=== PATIENT | female | born 1955 | race Caucasian/White ===

== ENCOUNTER → 2019-11-22 | Outpatient (CLI) | payer MEDICARE, SELFPAY ==
[2019-11-22 13:54] LABS: Absolute Lymphocyte Count 1.78 X10^3/uL (0.83-4.51); Absolute Neutrophil Count 6.9 X10^3/uL (2.0-7.7); Basophil# 0.09 X10^3/uL; Basophil% 0.9 % (0-1); Eosinophil# 0.27 X10^3/uL; Eosinophils% 2.8 % (0-5); Hematocrit 36.8 % (37-47); Hemoglobin 12.1 g/dL (12.0-15.0); Lymphocyte # 1.78 X10^3/ul (4.0); Lymphocyte % 18.6 % (19-41); Mean Corp Hgb Conc 32.9 g/dL (32-36); Mean Corpuscular Hgb 31.7 pg (27.0-32.0); Mean Corpuscular Volume 96.3 fL (81-99); Mean Platelet Vol. 9.2 fl (6.2-12.0); Monocyte# 0.54 X10^3/uL; Monocyte% 5.6 % (0-10); NRBC Flagged by Analyzer 0 % (0-5); Neutrophil # 6.85 X10^3/uL (2.7-7.7); Neutrophil % 71.7 % (47-70); Platelet Count 370 K/mm3 (150-450); RBC Distribution Width CV 14.3 % (11.6-14.6); RBC Distribution Width SD 49.9 fl (35.1-43.9); Red Blood Count 3.82 M/mm3 (4.2-5.4); White Blood Count 9.6 K/mm3 (4.4-11.0)
[2019-11-22 14:01] LABS: Color, Urine Yellow (Yellow); Glucose, Dipstick Normal (Normal); Ketone-Dipstick Negative (Negative); Leukocyte Esterase-Dipstick Negative /ul (Negative); Nitrite-Dipstick Negative (Negative); Occult Blood-Urine Negative /ul (Negative); Protein-Dipstick Negative (Negative); Urine Bilirubin Dipstick Negative (Negative); Urine Clarity Clear (Clear); Urine Urobilinogen Normal (Normal)
[2019-11-22 14:20] LABS: Microalbumin,Random Urine 23.5 mg/L (NO RANGE EST.)
[2019-11-22 14:24] LABS: Hemoglobin A1c 6.5 % (3.8-5.6)
[2019-11-22 14:44] LABS: ALB/GLOB Ratio 1.1 RATIO (0.9-2.4); AST(SGOT) 8 U/L (15-37); Alanine Aminotransfer ALT/SGPT 21 U/L (13-56); Albumin, Serum 4.1 g/dL (3.2-5.0); Alkaline Phosphatase 73 U/L (45-117); Anion Gap 9 (5-15); BUN 37 mg/dL (7-18); BUN/Creat Ratio 25.3 RATIO (10-20); Calcium,Total 8.3 mg/dL (8.5-10.1); Chloride 102 mmol/L (98-107); Cholesterol 157 mg/dL (200); Creatinine, Serum 1.46 mg/dL (0.55-1.02); EST Glomerular Filtration Rate 38 mL/min (>60); Est Glom Filt Rate - Afr Amer 47 mL/min (>60); Globulin 3.9 g/dL (2.2-4.2); Glucose 115 mg/dL (74-106); High Density Lipoprotein 38 mg/dL; Potassium 4.8 mmol/L (3.5-5.1); Sodium Level 134 mmol/L (136-145); Triglycerides 328 mg/dL; Very Low Density Lipoprotein 66 mg/dL (5-40)
[2019-11-25 08:53] LABS: Vitamin B12 451 pg/mL (211-911); Vitamin D,25 Hydroxy 69.2 ng/mL
== END | disposition home or self-care (01) ==
LOC: LAB 13:20
PROVIDERS: PCP Family Medicine; Visit Provider Family Medicine
DX: E11.9 Type 2 diabetes mellitus without complications (principal)
CPT/HCPCS: 36415; 80053; 80061; 81002; 82043; 82306; 82607; 83036; 84443; 85025

== ENCOUNTER 2020-03-04 15:05 | Inpatient (IN) | payer MEDICARE, SELFPAY ==
[2020-03-04] VITALS (9 sets, daily range): BP systolic 159–169; BP diastolic 63–76; PULSE 43–67; RESP 15–16; TEMP 36.6–36.8; O2SAT 96–99; BMI 26.6; BMI 26.7
--- NOTE | 2020-03-04 15:08 | EKG12_ITS ---
Test Reason : SOB Blood Pressure : / mmHG Vent. Rate : 049 BPM Atrial Rate : 049 BPM P-R Int : 168 ms QRS Dur : 096 ms QT Int : 462 ms P-R-T Axes : 044 -59 -43 degrees QTc Int : 417 ms Sinus bradycardia with sinus arrhythmia Left axis deviation ST & T wave abnormality, consider anterolateral ischemia Abnormal ECG Confirmed by LAURA LOPEZ, ADELINA ([id number]), research editor AZAEL THORNE ([id number]) on 03/10/2020 8:10:44 AM Referred By: MARK Confirmed By:ADELINA SANCHEZ MD
--- NOTE | 2020-03-04 15:08 | CT_ITS ---
STUDY: CT BRAIN WITHOUT CONTRAST REASON FOR EXAM: Female, 64 years old. CONFUSION RADIATION DOSAGE (If Supplied By Facility): CTDIvol = ( 44.99 ) mGy, DLP = ( 762.36 ) mGycm TECHNIQUE: Transaxial CT imaging of the brain was performed without administration of intravenous contrast material. Individualized dose optimization techniques were used for this CT. COMPARISON: No relevant priors. FINDINGS: Normal soft tissue structures. Normal calvarium. There is mild cerebral atrophy with widening of the extra-axial spaces and ventricular dilatation. Normal white matter tracts of the cerebral hemispheres. Normal basal ganglia and thalami. Normal brainstem. Normal cerebellum. There is no intracranial hemorrhage. There are no findings of an acute ischemic infarction. Mucosal thickening of the maxillary sinuses bilaterally. CT/Brain/Head without Contrast IMPRESSION: Chronic involutional changes of the brain. Electronically Signed: Lloyd Evans, at 16:04 EDT , Service support ,
--- NOTE | 2020-03-04 15:13 | ED.VIS.GEN ---
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 The patient states that she has been feeling sick for about a week. She was around her granddaughter who had an upper respiratory illness. She states that she is had cough and has been feeling short of breath. She describes just generalized weakness. Today, she had a change in her responsiveness. On squad arrival, the patient was more alert and began to answer some questions. There was no reported seizure activity. The patient normally gets her care in the [facility]. She is unsure of all of her medications. She denies any head trauma. She denies any other systemic complaints. Prior similar symptoms: No Recent Illness/Hospitalization: No Past Medical History - Allergies and Home Meds Allergies/Adverse Reactions: Allergies duloxetine [From Cymbalta] Allergy (Verified 03/04/20 15:08) Itching tomato Allergy (Verified 03/04/20 15:08) Itching Primary Care Physician: Yamila Tompkins MD [Primary Care Provider] - Prior records reviewed: Yes Past Medical History: - - Bipolar disorder, chronic diarrhea, chronic kidney disease, diabetes, fibromyalgia, smoking history Surgical History: noncontributory Review of Systems General: Reports: Chills. Denies: Fever, Sweats Eyes: Denies: Visual changes - bilaterally, Diplopia ENT: Denies: Rhinorrhea, Sore throat Cardiovascular: Denies: Chest pain, Palpitations Respiratory: Reports: Cough. Denies: Dyspnea, Dyspnea on exertion Gastrointestinal: Reports: Nausea. Denies: Abdominal pain, Vomiting, Diarrhea, Melena, Hematochezia Genitourinary: Denies: Dysuria, Hematuria, Frequency Musculoskeletal: Denies: Back pain, Extremity Pain Skin: Denies: Rash, Wounds Neurological: Denies: Headache, Weakness, Numbness Psych: Reports: Anxiety Physical Exam Vital Signs/Narrative: Vital Signs Temp Pulse Resp BP Pulse Ox 03/04/20 15:12 98 F 52 L 18 163/71 H 97 03/04/20 15:07 98 F 52 L 18 163/71 H 97 Inital Vital Signs reviewed: Yes General: Well nourished, Well developed, No Acute Distress Head: Normocephalic, Atraumatic Eyes: Perrl, EOMI ENT: Moist mucous membranes, No rhinorrhea Neck: Supple, Nontender Cardiovascular: Regular rate, Regular rhythm, No murmurs Respiratory: No distress, CTA bilaterally, Chest nontender Abdomen: Soft, Nontender, Nondistended, Normal bowel sounds Back: Nontender, Normal Inspection Extremities: Nontender, No edema Skin: Normal color, No rash Neurological: Alert, Cranial nerves II-XII grossly intact, Normal Strength, Normal Sensation, Disoriented Diagnostic/Tx/Re-eval Clinical Impression(s) from Imaging Studies Brain CT 03/04/20 15:08 IMPRESSION: Chronic involutional changes of the brain. Electronically Signed: Lloyd Evans, at 16:04 EDT , Service support , Chest X-Ray 03/04/20 16:05 IMPRESSION: No acute thoracic pathology. Electronically Signed: Davie Rapp, at 16:19 EDT Tel , Service support , Abnormal Lab Results 03/04/20 03/04/20 03/04/20 15:25 15:25 15:25 WBC 12.7 H RBC 4.01 L Hgb 12.1 Hct 38.0 MCV 94.8 MCH 30.2 MCHC 31.8 L RDW Std Deviation 47.8 H RDW Coeff of Yaw 13.7 Plt Count 457 H MPV 8.8 Immature Gran % (Auto) 0.800 Neut % (Auto) 67.8 Lymph % (Auto) 20.1 [place] % (Auto) 7.7 Eos % (Auto) 3.0 Baso % (Auto) 0.6 Absolute Neuts (auto) 8.6 H Absolute Lymphs (auto) 2.55 Nucleated RBC % 0 Specimen Type Sample Site pH Bicarbonate Actual Total CO2 Base Excess O2 Saturation ABG pCO2 ABG pO2 Daniel Test O2 Delivery Device Sodium 135 L Potassium 3.7 Chloride 101 Carbon Dioxide 23.0 Anion Gap 11 BUN 29 H Creatinine 2.82 H Estim Creat Clear Calc 19.34 Est GFR (MDRD) Af Amer 22 L Est GFR (MDRD) Non-Af 18 L BUN/Creatinine Ratio 10.3 Glucose 127 H Lactic Acid 3.2 H* Calcium 8.2 L Total Bilirubin 0.40 AST 20 ALT 20 Alkaline Phosphatase 97 Ammonia Troponin I < 0.015 B-Natriuretic Peptide Total Protein 7.2 Albumin 3.3 Globulin 3.9 Albumin/Globulin Ratio 0.8 L Urine Color Urine Clarity Urine pH Ur Specific [place] Urine Protein Urine Glucose (UA) Urine Ketones Urine Occult Blood Urine Nitrite Urine Bilirubin Urine Urobilinogen Ur Leukocyte Esterase Urine RBC Urine WBC Ur Squamous Epith Cells Urine Bacteria Urine Mucus Urine Opiates Screen Urine Methadone Screen Ur Barbiturates Screen Valproic Acid Ur Phencyclidine Scrn Ur Amphetamines Screen U Methamphetamin-MDMA U Benzodiazepines Scrn Urine Cocaine Screen U Cannabinoids Screen Ur Drug Screen Comment 03/04/20 03/04/20 03/04/20 15:25 15:25 15:25 WBC RBC Hgb Hct MCV MCH MCHC RDW Std Deviation RDW Coeff of Yaw Plt Count MPV Immature Gran % (Auto) Neut % (Auto) Lymph % (Auto) [place] % (Auto) Eos % (Auto) Baso % (Auto) Absolute Neuts (auto) Absolute Lymphs (auto) Nucleated RBC % Specimen Type Sample Site pH Bicarbonate Actual Total CO2 Base Excess O2 Saturation ABG pCO2 ABG pO2 Daniel Test O2 Delivery Device Sodium Potassium Chloride Carbon Dioxide Anion Gap BUN Creatinine Estim Creat Clear Calc Est GFR (MDRD) Af Amer Est GFR (MDRD) Non-Af BUN/Creatinine Ratio Glucose Lactic Acid Calcium Total Bilirubin AST ALT Alkaline Phosphatase Ammonia Troponin I B-Natriuretic Peptide 26.9 Total Protein Albumin Globulin Albumin/Globulin Ratio Urine Color Yellow Urine Clarity Sl. Cloudy Urine pH 6.0 Ur Specific [place] 1.015 Urine Protein 30 H Urine Glucose (UA) Normal Urine Ketones Negative Urine Occult Blood 10 H Urine Nitrite Negative Urine Bilirubin Negative Urine Urobilinogen Normal Ur Leukocyte Esterase Negative Urine RBC 0 SEEN Urine WBC 0 SEEN Ur Squamous Epith Cells 10-25 SEEN Urine Bacteria 2+ Urine Mucus 0 SEEN Urine Opiates Screen NEGATIVE Urine Methadone Screen NEGATIVE Ur Barbiturates Screen NEGATIVE Valproic Acid Ur Phencyclidine Scrn NEGATIVE Ur Amphetamines Screen NEGATIVE U Methamphetamin-MDMA NEGATIVE U Benzodiazepines Scrn NEGATIVE Urine Cocaine Screen NEGATIVE U Cannabinoids Screen NEGATIVE Ur Drug Screen Comment 03/04/20 03/04/20 03/04/20 15:25 15:25 15:43 WBC RBC Hgb Hct MCV MCH MCHC RDW Std Deviation RDW Coeff of Yaw Plt Count MPV Immature Gran % (Auto) Neut % (Auto) Lymph % (Auto) [place] % (Auto) Eos % (Auto) Baso % (Auto) Absolute Neuts (auto) Absolute Lymphs (auto) Nucleated RBC % Specimen Type ART Sample Site R Radial pH 7.38 Bicarbonate Actual 19.5 L Total CO2 21 Base Excess -6 L O2 Saturation 97 ABG pCO2 33.0 L ABG pO2 86 Daniel Test Positive O2 Delivery Device Room Air Sodium Potassium Chloride Carbon Dioxide Anion Gap BUN Creatinine Estim Creat Clear Calc Est GFR (MDRD) Af Amer Est GFR (MDRD) Non-Af BUN/Creatinine Ratio Glucose Lactic Acid Calcium Total Bilirubin AST ALT Alkaline Phosphatase Ammonia < 10.0 L Troponin I B-Natriuretic Peptide Total Protein Albumin Globulin Albumin/Globulin Ratio Urine Color Urine Clarity Urine pH Ur Specific [place] Urine Protein Urine Glucose (UA) Urine Ketones Urine Occult Blood Urine Nitrite Urine Bilirubin Urine Urobilinogen Ur Leukocyte Esterase Urine RBC Urine WBC Ur Squamous Epith Cells Urine Bacteria Urine Mucus Urine Opiates Screen Urine Methadone Screen Ur Barbiturates Screen Valproic Acid 26 L Ur Phencyclidine Scrn Ur Amphetamines Screen U Methamphetamin-MDMA U Benzodiazepines Scrn Urine Cocaine Screen U Cannabinoids Screen Ur Drug Screen Comment - Rhythm Strip Rhythm Strip: Sinus Rhythm Rate: 55 Ectopy: None - EKG Initial EKG Interpretation: Sinus Bradycardia, Non-Specific ST Changes Prior: No Prior - Medical Decision Making The patient presents with malaise, fatigue, and change in mental status. On of arrival, she is awake and alert. She has a nonfocal neurologic examination. He was able to review some of her outpatient testing. The patient is recently diagnosed with exocrine pancreatic insufficiency. She has chronic diarrhea. She states that she has been having diarrhea with more frequency, increasingly weak, and has not been eating or drinking as much. Metabolic work-up was pursued. Noncontrast head CT was obtained given the reported change in mental status. This was negative. She is not meningitic or encephalopathic. EKG was obtained. It does demonstrate sinus bradycardia with some nonspecific ST changes. I was able to review a report from an outpatient EKG that describes it as the same, but was not able to see any of the images. Patient does have my leukocytosis. She also has evidence of acute kidney injury and a mildly elevated lactic acid. She is afebrile. She has no evidence of infectious process. My suspicion is that this is likely prerenal and she is dehydrated from her chronic diarrhea. Patient was given 2 L of fluids. COVID testing was obtained. This was negative. The patient started on magnesium replacement. I do feel that this is an exacerbation of dehydration that is likely causing her symptoms. However, given her bradycardia and acute kidney injury, the patient will be admitted. Impression 1. Bradycardia 2. Acute kidney injury 3. Hypomagnesemia 4. Lactic acidosis ED Disposition - Plan for ED Patient: Referrals: Yamila Tompkins MD [Primary Care Provider] -
[2020-03-04 15:38] LABS: Mucous, Urine 0 SEEN /hpf (<or=2+); Red Blood Cells-Urine 0 SEEN /hpf (0-5); White Blood Cells 0 SEEN /hpf (0-5)
[2020-03-04 15:42] LABS: Absolute Lymphocyte Count 2.55 X10^3/uL (0.83-4.51); Absolute Neutrophil Count 8.6 X10^3/uL (2.0-7.7); Basophil# 0.07 X10^3/uL; Basophil% 0.6 % (0-1); Eosinophil# 0.38 X10^3/uL; Hemoglobin 12.1 g/dL (12.0-15.0); Lymphocyte # 2.55 X10^3/ul (4.0); Lymphocyte % 20.1 % (19-41); Mean Corp Hgb Conc 31.8 g/dL (32-36); Mean Corpuscular Hgb 30.2 pg (27.0-32.0); Mean Corpuscular Volume 94.8 fL (81-99); Mean Platelet Vol. 8.8 fl (6.2-12.0); Monocyte# 0.98 X10^3/uL; Monocyte% 7.7 % (0-10); NRBC Flagged by Analyzer 0 % (0-5); Neutrophil # 8.59 X10^3/uL (2.7-7.7); Neutrophil % 67.8 % (47-70); Platelet Count 457 K/mm3 (150-450); RBC Distribution Width CV 13.7 % (11.6-14.6); RBC Distribution Width SD 47.8 fl (35.1-43.9); Red Blood Count 4.01 M/mm3 (4.2-5.4); White Blood Count 12.7 K/mm3 (4.4-11.0)
[2020-03-04 15:44] LABS: Vista UDS pH Range 6
[2020-03-04 15:50] LABS: Allen Test Positive; Base Excess -6 mmol/L (-2 to +2); Bicarbonate 19.5 mmol/L (22-26); Blood Gas Specimen Type ART; O2 Delivery Device Room Air; PO2 86 mmHG (75-100); SITE R Radial; SO2 97 % (95-99); Total Carbon Dioxide 21 mmol/L; pH 7.38 (7.35-7.45)
[2020-03-04 15:55] LABS: Amphetamine Urine VISTA NEGATIVE (<1000 ng/mL); Barbiturate Urine VISTA NEGATIVE (< 200 ng/mL); Benzodiazepine Urine VISTA NEGATIVE (< 200 ng/mL); Cocaine Urine VISTA NEGATIVE (< 300 ng/mL); Ecstacy Urine VISTA NEGATIVE (< 500 ng/mL); Methadone Urine VISTA NEGATIVE (< 300 ng/mL); PCP Urine VISTA NEGATIVE (< 25 ng/mL); THC Urine VISTA NEGATIVE (< 50 ng/mL)
[2020-03-04 16:03] LABS: BNP,B-Type NATRIURETIC PEPTIDE 26.9 pg/mL (0-100)
--- NOTE | 2020-03-04 16:05 | RAD_ITS ---
STUDY: X-RAY CHEST REASON FOR EXAM: Female, 64 years old. Confusion TECHNIQUE: Frontal view of the chest COMPARISON: None. FINDINGS: The lungs are clear. There are no pleural effusions. There is no pneumothorax. The heart is normal in size. The visualized osseous structures are within normal limits. RAD/Chest 1 View (Portable) IMPRESSION: No acute thoracic pathology. Electronically Signed: Davie Rapp, at 16:19 EDT Tel , Service support ,
[2020-03-04 16:07] LABS: ALB/GLOB Ratio 0.8 RATIO (0.9-2.4); AST(SGOT) 20 U/L (15-37); Alanine Aminotransfer ALT/SGPT 20 U/L (13-56); Albumin, Serum 3.3 g/dL (3.2-5.0); Alkaline Phosphatase 97 U/L (45-117); Ammonia < 10.0 umol/L (11-32); Anion Gap 11 (5-15); BUN 29 mg/dL (7-18); BUN/Creat Ratio 10.3 RATIO (10-20); Calcium,Total 8.2 mg/dL (8.5-10.1); Chloride 101 mmol/L (98-107); Creatinine, Serum 2.82 mg/dL (0.55-1.02); EST Glomerular Filtration Rate 18 mL/min (>60); Est Glom Filt Rate - Afr Amer 22 mL/min (>60); Estimated Creatinine Clearance 19.34 ml/min; Globulin 3.9 g/dL (2.2-4.2); Glucose 127 mg/dL (74-106); Potassium 3.7 mmol/L (3.5-5.1); Protein, Total 7.2 g/dL (6.4-8.2); Sodium Level 135 mmol/L (136-145)
[2020-03-04 16:11] LABS: Color, Urine Yellow (Yellow); Glucose, Dipstick Normal (Normal); Ketone-Dipstick Negative (Negative); Leukocyte Esterase-Dipstick Negative /ul (Negative); Nitrite-Dipstick Negative (Negative); Occult Blood-Urine 10 /ul (Negative); Protein-Dipstick 30 mg/dl (Negative); Specific Gravity, Urine 1.015 (1.002-1.030); Urine Bilirubin Dipstick Negative (Negative); Urine Clarity Sl. Cloudy (Clear); Urine Urobilinogen Normal (Normal)
[2020-03-04] MEDS: 0.9% Normal Saline 1,000 ML 999 ML IV ×2 (16:12→17:14)
--- NOTE | 2020-03-04 16:15 | ED.RN ---
MADE AWARE OF SEPSIS ALERT
[2020-03-04 16:18] LABS: Valproic Acid (Depakene) Level 26 ug/mL (50-100)
[2020-03-04 16:21] LABS: Lactic Acid 3.2 mmol/L (0.4-1.9)
[2020-03-04 16:26] LABS: Bacteria 2+ /hpf (None Seen); Squamous Epithelial Cells - UA 10-25 SEEN /hpf (5-10)
[2020-03-04 18:04] LABS: Magnesium 0.9 mg/dL (1.6-2.6)
--- NOTE | 2020-03-04 18:56 | HP.PCM_ITS ---
Problem List (1) Lactic acidosis Status: Acute (2) Hypomagnesemia Status: Acute (3) Acute kidney injury superimposed on chronic kidney disease Status: Acute (4) Symptomatic bradycardia Status: Acute (5) Hyperlipidemia Status: Chronic (6) Type 2 diabetes mellitus Status: Chronic (7) Hypothyroidism Status: Chronic (8) Hypertension Status: Chronic (9) Bipolar disorder Status: Chronic (10) Chronic pancreatic insufficiency Status: Chronic (11) Depression Status: Chronic History of Present Illness Date of Admission: 03/04/20 Chief Complaint: Dizziness, near syncope. The patient is a 64 year old F with past medical history as mentioned above presented to the emergency room because of dizziness and near syncopal episode. Patient stated that she was standing in the kitchen started to prepare her dinner, felt dizzy and lightheaded, she laid herself slowly to the floor but she denied loss of consciousness. She reported mild shortness of breath associated with it. She denied chest pain, palpitation. She reported cough which has been going on for several days, no sputum production. She denies fever or chills. She reported poor appetite and poor oral intake. She does have chronic diarrhea secondary to chronic pancreatic insufficiency. She history of type 2 diabetes mellitus, has been on Lantus and her blood sugar has been under control, her hemoglobin A1c was 6.5% on November,. She had history of hypothyroidism, she has been on levothyroxine and TSH was normal on November,. She had history of chronic pancreatic insufficiency with chronic diarrhea at baseline and she has been on Creon replacement. In the emergency department, patient was afebrile, bradycardic with heart rate of mid 40s, blood pressure was slightly dilated, pulse ox was maintained on room air. Routine blood work was remarkable for mild leukocytosis, BUN of 29, creatinine is 2.82. Lactic acid was 3.2. Serum magnesium was 0.9. LFT was unremarkable. EKG revealed sinus bradycardia, no acute segment changes. Troponin was negative. Ammonia level was less than 10. Urinalysis revealed cloudy urine, negative for nitrite and leukocyte esterase, there was no WBCs, 2+ bacteria seen. Urine drug screen was negative. COVID-19 PCR was negative. Chest x-ray showed no acute findings. CT scan brain showed no acute findings. She is being admitted for acute kidney injury on top of stage III 3 kidney disease, symptomatic bradycardia and hypomagnesemia. Past Medical History Past Medical History (Chronic Problems): Chronic Problems Hyperlipidemia (Chronic) Type 2 diabetes mellitus (Chronic) Hypothyroidism (Chronic) Hypertension (Chronic) Bipolar disorder (Chronic) Chronic pancreatic insufficiency (Chronic) Depression (Chronic) Allergies duloxetine [From Cymbalta] Allergy (Verified 03/04/20 15:08) Itching tomato Allergy (Verified 03/04/20 15:08) Itching Home Medications: Ambulatory Orders Medication Instructions Recorded Allopurinol 100 mg PO QHS 03/04/20 Atorvastatin Calcium [Lipitor] 20 mg PO DAILY 03/04/20 Divalproex Sodium 125 mg PO BID 03/04/20 Gabapentin [Neurontin] 600 mg PO TID 03/04/20 Hydrocodone/Acetaminophen 1 - 2 tab PO Q4H PRN PRN 03/04/20 [Hydrocodone-Acetamin 5-325 mg] Hydroxyzine HCl 25 mg PO DAILY 03/04/20 Insulin Glargine [Lantus SoloStar 40 units SQ QHS 03/04/20 Pen] Levothyroxine [Synthroid] 112 mcg PO DAILY 03/04/20 Lipase/Protease/Amylase [Creon Dr 2 cap PO BIDCM 03/04/20 24,000 Units Capsule] Metoprolol Tartrate 50 mg PO BID 03/04/20 Pantoprazole Sodium [Protonix] 40 mg PO DAILY 03/04/20 Trazodone HCl 150 mg PO QHS 03/04/20 Triamterene 37.5MG/Hctz 25MG 1 tab PO DAILY 03/04/20 [Maxzide 37.5 mg-25 mg Tablet] Surgical History: appendectomy, cholecystectomy, hysterectomy, - - Carpal tunnel surgery. 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 Denies: Chills, Fever Eyes: Denies: Blurred vision, Double vision, Drainage, Redness HEENT: Denies: Difficulty Hearing, Ear Pain, Eye Pain, Nasal Congestion, Sore Throat Cardiovascular: Denies: Chest Pain, Chest Pressure, Edema, Heaviness, Light Headedness, Palpitations, Syncope Respiratory: Denies: Cough, Pleuritic Pain, Shortness of Breath, Sputum production, Wheezing Gastrointestinal: Reports: Diarrhea. Denies: Abdominal Pain, Constipation, Nausea, Vomiting Genitourinary: Denies: Dysuria, Frequency, Hematuria Musculoskeletal: Denies: Arm Pain, Back Pain, Foot Pain Skin: Denies: Dryness, Rash Neurological: Denies: Balance problems, Double vision, Change in Speech, Slurred speech, Confusion, Headaches, Incoordination, Numbness Psychiatric: Reports: Depression. Denies: Anxiety Endocrine: Denies: Change in Body Habitus, Polydipsia, Polyuria VTE Information - Inpt Only VTE Present on Admission: No VTE Mechan Device Prophylaxis: None VTE Pharm Prophylaxis ordered?: Yes Patient Problems: Active and Suspected Problems Lactic acidosis (Acute) Hypomagnesemia (Acute) Acute kidney injury superimposed on chronic kidney disease (Acute) Symptomatic bradycardia (Acute) - Physical Exam Vitals/I&O's: Vital Signs Temp Pulse Resp BP Pulse Ox 97.8 F 43 L 16 168/63 H 99 03/04/20 18:53 03/04/20 18:53 03/04/20 18:53 03/04/20 18:53 03/04/20 18:53 Weight: 132 lb 4.438 oz Body Mass Index (BMI) 26.6 Intake and Output for Last 24 Hours 03/02/20 03/03/20 03/04/20 23:59 23:59 23:59 Intake Total 1999 Balance 1999 General: Alert, Oriented x3, Cooperative, No apparent distress HEENT: Atraumatic, PERRLA, EOMI, Normocephalic Oral: No Gingival or Mucosal Lesions/ Ulcerations, Dry Mucosa Neck: Supple, No JVD, Negative Carotid Bruits, Trachea Midline, Thyroid Normal Size and Texture Lungs: Clear to auscultation, Normal air movement, No rhonchi, No wheeze, No rales Cardiovascular: Regular rate, Regular Rhythm, Normal S1, Normal S2, PMI Normal, Bradycardic Abdomen: Bowel Sounds Present, Soft, Non Tender, Non-Distended, No Hepato-splenomegaly Extremities: No clubbing, No cyanosis, No edema Skin: No rashes, No breakdown Lymphatic: No Cervical, Supraclavicular, or Inguinal Adenopathy Neurological: Cranial nerves II-XII grossly intact, Motor Exam 5/5 strength throughout Psych/Mental Status: Normal Affect, Appropriate, Alert and oriented to time, place, person, mood and affect Laboratory Results 03/04/20 15:25: WBC 12.7 H, RBC 4.01 L, Hgb 12.1, Hct 38.0, MCV 94.8, MCH 30.2, MCHC 31.8 L, RDW Std Deviation 47.8 H, RDW Coeff of Yaw 13.7, Plt Count 457 H, MPV 8.8, Immature Gran % (Auto) 0.800, Neut % (Auto) 67.8, Lymph % (Auto) 20.1, [place] % (Auto) 7.7, Eos % (Auto) 3.0, Baso % (Auto) 0.6, Absolute Neuts (auto) 8.6 H, Absolute Lymphs (auto) 2.55, Nucleated RBC % 0 03/04/20 15:25: Sodium 135 L, Potassium 3.7, Chloride 101, Carbon Dioxide 23.0, Anion Gap 11, BUN 29 H, Creatinine 2.82 H, Estim Creat Clear Calc 19.34, Est GFR (MDRD) Af Amer 22 L, Est GFR (MDRD) Non-Af 18 L, BUN/Creatinine Ratio 10.3, Glucose 127 H, Calcium 8.2 L, Total Bilirubin 0.40, AST 20, ALT 20, Alkaline Phosphatase 97, Troponin I < 0.015, Total Protein 7.2, Albumin 3.3, Globulin 3.9, Albumin/Globulin Ratio 0.8 L 03/04/20 15:25: Lactic Acid 3.2 H* 03/04/20 15:25: B-Natriuretic Peptide 26.9 03/04/20 15:25: Urine Color Yellow, Urine Clarity Sl. Cloudy, Urine pH 6.0, Ur Specific [place] 1.015, Urine Protein 30 H, Urine Glucose (UA) Normal, Urine Ketones Negative, Urine Occult Blood 10 H, Urine Nitrite Negative, Urine Bilirubin Negative, Urine Urobilinogen Normal, Ur Leukocyte Esterase Negative, Urine RBC 0 SEEN, Urine WBC 0 SEEN, Ur Squamous Epith Cells 10-25 SEEN, Urine Bacteria 2+, Urine Mucus 0 SEEN 03/04/20 15:25: Urine Opiates Screen NEGATIVE, Urine Methadone Screen NEGATIVE, Ur Barbiturates Screen NEGATIVE, Ur Phencyclidine Scrn NEGATIVE, Ur Amphetamines Screen NEGATIVE, U Methamphetamin-MDMA NEGATIVE, U Benzodiazepines Scrn NEGATIVE, Urine Cocaine Screen NEGATIVE, U Cannabinoids Screen NEGATIVE, Ur Drug Screen Comment 03/04/20 15:25: Valproic Acid 26 L 03/04/20 15:25: Ammonia < 10.0 L 03/04/20 15:25: Magnesium 0.9 L* 03/04/20 15:30: COVID-19 (JUAN) Not Detected 03/04/20 15:43: Specimen Type ART, Sample Site R Radial, pH 7.38, Bicarbonate Actual 19.5 L, Total CO2 21, Base Excess -6 L, O2 Saturation 97, ABG pCO2 33.0 L , ABG pO2 86, Daniel Test Positive, O2 Delivery Device Room Air Clinical Impression(s) from Imaging Studies Brain CT 03/04/20 15:08 IMPRESSION: Chronic involutional changes of the brain. Electronically Signed: Lloyd Evans, at 16:04 EDT , Service support , Chest X-Ray 03/04/20 16:05 IMPRESSION: No acute thoracic pathology. Electronically Signed: Davie Rapp, at 16:19 EDT Tel , Service support , Current Medications Magnesium Sulfate 2 gm/ Sodium (Chloride) 104 mls @ 52 mls/hr IV X1 ONE Stop: 03/04/20 20:03 Assessment/Plan All Active Problems Lactic acidosis (Acute) Hypomagnesemia (Acute) Acute kidney injury superimposed on chronic kidney disease (Acute) Symptomatic bradycardia (Acute) This is a 64 years old female patient presented to the emergency room because of dizziness, near syncopal episode as well as weakness and mild shortness of breath, found to have acute kidney injury on top of stage III chronic kidney dis ease, symptomatic bradycardia as well as severe hypomagnesemia and she is being admitted for evaluation and treatment. #1 dizziness/presyncopal episode: Is probably due to bradycardia in addition to acute kidney injury. Heart rate has been in the mid 40s in the ED, blood pressure was elevated. EKG revealed sinus bradycardia, otherwise no acute ischemic changes or other cardiac arrhythmias. Troponin is negative. CT scan brain showed no acute findings. Chest x-ray without acute infiltrate or consolidation. Urinalysis was negative for UTI. Plan: Admit to PCU, cardiac monitoring, IV fluids, decrease dose of metoprolol, input output chart, repeat CBC and BMP tomorrow morning, PT OT evaluation and treatment. #2 acute kidney injury on top of stage III chronic kidney disease: Creatinine w as 1.46 on November,, it is 2.82 today. It is prerenal secondary to poor oral intake, dehydration and chronic diarrhea. Plan: IV fluids, input output chart, hold nephrotoxic drugs, repeat BMP tomorrow morning. #3 asymptomatic bradycardia: Likely due to beta-blockers, no evidence of other cardiac arrhythmias on EKG. Troponin is negative. Plan to decrease metoprolol to 12.5 mg p.o. twice daily, monitor, repeat EKG tomorrow morning. #4 severe hypomagnesemia: Replace magnesium with IV magnesium sulfate, repeat serum medicine tomorrow morning. Serum potassium is normal. #5 leukocytosis/lactic acidosis: Likely secondary to dehydration and bradycardia. No evidence of infection. Chest x-ray and UA was unremarkable. Patient has been afebrile. Plan as above, IV fluids, repeat lactic acid in 3 hours. No indication to start IV antibiotics. #6 type 2 diabetes mellitus: ADA diet, Accu-Cheks, insulin sliding scale, continue Lantus insulin. #7 hypertension: Currently, blood pressures like elevated. Plan to adjust metoprolol as above, hold lisinopril, start IV Thorazine as needed. May need to start different antihypertensive medications if blood pressure remained on the higher side. #8 hypothyroidism: Continue levothyroxine. #9 depression/bipolar disorder: Continue trazodone and Depakote. #10 chronic pancreatic insufficiency: With chronic diarrhea, continue Creon. #11 DVT prophylaxis: Subcu heparin. This note was generated with [employer] dictation software. It may contain incorrect words, spelling, and punctuation that were not noted in checking the note before signing. Inpatient E&M: 93574 Init Hosp L3
[2020-03-04 19:36] LABS: Reflex Lactate? Y
[2020-03-04] MEDS: 0.9% Normal Saline 1,000 ML 100 ML IV (20:18)
[2020-03-04 21:18] LABS: Lactic Acid 1.1 mmol/L (0.4-1.9)
[2020-03-04] MEDS: traZODone 100 MG Tablet 150 MG PO (21:46)
[2020-03-04] MEDS: Heparin Injection (Vial) 5,000 UNIT/ML VIAL 5000 UNIT SC (21:46)
[2020-03-04] MEDS: Gabapentin 600 MG Tablet PO (21:48)
[2020-03-04] MEDS: Divalproex Sodium 125 MG SPRINKLE PO (21:52)
[2020-03-04 22:35] LABS: Bedside Glucose 125 mg/dL (70-110)
[2020-03-05] VITALS (14 sets, daily range): BP systolic 89–179; BP diastolic 47–79; PULSE 45–67; RESP 16–18; TEMP 36.2–36.8; O2SAT 93–98
[2020-03-05 05:41] LABS: Absolute Lymphocyte Count 2.96 X10^3/uL (0.83-4.51); Absolute Neutrophil Count 5.5 X10^3/uL (2.0-7.7); Basophil# 0.07 X10^3/uL; Basophil% 0.7 % (0-1); Eosinophils% 4.1 % (0-5); Hematocrit 32.9 % (37-47); Hemoglobin 10.4 g/dL (12.0-15.0); Lymphocyte # 2.96 X10^3/ul (4.0); Lymphocyte % 30.6 % (19-41); Mean Corp Hgb Conc 31.6 g/dL (32-36); Mean Corpuscular Hgb 30.6 pg (27.0-32.0); Mean Corpuscular Volume 96.8 fL (81-99); Mean Platelet Vol. 8.8 fl (6.2-12.0); Monocyte# 0.69 X10^3/uL; Monocyte% 7.1 % (0-10); NRBC Flagged by Analyzer 0 % (0-5); Neutrophil # 5.52 X10^3/uL (2.7-7.7); Neutrophil % 57.2 % (47-70); Platelet Count 384 K/mm3 (150-450); RBC Distribution Width CV 13.8 % (11.6-14.6); RBC Distribution Width SD 48.4 fl (35.1-43.9); White Blood Count 9.7 K/mm3 (4.4-11.0)
--- NOTE | 2020-03-05 05:55 | EKG12_ITS ---
Test Reason : CP Blood Pressure : / mmHG Vent. Rate : 071 BPM Atrial Rate : 071 BPM P-R Int : 142 ms QRS Dur : 090 ms QT Int : 350 ms P-R-T Axes : 073 -57 100 degrees QTc Int : 380 ms Sinus rhythm with Premature supraventricular complexes Left axis deviation Nonspecific ST and T wave abnormality Abnormal ECG Confirmed by LAURA LOPEZ, ADELINA ([id number]), editor in chief newspaper AZAEL THORNE ([id number]) on 03/09/2020 8:04:16 AM Referred By: PCU NURSE Confirmed By:ADELINA SANCHEZ MD
[2020-03-05 05:58] LABS: Anion Gap 5 (5-15); BUN 25 mg/dL (7-18); BUN/Creat Ratio 15.3 RATIO (10-20); Calcium,Total 7.4 mg/dL (8.5-10.1); Chloride 107 mmol/L (98-107); Creatinine, Serum 1.63 mg/dL (0.55-1.02); EST Glomerular Filtration Rate 34 mL/min (>60); Est Glom Filt Rate - Afr Amer 41 mL/min (>60); Estimated Creatinine Clearance 33.39 ml/min; Glucose 128 mg/dL (74-106); Potassium 3.7 mmol/L (3.5-5.1); Sodium Level 138 mmol/L (136-145)
[2020-03-05] MEDS: Heparin Injection (Vial) 5,000 UNIT/ML VIAL 5000 UNIT SC ×3 (06:05→23:05)
[2020-03-05] MEDS: Gabapentin 600 MG Tablet PO ×3 (06:05→23:04)
[2020-03-05] MEDS: Levothyroxine 112 MCG Tablet PO (06:06)
[2020-03-05] MEDS: 0.9% Normal Saline 1,000 ML 100 ML IV (06:06)
[2020-03-05] MEDS: Creon 24,000 unit DR Capsule 2 CAP PO ×4 (06:11→23:03)
[2020-03-05 07:00] LABS: Bedside Glucose 122 mg/dL (70-110)
[2020-03-05] MEDS: Pantoprazole Sodium 40 MG Tablet PO (08:01)
[2020-03-05] MEDS: Divalproex Sodium 125 MG SPRINKLE PO ×2 (08:02→23:04)
[2020-03-05 10:51] LABS: Bedside Glucose 142 mg/dL (70-110)
[2020-03-05 11:17] LABS: Magnesium 2.4 mg/dL (1.6-2.6); Thyroid Stim Hormone (TSH) 1.38 uIU/mL (0.358-3.74)
[2020-03-05] MEDS: Insulin Lispro 100 UNIT/ML INSULN.PEN SC ×3 (11:43→23:04)
[2020-03-05 13:16] LABS: Bedside Glucose 228 mg/dL (70-110)
--- NOTE | 2020-03-05 13:26 | CHAPLAIN ---
Type of Pastoral Visit _x__ Initial Visit ___ Follow-up Visit ___ On-call Visit ___ General Patient Visit ___ Spiritual Assessment ___ Family Conference ___ Bereavement ___ Rapid Response ___ Code Blue ___ Other (describe below) Pastoral Care Referral From _x__ Patient ___ Family ___ Nurse ___ Physician ___ Ordnance Officer ___ Paper Winder ___ Other (describe below) Sacrament/Intervention _x__ Active listening ___ Anointing ___ Mormonism ___ Bereavement ___ Communion _x__ Tabatha exploration ___ _x__ Life review _x__ Prayer ___ Reconciliation ___ Sacrament of Sick _x__ Supportive presence ___ Wedding ___ Other (describe below) Pastoral Comments
--- NOTE | 2020-03-05 13:42 | CASEMGMT ---
Assessment- SW met with patient, introduced self and role at [facility]. She was agreeable to complete assessment with SW. Living situation- Patient lives with her mother in a mobile home with a ramp entrance. 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 PCP: Dr Yamila Tompkins Specialists: Supervisor Dog License Officer-Dr Cali with [facility] in [place], and Dr [facility]: [facility] DME: Shower chair, walker, cane, bedside commode, raised toilet seat, grab bars, and a wheelchair ADL's/IADL's: Patient is independent with all activities of daily living. She helps care for her mother who has Alzheimers. Past SNF/rehab: None Past HH: None LW: No. She would like more information POA: No. She would like more information. Plan: Patient advocate spoke with patient earlier today and said patient is very stressed and could use some resources. SW asked patient about her situation. She said she is , but their home is falling apart. She cannot live there in that condition and her won't do anything to fix the home. She was staying with different family members until COVID hit. Then she moved in with her mom to help care for her as she has Alzheimer's. Her siblings never help. When she leaves the home to try and do something for herself her mom calls her every 5 minutes. SW listened and provided emotional support. SW told her about Alzheimer's Association and [facility] [employer] [facility]. SW told her SW will give her information on these agencies as they may be able to help. She also expressed interest in advance directives. TONY told her SW will bring documents when SW brings Alzheimer's information and [facility] [employer] [facility] information. Jory LOGAN MSW
--- NOTE | 2020-03-05 13:59 | PCM.PN.HOSP ---
<Justice Mason PA - Last Filed: 03/05/20 14:12> Patient Problems: Active and Suspected Problems Lactic acidosis (Acute) Hypomagnesemia (Acute) Acute kidney injury superimposed on chronic kidney disease (Acute) Symptomatic bradycardia (Acute) Reason for Visit: No complaints at this time. No dizziness, No lightheadedness. No fever / chills. Pt recently had URI with rhinitis, sinus congestion, postnasal drip, no SOB, some occasional dry cough. Pt reports her URI symptoms have all been improving. She has chronic diarrhea 2/2 pancreatic insufficiency. Vitals/I&O's: Vital Signs Temp Pulse Resp BP Pulse Ox 98.0 F 50 L 18 150/68 H 97 03/05/20 09:45 03/05/20 09:45 03/05/20 09:45 03/05/20 09:45 03/05/20 09:45 Oxygen Delivery Method Room Air Weight: 132 lb Body Mass Index (BMI) 26.6 Intake and Output for Last 24 Hours 03/03/20 03/04/20 03/05/20 23:59 23:59 23:59 Intake Total 2208 / 2568 2280 / 2280 Balance 2208 / 2568 2280 / 2280 General: Alert, Oriented x3, Cooperative HEENT: Atraumatic, PERRLA, EOMI, Normocephalic Neck: Supple, No JVD, Negative Carotid Bruits Lungs: Clear to auscultation, Normal air movement Cardiovascular: Regular rate, No murmurs Abdomen: Bowel Sounds Present, Soft, Non Tender Extremities: No edema, Capillary Refill Less than 3 Seconds Skin: No rashes, No breakdown Musculoskeletal: No Tenderness to Palpation of Joints or Extremities Neurological: Cranial nerves II-XII grossly intact Psych/Mental Status: Normal Affect, Appropriate, Alert and oriented to time, place, person, mood and affect Laboratory Results 03/04/20 15:25: WBC 12.7 H, RBC 4.01 L, Hgb 12.1, Hct 38.0, MCV 94.8, MCH 30.2, MCHC 31.8 L, RDW Std Deviation 47.8 H, RDW Coeff of Yaw 13.7, Plt Count 457 H, MPV 8.8, Immature Gran % (Auto) 0.800, Neut % (Auto) 67.8, Lymph % (Auto) 20.1, Maverick % (Auto) 7.7, Eos % (Auto) 3.0, Baso % (Auto) 0.6, Absolute Neuts (auto) 8.6 H, Absolute Lymphs (auto) 2.55, Nucleated RBC % 0 03/04/20 15:25: Sodium 135 L, Potassium 3.7, Chloride 101, Carbon Dioxide 23.0, Anion Gap 11, BUN 29 H, Creatinine 2.82 H, Estim Creat Clear Calc 19.34, Est GFR (MDRD) Af Amer 22 L, Est GFR (MDRD) Non-Af 18 L, BUN/Creatinine Ratio 10.3, Glucose 127 H, Calcium 8.2 L, Total Bilirubin 0.40, AST 20, ALT 20, Alkaline Phosphatase 97, Troponin I < 0.015, Total Protein 7.2, Albumin 3.3, Globulin 3.9, Albumin/Globulin Ratio 0.8 L 03/04/20 15:25: Lactic Acid 3.2 H* 03/04/20 15:25: B-Natriuretic Peptide 26.9 03/04/20 15:25: Urine Color Yellow, Urine Clarity Sl. Cloudy, Urine pH 6.0, Ur Specific Burdette 1.015, Urine Protein 30 H, Urine Glucose (UA) Normal, Urine Ketones Negative, Urine Occult Blood 10 H, Urine Nitrite Negative, Urine Bilirubin Negative, Urine Urobilinogen Normal, Ur Leukocyte Esterase Negative, Urine RBC 0 SEEN, Urine WBC 0 SEEN, Ur Squamous Epith Cells 10-25 SEEN, Urine Bacteria 2+, Urine Mucus 0 SEEN 03/04/20 15:25: Urine Opiates Screen NEGATIVE, Urine Methadone Screen NEGATIVE, Ur Barbiturates Screen NEGATIVE, Ur Phencyclidine Scrn NEGATIVE, Ur Amphetamines Screen NEGATIVE, U Methamphetamin-MDMA NEGATIVE, U Benzodiazepines Scrn NEGATIVE, Urine Cocaine Screen NEGATIVE, U Cannabinoids Screen NEGATIVE, Ur Drug Screen Comment 03/04/20 15:25: Valproic Acid 26 L 03/04/20 15:25: Ammonia < 10.0 L 03/04/20 15:25: Magnesium 0.9 L* 03/04/20 15:30: COVID-19 (JUAN) Not Detected 03/04/20 15:43: Specimen Type ART, Sample Site R Radial, pH 7.38, Bicarbonate Actual 19.5 L, Total CO2 21, Base Excess -6 L, O2 Saturation 97, ABG pCO2 33.0 L, ABG pO2 86, Daniel Test Positive, O2 Delivery Device Room Air 03/04/20 20:30: Lactic Acid 1.1 03/04/20 21:44: POC Glucose 125 H 03/05/20 05:08: WBC 9.7, RBC 3.40 L, Hgb 10.4 L, Hct 32.9 L, MCV 96.8, MCH 30.6, MCHC 31.6 L, RDW Std Deviation 48.4 H, RDW Coeff of Yaw 13.8, Plt Count 384, MPV 8.8, Immature Gran % (Auto) 0.300, Neut % (Auto) 57.2, Lymph % (Auto) 30.6, Maverick % (Auto) 7.1, Eos % (Auto) 4.1, Baso % (Auto) 0.7, Absolute Neuts (auto) 5.5, Absolute Lymphs (auto) 2.96, Nucleated RBC % 0 03/05/20 05:08: Sodium 138, Potassium 3.7, Chloride 107, Carbon Dioxide 26.0, Anion Gap 5, BUN 25 H, Creatinine 1.63 H, Estim Creat Clear Calc 33.39, Est GFR (MDRD) Af Amer 41 L, Est GFR (MDRD) Non-Af 34 L, BUN/Creatinine Ratio 15.3, Glucose 128 H, Calcium 7.4 L 03/05/20 05:08: Magnesium 2.4, TSH 1.38 03/05/20 06:50: POC Glucose 122 H 03/05/20 08:05: POC Glucose 142 H 03/05/20 11:36: POC Glucose 228 H Current Medications Acetaminophen (Acetaminophen 325 Mg Tablet) 650 mg PO Q6H PRN PRN PRN Reason: Pain Score 1-10/Temp > 100.7 F Amlodipine Besylate (Amlodipine 10 Mg Tablet) 10 mg PO DAILY [facility] Atorvastatin Calcium (Atorvastatin Calcium 20 Mg Tablet) 20 mg PO QHS [facility] Divalproex Sodium (Divalproex Sodium 125 Mg Sprinkle) 125 mg PO BID [facility] Last Admin: 03/05/20 08:02 Dose: 125 mg Documented by: Gabapentin (Gabapentin 600 Mg Tablet) 600 mg PO TID [facility] Last Admin: 03/05/20 06:05 Dose: 600 mg Documented by: Heparin Sodium (Porcine) (Heparin Injection (Vial) 5,000 Unit/Ml Vial) 5,000 unit SC Q8 [facility] Last Admin: 03/05/20 06:05 Dose: 5,000 unit Documented by: Hydralazine HCl (Hydralazine 50 Mg Tablet) 50 mg PO TID [facility] Hydroxyzine Pamoate (Hydroxyzine Buffy 25 Mg Capsule) 25 mg PO DAILY [facility] Last Admin: 03/05/20 08:07 Dose: Not Given Documented by: Sodium Chloride () 1,000 mls @ 100 mls/hr IV .Q10H [facility] Last Admin: 03/05/20 06:06 Dose: 100 mls/hr Documented by: Insulin Glargine (Insulin Glargine 100 Units/Ml Pen) 38 units SC DAILY [facility] Last Admin: 03/05/20 08:03 Dose: 38 u Documented by: Insulin Human Lispro (Insulin Lispro 100 Unit/Ml Insuln.Pen) 0 unit SC [facility]; Protocol Last Admin: 03/05/20 11:43 Dose: 2 u Documented by: Levothyroxine Sodium (Levothyroxine 112 Mcg Tablet) 112 mcg PO DAILY@0600 [facility] Last Admin: 03/05/20 06:06 Dose: 112 mcg Documented by: Ondansetron HCl (Ondansetron 4 Mg/2 Ml Vial) 4 mg IV Q8H PRN PRN PRN Reason: NAUSEA/VOMITING Pancrelipase (Creon 24,[address] Capsule) 2 capsule PO [facility] Last Admin: 03/05/20 11:33 Dose: 2 capsule Documented by: Pantoprazole Sodium (Pantoprazole Sodium 40 Mg Tablet) 40 mg PO DAILY [facility] Last Admin: 03/05/20 08:01 Dose: 40 mg Documented by: Senna/Docusate Sodium (Senna/Docusate Sodium 1 Tablet) 2 tablet PO BID PRN PRN PRN Reason: Constipation Sodium Chloride (0.9% Saline Lock 10 Ml Syringe) 10 - 40 ml IV UD PRN PRN Reason: SALINE FLUSH Trazodone HCl (Trazodone 100 Mg Tablet) 150 mg PO QHS [facility] Last Admin: 03/04/20 21:46 Dose: 150 mg Documented by: Medical Necessity - Tobacco Use Smoking Status: Current every day smoker Tobacco Use: Cigarettes Assessment/Plan All Active Problems Lactic acidosis (Acute) Hypomagnesemia (Acute) Acute kidney injury superimposed on chronic kidney disease (Acute) Symptomatic bradycardia (Acute) 1. Dizziness/Presyncope 2/2 bradycardia - pt denied dizziness today. rate improved, still somewhat ru with rate in the 50s. Metoprolol discontinued completely. Electrolytes have improved. TSH normal. Check orthos. 2. SALVATORE 2/2 dehydration likely due to chronic diarrhea - improving. Continue IV fluids. 3. Recent URI - symptoms have been improving. Covid test negative. WBCs improved. no fever. 4. Dmt2 - A1C 6.5%, continue lantus, SSI 5. Hypothyroidism - tsh normal, continue synthroid 6. Bipolar disorder - depakote, trazodone, vistaril 7. Chronic pancreatic insufficiency - creon, chronic diarrhea 8. HTN - off triemterene HCTZ, started norvasc, hydralazine DVT ppx: heparin DC planning: Recheck renal function in AM. Likely home no needs. This patient was seen by Justice Mason PA-C under the supervision of Dr. Marie <Daisha Marie - Last Filed: 03/05/20 17:01> Subjective: Pt states that she is feeling better. Recently started on the Creon for her pancreas and has had other GI issues over the last few days. Diarrhea better over the last 2 days but pt admits she was eating and drinking poorly lately. Vitals/I&O's: Vital Signs Temp Pulse Resp BP Pulse Ox 98.0 F 50 L 18 160/60 H 98 03/05/20 14:41 03/05/20 15:00 03/05/20 14:41 03/05/20 14:41 03/05/20 14:41 Oxygen Delivery Method Room Air Weight: 59.874 kg Body Mass Index (BMI) 26.6 Intake and Output for Last 24 Hours 03/03/20 03/04/20 03/05/20 23:59 23:59 23:59 Intake Total 2208 / 2568 2280 / 2280 Balance 2208 / 2568 2280 / 2280 General: Alert, Oriented x3, Cooperative, No apparent distress, Well developed, Well nourished, - - Middle Aged WF sitting up in a chair, appears comfortable HEENT: Atraumatic, PERRLA, EOMI, Normocephalic, EAC Clear Oral: Moist Mucosa Neck: Supple, Trachea Midline Lungs: Clear to auscultation, Normal air movement, No rhonchi, No wheeze, No rales Cardiovascular: Regular rate, Regular Rhythm, Normal S1, Normal S2, No murmurs, No Ectopic Activity, No rub noted, No Gallop Abdomen: Bowel Sounds Present, Soft, Non Tender, Non-Distended, No hernias noted Extremities: No clubbing, No cyanosis, No edema, Capillary Refill Less than 3 Seconds, Peripheral Pulses Normal Skin: No rashes, No breakdown Musculoskeletal: No Tenderness to Palpation of Joints or Extremities, No Muscle Wasting, Arthritic Changes Neurological: Cranial nerves II-XII grossly intact, Neuro grossly intact Psych/Mental Status: Normal Affect, Appropriate, Alert and oriented to time, place, person, mood and affect Laboratory Results 03/04/20 15:25: Magnesium 0.9 L* 03/04/20 15:30: COVID-19 (JUAN) Not Detected 03/04/20 20:30: Lactic Acid 1.1 03/04/20 21:44: POC Glucose 125 H 03/05/20 05:08: WBC 9.7, RBC 3.40 L, Hgb 10.4 L, Hct 32.9 L, MCV 96.8, MCH 30.6, MCHC 31.6 L, RDW Std Deviation 48.4 H, RDW Coeff of Yaw 13.8, Plt Count 384, MPV 8.8, Immature Gran % (Auto) 0.300, Neut % (Auto) 57.2, Lymph % (Auto) 30.6, Maverick % (Auto) 7.1, Eos % (Auto) 4.1, Baso % (Auto) 0.7, Absolute Neuts (auto) 5.5, Absolute Lymphs (auto) 2.96, Nucleated RBC % 0 03/05/20 05:08: Sodium 138, Potassium 3.7, Chloride 107, Carbon Dioxide 26.0, Anion Gap 5, BUN 25 H, Creatinine 1.63 H, Estim Creat Clear Calc 33.39, Est GFR (MDRD) Af Amer 41 L, Est GFR (MDRD) Non-Af 34 L, BUN/Creatinine Ratio 15.3, Glucose 128 H, Calcium 7.4 L 03/05/20 05:08: Magnesium 2.4, TSH 1.38 03/05/20 06:50: POC Glucose 122 H 03/05/20 08:05: POC Glucose 142 H 03/05/20 11:36: POC Glucose 228 H 03/05/20 16:28: POC Glucose 178 H Current Medications Acetaminophen (Acetaminophen 325 Mg Tablet) 650 mg PO Q6H PRN PRN PRN Reason: Pain Score 1-10/Temp > 100.7 F Amlodipine Besylate (Amlodipine 10 Mg Tablet) 10 mg PO DAILY [facility] Atorvastatin Calcium (Atorvastatin Calcium 20 Mg Tablet) 20 mg PO QHS [facility] Divalproex Sodium (Divalproex Sodium 125 Mg Sprinkle) 125 mg PO BID [facility] Last Admin: 03/05/20 08:02 Dose: 125 mg Documented by: Gabapentin (Gabapentin 600 Mg Tablet) 600 mg PO TID [facility] Last Admin: 03/05/20 14:34 Dose: 600 mg Documented by: Heparin Sodium (Porcine) (Heparin Injection (Vial) 5,000 Unit/Ml Vial) 5,000 unit SC Q8 [facility] Last Admin: 03/05/20 14:35 Dose: 5,000 unit Documented by: Hydralazine HCl (Hydralazine 50 Mg Tablet) 50 mg PO TID [facility] Last Admin: 03/05/20 14:34 Dose: 50 mg Documented by: Hydroxyzine Pamoate (Hydroxyzine Buffy 25 Mg Capsule) 25 mg PO DAILY [facility] Last Admin: 03/05/20 08:07 Dose: Not Given Documented by: Sodium Chloride () 1,000 mls @ 100 mls/hr IV .Q10H [facility] Last Admin: 03/05/20 06:06 Dose: 100 mls/hr Documented by: Insulin Glargine (Insulin Glargine 100 Units/Ml Pen) 38 units SC DAILY [facility] Last Admin: 03/05/20 08:03 Dose: 38 u Documented by: Insulin Human Lispro (Insulin Lispro 100 Unit/Ml Insuln.Pen) 0 unit SC ACHS [facility]; Protocol Last Admin: 03/05/20 16:30 Dose: 1 u Documented by: Levothyroxine Sodium (Levothyroxine 112 Mcg Tablet) 112 mcg PO DAILY@0600 [facility] Last Admin: 03/05/20 06:06 Dose: 112 mcg Documented by: Ondansetron HCl (Ondansetron 4 Mg/2 Ml Vial) 4 mg IV Q8H PRN PRN PRN Reason: NAUSEA/VOMITING Pancrelipase (Creon 24,[address] Capsule) 2 capsule PO ACHS [facility] Last Admin: 03/05/20 16:30 Dose: 2 capsule Documented by: Pantoprazole Sodium (Pantoprazole Sodium 40 Mg Tablet) 40 mg PO DAILY [facility] Last Admin: 03/05/20 08:01 Dose: 40 mg Documented by: Senna/Docusate Sodium (Senna/Docusate Sodium 1 Tablet) 2 tablet PO BID PRN PRN PRN Reason: Constipation Sodium Chloride (0.9% Saline Lock 10 Ml Syringe) 10 - 40 ml IV UD PRN PRN Reason: SALINE FLUSH Trazodone HCl (Trazodone 100 Mg Tablet) 150 mg PO QHS [facility] Last Admin: 03/04/20 21:46 Dose: 150 mg Documented by: STROKE Vital Signs/Narrative: Vital Signs Temp Pulse Resp BP Pulse Ox 03/05/20 15:00 50 L 03/05/20 14:41 98.0 F 57 L 18 160/60 H 98 03/05/20 14:34 55 L 173/76 H Assessment/Plan I agree with with above and the following is a reflection of my independent history and physical exam ASSESSMENT Presyncope Hypomagnesemia Recent URI SALVATORE on ? CKD--> baseline unknown Chronic Pancreatitis Chronic Diarrhea Hypothyroidism DM-2 HTN Bradycardia-symptomatic Bipolar D/O PLAN -d/c BB and Diuretic for BP with chronic diarrhea and bradycardia -start amlodipine and hydralazine for BP (avoid ACEI/ARB with SALVATORE ? CKD) -TSH WNL -Mag better -repeat BMP in am -continue Hydration -if stable may be able to go home tomorrow but will need closer local f/u for her medical issues Inpatient E&M: [id number] Subs Hosp L2
[2020-03-05] MEDS: hydrALAZINE 50 MG Tablet PO ×2 (14:34→23:05)
--- NOTE | 2020-03-05 16:19 | CASEMGMT ---
Pt provided with lists of local in-network PCP, air hammer stripper, and blue print control clerk at this time. Demarco WASHBURN CM
[2020-03-05 16:51] LABS: Bedside Glucose 178 mg/dL (70-110)
[2020-03-05] MEDS: traZODone 100 MG Tablet 150 MG PO (23:03)
[2020-03-05] MEDS: Acetaminophen 325 MG Tablet 650 MG PO (23:04)
[2020-03-05] MEDS: Atorvastatin Calcium 20 MG Tablet PO (23:04)
[2020-03-05] MEDS: Senna/Docusate Sodium 1 Tablet 2 TABLET PO (23:04)
[2020-03-05 23:16] LABS: Bedside Glucose 247 mg/dL (70-110)
[2020-03-06] VITALS (27 sets, daily range): BP systolic 97–174; BP diastolic 47–93; PULSE 60–129; RESP 16–21; TEMP 36.6–37.1; O2SAT 92–98
[2020-03-06] MEDS: hydrALAZINE 50 MG Tablet PO (06:09)
[2020-03-06] MEDS: Heparin Injection (Vial) 5,000 UNIT/ML VIAL 5000 UNIT SC ×2 (06:09→21:17)
[2020-03-06] MEDS: Levothyroxine 112 MCG Tablet PO ×2 (06:10)
[2020-03-06] MEDS: Creon 24,000 unit DR Capsule 2 CAP PO ×2 (06:10→21:18)
[2020-03-06] MEDS: Gabapentin 600 MG Tablet PO ×3 (06:10→21:18)
[2020-03-06] MEDS: Nystatin Powder 15gm Bottle 1 APPLIC TOPICAL ×2 (06:13→21:17)
[2020-03-06 06:48] LABS: Anion Gap 6 (5-15); BUN 14 mg/dL (7-18); BUN/Creat Ratio 13.2 RATIO (10-20); Calcium,Total 8.3 mg/dL (8.5-10.1); Chloride 106 mmol/L (98-107); Creatinine, Serum 1.06 mg/dL (0.55-1.02); EST Glomerular Filtration Rate 56 mL/min (>60); Est Glom Filt Rate - Afr Amer 67 mL/min (>60); Estimated Creatinine Clearance 51.35 ml/min; Glucose 140 mg/dL (74-106); Potassium 3.2 mmol/L (3.5-5.1); Sodium Level 139 mmol/L (136-145)
[2020-03-06 07:00] LABS: Bedside Glucose 137 mg/dL (70-110)
[2020-03-06] MEDS: Acetaminophen 325 MG Tablet 650 MG PO ×3 (07:26→21:21)
--- NOTE | 2020-03-06 07:29 | EKG12_ITS ---
Test Reason : AM EKG Blood Pressure : / mmHG Vent. Rate : 048 BPM Atrial Rate : 048 BPM P-R Int : 184 ms QRS Dur : 100 ms QT Int : 502 ms P-R-T Axes : 053 -56 -67 degrees QTc Int : 448 ms Sinus bradycardia with Premature atrial complexes Left axis deviation ST & T wave abnormality, consider anterolateral ischemia Abnormal ECG When compared with ECG of 04-MAR-2020 15:28, MANUAL COMPARISON REQUIRED, DATA IS UNCONFIRMED Confirmed by SHAILA LOPEZ, YENI ([id number]), online editor AZAEL THORNE ([id number]) on 03/09/2020 9:03:31 A M Referred By: UBALDO Confirmed By:ALEXANDRA LINTON MD
[2020-03-06] MEDS: Senna/Docusate Sodium 1 Tablet 2 TABLET PO (08:15)
[2020-03-06] MEDS: Morphine 2 MG/ML Syringe IV ×2 (08:16→15:00)
[2020-03-06] MEDS: Ondansetron 4 MG/2 ML Vial IV (08:16)
[2020-03-06 08:48] LABS: Magnesium 1.1 mg/dL (1.6-2.6)
[2020-03-06] MEDS: Divalproex Sodium 125 MG SPRINKLE PO ×2 (10:23→21:18)
[2020-03-06 11:56] LABS: Bedside Glucose 121 mg/dL (70-110)
--- NOTE | 2020-03-06 13:26 | PN_ITS ---
<Justice Mason PA - Last Filed: 03/06/20 13:26> Patient Problems: Active and Suspected Problems Lactic acidosis (Acute) Hypomagnesemia (Acute) Acute kidney injury superimposed on chronic kidney disease (Acute) Symptomatic bradycardia (Acute) Reason for Visit: chest pain Subjective: This AM the patient complained of chest pain described to me as someone pinching her across the chest bilaterally. She said she was SOB while she felt this. It came on while at rest and resolved about 2 hours later. She has no fever/chills. No dizziness or LH today. She continues to have a nonproductive cough with rhinitis and post nasal drip. Vitals/I&O's: Vital Signs Temp Pulse Resp BP Pulse Ox 97.8 F 126 H 18 164/93 H 98 03/06/20 08:11 03/06/20 10:27 03/06/20 08:11 03/06/20 08:11 03/06/20 08:12 Oxygen Delivery Method Room Air Weight: 132 lb Body Mass Index (BMI) 26.6 Orthostatic Vital Signs Start: 03/05/20 18:08 Freq: q24h Status: Active Protocol: Activity Type Activity Date Activity User E-Sign Co-Sign Detail Recorded Client Recorded Date Recorded By Document 03/05/20 18:08 [id number] 03/05/20 18:12 03/05/20 18:08 Orthostatic Vitals Standing -Blood Pressure (90/60-120/80) 159/68 H -Extremity Use Left Arm -Pulse Rate (60-100) 64 Sitting -Blood Pressure (90/60-120/80) 151/79 H -Extremity Use Left Arm -Pulse Rate (60-100) 62 Lying -Blood Pressure (90/60-120/80) 157/73 H -Extremity Use Left Arm -Pulse Rate (60-100) 58 L Intake and Output for Last 24 Hours 03/04/20 03/05/20 03/06/20 23:59 23:59 23:59 Intake Total 2208 / 2568 3520 / 3640 320 / 320 Balance 2208 / 2568 3520 / 3640 320 / 320 General: Alert, Oriented x3, Cooperative HEENT: Atraumatic, PERRLA, EOMI, Normocephalic Neck: Supple, No JVD, Negative Carotid Bruits Lungs: Clear to auscultation, Normal air movement Cardiovascular: Regular rate, No murmurs Abdomen: Bowel Sounds Present, Soft, Non Tender Extremities: No edema, Capillary Refill Less than 3 Seconds Skin: No rashes, No breakdown Musculoskeletal: No Tenderness to Palpation of Joints or Extremities Neurological: Cranial nerves II-XII grossly intact Psych/Mental Status: Flat Affect, Alert and oriented to time, place, person, mood and affect Laboratory Results 03/05/20 16:28: POC Glucose 178 H 03/05/20 22:53: POC Glucose 247 H 03/06/20 05:30: Sodium 139, Potassium 3.2 L, Chloride 106, Carbon Dioxide 27.0, Anion Gap 6, BUN 14, Creatinine 1.06 H, Estim Creat Clear Calc 51.35, Est GFR (MDRD) Af Amer 67, Est GFR (MDRD) Non-Af 56 L, BUN/Creatinine Ratio 13.2, Glucose 140 H, Calcium 8.3 L 03/06/20 06:10: Magnesium 1.1 L 03/06/20 06:55: POC Glucose 137 H 03/06/20 08:10: Troponin I 0.047 H 03/06/20 10:55: Troponin I < 0.015 03/06/20 11:26: POC Glucose 121 H Current Medications Acetaminophen (Acetaminophen 325 Mg Tablet) 650 mg PO Q6H PRN PRN PRN Reason: Pain Score 1-10/Temp > 100.7 F Last Admin: 03/06/20 07:26 Dose: 650 mg Documented by: Amlodipine Besylate (Amlodipine 10 Mg Tablet) 10 mg PO DAILY [facility] Atorvastatin Calcium (Atorvastatin Calcium 20 Mg Tablet) 20 mg PO QHS [facility] Last Admin: 03/05/20 23:04 Dose: 20 mg Documented by: Divalproex Sodium (Divalproex Sodium 125 Mg Sprinkle) 125 mg PO BID [facility] Last Admin: 03/06/20 10:23 Dose: 125 mg Documented by: Gabapentin (Gabapentin 600 Mg Tablet) 600 mg PO TID [facility] Last Admin: 03/06/20 06:10 Dose: 600 mg Documented by: Heparin Sodium (Porcine) (Heparin Injection (Vial) 5,000 Unit/Ml Vial) 5,000 unit SC Q8 [facility] Last Admin: 03/06/20 06:09 Dose: 5,000 unit Documented by: Hydralazine HCl (Hydralazine 50 Mg Tablet) 100 mg PO TID [facility] Hydroxyzine Pamoate (Hydroxyzine Buffy 25 Mg Capsule) 25 mg PO DAILY [facility] Last Admin: 03/05/20 08:07 Dose: Not Given Documented by: Magnesium Sulfate 2 gm/ Sodium (Chloride) 104 mls @ 52 mls/hr IV X1 ONE Stop: 03/06/20 14:50 Insulin Glargine (Insulin Glargine 100 Units/Ml Pen) 38 units SC DAILY [facility] Last Admin: 03/06/20 09:11 Dose: Not Given Documented by: Insulin Human Lispro (Insulin Lispro 100 Unit/Ml Insuln.Pen) 0 unit SC ACHS [facility]; Protocol Last Admin: 03/06/20 11:47 Dose: Not Given Documented by: Levothyroxine Sodium (Levothyroxine 112 Mcg Tablet) 112 mcg PO DAILY@0600 [facility] Last Admin: 03/06/20 06:10 Dose: 112 mcg Documented by: Morphine Sulfate (Morphine 2 Mg/Ml Syringe) 2 mg IV Q3H PRN PRN PRN Reason: Pain Score 6-10 Last Admin: 03/06/20 08:16 Dose: 2 mg Documented by: Nitroglycerin (Nitroglycerin (Inpatient Use) 0.4 Mg Tab.Subl) 0.4 mg SUBLINGUAL Q5M PRN PRN Reason: CARDIAC/CHEST PAIN Nystatin (Nystatin Powder 15gm Bottle) 1 applic TOPICAL BID [facility]; Protocol Last Admin: 03/06/20 06:13 Dose: 1 applicatio Documented by: Ondansetron HCl (Ondansetron 4 Mg/2 Ml Vial) 4 mg IV Q8H PRN PRN PRN Reason: NAUSEA/VOMITING Last Admin: 03/06/20 08:16 Dose: 4 mg Documented by: Pancrelipase (Creon 24,[address] Capsule) 2 capsule PO [facility] Last Admin: 03/06/20 10:06 Dose: Not Given Documented by: Pantoprazole Sodium (Pantoprazole Sodium 40 Mg Tablet) 40 mg PO DAILY [facility] Last Admin: 03/05/20 08:01 Dose: 40 mg Documented by: Senna/Docusate Sodium (Senna/Docusate Sodium 1 Tablet) 2 tablet PO BID PRN PRN PRN Reason: Constipation Last Admin: 03/06/20 08:15 Dose: 2 tablet Documented by: Sodium Chloride (0.9% Saline Lock 10 Ml Syringe) 10 - 40 ml IV UD PRN PRN Reason: SALINE FLUSH Trazodone HCl (Trazodone 100 Mg Tablet) 150 mg PO QHS [facility] Last Admin: 03/05/20 23:03 Dose: 150 mg Documented by: STROKE Vital Signs/Narrative: Vital Signs Pulse 03/06/20 10:27 126 H Medical Necessity - Tobacco Use Smoking Status: Current every day smoker Tobacco Use: Cigarettes Assessment/Plan All Active Problems Lactic acidosis (Acute) Hypomagnesemia (Acute) Acute kidney injury superimposed on chronic kidney disease (Acute) Symptomatic bradycardia (Acute) 1. Dizziness/Presyncope 2/2 bradycardia - resolved off beta leo. Also had an orthostatic drop from sitting to standing as evidenced by diastolic decrease from 79 to 68. TSH normal. 2. Chest pain - no new EKG changes today, 2nd trop indeterminate, 3rd trop neg. Stress test pending. 3. Hypokalemia/hypomagnesemia - replete again, check phos. 3. SALVATORE 2/2 dehydration likely due to chronic diarrhea - resolved. 4. Recent URI - symptoms have been improving. Covid test negative. WBCs improved. no fever. Supportive care. 5. 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 Hypothyroidism - tsh normal, continue synthroid 7. Bipolar disorder - depakote, trazodone, vistaril 8. Chronic pancreatic insufficiency - creon, chronic diarrhea 9. HTN - off triemterene HCTZ, started norvasc, hydralazine DVT ppx: heparin DC planning: Recheck renal function in AM. Likely home no needs. This patient was seen by Justice Mason PA-C under the supervision of Dr. Marie <Daisha Marie - Last Filed: 03/06/20 13:48> Subjective: CP this am that was substernal and radiated to back, R shoulder, and up R neck. States that she is SOB and nauseated with it. Also feels hot and states taht she doesn't feel right. Vitals/I&O's: Vital Signs Temp Pulse Resp BP Pulse Ox 97.8 F 126 H 18 164/93 H 98 03/06/20 08:11 03/06/20 10:27 03/06/20 08:11 03/06/20 08:11 03/06/20 08:12 Oxygen Delivery Method Room Air Weight: 59.874 kg Body Mass Index (BMI) 26.6 Orthostatic Vital Signs Start: 03/05/20 18:08 Freq: q24h Status: Active Protocol: Activity Type Activity Date Activity User E-Sign Co-Sign Detail Recorded Client Recorded Date Recorded By Document 03/05/20 18:08 [id number] 03/05/20 18:12 03/05/20 18:08 Orthostatic Vitals Standing -Blood Pressure (90/60-120/80) 159/68 H -Extremity Use Left Arm -Pulse Rate (60-100) 64 Sitting -Blood Pressure (90/60-120/80) 151/79 H -Extremity Use Left Arm -Pulse Rate (60-100) 62 Lying -Blood Pressure (90/60-120/80) 157/73 H -Extremity Use Left Arm -Pulse Rate (60-100) 58 L Intake and Output for Last 24 Hours 03/04/20 03/05/20 03/06/20 23:59 23:59 23:59 Intake Total 2208 / 2568 3520 / 3640 320 / 320 Balance 2208 / 2568 3520 / 3640 320 / 320 General: Alert, Oriented x3, Cooperative, Well developed, Well nourished, - - appears as if she is uncomfortable but not toxic or ill appearing HEENT: Atraumatic, PERRLA, EOMI, Normocephalic Oral: Moist Mucosa, No Gingival or Mucosal Lesions/ Ulcerations Neck: Supple, No JVD, Trachea Midline, Thyroid Normal Size and Texture Lungs: Clear to auscultation, Normal air movement, No rhonchi, No wheeze, No rales Cardiovascular: Regular rate, Regular Rhythm, Normal S1, Normal S2, No murmurs, No Ectopic Activity, No rub noted, No Gallop Abdomen: Bowel Sounds Present, Soft, Non Tender, Non-Distended Extremities: No clubbing, No cyanosis, No edema, Capillary Refill Less than 3 Seconds, Peripheral Pulses Normal Skin: No rashes, No breakdown, - - R toe at MCP is warm to touch and tender-h/o gout Musculoskeletal: Tenderness - R toe Lymphatic: No Cervical, Supraclavicular, or Inguinal Adenopathy Neurological: Cranial nerves II-XII grossly intact, Neuro grossly intact Psych/Mental Status: Anxious, Flat Affect Laboratory Results 03/05/20 16:28: POC Glucose 178 H 03/05/20 22:53: POC Glucose 247 H 03/06/20 05:30: Sodium 139, Potassium 3.2 L, Chloride 106, Carbon Dioxide 27.0, Anion Gap 6, BUN 14, Creatinine 1.06 H, Estim Creat Clear Calc 51.35, Est GFR (MDRD) Af Amer 67, Est GFR (MDRD) Non-Af 56 L, BUN/Creatinine Ratio 13.2, Glucose 140 H, Calcium 8.3 L 03/06/20 06:10: Magnesium 1.1 L 03/06/20 06:55: POC Glucose 137 H 03/06/20 08:10: Troponin I 0.047 H 03/06/20 10:55: Troponin I < 0.015 03/06/20 11:26: POC Glucose 121 H Current Medications Acetaminophen (Acetaminophen 325 Mg Tablet) 650 mg PO Q6H PRN PRN PRN Reason: Pain Score 1-10/Temp > 100.7 F Last Admin: 03/06/20 07:26 Dose: 650 mg Documented by: Amlodipine Besylate (Amlodipine 10 Mg Tablet) 10 mg PO DAILY [facility] Atorvastatin Calcium (Atorvastatin Calcium 20 Mg Tablet) 20 mg PO QHS [facility] Last Admin: 03/05/20 23:04 Dose: 20 mg Documented by: Divalproex Sodium (Divalproex Sodium 125 Mg Sprinkle) 125 mg PO BID [facility] Last Admin: 03/06/20 10:23 Dose: 125 mg Documented by: Fluticasone Propionate (Fluticasone 0.05% 1 Aromas Nasal.Sry) 2 spray NASAL DAILY [facility] Gabapentin (Gabapentin 600 Mg Tablet) 600 mg PO TID [facility] Last Admin: 03/06/20 06:10 Dose: 600 mg Documented by: Guaifenesin (Guaifenesin Dm 10 Ml Udc) 5 ml PO Q6H PRN PRN PRN Reason: COUGH Heparin Sodium (Porcine) (Heparin Injection (Vial) 5,000 Unit/Ml Vial) 5,000 unit SC Q8 [facility] Last Admin: 03/06/20 06:09 Dose: 5,000 unit Documented by: Hydralazine HCl (Hydralazine 50 Mg Tablet) 100 mg PO TID [facility] Hydroxyzine Pamoate (Hydroxyzine Buffy 25 Mg Capsule) 25 mg PO DAILY [facility] Last Admin: 03/05/20 08:07 Dose: Not Given Documented by: Magnesium Sulfate 2 gm/ Sodium (Chloride) 104 mls @ 52 mls/hr IV X1 ONE Stop: 03/06/20 14:50 Insulin Glargine (Insulin Glargine 100 Units/Ml Pen) 38 units SC DAILY [facility] Last Admin: 03/06/20 09:11 Dose: Not Given Documented by: Insulin Human Lispro (Insulin Lispro 100 Unit/Ml Insuln.Pen) 0 unit SC ACHS [facility]; Protocol Last Admin: 03/06/20 11:47 Dose: Not Given Documented by: Levothyroxine Sodium (Levothyroxine 112 Mcg Tablet) 112 mcg PO DAILY@0600 [facility] Last Admin: 03/06/20 06:10 Dose: 112 mcg Documented by: Morphine Sulfate (Morphine 2 Mg/Ml Syringe) 2 mg IV Q3H PRN PRN PRN Reason: Pain Score 6-10 Last Admin: 03/06/20 08:16 Dose: 2 mg Documented by: Nitroglycerin (Nitroglycerin (Inpatient Use) 0.4 Mg Tab.Subl) 0.4 mg SUBLINGUAL Q5M PRN PRN Reason: CARDIAC/CHEST PAIN Nystatin (Nystatin Powder 15gm Bottle) 1 applic TOPICAL BID [facility]; Protocol Last Admin: 03/06/20 06:13 Dose: 1 applicatio Documented by: Ondansetron HCl (Ondansetron 4 Mg/2 Ml Vial) 4 mg IV Q8H PRN PRN PRN Reason: NAUSEA/VOMITING Last Admin: 03/06/20 08:16 Dose: 4 mg Documented by: Pancrelipase (Creon 24,[address] Capsule) 2 capsule PO ACHS [facility] Last Admin: 03/06/20 10:06 Dose: Not Given Documented by: Pantoprazole Sodium (Pantoprazole Sodium 40 Mg Tablet) 40 mg PO DAILY [facility] Last Admin: 03/05/20 08:01 Dose: 40 mg Documented by: Senna/Docusate Sodium (Senna/Docusate Sodium 1 Tablet) 2 tablet PO BID PRN PRN PRN Reason: Constipation Last Admin: 03/06/20 08:15 Dose: 2 tablet Documented by: Sodium Chloride (0.9% Saline Lock 10 Ml Syringe) 10 - 40 ml IV UD PRN PRN Reason: SALINE FLUSH Trazodone HCl (Trazodone 100 Mg Tablet) 150 mg PO QHS [facility] Last Admin: 03/05/20 23:03 Dose: 150 mg Documented by: STROKE Vital Signs/Narrative: Vital Signs Pulse 03/06/20 10:27 126 H Assessment/Plan I agree with with above and the following is a reflection of my independent history and physical exam ASSESSMENT Presyncope Chest Pain Hypokalemia Hypomagnesemia Recent URI SALVATORE on ? CKD--> baseline unknown Chronic Pancreatitis Chronic Diarrhea Hypothyroidism DM-2 HTN Bradycardia-symptomatic Bipolar D/O gout PLAN -Bradycardia has resolved -CP this am -trops cycled and the initial was WNL--> repeat pending -EKG with no s/o acute ischemia -Stress test today -NPO for now -K replaced -Mag Replaced -BMP and Mag level in am -sCr much improved -no diarrhea and po intake was good -increase Hydralazine to 100 TID as BP is still elevated -bradycardia is resolved -gout has flared up -will give prednisone burst for this -D/C tomorrow if stress test neg and lab remains stable Inpatient E&M: 59295 Subs Hosp L3
[2020-03-06] MEDS: Pantoprazole Sodium 40 MG Tablet PO (13:52)
[2020-03-06] MEDS: hydrALAZINE 50 MG Tablet 100 MG PO (13:52)
[2020-03-06] MEDS: amLODIPine 10 MG Tablet PO (13:52)
[2020-03-06] MEDS: hydrOXYzine PAM 25 MG Capsule PO (13:52)
--- NOTE | 2020-03-06 13:53 | STRESSREP ---
Stress Test Report Date: 03-06-2020 Procedure: Pharmacologic stress nuclear imaging study Indications: Chest pain Consent: Per the patient Procedure: The patient underwent pharmacologic (Regadenoson) evaluation with a peak heart rate of 151 beats per minute (96%predicted maximal heart rate) and a peak blood pressure of 180/60 mmHg. The baseline ECG demonstrated normal sinus rhythm; nonspecific T wave abnormality. The peak pharmacologic ECG demonstrated diffuse nonspecific T wave abnormality with the recovery ECG demonstrating the appearance of sinus tachycardia with the appearance of approximately 1 mm of horizontal to downsloping ST segment depression in leads I, aVL, and V2 and the appearance of approximately [address] segment elevation in lead aVR with gradual improvement towards baseline later in recovery. There was an occasional PAC/PVC preinfusion and an occasional PAC/PVC in recovery. Patient noted chest discomfort/squeezing during recovery was spontaneous resolution. The examination was discontinued secondary to completion of protocol. Impression: 1. Pharmacologic (Regadenoson) evaluation 2. Peak pharmacologic ECG with diffuse nonspecific T wave abnormality with the recovery ECG demonstrating the appearance of sinus tachycardia with the appearance of approximately 1 mm of horizontal to downsloping ST segment depression in leads I, aVL, and V2 and the appearance of approximately [address] segment elevation in lead aVR with gradual improvement towards baseline later in recovery. 3. There was an occasional PAC/PVC preinfusion and an occasional PAC/PVC in recovery. 4. Nuclear images pending Myocardial perfusion imaging study: Technique: The patient was injected with 12.0 millicuries of technetium 99m Cardiolite and subsequently rest SPECT Cardiolite nuclear imaging was obtained in the horizontal long, vertical long, and short axis views. The patient underwent pharmacologic (Regadenoson) evaluation with a peak heart rate of 151 beats per minute (96% percent predicted maximal heart rate) and a peak blood pressure of 180/60 mmHg. The patient was injected with 35.0 millicuries of technetium 99m Cardiolite and subsequently stress SPECT Cardiolite nuclear imaging was obtained in the horizontal long, vertical long, and short axis views. A gated Cardiolite study at peak stress was obtained. Interpretation: Rest and stress SPECT Cardiolite nuclear imaging status post realignment, normalization, and attenuation correction demonstrate relative uniform tracer uptake and myocardial perfusion appearing within normal limits. There is end systolic thickening and brightening. The gated Cardiolite study demonstrates myocardial thickening and inward wall motion. The reported LVEF is 73%. Impression: 1. Rest and stress SPECT Cardiolite nuclear imaging demonstrate relative uniform tracer uptake and myocardial perfusion appearing within normal limits. 2. The gated Cardiolite study reports an LVEF of 73%. This note was generated with [employer] software. It may contain incorrect words, spelling, and punctuation that were not noted in checking the note before signing.
[2020-03-06 14:01] LABS: Phosphorus 1.9 mg/dL (2.5-4.9)
[2020-03-06] MEDS: 0.9% Normal Saline 1,000 ML 999 ML IV (15:00)
[2020-03-06] MEDS: 0.9% Normal Saline 1,000 ML 75 ML IV (15:06)
[2020-03-06] MEDS: Aspirin 325 MG Tablet PO (15:23)
--- NOTE | 2020-03-06 15:29 | NURSING ---
This RN called report to [facility]ley at clinical lab specialist.
--- NOTE | 2020-03-06 15:32 | PCM.CONS.C ---
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 She has been undergoing noninvasive evaluation. This included a COVID-19 test which was reported as negative. She was being prepared for release home today when she complained of chest discomfort which she described as a squeezing sensation or a pressure sensation. She had cardiac enzymes performed of which #2 was in the indeterminate range. She was requested to undergo a pharmacologic stress nuclear imaging study. This demonstrated an abnormal recovery ECG with a myocardial perfusion study which appeared to be unremarkable (please see below). She was noted the conclusion of the study to have sinus tachycardia and appears somewhat hypertensive which was thought to be related to holding of her beta-leo therapy because of concerns of bradycardia . After returning to PCU she was treated for her hypertension with amlodipine and hydralazine. She then became hypotensive and has required IV fluids to support her blood pressure. She continued to complain of her chest discomfort and left upper extremity discomfort. She states at home she was not having classic orthopnea or PND and was not noticing peripheral pitting edema. She states that she did not lose consciousness. Cardiology was requested to evaluate the patient based upon her ongoing symptoms and stress test findings for consideration for diagnostic cardiac catheterization. Past Medical History Allergies/Adverse Reactions: Allergies duloxetine [From Cymbalta] Allergy (Verified 03/04/20 15:08) Itching tomato Allergy (Verified 03/04/20 15:08) Itching Home Medications: Ambulatory Orders Medication Instructions Recorded Allopurinol 100 mg PO QHS 03/04/20 Atorvastatin Calcium [Lipitor] 20 mg PO DAILY 03/04/20 Divalproex Sodium 125 mg PO BID 03/04/20 Gabapentin [Neurontin] 600 mg PO TID 03/04/20 Hydrocodone/Acetaminophen 1 - 2 tab PO Q4H PRN PRN 03/04/20 [Hydrocodone-Acetamin 5-325 mg] Hydroxyzine HCl 25 mg PO DAILY 03/04/20 Insulin Glargine [Lantus SoloStar 40 units SQ QHS 03/04/20 Pen] Levothyroxine [Synthroid] 112 mcg PO DAILY 03/04/20 Lipase/Protease/Amylase [Creon Dr 2 cap PO BIDCM 03/04/20 24,000 Units Capsule] Metoprolol Tartrate 50 mg PO BID 03/04/20 Pantoprazole Sodium [Protonix] 40 mg PO DAILY 03/04/20 Trazodone HCl 150 mg PO QHS 03/04/20 Triamterene 37.5MG/Hctz 25MG 1 tab PO DAILY 03/04/20 [Maxzide 37.5 mg-25 mg Tablet] Past Medical History (Chronic Problems): Chronic Problems Hyperlipidemia (Chronic) Type 2 diabetes mellitus (Chronic) Hypothyroidism (Chronic) Hypertension (Chronic) Bipolar disorder (Chronic) Chronic pancreatic insufficiency (Chronic) Depression (Chronic) Surgical History: appendectomy, cholecystectomy, hysterectomy, - - Carpal tunnel surgery. 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 Denies: Orthopnea, PND, Peripheral Edema, Palpitations, Syncope Respiratory: Reports: Cough, Shortness of Breath. Denies: Sputum Production, Hemoptysis Gastrointestinal: Reports: Diarrhea. Denies: Hematemesis, Hematochezia, Melena Genitourinary: Denies: Dysuria, Hematuria Skin: Denies: Rash Subjectve: This is a 64-year-old white female who appears to be supine in bed at this time receiving IV fluids. Objective: Vital Signs Temp Pulse Resp BP Pulse Ox 97.8 F 126 H 18 103/70 96 03/06/20 15:30 03/06/20 15:30 03/06/20 15:30 03/06/20 15:30 03/06/20 15:30 Oxygen Flow Rate (L/min) 2 Oxygen Delivery Method Nasal Cannula Weight: 132 lb Body Mass Index (BMI) 26.6 Orthostatic Vital Signs Start: 03/05/20 18:08 Freq: q24h Status: Active Protocol: Activity Type Activity Date Activity User E-Sign Co-Sign Detail Recorded Client Recorded Date Recorded By Document 03/05/20 18:08 [id number] 03/05/20 18:12 03/05/20 18:08 Orthostatic Vitals Standing -Blood Pressure (90/60-120/80) 159/68 H -Extremity Use Left Arm -Pulse Rate (60-100) 64 Sitting -Blood Pressure (90/60-120/80) 151/79 H -Extremity Use Left Arm -Pulse Rate (60-100) 62 Lying -Blood Pressure (90/60-120/80) 157/73 H -Extremity Use Left Arm -Pulse Rate (60-100) 58 L Intake and Output for Last 24 Hours 03/04/20 03/05/20 03/06/20 23:59 23:59 23:59 Intake Total 2208 / 2568 3520 / 3640 320 / 320 Balance 2208 / 2568 3520 / 3640 320 / 320 General: Awake, Alert, Oriented x 3, Cooperative, Ill Appearing HEENT: Atraumatic, Normocephalic, PERRL, EOMI, Sclera Non Icteric Neck: Supple, Good ROM, No JVD Lungs: Clear to auscultation Cardiovascular: Regular Rhythm, Normal S1, Normal S2 Abdomen: Bowel Sounds Present, Soft, Non Tender Extremities: No edema Neurological: No Focal Motor or Sensory Deficit Psych/Mental Status: Appropriate 03/06/20 05:30: Sodium 139, Potassium 3.2 L, Chloride 106, Carbon Dioxide 27.0, Anion Gap 6, BUN 14, Creatinine 1.06 H, Est GFR (MDRD) Af Amer 67, Est GFR (MDRD) Non-Af 56 L, BUN/Creatinine Ratio 13.2, Glucose 140 H, Calcium 8.3 L 03/06/20 06:10: Magnesium 1.1 L 03/06/20 08:10: Troponin I 0.047 H 03/06/20 08:10: Phosphorus 1.9 L 03/06/20 10:55: Troponin I < 0.015 Rhythm: Sinus tachycardia EKG: Limb lead misplacement: Probable sinus tachycardia Stress Test: Stress Test Report Date: 03-06-2020 Procedure: Pharmacologic stress nuclear imaging study Indications: Chest pain Consent: Per the patient Procedure: The patient underwent pharmacologic (Regadenoson) evaluation with a peak heart rate of 151 beats per minute (96%predicted maximal heart rate) and a peak blood pressure of 180/60 mmHg. The baseline ECG demonstrated normal sinus rhythm; nonspecific T wave abnormality. The peak pharmacologic ECG demonstrated diffuse nonspecific T wave abnormality with the recovery ECG demonstrating the appearance of sinus tachycardia with the appearance of approximately 1 mm of horizontal to downsloping ST segment depression in leads I, aVL, and V2 and the appearance of approximately [address] segment elevation in lead aVR with gradual improvement towards baseline later in recovery. There was an occasional PAC/PVC preinfusion and an occasional PAC/PVC in recovery. Patient noted chest discomfort/squeezing during recovery was spontaneous resolution. The examination was discontinued secondary to completion of protocol. Impression: 1. Pharmacologic (Regadenoson) evaluation 2. Peak pharmacologic ECG with diffuse nonspecific T wave abnormality with the recovery ECG demonstrating the appearance of sinus tachycardia with the appearance of approximately 1 mm of horizontal to downsloping ST segment depression in leads I, aVL, and V2 and the appearance of approximately [address] segment elevation in lead aVR with gradual improvement towards baseline later in recovery. 3. There was an occasional PAC/PVC preinfusion and an occasional PAC/PVC in recovery. 4. Nuclear images pending Myocardial perfusion imaging study: Technique: The patient was injected with 12.0 millicuries of technetium 99m Cardiolite and subsequently rest SPECT Cardiolite nuclear imaging was obtained in the horizontal long, vertical long, and short axis views. The patient underwent pharmacologic (Regadenoson) evaluation with a peak heart rate of 151 beats per minute (96% percent predicted maximal heart rate) and a peak blood pressure of 180/60 mmHg. The patient was injected with 35.0 millicuries of technetium 99m Cardiolite and subsequently stress SPECT Cardiolite nuclear imaging was obtained in the horizontal long, vertical long, and short axis views. A gated Cardiolite study at peak stress was obtained. Interpretation: Rest and stress SPECT Cardiolite nuclear imaging status post realignment, normalization, and attenuation correction demonstrate relative uniform tracer uptake and myocardial perfusion appearing within normal limits. There is end systolic thickening and brightening. The gated Cardiolite study demonstrates myocardial thickening and inward wall motion. The reported LVEF is 73%. Impression: 1. Rest and stress SPECT Cardiolite nuclear imaging demonstrate relative uniform tracer uptake and myocardial perfusion appearing within normal limits. 2. The gated Cardiolite study reports an LVEF of 73%. CXR: Preliminary evaluation: No acute cardiopulmonary disease process appreciated: Please see official report Assessment/Plan 1. Hypotension The patient is hypotensive. This may be secondary to administration of her antihypertensive therapy. She has been receiving IV fluids. She appears to be responding as her systolic blood pressure is increasing. 2. Abnormal stress test The patient does have an abnormal stress test and such that her recovery ECG appears to be abnormal and concerning for CAD and myocardial ischemia, etc., despite her myocardial perfusion study appearing unremarkable. Thus this appears to be a mixed stress test. Based upon her symptoms and concerns and other objective findings it was felt reasonable that she be evaluated in the cardiac catheterization laboratory for the possibility of underlying CAD. The procedure and risks have been discussed with her and she has been agreeable to this. 3. Hyperlipidemia She will continue risk factor evaluation medical therapy is deemed appropriate. 4. Hypertension She apparently has been hypertensive and on hypertensive medical therapy at home. Status post additional antihypertensive therapy following her stress test she became hypotensive. She has been receiving IV fluids. Her blood pressures have improved. 5. Diabetes mellitus She will continue valuation care per internal medicine. 6. Chronic pancreatic insufficiency with chronic diarrhea This apparently has been a longstanding problem for her. This can lead to her electrolyte abnormalities. Her electrolytes are being replaced. 7. Hypothyroidism She will continue medical management as deemed appropriate. 8. Dehydration She apparently was dehydrated when she came to the hospital. She has been receiving fluids and electrolyte replacement. Comment: The patient's case has been discussed and reviewed with the patient as well as with Dr. Marie. This note was generated using a voice recognition system and there may be incorrect words, spelling or punctuation that were not noted when reviewing the office note prior to saving.
--- NOTE | 2020-03-06 15:35 | CASEMGMT ---
According to the [facility] website, the following are in-network tertiary facilities: [facility], [place], [facility], [facility], [facility], [place], [facility], and . Demarco WASHBURN CM
[2020-03-06 15:36] LABS: Bedside Glucose 179 mg/dL (70-110)
[2020-03-06] MEDS: 0.9% Normal Saline 1,000 ML 100 ML IV (17:26)
[2020-03-06] MEDS: Na Biphos/Potassium Phosphate PACKET 1 PACKET PO (17:26)
[2020-03-06] MEDS: Insulin Lispro 100 UNIT/ML INSULN.PEN SC ×2 (17:28→21:17)
--- NOTE | 2020-03-06 17:34 | CL.D_ITS ---
Patient Name: ASIF CASTRO Study Date: 03/06/2020 Performing: Dani Farley MD Ht: 59 inches 150 cm : 1955 Wt: 132.5 lbs 60 kg Age: 64 Gender: female BSA: 1.55 PROCEDURE(S) PERFORMED [id number] CLINICAL PROFILE AND INDICATIONS Indications: Suspected CAD Heart Failure: None Stress/Imaging Date: 03/06/2020 Angina Classification Anginal Classification w/in 2 Weeks: CCS III CAD Presentations: Unstable angina. CONCLUSIONS Elevated Left Ventricular End Diastolic Pressure Normal LV size, wall motion,and systolic function LVEF: by LV gram 75 % [place] Multivessel CAD RECOMMENDATIONS Risk factor modification Medical therapy Staged percutaneous intervention Case discussed / reviewed with Dr. Beaver and Dr. Fox of Interventional Cardiology DESCRIPTION OF PROCEDURE The patient arrived to the procedure lab. The risks and benefits of the procedure as well as a full d escription of our services here and current unavailability of surgical backup were fully explained to the patient and/or their significant other prior to the catheterization. The Timeout was completed, verifying the correct patient and procedure. The patient's procedural site was prepped and draped in the usual fashion. Local anesthetic was given subcutaneously to right radial region with Lidocaine 2% . Using a modified Seldinger technique, arterial access was obtained via the right radial artery, a 6 Fr sheath was inserted. Left Coronary Artery selective angiography was performed in multiple views u sing a 5 Fr. 4.0 [place] catheter. Right Coronary Artery selective angiography was then performed in mu ltiple views using a 5 Fr. 4.0 [place] catheter. Left Coronary Artery selective angiography was perform ed in multiple views using a 5 Fr. JL 5 catheter. Right Coronary Artery selective angiography was then performed in multiple views using a 5 Fr. JR 4 catheter. Left Ventriculography w as performed in LONGO projection using a 5 Fr. Pigtail catheter. LV to AO pullback pressures were then recorded.The arterial sheath was pulled and a TR Band was applied for hemostasis CORONARY ANGIOGRAPHY DOMINANCE: Right Dominant LEFT HEART ASSESSMENT Left Ventricular Ejection Fraction: by LV Gram 75 % Normal LV wall motion Elevated Left Ventricular End Diastolic Pressure LVEDP: 16 mmHg LEFT MAIN: proximal: smooth: 25 % Stenosis LEFT ANTERIOR DESCENDING ARTERY: MID LAD: long: diffuse: 75 % Stenosis CIRCUMFLEX ARTERY: Mild luminal irregularities MID CIRC: 50 % Stenosis RIGHT CORONARY ARTERY: PROX RCA: Mild calcification, 50 - 75 % Stenosis DISTAL RCA: Mild luminal irregularities RT PDA: Ostial - 75 % Stenosis COMPLICATIONS No Complications PROCEDURE MEDICATIONS Oxygen: 2 L/min via nasal cannula Heparin diluted in 23cc Heparinized saline. Patient given 10cc IA of this solution. 03/06/2020 16:05 :41 Verapamil 2.5mg, Ntg 100mcgs, 2000 units of Heparin diluted in 23cc Heparinized saline. Patient give n 10cc IA of this solution. 03/06/2020 16:05:41 SUMMARY OF HEMODYNAMIC DATA Time AIR REST ECG 15:52:32 ECG 15:59:57 AO 111/58 (80) SA 16:12:10 LV 170/-14, 19 16:30:56 LV 148/-13, 7 16:31:03 LV 163/-17, 16 16:31:52 LV 167/-17, 14 16:31:59 LVp 165/-19, 12 16:32:03 AOp 143/54 (83) 16:32:08 Signed By Dani Farley MD On 03/06/2020 17:33:37 Dani Farley MD
--- NOTE | 2020-03-06 17:34 | ECHOCS_ITS ---
Reason For Study: Chest Pain Procedure This was a 2D Doppler, Color Flow transthoracic echocardiogram. The study was technically difficult. Contrast injection was performed. Exam performed portable in patient room. Left Ventricle Normal LV size. Concentric left ventricular hypertrophy. Left ventricular systolic function is normal. The estimated ejection fraction is 65 %. Normal diastology for age. No regional wall motion abnormalities noted. Right Ventricle Normal right ventricle. Normal systolic function. Atria Normal left atrium. Normal right atrium. Mitral Valve Mild mitral annular calcification. No mitral valve insufficiency. Tricuspid Valve Unable to estimate RV systolic pressure due to insufficient tricuspid regurgitant envelope. Mild tricuspid valve insufficiency. Aortic Valve Presence of subvalvular membrane, mild gradient across the LVOT. Mean aortic valve gradient 16.2 mmHg. Pulmonic Valve No eccentric pulmonic valve insufficiency. Great Vessels Normal inferior vena cava. Pericardium/Pleural No pericardial effusion. Medication Diluted definity 3ml given slow IV push to enhance endocardial definition. MMode/2D Measurements & Calculations LVIDd: 4.7 cm IVSd: 1.3 cm LVOT diam: 2.0 cm LVIDs: 2.6 cm LVPWd: 1.5 cm RVDd: 3.0 cm FS: 44.6 % LVOT area: 3.0 cm2 Ao root diam: 3.0 cm LAV(MOD-bp): 38.0 ml LVAd ap4: 30.9 cm2 ACS: 1.9 cm LAV(MOD-bp) Indexed: 24.6 ml/m2 EDV(MOD-sp4): 104.2 ml LAV(MOD-sp2): 43.1 ml EDV(sp4-el): 104.5 ml LAV(MOD-sp4): 32.0 ml LVAs ap4: 10.8 cm2 ESV(MOD-sp4): 19.2 ml ESV(sp4-el): 19.3 ml EF(MOD-sp4): 81.5 % EF(sp4-el): 81.5 % SV(MOD-sp4): 85.0 ml SV(sp4-el): 85.2 ml LA A4 area: 13.6 cm2 RA A4 area: 12.4 cm2 Time Measurements MV dec time: 0.18 sec Doppler Measurements & Calculations MV E max ralf: 100.4 cm/sec Lat Peak E' Ralf: 8.6 cm/sec Med Peak E' Ralf: 7.2 cm/sec MV A max ralf: 115.9 cm/sec E/E' lat: 11.7 E/E' med: 13.9 MV E/A: 0.87 MV V2 max: 126.7 cm/sec MV P1/2t max ralf: 127.3 cm/sec Ao V2 max: 299.9 cm/sec MV max P.4 mmHg MV P1/2t: 72.5 msec Ao max P.0 mmHg MV V2 mean: 66.0 cm/sec MV dec slope: 514.0 cm/sec2 Ao V2 mean: 178.9 cm/sec MV mean P.1 mmHg MVA(P1/2t): 3.0 cm2 Ao mean P.2 mmHg MV V2 VTI: 39.9 cm Ao V2 VTI: 48.9 cm MVA(VTI): 2.6 cm2 LUCIAN(I,D): 2.1 cm2 LUCIAN(V,D): 1.5 cm2 LV V1 max: 148.9 cm/sec SV(LVOT): 103.7 ml PA V2 max: 116.5 cm/sec LV V1 max P.9 mmHg LV V1 mean P.4 mmHg LV V1 mean: 107.4 cm/sec LV V1 VTI: 34.3 cm Interpretation Summary Normal LV size. Concentric left ventricular hypertrophy. Left ventricular systolic function is normal. The estimated ejection fraction is 65 %. Normal diastology for age. No regional wall motion abnormalities noted. Presence of subvalvular membrane, mild gradient across the LVOT Mean aortic valve gradient 16.2 mmHg. Unable to estimate RV systolic pressure due to insufficient tricuspid regurgitant envelope. Mild tricuspid valve insufficiency. Ordering Physician: Dani Farley Referring Physician: Yamila Tompkins Performed By: Tru Garrett RCS
[2020-03-06 17:41] LABS: Bedside Glucose 173 mg/dL (70-110)
[2020-03-06] MEDS: Clopidogrel Bisulfate 300 MG Tablet PO (17:43)
[2020-03-06] MEDS: Digoxin 250 MCG/ML Ampul 500 MCG IV (17:43)
[2020-03-06] MEDS: Atorvastatin Calcium 20 MG Tablet PO (21:18)
[2020-03-06] MEDS: traZODone 100 MG Tablet 150 MG PO (21:18)
[2020-03-06] MEDS: Metoprolol Tartrate 25 MG Tablet 12.5 MG PO (21:19)
[2020-03-06 21:52] LABS: Bedside Glucose 224 mg/dL (70-110)
[2020-03-07] VITALS (9 sets, daily range): BP systolic 121–152; BP diastolic 48–80; PULSE 58–74; RESP 18; TEMP 36.7–37.8; O2SAT 92–96
--- NOTE | 2020-03-07 05:55 | EKG12_ITS ---
Test Reason : AM EKG Blood Pressure : / mmHG Vent. Rate : 069 BPM Atrial Rate : 069 BPM P-R Int : 138 ms QRS Dur : 080 ms QT Int : 392 ms P-R-T Axes : 057 -65 -64 degrees QTc Int : 420 ms Normal sinus rhythm Left axis deviation ST & T wave abnormality, consider anterior ischemia Abnormal ECG When compared with ECG of 06-MAR-2020 15:02, MANUAL COMPARISON REQUIRED, DATA IS UNCONFIRMED Confirmed by SHAILA LOPEZ, YENI ([id number]), business editor AZAEL THORNE ([id number]) on 03/19/2020 9:44:29 A M Referred By: DR SARAH Confirmed By:ALEXANDRA LINTON MD
[2020-03-07 06:14] LABS: Absolute Lymphocyte Count 2.39 X10^3/uL (0.83-4.51); Absolute Neutrophil Count 5.8 X10^3/uL (2.0-7.7); Basophil# 0.05 X10^3/uL; Basophil% 0.5 % (0-1); Eosinophil# 0.22 X10^3/uL; Eosinophils% 2.4 % (0-5); Hematocrit 30.8 % (37-47); Hemoglobin 9.6 g/dL (12.0-15.0); Lymphocyte # 2.39 X10^3/ul (4.0); Mean Corp Hgb Conc 31.2 g/dL (32-36); Mean Corpuscular Hgb 30.3 pg (27.0-32.0); Mean Corpuscular Volume 97.2 fL (81-99); Mean Platelet Vol. 9.3 fl (6.2-12.0); Monocyte% 7.6 % (0-10); NRBC Flagged by Analyzer 0 % (0-5); Neutrophil # 5.79 X10^3/uL (2.7-7.7); Neutrophil % 63.2 % (47-70); Platelet Count 359 K/mm3 (150-450); RBC Distribution Width CV 13.9 % (11.6-14.6); RBC Distribution Width SD 49.6 fl (35.1-43.9); Red Blood Count 3.17 M/mm3 (4.2-5.4); White Blood Count 9.2 K/mm3 (4.4-11.0)
[2020-03-07 06:41] LABS: Anion Gap 6 (5-15); BUN 10 mg/dL (7-18); BUN/Creat Ratio 8.7 RATIO (10-20); Calcium,Total 7.8 mg/dL (8.5-10.1); Chloride 105 mmol/L (98-107); Creatinine, Serum 1.15 mg/dL (0.55-1.02); EST Glomerular Filtration Rate 51 mL/min (>60); Est Glom Filt Rate - Afr Amer 61 mL/min (>60); Estimated Creatinine Clearance 47.33 ml/min; Glucose 115 mg/dL (74-106); Magnesium 1.4 mg/dL (1.6-2.6); Potassium 4.7 mmol/L (3.5-5.1); Sodium Level 138 mmol/L (136-145)
[2020-03-07] MEDS: Creon 24,000 unit DR Capsule 2 CAP PO ×4 (06:46→21:41)
[2020-03-07] MEDS: Heparin Injection (Vial) 5,000 UNIT/ML VIAL 5000 UNIT SC ×3 (06:46→21:42)
[2020-03-07] MEDS: Gabapentin 600 MG Tablet PO ×3 (06:46→21:41)
[2020-03-07] MEDS: Na Biphos/Potassium Phosphate PACKET 1 PACKET PO ×2 (07:35→11:15)
[2020-03-07] MEDS: predniSONE 20 MG Tablet 40 MG PO (07:35)
[2020-03-07] MEDS: Acetaminophen 325 MG Tablet 650 MG PO (07:38)
[2020-03-07] MEDS: 0.9% Normal Saline 1,000 ML 75 ML IV ×2 (09:39→21:52)
[2020-03-07] MEDS: Nystatin Powder 15gm Bottle 1 APPLIC TOPICAL ×2 (09:39→21:44)
[2020-03-07] MEDS: Divalproex Sodium 125 MG SPRINKLE PO ×2 (09:44→21:42)
[2020-03-07] MEDS: Metoprolol Tartrate 25 MG Tablet 12.5 MG PO ×2 (09:44→21:41)
[2020-03-07] MEDS: Pantoprazole Sodium 40 MG Tablet PO (09:44)
[2020-03-07] MEDS: hydrOXYzine PAM 25 MG Capsule PO (09:44)
[2020-03-07] MEDS: Fluticasone 0.05% 1 SPRAY NASAL.SRY 2 SPRAY NASAL (09:49)
[2020-03-07 10:11] LABS: Bedside Glucose 111 mg/dL (70-110)
[2020-03-07] MEDS: Insulin Lispro 100 UNIT/ML INSULN.PEN SC ×3 (11:15→21:42)
--- NOTE | 2020-03-07 11:48 | PN.CARD_ITS ---
Subjectve: 64-year-old Y female was admitted for gastroenteritis and dehydration with acute on chronic renal insufficiency. With IV hydration, patient gets better with the renal function. Patient has had intermittent palpitation for the last 2 years. 2 days ago patient had an other episodes of palpitation with chest pain. EKG after admission showed inferolateral wall ischemia. Nuclear stress test was nonimpressive. Cardiac catheterization was performed yesterday and showed significant stenosis of the left anterior descending and ostial posterior de scending of the distal right coronary artery. Ejection fraction was normal. There was no wall motion abnormality. There was hypotension with the use of beta-leo during dehydration. This morning she has tolerated the beta- leo well. Vital signs are normal. She is very comfortable. Echocardiogram showed preserved left ventricular systolic wall motion and normal diastolic function. However, there was a subvalvular aortic membrane. There was a small gradient seen across the left ventricular outflow tract. Objective: Vital Signs Temp Pulse Resp BP Pulse Ox 98.5 F 68 18 119/66 92 03/07/20 09:36 03/07/20 09:44 03/07/20 09:36 03/07/20 09:36 03/07/20 09:36 Oxygen Flow Rate (L/min) 2 Oxygen Delivery Method Room Air Weight: 132 lb Body Mass Index (BMI) 26.6 Orthostatic Vital Signs Start: 03/05/20 18:08 Freq: q24h Status: Active Protocol: Activity Type Activity Date Activity User E-Sign Co-Sign Detail Recorded Client Recorded Date Recorded By Document 03/05/20 18:08 [id number] 03/05/20 18:12 03/05/20 18:08 Orthostatic Vitals Standing -Blood Pressure (90/60-120/80) 159/68 H -Extremity Use Left Arm -Pulse Rate (60-100) 64 Sitting -Blood Pressure (90/60-120/80) 151/79 H -Extremity Use Left Arm -Pulse Rate (60-100) 62 Lying -Blood Pressure (90/60-120/80) 157/73 H -Extremity Use Left Arm -Pulse Rate (60-100) 58 L Intake and Output for Last 24 Hours 03/05/20 03/06/20 03/07/20 23:59 23:59 23:59 Intake Total 3520 / 3640 2824 / 3074 1804.00 / 1804.00 Balance 3520 / 3640 2824 / 3074 180. / General: Healthy Appearing, Awake, Alert, Oriented x 3, No Acute Distress HEENT: Atraumatic Neck: Supple, Good ROM, No Lymph Node Enlargement Lungs: Clear to auscultation Cardiovascular: Regular Rhythm, Normal S1, Normal S2, No Murmurs, No Rubs, No Gallops Abdomen: Bowel Sounds Present, Soft, Non Tender, No HSM, No Organomegaly Neurological: No Focal Motor or Sensory Deficit 03/06/20 08:10: Phosphorus 1.9 L 03/07/20 05:20: Sodium 138, Potassium 4.7, Chloride 105, Carbon Dioxide 27.0, Anion Gap 6, BUN 10, Creatinine 1.15 H, Est GFR (MDRD) Af Amer 61, Est GFR (MDRD) Non-Af 51 L, BUN/Creatinine Ratio 8.7 L, Glucose 115 H, Calcium 7.8 L, Magnesium 1.4 L 03/07/20 05:20: WBC 9.2, RBC 3.17 L, Hgb 9.6 L, Hct 30.8 L, MCV 97.2, MCH 30.3, MCHC 31.2 L, Plt Count 359, MPV 9.3, Immature Gran % (Auto) 0.300, Neut % (Auto) 63.2, Lymph % (Auto) 26.0, [place] % (Auto) 7.6, Eos % (Auto) 2.4, Baso % (Auto) 0.5, Absolute Neuts (auto) 5.8, Nucleated RBC % 0 Rhythm: EKG: ECHO: Stress Test: Cardiac Cath: PCI: CT Surgery: Holter monitor: EPS: PPM: CXR: Chest CT Scan: Medical Necessity - Tobacco Use Smoking Status: Current every day smoker Tobacco Use: Cigarettes Assessment/Plan #1 severe two-vessel coronary artery disease, she is scheduled for two-vessel angioplasty and stenting Monday #2 paroxysmal atrial tachycardia most likely multifocal atrial tachycardia at times with angina, will continue beta-leo, aspirin, Plavix #3 echocardiogram showed subaortic valve membrane with mild gradient in the left ventricular outflow tract #4 renal insufficiency mostly corrected with IV hydration patient was admitted for dehydration from gastroenteritis symptoms
[2020-03-07] MEDS: Senna/Docusate Sodium 1 Tablet 2 TABLET PO (11:50)
[2020-03-07 12:07] LABS: Bedside Glucose 260 mg/dL (70-110)
[2020-03-07] MEDS: Polyethylene Glycol 3350 17 GM PACKET PO (13:17)
[2020-03-07] MEDS: Clopidogrel Bisulfate 75 MG Tablet PO (13:17)
[2020-03-07] MEDS: Aspirin E.C. 81 MG Tablet PO (13:17)
--- NOTE | 2020-03-07 14:09 | PCM.PN.HOSP ---
Patient Problems: Active and Suspected Problems Hypotension (Acute) Abnormal stress test (Acute) Dehydration (Acute) Lactic acidosis (Acute) Hypomagnesemia (Acute) Acute kidney injury superimposed on chronic kidney disease (Acute) Symptomatic bradycardia (Acute) Subjective: Pt had some blurred vision after her cath yesterday. No other sx and now resolved and pt states that she feels well. No diarrhea. No CP. Vitals/I&O's: Vital Signs Temp Pulse Resp BP Pulse Ox 98.5 F 68 18 119/66 92 03/07/20 09:36 03/07/20 09:44 03/07/20 09:36 03/07/20 09:36 03/07/20 09:36 Oxygen Flow Rate (L/min) 2 Oxygen Delivery Method Room Air Weight: 59.874 kg Body Mass Index (BMI) 26.6 Orthostatic Vital Signs Start: 03/05/20 18:08 Freq: q24h Status: Active Protocol: Activity Type Activity Date Activity User E-Sign Co-Sign Detail Recorded Client Recorded Date Recorded By Document 03/05/20 18:08 [id number] 03/05/20 18:12 03/05/20 18:08 Orthostatic Vitals Standing -Blood Pressure (90/60-120/80) 159/68 H -Extremity Use Left Arm -Pulse Rate (60-100) 64 Sitting -Blood Pressure (90/60-120/80) 151/79 H -Extremity Use Left Arm -Pulse Rate (60-100) 62 Lying -Blood Pressure (90/60-120/80) 157/73 H -Extremity Use Left Arm -Pulse Rate (60-100) 58 L Intake and Output for Last 24 Hours 03/05/20 03/06/20 03/07/20 23:59 23:59 23:59 Intake Total 3520 / 3640 2824 / 3074 Balance 3520 / 3640 2824 / 3074 General: Alert, Oriented x3, Cooperative, No apparent distress, Well developed, Well nourished, - - older WF sitting up in a chair watching TV, appears well HEENT: Atraumatic Oral: Moist Mucosa Neck: Supple, Trachea Midline Lungs: Clear to auscultation, Normal air movement, No rhonchi, No wheeze, No rales Cardiovascular: Regular rate, Regular Rhythm, Normal S1, Normal S2, No murmurs, No Ectopic Activity, No rub noted, No Gallop Abdomen: Bowel Sounds Present, Soft, Non Tender, Non-Distended Extremities: No clubbing, No cyanosis, No edema, Capillary Refill Less than 3 Seconds, Peripheral Pulses Normal Skin: No rashes, No breakdown Musculoskeletal: Tenderness - R toe better Neurological: Cranial nerves II-XII grossly intact, Neuro grossly intact Psych/Mental Status: Normal Affect, Appropriate, Alert and oriented to time, place, person, mood and affect Laboratory Results 03/06/20 15:21: POC Glucose 179 H 03/06/20 17:24: POC Glucose 173 H 03/06/20 21:11: POC Glucose 224 H 03/07/20 05:20: Sodium 138, Potassium 4.7, Chloride 105, Carbon Dioxide 27.0, Anion Gap 6, BUN 10, Creatinine 1.15 H, Estim Creat Clear Calc 47.33, Est GFR (MDRD) Af Amer 61, Est GFR (MDRD) Non-Af 51 L, BUN/Creatinine Ratio 8.7 L, Glucose 115 H, Calcium 7.8 L, Magnesium 1.4 L 03/07/20 05:20: WBC 9.2, RBC 3.17 L, Hgb 9.6 L, Hct 30.8 L, MCV 97.2, MCH 30.3, MCHC 31.2 L, RDW Std Deviation 49.6 H, RDW Coeff of Yaw 13.9, Plt Count 359, MPV 9.3, Immature Gran % (Auto) 0.300, Neut % (Auto) 63.2, Lymph % (Auto) 26.0, [place] % (Auto) 7.6, Eos % (Auto) 2.4, Baso % (Auto) 0.5, Absolute Neuts (auto) 5.8, Absolute Lymphs (auto) 2.39, Nucleated RBC % 0 03/07/20 06:44: POC Glucose 111 H 03/07/20 11:11: POC Glucose 260 H Current Medications Acetaminophen (Acetaminophen 325 Mg Tablet) 650 mg PO Q6H PRN PRN PRN Reason: Pain Score 1-10/Temp > 100.7 F Last Admin: 03/07/20 07:38 Dose: 650 mg Documented by: Aspirin (Aspirin E.C. 81 Mg Tablet) 81 mg PO DAILY@0800 [facility] [place] Last Admin: 03/07/20 13:17 Dose: 81 mg Documented by: Atorvastatin Calcium (Atorvastatin Calcium 20 Mg Tablet) 20 mg PO QHS [facility] [place] Last Admin: 03/06/20 21:18 Dose: 20 mg Documented by: Clopidogrel Bisulfate (Clopidogrel Bisulfate 75 Mg Tablet) 75 mg PO DAILY [facility] [place] Last Admin: 03/07/20 13:17 Dose: 75 mg Documented by: Divalproex Sodium (Divalproex Sodium 125 Mg Sprinkle) 125 mg PO BID [facility] [place] Last Admin: 03/07/20 09:44 Dose: 125 mg Documented by: Fluticasone Propionate (Fluticasone 0.05% 1 [place] Nasal.Sry) 2 spray NASAL DAILY [facility] Last Admin: 03/07/20 09:49 Dose: 2 spray Documented by: Gabapentin (Gabapentin 600 Mg Tablet) 600 mg PO TID [facility] Last Admin: 03/07/20 13:31 Dose: 600 mg Documented by: Guaifenesin (Guaifenesin Dm 10 Ml Udc) 5 ml PO Q6H PRN PRN PRN Reason: COUGH Heparin Sodium (Porcine) (Heparin Injection (Vial) 5,000 Unit/Ml Vial) 5,000 unit SC Q8 [facility] Last Admin: 03/07/20 13:31 Dose: 5,000 unit Documented by: Hydroxyzine Pamoate (Hydroxyzine Buffy 25 Mg Capsule) 25 mg PO DAILY [facility] Last Admin: 03/07/20 09:44 Dose: 25 mg Documented by: Sodium Chloride () 1,000 mls @ 75 mls/hr IV .[id number] [facility] Last Admin: 03/07/20 09:39 Dose: 75 mls/hr Documented by: Insulin Glargine (Insulin Glargine 100 Units/Ml Pen) 38 units SC DAILY [facility] Last Admin: 03/07/20 09:40 Dose: 38 u Documented by: Insulin Human Lispro (Insulin Lispro 100 Unit/Ml Insuln.Pen) 0 unit SC ACHS [facility] [place]; Protocol Last Admin: 03/07/20 11:15 Dose: 2 u Documented by: Levothyroxine Sodium (Levothyroxine 112 Mcg Tablet) 112 mcg PO DAILY@0600 [facility] Last Admin: 03/06/20 06:10 Dose: 112 mcg Documented by: Metoprolol Tartrate (Metoprolol Tartrate 25 Mg Tablet) 12.5 mg PO BID [facility] [place] Last Admin: 03/07/20 09:44 Dose: 12.5 mg Documented by: Morphine Sulfate (Morphine 2 Mg/Ml Syringe) 2 mg IV Q3H PRN PRN PRN Reason: Pain Score 6-10 Last Admin: 03/06/20 15:00 Dose: 2 mg Documented by: Nitroglycerin (Nitroglycerin (Inpatient Use) 0.4 Mg Tab.Subl) 0.4 mg SUBLINGUAL Q5M PRN PRN Reason: CARDIAC/CHEST PAIN Nystatin (Nystatin Powder 15gm Bottle) 1 applic TOPICAL BID [facility] [place]; Protocol Last Admin: 03/07/20 09:39 Dose: 1 applicatio Documented by: Ondansetron HCl (Ondansetron 4 Mg/2 Ml Vial) 4 mg IV Q8H PRN PRN PRN Reason: NAUSEA/VOMITING Last Admin: 03/06/20 08:16 Dose: 4 mg Documented by: Pancrelipase (Creon 24,[address] Capsule) 2 capsule PO ACHS [facility] [place] Last Admin: 03/07/20 11:14 Dose: 2 capsule Documented by: Pantoprazole Sodium (Pantoprazole Sodium 40 Mg Tablet) 40 mg PO DAILY [facility] [place] Last Admin: 03/07/20 09:44 Dose: 40 mg Documented by: Prednisone (Prednisone 20 Mg Tablet) 40 mg PO DAILY@0800 [facility] Stop: 03/10/20 08:01 Last Admin: 03/07/20 07:35 Dose: 40 mg Documented by: Senna/Docusate Sodium (Senna/Docusate Sodium 1 Tablet) 2 tablet PO BID PRN PRN PRN Reason: Constipation Last Admin: 03/07/20 11:50 Dose: 2 tablet Documented by: Sodium Chloride (0.9% Saline Lock 10 Ml Syringe) 10 - 40 ml IV UD PRN PRN Reason: SALINE FLUSH Trazodone HCl (Trazodone 100 Mg Tablet) 150 mg PO QHS [facility] [place] Last Admin: 03/06/20 21:18 Dose: 150 mg Documented by: Medical Necessity - Tobacco Use Smoking Status: Current every day smoker Tobacco Use: Cigarettes Assessment/Plan All Active Problems Hypotension (Acute) Abnormal stress test (Acute) Dehydration (Acute) Lactic acidosis (Acute) Hypomagnesemia (Acute) Acute kidney injury superimposed on chronic kidney disease (Acute) Symptomatic bradycardia (Acute) ASSESSMENT Presyncope Chest Pain PAT Hypokalemia Hypomagnesemia Recent URI SALVATORE on ? CKD--> baseline unknown Chronic Pancreatitis Chronic Diarrhea Hypothyroidism DM-2 HTN Bradycardia-symptomatic Bipolar D/O gout PLAN -cath was abn and showed multivessel CAD with LM 25% stenosis/LAD 75% stenosis/Circ 50% stenosis/RCA 50-75% stenosis and PDA 75% stenosis, EF was 75% -PCI on Monday -check lipids and increase to high dose statin for now (is on 20 mg at baseline) -Plavix/ASA/low dose metoprolol (bradycardia prior with 25 mg BID) -check A1c as BGT are fluctuating -appreciate cardiology input -tachycardia resolved -sCr up a bit today with contrast--> continue hydration -Mag bolus and recheck in am -K is WNL today -BP is good -referrals for local physicians given Inpatient E&M: 40490 Subs Hosp L2
[2020-03-07 16:41] LABS: Bedside Glucose 321 mg/dL (70-110)
[2020-03-07] MEDS: traZODone 100 MG Tablet 150 MG PO (21:41)
[2020-03-07] MEDS: Atorvastatin Calcium 80 MG Tablet PO (21:45)
[2020-03-07 22:21] LABS: Bedside Glucose 370 mg/dL (70-110)
[2020-03-08] VITALS (14 sets, daily range): BP systolic 135–188; BP diastolic 56–86; PULSE 41–65; RESP 16–18; TEMP 36.6–37.1; O2SAT 93–100
[2020-03-08 05:58] LABS: ALB/GLOB Ratio 0.6 RATIO (0.9-2.4); AST(SGOT) 30 U/L (15-37); Alanine Aminotransfer ALT/SGPT 23 U/L (13-56); Albumin, Serum 2.4 g/dL (3.2-5.0); Alkaline Phosphatase 68 U/L (45-117); Anion Gap 5 (5-15); BUN 12 mg/dL (7-18); BUN/Creat Ratio 13.7 RATIO (10-20); Calcium,Total 7.8 mg/dL (8.5-10.1); Chloride 105 mmol/L (98-107); Cholesterol 146 mg/dL (200); Creatinine, Serum 0.88 mg/dL (0.55-1.02); EST Glomerular Filtration Rate 69 mL/min (>60); Est Glom Filt Rate - Afr Amer 84 mL/min (>60); Estimated Creatinine Clearance 61.85 ml/min; Globulin 3.7 g/dL (2.2-4.2); Glucose 122 mg/dL (74-106); High Density Lipoprotein 49 mg/dL; Magnesium 1.7 mg/dL (1.6-2.6); Protein, Total 6.1 g/dL (6.4-8.2); Sodium Level 134 mmol/L (136-145); Triglycerides 165 mg/dL; Very Low Density Lipoprotein 33 mg/dL (5-40)
[2020-03-08] MEDS: Levothyroxine 112 MCG Tablet PO (06:44)
[2020-03-08] MEDS: Creon 24,000 unit DR Capsule 2 CAP PO ×4 (06:44→21:42)
[2020-03-08] MEDS: Heparin Injection (Vial) 5,000 UNIT/ML VIAL 5000 UNIT SC ×3 (06:44→21:43)
[2020-03-08] MEDS: Gabapentin 600 MG Tablet PO ×3 (06:44→21:43)
[2020-03-08 07:00] LABS: Bedside Glucose 116 mg/dL (70-110)
[2020-03-08] MEDS: Aspirin E.C. 81 MG Tablet PO (08:01)
[2020-03-08] MEDS: predniSONE 20 MG Tablet 40 MG PO (08:02)
[2020-03-08 09:17] LABS: Hemoglobin A1c 6.1 % (3.8-5.6)
[2020-03-08] MEDS: Fluticasone 0.05% 1 SPRAY NASAL.SRY 2 SPRAY NASAL (09:39)
[2020-03-08] MEDS: Nystatin Powder 15gm Bottle 1 APPLIC TOPICAL (09:40)
[2020-03-08] MEDS: Divalproex Sodium 125 MG SPRINKLE PO ×2 (09:41→21:43)
[2020-03-08] MEDS: Pantoprazole Sodium 40 MG Tablet PO (09:42)
[2020-03-08] MEDS: hydrOXYzine PAM 25 MG Capsule PO (09:42)
[2020-03-08] MEDS: Clopidogrel Bisulfate 75 MG Tablet PO (09:43)
[2020-03-08] MEDS: 0.9% Saline Lock 10 ML Syringe IV (09:49)
[2020-03-08] MEDS: Metoprolol Tartrate 25 MG Tablet 12.5 MG PO ×2 (10:39→21:43)
[2020-03-08] MEDS: Insulin Lispro 100 UNIT/ML INSULN.PEN SC ×3 (11:16→21:44)
--- NOTE | 2020-03-08 11:22 | PCM.PN.HOSP ---
<Justice Mason PA - Last Filed: 03/08/20 11:22> Patient Problems: Active and Suspected Problems Hypotension (Acute) Abnormal stress test (Acute) Dehydration (Acute) Lactic acidosis (Acute) Hypomagnesemia (Acute) Acute kidney injury superimposed on chronic kidney disease (Acute) Symptomatic bradycardia (Acute) Reason for Visit: chest pain Subjective: No chest pain today. No SOB/dizziness/LH/pressure/tightness/LE edema. Doing well. Waiting for cath/stent placement in AM. Vitals/I&O's: Vital Signs Temp Pulse Resp BP Pulse Ox 97.8 F 54 L 16 142/60 H 98 03/08/20 10:02 03/08/20 10:39 03/08/20 10:02 03/08/20 10:02 03/08/20 10:02 Oxygen Flow Rate (L/min) 2 Oxygen Delivery Method Room Air Weight: 132 lb Body Mass Index (BMI) 26.6 Orthostatic Vital Signs Start: 03/05/20 18:08 Freq: q24h Status: Active Protocol: Activity Type Activity Date Activity User E-Sign Co-Sign Detail Recorded Client Recorded Date Recorded By Document 03/08/20 06:35 KK [id number] 03/08/20 06:39 KK 03/08/20 06:35 Orthostatic Vitals Standing -Blood Pressure (90/60-120/80) 136/60 H -Extremity Use Left Arm -Pulse Rate (60-100) 52 L Sitting -Blood Pressure (90/60-120/80) 152/62 H -Extremity Use Left Arm -Pulse Rate (60-100) 54 L Lying -Blood Pressure (90/60-120/80) 152/56 H -Extremity Use Left Arm -Pulse Rate (60-100) 65 Intake and Output for Last 24 Hours 03/06/20 03/07/20 03/08/20 23:59 23:59 23:59 Intake Total 2824 / 3074 3617.25 / 3617.25 716.25 / 716.25 Balance 2824 / 3074 3617.25 / 3617.25 716.25 / 716.25 General: Alert, Oriented x3, Cooperative HEENT: Atraumatic, PERRLA, EOMI, Normocephalic Neck: Supple, No JVD, Negative Carotid Bruits Lungs: Clear to auscultation, Normal air movement Cardiovascular: Regular rate, No murmurs Abdomen: Bowel Sounds Present, Soft, Non Tender Extremities: No edema, Capillary Refill Less than 3 Seconds Skin: No rashes, No breakdown Musculoskeletal: No Tenderness to Palpation of Joints or Extremities Neurological: Cranial nerves II-XII grossly intact Psych/Mental Status: Appropriate, Flat Affect, Alert and oriented to time, place, person, mood and affect Laboratory Results 03/07/20 05:02: Hemoglobin A1c 6.1 H 03/07/20 11:11: POC Glucose 260 H 03/07/20 16:23: POC Glucose 321 H 03/07/20 21:37: POC Glucose 370 H 03/08/20 05:08: Sodium 134 L, Potassium 5.0, Chloride 105, Carbon Dioxide 24.0, Anion Gap 5, BUN 12, Creatinine 0.88, Estim Creat Clear Calc 61.85, Est GFR (MDRD) Af Amer 84, Est GFR (MDRD) Non-Af 69, BUN/Creatinine Ratio 13.7, Glucose 122 H, Calcium 7.8 L, Magnesium 1.7, Total Bilirubin 0.40, AST 30, ALT 23, Alkaline Phosphatase 68, Total Protein 6.1 L, Albumin 2.4 L, Globulin 3.7, Albumin/Globulin Ratio 0.6 L, Triglycerides 165, Cholesterol 146, LDL Cholesterol 64, VLDL Cholesterol 33, HDL Cholesterol 49 03/08/20 06:43: POC Glucose 116 H Current Medications Acetaminophen (Acetaminophen 325 Mg Tablet) 650 mg PO Q6H PRN PRN PRN Reason: Pain Score 1-10/Temp > 100.7 F Last Admin: 03/07/20 07:38 Dose: 650 mg Documented by: Aspirin (Aspirin E.C. 81 Mg Tablet) 81 mg PO DAILY@0800 [facility] Last Admin: 03/08/20 08:01 Dose: 81 mg Documented by: Atorvastatin Calcium (Atorvastatin Calcium 80 Mg Tablet) 80 mg PO QHS [facility] Last Admin: 03/07/20 21:45 Dose: 80 mg Documented by: Clopidogrel Bisulfate (Clopidogrel Bisulfate 75 Mg Tablet) 75 mg PO DAILY [facility] Last Admin: 03/08/20 09:43 Dose: 75 mg Documented by: Divalproex Sodium (Divalproex Sodium 125 Mg Sprinkle) 125 mg PO BID [facility] Last Admin: 03/08/20 09:41 Dose: 125 mg Documented by: Fluticasone Propionate (Fluticasone 0.05% 1 [place] Nasal.Sry) 2 spray NASAL DAILY [facility] Last Admin: 03/08/20 09:39 Dose: 2 spray Documented by: Gabapentin (Gabapentin 600 Mg Tablet) 600 mg PO TID [facility] Last Admin: 03/08/20 06:44 Dose: 600 mg Documented by: Guaifenesin (Guaifenesin Dm 10 Ml Udc) 5 ml PO Q6H PRN PRN PRN Reason: COUGH Heparin Sodium (Porcine) (Heparin Injection (Vial) 5,000 Unit/Ml Vial) 5,000 unit SC Q8 [facility] Last Admin: 03/08/20 06:44 Dose: 5,000 unit Documented by: Hydroxyzine Pamoate (Hydroxyzine Buffy 25 Mg Capsule) 25 mg PO DAILY [facility] Last Admin: 03/08/20 09:42 Dose: 25 mg Documented by: Insulin Glargine (Insulin Glargine 100 Units/Ml Pen) 38 units SC DAILY [facility] Last Admin: 03/08/20 09:40 Dose: 38 u Documented by: Insulin Human Lispro (Insulin Lispro 100 Unit/Ml Insuln.Pen) 0 unit SC [facility]; Protocol Last Admin: 03/08/20 11:16 Dose: 3 u Documented by: Levothyroxine Sodium (Levothyroxine 112 Mcg Tablet) 112 mcg PO DAILY@0600 [facility] Last Admin: 03/08/20 06:44 Dose: 112 mcg Documented by: Magnesium Chloride (Magnesium Chloride 64 Mg Delay Rel.Tablet) 128 mg PO DAILY [facility] Metoprolol Tartrate (Metoprolol Tartrate 25 Mg Tablet) 12.5 mg PO BID [facility] Last Admin: 03/08/20 10:39 Dose: 12.5 mg Documented by: Morphine Sulfate (Morphine 2 Mg/Ml Syringe) 2 mg IV Q3H PRN PRN PRN Reason: Pain Score 6-10 Last Admin: 03/06/20 15:00 Dose: 2 mg Documented by: Nitroglycerin (Nitroglycerin (Inpatient Use) 0.4 Mg Tab.Subl) 0.4 mg SUBLINGUAL Q5M PRN PRN Reason: CARDIAC/CHEST PAIN Nystatin (Nystatin Powder 15gm Bottle) 1 applic TOPICAL BID [facility]; Protocol Last Admin: 03/08/20 09:40 Dose: 1 applicatio Documented by: Ondansetron HCl (Ondansetron 4 Mg/2 Ml Vial) 4 mg IV Q8H PRN PRN PRN Reason: NAUSEA/VOMITING Last Admin: 03/06/20 08:16 Dose: 4 mg Documented by: Pancrelipase (Creon 24,[address] Capsule) 2 capsule PO ACHS [facility] Last Admin: 03/08/20 11:18 Dose: 2 capsule Documented by: Pantoprazole Sodium (Pantoprazole Sodium 40 Mg Tablet) 40 mg PO DAILY [facility] Last Admin: 03/08/20 09:42 Dose: 40 mg Documented by: Prednisone (Prednisone 20 Mg Tablet) 40 mg PO DAILY@0800 [facility] Stop: 03/10/20 08:01 Last Admin: 03/08/20 08:02 Dose: 40 mg Documented by: Senna/Docusate Sodium (Senna/Docusate Sodium 1 Tablet) 2 tablet PO BID PRN PRN PRN Reason: Constipation Last Admin: 03/07/20 11:50 Dose: 2 tablet Documented by: Sodium Chloride (0.9% Saline Lock 10 Ml Syringe) 10 - 40 ml IV UD PRN PRN Reason: SALINE FLUSH Last Admin: 03/08/20 09:49 Dose: 10 ml Documented by: Trazodone HCl (Trazodone 100 Mg Tablet) 150 mg PO QHS [facility] Last Admin: 03/07/20 21:41 Dose: 150 mg Documented by: STROKE Vital Signs/Narrative: Vital Signs Temp Pulse Resp BP Pulse Ox 03/08/20 10:39 54 L 03/08/20 10:02 97.8 F 54 L 16 142/60 H 98 03/08/20 07:37 93 Medical Necessity - Tobacco Use Smoking Status: Current every day smoker Tobacco Use: Cigarettes Assessment/Plan All Active Problems Hypotension (Acute) Abnormal stress test (Acute) Dehydration (Acute) Lactic acidosis (Acute) Hypomagnesemia (Acute) Acute kidney injury superimposed on chronic kidney disease (Acute) Symptomatic bradycardia (Acute) 1. Dizziness/Presyncope 2/2 bradycardia - back on low dose beta leo with mild bradycardia. asymptomatic. received dose this AM, will monitor for worsening ru. Had bursts of atrial tachy off beta leo. 2. Chest pain with underlying 2 vessel CAD - per cath. going for probable intervention tomorrow. continuie asa/statin/metoprolol. renal function stable, if stable post cath can likely ok to start doug inhibitor. 3. Hypokalemia/hypomagnesemia/hypophosphatemia - improved, check AM electrolytes. 4. SALVATORE 2/2 dehydration likely due to chronic diarrhea - resolved. 5. Recent URI - symptoms have been improving. Covid test negative. WBCs improved. no fever. Supportive care. 6. Dmt2 - A1C 6.5%, continue lantus, SSI 7. Hypothyroidism - tsh normal, continue synthroid 8. Bipolar disorder - depakote, trazodone, vistaril 9. Chronic pancreatic insufficiency - creon, chronic diarrhea 10. HTN - off triamterene HCTZ, continue norvasc, hydralazine DVT ppx: heparin DC planning: cath / stents in AM. This patient was seen by Justice Mason PA-C under the supervision of Dr. Marie <Daisha Marie - Last Filed: 03/08/20 13:14> Subjective: Feels well. Vision remains WNL. Feeling much better overall. Denies CP. Vitals/I&O's: Vital Signs Temp Pulse Resp BP Pulse Ox 97.8 F 54 L 16 142/60 H 98 03/08/20 10:02 03/08/20 10:39 03/08/20 10:02 03/08/20 10:02 03/08/20 10:02 Oxygen Flow Rate (L/min) 2 Oxygen Delivery Method Room Air Weight: 59.874 kg Body Mass Index (BMI) 26.6 Orthostatic Vital Signs Start: 03/05/20 18:08 Freq: q24h Status: Active Protocol: Activity Type Activity Date Activity User E-Sign Co-Sign Detail Recorded Client Recorded Date Recorded By Document 03/08/20 06:35 DANILO [id number] 03/08/20 06:39 DANILO 03/08/20 06:35 Orthostatic Vitals Standing -Blood Pressure (90/60-120/80) 136/60 H -Extremity Use Left Arm -Pulse Rate (60-100) 52 L Sitting -Blood Pressure (90/60-120/80) 152/62 H -Extremity Use Left Arm -Pulse Rate (60-100) 54 L Lying -Blood Pressure (90/60-120/80) 152/56 H -Extremity Use Left Arm -Pulse Rate (60-100) 65 Intake and Output for Last 24 Hours 03/06/20 03/07/20 03/08/20 23:59 23:59 23:59 Intake Total 2824 / 3074 3617.25 / 3617.25 716.25 / 716.25 Balance 2824 / 3074 3617.25 / 3617.25 716.25 / 716.25 General: Alert, Oriented x3, Cooperative, No apparent distress, Well developed, Well nourished Oral: Moist Mucosa Lungs: Clear to auscultation, Normal air movement, No rhonchi, No wheeze, No rales Cardiovascular: Regular Rhythm, Normal S1, Normal S2, No murmurs, No Ectopic Activity, Bradycardic, No rub noted, No Gallop Abdomen: Bowel Sounds Present, Soft, Non Tender, Non-Distended Extremities: No clubbing, No cyanosis, Capillary Refill Less than 3 Seconds, Peripheral Pulses Normal Neurological: Cranial nerves II-XII grossly intact, Neuro grossly intact Psych/Mental Status: Normal Affect, Appropriate, Alert and oriented to time, place, person, mood and affect Laboratory Results 03/07/20 05:02: Hemoglobin A1c 6.1 H 03/07/20 16:23: POC Glucose 321 H 03/07/20 21:37: POC Glucose 370 H 03/08/20 05:08: Sodium 134 L, Potassium 5.0, Chloride 105, Carbon Dioxide 24.0, Anion Gap 5, BUN 12, Creatinine 0.88, Estim Creat Clear Calc 61.85, Est GFR (MDRD) Af Amer 84, Est GFR (MDRD) Non-Af 69, BUN/Creatinine Ratio 13.7, Glucose 122 H, Calcium 7.8 L, Magnesium 1.7, Total Bilirubin 0.40, AST 30, ALT 23, Alkaline Phosphatase 68, Total Protein 6.1 L, Albumin 2.4 L, Globulin 3.7, Albumin/Globulin Ratio 0.6 L, Triglycerides 165, Cholesterol 146, LDL Cholesterol 64, VLDL Cholesterol 33, HDL Cholesterol 49 03/08/20 06:43: POC Glucose 116 H 03/08/20 11:16: POC Glucose 312 H Current Medications Acetaminophen (Acetaminophen 325 Mg Tablet) 650 mg PO Q6H PRN PRN PRN Reason: Pain Score 1-10/Temp > 100.7 F Last Admin: 03/07/20 07:38 Dose: 650 mg Documented by: Aspirin (Aspirin E.C. 81 Mg Tablet) 81 mg PO DAILY@0800 [facility] Last Admin: 03/08/20 08:01 Dose: 81 mg Documented by: Atorvastatin Calcium (Atorvastatin Calcium 80 Mg Tablet) 80 mg PO QHS [facility] Last Admin: 03/07/20 21:45 Dose: 80 mg Documented by: Benzonatate (Benzonatate 100 Mg Capsule) 100 mg PO 4X/DAY PRN PRN PRN Reason: COUGH Clopidogrel Bisulfate (Clopidogrel Bisulfate 75 Mg Tablet) 75 mg PO DAILY [facility] Last Admin: 03/08/20 09:43 Dose: 75 mg Documented by: Divalproex Sodium (Divalproex Sodium 125 Mg Sprinkle) 125 mg PO BID [facility] Last Admin: 03/08/20 09:41 Dose: 125 mg Documented by: Fluticasone Propionate (Fluticasone 0.05% 1 [place] Nasal.Sry) 2 spray NASAL DAILY [facility] Last Admin: 03/08/20 09:39 Dose: 2 spray Documented by: Gabapentin (Gabapentin 600 Mg Tablet) 600 mg PO TID [facility] Last Admin: 03/08/20 06:44 Dose: 600 mg Documented by: Guaifenesin (Guaifenesin Dm 10 Ml Udc) 5 ml PO Q6H PRN PRN PRN Reason: COUGH Heparin Sodium (Porcine) (Heparin Injection (Vial) 5,000 Unit/Ml Vial) 5,000 unit SC Q8 [facility] Last Admin: 03/08/20 06:44 Dose: 5,000 unit Documented by: Hydroxyzine Pamoate (Hydroxyzine Buffy 25 Mg Capsule) 25 mg PO DAILY [facility] Last Admin: 03/08/20 09:42 Dose: 25 mg Documented by: Sodium Chloride () 1,000 mls @ 0 mls/hr IV .Q0M [facility] Sodium Chloride () 1,000 mls @ 75 mls/hr IV .[id number] [facility] Insulin Glargine (Insulin Glargine 100 Units/Ml Pen) 38 units SC DAILY [facility] Last Admin: 03/08/20 09:40 Dose: 38 u Documented by: Insulin Human Lispro (Insulin Lispro 100 Unit/Ml Insuln.Pen) 0 unit SC ACHS [facility]; Protocol Last Admin: 03/08/20 11:16 Dose: 3 u Documented by: Levothyroxine Sodium (Levothyroxine 112 Mcg Tablet) 112 mcg PO DAILY@0600 [facility] Last Admin: 03/08/20 06:44 Dose: 112 mcg Documented by: Magnesium Chloride (Magnesium Chloride 64 Mg Delay Rel.Tablet) 128 mg PO DAILY [facility] Metoprolol Tartrate (Metoprolol Tartrate 25 Mg Tablet) 12.5 mg PO BID [facility] Last Admin: 03/08/20 10:39 Dose: 12.5 mg Documented by: Morphine Sulfate (Morphine 2 Mg/Ml Syringe) 2 mg IV Q3H PRN PRN PRN Reason: Pain Score 6-10 Last Admin: 03/06/20 15:00 Dose: 2 mg Documented by: Nitroglycerin (Nitroglycerin (Inpatient Use) 0.4 Mg Tab.Subl) 0.4 mg SUBLINGUAL Q5M PRN PRN Reason: CARDIAC/CHEST PAIN Nystatin (Nystatin Powder 15gm Bottle) 1 applic TOPICAL BID [facility]; Protocol Last Admin: 03/08/20 09:40 Dose: 1 applicatio Documented by: Ondansetron HCl (Ondansetron 4 Mg/2 Ml Vial) 4 mg IV Q8H PRN PRN PRN Reason: NAUSEA/VOMITING Last Admin: 03/06/20 08:16 Dose: 4 mg Documented by: Pancrelipase (Creon 24,[address] Capsule) 2 capsule PO [facility] Last Admin: 03/08/20 11:18 Dose: 2 capsule Documented by: Pantoprazole Sodium (Pantoprazole Sodium 40 Mg Tablet) 40 mg PO DAILY [facility] Last Admin: 03/08/20 09:42 Dose: 40 mg Documented by: Prednisone (Prednisone 20 Mg Tablet) 40 mg PO DAILY@0800 [facility] Stop: 03/10/20 08:01 Last Admin: 03/08/20 08:02 Dose: 40 mg Documented by: Senna/Docusate Sodium (Senna/Docusate Sodium 1 Tablet) 2 tablet PO BID PRN PRN PRN Reason: Constipation Last Admin: 03/07/20 11:50 Dose: 2 tablet Documented by: Sodium Chloride (0.9% Saline Lock 10 Ml Syringe) 10 - 40 ml IV UD PRN PRN Reason: SALINE FLUSH Last Admin: 03/08/20 09:49 Dose: 10 ml Documented by: Trazodone HCl (Trazodone 100 Mg Tablet) 150 mg PO QHS [facility] Last Admin: 03/07/20 21:41 Dose: 150 mg Documented by: STROKE Vital Signs/Narrative: Vital Signs Temp Pulse Resp BP Pulse Ox 03/08/20 10:39 54 L 03/08/20 10:02 97.8 F 54 L 16 142/60 H 98 Assessment/Plan I agree with the above and the following is a representation of my independent history and exam ASSESSMENT Presyncope ACS PAT Hypokalemia Hypomagnesemia Recent URI SALVATORE on ? CKD--> baseline unknown Chronic Pancreatitis Chronic Diarrhea Hypothyroidism DM-2 HTN Bradycardia-symptomatic Bipolar D/O gout PLAN -cath was abn and showed multivessel CAD with LM 25% stenosis/LAD 75% stenosis/Circ 50% stenosis/RCA 50-75% stenosis and PDA 75% stenosis, EF was 75% -PCI on Monday -pt is on 20 mg of statin at baseline and lipids are controlled with TC of 146/LDL 64/Trig 165/HDL 49 -Plavix/ASA/low dose metoprolol (bradycardia prior with 25 mg BID) -check A1c as BGT are fluctuating -no CP since event on Monday -appreciate cardiology input -tachycardia resolved--> but now with bradycardia again--> no current sx -sCr now WNL--> continue hydration for cath tomorrow -Mag WNL -K is WNL today -BP is good -d/c pred for gout as sx are resolved and it is driving up BGT Inpatient E&M: [id number] Subs Hosp L2
[2020-03-08 11:35] LABS: Bedside Glucose 312 mg/dL (70-110)
--- NOTE | 2020-03-08 12:09 | PCM.PN.CARD ---
Subjectve: There has been no recurrence of atrial tachycardia. There has been no chest pain. Creatinine today is 0.88. Hemodynamically very stable Objective: Vital Signs Temp Pulse Resp BP Pulse Ox 97.8 F 54 L 16 142/60 H 98 03/08/20 10:02 03/08/20 10:39 03/08/20 10:02 03/08/20 10:02 03/08/20 10:02 Oxygen Flow Rate (L/min) 2 Oxygen Delivery Method Room Air Weight: 132 lb Body Mass Index (BMI) 26.6 Orthostatic Vital Signs Start: 03/05/20 18:08 Freq: q24h Status: Active Protocol: Activity Type Activity Date Activity User E-Sign Co-Sign Detail Recorded Client Recorded Date Recorded By Document 03/08/20 06:35 DANILO [id number] 03/08/20 06:39 KK 03/08/20 06:35 Orthostatic Vitals Standing -Blood Pressure (90/60-120/80) 136/60 H -Extremity Use Left Arm -Pulse Rate (60-100) 52 L Sitting -Blood Pressure (90/60-120/80) 152/62 H -Extremity Use Left Arm -Pulse Rate (60-100) 54 L Lying -Blood Pressure (90/60-120/80) 152/56 H -Extremity Use Left Arm -Pulse Rate (60-100) 65 Intake and Output for Last 24 Hours 03/06/20 03/07/20 03/08/20 23:59 23:59 23:59 Intake Total 2824 / 3074 3617.25 / 3617.25 716.25 / 716.25 Balance 2824 / 3074 3617.25 / 3617.25 716.25 / 716.25 General: Healthy Appearing, No Acute Distress HEENT: Atraumatic Neck: Supple Lungs: Clear to auscultation Cardiovascular: Regular Rhythm, Normal S1, Normal S2, No Murmurs, No Rubs, No Gallops Abdomen: Bowel Sounds Present, Soft, Non Tender, No HSM, No Organomegaly Neurological: No Focal Motor or Sensory Deficit 03/07/20 05:02: Hemoglobin A1c 6.1 H 03/08/20 05:08: Sodium 134 L, Potassium 5.0, Chloride 105, Carbon Dioxide 24.0, Anion Gap 5, BUN 12, Creatinine 0.88, Est GFR (MDRD) Af Amer 84, Est GFR (MDRD) Non-Af 69, BUN/Creatinine Ratio 13.7, Glucose 122 H, Calcium 7.8 L, Magnesium 1.7, Total Bilirubin 0.40, Triglycerides 165, Cholesterol 146, LDL Cholesterol 64, VLDL Cholesterol 33, HDL Cholesterol 49 Rhythm: EKG: ECHO: Stress Test: Cardiac Cath: PCI: CT Surgery: Holter monitor: EPS: PPM: CXR: Chest CT Scan: Medical Necessity - Tobacco Use Smoking Status: Current every day smoker Tobacco Use: Cigarettes Assessment/Plan #1 severe two-vessel coronary artery disease, she is scheduled for two-vessel angioplasty and stenting Monday, n.p.o. after midnight #2 paroxysmal atrial tachycardia most likely multifocal atrial tachycardia at times with angina, no recurrence of the tachycardia on the beta-leo #3 echocardiogram showed subaortic valve membrane with mild gradient in the left ventricular outflow tract #4 renal insufficiency mostly corrected with IV hydration, creatinine today 0.88
[2020-03-08] MEDS: Senna/Docusate Sodium 1 Tablet 2 TABLET PO (15:04)
[2020-03-08] MEDS: Benzonatate 100 MG Capsule PO (15:05)
[2020-03-08 16:45] LABS: Bedside Glucose 243 mg/dL (70-110)
[2020-03-08] MEDS: Atorvastatin Calcium 80 MG Tablet PO (21:43)
[2020-03-08] MEDS: traZODone 100 MG Tablet 150 MG PO (21:44)
[2020-03-08 23:21] LABS: Bedside Glucose 353 mg/dL (70-110)
[2020-03-09] VITALS (19 sets, daily range): BP systolic 110–181; BP diastolic 60–73; PULSE 41–58; RESP 16–17; TEMP 36.6–37.1; O2SAT 92–97
[2020-03-09 05:53] LABS: ALB/GLOB Ratio 0.8 RATIO (0.9-2.4); AST(SGOT) 11 U/L (15-37); Alanine Aminotransfer ALT/SGPT 31 U/L (13-56); Albumin, Serum 2.9 g/dL (3.2-5.0); Alkaline Phosphatase 71 U/L (45-117); Anion Gap 7 (5-15); BUN 17 mg/dL (7-18); BUN/Creat Ratio 17.6 RATIO (10-20); Calcium,Total 8.7 mg/dL (8.5-10.1); Chloride 102 mmol/L (98-107); Creatinine, Serum 0.97 mg/dL (0.55-1.02); EST Glomerular Filtration Rate 62 mL/min (>60); Est Glom Filt Rate - Afr Amer 75 mL/min (>60); Estimated Creatinine Clearance 56.11 ml/min; Globulin 3.5 g/dL (2.2-4.2); Glucose 134 mg/dL (74-106); Phosphorus 2.8 mg/dL (2.5-4.9); Potassium 3.9 mmol/L (3.5-5.1); Protein, Total 6.4 g/dL (6.4-8.2); Sodium Level 138 mmol/L (136-145)
--- NOTE | 2020-03-09 05:55 | EKG12_ITS ---
Test Reason : AM EKG Blood Pressure : / mmHG Vent. Rate : 054 BPM Atrial Rate : 054 BPM P-R Int : 158 ms QRS Dur : 090 ms QT Int : 458 ms P-R-T Axes : 051 -52 -63 degrees QTc Int : 434 ms Sinus bradycardia with Premature atrial complexes in a pattern of bigeminy Left axis deviation ST & T wave abnormality, consider anterolateral ischemia Abnormal ECG When compared with ECG of 07-MAR-2020 05:33, MANUAL COMPARISON REQUIRED, DATA IS UNCONFIRMED Confirmed by SHAILA LOPEZ, YENI ([id number]), scientific editor AZAEL THORNE ([id number]) on 03/19/2020 9:44:06 A M Referred By: DR SARAH Confirmed By:ALEXANDRA LINTON MD
[2020-03-09] MEDS: Gabapentin 600 MG Tablet PO ×3 (06:30→22:22)
[2020-03-09] MEDS: Levothyroxine 112 MCG Tablet PO (06:30)
[2020-03-09] MEDS: Clopidogrel Bisulfate 75 MG Tablet PO (06:30)
[2020-03-09] MEDS: Aspirin E.C. 81 MG Tablet PO (06:31)
[2020-03-09] MEDS: guaiFENesin Dm 10 ML UDC 5 ML PO (06:32)
[2020-03-09 07:01] LABS: Bedside Glucose 129 mg/dL (70-110)
[2020-03-09 07:28] LABS: Hemoglobin A1c 6.2 % (3.8-5.6)
--- NOTE | 2020-03-09 07:55 | PCM.PN.CARD ---
Subjectve: The patient is awake and alert and states she is feeling much better overall. Objective: Vital Signs Temp Pulse Resp BP Pulse Ox 98.7 F 48 L 16 110/71 93 03/09/20 06:21 03/09/20 06:21 03/09/20 06:21 03/09/20 06:21 03/09/20 06:21 Oxygen Flow Rate (L/min) 2 Oxygen Delivery Method Room Air Weight: 131 lb 15.993 oz Body Mass Index (BMI) 26.6 Orthostatic Vital Signs Start: 03/05/20 18:08 Freq: q24h Status: Active Protocol: Activity Type Activity Date Activity User E-Sign Co-Sign Detail Recorded Client Recorded Date Recorded By Document 03/08/20 06:35 KK [id number] 03/08/20 06:39 DANILO 03/08/20 06:35 Orthostatic Vitals Standing -Blood Pressure (90/60-120/80) 136/60 H -Extremity Use Left Arm -Pulse Rate (60-100) 52 L Sitting -Blood Pressure (90/60-120/80) 152/62 H -Extremity Use Left Arm -Pulse Rate (60-100) 54 L Lying -Blood Pressure (90/60-120/80) 152/56 H -Extremity Use Left Arm -Pulse Rate (60-100) 65 Intake and Output for Last 24 Hours 03/07/20 03/08/20 03/09/20 23:59 23:59 23:59 Intake Total 3617.25 / 3617.25 1336.25 / 1336.25 0 / 0 Balance 3617.25 / 3617.25 1336.25 / 1336.25 0 / 0 General: Awake, Alert, Oriented x 3, Cooperative, No Acute Distress HEENT: Atraumatic, Normocephalic, PERRL, EOMI, Sclera Non Icteric Neck: Supple, Good ROM, No JVD Lungs: Clear to auscultation Cardiovascular: Regular Rhythm, Normal S1, Normal S2 Vascular: Normal Radial Pulses Abdomen: Bowel Sounds Present, Soft Extremities: No edema Neurological: No Focal Motor or Sensory Deficit Psych/Mental Status: Appropriate 03/07/20 05:02: Hemoglobin A1c 6.1 H 03/09/20 05:04: Sodium 138, Potassium 3.9, Chloride 102, Carbon Dioxide 29.0, Anion Gap 7, BUN 17, Creatinine 0.97, Est GFR (MDRD) Af Amer 75, Est GFR (MDRD) Non-Af 62, BUN/Creatinine Ratio 17.6, Glucose 134 H, Calcium 8.7, Phosphorus 2.8, Magnesium 1.0 L, Total Bilirubin 0.20 03/09/20 05:04: Hemoglobin A1c 6.2 H Rhythm: sinus rhythm; PVC Medical Necessity - Tobacco Use Smoking Status: Current every day smoker Tobacco Use: Cigarettes Assessment/Plan 1. Hypotension The patients blood pressure has improved stats post IV fluids and medication adjustment. . 2. Abnormal stress test The patient does have an abnormal stress test and such that her recovery ECG appears to be abnormal and concerning for CAD and myocardial ischemia, etc., despite her myocardial perfusion study appearing unremarkable. Thus this appears to be a mixed stress test. She underwent evaluation with a diagnostic cardiac cath on 03/06/2020. She does have CAD. She is tentatively planned for PCI today. 3. Hyperlipidemia She will continue risk factor evaluation medical therapy is deemed appropriate. 4. Hypertension Her blood pressure will be monitored and her medications adjusted as needed taking into consideration her multiple medical issues. 5. Diabetes mellitus She will continue valuation care per internal medicine. 6. Chronic pancreatic insufficiency with chronic diarrhea This apparently has been a longstanding problem for her. This can lead to her electrolyte abnormalities. Her electrolytes are being replaced. Of note, since her hospitalization, she states her diarrhea has calmed down. 7. Hypothyroidism She will continue medical management as deemed appropriate. 8. Dehydration She apparently was dehydrated when she came to the hospital. She appears improved s/p IV fluids. This note was generated using a voice recognition system and there may be incorrect words, spelling or punctuation that were not noted when reviewing the office note prior to saving.
[2020-03-09 08:22] LABS: Absolute Lymphocyte Count 2.55 X10^3/uL (0.83-4.51); Basophil# 0.03 X10^3/uL; Basophil% 0.3 % (0-1); Eosinophil# 0.07 X10^3/uL; Eosinophils% 0.7 % (0-5); Hemoglobin 9.2 g/dL (12.0-15.0); Lymphocyte # 2.55 X10^3/ul (4.0); Lymphocyte % 24.2 % (19-41); Mean Corp Hgb Conc 32.9 g/dL (32-36); Mean Corpuscular Volume 94.3 fL (81-99); Mean Platelet Vol. 9.7 fl (6.2-12.0); Monocyte% 7.6 % (0-10); NRBC Flagged by Analyzer 0 % (0-5); Neutrophil # 6.97 X10^3/uL (2.7-7.7); Neutrophil % 66.2 % (47-70); Platelet Count 324 K/mm3 (150-450); RBC Distribution Width CV 13.5 % (11.6-14.6); RBC Distribution Width SD 45.8 fl (35.1-43.9); Red Blood Count 2.97 M/mm3 (4.2-5.4); White Blood Count 10.5 K/mm3 (4.4-11.0)
[2020-03-09] MEDS: 0.9% Saline Lock 10 ML Syringe IV ×3 (08:56→22:29)
[2020-03-09] MEDS: Magnesium Sulfate 4gm/100mL 4 GM/100 ML IV.SOLN. IV (08:56)
--- NOTE | 2020-03-09 10:21 | NURSING ---
Report called to [facility] in [facility]. Informed of Mag level 1.0 with Magnesium currently infusing. Discussed vitals and difficult IV stick with current IV site noted.
[2020-03-09 12:15] LABS: ACT Activated Clotting Time 213 sec (74-137)
[2020-03-09] MEDS: 0.9% Normal Saline 1,000 ML 100 ML IV (12:30)
--- NOTE | 2020-03-09 12:30 | EKG12_ITS ---
Test Reason : RHYTHM Blood Pressure : / mmHG Vent. Rate : 129 BPM Atrial Rate : 250 BPM P-R Int : 000 ms QRS Dur : 088 ms QT Int : 328 ms P-R-T Axes : -07 256 134 degrees QTc Int : 480 ms Sinus tachycardia Lateral infarct , age undetermined Inferior infarct , age undetermined Abnormal ECG Confirmed by LAURA LOPEZ, ADELINA ([id number]), scientific publications editor AZAEL THORNE ([id number]) on 03/10/2020 8:26:59 AM Referred By: UBALDO Confirmed By:ADELINA SANCHEZ MD
--- NOTE | 2020-03-09 12:40 | CL.I_ITS ---
Patient Name: ASIF CASTRO Study Date: 03/09/2020 Performing: Linette Beaver MD Ht: 59 inches 150 cm : 1955 Wt: 132.5 lbs 60 kg Age: 64 Gender: female BSA: 1.55 PROCEDURE(S) PERFORMED [id number] W OR WO PTCA, SINGLE CORONARY ARTERY [id number] W OR WO PTCA, EACH ADD'L ARTERY, SAME MAJOR [id number] W OR WO PTCA, SINGLE CORONARY ARTERY CLINICAL PROFILE AND CO-MORBIDITIES Indications: staged PCI of CAD detected on 03/06/20 Heart Failure: None Stress/Imaging Date: 03/06/20 Stress Test with SPECT MPI: Positive Intermediate Risk CAD Presentations: Unstable angina. CONCLUSIONS Successful PCI of ostial RPDA, pRCA and mLAD with GEORGINA RECOMMENDATIONS Follow up with Dr. Miguelito Fountain for at least 12 months DESCRIPTION OF PROCEDURE The patient arrived to the procedure lab. The risks and benefits of the procedure as well as a full d escription of our services here and current unavailability of surgical backup were fully explained to the patient and/or their significant other prior to the catheterization. The Timeout was completed, verifying the correct patient and procedure. The patient's procedural site was prepped and draped in the usual fashion. Local anesthetic was given subcutaneously to right radial region with Lidocaine 2% . Using a modified Seldinger technique, arterial access was obtained via the right radial artery, a 6 Fr sheath was inserted.. JR 4 Guide catheter was inserted and engaged into the RCA. BMW Lamona Guide wire was advanced to the RCA. Emerge 2.0 x 12 Balloon catheter was inserted. Balloon catheter was advanced across lesio n in the posterior descending, ostial. PTCA balloon inflated at 8 atms for 37 secs. PTCA balloon infl ated at 6 atms for 12 secs. Synergy 2.25 x 12 Drug Eluting stent was inserted. Drug Eluting stent was advanced across the lesion in the posterior descending, ostial. Angiogram performed pre stent deploy ment. Emerge 4.0 x 15 Balloon catheter was inserted. PTCA balloon inflated at 12 atms for 25 secs. An giogram performed post balloon dilatation. Synergy 4.0 x 20 Drug Eluting stent was inserted. Angiogra m performed pre stent deployment. Angiogram performed post stent deployment. NC Euphora 4.0 x 12 Ball oon catheter was inserted. Balloon catheter was advanced across lesion in the right coronary, proxima l. XB 3.0 Guide catheter was inserted and engaged into the LCA. BMW Lamona Guide wire was advanced to the LAD. Emerge 2.0 x 12 Balloon catheter was inserted. Balloon catheter was advanced across lesion in the LAD, mid. PTCA balloon inflated at 10 atms for 13 secs. Synergy 2.5 x 16 Drug E luting stent was inserted. Drug Eluting stent was advanced across the lesion in the LAD, mid. Angiogr am performed post stent deployment. The arterial sheath was pulled and a TR Band was applied for hem ostasis INTERVENTION INFORMATION LESION SITE: RT PDA (Ostial) Lesion Complexity: High/C, chronic total occlusion: No, lesion at bifurcation: Yes, thrombus present: No, lesion length: 10 mm, culprit lesion: Yes, Previously treated lesion: No Pre Stenosis: 90 % Pre intervention SANDRA flow: 3 PROCEDURE: Drug Eluting Stent with pre dilatation. Post Stenosis: 0 % Post intervention SANDRA flow: 3 Lesion Devices: Cardinal 6 Fr JR4 100cm Guide Catheter Kim .014 BMW Lamona Straight 190cm Vascular Solutions 6 Dominican GuideLiner Johnathon Sci EMERGE MR 2.00x12 BALLOON Johnathon Sci Synergy MR GEORGINA 2.25x12 LESION SITE: RCA (Proximal) Lesion Complexity: High/C, chronic total occlusion: No, lesion at bifurcation: No, thrombus present: No, lesion length: 16 mm, culprit lesion: Yes, Previously treated lesion: No Pre Stenosis: 70 % Pre intervention SANDRA flow: 3 PROCEDURE: Drug Eluting Stent with pre and post dilatation Post Stenosis: 0 % Post intervention SANDRA flow: 3 Lesion Devices: Kim .014 BMW Lamona Straight 190cm Vascular Solutions 6 Dominican GuideLiner Johnathon Sci EMERGE MR 4.00x15 BALLOON Johnathon Sci Synergy MR GEORGINA 4.00x20 Medtronic NC EUPHORA RX 4.0x12 BALLOON LESION SITE: LAD (Proximal) Lesion Complexity: High/C, chronic total occlusion: No, lesion at bifurcation: No, thrombus present: No, lesion length: 12 mm, culprit lesion: Yes, Previously treated lesion: No Pre Stenosis: 80 % Pre intervention SANDRA flow: 3 PROCEDURE: Drug Eluting Stent with pre dilatation. 0 % Post intervention SANDRA flow: 3 Lesion Devices: Johnathon Sci EMERGE MR 2.00x12 BALLOON Cardinal 6 Fr XB3.0 100cm Guide Catheter Johnathon Sci Synergy MR GEORGINA 2.50x16 COMPLICATIONS No Complications PROCEDURE MEDICATIONS Fentanyl 50 mcg IV Versed 1 mg IV Oxygen: 2 L/min via nasal cannula Brilinta 180 mg PO @ 03/09/2020 12:05:52 Heparin given IA 03/09/2020 11:03:39 Heparin 2000 unit(s) IV 03/09/2020 11:05:57 Heparin 1500 unit(s) IV 03/09/2020 11:52:28 Nitro 200 mcg IC 03/09/2020 11:59:45 SUMMARY OF HEMODYNAMIC DATA Time AIR REST ECG 10:45:25 AO 113/67 (87) SA 11:06:48 Signed By Linette Beaver MD On 03/09/2020 12:38:48 Linette Beaver MD
--- NOTE | 2020-03-09 13:00 | PN_ITS ---
<Justice Mason PA - Last Filed: 03/09/20 13:00> Patient Problems: Active and Suspected Problems Hypotension (Acute) Abnormal stress test (Acute) Dehydration (Acute) Lactic acidosis (Acute) Hypomagnesemia (Acute) Acute kidney injury superimposed on chronic kidney disease (Acute) Symptomatic bradycardia (Acute) Reason for Visit: chest pain Subjective: no chest pain this AM. Also no SOB/LH/dizziness/Palp/Nausea/diarrhea/LE edema. Pt had some bradycardia this AM and beta leo was held. Pt seen and examined prior to heart cath. Vitals/I&O's: Vital Signs Temp Pulse Resp BP Pulse Ox 98.3 F 42 L 17 148/64 H 93 03/09/20 08:34 03/09/20 12:45 03/09/20 12:45 03/09/20 12:45 03/09/20 12:45 Oxygen Flow Rate (L/min) 2 Oxygen Delivery Method Room Air Weight: 131 lb 15.993 oz Body Mass Index (BMI) 26.6 Orthostatic Vital Signs Start: 03/05/20 18:08 Freq: q24h Status: Active Protocol: Activity Type Activity Date Activity User E-Sign Co-Sign Detail Recorded Client Recorded Date Recorded By Document 03/08/20 06:35 KK [id number] 03/08/20 06:39 KK 03/08/20 06:35 Orthostatic Vitals Standing -Blood Pressure (90/60-120/80) 136/60 H -Extremity Use Left Arm -Pulse Rate (60-100) 52 L Sitting -Blood Pressure (90/60-120/80) 152/62 H -Extremity Use Left Arm -Pulse Rate (60-100) 54 L Lying -Blood Pressure (90/60-120/80) 152/56 H -Extremity Use Left Arm -Pulse Rate (60-100) 65 Intake and Output for Last 24 Hours 03/07/20 03/08/20 03/09/20 23:59 23:59 23:59 Intake Total 3617.25 / 3617.25 1336.25 / 1336.25 0 / 0 Balance 3617.25 / 3617.25 1336.25 / 1336.25 0 / 0 General: Alert, Oriented x3, Cooperative HEENT: Atraumatic, PERRLA, EOMI, Normocephalic Neck: Supple, No JVD, Negative Carotid Bruits Lungs: Clear to auscultation, Normal air movement Cardiovascular: Regular rate, No murmurs Abdomen: Bowel Sounds Present, Soft, Non Tender Extremities: No edema, Capillary Refill Less than 3 Seconds Skin: No rashes, No breakdown Musculoskeletal: No Tenderness to Palpation of Joints or Extremities Neurological: Cranial nerves II-XII grossly intact Psych/Mental Status: Normal Affect, Appropriate, Alert and oriented to time, place, person, mood and affect Laboratory Results 03/08/20 16:34: POC Glucose 243 H 03/08/20 21:35: POC Glucose 353 H 03/09/20 05:04: Sodium 138, Potassium 3.9, Chloride 102, Carbon Dioxide 29.0, Anion Gap 7, BUN 17, Creatinine 0.97, Estim Creat Clear Calc 56.11, Est GFR (MDRD) Af Amer 75, Est GFR (MDRD) Non-Af 62, BUN/Creatinine Ratio 17.6, Glucose 134 H, Calcium 8.7, Phosphorus 2.8, Magnesium 1.0 L, Total Bilirubin 0.20, AST 11 L, ALT 31, Alkaline Phosphatase 71, Total Protein 6.4, Albumin 2.9 L, Globulin 3.5, Albumin/Globulin Ratio 0.8 L 03/09/20 05:04: Hemoglobin A1c 6.2 H 03/09/20 05:30: WBC 10.5, RBC 2.97 L, Hgb 9.2 L, Hct 28.0 L, MCV 94.3, MCH 31.0, MCHC 32.9 D, RDW Std Deviation 45.8 H, RDW Coeff of Yaw 13.5, Plt Count 324, MPV 9.7, Immature Gran % (Auto) 1.000 H, Neut % (Auto) 66.2, Lymph % (Auto) 24.2, [place] % (Auto) 7.6, Eos % (Auto) 0.7, Baso % (Auto) 0.3, Absolute Neuts (auto) 7.0, Absolute Lymphs (auto) 2.55, Nucleated RBC % 0 03/09/20 06:28: POC Glucose 129 H 03/09/20 11:48: Activated Clotting Time 213 H Current Medications Acetaminophen (Acetaminophen 325 Mg Tablet) 650 mg PO Q6H PRN PRN PRN Reason: Pain Score 1-10/Temp > 100.7 F Last Admin: 03/07/20 07:38 Dose: 650 mg Documented by: Aspirin (Aspirin E.C. 81 Mg Tablet) 81 mg PO DAILY@0800 [facility] Last Admin: 03/09/20 06:31 Dose: 81 mg Documented by: Atorvastatin Calcium (Atorvastatin Calcium 80 Mg Tablet) 80 mg PO QHS [facility] Last Admin: 03/08/20 21:43 Dose: 80 mg Documented by: Atropine Sulfate (Atropine Sulfate 1 Mg/10 Ml Syringe) 0.5 mg IV UD PRN PRN Reason: HR <50 bpm Benzonatate (Benzonatate 100 Mg Capsule) 100 mg PO 4X/DAY PRN PRN PRN Reason: COUGH Last Admin: 03/08/20 15:05 Dose: 100 mg Documented by: Divalproex Sodium (Divalproex Sodium 125 Mg Sprinkle) 125 mg PO BID [facility] Last Admin: 03/08/20 21:43 Dose: 125 mg Documented by: Fluticasone Propionate (Fluticasone 0.05% 1 [place] Nasal.Sry) 2 spray NASAL DAILY [facility] Last Admin: 03/08/20 09:39 Dose: 2 spray Documented by: Gabapentin (Gabapentin 600 Mg Tablet) 600 mg PO TID [facility] Last Admin: 03/09/20 06:30 Dose: 600 mg Documented by: Guaifenesin (Guaifenesin Dm 10 Ml Udc) 5 ml PO Q6H PRN PRN PRN Reason: COUGH Last Admin: 03/09/20 06:32 Dose: 5 ml Documented by: Heparin Sodium (Porcine) (Heparin Injection (Vial) 5,000 Unit/Ml Vial) 5,000 unit SC Q8 [facility] Last Admin: 03/09/20 06:33 Dose: Not Given Documented by: Hydroxyzine Pamoate (Hydroxyzine Buffy 25 Mg Capsule) 25 mg PO DAILY [facility] Last Admin: 03/08/20 09:42 Dose: 25 mg Documented by: Sodium Chloride () 1,000 mls @ 0 mls/hr IV .Q0M [facility] Sodium Chloride () 1,000 mls @ 75 mls/hr IV .[id number] [facility] Last Admin: 03/08/20 21:44 Dose: Not Given Documented by: Sodium Chloride () 1,000 mls @ 100 mls/hr IV .Q10H [facility] Stop: 03/09/20 22:24 Insulin Glargine (Insulin Glargine 100 Units/Ml Pen) 38 units SC DAILY [facility] Last Admin: 03/08/20 09:40 Dose: 38 u Documented by: Insulin Human Lispro (Insulin Lispro 100 Unit/Ml Insuln.Pen) 0 unit SC [facility]; Protocol Last Admin: 03/09/20 07:03 Dose: Not Given Documented by: Labetalol HCl (Labetalol (Prefilled) 20 Mg/4 Ml) 5 mg IV X1 PRN PRN Reason: SBP >160 when pulling sheath Stop: 03/11/20 12:21 Levothyroxine Sodium (Levothyroxine 112 Mcg Tablet) 112 mcg PO DAILY@0600 [facility] Last Admin: 03/09/20 06:30 Dose: 112 mcg Documented by: Magnesium Chloride (Magnesium Chloride 64 Mg Delay Rel.Tablet) 128 mg PO DAILY [facility] Metoprolol Tartrate (Metoprolol Tartrate 25 Mg Tablet) 12.5 mg PO BID [facility] Last Admin: 03/09/20 08:40 Dose: Not Given Documented by: Morphine Sulfate (Morphine 2 Mg/Ml Syringe) 2 mg IV Q3H PRN PRN PRN Reason: Pain Score 6-10 Last Admin: 03/06/20 15:00 Dose: 2 mg Documented by: Nitroglycerin (Nitroglycerin (Inpatient Use) 0.4 Mg Tab.Subl) 0.4 mg SUBLINGUAL Q5M PRN PRN Reason: CARDIAC/CHEST PAIN Nystatin (Nystatin Powder 15gm Bottle) 1 applic TOPICAL BID [facility]; Protocol Last Admin: 03/08/20 21:45 Dose: Not Given Documented by: Ondansetron HCl (Ondansetron 4 Mg/2 Ml Vial) 4 mg IV Q8H PRN PRN PRN Reason: NAUSEA/VOMITING Last Admin: 03/06/20 08:16 Dose: 4 mg Documented by: Pancrelipase (Creon 24,[address] Capsule) 2 capsule PO [facility] Last Admin: 03/08/20 21:42 Dose: 2 capsule Documented by: Pantoprazole Sodium (Pantoprazole Sodium 40 Mg Tablet) 40 mg PO DAILY [facility] Last Admin: 03/08/20 09:42 Dose: 40 mg Documented by: Senna/Docusate Sodium (Senna/Docusate Sodium 1 Tablet) 2 tablet PO BID PRN PRN PRN Reason: Constipation Last Admin: 03/08/20 15:04 Dose: 2 tablet Documented by: Sodium Chloride (0.9% Saline Lock 10 Ml Syringe) 10 - 40 ml IV UD PRN PRN Reason: SALINE FLUSH Last Admin: 03/09/20 08:56 Dose: 10 ml Documented by: Sodium Chloride (0.9% Normal Saline 500 Ml Iv.Soln.) 500 ml IV BOLUS PRN PRN Reason: VASO-VAGAL PROTOCOL Ticagrelor (Ticagrelor 90 Mg Tablet) 90 mg PO BID [facility] Trazodone HCl (Trazodone 100 Mg Tablet) 150 mg PO QHS [facility] Last Admin: 03/08/20 21:44 Dose: 150 mg Documented by: STROKE Vital Signs/Narrative: Vital Signs Pulse Resp BP Pulse Ox 03/09/20 12:45 42 L 17 148/64 H 93 03/09/20 12:30 45 L 17 162/62 H 95 Medical Necessity - Tobacco Use Smoking Status: Current every day smoker Tobacco Use: Cigarettes Assessment/Plan All Active Problems Hypotension (Acute) Abnormal stress test (Acute) Dehydration (Acute) Lactic acidosis (Acute) Hypomagnesemia (Acute) Acute kidney injury superimposed on chronic kidney disease (Acute) Symptomatic bradycardia (Acute) 1. Dizziness/Presyncope 2/2 bradycardia - beta leo held again for bradycardia 2. CAD - this AM pt had PCI of ostial RPDA, pRCA, mid LAD. Continue aspirin, statin, brilinta 3. Hypokalemia/hypomagnesemia/hypophosphatemia - improved, check AM electrolytes. Pt requires daily mag to maintain adequate mag levels. Will need Rx upon discharge. 4. SALVATORE 2/2 dehydration likely due to chronic diarrhea - resolved. 5. Recent URI - symptoms have been improving. Covid test negative. WBCs improved. no fever. Supportive care. 6. Dmt2 - A1C 6.5%, continue lantus, SSI 7. Hypothyroidism - tsh normal, continue synthroid 8. Bipolar disorder - depakote, trazodone, vistaril 9. Chronic pancreatic insufficiency - creon, chronic diarrhea - resolved at th ist time. 10. HTN - off triamterene HCTZ, continue norvasc, hydralazine DVT ppx: heparin DC planning: cath / stents in AM. This patient was seen by Justice Mason PA-C under the supervision of Dr. Pineda <MiriamChantel - Last Filed: 03/09/20 14:42> Vitals/I&O's: Vital Signs Temp Pulse Resp BP Pulse Ox 98.3 F 41 L 16 163/64 H 94 03/09/20 08:34 03/09/20 14:00 03/09/20 14:00 03/09/20 14:00 03/09/20 14:00 Oxygen Flow Rate (L/min) 2 Oxygen Delivery Method Room Air Weight: 131 lb 15.993 oz Body Mass Index (BMI) 26.6 Orthostatic Vital Signs Start: 03/05/20 18:08 Freq: q24h Status: Active Protocol: Activity Type Activity Date Activity User E-Sign Co-Sign Detail Recorded Client Recorded Date Recorded By Document 03/08/20 06:35 KK [id number] 03/08/20 06:39 KK 03/08/20 06:35 Orthostatic Vitals Standing -Blood Pressure (90/60-120/80) 136/60 H -Extremity Use Left Arm -Pulse Rate (60-100) 52 L Sitting -Blood Pressure (90/60-120/80) 152/62 H -Extremity Use Left Arm -Pulse Rate (60-100) 54 L Lying -Blood Pressure (90/60-120/80) 152/56 H -Extremity Use Left Arm -Pulse Rate (60-100) 65 Intake and Output for Last 24 Hours 03/07/20 03/08/20 03/09/20 23:59 23:59 23:59 Intake Total 3617.25 / 3617.25 1336.25 / 1336.25 100 / 100 Balance 3617.25 / 3617.25 1336.25 / 1336.25 100 / 100 Laboratory Results 03/08/20 16:34: POC Glucose 243 H 03/08/20 21:35: POC Glucose 353 H 03/09/20 05:04: Sodium 138, Potassium 3.9, Chloride 102, Carbon Dioxide 29.0, Anion Gap 7, BUN 17, Creatinine 0.97, Estim Creat Clear Calc 56.11, Est GFR (MDRD) Af Amer 75, Est GFR (MDRD) Non-Af 62, BUN/Creatinine Ratio 17.6, Glucose 134 H, Calcium 8.7, Phosphorus 2.8, Magnesium 1.0 L, Total Bilirubin 0.20, AST 11 L, ALT 31, Alkaline Phosphatase 71, Total Protein 6.4, Albumin 2.9 L, Globulin 3.5, Albumin/Globulin Ratio 0.8 L 03/09/20 05:04: Hemoglobin A1c 6.2 H 03/09/20 05:30: WBC 10.5, RBC 2.97 L, Hgb 9.2 L, Hct 28.0 L, MCV 94.3, MCH 31.0, MCHC 32.9 D, RDW Std Deviation 45.8 H, RDW Coeff of Yaw 13.5, Plt Count 324, MPV 9.7, Immature Gran % (Auto) 1.000 H, Neut % (Auto) 66.2, Lymph % (Auto) 24.2, [place] % (Auto) 7.6, Eos % (Auto) 0.7, Baso % (Auto) 0.3, Absolute Neuts (auto) 7.0, Absolute Lymphs (auto) 2.55, Nucleated RBC % 0 03/09/20 06:28: POC Glucose 129 H 03/09/20 11:48: Activated Clotting Time 213 H Current Medications Acetaminophen (Acetaminophen 325 Mg Tablet) 650 mg PO Q6H PRN PRN PRN Reason: Pain Score 1-10/Temp > 100.7 F Last Admin: 03/07/20 07:38 Dose: 650 mg Documented by: Aspirin (Aspirin E.C. 81 Mg Tablet) 81 mg PO DAILY@0800 [facility] Last Admin: 03/09/20 06:31 Dose: 81 mg Documented by: Atorvastatin Calcium (Atorvastatin Calcium 80 Mg Tablet) 80 mg PO QHS [facility] Last Admin: 03/08/20 21:43 Dose: 80 mg Documented by: Atropine Sulfate (Atropine Sulfate 1 Mg/10 Ml Syringe) 0.5 mg IV UD PRN PRN Reason: HR <50 bpm Benzonatate (Benzonatate 100 Mg Capsule) 100 mg PO 4X/DAY PRN PRN PRN Reason: COUGH Last Admin: 03/08/20 15:05 Dose: 100 mg Documented by: Divalproex Sodium (Divalproex Sodium 125 Mg Sprinkle) 125 mg PO BID [facility] Last Admin: 03/08/20 21:43 Dose: 125 mg Documented by: Fluticasone Propionate (Fluticasone 0.05% 1 [place] Nasal.Sry) 2 spray NASAL DAILY [facility] Last Admin: 03/08/20 09:39 Dose: 2 spray Documented by: Gabapentin (Gabapentin 600 Mg Tablet) 600 mg PO TID [facility] Last Admin: 03/09/20 06:30 Dose: 600 mg Documented by: Guaifenesin (Guaifenesin Dm 10 Ml Udc) 5 ml PO Q6H PRN PRN PRN Reason: COUGH Last Admin: 03/09/20 06:32 Dose: 5 ml Documented by: Heparin Sodium (Porcine) (Heparin Injection (Vial) 5,000 Unit/Ml Vial) 5,000 unit SC Q8 [facility] Last Admin: 03/09/20 13:55 Dose: Not Given Documented by: Hydroxyzine Pamoate (Hydroxyzine Buffy 25 Mg Capsule) 25 mg PO DAILY [facility] Last Admin: 03/08/20 09:42 Dose: 25 mg Documented by: Sodium Chloride () 1,000 mls @ 0 mls/hr IV .Q0M [facility] Sodium Chloride () 1,000 mls @ 75 mls/hr IV .[id number] [facility] Last Admin: 03/09/20 13:54 Dose: Not Given Documented by: Sodium Chloride () 1,000 mls @ 100 mls/hr IV .Q10H [facility] Stop: 03/09/20 22:24 Magnesium Sulfate 2 gm/ Sodium (Chloride) 104 mls @ 52 mls/hr IV X1 [facility] Stop: 03/09/20 15:59 Last Admin: 03/09/20 13:49 Dose: 52 mls/hr Documented by: Insulin Glargine (Insulin Glargine 100 Units/Ml Pen) 38 units SC DAILY [facility] Last Admin: 03/08/20 09:40 Dose: 38 u Documented by: Insulin Human Lispro (Insulin Lispro 100 Unit/Ml Insuln.Pen) 0 unit SC ACHS [facility]; Protocol Last Admin: 03/09/20 13:55 Dose: Not Given Documented by: Labetalol HCl (Labetalol (Prefilled) 20 Mg/4 Ml) 5 mg IV X1 PRN PRN Reason: SBP >160 when pulling sheath Stop: 03/11/20 12:21 Levothyroxine Sodium (Levothyroxine 112 Mcg Tablet) 112 mcg PO DAILY@0600 [facility] Last Admin: 03/09/20 06:30 Dose: 112 mcg Documented by: Magnesium Chloride (Magnesium Chloride 64 Mg Delay Rel.Tablet) 128 mg PO DAILY [facility] Metoprolol Tartrate (Metoprolol Tartrate 25 Mg Tablet) 12.5 mg PO BID [facility] Last Admin: 03/09/20 08:40 Dose: Not Given Documented by: Morphine Sulfate (Morphine 2 Mg/Ml Syringe) 2 mg IV Q3H PRN PRN PRN Reason: Pain Score 6-10 Last Admin: 03/06/20 15:00 Dose: 2 mg Documented by: Nitroglycerin (Nitroglycerin (Inpatient Use) 0.4 Mg Tab.Subl) 0.4 mg SUBLINGUAL Q5M PRN PRN Reason: CARDIAC/CHEST PAIN Nystatin (Nystatin Powder 15gm Bottle) 1 applic TOPICAL BID [facility]; Protocol Last Admin: 03/08/20 21:45 Dose: Not Given Documented by: Ondansetron HCl (Ondansetron 4 Mg/2 Ml Vial) 4 mg IV Q8H PRN PRN PRN Reason: NAUSEA/VOMITING Last Admin: 03/06/20 08:16 Dose: 4 mg Documented by: Pancrelipase (Creon 24,[address] Capsule) 2 capsule PO [facility] Last Admin: 03/09/20 13:54 Dose: Not Given Documented by: Pantoprazole Sodium (Pantoprazole Sodium 40 Mg Tablet) 40 mg PO DAILY [facility] Last Admin: 03/08/20 09:42 Dose: 40 mg Documented by: Senna/Docusate Sodium (Senna/Docusate Sodium 1 Tablet) 2 tablet PO BID PRN PRN PRN Reason: Constipation Last Admin: 03/08/20 15:04 Dose: 2 tablet Documented by: Sodium Chloride (0.9% Saline Lock 10 Ml Syringe) 10 - 40 ml IV UD PRN PRN Reason: SALINE FLUSH Last Admin: 03/09/20 08:56 Dose: 10 ml Documented by: Sodium Chloride (0.9% Normal Saline 500 Ml Iv.Soln.) 500 ml IV BOLUS PRN PRN Reason: VASO-VAGAL PROTOCOL Ticagrelor (Ticagrelor 90 Mg Tablet) 90 mg PO BID [facility] Trazodone HCl (Trazodone 100 Mg Tablet) 150 mg PO QHS [facility] Last Admin: 03/08/20 21:44 Dose: 150 mg Documented by: STROKE Vital Signs/Narrative: Vital Signs Pulse Resp BP Pulse Ox 03/09/20 14:00 41 L 16 163/64 H 94 03/09/20 13:30 45 L 17 156/60 H 93 03/09/20 13:15 45 L 16 164/68 H 94 03/09/20 13:00 49 L 16 143/66 H 97 03/09/20 12:45 42 L 17 148/64 H 93 03/09/20 12:30 45 L 17 162/62 H 95 Assessment/Plan Patient seen by TAMMY Sands under my supervision. Patient seen and examined this morning. She had no complaints and felt well. She is due for cardiac cath today. Of note, she was found to be bradycardic yesterday so metoprolol was on hold. Review of systems otherwise negative. HR is in the 40s this morning. BP is in the 160s systolic. O/E: Vital Signs Temp Pulse Resp BP Pulse Ox 98.3 F 41 L 16 163/64 H 94 03/09/20 08:34 03/09/20 14:00 03/09/20 14:00 03/09/20 14:00 03/09/20 14:00 General: Alert, Oriented x3, Cooperative HEENT: Atraumatic, PERRLA, EOMI, Normocephalic Neck: Supple, No JVD, Negative Carotid Bruits Lungs: Clear to auscultation, Normal air movement Cardiovascular: bradycardic, normal S1 and S2, no murmurs Abdomen: Bowel Sounds Present, Soft, Non Tender Extremities: No edema, Capillary Refill Less than 3 Seconds Skin: No rashes, No breakdown Musculoskeletal: No Tenderness to Palpation of Joints or Extremities Neurological: Cranial nerves II-XII grossly intact Psych/Mental Status: Normal Affect, Appropriate, Alert and oriented to time, place, person, mood and affect We will continue holding metoprolol on account of bradycardia. She had cardiac cath today with successful PCI of ostial RPDA, proximal RCA and mid LAD with drug-eluting stents. Continue on aspirin and Brilinta. She is also on high intensity statin. Magnesium today is 1.0. Will replace and monitor. Rest as per Justice Mason PA-C's notes are reviewed and endorsed. Inpatient E&M: [id number] Subs Hosp L2
[2020-03-09] MEDS: Divalproex Sodium 125 MG SPRINKLE PO ×2 (15:27→22:20)
[2020-03-09] MEDS: Fluticasone 0.05% 1 SPRAY NASAL.SRY 2 SPRAY NASAL (15:27)
[2020-03-09] MEDS: Creon 24,000 unit DR Capsule 2 CAP PO ×3 (15:28→22:20)
[2020-03-09] MEDS: Nystatin Powder 15gm Bottle 1 APPLIC TOPICAL ×2 (15:29→22:26)
[2020-03-09] MEDS: Magnesium Chloride 64 MG Delay Rel.Tablet 128 MG PO (15:29)
[2020-03-09] MEDS: Pantoprazole Sodium 40 MG Tablet PO (15:30)
[2020-03-09] MEDS: hydrOXYzine PAM 25 MG Capsule PO (15:33)
[2020-03-09 15:56] LABS: Bedside Glucose 92 mg/dL (70-110)
[2020-03-09] MEDS: Insulin Lispro 100 UNIT/ML INSULN.PEN SC ×2 (17:12→22:22)
[2020-03-09 17:26] LABS: Bedside Glucose 224 mg/dL (70-110)
[2020-03-09] MEDS: hydrALAZINE 20 MG/ML Vial 5 MG IV (20:53)
[2020-03-09] MEDS: TICAGRELOR 90 MG TABLET PO (22:19)
[2020-03-09] MEDS: traZODone 100 MG Tablet 150 MG PO (22:21)
[2020-03-09] MEDS: Atorvastatin Calcium 80 MG Tablet PO (22:21)
[2020-03-09] MEDS: 0.9% Normal Saline 1,000 ML 75 ML IV (22:29)
[2020-03-10] VITALS (16 sets, daily range): BP systolic 153–182; BP diastolic 62–79; PULSE 53–142; RESP 18–21; TEMP 36.6–36.9; O2SAT 93–94
[2020-03-10 00:46] LABS: Bedside Glucose 200 mg/dL (70-110)
[2020-03-10] MEDS: guaiFENesin Dm 10 ML UDC 5 ML PO (01:33)
[2020-03-10] MEDS: Heparin Injection (Vial) 5,000 UNIT/ML VIAL 5000 UNIT SC ×3 (05:24→21:57)
[2020-03-10] MEDS: Levothyroxine 112 MCG Tablet PO (05:24)
[2020-03-10] MEDS: Gabapentin 600 MG Tablet PO ×3 (05:24→21:58)
[2020-03-10] MEDS: Acetaminophen 325 MG Tablet 650 MG PO (06:40)
[2020-03-10] MEDS: Insulin Lispro 100 UNIT/ML INSULN.PEN SC ×3 (06:40→22:08)
[2020-03-10] MEDS: Creon 24,000 unit DR Capsule 2 CAP PO ×4 (06:40→21:57)
[2020-03-10 06:48] LABS: Hematocrit 32.9 % (37-47); Hemoglobin 10.6 g/dL (12.0-15.0); Mean Corp Hgb Conc 32.2 g/dL (32-36); Mean Corpuscular Hgb 30.8 pg (27.0-32.0); Mean Corpuscular Volume 95.6 fL (81-99); Mean Platelet Vol. 9.1 fl (6.2-12.0); Platelet Count 407 K/mm3 (150-450); RBC Distribution Width SD 48.5 fl (35.1-43.9); Red Blood Count 3.44 M/mm3 (4.2-5.4); White Blood Count 7.9 K/mm3 (4.4-11.0)
[2020-03-10 07:25] LABS: ALB/GLOB Ratio 0.9 RATIO (0.9-2.4); AST(SGOT) 20 U/L (15-37); Alanine Aminotransfer ALT/SGPT 36 U/L (13-56); Albumin, Serum 3.1 g/dL (3.2-5.0); Alkaline Phosphatase 81 U/L (45-117); Anion Gap 7 (5-15); BUN 13 mg/dL (7-18); BUN/Creat Ratio 12.3 RATIO (10-20); Chloride 102 mmol/L (98-107); Creatinine, Serum 1.06 mg/dL (0.55-1.02); EST Glomerular Filtration Rate 56 mL/min (>60); Est Glom Filt Rate - Afr Amer 67 mL/min (>60); Estimated Creatinine Clearance 51.35 ml/min; Globulin 3.6 g/dL (2.2-4.2); Glucose 149 mg/dL (74-106); Magnesium 1.8 mg/dL (1.6-2.6); Potassium 4.1 mmol/L (3.5-5.1); Protein, Total 6.7 g/dL (6.4-8.2); Sodium Level 138 mmol/L (136-145)
--- NOTE | 2020-03-10 08:01 | CRPHASE1 ---
Patient Communication Former Patient:: Phase I PHII Cardiac Rehab Discussed with Patient:: Yes Guide to Cardiac Rehab Given to Patient:: Yes Cardiac Rehab Facility Choice List Given to Patient:: Yes Choice Program [facility] CR PHII:: Communication Given to CR Choice Program Other:: Communication Given to CR Sessions:: 36 sessions - 3 days/wk, 12 weeks Choice Letter Given to Patient:: Yes Guide to Cardiac Rehab Given by ICU Staff Prior to Discharge: Yes Risk Factors/Lifestyle Laboratory Values: Cardiac Rehab Phase I Labs Hemoglobin A1c 6.2 % (3.8-5.6) H 03/09/20 05:04 Triglycerides 165 mg/dL (-199) 03/08/20 05:08 Cholesterol 146 mg/dL (200) 03/08/20 05:08 LDL Cholesterol 64 mg/dL (0-130) 03/08/20 05:08 HDL Cholesterol 49 mg/dL (40-) 03/08/20 05:08 Cardiac Rehabilitation Info Cardiac Rehabilitation Program Information: Cardiac Rehabilitation is important for patients like you who are recovering from a heart problem. Cardiac rehabilitation programs are recognized as integral to the continued care of the patient with coronary heart disease. The cardiac rehabilitation program is designed to optimize a patient's physical, psychological, and social functioning. Health adult day care worker work in cardiac rehabilitation programs and assist you with getting the treatments you need to get stronger and healthier - like exercise, healthy eating habits, and medications. Cardiac rehabilitation has been show to help people with heart problems live longer and have better life enjoyment than people who do not go to cardiac rehabilitation. Please contact the Cardiac Rehabilitation Program at [facility] at in two weeks if you have not heard from them.
--- NOTE | 2020-03-10 08:02 | CRPH1.INST_ITS ---
General Education CAD and cardiac anatomy and function:: Patient communicates acknowledgment Explanation of diagnoses and procedures:: Patient communicates acknowledgment Sign/Symptoms of HI:: Patient communicates acknowledgment Antiplatelet therapy: Patient communicates acknowledgment Smoking Patient Nicotine/Smoking Risk Factors Are:: Cigarettes Recommendations Include:: Smoking cessation strategies/Smoking packet, Second- hand smoke recommendation, Participation in a smoking cessation program, Previous smoker; encourage continued cessation Nicotine/Smoking Response Code:: Patient communicates acknowledgment Dyslipidemia Patient Dyslipidemia Risk Factors Are:: Total Cholesterol, Triglycerides, HDL, LDL Recommendations Include:: Lipid profile provided Dyslipidemia Response Code:: Patient communicates acknowledgment Overweight/Obesity Patient Overweight/Obesity Risk Factors Are:: Overweight = 26-29 Recommendations Include:: Weight loss of 5-10%, Reduced calorie diet, Exercise 5-7 times/week Overweight/Obesity:: Patient communicates acknowledgment Hypertension Recommendations Include:: Maintain BP <130/85, BP <130/80 if diabetic, DASH dietary guidelines, Decrease/maintain normal body weight Hypertension:: Patient communicates acknowledgment Diabetes Patient Diabetes Risk Factors Are:: Elevated blood sugars Recommendations Include:: Maintain fasting blood sugars 70-110 md/dL, Maintain HgbA1c of 6% or less, Monitor blood sugar as prescribed, Diabetic dietary guidelines, Decrease/maintain body weight Diabetes:: Patient communicates acknowledgment Metabolic Syndrome Patient Metabolic Syndrome Risk Factors Are [3 of 5]:: Fasting blood sugar > 100 mg/dL, Waist circumference > 35 [female] or 40 [male], High triglyceride >150, Hypertension, Low HDL <40 [male] or < 50 [female] Recommendations Include:: Reinforce compliance to risk factor modifications, Patient is diabetic Metabolic Syndrome Response Code:: Patient communicates acknowledgment Sedentary Patient Sedentary Risk Factors Are:: Lack of regular exercise Recommendations Include:: Aerobic exercise 5-7 times/week for 20-30 minutes continuously, Benefits of regular exercise, Discussed home walking program, Monitored Outpatient Cardiac Rehab Sedentary Response Code:: Patient communicates acknowledgment Stress Patient Stress Risk Factors Are:: Patient denies stress as a risk factor
[2020-03-10] MEDS: Aspirin E.C. 81 MG Tablet PO (08:29)
--- NOTE | 2020-03-10 10:00 | EKG12_ITS ---
Test Reason : AM EKG Blood Pressure : / mmHG Vent. Rate : 066 BPM Atrial Rate : 066 BPM P-R Int : 154 ms QRS Dur : 084 ms QT Int : 420 ms P-R-T Axes : 039 -59 -07 degrees QTc Int : 440 ms Sinus rhythm with Premature atrial complexes Left axis deviation Nonspecific T wave abnormality Abnormal ECG Confirmed by LAURA LOPEZ, ADELINA ([id number]), script editor AZAEL THORNE ([id number]) on 03/11/2020 7:27:57 AM Referred By: EMMANUEL Confirmed By:ADELINA SANCHEZ MD
[2020-03-10] MEDS: Fluticasone 0.05% 1 SPRAY NASAL.SRY 2 SPRAY NASAL (10:01)
[2020-03-10] MEDS: Nystatin Powder 15gm Bottle 1 APPLIC TOPICAL ×2 (10:01→22:09)
[2020-03-10] MEDS: hydrOXYzine PAM 25 MG Capsule PO (10:01)
[2020-03-10] MEDS: Divalproex Sodium 125 MG SPRINKLE PO ×2 (10:01→21:57)
[2020-03-10] MEDS: Magnesium Chloride 64 MG Delay Rel.Tablet 128 MG PO (10:01)
[2020-03-10] MEDS: Pantoprazole Sodium 40 MG Tablet PO (10:01)
[2020-03-10] MEDS: TICAGRELOR 90 MG TABLET PO ×2 (10:01→21:57)
[2020-03-10 11:31] LABS: Bedside Glucose 342 mg/dL (70-110)
[2020-03-10 11:36] LABS: Bedside Glucose 166 mg/dL (70-110)
[2020-03-10] MEDS: 0.9% Normal Saline 1,000 ML 75 ML IV (11:53)
--- NOTE | 2020-03-10 12:10 | PN_ITS ---
<Justice Mason - Last Filed: 03/10/20 12:10> Patient Problems: Active and Suspected Problems (Last Updated 03/10/20 @ 12:08 by Humaira Raymond) Hypotension (Acute) Abnormal stress test (Acute) Dehydration (Acute) Lactic acidosis (Acute) Hypomagnesemia (Acute) Acute kidney injury superimposed on chronic kidney disease (Acute) Symptomatic bradycardia (Acute) Reason for Visit: chest pain Subjective: Pt resting comfortably in bed NAD. Ongoing intermittent cough. No CP. No SOB. No palpitations. Pt continues to have tachy/ru issues and pt may need a pacemaker. Vitals/I&O's: Vital Signs Temp Pulse Resp BP Pulse Ox 97.8 F 71 18 182/66 H 94 03/10/20 08:34 03/10/20 09:59 03/10/20 08:34 03/10/20 08:34 03/10/20 08:34 Oxygen Flow Rate (L/min) 2 Oxygen Delivery Method Room Air Weight: 131 lb 15.993 oz Body Mass Index (BMI) 26.6 Orthostatic Vital Signs Start: 03/05/20 18:08 Freq: q24h Status: Active Protocol: Activity Type Activity Date Activity User E-Sign Co-Sign Detail Recorded Client Recorded Date Recorded By Document 03/08/20 06:35 DANILO [id number] 03/08/20 06:39 KK 03/08/20 06:35 Orthostatic Vitals Standing -Blood Pressure (90/60-120/80) 136/60 H -Extremity Use Left Arm -Pulse Rate (60-100) 52 L Sitting -Blood Pressure (90/60-120/80) 152/62 H -Extremity Use Left Arm -Pulse Rate (60-100) 54 L Lying -Blood Pressure (90/60-120/80) 152/56 H -Extremity Use Left Arm -Pulse Rate (60-100) 65 Intake and Output for Last 24 Hours 03/08/20 03/09/20 03/10/20 23:59 23:59 23:59 Intake Total 1336.25 / 1336.25 1114 / 1114 1000 / 1000 Balance 1336.25 / 1336.25 1114 / 1114 1000 / 1000 General: Alert, Oriented x3, Cooperative HEENT: Atraumatic, PERRLA, EOMI, Normocephalic Neck: Supple, No JVD, Negative Carotid Bruits Lungs: Clear to auscultation, Normal air movement Cardiovascular: Regular rate, No murmurs Abdomen: Bowel Sounds Present, Soft, Non Tender Extremities: No edema, Capillary Refill Less than 3 Seconds Skin: No rashes, No breakdown Musculoskeletal: No Tenderness to Palpation of Joints or Extremities Neurological: Cranial nerves II-XII grossly intact Psych/Mental Status: Normal Affect, Appropriate, Alert and oriented to time, place, person, mood and affect Laboratory Results 03/09/20 11:48: Activated Clotting Time 213 H 03/09/20 13:06: POC Glucose 92 03/09/20 17:10: POC Glucose 224 H 03/09/20 22:18: POC Glucose 200 H 03/10/20 05:45: Sodium 138, Potassium 4.1, Chloride 102, Carbon Dioxide 29.0, Anion Gap 7, BUN 13, Creatinine 1.06 H, Estim Creat Clear Calc 51.35, Est GFR (MDRD) Af Amer 67, Est GFR (MDRD) Non-Af 56 L, BUN/Creatinine Ratio 12.3, Glucose 149 H, Calcium 9.0, Magnesium 1.8, Total Bilirubin 0.40, AST 20, ALT 36, Alkaline Phosphatase 81, Total Protein 6.7, Albumin 3.1 L, Globulin 3.6, Albumin /Globulin Ratio 0.9 03/10/20 05:45: WBC 7.9, RBC 3.44 L, Hgb 10.6 L, Hct 32.9 L, MCV 95.6, MCH 30.8, MCHC 32.2, RDW Std Deviation 48.5 H, RDW Coeff of Yaw 14.0, Plt Count 407, MPV 9.1 03/10/20 06:34: POC Glucose 166 H 03/10/20 11:14: POC Glucose 342 H Current Medications Acetaminophen (Acetaminophen 325 Mg Tablet) 650 mg PO Q6H PRN PRN PRN Reason: Pain Score 1-10/Temp > 100.7 F Last Admin: 03/10/20 06:40 Dose: 650 mg Documented by: Aspirin (Aspirin E.C. 81 Mg Tablet) 81 mg PO DAILY@0800 [facility] Last Admin: 03/10/20 08:29 Dose: 81 mg Documented by: Atorvastatin Calcium (Atorvastatin Calcium 80 Mg Tablet) 80 mg PO QHS [facility] [place] Last Admin: 03/09/20 22:21 Dose: 80 mg Documented by: Atropine Sulfate (Atropine Sulfate 1 Mg/10 Ml Syringe) 0.5 mg IV UD PRN PRN Reason: HR <50 bpm Benzonatate (Benzonatate 100 Mg Capsule) 100 mg PO 4X/DAY PRN PRN PRN Reason: COUGH Last Admin: 03/08/20 15:05 Dose: 100 mg Documented by: Divalproex Sodium (Divalproex Sodium 125 Mg Sprinkle) 125 mg PO BID [facility] [place] Last Admin: 03/10/20 10:01 Dose: 125 mg Documented by: Fluticasone Propionate (Fluticasone 0.05% 1 [place] Nasal.Sry) 2 spray NASAL DAILY [facility] [place] Last Admin: 03/10/20 10:01 Dose: 2 spray Documented by: Gabapentin (Gabapentin 600 Mg Tablet) 600 mg PO TID [facility] Last Admin: 03/10/20 05:24 Dose: 600 mg Documented by: Guaifenesin (Guaifenesin Dm 10 Ml Udc) 5 ml PO Q6H PRN PRN PRN Reason: COUGH Last Admin: 03/10/20 01:33 Dose: 5 ml Documented by: Heparin Sodium (Porcine) (Heparin Injection (Vial) 5,000 Unit/Ml Vial) 5,000 unit SC Q8 [facility] Last Admin: 03/10/20 05:24 Dose: 5,000 unit Documented by: Hydroxyzine Pamoate (Hydroxyzine Buffy 25 Mg Capsule) 25 mg PO DAILY [facility] [place] Last Admin: 03/10/20 10:01 Dose: 25 mg Documented by: Sodium Chloride () 1,000 mls @ 0 mls/hr IV .Q0M [facility] Sodium Chloride () 1,000 mls @ 75 mls/hr IV .[id number] [facility] Last Admin: 03/10/20 11:53 Dose: 75 mls/hr Documented by: Insulin Glargine (Insulin Glargine 100 Units/Ml Pen) 38 units SC DAILY [facility] [place] Last Admin: 03/10/20 10:03 Dose: 38 u Documented by: Insulin Human Lispro (Insulin Lispro 100 Unit/Ml Insuln.Pen) 0 unit SC ACHS [facility]; Protocol Last Admin: 03/10/20 11:15 Dose: 4 u Documented by: Labetalol HCl (Labetalol (Prefilled) 20 Mg/4 Ml) 5 mg IV X1 PRN PRN Reason: SBP >160 when pulling sheath Stop: 03/11/20 12:21 Levothyroxine Sodium (Levothyroxine 112 Mcg Tablet) 112 mcg PO DAILY@0600 [facility] Last Admin: 03/10/20 05:24 Dose: 112 mcg Documented by: Magnesium Chloride (Magnesium Chloride 64 Mg Delay Rel.Tablet) 128 mg PO DAILY [facility] [place] Last Admin: 03/10/20 10:01 Dose: 128 mg Documented by: Morphine Sulfate (Morphine 2 Mg/Ml Syringe) 2 mg IV Q3H PRN PRN PRN Reason: Pain Score 6-10 Last Admin: 03/06/20 15:00 Dose: 2 mg Documented by: Nitroglycerin (Nitroglycerin (Inpatient Use) 0.4 Mg Tab.Subl) 0.4 mg SUBLINGUAL Q5M PRN PRN Reason: CARDIAC/CHEST PAIN Nystatin (Nystatin Powder 15gm Bottle) 1 applic TOPICAL BID [facility]; Protocol Last Admin: 03/10/20 10:01 Dose: 1 applicatio Documented by: Ondansetron HCl (Ondansetron 4 Mg/2 Ml Vial) 4 mg IV Q8H PRN PRN PRN Reason: NAUSEA/VOMITING Last Admin: 03/06/20 08:16 Dose: 4 mg Documented by: Pancrelipase (Creon 24,[address] Capsule) 2 capsule PO [facility] [place] Last Admin: 03/10/20 11:15 Dose: 2 capsule Documented by: Pantoprazole Sodium (Pantoprazole Sodium 40 Mg Tablet) 40 mg PO DAILY [facility] Last Admin: 03/10/20 10:01 Dose: 40 mg Documented by: Senna/Docusate Sodium (Senna/Docusate Sodium 1 Tablet) 2 tablet PO BID PRN PRN PRN Reason: Constipation Last Admin: 03/08/20 15:04 Dose: 2 tablet Documented by: Sodium Chloride (0.9% Saline Lock 10 Ml Syringe) 10 - 40 ml IV UD PRN PRN Reason: SALINE FLUSH Last Admin: 03/09/20 22:29 Dose: 10 ml Documented by: Sodium Chloride (0.9% Normal Saline 500 Ml Iv.Soln.) 500 ml IV BOLUS PRN PRN Reason: VASO-VAGAL PROTOCOL Ticagrelor (Ticagrelor 90 Mg Tablet) 90 mg PO BID [facility] Last Admin: 03/10/20 10:01 Dose: 90 mg Documented by: Trazodone HCl (Trazodone 100 Mg Tablet) 150 mg PO QHS [facility] Last Admin: 03/09/20 22:21 Dose: 150 mg Documented by: STROKE Vital Signs/Narrative: Vital Signs Temp Pulse Resp BP Pulse Ox 03/10/20 09:59 71 03/10/20 09:43 137 H 03/10/20 08:40 64 03/10/20 08:34 97.8 F 69 18 182/66 H 94 Medical Necessity - Tobacco Use Smoking Status: Current every day smoker Tobacco Use: Cigarettes Assessment/Plan All Active Problems (Last Updated 03/10/20 @ 12:08 by Humaira Raymond) Hypotension (Acute) Abnormal stress test (Acute) Dehydration (Acute) Lactic acidosis (Acute) Hypomagnesemia (Acute) Acute kidney injury superimposed on chronic kidney disease (Acute) Symptomatic bradycardia (Acute) 1. Tachy/ru - not tolerating beta blockers. cardiology considering pacemaker placement. 2. CAD - this AM pt had PCI of ostial RPDA, pRCA, mid LAD. Continue aspirin, statin, brilinta 3. Hypokalemia/hypomagnesemia/hypophosphatemia - improved, check AM electrolytes. Pt requires daily mag to maintain adequate mag levels. Will need Rx upon discharge. 4. SALVATORE 2/2 dehydration likely due to chronic diarrhea - resolved. 5. Recent URI - symptoms have been improving. Covid test negative. WBCs improved. no fever. Supportive care. 6. Dmt2 - A1C 6.5%, continue lantus, SSI 7. Hypothyroidism - tsh normal, continue synthroid 8. Bipolar disorder - depakote, trazodone, vistaril 9. Chronic pancreatic insufficiency - creon, chronic diarrhea - resolved at thist time. 10. HTN - off triamterene HCTZ, continue norvasc, hydralazine DVT ppx: heparin DC planning: possible need for pacer. This patient was seen by Justice Mason PA-C under the supervision of Dr. Pineda <Chantel Pineda - Last Filed: 03/10/20 14:14> Vitals/I&O's: Vital Signs Temp Pulse Resp BP Pulse Ox 97.8 F 71 18 182/66 H 94 03/10/20 08:34 03/10/20 09:59 03/10/20 08:34 03/10/20 08:34 03/10/20 08:34 Oxygen Flow Rate (L/min) 2 Oxygen Delivery Method Room Air Weight: 131 lb 15.993 oz Body Mass Index (BMI) 26.6 Orthostatic Vital Signs Start: 03/05/20 18:08 Freq: q24h Status: Active Protocol: Activity Type Activity Date Activity User E-Sign Co-Sign Detail Recorded Client Recorded Date Recorded By Document 03/08/20 06:35 KK [id number] 03/08/20 06:39 KK 03/08/20 06:35 Orthostatic Vitals Standing -Blood Pressure (90/60-120/80) 136/60 H -Extremity Use Left Arm -Pulse Rate (60-100) 52 L Sitting -Blood Pressure (90/60-120/80) 152/62 H -Extremity Use Left Arm -Pulse Rate (60-100) 54 L Lying -Blood Pressure (90/60-120/80) 152/56 H -Extremity Use Left Arm -Pulse Rate (60-100) 65 Intake and Output for Last 24 Hours 03/08/20 03/09/20 03/10/20 23:59 23:59 23:59 Intake Total 1336.25 / 1336.25 1114 / 1114 1440 / 1440 Balance 1336.25 / 1336.25 1114 / 1114 1440 / 1440 Laboratory Results 03/09/20 13:06: POC Glucose 92 03/09/20 17:10: POC Glucose 224 H 03/09/20 22:18: POC Glucose 200 H 03/10/20 05:45: Sodium 138, Potassium 4.1, Chloride 102, Carbon Dioxide 29.0, Anion Gap 7, BUN 13, Creatinine 1.06 H, Estim Creat Clear Calc 51.35, Est GFR (MDRD) Af Amer 67, Est GFR (MDRD) Non-Af 56 L, BUN/Creatinine Ratio 12.3, Glucose 149 H, Calcium 9.0, Magnesium 1.8, Total Bilirubin 0.40, AST 20, ALT 36, Alkaline Phosphatase 81, Total Protein 6.7, Albumin 3.1 L, Globulin 3.6, Albumin/Globulin Ratio 0.9 03/10/20 05:45: WBC 7.9, RBC 3.44 L, Hgb 10.6 L, Hct 32.9 L, MCV 95.6, MCH 30.8, MCHC 32.2, RDW Std Deviation 48.5 H, RDW Coeff of Yaw 14.0, Plt Count 407, MPV 9.1 03/10/20 06:34: POC Glucose 166 H 03/10/20 11:14: POC Glucose 342 H Current Medications Acetaminophen (Acetaminophen 325 Mg Tablet) 650 mg PO Q6H PRN PRN PRN Reason: Pain Score 1-10/Temp > 100.7 F Last Admin: 03/10/20 06:40 Dose: 650 mg Documented by: Aspirin (Aspirin E.C. 81 Mg Tablet) 81 mg PO DAILY@0800 [facility] Last Admin: 03/10/20 08:29 Dose: 81 mg Documented by: Atorvastatin Calcium (Atorvastatin Calcium 80 Mg Tablet) 80 mg PO QHS [facility] Last Admin: 03/09/20 22:21 Dose: 80 mg Documented by: Atropine Sulfate (Atropine Sulfate 1 Mg/10 Ml Syringe) 0.5 mg IV UD PRN PRN Reason: HR <50 bpm Benzonatate (Benzonatate 100 Mg Capsule) 100 mg PO 4X/DAY PRN PRN PRN Reason: COUGH Last Admin: 03/08/20 15:05 Dose: 100 mg Documented by: Divalproex Sodium (Divalproex Sodium 125 Mg Sprinkle) 125 mg PO BID [facility] Last Admin: 03/10/20 10:01 Dose: 125 mg Documented by: Fluticasone Propionate (Fluticasone 0.05% 1 [place] Nasal.Sry) 2 spray NASAL DAILY [facility] Last Admin: 03/10/20 10:01 Dose: 2 spray Documented by: Gabapentin (Gabapentin 600 Mg Tablet) 600 mg PO TID [facility] Last Admin: 03/10/20 05:24 Dose: 600 mg Documented by: Guaifenesin (Guaifenesin Dm 10 Ml Udc) 5 ml PO Q6H PRN PRN PRN Reason: COUGH Last Admin: 03/10/20 01:33 Dose: 5 ml Documented by: Guaifenesin (Guaifenesin 600 Mg Tablet) 600 mg PO BID [facility] Heparin Sodium (Porcine) (Heparin Injection (Vial) 5,000 Unit/Ml Vial) 5,000 unit SC Q8 [facility] Last Admin: 03/10/20 05:24 Dose: 5,000 unit Documented by: Hydroxyzine Pamoate (Hydroxyzine Buffy 25 Mg Capsule) 25 mg PO DAILY [facility] [place] Last Admin: 03/10/20 10:01 Dose: 25 mg Documented by: Sodium Chloride () 1,000 mls @ 0 mls/hr IV .Q0M [facility] Sodium Chloride () 1,000 mls @ 75 mls/hr IV .[id number] [facility] [place] Last Admin: 03/10/20 11:53 Dose: 75 mls/hr Documented by: Insulin Glargine (Insulin Glargine 100 Units/Ml Pen) 38 units SC DAILY [facility] [place] Last Admin: 03/10/20 10:03 Dose: 38 u Documented by: Insulin Human Lispro (Insulin Lispro 100 Unit/Ml Insuln.Pen) 0 unit SC ACHS [facility]; Protocol Last Admin: 03/10/20 11:15 Dose: 4 u Documented by: Labetalol HCl (Labetalol (Prefilled) 20 Mg/4 Ml) 5 mg IV X1 PRN PRN Reason: SBP >160 when pulling sheath Stop: 03/11/20 12:21 Levothyroxine Sodium (Levothyroxine 112 Mcg Tablet) 112 mcg PO DAILY@0600 [facility] Last Admin: 03/10/20 05:24 Dose: 112 mcg Documented by: Magnesium Chloride (Magnesium Chloride 64 Mg Delay Rel.Tablet) 128 mg PO DAILY [facility] Last Admin: 03/10/20 10:01 Dose: 128 mg Documented by: Morphine Sulfate (Morphine 2 Mg/Ml Syringe) 2 mg IV Q3H PRN PRN PRN Reason: Pain Score 6-10 Last Admin: 03/06/20 15:00 Dose: 2 mg Documented by: Nitroglycerin (Nitroglycerin (Inpatient Use) 0.4 Mg Tab.Subl) 0.4 mg SUBLINGUAL Q5M PRN PRN Reason: CARDIAC/CHEST PAIN Nystatin (Nystatin Powder 15gm Bottle) 1 applic TOPICAL BID [facility]; Protocol Last Admin: 03/10/20 10:01 Dose: 1 applicatio Documented by: Ondansetron HCl (Ondansetron 4 Mg/2 Ml Vial) 4 mg IV Q8H PRN PRN PRN Reason: NAUSEA/VOMITING Last Admin: 03/06/20 08:16 Dose: 4 mg Documented by: Pancrelipase (Creon 24,[address] Capsule) 2 capsule PO ACHS [facility] [place] Last Admin: 03/10/20 11:15 Dose: 2 capsule Documented by: Pantoprazole Sodium (Pantoprazole Sodium 40 Mg Tablet) 40 mg PO DAILY [facility] Last Admin: 03/10/20 10:01 Dose: 40 mg Documented by: Senna/Docusate Sodium (Senna/Docusate Sodium 1 Tablet) 2 tablet PO BID PRN PRN PRN Reason: Constipation Last Admin: 03/08/20 15:04 Dose: 2 tablet Documented by: Sodium Chloride (0.9% Saline Lock 10 Ml Syringe) 10 - 40 ml IV UD PRN PRN Reason: SALINE FLUSH Last Admin: 03/09/20 22:29 Dose: 10 ml Documented by: Sodium Chloride (0.9% Normal Saline 500 Ml Iv.Soln.) 500 ml IV BOLUS PRN PRN Reason: VASO-VAGAL PROTOCOL Ticagrelor (Ticagrelor 90 Mg Tablet) 90 mg PO BID [facility] [place] Last Admin: 03/10/20 10:01 Dose: 90 mg Documented by: Trazodone HCl (Trazodone 100 Mg Tablet) 150 mg PO QHS [facility] [place] Last Admin: 03/09/20 22:21 Dose: 150 mg Documented by: STROKE Vital Signs/Narrative: Vital Signs Pulse 03/10/20 09:59 71 03/10/20 09:43 137 H Assessment/Plan Patient seen by Justice Mason PA-C under my supervision Patient seen and examined. She complained of some palpitations overnight. She was noted to be in tachy-bradyrhythmia. She is not tolerating beta blockers. Review of systems otherwise negative. O/E: Vital Signs Temp Pulse Resp BP Pulse Ox 97.8 F 71 18 182/66 H 94 03/10/20 08:34 03/10/20 09:59 03/10/20 08:34 03/10/20 08:34 03/10/20 08:34 General: Alert, Oriented x3, Cooperative HEENT: Atraumatic, PERRLA, EOMI, Normocephalic Neck: Supple, No JVD, Negative Carotid Bruits Lungs: Clear to auscultation, Normal air movement Cardiovascular: bradycardic, normal S1 and S2, no murmurs Abdomen: Bowel Sounds Present, Soft, Non Tender Extremities: No edema, Capillary Refill Less than 3 Seconds Skin: No rashes, No breakdown Musculoskeletal: No Tenderness to Palpation of Joints or Extremities Neurological: Cranial nerves II-XII grossly intact Psych/Mental Status: Normal Affect, Appropriate, Alert and oriented to time, place, person, mood and affect Plan is to continue holding metoprolol o./a of tachy-ru syndrome. Cardiology to decide about whether to insert a pacemaker or otherwise. Continue aspirin, statin and brilinta. BP is elevated, in the 170s and 180s systolic. Start on PO amlodipine 10mg daily. IV labetalol prn. Rest as per Justice MUNOZ-C;s note, which I have reviewed and endorsed. Inpatient E&M: 44565 Subs Hosp L2
--- NOTE | 2020-03-10 12:30 | EKG12_ITS ---
Test Reason : POST PROCEDURE Blood Pressure : / mmHG Vent. Rate : 038 BPM Atrial Rate : 038 BPM P-R Int : 170 ms QRS Dur : 100 ms QT Int : 484 ms P-R-T Axes : 057 -54 -49 degrees QTc Int : 384 ms Marked sinus bradycardia Left axis deviation ST & T wave abnormality, consider anterolateral ischemia Abnormal ECG Confirmed by LAURA LOPEZ, ADELINA ([id number]), offline editor AZAEL THORNE ([id number]) on 03/11/2020 7:31:35 AM Referred By: Confirmed By:ADELINA SANCHEZ MD
--- NOTE | 2020-03-10 14:36 | PCM.PN.CARD ---
Subjectve: The patient is awake and alert. She denies ongoing chest discomfort or difficulty breathing. She states she feels tired. Objective: Vital Signs Temp Pulse Resp BP Pulse Ox 98.2 F 60 18 153/66 H 94 03/10/20 14:30 03/10/20 14:30 03/10/20 14:30 03/10/20 14:30 03/10/20 14:30 Oxygen Flow Rate (L/min) 2 Oxygen Delivery Method Room Air Weight: 131 lb 15.993 oz Body Mass Index (BMI) 26.6 Orthostatic Vital Signs Start: 03/05/20 18:08 Freq: q24h Status: Active Protocol: Activity Type Activity Date Activity User E-Sign Co-Sign Detail Recorded Client Recorded Date Recorded By Document 03/08/20 06:35 DANILO [id number] 03/08/20 06:39 DANILO 03/08/20 06:35 Orthostatic Vitals Standing -Blood Pressure (90/60-120/80) 136/60 H -Extremity Use Left Arm -Pulse Rate (60-100) 52 L Sitting -Blood Pressure (90/60-120/80) 152/62 H -Extremity Use Left Arm -Pulse Rate (60-100) 54 L Lying -Blood Pressure (90/60-120/80) 152/56 H -Extremity Use Left Arm -Pulse Rate (60-100) 65 Intake and Output for Last 24 Hours 03/08/20 03/09/20 03/10/20 23:59 23:59 23:59 Intake Total 1336.25 / 1336.25 1114 / 1114 1440 / 1440 Balance 1336.25 / 1336.25 1114 / 1114 1440 / 1440 General: Awake, Alert, Oriented x 3, Cooperative, No Acute Distress HEENT: Atraumatic, Normocephalic Neck: Supple, Good ROM, No JVD Lungs: Clear to auscultation Cardiovascular: Regular Rhythm, Normal S1, Normal S2 Vascular: No Carotid Bruits Abdomen: Bowel Sounds Present, Soft Extremities: No edema Neurological: No Focal Motor or Sensory Deficit Psych/Mental Status: Appropriate 03/10/20 05:45: Sodium 138, Potassium 4.1, Chloride 102, Carbon Dioxide 29.0, Anion Gap 7, BUN 13, Creatinine 1.06 H, Est GFR (MDRD) Af Amer 67, Est GFR (MDRD) Non-Af 56 L, BUN/Creatinine Ratio 12.3, Glucose 149 H, Calcium 9.0, Magnesium 1.8, Total Bilirubin 0.40 03/10/20 05:45: WBC 7.9, RBC 3.44 L, Hgb 10.6 L, Hct 32.9 L, MCV 95.6, MCH 30.8, MCHC 32.2, Plt Count 407, MPV 9.1 Rhythm:Sinus rhythm/sinus bradycardia/sinus tachycardia Medical Necessity - Tobacco Use Smoking Status: Current every day smoker Tobacco Use: Cigarettes Assessment/Plan 1. Hypertension The patient's blood pressure has fluctuated. She will need continued adjustment of her antihypertensive therapy taken into consideration changes with her heart rate as well. 2. CAD status post PCI The patient is status post PCI. She appears without any acute chest discomfort or difficulty breathing at this time. 3. Hyperlipidemia She will continue risk factor evaluation medical therapy is deemed appropriate. 4. Hypertension Her blood pressure will be monitored and her medications adjusted as needed taking into consideration her multiple medical issues. 5. Diabetes mellitus She will continue valuation care per internal medicine. 6. Chronic pancreatic insufficiency with chronic diarrhea This apparently has been a longstanding problem for her. This can lead to her electrolyte abnormalities. Her electrolytes are being replaced. Of note, since her hospitalization, she states her diarrhea has calmed down. 7. Hypothyroidism She will continue medical management as deemed appropriate. 8. Dehydration She apparently was dehydrated when she came to the hospital. She appears improved s/p IV fluids. 9. Cardiac dysrhythmia The patient does demonstrate episodes of normal sinus rhythm, sinus bradycardia, and sinus tachycardia. There is a question as to whether or not the patient may have an underlying bradycardia tacky syndrome/sick sinus syndrome. At the present time she is being monitored. Her beta-leo had been placed on hold based upon concerns of recurrent bradycardia. At the same time her blood pressure has elevated. She may need to attempt an alternative beta-leo and monitor her heart rate and blood pressure response. Over time she may need to be considered, in order to balance her cardiac dysrhythmia with respect of bradycardia and tachycardia, both medical therapy and possibly permanent pacemaker support. This note was generated using a voice recognition system and there may be incorrect words, spelling or punctuation that were not noted when reviewing the office note prior to saving.
[2020-03-10] MEDS: amLODIPine 10 MG Tablet PO (14:38)
[2020-03-10 17:00] LABS: Bedside Glucose 135 mg/dL (70-110)
[2020-03-10] MEDS: traZODone 100 MG Tablet 150 MG PO (21:56)
[2020-03-10] MEDS: Atorvastatin Calcium 80 MG Tablet PO (21:57)
[2020-03-10] MEDS: guaiFENesin 600 MG Tablet PO (21:58)
[2020-03-10] MEDS: Carvedilol 3.125 MG TABLET PO (21:58)
[2020-03-11 00:51] LABS: Bedside Glucose 181 mg/dL (70-110)
[2020-03-11] MEDS: 0.9% Normal Saline 1,000 ML 75 ML IV (01:25)
[2020-03-11 02:15] VITALS: PULSE 60
[2020-03-11 02:32] VITALS: BP 138/62; PULSE 62; RESP 18; TEMP 37.1; O2SAT 94
--- NOTE | 2020-03-11 04:40 | EKG12_ITS ---
Test Reason : AM EKG Blood Pressure : / mmHG Vent. Rate : 076 BPM Atrial Rate : 076 BPM P-R Int : 142 ms QRS Dur : 082 ms QT Int : 384 ms P-R-T Axes : 056 -64 115 degrees QTc Int : 432 ms Normal sinus rhythm with sinus arrhythmia Left axis deviation T wave abnormality, consider anterior ischemia Abnormal ECG When compared with ECG of 10-MAR-2020 13:05, MANUAL COMPARISON REQUIRED, DATA IS UNCONFIRMED Reconfirmed by SHAILA LOPEZ, YENI ([id number]), editorial manager LEONIDAS OJEDA ([id number]) on 03/17/2020 8:40:42 AM Referred By: EMMANUEL Confirmed By:ALEXANDRA LINTON MD
[2020-03-11] MEDS: Insulin Lispro 100 UNIT/ML INSULN.PEN SC ×2 (06:39→11:45)
[2020-03-11] MEDS: Heparin Injection (Vial) 5,000 UNIT/ML VIAL 5000 UNIT SC (06:40)
[2020-03-11] MEDS: Levothyroxine 112 MCG Tablet PO (06:41)
[2020-03-11] MEDS: Gabapentin 600 MG Tablet PO ×2 (06:41→15:05)
[2020-03-11] MEDS: Creon 24,000 unit DR Capsule 2 CAP PO ×2 (06:41→11:45)
[2020-03-11 06:59] LABS: Anion Gap 9 (5-15); BUN 10 mg/dL (7-18); BUN/Creat Ratio 10.1 RATIO (10-20); Calcium,Total 8.6 mg/dL (8.5-10.1); Chloride 104 mmol/L (98-107); EST Glomerular Filtration Rate 60 mL/min (>60); Est Glom Filt Rate - Afr Amer 72 mL/min (>60); Estimated Creatinine Clearance 54.43 ml/min; Glucose 130 mg/dL (74-106); Magnesium 1.2 mg/dL (1.6-2.6); Sodium Level 138 mmol/L (136-145)
[2020-03-11 07:00] LABS: Bedside Glucose 150 mg/dL (70-110)
[2020-03-11 07:30] VITALS: O2SAT 93
[2020-03-11 07:48] VITALS: PULSE 62
[2020-03-11 08:08] VITALS: BP 153/65; PULSE 62; RESP 18; TEMP 36.9; O2SAT 98
[2020-03-11] MEDS: amLODIPine 10 MG Tablet PO (08:11)
[2020-03-11] MEDS: TICAGRELOR 90 MG TABLET PO (08:11)
[2020-03-11] MEDS: Nystatin Powder 15gm Bottle 1 APPLIC TOPICAL (08:11)
[2020-03-11] MEDS: hydrOXYzine PAM 25 MG Capsule PO (08:11)
[2020-03-11] MEDS: Magnesium Chloride 64 MG Delay Rel.Tablet 128 MG PO ×2 (08:12→15:05)
[2020-03-11] MEDS: Aspirin E.C. 81 MG Tablet PO (08:12)
[2020-03-11] MEDS: guaiFENesin 600 MG Tablet PO (08:12)
[2020-03-11] MEDS: Divalproex Sodium 125 MG SPRINKLE PO (08:12)
[2020-03-11] MEDS: Pantoprazole Sodium 40 MG Tablet PO (08:12)
[2020-03-11] MEDS: Carvedilol 3.125 MG TABLET PO (08:12)
[2020-03-11] MEDS: Fluticasone 0.05% 1 SPRAY NASAL.SRY 2 SPRAY NASAL (08:13)
--- NOTE | 2020-03-11 09:12 | PCM.PN.CARD ---
Subjectve: The patient is awake and alert. She states overall she feels better today. Objective: Vital Signs Temp Pulse Resp BP Pulse Ox 98.5 F 62 18 153/65 H 98 03/11/20 08:08 03/11/20 08:08 03/11/20 08:08 03/11/20 08:08 03/11/20 08:08 Oxygen Flow Rate (L/min) 2 Oxygen Delivery Method Room Air Weight: 131 lb 15.993 oz Body Mass Index (BMI) 26.6 Orthostatic Vital Signs Start: 03/05/20 18:08 Freq: q24h Status: Active Protocol: Activity Type Activity Date Activity User E-Sign Co-Sign Detail Recorded Client Recorded Date Recorded By Document 03/08/20 06:35 DANILO [id number] 03/08/20 06:39 DANILO 03/08/20 06:35 Orthostatic Vitals Standing -Blood Pressure (90/60-120/80 mm Hg) 136/60 H -Extremity Use Left Arm -Pulse Rate (60-100 beats/min) 52 L Sitting -Blood Pressure (90/60-120/80 mm Hg) 152/62 H -Extremity Use Left Arm -Pulse Rate (60-100 beats/min) 54 L Lying -Blood Pressure (90/60-120/80 mm Hg) 152/56 H -Extremity Use Left Arm -Pulse Rate (60-100 beats/min) 65 Intake and Output for Last 24 Hours 03/09/20 03/10/20 03/11/20 23:59 23:59 23:59 Intake Total 1114 / 1114 2079 / 2079 1752.5 / 1752.5 Balance 1114 / 1114 2079 1752.5 / 1752.5 General: Awake, Alert, Oriented x 3, Cooperative, No Acute Distress HEENT: Atraumatic, Normocephalic, PERRL, EOMI, Sclera Non Icteric Neck: Supple, Good ROM, No JVD Lungs: Clear to auscultation Cardiovascular: Regular Rhythm, Normal S1, Normal S2 Abdomen: Bowel Sounds Present, Soft Extremities: No edema Neurological: No Focal Motor or Sensory Deficit Psych/Mental Status: Appropriate 03/11/20 05:10: Sodium 138, Potassium 4.0, Chloride 104, Carbon Dioxide 25.0, Anion Gap 9, BUN 10, Creatinine 1.00, Est GFR (MDRD) Af Amer 72, Est GFR (MDRD) Non-Af 60, BUN/Creatinine Ratio 10.1, Glucose 130 H, Calcium 8.6, Magnesium 1.2 L Rhythm: Sinus rhythm/sinus tachycardia-less frequent/less rapid compared to previous recordings EKG: Sinus rhythm; left axis deviation; poor R wave progression; nonspecific ST/T wave abnormality Medical Necessity - Tobacco Use Smoking Status: Current every day smoker Tobacco Use: Cigarettes Assessment/Plan 1. Hypertension The patient's blood pressure has fluctuated. She will need continued adjustment of her antihypertensive therapy taken into consideration changes with her heart rate as well. 2. CAD status post PCI The patient is status post PCI. She appears without any acute chest discomfort or difficulty breathing at this time. 3. Hyperlipidemia She will continue risk factor evaluation medical therapy is deemed appropriate. 4. Hypertension Her blood pressure will be monitored and her medications adjusted as needed taking into consideration her multiple medical issues. 5. Diabetes mellitus She will continue valuation care per internal medicine. 6. Chronic pancreatic insufficiency with chronic diarrhea This apparently has been a longstanding problem for her. This can lead to her electrolyte abnormalities. Her electrolytes are being replaced. Of note, since her hospitalization, she states her diarrhea has calmed down. 7. Hypothyroidism She will continue medical management as deemed appropriate. 8. Dehydration She apparently was dehydrated when she came to the hospital. She appears improved s/p IV fluids. 9. Cardiac dysrhythmia The patient's beta-blockers were changed. Overall she does appear to be doing better at this time with her underlying rate and rhythm. She will continue her current medical therapy. She will be followed as an outpatient. Over time depending upon her clinical course she may or may not need to be considered for concerns of sick sinus syndrome and medical therapy and permanent pacemaker therapy. At the present time the plan is for continued medical therapy and outpatient cardiovascular follow-up and outpatient cardiac rehabilitation. Comment: The patient's case was discussed and reviewed with Dr. Pineda. This note was generated using a voice recognition system and there may be incorrect words, spelling or punctuation that were not noted when reviewing the office note prior to saving.
--- NOTE | 2020-03-11 10:00 | EKG12_ITS ---
Test Reason : Blood Pressure : / mmHG Vent. Rate : 066 BPM Atrial Rate : 066 BPM P-R Int : 150 ms QRS Dur : 090 ms QT Int : 388 ms P-R-T Axes : 051 -60 -07 degrees QTc Int : 406 ms Normal sinus rhythm with sinus arrhythmia Left axis deviation T wave abnormality, consider anterior ischemia Abnormal ECG When compared with ECG of 10-MAR-2020 04:48, MANUAL COMPARISON REQUIRED, DATA IS UNCONFIRMED Confirmed by SHAILA LOPEZ, YENI ([id number]), editor managing director AZAEL THORNE ([id number]) on 03/11/2020 1:11:01 P M Referred By: EMMANUEL Confirmed By:ALEXANDRA LINTON MD
[2020-03-11 12:00] LABS: Bedside Glucose 234 mg/dL (70-110)
[2020-03-11 14:21] VITALS: BP 150/49; PULSE 64; RESP 18; TEMP 36.7; O2SAT 97
--- NOTE | 2020-03-11 14:33 | DCINST_ITS ---
- Discharge Diagnoses Current Active Problems: Current Active and Chronic Problems (Last Updated 03/10/20 @ 12:08 by Humaira Raymond) Hypotension (Acute) Abnormal stress test (Acute) Dehydration (Acute) Lactic acidosis (Acute) Hypomagnesemia (Acute) Acute kidney injury superimposed on chronic kidney disease (Acute) Symptomatic bradycardia (Acute) Hyperlipidemia (Chronic) Type 2 diabetes mellitus (Chronic) Hypothyroidism (Chronic) Hypertension (Chronic) Bipolar disorder (Chronic) Chronic pancreatic insufficiency (Chronic) Depression (Chronic) You will use the following diet at home:: Cardiac Your food should be the consistency of: Regular Your liquids should be the consistency of: Regular/Thin Discharge Activity: Return to Normal Activity Weight Bearing Status: Weight bearing as tolerated Call your doctor if you observe: Shortness of breath, Dizziness, Fainting spells, Swelling in the ankles, Chest pain, Increased palpitations (irregular heartbeat) Instructions: What Is Angina?, Ventricular Arrhythmia Additional Instructions: follow up with PCP for repeat BMP in 2-3 days to follow up potassium and magnesium levels. Allergies/Adverse Reactions: Allergies duloxetine [From Cymbalta] Allergy (Verified 03/04/20 15:08) Itching tomato Allergy (Verified 03/04/20 15:08) Itching Medications to take at Discharge Allopurinol 100 mg PO QHS 03/04/20 Divalproex Sodium 125 mg PO BID 03/04/20 Gabapentin [Neurontin] 600 mg PO TID 03/04/20 Hydrocodone/Acetaminophen [Hydrocodone-Acetamin 5-325 mg] 1 - 2 tab PO Q4H PRN PRN 03/04/20 Hydroxyzine HCl 25 mg PO DAILY 03/04/20 Insulin Glargine [Lantus SoloStar Pen] 40 units SQ QHS 03/04/20 Levothyroxine [Synthroid] 112 mcg PO DAILY 03/04/20 Lipase/Protease/Amylase [Creon Dr 24,000 Units Capsule] 2 cap PO BIDCM 03/04/20 Pantoprazole Sodium [Protonix] 40 mg PO DAILY 03/04/20 Trazodone HCl 150 mg PO QHS 03/04/20 Triamterene 37.5MG/Hctz 25MG [Maxzide 37.5 mg-25 mg Tablet] 1 tab PO DAILY 03/04/20 Aspirin E.C. [Ecotrin] 81 mg PO DAILY@0800 #30 tab 03/11/20 Atorvastatin Calcium [Lipitor] 80 mg PO QHS #30 tab 03/11/20 Carvedilol [Coreg (Beta Scot)] 3.125 mg PO BID #60 tab 03/11/20 Magnesium Chloride [Slow-Mag] 71.5 mg PO BID #20 tablet. 03/11/20 Ticagrelor [Brilinta] 90 mg PO BID #60 tab 03/11/20 The following prescriptions were given: Ticagrelor [Brilinta] 90 mg PO BID #60 tab Transmission Status: Pending to [id number] Carvedilol [Coreg (Beta Scot)] 3.125 mg PO BID #60 tab Transmission Status: Pending to [facility] Aspirin E.C. [Ecotrin] 81 mg PO DAILY@0800 #30 tab Transmission Status: Pending to [facility] Atorvastatin Calcium [Lipitor] 80 mg PO QHS #30 tab Transmission Status: Pending to [facility] Magnesium Chloride [Slow-Mag] 71.5 mg PO BID #20 tablet.dr Transmission Status: Pending to [facility] Primary Care Physician: Yamila Tompkins MD [Primary Care Provider] - Please follow up with your Primary Care Physician in: 1-2 weeks Test Results: Test results from this visit will be discussed in further detail at your follow- up appointment, if applicable. Please Follow Up With: Dani Farley MD When: 2-3 weeks Proposed Discharge Date: 03/11/20
--- NOTE | 2020-03-11 14:37 | DS.PCM_ITS ---
Discharge Date and Diagnosis - Problem List Patient Problems: Active and Suspected Problems (Last Updated 03/10/20 @ 12:08 by Humaira Raymond) Hypotension (Acute) Abnormal stress test (Acute) Dehydration (Acute) Lactic acidosis (Acute) Hypomagnesemia (Acute) Acute kidney injury superimposed on chronic kidney disease (Acute) Symptomatic bradycardia (Acute) Date of Admission: 03/04/20 Date of Discharge: 03/11/20 - Primary Discharge Diagnosis Acute Problems: Active Problems (Last Updated 03/10/20 @ 12:08 by Humaira Raymond) Hypotension (Acute) Abnormal stress test (Acute) Dehydration (Acute) Lactic acidosis (Acute) Hypomagnesemia (Acute) Acute kidney injury superimposed on chronic kidney disease (Acute) Symptomatic bradycardia (Acute) unstable angina - Secondary Discharge Diagnosis Chronic Problems: Chronic Problems (Last Updated 03/10/20 @ 12:08 by Humaira Raymond) Presence of stent in coronary artery (Chronic ~03/09/20) Successful PCI of ostial RPDA, pRCA and mLAD with GEORGINA 03/09/20 Atherosclerotic heart disease of [place] coronary artery without angina pectoris (Chronic) Hyperlipidemia (Chronic) Type 2 diabetes mellitus (Chronic) Hypothyroidism (Chronic) Hypertension (Chronic) Bipolar disorder (Chronic) Chronic pancreatic insufficiency (Chronic) Depression (Chronic) Hospital Course and Treatment Imaging Results: Diagnostic Data Brain CT 03/04/20 15:08 IMPRESSION: Chronic involutional changes of the brain. Electronically Signed: Lloyd Evans, at 16:04 EDT , Service support , Chest X-Ray 03/04/20 16:05 IMPRESSION: No acute thoracic pathology. Electronically Signed: Davie Rapp, at 16:19 EDT Tel , Service support , Interpretation Summary Normal LV size. Concentric left ventricular hypertrophy. Left ventricular systolic function is normal. The estimated ejection fraction is 65 %. Normal diastology for age. No regional wall motion abnormalities noted. Presence of subvalvular membrane, mild gradient across the LVOT Mean aortic valve gradient 16.2 mmHg. Unable to estimate RV systolic pressure due to insufficient tricuspid regurgitant envelope. Mild tricuspid valve insufficiency. cardiology- Dr Farley Operations: None Procedures: 2-D Echocardiogram, Cardiac catheterization Summary of Care Provided: The patient is a 64 year old F with a past medical history as outlined. She was admitted through the ED on 03/04/2020 with a complaint of dizziness and near syncope. Patient had been standing in the kitchen preparing had dinner and suddenly felt dizzy and lightheaded. She was able to lower herself to the floor but denied any loss of consciousness. She also complained of mild shortness of breath. She denied any chest pain no palpitations and admitted to a cough and poor oral intake. She was found to be bradycardic with heart rate in the 40s and blood pressure was slightly elevated. COVID was negative. UA showed 2+ bacteria, and serum magnesium was 0.9. EKG showed sinus bradycardia. Chest x- ray showed no acute ST changes and CT of the brain was also negative. She was admitted to be managed for SALVATORE on CKD 3, symptomatic bradycardia and hypomagnesemia as well as near syncope. Her metoprolol was decreased and magnesium was replaced. She subsequently started complaining of chest pain. Bradycardia subsequently resolved. Cardiology was consulted and she had a stress test on 03/06/2020 which showed EF of 73% and uniform tracer uptake. Due to suspicion for CAD and unstable angina, patient had a cardiac cath which showed multivessel coronary artery disease. She therefore has stage percutaneous intervention with successful PCI of ostial RPDA, proximal RCA and mid LAD with drug-eluting stents. She was put on aspirin and Brilinta and was to take aspirin indefinitely with Brilinta for at least 12 months. Subsequently had bradycardia again and then subsequently had tachycardia and so it was thought that she possibly had a tachybradycardia arrhythmia. Cardiology considered pacemaker, decided against this for now. Patient's beta-scot was switched from metoprolol to carvedilol. She remained stable and was discharged on 03/11/2020 on p.o. carvedilol as well as p.o. Maxide. She was also discharged on aspirin and Brilinta as well as high intensity statin. She is to follow-up with her primary care doctor and with cardiology. Patient seen and examined prior to discharge. She felt well and had no complaints. Review systems otherwise negative. Labs and vitals reviewed. Home medication reviewed and reconciled. O/E: Vital Signs Temp Pulse Resp BP Pulse Ox 98.1 F 64 18 150/49 H 97 03/11/20 14:21 03/11/20 14:21 03/11/20 14:21 03/11/20 14:21 03/11/20 14:21 General: Alert, Oriented x3, Cooperative HEENT: Atraumatic, PERRLA, EOMI, Normocephalic Neck: Supple, No JVD, Negative Carotid Bruits Lungs: Clear to auscultation, Normal air movement Cardiovascular: bradycardic, normal S1 and S2, no murmurs Abdomen: Bowel Sounds Present, Soft, Non Tender Extremities: No edema, Capillary Refill Less than 3 Seconds Skin: No rashes, No breakdown Musculoskeletal: No Tenderness to Palpation of Joints or Extremities Neurological: Cranial nerves II-XII grossly intact Psych/Mental Status: Normal Affect, Appropriate, Alert and oriented to time, place, person, mood and affect Plan is for discharge home today. He was also complicated by low magnesium and patient was discharged on p.o. magnesium supplementation. She is follow-up with her primary care doctor in 2 to 3 days for repeat BMP and magnesium level to follow-up on magnesium. Patient Problems: Active and Suspected Problems (Last Updated 03/10/20 @ 12:08 by Humaira Raymond) Hypotension (Acute) Abnormal stress test (Acute) Dehydration (Acute) Lactic acidosis (Acute) Hypomagnesemia (Acute) Acute kidney injury superimposed on chronic kidney disease (Acute) Symptomatic bradycardia (Acute) - Physical Exam Vitals/I&O's: Vital Signs Temp Pulse Resp BP Pulse Ox 98.1 F 64 18 150/49 H 97 03/11/20 14:21 03/11/20 14:21 03/11/20 14:21 03/11/20 14:21 03/11/20 14:21 Oxygen Flow Rate (L/min) 2 Oxygen Delivery Method Room Air Weight: 131 lb 15.993 oz Body Mass Index (BMI) 26.6 Orthostatic Vital Signs Start: 03/05/20 18:08 Freq: q24h Status: Active Protocol: Activity Type Activity Date Activity User E-Sign Co-Sign Detail Recorded Client Recorded Date Recorded By Document 03/08/20 06:35 DANILO [id number] 03/08/20 06:39 KK 03/08/20 06:35 Orthostatic Vitals Standing -Blood Pressure (90/60-120/80) 136/60 H -Extremity Use Left Arm -Pulse Rate (60-100) 52 L Sitting -Blood Pressure (90/60-120/80) 152/62 H -Extremity Use Left Arm -Pulse Rate (60-100) 54 L Lying -Blood Pressure (90/60-120/80) 152/56 H -Extremity Use Left Arm -Pulse Rate (60-100) 65 Intake and Output for Last 24 Hours 03/09/20 03/10/20 03/11/20 23:59 23:59 23:59 Intake Total 1114 / 1114 2079 / 2079 2152.5 / 2151.5 Balance 1114 / 1114 2079.5 / 2151.5 Laboratory Results 03/10/20 16:32: POC Glucose 135 H 03/10/20 22:07: POC Glucose 181 H 03/11/20 05:10: Sodium 138, Potassium 4.0, Chloride 104, Carbon Dioxide 25.0, Anion Gap 9, BUN 10, Creatinine 1.00, Estim Creat Clear Calc 54.43, Est GFR (MDRD) Af Amer 72, Est GFR (MDRD) Non-Af 60, BUN/Creatinine Ratio 10.1, Glucose 130 H, Calcium 8.6, Magnesium 1.2 L 03/11/20 06:38: POC Glucose 150 H 03/11/20 11:39: POC Glucose 234 H Current Medications Acetaminophen (Acetaminophen 325 Mg Tablet) 650 mg PO Q6H PRN PRN PRN Reason: Pain Score 1-10/Temp > 100.7 F Last Admin: 03/10/20 06:40 Dose: 650 mg Documented by: Amlodipine Besylate (Amlodipine 10 Mg Tablet) 10 mg PO DAILY [facility] Last Admin: 03/11/20 08:11 Dose: 10 mg Documented by: Aspirin (Aspirin E.C. 81 Mg Tablet) 81 mg PO DAILY@0800 [facility] Last Admin: 03/11/20 08:12 Dose: 81 mg Documented by: Atorvastatin Calcium (Atorvastatin Calcium 80 Mg Tablet) 80 mg PO QHS [facility] Last Admin: 03/10/20 21:57 Dose: 80 mg Documented by: Atropine Sulfate (Atropine Sulfate 1 Mg/10 Ml Syringe) 0.5 mg IV UD PRN PRN Reason: HR <50 bpm Benzonatate (Benzonatate 100 Mg Capsule) 100 mg PO 4X/DAY PRN PRN PRN Reason: COUGH Last Admin: 03/08/20 15:05 Dose: 100 mg Documented by: Carvedilol (Carvedilol 3.125 Mg Tablet) 3.125 mg PO BID [facility] Last Admin: 03/11/20 08:12 Dose: 3.125 mg Documented by: Divalproex Sodium (Divalproex Sodium 125 Mg Sprinkle) 125 mg PO BID [facility] Last Admin: 03/11/20 08:12 Dose: 125 mg Documented by: Fluticasone Propionate (Fluticasone 0.05% 1 [place] Nasal.Sry) 2 spray NASAL DAILY [facility] Last Admin: 03/11/20 08:13 Dose: 2 spray Documented by: Gabapentin (Gabapentin 600 Mg Tablet) 600 mg PO TID [facility] Last Admin: 03/11/20 06:41 Dose: 600 mg Documented by: Guaifenesin (Guaifenesin Dm 10 Ml Udc) 5 ml PO Q6H PRN PRN PRN Reason: COUGH Last Admin: 03/10/20 01:33 Dose: 5 ml Documented by: Guaifenesin (Guaifenesin 600 Mg Tablet) 600 mg PO BID [facility] Last Admin: 03/11/20 08:12 Dose: 600 mg Documented by: Heparin Sodium (Porcine) (Heparin Injection (Vial) 5,000 Unit/Ml Vial) 5,000 unit SC Q8 [facility] Last Admin: 03/11/20 14:33 Dose: Not Given Documented by: Hydroxyzine Pamoate (Hydroxyzine Buffy 25 Mg Capsule) 25 mg PO DAILY [facility] Last Admin: 03/11/20 08:11 Dose: 25 mg Documented by: Sodium Chloride () 1,000 mls @ 0 mls/hr IV .Q0M [facility] Insulin Glargine (Insulin Glargine 100 Units/Ml Pen) 38 units SC DAILY [facility] Last Admin: 03/11/20 09:52 Dose: 38 u Documented by: Insulin Human Lispro (Insulin Lispro 100 Unit/Ml Insuln.Pen) 0 unit SC ACHS [facility]; Protocol Last Admin: 03/11/20 11:45 Dose: 2 u Documented by: Levothyroxine Sodium (Levothyroxine 112 Mcg Tablet) 112 mcg PO DAILY@0600 [facility] Last Admin: 03/11/20 06:41 Dose: 112 mcg Documented by: Magnesium Chloride (Magnesium Chloride 64 Mg Delay Rel.Tablet) 128 mg PO DAILY [facility] Last Admin: 03/11/20 08:12 Dose: 128 mg Documented by: Morphine Sulfate (Morphine 2 Mg/Ml Syringe) 2 mg IV Q3H PRN PRN PRN Reason: Pain Score 6-10 Last Admin: 03/06/20 15:00 Dose: 2 mg Documented by: Nitroglycerin (Nitroglycerin (Inpatient Use) 0.4 Mg Tab.Subl) 0.4 mg SUBLINGUAL Q5M PRN PRN Reason: CARDIAC/CHEST PAIN Nystatin (Nystatin Powder 15gm Bottle) 1 applic TOPICAL BID [facility]; Protocol Last Admin: 03/11/20 08:11 Dose: 1 applicatio Documented by: Ondansetron HCl (Ondansetron 4 Mg/2 Ml Vial) 4 mg IV Q8H PRN PRN PRN Reason: NAUSEA/VOMITING Last Admin: 03/06/20 08:16 Dose: 4 mg Documented by: Pancrelipase (Creon 24,[address] Capsule) 2 capsule PO [facility] Last Admin: 03/11/20 11:45 Dose: 2 capsule Documented by: Pantoprazole Sodium (Pantoprazole Sodium 40 Mg Tablet) 40 mg PO DAILY [facility] Last Admin: 03/11/20 08:12 Dose: 40 mg Documented by: Senna/Docusate Sodium (Senna/Docusate Sodium 1 Tablet) 2 tablet PO BID PRN PRN PRN Reason: Constipation Last Admin: 03/08/20 15:04 Dose: 2 tablet Documented by: Sodium Chloride (0.9% Saline Lock 10 Ml Syringe) 10 - 40 ml IV UD PRN PRN Reason: SALINE FLUSH Last Admin: 03/09/20 22:29 Dose: 10 ml Documented by: Sodium Chloride (0.9% Normal Saline 500 Ml Iv.Soln.) 500 ml IV BOLUS PRN PRN Reason: VASO-VAGAL PROTOCOL Ticagrelor (Ticagrelor 90 Mg Tablet) 90 mg PO BID [facility] Last Admin: 03/11/20 08:11 Dose: 90 mg Documented by: Trazodone HCl (Trazodone 100 Mg Tablet) 150 mg PO QHS [facility] Last Admin: 03/10/20 21:56 Dose: 150 mg Documented by: Discharge Diet: Low fat/ Low Cholesterol Discharge Activity: Return to Normal Activity Weight Bearing Status: Weight bearing as tolerated Call your doctor if you observe: Shortness of breath, Dizziness, Fainting spells, Swelling in the ankles, Chest pain, Increased palpitations (irregular heartbeat) Home Medications: Medications to take at Discharge Allopurinol 100 mg PO QHS 03/04/20 Divalproex Sodium 125 mg PO BID 03/04/20 Gabapentin [Neurontin] 600 mg PO TID 03/04/20 Hydrocodone/Acetaminophen [Hydrocodone-Acetamin 5-325 mg] 1 - 2 tab PO Q4H PRN PRN 03/04/20 Hydroxyzine HCl 25 mg PO DAILY 03/04/20 Insulin Glargine [Lantus SoloStar Pen] 40 units SQ QHS 03/04/20 Levothyroxine [Synthroid] 112 mcg PO DAILY 03/04/20 Lipase/Protease/Amylase [Jose Garcia 24,000 Units Capsule] 2 cap PO BIDCM 03/04/20 Pantoprazole Sodium [Protonix] 40 mg PO DAILY 03/04/20 Trazodone HCl 150 mg PO QHS 03/04/20 Triamterene 37.5MG/Hctz 25MG [Maxzide 37.5 mg-25 mg Tablet] 1 tab PO DAILY 03/04/20 Aspirin E.C. [Ecotrin] 81 mg PO DAILY@0800 #30 tab 03/11/20 Atorvastatin Calcium [Lipitor] 80 mg PO QHS #30 tab 03/11/20 Carvedilol [Coreg (Beta Scot)] 3.125 mg PO BID #60 tab 03/11/20 Magnesium Chloride [Slow-Mag] 71.5 mg PO BID #20 tablet. 03/11/20 Ticagrelor [Brilinta] 90 mg PO BID #60 tab 03/11/20 Following Prescriptions Were Given to Patient: Ticagrelor [Brilinta] 90 mg PO BID #60 tab Transmission Status: Received by [facility] Carvedilol [Coreg (Beta Scot)] 3.125 mg PO BID #60 tab Transmission Status: Received by [facility] Aspirin E.C. [Ecotrin] 81 mg PO DAILY@0800 #30 tab Transmission Status: Received by [facility] Atorvastatin Calcium [Lipitor] 80 mg PO QHS #30 tab Transmission Status: Received by [facility] Magnesium Chloride [Slow-Mag] 71.5 mg PO BID #20 tablet.dr Transmission Status: Received by [facility] Primary Care Physician: Yamila Tompkins MD [Primary Care Provider] - Please follow up with your Primary Care Physician in: 1-2 weeks Please Follow Up With: Dani Farley MD When: 2-3 weeks Patient Instructions: What Is Angina?, Ventricular Arrhythmia Medical Necessity - Tobacco Use Smoking Status: Current every day smoker Tobacco Use: Cigarettes Meaningful Use Info Meaningful Use Diagnoses (Choose all that apply): None applicable Inpatient E&M: 52575 [facility]
--- NOTE | 2020-03-11 15:04 | CASEMGMT ---
Addendum entered by Kathy Patel 03/11/20 15:19: Call back to [facility] pharmacy and per Dyllan, pt's co-pay for Brilinta is $8.95 at this time. Demarco WASHBURN CM Addendum entered by Kathy Patel 03/11/20 15:14: Per therapy, pt has not need for any further therapy at this time, but pt will have cardiac rehab set up. Demarco WASHBURN CM Original Note: Pt provided with Brilinta savings card at this time. This [facility] attempted to check Brilinta tavarez at [facility] without success at this time. Demarco WASHBURN CM
--- NOTE | 2020-03-11 15:16 | PHA.DC.MR ---
Pharmacy Service has performed discharge medication reconciliation for this patient. The patient's discharge medication list was reviewed for discrepancies and discrepancies were resolved. Home Medications Allopurinol 100 mg PO QHS 03/04/20 Divalproex Sodium 125 mg PO BID 03/04/20 Gabapentin [Neurontin] 600 mg PO TID 03/04/20 Hydrocodone/Acetaminophen [Hydrocodone-Acetamin 5-325 mg] 1 - 2 tab PO Q4H PRN PRN 03/04/20 Hydroxyzine HCl 25 mg PO DAILY 03/04/20 Insulin Glargine [Lantus SoloStar Pen] 40 units SQ QHS 03/04/20 Levothyroxine [Synthroid] 112 mcg PO DAILY 03/04/20 Lipase/Protease/Amylase [Jose Garcia 24,000 Units Capsule] 2 cap PO BIDCM 03/04/20 Pantoprazole Sodium [Protonix] 40 mg PO DAILY 03/04/20 Trazodone HCl 150 mg PO QHS 03/04/20 Triamterene 37.5MG/Hctz 25MG [Maxzide 37.5 mg-25 mg Tablet] 1 tab PO DAILY 03/04/20 Aspirin E.C. [Ecotrin] 81 mg PO DAILY@0800 #30 tab 03/11/20 Atorvastatin Calcium [Lipitor] 80 mg PO QHS #30 tab 03/11/20 Carvedilol [Coreg (Beta Scot)] 3.125 mg PO BID #60 tab 03/11/20 Magnesium Chloride [Slow-Mag] 71.5 mg PO BID #20 tablet. 03/11/20 Ticagrelor [Brilinta] 90 mg PO BID #60 tab 03/11/20
== END 2020-03-11 15:15 | disposition home or self-care (01) | DRG 247 ==
LOC: ED 15:46 → PCU 18:43
PROVIDERS: Internal Medicine; Internal Medicine Cardiovascular Disease; Physician Assistant; Specialist; Admitting Provider Hospitalist; Emergency Provider Emergency Medicine; PCP Family Medicine; Visit Provider Student in an Organized Health Care Education/Training Program
DX: I25.110 Atherosclerotic heart disease of native coronary artery with unstable angina pectoris (principal); N17.9 Acute kidney failure, unspecified; E87.2 Acidosis; I47.1 Supraventricular tachycardia; E83.42 Hypomagnesemia; E86.0 Dehydration; I95.9 Hypotension, unspecified; E11.22 Type 2 diabetes mellitus with diabetic chronic kidney disease; Z79.4 Long term (current) use of insulin; I12.9 Hypertensive chronic kidney disease with stage 1 through stage 4 chronic kidney disease, or unspecified chronic kidney disease; N18.30 Chronic kidney disease, stage 3 unspecified; Z79.899 Other long term (current) drug therapy; F17.210 Nicotine dependence, cigarettes, uncomplicated; K52.9 Noninfective gastroenteritis and colitis, unspecified; K86.89 Other specified diseases of pancreas; E03.9 Hypothyroidism, unspecified; F31.9 Bipolar disorder, unspecified; E87.6 Hypokalemia; J06.9 Acute upper respiratory infection, unspecified; M10.9 Gout, unspecified; E78.5 Hyperlipidemia, unspecified; E83.39 Other disorders of phosphorus metabolism; I49.5 Sick sinus syndrome
CPT/HCPCS: 36415; 36600; 70450; 71045; 78452; 80048; 80053; 80061; 80164; 80307; 81001; 82140; 82803; 82962; 83036; 83605; 83735; 83880; 84100; 84443; 84484; 85025; 85027; 85347; 87635; 92928; 92929; 93005; 93017; 93306; 93458; 94667; 94668; 94760; 97110; 97116; 97162; 97165; 97530; 99152; 99153; 99251; 99283; 99285; 99406; A9500; J7030; J7040; J7050; Q9957; Q9967; A4216; C1725; C1769; C1874; C1887; C1894; C8929; C9600; C9601; G0463; J2405; J2785; U0003

== ENCOUNTER → 2020-03-26 10:01 | Outpatient (CLI) | payer MEDICARE, SELFPAY ==
[2020-03-04 19:01] VITALS: BMI 26.6
--- NOTE | 2020-03-26 10:05 | CR.HP_ITS ---
CR - History & Physical - General Arrival date:: 03/26/20 Arrival time:: 10:00 Date of Referral:: 03/09/20 Date of CR Evaluation:: 03/26/20 Referring Physician: DR. ADELINA SANCHEZ Primary Diagnosis: PCI W/CORONARY STENTING - History of Present Cardiac Event Onset Date: Enter Onset Date of cardiac illnesses in Comment field below Acute Myocardial Infarction within 12 months:: Yes - NSTEMI PTCA or coronary stenting:: Yes - 03/09/2020 X 3 STENTS Type of Symptoms:: CHEST PAIN UNSPECIFIED, SHORTNESS OF BREATH THEN PAIN RADIATED TO HER ARMS AND NECK. Interventions with present event:: SYMPTOMATIC BRADYCARDIA/ ABNORMAL STRESS TEST Were there any complications?: NONE - Medications Home Medications: Ambulatory Orders Medication Instructions Recorded Allopurinol 100 mg PO QHS 03/04/20 Divalproex Sodium 125 mg PO BID 03/04/20 Gabapentin [Neurontin] 600 mg PO TID 03/04/20 Hydrocodone/Acetaminophen 1 - 2 tab PO Q4H PRN PRN 03/04/20 [Hydrocodone-Acetamin 5-325 mg] Hydroxyzine HCl 25 mg PO DAILY 03/04/20 Insulin Glargine [Lantus SoloStar 40 units SQ QHS 03/04/20 Pen] Levothyroxine [Synthroid] 112 mcg PO DAILY 03/04/20 Lipase/Protease/Amylase [Jose Garcia 2 cap PO BIDCM 03/04/20 24,000 Units Capsule] Pantoprazole Sodium [Protonix] 40 mg PO DAILY 03/04/20 Trazodone HCl 150 mg PO QHS 03/04/20 Triamterene 37.5MG/Hctz 25MG 1 tab PO DAILY 03/04/20 [Maxzide 37.5 mg-25 mg Tablet] Aspirin E.C. [Ecotrin] 81 mg PO DAILY@0800 #30 tab 03/11/20 Atorvastatin Calcium [Lipitor] 80 mg PO QHS #30 tab 03/11/20 Carvedilol [Coreg (Beta Scot)] 3.125 mg PO BID #60 tab 03/11/20 Magnesium Chloride [Slow-Mag] 71.5 mg PO BID #20 tablet. 03/11/20 Ticagrelor [Brilinta] 90 mg PO BID #60 tab 03/11/20 Nicotine [Nicoderm Cq (PBKC)] 21 mg TRANSDERM. 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 Living Will: Yes Advance Directives Information Provided: No Advance Directives on File: Yes - YES COMPLETED HERE AT [facility] DNR Order?:: No - MOLST See MOLST form: No Past Medical History - Covid-19 Screening Fever: No Unexplained muscle aches: No Current respiratory symptoms: Yes - SEASONAL ALLERGIES, CHROIC ALLERGIC RHINITIS Upper respiratory infections symptoms: No Gastro-intestinal symptoms: Yes - H/O GERD Ieb-Qvop-Avymkl symptoms: No Has tested positive for COVID-19 in last 30 days: No Had contact w/person w/symptoms or Covid-19 (+) last 14 days: No Has High Risk Exposures ID'd by Health dept/Inf Control team: No 65 years or older:: No Lives in Assisted Living facility:: No Has a chronic lung disease or moderate to severe asthma:: No Has a serious heart condition:: No Severely obese (Body Mass Index of 40 or higher):: Yes Diabetic:: Yes Has chronic kidney disease undergoing dialysis:: Yes Has liver disease:: No - Past Medical Illness Medical History: Past Medical History (Last Updated 03/10/20 @ 12:08 by Humaira Raymond) Presence of stent in coronary artery (Chronic) Onset Date: ~03/09/20 Z95.5 Successful PCI of ostial RPDA, pRCA and mLAD with GEORGINA 03/09/20 Atherosclerotic heart disease of [place] coronary artery without angina pectoris (Chronic) I25.10 - Past Surgical History Surgical History: appendectomy, cholecystectomy, hysterectomy, - - Carpal tunnel surgery. Social History - Smoking History Smoking Status: Former smoker Years Smokin Packs Smoked per Day: 2 - DOWN TO PACK RECENTLY Hx Smoking Cessation Date: 03/09/20 - USING NTR [employer] NICODERM PATCHES 21MG. Hx Tobacco Use: Yes Hx Smoking Exposure: Yes - Alcohol Use Alcohol Usage: No - Substance Abuse Hx Substance Use: No - Occupation Occupation (List type of work in comments):: Retired - Hobbies, Recreation, Social Activities Hobbies: None - TAKES CARE OF 82 YR OLD MOTHER WHO HAS ALZHEIMER'S DISEASE. Recreational Activities: I can hardly do any recreational activities Social Environment - Status Marital Status: - Current Living Arrangements Living Environment:: Family - Children How many children do you have?: 2 Do any of your children live nearby?: Yes - Safety Do you feel safe in your surroundings?: Yes - Assistance Do you need any assistance at home?: NONE Review of Systems - Review of Systems Hints: Right click = Denies (Slash). Left click = Reports ([place]) Review of Present Symptoms: Reports: Shortness of Breath at Rest, Shortness of Breath with Exertion, Appetite - Normal, Sleep - Normal. Denies: Angina, Dizziness/Lightheadedness, Heart Arrhythmia/Irregularities, Appetite - Special Diet - Pain Is Patient Pain Free?: Yes Pain Location: none Pain Level: 0/10 Risk Factor Assessment - Chief Complaint Chief Complaint: [address] ADELINA SANCHEZ'S WHO PRESENTS TO [facility] TODAY FOLLOWING [facility] WHERE SHE EXPERIENCED SYMPTOMATIC BRADYCARDIA. HSE HAD MULTIPLE CARDIOLOGY DISOGNOSTIC TEST AND SUBSEQUENTLY PCI W/CORONARY STENT. - Vital Signs Temperature: 97.3 F Respiratory Rate: 16 Pulse Ox: 97 Blood Pressure: 148/50 - Pulse Pulse Rate: 64 Pulse Rhythm: Regular - Hypertension Blood Pressure Sitting - Left Arm: 148/50 - Stress Stress: Recent - Blood Cholesterol/Lipids Total Cholesterol (mg/dL) Goal = less than 200 mg/dL: 146 - 03/08/2020 HDL Cholesterol (mg/dL) Goal = less than 40 mg/dL: 49 LDL Cholesterol (mg/dL) Goal = less than 70 mg/dL: 64 Triglycerides (mg/dL) Goal = less than 150 mg/dL: 165 - Diabetes Diabetic History: Type II Nutrition Referral for Diabetes: Yes - Obesity Height: 4 ft 11 in Weight:: 131 lb Weight in Pounds: 131.0 lbs Weight Source: Standing Scale Body Mass Index (BMI): 26.4 Nutritional Referral for Obesity: No - Physical Inactivity Physical Inactivity: Recreational activity - Risk Stratification Risk Guidelines: Lowest Risk: Risk Factor for Obesity, Risk Factor for Sedentary Lifestyle, Risk Factor for Depression, Moderate Risk: Risk Factor for Dyslipidemia, Risk Factor for Diabetes - GLUCOSE 130, A1C 6.2, Risk Factor for Hypertension - 148/50, Highest Risk: Risk Factor for Smoking - EVERDAY SMOKER RECENTLY QUIT < 2 WEEKS, USING NICODERM CQ - For Smoking Smoking Risk Guidelines: Smoking Low Risk: None or quit greater than 6 months ago. Smoking Moderate Risk: Smoker or quit 6 months or less ago. Smoking High Risk: Smoker - For Dyslipidemia Dyslipidemia Risk Guidelines: Low Risk: Moderate Risk: High Risk: 15-25% fat 25.1-29% fat >/= 30% fat. <7% sat fat 7-9% sat fat >9% sat fat. <150 mg chol 150-299 mg chol >/= 300 mg chol. LDL <100 LDL 100-129 LDL >/= 130. Chol/HDL ratio <5.0 Chol/HDL ratio 5.0-6.0 Chol/HDL ratio >6.0. Triglycerides <100 Triglycerides 100-149 Triglycerides >/= 150 - For Diabetes Mellitus Diabetes Risk Guidelines: Diabetes Low Risk: HgA1c <6.5% and/or FBG <120. Diabetes Moderate Risk: HgA1c 6.6-7.9% and/or FBG 120-180. Diabetes High Risk: HgA1c >/= 8% and/or FBG >180 - For Obesity/Overweight Obesity/Overweight Risk Guidelines: Obesity Low Risk: BMI <25.0. Obesity Moderate Risk: BMI 25-29.9. Obesity High Risk: BMI >/= 30.0 - For Hypertension Hypertension Risk Guidelines: Hypertension Low Risk: Systolic <120 and Diastolic <80. Hypertension Moderate Risk: Systolic 120-139 and Diastolic 80-89. Hypertension High Risk: Systolic >/= 140 and Diastolic >/= 90 - For Sedentary Lifestyle Sedentary Lifestyle Risk Guidelines: Sedentary Lifestyle Low Risk: >/= 1,500 kcal/week. Sedentary Lifestyle Moderate Risk: 700-1,499 kcal/week. Sedentary Lifestyle High Risk: < 700 kcal/week - For Depression Depression Risk Guidelines: Depression Low Risk: Not clinically depressed. Depression Moderate Risk: Mildly depressed. Depression High Risk: Clinically depressed Motivation - Motivation to Participate On a scale of 1 to 10, how prepared are you to commit to attending program?: 8 What do you see as barriers to successfully being able to complete the program?: MOTHER HAVING KNEE SURGERY/ MAY HAVE ISSUES WTIH HELP AT HOME. What do you see as the benefits of succesfully completing the program? In other words, what do you hope to get out of participating in the program?: HEALTHIER, LIVING LONGER, MORE ENERGY Are there issues you are dealing with that will interfere with completing the program?: CARING FOR 82 YR MOTHER WITH ALZHEIMER'S DISEASE Do you have a spouse or signficant other, family or friends who will help support you to complete the program?: YES; NEIGHBORS FAMILY BROTHERS.
--- NOTE | 2020-03-26 10:05 | CR.ITP_ITS ---
Diagnosis - General Information Admitting Diagnosis: PCI W/STENT PLACEMENT Personal Learning Style:: Audio/Visual, Written Barriers to Learning: Vision Impairment Stage of change r/t lifestyle modifications:: Action Gave educational material for:: Treating Heart Disease, Emotions & Heart Disease, Stress Management & Relaxation, Sleep Disorders & Heart Disease, How The Heart Works, What it means to have Heart Disease, How Coronary Artery Disease is Diagnosed, Heart Procedures, What Heart Medications Do, Risk Factors & Modifications, Living an Active Life, Nutrition - Education/Goals Individual Counseling: Initial Assessment: Nicotine/Smoking, Abnormal Cholesterol Levels, High Blood Pressure, Diabetes, A. Fasting Blood Sugar >100 - 130, A1C 6.2%, B. Waist Circumference >35/Females >40/Males, C. High Triglycerides >150 - TRI 164, Hypertension - 148/50, Low HDL <40/Males or <50/Females - HDL 49 Cardiac Rehabilitation Goals: 1. Maintain the individual as the primary focus of care. 2. To improve the patient's quality of life. 3. Identification of cardiac risk factors and provide cardiac risk factor management. 4. Enhance the psychosocial status of the patient. 5. Reconditioning enough to allow the patient to resume customary activities. 6. Control symptoms of cardiac disease Personal Goals: Initial Assessment: Quit smoking (participate in smoking cessation, Improve management of stress and emotions, Improve energy level, Participate in home exercise program, Improve knowledge of cardiac disease, Improve muscle strength and endurance, Improve diet and eating habits (eat healthier), Control risk factors (learn risk factor modification) Scale for measuring improvement of personal goals: Enter appropriate number in Comments. 2 = Unchanged. 3 = Slightly Better. 4 = Moderate Improvement. 5 = Met my Goal Exercise - Initial Assessment - Visit Date of Eval: 03/26/20 Session #:: 0 - PRE-CARDIAC REHAB Mets: Pre-: >5 METS for 30 minutes by discharge - Physician Prescribed Exercise Modalities: Treadmill, Airdyne, NuStep, SciFit Frequency: 3x/week for 12 weeks [36 sessions] Intensity: 60-80% of age predicted maximum heart rate reserve Current METSs:: 3.00 EKG Type: SINUS TACHYCARDIA - Outcomes & Goals Goals:: Verbalizes understanding of THR, RPE & goal METS by session 6, Documents in home exercise log/reports 30 min aerobic 5 day/wk by DC, Demonstrates accurate pulse taking by DC - Intervention & Plan Exercise Program Goals: Instruct on personal THR & RPE, Instruct on MET level & personal MET goal, Show patient to take own pulse /validate performance until accurate, Instruct on home exercise - Physical Activity Home Exercise Physical Activity - Home Exercise: Safe Exercise, Warm-up, Self-monitoring, Cool-Down, Home Exercise > 30 min Daily, Sitting Time <3 hours/daily - Outcomes & Goals Outcomes/Goals: Demonstrates correct Warm-up/exercise Cool-Down (S3) if = 2.5 METs, Verbalizes symptoms of exercise intolerance by Session 3 (S3), Demonstrate safe equipment use (S3) & follows exercise prescrition (6) - Intervention & Plan Plan/Intervention: Instruct warm-up & cool-down if exercising at > 2 METs, Instruct on symptoms of exercise intolerance & actions to take, Instruct & monitor on saf, Assess intial functional capacity & safety risk Nutrition - Initial Assessment - Program Goals Nutrition Program Goals: LDL <100 optimal. 100 - 129 Near optimal. 130 - 159 Borderline High. 160 - 189 High. Total Cholesterol <200 desirable. 200 - 239 Borderline High. >/= 240 High. HDL < 40 Low >/=60 High. Triglycerides <150 desirable. <199 optimal. VlDL 5 - 40. HgbA1C <7%. BMI <25 Patient has diagnosis of Hyperlipidemia (ICD E78)?: Yes - Visit Date of Assessment:: 03/26/20 Session #:: 0 - PRE-CARDIAC REHAB - Cholesterol/Lipids Triglycerides (mg/dL): 165 - 03/08/2020 Total Cholesterol (mg/dL): 146 LDL Cholesterol (mg/dL): 64 HDL Cholesterol (mg/dL): 49 Determine presence & major risk factors that modify LDL goal: Cigarette smoking, Hypertension or hypertensive medication, Low HDL cholesterol <40 mg/dL*, Age men > 45 years; women >/= 55 years Outcomes/Goals: Pt IDs own risk factors & lifestyle modifications by Session 10, Verbalizes symptoms of angina & response by session 3., Pt independently manages Intervention/Plan: Instruct on personal lipid levels & lipid goals/NCEP guidelines, Instruct on cholesterol Referral to dietitian:: Yes - MEDICAL NUTRITION THEREAPY and DMST & MNT for DM TYPE II - Diabetes (Other Core Measures) Diabetes Type: Diagnosis Type II ICD-10 E11 Fasting blood glucose:: 130 Hgb A1C (4.2 - 6.3): 6.2 Insulin dependent injection/pump?: Yes - GLARGINE Non-Insulin Dependent?: Yes - METFORMIN Do you monitor your blood sugar at home?: Yes Referral to Diabetic Clinic:: Yes Outcomes/Goals:: Able to state symptoms of, Able to state, Able to state Intervention/Plan:: Instruct on, Refer to, Instruct on - Weight Mgt (Other Care) Not Applicable: Yes Height: 4 ft 11 in Weight:: 131 lb BMI: 26.4 Diagnosis Overweight/Obesity BMI> 30% ICD-10 E66: No Diagnosis High BMI/Morbid Obesity BMI> 35% ICD-10 Z68: No Outcomes/Goals: Pt sets, maintains & shows weight loss goal & trend during rehab Intervention/Plan: Instruct on ideal BMI & set weight loss goal w/patient - Healthy Eating Habits Will attend diet classes:: Yes Outcomes/Goals:: Consume diet rich in vegs,fruits,whole grain/high fiber,fis h,lean meat, Limit sat/trans fats,cholesterol & added salts & sugars Intervention/Plan:: Assess current eating habits - Education Gave educational materials for:: Signs & symptoms of hypoglycemia, Signs & symptoms of hyperglycemia, Relate diabetes to coronary artery disease, Healthy eating Medical - Initial Assessment - Visit Date of Eval: 03/26/20 Session #:: 0 - PRE-CARDIAC REHAB - Medication Compliance Preventative Medication(s):: Aspirin, Ticagrelor/P2Y12 inhibitor, Statin/lipid, Beta leo H/O mental health issues: depression, anxiety, or addiction?: Yes Doesn?t believe in the benefits of treatment?: No Believes medications are unnecessary or harmful?: No Has a concern about medication side effects?: No Expresses concern over the cost of medications?: No Outcomes/Goals: Verbalizes medications,desired effect & common side effects @ DC, Pt self-reports following medication regimen, Keeps card in wallet w/medications listed by DC Interventions/plans: Instruct on medication effects & side effects, Review medication list w/patient every two weeks, Instruct importance of taking meds as ordered & assist problem solving - Tobacco Use Tobacco Use: Cigarettes How long ago did you quit using tobacco products?: Less than 6 months ago - 03/09/[address] [facility]; USING NICODERM CQ 21MG Do you use smokeless tobacco?: No Outcomes/Goals: Smoking cessation achieved or maintained by discharge, Identify aids/strategies for achieving smoking cessation by session 6 Interventions/plan: Instruct on effects of smoking & provide smoking cessation resource, Assist pt to set quit date & provide encouragement, Assist pt to develop strategies to achieve/maintain quit date, Assist pt w/nicotine replacement & medication for cessation success - Hypertension Hypertension Diagnosis:: Hypertension ICD-10 I10 Resting Blood Pressure:: 148/50 [place] [employer] Hypertension Guidelines: [place] [employer] Hypertension Guidelines. Normal BP Less than 120/80. Elevated BP 120/80. Hypertension Stage 1: BP 130-139/80-89. Hypertesnion Stage 2: BP 140 or higher/90 or higher. Hypertension Crisis: BP higher than 180/120 Outcomes/Goals: Able to verbalize/achieve optimal blood pressure <130/80, Incorporates diet changes & exercise for blood pressure control by DC Interventions/plan: Instruct on optimal blood pressure, hypertension & medications, Instruct on effects of sodium, alcohol, stress, exercise &hypertension - Tobacco Cessation Referral Smoking Cessation Referral:: Yes Individual Education/Counseling:: No Education Schedule Given:: Yes Psychosocial - Initial Assess - VIsit Date of Eval: 03/26/20 Session #:: 0 - PRE-CARDIAC REHAB Not Applicable: No History of previous Mental disease:: Yes History of Emotional Disorders: Depression, H/O Mental disease - BIPOLAR DISORDER - Target Goals Target Goals: Assess presence or absence of depression. Using a valid screening tool, maximizes coping skills. Positive support system - Psychosocial Test Tool Used:: BeverlyLivQuik QOL Cardiac, PHQ-9 Questionnaire phq-9 Severity: Severity. 1-4 Minimal Depression. 5-9 Mild Depression. 10-14 Moderate Depression. 15-19 Moderately Sever Depression. 20-27 Severe Depression. Rule: See PHQ-9 Score: 13 - MODERATE DEPRESSION INDICATED - Referral to Behavioral Health PS - Interventions: Yes Referral to Behavioral Health if PHQ-9 score >9: - RECOMMENDED CONSULT WITH BEHAVIORAL HEALTH, Yes Referral to Physician if PHQ-9 if score is 5-9: - PCP TO [facility]DER CONSULT FOR BEHAVIORAL HEALTH/ MODERATE DEPRESSION, Yes Attend Stress Management Classes, No Referral to [facility] - Outcomes/Goals: See list Psychosocial Outcomes/Goals:: ID's personal stressors & 2 strategies to manage stress by discharge - Intervention/Plan: See List Interventions/Plan:: Assess stressors,coping strategies & signs of derpression on admission, Instruct/assist pt to develop coping & personal stress Mgt strategies, Instruct patient to recognize signs & symptoms of depression, Instruct patient to recog Patient Health Questionnaire Initial Assessment 1. Little interest or pleasure in doing things: More than half the days 2. Feeling down, depressed, or hopeless: More than half the days 3. Trouble falling or staying asleep, or sleeping too much: Several days 4. Feeling tired or having little energy: Nearly every day 5. Poor appetite or overeating: Nearly every day 6. Feeling bad about yourself -- or that you are a failure or have let yourself or your family down: Several days 7. Trouble concentrating on things, such as reading the newspaper or watching television: Not at all 8. Moving or speaking so slowly that other people could have noticed. Or the opposite - being so fidgety or restless that you have been moving around a lot more than usual: Several days 9. Thoughts that you would be better off , or of hurting yourself in some way: Not at all How difficult have these problems made it for you to do your work, take care of things at home, or get along with other people?: Somewhat difficult Total Score: 13 TEOFILO-Q SV Test - Statements CAD is a disease of the arteries in the heart: False Examples of risk factors for heart disease: True Angina is chest pain or discomfort: I Don't Know The benefits of resistance training include: True Eating more meat and dairy products: False Anti-platelet medications such as aspirin are important: True The only effective way to manage stress: False An exercise warm-up slowly increases heart rate: I Don't Know Prepared, processed foods usually have high sodium: True Depression is common after a heart attack: True The statin medications lower cholesterol: True To control blood pressure, lower the amount of sodium: True If someone gets chest discomfort during walking: False Transfats are partially hydrogenated vegetable oils: True Sleep apnea that is not treated increases the risk: I Don't Know To control cholesterol, one should become a vegetarian: I Don't Know Someone knows if he/she is exercising at the right level: I Don't Know Diabetes cannot be prevented with exercise & health eating: False Stress is a large risk for heart attack: True A diet that can help lower blood pressure is rich in: True - Total Score Total Correct Responses: 15 Self-Efficacy Initial Assessment We would like to know how confident you are in doing certain activities. Please select your confidence level for:: Select your confidence level for the following using the scale 1-10 where 1 is not at all confident and 10 is totally confident. Your score is the average of all 6 responses. Fatigue: How confident are you that you can keep the fatigue caused by your disease from interfering with the things you want to do? Select Number: 3 Physical Discomfort or Pain: How confident are you that you can keep the physical discomfort or pain of your disease from interfering with the things you want to do? Select Number: 1 Emotional Distress: How confident are you that you can keep the emotional distress caused by your disease from interfering with the things you want to do? Select Number: 1 Other Symptoms or Health Problems: How confident are you that you can keep other symptoms or health problems from interfering with the things you want to do? Select Number: 1 Different Tasks and Activities: How confident are you that you can do the different tasks and activities needed to manage your health condition so as to reduce your need to see a doctor? Select Number: 2 Medication: How confident are you that you can do things other than just taking medication to reduce how much your illness affects your everyday life? Select Number: 5 Total Score:: 2 Nutrition Survey - Nutrition Survey Instructions Scoring Instructions: Scoring is as follows: Yes = 1 points. No = 0 point. Patient score that is >/=12 is considered to be at potential nutritional risk and could benefit from a referral to a registered dietitian. - Nutrition Survey Initial Have you lost >10 lbs over the past 2 months without trying?: Yes Are you following a special diet at home for diabetes, low fat, or low salt?: No Are you interested in meeting with a dietitian for help understanding your diet?: Yes Do you eat less than 3 meals a day?: Yes Do you eat fatty meats (martínez, sausage, ribs, etc), fried foods, desserts, large amounts of salad dressings, margarine, butter, or cheese most days?: Yes Do you have food allergies? [Enter types in comment field]: Yes Do you eat in restaurants more than 3 times a week?: No Do you season food with salt, seasoning salt, or garlic salt?: No Do you used canned, boxed, frozen meals, or soups, seasoning packets?: Yes - REFER TO NUTRITIONAL SERVICES NUTITIONAL THEREAPY AND DSMNT & MNT. Total Score:: 6
[2020-03-26 10:36] VITALS: BP 148/50; PULSE 64; RESP 16; TEMP 36.3; O2SAT 97; BMI 26.4
[2020-03-26 11:02] VITALS: BP 148/50; BMI 26.4
== END ==
PROVIDERS: PCP Family Medicine; Visit Provider Internal Medicine Cardiovascular Disease
DX: Z95.5 Presence of coronary angioplasty implant and graft (principal)

== ENCOUNTER → 2020-04-06 13:47 | Outpatient (CLI) | payer MEDICARE, SELFPAY ==
[2020-03-26 10:36] VITALS: BMI 26.4
[2020-03-26 11:02] VITALS: BMI 26.4
[2020-04-06 14:13] LABS: Absolute Lymphocyte Count 2.04 X10^3/uL (0.83-4.51); Absolute Neutrophil Count 6.6 X10^3/uL (2.0-7.7); Basophil# 0.08 X10^3/uL; Basophil% 0.8 % (0-1); Hematocrit 31.7 % (37-47); Hemoglobin 10.2 g/dL (12.0-15.0); Lymphocyte # 2.04 X10^3/ul (4.0); Lymphocyte % 20.3 % (19-41); Mean Corp Hgb Conc 32.2 g/dL (32-36); Mean Corpuscular Hgb 30.7 pg (27.0-32.0); Mean Corpuscular Volume 95.5 fL (81-99); Mean Platelet Vol. 8.9 fl (6.2-12.0); Monocyte# 0.82 X10^3/uL; Monocyte% 8.2 % (0-10); NRBC Flagged by Analyzer 0 % (0-5); Neutrophil # 6.63 X10^3/uL (2.7-7.7); Neutrophil % 66.1 % (47-70); Platelet Count 403 K/mm3 (150-450); RBC Distribution Width CV 14.6 % (11.6-14.6); RBC Distribution Width SD 50.5 fl (35.1-43.9); Red Blood Count 3.32 M/mm3 (4.2-5.4)
[2020-04-06 14:36] LABS: Hemoglobin A1c 6.8 % (3.8-5.6)
[2020-04-06 14:58] LABS: Color, Urine Yellow (Yellow); Glucose, Dipstick Normal (Normal); Ketone-Dipstick Negative (Negative); Leukocyte Esterase-Dipstick Negative /ul (Negative); Nitrite-Dipstick Negative (Negative); Occult Blood-Urine Negative /ul (Negative); Protein-Dipstick Negative (Negative); Urine Bilirubin Dipstick Negative (Negative); Urine Clarity Clear (Clear); Urine Urobilinogen Normal (Normal)
[2020-04-06 15:02] LABS: Vitamin B12 630 pg/mL (211-911); Vitamin D,25 Hydroxy 33.2 ng/mL
[2020-04-06 15:15] LABS: ALB/GLOB Ratio 0.8 RATIO (0.9-2.4); AST(SGOT) 8 U/L (15-37); Alanine Aminotransfer ALT/SGPT 20 U/L (13-56); Albumin, Serum 3.5 g/dL (3.2-5.0); Alkaline Phosphatase 95 U/L (45-117); Anion Gap 7 (5-15); BUN 37 mg/dL (7-18); BUN/Creat Ratio 24.3 RATIO (10-20); Calcium,Total 9.1 mg/dL (8.5-10.1); Chloride 103 mmol/L (98-107); Cholesterol 197 mg/dL (200); Creatinine, Serum 1.52 mg/dL (0.55-1.02); EST Glomerular Filtration Rate 37 mL/min (>60); Est Glom Filt Rate - Afr Amer 44 mL/min (>60); Globulin 4.3 g/dL (2.2-4.2); Glucose 116 mg/dL (74-106); High Density Lipoprotein 52 mg/dL; Magnesium 1.5 mg/dL (1.6-2.6); Potassium 4.9 mmol/L (3.5-5.1); Protein, Total 7.8 g/dL (6.4-8.2); Sodium Level 136 mmol/L (136-145); Thyroid Stim Hormone (TSH) 0.59 uIU/mL (0.358-3.74); Triglycerides 376 mg/dL; Very Low Density Lipoprotein 75 mg/dL (5-40)
== END ==
PROVIDERS: PCP Family Medicine; Visit Provider Family Medicine
DX: E11.40 Type 2 diabetes mellitus with diabetic neuropathy, unspecified (principal); E83.42 Hypomagnesemia; R30.0 Dysuria; I25.10 Atherosclerotic heart disease of native coronary artery without angina pectoris; Z95.5 Presence of coronary angioplasty implant and graft
CPT/HCPCS: 36415; 80053; 80061; 81002; 82306; 82607; 83036; 83735; 84443; 85025; 87086; 87088; 93798

== ENCOUNTER 2020-04-15 13:00 | Outpatient (RCR) | payer MEDICARE, MEDICAID, SELFPAY ==
[2020-03-26 10:36] VITALS: BMI 26.4
[2020-03-26 11:02] VITALS: BMI 26.4
== END 2020-04-20 23:59 ==
LOC: CR 13:00
PROVIDERS: PCP Family Medicine; Referring Provider Internal Medicine Cardiovascular Disease; Visit Provider Internal Medicine Cardiovascular Disease
DX: I25.10 Atherosclerotic heart disease of native coronary artery without angina pectoris (principal); Z95.5 Presence of coronary angioplasty implant and graft
CPT/HCPCS: 93798

== ENCOUNTER 2020-04-22 10:14 | Outpatient (RCR) | payer MEDICARE, SELFPAY ==
[2020-03-26 11:02] VITALS: BMI 26.4
[2020-04-15 14:39] VITALS: BMI 27.2
--- NOTE | 2020-04-24 08:52 | CR.ITP_ITS ---
Exercise - 30-day Assessment - Visit Date of Eval: 04/24/20 Session #:: 4 - Physician Prescribed Exercise Modalities: Treadmill, NuStep, SciFit Frequency: 3x/week for 12 weeks [36 sessions] Intensity: 60-80% of age predicted maximum heart rate reserve Current METSs:: 2.4 Target Heart Rate:: 102-133 Current RPE:: 12-14 Maximum Excercise HR:: 90 Resting Blood Pressure: 152/62 Maximum Exercise Blood Pressure: 170/64 - Outcomes & Goals Goals:: Verbalizes understanding of THR, RPE & goal METS by session 6, Documents in home exercise log/reports 30 min aerobic 5 day/wk by DC, Demonstrates accurate pulse taking by DC, Other additional outcome/goals: see below - Intervention & Plan Exercise Program Goals: Instruct on personal THR & RPE, Instruct on MET level & personal MET goal, Show patient to take own pulse /validate performance until accurate, Instruct on home exercise, Other additional plan/int - 30-day Reassessments 30 day Reassessments:: Progressing - Physical Activity Home Exercise Physical Activity - Home Exercise: Safe Exercise, Warm-up, Self-monitoring, Cool-Down, Home Exercise > 30 min Daily, Sitting Time <3 hours/daily - Outcomes & Goals Outcomes/Goals: Demonstrates correct Warm-up/exercise Cool-Down (S3) if = 2.5 METs, Verbalizes symptoms of exercise intolerance by Session 3 (S3), Demonstrate safe equipment use (S3) & follows exercise prescrition (6), Other: See below - Intervention & Plan Plan/Intervention: Instruct warm-up & cool-down if exercising at > 2 METs, Instruct on symptoms of exercise intolerance & actions to take, Instruct & monitor on saf, Assess intial functional capacity & safety risk, Other See below - 30-day Reassessments 30 day Reassessments:: Progressing Nutrition - 30-Day Assessment - Program Goals Nutrition Program Goals: LDL <100 optimal. 100 - 129 Near optimal. 130 - 159 Borderline High. 160 - 189 High. Total Cholesterol <200 desirable. 200 - 239 Borderline High. >/= 240 High. HDL < 40 Low >/=60 High. Triglycerides <150 desirable. <199 optimal. VlDL 5 - 40. HgbA1C <7%. BMI <25 Patient has diagnosis of Hyperlipidemia (ICD E78)?: Yes - Visit Date of Assessment:: 04/24/20 Session #:: 4 - Cholesterol/Lipids Determine presence & major risk factors that modify LDL goal: Cigarette smoking, Hypertension or hypertensive medication, Low HDL cholesterol <40 mg/dL*, Family history of premature CHD in Male < 55 years: female <65 yearsFa, Age men > 45 years; women >/= 55 years Outcomes/Goals: Pt IDs own risk factors & lifestyle modifications by Session 10, Verbalizes symptoms of angina & response by session 3., Pt independently manages, Other Additional Outcomes/Goals: Intervention/Plan: Advocate for lipid panel cholesterol medication if applicable, Instruct on personal lipid levels & lipid goals/NCEP guidelines, Instruct on cholesterol, Other additional plan/int 30-day Reassessments:: Progressing - Diabetes (Other Core Measures) Diabetes Type: Diagnosis Type II ICD-10 E11 Insulin dependent injection/pump?: Yes - GLARGINE Non-Insulin Dependent?: Yes - METFORMIN Do you monitor your blood sugar at home?: Yes Referral to Diabetic Clinic:: Yes Outcomes/Goals:: Able to state symptoms of, Able to state, Able to state, Other additional Intervention/Plan:: Instruct on, Refer to, Instruct on, Other 30-day Reassessments:: Progressing - Weight Mgt (Other Care) Not Applicable: No Height: 4 ft 11 in Weight:: 59.421 kg BMI: 26.4 Diagnosis Overweight/Obesity BMI> 30% ICD-10 E66: No Diagnosis High BMI/Morbid Obesity BMI> 35% ICD-10 Z68: No Outcomes/Goals: Pt sets, maintains & shows weight loss goal & trend during rehab, Other additional outcomes/goals Intervention/Plan: Instruct on ideal BMI & set weight loss goal w/patient, Assist pt to ID & incorporate diet changes for weight loss by S9, Refer to Structured Weight Loss program as appropriate, Encourage goal of using 250- 300dcal per session for weight loss, Other additional plan/interventions 30 day Reassessments:: Progressing - Healthy Eating Habits Will attend diet classes:: Yes Outcomes/Goals:: Consume diet rich in vegs,fruits,whole grain/high fiber,fish,lean meat, Limit sat/trans fats,cholesterol & added salts & sugars, Other additional outcome/goals: 30-day Reassessments:: Progressing Medical- 30-Day Assessment - Visit Date of Eval: 04/24/20 Session #:: 4 - Medication Compliance Preventative Medication(s):: Aspirin, Ticagrelor/P2Y12 inhibitor, Statin/lipid, Beta leo H/O mental health issues: depression, anxiety, or addiction?: Yes Doesn?t believe in the benefits of treatment?: No Believes medications are unnecessary or harmful?: No Has a concern about medication side effects?: No Outcomes/Goals: Verbalizes medications,desired effect & common side effects @ D C, Pt self-reports following medication regimen, Keeps card in wallet w/medications listed by DC, Other additional outcome/goals: Interventions/plans: Instruct on medication effects & side effects, Review medication list w/patient every two weeks, Instruct importance of taking meds as ordered & assist problem solving, Other additional 30-day Reassessments:: Progressing - Tobacco Use Tobacco Use: Cigarettes How long ago did you quit using tobacco products?: Less than 6 months ago - 03/09/2020 Do you use smokeless tobacco?: No Outcomes/Goals: Smoking cessation achieved or maintained by discharge, Identify aids/strategies for achieving smoking cessation by session 6, Other additional outcome/goals Interventions/plan: Instruct on effects of smoking & provide smoking cessation resource, Assist pt to set quit date & provide encouragement, Assist pt to develop strategies to achieve/maintain quit date, Assist pt w/nicotine replacement & medication for cessation success, Other additional plan/interventions 30-day Reassessments:: Progressing - Hypertension Hypertension Diagnosis:: Hypertension ICD-10 I10 Resting Blood Pressure:: 152/62 [employer] Hypertension Guidelines: [employer] Hypertension Guidelines. Normal BP Less than 120/80. Elevated BP 120/80. Hypertension Stage 1: BP 130-139/80-89. Hypertesnion Stage 2: BP 140 or higher/90 or higher. Hypertension Crisis: BP higher than 180/120 Peak Exercise Blood Pressure:: 170/64 Outcomes/Goals: Able to verbalize/achieve optimal blood pressure <130/80, Incorporates diet changes & exercise for blood pressure control by DC, Other additional outcomes/goals Interventions/plan: Instruct on optimal blood pressure, hypertension & medications, Instruct on effects of sodium, alcohol, stress, exercise &hypertension, Other additional plan/interventions 30 day Reassessments:: Progressing - Tobacco Cessation Referral Smoking Cessation Referral:: Yes Individual Education/Counseling:: No Education Schedule Given:: Yes Psychosocial - 30-Day Assess - VIsit Date of Eval: 04/24/20 Session #:: 4 History of previous Mental disease:: Yes History of Emotional Disorders: Depression, H/O Mental disease - BIPOLAR - Target Goals Target Goals: Assess presence or absence of depression. Using a valid screening tool, maximizes coping skills. Positive support system - Psychosocial Test phq-9 Severity: Severity. 1-4 Minimal Depression. 5-9 Mild Depression. 10-14 Moderate Depression. 15-19 Moderately Sever Depression. 20-27 Severe Depression. Rule: - Referral to Behavioral Health PS - Interventions: Yes Referral to Behavioral Health if PHQ-9 score >9:, Yes Referral to Physician if PHQ-9 if score is 5-9:, Yes Attend Stress Management Classes - Outcomes/Goals: See list Psychosocial Outcomes/Goals:: ID's personal stressors & 2 strategies to manage stress by discharge, Other Additional outcome/goals: - Intervention/Plan: See List Interventions/Plan:: Assess stressors,coping strategies & signs of derpression on admission, Instruct/assist pt to develop coping & personal stress Mgt strategies, Refer to Behavioral Health if appropriate, Refer to Physician if appropriate, Instruct patient to recognize signs & symptoms of depression, Instruct patient to recog, Other additional plan/intervention - 30-day Reassessments: 30 day Reassessments:: Progressing Patient Health Questionnaire 30-Day Re-eval Assessment 1. Little interest or pleasure in doing things: More than half the days 2. Feeling down, depressed, or hopeless: More than half the days 3. Trouble falling or staying asleep, or sleeping too much: Several days 4. Feeling tired or having little energy: Nearly every day 5. Poor appetite or overeating: Several days 6. Feeling bad about yourself -- or that you are a failure or have let yourself or your family down: Not at all 7. Trouble concentrating on things, such as reading the newspaper or watching television: Not at all 8. Moving or speaking so slowly that other people could have noticed. Or the opposite - being so fidgety or restless that you have been moving around a lot more than usual: Several days 9. Thoughts that you would be better off , or of hurting yourself in some way: Not at all How difficult have these problems made it for you to do your work, take care of things at home, or get along with other people?: Somewhat difficult Total Score: 10 Self-Efficacy 30-Day Re-eval Assessment We would like to know how confident you are in doing certain activities. Please select your confidence level for:: Select your confidence level for the bruno gaines using the scale 1-10 where 1 is not at all confident and 10 is totally confident. Your score is the average of all 6 responses. Fatigue: How confident are you that you can keep the fatigue caused by your disease from interfering with the things you want to do? Select Number: 3 Physical Discomfort or Pain: How confident are you that you can keep the physical discomfort or pain of your disease from interfering with the things you want to do? Select Number: 1 Emotional Distress: How confident are you that you can keep the emotional distress caused by your disease from interfering with the things you want to do? Select Number: 1 Other Symptoms or Health Problems: How confident are you that you can keep other symptoms or health problems from interfering with the things you want to do? Select Number: 1 Different Tasks and Activities: How confident are you that you can do the different tasks and activities needed to manage your health condition so as to reduce your need to see a doctor? Select Number: 2 Medication: How confident are you that you can do things other than just taking medication to reduce how much your illness affects your everyday life? Select Number: 5 Total Score:: 2
[2020-04-24 09:04] VITALS: BP 152/62; BP 170/64; BMI 26.4
== END 2020-05-21 23:59 ==
LOC: CR 10:14
PROVIDERS: PCP Family Medicine; Referring Provider Internal Medicine Cardiovascular Disease; Visit Provider Internal Medicine Cardiovascular Disease
DX: I25.10 Atherosclerotic heart disease of native coronary artery without angina pectoris (principal); Z95.5 Presence of coronary angioplasty implant and graft
CPT/HCPCS: 93798

== ENCOUNTER 2020-05-23 15:29 | Inpatient (IN) | payer MEDICARE, MEDICAID, SELFPAY ==
[2020-05-13 14:05] VITALS: BMI 27.2
[2020-05-23] VITALS (9 sets, daily range): BP systolic 111–157; BP diastolic 50–76; PULSE 62–68; RESP 15–20; TEMP 35.8–36.3; O2SAT 96–100; BMI 27.2; BMI 27.0
--- NOTE | 2020-05-23 16:20 | ED.VISSUMM ---
- ER Visit Summary Date of Service: 05/23/20 Chief Complaint: Chills with nausea, vomiting and diarrhea History of Present Illness: The patient is a 64 F history of insulin-dependent diabetes, anemia, CAD with OR with cardiac stents hypertension, renal insufficiency and COPD. She had a prior appendectomy, cholecystectomy and total hysterectomy. Patient had a cardiac cath with 3 stents. States that on New Year's Radha she just felt tired and generally weak with body aches and chills. No fever. Says she has had nausea and vomiting she has chronic diarrhea. Denies any dysuria. No hematuria nor melena. No hematemesis. Denies any cough or shortness of breath. Really denies any new or changed abdominal pain. Physical Examination: Well-appearing female vital signs stable afebrile. Pulse ox 90% room air no signs hypoxia. No distress. H EENT exam unremarkable. Moist with members. Neck nontender no lymphadenopathy. Lungs clear to auscultation bilaterally. Heart regular rhythm no murmur. Rate about 70. Chest were nontender. Abdomen soft nondistended normal bowel sounds no peritoneal signs. Multiple well-healed surgical scars. No signs of obstruction. No distention no tympany. Normal bowel sounds. Extremities moves all 4. Calves nontender without edema or cords. Neurologically she is awake alert with no focal motor deficits. Test Results: CBC shows a white count 11.2. Hemoglobin 11.7 which is baseline. No bands. Chemistries sodium 135. Gap of 12. BUN of 49 creatinine 2.28 consistent with dehydration and acute kidney injury. Last creatinine 1.5. Liver enzymes lipase were both normal. UA unremarkable 5-10 epithelial cells no nitrates no white cells. Lactic acid elevated 2.4. Chest x-ray portable 1 view read by myself shows no acute abnormality. Also read by the radiologist and agrees. Emergency Department Course and Treatment: Patient treated with IV fluids and IV Zofran for the nausea. Screening labs are being obtained. She will be given a second liter normal saline IV. And Tylenol for pain. ED exam patient doing well at 7:57 PM. Abdomen is benign. She and I discussed her test results. Treatment Plan: Admission for IV fluids. Disposition: Admission Impression: Acute nausea, vomiting and diarrhea Acute dehydration with acute kidney injury History of CAD with cardiac stents History of diabetes. This note was generated with Dragon dictation software. It may contain incorrect words, spelling, and punctuation that were not noted in review of the chart prior to signing ED Disposition - Plan for ED Patient: Referrals: Yamila Tompkins MD [Primary Care Provider] -
[2020-05-23 16:36] LABS: Absolute Lymphocyte Count 1.93 X10^3/uL (0.83-4.51); Absolute Neutrophil Count 8.5 X10^3/uL (2.0-7.7); Basophil# 0.05 X10^3/uL; Basophil% 0.4 % (0-1); Eosinophils% 1.8 % (0-5); Hematocrit 36.3 % (37-47); Hemoglobin 11.7 g/dL (12.0-15.0); Lymphocyte # 1.93 X10^3/ul (4.0); Lymphocyte % 17.2 % (19-41); Mean Corp Hgb Conc 32.2 g/dL (32-36); Mean Corpuscular Hgb 30.1 pg (27.0-32.0); Mean Corpuscular Volume 93.3 fL (81-99); Mean Platelet Vol. 9.4 fl (6.2-12.0); Monocyte# 0.47 X10^3/uL; Monocyte% 4.2 % (0-10); NRBC Flagged by Analyzer 0 % (0-5); Neutrophil # 8.53 X10^3/uL (2.7-7.7); Neutrophil % 75.9 % (47-70); Platelet Count 530 K/mm3 (150-450); RBC Distribution Width CV 14.8 % (11.6-14.6); RBC Distribution Width SD 50.8 fl (35.1-43.9); Red Blood Count 3.89 M/mm3 (4.2-5.4); White Blood Count 11.2 K/mm3 (4.4-11.0)
--- NOTE | 2020-05-23 16:42 | RAD_ITS ---
STUDY: X-RAY CHEST REASON FOR EXAM: Female, 64 years old. weakness, increased pain, achy x2 days. n/v/d started monday. TECHNIQUE: AP COMPARISON: 03/04/2020 FINDINGS: The lungs are clear and expanded. There is no demonstrated pleural abnormality. Normal size heart. Normal mediastinum and rita. Normal visualized pulmonary arteries. Normal visualized aortic arch and descending thoracic aorta. Normal visualized thoracic spine. Normal visualized ribs, clavicles, and shoulders. There is no demonstrated abnormality of the visualized soft tissue structures of the upper abdomen. RAD/Chest 1 View (Portable) IMPRESSION: Stable, nonacute portable x-ray examination of the chest. Electronically Signed: Yohan Carpenter MD ([place]) at 17:01 EST , Service support ,
[2020-05-23 16:45] LABS: AST(SGOT) 6 U/L (15-37); Alanine Aminotransfer ALT/SGPT 19 U/L (13-56); Albumin, Serum 3.9 g/dL (3.2-5.0); Alkaline Phosphatase 85 U/L (45-117); Anion Gap 12 (5-15); BUN 49 mg/dL (7-18); BUN/Creat Ratio 21.5 RATIO (10-20); Calcium,Total 9.5 mg/dL (8.5-10.1); Chloride 103 mmol/L (98-107); Creatinine, Serum 2.28 mg/dL (0.55-1.02); EST Glomerular Filtration Rate 23 mL/min (>60); Est Glom Filt Rate - Afr Amer 28 mL/min (>60); Estimated Creatinine Clearance 24.41 ml/min; Globulin 4.1 g/dL (2.2-4.2); Glucose 154 mg/dL (74-106); Lipase 34 U/L (73-393); Potassium 5.1 mmol/L (3.5-5.1); Sodium Level 135 mmol/L (136-145)
[2020-05-23] MEDS: Ondansetron 4 MG/2 ML Vial IV (16:51)
[2020-05-23] MEDS: 0.9% Normal Saline 1,000 ML 1000 ML IV (16:51)
[2020-05-23 17:01] LABS: Red Blood Cells-Urine 0 SEEN /hpf (0-5); White Blood Cells 0 SEEN /hpf (0-5)
[2020-05-23 17:11] LABS: Color, Urine Yellow (Yellow); Glucose, Dipstick Normal (Normal); Ketone-Dipstick Negative (Negative); Leukocyte Esterase-Dipstick Negative /ul (Negative); Nitrite-Dipstick Negative (Negative); Occult Blood-Urine Negative /ul (Negative); Protein-Dipstick Negative (Negative); Urine Bilirubin Dipstick Negative (Negative); Urine Clarity Sl. Cloudy (Clear); Urine Urobilinogen Normal (Normal)
[2020-05-23 17:14] LABS: Lactic Acid 2.4 mmol/L (0.4-1.9)
--- NOTE | 2020-05-23 17:15 | ED.RN ---
DR ECHAVARRIA NOTIFIED LACTIC=2.4. NNO VOICED
[2020-05-23 17:19] LABS: Bacteria RARE /hpf (None Seen); Mucous, Urine RARE /hpf (<or=2+); Squamous Epithelial Cells - UA 5-10 SEEN /hpf (5-10)
--- NOTE | 2020-05-23 20:10 | HP.PCM_ITS ---
Problem List (1) Acute kidney injury superimposed on chronic kidney disease Status: Acute (2) Lactic acidosis Status: Acute (3) Chronic pancreatic insufficiency Status: Acute (4) Presence of stent in coronary artery Status: Chronic Comment: Successful PCI of ostial RPDA, pRCA and mLAD with GEORGINA 03/09/20 (5) Atherosclerotic heart disease of [place] coronary artery without angina pectoris Status: Chronic Qualifiers: [place] vs. transplanted heart: [place] heart Qualified Code(s): I25.10 - Atherosclerotic heart disease of [place] coronary artery without angina pectoris (6) Hyperlipidemia Status: Chronic Qualifiers: Hyperlipidemia type: unspecified Qualified Code(s): E78.5 - Hyperlipidemia, unspecified (7) Type 2 diabetes mellitus Status: Chronic Qualifiers: Diabetes mellitus manager terminal insulin use: with manager terminal use Diabetes mellitus complication status: with other specified complication Qualified Code(s): E11.69 - Type 2 diabetes mellitus with other specified complication; 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 (8) Hypothyroidism Status: Chronic Qualifiers: Hypothyroidism type: unspecified Qualified Code(s): E03.9 - Hypothyroidism, unspecified (9) Hypertension Status: Chronic Qualifiers: Hypertension type: essential hypertension Qualified Code(s): I10 - Essential (primary) hypertension (10) Bipolar disorder Status: Chronic Qualifiers: Active/Remission status: remission status unspecified Qualified Code(s): F31.9 - Bipolar disorder, unspecified (11) Depression Status: Chronic Qualifiers: Depression Type: unspecified Qualified Code(s): F32.9 - Major depressive disorder, single episode, unspecified History of Present Illness Date of Admission: 05/23/20 Chief Complaint: Debility, pain, myalgia, N/V/D The patient is a 64 y/o F w/ PMHx: Chronic diarrhea secondary to Chronic Pancreatic Insufficiency, Chronic normocytic anemia, CAD s/p PCI ostial RPDA, proximal RCA, mid LAD, Hypothyroidism, HTN, HLD, GERD, Hypothyroidism, Suspected TAMMI, Fibromyalgia with chronic pain, CKD stage III, Diabetes mellitus type II, Gout, Chronic COPD who presents to the [facility] ED on 05/23/19 with history of onset severe fatigue, malaise, body aches, nausea, emesis, diarrhea with associated concurrent chills starting the Monday prior and not improving, worsening. Patient notes that she literally spends nearly the whole day in the bathroom secondary to ongoing diarrhea. She notes inability to maintain appropriate oral intake. Patient does admit that she has not been taking her Creon as she had a significantly elevated dose and following initiation had no further bowel m ovements and was constipated but she did not contact the physician who initiated this prior and update them on this result. She does not follow with GI at all for her pancreatic insufficiency but notes that she has seen no medicine. Work- up in the ED included a 6.4, heart rate 68, BP 157/74, respiratory rate 16, initially her percent on 4 L however appeared to improve to 90% on room air, CBC with WC 11.2, hemoglobin 1.7, platelet 530 with left shift, lactic acid 2.4, CMP with sodium 135, carbon oxide 20, BUN/creatinine 49/2.28, glucose 154, lipase 34, urinalysis unremarkable aside specific [place] elevated 1.020, SARS Covid rapid antigen negative, chest x-ray with no acute cardiopulmonary findings. In the ED patient answered Zofran and normal saline. Past Medical History Past Medical History (Chronic Problems): Chronic Problems (Last Reviewed 05/13/20 @ 14:16 by Humaira MUNOZ, PA) Presence of stent in coronary artery (Chronic ~03/09/20) Successful PCI of ostial RPDA, pRCA and mLAD with GEORGINA 03/09/20 Atherosclerotic heart disease of [place] coronary artery without angina pectoris (Chronic) Hyperlipidemia (Chronic) Type 2 diabetes mellitus (Chronic) Hypothyroidism (Chronic) Hypertension (Chronic) Bipolar disorder (Chronic) Depression (Chronic) Medical History: Medical History (Last Reviewed 05/13/20 @ 14:16 by Humaira MUNOZ, PA) Presence of stent in coronary artery (Chronic) Onset Date: ~03/09/20 Z95.5 Successful PCI of ostial RPDA, pRCA and mLAD with GEORGINA 03/09/20 Atherosclerotic heart disease of [place] coronary artery without angina pectoris (Chronic) I25.10 Allergies duloxetine [From Cymbalta] Allergy (Verified 05/23/20 15:30) Itching tomato Allergy (Verified 05/23/20 15:30) Itching Home Medications: Ambulatory Orders Medication Instructions Recorded Allopurinol 100 mg PO QHS 03/04/20 Divalproex Sodium 125 mg PO BID 03/04/20 Gabapentin [Neurontin] 600 mg PO TID 03/04/20 Hydroxyzine HCl 25 mg PO DAILY PRN PRN 03/04/20 Insulin Glargine [Lantus SoloStar 40 units SQ QHS 03/04/20 Pen] Levothyroxine [Synthroid] 112 mcg PO DAILY 03/04/20 Pantoprazole Sodium [Protonix] 40 mg PO DAILY 03/04/20 Trazodone HCl 150 mg PO QHS 03/04/20 Aspirin E.C. [Ecotrin] 81 mg PO DAILY@0800 #30 tab 03/11/20 atorvastatin 80 mg tablet 80 mg PO QHS #90 tab 04/06/20 carvedilol 3.125 mg tablet 3.125 mg PO BID #180 tab 04/06/20 ticagrelor 90 mg tablet 90 mg PO BID #180 tab 04/06/20 amlodipine 2.5 mg tablet 2.5 mg PO DAILY #90 tab 05/13/20 losartan 100 mg tablet 100 mg PO DAILY #90 tab 05/13/20 metformin 500 mg tablet 1,000 mg PO BID 05/13/20 triamterene 37.5 1 tab PO DAILY #90 tab 05/13/20 mg-hydrochlorothiazide 25 mg tablet Surgical History: Surgical History (Last Updated 05/13/20 @ 14:18 by Humaira MUNOZ, PA) History of laparoscopic appendectomy Z90.49 History of total abdominal hysterectomy Z90.710 Hx of cholecystectomy Z90.49 Hx of shoulder surgery Z98.890 Surgical History: appendectomy, cholecystectomy, hysterectomy, - - Carpal tunnel surgery. 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 Smoking Status: Current every day smoker - Patient with ongoing 1/2 pack/day cigarette tobacco usage starting when she was a teenager although she did quit in 1981 and pick back up again Tobacco Use: Cigarettes Alcohol: None Drugs: None - *Family History Maternal History Items: COPD - Secondary to secondhand tobacco use., Dementia - Mother with history of Alzheimer's dementia. Paternal History Items: Diabetes, High Cholesterol, Heart Disease, Hypertension Review of Systems Constitutional: Reports: Anorexia, Chills, Malaise, Weakness, Fatigue. Denies: Fever, Weight Change HEENT: Denies: Head Aches, Sinus Congestion, Sinus Drainage Cardiovascular: Denies: Chest Pain, Palpitations Respiratory: Denies: Cough, Shortness of breath at rest, Sputum production Gastrointestinal: Reports: Diarrhea, Nausea, Vomiting. Denies: Abdominal Pain Genitourinary: Denies: Dysuria Musculoskeletal: Reports: Back Pain, Joint Pain. Denies: Joint Tenderness Skin: Denies: Rash, Wounds Neurological: Denies: Numbness, Tingling, Focal weakness Psychiatric: Reports: Anxiety, Depression. Denies: Homicidal Ideations, Suicidal Ideations Hematologic/ Lymphatic: Reports: Easy Bruising, Easy Bleeding VTE Information - Inpt Only VTE Present on Admission: No VTE Mechan Device Prophylaxis: SCD's VTE Pharm Prophylaxis ordered?: Yes Patient Problems: Active and Suspected Problems (Last Reviewed 05/13/20 @ 14:16 by Humaira MUNOZ, PA) Lactic acidosis (Acute) Acute kidney injury superimposed on chronic kidney disease (Acute) Chronic pancreatic insufficiency (Acute) Subjective: Patient seated upright in the ED bed, fatigued, ill-appearing, no acute distress currently. Objective: Physical Examination: General: awake, alert, oriented x 3 and cooperative, seated upright in the ED bed, fatigued appearing, no acute distress. Skin: normal color, turgor, no icterus, cyanosis. HEENT: AT/NC, EOMI, PERRLA, dry MM, no carotid bruits or JVD noted. Lungs: Diminished breath sounds, greater bases, moderate effort, no rales, kitty chi or wheezing. Heart: Regular rate and rhythm; no gallop, rub audible. Abdomen: soft, mild generalized discomfort with palpation but no rebound or guarding, ND, moderately hyperactive BS, no HSM. Extremities: no cyanosis, clubbing, or edema. Neurological: patient awake, alert, oriented as noted; cognitive function intact; pupils equally reactive to light and accomodation; cranial nerves II-XII grossly normal, moving all 4 extremities, no focal deficits, strength moderately global decrease secondary to acute presentation. Psychiatric: affect appears fatigued otherwise normal, no acute evidence of depressive or anxiety feelings. - Physical Exam Vitals/I&O's: Vital Signs Temp Pulse Resp BP Pulse Ox 96.4 F L 63 17 119/58 L 97 05/23/20 15:30 05/23/20 19:09 05/23/20 19:09 05/23/20 19:09 05/23/20 19:09 Oxygen Flow Rate (L/min) 4 Oxygen Delivery Method Room Air Weight: 135 lb Body Mass Index (BMI) 27.2 Intake and Output for Last 24 Hours 05/21/20 05/22/20 05/23/20 23:59 23:59 23:59 Intake Total 1000 / 1000 Balance 1000 / 1000 Microbiology Past 72 Hours 05/23/20 16:55 Mucosa - Nose SARS-CoV-2 Antigen (Rapid) - Final Laboratory Results 05/23/20 15:35: WBC 11.2 H, RBC 3.89 L, Hgb 11.7 L, Hct 36.3 L, MCV 93.3, MCH 30.1, MCHC 32.2, RDW Std Deviation 50.8 H, RDW Coeff of Yaw 14.8 H, Plt Count 53 0 H, MPV 9.4, Immature Gran % (Auto) 0.500, Neut % (Auto) 75.9 H, Lymph % (Auto) 17.2 L, [place] % (Auto) 4.2, Eos % (Auto) 1.8, Baso % (Auto) 0.4, Absolute Neuts (auto) 8.5 H, Absolute Lymphs (auto) 1.93, Nucleated RBC % 0 05/23/20 15:35: Sodium 135 L, Potassium 5.1, Chloride 103, Carbon Dioxide 20.0 L , Anion Gap 12, BUN 49 H, Creatinine 2.28 H, Estim Creat Clear Calc 24.41, Est GFR (MDRD) Af Amer 28 L, Est GFR (MDRD) Non-Af 23 L, BUN/Creatinine Ratio 21.5 H , Glucose 154 H, Calcium 9.5, Total Bilirubin 0.40, AST 6 L, ALT 19, Alkaline Phosphatase 85, Total Protein 8.0, Albumin 3.9, Globulin 4.1, Albumin/Globulin Ratio 1.0, Lipase 34 L 05/23/20 16:27: Lactic Acid 2.4 H* 05/23/20 16:50: Urine Color Yellow, Urine Clarity Sl. Cloudy, Urine pH 5.0, Ur Specific [place] 1.020, Urine Protein Negative, Urine Glucose (UA) Normal, Urine Ketones Negative, Urine Occult Blood Negative, Urine Nitrite Negative, Urine Bilirubin Negative, Urine Urobilinogen Normal, Ur Leukocyte Esterase Negative, Urine RBC 0 SEEN, Urine WBC 0 SEEN, Ur Squamous Epith Cells 5-10 SEEN, Urine Bacteria RARE, Urine Mucus RARE Assessment/Plan All Active Problems (Last Reviewed 05/13/20 @ 14:16 by Humaira Bae PA, PA) Hypotension (Acute) Abnormal stress test (Acute) Dehydration (Acute) Lactic acidosis (Acute) Hypomagnesemia (Acute) Acute kidney injury superimposed on chronic kidney disease (Acute) Symptomatic bradycardia (Acute) Chronic pancreatic insufficiency (Acute) The patient is a 64 y/o F w/ PMHx: Chronic diarrhea secondary to Chronic Pancreatic Insufficiency, Chronic normocytic anemia, CAD s/p PCI ostial RPDA, proximal RCA, mid LAD, Hypothyroidism, HTN, HLD, GERD, Hypothyroidism, Suspected TAMMI, Fibromyalgia with chronic pain, CKD stage III, Diabetes mellitus type II, Gout, Chronic COPD who presents to the [facility] ED on 05/23/19 with history of onset severe fatigue, malaise, body aches, nausea, emesis, diarrhea with associated concurrent chills starting the Monday prior and not improving, worsening. 1. N/V/D, ? Gastroenteritis versus Untreated Chronic Pancreatic Insufficiency: COVID negative, labs with [place], [place] elevated 2.4 despite ED IVFs, will admit MS, will continue aggressive hydration, will obtain c diff, stool cx to be cautious although do suspect likely patient's chronic pancreatic insufficiency, she had previously been on Creon but discontinued this as she notes the amount she had been on resulted in no bowel movement, will decrease but strongly encouraged her to continue this, will allow clear liquids and advance diet as tolerated, as needed pain, nausea regimen.. 2. Acute kidney injury on CKD stage III: Secondary to acute presentation as noted with GI losses. Admission BUN/Cr [], prior baseline creatinine noted to be 0.9-1 primarily although 04/06/2020 did increase to 1.5 to, will continue judicious hydration, hold nephrotoxic medications, if not improving would obtain FeNa assessment renal ultrasound expect with hydration renal normalization. 3. Diabetes mellitus type II: Hold oral home regimen, continue home insulin regimen with potential for decreasing dose by one half if no oral intake, allow clears with advancement once improved to ADA diet, Actos with insulin sliding scale. 4. CAD: Status post PCI x3, continue aspirin, Bentyl, statin, Coreg, holding losartan temporarily given [place], resume once improved. 5. Hypertension: Continue home regimen including amlodipine, Coreg, holding patient losartan and triamterene/hydrochlorothiazide temporarily given [place] as noted, resume once appropriate, PRN hydralazine. 6. Hyperlipidemia: Continue home statin regimen. 7. Hypothyroidism: Continue home synthroid regimen. 8. Chronic normocytic anemia: Admission hemoglobin 11.7, baseline appears 9-10, stable, trend. 9. Suspected TAMMI: CPAP w HS if nausea/emesis resolved. 10. Anxiety depression/bipolar disorder: We will continue patient home Depakote and nightly trazodone, encourage continued follow-up. 11. Tobacco Abuse: Encouraged cessation, inpatient consultation per RT, NR if desired. 12. Gout: We will continue patient home allopurinol regimen. 13. COPD: Not on scheduled inhalers, encourage head of bed, I-S, as needed albuterol. 14. GERD: We will continue PPI. 15. DVT prophylaxis: SCDs, heparin. Inpatient E&M: 58431 Init Hosp L3
[2020-05-23] MEDS: Acetaminophen 500 MG Tablet 1000 MG PO (20:28)
[2020-05-23] MEDS: 0.9% Normal Saline 1,000 ML 999 ML IV (20:31)
[2020-05-23 20:34] LABS: Reflex Lactate? Y
--- NOTE | 2020-05-23 20:50 | ED.RN ---
repeat lactic acid sent.
[2020-05-23 21:29] LABS: Magnesium 1.3 mg/dL (1.6-2.6)
[2020-05-23] MEDS: 0.9% Normal Saline 1,000 ML 150 ML IV (21:36)
[2020-05-23 21:48] LABS: Lactic Acid 2.2 mmol/L (0.4-1.9)
[2020-05-23 22:11] LABS: Bedside Glucose 68 mg/dL (70-110)
[2020-05-23] MEDS: TICAGRELOR 90 MG TABLET PO (22:33)
[2020-05-23] MEDS: Carvedilol 3.125 MG TABLET PO (22:33)
[2020-05-23] MEDS: Divalproex Sodium 125 MG SPRINKLE PO (22:34)
[2020-05-23] MEDS: traZODone 100 MG Tablet 150 MG PO (22:34)
[2020-05-23] MEDS: Heparin Injection (Vial) 5,000 UNIT/ML VIAL 5000 UNIT SC (22:35)
[2020-05-23] MEDS: Atorvastatin Calcium 80 MG Tablet PO (22:35)
[2020-05-23] MEDS: Allopurinol 100 MG Tablet PO (22:35)
[2020-05-23] MEDS: Gabapentin 600 MG Tablet PO (22:36)
[2020-05-23] MEDS: Dextrose 5%/0.9% NaCl 1,000 ML 150 ML IV (22:37)
[2020-05-23] MEDS: oxyCODONE 5 MG Tablet PO (22:37)
[2020-05-24] VITALS (7 sets, daily range): BP systolic 96–119; BP diastolic 43–68; PULSE 49–64; RESP 16–20; TEMP 36.4–36.6; O2SAT 96–100
[2020-05-24] MEDS: Acetaminophen 325 MG Tablet 650 MG PO ×2 (04:18→20:25)
[2020-05-24] MEDS: Dextrose 5%/0.9% NaCl 1,000 ML 150 ML IV ×2 (05:11→11:16)
[2020-05-24] MEDS: Levothyroxine 112 MCG Tablet PO (05:59)
[2020-05-24] MEDS: Gabapentin 600 MG Tablet PO ×3 (05:59→22:49)
[2020-05-24 06:32] LABS: Absolute Lymphocyte Count 2.65 X10^3/uL (0.83-4.51); Absolute Neutrophil Count 4.2 X10^3/uL (2.0-7.7); Basophil# 0.05 X10^3/uL; Basophil% 0.7 % (0-1); Eosinophils% 3.9 % (0-5); Hematocrit 27.3 % (37-47); Hemoglobin 8.7 g/dL (12.0-15.0); Lymphocyte # 2.65 X10^3/ul (4.0); Lymphocyte % 34.6 % (19-41); Mean Corp Hgb Conc 31.9 g/dL (32-36); Mean Corpuscular Hgb 30.1 pg (27.0-32.0); Mean Corpuscular Volume 94.5 fL (81-99); Mean Platelet Vol. 9.6 fl (6.2-12.0); Monocyte# 0.48 X10^3/uL; Monocyte% 6.3 % (0-10); NRBC Flagged by Analyzer 0 % (0-5); Neutrophil # 4.15 X10^3/uL (2.7-7.7); Neutrophil % 54.1 % (47-70); Platelet Count 369 K/mm3 (150-450); RBC Distribution Width CV 14.6 % (11.6-14.6); RBC Distribution Width SD 50.4 fl (35.1-43.9); Red Blood Count 2.89 M/mm3 (4.2-5.4); White Blood Count 7.7 K/mm3 (4.4-11.0)
[2020-05-24 07:30] LABS: ALB/GLOB Ratio 0.9 RATIO (0.9-2.4); AST(SGOT) 4 U/L (15-37); Alanine Aminotransfer ALT/SGPT 12 U/L (13-56); Albumin, Serum 2.8 g/dL (3.2-5.0); Alkaline Phosphatase 58 U/L (45-117); Anion Gap 6 (5-15); BUN 37 mg/dL (7-18); BUN/Creat Ratio 26.6 RATIO (10-20); Calcium,Total 7.8 mg/dL (8.5-10.1); Chloride 112 mmol/L (98-107); Creatinine, Serum 1.39 mg/dL (0.55-1.02); EST Glomerular Filtration Rate 41 mL/min (>60); Est Glom Filt Rate - Afr Amer 49 mL/min (>60); Glucose 153 mg/dL (74-106); Potassium 4.7 mmol/L (3.5-5.1); Protein, Total 5.8 g/dL (6.4-8.2); Sodium Level 138 mmol/L (136-145)
--- NOTE | 2020-05-24 08:06 | PCM.PN.HOSP ---
Patient Problems: Active and Suspected Problems (Last Reviewed 05/13/20 @ 14:16 by Humaira Bae PA, PA) Lactic acidosis (Acute) Acute kidney injury superimposed on chronic kidney disease (Acute) Chronic pancreatic insufficiency (Acute) Reason for Visit: Gastroenteritis Subjective: Patient is a 64-year-old female to the emergency department with chills with associated nausea vomiting and diarrhea patient was found to be in acute kidney injury admitted to regular nursing floor for further management Objective: GENERAL: cooperative HEENT: Atraumatic; EYES; Anicteric, Normal Conjunctiva NECK; supple, normal thyroid, RESPIRATORY: Diminished to auscultation CARDIOVASCULAR: Regular S1 S2, GI: soft, normoactive bowel sounds, : No Renal angle tenderness; EXTREMITIES: No edema, no clubbing, MUSCULOSKELETAL: no muscle waisting NEURO: Awake; no lateralizing signs. SKIN: No Rash PSYCH; Flat affect Vitals/I&O's: Vital Signs Temp Pulse Resp BP Pulse Ox 97.7 F L 57 L 20 H 98/50 L 99 05/24/20 04:02 05/24/20 06:00 05/24/20 04:02 05/24/20 06:00 05/24/20 04:02 Oxygen Flow Rate (L/min) 2 Oxygen Delivery Method Nasal Cannula Weight: 63 kg Body Mass Index (BMI) 27.0 Intake and Output for Last 24 Hours 05/22/20 05/23/20 05/24/20 23:59 23:59 23:59 Intake Total 2152.5 / 2152.5 1485 / 1485 Output Total 300 / 300 Balance 2152.5 / 2152.5 1185 / 1185 Microbiology Past 72 Hours 05/23/20 22:30 Mucosa - Nasopharyngeal Respiratory Panel (PCR) - Final 05/23/20 16:55 Mucosa - Nose SARS-CoV-2 Antigen (Rapid) - Final Laboratory Results 05/23/20 15:35: WBC 11.2 H, RBC 3.89 L, Hgb 11.7 L, Hct 36.3 L, MCV 93.3, MCH 30.1, MCHC 32.2, RDW Std Deviation 50.8 H, RDW Coeff of Yaw 14.8 H, Plt Count 530 H, MPV 9.4, Immature Gran % (Auto) 0.500, Neut % (Auto) 75.9 H, Lymph % (Auto) 17.2 L, [place] % (Auto) 4.2, Eos % (Auto) 1.8, Baso % (Auto) 0.4, Absolute Neuts (auto) 8.5 H, Absolute Lymphs (auto) 1.93, Nucleated RBC % 0 05/23/20 15:35: Sodium 135 L, Potassium 5.1, Chloride 103, Carbon Dioxide 20.0 L, Anion Gap 12, BUN 49 H, Creatinine 2.28 H, Estim Creat Clear Calc 24.41, Est GFR (MDRD) Af Amer 28 L, Est GFR (MDRD) Non-Af 23 L, BUN/Creatinine Ratio 21.5 H, Glucose 154 H, Calcium 9.5, Total Bilirubin 0.40, AST 6 L, ALT 19, Alkaline Phosphatase 85, Total Protein 8.0, Albumin 3.9, Globulin 4.1, Albumin/Globulin Ratio 1.0, Lipase 34 L 05/23/20 15:35: Magnesium 1.3 L 05/23/20 15:35: Procalcitonin 0.10 H 05/23/20 16:27: Lactic Acid 2.4 H* 05/23/20 16:50: Urine Color Yellow, Urine Clarity Sl. Cloudy, Urine pH 5.0, Ur Specific [place] 1.020, Urine Protein Negative, Urine Glucose (UA) Normal, Urine Ketones Negative, Urine Occult Blood Negative, Urine Nitrite Negative, Urine Bilirubin Negative, Urine Urobilinogen Normal, Ur Leukocyte Esterase Negative, Urine RBC 0 SEEN, Urine WBC 0 SEEN, Ur Squamous Epith Cells 5-10 SEEN, Urine Bacteria RARE, Urine Mucus RARE 05/23/20 20:50: Lactic Acid 2.2 H* 05/23/20 22:04: POC Glucose 68 L 05/24/20 05:32: WBC 7.7, RBC 2.89 L, Hgb 8.7 L, Hct 27.3 L, MCV 94.5, MCH 30.1, MCHC 31.9 L, RDW Std Deviation 50.4 H, RDW Coeff of Yaw 14.6, Plt Count 369, MPV 9.6, Immature Gran % (Auto) 0.400, Neut % (Auto) 54.1, Lymph % (Auto) 34.6, [place] % (Auto) 6.3, Eos % (Auto) 3.9, Baso % (Auto) 0.7, Absolute Neuts (auto) 4.2, Absolute Lymphs (auto) 2.65, Nucleated RBC % 0 05/24/20 05:32: Sodium 138, Potassium 4.7, Chloride 112 H, Carbon Dioxide 20.0 L, Anion Gap 6, BUN 37 H, Creatinine 1.39 H, Estim Creat Clear Calc 41.20, Est GFR (MDRD) Af Amer 49 L, Est GFR (MDRD) Non-Af 41 L, BUN/Creatinine Ratio 26.6 H, Glucose 153 H, Calcium 7.8 L, Total Bilirubin 0.20, AST 4 L, ALT 12 L, Alkaline Phosphatase 58, Total Protein 5.8 L, Albumin 2.8 L, Globulin 3.0, Albumin/Globulin Ratio 0.9 Current Medications Acetaminophen (Acetaminophen 325 Mg Tablet) 650 mg PO Q6H PRN PRN PRN Reason: Pain Score 1-10/Temp > 100.7 F Last Admin: 05/24/20 04:18 Dose: 650 mg Documented by: Al Hydroxide/Mg Hydroxide (Mag Hydrox/Al Hydrox/Simeth 30 Ml Udc) 30 ml PO Q6H PRN PRN PRN Reason: Gastric Burning Albuterol Sulfate (Albuterol 2.5 Mg/3 Ml Vial.Neb.) 2.5 mg INHALATION Q2H PRN PRN PRN Reason: Dyspnea, wheezing Allopurinol (Allopurinol 100 Mg Tablet) 100 mg PO QHS [facility] Last Admin: 05/23/20 22:35 Dose: 100 mg Documented by: Amlodipine Besylate (Amlodipine 2.5 Mg Tablet) 2.5 mg PO DAILY [facility] Aspirin (Aspirin E.C. 81 Mg Tablet) 81 mg PO DAILY@0800 [facility] Atorvastatin Calcium (Atorvastatin Calcium 80 Mg Tablet) 80 mg PO QHS [facility] Last Admin: 05/23/20 22:35 Dose: 80 mg Documented by: Carvedilol (Carvedilol 3.125 Mg Tablet) 3.125 mg PO BID [facility] Last Admin: 05/23/20 22:33 Dose: 3.125 mg Documented by: Divalproex Sodium (Divalproex Sodium 125 Mg Sprinkle) 125 mg PO BID [facility] Last Admin: 05/23/20 22:34 Dose: 125 mg Documented by: Gabapentin (Gabapentin 600 Mg Tablet) 600 mg PO TID [facility] Last Admin: 05/24/20 05:59 Dose: 600 mg Documented by: Guaifenesin (Guaifenesin 10 Ml Udc (200mg/10ml)) 20 ml PO Q4H PRN PRN PRN Reason: COUGH Heparin Sodium (Porcine) (Heparin Injection (Vial) 5,000 Unit/Ml Vial) 5,000 unit SC Q12 [facility] Last Admin: 05/23/20 22:35 Dose: 5,000 unit Documented by: Hydralazine HCl (Hydralazine 20 Mg/Ml Vial) 10 mg IV Q4H PRN PRN PRN Reason: SBP > 160 Hydroxyzine Pamoate (Hydroxyzine Buffy 25 Mg Capsule) 25 mg PO DAILY PRN PRN PRN Reason: ITCHING Dextrose/Sodium Chloride (Dextrose 5%/0.9% Nacl) 1,000 mls @ 150 mls/hr IV .Q6H40M [facility] Last Admin: 05/24/20 05:11 Dose: 150 mls/hr Documented by: Insulin Glargine (Insulin Glargine 100 Units/Ml Pen) 40 units SC QHS [facility] Last Admin: 05/23/20 22:15 Dose: Not Given Documented by: Insulin Human Lispro (Insulin Lispro 100 Unit/Ml Insuln.Pen) 0 unit SC [facility]; Protocol Last Admin: 05/23/20 22:14 Dose: Not Given Documented by: Levothyroxine Sodium (Levothyroxine 112 Mcg Tablet) 112 mcg PO DAILY@0600 [facility] Last Admin: 05/24/20 05:59 Dose: 112 mcg Documented by: Melatonin (Melatonin 3 Mg Tablet) 3 mg PO QHS PRN PRN PRN Reason: INSOMNIA Morphine Sulfate (Morphine 2 Mg/Ml Syringe) 2 mg IV Q3H PRN PRN PRN Reason: Pain Score 6-10 Nicotine (Nicotine 14 Mg Patch) 14 mg TD DAILY [facility] Last Admin: 05/23/20 22:36 Dose: 14 mg Documented by: Nitroglycerin (Nitroglycerin (Inpatient Use) 0.4 Mg Tab.Subl) 0.4 mg SUBLINGUAL Q5M PRN PRN Reason: CARDIAC/CHEST PAIN Nutritional Formula (Lactose Free) (Ensure Enlive 120 Ml Liquid) 120 ml PO 4X/DAY [facility] Ondansetron HCl (Ondansetron 4 Mg/2 Ml Vial) 4 mg IV Q8H PRN PRN PRN Reason: NAUSEA/VOMITING Oxycodone HCl (Oxycodone 5 Mg Tablet) 5 mg PO Q4H PRN PRN PRN Reason: Pain Score 4-5 Last Admin: 05/23/20 22:37 Dose: 5 mg Documented by: Pancrelipase (Creon 12,[address] Capsule) 1 capsule PO TIDCM [facility] Last Admin: 05/23/20 22:36 Dose: 1 capsule Documented by: Pantoprazole Sodium (Pantoprazole Sodium 40 Mg Tablet) 40 mg PO DAILY [facility] Prochlorperazine Edisylate (Prochlorperazine 10 Mg/2 Ml Vial) 5 mg IV Q4H PRN PRN PRN Reason: Breakthrough nausea/vomiting Sodium Chloride (0.9% Saline Lock 10 Ml Syringe) 10 - 40 ml IV UD PRN PRN Reason: SALINE FLUSH Throat Lozenges (Benzocaine/Menthol 1 Lozenge) 1 lozenge MUCOUS MEM Q2H PRN PRN PRN Reason: SORE THROAT Ticagrelor (Ticagrelor 90 Mg Tablet) 90 mg PO BID [facility] Last Admin: 05/23/20 22:33 Dose: 90 mg Documented by: Trazodone HCl (Trazodone 100 Mg Tablet) 150 mg PO QHS [facility] Last Admin: 05/23/20 22:34 Dose: 150 mg Documented by: STROKE Vital Signs/Narrative: Vital Signs Pulse BP 05/24/20 06:00 57 L 98/50 L Medical Necessity - Tobacco Use Smoking Status: Current every day smoker Tobacco Use: Cigarettes Assessment/Plan All Active Problems (Last Reviewed 05/13/20 @ 14:16 by Humaira MUNOZ, PA) Hypotension (Acute) Abnormal stress test (Acute) Dehydration (Acute) Lactic acidosis (Acute) Hypomagnesemia (Acute) Acute kidney injury superimposed on chronic kidney disease (Acute) Symptomatic bradycardia (Acute) Chronic pancreatic insufficiency (Acute) Patient is a 64-year-old female to the emergency department with chills with associated nausea vomiting and diarrhea patient was found to be in acute kidney injury admitted to regular nursing floor for further management 1. Acute gastroenteritis ?Suspected to be secondary to viral gastroenteritis admitted to regular nursing floor for symptomatic management 2. Acute kidney injury ?Secondary to dehydration from above resuscitated with IV fluids with significant improvement in kidney function 3. Anemia -Suspected to be secondary to chronic disorder monitoring H&H and transfuse if patient becomes symptomatic or hemoglobin falls below 7. Also did order for iron studies as well as B12 levels 4. Chronic kidney disease ?Patient presented with acute kidney injury kidney function improved with rehydration 5. Diabetes mellitus type II - -patient's oral hypoglycemics held. -Placed on long acting insulin, Accu-Cheks a.c. and at bedtime and covered with sliding scale insulin 6. Lactic acidosis ?Secondary to patient being on Metformin currently being held 7. Coronary artery disease ?With previous PCI patient on recommended medications 8. Hypertension - Blood pressure controlled, home medications continued with dose adjustment as needed 9. Dyslipidemia -Patient is on statin therapy, continued at home dose 10. Hypothyroidism - Patient is on levothyroxine home dose continued 11. Depression with anxiety ?Did continue patient psychotropic medications 12. Tobacco dependence - Counseled on cessation, offered nicotine patch for tobacco cravings 13. 11. Gout ?Symptoms controlled on allopurinol discontinued 13. DVT prophylaxis ?SC heparin Inpatient E&M: 82196 [facility] Hosp L3
[2020-05-24] MEDS: Pantoprazole Sodium 40 MG Tablet PO (08:26)
[2020-05-24] MEDS: Aspirin E.C. 81 MG Tablet PO (08:26)
[2020-05-24] MEDS: amLODIPine 2.5 MG Tablet PO (08:26)
[2020-05-24] MEDS: TICAGRELOR 90 MG TABLET PO ×2 (08:27→22:46)
[2020-05-24] MEDS: Heparin Injection (Vial) 5,000 UNIT/ML VIAL 5000 UNIT SC (08:27)
[2020-05-24] MEDS: Carvedilol 3.125 MG TABLET PO (08:29)
[2020-05-24] MEDS: Divalproex Sodium 125 MG SPRINKLE PO ×2 (08:32→22:46)
[2020-05-24] MEDS: Insulin Lispro 100 UNIT/ML INSULN.PEN SC ×4 (08:49→22:47)
[2020-05-24 09:00] LABS: Bedside Glucose 163 mg/dL (70-110)
[2020-05-24 11:26] LABS: Bedside Glucose 167 mg/dL (70-110)
[2020-05-24 16:51] LABS: Bedside Glucose 252 mg/dL (70-110)
[2020-05-24 22:06] LABS: Bedside Glucose 195 mg/dL (70-110)
[2020-05-24] MEDS: traZODone 100 MG Tablet 150 MG PO (22:46)
[2020-05-24] MEDS: Atorvastatin Calcium 80 MG Tablet PO (22:49)
[2020-05-24] MEDS: Allopurinol 100 MG Tablet PO (22:49)
--- NOTE | 2020-05-25 02:05 | PCS.PANDOC ---
PANDEMIC DOCUMENTATION INITIATED: Date: 05/23/20 Time: 2054
[2020-05-25 02:14] VITALS: BP 95/42; PULSE 60; RESP 18; TEMP 36.8; O2SAT 97
[2020-05-25 02:18] VITALS: RESP 18
[2020-05-25] MEDS: Gabapentin 600 MG Tablet PO (06:18)
[2020-05-25] MEDS: Levothyroxine 112 MCG Tablet PO (06:18)
[2020-05-25 06:46] LABS: Hematocrit 27.8 % (37-47); Hemoglobin 8.9 g/dL (12.0-15.0); Mean Corpuscular Hgb 30.6 pg (27.0-32.0); Mean Corpuscular Volume 95.5 fL (81-99); Mean Platelet Vol. 9.2 fl (6.2-12.0); Platelet Count 367 K/mm3 (150-450); RBC Distribution Width CV 14.6 % (11.6-14.6); Red Blood Count 2.91 M/mm3 (4.2-5.4)
[2020-05-25 07:11] LABS: Anion Gap 5 (5-15); BUN 21 mg/dL (7-18); BUN/Creat Ratio 21.1 RATIO (10-20); Calcium,Total 8.4 mg/dL (8.5-10.1); Chloride 111 mmol/L (98-107); Creatinine, Serum 0.99 mg/dL (0.55-1.02); EST Glomerular Filtration Rate 60 mL/min (>60); Est Glom Filt Rate - Afr Amer 72 mL/min (>60); Estimated Creatinine Clearance 58.58 ml/min; Glucose 92 mg/dL (74-106); Magnesium 1.1 mg/dL (1.6-2.6); Potassium 4.3 mmol/L (3.5-5.1); Sodium Level 141 mmol/L (136-145)
[2020-05-25 07:19] VITALS: O2SAT 97
[2020-05-25 07:46] VITALS: BP 94/72; PULSE 52; RESP 16; TEMP 36.7; O2SAT 96
[2020-05-25 07:56] LABS: Bedside Glucose 80 mg/dL (70-110)
[2020-05-25] MEDS: Divalproex Sodium 125 MG SPRINKLE PO (09:10)
[2020-05-25] MEDS: TICAGRELOR 90 MG TABLET PO (09:10)
[2020-05-25] MEDS: Pantoprazole Sodium 40 MG Tablet PO (09:10)
[2020-05-25] MEDS: Aspirin E.C. 81 MG Tablet PO (09:10)
[2020-05-25] MEDS: Magnesium Sulfate 4gm/100mL 4 GM/100 ML IV.SOLN. IV (09:28)
[2020-05-25] MEDS: 0.9% Saline Lock 10 ML Syringe IV ×2 (09:28→13:22)
--- NOTE | 2020-05-25 09:51 | DCINST_ITS ---
- Discharge Diagnoses Current Active Problems: Current Active and Chronic Problems (Last Reviewed 05/13/20 @ 14:16 by Humaira Bae PA, PA) Presence of stent in coronary artery (Chronic ~03/09/20) Successful PCI of ostial RPDA, pRCA and mLAD with GEORGINA 03/09/20 Atherosclerotic heart disease of [place] coronary artery without angina pectoris (Chronic) Lactic acidosis (Acute) Acute kidney injury superimposed on chronic kidney disease (Acute) Hyperlipidemia (Chronic) Type 2 diabetes mellitus (Chronic) Hypothyroidism (Chronic) Hypertension (Chronic) Bipolar disorder (Chronic) Chronic pancreatic insufficiency (Acute) Depression (Chronic) You will use the following diet at home:: Calorie/Carbohydrate Controlled (specify 1200, 1400, etc) - 1800 ely., Cardiac Your food should be the consistency of: Regular Discharge Activity: Return to Normal Activity Weight Bearing Status: Weight bearing as tolerated Call your doctor if you observe: Fever of 101 or Higher, Shortness of breath, Dizziness, Fainting spells, Chest pain, Increased palpitations (irregular heartbeat) Instructions: Taking Your Blood Pressure Allergies/Adverse Reactions: Allergies duloxetine [From Cymbalta] Allergy (Verified 05/23/20 15:30) Itching tomato Allergy (Verified 05/23/20 15:30) Itching Medications to take at Discharge Allopurinol 100 mg PO QHS 03/04/20 Divalproex Sodium 125 mg PO BID 03/04/20 Gabapentin [Neurontin] 600 mg PO TID 03/04/20 Hydroxyzine HCl 25 mg PO DAILY PRN PRN 03/04/20 Insulin Glargine [Lantus SoloStar Pen] 40 units SQ QHS 03/04/20 Levothyroxine [Synthroid] 112 mcg PO DAILY 03/04/20 Pantoprazole Sodium [Protonix] 40 mg PO DAILY 03/04/20 Trazodone HCl 150 mg PO QHS 03/04/20 Aspirin E.C. [Ecotrin] 81 mg PO DAILY@0800 #30 tab 03/11/20 atorvastatin 80 mg tablet 80 mg PO QHS #90 tab 04/06/20 carvedilol 3.125 mg tablet 3.125 mg PO BID #180 tab 04/06/20 ticagrelor 90 mg tablet 90 mg PO BID #180 tab 04/06/20 amlodipine 2.5 mg tablet 2.5 mg PO DAILY #90 tab 05/13/20 metformin 500 mg tablet 1,000 mg PO BID 05/13/20 Hydrochlorothiazide [Hctz] 12.5 mg PO DAILY #30 tab 05/25/20 Losartan Potassium 50 mg PO DAILY #30 tab 05/25/20 The following prescriptions were given: Hydrochlorothiazide [Hctz] 12.5 mg PO DAILY #30 tab Prescription Printed Losartan Potassium 50 mg PO DAILY #30 tab Prescription Printed Primary Care Physician: Yamila Tompkins MD [Primary Care Provider] - Please follow up with your Primary Care Physician in: 1 week. Test Results: Test results from this visit will be discussed in further detail at your follow- up appointment, if applicable.
--- NOTE | 2020-05-25 10:10 | CASEMGMT ---
RN CM Face to Face with patient for initial transition planning/care coordination assessment. RN CM introduced self and role at [facility]. Patient sitting in chair, alert and oriented. Patient willing to participate in assessment and is able to answer all questions appropriately. Care providers, pharmacy, and demographics verified. Patient wishes to discharge home, denies need for home health at this time. Patient states she has no further needs or concerns at this time. CM to follow for discharge planning needs that may arise. PCP: [facility] Specialists: Miguelito well tender Preferred Pharmacy: [facility] Insurance: [facility] dual Prescription Benefit: yes Living Will/HPOA: yes, daughter Lisa Lawson LNOK: daughter Living Arrangements: patient lives with her mother that she cares for, in mobile home with no steps to enter. Patient states she is independent at home. Transportation: self, daughter DME/HHC: paitent states she has shower chair, raised toilet, cane, walker, grab bars, nebulizer at home. Patient denies previous HHC. Disposition Plan: Patient to discharge home with family support and follow-up plans in place. Kathy MEDINA, RN, CM
[2020-05-25] MEDS: Insulin Lispro 100 UNIT/ML INSULN.PEN SC (11:22)
[2020-05-25 11:25] LABS: Bedside Glucose 271 mg/dL (70-110)
--- NOTE | 2020-05-25 11:49 | DS.PCM_ITS ---
Discharge Date and Diagnosis - Problem List Patient Problems: Active and Suspected Problems (Last Reviewed 05/13/20 @ 14:16 by Humaira MUNOZ PA) Lactic acidosis (Acute) Acute kidney injury superimposed on chronic kidney disease (Acute) Chronic pancreatic insufficiency (Acute) Date of Admission: 05/23/20 Date of Discharge: 05/25/20 - Primary Discharge Diagnosis Acute Problems: Active Problems (Last Reviewed 05/13/20 @ 14:16 by Humaira MUNOZ PA) #1 acute viral gastroenteritis. #2 acute kidney injury on top of stage III chronic kidney disease. #3 lactic acidosis, attributed to [place]. #4 chronic anemia. - Secondary Discharge Diagnosis Chronic Problems: Chronic Problems (Last Reviewed 05/13/20 @ 14:16 by Humaira MUNOZ PA) Presence of stent in coronary artery (Chronic ~03/09/20) Successful PCI of ostial RPDA, pRCA and mLAD with GEORGINA 03/09/20 Atherosclerotic heart disease of [place] coronary artery without angina pectoris (Chronic) Hyperlipidemia (Chronic) Type 2 diabetes mellitus (Chronic) Hypothyroidism (Chronic) Hypertension (Chronic) Bipolar disorder (Chronic) Depression (Chronic) Hospital Course and Treatment Imaging Results: Clinical Impression(s) from Imaging Studies Chest X-Ray 05/23/20 16:42 IMPRESSION: Stable, nonacute portable x-ray examination of the chest. Electronically Signed: Yohan Carpenter MD ([place]) at 17:01 EST , Service support , Operations: None Procedures: None Summary of Care Provided: Patient seen and examined on the day of discharge and therapy to be stable to be discharged home. She had no more symptoms of nausea, vomiting or diarrhea. She has been ambulating without any symptoms. She has been afebrile, other vital signs are stable. The patient is a 64 year old F presented to the emergency room because of nausea, vomiting and diarrhea. She was found to have acute gastroenteritis which is probably viral. Also, she was found to have acute kidney injury on top of stage III chronic kidney disease. This is attributed to acute viral gastroenteritis in addition to medication side effects including losartan, Metformin, HCTZ and triamterene. Patient was treated with IV fluids. Her C OVID-19 antigen was negative. Respiratory panel for viruses were negative. With treatment, her symptoms improved, she had no more nausea or vomiting, no more diarrhea. Her nephrotoxic medications were held during this hospital stay. Her blood pressure was kind on the lower side, systolic has been around 90-100. Patient stated that her blood pressure recently has been on the lower side, it is around 150 systolic at home. She denies significant symptoms of dizziness or lightheadedness, no syncope or presyncope. With IV fluid therapy, her kidney function improved, creatinine came down to 0.99 on discharge. Her electrolytes were within normal limits. Patient discharged home in a stable medical condition, because of borderline blood pressure, losartan was decreased down to 50 mg p.o. daily instead of 100 mg p.o. daily, triamterene/HCTZ discontinued and patient was started only on HCTZ 12.5 mg p.o. daily, continued on her other previous home medications including Norvasc 2.5 mg p.o. daily, started back on Metformin, I recommended to keep a close eye on her blood pressure, recommended follow-up with PCP in 1 week. Patient Problems: Active and Suspected Problems (Last Reviewed 05/13/20 @ 14:16 by Humaira MUNOZ, PA) Lactic acidosis (Acute) Acute kidney injury superimposed on chronic kidney disease (Acute) Chronic pancreatic insufficiency (Acute) - Physical Exam Vitals/I&O's: Vital Signs Temp Pulse Resp BP Pulse Ox 98.0 F 52 L 16 94/72 96 05/25/20 07:46 05/25/20 07:46 05/25/20 07:46 05/25/20 07:46 05/25/20 07:46 Oxygen Flow Rate (L/min) 2 Oxygen Delivery Method Room Air Weight: 140 lb 10.479 oz Body Mass Index (BMI) 27.0 Intake and Output for Last 24 Hours 05/23/20 05/24/20 05/25/20 23:59 23:59 23:59 Intake Total 2152.5 / 2152.5 3865.0 / 4265.0 700 / 700 Output Total 850 / 1650 1700 / 1700 Balance 2152.5 / 2152.5 3015.0 / 2615.0 -1000 / -1000 General: Alert, Oriented x3, Cooperative, No apparent distress HEENT: Atraumatic, PERRLA, EOMI, Normocephalic Oral: Moist Mucosa, No Gingival or Mucosal Lesions/ Ulcerations Neck: Supple, No JVD, Negative Carotid Bruits, Trachea Midline, Thyroid Normal Size and Texture Lungs: Clear to auscultation, Normal air movement, No rhonchi, No wheeze, No rales Cardiovascular: Regular rate, Regular Rhythm, Normal S1, Normal S2, PMI Normal Abdomen: Bowel Sounds Present, Soft, Non Tender, Non-Distended, No Hepato- splenomegaly Extremities: No clubbing, No cyanosis, No edema Skin: No rashes, No breakdown Lymphatic: No Cervical, Supraclavicular, or Inguinal Adenopathy Neurological: Cranial nerves II-XII grossly intact, Neuro grossly intact Psych/Mental Status: Normal Affect, Appropriate Microbiology Past 72 Hours 05/23/20 22:30 Mucosa - Nasopharyngeal Respiratory Panel (PCR) - Final 05/23/20 16:55 Mucosa - Nose SARS-CoV-2 Antigen (Rapid) - Final Laboratory Results 05/24/20 16:28: POC Glucose 252 H 05/24/20 22:02: POC Glucose 195 H 05/25/20 06:25: WBC 6.0, RBC 2.91 L, Hgb 8.9 L, Hct 27.8 L, MCV 95.5, MCH 30.6, MCHC 32.0, RDW Std Deviation 51.0 H, RDW Coeff of Yaw 14.6, Plt Count 367, MPV 9.2 05/25/20 06:25: Sodium 141, Potassium 4.3, Chloride 111 H, Carbon Dioxide 25.0, Anion Gap 5, BUN 21 H, Creatinine 0.99, Estim Creat Clear Calc 58.58, Est GFR (MDRD) Af Amer 72, Est GFR (MDRD) Non-Af 60, BUN/Creatinine Ratio 21.1 H, Glucose 92, Calcium 8.4 L, Magnesium 1.1 L 05/25/20 07:44: POC Glucose 80 05/25/20 11:20: POC Glucose 271 H Current Medications Acetaminophen (Acetaminophen 325 Mg Tablet) 650 mg PO Q6H PRN PRN PRN Reason: Pain Score 1-10/Temp > 100.7 F Last Admin: 05/24/20 20:25 Dose: 650 mg Documented by: Al Hydroxide/Mg Hydroxide (Mag Hydrox/Al Hydrox/Simeth 30 Ml Udc) 30 ml PO Q6H PRN PRN PRN Reason: Gastric Burning Albuterol Sulfate (Albuterol 2.5 Mg/3 Ml Vial.Neb.) 2.5 mg INHALATION Q2H PRN P RN PRN Reason: Dyspnea, wheezing Allopurinol (Allopurinol 100 Mg Tablet) 100 mg PO QHS [facility] Last Admin: 05/24/20 22:49 Dose: 100 mg Documented by: Amlodipine Besylate (Amlodipine 2.5 Mg Tablet) 2.5 mg PO DAILY [facility] Last Admin: 05/25/20 07:58 Dose: Not Given Documented by: Aspirin (Aspirin E.C. 81 Mg Tablet) 81 mg PO DAILY@0800 [facility] Last Admin: 05/25/20 09:10 Dose: 81 mg Documented by: Atorvastatin Calcium (Atorvastatin Calcium 80 Mg Tablet) 80 mg PO QHS [facility] Last Admin: 05/24/20 22:49 Dose: 80 mg Documented by: Carvedilol (Carvedilol 3.125 Mg Tablet) 3.125 mg PO BID [facility] Last Admin: 05/25/20 07:58 Dose: Not Given Documented by: Divalproex Sodium (Divalproex Sodium 125 Mg Sprinkle) 125 mg PO BID [facility] Last Admin: 05/25/20 09:10 Dose: 125 mg Documented by: Gabapentin (Gabapentin 600 Mg Tablet) 600 mg PO TID [facility] Last Admin: 05/25/20 06:18 Dose: 600 mg Documented by: Guaifenesin (Guaifenesin 10 Ml Udc (200mg/10ml)) 20 ml PO Q4H PRN PRN PRN Reason: COUGH Heparin Sodium (Porcine) (Heparin Injection (Vial) 5,000 Unit/Ml Vial) 5,000 unit SC Q12 [facility] Last Admin: 05/25/20 09:10 Dose: Not Given Documented by: Hydralazine HCl (Hydralazine 20 Mg/Ml Vial) 10 mg IV Q4H PRN PRN PRN Reason: SBP > 160 Hydroxyzine Pamoate (Hydroxyzine Buffy 25 Mg Capsule) 25 mg PO DAILY PRN PRN PRN Reason: ITCHING Magnesium Sulfate () 4 gm in 100 mls @ 25 mls/hr IV X1 ONE Stop: 05/25/20 12:14 Last Admin: 05/25/20 09:28 Dose: 25 mls/hr Documented by: Insulin Glargine (Insulin Glargine 100 Units/Ml Pen) 40 units SC QHS [facility] Last Admin: 05/24/20 22:48 Dose: 40 units Documented by: Insulin Human Lispro (Insulin Lispro 100 Unit/Ml Insuln.Pen) 0 unit SC ACHS [facility]; Protocol Last Admin: 05/25/20 11:22 Dose: 4 u Documented by: Levothyroxine Sodium (Levothyroxine 112 Mcg Tablet) 112 mcg PO DAILY@0600 [facility] Last Admin: 05/25/20 06:18 Dose: 112 mcg Documented by: Melatonin (Melatonin 3 Mg Tablet) 3 mg PO QHS PRN PRN PRN Reason: INSOMNIA Morphine Sulfate (Morphine 2 Mg/Ml Syringe) 2 mg IV Q3H PRN PRN PRN Reason: Pain Score 6-10 Nicotine (Nicotine 14 Mg Patch) 14 mg TD DAILY [facility] Last Admin: 05/25/20 09:10 Dose: 14 mg Documented by: Nitroglycerin (Nitroglycerin (Inpatient Use) 0.4 Mg Tab.Subl) 0.4 mg SUBLINGUAL Q5M PRN PRN Reason: CARDIAC/CHEST PAIN Nutritional Formula (Lactose Free) (Ensure Enlive 120 Ml Liquid) 120 ml PO 4X/DAY [facility] Last Admin: 05/25/20 09:10 Dose: Not Given Documented by: Ondansetron HCl (Ondansetron 4 Mg/2 Ml Vial) 4 mg IV Q8H PRN PRN PRN Reason: NAUSEA/VOMITING Oxycodone HCl (Oxycodone 5 Mg Tablet) 5 mg PO Q4H PRN PRN PRN Reason: Pain Score 4-5 Last Admin: 05/23/20 22:37 Dose: 5 mg Documented by: Pancrelipase (Creon 12,[address] Capsule) 1 capsule PO TIDCM [facility] Last Admin: 05/25/20 11:22 Dose: Not Given Documented by: Pantoprazole Sodium (Pantoprazole Sodium 40 Mg Tablet) 40 mg PO DAILY [facility] Last Admin: 05/25/20 09:10 Dose: 40 mg Documented by: Prochlorperazine Edisylate (Prochlorperazine 10 Mg/2 Ml Vial) 5 mg IV Q4H PRN PRN PRN Reason: Breakthrough nausea/vomiting Sodium Chloride (0.9% Saline Lock 10 Ml Syringe) 10 - 40 ml IV UD PRN PRN Reason: SALINE FLUSH Last Admin: 05/25/20 09:28 Dose: 10 ml Documented by: Throat Lozenges (Benzocaine/Menthol 1 Lozenge) 1 lozenge MUCOUS MEM Q2H PRN PRN PRN Reason: SORE THROAT Ticagrelor (Ticagrelor 90 Mg Tablet) 90 mg PO BID [facility] Last Admin: 05/25/20 09:10 Dose: 90 mg Documented by: Trazodone HCl (Trazodone 100 Mg Tablet) 150 mg PO QHS [facility] Last Admin: 05/24/20 22:46 Dose: 150 mg Documented by: Discharge Activity: Return to Normal Activity Weight Bearing Status: Weight bearing as tolerated Call your doctor if you observe: Fever of 101 or Higher, Shortness of breath, Dizziness, Fainting spells, Chest pain, Increased palpitations (irregular heartbeat) Home Medications: Medications to take at Discharge Allopurinol 100 mg PO QHS 03/04/20 Divalproex Sodium 125 mg PO BID 03/04/20 Gabapentin [Neurontin] 600 mg PO TID 03/04/20 Hydroxyzine HCl 25 mg PO DAILY PRN PRN 03/04/20 Insulin Glargine [Lantus SoloStar Pen] 40 units SQ QHS 03/04/20 Levothyroxine [Synthroid] 112 mcg PO DAILY 03/04/20 Pantoprazole Sodium [Protonix] 40 mg PO DAILY 03/04/20 Trazodone HCl 150 mg PO QHS 03/04/20 Aspirin E.C. [Ecotrin] 81 mg PO DAILY@0800 #30 tab 03/11/20 atorvastatin 80 mg tablet 80 mg PO QHS #90 tab 04/06/20 carvedilol 3.125 mg tablet 3.125 mg PO BID #180 tab 04/06/20 ticagrelor 90 mg tablet 90 mg PO BID #180 tab 04/06/20 amlodipine 2.5 mg tablet 2.5 mg PO DAILY #90 tab 05/13/20 metformin 500 mg tablet 1,000 mg PO BID 05/13/20 Hydrochlorothiazide [Hctz] 12.5 mg PO DAILY #30 tab 05/25/20 Losartan Potassium 50 mg PO DAILY #30 tab 05/25/20 Following Prescriptions Were Given to Patient: Hydrochlorothiazide [Hctz] 12.5 mg PO DAILY #30 tab Prescription Printed Losartan Potassium 50 mg PO DAILY #30 tab Prescription Printed Primary Care Physician: Yamila Tompkins MD [Primary Care Provider] - Please follow up with your Primary Care Physician in: 1 week. Patient Instructions: Taking Your Blood Pressure Disposition: Home Minutes spent on discharge:: 32 Medical Necessity - Tobacco Use Smoking Status: Current every day smoker Tobacco Use: Cigarettes Meaningful Use Info Meaningful Use Diagnoses (Choose all that apply): None applicable Inpatient E&M: 28599 Disch Hosp
[2020-05-25 13:38] VITALS: BP 132/54; PULSE 53; RESP 16; TEMP 36.4; O2SAT 98
== END 2020-05-25 14:06 | disposition home or self-care (01) | DRG 392 ==
LOC: ED 17:21 → MS3 20:38
PROVIDERS: Internal Medicine; Admitting Provider Family Medicine; Emergency Provider Emergency Medicine; PCP Family Medicine; Visit Provider Hospitalist
DX: A08.4 Viral intestinal infection, unspecified (principal); N17.9 Acute kidney failure, unspecified; E87.2 Acidosis; N18.30 Chronic kidney disease, stage 3 unspecified; E11.22 Type 2 diabetes mellitus with diabetic chronic kidney disease; I12.9 Hypertensive chronic kidney disease with stage 1 through stage 4 chronic kidney disease, or unspecified chronic kidney disease; D63.1 Anemia in chronic kidney disease; Z79.4 Long term (current) use of insulin; E86.0 Dehydration; I25.10 Atherosclerotic heart disease of native coronary artery without angina pectoris; Z95.5 Presence of coronary angioplasty implant and graft; Z79.899 Other long term (current) drug therapy; F17.210 Nicotine dependence, cigarettes, uncomplicated; E78.5 Hyperlipidemia, unspecified; E03.9 Hypothyroidism, unspecified; F31.9 Bipolar disorder, unspecified; F41.8 Other specified anxiety disorders; M10.9 Gout, unspecified; J44.9 Chronic obstructive pulmonary disease, unspecified; K21.9 Gastro-esophageal reflux disease without esophagitis
CPT/HCPCS: 36415; 71045; 80048; 80053; 81001; 82962; 83605; 83690; 83735; 84145; 85025; 85027; 87426; 87633; 97802; 99251; 99285; 99406; J7030; A4216; G0463; J2405

== ENCOUNTER → 2020-06-05 12:26 | Outpatient (CLI) | payer MEDICARE, SELFPAY ==
[2020-05-23 21:12] VITALS: BMI 27.0
[2020-06-04 12:24] VITALS: BMI 26.4; BMI 27.0
[2020-06-05 12:43] LABS: Absolute Lymphocyte Count 1.43 X10^3/uL (0.83-4.51); Absolute Neutrophil Count 8.2 X10^3/uL (2.0-7.7); Basophil# 0.08 X10^3/uL; Basophil% 0.8 % (0-1); Eosinophil# 0.29 X10^3/uL; Eosinophils% 2.7 % (0-5); Hematocrit 35.1 % (37-47); Hemoglobin 11.5 g/dL (12.0-15.0); Lymphocyte # 1.43 X10^3/ul (4.0); Lymphocyte % 13.4 % (19-41); Mean Corp Hgb Conc 32.8 g/dL (32-36); Mean Corpuscular Hgb 30.9 pg (27.0-32.0); Mean Corpuscular Volume 94.4 fL (81-99); Mean Platelet Vol. 8.7 fl (6.2-12.0); Monocyte# 0.55 X10^3/uL; Monocyte% 5.2 % (0-10); NRBC Flagged by Analyzer 0 % (0-5); Neutrophil # 8.22 X10^3/uL (2.7-7.7); Neutrophil % 77.1 % (47-70); Platelet Count 543 K/mm3 (150-450); RBC Distribution Width CV 14.7 % (11.6-14.6); RBC Distribution Width SD 50.7 fl (35.1-43.9); Red Blood Count 3.72 M/mm3 (4.2-5.4); White Blood Count 10.7 K/mm3 (4.4-11.0)
[2020-06-05 13:19] LABS: Vitamin B12 439 pg/mL (211-911); Vitamin D,25 Hydroxy 30.4 ng/mL
[2020-06-05 13:22] LABS: Hemoglobin A1c 6.8 % (3.8-5.6)
[2020-06-05 13:30] LABS: ALB/GLOB Ratio 0.9 RATIO (0.9-2.4); AST(SGOT) 8 U/L (15-37); Alanine Aminotransfer ALT/SGPT 19 U/L (13-56); Alkaline Phosphatase 90 U/L (45-117); Anion Gap 7 (5-15); BUN 30 mg/dL (7-18); BUN/Creat Ratio 20.8 RATIO (10-20); Chloride 105 mmol/L (98-107); Cholesterol 194 mg/dL (200); Creatinine, Serum 1.44 mg/dL (0.55-1.02); EST Glomerular Filtration Rate 39 mL/min (>60); Est Glom Filt Rate - Afr Amer 47 mL/min (>60); Globulin 4.3 g/dL (2.2-4.2); Glucose 95 mg/dL (74-106); High Density Lipoprotein 46 mg/dL; Magnesium 1.4 mg/dL (1.6-2.6); Potassium 4.9 mmol/L (3.5-5.1); Protein, Total 8.3 g/dL (6.4-8.2); Sodium Level 135 mmol/L (136-145); Thyroid Stim Hormone (TSH) 0.65 uIU/mL (0.358-3.74); Triglycerides 420 mg/dL
== END ==
PROVIDERS: PCP Family Medicine; Referring Provider Family Medicine; Visit Provider Family Medicine
DX: E11.40 Type 2 diabetes mellitus with diabetic neuropathy, unspecified (principal); E83.42 Hypomagnesemia
CPT/HCPCS: 36415; 80053; 80061; 82306; 82607; 83036; 83735; 84443; 85025

== ENCOUNTER → 2020-06-05 14:37 | Outpatient (CLI) | payer MEDICARE, MEDICAID, SELFPAY ==
[2020-05-23 21:12] VITALS: BMI 27.0
[2020-06-04 12:24] VITALS: BMI 26.4; BMI 27.0
--- NOTE | 2020-06-05 15:00 | BI_ITS ---
MAMMOGRAPHY - BILATERAL SCREENING REASON FOR EXAM: Female, 64 years old. Routine annual screening examination. PERTINENT HISTORY: Non-contributory. Right lateral breast pain. TECHNIQUE: Digital bilateral breast kali (3D mammographic acquisition) in the CC and MLO projections. 2-D mediolateral oblique (MLO) and craniocaudad (CC) views of both breasts were obtained. CAD: Full Field Digital Mammography with Computer Added Detection was performed. COMPARISON: Comparison is made with prior outside examination dated 10/24/2018. FINDINGS: Breast Composition: There are scattered areas of fibroglandular density. There are no dominant masses or suspicious calcifications. No other significant abnormalities are identified. There has been no significant change since the prior study. BI/SCRN MAMM (CAD)W/KALI BILAT IMPRESSION: Stable bilateral screening mammogram. Yearly follow-up mammogram recommended. (A) ASSESSMENT CATEGORY: BIRADS Category 1: Negative. A letter regarding these results will be sent to the patient by the facility within 30 days. Approximately 10% of breast cancers are not detected by mammography. A normal mammogram should not delay biopsy of a clinically suspicious abnormality. [id number] Electronically Signed: Lloyd Evans MD at 8:33 EST , Service support ,
== END ==
PROVIDERS: PCP Family Medicine; Referring Provider Family Medicine; Visit Provider Family Medicine
DX: E11.40 Type 2 diabetes mellitus with diabetic neuropathy, unspecified (principal); E83.42 Hypomagnesemia; Z12.31 Encounter for screening mammogram for malignant neoplasm of breast
CPT/HCPCS: 36415; 77063; 77067; 80053; 80061; 82306; 82607; 83036; 83735; 84443; 85025

== ENCOUNTER → 2020-07-28 14:20 | Outpatient (CLI) | payer MEDICARE, SELFPAY ==
[2020-06-04 12:24] VITALS: BMI 26.4
[2020-07-16 13:14] VITALS: BMI 26.6
--- NOTE | 2020-07-28 14:25 | BD_ITS ---
STUDY: DUAL ENERGY X-RAY ABSORPTIOMETRY / DXA REASON FOR EXAM: Female, 65 years old. Osteoporosis. Early menopause. TECHNIQUE: Bone Mineral Density (BMD) measurements of lumbar spine and bilateral hips were obtained. COMPARISON: None. FINDINGS: Lumbar Spine (L1-L4): g/cm2 (1.385) / T-score (1.7) / Z-score (3.2) Findings are suggestive of normal bone density with a low fracture risk. Left Femur Total: g/cm2 (1.011) / T-score (0.0) / Z-score (1.2) Left Femoral Neck: g/cm2 (0.885) / T-score (-1.1) / Z-score (0.3) Right Femur Total: g/cm2 (1.081) / T-score (0.6) / Z-score (1.7) Right Femoral Neck: g/cm2 (0.943) / T-score (-0.7) / Z-score (0.7) BD/Dexa Bone Density Study IMPRESSION: The patient is considered osteopenic as outlined below according to World [employer] Organization (WHO) criteria with a low fracture risk. Reference Information: The T-score is the number of standard deviations above or below the standard which is normal for young adults at their peak bone mineral density. The World Health Organization (WHO) interprets the T-scores as follows: Above -1 Normal bone density Between -1 and -2.5 Osteopenia Equal to / or below -2.5 Osteoporosis As a practical clinical guideline, osteopenia may be graded as follows: Mild -1 through -1.5 Moderate -1.6 through -2.0 Severe -2.1 through -2.4 The Z-score is the number of standard deviations above or below age-matched controls. A Z-score of less than -1.5 would be considered abnormal. References: 1. NIH Osteoporosis and Related Bone Diseases www osteo.org 2. International Society for Clinical Densitometry www iscd.org 3. National Osteoporosis Foundation www nof.org Electronically Signed: Lloyd Evans MD at 14:58 EDT , Service support ,
== END ==
PROVIDERS: PCP Internal Medicine; Referring Provider Internal Medicine; Visit Provider Internal Medicine
DX: M81.0 Age-related osteoporosis without current pathological fracture (principal)
CPT/HCPCS: 77080

== ENCOUNTER 2020-07-30 20:01 | Observation (INO) | payer MEDICARE, MEDICAID, SELFPAY ==
[2020-06-04 12:24] VITALS: BMI 26.4
[2020-07-16 13:14] VITALS: BMI 26.6
[2020-07-30 20:02] VITALS: BP 129/57; PULSE 60; RESP 18; TEMP 36.6; O2SAT 97; BMI 26.9
--- NOTE | 2020-07-30 20:12 | EKG12_ITS ---
Test Reason : DYSRHYTHMIA Blood Pressure : / mmHG Vent. Rate : 066 BPM Atrial Rate : 066 BPM P-R Int : 178 ms QRS Dur : 098 ms QT Int : 434 ms P-R-T Axes : 045 -58 -10 degrees QTc Int : 454 ms Sinus rhythm with Premature atrial complexes Left axis deviation Abnormal ECG Confirmed by SHAILA LOPEZ, YENI ([id number]), editor & co founder AZAEL THORNE ([id number]) on 08/03/2020 11:40:15 A M Referred By: SHYAM Confirmed By:ALEXANDRA LINTON MD
[2020-07-30 20:18] VITALS: BP 127/88; BP 128/73; BP 144/95; PULSE 62; PULSE 77; PULSE 88
--- NOTE | 2020-07-30 20:20 | RAD_ITS ---
STUDY: X-RAY CHEST REASON FOR EXAM: Female, 65 years old. chest pain TECHNIQUE: AP COMPARISON: 05/23/2020 FINDINGS: EKG leads project over the chest. The lungs are clear and expanded. There is no demonstrated pleural abnormality. Normal size heart. Normal mediastinum and rita. Normal visualized pulmonary arteries. Normal visualized aortic arch and descending thoracic aorta. Normal visualized thoracic spine. Normal visualized ribs, clavicles, and shoulders. There is no demonstrated abnormality of the visualized soft tissue structures of the upper abdomen. RAD/Chest 1 View (Portable) IMPRESSION: Stable, nonacute portable x-ray examination of the chest. Electronically Signed: Yohan Carpenter MD ([place]) at 20:32 EST , Service support ,
[2020-07-30] MEDS: 0.9% Normal Saline 1,000 ML 1000 ML IV (20:21)
[2020-07-30 20:25] LABS: Absolute Lymphocyte Count 2.12 X10^3/uL (0.83-4.51); Absolute Neutrophil Count 7.9 X10^3/uL (2.0-7.7); Basophil# 0.05 X10^3/uL; Basophil% 0.4 % (0-1); Eosinophil# 0.25 X10^3/uL; Eosinophils% 2.2 % (0-5); Hematocrit 29.2 % (37-47); Hemoglobin 9.6 g/dL (12.0-15.0); Lymphocyte # 2.12 X10^3/ul (4.0); Lymphocyte % 18.7 % (19-41); Mean Corp Hgb Conc 32.9 g/dL (32-36); Mean Corpuscular Hgb 31.6 pg (27.0-32.0); Mean Corpuscular Volume 96.1 fL (81-99); Mean Platelet Vol. 8.6 fl (6.2-12.0); Monocyte# 0.94 X10^3/uL; Monocyte% 8.3 % (0-10); NRBC Flagged by Analyzer 0 % (0-5); Neutrophil # 7.92 X10^3/uL (2.7-7.7); Platelet Count 424 K/mm3 (150-450); RBC Distribution Width CV 14.9 % (11.6-14.6); RBC Distribution Width SD 52.1 fl (35.1-43.9); Red Blood Count 3.04 M/mm3 (4.2-5.4); White Blood Count 11.3 K/mm3 (4.4-11.0)
[2020-07-30 20:43] LABS: Anion Gap 9 (5-15); BUN 22 mg/dL (7-18); BUN/Creat Ratio 15.8 RATIO (10-20); Calcium,Total 8.2 mg/dL (8.5-10.1); Chloride 105 mmol/L (98-107); Creatinine, Serum 1.39 mg/dL (0.55-1.02); EST Glomerular Filtration Rate 41 mL/min (>60); Est Glom Filt Rate - Afr Amer 49 mL/min (>60); Estimated Creatinine Clearance 29.37 ml/min; Glucose 77 mg/dL (74-106); Magnesium 1.3 mg/dL (1.6-2.6); Potassium 3.6 mmol/L (3.5-5.1); Sodium Level 138 mmol/L (136-145)
--- NOTE | 2020-07-30 21:11 | PCM.HP.STD ---
Problem List (1) Near syncope Status: Acute (2) Tachybradycardia syndrome Status: Acute (3) Presence of stent in coronary artery Status: Chronic Comment: Successful PCI of ostial RPDA, pRCA and mLAD with GEORGINA 03/09/20 (4) Atherosclerotic heart disease of [place] coronary artery without angina pectoris Status: Chronic Qualifiers: [place] vs. transplanted heart: [place] heart Qualified Code(s): I25.10 - Atherosclerotic heart disease of [place] coronary artery without angina pectoris (5) Hypotension Status: Acute (6) Abnormal stress test Status: Chronic (7) Dehydration Status: Acute (8) Lactic acidosis Status: Inactive (9) Hypomagnesemia Status: Acute (10) Acute kidney injury superimposed on chronic kidney disease Status: Acute (11) Symptomatic bradycardia Status: Acute (12) Hyperlipidemia Status: Chronic Qualifiers: Hyperlipidemia type: unspecified Qualified Code(s): E78.5 - Hyperlipidemia, unspecified (13) Type 2 diabetes mellitus Status: Chronic Qualifiers: Diabetes mellitus mcc insulin use: with mcc use Diabetes mellitus complication status: with other specified complication Qualified Code(s): E11.69 - Type 2 diabetes mellitus with other specified complication; Z79.4 - jail (current) use of insulin (14) Hypothyroidism Status: Chronic Qualifiers: Hypothyroidism type: unspecified Qualified Code(s): E03.9 - Hypothyroidism, unspecified (15) Hypertension Status: Chronic Qualifiers: Hypertension type: essential hypertension Qualified Code(s): I10 - Essential (primary) hypertension (16) Bipolar disorder Status: Chronic Qualifiers: Active/Remission status: remission status unspecified Qualified Code(s): F31.9 - Bipolar disorder, unspecified (17) Chronic pancreatic insufficiency Status: Acute (18) Depression Status: Chronic Qualifiers: Depression Type: unspecified Qualified Code(s): F32.9 - Major depressive disorder, single episode, unspecified History of Present Illness Date of Admission: 07/30/20 Chief Complaint: Near syncope today The patient is a 65 year old F with multiple comorbidities as listed above came to ER with dizziness. She has on and off dizziness associated with variability of heart rate for 1.5 years. She states he feels her heart sometimes pounding and sometimes slowed and even sometimes stopped. It happens more on exertion. She denies passing out. She is having diarrhea for last 3 days about 5 to 10/day, watery in consistency without blood. Also complained of mild abdominal cramps in right lower quadrant. No fever or chills. Mild nausea but no vomiting. She states her urine has been dark yellow for last 2 days. Denies chest pain, shortness of breath at rest. Mild dyspnea on exertion. In ER blood pressure was normal 129/57 but heart rate has been unstable varying between 47-110/min. She is only on small dose of Coreg 3.125 mg twice daily. Orthostatic vitals shows drop in blood pressure from 140/95, heart rate 111 in supine position to BP 127/88, heart rate 101 in sitting posture. Patient has hypomagnesemia, 1.3. Patient had 1 L of normal saline bolus and magnesium sulfate infusion in ED. ER physician talked to senior art director Dr. Beaver and needs further evaluation for pacemaker. [] Past Medical History Past Medical History (Chronic Problems): Chronic Problems (Last Updated 07/16/20 @ 13:15 by Vandana Swanson) Presence of stent in coronary artery (Chronic ~03/09/20) Successful PCI of ostial RPDA, pRCA and mLAD with GEORGINA 03/09/20 Atherosclerotic heart disease of [place] coronary artery without angina pectoris (Chronic) Abnormal stress test (Chronic) Hyperlipidemia (Chronic) Type 2 diabetes mellitus (Chronic) Hypothyroidism (Chronic) Hypertension (Chronic) Bipolar disorder (Chronic) Depression (Chronic) Medical History: Medical History (Last Updated 07/16/20 @ 13:15 by Vandana Swanson) Presence of stent in coronary artery (Chronic) Onset Date: ~03/09/20 Z95.5 Successful PCI of ostial RPDA, pRCA and mLAD with GEORGINA 03/09/20 Atherosclerotic heart disease of [place] coronary artery without angina pectoris (Chronic) I25.10 Generalized OA M15.9 Allergies duloxetine [From Cymbalta] Allergy (Verified 07/30/20 20:02) Itching tomato Allergy (Verified 07/30/20 20:02) Itching Home Medications: Ambulatory Orders Medication Instructions Recorded Allopurinol 100 mg PO QHS 03/04/20 Divalproex Sodium 125 mg PO BID 03/04/20 Gabapentin [Neurontin] 600 mg PO TID 03/04/20 Hydroxyzine HCl 25 mg PO DAILY PRN PRN 03/04/20 Insulin Glargine [Lantus SoloStar 40 units SQ QHS 03/04/20 Pen] Levothyroxine [Synthroid] 112 mcg PO DAILY 03/04/20 Pantoprazole Sodium [Protonix] 40 mg PO DAILY 03/04/20 Trazodone HCl 150 mg PO QHS 03/04/20 Aspirin E.C. [Ecotrin] 81 mg PO DAILY@0800 #30 tab 03/11/20 atorvastatin 80 mg tablet 80 mg PO QHS #90 tab 04/06/20 carvedilol 3.125 mg tablet 3.125 mg PO BID #180 tab 04/06/20 ticagrelor 90 mg tablet 90 mg PO BID #180 tab 04/06/20 amlodipine 2.5 mg tablet 2.5 mg PO DAILY #90 tab 05/13/20 metformin 500 mg tablet 1,000 mg PO BID 05/13/20 Losartan Potassium 50 mg PO DAILY #30 tab 05/25/20 [id number] 2 cap PO .qid cap 07/16/20 24,000-76,000-120,000 unit capsule,delayed rel triamterene 37.5 1 tab PO DAILY 07/16/20 mg-hydrochlorothiazide 25 mg tablet Surgical History: Surgical History (Last Updated 05/13/20 @ 14:18 by Humaira MUNOZ, PA) History of laparoscopic appendectomy Z90.49 History of total abdominal hysterectomy Z90.710 Hx of cholecystectomy Z90.49 Hx of shoulder surgery Z98.890 Surgical History: appendectomy, cholecystectomy, hysterectomy, - Psychiatric History: Anxiety, Bipolar, Depression 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 Paternal Family History: Family History (Last Updated 07/16/20 @ 13:22 by Vandana Swanson) Sister COPD (chronic obstructive pulmonary disease) Mother COPD (chronic obstructive pulmonary disease) Hypertension Alzheimer's dementia without behavioral disturbance Alzheimer's dementia Father Diabetes Hypertension Myocardial infarction History Items: Diabetes, High Cholesterol, Heart Disease, Hypertension Review of Systems Constitutional: Denies: Chills, Fever, Weight Change HEENT: Denies: Head Aches, Sinus Congestion, Sinus Drainage Cardiovascular: Denies: Chest Pain, Palpitations Respiratory: Reports: Shortness of breath upon exertion. Denies: Cough, Shortness of Breath, Shortness of breath at rest, Sputum production Gastrointestinal: Reports: Diarrhea, Nausea. Denies: Abdominal Pain, Constipation, Hematemesis, Hematochezia, Melena, Vomiting Genitourinary: Reports: - - Dark yellow urine, decreased amount. Denies: Dysuria, Frequency, Hematuria, Hesitancy Musculoskeletal: Reports: Joint Pain. Denies: Joint Tenderness Skin: Denies: Rash, Wounds Neurological: Reports: Balance problems. Denies: Focal weakness, Numbness, Tingling Psychiatric: Denies: Anxiety, Depression, Homicidal Ideations, Suicidal Ideations Hematologic/ Lymphatic: Denies: Easy Bruising, Easy Bleeding VTE Information - Inpt Only VTE Present on Admission: No VTE Mechan Device Prophylaxis: None VTE Pharm Prophylaxis ordered?: Yes Objective: General: Alert, Oriented x3, Cooperative HEENT: Atraumatic, PERRLA, EOMI, Normocephalic Oral: No Gingival or Mucosal Lesions/ Ulcerations Neck: Supple, No JVD, Negative Carotid Bruits Lungs: Air entry diminished in bilateral lung bases. No crepitation/rhonchi Cardiovascular: Sinus rhythm with sinus arrhythmia, heart rate variable, tacky/bradycardia. Normal S1, Normal S2, No murmurs Abdomen: Bowel Sounds Present, Soft, Non Tender, Non-Distended. No palpable mass. No rebound tenderness : No renal angle tenderness. No suprapubic tenderness. Extremities: No edema, Capillary Refill Less than 3 Seconds Skin: No rashes, No breakdown Musculoskeletal: No Tenderness to Palpation of Joints or Extremities Neurological: Cranial nerves II-XII grossly intact, Deep Tendon Reflexes 2+/4 and Symmetrical, Neuro grossly intact Psych/Mental Status: Normal Affect, Appropriate. - Physical Exam Vitals/I&O's: Vital Signs Temp Pulse Resp BP Pulse Ox 97.8 F 62 18 144/95 H 97 07/30/20 20:02 07/30/20 20:18 07/30/20 20:02 07/30/20 20:18 07/30/20 20:02 Oxygen Delivery Method Room Air Weight: 138 lb 3.677 oz Body Mass Index (BMI) 26.9 Laboratory Results 07/30/20 20:13: WBC 11.3 H, RBC 3.04 L, Hgb 9.6 L, Hct 29.2 L, MCV 96.1, MCH 31.6, MCHC 32.9, RDW Std Deviation 52.1 H, RDW Coeff of Yaw 14.9 H, Plt Count 424, MPV 8.6, Immature Gran % (Auto) 0.400, Neut % (Auto) 70.0, Lymph % (Auto) 18.7 L, [place] % (Auto) 8.3, Eos % (Auto) 2.2, Baso % (Auto) 0.4, Absolute Neuts (auto) 7.9 H, Absolute Lymphs (auto) 2.12, Nucleated RBC % 0 07/30/20 20:13: Sodium 138, Potassium 3.6, Chloride 105, Carbon Dioxide 24.0, Anion Gap 9, BUN 22 H, Creatinine 1.39 H, Estim Creat Clear Calc 29.37, Est GFR (MDRD) Af Amer 49 L, Est GFR (MDRD) Non-Af 41 L, BUN/Creatinine Ratio 15.8, Glucose 77, Calcium 8.2 L, Magnesium 1.3 L, Troponin I < 0.015 Current Medications Magnesium Sulfate 2 gm/ Sodium (Chloride) 104 mls @ 52 mls/hr IV X1 ONE Stop: 07/30/20 23:07 Assessment/Plan All Active Problems (Last Updated 07/16/20 @ 13:15 by Vandana Swanson) Near syncope (Acute) Tachybradycardia syndrome (Acute) Hypotension (Acute) Dehydration (Acute) Hypomagnesemia (Acute) Acute kidney injury superimposed on chronic kidney disease (Acute) Symptomatic bradycardia (Acute) Chronic pancreatic insufficiency (Acute) 65-year-old female came to ER with near syncope and diarrhea for last 3 days. 1. Dizziness/near syncope mostly secondary to tachybradycardia syndrome: Patient is being admitted in PCU. Correct the dehydration with Ringer lactate 1 L bolus and then 1 mL/h for another liter. Monitor electrolytes and kidney function, intake and output. Orthostatic vitals tomorrow a.m. 2. Possible sinus node dysfunction/tachybradycardia syndrome: Cardiology consult. Serial troponin enzymes. Twelve-lead EKG reviewed shows sinus rhythm with PACs, LAD at 66 bpm. QTc interval 450 ms. Variable heart rate between 47 210/min on laboratory monitor. Previous EKG was similar in February 2020, sinus rhythm with sinus arrhythmia. 2D echo done in February 2020 Interpretation Summary Normal LV size. Normal left and right atria. Concentric left ventricular hypertrophy. Left ventricular systolic function is normal. The estimated ejection fraction is 65 %. Normal diastology for age. No regional wall motion abnormalities noted. Presence of subvalvular membrane, mild gradient across the LVOT Mean aortic valve gradient 16.2 mmHg. Unable to estimate RV systolic pressure due to insufficient tricuspid regurgitant envelope. Mild tricuspid valve insufficiency. 3. Acute kidney injury, prerenal from diarrhea on CKD stage III: BUN/creatinine elevated /1.39. IV fluid as mentioned above. She was admitted between 05/23? for acute viral gastritis and acute kidney and CKD. 4. Anemia of chronic disease: Monitor H&H and transfuse if patient becomes symptomatic or hemoglobin falls below 7 g. Iron studies tomorrow a.m. Her baseline hemoglobin runs between 8 to 10 g%. 5. Diabetes mellitus type II: Hold oral hypoglycemic agents. Placed on long acting insulin, Accu-Cheks a.c. and at bedtime and covered with sliding scale insulin 7. Coronary artery disease: Home medications continued. Patient history of PCI 8. Hypertension: Blood pressure is labile. Hold antihypertensive medications 9. Dyslipidemia -Patient is on statin therapy, continued at home dose 10. Hypothyroidism - Patient is on levothyroxine home dose continued 11. Depression with anxiety continue patient psychotropic medications 12. Tobacco dependence - Counseled on cessation, offered nicotine patch for tobacco cravings 13. 11. Gout ?Symptoms controlled on allopurinol discontinued 14. DVT prophylaxis Lovenox 30 subcu daily Living will/advanced directive/end of life care: Patient does not have living will or advanced directive. After discussion of benefits/risks procedures involved with full code, DNR CC arrest and DNR CC, the patient opted for full resuscitation initially. She does not want to continue on life support measures if she gets brain or irreversible brain damage. Initially, patient does want artificial life support including intubation, tube feed, ventilator and/chest compression, central venous catheter, vasopressor and DC shock if needed Total time spent in [id number] encounter in discussion of advanced directive 16 minutes. Inpatient E&M: 10239 Init Hosp L3 OBSV E&M: 20812 Initial observation care L3 Procedures: 32142 Advncd Care Plan 30 Min
--- NOTE | 2020-07-30 21:25 | ED.DCSUM_ITS ---
- ER Visit Summary Date of Service: 07/30/20 Chief Complaint: Near syncope History of Present Illness: The patient is a 65 F with near syncope starting this afternoon. She has been under a lot of stress, taking care of 3 small children. She felt generalized weakness. She reports decreased oral intake. S he had some nausea and a headache. She had similar symptoms in the past which were attributed to dehydration. EMS noted a blood sugar in the 60s. She received oral glucose and D10 and is currently in the 70s. Patient has a history of myocarditis, coronary disease. She had stents placed several months ago. She also has a history of an irregular heartbeat. This may be a sick sinus syndrome. She had her medications adjusted and was told that she may eventually need a pacemaker. She also reports a history of low magnesium. She takes aspirin but no other blood thinners. Physical Examination: Afebrile and vital signs unremarkable. Patient alert and oriented. Pale skin. Heart irregular. Lungs clear. Abdomen soft. Extremities nontender with no edema. Test Results: EKG shows sinus rhythm at a rate of 66 with PACs. Chest x-ray showed nothing acute, reviewed by the radiologist and myself. Hemoglobin 9.6, stable. Magnesium 1.3, glucose 77, BUN 22, creatinine 1.39. Troponin normal. Emergency Department Course and Treatment: Patient was placed on a monitor. EKG was done as above. She had runs of bradycardia and tachycardia. Her blood pressure remained stable. Orthostatics were negative. Work-up indicated low magnesium, but other labs were fairly stable. Magnesium was replaced. Patient was discussed with the hospitalist for admission. He requested that we discussed with cardiology. I did speak with Dr. 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 Farley. He agreed that the patient may need a pacemaker at some point. No further orders at this time. Hospitalist will evaluate the patient in the ED for admission. Treatment Plan: As above Disposition: Admission Impression: Near syncope, hypomagnesium, cardiac dysrhythmia This note was generated with [employer] software. It may contain incorrect words, spelling, and punctuation that were not noted in review of the chart prior to signing ED Disposition - Plan for ED Patient: Referrals: Pat Bennett MD [Primary Care Provider] -
[2020-07-30 21:51] VITALS: BP 114/96; PULSE 86; RESP 14; TEMP 36.4; O2SAT 96
[2020-07-30 22:22] VITALS: BMI 25.7
[2020-07-30 22:31] VITALS: BMI 25.8
[2020-07-30 22:35] VITALS: BP 125/62; PULSE 75; RESP 16; TEMP 36.5; O2SAT 98
[2020-07-30] MEDS: Gabapentin 300 MG Capsule PO (22:52)
[2020-07-30] MEDS: Lactated Ringers 1,000 ML 100 ML IV (22:52)
[2020-07-30] MEDS: Atorvastatin Calcium 80 MG Tablet PO (22:52)
[2020-07-30 23:01] VITALS: PULSE 77
[2020-07-30 23:27] VITALS: O2SAT 98
[2020-07-30] MEDS: Allopurinol 100 MG Tablet PO (23:36)
[2020-07-30] MEDS: Divalproex Sodium 125 MG SPRINKLE PO (23:36)
[2020-07-30 23:46] LABS: Bedside Glucose 91 mg/dL (70-110)
[2020-07-31] VITALS (7 sets, daily range): BP systolic 102–130; BP diastolic 47–58; PULSE 55–67; RESP 16–18; TEMP 36.7–36.9; O2SAT 94–97
[2020-07-31 02:35] LABS: Absolute Neutrophil Count 6.1 X10^3/uL (2.0-7.7); Basophil# 0.04 X10^3/uL; Basophil% 0.4 % (0-1); Eosinophil# 0.23 X10^3/uL; Eosinophils% 2.4 % (0-5); Hematocrit 28.8 % (37-47); Hemoglobin 9.3 g/dL (12.0-15.0); Lymphocyte % 24.3 % (19-41); Mean Corp Hgb Conc 32.3 g/dL (32-36); Mean Corpuscular Hgb 31.5 pg (27.0-32.0); Mean Corpuscular Volume 97.6 fL (81-99); Mean Platelet Vol. 8.6 fl (6.2-12.0); Monocyte# 0.73 X10^3/uL; Monocyte% 7.7 % (0-10); NRBC Flagged by Analyzer 0 % (0-5); Neutrophil # 6.14 X10^3/uL (2.7-7.7); Neutrophil % 64.9 % (47-70); Platelet Count 438 K/mm3 (150-450); RBC Distribution Width CV 14.8 % (11.6-14.6); RBC Distribution Width SD 52.7 fl (35.1-43.9); Red Blood Count 2.95 M/mm3 (4.2-5.4); White Blood Count 9.5 K/mm3 (4.4-11.0)
[2020-07-31 03:09] LABS: Anion Gap 6 (5-15); BUN 18 mg/dL (7-18); BUN/Creat Ratio 14.6 RATIO (10-20); Chloride 106 mmol/L (98-107); Creatinine, Serum 1.23 mg/dL (0.55-1.02); EST Glomerular Filtration Rate 47 mL/min (>60); Est Glom Filt Rate - Afr Amer 57 mL/min (>60); Estimated Creatinine Clearance 33.19 ml/min; Ferritin 22 ng/mL (8-252); Glucose 148 mg/dL (74-106); Iron 35 ug/dL (50-170); Iron Binding Capacity,Total 298 ug/dL (250-450); PERCENT IRON SATURATION 11.7 % (15.0-55.0); Phosphorus 4.3 mg/dL (2.5-4.9); Potassium 4.1 mmol/L (3.5-5.1); Sodium Level 138 mmol/L (136-145); T4 Free Direct 1.37 ng/dL (0.76-1.46); Thyroid Stim Hormone (TSH) 0.22 uIU/mL (0.358-3.74)
[2020-07-31] MEDS: Gabapentin 300 MG Capsule PO (05:27)
[2020-07-31] MEDS: Levothyroxine 112 MCG Tablet PO (05:27)
[2020-07-31] MEDS: Creon 24,000 unit DR Capsule 1 CAP PO ×2 (06:33→11:06)
[2020-07-31 06:41] LABS: Bedside Glucose 116 mg/dL (70-110)
[2020-07-31] MEDS: TICAGRELOR 90 MG TABLET PO (09:20)
[2020-07-31] MEDS: Aspirin E.C. 81 MG Tablet PO (09:20)
[2020-07-31] MEDS: Pantoprazole Sodium 40 MG Tablet PO (09:21)
[2020-07-31] MEDS: Divalproex Sodium 125 MG SPRINKLE PO (09:53)
[2020-07-31] MEDS: Insulin Lispro 100 UNIT/ML INSULN.PEN SC (11:06)
[2020-07-31 11:20] LABS: Bedside Glucose 276 mg/dL (70-110)
--- NOTE | 2020-07-31 12:21 | DCINST_ITS ---
- Discharge Diagnoses Current Active Problems: Current Active and Chronic Problems (Last Updated 07/16/20 @ 13:15 by Vandana Swanson) Near syncope (Acute) Tachybradycardia syndrome (Acute) Presence of stent in coronary artery (Chronic ~03/09/20) Successful PCI of ostial RPDA, pRCA and mLAD with GEORGINA 03/09/20 Atherosclerotic heart disease of [place] coronary artery without angina pectoris (Chronic) Hypotension (Acute) Abnormal stress test (Chronic) Dehydration (Acute) Hypomagnesemia (Acute) Acute kidney injury superimposed on chronic kidney disease (Acute) Symptomatic bradycardia (Acute) Hyperlipidemia (Chronic) Type 2 diabetes mellitus (Chronic) Hypothyroidism (Chronic) Hypertension (Chronic) Bipolar disorder (Chronic) Chronic pancreatic insufficiency (Acute) Depression (Chronic) You will use the following diet at home:: Calorie/Carbohydrate Controlled (specify 1200, 1400, etc) - 1800 ely Your food should be the consistency of: Regular Your liquids should be the consistency of: Regular/Thin Discharge Activity: Return to Normal Activity Weight Bearing Status: Full weight bearing Allergies/Adverse Reactions: Allergies duloxetine [From Cymbalta] Allergy (Verified 07/30/20 20:02) Itching tomato Allergy (Verified 07/30/20 20:02) Itching Medications to take at Discharge Allopurinol 100 mg PO QHS 03/04/20 Divalproex Sodium 125 mg PO BID 03/04/20 Gabapentin [Neurontin] 600 mg PO TID 03/04/20 Hydroxyzine HCl 25 mg PO DAILY PRN PRN 03/04/20 Insulin Glargine [Lantus SoloStar Pen] 40 units SQ QHS 03/04/20 Levothyroxine [Synthroid] 112 mcg PO DAILY 03/04/20 Pantoprazole Sodium [Protonix] 40 mg PO DAILY 03/04/20 Trazodone HCl 150 mg PO QHS 03/04/20 Aspirin E.C. [Ecotrin] 81 mg PO DAILY@0800 #30 tab 03/11/20 atorvastatin 80 mg tablet 80 mg PO QHS #90 tab 04/06/20 carvedilol 3.125 mg tablet 3.125 mg PO BID #180 tab 04/06/20 ticagrelor 90 mg tablet 90 mg PO BID #180 tab 04/06/20 amlodipine 2.5 mg tablet 2.5 mg PO DAILY #90 tab 05/13/20 Losartan Potassium 50 mg PO DAILY #30 tab 05/25/20 Dicyclomine HCl [Bentyl] 20 mg PO TIDAC #120 cap 07/31/20 Triamterene 37.5MG/Hctz 25MG [Maxzide 37.5 mg-25 mg Tablet] 1 ea PO DAILY #1 tab 07/31/20 The following prescriptions were given: Dicyclomine HCl [Bentyl] 20 mg PO TIDAC #120 cap Transmission Status: Pending to [id number] Triamterene 37.5MG/Hctz 25MG [Maxzide 37.5 mg-25 mg Tablet] 1 ea PO DAILY #1 tab Primary Care Physician: Pat Bennett MD [Primary Care Provider] - Please follow up with your Primary Care Physician in: in 1-2 weeks Test Results: Test results from this visit will be discussed in further detail at your follow- up appointment, if applicable.
--- NOTE | 2020-07-31 13:59 | CON.PCM_ITS ---
Reason for Consult Date of Consultation: 07/31/20 Reason for Consultation: Dizziness History of Present Illness: The patient is a 65 year old F [admitted after an episode of dizziness. Patient had palpitations on and off during the time as well. On telemetry monitoring patient has had short runs of atrial tachycardia. Patient did not pass out. She has also been having diarrhea for the past few days.] Past Medical History Allergies/Adverse Reactions: Allergies duloxetine [From Cymbalta] Allergy (Verified 07/30/20 20:02) Itching tomato Allergy (Verified 07/30/20 20:02) Itching Home Medications: Ambulatory Orders Medication Instructions Recorded Allopurinol 100 mg PO QHS 03/04/20 Divalproex Sodium 125 mg PO BID 03/04/20 Gabapentin [Neurontin] 600 mg PO TID 03/04/20 Hydroxyzine HCl 25 mg PO DAILY PRN PRN 03/04/20 Insulin Glargine [Lantus SoloStar 40 units SQ QHS 03/04/20 Pen] Levothyroxine [Synthroid] 112 mcg PO DAILY 03/04/20 Pantoprazole Sodium [Protonix] 40 mg PO DAILY 03/04/20 Trazodone HCl 150 mg PO QHS 03/04/20 Aspirin E.C. [Ecotrin] 81 mg PO DAILY@0800 #30 tab 03/11/20 atorvastatin 80 mg tablet 80 mg PO QHS #90 tab 04/06/20 carvedilol 3.125 mg tablet 3.125 mg PO BID #180 tab 04/06/20 ticagrelor 90 mg tablet 90 mg PO BID #180 tab 04/06/20 amlodipine 2.5 mg tablet 2.5 mg PO DAILY #90 tab 05/13/20 Losartan Potassium 50 mg PO DAILY #30 tab 05/25/20 Dicyclomine HCl [Bentyl] 20 mg PO TIDAC #120 cap 07/31/20 Triamterene 37.5MG/Hctz 25MG 1 ea PO DAILY #1 tab 07/31/20 [Maxzide 37.5 mg-25 mg Tablet] Past Medical History (Chronic Problems): Chronic Problems (Last Updated 07/16/20 @ 13:15 by Vandana Swanson) Presence of stent in coronary artery (Chronic ~03/09/20) Successful PCI of ostial RPDA, pRCA and mLAD with GEORGINA 03/09/20 Atherosclerotic heart disease of [place] coronary artery without angina pectoris (Chronic) Abnormal stress test (Chronic) Hyperlipidemia (Chronic) Type 2 diabetes mellitus (Chronic) Hypothyroidism (Chronic) Hypertension (Chronic) Bipolar disorder (Chronic) Depression (Chronic) Surgical History: appendectomy, cholecystectomy, hysterectomy, - Psychiatric History: Anxiety, Bipolar, Depression 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 Paternal Family History: Family History (Last Updated 07/16/20 @ 13:22 by Vandana Swanson) Sister COPD (chronic obstructive pulmonary disease) Mother COPD (chronic obstructive pulmonary disease) Hypertension Alzheimer's dementia without behavioral disturbance Alzheimer's dementia Father Diabetes Hypertension Myocardial infarction History Items: Diabetes, High Cholesterol, Heart Disease, Hypertension Smoking Status: Current every day smoker Tobacco Use: Cigarettes Objective: Vital Signs Temp Pulse Resp BP Pulse Ox 98.0 F 59 L 18 116/47 L 95 07/31/20 09:29 07/31/20 10:59 07/31/20 09:29 07/31/20 10:08 07/31/20 09:29 Oxygen Delivery Method Room Air Weight: 132 lb Body Mass Index (BMI) 25.7 Intake and Output for Last 24 Hours 07/29/20 07/30/20 07/31/20 23:59 23:59 23:59 Intake Total 1104 / 1104 2300 / 2300 Output Total 500 / 500 900 / 900 Balance 604 / 604 1400 / 1400 General: Awake, Alert, Oriented x 3 HEENT: Atraumatic Oral: Moist Mucosa Neck: Supple Lungs: Clear to auscultation Cardiovascular: Regular Rhythm Abdomen: Soft Extremities: No edema Psych/Mental Status: Appropriate 07/30/20 20:13: WBC 11.3 H, RBC 3.04 L, Hgb 9.6 L, Hct 29.2 L, MCV 96.1, MCH 31.6, MCHC 32.9, Plt Count 424, MPV 8.6, Immature Gran % (Auto) 0.400, Neut % (Auto) 70.0, Lymph % (Auto) 18.7 L, [place] % (Auto) 8.3, Eos % (Auto) 2.2, Baso % (Auto) 0.4, Absolute Neuts (auto) 7.9 H, Nucleated RBC % 0 07/30/20 20:13: Sodium 138, Potassium 3.6, Chloride 105, Carbon Dioxide 24.0, Anion Gap 9, BUN 22 H, Creatinine 1.39 H, Est GFR (MDRD) Af Amer 49 L, Est GFR (MDRD) Non-Af 41 L, BUN/Creatinine Ratio 15.8, Glucose 77, Calcium 8.2 L, Magnesium 1.3 L, Troponin I < 0.015 07/30/20 23:18: Troponin I < 0.015 07/31/20 02:25: WBC 9.5, RBC 2.95 L, Hgb 9.3 L, Hct 28.8 L, MCV 97.6, MCH 31.5, MCHC 32.3, Plt Count 438, MPV 8.6, Immature Gran % (Auto) 0.300, Neut % (Auto) 64.9, Lymph % (Auto) 24.3, [place] % (Auto) 7.7, Eos % (Auto) 2.4, Baso % (Auto) 0.4, Absolute Neuts (auto) 6.1, Nucleated RBC % 0 07/31/20 02:25: Sodium 138, Potassium 4.1, Chloride 106, Carbon Dioxide 26.0, Anion Gap 6, BUN 18, Creatinine 1.23 H, Est GFR (MDRD) Af Amer 57 L, Est GFR (MDRD) Non-Af 47 L, BUN/Creatinine Ratio 14.6, Glucose 148 H, Calcium 8.0 L, Phosphorus 4.3, Magnesium 2.0, Iron 35 L, TIBC 298, Iron Saturation 11.7 L, Ferr itin 22 07/31/20 02:25: Troponin I < 0.015 Rhythm: EKG: ECHO: Stress Test: Cardiac Cath: PCI: CT Surgery: Holter monitor: EPS: PPM: CXR: Chest CT Scan: Assessment/Plan 1. Dizziness: Could be related to dehydration from diarrhea. Her atrial tachycardia could be contributing as well. Continue Coreg at this time. She has not had any significant prolonged runs of supraventricular or ventricular arrhythmias. She could be discharged home from a cardiac standpoint. It will be reasonable to get a 30-day event monitor as well. There is a questionable history of bradycardia. However from the patient's description it appears that it is a compensatory pause when her tachycardia switches to normal sinus rhythm. 2. Coronary artery disease: Stable from the standpoint. Continue present management.
--- NOTE | 2020-08-01 14:44 | PCM.DC.SUM ---
Discharge Date and Diagnosis - Problem List Patient Problems: Active and Suspected Problems (Last Updated 07/16/20 @ 13:15 by Vandana Swanson) Near syncope (Acute) Tachybradycardia syndrome (Acute) Hypotension (Acute) Dehydration (Acute) Hypomagnesemia (Acute) Acute kidney injury superimposed on chronic kidney disease (Acute) Symptomatic bradycardia (Acute) Chronic pancreatic insufficiency (Acute) Date of Admission: 07/30/20 Date of Discharge: 07/31/20 - Primary Discharge Diagnosis Acute Problems: Active Problems (Last Updated 07/16/20 @ 13:15 by Vandana Swanson) Near syncope-etiology unknown Atrial tachycardia Hypomagnesemia (Acute) Acute kidney injury superimposed on chronic kidney disease stage III Chronic diarrhea-etiology unclear Coronary artery disease Bipolar disorder Chronic anemia-etiology unclear - Secondary Discharge Diagnosis Chronic Problems: Chronic Problems (Last Updated 07/16/20 @ 13:15 by Vandana Swanson) Presence of stent in coronary artery (Chronic ~03/09/20) Successful PCI of ostial RPDA, pRCA and mLAD with GEORGINA 03/09/20 Atherosclerotic heart disease of [place] coronary artery without angina pectoris (Chronic) Abnormal stress test (Chronic) Hyperlipidemia (Chronic) Type 2 diabetes mellitus (Chronic) Hypothyroidism (Chronic) Hypertension (Chronic) Bipolar disorder (Chronic) Depression (Chronic) Hospital Course and Treatment Operations: None Procedures: None Summary of Care Provided: The patient is a 65 year old F seen in the emergency room at [facility] with a chief complaint of a near syncopal episode, patient stated that she had been under a lot of stress at home and she also complained of generalized weakness. Work-up in the emergency room included an EKG which showed a sinus rhythm at a rate of 66 with PACs, chest x-ray showed nothing acute, hemoglobin was 9.6, magnesium was 1.3, BUN was 22 and creatinine was 1.39. Troponin was normal. Patient was placed in observation status on PCU and monitored on telemetry. Patient had episodes of atrial tachycardia but no severe episodes of bradycardia. She was seen in consultation by cardiology who felt that the patient's medications should not be changed but that she should be set up for a 30-day Holter monitor. She also discussed with me her concerns about her chronic diarrhea, she had been put on pancreatic enzymes at the direction of her family physician but I noted that she was taking a large amount of Metformin and asked her to stop the Metformin to see if the diarrhea improved. I also told her that I did not feel the pancreatic enzymes were doing any good-patient did not think they were doing any good either. On examination she appeared in good health and spirits, she does not appear to be in any distress. Vital signs as documented. Skin warm and dry and without overt rashes. Neck without JVD, thyroid appears normal, trachea is midline, neck is supple. Lungs clear, normal air movement was noted. Heart exam notable for regular rhythm, normal sounds and absence of murmurs, rubs or gallops. Abdomen unremarkable and without evidence of organomegaly, masses, or abdominal aortic enlargement, bowel sounds are present in all 4 quadrants, no abdominal tenderness was noted. Extremities nonedematous, no cyanosis was noted, no clubbing was noted. Neuro: Cranial nerves II through XII are grossly intact, no focal motor deficits were noted, sensation to light touch and pinprick is intact, motor exam 5/5 throughout. Psych: Patient is alert and oriented x3, she does not appear anxious or depressed, she does not appear agitated. Patient was discharged in stable condition on 07/31/2020, she was given a prescription for a 30-day Holter and it was sent down to the cardiac department to set this up for her as an outpatient. The monitor will be mailed to her home and she will follow up with cardiology as an outpatient. Patient Problems: Active and Suspected Problems (Last Updated 07/16/20 @ 13:15 by Vandana Swanson) Near syncope (Acute) Tachybradycardia syndrome (Acute) Hypotension (Acute) Dehydration (Acute) Hypomagnesemia (Acute) Acute kidney injury superimposed on chronic kidney disease (Acute) Symptomatic bradycardia (Acute) Chronic pancreatic insufficiency (Acute) - Physical Exam Vitals/I&O's: Vital Signs Temp Pulse Resp BP Pulse Ox 98.0 F 59 L 18 116/47 L 95 07/31/20 09:29 07/31/20 10:59 07/31/20 09:29 07/31/20 10:08 07/31/20 09:29 Oxygen Delivery Method Room Air Weight: 59.874 kg Body Mass Index (BMI) 25.7 Intake and Output for Last 24 Hours 07/30/20 07/31/20 08/01/20 23:59 23:59 23:59 Intake Total 1104 / 1104 2300 / 2300 Output Total 500 / 500 900 / 900 Balance 604 / 604 1400 / 1400 Discharge Activity: Return to Normal Activity Weight Bearing Status: Full weight bearing Home Medications: Medications to take at Discharge Allopurinol 100 mg PO QHS 03/04/20 Divalproex Sodium 125 mg PO BID 03/04/20 Gabapentin [Neurontin] 600 mg PO TID 03/04/20 Hydroxyzine HCl 25 mg PO DAILY PRN PRN 03/04/20 Insulin Glargine [Lantus SoloStar Pen] 40 units SQ QHS 03/04/20 Levothyroxine [Synthroid] 112 mcg PO DAILY 03/04/20 Pantoprazole Sodium [Protonix] 40 mg PO DAILY 03/04/20 Trazodone HCl 150 mg PO QHS 03/04/20 Aspirin E.C. [Ecotrin] 81 mg PO DAILY@0800 #30 tab 03/11/20 atorvastatin 80 mg tablet 80 mg PO QHS #90 tab 04/06/20 carvedilol 3.125 mg tablet 3.125 mg PO BID #180 tab 04/06/20 ticagrelor 90 mg tablet 90 mg PO BID #180 tab 04/06/20 amlodipine 2.5 mg tablet 2.5 mg PO DAILY #90 tab 05/13/20 Losartan Potassium 50 mg PO DAILY #30 tab 05/25/20 Dicyclomine HCl [Bentyl] 20 mg PO TIDAC #120 cap 07/31/20 Triamterene 37.5MG/Hctz 25MG [Maxzide 37.5 mg-25 mg Tablet] 1 ea PO DAILY #1 tab 07/31/20 Following Prescriptions Were Given to Patient: Dicyclomine HCl [Bentyl] 20 mg PO TIDAC #120 cap Transmission Status: Received by [id number] Triamterene 37.5MG/Hctz 25MG [Maxzide 37.5 mg-25 mg Tablet] 1 ea PO DAILY #1 tab Primary Care Physician: Pat Bennett MD [Primary Care Provider] - Please follow up with your Primary Care Physician in: in 1-2 weeks Disposition: Home Minutes spent on discharge:: 30 Patient Condition:: Stable Medical Necessity - Tobacco Use Smoking Status: Current every day smoker Tobacco Use: Cigarettes Meaningful Use Info Meaningful Use Diagnoses (Choose all that apply): None applicable OBSV E&M: 98142 Observation care discharge
== END 2020-07-31 12:22 | disposition home or self-care (01) ==
LOC: ED 20:34 → PCU 21:47
PROVIDERS: Admitting Provider Internal Medicine; Emergency Provider Emergency Medicine; PCP Internal Medicine; Visit Provider Internal Medicine
DX: I49.5 Sick sinus syndrome (principal); R55 Syncope and collapse; E86.0 Dehydration; N17.9 Acute kidney failure, unspecified; D63.8 Anemia in other chronic diseases classified elsewhere; F41.9 Anxiety disorder, unspecified; M10.9 Gout, unspecified; I25.10 Atherosclerotic heart disease of native coronary artery without angina pectoris; I12.9 Hypertensive chronic kidney disease with stage 1 through stage 4 chronic kidney disease, or unspecified chronic kidney disease; E11.22 Type 2 diabetes mellitus with diabetic chronic kidney disease; E78.5 Hyperlipidemia, unspecified; I49.1 Atrial premature depolarization; R94.31 Abnormal electrocardiogram [ECG] [EKG]; M15.9 Polyosteoarthritis, unspecified; E03.9 Hypothyroidism, unspecified; F31.9 Bipolar disorder, unspecified; Z95.5 Presence of coronary angioplasty implant and graft; Z79.899 Other long term (current) drug therapy; Z79.4 Long term (current) use of insulin; Z79.82 Long term (current) use of aspirin; F17.210 Nicotine dependence, cigarettes, uncomplicated
CPT/HCPCS: 36415; 71045; 80048; 82728; 82962; 83540; 83550; 83735; 84100; 84439; 84443; 84484; 85025; 93005; 96360; 96361; 99218; 99285; 99406; J7120; A4216; G0378

== ENCOUNTER → 2020-09-30 14:58 | Outpatient (CLI) | payer MEDICARE, SELFPAY ==
[2020-06-04 12:24] VITALS: BMI 26.4
[2020-09-30 14:00] VITALS: BMI 25.7
[2020-09-30 15:48] LABS: Absolute Lymphocyte Count 2.02 X10^3/uL (0.83-4.51); Absolute Neutrophil Count 5.4 X10^3/uL (2.0-7.7); Basophil# 0.05 X10^3/uL; Basophil% 0.6 % (0-1); Eosinophils% 3.6 % (0-5); Hematocrit 34.1 % (37-47); Hemoglobin 10.9 g/dL (12.0-15.0); Lymphocyte # 2.02 X10^3/ul (0.83-4.51); Lymphocyte % 24.4 % (19-41); Mean Corpuscular Hgb 30.1 pg (27.0-32.0); Mean Corpuscular Volume 94.2 fL (81-99); Mean Platelet Vol. 9.4 fl (6.2-12.0); Monocyte# 0.52 X10^3/uL; Monocyte% 6.3 % (0-10); NRBC Flagged by Analyzer 0 % (0-5); Neutrophil # 5.35 X10^3/uL (2.7-7.7); Neutrophil % 64.6 % (47-70); Platelet Count 442 K/mm3 (150-450); RBC Distribution Width CV 13.7 % (11.6-14.6); RBC Distribution Width SD 47.3 fl (35.1-43.9); Red Blood Count 3.62 M/mm3 (4.2-5.4); White Blood Count 8.3 K/mm3 (4.4-11.0)
[2020-09-30 16:04] LABS: Anion Gap 5 (5-15); BUN 22 mg/dL (7-18); BUN/Creat Ratio 17.7 RATIO (10-20); Chloride 102 mmol/L (98-107); Creatinine, Serum 1.24 mg/dL (0.55-1.02); EST Glomerular Filtration Rate 46 mL/min (>60); Est Glom Filt Rate - Afr Amer 56 mL/min (>60); Glucose 124 mg/dL (74-106); Potassium 4.3 mmol/L (3.5-5.1); Sodium Level 135 mmol/L (136-145)
[2020-09-30 16:08] LABS: BNP,B-Type NATRIURETIC PEPTIDE 13.4 pg/mL (0-100)
== END ==
PROVIDERS: PCP Internal Medicine; Visit Provider Nurse Practitioner Family
DX: E86.0 Dehydration (principal); R06.00 Dyspnea, unspecified; E83.42 Hypomagnesemia; I10 Essential (primary) hypertension; I25.10 Atherosclerotic heart disease of native coronary artery without angina pectoris; Z95.5 Presence of coronary angioplasty implant and graft
CPT/HCPCS: 36415; 80048; 83880; 85025

== ENCOUNTER → 2020-10-13 07:01 | Outpatient (CLI) | payer MEDICARE, MEDICAID, SELFPAY ==
[2020-06-04 12:24] VITALS: BMI 26.4
[2020-09-30 14:00] VITALS: BMI 25.7
--- NOTE | 2020-10-13 07:06 | ECHOD_ITS ---
Reason For Study: DYSPNEA/SOB Procedure This was a 2D Doppler, Color Flow transthoracic echocardiogram. The study was technically difficult. Exam performed in department. Left Ventricle Normal LV size. Left ventricular systolic function is normal. The estimated ejection fraction is 65 %. Diastolic function is indeterminate. No regional wall motion abnormalities noted. Right Ventricle Normal RV size. Normal systolic function. Atria Normal left atrium. Normal right atrium. No doppler evidence for ASD. Mitral Valve There is no mitral annular calcification. Normal mitral valve. Mild (1+) mitral valve insufficiency. Tricuspid Valve Normal tricuspid valve. Trivial tricuspid valve insufficiency. Unable to estimate RV systolic pressure/pulmonary artery pressure due to technically difficult study. Aortic Valve Trisinus/trileaflet aortic valve. Mild focal aortic valve calcification. Aortic valve sclerosis/mild aortic valve stenosis (based upon mean gradient). Pulmonic Valve The pulmonic valve is not well visualized. Trivial pulmonic valve insufficiency. Great Vessels Normal sized aortic root. Calcified aortic root. Pericardium/Pleural No pericardial effusion. MMode/2D Measurements & Calculations LVIDd: 4.6 cm IVSd: 1.1 cm Ao root diam: 2.7 cm LVIDs: 2.8 cm LVPWd: 1.0 cm RVDd: 2.8 cm FS: 38.0 % LAV(MOD-bp): 43.0 ml LA A4 area: 16.4 cm2 LA dimension(2D): 3.2 cm LAV(MOD-bp) Indexed: 27.5 ml/m2 LAV(MOD-sp2): 41.9 ml LAV(MOD-sp4): 45.1 ml RA A4 area: 14.3 cm2 Time Measurements MV dec time: 0.22 sec Doppler Measurements & Calculations MV E max ralf: 89.9 cm/sec Lat Peak E' Ralf: 9.0 cm/sec Med Peak E' Ralf: 6.8 cm/sec MV A max ralf: 83.7 cm/sec E/E' lat: 10.0 E/E' med: 13.3 MV E/A: 1.1 Ao V2 max: 171.4 cm/sec LV V1 max: 103.7 cm/sec PA V2 max: 89.7 cm/sec Ao max P.8 mmHg LV V1 max P.3 mmHg Ao V2 mean: 117.0 cm/sec LV V1 mean P.5 mmHg Ao mean P.1 mmHg LV V1 mean: 75.3 cm/sec Ao V2 VTI: 40.7 cm LV V1 VTI: 28.0 cm ECHO/Echo Complete Interpretation Summary The study was technically difficult. Left ventricular systolic function is normal. The estimated ejection fraction is 65 %. Mild (1+) mitral valve insufficiency. Trivial tricuspid valve insufficiency. Aortic valve sclerosis/mild aortic valve stenosis (based upon mean gradient) Trivial pulmonic valve insufficiency. Calcified aortic root. Unable to estimate RV systolic pressure/pulmonary artery pressure due to techni shana difficult study. Diastolic function is indeterminate. Ordering Physician: Marcin Garrido Referring Physician: Pat Bennett Performed By: Maria De Jesus Grubbs RDCS, RVT
--- NOTE | 2020-10-13 12:20 | STRESSREP_ITS ---
Stress Test Report Date: 10-13-2020 Procedure: Pharmacologic stress nuclear imaging study Indications: Chest pain; CAD; PCI Consent: Per the patient Procedure: The patient underwent pharmacologic (Regadenoson 0.4mg ) evaluation with a peak heart rate of 77 beats per minute (49%predicted maximal heart rate) and a peak blood pressure of 128/68 mmHg. The baseline ECG demonstrated sinus bradycardia; nonspecific ST/T wave abnormality. The peak pharmacologic ECG demonstrated no obvious ECG changes. There was an isolated PVC during recovery. The patient noted headache, mild left-sided chest discomfort, and shortness of breath during recovery with spontaneous resolution to baseline. The examination was discontinued secondary to completion of protocol. Impression: 1. Pharmacologic (Regadenoson) evaluation 2. Peak pharmacologic ECG with continued nonspecific ST/T wave abnormality with no obvious ECG changes. 3. There was an isolated PVC during recovery. 4. Nuclear images pending Myocardial perfusion imaging study: Technique: The patient was injected with 11.2 millicuries of technetium 99m Cardiolite and subsequently rest SPECT Cardiolite nuclear imaging was obtained in the horizontal long, vertical long, and short axis views. The patient underwent pharmacologic (Regadenoson) evaluation with a peak heart rate of 77 beats per minute (49% percent predicted maximal heart rate) and a peak blood pressure of 128/68 mmHg. The patient was injected with 32.5 millicuries of technetium 99m Cardiolite and subsequently stress SPECT Cardiolite nuclear imaging was obtained in the horizontal long, vertical long, and short axis views. A gated Cardiolite study at peak stress was obtained. Interpretation: Rest and stress SPECT Cardiolite nuclear imaging status post realignment, normalization, and attenuation correction demonstrate relative uniform tracer uptake and myocardial perfusion appearing within normal limits. There is end systolic thickening and brightening. The gated Cardiolite study demonstrates myocardial thickening and inward wall motion. The reported LVEF is 68%. Impression: 1. Rest and stress SPECT Cardiolite nuclear imaging demonstrate relative uniform tracer uptake and myocardial perfusion appearing within normal limits. 2. The gated Cardiolite study reports an LVEF of 68%. This note was generated with [email or web address] software. It may contain incorrect words, spelling, and punctuation that were not noted in checking the note before signing.
== END ==
PROVIDERS: PCP Internal Medicine; Referring Provider Nurse Practitioner Family; Visit Provider Nurse Practitioner Family
DX: R07.9 Chest pain, unspecified (principal); R06.00 Dyspnea, unspecified; R06.02 Shortness of breath; I25.10 Atherosclerotic heart disease of native coronary artery without angina pectoris; I10 Essential (primary) hypertension; Z95.5 Presence of coronary angioplasty implant and graft
CPT/HCPCS: 78452; 93017; 93306; A9500; A4216; J2785

== ENCOUNTER → 2021-01-07 14:14 | Outpatient (CLI) | payer MEDICARE, MEDICAID, SELFPAY ==
[2020-06-04 12:24] VITALS: BMI 26.4
[2021-01-07 15:27] LABS: Absolute Lymphocyte Count 1.98 X10^3/uL (0.83-4.51); Absolute Neutrophil Count 6.5 X10^3/uL (2.0-7.7); Basophil# 0.08 X10^3/uL; Basophil% 0.9 % (0-1); Eosinophil# 0.21 X10^3/uL; Eosinophils% 2.3 % (0-5); Hematocrit 35.5 % (37-47); Hemoglobin 11.3 g/dL (12.0-15.0); Lymphocyte # 1.98 X10^3/ul (0.83-4.51); Lymphocyte % 21.3 % (19-41); Mean Corp Hgb Conc 31.8 g/dL (32-36); Mean Corpuscular Hgb 30.5 pg (27.0-32.0); Mean Corpuscular Volume 95.7 fL (81-99); Mean Platelet Vol. 9.9 fl (6.2-12.0); Monocyte# 0.49 X10^3/uL; Monocyte% 5.3 % (0-10); NRBC Flagged by Analyzer 0 % (0-5); Neutrophil # 6.47 X10^3/uL (2.7-7.7); Neutrophil % 69.7 % (47-70); Platelet Count 402 K/mm3 (150-450); RBC Distribution Width CV 14.8 % (11.6-14.6); Red Blood Count 3.71 M/mm3 (4.2-5.4); White Blood Count 9.3 K/mm3 (4.4-11.0)
[2021-01-07 15:57] LABS: Hemoglobin A1c 8.1 % (3.8-5.6)
[2021-01-07 15:58] LABS: Vitamin D,25 Hydroxy 37.5 ng/mL
[2021-01-07 16:00] LABS: AST(SGOT) 6 U/L (15-37); Alanine Aminotransfer ALT/SGPT 21 U/L (13-56); Albumin, Serum 3.8 g/dL (3.2-5.0); Alkaline Phosphatase 85 U/L (45-117); Anion Gap 7 (5-15); BUN 21 mg/dL (7-18); BUN/Creat Ratio 18.1 RATIO (10-20); Calcium,Total 8.8 mg/dL (8.5-10.1); Chloride 100 mmol/L (98-107); Cholesterol 227 mg/dL (200); Creatinine, Serum 1.16 mg/dL (0.55-1.02); EST Glomerular Filtration Rate 50 mL/min (>60); Est Glom Filt Rate - Afr Amer 60 mL/min (>60); Free T3 2.1 pg/mL (2.18-3.98); Globulin 3.7 g/dL (2.2-4.2); Glucose 231 mg/dL (74-106); High Density Lipoprotein 50 mg/dL; Potassium 4.7 mmol/L (3.5-5.1); Protein, Total 7.5 g/dL (6.4-8.2); Sodium Level 133 mmol/L (136-145); T4 Free Direct 1.13 ng/dL (0.76-1.46); Triglycerides 452 mg/dL
== END ==
PROVIDERS: PCP Internal Medicine; Referring Provider Internal Medicine; Visit Provider Internal Medicine
DX: E11.9 Type 2 diabetes mellitus without complications (principal); E78.5 Hyperlipidemia, unspecified; F32.9 Major depressive disorder, single episode, unspecified; I10 Essential (primary) hypertension; I25.10 Atherosclerotic heart disease of native coronary artery without angina pectoris; E55.9 Vitamin D deficiency, unspecified; R00.1 Bradycardia, unspecified
CPT/HCPCS: 36415; 80053; 80061; 82306; 83036; 84439; 84443; 84481; 85025

== ENCOUNTER → 2021-02-08 12:33 | Outpatient (CLI) | payer MEDICARE, MEDICAID, SELFPAY ==
[2020-06-04 12:24] VITALS: BMI 26.4
[2021-02-08 13:03] LABS: Absolute Lymphocyte Count 1.61 X10^3/uL (0.83-4.51); Basophil# 0.08 X10^3/uL; Basophil% 0.7 % (0-1); Eosinophil# 0.23 X10^3/uL; Hematocrit 34.2 % (37-47); Hemoglobin 11.5 g/dL (12.0-15.0); Lymphocyte # 1.61 X10^3/ul (0.83-4.51); Lymphocyte % 13.9 % (19-41); Mean Corp Hgb Conc 33.6 g/dL (32-36); Mean Corpuscular Hgb 31.3 pg (27.0-32.0); Mean Corpuscular Volume 92.9 fL (81-99); Mean Platelet Vol. 9.4 fl (6.2-12.0); Monocyte# 0.62 X10^3/uL; Monocyte% 5.4 % (0-10); NRBC Flagged by Analyzer 0 % (0-5); Neutrophil # 8.96 X10^3/uL (2.7-7.7); Neutrophil % 77.4 % (47-70); Platelet Count 431 K/mm3 (150-450); RBC Distribution Width CV 14.6 % (11.6-14.6); RBC Distribution Width SD 49.8 fl (35.1-43.9); Red Blood Count 3.68 M/mm3 (4.2-5.4); White Blood Count 11.6 K/mm3 (4.4-11.0)
[2021-02-08 13:14] LABS: International Normalized Ratio 1.5; Prothrombin Time (Protime)PT. 16.9 SECONDS (11.7-14.9)
[2021-02-08 13:28] LABS: Anion Gap 9 (5-15); BUN 24 mg/dL (7-18); Calcium,Total 9.4 mg/dL (8.5-10.1); Chloride 97 mmol/L (98-107); Creatinine, Serum 1.33 mg/dL (0.55-1.02); EST Glomerular Filtration Rate 43 mL/min (>60); Est Glom Filt Rate - Afr Amer 52 mL/min (>60); Glucose 230 mg/dL (74-106); Potassium 4.5 mmol/L (3.5-5.1); Sodium Level 133 mmol/L (136-145)
== END ==
PROVIDERS: PCP Internal Medicine; Referring Provider Nurse Practitioner Family; Visit Provider Nurse Practitioner Family
DX: Z01.818 Encounter for other preprocedural examination (principal); I25.10 Atherosclerotic heart disease of native coronary artery without angina pectoris; Z95.5 Presence of coronary angioplasty implant and graft; R07.9 Chest pain, unspecified; I10 Essential (primary) hypertension
CPT/HCPCS: 36415; 80048; 85025; 85610

== ENCOUNTER 2021-02-16 09:09 | Day surgery (SDC) | payer MEDICARE, MEDICAID, SELFPAY ==
[2020-06-04 12:24] VITALS: BMI 26.4
--- NOTE | 2021-02-08 12:13 | RAD_ITS ---
INDICATION: pre-operative evaluation EXAMINATION/TECHNIQUE: X-RAY - XR Chest 2 Views COMPARISON: None. FINDINGS: The lungs are clear. The cardiomediastinal silhouette is unremarkable. No pleural effusion or pneumothorax. No acute osseous abnormalities. RAD/Chest PA and Lateral IMPRESSION: No acute radiographic abnormalities. Electronically Signed: Fox Frank MD at 23:34 EDT Tel , Service support ,
[2021-02-15 08:30] VITALS: BMI 25.4
--- NOTE | 2021-02-15 17:47 | HP.PCM_ITS ---
History and Physical Date of Admission: 02/16/21 [facility] [address] [place] [address] [phone] OFFICE VISITDate of Service: 02/08/21 MR#:[id number]:[id number]: ASIF CASTRO #:[id number] Provider: SILVIA Alex RoofAge/Sex: 65/F Lo cation:BMS.WHGStatus:Signed HPI HPI History of Present Illness Surgical H&P: Yes Details: This is a 65-year-old female who presents to the office today for a cardiovascular outpatient follow-up. She has a history of myocarditis in the , coronary artery disease status post PCI to ostial RPDA, pRCA and mLAD with GEORGINA on 03/09/2020, hypertension, hyperlipidemia, diabetes mellitus, hypothyroidism, paroxysmal atrial fibrillation, and chronic pancreatic insufficiency with chronic diarrhea. Patient presented [facility] in February 2020 with dizziness, lightheadedness, near syncope, and a cold. Prior to discharge she expressed chest pain. She underwent a stress test that was considered to be abnormal. She underwent a heart catheterization on 03/06/2020 that showed [place] multivessel coronary artery disease. She underwent staged procedure on 03/09/2020 that resulted in drug-eluting stenting x3 to ostial RPDA, proximal RCA, and mid LAD. At last office appointment on 09/30/2020 patient expressed chest discomfort. She underwent a stress test on 10/09/2020 that was negative for ischemia. She saw primary care provider on 01/07/2021 and continued to express chest discomfort. She states noting chest pain mostly with exertion such as walking her dog and times of stress. This is a sharp discomfort on her left chest that radiates to her left arm. This resolves with time and rest. This resolves within approximately in 30 minute and is worsening in that it occurs more often and lasts longer. This is associated with nausea and diaphoresis. She states feeling I could drop to the floor. She rates this a 8-10. She questions if her nausea and diaphoresis is blood sugar related. She continues with shortness of breath with exertion that improves with rest. This occurs with speaking for long periods as well. She states orthopnea. She states dizziness with exertion and feeling off balanced. She states reduced energy and lower activity. She states reduced appetite. Intake Vital Signs 02/08/21 11:21 Height 5 ft Weight: 130 lb BMI 25.4 BP 107/65 Blood Pressure Location Lt brachial Position Sitting Respiration 18 Pulse 55 L Pulse Source Monitor Pulse Oximetry (%) 98 Intake Visit Reasons: UPDATED H&P Personal Injury Litigation Paralegal Required: No Is patient in pain?: No Allergies duloxetine [From Cymbalta] Allergy (Verified 02/03/21 13:02) Itching tomato Allergy (Verified 02/03/21 13:02) Itching Medications ticagrelor 90 mg tablet 90 mg PO BID #180 tab 04/06/20 [Rx Confirmed 02/08/21] amlodipine 2.5 mg tablet 2.5 mg PO DAILY #90 tab 05/13/20 [Rx Confirmed 0 02/08/21] allopurinol 100 mg tablet 100 mg PO QHS #90 tablet 08/20/20 [Rx Confirmed 02/08/21] atorvastatin 80 mg tablet 80 mg PO QHS #90 tab 08/20/20 [Rx Confirmed 02/08/21] divalproex 125 mg capsule,delayed release sprinkle 125 mg PO BID #180 cap 08/20/20 [Rx Confirmed 02/08/21] gabapentin 300 mg capsule 600 mg PO TID #540 cap 08/20/20 [Rx Confirmed 02/08/21] levothyroxine 112 mcg tablet 112 mcg PO DAILY #90 tablet 08/20/20 [Rx Confirmed 02/08/21] pantoprazole 40 mg tablet,delayed release 40 mg PO DAILY #90 tablet 08/20/20 [Rx Confirmed 02/08/21] triamterene 37.5 mg-hydrochlorothiazide 25 mg tablet 1 tab PO DAILY #90 tablet 08/20/20 [Rx Confirmed 02/08/21] albuterol sulfate 90 mcg/actuation aerosol inhaler 2 puff INHALATION Q6H PRN 08/31/20 [History Confirmed 02/03/21] losartan 50 mg tablet 50 mg PO DAILY #14 tablet 08/31/20 [Rx Confirmed 02/08/21] pen needle, diabetic 31 gauge x 5/16 #100 each 08/31/20 [Rx Confirmed 02/03/21] trazodone 150 mg tablet 150 mg PO QHS #14 tablet 08/31/20 [Rx Confirmed 02/08/21] carvedilol 6.25 mg tablet 6.25 mg PO BID #180 tab 09/18/20 [Rx Confirmed 02/08/21] apixaban 5 mg tablet 5 mg PO BID #180 tab 09/30/20 [Rx Confirmed 02/08/21] blood-glucose meter #1 ea 11/11/20 [Rx Confirmed 02/03/21] blood sugar diagnostic #300 ea 11/12/20 [Rx Confirmed 02/03/21] lancets #300 ea 11/12/20 [Rx Confirmed 02/03/21] hydroxyzine HCl 25 mg tablet 25 mg PO DAILY PRN PRN #14 tablet 12/03/20 [Rx Confirmed 02/08/21] insulin glargine 100 unit/mL (3 mL) subcutaneous pen 30 unit SC QHS #15 ml 01/07/21 [Rx Confirmed 02/08/21] sitagliptin 50 mg tablet 50 mg PO DAILY #30 tab 01/07/21 [Rx Confirmed 02/08/21] nitroglycerin 0.4 mg sublingual tablet 0.4 mg SUBLINGUAL Q5-15M PRN #25 tab 01/11/21 [Rx Confirmed 02/08/21] aspirin 81 mg tablet,delayed release 81 mg PO QDAY #30 tab 02/08/21 [Rx Confirmed 02/08/21] [facility], [facility] Medical History (Updated 02/08/21 @ 12:57 by Marcin Garrido NP, [employer]) Atherosclerotic heart disease of [place] coronary artery without angina pectoris Generalized OA Presence of stent in coronary artery (~03/09/20) Surgical History (Reviewed 02/08/21 @ 12:55 by Marcin Garrido [employer], [employer]-C) History of laparoscopic appendectomy History of total abdominal hysterectomy Hx of cholecystectomy Hx of shoulder surgery Family History (Reviewed 02/08/21 @ 12:55 by Marcin Garrido [employer], [employer]-C) Sister COPD (chronic obstructive pulmonary disease) Mother COPD (chronic obstructive pulmonary disease) Hypertension Alzheimer's dementia without behavioral disturbance Alzheimer's dementia Father Diabetes Hypertension Myocardial infarction Social History (Reviewed 02/08/21 @ 12:55 by Marcin Garrido [employer], [employer]-C) Smoking Status: Current every day smoker tobacco type: cigarettes alcohol intake: never substance use type: does not use what type of physical activity do you participate in: none ROS Const Const: Positive for fatigue, weakness and excessive sweating; Negative for body ache, fever(s) or chills ENT ENT: Positive for balance problems; Negative for dizziness or Nosebleed/epistaxis Cardio Chest Pain: Yes Palpitations: No Edema: None Muscle aches with walking: None Resp Respiratory: Positive for SOB with activity and SOB orthopnea\SOB lying down; Negative for SOB at rest, Cough or paroxysmal nocturnal dyspnea GI GI: Positive for nausea; Negative vomiting blood/hematemesis, bright, red blood in stools or black,tarry stools : Negative for hematuria or frequent nighttime urination/ nocturia Musc Musc: Positive for balance problems; Negative for muscle aches/ myalgia Skin Skin: Negative non-healing lesions or rash Neuro Neuro: Positive for weakness; Negative for dizziness, lightheadedness, near syncope, syncope or orthostatic symptoms Endo Endo: Positive for fatigue and excessive sweating Allergy Allergy/Immunology: Negative for rash Cardiology Exam Const Appearance: cooperative, healthy appearing, comfortable and no acute distress Nutritional Appearance: well nourished and overweight Orientation: alert, awake and oriented x3 Head Head: normal to inspection Ears: hearing grossly normal bilaterally Nose: external nose normal Face and Sinus: face symmetric Mouth: oral mucosae normal Eyes General: appearance normal, both eyes and all related structures Eyelids: eyelids normal EOM: EOM intact bilaterally Neck Neck: normal visual inspection and no JVD Carotids: normal carotid upstroke Chest Chest inspection: normal inspection of the chest, symmetric chest movement and normal respiratory effort; Negative cough Auscultation: Bilateral: Clear to Auscultation Cardio Rate: regular rate Rhythm: regular rhythm Heart sounds: S1 normal and S2 normal; Negative rub, gallop or murmur GI GI: normal to inspection Neuro General: patient alert, patient awake, patient oriented x3 and CN's II-XI intact bilaterally Skin Skin: no rashes or lesions noted Extremities Pulses: Normal: Right Posterior Tibial Pulse, Left Posterior Tibial Pulse, Right Radial Pulse and Left Radial Pulse Lower Extremity Edema: None: Bilateral Psych Psychological: normal affect Assessment and Plan Assessment and Plan (1) Atherosclerotic heart disease of [place] coronary artery without angina pectoris: Status: Chronic Qualifiers: [place] vs. transplanted heart: [place] heart Qualified Code(s): I25.10 - Atherosclerotic heart disease of [place] coronary artery without angina pectoris Plan - Marcin Garrido [employer], [employer]-C: Patient continues to express chest pain with concerning features. Her last stress test in September 2020 was negative for ischemia and showed nonspecific ST/T wave changes. Her heart catheterization showed residual 50% circumflex disease. It is unclear if this is contributing to her symptoms and/or new coronary artery disease concerns. It was discussed with her in regards to beginning isosorbide or increasing amlodipine therapy. However, her blood pressure is on the lower side and thus it was decided not to add such medications due to multiple medications that may need to be adjusted for blood pressure concerns. However, if her chest pain worsens, this may remain an option, including Ranexa. Her EKG today in office shows sinus bradycardia rate of 57 bpm, SC interval 150, and QTc 403. There are no acute ST or T wave changes, but nonspecific T wave changes. (2) Presence of stent in coronary artery: Status: Chronic Comment: Successful PCI of ostial RPDA, pRCA and mLAD with GEORGINA 03/09/20 Plan - Marcin Garrido [employer], [employer]-C: She will continue current medical therapy which includes amlodipine, Eliquis, atorvastatin, carvedilol, losartan, and Brilinta. She is currently not on aspirin therapy due to Eliquis and Brilinta therapy. She will temporarily start Eliquis day prior to heart catheterization. If no intervention is required, she will be able to discontinue such. She will hold her Eliquis approximately 4 days prior to heart catheterization. (3) Paroxysmal atrial fibrillation: Status: Chronic Orders: Orders: 12 Lead EKG performed by BMS Today Plan - Marcin Garrido [employer], [employer]-C: Patient's EKG today in office shows sinus bradycardia at a rate of 57 bpm, SC interval 158, QTc 403, and QRS 100. There are T wave changes in leads II, III, V3, V4, V5, and V6. These are not new findings compared to previous ECG. She will continue with Eliquis therapy for CVA protection. She will continue with carvedilol for rate control. We will continue to monitor. (4) Hypertension: Status: Chronic Qualifiers: Hypertension type: essential hypertension Qualified Code(s): I10 - Essential (primary) hypertension Plan - Marcin Garrido [employer], [employer]ER-C: Patient's blood pressure is well-controlled. We will continue to monitor. We will not make any medication regimen changes. (5) Hyperlipidemia: Status: Chronic Qualifiers: Hyperlipidemia type: unspecified Qualified Code(s): E78.5 - Hyperlipidemia, unspecified Plan - Marcin Garrido NP, [employer]: She will continue atorvastatin 80 mg p.o. nightly. Plan Details Other Medications: New: aspirin (Adult Aspirin Regimen) For [facility]: start 02/15/2021; 81 mg PO QDAY 30 tabs 0RF On Hold: apixaban (Eliquis) Hold Comment: [facility]; hold 02/12 5 mg PO BID 180 tabs 3RF Additional Comments: Thank you for allowing us to participate in the patients plan of care, if you have any questions please do not hesitate to call. This note was generated using a voice recognition system and there may be incorrect words, spelling or punctuation that were not noted when reviewing the office note prior to saving. Follow Up: 10-12 Months (PFM) 3 Months ([employer]ER/PA) Coding Level of Care Code Off vis,est,level 3 Diagnoses Atherosclerotic heart disease of [place] coronary artery without angina pectoris I25.10 [place] vs. transplanted heart: [place] heart Presence of stent in coronary artery Z95.5 Paroxysmal atrial fibrillation I48.0 Hypertension I10 Hypertension type: essential hypertension Hyperlipidemia E78.5 Hyperlipidemia type: unspecified Coding Level of Care Code Off vis,est,level 3 Diagnoses Atherosclerotic heart disease of [place] coronary artery without angina pectoris I25.10 [place] vs. transplanted heart: [place] heart Presence of stent in coronary artery Z95.5 Paroxysmal atrial fibrillation I48.0 Hypertension I10 Hypertension type: essential hypertension Hyperlipidemia E78.5 Hyperlipidemia type: unspecified Supplemental Info Supplemental Information Echocardiogram from 10/13/2020: Interpretation Summary The study was technically difficult. Left ventricular systolic function is normal. The estimated ejection fraction is 65 %. Mild (1+) mitral valve insufficiency. Trivial tricuspid valve insufficiency. Aortic valve sclerosis/mild aortic valve stenosis (based upon mean gradient) Trivial pulmonic valve insufficiency. Calcified aortic root. Unable to estimate RV systolic pressure/pulmonary artery pressure due to technically difficult study. Diastolic function is indeterminate. Echocardiogram from 03/06/2020: Interpretation Summary Normal LV size. Concentric left ventricular hypertrophy. Left ventricular systolic function is normal. The estimated ejection fraction is 65 %. Normal diastology for age. No regional wall motion abnormalities noted. Presence of subvalvular membrane, mild gradient across the LVOT Mean aortic valve gradient 16.2 mmHg. Unable to estimate RV systolic pressure due to insufficient tricuspid regurgitant envelope. Mild tricuspid valve insufficiency. Stress Test Report Date: 10-13-2020 Procedure: Pharmacologic stress nuclear imaging study Indications: Chest pain; CAD; PCI Consent: Per the patient Procedure: The patient underwent pharmacologic (Regadenoson 0.4mg ) evaluation with a peak heart rate of 77 beats per minute (49%predicted maximal heart rate) and a peak blood pressure of 128/68 mmHg. The baseline ECG demonstrated sinus bradycardia; nonspecific ST/T wave abnormality. The peak pharmacologic ECG demonstrated no obvious ECG changes. There was an isolated PVC during recovery. The patient noted headache, mild left-sided chest discomfort, and shortness of breath during recovery with spontaneous resolution to baseline. The examination was discontinued secondary to completion of protocol. Impression: 1. Pharmacologic (Regadenoson) evaluation 2. Peak pharmacologic ECG with continued nonspecific ST/T wave abnormality with no obvious ECG changes. 3. There was an isolated PVC during recovery. 4. Nuclear images pending Myocardial perfusion imaging study: Technique: The patient was injected with 11.2 millicuries of technetium 99m Cardiolite and subsequently rest SPECT Cardiolite nuclear imaging was obtained in the horizontal long, vertical long, and short axis views. The patient underwent pharmacologic (Regadenoson) evaluation with a peak heart rate of 77 beats per minute (49% percent predicted maximal heart rate) and a peak blood pressure of 128/68 mmHg. The patient was injected with 32.5 millicuries of technetium 99m Cardiolite and subsequently stress SPECT Cardiolite nuclear imaging was obtained in the horizontal long, vertical long, and short axis views. A gated Cardiolite study at peak stress was obtained. Interpretation: Rest and stress SPECT Cardiolite nuclear imaging status post realignment, normalization, and attenuation correction demonstrate relative uniform tracer uptake and myocardial perfusion appearing within normal limits. There is end systolic thickening and brightening. The gated Cardiolite study demonstrates myocardial thickening and inward wall motion. The reported LVEF is 68%. Impression: 1. Rest and stress SPECT Cardiolite nuclear imaging demonstrate relative uniform tracer uptake and myocardial perfusion appearing within normal limits. 2. The gated Cardiolite study reports an LVEF of 68%. Heart Catheterization from 03/06/2020: CONCLUSIONS Elevated Left Ventricular End Diastolic Pressure Normal LV size, wall motion,and systolic function LVEF: by LV gram 75 % [place] Multivessel CAD RECOMMENDATIONS Risk factor modification Medical therapy Staged percutaneous intervention Case discussed / reviewed with Dr. Beaver and Dr. Fox of Interventional Cardiology CORONARY ANGIOGRAPHY DOMINANCE: Right Dominant LEFT HEART ASSESSMENT Left Ventricular Ejection Fraction: by LV Gram 75 % Normal LV wall motion Elevated Left Ventricular End Diastolic Pressure LVEDP: 16 mmHg LEFT MAIN: proximal: smooth: 25 % Stenosis LEFT ANTERIOR DESCENDING ARTERY: MID LAD: long: diffuse: 75 % Stenosis CIRCUMFLEX ARTERY: Mild luminal irregularities MID CIRC: 50 % Stenosis RIGHT CORONARY ARTERY: PROX RCA: Mild calcification, 50 - 75 % Stenosis DISTAL RCA: Mild luminal irregularities RT PDA: Ostial - 75 % Stenosis COMPLICATIONS No Complications Cardiac intervention from 03/09/2020: CONCLUSIONS Successful PCI of ostial RPDA, pRCA and mLAD with GEORGINA Labs: LDL Cholesterol TNP HDL Cholesterol 50 mg/dL (40-) Triglycerides 452 mg/dL (-199) H VLDL Cholesterol TNP Diagnostics: Electrocardiogram Echocardiogram Stress Test NM Stress Test Pulmonary: No Data to Display 02/08/21 1258<Electronically signed by Marcin DE LOS SANTOSC>Date Marcin VEGA Cosigner Signature:Date (if applicable) CC: Dr. Pat Bennett MD ~ Assessment & Plan Addt'l Comments I have re-examined the patient. There are no clinical changes since date of exam.
--- NOTE | 2021-02-16 11:43 | CASEMGMT ---
According to the [facility] website, the following are in-network tertiary facilities: [facility], [place], [place], [place], [facility], [facility], [facility], [facility], and . Demarco [facility] CM
--- NOTE | 2021-02-16 11:57 | CL.D_ITS ---
Patient Name: ASIF CASTRO Study Date: 02/16/2021 Performing: Dani Farley MD Ht: 59.84 inches 152 cm : 1955 Wt: 130.07 lbs 59 kg Age: 65 Gender: female BSA: 1.55 PROCEDURE(S) PERFORMED MY26-MKN/COR/LV CLINICAL PROFILE AND INDICATIONS Indications: Worsening Angina Heart Failure: None Stress/Imaging Date: 10/13/2020tress Test with SPECT MPI: Negative Angina Classification Anginal Classification w/in 2 Weeks: CCS III CAD Presentations: Other: worsening angina CONCLUSIONS Elevated Left Ventricular End Diastolic Pressure Normal LV size, wall motion,and systolic function LVEF: by LV gram 60 % [place] Multivessel CAD RECOMMENDATIONS Risk factor modification Medical therapy Surgery consult for coronary revascularization DESCRIPTION OF PROCEDURE The patient arrived to the procedure lab. The risks and benefits of the procedure as well as a full d escription of our services here and current unavailability of surgical backup were fully explained to the patient and/or their significant other prior to the catheterization. The Timeout was completed, verifying the correct patient and procedure. The patient's procedural site was prepped and draped in the usual fashion. Local anesthetic was given subcutaneously to right radial region with Lidocaine 2% . Using a modified Seldinger technique, arterial access was obtained via the right radial artery, a 6 Fr sheath was inserted. Left Coronary Artery selective angiography was performed in multiple views u sing a 5 Fr. 4.0 Cassandra catheter. Right Coronary Artery selective angiography was then performed in mu ltiple views using a 5 Fr. 4.0 Cassandra catheter. Left Ventriculography was performed in LONGO projection using a 5 Fr. Pigtail catheter. LV to AO pullback pressures were then recorded.The arterial sheath was pulled and a TR Band was applied for hemostasis. Sheath flushed prior to removal. 10cc air inserted. CORONARY ANGIOGRAPHY DOMINANCE: Right Dominant LEFT HEART ASSESSMENT Left Ventricular Ejection Fraction: by LV Gram 60 % Normal LV wall motion Elevated Left Ventricular End Diastolic Pressure LVEDP: 29 mmHg LEFT MAIN: proximal: smooth: 25 % Stenosis LEFT ANTERIOR DESCENDING ARTERY: PROX LAD: pre stent: eccentric: 85 % Stenosis, Previously placed stent is patent DIAGONAL 1: Proximal - Mild luminal irregularities CIRCUMFLEX ARTERY: Mild luminal irregularities DISTAL CIRC: 50 % Stenosis RIGHT CORONARY ARTERY: Mild luminal irregularities PROX RCA: Previously placed stent is patent MID RCA: eccentric: 25 % Stenosis DISTAL RCA: eccentric: hazy: 50 % Stenosis RT PDA: Ostial - 85 % Stenosis, Proximal - Previously placed stent is patent AORTIC ROOT: Angiographically normal COMPLICATIONS No Complications PROCEDURE MEDICATIONS Fentanyl 50 mcg IV Versed 1 mg IV Oxygen: 2 L/min via nasal cannula Heparin given IA 02/16/2021 10:47:57 Verapamil 2.5mg, Ntg 100mcgs, 3000 units of Heparin given IA 02/16/2021 10:47:57 SUMMARY OF HEMODYNAMIC DATA Time AIR REST ECG 09:29:08 AO 119/66 (93) SA 10:49:42 LV 132/4, 26 11:00:06 LV 142/0, 29 11:00:11 LV 131/-3, 27 11:00:55 LV 130/-4, 27 11:01:01 LVp 136/-5, 28 11:01:08 AOp 129/56 (82) 11:01:13 Signed By Dani Farley MD On 02/16/2021 11:56:37 AM Dani Farley MD
== END 2021-02-16 13:05 | disposition home or self-care (01) ==
LOC: CLSP 09:10
PROVIDERS: PCP Internal Medicine; Referring Provider Nurse Practitioner Family; Visit Provider Internal Medicine Cardiovascular Disease
DX: I25.119 Atherosclerotic heart disease of native coronary artery with unspecified angina pectoris (principal); I10 Essential (primary) hypertension; E78.5 Hyperlipidemia, unspecified; E11.9 Type 2 diabetes mellitus without complications; E03.9 Hypothyroidism, unspecified; I48.0 Paroxysmal atrial fibrillation; F17.210 Nicotine dependence, cigarettes, uncomplicated; Z79.4 Long term (current) use of insulin; Z95.5 Presence of coronary angioplasty implant and graft; Z79.02 Long term (current) use of antithrombotics/antiplatelets; Z79.899 Other long term (current) drug therapy
CPT/HCPCS: 71046; 93458; 99152; 99153; J7040; Q9967; C1769; C1894

== ENCOUNTER 2021-03-15 11:52 | Emergency (ER) | payer MEDICARE, MEDICAID, SELFPAY ==
[2020-06-04 12:24] VITALS: BMI 26.4
[2021-03-15 12:03] VITALS: BP 155/83; PULSE 54; RESP 28; TEMP 36.9; O2SAT 99; BMI 25.5
--- NOTE | 2021-03-15 12:24 | EKG12_ITS ---
Test Reason : DIZZINESS Blood Pressure : / mmHG Vent. Rate : 051 BPM Atrial Rate : 051 BPM P-R Int : 154 ms QRS Dur : 084 ms QT Int : 460 ms P-R-T Axes : 075 -61 -55 degrees QTc Int : 423 ms Sinus bradycardia Left axis deviation ST & T wave abnormality, consider inferior ischemia ST & T wave abnormality, consider anterolateral ischemia Abnormal ECG Confirmed by LAURA LOPEZ, ADELINA ([id number]), editor in chief AZAEL THORNE ([id number]) on 03/17/2021 9:04:32 AM Referred By: ALIA/YOANA Confirmed By:ADELINA SANCHEZ MD
[2021-03-15 12:43] VITALS: BP 173/82; PULSE 53
[2021-03-15 12:44] LABS: Absolute Lymphocyte Count 1.57 X10^3/uL (0.83-4.51); Absolute Neutrophil Count 9.1 X10^3/uL (2.0-7.7); Basophil# 0.05 X10^3/uL; Basophil% 0.4 % (0-1); Eosinophil# 0.11 X10^3/uL; Hematocrit 35.9 % (37-47); Hemoglobin 12.2 g/dL (12.0-15.0); Lymphocyte # 1.57 X10^3/ul (0.83-4.51); Lymphocyte % 13.8 % (19-41); Mean Corpuscular Volume 91.1 fL (81-99); Mean Platelet Vol. 9.3 fl (6.2-12.0); Monocyte# 0.46 X10^3/uL; Monocyte% 4.1 % (0-10); NRBC Flagged by Analyzer 0 % (0-5); Neutrophil % 80.3 % (47-70); Platelet Count 432 K/mm3 (150-450); RBC Distribution Width CV 14.4 % (11.6-14.6); Red Blood Count 3.94 M/mm3 (4.2-5.4); White Blood Count 11.3 K/mm3 (4.4-11.0)
--- NOTE | 2021-03-15 12:44 | RAD_ITS ---
STUDY: X-RAY CHEST REASON FOR EXAM: Female, 65 years old. Stroke TECHNIQUE: Single AP portable view of the chest. COMPARISON: Comparison is made with prior study 02/08/2021. FINDINGS: EKG electrodes are seen. The lungs are clear and expanded. There is no demonstrated pleural abnormality. Normal size heart. Normal mediastinum and rita. Normal visualized pulmonary arteries. There is atherosclerotic calcification of the aortic arch with tortuosity. There are diffuse degenerative changes of the visualized thoracic spine. Normal visualized ribs, clavicles, and shoulders. Surgical clips are seen in the right upper quadrant. RAD/Chest 1 View (Portable) IMPRESSION: The lungs are clear. Electronically Signed: Lloyd Evans MD at 13:09 EDT , Service support ,
[2021-03-15 12:53] LABS: International Normalized Ratio 1.3; Prothrombin Time (Protime)PT. 15.7 SECONDS (11.7-14.9)
[2021-03-15 12:54] LABS: Partial Thromboplast Time 32.4 Seconds (24.1-36.2)
[2021-03-15 12:59] LABS: Anion Gap 11 (5-15); BUN 15 mg/dL (7-18); BUN/Creat Ratio 12.8 RATIO (10-20); Chloride 100 mmol/L (98-107); Creatinine, Serum 1.17 mg/dL (0.55-1.02); EST Glomerular Filtration Rate 49 mL/min (>60); Est Glom Filt Rate - Afr Amer 60 mL/min (>60); Estimated Creatinine Clearance 34.89 ml/min; Glucose 193 mg/dL (74-106); Potassium 3.7 mmol/L (3.5-5.1); Sodium Level 135 mmol/L (136-145)
[2021-03-15] MEDS: 0.9% Normal Saline 1,000 ML 999 ML IV (13:41)
[2021-03-15 13:45] LABS: Bacteria 0 SEEN /hpf (None Seen); Mucous, Urine 0 SEEN /hpf (<or=2+); Red Blood Cells-Urine 0 SEEN /hpf (0-5); White Blood Cells 0 SEEN /hpf (0-5)
[2021-03-15 13:47] LABS: Color, Urine Yellow (Yellow); Glucose, Dipstick Normal (Normal); Ketone-Dipstick 5 mg/dl (Negative); Leukocyte Esterase-Dipstick Negative /ul (Negative); Nitrite-Dipstick Negative (Negative); Occult Blood-Urine Negative /ul (Negative); Protein-Dipstick 30 mg/dl (Negative); Specific Gravity, Urine 1.005 (1.002-1.030); Urine Bilirubin Dipstick Negative (Negative); Urine Clarity Sl. Cloudy (Clear); Urine Urobilinogen Normal (Normal)
[2021-03-15 13:54] LABS: Squamous Epithelial Cells - UA 0-5 SEEN /hpf (5-10)
[2021-03-15 13:59] LABS: Troponin-I HS 9 pg/mL (3.0-54.0)
[2021-03-15 14:05] VITALS: BP 143/66; PULSE 64; RESP 20; O2SAT 100
--- NOTE | 2021-03-15 14:36 | EDS_ITS ---
HPI History of Present Illness Chief Complaint: Weakness Narrative Narrative: Patient is a 65-year-old female who states over the past 24 hours she has had generalized weakness. She states that there has been no nausea or vomiting diarrhea or dysuria. She denies any chest pain or shortness of breath. She does report she was recently diagnosed with thrush and placed on nystatin. However she says she is only had 1 or 2 doses of this. She denies any loss of blood in her stool or urine but with the generalized weakness sensation comes in for evaluation [facility] Medical History Atherosclerotic heart disease of [place] coronary artery without angina pectoris Diabetes Generalized OA Overweight (BMI 25.0-29.9) Polyneuropathy due to type 2 diabetes mellitus Presence of stent in coronary artery (~03/09/20) 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 GFR 30-59 Home Medications allopurinol 100 mg tablet 100 mg PO QHS #90 tablet 08/20/20 [Rx Last Taken Unknown] atorvastatin 80 mg tablet 80 mg PO QHS #90 tab 08/20/20 [Rx Last Taken Unknown] divalproex 125 mg capsule,delayed release sprinkle 125 mg PO BID #180 cap 08/20/20 [Rx Last Taken Unknown] gabapentin 300 mg capsule 600 mg PO TID #540 cap 08/20/20 [Rx Last Taken Unknown] levothyroxine 112 mcg tablet 112 mcg PO DAILY #90 tablet 08/20/20 [Rx Last Taken Unknown] pantoprazole 40 mg tablet,delayed release 40 mg PO DAILY #90 tablet 08/20/20 [Rx Last Taken Unknown] triamterene 37.5 mg-hydrochlorothiazide 25 mg tablet 1 tab PO DAILY #90 tablet 08/20/20 [Rx Last Taken Unknown] albuterol sulfate 90 mcg/actuation aerosol inhaler 2 puff INHALATION Q6H PRN 08/31/20 [History Last Taken Unknown] losartan 50 mg tablet 50 mg PO DAILY #14 tablet 08/31/20 [Rx Last Taken 02/16/21] pen needle, diabetic 31 gauge x 5/16 #100 each 08/31/20 [Rx Last Taken Unknown] carvedilol 6.25 mg tablet 6.25 mg PO BID #180 tab 09/18/20 [Rx Last Taken 01/21 01/09] apixaban 5 mg tablet 5 mg PO BID #180 tab 09/30/20 [Rx Last Taken 02/12/21] blood-glucose meter #1 ea 11/11/20 [Rx Last Taken Unknown] blood sugar diagnostic #300 ea 11/12/20 [Rx Last Taken Unknown] lancets #300 ea 11/12/20 [Rx Last Taken Unknown] hydroxyzine HCl 25 mg tablet 25 mg PO DAILY PRN PRN #14 tablet 12/03/20 [Rx Last Taken Unknown] insulin glargine 100 unit/mL (3 mL) subcutaneous pen 30 unit SC QHS #15 ml 01/07/21 [Rx Last Taken Unknown] nitroglycerin 0.4 mg sublingual tablet 0.4 mg SUBLINGUAL Q5-15M PRN #25 tab 01/11/21 [Rx Last Taken Unknown] aspirin 81 mg tablet,delayed release 81 mg PO QDAY #30 tab 02/08/21 [Rx Last Taken 02/16/21] semaglutide 0.5 mg SUBCUT QWEEK #4.5 ml 02/15/21 [Rx Last Taken Unknown] ticagrelor 90 mg tablet 90 mg PO BID #180 tab 02/15/21 [Rx Last Taken 02/16/21] amlodipine 2.5 mg tablet 2.5 mg PO DAILY #90 tab 03/08/21 [Rx Last Taken Unknown] trazodone 150 mg tablet 150 mg PO QHS PRN #30 tab 03/12/21 [Rx Last Taken Unknown] Allergy/AdvReac Type Severity Reaction Status Date / Time duloxetine [From Cymbalta] Allergy Itching Verified 03/15/21 12:42 tomato Allergy Itching Verified 03/15/21 12:42 Family History Sister COPD (chronic obstructive pulmonary disease) Mother COPD (chronic obstructive pulmonary disease) Hypertension Alzheimer's dementia without behavioral disturbance Alzheimer's dementia Father Diabetes Hypertension Myocardial infarction Surgical History History of laparoscopic appendectomy History of total abdominal hysterectomy Hx of cholecystectomy Hx of shoulder surgery Social History Smoking Status: Current every day smoker tobacco type: cigarettes alcohol intake: never substance use type: does not use what type of physical activity do you participate in: none ROS ROS ED Constitutional Constitutional ED: Denies chills or fever(s) ENT ENT ED: Denies sore throat Cardiovascular Cardiovascular: Denies chest pain Respiratory/Chest Respiratory/Chest: Denies cough or dyspnea Gastrointestinal Gastrointestinal: Denies abdominal pain, diarrhea, nausea or vomiting Genitourinary Genitourinary ED: Denies dysuria Musculoskeletal Musculoskeletal: Denies myalgias Integumentary Denies rash Neurologic Neurologic: Reports weakness; Denies headache(s) Hematologic/Lymphatic Hematologic/Lymphatic: Denies easy bleeding or easy bruising EXAM Physical Exam Const Vital Signs: 03/15/21 12:03 03/15/21 12:42 03/15/21 12:43 Temperature 98.5 F Temperature Source Temporal Pulse Rate 54 L 53 L Respiratory Rate 28 H Respiratory Effort Normal Non-Labored Blood Pressure 155/83 H 173/82 H Blood Pressure Mean 107 112 Pulse Ox 99 Oxygen Delivery Method Room Air Room Air 03/15/21 14:05 03/15/21 14:44 Temperature Temperature Source Pulse Rate 64 58 L Respiratory Rate 20 H 17 Respiratory Effort Blood Pressure 143/66 H 143/66 H Blood Pressure Mean 91 Pulse Ox 100 Oxygen Delivery Method Room Air Positive well nourished and well developed General Appearance ED: well developed HEENT Reports dry mucous membranes Mouth ED: Yes dry mucous membranes Mouth: dry mucous membranes Eyes PERRL and EOMs intact bilaterally General Eye ED: Yes pale conjunctiva Neck supple Neck Narrative: No meningeal signs Resp normal respiratory effort and clear to auscultation bilaterally Cardio regular rate and regular rhythm Rate: other Other Details: 2-4 bilaterally are equal and symmetric GI non-tender and non-distended GI Narrative: Abdomen is soft and nondistended with normoactive bowel sounds there is mild diffuse pain on palpation but no voluntary guarding or rigidity no pulsatile mass or increased tympany Auscultation: normoactive bowel sounds Palpation: soft Back/Spine no CVA tenderness Extremity normal to inspection Neuro oriented x3 and CN's II-XII intact bilaterally Neuro Narrative: Cranial nerves II through XII are grossly intact there are no focal neurologic deficits. No pronator drift no dysmetria no truncal ataxia. NIH stroke scale score of 0 Sensorium / Orientation: alert Motor Exam: strength 5/5 throughout Psych Psych Narrative: Patient has a depressed/flat affect Skin no rashes or lesions noted Skin Narrative: Skin turgor is increased MDM MDM MDM Narrative Medical decision making narrative: Patient presented to the ER with a normal neurologic exam and overall stable vitals. Her weakness is generalized in natur e and her exam does show mild dehydration. With concern for acute kidney injury or even blood loss as a cause of her symptoms a basic work-up was obtained. Labs and images revealed no clinically significant findings and after hydration patient did report feeling better and neuro exam remained normal. Therefore at this time with negative work-up and patient feeling better with symptomatic treatment she is safe for discharge Lab Data Attestation: I reviewed the patient's lab results. Labs: Laboratory Results - last 24 hr 03/15/21 03/15/21 03/15/21 12:35 12:35 12:35 WBC 11.3 H RBC 3.94 L Hgb 12.2 Hct 35.9 L MCV 91.1 MCH 31.0 MCHC 34.0 RDW Std Deviation 48.0 H RDW Coeff of Yaw 14.4 Plt Count 432 MPV 9.3 Immature Gran % (Auto) 0.400 Neut % (Auto) 80.3 H Lymph % (Auto) 13.8 L [place] % (Auto) 4.1 Eos % (Auto) 1.0 Baso % (Auto) 0.4 Absolute Neuts (auto) 9.1 H Absolute Lymphs (auto) 1.57 Nucleated RBC % 0 PT 15.7 H INR 1.3 APTT 32.4 Sodium 135 L Potassium 3.7 Chloride 100 Carbon Dioxide 24.0 Anion Gap 11 BUN 15 Creatinine 1.17 H Estim Creat Clear Calc 34.89 Est GFR (MDRD) Af Amer 60 Est GFR (MDRD) Non-Af 49 L BUN/Creatinine Ratio 12.8 Glucose 193 H Calcium 10.0 Troponin I High Sens Urine Color Urine Clarity Urine pH Ur Specific [place] Urine Protein Urine Glucose (UA) Urine Ketones Urine Occult Blood Urine Nitrite Urine Bilirubin Urine Urobilinogen Ur Leukocyte Esterase Urine RBC Urine WBC Ur Squamous Epith Cells Urine Bacteria Urine Mucus 03/15/21 03/15/21 12:35 13:37 WBC RBC Hgb Hct MCV MCH MCHC RDW Std Deviation RDW Coeff of Yaw Plt Count MPV Immature Gran % (Auto) Neut % (Auto) Lymph % (Auto) [place] % (Auto) Eos % (Auto) Baso % (Auto) Absolute Neuts (auto) Absolute Lymphs (auto) Nucleated RBC % PT INR APTT Sodium Potassium Chloride Carbon Dioxide Anion Gap BUN Creatinine Estim Creat Clear Calc Est GFR (MDRD) Af Amer Est GFR (MDRD) Non-Af BUN/Creatinine Ratio Glucose Calcium Troponin I High Sens 9 Urine Color Yellow Urine Clarity Sl. Cloudy Urine pH 7.0 Ur Specific [place] 1.005 Urine Protein 30 H Urine Glucose (UA) Normal Urine Ketones 5 H Urine Occult Blood Negative Urine Nitrite Negative Urine Bilirubin Negative Urine Urobilinogen Normal Ur Leukocyte Esterase Negative Urine RBC 0 SEEN Urine WBC 0 SEEN Ur Squamous Epith Cells 0-5 SEEN Urine Bacteria 0 SEEN Urine Mucus 0 SEEN Radiography Diagnostic Testing: Clinical Impression(s) from Imaging Studies Chest X-Ray 03/15/21 12:44 IMPRESSION: The lungs are clear. Electronically Signed: Lloyd Evans MD at 13:09 EDT , Service support , Discharge Plan Triage Chief Complaint: Weakness ED Provider: Jasen Michael Dx/Rx/DC Orders Clinical Impression: Generalized weakness, Mild dehydration Instructions: ED Dehydration (Adult), ED Weakness (Uncertain Cause) Prescriptions: No Action insulin glargine 100 unit/mL (3 mL) insulin pen 30 unit SC QHS Qty: 15 RF: 2 albuterol sulfate 90 mcg/actuation HFA aerosol inhaler 2 puff INHALATION Q6H PRN (Reason: Wheezing) RF: 0 losartan 50 mg tablet 50 mg PO DAILY Qty: 14 RF: 0 (DME) pen needle, diabetic [Lite Touch Insulin Pen [place]] 31 gauge x 5/16 needle See Rx Instructions .ROUTE .MEDSUPPLY Qty: 100 RF: 4 Eliquis 5 mg tablet 5 mg PO BID Qty: 180 RF: 3 Hold Instructions: [facility]; hold 02/12 Ozempic 0.25 mg or 0.5 mg(2 mg/1.5 mL) pen injector 0.5 mg subcut QWEEK Qty: 4.5 RF: 0 nitroglycerin [Nitrostat] 0.4 mg tablet, sublingual 0.4 mg sublingual Q5-15M PRN (Reason: chest pain) Qty: 25 RF: 3 aspirin [Adult Aspirin Regimen] 81 mg tablet,delayed release (DR/EC) 81 mg PO QDAY Qty: 30 RF: 0 allopurinol 100 mg tablet 100 mg PO QHS Qty: 90 RF: 1 divalproex 125 mg capsule, delayed rel sprinkle 125 mg PO BID Qty: 180 RF: 1 gabapentin 300 mg capsule 600 mg PO TID Qty: 540 RF: 1 atorvastatin 80 mg tablet 80 mg PO QHS Qty: 90 RF: 1 pantoprazole 40 mg tablet,delayed release (DR/EC) 40 mg PO DAILY Qty: 90 RF: 1 triamterene-hydrochlorothiazid 37.5-25 mg tablet 1 tab PO DAILY Qty: 90 RF: 1 levothyroxine 112 mcg tablet 112 mcg PO DAILY Qty: 90 RF: 1 carvedilol 6.25 mg tablet 6.25 mg PO BID Qty: 180 RF: 4 (DME) blood-glucose meter [OneTouch Verio Flex Start] Kit See Rx Instructions .ROUTE .MEDSUPPLY Qty: 1 RF: 0 (DME) OneTouch Verio test strips Strip See Rx Instructions .ROUTE .MEDSUPPLY Qty: 300 RF: 3 (DME) lancets [OneTouch UltraSoft Lancets] Misc See Rx Instructions .ROUTE .MEDSUPPLY Qty: 300 RF: 3 hydroxyzine HCl 25 mg tablet 25 mg PO DAILY PRN PRN (Reason: Itching) Qty: 14 RF: 0 ticagrelor 90 mg tablet 90 mg PO BID Qty: 180 RF: 3 Hold Instructions: 04/15/2020: SOB amlodipine 2.5 mg tablet 2.5 mg PO DAILY Qty: 90 RF: 3 trazodone 150 mg tablet 150 mg PO QHS PRN (Reason: sleep) Qty: 30 RF: 2 Primary Care Provider: Pat Bennett Referrals: Pat Bennett MD [Primary Care Provider] - Disposition Disposition: Home, Self Care Discharge Date/Time: 03/15/21 15:10
[2021-03-15 14:44] VITALS: BP 143/66; PULSE 58; RESP 17
== END 2021-03-15 15:10 | disposition home or self-care (01) ==
PROVIDERS: Emergency Provider Emergency Medicine; PCP Internal Medicine
DX: E86.0 Dehydration (principal); R53.1 Weakness; I25.10 Atherosclerotic heart disease of native coronary artery without angina pectoris; M15.9 Polyosteoarthritis, unspecified; E11.22 Type 2 diabetes mellitus with diabetic chronic kidney disease; N18.30 Chronic kidney disease, stage 3 unspecified; E11.21 Type 2 diabetes mellitus with diabetic nephropathy; F17.210 Nicotine dependence, cigarettes, uncomplicated; Z79.4 Long term (current) use of insulin; Z79.899 Other long term (current) drug therapy
CPT/HCPCS: 71045; 80048; 81001; 84484; 85025; 85610; 85730; 87426; 93005; 96360; 99285; J7030; A4216

== ENCOUNTER 2021-07-03 15:07 | Emergency (ER) | payer MEDICARE, MEDICAID, SELFPAY ==
[2020-06-04 12:24] VITALS: BMI 26.4
[2021-07-03 15:09] VITALS: BP 125/55; PULSE 66; RESP 14; TEMP 36.4; O2SAT 98; BMI 27.6
--- NOTE | 2021-07-03 15:25 | CT_ITS ---
INDICATION: abd pain EXAMINATION: CT Abdomen And Pelvis W/ Contrast Injection TECHNIQUE: Helically acquired images were obtained of the abdomen and pelvis after IV contrast. A radiation dose optimization technique was used for this scan. IV Contrast dosage and agent: IV 100mL [id number] Oral contrast: None. COMPARISON: None. FINDINGS: Visualized lung bases: Unremarkable Liver: 1 cm calcified granuloma in the left lung base. Gallbladder: Surgically absent. Spleen: Unremarkable Pancreas: Unremarkable Adrenal Glands: Unremarkable Kidneys: Unremarkable Vasculature: Moderate aortoiliac atherosclerotic disease. GI Tract: Scattered diverticula throughout the colon without evidence of inflammation. There are several short segment areas of small and large bowel demonstrating mild increase in wall thickening as well as increase in enhancement. No focal fluid collection or fistulous connection. Lymphadenopathy: None Peritoneum: No ascites. Bladder: Unremarkable Reproductive organs: Unremarkable Bones/Soft tissues: There are diffuse degenerative changes of the spine. CT/Abdomen/Pelvis W IV Cont ONLY IMPRESSION: Findings concerning for acute flare of inflammatory bowel disease, in particular Crohn''s disease. No focal fluid collection, fistula or stricture. Electronically Signed: Fox Frank MD at 17:14 EST ,
--- NOTE | 2021-07-03 15:27 | EX.ED.DYSGE1 ---
HPI History of Present Illness Chief Complaint: Diarrhea Narrative Narrative: Patient is a six 5-year-old female who states for the past 3 weeks she has had 3-4 episodes of watery diarrhea each day. She states that there has been no recent antibiotic use and she denies any travel outside the country known sick contacts or exposure to livestock. She states she typically reports that she is constipated and then developed diarrhea after being placed on Metformin. She states once the Metformin was stopped her bowel movements returned to more of a constipation status. She states there is been no new medications prescribed but in the past 3 weeks she is returned to the diarrhea and secondary to this presents for evaluation. [facility] Medical History Atherosclerotic heart disease of [place] coronary artery without angina pectoris Diabetes Generalized OA Overweight (BMI 25.0-29.9) Polyneuropathy due to type 2 diabetes mellitus Presence of stent in coronary artery (~03/09/20) 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 GFR 30-59 Home Medications albuterol sulfate 90 mcg/actuation aerosol inhaler 2 puff INHALATION Q6H PRN 08/31/20 [History Last Taken Unknown] pen needle, diabetic 31 gauge x 5/16 #100 each 08/31/20 [Rx Last Taken Unknown] carvedilol 6.25 mg tablet 6.25 mg PO BID #180 tab 09/18/20 [Rx Last Taken 02/16/21] blood-glucose meter #1 ea 11/11/20 [Rx Last Taken Unknown] blood sugar diagnostic #300 ea 11/12/20 [Rx Last Taken Unknown] lancets #300 ea 11/12/20 [Rx Last Taken Unknown] hydroxyzine HCl 25 mg tablet 25 mg PO DAILY PRN PRN #14 tablet 12/03/20 [Rx Last Taken Unknown] nitroglycerin 0.4 mg sublingual tablet 0.4 mg SUBLINGUAL Q5-15M PRN #25 tab 01/11/21 [Rx Last Taken Unknown] aspirin 81 mg tablet,delayed release 81 mg PO QDAY #30 tab 02/08/21 [Rx Last Taken 02/16/21] ticagrelor 90 mg tablet 90 mg PO BID #180 tab 02/15/21 [Rx Last Taken 02/16/21] divalproex 125 mg capsule,delayed release sprinkle 125 mg PO BID #180 cap 03/24/21 [Rx Last Taken Unknown] losartan 50 mg tablet 50 mg PO DAILY #90 tab 03/24/21 [Rx Last Taken Unknown] gabapentin 300 mg capsule 600 mg PO TID #540 cap 04/07/21 [Rx Last Taken Unknown] levothyroxine 112 mcg tablet 112 mcg PO DAILY #90 tablet 04/07/21 [Rx Last Taken Unknown] allopurinol 100 mg tablet 100 mg PO QHS #90 tablet 04/27/21 [Rx Last Taken Unknown] pantoprazole 40 mg tablet,delayed release 40 mg PO DAILY #90 tablet 05/10/21 [Rx Last Taken Unknown] insulin glargine 100 unit/mL (3 mL) subcutaneous pen 30 unit SC QHS #15 ml 06/04/21 [Rx Last Taken Unknown] trazodone 150 mg tablet 150 mg PO QHS PRN #30 tab 06/09/21 [Rx Last Taken Unknown] apixaban 5 mg tablet 5 mg PO BID #180 tab 06/14/21 [Rx Last Taken Unknown] amlodipine 2.5 mg tablet 2.5 mg PO DAILY #90 tab 06/21/21 [Rx Last Taken Unknown] atorvastatin 80 mg tablet 80 mg PO QHS #90 tab 06/21/21 [Rx Last Taken Unknown] semaglutide 0.5 mg SUBCUT QWEEK #4.5 ml 06/21/21 [Rx Last Taken Unknown] triamterene 37.5 mg-hydrochlorothiazide 25 mg tablet 1 tab PO DAILY #90 tablet 06/21/21 [Rx Last Taken Unknown] diphenoxylate-atropine [Lomotil] 1 tab PO TID PRN 7 Days #21 tab 07/03/21 [Rx Last Taken Unknown] Allergy/AdvReac Type Severity Reaction Status Date / Time duloxetine [From Cymbalta] Allergy Itching Verified 07/03/21 15:11 tomato Allergy Itching Verified 07/03/21 15:11 Family History Sister COPD (chronic obstructive pulmonary disease) Mother COPD (chronic obstructive pulmonary disease) Hypertension Alzheimer's dementia without behavioral disturbance Alzheimer's dementia Father Diabetes Hypertension Myocardial infarction Surgical History History of laparoscopic appendectomy History of total abdominal hysterectomy Hx of cholecystectomy Hx of shoulder surgery Social History Smoking Status: Current every day smoker tobacco type: cigarettes alcohol intake: never substance use type: does not use what type of physical activity do you participate in: none ROS ROS ED Constitutional Constitutional ED: Denies chills or fever(s) ENT ENT ED: Denies sore throat Cardiovascular Cardiovascular: Denies chest pain Respiratory/Chest Respiratory/Chest: Denies cough or dyspnea Gastrointestinal Gastrointestinal: Reports abdominal pain and diarrhea; Denies nausea or vomiting Genitourinary Genitourinary ED: Denies dysuria Musculoskeletal Musculoskeletal: Denies myalgias Integumentary Denies rash Neurologic Neurologic: Denies headache(s) Hematologic/Lymphatic Hematologic/Lymphatic: Denies easy bleeding or easy bruising EXAM Physical Exam Const Vital Signs: 07/03/21 15:09 07/03/21 17:09 Temperature 97.6 F L Temperature Source Temporal Pulse Rate 66 63 Respiratory Rate 14 18 Blood Pressure 125/55 H 107/50 L Blood Pressure Mean 78 69 Pulse Ox 98 98 Oxygen Delivery Method Room Air Room Air Positive well nourished and well developed General Appearance ED: well developed HEENT Reports dry mucous membranes Mouth ED: Yes dry mucous membranes Mouth: dry mucous membranes Eyes PERRL and EOMs intact bilaterally Neck supple Resp normal respiratory effort and clear to auscultation bilaterally Cardio regular rate and regular rhythm Rate: other Other Details: Radial pulses are +2-4 bilaterally are equal and symmetric GI non-distended GI Narrative: Abdomen is soft and nondistended with hyperactive bowel sounds. There is pain diffusely across the upper abdomen greatest in the midepigastric region without voluntary guarding or rigidity. No pulsatile mass or increased tympany noted. Palpation: soft Extremity normal to inspection Neuro oriented x3 and CN's II-XII intact bilaterally Sensorium / Orientation: alert Motor Exam: strength 5/5 throughout Psych mental status grossly normal Skin no rashes or lesions noted Skin Narrative: Skin turgor is elevated/increased MDM MDM MDM Narrative Medical decision making narrative: Patient presented to the ER in no acute distress and does not have risk factors for infectious diarrhea but as she has reported 3 weeks of persistent watery diarrhea there is concern that she could have an inflammatory bowel disorder or possibly even infectious process which is now led to acute kidney injury from dehydration from 3 weeks of diarrhea so a work-up was ordered. Blood work showed just mild elevation to her white count as well as slight elevation to her kidney function but overall no clinically significant findings. I elected to add a CT scan because of her abdominal pain on palpation which did show inflammatory changes consistent for a autoimmune disease such as Crohn's disorder. I discussed with patient possible round of steroids but she is a diabetic and states last time she was on prednisone her sugars spiked above 500 and therefore does not want to be placed on steroids any further. Therefore at this time with possibility of an inflammatory bowel disorder causing her persistent symptoms I will send her to GI for further evaluation with possible colonoscopy with biopsy. Patient we placed on a few days of Lomotil to help with the diarrhea and she was hydrated in the ER to reverse the mild dehydration found on today's exam. However as she does not have acute kidney injury bowel obstruction or signs of abdominal perforation she can be discharged home with outpatient follow-up Lab Data Attestation: I reviewed the patient's lab results. Labs: Laboratory Results - last 24 hr 07/03/21 07/03/21 07/03/21 15:30 15:30 16:02 WBC 12.0 H RBC 4.42 Hgb 14.3 Hct 41.6 MCV 94.1 MCH 32.4 H MCHC 34.4 RDW Std Deviation 50.7 H RDW Coeff of Yaw 14.6 Plt Count 496 H MPV 9.0 Immature Gran % (Auto) 0.500 Neut % (Auto) 81.7 H Lymph % (Auto) 11.6 L Bacon % (Auto) 4.2 Eos % (Auto) 1.7 Baso % (Auto) 0.3 Absolute Neuts (auto) 9.8 H Absolute Lymphs (auto) 1.39 Nucleated RBC % 0 Sodium 135 L Potassium 4.0 Chloride 104 Carbon Dioxide 23.0 Anion Gap 8 BUN 27 H Creatinine 1.23 H Estim Creat Clear Calc 45.23 Est GFR (MDRD) Af Amer 56 L Est GFR (MDRD) Non-Af 47 L BUN/Creatinine Ratio 22.0 H Glucose 103 Calcium 8.7 Total Bilirubin 0.60 Direct Bilirubin 0.11 AST 14 L ALT 25 Alkaline Phosphatase 90 Total Protein 8.9 H Albumin 4.6 Globulin 4.3 H Lipase 49 L Urine Color Yellow Urine Clarity Sl. Cloudy Urine pH 5.0 Ur Specific [place] 1.020 Urine Protein 15 H Urine Glucose (UA) Normal Urine Ketones 5 H Urine Occult Blood Negative Urine Nitrite Negative Urine Bilirubin Negative Urine Urobilinogen Normal Ur Leukocyte Esterase 25 H Urine RBC 0 SEEN Urine WBC 0-5 SEEN Ur Squamous Epith Cells 10-25 SEEN Amorphous Sediment 1+ URATE Urine Bacteria 0 SEEN Urine Mucus 0 SEEN Radiography Diagnostic Testing: Clinical Impression(s) from Imaging Studies Abdomen/Pelvis CT 07/03/21 15:25 IMPRESSION: Findings concerning for acute flare of inflammatory bowel disease, in particular Crohn''s disease. No focal fluid collection, fistula or stricture. Electronically Signed: Fox Frank MD at 17:14 EST , Discharge Plan Triage Chief Complaint: Diarrhea ED Provider: Jasen Michael Dx/Rx/DC Orders Clinical Impression: Diarrhea, Dehydration, Bowel disease, inflammatory Instructions: Dehydration, ED Diarrhea, Unknown Cause Prescriptions: New diphenoxylate-atropine [Lomotil] 2.5-0.025 mg tablet 1 tab PO TID PRN (Reason: diarrhea) 7 Days Qty: 21 RF: 0 No Action albuterol sulfate 90 mcg/actuation HFA aerosol inhaler 2 puff INHALATION Q6H PRN (Reason: Wheezing) RF: 0 (DME) pen needle, diabetic [Lite Touch Insulin Pen [place]] 31 gauge x 5/16 needle See Rx Instructions .ROUTE .MEDSUPPLY Qty: 100 RF: 4 nitroglycerin [Nitrostat] 0.4 mg tablet, sublingual 0.4 mg sublingual Q5-15M PRN (Reason: chest pain) Qty: 25 RF: 3 aspirin [Adult Aspirin Regimen] 81 mg tablet,delayed release (DR/EC) 81 mg PO QDAY Qty: 30 RF: 0 carvedilol 6.25 mg tablet 6.25 mg PO BID Qty: 180 RF: 4 (DME) blood-glucose meter [OneTouch Verio Flex Start] Kit See Rx Instructions .ROUTE .MEDSUPPLY Qty: 1 RF: 0 (DME) OneTouch Verio test strips Strip See Rx Instructions .ROUTE .MEDSUPPLY Qty: 300 RF: 3 (DME) lancets [OneTouch UltraSoft Lancets] Misc See Rx Instructions .ROUTE .MEDSUPPLY Qty: 300 RF: 3 hydroxyzine HCl 25 mg tablet 25 mg PO DAILY PRN PRN (Reason: Itching) Qty: 14 RF: 0 ticagrelor 90 mg tablet 90 mg PO BID Qty: 180 RF: 3 Hold Instructions: 04/15/2020: SOB losartan 50 mg tablet 50 mg PO DAILY Qty: 90 RF: 1 divalproex 125 mg capsule, delayed rel sprinkle 125 mg PO BID Qty: 180 RF: 1 levothyroxine 112 mcg tablet 112 mcg PO DAILY Qty: 90 RF: 1 gabapentin 300 mg capsule 600 mg PO TID Qty: 540 RF: 3 allopurinol 100 mg tablet 100 mg PO QHS Qty: 90 RF: 3 pantoprazole 40 mg tablet,delayed release (DR/EC) 40 mg PO DAILY Qty: 90 RF: 1 insulin glargine 100 unit/mL (3 mL) insulin pen 30 unit SC QHS Qty: 15 RF: 2 trazodone 150 mg tablet 150 mg PO QHS PRN (Reason: sleep) Qty: 30 RF: 2 Eliquis 5 mg tablet 5 mg PO BID Qty: 180 RF: 3 Hold Instructions: [facility]; hold 02/12 Ozempic 0.25 mg or 0.5 mg(2 mg/1.5 mL) pen injector 0.5 mg subcut QWEEK Qty: 4.5 RF: 1 atorvastatin 80 mg tablet 80 mg PO QHS Qty: 90 RF: 1 amlodipine 2.5 mg tablet 2.5 mg PO DAILY Qty: 90 RF: 3 triamterene-hydrochlorothiazid 37.5-25 mg tablet 1 tab PO DAILY Qty: 90 RF: 1 Primary Care Provider: Pat Bennett Referrals: Pat Bennett MD [Primary Care Provider] - Luis F Quintanilla DO [STAFF PHYSICIAN] - 5-7 Days Activity Restrictions/Additional Instructions: Please take your prescription as directed to help control your diarrhea and follow-up with GI to discuss need for colonoscopy and further testing to further address your diarrhea and inflammatory bowel disease Disposition Disposition: Home, Self Care
[2021-07-03] MEDS: 0.9% Normal Saline 1,000 ML 999 ML IV (15:43)
[2021-07-03] MEDS: Ondansetron 4 MG/2 ML Vial IV (15:43)
[2021-07-03] MEDS: Morphine 4 MG/ML Syringe IV (15:43)
[2021-07-03 15:55] LABS: Absolute Lymphocyte Count 1.39 X10^3/uL (0.83-4.51); Absolute Neutrophil Count 9.8 X10^3/uL (2.0-7.7); Basophil# 0.04 X10^3/uL; Basophil% 0.3 % (0-1); Eosinophils% 1.7 % (0-5); Hematocrit 41.6 % (37-47); Hemoglobin 14.3 g/dL (12.0-15.0); Lymphocyte # 1.39 X10^3/ul (0.83-4.51); Lymphocyte % 11.6 % (19-41); Mean Corp Hgb Conc 34.4 g/dL (32-36); Mean Corpuscular Hgb 32.4 pg (27.0-32.0); Mean Corpuscular Volume 94.1 fL (81-99); Monocyte% 4.2 % (0-10); NRBC Flagged by Analyzer 0 % (0-5); Neutrophil # 9.84 X10^3/uL (2.7-7.7); Neutrophil % 81.7 % (47-70); Platelet Count 496 K/mm3 (150-450); RBC Distribution Width CV 14.6 % (11.6-14.6); RBC Distribution Width SD 50.7 fl (35.1-43.9); Red Blood Count 4.42 M/mm3 (4.2-5.4)
[2021-07-03 16:07] LABS: Bacteria 0 SEEN /hpf (None Seen); Mucous, Urine 0 SEEN /hpf (<or=2+); Red Blood Cells-Urine 0 SEEN /hpf (0-5)
[2021-07-03 16:13] LABS: AST(SGOT) 14 U/L (15-37); Alanine Aminotransfer ALT/SGPT 25 U/L (13-56); Albumin, Serum 4.6 g/dL (3.2-5.0); Alkaline Phosphatase 90 U/L (45-117); Anion Gap 8 (5-15); BUN 27 mg/dL (7-18); Bilirubin, Direct 0.11 mg/dL (0.00-0.30); Calcium,Total 8.7 mg/dL (8.5-10.1); Chloride 104 mmol/L (98-107); Creatinine, Serum 1.23 mg/dL (0.55-1.02); EST Glomerular Filtration Rate 47 mL/min (>60); Est Glom Filt Rate - Afr Amer 56 mL/min (>60); Estimated Creatinine Clearance 45.23 ml/min; Globulin 4.3 g/dL (2.2-4.2); Glucose 103 mg/dL (74-106); Lipase 49 U/L (73-393); Protein, Total 8.9 g/dL (6.4-8.2); Sodium Level 135 mmol/L (136-145)
[2021-07-03 16:13] LABS: Color, Urine Yellow (Yellow); Glucose, Dipstick Normal (Normal); Ketone-Dipstick 5 mg/dl (Negative); Leukocyte Esterase-Dipstick 25 /ul (Negative); Nitrite-Dipstick Negative (Negative); Occult Blood-Urine Negative /ul (Negative); Protein-Dipstick 15 mg/dl (Negative); Urine Bilirubin Dipstick Negative (Negative); Urine Clarity Sl. Cloudy (Clear); Urine Urobilinogen Normal (Normal)
[2021-07-03 16:18] LABS: Amorphous Sediment 1+ URATE; Squamous Epithelial Cells - UA 10-25 SEEN /hpf (5-10); White Blood Cells 0-5 SEEN /hpf (0-5)
[2021-07-03 17:09] VITALS: BP 107/50; PULSE 63; RESP 18; O2SAT 98
[2021-07-03 18:35] VITALS: BP 122/78; PULSE 62; RESP 14; TEMP 36.3; O2SAT 98
== END 2021-07-03 18:36 | disposition home or self-care (01) ==
PROVIDERS: Emergency Provider Emergency Medicine; PCP Internal Medicine; Visit Provider Emergency Medicine
DX: R19.7 Diarrhea, unspecified (principal); E86.0 Dehydration; K52.9 Noninfective gastroenteritis and colitis, unspecified; I25.10 Atherosclerotic heart disease of native coronary artery without angina pectoris; F17.210 Nicotine dependence, cigarettes, uncomplicated
CPT/HCPCS: 74177; 80048; 80076; 81001; 83630; 83690; 85025; 87177; 87209; 87493; 87506; 96374; 96375; 99283; J7030; Q9967; A4216; J2405

== ENCOUNTER 2021-07-26 15:07 | Outpatient (CLI) | payer MEDICARE, MEDICAID, SELFPAY ==
[2020-06-04 12:24] VITALS: BMI 26.4
[2021-07-26 17:02] LABS: ALB/GLOB Ratio 1.1 RATIO (0.9-2.4); AST(SGOT) 7 U/L (15-37); Alanine Aminotransfer ALT/SGPT 21 U/L (13-56); Albumin, Serum 4.1 g/dL (3.2-5.0); Alkaline Phosphatase 82 U/L (45-117); Anion Gap 7 (5-15); BUN 16 mg/dL (7-18); BUN/Creat Ratio 15.2 RATIO (10-20); Calcium,Total 9.1 mg/dL (8.5-10.1); Chloride 102 mmol/L (98-107); Cholesterol 149 mg/dL (200); Creatinine, Serum 1.05 mg/dL (0.55-1.02); EST Glomerular Filtration Rate 56 mL/min (>60); Est Glom Filt Rate - Afr Amer 68 mL/min (>60); Globulin 3.8 g/dL (2.2-4.2); Glucose 101 mg/dL (74-106); High Density Lipoprotein 50 mg/dL; Potassium 4.3 mmol/L (3.5-5.1); Protein, Total 7.9 g/dL (6.4-8.2); Sodium Level 136 mmol/L (136-145); T4 Free Direct 1.79 ng/dL (0.76-1.46); Thyroid Stim Hormone (TSH) 0.06 uIU/mL (0.358-3.74); Triglycerides 209 mg/dL; Very Low Density Lipoprotein 42 mg/dL (5-40)
== END 2021-07-26 23:59 | disposition home or self-care (01) ==
LOC: BIMLAB 15:07
PROVIDERS: PCP Internal Medicine; Referring Provider Nurse Practitioner Family; Visit Provider Nurse Practitioner Family
DX: E11.65 Type 2 diabetes mellitus with hyperglycemia (principal); Z79.4 Long term (current) use of insulin; E78.5 Hyperlipidemia, unspecified; E03.9 Hypothyroidism, unspecified
CPT/HCPCS: 36415; 80053; 80061; 84439; 84443

== ENCOUNTER → 2021-10-12 | Outpatient (CLI) | payer MEDICARE, MEDICAID, SELFPAY ==
[2020-06-04 12:24] VITALS: BMI 26.4
[2021-10-12 12:25] LABS: Absolute Lymphocyte Count 1.67 X10^3/uL (0.83-4.51); Absolute Neutrophil Count 7.4 X10^3/uL (2.0-7.7); Basophil# 0.06 X10^3/uL; Basophil% 0.6 % (0-1); Eosinophil# 0.31 X10^3/uL; Hematocrit 36.3 % (37-47); Hemoglobin 11.9 g/dL (12.0-15.0); Lymphocyte # 1.67 X10^3/ul (0.83-4.51); Lymphocyte % 16.3 % (19-41); Mean Corp Hgb Conc 32.8 g/dL (32-36); Mean Corpuscular Hgb 31.4 pg (27.0-32.0); Mean Corpuscular Volume 95.8 fL (81-99); Mean Platelet Vol. 9.5 fl (6.2-12.0); Monocyte# 0.77 X10^3/uL; Monocyte% 7.5 % (0-10); NRBC Flagged by Analyzer 0 % (0-5); Neutrophil # 7.37 X10^3/uL (2.7-7.7); Neutrophil % 72.2 % (47-70); Platelet Count 503 K/mm3 (150-450); RBC Distribution Width CV 14.8 % (11.6-14.6); RBC Distribution Width SD 51.6 fl (35.1-43.9); Red Blood Count 3.79 M/mm3 (4.2-5.4); White Blood Count 10.2 K/mm3 (4.4-11.0)
[2021-10-12 13:07] LABS: BNP,B-Type NATRIURETIC PEPTIDE 124.7 pg/mL (0-100)
[2021-10-12 13:17] LABS: Anion Gap 10 (5-15); BUN 24 mg/dL (7-18); BUN/Creat Ratio 18.3 RATIO (10-20); Calcium,Total 9.1 mg/dL (8.5-10.1); Chloride 105 mmol/L (98-107); Creatinine, Serum 1.31 mg/dL (0.55-1.02); EST Glomerular Filtration Rate 43 mL/min (>60); Est Glom Filt Rate - Afr Amer 52 mL/min (>60); Glucose 132 mg/dL (74-106); Potassium 4.5 mmol/L (3.5-5.1); Sodium Level 137 mmol/L (136-145)
== END | disposition home or self-care (01) ==
LOC: LAB 11:26
PROVIDERS: PCP Internal Medicine; Referring Provider Nurse Practitioner Gerontology; Visit Provider Nurse Practitioner Gerontology
DX: R06.00 Dyspnea, unspecified (principal); R53.83 Other fatigue
CPT/HCPCS: 80048; 83880; 85025

== ENCOUNTER → 2021-10-19 | Outpatient (CLI) | payer MEDICARE, MEDICAID, SELFPAY ==
[2020-06-04 12:24] VITALS: BMI 26.4
[2021-10-19 17:04] LABS: Anion Gap 8 (5-15); BUN 21 mg/dL (7-18); BUN/Creat Ratio 16.3 RATIO (10-20); Calcium,Total 8.7 mg/dL (8.5-10.1); Chloride 102 mmol/L (98-107); Creatinine, Serum 1.29 mg/dL (0.55-1.02); EST Glomerular Filtration Rate 44 mL/min (>60); Est Glom Filt Rate - Afr Amer 53 mL/min (>60); Glucose 120 mg/dL (74-106); Potassium 3.2 mmol/L (3.5-5.1); Sodium Level 137 mmol/L (136-145)
== END | disposition home or self-care (01) ==
LOC: LAB 14:54
PROVIDERS: PCP Internal Medicine; Referring Provider Nurse Practitioner Gerontology; Visit Provider Nurse Practitioner Gerontology
DX: R06.00 Dyspnea, unspecified (principal); N18.31 Chronic kidney disease, stage 3a
CPT/HCPCS: 36415; 80048

== ENCOUNTER → 2021-11-05 | Outpatient (CLI) | payer MEDICARE, MEDICAID, SELFPAY ==
[2020-06-04 12:24] VITALS: BMI 26.4
--- NOTE | 2021-11-05 12:42 | CDU_ITS ---
Reason For Study: DIZZINESS Rt. Velocities/BP Lt. Velocities/BP Prox CCA 89.1/23.9 cm/sec. Prox CCA 105.1/19.7 cm/sec. Mid CCA 70.8/16.0 cm/sec. Mid CCA 94.7/22.2 cm/sec. Dist CCA 74.7/20.0 cm/sec. Dist CCA 74.0/17.1 cm/sec. Prox ICA 73.8/23.0 cm/sec. Prox ICA 87.0/19.7 cm/sec. Mid ICA 96.0/11.2 cm/sec. Mid ICA 107.8/24.9 cm/sec. Dist ICA 88.1/25.6 cm/sec. Dist ICA 92.4/30.3 cm/sec. Rt. ICA/CCA = 1.18. Lt. ICA/CCA = 1.14. Prox ECA 85.2/9.5 cm/sec. Prox ECA 175.8/21.1 cm/sec. Rt. Vert. 34.3/11.6 cm/sec. Lt. Vert. 44.9/10.2 cm/sec. Right Extracranial There is intimal thickening but no significant atherosclerotic plaque noted in the right common carotid artery. There is heterogeneous, irregular atherosclerotic plaque noted in the right internal carotid artery. There is heterogeneous, irregular atherosclerotic plaque noted in the right external carotid artery. Antegrade flow is noted in the right vertebral artery. Left Extracranial There is homogeneous, irregular atherosclerotic plaque noted in the left common carotid artery. There is heterogeneous, irregular atherosclerotic plaque noted in the left internal carotid artery. The atherosclerotic plaque causes acoustic shadowing. There is heterogeneous, irregular atherosclerotic plaque noted in the left external carotid artery. Antegrade flow is noted in the left vertebral artery. Procedure Carotid Duplex [id number]. Exam performed in department. VL/Carotid Duplex Ultrasound Interpretation Summary Irregular calcific plaque at the proximal right internal carotid artery with le ss than 50% stenosis Less than 50% stenosis right external carotid artery Irregular calcific plaque at the proximal left internal carotid artery with ely cific shadowing Less than 50% stenosis left internal carotid artery Less than 50% stenosis left external carotid artery Patent and antegrade vertebral arteries bilaterally Ordering Physician: Daina Cunningham Referring Physician: Pat Bennett M.D. Performed By: Jb Baez
[2021-11-05 14:14] LABS: T4 Free Direct 1.73 ng/dL (0.76-1.46); Thyroid Stim Hormone (TSH) 0.05 uIU/mL (0.358-3.74)
== END | disposition home or self-care (01) ==
PROVIDERS: Nurse Practitioner Family; PCP Internal Medicine; Referring Provider Nurse Practitioner Gerontology; Visit Provider Nurse Practitioner Gerontology
DX: R42 Dizziness and giddiness (principal); E03.9 Hypothyroidism, unspecified
CPT/HCPCS: 36415; 84439; 84443; 93880

== ENCOUNTER 2021-11-07 16:35 | Inpatient (IN) | payer MEDICARE, MEDICAID, SELFPAY ==
[2020-06-04 12:24] VITALS: BMI 26.4
[2021-11-07] VITALS (7 sets, daily range): BP systolic 104–162; BP diastolic 53–99; PULSE 62–80; RESP 14–18; TEMP 36.3–36.8; O2SAT 93–99; BMI 25.2; BMI 24.9
--- NOTE | 2021-11-07 16:40 | EKG12_ITS ---
Test Reason : CP Blood Pressure : / mmHG Vent. Rate : 076 BPM Atrial Rate : 076 BPM P-R Int : 132 ms QRS Dur : 088 ms QT Int : 392 ms P-R-T Axes : 072 -58 067 degrees QTc Int : 441 ms Normal sinus rhythm Left axis deviation Abnormal ECG Confirmed by LANNY LOPEZ, PANKAJ ([id number]), assignment editor AZAEL THORNE ([id number]) on 11/08/2021 12:56:47 PM Referred By: DC Confirmed By:PANKAJ CA MD
[2021-11-07] MEDS: Ondansetron 4 MG/2 ML Vial IV ×2 (16:46→22:35)
--- NOTE | 2021-11-07 16:46 | CT_ITS ---
EXAM: CT ABDOMEN AND PELVIS WITHOUT INTRAVENOUS CONTRAST CLINICAL INDICATION: abd pain TECHNIQUE: Helically acquired images were obtained of the abdomen and pelvis without intravenous contrast. This CT exam was performed using one or more of the following dose reduction techniques: automated exposure control, adjustment of the mA and/or kV according to patient size, and/or use of iterative reconstruction technique. This report was created using [employer] report generation technology. COMPARISON: 07/03/2021. FINDINGS: LOWER THORAX: Calcified granuloma in the left lung base. No cardiomegaly. No significant pericardial effusion. ABDOMEN: LIVER: Unremarkable. Homogeneous. GALLBLADDER AND BILE DUCTS: Gallbladder is surgically absent. No intra- or extrahepatic biliary ductal dilation. PANCREAS: Unremarkable. No focal cystic mass. SPLEEN: Unremarkable. Normal size without focal cystic or solid mass. ADRENALS: Unremarkable. No nodules. KIDNEYS AND URETERS: Unremarkable. Normal renal size and position. No hydronephrosis. STOMACH AND BOWEL: Dilated small bowel with transition in the mid to distal ileum. No discrete lesion. Distal ileum and colon are normal in caliber to decompressed. No focal inflammatory change. PELVIS: APPENDIX: No evidence of acute appendicitis. BLADDER: Unremarkable. REPRODUCTIVE: Unremarkable as visualized. No mass. ABDOMEN and PELVIS: INTRAPERITONEAL SPACE: Unremarkable. No ascites or other fluid collection. No free air. BONES/JOINTS: Unremarkable. No suspicious lytic or blastic abnormality. SOFT TISSUES: Unremarkable. No discrete abdominal or pelvic wall hernia. VASCULATURE: Unremarkable. Abdominal aorta is normal in caliber. LYMPH NODES: Unremarkable. No enlarged lymph nodes. CT/Abdomen/Pelvis without Cont IMPRESSION: Moderate/partial SBO with transition in the mid to distal ileum. Electronically Signed: Marzena Palencia MD at 19:28 EDT Reading Location ID and State: [id number] / Tel , Service support ,
[2021-11-07] MEDS: Morphine 4 MG/ML Syringe IV (16:53)
[2021-11-07 17:02] LABS: Absolute Lymphocyte Count 2.43 X10^3/uL (0.83-4.51); Absolute Neutrophil Count 13.9 X10^3/uL (2.0-7.7); Basophil# 0.06 X10^3/uL; Basophil% 0.3 % (0-1); Eosinophil# 0.13 X10^3/uL; Eosinophils% 0.7 % (0-5); Hematocrit 44.8 % (37-47); Hemoglobin 14.7 g/dL (12.0-15.0); Lymphocyte # 2.43 X10^3/ul (0.83-4.51); Lymphocyte % 13.9 % (19-41); Mean Corp Hgb Conc 32.8 g/dL (32-36); Mean Corpuscular Hgb 30.5 pg (27.0-32.0); Mean Corpuscular Volume 92.9 fL (81-99); Mean Platelet Vol. 9.2 fl (6.2-12.0); Monocyte# 0.92 X10^3/uL; Monocyte% 5.3 % (0-10); NRBC Flagged by Analyzer 0 % (0-5); Neutrophil # 13.86 X10^3/uL (2.7-7.7); Neutrophil % 79.4 % (47-70); Platelet Count 685 K/mm3 (150-450); RBC Distribution Width CV 14.4 % (11.6-14.6); RBC Distribution Width SD 49.3 fl (35.1-43.9); Red Blood Count 4.82 M/mm3 (4.2-5.4); White Blood Count 17.5 K/mm3 (4.4-11.0)
[2021-11-07 17:22] LABS: ALB/GLOB Ratio 0.9 RATIO (0.9-2.4); AST(SGOT) 16 U/L (15-37); Alanine Aminotransfer ALT/SGPT 23 U/L (13-56); Albumin, Serum 4.7 g/dL (3.2-5.0); Alkaline Phosphatase 131 U/L (45-117); Anion Gap 12 (5-15); BUN 30 mg/dL (7-18); BUN/Creat Ratio 13.8 RATIO (10-20); Calcium,Total 10.6 mg/dL (8.5-10.1); Chloride 98 mmol/L (98-107); Creatinine, Serum 2.18 mg/dL (0.55-1.02); EST Glomerular Filtration Rate 24 mL/min (>60); Est Glom Filt Rate - Afr Amer 29 mL/min (>60); Estimated Creatinine Clearance 23.03 ml/min; Glucose 169 mg/dL (74-106); Lipase 95 U/L (73-393); Potassium 4.5 mmol/L (3.5-5.1); Protein, Total 9.7 g/dL (6.4-8.2); Sodium Level 133 mmol/L (136-145); Troponin-I HS 6 pg/mL (3.0-54.0)
--- NOTE | 2021-11-07 17:55 | RAD_ITS ---
STUDY: X-RAY CHEST REASON FOR EXAM: Female, 66 years old. chest pain TECHNIQUE: Single AP portable view of the chest. COMPARISON: 03/15/2021 FINDINGS: The lungs are clear and expanded. There is no demonstrated pleural abnormality. Normal size heart. Normal mediastinum and rita. Normal visualized pulmonary arteries. Normal visualized aortic arch and descending thoracic aorta. Normal visualized thoracic spine. Normal visualized ribs, clavicles, and shoulders. There is no demonstrated abnormality of the visualized soft tissue structures of the upper abdomen. RAD/Chest 1 View (Portable) IMPRESSION: Normal x-ray examination of the chest. Electronically Signed: David Adan MD at 18:30 EDT ,
--- NOTE | 2021-11-07 18:24 | ED.RN ---
PT ASSISTED UP TO BSC TO OBTAIN URINE SAMPLE. PT UNABLE TO URINATE AT THIS TIME. PLACED BACK INTO THE BED. CALL LIGHT IN PLACE. DR. BRADFORD INFORMED. FLUIDS ORDERED. FLUIDS GIVEN SEE JUL.
[2021-11-07 18:47] LABS: Red Blood Cells-Urine 0 SEEN /hpf (0-5)
[2021-11-07 19:03] LABS: Color, Urine Yellow (Yellow); Glucose, Dipstick Normal (Normal); Ketone-Dipstick Negative (Negative); Leukocyte Esterase-Dipstick 25 /ul (Negative); Nitrite-Dipstick Negative (Negative); Occult Blood-Urine Negative /ul (Negative); Protein-Dipstick 30 mg/dl (Negative); Specific Gravity, Urine 1.025 (1.002-1.030); Urine Bilirubin Dipstick Negative (Negative); Urine Clarity Clear (Clear); Urine Urobilinogen Normal (Normal)
[2021-11-07 19:20] LABS: Bacteria 1+ /hpf (None Seen); Hyaline Cast 0-5 SEEN /lpf (0-5); Mucous, Urine 1+ /hpf (<or=2+); Squamous Epithelial Cells - UA 5-10 SEEN /hpf (5-10); White Blood Cells 0-5 SEEN /hpf (0-5)
--- NOTE | 2021-11-07 19:47 | EX.ED.DYSGE1 ---
HPI History of Present Illness Chief Complaint: Chest Pain Informant: patient Onset/Context/Timing Onset: Today Location: Diffuse abdominal pain and left-sided chest pain Current Severity: Severe Associated Symptoms Associated Symptoms: Vomiting Narrative Narrative: Patient started with diffuse abdominal pain earlier today. This progressed to left chest pain. Patient has a history of a cholecystectomy remotely. She also had a total hysterectomy with an appendectomy remotely. History of diabetes, coronary disease, and others. She says she is on Eliquis for heart disease. Denies fevers. Denies urinary symptoms. 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 GFR 30-59 Home Medications blood-glucose meter (Ventrixuch Verio Flex Start) #1 ea 11/11/20 [Rx Last Taken Unknown] blood sugar diagnostic (Historic FuturesTouch Verio test strips) #300 ea 11/12/20 [Rx Last Taken Unknown] lancets (Ventrixuch UltraSoft Lancets) #300 ea 11/12/20 [Rx Last Taken Unknown] nitroglycerin 0.4 mg sublingual tablet (Nitrostat) 0.4 mg sublingual Q5-15M PRN chest pain #25 tabs 01/11/21 [Rx Last Taken Unknown] flash glucose sensor (FreeStyle Marilyn 14 Day Sensor) #2 ea 07/26/21 [Rx Last Taken Unknown] insulin glargine 100 unit/mL (3 mL) subcutaneous pen 30 unit (0.3 mL) subcut QHS diabetes #15 mL 08/02/21 [Rx Last Taken Unknown] semaglutide (Ozempic) 0.5 mg (0.4 mL) subcut QWEEK #4.5 mL 09/27/21 [Rx Last Taken Unknown] furosemide 40 mg tablet 40 mg PO .COMPLEX #3 tabs 10/12/21 [Rx Last Taken Unknown] albuterol sulfate 90 mcg/actuation aerosol inhaler 2 puff inhalation Q6H PRN Wheezing #8.5 grams 10/27/21 [Rx Last Taken Unknown] allopurinol 100 mg tablet 100 mg PO QHS gout #90 tabs 10/27/21 [Rx Last Taken Unknown] amlodipine 2.5 mg tablet 2.5 mg PO DAILY #90 tabs 10/27/21 [Rx Last Taken Unknown] apixaban 5 mg tablet (Eliquis) 5 mg PO BID #180 tabs 10/27/21 [Rx Last Taken Unknown] atorvastatin 80 mg tablet 80 mg PO QHS #90 tabs 10/27/21 [Rx Last Taken Unknown] carvedilol 6.25 mg tablet 6.25 mg PO BID #180 tabs 10/27/21 [Rx Last Taken Unknown] divalproex 125 mg capsule,delayed release sprinkle 125 mg PO BID bipolar #180 caps 10/27/21 [Rx Last Taken Unknown] escitalopram oxalate 10 mg tablet (Lexapro) 10 mg PO DAILY #90 tabs 10/27/21 [Rx Last Taken Unknown] gabapentin 300 mg capsule 600 mg PO TID nerve pain #540 caps 10/27/21 [Rx Last Taken Unknown] losartan 50 mg tablet 50 mg PO DAILY #90 tabs 10/27/21 [Rx Last Taken Unknown] nystatin 100,000 unit/gram topical powder (Nyamyc) 1 applic topical BID PRN skin infection #30 grams 10/27/21 [Rx Last Taken Unknown] pantoprazole 40 mg tablet,delayed release 40 mg PO DAILY gerd #90 tabs 10/27/21 [Rx Last Taken Unknown] ticagrelor 90 mg tablet 90 mg PO BID #180 tabs 10/27/21 [Rx Last Taken Unknown] triamterene 37.5 mg-hydrochlorothiazide 25 mg tablet 1 tab PO DAILY #90 tabs 10/27/21 [Rx Last Taken Unknown] pen needle, diabetic 31 gauge x 5/16 (Lite Touch Insulin Pen [employer]) #100 ea 11/05/21 [Rx Last Taken Unknown] colestipol 1 gram tablet 1 g PO DAILY 11/07/21 [History Last Taken Unknown] levothyroxine 112 mcg tablet 112 mcg PO MOTUWETHFR thyroid 11/07/21 [History Last Taken Unknown] trazodone 50 mg tablet 150 mg PO QHS 11/07/21 [History Last Taken Unknown] Allergy/AdvReac Type Severity Reaction Status Date / Time duloxetine [From Cymbalta] Allergy Itching Verified 11/07/21 16:35 tomato Allergy Itching Verified 11/07/21 16:35 Family History Sister COPD (chronic obstructive pulmonary disease) Mother COPD (chronic obstructive pulmonary disease) Hypertension Alzheimer's dementia without behavioral disturbance Alzheimer's dementia Father Diabetes Hypertension Myocardial infarction Surgical History History of laparoscopic appendectomy History of total abdominal hysterectomy Hx of cholecystectomy Hx of shoulder surgery Presence of stent in coronary artery (~09/06/21) Social History Smoking Status: Current every day smoker tobacco type: cigarettes alcohol intake: never substance use type: does not use caffeine: No what type of physical activity do you participate in: none ROS ROS ED Constitutional Constitutional ED: Denies chills or fever(s) Eyes Eyes: Denies blurry vision ENT ENT ED: Denies ear pain Cardiovascular Cardiovascular: Reports chest pain; Denies palpitations or racing heartbeat Respiratory/Chest Respiratory/Chest: Denies cough, dyspnea or dyspnea on exertion Gastrointestinal Gastrointestinal: Reports abdominal pain, nausea and vomiting; Denies constipation Genitourinary Genitourinary ED: Denies dysuria Musculoskeletal Musculoskeletal: Denies arthralgias Integumentary Denies abscess Neurologic Neurologic: Denies headache(s) Psychiatric Psychiatric: Denies anxiety Endocrine Endocrinology: Denies cold intolerance Allergic/Immunologic Allergic/Immunologic ED: Denies mouth swelling EXAM Physical Exam Const Vital Signs: 11/07/21 16:36 11/07/21 16:38 11/07/21 17:42 Temperature 97.4 F L Temperature Source Temporal Pulse Rate 80 69 Respiratory Rate 18 14 Respiratory Effort Short of Breath Blood Pressure 162/93 H 112/72 Blood Pressure Mean 116 85 Pulse Ox 97 93 Oxygen Delivery Method Room Air Room Air 11/07/21 19:04 Temperature Temperature Source Pulse Rate 71 Respiratory Rate 15 Respiratory Effort Blood Pressure 129/53 H Blood Pressure Mean 78 Pulse Ox 97 Oxygen Delivery Method Room Air Positive well nourished and well developed General Appearance ED: well developed HEENT Reports moist mucous membranes Negative for trauma Eyes EOMs intact bilaterally Resp normal respiratory effort and clear to auscultation bilaterally Cardio regular rate and regular rhythm GI Negative for non-tender Palpation: soft and tender Neuro oriented x3 Psych mental status grossly normal Skin no rashes or lesions noted MDM MDM MDM Narrative Medical decision making narrative: Patient was seen immediately on arrival. She had an EKG that showed sinus rhythm at a rate of 76 with no signs of acute ischemia or infarction pattern. She was placed on the monitor. This did not sound like typical ACS. Troponin was unremarkable. Patient was treated with pain medicine and nausea medicine and fluids while awaiting results. Chest x-ray was reviewed by the radiologist and myself and showed no acute process. Lab work revealed a leukocytosis but she had no other signs of sepsis and no signs of infection. Her creatinine showed an SALVATORE. Hepatic panel and lipase were unremarkable. Urinalysis was unremarkable. CT showed a partial bowel obstruction with transition in the mid to distal ileum. Patient will need inpatient care, IV fluids. I ordered additional fluids and contacted the hospitalist. Impression #1 small bowel obstruction Impression #2 SALVATORE Impression #3 leukocytosis Lab Data Attestation: I reviewed the patient's lab results. Labs: Laboratory Results - last 24 hr 11/07/21 11/07/21 11/07/21 16:41 16:41 18:42 WBC 17.5 H RBC 4.82 Hgb 14.7 Hct 44.8 MCV 92.9 MCH 30.5 MCHC 32.8 RDW Std Deviation 49.3 H RDW Coeff of Yaw 14.4 Plt Count 685 H MPV 9.2 Immature Gran % (Auto) 0.400 Neut % (Auto) 79.4 H Lymph % (Auto) 13.9 L [place] % (Auto) 5.3 Eos % (Auto) 0.7 Baso % (Auto) 0.3 Absolute Neuts (auto) 13.9 H Absolute Lymphs (auto) 2.43 Nucleated RBC % 0 Sodium 133 L Potassium 4.5 Chloride 98 Carbon Dioxide 23.0 Anion Gap 12 BUN 30 H Creatinine 2.18 H Estim Creat Clear Calc 23.03 Est GFR (MDRD) Af Amer 29 L Est GFR (MDRD) Non-Af 24 L BUN/Creatinine Ratio 13.8 Glucose 169 H Calcium 10.6 H Total Bilirubin 0.60 AST 16 ALT 23 Alkaline Phosphatase 131 H Troponin I High Sens 6 Total Protein 9.7 H Albumin 4.7 Globulin 5.0 H Albumin/Globulin Ratio 0.9 Lipase 95 Urine Color Yellow Urine Clarity Clear Urine pH 5.0 Ur Specific [place] 1.025 Urine Protein 30 H Urine Glucose (UA) Normal Urine Ketones Negative Urine Occult Blood Negative Urine Nitrite Negative Urine Bilirubin Negative Urine Urobilinogen Normal Ur Leukocyte Esterase 25 H Urine RBC 0 SEEN Urine WBC 0-5 SEEN Ur Squamous Epith Cells 5-10 SEEN Urine Bacteria 1+ Hyaline Casts 0-5 SEEN Urine Mucus 1+ Radiography Diagnostic Testing: Clinical Impression(s) from Imaging Studies Abdomen/Pelvis CT 11/07/21 16:46 IMPRESSION: Moderate/partial SBO with transition in the mid to distal ileum. Electronically Signed: Marzena Palencia MD at 19:28 EDT , Chest X-Ray 11/07/21 17:55 IMPRESSION: Normal x-ray examination of the chest. Electronically Signed: David Adan MD at 18:30 EDT , Discharge Plan Triage Chief Complaint: Chest Pain ED Provider: Jonathan Polk Dx/Rx/DC Orders Prescriptions: No Action nitroglycerin [Nitrostat] 0.4 mg tablet, sublingual 0.4 mg sublingual Q5-15M PRN (Reason: chest pain) Qty: 25 3RF Rx Instructions: do not exceed 3 doses per episode (DME) FreeStyle Marilyn 14 Day Sensor Kit See Rx Instructions .ROUTE .MEDSUPPLY Qty: 2 6RF Rx Instructions: As directed colestipol 1 gram Tablet 1 g PO DAILY trazodone 50 mg tablet 150 mg PO QHS levothyroxine 112 mcg tablet 112 mcg PO MOTUWETHFR (DME) blood-glucose meter [OneTouch Verio Flex Start] Kit See Rx Instructions .ROUTE .MEDSUPPLY Qty: 1 0RF Rx Instructions: Twice daily and as needed (DME) OneTouch Verio test strips Strip See Rx Instructions .ROUTE .MEDSUPPLY Qty: 300 3RF Rx Instructions: Check 3 times a day and as needed (DME) lancets [OneTouch UltraSoft Lancets] [facility] See Rx Instructions .ROUTE .MEDSUPPLY Qty: 300 3RF Rx Instructions: Check 3 times a day and as needed insulin glargine 100 unit/mL (3 mL) insulin pen 30 unit SC QHS Qty: 15 2RF Ozempic 0.25 mg or 0.5 mg(2 mg/1.5 mL) pen injector 0.5 mg subcut QWEEK Qty: 4.5 1RF furosemide 40 mg tablet 40 mg PO .COMPLEX Qty: 3 0RF Rx Instructions: 40 mg PO daily for 3 days; albuterol sulfate 90 mcg/actuation HFA aerosol inhaler 2 puff INHALATION Q6H PRN (Reason: Wheezing) Qty: 8.5 6RF allopurinol 100 mg tablet 100 mg PO QHS Qty: 90 3RF amlodipine 2.5 mg tablet 2.5 mg PO DAILY Qty: 90 3RF Rx Instructions: BP Eliquis 5 mg tablet 5 mg PO BID Qty: 180 3RF Hold Instructions: [facility]; hold 02/12 atorvastatin 80 mg tablet 80 mg PO QHS Qty: 90 1RF Rx Instructions: cholesterol carvedilol 6.25 mg tablet 6.25 mg PO BID Qty: 180 4RF Rx Instructions: must administer with a meal/food divalproex 125 mg capsule, delayed rel sprinkle 125 mg PO BID Qty: 180 3RF escitalopram oxalate [Lexapro] 10 mg tablet 10 mg PO DAILY Qty: 90 3RF gabapentin 300 mg capsule 600 mg PO TID Qty: 540 3RF losartan 50 mg tablet 50 mg PO DAILY Qty: 90 3RF pantoprazole 40 mg tablet,delayed release (DR/EC) 40 mg PO DAILY Qty: 90 3RF ticagrelor 90 mg tablet 90 mg PO BID Qty: 180 3RF Hold Instructions: 04/15/2020: SOB triamterene-hydrochlorothiazid 37.5-25 mg tablet 1 tab PO DAILY Qty: 90 3RF nystatin [Nyamyc] 100,000 unit/gram powder 1 applic topical BID PRN (Reason: skin infection) Qty: 30 0RF (DME) pen needle, diabetic [Lite Touch Insulin Pen [employer]] 31 gauge x 5/16 needle See Rx Instructions .ROUTE .MEDSUPPLY Qty: 100 4RF Rx Instructions: As directed Primary Care Provider: Pat Bennett Referrals: Pat Bennett MD [Primary Care Provider] -
--- NOTE | 2021-11-07 20:51 | HP.PCM.HOS_ITS ---
HPI - General General Date of Admission: 11/07/21 Date of Service: 11/07/21 Chief Complaint: Abdominal pain HPI Narrative ASIF CASTRO, is a 66 F who presents with abdominal pain and distention today. Patient has had similar episodes but far less severe in the past that resolved spontaneously but this episode was far more intense and patient's abdomen was distended to the point where her was drawn. Patient sought evaluation In the emergency room and was diagnosed with a moderate/partial small bowel obstruction with transition in the mid to distal ileum. Since arriving here, patient's abdomen is feeling slightly better though still distended but not as tense as it was before and she is still having abdominal pain. She did note that she has had some diarrhea most recently but no flatus. Patient has had excess abdominal surgeries in the 1980s but has never been formally diagnosed with small bowel obstruction before. PENDING SALE TO [facility] Medical History Atherosclerotic heart disease of [place] coronary artery without angina pectoris Diabetes Generalized OA Overweight (BMI 25.0-29.9) Polyneuropathy due to type 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 GFR 30-59 Home Medications blood-glucose meter (OneTouch Verio Flex Start) #1 ea 11/11/20 [Rx Last Taken Unknown] blood sugar diagnostic (OneTouch Verio test strips) #300 ea 11/12/20 [Rx Last Taken Unknown] lancets (OneTouch UltraSoft Lancets) #300 ea 11/12/20 [Rx Last Taken Unknown] nitroglycerin 0.4 mg sublingual tablet (Nitrostat) 0.4 mg sublingual Q5-15M PRN chest pain #25 tabs 01/11/21 [Rx Last Taken Unknown] flash glucose sensor (FreeStyle Marilyn 14 Day Sensor) #2 ea 07/26/21 [Rx Last Taken Unknown] insulin glargine 100 unit/mL (3 mL) subcutaneous pen 30 unit (0.3 mL) subcut QHS diabetes #15 mL 08/02/21 [Rx Last Taken Unknown] semaglutide (Ozempic) 0.5 mg (0.4 mL) subcut QWEEK #4.5 mL 09/27/21 [Rx Last Taken Unknown] furosemide 40 mg tablet 40 mg PO .COMPLEX #3 tabs 10/12/21 [Rx Last Taken Unknown] albuterol sulfate 90 mcg/actuation aerosol inhaler 2 puff inhalation Q6H PRN Wheezing #8.5 grams 10/27/21 [Rx Last Taken Unknown] allopurinol 100 mg tablet 100 mg PO QHS gout #90 tabs 10/27/21 [Rx Last Taken Unknown] amlodipine 2.5 mg tablet 2.5 mg PO DAILY #90 tabs 10/27/21 [Rx Last Taken Unknown] apixaban 5 mg tablet (Eliquis) 5 mg PO BID #180 tabs 10/27/21 [Rx Last Taken Unknown] atorvastatin 80 mg tablet 80 mg PO QHS #90 tabs 10/27/21 [Rx Last Taken Unknown] carvedilol 6.25 mg tablet 6.25 mg PO BID #180 tabs 10/27/21 [Rx Last Taken Unknown] divalproex 125 mg capsule,delayed release sprinkle 125 mg PO BID bipolar #180 caps 10/27/21 [Rx Last Taken Unknown] escitalopram oxalate 10 mg tablet (Lexapro) 10 mg PO DAILY #90 tabs 10/27/21 [Rx Last Taken Unknown] gabapentin 300 mg capsule 600 mg PO TID nerve pain #540 caps 10/27/21 [Rx Last Taken Unknown] losartan 50 mg tablet 50 mg PO DAILY #90 tabs 10/27/21 [Rx Last Taken Unknown] nystatin 100,000 unit/gram topical powder (Nyamyc) 1 applic topical BID PRN skin infection #30 grams 10/27/21 [Rx Last Taken Unknown] pantoprazole 40 mg tablet,delayed release 40 mg PO DAILY gerd #90 tabs 10/27/21 [Rx Last Taken Unknown] ticagrelor 90 mg tablet 90 mg PO BID #180 tabs 10/27/21 [Rx Last Taken Unknown] triamterene 37.5 mg-hydrochlorothiazide 25 mg tablet 1 tab PO DAILY #90 tabs 10/27/21 [Rx Last Taken Unknown] pen needle, diabetic 31 gauge x /16 (Lite Touch Insulin Pen [place]) #100 ea 11/05/21 [Rx Last Taken Unknown] colestipol 1 gram tablet 1 g PO DAILY 11/07/21 [History Last Taken Unknown] levothyroxine 112 mcg tablet 112 mcg PO MOTUWETHFR thyroid 11/07/21 [History Last Taken Unknown] trazodone 50 mg tablet 150 mg PO QHS 11/07/21 [History Last Taken Unknown] Allergy/AdvReac Type Severity Reaction Status Date / Time duloxetine [From Cymbalta] Allergy Itching Verified 11/07/21 16:35 tomato Allergy Itching Verified 11/07/21 16:35 Family History Sister COPD (chronic obstructive pulmonary disease) Mother COPD (chronic obstructive pulmonary disease) Hypertension Alzheimer's dementia without behavioral disturbance Alzheimer's dementia Father Diabetes Hypertension Myocardial infarction Surgical History History of laparoscopic appendectomy History of total abdominal hysterectomy Hx of cholecystectomy Hx of shoulder surgery Presence of stent in coronary artery (~09/06/21) Social History Smoking Status: Current every day smoker tobacco type: cigarettes alcohol intake: never substance use type: does not use caffeine: No what type of physical activity do you participate in: none ROS ROS Narrative Nausea and vomiting. With evidence of chest pain along with this. All review of systems were negative except as mentioned above in the history of present illness and the other review of systems. Vital Signs Vital Signs Vital Signs: 11/07/21 16:36 11/07/21 16:38 11/07/21 17:42 Temperature 36.3 C L Temperature Source Temporal Pulse Rate 80 69 Respiratory Rate 18 14 Respiratory Effort Short of Breath Blood Pressure 162/93 H 112/72 Blood Pressure Mean 116 85 Pulse Ox 97 93 Oxygen Delivery Method Room Air Room Air 11/07/21 19:04 11/07/21 20:04 11/07/21 20:00 Temperature 36.7 C Temperature Source Temporal Pulse Rate 71 64 65 Respiratory Rate 15 18 16 Respiratory Effort Blood Pressure 129/53 H 124/99 H 124/99 H Blood Pressure Mean 78 107 107 Pulse Ox 97 99 99 Oxygen Delivery Method Room Air Room Air Room Air Weight Weight: 56.7 kg Body Mass Index (BMI) 25.2 Physical Exam Const alert and no apparent distress HEENT normocephalic and head/scalp atraumatic Resp normal respiratory effort, no retractions, no use of accessory muscles and clear to auscultation bilaterally Cardio regular rate, regular rhythm, S1 normal heart sound and S2 normal heart sound GI GI Narrative: Slightly distended. Diffusely tender. No rebound. Auscultation: hypoactive bowel sounds Palpation: tender; Negative for guarding Extremity normal to inspection Neuro oriented x3 Psych affect normal Results Lab / Micro Data Attestation: I reviewed the patient's lab results. Result Diagrams: 11/07/21 16:41 11/07/21 16:41 Labs: Laboratory Results - last 24 hr 11/07/21 16:41: WBC 17.5 H, RBC 4.82, Hgb 14.7, Hct 44.8, MCV 92.9, MCH 30.5, MCHC 32.8, RDW Std Deviation 49.3 H, RDW Coeff of Yaw 14.4, Plt Count 685 H, MPV 9.2, Immature Gran % (Auto) 0.400, Neut % (Auto) 79.4 H, Lymph % (Auto) 13.9 L, [place] % (Auto) 5.3, Eos % (Auto) 0.7, Baso % (Auto) 0.3, Absolute Neuts (auto) 13.9 H, Absolute Lymphs (auto) 2.43, Nucleated RBC % 0 11/07/21 16:41: Sodium 133 L, Potassium 4.5, Chloride 98, Carbon Dioxide 23.0, Anion Gap 12, BUN 30 H, Creatinine 2.18 H, Estim Creat Clear Calc 23.03, Est GFR (MDRD) Af Amer 29 L, Est GFR (MDRD) Non-Af 24 L, BUN/Creatinine Ratio 13.8, Glucose 169 H, Calcium 10.6 H, Total Bilirubin 0.60, AST 16, ALT 23, Alkaline Phosphatase 131 H, Troponin I High Sens 6, Total Protein 9.7 H, Albumin 4.7, Globulin 5.0 H, Albumin/Globulin Ratio 0.9, Lipase 95 11/07/21 18:42: Urine Color Yellow, Urine Clarity Clear, Urine pH 5.0, Ur S pecific [place] 1.025, Urine Protein 30 H, Urine Glucose (UA) Normal, Urine K etones Negative, Urine Occult Blood Negative, Urine Nitrite Negative, Urine Bilirubin Negative, Urine Urobilinogen Normal, Ur Leukocyte Esterase 25 H, Urine RBC 0 SEEN, Urine WBC 0-5 SEEN, Ur Squamous Epith Cells 5-10 SEEN, Urine Bacteria 1+, Hyaline Casts 0-5 SEEN, Urine Mucus 1+ Micro: Microbiology 11/07/21 16:55 Nasal Secretion SARS-CoV-2 & FLU Antigen (Rapid) - Final EKG Initial EKG: Attestation: I personally reviewed and interpreted this EKG as follows: Radiology Impression Abdomen/Pelvis CT 11/07/21 16:46 IMPRESSION: Moderate/partial SBO with transition in the mid to distal ileum. Electronically Signed: Marzena Palencia MD at 19:28 EDT , Chest X-Ray 11/07/21 17:55 IMPRESSION: Normal x-ray examination of the chest. Electronically Signed: David Adan MD at 18:30 EDT , Assessment & Plan Assessment/Plan (1) Small bowel obstruction: PLAN: Likely due to adhesions from her prior abdominal surgeries Supportive management with antiemetics, pain control and IV fluids N.p.o. but okay for medications and sips and ice chips Dr. Butler contacted in the emergency room and will be seeing the patient in consultation Discussed with the patient that most the time these are self remitting and is suspected that she may have had some transient small bowel obstruction for the past. Explained the patient that if she does get worse we may have to consider an NG tube and surgery would be a last resort. (2) Leukocytosis: PLAN: Likely reactive Monitor PLAN: Plan Chest pain: Atypical though the patient does have known CAD her chest pain seems more likely related with her small bowel obstruction and cardiac in nature. No additional work-up at this time. Diabetes mellitus type 2: Insulin-dependent. We will continue with insulin glargine but I reduced dose and she will be NPO. Hypertension: Continue with her home meds with exception of her diuretics. Paroxysmal atrial fibrillation: Currently in normal sinus rhythm. Continue with anticoagulation with apixaban. COVID-19 vaccination status: Patient has been vaccinated and boosted for COVID- 19. CODE STATUS: Addressed with the patient. Patient wishes to be full CODE STATUS. VTE prophylaxis: Not indicated as patient is already anticoagulated. Charges/Coding Visit Charges Inpatient E&M: 11717 Init Hosp L3
[2021-11-07 22:16] LABS: Bedside Glucose 128 mg/dL (74-106)
[2021-11-07] MEDS: Morphine 2 MG/ML Syringe IV (22:27)
[2021-11-07] MEDS: 0.9% Normal Saline 1,000 ML 150 ML IV (22:29)
[2021-11-07] MEDS: APIXABAN 5 MG TABLET PO (23:16)
[2021-11-08 04:00] VITALS: BP 114/49; PULSE 62; RESP 18; TEMP 36.6; O2SAT 99
[2021-11-08 04:35] LABS: Absolute Lymphocyte Count 2.31 X10^3/uL (0.83-4.51); Absolute Neutrophil Count 9.3 X10^3/uL (2.0-7.7); Basophil# 0.04 X10^3/uL; Basophil% 0.3 % (0-1); Eosinophil# 0.12 X10^3/uL; Eosinophils% 0.9 % (0-5); Hematocrit 37.8 % (37-47); Lymphocyte # 2.31 X10^3/ul (0.83-4.51); Lymphocyte % 18.2 % (19-41); Mean Corp Hgb Conc 31.7 g/dL (32-36); Mean Corpuscular Hgb 30.5 pg (27.0-32.0); Mean Corpuscular Volume 96.2 fL (81-99); Mean Platelet Vol. 9.1 fl (6.2-12.0); Monocyte# 0.89 X10^3/uL; NRBC Flagged by Analyzer 0 % (0-5); Neutrophil # 9.29 X10^3/uL (2.7-7.7); Neutrophil % 73.1 % (47-70); Platelet Count 499 K/mm3 (150-450); RBC Distribution Width CV 14.5 % (11.6-14.6); RBC Distribution Width SD 50.5 fl (35.1-43.9); Red Blood Count 3.93 M/mm3 (4.2-5.4); White Blood Count 12.7 K/mm3 (4.4-11.0)
[2021-11-08] MEDS: 0.9% Normal Saline 1,000 ML 150 ML IV ×2 (04:59→11:07)
[2021-11-08] MEDS: Levothyroxine 112 MCG Tablet PO (04:59)
[2021-11-08 05:07] LABS: ALB/GLOB Ratio 0.9 RATIO (0.9-2.4); AST(SGOT) 13 U/L (15-37); Alanine Aminotransfer ALT/SGPT 21 U/L (13-56); Albumin, Serum 3.4 g/dL (3.2-5.0); Alkaline Phosphatase 96 U/L (45-117); Anion Gap 8 (5-15); BUN 35 mg/dL (7-18); BUN/Creat Ratio 22.9 RATIO (10-20); Calcium,Total 8.3 mg/dL (8.5-10.1); Chloride 105 mmol/L (98-107); Creatinine, Serum 1.53 mg/dL (0.55-1.02); EST Glomerular Filtration Rate 36 mL/min (>60); Est Glom Filt Rate - Afr Amer 44 mL/min (>60); Estimated Creatinine Clearance 32.35 ml/min; Globulin 3.9 g/dL (2.2-4.2); Glucose 128 mg/dL (74-106); Potassium 4.4 mmol/L (3.5-5.1); Protein, Total 7.3 g/dL (6.4-8.2); Sodium Level 135 mmol/L (136-145)
[2021-11-08 06:51] LABS: Bedside Glucose 104 mg/dL (74-106)
[2021-11-08] MEDS: Morphine 2 MG/ML Syringe IV (06:51)
--- NOTE | 2021-11-08 07:24 | EX.PCM.CON.S ---
Assessment & Plan Assessment/Plan (1) Gastroenteritis: PLAN: The patient is here with nausea vomiting and diarrhea. Patient reports she did have diarrhea yesterday and passed gas yesterday. She did not have any vomiting overnight. Her abdomen is soft and mildly tender. With the amount of gastroenteritis going around town I think this is likely the diagnosis. She has liquid stool throughout her colon I do not believe she has an obstruction. Currently I would recommend conservative treatment with IV fluids and n.p.o. status. If she starts passing gas and feeling better later today I would start clear liquids. If she is not progressing in the next 24 to 48 hours I will order a small bowel follow-through. Franck Butler MD Pager: [facility] [address] [place] [address], [address] [place] [address] Office: HPI Consult Data Date of Consult: 11/08/21 HPI Narrative HPI Narrative: ASIF CASTRO, is a 66 F who presents with nausea and diarrhea. Patient reports this all started around yesterday. She says she passed gas and had diarrhea yesterday. She did have vomiting yesterday but none overnight. She reports less bloating today than she did yesterday. [facility] Medical History (Updated 11/08/21 @ 07:[address] Franck Butler MD) Atherosclerotic heart disease of [place] coronary artery without angina pectoris Atrial fibrillation Diabetes Generalized OA Overweight (BMI 25.0-29.9) Polyneuropathy due to type 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 GFR 30-59 Home Medications blood-glucose meter (OneTouch Verio Flex Start) #1 ea 11/11/20 [Rx Last Taken Unknown] blood sugar diagnostic (OneTouch Verio test strips) #300 ea 11/12/20 [Rx Last Taken Unknown] lancets (OneTouch UltraSoft Lancets) #300 ea 11/12/20 [Rx Last Taken Unknown] nitroglycerin 0.4 mg sublingual tablet (Nitrostat) 0.4 mg sublingual Q5-15M PRN chest pain #25 tabs 01/11/21 [Rx Last Taken Unknown] flash glucose sensor (FreeStyle Marilyn 14 Day Sensor) #2 ea 07/26/21 [Rx Last Taken Unknown] insulin glargine 100 unit/mL (3 mL) subcutaneous pen 30 unit (0.3 mL) subcut QHS diabetes #15 mL 08/02/21 [Rx Last Taken 11/06/21] albuterol sulfate 90 mcg/actuation aerosol inhaler 2 puff inhalation Q6H PRN Wheezing #8.5 grams 10/27/21 [Rx Last Taken Unknown] allopurinol 100 mg tablet 100 mg PO QHS gout #90 tabs 10/27/21 [Rx Last Taken 11/06/21] amlodipine 2.5 mg tablet 2.5 mg PO DAILY #90 tabs 10/27/21 [Rx Last Taken 11/06/21] apixaban 5 mg tablet (Eliquis) 5 mg PO BID #180 tabs 10/27/21 [Rx Last Taken 11/06/21] atorvastatin 80 mg tablet 80 mg PO QHS #90 tabs 10/27/21 [Rx Last Taken 11/06/21] carvedilol 6.25 mg tablet 6.25 mg PO BID #180 tabs 10/27/21 [Rx Last Taken 11/06/21] divalproex 125 mg capsule,delayed release sprinkle 125 mg PO BID bipolar #180 caps 10/27/21 [Rx Last Taken 11/06/21] escitalopram oxalate 10 mg tablet (Lexapro) 10 mg PO DAILY #90 tabs 10/27/21 [Rx Last Taken 11/06/21] losartan 50 mg tablet 50 mg PO DAILY #90 tabs 10/27/21 [Rx Last Taken 11/06/21] nystatin 100,000 unit/gram topical powder (Nyamyc) 1 applic topical BID PRN skin infection #30 grams 10/27/21 [Rx Last Taken Unknown] pantoprazole 40 mg tablet,delayed release 40 mg PO DAILY gerd #90 tabs 10/27/21 [Rx Last Taken 11/06/21] ticagrelor 90 mg tablet 90 mg PO BID #180 tabs 10/27/21 [Rx Last Taken 11/06/21] triamterene 37.5 mg-hydrochlorothiazide 25 mg tablet 1 tab PO DAILY #90 tabs 10/27/21 [Rx Last Taken 11/06/21] pen needle, diabetic 31 gauge x 5/16 (Lite Touch Insulin Pen [place]) #100 ea 11/05/21 [Rx Last Taken Unknown] colestipol 1 gram tablet 1 g PO DAILY cholesterol 11/07/21 [History Last Taken 11/06/21] gabapentin 600 mg tablet 900 mg PO BID neuropathy 11/07/21 [History Last Taken 11/06/21] levothyroxine 112 mcg tablet 112 mcg PO MOTUWETHFR thyroid 11/07/21 [History Last Taken 11/05/21] semaglutide (Ozempic) 0.5 mg subcut WE diabetes 11/07/21 [History Last Taken 11/03/21] trazodone 50 mg tablet 150 mg PO QHS sleep 11/07/21 [History Last Taken 11/06/21] Allergy/AdvReac Type Severity Reaction Status Date / Time duloxetine [From Cymbalta] Allergy Itching Verified 11/07/21 16:35 tomato Allergy Itching Verified 11/07/21 16:35 Family History Sister COPD (chronic obstructive pulmonary disease) Mother COPD (chronic obstructive pulmonary disease) Hypertension Alzheimer's dementia without behavioral disturbance Alzheimer's dementia Father Diabetes Hypertension Myocardial infarction Surgical History History of laparoscopic appendectomy History of total abdominal hysterectomy Hx of cholecystectomy Hx of shoulder surgery Presence of stent in coronary artery (~09/06/21) Social History Smoking Status: Current every day smoker tobacco type: cigarettes alcohol intake: never substance use type: does not use caffeine: No what type of physical activity do you participate in: none ROS Constitutional Constitutional: Reports anorexia; Denies fatigue or fever(s) ENT HEENT: Denies facial pain Cardiovascular Cardiovascular: Denies chest pain or chest pain with activity Respiratory/Chest Respiratory/Chest: Denies cough or dyspnea Gastrointestinal Gastrointestinal: Reports abdominal pain, diarrhea, nausea and vomiting Genitourinary Genitourinary: Denies change in urinary stream Musculoskeletal Musculoskeletal: Denies abnormal gait Integumentary Integumentary: Denies jaundice Psychiatric Psychiatric: Denies anxiety Endocrine Endocrinology: Denies flushing Hematologic/Lymphatic Hematologic/Lymphatic: Denies easy bruising Physical Exam Const alert and oriented x3 HEENT normocephalic Eyes PERRL Resp normal respiratory effort and normal air movement Cardio regular rate and regular rhythm GI soft to palpation Inspection: abdominal distention Palpation: tender Extremity normal to inspection Neuro CN's II-XII intact bilaterally Lab / Micro Data Result Diagrams: 11/08/21 03:46 11/08/21 03:46 Labs: Laboratory Results - last 24 hr 11/07/21 16:41: WBC 17.5 H, RBC 4.82, Hgb 14.7, Hct 44.8, MCV 92.9, MCH 30.5, MCHC 32.8, RDW Std Deviation 49.3 H, RDW Coeff of Yaw 14.4, Plt Count 685 H, MPV 9.2, Immature Gran % (Auto) 0.400, Neut % (Auto) 79.4 H, Lymph % (Auto) 13.9 L, [place] % (Auto) 5.3, Eos % (Auto) 0.7, Baso % (Auto) 0.3, Absolute Neuts (auto) 13.9 H, Absolute Lymphs (auto) 2.43, Nucleated RBC % 0 11/07/21 16:41: Sodium 133 L, Potassium 4.5, Chloride 98, Carbon Dioxide 23.0, Anion Gap 12, BUN 30 H, Creatinine 2.18 H, Estim Creat Clear Calc 23.03, Est GFR (MDRD) Af Amer 29 L, Est GFR (MDRD) Non-Af 24 L, BUN/Creatinine Ratio 13.8, Glucose 169 H, Calcium 10.6 H, Total Bilirubin 0.60, AST 16, ALT 23, Alkaline Phosphatase 131 H, Troponin I High Sens 6, Total Protein 9.7 H, Albumin 4.7, Globulin 5.0 H, Albumin/Globulin Ratio 0.9, Lipase 95 11/07/21 18:42: Urine Color Yellow, Urine Clarity Clear, Urine pH 5.0, Ur Specific [place] 1.025, Urine Protein 30 H, Urine Glucose (UA) Normal, Urine Ketones Negative, Urine Occult Blood Negative, Urine Nitrite Negative, Urine Bilirubin Negative, Urine Urobilinogen Normal, Ur Leukocyte Esterase 25 H, Urine RBC 0 SEEN, Urine WBC 0-5 SEEN, Ur Squamous Epith Cells 5-10 SEEN, Urine Bacteria 1+, Hyaline Casts 0-5 SEEN, Urine Mucus 1+ 11/07/21 22:11: POC Glucose 128 H 11/08/21 03:46: WBC 12.7 H, RBC 3.93 L, Hgb 12.0, Hct 37.8, MCV 96.2, MCH 30.5, MCHC 31.7 L, RDW Std Deviation 50.5 H, RDW Coeff of Yaw 14.5, Plt Count 499 H, MPV 9.1, Immature Gran % (Auto) 0.500, Neut % (Auto) 73.1 H, Lymph % (Auto) 18.2 L, [place] % (Auto) 7.0, Eos % (Auto) 0.9, Baso % (Auto) 0.3, Absolute Neuts (auto) 9.3 H, Absolute Lymphs (auto) 2.31, Nucleated RBC % 0 11/08/21 03:46: Sodium 135 L, Potassium 4.4, Chloride 105, Carbon Dioxide 22.0, Anion Gap 8, BUN 35 H, Creatinine 1.53 H, Estim Creat Clear Calc 32.35, Est GFR (MDRD) Af Amer 44 L, Est GFR (MDRD) Non-Af 36 L, BUN/Creatinine Ratio 22.9 H, Glucose 128 H, Calcium 8.3 L, Total Bilirubin 0.40, AST 13 L, ALT 21, Alkaline Phosphatase 96, Total Protein 7.3, Albumin 3.4, Globulin 3.9, Albumin/Globulin Ratio 0.9 11/08/21 06:46: POC Glucose 104 Micro: Microbiology 11/07/21 16:55 Nasal Secretion SARS-CoV-2 & FLU Antigen (Rapid) - Final Radiology Impression Abdomen/Pelvis CT 11/07/21 16:46 IMPRESSION: Moderate/partial SBO with transition in the mid to distal ileum. Electronically Signed: Marzena Palencia MD at 19:28 EDT Reading Location ID and State: [id number] / Tel , Service support , Chest X-Ray 11/07/21 17:55 IMPRESSION: Normal x-ray examination of the chest. Electronically Signed: David Adan MD at 18:30 EDT ,
[2021-11-08 09:00] VITALS: BP 115/74; PULSE 98; RESP 18; TEMP 36.6; O2SAT 98
[2021-11-08] MEDS: Pantoprazole Sodium 40 MG Tablet PO (09:19)
[2021-11-08] MEDS: TICAGRELOR 90 MG TABLET PO ×2 (09:20→20:56)
[2021-11-08] MEDS: Losartan Potassium 50 MG Tablet PO (09:20)
[2021-11-08] MEDS: Carvedilol 6.25 MG Tablet PO (09:20)
[2021-11-08] MEDS: Divalproex Sodium 125 MG SPRINKLE PO ×2 (09:20→20:57)
[2021-11-08] MEDS: APIXABAN 5 MG TABLET PO ×2 (09:20→20:57)
[2021-11-08] MEDS: Escitalopram Oxalate 10 MG Tablet PO (09:20)
[2021-11-08] MEDS: amLODIPine 2.5 MG Tablet PO (09:21)
[2021-11-08] MEDS: Gabapentin 300 MG Capsule 900 MG PO ×2 (09:22→20:56)
--- NOTE | 2021-11-08 09:27 | PN.HOSP_ITS ---
Subjective Subjective Follow-up on diarrhea/partial small bowel obstruction: Patient was seen and examined. She has had about 3 bowel movements today?liquid stools, denied any abdominal pain or fever or chills or nausea or vomiting Objective Data Objective Data Vital Signs: Vital Signs Temp Pulse Resp BP Pulse Ox 97.9 F 62 18 114/49 L 99 11/08/21 04:00 11/08/21 04:00 11/08/21 04:00 11/08/21 04:00 11/08/21 04:00 Oxygen Delivery Method Room Air Weight: 55.9 kg Body Mass Index (BMI) 24.9 Intake & Output: Intake and Output for Last 24 Hours 11/06/21 11/07/21 11/08/21 23:59 23:59 23:59 Intake Total 500 / 500 975 / 975 Balance 500 / 500 975 / 975 Lab / Micro Data Result Diagrams: 11/08/21 03:46 11/08/21 03:46 Labs: Laboratory Results - last 24 hr 11/07/21 16:41: WBC 17.5 H, RBC 4.82, Hgb 14.7, Hct 44.8, MCV 92.9, MCH 30.5, MCHC 32.8, RDW Std Deviation 49.3 H, RDW Coeff of Yaw 14.4, Plt Count 685 H, MPV 9.2, Immature Gran % (Auto) 0.400, Neut % (Auto) 79.4 H, Lymph % (Auto) 13.9 L, [place] % (Auto) 5.3, Eos % (Auto) 0.7, Baso % (Auto) 0.3, Absolute Neuts (auto) 13.9 H, Absolute Lymphs (auto) 2.43, Nucleated RBC % 0 11/07/21 16:41: Sodium 133 L, Potassium 4.5, Chloride 98, Carbon Dioxide 23.0, Anion Gap 12, BUN 30 H, Creatinine 2.18 H, Estim Creat Clear Calc 23.03, Est GFR (MDRD) Af Amer 29 L, Est GFR (MDRD) Non-Af 24 L, BUN/Creatinine Ratio 13.8, Glucose 169 H, Calcium 10.6 H, Total Bilirubin 0.60, AST 16, ALT 23, Alkaline Phosphatase 131 H, Troponin I High Sens 6, Total Protein 9.7 H, Albumin 4.7, Globulin 5.0 H, Albumin/Globulin Ratio 0.9, Lipase 95 11/07/21 18:42: Urine Color Yellow, Urine Clarity Clear, Urine pH 5.0, Ur Specific [place] 1.025, Urine Protein 30 H, Urine Glucose (UA) Normal, Urine Ketones Negative, Urine Occult Blood Negative, Urine Nitrite Negative, Urine B ilirubin Negative, Urine Urobilinogen Normal, Ur Leukocyte Esterase 25 H, Urine RBC 0 SEEN, Urine WBC 0-5 SEEN, Ur Squamous Epith Cells 5-10 SEEN, Urine Bacteria 1+, Hyaline Casts 0-5 SEEN, Urine Mucus 1+ 11/07/21 22:11: POC Glucose 128 H 11/08/21 03:46: WBC 12.7 H, RBC 3.93 L, Hgb 12.0, Hct 37.8, MCV 96.2, MCH 30.5, MCHC 31.7 L, RDW Std Deviation 50.5 H, RDW Coeff of Yaw 14.5, Plt Count 499 H, MPV 9.1, Immature Gran % (Auto) 0.500, Neut % (Auto) 73.1 H, Lymph % (Auto) 18.2 L, [place] % (Auto) 7.0, Eos % (Auto) 0.9, Baso % (Auto) 0.3, Absolute Neuts (auto) 9.3 H, Absolute Lymphs (auto) 2.31, Nucleated RBC % 0 11/08/21 03:46: Sodium 135 L, Potassium 4.4, Chloride 105, Carbon Dioxide 22.0, Anion Gap 8, BUN 35 H, Creatinine 1.53 H, Estim Creat Clear Calc 32.35, Est GFR (MDRD) Af Amer 44 L, Est GFR (MDRD) Non-Af 36 L, BUN/Creatinine Ratio 22.9 H, Glucose 128 H, Calcium 8.3 L, Total Bilirubin 0.40, AST 13 L, ALT 21, Alkaline Phosphatase 96, Total Protein 7.3, Albumin 3.4, Globulin 3.9, Albumin/Globulin Ratio 0.9 11/08/21 06:46: POC Glucose 104 Micro: Microbiology 11/07/21 16:55 Nasal Secretion SARS-CoV-2 & FLU Antigen (Rapid) - Final Radiography Diagnostic Testing: Radiology Impression Abdomen/Pelvis CT 11/07/21 16:46 IMPRESSION: Moderate/partial SBO with transition in the mid to distal ileum. Electronically Signed: Marzena Palencia MD at 19:28 EDT , Chest X-Ray 11/07/21 17:55 IMPRESSION: Normal x-ray examination of the chest. Electronically Signed: David Adan MD at 18:30 EDT , Physical Exam Narrative Physical exam: General: Alert, Oriented x3, Cooperative, appears frail HEENT: Atraumatic Oral: Moist Mucosa Neck: Supple Lungs: Clear to auscultation Cardiovascular: HS I+II, regular, no murmurs Abdomen: Bowel Sounds Present, Soft, Non Tender Extremities: No edema Skin: No rashes, No breakdown Neurological: Grossly intact Psych/Mental Status: Appropriate Assessment & Plan Assessment/Plan (1) Gastroenteritis: PLAN: 1. Acute gastroenteritis/partial small bowel obstruction, patient with multiple bowel movements Appears to be slowly improving, will transition from n.p.o. to clear liquid diet Continue IV fluids Follow-up on stool studies 2. Acute kidney injury, prerenal likely secondary to dehydration, secondary to #1, slowly improving Admitting creatinine was 2.18, creatinine now is 1.53 Continue on IV fluids 3. Type II DM, blood sugars are controlled Hold home Lantus for now in the light of poor p.o. intake Continue with insulin scale 4. Hypertension, controlled, would hold losartan in light of SALVATORE 5. Paroxysmal atrial fibrillation, in NSR, on carvedilol, apixaban 6. DVT PPx- Apixaban Charges/Coding Visit Charges Inpatient E&M: 36798 Subs Hosp L2
--- NOTE | 2021-11-08 10:35 | CASEMGMT ---
WU MACKAY Assessment: Face to Face with pt for initial transition planning/care coordination assessment. WU MACKAY introduced self and role at [facility], pt voices understanding and consents to assessment. Pt is A/O x4 and answers all questions appropriately at this time. Pt lying in bed with eyes closed through assessment.Care providers, pharmacy, and demographics verified/updated. Admitting Dx: SBO PCP:Donald Specialists:tato Garcia; Miguelito, peter [facility]erred [facility]acy[facility] Insurance: [facility] Dual Comp, TUAN Prescription Benefit: yes LW/HPOA: Pt has a LW/DPOA on file at [facility]. Her DPOA is her dtr, Lisa Lawson. LNOK: Lisa Lawson, dtr Living Arrangements: Pt lives in a mobile home with her mother with a ramp to enter. Pt reports she is I in ADL's and takes care of her mother. Transportation: Pt drives self and denies concerns with transportation. DME/HHC/SNF: Pt has a cane and walker at her home but it is her mothers. She does not use any AD. Pt has a BGM, states she doesn't check her blood sugars very often. She tried to get the Marilyn Freestyle and was denied. Pt states she has insulin and pen needles but will soon run out of the needles. [facility] does not have any as they are on backorder. Pt states her doctor is aware and is working on obtaining for her. Pt denies hx of HHC or SNF stays. Pt states no concerns with going home at time of dc. Pt states no further concerns/needs. CM to follow. Advised pt to ask CM if any further question/concerns/needs arise, voices understanding. Pt Goal: Home Plan: Home
[2021-11-08 11:55] LABS: Bedside Glucose 102 mg/dL (74-106)
[2021-11-08 14:43] VITALS: BP 98/56; PULSE 86; RESP 18; TEMP 36.6; O2SAT 94
[2021-11-08] MEDS: Lactated Ringers 1,000 ML 125 ML IV ×2 (14:46→20:56)
[2021-11-08 16:36] LABS: Bedside Glucose 77 mg/dL (74-106)
[2021-11-08 17:37] VITALS: BP 110/42; PULSE 50; RESP 18; O2SAT 100
[2021-11-08 17:40] LABS: Bedside Glucose 96 mg/dL (74-106)
[2021-11-08] MEDS: Ondansetron 4 MG/2 ML Vial IV (17:41)
[2021-11-08 20:44] VITALS: BP 115/50; PULSE 64; RESP 18; TEMP 36.6; O2SAT 99
[2021-11-08] MEDS: Allopurinol 100 MG Tablet PO (20:56)
[2021-11-08] MEDS: traZODone 50 MG Tablet 150 MG PO (20:56)
[2021-11-08 22:11] LABS: Bedside Glucose 106 mg/dL (74-106)
[2021-11-09 02:59] VITALS: BP 108/34; PULSE 61; RESP 18; TEMP 36.6; O2SAT 95
[2021-11-09] MEDS: Lactated Ringers 1,000 ML 125 ML IV ×3 (03:03→20:19)
[2021-11-09 06:14] LABS: Absolute Lymphocyte Count 1.86 X10^3/uL (0.83-4.51); Absolute Neutrophil Count 5.1 X10^3/uL (2.0-7.7); Basophil# 0.02 X10^3/uL; Basophil% 0.3 % (0-1); Eosinophil# 0.15 X10^3/uL; Eosinophils% 1.9 % (0-5); Hematocrit 28.2 % (37-47); Hemoglobin 9.1 g/dL (12.0-15.0); Lymphocyte # 1.86 X10^3/ul (0.83-4.51); Lymphocyte % 23.9 % (19-41); Mean Corp Hgb Conc 32.3 g/dL (32-36); Mean Corpuscular Hgb 30.8 pg (27.0-32.0); Mean Corpuscular Volume 95.6 fL (81-99); Mean Platelet Vol. 8.9 fl (6.2-12.0); Monocyte# 0.59 X10^3/uL; Monocyte% 7.6 % (0-10); NRBC Flagged by Analyzer 0 % (0-5); Neutrophil # 5.13 X10^3/uL (2.7-7.7); Neutrophil % 65.9 % (47-70); Platelet Count 334 K/mm3 (150-450); RBC Distribution Width CV 14.5 % (11.6-14.6); RBC Distribution Width SD 50.5 fl (35.1-43.9); Red Blood Count 2.95 M/mm3 (4.2-5.4); White Blood Count 7.8 K/mm3 (4.4-11.0)
[2021-11-09] MEDS: Levothyroxine 112 MCG Tablet PO (06:37)
--- NOTE | 2021-11-09 06:44 | PN.SURG_ITS ---
Subjective Subjective Patient clears no nausea or vomiting. She had several bowel movements yesterday. Her abdominal pain is greatly improved from yesterday and still mildly present. Objective Data Objective Data Vital Signs: Vital Signs Temp Pulse Resp BP Pulse Ox 97.9 F 61 18 108/34 L 95 11/09/21 02:59 11/09/21 02:59 11/09/21 02:59 11/09/21 02:59 11/09/21 02:59 Oxygen Delivery Method Room Air Weight: 123 lb 3.814 oz Body Mass Index (BMI) 24.9 Intake & Output: Intake and Output for Last 24 Hours 11/07/21 11/08/21 11/09/21 23:59 23:59 23:59 Intake Total 500 / 500 3453.33 / 3453.33 764.58 / 764.58 Balance 500 / 500 3453.33 / 3453.33 764.58 / 764.58 Lab / Micro Data Result Diagrams: 11/09/21 05:31 11/08/21 03:46 Labs: Laboratory Results - last 24 hr 11/08/21 06:46: POC Glucose 104 11/08/21 11:06: POC Glucose 102 11/08/21 16:23: POC Glucose 77 11/08/21 17:34: POC Glucose 96 11/08/21 20:56: POC Glucose 106 11/09/21 05:31: WBC 7.8, RBC 2.95 L, Hgb 9.1 L, Hct 28.2 L, MCV 95.6, MCH 30.8, MCHC 32.3, RDW Std Deviation 50.5 H, RDW Coeff of Yaw 14.5, Plt Count 334, MPV 8.9, Immature Gran % (Auto) 0.400, Neut % (Auto) 65.9, Lymph % (Auto) 23.9, [place] % (Auto) 7.6, Eos % (Auto) 1.9, Baso % (Auto) 0.3, Absolute Neuts (auto) 5.1, Absolute Lymphs (auto) 1.86, Nucleated RBC % 0 Micro: Microbiology 11/08/21 10:48 Stool Enteric Bacteriology - Final 11/08/21 10:48 Stool C. difficile DNA Amplification - Final 11/07/21 16:55 Nasal Secretion SARS-CoV-2 & FLU Antigen (Rapid) - Final Physical Exam Const oriented x3 Cardio regular rate and regular rhythm GI soft to palpation Inspection: Negative for abdominal distention Palpation: tender Assessment & Plan Assessment/Plan (1) Gastroenteritis: PLAN: Patient seems improved today. She tolerated clear liquids with no nausea or vomiting or abdominal pain is improved and she had 4 bowel movements. I will advance her to a regular diet as tolerated. When she tolerates diet she can be discharged. This is likely gastroenteritis with no obstruction. Franck Butler MD Pager: [facility] [address] [place] [address], [address] [place] [address] Office:
[2021-11-09 06:45] LABS: Bedside Glucose 92 mg/dL (74-106)
[2021-11-09 06:51] LABS: ALB/GLOB Ratio 0.9 RATIO (0.9-2.4); AST(SGOT) 5 U/L (15-37); Alanine Aminotransfer ALT/SGPT 13 U/L (13-56); Albumin, Serum 2.7 g/dL (3.2-5.0); Alkaline Phosphatase 68 U/L (45-117); Anion Gap 7 (5-15); BUN 20 mg/dL (7-18); BUN/Creat Ratio 21.6 RATIO (10-20); Chloride 114 mmol/L (98-107); Creatinine, Serum 0.92 mg/dL (0.55-1.02); EST Glomerular Filtration Rate 65 mL/min (>60); Est Glom Filt Rate - Afr Amer 78 mL/min (>60); Globulin 2.9 g/dL (2.2-4.2); Glucose 91 mg/dL (74-106); Magnesium 1.4 mg/dL (1.6-2.6); Potassium 3.4 mmol/L (3.5-5.1); Protein, Total 5.6 g/dL (6.4-8.2); Sodium Level 141 mmol/L (136-145)
--- NOTE | 2021-11-09 08:48 | PCM.PN.HOSP ---
Subjective Subjective Follow-up on diarrhea/partial small bowel obstruction: Patient was seen and examined.? She complains of abdominal cramps. She admits to having multiple bowel movement. No vomiting or fever. Stool studies have been negative. Stool for C. difficile is negative. Objective Data Objective Data Vital Signs: Vital Signs Temp Pulse Resp BP Pulse Ox 97.9 F 61 18 108/34 L 95 11/09/21 02:59 11/09/21 02:59 11/09/21 02:59 11/09/21 02:59 11/09/21 02:59 Oxygen Delivery Method Room Air Weight: 55.9 kg Body Mass Index (BMI) 24.9 Intake & Output: Intake and Output for Last 24 Hours 11/07/21 11/08/21 11/09/21 23:59 23:59 23:59 Intake Total 500 / 500 3453.33 / 3453.33 764.58 / 764.58 Balance 500 / 500 3453.33 / 3453.33 764.58 / 764.58 Lab / Micro Data Result Diagrams: 11/09/21 05:31 11/09/21 05:31 Labs: Laboratory Results - last 24 hr 11/08/21 11:06: POC Glucose 102 11/08/21 16:23: POC Glucose 77 11/08/21 17:34: POC Glucose 96 11/08/21 20:56: POC Glucose 106 11/09/21 05:31: WBC 7.8, RBC 2.95 L, Hgb 9.1 L, Hct 28.2 L, MCV 95.6, MCH 30.8, MCHC 32.3, RDW Std Deviation 50.5 H, RDW Coeff of Yaw 14.5, Plt Count 334, MPV 8.9, Immature Gran % (Auto) 0.400, Neut % (Auto) 65.9, Lymph % (Auto) 23.9, [place] % (Auto) 7.6, Eos % (Auto) 1.9, Baso % (Auto) 0.3, Absolute Neuts (auto) 5.1, Absolute Lymphs (auto) 1.86, Nucleated RBC % 0 11/09/21 05:31: Sodium 141, Potassium 3.4 L, Chloride 114 H, Carbon Dioxide 20.0 L, Anion Gap 7, BUN 20 H, Creatinine 0.92, Estim Creat Clear Calc 53.80, Est GFR (MDRD) Af Amer 78, Est GFR (MDRD) Non-Af 65, BUN/Creatinine Ratio 21.6 H, Glucose 91, Calcium 8.0 L, Magnesium 1.4 L, Total Bilirubin 0.50, AST 5 L, ALT 13, Alkaline Phosphatase 68, Total Protein 5.6 L, Albumin 2.7 L, Globulin 2.9, Albumin/Globulin Ratio 0.9 11/09/21 06:36: POC Glucose 92 Micro: Microbiology 11/08/21 10:48 Stool Enteric Bacteriology - Final 11/08/21 10:48 Stool C. difficile DNA Amplification - Final 11/07/21 16:55 Nasal Secretion SARS-CoV-2 & FLU Antigen (Rapid) - Final Physical Exam Narrative Physical exam: General: Alert, Oriented x3, Cooperative, appears frail HEENT: Atraumatic Oral: Moist Mucosa Neck: Supple Lungs: Clear to auscultation Cardiovascular: HS I+II, regular, no murmurs Abdomen: Bowel Sounds Present, Soft, Non Tender Extremities: No edema Skin: No rashes, No breakdown Neurological: Grossly intact Psych/Mental Status: Appropriate Assessment & Plan Assessment/Plan (1) Gastroenteritis: PLAN: 1. Acute gastroenteritis/partial small bowel obstruction, mildly improved Patient still with multiple bowel movements. Stool studies have been negative Currently on regular diet Continue IV fluids Follow-up on stool studies 2. Acute kidney injury, prerenal likely secondary to dehydration, secondary to #1, resolved Admitting creatinine was 2.18, creatinine now is 0.92 Continue on IV fluids for now 3. Hypokalemia/hypomagnesemia, replace, recheck in a.m. 4. Type II DM, blood sugars are controlled Continue to hold home Lantus for now in the light of poor p.o. intake Continue with insulin scale 5. Hypertension, controlled, Continue to hold losartan in light of SALVATORE Continue on amlodipine. 6. Paroxysmal atrial fibrillation, in NSR, patient is electively bradycardic Would hold carvedilol today Continue on apixaban 7. DVT PPx- Apixaban Charges/Coding Visit Charges Inpatient E&M: 49829 Subs Hosp L2
[2021-11-09 09:07] VITALS: BP 126/57; PULSE 55; RESP 18; TEMP 36.7; O2SAT 93
[2021-11-09] MEDS: Magnesium Sulfate 4gm/100mL 4 GM/100 ML IV.SOLN. IV (09:10)
[2021-11-09] MEDS: Potassium Chloride Oral Tablet 20 MEQ 60 MEQ PO (09:11)
[2021-11-09] MEDS: APIXABAN 5 MG TABLET PO ×2 (09:12→21:57)
[2021-11-09] MEDS: TICAGRELOR 90 MG TABLET PO ×2 (09:12→21:57)
[2021-11-09] MEDS: Pantoprazole Sodium 40 MG Tablet PO (09:12)
[2021-11-09] MEDS: Escitalopram Oxalate 10 MG Tablet PO (09:12)
[2021-11-09] MEDS: Divalproex Sodium 125 MG SPRINKLE PO ×2 (09:12→21:57)
[2021-11-09] MEDS: Gabapentin 300 MG Capsule 900 MG PO ×2 (09:17→21:57)
[2021-11-09] MEDS: Ondansetron 4 MG/2 ML Vial IV (09:24)
[2021-11-09] MEDS: Dicyclomine 10 MG Capsule 20 MG PO ×2 (10:31→20:19)
[2021-11-09] MEDS: amLODIPine 2.5 MG Tablet PO (10:31)
[2021-11-09 11:35] LABS: Bedside Glucose 149 mg/dL (74-106)
[2021-11-09 14:45] VITALS: BP 106/38; PULSE 54; RESP 18; TEMP 36.6; O2SAT 98
[2021-11-09 16:10] LABS: Bedside Glucose 137 mg/dL (74-106)
[2021-11-09 20:14] VITALS: BP 149/69; PULSE 52; RESP 18; TEMP 36.6; O2SAT 100
[2021-11-09 21:55] LABS: Bedside Glucose 167 mg/dL (74-106)
[2021-11-09] MEDS: traZODone 50 MG Tablet 150 MG PO (21:57)
[2021-11-09] MEDS: Allopurinol 100 MG Tablet PO (21:57)
[2021-11-09] MEDS: Insulin Lispro 100 UNIT/ML INSULN.PEN SC (21:59)
[2021-11-10 02:59] VITALS: BP 114/43; PULSE 66; RESP 18; TEMP 36.8; O2SAT 93
[2021-11-10] MEDS: Levothyroxine 112 MCG Tablet PO (03:04)
[2021-11-10] MEDS: Dicyclomine 10 MG Capsule 20 MG PO (03:04)
[2021-11-10] MEDS: Lactated Ringers 1,000 ML 125 ML IV (03:04)
[2021-11-10 05:19] LABS: Absolute Lymphocyte Count 2.13 X10^3/uL (0.83-4.51); Absolute Neutrophil Count 3.6 X10^3/uL (2.0-7.7); Basophil# 0.03 X10^3/uL; Basophil% 0.5 % (0-1); Eosinophils% 1.5 % (0-5); Hematocrit 26.2 % (37-47); Hemoglobin 8.6 g/dL (12.0-15.0); Lymphocyte # 2.13 X10^3/ul (0.83-4.51); Lymphocyte % 32.9 % (19-41); Mean Corp Hgb Conc 32.8 g/dL (32-36); Mean Corpuscular Volume 94.6 fL (81-99); Mean Platelet Vol. 9.2 fl (6.2-12.0); Monocyte% 9.3 % (0-10); NRBC Flagged by Analyzer 0 % (0-5); Neutrophil % 55.5 % (47-70); Platelet Count 307 K/mm3 (150-450); RBC Distribution Width CV 14.4 % (11.6-14.6); RBC Distribution Width SD 49.7 fl (35.1-43.9); Red Blood Count 2.77 M/mm3 (4.2-5.4); White Blood Count 6.5 K/mm3 (4.4-11.0)
[2021-11-10] MEDS: Insulin Lispro 100 UNIT/ML INSULN.PEN SC (05:33)
[2021-11-10 05:41] LABS: Bedside Glucose 151 mg/dL (74-106)
[2021-11-10 05:52] LABS: AST(SGOT) 9 U/L (15-37); Alanine Aminotransfer ALT/SGPT 16 U/L (13-56); Albumin, Serum 2.8 g/dL (3.2-5.0); Alkaline Phosphatase 69 U/L (45-117); Anion Gap 7 (5-15); BUN 13 mg/dL (7-18); BUN/Creat Ratio 16.5 RATIO (10-20); Calcium,Total 8.4 mg/dL (8.5-10.1); Chloride 110 mmol/L (98-107); Creatinine, Serum 0.79 mg/dL (0.55-1.02); EST Glomerular Filtration Rate 78 mL/min (>60); Est Glom Filt Rate - Afr Amer 94 mL/min (>60); Estimated Creatinine Clearance 62.65 ml/min; Globulin 2.9 g/dL (2.2-4.2); Glucose 149 mg/dL (74-106); Magnesium 1.7 mg/dL (1.6-2.6); Potassium 3.7 mmol/L (3.5-5.1); Protein, Total 5.7 g/dL (6.4-8.2); Sodium Level 140 mmol/L (136-145)
--- NOTE | 2021-11-10 07:19 | PCM.PN.SRG ---
Subjective Subjective Patient reports she is doing better. She did have some cramping abdominal pain yesterday after eating but she rates her pain at 2 out of 10 today. She is passing flatus and having bowel movements. No nausea or vomiting. Objective Data Objective Data Vital Signs: Vital Signs Temp Pulse Resp BP Pulse Ox 98.2 F 66 18 114/43 L 93 11/10/21 02:59 11/10/21 02:59 11/10/21 02:59 11/10/21 02:59 11/10/21 02:59 Oxygen Delivery Method Room Air Weight: 123 lb 3.814 oz Body Mass Index (BMI) 24.9 Intake & Output: Intake and Output for Last 24 Hours 11/08/21 11/09/21 11/10/21 23:59 23:59 23:59 Intake Total 3453.33 / 3453.33 2985.08 / 2985.08 843.75 / 843.75 Balance 3453.33 / 3453.33 2985.08 / 2985.08 843.75 / 843.75 Lab / Micro Data Result Diagrams: 11/10/21 04:31 11/10/21 04:31 Labs: Laboratory Results - last 24 hr 11/09/21 11:29: POC Glucose 149 H 11/09/21 16:07: POC Glucose 137 H 11/09/21 20:22: POC Glucose 167 H 11/10/21 04:31: WBC 6.5, RBC 2.77 L, Hgb 8.6 L, Hct 26.2 L, MCV 94.6, MCH 31.0, MCHC 32.8, RDW Std Deviation 49.7 H, RDW Coeff of Yaw 14.4, Plt Count 307, MPV 9.2, Immature Gran % (Auto) 0.300, Neut % (Auto) 55.5, Lymph % (Auto) 32.9, [place] % (Auto) 9.3, Eos % (Auto) 1.5, Baso % (Auto) 0.5, Absolute Neuts (auto) 3.6, Absolute Lymphs (auto) 2.13, Nucleated RBC % 0 11/10/21 04:31: Sodium 140, Potassium 3.7, Chloride 110 H, Carbon Dioxide 23.0, Anion Gap 7, BUN 13, Creatinine 0.79, Estim Creat Clear Calc 62.65, Est GFR (MDRD) Af Amer 94, Est GFR (MDRD) Non-Af 78, BUN/Creatinine Ratio 16.5, Glucose 149 H, Calcium 8.4 L, Magnesium 1.7, Total Bilirubin 0.20, AST 9 L, ALT 16, Alkaline Phosphatase 69, Total Protein 5.7 L, Albumin 2.8 L, Globulin 2.9, Albumin/Globulin Ratio 1.0 11/10/21 05:32: POC Glucose 151 H Micro: Microbiology 11/08/21 10:48 Stool Enteric Bacteriology - Final 11/08/21 10:48 Stool C. difficile DNA Amplification - Final 11/07/21 16:55 Nasal Secretion SARS-CoV-2 & FLU Antigen (Rapid) - Final Assessment & Plan Assessment/Plan (1) Gastroenteritis: PLAN: Patient reports that she is feeling better this morning with no nausea or vomiting overnight. She rates her pain a 2 out of 10. If she tolerates breakfast and does not have increase in pain she may be discharged home. If eating makes her experience more pain and cramping ligated yesterday I would advise a CT scan with oral contrast. Franck Butler MD Pager: [facility] [address] [place] [address], [address] [place] [address] Office:
--- NOTE | 2021-11-10 07:41 | PCM.DC ---
Discharge Instructions Diet Discharge Diet: 2000 mg Sodium Diet and Carb Control Diet Activity Discharge Activity: Return to Normal Activity Weight Bearing Status: Weight bearing as tolerated Follow Up Care Test Results: Test results from this visit will be discussed in further detail at your follow-up appointment, if applicable. Discharge Plan Admission Admit Date/Time: 11/07/21 20:45 Primary Reason for Your Visit: Acute gastroenteritis/SBO Attending Provider: Gwendolyn Busby Primary Care Provider: Pat Bennett Consulting Providers: Franck Butler ; Carrillo Buckley Instructions Additional Instructions / Restrictions: Continue to keep yourself hydrated. Take note of changes to your medications - Your Lantus dose has been decreased to 15 units QHS. This may be increased back to your usual in the next Your Triamterene was stopped because of your kidneys and recent dehydration from the gastroenteritis Resume your Coreg on 11/11/21. Continue to measure and keep a log of your BP and pulse. Monitor for systolic blood pressure >160, HR <55. Let your physician see. Follow-up with your primary care doctor within a week and have blood work to follow-up on your electrolytes and kidney function. Discharge Orders/Prescriptions Prescriptions: New insulin glargine-yfgn 100 unit/mL (3 mL) Insulin Pen 15 unit subcut QHS Qty: 0 0RF Continued nitroglycerin [Nitrostat] 0.4 mg tablet, sublingual 0.4 mg sublingual Q5-15M PRN (Reason: chest pain) Qty: 25 3RF Rx Instructions: do not exceed 3 doses per episode (DME) FreeStyle Marilyn 14 Day Sensor Kit See Rx Instructions .ROUTE .MEDSUPPLY Qty: 2 6RF Rx Instructions: As directed colestipol 1 gram Tablet 1 g PO DAILY trazodone 50 mg tablet 150 mg PO QHS levothyroxine 112 mcg tablet 112 mcg PO MOTUWETHFR gabapentin 600 mg Tablet 900 mg PO BID Ozempic 0.25 mg or 0.5 mg(2 mg/1.5 mL) pen injector 0.5 mg SUBCUT WE (DME) blood-glucose meter [OneTouch Verio Flex Start] Kit See Rx Instructions .ROUTE .MEDSUPPLY Qty: 1 0RF Rx Instructions: Twice daily and as needed (DME) OneTouch Verio test strips Strip See Rx Instructions .ROUTE .MEDSUPPLY Qty: 300 3RF Rx Instructions: Check 3 times a day and as needed (DME) lancets [OneTouch UltraSoft Lancets] Misc See Rx Instructions .ROUTE .MEDSUPPLY Qty: 300 3RF Rx Instructions: Check 3 times a day and as needed albuterol sulfate 90 mcg/actuation HFA aerosol inhaler 2 puff INHALATION Q6H PRN (Reason: Wheezing) Qty: 8.5 6RF allopurinol 100 mg tablet 100 mg PO QHS Qty: 90 3RF amlodipine 2.5 mg tablet 2.5 mg PO DAILY Qty: 90 3RF Rx Instructions: BP Eliquis 5 mg tablet 5 mg PO BID Qty: 180 3RF Hold Instructions: [facility]; hold 02/12 atorvastatin 80 mg tablet 80 mg PO QHS Qty: 90 1RF Rx Instructions: cholesterol carvedilol 6.25 mg tablet 6.25 mg PO BID Qty: 180 4RF Rx Instructions: must administer with a meal/food divalproex 125 mg capsule, delayed rel sprinkle 125 mg PO BID Qty: 180 3RF escitalopram oxalate [Lexapro] 10 mg tablet 10 mg PO DAILY Qty: 90 3RF losartan 50 mg tablet 50 mg PO DAILY Qty: 90 3RF pantoprazole 40 mg tablet,delayed release (DR/EC) 40 mg PO DAILY Qty: 90 3RF ticagrelor 90 mg tablet 90 mg PO BID Qty: 180 3RF Hold Instructions: 04/15/2020: SOB nystatin [Nyamyc] 100,000 unit/gram powder 1 applic topical BID PRN (Reason: skin infection) Qty: 30 0RF (DME) pen needle, diabetic [Lite Touch Insulin Pen [place]] 31 gauge x 5/16 needle See Rx Instructions .ROUTE .MEDSUPPLY Qty: 100 4RF Rx Instructions: As directed Discontinued insulin glargine 100 unit/mL (3 mL) insulin pen 30 unit SC QHS Qty: 15 2RF triamterene-hydrochlorothiazid 37.5-25 mg tablet 1 tab PO DAILY Qty: 90 3RF Referrals / Follow Up: Pat Bennett MD [Primary Care Provider] - In 1 Week Disposition Disposition (needs filled in before D/C Order can be placed): Home, Self Care
[2021-11-10] MEDS: amLODIPine 2.5 MG Tablet PO (08:08)
[2021-11-10] MEDS: Escitalopram Oxalate 10 MG Tablet PO (08:08)
[2021-11-10] MEDS: TICAGRELOR 90 MG TABLET PO (08:08)
[2021-11-10] MEDS: Divalproex Sodium 125 MG SPRINKLE PO (08:08)
[2021-11-10] MEDS: APIXABAN 5 MG TABLET PO (08:08)
[2021-11-10 08:15] VITALS: BP 133/48; PULSE 55; RESP 18; TEMP 36.4; O2SAT 97
[2021-11-10] MEDS: Gabapentin 300 MG Capsule 900 MG PO (08:17)
--- NOTE | 2021-11-10 09:40 | DS.PCM_ITS ---
Providers Date of Admission: 11/07/21 Date of Discharge: 11/10/21 Primary Care Physician: Dr. Pat Bennett MD Consultations 11/07/21 21:30 Consult: General Surgery Routine Consulting Provider: Franck Butler Reason for Consult: SBO EMERGENT Consult: No MD Notified: Yes Date Notified: 11/07/21 Time Notified: 20:49 Method of Notification: ED Physician Initiated Reason For Visit: SBO Diagnosis Discharge Diagnosis (1) Gastroenteritis: Status: Acute Code(s): K52.9 - Noninfective gastroenteritis and colitis, unspecified Medications at Discharge Home Medications blood-glucose meter ([employer] Verio Flex Start) #1 ea 11/11/20 blood sugar diagnostic ([employer] Fem[employer] TechnologiesTouch Verio test strips) #300 ea 11/12/20 lancets ([employer]Touch UltraSoft Lancets) #300 ea 11/12/20 nitroglycerin 0.4 mg sublingual tablet (Nitrostat) 0.4 mg sublingual Q5-15M PRN chest pain #25 tabs 01/11/21 flash glucose sensor (FreeStyle Marilyn 14 Day Sensor) #2 ea 07/26/21 albuterol sulfate 90 mcg/actuation aerosol inhaler 2 puff inhalation Q6H PRN Wheezing #8.5 grams 10/27/21 allopurinol 100 mg tablet 100 mg PO QHS gout #90 tabs 10/27/21 amlodipine 2.5 mg tablet 2.5 mg PO DAILY #90 tabs 10/27/21 apixaban 5 mg tablet (Eliquis) 5 mg PO BID #180 tabs 10/27/21 atorvastatin 80 mg tablet 80 mg PO QHS #90 tabs 10/27/21 carvedilol 6.25 mg tablet 6.25 mg PO BID #180 tabs 10/27/21 divalproex 125 mg capsule,delayed release sprinkle 125 mg PO BID bipolar #180 caps 10/27/21 escitalopram oxalate 10 mg tablet (Lexapro) 10 mg PO DAILY #90 tabs 10/27/21 losartan 50 mg tablet 50 mg PO DAILY #90 tabs 10/27/21 nystatin 100,000 unit/gram topical powder (Nyamyc) 1 applic topical BID PRN skin infection #30 grams 10/27/21 pantoprazole 40 mg tablet,delayed release 40 mg PO DAILY gerd #90 tabs 10/27/21 ticagrelor 90 mg tablet 90 mg PO BID #180 tabs 10/27/21 pen needle, diabetic 31 gauge x 5/16 (Lite Touch Insulin Pen [place]) #100 ea 11/05/21 colestipol 1 gram tablet 1 g PO DAILY cholesterol 11/07/21 gabapentin 600 mg tablet 900 mg PO BID neuropathy 11/07/21 levothyroxine 112 mcg tablet 112 mcg PO MOTUWETHFR thyroid 11/07/21 semaglutide (Ozempic) 0.5 mg subcut WE diabetes 11/07/21 trazodone 50 mg tablet 150 mg PO QHS sleep 11/07/21 insulin glargine-yfgn 100 unit/mL (3 mL) subcutaneous pen 15 unit (0.15 mL) subcut QHS #0 mL 11/10/21 Hospital Course Operations None Procedures None Summary of Care Provided Minutes Spent on Discharge: 45 Hospital Course: 66y/o with multiple comorbidities including hypertension, type II DM, insulin- dependent who comes in with abdominal pain and distention as well as diarrhea. Patient's work-up in the ED was negative for acute fascia small bowel obstructi on. General surgery was consulted from the emergency room. Patient was admitted to the MedSur floor and managed conservatively, n.p.o. with IV fluids. She continue to have frequent stools. Stool for enteric panel and C. difficile were negative. She was started on a clear liquid diet. Had diet with advance. She was managed symptomatically. She had electrolyte imbalances?hypokalemia and hypomagnesemia that were replaced. She had evidence of acute kidney injury secondary to dehydration that resolved with IV fluids. Her triamterene-hydrochlorothiazide, losartan were held. She was also relatively bradycardic and her Coreg was also held. Patient had relatively low blood sugars and her Lantus was decreased to 10 units. She was much improved and able to tolerate a diet on the day of discharge. She knows about the changes to her medications. She would follow up on her blood pressure and heart rate daily. She knows to follow-up with her primary care doctor within a week to have her kidney function rechecked. She knows also to keep yourself hydrated. She was asked to resume her Coreg on 11/11/21. She was however asked to hold onto her triamterene hydrochlorothiazide. She would continue on losartan. Physical Exam Narrative Physical exam: General: Alert, Oriented x3, Cooperative, looks improved HEENT: Atraumatic Oral: Moist Mucosa Neck: Supple Lungs: Clear to auscultation Cardiovascular: HS I+II, regular, no murmurs Abdomen: Bowel Sounds Present, Soft, Non Tender Extremities: No edema Skin: No rashes, No breakdown Neurological: Grossly intact Psych/Mental Status: Appropriate Weight / BMI Weight Weight: 55.9 kg Body Mass Index (BMI) 24.9 ABG / Lab / Microbiology Data Result Diagrams: 11/10/21 04:31 11/10/21 04:31 Laboratory: Laboratory Results - last 24 hr 11/09/21 11:29: POC Glucose 149 H 11/09/21 16:07: POC Glucose 137 H 11/09/21 20:22: POC Glucose 167 H 11/10/21 04:31: WBC 6.5, RBC 2.77 L, Hgb 8.6 L, Hct 26.2 L, MCV 94.6, MCH 31.0, MCHC 32.8, RDW Std Deviation 49.7 H, RDW Coeff of Yaw 14.4, Plt Count 307, MPV 9.2, Immature Gran % (Auto) 0.300, Neut % (Auto) 55.5, Lymph % (Auto) 32.9, George % (Auto) 9.3, Eos % (Auto) 1.5, Baso % (Auto) 0.5, Absolute Neuts (auto) 3.6, Absolute Lymphs (auto) 2.13, Nucleated RBC % 0 11/10/21 04:31: Sodium 140, Potassium 3.7, Chloride 110 H, Carbon Dioxide 23.0, Anion Gap 7, BUN 13, Creatinine 0.79, Estim Creat Clear Calc 62.65, Est GFR (MDRD) Af Amer 94, Est GFR (MDRD) Non-Af 78, BUN/Creatinine Ratio 16.5, Glucose 149 H, Calcium 8.4 L, Magnesium 1.7, Total Bilirubin 0.20, AST 9 L, ALT 16, Al kaline Phosphatase 69, Total Protein 5.7 L, Albumin 2.8 L, Globulin 2.9, Albumin/Globulin Ratio 1.0 11/10/21 05:32: POC Glucose 151 H Microbiology: Microbiology 11/08/21 10:48 Stool Enteric Bacteriology - Final 11/08/21 10:48 Stool C. difficile DNA Amplification - Final 11/07/21 16:55 Nasal Secretion SARS-CoV-2 & FLU Antigen (Rapid) - Final D/C Instructions Discharge Diet: 2000 mg Sodium Diet and Carb Control Diet Weight Bearing Status: Weight bearing as tolerated Meaningful Use Info Meaningful Use Diagnoses (Choose all that apply): None applicable Discharge Plan Admission Admit Date/Time: 11/07/21 20:45 Primary Reason for Your Visit: Acute gastroenteritis/SBO Attending Provider: Gwendolyn Busby Primary Care Provider: Pat Bennett Consulting Providers: Franck Butler ; Carrillo Buckley Instructions Additional Instructions / Restrictions: Continue to keep yourself hydrated. Take note of changes to your medications - Your Lantus dose has been decreased to 15 units QHS. This may be increased back to your usual in the next Your Triamterene was stopped because of your kidneys and recent dehydration from the gastroenteritis Resume your Coreg on 11/11/21. Continue to measure and keep a log of your BP and pulse. Monitor for systolic blood pressure >160, HR <55. Let your physician see. Follow-up with your primary care doctor within a week and have blood work to follow-up on your electrolytes and kidney function. Discharge Orders/Prescriptions Prescriptions: New insulin glargine-yfgn 100 unit/mL (3 mL) Insulin Pen 15 unit subcut QHS Qty: 0 0RF Continued nitroglycerin [Nitrostat] 0.4 mg tablet, sublingual 0.4 mg sublingual Q5-15M PRN (Reason: chest pain) Qty: 25 3RF Rx Instructions: do not exceed 3 doses per episode (DME) FreeStyle Marilyn 14 Day Sensor Kit See Rx Instructions .ROUTE .MEDSUPPLY Qty: 2 6RF Rx Instructions: As directed colestipol 1 gram Tablet 1 g PO DAILY trazodone 50 mg tablet 150 mg PO QHS levothyroxine 112 mcg tablet 112 mcg PO MOTUWETHFR gabapentin 600 mg Tablet 900 mg PO BID Ozempic 0.25 mg or 0.5 mg(2 mg/1.5 mL) pen injector 0.5 mg SUBCUT WE (DME) blood-glucose meter [[employer] Flex Start] Kit See Rx Instructions .ROUTE .MEDSUPPLY Qty: 1 0RF Rx Instructions: Twice daily and as needed (DME) OneTouch Verio test strips Strip See Rx Instructions .ROUTE .MEDSUPPLY Qty: 300 3RF Rx Instructions: Check 3 times a day and as needed (DME) lancets [OneTouch UltraSoft Lancets] Misc See Rx Instructions .ROUTE .MEDSUPPLY Qty: 300 3RF Rx Instructions: Check 3 times a day and as needed albuterol sulfate 90 mcg/actuation HFA aerosol inhaler 2 puff INHALATION Q6H PRN (Reason: Wheezing) Qty: 8.5 6RF allopurinol 100 mg tablet 100 mg PO QHS Qty: 90 3RF amlodipine 2.5 mg tablet 2.5 mg PO DAILY Qty: 90 3RF Rx Instructions: BP Eliquis 5 mg tablet 5 mg PO BID Qty: 180 3RF Hold Instructions: [facility]; hold 02/12 atorvastatin 80 mg tablet 80 mg PO QHS Qty: 90 1RF Rx Instructions: cholesterol carvedilol 6.25 mg tablet 6.25 mg PO BID Qty: 180 4RF Rx Instructions: must administer with a meal/food divalproex 125 mg capsule, delayed rel sprinkle 125 mg PO BID Qty: 180 3RF escitalopram oxalate [Lexapro] 10 mg tablet 10 mg PO DAILY Qty: 90 3RF losartan 50 mg tablet 50 mg PO DAILY Qty: 90 3RF pantoprazole 40 mg tablet,delayed release (DR/EC) 40 mg PO DAILY Qty: 90 3RF ticagrelor 90 mg tablet 90 mg PO BID Qty: 180 3RF Hold Instructions: 04/15/2020: SOB nystatin [Nyamyc] 100,000 unit/gram powder 1 applic topical BID PRN (Reason: skin infection) Qty: 30 0RF (DME) pen needle, diabetic [Lite Touch Insulin Pen [place]] 31 gauge x 5/16 needle See Rx Instructions .ROUTE .MEDSUPPLY Qty: 100 4RF Rx Instructions: As directed Discontinued insulin glargine 100 unit/mL (3 mL) insulin pen 30 unit SC QHS Qty: 15 2RF triamterene-hydrochlorothiazid 37.5-25 mg tablet 1 tab PO DAILY Qty: 90 3RF Referrals / Follow Up: Pat Bennett MD [Primary Care Provider] - In 1 Week Disposition Disposition (needs filled in before D/C Order can be placed): Home, Self Care Charges/Coding Visit Charges Inpatient E&M: 53215 Disch Hosp
[2021-11-10 09:47] VITALS: BP 133/48; PULSE 55; RESP 18; TEMP 36.4; O2SAT 97
[2021-11-10 10:16] LABS: Ferritin 19 ng/mL (8-252); Iron 28 ug/dL (50-170); Iron Binding Capacity,Total 308 ug/dL (250-450); PERCENT IRON SATURATION 9.1 % (15.0-55.0)
[2021-11-10 10:22] LABS: Platelet Count 317 K/mm3 (150-450); Reticulocyte Count 1.92 % (0.5-1.5)
--- NOTE | 2021-11-10 10:29 | PHA.DC.MR ---
Pharmacy Service has performed discharge medication reconciliation for this patient. The patient's discharge medication list was reviewed for discrepancies and discrepancies were resolved. Home Medications blood-glucose meter (OneTouch Verio Flex Start) #1 ea 11/11/20 blood sugar diagnostic (OneTouch Verio test strips) #300 ea 11/12/20 lancets (OneTouch UltraSoft Lancets) #300 ea 11/12/20 nitroglycerin 0.4 mg sublingual tablet (Nitrostat) 0.4 mg sublingual Q5-15M PRN chest pain #25 tabs 01/11/21 flash glucose sensor (FreeStyle Marilyn 14 Day Sensor) #2 ea 07/26/21 albuterol sulfate 90 mcg/actuation aerosol inhaler 2 puff inhalation Q6H PRN Wheezing #8.5 grams 10/27/21 allopurinol 100 mg tablet 100 mg PO QHS gout #90 tabs 10/27/21 amlodipine 2.5 mg tablet 2.5 mg PO DAILY #90 tabs 10/27/21 apixaban 5 mg tablet (Eliquis) 5 mg PO BID #180 tabs 10/27/21 atorvastatin 80 mg tablet 80 mg PO QHS #90 tabs 10/27/21 carvedilol 6.25 mg tablet 6.25 mg PO BID #180 tabs 10/27/21 divalproex 125 mg capsule,delayed release sprinkle 125 mg PO BID bipolar #180 caps 10/27/21 escitalopram oxalate 10 mg tablet (Lexapro) 10 mg PO DAILY #90 tabs 10/27/21 losartan 50 mg tablet 50 mg PO DAILY #90 tabs 10/27/21 nystatin 100,000 unit/gram topical powder (Nyamyc) 1 applic topical BID PRN skin infection #30 grams 10/27/21 pantoprazole 40 mg tablet,delayed release 40 mg PO DAILY gerd #90 tabs 10/27/21 ticagrelor 90 mg tablet 90 mg PO BID #180 tabs 10/27/21 pen needle, diabetic 31 gauge x 5/16 (Lite Touch Insulin Pen [place]) #100 ea 11/05/21 colestipol 1 gram tablet 1 g PO DAILY cholesterol 11/07/21 gabapentin 600 mg tablet 900 mg PO BID neuropathy 11/07/21 levothyroxine 112 mcg tablet 112 mcg PO MOTUWETHFR thyroid 11/07/21 semaglutide (Ozempic) 0.5 mg subcut WE diabetes 11/07/21 trazodone 50 mg tablet 150 mg PO QHS sleep 11/07/21 insulin glargine-yfgn 100 unit/mL (3 mL) subcutaneous pen 15 unit (0.15 mL) subcut QHS #0 mL 11/10/21
== END 2021-11-10 11:28 | disposition home or self-care (01) | DRG 392 ==
LOC: ED 19:51 → MS3 21:21
PROVIDERS: Emergency Provider Emergency Medicine; PCP Internal Medicine; Visit Provider Internal Medicine
DX: K52.9 Noninfective gastroenteritis and colitis, unspecified (principal); N17.9 Acute kidney failure, unspecified; E11.42 Type 2 diabetes mellitus with diabetic polyneuropathy; I48.0 Paroxysmal atrial fibrillation; E86.0 Dehydration; E03.9 Hypothyroidism, unspecified; Z79.4 Long term (current) use of insulin; E83.42 Hypomagnesemia; E87.6 Hypokalemia; I12.9 Hypertensive chronic kidney disease with stage 1 through stage 4 chronic kidney disease, or unspecified chronic kidney disease; I25.10 Atherosclerotic heart disease of native coronary artery without angina pectoris; F17.210 Nicotine dependence, cigarettes, uncomplicated; R00.1 Bradycardia, unspecified; T44.7X5A Adverse effect of beta-adrenoreceptor antagonists, initial encounter; R42 Dizziness and giddiness; Z95.5 Presence of coronary angioplasty implant and graft; Z90.49 Acquired absence of other specified parts of digestive tract; Z90.710 Acquired absence of both cervix and uterus; Z79.01 Long term (current) use of anticoagulants; Z79.02 Long term (current) use of antithrombotics/antiplatelets; Z79.899 Other long term (current) drug therapy
CPT/HCPCS: 36415; 71045; 74176; 80053; 81001; 82728; 82962; 83540; 83550; 83690; 83735; 84439; 84443; 84484; 85025; 85045; 87428; 87493; 87506; 93005; 93880; 99285; J7030; J7040; J7050; J7120; A4216; J2405

== ENCOUNTER → 2021-11-11 | Outpatient (CLI) | payer MEDICARE, MEDICAID, SELFPAY ==
[2020-06-04 12:24] VITALS: BMI 26.4
--- NOTE | 2021-11-11 13:58 | PFTCOMP ---
COMPLETE PULMONARY FUNCTION TEST INTERPRETATION Brief HPI: Patient is a 66-year-old female, currently under the care of Daina Cunningham, who presents to [facility] for complete pulmonary function tests secondary to diagnosis of dyspnea. Respiratory therapist reports good effort and reproducible results. Interpretation: Forced expiration spirometry shows no large airways obstructive ventilatory defect with an FEV1 of 80% predicted. There is no significant bronchodilator response by strict ATS criteria. Spirograms are of good quality and plateau normally. The respiratory flow volume loop shows decreased expiratory flow rates at high lung volumes consistent with small airways obstruction. Lung volumes by body plethysmography show a total lung capacity at the lower limit of normal (3.33 L), 87% predicted. All other lung volumes are reduced symmetrically. Diffusion capacity by carbon monoxide is decreased, even when corrected for hemoglobin, at 69% predicted. The airway resistance is elevated. No previous pulmonary function tests were available for review. Impression: Isolated reduction in diffusion capacity with some stigmata of possible small airways disease.
== END | disposition home or self-care (01) ==
LOC: PSN 09:40
PROVIDERS: PCP Internal Medicine; Referring Provider Nurse Practitioner Gerontology; Visit Provider Nurse Practitioner Gerontology
DX: R06.00 Dyspnea, unspecified (principal)
CPT/HCPCS: 94060; 94726; 94729

== ENCOUNTER 2021-11-16 10:47 | Emergency (ER) | payer MEDICARE, MEDICAID, SELFPAY ==
[2020-06-04 12:24] VITALS: BMI 26.4
[2021-11-16 10:48] VITALS: BP 104/64; PULSE 52; RESP 18; TEMP 36.8; O2SAT 100; BMI 25.0
[2021-11-16 11:05] VITALS: BP 104/62; PULSE 52; RESP 17; TEMP 36.8
--- NOTE | 2021-11-16 11:05 | CT_ITS ---
STUDY: CT ABDOMEN AND PELVIS WITH CONTRAST REASON FOR EXAM: Female, 66 years old. Abdominal pain RADIATION DOSAGE (If Supplied By Facility): CTDIvol = ( 9.99 ) mGy, DLP = ( 313.76 ) mGycm TECHNIQUE: Transaxial images were obtained from the dome of the diaphragm to the symphysis pubis without oral contrast. IV 100mL Isovue-300 was administered. Sagittal and coronal images were reconstructed. Individualized dose optimization techniques were used for this CT. COMPARISON: Comparison is made with prior study dated 11/08/2019. FINDINGS: Calcified granuloma in the left lower lobe. Coronary calcification. Normal liver. There are surgical clips in the gallbladder fossa consistent with a prior cholecystectomy. Normal spleen. Normal pancreas. Normal bilateral adrenal glands. Stable small right renal cyst. Normal left kidney. Normal visualized stomach. Residual fluid-filled small bowel loops. The bowel loops are not distended at this time. There are multiple colonic diverticula consistent with diverticulosis. The appendix is visualized and appears normal. There is diffuse atherosclerotic calcification of the abdominal aorta, without a demonstrated aneurysm. Normal inferior vena cava. Normal retroperitoneum. Normal urinary bladder. There is absence of the uterus consistent with a prior hysterectomy. Normal abdominal wall. There are diffuse degenerative changes of the visualized lumbar spine. CT/Abdomen/Pelvis W IV Cont ONLY IMPRESSION: Fluid-filled nondistended small bowel loops. Electronically Signed: Lloyd Evans MD at 11:48 EDT ,
--- NOTE | 2021-11-16 11:07 | EDS_ITS ---
HPI History of Present Illness Chief Complaint: Abd Pain Informant: patient Narrative Narrative: 66-year-old female presenting to the emergency room with abdominal pain and diarrhea. Patient states that she was admitted to the hospital with a partial small bowel obstruction. While in the hospital she was given bowel rest and then that was advanced. Her enteric stool pathogens and C. difficile were negative. She states that on Monday she began to have abdominal distention and diarrhea and pain again. She saw primary care this morning was advised to come to emergency room. She states that she is not as bloated as she was when she woke up. She notes nausea but no vomiting. [facility] Medical History Atherosclerotic heart disease of [place] coronary artery without angina pectoris Atrial fibrillation Diabetes Generalized OA Overweight (BMI 25.0-29.9) Polyneuropathy due to type 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 GFR 30-59 Home Medications blood-glucose meter ([employer] Verio Flex Start) #1 ea 11/11/20 [Rx Last Taken Unknown] blood sugar diagnostic ([employer] (IM[employer])Touch Verio test strips) #300 ea 11/12/20 [Rx Last Taken Unknown] lancets ([employer] UltraSoft Lancets) #300 ea 11/12/20 [Rx Last Taken Unknown] nitroglycerin 0.4 mg sublingual tablet (Nitrostat) 0.4 mg sublingual Q5-15M PRN chest pain #25 tabs 01/11/21 [Rx Last Taken Unknown] flash glucose sensor (FreeStyle Marilyn 14 Day Sensor) #2 ea 07/26/21 [Rx Last Taken Unknown] albuterol sulfate 90 mcg/actuation aerosol inhaler 2 puff inhalation Q6H PRN Wheezing #8.5 grams 10/27/21 [Rx Last Taken Unknown] allopurinol 100 mg tablet 100 mg PO QHS gout #90 tabs 10/27/21 [Rx Last Taken 11/06/21] amlodipine 2.5 mg tablet 2.5 mg PO DAILY #90 tabs 10/27/21 [Rx Last Taken 11/06/21] apixaban 5 mg tablet (Eliquis) 5 mg PO BID #180 tabs 10/27/21 [Rx Last Taken 11/06/21] atorvastatin 80 mg tablet 80 mg PO QHS #90 tabs 10/27/21 [Rx Last Taken 11/06/21] carvedilol 6.25 mg tablet 6.25 mg PO BID #180 tabs 10/27/21 [Rx Last Taken 11/06/21] divalproex 125 mg capsule,delayed release sprinkle 125 mg PO BID bipolar #180 caps 10/27/21 [Rx Last Taken 11/06/21] escitalopram oxalate 10 mg tablet (Lexapro) 10 mg PO DAILY #90 tabs 10/27/21 [Rx Last Taken 11/06/21] losartan 50 mg tablet 50 mg PO DAILY #90 tabs 10/27/21 [Rx Last Taken 11/06/21] nystatin 100,000 unit/gram topical powder (Nyamyc) 1 applic topical BID PRN skin infection #30 grams 10/27/21 [Rx Last Taken Unknown] pantoprazole 40 mg tablet,delayed release 40 mg PO DAILY gerd #90 tabs 10/27/21 [Rx Last Taken 11/06/21] ticagrelor 90 mg tablet 90 mg PO BID #180 tabs 10/27/21 [Rx Last Taken 11/06/21] colestipol 1 gram tablet 1 g PO DAILY cholesterol 11/07/21 [History Last Taken 11/06/21] gabapentin 600 mg tablet 900 mg PO BID neuropathy 11/07/21 [History Last Taken 11/06/21] levothyroxine 112 mcg tablet 112 mcg PO MOTUWETHFR thyroid 11/07/21 [History Last Taken 11/05/21] semaglutide (Ozempic) 0.5 mg subcut WE diabetes 11/07/21 [History Last Taken 11/03/21] insulin glargine-yfgn 100 unit/mL (3 mL) subcutaneous pen 15 unit (0.15 mL) subcut QHS #0 mL 11/10/21 [Rx Last Taken Unknown] pen needle, diabetic 31 gauge x 5/16 (Lite Touch Insulin Pen [place]) #100 ea 11/10/21 [Rx Last Taken Unknown] isosorbide mononitrate 30 mg tablet,extended release 24 hr 30 mg PO DAILY #30 tabs 11/12/21 [Rx Last Taken Unknown] hydrocodone-acetaminophen 5-325mg 5mg-325mg 1 tab PO Q6H PRN PRN Pain 3 days #12 TABLETS 11/16/21 [Rx Last Taken Unknown] ondansetron 4 mg disintegrating tablet 4 mg PO Q6H PRN PRN Nausea #15 tabs 11/16/21 [Rx Last Taken Unknown] sucralfate 1 gram tablet (Carafate) 1 g PO Q6H #56 tabs 11/16/21 [Rx Last Taken Unknown] trazodone 50 mg tablet 75 mg PO QHS sleep 11/16/21 [History Last Taken Unknown] Allergy/AdvReac Type Severity Reaction Status Date / Time duloxetine [From Cymbalta] Allergy Itching Verified 11/16/21 10:50 tomato Allergy Itching Verified 11/16/21 10:50 Family History Sister COPD (chronic obstructive pulmonary disease) Mother COPD (chronic obstructive pulmonary disease) Hypertension Alzheimer's dementia without behavioral disturbance Alzheimer's dementia Father Diabetes Hypertension Myocardial infarction Surgical History History of laparoscopic appendectomy History of total abdominal hysterectomy Hx of cholecystectomy Hx of shoulder surgery Presence of stent in coronary artery (~09/06/21) Social History Smoking Status: Current every day smoker tobacco type: cigarettes alcohol intake: never substance use type: does not use caffeine: No what type of physical activity do you participate in: none ROS ROS ED Constitutional Constitutional ED: Denies chills or weight loss Eyes Eyes: Denies change in vision or diplopia ENT ENT ED: Denies ear pain, rhinorrhea or sore throat Cardiovascular Cardiovascular: Denies chest pain, orthopnea, palpitations or racing heartbeat Respiratory/Chest Respiratory/Chest: Denies cough, dyspnea or orthopnea Gastrointestinal Gastrointestinal: Reports abdominal pain, diarrhea, nausea and other Details: Bloating ; Denies vomiting Genitourinary Genitourinary ED: Denies dysuria, hematuria or urinary frequency Musculoskeletal Musculoskeletal: Denies arthralgias or myalgias Integumentary Denies abscess or rash Neurologic Neurologic: Denies headache(s) or weakness Psychiatric Psychiatric: Denies anxiety, depression, suicidal ideation or suicidal thoughts Endocrine Endocrinology: Denies polydipsia, polyphagia or polyuria Allergic/Immunologic Allergic/Immunologic ED: Denies mouth swelling, tongue swelling or urticaria EXAM Physical Exam Const Vital Signs: 11/16/21 10:48 11/16/21 11:05 Temperature 98.2 F 98.2 F Temperature Source Temporal Temporal Pulse Rate 52 L 52 L Respiratory Rate 18 17 Blood Pressure 104/64 104/62 Blood Pressure Mean 77 76 Pulse Ox 100 Oxygen Delivery Method Room Air Positive well nourished and well developed General Appearance ED: well developed HEENT Reports normocephalic, head/scalp atraumatic and moist mucous membranes Eyes PERRL and EOMs intact bilaterally Neck no lymphadenopathy, supple and no JVD Resp normal respiratory effort and clear to auscultation bilaterally Cardio regular rate, regular rhythm and no murmurs GI Inspection: Negative for abdominal distention Auscultation: normoactive bowel sounds Palpation: soft and tender other (Generalized abdominal tenderness); Negative for guarding or rebound tenderness present Back/Spine no CVA tenderness and normal ROM Extremity normal to inspection General Extremety ED: Negative for edema General Extremity: Negative for edema Neuro oriented x3 and CN's II-XII intact bilaterally Sensorium / Orientation: alert Motor Exam: strength 5/5 throughout Psych mental status grossly normal Mood & Affect: Negative for depressed or tearful Skin no rashes or lesions noted and no wounds MDM MDM MDM Narrative Medical decision making narrative: Patient's blood counts show a white count 11.5 hemoglobin 12.7. BUN of [address] of the abdomen pelvis does not show any obstruction. There are fluid-filled nondistended loops of small bowel. Patient received 2 L of IV fluids and pain medication. 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 She is going to see if she can move up her appointment from December to sooner. I will write for her to have some Zofran and some pain medication at home. Imodium as needed return if worsening or concerns Lab Data Attestation: I reviewed the patient's lab results. Labs: Laboratory Results - last 24 hr 11/16/21 11/16/21 11:10 11:10 WBC 11.5 H RBC 4.19 L Hgb 12.7 Hct 39.1 MCV 93.3 MCH 30.3 MCHC 32.5 RDW Std Deviation 48.6 H RDW Coeff of Yaw 14.3 Plt Count 512 H MPV 9.4 Immature Gran % (Auto) 0.800 Neut % (Auto) 77.2 H Lymph % (Auto) 14.5 L Casey % (Auto) 5.7 Eos % (Auto) 1.4 Baso % (Auto) 0.4 Absolute Neuts (auto) 8.9 H Absolute Lymphs (auto) 1.67 Nucleated RBC % 0 Sodium 130 L Potassium 3.7 Chloride 95 L Carbon Dioxide 24.0 Anion Gap 11 BUN 56 H Creatinine 1.79 H Estim Creat Clear Calc 27.82 Est GFR (MDRD) Af Amer 37 L Est GFR (MDRD) Non-Af 30 L BUN/Creatinine Ratio 31.3 H Glucose 150 H Calcium 8.9 Magnesium 2.0 Total Bilirubin 0.40 AST 11 L ALT 19 Alkaline Phosphatase 94 Total Protein 8.4 H Albumin 4.0 Globulin 4.4 H Albumin/Globulin Ratio 0.9 Lipase 77 Radiography Diagnostic Testing: Clinical Impression(s) from Imaging Studies Abdomen/Pelvis CT 11/16/21 11:05 IMPRESSION: Fluid-filled nondistended small bowel loops. Electronically Signed: Lloyd Evans MD at 11:48 EDT , Discharge Plan Triage Chief Complaint: Abd Pain ED Provider: Jonathan Frank Dx/Rx/DC Orders Clinical Impression: Diarrhea, Acute dehydration, Abdominal pain Instructions: ED Diarrhea, Unknown Cause Prescriptions: New hydrocodone-acetaminophen [hydrocodone-acetaminophen] 5-325 mg tablet 1 tab PO Q6H PRN PRN (Reason: Pain) 3 Days Qty: 12 0RF sucralfate [Carafate] 1 gram tablet 1 g PO Q6H Qty: 56 0RF ondansetron [ondansetron] 4 mg tablet,disintegrating 4 mg PO Q6H PRN PRN (Reason: Nausea) Qty: 15 0RF No Action nitroglycerin [Nitrostat] 0.4 mg tablet, sublingual 0.4 mg sublingual Q5-15M PRN (Reason: chest pain) Qty: 25 3RF Rx Instructions: do not exceed 3 doses per episode (DME) FreeStyle Marilyn 14 Day Sensor Kit See Rx Instructions .ROUTE .MEDSUPPLY Qty: 2 6RF Rx Instructions: As directed colestipol 1 gram Tablet 1 g PO DAILY levothyroxine 112 mcg tablet 112 mcg PO MOTUWETHFR gabapentin 600 mg Tablet 900 mg PO BID Ozempic 0.25 mg or 0.5 mg(2 mg/1.5 mL) pen injector 0.5 mg SUBCUT WE insulin glargine-yfgn 100 unit/mL (3 mL) Insulin Pen 15 unit subcut QHS Qty: 0 0RF trazodone 50 mg tablet 75 mg PO QHS (DME) blood-glucose meter [[employer] Verio Flex Start] Kit See Rx Instructions .ROUTE .MEDSUPPLY Qty: 1 0RF Rx Instructions: Twice daily and as needed (DME) OneTouch Verio test strips Strip See Rx Instructions .ROUTE .MEDSUPPLY Qty: 300 3RF Rx Instructions: Check 3 times a day and as needed (DME) lancets [[employer] UltraSoft Lancets] Misc See Rx Instructions .ROUTE .MEDSUPPLY Qty: 300 3RF Rx Instructions: Check 3 times a day and as needed albuterol sulfate 90 mcg/actuation HFA aerosol inhaler 2 puff INHALATION Q6H PRN (Reason: Wheezing) Qty: 8.5 6RF allopurinol 100 mg tablet 100 mg PO QHS Qty: 90 3RF amlodipine 2.5 mg tablet 2.5 mg PO DAILY Qty: 90 3RF Rx Instructions: BP Eliquis 5 mg tablet 5 mg PO BID Qty: 180 3RF Hold Instructions: [facility]; hold 02/12 atorvastatin 80 mg tablet 80 mg PO QHS Qty: 90 1RF Rx Instructions: cholesterol carvedilol 6.25 mg tablet 6.25 mg PO BID Qty: 180 4RF Rx Instructions: must administer with a meal/food divalproex 125 mg capsule, delayed rel sprinkle 125 mg PO BID Qty: 180 3RF escitalopram oxalate [Lexapro] 10 mg tablet 10 mg PO DAILY Qty: 90 3RF losartan 50 mg tablet 50 mg PO DAILY Qty: 90 3RF pantoprazole 40 mg tablet,delayed release (DR/EC) 40 mg PO DAILY Qty: 90 3RF ticagrelor 90 mg tablet 90 mg PO BID Qty: 180 3RF Hold Instructions: 04/15/2020: SOB nystatin [[facility]] 100,000 unit/gram powder 1 applic topical BID PRN (Reason: skin infection) Qty: 30 0RF (DME) pen needle, diabetic [Lite Touch Insulin Pen [place]] 31 gauge x 5/16 needle See Rx Instructions .ROUTE .MEDSUPPLY Qty: 100 4RF Rx Instructions: As directed isosorbide mononitrate 30 mg tablet extended release 24 hr 30 mg PO DAILY Qty: 30 12RF Primary Care Provider: Pat Bennett Referrals: Pat Bennett MD [Primary Care Provider] - Activity Restrictions/Additional Instructions: Please make sure you are taking your pantoprazole daily. Please call your seconds inspector for early follow-up Disposition Disposition: Home, Self Care
[2021-11-16] MEDS: Ondansetron 4 MG/2 ML Vial IV (11:13)
[2021-11-16] MEDS: Morphine 4 MG/ML Syringe IV (11:13)
[2021-11-16] MEDS: 0.9% Normal Saline 1,000 ML 1000 ML IV (11:13)
[2021-11-16 11:16] LABS: Absolute Lymphocyte Count 1.67 X10^3/uL (0.83-4.51); Absolute Neutrophil Count 8.9 X10^3/uL (2.0-7.7); Basophil# 0.05 X10^3/uL; Basophil% 0.4 % (0-1); Eosinophil# 0.16 X10^3/uL; Eosinophils% 1.4 % (0-5); Hematocrit 39.1 % (37-47); Hemoglobin 12.7 g/dL (12.0-15.0); Lymphocyte # 1.67 X10^3/ul (0.83-4.51); Lymphocyte % 14.5 % (19-41); Mean Corp Hgb Conc 32.5 g/dL (32-36); Mean Corpuscular Hgb 30.3 pg (27.0-32.0); Mean Corpuscular Volume 93.3 fL (81-99); Mean Platelet Vol. 9.4 fl (6.2-12.0); Monocyte# 0.65 X10^3/uL; Monocyte% 5.7 % (0-10); NRBC Flagged by Analyzer 0 % (0-5); Neutrophil # 8.86 X10^3/uL (2.7-7.7); Neutrophil % 77.2 % (47-70); Platelet Count 512 K/mm3 (150-450); RBC Distribution Width CV 14.3 % (11.6-14.6); RBC Distribution Width SD 48.6 fl (35.1-43.9); Red Blood Count 4.19 M/mm3 (4.2-5.4); White Blood Count 11.5 K/mm3 (4.4-11.0)
[2021-11-16 11:30] LABS: ALB/GLOB Ratio 0.9 RATIO (0.9-2.4); AST(SGOT) 11 U/L (15-37); Alanine Aminotransfer ALT/SGPT 19 U/L (13-56); Alkaline Phosphatase 94 U/L (45-117); Anion Gap 11 (5-15); BUN 56 mg/dL (7-18); BUN/Creat Ratio 31.3 RATIO (10-20); Calcium,Total 8.9 mg/dL (8.5-10.1); Chloride 95 mmol/L (98-107); Creatinine, Serum 1.79 mg/dL (0.55-1.02); EST Glomerular Filtration Rate 30 mL/min (>60); Est Glom Filt Rate - Afr Amer 37 mL/min (>60); Estimated Creatinine Clearance 27.82 ml/min; Globulin 4.4 g/dL (2.2-4.2); Glucose 150 mg/dL (74-106); Lipase 77 U/L (73-393); Potassium 3.7 mmol/L (3.5-5.1); Protein, Total 8.4 g/dL (6.4-8.2); Sodium Level 130 mmol/L (136-145)
[2021-11-16] MEDS: 0.9% Normal Saline 1,000 ML 999 ML IV (12:31)
== END 2021-11-16 13:22 | disposition home or self-care (01) ==
PROVIDERS: Emergency Provider Emergency Medicine; PCP Internal Medicine; Visit Provider Emergency Medicine
DX: R19.7 Diarrhea, unspecified (principal); E11.22 Type 2 diabetes mellitus with diabetic chronic kidney disease; E11.42 Type 2 diabetes mellitus with diabetic polyneuropathy; I48.91 Unspecified atrial fibrillation; Z79.4 Long term (current) use of insulin; N18.30 Chronic kidney disease, stage 3 unspecified; E86.0 Dehydration; I25.10 Atherosclerotic heart disease of native coronary artery without angina pectoris; Z87.19 Personal history of other diseases of the digestive system; E66.3 Overweight; Z79.899 Other long term (current) drug therapy; Z79.01 Long term (current) use of anticoagulants; F17.210 Nicotine dependence, cigarettes, uncomplicated; Z90.49 Acquired absence of other specified parts of digestive tract; R10.9 Unspecified abdominal pain; Z68.25 Body mass index [BMI] 25.0-25.9, adult
CPT/HCPCS: 74177; 80053; 83690; 83735; 85025; 96361; 96374; 96375; 99283; J7030; Q9967; A4216; J2405

== ENCOUNTER → 2021-12-10 | Outpatient (CLI) | payer MEDICARE, SELFPAY ==
[2020-06-04 12:24] VITALS: BMI 26.4
== END | disposition home or self-care (01) ==
LOC: LABSPEC 13:43
PROVIDERS: PCP Internal Medicine; Referring Provider Physician Assistant; Visit Provider Physician Assistant
DX: R09.89 Other specified symptoms and signs involving the circulatory and respiratory systems (principal); Z20.822 Contact with and (suspected) exposure to COVID-19
CPT/HCPCS: 87635; U0003; U0005

== ENCOUNTER → 2022-01-14 | Outpatient (CLI) | payer MEDICARE, SELFPAY ==
[2020-06-04 12:24] VITALS: BMI 26.4
[2022-01-14 14:55] LABS: AST(SGOT) 8 U/L (15-37); Alanine Aminotransfer ALT/SGPT 18 U/L (13-56); Albumin, Serum 3.7 g/dL (3.2-5.0); Alkaline Phosphatase 86 U/L (45-117); Bilirubin, Direct 0.09 mg/dL (0.00-0.30); Cholesterol 205 mg/dL (200); Globulin 3.6 g/dL (2.2-4.2); High Density Lipoprotein 54 mg/dL; Protein, Total 7.3 g/dL (6.4-8.2); Triglycerides 208 mg/dL; Very Low Density Lipoprotein 42 mg/dL (5-40)
== END | disposition home or self-care (01) ==
LOC: LAB 13:52
PROVIDERS: PCP Internal Medicine; Referring Provider Internal Medicine Cardiovascular Disease; Visit Provider Internal Medicine Cardiovascular Disease
DX: E78.00 Pure hypercholesterolemia, unspecified (principal); I48.0 Paroxysmal atrial fibrillation; I25.10 Atherosclerotic heart disease of native coronary artery without angina pectoris; I35.0 Nonrheumatic aortic (valve) stenosis; Z95.5 Presence of coronary angioplasty implant and graft
CPT/HCPCS: 36415; 80061; 80076

== ENCOUNTER → 2022-02-01 | Outpatient (CLI) | payer MEDICARE, MEDICAID, SELFPAY ==
[2020-06-04 12:24] VITALS: BMI 26.4
--- NOTE | 2022-02-01 13:35 | ECHOD_ITS ---
Reason For Study: murmur Procedure This was a 2D Doppler, Color Flow transthoracic echocardiogram. The study was technically difficult. Exam performed in department. Left Ventricle Upon the 2D echocardiographic images obtained there appears to be grossly normal left ventricular size, wall motion, and systolic function. The estimated ejection fraction is 65 %. Right Ventricle Normal RV size. Normal systolic function. Atria Normal left atrium. Normal right atrium. No doppler evidence for ASD. Mitral Valve There is no mitral annular calcification. Normal mitral valve. Trivial mitral valve insufficiency. Tricuspid Valve Normal tricuspid valve. Trivial tricuspid valve insufficiency. Unable to estimate RV systolic pressure/pulmonary artery pressure due to technically difficult study. Aortic Valve Trisinus/trileaflet aortic valve. Mild focal aortic valve calcification. Aortic valve sclerosis/mild aortic valve stenosis (based upon the aortic valve mean gradient). Pulmonic Valve The pulmonic valve is not well visualized. Great Vessels Normal sized aortic root. Calcified aortic root. Pericardium/Pleural No pericardial effusion. MMode/2D Measurements & Calculations LVIDd: 5.0 cm IVSd: 0.94 cm Ao root diam: 3.3 cm LVIDs: 2.8 cm LVPWd: 0.92 cm RVDd: 3.5 cm FS: 43.2 % LAV(MOD-bp): 54.8 ml LVAd ap4: 24.9 cm2 LVAd ap2: 30.2 cm2 LAV(MOD-bp) Indexed: 35.7 ml/m2 LVLd ap4: 6.4 cm LVLd ap2: 7.6 cm LAV(MOD-sp2): 53.2 ml EDV(MOD-sp4): 80.3 ml EDV(MOD-sp2): 103.2 ml LAV(MOD-sp4): 39.3 ml EDV(sp4-el): 82.1 ml EDV(sp2-el): 101.7 ml LVAs ap4: 12.0 cm2 LVAs ap2: 14.4 cm2 LVLs ap4: 5.2 cm LVLs ap2: 5.4 cm ESV(MOD-sp4): 24.1 ml ESV(MOD-sp2): 35.3 ml ESV(sp4-el): 23.8 ml ESV(sp2-el): 33.0 ml EF(MOD-sp4): 69.9 % EF(MOD-sp2): 65.8 % EF(sp4-el): 71.0 % SV(MOD-sp4): 56.2 ml SV(MOD-sp2): 67.9 ml SV(sp4-el): 58.3 ml LA dimension(2D): 3.0 cm LA A4 area: 16.8 cm2 RA A4 area: 12.5 cm2 Time Measurements MV dec time: 0.21 sec Doppler Measurements & Calculations MV E max leonor: 82.1 cm/sec Ao V2 max: 157.1 cm/sec MV A max leonor: 76.0 cm/sec MV dec slope: 387.9 cm/sec2 Ao max P.9 mmHg MV E/A: 1.1 Ao V2 mean: 102.4 cm/sec Ao mean P.0 mmHg Ao V2 VTI: 37.4 cm LV V1 max: 92.0 cm/sec PA V2 max: 103.6 cm/sec LV V1 max P.4 mmHg LV V1 mean P.7 mmHg LV V1 mean: 61.5 cm/sec LV V1 VTI: 24.3 cm ECHO/Echo Complete Interpretation Summary The study was technically difficult. Upon the 2D echocardiographic images obtained there appears to be grossly keith l left ventricular size, wall motion, and systolic function. The estimated ejection fraction is 65 %. Trivial mitral valve insufficiency. Trivial tricuspid valve insufficiency. Mild focal aortic valve calcification. Aortic valve sclerosis/mild aortic valve stenosis (based upon the aortic valve mean gradient). Calcified aortic root. Unable to estimate RV systolic pressure/pulmonary artery pressure due to techni shana difficult study. Transmitral diastolic flow velocities suggest diastolic dysfunction (pseudonorm al pattern). Ordering Physician: Dani Farley Referring Physician: Pat Bennett Performed By: Maria De Jesus Grubbs, SHREE, RVT
== END | disposition home or self-care (01) ==
LOC: CVS 13:35
PROVIDERS: PCP Internal Medicine; Referring Provider Internal Medicine Cardiovascular Disease; Visit Provider Internal Medicine Cardiovascular Disease
DX: R01.1 Cardiac murmur, unspecified (principal); I48.0 Paroxysmal atrial fibrillation; I25.10 Atherosclerotic heart disease of native coronary artery without angina pectoris; I35.0 Nonrheumatic aortic (valve) stenosis; Z95.5 Presence of coronary angioplasty implant and graft
CPT/HCPCS: 93306

== ENCOUNTER → 2022-02-07 | Outpatient (CLI) | payer MEDICARE, SELFPAY ==
[2020-06-04 12:24] VITALS: BMI 26.4
[2022-02-07 15:30] LABS: AST(SGOT) 11 U/L (15-37); Alanine Aminotransfer ALT/SGPT 18 U/L (13-56); Albumin, Serum 3.8 g/dL (3.2-5.0); Alkaline Phosphatase 86 U/L (45-117); Anion Gap 9 (5-15); BUN 22 mg/dL (7-18); Chloride 102 mmol/L (98-107); EST Glomerular Filtration Rate 53 mL/min (>60); Est Glom Filt Rate - Afr Amer 64 mL/min (>60); Globulin 3.9 g/dL (2.2-4.2); Glucose 135 mg/dL (74-106); Potassium 4.2 mmol/L (3.5-5.1); Protein, Total 7.7 g/dL (6.4-8.2); Sodium Level 139 mmol/L (136-145); T4 Free Direct 1.22 ng/dL (0.76-1.46); Thyroid Stim Hormone (TSH) 1.74 uIU/mL (0.358-3.74)
== END | disposition home or self-care (01) ==
LOC: LAB 14:15
PROVIDERS: PCP Internal Medicine; Visit Provider Nurse Practitioner Family
DX: E11.22 Type 2 diabetes mellitus with diabetic chronic kidney disease (principal); N18.30 Chronic kidney disease, stage 3 unspecified; E03.9 Hypothyroidism, unspecified
CPT/HCPCS: 36415; 80053; 84439; 84443

== ENCOUNTER 2022-03-28 15:16 | Emergency (ER) | payer MEDICARE, MEDICAID, SELFPAY ==
[2020-06-04 12:24] VITALS: BMI 26.4
[2022-03-28 15:17] VITALS: BP 176/70; PULSE 62; RESP 18; TEMP 37.2; O2SAT 98; BMI 27.2
--- NOTE | 2022-03-28 15:34 | EX.ED.DYSGE1 ---
HPI History of Present Illness Chief Complaint: General Illness Narrative Narrative: 66-year-old female presenting with 6 days of congestion, headache, rhinorrhea. She states she will go home test for COVID on Monday and this was negative. She does not have a significant cough or shortness of breath. No fever at home. Patient states that she can eat and drink normally. She does not have a big appetite. She does not have any nausea or vomiting. She had a little bit of diarrhea the last 3 days. No black or bloody stools. Her biggest complaint today is that her ears hurt. She states her right hurts greater than the left. [facility] Medical History Acute kidney injury superimposed on chronic kidney disease Atherosclerotic heart disease of [place] coronary artery without angina pectoris Atrial fibrillation Bipolar disorder Chest congestion Chronic pancreatic insufficiency Dehydration Depression Diabetes Essential hypertension Fibromyalgia affecting multiple sites Generalized OA Hip pain, bilateral Hypertension Hypomagnesemia Hypotension Near syncope Overweight (BMI 25.0-29.9) Polyneuropathy due to type 2 diabetes mellitus Pre-op evaluation Shoulder pain, bilateral Tachybradycardia syndrome 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 GFR 30-59 Home Medications blood-glucose meter (Piccsy Verio Flex Start kit) #1 ea 11/11/20 [Rx Last Taken Unknown] blood sugar diagnostic (AlereonTouch Verio test strips) #300 ea 11/12/20 [Rx Last Taken Unknown] lancets (AlereonTouch UltraSoft Lancets) #300 ea 11/12/20 [Rx Last Taken Unknown] nitroglycerin 0.4 mg sublingual tablet (Nitrostat) 0.4 mg sublingual Q5-15M PRN chest pain #25 tabs 01/11/21 [Rx Last Taken Unknown] flash glucose sensor (FreeStyle Marilyn 14 Day Sensor kit) #2 ea 07/26/21 [Rx Last Taken Unknown] allopurinol 100 mg tablet 100 mg PO QHS gout #90 tabs 10/27/21 [Rx Last Taken 11/06/21] apixaban 5 mg tablet (Eliquis) 5 mg PO BID #180 tabs 10/27/21 [Rx Last Taken 11/06/21] atorvastatin 80 mg tablet 80 mg PO QHS #90 tabs 10/27/21 [Rx Last Taken 11/06/21] carvedilol 6.25 mg tablet 6.25 mg PO BID #180 tabs 10/27/21 [Rx Last Taken 11/06/21] divalproex 125 mg capsule,delayed release sprinkle 125 mg PO BID bipolar #180 caps 10/27/21 [Rx Last Taken 11/06/21] pantoprazole 40 mg tablet,delayed release 40 mg PO DAILY gerd #90 tabs 10/27/21 [Rx Last Taken 11/06/21] ticagrelor 90 mg tablet 90 mg PO BID #180 tabs 10/27/21 [Rx Last Taken 11/06/21] colestipol 1 gram tablet 1 g PO DAILY cholesterol 11/07/21 [History Last Taken 11/06/21] gabapentin 600 mg tablet 900 mg PO BID neuropathy 11/07/21 [History Last Taken 11/06/21] levothyroxine 112 mcg tablet 112 mcg PO MOTUWETHFR thyroid 11/07/21 [History Last Taken 11/05/21] pen needle, diabetic 31 gauge x 5/16 (Lite Touch Insulin Pen [place]) #100 ea 11/10/21 [Rx Last Taken Unknown] trazodone 50 mg tablet 75 mg PO QHS sleep 11/16/21 [History Last Taken Unknown] albuterol sulfate 90 mcg/actuation aerosol inhaler 2 puff inhalation Q6H PRN Wheezing #8.5 grams 12/20/21 [Rx Last Taken Unknown] hydrochlorothiazide 25 mg tablet 25 mg PO DAILY 01/14/22 [History Last Taken Unknown] losartan 50 mg tablet 50 mg PO DAILY #1 TAB 01/14/22 [Rx Last Taken Unknown] sucralfate 1 gram tablet (Carafate) 1 g PO BID 01/14/22 [History Last Taken Unknown] pen needle, diabetic 32 gauge x 5/32 (BD Ultra-Fine Sophia Pen Needle) #100 ea 02/07/22 [Rx Last Taken Unknown] semaglutide 1 mg/dose (4 mg/3 mL) subcutaneous pen injector (Ozempic) 1 mg (0.75 mL) subcut QWEEK #3 mL 02/07/22 [Rx Last Taken Unknown] insulin glargine 100 unit/mL (3 mL) subcutaneous pen (Lantus Solostar U-100 Insulin) 30 unit (0.3 mL) subcut DAILY #27 mL 02/09/22 [Rx Last Taken Unknown] Humalog KwikPen Insulin 100 unit/mL subcutaneous (insulin lispro) 5 unit (0.05 mL) subcut TID #15 mL 02/21/22 [Rx Last Taken Unknown] escitalopram oxalate 10 mg tablet (Lexapro) 10 mg PO DAILY #90 tabs 03/09/22 [Rx Last Taken Unknown] nystatin 100,000 unit/gram topical powder (Nyamyc) 1 applic topical BID PRN skin infection #30 grams 03/09/22 [Rx Last Taken Unknown] amoxicillin 875 mg-potassium clavulanate 125 mg tablet 1 tab PO BID #20 tabs 03/28/22 [Rx Last Taken Unknown] fluconazole 150 mg tablet (Diflucan) 150 mg PO DAILY 2 days #2 tabs 03/28/22 [Rx Last Taken Unknown] Allergy/AdvReac Type Severity Reaction Status Date / Time duloxetine [From Cymbalta] Allergy Itching Verified 02/07/22 13:15 tomato Allergy Itching Verified 02/07/22 13:15 adhesive tape [plastic tape] AdvReac Rash Verified 03/28/22 15:20 isosorbide AdvReac Intermediate Headache Uncoded 02/07/22 13:15 and chest pain Family History Sister COPD (chronic obstructive pulmonary disease) Mother COPD (chronic obstructive pulmonary disease) Hypertension Alzheimer's dementia without behavioral disturbance Alzheimer's dementia Father Diabetes Hypertension Myocardial infarction Surgical History History of laparoscopic appendectomy History of total abdominal hysterectomy Hx of cholecystectomy Hx of shoulder surgery Presence of stent in coronary artery (~09/06/21) Social History Smoking Status: Current every day smoker tobacco type: cigarettes alcohol intake: never substance use type: does not use caffeine: No what type of physical activity do you participate in: none ROS ROS ED Constitutional Constitutional ED: Denies chills or fever(s) Eyes Eyes: Denies change in vision or diplopia ENT ENT ED: Reports ear pain bilateral, rhinorrhea and sore throat Cardiovascular Cardiovascular: Denies chest pain or palpitations Respiratory/Chest Respiratory/Chest: Reports cough; Denies dyspnea or dyspnea on exertion Gastrointestinal Gastrointestinal: Reports diarrhea; Denies abdominal pain or nausea Genitourinary Genitourinary ED: Denies dysuria or hematuria Musculoskeletal Musculoskeletal: Denies arthralgias or neck pain Integumentary Denies abscess Neurologic Neurologic: Denies headache(s) Psychiatric Psychiatric: Denies anxiety or depression EXAM Physical Exam Const Vital Signs: 03/28/22 15:17 Temperature 98.9 F Temperature Source Temporal Pulse Rate 62 Respiratory Rate 18 Blood Pressure 176/70 H Blood Pressure Mean 105 Pulse Ox 98 Oxygen Delivery Method Room Air Positive well nourished General Appearance ED: NAD; Negative for pallor HEENT Reports moist mucous membranes normocephalic and atraumatic Face and Sinus: normal facial exam Nose: external nose normal, nares normal and mucous membranes and turbinates abnormal Positive for boggy External Ear: external ears normal and mastoids normal Tympanic Membrane ED: Yes TM abnormal bulging, erythematous and loss of landmarks Mouth ED: Yes oral and palatal mucosa normal, Yes lips normal, Yes tongue normal and Yes salivary gland normal Mouth: oral and palatal mucosa normal, lips normal, tongue normal and salivary gland normal Throat: posterior oropharynx normal Eyes PERRL and EOMs intact bilaterally General Eye ED: Negative for pale conjunctiva or scleral icterus Chest Wall inspection of chest normal Resp normal respiratory effort and clear to auscultation bilaterally Cardio regular rate and regular rhythm GI normal to inspection, nondistended, normoactive bowel sounds Psych mental status grossly normal Skin no rashes or lesions noted General Skin Exam: Negative for jaundice or pallor MDM MDM MDM Narrative Medical decision making narrative: Patient presenting with nasal drainage, sore throat, bilateral ear pain. She states the right hurts more than the left however on examination her left ear is more convincing for an otitis media. Patient will be started on Augmentin which will cover for both ears. She is already taken [id number] cough cold medicine. No believe she needs any testing for viral sources as it has been almost a week and I would wait a treatment. Her lungs are clear to auscultation. Her vital signs are normal. Patient does request Diflucan because she gets yeast infections if she takes antibiotics. She was given 2 doses of this for home. Follow-up with PCP and return for any worsening symptoms. Impression: 1. Otitis media 2. Pharyngitis Lab Data Attestation: I reviewed the patient's lab results. Discharge Plan Triage Chief Complaint: General Illness Other Complaint: Cold Sx ED Provider: Jozef Brar Dx/Rx/DC Orders Instructions: ED Otitis Media Antibiotic ... Prescriptions: New amoxicillin-pot clavulanate 875-125 mg tablet 1 tab PO BID Qty: 20 0RF fluconazole [Diflucan] 150 mg tablet 150 mg PO DAILY 2 Days Qty: 2 0RF Rx Instructions: administer on day 1 of therapy No Action nitroglycerin [Nitrostat] 0.4 mg tablet, sublingual 0.4 mg sublingual Q5-15M PRN (Reason: chest pain) Qty: 25 3RF Rx Instructions: do not exceed 3 doses per episode sucralfate [Carafate] 1 gram tablet 1 g PO BID hydrochlorothiazide 25 mg tablet 25 mg PO DAILY losartan 50 mg tablet 50 mg PO DAILY Qty: 1 0RF (DME) FreeStyle Marilyn 14 Day Sensor Kit See Rx Instructions .ROUTE .MEDSUPPLY Qty: 2 6RF Rx Instructions: As directed Ozempic 1 mg/dose (4 mg/3 mL) pen injector 1 mg subcut QWEEK Qty: 3 5RF (DME) pen needle, diabetic [BD Ultra-Fine Sophia Pen Needle] 32 gauge x 5/32 needle See Rx Instructions .Route Qty: 100 5RF Rx Instructions: TID insulin glargine [Lantus Solostar U-100 Insulin] 100 unit/mL (3 mL) insulin pen 30 unit subcut DAILY Qty: 27 3RF colestipol 1 gram Tablet 1 g PO DAILY levothyroxine 112 mcg tablet 112 mcg PO MOTUWETHFR gabapentin 600 mg Tablet 900 mg PO BID trazodone 50 mg tablet 75 mg PO QHS (DME) blood-glucose meter [OneTouch Verio Flex Start] Kit See Rx Instructions .ROUTE .MEDSUPPLY Qty: 1 0RF Rx Instructions: Twice daily and as needed (DME) OneTouch Verio test strips Strip See Rx Instructions .ROUTE .MEDSUPPLY Qty: 300 3RF Rx Instructions: Check 3 times a day and as needed (DME) lancets [OneTouch UltraSoft Lancets] Misc See Rx Instructions .ROUTE .MEDSUPPLY Qty: 300 3RF Rx Instructions: Check 3 times a day and as needed allopurinol 100 mg tablet 100 mg PO QHS Qty: 90 3RF Eliquis 5 mg tablet 5 mg PO BID Qty: 180 3RF Hold Instructions: [facility]; hold 02/12 atorvastatin 80 mg tablet 80 mg PO QHS Qty: 90 1RF Rx Instructions: cholesterol carvedilol 6.25 mg tablet 6.25 mg PO BID Qty: 180 4RF Rx Instructions: must administer with a meal/food divalproex 125 mg capsule, delayed rel sprinkle 125 mg PO BID Qty: 180 3RF pantoprazole 40 mg tablet,delayed release (DR/EC) 40 mg PO DAILY Qty: 90 3RF ticagrelor 90 mg tablet 90 mg PO BID Qty: 180 3RF Hold Instructions: 04/15/2020: SOB (DME) pen needle, diabetic [Lite Touch Insulin Pen [place]] 31 gauge x 5/16 needle See Rx Instructions .ROUTE .MEDSUPPLY Qty: 100 4RF Rx Instructions: As directed albuterol sulfate 90 mcg/actuation HFA aerosol inhaler 2 puff INHALATION Q6H PRN (Reason: Wheezing) Qty: 8.5 6RF insulin lispro [Humalog KwikPen Insulin] 100 unit/mL insulin pen 5 unit subcut TID Qty: 15 5RF escitalopram oxalate [Lexapro] 10 mg tablet 10 mg PO DAILY Qty: 90 3RF nystatin [Nyamyc] 100,000 unit/gram powder 1 applic topical BID PRN (Reason: skin infection) Qty: 30 1RF Primary Care Provider: Pat Bennett Referrals: Pat Bennett MD [Primary Care Provider] -
[2022-03-28] MEDS: Amox/Clavulanate 875 MG Tablet PO (15:40)
== END 2022-03-28 15:46 | disposition home or self-care (01) ==
PROVIDERS: Emergency Provider Student in an Organized Health Care Education/Training Program; PCP Internal Medicine; Visit Provider Student in an Organized Health Care Education/Training Program
DX: J02.9 Acute pharyngitis, unspecified (principal); E11.42 Type 2 diabetes mellitus with diabetic polyneuropathy; E11.22 Type 2 diabetes mellitus with diabetic chronic kidney disease; I25.10 Atherosclerotic heart disease of native coronary artery without angina pectoris; H66.93 Otitis media, unspecified, bilateral; I12.9 Hypertensive chronic kidney disease with stage 1 through stage 4 chronic kidney disease, or unspecified chronic kidney disease; N18.9 Chronic kidney disease, unspecified
CPT/HCPCS: 99283

== ENCOUNTER → 2022-04-20 | Outpatient (CLI) | payer MEDICARE, SELFPAY ==
[2020-06-04 12:24] VITALS: BMI 26.4
[2022-04-20 13:43] LABS: Protein, Urine (Random) 11.9 mg/dL (<11.9); Protein:Creat Ratio 188 mg/g CRE (0-200)
[2022-04-20 13:58] LABS: Albumin, Serum 3.7 g/dL (3.2-5.0); BUN 21 mg/dL (7-18); BUN/Creat Ratio 18.1 RATIO (10-20); Chloride 100 mmol/L (98-107); Creatinine, Serum 1.16 mg/dL (0.55-1.02); EST Glomerular Filtration Rate 50 mL/min (>60); Est Glom Filt Rate - Afr Amer 60 mL/min (>60); Glucose 153 mg/dL (74-106); Phosphorus 3.5 mg/dL (2.5-4.9); Potassium 3.9 mmol/L (3.5-5.1); Sodium Level 136 mmol/L (136-145)
== END | disposition home or self-care (01) ==
LOC: POLAB3 10:09
PROVIDERS: PCP Internal Medicine; Visit Provider Internal Medicine Nephrology
DX: N18.2 Chronic kidney disease, stage 2 (mild) (principal); N17.9 Acute kidney failure, unspecified
CPT/HCPCS: 36415; 80069; 82570; 84156

== ENCOUNTER 2022-07-20 12:49 | Emergency (ER) | payer MEDICARE, MEDICAID, SELFPAY ==
[2020-06-04 12:24] VITALS: BMI 26.4
[2022-07-20 12:50] VITALS: BP 191/78; PULSE 57; RESP 18; TEMP 36.6; O2SAT 97; BMI 26.4
--- NOTE | 2022-07-20 14:08 | CT_ITS ---
STUDY: CT BRAIN WITHOUT CONTRAST REASON FOR EXAM: Female, 67 years old. Headache, anticoagulated, HTN RADIATION DOSAGE (If Supplied By Facility): CTDIvol = ( 44.99 ) mGy, DLP = ( 779.24 ) mGycm TECHNIQUE: Transaxial CT imaging of the brain was performed without administration of intravenous contrast material. Individualized dose optimization techniques were used for this CT. COMPARISON: Comparison is made with prior study dated 03/04/2020. FINDINGS: Normal soft tissue structures. Normal calvarium. Normal size ventricles and extra-axial spaces for the patient''s age. Normal white matter tracts of the cerebral hemispheres. Normal basal ganglia and thalami. Normal brainstem. Normal cerebellum. There is no intracranial hemorrhage. There are no findings of an acute ischemic infarction. Atherosclerotic calcification of the cavernous portions of the internal carotid arteries bilaterally. Mild mucosal thickening of the maxillary sinuses bilaterally more prominent on the left side. CT/Brain/Head without Contrast IMPRESSION: Normal unenhanced CT scan of the brain. Electronically Signed: Lloyd Evans MD at 15:05 EST ,
--- NOTE | 2022-07-20 14:09 | EKG12_ITS ---
Test Reason : A FIB Blood Pressure : / mmHG Vent. Rate : 059 BPM Atrial Rate : 059 BPM P-R Int : 154 ms QRS Dur : 092 ms QT Int : 436 ms P-R-T Axes : 071 -68 -31 degrees QTc Int : 431 ms Sinus bradycardia with Premature atrial complexes with Aberrant conduction Left axis deviation Incomplete right bundle branch block ST & T wave abnormality, consider anterolateral ischemia Abnormal ECG Confirmed by SHAILA LOPEZ, YENI ([id number]), editorial intern AZAEL THORNE ([id number]) on 07/25/2022 9:34:58 AM Referred By: HEIKE Confirmed By:ALEXANDRA LINTON MD
--- NOTE | 2022-07-20 14:09 | EX.ED.VIS.EY ---
HPI History of Present Illness Chief Complaint: Eye Problem Informant: patient Onset/Context/Timing Location: Left Eye Onset: Yesterday (Noticed yesterday) Associated Symptoms Associated Symptoms - Eyes: Photophobia and - (No vision changes) History of injury: No Visual correction: None Narrative Narrative: Woke up abruptly with a headache about 2 weeks ago. It has been fairly significant, waxing and waning and at times going away for the past 2 weeks. She states someone was doing an insurance exam on her at her home yesterday and noticed that she had some bloody redness and part of her left eye. She has had no bleeding coming out of her eye. She has had no vision changes. She presents for these issues. She has had some photophobia and some nausea but no vomiting or focal neurologic deficits peripherally. She is anticoagulated on Eliquis, she is on Brilinta as well, For A-fib and coronary stents, respectively. [facility] Medical History Acute kidney injury superimposed on chronic kidney disease Atherosclerotic heart disease of [place] coronary artery without angina pectoris Atrial fibrillation Bipolar disorder Chest congestion Chronic pancreatic insufficiency Dehydration Depression Diabetes Essential hypertension Fibromyalgia affecting multiple sites Generalized OA Hip pain, bilateral Hypertension Hypomagnesemia Hypotension Near syncope Overweight (BMI 25.0-29.9) Polyneuropathy due to type 2 diabetes mellitus Pre-op evaluation Shoulder pain, bilateral Tachybradycardia syndrome 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 GFR 30-59 Home Medications blood-glucose meter (OneTouch Verio Flex Start kit) #1 ea 11/11/20 [Rx Last Taken Unknown] blood sugar diagnostic (OneTouch Verio test strips) #300 ea 11/12/20 [Rx Last Taken Unknown] lancets (OneTouch UltraSoft Lancets) #300 ea 11/12/20 [Rx Last Taken Unknown] nitroglycerin 0.4 mg sublingual tablet (Nitrostat) 0.4 mg sublingual Q5-15M PRN chest pain #25 tabs 01/11/21 [Rx Last Taken Unknown] flash glucose sensor (FreeStyle Marilyn 14 Day Sensor kit) #2 ea 07/26/21 [Rx Last Taken Unknown] allopurinol 100 mg tablet 100 mg PO QHS gout #90 tabs 10/27/21 [Rx Last Taken 11/06/21] apixaban 5 mg tablet (Eliquis) 5 mg PO BID #180 tabs 10/27/21 [Rx Last Taken 11/06/21] carvedilol 6.25 mg tablet 6.25 mg PO BID #180 tabs 10/27/21 [Rx Last Taken 11/06/21] pantoprazole 40 mg tablet,delayed release 40 mg PO DAILY gerd #90 tabs 10/27/21 [Rx Last Taken 11/06/21] colestipol 1 gram tablet 1 g PO DAILY cholesterol 11/07/21 [History Last Taken 11/06/21] pen needle, diabetic 31 gauge x 5/16 (Lite Touch Insulin Pen [place]) #100 ea 11/10/21 [Rx Last Taken Unknown] albuterol sulfate 90 mcg/actuation aerosol inhaler 2 puff inhalation Q6H PRN Wheezing #8.5 grams 12/20/21 [Rx Last Taken Unknown] losartan 50 mg tablet 50 mg PO DAILY #1 TAB 01/14/22 [Rx Last Taken Unknown] sucralfate 1 gram tablet (Carafate) 1 g PO BID 01/14/22 [History Last Taken Unknown] pen needle, diabetic 32 gauge x 5/32 (BD Ultra-Fine Sophia Pen Needle) #100 ea 02/07/22 [Rx Last Taken Unknown] insulin glargine 100 unit/mL (3 mL) subcutaneous pen (Lantus Solostar U-100 Insulin) 30 unit (0.3 mL) subcut DAILY #27 mL 02/09/22 [Rx Last Taken Unknown] Humalog KwikPen Insulin 100 unit/mL subcutaneous (insulin lispro) 5 unit (0.05 mL) subcut TID #15 mL 02/21/22 [Rx Last Taken Unknown] escitalopram oxalate 10 mg tablet (Lexapro) 10 mg PO DAILY #90 tabs 03/09/22 [Rx Last Taken Unknown] nystatin 100,000 unit/gram topical powder (Nyamyc) 1 applic topical BID PRN skin infection #30 grams 03/09/22 [Rx Last Taken Unknown] fluconazole 150 mg tablet (Diflucan) 150 mg PO DAILY 2 days #2 tabs 03/28/22 [Rx Last Taken Unknown] atorvastatin 80 mg tablet 80 mg PO QHS #90 tabs 05/18/22 [Rx Last Taken Unknown] divalproex 125 mg capsule,delayed release sprinkle 125 mg PO BID bipolar #180 caps 05/18/22 [Rx Last Taken Unknown] gabapentin 600 mg tablet 900 mg PO BID neuropathy #180 tabs 05/18/22 [Rx Last Taken Unknown] levothyroxine 112 mcg tablet 112 mcg PO MOTUWETHFR thyroid #90 tabs 05/18/22 [Rx Last Taken Unknown] semaglutide 1 mg/dose (4 mg/3 mL) subcutaneous pen injector (Ozempic) 1 mg (0.75 mL) subcut QWEEK #3 mL 05/18/22 [Rx Last Taken Unknown] ticagrelor 90 mg tablet 90 mg PO BID #180 tabs 05/18/22 [Rx Last Taken Unknown] trazodone 50 mg tablet 50 mg PO QHS PRN sleep #90 tabs 05/18/22 [Rx Last Taken Unknown] metoclopramide HCl 10 mg tablet 10 mg PO Q12H PRN PRN nausea or headache #12 tabs 07/20/22 [Rx Last Taken Unknown] Allergy/AdvReac Type Severity Reaction Status Date / Time duloxetine [From Cymbalta] Allergy Itching Verified 07/20/22 12:53 tomato Allergy Itching Verified 07/20/22 12:53 adhesive tape [plastic tape] AdvReac Rash Verified 07/20/22 12:53 isosorbide AdvReac Intermediate Headache Uncoded 07/20/22 12:53 and chest pain Family History Sister COPD (chronic obstructive pulmonary disease) Mother COPD (chronic obstructive pulmonary disease) Hypertension Alzheimer's dementia without behavioral disturbance Alzheimer's dementia Father Diabetes Hypertension Myocardial infarction Surgical History History of laparoscopic appendectomy History of total abdominal hysterectomy Hx of cholecystectomy Hx of shoulder surgery Presence of stent in coronary artery (~09/06/21) Social History Smoking Status: Current every day smoker tobacco type: cigarettes alcohol intake: never substance use type: does not use caffeine: No what type of physical activity do you participate in: none EXAM Physical Exam Const Vital Signs: 07/20/22 12:50 Temperature 97.9 F Temperature Source Temporal Pulse Rate 57 L Respiratory Rate 18 Blood Pressure 191/78 H Blood Pressure Mean 115 Pulse Ox 97 Oxygen Delivery Method Room Air MDM MDM MDM Narrative Medical decision making narrative: CT of the head was obtained, images are unremarkable, no hemorrhage reviewed and immediately. Radiology in agreement. I agree with this interpretation. At this time labs unremarkable, without treating her blood pressure, it went down to 148/62. We will certainly concerned that the patient could have had an intracerebral hemorrhage with her blood pressure in the 190s and anticoagulated. Likely this is not the case. She was given Reglan, she did not want to wait until after and be observed, she wanted to go home. Close outpatient follow-up advised mainly because of her blood pressure and a persistent headache. We discussed the possibility of giving her Decadron to see if that would keep her from getting recurrent headache since this sounds like a migraine in context of her head scan being negative, however she is a diabetic and she has had hyperglycemia with prednisone in the past and I do not think that was a good idea she was in agreement. I gave her a prescription for Reglan in the meantime, but she needs to get her blood pressure rechecked since this may be contributing to her headaches. Rhythm Strip Rhythm Strip: Sinus Rhythm Rate: 60 Ectopy: PVC(s) EKG Initial EKG: Attestation: I personally reviewed and interpreted this EKG as follows: Interpretation: Sinus Rhythm and Non-Specific ST Changes Discharge Plan Triage Chief Complaint: Eye Problem ED Provider: Robby Kirkpatrick Dx/Rx/DC Orders Clinical Impression: Headache, migraine, Episode of hypertension, Anticoagulated, Subconjunctival hemorrhage of left eye Instructions: ED, Migraine (Classical), ED Subconjunctival Hemorrhage Prescriptions: New metoclopramide HCl [metoclopramide HCl] 10 mg tablet 10 mg PO Q12H PRN PRN (Reason: nausea or headache) Qty: 12 0RF No Action nitroglycerin [Nitrostat] 0.4 mg tablet, sublingual 0.4 mg sublingual Q5-15M PRN (Reason: chest pain) Qty: 25 3RF Rx Instructions: do not exceed 3 doses per episode sucralfate [Carafate] 1 gram tablet 1 g PO BID losartan 50 mg tablet 50 mg PO DAILY Qty: 1 0RF (DME) [facility] Marilyn 14 Day Sensor Kit See Rx Instructions .ROUTE .MEDSUPPLY Qty: 2 6RF Rx Instructions: As directed (DME) pen needle, diabetic [BD Ultra-Fine Sophia Pen Needle] 32 gauge x 5/32 needle See Rx Instructions .Route Qty: 100 5RF Rx Instructions: TID insulin glargine [Lantus Solostar U-100 Insulin] 100 unit/mL (3 mL) insulin pen 30 unit subcut DAILY Qty: 27 3RF colestipol 1 gram Tablet 1 g PO DAILY fluconazole [Diflucan] 150 mg tablet 150 mg PO DAILY 2 Days Qty: 2 0RF Rx Instructions: administer on day 1 of therapy (DME) blood-glucose meter [OneTouch Verio Flex Start] Kit See Rx Instructions .ROUTE .MEDSUPPLY Qty: 1 0RF Rx Instructions: Twice daily and as needed (DME) OneTouch Verio test strips Strip See Rx Instructions .ROUTE .MEDSUPPLY Qty: 300 3RF Rx Instructions: Check 3 times a day and as needed (DME) lancets [OneTouch UltraSoft Lancets] Misc See Rx Instructions .ROUTE .MEDSUPPLY Qty: 300 3RF Rx Instructions: Check 3 times a day and as needed allopurinol 100 mg tablet 100 mg PO QHS Qty: 90 3RF Eliquis 5 mg tablet 5 mg PO BID Qty: 180 3RF Hold Instructions: [facility]; hold 02/12 carvedilol 6.25 mg tablet 6.25 mg PO BID Qty: 180 4RF Rx Instructions: must administer with a meal/food pantoprazole 40 mg tablet,delayed release (DR/EC) 40 mg PO DAILY Qty: 90 3RF (DME) pen needle, diabetic [Lite Touch Insulin Pen [place]] 31 gauge x 5/16 needle See Rx Instructions .ROUTE .MEDSUPPLY Qty: 100 4RF Rx Instructions: As directed albuterol sulfate 90 mcg/actuation HFA aerosol inhaler 2 puff INHALATION Q6H PRN (Reason: Wheezing) Qty: 8.5 6RF insulin lispro [Humalog KwikPen Insulin] 100 unit/mL insulin pen 5 unit subcut TID Qty: 15 5RF escitalopram oxalate [Lexapro] 10 mg tablet 10 mg PO DAILY Qty: 90 3RF nystatin [Nyamyc] 100,000 unit/gram powder 1 applic topical BID PRN (Reason: skin infection) Qty: 30 1RF Ozempic 1 mg/dose (4 mg/3 mL) pen injector 1 mg subcut QWEEK Qty: 3 5RF atorvastatin 80 mg tablet 80 mg PO QHS Qty: 90 3RF Rx Instructions: cholesterol divalproex 125 mg capsule, delayed rel sprinkle 125 mg PO BID Qty: 180 3RF gabapentin 600 mg tablet 900 mg PO BID Qty: 180 3RF levothyroxine 112 mcg tablet 112 mcg PO MOTUWETHFR Qty: 90 3RF ticagrelor 90 mg tablet 90 mg PO BID Qty: 180 3RF Hold Instructions: 04/15/2020: SOB trazodone 50 mg tablet 50 mg PO QHS PRN (Reason: sleep) Qty: 90 1RF Primary Care Provider: Pat Bennett Referrals: Pat Bennett MD [Primary Care Provider] - 3-5 Days if not improving Disposition Disposition: Home, Self Care
[2022-07-20 14:24] VITALS: BP 182/83; PULSE 59; RESP 16; O2SAT 98
[2022-07-20 14:47] LABS: Anion Gap 10 (5-15); BUN 22 mg/dL (7-18); BUN/Creat Ratio 17.6 RATIO (10-20); Calcium,Total 9.3 mg/dL (8.5-10.1); Chloride 98 mmol/L (98-107); Creatinine, Serum 1.25 mg/dL (0.55-1.02); EST Glomerular Filtration Rate 46 mL/min (>60); Est Glom Filt Rate - Afr Amer 55 mL/min (>60); Estimated Creatinine Clearance 41.53 ml/min; Glucose 136 mg/dL (74-106); Potassium 4.3 mmol/L (3.5-5.1); Sodium Level 135 mmol/L (136-145)
[2022-07-20 15:10] VITALS: BP 149/59; PULSE 59; RESP 16; O2SAT 98
[2022-07-20 16:12] LABS: Absolute Lymphocyte Count 2.19 X10^3/uL (0.83-4.51); Absolute Neutrophil Count 6.4 X10^3/uL (2.0-7.7); Basophil# 0.07 X10^3/uL; Basophil% 0.7 % (0-1); Eosinophil# 0.17 X10^3/uL; Eosinophils% 1.8 % (0-5); Hematocrit 36.3 % (37-47); Hemoglobin 12.2 g/dL (12.0-15.0); Lymphocyte # 2.19 X10^3/ul (0.83-4.51); Lymphocyte % 22.9 % (19-41); Mean Corp Hgb Conc 33.6 g/dL (32-36); Mean Corpuscular Hgb 30.4 pg (27.0-32.0); Mean Corpuscular Volume 90.5 fL (81-99); Mean Platelet Vol. 9.5 fl (6.2-12.0); Monocyte# 0.73 X10^3/uL; Monocyte% 7.6 % (0-10); NRBC Flagged by Analyzer 0 % (0-5); Neutrophil # 6.35 X10^3/uL (2.7-7.7); Neutrophil % 66.3 % (47-70); Platelet Count 390 K/mm3 (150-450); RBC Distribution Width SD 49.1 fl (35.1-43.9); Red Blood Count 4.01 M/mm3 (4.2-5.4); White Blood Count 9.6 K/mm3 (4.4-11.0)
[2022-07-20] MEDS: Metoclopramide 10 MG/2 ML Vial 5 MG IV (16:17)
[2022-07-20 16:29] VITALS: BP 148/62; PULSE 60; RESP 16; O2SAT 96
== END 2022-07-20 16:45 | disposition home or self-care (01) ==
PROVIDERS: Emergency Provider Emergency Medicine; PCP Internal Medicine; Visit Provider Emergency Medicine
DX: H11.32 Conjunctival hemorrhage, left eye (principal); E11.42 Type 2 diabetes mellitus with diabetic polyneuropathy; E11.22 Type 2 diabetes mellitus with diabetic chronic kidney disease; I48.91 Unspecified atrial fibrillation; N18.30 Chronic kidney disease, stage 3 unspecified; G43.909 Migraine, unspecified, not intractable, without status migrainosus; I25.10 Atherosclerotic heart disease of native coronary artery without angina pectoris; Z95.5 Presence of coronary angioplasty implant and graft; I12.9 Hypertensive chronic kidney disease with stage 1 through stage 4 chronic kidney disease, or unspecified chronic kidney disease; F17.210 Nicotine dependence, cigarettes, uncomplicated; Z79.01 Long term (current) use of anticoagulants
CPT/HCPCS: 70450; 80048; 85025; 93005; 96374; 99284; A4216

== ENCOUNTER 2022-08-04 16:51 | Inpatient (IN) | payer MEDICARE, MEDICAID, SELFPAY ==
[2020-06-04 12:24] VITALS: BMI 26.4
[2022-08-04 16:52] VITALS: BP 166/76; PULSE 65; RESP 18; TEMP 36.7; O2SAT 96; BMI 28.1
--- NOTE | 2022-08-04 17:20 | CT_ITS ---
STUDY: CT Abdomen And Pelvis W/ Contrast Injection 08/04/2022 7:13 PM REASON FOR EXAM: Female, 67 years old. Abdominal pain lower abd pain Individualized dose optimization techniques were used for this CT. COMPARISON: 11.16.21. TECHNIQUE: CT Abdomen And Pelvis W/ Contrast Injection IV 100mL Isovue-300 FINDINGS: There are atherosclerotic calcifications of visualized coronary arteries. The visualized portions of the heart are within normal limits. Left lower lobe calcified granuloma. Normal liver. There are surgical clips in the gallbladder fossa consistent with a prior cholecystectomy. Normal spleen. Normal pancreas. Normal bilateral adrenal glands. There are hypodensities in the right kidney. These are consistent for cysts. No follow up required. No acute findings of the left kidney. Normal visualized stomach. There is a fluid filled small bowel with air fluid levels. This suggests an ileus of the small intestine with mild gaseous distention. There are multiple colonic diverticula consistent with diverticulosis. There is non-visualization of the appendix. There are calcifications of the abdominal aorta. This is consistent for atherosclerotic disease. There is NO abdominal aortic aneurysm. Vascular workup can be obtained based on clinical correlation. Normal inferior vena cava. Subcentimeter mesenteric lymph nodes. Normal urinary bladder. There is absence of the uterus consistent with a prior hysterectomy. Normal abdominal wall. There are diffuse degenerative changes of the visualized lumbar spine. CT/Abdomen/Pelvis W IV Cont ONLY IMPRESSION: (NOT LISTED IN ORDER OF SIGNIFICANCE) There is a possible ileus of the small bowel. There is no transition point noted. There is gradual normal tapering of the small bowel to a normal diameter at the level of the terminal ileum. Surveillance may be warranted. Other findings as above. Electronically Signed: Nabeel Andersen MD at 19:18 EDT ,
--- NOTE | 2022-08-04 17:23 | EX.ED.DYSGE1 ---
HPI History of Present Illness Chief Complaint: General Illness Informant: patient Onset/Context/Timing Onset: Today Context: Gradual Onset Timing: Continuous Current Severity: Mild Maximum Severity: Mild Narrative Narrative: 67-year-old female extensive past medical history hypertension, diabetes, A-fib on Eliquis. History of CAD with 5 cardiac stents. Chronic kidney disease. States last night and today has had nausea vomiting diarrhea and a nonproductive cough. No chills highest temperature was 99. No dysuria. Lower abdominal discomfort. Clear sputum. No recent hospitalization. Prior similar symptoms: Yes Recent Illness/Hospitalization: No PFSH PFSH Medical History Acute kidney injury superimposed on chronic kidney disease Atherosclerotic heart disease of [place] coronary artery without angina pectoris Atrial fibrillation Bipolar disorder Chest congestion Chronic pancreatic insufficiency Dehydration Depression Diabetes Essential hypertension Fibromyalgia affecting multiple sites Generalized OA Hip pain, bilateral Hypertension Hypomagnesemia Hypotension Near syncope Overweight (BMI 25.0-29.9) Polyneuropathy due to type 2 diabetes mellitus Pre-op evaluation Shoulder pain, bilateral Tachybradycardia syndrome 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 GFR 30-59 Home Medications blood-glucose meter (Digital Reef Verio Flex Start kit) #1 ea 11/11/20 [Rx Last Taken Unknown] blood sugar diagnostic (American GiantTouch Verio test strips) #300 ea 11/12/20 [Rx Last Taken Unknown] lancets (American GiantTouch UltraSoft Lancets) #300 ea 11/12/20 [Rx Last Taken Unknown] nitroglycerin 0.4 mg sublingual tablet (Nitrostat) 0.4 mg sublingual Q5-15M PRN chest pain #25 tabs 01/11/21 [Rx Last Taken Unknown] flash glucose sensor (FreeStyle Marilyn 14 Day Sensor kit) #2 ea 07/26/21 [Rx Last Taken Unknown] allopurinol 100 mg tablet 100 mg PO QHS gout #90 tabs 10/27/21 [Rx Last Taken 11/06/21] apixaban 5 mg tablet (Eliquis) 5 mg PO BID #180 tabs 10/27/21 [Rx Last Taken 11/06/21] carvedilol 6.25 mg tablet 6.25 mg PO BID #180 tabs 10/27/21 [Rx Last Taken 11/06/21] pantoprazole 40 mg tablet,delayed release 40 mg PO DAILY gerd #90 tabs 10/27/21 [Rx Last Taken 11/06/21] colestipol 1 gram tablet 1 g PO DAILY cholesterol 11/07/21 [History Last Taken 11/06/21] pen needle, diabetic 31 gauge x 5/16 (Lite Touch Insulin Pen Westley) #100 ea 11/10/21 [Rx Last Taken Unknown] albuterol sulfate 90 mcg/actuation aerosol inhaler 2 puff inhalation Q6H PRN Wheezing #8.5 grams 12/20/21 [Rx Last Taken Unknown] losartan 50 mg tablet 50 mg PO DAILY #1 TAB 01/14/22 [Rx Last Taken Unknown] sucralfate 1 gram tablet (Carafate) 1 g PO BID 01/14/22 [History Last Taken Unknown] pen needle, diabetic 32 gauge x 5/32 (BD Ultra-Fine Sophia Pen Needle) #100 ea 02/07/22 [Rx Last Taken Unknown] insulin glargine 100 unit/mL (3 mL) subcutaneous pen (Lantus Solostar U-100 Insulin) 30 unit (0.3 mL) subcut DAILY #27 mL 02/09/22 [Rx Last Taken Unknown] Humalog KwikPen Insulin 100 unit/mL subcutaneous (insulin lispro) 5 unit (0.05 mL) subcut TID #15 mL 02/21/22 [Rx Last Taken Unknown] escitalopram oxalate 10 mg tablet (Lexapro) 10 mg PO DAILY #90 tabs 03/09/22 [Rx Last Taken Unknown] nystatin 100,000 unit/gram topical powder (Nyamyc) 1 applic topical BID PRN skin infection #30 grams 03/09/22 [Rx Last Taken Unknown] fluconazole 150 mg tablet (Diflucan) 150 mg PO DAILY 2 days #2 tabs 03/28/22 [Rx Last Taken Unknown] atorvastatin 80 mg tablet 80 mg PO QHS #90 tabs 05/18/22 [Rx Last Taken Unknown] divalproex 125 mg capsule,delayed release sprinkle 125 mg PO BID bipolar #180 caps 05/18/22 [Rx Last Taken Unknown] gabapentin 600 mg tablet 900 mg PO BID neuropathy #180 tabs 05/18/22 [Rx Last Taken Unknown] levothyroxine 112 mcg tablet 112 mcg PO MOTUWETHFR thyroid #90 tabs 05/18/22 [Rx Last Taken Unknown] semaglutide 1 mg/dose (4 mg/3 mL) subcutaneous pen injector (Ozempic) 1 mg (0.75 mL) subcut QWEEK #3 mL 05/18/22 [Rx Last Taken Unknown] ticagrelor 90 mg tablet 90 mg PO BID #180 tabs 05/18/22 [Rx Last Taken Unknown] trazodone 50 mg tablet 50 mg PO QHS PRN sleep #90 tabs 05/18/22 [Rx Last Taken Unknown] metoclopramide HCl 10 mg tablet 10 mg PO Q12H PRN PRN nausea or headache #12 tabs 07/20/22 [Rx Last Taken Unknown] Allergy/AdvReac Type Severity Reaction Status Date / Time duloxetine [From Cymbalta] Allergy Itching Verified 07/20/22 12:53 tomato Allergy Itching Verified 07/20/22 12:53 adhesive tape [plastic tape] AdvReac Rash Verified 07/20/22 12:53 isosorbide AdvReac Intermediate Headache Uncoded 07/20/22 12:53 and chest pain Family History Sister COPD (chronic obstructive pulmonary disease) Mother COPD (chronic obstructive pulmonary disease) Hypertension Alzheimer's dementia without behavioral disturbance Alzheimer's dementia Father Diabetes Hypertension Myocardial infarction Surgical History History of laparoscopic appendectomy History of total abdominal hysterectomy Hx of cholecystectomy Hx of shoulder surgery Presence of stent in coronary artery (~09/06/21) Social History Smoking Status: Current every day smoker tobacco type: cigarettes alcohol intake: never substance use type: does not use caffeine: No what type of physical activity do you participate in: none ROS ROS ED ROS Narrative Nausea, vomiting, diarrhea with lower abdominal pain. Cough. Review of Systems ROS Unobtainable: Denies due to encephalopathy Constitutional Constitutional ED: Reports fever(s) and subjective Eyes Eyes: Denies blurry vision ENT ENT ED: Denies ear pain, rhinorrhea or sore throat Cardiovascular Cardiovascular: Denies chest pain Respiratory/Chest Respiratory/Chest: Reports cough Gastrointestinal Gastrointestinal: Reports abdominal pain, diarrhea, nausea and vomiting; Denies constipation or melena Genitourinary Genitourinary ED: Denies dysuria or hematuria Musculoskeletal Musculoskeletal: Denies arthralgias Integumentary Denies abscess Neurologic Neurologic: Denies headache(s) Psychiatric Psychiatric: Denies anxiety Endocrine Endocrinology: Denies cold intolerance Hematologic/Lymphatic Hematologic/Lymphatic: Reports none Allergic/Immunologic Allergic/Immunologic ED: Denies mouth swelling, tongue swelling or urticaria EXAM Physical Exam Narrative Exam Narrative: 61-year-old female no acute distress. Vital signs stable afebrile. Pulse ox 96% on room air no hypoxia. H EENT exam unremarkable. Neck nontender no lymphadenopathy. No JVD. Lungs clear to auscultation bilaterally. Heart regular rhythm rate about 65 no murmur. Chest wall nontender. Abdomen soft, nondistended normal bowel sounds no peritoneal signs. Suprapubic tenderness. No signs of obstruction. Right upper right lower quadrant unremarkable. Back nontender. Moving all 4 extremities. Nontender no edema. Neurologically awake and alert with no focal motor deficits. Const Vital Signs: 08/04/22 16:52 08/04/22 16:59 08/04/22 19:08 Temperature 98.0 F 98.1 F Temperature Source Oral Temporal Pulse Rate 65 76 Respiratory Rate 18 18 Respiratory Effort Normal Non-Labored Respiratory Pattern Normal Blood Pressure 166/76 H 164/62 H Blood Pressure Mean 106 96 Pulse Ox 96 97 Oxygen Delivery Method Room Air Room Air Positive well nourished and well developed; Negative for obese, cachectic, contractures or unkempt General Appearance ED: well developed and NAD; Negative for unkempt, cachectic, contractures, cyanotic, diaphoretic or pallor Nutritional Appearance: Negative for cachectic or obese HEENT Reports moist mucous membranes; Denies dry mucous membranes Negative for trauma or tenderness Mouth ED: No dry mucous membranes Mouth: No dry mucous membranes Eyes EOMs intact bilaterally General Eye ED: Negative for pale conjunctiva or scleral icterus Neck no lymphadenopathy, supple and no JVD General: Negative for tenderness Lymph Lymphatic: Negative for other Chest Wall inspection of chest normal and palpation of chest normal Chest: Negative for other Resp normal respiratory effort and clear to auscultation bilaterally Effort and Inspection: Negative for retractions Auscultation: Negative for rales, rhonchi or wheezes Cardio regular rate, regular rhythm, S1 normal heart sound, S2 normal heart sound and no murmurs Rhythm: Negative for abnormal rhythm GI normal to inspection, nondistended, normoactive bowel sounds, non-distended and no masses; Negative for non-tender GI Narrative: Suprapubic tenderness. No peritoneal signs. No right upper or right lower quadrant tenderness no pulsatile mass. Inspection: Negative for abdominal distention Auscultation: normoactive bowel sounds Palpation: soft and tender Bladder / Kidney Exam: No other Back/Spine General Back: Negative for CVA tenderness Cervical Spine: Negative for cervical spine tenderness Thoracic Spine / Upper Back: Negative for thoracic spinal tenderness Lumbar Spine / Lower Back: Negative for lumbar spinal tenderness Extremity General Extremety ED: Negative for edema or tenderness General Extremity: Negative for edema Neuro oriented x3 Sensorium / Orientation: alert; Negative for orientation impaired, lethargic or stuporous Motor Exam: strength 5/5 throughout Psych mental status grossly normal Appearance: Negative for unkempt Attitude: No agitated Mood & Affect: Negative for depressed, anxious or tearful Skin no rashes or lesions noted and no wounds General Skin Exam: Negative for jaundice or pallor Lesions: No lesion noted Rashes: No rashes noted Trauma: Negative for abrasion Wounds: Negative for wounds noted MDM MDM MDM Narrative Medical decision making narrative: 67-year-old female with nausea, vomiting and diarrhea may all be secondary to viral gastroenteritis. She is having abdominal pain which could also be secondary to nausea, vomiting and diarrhea with her cough we will obtain a CAT scan to rule out intra-abdominal etiology such as diverticulitis. She is having no urinary symptoms. She will be treated with Zofran for nausea. She does not need any pain medication. Chest x-ray to be obtained due to the cough. Repeat exam at 6:50 PM patient is doing well. She does have some abdominal pain and distention which I did not appreciate as much initially but distention. She will be given morphine. I am awaiting her CAT scan results. I have already reviewed it myself. I suspect the patient will need to be admitted for dehydration, acute kidney injury and possible small bowel obstruction or ileus. Patient will be admitted to the hospitalist. I will discuss the patient's case with them. Lab Data Lab results narrative: CBC shows elevated white count 14.3. Normal H&H 12.1 and 37. Platelets are 555. Electrolytes show sodium 131. Potassium of 5.3. Gap at 9 with elevated BUN of 36 and elevated creatinine 1.75. Glucose 255. Lipase is elevated at 944. Negative flu swab. Negative COVID swab. Chest x-ray is negative. Labs: Laboratory Results - last 24 hr 08/04/22 08/04/22 17:35 17:35 WBC 14.3 H RBC 4.04 L Hgb 12.1 Hct 37.4 MCV 92.6 MCH 30.0 MCHC 32.4 RDW Std Deviation 52.5 H RDW Coeff of Yaw 15.5 H Plt Count 555 H MPV 9.3 Immature Gran % (Auto) 1.300 H Neut % (Auto) 82.0 H Lymph % (Auto) 10.5 L Kings % (Auto) 5.1 Eos % (Auto) 0.5 Baso % (Auto) 0.6 Absolute Neuts (auto) 11.8 H Absolute Lymphs (auto) 1.51 Nucleated RBC % 0 Sodium 131 L Potassium 5.3 H Chloride 99 Carbon Dioxide 23.0 Anion Gap 9 BUN 36 H Creatinine 1.75 H Estim Creat Clear Calc 31.55 Est GFR (MDRD) Af Amer 37 L Est GFR (MDRD) Non-Af 31 L BUN/Creatinine Ratio 20.6 H Glucose 255 H Calcium 8.9 Total Bilirubin 0.60 AST 10 L ALT 18 Alkaline Phosphatase 103 Total Protein 8.1 Albumin 3.7 Globulin 4.4 H Albumin/Globulin Ratio 0.8 L Lipase 944 H Radiography Chest X-Ray - ED: 1 View, Read by ED Physician, Read by Radiologist, Heart, Lungs, Mediastinum, Bony Structures, No Acute Disease and Chronic Changes Diagnostic Testing: Clinical Impression(s) from Imaging Studies Abdomen/Pelvis CT 08/04/22 17:20 IMPRESSION: (NOT LISTED IN ORDER OF SIGNIFICANCE) There is a possible ileus of the small bowel. There is no transition point noted. There is gradual normal tapering of the small bowel to a normal diameter at the level of the terminal ileum. Surveillance may be warranted. Other findings as above. Electronically Signed: Nabeel Andersen MD at 19:18 EDT , Chest X-Ray 08/04/22 18:25 IMPRESSION: No radiographic evidence of acute cardiopulmonary disease. Electronically Signed: Nabeel Andersen MD at 18:46 EDT , Chest x-ray, portable, single view, interpreted both by myself and radiology shows no acute abnormality. Normal cardiac silhouette. No infiltrate. CAT scan of the abdomen is read by the radiologist reviewed by me and has been read as an ileus. No transition point. Discharge Plan Triage Chief Complaint: General Illness ED Provider: Sanju Hernandez Dx/Rx/DC Orders Clinical Impression: Nausea vomiting and diarrhea, Ileus, Acute dehydration, Acute kidney injury, History of diabetes mellitus, History of chronic atrial fibrillation, Chronic anticoagulation Prescriptions: No Action nitroglycerin [Nitrostat] 0.4 mg tablet, sublingual 0.4 mg sublingual Q5-15M PRN (Reason: chest pain) Qty: 25 3RF Rx Instructions: do not exceed 3 doses per episode sucralfate [Carafate] 1 gram tablet 1 g PO BID losartan 50 mg tablet 50 mg PO DAILY Qty: 1 0RF (DME) FreeStyle Marilyn 14 Day Sensor Kit See Rx Instructions .ROUTE .MEDSUPPLY Qty: 2 6RF Rx Instructions: As directed (DME) pen needle, diabetic [BD Ultra-Fine Sophia Pen Needle] 32 gauge x 5/32 needle See Rx Instructions .Route Qty: 100 5RF Rx Instructions: TID insulin glargine [Lantus Solostar U-100 Insulin] 100 unit/mL (3 mL) insulin pen 30 unit subcut DAILY Qty: 27 3RF colestipol 1 gram Tablet 1 g PO DAILY fluconazole [Diflucan] 150 mg tablet 150 mg PO DAILY 2 Days Qty: 2 0RF Rx Instructions: administer on day 1 of therapy metoclopramide HCl [metoclopramide HCl] 10 mg tablet 10 mg PO Q12H PRN PRN (Reason: nausea or headache) Qty: 12 0RF (DME) blood-glucose meter [American GiantTouch Verio Flex Start] Kit See Rx Instructions .ROUTE .MEDSUPPLY Qty: 1 0RF Rx Instructions: Twice daily and as needed (DME) OneTouch Verio test strips Strip See Rx Instructions .ROUTE .MEDSUPPLY Qty: 300 3RF Rx Instructions: Check 3 times a day and as needed (DME) lancets [OneTouch UltraSoft Lancets] Misc See Rx Instructions .ROUTE .MEDSUPPLY Qty: 300 3RF Rx Instructions: Check 3 times a day and as needed allopurinol 100 mg tablet 100 mg PO QHS Qty: 90 3RF Eliquis 5 mg tablet 5 mg PO BID Qty: 180 3RF Hold Instructions: [facility]; hold 02/12 carvedilol 6.25 mg tablet 6.25 mg PO BID Qty: 180 4RF Rx Instructions: must administer with a meal/food pantoprazole 40 mg tablet,delayed release (DR/EC) 40 mg PO DAILY Qty: 90 3RF (DME) pen needle, diabetic [Lite Touch Insulin Pen [place]ley] 31 gauge x 5/16 needle See Rx Instructions .ROUTE .MEDSUPPLY Qty: 100 4RF Rx Instructions: As directed albuterol sulfate 90 mcg/actuation HFA aerosol inhaler 2 puff INHALATION Q6H PRN (Reason: Wheezing) Qty: 8.5 6RF insulin lispro [Humalog KwikPen Insulin] 100 unit/mL insulin pen 5 unit subcut TID Qty: 15 5RF escitalopram oxalate [Lexapro] 10 mg tablet 10 mg PO DAILY Qty: 90 3RF nystatin [Nyamyc] 100,000 unit/gram powder 1 applic topical BID PRN (Reason: skin infection) Qty: 30 1RF Ozempic 1 mg/dose (4 mg/3 mL) pen injector 1 mg subcut QWEEK Qty: 3 5RF atorvastatin 80 mg tablet 80 mg PO QHS Qty: 90 3RF Rx Instructions: cholesterol divalproex 125 mg capsule, delayed rel sprinkle 125 mg PO BID Qty: 180 3RF gabapentin 600 mg tablet 900 mg PO BID Qty: 180 3RF levothyroxine 112 mcg tablet 112 mcg PO MOTUWETHFR Qty: 90 3RF ticagrelor 90 mg tablet 90 mg PO BID Qty: 180 3RF Hold Instructions: 04/15/2020: SOB trazodone 50 mg tablet 50 mg PO QHS PRN (Reason: sleep) Qty: 90 1RF Primary Care Provider: Pat Bennett Referrals: Pat Bennett MD [Primary Care Provider] - Disposition Disposition: Acute Care Hospital
[2022-08-04] MEDS: 0.9% Normal Saline 1,000 ML 1000 ML IV (17:32)
[2022-08-04] MEDS: Ondansetron 4 MG/2 ML Vial IV (17:32)
[2022-08-04 17:49] LABS: Absolute Lymphocyte Count 1.51 X10^3/uL (0.83-4.51); Absolute Neutrophil Count 11.8 X10^3/uL (2.0-7.7); Basophil# 0.08 X10^3/uL; Basophil% 0.6 % (0-1); Eosinophil# 0.07 X10^3/uL; Eosinophils% 0.5 % (0-5); Hematocrit 37.4 % (37-47); Hemoglobin 12.1 g/dL (12.0-15.0); Lymphocyte # 1.51 X10^3/ul (0.83-4.51); Lymphocyte % 10.5 % (19-41); Mean Corp Hgb Conc 32.4 g/dL (32-36); Mean Corpuscular Volume 92.6 fL (81-99); Mean Platelet Vol. 9.3 fl (6.2-12.0); Monocyte# 0.73 X10^3/uL; Monocyte% 5.1 % (0-10); NRBC Flagged by Analyzer 0 % (0-5); Neutrophil # 11.76 X10^3/uL (2.7-7.7); Platelet Count 555 K/mm3 (150-450); RBC Distribution Width CV 15.5 % (11.6-14.6); RBC Distribution Width SD 52.5 fl (35.1-43.9); Red Blood Count 4.04 M/mm3 (4.2-5.4); White Blood Count 14.3 K/mm3 (4.4-11.0)
[2022-08-04 18:01] LABS: ALB/GLOB Ratio 0.8 RATIO (0.9-2.4); AST(SGOT) 10 U/L (15-37); Alanine Aminotransfer ALT/SGPT 18 U/L (13-56); Albumin, Serum 3.7 g/dL (3.2-5.0); Alkaline Phosphatase 103 U/L (45-117); Anion Gap 9 (5-15); BUN 36 mg/dL (7-18); BUN/Creat Ratio 20.6 RATIO (10-20); Calcium,Total 8.9 mg/dL (8.5-10.1); Chloride 99 mmol/L (98-107); Creatinine, Serum 1.75 mg/dL (0.55-1.02); EST Glomerular Filtration Rate 31 mL/min (>60); Est Glom Filt Rate - Afr Amer 37 mL/min (>60); Estimated Creatinine Clearance 31.55 ml/min; Globulin 4.4 g/dL (2.2-4.2); Glucose 255 mg/dL (74-106); Lipase 944 U/L (73-393); Potassium 5.3 mmol/L (3.5-5.1); Protein, Total 8.1 g/dL (6.4-8.2); Sodium Level 131 mmol/L (136-145)
--- NOTE | 2022-08-04 18:25 | RAD_ITS ---
EXAM: XR CHEST, 1 VIEW CLINICAL INDICATION: cough TECHNIQUE: Frontal view of the chest. This report was created using [employer] report generation technology. COMPARISON: 11.07.21 FINDINGS: LUNGS AND PLEURAL SPACES: Unremarkable. No consolidation or edema. No pneumothorax. No effusion. HEART: Unremarkable. Cardiac silhouette not enlarged. MEDIASTINUM: Central airways and mediastinal contour are unremarkable. BONES/JOINTS: Unremarkable. SOFT TISSUES: Unremarkable. RAD/Chest 1 View (Portable) IMPRESSION: No radiographic evidence of acute cardiopulmonary disease. Electronically Signed: Nabeel Andersen MD at 18:46 EDT ,
[2022-08-04] MEDS: morphine 8 MG/ML Syringe 6 MG IV (19:07)
[2022-08-04 19:08] VITALS: BP 164/62; PULSE 76; RESP 18; TEMP 36.7; O2SAT 97
--- NOTE | 2022-08-04 19:28 | PCM.HP.STD ---
HPI - General General Date of Admission: 08/04/22 Date of Service: 08/04/22 Chief Complaint: Abdominal pain HPI Narrative ASIF CASTRO, is a 67 F with a significant history of CAD status post 5 stents with last stent placed on 09/06/21; hypertension; diabetes mellitus; A-fib on Eliquis; CKD; chronic pancreatic insufficiency and cholecystectomy who presents to the emergency department with supra umbilical pain that started a night before presentation. She described the pain as sharp. The pain radiates across her entire abdomen. The pain increased with coughing. The pain improved with morphine that was given at the emergency department. Associated with symptom is nausea; vomiting and diarrhea. He reports that while she was vomiting she was also having loose stools at the same time. She reports bloating of her abdomen. She reports chills, and subjective fever. Home temperature was 99 Fahrenheit. She reports recent rhinorrhea. She reports that her grand children that she helps take care of has been having a viral illness. [facility] Medical History Acute kidney injury superimposed on chronic kidney disease Atherosclerotic heart disease of [place] coronary artery without angina pectoris Atrial fibrillation Bipolar disorder Chest congestion Chronic pancreatic insufficiency Dehydration Depression Diabetes Essential hypertension Fibromyalgia affecting multiple sites Generalized OA Hip pain, bilateral Hypertension Hypomagnesemia Hypotension Near syncope Overweight (BMI 25.0-29.9) Polyneuropathy due to type 2 diabetes mellitus Pre-op evaluation Shoulder pain, bilateral Tachybradycardia syndrome 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 GFR 30-59 Home Medications blood-glucose meter ([employer] Verio Flex Start kit) #1 ea 11/11/20 [Rx Last Taken Unknown] blood sugar diagnostic (LAN-Poweruch Verio test strips) #300 ea 11/12/20 [Rx Last Taken Unknown] lancets (VersiumTouch UltraSoft Lancets) #300 ea 11/12/20 [Rx Last Taken Unknown] nitroglycerin 0.4 mg sublingual tablet (Nitrostat) 0.4 mg sublingual Q5-15M PRN chest pain #25 tabs 01/11/21 [Rx Last Taken Unknown] flash glucose sensor (FreeStyle Marilyn 14 Day Sensor kit) #2 ea 07/26/21 [Rx Last Taken Unknown] allopurinol 100 mg tablet 100 mg PO QHS gout #90 tabs 10/27/21 [Rx Last Taken 11/06/21] apixaban 5 mg tablet (Eliquis) 5 mg PO BID #180 tabs 10/27/21 [Rx Last Taken 11/06/21] carvedilol 6.25 mg tablet 6.25 mg PO BID #180 tabs 10/27/21 [Rx Last Taken 11/06/21] pantoprazole 40 mg tablet,delayed release 40 mg PO DAILY gerd #90 tabs 10/27/21 [Rx Last Taken 11/06/21] colestipol 1 gram tablet 1 g PO DAILY cholesterol 11/07/21 [History Last Taken 11/06/21] pen needle, diabetic 31 gauge x 5/16 (Lite Touch Insulin Pen [place]) #100 ea 11/10/21 [Rx Last Taken Unknown] albuterol sulfate 90 mcg/actuation aerosol inhaler 2 puff inhalation Q6H PRN Wheezing #8.5 grams 12/20/21 [Rx Last Taken Unknown] losartan 50 mg tablet 50 mg PO DAILY #1 TAB 01/14/22 [Rx Last Taken Unknown] sucralfate 1 gram tablet (Carafate) 1 g PO BID 01/14/22 [History Last Taken Unknown] pen needle, diabetic 32 gauge x 5/32 (BD Ultra-Fine Sophia Pen Needle) #100 ea 02/07/22 [Rx Last Taken Unknown] insulin glargine 100 unit/mL (3 mL) subcutaneous pen (Lantus Solostar U-100 Insulin) 30 unit (0.3 mL) subcut DAILY #27 mL 02/09/22 [Rx Last Taken Unknown] Humalog KwikPen Insulin 100 unit/mL subcutaneous (insulin lispro) 5 unit (0.05 mL) subcut TID #15 mL 02/21/22 [Rx Last Taken Unknown] escitalopram oxalate 10 mg tablet (Lexapro) 10 mg PO DAILY #90 tabs 03/09/22 [Rx Last Taken Unknown] nystatin 100,000 unit/gram topical powder (Nyamyc) 1 applic topical BID PRN skin infection #30 grams 03/09/22 [Rx Last Taken Unknown] fluconazole 150 mg tablet (Diflucan) 150 mg PO DAILY 2 days #2 tabs 03/28/22 [Rx Last Taken Unknown] atorvastatin 80 mg tablet 80 mg PO QHS #90 tabs 05/18/22 [Rx Last Taken Unknown] divalproex 125 mg capsule,delayed release sprinkle 125 mg PO BID bipolar #180 caps 05/18/22 [Rx Last Taken Unknown] gabapentin 600 mg tablet 900 mg PO BID neuropathy #180 tabs 05/18/22 [Rx Last Taken Unknown] levothyroxine 112 mcg tablet 112 mcg PO MOTUWETHFR thyroid #90 tabs 05/18/22 [Rx Last Taken Unknown] semaglutide 1 mg/dose (4 mg/3 mL) subcutaneous pen injector (Ozempic) 1 mg (0.75 mL) subcut QWEEK #3 mL 05/18/22 [Rx Last Taken Unknown] ticagrelor 90 mg tablet 90 mg PO BID #180 tabs 05/18/22 [Rx Last Taken Unknown] trazodone 50 mg tablet 50 mg PO QHS PRN sleep #90 tabs 05/18/22 [Rx Last Taken Unknown] metoclopramide HCl 10 mg tablet 10 mg PO Q12H PRN PRN nausea or headache #12 tabs 07/20/22 [Rx Last Taken Unknown] Allergy/AdvReac Type Severity Reaction Status Date / Time duloxetine [From Cymbalta] Allergy Itching Verified 07/20/22 12:53 tomato Allergy Itching Verified 07/20/22 12:53 adhesive tape [plastic tape] AdvReac Rash Verified 07/20/22 12:53 isosorbide AdvReac Intermediate Headache Uncoded 07/20/22 12:53 and chest pain Family History Sister COPD (chronic obstructive pulmonary disease) Mother COPD (chronic obstructive pulmonary disease) Hypertension Alzheimer's dementia without behavioral disturbance Alzheimer's dementia Father Diabetes Hypertension Myocardial infarction Surgical History History of laparoscopic appendectomy History of total abdominal hysterectomy Hx of cholecystectomy Hx of shoulder surgery Presence of stent in coronary artery (~09/06/21) Social History Smoking Status: Current every day smoker tobacco type: cigarettes alcohol intake: never substance use type: does not use caffeine: No what type of physical activity do you participate in: none ROS ROS Narrative Pertinent positives and pertinent negatives as noted in HPI. All other systems were reviewed and are negative Vital Signs Vital Signs Vital Signs: 08/04/22 16:52 08/04/22 16:59 08/04/22 19:08 Temperature 98.0 F 98.1 F Temperature Source Oral Temporal Pulse Rate 65 76 Respiratory Rate 18 18 Respiratory Effort Normal Non-Labored Respiratory Pattern Normal Blood Pressure 166/76 H 164/62 H Blood Pressure Mean 106 96 Pulse Ox 96 97 Oxygen Delivery Method Room Air Room Air Weight Weight: 63.2 kg Body Mass Index (BMI) 28.1 Physical Exam Narrative Physical exam: General: Well-nourished, well-developed. Head: Normocephalic, atraumatic, no tenderness Eyes: Vision is grossly intact. EOMI ENT, no trauma, dry mucous membranes, no rhinorrhea Neck: Nontender, No thyromegaly. CVS: Regular rate and rhythm. S1-S2 present. No murmur, gallop or rub. Respiratory : clear to auscultation bilaterally, chest wall nontender, no wheezing Abdomen: Soft, nontender, distended, normal bowel sounds. : Deferred Back: Nontender, no CVA tenderness, no midline spinal tenderness, deformities, step-offs Extremities: Nontender full range of motion, no trauma Skin: Normal color, no trauma, abrasions Neuro: Alert, oriented, cranial nerves II through XII grossly intact. Psychiatry: Normal mood. Normal affect. Not depressed. Not anxious. Results Lab / Micro Data Result Diagrams: 08/04/22 17:35 08/04/22 17:35 Labs: Laboratory Results - last 24 hr 08/04/22 17:35: WBC 14.3 H, RBC 4.04 L, Hgb 12.1, Hct 37.4, MCV 92.6, MCH 30.0, MCHC 32.4, RDW Std Deviation 52.5 H, RDW Coeff of Yaw 15.5 H, Plt Count 555 H, MPV 9.3, Immature Gran % (Auto) 1.300 H, Neut % (Auto) 82.0 H, Lymph % (Auto) 10.5 L, [place] % (Auto) 5.1, Eos % (Auto) 0.5, Baso % (Auto) 0.6, Absolute Neuts (auto) 11.8 H, Absolute Lymphs (auto) 1.51, Nucleated RBC % 0 08/04/22 17:35: Sodium 131 L, Potassium 5.3 H, Chloride 99, Carbon Dioxide 23.0, Anion Gap 9, BUN 36 H, Creatinine 1.75 H, Estim Creat Clear Calc 31.55, Est GFR (MDRD) Af Amer 37 L, Est GFR (MDRD) Non-Af 31 L, BUN/Creatinine Ratio 20.6 H, Glucose 255 H, Calcium 8.9, Total Bilirubin 0.60, AST 10 L, ALT 18, Alkaline Phosphatase 103, Total Protein 8.1, Albumin 3.7, Globulin 4.4 H, Albumin/Globulin Ratio 0.8 L, Lipase 944 H Micro: Microbiology 08/04/22 17:35 Nasal Secretion SARS-CoV-2 & FLU Antigen (Rapid) - Final Radiology Impression Abdomen/Pelvis CT 08/04/22 17:20 IMPRESSION: (NOT LISTED IN ORDER OF SIGNIFICANCE) There is a possible ileus of the small bowel. There is no transition point noted. There is gradual normal tapering of the small bowel to a normal diameter at the level of the terminal ileum. Surveillance may be warranted. Other findings as above. Electronically Signed: Nabeel Andersen MD at 19:18 EDT , Chest X-Ray 08/04/22 18:25 IMPRESSION: No radiographic evidence of acute cardiopulmonary disease. Electronically Signed: Nabeel Andersen MD at 18:46 EDT , Assessment & Plan Assessment/Plan (1) Ileus: (2) Acute pancreatitis: QUALIFIERS: Acute pancreatitis complication: no infection or necrosis Pancreatitis type: unspecified pancreatitis type Qualified Code(s): K85.90 - Acute pancreatitis without necrosis or infection, unspecified (3) Acute dehydration: (4) Acute kidney injury: (5) History of chronic atrial fibrillation: PLAN: Plan Ileus Impression of abdomen/pelvis CT by radiology: There is a possible ileus of the small bowel. There is no transition point noted. There is gradual normal tapering of the small bowel to a normal diameter at the level of the terminal ileum. Surveillance may be warranted. Abdomen and pelvis CT was independently interpreted and I agree radiology interpretation. Morphine IV as needed and Zofran IV as needed ordered. We will keep NPO. IV fluids ordered. General surgery consult. Acute Pancreatitis Lipase level: 944. Highest lipase previously was 77 Calcium level is normal. Patient has a history of cholecystectomy. Lipid panel ordered to check triglycerides Hematocrit:37.4 BUN: 36 Patient received IV fluid bolus per squad and at the ED Lactated Ringer's at 100 ml/hr Antiemetics and pain control as above. SALVATORE on CKD stage IIIa SALVATORE on chronic kidney disease stage IIIa CKD Likely from Diabetic nephropathy Baseline creatinine of 1.2 Creatinine on admission was 1.75 IV hydration as above. Avoid nephrotoxins. Trend BMP Diabetes mellitus Patient with hyperglycemia on presentation On home Ozempic, basal insulin and correction scale insulin. With patient being n.p.o. decrease dose of home basal insulin. Accu-Chek with correction scale insulin ordered. URI Flonase ordered. History of Afib Stable. With ileus we will hold off anticoagulation at this time. Admit to [facility] with telemetry. CAD status post stents Stable N.p.o.. Hold home antiplatelets. Hypertension Blood pressure is not within goal Home blood pressure medication held secondary to n.p.o. status. As needed hydralazine IV ordered. Trend blood pressure and adjust blood pressure medications. DVT Prophylaxis SCDs ordered Charges/Coding Visit Charges Inpatient E&M: 96520 Init Hosp L3
[2022-08-04 19:37] VITALS: BP 164/62; PULSE 76; RESP 18; TEMP 36.7; O2SAT 97
[2022-08-04 21:02] VITALS: BMI 27.3
[2022-08-04 21:19] VITALS: O2SAT 97
[2022-08-04] MEDS: Lactated Ringers 1,000 ML 100 ML IV (21:34)
[2022-08-04 21:36] VITALS: BP 132/62; PULSE 60; RESP 17; TEMP 36.8; O2SAT 95
[2022-08-04] MEDS: Morphine 2 MG/ML Syringe IV (22:31)
[2022-08-04] MEDS: Fluticasone 0.05% 1 SPRAY NASAL.SRY 2 SPRAY NASAL (22:33)
[2022-08-04 22:40] VITALS: BMI 27.3
--- NOTE | 2022-08-04 22:52 | NURSING ---
GLUCOSED 138 per her own monitor in left arm, pt did not want fingers poked due to takes blood thinners
[2022-08-05] MEDS: Morphine 2 MG/ML Syringe IV ×4 (02:35→22:19)
[2022-08-05] MEDS: 0.9% Saline Lock 10 ML Syringe IV ×3 (02:35→22:19)
[2022-08-05 02:44] VITALS: BP 123/51; PULSE 59; RESP 16; TEMP 36.6; O2SAT 95
[2022-08-05 06:10] LABS: Absolute Lymphocyte Count 2.28 X10^3/uL (0.83-4.51); Absolute Neutrophil Count 7.1 X10^3/uL (2.0-7.7); Basophil# 0.03 X10^3/uL; Basophil% 0.3 % (0-1); Eosinophils% 1.9 % (0-5); Hematocrit 31.2 % (37-47); Hemoglobin 9.8 g/dL (12.0-15.0); Lymphocyte # 2.28 X10^3/ul (0.83-4.51); Lymphocyte % 21.4 % (19-41); Mean Corp Hgb Conc 31.4 g/dL (32-36); Mean Corpuscular Hgb 29.9 pg (27.0-32.0); Mean Corpuscular Volume 95.1 fL (81-99); Mean Platelet Vol. 9.2 fl (6.2-12.0); Monocyte# 0.93 X10^3/uL; Monocyte% 8.7 % (0-10); NRBC Flagged by Analyzer 0 % (0-5); Neutrophil # 7.14 X10^3/uL (2.7-7.7); Neutrophil % 66.9 % (47-70); Platelet Count 420 K/mm3 (150-450); RBC Distribution Width CV 15.8 % (11.6-14.6); Red Blood Count 3.28 M/mm3 (4.2-5.4); White Blood Count 10.7 K/mm3 (4.4-11.0)
[2022-08-05] MEDS: Lactated Ringers 1,000 ML 100 ML IV ×2 (06:20→16:27)
[2022-08-05 06:49] LABS: Anion Gap 7 (5-15); BUN 35 mg/dL (7-18); BUN/Creat Ratio 27.1 RATIO (10-20); Calcium,Total 7.7 mg/dL (8.5-10.1); Chloride 107 mmol/L (98-107); Cholesterol 173 mg/dL (200); Creatinine, Serum 1.29 mg/dL (0.55-1.02); EST Glomerular Filtration Rate 44 mL/min (>60); Est Glom Filt Rate - Afr Amer 53 mL/min (>60); Estimated Creatinine Clearance 41.65 ml/min; Glucose 116 mg/dL (74-106); High Density Lipoprotein 46 mg/dL; Potassium 4.4 mmol/L (3.5-5.1); Sodium Level 137 mmol/L (136-145); Triglycerides 320 mg/dL; Very Low Density Lipoprotein 64 mg/dL (5-40)
[2022-08-05 07:05] VITALS: O2SAT 94
--- NOTE | 2022-08-05 07:21 | PN.HOSP_ITS ---
Reason for Visit Reason for Visit: Diagnoses Dehydration (08/04/22) Ileus, unspecified (08/04/22) Acute pancreatitis without necrosis or infection, unspecified (08/04/22) Acute kidney failure, unspecified (08/04/22) Personal history of other diseases of the circulatory system (08/04/22) Subjective Subjective Drinking contrast and just feels nauseated with that. Abdomen not feeling any better. Objective Data Objective Data Vital Signs: Vital Signs Temp Pulse Resp BP Pulse Ox O2 Del Method 36.6 C 59 L 16 123/51 H 95 Room Air 08/05/22 02:44 08/05/22 02:44 08/05/22 02:44 08/05/22 02:44 08/05/22 02:44 08/05/22 02:44 Oxygen Delivery Method Room Air Weight: 61.5 kg Body Mass Index (BMI) 27.3 Intake & Output: Intake and Output for Last 24 Hours 08/03/22 08/04/22 08/05/22 23:59 23:59 23:59 Intake Total 1000 / 1000 876.67 / 876.67 Balance 1000 / 1000 876.67 / 876.67 Lab / Micro Data Result Diagrams: 08/05/22 05:14 08/05/22 05:14 Labs: Laboratory Results - last 24 hr 08/04/22 17:35: WBC 14.3 H, RBC 4.04 L, Hgb 12.1, Hct 37.4, MCV 92.6, MCH 30.0, MCHC 32.4, RDW Std Deviation 52.5 H, RDW Coeff of Yaw 15.5 H, Plt Count 555 H, MPV 9.3, Immature Gran % (Auto) 1.300 H, Neut % (Auto) 82.0 H, Lymph % (Auto) 10.5 L, [place] % (Auto) 5.1, Eos % (Auto) 0.5, Baso % (Auto) 0.6, Absolute Neuts (auto) 11.8 H, Absolute Lymphs (auto) 1.51, Nucleated RBC % 0 08/04/22 17:35: Sodium 131 L, Potassium 5.3 H, Chloride 99, Carbon Dioxide 23.0, Anion Gap 9, BUN 36 H, Creatinine 1.75 H, Estim Creat Clear Calc 31.55, Est GFR (MDRD) Af Amer 37 L, Est GFR (MDRD) Non-Af 31 L, BUN/Creatinine Ratio 20.6 H, Glucose 255 H, Calcium 8.9, Total Bilirubin 0.60, AST 10 L, ALT 18, Alkaline Phosphatase 103, Total Protein 8.1, Albumin 3.7, Globulin 4.4 H, Albumin/Globulin Ratio 0.8 L, Lipase 944 H 08/05/22 05:14: WBC 10.7, RBC 3.28 L, Hgb 9.8 L, Hct 31.2 L, MCV 95.1, MCH 29.9, MCHC 31.4 L, RDW Std Deviation 55.0 H, RDW Coeff of Yaw 15.8 H, Plt Count 420, MPV 9.2, Immature Gran % (Auto) 0.800, Neut % (Auto) 66.9, Lymph % (Auto) 21.4, [place] % (Auto) 8.7, Eos % (Auto) 1.9, Baso % (Auto) 0.3, Absolute Neuts (auto) 7.1, Absolute Lymphs (auto) 2.28, Nucleated RBC % 0 08/05/22 05:14: Sodium 137, Potassium 4.4, Chloride 107, Carbon Dioxide 23.0, Anion Gap 7, BUN 35 H, Creatinine 1.29 H, Estim Creat Clear Calc 41.65, Est GFR (MDRD) Af Amer 53 L, Est GFR (MDRD) Non-Af 44 L, BUN/Creatinine Ratio 27.1 H, Glucose 116 H, Calcium 7.7 L, Triglycerides 320 H, Cholesterol 173, LDL Cholesterol 63, VLDL Cholesterol 64 H, HDL Cholesterol 46 Micro: Microbiology 08/04/22 17:35 Nasal Secretion SARS-CoV-2 & FLU Antigen (Rapid) - Final Radiography Diagnostic Testing: Radiology Impression Abdomen/Pelvis CT 08/04/22 17:20 IMPRESSION: (NOT LISTED IN ORDER OF SIGNIFICANCE) There is a possible ileus of the small bowel. There is no transition point noted. There is gradual normal tapering of the small bowel to a normal diameter at the level of the terminal ileum. Surveillance may be warranted. Other findings as above. Electronically Signed: Nabeel Andersen MD at 19:18 EDT , Chest X-Ray 08/04/22 18:25 IMPRESSION: No radiographic evidence of acute cardiopulmonary disease. Electronically Signed: Nabeel Andersen MD at 18:46 EDT Reading Location ID and State: [facility] / [place] , Service support , Physical Exam Const Constitutional Narrative: Up at the side of the bed. Drinking contrast. Uncomfortable. Resp normal respiratory effort, no retractions, no use of accessory muscles and clear to auscultation bilaterally Cardio regular rate, regular rhythm, S1 normal heart sound and S2 normal heart sound GI normal to inspection, nondistended, normoactive bowel sounds, soft to palpation, non-tender and non-distended Assessment & Plan Assessment/Plan (1) Ileus: PLAN: Impression of abdomen/pelvis CT by radiology: There is a possible ileus of the small bowel. There is no transition point noted. There is gradual normal tapering of the small bowel to a normal diameter at the level of the terminal ileum. Surveillance may be warranted. Morphine IV as needed and Zofran IV as needed ordered. We will keep NPO. IV fluids ordered. General surgery consult. (2) Acute pancreatitis: QUALIFIERS: Acute pancreatitis complication: no infection or necrosis Pancreatitis type: unspecified pancreatitis type Qualified Code(s): K85.90 - Acute pancreatitis without necrosis or infection, unspecified PLAN: Acute Pancreatitis Lipase level: 944. Highest lipase previously was 77 Calcium level is normal. Patient has a history of cholecystectomy. Triglycerides elevated, but only 320, therefore, not due to hypertriglyceridemia. Lactated Ringer's at 100 ml/hr Antiemetics and pain control as above. (3) Acute kidney injury: PLAN: Improved SALVATORE on chronic kidney disease stage IIIa CKD Likely from Diabetic nephropathy Baseline creatinine of 1.2 Creatinine on admission was 1.75 IV hydration as above. Avoid nephrotoxins. (4) Anemia: PLAN: Hg dropped from 12.1 to 9.8. Unclear if dilutional. Monitor PLAN: Plan Chronic conditions: * Diabetes mellitus Patient with hyperglycemia on presentation On home Ozempic, basal insulin and correction scale insulin. With patient being n.p.o. decrease dose of home basal insulin (10, down from 30) Accu-Chek with correction scale insulin ordered. * History of AfibStable. With ileus we will hold off anticoagulation at this time. Admit to [facility] with telemetry. * CAD status post stents Stable N.p.o.. Hold home antiplatelets. * Hypertension Blood pressure is not within goal Home blood pressure medication held secondary to n.p.o. status. As needed hydralazine IV ordered. Trend blood pressure and adjust blood pressure medications. DVT Prophylaxis SCDs ordered Charges/Coding Visit Charges Inpatient E&M: 55734 Subs Hosp L2
--- NOTE | 2022-08-05 07:24 | CON.PCM.SX_ITS ---
Assessment & Plan Assessment/Plan (1) Abdominal pain: (2) Diarrhea: PLAN: Plan Okay for clears patient states she is having diarrhea all night abdominal pain is better. We will check KUB if KUB looks okay likely advance diet. Patient seems to have a cycle of constipation and diarrhea we will discuss importance of fiber in her diet later today. Addendum: KUB is still questions possible ileus versus obstruction. We will get a small bowel follow-through. Dior Alva M.D. Pager: [phone] [facility] [address] [place] [address], Outpatient Pavilion, [address] [place] [id number] Office: [phone] HPI Consult Data Date of Consult: 08/05/22 HPI Narrative HPI Narrative: ASIF CASTRO, is a 67 F who presents to the ER due to abdominal pain starting the night before last, patient had nausea/vomiting and diarrhea after that. Patient currently states her abdominal pain is improved she had diarrhea all night. Patient denies any nausea or vomiting currently. CT abdomen pelvis done showed possible ileus with dilated small bowel some fluid in the right side of the colon. Patient states that prior to the pain she was having bowel movements daily. But patient does have cycles of hard stools then diarrhea. Patient states she tried to take Metamucil previously does not feel like it w orked. Patient is unsure of much fiber she gets in her diet. Patient states she is on sucralfate and believes that this for her bowels. [facility] Medical History (Updated 08/05/22 @ 07:[address] Carrillo Buckley, DO) Acute kidney injury superimposed on chronic kidney disease Atherosclerotic heart disease of [place] coronary artery without angina pectoris Atrial fibrillation Bipolar disorder Chest congestion Chronic pancreatic insufficiency Dehydration Depression Diabetes Essential hypertension Fibromyalgia affecting multiple sites Generalized OA Gout Hiatal hernia Hip pain, bilateral Hypertension Hypomagnesemia Hypotension Hypothyroidism Near syncope Overweight (BMI 25.0-29.9) Polyneuropathy due to type 2 diabetes mellitus Pre-op evaluation Shoulder pain, bilateral Tachybradycardia syndrome 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 GFR 30-59 Umbilical hernia Home Medications blood-glucose meter ([employer] Verio Flex Start kit) #1 ea 11/11/20 [Rx Last Taken Unknown] blood sugar diagnostic (StrolbyTouch Verio test strips) #300 ea 11/12/20 [Rx Last Taken Unknown] lancets (OneTouch UltraSoft Lancets) #300 ea 11/12/20 [Rx Last Taken Unknown] nitroglycerin 0.4 mg sublingual tablet (Nitrostat) 0.4 mg sublingual Q5-15M PRN chest pain #25 tabs 01/11/21 [Rx Last Taken Unknown] flash glucose sensor (FreeStyle Marilyn 14 Day Sensor kit) #2 ea 07/26/21 [Rx Last Taken Unknown] allopurinol 100 mg tablet 100 mg PO QHS gout #90 tabs 10/27/21 [Rx Last Taken 08/03/22] pantoprazole 40 mg tablet,delayed release 40 mg PO DAILY gerd #90 tabs 10/27/21 [Rx Last Taken 08/03/22] colestipol 1 gram tablet 1 g PO DAILY cholesterol 11/07/21 [History Last Taken 08/03/22] pen needle, diabetic 31 gauge x 5/16 (Lite Touch Insulin Pen [place]) #100 ea 11/10/21 [Rx Last Taken Unknown] albuterol sulfate 90 mcg/actuation aerosol inhaler 2 puff inhalation Q6H PRN Wheezing #8.5 grams 12/20/21 [Rx Last Taken 07/30/22] sucralfate 1 gram tablet (Carafate) 1 g PO BID Check with primary doctor 01/14/22 [History Last Taken 08/03/22] pen needle, diabetic 32 gauge x 5/32 (BD Ultra-Fine Sophia Pen Needle) #100 ea 02/07/22 [Rx Last Taken Unknown] nystatin 100,000 unit/gram topical powder (Nyamyc) 1 applic topical BID PRN skin infection #30 grams 03/09/22 [Rx Last Taken Unknown] divalproex 125 mg capsule,delayed release sprinkle 125 mg PO BID bipolar #180 caps 05/18/22 [Rx Last Taken 08/03/22] gabapentin 600 mg tablet 900 mg PO BID neuropathy #180 tabs 05/18/22 [Rx Last Taken 08/03/22] levothyroxine 112 mcg tablet 112 mcg PO MOTUWETHFR thyroid #90 tabs 05/18/22 [Rx Last Taken 08/04/22] metoclopramide HCl 10 mg tablet 10 mg PO Q12H PRN PRN nausea or headache #12 tabs 07/20/22 [Rx Last Taken Unknown] apixaban 5 mg tablet (Eliquis) 5 mg PO BID Check with primary doctor 08/04/22 [History Last Taken 08/03/22] atorvastatin 80 mg tablet 80 mg PO QHS Check with primary doctor 08/04/22 [History Last Taken 08/03/22] carvedilol 6.25 mg tablet 6.25 mg PO BID Check with primary doctor 08/04/22 [History Last Taken 08/03/22] escitalopram oxalate 10 mg tablet (Lexapro) 10 mg PO DAILY Check with primary doctor 08/04/22 [History Last Taken 08/03/22] fluconazole 150 mg tablet (Diflucan) 150 mg PO DAILY PRN infection 08/04/22 [History Last Taken Unknown] insulin glargine 100 unit/mL (3 mL) subcutaneous pen (Lantus Solostar U-100 Insulin) 30 unit subcut QHS Check with primary doctor 08/04/22 [History Last Ta miriam 08/03/22] insulin lispro 100 unit/mL subcutaneous pen (Humalog KwikPen (U-100) Insulin) 5 unit subcut TID Check with primary doctor 08/04/22 [History Last Taken 08/03/22] losartan 50 mg tablet 50 mg PO DAILY Check with primary doctor 08/04/22 [History Last Taken 08/03/22] semaglutide 1 mg/dose (4 mg/3 mL) subcutaneous pen injector (Ozempic) 1 mg subcut QWEEK Check with primary doctor 08/04/22 [History Last Taken 08/02/22] ticagrelor 90 mg tablet 90 mg PO BID Check with primary doctor 08/04/22 [History Last Taken 08/03/22] Allergy/AdvReac Type Severity Reaction Status Date / Time duloxetine [From Cymbalta] Allergy Itching Verified 08/04/22 21:08 tomato Allergy Itching Verified 08/04/22 21:08 isosorbide AdvReac Intermediate Other Verified 08/04/22 21:11 adhesive tape [plastic tape] AdvReac Rash Verified 08/04/22 21:08 Family History Sister COPD (chronic obstructive pulmonary disease) Mother COPD (chronic obstructive pulmonary disease) Hypertension Alzheimer's dementia without behavioral disturbance Alzheimer's dementia Father Diabetes Hypertension Myocardial infarction Surgical History History of laparoscopic appendectomy History of total abdominal hysterectomy Hx of cholecystectomy Hx of shoulder surgery Presence of stent in coronary artery (~09/06/21) Social History Smoking Status: Current every day smoker tobacco type: cigarettes alcohol intake: never substance use type: does not use caffeine: No what type of physical activity do you participate in: none ROS Constitutional Constitutional: Reports anorexia Eyes Eyes: Denies change in vision ENT HEENT: Reports neck pain; Denies dysphagia Cardiovascular Cardiovascular: Denies chest pain Respiratory/Chest Respiratory/Chest: Denies cough Gastrointestinal Gastrointestinal: Reports abdominal pain, constipation, diarrhea, nausea and vomiting; Denies melena Genitourinary Genitourinary: Denies dysuria Musculoskeletal Musculoskeletal: Reports joint swelling Integumentary Integumentary: Denies jaundice Neurologic Neurologic: Denies focal weakness Psychiatric Psychiatric: Denies depression Hematologic/Lymphatic Hematologic/Lymphatic: Denies easy bleeding Physical Exam Const alert, oriented x3, no apparent distress and healthy appearing HEENT normocephalic and head/scalp atraumatic Resp normal respiratory effort Cardio regular rate GI soft to palpation; Negative for non-distended Palpation: tender epigastric (Minimally tender patient states could be from previous vomiting); Negative for guarding Extremity no clubbing, cyanosis or edema Neuro CN's II-XII intact bilaterally Psych mental status grossly normal Lab / Micro Data Result Diagrams: 08/05/22 05:14 08/05/22 05:14 Labs: Laboratory Results - last 24 hr 08/04/22 17:35: WBC 14.3 H, RBC 4.04 L, Hgb 12.1, Hct 37.4, MCV 92.6, MCH 30.0, MCHC 32.4, RDW Std Deviation 52.5 H, RDW Coeff of Yaw 15.5 H, Plt Count 555 H, MPV 9.3, Immature Gran % (Auto) 1.300 H, Neut % (Auto) 82.0 H, Lymph % (Auto) 10.5 L, [place] % (Auto) 5.1, Eos % (Auto) 0.5, Baso % (Auto) 0.6, Absolute Neuts (auto) 11.8 H, Absolute Lymphs (auto) 1.51, Nucleated RBC % 0 08/04/22 17:35: Sodium 131 L, Potassium 5.3 H, Chloride 99, Carbon Dioxide 23.0, Anion Gap 9, BUN 36 H, Creatinine 1.75 H, Estim Creat Clear Calc 31.55, Est GFR (MDRD) Af Amer 37 L, Est GFR (MDRD) Non-Af 31 L, BUN/Creatinine Ratio 20.6 H, Glucose 255 H, Calcium 8.9, Total Bilirubin 0.60, AST 10 L, ALT 18, Alkaline Phosphatase 103, Total Protein 8.1, Albumin 3.7, Globulin 4.4 H, Albumin/Globulin Ratio 0.8 L, Lipase 944 H 08/05/22 05:14: WBC 10.7, RBC 3.28 L, Hgb 9.8 L, Hct 31.2 L, MCV 95.1, MCH 29.9, MCHC 31.4 L, RDW Std Deviation 55.0 H, RDW Coeff of Yaw 15.8 H, Plt Count 420, MPV 9.2, Immature Gran % (Auto) 0.800, Neut % (Auto) 66.9, Lymph % (Auto) 21.4, [place] % (Auto) 8.7, Eos % (Auto) 1.9, Baso % (Auto) 0.3, Absolute Neuts (auto) 7.1, Absolute Lymphs (auto) 2.28, Nucleated RBC % 0 08/05/22 05:14: Sodium 137, Potassium 4.4, Chloride 107, Carbon Dioxide 23.0, Anion Gap 7, BUN 35 H, Creatinine 1.29 H, Estim Creat Clear Calc 41.65, Est GFR (MDRD) Af Amer 53 L, Est GFR (MDRD) Non-Af 44 L, BUN/Creatinine Ratio 27.1 H, Glucose 116 H, Calcium 7.7 L, Triglycerides 320 H, Cholesterol 173, LDL Cholesterol 63, VLDL Cholesterol 64 H, HDL Cholesterol 46 Micro: Microbiology 08/04/22 17:35 Nasal Secretion SARS-CoV-2 & FLU Antigen (Rapid) - Final Radiology Impression Abdomen/Pelvis CT 08/04/22 17:20 IMPRESSION: (NOT LISTED IN ORDER OF SIGNIFICANCE) There is a possible ileus of the small bowel. There is no transition point noted. There is gradual normal tapering of the small bowel to a normal diameter at the level of the terminal ileum. Surveillance may be warranted. Other findings as above. Electronically Signed: Nabeel Andersen MD at 19:18 EDT , Chest X-Ray 08/04/22 18:25 IMPRESSION: No radiographic evidence of acute cardiopulmonary disease. Electronically Signed: Nabeel Andersen MD at 18:46 EDT , Charges/Coding Visit Charges Inpatient E&M: 72440 Init Hosp L3
--- NOTE | 2022-08-05 07:27 | RAD_ITS ---
HISTORY: Abdominal pain, ileus. TECHNIQUE: XR Abdomen 1 View. COMPARISON: XR prior day. FINDINGS: BOWEL GAS PATTERN: Mildly dilated air-filled small bowel in the midabdomen again seen FREE AIR: Not assessed on supine view. BONES: Unremarkable. SOFT TISSUES: Lung bases clear. Right upper quadrant surgical clips. Residual contrast in the bladder. RAD/Abdomen Single View (Portable) IMPRESSION: Persistent small bowel obstruction or ileus. Electronically Signed: Kamille Lezama MD at 8:04 EDT ,
[2022-08-05 08:17] VITALS: BP 111/66; PULSE 56; RESP 18; TEMP 36.5; O2SAT 92
[2022-08-05 08:46] LABS: Lipase 428 U/L (73-393)
--- NOTE | 2022-08-05 09:30 | RAD_ITS ---
CLINICAL HISTORY: Female, 67 years old. Abdominal pain and distention PROCEDURE: Small bowel follow-through study No fluoroscopy time, 5 overhead images obtained. TECHNIQUE: (All elements of maximal sterile barrier technique followed, including US elements as applicable) A mixture of 100 mL Gastrografin and 100 mL water ingested by mouth. Serial films tracked the contrast through the small intestine Manager [employer] film demonstrates an unremarkable bowel gas pattern. EKG leads overlie the lower chest and upper abdomen. There is a normal mucosal pattern in the stomach, duodenum and jejunum. No submucosal thickening noted no abnormal separation of bowel loops to suspect an acute inflammatory process. No obstruction or ileus. Transit time to the terminal ileum was between 1 and 3 hours which is within normal range. RAD/Small Bowel Series Only IMPRESSION: Normal small bowel follow-through study Electronically Signed: Neri Truong MD at 13:16 EDT ,
[2022-08-05] MEDS: Fluticasone 0.05% 1 SPRAY NASAL.SRY 2 SPRAY NASAL (10:01)
--- NOTE | 2022-08-05 13:15 | CASEMGMT ---
WU MACKAY Assessment: Face to Face with pt for initial transition planning/care coordination assessment. RN THOMPSON introduced self and role at [facility], pt voices understanding and consents to assessment. Pt is A/O x4 and answers all questions appropriately at this time. Pt lying in bed with eyes closed in no distress. Care providers, pharmacy, and demographics verified/updated. Admitting Dx: ileus, pancreatitis, SALVATORE PCP:Donald Specialists:JERI, cardio; tato Garcia; Frank nephro [facility]erred [facility]acy: [facility] Insurance: [facility] Dual Comp, TUAN Prescription Benefit: yes LNOK: Lisa Lawson, dtgalen Living Arrangements: Pt lives with her mother in which she takes care of in a single story home with a ramp to enter. Pt reports she is I in ADL's and denies concerns at home. Transportation: Pt drives self and denies concerns with transportation. DME/HHC/SNF: Pt has a CGM with sufficient supplies as well as insulin. Pt also has acces to canes, w/c and BP cuff. Pt does not use AD. Pt denies hx of HHC or SNF stays. Pt states no concerns with going home at time of dc. Pt states no further concerns/needs. CM to follow. Advised pt to ask CM if any further question/concerns/needs arise, voices understanding. Pt Goal: Home Plan: Home
[2022-08-05 14:38] VITALS: BP 146/69; PULSE 69; RESP 18; TEMP 37.2; O2SAT 98
--- NOTE | 2022-08-05 14:52 | CT_ITS ---
STUDY: CT SOFT TISSUE NECK WITH CONTRAST REASON FOR EXAM: Female, 67 years old. right face and neck swelling -- attention right submandiular, parotid glands. RADIATION DOSAGE (If Supplied By Facility): CTDIvol = ( 18.16 ) mGy, DLP = ( 559.96 ) mGycm TECHNIQUE: The patient was scanned in a multi-detector CT scanner. High resolution transaxial imaging was performed following intravenous administration of IV 75mL Isovue-370. Sagittal and coronal images were reconstructed. Individualized dose optimization techniques were used for this CT. COMPARISON: None. FINDINGS: Diffusely fatty infiltrated bilateral parotid glands. Normal bilateral disability liaison officer spaces. Normal bilateral parapharyngeal spaces. Normal bilateral carotid spaces. The right submandibular gland is normal in size but demonstrates subtle hazy appearance possibly due to nonspecific inflammation.. There is no focal mass, stone or ductal dilatation. However, there does appear to be very mild effacement of the fat lateral to the submandibular gland with mild thickening of the fascia which may be also be consistent with mild focal inflammatory changes. Normal visualized nasopharynx. Normal retropharyngeal space. Normal perivertebral space. Normal visualized bilateral faucial tonsils. The visualized tongue, tongue base and oropharynx are normal. There is a mildly enlarged periparotid lymph node measuring approximately 1.3 x 0.8 cm. There is also a mildly enlarged node measuring approximately 1.04 x 0.67 cm within the sublingual space Normal epiglottis, bilateral vallecula and hypopharynx. The pre-epiglottic and paraglottic adipose spaces are normal. Normal visualized bilateral piriform sinuses, aryepiglottic folds, vocal cords, and arytenoid-cricoid articulations. Normal subglottic trachea. Normal bilateral lobes of the thyroid gland. Normal visualized pulmonary apices. Normal visualized paranasal sinuses. Normal visualized cervical spine. CT/Soft Tissue Neck WITH Contrast IMPRESSION: Findings suggestive of mild nonspecific sialoadenitis involving the right submandibular and possibly parotid glands with reactive adenopathy.. No evidence for focal salivary gland mass, calculus or ductal dilatation Electronically Signed: Nadeem Oscar MD at 16:32 EDT ,
--- NOTE | 2022-08-05 16:32 | NURSING ---
pt back from CT, medicated for pain. pt checked OT with patient on [employer], reading 142. pt states hasn't really ate anything. states just doesn't feel good. no c/o abd pain at present. ivf resumed. denies all further needs. call light within reach.
[2022-08-05] MEDS: Ondansetron 4 MG/2 ML Vial IV (22:19)
[2022-08-05 22:37] VITALS: BP 138/69; PULSE 72; RESP 18; TEMP 37.5; O2SAT 96
[2022-08-05 22:46] VITALS: BP 138/69; PULSE 72; RESP 18; TEMP 37.5; O2SAT 100
[2022-08-06] MEDS: Carvedilol 6.25 MG Tablet PO ×3 (00:39→15:45)
[2022-08-06] MEDS: Divalproex Sodium 125 MG SPRINKLE PO ×3 (00:39→22:00)
[2022-08-06] MEDS: Pantoprazole Sodium 40 MG Tablet PO ×2 (00:39→10:45)
[2022-08-06] MEDS: Acetaminophen 325 MG Tablet 650 MG PO (00:39)
[2022-08-06] MEDS: Lactated Ringers 1,000 ML 100 ML IV ×2 (00:42→10:46)
[2022-08-06] MEDS: Sucralfate 1 GM Tablet PO ×2 (05:54→15:53)
[2022-08-06 05:57] VITALS: BP 124/53; PULSE 65; RESP 18; TEMP 37.2; O2SAT 99
[2022-08-06 06:55] LABS: Absolute Lymphocyte Count 0.97 X10^3/uL (0.83-4.51); Absolute Neutrophil Count 6.7 X10^3/uL (2.0-7.7); Basophil# 0.03 X10^3/uL; Basophil% 0.4 % (0-1); Eosinophil# 0.01 X10^3/uL; Eosinophils% 0.1 % (0-5); Hematocrit 29.1 % (37-47); Hemoglobin 9.2 g/dL (12.0-15.0); Lymphocyte # 0.97 X10^3/ul (0.83-4.51); Lymphocyte % 11.7 % (19-41); Mean Corp Hgb Conc 31.6 g/dL (32-36); Mean Corpuscular Hgb 29.9 pg (27.0-32.0); Mean Corpuscular Volume 94.5 fL (81-99); Mean Platelet Vol. 9.2 fl (6.2-12.0); Monocyte# 0.56 X10^3/uL; Monocyte% 6.7 % (0-10); NRBC Flagged by Analyzer 0 % (0-5); Neutrophil # 6.69 X10^3/uL (2.7-7.7); Neutrophil % 80.6 % (47-70); Platelet Count 365 K/mm3 (150-450); RBC Distribution Width CV 15.9 % (11.6-14.6); RBC Distribution Width SD 54.5 fl (35.1-43.9); Red Blood Count 3.08 M/mm3 (4.2-5.4); White Blood Count 8.3 K/mm3 (4.4-11.0)
--- NOTE | 2022-08-06 07:16 | PCM.PN.HOSP ---
Reason for Visit Reason for Visit: Diagnoses Anemia, unspecified (08/04/22) Dehydration (08/04/22) Ileus, unspecified (08/04/22) Acute pancreatitis without necrosis or infection, unspecified (08/04/22) Acute kidney failure, unspecified (08/04/22) Unspecified abdominal pain (08/04/22) Diarrhea, unspecified (08/04/22) Personal history of other diseases of the circulatory system (08/04/22) Subjective Subjective Still with facial pain and abdominal pain. Does not feel well. Objective Data Objective Data Vital Signs: Vital Signs Temp Pulse Resp BP Pulse Ox O2 Del Method 37.2 C 65 18 124/53 H 99 Room Air 08/06/22 05:57 08/06/22 05:57 08/06/22 05:57 08/06/22 05:57 08/06/22 05:57 08/06/22 05:57 Oxygen Delivery Method Room Air Weight: 61.5 kg Body Mass Index (BMI) 27.3 Intake & Output: Intake and Output for Last 24 Hours 08/04/22 08/05/22 08/06/22 23:59 23:59 23:59 Intake Total 1000 / 1000 2276.67 / 2276.67 825 / 825 Output Total 200 / 200 200 / 200 Balance 1000 / 1000 2076.67 / 2076.67 625 / 625 Lab / Micro Data Result Diagrams: 08/06/22 06:30 08/06/22 06:30 Labs: Laboratory Results - last 24 hr 08/05/22 05:14: Lipase 428 H 08/06/22 06:30: WBC 8.3, RBC 3.08 L, Hgb 9.2 L, Hct 29.1 L, MCV 94.5, MCH 29.9, MCHC 31.6 L, RDW Std Deviation 54.5 H, RDW Coeff of Yaw 15.9 H, Plt Count 365, MPV 9.2, Immature Gran % (Auto) 0.500, Neut % (Auto) 80.6 H, Lymph % (Auto) 11.7 L, [place] % (Auto) 6.7, Eos % (Auto) 0.1, Baso % (Auto) 0.4, Absolute Neuts (auto) 6.7, Absolute Lymphs (auto) 0.97, Nucleated RBC % 0 Micro: Microbiology 08/04/22 17:35 Nasal Secretion SARS-CoV-2 & FLU Antigen (Rapid) - Final Radiography Diagnostic Testing: Radiology Impression KUB X-Ray 08/05/22 07:27 IMPRESSION: Persistent small bowel obstruction or ileus. Electronically Signed: Kamille Lezama MD at 8:04 EDT , Small Bowel X-Ray 08/05/22 09:30 IMPRESSION: Normal small bowel follow-through study Electronically Signed: Neri Truong MD at 13:16 EDT , Soft Tissue Neck CT 08/05/22 14:52 IMPRESSION: Findings suggestive of mild nonspecific sialoadenitis involving the right submandibular and possibly parotid glands with reactive adenopathy.. No evidence for focal salivary gland mass, calculus or ductal dilatation Electronically Signed: Nadeem Oscar MD at 16:32 EDT , Physical Exam Const alert and no apparent distress HEENT head/scalp atraumatic, moist oral mucous membranes, oropharynx normal and dentition normal HEENT Narrative: submandinular swelling. parotid swelling. Resp normal respiratory effort, no retractions, no use of accessory muscles and clear to auscultation bilaterally Cardio regular rate, regular rhythm, S1 normal heart sound and S2 normal heart sound GI normal to inspection, nondistended, normoactive bowel sounds, soft to palpation and non-tender Assessment & Plan Assessment/Plan (1) Ileus: PLAN: Impression of abdomen/pelvis CT by radiology: There is a possible ileus of the small bowel. There is no transition point noted. There is gradual normal tapering of the small bowel to a normal diameter at the level of the terminal ileum. Surveillance may be warranted. Small bowel follow-through is negative Diet has since been advanced (2) Acute pancreatitis: QUALIFIERS: Acute pancreatitis complication: no infection or necrosis Pancreatitis type: unspecified pancreatitis type Qualified Code(s): K85.90 - Acute pancreatitis without necrosis or infection, unspecified PLAN: Acute Pancreatitis Lipase level: 944. Highest lipase previously was 77 Calcium level is normal. Patient has a history of cholecystectomy. Triglycerides elevated, but only 320, therefore, not due to hypertriglyceridemia. Lactated Ringer's at 100 ml/hr Antiemetics and pain control as above. (3) Acute kidney injury: PLAN: Improved SALVATORE on chronic kidney disease stage IIIa CKD Likely from Diabetic nephropathy Baseline creatinine of 1.2 Creatinine on admission was 1.75 IV hydration as above. Avoid nephrotoxins. (4) Anemia: PLAN: Hg dropped from 12.1 to 9.2 Suspect dilutional. Monitor (5) Sialoadenitis of submandibular gland: PLAN: CAT scan showed findings suggestive of mild nonspecific Sailoadenitis involving the right submandibular and possibly parotid glands with reactive adenopathy. Patient to have either hard candy or mints to help with this resolution Suspect due to vomiting the patient was having. No stones were identified. Cannot rule out contrast-induced. Check viral panel. Warm compresses, Ketorolac PLAN: Plan Chronic conditions: Diabetes mellitus Patient with hyperglycemia on presentation On home Ozempic, basal insulin and correction scale insulin. With patient being n.p.o. decrease dose of home basal insulin (10, down from 30) Accu-Chek with correction scale insulin ordered. History of AfibStable. With ileus we will hold off anticoagulation at this time. Admit to [facility] with telemetry. CAD status post stents Stable N.p.o.. Hold home antiplatelets. Hypertension Blood pressure is not within goal Home blood pressure medication held secondary to n.p.o. status. As needed hydralazine IV ordered. Trend blood pressure and adjust blood pressure medications. DVT Prophylaxis SCDs ordered Charges/Coding Visit Charges Inpatient E&M: 87540 Subs Hosp L2
[2022-08-06 07:31] LABS: Anion Gap 10 (5-15); BUN 19 mg/dL (7-18); BUN/Creat Ratio 15.7 RATIO (10-20); Calcium,Total 7.7 mg/dL (8.5-10.1); Chloride 100 mmol/L (98-107); Creatinine, Serum 1.21 mg/dL (0.55-1.02); EST Glomerular Filtration Rate 47 mL/min (>60); Est Glom Filt Rate - Afr Amer 57 mL/min (>60); Glucose 114 mg/dL (74-106); Potassium 3.6 mmol/L (3.5-5.1); Sodium Level 136 mmol/L (136-145)
[2022-08-06] MEDS: Ondansetron 4 MG/2 ML Vial IV (08:04)
[2022-08-06] MEDS: 0.9% Saline Lock 10 ML Syringe IV ×2 (08:08→12:28)
[2022-08-06 08:14] VITALS: BP 135/65; PULSE 64; RESP 18; TEMP 37.1; O2SAT 98
--- NOTE | 2022-08-06 08:24 | PCM.PN.SRG ---
Subjective Subjective Patient was very nauseous this morning when I rounded on her and she says she has been having loose bowel movements. She is complaining of headache and facial swelling and nausea. She does not have any distinct or punctate abdominal pain. Objective Data Objective Data Vital Signs: Vital Signs Temp Pulse Resp BP Pulse Ox O2 Del Method 98.8 F 64 18 135/65 H 98 Room Air 08/06/22 08:14 08/06/22 08:14 08/06/22 08:14 08/06/22 08:14 08/06/22 08:14 08/06/22 08:17 Oxygen Delivery Method Room Air Weight: 135 lb 9.349 oz Body Mass Index (BMI) 27.3 Intake & Output: Intake and Output for Last 24 Hours 08/04/22 08/05/22 08/06/22 23:59 23:59 23:59 Intake Total 1000 / 1000 2276.67 / 2276.67 825 / 825 Output Total 200 / 200 200 / 200 Balance 1000 / 1000 2076.67 / 2076.67 625 / 625 Lab / Micro Data Result Diagrams: 08/06/22 06:30 08/06/22 06:30 Labs: Laboratory Results - last 24 hr 08/05/22 05:14: Lipase 428 H 08/06/22 06:30: WBC 8.3, RBC 3.08 L, Hgb 9.2 L, Hct 29.1 L, MCV 94.5, MCH 29.9, MCHC 31.6 L, RDW Std Deviation 54.5 H, RDW Coeff of Yaw 15.9 H, Plt Count 365, MPV 9.2, Immature Gran % (Auto) 0.500, Neut % (Auto) 80.6 H, Lymph % (Auto) 11.7 L, [place] % (Auto) 6.7, Eos % (Auto) 0.1, Baso % (Auto) 0.4, Absolute Neuts (auto) 6.7, Absolute Lymphs (auto) 0.97, Nucleated RBC % 0 08/06/22 06:30: Sodium 136, Potassium 3.6, Chloride 100, Carbon Dioxide 26.0, Anion Gap 10, BUN 19 H, Creatinine 1.21 H, Estim Creat Clear Calc 44.40, Est GFR (MDRD) Af Amer 57 L, Est GFR (MDRD) Non-Af 47 L, BUN/Creatinine Ratio 15.7, Glucose 114 H, Calcium 7.7 L Micro: Microbiology 08/04/22 17:35 Nasal Secretion SARS-CoV-2 & FLU Antigen (Rapid) - Final Radiography Diagnostic Testing: Radiology Impression Small Bowel X-Ray 08/05/22 09:30 IMPRESSION: Normal small bowel follow-through study Electronically Signed: Neri Truong MD at 13:16 EDT , Soft Tissue Neck CT 08/05/22 14:52 IMPRESSION: Findings suggestive of mild nonspecific sialoadenitis involving the right submandibular and possibly parotid glands with reactive adenopathy.. No evidence for focal salivary gland mass, calculus or ductal dilatation Electronically Signed: Nadeem Oscar MD at 16:32 EDT , Physical Exam Const oriented x3 General Appearance: ill appearing Resp normal respiratory effort GI soft to palpation and non-tender Assessment & Plan Assessment/Plan (1) Ileus: PLAN: There is question of possible bowel obstruction. The patient had small bowel follow-through yesterday which showed transit into the colon. Patient did have soft loose bowel movements through the night likely due to the contrast. She was very nauseated this morning and she has very nonspecific complaints like a headache and sore throat and facial swelling. Unsure as to why all of the symptoms are occurring but I believe she may have some systemic viral illness going on. Influenza and COVID were negative yesterday. Lipase was returned normal and unsure if it was pancreatitis all as it was only mildly elevated. Her creatinine and white count are improving. I do not believe there is any surgical indication at this time. Franck Butler MD Pager: [facility] [address] [place] [address], [address] [place] [address] Office:
--- NOTE | 2022-08-06 08:46 | RAD_ITS ---
EXAM: XR ABDOMEN, 1 VIEW CLINICAL INDICATION: ileus TECHNIQUE: Frontal supine view of the abdomen/pelvis. This report was created using [employer]onto[employer] report generation technology. COMPARISON: XR Abdomen dated 08/05/2022 FINDINGS: GASTROINTESTINAL TRACT: Contrast noted within the large bowel and rectum. Persistent distention of the small bowel. ORGANS: No organomegaly. BONES/JOINTS: No acute abnormality. SOFT TISSUES: No pathological calcification. RAD/Abdomen Single View (Portable) IMPRESSION: Persistent distention of small bowel suggestive of incomplete small bowel obstruction. Electronically Signed: Calvin Leonard MD at 11:33 EDT ,
[2022-08-06] MEDS: Gabapentin 300 MG Capsule 900 MG PO ×2 (10:45→21:59)
[2022-08-06] MEDS: Fluticasone 0.05% 1 SPRAY NASAL.SRY 2 SPRAY NASAL (10:45)
[2022-08-06] MEDS: Escitalopram Oxalate 20 MG Tablet PO (10:45)
[2022-08-06] MEDS: Insulin Lispro 100 UNIT/ML INSULN.PEN SC ×3 (10:47→19:45)
[2022-08-06] MEDS: Ketorolac 15 MG/ML Vial IV ×2 (12:27→22:07)
[2022-08-06] MEDS: 0.9% Normal Saline 1,000 ML 150 ML IV ×2 (13:06→19:42)
[2022-08-06 14:14] VITALS: O2SAT 94
[2022-08-06 15:48] VITALS: BP 126/71; PULSE 74; RESP 18; TEMP 36.9; O2SAT 98
[2022-08-06 20:10] VITALS: BP 108/54; PULSE 66; RESP 16; TEMP 37.6; O2SAT 99
[2022-08-06] MEDS: Allopurinol 100 MG Tablet PO (22:00)
[2022-08-06] MEDS: Atorvastatin Calcium 80 MG Tablet PO (22:00)
[2022-08-06] MEDS: Insulin Glargine-YFGN 100 UNIT/ML Pen 10 UNIT SC (22:02)
[2022-08-07] MEDS: 0.9% Normal Saline 1,000 ML 150 ML IV (02:19)
[2022-08-07 02:52] VITALS: BP 119/54; PULSE 70; RESP 16; TEMP 37.1; O2SAT 93
[2022-08-07 06:13] LABS: Absolute Lymphocyte Count 0.85 X10^3/uL (0.83-4.51); Absolute Neutrophil Count 6.4 X10^3/uL (2.0-7.7); Basophil# 0.02 X10^3/uL; Basophil% 0.3 % (0-1); Eosinophil# 0.02 X10^3/uL; Eosinophils% 0.3 % (0-5); Hematocrit 26.2 % (37-47); Hemoglobin 8.3 g/dL (12.0-15.0); Lymphocyte # 0.85 X10^3/ul (0.83-4.51); Lymphocyte % 10.7 % (19-41); Mean Corp Hgb Conc 31.7 g/dL (32-36); Mean Corpuscular Hgb 29.5 pg (27.0-32.0); Mean Corpuscular Volume 93.2 fL (81-99); Mean Platelet Vol. 9.3 fl (6.2-12.0); Monocyte# 0.54 X10^3/uL; Monocyte% 6.8 % (0-10); NRBC Flagged by Analyzer 0 % (0-5); Neutrophil # 6.42 X10^3/uL (2.7-7.7); Platelet Count 310 K/mm3 (150-450); RBC Distribution Width CV 15.7 % (11.6-14.6); RBC Distribution Width SD 53.9 fl (35.1-43.9); Red Blood Count 2.81 M/mm3 (4.2-5.4); White Blood Count 7.9 K/mm3 (4.4-11.0)
[2022-08-07] MEDS: Sucralfate 1 GM Tablet PO ×2 (06:25→16:28)
[2022-08-07] MEDS: Ketorolac 15 MG/ML Vial IV ×2 (06:30→16:28)
[2022-08-07 07:10] LABS: ALB/GLOB Ratio 0.8 RATIO (0.9-2.4); AST(SGOT) 14 U/L (15-37); Alanine Aminotransfer ALT/SGPT 14 U/L (13-56); Albumin, Serum 2.5 g/dL (3.2-5.0); Alkaline Phosphatase 68 U/L (45-117); Anion Gap 8 (5-15); BUN 16 mg/dL (7-18); BUN/Creat Ratio 15.7 RATIO (10-20); Chloride 104 mmol/L (98-107); Creatinine, Serum 1.02 mg/dL (0.55-1.02); EST Glomerular Filtration Rate 58 mL/min (>60); Est Glom Filt Rate - Afr Amer 70 mL/min (>60); Estimated Creatinine Clearance 52.67 ml/min; Globulin 3.3 g/dL (2.2-4.2); Glucose 151 mg/dL (74-106); Potassium 3.1 mmol/L (3.5-5.1); Protein, Total 5.8 g/dL (6.4-8.2); Sodium Level 137 mmol/L (136-145)
--- NOTE | 2022-08-07 07:28 | PN.SURG_ITS ---
Subjective Subjective Patient reports she tolerated a regular diet and she is having no abdominal pain. She says the diarrhea is improving. She had no nausea overnight. She is still complaining of a lot of facial and extremity swelling Objective Data Objective Data Vital Signs: Vital Signs Temp Pulse Resp BP Pulse Ox O2 Del Method 98.7 F 70 16 119/54 L 93 Room Air 08/07/22 02:52 08/07/22 02:52 08/07/22 02:52 08/07/22 02:52 08/07/22 02:52 08/07/22 02:52 Oxygen Delivery Method Room Air Weight: 135 lb 9.349 oz Body Mass Index (BMI) 27.3 Intake & Output: Intake and Output for Last 24 Hours 08/05/22 08/06/22 08/07/22 23:59 23:59 23:59 Intake Total 2276.67 / 2276.67 3003.33 / 3303.33 1792.5 / 1792.5 Output Total 200 / 200 200 / 200 Balance 2076.67 / 2076.67 2803.33 / 3103.33 1792.5 / 1792.5 Lab / Micro Data Result Diagrams: 08/07/22 05:45 08/07/22 05:45 Labs: Laboratory Results - last 24 hr 08/06/22 06:30: Sodium 136, Potassium 3.6, Chloride 100, Carbon Dioxide 26.0, Anion Gap 10, BUN 19 H, Creatinine 1.21 H, Estim Creat Clear Calc 44.40, Est GFR (MDRD) Af Amer 57 L, Est GFR (MDRD) Non-Af 47 L, BUN/Creatinine Ratio 15.7, Glucose 114 H, Calcium 7.7 L 08/07/22 05:45: WBC 7.9, RBC 2.81 L, Hgb 8.3 L, Hct 26.2 L, MCV 93.2, MCH 29.5, MCHC 31.7 L, RDW Std Deviation 53.9 H, RDW Coeff of Yaw 15.7 H, Plt Count 310, MPV 9.3, Immature Gran % (Auto) 0.900, Neut % (Auto) 81.0 H, Lymph % (Auto) 10.7 L, [place] % (Auto) 6.8, Eos % (Auto) 0.3, Baso % (Auto) 0.3, Absolute Neuts (auto) 6.4, Absolute Lymphs (auto) 0.85, Nucleated RBC % 0 08/07/22 05:45: Sodium 137, Potassium 3.1 L, Chloride 104, Carbon Dioxide 25.0, Anion Gap 8, BUN 16, Creatinine 1.02, Estim Creat Clear Calc 52.67, Est GFR (MDRD) Af Amer 70, Est GFR (MDRD) Non-Af 58 L, BUN/Creatinine Ratio 15.7, Glucose 151 H, Calcium 7.0 L, Total Bilirubin 0.30, AST 14 L, ALT 14, Alkaline Phosphatase 68, Total Protein 5.8 L, Albumin 2.5 L, Globulin 3.3, Albumin/Globulin Ratio 0.8 L Micro: Microbiology 08/06/22 06:00 Stool Enteric Bacteriology - Final 08/06/22 06:00 Stool C. difficile DNA Amplification - Final 08/04/22 17:35 Nasal Secretion SARS-CoV-2 & FLU Antigen (Rapid) - Final Radiography Diagnostic Testing: Radiology Impression KUB X-Ray 08/06/22 08:46 IMPRESSION: Persistent distention of small bowel suggestive of incomplete small bowel obstruction. Electronically Signed: Calvin Leonard MD at 11:33 EDT , Physical Exam Const oriented x3 Resp normal respiratory effort GI soft to palpation and non-tender Assessment & Plan Assessment/Plan (1) Ileus: PLAN: Patient is tolerating regular diet with no abdominal pain and she is having bowel function and the diarrhea is improved. Now that she is tolerating regular diet I recommend stopping IV fluids as the patient is still complaining of a lot of facial swelling as well as upper extremity swelling. I discussed this with the hospitalist. I do not believe there is anything surgically to do for this patient as she is tolerating regular diet with no abdominal pain. Franck Butler MD Pager: [facility] [address] [place] [address], [address] [place] [address] Office:
--- NOTE | 2022-08-07 08:02 | PCM.PN.HOSP ---
Reason for Visit Reason for Visit: Diagnoses Anemia, unspecified (08/04/22) Dehydration (08/04/22) Sialoadenitis, unspecified (08/04/22) Ileus, unspecified (08/04/22) Acute pancreatitis without necrosis or infection, unspecified (08/04/22) Acute kidney failure, unspecified (08/04/22) Unspecified abdominal pain (08/04/22) Diarrhea, unspecified (08/04/22) Personal history of other diseases of the circulatory system (08/04/22) Subjective Subjective Abdomen feeling well. Tolerating PO. Still with facial swelling. No difficulty swallowing. Objective Data Objective Data Vital Signs: Vital Signs Temp Pulse Resp BP Pulse Ox O2 Del Method 37.1 C 70 16 119/54 L 93 Room Air 08/07/22 02:52 08/07/22 02:52 08/07/22 02:52 08/07/22 02:52 08/07/22 02:52 08/07/22 02:52 Oxygen Delivery Method Room Air Weight: 61.5 kg Body Mass Index (BMI) 27.3 Intake & Output: Intake and Output for Last 24 Hours 08/05/22 08/06/22 08/07/22 23:59 23:59 23:59 Intake Total 2276.67 / 2276.67 3003.33 / 3303.33 1792.5 / 1792.5 Output Total 200 / 200 200 / 200 Balance 2076.67 / 2076.67 2803.33 / 3103.33 1792.5 / 1792.5 Lab / Micro Data Result Diagrams: 08/07/22 05:45 08/07/22 05:45 Labs: Laboratory Results - last 24 hr 08/07/22 05:45: WBC 7.9, RBC 2.81 L, Hgb 8.3 L, Hct 26.2 L, MCV 93.2, MCH 29.5, MCHC 31.7 L, RDW Std Deviation 53.9 H, RDW Coeff of Yaw 15.7 H, Plt Count 310, MPV 9.3, Immature Gran % (Auto) 0.900, Neut % (Auto) 81.0 H, Lymph % (Auto) 10.7 L, [place] % (Auto) 6.8, Eos % (Auto) 0.3, Baso % (Auto) 0.3, Absolute Neuts (auto) 6.4, Absolute Lymphs (auto) 0.85, Nucleated RBC % 0 08/07/22 05:45: Sodium 137, Potassium 3.1 L, Chloride 104, Carbon Dioxide 25.0, Anion Gap 8, BUN 16, Creatinine 1.02, Estim Creat Clear Calc 52.67, Est GFR (MDRD) Af Amer 70, Est GFR (MDRD) Non-Af 58 L, BUN/Creatinine Ratio 15.7, Glucose 151 H, Calcium 7.0 L, Total Bilirubin 0.30, AST 14 L, ALT 14, Alkaline Phosphatase 68, Total Protein 5.8 L, Albumin 2.5 L, Globulin 3.3, Albumin/Globulin Ratio 0.8 L Micro: Microbiology 08/06/22 06:00 Stool Enteric Bacteriology - Final 08/06/22 06:00 Stool C. difficile DNA Amplification - Final 08/04/22 17:35 Nasal Secretion SARS-CoV-2 & FLU Antigen (Rapid) - Final Radiography Diagnostic Testing: Radiology Impression KUB X-Ray 08/06/22 08:46 IMPRESSION: Persistent distention of small bowel suggestive of incomplete small bowel obstruction. Electronically Signed: Calvin Leonard MD at 11:33 EDT , Physical Exam Const alert and no apparent distress HEENT HEENT Narrative: cheek swelling bilaterally. submandibular swelling bilaterally. Eyes Eyes Narrative: no icterus Neck Neck Narrative: no thyromegaly. submandibular lymphadenopathy Resp normal respiratory effort, no retractions, no use of accessory muscles and clear to auscultation bilaterally Cardio regular rate, regular rhythm, S1 normal heart sound and S2 normal heart sound GI normal to inspection, nondistended, normoactive bowel sounds and soft to palpation Neuro oriented x3 Assessment & Plan Assessment/Plan (1) Ileus: PLAN: Resolved Impression of abdomen/pelvis CT by radiology: There is a possible ileus of the small bowel. There is no transition point noted. There is gradual normal tapering of the small bowel to a normal diameter at the level of the terminal ileum. Surveillance may be warranted. Small bowel follow-through is negative Tolerating diet (2) Acute pancreatitis: QUALIFIERS: Acute pancreatitis complication: no infection or necrosis Pancreatitis type: unspecified pancreatitis type Qualified Code(s): K85.90 - Acute pancreatitis without necrosis or infection, unspecified PLAN: Acute Pancreatitis Lipase level: 944. Highest lipase previously was 77 Calcium level is normal. Patient has a history of cholecystectomy. Triglycerides elevated, but only 320, therefore, not due to hypertriglyceridemia. Antiemetics and pain control as above. (3) Acute kidney injury: PLAN: Resolved SALVATORE on chronic kidney disease stage IIIa CKD Likely from Diabetic nephropathy Baseline creatinine of 1.2 Creatinine on admission was 1.75 IV hydration as above. Avoid nephrotoxins. (4) Anemia: PLAN: Hg dropped from 12.1 to 8.3 Suspect dilutional. Monitor Iron low at 14, Ferritin normal 63, but does not reule out iron-deficiency. Start ferrous sulfate. (5) Sialoadenitis of submandibular gland: PLAN: CAT scan showed findings suggestive of mild nonspecific Sailoadenitis involving the right submandibular and possibly parotid glands with reactive adenopathy. Patient to have either hard candy or mints to help with this resolution Suspect due to vomiting the patient was having. No stones were identified. Cannot rule out contrast-induced. Check viral panel. Warm compresses, Ketorolac (6) Hypokalemia: PLAN: Replace Check Mag (7) Hypocalcemia: PLAN: Replace Check Mag (8) Hypomagnesemia: PLAN: Complicated K and Ca. Replace PLAN: Plan Chronic conditions: Diabetes mellitus Patient with hyperglycemia on presentation On home Ozempic, basal insulin and correction scale insulin. With patient being n.p.o. decrease dose of home basal insulin (10, down from 30) Accu-Chek with correction scale insulin ordered. History of AfibStable. With ileus we will hold off anticoagulation at this time. Admit to [facility] with telemetry. CAD status post stents Stable N.p.o.. Hold home antiplatelets. Hypertension Blood pressure is not within goal DVT Prophylaxis SCDs ordered Charges/Coding Visit Charges Inpatient E&M: 45988 Subs Hosp L3
[2022-08-07 08:50] LABS: Ferritin 63 ng/mL (8-252); Iron 14 ug/dL (50-170); Iron Binding Capacity,Total 276 ug/dL (250-450); PERCENT IRON SATURATION 5.1 % (15.0-55.0); Thyroid Stim Hormone (TSH) 1.54 uIU/mL (0.358-3.74)
[2022-08-07] MEDS: Carvedilol 6.25 MG Tablet PO ×2 (09:18→16:29)
[2022-08-07] MEDS: Pantoprazole Sodium 40 MG Tablet PO (09:19)
[2022-08-07] MEDS: Divalproex Sodium 125 MG SPRINKLE PO ×2 (09:19→22:06)
[2022-08-07] MEDS: Escitalopram Oxalate 20 MG Tablet PO (09:19)
[2022-08-07] MEDS: Fluticasone 0.05% 1 SPRAY NASAL.SRY 2 SPRAY NASAL ×2 (09:20→22:08)
[2022-08-07 09:28] VITALS: BP 107/57; PULSE 72; RESP 18; TEMP 37.1; O2SAT 95
[2022-08-07] MEDS: Gabapentin 300 MG Capsule 900 MG PO ×2 (09:34→22:12)
[2022-08-07] MEDS: Potassium Chloride Oral Tablet 20 MEQ 60 MEQ PO (09:34)
[2022-08-07] MEDS: Triamterene 37.5MG/Hctz 25MG Capsule 1 CAP PO (09:34)
[2022-08-07] MEDS: TICAGRELOR 90 MG TABLET PO ×2 (09:34→22:06)
[2022-08-07] MEDS: Magnesium Sulfate 4gm/100mL 4 GM/100 ML IV.SOLN. IV (13:10)
[2022-08-07] MEDS: Insulin Lispro 100 UNIT/ML INSULN.PEN SC ×2 (13:11→17:25)
[2022-08-07] MEDS: Ferrous Sulfate 325 MG Tablet PO (13:11)
[2022-08-07 15:00] VITALS: BP 124/52; PULSE 66; RESP 16; TEMP 37.1; O2SAT 97
[2022-08-07 20:33] VITALS: BP 129/57; PULSE 68; RESP 20; TEMP 37.2; O2SAT 98
[2022-08-07 21:00] VITALS: BP 129/57; PULSE 68; RESP 20; TEMP 37.2; O2SAT 98
[2022-08-07] MEDS: Allopurinol 100 MG Tablet PO (22:06)
[2022-08-07] MEDS: Atorvastatin Calcium 80 MG Tablet PO (22:07)
[2022-08-07] MEDS: APIXABAN 5 MG TABLET PO (22:07)
[2022-08-07] MEDS: Insulin Glargine-YFGN 100 UNIT/ML Pen 30 UNIT SC (22:09)
[2022-08-08] MEDS: Acetaminophen 325 MG Tablet 650 MG PO (02:55)
[2022-08-08 03:30] VITALS: BP 127/70; PULSE 70; RESP 20; TEMP 38.4; O2SAT 94
[2022-08-08] MEDS: Levothyroxine 112 MCG Tablet PO (05:37)
[2022-08-08] MEDS: Sucralfate 1 GM Tablet PO (05:38)
[2022-08-08 05:41] VITALS: TEMP 37.1
[2022-08-08 05:53] LABS: Absolute Neutrophil Count 8.7 X10^3/uL (2.0-7.7); Basophil# 0.03 X10^3/uL; Basophil% 0.3 % (0-1); Eosinophil# 0.03 X10^3/uL; Eosinophils% 0.3 % (0-5); Hematocrit 25.3 % (37-47); Hemoglobin 8.2 g/dL (12.0-15.0); Lymphocyte % 7.7 % (19-41); Mean Corp Hgb Conc 32.4 g/dL (32-36); Mean Corpuscular Hgb 29.8 pg (27.0-32.0); Mean Platelet Vol. 9.4 fl (6.2-12.0); Monocyte# 0.75 X10^3/uL; Monocyte% 7.2 % (0-10); NRBC Flagged by Analyzer 0 % (0-5); Neutrophil # 8.67 X10^3/uL (2.7-7.7); Neutrophil % 83.5 % (47-70); Platelet Count 296 K/mm3 (150-450); RBC Distribution Width CV 15.9 % (11.6-14.6); RBC Distribution Width SD 53.2 fl (35.1-43.9); Red Blood Count 2.75 M/mm3 (4.2-5.4); White Blood Count 10.4 K/mm3 (4.4-11.0)
[2022-08-08 06:09] LABS: Anion Gap 7 (5-15); BUN 13 mg/dL (7-18); BUN/Creat Ratio 11.9 RATIO (10-20); Calcium,Total 7.9 mg/dL (8.5-10.1); Chloride 102 mmol/L (98-107); Creatinine, Serum 1.09 mg/dL (0.55-1.02); EST Glomerular Filtration Rate 53 mL/min (>60); Est Glom Filt Rate - Afr Amer 65 mL/min (>60); Estimated Creatinine Clearance 49.29 ml/min; Glucose 112 mg/dL (74-106); Potassium 3.3 mmol/L (3.5-5.1); Sodium Level 135 mmol/L (136-145)
[2022-08-08 08:26] LABS: Vitamin B12 330 pg/mL (211-911); Vitamin D,25 Hydroxy 16.8 ng/mL
[2022-08-08] MEDS: APIXABAN 5 MG TABLET PO (08:40)
[2022-08-08] MEDS: Triamterene 37.5MG/Hctz 25MG Capsule 1 CAP PO (08:40)
[2022-08-08] MEDS: Pantoprazole Sodium 40 MG Tablet PO (08:40)
[2022-08-08] MEDS: Carvedilol 6.25 MG Tablet PO (08:40)
[2022-08-08] MEDS: Divalproex Sodium 125 MG SPRINKLE PO (08:40)
[2022-08-08] MEDS: Losartan Potassium 50 MG Tablet PO (08:41)
[2022-08-08] MEDS: TICAGRELOR 90 MG TABLET PO (08:41)
[2022-08-08] MEDS: Fluticasone 0.05% 1 SPRAY NASAL.SRY 2 SPRAY NASAL (08:41)
[2022-08-08] MEDS: Escitalopram Oxalate 20 MG Tablet PO (08:42)
[2022-08-08] MEDS: Insulin Lispro 100 UNIT/ML INSULN.PEN SC (08:44)
[2022-08-08 09:00] VITALS: BP 120/48; PULSE 53; RESP 18; TEMP 36.9; O2SAT 99
--- NOTE | 2022-08-08 09:04 | PCM.DC.SUM ---
Providers Date of Admission: 08/04/22 Date of Discharge: 08/08/22 Primary Care Physician: Dr. Pat Bennett MD Consultations 08/04/22 21:17 Consult: General Surgery Routine Consulting Provider: Dior Alva Reason for Consult: Ileus EMERGENT Consult: No MD Notified: Yes Date Notified: 08/04/22 Time Notified: 19:58 Method of Notification: Text Reason For Visit: ILEUS,PANCREATITS,SALVATORE Diagnosis Discharge Diagnosis (1) Ileus: Status: Acute Code(s): K56.7 - Ileus, unspecified (2) Acute pancreatitis: Status: Acute Code(s): K85.90 - Acute pancreatitis without necrosis or infection, unspecified Qualifiers: Pancreatitis type: unspecified pancreatitis type Acute pancreatitis complication: no infection or necrosis Qualified Code(s): K85.90 - Acute pancreatitis without necrosis or infection, unspecified (3) Acute kidney injury: Status: Acute Code(s): N17.9 - Acute kidney failure, unspecified (4) Anemia: Status: Acute Code(s): D64.9 - Anemia, unspecified (5) Sialoadenitis of submandibular gland: Status: Acute Code(s): K11.20 - Sialoadenitis, unspecified (6) Hypokalemia: Status: Acute Code(s): E87.6 - Hypokalemia (7) Hypocalcemia: Status: Acute Code(s): E83.51 - Hypocalcemia (8) Hypomagnesemia: Status: Acute Code(s): E83.42 - Hypomagnesemia Medications at Discharge Home Medications blood-glucose meter ([email or web address] Verio Flex Start kit) #1 ea 11/11/20 blood sugar diagnostic ([email or web address] Verio test strips) #300 ea 11/12/20 lancets ([email or web address] UltraSoft Lancets) #300 ea 11/12/20 nitroglycerin 0.4 mg sublingual tablet (Nitrostat) 0.4 mg sublingual Q5-15M PRN chest pain #25 tabs 01/11/21 flash glucose sensor (FreeStyle Marilyn 14 Day Sensor kit) #2 ea 07/26/21 allopurinol 100 mg tablet 100 mg PO QHS gout #90 tabs 10/27/21 pantoprazole 40 mg tablet,delayed release 40 mg PO DAILY gerd #90 tabs 10/27/21 colestipol 1 gram tablet 1 g PO DAILY cholesterol 11/07/21 pen needle, diabetic 31 gauge x 10/04 (Lite Touch Insulin Pen [place]) #100 ea 11/10/21 albuterol sulfate 90 mcg/actuation aerosol inhaler 2 puff inhalation Q6H PRN Wheezing #8.5 grams 12/20/21 sucralfate 1 gram tablet (Carafate) 1 g PO BID Check with primary doctor 01/14/22 pen needle, diabetic 32 gauge x (BD Ultra-Fine Sophia Pen Needle) #100 ea 02/07/22 nystatin 100,000 unit/gram topical powder (Nyamyc) 1 applic topical BID PRN skin infection #30 grams 03/09/22 divalproex 125 mg capsule,delayed release sprinkle 125 mg PO BID bipolar #180 caps 05/18/22 gabapentin 600 mg tablet 900 mg PO BID neuropathy #180 tabs 05/18/22 levothyroxine 112 mcg tablet 112 mcg PO MOTUWETHFR thyroid #90 tabs 05/18/22 apixaban 5 mg tablet (Eliquis) 5 mg PO BID Check with primary doctor 08/04/22 atorvastatin 80 mg tablet 80 mg PO QHS Check with primary doctor 08/04/22 carvedilol 6.25 mg tablet 6.25 mg PO BID Check with primary doctor 08/04/22 escitalopram oxalate 10 mg tablet (Lexapro) 20 mg PO DAILY Check with primary doctor 08/04/22 fluconazole 150 mg tablet (Diflucan) 150 mg PO DAILY PRN infection 08/04/22 insulin glargine 100 unit/mL (3 mL) subcutaneous pen (Lantus Solostar U-100 Insulin) 30 unit subcut QHS Check with primary doctor 08/04/22 insulin lispro 100 unit/mL subcutaneous pen (Humalog KwikPen (U-100) Insulin) 5 unit subcut TID Check with primary doctor 08/04/22 losartan 50 mg tablet 50 mg PO DAILY Check with primary doctor 08/04/22 semaglutide 1 mg/dose (4 mg/3 mL) subcutaneous pen injector (Ozempic) 1 mg subcut QWEEK Check with primary doctor 08/04/22 ticagrelor 90 mg tablet 90 mg PO BID Check with primary doctor 08/04/22 triamterene 37.5 mg-hydrochlorothiazide 25 mg tablet 1 tab PO DAILY bp 08/06/22 Hospital Course Summary of Care Provided Minutes Spent on Discharge: 32 Hospital Course: Patient is a 67-year-old lady who presented with nausea vomiting diagnosed ileus admitted to regular nursing floor for further management 1. Ileus ? Managed conservatively 3. Sialadenitis ? Patient was managed symptomatically 3. Hypokalemia -Corrected per protocol 4. Coronary artery disease ? With previous stent placement 5. Gout ? Patient is on allopurinol did continue 6. Paroxysmal A-fib ? Rate controlled on systemic anticoagulation with Eliquis resumed on discharge 7. Dyslipidemia -Patient is on statin therapy, continued at home dose 8. Diabetes mellitus type II -patient's oral hypoglycemics held. Placed on long acting insulin, Accu-Cheks a.c. and at bedtime and covered with sliding scale insulin 9. Anemia - Secondary to chronic disorder monitoring H&H and transfuse if patient becomes symptomatic or hemoglobin falls below 7 10. Acute kidney injury ? Superimposed on chronic kidney disease stage IIIa managed IV fluid with subsequent monitoring of electrolyte 11. Hypertension - Blood pressure controlled, home medications continued with dose adjustment as needed Physical Exam Narrative GENERAL: cooperative HEENT: Atraumatic; normocephalic EYES; Anicteric, Normal Conjunctiva NECK; supple, normal thyroid, RESPIRATORY: Diminished to auscultation CARDIOVASCULAR: Regular S1 S2, GI: soft, normoactive bowel sounds, : No Renal angle tenderness; EXTREMITIES: No edema, no clubbing, MUSCULOSKELETAL: no muscle wasting NEURO: Awake; no lateralizing signs. SKIN: No Rash PSYCH; Flat affect Weight / BMI Weight Weight: 61.5 kg Body Mass Index (BMI) 27.3 ABG / Lab / Microbiology Data Result Diagrams: 08/08/22 05:20 08/08/22 05:20 Laboratory: Laboratory Results - last 24 hr 08/07/22 08:40: Vitamin B12 330, Vitamin D 25-Hydroxy 16.8 08/08/22 05:20: WBC 10.4, RBC 2.75 L, Hgb 8.2 L, Hct 25.3 L, MCV 92.0, MCH 29.8, MCHC 32.4, RDW Std Deviation 53.2 H, RDW Coeff of Yaw 15.9 H, Plt Count 296, MPV 9.4, Immature Gran % (Auto) 1.000 H, Neut % (Auto) 83.5 H, Lymph % (Auto) 7.7 L, [place] % (Auto) 7.2, Eos % (Auto) 0.3, Baso % (Auto) 0.3, Absolute Neuts (auto) 8.7 H, Absolute Lymphs (auto) 0.80 L, Nucleated RBC % 0 08/08/22 05:20: Sodium 135 L, Potassium 3.3 L, Chloride 102, Carbon Dioxide 26.0, Anion Gap 7, BUN 13, Creatinine 1.09 H, Estim Creat Clear Calc 49.29, Est GFR (MDRD) Af Amer 65, Est GFR (MDRD) Non-Af 53 L, BUN/Creatinine Ratio 11.9, Glucose 112 H, Calcium 7.9 L, Magnesium 2.0 Microbiology: Microbiology 08/06/22 06:00 Stool Enteric Bacteriology - Final 08/06/22 06:00 Stool C. difficile DNA Amplification - Final 08/04/22 17:35 Nasal Secretion SARS-CoV-2 & FLU Antigen (Rapid) - Final D/C Instructions Discharge Diet: 1800 Calorie Control Diet Discharge Activity: Return to Normal Activity Call your doctor if you observe: Fever of 101 or Higher, Shortness of breath, Fainting spells and Chest pain Meaningful Use Info Meaningful Use Diagnoses (Choose all that apply): None applicable Discharge Plan Admission Admit Date/Time: 08/04/22 19:30 Attending Provider: Bassem Schwartz Primary Care Provider: Pat Bennett Consulting Providers: Dior Alva ; Daljit Mg ; Carrillo Buckley Discharge Orders/Prescriptions Prescriptions: Continued nitroglycerin [Nitrostat] 0.4 mg tablet, sublingual 0.4 mg sublingual Q5-15M PRN (Reason: chest pain) Qty: 25 3RF Rx Instructions: do not exceed 3 doses per episode sucralfate [Carafate] 1 gram tablet 1 g PO BID (DME) FreeStyle Marilyn 14 Day Sensor Kit See Rx Instructions .ROUTE .MEDSUPPLY Qty: 2 6RF Rx Instructions: As directed (DME) pen needle, diabetic [BD Ultra-Fine Sophia Pen Needle] 32 gauge x 5/32 needle See Rx Instructions .Route Qty: 100 5RF Rx Instructions: TID colestipol 1 gram Tablet 1 g PO DAILY losartan 50 mg tablet 50 mg PO DAILY atorvastatin 80 mg tablet 80 mg PO QHS Rx Instructions: cholesterol carvedilol 6.25 mg tablet 6.25 mg PO BID Rx Instructions: must administer with a meal/food fluconazole [Diflucan] 150 mg tablet 150 mg PO DAILY PRN (Reason: infection) Rx Instructions: administer on day 1 of therapy insulin lispro [Humalog KwikPen Insulin] 100 unit/mL insulin pen 5 unit subcut TID escitalopram oxalate [Lexapro] 10 mg tablet 20 mg PO DAILY insulin glargine [Lantus Solostar U-100 Insulin] 100 unit/mL (3 mL) insulin pen 30 unit subcut QHS ticagrelor 90 mg tablet 90 mg PO BID Eliquis 5 mg tablet 5 mg PO BID Ozempic 1 mg/dose (4 mg/3 mL) pen injector 1 mg subcut QWEEK Rx Instructions: q wed triamterene-hydrochlorothiazid 37.5-25 mg tablet 1 tab PO DAILY (DME) blood-glucose meter [OneTouch Verio Flex Start] Kit See Rx Instructions .ROUTE .MEDSUPPLY Qty: 1 0RF Rx Instructions: Twice daily and as needed (DME) OneTouch Verio test strips Strip See Rx Instructions .ROUTE .MEDSUPPLY Qty: 300 3RF Rx Instructions: Check 3 times a day and as needed (DME) lancets [OneTouch UltraSoft Lancets] Misc See Rx Instructions .ROUTE .MEDSUPPLY Qty: 300 3RF Rx Instructions: Check 3 times a day and as needed allopurinol 100 mg tablet 100 mg PO QHS Qty: 90 3RF pantoprazole 40 mg tablet,delayed release (DR/EC) 40 mg PO DAILY Qty: 90 3RF (DME) pen needle, diabetic [Lite Touch Insulin Pen [place]] 31 gauge x 5/16 needle See Rx Instructions .ROUTE .MEDSUPPLY Qty: 100 4RF Rx Instructions: As directed albuterol sulfate 90 mcg/actuation HFA aerosol inhaler 2 puff INHALATION Q6H PRN (Reason: Wheezing) Qty: 8.5 6RF nystatin [Nyamyc] 100,000 unit/gram powder 1 applic topical BID PRN (Reason: skin infection) Qty: 30 1RF divalproex 125 mg capsule, delayed rel sprinkle 125 mg PO BID Qty: 180 3RF gabapentin 600 mg tablet 900 mg PO BID Qty: 180 3RF levothyroxine 112 mcg tablet 112 mcg PO MOTUWETHFR Qty: 90 3RF Referrals / Follow Up: Pat Bennett MD [Primary Care Provider] - Within 1 Week Disposition Disposition (needs filled in before D/C Order can be placed): Home, Self Care Charges/Coding Visit Charges Inpatient E&M: 42077 Disch Hosp >30min
[2022-08-08] MEDS: Gabapentin 300 MG Capsule 900 MG PO (09:37)
[2022-08-08] MEDS: Potassium Chloride Oral Tablet 20 MEQ PO (09:37)
[2022-08-08 09:48] VITALS: BP 120/48; PULSE 53; RESP 18; TEMP 36.9; O2SAT 99
--- NOTE | 2022-08-08 10:50 | CASEMGMT ---
WU CM: Face to face with pt at bedside. Pt declines any discharge needs or concerns at this time. Plan: return home with the support of daughter and friends. Lyndsay Ulloa RN CM
== END 2022-08-08 13:31 | disposition home or self-care (01) | DRG 388 ==
LOC: ED 19:23 → MS3 20:03
PROVIDERS: Surgery; Admitting Provider Hospitalist; Emergency Provider Emergency Medicine; PCP Internal Medicine; Visit Provider Internal Medicine
DX: K56.7 Ileus, unspecified (principal); K85.90 Acute pancreatitis without necrosis or infection, unspecified; N17.9 Acute kidney failure, unspecified; E83.51 Hypocalcemia; E11.22 Type 2 diabetes mellitus with diabetic chronic kidney disease; A08.4 Viral intestinal infection, unspecified; E11.42 Type 2 diabetes mellitus with diabetic polyneuropathy; D64.9 Anemia, unspecified; I48.0 Paroxysmal atrial fibrillation; E86.0 Dehydration; F31.9 Bipolar disorder, unspecified; Z79.4 Long term (current) use of insulin; E11.65 Type 2 diabetes mellitus with hyperglycemia; N18.31 Chronic kidney disease, stage 3a; I25.10 Atherosclerotic heart disease of native coronary artery without angina pectoris; I12.9 Hypertensive chronic kidney disease with stage 1 through stage 4 chronic kidney disease, or unspecified chronic kidney disease; K11.20 Sialoadenitis, unspecified; E87.6 Hypokalemia; E83.42 Hypomagnesemia; M10.9 Gout, unspecified; E78.5 Hyperlipidemia, unspecified; F17.210 Nicotine dependence, cigarettes, uncomplicated; Z79.01 Long term (current) use of anticoagulants; Z95.5 Presence of coronary angioplasty implant and graft; Z79.02 Long term (current) use of antithrombotics/antiplatelets; Z20.822 Contact with and (suspected) exposure to COVID-19; Z79.899 Other long term (current) drug therapy; Z90.49 Acquired absence of other specified parts of digestive tract
CPT/HCPCS: 36415; 70491; 71045; 74018; 74177; 74250; 80048; 80053; 80061; 82306; 82607; 82728; 83540; 83550; 83690; 83735; 84443; 85025; 87428; 87493; 87506; 99285; J7030; J7050; J7120; Q9967; A4216; J0610; J2405; J2916

== ENCOUNTER → 2022-08-17 | Outpatient (CLI) | payer MEDICARE, MEDICAID, SELFPAY ==
[2020-06-04 12:24] VITALS: BMI 26.4
[2022-08-17 12:31] LABS: Absolute Lymphocyte Count 2.04 X10^3/uL (0.83-4.51); Basophil# 0.08 X10^3/uL; Basophil% 0.8 % (0-1); Eosinophil# 0.17 X10^3/uL; Eosinophils% 1.7 % (0-5); Hematocrit 34.2 % (37-47); Hemoglobin 10.5 g/dL (12.0-15.0); Lymphocyte # 2.04 X10^3/ul (0.83-4.51); Lymphocyte % 19.8 % (19-41); Mean Corp Hgb Conc 30.7 g/dL (32-36); Mean Corpuscular Hgb 29.7 pg (27.0-32.0); Mean Corpuscular Volume 96.6 fL (81-99); Mean Platelet Vol. 9.2 fl (6.2-12.0); Monocyte# 0.85 X10^3/uL; Monocyte% 8.3 % (0-10); NRBC Flagged by Analyzer 0 % (0-5); Neutrophil # 6.99 X10^3/uL (2.7-7.7); Neutrophil % 67.7 % (47-70); Platelet Count 606 K/mm3 (150-450); RBC Distribution Width CV 16.6 % (11.6-14.6); RBC Distribution Width SD 58.4 fl (35.1-43.9); Red Blood Count 3.54 M/mm3 (4.2-5.4); White Blood Count 10.3 K/mm3 (4.4-11.0)
[2022-08-17 12:49] LABS: ALB/GLOB Ratio 0.7 RATIO (0.9-2.4); AST(SGOT) 13 U/L (15-37); Alanine Aminotransfer ALT/SGPT 30 U/L (13-56); Albumin, Serum 3.2 g/dL (3.2-5.0); Alkaline Phosphatase 107 U/L (45-117); Anion Gap 12 (5-15); BUN 29 mg/dL (7-18); BUN/Creat Ratio 20.9 RATIO (10-20); Calcium,Total 8.8 mg/dL (8.5-10.1); Chloride 102 mmol/L (98-107); Cholesterol 167 mg/dL (200); Creatinine, Serum 1.39 mg/dL (0.55-1.02); EST Glomerular Filtration Rate 40 mL/min (>60); Est Glom Filt Rate - Afr Amer 49 mL/min (>60); Globulin 4.4 g/dL (2.2-4.2); Glucose 222 mg/dL (74-106); High Density Lipoprotein 41 mg/dL; Phosphorus 3.5 mg/dL (2.5-4.9); Potassium 4.5 mmol/L (3.5-5.1); Protein, Total 7.6 g/dL (6.4-8.2); Sodium Level 135 mmol/L (136-145); Triglycerides 306 mg/dL; Very Low Density Lipoprotein 61 mg/dL (5-40)
== END | disposition home or self-care (01) ==
LOC: BIMLAB 08:37
PROVIDERS: Nurse Practitioner Family; PCP Internal Medicine; Referring Provider Internal Medicine Nephrology; Visit Provider Internal Medicine Nephrology
DX: N18.2 Chronic kidney disease, stage 2 (mild) (principal); E11.22 Type 2 diabetes mellitus with diabetic chronic kidney disease; R94.39 Abnormal result of other cardiovascular function study; D64.9 Anemia, unspecified; R10.9 Unspecified abdominal pain; E78.5 Hyperlipidemia, unspecified
CPT/HCPCS: 36415; 80053; 80061; 82248; 84100; 85025

== ENCOUNTER 2022-09-15 15:43 | Emergency (ER) | payer MEDICARE, MEDICAID, SELFPAY ==
[2020-06-04 12:24] VITALS: BMI 26.4
[2022-09-15 15:44] VITALS: PULSE 75; RESP 27; TEMP 36.6; O2SAT 98; BMI 27.7
[2022-09-15 15:48] VITALS: BP 184/60
--- NOTE | 2022-09-15 16:10 | EX.ED.DYSGE1 ---
HPI History of Present Illness Chief Complaint: Allergic Reaction Narrative Narrative: Patient presenting today out of concern for allergic reaction. Patient notes that she used a new soap on her face and body and noticed that she had a rash on her face only. She denies any other soaps, dyes, linens, detergents, make-up or anything else she could have used on her face to make her face red. She does not have a rash elsewhere. She states that today she felt a little bit short of breath and since Monday she had a couple episodes of nausea and vomiting. She does not think she had a fever. She did feel short of breath earlier but states EMS gave her treatment for allergic reaction and she feels improved currently. [facility] Medical History Acute kidney injury superimposed on chronic kidney disease Atherosclerotic heart disease of [place] coronary artery without angina pectoris Atrial fibrillation Bipolar disorder Chest congestion Chronic pancreatic insufficiency Dehydration Depression Diabetes Essential hypertension Fibromyalgia affecting multiple sites Generalized OA Gout Hiatal hernia Hip pain, bilateral Hypertension Hypomagnesemia Hypotension Hypothyroidism Near syncope Overweight (BMI 25.0-29.9) Polyneuropathy due to type 2 diabetes mellitus Pre-op evaluation Shoulder pain, bilateral Tachybradycardia syndrome 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 GFR 30-59 Umbilical hernia Home Medications blood-glucose meter (DIIME Verio Flex Start kit) #1 ea 11/11/20 [Rx Last Taken Unknown] blood sugar diagnostic (HelixbindTouch Verio test strips) #300 ea 11/12/20 [Rx Last Taken Unknown] lancets (HelixbindTouch UltraSoft Lancets) #300 ea 11/12/20 [Rx Last Taken Unknown] nitroglycerin 0.4 mg sublingual tablet (Nitrostat) 0.4 mg sublingual Q5-15M PRN chest pain #25 tabs 01/11/21 [Rx Last Taken Unknown] flash glucose sensor (FreeStyle Marilyn 14 Day Sensor kit) #2 ea 07/26/21 [Rx Last Taken Unknown] allopurinol 100 mg tablet 100 mg PO QHS gout #90 tabs 10/27/21 [Rx Last Taken 08/03/22] colestipol 1 gram tablet 1 g PO DAILY cholesterol 11/07/21 [History Last Taken 08/03/22] albuterol sulfate 90 mcg/actuation aerosol inhaler 2 puff inhalation Q6H PRN Wheezing #8.5 grams 12/20/21 [Rx Last Taken 07/30/22] pen needle, diabetic 32 gauge x 5/32 (BD Ultra-Fine Sophia Pen Needle) #100 ea 02/07/22 [Rx Last Taken Unknown] nystatin 100,000 unit/gram topical powder (Nyamyc) 1 applic topical BID PRN skin infection #30 grams 03/09/22 [Rx Last Taken Unknown] divalproex 125 mg capsule,delayed release sprinkle 125 mg PO BID bipolar #180 caps 05/18/22 [Rx Last Taken 08/03/22] gabapentin 600 mg tablet 900 mg PO BID neuropathy #180 tabs 05/18/22 [Rx Last Taken 08/03/22] levothyroxine 112 mcg tablet 112 mcg PO MOTUWETHFR thyroid #90 tabs 05/18/22 [Rx Last Taken 08/04/22] apixaban 5 mg tablet (Eliquis) 5 mg PO BID Check with primary doctor 08/04/22 [History Last Taken 08/03/22] carvedilol 6.25 mg tablet 6.25 mg PO BID Check with primary doctor 08/04/22 [History Last Taken 08/03/22] escitalopram oxalate 10 mg tablet (Lexapro) 20 mg PO DAILY Check with primary doctor 08/04/22 [History Last Taken 08/03/22] fluconazole 150 mg tablet (Diflucan) 150 mg PO DAILY PRN infection 08/04/22 [History Last Taken Unknown] insulin glargine 100 unit/mL (3 mL) subcutaneous pen (Lantus Solostar U-100 Insulin) 30 unit subcut QHS Check with primary doctor 08/04/22 [History Last Taken 08/03/22] insulin lispro 100 unit/mL subcutaneous pen (Humalog KwikPen (U-100) Insulin) 5 unit subcut TID Check with primary doctor 08/04/22 [History Last Taken 08/03/22] ticagrelor 90 mg tablet 90 mg PO BID Check with primary doctor 08/04/22 [History Last Taken 08/03/22] losartan 50 mg tablet 50 mg PO DAILY Check with primary doctor #90 tabs 08/10/22 [Rx Last Taken Unknown] dapagliflozin 10 mg tablet (Farxiga) 10 mg PO QAM #90 tabs 08/17/22 [Rx Last Taken Unknown] ergocalciferol (vitamin D2) 1,250 mcg (50,000 unit) capsule 50,000 unit PO QWEEK #12 caps 08/17/22 [Rx Last Taken Unknown] ferrous sulfate 324 mg (65 mg iron) tablet,delayed release 324 mg PO DAILY #90 tabs 08/17/22 [Rx Last Taken Unknown] pen needle, diabetic 31 gauge x 5/16 (Lite Touch Insulin Pen [place]) #400 ea 08/26/22 [Rx Last Taken Unknown] atorvastatin 80 mg tablet 80 mg PO QHS Hyperlipidemia #90 tabs 08/29/22 [Rx Last Taken Unknown] pantoprazole 40 mg tablet,delayed release 40 mg PO DAILY gerd #90 tabs 08/29/22 [Rx Last Taken Unknown] triamterene 37.5 mg-hydrochlorothiazide 25 mg tablet 1 tab PO DAILY bp #90 tabs 09/07/22 [Rx Last Taken Unknown] diphenhydramine HCl 25 mg capsule (Benadryl) 25 mg PO TID PRN allergic reaction #10 caps 09/15/22 [Rx Last Taken Unknown] epinephrine 0.3 mg/0.3 mL injection, auto-injector 0.3 mg (0.3 mL) IM Q4H PRN anaphylaxis #2 ea 09/15/22 [Rx Last Taken Unknown] prednisone 10 mg tablet 40 mg PO DAILY 3 days #12 tabs 09/15/22 [Rx Last Taken Unknown] Allergy/AdvReac Type Severity Reaction Status Date / Time duloxetine [From Cymbalta] Allergy Itching Verified 08/17/22 07:59 tomato Allergy Itching Verified 08/17/22 07:59 isosorbide AdvReac Intermediate Other Verified 08/17/22 07:59 adhesive tape [plastic tape] AdvReac Rash Verified 08/17/22 07:59 Family History Sister COPD (chronic obstructive pulmonary disease) Mother COPD (chronic obstructive pulmonary disease) Hypertension Alzheimer's dementia without behavioral disturbance Alzheimer's dementia Father Diabetes Hypertension Myocardial infarction Surgical History History of laparoscopic appendectomy History of total abdominal hysterectomy Hx of cholecystectomy Hx of shoulder surgery Presence of stent in coronary artery (~04/18/22) Social History Smoking Status: Current every day smoker tobacco type: cigarettes alcohol intake: never substance use type: does not use caffeine: No what type of physical activity do you participate in: none ROS ROS ED Constitutional Constitutional ED: Denies chills or fever(s) Eyes Eyes: Denies change in vision or diplopia ENT ENT ED: Denies rhinorrhea or sore throat Cardiovascular Cardiovascular: Denies chest pain or palpitations Respiratory/Chest Respiratory/Chest: Reports dyspnea, sputum and other; Denies cough Gastrointestinal Gastrointestinal: Reports nausea and vomiting; Denies abdominal pain Genitourinary Genitourinary ED: Denies dysuria or hematuria Musculoskeletal Musculoskeletal: Denies arthralgias Integumentary Denies abscess Neurologic Neurologic: Denies headache(s) Psychiatric Psychiatric: Denies anxiety or depression EXAM Physical Exam Const Vital Signs: 09/15/22 15:44 09/15/22 15:48 09/15/22 16:57 Temperature 97.9 F Temperature Source Temporal Pulse Rate 75 79 Respiratory Rate 27 H Blood Pressure 184/60 H 147/78 H Blood Pressure Mean 101 101 Pulse Ox 98 96 Oxygen Delivery Method Room Air Room Air 09/15/22 17:56 Temperature Temperature Source Pulse Rate 70 Respiratory Rate 24 H Blood Pressure Blood Pressure Mean Pulse Ox 94 Oxygen Delivery Method Room Air Positive well nourished General Appearance ED: NAD [place] Narrative: Cheeks and forehead appear erythematous. There is mildly increased warmth in these regions. The rash is symmetrical. Eyes PERRL and EOMs intact bilaterally Neck no lymphadenopathy Chest Wall inspection of chest normal Resp normal respiratory effort and clear to auscultation bilaterally Cardio regular rate and regular rhythm GI normal to inspection, nondistended, normoactive bowel sounds Neuro oriented x3 and CN's II-XII intact bilaterally Sensorium / Orientation: alert Motor Exam: strength 5/5 throughout Psych mental status grossly normal Skin Skin Narrative: As described above MDM MDM MDM Narrative Medical decision making narrative: Patient initially presented for allergic reaction. She states that she was given treatment for allergic reaction prior to arrival. She did have some dyspnea today which improved after treatment. She had a rash on her face for 2 days. She states that EMS noted that she had rash all over her body although I only appreciate this on the face. Patient then told me she has had some nausea and vomiting since Monday intermittently. Differential includes anaphylaxis, hypoglycemia, hyperglycemia, electrolyte abnormality, dehydration, Depakote toxicity, pancreatitis. It does appear that the patient was given Solu-Medrol 125, Benadryl 25 mg, 0.3 of epinephrine pen. Did obtain basic lab work. Patient has leukocytosis of 15.1. Hemoglobin macular stable. Platelets slightly high. Creatinine near baseline. Electrolytes unremarkable. LFTs unremarkable. Lipase negative. Urinalysis inconsistent with infection. Depakote level is subtherapeutic. I did obtain a chest x-ray which was negative for acute cardiopulmonary process on my interpretation. Radiologist interprets this and agrees. Reevaluation at 7:20 PM the patient is doing well. Her erythema on her face is improved. Her vital signs are stable she is afebrile. I counseled the patient I was going to send her home on a couple days of prednisone, Benadryl, and an epinephrine pen just in case. Patient states she is diabetic but knows how to adjust her insulin for her hyperglycemia. Return precautions were discussed. Impression: 1. Anaphylaxis 2. Leukocytosis Lab Data Labs: Laboratory Results - last 24 hr 09/15/22 09/15/22 09/15/22 16:13 16:13 16:40 WBC 15.1 H RBC 3.81 L Hgb 11.6 L Hct 36.5 L MCV 95.8 MCH 30.4 MCHC 31.8 L RDW Std Deviation 59.0 H RDW Coeff of Yaw 16.6 H Plt Count 490 H MPV 9.6 Immature Gran % (Auto) 0.500 Neut % (Auto) 80.4 H Lymph % (Auto) 12.8 L Ross % (Auto) 5.7 Eos % (Auto) 0.3 Baso % (Auto) 0.3 Absolute Neuts (auto) 12.1 H Absolute Lymphs (auto) 1.93 Nucleated RBC % 0 Sodium 134 L Potassium 3.6 Chloride 105 Carbon Dioxide 18.0 L Anion Gap 11 BUN 27 H Creatinine 1.07 H Estim Creat Clear Calc 50.87 Est GFR (MDRD) Af Amer 66 Est GFR (MDRD) Non-Af 55 L BUN/Creatinine Ratio 25.2 H Glucose 199 H Calcium 9.0 Total Bilirubin 0.40 AST 14 L ALT 20 Alkaline Phosphatase 93 Total Protein 8.1 Albumin 3.2 Globulin 4.9 H Albumin/Globulin Ratio 0.7 L Lipase 56 Urine Color Yellow Urine Clarity Clear Urine pH 5.0 Ur Specific [place] 1.020 Urine Protein 100 H Urine Glucose (UA) 1000 H Urine Ketones 50 H Urine Occult Blood 25 H Urine Nitrite Negative Urine Bilirubin Negative Urine Urobilinogen Normal Ur Leukocyte Esterase Negative Urine RBC 0 SEEN Urine WBC 0 SEEN Ur Squamous Epith Cells 0-5 SEEN Urine Bacteria 0 SEEN Urine Mucus 0 SEEN Urine Yeast 2+ Valproic Acid 09/15/22 16:40 WBC RBC Hgb Hct MCV MCH MCHC RDW Std Deviation RDW Coeff of Yaw Plt Count MPV Immature Gran % (Auto) Neut % (Auto) Lymph % (Auto) Ross % (Auto) Eos % (Auto) Baso % (Auto) Absolute Neuts (auto) Absolute Lymphs (auto) Nucleated RBC % Sodium Potassium Chloride Carbon Dioxide Anion Gap BUN Creatinine Estim Creat Clear Calc Est GFR (MDRD) Af Amer Est GFR (MDRD) Non-Af BUN/Creatinine Ratio Glucose Calcium Total Bilirubin AST ALT Alkaline Phosphatase Total Protein Albumin Globulin Albumin/Globulin Ratio Lipase Urine Color Urine Clarity Urine pH Ur Specific [place] Urine Protein Urine Glucose (UA) Urine Ketones Urine Occult Blood Urine Nitrite Urine Bilirubin Urine Urobilinogen Ur Leukocyte Esterase Urine RBC Urine WBC Ur Squamous Epith Cells Urine Bacteria Urine Mucus Urine Yeast Valproic Acid 12 L Radiography Diagnostic Testing: Clinical Impression(s) from Imaging Studies Chest X-Ray 09/15/22 16:50 IMPRESSION: No evidence of acute cardiopulmonary process. Electronically Signed: Chalino Holcomb DO at 17:03 EDT , Discharge Plan Triage Chief Complaint: Allergic Reaction ED Provider: Jozef Brar Dx/Rx/DC Orders Prescriptions: New prednisone 10 mg tablet 40 mg PO DAILY 3 Days Qty: 12 0RF diphenhydramine HCl [Benadryl] 25 mg capsule 25 mg PO TID PRN (Reason: allergic reaction) Qty: 10 0RF epinephrine 0.3 mg/0.3 mL auto-injector 0.3 mg IM Q4H PRN (Reason: anaphylaxis) Qty: 2 0RF No Action nitroglycerin [Nitrostat] 0.4 mg tablet, sublingual 0.4 mg sublingual Q5-15M PRN (Reason: chest pain) Qty: 25 3RF Rx Instructions: do not exceed 3 doses per episode (DME) FreeStyle Marilyn 14 Day Sensor Kit See Rx Instructions .ROUTE .MEDSUPPLY Qty: 2 6RF Rx Instructions: As directed (DME) pen needle, diabetic [BD Ultra-Fine Sophia Pen Needle] 32 gauge x 5/32 needle See Rx Instructions .Route Qty: 100 5RF Rx Instructions: TID ergocalciferol (vitamin D2) 1,250 mcg (50,000 unit) capsule 50,000 unit PO QWEEK Qty: 12 0RF ferrous sulfate 324 mg (65 mg iron) tablet,delayed release (DR/EC) 324 mg PO DAILY Qty: 90 1RF Farxiga 10 mg tablet 10 mg PO QAM Qty: 90 3RF colestipol 1 gram Tablet 1 g PO DAILY carvedilol 6.25 mg tablet 6.25 mg PO BID Rx Instructions: must administer with a meal/food fluconazole [Diflucan] 150 mg tablet 150 mg PO DAILY PRN (Reason: infection) Rx Instructions: administer on day 1 of therapy insulin lispro [Humalog KwikPen Insulin] 100 unit/mL insulin pen 5 unit subcut TID escitalopram oxalate [Lexapro] 10 mg tablet 20 mg PO DAILY insulin glargine [Lantus Solostar U-100 Insulin] 100 unit/mL (3 mL) insulin pen 30 unit subcut QHS ticagrelor 90 mg tablet 90 mg PO BID Eliquis 5 mg tablet 5 mg PO BID (DME) blood-glucose meter [OneTouch Verio Flex Start] Kit See Rx Instructions .ROUTE .MEDSUPPLY Qty: 1 0RF Rx Instructions: Twice daily and as needed (DME) OneTouch Verio test strips Strip See Rx Instructions .ROUTE .MEDSUPPLY Qty: 300 3RF Rx Instructions: Check 3 times a day and as needed (DME) lancets [OneTouch UltraSoft Lancets] Misc See Rx Instructions .ROUTE .MEDSUPPLY Qty: 300 3RF Rx Instructions: Check 3 times a day and as needed allopurinol 100 mg tablet 100 mg PO QHS Qty: 90 3RF albuterol sulfate 90 mcg/actuation HFA aerosol inhaler 2 puff INHALATION Q6H PRN (Reason: Wheezing) Qty: 8.5 6RF nystatin [Nyamyc] 100,000 unit/gram powder 1 applic topical BID PRN (Reason: skin infection) Qty: 30 1RF divalproex 125 mg capsule, delayed rel sprinkle 125 mg PO BID Qty: 180 3RF gabapentin 600 mg tablet 900 mg PO BID Qty: 180 3RF levothyroxine 112 mcg tablet 112 mcg PO MOTUWETHFR Qty: 90 3RF losartan 50 mg tablet 50 mg PO DAILY Qty: 90 3RF (DME) pen needle, diabetic [Lite Touch Insulin Pen [place]] 31 gauge x 5/16 needle See Rx Instructions .ROUTE .MEDSUPPLY Qty: 400 3RF Rx Instructions: 4 times dailly atorvastatin 80 mg tablet 80 mg PO QHS Qty: 90 3RF Rx Instructions: cholesterol pantoprazole 40 mg tablet,delayed release (DR/EC) 40 mg PO DAILY Qty: 90 3RF triamterene-hydrochlorothiazid 37.5-25 mg tablet 1 tab PO DAILY Qty: 90 3RF Primary Care Provider: Josesito Delgado NP Referrals: Josesito Delgado NP, SERVICES ENGINEER-C [Primary Care Provider] - Disposition Disposition: Home, Self Care
[2022-09-15 16:18] LABS: Absolute Lymphocyte Count 1.93 X10^3/uL (0.83-4.51); Absolute Neutrophil Count 12.1 X10^3/uL (2.0-7.7); Basophil# 0.05 X10^3/uL; Basophil% 0.3 % (0-1); Eosinophil# 0.04 X10^3/uL; Eosinophils% 0.3 % (0-5); Hematocrit 36.5 % (37-47); Hemoglobin 11.6 g/dL (12.0-15.0); Lymphocyte # 1.93 X10^3/ul (0.83-4.51); Lymphocyte % 12.8 % (19-41); Mean Corp Hgb Conc 31.8 g/dL (32-36); Mean Corpuscular Hgb 30.4 pg (27.0-32.0); Mean Corpuscular Volume 95.8 fL (81-99); Mean Platelet Vol. 9.6 fl (6.2-12.0); Monocyte# 0.86 X10^3/uL; Monocyte% 5.7 % (0-10); NRBC Flagged by Analyzer 0 % (0-5); Neutrophil # 12.12 X10^3/uL (2.7-7.7); Neutrophil % 80.4 % (47-70); Platelet Count 490 K/mm3 (150-450); RBC Distribution Width CV 16.6 % (11.6-14.6); Red Blood Count 3.81 M/mm3 (4.2-5.4); White Blood Count 15.1 K/mm3 (4.4-11.0)
[2022-09-15 16:40] LABS: ALB/GLOB Ratio 0.7 RATIO (0.9-2.4); AST(SGOT) 14 U/L (15-37); Alanine Aminotransfer ALT/SGPT 20 U/L (13-56); Albumin, Serum 3.2 g/dL (3.2-5.0); Alkaline Phosphatase 93 U/L (45-117); Anion Gap 11 (5-15); BUN 27 mg/dL (7-18); BUN/Creat Ratio 25.2 RATIO (10-20); Chloride 105 mmol/L (98-107); Creatinine, Serum 1.07 mg/dL (0.55-1.02); EST Glomerular Filtration Rate 55 mL/min (>60); Est Glom Filt Rate - Afr Amer 66 mL/min (>60); Estimated Creatinine Clearance 50.87 ml/min; Globulin 4.9 g/dL (2.2-4.2); Glucose 199 mg/dL (74-106); Lipase 56 U/L (13-75); Potassium 3.6 mmol/L (3.5-5.1); Protein, Total 8.1 g/dL (6.4-8.2); Sodium Level 134 mmol/L (136-145)
[2022-09-15] MEDS: Ondansetron 4 MG/2 ML Vial IV (16:43)
[2022-09-15 16:50] LABS: Bacteria 0 SEEN /hpf (None Seen); Mucous, Urine 0 SEEN /hpf (<or=2+); Red Blood Cells-Urine 0 SEEN /hpf (0-5); White Blood Cells 0 SEEN /hpf (0-5)
--- NOTE | 2022-09-15 16:50 | RAD_ITS ---
STUDY: X-RAY CHEST REASON FOR EXAM: Female, 67 years old. dyspnea TECHNIQUE: Single PA view of the chest. COMPARISON: 08/04/2022 FINDINGS: The lungs are clear and expanded. There is no demonstrated pleural abnormality. Normal size heart. Normal mediastinum and rita. Normal visualized pulmonary arteries. Normal visualized aortic arch and descending thoracic aorta. Normal visualized thoracic spine. Normal visualized ribs, clavicles, and shoulders. There is no demonstrated abnormality of the visualized soft tissue structures of the upper abdomen. RAD/Chest 1 View (Portable) IMPRESSION: No evidence of acute cardiopulmonary process. Electronically Signed: Chalino Holcomb DO at 17:03 EDT ,
[2022-09-15 16:56] LABS: Color, Urine Yellow (Yellow); Glucose, Dipstick 1000 mg/dl (Normal); Ketone-Dipstick 50 mg/dl (Negative); Leukocyte Esterase-Dipstick Negative /ul (Negative); Nitrite-Dipstick Negative (Negative); Occult Blood-Urine 25 /ul (Negative); Protein-Dipstick 100 mg/dl (Negative); Urine Bilirubin Dipstick Negative (Negative); Urine Clarity Clear (Clear); Urine Urobilinogen Normal (Normal)
[2022-09-15 16:57] VITALS: BP 147/78; PULSE 79; O2SAT 96
[2022-09-15] MEDS: Famotidine 200 MG/20 ML MDV 20 MG in 0.9% Normal Saline (Pres. free 8 ML 300 MG IV (17:02)
[2022-09-15 17:03] LABS: Squamous Epithelial Cells - UA 0-5 SEEN /hpf (5-10); Yeast-Urine 2+ /hpf (None Seen)
[2022-09-15 17:56] VITALS: PULSE 70; RESP 24; O2SAT 94
[2022-09-15 18:15] LABS: Valproic Acid (Depakene) Level 12 ug/mL (50-100)
== END 2022-09-15 19:45 | disposition home or self-care (01) ==
PROVIDERS: Emergency Provider Student in an Organized Health Care Education/Training Program; PCP Nurse Practitioner Family; Visit Provider Student in an Organized Health Care Education/Training Program
DX: T78.2XXA Anaphylactic shock, unspecified, initial encounter (principal); E11.42 Type 2 diabetes mellitus with diabetic polyneuropathy; E11.22 Type 2 diabetes mellitus with diabetic chronic kidney disease; N18.30 Chronic kidney disease, stage 3 unspecified; I25.10 Atherosclerotic heart disease of native coronary artery without angina pectoris; I12.9 Hypertensive chronic kidney disease with stage 1 through stage 4 chronic kidney disease, or unspecified chronic kidney disease; D72.829 Elevated white blood cell count, unspecified; Z79.52 Long term (current) use of systemic steroids; X58.XXXA Exposure to other specified factors, initial encounter
CPT/HCPCS: 71045; 80053; 80164; 81001; 83690; 85025; 96365; 96374; 96375; 99285; A4216; J2405; J3490

== ENCOUNTER → 2022-11-17 | Outpatient (CLI) | payer MEDICARE, MEDICAID, SELFPAY ==
[2020-06-04 12:24] VITALS: BMI 26.4
--- NOTE | 2022-11-17 16:15 | RAD_ITS ---
STUDY: X-RAY CHEST REASON FOR EXAM: Female, 67 years old. COUGH TECHNIQUE: PA and lateral COMPARISON: September 15, 2022. FINDINGS: The lungs are clear and expanded. There is no demonstrated pleural abnormality. Normal size heart. Normal mediastinum and rita. Normal visualized pulmonary arteries. Mildly calcified aortic arch and descending thoracic aorta. Dorsal spine demonstrates minor scoliosis and degenerative change. Normal visualized ribs, clavicles, and shoulders. Postop changes in the right upper quadrant of the abdomen. RAD/Chest PA and Lateral IMPRESSION: No acute cardiopulmonary pathology Electronically Signed: Nadeem Oscar MD at 22:27 EDT ,
== END | disposition home or self-care (01) ==
LOC: RAD 16:09
PROVIDERS: PCP Nurse Practitioner Family; Referring Provider Nurse Practitioner Family; Visit Provider Nurse Practitioner Family
DX: R05.9 Cough, unspecified (principal)
CPT/HCPCS: 71046

== ENCOUNTER → 2022-11-28 | Outpatient (CLI) | payer MEDICARE, MEDICAID, SELFPAY ==
[2020-06-04 12:24] VITALS: BMI 26.4
--- NOTE | 2022-11-28 15:28 | US_ITS ---
INDICATION: mass right upper chest EXAMINATION: Ultrasound US Chest TECHNIQUE: [place] scale and color flow images were obtained of the right upper chest. COMPARISON: Chest radiograph 11/17/2022 FINDINGS: Targeted ultrasound in the lateral subclavicular right upper chest 2.1 x 1.2 x 0.5 cm heterogeneous echogenic subcutaneous mass without defined capsule or tethering to skin or underlying musculature, without posterior shadowing, and with small round anechoic internal cystic foci up to 2 mm in size US/Chest IMPRESSION: Subclavicular subcutaneous mass with features suggestive of lipoma. [place] of heterotopic right upper outer breast parenchyma is also possible. Small internal cystic foci may represent sequela of internal fat necrosis without necrosis. Consider noncontrast CT characterization. Also recommend mammography clinical follow-up for diagnostic breast mammogram or correlation with recent breast cancer screening if performed. Electronically Signed: Mingo Justin MD at 5:40 EDT ,
== END | disposition home or self-care (01) ==
LOC: US 15:28
PROVIDERS: PCP Nurse Practitioner Family; Referring Provider Nurse Practitioner Family; Visit Provider Nurse Practitioner Family
DX: M79.89 Other specified soft tissue disorders (principal)
CPT/HCPCS: 76604

== ENCOUNTER → 2022-12-08 | Outpatient (CLI) | payer MEDICARE, MEDICAID, SELFPAY ==
[2020-06-04 12:24] VITALS: BMI 26.4
--- NOTE | 2022-12-08 14:13 | BI_ITS ---
MAMMOGRAPHY - BILATERAL DIAGNOSTIC REASON FOR EXAM: Female, 67 years old. Soft tissue mass of chest wall PERTINENT HISTORY: Non-contributory. TECHNIQUE: Digital examination. Mediolateral oblique (MLO) and craniocaudad (CC) views of both breasts were obtained. CAD: CAD was performed on this study. COMPARISON: 06/05/2020 FINDINGS: Breast Composition: There are scattered areas of fibroglandular density. There are no dominant masses or suspicious calcifications. No other significant abnormalities are identified. BI/DIAG MAMM W/CAD, BILAT IMPRESSION: Negative diagnostic mammogram. Yearly followup recommended. ASSESSMENT CATEGORY: BIRADS Category 1: Negative. A letter regarding these results will be sent to the patient by the facility within 30 days. FOLLOW UP RECOMMENDATION: Yearly follow up mammogram recommended. (A) Approximately 10% of breast cancers are not detected by mammography. A normal mammogram should not delay biopsy of a clinically suspicious abnormality. Electronically Signed: Neri Truong MD at 15:09 EDT ,
== END | disposition home or self-care (01) ==
LOC: CT 14:12
PROVIDERS: PCP Nurse Practitioner Family; Referring Provider Internal Medicine; Visit Provider Internal Medicine
DX: Z12.31 Encounter for screening mammogram for malignant neoplasm of breast (principal); M79.89 Other specified soft tissue disorders
CPT/HCPCS: 77062; 77066; G0279

== ENCOUNTER → 2022-12-20 | Outpatient (CLI) | payer MEDICARE, MEDICAID, SELFPAY ==
[2020-06-04 12:24] VITALS: BMI 26.4
--- NOTE | 2022-12-20 13:22 | CT_ITS ---
INDICATION: cystic foci on US recommended CT EXAMINATION: CT Chest W/ Contrast Injection TECHNIQUE: Helically acquired images were obtained of the chest following administration of IV contrast. A radiation dose optimization technique was used for this scan. 3D postprocessing images including MIPS were reviewed. IV Contrast dosage and agent: IV 100mL [id number] COMPARISON: Ultrasound 11/28/2022. FINDINGS: Lungs: 1.1 cm calcified granuloma in the left lung base. Mediastinum: The cardiomediastinal silhouette is not enlarged. No mediastinal, hilar or axillary adenopathy. The thoracic aorta is unremarkable. No obvious filling defect seen within the visualized pulmonary arteries. Pleura: Unremarkable Bones/Soft tissues: There are diffuse degenerative changes of the spine. No abnormality of the right breast. There is a 1.2 cm structure in the subcutaneous tissues of the left medial upper anterior chest, most likely representing a lymph node. Upper abdomen: No visualized abnormalities in the upper abdomen. CT/Chest WITH Contrast IMPRESSION: No acute abnormalities. Specifically, no abnormality of the right breast is seen. Electronically Signed: Fox Frank MD at 18:14 EDT ,
[2022-12-20 14:12] LABS: CREATININE FINGERSTICK 1.3 mg/dL (0.55-1.02)
== END | disposition home or self-care (01) ==
LOC: CT 12:49
PROVIDERS: PCP Nurse Practitioner Family; Referring Provider Internal Medicine; Visit Provider Internal Medicine
DX: R93.89 Abnormal findings on diagnostic imaging of other specified body structures (principal)
CPT/HCPCS: 71260; Q9967

== ENCOUNTER → 2023-02-16 | Outpatient (CLI) | payer MEDICARE, MEDICAID, SELFPAY ==
[2020-06-04 12:24] VITALS: BMI 26.4
[2023-02-16 15:01] LABS: Hematocrit 39.7 % (37-47); Mean Corp Hgb Conc 32.7 g/dL (32-36); Mean Corpuscular Hgb 30.8 pg (27.0-32.0); Mean Corpuscular Volume 94.1 fL (81-99); Mean Platelet Vol. 9.5 fl (6.2-12.0); Platelet Count 453 K/mm3 (150-450); RBC Distribution Width SD 51.8 fl (35.1-43.9); Red Blood Count 4.22 M/mm3 (4.2-5.4); White Blood Count 9.3 K/mm3 (4.4-11.0)
[2023-02-16 15:37] LABS: Ferritin 42 ng/mL (8-252); Iron 61 ug/dL (50-170); Iron Binding Capacity,Total 372 ug/dL (250-450); PERCENT IRON SATURATION 16.4 % (15.0-55.0)
[2023-02-16 15:49] LABS: Microalbumin,Random Urine 60.5 mg/L (NO RANGE EST.); Microalbumin:Creatinine Ratio 137.5 mg/g CRE (<30 mg/g CRE)
[2023-02-16 16:12] LABS: Anion Gap 6 (5-15); BUN 29 mg/dL (7-18); Calcium,Total 8.8 mg/dL (8.5-10.1); Chloride 98 mmol/L (98-107); Creatinine, Serum 1.32 mg/dL (0.55-1.02); EST Glomerular Filtration Rate 43 mL/min (>60); Est Glom Filt Rate - Afr Amer 52 mL/min (>60); Glucose 319 mg/dL (74-106); Potassium 4.4 mmol/L (3.5-5.1); Sodium Level 130 mmol/L (136-145)
== END | disposition home or self-care (01) ==
LOC: BIMLAB 13:37
PROVIDERS: PCP Internal Medicine; Visit Provider Internal Medicine
DX: D64.9 Anemia, unspecified (principal); E11.22 Type 2 diabetes mellitus with diabetic chronic kidney disease; E11.69 Type 2 diabetes mellitus with other specified complication; Z79.4 Long term (current) use of insulin; N18.30 Chronic kidney disease, stage 3 unspecified; I12.9 Hypertensive chronic kidney disease with stage 1 through stage 4 chronic kidney disease, or unspecified chronic kidney disease
CPT/HCPCS: 80048; 82043; 82306; 82570; 82728; 83540; 83550; 85027

== ENCOUNTER → 2023-03-31 | Outpatient (CLI) | payer MEDICARE, MEDICAID, SELFPAY ==
[2020-06-04 12:24] VITALS: BMI 26.4
--- NOTE | 2023-03-31 12:23 | US_ITS ---
STUDY: ULTRASOUND BREAST - RIGHT REASON FOR EXAM: Female, 67 years old. Palpable lump in the right breast. TECHNIQUE: Axial and longitudinal images of the RIGHT breast were performed with a high resolution ultrasound transducer. # OF IMAGES: 18 COMPARISON: Comparison is made with prior mammogram dated December 08, 2022. FINDINGS: RIGHT Breast: The periacetabular region of the right breast was examined with ultrasound. At the 9:00 position of the breast, there are 2 tiny cysts. The largest cyst measures 6 mm x 4 mm x 4 mm. US/Breast Limited Unilateral IMPRESSION: 2 small cysts at the 9:00 position of the breast at 2 cm from the nipple. ASSESSMENT CATEGORY: BIRADS Category 2: Benign. A letter regarding these results will be sent to the patient by the facility within 30 days. Electronically Signed: Lloyd Evans MD at 9:07 EST ,
== END | disposition home or self-care (01) ==
PROVIDERS: PCP Internal Medicine; Referring Provider Internal Medicine; Visit Provider Internal Medicine
DX: R92.8 Other abnormal and inconclusive findings on diagnostic imaging of breast (principal); N63.23 Unspecified lump in the left breast, lower outer quadrant
CPT/HCPCS: 76642

== ENCOUNTER → 2023-07-11 | Outpatient (CLI) | payer MEDICARE, MEDICAID, SELFPAY ==
[2020-06-04 12:24] VITALS: BMI 26.4
--- NOTE | 2023-07-11 15:55 | RAD_ITS ---
STUDY: X-RAY - RIGHT SHOULDER REASON FOR EXAM: Female, 67 years old. Shoulder pain TECHNIQUE : 4 view(s) of the shoulder. COMPARISON: November 17, 2022 chest x-ray FINDINGS: There is mild degenerative arthrosis of the glenohumeral articulation. There is degenerative arthrosis of the acromioclavicular joint without inferior osseous spur formation. Normal acromion. Normal humeral head and visualized proximal humerus. The soft tissue structures are unremarkable. The visualized atherosclerotic disease of the aorta. There is degenerative change of the cervical spine. RAD/Shoulder min 2 Views IMPRESSION: Degenerative change. No visualized acute fracture. Electronically Signed: Ana Krishnan MD at 3:30 EST ,
== END | disposition home or self-care (01) ==
LOC: RAD 15:54
PROVIDERS: PCP Internal Medicine; Referring Provider Internal Medicine; Visit Provider Internal Medicine
DX: M25.511 Pain in right shoulder (principal)
CPT/HCPCS: 73030

== ENCOUNTER → 2023-08-08 | Outpatient (CLI) | payer MEDICARE, MEDICAID, SELFPAY ==
[2020-06-04 12:24] VITALS: BMI 26.4
--- NOTE | 2023-08-08 13:56 | ECHOCS_ITS ---
Reason For Study: NONRHEUMATIC AORTIC STENOSIS Procedure This was a 2D Doppler, Color Flow transthoracic echocardiogram. The study was technically difficult. Due to poor accoustic windows. Contrast injection was performed. Upon arrival for test, PT was dizzy, lightheaded and near syncope. Blood sugar was 209, BP 114/76. After approx 15 minutes took PT to exam room in a wheelchair. After exam PT felt fine. Left Ventricle Normal LV size. Left ventricular systolic function is normal. Stage 1 diastolic dysfunction. The left ventricular ejection fraction is 55 %. No regional wall motion abnormalities noted. Right Ventricle Normal RV size. Normal systolic function. Atria Normal left atrium. Normal right atrium. Mitral Valve Normal mitral valve. Aortic Valve Trisinus/trileaflet aortic valve. Mild focal aortic valve calcification. Aortic sclerosis, no stenosis. Pulmonic Valve The pulmonic valve is not well visualized. Great Vessels Normal aortic root. The pulmonary artery is normal size. Inferior vena cava collapse with sniff. Pericardium/Pleural No pericardial effusion. Medication 22 gauge I.V. with prn adaptor inserted into left arm. Diluted definity 3.5ml given slow IV push to enhance endocardial definition. MMode/2D Measurements & Calculations LVIDd: 4.1 cm IVSd: 1.1 cm LVOT diam: 2.0 cm LVIDs: 2.9 cm LVPWd: 1.1 cm LVOT area: 3.2 cm2 FS: 30.3 % Ao root diam: 3.3 cm LVAd ap4: 20.2 cm2 SV(MOD-sp4): 27.4 ml LVLd ap4: 7.0 cm EDV(MOD-sp4): 47.6 ml EDV(sp4-el): 49.4 ml LVAs ap4: 12.2 cm2 LVLs ap4: 5.9 cm ESV(MOD-sp4): 20.2 ml ESV(sp4-el): 21.3 ml EF(MOD-sp4): 57.5 % EF(sp4-el): 56.8 % SV(sp4-el): 28.1 ml LA dimension(2D): 3.2 cm Time Measurements MV dec time: 0.22 sec Doppler Measurements & Calculations MV E max leonor: 57.3 cm/sec MV V2 max: 78.8 cm/sec MV P1/2t max leonor: 69.6 cm/sec MV A max leonor: 75.2 cm/sec MV max P.5 mmHg MV P1/2t: 46.4 msec MV E/A: 0.76 MV V2 mean: 39.3 cm/sec MV dec slope: 439.4 cm/sec2 MV mean P.77 mmHg MV V2 VTI: 22.9 cm MVA(P1/2t): 4.7 cm2 MVA(VTI): 2.9 cm2 Ao V2 max: 176.9 cm/sec LV V1 max: 87.8 cm/sec SV(LVOT): 66.5 ml Ao max P.5 mmHg LV V1 max P.1 mmHg Ao V2 mean: 120.6 cm/sec LV V1 mean P.5 mmHg Ao mean P.6 mmHg LV V1 mean: 56.1 cm/sec Ao V2 VTI: 35.0 cm LV V1 VTI: 21.0 cm AV (velocity ratio): 0.60 LUCIAN(I,D): 1.9 cm2 LUCIAN(V,D): 1.6 cm2 PA V2 max: 89.5 cm/sec PA V2 mean: 56.1 cm/sec ECHO/Echo Complete W/ Contrast Interpretation Summary Normal LV size. Left ventricular systolic function is normal. Stage 1 diastolic dysfunction. The left ventricular ejection fraction is 55 %. Contrast injection was performed. Ordering Physician: Jb Marcelino Referring Physician: Tessa Uribe Performed By: Maria De Jesus Grubbs RDCS, RVT
== END | disposition home or self-care (01) ==
LOC: CVS 13:55
PROVIDERS: PCP Internal Medicine; Referring Provider Internal Medicine Cardiovascular Disease; Visit Provider Internal Medicine Cardiovascular Disease
DX: I35.0 Nonrheumatic aortic (valve) stenosis (principal)
CPT/HCPCS: 93306; Q9957; A4216; C8929

== ENCOUNTER → 2023-08-17 | Outpatient (CLI) | payer MEDICARE, MEDICAID, SELFPAY ==
[2020-06-04 12:24] VITALS: BMI 26.4
[2023-08-17 15:01] LABS: Bacteria 0 SEEN /hpf (None Seen); Mucous, Urine 0 SEEN /hpf (<or=2+); Red Blood Cells-Urine 0 SEEN /hpf (0-5)
[2023-08-17 16:42] LABS: Absolute Lymphocyte Count 1.62 X10^3/uL (0.83-4.51); Absolute Neutrophil Count 6.3 X10^3/uL (2.0-7.7); Basophil# 0.07 X10^3/uL; Basophil% 0.8 % (0-1); Eosinophil# 0.22 X10^3/uL; Eosinophils% 2.5 % (0-5); Hemoglobin 10.8 g/dL (12.0-15.0); Lymphocyte # 1.62 X10^3/ul (0.83-4.51); Lymphocyte % 18.1 % (19-41); Mean Corp Hgb Conc 32.7 g/dL (32-36); Mean Corpuscular Hgb 29.8 pg (27.0-32.0); Mean Corpuscular Volume 91.2 fL (81-99); Mean Platelet Vol. 9.2 fl (6.2-12.0); Monocyte# 0.62 X10^3/uL; Monocyte% 6.9 % (0-10); NRBC Flagged by Analyzer 0 % (0-5); Neutrophil # 6.34 X10^3/uL (2.7-7.7); Neutrophil % 70.8 % (47-70); Platelet Count 457 K/mm3 (150-450); RBC Distribution Width SD 52.1 fl (35.1-43.9); Red Blood Count 3.62 M/mm3 (4.2-5.4)
[2023-08-17 16:46] LABS: Color, Urine Yellow (Yellow); Glucose, Dipstick 1000 mg/dl (Normal); Ketone-Dipstick Negative (Negative); Leukocyte Esterase-Dipstick 100 /ul (Negative); Nitrite-Dipstick Negative (Negative); Occult Blood-Urine Negative /ul (Negative); Protein-Dipstick Negative (Negative); Urine Bilirubin Dipstick Negative (Negative); Urine Clarity Clear (Clear); Urine Urobilinogen Normal (Normal); Urine pH 6.5 (5.0 - 8.0)
[2023-08-17 16:54] LABS: Anion Gap 9 (5-15); BUN 34 mg/dL (7-18); BUN/Creat Ratio 23.4 RATIO (10-20); Calcium,Total 9.3 mg/dL (8.5-10.1); Chloride 98 mmol/L (98-107); Creatinine, Serum 1.45 mg/dL (0.55-1.02); EST Glomerular Filtration Rate 38 mL/min (>60); Est Glom Filt Rate - Afr Amer 46 mL/min (>60); Glucose 162 mg/dL (74-106); Potassium 4.2 mmol/L (3.5-5.1); Sodium Level 134 mmol/L (136-145)
[2023-08-17 16:57] LABS: Squamous Epithelial Cells - UA 0-5 SEEN /hpf (5-10); White Blood Cells 0-5 SEEN /hpf (0-5); Yeast-Urine RARE /hpf (None Seen)
== END | disposition home or self-care (01) ==
LOC: BIMLAB 15:00
PROVIDERS: PCP Internal Medicine; Visit Provider Internal Medicine
DX: E11.22 Type 2 diabetes mellitus with diabetic chronic kidney disease (principal); N18.30 Chronic kidney disease, stage 3 unspecified; I25.10 Atherosclerotic heart disease of native coronary artery without angina pectoris; R30.0 Dysuria
CPT/HCPCS: 36415; 80048; 81001; 85025; 87086; 87088

== ENCOUNTER 2023-09-11 10:36 | Emergency (ER) | payer MEDICARE, MEDICAID, SELFPAY ==
[2020-06-04 12:24] VITALS: BMI 26.4
[2023-09-11 10:37] VITALS: BP 152/57; PULSE 63; RESP 16; TEMP 36.3; O2SAT 94; BMI 33.2
--- NOTE | 2023-09-11 10:51 | EX.ED.GENINJ ---
HPI History of Present Illness Chief Complaint: Fall Detail of Chief Complaint: Left foot and ankle pain secondary near fall yesterday Onset/Context/Timing Onset: Yesterday Mechanism/Context: Fall (Standing position.) Location of pain/injuries: Left ankle and Left foot Quality of Pain: Dull and Aching Location: Medial aspect of the ankle and second, third fourth metatarsal and proximal Current Severity: Mild Maximum Severity: Severe Worsened by: Unable to bear weight Relieved by: Nothing Associated Symptoms Associated Symptoms: Positive for Weakness, Loss of function and Inability to ambulate; Negative for Parasthesias, Loss of consciousness or Amnesia Narrative Narrative: Patient is a 68-year-old woman. She has past medical history coronary disease with stent placement September 06, 2021, type 2 diabetes which is age 4 chronic kidney disease, essential hypertension, hypothyroidism, anemia, paroxysmal atrial fibrillation who presents because of near falls. She injured her left ankle and foot. She states she cannot put weight on her left lower extremity. She denies prior fracture. Patient does endorse thirst, dry mouth and frequency/polyuria. Patient states she is drinking 6 bottles of water. She has not checked her blood sugar recently since her continuous glucose monitor device was not renewed. She does not know what her blood sugar has been for the last several weeks. She denies headache. She denies head trauma. Denies double vision, blurred vision or loss of vision. Eyes hernandez ears decreased hearing. She denies chest discomfort, dyspnea, orthopnea or PND. She denies abdominal pain, nausea, vomiting or diarrhea. She has black or maroon-colored stool. She denies dysuria or hematuria. She does endorse frequency and polyuria as well as polydipsia. Tetanus Immunization: Unknown Prior similar symptoms: No Recent Illness/Hospitalization: No PFSH [facility] Medical History Abnormal stress test Acute kidney injury superimposed on chronic kidney disease Acute pancreatitis Atherosclerotic heart disease of [place] coronary artery without angina pectoris Atrial fibrillation Bipolar disorder Chest pain Chronic pancreatic insufficiency Cough Dehydration Depression Essential hypertension Fibromyalgia affecting multiple sites Generalized OA Gout Hiatal hernia Hip pain, bilateral Hypertension Hypomagnesemia Hypotension Hypothyroidism Near syncope Overweight (BMI 25.0-29.9) Polyneuropathy due to type 2 diabetes mellitus Shoulder pain, bilateral Tachybradycardia syndrome 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 GFR 30-59 Umbilical hernia Home Medications blood-glucose meter (OneTouch Verio Flex Start kit) #1 ea 11/11/20 [Rx Last Taken Unknown] blood sugar diagnostic (OneTouch Verio test strips) #300 ea 11/12/20 [Rx Last Taken Unknown] flash glucose sensor (FreeStyle Marilyn 14 Day Sensor kit) #2 ea 07/26/21 [Rx Last Taken Unknown] albuterol sulfate 90 mcg/actuation aerosol inhaler 2 puff inhalation Q6H PRN Wheezing #8.5 grams 12/20/21 [Rx Last Taken 07/30/22] ferrous sulfate 324 mg (65 mg iron) tablet,delayed release 324 mg PO DAILY #90 tabs 08/17/22 [Rx Last Taken Unknown] lancets #300 ea 01/24/23 [Rx Last Taken Unknown] pen needle, diabetic 32 gauge x 1/4 (Comfort EZ Pen [place]) #100 ea 01/30/23 [Rx Last Taken Unknown] pen needle, diabetic 32 gauge x 5/32 (BD Ultra-Fine Sophia Pen Needle) #400 ea 01/30/23 [Rx Last Taken Unknown] pantoprazole 40 mg tablet,delayed release 40 mg PO DAILY gerd #90 tabs 02/13/23 [Rx Last Taken Unknown] apixaban 5 mg tablet (Eliquis) 5 mg PO BID #180 tabs 03/09/23 [Rx Last Taken Unknown] carvedilol 6.25 mg tablet 6.25 mg PO BID #180 tabs 03/09/23 [Rx Last Taken Unknown] Farxiga 10 mg tablet (dapagliflozin propanediol) 10 mg PO QAM #90 tabs 03/31/23 [Rx Last Taken Unknown] levothyroxine 112 mcg tablet 112 mcg PO MOTUWETHFR thyroid #90 tabs 06/26/23 [Rx Last Taken Unknown] nitroglycerin 0.4 mg sublingual tablet (Nitrostat) 0.4 mg sublingual Q5-15M PRN chest pain #25 tabs 06/26/23 [Rx Last Taken Unknown] allopurinol 100 mg tablet 100 mg PO QHS gout #100 tabs 06/28/23 [Rx Last Taken Unknown] atorvastatin 80 mg tablet 80 mg PO QHS Hyperlipidemia #100 tabs 06/28/23 [Rx Last Taken Unknown] colestipol 1 gram tablet 1 g PO DAILY cholesterol #100 tabs 06/28/23 [Rx Last Taken Unknown] divalproex 125 mg capsule,delayed release sprinkle 125 mg PO BID bipolar #200 caps 06/28/23 [Rx Last Taken Unknown] insulin lispro 100 unit/mL subcutaneous pen (Humalog KwikPen (U-100) Insulin) 10 unit (0.1 mL) subcut TID #9 mL 06/28/23 [Rx Last Taken Unknown] isosorbide mononitrate 30 mg tablet,extended release 24 hr 30 mg PO DAILY #30 tabs 07/07/23 [Rx Last Taken Unknown] varenicline 1 mg tablet (Chantix Continuing Month Box) 1 mg PO BID #60 tabs 07/10/23 [Rx Last Taken Unknown] amitriptyline 50 mg tablet 50 mg PO QHS #90 tabs 08/11/23 [Rx Last Taken Unknown] gabapentin 600 mg tablet 900 mg (1.5 x 600 mg) PO BID neuropathy #135 tabs 08/11/23 [Rx Last Taken Unknown] losartan 50 mg tablet 50 mg PO DAILY Check with primary doctor #90 tabs 08/11/23 [Rx Last Taken Unknown] nystatin 100,000 unit/gram topical powder (Nyamyc) 1 applic topical BID PRN for infectious disease #30 GMS 08/14/23 [Rx Last Taken Unknown] insulin glargine 100 unit/mL (3 mL) subcutaneous pen (Lantus Solostar U-100 Insulin) 24 unit (0.24 mL) subcut QHS #7.2 mL 08/17/23 [Rx Last Taken Unknown] ticagrelor 90 mg tablet 90 mg PO BID 08/17/23 [History Last Taken Unknown] hydrocodone-acetaminophen 5-325mg 5mg-325mg 1 tab PO Q6H PRN PRN Pain 3 days #10 TABLETS 09/11/23 [Rx Last Taken Unknown] triamterene 37.5 mg-hydrochlorothiazide 25 mg tablet 1 tab PO DAILY 09/11/23 [History Last Taken Unknown] Allergy/AdvReac Type Severity Reaction Status Date / Time duloxetine [From Cymbalta] Allergy Itching Verified 09/11/23 10:37 tomato Allergy Itching Verified 09/11/23 10:37 diphenhydramine AdvReac Severe other Verified 09/11/23 10:37 [From Benadryl] isosorbide AdvReac Intermediate Other Verified 09/11/23 10:37 adhesive tape [plastic tape] AdvReac Rash Verified 09/11/23 10:37 semaglutide [From Ozempic] AdvReac Diarrhea Verified 09/11/23 10:37 Family History Sister COPD (chronic obstructive pulmonary disease) Mother COPD (chronic obstructive pulmonary disease) Hypertension Alzheimer's dementia without behavioral disturbance Father Diabetes Hypertension Myocardial infarction Parkinsons disease Surgical History History of laparoscopic appendectomy History of surgical procedure History of total abdominal hysterectomy Hx of cholecystectomy Hx of shoulder surgery Presence of stent in coronary artery (~09/06/21) Social History household members: family current occupational status: retired 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 Smoking Status: Current every day smoker tobacco type: cigarettes Electronic Cigarette Use: not used alcohol intake: never substance use type: does not use caffeine: No what type of physical activity do you participate in: none do you feel safe at home: Yes ROS ROS ED Constitutional Constitutional ED: Denies chills, fever(s), subjective, sweats or weight loss Eyes Eyes: Denies blurry vision or change in vision ENT ENT ED: Reports other Details: Dry mouth and thirst ; Denies ear pain, rhinorrhea or sore throat Cardiovascular Cardiovascular: Denies chest pain, palpitations or paroxysmal nocturnal dyspnea Respiratory/Chest Respiratory/Chest: Denies cough, dyspnea, dyspnea on exertion or paroxysmal nocturnal dyspnea Gastrointestinal Gastrointestinal: Denies abdominal pain, melena, nausea or vomiting Genitourinary Genitourinary ED: Reports urinary frequency; Denies dysuria or hematuria Musculoskeletal Musculoskeletal: Reports other Details: Left ankle and foot pain. ; Denies arthralgias, back pain or myalgias Integumentary Reports other Details: Swelling and bruising of the left foot and left ankle ; Denies rash Neurologic Neurologic: Reports weakness; Denies paresthesias Endocrine Endocrinology: Reports polydipsia and polyuria; Denies cold intolerance or heat intolerance Hematologic/Lymphatic Hematologic/Lymphatic: Denies easy bleeding or easy bruising Allergic/Immunologic Allergic/Immunologic ED: Denies mouth swelling or tongue swelling EXAM Physical Exam Const Vital Signs: 09/11/23 10:37 09/11/23 10:41 09/11/23 12:37 Temperature 97.3 F L Temperature Source Temporal Pulse Rate 63 68 Respiratory Rate 16 18 Respiratory Effort Normal Non-Labored Respiratory Depth Normal Respiratory Pattern Normal Blood Pressure 152/57 H 185/104 H Blood Pressure Mean 88 131 Pulse Ox 94 94 Oxygen Delivery Method Room Air Room Air Room Air Positive well nourished, well developed and obese General Appearance ED: well developed and NAD Nutritional Appearance: obese HEENT HEENT Narrative: Ears are normal. Nares are patent. There is no septal deviation hematoma. Mucosa is dry. Posterior pharynx is normal. atraumatic; Negative for tenderness Nose: Negative for septum abnormal Eyes PERRL and EOMs intact bilaterally General Eye ED: Yes other Other Details: There is no subconjunctival hemorrhage. There is no pallor to the conjunctivo-. Neck full ROM Chest Wall inspection of chest normal and palpation of chest normal Resp normal respiratory effort and clear to auscultation bilaterally Cardio regular rhythm, S1 normal heart sound, S2 normal heart sound and no murmurs Rate: regular rate GI normal to inspection, nondistended, normoactive bowel sounds, non-tender, non-distended and no masses Auscultation: normoactive bowel sounds Back/Spine normal to inspection Extremity Negative for normal to inspection or full ROM Extremity Narrative: There is soft tissue swelling with ecchymosis medially with pain outpatient over the lateral and medial malleolus. There is no laxity with drawer testing.there is also pain ovation over the second, third fourth metatarsal bone and proximal phalanx of respected toes. General Extremety ED: Yes edema and tenderness; Negative for deformity General Extremity: edema; Negative for deformity Neuro oriented x3, CN's II-XII intact bilaterally, moves all extremities, no focal motor deficits and no sensory deficits noted Sharon Coma Scale: document GCS findings Spontaneous Obeys Commands Oriented 15 Sensorium / Orientation: alert Plantar Reflex: Downgoing: bilateral Psych mental status grossly normal and thought process normal Skin no rashes or lesions noted, skin turgor normal and no jaundice MDM MDM MDM Narrative Medical decision making narrative: With patient having dry mouth, polyuria, polydipsia and not able to check her blood sugars suspect she is hyperglycemic. BGT was obtained. Clinically she is dehydrated. 1 L normal saline was ordered. Per review of prior records there is no history of heart failure. X-ray of the ankle and foot were obtained to assess for sprain versus strain versus fracture of the ankle and foot respectively. BMP was obtained to assess electrolytes and renal function. CBC to assess white count and H&H. Patient is on anticoagulant, apixaban, for paroxysmal atrial fibrillation. History & Record Review Additional record(s) reviewed:: Prior inpatient record (Outside records and hospitalization for ileus July 2022), Prior outpatient record (Dr. Garcia's records for endocrinology, Denise Uribe for CAD and April 2023 for anemia), Prior ED visit and Prior labs Lab Data Attestation: I reviewed the patient's lab results. Lab results narrative: Patient has mild hyponatremia. She has had hyponatremia in the past. BUN and creatinine are elevated at 35 1.66, which is patient's baseline. Glucose is 164 with a normal CO2 and anion gap. UA is negative. Labs: Laboratory Results - last 24 hr 09/11/23 09/11/23 11:00 12:09 Sodium 129 L Potassium 4.6 Chloride 98 Carbon Dioxide 21.0 Anion Gap 10 BUN 35 H Creatinine 1.66 H Estim Creat Clear Calc 29.71 Est GFR (MDRD) Af Amer 40 L Est GFR (MDRD) Non-Af 33 L BUN/Creatinine Ratio 21.1 H Glucose 164 H Calcium 8.7 Total Bilirubin 0.50 AST 29 ALT 25 Alkaline Phosphatase 122 H Total Protein 8.0 Albumin 3.4 Globulin 4.6 H Albumin/Globulin Ratio 0.7 L Urine Color Straw Urine Clarity Sl. Cloudy Urine pH 6.0 Ur Specific [place] 1.010 Urine Protein 15 H Urine Glucose (UA) 1000 H Urine Ketones Negative Urine Occult Blood Negative Urine Nitrite Negative Urine Bilirubin Negative Urine Urobilinogen Normal Ur Leukocyte Esterase Negative Urine RBC 0 SEEN Urine WBC 0 SEEN Ur Squamous Epith Cells 0 SEEN Urine Bacteria 0 SEEN Urine Mucus 0 SEEN Radiography Chest X-Ray - ED: Read by ED Physician (Three-view x-ray of the left ankle and three-view x-ray of the left foot were obtained. There is no evidence of fracture, subluxation dislocation noted. There is soft tissue swelling noted on the AP ankle film. These were independently reviewed interpreted by me at 1118.) Diagnostic Testing: Clinical Impression(s) from Imaging Studies Ankle X-Ray 09/11/23 11:05 IMPRESSION: Diffuse soft tissue swelling. Findings suggestive of a tiny avulsion fracture of the medial malleolus. Electronically Signed: Lloyd Evans MD at 11:40 EDT , Foot X-Ray 09/11/23 11:05 IMPRESSION: Soft tissue swelling. Electronically Signed: Lloyd Evans MD at 11:20 EDT , Radiologist raise concern for possible small avulsion fracture of the medial malleolus. This may represent a chronic abnormality since the edges are well-rounded. Discharge Plan Triage Chief Complaint: Fall ED Provider: Tobi Riojas Dx/Rx/DC Orders Clinical Impression: Avulsion fracture of medial malleolus of left tibia, Atherosclerotic heart disease of [place] coronary artery without angina pectoris, CKD (chronic kidney disease) stage 3, GFR 30-59 ml/min, Essential hypertension, Chronic anticoagulation, Contusion of foot, left, Acute dehydration, Hyponatremia, Type 2 diabetes mellitus with hyperglycemia, without long-term current use of insulin Instructions: ED Ankle Fracture, ED Foot Contusion Prescriptions: New hydrocodone-acetaminophen [hydrocodone-acetaminophen] 5-325 mg tablet 1 tab PO Q6H PRN PRN (Reason: Pain) 3 Days Qty: 10 0RF No Action (DME) FreeStyle Marilyn 14 Day Sensor Kit See Rx Instructions .ROUTE .MEDSUPPLY Qty: 2 6RF Rx Instructions: As directed ferrous sulfate 324 mg (65 mg iron) tablet,delayed release (DR/EC) 324 mg PO DAILY Qty: 90 1RF Farxiga 10 mg tablet 10 mg PO QAM Qty: 90 3RF (DME) lancets Misc See Rx Instructions .ROUTE .MEDSUPPLY Qty: 300 0RF Rx Instructions: Check 3 times a day and as needed ticagrelor 90 mg tablet 90 mg PO BID isosorbide mononitrate 30 mg tablet extended release 24 hr 30 mg PO DAILY Qty: 30 11RF triamterene-hydrochlorothiazid 37.5-25 mg tablet 1 tab PO DAILY (DME) blood-glucose meter [OneTouch Verio Flex Start] Kit See Rx Instructions .ROUTE .MEDSUPPLY Qty: 1 0RF Rx Instructions: Twice daily and as needed (DME) OneTouch Verio test strips Strip See Rx Instructions .ROUTE .MEDSUPPLY Qty: 300 3RF Rx Instructions: Check 3 times a day and as needed albuterol sulfate 90 mcg/actuation HFA aerosol inhaler 2 puff INHALATION Q6H PRN (Reason: Wheezing) Qty: 8.5 6RF (DME) pen needle, diabetic [Comfort EZ Pen [place]] 32 gauge x 1/4 needle See Rx Instructions .Route Qty: 100 0RF Rx Instructions: As directed (DME) pen needle, diabetic [BD Ultra-Fine Sophia Pen Needle] 32 gauge x 5/32 needle See Rx Instructions .Route Qty: 400 3RF Rx Instructions: qid pantoprazole 40 mg tablet,delayed release (DR/EC) 40 mg PO DAILY Qty: 90 3RF carvedilol 6.25 mg tablet 6.25 mg PO BID Qty: 180 3RF Rx Instructions: must administer with a meal/food Eliquis 5 mg tablet 5 mg PO BID Qty: 180 3RF nitroglycerin [Nitrostat] 0.4 mg tablet, sublingual 0.4 mg sublingual Q5-15M PRN (Reason: chest pain) Qty: 25 3RF Rx Instructions: do not exceed 3 doses per episode levothyroxine 112 mcg tablet 112 mcg PO MOTUWETHFR Qty: 90 0RF atorvastatin 80 mg tablet 80 mg PO QHS Qty: 100 1RF Rx Instructions: cholesterol allopurinol 100 mg tablet 100 mg PO QHS Qty: 100 1RF colestipol 1 gram tablet 1 g PO DAILY Qty: 100 1RF divalproex 125 mg capsule, delayed rel sprinkle 125 mg PO BID Qty: 200 1RF insulin lispro [Humalog KwikPen Insulin] 100 unit/mL insulin pen 10 unit subcut TID Qty: 9 5RF varenicline [Chantix Continuing Month Box] 1 mg tablet 1 mg PO BID Qty: 60 1RF amitriptyline 50 mg tablet 50 mg PO QHS Qty: 90 0RF gabapentin 600 mg tablet 900 mg PO BID Qty: 135 0RF losartan 50 mg tablet 50 mg PO DAILY Qty: 90 0RF nystatin [Nyamyc] 100,000 unit/gram powder 1 applic topical BID PRN (Reason: for infectious disease) Qty: 30 0RF insulin glargine [Lantus Solostar U-100 Insulin] 100 unit/mL (3 mL) insulin pen 24 unit subcut QHS Qty: 7.2 3RF Primary Care Provider: Denise Uribe Referrals: Denise Uribe MD [Primary Care Provider] - 1 Week Nadeem Whittington DPM [Med Staff - Active Staff] - 1 Week Disposition Disposition: Home, Self Care
--- NOTE | 2023-09-11 11:05 | RAD_ITS ---
STUDY: X-RAY - LEFT ANKLE REASON FOR EXAM: Female, 68 years old. Injury/Pain . Left ankle swelling. TECHNIQUE: 3 view(s) of the ankle. COMPARISON: None. FINDINGS: Normal visualized distal tibia and fibula. Findings suggestive of a tiny avulsion fracture of the medial malleolus. Normal tibiotalar articulation and ankle mortise. Calcaneal spurs. The visualized subtalar, talonavicular, calcaneocuboid and tarsal articulations are normal. Diffuse soft tissue swelling. RAD/Ankle min 3 Views IMPRESSION: Diffuse soft tissue swelling. Findings suggestive of a tiny avulsion fracture of the medial malleolus. Electronically Signed: Lloyd Evans MD at 11:40 EDT ,
--- NOTE | 2023-09-11 11:05 | RAD_ITS ---
STUDY: X-RAY - LEFT FOOT CLINICAL: Female, 68 years old. Injury/Pain TECHNIQUE: 3 view(s) of the foot. COMPARISON: None. FINDINGS: There is an enthesophyte involving the posterior superior calcaneus at the site of insertion of the Achilles tendon. Plantar spur. Normal visualized subtalar, talonavicular, calcaneocuboid, tarsal and tarsometatarsal articulations. Normal metatarsi. Normal metatarsophalangeal joint of the great toe. There is a bipartite tibial sesamoid. Normal interphalangeal joint of the great toe. Normal phalanges of the great toe. Normal second through fifth metatarsophalangeal joints. Normal interphalangeal joints and phalanges of the lesser toes. Soft tissue swelling. RAD/Foot min 3 Views IMPRESSION: Soft tissue swelling. Electronically Signed: Lloyd Evans MD at 11:20 EDT ,
[2023-09-11 11:27] LABS: ALB/GLOB Ratio 0.7 RATIO (0.9-2.4); AST(SGOT) 29 U/L (15-37); Alanine Aminotransfer ALT/SGPT 25 U/L (13-56); Albumin, Serum 3.4 g/dL (3.2-5.0); Alkaline Phosphatase 122 U/L (45-117); Anion Gap 10 (5-15); BUN 35 mg/dL (7-18); BUN/Creat Ratio 21.1 RATIO (10-20); Calcium,Total 8.7 mg/dL (8.5-10.1); Chloride 98 mmol/L (98-107); Creatinine, Serum 1.66 mg/dL (0.55-1.02); EST Glomerular Filtration Rate 33 mL/min (>60); Est Glom Filt Rate - Afr Amer 40 mL/min (>60); Estimated Creatinine Clearance 29.71 ml/min; Globulin 4.6 g/dL (2.2-4.2); Glucose 164 mg/dL (74-106); Potassium 4.6 mmol/L (3.5-5.1); Sodium Level 129 mmol/L (136-145)
[2023-09-11] MEDS: 0.9% Normal Saline (1000mL) 1,000 ML 1000 ML IV (11:27)
[2023-09-11 12:12] LABS: Bacteria 0 SEEN /hpf (None Seen); Mucous, Urine 0 SEEN /hpf (<or=2+); Red Blood Cells-Urine 0 SEEN /hpf (0-5); Squamous Epithelial Cells - UA 0 SEEN /hpf (5-10); White Blood Cells 0 SEEN /hpf (0-5)
[2023-09-11 12:17] LABS: Color, Urine Straw (Yellow); Glucose, Dipstick 1000 mg/dl (Normal); Ketone-Dipstick Negative (Negative); Leukocyte Esterase-Dipstick Negative /ul (Negative); Nitrite-Dipstick Negative (Negative); Occult Blood-Urine Negative /ul (Negative); Protein-Dipstick 15 mg/dl (Negative); Urine Bilirubin Dipstick Negative (Negative); Urine Clarity Sl. Cloudy (Clear); Urine Urobilinogen Normal (Normal)
[2023-09-11 12:37] VITALS: BP 185/104; PULSE 68; RESP 18; O2SAT 94
[2023-09-11 13:44] VITALS: BP 129/69; PULSE 78; RESP 16; TEMP 36.9; O2SAT 97
== END 2023-09-11 13:40 | disposition home or self-care (01) ==
PROVIDERS: Emergency Provider Emergency Medicine; PCP Internal Medicine; Visit Provider Emergency Medicine
DX: E11.65 Type 2 diabetes mellitus with hyperglycemia (principal); I48.0 Paroxysmal atrial fibrillation; E11.22 Type 2 diabetes mellitus with diabetic chronic kidney disease; E11.42 Type 2 diabetes mellitus with diabetic polyneuropathy; N18.30 Chronic kidney disease, stage 3 unspecified; F17.210 Nicotine dependence, cigarettes, uncomplicated; E87.1 Hypo-osmolality and hyponatremia; D64.9 Anemia, unspecified; R26.2 Difficulty in walking, not elsewhere classified; I25.10 Atherosclerotic heart disease of native coronary artery without angina pectoris; I12.9 Hypertensive chronic kidney disease with stage 1 through stage 4 chronic kidney disease, or unspecified chronic kidney disease; S82.52XA Displaced fracture of medial malleolus of left tibia, initial encounter for closed fracture; Z79.01 Long term (current) use of anticoagulants; W19.XXXA Unspecified fall, initial encounter; E86.0 Dehydration; Z95.5 Presence of coronary angioplasty implant and graft; E03.9 Hypothyroidism, unspecified; R35.0 Frequency of micturition; E66.9 Obesity, unspecified; R63.1 Polydipsia; R35.89 Other polyuria; S90.32XA Contusion of left foot, initial encounter
CPT/HCPCS: 73610; 73630; 80048; 80053; 81001; 96361; 99284; J7030; A4216

== ENCOUNTER → 2023-09-14 | Outpatient (CLI) | payer MEDICARE, MEDICAID, SELFPAY ==
[2020-06-04 12:24] VITALS: BMI 26.4
[2023-09-14 17:02] LABS: Absolute Lymphocyte Count 1.66 X10^3/uL (0.83-4.51); Absolute Neutrophil Count 5.6 X10^3/uL (2.0-7.7); Basophil# 0.07 X10^3/uL; Basophil% 0.8 % (0-1); Eosinophil# 0.22 X10^3/uL; Eosinophils% 2.7 % (0-5); Hematocrit 30.6 % (37-47); Hemoglobin 9.6 g/dL (12.0-15.0); Lymphocyte # 1.66 X10^3/ul (0.83-4.51); Lymphocyte % 20.1 % (19-41); Mean Corp Hgb Conc 31.4 g/dL (32-36); Mean Corpuscular Hgb 29.2 pg (27.0-32.0); Mean Platelet Vol. 9.1 fl (6.2-12.0); Monocyte# 0.64 X10^3/uL; Monocyte% 7.7 % (0-10); NRBC Flagged by Analyzer 0 % (0-5); Neutrophil # 5.63 X10^3/uL (2.7-7.7); Neutrophil % 68.1 % (47-70); Platelet Count 507 K/mm3 (150-450); RBC Distribution Width CV 17.2 % (11.6-14.6); RBC Distribution Width SD 58.4 fl (35.1-43.9); Red Blood Count 3.29 M/mm3 (4.2-5.4); White Blood Count 8.3 K/mm3 (4.4-11.0)
[2023-09-14 17:54] LABS: ALB/GLOB Ratio 0.7 RATIO (0.9-2.4); AST(SGOT) 16 U/L (15-37); Alanine Aminotransfer ALT/SGPT 29 U/L (13-56); Albumin, Serum 3.3 g/dL (3.2-5.0); Alkaline Phosphatase 115 U/L (45-117); Anion Gap 12 (5-15); BUN 34 mg/dL (7-18); BUN/Creat Ratio 21.2 RATIO (10-20); Calcium,Total 9.1 mg/dL (8.5-10.1); Chloride 97 mmol/L (98-107); EST Glomerular Filtration Rate 34 mL/min (>60); Est Glom Filt Rate - Afr Amer 41 mL/min (>60); Globulin 4.6 g/dL (2.2-4.2); Glucose 153 mg/dL (74-106); Potassium 4.5 mmol/L (3.5-5.1); Protein, Total 7.9 g/dL (6.4-8.2); Sodium Level 132 mmol/L (136-145)
[2023-09-15 09:27] LABS: Ferritin 33 ng/mL (8-252); Iron 43 ug/dL (50-170); Iron Binding Capacity,Total 440 ug/dL (250-450); PERCENT IRON SATURATION 9.8 % (15.0-55.0)
== END | disposition home or self-care (01) ==
LOC: BIMLAB 15:03
PROVIDERS: PCP Internal Medicine; Referring Provider Internal Medicine; Visit Provider Internal Medicine
DX: R29.6 Repeated falls (principal); E11.22 Type 2 diabetes mellitus with diabetic chronic kidney disease; Z79.4 Long term (current) use of insulin; N18.32 Chronic kidney disease, stage 3b; D64.9 Anemia, unspecified
CPT/HCPCS: 36415; 80053; 82728; 83540; 83550; 85025

== ENCOUNTER → 2023-12-05 | Outpatient (CLI) | payer MEDICARE, MEDICAID, SELFPAY ==
[2020-06-04 12:24] VITALS: BMI 26.4
[2023-12-05 16:48] LABS: Vitamin D,25 Hydroxy 30.8 ng/mL
[2023-12-05 16:56] LABS: BNP,B-Type NATRIURETIC PEPTIDE 6.9 pg/mL (0-100)
[2023-12-05 16:57] LABS: ALB/GLOB Ratio 0.8 RATIO (0.9-2.4); AST(SGOT) 6 U/L (15-37); Alanine Aminotransfer ALT/SGPT 26 U/L (13-56); Albumin, Serum 3.4 g/dL (3.2-5.0); Alkaline Phosphatase 111 U/L (45-117); Anion Gap 11 (5-15); BUN 25 mg/dL (7-18); BUN/Creat Ratio 16.2 RATIO (10-20); Calcium,Total 8.8 mg/dL (8.5-10.1); Chloride 98 mmol/L (98-107); Cholesterol 181 mg/dL (200); Creatinine, Serum 1.54 mg/dL (0.55-1.02); EST Glomerular Filtration Rate 36 mL/min (>60); Est Glom Filt Rate - Afr Amer 43 mL/min (>60); Globulin 4.3 g/dL (2.2-4.2); Glucose 275 mg/dL (74-106); High Density Lipoprotein 47 mg/dL; Potassium 4.5 mmol/L (3.5-5.1); Protein, Total 7.7 g/dL (6.4-8.2); Sodium Level 131 mmol/L (136-145); T4 Free Direct 0.95 ng/dL (0.76-1.46); Thyroid Stim Hormone (TSH) 7.09 uIU/mL (0.358-3.74); Triglycerides 556 mg/dL
== END | disposition home or self-care (01) ==
LOC: BIMLAB 15:33
PROVIDERS: Nurse Practitioner Family; PCP Internal Medicine; Referring Provider Nurse Practitioner; Visit Provider Nurse Practitioner
DX: I48.0 Paroxysmal atrial fibrillation (principal); E11.22 Type 2 diabetes mellitus with diabetic chronic kidney disease; N18.31 Chronic kidney disease, stage 3a; R06.09 Other forms of dyspnea; E55.9 Vitamin D deficiency, unspecified
CPT/HCPCS: 36415; 80053; 80061; 82306; 83880; 84439; 84443

== ENCOUNTER → 2023-12-21 | Outpatient (CLI) | payer MEDICARE, MEDICAID, SELFPAY ==
[2020-06-04 12:24] VITALS: BMI 26.4
--- NOTE | 2023-12-21 14:52 | BD_ITS ---
STUDY: DUAL ENERGY X-RAY ABSORPTIOMETRY / DXA REASON FOR EXAM: Female, 68 years old. Osteopenia TECHNIQUE: Bone Mineral Density (BMD) measurements of lumbar spine and left forearm were obtained. COMPARISON: Comparison is made with prior study dated July 28, 2020. FINDINGS: Lumbar Spine (L1-L4): g/cm2 (1.107) / T-score (0.7) / Z-score (2.6) Findings are suggestive of normal bone density with a low fracture risk. Left Forearm: g/cm2 (0.683) / T-score (1.9) / Z-score (3.7) The T-Scores on the most recent prior examination were: Lumbar Spine (L1-L4): There has been worsening of bone density since the previous examination. BD/Dexa Bone Density Study IMPRESSION: The patient is considered normal as outlined below according to World [place] Organization (WHO) criteria with a low fracture risk. There has been worsening of bone density since the previous examination. Reference Information: The T-score is the number of standard deviations above or below the standard which is normal for young adults at their peak bone mineral density. The World Health Organization (WHO) interprets the T-scores as follows: Above -1 Normal bone density Between -1 and -2.5 Osteopenia Equal to / or below -2.5 Osteoporosis As a practical clinical guideline, osteopenia may be graded as follows: Mild -1 through -1.5 Moderate -1.6 through -2.0 Severe -2.1 through -2.4 The Z-score is the number of standard deviations above or below age-matched controls. A Z-score of less than -1.5 would be considered abnormal. References: 1. NIH Osteoporosis and Related Bone Diseases www osteo.org 2. International Society for Clinical Densitometry www iscd.org 3. National Osteoporosis Foundation www nof.org Electronically Signed: Lloyd Evans MD at 13:28 EDT ,
== END | disposition home or self-care (01) ==
LOC: OPBD 14:46
PROVIDERS: PCP Internal Medicine; Referring Provider Nurse Practitioner Family; Visit Provider Nurse Practitioner Family
DX: Z78.0 Asymptomatic menopausal state (principal); M85.80 Other specified disorders of bone density and structure, unspecified site
CPT/HCPCS: 77080

== ENCOUNTER 2024-01-29 13:09 | Emergency (ER) | payer MEDICARE, MEDICAID, SELFPAY ==
[2020-06-04 12:24] VITALS: BMI 26.4
[2024-01-29 13:14] VITALS: BP 110/59; PULSE 72; RESP 16; TEMP 36.3; O2SAT 98
--- NOTE | 2024-01-29 13:50 | EKG12_ITS ---
Test Reason : DIZZY Blood Pressure : / mmHG Vent. Rate : 068 BPM Atrial Rate : 068 BPM P-R Int : 166 ms QRS Dur : 106 ms QT Int : 392 ms P-R-T Axes : 058 -53 000 degrees QTc Int : 416 ms Sinus rhythm with occasional Premature ventricular complexes Left axis deviation Incomplete right bundle branch block Minimal voltage criteria for LVH, may be normal variant ( [place] product ) Abnormal ECG Confirmed by LANNY LOPEZ, PANKAJ ([id number]), art editor AZAEL THORNE ([id number]) on 01/30/2024 7:36:28 AM Referred By: Confirmed By:PANKAJ CA MD
[2024-01-29 14:08] VITALS: BMI 32.5
--- NOTE | 2024-01-29 14:17 | EDS_ITS ---
HPI History of Present Illness Chief Complaint: Dizziness Informant: patient and family Narrative Narrative: 68-year-old female presenting with several months worth of intermittent disequilibrium and dizziness/spinning sensation. She is unclear about triggers but states it often is worse when she moves her head or changes positions. It has been causing her to fall. She has had 3 episodes where she had some jerking of her extremities while she was awake but then blacked out and collapsed and woke up on the floor. The last episode of that was about 3 weeks ago. She states at times her knees seem to give out cause her to fall or have near-falls. She had a couple of close calls this morning related all of this, called PCPs office, they did not have a spot to see her so she was referred here to the ER. She denies any new symptoms right now. She did also have some hearing loss that preexisted all of the symptoms that she was seen at ENT for. She is also states that she has meclizine but it did not seem to help a lot with this, however she has not had a dose in over 3 weeks. The only other new medication she is on is Imdur. She has been having headaches, tinnitus off and on. She denies any focal peripheral neurologic symptoms or vision loss or chest discomfort/dyspnea. She had 1 of these falls within the last month or 2 that resulted in a fractured left foot, she saw podiatry, she did not require surgery and has been getting around on it okay now. She uses a cane to help her get around. [facility] Medical History Cough Umbilical hernia Hypothyroidism Hiatal hernia Gout Acute pancreatitis Essential hypertension Atrial fibrillation Overweight (BMI 25.0-29.9) Polyneuropathy due to type 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 GFR 30-59 Fibromyalgia affecting multiple sites Chest pain Shoulder pain, bilateral Hip pain, bilateral Tachybradycardia syndrome Near syncope Generalized OA Atherosclerotic heart disease of [place] coronary artery without angina pectoris Dehydration Abnormal stress test Hypotension Hypomagnesemia Acute kidney injury superimposed on chronic kidney disease Hypertension Bipolar disorder Chronic pancreatic insufficiency Depression Home Medications ?Medication ?Instructions ?Recorded ?Last Taken ?Type albuterol sulfate 90 mcg/actuation 2 puff inhalation Q6H PRN Wheezing 12/20/21 07/30/22 Rx aerosol inhaler #8.5 grams lancets #300 ea 01/24/23 Unknown Rx pen needle, diabetic 32 gauge x #400 ea 01/30/23 Unknown Rx 5/32 (BD Ultra-Fine Sophia Pen Needle) pantoprazole 40 mg tablet,delayed 40 mg PO DAILY gerd #90 tabs 02/13/23 Unknown Rx release Farxiga 10 mg tablet 10 mg PO QAM #90 tabs 03/31/23 Unknown Rx (dapagliflozin propanediol) levothyroxine 112 mcg tablet 112 mcg PO MOTUWETHFR thyroid #90 06/26/23 Unknown Rx tabs atorvastatin 80 mg tablet 80 mg PO QHS Hyperlipidemia #100 06/28/23 Unknown Rx tabs divalproex 125 mg capsule,delayed 125 mg PO BID bipolar #200 caps 06/28/23 Unknown Rx release sprinkle isosorbide mononitrate 30 mg 30 mg PO DAILY #30 tabs 07/07/23 Unknown Rx tablet,extended release 24 hr losartan 50 mg tablet 50 mg PO DAILY Check with primary 08/11/23 Unknown Rx doctor #90 tabs nystatin 100,000 unit/gram topical 1 applic topical BID PRN for 08/14/23 Unknown Rx powder ([facility]) infectious disease #30 GMS triamterene 37.5 1 tab PO DAILY 09/11/23 Unknown History mg-hydrochlorothiazide 25 mg tablet allopurinol 100 mg tablet 100 mg PO QHS gout #90 tabs 10/04/23 Unknown Rx nitroglycerin 0.4 mg sublingual 0.4 mg sublingual Q5-15M PRN chest 10/04/23 Unknown Rx tablet (Nitrostat) pain #25 tabs carvedilol 6.25 mg tablet 6.25 mg PO BID #180 tabs 10/05/23 Unknown Rx insulin lispro 100 unit/mL 15 unit (0.15 mL) subcut TID #13.5 10/05/23 Unknown Rx subcutaneous pen (Humalog KwikPen mL (U-100) Insulin) ticagrelor 90 mg tablet 90 mg PO BID #180 tabs 10/06/23 Unknown Rx Lantus Solostar U-100 Insulin 100 40 unit (0.4 mL) subcut QHS #45 mL 11/13/23 Unknown Rx unit/mL (3 mL) subcutaneous pen (insulin glargine) blood sugar diagnostic (OneTouch #300 ea 11/29/23 Unknown Rx Verio test strips) blood-glucose meter (OneTouch #1 ea 11/29/23 Unknown Rx Verio Flex Meter) flash glucose sensor (FreeStyle #2 ea 11/29/23 Unknown Rx Marilyn 14 Day Sensor kit) TENS unit electrodes 2 X 2 pads #80 ea 12/05/23 Unknown Rx TENS units (TENS 502 device) #1 ea 12/05/23 Unknown Rx colestipol 1 gram tablet 1 g PO DAILY cholesterol #100 tabs 12/05/23 Unknown Rx icosapent ethyl 1 gram capsule 2 g (2 x 1 gram) PO BID #120 caps 12/06/23 Unknown Rx (Vascepa) amitriptyline 50 mg tablet 50 mg PO QHS #90 tabs 12/14/23 Unknown Rx gabapentin 600 mg tablet 900 mg (1.5 x 600 mg) PO BID for 12/27/23 Unknown Rx neuropathy #90 TABLETS apixaban 5 mg tablet (Eliquis) 5 mg PO BID #180 tabs 01/02/24 Unknown Rx meclizine 12.5 mg tablet 12.5 - 25 mg (1 - 2 x 12.5 mg) PO 01/29/24 Unknown Rx Q8H PRN PRN dizziness #30 tabs Allergy/AdvReac Type Severity Reaction Status Date / Time duloxetine (From Cymbalta) Allergy Itching Verified 01/29/24 13:10 Environmental Allergies: Allergy Cough Verified 01/29/24 13:10 Uncoded tomato Allergy Itching Verified 01/29/24 13:10 diphenhydramine (From AdvReac Severe other Verified 01/29/24 13:10 Benadryl) isosorbide AdvReac Intermediate Other Verified 01/29/24 13:10 adhesive tape (plastic tape) AdvReac Rash Verified 01/29/24 13:10 semaglutide (From Ozempic) AdvReac Diarrhea Verified 01/29/24 13:10 Family History Sister COPD (chronic obstructive pulmonary disease) Mother COPD (chronic obstructive pulmonary disease) Hypertension Alzheimer's dementia without behavioral disturbance Father Diabetes Hypertension Myocardial infarction Parkinsons disease Surgical History History of surgical procedure History of laparoscopic appendectomy History of total abdominal hysterectomy Hx of cholecystectomy Hx of shoulder surgery Presence of stent in coronary artery (~09/06/21) Social History household members: family current occupational status: retired 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 Smoking Status: Current every day smoker tobacco type: cigarettes Electronic Cigarette Use: not used alcohol intake: never substance use type: does not use caffeine: No what type of physical activity do you participate in: none do you feel safe at home: Yes ROS ROS ED Constitutional Constitutional ED: Denies chills or fever(s) Eyes Eyes: Denies change in vision or diplopia ENT ENT ED: Reports as per HPI, abnormal hearing and tinnitus; Denies rhinorrhea or sore throat Cardiovascular Cardiovascular: Denies chest pain or palpitations Respiratory/Chest Respiratory/Chest: Denies cough or dyspnea Gastrointestinal Gastrointestinal: Denies abdominal pain, diarrhea, nausea or vomiting Genitourinary Genitourinary ED: Denies dysuria or hematuria Musculoskeletal Musculoskeletal: Reports other Details: Left foot pain due to fracture from one of her falls ; Denies back pain or neck pain Integumentary Denies abscess or rash Neurologic Neurologic: Reports as per HPI, abnormal hearing, disequilibrium, dizziness, headache(s) and syncope; Denies paresthesias or weakness Psychiatric Psychiatric: Denies suicidal thoughts EXAM Physical Exam Const Vital Signs: 01/29/24 13:14 01/29/24 14:06 01/29/24 15:15 Temperature 97.4 F L Temperature Source Temporal Pulse Rate 72 98 Respiratory Rate 16 17 Blood Pressure 110/59 L 120/59 L Blood Pressure Mean 76 79 Pulse Ox 98 98 Oxygen Delivery Method Room Air Room Air 01/29/24 16:55 Temperature Temperature Source Pulse Rate 88 Respiratory Rate 19 H Blood Pressure 135/70 H Blood Pressure Mean 91 Pulse Ox 98 Oxygen Delivery Method Room Air Positive well nourished and well developed General Appearance ED: well developed and NAD HEENT Reports TM's clear and moist mucous membranes normocephalic and atraumatic Tympanic Membrane ED: Yes TM's clear Eyes PERRL and EOMs intact bilaterally Neck full ROM, no lymphadenopathy and supple Chest Wall inspection of chest normal and palpation of chest normal Resp normal respiratory effort and clear to auscultation bilaterally Cardio regular rate, regular rhythm and no murmurs GI non-tender and non-distended Auscultation: normoactive bowel sounds Palpation: soft Back/Spine no CVA tenderness General Back: other FROM Extremity normal to inspection Extremity Narrative: Mild tenderness left forefoot along the MTPJs where she states she had a f racture General Extremety ED: Yes tenderness; Negative for edema or pulses abnormal General Extremity: Negative for edema or pulses abnormal Neuro oriented x3, CN's II-XII intact bilaterally and no sensory deficits noted Neuro Narrative: Normal speech no aphasia or dysarthria. No facial droop. No asymmetric strength or sensory. Normal [id number] and [id number] bilaterally. She has an abnormal jolt sign, with difficulty focusing with sudden head movements. There is also mostly horizontal nonfatigable nystagmus. No vertical or rotatory nystagmus. Sensorium / Orientation: awake and alert Motor Exam: strength 5/5 throughout Psych mental status grossly normal Skin no rashes or lesions noted and no wounds MDM MDM MDM Narrative Medical decision making narrative: This is all consistent with peripheral etiology of vertigo. Patient is having active symptoms with an abnormal jolt sign, consistent with peripheral etiology. She does not have any focal neurologic deficits or symptoms of that. She states she is having occasional jerking and then these episodes where she loses consciousness, unknown if this is seizure activity or not but that is what she is concerned about. She states the last episode she had of this was 3 weeks ago. We did an EKG here and shows a PVC but is otherwise unremarkable, I do not think she needs more of an emergent cardiac workup than that right now. I did perform a CT of the head because of the potential for these episodes being seizures. I reviewed the images and report which I agree with, it is negative for any acute. Patient's labs are noted. Chronic renal insufficiency is actually better today, her chronic anemia does not need to be further emergently addressed. She is able to get up and walk around without difficulty. She has a cane as well as access to a walker at home. She understands and would be difficult to fix unexpected chronic bilateral knee buckling here in the ER, and it sounds like she is having peripheral vertigo which her exam is consistent with. I will prescribe her meclizine, I do not think she needs to be admitted to the hospital right now for any of this, she is concerned she may be having seizures, we discussed the possibility that myoclonic jerking/tremors could be medication related, could also be primary neurological, unclear if she is having seizures or not, sometimes people have severe vertigo that can be confuses this, but I am happy to refer to neurology for an evaluation. Lab Data Attestation: I reviewed the patient's lab results. Labs: Laboratory Results - last 24 hr 01/29/24 14:29 WBC 9.8 RBC 3.31 L Hgb 9.2 L Hct 29.3 L MCV 88.5 MCH 27.8 MCHC 31.4 L RDW Std Deviation 55.1 H RDW Coeff of Yaw 17.0 H Plt Count 454 H MPV 8.8 Immature Gran % (Auto) 1.300 H Neut % (Auto) 67.8 Lymph % (Auto) 19.9 Henderson % (Auto) 8.4 Eos % (Auto) 2.0 Baso % (Auto) 0.6 Absolute Neuts (auto) 6.7 Absolute Lymphs (auto) 1.95 Nucleated RBC % 0 Sodium 129 L Potassium 4.4 Chloride 100 Carbon Dioxide 21.0 Anion Gap 8 BUN 29 H Creatinine 1.36 H Estim Creat Clear Calc 35.80 Est GFR (MDRD) Af Amer 50 L Est GFR (MDRD) Non-Af 41 L BUN/Creatinine Ratio 21.3 H Glucose 76 Calcium 9.1 Radiography Diagnostic Testing: Clinical Impression(s) from Imaging Studies Brain CT 01/29/24 14:40 IMPRESSION: No acute intracranial process. Electronically Signed: Lino Melissa MD at 15:27 EDT Reading Location ID and State: [facility] / [place] Tel , Service support , Chest X-Ray 01/29/24 14:40 IMPRESSION: No radiographic evidence of acute cardiopulmonary disease. Electronically Signed: Lino Melissa MD at 15:21 EDT , Rhythm Strip Rhythm Strip: Sinus Rhythm Rate: 70 Ectopy: PVC(s) EKG Initial EKG: Attestation: I personally reviewed and interpreted this EKG as follows: Interpretation: Sinus Rhythm, No Acute Injury Pattern, RBBB (incomplete) and LAFB Prior EKG tracings: available for review Prior: Unchanged Discharge Plan Triage Chief Complaint: Dizziness ED Provider: Robby Kirkpatrick Dx/Rx/DC Orders Clinical Impression: Episodic peripheral vertigo, Transient alteration of awareness Instructions: ED Vertigo, Unspecified Prescriptions: Continued Farxiga 10 mg tablet 10 mg PO QAM Qty: 90 3RF (DME) lancets Misc See Rx Instructions .ROUTE .MEDSUPPLY Qty: 300 0RF Rx Instructions: Check 3 times a day and as needed isosorbide mononitrate 30 mg tablet extended release 24 hr 30 mg PO DAILY Qty: 30 11RF (DME) TENS 502 Device See Rx Instructions .Route Qty: 1 0RF Rx Instructions: As directed (DME) TENS unit electrodes 2X2 pad See Rx Instructions .Route Qty: 80 0RF Rx Instructions: As directed triamterene-hydrochlorothiazid 37.5-25 mg tablet 1 tab PO DAILY albuterol sulfate 90 mcg/actuation HFA aerosol inhaler 2 puff INHALATION Q6H PRN (Reason: Wheezing) Qty: 8.5 6RF (DME) pen needle, diabetic [BD Ultra-Fine Sophia Pen Needle] 32 gauge x 5/32 needle See Rx Instructions .Route Qty: 400 3RF Rx Instructions: qid pantoprazole 40 mg tablet,delayed release (DR/EC) 40 mg PO DAILY Qty: 90 3RF levothyroxine 112 mcg tablet 112 mcg PO MOTUWETHFR Qty: 90 0RF atorvastatin 80 mg tablet 80 mg PO QHS Qty: 100 1RF Rx Instructions: cholesterol divalproex 125 mg capsule, delayed rel sprinkle 125 mg PO BID Qty: 200 1RF losartan 50 mg tablet 50 mg PO DAILY Qty: 90 0RF nystatin [Nyamyc] 100,000 unit/gram powder 1 applic topical BID PRN (Reason: for infectious disease) Qty: 30 0RF nitroglycerin [Nitrostat] 0.4 mg tablet, sublingual 0.4 mg sublingual Q5-15M PRN (Reason: chest pain) Qty: 25 3RF Rx Instructions: do not exceed 3 doses per episode allopurinol 100 mg tablet 100 mg PO QHS Qty: 90 1RF carvedilol 6.25 mg tablet 6.25 mg PO BID Qty: 180 3RF Rx Instructions: must administer with a meal/food insulin lispro [Humalog KwikPen Insulin] 100 unit/mL insulin pen 15 unit subcut TID Qty: 13.5 5RF ticagrelor 90 mg tablet 90 mg PO BID Qty: 180 3RF insulin glargine [Lantus Solostar U-100 Insulin] 100 unit/mL (3 mL) insulin pen 40 unit subcut QHS Qty: 45 2RF (DME) OneTouch Verio test strips Strip See Rx Instructions .ROUTE .MEDSUPPLY Qty: 300 3RF Rx Instructions: Check 3 times a day and as needed (DME) blood-glucose meter [OneTouch Verio Flex meter] Misc See Rx Instructions .Route Qty: 1 0RF Rx Instructions: As directed (DME) FreeStyle Marilyn 14 Day Sensor Kit See Rx Instructions .ROUTE .MEDSUPPLY Qty: 2 6RF Rx Instructions: As directed colestipol 1 gram tablet 1 g PO DAILY Qty: 100 2RF icosapent ethyl [Vascepa] 1 gram capsule 2 g PO BID Qty: 120 5RF amitriptyline 50 mg tablet 50 mg PO QHS Qty: 90 3RF gabapentin 600 mg tablet 900 mg PO BID Qty: 90 1RF Eliquis 5 mg tablet 5 mg PO BID Qty: 180 3RF Changed meclizine 12.5 mg tablet 12.5 - 25 mg PO Q8H PRN PRN (Reason: dizziness) Qty: 30 0RF Primary Care Provider: Denise Uribe Referrals: Denise Uribe MD [Primary Care Provider] - Abhijeet Conner MD [Med Staff - Active Staff] - (ENT for your vertigo) Magdaleno Carrero MD [Non-Staff -Ordering Privileges] - (For neurology-call make an appointment) Print Language: Filipino Disposition Disposition: Home, Self Care
[2024-01-29 14:37] LABS: Absolute Lymphocyte Count 1.95 X10^3/uL (0.83-4.51); Absolute Neutrophil Count 6.7 X10^3/uL (2.0-7.7); Basophil# 0.06 X10^3/uL; Basophil% 0.6 % (0-1); Hematocrit 29.3 % (37-47); Hemoglobin 9.2 g/dL (12.0-15.0); Lymphocyte # 1.95 X10^3/ul (0.83-4.51); Lymphocyte % 19.9 % (19-41); Mean Corp Hgb Conc 31.4 g/dL (32-36); Mean Corpuscular Hgb 27.8 pg (27.0-32.0); Mean Corpuscular Volume 88.5 fL (81-99); Mean Platelet Vol. 8.8 fl (6.2-12.0); Monocyte# 0.82 X10^3/uL; Monocyte% 8.4 % (0-10); NRBC Flagged by Analyzer 0 % (0-5); Neutrophil # 6.66 X10^3/uL (2.7-7.7); Neutrophil % 67.8 % (47-70); Platelet Count 454 K/mm3 (150-450); RBC Distribution Width SD 55.1 fl (35.1-43.9); Red Blood Count 3.31 M/mm3 (4.2-5.4); White Blood Count 9.8 K/mm3 (4.4-11.0)
--- NOTE | 2024-01-29 14:40 | RAD_ITS ---
INDICATION: dizziness EXAMINATION/TECHNIQUE: X-RAY - XR Chest 1 View COMPARISON: Prior study dated: 11/17/2022 FINDINGS: LINES/DEVICES: None. LUNGS: No consolidation, edema or effusion. No pneumothorax. MEDIASTINUM AND CARDIOVASCULAR STRUCTURES: Cardiac silhouette not enlarged. Central airways and mediastinal contour are unremarkable. BONES AND SOFT TISSUES: Unremarkable. RAD/Chest 1 View (Portable) IMPRESSION: No radiographic evidence of acute cardiopulmonary disease. Electronically Signed: Lino Melissa MD at 15:21 EDT ,
--- NOTE | 2024-01-29 14:40 | CT_ITS ---
INDICATION: dysequilibrium, headaches EXAMINATION: CT BRAIN - CT Head or Brain W/O Contrast Injection TECHNIQUE: Multiple axial images were obtained of the head without intravenous contrast. The protocol utilizes one or more of the following dose reduction techniques: automated exposure control, adjustment of mA and/or kV according to patient size,and/or use of iterative reconstruction technique. IV Contrast dosage and agent: None. RADIATION DOSAGE (If Supplied By Facility): CTDIvol = ( 44.99 ) mGy, DLP = ( 829.85 ) mGycm COMPARISON: Prior study dated: 07/20/2022 FINDINGS: BRAIN PARENCHYMA: No intra- or extra-axial hemorrhage. No evidence of acute infarct. No intracranial mass or mass effect. There is preservation of the fernández/white matter interface. Mild chronic periventricular deep white matter changes likely due to microvascular disease. Posterior fossa structures are unremarkable. Atherosclerotic calcifications of the cavernous internal carotid arteries and vertebral arteries. CSF SPACES: Appropriate for age. No hydrocephalus. Basal cisterns are patent. CALVARIUM, SKULL BASE, PARANASAL SINUSES AND MASTOID AIR CELLS: Clear. No discrete lytic or blastic abnormalities. ORBITS: Both globes, extraocular muscles, optic nerves and retrobulbar fat appear unremarkable. ASPECTS Score for Acute Strokes: 10 CT/Brain/Head without Contrast IMPRESSION: No acute intracranial process. Electronically Signed: Lino Melissa MD at 15:27 EDT ,
[2024-01-29 14:56] LABS: Anion Gap 8 (5-15); BUN 29 mg/dL (7-18); BUN/Creat Ratio 21.3 RATIO (10-20); Calcium,Total 9.1 mg/dL (8.5-10.1); Chloride 100 mmol/L (98-107); Creatinine, Serum 1.36 mg/dL (0.55-1.02); EST Glomerular Filtration Rate 41 mL/min (>60); Est Glom Filt Rate - Afr Amer 50 mL/min (>60); Glucose 76 mg/dL (74-106); Potassium 4.4 mmol/L (3.5-5.1); Sodium Level 129 mmol/L (136-145)
[2024-01-29 15:15] VITALS: BP 120/59; PULSE 98; RESP 17; O2SAT 98
[2024-01-29 16:55] VITALS: BP 135/70; PULSE 88; RESP 19; O2SAT 98
== END 2024-01-29 17:32 | disposition home or self-care (01) ==
PROVIDERS: Emergency Provider Emergency Medicine; PCP Internal Medicine; Visit Provider Emergency Medicine
DX: E11.22 Type 2 diabetes mellitus with diabetic chronic kidney disease (principal); E11.42 Type 2 diabetes mellitus with diabetic polyneuropathy; N18.30 Chronic kidney disease, stage 3 unspecified; R55 Syncope and collapse; H91.90 Unspecified hearing loss, unspecified ear; F17.210 Nicotine dependence, cigarettes, uncomplicated; I49.3 Ventricular premature depolarization; H93.19 Tinnitus, unspecified ear; I12.9 Hypertensive chronic kidney disease with stage 1 through stage 4 chronic kidney disease, or unspecified chronic kidney disease; D64.9 Anemia, unspecified; I25.10 Atherosclerotic heart disease of native coronary artery without angina pectoris
CPT/HCPCS: 70450; 71045; 80048; 85025; 93005; 99283

== ENCOUNTER → 2024-02-23 | Outpatient (CLI) | payer MEDICARE, MEDICAID, SELFPAY ==
[2020-06-04 12:24] VITALS: BMI 26.4
--- NOTE | 2024-02-23 14:53 | BI_ITS ---
MAMMOGRAPHY - BILATERAL SCREENING REASON FOR EXAM: Female, 68 years old. Routine annual screening examination. PERTINENT HISTORY: Non-contributory. TECHNIQUE: Digital bilateral breast kali (3D mammographic acquisition) in the CC and MLO projections. 2-D mediolateral oblique (MLO) and craniocaudad (CC) views of both breasts were obtained. CAD: Full Field Digital Mammography with Computer Added Detection was performed. COMPARISON: Comparison is made with prior study dated December 08, 2022 and June 05, 2020. FINDINGS: Breast Composition: There are scattered areas of fibroglandular density. There are no dominant masses or suspicious calcifications. No other significant abnormalities are identified. There has been no significant change since the prior study. BI/SCRN MAMM (CAD)W/KALI BILAT IMPRESSION: Stable bilateral screening mammogram. Yearly follow-up mammogram recommended. (A) ASSESSMENT CATEGORY: BIRADS Category 1: Negative. A letter regarding these results will be sent to the patient by the facility within 30 days. Approximately 10% of breast cancers are not detected by mammography. A normal mammogram should not delay biopsy of a clinically suspicious abnormality. [id number] Electronically Signed: Lloyd Evans MD at 8:56 EDT ,
== END | disposition home or self-care (01) ==
LOC: OPBI 14:52
PROVIDERS: PCP Internal Medicine; Referring Provider Nurse Practitioner; Visit Provider Nurse Practitioner
DX: Z12.31 Encounter for screening mammogram for malignant neoplasm of breast (principal)
CPT/HCPCS: 77063; 77067

== ENCOUNTER → 2024-03-18 | Outpatient (CLI) | payer MEDICARE, MEDICAID, SELFPAY ==
[2020-06-04 12:24] VITALS: BMI 26.4
--- NOTE | 2024-03-18 14:46 | ART_ITS ---
Reason For Study: Intermittent claudication Procedure A bilateral lower extremity continuous wave Doppler with analog waveform analysis and ankle brachial indexes. Left Segmental Pressures Left posterior tibial artery = 118mmHg. Left dorsalis pedis artery = 121mmHg. Left digit = 65 mmHg. The left dorsalis pedis waveforms are biphasic. The left posterior tibial artery waveforms are biphasic. Right Segmental Pressures Right brachial= 147mmHg. Right posterior tibial artery = 148mmHg. Right dorsalis pedis artery = 143mmHg. Right digit = 89 mmHg. The right dorsalis pedis waveforms are biphasic. The right posterior tibial artery waveforms are biphasic. Indices The right ankle brachial index by the dorsalis pedis is 0.97. The right ankle brachial index by the posterior tibial artery is 1.01. The right digital-brachial index is 0.61. The left ankle brachial index by the dorsalis pedis is 0.82. The left ankle brachial index by the posterior tibial artery is 0.80. The left digital-brachial index is 0.44. VL/Ankle Brachial Index Interpretation Summary Right MATILDE 1.01, normal. Doppler/PVR waveforms of the right ankle mildly diminis hed at rest. TBI diminished, pedal/digit disease vs spasm. Left MATILDE 0.82, moderate arterial insufficiency. Doppler/PVR waveforms of the le ft ankle moderately diminished at rest. Ordering Physician: Desiree Penny Referring Physician: Denise Uribe Performed By: Kathy Alonso RVMira
== END | disposition home or self-care (01) ==
LOC: CVS 14:45
PROVIDERS: PCP Internal Medicine; Referring Provider Nurse Practitioner; Visit Provider Nurse Practitioner
DX: I73.9 Peripheral vascular disease, unspecified (principal)
CPT/HCPCS: 93922

== ENCOUNTER → 2024-03-20 | Outpatient (CLI) | payer MEDICARE, MEDICAID, SELFPAY ==
[2020-06-04 12:24] VITALS: BMI 26.4
[2024-03-20 15:54] LABS: ALB/GLOB Ratio 0.8 RATIO (0.9-2.4); AST(SGOT) 19 U/L (15-37); Alanine Aminotransfer ALT/SGPT 22 U/L (13-56); Albumin, Serum 3.4 g/dL (3.2-5.0); Alkaline Phosphatase 108 U/L (45-117); Anion Gap 8 (5-15); BUN 16 mg/dL (7-18); BUN/Creat Ratio 14.3 RATIO (10-20); Calcium,Total 8.7 mg/dL (8.5-10.1); Chloride 99 mmol/L (98-107); Cholesterol 198 mg/dL (200); Creatinine, Serum 1.12 mg/dL (0.55-1.02); EST Glomerular Filtration Rate 52 mL/min (>60); Est Glom Filt Rate - Afr Amer 62 mL/min (>60); Globulin 4.1 g/dL (2.2-4.2); Glucose 154 mg/dL (74-106); High Density Lipoprotein 54 mg/dL; Potassium 4.2 mmol/L (3.5-5.1); Protein, Total 7.5 g/dL (6.4-8.2); Sodium Level 131 mmol/L (136-145); T4 Free Direct 1.32 ng/dL (0.76-1.46); Triglycerides 396 mg/dL; Very Low Density Lipoprotein 79 mg/dL (5-40)
== END | disposition home or self-care (01) ==
LOC: LAB 14:11
PROVIDERS: PCP Internal Medicine; Referring Provider Nurse Practitioner Family; Visit Provider Nurse Practitioner Family
DX: E87.1 Hypo-osmolality and hyponatremia (principal); E78.5 Hyperlipidemia, unspecified; E03.9 Hypothyroidism, unspecified
CPT/HCPCS: 36415; 80053; 80061; 84439; 84443

== ENCOUNTER → 2024-04-22 | Outpatient (CLI) | payer MEDICARE, MEDICAID, SELFPAY ==
[2020-06-04 12:24] VITALS: BMI 26.4
--- NOTE | 2024-04-22 07:01 | CDU_ITS ---
Reason For Study: Syncope Rt. Velocities/BP Lt. Velocities/BP Prox CCA 133.9/13.3 cm/sec. Prox CCA 126.4/14.5 cm/sec. Mid CCA 97.1/15.7 cm/sec. Mid CCA 80.3/16.7 cm/sec. Dist CCA 74.0/19.0 cm/sec. Dist CCA 78.1/18.9 cm/sec. Prox ICA 78.4/20.1 cm/sec. Prox ICA 169.7/27.0 cm/sec. Mid ICA 65.2/18.6 cm/sec. Mid ICA 174.1/31.4 cm/sec. Dist ICA 101.2/30.6 cm/sec. Dist ICA 104.7/26.2 cm/sec. Rt. ICA/CCA = 1.04. Lt. ICA/CCA = 2.2. Prox ECA 114.5/18.9 cm/sec. Prox ECA 221.1/16.3 cm/sec. Rt. Vert. 53.5/14.2 cm/sec. Lt. Vert. 67.2/10.1 cm/sec. Right Extracranial There is intimal thickening but no significant atherosclerotic plaque noted in the right common carotid artery. There is heterogeneous, irregular atherosclerotic plaque noted in the right internal carotid artery. There is heterogeneous, irregular atherosclerotic plaque noted in the right external carotid artery. Antegrade flow is noted in the right vertebral artery. Left Extracranial There is homogeneous, smooth atherosclerotic plaque noted in the left common carotid artery. There is heterogeneous, irregular atherosclerotic plaque noted in the left internal carotid artery. The left internal carotid artery is very tortuous. There is heterogeneous, irregular atherosclerotic plaque noted in the left external carotid artery. Antegrade flow is noted in the left vertebral artery. Procedure Carotid Duplex [id number]. This is a Carotid Duplex examination using B-mode, color flow and specral Doppler. The study was technically difficult. Exam performed in department. VL/Carotid Duplex Ultrasound Interpretation Summary Mild (<50%) stenosis right extracranial internal carotid. Moderate (50-69%) stenosis left extracranial internal carotid. Patent and antegrade vertebrals bilaterally. Ordering Physician: Humaira Bae Referring Physician: Denise Uribe Performed By: Liang Baez RVT
--- NOTE | 2024-04-22 14:55 | STRESSREP ---
Stress Test Report Date: 04/22/2024 Procedure: Pharmacologic stress nuclear imaging study Indications: Chest pain Consent: Per the patient Procedure: The patient underwent pharmacologic (Regadenoson) evaluation with a peak heart rate of [71] beats per minute (46%predicted maximal heart rate) and a peak blood pressure of 184/76 mmHg. The baseline ECG demonstrated normal sinus rhythm. EKG during lexiscan infusion revealed no significant ischemic changes. EKG post infusion revealed no significant ischemic changes [There were no cardiac dysrhythmias pretest, during pharmacologic infusion, or recovery]. [There was no complaint of chest discomfort during pharmacologic infusion or recovery]. The examination was discontinued secondary to completion of protocol. Impression: 1. Lexiscan stress test test is negative for Lexiscan infusion induced EKG changes of ischemia. 2. Lexiscan stress test test is negative for Lexiscan infusion induced chest pain. 3. Results of the nuclear portion of the test is as below Myocardial perfusion imaging study: Technique: The patient was injected with 11.8 millicuries of technetium 99m Cardiolite and subsequently rest SPECT Cardiolite nuclear imaging was obtained in the horizontal long, vertical long, and short axis views. The patient underwent pharmacologic [Regadenoson 0.4mg] evaluation. Please see above for details. The patient was injected with 34.5 millicuries of technetium 99m Cardiolite and subsequently stress SPECT Cardiolite nuclear imaging was obtained in the horizontal long, vertical long, and short axis views. A gated Cardiolite study at peak stress was obtained. Interpretation: Rest and stress SPECT Cardiolite nuclear imaging status post realignment, normalization, and attenuation correction demonstrate no evidence of significant ischemia or infarction. Gated images reveal no significant regional wall motion abnormalities. The reported LVEF is 67%. Impression: 1. There is no evidence of significant ischemia or infarction. 2. Estimated ejection fraction is 67%. This note was generated with [employer] software. It may contain incorrect words, spelling, and punctuation that were not noted in checking the note before signing.
== END | disposition home or self-care (01) ==
LOC: CVS 07:01
PROVIDERS: PCP Internal Medicine; Referring Provider Physician Assistant Medical; Visit Provider Physician Assistant Medical
DX: R55 Syncope and collapse (principal); R06.09 Other forms of dyspnea; R07.2 Precordial pain
CPT/HCPCS: 78452; 93017; 93880; A9500; A4216; J2785

== ENCOUNTER 2024-05-13 16:21 | Inpatient (IN) | payer MEDICARE, MEDICAID, SELFPAY ==
[2020-06-04 12:24] VITALS: BMI 26.4
[2024-05-13] VITALS (9 sets, daily range): BP systolic 86–127; BP diastolic 53–76; PULSE 70–102; RESP 16–21; TEMP 35.8–36.6; O2SAT 94–100; BMI 30.7; BMI 30.8
[2024-05-13] MEDS: Ondansetron 4 MG/2 ML Vial IV ×2 (16:52→19:00)
[2024-05-13] MEDS: 0.9% Normal Saline (1000mL) 1,000 ML 999 ML IV (16:52)
[2024-05-13] MEDS: Morphine 4 MG/ML Syringe IV (16:53)
--- NOTE | 2024-05-13 17:02 | EX.ED.DYSGE1 ---
HPI History of Present Illness Chief Complaint: Abd Pain Narrative Narrative: Chief complaint and HPI: Abdominal pain. 68-year-old female presents for evaluation of abdominal pain. Patient states for the past several days she has had nausea, vomiting, diarrhea. Family member has similar symptoms. She states today she developed abdominal pain and her abdomen became more distended. She endorses increased burping. Past medical history of cholecystectomy. Patient denies any fever, chills, shortness of breath, chest pain, dysuria. She states her diarrhea is watery and nonbloody. She has not had a bowel movement today. Review of systems: See HPI Medications: As listed on the chart Allergies: As listed on the chart PFSH: Per chart Vital signs: As listed on the chart. Reviewed. Physical exam: Gen: A&O x3, NAD Head: Normocephalic, atraumatic Eyes: No sclera icterus, conjunctiva clear ENT: Mildly dry mucous membranes Neck: Trachea midline, No JVD CV: RRR, no murmurs, no peripheral edema Resp: Lungs CTA BL, no w/r/c GI: Abd soft but taut, distended, tender to palpation diffuse, no rebound or rigidity Musc: Full ROM, no deformity Skin: Warm, dry Neuro: Alert, oriented, grossly intact, sensation intact Psych: Cooperative, appropriate mood and affect [facility] Medical History Bipolar disorder Cough Umbilical hernia Hypothyroidism Hiatal hernia Gout Acute pancreatitis Essential hypertension Atrial fibrillation Overweight (BMI 25.0-29.9) Polyneuropathy due to type 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 GFR 30-59 Fibromyalgia affecting multiple sites Chest pain Shoulder pain, bilateral Hip pain, bilateral Tachybradycardia syndrome Near syncope Generalized OA Atherosclerotic heart disease of [place] coronary artery without angina pectoris Dehydration Abnormal stress test Hypotension Hypomagnesemia Acute kidney injury superimposed on chronic kidney disease Hypertension Chronic pancreatic insufficiency Depression Home Medications ?Medication ?Instructions ?Recorded ?Last Taken ?Type lancets #300 ea 01/24/23 Unknown Rx nitroglycerin 0.4 mg sublingual 0.4 mg sublingual Q5-15M PRN chest 10/04/23 Unknown Rx tablet (Nitrostat) pain #25 tabs carvedilol 6.25 mg tablet 6.25 mg PO BID #180 tabs 10/05/23 05/12/24 Rx blood sugar diagnostic (OneTouch #300 ea 11/29/23 Unknown Rx Verio test strips) blood-glucose meter (OneTouch #1 ea 11/29/23 Unknown Rx Verio Flex Meter) TENS units (TENS 502 device) #1 ea 12/05/23 Unknown Rx colestipol 1 gram tablet 1 g PO DAILY cholesterol #100 tabs 12/05/23 05/12/24 Rx amitriptyline 50 mg tablet 50 mg PO QHS #90 tabs 12/14/23 05/12/24 Rx apixaban 5 mg tablet (Eliquis) 5 mg PO BID #180 tabs 01/02/24 05/12/24 Rx divalproex 125 mg capsule,delayed 125 mg PO BID bipolar #200 caps 02/01/24 05/12/24 Rx release sprinkle atorvastatin 80 mg tablet 80 mg PO QHS Hyperlipidemia #100 02/05/24 05/12/24 Rx tabs albuterol sulfate 90 mcg/actuation 2 puff inhalation Q6H PRN Wheezing 02/27/24 05/12/24 Rx aerosol inhaler #8.5 grams icosapent ethyl 1 gram capsule 2 g (2 x 1 gram) PO BID #120 caps 02/27/24 05/12/24 Rx (Vascepa) levothyroxine 112 mcg tablet 112 mcg PO MOTUWETHFR thyroid #90 02/27/24 05/13/24 Rx tabs pantoprazole 40 mg tablet,delayed 40 mg PO DAILY gerd #90 tabs 02/27/24 05/12/24 Rx release pen needle, diabetic 32 gauge x #400 ea 02/27/24 Unknown Rx /32 (BD Ultra-Fine Sophia Pen Needle) triamterene 37.5 1 tab PO DAILY #90 tabs 02/27/24 05/12/24 Rx mg-hydrochlorothiazide 25 mg tablet allopurinol 100 mg tablet 100 mg PO QHS gout #90 tabs 03/18/24 05/12/24 Rx insulin glargine 100 unit/mL (3 50 unit (0.5 mL) subcut QHS #45 mL 03/18/24 05/12/24 Rx mL) subcutaneous pen (Lantus Solostar U-100 Insulin) nystatin 100,000 unit/gram topical 1 applic topical BID PRN for 03/19/24 05/12/24 Rx powder ([facility]) infectious disease #30 GMS ticagrelor 90 mg tablet 90 mg PO BID 03/20/24 05/12/24 History flash glucose sensor (FreeStyle #6 ea 03/21/24 Unknown Rx Marilyn 14 Day Sensor kit) handicap placard #1 ea 04/16/24 Unknown Rx meclizine 12.5 mg tablet 12.5 - 25 mg (1 - 2 x 12.5 mg) PO 04/22/24 05/12/24 Rx Q8H PRN PRN dizziness #30 tabs losartan 50 mg tablet 50 mg PO DAILY #100 TABLETS 05/07/24 05/12/24 Rx isosorbide mononitrate 30 mg 30 mg PO DAILY #90 tabs 05/08/24 05/12/24 Rx tablet,extended release 24 hr gabapentin 600 mg tablet 600 mg PO BID for neuropathy 05/13/24 05/12/24 History insulin lispro 100 unit/mL 20 unit subcut TID 05/13/24 05/12/24 History subcutaneous pen (Humalog KwikPen (U-100) Insulin) Allergy/AdvReac Type Severity Reaction Status Date / Time duloxetine (From Cymbalta) Allergy Itching Verified 03/26/24 14:07 Environmental Allergies: Allergy Cough Verified 03/26/24 14:07 Uncoded tomato Allergy Itching Verified 03/26/24 14:07 diphenhydramine (From AdvReac Severe other Verified 03/26/24 14:07 Benadryl) isosorbide AdvReac Intermediate Other Verified 03/26/24 14:07 adhesive tape (plastic tape) AdvReac Rash Verified 03/26/24 14:07 semaglutide (From Ozempic) AdvReac Diarrhea Verified 03/26/24 14:07 Family History Sister COPD (chronic obstructive pulmonary disease) Mother COPD (chronic obstructive pulmonary disease) Hypertension Alzheimer's dementia without behavioral disturbance Father Diabetes Hypertension Myocardial infarction Parkinsons disease Surgical History History of surgical procedure History of laparoscopic appendectomy History of total abdominal hysterectomy Hx of cholecystectomy Hx of shoulder surgery Presence of stent in coronary artery (~09/06/21) Social History household members: family current occupational status: retired 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 Smoking Status: Current every day smoker tobacco type: cigarettes Electronic Cigarette Use: not used alcohol intake: never substance use type: does not use caffeine: No what type of physical activity do you participate in: none do you feel safe at home: Yes EXAM Physical Exam Const Vital Signs: 05/13/24 16:21 05/13/24 16:37 05/13/24 17:17 Temperature 96.5 F L Temperature Source Temporal Pulse Rate 86 86 Pulse Rate [Lying] 102 H Pulse Rate [Sitting (for 1 minute prior to obtaining)] 88 Pulse Rate [Standing (for 1 minute prior to obtaining)] 82 Respiratory Rate 20 H 16 Blood Pressure 96/63 124/75 H Blood Pressure [Lying] 120/58 L Blood Pressure [Sitting (for 1 minute prior to obtaining)] 107/63 Blood Pressure [Standing (for 1 minute prior to obtaining)] 86/53 L Blood Pressure Mean 74 91 Blood Pressure Mean [Lying] 78 Blood Pressure Mean [Sitting (for 1 minute prior to obtaining)] 77 Blood Pressure Mean [Standing (for 1 minute prior to obtaining)] 64 Pulse Ox 100 96 Oxygen Delivery Method Room Air Room Air 05/13/24 18:21 05/13/24 19:01 Temperature Temperature Source Pulse Rate 70 80 Pulse Rate [Lying] Pulse Rate [Sitting (for 1 minute prior to obtaining)] Pulse Rate [Standing (for 1 minute prior to obtaining)] Respiratory Rate 16 16 Blood Pressure 127/72 H 116/76 Blood Pressure [Lying] Blood Pressure [Sitting (for 1 minute prior to obtaining)] Blood Pressure [Standing (for 1 minute prior to obtaining)] Blood Pressure Mean 90 89 Blood Pressure Mean [Lying] Blood Pressure Mean [Sitting (for 1 minute prior to obtaining)] Blood Pressure Mean [Standing (for 1 minute prior to obtaining)] Pulse Ox 98 98 Oxygen Delivery Method Room Air Room Air MDM MDM MDM Narrative Medical decision making narrative: 68-year-old female presents for evaluation of abdominal pain. Associated symptoms nausea, vomiting, diarrhea. Differential diagnosis includes was not limited to viral illness, diverticulitis, pancreatitis, gastroenteritis, electrolyte abnormality, UTI, bowel obstruction. NS bolus, morphine, Zofran ordered for symptoms. Abdominal pain workup ordered including CT abdomen and pelvis. CBC with mild leukocytosis of 12.1. No anemia. BMP shows worsening hyponatremia of 124 and hyperkalemia 5.4. Patient has SALVATORE with creatinine of 2.37 as well as lactic acidosis of 2.4. All consistent with dehydration. No transaminitis. Lipase unremarkable. UA negative for UTI. CT abdomen pelvis shows fluid-filled distended small bowel segments, no transition point. Adynamic ileus versus developing or partial SBO. Patient will warrant admission to the hospital for continued hydration as well as observation of her ileus versus SBO. Patient and family updated on the results and confirmed understanding of plan. Patient was discussed with hospice service who accepted admission. Impression: 1. Adynamic ileus versus early SBO 2. Nausea, vomiting, diarrhea 3. SALVATORE 4. Lactic acidosis 5. Hyponatremia 6. Hyperkalemia Lab Data Labs: Laboratory Results - last 24 hr 05/13/24 05/13/24 05/13/24 16:39 16:49 18:41 WBC 12.1 H RBC 4.24 Hgb 12.3 Hct 38.7 MCV 91.3 MCH 29.0 MCHC 31.8 L RDW Std Deviation 55.6 H RDW Coeff of Yaw 16.8 H Plt Count 650 H MPV 9.5 Immature Gran % (Auto) 0.700 Neut % (Auto) 86.5 H Lymph % (Auto) 6.6 L [place] % (Auto) 5.4 Eos % (Auto) 0.4 Baso % (Auto) 0.4 Absolute Neuts (auto) 10.5 H Absolute Lymphs (auto) 0.80 L Nucleated RBC % 0 Sodium 124 L Potassium 5.4 H Chloride 94 L Carbon Dioxide 18.0 L Anion Gap 12 BUN 45 H Creatinine 2.37 H Estim Creat Clear Calc 19.96 Est GFR (MDRD) Af Amer 26 L Est GFR (MDRD) Non-Af 22 L BUN/Creatinine Ratio 19.0 Glucose 339 H Lactic Acid 2.4 H* Calcium 8.6 Total Bilirubin 0.70 AST 34 ALT 29 Alkaline Phosphatase 146 H Total Protein 8.6 H Albumin 3.6 Globulin 5.0 H Albumin/Globulin Ratio 0.7 L Lipase 16 Urine Color Yellow Urine Clarity Cloudy Urine pH 5.0 Ur Specific [place] 1.020 Urine Protein 30 H Urine Glucose (UA) 250 H Urine Ketones Negative Urine Occult Blood 10 H Urine Nitrite Negative Urine Bilirubin Negative Urine Urobilinogen Normal Ur Leukocyte Esterase 25 H Urine RBC 0-5 SEEN Urine WBC 0-5 SEEN Ur Squamous Epith Cells 5-10 SEEN Urine Bacteria 1+ Hyaline Casts 0-5 SEEN Urine Mucus 0 SEEN Radiography Diagnostic Testing: Clinical Impression(s) from Imaging Studies Abdomen/Pelvis CT 05/13/24 18:08 IMPRESSION: 1. Fluid-filled distended small bowel segments, no transition point. Adynamic ileus versus developing or partial SBO are considerations. 2. Normal appearance of the large bowel. 3. Appendicolith in the tip of the appendix however no evidence of acute appendicitis. 4. No evidence of obstructive uropathy or renal calcification. 5. Status post cholecystectomy without ductal dilatation. Electronically Signed: David Lainez MD at 18:44 EST , Discharge Plan Disposition Disposition: Acute Care Hospital [facility] Discharge Date/Time: 05/13/24 20:24
[2024-05-13 17:22] LABS: Absolute Neutrophil Count 10.5 X10^3/uL (2.0-7.7); Basophil# 0.05 X10^3/uL; Basophil% 0.4 % (0-1); Eosinophil# 0.05 X10^3/uL; Eosinophils% 0.4 % (0-5); Hematocrit 38.7 % (37-47); Hemoglobin 12.3 g/dL (12.0-15.0); Lymphocyte % 6.6 % (19-41); Mean Corp Hgb Conc 31.8 g/dL (32-36); Mean Corpuscular Volume 91.3 fL (81-99); Mean Platelet Vol. 9.5 fl (6.2-12.0); Monocyte# 0.65 X10^3/uL; Monocyte% 5.4 % (0-10); NRBC Flagged by Analyzer 0 % (0-5); Neutrophil % 86.5 % (47-70); Platelet Count 650 K/mm3 (150-450); RBC Distribution Width CV 16.8 % (11.6-14.6); RBC Distribution Width SD 55.6 fl (35.1-43.9); Red Blood Count 4.24 M/mm3 (4.2-5.4); White Blood Count 12.1 K/mm3 (4.4-11.0)
[2024-05-13 17:45] LABS: ALB/GLOB Ratio 0.7 RATIO (0.9-2.4); AST(SGOT) 34 U/L (15-37); Alanine Aminotransfer ALT/SGPT 29 U/L (13-56); Albumin, Serum 3.6 g/dL (3.2-5.0); Alkaline Phosphatase 146 U/L (45-117); Anion Gap 12 (5-15); BUN 45 mg/dL (7-18); Calcium,Total 8.6 mg/dL (8.5-10.1); Chloride 94 mmol/L (98-107); Creatinine, Serum 2.37 mg/dL (0.55-1.02); EST Glomerular Filtration Rate 22 mL/min (>60); Est Glom Filt Rate - Afr Amer 26 mL/min (>60); Estimated Creatinine Clearance 19.96 ml/min; Glucose 339 mg/dL (74-106); Lipase 16 U/L (13-75); Potassium 5.4 mmol/L (3.5-5.1); Protein, Total 8.6 g/dL (6.4-8.2); Sodium Level 124 mmol/L (136-145)
--- NOTE | 2024-05-13 18:08 | CT_ITS ---
INDICATION: ABdominal pain EXAMINATION: CT ABDOMEN AND PELVIS WITHOUT CONTRAST - CT Abdomen And Pelvis W/O Contrast Injection TECHNIQUE: Helically acquired images were obtained of the abdomen and pelvis without oral or IV contrast. A radiation dose optimization technique was used for this scan. IV Contrast dosage and agent: None. Oral contrast: None. RADIATION DOSAGE (If Supplied By Facility): CTDIvol = ( 10.83 ) mGy, DLP = ( 546.43 ) mGycm COMPARISON: No pertinent previous examinations for comparison.. FINDINGS: LOWER CHEST: 1. No focal infiltrate or consolidation. Mild pleural parenchymal scar and thickening in the lingula at the LEFT lung base. Additional coarsely calcified granuloma at the LEFT base. 2. No cardiomegaly or pericardial effusion. 3. Cysts coronary vascular calcifications are present. LIVER: The liver has normal configuration and density given the limitation of noncontrast exam.. No focal mass. GALLBLADDER AND BILIARY TREE: Postoperative changes of prior cholecystectomy. No ductal dilatation. PANCREAS: No focal cystic or solid mass. SPLEEN: Normal size without focal cystic or solid mass. ADRENAL GLANDS: No nodules. KIDNEYS AND URETERS: Normal renal size and position. No hydronephrosis. PERITONEUM: No ascites or free air. No other fluid collection. BOWEL: There is fluid distention of the stomach and all segments of small bowel. No distinct transition point noted however findings consistent with adynamic ileus versus developing SBO. No free fluid or free air. Appendicolith is noted however no periappendiceal soft tissue stranding of acute appendicitis. LYMPH NODES: No enlarged mesenteric or retroperitoneal lymph nodes. VESSELS: Aorta is non-dilated. URINARY BLADDER: Unremarkable. REPRODUCTIVE ORGANS: No pelvic masses. ABDOMINAL WALL: No discrete abdominal or pelvic wall hernia. BONES: Mild lumbar spondylosis. There is disc space narrowing endplate sclerosis and marginal osteophyte at L5-S1. No acutely acquired canal stenosis. CT/Abdomen/Pelvis without Cont IMPRESSION: 1. Fluid-filled distended small bowel segments, no transition point. Adynamic ileus versus developing or partial SBO are considerations. 2. Normal appearance of the large bowel. 3. Appendicolith in the tip of the appendix however no evidence of acute appendicitis. 4. No evidence of obstructive uropathy or renal calcification. 5. Status post cholecystectomy without ductal dilatation. Electronically Signed: David Lainez MD at 18:44 EST ,
[2024-05-13 18:10] LABS: Lactic Acid 2.4 mmol/L (0.4-1.9)
[2024-05-13 19:03] LABS: Mucous, Urine 0 SEEN /hpf (<or=2+)
[2024-05-13 19:10] LABS: Color, Urine Yellow (Yellow); Glucose, Dipstick 250 mg/dl (Normal); Ketone-Dipstick Negative (Negative); Leukocyte Esterase-Dipstick 25 /ul (Negative); Nitrite-Dipstick Negative (Negative); Occult Blood-Urine 10 /ul (Negative); Protein-Dipstick 30 mg/dl (Negative); Urine Bilirubin Dipstick Negative (Negative); Urine Clarity Cloudy (Clear); Urine Urobilinogen Normal (Normal)
[2024-05-13 19:26] LABS: Bacteria 1+ /hpf (None Seen); Hyaline Cast 0-5 SEEN /lpf (0-5); Red Blood Cells-Urine 0-5 SEEN /hpf (0-5); Squamous Epithelial Cells - UA 5-10 SEEN /hpf (5-10); White Blood Cells 0-5 SEEN /hpf (0-5)
--- NOTE | 2024-05-13 19:36 | PCM.HP.STD ---
[facility] - General General Date of Admission: 05/13/24 Date of Service: 05/13/24 Chief Complaint: Abdominal Pain. HPI Narrative ASFI DELA CRUZ, is a 68 F with a past medical history of essential hypertension; on losartan, triamterene-HCTZ nand carvedilol, hyperlipidemia; on atorvastatin and vascepa, hypothyroidism; on levothyroxine, history of tobacco abuse, obesity; with BMI of 30.7 present on admission, DM-2; of unknown control on lispro 20U sq TID and glargine 50U sq HS, diabetic neuropathy; on gabapentin, PAF; on apixaban, history of CAD; s/p stents (2021) on ticagrelor and prn ISMO and CKD; stage III, history on gout; on allopurinol, history of bipolar disorder; on amitriptyline and divalproex, history of fibromyalgia, history of gout; on allopurinol, history of vertigo; on prn meclizine, history of chronic pancreatic insufficiency, GERD with history of hiatal hernia; on pantoprazole, history of shoulder surgery, history of MICHAEL, history of laparoscopic appendectomy, history of cholecystectomy and OA who presents to [facility] ER complaining of abdominal pain. Ms. Dela Cruz reports her symptoms began approximately three to four days prior to admission with nausea, vomiting and diarrhea with patient admitting that a family member was recently sick with a similar illness. Then earlier today she developed abdominal pain with significant distention and increased eructation - but with no BM today. She states the diarrhea is watery with no gross blood noted in stool or emesis. She denies associated fever, chills, chest pain, SOB, dysuria, headache or recent antibiotic use. In the ER she was noted to have intractable nausea, vomiting and watery diarrhea due to suspected Viral Gastroenteritis with CT evidence of fluid-filled small bowel segments with no transition point consistent with suspected Adynmaic Ileus vs PSBO with normal appearance of the large bowel and appendicolith in the tip of the appendix without evidence of acute appendicitis complicated by laboratory evidence of Leukocytosis of 12.1K, Thrombocytosis of 650K and Lactic Acidosis of 2.4 mmol/L present on admission along with Hyponatremia of 124 mmol/L, Hyperkalemia of 5.4 mmol/L and Hyponatremia of 124 mmol/L all present on admission compounded by suspected SALVATORE; with elevated serum creatinine of 2.37 mg/dL and BUN of 45 mg/dL present on admission likely due to Dehydration from recent Diarrhea and she was then admitted to the PCU for ongoing care for a stay that is expected to extend beyond 2 midnights. [facility] Medical History Bipolar disorder Cough Umbilical hernia Hypothyroidism Hiatal hernia Gout Acute pancreatitis Essential hypertension Atrial fibrillation Overweight (BMI 25.0-29.9) Polyneuropathy due to type 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 GFR 30-59 Fibromyalgia affecting multiple sites Chest pain Shoulder pain, bilateral Hip pain, bilateral Tachybradycardia syndrome Near syncope Generalized OA Atherosclerotic heart disease of [place] coronary artery without angina pectoris Dehydration Abnormal stress test Hypotension Hypomagnesemia Acute kidney injury superimposed on chronic kidney disease Hypertension Chronic pancreatic insufficiency Depression Home Medications ?Medication ?Instructions ?Recorded ?Last Taken ?Type lancets #300 ea 01/24/23 Unknown Rx nitroglycerin 0.4 mg sublingual 0.4 mg sublingual Q5-15M PRN chest 10/04/23 Unknown Rx tablet (Nitrostat) pain #25 tabs carvedilol 6.25 mg tablet 6.25 mg PO BID #180 tabs 10/05/23 05/12/24 Rx blood sugar diagnostic (OneTouch #300 ea 11/29/23 Unknown Rx Verio test strips) blood-glucose meter (OneTouch #1 ea 11/29/23 Unknown Rx Verio Flex Meter) TENS units (TENS 502 device) #1 ea 12/05/23 Unknown Rx colestipol 1 gram tablet 1 g PO DAILY cholesterol #100 tabs 12/05/23 05/12/24 Rx amitriptyline 50 mg tablet 50 mg PO QHS #90 tabs 12/14/23 05/12/24 Rx apixaban 5 mg tablet (Eliquis) 5 mg PO BID #180 tabs 01/02/24 05/12/24 Rx divalproex 125 mg capsule,delayed 125 mg PO BID bipolar #200 caps 02/01/24 05/12/24 Rx release sprinkle atorvastatin 80 mg tablet 80 mg PO QHS Hyperlipidemia #100 02/05/24 05/12/24 Rx tabs albuterol sulfate 90 mcg/actuation 2 puff inhalation Q6H PRN Wheezing 02/27/24 05/12/24 Rx aerosol inhaler #8.5 grams icosapent ethyl 1 gram capsule 2 g (2 x 1 gram) PO BID #120 caps 02/27/24 05/12/24 Rx (Vascepa) levothyroxine 112 mcg tablet 112 mcg PO MOTUWETHFR thyroid #90 02/27/24 05/13/24 Rx tabs pantoprazole 40 mg tablet,delayed 40 mg PO DAILY gerd #90 tabs 02/27/24 05/12/24 Rx release pen needle, diabetic 32 gauge x #400 ea 02/27/24 Unknown Rx (BD Ultra-Fine Sophia Pen Needle) triamterene 37.5 1 tab PO DAILY #90 tabs 02/27/24 05/12/24 Rx mg-hydrochlorothiazide 25 mg tablet allopurinol 100 mg tablet 100 mg PO QHS gout #90 tabs 03/18/24 05/12/24 Rx insulin glargine 100 unit/mL (3 50 unit (0.5 mL) subcut QHS #45 mL 03/18/24 05/12/24 Rx mL) subcutaneous pen (Lantus Solostar U-100 Insulin) nystatin 100,000 unit/gram topical 1 applic topical BID PRN for 03/19/24 05/12/24 Rx powder ([facility]) infectious disease #30 GMS ticagrelor 90 mg tablet 90 mg PO BID 03/20/24 05/12/24 History flash glucose sensor (FreeStyle #6 ea 03/21/24 Unknown Rx Marilyn 14 Day Sensor kit) handicap placard #1 ea 04/16/24 Unknown Rx meclizine 12.5 mg tablet 12.5 - 25 mg (1 - 2 x 12.5 mg) PO 04/22/24 05/12/24 Rx Q8H PRN PRN dizziness #30 tabs losartan 50 mg tablet 50 mg PO DAILY #100 TABLETS 05/07/24 05/12/24 Rx isosorbide mononitrate 30 mg 30 mg PO DAILY #90 tabs 05/08/24 05/12/24 Rx tablet,extended release 24 hr gabapentin 600 mg tablet 600 mg PO BID for neuropathy 05/13/24 05/12/24 History insulin lispro 100 unit/mL 20 unit subcut TID 05/13/24 05/12/24 History subcutaneous pen (Humalog KwikPen (U-100) Insulin) Allergy/AdvReac Type Severity Reaction Status Date / Time duloxetine (From Cymbalta) Allergy Itching Verified 03/26/24 14:07 Environmental Allergies: Allergy Cough Verified 03/26/24 14:07 Uncoded tomato Allergy Itching Verified 03/26/24 14:07 diphenhydramine (From AdvReac Severe other Verified 03/26/24 14:07 Benadryl) isosorbide AdvReac Intermediate Other Verified 03/26/24 14:07 adhesive tape (plastic tape) AdvReac Rash Verified 03/26/24 14:07 semaglutide (From Ozempic) AdvReac Diarrhea Verified 03/26/24 14:07 Family History Sister COPD (chronic obstructive pulmonary disease) Mother COPD (chronic obstructive pulmonary disease) Hypertension Alzheimer's dementia without behavioral disturbance Father Diabetes Hypertension Myocardial infarction Parkinsons disease Surgical History History of surgical procedure History of laparoscopic appendectomy History of total abdominal hysterectomy Hx of cholecystectomy Hx of shoulder surgery Presence of stent in coronary artery (~09/06/21) Social History household members: family current occupational status: retired 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 Smoking Status: Current every day smoker tobacco type: cigarettes Electronic Cigarette Use: not used alcohol intake: never substance use type: does not use caffeine: No what type of physical activity do you participate in: none do you feel safe at home: Yes Vital Signs Vital Signs Vital Signs: 05/13/24 16:21 05/13/24 16:37 05/13/24 17:17 Temperature 96.5 F L Temperature Source Temporal Pulse Rate 86 86 Pulse Rate [Lying] 102 H Pulse Rate [Sitting (for 1 minute prior to obtaining)] 88 Pulse Rate [Standing (for 1 minute prior to obtaining)] 82 Respiratory Rate 20 H 16 Blood Pressure 96/63 124/75 H Blood Pressure [Lying] 120/58 L Blood Pressure [Sitting (for 1 minute prior to obtaining)] 107/63 Blood Pressure [Standing (for 1 minute prior to obtaining)] 86/53 L Blood Pressure Mean 74 91 Blood Pressure Mean [Lying] 78 Blood Pressure Mean [Sitting (for 1 minute prior to obtaining)] 77 Blood Pressure Mean [Standing (for 1 minute prior to obtaining)] 64 Pulse Ox 100 96 Oxygen Delivery Method Room Air Room Air 05/13/24 18:21 05/13/24 19:01 Temperature Temperature Source Pulse Rate 70 80 Pulse Rate [Lying] Pulse Rate [Sitting (for 1 minute prior to obtaining)] Pulse Rate [Standing (for 1 minute prior to obtaining)] Respiratory Rate 16 16 Blood Pressure 127/72 H 116/76 Blood Pressure [Lying] Blood Pressure [Sitting (for 1 minute prior to obtaining)] Blood Pressure [Standing (for 1 minute prior to obtaining)] Blood Pressure Mean 90 89 Blood Pressure Mean [Lying] Blood Pressure Mean [Sitting (for 1 minute prior to obtaining)] Blood Pressure Mean [Standing (for 1 minute prior to obtaining)] Pulse Ox 98 98 Oxygen Delivery Method Room Air Room Air Weight Weight: 152 lb 1.903 oz Body Mass Index (BMI) 30.7 Results Lab / Micro Data 05/14/24 05:31 05/14/24 05:31 Labs: Laboratory Results - last 24 hr 05/13/24 16:39: WBC 12.1 H, RBC 4.24, Hgb 12.3, Hct 38.7, MCV 91.3, MCH 29.0, MCHC 31.8 L, RDW Std Deviation 55.6 H, RDW Coeff of Yaw 16.8 H, Plt Count 650 H, MPV 9.5, Immature Gran % (Auto) 0.700, Neut % (Auto) 86.5 H, Lymph % (Auto) 6.6 L, Carver % (Auto) 5.4, Eos % (Auto) 0.4, Baso % (Auto) 0.4, Absolute Neuts (auto) 10.5 H, Absolute Lymphs (auto) 0.80 L, Nucleated RBC % 0, Sodium 124 L, Potassium 5.4 H, Chloride 94 L, Carbon Dioxide 18.0 L, Anion Gap 12, BUN 45 H, Creatinine 2.37 H, Estim Creat Clear Calc 19.96, Est GFR (MDRD) Af Amer 26 L, Est GFR (MDRD) Non-Af 22 L, BUN/Creatinine Ratio 19.0, Glucose 339 H, Calcium 8.6, Total Bilirubin 0.70, AST 34, ALT 29, Alkaline Phosphatase 146 H, Total Protein 8.6 H, Albumin 3.6, Globulin 5.0 H, Albumin/Globulin Ratio 0.7 L, Lipase 16 05/13/24 16:49: Lactic Acid 2.4 H* 05/13/24 18:41: Urine Color Yellow, Urine Clarity Cloudy, Urine pH 5.0, Ur Specific [place] 1.020, Urine Protein 30 H, Urine Glucose (UA) 250 H, Urine Ketones Negative, Urine Occult Blood 10 H, Urine Nitrite Negative, Urine Bilirubin Negative, Urine Urobilinogen Normal, Ur Leukocyte Esterase 25 H, Urine RBC 0-5 SEEN, Urine WBC 0-5 SEEN, Ur Squamous Epith Cells 5-10 SEEN, Urine Bacteria 1+, Hyaline Casts 0-5 SEEN, Urine Mucus 0 SEEN Imaging Radiology Impression Abdomen/Pelvis CT 05/13/24 18:08 IMPRESSION: 1. Fluid-filled distended small bowel segments, no transition point. Adynamic ileus versus developing or partial SBO are considerations. 2. Normal appearance of the large bowel. 3. Appendicolith in the tip of the appendix however no evidence of acute appendicitis. 4. No evidence of obstructive uropathy or renal calcification. 5. Status post cholecystectomy without ductal dilatation. Electronically Signed: David Lainez MD at 18:44 EST Reading Location ID and State: [address] [place] [address] Tel , Service support , Assessment & Plan Assessment/Plan (1) Gastroenteritis: (2) Intractable nausea and vomiting: (3) Watery diarrhea: (4) Leukocytosis: QUALIFIERS: Leukocytosis type: unspecified Qualified Code(s): D72.829 - Elevated white blood cell count, unspecified (5) Lactic acidosis: (6) Dehydration: (7) SALVATORE (acute kidney injury): (8) Adverse drug reaction: QUALIFIERS: Encounter type: initial encounter Qualified Code(s): T50.905A - Adverse effect of unspecified drugs, medicaments and biological substances, initial encounter (9) Hyponatremia: (10) Hyperkalemia: (11) Thrombocytosis: PLAN: Plan 1. Intractable Nausea, Vomiting and Watery Diarrhea due to suspected Viral Gastroenteritis with several close family members sick with similar illness and CT evidence of fluid-filled small bowel segments with no transition point consistent with suspected Adynmaic Ileus vs PSBO with normal appearance of the large bowel and appendicolith in the tip of the appendix without evidence of acute appendicitis complicated by laboratory evidence of Leukocytosis of 12.1K and Lactic Acidosis of 2.4 mmol/L present on admission - Admit to PCU under enteric precautions. Check stool studies to confirm infectious etiology of diarrhea. Check daily CBC and serialize lactate to follow trend. 2. SALVATORE; in the setting of known CKD; stage III with elevated serum creatinine of 2.37 mg/dL and BUN of 45 mg/dL present on admission likely due to Dehydration from recent Diarrhea arising from #1 - Aggressively volume resuscitate and recheck renal indices daily to ensure improvement. 3. Hyponatremia of 124 mmol/L likely due to Adverse Drug Reaction to HCTZ complicating #1 & #2 - Give NS IVF and recheck BMP q 6 hours to ensure slow improvement of 8-10 mmol/L per 24 hours. Check serum osmolality and urine osmolality. 4. Hyperkalemia of 5.4 mmol/L present on admission compounding #1 - #3 - Patient's potassium level improved after IVF as she was not able to take Kayexalate. 5. Thrombocytosis of 650K present on admission likely due to acute phase reactant to #1 - #4 - Serialize CBC daily to follow trend. 6. Essential hypertension; on losartan, triamterene-HCTZ and carvedilol - Hold scheduled antihypertensives until volume status and SALVATORE has been corrected. 7. Hyperlipidemia; on atorvastatin and vascepa - Maintain home regimen. 8. Hypothyroidism; on levothyroxine - Continue levothyroxine and check TSH. 9. History of tobacco abuse - Tobacco Cessation will be strongly encouraged with Nicotine patch offered to control cravings. 10. Obesity; with BMI of 30.7 present on admission - Weight loss will be recommended. Check TSH. 11. DM-2; of unknown control on lispro 20U sq TID and glargine 50U sq HS plus diabetic neuropathy; on gabapentin - Keep NPO until GI upset resolves. Check FSBS q. 6 hours plus SSI. Check HgbA1c to objectively assess quality of diabetic control. 12. PAF; on apixaban - Continue apixaban as previous. 13. History of CAD; s/p stents (2021) on ticagrelor and prn ISMO - Stable. Maintain current regimen. 14. History on gout; on allopurinol - Stable with no evidence of acute flare. 15. History of bipolar disorder; on amitriptyline and divalproex - Check divalproex level and continue amitriptyline as before. 16. 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 - Noted. 17. History of vertigo; on prn meclizine - Continue current treatment. 18. History of chronic pancreatic insufficiency - Noted. 19. GERD with history of hiatal hernia; on pantoprazole - Continue PPI IV. 20. History of shoulder surgery - Noted. 21. History of MICHAEL - Noted. 22. History of laparoscopic appendectomy - Noted. 23. History of cholecystectomy - Noted. 24. OA - Stable. 25. DVT prophylaxis - Patient already on apixaban for #12 which will be continued. Total time: Approximately (but not less than) 75 minutes. Charges/Coding Visit Charges Inpatient E&M: 19245 Init Hosp L3
[2024-05-13 21:16] LABS: Reflex Lactate? Y
[2024-05-13 22:25] LABS: Valproic Acid (Depakene) Level 11 ug/mL (50-100)
[2024-05-13 22:35] LABS: Lactic Acid 1.7 mmol/L (0.4-1.9)
[2024-05-13] MEDS: Pantoprazole Sodium 40 MG in 0.9% Normal Saline (100mL MB+) 100 ML 330 MG IV (22:39)
[2024-05-13] MEDS: proMETHazine 25 MG/ML Syringe 6.25 MG IM (22:45)
[2024-05-13] MEDS: 0.9% Saline Lock 10 ML Syringe IV (22:50)
[2024-05-13 23:46] LABS: Blood Gas Specimen Type VEN; O2 Delivery Device Not entered; SITE Not entered; VBG BASE EXCESS -4 mmol/L (-1.0-3.5); VBG Bicarbonate 22 mmol/L (22-26); VBG PO2 48 mmHg (25-40); VBG SO2 80 % (50-70); VBG TCO2 23 mmol/L (23-33); VBG pCO2 41.4 mmHg (41-51); VBG pH 7.33 (7.32-7.42)
[2024-05-13] MEDS: APIXABAN 5 MG TABLET PO (23:57)
[2024-05-13] MEDS: Gabapentin 600 MG Tablet PO (23:58)
[2024-05-13] MEDS: Divalproex Sodium 125 MG SPRINKLE PO (23:58)
[2024-05-13] MEDS: TICAGRELOR 90 MG TABLET PO (23:58)
[2024-05-14] MEDS: Insulin Lispro 100 UNIT/ML INSULN.PEN SC ×4 (00:04→23:45)
[2024-05-14 00:11] LABS: Anion Gap 11 (5-15); BUN 48 mg/dL (7-18); Chloride 95 mmol/L (98-107); Creatinine, Serum 2.09 mg/dL (0.55-1.02); EST Glomerular Filtration Rate 25 mL/min (>60); Est Glom Filt Rate - Afr Amer 30 mL/min (>60); Estimated Creatinine Clearance 22.67 ml/min; Glucose 287 mg/dL (74-106); Potassium 4.8 mmol/L (3.5-5.1); Sodium Level 130 mmol/L (136-145)
[2024-05-14 01:08] LABS: Bedside Glucose 277 mg/dL (74-106)
[2024-05-14 04:35] VITALS: BP 125/76; PULSE 103; RESP 18; TEMP 36.7; O2SAT 97
[2024-05-14] MEDS: Levothyroxine 112 MCG Tablet PO (04:49)
[2024-05-14] MEDS: Acetaminophen 325 MG Tablet 650 MG PO ×2 (04:49→20:36)
[2024-05-14] MEDS: Ondansetron 4 MG/2 ML Vial IV ×2 (04:50→11:11)
[2024-05-14 06:00] VITALS: BMI 30.7
--- NOTE | 2024-05-14 06:05 | RAD_ITS ---
EXAM: XR ABDOMEN, 1 VIEW CLINICAL INDICATION: Ileus vs SBO on CT. TECHNIQUE: Frontal supine view of the abdomen/pelvis. COMPARISON: CT abdomen pelvis 05/13/2024 FINDINGS: LOWER THORAX: No acute pathology. GASTROINTESTINAL TRACT: Mildly dilated small bowel loops. ORGANS: Unremarkable as visualized. No organomegaly. No abnormal calcifications. BONES/JOINTS: No acute pathology. SOFT TISSUES: No acute pathology. RAD/Abdomen Single View (Portable) IMPRESSION: Mildly dilated small bowel loops. Findings may indicate ileus or partial obstruction. Electronically Signed: Nabeel Pearce MD at 7:49 EST ,
[2024-05-14 06:15] LABS: Absolute Lymphocyte Count 0.95 X10^3/uL (0.83-4.51); Absolute Neutrophil Count 4.2 X10^3/uL (2.0-7.7); Basophil# 0.03 X10^3/uL; Basophil% 0.5 % (0-1); Eosinophil# 0.07 X10^3/uL; Eosinophils% 1.2 % (0-5); Hemoglobin 10.8 g/dL (12.0-15.0); Lymphocyte # 0.95 X10^3/ul (0.83-4.51); Mean Corp Hgb Conc 32.7 g/dL (32-36); Mean Corpuscular Volume 88.5 fL (81-99); Mean Platelet Vol. 9.5 fl (6.2-12.0); Monocyte# 0.67 X10^3/uL; Monocyte% 11.3 % (0-10); NRBC Flagged by Analyzer 0.3 % (0-5); Neutrophil % 70.8 % (47-70); POSITIVE MORPHOLOGY YES; Platelet Count 582 K/mm3 (150-450); RBC Distribution Width CV 16.7 % (11.6-14.6); RBC Distribution Width SD 54.1 fl (35.1-43.9); Red Blood Count 3.73 M/mm3 (4.2-5.4); White Blood Count 5.9 K/mm3 (4.4-11.0)
[2024-05-14 06:19] LABS: Differential Indicated SCAN CRITERIA MET
[2024-05-14 06:45] LABS: ALB/GLOB Ratio 0.7 RATIO (0.9-2.4); AST(SGOT) 15 U/L (15-37); Alanine Aminotransfer ALT/SGPT 26 U/L (13-56); Albumin, Serum 3.2 g/dL (3.2-5.0); Alkaline Phosphatase 122 U/L (45-117); Anion Gap 9 (5-15); BUN 49 mg/dL (7-18); BUN/Creat Ratio 23.9 RATIO (10-20); Calcium,Total 7.5 mg/dL (8.5-10.1); Chloride 98 mmol/L (98-107); Creatinine, Serum 2.05 mg/dL (0.55-1.02); EST Glomerular Filtration Rate 26 mL/min (>60); Est Glom Filt Rate - Afr Amer 31 mL/min (>60); Estimated Creatinine Clearance 23.08 ml/min; Globulin 4.3 g/dL (2.2-4.2); Glucose 210 mg/dL (74-106); Magnesium 1.3 mg/dL (1.6-2.6); Phosphorus 3.2 mg/dL (2.5-4.9); Potassium 4.2 mmol/L (3.5-5.1); Protein, Total 7.5 g/dL (6.4-8.2); Sodium Level 129 mmol/L (136-145); Thyroid Stim Hormone (TSH) 0.346 uIU/mL (0.358-3.740)
[2024-05-14 06:49] LABS: Differential Comment SCANNED
[2024-05-14 06:53] VITALS: O2SAT 95
--- NOTE | 2024-05-14 07:43 | PN.HOSP_ITS ---
Reason for Visit Reason for Visit: Diagnoses Hypo-osmolality and hyponatremia (05/13/24) Acidosis (05/13/24) Hyperkalemia (05/13/24) Acute kidney failure, unspecified (05/13/24) Subjective Subjective Patient with ongoing abdominal discomfort, still mild distention with no marked output and decreased flatus still although she does report that the distention is mildly improved since initial ED arrival. Discussed plan of care which included involvement of surgery for concern for possible developing SBO versus ileitis to be cautious to which she is understanding and amenable. She does admit also to nausea without emesis. She describes her abdominal discomfort as primarily cramping in nature. Patient denies fevers, chills, chest pain or dyspnea. Objective Data Objective Data Vital Signs: Vital Signs Temp Pulse Resp BP Pulse Ox O2 Del Method 98.1 F 103 H 18 125/76 H 97 Room Air 05/14/24 04:35 05/14/24 04:35 05/14/24 04:35 05/14/24 04:35 05/14/24 04:35 05/14/24 04:38 Oxygen Delivery Method Room Air Weight: 152 lb 1.903 oz Body Mass Index (BMI) 30.7 Intake & Output: Intake and Output for Last 24 Hours 05/12/24 05/13/24 05/14/24 23:59 23:59 23:59 Intake Total 1170 / 1170 Balance 1170 / 1170 Lab / Micro Data 05/14/24 05:31 05/14/24 11:00 Labs: Laboratory Results - last 24 hr 05/13/24 16:39: WBC 12.1 H, RBC 4.24, Hgb 12.3, Hct 38.7, MCV 91.3, MCH 29.0, M CHC 31.8 L, RDW Std Deviation 55.6 H, RDW Coeff of Yaw 16.8 H, Plt Count 650 H, MPV 9.5, Immature Gran % (Auto) 0.700, Neut % (Auto) 86.5 H, Lymph % (Auto) 6.6 L, [place] % (Auto) 5.4, Eos % (Auto) 0.4, Baso % (Auto) 0.4, Absolute Neuts (auto) 10.5 H, Absolute Lymphs (auto) 0.80 L, Nucleated RBC % 0, Sodium 124 L, P otassium 5.4 H, Chloride 94 L, Carbon Dioxide 18.0 L, Anion Gap 12, BUN 45 H, C reatinine 2.37 H, Estim Creat Clear Calc 19.96, Est GFR (MDRD) Af Amer 26 L, Est GFR (MDRD) Non-Af 22 L, BUN/Creatinine Ratio 19.0, Glucose 339 H, Calcium 8.6, Total Bilirubin 0.70, AST 34, ALT 29, Alkaline Phosphatase 146 H, Total Protein 8.6 H, Albumin 3.6, Globulin 5.0 H, Albumin/Globulin Ratio 0.7 L, Lipase 16 05/13/24 16:49: Lactic Acid 2.4 H* 05/13/24 18:41: Urine Color Yellow, Urine Clarity Cloudy, Urine pH 5.0, Ur Specific [place] 1.020, Urine Protein 30 H, Urine Glucose (UA) 250 H, Urine Ketones Negative, Urine Occult Blood 10 H, Urine Nitrite Negative, Urine Bilirubin Negative, Urine Urobilinogen Normal, Ur Leukocyte Esterase 25 H, Urine RBC 0-5 SEEN, Urine WBC 0-5 SEEN, Ur Squamous Epith Cells 5-10 SEEN, Urine Bacteria 1+, Hyaline Casts 0-5 SEEN, Urine Mucus 0 SEEN 05/13/24 21:50: Lactic Acid 1.7, Valproic Acid 11 L 05/13/24 22:12: POC Glucose 277 H 05/13/24 23:30: Sodium 130 L, Potassium 4.8, Chloride 95 L, Carbon Dioxide 24.0, Anion Gap 11, BUN 48 H, Creatinine 2.09 H, Estim Creat Clear Calc 22.67, Est GFR (MDRD) Af Amer 30 L, Est GFR (MDRD) Non-Af 25 L, BUN/Creatinine Ratio 23.0 H, G lucose 287 H, Calcium 8.0 L 05/14/24 05:31: WBC 5.9, RBC 3.73 L, Hgb 10.8 L, Hct 33.0 L, MCV 88.5, MCH 29.0, MCHC 32.7, RDW Std Deviation 54.1 H, RDW Coeff of Yaw 16.7 H, Plt Count 582 H, MPV 9.5, Immature Gran % (Auto) 0.200, Neut % (Auto) 70.8 H, Lymph % (Auto) 16.0 L, [place] % (Auto) 11.3 H, Eos % (Auto) 1.2, Baso % (Auto) 0.5, Absolute Neuts (auto) 4.2, Absolute Lymphs (auto) 0.95, Nucleated RBC % 0.3, Differential Comment SCANNED, Sodium 129 L, Potassium 4.2, Chloride 98, Carbon Dioxide 22.0, Anion Gap 9, BUN 49 H, Creatinine 2.05 H, Estim Creat Clear Calc 23.08, Est GFR (MDRD) Af Amer 31 L, Est GFR (MDRD) Non-Af 26 L, BUN/Creatinine Ratio 23.9 H, G lucose 210 H, Calcium 7.5 L, Phosphorus 3.2, Magnesium 1.3 L, Total Bilirubin 0.80, AST 15, ALT 26, Alkaline Phosphatase 122 H, Total Protein 7.5, Albumin 3.2, Globulin 4.3 H, Albumin/Globulin Ratio 0.7 L, TSH 0.346 L ABG Data ABG results: ABG 05/13/24 23:43 Specimen Type FRIEDA Sample Site Not entered VBG pH 7.33 VBG pO2 48 H VBG HCO3 22 VBG Total CO2 23 VBG O2 Sat (Calc) 80 H VBG Base Excess -4 L POC Mix VBG pCO2 Pt Tmp 41.4 O2 Delivery Device Not entered Radiography Diagnostic Testing: Radiology Impression Abdomen/Pelvis CT 05/13/24 18:08 IMPRESSION: 1. Fluid-filled distended small bowel segments, no transition point. Adynamic ileus versus developing or partial SBO are considerations. 2. Normal appearance of the large bowel. 3. Appendicolith in the tip of the appendix however no evidence of acute appendicitis. 4. No evidence of obstructive uropathy or renal calcification. 5. Status post cholecystectomy without ductal dilatation. Electronically Signed: David Lainez MD at 18:44 EST , Physical Exam Narrative Physical Examination: General: Awake, alert, oriented x 3 and cooperative, seated upright in PCU bed, uncomfortable appearing although she notes recent pain medications of significantly improved her pain and it is only notable with palpation of the abdomen. Skin: Normal color, normal turgor, no icterus, no cyanosis except occasional stage ecchymoses, abrasion likely from lab draws. HEENT: AT/NC, EOMI, PERRLA, dry MM. Lungs: Mild diminished, greater bases, proper effort, no rales, ronchi or wheezing. Heart: Regular rate and rhythm; no gallop, rub audible. Abdomen: Soft, generalized discomfort with no rebound, voluntary guarding, worse in the lower quadrants, more firm but not severely distended, bowel sounds absent on the right side, high-pitched left lower quadrant. Extremities: No cyanosis, no clubbing, no marked peripheral edema. Neurological: Patient awake, alert, oriented as noted, cognitive function intact; pupils equally reactive to light and accommodation, cranial nerves gross normal, moving all 4 extremities, no focal deficits, strength moderately to severely globally decreased Psychiatric: Affect appears flat, fatigued, no acute evidence of depressive or anxiety feelings. Assessment & Plan Assessment/Plan (1) Intractable nausea and vomiting: PLAN: Plan The patient is a 68 y/o F w/ PMHx: HTN, HLD, Hypothyroidism, Tobacco use, Obesity, Diabetes mellitus type II with chronic neuropathy, PAF, CAD s/p PCI, CKD stage III unclear subtype, Gout, Anxiety and Depression/Bipolar disorder, GERD who presents to the [facility] ED on 05/13/24 with abdominal pain, nausea, emesis, diarrhea with family members with similar symptoms. #1. Acute Abdominal pain with associated nausea, emesis, diarrhea with family members with similar symptoms with questionable adynamic ileus versus developing a partial small bowel obstruction with associated lactic acidosis: ED evaluation with CT abdomen and pelvis with fluid-filled distended small bowel segments with no transition point with questionable adynamic ileus versus developing or partial small bowel obstruction, normal appearance large bowel, appendicolith in the tip the appendix however no evidence of appendicitis, evidence status post cholecystectomy without ductal dilatation, admission CBC with WBC 12.1, hemoglobin 12.3, platelets 650 with left shift, admission CMP with sodium 124, potassium 5.4 however moderately hemolyzed thus falsely elevated, chloride 94, At 18, BUN/creatinine 45/2.37, GFR 22, glucose 339, lactic acid 2.4, hepatic profile with alk phos 146, lipase 16, urinalysis with no obvious evidence of UTI. Admitted to telemetry, continued hydration, lactic acid trended down to 1.7, CBC improved with 05/10/2024 WBC 5.9 with lessening left shift, requested enteric, C. difficile, ova and parasite stool studies, will maintain n.p.o. status, surgery consultation requested to be cautious given notable intra- abdominal surgical history in addition to repeat 05/14/2020 4 AM KUB with mildly dilated small bowel loops again possible indicative of ileus or partial obstruction #2. Acute hyponatremia, hypochloremia, suspected hypovolemic etiology given acute presentation number 1: Admission sodium 124, chloride 94, continued aggressive hydration with repeat 05/14/2024 sodium 129, chloride 98, continue to closely monitor, continue IV fluids. #3. Acute kidney injury on CKD stage III unclear subtype per GFR trend: Secondary to acute presentation as noted, poor intake. Admission BUN/Cr 45/2.37, GFR 22, prior baseline creatinine noted to be 1.1-1.5 although has vacillated. Will continue hydration, hold nephrotoxic medication, will obtain FeNa assessment, urinalysis not marked appearing, no evidence of obstructive process on CT abdomen and pelvis. 05/14/2024 BUN/creatinine 29/2.05, GFR 26. If clinically not improving low threshold to involve nephrology. #4. PAF: Currently Coreg held, maintained on Eliquis but given current presentation may require NG tube with complete n.p.o. status thus would transition at that time to chemoprophylactic regimen or could consider heparin drip however patient is primarily on this for paroxysmal A-fib only and no VTE history. #5. CAD: S/p PCI, currently continued on Eliquis and Brilinta, statin, Coreg, losartan held, given current presentation may need to consider NG tube placement with complete n.p.o. status however awaiting surgery evaluation. #6. Chronic normocytic anemia: Admission hemoglobin 12.3, MCV 91.3 however falsely decreased given dehydrated status, 05/14/2024 hemoglobin 10.8, MCV 88.5, baseline hemoglobin previous to this 9-10, stable, continue to trend. #7. Anxiety and Depression/Bipolar disorder: Currently continued on Depakote regimen however given status may need to consider complete n.p.o. transition with NG tube however awaiting surgery evaluation. #8. Diabetes mellitus type II with chronic neuropathy: Hold oral home regimen, continue home insulin regimen with one half dosing while n.p.o. or if hypoglycemic low threshold to hold, n.p.o. status, accu checks w/ ISS, continue gabapentin however given current status pending surgery evaluation may need to consider NG tube with n.p.o. status completely. #9. Hypothyroidism: Currently continued on levothyroxine regimen however may need to consider NG tube with n.p.o. status completely pending surgery evaluation. #10. Hypertension: Currently continued on isosorbide, upon initial presentation both Coreg, hydrochlorothiazide and losartan held, may need to consider complete n.p.o. status with NG tube placement pending surgery evaluation #11. Hyperlipidemia: Statin temporarily held. Add back once clinically appropriate. #12. Obesity: Weight loss and lifestyle changes encouraged. #13. Tobacco Abuse: Encouraged cessation, inpatient consultation per RT, NR if desired. #14. GERD: Maintained on IV PPI. #15. DVT prophylaxis: As noted currently still continued outpatient Eliquis regimen however if complete n.p.o. status with NG tube placement required will need to transition to chemoprophylaxis. Charges/Coding Visit Charges Inpatient E&M: 61417 Subs Hosp L3
[2024-05-14 08:44] LABS: Hemoglobin A1c 8.8 % (3.8-5.6)
[2024-05-14 09:04] VITALS: BP 121/51; PULSE 91; RESP 16; TEMP 36.6; O2SAT 94
--- NOTE | 2024-05-14 09:09 | EKG12_ITS ---
Test Reason : CP Blood Pressure : */* mmHG Vent. Rate : 92 BPM Atrial Rate : 92 BPM P-R Int : 152 ms QRS Dur : 104 ms QT Int : 366 ms P-R-T Axes : 52 -56 53 degrees QTcB Int : 452 ms Sinus rhythm with Premature atrial complexes Left axis deviation Incomplete right bundle branch block Abnormal ECG Confirmed by LANNY LOPEZ, PANKAJ ([id number]), magazine editor SANDY DORADO ([id number]) on 05/17/2024 6:12:26 AM Referred By: KEITH Confirmed By: PANKAJ CA MD
[2024-05-14] MEDS: proMETHazine 25 MG/ML Syringe 6.25 MG IM (09:23)
[2024-05-14] MEDS: Pantoprazole Sodium 40 MG in 0.9% Normal Saline (100mL MB+) 100 ML 330 MG IV (09:25)
[2024-05-14] MEDS: Morphine 2 MG/ML Syringe IV (09:26)
[2024-05-14] MEDS: 0.9% Saline Lock 10 ML Syringe IV ×2 (09:26→11:11)
[2024-05-14 10:36] LABS: Osmolality, Serum 301 mOsm/KG (280-301)
[2024-05-14 11:08] VITALS: BP 127/82
[2024-05-14] MEDS: Gabapentin 600 MG Tablet PO ×2 (11:10→22:41)
[2024-05-14] MEDS: APIXABAN 5 MG TABLET PO ×2 (11:11→22:41)
[2024-05-14] MEDS: TICAGRELOR 90 MG TABLET PO ×2 (11:12→22:41)
[2024-05-14] MEDS: Divalproex Sodium 125 MG SPRINKLE PO ×2 (11:12→22:41)
[2024-05-14] MEDS: Isosorbide Mononitrate 30 MG Tablet PO (11:12)
[2024-05-14 11:17] LABS: Anion Gap 9 (5-15); BUN 51 mg/dL (7-18); BUN/Creat Ratio 26.6 RATIO (10-20); Calcium,Total 7.1 mg/dL (8.5-10.1); Chloride 100 mmol/L (98-107); Creatinine, Serum 1.92 mg/dL (0.55-1.02); EST Glomerular Filtration Rate 28 mL/min (>60); Est Glom Filt Rate - Afr Amer 33 mL/min (>60); Estimated Creatinine Clearance 24.64 ml/min; Glucose 190 mg/dL (74-106); Potassium 4.1 mmol/L (3.5-5.1); Sodium Level 132 mmol/L (136-145)
[2024-05-14] MEDS: Magnesium Sulfate 2 GM in Dextrose 5%-Water (100mL Bag) 100 ML IV (11:20)
[2024-05-14 12:01] LABS: Ionized Calcium Order ORDER TUBE
--- NOTE | 2024-05-14 13:19 | CON.PCM.SX_ITS ---
Assessment & Plan Assessment/Plan (1) Nausea vomiting and diarrhea: PLAN: Plan The patient is a 68-year-old female who presented with abdominal pain, nausea, and vomiting, and diarrhea. This has been occurring for several days. She does admit that multiple family members that she has been around recently have also had similar symptoms. She presented to the emergency room due to worsening abdominal pain and bloating. Imaging seems to indicate ileus versus partial small bowel obstruction. She does have a history of multiple abdominal surgeries indicating the possibility of adhesions. Looking at the overall picture, I would tend to favor ileus over a partial small bowel obstruction. At this point I would recommend a conservative/nonoperative approach. I would recommend keeping her n.p.o. I did offer her the option of nasogastric tube as I felt that this may improve her symptoms however she refuses. I would encourage ambulation. At this point due to her nausea, I would not recommend small bowel follow-through. Would continue n.p.o. and close observation for now. We will continue to follow along and advise accordingly. HPI Consult Data Date of Consult: 05/14/24 HPI Narrative Reason for Consultation: Ileus versus partial small bowel obstruction HPI Narrative: ASIF CASTRO, is a 68 F who presented to the emergency department with symptoms of nausea, vomiting, abdominal pain, and diarrhea. She states that her symptoms began about 3 to 4 days prior to admission. She also admits that multiple family members were also recently sick with a similar GI illness.. On the day of admission, she stated that her pain and abdominal distention increased. She was not passing any flatus or bowel movement. Initially her stools were quite watery and very foul-smelling and unusual in her opinion. With the symptoms she presented to the emergency room for further evaluation and treatment. She was seen and evaluated by the ER staff. Her white blood cell count was slightly elevated but has since returned to normal. CT scan as well as abdominal x-ray has been performed since her admission and both seem to indicate probable ileus versus early partial small bowel obstruction.. An appendicolith was noted in the appendix but no associated stranding was noted. Since admission patient continues to have abdominal distention and pain and has not been passing any flatus. She has had some nausea couple episodes of emesis yesterday. She has refused NG tube placement. General surgery consult was obtained for further evaluation and treatment. She has had multiple previous abdominal surgeries. She denies having any previous small bowel obstructions to her knowledge [facility] Medical History Bipolar disorder Cough Umbilical hernia Hypothyroidism Hiatal hernia Gout Acute pancreatitis Essential hypertension Atrial fibrillation Overweight (BMI 25.0-29.9) Polyneuropathy due to type 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 GFR 30-59 Fibromyalgia affecting multiple sites Chest pain Shoulder pain, bilateral Hip pain, bilateral Tachybradycardia syndrome Near syncope Generalized OA Atherosclerotic heart disease of [place] coronary artery without angina pectoris Dehydration Abnormal stress test Hypotension Hypomagnesemia Acute kidney injury superimposed on chronic kidney disease Hypertension Chronic pancreatic insufficiency Depression Home Medications ?Medication ?Instructions ?Recorded ?Last Taken ?Type lancets #300 ea 01/24/23 Unknown Rx nitroglycerin 0.4 mg sublingual 0.4 mg sublingual Q5-15M PRN chest 10/04/23 Unknown Rx tablet (Nitrostat) pain #25 tabs carvedilol 6.25 mg tablet 6.25 mg PO BID #180 tabs 10/05/23 05/12/24 Rx blood sugar diagnostic (OneTouch #300 ea 11/29/23 Unknown Rx Verio test strips) blood-glucose meter (OneTouch #1 ea 11/29/23 Unknown Rx Verio Flex Meter) TENS units (TENS 502 device) #1 ea 12/05/23 Unknown Rx colestipol 1 gram tablet 1 g PO DAILY cholesterol #100 tabs 12/05/23 05/12/24 Rx amitriptyline 50 mg tablet 50 mg PO QHS #90 tabs 12/14/23 05/12/24 Rx apixaban 5 mg tablet (Eliquis) 5 mg PO BID #180 tabs 01/02/24 05/12/24 Rx divalproex 125 mg capsule,delayed 125 mg PO BID bipolar #200 caps 02/01/24 05/12/24 Rx release sprinkle atorvastatin 80 mg tablet 80 mg PO QHS Hyperlipidemia #100 02/05/24 05/12/24 Rx tabs albuterol sulfate 90 mcg/actuation 2 puff inhalation Q6H PRN Wheezing 02/27/24 05/12/24 Rx aerosol inhaler #8.5 grams icosapent ethyl 1 gram capsule 2 g (2 x 1 gram) PO BID #120 caps 02/27/24 05/12/24 Rx (Vascepa) levothyroxine 112 mcg tablet 112 mcg PO MOTUWETHFR thyroid #90 02/27/24 05/13/24 Rx tabs pantoprazole 40 mg tablet,delayed 40 mg PO DAILY gerd #90 tabs 02/27/24 05/12/24 Rx release pen needle, diabetic 32 gauge x #400 ea 02/27/24 Unknown Rx (BD Ultra-Fine Sophia Pen Needle) triamterene 37.5 1 tab PO DAILY #90 tabs 02/27/24 05/12/24 Rx mg-hydrochlorothiazide 25 mg tablet allopurinol 100 mg tablet 100 mg PO QHS gout #90 tabs 03/18/24 05/12/24 Rx insulin glargine 100 unit/mL (3 50 unit (0.5 mL) subcut QHS #45 mL 03/18/24 05/12/24 Rx mL) subcutaneous pen (Lantus Solostar U-100 Insulin) nystatin 100,000 unit/gram topical 1 applic topical BID PRN for 03/19/24 05/12/24 Rx powder ([facility]) infectious disease #30 GMS ticagrelor 90 mg tablet 90 mg PO BID 03/20/24 05/12/24 History flash glucose sensor (FreeStyle #6 ea 03/21/24 Unknown Rx Marilyn 14 Day Sensor kit) handicap placard #1 ea 04/16/24 Unknown Rx meclizine 12.5 mg tablet 12.5 - 25 mg (1 - 2 x 12.5 mg) PO 04/22/24 05/12/24 Rx Q8H PRN PRN dizziness #30 tabs losartan 50 mg tablet 50 mg PO DAILY #100 TABLETS 05/07/24 05/12/24 Rx isosorbide mononitrate 30 mg 30 mg PO DAILY #90 tabs 05/08/24 05/12/24 Rx tablet,extended release 24 hr gabapentin 600 mg tablet 600 mg PO BID for neuropathy 05/13/24 05/12/24 History insulin lispro 100 unit/mL 20 unit subcut TID 05/13/24 05/12/24 History subcutaneous pen (Humalog KwikPen (U-100) Insulin) Allergy/AdvReac Type Severity Reaction Status Date / Time duloxetine (From Cymbalta) Allergy Itching Verified 03/26/24 14:07 Environmental Allergies: Allergy Cough Verified 03/26/24 14:07 Uncoded tomato Allergy Itching Verified 03/26/24 14:07 diphenhydramine (From AdvReac Severe other Verified 03/26/24 14:07 Benadryl) isosorbide AdvReac Intermediate Other Verified 03/26/24 14:07 adhesive tape (plastic tape) AdvReac Rash Verified 03/26/24 14:07 semaglutide (From Ozempic) AdvReac Diarrhea Verified 03/26/24 14:07 Family History Sister COPD (chronic obstructive pulmonary disease) Mother COPD (chronic obstructive pulmonary disease) Hypertension Alzheimer's dementia without behavioral disturbance Father Diabetes Hypertension Myocardial infarction Parkinsons disease Surgical History History of surgical procedure History of laparoscopic appendectomy History of total abdominal hysterectomy Hx of cholecystectomy Hx of shoulder surgery Presence of stent in coronary artery (~09/06/21) Social History household members: family current occupational status: retired 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 Smoking Status: Current every day smoker tobacco type: cigarettes Electronic Cigarette Use: not used alcohol intake: never substance use type: does not use caffeine: No what type of physical activity do you participate in: none do you feel safe at home: Yes ROS Eyes Eyes: Reports systems reviewed and no addt'l complaints, except as documented ENT HEENT: Reports systems reviewed and no addt'l complaints, except as documented Cardiovascular Cardiovascular: Reports systems reviewed and no addt'l complaints, except as documented Respiratory/Chest Respiratory/Chest: Reports systems reviewed and no addt'l complaints, except as documented Gastrointestinal Gastrointestinal: Reports systems reviewed and no addt'l complaints, except as documented Genitourinary Genitourinary: Reports systems reviewed and no addt'l complaints, except as documented Musculoskeletal Musculoskeletal: Reports systems reviewed and no addt'l complaints, except as documented Integumentary Integumentary: Reports systems reviewed and no addt'l complaints, except as documented Physical Exam Narrative The patient is alert and oriented x 3. She is in no acute distress. Abdomen is soft but distended. There is mild diffuse tenderness to palpation. There is no rebound or guarding or other peritoneal signs. Lab / Micro Data 05/14/24 05:31 05/14/24 11:00 Labs: Laboratory Results - last 24 hr 05/13/24 16:39: WBC 12.1 H, RBC 4.24, Hgb 12.3, Hct 38.7, MCV 91.3, MCH 29.0, M CHC 31.8 L, RDW Std Deviation 55.6 H, RDW Coeff of Yaw 16.8 H, Plt Count 650 H, MPV 9.5, Immature Gran % (Auto) 0.700, Neut % (Auto) 86.5 H, Lymph % (Auto) 6.6 L, [place] % (Auto) 5.4, Eos % (Auto) 0.4, Baso % (Auto) 0.4, Absolute Neuts (auto) 10.5 H, Absolute Lymphs (auto) 0.80 L, Nucleated RBC % 0, Sodium 124 L, P otassium 5.4 H, Chloride 94 L, Carbon Dioxide 18.0 L, Anion Gap 12, BUN 45 H, C reatinine 2.37 H, Estim Creat Clear Calc 19.96, Est GFR (MDRD) Af Amer 26 L, Est GFR (MDRD) Non-Af 22 L, BUN/Creatinine Ratio 19.0, Glucose 339 H, Calcium 8.6, Total Bilirubin 0.70, AST 34, ALT 29, Alkaline Phosphatase 146 H, Total Protein 8.6 H, Albumin 3.6, Globulin 5.0 H, Albumin/Globulin Ratio 0.7 L, Lipase 16 05/13/24 16:49: Lactic Acid 2.4 H* 05/13/24 18:41: Urine Color Yellow, Urine Clarity Cloudy, Urine pH 5.0, Ur Specific [place] 1.020, Urine Protein 30 H, Urine Glucose (UA) 250 H, Urine Ketones Negative, Urine Occult Blood 10 H, Urine Nitrite Negative, Urine Bilirubin Negative, Urine Urobilinogen Normal, Ur Leukocyte Esterase 25 H, Urine RBC 0-5 SEEN, Urine WBC 0-5 SEEN, Ur Squamous Epith Cells 5-10 SEEN, Urine Bacteria 1+, Hyaline Casts 0-5 SEEN, Urine Mucus 0 SEEN 05/13/24 21:50: Lactic Acid 1.7, Valproic Acid 11 L 05/13/24 22:12: POC Glucose 277 H 05/13/24 23:30: Sodium 130 L, Potassium 4.8, Chloride 95 L, Carbon Dioxide 24.0, Anion Gap 11, BUN 48 H, Creatinine 2.09 H, Estim Creat Clear Calc 22.67, Est GFR (MDRD) Af Amer 30 L, Est GFR (MDRD) Non-Af 25 L, BUN/Creatinine Ratio 23.0 H, G lucose 287 H, Calcium 8.0 L 05/14/24 05:31: WBC 5.9, RBC 3.73 L, Hgb 10.8 L, Hct 33.0 L, MCV 88.5, MCH 29.0, MCHC 32.7, RDW Std Deviation 54.1 H, RDW Coeff of Yaw 16.7 H, Plt Count 582 H, MPV 9.5, Immature Gran % (Auto) 0.200, Neut % (Auto) 70.8 H, Lymph % (Auto) 16.0 L, [place] % (Auto) 11.3 H, Eos % (Auto) 1.2, Baso % (Auto) 0.5, Absolute Neuts (auto) 4.2, Absolute Lymphs (auto) 0.95, Nucleated RBC % 0.3, Differential Comment SCANNED, Sodium 129 L, Potassium 4.2, Chloride 98, Carbon Dioxide 22.0, Anion Gap 9, BUN 49 H, Creatinine 2.05 H, Estim Creat Clear Calc 23.08, Est GFR (MDRD) Af Amer 31 L, Est GFR (MDRD) Non-Af 26 L, BUN/Creatinine Ratio 23.9 H, G lucose 210 H, Hemoglobin A1c 8.8 H, Serum Osmolality 301, Calcium 7.5 L, Phosphorus 3.2, Magnesium 1.3 L, Total Bilirubin 0.80, AST 15, ALT 26, Alkaline Phosphatase 122 H, Total Protein 7.5, Albumin 3.2, Globulin 4.3 H, A lbumin/Globulin Ratio 0.7 L, TSH 0.346 L 05/14/24 11:00: Sodium 132 L, Potassium 4.1, Chloride 100, Carbon Dioxide 24.0, Anion Gap 9, BUN 51 H, Creatinine 1.92 H, Estim Creat Clear Calc 24.64, Est GFR (MDRD) Af Amer 33 L, Est GFR (MDRD) Non-Af 28 L, BUN/Creatinine Ratio 26.6 H, G lucose 190 H, Calcium 7.1 L 05/14/24 11:10: Ionized Calcium 1.00 L ABG Data ABG results: ABG 05/13/24 23:43 Specimen Type FRIEDA Sample Site Not entered VBG pH 7.33 VBG pO2 48 H VBG HCO3 22 VBG Total CO2 23 VBG O2 Sat (Calc) 80 H VBG Base Excess -4 L POC Mix VBG pCO2 Pt Tmp 41.4 O2 Delivery Device Not entered Imaging Radiology Impression Abdomen/Pelvis CT 05/13/24 18:08 IMPRESSION: 1. Fluid-filled distended small bowel segments, no transition point. Adynamic ileus versus developing or partial SBO are considerations. 2. Normal appearance of the large bowel. 3. Appendicolith in the tip of the appendix however no evidence of acute appendicitis. 4. No evidence of obstructive uropathy or renal calcification. 5. Status post cholecystectomy without ductal dilatation. Electronically Signed: David Lainez MD at 18:44 EST , KUB X-Ray 05/14/24 06:05 IMPRESSION: Mildly dilated small bowel loops. Findings may indicate ileus or partial obstruction. Electronically Signed: Nabeel Pearce MD at 7:49 EST , Charges/Coding Visit Charges Inpatient E&M: 42510 Init Hosp L3
--- NOTE | 2024-05-14 13:29 | CASEMGMT ---
RN THOMPSON Assessment Face to Face with patient for initial transition planning/care coordination assessment. RN THOMPSON introduced self and role at [facility], pt voices understanding. Pt is A&Ox4 and is resting comfortably in bed and is calm. Care providers, pharmacy, and demographics verified. Admitting dx: SALVATORE FLORES Strata: 3 PCP:Mika Uribe Specialists: [facility], Dr. Garcia ([place]), ENT ([place]), Neuro in [place] (Unsure of name) Preferred Pharmacy: [facility] Insurance: [facility] Dual, [facility] Prescription Benefit: Yes LNOK: Lisa Lawson ([place]) Living Arrangements: Pt lives with her mother and daughter in a small trailer with a ramp to enter. Pt states that she is the primary caregiver for her mother ADLs/IADLs: States Mostly independent. However, pt states that she gets dizzy and weak when she gets up currently. Transportation: Self, neighbors/ friends DME: CBGM and insulin shots. BGM with sufficient supplies as a backup. Canes, W/C, BP machine, FWW x2, scooter. HHC/SNF: Reports home care through her insurance that was discontinued. Denies SNF history Pt?s goal: Return home to care for her mother Plan: Anticipate return home once medically ready. Pt refuses SNF and HHC at this time. Pt states that she would like to go to additional therapy through [facility] as an OP. Pt will need a new Rx for this. [employer] CM aware. Current 6-click score is 14. PT and OT are ordered and evaluations are pending. CM to follow. Emilie Steven RN, CM
--- NOTE | 2024-05-14 16:08 | CASEMGMT ---
Green sheet on chart for outpt therapy.
[2024-05-14 17:33] VITALS: BP 113/64; PULSE 91; RESP 16; TEMP 36.8; O2SAT 96
[2024-05-14 19:24] LABS: Urine Sodium < 5 mmol/L (Not Establ.)
[2024-05-14 19:28] LABS: Osmolality, Urine 505 mOsm/KG
[2024-05-14 22:36] VITALS: BP 127/97; PULSE 85; RESP 18; TEMP 36.7; O2SAT 94
[2024-05-14] MEDS: Insulin Glargine-YFGN 100 UNIT/ML Pen 50 UNIT SC (22:44)
[2024-05-15 04:04] VITALS: BP 109/68; PULSE 85; RESP 18; TEMP 36.5; O2SAT 95
--- NOTE | 2024-05-15 05:20 | RAD_ITS ---
INDICATION: ? SBO EXAMINATION/TECHNIQUE: X-RAY - XR Abdomen 1 View portable. 5:20 AM COMPARISON: Prior study dated: 05/14/2024 FINDINGS: Moderately dilated small bowel appears increased compared to prior. Colon is not dilated. Sensitivity for free air limited on supine view. Surgical clips in the right upper abdomen. Lung bases are not well assessed. RAD/Abdomen Single View (Portable) IMPRESSION: Increased small bowel dilatation likely small bowel obstruction. Electronically Signed: Catalina Weems MD at 8:02 EST ,
[2024-05-15 05:21] VITALS: BP 109/68; PULSE 85; RESP 18; TEMP 36.5; O2SAT 95
[2024-05-15 06:00] VITALS: BMI 30.3
[2024-05-15] MEDS: Levothyroxine 112 MCG Tablet PO (06:21)
--- NOTE | 2024-05-15 06:36 | PCM.PN.HOSP ---
Reason for Visit Reason for Visit: Diagnoses Elevated white blood cell count, unspecified (05/13/24) Thrombocytosis, unspecified (05/13/24) Dehydration (05/13/24) Hypo-osmolality and hyponatremia (05/13/24) Acidosis (05/13/24) Acidosis, unspecified (05/13/24) Hyperkalemia (05/13/24) Noninfective gastroenteritis and colitis, unspecified (05/13/24) Acute kidney failure, unspecified (05/13/24) Nausea with vomiting, unspecified (05/13/24) Diarrhea, unspecified (05/13/24) Adverse effect of unspecified drugs, medicaments and biological substances, initial encounter (05/13/24) Subjective Subjective Patient overnight with worsening pain to the abdomen, generalized although does have some more focal spots to the right lower quadrant as well as increased distention, lack of flatus, decreased bowel sounds and no bowel movements. They prior surgery had evaluated her and had discussed potential for NG tube given persistent nausea but she declined at that time. Given her current status and worsened appearance on AM KUB talked about NG tube placement at length and eventually patient amenable to at least trying. Currently she is rating her discomfort as 5-7 out of 10 in severity. She does still have some mild intermittent nausea but no emesis. Discussed case and update with surgery who is amenable. Patient denies fevers, chills, chest pain or dyspnea. Objective Data Objective Data Vital Signs: Vital Signs Temp Pulse Resp BP Pulse Ox O2 Del Method 97.7 F L 85 18 109/68 95 Room Air 05/15/24 05:21 05/15/24 05:21 05/15/24 05:21 05/15/24 05:21 05/15/24 05:21 05/15/24 05:21 Oxygen Delivery Method Room Air Weight: 150 lb 2.157 oz Body Mass Index (BMI) 30.3 Intake & Output: Intake and Output for Last 24 Hours 05/13/24 05/14/24 05/15/24 23:59 23:59 23:59 Intake Total 1170 / 1170 274 / 274 Output Total 250 / 250 Balance 1170 / 1170 274 / 274 -250 / -250 Lab / Micro Data 05/15/24 05:17 05/15/24 05:17 Labs: Laboratory Results - last 24 hr 05/14/24 05:31: Differential Comment SCANNED, Sodium 129 L, Potassium 4.2, Chloride 98, Carbon Dioxide 22.0, Anion Gap 9, BUN 49 H, Creatinine 2.05 H, Estim Creat Clear Calc 23.08, Est GFR (MDRD) Af Amer 31 L, Est GFR (MDRD) Non-Af 26 L, BUN/Creatinine Ratio 23.9 H, Glucose 210 H, Hemoglobin A1c 8.8 H, Serum Osmolality 301, Calcium 7.5 L, Phosphorus 3.2, Magnesium 1.3 L, Total Bilirubin 0.80, AST 15, ALT 26, Alkaline Phosphatase 122 H, Total Protein 7.5, Albumin 3.2, Globulin 4.3 H, Albumin/Globulin Ratio 0.7 L, TSH 0.346 L 05/14/24 11:00: Sodium 132 L, Potassium 4.1, Chloride 100, Carbon Dioxide 24.0, Anion Gap 9, BUN 51 H, Creatinine 1.92 H, Estim Creat Clear Calc 24.64, Est GFR (MDRD) Af Amer 33 L, Est GFR (MDRD) Non-Af 28 L, BUN/Creatinine Ratio 26.6 H, Glucose 190 H, Calcium 7.1 L 05/14/24 11:10: Ionized Calcium 1.00 L 05/14/24 19:03: Urine Osmolality 505, Ur Random Sodium < 5 Radiography Diagnostic Testing: Radiology Impression KUB X-Ray 05/14/24 06:05 IMPRESSION: Mildly dilated small bowel loops. Findings may indicate ileus or partial obstruction. Electronically Signed: Nabeel Paerce MD at 7:49 EST , Physical Exam Narrative Physical Examination: General: Awake, alert, oriented x 3 and cooperative, laying in the PCU bed, more fatigued and uncomfortable appearing, agreed that she was having more abdominal distention and general discomfort. Skin: Normal color, normal turgor, no icterus, no cyanosis except occasional stage ecchymoses, abrasion likely from lab draws. HEENT: AT/NC, EOMI, PERRLA, mildly dry MM. Lungs: Mild diminished, greater bases, proper effort, no rales, ronchi or wheezing. Heart: Regular rate and rhythm; no gallop, rub audible. Abdomen: Soft, generalized discomfort with palpation although worse in the right lower quadrant, more distended than day prior, absent bowel sounds. Extremities: No cyanosis, no clubbing, no marked peripheral edema. Neurological: Patient awake, alert, oriented as noted, cognitive function intact; pupils equally reactive to light and accommodation, cranial nerves gross normal, moving all 4 extremities, no focal deficits, strength moderately to severely globally decreased Psychiatric: Affect appears fatigued, mildly uncomfortable, no acute evidence of depressive or anxiety feelings. Assessment & Plan Assessment/Plan (1) Intractable nausea and vomiting: PLAN: Plan The patient is a 68 y/o F w/ PMHx: HTN, HLD, Hypothyroidism, Tobacco use, Obesity, Diabetes mellitus type II with chronic neuropathy, PAF, CAD s/p PCI, CKD stage III unclear subtype, Gout, Anxiety and Depression/Bipolar disorder, GERD who presents to the [facility] ED on 05/13/24 with abdominal pain, nausea, emesis, diarrhea with family members with similar symptoms. #1. Acute Abdominal pain with associated nausea, emesis, diarrhea with family members with similar symptoms with questionable adynamic ileus versus developing a partial small bowel obstruction with associated lactic acidosis, 05/15/2024 high suspicion for small bowel obstruction: ED evaluation with CT abdomen and pelvis with fluid-filled distended small bowel segments with no transition point with questionable adynamic ileus versus developing or partial small bowel obstruction, normal appearance large bowel, appendicolith in the tip the appendix however no evidence of appendicitis, evidence status post cholecystectomy without ductal dilatation, admission CBC with WBC 12.1, hemoglobin 12.3, platelets 650 with left shift, admission CMP with sodium 124, potassium 5.4 however moderately hemolyzed thus falsely elevated, chloride 94, At 18, BUN/creatinine 45/2.37, GFR 22, glucose 339, lactic acid 2.4, hepatic profile with alk phos 146, lipase 16, urinalysis with no obvious evidence of UTI. Admitted to telemetry, continued hydration, lactic acid trended down to 1.7, CBC improved with 05/10/2024 WBC 5.9 with lessening left shift, requested enteric, C. difficile, ova and parasite stool studies, NPO, 05/14/24 surgery consultation requested w/ favored ileus over SBO with recommendation for continued n.p.o. status with offered NG tube given it may improve her symptoms but she declined following discussion with surgery, defer any concept of small bowel follow-through until nausea improves, 05/14/24 AM KUB with mildly dilated small bowel loops again possible indicative of ileus or partial obstruction-->05/15/24 KUB worsened appearance with increased small bowel dilatation with concern for small bowel obstruction. Given increased abdominal distention, lack of bowel sounds, lack of flatus discussed with patient and will place NG tube to low intermittent suction with continued KB assessments in the AM and flushing. 05/15/2024 General Surgery updated on plan of care and amenable #2. Acute hyponatremia, hypochloremia, suspected hypovolemic etiology given acute presentation #1: Admission sodium 124, chloride 94, continued aggressive hydration with repeat 05/15/24 CMP w/ 132, continue to closely monitor, continue IV fluids. #3. Acute kidney injury on CKD stage III unclear subtype per GFR trend: Secondary to acute presentation as noted, poor intake. Admission BUN/Cr 45/2.37, GFR 22, prior baseline creatinine noted to be 1.1-1.5 although has vacillated. Will continue hydration, hold nephrotoxic medication, will obtain FeNa assessment, urinalysis not marked appearing, no evidence of obstructive process on CT abdomen and pelvis. 05/14/2024 BUN/creatinine 29/2.05, GFR 26->05/15/24 BUN/Cr 53/1.93, GFR 28, slowly improving, continue to trend. #4. PAF: Currently Coreg held, maintained on Eliquis. #5. CAD: S/p PCI, continued on Eliquis and Brilinta. Statin, Coreg, losartan held. #6. Chronic normocytic anemia: Admission hemoglobin 12.3, MCV 91.3 however falsely decreased given dehydrated status, baseline hemoglobin previous to this 9-10, 05/15/24 Hgb 10, continue to trend. #7. Anxiety and Depression/Bipolar disorder: Continued on Depakote regimen. #8. Diabetes mellitus type II with chronic neuropathy: Hold oral home regimen, continue home insulin regimen with one half dosing while n.p.o. or if hypoglycemic low threshold to hold, n.p.o. status, accu checks w/ ISS, continue gabapentin however given current status pending surgery evaluation may need to consider NG tube with n.p.o. status completely. #9. Hypothyroidism: Continued on levothyroxine regimen. #10. Hypertension: Continued on isosorbide. Upon initial presentation Coreg, hydrochlorothiazide and losartan held. #11. Hyperlipidemia: Holding statin. #12. Obesity: Weight loss and lifestyle changes encouraged. #13. Tobacco Abuse: Encouraged cessation, inpatient consultation per RT, NR if desired. #14. GERD: Maintained on IV PPI. #15. DVT prophylaxis: Continued on home Eliquis regimen. Charges/Coding Visit Charges Inpatient E&M: 75562 Subs Hosp L3
[2024-05-15 06:39] LABS: Absolute Lymphocyte Count 1.14 X10^3/uL (0.83-4.51); Absolute Neutrophil Count 3.4 X10^3/uL (2.0-7.7); Basophil# 0.04 X10^3/uL; Basophil% 0.7 % (0-1); Eosinophil# 0.18 X10^3/uL; Eosinophils% 3.3 % (0-5); Hematocrit 30.4 % (37-47); Lymphocyte # 1.14 X10^3/ul (0.83-4.51); Mean Corp Hgb Conc 32.9 g/dL (32-36); Mean Corpuscular Hgb 29.4 pg (27.0-32.0); Mean Corpuscular Volume 89.4 fL (81-99); Mean Platelet Vol. 9.6 fl (6.2-12.0); Monocyte# 0.64 X10^3/uL; Monocyte% 11.8 % (0-10); NRBC Flagged by Analyzer 0.4 % (0-5); Neutrophil # 3.42 X10^3/uL (2.7-7.7); Neutrophil % 62.8 % (47-70); POSITIVE MORPHOLOGY YES; Platelet Count 507 K/mm3 (150-450); RBC Distribution Width CV 16.8 % (11.6-14.6); RBC Distribution Width SD 54.7 fl (35.1-43.9); White Blood Count 5.4 K/mm3 (4.4-11.0)
[2024-05-15 07:00] LABS: Differential Indicated SCAN CRITERIA MET
[2024-05-15 07:13] LABS: Differential Comment SCANNED
[2024-05-15 07:25] LABS: ALB/GLOB Ratio 0.7 RATIO (0.9-2.4); AST(SGOT) 16 U/L (15-37); Alanine Aminotransfer ALT/SGPT 22 U/L (13-56); Albumin, Serum 2.9 g/dL (3.2-5.0); Alkaline Phosphatase 117 U/L (45-117); Anion Gap 9 (5-15); BUN 53 mg/dL (7-18); BUN/Creat Ratio 27.5 RATIO (10-20); Chloride 99 mmol/L (98-107); Creatinine, Serum 1.93 mg/dL (0.55-1.02); EST Glomerular Filtration Rate 28 mL/min (>60); Est Glom Filt Rate - Afr Amer 33 mL/min (>60); Estimated Creatinine Clearance 24.35 ml/min; Globulin 4.3 g/dL (2.2-4.2); Glucose 168 mg/dL (74-106); Magnesium 2.2 mg/dL (1.6-2.6); Phosphorus 3.1 mg/dL (2.5-4.9); Potassium 3.6 mmol/L (3.5-5.1); Protein, Total 7.2 g/dL (6.4-8.2); Sodium Level 132 mmol/L (136-145)
[2024-05-15 07:27] VITALS: O2SAT 96
--- NOTE | 2024-05-15 09:24 | RAD_ITS ---
EXAM: XR ABDOMEN, 1 VIEW CLINICAL INDICATION: s/p NGT placement -- KUB with both diaphragms for NG tube placement Verification TECHNIQUE: Frontal supine view of the abdomen/pelvis. COMPARISON: 05/15/2024 5:18 AM. FINDINGS: LOWER THORAX: No acute pathology. GASTROINTESTINAL TRACT: Unremarkable. Non-obstructive. No bowel or stomach distention. ORGANS: Surgical clips in the right upper quadrant of the abdomen from cholecystectomy. Gas in some of the bowel loops in the upper abdomen. Lower half of the abdomen is not included. No organomegaly. No abnormal calcifications. BONES/JOINTS: No acute pathology. SOFT TISSUES: No acute pathology. TUBES, LINES AND DEVICES: NG tube tip and sidehole is inside the left gastric cavity. RAD/Abdomen Single View (Portable) IMPRESSION: 1. Satisfactory placement of NG tube, tip and sidehole are inside the left gastric cavity. 2. No acute cardiopulmonary pathology. 3. Limited abdominal radiograph since the lower half of the abdomen is not included. This is more of a chest x-ray including the upper abdomen. Electronically Signed: Gianni Ty MD at 11:45 EST ,
[2024-05-15] MEDS: Oxymetazoline 0.05% 1 SPRAY SPRAY.BTL 2 SPRAY NASAL (10:47)
[2024-05-15] MEDS: Ondansetron 4 MG/2 ML Vial IV (10:49)
[2024-05-15] MEDS: Morphine 2 MG/ML Syringe IV ×2 (10:49→15:14)
[2024-05-15] MEDS: Pantoprazole Sodium 40 MG in 0.9% Normal Saline (100mL MB+) 100 ML 330 MG IV (10:50)
[2024-05-15 11:01] VITALS: BP 144/67; PULSE 88; RESP 16; TEMP 36.7; O2SAT 92
--- NOTE | 2024-05-15 14:42 | PN.SURG_ITS ---
Subjective Subjective The patient apparently had increase in pain overnight, but states that her pain is currently about its normal level. She did finally agreed to nasogastric tube. She complains of nose and throat irritation as a result. I really did not see much output in canister. She denies a recent flatus. Post NG x-ray read as nonspecific bowel gas pattern. We discussed possibly doing a small bowel follow-through. When she found out that she had to drink contrast, she states that she does not want to do that today but would consider possibly tomorrow Objective Data Objective Data Vital Signs: Vital Signs Temp Pulse Resp BP Pulse Ox O2 Del Method 98.1 F 88 16 144/67 H 92 Room Air 05/15/24 11:01 05/15/24 11:01 05/15/24 11:01 05/15/24 11:01 05/15/24 11:01 05/15/24 11:01 Oxygen Delivery Method Room Air Weight: 150 lb 2.157 oz Body Mass Index (BMI) 30.3 Intake & Output: Intake and Output for Last 24 Hours 05/13/24 05/14/24 05/15/24 23:59 23:59 23:59 Intake Total 1170 / 1170 274 / 274 110 / 110 Output Total 250 / 250 Balance 1170 / 1170 274 / 274 -140 / -140 Lab / Micro Data 05/15/24 05:17 05/15/24 05:17 Labs: Laboratory Results - last 24 hr 05/14/24 19:03: Urine Osmolality 505, Ur Random Sodium < 5, Urine Creatinine 170.00 05/15/24 05:17: WBC 5.4, RBC 3.40 L, Hgb 10.0 L, Hct 30.4 L, MCV 89.4, MCH 29.4, MCHC 32.9, RDW Std Deviation 54.7 H, RDW Coeff of Yaw 16.8 H, Plt Count 507 H, MPV 9.6, Immature Gran % (Auto) 0.400, Neut % (Auto) 62.8, Lymph % (Auto) 21.0, [place] % (Auto) 11.8 H, Eos % (Auto) 3.3, Baso % (Auto) 0.7, Absolute Neuts (auto) 3.4, Absolute Lymphs (auto) 1.14, Nucleated RBC % 0.4, Differential Comment SCANNED, Sodium 132 L, Potassium 3.6, Chloride 99, Carbon Dioxide 24.0, Anion Gap 9, BUN 53 H, Creatinine 1.93 H, Estim Creat Clear Calc 24.35, Est GFR (MDRD) Af Amer 33 L, Est GFR (MDRD) Non-Af 28 L, BUN/Creatinine Ratio 27.5 H, Glucose 168 H, Calcium 7.0 L, Phosphorus 3.1, Magnesium 2.2, Total Bilirubin 0.70, AST 16, ALT 22, Alkaline Phosphatase 117, Total Protein 7.2, Albumin 2.9 L, Globulin 4.3 H, Albumin/Globulin Ratio 0.7 L Radiography Diagnostic Testing: Radiology Impression KUB X-Ray 05/15/24 05:20 IMPRESSION: Increased small bowel dilatation likely small bowel obstruction. Electronically Signed: Catalina Weems MD at 8:02 EST , KUB X-Ray 05/15/24 09:24 IMPRESSION: 1. Satisfactory placement of NG tube, tip and sidehole are inside the left gastric cavity. 2. No acute cardiopulmonary pathology. 3. Limited abdominal radiograph since the lower half of the abdomen is not included. This is more of a chest x-ray including the upper abdomen. Electronically Signed: Gianni Ty MD at 11:45 EST , Physical Exam Narrative She is awake and alert. No acute distress. Abdomen is soft and obese. Some distention. Mild diffuse tenderness to palpation. No rebound or guarding Assessment & Plan Assessment/Plan (1) Intractable nausea and vomiting: PLAN: Plan The patient is a 68-year-old female who was admitted for nausea, abdominal distention, vomiting, diarrhea. Initial imaging seem to indicate ileus versus possible bowel obstruction. She did have multiple family members with a recent GI illness that had similar symptoms. Her x-rays this morning initially seemed somewhat worse. She finally agreed to NG tube. I was hoping to try to get it small bowel follow-through performed today however she refused to do this today once she found out that she would be drinking contrast. She states that she might consider tomorrow the small bowel follow-through. In the meantime I would recommend continued n.p.o. and NG tube decompression. No immediate surgical plans. Would like to obtain small bowel follow-through if possible. Charges/Coding Visit Charges Inpatient E&M: 95389 Subs Hosp L3
[2024-05-15] MEDS: 0.9% Saline Lock 10 ML Syringe IV (15:15)
[2024-05-15 15:24] VITALS: BP 112/69; PULSE 83; RESP 18; TEMP 36.6; O2SAT 92
[2024-05-15] MEDS: Phenol/Sodium Phenolate 180ML 5 SPRAY MUCOUS MEM ×2 (17:31→23:13)
[2024-05-15 21:20] VITALS: BP 140/70; PULSE 82; RESP 16; TEMP 36.6; O2SAT 94
[2024-05-15] MEDS: Insulin Glargine-YFGN 100 UNIT/ML Pen 50 UNIT SC (23:11)
[2024-05-16 02:50] VITALS: BP 148/84; PULSE 85; RESP 18; TEMP 36.7; O2SAT 95
[2024-05-16] MEDS: Morphine 2 MG/ML Syringe IV ×3 (02:50→23:39)
[2024-05-16 04:49] VITALS: BMI 30.1
--- NOTE | 2024-05-16 05:55 | RAD_ITS ---
INDICATION: SBO EXAMINATION/TECHNIQUE: X-RAY - XR Abdomen 1 View portable. 5:13 AM COMPARISON: Prior study dated: 05/15/2024 FINDINGS: AP supine view. Tip of the nasogastric tube in the mid stomach. Mildly dilated small bowel is decreased compared to prior. Air noted in the colon. There is no bowel obstruction. Sensitivity for free air limited on supine view. No abnormal mass or calcification is seen. Surgical clips right upper abdomen. The lung bases are clear. RAD/Abdomen Single View (Portable) IMPRESSION: Decreased small bowel dilatation compared to prior. Electronically Signed: Catalina Weems MD at 7:35 EST ,
[2024-05-16 06:28] LABS: Absolute Lymphocyte Count 0.87 X10^3/uL (0.83-4.51); Basophil# 0.05 X10^3/uL; Basophil% 0.9 % (0-1); Eosinophil# 0.12 X10^3/uL; Eosinophils% 2.1 % (0-5); Hematocrit 30.3 % (37-47); Hemoglobin 9.4 g/dL (12.0-15.0); Lymphocyte # 0.87 X10^3/ul (0.83-4.51); Mean Corpuscular Hgb 28.3 pg (27.0-32.0); Mean Corpuscular Volume 91.3 fL (81-99); Mean Platelet Vol. 9.3 fl (6.2-12.0); Monocyte% 12.1 % (0-10); NRBC Flagged by Analyzer 0 % (0-5); Neutrophil # 4.02 X10^3/uL (2.7-7.7); Neutrophil % 69.4 % (47-70); Platelet Count 475 K/mm3 (150-450); RBC Distribution Width CV 16.9 % (11.6-14.6); RBC Distribution Width SD 56.6 fl (35.1-43.9); Red Blood Count 3.32 M/mm3 (4.2-5.4); White Blood Count 5.8 K/mm3 (4.4-11.0)
[2024-05-16 06:56] LABS: ALB/GLOB Ratio 0.7 RATIO (0.9-2.4); AST(SGOT) 18 U/L (15-37); Alanine Aminotransfer ALT/SGPT 25 U/L (13-56); Albumin, Serum 2.9 g/dL (3.2-5.0); Alkaline Phosphatase 119 U/L (45-117); Anion Gap 6 (5-15); BUN 35 mg/dL (7-18); Calcium,Total 7.6 mg/dL (8.5-10.1); Chloride 104 mmol/L (98-107); Creatinine, Serum 1.13 mg/dL (0.55-1.02); EST Glomerular Filtration Rate 51 mL/min (>60); Est Glom Filt Rate - Afr Amer 62 mL/min (>60); Estimated Creatinine Clearance 41.47 ml/min; Globulin 4.3 g/dL (2.2-4.2); Glucose 134 mg/dL (74-106); Potassium 3.8 mmol/L (3.5-5.1); Protein, Total 7.2 g/dL (6.4-8.2); Sodium Level 134 mmol/L (136-145)
--- NOTE | 2024-05-16 07:37 | PCM.PN.HOSP ---
Reason for Visit Reason for Visit: Diagnoses Elevated white blood cell count, unspecified (05/13/24) Thrombocytosis, unspecified (05/13/24) Dehydration (05/13/24) Hypo-osmolality and hyponatremia (05/13/24) Acidosis (05/13/24) Acidosis, unspecified (05/13/24) Hyperkalemia (05/13/24) Noninfective gastroenteritis and colitis, unspecified (05/13/24) Acute kidney failure, unspecified (05/13/24) Nausea with vomiting, unspecified (05/13/24) Diarrhea, unspecified (05/13/24) Adverse effect of unspecified drugs, medicaments and biological substances, initial encounter (05/13/24) Subjective Subjective Patient with no acute events overnight per self and per nursing report. Patient does report onset of flatus. She has had moderate output from the NG tube but not significant although she does feel improved and denies any further abdominal pain. On examination patient still does have mild distention and tympany but no pain elicited with palpation. She notes primarily discomfort with NG tube placement and is eager for it to be removed. Discussed plan of care with patient and surgery with small bowel follow-through and potential any discontinuation if this is unremarkable. Patient denies fevers, chills, nausea, emesis, chest pain or dyspnea. Objective Data Objective Data Vital Signs: Vital Signs Temp Pulse Resp BP Pulse Ox O2 Del Method 98.1 F 85 18 148/84 H 95 Room Air 05/16/24 02:50 05/16/24 02:50 05/16/24 02:50 05/16/24 02:50 05/16/24 02:50 05/16/24 03:00 Oxygen Delivery Method Room Air Weight: 149 lb 4.047 oz Body Mass Index (BMI) 30.1 Intake & Output: Intake and Output for Last 24 Hours 05/14/24 05/15/24 05/16/24 23:59 23:59 23:59 Intake Total 274 / 274 360 / 360 0 / 0 Output Total 800 / 950 200 / 200 Balance 274 / 274 -440 / -590 -200 / -200 Lab / Micro Data 05/16/24 05:17 05/16/24 05:17 Labs: Laboratory Results - last 24 hr 05/14/24 19:03: Urine Creatinine 170.00 05/16/24 05:17: WBC 5.8, RBC 3.32 L, Hgb 9.4 L, Hct 30.3 L, MCV 91.3, MCH 28.3, MCHC 31.0 L D, RDW Std Deviation 56.6 H, RDW Coeff of Yaw 16.9 H, Plt Count 475 H, MPV 9.3, Immature Gran % (Auto) 0.500, Neut % (Auto) 69.4, Lymph % (Auto) 15.0 L, [place] % (Auto) 12.1 H, Eos % (Auto) 2.1, Baso % (Auto) 0.9, Absolute Neuts (auto) 4.0, Absolute Lymphs (auto) 0.87, Nucleated RBC % 0, Sodium 134 L, Potassium 3.8, Chloride 104, Carbon Dioxide 24.0, Anion Gap 6, BUN 35 H, Creatinine 1.13 H, Estim Creat Clear Calc 41.47, Est GFR (MDRD) Af Amer 62, Est GFR (MDRD) Non-Af 51 L, BUN/Creatinine Ratio 31.0 H, Glucose 134 H, Calcium 7.6 L, Total Bilirubin 0.50, AST 18, ALT 25, Alkaline Phosphatase 119 H, Total Protein 7.2, Albumin 2.9 L, Globulin 4.3 H, Albumin/Globulin Ratio 0.7 L Radiography Diagnostic Testing: Radiology Impression KUB X-Ray 05/15/24 05:20 IMPRESSION: Increased small bowel dilatation likely small bowel obstruction. Electronically Signed: Catalina Weems MD at 8:02 EST , KUB X-Ray 05/15/24 09:24 IMPRESSION: 1. Satisfactory placement of NG tube, tip and sidehole are inside the left gastric cavity. 2. No acute cardiopulmonary pathology. 3. Limited abdominal radiograph since the lower half of the abdomen is not included. This is more of a chest x-ray including the upper abdomen. Electronically Signed: Gianni Ty MD at 11:45 EST , KUB X-Ray 05/16/24 05:55 IMPRESSION: Decreased small bowel dilatation compared to prior. Electronically Signed: Catalina Weems MD at 7:35 EST , Physical Exam Narrative Physical Examination: General: Awake, alert, oriented x 3 and cooperative, seated upright in a PCU bed, notes feeling improved aside from discomfort with NG tube, abdominal pain is abated. Skin: Normal color, normal turgor, no icterus, no cyanosis except occasional stage ecchymoses, abrasion likely from lab draws. HEENT: AT/NC, EOMI, PERRLA, mildly dry MM, NG tube in place. Lungs: Mild diminished, greater bases, proper effort, no rales, ronchi or wheezing. Heart: Regular rate and rhythm; no gallop, rub audible. Abdomen: Soft, significantly improved abdomen with no tenderness to palpation, soft, still mildly distended, diminished bowel sounds, tympanitic. Extremities: No cyanosis, no clubbing, no marked peripheral edema. Neurological: Patient awake, alert, oriented as noted, cognitive function intact; pupils equally reactive to light and accommodation, cranial nerves gross normal, moving all 4 extremities, no focal deficits, strength moderately to severely globally decreased Psychiatric: Affect appears fatigued, notes discomfort with NG tube only, no acute evidence of depressive or anxiety feelings. Assessment & Plan Assessment/Plan (1) Intractable nausea and vomiting: PLAN: Plan The patient is a 68 y/o F w/ PMHx: HTN, HLD, Hypothyroidism, Tobacco use, Obesity, Diabetes mellitus type II with chronic neuropathy, PAF, CAD s/p PCI, CKD stage III unclear subtype, Gout, Anxiety and Depression/Bipolar disorder, GERD who presents to the [facility] ED on 05/13/24 with abdominal pain, nausea, emesis, diarrhea with family members with similar symptoms. #1. Acute Abdominal pain with associated nausea, emesis, diarrhea with family members with similar symptoms with questionable adynamic ileus versus developing a partial small bowel obstruction with associated lactic acidosis, 05/15/2024 high suspicion for small bowel obstruction: ED evaluation with CT abdomen and pelvis with fluid-filled distended small bowel segments with no transition point with questionable adynamic ileus versus developing or partial small bowel obstruction, normal appearance large bowel, appendicolith in the tip the appendix however no evidence of appendicitis, evidence status post cholecystectomy without ductal dilatation, admission CBC with WBC 12.1, hemoglobin 12.3, platelets 650 with left shift, admission CMP with sodium 124, potassium 5.4 however moderately hemolyzed thus falsely elevated, chloride 94, At 18, BUN/creatinine 45/2.37, GFR 22, glucose 339, lactic acid 2.4, hepatic profile with alk phos 146, lipase 16, urinalysis with no obvious evidence of UTI. Admitted to telemetry, continued hydration, lactic acid trended down to 1.7, CBC improved with 05/10/2024 WBC 5.9 with lessening left shift, requested enteric, C. difficile, ova and parasite stool studies, NPO, 05/14/24 surgery consultation requested w/ favored ileus over SBO with recommendation for continued n.p.o. status with offered NG tube given it may improve her symptoms but she declined following discussion with surgery, defer any concept of small bowel follow-through until nausea improves, 05/14/24 AM KUB with mildly dilated small bowel loops again possible indicative of ileus or partial obstruction-->05/15/24 KUB worsened appearance with increased small bowel dilatation with concern for small bowel obstruction. 05/15/24 NG tube placed to low intermittent suction. 05/16/24 KUB with decreased small bowel dilatation compared to previous. 05/16/2024 given KUB appearance at onset of flatus per discussion with general surgery we will plan small bowel follow-through and if this is unremarkable may be able to de-escalate and discontinue NG tube with initiation of clears. #2. Acute hyponatremia, hypochloremia, suspected hypovolemic etiology given acute presentation #1: Admission sodium 124, chloride 94, continued aggressive hydration with repeat 05/16/2024 CMP with sodium 134, continue to closely monitor, continue IV fluids. #3. Acute kidney injury on CKD stage III unclear subtype per GFR trend: Secondary to acute presentation as noted, poor intake. Admission BUN/Cr 45/2.37, GFR 22, prior baseline creatinine noted to be 1.1-1.5 although has vacillated. Will continue hydration, hold nephrotoxic medication, will obtain FeNa assessment, urinalysis not marked appearing, no evidence of obstructive process on CT abdomen and pelvis. 05/14/2024 BUN/creatinine 29/2.05, GFR 26-> 05/16/2024 BUN/creatinine 35/1.13, GFR 51, continues to improve, continue trending. #4. PAF: Currently Coreg held, maintained on Eliquis. #5. CAD: S/p PCI, continued on Eliquis and Brilinta. Statin, Coreg, losartan held. #6. Chronic normocytic anemia: Admission hemoglobin 12.3, MCV 91.3 however falsely decreased given dehydrated status, baseline hemoglobin previous to this 9-, 05/16/2024 hemoglobin 9.4, continue to trend. #7. Anxiety and Depression/Bipolar disorder: Continued on Depakote regimen. #8. Diabetes mellitus type II with chronic neuropathy: Hold oral home regimen, continue home insulin regimen with one half dosing while n.p.o. or if hypoglycemic low threshold to hold, n.p.o. status, accu checks w/ ISS, continue gabapentin however given current status pending surgery evaluation may need to consider NG tube with NPO status completely. #9. Hypothyroidism: Continued on levothyroxine regimen. #10. Hypertension: Continued on isosorbide. Upon initial presentation Coreg, hydrochlorothiazide and losartan held. #11. Hyperlipidemia: Holding statin. #12. Obesity: Weight loss and lifestyle changes encouraged. #13. Tobacco Abuse: Encouraged cessation, inpatient consultation per RT, NR if desired. #14. GERD: Maintained on IV PPI. #15. DVT prophylaxis: Continued on home Eliquis regimen. Charges/Coding Visit Charges Inpatient E&M: 27959 Subs Hosp L2
--- NOTE | 2024-05-16 08:20 | RAD_ITS ---
CLINICAL HISTORY: Female, 68 years old. Abdominal pain PROCEDURE: Small bowel follow-through TECHNIQUE: Barium was administered through the patient''s nasogastric tube and multiple images of the abdomen were obtained over time. FINDINGS: The immediate image demonstrates a nasogastric tube with the tip in the body of the stomach. The patient is status post cholecystectomy. Barium is seen throughout the stomach with passage through the duodenum into the proximal jejunum. Examination cervical spine images demonstrates progression of barium throughout the small bowel without evidence of bowel dilatation just distal obstruction. Examination of 5 hour image demonstrates barium within the ascending colon. Examination of the 12 hour image demonstrates barium throughout the colon including the rectum. RAD/Small Bowel Series Only IMPRESSION: No bowel obstruction. Electronically Signed: David Adan MD at 10:55 EST ,
[2024-05-16 08:57] VITALS: BP 133/66; PULSE 85; RESP 16; TEMP 36.3; O2SAT 94
[2024-05-16] MEDS: Ondansetron 4 MG/2 ML Vial IV ×3 (09:01→23:39)
[2024-05-16] MEDS: Pantoprazole Sodium 40 MG in 0.9% Normal Saline (100mL MB+) 100 ML 330 MG IV (09:10)
[2024-05-16] MEDS: 0.9% Saline Lock 10 ML Syringe IV (09:10)
--- NOTE | 2024-05-16 10:54 | PCM.PN.SRG ---
Subjective Subjective Patient states she is passing some flatus today. She still complains of discomfort secondary to NG tube. No worsening of her abdominal pain Objective Data Objective Data Vital Signs: Vital Signs Temp Pulse Resp BP Pulse Ox O2 Del Method 97.4 F L 85 16 133/66 H 94 Room Air 05/16/24 08:57 05/16/24 08:57 05/16/24 08:57 05/16/24 08:57 05/16/24 08:57 05/16/24 08:57 Oxygen Delivery Method Room Air Weight: 149 lb 4.047 oz Body Mass Index (BMI) 30.1 Intake & Output: Intake and Output for Last 24 Hours 05/14/24 05/15/24 05/16/24 23:59 23:59 23:59 Intake Total 274 / 274 360 / 360 0 / 0 Output Total 800 / 950 700 / 700 Balance 274 / 274 -440 / -590 -700 / -700 Lab / Micro Data 05/16/24 05:17 05/16/24 05:17 Labs: Laboratory Results - last 24 hr 05/14/24 19:03: Urine Creatinine 170.00 05/16/24 05:17: WBC 5.8, RBC 3.32 L, Hgb 9.4 L, Hct 30.3 L, MCV 91.3, MCH 28.3, MCHC 31.0 L D, RDW Std Deviation 56.6 H, RDW Coeff of Yaw 16.9 H, Plt Count 475 H, MPV 9.3, Immature Gran % (Auto) 0.500, Neut % (Auto) 69.4, Lymph % (Auto) 15.0 L, [place] % (Auto) 12.1 H, Eos % (Auto) 2.1, Baso % (Auto) 0.9, Absolute Neuts (auto) 4.0, Absolute Lymphs (auto) 0.87, Nucleated RBC % 0, Sodium 134 L, Potassium 3.8, Chloride 104, Carbon Dioxide 24.0, Anion Gap 6, BUN 35 H, Creatinine 1.13 H, Estim Creat Clear Calc 41.47, Est GFR (MDRD) Af Amer 62, Est GFR (MDRD) Non-Af 51 L, BUN/Creatinine Ratio 31.0 H, Glucose 134 H, Calcium 7.6 L, Total Bilirubin 0.50, AST 18, ALT 25, Alkaline Phosphatase 119 H, Total Protein 7.2, Albumin 2.9 L, Globulin 4.3 H, Albumin/Globulin Ratio 0.7 L Radiography Diagnostic Testing: Radiology Impression KUB X-Ray 05/15/24 09:24 IMPRESSION: 1. Satisfactory placement of NG tube, tip and sidehole are inside the left gastric cavity. 2. No acute cardiopulmonary pathology. 3. Limited abdominal radiograph since the lower half of the abdomen is not included. This is more of a chest x-ray including the upper abdomen. Electronically Signed: Gianni Ty MD at 11:45 EST , KUB X-Ray 05/16/24 05:55 IMPRESSION: Decreased small bowel dilatation compared to prior. Electronically Signed: Catalina Weems MD at 7:35 EST , Physical Exam Narrative She is alert and oriented x 3. She is in no acute distress. Abdomen soft and mildly distended. Mild tenderness palpation. No rebound or guarding. Assessment & Plan Assessment/Plan (1) Gastroenteritis: PLAN: The patient is a 68-year-old female with resolving ileus versus PSBO. NG tube was placed yesterday with a fairly significant amount of output removed. It sounds as though she is passing flatus and having some returning bowel function. I have ordered small bowel follow-through study today which is in progress. If small bowel follow-through study shows no obstruction, I would probably recommend removing her NG and giving her a trial of clear liquid diet. I will be off service until May 27. Dr. Jackson will cover in my absence. Charges/Coding Visit Charges Inpatient E&M: 68299 Subs Hosp L3
[2024-05-16 15:21] VITALS: BP 142/71; PULSE 82; RESP 16; TEMP 36.2; O2SAT 95
[2024-05-16] MEDS: Phenol/Sodium Phenolate 180ML 5 SPRAY MUCOUS MEM (17:22)
[2024-05-16 21:21] VITALS: BP 150/73; PULSE 93; RESP 18; TEMP 36.4; O2SAT 94
[2024-05-16] MEDS: Gabapentin 600 MG Tablet PO (23:19)
[2024-05-16] MEDS: Insulin Glargine-YFGN 100 UNIT/ML Pen 50 UNIT SC (23:19)
[2024-05-17] VITALS (8 sets, daily range): BP systolic 139–151; BP diastolic 69–94; PULSE 63–91; RESP 16–18; TEMP 36.3–36.9; O2SAT 93–97; BMI 29.6
--- NOTE | 2024-05-17 06:48 | PN.HOSP_ITS ---
Reason for Visit Reason for Visit: Diagnoses Elevated white blood cell count, unspecified (05/13/24) Thrombocytosis, unspecified (05/13/24) Dehydration (05/13/24) Hypo-osmolality and hyponatremia (05/13/24) Acidosis (05/13/24) Acidosis, unspecified (05/13/24) Hyperkalemia (05/13/24) Noninfective gastroenteritis and colitis, unspecified (05/13/24) Acute kidney failure, unspecified (05/13/24) Nausea with vomiting, unspecified (05/13/24) Diarrhea, unspecified (05/13/24) Adverse effect of unspecified drugs, medicaments and biological substances, initial encounter (05/13/24) Subjective Subjective Patient overnight with no acute events with no nausea and some continued output from NG tube. Still distended but no abdominal pain. Patient is passing flatus and did have some liquid bowel movements. Ongoing small bowel 24-hour follow- through w with study still not completed. Patient eager to have the NG tube out but understands awaiting these final results but currently some suspected ongoing obstructive process thus likely NG tube will remain to low intermittent suction but still again awaiting final results. Patient denies fevers, chills, nausea, emesis, abdominal pain, chest pain or dyspnea. Objective Data Objective Data Vital Signs: Vital Signs Temp Pulse Resp BP Pulse Ox O2 Del Method 98.5 F 85 16 148/70 H 94 Room Air 05/17/24 04:42 05/17/24 04:42 05/17/24 04:42 05/17/24 04:42 05/17/24 04:42 05/17/24 04:42 Oxygen Delivery Method Room Air Weight: 146 lb 13.246 oz Body Mass Index (BMI) 29.6 Intake & Output: Intake and Output for Last 24 Hours 05/15/24 05/16/24 05/17/24 23:59 23:59 23:59 Intake Total 360 / 360 110 / 110 Output Total 800 / 950 1000 / 1000 200 / 200 Balance -440 / -590 -890 / -890 -200 / -200 Lab / Micro Data 05/17/24 09:55 05/17/24 08:50 Labs: Laboratory Results - last 24 hr 05/16/24 05:17: Sodium 134 L, Potassium 3.8, Chloride 104, Carbon Dioxide 24.0, Anion Gap 6, BUN 35 H, Creatinine 1.13 H, Estim Creat Clear Calc 41.47, Est GFR (MDRD) Af Amer 62, Est GFR (MDRD) Non-Af 51 L, BUN/Creatinine Ratio 31.0 H, G lucose 134 H, Calcium 7.6 L, Total Bilirubin 0.50, AST 18, ALT 25, Alkaline Phosphatase 119 H, Total Protein 7.2, Albumin 2.9 L, Globulin 4.3 H, A lbumin/Globulin Ratio 0.7 L Radiography Diagnostic Testing: Radiology Impression KUB X-Ray 05/16/24 05:55 IMPRESSION: Decreased small bowel dilatation compared to prior. Electronically Signed: Catalina Weems MD at 7:35 EST , Physical Exam Narrative Physical Examination: General: Awake, alert, oriented x 3 and cooperative, seated upright in the PCU bed, fatigued, only complaint is having charley horses, denies any nausea or emesis, abdomen still distended but she notes has been having flatus and some liquid stools. Skin: Normal color, normal turgor, no icterus, no cyanosis except occasional stage ecchymoses, abrasion likely from lab draws. HEENT: AT/NC, EOMI, PERRLA, mildly dry MM, NG tube in place. Lungs: Mild diminished, greater bases, proper effort, no rales, ronchi or wheezing. Heart: Regular rate and rhythm; no gallop, rub audible. Abdomen: Soft, nontender to palpation, still soft, still at least mildly to moderately distended, improved bowel sounds, still tympanitic. Extremities: No cyanosis, no clubbing, no marked peripheral edema. Neurological: Patient awake, alert, oriented as noted, cognitive function intact; pupils equally reactive to light and accommodation, cranial nerves gross normal, moving all 4 extremities, no focal deficits, strength moderately to severely globally decreased Psychiatric: Affect appears fatigued, uncomfortable temporarily as witnessed charley horse during evaluation with assisted de-escalation successfully, no acute evidence of depressive or anxiety feelings. Assessment & Plan Assessment/Plan (1) Intractable nausea and vomiting: PLAN: Plan The patient is a 68 y/o F w/ PMHx: HTN, HLD, Hypothyroidism, Tobacco use, Obesity, Diabetes mellitus type II with chronic neuropathy, PAF, CAD s/p PCI, CKD stage III unclear subtype, Gout, Anxiety and Depression/Bipolar disorder, GERD who presents to the [facility] ED on 05/13/24 with abdominal pain, nausea, emesis, diarrhea with family members with similar symptoms. #1. Acute Abdominal pain with associated nausea, emesis, diarrhea with family members with similar symptoms with questionable adynamic ileus versus developing a partial small bowel obstruction with associated lactic acidosis, 05/15/2024 high suspicion for small bowel obstruction: ED evaluation with CT abdomen and pelvis with fluid-filled distended small bowel segments with no transition point with questionable adynamic ileus versus developing or partial small bowel obstruction, normal appearance large bowel, appendicolith in the tip the appendix however no evidence of appendicitis, evidence status post cholecystectomy without ductal dilatation, admission CBC with WBC 12.1, hemoglobin 12.3, platelets 650 with left shift, admission CMP with sodium 124, potassium 5.4 however moderately hemolyzed thus falsely elevated, chloride 94, At 18, BUN/creatinine 45/2.37, GFR 22, glucose 339, lactic acid 2.4, hepatic profile with alk phos 146, lipase 16, urinalysis with no obvious evidence of UTI. Admitted to telemetry, continued hydration, lactic acid trended down to 1.7. 05/14/24 surgery consultation requested w/ favored ileus over SBO with recommendation for continued n.p.o. status with offered NG tube given it may improve her symptoms but she declined following discussion with surgery, defer any concept of small bowel follow-through until nausea improves, 05/14/24 AM KUB with mildly dilated small bowel loops again possible indicative of ileus or partial obstruction-->05/15/24 KUB worsened appearance with increased small bowel dilatation with concern for small bowel obstruction. 05/15/24 NG tube placed to low intermittent suction. 05/16/24 KUB with decreased small bowel dilatation compared to previous. 05/16/2024 given KUB appearance at onset of flatus surgery initiated SBFT 24 hours protocol. 05/17/24 will await SBFT results, if negative will d/c NGT and allow clears per prior discussion with surgery otherwise we will continue to low intermittent suction. PT/OT/case management following with encouragement of up and active to assist also with charley horses but prevent worsening we can status. Stool studies requested. #2. Acute hyponatremia, hypochloremia, suspected hypovolemic etiology given acute presentation #1: Admission sodium 124, chloride 94, continued aggressive hydration with repeat 05/17/2024 CMP with sodium 136, continue to closely monitor, continue IV fluids. #3. Acute kidney injury on CKD stage III unclear subtype per GFR trend: Secondary to acute presentation as noted, poor intake. Admission BUN/Cr 45/2.37, GFR 22, prior baseline creatinine noted to be 1.1-1.5 although has vacillated. Will continue hydration, hold nephrotoxic medication, will obtain FeNa assessment, urinalysis not marked appearing, no evidence of obstructive process on CT abdomen and pelvis. 05/14/2024 BUN/creatinine 29/2.05, GFR 26->05/17/2024 BUN/creatinine 24/0.97, GFR 60, continue trending. #4. PAF: Holding oral coreg and eliquis, transitioned temporarily to lovenox. #5. CAD: S/p PCI, holding oral Eliquis, Brilint, statin, coreg, losartan. [place] ASA, lovenox until oral intake allowed. #6. Chronic normocytic anemia: Admission hemoglobin 12.3, MCV 91.3 however falsely decreased given dehydrated status, baseline hemoglobin previous to this 9-10, 05/17/2024 hemoglobin 9.6, continue to trend. #7. Anxiety and Depression/Bipolar disorder: Continued on Depakote regimen. #8. Diabetes mellitus type II with chronic neuropathy: Hold oral home regimen, continue home insulin regimen with one half dosing while NPO or if hypoglycemic low threshold to hold, NPO status, accu checks w/ ISS, holding oral gabapentin regimen. #9. Hypothyroidism: Holding oral levothyroxine regimen. #10. Hypertension: Holding oral HTN regimen, PRN hydralazine. #11. Hyperlipidemia: Holding oral statin. #12. Obesity: Weight loss and lifestyle changes encouraged. #13. Tobacco Abuse: Encouraged cessation, inpatient consultation per RT, NR if desired. #14. GERD: Maintained on IV PPI. #15. DVT prophylaxis: Holding oral eliquis, transitioned to Lovenox until oral intake allowed. Charges/Coding Visit Charges Inpatient E&M: 60883 Subs Hosp L2
--- NOTE | 2024-05-17 07:59 | PN.SURG_ITS ---
Subjective Subjective Patient seen and examined during AM rounds. She is found resting in bed but complaining of pain in her foot. She declares this is her biggest need and that she has next no abdominal pain. She confirms that she has not been on suction with her NG tube for about 24 hours and previously did have some nausea but is currently without nausea. She confirms that she is having regular loose stools and flatus. Lastly, she complains of thirst. Objective Data Objective Data Vital Signs: Vital Signs Temp Pulse Resp BP Pulse Ox O2 Del Method 98.5 F 85 16 148/70 H 94 Room Air 05/17/24 04:42 05/17/24 04:42 05/17/24 04:42 05/17/24 04:42 05/17/24 04:42 05/17/24 04:42 Oxygen Delivery Method Room Air Weight: 146 lb 13.246 oz Body Mass Index (BMI) 29.6 Intake & Output: Intake and Output for Last 24 Hours 05/15/24 05/16/24 05/17/24 23:59 23:59 23:59 Intake Total 360 / 360 110 / 110 Output Total 800 / 950 1000 / 1000 200 / 200 Balance -440 / -590 -890 / -890 -200 / -200 Lab / Micro Data 05/17/24 09:55 05/17/24 08:50 Physical Exam Resp normal respiratory effort GI GI Narrative: Patient appears mildly distended (although she assures me this is her normal habitus), soft, nontender to palpation x 4 quadrants. Well-healed scar is present midline Assessment & Plan Assessment/Plan (1) Intractable nausea and vomiting: PLAN: Patient is a 68-year-old female that was admitted with intractable nausea and vomiting and underwent NG tube placement and a small bowel follow-through was begun yesterday with radiology. The study was completed today and did show transit of the contrast medium through the bowel without evidence for mechanical obstruction. However, I noted the presence of centrally dilated loops of small bowel on the completion film and requested that nursing return the patient's NG tube to suction as I was concerned for an ongoing adynamic ileus. While Ms. Dela Cruz reports ongoing bowel activity with loose bowel movements she has had 500- 600 mL of bilious aspirate out of her NG tube over the day. Then inexactness of the system it comes from her concurrent ingestion of ice chips. We discussed minimizing this intake so that we can get a true arrest and then of her volume out. If this volume significantly tapers and her abdominal exam is improved tomorrow (along with an a.m. KUB) and I would plan to discontinue her NG tube and resume a diet. Additionally, a micro specimen for enteric pathogen processing remains pending. We will follow-up this result. For now continue current supportive care with n.p.o. status, NG tube to low intermittent wall suction, limiting ice chip intake to 1 cup per shift, and will obtain a new KUB in the morning. Jb Jackson MD General Surgery Endocrine Surgery Pager: [facility] [address] [place] [address], [facility], [address] [place] [address] Office: [phone] (2) Paralytic ileus of small intestine: Charges/Coding Visit Charges Inpatient E&M: 46621 Subs Hosp L2
[2024-05-17] MEDS: Pantoprazole Sodium 40 MG in 0.9% Normal Saline (100mL MB+) 100 ML 330 MG IV (09:18)
[2024-05-17] MEDS: Morphine 2 MG/ML Syringe IV ×2 (09:19→19:50)
[2024-05-17] MEDS: 0.9% Saline Lock 10 ML Syringe IV ×2 (09:25→19:51)
[2024-05-17 10:11] LABS: Absolute Neutrophil Count 7.3 X10^3/uL (2.0-7.7); Basophil# 0.04 X10^3/uL; Basophil% 0.4 % (0-1); Eosinophil# 0.09 X10^3/uL; Eosinophils% 0.9 % (0-5); Hematocrit 29.9 % (37-47); Hemoglobin 9.6 g/dL (12.0-15.0); Lymphocyte % 10.5 % (19-41); Mean Corp Hgb Conc 32.1 g/dL (32-36); Mean Corpuscular Hgb 29.3 pg (27.0-32.0); Mean Corpuscular Volume 91.2 fL (81-99); Mean Platelet Vol. 9.1 fl (6.2-12.0); Monocyte# 1.02 X10^3/uL; Monocyte% 10.7 % (0-10); NRBC Flagged by Analyzer 0.2 % (0-5); Neutrophil # 7.27 X10^3/uL (2.7-7.7); Neutrophil % 76.2 % (47-70); Platelet Count 526 K/mm3 (150-450); RBC Distribution Width CV 16.9 % (11.6-14.6); RBC Distribution Width SD 56.6 fl (35.1-43.9); Red Blood Count 3.28 M/mm3 (4.2-5.4); White Blood Count 9.5 K/mm3 (4.4-11.0)
[2024-05-17 10:17] LABS: ALB/GLOB Ratio 0.6 RATIO (0.9-2.4); AST(SGOT) 20 U/L (15-37); Alanine Aminotransfer ALT/SGPT 27 U/L (13-56); Alkaline Phosphatase 144 U/L (45-117); Anion Gap 8 (5-15); BUN 24 mg/dL (7-18); BUN/Creat Ratio 24.6 RATIO (10-20); Calcium,Total 8.9 mg/dL (8.5-10.1); Chloride 102 mmol/L (98-107); Creatinine, Serum 0.97 mg/dL (0.55-1.02); EST Glomerular Filtration Rate 60 mL/min (>60); Est Glom Filt Rate - Afr Amer 73 mL/min (>60); Estimated Creatinine Clearance 47.92 ml/min; Globulin 5.2 g/dL (2.2-4.2); Glucose 135 mg/dL (74-106); Potassium 4.1 mmol/L (3.5-5.1); Protein, Total 8.2 g/dL (6.4-8.2); Sodium Level 136 mmol/L (136-145)
--- NOTE | 2024-05-17 10:50 | CASEMGMT ---
WU MACKAY NOTE: Noted 6 cl: 14. Per therapy eval 05/14, pt ambulated 150 ft w/walker and no additional therapy recommended. WU MACKAY to room. Pt resting in bed. Introduced self and role. Pt states she has been having severe muscle spasms and pain to her right foot, causing difficulty w/walking. She states she has not been up ambulating or OOB other than to use BSC. Dr Wiggins then entered room to see pt and she was updated on all of this. PT/OT orders entered and therapy made aware. Discussed discharge planning. Pt states she wishes to discharge home and is hopeful to still go to [facility] for OP therapy, but this would depend on pain/difficulty ambulating improving. She states may want HHC, if still having difficulty ambulating by the time of discharge. She does not want to go to a SNF. Leidy MEDINA RN, CM
--- NOTE | 2024-05-17 11:38 | CASEMGMT ---
Discharge Planning A list of?HH providers including quality and resource use data and consistent with the patient's preferred geographic region, medical needs, and insurance network was created in [employer] Guide.? This list was provided to the RN THOMPSON. Yamel Kerns, Discharge Planning Asst.
--- NOTE | 2024-05-17 21:38 | NURSING ---
Patient Marilyn showed her blood sugar is 114. She refused any insulin.
[2024-05-18] VITALS (10 sets, daily range): BP systolic 86–144; BP diastolic 58–85; PULSE 71–129; RESP 14–18; TEMP 36.6–37.2; O2SAT 92–98; BMI 28.5
[2024-05-18] MEDS: 0.9% Saline Lock 10 ML Syringe IV ×4 (03:58→17:09)
[2024-05-18] MEDS: Morphine 2 MG/ML Syringe IV ×2 (03:58→17:09)
--- NOTE | 2024-05-18 06:28 | PCM.PN.HOSP ---
Reason for Visit Reason for Visit: Diagnoses Elevated white blood cell count, unspecified (05/13/24) Thrombocytosis, unspecified (05/13/24) Dehydration (05/13/24) Hypo-osmolality and hyponatremia (05/13/24) Acidosis (05/13/24) Acidosis, unspecified (05/13/24) Hyperkalemia (05/13/24) Noninfective gastroenteritis and colitis, unspecified (05/13/24) Paralytic ileus (05/13/24) Acute kidney failure, unspecified (05/13/24) Nausea with vomiting, unspecified (05/13/24) Diarrhea, unspecified (05/13/24) Adverse effect of unspecified drugs, medicaments and biological substances, initial encounter (05/13/24) Subjective Subjective Patient with no acute events overnight per self and per nursing report. Discussed that her small bowel follow-through the day prior was read is negative and given that she has had ongoing flatus and bowel movements likely plan for discontinuation of NG tube today. Her KUB was discussed and noted to be improved in appearance also. Patient did have increased output from her NG but discussed frankly and she was taking a significant amount of ice chips and which is likely the source. Patient denies fevers, chills, nausea, emesis, abdominal pain, chest pain or dyspnea. Objective Data Objective Data Vital Signs: Vital Signs Temp Pulse Resp BP Pulse Ox O2 Del Method 97.9 F 71 14 144/58 H 93 Room Air 05/18/24 03:52 05/18/24 03:52 05/18/24 03:52 05/18/24 03:52 05/18/24 03:52 05/18/24 03:52 Oxygen Delivery Method Room Air Weight: 141 lb 5.061 oz Body Mass Index (BMI) 28.5 Intake & Output: Intake and Output for Last 24 Hours 05/16/24 05/17/24 05/18/24 23:59 23:59 23:59 Intake Total 110 / 110 110 / 110 Output Total 1000 / 1000 1100 / 1350 400 / 400 Balance -890 / -890 -990 / -1240 -400 / -400 Medical Nutrition Assessment Dietitian: Malnutrition Criteria Met Start: 05/17/24 15:05 Freq: Status: Active Protocol: Document 05/17/24 15:06 SB (Rec: 05/17/24 15:06 SB [id number]) Nutrition Malnutrition Evidence of Malnutrition Exists Yes Malnutrition (severe): Acute Illness/Injury Evidenced By Suboptimal Energy Intake ( Severe),Weight Loss (Severe) Clinical Problem Acute Disease or Injury Related Malnutrition Etiology severe related to inadequate oral intake and altered GI function Signs/Symptoms as evidenced by PO meeting <75 % of estimated nutrition needs x 4-5 months [employer], 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 5 months; extended NPO x 4 days. Status Active Problem Altered Nutrient-Related Laboratory Values Etiology related to endocrine dysfunction/diabetes Signs/Symptoms as evidneced by A1C 8.8% Status Active Problem Recommendation Dietitian Recommendations/Changes If able to take PO recommend advanced diet as tolerated to 1600 calorie controlled/ consistent carbohydrate diet. If PO reminded NPO, recommend nutrition support. Consult RD for initiated and management of TPN as needed. Will add 1 scoop of beneprotein TID with meals. Will monitor weight, as available. Reviewed and approved by Karen Tate MS, RDN, LD. Lab / Micro Data 05/18/24 05:40 05/18/24 05:40 Labs: Laboratory Results - last 24 hr 05/17/24 08:50: WBC Cancelled, Corrected WBC Cancelled, RBC Cancelled, Hgb Cancelled, Hct Cancelled, MCV Cancelled, MCH Cancelled, MCHC Cancelled, RDW Std Deviation Cancelled, RDW Coeff of Yaw Cancelled, Plt Count Cancelled, MPV Cancelled, Immature Gran % (Auto) Cancelled, Neut % (Auto) Cancelled, Lymph % (Auto) Cancelled, Billings % (Auto) Cancelled, Eos % (Auto) Cancelled, Baso % (Auto) Cancelled, Absolute Neuts (auto) Cancelled, Absolute Lymphs (auto) Cancelled, Total Counted Cancelled, Neutrophils % (Manual) Cancelled, Band Neutrophils % Cancelled, Lymphocytes % (Manual) Cancelled, Monocytes % (Manual) Cancelled, Eosinophils % (Manual) Cancelled, Basophils % (Manual) Cancelled, Metamyelocytes % Cancelled, Myelocytes % Cancelled, Promyelocytes % Cancelled, Blast Cells % Cancelled, Plasma Cell % (Manual) Cancelled, Other Cells % Cancelled, Nucleated RBC % Cancelled, Nucleated RBCs/100 WBC Cancelled, Differential Comment Cancelled, Diff Path Review Cancelled, Hypersegmented Neuts Cancelled, Atypical Lymphocytes Cancelled, Reactive Lymphocytes Cancelled, Smudge Cells Cancelled, Toxic Granulation Cancelled, Toxic Vacuolation Cancelled, Dohle Bodies Cancelled, Michelle Rods Cancelled, Platelet Estimate Cancelled, Plt Morphology Comment Cancelled, RBC Morphology Cancelled 05/17/24 08:50: RBC Morphology Cancelled, Polychromasia Cancelled, Hypochromasia Cancelled, Basophilic Stippling Cancelled, Anisocytosis Cancelled, Microcytosis Cancelled, Macrocytosis Cancelled, Spherocytes Cancelled, Sickle Cells Cancelled, Target Cells Cancelled, Tear Drop Cells Cancelled, Ovalocytes Cancelled, Stomatocytes Cancelled, Jasso-Delmont Bodies Cancelled, Boxford Cells Cancelled, Bite Cells Cancelled, Crenated Cell Cancelled, Acanthocytes (Spur) Cancelled, Rouleaux Cancelled, Schistocytes Cancelled, Sodium 136, Potassium 4.1, Chloride 102, Carbon Dioxide 26.0, Anion Gap 8, BUN 24 H, Creatinine 0.97, Estim Creat Clear Calc 47.92, Est GFR (MDRD) Af Amer 73, Est GFR (MDRD) Non-Af 60, BUN/Creatinine Ratio 24.6 H, Glucose 135 H, Calcium 8.9, Total Bilirubin 0.50, AST 20, ALT 27, Alkaline Phosphatase 144 H, Total Protein 8.2, Albumin 3.0 L, Globulin 5.2 H, Albumin/Globulin Ratio 0.6 L 05/17/24 09:55: WBC 9.5, RBC 3.28 L, Hgb 9.6 L, Hct 29.9 L, MCV 91.2, MCH 29.3, MCHC 32.1, RDW Std Deviation 56.6 H, RDW Coeff of Yaw 16.9 H, Plt Count 526 H, MPV 9.1, Immature Gran % (Auto) 1.300 H, Neut % (Auto) 76.2 H, Lymph % (Auto) 10.5 L, Billings % (Auto) 10.7 H, Eos % (Auto) 0.9, Baso % (Auto) 0.4, Absolute Neuts (auto) 7.3, Absolute Lymphs (auto) 1.00, Nucleated RBC % 0.2 Micro: Microbiology 05/16/24 19:35 Stool Enteric Bacteriology - Final 05/16/24 19:35 Stool Stool Lactoferrin - Final Radiography Diagnostic Testing: Radiology Impression Small Bowel X-Ray 05/16/24 08:20 IMPRESSION: No bowel obstruction. Electronically Signed: David Adan MD at 10:55 EST , Physical Exam Narrative Physical Examination: General: Awake, alert, oriented x 3 and cooperative, seated upright in the PCU bed, notes abdomen still nontender, passing flatus, having bowel movements. Skin: Normal color, normal turgor, no icterus, no cyanosis except occasional stage ecchymoses, abrasion likely from lab draws. HEENT: AT/NC, EOMI, PERRLA, mildly dry MM, NG tube in place. Lungs: Mild diminished, greater bases, proper effort, no rales, ronchi or wheezing. Heart: Regular rate and rhythm; no gallop, rub audible. Abdomen: Soft, nontender to palpation, soft, still mildly distended and tympanitic but normalized bowel sounds. Extremities: No cyanosis, no clubbing, no marked peripheral edema. Neurological: Patient awake, alert, oriented as noted, cognitive function intact; pupils equally reactive to light and accommodation, cranial nerves gross normal, moving all 4 extremities, no focal deficits, strength improving, moderately to severely globally decreased Psychiatric: Affect appears fatigued but discussed likely G-tube discontinuation to which she was very excited, no acute evidence of depressive or anxiety feelings. Assessment & Plan Assessment/Plan (1) Intractable nausea and vomiting: PLAN: Plan The patient is a 68 y/o F w/ PMHx: HTN, HLD, Hypothyroidism, Tobacco use, Obesity, Diabetes mellitus type II with chronic neuropathy, PAF, CAD s/p PCI, CKD stage III unclear subtype, Gout, Anxiety and Depression/Bipolar disorder, GERD who presents to the [facility] ED on 05/13/24 with abdominal pain, nausea, emesis, diarrhea with family members with similar symptoms. #1. Acute Abdominal pain with associated nausea, emesis, diarrhea with family members with similar symptoms with questionable adynamic ileus versus developing a partial small bowel obstruction with associated lactic acidosis, 05/15/2024 high suspicion for small bowel obstruction: ED evaluation with CT abdomen and pelvis with fluid-filled distended small bowel segments with no transition point with questionable adynamic ileus versus developing or partial small bowel obstruction, normal appearance large bowel, appendicolith in the tip the appendix however no evidence of appendicitis, evidence status post cholecystectomy without ductal dilatation, admission CBC with WBC 12.1, hemoglobin 12.3, platelets 650 with left shift, admission CMP with sodium 124, potassium 5.4 however moderately hemolyzed thus falsely elevated, chloride 94, At 18, BUN/creatinine 45/2.37, GFR 22, glucose 339, lactic acid 2.4, hepatic profile with alk phos 146, lipase 16, urinalysis with no obvious evidence of UTI. Admitted to telemetry, continued hydration, lactic acid trended down to 1.7. 05/14/24 surgery consultation requested w/ favored ileus over SBO with recommendation for continued n.p.o. status with offered NG tube given it may improve her symptoms but she declined following discussion with surgery, defer any concept of small bowel follow-through until nausea improves, 05/14/24 AM KUB with mildly dilated small bowel loops again possible indicative of ileus or partial obstruction-->05/15/24 KUB worsened appearance with increased small bowel dilatation with concern for small bowel obstruction. 05/15/24 NG tube placed to low intermittent suction. 05/16/24 KUB with decreased small bowel dilatation compared to previous. 05/16/2024 given KUB appearance at onset of flatus surgery initiated SBFT 24 hours protocol. 05/17/24 small bowel follow-through resulted negative however surgery concerned given increased output via NG but following further investigation patient had significant ice chip intake likely increasing falsely the amount. PT/OT/case management following with encouragement of up and active to assist also with charley horses but prevent worsening we can status. Stool studies requested with positive stool lactoferrin WBCs, negative enteric pathogens. 05/18/2024 KUB with interval decrease in small bowel dilatation with oral contrast seen in the ascending colon. 05/18/2024 discussion with general surgery given patient clinical improvement and negative small bowel follow-through with planned discontinuation of NG tube and allowance of clears. Once assure patient is tolerating clears will add back oral medications as noted below. #2. Acute hyponatremia, hypochloremia, suspected hypovolemic etiology given acute presentation #1: Admission sodium 124, chloride 94, continued aggressive hydration with repeat 05/17/2024 CMP with sodium 135, continue to closely monitor, continue IV fluids. #3. Acute kidney injury on CKD stage III unclear subtype per GFR trend: Secondary to acute presentation as noted, poor intake. Admission BUN/Cr 45/2.37, GFR 22, prior baseline creatinine noted to be 1.1-1.5 although has vacillated. Will continue hydration, hold nephrotoxic medication, will obtain FeNa assessment, urinalysis not marked appearing, no evidence of obstructive process on CT abdomen and pelvis. 05/14/2024 BUN/creatinine 29/2.05, GFR 26-> 05/18/2024 BUN/creatinine 19/0.87, GFR 69, continue trending. #4. PAF: Restart oral Coreg and Eliquis, DC Lovenox. #5. CAD: S/p PCI, restart oral Eliquis, Brilinta, statin, Coreg, losartan. DC GA aspirin and Lovenox. #6. Chronic normocytic anemia: Admission hemoglobin 12.3, MCV 91.3 however falsely decreased given dehydrated status, baseline hemoglobin previous to this 9-10, 05/18/2024 hemoglobin 9.8, continue to trend. #7. Anxiety and Depression/Bipolar disorder: Will restart oral Depakote regimen. #8. Diabetes mellitus type II with chronic neuropathy: Hold oral home regimen, continue home insulin regimen with one half dosing while NPO or if hypoglycemic low threshold to hold, plan to initiate clears as noted above, accu checks w/ ISS, restart oral gabapentin regimen. #9. Hypothyroidism: Restart oral levothyroxine regimen. #10. Hypertension: Restart oral HTN regimen, PRN hydralazine. #11. Hyperlipidemia: Restart oral statin. #12. Obesity: Weight loss and lifestyle changes encouraged. #13. Tobacco Abuse: Encouraged cessation, inpatient consultation per RT, NR if desired. #14. GERD: Maintained on IV PPI however with diet start will transition to oral PPI. #15. DVT prophylaxis: DC Lovenox, restart oral Eliquis. Charges/Coding Visit Charges Inpatient E&M: 80453 Subs Hosp L2
--- NOTE | 2024-05-18 06:45 | RAD_ITS ---
INDICATION: Follow-up dilated small bowel s/p SBFT EXAMINATION/TECHNIQUE: X-RAY - XR Abdomen 1 View COMPARISON: 05/16/2024 FINDINGS: BOWEL GAS PATTERN: Interval decrease in small bowel dilatation with oral contrast seen in the ascending colon now. FREE AIR: Not assessed on a single supine view. ORGANOMEGALY: Not seen. CALCIFICATIONS: No abnormal calcifications observed. LOWER CHEST: No acute pathology. BONES AND SOFT TISSUES: No acute pathology. RAD/Abdomen Single View (Portable) IMPRESSION: Interval decrease in small bowel dilatation with oral contrast seen in the ascending colon now. Electronically Signed: Fox Frank MD at 8:35 EST ,
[2024-05-18 06:53] LABS: Absolute Lymphocyte Count 1.25 X10^3/uL (0.83-4.51); Absolute Neutrophil Count 8.5 X10^3/uL (2.0-7.7); Basophil# 0.05 X10^3/uL; Basophil% 0.5 % (0-1); Eosinophil# 0.08 X10^3/uL; Eosinophils% 0.7 % (0-5); Hematocrit 31.3 % (37-47); Hemoglobin 9.8 g/dL (12.0-15.0); Lymphocyte # 1.25 X10^3/ul (0.83-4.51); Lymphocyte % 11.3 % (19-41); Mean Corp Hgb Conc 31.3 g/dL (32-36); Mean Corpuscular Hgb 28.9 pg (27.0-32.0); Mean Corpuscular Volume 92.3 fL (81-99); Mean Platelet Vol. 9.1 fl (6.2-12.0); Monocyte# 1.07 X10^3/uL; Monocyte% 9.7 % (0-10); NRBC Flagged by Analyzer 0 % (0-5); Neutrophil # 8.47 X10^3/uL (2.7-7.7); Neutrophil % 76.6 % (47-70); Platelet Count 534 K/mm3 (150-450); RBC Distribution Width CV 16.8 % (11.6-14.6); RBC Distribution Width SD 56.8 fl (35.1-43.9); Red Blood Count 3.39 M/mm3 (4.2-5.4); White Blood Count 11.1 K/mm3 (4.4-11.0)
[2024-05-18 07:15] LABS: ALB/GLOB Ratio 0.6 RATIO (0.9-2.4); AST(SGOT) 15 U/L (15-37); Alanine Aminotransfer ALT/SGPT 23 U/L (13-56); Albumin, Serum 2.7 g/dL (3.2-5.0); Alkaline Phosphatase 140 U/L (45-117); Anion Gap 7 (5-15); BUN 19 mg/dL (7-18); BUN/Creat Ratio 21.8 RATIO (10-20); Calcium,Total 9.1 mg/dL (8.5-10.1); Chloride 100 mmol/L (98-107); Creatinine, Serum 0.87 mg/dL (0.55-1.02); EST Glomerular Filtration Rate 69 mL/min (>60); Est Glom Filt Rate - Afr Amer 83 mL/min (>60); Estimated Creatinine Clearance 52.44 ml/min; Globulin 4.7 g/dL (2.2-4.2); Glucose 133 mg/dL (74-106); Potassium 3.5 mmol/L (3.5-5.1); Protein, Total 7.4 g/dL (6.4-8.2); Sodium Level 135 mmol/L (136-145)
[2024-05-18] MEDS: Pantoprazole Sodium 40 MG in 0.9% Normal Saline (100mL MB+) 100 ML 330 MG IV (09:22)
--- NOTE | 2024-05-18 10:43 | CASEMGMT ---
WU MACKAY NOTE: Pt only ambulated 5 ft yesterday w/therapy w/use of walker d/t pain to rt foot. Pt declines wanting to go to SNF. WU MACKAY to room this AM. Pt resting in bed. Pt wishes to discharge home and states does not want HHC either, stating, I don't need it. Discussed OP therapy. She states she would still take a script for that, but states does not know, once she returns home, if she is even going to go do that either. 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 She was given script for OP therapy at this time and made aware she can take to any location of choices. She voices understanding and denies having further dc needs/concerns. Leidy MEDINA RN CM
[2024-05-18] MEDS: Gabapentin 600 MG Tablet PO ×2 (12:05→21:21)
--- NOTE | 2024-05-18 12:20 | PN.SURG_ITS ---
Subjective Subjective Patient seen and examined during AM rounds. She is found resting in bed but still complaining of primarily foot discomfort. She shares that she is both starving and has exceptional thirst. She confirms that she continues to pass gas and have bowel movements. Objective Data Objective Data Vital Signs: Vital Signs Temp Pulse Resp BP Pulse Ox O2 Del Method 98.0 F 99 18 134/73 H 92 Room Air 05/18/24 09:12 05/18/24 09:12 05/18/24 09:12 05/18/24 09:12 05/18/24 09:12 05/18/24 09:17 Oxygen Delivery Method Room Air Weight: 141 lb 5.061 oz Body Mass Index (BMI) 28.5 Intake & Output: Intake and Output for Last 24 Hours 05/16/24 05/17/24 05/18/24 23:59 23:59 23:59 Intake Total 110 / 110 110 / 110 235 / 235 Output Total 1000 / 1000 1100 / 1350 400 / 400 Balance -890 / -890 -990 / -1240 -165 / -165 Medical Nutrition Assessment Dietitian: Malnutrition Criteria Met Start: 05/17/24 15:05 Freq: Status: Active Protocol: Document 05/17/24 15:06 SB (Rec: 05/17/24 15:06 SB [id number]) Nutrition Malnutrition Evidence of Malnutrition Exists Yes Malnutrition (severe): Acute Illness/Injury Evidenced By Suboptimal Energy Intake ( Severe),Weight Loss (Severe) Clinical Problem Acute Disease or Injury Related Malnutrition Etiology severe related to inadequate oral intake and altered GI function Signs/Symptoms as evidenced by PO meeting <75 % of estimated nutrition needs 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 5 months; extended NPO x 4 days. Status Active Problem Altered Nutrient-Related Laboratory Values Etiology related to endocrine dysfunction/diabetes Signs/Symptoms as evidneced by A1C 8.8% Status Active Problem Recommendation Dietitian Recommendations/Changes If able to take PO recommend advanced diet as tolerated to 1600 calorie controlled/ consistent carbohydrate diet. If PO reminded NPO, recommend nutrition support. Consult RD for initiated and management of TPN as needed. Will add 1 scoop of beneprotein TID with meals. Will monitor weight, as available. Reviewed and approved by Karen Tate, MS, RDN, LD. Lab / Micro Data 05/18/24 05:40 05/18/24 05:40 Labs: Laboratory Results - last 24 hr 05/18/24 05:40: WBC 11.1 H, RBC 3.39 L, Hgb 9.8 L, Hct 31.3 L, MCV 92.3, MCH 28.9, MCHC 31.3 L, RDW Std Deviation 56.8 H, RDW Coeff of Yaw 16.8 H, Plt Count 534 H, MPV 9.1, Immature Gran % (Auto) 1.200 H, Neut % (Auto) 76.6 H, Lymph % (Auto) 11.3 L, Crook % (Auto) 9.7, Eos % (Auto) 0.7, Baso % (Auto) 0.5, Absolute Neuts (auto) 8.5 H, Absolute Lymphs (auto) 1.25, Nucleated RBC % 0, Sodium 135 L , Potassium 3.5, Chloride 100, Carbon Dioxide 27.0, Anion Gap 7, BUN 19 H, Creatinine 0.87, Estim Creat Clear Calc 52.44, Est GFR (MDRD) Af Amer 83, Est GFR (MDRD) Non-Af 69, BUN/Creatinine Ratio 21.8 H, Glucose 133 H, Calcium 9.1, Total Bilirubin 0.40, AST 15, ALT 23, Alkaline Phosphatase 140 H, Total Protein 7.4, Albumin 2.7 L, Globulin 4.7 H, Albumin/Globulin Ratio 0.6 L Micro: Microbiology 05/16/24 19:35 Stool Enteric Bacteriology - Final 05/16/24 19:35 Stool Stool Lactoferrin - Final Radiography Diagnostic Testing: Radiology Impression KUB X-Ray 05/18/24 06:45 IMPRESSION: Interval decrease in small bowel dilatation with oral contrast seen in the ascending colon now. Electronically Signed: Fox Frank MD at 8:35 EST , Physical Exam Const oriented x3 and no apparent distress Resp normal respiratory effort GI GI Narrative: Nasogastric tube in place with approximately 750 mL of green bilious fluid in the collection canister. Patient's abdomen is less distended and less tympanitic (but this character does persist to some degree in the left upper quadrant). Patient denies any tenderness with palpation. Assessment & Plan Assessment/Plan (1) Intractable nausea and vomiting: PLAN: Patient is a 68-year-old female that was admitted with intractable nausea and vomiting and underwent NG tube placement and a small bowel follow-through 2 days ago. At the completion of the study yesterday no clear area of obstruction was noted, however, I noted the persistence of centrally?located dilated loops of small bowel and requested that nursing return the patient's NG tube to suction as I was concerned for an ongoing adynamic ileus. This morning Ms. Dela Cruz confirms ongoing bowel activity and her KUB is more reassuring with significant interval decrease in the caliber of the small bowel noted yesterday. Her NG tube output remains moderately high with 400 reported overnight and approximately additional 150 to 200 mL today (nursing reports a flush of 125 mL was given prior to my evaluation and the patient has had 1 cup of ice chips). I discussed with Ms. Dela Cruz my hesitation with removing her NG tube and stressed that if done so we would need to limit her p.o. intake thereafter. Upon receiving her confirmation of understanding and commitment to limit this intake I did proceed with tube removal. I have asked her to be restricted to sips and chips until reevaluation. I have encouraged her to ambulate as much as possible and otherwise be upright in the chair. Lastly, I did review her enteric pathogen panel which finalized but was negative for any of the pathogens assayed. Jb Jackson MD General Surgery Endocrine Surgery Pager: [facility] [address] [place] [address], [facility], [address] [place] [id number] Office: [phone] (2) Paralytic ileus of small intestine: Charges/Coding Visit Charges Inpatient E&M: 34926 Subs Hosp L2
[2024-05-18] MEDS: Nitroglycerin (INPATIENT USE) 0.4 MG TAB.SUBL SL (19:17)
--- NOTE | 2024-05-18 19:19 | EKG12_ITS ---
Test Reason : CP Blood Pressure : */* mmHG Vent. Rate : 109 BPM Atrial Rate : 109 BPM P-R Int : 136 ms QRS Dur : 94 ms QT Int : 356 ms P-R-T Axes : 65 -63 65 degrees QTcB Int : 479 ms Sinus tachycardia with occasional Premature ventricular complexes Left axis deviation Incomplete right bundle branch block Nonspecific ST abnormality Abnormal ECG When compared with ECG of 14-May-2024 09:21, Premature ventricular complexes are now Present Premature atrial complexes are no longer Present Confirmed by LANNY LOPEZ, PANKAJ ([id number]), research editor AZAEL THORNE ([id number]) on 05/20/2024 11:09:54 AM Referred By: DR Lake Confirmed By: PANKAJ CA MD
--- NOTE | 2024-05-18 19:24 | NURSING ---
PT HAVING CHEST PAIN AND NITRO GIVEN AT THIS TIME BY THIS RN COMPUTER WOULD NOT LET ME CHART THE SECOND DOSE OF NITRO- AFTER THIS DOSE PT SAID IT HELPED HER CHEST PAIN
--- NOTE | 2024-05-18 19:35 | NURSING ---
PT C/O CHEST PAIN AT SHIFT CHANGE- NITRO GIVEN X 2 - EKG DONE AND SHOWS SINUS TACH WITH PAC- TEXTING DR - PT REPORTS PAIN IS GETTING BETTER
[2024-05-18 20:43] LABS: Troponin-I HS 23 pg/mL (3.0-54.0)
[2024-05-18] MEDS: Divalproex Sodium 125 MG SPRINKLE PO (21:21)
[2024-05-18] MEDS: Amitriptyline 25 MG Tablet 50 MG PO (21:22)
[2024-05-18] MEDS: Atorvastatin Calcium 80 MG Tablet PO (21:23)
[2024-05-18] MEDS: TICAGRELOR 90 MG TABLET PO (21:23)
[2024-05-18] MEDS: Allopurinol 100 MG Tablet PO (21:23)
[2024-05-18] MEDS: Pantoprazole Sodium 40 MG Tablet PO (21:24)
[2024-05-18] MEDS: APIXABAN 5 MG TABLET PO (22:21)
[2024-05-18 22:48] LABS: Troponin-I HS 20 pg/mL (3.0-54.0)
[2024-05-18] MEDS: Insulin Lispro 100 UNIT/ML INSULN.PEN SC (23:44)
[2024-05-19 03:04] LABS: Troponin-I HS 29 pg/mL (3.0-54.0)
[2024-05-19 03:35] VITALS: BP 99/61; PULSE 95; RESP 18; TEMP 36.2; O2SAT 94
--- NOTE | 2024-05-19 05:20 | RAD_ITS ---
EXAM: XR ABDOMEN, 1 VIEW CLINICAL INDICATION: SBO TECHNIQUE: Frontal supine view of the abdomen/pelvis. COMPARISON: 05/18/2024 FINDINGS: GASTROINTESTINAL TRACT: Mild gaseous distention of loops of bowel are identified similar in appearance to the prior examination. Minimal oral contrast partially visualized within the colon which is relatively decompressed as best visualized. ORGANS: Normal as visualized. No organomegaly. No abnormal calcifications. BONES/JOINTS: Degenerative changes. SOFT TISSUES: Surgical clips in the right upper quadrant. RAD/Abdomen Single View (Portable) IMPRESSION: Mild gaseous distention of loops of bowel are identified similar in appearance to the prior examination. Minimal oral contrast partially visualized within the colon which is relatively decompressed as best visualized. No overt evidence of small bowel obstruction. Electronically Signed: Sarath Cage DO at 7:54 EST ,
[2024-05-19 05:23] VITALS: BMI 30.1
[2024-05-19] MEDS: Insulin Lispro 100 UNIT/ML INSULN.PEN SC ×5 (05:52→23:45)
--- NOTE | 2024-05-19 06:32 | PN.HOSP_ITS ---
Reason for Visit Reason for Visit: Diagnoses Elevated white blood cell count, unspecified (05/13/24) Thrombocytosis, unspecified (05/13/24) Dehydration (05/13/24) Hypo-osmolality and hyponatremia (05/13/24) Acidosis (05/13/24) Acidosis, unspecified (05/13/24) Hyperkalemia (05/13/24) Noninfective gastroenteritis and colitis, unspecified (05/13/24) Paralytic ileus (05/13/24) Acute kidney failure, unspecified (05/13/24) Nausea with vomiting, unspecified (05/13/24) Diarrhea, unspecified (05/13/24) Adverse effect of unspecified drugs, medicaments and biological substances, initial encounter (05/13/24) Subjective Subjective Patient overnight with chest discomfort described more so as dyspepsia, but work-up overnight obtained w/ EKG unremarkable, NG x 2 with resolution, GI cocktail given, troponin x 3 negative. Following GI cocktail she did have resolution of discomfort as well. She has been tolerating sips and chips with then transition to clears the day prior. KUB this a.m. with mild gas distention of loops of bowel similar appearance to previous with minimal oral contrast partially visualized within the colon which is relatively decompressed at best visualized with no overt evidence of any SBO. Additionally, patient declined her insulin therapy the evening prior with resulting elevated blood sugars through the morning. Patient denies fevers, chills, nausea, emesis, abdominal pain or dyspnea. Objective Data Objective Data Vital Signs: Vital Signs Temp Pulse Resp BP Pulse Ox O2 Del Method O2 Flow Rate 97.2 F L 95 18 99/61 94 Room Air 2 05/19/24 03:35 05/19/24 03:35 05/19/24 03:35 05/19/24 03:35 05/19/24 03:35 05/19/24 03:35 05/18/24 21:09 Oxygen Flow Rate (L/min) 2 Oxygen Delivery Method Room Air Weight: 149 lb 4.047 oz Body Mass Index (BMI) 30.1 Intake & Output: Intake and Output for Last 24 Hours 05/17/24 05/18/24 05/19/24 23:59 23:59 23:59 Intake Total 110 / 110 660 / 660 Output Total 1100 / 1350 1150 / 1150 0 / 0 Balance -990 / -1240 -490 / -490 0 / 0 Medical Nutrition Assessment Dietitian: Malnutrition Criteria Met Start: 05/17/24 15:05 Freq: Status: Active Protocol: Document 05/17/24 15:06 SB (Rec: 05/17/24 15:06 SB [id number]) Nutrition Malnutrition Evidence of Malnutrition Exists Yes Malnutrition (severe): Acute Illness/Injury Evidenced By Suboptimal Energy Intake ( Severe),Weight Loss (Severe) Clinical Problem Acute Disease or Injury Related Malnutrition Etiology severe related to inadequate oral intake and altered GI function Signs/Symptoms as evidenced by PO meeting <75 % of 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 5 months; extended NPO x 4 days. Status Active Problem Altered Nutrient-Related Laboratory Values Etiology related to endocrine dysfunction/diabetes Signs/Symptoms as evidneced by A1C 8.8% Status Active Problem Recommendation Dietitian Recommendations/Changes If able to take PO recommend advanced diet as tolerated to 1600 calorie controlled/ consistent carbohydrate diet. If PO reminded NPO, recommend nutrition support. Consult RD for initiated and management of TPN as needed. Will add 1 scoop of beneprotein TID with meals. Will monitor weight, as available. Reviewed and approved by Karen Tate MS, RDN, LD. Lab / Micro Data 05/19/24 06:30 05/19/24 06:30 Labs: Laboratory Results - last 24 hr 05/18/24 05:40: WBC 11.1 H, RBC 3.39 L, Hgb 9.8 L, Hct 31.3 L, MCV 92.3, MCH 28.9, MCHC 31.3 L, RDW Std Deviation 56.8 H, RDW Coeff of Yaw 16.8 H, Plt Count 534 H, MPV 9.1, Immature Gran % (Auto) 1.200 H, Neut % (Auto) 76.6 H, Lymph % (Auto) 11.3 L, [place] % (Auto) 9.7, Eos % (Auto) 0.7, Baso % (Auto) 0.5, Absolute Neuts (auto) 8.5 H, Absolute Lymphs (auto) 1.25, Nucleated RBC % 0, Sodium 135 L , Potassium 3.5, Chloride 100, Carbon Dioxide 27.0, Anion Gap 7, BUN 19 H, Creatinine 0.87, Estim Creat Clear Calc 52.44, Est GFR (MDRD) Af Amer 83, Est GFR (MDRD) Non-Af 69, BUN/Creatinine Ratio 21.8 H, Glucose 133 H, Calcium 9.1, Total Bilirubin 0.40, AST 15, ALT 23, Alkaline Phosphatase 140 H, Total Protein 7.4, Albumin 2.7 L, Globulin 4.7 H, Albumin/Globulin Ratio 0.6 L 05/18/24 20:17: Troponin I High Sens 23 05/18/24 22:11: Troponin I High Sens 20 05/19/24 02:21: Troponin I High Sens 29 Micro: Microbiology 05/16/24 19:35 Stool Enteric Bacteriology - Final 05/16/24 19:35 Stool Stool Lactoferrin - Final Radiography Diagnostic Testing: Radiology Impression KUB X-Ray 05/18/24 06:45 IMPRESSION: Interval decrease in small bowel dilatation with oral contrast seen in the ascending colon now. Electronically Signed: Fox Frank MD at 8:35 EST , Physical Exam Narrative Physical Examination: General: Awake, alert, oriented x 3 and cooperative, seated upright in PCU bed, fatigued, denies any abdominal pain, notes ongoing flatus but has not had a bowel movement today yet. Skin: Normal color, normal turgor, no icterus, no cyanosis except occasional stage ecchymoses, abrasion likely from lab draws. HEENT: AT/NC, EOMI, PERRLA, improved MMM. Lungs: Mild diminished, greater bases, proper effort, no rales, ronchi or wheezing. Heart: Regular rate and rhythm; no gallop, rub audible. Abdomen: Soft, nontender to palpation, soft, still mildly tympanitic but noted bowel sounds in all quadrants. Extremities: No cyanosis, no clubbing, no marked peripheral edema. Neurological: Patient awake, alert, oriented as noted, cognitive function intact; pupils equally reactive to light and accommodation, cranial nerves gross normal, moving all 4 extremities, no focal deficits, strength improving, moderately to severely globally decreased Psychiatric: Affect appears fatigued no acute evidence of depressive or anxiety feelings. Assessment & Plan Assessment/Plan (1) Intractable nausea and vomiting: PLAN: Plan The patient is a 68 y/o F w/ PMHx: HTN, HLD, Hypothyroidism, Tobacco use, Obesity, Diabetes mellitus type II with chronic neuropathy, PAF, CAD s/p PCI, CKD stage III unclear subtype, Gout, Anxiety and Depression/Bipolar disorder, GERD who presents to the [facility] ED on 05/13/24 with abdominal pain, nausea, emesis, diarrhea with family members with similar symptoms. #1. Acute Abdominal pain with associated nausea, emesis, diarrhea with family members with similar symptoms with questionable adynamic ileus versus developing a partial small bowel obstruction with associated lactic acidosis, 05/15/2024 high suspicion for small bowel obstruction: ED evaluation with CT abdomen and pelvis with fluid-filled distended small bowel segments with no transition point with questionable adynamic ileus versus developing or partial small bowel obstruction, normal appearance large bowel, appendicolith in the tip the appendix however no evidence of appendicitis, evidence status post cholecystectomy without ductal dilatation, admission CBC with WBC 12.1, hemoglobin 12.3, platelets 650 with left shift, admission CMP with sodium 124, potassium 5.4 however moderately hemolyzed thus falsely elevated, chloride 94, At 18, BUN/creatinine 45/2.37, GFR 22, glucose 339, lactic acid 2.4, hepatic profile with alk phos 146, lipase 16, urinalysis with no obvious evidence of UTI. Admitted to telemetry, continued hydration, lactic acid trended down to 1.7. 05/14/24 surgery consultation requested w/ favored ileus over SBO with recommendation for continued n.p.o. status with offered NG tube given it may improve her symptoms but she declined following discussion with surgery, defer any concept of small bowel follow-through until nausea improves, 05/14/24 AM KUB with mildly dilated small bowel loops again possible indicative of ileus or partial obstruction-->05/15/24 KUB worsened appearance with increased small bowel dilatation with concern for small bowel obstruction. 05/15/24 NG tube placed to low intermittent suction. 05/16/24 KUB with decreased small bowel dilatation compared to previous. 05/16/2024 given KUB appearance at onset of flatus surgery initiated SBFT 24 hours protocol. 05/17/24 small bowel follow- through resulted negative however surgery concerned given increased output via NG but following further investigation patient had significant ice chip intake likely increasing falsely the amount. PT/OT/case management following with encouragement of up and active to assist also with charley horses but prevent worsening we can status. Stool studies requested with positive stool lactoferrin WBCs, negative enteric pathogens. 05/18/2024 KUB with interval decrease in small bowel dilatation with oral contrast seen in the ascending colon. 05/18/2024 NG tube discontinued. 05/18/2024 evening patient eventually transition from sips and chips to clears. 05/19/24 KUB with mild gaseous distention of loops of bowel similar to prior exam, minimal oral contrast partially visualized within the colon relatively decompressed at best visualized with no overt bowel obstruction. Per discussion with surgery they are very slowly going to advance her and will defer this to their discretion. #2. 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 Encouraged dosing this morning and will transition to at least a moderate dose insulin sliding scale. Continued on oral gabapentin regimen. #3. Acute hyponatremia, hypochloremia, suspected hypovolemic etiology given acute presentation #1: Admission sodium 124, chloride 94, hydrated with IVFs, repeat 05/17/2024 CMP with sodium 135. 05/19/24 Na 130, Chl 95 with concern for lessened intake, administered IVF bolus and will monitor intake. If not notable then low threshold to restart MIVFs. Repeat CMP in AM. #4. Acute kidney injury on CKD stage III unclear subtype per GFR trend: Secondary to acute presentation as noted, poor intake. Admission BUN/Cr 45/2.37, GFR 22, prior baseline creatinine noted to be 1.1-1.5 although has vacillated. Hydrated, hold nephrotoxic medications. Urinalysis not marked appearing, no evidence of obstructive process on CT abdomen and pelvis. 05/14/2024 BUN/creatinine 29/2.05, GFR 26-> 05/19/2024 BUN/creatinine 21/1.09, GFR 53. Will continue to trend. As noted above 05/19/2020 for planned IV fluid bolus and continued close monitoring of intake. Given patient resolution of acute kidney injury patient's losartan was resumed as noted. #5. Hypokalemia, hypomagnesemia: Admission K+ 3.2, magnesium 1.3, supplementation given, repeat levels in AM. #6. PAF: We will continue patient home Coreg with hold parameters and home Eliquis regimen. #7. CAD: s/p PCI, will continue patient home Eliquis, Brilinta, statin in addition to Coreg and lisinopril with hold parameters as needed. #8. Chronic normocytic anemia: Admission hemoglobin 12.3, MCV 91.3 however falsely decreased given dehydrated status, baseline hemoglobin previous to this 9-, 05/19/2024 hemoglobin 10.3, continue to trend. #9. Anxiety and Depression/Bipolar disorder: Continue home Depakote regimen. #10. Hypothyroidism: Continue home levothyroxine regimen. #11. Hypertension: Continue patient home Coreg, isosorbide, losartan home regimen with specific hold parameters in place, PRN hydralazine. #12. Hyperlipidemia: Continue home statin. #13. Obesity: Weight loss and lifestyle changes encouraged. #14. Tobacco Abuse: Encouraged cessation, inpatient consultation per RT, NR if desired. #15. GERD: 05/19/24 increased BID PPI given dyspepsia overnight. #16. DVT prophylaxis: Continued on home Eliquis. Charges/Coding Visit Charges Inpatient E&M: 17902 [facility] Hosp L3
[2024-05-19 07:22] LABS: Absolute Lymphocyte Count 1.59 X10^3/uL (0.83-4.51); Basophil# 0.07 X10^3/uL; Basophil% 0.6 % (0-1); Eosinophil# 0.15 X10^3/uL; Eosinophils% 1.4 % (0-5); Hemoglobin 10.3 g/dL (12.0-15.0); Lymphocyte # 1.59 X10^3/ul (0.83-4.51); Lymphocyte % 14.5 % (19-41); Mean Corp Hgb Conc 32.2 g/dL (32-36); Mean Corpuscular Hgb 28.9 pg (27.0-32.0); Mean Corpuscular Volume 89.9 fL (81-99); Monocyte# 0.98 X10^3/uL; Monocyte% 8.9 % (0-10); NRBC Flagged by Analyzer 0.2 % (0-5); Neutrophil # 7.99 X10^3/uL (2.7-7.7); Neutrophil % 72.6 % (47-70); Platelet Count 543 K/mm3 (150-450); RBC Distribution Width CV 16.4 % (11.6-14.6); RBC Distribution Width SD 54.1 fl (35.1-43.9); Red Blood Count 3.56 M/mm3 (4.2-5.4)
[2024-05-19 07:50] LABS: ALB/GLOB Ratio 0.5 RATIO (0.9-2.4); AST(SGOT) 21 U/L (15-37); Alanine Aminotransfer ALT/SGPT 23 U/L (13-56); Albumin, Serum 2.4 g/dL (3.2-5.0); Alkaline Phosphatase 125 U/L (45-117); Anion Gap 11 (5-15); BUN 21 mg/dL (7-18); BUN/Creat Ratio 19.3 RATIO (10-20); Calcium,Total 9.3 mg/dL (8.5-10.1); Chloride 95 mmol/L (98-107); Creatinine, Serum 1.09 mg/dL (0.55-1.02); EST Glomerular Filtration Rate 53 mL/min (>60); Est Glom Filt Rate - Afr Amer 64 mL/min (>60); Globulin 4.6 g/dL (2.2-4.2); Glucose 236 mg/dL (74-106); Potassium 3.2 mmol/L (3.5-5.1); Sodium Level 130 mmol/L (136-145)
[2024-05-19 08:15] VITALS: O2SAT 95
[2024-05-19 09:15] VITALS: BP 120/80; PULSE 106; RESP 18; TEMP 36.4; O2SAT 96
[2024-05-19] MEDS: Pantoprazole Sodium 40 MG Tablet PO ×2 (09:19→23:37)
[2024-05-19] MEDS: Isosorbide Mononitrate 30 MG Tablet PO (09:19)
[2024-05-19] MEDS: Divalproex Sodium 125 MG SPRINKLE PO ×2 (09:19→23:35)
[2024-05-19] MEDS: Losartan Potassium 50 MG Tablet PO (09:19)
[2024-05-19] MEDS: Gabapentin 600 MG Tablet PO ×2 (09:19→23:41)
[2024-05-19] MEDS: APIXABAN 5 MG TABLET PO ×2 (09:20→23:36)
[2024-05-19] MEDS: Colestipol 1 GM TABLET PO (09:20)
[2024-05-19] MEDS: TICAGRELOR 90 MG TABLET PO ×2 (09:20→23:28)
[2024-05-19] MEDS: Carvedilol 6.25 MG Tablet PO (09:20)
[2024-05-19 10:26] LABS: Magnesium 1.3 mg/dL (1.6-2.6)
[2024-05-19] MEDS: Potassium Chloride Oral Tablet 20 MEQ 40 MEQ PO (10:29)
[2024-05-19] MEDS: Magnesium Sulfate 2 GM in Dextrose 5%-Water (100mL Bag) 100 ML IV (11:30)
--- NOTE | 2024-05-19 11:46 | PN.SURG_ITS ---
Subjective Subjective Patient seen and examined during AM rounds. She states that she is very tired as she had frequent interruptions with visitors overnight. She denies any nausea or intolerance of her liquid diet. She shares that she has continued to pass flatus but also confirms EMR record that she has not had any bowel movements for 2 days. She denies any abdominal discomfort presently. Objective Data Objective Data Vital Signs: Vital Signs Temp Pulse Resp BP Pulse Ox O2 Del Method O2 Flow Rate 97.5 F L 106 H 18 120/80 96 Room Air 2 05/19/24 09:15 05/19/24 09:15 05/19/24 09:15 05/19/24 09:15 05/19/24 09:15 05/19/24 09:15 05/18/24 21:09 Oxygen Flow Rate (L/min) 2 Oxygen Delivery Method Room Air Weight: 149 lb 4.047 oz Body Mass Index (BMI) 30.1 Intake & Output: Intake and Output for Last 24 Hours 05/17/24 05/18/24 05/19/24 23:59 23:59 23:59 Intake Total 110 / 110 660 / 660 Output Total 1100 / 1350 1150 / 1150 0 / 0 Balance -990 / -1240 -490 / -490 0 / 0 Medical Nutrition Assessment Dietitian: Malnutrition Criteria Met Start: 05/17/24 15:05 Freq: Status: Active Protocol: Document 05/17/24 15:06 SB (Rec: 05/17/24 15:06 SB [id number]) Nutrition Malnutrition Evidence of Malnutrition Exists Yes Malnutrition (severe): Acute Illness/Injury Evidenced By Suboptimal Energy Intake ( Severe),Weight Loss (Severe) Clinical Problem Acute Disease or Injury Related Malnutrition Etiology severe related to inadequate oral intake and altered GI function Signs/Symptoms as evidenced by PO meeting <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 5 months; extended NPO x 4 days. Status Active Problem Altered Nutrient-Related Laboratory Values Etiology related to endocrine dysfunction/diabetes Signs/Symptoms as evidneced by A1C 8.8% Status Active Problem Recommendation Dietitian Recommendations/Changes If able to take PO recommend advanced diet as tolerated to 1600 calorie controlled/ consistent carbohydrate diet. If PO reminded NPO, recommend nutrition support. Consult RD for initiated and management of TPN as needed. Will add 1 scoop of beneprotein TID with meals. Will monitor weight, as available. Reviewed and approved by Karen Tate, MS, RDN, LD. Lab / Micro Data 05/19/24 06:30 05/19/24 06:30 Labs: Laboratory Results - last 24 hr 05/18/24 20:17: Troponin I High Sens 23 05/18/24 22:11: Troponin I High Sens 20 05/19/24 02:21: Troponin I High Sens 29 05/19/24 06:30: WBC 11.0, RBC 3.56 L, Hgb 10.3 L, Hct 32.0 L, MCV 89.9, MCH 28.9, MCHC 32.2, RDW Std Deviation 54.1 H, RDW Coeff of Yaw 16.4 H, Plt Count 543 H, MPV 9.0, Immature Gran % (Auto) 2.000 H, Neut % (Auto) 72.6 H, Lymph % (Auto) 14.5 L, [place] % (Auto) 8.9, Eos % (Auto) 1.4, Baso % (Auto) 0.6, Absolute Neuts (auto) 8.0 H, Absolute Lymphs (auto) 1.59, Nucleated RBC % 0.2, Sodium 130 L, Potassium 3.2 L, Chloride 95 L, Carbon Dioxide 24.0, Anion Gap 11, BUN 21 H, Creatinine 1.09 H, Estim Creat Clear Calc 43.00, Est GFR (MDRD) Af Amer 64, Est GFR (MDRD) Non-Af 53 L, BUN/Creatinine Ratio 19.3, Glucose 236 H, Calcium 9.3, M agnesium 1.3 L, Total Bilirubin 0.70, AST 21, ALT 23, Alkaline Phosphatase 125 H , Total Protein 7.0, Albumin 2.4 L, Globulin 4.6 H, Albumin/Globulin Ratio 0.5 L Micro: Microbiology 05/16/24 19:35 Stool Enteric Bacteriology - Final 05/16/24 19:35 Stool Stool Lactoferrin - Final Radiography Diagnostic Testing: Radiology Impression KUB X-Ray 05/19/24 05:20 IMPRESSION: Mild gaseous distention of loops of bowel are identified similar in appearance to the prior examination. Minimal oral contrast partially visualized within the colon which is relatively decompressed as best visualized. No overt evidence of small bowel obstruction. Electronically Signed: Sarath Cage, DO at 7:54 EST , Physical Exam Const oriented x3 and no apparent distress GI GI Narrative: Increased abdominal distention, soft, nontender to palpation x 4 quadrants, tympanitic primarily over the left upper quadrant Assessment & Plan Assessment/Plan (1) Intractable nausea and vomiting: PLAN: Patient is a 68-year-old female that was admitted with intractable nausea and vomiting and underwent NG tube placement and a small bowel follow-through 3 days ago. At the completion of the study no clear area of obstruction was noted, however, I noted the persistence of centrally?located dilated loops of small bowel and requested that nursing return the patient's NG tube to suction as I was concerned for an ongoing adynamic ileus. This tube was discontinued at bedside yesterday after discussing need to carefully advance a diet and patient was ultimately given a clear liquid diet without carbonation. She reports that she is tolerating this diet, but denies bowel movement over the last 2 days and KUB demonstrates persistent dilation of the small bowel while exam shows some increase in her abdominal distention. With these radiographic and exam findings I am reluctant to advance her diet further. I would like to try stimulation with a suppository to see if this yields the desired effect. Therefore, for the interim continue clear liquid diet and continue to optimize electrolyte status. Patient is also asked to try to ambulate as tolerated and be out of bed in the chair. Lastly, we need to minimize patient's risk for decreased motility and eliminate sources such as narcotic pain medications or possible. Jb Jackson MD General Surgery Endocrine Surgery Pager: [facility] [address] [place] [address], [facility], [address] [place] [address] Office: [phone] (2) Paralytic ileus of small intestine: Charges/Coding Visit Charges Inpatient E&M: 75944 Subs Hosp L2
[2024-05-19] MEDS: Bisacodyl 10 MG Suppository RC (13:56)
[2024-05-19] MEDS: Insulin Glargine-YFGN 100 UNIT/ML Pen 50 UNIT SC (14:37)
[2024-05-19 14:40] VITALS: BP 79/52; PULSE 63; RESP 16; TEMP 36.4; O2SAT 97
[2024-05-19] MEDS: 0.9% Normal Saline (500mL Bag) 500 ML 999 ML IV ×2 (15:50→17:00)
--- NOTE | 2024-05-19 16:26 | PCM.HOSP.N ---
Hospitalist Note Patient with episode of hypotension, not significantly symptomatic. She denies any nausea, emesis or abdominal pain. She does report that this occasionally happens at home after she takes her blood pressure medications. Discussed with patient's nurse need to stagger her blood pressure medications and hold parameters are in place already but will need to see what her blood pressure does after single agent and then may require de-escalation or decrease or stop depending on trending.
[2024-05-19] MEDS: Meclizine HCl 25 MG Tablet PO (18:29)
[2024-05-19 23:00] VITALS: BP 97/58; PULSE 78; RESP 18; TEMP 36.1; O2SAT 98
[2024-05-19] MEDS: Amitriptyline 25 MG Tablet 50 MG PO (23:35)
[2024-05-19] MEDS: Atorvastatin Calcium 80 MG Tablet PO (23:37)
[2024-05-19] MEDS: Allopurinol 100 MG Tablet PO (23:37)
[2024-05-19] MEDS: 0.9% Saline Lock 10 ML Syringe IV (23:38)
[2024-05-20] VITALS (7 sets, daily range): BP systolic 86–119; BP diastolic 46–72; PULSE 61–86; RESP 14–18; TEMP 35.8–36.6; O2SAT 93–100; BMI 30.7
--- NOTE | 2024-05-20 05:55 | RAD_ITS ---
We are attempting to reach an attending provider to discuss findings. An addendum with communication details will be sent when the communication is complete. EXAM: XR ABDOMEN, 1 VIEW CLINICAL INDICATION: SBO TECHNIQUE: Frontal supine view of the abdomen/pelvis. COMPARISON: 05/19/2024. FINDINGS: LOWER THORAX: No acute pathology. GASTROINTESTINAL TRACT: Multiple dilated loops of small bowel consistent with small bowel obstruction that has increased compared with the previous examination. ORGANS: Surgical clips in the right upper quadrant likely from prior cholecystectomy. No organomegaly. No abnormal calcifications. BONES/JOINTS: No acute pathology. SOFT TISSUES: No acute pathology. RAD/Abdomen Single View (Portable) IMPRESSION: Multiple dilated loops of small bowel consistent with small bowel obstruction that has increased compared with the previous examination. Electronically Signed: Jb Denton MD at 6:18 EST ,
[2024-05-20 06:51] LABS: Absolute Lymphocyte Count 1.81 X10^3/uL (0.83-4.51); Absolute Neutrophil Count 6.5 X10^3/uL (2.0-7.7); Basophil# 0.07 X10^3/uL; Basophil% 0.7 % (0-1); Eosinophil# 0.21 X10^3/uL; Eosinophils% 2.1 % (0-5); Hemoglobin 8.7 g/dL (12.0-15.0); Lymphocyte # 1.81 X10^3/ul (0.83-4.51); Lymphocyte % 18.5 % (19-41); Mean Corp Hgb Conc 32.2 g/dL (32-36); Mean Corpuscular Hgb 28.7 pg (27.0-32.0); Mean Corpuscular Volume 89.1 fL (81-99); Mean Platelet Vol. 9.2 fl (6.2-12.0); Monocyte# 0.76 X10^3/uL; Monocyte% 7.8 % (0-10); NRBC Flagged by Analyzer 0 % (0-5); Neutrophil # 6.51 X10^3/uL (2.7-7.7); Neutrophil % 66.7 % (47-70); Platelet Count 503 K/mm3 (150-450); RBC Distribution Width CV 16.3 % (11.6-14.6); RBC Distribution Width SD 53.8 fl (35.1-43.9); Red Blood Count 3.03 M/mm3 (4.2-5.4); White Blood Count 9.8 K/mm3 (4.4-11.0)
[2024-05-20] MEDS: 0.9% Normal Saline (1000mL) 1,000 ML 100 ML IV ×2 (07:06→16:59)
[2024-05-20] MEDS: 0.9% Saline Lock 10 ML Syringe IV ×2 (07:06→10:18)
[2024-05-20 07:27] LABS: ALB/GLOB Ratio 0.6 RATIO (0.9-2.4); AST(SGOT) 14 U/L (15-37); Alanine Aminotransfer ALT/SGPT 21 U/L (13-56); Albumin, Serum 2.2 g/dL (3.2-5.0); Alkaline Phosphatase 106 U/L (45-117); Anion Gap 9 (5-15); BUN 26 mg/dL (7-18); BUN/Creat Ratio 14.1 RATIO (10-20); Calcium,Total 8.7 mg/dL (8.5-10.1); Chloride 97 mmol/L (98-107); Creatinine, Serum 1.84 mg/dL (0.55-1.02); EST Glomerular Filtration Rate 29 mL/min (>60); Est Glom Filt Rate - Afr Amer 35 mL/min (>60); Estimated Creatinine Clearance 25.71 ml/min; Glucose 122 mg/dL (74-106); Magnesium 1.9 mg/dL (1.6-2.6); Potassium 3.1 mmol/L (3.5-5.1); Protein, Total 6.2 g/dL (6.4-8.2); Sodium Level 131 mmol/L (136-145)
--- NOTE | 2024-05-20 09:14 | PN.SURG_ITS ---
Subjective Subjective Patient seen and examined during AM rounds. She was found resting in bed. She denies any nausea and states that she has been passing gas. She states that she was disappointed in the note that she has experienced more bloating and questions why this develops. She denies any abdominal pain. Lastly she confirms that she has had some small liquid bowel movements. Objective Data Objective Data Vital Signs: Vital Signs Temp Pulse Resp BP Pulse Ox O2 Del Method O2 Flow Rate 96.5 F L 70 14 86/54 L 93 Room Air 2 05/20/24 05:00 05/20/24 05:00 05/20/24 05:00 05/20/24 05:00 05/20/24 05:00 05/20/24 06:00 05/18/24 21:09 Oxygen Flow Rate (L/min) 2 Oxygen Delivery Method Room Air Weight: 152 lb 1.903 oz Body Mass Index (BMI) 30.7 Intake & Output: Intake and Output for Last 24 Hours 05/18/24 05/19/24 05/20/24 23:59 23:59 23:59 Intake Total 660 / 660 1904 / 1904 Output Total 1150 / 1150 0 / 0 Balance -490 / -490 1904 / 1904 Medical Nutrition Assessment Dietitian: Malnutrition Criteria Met Start: 05/17/24 15:05 Freq: Status: Active Protocol: Document 05/17/24 15:06 SB (Rec: 05/17/24 15:06 SB [id number]) Nutrition Malnutrition Evidence of Malnutrition Exists Yes Malnutrition (severe): Acute Illness/Injury Evidenced By Suboptimal Energy Intake ( Severe),Weight Loss (Severe) Clinical Problem Acute Disease or Injury Related Malnutrition Etiology severe related to inadequate oral intake and altered GI function Signs/Symptoms as evidenced by PO meeting <75 % of 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 5 months; extended NPO x 4 days. Status Active Problem Altered Nutrient-Related Laboratory Values Etiology related to endocrine dysfunction/diabetes Signs/Symptoms as evidneced by A1C 8.8% Status Active Problem Recommendation Dietitian Recommendations/Changes If able to take PO recommend advanced diet as tolerated to 1600 calorie controlled/ consistent carbohydrate diet. If PO reminded NPO, recommend nutrition support. Consult RD for initiated and management of TPN as needed. Will add 1 scoop of beneprotein TID with meals. Will monitor weight, as available. Reviewed and approved by Karen Tate, MS, RDN, LD. Lab / Micro Data 05/20/24 06:20 05/20/24 06:20 Labs: Laboratory Results - last 24 hr 05/19/24 06:30: Magnesium 1.3 L 05/20/24 06:20: WBC 9.8, RBC 3.03 L, Hgb 8.7 L, Hct 27.0 L, MCV 89.1, MCH 28.7, MCHC 32.2, RDW Std Deviation 53.8 H, RDW Coeff of Yaw 16.3 H, Plt Count 503 H, MPV 9.2, Immature Gran % (Auto) 4.200 H, Neut % (Auto) 66.7, Lymph % (Auto) 18.5 L, [place] % (Auto) 7.8, Eos % (Auto) 2.1, Baso % (Auto) 0.7, Absolute Neuts (auto) 6.5, Absolute Lymphs (auto) 1.81, Nucleated RBC % 0, Sodium 131 L, Potassium 3.1 L, Chloride 97 L, Carbon Dioxide 25.0, Anion Gap 9, BUN 26 H, Creatinine 1.84 H, Estim Creat Clear Calc 25.71, Est GFR (MDRD) Af Amer 35 L, Est GFR (MDRD) Non-Af 29 L, BUN/Creatinine Ratio 14.1, Glucose 122 H, Calcium 8.7, Magnesium 1.9, Total Bilirubin 0.50, AST 14 L, ALT 21, Alkaline Phosphatase 106, Total Protein 6.2 L, Albumin 2.2 L, Globulin 4.0, Albumin/Globulin Ratio 0.6 L Micro: Microbiology 05/16/24 19:35 Stool Enteric Bacteriology - Final 05/16/24 19:35 Stool Stool Lactoferrin - Final Radiography Diagnostic Testing: Radiology Impression KUB X-Ray 05/20/24 05:55 IMPRESSION: Multiple dilated loops of small bowel consistent with small bowel obstruction that has increased compared with the previous examination. Electronically Signed: Jb Denton MD at 6:18 EST , ADDENDUM: 05/20/24 0638 IMPRESSION: Multiple dilated loops of small bowel consistent with small bowel obstruction that has increased compared with the previous examination. N.B. : The above Results were Read Back by Jb Denton MD to Jb Jackson MD, and understanding confirmed on 05/20/2024 06:31:51 (ET). Electronically Signed: Jb Denton MD at 6:18 EST , Physical Exam Const oriented x3 and no apparent distress Resp normal respiratory effort GI GI Narrative: Moderately distended and tympanitic, soft, nontender to palpation x 4 quadrants Assessment & Plan Assessment/Plan (1) Intractable nausea and vomiting: PLAN: Patient is a 68-year-old female that was admitted with intractable nausea and vomiting and underwent NG tube placement and a small bowel follow-through 4 days ago. At the completion of the study no clear area of obstruction was noted, however, I noted the persistence of centrally?located dilated loops of small bowel and requested that nursing return the patient's NG tube to suction as I was concerned for an ongoing adynamic ileus. The NG tube was discontinued the following day and patient was advanced on a clear liquid diet. She has remained at that diet threshold on the account of persistent abdominal distention, however, otherwise she reports that she is passing flatus and experiencing bowel movements. Unfortunately this morning radiology called with a critical read to state they felt like patient exhibited evidence of a small bowel obstruction. When asked to review this in light of her recent small bowel follow-through they did concede that this could simply represent capacious small bowel consistent with an ileus. With patient still denying any nausea or abdominal discomfort and KUB still showing air within the colon I believe this represents ongoing ileus versus partial small bowel obstruction. I would have considered proceeding for diagnostic laparoscopy but patient has been continued on Brilinta and Eliquis. This was noted previously but given her progress and the results of her radiologic evaluation it was not held. Hospitalist service has been contacted today about this issue and we will plan to hold these medications going forward. For now patient was made n.p.o. and return to maintenance IV fluids. I also replaced her potassium this morning. Will follow closely but if she develops nausea would recommend replacement of her NG tube. I did discuss with patient and hospitalist that if she needs operative intervention sooner than 5 days she may require transfer to a facility with complete blood bank resources as her Brilinta, in particular, places her at a significant risk for perioperative bleeding. For the interim I have ordered scheduled suppositories and asked patient to be out of bed in a chair. We need to work to limit any medicinal sources for intestinal slowing. Jb Jackson MD General Surgery Endocrine Surgery Pager: [facility] [address] [place] [address], [facility], [address] [place] [address] Office: [phone] (2) Paralytic ileus of small intestine: Charges/Coding Visit Charges Inpatient E&M: 95286 Subs Hosp L2
[2024-05-20] MEDS: Potassium Chloride 10mEq/100mL 10 MEQ/100 ML IV.SOLN. 100 MEQ IV BOLUS ×4 (10:17→14:20)
[2024-05-20] MEDS: Bisacodyl 10 MG Suppository RC (10:18)
--- NOTE | 2024-05-20 14:27 | PCM.PN.HOSP ---
Subjective Subjective Has some abdominal distention but also flatus and BMs unclear if she has an SBO versus significant ileus Objective Data Objective Data Vital Signs: Vital Signs Temp Pulse Resp BP Pulse Ox O2 Del Method O2 Flow Rate 97.2 F L 86 16 101/72 95 Room Air 2 05/20/24 13:11 05/20/24 13:11 05/20/24 13:11 05/20/24 13:11 05/20/24 13:11 05/20/24 13:11 05/18/24 21:09 Oxygen Flow Rate (L/min) 2 Oxygen Delivery Method Room Air Weight: 152 lb 1.903 oz Body Mass Index (BMI) 30.7 Intake & Output: Intake and Output for Last 24 Hours 05/19/24 05/20/24 05/21/24 03:59 03:59 03:59 Intake Total 660 / 660 1904 / 1904 300 / 300 Output Total 900 / 900 0 / 0 Balance -240 / -240 1904 / 1904 300 / 300 Medical Nutrition Assessment Dietitian: Malnutrition Criteria Met Start: 05/17/24 15:05 Freq: Status: Active Protocol: Document 05/17/24 15:06 SB (Rec: 05/17/24 15:06 SB [id number]) Nutrition Malnutrition Evidence of Malnutrition Exists Yes Malnutrition (severe): Acute Illness/Injury Evidenced By Suboptimal Energy Intake ( Severe),Weight Loss (Severe) Clinical Problem Acute Disease or Injury Related Malnutrition Etiology severe related to inadequate oral intake and altered GI function Signs/Symptoms as evidenced by PO meeting <75 % of 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 5 months; extended NPO x 4 days. Status Active Problem Altered Nutrient-Related Laboratory Values Etiology related to endocrine dysfunction/diabetes Signs/Symptoms as evidneced by A1C 8.8% Status Active Problem Recommendation Dietitian Recommendations/Changes If able to take PO recommend advanced diet as tolerated to 1600 calorie controlled/ consistent carbohydrate diet. If PO reminded NPO, recommend nutrition support. Consult RD for initiated and management of TPN as needed. Will add 1 scoop of beneprotein TID with meals. Will monitor weight, as available. Reviewed and approved by Karen Tate, MS, RDN, LD. Lab / Micro Data 05/20/24 06:20 05/20/24 06:20 Labs: Laboratory Results - last 24 hr 12/30/24 06:20: WBC 9.8, RBC 3.03 L, Hgb 8.7 L, Hct 27.0 L, MCV 89.1, MCH 28.7, MCHC 32.2, RDW Std Deviation 53.8 H, RDW Coeff of Yaw 16.3 H, Plt Count 503 H, MPV 9.2, Immature Gran % (Auto) 4.200 H, Neut % (Auto) 66.7, Lymph % (Auto) 18.5 L, [place] % (Auto) 7.8, Eos % (Auto) 2.1, Baso % (Auto) 0.7, Absolute Neuts (auto) 6.5, Absolute Lymphs (auto) 1.81, Nucleated RBC % 0, Sodium 131 L, Potassium 3.1 L, Chloride 97 L, Carbon Dioxide 25.0, Anion Gap 9, BUN 26 H, Creatinine 1.84 H, Estim Creat Clear Calc 25.71, Est GFR (MDRD) Af Amer 35 L, Est GFR (MDRD) Non-Af 29 L, BUN/Creatinine Ratio 14.1, Glucose 122 H, Calcium 8.7, Magnesium 1.9, Total Bilirubin 0.50, AST 14 L, ALT 21, Alkaline Phosphatase 106, Total Protein 6.2 L, Albumin 2.2 L, Globulin 4.0, Albumin/Globulin Ratio 0.6 L Micro: Microbiology 05/16/24 19:35 Stool Enteric Bacteriology - Final 05/16/24 19:35 Stool Stool Lactoferrin - Final Radiography Diagnostic Testing: Radiology Impression KUB X-Ray 05/20/24 05:55 IMPRESSION: Multiple dilated loops of small bowel consistent with small bowel obstruction that has increased compared with the previous examination. Electronically Signed: Jb Denton MD at 6:18 EST , ADDENDUM: 05/20/24 0633 IMPRESSION: Multiple dilated loops of small bowel consistent with small bowel obstruction that has increased compared with the previous examination. N.B. : The above Results were Read Back by Jb Denton MD to Jb Jackson MD, and understanding confirmed on 05/20/2024 06:31:51 (ET). Electronically Signed: Jb Denton MD at 6:18 EST , Physical Exam Narrative General: Alert, Oriented x3, Cooperative, No apparent distress HEENT: Atraumatic, PERRLA, EOMI, Normocephalic Oral: Moist Mucosa Neck: Supple, No JVD Lungs: Diminished, Normal air movement, No rhonchi, No wheeze, No rales Cardiovascular: Regular rate, Regular Rhythm, Normal S1, Normal S2, No murmurs Abdomen: Soft, Non Tender, slightly distended, No Hepato-splenomegaly Extremities: No edema, Capillary Refill Less than 3 Seconds Skin: No rashes, No breakdown Musculoskeletal: No Tenderness to Palpation of Joints or Extremities Neurological: No focal neurological deficits, Motor Exam 5/5 strength throughout, Sensory exam intact to light touch and pain Psych/Mental Status: Normal Affect, Appropriate Assessment & Plan Assessment/Plan (1) Intractable nausea and vomiting: PLAN: Plan #1. Acute Abdominal pain with associated nausea, emesis, diarrhea with family members with similar symptoms with questionable adynamic ileus versus developing a partial small bowel obstruction with associated lactic acidosis, 05/15/2024 high suspicion for small bowel obstruction: ED evaluation with CT abdomen and pelvis with fluid-filled distended small bowel segments with no transition point with questionable adynamic ileus versus developing or partial small bowel obstruction, normal appearance large bowel, appendicolith in the tip the appendix however no evidence of appendicitis, evidence status post cholecystectomy without ductal dilatation, admission CBC with WBC 12.1, hemoglobin 12.3, platelets 650 with left shift, admission CMP with sodium 124, potassium 5.4 however moderately hemolyzed thus falsely elevated, chloride 94, At 18, BUN/creatinine 45/2.37, GFR 22, glucose 339, lactic acid 2.4, hepatic profile with alk phos 146, lipase 16, urinalysis with no obvious evidence of UTI. Admitted to telemetry, continued hydration, lactic acid trended down to 1.7. 05/14/24 surgery consultation requested w/ favored ileus over SBO with recommendation for continued n.p.o. status with offered NG tube given it may improve her symptoms but she declined following discussion with surgery, defer any concept of small bowel follow-through until nausea improves, 05/14/24 AM KUB with mildly dilated small bowel loops again possible indicative of ileus or partial obstruction-->05/15/24 KUB worsened appearance with increased small bowel dilatation with concern for small bowel obstruction. 05/15/24 NG tube placed to low intermittent suction. 05/16/24 KUB with decreased small bowel dilatation compared to previous. 05/16/2024 given KUB appearance at onset of flatus surgery initiated SBFT 24 hours protocol. 05/17/24 small bowel follow-through resulted negative however surgery concerned given increased output via NG but following further investigation patient had significant ice chip intake likely increasing falsely the amount. PT/OT/case management following with encouragement of up and active to assist also with charley horses but prevent worsening we can status. Stool studies requested with positive stool lactoferrin WBCs, negative enteric pathogens. 05/18/2024 KUB with interval decrease in small bowel dilatation with oral contrast seen in the ascending colon. 05/18/2024 NG tube discontinued. 05/18/2024 evening patient eventually transition from sips and chips to clears. 05/19/24 KUB with mild gaseous distention of loops of bowel similar to prior exam, minimal oral contrast partially visualized within the colon relatively decompressed at best visualized with no overt bowel obstruction. Per discussion with surgery they are very slowly going to advance her and will defer this to their discretion. 05/20/2024: Initially small bowel follow-through was negative for an SBO but then KUB this morning shows increased dilation of bowel loops. Will hold Eliquis and Brilinta continue with clear liquid diet for possible surgery in a day or 2 versus transfer. Brilinta is half-life is 7 hours and shows significant decrease in function after about 72 hours, last dose was 05/19/2020 4 in the evening #2. 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 Encouraged dosing this morning and will transition to at least a moderate dose insulin sliding scale. Continued on oral gabapentin regimen. #3. Acute hyponatremia, hypochloremia, suspected hypovolemic etiology given acute presentation #1: Admission sodium 124, chloride 94, hydrated with IVFs, repeat 05/17/2024 CMP with sodium 135. 05/19/24 Na 130, Chl 95 with concern for lessened intake, administered IVF bolus and will monitor intake. If not notable then low threshold to restart MIVFs. Repeat CMP in AM. #4. Acute kidney injury on CKD stage III unclear subtype per GFR trend: Secondary to acute presentation as noted, poor intake. Admission BUN/Cr 45/2.37, GFR 22, prior baseline creatinine noted to be 1.1-1.5 although has vacillated. Hydrated, hold nephrotoxic medications. Urinalysis not marked appearing, no evidence of obstructive process on CT abdomen and pelvis. 05/14/2024 BUN/creatinine 29/2.05, GFR 26-> 05/19/2024 BUN/creatinine 21/1.09, GFR 53. Will continue to trend. As noted above 05/19/2020 for planned IV fluid bolus and continued close monitoring of intake. Given patient resolution of acute kidney injury patient's losartan was resumed as noted. #5. Hypokalemia, hypomagnesemia: Admission K+ 3.2, magnesium 1.3, supplementation given, repeat levels in AM. #6. PAF: We will continue patient home Coreg with hold parameters and home Eliquis regimen. #7. CAD: s/p PCI, will continue patient home Eliquis, Brilinta, statin in addition to Coreg and lisinopril with hold parameters as needed. #8. Chronic normocytic anemia: Admission hemoglobin 12.3, MCV 91.3 however falsely decreased given dehydrated status, baseline hemoglobin previous to this 9-10, 05/19/2024 hemoglobin 10.3, continue to trend. #9. Anxiety and Depression/Bipolar disorder: Continue home Depakote regimen. #10. Hypothyroidism: Continue home levothyroxine regimen. #11. Hypertension: Continue patient home Coreg, isosorbide, losartan home regimen with specific hold parameters in place, PRN hydralazine. #12. Hyperlipidemia: Continue home statin. #13. Obesity: Weight loss and lifestyle changes encouraged. #14. Tobacco Abuse: Encouraged cessation, inpatient consultation per RT, NR if desired. #15. GERD: 05/19/24 increased BID PPI given dyspepsia overnight. DVT: SCDs Charges/Coding Visit Charges Inpatient E&M: 57882 Subs Hosp L2
--- NOTE | 2024-05-20 16:26 | EKG12_ITS ---
Test Reason : Blood Pressure : */* mmHG Vent. Rate : 115 BPM Atrial Rate : 115 BPM P-R Int : 160 ms QRS Dur : 100 ms QT Int : 378 ms P-R-T Axes : * -55 35 degrees QTcB Int : 522 ms Sinus tachycardia Left axis deviation Incomplete right bundle branch block Prolonged QT Abnormal ECG When compared with ECG of 18-May-2024 19:29, Premature ventricular complexes are no longer Present Confirmed by LANNY LOPEZ, PANKAJ ([id number]), editorial clerk SANDY DORADO ([id number]) on 05/21/2024 9:15:42 AM Referred By: Confirmed By: PANKAJ CA MD
[2024-05-20] MEDS: Pantoprazole Sodium 40 MG Tablet PO (21:01)
[2024-05-20] MEDS: Atorvastatin Calcium 80 MG Tablet PO (21:01)
[2024-05-20] MEDS: Divalproex Sodium 125 MG SPRINKLE PO (21:02)
[2024-05-20] MEDS: Gabapentin 600 MG Tablet PO (21:02)
[2024-05-20] MEDS: Allopurinol 100 MG Tablet PO (21:02)
[2024-05-20] MEDS: Amitriptyline 25 MG Tablet 50 MG PO (21:02)
--- NOTE | 2024-05-20 22:39 | PCM.HOSP.N ---
Hospitalist Note I was called due to blood sugar being 101 at nighttime check with questioning whether or not we should give 50 units. She is currently ordered 50 units twice daily. It looks like this was reinitiated on 05/19/2024 and she had not gotten any insulin the night before due to patient refusal. Given her low fasting blood sugar right now I will decrease the dose from 50 to 15 units as her renal function is also up and she may not clear insulin the way she had previously due to her renal dysfunction. Continue to monitor blood sugars.
[2024-05-21 02:16] VITALS: BP 106/65; PULSE 87; RESP 16; TEMP 36.6; O2SAT 98
[2024-05-21] MEDS: 0.9% Normal Saline (1000mL) 1,000 ML 100 ML IV ×2 (02:41→13:00)
[2024-05-21 04:01] VITALS: BMI 30.4
--- NOTE | 2024-05-21 05:40 | RAD_ITS ---
EXAM: XR ABDOMEN, 1 VIEW CLINICAL INDICATION: f/u dilated small bowel ileus vs pSBO TECHNIQUE: Frontal supine view of the abdomen/pelvis. COMPARISON: XR Abdomen dated 05/20/2024 FINDINGS: GASTROINTESTINAL TRACT: Improving small bowel distention suggestive of resolving small bowel obstruction. ORGANS: Cholecystectomy clips are in place. BONES/JOINTS: No acute abnormality. RAD/Abdomen Single View (Portable) IMPRESSION: Improving small bowel distention suggestive of resolving small bowel obstruction. Electronically Signed: Calvin Leonard MD at 7:12 EST ,
[2024-05-21 07:39] VITALS: O2SAT 96
[2024-05-21 08:17] VITALS: BP 121/49; PULSE 75; RESP 16; TEMP 36.1; O2SAT 96
[2024-05-21 09:08] LABS: Absolute Neutrophil Count 4.4 X10^3/uL (2.0-7.7); Basophil# 0.06 X10^3/uL; Basophil% 0.9 % (0-1); Eosinophil# 0.14 X10^3/uL; Eosinophils% 2.1 % (0-5); Hematocrit 23.8 % (37-47); Hemoglobin 7.5 g/dL (12.0-15.0); Lymphocyte % 20.8 % (19-41); Mean Corp Hgb Conc 31.5 g/dL (32-36); Mean Corpuscular Volume 91.9 fL (81-99); Mean Platelet Vol. 9.1 fl (6.2-12.0); Monocyte# 0.41 X10^3/uL; Monocyte% 6.1 % (0-10); NRBC Flagged by Analyzer 0 % (0-5); Neutrophil # 4.39 X10^3/uL (2.7-7.7); Neutrophil % 65.3 % (47-70); Platelet Count 376 K/mm3 (150-450); RBC Distribution Width CV 16.4 % (11.6-14.6); RBC Distribution Width SD 55.5 fl (35.1-43.9); Red Blood Count 2.59 M/mm3 (4.2-5.4); White Blood Count 6.7 K/mm3 (4.4-11.0)
[2024-05-21 09:30] LABS: ALB/GLOB Ratio 0.6 RATIO (0.9-2.4); AST(SGOT) 21 U/L (15-37); Alanine Aminotransfer ALT/SGPT 19 U/L (13-56); Albumin, Serum 2.1 g/dL (3.2-5.0); Alkaline Phosphatase 98 U/L (45-117); Anion Gap 6 (5-15); BUN 17 mg/dL (7-18); Calcium,Total 8.1 mg/dL (8.5-10.1); Chloride 110 mmol/L (98-107); EST Glomerular Filtration Rate 59 mL/min (>60); Est Glom Filt Rate - Afr Amer 71 mL/min (>60); Estimated Creatinine Clearance 47.11 ml/min; Globulin 3.7 g/dL (2.2-4.2); Glucose 86 mg/dL (74-106); Potassium 3.9 mmol/L (3.5-5.1); Protein, Total 5.8 g/dL (6.4-8.2); Sodium Level 139 mmol/L (136-145)
--- NOTE | 2024-05-21 09:44 | PCM.PN.SRG ---
Subjective Subjective Patient seen and examined during AM rounds. I initially missed vacation because she was in the bathroom and then up ambulating with physical therapy. She reports that she is feeling better today. She had several bowel movements yesterday and reports that she is starving when asked if she has an appetite. Objective Data Objective Data Vital Signs: Vital Signs Temp Pulse Resp BP Pulse Ox O2 Del Method O2 Flow Rate 97.8 F 87 16 106/65 98 Room Air 2 05/21/24 02:16 05/21/24 02:16 05/21/24 02:16 05/21/24 02:16 05/21/24 02:16 05/21/24 08:55 05/18/24 21:09 Oxygen Flow Rate (L/min) 2 Oxygen Delivery Method Room Air Weight: 150 lb 12.739 oz Body Mass Index (BMI) 30.4 Intake & Output: Intake and Output for Last 24 Hours 05/19/24 05/20/24 05/21/24 23:59 23:59 23:59 Intake Total 1904 / 1904 1388.33 / 1388.33 970 / 970 Output Total 0 / 0 Balance 1904 / 1904 1388.33 / 1388.33 970 / 970 Medical Nutrition Assessment Dietitian: Malnutrition Criteria Met Start: 05/17/24 15:05 Freq: Status: Active Protocol: Document 05/17/24 15:06 SB (Rec: 05/17/24 15:06 SB [id number]) Nutrition Malnutrition Evidence of Malnutrition Exists Yes Malnutrition (severe): Acute Illness/Injury Evidenced By Suboptimal Energy Intake ( Severe),Weight Loss (Severe) Clinical Problem Acute Disease or Injury Related Malnutrition Etiology severe related to inadequate oral intake and altered GI function Signs/Symptoms as evidenced by PO meeting <75 % of estimated nutrition needs x 4-5 months [employer]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 5 months; extended NPO x 4 days. Status Active Problem Altered Nutrient-Related Laboratory Values Etiology related to endocrine dysfunction/diabetes Signs/Symptoms as evidneced by A1C 8.8% Status Active Problem Recommendation Dietitian Recommendations/Changes If able to take PO recommend advanced diet as tolerated to 1600 calorie controlled/ consistent carbohydrate diet. If PO reminded NPO, recommend nutrition support. Consult RD for initiated and management of TPN as needed. Will add 1 scoop of beneprotein TID with meals. Will monitor weight, as available. Reviewed and approved by Karen Tate, MS, RDN, LD. Lab / Micro Data 05/21/24 09:00 05/21/24 09:00 Labs: Laboratory Results - last 24 hr 05/21/24 09:00: WBC 6.7, RBC 2.59 L, Hgb 7.5 L, Hct 23.8 L, MCV 91.9, MCH 29.0, MCHC 31.5 L, RDW Std Deviation 55.5 H, RDW Coeff of Yaw 16.4 H, Plt Count 376, MPV 9.1, Immature Gran % (Auto) 4.800 H, Neut % (Auto) 65.3, Lymph % (Auto) 20.8, [place] % (Auto) 6.1, Eos % (Auto) 2.1, Baso % (Auto) 0.9, Absolute Neuts (auto) 4.4, Absolute Lymphs (auto) 1.40, Nucleated RBC % 0, Sodium 139, Potassium 3.9, Chloride 110 H, Carbon Dioxide 23.0, Anion Gap 6, BUN 17, Creatinine 1.00, Estim Creat Clear Calc 47.11, Est GFR (MDRD) Af Amer 71, Est GFR (MDRD) Non-Af 59 L, BUN/Creatinine Ratio 17.0, Glucose 86, Calcium 8.1 L, Total Bilirubin 0.20, AST 21, ALT 19, Alkaline Phosphatase 98, Total Protein 5.8 L, Albumin 2.1 L, Globulin 3.7, Albumin/Globulin Ratio 0.6 L Micro: Microbiology 05/16/24 19:35 Stool Ova and Parasites - Final 05/16/24 19:35 Stool Enteric Bacteriology - Final 05/16/24 19:35 Stool Stool Lactoferrin - Final Radiography Diagnostic Testing: Radiology Impression KUB X-Ray 05/21/24 05:40 IMPRESSION: Improving small bowel distention suggestive of resolving small bowel obstruction. Electronically Signed: Calvin Leonard MD at 7:12 EST , Physical Exam Const oriented x3 and no apparent distress Resp normal respiratory effort GI GI Narrative: Decreased abdominal distention (but a mild degree persist), soft, nontender to palpation x 4 quadrants Assessment & Plan Assessment/Plan (1) Intractable nausea and vomiting: PLAN: Patient is a 68-year-old female that was admitted with intractable nausea and vomiting and underwent NG tube placement and a small bowel follow-through 4 days ago. At the completion of the study no clear area of obstruction was noted, however, I noted the persistence of centrally?located dilated loops of small bowel and requested that nursing return the patient's NG tube to suction as I was concerned for an ongoing adynamic ileus. The NG tube was discontinued the following day and patient was advanced on a clear liquid diet. She has remained at that diet threshold on the account of persistent abdominal distention, however, otherwise she reports that she is passing flatus and experiencing bowel movements. Patient looks significantly improved this morning was reports of multiple bowel movements yesterday and, objectively, on her KUB significant decrease in the small bowel distention. Further, she is reporting strong appetite this morning. With these changes I believe this represents further evidence of an ileus rather than a small bowel obstruction. Will plan to advance her diet back to a clear liquid diet with protein supplementation today. Have emphasized the need to continue frequent ambulation and minimize narcotics. Fortunately, patient's electrolytes look repleted today after replacements were given yesterday. Still recommend hold on Brilinta and Eliquis until we are more reassured that patient's bowel function is fully intact. Jb Jackson MD General Surgery Endocrine Surgery Pager: [facility] [address] [place] [address], [facility], [address] [place] [id number] Office: [phone] (2) Paralytic ileus of small intestine: Charges/Coding Visit Charges Inpatient E&M: 09679 Subs Hosp L2
--- NOTE | 2024-05-21 10:05 | PN.HOSP_ITS ---
Subjective Subjective Doing well, feels a bit better. Has been passing gas and having small bowel movements Objective Data Objective Data Vital Signs: Vital Signs Temp Pulse Resp BP Pulse Ox O2 Del Method O2 Flow Rate 97.8 F 87 16 106/65 98 Room Air 2 05/21/24 02:16 05/21/24 02:16 05/21/24 02:16 05/21/24 02:16 05/21/24 02:16 05/21/24 08:55 05/18/24 21:09 Oxygen Flow Rate (L/min) 2 Oxygen Delivery Method Room Air Weight: 150 lb 12.739 oz Body Mass Index (BMI) 30.4 Intake & Output: Intake and Output for Last 24 Hours 05/20/24 05/21/24 05/22/24 03:59 03:59 03:59 Intake Total 1904 / 1904 2358.33 / 2358.33 Output Total 0 / 0 Balance 1904 / 1904 2358.33 / 2358.33 Medical Nutrition Assessment Dietitian: Malnutrition Criteria Met Start: 05/17/24 15:05 Freq: Status: Active Protocol: Document 05/17/24 15:06 SB (Rec: 05/17/24 15:06 SB [id number]) Nutrition Malnutrition Evidence of Malnutrition Exists Yes Malnutrition (severe): Acute Illness/Injury Evidenced By Suboptimal Energy Intake ( Severe),Weight Loss (Severe) Clinical Problem Acute Disease or Injury Related Malnutrition Etiology severe related to inadequate oral intake and altered GI function Signs/Symptoms as evidenced by PO meeting <75 % of estimated nutrition needs x 4-5 months [employer]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 5 months; extended NPO x 4 days. Status Active Problem Altered Nutrient-Related Laboratory Values Etiology related to endocrine dysfunction/diabetes Signs/Symptoms as evidneced by A1C 8.8% Status Active Problem Recommendation Dietitian Recommendations/Changes If able to take PO recommend advanced diet as tolerated to 1600 calorie controlled/ consistent carbohydrate diet. If PO reminded NPO, recommend nutrition support. Consult RD for initiated and management of TPN as needed. Will add 1 scoop of beneprotein TID with meals. Will monitor weight, as available. Reviewed and approved by Karen Tate, MS, RDN, LD. Lab / Micro Data 05/21/24 09:00 05/21/24 09:00 Labs: Laboratory Results - last 24 hr 05/21/24 09:00: WBC 6.7, RBC 2.59 L, Hgb 7.5 L, Hct 23.8 L, MCV 91.9, MCH 29.0, MCHC 31.5 L, RDW Std Deviation 55.5 H, RDW Coeff of Yaw 16.4 H, Plt Count 376, MPV 9.1, Immature Gran % (Auto) 4.800 H, Neut % (Auto) 65.3, Lymph % (Auto) 20.8, [place] % (Auto) 6.1, Eos % (Auto) 2.1, Baso % (Auto) 0.9, Absolute Neuts (auto) 4.4, Absolute Lymphs (auto) 1.40, Nucleated RBC % 0, Sodium 139, Potassium 3.9, Chloride 110 H, Carbon Dioxide 23.0, Anion Gap 6, BUN 17, Creatinine 1.00, Estim Creat Clear Calc 47.11, Est GFR (MDRD) Af Amer 71, Est GFR (MDRD) Non-Af 59 L, BUN/Creatinine Ratio 17.0, Glucose 86, Calcium 8.1 L, Total Bilirubin 0.20, AST 21, ALT 19, Alkaline Phosphatase 98, Total Protein 5.8 L, Albumin 2.1 L, Globulin 3.7, Albumin/Globulin Ratio 0.6 L Micro: Microbiology 05/16/24 19:35 Stool Ova and Parasites - Final 05/16/24 19:35 Stool Enteric Bacteriology - Final 05/16/24 19:35 Stool Stool Lactoferrin - Final Radiography Diagnostic Testing: Radiology Impression KUB X-Ray 05/21/24 05:40 IMPRESSION: Improving small bowel distention suggestive of resolving small bowel obstruction. Electronically Signed: Calvin Leonard MD at 7:12 EST , Physical Exam Narrative General: Alert, Oriented x3, Cooperative, No apparent distress HEENT: Atraumatic, PERRLA, EOMI, Normocephalic Oral: Moist Mucosa Neck: Supple, No JVD Lungs: Diminished, Normal air movement, No rhonchi, No wheeze, No rales Cardiovascular: Regular rate, Regular Rhythm, Normal S1, Normal S2, No murmurs Abdomen: Soft, Non Tender, slightly distended, No Hepato-splenomegaly Extremities: No edema, Capillary Refill Less than 3 Seconds Skin: No rashes, No breakdown Musculoskeletal: No Tenderness to Palpation of Joints or Extremities Neurological: No focal neurological deficits, Motor Exam 5/5 strength throughout, Sensory exam intact to light touch and pain Psych/Mental Status: Normal Affect, Appropriate Assessment & Plan Assessment/Plan (1) Intractable nausea and vomiting: PLAN: Plan #1. Acute Abdominal pain with associated nausea, emesis, diarrhea with family members with similar symptoms with questionable adynamic ileus versus developing a partial small bowel obstruction with associated lactic acidosis, 05/15/2024 high suspicion for small bowel obstruction: ED evaluation with CT abdomen and pelvis with fluid-filled distended small bowel segments with no transition point with questionable adynamic ileus versus developing or partial small bowel obstruction, normal appearance large bowel, appendicolith in the tip the appendix however no evidence of appendicitis, evidence status post cholecystectomy without ductal dilatation, admission CBC with WBC 12.1, hemoglobin 12.3, platelets 650 with left shift, admission CMP with sodium 124, potassium 5.4 however moderately hemolyzed thus falsely elevated, chloride 94, At 18, BUN/creatinine 45/2.37, GFR 22, glucose 339, lactic acid 2.4, hepatic profile with alk phos 146, lipase 16, urinalysis with no obvious evidence of UTI. Admitted to telemetry, continued hydration, lactic acid trended down to 1.7. 05/14/24 surgery consultation requested w/ favored ileus over SBO with recommendation for continued n.p.o. status with offered NG tube given it may improve her symptoms but she declined following discussion with surgery, defer any concept of small bowel follow-through until nausea improves, 05/14/24 AM KUB with mildly dilated small bowel loops again possible indicative of ileus or partial obstruction-->05/15/24 KUB worsened appearance with increased small bowel dilatation with concern for small bowel obstruction. 05/15/24 NG tube placed to low intermittent suction. 05/16/24 KUB with decreased small bowel dilatation compared to previous. 05/16/2024 given KUB appearance at onset of flatus surgery initiated SBFT 24 hours protocol. 05/17/24 small bowel follow- through resulted negative however surgery concerned given increased output via NG but following further investigation patient had significant ice chip intake likely increasing falsely the amount. PT/OT/case management following with encouragement of up and active to assist also with charley horses but prevent worsening we can status. Stool studies requested with positive stool lactoferrin WBCs, negative enteric pathogens. 05/18/2024 KUB with interval decrease in small bowel dilatation with oral contrast seen in the ascending colon. 05/18/2024 NG tube discontinued. 05/18/2024 evening patient eventually transition from sips and chips to clears. 05/19/24 KUB with mild gaseous distention of loops of bowel similar to prior exam, minimal oral contrast partially visualized within the colon relatively decompressed at best visualized with no overt bowel obstruction. Per discussion with surgery they are very slowly going to advance her and will defer this to their discretion. 05/20/2024: Initially small bowel follow-through was negative for an SBO but then KUB this morning shows increased dilation of bowel loops. Will hold Eliquis and Brilinta continue with clear liquid diet for possible surgery in a day or 2 versus transfer. Brilinta is half-life is 7 hours and shows significant decrease in function after about 72 hours, last dose was 05/19/2020 4 in the evening 05/21/2024: Repeat KUB today demonstrates improvement in her small bowel dilatation continue with clears. #2. 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 Encouraged dosing this morning and will transition to at least a moderate dose insulin sliding scale. Continued on oral gabapentin regimen. #3. Acute hyponatremia, hypochloremia, suspected hypovolemic etiology given acute presentation #1: Admission sodium 124, chloride 94, hydrated with IVFs, repeat 05/17/2024 CMP with sodium 135. 05/19/24 Na 130, Chl 95 with concern for lessened intake, administered IVF bolus and will monitor intake. If not notable then low threshold to restart MIVFs. Repeat CMP in AM. #4. Acute kidney injury on CKD stage III unclear subtype per GFR trend: Secondary to acute presentation as noted, poor intake. Admission BUN/Cr 45/2.37, GFR 22, prior baseline creatinine noted to be 1.1-1.5 although has vacillated. Hydrated, hold nephrotoxic medications. Urinalysis not marked appearing, no evidence of obstructive process on CT abdomen and pelvis. 05/14/2024 BUN/creatinine 29/2.05, GFR 26-> 05/19/2024 BUN/creatinine 21/1.09, GFR 53. Will continue to trend. As noted above 05/19/2020 for planned IV fluid bolus and continued close monitoring of intake. Given patient resolution of acute kidney injury patient's losartan was resumed as noted. #5. Hypokalemia, hypomagnesemia: Admission K+ 3.2, magnesium 1.3, supplementation given, repeat levels in AM. #6. PAF: We will continue patient home Coreg with hold parameters and home Eliquis regimen. #7. CAD: s/p PCI, will continue patient home Eliquis, Brilinta, statin in addition to Coreg and lisinopril with hold parameters as needed. #8. Chronic normocytic anemia: Admission hemoglobin 12.3, MCV 91.3 however falsely decreased given dehydrated status, baseline hemoglobin previous to this 9-10, 05/19/2024 hemoglobin 10.3, continue to trend. 05/21/2024, continued downtrend in her hemoglobin we will recheck this afternoon, will check a fecal occult as well as iron studies #9. Anxiety and Depression/Bipolar disorder: Continue home Depakote regimen. #10. Hypothyroidism: Continue home levothyroxine regimen. #11. Hypertension: Continue patient home Coreg, isosorbide, losartan home regimen with specific hold parameters in place, PRN hydralazine. #12. Hyperlipidemia: Continue home statin. #13. Obesity: Weight loss and lifestyle changes encouraged. #14. Tobacco Abuse: Encouraged cessation, inpatient consultation per RT, NR if desired. #15. GERD: 05/19/24 increased BID PPI given dyspepsia overnight. DVT: SCDs Charges/Coding Visit Charges Inpatient E&M: 20361 Subs Hosp L2
[2024-05-21] MEDS: Colestipol 1 GM TABLET PO (10:14)
[2024-05-21] MEDS: Losartan Potassium 50 MG Tablet PO (10:14)
[2024-05-21] MEDS: Divalproex Sodium 125 MG SPRINKLE PO ×2 (10:15→21:45)
[2024-05-21] MEDS: Bisacodyl 10 MG Suppository RC (10:15)
[2024-05-21] MEDS: Carvedilol 6.25 MG Tablet PO ×2 (10:15→17:22)
[2024-05-21] MEDS: Pantoprazole Sodium 40 MG Tablet PO ×2 (10:16→21:46)
[2024-05-21] MEDS: Gabapentin 600 MG Tablet PO ×2 (10:19→21:49)
[2024-05-21 10:51] LABS: Ferritin 46 ng/mL (8-252); Iron 25 ug/dL (50-170); Iron Binding Capacity,Total 260 ug/dL (250-450); PERCENT IRON SATURATION 9.6 % (15.0-55.0)
[2024-05-21 11:00] VITALS: BP 116/60; PULSE 80; RESP 14; TEMP 36.1; O2SAT 96
--- NOTE | 2024-05-21 11:46 | NURSING ---
AC check for lunch 1146 was 112 per patient leia
[2024-05-21] MEDS: Isosorbide Mononitrate 30 MG Tablet PO (11:50)
[2024-05-21] MEDS: Levothyroxine 112 MCG Tablet PO (11:50)
[2024-05-21 12:47] LABS: Hematocrit 29.2 % (37-47); Hemoglobin 9.2 g/dL (12.0-15.0)
[2024-05-21 14:15] VITALS: BP 118/52; PULSE 70; RESP 18; TEMP 36.6; O2SAT 97
[2024-05-21] MEDS: Insulin Lispro 100 UNIT/ML INSULN.PEN SC (17:22)
--- NOTE | 2024-05-21 17:28 | NURSING ---
Per patient personal leia AC Check, patient was at 213 around 1715. 4 units of humalog given.
[2024-05-21 21:41] VITALS: BP 114/59; PULSE 88; RESP 18; TEMP 36.9; O2SAT 96
[2024-05-21] MEDS: Insulin Glargine-YFGN 100 UNIT/ML Pen 15 UNIT SC (21:44)
[2024-05-21] MEDS: Allopurinol 100 MG Tablet PO (21:46)
[2024-05-21] MEDS: Amitriptyline 25 MG Tablet 50 MG PO (21:46)
[2024-05-21] MEDS: Atorvastatin Calcium 80 MG Tablet PO (21:46)
--- NOTE | 2024-05-21 22:05 | NURSING ---
At 2140, patient's blood glucose was 138 according to her leia device.
--- NOTE | 2024-05-21 22:05 | NURSING ---
Blood glucose at 2140, pt's blood glucose was 138 according to her leia. Insulin glargine given as ordered. Snack provided.
[2024-05-21] MEDS: Acetaminophen 325 MG Tablet 650 MG PO (22:40)
--- NOTE | 2024-05-22 00:30 | NURSING ---
At 2330, patient's blood sugar was 149 according to her leia device.
--- NOTE | 2024-05-22 00:36 | NURSING ---
Blood glucose at 2330, pt's blood glucose was 149 according to her leia.
[2024-05-22] MEDS: 0.9% Normal Saline (1000mL) 1,000 ML 50 ML IV (03:17)
[2024-05-22 03:18] VITALS: BP 106/48; PULSE 83; RESP 16; TEMP 36.7; O2SAT 96
[2024-05-22] MEDS: Levothyroxine 112 MCG Tablet PO (04:07)
[2024-05-22 04:28] LABS: Absolute Lymphocyte Count 2.08 X10^3/uL (0.83-4.51); Absolute Neutrophil Count 5.2 X10^3/uL (2.0-7.7); Basophil# 0.04 X10^3/uL; Basophil% 0.5 % (0-1); Eosinophil# 0.13 X10^3/uL; Eosinophils% 1.5 % (0-5); Hematocrit 23.6 % (37-47); Hemoglobin 7.6 g/dL (12.0-15.0); Lymphocyte # 2.08 X10^3/ul (0.83-4.51); Lymphocyte % 24.3 % (19-41); Mean Corp Hgb Conc 32.2 g/dL (32-36); Mean Corpuscular Hgb 29.2 pg (27.0-32.0); Mean Corpuscular Volume 90.8 fL (81-99); Mean Platelet Vol. 9.3 fl (6.2-12.0); Monocyte# 0.58 X10^3/uL; Monocyte% 6.8 % (0-10); NRBC Flagged by Analyzer 0.4 % (0-5); Neutrophil # 5.18 X10^3/uL (2.7-7.7); Neutrophil % 60.4 % (47-70); POSITIVE COUNT YES; POSITIVE MORPHOLOGY YES; Platelet Count 441 K/mm3 (150-450); RBC Distribution Width CV 16.5 % (11.6-14.6); RBC Distribution Width SD 54.5 fl (35.1-43.9); White Blood Count 8.6 K/mm3 (4.4-11.0)
[2024-05-22 04:30] LABS: Differential Indicated SCAN CRITERIA MET
[2024-05-22 04:59] LABS: Anion Gap 7 (5-15); BUN 11 mg/dL (7-18); BUN/Creat Ratio 10.8 RATIO (10-20); Calcium,Total 7.9 mg/dL (8.5-10.1); Chloride 110 mmol/L (98-107); Creatinine, Serum 1.02 mg/dL (0.55-1.02); EST Glomerular Filtration Rate 57 mL/min (>60); Est Glom Filt Rate - Afr Amer 69 mL/min (>60); Estimated Creatinine Clearance 46.18 ml/min; Glucose 138 mg/dL (74-106); Potassium 3.6 mmol/L (3.5-5.1); Sodium Level 138 mmol/L (136-145)
[2024-05-22 05:06] LABS: Differential Comment SCANNED
[2024-05-22 05:37] VITALS: BMI 31.0
--- NOTE | 2024-05-22 06:51 | NURSING ---
At 0600, pt's blood glucose was 124 according to her leia.
[2024-05-22 08:35] VITALS: BP 128/63; PULSE 62; RESP 16; TEMP 36.6; O2SAT 96
[2024-05-22] MEDS: Divalproex Sodium 125 MG SPRINKLE PO (08:45)
[2024-05-22] MEDS: Pantoprazole Sodium 40 MG Tablet PO (08:45)
[2024-05-22] MEDS: Colestipol 1 GM TABLET PO (08:46)
[2024-05-22] MEDS: Losartan Potassium 50 MG Tablet PO (08:46)
[2024-05-22] MEDS: Carvedilol 6.25 MG Tablet PO (08:46)
[2024-05-22] MEDS: Meclizine HCl 25 MG Tablet PO (08:51)
[2024-05-22] MEDS: Gabapentin 600 MG Tablet PO (08:51)
--- NOTE | 2024-05-22 09:54 | DCINST_ITS ---
Discharge Instructions Diet Discharge Diet: Low fat / Low cholesterol and Carb Control Diet DC O2, CPAP, BIPAP needs Home O2 Discharge instructions: No Dressing / Incision Discharge Activity: Return to Normal Activity Dressing / Incision Call your doctor if you observe: Fever of 101 or Higher, Shortness of breath, Dizziness, Fainting spells, Swelling in the ankles, Chest pain and Increased palpitations (irregular heartbeat) Follow Up Care Test Results: Test results from this visit will be discussed in further detail at your follow- up appointment, if applicable. Discharge Plan Admission Admit Date/Time: 05/13/24 20:01 Attending Provider: Harry Iniguez Primary Care Provider: Denise Uribe Consulting Providers: Bassem Diamond; Davie Clayton; Jailyn Wiggins Discharge Orders/Prescriptions Prescriptions: Continued (DME) lancets Misc See Rx Instructions .ROUTE .MEDSUPPLY Qty: 300 0RF Rx Instructions: Check 3 times a day and as needed (DME) TENS 502 Device See Rx Instructions .Route Qty: 1 0RF Rx Instructions: As directed gabapentin 600 mg tablet 600 mg PO BID insulin lispro [Humalog KwikPen Insulin] 100 unit/mL insulin pen 20 unit subcut TID nitroglycerin [Nitrostat] 0.4 mg tablet, sublingual 0.4 mg sublingual Q5-15M PRN (Reason: chest pain) Qty: 25 3RF Rx Instructions: do not exceed 3 doses per episode carvedilol 6.25 mg tablet 6.25 mg PO BID Qty: 180 3RF Rx Instructions: must administer with a meal/food (DME) OneTouch Verio test strips Strip See Rx Instructions .ROUTE .MEDSUPPLY Qty: 300 3RF Rx Instructions: Check 3 times a day and as needed (DME) blood-glucose meter [OneTouch Verio Flex meter] Misc See Rx Instructions .Route Qty: 1 0RF Rx Instructions: As directed colestipol 1 gram tablet 1 g PO DAILY Qty: 100 2RF amitriptyline 50 mg tablet 50 mg PO QHS Qty: 90 3RF divalproex 125 mg capsule, delayed rel sprinkle 125 mg PO BID Qty: 200 1RF atorvastatin 80 mg tablet 80 mg PO QHS Qty: 100 2RF Rx Instructions: cholesterol (DME) pen needle, diabetic [BD Ultra-Fine Sophia Pen Needle] 32 gauge x 5/32 needle See Rx Instructions .Route Qty: 400 3RF Rx Instructions: qid triamterene-hydrochlorothiazid 37.5-25 mg tablet 1 tab PO DAILY Qty: 90 0RF pantoprazole 40 mg tablet,delayed release (DR/EC) 40 mg PO DAILY Qty: 90 0RF levothyroxine 112 mcg tablet 112 mcg PO MOTUWETHFR Qty: 90 0RF icosapent ethyl [Vascepa] 1 gram capsule 2 g PO BID Qty: 120 5RF albuterol sulfate 90 mcg/actuation HFA aerosol inhaler 2 puff INHALATION Q6H PRN (Reason: Wheezing) Qty: 8.5 6RF allopurinol 100 mg tablet 100 mg PO QHS Qty: 90 11RF insulin glargine [Lantus Solostar U-100 Insulin] 100 unit/mL (3 mL) insulin pen 50 unit subcut QHS Qty: 45 1RF nystatin [Nyamyc] 100,000 unit/gram powder 1 applic topical BID PRN (Reason: for infectious disease) Qty: 30 11RF (DME) FreeStyle Marilyn 14 Day Sensor Kit See Rx Instructions .ROUTE .MEDSUPPLY Qty: 6 3RF Rx Instructions: As directed (DME) handicap placard See Rx Instructions .ROUTE .MEDSUPPLY Qty: 1 0RF Rx Instructions: Length of time: 1 years Diagnosis: Impaired physical mobility Z74.09 meclizine 12.5 mg tablet 12.5 - 25 mg PO Q8H PRN PRN (Reason: dizziness) Qty: 30 1RF losartan 50 mg tablet 50 mg PO DAILY Qty: 100 0RF isosorbide mononitrate 30 mg tablet extended release 24 hr 30 mg PO DAILY Qty: 90 3RF Held ticagrelor 90 mg tablet 90 mg PO BID Hold Instructions: Resume on 05/24/24. Eliquis 5 mg tablet 5 mg PO BID Qty: 180 3RF Hold Instructions: Resume on 05/24/24. Referrals / Follow Up: Denise Uribe MD [Primary Care Provider] - Within 1 Week Disposition Disposition (needs filled in before D/C Order can be placed): Home, Self Care
--- NOTE | 2024-05-22 10:08 | PN.SURG_ITS ---
Subjective Subjective Patient seen and examined during AM rounds. She is currently eating breakfast with milk and cereal and states that she is doing well with this new diet. She denies any nausea. She reports that she had 3-4 loose bowel movements yesterday and continues to pass flatus. As such, she is declining use of a suppository this morning. Objective Data Objective Data Vital Signs: Vital Signs Temp Pulse Resp BP Pulse Ox O2 Del Method O2 Flow Rate 97.8 F 62 16 128/63 H 96 Room Air 2 05/22/24 08:35 05/22/24 08:35 05/22/24 08:35 05/22/24 08:35 05/22/24 08:35 05/22/24 08:59 05/18/24 21:09 Oxygen Flow Rate (L/min) 2 Oxygen Delivery Method Room Air Weight: 153 lb 10.595 oz Body Mass Index (BMI) 31.0 Intake & Output: Intake and Output for Last 24 Hours 05/20/24 05/21/24 05/22/24 23:59 23:59 23:59 Intake Total 1388.33 / 1388.33 3705 / 4105 1029.17 / 1029.17 Output Total 800 / 800 Balance 1388.33 / 1388.33 2905 / 3305 1029.17 / 1029.17 Medical Nutrition Assessment Dietitian: Malnutrition Criteria Met Start: 05/17/24 15:05 Freq: Status: Active Protocol: Document 05/17/24 15:06 SB (Rec: 05/17/24 15:06 SB [id number]) Nutrition Malnutrition Evidence of Malnutrition Exists Yes Malnutrition (severe): Acute Illness/Injury Evidenced By Suboptimal Energy Intake ( Severe),Weight Loss (Severe) Clinical Problem Acute Disease or Injury Related Malnutrition Etiology severe related to inadequate oral intake and altered GI function Signs/Symptoms as evidenced by PO meeting <75 % of estimated nutrition needs x 4-5 months 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 5 months; extended NPO x 4 days. Status Active Problem Altered Nutrient-Related Laboratory Values Etiology related to endocrine dysfunction/diabetes Signs/Symptoms as evidneced by A1C 8.8% Status Active Problem Recommendation Dietitian Recommendations/Changes If able to take PO recommend advanced diet as tolerated to 1600 calorie controlled/ consistent carbohydrate diet. If PO reminded NPO, recommend nutrition support. Consult RD for initiated and management of TPN as needed. Will add 1 scoop of beneprotein TID with meals. Will monitor weight, as available. Reviewed and approved by Karen Tate MS, RDN, LD. Lab / Micro Data 05/22/24 04:02 05/22/24 04:02 Labs: Laboratory Results - last 24 hr 05/21/24 09:00: Iron 25 L, TIBC 260, Iron Saturation 9.6 L, Ferritin 46 05/21/24 12:40: Hgb 9.2 L, Hct 29.2 L 05/22/24 04:02: WBC 8.6, RBC 2.60 L, Hgb 7.6 L, Hct 23.6 L, MCV 90.8, MCH 29.2, MCHC 32.2, RDW Std Deviation 54.5 H, RDW Coeff of Yaw 16.5 H, Plt Count 441, MPV 9.3, Immature Gran % (Auto) 6.500 H, Neut % (Auto) 60.4, Lymph % (Auto) 24.3, Davison % (Auto) 6.8, Eos % (Auto) 1.5, Baso % (Auto) 0.5, Absolute Neuts (auto) 5.2, Absolute Lymphs (auto) 2.08, Nucleated RBC % 0.4, Differential Comment SCANNED, Sodium 138, Potassium 3.6, Chloride 110 H, Carbon Dioxide 21.0, Anion Gap 7, BUN 11, Creatinine 1.02, Estim Creat Clear Calc 46.18, Est GFR (MDRD) Af Amer 69, Est GFR (MDRD) Non-Af 57 L, BUN/Creatinine Ratio 10.8, Glucose 138 H, C alcium 7.9 L Micro: Microbiology 05/21/24 13:10 Stool Stool Occult Blood (DEBBI) - Final 05/16/24 19:35 Stool Ova and Parasites - Final 05/16/24 19:35 Stool Enteric Bacteriology - Final 05/16/24 19:35 Stool Stool Lactoferrin - Final Physical Exam Const oriented x3 and no apparent distress Resp normal respiratory effort GI GI Narrative: Decreased abdominal distention, soft, nontender to palpation x 4 quadrant Assessment & Plan Assessment/Plan (1) Intractable nausea and vomiting: PLAN: Patient is a 68-year-old female that was admitted with intractable nausea and vomiting and underwent NG tube placement and a small bowel follow-through. At the completion of the study no clear area of obstruction was noted, however, I noted the persistence of centrally?located dilated loops of small bowel and requested that nursing return the patient's NG tube to suction as I was concerned for an ongoing adynamic ileus. The NG tube was discontinued the following day and patient was advanced on a clear liquid diet. She initially appeared to tolerate the clear liquid diet but denied any significant appetite and subsequent KUB showed return of small bowel distention so she was once again made NPO. Given that patient denied any abdominal pain or nausea I elected to try to stimulate bowel function from below with scheduled suppositories and this appeared to be effective. Over the past 24 hours patient had multiple bowel movements so I advanced her to a transitional diet which she appears to be tolerating with an improved abdominal exam as well. With patient's response to suppositories and reports now of looser bowel movements I maintain that this appears more consistent with ileus resolution and partial small bowel obstruction. Have urged patient to continue gradual return to regular diet. Given her positive clinical progress I believe she is now suitable to return to her antiplatelet/anticoagulation medications. And lastly, patient is able to tolerate another meal while inpatient and believe she is suitable for discharge home from a surgical perspective. Anemia is noted in patient's laboratories, however, and conferencing with bedside nursing there is a strong possibility this is secondary to immediate hemodilution from patient's concurrently running saline just upstream from where her laboratories were collected. Further, patient denies noting any signs of blood in her recent bowel activity and denies any symptoms of anemia. At this juncture recommend further outpatient evaluation of this issue and scheduled follow-up with PCP. The above impressions were discussed with patient's primary hospitalist, Dr. Iniguez. Jb Jackson MD General Surgery Endocrine Surgery Pager: [facility] [address] [place] [address], [address] [place] [address] Office: [phone] (2) Paralytic ileus of small intestine: Charges/Coding Visit Charges Inpatient E&M: 41131 Subs Hosp L2
[2024-05-22 11:35] VITALS: BP 150/68; PULSE 60; RESP 16; TEMP 36.4; O2SAT 96
[2024-05-22] MEDS: Isosorbide Mononitrate 30 MG Tablet PO (11:38)
[2024-05-22] MEDS: Insulin Lispro 100 UNIT/ML INSULN.PEN SC (11:39)
--- NOTE | 2024-05-22 16:21 | PCM.DC.SUM ---
Providers Date of Admission: 05/13/24 Primary Care Physician: Dr. Denise Uribe MD Consultations 05/14/24 07:50 Consult: General Surgery Routine Consulting Provider: Davie Clayton Reason for Consult: ? ileus versus developing SBO EMERGENT Consult: No MD Notified: Yes Date Notified: 05/14/24 Time Notified: 07:50 Method of Notification: Text Reason For Visit: SALVATORE LACTIC ACIDOSIS LEUKOCYTOSIS AND ILEUS WITH Diagnosis Discharge Diagnosis (1) Intractable nausea and vomiting: Status: Acute Code(s): R11.2 - Nausea with vomiting, unspecified (2) Paralytic ileus of small intestine: Status: Acute Code(s): K56.0 - Paralytic ileus Medications at Discharge Home Medications lancets #300 ea 01/24/23 nitroglycerin 0.4 mg sublingual tablet (Nitrostat) 0.4 mg sublingual Q5-15M PRN chest pain #25 tabs 10/04/23 carvedilol 6.25 mg tablet 6.25 mg PO BID #180 tabs 10/05/23 blood sugar diagnostic (OneTouch Verio test strips) #300 ea 11/29/23 blood-glucose meter (OneTouch Verio Flex Meter) #1 ea 11/29/23 TENS units (TENS 502 device) #1 ea 12/05/23 colestipol 1 gram tablet 1 g PO DAILY cholesterol #100 tabs 12/05/23 amitriptyline 50 mg tablet 50 mg PO QHS #90 tabs 12/14/23 apixaban 5 mg tablet (Eliquis) 5 mg PO BID #180 tabs 01/02/24 divalproex 125 mg capsule,delayed release sprinkle 125 mg PO BID bipolar #200 caps 02/01/24 atorvastatin 80 mg tablet 80 mg PO QHS Hyperlipidemia #100 tabs 02/05/24 albuterol sulfate 90 mcg/actuation aerosol inhaler 2 puff inhalation Q6H PRN Wheezing #8.5 grams 02/27/24 icosapent ethyl 1 gram capsule (Vascepa) 2 g (2 x 1 gram) PO BID #120 caps 02/27/24 levothyroxine 112 mcg tablet 112 mcg PO MOTUWETHFR thyroid #90 tabs 02/27/24 pantoprazole 40 mg tablet,delayed release 40 mg PO DAILY gerd #90 tabs 02/27/24 pen needle, diabetic 32 gauge x 5/32 (BD Ultra-Fine Sophia Pen Needle) #400 ea 02/27/24 triamterene 37.5 mg-hydrochlorothiazide 25 mg tablet 1 tab PO DAILY #90 tabs 02/27/24 allopurinol 100 mg tablet 100 mg PO QHS gout #90 tabs 03/18/24 insulin glargine 100 unit/mL (3 mL) subcutaneous pen (Lantus Solostar U-100 Insulin) 50 unit (0.5 mL) subcut QHS #45 mL 03/18/24 nystatin 100,000 unit/gram topical powder (Nyamyc) 1 applic topical BID PRN for infectious disease #30 GMS 03/19/24 ticagrelor 90 mg tablet 90 mg PO BID 03/20/24 flash glucose sensor (FreeStyle Marilyn 14 Day Sensor kit) #6 ea 03/21/24 handicap placard #1 ea 04/16/24 meclizine 12.5 mg tablet 12.5 - 25 mg (1 - 2 x 12.5 mg) PO Q8H PRN PRN dizziness #30 tabs 04/22/24 losartan 50 mg tablet 50 mg PO DAILY #100 TABLETS 05/07/24 isosorbide mononitrate 30 mg tablet,extended release 24 hr 30 mg PO DAILY #90 tabs 05/08/24 gabapentin 600 mg tablet 600 mg PO BID for neuropathy 05/13/24 insulin lispro 100 unit/mL subcutaneous pen (Humalog KwikPen (U-100) Insulin) 20 unit subcut TID 05/13/24 Hospital Course Operations None Procedures None Summary of Care Provided Minutes Spent on Discharge: 35 Hospital Course: Per HPI: ASIF DELA CRUZ, is a 68 F with a past medical history of essential hypertension; on losartan, triamterene-HCTZ nand carvedilol, hyperlipidemia; on atorvastatin and vascepa, hypothyroidism; on levothyroxine, history of tobacco abuse, obesity; with BMI of 30.7 present on admission, DM-2; of unknown control on lispro 20U sq TID and glargine 50U sq HS, diabetic neuropathy; on gabapentin, PAF; on apixaban, history of CAD; s/p stents (2021) on ticagrelor and prn ISMO and CKD; stage III, history on gout; on allopurinol, history of bipolar disorder; on amitriptyline and divalproex, history of fibromyalgia, history of gout; on allopurinol, history of vertigo; on prn meclizine, history of chronic pancreatic insufficiency, GERD with history of hiatal hernia; on pantoprazole, history of shoulder surgery, history of MICHAEL, history of laparoscopic appendectomy, history of cholecystectomy and OA who presents to [facility] ER complaining of abdominal pain. Ms. Dela Cruz reports her symptoms began approximately three to four days prior to admission with nausea, vomiting and diarrhea with patient admitting that a family member was recently sick with a similar illness. Then earlier today she developed abdominal pain with significant distention and increased eructation - but with no BM today. She states the diarrhea is watery with no gross blood noted in stool or emesis. She denies associated fever, chills, chest pain, SOB, dysuria, headache or recent antibiotic use. In the ER she was noted to have intractable nausea, vomiting and watery diarrhea due to suspected Viral Gastroenteritis with CT evidence of fluid-filled small bowel segments with no transition point consistent with suspected Adynmaic Ileus vs PSBO with normal appearance of the large bowel and appendicolith in the tip of the appendix without evidence of acute appendicitis complicated by laboratory evidence of Leukocytosis of 12.1K, Thrombocytosis of 650K and Lactic Acidosis of 2.4 mmol/L present on admission along with Hyponatremia of 124 mmol/L, Hyperkalemia of 5.4 mmol/L and Hyponatremia of 124 mmol/L all present on admission compounded by suspected SALVATORE; with elevated serum creatinine of 2.37 mg/dL and BUN of 45 mg/dL present on admission likely due to Dehydration from recent Diarrhea and she was then admitted to the PCU for ongoing care for a stay that is expected to extend beyond 2 midnights. Hospital Course: #1. Acute Abdominal pain with associated nausea, emesis, diarrhea with family members with similar symptoms with questionable adynamic ileus versus developing a partial small bowel obstruction with associated lactic acidosis, 05/15/2024 high suspicion for small bowel obstruction: ED evaluation with CT abdomen and pelvis with fluid-filled distended small bowel segments with no transition point with questionable adynamic ileus versus developing or partial small bowel obstruction, normal appearance large bowel, appendicolith in the tip the appendix however no evidence of appendicitis, evidence status post cholecystectomy without ductal dilatation, admission CBC with WBC 12.1, hemoglobin 12.3, platelets 650 with left shift, admission CMP with sodium 124, potassium 5.4 however moderately hemolyzed thus falsely elevated, chloride 94, At 18, BUN/creatinine 45/2.37, GFR 22, glucose 339, lactic acid 2.4, hepatic profile with alk phos 146, lipase 16, urinalysis with no obvious evidence of UTI. Admitted to telemetry, continued hydration, lactic acid trended down to 1.7. 05/14/24 surgery consultation requested w/ favored ileus over SBO with recommendation for continued n.p.o. status with offered NG tube given it may improve her symptoms but she declined following discussion with surgery, defer any concept of small bowel follow-through until nausea improves, 05/14/24 AM KUB with mildly dilated small bowel loops again possible indicative of ileus or partial obstruction-->05/15/24 KUB worsened appearance with increased small bowel dilatation with concern for small bowel obstruction. 05/15/24 NG tube placed to low intermittent suction. 05/16/24 KUB with decreased small bowel dilatation compared to previous. 05/16/2024 given KUB appearance at onset of flatus surgery initiated SBFT 24 hours protocol. 05/17/24 small bowel follow-through resulted negative however surgery concerned given increased output via NG but following further investigation patient had significant ice chip intake likely increasing falsely the amount. PT/OT/case management following with encouragement of up and active to assist also with charley horses but prevent worsening we can status. Stool studies requested with positive stool lactoferrin WBCs, negative enteric pathogens. 05/18/2024 KUB with interval decrease in small bowel dilatation with oral contrast seen in the ascending colon. 05/18/2024 NG tube discontinued. 05/18/2024 evening patient eventually transition from sips and chips to clears. 05/19/24 KUB with mild gaseous distention of loops of bowel similar to prior exam, minimal oral contrast partially visualized within the colon relatively decompressed at best visualized with no overt bowel obstruction. Per discussion with surgery they are very slowly going to advance her and will defer this to their discretion. 05/20/2024: Initially small bowel follow-through was negative for an SBO but then KUB this morning shows increased dilation of bowel loops. Will hold Eliquis and Brilinta continue with clear liquid diet for possible surgery in a day or 2 versus transfer. Brilinta is half-life is 7 hours and shows significant decrease in function after about 72 hours, last dose was 05/19/2020 4 in the evening 05/21/2024: Repeat KUB today demonstrates improvement in her small bowel dilatation continue with clears. 05/22/2024: Tolerating a diet today without any nausea or vomiting, fecal occult was negative for blood and it appears that she has been a difficult stick and so some of the blood has been drawn from the IV line so dilution is of a concern for her anemia. Iron studies demonstrated anemia of chronic disease given her chronic kidney disease. Discussed the case with general surgery who felt this and she was able to tolerate a diet that this was likely a very severe ileus and that she could be discharged if she tolerated diet. I discussed with her the possibility for discharge today she expressed understanding Anthony of his going home and would like to go home today. I do recommend that she follow-up with her PCP next week for monitoring. #2. 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 Encouraged dosing this morning and will transition to at least a moderate dose insulin sliding scale. Continued on oral gabapentin regimen. #3. Acute hyponatremia, hypochloremia, suspected hypovolemic etiology given acute presentation #1: Admission sodium 124, chloride 94, hydrated with IVFs, repeat 05/17/2024 CMP with sodium 135. 05/19/24 Na 130, Chl 95 with concern for lessened intake, administered IVF bolus and will monitor intake. If not notable then low threshold to restart MIVFs. Repeat CMP in AM. #4. Acute kidney injury on CKD stage III unclear subtype per GFR trend: Secondary to acute presentation as noted, poor intake. Admission BUN/Cr 45/2.37, GFR 22, prior baseline creatinine noted to be 1.1-1.5 although has vacillated. Hydrated, hold nephrotoxic medications. Urinalysis not marked appearing, no evidence of obstructive process on CT abdomen and pelvis. 05/14/2024 BUN/creatinine 29/2.05, GFR 26-> 05/19/2024 BUN/creatinine 21/1.09, GFR 53. Will continue to trend. As noted above 05/19/2020 for planned IV fluid bolus and continued close monitoring of intake. Given patient resolution of acute kidney injury patient's losartan was resumed as noted. #5. Hypokalemia, hypomagnesemia: Admission K+ 3.2, magnesium 1.3, supplementation given, repeat levels in AM. #6. PAF: We will continue patient home Coreg with hold parameters and home Eliquis regimen. #7. CAD: s/p PCI, will continue patient home Eliquis, Brilinta, statin in addition to Coreg and lisinopril with hold parameters as needed. #8. Chronic normocytic anemia: Admission hemoglobin 12.3, MCV 91.3 however falsely decreased given dehydrated status, baseline hemoglobin previous to this 9-10, 05/19/2024 hemoglobin 10.3, continue to trend. 05/21/2024, continued downtrend in her hemoglobin we will recheck this afternoon, will check a fecal occult as well as iron studies #9. Anxiety and Depression/Bipolar disorder: Continue home Depakote regimen. #10. Hypothyroidism: Continue home levothyroxine regimen. #11. Hypertension: Continue patient home Coreg, isosorbide, losartan home regimen with specific hold parameters in place, PRN hydralazine. #12. Hyperlipidemia: Continue home statin. #13. Obesity: Weight loss and lifestyle changes encouraged. #14. Tobacco Abuse: Encouraged cessation, inpatient consultation per RT, NR if desired. #15. GERD: 05/19/24 increased BID PPI given dyspepsia overnight. Physical Exam Narrative General: Alert, Oriented x3, Cooperative, No apparent distress HEENT: Atraumatic, PERRLA, EOMI, Normocephalic Oral: Moist Mucosa Neck: Supple, No JVD Lungs: Diminished, Normal air movement, No rhonchi, No wheeze, No rales Cardiovascular: Regular rate, Regular Rhythm, Normal S1, Normal S2, No murmurs Abdomen: Soft, Non Tender, slightly distended, No Hepato-splenomegaly Extremities: No edema, Capillary Refill Less than 3 Seconds Skin: No rashes, No breakdown Musculoskeletal: No Tenderness to Palpation of Joints or Extremities Neurological: No focal neurological deficits, Motor Exam 5/5 strength throughout, Sensory exam intact to light touch and pain Psych/Mental Status: Normal Affect, Appropriate Weight / BMI Weight Weight: 153 lb 10.595 oz Body Mass Index (BMI) 31.0 ABG / Lab / Microbiology Data 05/22/24 04:02 05/22/24 04:02 Laboratory: Laboratory Results - last 24 hr 05/22/24 04:02: WBC 8.6, RBC 2.60 L, Hgb 7.6 L, Hct 23.6 L, MCV 90.8, MCH 29.2, MCHC 32.2, RDW Std Deviation 54.5 H, RDW Coeff of Yaw 16.5 H, Plt Count 441, MPV 9.3, Immature Gran % (Auto) 6.500 H, Neut % (Auto) 60.4, Lymph % (Auto) 24.3, [place] % (Auto) 6.8, Eos % (Auto) 1.5, Baso % (Auto) 0.5, Absolute Neuts (auto) 5.2, Absolute Lymphs (auto) 2.08, Nucleated RBC % 0.4, Differential Comment SCANNED, Sodium 138, Potassium 3.6, Chloride 110 H, Carbon Dioxide 21.0, Anion Gap 7, BUN 11, Creatinine 1.02, Estim Creat Clear Calc 46.18, Est GFR (MDRD) Af Amer 69, Est GFR (MDRD) Non-Af 57 L, BUN/Creatinine Ratio 10.8, Glucose 138 H, Calcium 7.9 L Microbiology: Microbiology 05/21/24 13:10 Stool Stool Occult Blood (DEBBI) - Final 05/16/24 19:35 Stool Ova and Parasites - Final 05/16/24 19:35 Stool Enteric Bacteriology - Final 05/16/24 19:35 Stool Stool Lactoferrin - Final D/C Instructions Discharge Diet: Low fat / Low cholesterol and Carb Control Diet Call your doctor if you observe: Fever of 101 or Higher, Shortness of breath, Dizziness, Fainting spells, Swelling in the ankles, Chest pain and Increased palpitations (irregular heartbeat) DC O2, CPAP, BIPAP Needs Home O2 Discharge instructions: No Meaningful Use Info Meaningful Use Meaningful Use Diagnoses (Choose all that apply): None applicable Ischemic Stroke Statin Dosing Therapy Reference: STATIN DOSE THERAPY REFERENCE: * Patients > 75 years receive moderate or high dose statin therapy. * Patients 75 years or YOUNGER should receive HIGH intensity statin dose unless contraindicated. You will be required to document reason for non-treatment if statin daily dose does not meet guidelines. HIGH DOSE STATIN THERAPY DAILY Atorvastatin > than or = to 40 mg Rosuvastatin > than or = to 20 mg Amlodipine + Atorvastatin > than or = to 2.5/40 mg Ezetimibe + Simvastatin 10/80 mg Simvastatin 80mg Discharge Plan Admission Admit Date/Time: 05/13/24 20:01 Attending Provider: Harry Iniguez Primary Care Provider: Denise Uribe Consulting Providers: Bassem Diamond; Davie Clayton; Jailyn Wiggins Instructions Additional Instructions / Restrictions: F/u with your PCP to monitor your anemia with an outpatient CBC Discharge Orders/Prescriptions Prescriptions: Continued (DME) lancets Misc See Rx Instructions .ROUTE .MEDSUPPLY Qty: 300 0RF Rx Instructions: Check 3 times a day and as needed (DME) TENS 502 Device See Rx Instructions .Route Qty: 1 0RF Rx Instructions: As directed gabapentin 600 mg tablet 600 mg PO BID insulin lispro [Humalog KwikPen Insulin] 100 unit/mL insulin pen 20 unit subcut TID nitroglycerin [Nitrostat] 0.4 mg tablet, sublingual 0.4 mg sublingual Q5-15M PRN (Reason: chest pain) Qty: 25 3RF Rx Instructions: do not exceed 3 doses per episode carvedilol 6.25 mg tablet 6.25 mg PO BID Qty: 180 3RF Rx Instructions: must administer with a meal/food (DME) OneTouch Verio test strips Strip See Rx Instructions .ROUTE .MEDSUPPLY Qty: 300 3RF Rx Instructions: Check 3 times a day and as needed (DME) blood-glucose meter [OneTouch Verio Flex meter] Misc See Rx Instructions .Route Qty: 1 0RF Rx Instructions: As directed colestipol 1 gram tablet 1 g PO DAILY Qty: 100 2RF amitriptyline 50 mg tablet 50 mg PO QHS Qty: 90 3RF divalproex 125 mg capsule, delayed rel sprinkle 125 mg PO BID Qty: 200 1RF atorvastatin 80 mg tablet 80 mg PO QHS Qty: 100 2RF Rx Instructions: cholesterol (DME) pen needle, diabetic [BD Ultra-Fine Sophia Pen Needle] 32 gauge x 5/32 needle See Rx Instructions .Route Qty: 400 3RF Rx Instructions: qid triamterene-hydrochlorothiazid 37.5-25 mg tablet 1 tab PO DAILY Qty: 90 0RF pantoprazole 40 mg tablet,delayed release (DR/EC) 40 mg PO DAILY Qty: 90 0RF levothyroxine 112 mcg tablet 112 mcg PO MOTUWETHFR Qty: 90 0RF icosapent ethyl [Vascepa] 1 gram capsule 2 g PO BID Qty: 120 5RF albuterol sulfate 90 mcg/actuation HFA aerosol inhaler 2 puff INHALATION Q6H PRN (Reason: Wheezing) Qty: 8.5 6RF allopurinol 100 mg tablet 100 mg PO QHS Qty: 90 11RF insulin glargine [Lantus Solostar U-100 Insulin] 100 unit/mL (3 mL) insulin pen 50 unit subcut QHS Qty: 45 1RF nystatin [Nyamyc] 100,000 unit/gram powder 1 applic topical BID PRN (Reason: for infectious disease) Qty: 30 11RF (DME) FreeStyle Marilyn 14 Day Sensor Kit See Rx Instructions .ROUTE .MEDSUPPLY Qty: 6 3RF Rx Instructions: As directed (DME) handicap placard See Rx Instructions .ROUTE .MEDSUPPLY Qty: 1 0RF Rx Instructions: Length of time: 1 years Diagnosis: Impaired physical mobility Z74.09 meclizine 12.5 mg tablet 12.5 - 25 mg PO Q8H PRN PRN (Reason: dizziness) Qty: 30 1RF losartan 50 mg tablet 50 mg PO DAILY Qty: 100 0RF isosorbide mononitrate 30 mg tablet extended release 24 hr 30 mg PO DAILY Qty: 90 3RF Held ticagrelor 90 mg tablet 90 mg PO BID Hold Instructions: Resume on 05/24/24. Eliquis 5 mg tablet 5 mg PO BID Qty: 180 3RF Hold Instructions: Resume on 05/24/24. Referrals / Follow Up: Denise Uribe MD [Primary Care Provider] - Within 1 Week Disposition Disposition (needs filled in before D/C Order can be placed): Home, Self Care Charges/Coding Visit Charges Inpatient E&M: 97134 Disch Hosp >30min
== END 2024-05-22 14:28 | disposition home or self-care (01) | DRG 388 ==
LOC: ED 16:57 → PCU 19:58
PROVIDERS: Family Medicine; Admitting Provider Internal Medicine; Emergency Provider Surgery; PCP Internal Medicine; Visit Provider Family Medicine
DX: K56.0 Paralytic ileus (principal); E43 Unspecified severe protein-calorie malnutrition; E87.20 Acidosis, unspecified; E87.1 Hypo-osmolality and hyponatremia; N17.9 Acute kidney failure, unspecified; I48.0 Paroxysmal atrial fibrillation; E86.0 Dehydration; E11.22 Type 2 diabetes mellitus with diabetic chronic kidney disease; F31.9 Bipolar disorder, unspecified; I12.9 Hypertensive chronic kidney disease with stage 1 through stage 4 chronic kidney disease, or unspecified chronic kidney disease; N18.9 Chronic kidney disease, unspecified; E03.9 Hypothyroidism, unspecified; Z68.30 Body mass index [BMI] 30.0-30.9, adult; I25.10 Atherosclerotic heart disease of native coronary artery without angina pectoris; M10.9 Gout, unspecified; F17.210 Nicotine dependence, cigarettes, uncomplicated; E11.42 Type 2 diabetes mellitus with diabetic polyneuropathy; Z79.4 Long term (current) use of insulin; K21.9 Gastro-esophageal reflux disease without esophagitis; E87.8 Other disorders of electrolyte and fluid balance, not elsewhere classified; M19.90 Unspecified osteoarthritis, unspecified site; E78.5 Hyperlipidemia, unspecified; E11.69 Type 2 diabetes mellitus with other specified complication; E87.5 Hyperkalemia; E87.6 Hypokalemia; E11.65 Type 2 diabetes mellitus with hyperglycemia; R14.0 Abdominal distension (gaseous); R11.2 Nausea with vomiting, unspecified; A08.4 Viral intestinal infection, unspecified; Z90.710 Acquired absence of both cervix and uterus; Z95.5 Presence of coronary angioplasty implant and graft; Z82.5 Family history of asthma and other chronic lower respiratory diseases; Z79.85 Long-term (current) use of injectable non-insulin antidiabetic drugs; Z79.01 Long term (current) use of anticoagulants; Z79.02 Long term (current) use of antithrombotics/antiplatelets; E66.9 Obesity, unspecified; Z79.890 Hormone replacement therapy
CPT/HCPCS: 36415; 74018; 74176; 74250; 80048; 80053; 80164; 81001; 82274; 82330; 82570; 82728; 82803; 82962; 83036; 83540; 83550; 83605; 83630; 83690; 83735; 83930; 83935; 84100; 84300; 84443; 84484; 85014; 85018; 85025; 87177; 87209; 87506; 93005; 94668; 97110; 97116; 97161; 97162; 97166; 97168; 97530; 97535; 97802; 99285; A4216; J2405

== ENCOUNTER 2024-06-16 15:58 | Inpatient (IN) | payer MEDICARE, MEDICAID, SELFPAY ==
[2020-06-04 12:24] VITALS: BMI 26.4
[2024-06-16] VITALS (7 sets, daily range): BP systolic 94–159; BP diastolic 49–94; PULSE 63–95; RESP 15–21; TEMP 36.7–37.2; O2SAT 94–98; BMI 30.2; BMI 29.9
--- NOTE | 2024-06-16 16:38 | EDS_ITS ---
HPI <TAMMY Beckham - Last Filed: 06/16/24 19:52> History of Present Illness Chief Complaint: General Illness Narrative Narrative: 68-year-old female with PMH of HTN, HLD, CAD with stents, DM2, bipolar presents after a fall. She states both knees feel weak which causes her to suddenly fall. This has occurred since October 2023 and happens weekly. She states she has been seen in the ED before with no source found. She states she passed out once in the summer but has had NO recent presyncope or syncope. She states she has been living with her mom to help care for her so she has not seen her much. Today she was visiting her and her son and she had one of the knee weakness and falling episodes and her was worried and called the paramedics. She states she really did not want to come in as the symptoms are chronic. She denies hitting her head or any injuries. She has been able to walk since then. She has no chest pain, shortness of breath, or nausea or vomiting. 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 GFR 30-59 Fibromyalgia affecting multiple sites Shoulder pain, bilateral Hip pain, bilateral Tachybradycardia syndrome Near syncope Generalized OA Atherosclerotic heart disease of [place] coronary artery without angina pectoris Abnormal stress test Hypertension Chronic pancreatic insufficiency Depression Home Medications ?Medication ?Instructions ?Recorded ?Last Taken ?Type lancets #300 ea 01/24/23 Unknown Rx nitroglycerin 0.4 mg sublingual 0.4 mg sublingual Q5-15M PRN chest 10/04/23 Unknown Rx tablet (Nitrostat) pain #25 tabs blood sugar diagnostic (OneTouch #300 ea 11/29/23 Unknown Rx Verio test strips) blood-glucose meter (OneTouch #1 ea 11/29/23 Unknown Rx Verio Flex Meter) TENS units (TENS 502 device) #1 ea 12/05/23 Unknown Rx colestipol 1 gram tablet 1 g PO DAILY cholesterol #100 tabs 12/05/23 05/12/24 Rx amitriptyline 50 mg tablet 50 mg PO QHS sleep #90 tabs 12/14/23 05/12/24 Rx apixaban 5 mg tablet (Eliquis) 5 mg PO BID blood thinner #180 tabs 01/02/24 05/12/24 Rx atorvastatin 80 mg tablet 80 mg PO QHS Hyperlipidemia #100 02/05/24 05/12/24 Rx tabs albuterol sulfate 90 mcg/actuation 2 puff inhalation Q6H PRN Wheezing 02/27/24 05/12/24 Rx aerosol inhaler #8.5 grams icosapent ethyl 1 gram capsule 2 g (2 x 1 gram) PO BID hld #120 02/27/24 05/12/24 Rx (Vascepa) caps pen needle, diabetic 32 gauge x #400 ea 02/27/24 Unknown Rx (BD Ultra-Fine Sophia Pen Needle) allopurinol 100 mg tablet 100 mg PO QHS gout #90 tabs 03/18/24 05/12/24 Rx nystatin 100,000 unit/gram topical 1 applic topical BID PRN for 03/19/24 05/12/24 Rx powder ([facility]) infectious disease #30 GMS ticagrelor 90 mg tablet 90 mg PO BID see 03/20/24 05/12/24 History flash glucose sensor (FreeStyle #6 ea 03/21/24 Unknown Rx Marilyn 14 Day Sensor kit) handicap placard #1 ea 04/16/24 Unknown Rx meclizine 12.5 mg tablet 12.5 - 25 mg (1 - 2 x 12.5 mg) PO 04/22/24 05/12/24 Rx Q8H PRN PRN dizziness #30 tabs losartan 50 mg tablet 50 mg PO DAILY bp #100 TABLETS 05/07/24 05/12/24 Rx isosorbide mononitrate 30 mg 30 mg PO DAILY heart #90 tabs 05/08/24 05/12/24 Rx tablet,extended release 24 hr insulin lispro 100 unit/mL 20 unit subcut TID dm 05/13/24 05/12/24 History subcutaneous pen (Humalog KwikPen (U-100) Insulin) insulin glargine 100 unit/mL (3 50 unit (0.5 mL) subcut QHS #45 mL 05/27/24 Unknown Rx mL) subcutaneous pen (Lantus Solostar U-100 Insulin) levothyroxine 112 mcg tablet 112 mcg PO MOTUWETHFR thyroid #90 05/27/24 Unknown Rx tabs pantoprazole 40 mg tablet,delayed 40 mg PO DAILY gerd #90 tabs 05/27/24 Unknown Rx release triamterene 37.5 1 tab PO DAILY bp #90 tabs 05/27/24 Unknown Rx mg-hydrochlorothiazide 25 mg tablet gabapentin 600 mg tablet 600 mg PO BID for neuropathy #60 05/31/24 Unknown Rx TABLETS divalproex 125 mg capsule,delayed 125 mg PO BID bipolar #60 caps 06/02/24 Unknown Rx release sprinkle carvedilol 6.25 mg tablet 6.25 mg PO BID #180 tabs 06/06/24 Unknown Rx Allergy/AdvReac Type Severity Reaction Status Date / Time duloxetine (From Cymbalta) Allergy Itching Verified 06/16/24 15:59 Environmental Allergies: Allergy Cough Verified 06/16/24 15:59 Uncoded tomato Allergy Itching Verified 06/16/24 15:59 diphenhydramine (From AdvReac Severe other Verified 06/16/24 15:59 Benadryl) isosorbide AdvReac Intermediate Other Verified 06/16/24 15:59 adhesive tape (plastic tape) AdvReac Rash Verified 06/16/24 15:59 semaglutide (From Ozempic) AdvReac Diarrhea Verified 06/16/24 15:59 Family History Sister COPD (chronic obstructive pulmonary disease) Mother COPD (chronic obstructive pulmonary disease) Hypertension Alzheimer's dementia without behavioral disturbance Father Diabetes Hypertension Myocardial infarction Parkinsons disease Surgical History History of surgical procedure History of laparoscopic appendectomy History of total abdominal hysterectomy Hx of cholecystectomy Hx of shoulder surgery Presence of stent in coronary artery (~09/06/21) Social History (Updated 06/16/24 @ 20:[address] 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 CVS: Negative for palpitations, chest pain, syncope. Respiratory: Negative for shortness of breath, cough. GI: Negative for abdominal pain, nausea, vomiting. Positive for chronic diarrhea. : Negative for dysuria. Neuro: Negative for headache. EXAM <TAMMY Beckham - Last Filed: 06/16/24 19:52> Physical Exam Narrative Exam Narrative: CONST: Patient sitting in no acute distress. EYES: Normal inspection. PERRL, EOMI. ENT: Normal inspection, dry mucous membranes. NECK: Normal inspection. RESP: No respiratory distress, CTAB. Chest wall nontender. CVS: Regular rate and rhythm, no murmur, no gallop. ABD: Soft and nontender, no guarding or rebound, nondistended. SKIN: Color normal, no rash, warm, dry, intact. EXTREMITIES: Normal appearance, full range of motion upper and lower extremities, no tenderness, 5/5 strength, normal sensation, 2+ radial and DP pulses. NEURO: Alert and answering questions appropriately. PSYCH: Normal affect. Const Vital Signs: 06/16/24 16:00 06/16/24 17:25 06/16/24 18:00 Temperature 98.9 F Temperature Source Oral Pulse Rate 64 63 Respiratory Rate 18 15 Respiratory Effort Normal Non-Labored Respiratory Pattern Normal Blood Pressure 159/69 H 94/57 L Blood Pressure Mean 99 69 Pulse Ox 97 94 Oxygen Delivery Method Room Air Room Air 06/16/24 18:14 06/16/24 18:26 06/16/24 19:20 Temperature 98.9 F Temperature Source Pulse Rate 63 Respiratory Rate 15 Respiratory Effort Respiratory Pattern Blood Pressure 101/50 L 114/49 L 114/49 L Blood Pressure Mean 67 70 70 Pulse Ox 94 Oxygen Delivery Method <Dr. Canelo Gil DO - Last Filed: 06/17/24 00:14> Physical Exam Const Vital Signs: 06/16/24 16:00 06/16/24 17:25 06/16/24 18:00 Temperature 98.9 F Temperature Source Oral Pulse Rate 64 63 Respiratory Rate 18 15 Respiratory Effort Normal Non-Labored Respiratory Pattern Normal Blood Pressure 159/69 H 94/57 L Blood Pressure Mean 99 69 Pulse Ox 97 94 Oxygen Delivery Method Room Air Room Air 06/16/24 18:14 06/16/24 18:26 06/16/24 19:20 Temperature 98.9 F Temperature Source Pulse Rate 63 Respiratory Rate 15 Respiratory Effort Respiratory Pattern Blood Pressure 101/50 L 114/49 L 114/49 L Blood Pressure Mean 67 70 70 Pulse Ox 94 Oxygen Delivery Method MDM <TAMMY Beckham - Last Filed: 06/16/24 19:52> [facility] Narrative Medical decision making narrative: 68-year-old female presents with a history of recurrent falls when both knees gave out. She states this has been ongoing for 6+ months and occurred again today prompting her to call EMS. She denies hitting her head or any injuries and has been ambulatory since the event. She has no other associated symptoms like chest pain or shortness of breath. She is awake alert in no distress with stable vital signs. She has no signs of injury and has a nonfocal neurological exam. CBC shows white count of 11.2 and chronic microcytic anemia of 9.1. Sodium is 132, BUN 31, creatinine 2.15. This is consistent with SALVATORE because about 1 month ago her creatinine was 1.02. She denies any acute volume losses but states she has chronic diarrhea which is unchanged. She states she has normal p.o. intake but has dry mucous membranes on exam and I ordered IV fluids. EKG is nonischemic and troponin is 12. CXR negative. Valproic acid level is in the normal range. Urinalysis shows possible UTI with leukocyte esterase, 10-25 WBCs, and 1+ bacteria but is contaminated with 5-10 epithelial cells. She is not symptomatic so sent for culture. I discussed the case with the hospitalist for admission. Lab Data Attestation: I reviewed the patient's lab results. Labs: Laboratory Results - last 24 hr 06/16/24 06/16/24 17:13 17:30 WBC 11.2 H RBC 3.14 L Hgb 9.1 L Hct 28.1 L MCV 89.5 MCH 29.0 MCHC 32.4 RDW Std Deviation 58.3 H RDW Coeff of Yaw 17.9 H Plt Count 558 H MPV 8.6 Immature Gran % (Auto) 0.600 Neut % (Auto) 73.5 H Lymph % (Auto) 16.5 L [place] % (Auto) 7.2 Eos % (Auto) 1.9 Baso % (Auto) 0.3 Absolute Neuts (auto) 8.2 H Absolute Lymphs (auto) 1.85 Nucleated RBC % 0 Sodium 132 L Potassium 4.4 Chloride 96 L Carbon Dioxide 27.0 Anion Gap 9 BUN 31 H Creatinine 2.15 H Estim Creat Clear Calc 21.85 Est GFR (MDRD) Af Amer 29 L Est GFR (MDRD) Non-Af 24 L BUN/Creatinine Ratio 14.4 Glucose 103 Calcium 8.8 Troponin I High Sens 12 Urine Color Yellow Urine Clarity Cloudy Urine pH 7.0 Ur Specific Bitely 1.005 Urine Protein 30 H Urine Glucose (UA) Normal Urine Ketones Negative Urine Occult Blood 10 H Urine Nitrite Negative Urine Bilirubin 1 H Urine Urobilinogen Normal Ur Leukocyte Esterase 500 H Urine RBC 0-5 SEEN Urine WBC 10-25 SEEN Ur Squamous Epith Cells 5-10 SEEN Urine Bacteria 1+ Fine Granular Casts 5-10 SEEN Urine Mucus 0 SEEN Valproic Acid 21 L Radiography Diagnostic Testing: Clinical Impression(s) from Imaging Studies Chest X-Ray 06/16/24 16:40 IMPRESSION: No radiographic evidence of acute cardiopulmonary disease. Electronically Signed: China Mack MD at 17:08 EST Reading Location ID and State: [facility] / [place] Tel , Service support , ED attending interpretation of 2 view chest x-ray shows normal heart size, no acute infiltrate edema or effusion. <Dr. Canelo Gil, DO - Last Filed: 06/17/24 00:14> [facility] Narrative Medical decision making narrative: 68-year-old female presents with a history of recurrent falls when both knees gave out. She states this has been ongoing for 6+ months and occurred again today prompting her to call EMS. She denies hitting her head or any injuries and has been ambulatory since the event. She has no other associated symptoms like chest pain or shortness of breath. She is awake alert in no distress with stable vital signs. She has no signs of injury and has a nonfocal neurological exam. CBC shows white count of 11.2 and chronic microcytic anemia of 9.1. Sodium is 132, BUN 31, creatinine 2.15. This is consistent with SALVATORE because about 1 month ago her creatinine was 1.02. She denies any acute volume losses but states she has chronic diarrhea which is unchanged. She states she has normal p.o. intake but has dry mucous membranes on exam and I ordered IV fluids. EKG is nonischemic and troponin is 12. CXR negative. Valproic acid level is in the normal range. Urinalysis shows possible UTI with leukocyte es terase, 10-25 WBCs, and 1+ bacteria but is contaminated with 5-10 epithelial cells. She is not symptomatic so sent for culture. I discussed the case with the hospitalist for admission. ED attending note: I evaluated the patient in conjunction with the CAMELIA. I agree with his/her statements and above findings. I have personally performed a face to face assessment of the patient and have reviewed the CAMELIA Note. I performed a substantive portion of the visit including all aspects of the following. I personally saw the patient performed chart review, physical exam, reviewed labs, imaging (if obtained), and formulated a treatment and management plan. I have personally reviewed the patient's chest x-ray. Chest x-ray is unremarkable for pulmonary edema, pneumothorax, pneumonia or focal cardi opulmonary abnormality. This note was generated with [employer] dictation software. It may contain incorrect words, spelling, and punctuation that were not noted in review of the chart prior to signing. Lab Data Labs: Laboratory Results - last 24 hr 06/16/24 06/16/24 17:13 17:30 WBC 11.2 H RBC 3.14 L Hgb 9.1 L Hct 28.1 L MCV 89.5 MCH 29.0 MCHC 32.4 RDW Std Deviation 58.3 H RDW Coeff of Yaw 17.9 H Plt Count 558 H MPV 8.6 Immature Gran % (Auto) 0.600 Neut % (Auto) 73.5 H Lymph % (Auto) 16.5 L [place] % (Auto) 7.2 Eos % (Auto) 1.9 Baso % (Auto) 0.3 Absolute Neuts (auto) 8.2 H Absolute Lymphs (auto) 1.85 Nucleated RBC % 0 Sodium 132 L Potassium 4.4 Chloride 96 L Carbon Dioxide 27.0 Anion Gap 9 BUN 31 H Creatinine 2.15 H Estim Creat Clear Calc 21.85 Est GFR (MDRD) Af Amer 29 L Est GFR (MDRD) Non-Af 24 L BUN/Creatinine Ratio 14.4 Glucose 103 Calcium 8.8 Troponin I High Sens 12 Urine Color Yellow Urine Clarity Cloudy Urine pH 7.0 Ur Specific [place] 1.005 Urine Protein 30 H Urine Glucose (UA) Normal Urine Ketones Negative Urine Occult Blood 10 H Urine Nitrite Negative Urine Bilirubin 1 H Urine Urobilinogen Normal Ur Leukocyte Esterase 500 H Urine RBC 0-5 SEEN Urine WBC 10-25 SEEN Ur Squamous Epith Cells 5-10 SEEN Urine Bacteria 1+ Fine Granular Casts 5-10 SEEN Urine Mucus 0 SEEN Valproic Acid 21 L Radiography Chest X-Ray - ED: Read by ED Physician Diagnostic Testing: Clinical Impression(s) from Imaging Studies Chest X-Ray 06/16/24 16:40 IMPRESSION: No radiographic evidence of acute cardiopulmonary disease. Electronically Signed: China Mack MD at 17:08 EST , Discharge Plan Dx/Rx/DC Orders Clinical Impression: Acute kidney injury, Chronic anemia, Recurrent falls Disposition Disposition: Acute Care Hospital [facility] Discharge Date/Time: 06/16/24 20:24
--- NOTE | 2024-06-16 16:40 | RAD_ITS ---
INDICATION: cough EXAMINATION/TECHNIQUE: X-RAY - XR Chest 2 Views COMPARISON: No relevant prior comparison study available FINDINGS: LINES/DEVICES: None. LUNGS: No consolidation, edema or effusion. No pneumothorax. MEDIASTINUM AND CARDIOVASCULAR STRUCTURES: Cardiac silhouette not enlarged. Central airways and mediastinal contour are unremarkable. BONES AND SOFT TISSUES: Unremarkable. RAD/Chest PA and Lateral IMPRESSION: No radiographic evidence of acute cardiopulmonary disease. Electronically Signed: China Mack MD at 17:08 EST ,
[2024-06-16 17:22] LABS: Absolute Lymphocyte Count 1.85 X10^3/uL (0.83-4.51); Absolute Neutrophil Count 8.2 X10^3/uL (2.0-7.7); Basophil# 0.03 X10^3/uL; Basophil% 0.3 % (0-1); Eosinophil# 0.21 X10^3/uL; Eosinophils% 1.9 % (0-5); Hematocrit 28.1 % (37-47); Hemoglobin 9.1 g/dL (12.0-15.0); Lymphocyte # 1.85 X10^3/ul (0.83-4.51); Lymphocyte % 16.5 % (19-41); Mean Corp Hgb Conc 32.4 g/dL (32-36); Mean Corpuscular Volume 89.5 fL (81-99); Mean Platelet Vol. 8.6 fl (6.2-12.0); Monocyte# 0.81 X10^3/uL; Monocyte% 7.2 % (0-10); NRBC Flagged by Analyzer 0 % (0-5); Neutrophil # 8.21 X10^3/uL (2.7-7.7); Neutrophil % 73.5 % (47-70); Platelet Count 558 K/mm3 (150-450); RBC Distribution Width CV 17.9 % (11.6-14.6); RBC Distribution Width SD 58.3 fl (35.1-43.9); Red Blood Count 3.14 M/mm3 (4.2-5.4); White Blood Count 11.2 K/mm3 (4.4-11.0)
--- NOTE | 2024-06-16 17:27 | EKG12_ITS ---
Test Reason : ARRYTH Blood Pressure : */* mmHG Vent. Rate : 78 BPM Atrial Rate : 78 BPM P-R Int : 174 ms QRS Dur : 92 ms QT Int : 420 ms P-R-T Axes : 70 -59 -13 degrees QTcB Int : 478 ms Sinus rhythm with Premature supraventricular complexes Left axis deviation Nonspecific T wave abnormality Abnormal ECG Confirmed by SHAILA LOPEZ, YENI ([id number]), clinical editor SANDY DORADO ([id number]) on 06/18/2024 6:22:26 AM Referred By: Jailyn Wiggins Confirmed By: YENI LINTON MD
[2024-06-16 17:33] LABS: Mucous, Urine 0 SEEN /hpf (<or=2+)
[2024-06-16 17:35] LABS: Color, Urine Yellow (Yellow); Glucose, Dipstick Normal (Normal); Ketone-Dipstick Negative (Negative); Leukocyte Esterase-Dipstick 500 /ul (Negative); Nitrite-Dipstick Negative (Negative); Occult Blood-Urine 10 /ul (Negative); Protein-Dipstick 30 mg/dl (Negative); Specific Gravity, Urine 1.005 (1.002-1.030); Urine Bilirubin Dipstick 1 mg/dL (Negative); Urine Clarity Cloudy (Clear); Urine Urobilinogen Normal (Normal)
[2024-06-16 17:36] LABS: Anion Gap 9 (5-15); BUN 31 mg/dL (7-18); BUN/Creat Ratio 14.4 RATIO (10-20); Calcium,Total 8.8 mg/dL (8.5-10.1); Chloride 96 mmol/L (98-107); Creatinine, Serum 2.15 mg/dL (0.55-1.02); EST Glomerular Filtration Rate 24 mL/min (>60); Est Glom Filt Rate - Afr Amer 29 mL/min (>60); Estimated Creatinine Clearance 21.85 ml/min; Glucose 103 mg/dL (74-106); Potassium 4.4 mmol/L (3.5-5.1); Sodium Level 132 mmol/L (136-145); Troponin-I HS 12 pg/mL (3.0-54.0)
[2024-06-16 17:43] LABS: White Blood Cells 10-25 SEEN /hpf (0-5)
[2024-06-16 17:44] LABS: Bacteria 1+ /hpf (None Seen); Fine Granular Cast- Urine 5-10 SEEN /lpf (0-5); Red Blood Cells-Urine 0-5 SEEN /hpf (0-5); Squamous Epithelial Cells - UA 5-10 SEEN /hpf (5-10)
[2024-06-16] MEDS: 0.9% Normal Saline (1000mL) 1,000 ML 999 ML IV (18:10)
[2024-06-16 18:16] LABS: Valproic Acid (Depakene) Level 21 ug/mL (50-100)
--- NOTE | 2024-06-16 19:29 | ED.RN ---
Patient's son Dino was contacted per patient's request and given an update. Patient provided with son's number and daughter Lisa's number on paper.
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
[2024-06-16 20:49] LABS: Magnesium 1.4 mg/dL (1.6-2.6); Phosphorus 4.9 mg/dL (2.5-4.9)
[2024-06-16 20:51] LABS: Procalcitonin 0.24 ng/mL (0.00-0.09)
[2024-06-16] MEDS: 0.9% Normal Saline (1000mL) 1,000 ML 100 ML IV (20:58)
[2024-06-16] MEDS: Ceftriaxone 1 GM/50 ML BAG IV (20:59)
[2024-06-16] MEDS: 0.9% Saline Lock 10 ML Syringe IV (21:02)
[2024-06-16 21:03] LABS: Urine Sodium 48 mmol/L (Not Establ.)
[2024-06-16] MEDS: Pantoprazole Sodium 40 MG in 0.9% Normal Saline (100mL MB+) 100 ML 330 MG IV (21:54)
[2024-06-16] MEDS: APIXABAN 5 MG TABLET PO (21:55)
[2024-06-16] MEDS: Divalproex Sodium 125 MG SPRINKLE PO (21:55)
[2024-06-16] MEDS: TICAGRELOR 90 MG TABLET PO (21:55)
[2024-06-16] MEDS: Allopurinol 100 MG Tablet PO (21:55)
[2024-06-16] MEDS: Atorvastatin Calcium 80 MG Tablet PO (21:55)
[2024-06-16] MEDS: Amitriptyline 25 MG Tablet 50 MG PO (21:55)
[2024-06-16] MEDS: Insulin Glargine-YFGN 100 UNIT/ML Pen 50 UNIT SC (22:01)
[2024-06-16] MEDS: Gabapentin 600 MG Tablet PO (22:13)
[2024-06-16 22:32] LABS: Bedside Glucose 118 mg/dL (74-106)
[2024-06-17 00:12] LABS: Bedside Glucose 117 mg/dL (74-106)
[2024-06-17 02:46] VITALS: BP 126/44; PULSE 72; RESP 16; TEMP 36.6; O2SAT 97
[2024-06-17 05:14] VITALS: BMI 29.9
[2024-06-17] MEDS: Levothyroxine 112 MCG Tablet PO (05:15)
[2024-06-17] MEDS: guaiFENesin 10 ML UDC (200MG/10ML) 20 ML PO ×3 (05:16→21:43)
[2024-06-17 06:32] LABS: Bedside Glucose 79 mg/dL (74-106)
[2024-06-17 06:32] LABS: Bedside Glucose 125 mg/dL (74-106)
[2024-06-17 07:17] LABS: Absolute Lymphocyte Count 1.57 X10^3/uL (0.83-4.51); Absolute Neutrophil Count 5.6 X10^3/uL (2.0-7.7); Basophil# 0.03 X10^3/uL; Basophil% 0.4 % (0-1); Eosinophil# 0.24 X10^3/uL; Hematocrit 28.7 % (37-47); Hemoglobin 8.6 g/dL (12.0-15.0); Lymphocyte # 1.57 X10^3/ul (0.83-4.51); Lymphocyte % 19.6 % (19-41); Mean Corpuscular Hgb 27.7 pg (27.0-32.0); Mean Corpuscular Volume 92.3 fL (81-99); Mean Platelet Vol. 8.8 fl (6.2-12.0); Monocyte# 0.53 X10^3/uL; Monocyte% 6.6 % (0-10); NRBC Flagged by Analyzer 0 % (0-5); Neutrophil # 5.58 X10^3/uL (2.7-7.7); Neutrophil % 69.9 % (47-70); Platelet Count 521 K/mm3 (150-450); RBC Distribution Width CV 17.5 % (11.6-14.6); RBC Distribution Width SD 58.4 fl (35.1-43.9); Red Blood Count 3.11 M/mm3 (4.2-5.4)
[2024-06-17 07:30] VITALS: O2SAT 96
[2024-06-17 07:35] VITALS: BP 136/65; PULSE 67; RESP 16; TEMP 36.4; O2SAT 98
[2024-06-17] MEDS: 0.9% Normal Saline (1000mL) 1,000 ML 100 ML IV (07:35)
[2024-06-17 08:03] LABS: ALB/GLOB Ratio 0.8 RATIO (0.9-2.4); AST(SGOT) 13 U/L (15-37); Alanine Aminotransfer ALT/SGPT 16 U/L (13-56); Albumin, Serum 3.1 g/dL (3.2-5.0); Alkaline Phosphatase 99 U/L (45-117); Anion Gap 9 (5-15); BUN 22 mg/dL (7-18); BUN/Creat Ratio 15.5 RATIO (10-20); Calcium,Total 8.1 mg/dL (8.5-10.1); Chloride 102 mmol/L (98-107); Creatinine, Serum 1.42 mg/dL (0.55-1.02); EST Glomerular Filtration Rate 39 mL/min (>60); Est Glom Filt Rate - Afr Amer 47 mL/min (>60); Estimated Creatinine Clearance 32.87 ml/min; Globulin 3.8 g/dL (2.2-4.2); Glucose 132 mg/dL (74-106); Potassium 4.3 mmol/L (3.5-5.1); Protein, Total 6.9 g/dL (6.4-8.2); Sodium Level 134 mmol/L (136-145)
[2024-06-17] MEDS: Isosorbide Mononitrate 30 MG Tablet PO (10:09)
[2024-06-17] MEDS: Pantoprazole Sodium 40 MG in 0.9% Normal Saline (100mL MB+) 100 ML 330 MG IV ×2 (10:09→21:32)
[2024-06-17] MEDS: TICAGRELOR 90 MG TABLET PO ×2 (10:09→21:32)
[2024-06-17] MEDS: APIXABAN 5 MG TABLET PO ×2 (10:09→21:31)
[2024-06-17] MEDS: Carvedilol 6.25 MG Tablet PO ×2 (10:10→17:52)
[2024-06-17] MEDS: Gabapentin 600 MG Tablet PO ×2 (10:10→21:31)
[2024-06-17] MEDS: Colestipol 1 GM TABLET PO (10:10)
[2024-06-17] MEDS: Divalproex Sodium 125 MG SPRINKLE PO ×2 (10:10→21:31)
[2024-06-17 12:44] LABS: Bedside Glucose 93 mg/dL (74-106)
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
[2024-06-17 14:35] VITALS: BP 127/68; PULSE 77; RESP 18; TEMP 37; O2SAT 97
[2024-06-17 16:22] LABS: Bedside Glucose 210 mg/dL (74-106)
--- NOTE | 2024-06-17 17:41 | PN.HOSP_ITS ---
Reason for Visit Reason for Visit: Diagnoses Acute kidney failure, unspecified (06/16/24) Repeated falls (06/16/24) Subjective Subjective Patient was seen and examined today, she states that she has had trouble with ambulating since October of this year, she is scheduled to see a neurologist but canceled the appointment for tomorrow due to the fact she did not have transportation. Patient was seen by physical therapy today, it was recommended that she have further physical therapy but she declined it. Objective Data Objective Data Vital Signs: Vital Signs Temp Pulse Resp BP Pulse Ox O2 Del Method 98.6 F 77 18 127/68 H 97 Room Air 06/17/24 14:35 06/17/24 14:35 06/17/24 14:35 06/17/24 14:35 06/17/24 14:35 06/17/24 14:45 Oxygen Delivery Method Room Air Weight: 67.132 kg Body Mass Index (BMI) 29.9 Intake & Output: Intake and Output for Last 24 Hours 06/15/24 06/16/24 06/17/24 23:59 23:59 23:59 Intake Total 1166.67 / 1166.67 1395 / 1395 Output Total 550 / 550 Balance 1166.67 / 1166.67 845 / 845 Lab / Micro Data 06/17/24 06:52 06/17/24 06:52 Labs: Laboratory Results - last 24 hr 06/16/24 17:30: Urine RBC 0-5 SEEN, Urine WBC 10-25 SEEN, Ur Squamous Epith Cells 5-10 SEEN, Urine Bacteria 1+, Fine Granular Casts 5-10 SEEN, Urine Mucus 0 SEEN, Valproic Acid 21 L 06/16/24 20:17: Phosphorus 4.9, Magnesium 1.4 L, Procalcitonin 0.24 H 06/16/24 20:42: Ur Random Sodium 48, Urine Creatinine 68.50 06/16/24 22:00: POC Glucose 118 H 06/16/24 23:53: POC Glucose 117 H 06/17/24 05:18: POC Glucose 79 06/17/24 06:02: POC Glucose 125 H 06/17/24 06:52: WBC 8.0, RBC 3.11 L, Hgb 8.6 L, Hct 28.7 L, MCV 92.3, MCH 27.7, MCHC 30.0 L D, RDW Std Deviation 58.4 H, RDW Coeff of Yaw 17.5 H, Plt Count 521 H, MPV 8.8, Immature Gran % (Auto) 0.500, Neut % (Auto) 69.9, Lymph % (Auto) 19.6, Dougherty % (Auto) 6.6, Eos % (Auto) 3.0, Baso % (Auto) 0.4, Absolute Neuts (auto) 5.6, Absolute Lymphs (auto) 1.57, Nucleated RBC % 0, Sodium 134 L, Potassium 4.3, Chloride 102, Carbon Dioxide 23.0, Anion Gap 9, BUN 22 H, C reatinine 1.42 H, Estim Creat Clear Calc 32.87, Est GFR (MDRD) Af Amer 47 L, Est GFR (MDRD) Non-Af 39 L, BUN/Creatinine Ratio 15.5, Glucose 132 H, Calcium 8.1 L, Total Bilirubin 0.30, AST 13 L, ALT 16, Alkaline Phosphatase 99, Total Protein 6.9, Albumin 3.1 L, Globulin 3.8, Albumin/Globulin Ratio 0.8 L 06/17/24 12:20: POC Glucose 93 06/17/24 16:00: POC Glucose 210 H Micro: Microbiology 06/16/24 17:30 Urine, Random Urine Culture - Preliminary Gram Positive Cocci 06/16/24 21:05 Mucosa - Nasopharyngeal Coronavirus COVID-19 PCR - Final 06/16/24 21:05 Mucosa - Nasopharyngeal Respiratory Panel (PCR) - Final Physical Exam Const alert, oriented x3 and no apparent distress Constitutional Narrative: Patient appears older than her stated age General Appearance: cooperative, well kempt and well developed Orientation / Consciousness: awake, oriented to person, oriented to place and oriented to time HEENT normocephalic, head/scalp atraumatic and moist oral mucous membranes Eyes PERRL, EOMs intact bilaterally and conjunctivae normal Neck supple, no JVD, thyroid normal and no carotid bruits General: trachea midline Resp normal respiratory effort, no retractions, no use of accessory muscles and clear to auscultation bilaterally Auscultation: Negative for rales, rhonchi or wheezes Cardio regular rate, regular rhythm, S1 normal heart sound, S2 normal heart sound, no murmurs, no rub and no gallops GI normal to inspection, nondistended, normoactive bowel sounds, soft to palpation, non-tender and non-distended Extremity no clubbing, cyanosis or edema Skin no rashes or lesions noted General Skin Exam: no breakdown Neuro oriented x3, CN's II-XII intact bilaterally, moves all extremities, no focal motor deficits and no sensory deficits noted Sensorium / Orientation: awake and alert Speech: speech normal Psych affect normal Assessment & Plan Assessment/Plan (1) Recurrent falls: PLAN: Plan 1. Acute on chronic debility-patient will be seen again tomorrow by physical therapy and Occupational Therapy, again she has refused outpatient physical therapy. #2 acute kidney injury on a backdrop of stage IIIa chronic kidney disease due to diabetes-patient's creatinine today was 1.42, her creatinine will be repeated tomorrow #3 acute cystitis-patient has gram-positive cocci in her urine, identification is pending at this time, I have decided to change the patient over to oral Keflex and stop her Rocephin #4 hypomagnesemia-magnesium will be rechecked, patient will be given supplemental magnesium #5 type 2 diabetes-blood sugars are being monitored, sliding scale insulin will be administered as needed #6 iron deficiency anemia-patient's H&H will be rechecked tomorrow Total clinical time spent by myself addressing the patient's medical issues, reviewing all of her data, and collaborating with patient's care team: 35- minutes Charges/Coding Visit Charges Inpatient E&M: 36767 Subs Hosp L2
[2024-06-17] MEDS: Insulin Lispro 100 UNIT/ML INSULN.PEN SC (17:48)
[2024-06-17] MEDS: Magnesium Sulfate 2 GM in Dextrose 5%-Water (100mL Bag) 100 ML IV (18:46)
[2024-06-17] MEDS: 0.9% Saline Lock 10 ML Syringe IV (18:46)
[2024-06-17 21:21] VITALS: BP 132/70; PULSE 74; RESP 18; TEMP 36.9; O2SAT 96
[2024-06-17] MEDS: Atorvastatin Calcium 80 MG Tablet PO (21:31)
[2024-06-17] MEDS: Allopurinol 100 MG Tablet PO (21:31)
[2024-06-17] MEDS: Amitriptyline 25 MG Tablet 50 MG PO (21:31)
[2024-06-17] MEDS: Insulin Glargine-YFGN 100 UNIT/ML Pen 50 UNIT SC (21:36)
[2024-06-17 23:12] LABS: Bedside Glucose 279 mg/dL (74-106)
[2024-06-18] MEDS: Insulin Lispro 100 UNIT/ML INSULN.PEN SC ×3 (00:41→11:16)
[2024-06-18 01:02] LABS: Bedside Glucose 210 mg/dL (74-106)
[2024-06-18 02:00] VITALS: BP 111/63; PULSE 66; RESP 16; TEMP 36.6; O2SAT 95
[2024-06-18] MEDS: guaiFENesin 10 ML UDC (200MG/10ML) 20 ML PO ×2 (02:03→07:49)
[2024-06-18 05:56] VITALS: BMI 30.2
[2024-06-18] MEDS: Levothyroxine 112 MCG Tablet PO (06:48)
[2024-06-18 07:13] LABS: Bedside Glucose 168 mg/dL (74-106)
[2024-06-18 07:39] VITALS: O2SAT 95
[2024-06-18 07:41] VITALS: BP 151/54; PULSE 65; RESP 16; TEMP 36.8; O2SAT 97
[2024-06-18] MEDS: Isosorbide Mononitrate 30 MG Tablet PO (07:49)
[2024-06-18] MEDS: Colestipol 1 GM TABLET PO (07:49)
[2024-06-18] MEDS: Divalproex Sodium 125 MG SPRINKLE PO (07:50)
[2024-06-18] MEDS: Carvedilol 6.25 MG Tablet PO (07:50)
[2024-06-18] MEDS: TICAGRELOR 90 MG TABLET PO (07:50)
[2024-06-18] MEDS: Cephalexin 500 MG Capsule PO (07:50)
[2024-06-18] MEDS: APIXABAN 5 MG TABLET PO (07:50)
[2024-06-18 09:01] LABS: Anion Gap 10 (5-15); BUN 16 mg/dL (7-18); BUN/Creat Ratio 13.4 RATIO (10-20); Calcium,Total 9.4 mg/dL (8.5-10.1); Chloride 104 mmol/L (98-107); Creatinine, Serum 1.19 mg/dL (0.55-1.02); EST Glomerular Filtration Rate 48 mL/min (>60); Est Glom Filt Rate - Afr Amer 58 mL/min (>60); Estimated Creatinine Clearance 39.44 ml/min; Glucose 145 mg/dL (74-106); Magnesium 1.8 mg/dL (1.6-2.6); Potassium 4.6 mmol/L (3.5-5.1); Sodium Level 136 mmol/L (136-145)
[2024-06-18 09:19] LABS: Hematocrit 27.3 % (37-47); Hemoglobin 8.6 g/dL (12.0-15.0)
[2024-06-18] MEDS: Gabapentin 600 MG Tablet PO (10:25)
[2024-06-18] MEDS: Pantoprazole Sodium 40 MG Tablet PO (10:25)
[2024-06-18 11:32] LABS: Bedside Glucose 200 mg/dL (74-106)
--- NOTE | 2024-06-18 11:48 | PCM.DC ---
Discharge Instructions Diet Discharge Diet: 1800 Calorie Control Diet DC O2, CPAP, BIPAP needs Home O2 Discharge instructions: No Dressing / Incision Discharge Activity: Return to Normal Activity Weight Bearing Status: Full weight bearing Follow Up Care Test Results: Test results from this visit will be discussed in further detail at your follow-up appointment, if applicable. Discharge Plan Admission Admit Date/Time: 06/16/24 19:59 Primary Reason for Your Visit: debility, acute kidney injury Attending Provider: Josesito Paredes Primary Care Provider: Denise Uribe Consulting Providers: Jailyn Wiggins Discharge Orders/Prescriptions Prescriptions: Continued (DME) lancets Misc See Rx Instructions .ROUTE .MEDSUPPLY Qty: 300 0RF Rx Instructions: Check 3 times a day and as needed (DME) TENS 502 Device See Rx Instructions .Route Qty: 1 0RF Rx Instructions: As directed ticagrelor 90 mg tablet 90 mg PO BID insulin lispro [Humalog KwikPen Insulin] 100 unit/mL insulin pen 20 unit subcut TID nitroglycerin [Nitrostat] 0.4 mg tablet, sublingual 0.4 mg sublingual Q5-15M PRN (Reason: chest pain) Qty: 25 3RF Rx Instructions: do not exceed 3 doses per episode (DME) OneTouch Verio test strips Strip See Rx Instructions .ROUTE .MEDSUPPLY Qty: 300 3RF Rx Instructions: Check 3 times a day and as needed (DME) blood-glucose meter [OneTouch Verio Flex meter] [facility] [place] .Route Qty: 1 0RF Rx Instructions: As directed colestipol 1 gram tablet 1 g PO DAILY Qty: 100 2RF amitriptyline 50 mg tablet 50 mg PO QHS Qty: 90 3RF Eliquis 5 mg tablet 5 mg PO BID Qty: 180 3RF atorvastatin 80 mg tablet 80 mg PO QHS Qty: 100 2RF Rx Instructions: cholesterol (DME) pen needle, diabetic [BD Ultra-Fine Sophia Pen Needle] 32 gauge x 5/32 needle See Rx Instructions .Route Qty: 400 3RF Rx Instructions: qid icosapent ethyl [Vascepa] 1 gram capsule 2 g PO BID Qty: 120 5RF albuterol sulfate 90 mcg/actuation HFA aerosol inhaler 2 puff INHALATION Q6H PRN (Reason: Wheezing) Qty: 8.5 6RF allopurinol 100 mg tablet 100 mg PO QHS Qty: 90 11RF nystatin [Nyamyc] 100,000 unit/gram powder 1 applic topical BID PRN (Reason: for infectious disease) Qty: 30 11RF (DME) FreeStyle Marilyn 14 Day Sensor Kit See Rx Instructions .ROUTE .MEDSUPPLY Qty: 6 3RF Rx Instructions: As directed (DME) handicap placard See Rx Instructions .ROUTE .MEDSUPPLY Qty: 1 0RF Rx Instructions: Length of time: 1 years Diagnosis: Impaired physical mobility Z74.09 meclizine 12.5 mg tablet 12.5 - 25 mg PO Q8H PRN PRN (Reason: dizziness) Qty: 30 1RF losartan 50 mg tablet 50 mg PO DAILY Qty: 100 0RF isosorbide mononitrate 30 mg tablet extended release 24 hr 30 mg PO DAILY Qty: 90 3RF insulin glargine [Lantus Solostar U-100 Insulin] 100 unit/mL (3 mL) insulin pen 50 unit subcut QHS Qty: 45 1RF levothyroxine 112 mcg tablet 112 mcg PO MOTUWETHFR Qty: 90 0RF pantoprazole 40 mg tablet,delayed release (DR/EC) 40 mg PO DAILY Qty: 90 0RF gabapentin 600 mg tablet 600 mg PO BID Qty: 60 0RF divalproex 125 mg capsule, delayed rel sprinkle 125 mg PO BID Qty: 60 1RF carvedilol 6.25 mg tablet 6.25 mg PO BID Qty: 180 3RF Rx Instructions: must administer with a meal/food Discontinued triamterene-hydrochlorothiazid 37.5-25 mg tablet 1 tab PO DAILY Qty: 90 0RF Referrals / Follow Up: Denise Uribe MD [Primary Care Provider] - See Referral Note (In 2 weeks) Disposition Disposition (needs filled in before D/C Order can be placed): Home, Self Care
--- NOTE | 2024-06-18 11:52 | CASEMGMT ---
Social Work SW met w/pt, spoke w/her about LW/POA. She does not want to complete the documents at present, but did want information. SW reviewed the documents w/pt, gave her the SW number to call to make an appt to complete the documents as an outpt. Pt states her mother also needs to complete the documents. SW gave daughter two copies, she plans to call to make appointments for she and her mother to complete the documents. No further social service needs anticipated at this time. RJ Argueta
--- NOTE | 2024-06-18 11:58 | DS.PCM_ITS ---
Providers Date of Admission: 06/16/24 Date of Discharge: 06/18/24 Primary Care Physician: Dr. Denise Uribe MD Reason For Visit: FALLS, SALVATORE Diagnosis Discharge Diagnosis (1) Recurrent falls: Status: Acute Code(s): R29.6 - Repeated falls Plan 1. Acute on chronic debility-patient will be seen again tomorrow by physical therapy and Occupational Therapy, again she has refused outpatient physical therapy. #2 acute kidney injury on a backdrop of stage IIIa chronic kidney disease due to diabetes-patient's creatinine today was 1.42, her creatinine will be repeated tomorrow #3 Bacteriuria without the presence of acute cystitis #4 hypomagnesemia-magnesium will be rechecked, patient will be given supplemental magnesium #5 type 2 diabetes-blood sugars are being monitored, sliding scale insulin will be administered as needed #6 iron deficiency anemia-patient's H&H will be rechecked tomorrow Acute cystitis was ruled out Total clinical time spent by myself addressing the patient's medical issues, reviewing all of her data, and collaborating with patient's care team: 35- minutes Medications at Discharge Home Medications lancets #300 ea 01/24/23 nitroglycerin 0.4 mg sublingual tablet (Nitrostat) 0.4 mg sublingual Q5-15M PRN chest pain #25 tabs 10/04/23 blood sugar diagnostic (OneTouch Verio test strips) #300 ea 11/29/23 blood-glucose meter (OneTouch Verio Flex Meter) #1 ea 11/29/23 TENS units (TENS 502 device) #1 ea 12/05/23 colestipol 1 gram tablet 1 g PO DAILY cholesterol #100 tabs 12/05/23 amitriptyline 50 mg tablet 50 mg PO QHS sleep #90 tabs 12/14/23 apixaban 5 mg tablet (Eliquis) 5 mg PO BID blood thinner #180 tabs 01/02/24 atorvastatin 80 mg tablet 80 mg PO QHS Hyperlipidemia #100 tabs 02/05/24 albuterol sulfate 90 mcg/actuation aerosol inhaler 2 puff inhalation Q6H PRN Wheezing #8.5 grams 02/27/24 icosapent ethyl 1 gram capsule (Vascepa) 2 g (2 x 1 gram) PO BID hld #120 caps 02/27/24 pen needle, diabetic 32 gauge x 5/32 (BD Ultra-Fine Sophia Pen Needle) #400 ea 02/27/24 allopurinol 100 mg tablet 100 mg PO QHS gout #90 tabs 03/18/24 nystatin 100,000 unit/gram topical powder (Nyamyc) 1 applic topical BID PRN for infectious disease #30 GMS 03/19/24 ticagrelor 90 mg tablet 90 mg PO BID see 03/20/24 flash glucose sensor (FreeStyle Marilyn 14 Day Sensor kit) #6 ea 03/21/24 handicap placard #1 ea 04/16/24 meclizine 12.5 mg tablet 12.5 - 25 mg (1 - 2 x 12.5 mg) PO Q8H PRN PRN dizziness #30 tabs 04/22/24 losartan 50 mg tablet 50 mg PO DAILY bp #100 TABLETS 05/07/24 isosorbide mononitrate 30 mg tablet,extended release 24 hr 30 mg PO DAILY heart #90 tabs 05/08/24 insulin lispro 100 unit/mL subcutaneous pen (Humalog KwikPen (U-100) Insulin) 20 unit subcut TID dm 05/13/24 insulin glargine 100 unit/mL (3 mL) subcutaneous pen (Lantus Solostar U-100 Insulin) 50 unit (0.5 mL) subcut QHS #45 mL 05/27/24 levothyroxine 112 mcg tablet 112 mcg PO MOTUWETHFR thyroid #90 tabs 05/27/24 pantoprazole 40 mg tablet,delayed release 40 mg PO DAILY gerd #90 tabs 05/27/24 gabapentin 600 mg tablet 600 mg PO BID for neuropathy #60 TABLETS 05/31/24 divalproex 125 mg capsule,delayed release sprinkle 125 mg PO BID bipolar #60 caps 06/02/24 carvedilol 6.25 mg tablet 6.25 mg PO BID #180 tabs 06/06/24 Hospital Course Operations None Procedures None Summary of Care Provided Minutes Spent on Discharge: 31 Hospital Course: This 68-year-old white female was seen in the emergency room at [facility] after complaining of generalized weakness and suffering a mechanical fall at home with no acute injuries. Patient states that she had been falling recently at home, she also stated that she had been having problems walking for several months and was due to see a neurologist as an outpatient for an evaluation. She had a fall with weakness in front of her and he was worried and called the paramedics to bring the patient in for evaluation. Workup in the emergency room included a CBC which showed a white blood cell count of 11.2, hemoglobin was 9.1, chemistry profile was remarkable for creatinine of 2.15 and a BUN of 31, UA revealed 10-25 WBCs, 5-10 squamous epithelial cells and +1 bacteria in the urine. Patient's valproic acid level was low at 21, chest x-ray was unremarkable. Patient was admitted to [place] [address] and seen in consultation by PT and OT, it was recommended the patient continue outpatient physical therapy but the patient refused. Patient was given IV Rocephin for a suspected urinary tract infection, however, the culture of the urine grew out staph epi and I did not feel the patient had a cystitis and so antibiotics were stopped. On 06/18/2024, patient was seen and examined: On examination she appeared in good health and spirits, she does not appear to be in any distress. Vital signs as documented. Skin warm and dry and without overt rashes. Neck without JVD, thyroid appears normal, trachea is midline, neck is supple. Lungs clear, normal air movement was noted. Heart exam notable for regular rhythm, normal sounds and absence of murmurs, rubs or gallops. Abdomen unremarkable and without evidence of organomegaly, masses, or abdominal aortic enlargement, bowel sounds are present in all 4 quadrants, no abdominal tenderness was noted. Extremities nonedematous, no cyanosis was noted, no clubbing was noted. Neuro: Cranial nerves II through XII are grossly intact, no focal motor deficits were noted, sensation to light touch and pinprick is intact, motor exam 5/5 throughout. Psych: Patient is alert and oriented x3, she does not appear anxious or depressed, she does not appear agitated. On 06/18/2024, patient was seen and examined and felt to be in stable condition for discharge home Weight / BMI Weight Weight: 67.9 kg Body Mass Index (BMI) 30.2 ABG / Lab / Microbiology Data 06/18/24 07:46 06/18/24 07:46 Laboratory: Laboratory Results - last 24 hr 06/17/24 21:35: POC Glucose 279 H 06/18/24 00:41: POC Glucose 210 H 06/18/24 06:45: POC Glucose 168 H 06/18/24 07:46: Hgb 8.6 L, Hct 27.3 L, Sodium 136, Potassium 4.6, Chloride 104, Carbon Dioxide 23.0, Anion Gap 10, BUN 16, Creatinine 1.19 H, Estim Creat Clear Calc 39.44, Est GFR (MDRD) Af Amer 58 L, Est GFR (MDRD) Non-Af 48 L, BUN/Creatinine Ratio 13.4, Glucose 145 H, Calcium 9.4, Magnesium 1.8 06/18/24 11:12: POC Glucose 200 H Microbiology: Microbiology 06/16/24 17:30 Urine, Random Urine Culture - Final Staphylococcus epidermidis 06/16/24 21:05 Mucosa - Nasopharyngeal Coronavirus COVID-19 PCR - Final 06/16/24 21:05 Mucosa - Nasopharyngeal Respiratory Panel (PCR) - Final D/C Instructions Discharge Diet: 1800 Calorie Control Diet Weight Bearing Status: Full weight bearing DC O2, CPAP, BIPAP Needs Home O2 Discharge instructions: No Meaningful Use Info Meaningful Use Meaningful Use Diagnoses (Choose all that apply): None applicable Ischemic Stroke Statin Dosing Therapy Reference: STATIN DOSE THERAPY REFERENCE: * Patients > 75 years receive moderate or high dose statin therapy. * Patients 75 years or YOUNGER should receive HIGH intensity statin dose unless contraindicated. You will be required to document reason for non-treatment if statin daily dose does not meet guidelines. HIGH DOSE STATIN THERAPY DAILY Atorvastatin > than or = to 40 mg Rosuvastatin > than or = to 20 mg Amlodipine + Atorvastatin > than or = to 2.5/40 mg Ezetimibe + Simvastatin 10/80 mg Simvastatin 80mg Discharge Plan Admission Admit Date/Time: 06/16/24 19:59 Primary Reason for Your Visit: debility, acute kidney injury Attending Provider: Josesito Paredes Primary Care Provider: Denise Uribe Consulting Providers: Jailyn Wiggins Discharge Orders/Prescriptions Prescriptions: Continued (DME) lancets Misc See Rx Instructions .ROUTE .MEDSUPPLY Qty: 300 0RF Rx Instructions: Check 3 times a day and as needed (DME) TENS 502 Device See Rx Instructions .Route Qty: 1 0RF Rx Instructions: As directed ticagrelor 90 mg tablet 90 mg PO BID insulin lispro [Humalog KwikPen Insulin] 100 unit/mL insulin pen 20 unit subcut TID nitroglycerin [Nitrostat] 0.4 mg tablet, sublingual 0.4 mg sublingual Q5-15M PRN (Reason: chest pain) Qty: 25 3RF Rx Instructions: do not exceed 3 doses per episode (DME) OneTouch Verio test strips Strip See Rx Instructions .ROUTE .MEDSUPPLY Qty: 300 3RF Rx Instructions: Check 3 times a day and as needed (DME) blood-glucose meter [OneTouch Verio Flex meter] Misc See Rx Instructions .Route Qty: 1 0RF Rx Instructions: As directed colestipol 1 gram tablet 1 g PO DAILY Qty: 100 2RF amitriptyline 50 mg tablet 50 mg PO QHS Qty: 90 3RF Eliquis 5 mg tablet 5 mg PO BID Qty: 180 3RF atorvastatin 80 mg tablet 80 mg PO QHS Qty: 100 2RF Rx Instructions: cholesterol (DME) pen needle, diabetic [BD Ultra-Fine Sophia Pen Needle] 32 gauge x 5/32 needle See Rx Instructions .Route Qty: 400 3RF Rx Instructions: qid icosapent ethyl [Vascepa] 1 gram capsule 2 g PO BID Qty: 120 5RF albuterol sulfate 90 mcg/actuation HFA aerosol inhaler 2 puff INHALATION Q6H PRN (Reason: Wheezing) Qty: 8.5 6RF allopurinol 100 mg tablet 100 mg PO QHS Qty: 90 11RF nystatin [Nyamyc] 100,000 unit/gram powder 1 applic topical BID PRN (Reason: for infectious disease) Qty: 30 11RF (DME) FreeStyle Marilyn 14 Day Sensor Kit See Rx Instructions .ROUTE .MEDSUPPLY Qty: 6 3RF Rx Instructions: As directed (DME) handicap placard See Rx Instructions .ROUTE .MEDSUPPLY Qty: 1 0RF Rx Instructions: Length of time: 1 years Diagnosis: Impaired physical mobility Z74.09 meclizine 12.5 mg tablet 12.5 - 25 mg PO Q8H PRN PRN (Reason: dizziness) Qty: 30 1RF losartan 50 mg tablet 50 mg PO DAILY Qty: 100 0RF isosorbide mononitrate 30 mg tablet extended release 24 hr 30 mg PO DAILY Qty: 90 3RF insulin glargine [Lantus Solostar U-100 Insulin] 100 unit/mL (3 mL) insulin pen 50 unit subcut QHS Qty: 45 1RF levothyroxine 112 mcg tablet 112 mcg PO MOTUWETHFR Qty: 90 0RF pantoprazole 40 mg tablet,delayed release (DR/EC) 40 mg PO DAILY Qty: 90 0RF gabapentin 600 mg tablet 600 mg PO BID Qty: 60 0RF divalproex 125 mg capsule, delayed rel sprinkle 125 mg PO BID Qty: 60 1RF carvedilol 6.25 mg tablet 6.25 mg PO BID Qty: 180 3RF Rx Instructions: must administer with a meal/food Discontinued triamterene-hydrochlorothiazid 37.5-25 mg tablet 1 tab PO DAILY Qty: 90 0RF Referrals / Follow Up: Denise Uribe MD [Primary Care Provider] - 07/10/24 8:00 am (In 2 weeks) Disposition Disposition (needs filled in before D/C Order can be placed): Home, Self Care Charges/Coding Visit Charges Inpatient E&M: 40765 Disch Hosp >30min
[2024-06-18 12:42] VITALS: BP 147/80; PULSE 69; TEMP 37; O2SAT 96
== END 2024-06-18 13:08 | disposition home or self-care (01) | DRG 683 ==
LOC: ED 17:02 → MS3 20:09
PROVIDERS: Physician Assistant; Admitting Provider Family Medicine; Emergency Provider Emergency Medicine; PCP Internal Medicine; Referring Provider Family Medicine; Visit Provider Internal Medicine
DX: N17.9 Acute kidney failure, unspecified (principal); K56.0 Paralytic ileus; E87.1 Hypo-osmolality and hyponatremia; E11.22 Type 2 diabetes mellitus with diabetic chronic kidney disease; D50.9 Iron deficiency anemia, unspecified; B96.89 Other specified bacterial agents as the cause of diseases classified elsewhere; F31.9 Bipolar disorder, unspecified; N18.31 Chronic kidney disease, stage 3a; E03.9 Hypothyroidism, unspecified; I12.9 Hypertensive chronic kidney disease with stage 1 through stage 4 chronic kidney disease, or unspecified chronic kidney disease; E66.9 Obesity, unspecified; I48.0 Paroxysmal atrial fibrillation; E11.42 Type 2 diabetes mellitus with diabetic polyneuropathy; F17.210 Nicotine dependence, cigarettes, uncomplicated; M10.9 Gout, unspecified; K21.9 Gastro-esophageal reflux disease without esophagitis; I25.10 Atherosclerotic heart disease of native coronary artery without angina pectoris; Z79.4 Long term (current) use of insulin; E78.5 Hyperlipidemia, unspecified; I25.84 Coronary atherosclerosis due to calcified coronary lesion; W19.XXXA Unspecified fall, initial encounter; E87.8 Other disorders of electrolyte and fluid balance, not elsewhere classified; E83.42 Hypomagnesemia; Z79.890 Hormone replacement therapy; Z90.710 Acquired absence of both cervix and uterus; Z82.5 Family history of asthma and other chronic lower respiratory diseases; Z95.5 Presence of coronary angioplasty implant and graft; Z79.85 Long-term (current) use of injectable non-insulin antidiabetic drugs; Z79.01 Long term (current) use of anticoagulants; Z91.048 Other nonmedicinal substance allergy status; R09.82 Postnasal drip; R39.14 Feeling of incomplete bladder emptying; Z68.30 Body mass index [BMI] 30.0-30.9, adult; R29.6 Repeated falls; Z53.20 Procedure and treatment not carried out because of patient's decision for unspecified reasons
CPT/HCPCS: 36415; 71046; 80048; 80053; 80164; 81001; 82570; 82962; 83735; 84100; 84145; 84300; 84484; 85014; 85018; 85025; 87086; 87088; 87186; 87633; 87635; 93005; 94668; 97162; 97166; 97530; 99285; 99406; A4216

== ENCOUNTER → 2024-07-24 | Outpatient (CLI) | payer MEDICARE, MEDICAID, SELFPAY ==
[2020-06-04 12:24] VITALS: BMI 26.4
[2024-07-24 15:16] LABS: Absolute Lymphocyte Count 2.18 X10^3/uL (0.83-4.51); Basophil# 0.05 X10^3/uL; Basophil% 0.4 % (0-1); Eosinophil# 0.25 X10^3/uL; Eosinophils% 2.2 % (0-5); Hematocrit 25.9 % (37-47); Hemoglobin 8.1 g/dL (12.0-15.0); Lymphocyte # 2.18 X10^3/ul (0.83-4.51); Lymphocyte % 19.2 % (19-41); Mean Corp Hgb Conc 31.3 g/dL (32-36); Mean Corpuscular Hgb 27.7 pg (27.0-32.0); Mean Corpuscular Volume 88.7 fL (81-99); Mean Platelet Vol. 9.3 fl (6.2-12.0); NRBC Flagged by Analyzer 0.2 % (0-5); Neutrophil # 7.95 X10^3/uL (2.7-7.7); Platelet Count 541 K/mm3 (150-450); RBC Distribution Width CV 17.5 % (11.6-14.6); RBC Distribution Width SD 56.3 fl (35.1-43.9); Red Blood Count 2.92 M/mm3 (4.2-5.4); White Blood Count 11.4 K/mm3 (4.4-11.0)
[2024-07-24 15:51] LABS: ALB/GLOB Ratio 1.2 RATIO (0.9-2.4); AST(SGOT) 19 U/L (<=31); Alanine Aminotransfer ALT/SGPT 7 U/L (<=34); Alkaline Phosphatase 123 U/L (35-104); Anion Gap 15 (5-15); BUN 19 mg/dL (4-19); BUN/Creat Ratio 16.4 RATIO (10-20); Carbon Dioxide 23.7 mmol/L (21.0-32.0); Chloride 93 mmol/L (98-108); Creatinine, Serum 1.16 mg/dL (0.70-1.20); EST Glomerular Filtration Rate 51 (>60); Ferritin 19 ng/mL (22-378); Globulin 3.3 g/dL (2.2-4.2); Glucose 196 mg/dL (70-99); Iron 34 ug/dL (50-170); Iron Binding Capacity,Total 449 ug/dL (250-450); Iron Binding Capacity,Unsat 415 ug/dL (228-428); Potassium 4.5 mmol/L (3.3-5.1); Protein, Total 7.3 g/dL (5.9-8.4); Sodium Level 132 mmol/L (133-145); Total Bilirubin 0.28 mg/dL (0.00-1.30); Vitamin B12 639 pg/mL (180-914); Vitamin D,25 Hydroxy 24.4 ng/mL (30-100)
== END | disposition home or self-care (01) ==
LOC: BIMLAB 12:36
PROVIDERS: PCP Internal Medicine; Referring Provider Internal Medicine; Visit Provider Internal Medicine
DX: E55.9 Vitamin D deficiency, unspecified (principal); R42 Dizziness and giddiness; D64.9 Anemia, unspecified; E87.1 Hypo-osmolality and hyponatremia; N17.9 Acute kidney failure, unspecified; N18.9 Chronic kidney disease, unspecified
CPT/HCPCS: 36415; 80053; 82306; 82607; 82728; 83540; 83550; 85025

== ENCOUNTER 2024-08-07 12:43 | Outpatient (CLI) | payer MEDICARE, MEDICAID, SELFPAY ==
[2020-06-04 12:24] VITALS: BMI 26.4
[2024-08-07 13:06] VITALS: BP 100/54; PULSE 89; RESP 16; TEMP 36.5; O2SAT 99; BMI 32.3
[2024-08-07] MEDS: Sodium Ferric Gluconat/Sucrose 125 MG in 0.9% Normal Saline (100mL Bag) 100 ML 110 MG IV (13:17)
[2024-08-07] MEDS: 0.9% Normal Saline (100mL Bag) 100 ML 15 ML IV (13:19)
[2024-08-07] MEDS: 0.9% NaCl Peripheral Flush Adult IV (13:19)
[2024-08-07 14:55] VITALS: BP 109/52; PULSE 62; RESP 16; TEMP 36.8; O2SAT 96
== END 2024-08-07 23:59 | disposition home or self-care (01) ==
LOC: MEDOUTP 12:48
PROVIDERS: PCP Internal Medicine; Referring Provider Internal Medicine; Visit Provider Internal Medicine
DX: D50.9 Iron deficiency anemia, unspecified (principal)
CPT/HCPCS: 96365; A4216; J2916

== ENCOUNTER 2024-09-17 17:04 | Inpatient (IN) | payer MEDICARE, MEDICAID, SELFPAY ==
[2020-06-04 12:24] VITALS: BMI 26.4
[2024-09-17 17:05] VITALS: BP 118/79; PULSE 84; RESP 16; TEMP 36.7; O2SAT 99
--- NOTE | 2024-09-17 18:53 | EDS_ITS ---
HPI HPI - GI History of Present Illness Chief Complaint: Abd Pain Informant: patient Abdominal Pain/Flank Pain Onset: Today Context: Sudden Onset Timing: Continuous Quality: Aching Location: Diffuse Worsened by: Nothing Relieved by: Nothing Nausea/Vomiting/Emesis GI Symptom: Positive for Nausea; Negative for Vomiting Diarrhea/Melena/Hematochezia GI Symptom: Positive for Diarrhea; Negative for Melena or Hematochezia Associated Symptoms Associated Symptoms: Negative for Dysuria, Frequency or Hematuria Narrative Narrative: Patient presents with abdominal pain that began today. Patient states it began rather suddenly. Patient states it is constant. Patient describes it as aching. Patient states her pain is diffuse across her abdomen. Patient states nothing makes it better nothing makes it worse. Patient admits to some nausea but denies any vomiting. Patient admits to some diarrhea but denies any melena or hematochezia. Patient denies any dysuria, frequency, or hematuria. Patient denies any fevers or chills. Patient does admit to a mild cough. 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 GFR 30-59 Fibromyalgia affecting multiple sites Shoulder pain, bilateral Hip pain, bilateral Tachybradycardia syndrome Near syncope Generalized OA Atherosclerotic heart disease of [place] coronary artery without angina pectoris Abnormal stress test Hypertension Chronic pancreatic insufficiency Depression Home Medications ?Medication ?Instructions ?Recorded ?Last Taken ?Type lancets #300 ea 01/24/23 Unknown Rx nitroglycerin 0.4 mg sublingual 0.4 mg sublingual Q5-1 5M PRN chest 10/04/23 Unknown Rx tablet (Nitrostat) pain #25 tabs blood sugar diagnostic (OneTouch #300 ea 11/29/23 Unkn own Rx Verio test strips) blood-glucose meter (OneTouch #1 ea 11/29/23 Unknown R x Verio Flex Meter) TENS units (TENS 502 device) #1 ea 12/05/23 Unknown Rx amitriptyline 50 mg tablet 50 mg PO QHS sleep #90 tabs 12/14/23 05/12/24 Rx icosapent ethyl 1 gram capsule 2 g (2 x 1 gram) PO BID hld #120 02/27/24 05/12/24 Rx (Vascepa) caps pen needle, diabetic 32 gauge x #400 ea 02/27/24 Unkno wn Rx (BD Ultra-Fine Sophia Pen Needle) allopurinol 100 mg tablet 100 mg PO QHS gout #90 tabs 03/18/24 05/12/24 Rx nystatin 100,000 unit/gram topical 1 applic topical BI D PRN for 03/19/24 05/12/24 Rx powder ([facility]) infectious disease #30 GMS flash glucose sensor (FreeStyle #6 ea 03/21/24 Unknown Rx Marilyn 14 Day Sensor kit) handicap placard #1 ea 04/16/24 Unknown Rx insulin lispro 100 unit/mL 20 unit subcut TID dm 05/1305/12/24 History subcutaneous pen (Humalog KwikPen (U-100) Insulin) insulin glargine 100 unit/mL (3 50 unit (0.5 mL) subcu t QHS #45 mL 05/27/24 Unknown Rx mL) subcutaneous pen (Lantus Solostar U-100 Insulin) carvedilol 6.25 mg tablet 6.25 mg PO BID #180 tabs Unknown Rx meclizine 12.5 mg tablet 12.5 - 25 mg (1 - 2 x 12.5 m g) PO 06/21/24 Unknown Rx Q8H PRN PRN dizziness #30 tabs losartan 50 mg tablet 50 mg PO DAILY bp #84 TABLET S 07/14/24 Unknown Rx divalproex 125 mg capsule,delayed 125 mg PO BID bipola r #56 caps 07/15/24 Unknown Rx release sprinkle rabeprazole 20 mg tablet,delayed 20 mg PO QDAY #30 tab s 07/24/24 Unknown Rx release (AcipHex) gabapentin 600 mg tablet 600 mg PO BID for neuropathy #60 08/20/24 Unknown Rx TABLETS ticagrelor 90 mg tablet 90 mg PO BID #180 tabs 08/21 Unknown Rx atorvastatin 80 mg tablet 80 mg PO QHS Hyperlipidemia #100 09/03/24 Unknown Rx tabs colestipol 1 gram tablet 1 g PO DAILY cholesterol #10 0 tabs 09/03/24 Unknown Rx levothyroxine 112 mcg tablet 112 mcg PO MOTUWETHFR thy roid #90 09/03/24 Unknown Rx tabs albuterol sulfate 90 mcg/actuation 2 puff inhalation Q 6H PRN Wheezing 09/05/24 Unknown Rx aerosol inhaler #8.5 grams apixaban 5 mg tablet (Eliquis) 5 mg PO BID blood thinn er #180 tabs 09/11/24 Unknown Rx Allergy/AdvReac Type Severity Reaction Status Date / Time duloxetine (From Cymbalta) Allergy Itching Verified 09/17/24 17:10 Environmental Allergies: Allergy Cough Verified 09/17/24 17:10 Uncoded tomato Allergy Itching Verified 09/17/24 17:10 diphenhydramine (From AdvReac Severe other Verified 09/17/24 17:10 Benadryl) isosorbide AdvReac Intermediate Other Verified 09/17/24 17:10 adhesive tape (plastic tape) AdvReac Rash Verified 09/17/24 17:10 semaglutide (From Ozempic) AdvReac Diarrhea Verified 09/17/24 17:10 Family History Sister COPD (chronic obstructive pulmonary disease) Mother COPD (chronic obstructive pulmonary disease) Hypertension Alzheimer's dementia without behavioral disturbance Father Diabetes Hypertension Myocardial infarction Parkinsons disease Surgical History History of surgical procedure History of laparoscopic appendectomy History of total abdominal hysterectomy Hx of cholecystectomy Hx of shoulder surgery Presence of stent in coronary artery (~09/06/21) Social History household members: family current occupational status: retired 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 Smoking Status: Current every day smoker tobacco type: cigarettes Electronic Cigarette Use: not used alcohol intake: never substance use type: does not use caffeine: No what type of physical activity do you participate in: none do you feel safe at home: Yes ROS ROS ED Constitutional Constitutional ED: Denies chills or fever(s) Eyes Eyes: Denies blurry vision or change in vision ENT ENT ED: Denies rhinorrhea or sore throat Cardiovascular Cardiovascular: Denies chest pain or palpitations Respiratory/Chest Respiratory/Chest: Denies cough or dyspnea Gastrointestinal Gastrointestinal: Reports abdominal pain, diarrhea and nausea; Denies melena or vomiting Genitourinary Genitourinary ED: Denies dysuria or hematuria Musculoskeletal Musculoskeletal: Denies back pain or neck pain Integumentary Denies abscess or rash Neurologic Neurologic: Denies headache(s) or weakness Allergic/Immunologic Allergic/Immunologic ED: Denies mouth swelling or urticaria EXAM Physical Exam Const Vital Signs: 09/17/24 17:05 09/17/24 19:04 09/17/24 21:00 Temperature 98.1 F Temperature Source Oral Pulse Rate 84 69 68 Respiratory Rate 16 18 16 Blood Pressure 118/79 123/74 H 129/78 H Blood Pressure Mean 92 90 95 Pulse Ox 99 99 97 Oxygen Delivery Method Room Air Room Air Room Air 09/17/24 22:26 Temperature 98 F Temperature Source Pulse Rate 76 Respiratory Rate 16 Blood Pressure 126/75 H Blood Pressure Mean 92 Pulse Ox 95 Oxygen Delivery Method Positive well nourished and well developed Constitutional Narrative: BMI is 30.9 General Appearance ED: well developed and NAD HEENT Reports dry mucous membranes Mouth ED: Yes dry mucous membranes Mouth: dry mucous membranes Neck supple and no JVD Resp normal respiratory effort and clear to auscultation bilaterally Cardio regular rate and regular rhythm GI Inspection: abdominal distention Palpation: soft and tender epigastric, LLQ, RLQ, LUQ, RUQ, periumbilical and suprapubic; Negative for guarding or rebound tenderness present Extremity full ROM Neuro CN's II-XII intact bilaterally, moves all extremities and no sensory deficits noted Sensorium / Orientation: alert, oriented to person, oriented to place and oriented to time Motor Exam: strength 5/5 throughout Psych mental status grossly normal MDM MDM MDM Narrative Medical decision making narrative: Differential diagnose includes diabetic ketoacidosis, hyperosmolar hyperglycemic nonketotic state, bowel obstruction, perforation, dehydration, electrolyte abnormality, urinary tract infection, and viral illness. CT scan of the abdomen and pelvis will be obtained to assess for bowel obstruction and perforation. CBC will be obtained to assess for leukocytosis and anemia. Comprehensive metabolic profile will be obtained to assess for hepatic function, renal function, and electrolyte abnormality. Serum lactate will be obtained to assess for sepsis. Lipase will be obtained to assess for pancreatitis. Beta hydroxybutyrate will be obtained to assess for diabetic ketoacidosis. Arterial blood gas will be obtained to assess for acidosis. Urinalysis will be obtained to assess for urinary tract infection and hematuria. History & Record Review Additional record(s) reviewed:: Prior labs Lab Data Attestation: I reviewed the patient's lab results. Lab results narrative: CBC was reviewed. There is a leukocytosis of 16.7. Platelets were elevated at 716. The remainder is within normal limits. PT with INR and PTT were reviewed and were within normal limits. Comprehensive metabolic profile was reviewed. Sodium was low at 122, potassium was elevated at 5.7, chloride was low at 86, and CO2 was slightly low at 19.6. Anion gap was slightly elevated at 17. BUN was elevated at 36 and creatinine was slightly elevated at 1.74. Urinalysis was reviewed. There is no evidence of urinary tract infection or hematuria. Serum lactate was reviewed and was elevated at 2.7. Labs: Laboratory Results - last 24 hr 09/17/24 09/17/24 09/17/24 19:00 19:40 21:30 WBC 16.7 H RBC 4.75 Hgb 13.0 Hct 40.4 MCV 85.1 MCH 27.4 MCHC 32.2 RDW Std Deviation 58.6 H RDW Coeff of Yaw 18.7 H Plt Count 716 H MPV 8.9 Immature Gran % (Auto) 0.500 Neut % (Auto) 87.3 H Lymph % (Auto) 7.7 L [place] % (Auto) 3.6 Eos % (Auto) 0.5 Baso % (Auto) 0.4 Absolute Neuts (auto) 14.5 H Absolute Lymphs (auto) 1.29 Nucleated RBC % 0 PT 13.4 INR 1.0 APTT 25.4 Sodium 122 L Potassium 5.7 H Chloride 86 L Carbon Dioxide 19.6 L Anion Gap 17 H BUN 36 H Creatinine 1.74 H Estim Creat Clear Calc 26.90 L Est GFR (MDRD) Non-Af 32 L BUN/Creatinine Ratio 20.5 H Glucose 321 H Lactic Acid 2.7 H* Calcium 10.5 Total Bilirubin 0.40 AST 19 ALT 19 Alkaline Phosphatase 160 H Total Protein 9.4 H Albumin 5.0 H Globulin 4.4 H Albumin/Globulin Ratio 1.1 Lipase 37 b-Hydroxybutyric mmol/L 0.1 Urine Color Yellow Urine Clarity Clear Urine pH 6.0 Ur Specific [place] 1.015 Urine Protein 30 H Urine Glucose (UA) 100 H Urine Ketones Negative Urine Occult Blood Negative Urine Nitrite Negative Urine Bilirubin Negative Urine Urobilinogen Normal Ur Leukocyte Esterase Negative Urine RBC 0-5 SEEN Urine WBC 0-5 SEEN Ur Squamous Epith Cells 5-10 SEEN Urine Bacteria 0 SEEN Urine Mucus 0 SEEN ABG Data Attestation: I personally reviewed and interpreted this ABG as follows: Interpretation: Arterial blood gas was obtained and showed a pH of 7.266. pCO2 was 39. pO2 was 79.7. Bicarb was 17.7, and oxygen saturation was 93.9% on room air. ABG results: ABG 09/17/24 19:43 Specimen Type ART Sample Site L Radial pH 7.27 L Bicarbonate Actual 17.7 L Total CO2 19 Base Excess -9 L O2 Saturation 94 L ABG pCO2 39.0 ABG pO2 80 Daniel Test Positive O2 Delivery Device Room Air Vent Mode Not entered Radiography Diagnostic Testing: Clinical Impression(s) from Imaging Studies Abdomen/Pelvis CT 09/17/24 19:04 IMPRESSION: Recurrent mild partial small bowel obstruction. Transition point is not identified. No CT evidence of ischemia or perforation. Reading Location: [facility] CT scan of the abdomen pelvis was obtained. There is a recurrent mild partial small bowel obstruction. The transition point was not identified. There is no evidence of ischemia or perforation. This was interpreted by the radiologist and was also independently reviewed by myself. Management Discussion w/another healthcare provider: Hospitalist and Cosmetic Sales Consultant Treatment and Re-Evaluation :: Patient was given IV fluids. Patient was given injection of insulin here. Patient was advised of her findings. Patient was advised of the need for hospitalization. Patient is agreeable with this. Patient case was discussed w ith the hospitalist. She recommended placing an NG tube and consulting general surgery. Case was discussed with Dr. Butler from general surgery. He is agreeable with this. Patient is refusing the NG tube placement. Patient will be admitted to PCU. Patient understood and was agreeable with the plan. All questions were answered. Discharge Plan Dx/Rx/DC Orders Clinical Impression: Partial small bowel obstruction, Hyponatremia, Hyperglycemia, Hyperkalemia, Lactic acidosis Disposition Disposition: [facility]
[2024-09-17 19:02] VITALS: BMI 30.9
[2024-09-17 19:04] VITALS: BP 123/74; PULSE 69; RESP 18; O2SAT 99
--- NOTE | 2024-09-17 19:04 | CT_ITS ---
PROCEDURE: ABDOMEN/PELVIS W IV CONT ONLY 09/17/2024 REASON FOR EXAM: PAIN TECHNIQUE: Abdomen and pelvis CT with intravenous contrast. Coronal and Sagittal reconstruction series were provided. PATIENT PREPARATION: Per protocol ORAL CONTRAST TYPE: None. AMOUNT: mL One or more dose reduction techniques were used (e.g., Automated exposure control, adjustment of the mA and/or kV according to patient size, use of iterative reconstruction technique. COMPARISON: 05/13/2024 FINDINGS: Lung bases: Lung bases are clear. Liver: Normal size. No mass. Gallbladder: Surgically absent. Spleen: Normal size. Pancreas: Normal size without evidence of mass surrounding inflammation or ductal dilation. Adrenals: Unremarkable. Kidneys: Normal renal sizes. No hydronephrosis. Bladder: Unremarkable. Reproductive Organs: Unremarkable. Bowel: Mildly dilated air-filled and fluid-filled small bowel similar to the prior study consistent with a recurrent mild small-bowel obstruction. However, of the transition point is not clearly identified. This involves virtually the entire small bowel. No bowel wall thickening or pneumatosis to suggest ischemia. No pneumoperitoneum to suggest perforation. Appendix: The appendix is not identified. There is no inflammatory process identified in the right lower quadrant to suggest appendicitis. Lymph nodes: Unremarkable. Vasculature: Mild diffuse atherosclerotic calcifications are noted. Peritoneum / Retroperitoneum: Unremarkable. Bones: Unremarkable. CT/Abdomen/Pelvis W IV Cont ONLY IMPRESSION: Recurrent mild partial small bowel obstruction. Transition point is not identi fied. No CT evidence of ischemia or perforation. Reading Location: [id number]
[2024-09-17 19:29] LABS: Absolute Lymphocyte Count 1.29 X10^3/uL (0.83-4.51); Absolute Neutrophil Count 14.5 X10^3/uL (2.0-7.7); Basophil# 0.07 X10^3/uL; Basophil% 0.4 % (0-1); Eosinophil# 0.09 X10^3/uL; Eosinophils% 0.5 % (0-5); Hematocrit 40.4 % (37-47); Lymphocyte # 1.29 X10^3/ul (0.83-4.51); Lymphocyte % 7.7 % (19-41); Mean Corp Hgb Conc 32.2 g/dL (32-36); Mean Corpuscular Hgb 27.4 pg (27.0-32.0); Mean Corpuscular Volume 85.1 fL (81-99); Mean Platelet Vol. 8.9 fl (6.2-12.0); Monocyte% 3.6 % (0-10); NRBC Flagged by Analyzer 0 % (0-5); Neutrophil # 14.52 X10^3/uL (2.7-7.7); Neutrophil % 87.3 % (47-70); Platelet Count 716 K/mm3 (150-450); RBC Distribution Width CV 18.7 % (11.6-14.6); RBC Distribution Width SD 58.6 fl (35.1-43.9); Red Blood Count 4.75 M/mm3 (4.2-5.4); White Blood Count 16.7 K/mm3 (4.4-11.0)
[2024-09-17 19:37] LABS: Prothrombin Time (Protime)PT. 13.4 SECONDS (11.7-14.9)
[2024-09-17 19:38] LABS: Partial Thromboplast Time 25.4 Seconds (24.1-36.2)
[2024-09-17 19:47] LABS: Allen Test Positive; Base Excess -9 mmol/L (-2 to +2); Bicarbonate 17.7 mmol/L (22-26); Blood Gas Specimen Type ART; Mode Not entered; O2 Delivery Device Room Air; PO2 80 mmHG (75-100); SITE L Radial; SO2 94 % (95-99); Total Carbon Dioxide 19 mmol/L; pH 7.27 (7.35-7.45)
[2024-09-17 19:56] LABS: ALB/GLOB Ratio 1.1 RATIO (0.9-2.4); AST(SGOT) 19 U/L (<=31); Alanine Aminotransfer ALT/SGPT 19 U/L (<=34); Alkaline Phosphatase 160 U/L (35-104); Anion Gap 17 (5-15); BETA-HYDROXYBUTYRATE 0.1 mmol/L (0.0-0.3); BUN 36 mg/dL (4-19); BUN/Creat Ratio 20.5 RATIO (10-20); Calcium,Total 10.5 mg/dL (7.6-11.0); Carbon Dioxide 19.6 mmol/L (21.0-32.0); Chloride 86 mmol/L (98-108); Creatinine, Serum 1.74 mg/dL (0.70-1.20); EST Glomerular Filtration Rate 32 (>60); Globulin 4.4 g/dL (2.2-4.2); Glucose 321 mg/dL (70-99); Lipase 37 U/L (13-75); Potassium 5.7 mmol/L (3.3-5.1); Protein, Total 9.4 g/dL (5.9-8.4); Sodium Level 122 mmol/L (133-145)
[2024-09-17 20:36] LABS: Lactic Acid 2.7 mmol/L (0.0-2.0)
[2024-09-17 21:00] VITALS: BP 129/78; PULSE 68; RESP 16; O2SAT 97
[2024-09-17 21:38] LABS: Bacteria 0 SEEN /hpf (None Seen); Mucous, Urine 0 SEEN /hpf (<or=2+)
[2024-09-17 21:40] LABS: Color, Urine Yellow (Yellow); Glucose, Dipstick 100 mg/dl (Normal); Ketone-Dipstick Negative (Negative); Leukocyte Esterase-Dipstick Negative /ul (Negative); Nitrite-Dipstick Negative (Negative); Occult Blood-Urine Negative /ul (Negative); Protein-Dipstick 30 mg/dl (Negative); Specific Gravity, Urine 1.015 (1.002-1.030); Urine Bilirubin Dipstick Negative (Negative); Urine Clarity Clear (Clear); Urine Urobilinogen Normal (Normal)
[2024-09-17 21:48] LABS: Red Blood Cells-Urine 0-5 SEEN /hpf (0-5); Squamous Epithelial Cells - UA 5-10 SEEN /hpf (5-10); White Blood Cells 0-5 SEEN /hpf (0-5)
[2024-09-17] MEDS: 0.9% Normal Saline (1000mL) 1,000 ML 999 ML IV (22:19)
--- NOTE | 2024-09-17 22:19 | PCM.HP.STD ---
HPI - General General Date of Admission: 09/17/24 Date of Service: 09/17/24 Chief Complaint: Abdominal pain HPI Narrative The patient is a 69 y/o F w/ PMHx: HTN, HLD, Hypothyroidism, Tobacco use, Obesity, Diabetes mellitus type II with chronic neuropathy, PAF, CAD s/p PCI, CKD stage III unclear subtype, Gout, Anxiety and Depression/Bipolar disorder, GERD who presents to the [facility] ED on 09/17/2024 with history of onset abdominal discomfort, generalized, cramping and aching as well as intermittent sharp stabbing rated 8-9 out of 10 in severity starting on day of presentation with poor oral intake reportedly not eating or drinking anything with associated nausea but no emesis in addition to persistent watery diarrhea which has not abated with no fevers or chills. She denies any recent antibiotic therapy. Workup in the ED included T98.1, heart rate 84, BP 118/79, respiratory rate 16, 99% on room air, most recent repeat vitals heart rate 68, BP 129/78, respiratory rate 16, 97% on room air, CBC with WBC 16.7, hemothirteen, platelets 716 with left shift, unremarkable coags, ABG with pH 7.27, bicarb 17.7, [id number], PO280 on room air, CMP with sodium 122, potassium 5.7, chloride 86, carbon oxide 19.6, anion gap 17, BUN/creatinine 36/1.74, GFR 32, lactic acid 2.7, glucose 321, hepatic profile with alk phos 160, hydroxybutyrate 0.1, urinalysis unremarkable, CT abdomen and pelvis with recurrent mild partial small bowel obstruction with no transition point identified. ED discussed with general surgery. In the ED patient administered 2 L normal saline as well as insulin lispro 10 units subcu x 1. Patient declined NG tube placement in the ED. [facility] Medical History Recurrent falls Chronic anemia Acute kidney injury Bipolar disorder Umbilical hernia Hypothyroidism Hiatal hernia Gout Essential hypertension Atrial fibrillation Overweight (BMI 25.0-29.9) Polyneuropathy due to type 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 GFR 30-59 Fibromyalgia affecting multiple sites Shoulder pain, bilateral Hip pain, bilateral Tachybradycardia syndrome Near syncope Generalized OA Atherosclerotic heart disease of [place] coronary artery without angina pectoris Abnormal stress test Hypertension Chronic pancreatic insufficiency Depression Home Medications ?Medication ?Instructions ?Recorded ?Last Taken ?Type lancets #300 ea 01/24/23 Unknown Rx nitroglycerin 0.4 mg sublingual 0.4 mg sublingual Q5-15M PRN chest 10/04/23 Unknown Rx tablet (Nitrostat) pain #25 tabs blood sugar diagnostic (OneTouch #300 ea 11/29/23 Unknown Rx Verio test strips) blood-glucose meter (OneTouch #1 ea 11/29/23 Unknown Rx Verio Flex Meter) TENS units (TENS 502 device) #1 ea 12/05/23 Unknown Rx amitriptyline 50 mg tablet 50 mg PO QHS sleep #90 tabs 12/14/23 05/12/24 Rx icosapent ethyl 1 gram capsule 2 g (2 x 1 gram) PO BID hld #120 02/27/24 05/12/24 Rx (Vascepa) caps pen needle, diabetic 32 gauge x #400 ea 02/27/24 Unknown Rx (BD Ultra-Fine Sophia Pen Needle) allopurinol 100 mg tablet 100 mg PO QHS gout #90 tabs 03/18/24 05/12/24 Rx nystatin 100,000 unit/gram topical 1 applic topical BID PRN for 03/19/24 05/12/24 Rx powder ([facility]) infectious disease #30 GMS flash glucose sensor (FreeStyle #6 ea 03/21/24 Unknown Rx Marilyn 14 Day Sensor kit) handicap placard #1 ea 04/16/24 Unknown Rx insulin lispro 100 unit/mL 20 unit subcut TID dm 05/13/24 05/12/24 History subcutaneous pen (Humalog KwikPen (U-100) Insulin) insulin glargine 100 unit/mL (3 50 unit (0.5 mL) subcut QHS #45 mL 05/27/24 Unknown Rx mL) subcutaneous pen (Lantus Solostar U-100 Insulin) carvedilol 6.25 mg tablet 6.25 mg PO BID #180 tabs 06/06/24 Unknown Rx meclizine 12.5 mg tablet 12.5 - 25 mg (1 - 2 x 12.5 mg) PO 06/21/24 Unknown Rx Q8H PRN PRN dizziness #30 tabs losartan 50 mg tablet 50 mg PO DAILY bp #84 TABLETS 07/14/24 Unknown Rx divalproex 125 mg capsule,delayed 125 mg PO BID bipolar #56 caps 07/15/24 Unknown Rx release sprinkle rabeprazole 20 mg tablet,delayed 20 mg PO QDAY #30 tabs 07/24/24 Unknown Rx release (AcipHex) gabapentin 600 mg tablet 600 mg PO BID for neuropathy #60 08/20/24 Unknown Rx TABLETS ticagrelor 90 mg tablet 90 mg PO BID #180 tabs 08/21/24 Unknown Rx atorvastatin 80 mg tablet 80 mg PO QHS Hyperlipidemia #100 09/03/24 Unknown Rx tabs colestipol 1 gram tablet 1 g PO DAILY cholesterol #100 tabs 09/03/24 Unknown Rx levothyroxine 112 mcg tablet 112 mcg PO MOTUWETHFR thyroid #90 09/03/24 Unknown Rx tabs albuterol sulfate 90 mcg/actuation 2 puff inhalation Q6H PRN Wheezing 09/05/24 Unknown Rx aerosol inhaler #8.5 grams apixaban 5 mg tablet (Eliquis) 5 mg PO BID blood thinner #180 tabs 09/11/24 Unknown Rx Allergy/AdvReac Type Severity Reaction Status Date / Time duloxetine (From Cymbalta) Allergy Itching Verified 09/17/24 17:10 Environmental Allergies: Allergy Cough Verified 09/17/24 17:10 Uncoded tomato Allergy Itching Verified 09/17/24 17:10 diphenhydramine (From AdvReac Severe other Verified 09/17/24 17:10 Benadryl) isosorbide AdvReac Intermediate Other Verified 09/17/24 17:10 adhesive tape (plastic tape) AdvReac Rash Verified 09/17/24 17:10 semaglutide (From Ozempic) AdvReac Diarrhea Verified 09/17/24 17:10 Family History Sister COPD (chronic obstructive pulmonary disease) Mother COPD (chronic obstructive pulmonary disease) Hypertension Alzheimer's dementia without behavioral disturbance Father Diabetes Hypertension Myocardial infarction Parkinsons disease Surgical History History of surgical procedure History of laparoscopic appendectomy History of total abdominal hysterectomy Hx of cholecystectomy Hx of shoulder surgery Presence of stent in coronary artery (~09/06/21) Social History household members: family current occupational status: retired 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 HEENT: Eyes: No visual loss, blurred vision, double vision or yellow sclerae. Ears, Nose, Throat: No hearing loss, congestion, rhinorrhea, sore throat SKIN: No rash or itching, lesions, wounds. CARDIOVASCULAR: No chest pain, chest pressure or chest discomfort, palpitations, edema, orthopnea, syncopal events. RESPIRATORY: No dyspnea, cough, productive sputum, wheezing, hemoptysis. GASTROINTESTINAL: + anorexia, nausea, vomiting, diarrhea. No abdominal pain, melena, BRBPR. GENITOURINARY: No dysuria, frequency, hesitancy. NEUROLOGICAL: + History of frequent falls. No headache, dizziness, syncope, paralysis, ataxia, numbness or tingling in the extremities, focal weakness, change in bowel or bladder control, seizure. MUSCULOSKELETAL: + muscle, back pain, joint pain or stiffness. HEMATOLOGIC: + chronic anemia, easy bleeding/bruising. LYMPHATICS: No enlarged nodes. No history of splenectomy. PSYCHIATRIC: + Hx anxiety and depression/bipolar disorder. ENDOCRINOLOGIC: No reports of sweating, cold or heat intolerance. No polyuria or polydipsia. ALLERGIES: No history of asthma, hives, eczema or rhinitis. Vital Signs Vital Signs Vital Signs: 09/17/24 17:05 09/17/24 19:04 09/17/24 21:00 Temperature 98.1 F Temperature Source Oral Pulse Rate 84 69 68 Respiratory Rate 16 18 16 Blood Pressure 118/79 123/74 H 129/78 H Blood Pressure Mean 92 90 95 Pulse Ox 99 99 97 Oxygen Delivery Method Room Air Room Air Room Air Weight Weight: 153 lb 0.013 oz Body Mass Index (BMI) 30.9 Physical Exam Narrative Physical Examination: General: Awake, alert, oriented x 3 and cooperative, seated upright in bed in no apparent distress, fatigued, smells of urine. Skin: Normal color, normal turgor, no icterus, no cyanosis except occasional stage ecchymoses, abrasion. HEENT: AT/NC, EOMI, PERRLA, dry MM, no carotid bruits or JVD noted. Lungs: Diminished, greater bases, mildly increased respiratory rate but no distress, very scant occasional expiratory wheeze but not severe, no rales or rhonchi, no evidence of any distress. Heart: Irregular, rate controlled; no gallop, rub audible. Abdomen: Soft, obese, TTP L sided upper and lower quadrant, absent BS L sided, hyperactive BS R side abdomen, moderately distended, tympanitic, no obvious discerned HSM however difficult given pain and distention. Extremities: No cyanosis, clubbing, or edema. Neurological: Patient awake, alert, oriented as noted, cognitive function intact; pupils equally reactive to light and accommodation, cranial nerves grossly normal, moving all 4 extremities, no focal deficits, strength moderately to severely globally decreased secondary to acute presentation. Psychiatric: Affect appears flat, fatigued, no acute evidence of depressive or anxious feelings but does have underlying history. Results Lab / Micro Data 09/17/24 19:00 09/17/24 19:00 Labs: Laboratory Results - last 24 hr 09/17/24 19:00: WBC 16.7 H, RBC 4.75, Hgb 13.0, Hct 40.4, MCV 85.1, MCH 27.4, MCHC 32.2, RDW Std Deviation 58.6 H, RDW Coeff of Yaw 18.7 H, Plt Count 716 H, MPV 8.9, Immature Gran % (Auto) 0.500, Neut % (Auto) 87.3 H, Lymph % (Auto) 7.7 L, [place] % (Auto) 3.6, Eos % (Auto) 0.5, Baso % (Auto) 0.4, Absolute Neuts (auto) 14.5 H, Absolute Lymphs (auto) 1.29, Nucleated RBC % 0, PT 13.4, INR 1.0, APTT 25.4, Sodium 122 L, Potassium 5.7 H, Chloride 86 L, Carbon Dioxide 19.6 L, Anion Gap 17 H, BUN 36 H, Creatinine 1.74 H, Estim Creat Clear Calc 26.90 L, Est GFR (MDRD) Non-Af 32 L, BUN/Creatinine Ratio 20.5 H, Glucose 321 H, Calcium 10.5, Total Bilirubin 0.40, AST 19, ALT 19, Alkaline Phosphatase 160 H, Total Protein 9.4 H, Albumin 5.0 H, Globulin 4.4 H, Albumin/Globulin Ratio 1.1, Lipase 37, b-Hydroxybutyric mmol/L 0.1 09/17/24 19:40: Lactic Acid 2.7 H* 09/17/24 21:30: Urine Color Yellow, Urine Clarity Clear, Urine pH 6.0, Ur Specific [place] 1.015, Urine Protein 30 H, Urine Glucose (UA) 100 H, Urine Ketones Negative, Urine Occult Blood Negative, Urine Nitrite Negative, Urine Bilirubin Negative, Urine Urobilinogen Normal, Ur Leukocyte Esterase Negative, Urine RBC 0-5 SEEN, Urine WBC 0-5 SEEN, Ur Squamous Epith Cells 5-10 SEEN, Urine Bacteria 0 SEEN, Urine Mucus 0 SEEN ABG Data ABG results: ABG 09/17/24 19:43 Specimen Type ART Sample Site L Radial pH 7.27 L Bicarbonate Actual 17.7 L Total CO2 19 Base Excess -9 L O2 Saturation 94 L ABG pCO2 39.0 ABG pO2 80 Daniel Test Positive O2 Delivery Device Room Air Vent Mode Not entered Imaging Radiology Impression Abdomen/Pelvis CT 09/17/24 19:04 IMPRESSION: Recurrent mild partial small bowel obstruction. Transition point is not identified. No CT evidence of ischemia or perforation. Reading Location: [id number] Assessment & Plan Assessment/Plan (1) Partial small bowel obstruction: PLAN: Plan The patient is a 69 y/o F w/ PMHx: HTN, HLD, Hypothyroidism, Tobacco use, Obesity, Diabetes mellitus type II with chronic neuropathy, PAF, CAD s/p PCI, CKD stage III unclear subtype, Gout, Anxiety and Depression/Bipolar disorder, GERD who presents to the [facility] ED on 09/17/2024 with history of onset abdominal discomfort, generalized, cramping and aching as well as intermittent sharp stabbing rated 8-9 out of 10 in severity starting on day of presentation with poor oral intake reportedly not eating or drinking anything with associated nausea but no emesis in addition to persistent watery diarrhea which has not abated with no fevers or chills. #1. Abdominal pain, nausea, emesis w/ concern for partial mild SBO versus adynamic ileus: Will admit to MS, maintain on IVFs, patient declined NG tube placement at this time and given no vomiting will hold on placement, will obtain C. difficile and enteric pathogens, strict I&Os, IV pain/anti-emetics PRN, serial KUB as needed to montior bowel function, maintain on IV PPI, maintain NPO on bowel rest. General surgery consulted with evaluation pending. Will temporarily hold oral medications given CT imaging and regardless of mild partial SBO versus adynamic ileus SPECT would absorb educations poorly, transition back to oral regimen once appropriate. #2. Acute kidney injury on CKD stage III unclear subtype per previous GFR trending: Secondary to poor oral intake, dehydration, hypovolemia. Admission BUN/Cr 36/1.74, GFR 32, prior baseline creatinine noted to be primarily 1.1-1.5 although has vacillated, most recently 07/24/2024 creatinine 1.16, will continue to aggressively hydrate as noted, hold nephrotoxic agents, continue to trend BMP as noted, if not improving will further investigate. #3. Hyponatremia, hypochloremia, suspected hypovolemic etiology given poor oral intake: Admission sodium 122, chloride 86, will continue to aggressively hydrate and will continue to serially trend BMP given concurrent hyperkalemia as noted, repeat CMP in AM. #4. Hyperkalemia: Admission potassium 5.7, given current presentation will continue hydration, trend serial BMP and if following aggressive hydration no improvement will initiate hyperkalemic protocol. #5. Metabolic acidosis with electrolyte disturbances, lactic acidosis suspected primarily secondary to dehydrated status as noted above with #2, #3: Admission lactic acid 2.7, will continue aggressively hydrate and trend lactic acid per facility protocol, continue to monitor electrolytes with correction as needed as noted. #6. Diabetes mellitus type II with chronic neuropathy with hyperglycemia unfortunately not recently taking her insulin therapy with normal hydroxybutyrate level: Hold oral home regimen, will hold short acting given n.p.o. status, continue long-acting with transition to one half dose pending blood sugar assessments, temporally hold gabapentin, maintain on Accu-Cheks with insulin sliding scale every 6 hours. #7. PAF: Will temporally hold Coreg and Eliquis, add back once oral intake appropriate. #8. CAD: s/p PCI, will temporally hold home Eliquis, Brilinta, statin, Coreg, add back once oral intake appropriate. #9. Chronic normocytic anemia: Admission hemoglobin 13, suspect this is falsely elevated with likely hemoconcentration given dehydration, baseline previously primarily 7-9 range, will continue to trend CBC especially following hydration. #10. Anxiety and Depression/Bipolar disorder: Temporally hold home Depakote regimen, add back once oral intake appropriate. #11. Hypothyroidism: Temporarily hold home levothyroxine regimen, add back once oral intake appropriate. #12. Hypertension: Temporally hold home Coreg, isosorbide regimen, add back once oral intake appropriate. PRN IV hydralazine. #13. Hyperlipidemia: Temporarily hold home statin, add back once oral intake appropriate. #14. Obesity: Weight loss and lifestyle changes encouraged. #15. Tobacco Abuse: Encouraged cessation, smokes ~ 10 cig/day, inpatient consultation per RT, NR if desired. #16. GERD: Maintained on IV PPI given #1. #17. DVT prophylaxis: Temporarily hold home oral Eliquis, temporarily placed on chemoprophylaxis with Lovenox. #18. CODE status: Full Code status. Charges/Coding Visit Charges Inpatient E&M: 11738 Init Hosp L3
[2024-09-17] MEDS: Insulin Lispro 100 UNIT/ML INSULN.PEN 10 UNIT SC (22:20)
[2024-09-17 22:26] VITALS: BP 126/75; PULSE 76; RESP 16; TEMP 36.6; O2SAT 95
--- NOTE | 2024-09-17 22:38 | ED.RN ---
Pt adamantly declines NG/OG tube insertion, hospitalist and ED MD aware.
[2024-09-17 23:00] VITALS: BP 135/89; PULSE 67; RESP 18; TEMP 36.9; O2SAT 100
[2024-09-17 23:13] VITALS: BMI 29.8
[2024-09-17 23:47] LABS: Reflex Lactate? Y
[2024-09-17 23:48] LABS: Magnesium 1.3 mg/dL (1.5-2.2); Phosphorus 3.5 mg/dL (2.7-4.5)
[2024-09-18] MEDS: Pantoprazole Sodium 40 MG in 0.9% Normal Saline (100mL MB+) 100 ML 330 MG IV ×3 (00:05→21:29)
[2024-09-18] MEDS: 0.9% Normal Saline (1000mL) 1,000 ML 999 ML IV (00:07)
[2024-09-18] MEDS: Insulin Lispro 100 UNIT/ML INSULN.PEN SC ×5 (00:16→23:04)
[2024-09-18 01:37] LABS: Bedside Glucose 219 mg/dL (74-106)
[2024-09-18] MEDS: 0.9% Normal Saline (1000mL) 1,000 ML 100 ML IV (01:41)
[2024-09-18 03:32] VITALS: BMI 30.4
--- NOTE | 2024-09-18 05:55 | RAD_ITS ---
PROCEDURE: ABDOMEN SINGLE VIEW (PORTABLE) 09/18/2024 REASON FOR EXAM: PSBO TECHNIQUE: Single view abdomen. 2 total images to include the entire abdomen and pelvis FINDINGS: Gaseous distention of bowel consistent with history of obstructive process. Status post cholecystectomy. The lung bases appear clear. Excreted contrast material is seen within the bladder. Vascular calcifications noted. RAD/Abdomen Single View (Portable) IMPRESSION: Gaseous distention of bowel consistent with history of obstructive process. Reading Location: [id number]
[2024-09-18 06:00] VITALS: BP 113/69; PULSE 69; RESP 18; TEMP 36.3; O2SAT 96
[2024-09-18 06:30] LABS: Absolute Lymphocyte Count 2.16 X10^3/uL (0.83-4.51); Absolute Neutrophil Count 9.1 X10^3/uL (2.0-7.7); Basophil# 0.06 X10^3/uL; Basophil% 0.5 % (0-1); Eosinophils% 2.4 % (0-5); Hematocrit 32.5 % (37-47); Hemoglobin 10.1 g/dL (12.0-15.0); Lymphocyte # 2.16 X10^3/ul (0.83-4.51); Lymphocyte % 17.1 % (19-41); Mean Corp Hgb Conc 31.1 g/dL (32-36); Mean Corpuscular Hgb 27.1 pg (27.0-32.0); Mean Corpuscular Volume 87.1 fL (81-99); Monocyte# 0.93 X10^3/uL; Monocyte% 7.4 % (0-10); NRBC Flagged by Analyzer 0 % (0-5); Neutrophil # 9.12 X10^3/uL (2.7-7.7); Platelet Count 561 K/mm3 (150-450); RBC Distribution Width CV 18.6 % (11.6-14.6); Red Blood Count 3.73 M/mm3 (4.2-5.4); White Blood Count 12.7 K/mm3 (4.4-11.0)
[2024-09-18 07:10] LABS: Bedside Glucose 172 mg/dL (74-106)
--- NOTE | 2024-09-18 07:32 | PCM.PN.HOSP ---
Reason for Visit Reason for Visit: Diagnoses Partial intestinal obstruction, unspecified as to cause (09/17/24) Subjective Subjective Patient is a 69-year-old lady who presented with abdominal pain CT of the abdomen and pelvis obtained demonstrated recurrent bouts of partial small bowel obstruction with no transition point identified. Admitted to regular nursing floor for further management Objective Data Objective Data Vital Signs: Vital Signs Temp Pulse Resp BP Pulse Ox O2 Del Method 98 F 76 16 126/75 H 95 Room Air 09/17/24 22:26 09/17/24 22:26 09/17/24 22:26 09/17/24 22:26 09/17/24 22:26 09/17/24 23:13 Oxygen Delivery Method Room Air Weight: 68.311 kg Body Mass Index (BMI) 30.4 Intake & Output: Intake and Output for Last 24 Hours 09/16/24 09/17/24 09/18/24 23:59 23:59 23:59 Intake Total 1000 / 1000 1110 / 1110 Balance 1000 / 1000 1110 / 1110 Lab / Micro Data 09/18/24 05:51 09/18/24 05:51 Labs: Laboratory Results - last 24 hr 09/17/24 19:00: WBC 16.7 H, RBC 4.75, Hgb 13.0, Hct 40.4, MCV 85.1, MCH 27.4, MCHC 32.2, RDW Std Deviation 58.6 H, RDW Coeff of Yaw 18.7 H, Plt Count 716 H, MPV 8.9, Immature Gran % (Auto) 0.500, Neut % (Auto) 87.3 H, Lymph % (Auto) 7.7 L, Cannon % (Auto) 3.6, Eos % (Auto) 0.5, Baso % (Auto) 0.4, Absolute Neuts (auto) 14.5 H, Absolute Lymphs (auto) 1.29, Nucleated RBC % 0, PT 13.4, INR 1.0, APTT 25.4, Sodium 122 L, Potassium 5.7 H, Chloride 86 L, Carbon Dioxide 19.6 L, Anion Gap 17 H, BUN 36 H, Creatinine 1.74 H, Estim Creat Clear Calc 26.90 L, Est GFR (MDRD) Non-Af 32 L, BUN/Creatinine Ratio 20.5 H, Glucose 321 H, Calcium 10.5, Phosphorus 3.5, Magnesium 1.3 L, Total Bilirubin 0.40, AST 19, ALT 19, Alkaline Phosphatase 160 H, Total Protein 9.4 H, Albumin 5.0 H, Globulin 4.4 H, Albumin/Globulin Ratio 1.1, Lipase 37, b-Hydroxybutyric mmol/L 0.1 09/17/24 19:40: Lactic Acid 2.7 H* 09/17/24 21:30: Urine Color Yellow, Urine Clarity Clear, Urine pH 6.0, Ur Specific [place] 1.015, Urine Protein 30 H, Urine Glucose (UA) 100 H, Urine Ketones Negative, Urine Occult Blood Negative, Urine Nitrite Negative, Urine Bilirubin Negative, Urine Urobilinogen Normal, Ur Leukocyte Esterase Negative, Urine RBC 0-5 SEEN, Urine WBC 0-5 SEEN, Ur Squamous Epith Cells 5-10 SEEN, Urine Bacteria 0 SEEN, Urine Mucus 0 SEEN 09/18/24 00:03: POC Glucose 219 H 09/18/24 00:27: Lactic Acid 2.0 09/18/24 05:51: WBC 12.7 H, RBC 3.73 L, Hgb 10.1 L, Hct 32.5 L, MCV 87.1, MCH 27.1, MCHC 31.1 L, RDW Std Deviation 59.0 H, RDW Coeff of Yaw 18.6 H, Plt Count 561 H, MPV 9.0, Immature Gran % (Auto) 0.600, Neut % (Auto) 72.0 H, Lymph % (Auto) 17.1 L, Cannon % (Auto) 7.4, Eos % (Auto) 2.4, Baso % (Auto) 0.5, Absolute Neuts (auto) 9.1 H, Absolute Lymphs (auto) 2.16, Nucleated RBC % 0 09/18/24 06:24: POC Glucose 172 H Micro: Microbiology 09/18/24 03:30 Stool Clostridioides difficile (PCR) - Final ABG Data ABG results: ABG 09/17/24 19:43 Specimen Type ART Sample Site L Radial pH 7.27 L Bicarbonate Actual 17.7 L Total CO2 19 Base Excess -9 L O2 Saturation 94 L ABG pCO2 39.0 ABG pO2 80 Daniel Test Positive O2 Delivery Device Room Air Vent Mode Not entered Radiography Diagnostic Testing: Radiology Impression Abdomen/Pelvis CT 09/17/24 19:04 IMPRESSION: Recurrent mild partial small bowel obstruction. Transition point is not identified. No CT evidence of ischemia or perforation. Reading Location: [facility] Physical Exam Narrative GENERAL: cooperative HEENT: Atraumatic; normocephalic EYES; Anicteric, Normal Conjunctiva NECK; supple, normal thyroid, RESPIRATORY: Diminished to auscultation CARDIOVASCULAR: Regular S1 S2, GI: soft, normoactive bowel sounds, : No Renal angle tenderness; EXTREMITIES: No edema, no clubbing, MUSCULOSKELETAL: no muscle wasting NEURO: Awake; no lateralizing signs. SKIN: No Rash PSYCH; Flat affect Assessment & Plan Assessment/Plan (1) Partial small bowel obstruction: PLAN: Plan Patient is a 69-year-old lady who presented with abdominal pain CT of the abdomen and pelvis obtained demonstrated recurrent bouts of partial small bowel obstruction with no transition point identified. Admitted to regular nursing floor for further management 1. Partial small bowel obstruction ? Patient admitted to regular nursing floor symptom management initiated with bowel rest, Pain meds as well as antinausea medication. Patient was seen in consultation by Dr. Butler with general surgery who told patient had gastroenteritis 2. Acute gastroenteritis ? Patient is having diarrhea. Please enteric precautions decided for ova and parasite stool culture as well as C. difficile 3. Acute kidney injury ? Creatinine from 07/24/2024 was 1.16 creatinine on admission was 1.74 started on IV hydration, response to therapy being monitored with daily BMPs 4. Hyponatremia Secondary to hypovolemic hyponatremia started on saline monitoring with daily BMPs ordered 5. Hyperkalemia ? Potassium on admission was 5.7. This was attributed to patient SALVATORE which is currently being treated with repeat potassium levels ordered for follow-up 6. Diabetes mellitus type II -patient's oral hypoglycemics held. Placed on long acting insulin, Accu-Cheks a.c. and at bedtime and covered with sliding scale insulin 7. Paroxysmal atrial fibrillation The rate controlled. Patient is also on systemic anticoagulation with apixaban continued 8. Metabolic acidosis ? Secondary to SALVATORE treating underlying etiology 9. Coronary artery disease ? With previous PCI patient is on guideline directed medical therapy continue 10. Hypothyroidism ? Patient was on levothyroxine held on admission resumed 11. Hypertension ? Blood pressure controlled, home medications continued with dose adjustment as needed 12. GERD ? On PPI continue 13. Dyslipidemia ? Patient is on Vascepa and colestipol plan is to resume following discharge next 14. Anemia ? Secondary to chronic disorder monitoring H&H and transfuse if patient becomes symptomatic or hemoglobin falls below 7 15. Class I obesity with BMI of 30.4 ? Weight loss advised 16. 6. Gout ? Patient is on. Allopurinol continued 17. Thrombocytosis ? Reactive repeated platelet count in the a.m. 18. Tobacco dependence ? Counseled on cessation, offered nicotine patch for tobacco cravings 19. DVT prophylaxis ? Patient is on apixaban resumed Charges/Coding Visit Charges Inpatient E&M: 23607 Subs Hosp L3
--- NOTE | 2024-09-18 07:41 | EX.PCM.CON.S ---
Assessment & Plan Assessment/Plan (1) Diarrhea: PLAN: The patient has been having diarrhea for 2 days and continues to have diarrhea. I do not believe she has a bowel obstruction. I reviewed her CT and her small bowel does have liquid in it but her colon is filled with liquid as well. I believe she may be having gastroenteritis. Continue supportive measures. She had a lot of electrolyte abnormalities. BMP is pending for this morning. Franck Butler MD Pager: [facility] [address] [place] [address] [address], [address] [place] [address] Office: HPI Consult Data Date of Consult: 09/18/24 HPI Narrative HPI Narrative: ASIF CASTRO, is a 69 F who presents with nausea and diarrhea. The patient has been having diarrhea since yesterday. She reports pain in her right lower quadrant. She does not have any vomiting but she says she has been nauseous. [facility] Medical History Recurrent falls Chronic anemia Acute kidney injury Bipolar disorder Umbilical hernia Hypothyroidism Hiatal hernia Gout Essential hypertension Atrial fibrillation Overweight (BMI 25.0-29.9) Polyneuropathy due to type 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 GFR 30-59 Fibromyalgia affecting multiple sites Shoulder pain, bilateral Hip pain, bilateral Tachybradycardia syndrome Near syncope Generalized OA Atherosclerotic heart disease of [place] coronary artery without angina pectoris Abnormal stress test Hypertension Chronic pancreatic insufficiency Depression Home Medications ?Medication ?Instructions ?Recorded ?Last Taken ?Type lancets #300 ea 01/24/23 Unknown Rx nitroglycerin 0.4 mg sublingual 0.4 mg sublingual Q5-15M PRN chest 10/04/23 Unknown Rx tablet (Nitrostat) pain #25 tabs blood sugar diagnostic (OneTouch #300 ea 11/29/23 Unknown Rx Verio test strips) blood-glucose meter (OneTouch #1 ea 11/29/23 Unknown Rx Verio Flex Meter) TENS units (TENS 502 device) #1 ea 12/05/23 Unknown Rx amitriptyline 50 mg tablet 50 mg PO QHS sleep #90 tabs 12/14/23 05/12/24 Rx icosapent ethyl 1 gram capsule 2 g (2 x 1 gram) PO BID hld #120 02/27/24 05/12/24 Rx (Vascepa) caps pen needle, diabetic 32 gauge x #400 ea 02/27/24 Unknown Rx (BD Ultra-Fine Sophia Pen Needle) allopurinol 100 mg tablet 100 mg PO QHS gout #90 tabs 03/18/24 05/12/24 Rx nystatin 100,000 unit/gram topical 1 applic topical BID PRN for 03/19/24 05/12/24 Rx powder ([facility]) infectious disease #30 GMS flash glucose sensor (FreeStyle #6 ea 03/21/24 Unknown Rx Marilyn 14 Day Sensor kit) handicap placard #1 ea 04/16/24 Unknown Rx insulin lispro 100 unit/mL 20 unit subcut TID dm 05/13/24 05/12/24 History subcutaneous pen (Humalog KwikPen (U-100) Insulin) insulin glargine 100 unit/mL (3 50 unit (0.5 mL) subcut QHS #45 mL 05/27/24 Unknown Rx mL) subcutaneous pen (Lantus Solostar U-100 Insulin) carvedilol 6.25 mg tablet 6.25 mg PO BID #180 tabs 06/06/24 Unknown Rx meclizine 12.5 mg tablet 12.5 - 25 mg (1 - 2 x 12.5 mg) PO 06/21/24 Unknown Rx Q8H PRN PRN dizziness #30 tabs losartan 50 mg tablet 50 mg PO DAILY bp #84 TABLETS 07/14/24 Unknown Rx divalproex 125 mg capsule,delayed 125 mg PO BID bipolar #56 caps 07/15/24 Unknown Rx release sprinkle rabeprazole 20 mg tablet,delayed 20 mg PO QDAY #30 tabs 07/24/24 Unknown Rx release (AcipHex) gabapentin 600 mg tablet 600 mg PO BID for neuropathy #60 08/20/24 Unknown Rx TABLETS ticagrelor 90 mg tablet 90 mg PO BID #180 tabs 08/21/24 Unknown Rx atorvastatin 80 mg tablet 80 mg PO QHS Hyperlipidemia #100 09/03/24 Unknown Rx tabs colestipol 1 gram tablet 1 g PO DAILY cholesterol #100 tabs 09/03/24 Unknown Rx levothyroxine 112 mcg tablet 112 mcg PO MOTUWETHFR thyroid #90 09/03/24 Unknown Rx tabs albuterol sulfate 90 mcg/actuation 2 puff inhalation Q6H PRN Wheezing 09/05/24 Unknown Rx aerosol inhaler #8.5 grams apixaban 5 mg tablet (Eliquis) 5 mg PO BID blood thinner #180 tabs 09/11/24 Unknown Rx Allergy/AdvReac Type Severity Reaction Status Date / Time duloxetine (From Cymbalta) Allergy Itching Verified 09/17/24 17:10 Environmental Allergies: Allergy Cough Verified 09/17/24 17:10 Uncoded tomato Allergy Itching Verified 09/17/24 17:10 diphenhydramine (From AdvReac Severe other Verified 09/17/24 17:10 Benadryl) isosorbide AdvReac Intermediate Other Verified 09/17/24 17:10 adhesive tape (plastic tape) AdvReac Rash Verified 09/17/24 17:10 semaglutide (From Ozempic) AdvReac Diarrhea Verified 09/17/24 17:10 Family History Sister COPD (chronic obstructive pulmonary disease) Mother COPD (chronic obstructive pulmonary disease) Hypertension Alzheimer's dementia without behavioral disturbance Father Diabetes Hypertension Myocardial infarction Parkinsons disease Surgical History History of surgical procedure History of laparoscopic appendectomy History of total abdominal hysterectomy Hx of cholecystectomy Hx of shoulder surgery Presence of stent in coronary artery (~09/06/21) Social History household members: family current occupational status: retired 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 Smoking Status: Current every day smoker tobacco type: cigarettes Electronic Cigarette Use: not used alcohol intake: never substance use type: does not use caffeine: No what type of physical activity do you participate in: none do you feel safe at home: Yes ROS Constitutional Constitutional: Denies anorexia, chills or fatigue Eyes Eyes: Denies blurry vision ENT HEENT: Denies abnormal hearing Cardiovascular Cardiovascular: Denies chest pain Respiratory/Chest Respiratory/Chest: Denies cough or dyspnea Gastrointestinal Gastrointestinal: Reports abdominal pain, diarrhea and nausea; Denies vomiting Genitourinary Genitourinary: Denies change in urinary stream Musculoskeletal Musculoskeletal: Denies abnormal gait Integumentary Integumentary: Denies jaundice Neurologic Neurologic: Denies abnormal gait Psychiatric Psychiatric: Denies anxiety Hematologic/Lymphatic Hematologic/Lymphatic: Denies easy bleeding Physical Exam Const alert and oriented x3 HEENT normocephalic Eyes PERRL Resp normal respiratory effort Cardio Rate: regular rate Rhythm: regular rhythm GI soft to palpation Palpation: tender RLQ Lab / Micro Data 09/18/24 05:51 09/17/24 19:00 Labs: Laboratory Results - last 24 hr 09/17/24 19:00: WBC 16.7 H, RBC 4.75, Hgb 13.0, Hct 40.4, MCV 85.1, MCH 27.4, MCHC 32.2, RDW Std Deviation 58.6 H, RDW Coeff of Yaw 18.7 H, Plt Count 716 H, MPV 8.9, Immature Gran % (Auto) 0.500, Neut % (Auto) 87.3 H, Lymph % (Auto) 7.7 L, Saline % (Auto) 3.6, Eos % (Auto) 0.5, Baso % (Auto) 0.4, Absolute Neuts (auto) 14.5 H, Absolute Lymphs (auto) 1.29, Nucleated RBC % 0, PT 13.4, INR 1.0, APTT 25.4, Sodium 122 L, Potassium 5.7 H, Chloride 86 L, Carbon Dioxide 19.6 L, Anion Gap 17 H, BUN 36 H, Creatinine 1.74 H, Estim Creat Clear Calc 26.90 L, Est GFR (MDRD) Non-Af 32 L, BUN/Creatinine Ratio 20.5 H, Glucose 321 H, Calcium 10.5, Phosphorus 3.5, Magnesium 1.3 L, Total Bilirubin 0.40, AST 19, ALT 19, Alkaline Phosphatase 160 H, Total Protein 9.4 H, Albumin 5.0 H, Globulin 4.4 H, Albumin/Globulin Ratio 1.1, Lipase 37, b-Hydroxybutyric mmol/L 0.1 09/17/24 19:40: Lactic Acid 2.7 H* 09/17/24 21:30: Urine Color Yellow, Urine Clarity Clear, Urine pH 6.0, Ur Specific [place] 1.015, Urine Protein 30 H, Urine Glucose (UA) 100 H, Urine Ketones Negative, Urine Occult Blood Negative, Urine Nitrite Negative, Urine Bilirubin Negative, Urine Urobilinogen Normal, Ur Leukocyte Esterase Negative, Urine RBC 0-5 SEEN, Urine WBC 0-5 SEEN, Ur Squamous Epith Cells 5-10 SEEN, Urine Bacteria 0 SEEN, Urine Mucus 0 SEEN 09/18/24 00:03: POC Glucose 219 H 09/18/24 00:27: Lactic Acid 2.0 09/18/24 05:51: WBC 12.7 H, RBC 3.73 L, Hgb 10.1 L, Hct 32.5 L, MCV 87.1, MCH 27.1, MCHC 31.1 L, RDW Std Deviation 59.0 H, RDW Coeff of Yaw 18.6 H, Plt Count 561 H, MPV 9.0, Immature Gran % (Auto) 0.600, Neut % (Auto) 72.0 H, Lymph % (Auto) 17.1 L, Saline % (Auto) 7.4, Eos % (Auto) 2.4, Baso % (Auto) 0.5, Absolute Neuts (auto) 9.1 H, Absolute Lymphs (auto) 2.16, Nucleated RBC % 0 09/18/24 06:24: POC Glucose 172 H Micro: Microbiology 09/18/24 03:30 Stool Clostridioides difficile (PCR) - Final ABG Data ABG results: ABG 09/17/24 19:43 Specimen Type ART Sample Site L Radial pH 7.27 L Bicarbonate Actual 17.7 L Total CO2 19 Base Excess -9 L O2 Saturation 94 L ABG pCO2 39.0 ABG pO2 80 Daniel Test Positive O2 Delivery Device Room Air Vent Mode Not entered Imaging Radiology Impression Abdomen/Pelvis CT 09/17/24 19:04 IMPRESSION: Recurrent mild partial small bowel obstruction. Transition point is not identified. No CT evidence of ischemia or perforation. Reading Location: [id number] X-Ray 09/18/24 05:55 IMPRESSION: Gaseous distention of bowel consistent with history of obstructive process. Reading Location: [id number]
[2024-09-18 08:20] LABS: ALB/GLOB Ratio 1.4 RATIO (0.9-2.4); AST(SGOT) 14 U/L (<=31); Alanine Aminotransfer ALT/SGPT 14 U/L (<=34); Albumin, Serum 3.8 g/dL (3.4-4.8); Alkaline Phosphatase 107 U/L (35-104); Anion Gap 13 (5-15); BUN 36 mg/dL (4-19); BUN/Creat Ratio 22.5 RATIO (10-20); Calcium,Total 8.4 mg/dL (7.6-11.0); Carbon Dioxide 16.3 mmol/L (21.0-32.0); Chloride 102 mmol/L (98-108); Creatinine, Serum 1.58 mg/dL (0.70-1.20); EST Glomerular Filtration Rate 35 (>60); Estimated Creatinine Clearance 29.39 ml/min (50-250); Globulin 2.8 g/dL (2.2-4.2); Glucose 168 mg/dL (70-99); Potassium 4.4 mmol/L (3.3-5.1); Protein, Total 6.6 g/dL (5.9-8.4); Sodium Level 131 mmol/L (133-145); Total Bilirubin 0.22 mg/dL (0.00-1.30)
--- NOTE | 2024-09-18 09:30 | CASEMGMT ---
Care Management handy worker THOMPSON to room to meet with patient for initial transition planning/care coordination assessment. WU MACKAY introduced self and role at [facility]. Patient alert and oriented. Patient willing to participate in assessment and is able to answer all questions appropriately.? Care providers, pharmacy, and demographics verified. Strata: 3 PCP: Dr. Sims Specialists: Dr. Garcia, neurology. Dr Marcelino, cardiology Preferred Pharmacy: [facility]. Insurance: [employer] Medicare Dual Complete and Medicaid. Prescription Benefit:?Yes HCPOA/LW: Pt has not completed. LNOK: 2 children; daughter, Lisa and son Jonathan. Mother is living, but has Alzheimer's-type dementia. Pt is , but still legally . She was made aware her would be medical decision maker if she does not have HCPOA completed and she states is okay with that. Living Arrangements: Pt lives with her mother and adult daughter Lisa.? They live in mobile home w/ ramp entrance. Pt is independent w/ADL's and IADL's, stating, I do it all and take care of my mother. Pt states her mother has a lot of belongings and the home is in complete disarray, stating she has been trying to discard things and get things cleaning up, but her mother will not often allow her to throw things away. Transportation: Pt drives. She states if she is not feeling well a friend can drive for her. DME: Quad cane, 3 standard canes, 2 rollators, walker, grab bars, W/C, ramp entrance, functioning glucometer w/sufficient supplies, back-up glucometer w/supplies, sufficient supply of insulin and needles. HHC/SNF: No hx of either. Pt was given script for OP therapy in May. She states she did not end up going. She declines need for HHC or OP therapy. Patient wishes to discharge home and denies having any discharge needs or concerns. Patient states he has no further needs at this time. ? RN THOMPSON/SW to follow for discharge planning needs that may arise. Plan: Home Leidy MEDINA RN, CM
[2024-09-18 10:27] LABS: Platelet Count 576 K/mm3 (150-450); RET-HE 27.8 pg (30-35); Reticulocyte Count 1.98 % (0.5-1.5)
[2024-09-18 10:47] VITALS: BP 101/51; PULSE 68; RESP 16; TEMP 36.6; O2SAT 93
[2024-09-18] MEDS: TICAGRELOR 90 MG TABLET PO ×2 (10:50→21:22)
[2024-09-18] MEDS: Nystatin Powder 15gm Bottle 1 APPLIC TOPICAL ×2 (10:50→21:29)
[2024-09-18] MEDS: Gabapentin 600 MG Tablet PO ×2 (10:51→21:29)
[2024-09-18] MEDS: 0.9% Saline Lock 10 ML Syringe IV (10:54)
[2024-09-18] MEDS: Acetaminophen 325 MG Tablet 650 MG PO (11:00)
[2024-09-18] MEDS: Magnesium Sulfate 4gm/100mL 4 GM/100 ML IV.SOLN. IV (11:37)
[2024-09-18] MEDS: Divalproex Sodium 125 MG SPRINKLE PO ×2 (11:38→21:22)
[2024-09-18] MEDS: APIXABAN 5 MG TABLET PO ×2 (11:39→21:22)
[2024-09-18 11:59] LABS: Bedside Glucose 181 mg/dL (74-106)
[2024-09-18] MEDS: Insulin Lispro 100 UNIT/ML INSULN.PEN 20 UNIT SC ×2 (13:03→16:57)
[2024-09-18] MEDS: guaiFENesin/D-Methorphan TAB.SR.12H 1 TABLET PO ×2 (13:05→21:23)
[2024-09-18] MEDS: Loperamide 2 MG Capsule PO (13:05)
[2024-09-18 13:10] LABS: Ferritin 21 ng/mL (22-378); Iron 25 ug/dL (50-170); Iron Binding Capacity,Total 384 ug/dL (250-450); Iron Binding Capacity,Unsat 359 ug/dL (228-428)
[2024-09-18 16:50] VITALS: BP 125/58; PULSE 69; RESP 16; TEMP 36.5; O2SAT 96
[2024-09-18] MEDS: Carvedilol 6.25 MG Tablet PO (16:57)
[2024-09-18 20:54] LABS: Bedside Glucose 195 mg/dL (74-106)
[2024-09-18 21:14] VITALS: BP 116/52; PULSE 62; RESP 15; TEMP 36.8; O2SAT 94
[2024-09-18] MEDS: Allopurinol 100 MG Tablet PO (21:21)
[2024-09-18] MEDS: Amitriptyline 25 MG Tablet 50 MG PO (21:22)
[2024-09-18] MEDS: Atorvastatin Calcium 80 MG Tablet PO (21:22)
[2024-09-18 21:43] LABS: Bedside Glucose 67 mg/dL (74-106)
[2024-09-18] MEDS: Insulin Glargine-YFGN 100 UNIT/ML Pen 50 UNIT SC (23:03)
[2024-09-18 23:23] LABS: Bedside Glucose 169 mg/dL (74-106)
[2024-09-19 03:00] VITALS: BP 109/61; PULSE 69; RESP 13; TEMP 36.8; O2SAT 95
[2024-09-19 05:10] VITALS: BMI 30.9
[2024-09-19 05:22] LABS: Absolute Lymphocyte Count 2.19 X10^3/uL (0.83-4.51); Absolute Neutrophil Count 5.2 X10^3/uL (2.0-7.7); Basophil# 0.07 X10^3/uL; Basophil% 0.8 % (0-1); Eosinophil# 0.29 X10^3/uL; Eosinophils% 3.4 % (0-5); Hematocrit 28.3 % (37-47); Hemoglobin 8.9 g/dL (12.0-15.0); Lymphocyte # 2.19 X10^3/ul (0.83-4.51); Lymphocyte % 25.9 % (19-41); Mean Corp Hgb Conc 31.4 g/dL (32-36); Mean Corpuscular Hgb 27.1 pg (27.0-32.0); Mean Platelet Vol. 8.7 fl (6.2-12.0); Monocyte# 0.63 X10^3/uL; Monocyte% 7.5 % (0-10); NRBC Flagged by Analyzer 0 % (0-5); Neutrophil # 5.22 X10^3/uL (2.7-7.7); Neutrophil % 61.8 % (47-70); Platelet Count 442 K/mm3 (150-450); RBC Distribution Width CV 18.7 % (11.6-14.6); Red Blood Count 3.29 M/mm3 (4.2-5.4); White Blood Count 8.5 K/mm3 (4.4-11.0)
[2024-09-19 05:45] LABS: Magnesium 2.1 mg/dL (1.5-2.2); Phosphorus 2.8 mg/dL (2.7-4.5)
[2024-09-19 05:48] LABS: ALB/GLOB Ratio 1.4 RATIO (0.9-2.4); AST(SGOT) 13 U/L (<=31); Alanine Aminotransfer ALT/SGPT 12 U/L (<=34); Albumin, Serum 3.5 g/dL (3.4-4.8); Alkaline Phosphatase 91 U/L (35-104); Anion Gap 11 (5-15); BUN 29 mg/dL (4-19); BUN/Creat Ratio 22.5 RATIO (10-20); Calcium,Total 8.1 mg/dL (7.6-11.0); Carbon Dioxide 18.9 mmol/L (21.0-32.0); Chloride 104 mmol/L (98-108); Creatinine, Serum 1.27 mg/dL (0.70-1.20); EST Glomerular Filtration Rate 46 (>60); Globulin 2.5 g/dL (2.2-4.2); Glucose 104 mg/dL (70-99); Potassium 3.1 mmol/L (3.3-5.1); Sodium Level 133 mmol/L (133-145)
[2024-09-19] MEDS: Levothyroxine 112 MCG Tablet PO (06:52)
[2024-09-19 07:10] LABS: Bedside Glucose 101 mg/dL (74-106)
[2024-09-19] MEDS: Carvedilol 6.25 MG Tablet PO (08:25)
[2024-09-19 08:27] VITALS: BP 142/48
--- NOTE | 2024-09-19 08:29 | PN.HOSP_ITS ---
Reason for Visit Reason for Visit: Diagnoses Partial intestinal obstruction, unspecified as to cause (09/17/24) Diarrhea, unspecified (09/17/24) Objective Data Objective Data Vital Signs: Vital Signs Temp Pulse Resp BP Pulse Ox O2 Del Method 98.3 F 69 13 142/48 H 95 Room Air 09/19/24 03:00 09/19/24 03:00 09/19/24 03:00 09/19/24 08:27 09/19/24 03:00 09/19/24 08:03 Oxygen Delivery Method Room Air Weight: 69.6 kg Body Mass Index (BMI) 30.9 Intake & Output: Intake and Output for Last 24 Hours 09/17/24 09/18/24 09/19/24 23:59 23:59 23:59 Intake Total 1000 / 1000 2670 / 3150 480 / 480 Balance 1000 / 1000 2670 / 3150 480 / 480 Lab / Micro Data 09/19/24 04:51 09/19/24 04:51 Labs: Laboratory Results - last 24 hr 09/18/24 05:51: Retic Count 1.98 H, Immature Retic Fraction 14.60, Retic Hgb Equivalent 27.8 L, Iron 25 L, TIBC 384, Iron Saturation 6.0 L, Unsaturated IBC 359, Ferritin 21 L 09/18/24 11:03: POC Glucose 181 H 09/18/24 16:56: POC Glucose 195 H 09/18/24 21:19: POC Glucose 67 L 09/18/24 23:02: POC Glucose 169 H 09/19/24 04:51: WBC 8.5, RBC 3.29 L, Hgb 8.9 L, Hct 28.3 L, MCV 86.0, MCH 27.1, MCHC 31.4 L, RDW Std Deviation 59.0 H, RDW Coeff of Yaw 18.7 H, Plt Count 442, MPV 8.7, Immature Gran % (Auto) 0.600, Neut % (Auto) 61.8, Lymph % (Auto) 25.9, [place] % (Auto) 7.5, Eos % (Auto) 3.4, Baso % (Auto) 0.8, Absolute Neuts (auto) 5.2, Absolute Lymphs (auto) 2.19, Nucleated RBC % 0, Sodium 133, Potassium 3.1 L , Chloride 104, Carbon Dioxide 18.9 L, Anion Gap 11, BUN 29 H, Creatinine 1.27 H , Estim Creat Clear Calc 36.90 L, Est GFR (MDRD) Non-Af 46 L, BUN/Creatinine Ratio 22.5 H, Glucose 104 H, Calcium 8.1, Phosphorus 2.8, Magnesium 2.1, Total Bilirubin 0.20, AST 13, ALT 12, Alkaline Phosphatase 91, Total Protein 6.0, Albumin 3.5, Globulin 2.5, Albumin/Globulin Ratio 1.4 09/19/24 06:51: POC Glucose 101 Micro: Microbiology 09/18/24 03:30 Stool Enteric Bacteriology - Final 09/18/24 03:30 Stool Clostridioides difficile (PCR) - Final Physical Exam Narrative GENERAL: cooperative HEENT: Atraumatic; normocephalic EYES; Anicteric, Normal Conjunctiva NECK; supple, normal thyroid, RESPIRATORY: Diminished to auscultation CARDIOVASCULAR: Regular S1 S2, GI: soft, normoactive bowel sounds, : No Renal angle tenderness; EXTREMITIES: No edema, no clubbing, MUSCULOSKELETAL: no muscle wasting NEURO: Awake; no lateralizing signs. SKIN: No Rash PSYCH; Flat affect Assessment & Plan Assessment/Plan (1) Partial small bowel obstruction: PLAN: Plan Patient is a 69-year-old lady who presented with abdominal pain CT of the abdomen and pelvis obtained demonstrated recurrent bouts of partial small bowel obstruction with no transition point identified. Admitted to regular nursing floor for further management 1. Partial small bowel obstruction ? Patient admitted to regular nursing floor symptom management initiated with bowel rest, Pain meds as well as antinausea medication. Patient was seen in consultation by Dr. Butler with general surgery who told patient had gastroenteritis 2. Acute gastroenteritis ? Patient is having diarrhea. Please enteric precautions decided for ova and parasite stool culture as well as C. difficile 3. Acute kidney injury ? Creatinine from 07/24/2024 was 1.16 creatinine on admission was 1.74 started on IV hydration, response to therapy being monitored with daily BMPs 4. Hyponatremia Secondary to hypovolemic hyponatremia started on saline monitoring with daily BMPs ordered 5. Hyperkalemia ? Potassium on admission was 5.7. This was attributed to patient SALVATORE which is currently being treated with repeat potassium levels ordered for follow-up 6. Diabetes mellitus type II -patient's oral hypoglycemics held. Placed on long acting insulin, Accu-Cheks a.c. and at bedtime and covered with sliding scale insulin 7. Paroxysmal atrial fibrillation The rate controlled. Patient is also on systemic anticoagulation with apixaban continued 8. Metabolic acidosis ? Secondary to SALVATORE treating underlying etiology 9. Coronary artery disease ? With previous PCI patient is on guideline directed medical therapy continue 10. Hypothyroidism ? Patient was on levothyroxine held on admission resumed 11. Hypertension ? Blood pressure controlled, home medications continued with dose adjustment as needed 12. GERD ? On PPI continue 13. Dyslipidemia ? Patient is on Vascepa and colestipol plan is to resume following discharge next 14. Anemia ? Secondary to chronic disorder monitoring H&H and transfuse if patient becomes symptomatic or hemoglobin falls below 7 15. Class I obesity with BMI of 30.4 ? Weight loss advised 16. 6. Gout ? Patient is on. Allopurinol continued 17. Thrombocytosis ? Reactive repeated platelet count in the a.m. 18. Tobacco dependence ? Counseled on cessation, offered nicotine patch for tobacco cravings 19. DVT prophylaxis ? Patient is on apixaban resumed
[2024-09-19 09:03] LABS: Bedside Glucose 117 mg/dL (74-106)
--- NOTE | 2024-09-19 09:42 | PN.SURG_ITS ---
Subjective Subjective Patient reports that she had cessation of her diarrhea. She is having no abdominal pain. She tolerated regular diet yesterday. Objective Data Objective Data Vital Signs: Vital Signs Temp Pulse Resp BP Pulse Ox O2 Del Method 98.3 F 69 13 142/48 H 95 Room Air 09/19/24 03:00 09/19/24 03:00 09/19/24 03:00 09/19/24 08:27 09/19/24 03:00 09/19/24 08:03 Oxygen Delivery Method Room Air Weight: 153 lb 7.068 oz Body Mass Index (BMI) 30.9 Intake & Output: Intake and Output for Last 24 Hours 09/17/24 09/18/24 09/19/24 23:59 23:59 23:59 Intake Total 1000 / 1000 2670 / 3150 480 / 480 Balance 1000 / 1000 2670 / 3150 480 / 480 Lab / Micro Data 09/19/24 04:51 09/19/24 04:51 Labs: Laboratory Results - last 24 hr 09/18/24 05:51: Retic Count 1.98 H, Immature Retic Fraction 14.60, Retic Hgb Equivalent 27.8 L, Iron 25 L, TIBC 384, Iron Saturation 6.0 L, Unsaturated IBC 359, Ferritin 21 L 09/18/24 11:03: POC Glucose 181 H 09/18/24 16:56: POC Glucose 195 H 09/18/24 21:19: POC Glucose 67 L 09/18/24 23:02: POC Glucose 169 H 09/19/24 04:51: WBC 8.5, RBC 3.29 L, Hgb 8.9 L, Hct 28.3 L, MCV 86.0, MCH 27.1, MCHC 31.4 L, RDW Std Deviation 59.0 H, RDW Coeff of Yaw 18.7 H, Plt Count 442, MPV 8.7, Immature Gran % (Auto) 0.600, Neut % (Auto) 61.8, Lymph % (Auto) 25.9, [place] % (Auto) 7.5, Eos % (Auto) 3.4, Baso % (Auto) 0.8, Absolute Neuts (auto) 5.2, Absolute Lymphs (auto) 2.19, Nucleated RBC % 0, Sodium 133, Potassium 3.1 L , Chloride 104, Carbon Dioxide 18.9 L, Anion Gap 11, BUN 29 H, Creatinine 1.27 H , Estim Creat Clear Calc 36.90 L, Est GFR (MDRD) Non-Af 46 L, BUN/Creatinine Ratio 22.5 H, Glucose 104 H, Calcium 8.1, Phosphorus 2.8, Magnesium 2.1, Total Bilirubin 0.20, AST 13, ALT 12, Alkaline Phosphatase 91, Total Protein 6.0, Albumin 3.5, Globulin 2.5, Albumin/Globulin Ratio 1.4 09/19/24 06:51: POC Glucose 101 09/19/24 08:19: POC Glucose 117 H Micro: Microbiology 09/18/24 03:30 Stool Enteric Bacteriology - Final 09/18/24 03:30 Stool Clostridioides difficile (PCR) - Final Physical Exam Const oriented x3 and no apparent distress Resp normal respiratory effort GI soft to palpation and non-tender Assessment & Plan Assessment/Plan (1) Partial small bowel obstruction: PLAN: The patient had partial small bowel obstruction versus gastroenteritis. I favor the latter. She is tolerating a diet with no diarrhea today. She can go home from my standpoint once her electrolytes are adequately replenished. I will sign off as the patient does not have a bowel obstruction. Please reconsult if needed. Franck Butler MD Pager: [facility] [address] [place] [address], [address] [place] [phone] Office:
[2024-09-19 10:06] VITALS: BP 102/51; PULSE 62; RESP 16; TEMP 36.3; O2SAT 96
[2024-09-19] MEDS: Pantoprazole Sodium 40 MG in 0.9% Normal Saline (100mL MB+) 100 ML 330 MG IV (10:08)
[2024-09-19] MEDS: 0.9% Saline Lock 10 ML Syringe IV (10:08)
[2024-09-19] MEDS: Losartan Potassium 50 MG Tablet PO (10:10)
[2024-09-19] MEDS: APIXABAN 5 MG TABLET PO (10:10)
[2024-09-19] MEDS: guaiFENesin/D-Methorphan TAB.SR.12H 1 TABLET PO (10:10)
[2024-09-19] MEDS: Nystatin Powder 15gm Bottle 1 APPLIC TOPICAL (10:11)
[2024-09-19] MEDS: TICAGRELOR 90 MG TABLET PO (10:11)
[2024-09-19] MEDS: Divalproex Sodium 125 MG SPRINKLE PO (10:11)
[2024-09-19] MEDS: Gabapentin 600 MG Tablet PO (10:16)
--- NOTE | 2024-09-19 10:36 | DS.PCM_ITS ---
Providers Date of Admission: 09/17/24 Date of Discharge: 09/19/24 Primary Care Physician: Dr. Denise Uribe MD Consultations 09/17/24 23:13 Consult: General Surgery Routine Consulting Provider: Franck Butler Reason for Consult: pSBO versus ileus EMERGENT Consult: No MD Notified: Yes Date Notified: 09/17/24 Time Notified: 23:13 Method of Notification: ED Physician Initiated Reason For Visit: PSBO, HYPERKALEMIA, HYPONATREMIA, SALVATORE Diagnosis Discharge Diagnosis (1) Partial small bowel obstruction: Status: Acute Code(s): K56.600 - Partial intestinal obstruction, unspecified as to cause Plan Patient is a 69-year-old lady who presented with abdominal pain CT of the abdomen and pelvis obtained demonstrated recurrent bouts of partial small bowel obstruction with no transition point identified. Admitted to regular nursing floor for further management 1. Partial small bowel obstruction ? Patient admitted to regular nursing floor symptom management initiated with bowel rest, Pain meds as well as antinausea medication. Patient was seen in consultation by Dr. Butler with general surgery who told patient had gastroenteritis ? Patient's symptoms resolved tolerated regular diet 2. Acute gastroenteritis ? Patient is having diarrhea. Please enteric precautions decided for ova and parasite stool culture as well as C. difficile 3. Acute kidney injury ? Creatinine from 07/24/2024 was 1.16 creatinine on admission was 1.74 started on IV hydration, response to therapy being monitored with daily BMPs 4. Hyponatremia Secondary to hypovolemic hyponatremia started on saline monitoring with daily BMPs ordered 5. Hyperkalemia ? Potassium on admission was 5.7. This was attributed to patient SALVATORE which is currently being treated with repeat potassium levels ordered for follow-up ?Resolved at the time of this discharge 6. Diabetes mellitus type II -patient's oral hypoglycemics held. Placed on long acting insulin, Accu-Cheks a.c. and at bedtime and covered with sliding scale insulin 7. Paroxysmal atrial fibrillation The rate controlled. Patient is also on systemic anticoagulation with apixaban continued 8. Metabolic acidosis ? Secondary to SALVATORE treating underlying etiology 9. Coronary artery disease ? With previous PCI patient is on guideline directed medical therapy continue 10. Hypothyroidism ? Patient was on levothyroxine held on admission resumed 11. Hypertension ? Blood pressure controlled, home medications continued with dose adjustment as needed 12. GERD ? On PPI continue 13. Dyslipidemia ? Patient is on Vascepa and colestipol plan is to resume following discharge next 14. Anemia ? Secondary to chronic disorder monitoring H&H and transfuse if patient becomes symptomatic or hemoglobin falls below 7 15. Class I obesity with BMI of 30.4 ? Weight loss advised 16. Gout ? Patient is on. Allopurinol continued 17. Thrombocytosis ? Reactive repeated platelet count in the a.m. 18. Tobacco dependence ? Counseled on cessation, offered nicotine patch for tobacco cravings 19. DVT prophylaxis ? Patient is on apixaban resumed 20. Acute cystitis with staph epi -discharged on doxycycline Medications at Discharge Home Medications lancets #300 ea 01/24/23 nitroglycerin 0.4 mg sublingual tablet (Nitrostat) 0.4 mg sublingual Q5-15M PRN chest pain #25 tabs 10/04/23 blood sugar diagnostic (CertessTouch Verio test strips) #300 ea 11/29/23 blood-glucose meter (OneTouch Verio Flex Meter) #1 ea 11/29/23 TENS units (TENS 502 device) #1 ea 12/05/23 amitriptyline 50 mg tablet 50 mg PO QHS sleep #90 tabs 12/14/23 icosapent ethyl 1 gram capsule (Vascepa) 2 g (2 x 1 gram) PO BID hld #120 caps 02/27/24 pen needle, diabetic 32 gauge x /32 (BD Ultra-Fine Sophia Pen Needle) #400 ea 02/27/24 allopurinol 100 mg tablet 100 mg PO QHS gout #90 tabs 03/18/24 nystatin 100,000 unit/gram topical powder ([place]) 1 applic topical BID PRN for infectious disease #30 GMS 03/19/24 flash glucose sensor (FreeStyle Marilyn 14 Day Sensor kit) #6 ea 03/21/24 handicap placard #1 ea 04/16/24 insulin lispro 100 unit/mL subcutaneous pen (Humalog KwikPen (U-100) Insulin) 20 unit subcut TID dm 05/13/24 insulin glargine 100 unit/mL (3 mL) subcutaneous pen (Lantus Solostar U-100 Insulin) 50 unit (0.5 mL) subcut QHS #45 mL 05/27/24 carvedilol 6.25 mg tablet 6.25 mg PO BID #180 tabs 06/06/24 meclizine 12.5 mg tablet 12.5 - 25 mg (1 - 2 x 12.5 mg) PO Q8H PRN PRN dizziness #30 tabs 06/21/24 losartan 50 mg tablet 50 mg PO DAILY bp #84 TABLETS 07/14/24 divalproex 125 mg capsule,delayed release sprinkle 125 mg PO BID bipolar #56 caps 07/15/24 rabeprazole 20 mg tablet,delayed release (AcipHex) 20 mg PO QDAY #30 tabs 07/24/24 gabapentin 600 mg tablet 600 mg PO BID for neuropathy #60 TABLETS 08/20/24 ticagrelor 90 mg tablet 90 mg PO BID #180 tabs 08/21/24 atorvastatin 80 mg tablet 80 mg PO QHS Hyperlipidemia #100 tabs 09/03/24 colestipol 1 gram tablet 1 g PO DAILY cholesterol #100 tabs 09/03/24 levothyroxine 112 mcg tablet 112 mcg PO MOTUWETHFR thyroid #90 tabs 09/03/24 albuterol sulfate 90 mcg/actuation aerosol inhaler 2 puff inhalation Q6H PRN Wheezing #8.5 grams 09/05/24 apixaban 5 mg tablet (Eliquis) 5 mg PO BID blood thinner #180 tabs 09/11/24 doxycycline hyclate 100 mg capsule 100 mg PO BID #14 caps 09/19/24 Hospital Course Summary of Care Provided Minutes Spent on Discharge: 35 Physical Exam Narrative GENERAL: cooperative HEENT: Atraumatic; normocephalic EYES; Anicteric, Normal Conjunctiva NECK; supple, normal thyroid, RESPIRATORY: Diminished to auscultation CARDIOVASCULAR: Regular S1 S2, GI: soft, normoactive bowel sounds, : No Renal angle tenderness; EXTREMITIES: No edema, no clubbing, MUSCULOSKELETAL: no muscle wasting NEURO: Awake; no lateralizing signs. SKIN: No Rash PSYCH; Flat affect Weight / BMI Weight Weight: 69.6 kg Body Mass Index (BMI) 30.9 ABG / Lab / Microbiology Data 09/19/24 04:51 09/19/24 04:51 Laboratory: Laboratory Results - last 24 hr 09/18/24 05:51: Iron 25 L, TIBC 384, Iron Saturation 6.0 L, Unsaturated IBC 359, Ferritin 21 L 09/18/24 11:03: POC Glucose 181 H 09/18/24 16:56: POC Glucose 195 H 09/18/24 21:19: POC Glucose 67 L 09/18/24 23:02: POC Glucose 169 H 09/19/24 04:51: WBC 8.5, RBC 3.29 L, Hgb 8.9 L, Hct 28.3 L, MCV 86.0, MCH 27.1, MCHC 31.4 L, RDW Std Deviation 59.0 H, RDW Coeff of Yaw 18.7 H, Plt Count 442, MPV 8.7, Immature Gran % (Auto) 0.600, Neut % (Auto) 61.8, Lymph % (Auto) 25.9, [place] % (Auto) 7.5, Eos % (Auto) 3.4, Baso % (Auto) 0.8, Absolute Neuts (auto) 5.2, Absolute Lymphs (auto) 2.19, Nucleated RBC % 0, Sodium 133, Potassium 3.1 L , Chloride 104, Carbon Dioxide 18.9 L, Anion Gap 11, BUN 29 H, Creatinine 1.27 H , Estim Creat Clear Calc 36.90 L, Est GFR (MDRD) Non-Af 46 L, BUN/Creatinine Ratio 22.5 H, Glucose 104 H, Calcium 8.1, Phosphorus 2.8, Magnesium 2.1, Total Bilirubin 0.20, AST 13, ALT 12, Alkaline Phosphatase 91, Total Protein 6.0, Albumin 3.5, Globulin 2.5, Albumin/Globulin Ratio 1.4 09/19/24 06:51: POC Glucose 101 09/19/24 08:19: POC Glucose 117 H Microbiology: Microbiology 09/18/24 03:30 Stool Enteric Bacteriology - Final 09/18/24 03:30 Stool Clostridioides difficile (PCR) - Final D/C Instructions Discharge Diet: 1800 Calorie Control Diet Discharge Activity: Return to Normal Activity Call your doctor if you observe: Fever of 101 or Higher, Shortness of breath, Fainting spells and Chest pain DC O2, CPAP, BIPAP Needs Home O2 Discharge instructions: No Meaningful Use Info Meaningful Use Meaningful Use Diagnoses (Choose all that apply): None applicable Ischemic Stroke Statin Dosing Therapy Reference: STATIN DOSE THERAPY REFERENCE: * Patients > 75 years receive moderate or high dose statin therapy. * Patients 75 years or YOUNGER should receive HIGH intensity statin dose unless contraindicated. You will be required to document reason for non-treatment if statin daily dose does not meet guidelines. HIGH DOSE STATIN THERAPY DAILY Atorvastatin > than or = to 40 mg Rosuvastatin > than or = to 20 mg Amlodipine + Atorvastatin > than or = to 2.5/40 mg Ezetimibe + Simvastatin 10/80 mg Simvastatin 80mg Discharge Plan Admission Admit Date/Time: 09/17/24 22:19 Attending Provider: Bassem Schwartz Primary Care Provider: Denise Uribe Consulting Providers: Franck Butler; Jailyn Wiggins Discharge Orders/Prescriptions Prescriptions: New doxycycline hyclate 100 mg capsule 100 mg PO BID Qty: 14 0RF Continued (DME) lancets Misc See Rx Instructions .ROUTE .MEDSUPPLY Qty: 300 0RF Rx Instructions: Check 3 times a day and as needed (DME) TENS 502 Device See Rx Instructions .Route Qty: 1 0RF Rx Instructions: As directed rabeprazole [AcipHex] 20 mg tablet,delayed release (DR/EC) 20 mg PO QDAY Qty: 30 1RF insulin lispro [Humalog KwikPen Insulin] 100 unit/mL insulin pen 20 unit subcut TID nitroglycerin [Nitrostat] 0.4 mg tablet, sublingual 0.4 mg sublingual Q5-15M PRN (Reason: chest pain) Qty: 25 3RF Rx Instructions: do not exceed 3 doses per episode (DME) OneTouch Verio test strips Strip See Rx Instructions .ROUTE .MEDSUPPLY Qty: 300 3RF Rx Instructions: Check 3 times a day and as needed (DME) blood-glucose meter [OneTouch Verio Flex meter] [facility] [place] See Rx Instructions .Route Qty: 1 0RF Rx Instructions: As directed amitriptyline 50 mg tablet 50 mg PO QHS Qty: 90 3RF (DME) pen needle, diabetic [BD Ultra-Fine Sophia Pen Needle] 32 gauge x 5/32 needle See Rx Instructions .Route Qty: 400 3RF Rx Instructions: qid icosapent ethyl [Vascepa] 1 gram capsule 2 g PO BID Qty: 120 5RF allopurinol 100 mg tablet 100 mg PO QHS Qty: 90 11RF nystatin [Nyamyc] 100,000 unit/gram powder 1 applic topical BID PRN (Reason: for infectious disease) Qty: 30 11RF (DME) FreeStyle Marilyn 14 Day Sensor Kit See Rx Instructions .ROUTE .MEDSUPPLY Qty: 6 3RF Rx Instructions: As directed (DME) handicap placard See Rx Instructions .ROUTE .MEDSUPPLY Qty: 1 0RF Rx Instructions: Length of time: 1 years Diagnosis: Impaired physical mobility Z74.09 insulin glargine [Lantus Solostar U-100 Insulin] 100 unit/mL (3 mL) insulin pen 50 unit subcut QHS Qty: 45 1RF carvedilol 6.25 mg tablet 6.25 mg PO BID Qty: 180 3RF Rx Instructions: must administer with a meal/food meclizine 12.5 mg tablet 12.5 - 25 mg PO Q8H PRN PRN (Reason: dizziness) Qty: 30 1RF losartan 50 mg tablet 50 mg PO DAILY Qty: 84 0RF divalproex 125 mg capsule, delayed rel sprinkle 125 mg PO BID Qty: 56 1RF gabapentin 600 mg tablet 600 mg PO BID Qty: 60 0RF ticagrelor 90 mg tablet 90 mg PO BID Qty: 180 3RF atorvastatin 80 mg tablet 80 mg PO QHS Qty: 100 1RF Rx Instructions: cholesterol colestipol 1 gram tablet 1 g PO DAILY Qty: 100 1RF levothyroxine 112 mcg tablet 112 mcg PO MOTUWETHFR Qty: 90 0RF albuterol sulfate 90 mcg/actuation HFA aerosol inhaler 2 puff INHALATION Q6H PRN (Reason: Wheezing) Qty: 8.5 1RF Eliquis 5 mg tablet 5 mg PO BID Qty: 180 3RF Referrals / Follow Up: Denise Uribe MD [Primary Care Provider] - Within 2 Weeks Disposition Disposition (needs filled in before D/C Order can be placed): Home, Self Care Charges/Coding Visit Charges Inpatient E&M: 69427 Disch Hosp >30min
--- NOTE | 2024-09-19 11:07 | CASEMGMT ---
RN CM noted DC order in. No needs identified. 6 clicks 23. Pt to DC home with family support.
[2024-09-19] MEDS: Potassium Chloride Oral Tablet 20 MEQ 40 MEQ PO ×2 (11:57→14:15)
[2024-09-19] MEDS: Insulin Lispro 100 UNIT/ML INSULN.PEN 20 UNIT SC (12:41)
[2024-09-19] MEDS: Insulin Lispro 100 UNIT/ML INSULN.PEN SC (12:42)
[2024-09-19 13:01] LABS: Bedside Glucose 237 mg/dL (74-106)
== END 2024-09-19 14:24 | disposition home or self-care (01) | DRG 392 ==
LOC: ED 22:33 → PCU 22:49
PROVIDERS: Admitting Provider Family Medicine; Emergency Provider Emergency Medicine; PCP Internal Medicine; Visit Provider Internal Medicine
DX: K52.9 Noninfective gastroenteritis and colitis, unspecified (principal); E87.1 Hypo-osmolality and hyponatremia; E87.20 Acidosis, unspecified; N17.9 Acute kidney failure, unspecified; N18.30 Chronic kidney disease, stage 3 unspecified; F31.9 Bipolar disorder, unspecified; E11.65 Type 2 diabetes mellitus with hyperglycemia; I12.9 Hypertensive chronic kidney disease with stage 1 through stage 4 chronic kidney disease, or unspecified chronic kidney disease; E03.9 Hypothyroidism, unspecified; E66.811 Obesity, class 1; E11.22 Type 2 diabetes mellitus with diabetic chronic kidney disease; I48.0 Paroxysmal atrial fibrillation; Z79.4 Long term (current) use of insulin; I25.10 Atherosclerotic heart disease of native coronary artery without angina pectoris; M10.9 Gout, unspecified; E11.42 Type 2 diabetes mellitus with diabetic polyneuropathy; F17.210 Nicotine dependence, cigarettes, uncomplicated; E87.5 Hyperkalemia; E78.5 Hyperlipidemia, unspecified; K21.9 Gastro-esophageal reflux disease without esophagitis; E87.8 Other disorders of electrolyte and fluid balance, not elsewhere classified; F41.9 Anxiety disorder, unspecified; Z79.01 Long term (current) use of anticoagulants; Z90.710 Acquired absence of both cervix and uterus; Z79.85 Long-term (current) use of injectable non-insulin antidiabetic drugs; Z79.890 Hormone replacement therapy; Z95.5 Presence of coronary angioplasty implant and graft; Z79.02 Long term (current) use of antithrombotics/antiplatelets; Z82.49 Family history of ischemic heart disease and other diseases of the circulatory system; Z83.3 Family history of diabetes mellitus; Z68.31 Body mass index [BMI] 31.0-31.9, adult; Z91.048 Other nonmedicinal substance allergy status; Z88.8 Allergy status to other drugs, medicaments and biological substances
CPT/HCPCS: 36415; 36600; 74018; 74177; 80053; 81001; 82010; 82728; 82803; 82962; 83540; 83550; 83605; 83690; 83735; 84100; 85025; 85045; 85610; 85730; 87493; 87506; 94668; 99284; 99406; Q9967; A4216

== ENCOUNTER 2024-11-15 18:16 | Emergency (ER) | payer MEDICARE, MEDICAID, SELFPAY ==
[2020-06-04 12:24] VITALS: BMI 26.4
[2024-11-15] VITALS (13 sets, daily range): BP systolic 77–175; BP diastolic 51–96; PULSE 62–81; RESP 17–26; TEMP 36.8–37.1; O2SAT 95–100; BMI 32.9
[2024-11-15 18:37] LABS: Absolute Lymphocyte Count 1.65 X10^3/uL (0.83-4.51); Absolute Neutrophil Count 5.6 X10^3/uL (2.0-7.7); Basophil# 0.06 X10^3/uL; Basophil% 0.7 % (0-1); Eosinophil# 0.19 X10^3/uL; Eosinophils% 2.3 % (0-5); Hematocrit 27.3 % (37-47); Hemoglobin 8.8 g/dL (12.0-15.0); Lymphocyte # 1.65 X10^3/ul (0.83-4.51); Lymphocyte % 19.5 % (19-41); Mean Corp Hgb Conc 32.2 g/dL (32-36); Mean Corpuscular Hgb 27.6 pg (27.0-32.0); Mean Corpuscular Volume 85.6 fL (81-99); Mean Platelet Vol. 8.9 fl (6.2-12.0); Monocyte# 0.75 X10^3/uL; Monocyte% 8.9 % (0-10); NRBC Flagged by Analyzer 0 % (0-5); Neutrophil # 5.63 X10^3/uL (2.7-7.7); Neutrophil % 66.7 % (47-70); Platelet Count 458 K/mm3 (150-450); RBC Distribution Width CV 18.4 % (11.6-14.6); RBC Distribution Width SD 57.3 fl (35.1-43.9); Red Blood Count 3.19 M/mm3 (4.2-5.4); White Blood Count 8.4 K/mm3 (4.4-11.0)
--- NOTE | 2024-11-15 19:05 | CT_ITS ---
EXAM: BRAIN/HEAD WITHOUT CONTRAST CLINICAL HISTORY: 69 y/o F with BLURRED VISION. COMPARISON: None. TECHNIQUE: Routine CT imaging of the head without IV contrast. Additional multiplanar reformats were obtained. Dose reduction techniques were used including intermediate exposure control (AEC),iterative reconstruction technique, and/or mA and/or KV dose adjustments based on patient's size. FINDINGS: The ventricles, sulci and cisterns are normal for patient age. There is no evidence of acute intracranial hemorrhage or herniation. There is no midline shift, mass effect, or extra-axial collection. Mild scattered supratentorial white matter hypodensities. The fernández-white matter interfaces are otherwise maintained. The orbits, visualized paranasal sinuses and mastoids are unremarkable. No acute calvarial fracture or scalp hematoma. CT/Brain/Head without Contrast IMPRESSION: No acute intracranial finding. Reading Location: [id number]
--- NOTE | 2024-11-15 19:10 | RAD_ITS ---
EXAM: XR Chest, 1 View CLINICAL INDICATION: CHEST PAIN TECHNIQUE: Frontal view of the chest. COMPARISON: No relevant prior studies available. FINDINGS: LUNGS AND PLEURAL SPACES: Unremarkable. No consolidation. No pneumothorax. HEART: Cardiomegaly without overt failure. MEDIASTINUM: Unremarkable. Normal mediastinal contour. BONES/JOINTS: Unremarkable. No acute fracture. RAD/Chest 1 View (Portable) IMPRESSION: Cardiomegaly without overt failure. Reading Location: [id number]
[2024-11-15 19:16] LABS: Troponin T High Sensitivity 14 ng/L (<=14)
--- NOTE | 2024-11-15 19:22 | EX.ED.DYSGE1 ---
HPI <TAMMY Cope - Last Filed: 11/15/24 22:06> History of Present Illness Chief Complaint: Weakness Narrative Narrative: Patient presenting today with multiple vague complaints. She reports that yesterday she developed midsternal chest pain that has since improved. She started feeling short of breath yesterday, this has improved today but she still is feeling mildly dyspneic. She also feels generally weak. She has a PMH of CKD, HTN, T2DM, CAD, HLD, bipolar disorder, and paroxysmal A-fib on Eliquis. She reports that over the past year she has had intermittent dizziness that she describes as a room spinning sensation. She has been worked up for this as an outpatient with no clear cause. She has had head imaging in the past. She reports that she is currently feeling dizzy. She also reports her vision feels blurred. She denies recent illness, fevers, chills, history of stroke, nausea, and vomiting. PFS <TAMMY Coep - Last Filed: 11/15/24 22:06> FORMERLY [facility] Medical History Recurrent falls Chronic anemia Acute kidney injury Bipolar disorder Umbilical hernia Hypothyroidism Hiatal hernia Gout Essential hypertension Atrial fibrillation Overweight (BMI 25.0-29.9) Polyneuropathy due to type 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 GFR 30-59 Fibromyalgia affecting multiple sites Shoulder pain, bilateral Hip pain, bilateral Tachybradycardia syndrome Near syncope Generalized OA Atherosclerotic heart disease of [place] coronary artery without angina pectoris Abnormal stress test Hypertension Chronic pancreatic insufficiency Depression Home Medications ?Medication ?Instructions ?Recorded ?Last Taken ?Type lancets #300 ea 01/24/23 Unknown Rx nitroglycerin 0.4 mg sublingual 0.4 mg sublingual Q5-15M PRN chest 10/04/23 Unknown Rx tablet (Nitrostat) pain #25 tabs blood sugar diagnostic (OneTouch #300 ea 11/29/23 Unknown Rx Verio test strips) blood-glucose meter (OneTouch #1 ea 11/29/23 Unknown Rx Verio Flex Meter) TENS units (TENS 502 device) #1 ea 12/05/23 Unknown Rx pen needle, diabetic 32 gauge x #400 ea 02/27/24 Unknown Rx (BD Ultra-Fine Sophia Pen Needle) allopurinol 100 mg tablet 100 mg PO QHS gout #90 tabs 03/18/24 05/12/24 Rx nystatin 100,000 unit/gram topical 1 applic topical BID PRN for 03/19/24 05/12/24 Rx powder ([facility]) infectious disease #30 GMS flash glucose sensor (FreeStyle #6 ea 03/21/24 Unknown Rx Marilyn 14 Day Sensor kit) handicap placard #1 ea 04/16/24 Unknown Rx insulin lispro 100 unit/mL 20 unit subcut TID diabetes 05/13/24 05/12/24 History subcutaneous pen (Humalog KwikPen (U-100) Insulin) insulin glargine 100 unit/mL (3 50 unit (0.5 mL) subcut QHS 05/27/24 Unknown Rx mL) subcutaneous pen (Lantus diabetes #45 mL Solostar U-100 Insulin) carvedilol 6.25 mg tablet 6.25 mg PO BID blood pressure #180 06/06/24 Unknown Rx tabs ticagrelor 90 mg tablet 90 mg PO BID #180 tabs 08/21/24 Unknown Rx atorvastatin 80 mg tablet 80 mg PO QHS Hyperlipidemia #100 09/03/24 Unknown Rx tabs colestipol 1 gram tablet 1 g PO DAILY cholesterol #100 tabs 09/03/24 Unknown Rx levothyroxine 112 mcg tablet 112 mcg PO MOTUWETHFR thyroid #90 09/03/24 Unknown Rx tabs albuterol sulfate 90 mcg/actuation 2 puff inhalation Q6H PRN Wheezing 09/05/24 Unknown Rx aerosol inhaler #8.5 grams apixaban 5 mg tablet (Eliquis) 5 mg PO BID blood thinner #180 tabs 09/11/24 Unknown Rx amitriptyline 50 mg tablet 50 mg PO QHS sleep #90 tabs 09/23/24 Unknown Rx icosapent ethyl 1 gram capsule 2 g (2 x 1 gram) PO BID #120 caps 10/07/24 Unknown Rx (Vascepa) losartan 50 mg tablet 50 mg PO DAILY blood pressure #84 10/21/24 Unknown Rx TABLETS rabeprazole 20 mg tablet,delayed 20 mg PO DAILY for acid reflux #30 10/28/24 Unknown Rx release TABLETS divalproex 125 mg capsule,delayed 125 mg PO BID bipolar #56 caps 11/12/24 Unknown Rx release sprinkle Allergy/AdvReac Type Severity Reaction Status Date / Time duloxetine (From Cymbalta) Allergy Itching Verified 09/17/24 17:10 Environmental Allergies: Allergy Cough Verified 09/17/24 17:10 Uncoded tomato Allergy Itching Verified 09/17/24 17:10 diphenhydramine (From AdvReac Severe other Verified 09/17/24 17:10 Benadryl) isosorbide AdvReac Intermediate Other Verified 09/17/24 17:10 adhesive tape (plastic tape) AdvReac Rash Verified 09/17/24 17:10 semaglutide (From Ozempic) AdvReac Diarrhea Verified 09/17/24 17:10 Family History Sister COPD (chronic obstructive pulmonary disease) Mother COPD (chronic obstructive pulmonary disease) Hypertension Alzheimer's dementia without behavioral disturbance Father Diabetes Hypertension Myocardial infarction Parkinsons disease Surgical History History of surgical procedure History of laparoscopic appendectomy History of total abdominal hysterectomy Hx of cholecystectomy Hx of shoulder surgery Presence of stent in coronary artery (~09/06/21) Social History household members: family current occupational status: retired 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 Smoking Status: Current every day smoker tobacco type: cigarettes Electronic Cigarette Use: not used alcohol intake: never substance use type: does not use caffeine: No what type of physical activity do you participate in: none do you feel safe at home: Yes ROS <TAMMY Cope - Last Filed: 11/15/24 22:06> ROS ED Constitutional Constitutional ED: Denies chills or fever(s) Eyes Eyes: Reports blurry vision Cardiovascular Cardiovascular: Reports chest pain Respiratory/Chest Respiratory/Chest: Reports dyspnea; Denies cough or wheezing Gastrointestinal Gastrointestinal: Denies abdominal pain, nausea or vomiting Genitourinary Genitourinary ED: Denies dysuria, hematuria or urinary urgency Musculoskeletal Musculoskeletal: Denies arthralgias or myalgias Integumentary Denies rash Neurologic Neurologic: Reports weakness EXAM <TAMMY Cope - Last Filed: 11/15/24 22:06> Physical Exam Const Vital Signs: 11/15/24 18:17 11/15/24 18:42 11/15/24 18:43 Temperature 98.7 F Temperature Source Oral Pulse Rate 62 65 Respiratory Rate 20 H 17 Respiratory Effort Respiratory Pattern Blood Pressure 77/51 L 135/62 H Blood Pressure Mean 59 86 Pulse Ox 95 97 Oxygen Delivery Method Room Air Room Air 11/15/24 18:44 11/15/24 18:45 11/15/24 19:00 Temperature Temperature Source Pulse Rate 63 Respiratory Rate 20 H Respiratory Effort Normal Non-Labored Respiratory Pattern Normal Blood Pressure 108/61 116/58 L Blood Pressure Mean 76 74 Pulse Ox 96 Oxygen Delivery Method 11/15/24 19:15 11/15/24 19:15 11/15/24 19:30 Temperature Temperature Source Pulse Rate 66 Respiratory Rate 24 H Respiratory Effort Respiratory Pattern Blood Pressure 105/66 105/66 104/55 L Blood Pressure Mean 77 77 67 Pulse Ox 96 95 Oxygen Delivery Method 11/15/24 19:54 11/15/24 20:00 11/15/24 20:00 Temperature Temperature Source Pulse Rate 77 69 67 Respiratory Rate 18 24 H Respiratory Effort Respiratory Pattern Blood Pressure 125/59 H Blood Pressure Mean 81 Pulse Ox 95 96 98 Oxygen Delivery Method 11/15/24 20:17 11/15/24 20:30 11/15/24 20:45 Temperature Temperature Source Pulse Rate 69 70 74 Respiratory Rate 25 H 24 H 26 H Respiratory Effort Respiratory Pattern Blood Pressure 125/59 H 124/64 H Blood Pressure Mean 80 83 Pulse Ox 96 95 95 Oxygen Delivery Method 11/15/24 21:00 Temperature Temperature Source Pulse Rate 81 Respiratory Rate 25 H Respiratory Effort Respiratory Pattern Blood Pressure 175/96 H Blood Pressure Mean 113 Pulse Ox 100 Oxygen Delivery Method Positive well nourished, well developed and no apparent distress General Appearance ED: well developed HEENT Reports normocephalic and head/scalp atraumatic Mouth ED: Yes moist mucous membranes normal Eyes PERRL and EOMs intact bilaterally Neck full ROM and supple Chest Wall inspection of chest normal Resp normal respiratory effort and clear to auscultation bilaterally Cardio regular rate and regular rhythm GI soft to palpation, non-tender, non-distended and no masses Back/Spine normal ROM and normal to inspection Extremity normal to inspection and full ROM Neuro oriented x3, CN's II-XII intact bilaterally, moves all extremities, no focal motor deficits and no sensory deficits noted Neuro Narrative: NIH 0 Sensorium / Orientation: awake and alert Motor Exam: strength 5/5 throughout Psych mental status grossly normal and thought process normal Skin no rashes or lesions noted and no wounds <Dr. Sanju Hernandez MD - Last Filed: 11/15/24 22:01> Physical Exam Const Vital Signs: 11/15/24 18:17 11/15/24 18:42 11/15/24 18:43 Temperature 98.7 F Temperature Source Oral Pulse Rate 62 65 Respiratory Rate 20 H 17 Respiratory Effort Respiratory Pattern Blood Pressure 77/51 L 135/62 H Blood Pressure Mean 59 86 Pulse Ox 95 97 Oxygen Delivery Method Room Air Room Air 11/15/24 18:44 11/15/24 18:45 11/15/24 19:00 Temperature Temperature Source Pulse Rate 63 Respiratory Rate 20 H Respiratory Effort Normal Non-Labored Respiratory Pattern Normal Blood Pressure 108/61 116/58 L Blood Pressure Mean 76 74 Pulse Ox 96 Oxygen Delivery Method 11/15/24 19:15 11/15/24 19:15 11/15/24 19:30 Temperature Temperature Source Pulse Rate 66 Respiratory Rate 24 H Respiratory Effort Respiratory Pattern Blood Pressure 105/66 105/66 104/55 L Blood Pressure Mean 77 77 67 Pulse Ox 96 95 Oxygen Delivery Method 11/15/24 19:54 11/15/24 20:00 11/15/24 20:00 Temperature Temperature Source Pulse Rate 77 69 67 Respiratory Rate 18 24 H Respiratory Effort Respiratory Pattern Blood Pressure 125/59 H Blood Pressure Mean 81 Pulse Ox 95 96 98 Oxygen Delivery Method 11/15/24 20:17 11/15/24 20:30 11/15/24 20:45 Temperature Temperature Source Pulse Rate 69 70 74 Respiratory Rate 25 H 24 H 26 H Respiratory Effort Respiratory Pattern Blood Pressure 125/59 H 124/64 H Blood Pressure Mean 80 83 Pulse Ox 96 95 95 Oxygen Delivery Method 11/15/24 21:00 Temperature Temperature Source Pulse Rate 81 Respiratory Rate 25 H Respiratory Effort Respiratory Pattern Blood Pressure 175/96 H Blood Pressure Mean 113 Pulse Ox 100 Oxygen Delivery Method MDM <TAMMY Cope - Last Filed: 11/15/24 22:06> [facility] MDM Narrative Medical decision making narrative: Patient presenting today with multiple vague complaints. She reports feeling generally weak. She had some chest pain and dyspnea yesterday that has since improved. Her O2 saturation is 100% on room air. Low suspicion for PE given she is on Eliquis and compliant with this. She has chronic dizziness and is currently feeling dizzy. She has been worked up for this in the past and has had prior head imaging. However, head CT was obtained here and is negative for any acute findings. Given her generalized weakness, broad workup obtained, her CBC reveals a hemoglobin of 8.8 which is consistent with previous labs. Her sodium is 130, she does have a history of hyponatremia. BUN 20, UA is contaminated and does not show evidence of UTI. Troponin is negative. Triage note also reported confusion, she is not confused on my exam, she is alert and oriented x 4. She reports complete resolution of her dizziness on reexamination, she is feeling well and is wanting to go home. She will be discharged in stable condition. Recommended she have close follow-up with her PCP. I have personally performed a face to face assessment of the patient and have reviewed the CAMELIA Note. I performed a substantive portion of the visit including all aspects of the following. My billings findings include: History is 69-year-old female evaluated with our physician journeyman operator assistant. Patient complaining of generalized weakness. Exam is [well-appearing 69-year-old female. Vital signs are stable. She is afebrile. She does not appear to be septic toxic or in distress. Her initial BP was 77/51 currently its 105/66. She is afebrile. Pulse ox is 96% on room air no hypoxia. H EENT exam pupils round reactive light. Moist mucous membranes. Neck nontender no JVD no lymphadenopathy. Lungs clear to auscultation bilateral. Heart regular rhythm rate about 65 no murmur. Chest wall and ribs nontender. Abdomen soft nontender. Moving all 4 extremities. Calves are nontender without edema or cords. Neurologically she is awake alert. Answering questions following commands. She knows the month, year and president. She knows where she is hide. She has no focal motor deficits.] Medical Decision Making [69-year-old female general malaise.] Other additions or changes: [None] Lab Data Labs: Laboratory Results - last 24 hr 11/15/24 11/15/24 11/15/24 18:25 19:58 21:14 WBC 8.4 RBC 3.19 L Hgb 8.8 L Hct 27.3 L MCV 85.6 MCH 27.6 MCHC 32.2 RDW Std Deviation 57.3 H RDW Coeff of Yaw 18.4 H Plt Count 458 H MPV 8.9 Immature Gran % (Auto) 1.900 H Neut % (Auto) 66.7 Lymph % (Auto) 19.5 [place] % (Auto) 8.9 Eos % (Auto) 2.3 Baso % (Auto) 0.7 Absolute Neuts (auto) 5.6 Absolute Lymphs (auto) 1.65 Nucleated RBC % 0 Sodium 130 L Potassium 4.6 Chloride 96 L Carbon Dioxide 19.7 L Anion Gap 15 BUN 20 H Creatinine 1.18 Estim Creat Clear Calc 40.97 L Est GFR (MDRD) Non-Af 50 L BUN/Creatinine Ratio 17.0 Glucose 179 H Calcium 8.3 Troponin T High Sens 14 Troponin T Hi Sens 2 Hr 15 H Urine Color Yellow Urine Clarity Clear Urine pH 5.0 Ur Specific [place] 1.010 Urine Protein 30 H Urine Glucose (UA) 250 H Urine Ketones Negative Urine Occult Blood Negative Urine Nitrite Negative Urine Bilirubin Negative Urine Urobilinogen Normal Ur Leukocyte Esterase 25 H Urine RBC 0 SEEN Urine WBC 0-5 SEEN Ur Squamous Epith Cells 5-10 SEEN Urine Bacteria 1+ Urine Mucus 0 SEEN Radiography Diagnostic Testing: Clinical Impression(s) from Imaging Studies Brain CT 11/15/24 19:05 IMPRESSION: No acute intracranial finding. Reading Location: [facility] Chest X-Ray 11/15/24 19:10 IMPRESSION: Cardiomegaly without overt failure. Reading Location: [id number] EKG Initial EKG: Comments: 63 bpm, normal sinus rhythm, no ST elevation, interpreted by attending ED physician <Dr. Sanju Hernandez MD - Last Filed: 11/15/24 22:01> MDM MDM Narrative Medical decision making narrative: I have personally performed a face to face assessment of the patient and have reviewed the CAMELIA Note. I performed a substantive portion of the visit including all aspects of the following. My billings findings include: History is 69-year-old female evaluated with our physician journeyman operator assistant. Patient complaining of generalized weakness. Exam is [well-appearing 69-year-old female. Vital signs are stable. She is afebrile. She does not appear to be septic toxic or in distress. Her initial BP was 77/51 currently its 105/66. She is afebrile. Pulse ox is 96% on room air no hypoxia. H EENT exam pupils round reactive light. Moist mucous membranes. Neck nontender no JVD no lymphadenopathy. Lungs clear to auscultation bilateral. Heart regular rhythm rate about 65 no murmur. Chest wall and ribs nontender. Abdomen soft nontender. Moving all 4 extremities. Calves are nontender without edema or cords. Neurologically she is awake alert. Answering questions following commands. She knows the month, year and president. She knows where she is hide. She has no focal motor deficits.] Medical Decision Making [69-year-old female general malaise.] Other additions or changes: [None] Lab Data Attestation: I reviewed the patient's lab results. Lab results narrative: CBC shows a white count 8. H&H 8.8 and 28 is her baseline anemia. platelets 458. Electrolytes show sodium 130. Gap 15. BUN and creatinine 21.1. Glucose 179. Troponin 14. Labs: Laboratory Results - last 24 hr 11/15/24 11/15/24 11/15/24 18:25 19:58 21:14 WBC 8.4 RBC 3.19 L Hgb 8.8 L Hct 27.3 L MCV 85.6 MCH 27.6 MCHC 32.2 RDW Std Deviation 57.3 H RDW Coeff of Yaw 18.4 H Plt Count 458 H MPV 8.9 Immature Gran % (Auto) 1.900 H Neut % (Auto) 66.7 Lymph % (Auto) 19.5 [place] % (Auto) 8.9 Eos % (Auto) 2.3 Baso % (Auto) 0.7 Absolute Neuts (auto) 5.6 Absolute Lymphs (auto) 1.65 Nucleated RBC % 0 Sodium 130 L Potassium 4.6 Chloride 96 L Carbon Dioxide 19.7 L Anion Gap 15 BUN 20 H Creatinine 1.18 Estim Creat Clear Calc 40.97 L Est GFR (MDRD) Non-Af 50 L BUN/Creatinine Ratio 17.0 Glucose 179 H Calcium 8.3 Troponin T High Sens 14 Troponin T Hi Sens 2 Hr 15 H Urine Color Yellow Urine Clarity Clear Urine pH 5.0 Ur Specific [place] 1.010 Urine Protein 30 H Urine Glucose (UA) 250 H Urine Ketones Negative Urine Occult Blood Negative Urine Nitrite Negative Urine Bilirubin Negative Urine Urobilinogen Normal Ur Leukocyte Esterase 25 H Urine RBC 0 SEEN Urine WBC 0-5 SEEN Ur Squamous Epith Cells 5-10 SEEN Urine Bacteria 1+ Urine Mucus 0 SEEN Radiography Chest X-Ray - ED: Read by ED Physician, Read by Radiologist, Lungs, Mediastinum, Bony Structures, No Acute Disease, Chronic Changes and Cardiomegaly Diagnostic Testing: Clinical Impression(s) from Imaging Studies Brain CT 11/15/24 19:05 IMPRESSION: No acute intracranial finding. Reading Location: [facility] Chest X-Ray 11/15/24 19:10 IMPRESSION: Cardiomegaly without overt failure. Reading Location: [facility] Chest x-ray, portable, single view, interpreted by myself and radiologist shows cardiomegaly. No failure. No pneumonia. No acute process. Chronic changes. Rhythm Strip Rhythm Strip: Sinus Rhythm Rate: 63 Ectopy: None EKG Initial EKG: Attestation: I personally reviewed and interpreted this EKG as follows: Interpretation: Sinus Rhythm and No Acute Injury Pattern Discharge Plan Triage Chief Complaint: Weakness ED Midlevel Provider: Lacey Eastman ED Provider: Sanju Hernandez Dx/Rx/DC Orders Clinical Impression: Dizziness, Chronic anemia, Generalized weakness, Chronic anticoagulation Instructions: ED Dizziness, Uncertain Cause, ED Weakness Uncertain Cause Prescriptions: No Action (DME) lancets Misc See Rx Instructions .ROUTE .MEDSUPPLY Qty: 300 0RF Rx Instructions: Check 3 times a day and as needed (DME) TENS 502 Device See Rx Instructions .Route Qty: 1 0RF Rx Instructions: As directed insulin lispro [Humalog KwikPen Insulin] 100 unit/mL insulin pen 20 unit subcut TID nitroglycerin [Nitrostat] 0.4 mg tablet, sublingual 0.4 mg sublingual Q5-15M PRN (Reason: chest pain) Qty: 25 3RF Rx Instructions: do not exceed 3 doses per episode (DME) OneTouch Verio test strips Strip See Rx Instructions .ROUTE .MEDSUPPLY Qty: 300 3RF Rx Instructions: Check 3 times a day and as needed (DME) blood-glucose meter [OneTouch Verio Flex meter] Misc See Rx Instructions .Route Qty: 1 0RF Rx Instructions: As directed (DME) pen needle, diabetic [BD Ultra-Fine Sophia Pen Needle] 32 gauge x 5/32 needle See Rx Instructions .Route Qty: 400 3RF Rx Instructions: qid allopurinol 100 mg tablet 100 mg PO QHS Qty: 90 11RF nystatin [Nyamyc] 100,000 unit/gram powder 1 applic topical BID PRN (Reason: for infectious disease) Qty: 30 11RF (DME) FreeStyle Marilyn 14 Day Sensor Kit See Rx Instructions .ROUTE .MEDSUPPLY Qty: 6 3RF Rx Instructions: As directed (DME) handicap placard See Rx Instructions .ROUTE .MEDSUPPLY Qty: 1 0RF Rx Instructions: Length of time: 1 years Diagnosis: Impaired physical mobility Z74.09 insulin glargine [Lantus Solostar U-100 Insulin] 100 unit/mL (3 mL) insulin pen 50 unit subcut QHS Qty: 45 1RF carvedilol 6.25 mg tablet 6.25 mg PO BID Qty: 180 3RF Rx Instructions: must administer with a meal/food ticagrelor 90 mg tablet 90 mg PO BID Qty: 180 3RF atorvastatin 80 mg tablet 80 mg PO QHS Qty: 100 1RF Rx Instructions: cholesterol colestipol 1 gram tablet 1 g PO DAILY Qty: 100 1RF levothyroxine 112 mcg tablet 112 mcg PO MOTUWETHFR Qty: 90 0RF albuterol sulfate 90 mcg/actuation HFA aerosol inhaler 2 puff INHALATION Q6H PRN (Reason: Wheezing) Qty: 8.5 1RF Eliquis 5 mg tablet 5 mg PO BID Qty: 180 3RF amitriptyline 50 mg tablet 50 mg PO QHS Qty: 90 0RF icosapent ethyl [Vascepa] 1 gram capsule 2 g PO BID Qty: 120 5RF losartan 50 mg tablet 50 mg PO DAILY Qty: 84 0RF rabeprazole 20 mg tablet,delayed release (DR/EC) 20 mg PO DAILY Qty: 30 1RF divalproex 125 mg capsule, delayed rel sprinkle 125 mg PO BID Qty: 56 1RF Primary Care Provider: Denise Uribe Referrals: Denise Uribe MD [Primary Care Provider] - 5-7 Days Activity Restrictions/Additional Instructions: Follow-up with your PCP and return for any other concerns or worsening symptoms. Print Language: Croatian Disposition Disposition: Home, Self Care
[2024-11-15 19:47] LABS: Anion Gap 15 (5-15); BUN 20 mg/dL (4-19); Calcium,Total 8.3 mg/dL (7.6-11.0); Carbon Dioxide 19.7 mmol/L (21.0-32.0); Chloride 96 mmol/L (98-108); Creatinine, Serum 1.18 mg/dL (0.70-1.20); EST Glomerular Filtration Rate 50 (>60); Estimated Creatinine Clearance 40.97 ml/min (50-250); Glucose 179 mg/dL (70-99); Potassium 4.6 mmol/L (3.3-5.1); Sodium Level 130 mmol/L (133-145)
--- OUTSIDE RECORDS SUMMARY | 2024-11-15 19:50 | XMS RPT_ITS | CCD ---
Author Organization [facility] Care Team Providers Care Registration Manager Name Role Phone NO REFERRING DR Unavailable Unavailable SHEETS, JAMEL C Unavailable Unavailable SHEETS, JAMEL C Unavailable Unavailable SHEETS, JAMEL C Unavailable Unavailable SHEETS, JAMEL Gee Unavailable Unavailable Yamila Hayden Unavailable Yamila Hayden Primary Care Provider Yamila Hayden Primary Care Provider Servando Clay Unavailable Unavailable Yamila Hayden Unavailable Unavailable Yamila Hayden Unavailable Unavailable Unknown, Referring Provider Unavailable Unav ailable Yamila Hayden Unavailable Unavailable Free, Text Entry Unavailable Unavailable Manocchio, Mayra Unavailable Unavailable Pending Provider Unavailable Unavailable Unavailable Unavailable No, Physician Primary Care Provider Unavailabl e PARAIL, JESSICA CHAN Admitting Unavaila ble NO, PHYSICIAN Primary Care Unavailable PARAIL, JESSICA CHAN Attending Unavaila ble NO, PHYSICIAN Primary Care Unavailable PARAIL, JESSICA CHAN Admitting Unavaila ble NO, PHYSICIAN Primary Care Unavailable PARAIL, JESSICA CHAN Admitting Unavaila ble PARAIL, JESSICA CHAN Attending Unavaila ble DEMARCUS FREY Attending Unavailable NO, PHYSICIAN Primary Care Unavailable DEMARCUS FREY Admitting Unavailable DEMARCUS FREY Attending Unavailable DANI FARLEY Referring Unavailable NO, PHYSICIAN Primary Care Unavailable PARAIL, JESSICAELBERT CHAN Admitting Unavaila ble PARAIL, JESSICA CHAN Attending Unavaila ble NO, PHYSICIAN Primary Care Unavailable PARAIL, JESSICAELBERT CHAN Attending Unavaila ble NO, PHYSICIAN Primary Care Unavailable PARAIL, JESSICAELBERT CHAN Admitting Unavaila ble PARAIL, JESSICA CHAN Referring Unavaila ble NO, PHYSICIAN Primary Care Unavailable PEPITO JOY Attending Unavailable Dr. Pat Bennett Primary Care Provider Dr. Pat Bennett Attending Provider [phone] Dr. Pat Bennett Referring Provider [phone]) SILVIA Romero Attending Provider Octavio NEURODIAGNOSTIC TECHNICIAN, NEURODIAGNOSTIC TECHNICIAN-C Daina Attending Provider Dr. Dani Farley Attending Provider Dr. Bravo Dominique Attending Provider Dr. Jonathan Polk Emergency Provider Dr. Carrillo Buckley Attending Provider Dr. Carrillo Buckley Admit Provider Dr. Carrillo Buckley Other Provider Dr. Franck Butler Attending Provider Dr. Franck Butler Other Provider Dr. Gwendolyn Busby Other Provider Dr. Gwendolyn Busby Attending Provider Danny KRAMER NP-C Devi Attending Provider [phone] Dr. Pat Benentt Primary Care Provider Dr. Pat Bennett Referring Provider [phone] FILIBERTO Cunningham NPC Daina Referring Provider Dr. Gwendolyn Busby Referring Provider 1([facility])[phone] Jax Ford Attending Provider TAMMY Marion Attending Provider Unavailab Dr. Pat Mccoy Primary Care Provider Dr. Pat Bennett Referring Provider [phone] SILVIA Romero Attending Provider SERVANDO CLAY Attending Unavailable Pending, Provider Primary Care Unavailable THOMAE, SERVANDO Referring Unavailable Pending, Provider Primary Care Unavailable THOMAE, SERVANDO Referring Unavailable THOMSERVANDO SRINIVASAN Attending Unavailable Dr. Pat Bennett Primary Care Provider Dr. Pat Bennett Referring Provider [phone] TAMMY Marion Attending Provider Unavailab Dr. Dani Flores Attending Provider [phone] SILVIA Romero Attending Provider Dr. Pat Bennett Primary Care Provider Dr. Pat Bennett Referring Provider [phone]) Dr. Pat Bennett Attending Provider 1(330) Dr. Pat Bennett Primary Care Provider Dr. Pat Bennett Attending Provider 1(330) Dr. Snaju Hernandez Emergency Provider Dr. Daljit Mg Admit Provider Dr. Daljit Mg Other Provider Dr. Dior Alva Other Provider Dr. Carrillo Buckley Attending Provider Dr. Carrillo Buckley Other Provider Dr. Dior Alva Attending Provider Dr. Franck Butler Attending Provider Dr. Bassem Schwartz Attending Provider Unavailable Dr. Bassem Schwartz Other Provider Unavailable Mayra Bridges Unavailable Unavailabl e Pending, Provider Primary Care Unavailable Mayra Bridges Attending Unavailabl e Pending, Provider Primary Care Unavailable PCP, Pt States None Referring Unavailable Servando Clay Attending Unavailable Dr. Pat Bennett Primary Care Provider Dr. Bassem Schwartz Referring Provider Unavailable Dr. Pat Bennett Referring Provider [phone]) Danny KRAMER, WILLIAMS-Marlen Bellamy Attending Provider 1(330) Dr. Pat Bennett Primary Care Provider Dr. Sanju Hernandez Emergency Provider Dr. Daljit Mg Admit Provider Dr. Daljit Mg Other Provider Dr. Dior Alva Other Provider Dr. Carrillo Buckley Attending Provider Dr. Carrillo Buckley Other Provider Dr. Dior Alva Attending Provider Dr. Bassem Schwartz Referring Provider Unavailable Dr. Franck Butler Attending Provider Dr. Bassem Schwartz Attending Provider Unavailable Dr. Bassem Schwartz Other Provider Unavailable Dr. Pat Bennett Referring Provider Delgado NEURODIAGNOSTIC TECHNICIAN, NEURODIAGNOSTIC TECHNICIAN-C Devi Attending Provider Dr. Pat Bennett Primary Care Provider Dr. Sanju Hernandez Emergency Provider Dr. Daljit Mg Admit Provider Dr. Daljit Mg Other Provider Dr. Dior Alva Other Provider Dr. Carrillo Buckley Attending Provider Dr. Carrillo Buckley Other Provider Dr. Pat Bennett Referring Provider Delgado NEURODIAGNOSTIC TECHNICIAN, NEURODIAGNOSTIC TECHNICIAN-C Devi Primary Care Provider Delgado NEURODIAGNOSTIC TECHNICIAN, NEURODIAGNOSTIC TECHNICIAN-C Devi Referring Provider Dr. Seven Garcia Attending Provider Delgado NEURODIAGNOSTIC TECHNICIAN, NEURODIAGNOSTIC TECHNICIAN-C Devi Primary Care Provider Delgado NEURODIAGNOSTIC TECHNICIAN, NEURODIAGNOSTIC TECHNICIAN-C Devi Referring Provider Dr. Seven Garcia Attending Provider Dr. Pat Bennett Referring Provider Delgado NEURODIAGNOSTIC TECHNICIAN, NEURODIAGNOSTIC TECHNICIAN-C Devi Attending Provider Delgado NEURODIAGNOSTIC TECHNICIAN, NEURODIAGNOSTIC TECHNICIAN-C Devi Primary Care Provider Delgado NEURODIAGNOSTIC TECHNICIAN, NEURODIAGNOSTIC TECHNICIAN-C Devi Referring Provider Dr. Denise Uribe Attending Provider [phone]) Dr. Denise Uribe Primary Care Provider TAMMY Belle Attending Provider Dr. Seven Garcia Attending Provider Danny NEURODIAGNOSTIC TECHNICIAN, NEURODIAGNOSTIC TECHNICIAN-C Devi Referring Provider 1(330) Dr. Denise Uribe Primary Care Provider Dr. Denise Uribe Referring Provider 1(330) Dr. Jb Marcelino Attending Provider 1(330) Dr. Denise Uribe Attending Provider 1(330) Dr. Denise Uribe Primary Care Provider Dr. Denise Uribe Referring Provider 1(330) Dr. Seven Garcia Attending Provider Dr. Jb Marcelino Attending Provider 1(330) Dr. Denise Uribe Attending Provider 1(330) TAMMY Belle Attending Provider Dr. Hernando Colón Attending Provider [phone] Dr. Denise Uribe Primary Care Provider Dr. Denise Uribe Referring Provider 1(330) Dr. Seven Garcia Attending Provider Dr. Jb Marcelino Attending Provider 1(330) Dr. Denise Uribe Attending Provider 1(330) TAMMY Belle Attending Provider Dr. Hernando Colón Attending Provider [phone] Dr. Denise Uribe MD Primary Care Provider [phone] Humaira Belle Attending Provider [phone] Humaira Belle Referring Provider [phone] Dr. Carrillo Handley MD Attending Provider 1(330) Humaira Belle Other Provider Saranya LOPEZ, Dr. Leal Attending Provider Moreno LYNNE, Dr. Ott Emergency Provider LamEdwar DO, Dr. Luevano Admit Provider Unavail able LamEdwar DO, Dr. Luevano Other Provider Unavail able Forrest LOPEZ, Dr. Davie Tarango Other Provider Geetha LOPEZ, Dr. Harry Nance Attending Provider Rosalie LOPEZ, Dr. Jailyn Mendez Other Provider Rosalie LOPEZ, Dr. Jailyn Mendez Attending Provider Eldon LOPEZ, Dr. Villagomez Attending Provider ga Edwar DO, Dr. Luevano Referring Provider Unav aliceable Forrest LOPEZ, Dr. Davie Tarango Attending Provider Geetha LOPEZ, Dr. Harry Nance Referring Provider Dr. Jb Jackson MD Attending Provider Geetha LOPEZ, Dr. Harry Nance Other Provider Dr. Canelo Gil DO Emergency Provider Rosalie LOPEZ, Dr. Jailyn Mendez Admit Provider Rosalie LOPEZ, Dr. Jailyn Mendez Referring Provider Dr. Dvei Paredes DO Attending Provider Lena LYNNE, Dr. Bellamy Other Provider Dr. Denise Uribe MD Attending Provider Jojo LOPEZ, Dr. Walker Referring Provider Dr. Denise Uribe MD Primary Care Provider Dr. Jb Jackson MD Attending Provider Dr. Carrillo Lenz DO Emergency Provider Rosalie LOPEZ, Dr. Jailyn Mendez Attending Provider Denise Uribe Primary Care Unavailable Devi Paredes Attending Unavailable White, Jailyn L Referring Unavailable White, Jailyn L Consulting Unavailable White, Jailyn L Admitting Unavailable Jojo, Denise Primary Care Unavailable Bassem Schwartz Attending Unavailable White, Jailyn L Admitting Unavailable Franck Butler Consulting Unavailable White, Jailyn L Consulting Unavailable Jb Jackson Attending Unavailable Bassem Diamond Consulting Unavailable Bassem Diamond Admitting Unavailable Monticello, Denise Primary Care Unavailable Davie Clayton Consulting Unavailable Rosalie, Jailyn L Consulting Unavailable Bassem Diamond Consulting Unavailable Bassem Diamond Admitting Unavailable Harry Iniguez Attending Unavailable Jojo, Denise Primary Care Unavailable Davie Clayton Consulting Unavailable White, Jailyn L Consulting Unavailable Harry Iniguez Attending Unavailable Harry Iniguez Consulting Unavailable Davie Clayton Attending Unavailable Bassem Diamond Referring Unavailable Jojo, Denise Primary Care Unavailable Hernando Colón Attending Unavailable Bassem Diamond Referring Unavailable Jojo, Denise Primary Care Unavailable Hernando Colón Attending Unavailable Carrillo Handley Attending Unavailable FerulloDesiree Referring Unavailable Monticello, Denise Primary Care Unavailable Seth Romero Referring Unavailable Seth Romero Attending Unavailable Jojo, Denise Primary Care Unavailable Jojo, Denise Primary Care Unavailable Humaira Belle Referring Unavail able Humaira Belle Attending Unavail able [place]icello, Denise Primary Care Unavailable Robby Kirkpatrick Attending Unavailable Dhruv Romeron Referring Unavailable [place], Denise Primary Care Unavailable Seth Romero Attending Unavailable FerulloDesiree Attending Unavailable [place], Denise Primary Care Unavailable FerulloKarleneDesiree Referring Unavailable Jojo, Denise Attending Unavailable Jojo, Denise Primary Care Unavailable [place]ic[place], Denise Referring Unavailable Bassem Diamond Attending Unavailable Jojo, Denise Primary Care Unavailable Devi Paredes Attending Unavailable White, Jailyn L Referring Unavailable White, Jailyn L Consulting Unavailable White, Jailyn L Admitting Unavailable Devi Paredes Consulting Unavailable [place], Denise Primary Care Unavailable Bassem Schwartz Referring Unavailable White, Jailyn L Admitting Unavailable Franck Butler Attending Unavailable Franck Butler Consulting Unavailable White, Jailyn L Consulting Unavailable Bassem Schwartz Consulting Unavailable Bassem Schwartz Attending Unavailable White, Jailyn L Attending Unavailable White, Jailyn L Attending Unavailable Harry Iniguez Referring Unavailable White, Jailyn L Attending Unavailable Desiree Penny Attending Unavailable Jojo, Denise Primary Care Unavailable Monticello, Denise Referring Unavailable FerulloKarleneDesiree Attending Unavailable [place], Denise Primary Care Unavailable [place], Denise Referring Unavailable [place], Denise Attending Unavailable Jojo, Denise Primary Care Unavailable Jojo, Denise Referring Unavailable Seth Romero Attending Unavailable Jojo, Denise Referring Unavailable Monticello, Denise Primary Care Unavailable [place], Denise Referring Unavailable [place], Denise Primary Care Unavailable Humaira Belle Attending Unavail able [place], Denise Attending Unavailable Jojo, Denise Referring Unavailable Jojo, Denise Primary Care Unavailable Jojo, Denise Primary Care Unavailable Mel Beaver Attending Unavailabl e Humaira Belle Referring Unavail able Humaira Belle Consulting Unavail able Seth Romero Attending Unavailable [place], Denise Primary Care Unavailable Jojo, Denise Referring Unavailable Carrillo Handley Attending Unavailable Jojo, Denise Primary Care Unavailable Humaira Belle Referring Unavail able Jojo, Denise Primary Care Unavailable Jb Marcelino Attending Unavailable Humaira Belle Referring Unavail able RonJamaal Referring Unavailable Jojo, Denise Primary Care Unavailable Jamaal Velasquez Attending Unavailable Jojo, Denise Attending Unavailable Jojo, Denise Primary Care Unavailable Jojo, Denise Referring Unavailable Monticello, Denise Attending Unavailable Jojo, Denise Primary Care Unavailable [place], Denise Referring Unavailable Desiree Penny Attending Unavailable Jojo, Denise Primary Care Unavailable Ferullo, Desiree Referring Unavailable Seth Romero Attending Unavailable Jojo, Denise Primary Care Unavailable [place], Denise Primary Care Unavailable Desiree Penny Attending Unavailable Dipakullo, Desiree Referring Unavailable [place], Denise Primary Care Unavailable Humaira Belle Attending Unavail able Humaira Belle Referring Unavail able Desiree Penny Attending Unavailable Denise Uribe Primary Care Unavailable Desiree Penny Referring Unavailable Allergies Allergy Classification Reported Allergen(s) Allergy Type Date of Onset Reaction(s) Facility (1 source) pantoprazole; 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: [PROTONIX] Drug Allergy [facility] Repository (20 sources) tomato allergenic extract; 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: [TOMATO] Drug Allergy 04-18-20 18 Itching [facility] Repository (20 sources) DULoxetine Drug Allergy 02-27-20 18 [facility] Work Phone: (11 sources) DULoxetine; 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: [Cymbalta] Drug Allergy Hypertension [facility] Work Phone: (9 sources) Tomatoes Allergy to substance (finding) [facility] Work Phone: (20 sources) DULoxetine; 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: [DULOXETINE] Drug Allergy 02-27-20 18 Hives, Other (See Comments), Itching, Unknown [facility] (8 sources) tomato allergenic extract; 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: [TOMATO (SOLANUM LYCOPERSICUM)] Drug Allergy 11-27-19 20 Itching [facility] (8 sources) Other; 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: [OTHER] Propensity to adverse reactions 04-18-20 18 Unknown [facility] (20 sources) Isosorbide; 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: [isosorbide] Drug Allergy 12-11-19 Headache and chest pain, Other [facility] (18 sources) Adhesive Tape; 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: [adhesive tape] Propensity to adverse reactions 03-28-20 Rash [facility] (11 sources) diphenhydrAMINE Drug Allergy 11-18-19 23 other [facility] (2 sources) ozempic Allergy to substance 11-18-19 Diarrhea [facility] (9 sources) semaglutide Drug Allergy 03-31-20 23 Diarrhea [facility] (4 sources) Environmental Allergies: Uncoded; 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: [Environmental Allergies: Uncoded] Allergy to substance 07-25-19 [facility] (1 source) diphenhydrAMINE Drug Allergy 09-18-19 [facility] Repository (1 source) DULoxetine Drug Allergy 09-18-19 [facility] Repository (1 source) semaglutide Drug allergy (disorder) 09-18-19 [facility] Repository Medications Current Medications Medication Drug Class(es) Dates Sig (Normalized) Sig (Original) [id number] 200 actuat albuterol 0.09 mg/actuat metered dose inhaler (20 sources) beta2-Adrenergic Agonist Start: 08-31-2020 End: 09-05-2024 Start: 08-31-2020 End: 12-20-2021 Start: 08-31-2020 End: 12-20-2021 take 1 puff(s) by inhalation every six hours Albuterol Sulfate Discontinued 2 PUFF INHALATION EVERY 6 HOURS 8.5 October 27, 2021 12:29pm December 20, 2021 2:14pm albuterol 90 mcg /inh inhalation aerosol with adapter Quantity: 0 Refills: 0 Ordered: 14-Mar-2022 Safia Grimes Generic Substitution Allowed take 2 puff(s) by in halation four times daily as needed Albuterol Sulfate HFA 108 (90 Base) MCG/ACT Inhalation Aerosol Solution INHALE 2 PUFFS 4 times daily PRN Quantity: 3 Refills: 3 Ordered: 28-May-2020 Yamila Hayden MD Active take 2 puff(s) by in halation four times daily as needed Albuterol Sulfate HFA 108 (90 Base) MCG/ACT Inhalation Aerosol Solution INHALE 2 PUFFS 4 times daily PRN Quantity: 3 Refills: 3 Ordered: 28-May-2020 Yamila Hayden MD Active take 2 puff(s) by in halation four times daily as needed Albuterol Sulfate HFA 108 (90 Base) MCG/ACT Inhalation Aerosol Solution INHALE 2 PUFFS 4 times daily PRN Quantity: 3 Refills: 3 Yamila Hayden MD Active 8.5 GM Inhaler Albuterol 90 MCG /ACT AERS Refills: 0 Active apixaban 5 mg oral tablet (20 sources) Factor Xa Inhibitor Start: 08-19-2020 End: 09-11-2024 take 1 tablet by mouth twice renan ly Eliquis 2.5 mg oral tablet ; 1 tab(s) orally 2 times a day Quantity: 0 Refills: 0 Ordered: 14-Mar-2022 Cornelio Safia Generic Substitution Allowed Eliquis 2.5 MG O ral Tablet Quantity: 0 Refills: 0 Ordered: 06-Jan-2022 DO Active atorvastatin 80 mg oral tabl et (20 sources) HMG-CoA Reductase Inhibitor Start: 03-04-2020 End: 03-11-2020 Start: 02-28-2019 End: 09-03-2024 Start: 02-28-2019 take 1 tablet by dale th once daily Atorvastatin Calcium 20 MG Oral Tablet Take 1 tablet by mouth daily Quantity: 90 Refills: 1 Yamila Hayden MD Start : 28-Feb-2019 Active Blood-Glucose Meter (Onetouc h Verio Flex Start) kit (19 sources) Start: 11-11-2020 Blood-Glucose Meter (Onetouch Verio Flex Start) kit Active 0 .ROUTE .MEDSUPPLY November 11, 2020 12:20pm Twice daily and as needed Start: 11-11-2020 Blood-Glucose Meter (Onetouch Verio Flex Start) kit Active 0 .ROUTE .MEDSUPPLY November 10, 2020 11:00pm Twice daily and as needed Start: 11-11-2020 Blood-Glucose Meter (Onetouch Verio Flex Start) kit Active 0 .ROUTE .MEDSUPPLY November 11, 2020 12:00am Twice daily and as needed Chondroitin Sulfates / Glucosamine (7 sources) GLUCOSAMINE-ZAKIA DROITIN PO Take by mouth 2 times daily. 0 Active colestipol hydrochloride 1000 mg oral tablet (20 sources) Bile Acid Sequestrant Start: 0 End: 5 take 2 tablets by mouth twice da herrera colestipol 1 g oral tablet ; 2 tab(s) orally 2 times a day Quantity: 0 Refills: 0 Ordered: 14-Mar-2022 Cornelio Safia Generic Substitution Allowed take 2 tablets by mouth twice da herrera COLESTIPOL HCL PO Take 2 tablets by mouth 2 times daily. 0 Active Dosoquin 5500-200 Unit-McG Po Tabs (6 sources) Start: 02-26-2018 take 1 tablet by mouth once daily Vitamin D-Vitamin K (DOSOQUIN) 5500-200 UNIT-MCG Tab Indications: Vitamin D deficiency , Hypomagnesemia , Anemia, unspecified type 1 po q day 30 tablet 11 02/26/2018 Active Elastic Bandages & Supports (WRIST SPLINT ELASTIC/LARGE-XL) [facility] (20 sources) Start: 02-26-2018 Elastic Bandag es & Supports (WRIST SPLINT ELASTIC/LARGE-XL) [facility] Indications: Cervicalgia , Dorsalgia , Paresthesia of both hands , Bilateral carpal tunnel syndrome , Bilateral foot pain , Disorder of bone and cartilage , Chronic pain of both shoulders , Fibromyalgia , Bilateral biceps tendonitis , Tendonitis of both rotator cuffs , Bilateral elbow joint pain , Lateral epicondylitis of both elbows , Bilateral medial epicondylitis of elbow joint , Bilateral wrist pain , Bilateral hand pain , Osteoarthritis of both hands, unspecified osteoarthritis type , Weakness of both hands , Left hip pain , Greater trochanteric bursitis of left hip , Chronic pain of left knee , Osteoarthritis of both feet, unspecified osteoarthritis type , Fatigue, unspecified type , 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 , long-term current use of non-steroidal anti-inflammatories (NSAID) , Hypertension, unspecified type , Gastroesophageal reflux disease, esophagitis presence not specified , Hypothyroidism, unspecified type , Type II diabetes mellitus with neurological manifestations , Lower abdominal pain B/L wrist splints for B/L CTS 2 Each 11 02/26/2018 Active Flash Glucose Sensor (Freestyle Marilyn 14 Day Sensor) kit (19 sources) Start: 07-26-2021 Flash Glucose Sensor (Freestyle Marilyn 14 Day Sensor) kit Active 0 .ROUTE .MEDSUPPLY 2 July 26, 2021 4:22pm As directed Start: 07-26-2021 Flash Glucose Sensor (Freestyle Marilyn 14 Day Sensor) kit Active 0 .ROUTE .MEDSUPPLY 2 July 26, 2021 12:00am As directed Start: 07-26-2021 Flash Glucose Sensor (Freestyle Marilyn 14 Day Sensor) kit Active 0 .ROUTE .MEDSUPPLY 2 July 26, 2021 1:00am As directed furosemide 40 mg oral tablet (2 sources) Loop Diuretic Start: 10-12-2021 take 40 mg by mouth once daily Furosemide Active 40 MG PO .COMPLEX October 12, 2021 4:16pm 40 mg PO daily for 3 days; gabapentin 600 mg oral tablet (20 sources) Anti-epileptic Agent Start: 11-29-2023 End: 08-20-2024 Start: 11-07-2021 End: 11-24-2023 Start: 03-04-2020 End: 10-27-2021 Start: 11-07-2019 take 2 capsules by m outh three times daily Gabapentin 300 MG Oral Capsule Take 2 capsules by mouth 3 times daily Quantity: 540 Refills: 1 Ordered: 25-Dec-2019 Yamila Hayden MD Start : 07-Nov-2019 Active Start: 10-16-2019 End: 10-16-2019 take 200 mg by mouth three times daily 200 mg, Oral, 3 TIMES DAILY, First dose on Mon10/16/19 at 0045, Until Discontinued gabapentin 300 m g oral tablet ; orally once a day Quantity: 0 Refills: 0 Ordered: 14-Mar-2022 Hauenstein, Safia Generic Substitution Allowed take 1 tablet by dale three times daily gabapentin (NEURONTIN) 600 MG tablet Take 600 mg by mouth 3 (three) times a day * . 0 Active take 2 tablets by mo ut three times daily gabapentin 100 MG Cap capsule Take 300 mg by mouth 2 times daily. 2 tabs TID 0 Active Homeopathic Products (ALLERGY MEDICINE PO) (7 sources) Homeopathic Prod ucts (ALLERGY MEDICINE PO) Take by mouth daily as needed. 0 Active icosapent ethyl 1000 mg oral capsule (6 sources) Start: 12-06-2023 End: 02-27-2024 insulin glargine,hum.rec.anlog (LANTUS SOLOSTAR U-100 INSULIN SUBQ) (5 sources) inject 40 [IU] by subcutaneous injection at bedtime insulin glargine,hum.rec.anl og (LANTUS SOLOSTAR U-100 INSULIN SUBQ) Inject 40 Units under the skin at bedtime . 0 Active levothyroxine sodium 0.112 mg oral tablet (20 sources) l-Thyroxin e Start: 11-07-2019 End: 09-03-2024 Start: 10-16-2019 End: 10-16-2019 take 50 ug by mouth once daily 50 mcg, Oral, DAILY, Fi rst dose on Mon10/16/19 at 0600, Until Discontinued take 1 capsule by mo ut once daily levothyroxine 112 mcg (0.112 mg) oral capsule ; 1 cap(s) orally once a day Quantity: 0 Refills: 0 Ordered: 14-Mar-2022 Hauenstein, Safia Generic Substitution Allowed levothyroxine 50 MCG Tab tablet Take 112 mcg by mouth daily. 0 Active take 1 tablet by dale th once daily levothyroxine 50 MCG Tab tablet Take 50 mcg by mouth daily. 0 Active metoclopramide 10 mg oral tablet (2 sources) Dopamine-2 Receptor Antagonist Start: 07-20-2022 take 10 mg by mouth every twelve hours as needed Metoclopramide Hcl Active 10 MG PO EVERY 12 HOURS NEEDED July 20, 2022 5:36pm Start: 10-15-2019 End: 10-15-2019 metoclopramide (REGLAN) inje ction 10 mg ondansetron 4 mg disintegrating oral tablet (20 sources) Serotonin-3 Receptor Antagonist Start: 08-15-2022 End: 08-16-2022 take 1 tablet by mouth three times daily as needed for nausea and vomiting ondansetron 4 mg oral tablet, disintegrating ; 1 tab(s) orally 3 times a day, As Needed -for nausea and vomiting Quantity: 6 Refills: 0 Ordered: 15-Aug-2022 Mayra Bridges Start: 15-Aug-2022 End: 16-Aug-2022 Generic Substitution Allowed Start: 11-16-2021 End: 12-10-2021 Start: 11-16-2021 End: 12-10-2021 take 4 mg by mouth every six hours as needed Ondansetron Discontinued 4 MG PO EVERY 6 HOURS NEEDED November 16, 2021 12:57pm December 10, 2021 1:31pm Start: 01-30-2020 End: 01-30-2020 take 4 mg intravenous route every four hours as needed ondansetron 4mg/2ml (ZOFRAN) injection 4 mg Start: 10-15-2019 End: 10-16-2019 take 4 mg intravenous route every four hours as needed 4 mg, Intravenous, EVERY 4 HOURS NEEDED, Starting Mon10/15/19 at 2300, Until Mon10/16/19 at 1403, Nausea / Vomiting Start: 05-03-2018 End: 05-03-2018 ondansetron 4mg/2ml (ZOFRAN) injection 4 mg Start: 05-03-2018 End: 03-04-2019 take 1 tablet by mouth every four hours as needed ondansetron 4 MG Tab Dispersible tablet Take 1 tablet by mouth every 4 hours as needed for Nausea. Place on tongue 30 tablet 0 05/03/2018 03/04/2019 Discontinued RABEprazole sodium 20 mg delayed release oral tablet (3 sources) Proton Pump Inhibitor Start: 07-24-2024 ticagrelor 90 mg oral tablet (20 sources) Start: 03-11-2020 End: 08-21-2024 varenicline 1 mg oral tablet (7 sources) Partial Cholinergic Nicotinic Agonist Start: 04-02-2023 End: 07-10-2023 take 1 tablet by mouth twice daily Varenicline (Chantix Continuing Month Box) 1 mg tablet Active 1 MG PO TWICE A DAY 60 July 10, 2023 1:22pm Vitamin D-Vitamin K (DOSOQUIN) 5500-200 UNIT-MCG Tab (20 sources) Start: 02-26-2018 take 1 tablet by mouth once daily Vitamin D-Vitamin K (DOSOQUIN) 5500-200 UNIT-MCG Tab Indications: Vitamin D deficiency , Hypomagnesemia , Anemia, unspecified type 1 po q day 30 tablet 11 02/26/2018 Active Wrist Splint Elastic/Large-Xl Misc (6 sources) Start: 02-26-2018 Elastic Bandages & Supports (WRIST SPLINT ELASTIC/LARGE-XL) Misc Indications: Cervicalgia , Dorsalgia , Paresthesia of both hands , Bilateral carpal tunnel syndrome , Bilateral foot pain , Disorder of bone and cartilage , Chronic pain of both shoulders , Fibromyalgia , Bilateral biceps tendonitis , Tendonitis of both rotator cuffs , Bilateral elbow joint pain , Lateral epicondylitis of both elbows , Bilateral medial epicondylitis of elbow joint , Bilateral wrist pain , Bilateral hand pain , Osteoarthritis of both hands, unspecified osteoarthritis type , Weakness of both hands , Left hip pain , Greater trochanteric bursitis of left hip , Chronic pain of left knee , Osteoarthritis of both feet, unspecified osteoarthritis type , Fatigue, unspecified type , 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 , 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) , Hypertension, unspecified type , Gastroesophageal reflux disease, esophagitis presence not specified , Hypothyroidism, unspecified type , Type II diabetes mellitus with neurological manifestations , Lower abdominal pain B/L wrist splints for B/L CTS 2 Each 11 02/26/2018 Active (20 sources) Start: 04-16-2024 Start: 03-21-2024 Start: 02-27-2024 Start: 12-05-2023 Start: 12-05-2023 End: 03-20-2024 Start: 11-29-2023 End: 03-21-2024 Start: 11-29-2023 Start: 11-29-2023 Start: 07-10-2023 End: 10-02-2023 Start: 07-10-2023 Start: 04-02-2023 End: 07-10-2023 Start: 01-30-2023 End: 02-27-2024 Start: 01-30-2023 Start: 01-30-2023 End: 12-05-2023 Start: 01-30-2023 Start: 01-24-2023 Start: 01-24-2023 End: 04-02-2023 Start: 09-27-2022 End: 01-30-2023 Start: 09-27-2022 Start: 08-26-2022 End: 09-27-2022 Start: 08-26-2022 Start: 02-07-2022 End: 09-27-2022 Start: 02-07-2022 Start: 11-10-2021 End: 08-26-2022 Start: 11-05-2021 End: 11-10-2021 Start: 07-26-2021 End: 11-29-2023 Start: 07-26-2021 Start: 11-12-2020 End: 01-24-2023 Start: 11-12-2020 Start: 11-12-2020 End: 11-29-2023 Start: 11-12-2020 Start: 11-12-2020 End: 11-12-2020 Start: 11-12-2020 End: 11-12-2020 Start: 11-11-2020 End: 11-29-2023 Start: 11-11-2020 Start: 11-11-2020 End: 11-12-2020 Start: 09-03-2020 End: 11-11-2020 Start: 09-03-2020 End: 11-11-2020 Start: 08-31-2020 End: 11-05-2021 Start: 08-31-2020 End: 09-03-2020 Start: 08-31-2020 End: 09-03-2020 Completed/Discontinued Medications Medication Drug Class(es) Dates Sig (Normalized) Sig (Original) acetaminophen 500 mg oral tablet (1 source) Start: 10-16-2019 End: 10-16-2019 take 1 tablet by mouth every six hours as needed 500 mg, Oral, EVERY 6 HOURS NEEDED, Starting Mon10/16/19 at 0100, Until Mon10/16/19 at 1403, Mild Pain acetaminophen 325 mg / HYDROcodone bitartrate 5 mg oral tablet (20 sources) Opioid Agonist Start: 09-11-2023 End: 10-02-2023 Start: 09-11-2023 Start: 11-16-2021 End: 01-14-2022 Start: 11-16-2021 End: 01-14-2022 Start: 11-16-2021 End: 01-14-2022 take 1 tablet by mouth every six hours as needed Hydrocodone-Acetaminophen Discontinued 1 TABLET PO EVERY 6 HOURS NEEDED 12 3 November 16, 2021 January 14, 2022 1:08pm Start: 01-30-2020 End: 02-06-2020 take 1-2 tablets by mouth every four hours as needed hydroCODone-acetaminophen 5-325 MG tablet Indications: Post-op pain Take 1-2 tablets by mouth every 4 hours as needed for up to 7 days. 25 tablet 0 01/30/2020 Active Start: 01-30-2020 End: 01-30-2020 take 1-2 tablets by mouth every four hours as needed hydroCODone-acetaminophen (NORCO) 5-325 MG per tablet 1-2 tablet allopurinol 100 mg oral tabl et (20 sources) Xanthine Oxidase Inhibitor Start: 03-04-2020 End: 03-18-2024 Start: 10-16-2019 End: 10-16-2019 take 100 mg by mouth once daily 100 mg, Oral, DAILY, First dose on Mon10/16/19 at 0045, Until Discontinued allopurinol 100 mg oral tablet ; orally once a day Quantity: 0 Refills: 0 Ordered: 14-Mar-2022 Safia Grimes Generic Substitution Allowed amitriptyline hydrochloride 50 mg oral tablet (20 sources) Tricyclic Antidepressant Start: 07-11-2023 End: 12-14-2023 Start: 07-11-2023 End: 08-11-2023 Start: 07-11-2023 End: 08-11-2023 take 50 mg by mouth at bedtime Amitriptyline Active 50 MG PO AT BEDTIME August 11, 2023 3:35pm amLODIPine 2.5 mg oral table t (20 sources) Dihydropyridine Calcium Channel Scot Start: 04-15-2020 End: 01-14-2022 amLODIPine Besyl ate TABS Quantity: 0 Refills: 0 Ordered: 28-May-2020 DO Active amLODIPine Besyl ate TABS Refills: 0 DO Active amoxicillin 875 mg / clavula sree 125 mg oral tablet (20 sources) Penicillin-class Antibacterial Start: 03-28-2022 End: 04-11-2022 Start: 03-28-2022 End: 04-11-2022 Start: 03-28-2022 End: 04-11-2022 take 1 tablet by mouth twice daily Amoxicillin-Pot Clavulanate Discontinued 1 TABLET PO TWICE A DAY March 28, 2022 1:00am April 11, 2022 3:33pm Start: 12-10-2021 End: 01-14-2022 Start: 12-10-2021 End: 01-14-2022 Start: 12-10-2021 End: 01-14-2022 take 1 tablet by mouth twice daily Amoxicillin-Pot Clavulanate Discontinued 1 TABLET PO TWICE A DAY December 10, 2021 12:00am January 14, 2022 1:06pm amylase [id number] unt / lipase 88630 unt / protease [id number] unt delayed release oral capsule (20 sources) Start: 07-16-2020 End: 07-31-2020 Start: 07-16-2020 End: 07-31-2020 Start: 02-20-2020 End: 07-31-2020 take [id number] capsules by mouth four times daily at mealtime Nmrkse-Ydjugomz-Zdoiewt (Creon) 24,000-76,000 -120,000 unit capsule,delayed release(DR/EC) Discontinued 2 CAP PO .qid July 16, 2020 1:00am July 31, 2020 1:07pm administer with meals and/or snacks amylases [id number] unt / endopeptidases 57254 unt / lipase [id number] unt delayed release oral capsule (1 source) Start: 02-20-2020 take 2 capsules by mouth four times daily Creon [id number] UNIT Oral Capsule Delayed Release Particles TAKE 2 CAPSULE 4 times daily Quantity: 240 Refills: 11 Servando Clay DO Start : 20-Feb-2020 Active ascorbic acid 60 mg / beta carotene 5000 unt / copper sulfate 40 mg / dl-alpha tocopheryl acetate 30 unt / sodium selenite 0.04 mg / zinc oxide 40 mg oral tablet (1 source) Vitamin C Senior Multivitamin Plus TABS Refills: 0 DO Active aspirin 81 mg delayed release oral tablet (20 sources) Platelet Aggregation Inhibitor, Nonsteroidal Anti-inflammatory Drug Start: 02-08-2021 End: 07-26-2021 Start: 03-11-2020 End: 08-19-2020 Aspirin 81 MG TA BS Quantity: 0 Refills: 0 Ordered: 17-Mar-2020 DO Active Aspirin 81 MG TA BS Refills: 0 DO Active 10 ml atropine sulfate 0.1 mg/ml prefilled syringe (1 source) Anticholinergic, Cholinergic Muscarinic Antagonist Start: 06-13-2019 End: 06-14-2019 atropine injection 0-2 mg atropine sulfate 0.025 mg / diphenoxylate hydrochloride 2.5 mg oral tablet (20 sources) Anticholinergic, Cholinergic Muscarinic Antagonist, Antidiarrheal Start: 07-03-2021 End: 07-26-2021 Start: 07-03-2021 End: 07-26-2021 Start: 07-03-2021 End: 07-26-2021 take 1 tablet by mouth three times daily Diphenoxylate-Atropine (Lomotil) 2.5-0.025 mg tablet Discontinued 1 TABLET PO THREE TIMES A DAY 21 7 July 03, 2021 6:40pm July 26, 2021 2:46pm Beclomethasone Dipropionate (11 sources) Corticosteroid Start: 11-17-2022 End: 01-24-2023 Start: 11-17-2022 End: 01-24-2023 take 40 ug by inhalation twice daily Beclomethasone Dipropionate (Qvar Redihaler) 40 mcg/actuation HFA aerosol breath activated Discontinued 2 INH INHALATION TWICE A DAY 10.6 November 17, 2022 12:00am January 24, 2023 2:02pm administer with spacer Start: 11-17-2022 End: 01-24-2023 take 40 ug by inhalation twice daily Beclomethasone Dipropionate (Qvar Redihaler) 40 mcg/actuation HFA aerosol breath activated Discontinued 2 INH INHALATION TWICE A DAY 10.6 November 16, 2022 11:00pm January 24, 2023 1:02pm administer with spacer Start: 11-17-2022 take 40 ug by inhala tion twice daily Beclomethasone Dipropionate (Qvar Redihaler) 40 mcg/actuation HFA aerosol breath activated Active 2 INH INHALATION TWICE A DAY 10.6 November 17, 2022 12:00am administer with spacer Start: 11-17-2022 benzonatate 100 mg oral capsule (20 sources) Non-narcotic Antitussive Start: 12-10-2021 End: 01-14-2022 Biotin (12 sources) Biotin TABS Quantity: 0 Refills: 0 Ordered: 24-Apr-2019 DO Active Biotin TABS Refi lls: 0 DO Active Biotin TABS Refi lls: 0 Active BIOTIN PO Take b y mouth 2 times daily. 0 Active Blood-Glucose Meter (Blood Glucose Monitoring) kit (20 sources) Start: 09-03-2020 End: 11-11-2020 Blood-Glucose Meter (Blood Glucose Monitoring) kit Discontinued 0 .ROUTE .MEDSUPPLY 1 September 03, 2020 7:22am November 11, 2020 11:21am Twice daily as directed Start: 09-03-2020 End: 11-11-2020 Blood-Glucose Meter (Blood G lucose Monitoring) kit Discontinued 0 .ROUTE .MEDSUPPLY 1 September 03, 2020 8:22am November 11, 2020 12:21pm Twice daily as directed Start: 08-31-2020 End: 09-03-2020 Blood-Glucose Meter (Blood G lucose Monitoring) kit Discontinued 0 .ROUTE .MEDSUPPLY 1 August 31, 2020 2:01pm September 03, 2020 8:22am Twice daily as directed Start: 08-31-2020 End: 09-03-2020 Blood-Glucose Meter (Blood G lucose Monitoring) kit Discontinued 0 .ROUTE .MEDSUPPLY 1 August 30, 2020 11:00pm September 03, 2020 7:22am Twice daily as directed Start: 08-31-2020 End: 09-03-2020 Blood-Glucose Meter (Blood G lucose Monitoring) kit Discontinued 0 .ROUTE .MEDSUPPLY 1 August 31, 2020 12:00am September 03, 2020 8:22am Twice daily as directed 30 ml bupivacaine hydrochloride 5 mg/ml injection (1 source) Amide Local Anesthetic Start: 01-30-2020 End: 01-30-2020 bupivacaine (PF) (MARCAINE) 0.5 % injection carvedilol 6.25 mg oral tablet (20 sources) alpha-Adrenergic Scot, beta-Adrenergic Scot Start: 09-18-2020 End: 06-06-2024 Start: 03-11-2020 End: 09-18-2020 Cholecalciferol (4 sources) Vitamin D Vitamin D CAPS R efills: 0 DO Active Vitamin D CAPS R efills: 0 Active clopidogrel 75 mg oral table t (20 sources) P2Y12 Platelet Inhibitor Start: 04-15-2020 End: 05-13-2020 dapagliflozin 10 mg oral tab let (20 sources) Sodium-Glucose Cotransporter 2 Inhibitor Start: 08-17-2022 End: 02-19-2024 dicyclomine hydrochloride 10 mg oral capsule (20 sources) Anticholinergic Start: 07-31-2020 End: 02-08-2021 diphenhydrAMINE hydrochlorid e 25 mg oral capsule (14 sources) Histamine-1 Receptor Antagonist Start: 09-15-2022 End: 09-27-2022 Start: 10-16-2019 End: 10-16-2019 take 25 mg by mouth once daily at bedtime as needed for sleep 25 mg, Oral, DAILY AT BEDTIME NEEDED, Starting Mon10/16/19 at 0100, Until Mon10/16/19 at 1403, Sleep Start: 10-15-2019 End: 10-15-2019 diphenhydrAMINE (BENADRYL) i njection 50 mg 250 ml DOBUTamine 2 mg/ml injection (1 source) beta-Adrenergic Agonist Start: 06-13-2019 End: 06-14-2019 DOBUTamine in dextrose 5% (DOBUTREX) 500 mg/250 ml premix infusion Dosoquin TABS (3 sources) Dosoquin TABS Refills: 0 Active 0.5 ml dulaglutide 1.5 mg/ml auto-injector (9 sources) GLP-1 Receptor Agonist Start: 03-31-2023 End: 07-11-2023 Start: 03-31-2023 End: 07-11-2023 Start: 03-31-2023 End: 07-11-2023 Dulaglutide (Trulicity) 0.75 mg/0.5 mL pen injector Discontinued 0.75 MG SC EVERY WEEK 2 March 31, 2023 1:00am July 11, 2023 4:15pm [id number] 0.3 ml EPINEPHrine 1 mg/ml auto-injector (12 sources) alpha-Adrenergic Agonist, beta-Adrenergic Agonist, Catecholamine Start: 09-15-2022 End: 07-11-2023 ergocalciferol 1.25 mg oral capsule (13 sources) Provitamin D2 Compound Start: 08-17-2022 End: 07-11-2023 escitalopram 10 mg oral tabl et (20 sources) Serotonin Reuptake Inhibitor Start: 07-26-2021 End: 07-11-2023 Start: 07-26-2021 End: 07-11-2023 take 2 tablets by mouth once daily Escitalopram Oxalate (Lexapro) 10 mg tablet Discontinued 20 MG PO DAILY August 04, 2022 9:26pm July 11, 2023 3:41pm take 1 tablet by dale th once daily Lexapro 20 mg oral tablet ; 1 tab(s) orally once a day Quantity: 0 Refills: 0 Ordered: 14-Mar-2022 Safia Grimes Generic Substitution Allowed Lexapro 20 MG Or al Tablet Quantity: 0 Refills: 0 Ordered: 06-Jan-2022 DO Active ferrous sulfate 324 mg delay ed release oral tablet (13 sources) Start: 08-17-2022 End: 12-05-2023 fluconazole 150 mg oral tabl et (20 sources) Azole Antifungal Start: 03-28-2022 End: 07-11-2023 Start: 12-10-2021 End: 01-14-2022 2 ml gentamicin 40 mg/ml injection (1 source) Start: 01-30-2020 End: 01-30-2020 gentamicin (GARAMYCIN) injection Glucosamine Chond Complex/MSM TABS (3 sources) Glucosamine Zakia d Complex/MSM TABS Refills: 0 Active guaiFENesin 400 mg oral tablet (20 sources) Start: 12-10-2021 End: 01-14-2022 hydroCHLOROthiazide 25 mg oral tablet (20 sources) Thiazide Diuretic Start: 01-14-2022 End: 05-03-2022 Start: 05-25-2020 End: 07-16-2020 Start: 05-25-2020 End: 07-16-2020 take 12.5 mg by mouth once daily Hydrochlorothiazide Discontinued 12.5 MG PO DAILY May 25, 2020 1:00am July 16, 2020 2:07pm hydroCHLOROthiazide 25 mg / triamterene 37.5 mg oral tablet (20 sources) Potassium-sparing Diuretic, Thiazide Diuretic Start: 09-11-2023 End: 06-18-2024 Start: 09-11-2023 Start: 08-06-2022 End: 09-27-2022 Start: 08-06-2022 End: 09-27-2022 Start: 08-06-2022 End: 09-27-2022 take 1 tablet by mouth once daily Triamterene-Hydrochlorothiazid Discontinued 1 TABLET PO DAILY September 07, 2022 10:38am September 27, 2022 3:57pm Start: 07-31-2020 End: 11-10-2021 take 1 tablet by mouth once daily Triamterene-Hydrochlorothiazid Discontinued 1 TABLET PO DAILY October 27, 2021 12:32pm November 10, 2021 9:22am Start: 07-16-2020 End: 11-10-2021 Start: 07-16-2020 End: 11-10-2021 Start: 07-16-2020 End: 07-31-2020 take 1 tablet by mouth once daily Triamterene-Hydrochlorothiazid (Maxzide-25mg) 37.5-25 mg tablet Discontinued 1 TABLET PO DAILY July 16, 2020 1:00am July 31, 2020 1:09pm Start: 03-04-2020 End: 05-25-2020 Start: 03-04-2020 End: 05-25-2020 Start: 03-04-2020 End: 05-25-2020 take 1 tablet by mouth once daily Triamterene-Hydrochlorothiazid Discontinued 1 TABLET PO DAILY May 13, 2020 3:24pm May 25, 2020 10:50am Start: 02-28-2019 take 1 tablet by dale th once daily Triamterene-HCTZ 37.5-25 MG Oral Tablet Take 1 tablet by mouth daily Quantity: 90 Refills: 1 Yamila Hayden MD Start : 28-Feb-2019 Active take 1 capsule by mo [facility] once daily triamterene-hydrochlorothiazide (DYAZIDE) 37.5-25 mg per capsule Take 1 capsule by mouth daily . 0 Active hydrOXYzine hydrochloride 25 mg oral tablet (20 sources) Antihistamine Start: 03-04-2020 End: 07-26-2021 Start: 11-28-2019 take 1 tablet by dale every four to six hours as needed for anxiety hydrOXYzine HCl - 25 MG Oral Tablet TAKE 1 TABLET BY MOUTH EVERY 4 TO 6 HOURS NEEDED FOR ANXIETY. Quantity: 60 Refills: 0 Ordered: 28-May-2020 Yamila Hayden MD Start : 28-Nov-2019 Active Start: 05-03-2018 End: 05-03-2018 hydrOXYzine HCl (ATARAX) tab let 25 mg Start: 05-03-2018 End: 03-04-2019 hydrOXYzine pamoate 25 MG Ca p capsule Take 25 mg by mouth. 0 05/03/2018 Active 3 ml insulin aspart, human 1 00 unt/ml pen injector (18 sources) Insulin Analog Start: 02-07-2022 End: 02-07-2022 Start: 02-07-2022 End: 02-07-2022 Start: 02-07-2022 End: 02-07-2022 Insulin Aspart U-100 (Novolo g Flexpen U-100 Insulin) 100 unit/mL (3 mL) insulin pen Discontinued 5 UNIT SC THREE TIMES A DAY 5 February 07, 2022 12:00am February 07, 2022 4:34pm 3 ml insulin glargine 100 unt/ml pen injector (20 sources) Insulin Analog Start: 02-09-2023 End: 08-17-2023 Insulin Glargine (Lantus Solostar U-100 Insulin) 100 unit/mL (3 mL) insulin pen Active 24 UNIT SC AT BEDTIME 7.2 August 17, 2023 4:36pm Start: 01-24-2023 End: 02-09-2023 Insulin Glargine (Lantus Patrizia ostar U-100 Insulin) 100 unit/mL (3 mL) insulin pen Discontinued 36 UNIT SC AT BEDTIME January 24, 2023 2:03pm February 09, 2023 1:47pm Start: 01-18-2023 End: 01-24-2023 Insulin Glargine (Lantus Patrizia ostar U-100 Insulin) 100 unit/mL (3 mL) insulin pen Discontinued 24 UNIT SC AT BEDTIME 21.6 January 18, 2023 10:43am January 24, 2023 2:04pm Start: 08-04-2022 End: 01-18-2023 Insulin Glargine (Lantus Patrizia ostar U-100 Insulin) 100 unit/mL (3 mL) insulin pen Discontinued 30 UNIT SC AT BEDTIME August 04, 2022 9:26pm January 18, 2023 10:44am Start: 02-09-2022 End: 05-27-2024 Start: 02-09-2022 End: 08-04-2022 Insulin Glargine (Lantus Patrizia ostar U-100 Insulin) 100 unit/mL (3 mL) insulin pen Discontinued 30 UNIT SC DAILY February 09, 2022 12:00am August 04, 2022 9:26pm Start: 01-07-2021 End: 11-10-2021 Insulin Glargine Discontinue d 30 UNIT SC AT BEDTIME August 02, 2021 9:32am November 10, 2021 9:23am Start: 08-20-2020 End: 01-07-2021 Insulin Glargine Discontinue d 40 UNIT SC AT BEDTIME August 20, 2020 2:31pm January 07, 2021 2:05pm Start: 03-04-2020 End: 08-20-2020 inject 40 [IU] by subcutaneous injection at bedtime Insulin Glargine Discontinued 40 UNITS SQ AT BEDTIME March 04, 2020 12:00am August 20, 2020 2:42pm Start: 10-21-2019 End: 11-10-2021 Lantus OptiClik Cartridge 100 units/mL subcutaneous solution ; 26 subcutaneous once a day (at bedtime) Quantity: 0 Refills: 0 Ordered: 14-Mar-2022 Safia Grimes Generic Substitution Allowed inject 40 [IU] by croft bcutaneous injection at bedtime Insulin Glargine (LANTUS SOLOSTAR SC) Inject 40 Units under the skin at bedtime. 0 Active Insulin Glargine (LANTUS SOLOSTAR SC) Inject 15 Units under the skin. 0 Active Insulin Glargine (LANTUS SOLOSTAR SC) Inject 15 Units under the skin. Active Insulin Glargine-Yfgn (20 sources) Start: 02-07-2022 End: 02-09-2022 Start: 02-07-2022 End: 02-09-2022 Insulin Glargine-Yfgn Discon tinued 30 UNIT SC AT BEDTIME February 07, 2022 12:40pm February 09, 2022 10:37am Start: 02-07-2022 End: 02-09-2022 Insulin Glargine-Yfgn Discon tinued 30 UNIT SC AT BEDTIME February 07, 2022 1:40pm February 09, 2022 11:37am Start: 12-20-2021 End: 02-07-2022 Start: 12-20-2021 End: 02-07-2022 Insulin Glargine-Yfgn Discon tinued 15 UNIT SC AT BEDTIME December 20, 2021 1:13pm February 07, 2022 12:41pm Start: 12-20-2021 End: 02-07-2022 Insulin Glargine-Yfgn Discon tinued 15 UNIT SC AT BEDTIME 15 December 20, 2021 2:13pm February 07, 2022 1:41pm Start: 12-20-2021 Insulin Glargi ne-Yfgn Active 15 UNIT SC AT BEDTIME 15 December 20, 2021 2:13pm Start: 11-10-2021 End: 12-20-2021 Start: 11-10-2021 End: 12-20-2021 Insulin Glargine-Yfgn Discon tinued 15 UNIT SC AT BEDTIME 0 November 09, 2021 11:00pm December 20, 2021 1:14pm Start: 11-10-2021 End: 12-20-2021 Insulin Glargine-Yfgn Discon tinued 15 UNIT SC AT BEDTIME 0 November 10, 2021 12:00am December 20, 2021 2:14pm Start: 11-10-2021 Insulin Glargi ne-Yfgn Active 15 UNIT SC AT BEDTIME 0 November 10, 2021 12:00am 3 ml insulin lispro 100 unt/ml pen injector (20 sources) Insulin Analog Start: 02-20-2023 End: 06-28-2023 Insulin Lispro (Humalog Kwikpen Insulin) 100 unit/mL insulin pen Discontinued 10 UNIT SC THREE TIMES A DAY June 26, 2023 11:00am June 28, 2023 5:01pm Start: 02-07-2022 End: 05-13-2024 Start: 02-07-2022 End: 06-28-2023 Start: 02-07-2022 End: 02-20-2023 Insulin Lispro (Humalog Kwik pen Insulin) 100 unit/mL insulin pen Discontinued 5 UNIT SC THREE TIMES A DAY February 21, 2022 8:18am August 04, 2022 9:26pm HumaLOG 100 unit s/mL subcutaneous solution Quantity: 0 Refills: 0 Ordered: 14-Mar-2022 Safia Grimes Generic Substitution Allowed insulin lispro (HumaLOG) injection (1 source) Start: 10-15-2019 End: 10-16-2019 insulin lispro (HumaLOG) injection 24 hr isosorbide mononitrate 30 mg extended release oral tablet (20 sources) Nitrate Vasodilator Start: 07-07-2023 End: 07-24-2024 Start: 11-12-2021 End: 12-08-2021 10 ml lidocaine hydrochloride 10 mg/ml injection (7 sources) Antiarrhythmic, Amide Local Anesthetic Start: 01-30-2020 End: 01-30-2020 lidocaine (XYLOCAINE) 10 mg/mL injection Start: 12-24-2019 End: 12-24-2019 lidocaine (XYLOCAINE) 10 mg/ mL injection 3 mL Start: 04-15-2019 End: 04-15-2019 lidocaine (XYLOCAINE) 10 mg/ mL injection 3 mL Start: 04-15-2019 End: 04-15-2019 lidocaine (XYLOCAINE) 10 mg/ mL injection 3 mL Start: 03-15-2019 End: 03-15-2019 lidocaine (XYLOCAINE) 10 mg/ mL injection 3 mL Start: 03-15-2019 End: 03-15-2019 lidocaine (XYLOCAINE) 10 mg/ mL injection 3 mL losartan potassium 50 mg ora l tablet (20 sources) Angiotensin 2 Receptor Scot Start: 05-25-2020 End: 07-14-2024 Start: 05-13-2020 End: 05-25-2020 Start: 05-13-2020 End: 05-13-2020 take 100 mg by mouth once daily Losartan Discontinued 100 MG PO DAILY May 13, 2020 3:05pm May 13, 2020 3:24pm Start: 04-15-2020 End: 05-13-2020 Start: 11-27-2019 take 1 tablet by dale th once daily losartan 100 MG tablet Indications: Hypertensive heart disease without congestive heart failure Take 1 tablet by mouth daily. 90 tablet 2 11/27/2019 Active Start: 10-02-2019 End: 10-16-2019 take 50 mg by mouth once daily 50 mg, Oral, DAILY, Fir st dose on Mon10/16/19 at 0900, Until Discontinued take 1 tablet by dale th once daily losartan 25 MG Tab tablet Take 25 mg by mouth daily. 0 Active Lutein (2 sources) Lutein CAPS Heladio tity: 0 Refills: 0 Ordered: 07-Apr-2020 DO Active Lutein CAPS Refi lls: 0 DO Active magnesium oxide 400 mg oral tablet (20 sources) Start: 10-16-2019 End: 10-16-2019 magnesium oxide (MAX-OX) tab let 800 mg Start: 02-26-2018 End: 03-04-2019 take 1 tablet by mouth once daily Magnesium Oxide -Mg Supplement 250 MG Tab 1 po q day 0 02/26/2018 Active Magnesium Oxide 250 MG Oral Tablet Quantity: 0 Refills: 0 Ordered: 23-Apr-2019 DO Active 50 ml magnesium sulfate 40 m g/ml injection (1 source) Start: 10-17-2019 End: 10-16-2019 magnesium sulfate 2 g/50 mL in sterile water premix IVPB 2 g 50 mL (total volume) Start: 10-17-2019 End: 10-16-2019 magnesium sulfate 2 g/50 mL in sterile water premix IVPB 2 g 50 mL (total volume) meclizine hydrochloride 12.5 mg oral tablet (20 sources) Antiemetic Start: 09-14-2023 End: 06-21-2024 Start: 09-14-2023 metFORMIN hydrochloride 500 mg oral tablet (20 sources) Biguanide Start: 09-30-2020 End: 01-07-2021 Start: 08-31-2020 End: 09-07-2020 Start: 05-13-2020 End: 07-31-2020 Start: 05-13-2020 End: 07-31-2020 take 1000 mg by mouth twice daily Metformin Discontinued 1000 MG PO TWICE A DAY May 13, 2020 1:00am July 31, 2020 1:09pm Start: 10-21-2019 take 2 tablets by mo uth twice daily metFORMIN HCl ER 500 MG Oral Tablet Extended Release 24 Hour TAKE 2 TABLET Twice daily Quantity: 360 Refills: 0 Ordered: 28-May-2020 Yamila Hayden MD Start : 21-Oct-2019 Active Start: 10-21-2019 take 4 tablets by mo [facility] once daily metFORMIN HCl ER 500 MG Oral Tablet Extended Release 24 Hour TAKE 4 TABLET Daily Quantity: 360 Refills: 0 Yamila Hayden MD Start : 21-Oct-2019 Active Start: 10-16-2019 End: 10-16-2019 1,000 mg, Oral, 2 TIMES LA Y, First dose on Mon10/16/19 at 0900, Until Discontinued Do not use in patients with eGFR < 30 ml/min; if eGFR falls below 45 ml/min: assess benefits and risks of continuing treatment. Discontinue with IV Dye administration. take 1 tablet by dale th twice daily metformin 1000 MG Tab tablet Take 1,000 mg by mouth 2 times daily. 0 Active metoprolol tartrate 50 mg or al tablet (20 sources) beta-Adrenergic Scot Start: 03-04-2020 End: 03-11-2020 Start: 11-27-2019 take 1 tablet by dale th twice daily metoprolol 50 MG tab regular release Indications: Hypertensive heart disease without congestive heart failure Take 1 tablet by mouth 2 times daily. 180 tablet 1 11/27/2019 Active Start: 10-15-2019 End: 10-16-2019 take 25 mg by mouth twice daily 25 mg, Oral, 2 TIMES D AILY, First dose on Mon10/15/19 at 2315, Until Discontinued Start: 08-07-2019 take 0.5 tablet by [facility] twice daily metoprolol 50 MG tab regular release Indications: Hypertensive heart disease without congestive heart failure , Atrial premature contractions , PAT (paroxysmal atrial tachycardia) , Ventricular premature contractions Take 0.5 tablets by mouth 2 times daily. 60 tablet 4 08/07/2019 Active take 1 tablet by dale th twice daily metoprolol 25 MG tab regular release Take 25 mg by mouth 2 times daily. 0 Active metroNIDAZOLE 250 mg oral tablet (3 sources) Nitroimidazole Antimicrobial Start: 01-01-2020 take 1 tablet by mouth three times daily metroNIDAZOLE 250 MG Oral Tablet TAKE 1 TABLET 3 times daily Quantity: 42 Refills: 0 Servando Clay DO Start : 01-Jan-2020 Active montelukast 10 mg oral tablet (9 sources) Leukotriene Receptor Antagonist Start: 01-24-2023 End: 08-17-2023 Start: 01-24-2023 End: 08-17-2023 Start: 01-24-2023 End: 08-17-2023 take 1 tablet by mouth at bedtime Montelukast (Singulair) 10 mg tablet Discontinued 10 MG PO AT BEDTIME January 24, 2023 12:00am August 17, 2023 1:47pm 24 hr nicotine 0.875 mg/hr transdermal system (20 sources) Cholinergic Nicotinic Agonist Start: 03-26-2020 End: 05-13-2020 Start: 03-26-2020 End: 05-13-2020 Nicotine Discontinued 21 MG TRANSDERM. DAILY March 26, 2020 1:00am May 13, 2020 3:08pm Start: 10-16-2019 End: 10-16-2019 apply 1 dose transdermal route every twenty-four hours 1 patch, Transdermal, EVERY 24 HOURS, First dose on Mon10/16/19 at 0115, Until Discontinued Please remove old patch when applying new patch nitroglycerin 0.4 mg subling ual tablet (20 sources) Nitrate Vasodilator Start: 01-11-2021 End: 10-04-2023 Start: 01-11-2021 End: 06-26-2023 Start: 01-11-2021 End: 06-26-2023 Nitroglycerin (Nitrostat) 0. 4 mg tablet, sublingual Discontinued 0.4 MG SL every 5 to 15 minutes March 21, 2023 3:00pm June 26, 2023 9:32am do not exceed 3 doses per episode nystatin 100 unt/mg topical powder (20 sources) Polyene Antifungal Start: 10-27-2021 End: 03-19-2024 Start: 10-27-2021 End: 08-14-2023 Start: 10-27-2021 End: 08-14-2023 Nystatin (Nyamyc) 100,000 un it/gram powder Active 1 APPLIC TOPICAL TWICE A DAY August 14, 2023 3:52pm Start: 11-10-2020 End: 02-08-2021 Start: 11-10-2020 End: 02-08-2021 Start: 11-10-2020 End: 02-08-2021 Nystatin Discontinued 1 APPL IC TOPICAL TWICE A DAY 60 November 10, 2020 5:24pm February 08, 2021 11:26am apply to skin under breasts as needed Start: 08-31-2020 End: 11-10-2020 Start: 08-31-2020 End: 11-10-2020 Start: 08-31-2020 End: 11-10-2020 Nystatin Discontinued 1 APPL IC TOPICAL DAILY August 31, 2020 12:00am November 10, 2020 2:58pm Nystatin [id number] UNIT/GM External Powder APPLY 2-3 TIMES DAILY TO AFFECTED AREAS Quantity: 1 Refills: 1 Ordered: 07-Apr-2020 Yamila Hayden MD Active Nystatin [id number] UNIT/GM External Powder APPLY 2-3 TIMES DAILY TO AFFECTED AREAS Quantity: 1 Refills: 1 Yamila Hayden MD Active 15 GM Bottle Nystatin [id number] UNIT/GM External Cream APPLY 2-3 TIMES DAILY TO AFFECTED AREA(S). Quantity: 1 Refills: 0 Yamila Hayden MD Active 15 GM Tube pantoprazole 40 mg delayed r elease oral tablet (20 sources) Proton Pump Inhibitor Start: 03-04-2020 End: 07-24-2024 Start: 10-16-2019 End: 11-15-2019 take 1 dose by mouth once daily before breakfast pantoprazole Sodium 40 MG Pack Take 1 packet by mouth every morning before breakfast. 30 packet 0 10/16/2019 Active End: 03-15-2019 take 40 mg by mouth once daily before breakfast pantoprazole Sodium 40 MG Pack Take 40 mg by mouth every morning before breakfast. 0 Active PERFLUTREN LIPID MICROSPHERE 1.3 ML/8.7ML (1 source) Start: 06-13-2019 End: 06-13-2019 PERFLUTREN LIPID MICROSPHERE 1.3 ML/8.7ML Potassium (10 sources) Potassium TABS Q uantity: 0 Refills: 0 Ordered: 07-Apr-2020 DO Active POTASSIUM PO Vahe e by mouth daily. OTC 0 Active Potassium Chloride (1 source) Start: 10-17-2019 End: 10-16-2019 potassium chloride (K-DUR) t ablet ER 40 mEq Potassium TABS (1 source) Potassium TABS R efills: 0 DO Active predniSONE 20 mg oral tablet (20 sources) Start: 11-17-2022 End: 01-24-2023 Start: 09-15-2022 End: 09-27-2022 0.25 mg, 0.5 mg dose 1.5 ml semaglutide 1.34 mg/ml pen injector (20 sources) Start: 11-07-2021 End: 02-07-2022 Start: 11-07-2021 End: 02-07-2022 Semaglutide (Ozempic) 0.25 m g or 0.5 mg(2 mg/1.5 mL) pen injector Discontinued 0.5 MG SC WE November 07, 2021 12:00am February 07, 2022 1:37pm Start: 02-15-2021 End: 09-27-2021 Start: 02-15-2021 End: 09-27-2021 Semaglutide (Ozempic) 0.25 m g or 0.5 mg(2 mg/1.5 mL) pen injector Discontinued 0.5 MG SC EVERY WEEK 4.5 June 21, 2021 8:52am September 27, 2021 10:43am Ozempic (0.25 or 0.5 MG/DOSE) 2 MG/1.5ML Subcutaneous Solution Pen-injector Quantity: 0 Refills: 0 Ordered: 06-Jan-2022 DO Active Semaglutide (20 sources) Start: 08-04-2022 End: 08-17-2022 Semaglutide (Ozempic) 1 mg/d ose (4 mg/3 mL) pen injector Discontinued 1 MG SC EVERY WEEK August 04, 2022 8:26pm August 17, 2022 7:56am q wed Start: 08-04-2022 End: 08-17-2022 Start: 08-04-2022 End: 08-17-2022 Semaglutide (Ozempic) 1 mg/d ose (4 mg/3 mL) pen injector Discontinued 1 MG SC EVERY WEEK August 04, 2022 9:26pm August 17, 2022 8:56am q wed Start: 08-04-2022 Semaglutide (O zempic) 1 mg/dose (4 mg/3 mL) pen injector Active 1 MG SC EVERY WEEK August 04, 2022 9:26pm q wed Start: 05-18-2022 End: 08-04-2022 Semaglutide (Ozempic) 1 mg/d ose (4 mg/3 mL) pen injector Discontinued 1 MG SC EVERY WEEK 3 May 18, 2022 9:20am August 04, 2022 8:26pm Start: 05-18-2022 End: 08-04-2022 Start: 05-18-2022 End: 08-04-2022 Semaglutide (Ozempic) 1 mg/d ose (4 mg/3 mL) pen injector Discontinued 1 MG SC EVERY WEEK 3 May 18, 2022 10:20am August 04, 2022 9:26pm Start: 05-18-2022 Semaglutide (O zempic) 1 mg/dose (4 mg/3 mL) pen injector Active 1 MG SC EVERY WEEK 3 May 18, 2022 10:20am Start: 02-07-2022 End: 05-18-2022 Semaglutide (Ozempic) 1 mg/d ose (4 mg/3 mL) pen injector Discontinued 1 MG SC EVERY WEEK 3 February 06, 2022 11:00pm May 18, 2022 9:20am Start: 02-07-2022 End: 05-18-2022 Start: 02-07-2022 End: 05-18-2022 Semaglutide (Ozempic) 1 mg/d ose (4 mg/3 mL) pen injector Discontinued 1 MG SC EVERY WEEK 3 February 07, 2022 12:00am May 18, 2022 10:20am Start: 02-07-2022 Semaglutide (O zempic) 1 mg/dose (4 mg/3 mL) pen injector Active 1 MG SC EVERY WEEK 3 February 06, 2022 11:00pm Start: 02-07-2022 Semaglutide (O zempic) 1 mg/dose (4 mg/3 mL) pen injector Active 1 MG SC EVERY WEEK 3 February 07, 2022 12:00am Senior Multivitamin Plus TABS (1 source) Senior Multivita min Plus TABS Quantity: 0 Refills: 0 Ordered: 07-Apr-2020 DO Active SITagliptin 50 mg oral tablet (20 sources) Dipeptidyl Peptidase 4 Inhibitor Start: 01-07-2021 End: 02-15-2021 1000 ml sodium chloride 9 mg/ml injection (6 sources) Start: 01-30-2020 End: 01-30-2020 sodium chloride 0.9 % irrigation Start: 01-30-2020 End: 01-30-2020 sodium chloride 0.9% IV solu tion Start: 10-15-2019 End: 10-15-2019 sodium chloride 0.9% IV solu tion 1,000 mL Start: 10-15-2019 End: 10-16-2019 sodium chloride 0.9% IV solu tion Start: 05-03-2018 End: 05-03-2018 sodium chloride 0.9% IV solu tion 1,000 mL sucralfate 1000 mg oral tabl et (20 sources) Aluminum Complex Start: 11-16-2021 End: 08-17-2022 Start: 11-16-2021 End: 08-17-2022 take 1 tablet by mouth twice daily Sucralfate (Carafate) 1 gram tablet Discontinued 1 GM PO TWICE A DAY January 14, 2022 1:09pm August 17, 2022 8:01am Start: 11-16-2021 End: 01-14-2022 take 1 tablet by mouth every six hours Sucralfate (Carafate) 1 gram tablet Discontinued 1 GM PO EVERY 6 HOURS 56 November 16, 2021 12:00am January 14, 2022 1:10pm Start: 11-16-2021 End: 08-17-2022 take 1 tablet by dale th four times daily at bedtime sucralfate 1 g oral tablet ; 1 tab(s) orally 4 times a day (before meals and at bedtime) Quantity: 0 Refills: 0 Ordered: 14-Mar-2022 Safia Grimes Generic Substitution Allowed sulindac 200 mg oral tablet (13 sources) Nonsteroidal Anti-inflammatory Drug Start: 02-26-2018 End: 03-04-2019 take 1 puff(s) by mouth twice daily as needed sulindac 200 MG Tab Indications: Cervicalgia , Dorsalgia , Paresthesia of both hands , Bilateral carpal tunnel syndrome , Bilateral foot pain , Disorder of bone and cartilage , Chronic pain of both shoulders , Fibromyalgia , Bilateral biceps tendonitis , Tendonitis of both rotator cuffs , Bilateral elbow joint pain , Lateral epicondylitis of both elbows , Bilateral medial epicondylitis of elbow joint , Bilateral wrist pain , Bilateral hand pain , Osteoarthritis of both hands, unspecified osteoarthritis type , Weakness of both hands , Left hip pain , Greater trochanteric bursitis of left hip , Chronic pain of left knee , Osteoarthritis of both feet, unspecified osteoarthritis type , Fatigue, unspecified type , 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 , long-term current use of non-steroidal anti-inflammatories (NSAID) , Hypertension, unspecified type , Gastroesophageal reflux disease, esophagitis presence not specified , Hypothyroidism, unspecified type , Type II diabetes mellitus with neurological manifestations , Lower abdominal pain 1 po bid PRN 60 tablet 11 02/26/2018 03/04/2019 Discontinued tiZANidine 2 mg oral tablet (20 sources) Central alpha-2 Adrenergic Agonist Start: 10-16-2019 End: 10-16-2019 take 4 mg by mouth once daily at bedtime as needed for muscle spasms 4 mg, Oral, DAILY AT BEDTIME NEEDED, Starting Mon10/16/19 at 0101, Until Mon10/16/19 at 1403, Muscle spasms Max: 36 mg/day TiZANidine-Linim ent (TIZANIDINE COMFORT PAC) 4 MG Misc by Combination route. 0 Active traZODone hydrochloride 50 mg oral tablet (20 sources) Serotonin Reuptake Inhibitor Start: 04-04-2022 End: 05-18-2022 take 50 mg by mouth at bedtime Trazodone Discontinued 50 MG PO AT BEDTIME April 04, 2022 3:59pm May 18, 2022 11:18am Start: 11-16-2021 End: 04-04-2022 take 75 mg by mouth at bedtime Trazodone Discontinued 75 MG PO AT BEDTIME November 16, 2021 9:53am April 04, 2022 4:00pm Start: 11-07-2021 End: 11-16-2021 take 150 mg by mouth at bedtime Trazodone Discontinued 150 MG PO AT BEDTIME November 07, 2021 4:48pm November 16, 2021 9:53am Start: 10-12-2021 End: 05-18-2022 Start: 10-12-2021 End: 05-18-2022 Start: 10-12-2021 End: 11-07-2021 take 75 mg by mouth at bedtime Trazodone Discontinued 75 MG PO AT BEDTIME 135 October 27, 2021 12:31pm November 07, 2021 4:48pm Start: 10-16-2019 End: 10-16-2019 traZODone (DESYREL) tablet 1 50 mg Start: 02-28-2019 End: 07-26-2021 Comment on above: It is very important that you take or use this exactly as directed. Do not skip doses or discontinue unless directed by your doctor.May cause drowsiness or dizziness.Obtain medical advice before taking any non-prescription drugs as some may affect the action of this medication.Take with food or milk. 1 ml triamcinolone acetonide 40 mg/ml prefilled syringe (6 sources) Corticosteroid Start: 12-24-2019 End: 12-24-2019 triamcinolone (KENALOG-40) injection 1 mL Start: 04-15-2019 End: 04-15-2019 triamcinolone (KENALOG-40) i njection 1 mL Start: 04-15-2019 End: 04-15-2019 triamcinolone (KENALOG-40) i njection 1 mL Start: 03-15-2019 End: 03-15-2019 triamcinolone (KENALOG-40) i njection 1 mL Start: 03-15-2019 End: 03-15-2019 triamcinolone (KENALOG-40) i njection 1 mL divalproex sodium 125 mg delayed release oral capsule (20 sources) Mood Stabilizer, Anti-epileptic Agent Start: 11-07-2019 End: 2024 Start: 10-16-2019 End: 10-16-2019 take 125 mg by mouth twice daily 125 mg, Oral, 2 TIMES DAILY, First dose on Mon10/16/19 at 0045, Until Discontinued Patients med from home. Do not crush. take 1 tablet by three times daily divalproex sodium 125 mg oral delayed release tablet ; 1 tab(s) orally 3 times a day Quantity: 0 Refills: 0 Ordered: 14-Mar-2022 Safia Grimes Generic Substitution Allowed divalproex [address] tablet EC/DR Take 125 mg by mouth. 0 Active Varenicline (Chantix Starting Month Box) 0.5 mg (11)- 1 mg (42) tablets,dose pack (4 sources) Start: 01-24-2023 End: 04-02-2023 take 1 tablet by mouth once Varenicline (Chantix Starting Month Box) 0.5 mg (11)- 1 mg (42) tablets,dose pack Discontinued 0 PO per package directions January 24, 2023 12:00am April 02, 2023 7:21pm PO PER PKG DIR Start: 01-24-2023 End: 04-02-2023 take 1 tablet by mouth once Varenicline (Chantix Start ing Month Box) 0.5 mg (11)- 1 mg (42) tablets,dose pack Discontinued 0 PO per package directions January 23, 2023 11:00pm April 02, 2023 6:21pm PO PER PKG DIR Vitamin B12 TABS (1 source) Vitamin B12 Vitamin B12 TABS Refills: 0 DO Active Vitamin B12 TABS (1 source) Vitamin B12 TABS Quantity: 0 Refills: 0 Ordered: 07-Apr-2020 DO Active Vitamin D CAPS (1 source) Vitamin D CAPS Q uantity: 0 Refills: 0 Ordered: 23-Apr-2019 DO Active Problems Active Problems Problem Classification Problem Date Documented Da te Episodic/Chronic Abdominal hernia (9 sources) Unspecified abdominal hernia without obstruction or gangrene; 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: [Hernia] Episodic Acute and unspecified renal failure (6 sources) Acute injury of kidney; 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: [SALVATORE (acute kidney injury)] Onset: 0 10-16-2019 Acute bronchitis (20 sources) Acute bronchiolitis; 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: [Acute bronchiolitis, unspecified] 11-17-2022 Episodic Administrative/social admission (12 sources) Persons encountering health services in other specified circumstances; 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: [Other reasons for seeking consultation] 01-24-2023 Episodic Anxiety disorders (3 sources) Panic attack; 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: [Panic disorder without agoraphobia] Onset: 3 03-17-2021 Chronic Asthma (14 sources) Unspecified asthma, uncomplicated; 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: [Mild intermittent asthma] Onset: 7 Chronic Cardiac dysrhythmias (20 sources) Premature atrial contraction; 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: [Paroxysmal atrial fibrillation] Onset: 3 Chronic Cardiac dysrhythmias (20 sources) Palpitations; 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: [Bradycardia] Episodic Chronic kidney disease (20 sources) Chronic kidney disease; 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: [Chronic kidney disease, unspecified] Onset: 5 Chronic Chronic kidney disease (4 sources) Chronic kidney disease; 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: [Chronic kidney disease, stage 3b] Onset: 4 Chronic obstructive pulmonary disease and bronchiectasis (1 source) Chronic obstructive pulmonary disease with (acute) exacerbation; 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: [COPD WITH ACUTE EXACERBA] Onset: 7 Chronic Coronary atherosclerosis and other heart disease (20 sources) Coronary arteriosclerosis in [place] artery; 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: [Coronary arteriosclerosis] Onset: 1 Chronic Deficiency and other anemia (20 sources) Anemia; 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: [Anemia, unspecified] Onset: 9 03-04-2019 Episodic Deficiency and other anemia (6 sources) Chronic anemia; 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: [Anemia, unspecified] 06-26-2024 Episodic Deficiency and other anemia (1 source) Iron deficiency anemia, unspecified; 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: [Iron deficiency anemia, unspecified] Onset: 5 Episodic Diabetes mellitus with complications (20 sources) Type 2 diabetes mellitus with hypoglycemia without coma; 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: [Neurological disorder with diabetes type 2] Onset: 7 02-26-2018 Chronic Comment on above: Diabetic neuropathy; Diabetes mellitus with complications (1 source) Type 2 diabetes mellitus with diabetic neuropathy, unspecified; 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: [TYPE 2 DM W/DIABETIC FREDY] Onset: 7 Diabetes mellitus without complication (20 sources) Type 2 diabetes mellitus; 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: [Diabetes mellitus] Onset: 8 02-26-2018 Chronic Diabetes mellitus without complication (20 sources) Abnormal glucose level; 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: [Other abnormal glucose] 01-07-2021 Episodic Diseases of mouth; excluding dental (18 sources) Sialoadenitis of the submandibular gland; 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: [Sialoadenitis, unspecified] 08-06-2022 Episodic Diseases of white blood cells (20 sources) Elevated white blood cell count, unspecified; 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: [Leukocytosis] Onset: 7 Chronic Disorders of lipid metabolism (20 sources) Hyperlipidemia; 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: [Other and unspecified hyperlipidemia] Onset: 3 10-16-2019 Chronic Diverticulosis and diverticulitis (1 source) Diverticulosis of large intestine without perforation or abscess without bleeding; 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: [Dvrtclos of lg int w/o perforation or abscess w/o bleeding] Onset: 2 Chronic Esophageal disorders (20 sources) Eaton's esophagus without dysplasia; 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: [Gastroesophageal reflux disease] Onset: 7 02-26-2018 Chronic Essential hypertension (20 sources) Essential (primary) hypertension; 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: [Hypertensive disorder] Onset: 7 02-26-2018 Chronic Fracture of lower limb (8 sources) Displaced fracture of medial malleolus of left tibia, initial encounter for closed fracture; 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: [Avulsion fracture of medial malleolus of left tibia] 09-11-2023 Episodic Genitourinary symptoms and ill-defined conditions (3 sources) Dysuria; 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: [Dysuria] 08-17-2023 Episodic Gout and other crystal arthropathies (20 sources) Gouty arthropathy; 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: [Gout, unspecified] Onset: 9 03-04-2019 Chronic Headache; including migraine (15 sources) Migraine; 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: [Migraine, unspecified, not intractable, without status migrainosus] 07-28-2022 Chronic Heart valve disorders (20 sources) Nonrheumatic mitral (valve) prolapse; 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: [Mitral valve prolapse] Onset: 7 Chronic Influenza (2 sources) Influenza 08-15-2022 Comment on above: FLU SYM Intestinal obstruction without hernia (20 sources) Small bowel obstruction; 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: [Unspecified intestinal obstruction, unspecified as to partial versus complete obstruction] Onset: 5 Episodic Mood disorders (20 sources) Bipolar disorder, unspecified; 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: [Bipolar II disorder] Onset: 7 Chronic Comment on above: Bipolar 2 disorder; Mood disorders (1 source) Mood disorders; 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: [Depression, unspecified] Onset: 3 Mycoses (5 sources) Candidiasis, unspecified; 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: [Candidiasis of unspecified site] 07-11-2023 Episodic Neoplasms of unspecified nature or uncertain behavior (20 sources) Monoclonal gammopathy (clinical); 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: [Monoclonal paraproteinemia] Onset: 9 03-04-2019 Chronic Neoplasms of unspecified nature or uncertain behavior (7 sources) Essential (hemorrhagic) thrombocythemia; 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: [Thrombocytosis] Onset: 7 07-23-2024 Episodic Nonmalignant breast conditions (1 source) Unspecified lump in unspecified breast; 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: [Lump or mass in breast] 02-16-2023 Episodic Nutritional deficiencies (20 sources) Vitamin D deficiency; 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: [Vitamin D deficiency, unspecified] Onset: 9 03-04-2019 Chronic Osteoarthritis (20 sources) Degenerative joint disease of ankle AND/OR foot; 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: [Degenerative joint disease of hand] Onset: 8 02-26-2018 Chronic Osteoarthritis (20 sources) Osteoarthritis of bilateral acromioclavicular joints; 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: [Osteoarthritis of left knee joint] Onset: 9 03-04-2019 Other acquired deformities (19 sources) Scoliosis of thoracic spine; 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: [Scoliosis of thoracic spine] Onset: 9 03-04-2019 Chronic Other aftercare (15 sources) Drug therapy finding; 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: [long-term (current) use of anticoagulants] 07-28-2022 Episodic Other aftercare (15 sources) Long-term current use of anticoagulant; 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: [food storeroom clerk (current) use of anticoagulants] 08-04-2022 Episodic Other aftercare (6 sources) food storeroom clerk (current) use of anticoagulants; 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: [Long-term (current) use of anticoagulants] Onset: 3 08-04-2022 Episodic Other aftercare (1 source) food storeroom clerk (current) use of antithrombotics/antipl atelets; 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: [long-term (current) use of antithrombotics/antipl atelets] Onset: 3 Episodic Other aftercare (1 source) Other irrigator sprinkling system (current) drug therapy; 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: [Other fci (current) drug therapy] Onset: 3 Episodic Other aftercare (3 sources) Post-discharge follow-up; 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: [Encounter for follow-up examination after completed treatment for conditions other than malignant neoplasm] 07-24-2024 Episodic Other bone disease and musculoskeletal deformities (13 sources) Osteochondropathy; 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: [Disorder of bone and cartilage] Onset: 8 02-26-2018 Chronic Other bone disease and musculoskeletal deformities (18 sources) Disorder of skeletal system; 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: [Disorder of bone and cartilage] Onset: 8 02-26-2018 Chronic Other circulatory disease (20 sources) Low blood pressure; 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: [Hypotension, unspecified] 01-11-2022 Episodic Other circulatory disease (20 sources) Pulmonary congestion ; 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: [Other specified symptoms and signs involving the circulatory and respiratory systems] 12-10-2021 Episodic Other circulatory disease (1 source) Other specified symptoms and signs involving the circulatory and respiratory systems; 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: [Other symptoms involving respiratory system and chest] Episodic Other circulatory disease (6 sources) H/O: atrial fibrillation; 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: [Personal history of other diseases of the circulatory system] 08-04-2022 Episodic Other circulatory disease (5 sources) Personal history of other diseases of the circulatory system; 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: [Personal history of other diseases of circulatory system] 08-04-2022 Episodic Other connective tissue disease (13 sources) Fibromyalgia; 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: [Myalgia and myositis, unspecified] Onset: 7 02-26-2018 Episodic Other connective tissue disease (6 sources) Medial epicondylitis, right elbow; 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: [Bilateral medial epicondylitis of elbow joint] Onset: 8 02-26-2018 Episodic Other connective tissue disease (6 sources) Pain in right hand; 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: [Bilateral hand pain] Onset: 8 02-26-2018 Episodic Other connective tissue disease (6 sources) Other symptoms and signs involving the musculoskeletal system; 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: [Weakness of both hands] Onset: 8 02-26-2018 Episodic Other connective tissue disease (6 sources) Other shoulder lesions, right shoulder; 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: [Tendonitis of both rotator cuffs] Onset: 8 02-26-2018 Episodic Other connective tissue disease (6 sources) Pain in right foot; 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: [Bilateral foot pain] Onset: 8 02-26-2018 Episodic Other connective tissue disease (6 sources) Lateral epicondylitis, right elbow; 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: [Lateral epicondylitis of both elbows] Onset: 8 02-26-2018 Episodic Other connective tissue disease (20 sources) Primary fibromyalgia syndrome; 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: [Fibromyalgia] Onset: 8 02-26-2018 Episodic Other connective tissue disease (11 sources) Mass of thoracic structure; 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: [Other specified soft tissue disorders] 11-17-2022 Episodic Other connective tissue disease (2 sources) Other specified soft tissue disorders; 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: [Other disorders of soft tissue] 11-17-2022 Episodic Other connective tissue disease (3 sources) Swelling of lower limb; 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: [Other specified soft tissue disorders] 12-06-2023 Episodic Other connective tissue disease (6 sources) Recurrent falls ; 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: [Repeated falls] 06-26-2024 Episodic Other connective tissue disease (19 sources) Bilateral bone spur of calcaneum; 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: [Bilateral calcaneal spurs] Onset: 9 03-04-2019 Other connective tissue disease (19 sources) Bilateral impingement syndrome of shoulders; 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: [Impingement syndrome of both shoulders] Onset: 9 03-04-2019 Other connective tissue disease (19 sources) Calcific tendinitis of right shoulder; 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: [Calcific tendonitis of right shoulder] Onset: 9 03-04-2019 Other ear and sense organ disorders (16 sources) Hearing loss; 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: [Unspecified hearing loss, bilateral] 04-11-2022 Chronic Other ear and sense organ disorders (3 sources) Unspecified hearing loss, bilateral; 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: [Other specified forms of hearing loss] Chronic Other ear and sense organ disorders (20 sources) Impacted cerumen; 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: [Impacted cerumen] 04-11-2022 Episodic Other ear and sense organ disorders (16 sources) Bilateral tinnitus; 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: [Tinnitus, bilateral] 04-11-2022 Episodic Other ear and sense organ disorders (3 sources) Impacted cerumen, right ear; 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: [Impacted cerumen] Episodic Other ear and sense organ disorders (3 sources) Tinnitus, bilateral; 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: [Tinnitus, unspecified] Episodic Other eye disorders (7 sources) Subconjunctival hemorrhage; 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: [Conjunctival hemorrhage, left eye] 07-28-2022 Episodic Other eye disorders (8 sources) Subconjunctival hemorrhage of left eye; 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: [Conjunctival hemorrhage, left eye] 07-28-2022 Episodic Other female genital disorders (3 sources) Other specified noninflammatory disorders of vagina; 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: [Pruritus of genital organs] 08-17-2023 Episodic Other gastrointestinal disorders (1 source) Irritable bowel syndrome without diarrhea; 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: [IRRITABLE BOWEL SYND W/O] Onset: 7 Chronic Other gastrointestinal disorders (13 sources) Irritable bowel syndrome; 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: [Irritable bowel syndrome] Chronic Other gastrointestinal disorders (5 sources) Non-infective diarrhea; 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: [Other specified intestinal malabsorption] Chronic Other gastrointestinal disorders (5 sources) Fatty stool ; 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: [Other specified intestinal malabsorption] Chronic Other gastrointestinal disorders (4 sources) Non-infective diarrhea; 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: [Bile salt-induced diarrhea] Episodic Other gastrointestinal disorders (1 source) Fatty stool ; 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: [Steatorrhea] Episodic Other gastrointestinal disorders (20 sources) Diarrhea; 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: [Diarrhea, unspecified] 07-11-2021 Episodic Other gastrointestinal disorders (7 sources) Diarrhea, unspecified; 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: [Diarrhea] Onset: 3 08-08-2022 Episodic Other gastrointestinal disorders (1 source) Nausea, vomiting and diarrhea; 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: [Diarrhea] 08-15-2022 Episodic Other hereditary and degenerative nervous system conditions (1 source) Restless legs syndrome; 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: [RESTLESS LEGS SYNDROME] Onset: 7 Chronic Other hereditary and degenerative nervous system conditions (13 sources) Restless legs; 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: [Restless legs syndrome (RLS)] Chronic Other inflammatory condition of skin (1 source) Generalized pruritus Episodic Other inflammatory condition of skin (3 sources) Itching ; 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: [Itching] Episodic Other liver diseases (9 sources) Steatosis of liver; 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: [Other chronic nonalcoholic liver disease] Chronic Other lower respiratory disease (20 sources) Dyspnea on exertion; 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: [Dyspnea, unspecified] 10-12-2021 Episodic Other lower respiratory disease (5 sources) Dyspnea, unspecified; 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: [Other respiratory abnormalities] Episodic Other lower respiratory disease (11 sources) Cough; 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: [Cough] 11-17-2022 Episodic Other lower respiratory disease (7 sources) Chronic cough; 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: [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] 01-24-2023 Episodic Other nervous system disorders (1 source) Other chronic pain; 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: [OTHER CHRONIC PAIN] Onset: 7 Chronic Other nervous system disorders (19 sources) Ulnar neuropathy; 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, left] Onset: 9 03-04-2019 Chronic Other nervous system disorders (1 source) Cubital tunnel syndrome; 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: [Cubital tunnel syndrome on left] Chronic Other nervous system disorders (9 sources) Carpal tunnel syndrome; 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: [Carpal tunnel syndrome] Chronic Other nervous system disorders (1 source) Postoperative pain ; 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: [Post-op pain] Episodic Other non-traumatic joint disorders (6 sources) Pain in right elbow; 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: [Bilateral elbow joint pain] Onset: 8 02-26-2018 Episodic Other non-traumatic joint disorders (6 sources) Pain in right wrist; 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: [Bilateral wrist pain] Onset: 8 02-26-2018 Episodic Other non-traumatic joint disorders (20 sources) Hip pain; 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: [Pain in right hip] Onset: 8 02-26-2018 Episodic Other non-traumatic joint disorders (7 sources) Pain in left knee; 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: [Pain in joint, lower leg] Onset: 8 02-26-2018 Episodic Other non-traumatic joint disorders (20 sources) Shoulder pain; 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: [Pain in right shoulder] Onset: 8 02-26-2018 Episodic Other non-traumatic joint disorders (1 source) Knee pain Episodic Other non-traumatic joint disorders (1 source) Pain in left hip; 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: [Pain in joint, pelvic region and thigh] 02-16-2023 Episodic Other non-traumatic joint disorders (8 sources) Pain in right shoulder; 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: [Pain in joint, shoulder region] 07-11-2023 Episodic Other non-traumatic joint disorders (20 sources) Pain in left knee; 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: [Knee pain, left] Onset: 8 02-26-2018 Other nutritional; endocrine; and metabolic disorders (20 sources) Hypomagnesemia; 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: [Disorders of magnesium metabolism] Onset: 9 03-04-2019 Chronic Other nutritional; endocrine; and metabolic disorders (9 sources) Obesity; 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: [Obesity, unspecified] 03-25-2024 Chronic Other nutritional; endocrine; and metabolic disorders (14 sources) Hypocalcemia; 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: [Hypocalcemia] 08-07-2022 Chronic Other nutritional; endocrine; and metabolic disorders (4 sources) Hypocalcemia; 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: [Hypocalcemia] 08-08-2022 Chronic Other nutritional; endocrine; and metabolic disorders (4 sources) Hypomagnesemia; 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: [Disorders of magnesium metabolism] 08-08-2022 Chronic Other nutritional; endocrine; and metabolic disorders (6 sources) Personal history of other endocrine, nutritional and metabolic disease; 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: [Personal history of other endocrine, metabolic, and immunity disorders] Onset: 7 08-04-2022 Episodic Other nutritional; endocrine; and metabolic disorders (9 sources) Hyperuricemia; 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: [Other abnormal blood chemistry] Episodic Other nutritional; endocrine; and metabolic disorders (6 sources) H/O: diabetes mellitus; 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: [Personal history of other endocrine, nutritional and metabolic disease] 08-04-2022 Episodic Other nutritional; endocrine; and metabolic disorders (3 sources) Body mass index 25-29 - overweight 02-15-2021 Episodic Other screening for suspected conditions (not mental disorders or infectious disease) (6 sources) Disorder of cardiovascular system; 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: [CVD (cardiovascular disease)] Onset: 0 10-16-2019 Chronic Other upper respiratory disease (20 sources) Lesion of nose; 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: [Other specified disorders of nose and nasal sinuses] 01-07-2021 Episodic Other upper respiratory infections (5 sources) Acute upper respiratory infection, unspecified; 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: [Acute upper respiratory infections of unspecified site] Episodic Otitis media and related conditions (20 sources) Otitis media; 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: [Otitis media, unspecified, unspecified ear] Episodic Pancreatic disorders (not diabetes) (20 sources) Secondary pancreatic insufficiency; 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: [Other specified diseases of pancreas] 08-04-2022 Episodic Peripheral and visceral atherosclerosis (5 sources) Intermittent claudication; 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: [Peripheral vascular disease, unspecified] Onset: 4 02-19-2024 Chronic Residual codes; unclassified (1 source) Preoperative state; 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: [Pre-operative clearance] Episodic Residual codes; unclassified (1 source) History of decompression of median nerve; 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: [S/P carpal tunnel release] Episodic Residual codes; unclassified (3 sources) Transient alteration of awareness; 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: [Transient alteration of awareness] 02-06-2024 Episodic Screening and history of mental health and substance abuse codes (3 sources) Personal history of nicotine dependence; 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: [Personal history of tobacco use] 08-17-2023 Episodic Spondylosis; intervertebral disc disorders; other back problems (20 sources) Lumbar spondylosis; 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: [Degeneration of lumbar intervertebral disc] Onset: 9 03-04-2019 Chronic Spondylosis; intervertebral disc disorders; other back problems (20 sources) Neck pain; 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: [Thoracic back pain] Onset: 8 02-26-2018 Episodic Substance-related disorders (12 sources) Nicotine dependence, cigarettes, uncomplicated; 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: [Smoker] Onset: 7 01-24-2023 Chronic Superficial injury; contusion (5 sources) Contusion of left foot; 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: [Contusion of left foot, initial encounter] 09-11-2023 Episodic Thyroid disorders (20 sources) Hypothyroidism; 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: [Unspecified acquired hypothyroidism] Onset: 8 02-26-2018 Chronic Thyroid disorders (1 source) Disorder of thyroid, unspecified; 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: [Disorder of thyroid, unspecified] Onset: Episodic Unclassified (1 source) 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; 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: [USP USE ORAL HYPOG] Onset: 7 Unclassified (20 sources) Right carpal tunnel syndrome; 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: [Carpal tunnel syndrome of right wrist] Onset: 9 03-04-2019 Unclassified (20 sources) Bilateral foot pain; 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: [Bilateral foot pain] Onset: 8 02-26-2018 Unclassified (20 sources) Weakness of both hands; 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: [Weakness of both hands] Onset: 8 02-26-2018 Unclassified (20 sources) Bilateral hand pain; 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: [Bilateral hand pain] Onset: 8 02-26-2018 Unclassified (20 sources) Bilateral wrist pain; 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: [Bilateral wrist pain] Onset: 8 02-26-2018 Unclassified (20 sources) Tendonitis of both rotator cuffs; 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: [Tendonitis of both rotator cuffs] Onset: 8 02-26-2018 Unclassified (20 sources) Bilateral elbow joint pain; 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: [Bilateral elbow joint pain] Onset: 8 02-26-2018 Unclassified (20 sources) Lateral epicondylitis of both elbows; 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: [Lateral epicondylitis of both elbows] Onset: 8 02-26-2018 Unclassified (20 sources) Bilateral medial epicondylitis of elbow joint; 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: [Bilateral medial epicondylitis of elbow joint] Onset: 8 02-26-2018 Unclassified (19 sources) Patient noncompliance - general; 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: [Patient non adherence] Onset: 9 03-04-2019 Unclassified (2 sources) Chronic pain of right upper limb; 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: [Chronic right shoulder pain] Unclassified (2 sources) HEADACHE/CONFUSION 03-17-2021 Comment on above: HEADACHE/CONFUSION Unclassified (20 sources) Body mass index 25-29 - overweight; 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: [Body mass index (BMI) of 25.0 to 29.9] 02-15-2021 Unclassified (1 source) Contact with and (suspected) exposure to COVID-19; 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: [Contact with and (suspected) exposure to COVID-19] Onset: 3 Unclassified (1 source) Lng trm (crnt) use injectable non-insulin antidiabetic drugs; 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: [Lng trm (crnt) use injectable non-insulin antidiabetic drugs] Onset: 3 Unclassified (1 source) Acidosis, unspecified; 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: [Acidosis, unspecified] Onset: 5 Unclassified (1 source) Thrombocytosis, unspecified; 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: [Thrombocytosis, unspecified] Onset: 5 Unclassified (1 source) Foreign body sensation, throat; 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: [Foreign body sensation, throat] Onset: 4 Unclassified (2 sources) Low back pain, unspecified; 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: [Low back pain, unspecified] Onset: 4 Past or Other Problems Problem Classification Problem Date Documented Date Episodic/Chronic Abdominal pain (20 sources) Lower abdominal pain; 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: [Abdominal pain] Onset: 8 02-26-2018 Episodic Acute and unspecified renal failure (20 sources) Acute renal failure syndrome; 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: [Acute kidney failure, unspecified] Onset: 5 Episodic Calculus of urinary tract (19 sources) History of calculus of kidney; 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: [Personal history of kidney stones] Onset: 9 03-04-2019 Episodic Conditions associated with dizziness or vertigo (20 sources) Dizziness and giddiness; 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: [Vertigo] Onset: 7 Episodic Coronary atherosclerosis and other heart disease (20 sources) Stented coronary artery; 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: [Presence of coronary angioplasty implant and graft] Onset: 2 Episodic Deficiency and other anemia (11 sources) Anemia, unspecified; 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: [Anemia, unspecified] Onset: 7 08-08-2022 Episodic E Codes: Adverse effects of medical drugs (7 sources) Adverse reaction to drug; 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: [Adverse effect of unspecified drugs, medicaments and biological substances, initial encounter] Onset: 5 07-23-2024 Episodic Fluid and electrolyte disorders (20 sources) Dehydration; 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: [Acidosis] Onset: 7 10-16-2019 Episodic Immunizations and screening for infectious disease (10 sources) Patient encounter status; 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: [Other specified vaccination] Onset: 4 01-24-2023 Episodic Malaise and fatigue (20 sources) Fatigue; 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: [Other fatigue] Onset: 8 02-26-2018 Episodic Nausea and vomiting (20 sources) Nausea and vomiting; 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: [Nausea, vomiting and diarrhea] Onset: 3 08-04-2022 Episodic Noninfectious gastroenteritis (20 sources) Chronic diarrhea of unknown origin ; 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: [Diarrhea] Onset: 5 Episodic Nonspecific chest pain (20 sources) Chest pain; 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: [Chest pain, unspecified] Onset: 4 01-14-2021 Episodic Other aftercare (4 sources) long-term (current) use of insulin; 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: [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] Onset: 7 Episodic Other aftercare (1 source) Encounter for follow-up examination after completed treatment for conditions other than malignant neoplasm; 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: [Encounter for follow-up examination after completed treatment for conditions other than malignant neoplasm] Onset: 5 Episodic Other bone disease and musculoskeletal deformities (1 source) Other specified disorders of bone density and structure, unspecified site; 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: [Other specified disorders of bone density and structure, unspecified site] Onset: 4 Episodic Other connective tissue disease (20 sources) H/O: musculoskeletal disease; 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: [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] Onset: 8 02-26-2018 Episodic Other connective tissue disease (20 sources) Biceps tendinitis; 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: [Bilateral biceps tendonitis] Onset: 8 02-26-2018 Episodic Other connective tissue disease (20 sources) Trochanteric bursitis; 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: [Greater trochanteric bursitis of left hip] Onset: 8 02-26-2018 Episodic Other connective tissue disease (2 sources) Repeated falls; 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: [History of fall] Onset: 5 09-14-2023 Episodic Other lower respiratory disease (5 sources) Other forms of dyspnea; 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: [Other respiratory abnormalities] Onset: 4 Episodic Other nervous system disorders (20 sources) Paresthesia of hand ; 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: [Paresthesia of both hands] Onset: 8 02-26-2018 Episodic Other nervous system disorders (20 sources) Carpal tunnel syndrome, bilateral upper limbs; 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: [Bilateral carpal tunnel syndrome] Onset: 8 Resolved: 9 02-26-2018 Other screening for suspected conditions (not mental disorders or infectious disease) (20 sources) Electrocardiogram abnormal; 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: [Raised TSH level] Onset: 0 10-16-2019 Episodic Pancreatic disorders (not diabetes) (1 source) Secondary pancreatic insufficiency; 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: [Secondary pancreatic insufficiency] Residual codes; unclassified (19 sources) Noncompliance with treatment; 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: [Noncompliance] Onset: 9 03-04-2019 Episodic Residual codes; unclassified (2 sources) Asymptomatic menopausal state; 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: [Asymptomatic menopausal state] Onset: 4 Episodic Respiratory failure; insufficiency; arrest (adult) (19 sources) Respiratory failure; insufficiency; arrest (adult) 01-11-2022 Syncope (20 sources) Syncope and collapse; 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: [Near syncope] Onset: 7 01-11-2022 Episodic Unclassified (1 source) Localized edema; 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: [LOCALIZED EDEMA] Onset: 7 Episodic Unclassified (20 sources) Patient encounter status; 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: [long-term current use of non-steroidal anti-inflammatories (NSAID)] Onset: 8 Resolved: 9 02-26-2018 Unclassified (1 source) Bilateral carpal tunnel syndrome Unclassified (19 sources) Tachybradycardia syndrome 01-11-2022 NEGATED: Highlighted row has not occurred!Residual codes; unclassified (20 sources) Disease Episodic Results Test Name Value Interpretation Reference Range Facility CBC W/Diff, Automatedon 05-0 Absolute Neut Normal 2.0-7.7 [facility] Comment on above: Result Comment: Canc elled via OM: Order cancelled - Patient discharged Performed By: #### L 500.4050, L100.0100 ####[facility] [address] [facility] [address] HCT Normal 37-47 [facility] Comment on above: Result Comment: Canc elled via OM: Order cancelled - Patient discharged Performed By: #### L 500.4050, L100.0100 ####[facility] [address] [place], [address] HGB Normal 12.0-15.0 [facility] Comment on above: Result Comment: Canc elled via OM: Order cancelled - Patient discharged Performed By: #### L 500.4050, L100.0100 ####[facility] [address] [place], [address] MCH Normal 27.0-32.0 [facility] Comment on above: Result Comment: Canc elled via OM: Order cancelled - Patient discharged Performed By: #### L 500.4050, L100.0100 ####[facility] [address] [place], [address] MCHC Normal 32-36 [facility] Comment on above: Result Comment: Canc elled via OM: Order cancelled - Patient discharged Performed By: #### L 500.4050, L100.0100 ####[facility] [address] [place], [address] MCV Normal 81-99 [facility] Comment on above: Result Comment: Canc elled via OM: Order cancelled - Patient discharged Performed By: #### L 500.4050, L100.0100 ####[facility] [address] [place], [address] NEUT% Normal 47-70 [facility] Comment on above: Result Comment: Canc elled via OM: Order cancelled - Patient discharged Performed By: #### L 500.4050, L100.0100 ####[facility] [address] [place], [address] PLT Normal 150-450 [facility] Comment on above: Result Comment: Canc elled via OM: Order cancelled - Patient discharged Performed By: #### L 500.4050, L100.0100 ####[facility] [address] [place], [address] RBC Normal 4.2-5.4 [facility] Comment on above: Result Comment: Canc elled via OM: Order cancelled - Patient discharged Performed By: #### L 500.4050, L100.0100 ####[facility] [address] [place], [address] RDW CV Normal 11.6-14.6 [facility] Comment on above: Result Comment: Canc elled via OM: Order cancelled - Patient discharged Performed By: #### L 500.4050, L100.0100 ####[facility] [address] [place], [address] RDW SD Normal 35.1-43.9 [facility] Comment on above: Result Comment: Canc elled via OM: Order cancelled - Patient discharged Performed By: #### L 500.4050, L100.0100 ####[facility] [address] [place], [address] WBC Normal 4.4-11.0 [facility] Comment on above: Result Comment: Canc elled via OM: Order cancelled - Patient discharged Performed By: #### L 500.4050, L100.0100 ####[facility] [address] [place], [address] Comprehensive Metabolic Prof ilon 09-21-2024 ALB Normal 3.4-4.8 [facility] Comment on above: Result Comment: Canc elled via OM: Order cancelled - Patient discharged Performed By: #### L 500.4050, L100.0100 ####[facility] [address] [place], [address] ALK PHOS Normal 35-104 [facility] Comment on above: Result Comment: Canc elled via OM: Order cancelled - Patient discharged Performed By: #### L 500.4050, L100.0100 ####[facility] [address] [place], [address] ALT Normal <=34 [facility] Comment on above: Result Comment: Canc elled via OM: Order cancelled - Patient discharged Performed By: #### L 500.4050, L100.0100 ####[facility] [address] [place], [address] AST Normal <=31 [facility] Comment on above: Result Comment: Canc elled via OM: Order cancelled - Patient discharged Performed By: #### L 500.4050, L100.0100 ####[facility] [address] [place], [address] BUN Normal 4-19 [facility] Comment on above: Result Comment: Canc elled via OM: Order cancelled - Patient discharged Performed By: #### L 500.4050, L100.0100 ####[facility] [address] [place], [address] BUN/CRE Normal 10-20 [facility] Comment on above: Result Comment: Canc elled via OM: Order cancelled - Patient discharged Performed By: #### L 500.4050, L100.0100 ####[facility] [address] [place], [address] Calcium Normal 7.6-11.0 [facility] Comment on above: Result Comment: Canc elled via OM: Order cancelled - Patient discharged Performed By: #### L 500.4050, L100.0100 ####[facility] [address] [place], [address] CL Normal 98-108 [facility] Comment on above: Result Comment: Canc elled via OM: Order cancelled - Patient discharged Performed By: #### L 500.4050, L100.0100 ####[facility] [address] [place], [address] CO2 Normal 21.0-32.0 [facility] Comment on above: Result Comment: Canc elled via OM: Order cancelled - Patient discharged Performed By: #### L 500.4050, L100.0100 ####[facility] [address] [place], [address] CREAT,SERUM Normal 0.70-1.20 [facility] Comment on above: Result Comment: Canc elled via OM: Order cancelled - Patient discharged Performed By: #### L 500.4050, L100.0100 ####[facility] [address] [place], [address] eGFR Normal >60 [facility] Comment on above: Result Comment: Canc elled via OM: Order cancelled - Patient discharged Performed By: #### L 500.4050, L100.0100 ####[facility] [address] [place], [address] GAP Normal 5-15 [facility] Comment on above: Result Comment: Canc elled via OM: Order cancelled - Patient discharged Performed By: #### L 500.4050, L100.0100 ####[facility] [address] [place], [address] GLU Normal 70-99 [facility] Comment on above: Result Comment: Canc elled via OM: Order cancelled - Patient discharged Performed By: #### L 500.4050, L100.0100 ####[facility] [address] [place], [address] Potassium Normal 3.3-5.1 [facility] Comment on above: Result Comment: Canc elled via OM: Order cancelled - Patient discharged Performed By: #### L 500.4050, L100.0100 ####[facility] [address] [place], [address] T BILI Normal 0.00-1.30 [facility] Comment on above: Result Comment: Canc elled via OM: Order cancelled - Patient discharged Performed By: #### L 500.4050, L100.0100 ####[facility] [address] [place], [address] T PROT Normal 5.9-8.4 [facility] Comment on above: Result Comment: Canc elled via OM: Order cancelled - Patient discharged Performed By: #### L 500.4050, L100.0100 ####[facility] [address] [place], [address] Comprehensive Metabolic Profil Normal 133-145 [facility] Comment on above: Result Comment: Canc elled via OM: Order cancelled - Patient discharged Performed By: #### L 500.4050, L100.0100 ####[facility] [address] [place], [address] CBC W/Diff, Automatedon 05-0 2-2024 Absolute Neut Normal 2.0-7.7 [facility] Comment on above: Result Comment: Canc elled via OM: Order cancelled - Patient discharged Performed By: #### L 500.4050, L100.0100 ####[facility] [address] [place], [address] HCT Normal 37-47 [facility] Comment on above: Result Comment: Canc elled via OM: Order cancelled - Patient discharged Performed By: #### L 500.4050, L100.0100 ####[facility] [address] [place], [address] HGB Normal 12.0-15.0 [facility] Comment on above: Result Comment: Canc elled via OM: Order cancelled - Patient discharged Performed By: #### L 500.4050, L100.0100 ####[facility] [address] [place], [address] MCH Normal 27.0-32.0 [facility] Comment on above: Result Comment: Canc elled via OM: Order cancelled - Patient discharged Performed By: #### L 500.4050, L100.0100 ####[facility] [address] [place], [address] MCHC Normal 32-36 [facility] Comment on above: Result Comment: Canc elled via OM: Order cancelled - Patient discharged Performed By: #### L 500.4050, L100.0100 ####[facility] [address] [place], [address] MCV Normal 81-99 [facility] Comment on above: Result Comment: Canc elled via OM: Order cancelled - Patient discharged Performed By: #### L 500.4050, L100.0100 ####[facility] [address] [place], [address] NEUT% Normal 47-70 [facility] Comment on above: Result Comment: Canc elled via OM: Order cancelled - Patient discharged Performed By: #### L 500.4050, L100.0100 ####[facility] [address] [place], [address] PLT Normal 150-450 [facility] Comment on above: Result Comment: Canc elled via OM: Order cancelled - Patient discharged Performed By: #### L 500.4050, L100.0100 ####[facility] [address] [place], [address] RBC Normal 4.2-5.4 [facility] Comment on above: Result Comment: Canc elled via OM: Order cancelled - Patient discharged Performed By: #### L 500.4050, L100.0100 ####[facility] [address] [place], [address] RDW CV Normal 11.6-14.6 [facility] Comment on above: Result Comment: Canc elled via OM: Order cancelled - Patient discharged Performed By: #### L 500.4050, L100.0100 ####[facility] [address] [place], [address] RDW SD Normal 35.1-43.9 [facility] Comment on above: Result Comment: Canc elled via OM: Order cancelled - Patient discharged Performed By: #### L 500.4050, L100.0100 ####[facility] [address] [place], [address] WBC Normal 4.4-11.0 [facility] Comment on above: Result Comment: Canc elled via OM: Order cancelled - Patient discharged Performed By: #### L 500.4050, L100.0100 ####[facility] [address] [place], [address] Comprehensive Metabolic Prof ilwen 09-20-2024 ALB Normal 3.4-4.8 [facility] Comment on above: Result Comment: Canc elled via OM: Order cancelled - Patient discharged Performed By: #### L 500.4050, L100.0100 ####[facility] [address] [place], [address] ALK PHOS Normal 35-104 [facility] Comment on above: Result Comment: Canc elled via OM: Order cancelled - Patient discharged Performed By: #### L 500.4050, L100.0100 ####[facility] [address] [place], [address] ALT Normal <=34 [facility] Comment on above: Result Comment: Canc elled via OM: Order cancelled - Patient discharged Performed By: #### L 500.4050, L100.0100 ####[facility] [address] [place], [address] AST Normal <=31 [facility] Comment on above: Result Comment: Canc elled via OM: Order cancelled - Patient discharged Performed By: #### L 500.4050, L100.0100 ####[facility] [address] [place], [address] BUN Normal 4-19 [facility] Comment on above: Result Comment: Canc elled via OM: Order cancelled - Patient discharged Performed By: #### L 500.4050, L100.0100 ####[facility] [address] [place], [address] BUN/CRE Normal 10-20 [facility] Comment on above: Result Comment: Canc elled via OM: Order cancelled - Patient discharged Performed By: #### L 500.4050, L100.0100 ####[facility] [address] [place], [address] Calcium Normal 7.6-11.0 [facility] Comment on above: Result Comment: Canc elled via OM: Order cancelled - Patient discharged Performed By: #### L 500.4050, L100.0100 ####[facility] [address] [place], [address] CL Normal 98-108 [facility] Comment on above: Result Comment: Canc elled via OM: Order cancelled - Patient discharged Performed By: #### L 500.4050, L100.0100 ####[facility] [address] [place], [address] CO2 Normal 21.0-32.0 [facility] Comment on above: Result Comment: Canc elled via OM: Order cancelled - Patient discharged Performed By: #### L 500.4050, L100.0100 ####[facility] [address] [place], [address] CREAT,SERUM Normal 0.70-1.20 [facility] Comment on above: Result Comment: Canc elled via OM: Order cancelled - Patient discharged Performed By: #### L 500.4050, L100.0100 ####[facility] [address] [place], [address] eGFR Normal >60 [facility] Comment on above: Result Comment: Canc elled via OM: Order cancelled - Patient discharged Performed By: #### L 500.4050, L100.0100 ####[facility] [address] [place], [address] GAP Normal 5-15 [facility] Comment on above: Result Comment: Canc elled via OM: Order cancelled - Patient discharged Performed By: #### L 500.4050, L100.0100 ####[facility] [address] [place], [address] GLU Normal 70-99 [facility] Comment on above: Result Comment: Canc elled via OM: Order cancelled - Patient discharged Performed By: #### L 500.4050, L100.0100 ####[facility] [address] [place], [address] Potassium Normal 3.3-5.1 [facility] Comment on above: Result Comment: Canc elled via OM: Order cancelled - Patient discharged Performed By: #### L 500.4050, L100.0100 ####[facility] [address] [place], [address] T BILI Normal 0.00-1.30 [facility] Comment on above: Result Comment: Canc elled via OM: Order cancelled - Patient discharged Performed By: #### L 500.4050, L100.0100 ####[facility] [address] [place], [address] T PROT Normal 5.9-8.4 [facility] Comment on above: Result Comment: Canc elled via OM: Order cancelled - Patient discharged Performed By: #### L 500.4050, L100.0100 ####[facility] [address] [place], [address] Comprehensive Metabolic Profil Normal 133-145 [facility] Comment on above: Result Comment: Canc elled via OM: Order cancelled - Patient discharged Performed By: #### L 500.4050, L100.0100 ####[facility] [address] [place], [address] Bedside Glucoseon 09-19-2024 FINGERSTICK GLU 237 mg/dL High 74-106 [facility] Comment on above: Result Comment: LOURDES GEMENT OF PATIENT CARE PER NURSING PROTOCOL Performed By: #### L 501.080 ####[facility] [address] [place], [address] FINGERSTICK GLU 117 mg/dL High 74-106 [facility] Comment on above: Result Comment: LOURDES GEMENT OF PATIENT CARE PER NURSING PROTOCOL Performed By: #### L 501.080 ####[facility] [address] [place], [address] FINGERSTICK GLU 101 mg/dL Normal 74-106 [facility] Comment on above: Result Comment: LOURDES GORMAN OF PATIENT CARE PER NURSING PROTOCOL Performed By: #### L 501.080 ####[facility] [address] [place], [address] CBC W/Diff, Automatedon 05-0 1-2024 Absolute Lymph 2.19 X10 3/uL Normal 0.83-4.51 [facility] Comment on above: Performed By: #### L 501.2300, L500.4050, L501.5200, L100.0100 ####[facility] [address] [place], [address] Absolute Neut 5.2 X10 3/uL Normal 2.0-7.7 [facility] Comment on above: Performed By: #### L 501.2300, L500.4050, L501.5200, L100.0100 ####[facility] [address] [place], [address] Basophils/100 WBC (Bld) 0.8 % Normal 0-1 [facility] Comment on above: Performed By: #### L 501.2300, L500.4050, L501.5200, L100.0100 ####[facility] [address] [place], [address] Eosinophils/100 WBC (Bld) 3.4 % Normal 0-5 [facility] Comment on above: Performed By: #### L 501.2300, L500.4050, L501.5200, L100.0100 ####[facility] [address] [place], [address] Erythrocyte distribution width (RBC) [Ratio] 18.7 % High 11.6-14.6 [facility] Comment on above: Performed By: #### L 501.2300, L500.4050, L501.5200, L100.0100 ####[facility] [address] [place], [address] Hematocrit (Bld) [Volume fraction] 28.3 % Low 37-47 [facility] Comment on above: Performed By: #### L 501.2300, L500.4050, L501.5200, L100.0100 ####[facility] [address] [place], [address] Hemoglobin (Bld) [Mass/Vol] 8.9 g/dL Low 12.0-15.0 [facility] Comment on above: Performed By: #### L 501.2300, L500.4050, L501.5200, L100.0100 ####[facility] [address] [place], [address] IG% 0.600 Normal 0.0-0.9 [facility] Comment on above: Result Comment: IG% - Immature Granulocytes (promyelocytes, myelocytes andmetamyelocytes) > 1% indicates that a LEFT SHIFT is Present. Performed By: #### L 501.2300, L500.4050, L501.5200, L100.0100 ####[facility] [address] [place], [address] Lymphocytes/100 WBC (Bld) 25.9 % Normal 19-41 [facility] Comment on above: Performed By: #### L 501.2300, L500.4050, L501.5200, L100.0100 ####[facility] [address] [place], [address] MCH (RBC) [Entitic mass] 27.1 pg Normal 27.0-32.0 [facility] Comment on above: Performed By: #### L 501.2300, L500.4050, L501.5200, L100.0100 ####[facility] [address] [place], [address] MCHC (RBC) [Mass/Vol] 31.4 g/dL Low 32-36 [facility] Comment on above: Performed By: #### L 501.2300, L500.4050, L501.5200, L100.0100 ####[facility] [address] [place], [address] MCV (RBC) [Entitic vol] 86.0 fL Normal 81-99 [facility] Comment on above: Performed By: #### L 501.2300, L500.4050, L501.5200, L100.0100 ####[facility] [address] [place], [address] Monocytes/100 WBC (Bld) 7.5 % Normal 0-10 [facility] Comment on above: Performed By: #### L 501.2300, L500.4050, L501.5200, L100.0100 ####[facility] [address] [place], [address] Neutrophils/100 WBC (Bld) 61.8 % Normal 47-70 [facility] Comment on above: Performed By: #### L 501.2300, L500.4050, L501.5200, L100.0100 ####[facility] [address] [place], [address] Nucleated RBC (Bld) [#/Vol] 0 10*3/uL Normal 0-5 [facility] Comment on above: Performed By: #### L 501.2300, L500.4050, L501.5200, L100.0100 ####[facility] [address] [place], [address] Platelet mean volume (Bld) [Entitic vol] 8.7 fL Normal 6.2-12.0 [facility] Comment on above: Performed By: #### L 501.2300, L500.4050, L501.5200, L100.0100 ####[facility] [address] [place], [address] Platelets (Bld) [#/Vol] 442 10*3/uL Normal 150-450 [facility] Comment on above: Performed By: #### L 501.2300, L500.4050, L501.5200, L100.0100 ####[facility] [address] [place], [address] RBC (Bld) [#/Vol] 3.29 10*6/uL Low 4.2-5.4 [facility] Comment on above: Performed By: #### L 501.2300, L500.4050, L501.5200, L100.0100 ####[facility] [address] [place], [address] RDW SD 59.0 fl High 35.1-43.9 [facility] Comment on above: Performed By: #### L 501.2300, L500.4050, L501.5200, L100.0100 ####[facility] [address] [place], [address] WBC (Bld) [#/Vol] 8.5 10*3/uL Normal 4.4-11.0 [facility] Comment on above: Performed By: #### L 501.2300, L500.4050, L501.5200, L100.0100 ####[facility] [address] [place], [address] Comprehensive Metabolic Prof [facility] 09-19-2024 Albumin [Mass/Vol] 3.5 g/dL Normal 3.4-4.8 [facility] Comment on above: Performed By: #### L 501.2300, L500.4050, L501.5200, L100.0100 ####[facility] [address] [place], [address] Albumin/Globulin [Mass ratio] 1.4 {ratio} Normal 0.9-2.4 [facility] Comment on above: Performed By: #### L 501.2300, L500.4050, L501.5200, L100.0100 ####[facility] [address] [place], [address] ALK PHOS 91 U/L Normal 35-104 [facility] Comment on above: Performed By: #### L 501.2300, L500.4050, L501.5200, L100.0100 ####[facility] [address] [place], [address] ALT [Catalytic activity/Vol] 12 U/L Normal <=34 [facility] Comment on above: Performed By: #### L 501.2300, L500.4050, L501.5200, L100.0100 ####[facility] [address] [place], [address] AST [Catalytic activity/Vol] 13 U/L Normal <=31 [facility] Comment on above: Performed By: #### L 501.2300, L500.4050, L501.5200, L100.0100 ####[facility] [address] [place], [address] Bilirubin [Mass/Vol] 0.20 mg/dL Normal 0.00-1.30 [facility] Comment on above: Performed By: #### L 501.2300, L500.4050, L501.5200, L100.0100 ####[facility] [address] [place], [address] BUN/CRE 22.5 RATIO High 10-20 [facility] Comment on above: Performed By: #### L 501.2300, L500.4050, L501.5200, L100.0100 ####[facility] [address] [place], [address] Calcium [Mass/Vol] 8.1 mg/dL Normal 7.6-11.0 [facility] Comment on above: Performed By: #### L 501.2300, L500.4050, L501.5200, L100.0100 ####[facility] [address] [place], [address] Chloride [Moles/Vol] 104 mmol/L Normal 98-108 [facility] Comment on above: Performed By: #### L 501.2300, L500.4050, L501.5200, L100.0100 ####[facility] [address] [place], [address] CO2 [Moles/Vol] 18.9 mmol/L Low 21.0-32.0 [facility] Comment on above: Performed By: #### L 501.2300, L500.4050, L501.5200, L100.0100 ####[facility] [address] [place], [address] Creatinine [Mass/Vol] 1.27 mg/dL High 0.70-1.20 [facility] Comment on above: Performed By: #### L 501.2300, L500.4050, L501.5200, L100.0100 ####[facility] [address] [place], [address] ECRCL 36.90 ml/min Low 50-250 [facility] Comment on above: Performed By: #### L 501.2300, L500.4050, L501.5200, L100.0100 ####[facility] [address] [place], [address] GAP 11 Normal 5-15 [facility] Comment on above: Performed By: #### L 501.2300, L500.4050, L501.5200, L100.0100 ####[facility] [address] [place], [address] GFR/1.73 sq M.predicted among non-blacks MDRD (S/P/Bld) [Vol rate/Area] 46 mL/min/{1.73_m2} Low >60 [facility] Comment on above: Result Comment: mL/m in/1.73m2 CKD-EPI Creatinine Equation (2020) Performed By: #### L 501.2300, L500.4050, L501.5200, L100.0100 ####[facility] [address] [place], [address] Globulin (S) [Mass/Vol] 2.5 g/dL Normal 2.2-4.2 [facility] Comment on above: Performed By: #### L 501.2300, L500.4050, L501.5200, L100.0100 ####[facility] [address] [place], [address] Glucose [Mass/Vol] 104 mg/dL High 70-99 [facility] Comment on above: Performed By: #### L 501.2300, L500.4050, L501.5200, L100.0100 ####[facility] [address] [place], [address] Potassium [Moles/Vol] 3.1 mmol/L Low 3.3-5.1 [facility] Comment on above: Performed By: #### L 501.2300, L500.4050, L501.5200, L100.0100 ####[facility] [address] [place], [address] Sodium [Moles/Vol] 133 mmol/L Normal 133-145 [facility] Comment on above: Performed By: #### L 501.2300, L500.4050, L501.5200, L100.0100 ####[facility] [address] [place], [address] T PROT 6.0 g/dL Normal 5.9-8.4 [facility] Comment on above: Performed By: #### L 501.2300, L500.4050, L501.5200, L100.0100 ####[facility] [address] [place], [address] Urea nitrogen [Mass/Vol] 29 mg/dL High 4-19 [facility] Comment on above: Performed By: #### L 501.2300, L500.4050, L501.5200, L100.0100 ####[facility] [address] [place], [address] Magnesiumon 09-19-2024 Magnesium [Mass/Vol] 2.1 mg/dL Normal 1.5-2.2 [facility] Comment on above: Performed By: #### L 501.2300, L500.4050, L501.5200, L100.0100 ####[facility] [address] [place], [address] Phosphoruson 09-19-2024 Phosphate [Mass/Vol] 2.8 mg/dL Normal 2.7-4.5 [facility] Comment on above: Performed By: #### L 501.2300, L500.4050, L501.5200, L100.0100 ####[facility] [address] [place], [address] Abdomen Single View (Portabl e)on 09-18-2024 Abdomen Single View (Portable) Normal [facility] Bedside Glucoseon 09-18-2024 FINGERSTICK GLU 169 mg/dL High 74-106 [facility] Comment on above: Result Comment: LOURDES GORMAN OF PATIENT CARE PER NURSING PROTOCOL Performed By: #### L 501.080 ####[facility] [address] [place], [address] FINGERSTICK GLU 67 mg/dL Low 74-106 [facility] Comment on above: Result Comment: LOURDES GEMENT OF PATIENT CARE PER NURSING PROTOCOL Performed By: #### L 501.080 ####[facility] [address] [place], [address] FINGERSTICK GLU 195 mg/dL High 74-106 [facility] Comment on above: Result Comment: LOURDES GEMENT OF PATIENT CARE PER NURSING PROTOCOL Performed By: #### L 501.080 ####[facility] [address] [place], [address] FINGERSTICK GLU 181 mg/dL High 74-106 [facility] Comment on above: Result Comment: LOURDES GEMENT OF PATIENT CARE PER NURSING PROTOCOL Performed By: #### L 501.080 ####[facility] [address] [place], [address] FINGERSTICK GLU 172 mg/dL High 74-106 [facility] Comment on above: Result Comment: LOURDES GEMENT OF PATIENT CARE PER NURSING PROTOCOL Performed By: #### L 501.080 ####[facility] [address] [place], [address] FINGERSTICK GLU 219 mg/dL High 74-106 [facility] Comment on above: Result Comment: LOURDES GEMENT OF PATIENT CARE PER NURSING PROTOCOL Performed By: #### L 501.080 ####[facility] [address] [place], [address] CBC W/Diff, Automatedon 04-3 0-2025 Absolute Lymph 2.16 X10 3/uL Normal 0.83-4.51 [facility] Comment on above: Performed By: #### L 100.0100, L500.4050 ####[facility] [address] [place], [address] Absolute Neut 9.1 X10 3/uL High 2.0-7.7 [facility] Comment on above: Performed By: #### L 100.0100, L500.4050 ####[facility] [address] [place], [address] Basophils/100 WBC (Bld) 0.5 % Normal 0-1 [facility] Comment on above: Performed By: #### L 100.0100, L500.4050 ####[facility] [address] [place], [address] Eosinophils/100 WBC (Bld) 2.4 % Normal 0-5 [facility] Comment on above: Performed By: #### L 100.0100, L500.4050 ####[facility] [address] [place], [address] Erythrocyte distribution width (RBC) [Ratio] 18.6 % High 11.6-14.6 [facility] Comment on above: Performed By: #### L 100.0100, L500.4050 ####[facility] [address] [place], [address] Hematocrit (Bld) [Volume fraction] 32.5 % Low 37-47 [facility] Comment on above: Performed By: #### L 100.0100, L500.4050 ####[facility] [address] [place], [address] Hemoglobin (Bld) [Mass/Vol] 10.1 g/dL Low 12.0-15.0 [facility] Comment on above: Performed By: #### L 100.0100, L500.4050 ####[facility] [address] [place], [address] IG% 0.600 Normal 0.0-0.9 [facility] Comment on above: Result Comment: IG% - Immature Granulocytes (promyelocytes, myelocytes andmetamyelocytes) > 1% indicates that a LEFT SHIFT is Present. Performed By: #### L 100.0100, L500.4050 ####[facility] [address] [place], [address] Lymphocytes/100 WBC (Bld) 17.1 % Low 19-41 [facility] Comment on above: Performed By: #### L 100.0100, L500.4050 ####[facility] [address] [place], [address] MCH (RBC) [Entitic mass] 27.1 pg Normal 27.0-32.0 [facility] Comment on above: Performed By: #### L 100.0100, L500.4050 ####[facility] [address] [place], [address] MCHC (RBC) [Mass/Vol] 31.1 g/dL Low 32-36 [facility] Comment on above: Performed By: #### L 100.0100, L500.4050 ####[facility] [address] [place], [address] MCV (RBC) [Entitic vol] 87.1 fL Normal 81-99 [facility] Comment on above: Performed By: #### L 100.0100, L500.4050 ####[facility] [address] [place], [address] Monocytes/100 WBC (Bld) 7.4 % Normal 0-10 [facility] Comment on above: Performed By: #### L 100.0100, L500.4050 ####[facility] [address] [place], [address] Neutrophils/100 WBC (Bld) 72.0 % High 47-70 [facility] Comment on above: Performed By: #### L 100.0100, L500.4050 ####[facility] [address] [place], [address] Nucleated RBC (Bld) [#/Vol] 0 10*3/uL Normal 0-5 [facility] Comment on above: Performed By: #### L 100.0100, L500.4050 ####[facility] [address] [place], [address] Platelet mean volume (Bld) [Entitic vol] 9.0 fL Normal 6.2-12.0 [facility] Comment on above: Performed By: #### L 100.0100, L500.4050 ####[facility] [address] [place], [address] Platelets (Bld) [#/Vol] 561 10*3/uL High 150-450 [facility] Comment on above: Performed By: #### L 100.0100, L500.4050 ####[facility] [address] [place], [address] RBC (Bld) [#/Vol] 3.73 10*6/uL Low 4.2-5.4 [facility] Comment on above: Performed By: #### L 100.0100, L500.4050 ####[facility] [address] [place], [address] RDW SD 59.0 fl High 35.1-43.9 [facility] Comment on above: Performed By: #### L 100.0100, L500.4050 ####[facility] [address] [place], [address] WBC (Bld) [#/Vol] 12.7 10*3/uL High 4.4-11.0 [facility] Comment on above: Performed By: #### L 100.0100, L500.4050 ####[facility] [address] [place], [address] CDIFF (PCR)on 09-18-2024 CDIFF Normal [facility] Comment on above: Performed By: #### M 100.637, M100.6796 ####[facility] [address] [place], [address] Comprehensive Metabolic Prof ilon 09-18-2024 Albumin [Mass/Vol] 3.8 g/dL Normal 3.4-4.8 [facility] Comment on above: Performed By: #### L 100.0100, L500.4050 ####[facility] [address] [place], [address] Albumin/Globulin [Mass ratio] 1.4 {ratio} Normal 0.9-2.4 [facility] Comment on above: Performed By: #### L 100.0100, L500.4050 ####[facility] [address] [place], [address] ALK PHOS 107 U/L High 35-104 [facility] Comment on above: Performed By: #### L 100.0100, L500.4050 ####[facility] [address] [place], [address] ALT [Catalytic activity/Vol] 14 U/L Normal <=34 [facility] Comment on above: Performed By: #### L 100.0100, L500.4050 ####[facility] [address] [place], [address] AST [Catalytic activity/Vol] 14 U/L Normal <=31 [facility] Comment on above: Performed By: #### L 100.0100, L500.4050 ####[facility] [address] [place], [address] Bilirubin [Mass/Vol] 0.22 mg/dL Normal 0.00-1.30 [facility] Comment on above: Performed By: #### L 100.0100, L500.4050 ####[facility] [address] [place], [address] BUN/CRE 22.5 RATIO High 10-20 [facility] Comment on above: Performed By: #### L 100.0100, L500.4050 ####[facility] [address] [place], [address] Calcium [Mass/Vol] 8.4 mg/dL Normal 7.6-11.0 [facility] Comment on above: Performed By: #### L 100.0100, L500.4050 ####[facility] [address] [place], [address] Chloride [Moles/Vol] 102 mmol/L Normal 98-108 [facility] Comment on above: Performed By: #### L 100.0100, L500.4050 ####[facility] [address] [place], [address] CO2 [Moles/Vol] 16.3 mmol/L Low 21.0-32.0 [facility] Comment on above: Performed By: #### L 100.0100, L500.4050 ####[facility] [address] [place], [address] Creatinine [Mass/Vol] 1.58 mg/dL High 0.70-1.20 [facility] Comment on above: Performed By: #### L 100.0100, L500.4050 ####[facility] [address] [place], [address] ECRCL 29.39 ml/min Low 50-250 [facility] Comment on above: Performed By: #### L 100.0100, L500.4050 ####[facility] [address] [place], [address] GAP 13 Normal 5-15 [facility] Comment on above: Performed By: #### L 100.0100, L500.4050 ####[facility] [address] [place], [address] GFR/1.73 sq M.predicted among non-blacks MDRD (S/P/Bld) [Vol rate/Area] 35 mL/min/{1.73_m2} Low >60 [facility] Comment on above: Result Comment: mL/m in/1.73m2 CKD-EPI Creatinine Equation (2020) Performed By: #### L 100.0100, L500.4050 ####[facility] [address] [place], [address] Globulin (S) [Mass/Vol] 2.8 g/dL Normal 2.2-4.2 [facility] Comment on above: Performed By: #### L 100.0100, L500.4050 ####[facility] [address] [place], [address] Glucose [Mass/Vol] 168 mg/dL High 70-99 [facility] Comment on above: Performed By: #### L 100.0100, L500.4050 ####[facility] [address] [place], [address] Potassium [Moles/Vol] 4.4 mmol/L Normal 3.3-5.1 [facility] Comment on above: Performed By: #### L 100.0100, L500.4050 ####[facility] [address] [place], [address] Sodium [Moles/Vol] 131 mmol/L Low 133-145 [facility] Comment on above: Performed By: #### L 100.0100, L500.4050 ####[facility] [address] [place], [address] T PROT 6.6 g/dL Normal 5.9-8.4 [facility] Comment on above: Performed By: #### L 100.0100, L500.4050 ####[facility] [address] [place], [address] Urea nitrogen [Mass/Vol] 36 mg/dL High 4-19 [facility] Comment on above: Performed By: #### L 100.0100, L500.4050 ####[facility] [address] [place], [address] Consultation - Surgicalon Consultation - Surgical Normal [facility] ENTERIC PATHOGEN PANEL STOOL on 09-18-2024 EP PANEL Normal [facility] Comment on above: Performed By: #### M 100.637, M100.6796 ####[facility] [address] [place], [address] Ferritinon 09-18-2024 Ferritin [Mass/Vol] 21 ng/mL Low 22-378 [facility] Comment on above: Performed By: #### L 503.6030, L100.9950, L503.6550 ####[facility] [address] [place], [address] Iron+Iron Binding Capacityon 09-18-2024 Iron [Mass/Vol] 25 ug/dL Low 50-170 [facility] Comment on above: Performed By: #### L 503.6030, L100.9950, L503.6550 ####[facility] [address] [place], [address] IRON SATURATION 6.0 Low 13-59 [facility] Comment on above: Performed By: #### L 503.6030, L100.9950, L503.6550 ####[facility] [address] [place], [address] TIBC 384 ug/dL Normal 250-450 [facility] Comment on above: Performed By: #### L 503.6030, L100.9950, L503.6550 ####[facility] [address] [place], [address] UIBC 359 ug/dL Normal 228-428 [facility] Comment on above: Performed By: #### L 503.6030, L100.9950, L503.6550 ####[facility] [address] [place], [address] Lactic Acidon 09-18-2024 Lactate [Moles/Vol] 2.0 mmol/L Normal 0.0-2.0 [facility] Comment on above: Result Comment: Crit ical Result(s) Called at: 0117 by: TARAN RAMIREZ??Results read back by same. Performed By: #### L 503.6005 ####[facility] [address] [place], [address] Retic Panelon 09-18-2024 IM RET FRACTION 14.60 Normal 3.00-15.90 [facility] Comment on above: Performed By: #### L 503.6030, L100.9950, L503.6550 ####[facility] [address] [place], [address] RET-HE 27.8 pg Low 30-35 [facility] Comment on above: Performed By: #### L 503.6030, L100.9950, L503.6550 ####[facility] [address] [place], [address] Retic Count 1.98 High 0.5-1.5 [facility] Comment on above: Performed By: #### L 503.6030, L100.9950, L503.6550 ####[facility] [address] [place], [address] ALP [Catalytic activity/Vol] Ordered By: Carrillo Lenz on 09-17-2024 Serum or plasma alkaline phosphatase measurement 160 U/L High 35-104 [facility] Abdomen/Pelvis W IV Cont ONL Yon 09-17-2024 Abdomen/Pelvis W IV Cont ONLY Normal [facility] Absolute neutrophil countOrd ered By: Carrillo Lenz on 09-17-2024 Absolute neutrophil count 14.5 X10^3/uL High 2.0-7.7 [facility] Albumin [Mass/Vol]Ordered By : Carrillo Lenz on 09-17-2024 Serum or plasma albumin measurement (mass/volume) 5.0 g/dL High 3.4-4.8 [facility] Albumin/Globulin [Mass ratio ]Ordered By: Carrillo Lenz on 09-17-2024 Serum or plasma albumin/globulin mass ratio 1.1 RATIO 0.9-2.4 [facility] Anion gap [Moles/Vol]Ordered By: Carrillo Lenz on 09-17-2024 Anion gap in Serum or Plasma 17 High 5-15 [facility] Arterial patency Wrist arter y --pre arterial punctureOrdered By: ED PROVIDER on 09-17-2024 Assessment of wrist artery patency prior to arterial puncture Positive [facility] BUN/creatinine ratioOrdered By: Carrillo Lenz on 09-17-2024 BUN/creatinine ratio 20.5 RATIO High 10-20 [facility] Base excess Calc (BldV) [Mol es/Vol]Ordered By: ED PROVIDER on 09-17-2024 Blood base excess determination -9 mmol/L Low -2-2 [facility] Basophil percentageOrdered B y: Carrillo Lenz on 09-17-2024 Basophil percentage 0.4 % 0-1 [facility] Beta hydroxybutyrate [Mass/V ol]Ordered By: Carrillo Lenz on 09-17-2024 Beta-hydroxybutyrate 0.1 mmol/L 0.0-0.3 [facility] Beta-Hydroxbytyrateon 2024 BETA-HYDROXYBUT 0.1 mmol/L Normal 0.0-0.3 [facility] Comment on above: Performed By: #### L 100.0100, L503.6005, L500.4050, L501.2450, L501.6901, L300.4310, L300.3900 ####[facility] [address] [place], [address] Bilirubin, totalOrdered By: Carrillo Lenz on 09-17-2024 Bilirubin, total 0.40 mg/dL 0.00-1.30 [facility]25 JONO TEST Positive Normal [facility] Comment on above: Performed By: #### L 9000.0800 ####[facility] [address] [place], [address] Base excess Calc (Bld) [Moles/Vol] -9 mmol/L Low -2 to +2 [facility] Comment on above: Performed By: #### L 9000.0800 ####[facility] [address] [place], [address] Blood Gas Type ART Normal [facility] Comment on above: Performed By: #### L 9000.0800 ####[facility] [address] [place], [address] CO2 [Moles/Vol] 19 mmol/L Normal [facility] Comment on above: Performed By: #### L 9000.0800 ####[facility] [address] [place], [address] HCO3 (Bld) [Moles/Vol] 17.7 mmol/L Low 22-[address] [facility] Comment on above: Performed By: #### L 9000.0800 ####[facility] [address] [place], [address] Mode Not entered Normal [facility] Comment on above: Performed By: #### L 9000.0800 ####[facility] [address] [place], [address] O2 Delivery Dev Room Air Normal [facility] Comment on above: Performed By: #### L 9000.0800 ####[facility] [address] [place], [address] pCO2 39.0 mmHg Normal 35-45 [facility] Comment on above: Performed By: #### L 9000.0800 ####[facility] [address] [place], [address] pH (Bld) 7.27 [pH] Low 7.35-7.45 [facility] Comment on above: Performed By: #### L 9000.0800 ####[facility] [address] [place], [address] PO2 80 mmHG Normal 75-100 [facility] Comment on above: Performed By: #### L 9000.0800 ####[facility] [address] [place], [address] SITE L Radial Normal [facility] Comment on above: Performed By: #### L 9000.0800 ####[facility] [address] [place], [address] SO2 94 Low 95-99 [facility] Comment on above: Performed By: #### L 9000.0800 ####[facility] [address] [place], [address] Blood bicarbonate measuremen tOrdered By: ED PROVIDER on 09-17-2024 Blood bicarbonate measurement 17.7 mmol/L Low 22-26 [facility] CBC W/Diff, Automatedon 08-21 Absolute Lymph 1.29 X10 3/uL Normal 0.83-4.51 [facility] Comment on above: Performed By: #### L 100.0100, L503.6005, L500.4050, L501.2450, L501.6901, L300.4310, L300.3900 ####[facility] [address] [place], [address] Absolute Neut 14.5 X10 3/uL High 2.0-7.7 [facility] Comment on above: Performed By: #### L 100.0100, L503.6005, L500.4050, L501.2450, L501.6901, L300.4310, L300.3900 ####[facility] [address] [place], [address] Basophils/100 WBC (Bld) 0.4 % Normal 0-1 [facility] Comment on above: Performed By: #### L 100.0100, L503.6005, L500.4050, L501.2450, L501.6901, L300.4310, L300.3900 ####[facility] [address] [place], [address] Eosinophils/100 WBC (Bld) 0.5 % Normal 0-5 [facility] Comment on above: Performed By: #### L 100.0100, L503.6005, L500.4050, L501.2450, L501.6901, L300.4310, L300.3900 ####[facility] [address] [place], [address] Erythrocyte distribution width (RBC) [Ratio] 18.7 % High 11.6-14.6 [facility] Comment on above: Performed By: #### L 100.0100, L503.6005, L500.4050, L501.2450, L501.6901, L300.4310, L300.3900 ####[facility] [address] [place], [address] Hematocrit (Bld) [Volume fraction] 40.4 % Normal 37-47 [facility] Comment on above: Performed By: #### L 100.0100, L503.6005, L500.4050, L501.2450, L501.6901, L300.4310, L300.3900 ####[facility] [address] [place], [address] Hemoglobin (Bld) [Mass/Vol] 13.0 g/dL Normal 12.0-15.0 [facility] Comment on above: Performed By: #### L 100.0100, L503.6005, L500.4050, L501.2450, L501.6901, L300.4310, L300.3900 ####[facility] [address] [place], [address] IG% 0.500 Normal 0.0-0.9 [facility] Comment on above: Result Comment: IG% - Immature Granulocytes (promyelocytes, myelocytes andmetamyelocytes) > 1% indicates that a LEFT SHIFT is Present. Performed By: #### L 100.0100, L503.6005, L500.4050, L501.2450, L501.6901, L300.4310, L300.3900 ####[facility] [address] [place], [address] Lymphocytes/100 WBC (Bld) 7.7 % Low 19-41 [facility] Comment on above: Performed By: #### L 100.0100, L503.6005, L500.4050, L501.2450, L501.6901, L300.4310, L300.3900 ####[facility] [address] [place], [address] MCH (RBC) [Entitic mass] 27.4 pg Normal 27.0-32.0 [facility] Comment on above: Performed By: #### L 100.0100, L503.6005, L500.4050, L501.2450, L501.6901, L300.4310, L300.3900 ####[facility] [address] [place], [address] MCHC (RBC) [Mass/Vol] 32.2 g/dL Normal 32-36 [facility] Comment on above: Performed By: #### L 100.0100, L503.6005, L500.4050, L501.2450, L501.6901, L300.4310, L300.3900 ####[facility] [address] [place], [address] MCV (RBC) [Entitic vol] 85.1 fL Normal 81-99 [facility] Comment on above: Performed By: #### L 100.0100, L503.6005, L500.4050, L501.2450, L501.6901, L300.4310, L300.3900 ####[facility] [address] [place], [address] Monocytes/100 WBC (Bld) 3.6 % Normal 0-10 [facility] Comment on above: Performed By: #### L 100.0100, L503.6005, L500.4050, L501.2450, L501.6901, L300.4310, L300.3900 ####[facility] [address] [place], [address] Neutrophils/100 WBC (Bld) 87.3 % High 47-70 [facility] Comment on above: Performed By: #### L 100.0100, L503.6005, L500.4050, L501.2450, L501.6901, L300.4310, L300.3900 ####[facility] [address] [place], [address] Nucleated RBC (Bld) [#/Vol] 0 10*3/uL Normal 0-5 [facility] Comment on above: Performed By: #### L 100.0100, L503.6005, L500.4050, L501.2450, L501.6901, L300.4310, L300.3900 ####[facility] [address] [place], [address] Platelet mean volume (Bld) [Entitic vol] 8.9 fL Normal 6.2-12.0 [facility] Comment on above: Performed By: #### L 100.0100, L503.6005, L500.4050, L501.2450, L501.6901, L300.4310, L300.3900 ####[facility] [address] [place], [address] Platelets (Bld) [#/Vol] 716 10*3/uL High 150-450 [facility] Comment on above: Performed By: #### L 100.0100, L503.6005, L500.4050, L501.2450, L501.6901, L300.4310, L300.3900 ####[facility] [address] [place], [address] RBC (Bld) [#/Vol] 4.75 10*6/uL Normal 4.2-5.4 [facility] Comment on above: Performed By: #### L 100.0100, L503.6005, L500.4050, L501.2450, L501.6901, L300.4310, L300.3900 ####[facility] [address] [place], [address] RDW SD 58.6 fl High 35.1-43.9 [facility] Comment on above: Performed By: #### L 100.0100, L503.6005, L500.4050, L501.2450, L501.6901, L300.4310, L300.3900 ####[facility] [address] [place], [address] WBC (Bld) [#/Vol] 16.7 10*3/uL High 4.4-11.0 [facility] Comment on above: Performed By: #### L 100.0100, L503.6005, L500.4050, L501.2450, L501.6901, L300.4310, L300.3900 ####[facility] [address] [place], [address] Calcium [Mass/Vol]Ordered By : Carrillo Lenz on 09-17-2024 Serum or plasma calcium measurement (mass/volume) 10.5 mg/dL 7.6-11.0 [facility] Carbon dioxide, total [Moles /volume] in Central venous bloodOrdered By: Carrillo Lenz on 09-17-2024 Carbon dioxide, total [Moles/volume] in Central venous blood 19.6 mmol/L Low 21.0-32.0 [facility] Chloride assayOrdered By: Bayron Lenz on 09-17-2024 Chloride assay 86 mmol/L Low 98-108 [facility] Clarity (U)Ordered By: Carrillo Lenz on 09-17-2024 Urine clarity Clear Clear [facility] Color (U)Ordered By: Carrillo medina on 09-17-2024 Urine color determination Yellow Yellow [facility] Comprehensive Metabolic Prof ilon 09-17-2024 Albumin [Mass/Vol] 5.0 g/dL High 3.4-4.8 [facility] Comment on above: Performed By: #### L 100.0100, L503.6005, L500.4050, L501.2450, L501.6901, L300.4310, L300.3900 ####[facility] [address] [place], [place], [phone] Albumin/Globulin [Mass ratio] 1.1 {ratio} Normal 0.9-2.4 [facility] Comment on above: Performed By: #### L 100.0100, L503.6005, L500.4050, L501.2450, L501.6901, L300.4310, L300.3900 ####[facility] [address] [place], [address] ALK PHOS 160 U/L High 35-104 [facility] Comment on above: Performed By: #### L 100.0100, L503.6005, L500.4050, L501.2450, L501.6901, L300.4310, L300.3900 ####[facility] [address] [place], [address] ALT [Catalytic activity/Vol] 19 U/L Normal <=34 [facility] Comment on above: Performed By: #### L 100.0100, L503.6005, L500.4050, L501.2450, L501.6901, L300.4310, L300.3900 ####[facility] [address] [place], [address] AST [Catalytic activity/Vol] 19 U/L Normal <=31 [facility] Comment on above: Performed By: #### L 100.0100, L503.6005, L500.4050, L501.2450, L501.6901, L300.4310, L300.3900 ####[facility] [address] [place], [address] Bilirubin [Mass/Vol] 0.40 mg/dL Normal 0.00-1.30 [facility] Comment on above: Performed By: #### L 100.0100, L503.6005, L500.4050, L501.2450, L501.6901, L300.4310, L300.3900 ####[facility] [address] [place], [address] BUN/CRE 20.5 RATIO High 10-20 [facility] Comment on above: Performed By: #### L 100.0100, L503.6005, L500.4050, L501.2450, L501.6901, L300.4310, L300.3900 ####[facility] [address] [place], [address] Calcium [Mass/Vol] 10.5 mg/dL Normal 7.6-11.0 [facility] Comment on above: Performed By: #### L 100.0100, L503.6005, L500.4050, L501.2450, L501.6901, L300.4310, L300.3900 ####[facility] [address] [place], [address] Chloride [Moles/Vol] 86 mmol/L Low 98-108 [facility] Comment on above: Performed By: #### L 100.0100, L503.6005, L500.4050, L501.2450, L501.6901, L300.4310, L300.3900 ####[facility] [address] [place], [address] CO2 [Moles/Vol] 19.6 mmol/L Low 21.0-32.0 [facility] Comment on above: Performed By: #### L 100.0100, L503.6005, L500.4050, L501.2450, L501.6901, L300.4310, L300.3900 ####[facility] [address] [place], [address] Creatinine [Mass/Vol] 1.74 mg/dL High 0.70-1.20 [facility] Comment on above: Performed By: #### L 100.0100, L503.6005, L500.4050, L501.2450, L501.6901, L300.4310, L300.3900 ####[facility] [address] [place], [address] ECRCL 26.90 ml/min Low 50-250 [facility] Comment on above: Performed By: #### L 100.0100, L503.6005, L500.4050, L501.2450, L501.6901, L300.4310, L300.3900 ####[facility] [address] [place], [address] GAP 17 High 5-15 [facility] Comment on above: Performed By: #### L 100.0100, L503.6005, L500.4050, L501.2450, L501.6901, L300.4310, L300.3900 ####[facility] [address] [place], [address] GFR/1.73 sq M.predicted among non-blacks MDRD (S/P/Bld) [Vol rate/Area] 32 mL/min/{1.73_m2} Low >60 [facility] Comment on above: Result Comment: mL/m in/1.73m2 CKD-EPI Creatinine Equation (2020) Performed By: #### L 100.0100, L503.6005, L500.4050, L501.2450, L501.6901, L300.4310, L300.3900 ####[facility] [address] [place], [address] Globulin (S) [Mass/Vol] 4.4 g/dL High 2.2-4.2 [facility] Comment on above: Performed By: #### L 100.0100, L503.6005, L500.4050, L501.2450, L501.6901, L300.4310, L300.3900 ####[facility] [address] [place], [address] Glucose [Mass/Vol] 321 mg/dL High 70-99 [facility] Comment on above: Performed By: #### L 100.0100, L503.6005, L500.4050, L501.2450, L501.6901, L300.4310, L300.3900 ####[facility] [address] [place], [address] Potassium [Moles/Vol] 5.7 mmol/L High 3.3-5.1 [facility] Comment on above: Performed By: #### L 100.0100, L503.6005, L500.4050, L501.2450, L501.6901, L300.4310, L300.3900 ####[facility] [address] [place], [address] Sodium [Moles/Vol] 122 mmol/L Low 133-145 [facility] Comment on above: Performed By: #### L 100.0100, L503.6005, L500.4050, L501.2450, L501.6901, L300.4310, L300.3900 ####[facility] [address] [place], [address] T PROT 9.4 g/dL High 5.9-8.4 [facility] Comment on above: Performed By: #### L 100.0100, L503.6005, L500.4050, L501.2450, L501.6901, L300.4310, L300.3900 ####[facility] [address] [place], [place], [phone] Urea nitrogen [Mass/Vol] 36 mg/dL High 4-19 [facility] Comment on above: Performed By: #### L 100.0100, L503.6005, L500.4050, L501.2450, L501.6901, L300.4310, L300.3900 ####[facility] [address] [place], [place], [phone] Creatinine [Mass/Vol]Ordered By: Carrillo Lenz on 09-17-2024 Serum creatinine measurement (mass/volume) 1.74 mg/dL High 0.70-1.20 [facility] Emergency Department Summary on 09-17-2024 Emergency Department Summary Normal [facility] Eosinophil percentageOrdered By: Carrillo Lenz on 09-17-2024 Eosinophil percentage 0.5 % 0-5 [facility] Epithelial cells.squamous LM Ql (Urine sed)Ordered By: Carrillo Lenz on 09-17-2024 Squamous epithelial cells detection in urine sediment by light microscopy 5-10 SEEN /hpf 5-10 [facility] Erythrocyte distribution wid th (RBC) [Ratio]Ordered By: Carrillo Lenz on 09-17-2024 Erythrocyte distribution width ratio 18.7 % High 11.6-14.6 [facility] Erythrocyte distribution width standard deviation 58.6 fl High 35.1-43.9 [facility] Estimation of creatinine padma aranceOrdered By: Carrillo Lenz on 09-17-2024 Estimation of creatinine clearance 26.90 ml/min Low 50-250 [facility] GFR/1.73 sq M.predicted andrew g non-blacks MDRD (S/P/Bld) [Vol rate/Area]Ordered By: Carrillo Lenz on 09-17-2024 Glomerular filtration rate (GFR) estimation/1.73 sq m using serum, plasma, or whole b 32 Low >60 [facility] Glucose Ql (U)Ordered By: Bayron Lenz on 09-17-2024 Urine glucose detection 100 mg/dl High Normal [facility] Glucose [Mass/Vol]Ordered By : Carrillo Lenz on 09-17-2024 Serum glucose measurement (mass/volume) 321 mg/dL High 70-99 [facility] H AND P Exam - Hospitaliston 09-17-2024 H&P Exam - Hospitalist Normal [facility] Hematocrit Auto (Bld) [Volum e fraction]Ordered By: Carrillo Lenz on 09-17-2024 Automated blood hematocrit (percentage) 40.4 % 37-47 [facility] Hemoglobin measurementOrdere d By: Carrillo Lenz on 09-17-2024 Hemoglobin measurement 13.0 g/dL 12.0-15.0 [facility] Immature granulocytes/100 WB C Auto (Bld)Ordered By: Carrillo Lenz on 09-17-2024 Automated immature granulocyte percentage 0.500 % 0.0-0.9 [facility] International normalized rat io (INR) calculationOrdered By: Carrillo Lenz on 09-17-2024 International normalized ratio (INR) calculation 1.0 [facility] Lactic Acidon 09-17-2024 Lactate [Moles/Vol] 2.7 mmol/L Invalid Interpretation Code 0.0-2.0 [facility] Comment on above: Order Comment: Y Result Comment: Crit ical Result(s) Called at: 2035 by: SETH LOWE??Results read back by same. Performed By: #### L 100.0100, L503.6005, L500.4050, L501.2450, L501.6901, L300.4310, L300.3900 ####[facility] [id number] [place], [place], [id number] Lactic acid measurementOrder ed By: Carrillo Lenz on 09-17-2024 Lactic acid measurement 2.7 mmol/L High 0.0-2.0 [facility] Lipaseon 09-17-2024 Lipase [Catalytic activity/Vol] 37 U/L Normal 13-75 [facility] Comment on above: Result Comment: Adam richardson note:LIPASE revised reference range effective 22.New Lipase methodology. Expected to produce lower valuesthan the previous assay method.NEW Reference Range: 13 - 75 U/L Performed By: #### L 100.0100, L503.6005, L500.4050, L501.2450, L501.6901, L300.4310, L300.3900 ####[facility] [address] [place], [place], [id number] Lipase measurementOrdered By : Carrillo Lenz on 09-17-2024 Lipase measurement 37 U/L 13-75 [facility] Lymphocytes Auto (Unsp spec) [#/Vol]Ordered By: Carrillo Lenz on 09-17-2024 Absolute lymphocyte count 1.29 X10^3/uL 0.83-4.51 [facility] Lymphocytes/100 WBC Auto (Un sp spec)Ordered By: Carrillo Lenz on 09-17-2024 Automated lymphocyte count as percentage of total leukocytes 7.7 % Low 19-41 [facility] MCV (RBC) [Entitic vol]Order ed By: Carrillo Lenz on 09-17-2024 MCV (mean corpuscular volume) determination 85.1 fL 81-99 [facility] Magnesiumon 09-17-2024 Magnesium [Mass/Vol] 1.3 mg/dL Low 1.5-2.2 [facility] Comment on above: Order Comment: Comme nts: May add to ED labsComments: may add to ED labs Performed By: #### L 501.2300, L501.5200 ####[facility] [address] [place], [place], [id number] Mean corpuscular hemoglobin (MCH) determinationOrdered By: Carrillo Lenz on 09-17-2024 Mean corpuscular hemoglobin (MCH) determination 27.4 pg 27.0-32.0 [facility] Mean corpuscular hemoglobin concentration (MCHC) determinationOrdered By: Carrillo Lenz on 09-17-2024 Mean corpuscular hemoglobin concentration (MCHC) determination 32.2 g/dL 32-36 [facility] Mean platelet volume determi nationOrdered By: Carrillo Lenz on 09-17-2024 Mean platelet volume determination 8.9 fl 6.2-12.0 [facility] Monocyte percentageOrdered B y: Carrillo Lenz on 09-17-2024 Monocyte percentage 3.6 % 0-10 [facility] Neutrophil percentageOrdered By: Carrillo Lenz on 09-17-2024 Neutrophil percentage 87.3 % High 47-70 [facility] No Panel InformationOrdered By: ED PROVIDER on 09-17-2024 ART [facility] L Radial [facility] Not entered [facility] Room Air [facility] Nucleated red blood cell per centageOrdered By: Carrillo Lenz on 09-17-2024 Nucleated red blood cell percentage 0 % 0-5 [facility] Oxygen saturation measuremen tOrdered By: ED PROVIDER on 09-17-2024 Oxygen saturation measurement 94 % Low 95-99 [facility] Partial Thromboplast Timeon 09-17-2024 aPTT Coag (Bld) [Time] 25.4 s Normal 24.1-36.2 [facility] Comment on above: Performed By: #### L 100.0100, L503.6005, L500.4050, L501.2450, L501.6901, L300.4310, L300.3900 ####[facility] [address] [place], [place], [id number] Partial pressure of carbon d ioxide measurementOrdered By: ED PROVIDER on 09-17-2024 Partial pressure of carbon dioxide measurement 39.0 mmHg 35-45 [facility] Partial pressure of oxygen m easurementOrdered By: ED PROVIDER on 09-17-2024 Partial pressure of oxygen measurement 80 mmHG 75-100 [facility] Phosphoruson 09-17-2024 Phosphate [Mass/Vol] 3.5 mg/dL Normal 2.7-4.5 [facility] Comment on above: Order Comment: Comme nts: May add to ED labsComments: may add to ED labs Performed By: #### L 501.2300, L501.5200 ####[facility] [address] [place], [address] Platelet countOrdered By: Bayron Lenz on 09-17-2024 Platelet count 716 K/mm3 High 150-450 [facility] Potassium (Unsp spec) [Mass/ Vol]Ordered By: Carrillo Lenz on 09-17-2024 Potassium measurement (mass/volume) 5.7 mmol/L High 3.3-5.1 [facility] Protein Test strip Ql (U)Ord ered By: Carrillo Lenz on 09-17-2024 Urine protein assay by test strip, semi-quantitative 30 mg/dl High Negative [facility] Prothrombin Time w/INRon INR Coag (PPP) [Relative time] 1.0 {INR} Normal [facility] Comment on above: Performed By: #### L 100.0100, L503.6005, L500.4050, L501.2450, L501.6901, L300.4310, L300.3900 ####[facility] [address] [place], [address] PT Coag (PPP) [Time] 13.4 s Normal 11.7-14.9 [facility] Comment on above: Performed By: #### L 100.0100, L503.6005, L500.4050, L501.2450, L501.6901, L300.4310, L300.3900 ####[facility] [address] [place], [address] Prothrombin timeOrdered By: Carrillo Lenz on 09-17-2024 Prothrombin time 13.4 SECONDS 11.7-14.9 [facility] RBC Auto (Bld) [#/Vol]Ordere d By: Carrillo Lenz on 09-17-2024 Automated blood erythrocyte count 4.75 M/mm3 4.2-5.4 [facility] Serum globulin measurementOr dered By: Carrillo Lenz on 09-17-2024 Serum globulin measurement 4.4 g/dL High 2.2-4.2 [facility] Serum or plasma alanine reese otransferase (ALT) measurementOrdered By: Carrillo Lenz on 09-17-2024 Serum or plasma alanine aminotransferase (ALT) measurement 19 U/L <35 [facility] Sodium levelOrdered By: Carrillo Lenz on 09-17-2024 Sodium level 122 mmol/L Low 133-145 [facility] Specific gravity (U) [Rel de nsity]Ordered By: Carrillo Lenz on 09-17-2024 Urine specific gravity measurement 1.015 1.002-1.03 0 [facility] Total carbon dioxide measure mentOrdered By: ED PROVIDER on 09-17-2024 Total carbon dioxide measurement 19 mmol/L [facility] Total proteinOrdered By: Erica Lenz on 09-17-2024 Total protein 9.4 g/dL High 5.9-8.4 [facility] Urea nitrogen [Mass/Vol]Orde red By: Carrillo Lenz on 09-17-2024 Serum or plasma urea nitrogen measurement (mass/volume) 36 mg/dL High 4-19 [facility] Urinalysis, Completeon 09-17 EPI,SQUAMOUS 5-10 SEEN Normal 5-10 [facility] Comment on above: Order Comment: CLEAN CATCH Performed By: #### L 400.0001 ####[facility] [address] [facility] [address] RBC 0-5 SEEN Normal 0-5 [facility] Comment on above: Order Comment: CLEAN CATCH Performed By: #### L 400.0001 ####[facility] [address] [place], [address] WBC 0-5 SEEN Normal 0-5 [facility] Comment on above: Order Comment: CLEAN CATCH Performed By: #### L 400.0001 ####[facility] [address] [place], [address] BACTERIA 0 SEEN Normal None Seen [facility] Comment on above: Order Comment: CLEAN CATCH Performed By: #### L 400.0001 ####[facility] [address] [place], [address] Mucus Ql (Urine sed) 0 SEEN Normal [facility] Comment on above: Order Comment: CLEAN CATCH Performed By: #### L 400.0001 ####[facility] [address] [place], [address] Urine sediment bacteria coun t by microscopy (number/high power field)Ordered By: Carrillo Lenz on 09-17-2024 Urine sediment bacteria count by microscopy (number/high power field) 0 SEEN /hpf [facility] Urine total bilirubin detect ion by test stripOrdered By: Carrillo Lenz on 09-17-2024 Urine total bilirubin detection by test strip Negative Negative [facility] Urobilinogen Ql (U)Ordered B y: Carrillo Lenz on 09-17-2024 Urine urobilinogen measurement Normal mg/dl Normal [facility] White blood cell (WBC) count Ordered By: Carrillo Lenz on 09-17-2024 White blood cell (WBC) count 16.7 K/mm3 High 4.4-11.0 [facility] White blood cell countOrdere d By: Carrillo Lenz on 09-17-2024 White blood cell count 0-5 SEEN /hpf 0-5 [facility] aPTT Coag (PPP) [Time]Ordere d By: Carrillo Lenz on 09-17-2024 Activated partial thromboplastin time (aPTT) in platelet poor plasma by coagulation a 25.4 Seconds 24.1-36.2 [facility] pH (U)Ordered By: Carrillo frey on 09-17-2024 Urine pH 6.0 5.0 - 8.0 [facility] pH (Unsp spec)Ordered By: ED PROVIDER on 09-17-2024 Measurement, pH 7.27 Low 7.35-7.45 [facility] ALP [Catalytic activity/Vol] Ordered By: Denise Uribe on 07-24-2024 Serum or plasma alkaline phosphatase measurement 123 U/L High 35-104 [facility] ALT [Catalytic activity/Vol] Ordered By: Denise Uribe on 07-24-2024 Serum or plasma alanine aminotransferase (ALT) measurement 7 U/L <35 [facility] Absolute neutrophil countOrd ered By: Denise Uribe on 07-24-2024 Absolute neutrophil count 8.0 X10^3/uL High 2.0-7.7 [facility] Albumin [Mass/Vol]Ordered By : Denise Uribe on 07-24-2024 Serum or plasma albumin measurement (mass/volume) 4.0 g/dL 3.4-4.8 [facility] Albumin/Globulin [Mass ratio ]Ordered By: Denise Uribe on 07-24-2024 Serum or plasma albumin/globulin mass ratio 1.2 RATIO 0.9-2.4 [facility] Anion gap [Moles/Vol]Ordered By: Denise Uribe on 07-24-2024 Anion gap in Serum or Plasma 15 5-15 [facility] BUN/creatinine ratioOrdered By: Denise Uribe on 07-24-2024 BUN/creatinine ratio 16.4 RATIO 10-20 [facility] Basophil percentageOrdered B y: Denise Uribe on 07-24-2024 Basophil percentage 0.4 % 0-1 [facility] Bilirubin, totalOrdered By: Denise Uribe on 07-24-2024 Bilirubin, total 0.28 mg/dL 0.00-1.30 [facility] CBC W/Diff, Automatedon Absolute Lymph 2.18 X10 3/uL Normal 0.83-4.51 [facility] Comment on above: Performed By: #### L 100.0100, L500.4050, L503.6550, L503.0106, L506.1001, L503.6030 ####[facility] [address] [place], [place], [id number] Absolute Neut 8.0 X10 3/uL High 2.0-7.7 [facility] Comment on above: Performed By: #### L 100.0100, L500.4050, L503.6550, L503.0106, L506.1001, L503.6030 ####[facility] [address] [place], [address] Basophils/100 WBC (Bld) 0.4 % Normal 0-1 [facility] Comment on above: Performed By: #### L 100.0100, L500.4050, L503.6550, L503.0106, L506.1001, L503.6030 ####[facility] [address] [place], [address] Eosinophils/100 WBC (Bld) 2.2 % Normal 0-5 [facility] Comment on above: Performed By: #### L 100.0100, L500.4050, L503.6550, L503.0106, L506.1001, L503.6030 ####[facility] [address] [place], [address] Erythrocyte distribution width (RBC) [Ratio] 17.5 % High 11.6-14.6 [facility] Comment on above: Performed By: #### L 100.0100, L500.4050, L503.6550, L503.0106, L506.1001, L503.6030 ####[facility] [address] [place], [address] Hematocrit (Bld) [Volume fraction] 25.9 % Low 37-47 [facility] Comment on above: Performed By: #### L 100.0100, L500.4050, L503.6550, L503.0106, L506.1001, L503.6030 ####[facility] [address] [place], [address] Hemoglobin (Bld) [Mass/Vol] 8.1 g/dL Low 12.0-15.0 [facility] Comment on above: Performed By: #### L 100.0100, L500.4050, L503.6550, L503.0106, L506.1001, L503.6030 ####[facility] [address] [place], [address] IG% 1.200 High 0.0-0.9 [facility] Comment on above: Result Comment: IG% - Immature Granulocytes (promyelocytes, myelocytes andmetamyelocytes) > 1% indicates that a LEFT SHIFT is Present. Performed By: #### L 100.0100, L500.4050, L503.6550, L503.0106, L506.1001, L503.6030 ####[facility] [address] [place], [address] Lymphocytes/100 WBC (Bld) 19.2 % Normal 19-41 [facility] Comment on above: Performed By: #### L 100.0100, L500.4050, L503.6550, L503.0106, L506.1001, L503.6030 ####[facility] [address] [place], [address] MCH (RBC) [Entitic mass] 27.7 pg Normal 27.0-32.0 [facility] Comment on above: Performed By: #### L 100.0100, L500.4050, L503.6550, L503.0106, L506.1001, L503.6030 ####[facility] [address] [place], [address] MCHC (RBC) [Mass/Vol] 31.3 g/dL Low 32-36 [facility] Comment on above: Performed By: #### L 100.0100, L500.4050, L503.6550, L503.0106, L506.1001, L503.6030 ####[facility] [address] [place], [address] MCV (RBC) [Entitic vol] 88.7 fL Normal 81-99 [facility] Comment on above: Performed By: #### L 100.0100, L500.4050, L503.6550, L503.0106, L506.1001, L503.6030 ####[facility] [address] [place], [address] Monocytes/100 WBC (Bld) 7.0 % Normal 0-10 [facility] Comment on above: Performed By: #### L 100.0100, L500.4050, L503.6550, L503.0106, L506.1001, L503.6030 ####[facility] [address] [place], [address] Neutrophils/100 WBC (Bld) 70.0 % Normal 47-70 [facility] Comment on above: Performed By: #### L 100.0100, L500.4050, L503.6550, L503.0106, L506.1001, L503.6030 ####[facility] [address] [place], [address] Nucleated RBC (Bld) [#/Vol] 0.2 10*3/uL Normal 0-5 [facility] Comment on above: Performed By: #### L 100.0100, L500.4050, L503.6550, L503.0106, L506.1001, L503.6030 ####[facility] [address] [place], [address] Platelet mean volume (Bld) [Entitic vol] 9.3 fL Normal 6.2-12.0 [facility] Comment on above: Performed By: #### L 100.0100, L500.4050, L503.6550, L503.0106, L506.1001, L503.6030 ####[facility] [address] [place], [address] Platelets (Bld) [#/Vol] 541 10*3/uL High 150-450 [facility] Comment on above: Performed By: #### L 100.0100, L500.4050, L503.6550, L503.0106, L506.1001, L503.6030 ####[facility] [address] [place], [address] RBC (Bld) [#/Vol] 2.92 10*6/uL Low 4.2-5.4 [facility] Comment on above: Performed By: #### L 100.0100, L500.4050, L503.6550, L503.0106, L506.1001, L503.6030 ####[facility] [address] [place], [address] RDW SD 56.3 fl High 35.1-43.9 [facility] Comment on above: Performed By: #### L 100.0100, L500.4050, L503.6550, L503.0106, L506.1001, L503.6030 ####[facility] [address] [place], [address] WBC (Bld) [#/Vol] 11.4 10*3/uL High 4.4-11.0 [facility] Comment on above: Performed By: #### L 100.0100, L500.4050, L503.6550, L503.0106, L506.1001, L503.6030 ####[facility] [address] [place], [address] Calcium [Mass/Vol]Ordered By : Denise Uribe on 07-24-2024 Serum or plasma calcium measurement (mass/volume) 9.0 mg/dL 7.6-11.0 [facility] Calculated total iron bindin g capacityOrdered By: Denise Uribe on 07-24-2024 Calculated total iron binding capacity 449 ug/dL 250-450 [facility] Carbon dioxide, total [Moles /volume] in Central venous bloodOrdered By: Denise Uribe on 07-24-2024 Carbon dioxide, total [Moles/volume] in Central venous blood 23.7 mmol/L 21.0-32.0 [facility] Chloride assayOrdered By: Jann Uribe on 07-24-2024 Chloride assay 93 mmol/L Low 98-108 [facility] Cobalamin (Vitamin B12) [Mas s/Vol]Ordered By: Denise Uribe on 07-24-2024 Vitamin B12 ser/plas 639 pg/mL 180-914 [facility] Comprehensive Metabolic Prof ilon 07-24-2024 Albumin [Mass/Vol] 4.0 g/dL Normal 3.4-4.8 [facility] Comment on above: Performed By: #### L 100.0100, L500.4050, L503.6550, L503.0106, L506.1001, L503.6030 ####[facility] [address] [place], Albumin/Globulin [Mass ratio] 1.2 {ratio} Normal 0.9-2.4 [facility] Comment on above: Performed By: #### L 100.0100, L500.4050, L503.6550, L503.0106, L506.1001, L503.6030 ####[facility] [address] [place], [address] ALK PHOS 123 U/L High 35-104 [facility] Comment on above: Performed By: #### L 100.0100, L500.4050, L503.6550, L503.0106, L506.1001, L503.6030 ####[facility] [address] [place], [address] ALT [Catalytic activity/Vol] 7 U/L Normal <=34 [facility] Comment on above: Performed By: #### L 100.0100, L500.4050, L503.6550, L503.0106, L506.1001, L503.6030 ####[facility] [address] [place], [address] AST [Catalytic activity/Vol] 19 U/L Normal <=31 [facility] Comment on above: Performed By: #### L 100.0100, L500.4050, L503.6550, L503.0106, L506.1001, L503.6030 ####[facility] [address] [place], [address] Bilirubin [Mass/Vol] 0.28 mg/dL Normal 0.00-1.30 [facility] Comment on above: Performed By: #### L 100.0100, L500.4050, L503.6550, L503.0106, L506.1001, L503.6030 ####[facility] [address] [place], [address] BUN/CRE 16.4 RATIO Normal 10-20 [facility] Comment on above: Performed By: #### L 100.0100, L500.4050, L503.6550, L503.0106, L506.1001, L503.6030 ####[facility] [address] [place], [address] Calcium [Mass/Vol] 9.0 mg/dL Normal 7.6-11.0 [facility] Comment on above: Performed By: #### L 100.0100, L500.4050, L503.6550, L503.0106, L506.1001, L503.6030 ####[facility] [address] [place], [address] Chloride [Moles/Vol] 93 mmol/L Low 98-108 [facility] Comment on above: Performed By: #### L 100.0100, L500.4050, L503.6550, L503.0106, L506.1001, L503.6030 ####[facility] [address] [place], [address] CO2 [Moles/Vol] 23.7 mmol/L Normal 21.0-32.0 [facility] Comment on above: Performed By: #### L 100.0100, L500.4050, L503.6550, L503.0106, L506.1001, L503.6030 ####[facility] [address] [place], [address] Creatinine [Mass/Vol] 1.16 mg/dL Normal 0.70-1.20 [facility] Comment on above: Performed By: #### L 100.0100, L500.4050, L503.6550, L503.0106, L506.1001, L503.6030 ####[facility] [address] [place], [address] GAP 15 Normal 5-15 [facility] Comment on above: Performed By: #### L 100.0100, L500.4050, L503.6550, L503.0106, L506.1001, L503.6030 ####[facility] [address] [place], [address] GFR/1.73 sq M.predicted among non-blacks MDRD (S/P/Bld) [Vol rate/Area] 51 mL/min/{1.73_m2} Low >60 [facility] Comment on above: Result Comment: mL/m in/1.73m2 CKD-EPI Creatinine Equation (2020) Performed By: #### L 100.0100, L500.4050, L503.6550, L503.0106, L506.1001, L503.6030 ####[facility] [address] [place], [address] Globulin (S) [Mass/Vol] 3.3 g/dL Normal 2.2-4.2 [facility] Comment on above: Performed By: #### L 100.0100, L500.4050, L503.6550, L503.0106, L506.1001, L503.6030 ####[facility] [address] [place], [address] Glucose [Mass/Vol] 196 mg/dL High 70-99 [facility] Comment on above: Performed By: #### L 100.0100, L500.4050, L503.6550, L503.0106, L506.1001, L503.6030 ####[facility] [address] [place], [address] Potassium [Moles/Vol] 4.5 mmol/L Normal 3.3-5.1 [facility] Comment on above: Performed By: #### L 100.0100, L500.4050, L503.6550, L503.0106, L506.1001, L503.6030 ####[facility] [address] [place], [address] Sodium [Moles/Vol] 132 mmol/L Low 133-145 [facility] Comment on above: Performed By: #### L 100.0100, L500.4050, L503.6550, L503.0106, L506.1001, L503.6030 ####[facility] [address] [place], [address] T PROT 7.3 g/dL Normal 5.9-8.4 [facility] Comment on above: Performed By: #### L 100.0100, L500.4050, L503.6550, L503.0106, L506.1001, L503.6030 ####[facility] [address] [place], [address] Urea nitrogen [Mass/Vol] 19 mg/dL Normal 4-19 [facility] Comment on above: Performed By: #### L 100.0100, L500.4050, L503.6550, L503.0106, L506.1001, L503.6030 ####[facility] [address] [place], [place], [address] Creatinine [Mass/Vol]Ordered By: Denise Uribe on 07-24-2024 Serum creatinine measurement (mass/volume) 1.16 mg/dL 0.70-1.20 [facility] Eosinophil percentageOrdered By: Denise Uribe on 07-24-2024 Eosinophil percentage 2.2 % 0-5 [facility] Erythrocyte distribution wid th (RBC) [Ratio]Ordered By: Denise Uribe on 07-24-2024 Erythrocyte distribution width ratio 17.5 % High 11.6-14.6 [facility] Erythrocyte distribution wid th standard deviationOrdered By: Denise Uribe on 07-24-2024 Erythrocyte distribution width standard deviation 56.3 fl High 35.1-43.9 [facility] Ferritinon 07-24-2024 Ferritin [Mass/Vol] 19 ng/mL Low 22-378 [facility] Comment on above: Performed By: #### L 100.0100, L500.4050, L503.6550, L503.0106, L506.1001, L503.6030 ####[facility] [address] [place], [place], [address] Ferritin [Mass/Vol]Ordered B y: Denise Uribe on 07-24-2024 Serum or plasma ferritin measurement (mass/volume) 19 ng/mL Low 22-378 [facility] GFR/1.73 sq M.predicted andrew g non-blacks MDRD (S/P/Bld) [Vol rate/Area]Ordered By: Denise Uribe on 07-24-2024 Glomerular filtration rate (GFR) estimation/1.73 sq m using serum, plasma, or whole b 51 Low >60 [facility] Glucose [Mass/Vol]Ordered By : Denise Uribe on 07-24-2024 Serum glucose measurement (mass/volume) 196 mg/dL High 70-99 [facility] Hematocrit Auto (Bld) [Volum e fraction]Ordered By: Denise Uribe on 07-24-2024 Automated blood hematocrit (percentage) 25.9 % Low 37-47 [facility] Hemoglobin measurementOrdere d By: Denise Uribe on 07-24-2024 Hemoglobin measurement 8.1 g/dL Low 12.0-15.0 [facility] Immature granulocytes/100 WB C Auto (Bld)Ordered By: Denise Uribe on 07-24-2024 Automated immature granulocyte percentage 1.200 % High 0.0-0.9 [facility] Iron (Unsp spec) [Mass/Mass] Ordered By: Denise Uribe on 07-24-2024 Iron measurement (mass/mass) 34 ug/dL Low 50-170 [facility] Iron saturation [Mass fracti on]Ordered By: Deniseandrei Uribe on 07-24-2024 Serum or plasma iron saturation measurement (mass fraction) 8.0 % Low 15.0-55.0 [facility] Iron+Iron Binding Capacityon 07-24-2024 Iron [Mass/Vol] 34 ug/dL Low 50-170 [facility] Comment on above: Performed By: #### L 100.0100, L500.4050, L503.6550, L503.0106, L506.1001, L503.6030 ####[facility] [address] [place], [address] IRON SATURATION 8.0 Low 15.0-55.0 [facility] Comment on above: Performed By: #### L 100.0100, L500.4050, L503.6550, L503.0106, L506.1001, L503.6030 ####[facility] [address] [place], [address] TIBC 449 ug/dL Normal 250-450 [facility] Comment on above: Performed By: #### L 100.0100, L500.4050, L503.6550, L503.0106, L506.1001, L503.6030 ####[facility] [address] [place], [address] UIBC 415 ug/dL Normal 228-428 [facility] Comment on above: Performed By: #### L 100.0100, L500.4050, L503.6550, L503.0106, L506.1001, L503.6030 ####[facility] [address] [place], [address] L503.0106on 07-24-2024 Cobalamin (Vitamin B12) [Mass/Vol] 639 pg/mL Normal 180-914 [facility] Comment on above: Performed By: #### L 100.0100, L500.4050, L503.6550, L503.0106, L506.1001, L503.6030 ####[facility] [address] [place], [address] L506.1001on 07-24-2024 Vitamin D 25-OH 24.4 ng/mL Low 30-100 [facility] Comment on above: Result Comment: Deborah min D StatusDeficiency: <20 ng/mL (50nmol/L)Insufficiency: 20-30 ng/mL (50-75 nmol/L)Sufficiency: 30-100 ng/mL (75-250 nmol/L)Toxicity: >100 ng/mL (>250 nmol/L) Performed By: #### L 100.0100, L500.4050, L503.6550, L503.0106, L506.1001, L503.6030 ####[facility] [address] [place], [address] Lymphocytes Auto (Unsp spec) [#/Vol]Ordered By: Denise Uribe on 07-24-2024 Absolute lymphocyte count 2.18 X10^3/uL 0.83-4.51 [facility] Lymphocytes/100 WBC Auto (Un sp spec)Ordered By: Denise Uribe on 07-24-2024 Automated lymphocyte count as percentage of total leukocytes 19.2 % 19-41 [facility] MCV (RBC) [Entitic vol]Order ed By: Denise Uribe on 07-24-2024 MCV (mean corpuscular volume) determination 88.7 fL 81-99 [facility] Mean corpuscular hemoglobin (MCH) determinationOrdered By: Denise Uribe on 07-24-2024 Mean corpuscular hemoglobin (MCH) determination 27.7 pg 27.0-32.0 [facility] Mean corpuscular hemoglobin concentration (MCHC) determinationOrdered By: Denise Uribe on 07-24-2024 Mean corpuscular hemoglobin concentration (MCHC) determination 31.3 g/dL Low 32-36 [facility] Mean platelet volume determi nationOrdered By: Denise Uribe on 07-24-2024 Mean platelet volume determination 9.3 fl 6.2-12.0 [facility] Monocyte percentageOrdered B y: Denise Uribe on 07-24-2024 Monocyte percentage 7.0 % 0-10 [facility] Neutrophil percentageOrdered By: Denise Uribe on 07-24-2024 Neutrophil percentage 70.0 % 47-70 [facility] No Panel InformationOrdered By: Denise Uribe on 07-24-2024 19 U/L <32 [facility] 415 ug/dL 228-428 [facility] 9.4 % High 4.2-6.3 [facility] Nucleated red blood cell per centageOrdered By: Denise Uribe on 07-24-2024 Nucleated red blood cell percentage 0.2 % 0-5 [facility] Platelet countOrdered By: Jann Uribe on 07-24-2024 Platelet count 541 K/mm3 High 150-450 [facility] Potassium (Unsp spec) [Mass/ Vol]Ordered By: Denise Uribe on 07-24-2024 Potassium measurement (mass/volume) 4.5 mmol/L 3.3-5.1 [facility] RBC Auto (Bld) [#/Vol]Ordere d By: Denise Uribe on 07-24-2024 Automated blood erythrocyte count 2.92 M/mm3 Low 4.2-5.4 [facility] Serum globulin measurementOr dered By: Denise Uribe on 07-24-2024 Serum globulin measurement 3.3 g/dL 2.2-4.2 [facility] Sodium levelOrdered By: Misael Uribe on 07-24-2024 Sodium level 132 mmol/L Low 133-145 [facility] Total proteinOrdered By: Mina Uribe on 07-24-2024 Total protein 7.3 g/dL 5.9-8.4 [facility] Urea nitrogen [Mass/Vol]Orde red By: Denise Uribe on 07-24-2024 Serum or plasma urea nitrogen measurement (mass/volume) 19 mg/dL 4-19 [facility] Vitamin D, 25-hydroxyOrdered By: Denise Uribe on 07-24-2024 Vitamin D, 25-hydroxy 24.4 ng/mL Low 30-100 [facility] White blood cell (WBC) count Ordered By: Denise Uribe on 07-24-2024 White blood cell (WBC) count 11.4 K/mm3 High 4.4-11.0 [facility] Internal Medicine Office Vis iton 07-23-2024 Internal Medicine Office Visit Normal [facility] Basic Metabolic Profile (BMP )on 06-18-2024 BUN/CRE 13.4 RATIO Normal 10-20 [facility] Comment on above: Performed By: #### L 501.5200, L500.2500 ####[facility] [address] [place], [address] CA,Total 9.4 mg/dL Normal 8.5-10.1 [facility] Comment on above: Performed By: #### L 501.5200, L500.2500 ####[facility] [address] [place], [address] Chloride [Moles/Vol] 104 mmol/L Normal 98-107 [facility] Comment on above: Performed By: #### L 501.5200, L500.2500 ####[facility] [address] [place], [address] CO2 [Moles/Vol] 23.0 mmol/L Normal 21.0-32.0 [facility] Comment on above: Performed By: #### L 501.5200, L500.2500 ####[facility] [address] [place], [address] Creatinine [Mass/Vol] 1.19 mg/dL High 0.55-1.02 [facility] Comment on above: Result Comment: The validity of the calculated GFR GFRAA in patients over70 years has not been determined. Clinical correlation isessential. Performed By: #### L 501.5200, L500.2500 ####[facility] [address] [place], [address] ECRCL 39.44 ml/min Normal [facility] Comment on above: Performed By: #### L 501.5200, L500.2500 ####[facility] [address] [place], [address] EST GFR - AA 58 mL/min Low >60 [facility] Comment on above: Result Comment: Afri can Croatian GFR Calc Performed By: #### L 501.5200, L500.2500 ####[facility] [address] [place], [address] GAP 10 Normal 5-15 [facility] Comment on above: Performed By: #### L 501.5200, L500.2500 ####[facility] [address] [place], [address] GFR/1.73 sq M.predicted among non-blacks MDRD (S/P/Bld) [Vol rate/Area] 48 mL/min/{1.73_m2} Low >60 [facility] Comment on above: Result Comment: Non- GFR Calc Performed By: #### L 501.5200, L500.2500 ####[facility] [address] [place], [address] Glucose [Mass/Vol] 145 mg/dL High 74-106 [facility] Comment on above: Result Comment: Fast ing Glucose result greater than or equal to 126 mg/dLsuggests DIABETES MELLITUS per A.D.A. criteria. Performed By: #### L 501.5200, L500.2500 ####[facility] [address] [place], [address] Potassium [Moles/Vol] 4.6 mmol/L Normal 3.5-5.1 [facility] Comment on above: Performed By: #### L 501.5200, L500.2500 ####[facility] [address] [place], [address] Sodium [Moles/Vol] 136 mmol/L Normal 136-145 [facility] Comment on above: Performed By: #### L 501.5200, L500.2500 ####[facility] [address] [place], [address] Urea nitrogen [Mass/Vol] 16 mg/dL Normal 7-18 [facility] Comment on above: Performed By: #### L 501.5200, L500.2500 ####[facility] [address] [place], [address] Bedside Glucoseon 06-18-2024 FINGERSTICK GLU 200 mg/dL High 74-106 [facility] Comment on above: Result Comment: LOURDES GEMENT OF PATIENT CARE PER NURSING PROTOCOL Performed By: #### L 501.080 ####[facility] [address] [place], [address] FINGERSTICK GLU 168 mg/dL High 74-106 [facility] Comment on above: Result Comment: LOURDES GEMENT OF PATIENT CARE PER NURSING PROTOCOL Performed By: #### L 501.080 ####[facility] [address] [place], [address] FINGERSTICK GLU 210 mg/dL High 74-106 [facility] Comment on above: Result Comment: LOURDES GEMENT OF PATIENT CARE PER NURSING PROTOCOL Performed By: #### L 501.080 ####[facility] [address] [place], [address] Blood urea nitrogen (BUN)/cr eatinine ratioOrdered By: Devi Paredes on 06-18-2024 Blood urea nitrogen (BUN)/creatinine ratio 13.4 RATIO 10-20 [facility] Calcium [Mass/Vol]Ordered By : Devi Paredes on 06-18-2024 Serum or plasma calcium measurement (mass/volume) 9.4 mg/dL 8.5-10.1 [facility] Carbon dioxide measurementOr dered By: Devi Paredes on 06-18-2024 Carbon dioxide measurement 23.0 mmol/L 21.0-32.0 [facility] Chloride measurementOrdered By: Devi Paredes on 06-18-2024 Chloride measurement 104 mmol/L 98-107 [facility] Creatinine [Mass/Vol]Ordered By: Devi Paredes on 06-18-2024 Serum or plasma creatinine measurement (mass/volume) 1.19 mg/dL High 0.55-1.02 [facility] Discharge Instructionon 05-23 Discharge Instruction Normal [facility] Estimated glomerular filtrat ion rate (GFR) AmericanOrdered By: Devi Paredes on 06-18-2024 Estimated glomerular filtration rate (GFR) 58 mL/min Low >60 [facility] Estimation of creatinine padma aranceOrdered By: Devi Paredes on 06-18-2024 Estimation of creatinine clearance 39.44 ml/min [facility] Glomerular filtration rate ( GFR) estimationOrdered By: Devi Paredes on 06-18-2024 Glomerular filtration rate (GFR) estimation 48 mL/min Low >60 [facility] Glucose measurementOrdered B y: Devi Paredes on 06-18-2024 Glucose measurement 145 mg/dL High 74-106 [facility] Glucose measurement at bedsi deOrdered By: Devi Paredes on 06-18-2024 Glucose measurement at bedside 200 mg/dL High 74-106 [facility] HH, Hemoglobin AND Hematocri ton 06-18-2024 Hematocrit (Bld) [Volume fraction] 27.3 % Low 37-47 [facility] Comment on above: Performed By: #### L 100.0600 ####[facility] [address] [place], [place], [id number] Hemoglobin (Bld) [Mass/Vol] 8.6 g/dL Low 12.0-15.0 [facility] Comment on above: Performed By: #### L 100.0600 ####[facility] [address] [place], [address] Hematocrit Auto (Bld) [Volum e fraction]Ordered By: Devi Paredes on 06-18-2024 Automated blood hematocrit (percentage) 27.3 % Low 37-47 [facility] Hemoglobin measurementOrdere d By: Devi Paredes on 06-18-2024 Hemoglobin measurement 8.6 g/dL Low 12.0-15.0 [facility] Magnesiumon 06-18-2024 Magnesium [Mass/Vol] 1.8 mg/dL Normal 1.6-2.6 [facility] Comment on above: Performed By: #### L 501.5200, L500.2500 ####[facility] [address] [place], [place], [address] Magnesium measurementOrdered By: Devi Paredes on 06-18-2024 Magnesium measurement 1.8 mg/dL 1.6-2.6 [facility] Potassium measurementOrdered By: Devi Paredes on 06-18-2024 Potassium measurement 4.6 mmol/L 3.5-5.1 [facility] Serum anion gap measurementO rdered By: Devi Paredes on 06-18-2024 Serum anion gap measurement 10 5-15 [facility] Sodium levelOrdered By: Devi Paredes on 06-18-2024 Sodium level 136 mmol/L 136-145 [facility] Urea nitrogen [Mass/Vol]Orde red By: Devi Paredes on 06-18-2024 Serum or plasma urea nitrogen measurement (mass/volume) 16 mg/dL 7-18 [facility] Urine Cultureon 06-18-2024 URC Normal [facility] Comment on above: Performed By: #### M 100.2200 ####[facility] [address] [place], [address] ALP [Catalytic activity/Vol] Ordered By: [facility] Rosalie on 06-17-2024 Serum or plasma alkaline phosphatase measurement 99 U/L 45-117 [facility] ALT [Catalytic activity/Vol] Ordered By: [facility] Rosalie on 06-17-2024 Serum or plasma alanine aminotransferase (ALT) measurement 16 U/L 13-56 [facility] Absolute neutrophil countOrd ered By: [facility] Rosalie on 06-17-2024 Absolute neutrophil count 5.6 X10^3/uL 2.0-7.7 [facility] Albumin [Mass/Vol]Ordered By : [facility] on 06-17-2024 Serum or plasma albumin measurement (mass/volume) 3.1 g/dL Low 3.2-5.0 [facility] Albumin to globulin ratioOrd ered By: [facility] Rosalie on 06-17-2024 Albumin to globulin ratio 0.8 RATIO Low 0.9-2.4 [facility] Basophil percentageOrdered B y: [facility] Rosalie on 06-17-2024 Basophil percentage 0.4 % 0-1 [facility] Bedside Glucoseon 06-17-2024 FINGERSTICK GLU 279 mg/dL High 74-106 [facility] Comment on above: Result Comment: LOURDES GEMENT OF PATIENT CARE PER NURSING PROTOCOL Performed By: #### L 501.080 ####[facility] [address] [place], [address] FINGERSTICK GLU 210 mg/dL High 74-106 [facility] Comment on above: Result Comment: LOURDES GEMENT OF PATIENT CARE PER NURSING PROTOCOL Performed By: #### L 501.080 ####[facility] [address] [place], [address] FINGERSTICK GLU 93 mg/dL Normal 74-106 [facility] Comment on above: Result Comment: LOURDES GEMENT OF PATIENT CARE PER NURSING PROTOCOL Performed By: #### L 501.080 ####[facility] [address] [place], [address] FINGERSTICK GLU 79 mg/dL Normal 74-106 [facility] Comment on above: Result Comment: LOURDES GEMENT OF PATIENT CARE PER NURSING PROTOCOL Performed By: #### L 501.080 ####[facility] [address] [place], [address] FINGERSTICK GLU 125 mg/dL High 74-106 [facility] Comment on above: Result Comment: LOURDES GEMENT OF PATIENT CARE PER NURSING PROTOCOL Performed By: #### L 501.080 ####[facility] [address] [place], [address] FINGERSTICK GLU 117 mg/dL High 74-106 [facility] Comment on above: Result Comment: LOURDES GEMENT OF PATIENT CARE PER NURSING PROTOCOL Performed By: #### L 501.080 ####[facility] [address] [place], [address] Bilirubin, totalOrdered By: Jailyn Wiggins on 06-17-2024 Bilirubin, total 0.30 mg/dL 0.20-1.00 [facility] CBC W/Diff, Automatedon 05-23 MCHC (RBC) [Mass/Vol] 30.0 g/dL Low 32-36 [facility] Comment on above: Performed By: #### L 500.4050, L100.0100 ####[facility] [address] [place], [address] Comprehensive Metabolic Prof ilon 06-17-2024 Albumin [Mass/Vol] 3.1 g/dL Low 3.2-5.0 [facility] Comment on above: Performed By: #### L 500.4050, L100.0100 ####[facility] [address] [place], [address] Albumin/Globulin [Mass ratio] 0.8 {ratio} Low 0.9-2.4 [facility] Comment on above: Performed By: #### L 500.4050, L100.0100 ####[facility] [address] [place], [address] ALK P 99 U/L Normal 45-117 [facility] Comment on above: Performed By: #### L 500.4050, L100.0100 ####[facility] [address] [place], [address] ALT [Catalytic activity/Vol] 16 U/L Normal 13-56 [facility] Comment on above: Performed By: #### L 500.4050, L100.0100 ####[facility] [address] [place], [address] AST [Catalytic activity/Vol] 13 U/L Low 15-37 [facility] Comment on above: Performed By: #### L 500.4050, L100.0100 ####[facility] [address] [place], [address] Bilirubin [Mass/Vol] 0.30 mg/dL Normal 0.20-1.00 [facility] Comment on above: Result Comment: For patients on eltrombopag therapy, use of Dimension [place] TBIL is not recommended. Performed By: #### L 500.4050, L100.0100 ####[facility] [address] [place], [address] BUN/CRE 15.5 RATIO Normal 10-20 [facility] Comment on above: Performed By: #### L 500.4050, L100.0100 ####[facility] [address] [place], [address] CA,Total 8.1 mg/dL Low 8.5-10.1 [facility] Comment on above: Performed By: #### L 500.4050, L100.0100 ####[facility] [address] [place], [address] Chloride [Moles/Vol] 102 mmol/L Normal 98-107 [facility] Comment on above: Performed By: #### L 500.4050, L100.0100 ####[facility] [address] [place], [address] CO2 [Moles/Vol] 23.0 mmol/L Normal 21.0-32.0 [facility] Comment on above: Performed By: #### L 500.4050, L100.0100 ####[facility] [address] [place], [address] Creatinine [Mass/Vol] 1.42 mg/dL High 0.55-1.02 [facility] Comment on above: Result Comment: The validity of the calculated GFR GFRAA in patients over70 years has not been determined. Clinical correlation isessential. Performed By: #### L 500.4050, L100.0100 ####[facility] [address] [place], [address] ECRCL 32.87 ml/min Normal [facility] Comment on above: Performed By: #### L 500.4050, L100.0100 ####[facility] [address] [place], [address] EST GFR - AA 47 mL/min Low >60 [facility] Comment on above: Result Comment: Afri can Croatian GFR Calc Performed By: #### L 500.4050, L100.0100 ####[facility] [address] [place], [address] GAP 9 Normal 5-15 [facility] Comment on above: Performed By: #### L 500.4050, L100.0100 ####[facility] [address] [place], [address] GFR/1.73 sq M.predicted among non-blacks MDRD (S/P/Bld) [Vol rate/Area] 39 mL/min/{1.73_m2} Low >60 [facility] Comment on above: Result Comment: Non- GFR Calc Performed By: #### L 500.4050, L100.0100 ####[facility] [address] [place], [address] Globulin (S) [Mass/Vol] 3.8 g/dL Normal 2.2-4.2 [facility] Comment on above: Performed By: #### L 500.4050, L100.0100 ####[facility] [address] [place], [address] Glucose [Mass/Vol] 132 mg/dL High 74-106 [facility] Comment on above: Result Comment: Fast ing Glucose result greater than or equal to 126 mg/dLsuggests DIABETES MELLITUS per A.D.A. criteria. Performed By: #### L 500.4050, L100.0100 ####[facility] [address] [place], [address] Potassium [Moles/Vol] 4.3 mmol/L Normal 3.5-5.1 [facility] Comment on above: Performed By: #### L 500.4050, L100.0100 ####[facility] [address] [place], [address] Sodium [Moles/Vol] 134 mmol/L Low 136-145 [facility] Comment on above: Performed By: #### L 500.4050, L100.0100 ####[facility] [address] [place], [address] T PROT 6.9 g/dL Normal 6.4-8.2 [facility] Comment on above: Performed By: #### L 500.4050, L100.0100 ####[facility] [address] [place], [address] Urea nitrogen [Mass/Vol] 22 mg/dL High 7-18 [facility] Comment on above: Performed By: #### L 500.4050, L100.0100 ####[facility] [address] [place], [address] Eosinophil percentageOrdered By: White on 06-17-2024 Eosinophil percentage 3.0 % 0-5 [facility] Erythrocyte distribution wid th (RBC) [Ratio]Ordered By: Jaiyln White on 06-17-2024 Erythrocyte distribution width ratio 17.5 % High 11.6-14.6 [facility] Erythrocyte distribution wid th standard deviationOrdered By: White on 06-17-2024 Erythrocyte distribution width standard deviation 58.4 fl High 35.1-43.9 [facility] Immature granulocytes/100 WB C Auto (Bld)Ordered By: White on 06-17-2024 Automated immature granulocyte percentage 0.500 % 0.0-0.9 [facility] Lymphocytes Auto (Unsp spec) [#/Vol]Ordered By: White on 06-17-2024 Absolute lymphocyte count 1.57 X10^3/uL 0.83-4.51 [facility] Lymphocytes/100 WBC Auto (Un sp spec)Ordered By: White on 06-17-2024 Automated lymphocyte count as percentage of total leukocytes 19.6 % 19-41 [facility] MCV (RBC) [Entitic vol]Order ed By: Jailyn White on 06-17-2024 MCV (mean corpuscular volume) determination 92.3 fL 81-99 [facility] Mean corpuscular hemoglobin (MCH) determinationOrdered By: White on 06-17-2024 Mean corpuscular hemoglobin (MCH) determination 27.7 pg 27.0-32.0 [facility] Mean corpuscular hemoglobin concentration (MCHC) determinationOrdered By: White on 06-17-2024 Mean corpuscular hemoglobin concentration (MCHC) determination 30.0 g/dL Low 32-36 [facility] Mean platelet volume determi nationOrdered By: Jailyn White on 06-17-2024 Mean platelet volume determination 8.8 fl 6.2-12.0 [facility] Monocyte percentageOrdered B y: Jailyn White on 06-17-2024 Monocyte percentage 6.6 % 0-10 [facility] Neutrophil percentageOrdered By: Jailyn White on 06-17-2024 Neutrophil percentage 69.9 % 47-70 [facility] No Panel InformationOrdered By: Jailyn Wiggins on 06-17-2024 13 U/L Low 15-37 [facility] Nucleated red blood cell per centageOrdered By: Jailyn Rosalie on 06-17-2024 Nucleated red blood cell percentage 0 % 0-5 [facility] Platelet countOrdered By: Debby Wiggins on 06-17-2024 Platelet count 521 K/mm3 High 150-450 [facility] RBC Auto (Bld) [#/Vol]Ordere d By: Jailyn Rosalie on 06-17-2024 Automated blood erythrocyte count 3.11 M/mm3 Low 4.2-5.4 [facility] RESPIRATORY PANEL MOLECULARo n 06-17-2024 RP PANEL Normal [facility] Comment on above: Performed By: #### M 100.019, M100.638 ####[facility] [address] [place], [place], [id number] Serum globulin measurementOr dered By: Jailyn Wiggins on 06-17-2024 Serum globulin measurement 3.8 g/dL 2.2-4.2 [facility] Total proteinOrdered By: Gutierrez Wiggins on 06-17-2024 Total protein 6.9 g/dL 6.4-8.2 [facility] White blood cell (WBC) count Ordered By: Jailyn Rosalie on 06-17-2024 White blood cell (WBC) count 8.0 K/mm3 4.4-11.0 [facility] 12 Lead EKGon 06-16-2024 12 Lead EKG Normal [facility] Bacteria LM.HPF (Urine sed) [#/Area]Ordered By: Safia Lares on 06-16-2024 Urine sediment bacteria count by microscopy (number/high power field) 1+ /hpf None Seen [facility] Basic Metabolic Profile (BMP )on 06-16-2024 BUN/CRE 14.4 RATIO Normal 10-20 [facility] Comment on above: Order Comment: 'TROP ' Serial specimen #1, #2 or #3: 1 Performed By: #### L 500.2500, L501.4020, L100.0100 ####[facility] [address] [place], [address] CA,Total 8.8 mg/dL Normal 8.5-10.1 [facility] Comment on above: Order Comment: 'TROP ' Serial specimen #1, #2 or #3: 1 Performed By: #### L 500.2500, L501.4020, L100.0100 ####[facility] [address] [place], [address] Chloride [Moles/Vol] 96 mmol/L Low 98-107 [facility] Comment on above: Order Comment: 'TROP ' Serial specimen #1, #2 or #3: 1 Performed By: #### L 500.2500, L501.4020, L100.0100 ####[facility] [address] [place], [address] CO2 [Moles/Vol] 27.0 mmol/L Normal 21.0-32.0 [facility] Comment on above: Order Comment: 'TROP ' Serial specimen #1, #2 or #3: 1 Performed By: #### L 500.2500, L501.4020, L100.0100 ####[facility] [address] [place], [address] Creatinine [Mass/Vol] 2.15 mg/dL High 0.55-1.02 [facility] Comment on above: Order Comment: 'TROP ' Serial specimen #1, #2 or #3: 1 Result Comment: The validity of the calculated GFR GFRAA in patients over70 years has not been determined. Clinical correlation isessential. Performed By: #### L 500.2500, L501.4020, L100.0100 ####[facility] [address] [place], [address] ECRCL 21.85 ml/min Normal [facility] Comment on above: Order Comment: 'TROP ' Serial specimen #1, #2 or #3: 1 Performed By: #### L 500.2500, L501.4020, L100.0100 ####[facility] [address] [place], [address] EST GFR - AA 29 mL/min Low >60 [facility] Comment on above: Order Comment: 'TROP ' Serial specimen #1, #2 or #3: 1 Result Comment: Afri can Croatian GFR Calc Performed By: #### L 500.2500, L501.4020, L100.0100 ####[facility] [address] [place], [address] GAP 9 Normal 5-15 [facility] Comment on above: Order Comment: 'TROP ' Serial specimen #1, #2 or #3: 1 Performed By: #### L 500.2500, L501.4020, L100.0100 ####[facility] [address] [place], [address] GFR/1.73 sq M.predicted among non-blacks MDRD (S/P/Bld) [Vol rate/Area] 24 mL/min/{1.73_m2} Low >60 [facility] Comment on above: Order Comment: 'TROP ' Serial specimen #1, #2 or #3: 1 Result Comment: Non- GFR Calc Performed By: #### L 500.2500, L501.4020, L100.0100 ####[facility] [address] [place], [address] Glucose [Mass/Vol] 103 mg/dL Normal 74-106 [facility] Comment on above: Order Comment: 'TROP ' Serial specimen #1, #2 or #3: 1 Result Comment: Fast ing Glucose result from 100 to 125 mg/dLsuggests IMPAIRED HOMEOSTASIS per A.D.A. criteria. Performed By: #### L 500.2500, L501.4020, L100.0100 ####[facility] [address] [place], [address] Potassium [Moles/Vol] 4.4 mmol/L Normal 3.5-5.1 [facility] Comment on above: Order Comment: 'TROP ' Serial specimen #1, #2 or #3: 1 Performed By: #### L 500.2500, L501.4020, L100.0100 ####[facility] [address] [place], [address] Sodium [Moles/Vol] 132 mmol/L Low 136-145 [facility] Comment on above: Order Comment: 'TROP ' Serial specimen #1, #2 or #3: 1 Performed By: #### L 500.2500, L501.4020, L100.0100 ####[facility] [address] [place], [address] Urea nitrogen [Mass/Vol] 31 mg/dL High 7-18 [facility] Comment on above: Order Comment: 'TROP ' Serial specimen #1, #2 or #3: 1 Performed By: #### L 500.2500, L501.4020, L100.0100 ####[facility] [address] [place], [address] Bedside Glucoseon 06-16-2024 FINGERSTICK GLU 118 mg/dL High 74-106 [facility] Comment on above: Result Comment: LOURDES GORMAN OF PATIENT CARE PER NURSING PROTOCOL Performed By: #### L 501.080 ####[facility] [address] [place], [address] Bilirubin Test strip Ql (U)O rdered By: Safia Lares on 06-16-2024 Urine total bilirubin detection by test strip 1 mg/dL High Negative [facility] CBC W/Diff, Automatedon 05-23 Absolute Lymph 1.85 X10 3/uL Normal 0.83-4.51 [facility] Comment on above: Performed By: #### L 500.2500, L501.4020, L100.0100 ####[facility] [address] [place], [address] Absolute Neut 8.2 X10 3/uL High 2.0-7.7 [facility] Comment on above: Performed By: #### L 500.2500, L501.4020, L100.0100 ####[facility] [address] [place], [address] Basophils/100 WBC (Bld) 0.3 % Normal 0-1 [facility] Comment on above: Performed By: #### L 500.2500, L501.4020, L100.0100 ####[facility] [address] [place], [address] Eosinophils/100 WBC (Bld) 1.9 % Normal 0-5 [facility] Comment on above: Performed By: #### L 500.2500, L501.4020, L100.0100 ####[facility] [address] [place], [address] Erythrocyte distribution width (RBC) [Ratio] 17.9 % High 11.6-14.6 [facility] Comment on above: Performed By: #### L 500.2500, L501.4020, L100.0100 ####[facility] [address] [place], [address] Hematocrit (Bld) [Volume fraction] 28.1 % Low 37-47 [facility] Comment on above: Performed By: #### L 500.2500, L501.4020, L100.0100 ####[facility] [address] [place], [address] Hemoglobin (Bld) [Mass/Vol] 9.1 g/dL Low 12.0-15.0 [facility] Comment on above: Performed By: #### L 500.2500, L501.4020, L100.0100 ####[facility] [address] [place], [address] IG% 0.600 Normal 0.0-0.9 [facility] Comment on above: Result Comment: IG% - Immature Granulocytes (promyelocytes, myelocytes andmetamyelocytes) > 1% indicates that a LEFT SHIFT is Present. Performed By: #### L 500.2500, L501.4020, L100.0100 ####[facility] [address] [place], [address] Lymphocytes/100 WBC (Bld) 16.5 % Low 19-41 [facility] Comment on above: Performed By: #### L 500.2500, L501.4020, L100.0100 ####[facility] [address] [place], [address] MCH (RBC) [Entitic mass] 29.0 pg Normal 27.0-32.0 [facility] Comment on above: Performed By: #### L 500.2500, L501.4020, L100.0100 ####[facility] [address] [place], [address] MCHC (RBC) [Mass/Vol] 32.4 g/dL Normal 32-36 [facility] Comment on above: Performed By: #### L 500.2500, L501.4020, L100.0100 ####[facility] [address] [place], [address] MCV (RBC) [Entitic vol] 89.5 fL Normal 81-99 [facility] Comment on above: Performed By: #### L 500.2500, L501.4020, L100.0100 ####[facility] [address] [place], [address] Monocytes/100 WBC (Bld) 7.2 % Normal 0-10 [facility] Comment on above: Performed By: #### L 500.2500, L501.4020, L100.0100 ####[facility] [address] [place], [address] Neutrophils/100 WBC (Bld) 73.5 % High 47-70 [facility] Comment on above: Performed By: #### L 500.2500, L501.4020, L100.0100 ####[facility] [address] [place], [address] Nucleated RBC (Bld) [#/Vol] 0 10*3/uL Normal 0-5 [facility] Comment on above: Performed By: #### L 500.2500, L501.4020, L100.0100 ####[facility] [address] [place], [address] Platelet mean volume (Bld) [Entitic vol] 8.6 fL Normal 6.2-12.0 [facility] Comment on above: Performed By: #### L 500.2500, L501.4020, L100.0100 ####[facility] [address] [place], [address] Platelets (Bld) [#/Vol] 558 10*3/uL High 150-450 [facility] Comment on above: Performed By: #### L 500.2500, L501.4020, L100.0100 ####[facility] [address] [place], [address] RBC (Bld) [#/Vol] 3.14 10*6/uL Low 4.2-5.4 [facility] Comment on above: Performed By: #### L 500.2500, L501.4020, L100.0100 ####[facility] [address] [place], [address] RDW SD 58.3 fl High 35.1-43.9 [facility] Comment on above: Performed By: #### L 500.2500, L501.4020, L100.0100 ####[facility] [address] [place], [address] WBC (Bld) [#/Vol] 11.2 10*3/uL High 4.4-11.0 [facility] Comment on above: Performed By: #### L 500.2500, L501.4020, L100.0100 ####[facility] [address] [place], [place], [address] Chest PA and Lateralon 06-16 Chest PA and Lateral Normal [facility] Clarity (U)Ordered By: Safia Lares on 06-16-2024 Urine clarity Cloudy Clear [facility] Color (U)Ordered By: Safia frias on 06-16-2024 Urine color determination Yellow Yellow [facility] Creatinine (U) [Mass/Vol]Ord ered By: Jailyn White on 06-16-2024 Urine creatinine measurement (mass/volume) 68.50 mg/dL NO RANGE EST. [facility] Creatinine, Urine (random)on 06-16-2024 UR CREAT 68.50 mg/dL Normal NO RANGE EST. [facility] Comment on above: Performed By: #### L 501.1200, L501.5500 ####[facility] [address] [place], [place], [address] Emergency Department Summary on 06-16-2024 Emergency Department Summary Normal [facility] Epithelial cells.squamous LM Ql (Urine sed)Ordered By: Safia Lares on 06-16-2024 Squamous epithelial cells detection in urine sediment by light microscopy 5-10 SEEN /hpf 5-10 [facility] Fine Granular Casts LM.LPF ( Urine sed) [#/Area]Ordered By: Safia Lares on 06-16-2024 Urine sediment fine granular cast count by microscopy (number/low power field) 5-10 SEEN /lpf 0-5 [facility] H AND P Exam - Hospitaliston 06-16-2024 H&P Exam - Hospitalist Normal [facility] L501.4020on 06-16-2024 TROPONIN-I HS 12 pg/mL Normal 3.0-54.0 [facility] Comment on above: Order Comment: 'TROP ' Serial specimen #1, #2 or #3: 1 Result Comment: Adam richardson Note: New Test Units and Gender Specific Reference Ranges. For more information see Policy Stat Procedure [place] High Sensitivity Troponin (TNIH) and attachments. Performed By: #### L 500.2500, L501.4020, L100.0100 ####[facility] [address] [place], [address] Leukocyte esterase Test stri p Ql (U)Ordered By: Safia Lares on 06-16-2024 Urine leukocyte esterase detection by dipstick 500 /ul High Negative [facility] M100.019on 06-16-2024 M100.019 Negative Normal [facility] Comment on above: Performed By: #### M 100.019, M100.638 ####[facility] [address] [place], [address] Magnesiumon 06-16-2024 Magnesium [Mass/Vol] 1.4 mg/dL Low 1.6-2.6 [facility] Comment on above: Order Comment: Comme nts: May add to ED labsComments: may add to ED labs Performed By: #### L 501.5200, L509.7000, L501.2300 ####[facility] [address] [place], [address] Microscopic analysis of urin e for red blood cells (RBC)Ordered By: Safia Lares on 06-16-2024 Microscopic analysis of urine for red blood cells (RBC) 0-5 SEEN /hpf 0-5 [facility] Mucus LM Ql (Urine sed)Order ed By: Safia Lares on 06-16-2024 Mucus detection in urine sediment by light microscopy 0 SEEN /hpf [facility] Phosphoruson 06-16-2024 Phosphate [Mass/Vol] 4.9 mg/dL Normal 2.5-4.9 [facility] Comment on above: Order Comment: Comme nts: May add to ED labsComments: may add to ED labs Performed By: #### L 501.5200, L509.7000, L501.2300 ####[facility] [address] [place], [address] Phosphorus measurementOrdere d By: Jailyn Wiggins on 06-16-2024 Phosphorus measurement 4.9 mg/dL 2.5-4.9 [facility] Procalcitoninon 06-16-2024 Procalcitonin 0.24 ng/mL High 0.00-0.09 [facility] Comment on above: Result Comment: A pr ocalcitonin (PCT) level above 2.0 ng/mL on the first day of ICU admission is associated with a high risk for progression to severe sepsis and/or septic shock. A PCT level below 0.5 ng/mL on the first day of ICU admission is associated with a low risk for progression to severe and/or septic shock. Note: Concentrations <0.5 ng/mL do not exclude an infection on account of localized infections (without systemic signs) which can be associated with such low concentrations, or a systemic infection in its initial stages (<6 hours). Furthermore, increased procalcitonin can occur without infection. PCT concentrations between 0.5 and 2.0 ng/mL should be interpreted taking into account the patient's history. It is recommended to retest PCT within 6-24 hours if any concentrations <2 ng/mL are obtained. Performed By: #### L 501.5200, L509.7000, L501.2300 ####[facility] [address] [place], [place], [address] Procalcitonin [Mass/Vol]Orde red By: Jailyn Wiggins on 06-16-2024 Serum procalcitonin measurement 0.24 ng/mL High 0.00-0.09 [facility] Protein Test strip Ql (U)Ord ered By: Safia Lares on 06-16-2024 Urine protein assay by test strip, semi-quantitative 30 mg/dl High Negative [facility] Sodium urOrdered By: Jailyn Wiggins on 06-16-2024 Sodium ur 48 mmol/L Not Establ. [facility] Specific gravity (U) [Rel de nsity]Ordered By: Safia Lares on 06-16-2024 Urine specific gravity measurement 1.005 1.002-1.03 0 [facility] Troponin IOrdered By: Safia samson on 06-16-2024 Troponin I 12 pg/mL 3.0-54.0 [facility] Urinalysis, Completeon 06-16 BACTERIA 1+ /hpf Normal None Seen [facility] Comment on above: Order Comment: CLEAN CATCH Performed By: #### L 400.0001 ####[facility] [address] [place], [address] CAST,FINE GRAN 5-10 SEEN Normal 0-5 [facility] Comment on above: Order Comment: CLEAN CATCH Performed By: #### L 400.0001 ####[facility] [address] [place], [address] EPI,SQUAMOUS 5-10 SEEN Normal 5-10 [facility] Comment on above: Order Comment: CLEAN CATCH Performed By: #### L 400.0001 ####[facility] [address] [place], [address] RBC 0-5 SEEN Normal 0-5 [facility] Comment on above: Order Comment: CLEAN CATCH Performed By: #### L 400.0001 ####[facility] [address] [place], [address] WBC 10-25 SEEN Normal 0-5 [facility] Comment on above: Order Comment: CLEAN CATCH Performed By: #### L 400.0001 ####[facility] [address] [place], [address] Mucus Ql (Urine sed) 0 SEEN Normal [facility] Comment on above: Order Comment: CLEAN CATCH Performed By: #### L 400.0001 ####[facility] [address] [place], [address] Urine Sodiumon 06-16-2024 Sodium (U) [Moles/Vol] 48 mmol/L Normal Not Establ. [facility] Comment on above: Performed By: #### L 501.1200, L501.5500 ####[facility] [address] [place], [address] Urine blood detectionOrdered By: Safia Lares on 01-26-2025 Urine blood detection 10 /ul High Negative [facility] Urine cultureOrdered By: Suzanne Lares on 06-16-2024 Urine culture Staphylococcus epidermidis Abnormal [facility] Urine glucose detectionOrder ed By: Safia Lares on 06-16-2024 Urine glucose detection Normal mg/dl Normal [facility] Urine ketones detection by t est stripOrdered By: Safia Lares on 06-16-2024 Urine ketones detection by test strip Negative Negative [facility] Valproate levelOrdered By: Vanessa Lares on 06-16-2024 Valproate level 21 ug/mL Low 50-100 [facility] Valproic Acid (Depakene) Lev gerardo 06-16-2024 VALPROIC ACID 21 ug/mL Low 50-100 [facility] Comment on above: Performed By: #### L 501.8100 ####[facility] [address] [place], [place], [address] White blood cell countOrdere d By: Safia Lares on 06-16-2024 White blood cell count 10-25 SEEN /hpf 0-5 [facility] pH (U)Ordered By: Safia beverly on 06-16-2024 Urine pH 7.0 5.0 - 8.0 [facility] Absolute neutrophil countOrd ered By: Harry Iniguez on 05-22-2024 Absolute neutrophil count 5.2 X10^3/uL 2.0-7.7 [facility] Basic Metabolic Profile (BMP )on 05-22-2024 BUN/CRE 10.8 RATIO Normal 10-20 [facility] Comment on above: Performed By: #### L 100.0100, L500.2500 ####[facility] [address] [place], [address] CA,Total 7.9 mg/dL Low 8.5-10.1 [facility] Comment on above: Performed By: #### L 100.0100, L500.2500 ####[facility] [address] [place], [address] Chloride [Moles/Vol] 110 mmol/L High 98-107 [facility] Comment on above: Performed By: #### L 100.0100, L500.2500 ####[facility] [address] [place], [address] CO2 [Moles/Vol] 21.0 mmol/L Normal 21.0-32.0 [facility] Comment on above: Performed By: #### L 100.0100, L500.2500 ####[facility] [address] [place], [address] Creatinine [Mass/Vol] 1.02 mg/dL Normal 0.55-1.02 [facility] Comment on above: Result Comment: The validity of the calculated GFR GFRAA in patients over70 years has not been determined. Clinical correlation isessential. Performed By: #### L 100.0100, L500.2500 ####[facility] [address] [place], [address] ECRCL 46.18 ml/min Normal [facility] Comment on above: Performed By: #### L 100.0100, L500.2500 ####[facility] [address] [place], [address] EST GFR - AA 69 mL/min Normal >60 [facility] Comment on above: Result Comment: Afri can [place]ian GFR Calc Performed By: #### L 100.0100, L500.2500 ####[facility] [address] [place], [address] GAP 7 Normal 5-15 [facility] Comment on above: Performed By: #### L 100.0100, L500.2500 ####[facility] [address] [place], [address] GFR/1.73 sq M.predicted among non-blacks MDRD (S/P/Bld) [Vol rate/Area] 57 mL/min/{1.73_m2} Low >60 [facility] Comment on above: Result Comment: Non- GFR Calc Performed By: #### L 100.0100, L500.2500 ####[facility] [address] [place], [address] Glucose [Mass/Vol] 138 mg/dL High 74-106 [facility] Comment on above: Result Comment: Fast ing Glucose result greater than or equal to 126 mg/dLsuggests DIABETES MELLITUS per A.D.A. criteria. Performed By: #### L 100.0100, L500.2500 ####[facility] [address] [place], [address] Potassium [Moles/Vol] 3.6 mmol/L Normal 3.5-5.1 [facility] Comment on above: Performed By: #### L 100.0100, L500.2500 ####[facility] [address] [place], [address] Sodium [Moles/Vol] 138 mmol/L Normal 136-145 [facility] Comment on above: Performed By: #### L 100.0100, L500.2500 ####[facility] [address] [place], [address] Urea nitrogen [Mass/Vol] 11 mg/dL Normal 7-18 [facility] Comment on above: Performed By: #### L 100.0100, L500.2500 ####[facility] [address] [place], [address] Basophil percentageOrdered B y: Harry Iniguez on 05-22-2024 Basophil percentage 0.5 % 0-1 [facility] Blood urea nitrogen (BUN)/cr eatinine ratioOrdered By: Harry Iniguez on 05-22-2024 Blood urea nitrogen (BUN)/creatinine ratio 10.8 RATIO 10-20 [facility] CBC W/Diff, Automatedon 01-0 SMEAR COMMENT SCANNED Normal [facility] Comment on above: Performed By: #### L 100.0100, L500.2500 ####[facility] [address] [place], [address] Calcium [Mass/Vol]Ordered By : Harry Iniguez on 05-22-2024 Serum or plasma calcium measurement (mass/volume) 7.9 mg/dL Low 8.5-10.1 [facility] Carbon dioxide measurementOr dered By: Harry Iniguez on 05-22-2024 Carbon dioxide measurement 21.0 mmol/L 21.0-32.0 [facility] Chloride measurementOrdered By: Harry Iniguez on 05-22-2024 Chloride measurement 110 mmol/L High 98-107 [facility] Creatinine [Mass/Vol]Ordered By: Harry Iniguez on 05-22-2024 Serum or plasma creatinine measurement (mass/volume) 1.02 mg/dL 0.55-1.02 [facility] Discharge Instructionon 0 Discharge Instruction Normal [facility] Eosinophil percentageOrdered By: Harry Iniguez on 05-22-2024 Eosinophil percentage 1.5 % 0-5 [facility] Erythrocyte distribution wid th (RBC) [Ratio]Ordered By: Harry Iniguez on 05-22-2024 Erythrocyte distribution width ratio 16.5 % High 11.6-14.6 [facility] Erythrocyte distribution wid th standard deviationOrdered By: Harry Iniguez on 05-22-2024 Erythrocyte distribution width standard deviation 54.5 fl High 35.1-43.9 [facility] Estimated glomerular filtrat ion rate (GFR) AmericanOrdered By: Harry Iniguez on 05-22-2024 Estimated glomerular filtration rate (GFR) 69 mL/min >60 [facility] Estimation of creatinine padma aranceOrdered By: Harry Iniguez on 05-22-2024 Estimation of creatinine clearance 46.18 ml/min [facility] Glomerular filtration rate ( GFR) estimationOrdered By: Harry Iniguez on 05-22-2024 Glomerular filtration rate (GFR) estimation 57 mL/min Low >60 [facility] Glucose measurementOrdered B y: Harry Iniguez on 05-22-2024 Glucose measurement 138 mg/dL High 74-106 [facility] Hematocrit Auto (Bld) [Volum e fraction]Ordered By: Harry Iniguez on 05-22-2024 Automated blood hematocrit (percentage) 23.6 % Low 37-47 [facility] Hemoglobin measurementOrdere d By: Harry Iniguez on 05-22-2024 Hemoglobin measurement 7.6 g/dL Low 12.0-15.0 [facility] Immature granulocytes/100 WB C Auto (Bld)Ordered By: Harry Iniguez on 05-22-2024 Automated immature granulocyte percentage 6.500 % High 0.0-0.9 [facility] Lymphocytes Auto (Unsp spec) [#/Vol]Ordered By: Harry Iniguez on 05-22-2024 Absolute lymphocyte count 2.08 X10^3/uL 0.83-4.51 [facility] Lymphocytes/100 WBC Auto (Un sp spec)Ordered By: Harry Iniguze on 05-22-2024 Automated lymphocyte count as percentage of total leukocytes 24.3 % 19-41 [facility] MCV (RBC) [Entitic vol]Order ed By: Harry Iniguez on 05-22-2024 MCV (mean corpuscular volume) determination 90.8 fL 81-99 [facility] Manual differential comment Dwayne (Bld) [Interp]Ordered By: Harry Iniguez on 05-22-2024 Blood manual differential comment interpretation (narrative result) SCANNED [facility] Mean corpuscular hemoglobin (MCH) determinationOrdered By: Harry Iniguez on 05-22-2024 Mean corpuscular hemoglobin (MCH) determination 29.2 pg 27.0-32.0 [facility] Mean corpuscular hemoglobin concentration (MCHC) determinationOrdered By: Harry Iniguez on 05-22-2024 Mean corpuscular hemoglobin concentration (MCHC) determination 32.2 g/dL 32-36 [facility] Mean platelet volume determi nationOrdered By: Harry Iniguez on 05-22-2024 Mean platelet volume determination 9.3 fl 6.2-12.0 [facility] Monocyte percentageOrdered B y: Harry Iniguez on 05-22-2024 Monocyte percentage 6.8 % 0-10 [facility] Neutrophil percentageOrdered By: Harry Iniguez on 05-22-2024 Neutrophil percentage 60.4 % 47-70 [facility] Nucleated red blood cell per centageOrdered By: Harry Iniguez on 05-22-2024 Nucleated red blood cell percentage 0.4 % 0-5 [facility] Platelet countOrdered By: Shoshana Iniguez on 05-22-2024 Platelet count 441 K/mm3 150-450 [facility] Potassium measurementOrdered By: Harry Iniguez on 05-22-2024 Potassium measurement 3.6 mmol/L 3.5-5.1 [facility] RBC Auto (Bld) [#/Vol]Ordere d By: Harry Iniguez on 05-22-2024 Automated blood erythrocyte count 2.60 M/mm3 Low 4.2-5.4 [facility] Serum anion gap measurementO rdered By: Harry Iinguez on 05-22-2024 Serum anion gap measurement 7 5-15 [facility] Sodium levelOrdered By: Beny Iniguez on 05-22-2024 Sodium level 138 mmol/L 136-145 [facility] Urea nitrogen [Mass/Vol]Orde red By: Harry Iniguez on 05-22-2024 Serum or plasma urea nitrogen measurement (mass/volume) 11 mg/dL 7-18 [facility] White blood cell (WBC) count Ordered By: Harry Iniguez on 05-22-2024 White blood cell (WBC) count 8.6 K/mm3 4.4-11.0 [facility] ALP [Catalytic activity/Vol] Ordered By: Jailyn Wiggins on 05-21-2024 Serum or plasma alkaline phosphatase measurement 98 U/L 45-117 [facility] ALT [Catalytic activity/Vol] Ordered By: Jailyn Rosalie on 05-21-2024 Serum or plasma alanine aminotransferase (ALT) measurement 19 U/L 13-56 [facility] Abdomen Single View (Portabl e)on 05-21-2024 Abdomen Single View (Portable) Normal [facility] Albumin [Mass/Vol]Ordered By : Jailyn Rosalie on 05-21-2024 Serum or plasma albumin measurement (mass/volume) 2.1 g/dL Low 3.2-5.0 [facility] Albumin to globulin ratioOrd ered By: on 05-21-2024 Albumin to globulin ratio 0.6 RATIO Low 0.9-2.4 [facility] Bilirubin, totalOrdered By: on 05-21-2024 Bilirubin, total 0.20 mg/dL 0.20-1.00 [facility] CBC W/Diff, Automatedon 04-23 Absolute Lymph 1.40 X10 3/uL Normal 0.83-4.51 [facility] Comment on above: Performed By: #### L 500.4050, L100.0100 ####[facility] [address] [place], [address] Absolute Neut 4.4 X10 3/uL Normal 2.0-7.7 [facility] Comment on above: Performed By: #### L 500.4050, L100.0100 ####[facility] [address] [place], [address] Basophils/100 WBC (Bld) 0.9 % Normal 0-1 [facility] Comment on above: Performed By: #### L 500.4050, L100.0100 ####[facility] [address] [place], [address] Eosinophils/100 WBC (Bld) 2.1 % Normal 0-5 [facility] Comment on above: Performed By: #### L 500.4050, L100.0100 ####[facility] [address] [place], [address] Erythrocyte distribution width (RBC) [Ratio] 16.4 % High 11.6-14.6 [facility] Comment on above: Performed By: #### L 500.4050, L100.0100 ####[facility] [address] [place], [address] Hematocrit (Bld) [Volume fraction] 23.8 % Low 37-47 [facility] Comment on above: Performed By: #### L 500.4050, L100.0100 ####[facility] [address] [place], [address] Hemoglobin (Bld) [Mass/Vol] 7.5 g/dL Low 12.0-15.0 [facility] Comment on above: Performed By: #### L 500.4050, L100.0100 ####[facility] [address] [place], [address] IG% 4.800 High 0.0-0.9 [facility] Comment on above: Result Comment: IG% - Immature Granulocytes (promyelocytes, myelocytes andmetamyelocytes) > 1% indicates that a LEFT SHIFT is Present. Performed By: #### L 500.4050, L100.0100 ####[facility] [address] [place], [address] Lymphocytes/100 WBC (Bld) 20.8 % Normal 19-41 [facility] Comment on above: Performed By: #### L 500.4050, L100.0100 ####[facility] [address] [place], [address] MCH (RBC) [Entitic mass] 29.0 pg Normal 27.0-32.0 [facility] Comment on above: Performed By: #### L 500.4050, L100.0100 ####[facility] [address] [place], [address] MCHC (RBC) [Mass/Vol] 31.5 g/dL Low 32-36 [facility] Comment on above: Performed By: #### L 500.4050, L100.0100 ####[facility] [address] [place], [address] MCV (RBC) [Entitic vol] 91.9 fL Normal 81-99 [facility] Comment on above: Performed By: #### L 500.4050, L100.0100 ####[facility] [address] [place], [address] Monocytes/100 WBC (Bld) 6.1 % Normal 0-10 [facility] Comment on above: Performed By: #### L 500.4050, L100.0100 ####[facility] [address] [place], [address] Neutrophils/100 WBC (Bld) 65.3 % Normal 47-70 [facility] Comment on above: Performed By: #### L 500.4050, L100.0100 ####[facility] [address] [place], [address] Nucleated RBC (Bld) [#/Vol] 0 10*3/uL Normal 0-5 [facility] Comment on above: Performed By: #### L 500.4050, L100.0100 ####[facility] [address] [place], [address] Platelet mean volume (Bld) [Entitic vol] 9.1 fL Normal 6.2-12.0 [facility] Comment on above: Performed By: #### L 500.4050, L100.0100 ####[facility] [address] [place], [address] Platelets (Bld) [#/Vol] 376 10*3/uL Normal 150-450 [facility] Comment on above: Performed By: #### L 500.4050, L100.0100 ####[facility] [address] [place], [address] RBC (Bld) [#/Vol] 2.59 10*6/uL Low 4.2-5.4 [facility] Comment on above: Performed By: #### L 500.4050, L100.0100 ####[facility] [address] [place], [address] RDW SD 55.5 fl High 35.1-43.9 [facility] Comment on above: Performed By: #### L 500.4050, L100.0100 ####[facility] [address] [place], [address] WBC (Bld) [#/Vol] 6.7 10*3/uL Normal 4.4-11.0 [facility] Comment on above: Performed By: #### L 500.4050, L100.0100 ####[facility] [address] [place], [address] Comprehensive Metabolic Prof ilon 05-21-2024 Albumin [Mass/Vol] 2.1 g/dL Low 3.2-5.0 [facility] Comment on above: Performed By: #### L 500.4050, L100.0100 ####[facility] [address] [place], [address] Albumin/Globulin [Mass ratio] 0.6 {ratio} Low 0.9-2.4 [facility] Comment on above: Performed By: #### L 500.4050, L100.0100 ####[facility] [address] [place], [address] ALK P 98 U/L Normal 45-117 [facility] Comment on above: Performed By: #### L 500.4050, L100.0100 ####[facility] [address] [place], [address] ALT [Catalytic activity/Vol] 19 U/L Normal 13-56 [facility] Comment on above: Performed By: #### L 500.4050, L100.0100 ####[facility] [address] [place], [address] AST [Catalytic activity/Vol] 21 U/L Normal 15-37 [facility] Comment on above: Result Comment: Slig ht Hemolysis, Result may be falsely increased. Performed By: #### L 500.4050, L100.0100 ####[facility] [address] [place], [address] Bilirubin [Mass/Vol] 0.20 mg/dL Normal 0.20-1.00 [facility] Comment on above: Result Comment: For patients on eltrombopag therapy, use of Dimension [place] TBIL is not recommended. Performed By: #### L 500.4050, L100.0100 ####[facility] [address] [place], [address] BUN/CRE 17.0 RATIO Normal 10-20 [facility] Comment on above: Performed By: #### L 500.4050, L100.0100 ####[facility] [address] [place], [address] CA,Total 8.1 mg/dL Low 8.5-10.1 [facility] Comment on above: Performed By: #### L 500.4050, L100.0100 ####[facility] [address] [place], [address] Chloride [Moles/Vol] 110 mmol/L High 98-107 [facility] Comment on above: Performed By: #### L 500.4050, L100.0100 ####[facility] [address] [place], [address] CO2 [Moles/Vol] 23.0 mmol/L Normal 21.0-32.0 [facility] Comment on above: Performed By: #### L 500.4050, L100.0100 ####[facility] [address] [place], [address] Creatinine [Mass/Vol] 1.00 mg/dL Normal 0.55-1.02 [facility] Comment on above: Result Comment: The validity of the calculated GFR GFRAA in patients over70 years has not been determined. Clinical correlation isessential. Performed By: #### L 500.4050, L100.0100 ####[facility] [address] [place], [address] ECRCL 47.11 ml/min Normal [facility] Comment on above: Performed By: #### L 500.4050, L100.0100 ####[facility] [address] [place], [address] EST GFR - AA 71 mL/min Normal >60 [facility] Comment on above: Result Comment: Afri can Croatian GFR Calc Performed By: #### L 500.4050, L100.0100 ####[facility] [address] [place], [address] GAP 6 Normal 5-15 [facility] Comment on above: Performed By: #### L 500.4050, L100.0100 ####[facility] [address] [place], [address] GFR/1.73 sq M.predicted among non-blacks MDRD (S/P/Bld) [Vol rate/Area] 59 mL/min/{1.73_m2} Low >60 [facility] Comment on above: Result Comment: Non- GFR Calc Performed By: #### L 500.4050, L100.0100 ####[facility] [address] [place], [address] Globulin (S) [Mass/Vol] 3.7 g/dL Normal 2.2-4.2 [facility] Comment on above: Performed By: #### L 500.4050, L100.0100 ####[facility] [address] [place], [address] Glucose [Mass/Vol] 86 mg/dL Normal 74-106 [facility] Comment on above: Performed By: #### L 500.4050, L100.0100 ####[facility] [address] [place], [address] Potassium [Moles/Vol] 3.9 mmol/L Normal 3.5-5.1 [facility] Comment on above: Result Comment: Slig ht Hemolysis, Result may be falsely increased. Performed By: #### L 500.4050, L100.0100 ####[facility] [address] [place], [address] Sodium [Moles/Vol] 139 mmol/L Normal 136-145 [facility] Comment on above: Performed By: #### L 500.4050, L100.0100 ####[facility] [address] [place], [address] T PROT 5.8 g/dL Low 6.4-8.2 [facility] Comment on above: Performed By: #### L 500.4050, L100.0100 ####[facility] [address] [place], [address] Urea nitrogen [Mass/Vol] 17 mg/dL Normal 7-18 [facility] Comment on above: Performed By: #### L 500.4050, L100.0100 ####[facility] [address] [place], [address] Ferritinon 05-21-2024 Ferritin [Mass/Vol] 46 ng/mL Normal 8- [facility] Comment on above: Performed By: #### L 503.6550, L503.6030 ####[facility] [address] [place], [address] Ferritin measurementOrdered By: aHrry Iniguez on 05-21-2024 Ferritin measurement 46 ng/mL 8- [facility] HH, Hemoglobin AND Hematocri ton 05-21-2024 Hematocrit (Bld) [Volume fraction] 29.2 % Low 37-47 [facility] Comment on above: Performed By: #### L 100.0600 ####[facility] [address] [place], [place], [address] Hemoglobin (Bld) [Mass/Vol] 9.2 g/dL Low 12.0-15.0 [facility] Comment on above: Performed By: #### L 100.0600 ####[facility] [address] [place], [address] Iron (Unsp spec) [Mass/Mass] Ordered By: Harry Iniguez on 05-21-2024 Iron measurement (mass/mass) 25 ug/dL Low 50-170 [facility] Iron saturation [Mass fracti on]Ordered By: Harry Iniguez on 05-21-2024 Serum or plasma iron saturation measurement (mass fraction) 9.6 % Low 15.0-55.0 [facility] Iron+Iron Binding Capacityon 05-21-2024 Iron [Mass/Vol] 25 ug/dL Low 50-170 [facility] Comment on above: Performed By: #### L 503.6550, L503.6030 ####[facility] [address] [place], [address] IRON SATURATION 9.6 Low 15.0-55.0 [facility] Comment on above: Performed By: #### L 503.6550, L503.6030 ####[facility] [address] [place], [address] TIBC 260 ug/dL Normal 250-450 [facility] Comment on above: Performed By: #### L 503.6550, L503.6030 ####[facility] [address] [place], [address] No Panel InformationOrdered By: Jailyn Wiggins on 05-21-2024 21 U/L 15-37 [facility] Serum globulin measurementOr dered By: Jailyn Wiggins on 05-21-2024 Serum globulin measurement 3.7 g/dL 2.2-4.2 [facility] Stool Occult Blood iFOBon STOB Negative Normal [facility] Comment on above: Performed By: #### M 100.7900 ####[facility] [address] [place], [address] TIBCOrdered By: Harry jones on 05-21-2024 TIBC 260 ug/dL 250-450 [facility] Total proteinOrdered By: Gutierrez umn White on 05-21-2024 Total protein 5.8 g/dL Low 6.4-8.2 [facility] 12 Lead EKGon 05-20-2024 12 Lead EKG Normal [facility] Abdomen Single View (Portabl e)on 05-20-2024 Abdomen Single View (Portable) Normal [facility] CBC W/Diff, Automatedon 04-23 Absolute Lymph 1.81 X10 3/uL Normal 0.83-4.51 [facility] Comment on above: Performed By: #### L 501.5200, L100.0100, L500.4050 ####[facility] [address] [place], [address] Absolute Neut 6.5 X10 3/uL Normal 2.0-7.7 [facility] Comment on above: Performed By: #### L 501.5200, L100.0100, L500.4050 ####[facility] [address] [place], [address] Basophils/100 WBC (Bld) 0.7 % Normal 0-1 [facility] Comment on above: Performed By: #### L 501.5200, L100.0100, L500.4050 ####[facility] [address] [place], [address] Eosinophils/100 WBC (Bld) 2.1 % Normal 0-5 [facility] Comment on above: Performed By: #### L 501.5200, L100.0100, L500.4050 ####[facility] [address] [place], [address] Erythrocyte distribution width (RBC) [Ratio] 16.3 % High 11.6-14.6 [facility] Comment on above: Performed By: #### L 501.5200, L100.0100, L500.4050 ####[facility] [address] [place], [address] Hematocrit (Bld) [Volume fraction] 27.0 % Low 37-47 [facility] Comment on above: Performed By: #### L 501.5200, L100.0100, L500.4050 ####[facility] [address] [place], [address] Hemoglobin (Bld) [Mass/Vol] 8.7 g/dL Low 12.0-15.0 [facility] Comment on above: Performed By: #### L 501.5200, L100.0100, L500.4050 ####[facility] [address] [place], [address] IG% 4.200 High 0.0-0.9 [facility] Comment on above: Result Comment: IG% - Immature Granulocytes (promyelocytes, myelocytes andmetamyelocytes) > 1% indicates that a LEFT SHIFT is Present. Performed By: #### L 501.5200, L100.0100, L500.4050 ####[facility] [address] [place], [address] Lymphocytes/100 WBC (Bld) 18.5 % Low 19-41 [facility] Comment on above: Performed By: #### L 501.5200, L100.0100, L500.4050 ####[facility] [address] [place], [address] MCH (RBC) [Entitic mass] 28.7 pg Normal 27.0-32.0 [facility] Comment on above: Performed By: #### L 501.5200, L100.0100, L500.4050 ####[facility] [address] [place], [address] MCHC (RBC) [Mass/Vol] 32.2 g/dL Normal 32-36 [facility] Comment on above: Performed By: #### L 501.5200, L100.0100, L500.4050 ####[facility] [address] [place], [address] MCV (RBC) [Entitic vol] 89.1 fL Normal 81-99 [facility] Comment on above: Performed By: #### L 501.5200, L100.0100, L500.4050 ####[facility] [address] [place], [address] Monocytes/100 WBC (Bld) 7.8 % Normal 0-10 [facility] Comment on above: Performed By: #### L 501.5200, L100.0100, L500.4050 ####[facility] [address] [place], [address] Neutrophils/100 WBC (Bld) 66.7 % Normal 47-70 [facility] Comment on above: Performed By: #### L 501.5200, L100.0100, L500.4050 ####[facility] [address] [place], [address] Nucleated RBC (Bld) [#/Vol] 0 10*3/uL Normal 0-5 [facility] Comment on above: Performed By: #### L 501.5200, L100.0100, L500.4050 ####[facility] [address] [place], [address] Platelet mean volume (Bld) [Entitic vol] 9.2 fL Normal 6.2-12.0 [facility] Comment on above: Performed By: #### L 501.5200, L100.0100, L500.4050 ####[facility] [address] [place], [address] Platelets (Bld) [#/Vol] 503 10*3/uL High 150-450 [facility] Comment on above: Performed By: #### L 501.5200, L100.0100, L500.4050 ####[facility] [address] [place], [address] RBC (Bld) [#/Vol] 3.03 10*6/uL Low 4.2-5.4 [facility] Comment on above: Performed By: #### L 501.5200, L100.0100, L500.4050 ####[facility] [address] [place], [address] RDW SD 53.8 fl High 35.1-43.9 [facility] Comment on above: Performed By: #### L 501.5200, L100.0100, L500.4050 ####[facility] [address] [place], [address] WBC (Bld) [#/Vol] 9.8 10*3/uL Normal 4.4-11.0 [facility] Comment on above: Performed By: #### L 501.5200, L100.0100, L500.4050 ####[facility] [address] [place], [address] Comprehensive Metabolic [facility] 05-20-2024 Albumin [Mass/Vol] 2.2 g/dL Low 3.2-5.0 [facility] Comment on above: Performed By: #### L 501.5200, L100.0100, L500.4050 ####[facility] [address] [place], [address] Albumin/Globulin [Mass ratio] 0.6 {ratio} Low 0.9-2.4 [facility] Comment on above: Performed By: #### L 501.5200, L100.0100, L500.4050 ####[facility] [address] [place], [address] ALK P 106 U/L Normal 45-117 [facility] Comment on above: Performed By: #### L 501.5200, L100.0100, L500.4050 ####[facility] [address] [place], [address] ALT [Catalytic activity/Vol] 21 U/L Normal 13-56 [facility] Comment on above: Performed By: #### L 501.5200, L100.0100, L500.4050 ####[facility] [address] [place], [address] AST [Catalytic activity/Vol] 14 U/L Low 15-37 [facility] Comment on above: Performed By: #### L 501.5200, L100.0100, L500.4050 ####[facility] [address] [place], [address] Bilirubin [Mass/Vol] 0.50 mg/dL Normal 0.20-1.00 [facility] Comment on above: Result Comment: For patients on eltrombopag therapy, use of Dimension [place] TBIL is not recommended. Performed By: #### L 501.5200, L100.0100, L500.4050 ####[facility] [address] [place], [address] BUN/CRE 14.1 RATIO Normal 10-20 [facility] Comment on above: Performed By: #### L 501.5200, L100.0100, L500.4050 ####[facility] [address] [place], [address] CA,Total 8.7 mg/dL Normal 8.5-10.1 [facility] Comment on above: Performed By: #### L 501.5200, L100.0100, L500.4050 ####[facility] [address] [place], [address] Chloride [Moles/Vol] 97 mmol/L Low 98-107 [facility] Comment on above: Performed By: #### L 501.5200, L100.0100, L500.4050 ####[facility] [address] [place], [address] CO2 [Moles/Vol] 25.0 mmol/L Normal 21.0-32.0 [facility] Comment on above: Performed By: #### L 501.5200, L100.0100, L500.4050 ####[facility] [address] [place], [address] Creatinine [Mass/Vol] 1.84 mg/dL High 0.55-1.02 [facility] Comment on above: Result Comment: The validity of the calculated GFR GFRAA in patients over70 years has not been determined. Clinical correlation isessential. Performed By: #### L 501.5200, L100.0100, L500.4050 ####[facility] [address] [place], [address] ECRCL 25.71 ml/min Normal [facility] Comment on above: Performed By: #### L 501.5200, L100.0100, L500.4050 ####[facility] [address] [place], [address] EST GFR - AA 35 mL/min Low >60 [facility] Comment on above: Result Comment: Afri can Croatian GFR Calc Performed By: #### L 501.5200, L100.0100, L500.4050 ####[facility] [address] [place], [address] GAP 9 Normal 5-15 [facility] Comment on above: Performed By: #### L 501.5200, L100.0100, L500.4050 ####[facility] [address] [place], [address] GFR/1.73 sq M.predicted among non-blacks MDRD (S/P/Bld) [Vol rate/Area] 29 mL/min/{1.73_m2} Low >60 [facility] Comment on above: Result Comment: Non- GFR Calc Performed By: #### L 501.5200, L100.0100, L500.4050 ####[facility] [address] [place], [address] Globulin (S) [Mass/Vol] 4.0 g/dL Normal 2.2-4.2 [facility] Comment on above: Performed By: #### L 501.5200, L100.0100, L500.4050 ####[facility] [address] [place], [address] Glucose [Mass/Vol] 122 mg/dL High 74-106 [facility] Comment on above: Result Comment: Fast ing Glucose result from 100 to 125 mg/dLsuggests IMPAIRED HOMEOSTASIS per A.D.A. criteria. Performed By: #### L 501.5200, L100.0100, L500.4050 ####[facility] [address] [place], [address] Potassium [Moles/Vol] 3.1 mmol/L Low 3.5-5.1 [facility] Comment on above: Performed By: #### L 501.5200, L100.0100, L500.4050 ####[facility] [address] [place], [address] Sodium [Moles/Vol] 131 mmol/L Low 136-145 [facility] Comment on above: Performed By: #### L 501.5200, L100.0100, L500.4050 ####[facility] [address] [place], [address] T PROT 6.2 g/dL Low 6.4-8.2 [facility] Comment on above: Performed By: #### L 501.5200, L100.0100, L500.4050 ####[facility] [address] [place], [address] Urea nitrogen [Mass/Vol] 26 mg/dL High 7-18 [facility] Comment on above: Performed By: #### L 501.5200, L100.0100, L500.4050 ####[facility] [address] [place], [address] Magnesiumon 05-20-2024 Magnesium [Mass/Vol] 1.9 mg/dL Normal 1.6-2.6 [facility] Comment on above: Performed By: #### L 501.5200, L100.0100, L500.4050 ####[facility] [address] [place], [address] Magnesium measurementOrdered By: Jailyn Wiggins on 05-20-2024 Magnesium measurement 1.9 mg/dL 1.6-2.6 [facility] [employer] 8623on OP Normal [facility] Comment on above: Performed By: #### M 600.5000 ####[facility] [address] [place], [address] Abdomen Single View (Portabl e)on 05-19-2024 Abdomen Single View (Portable) Normal [facility] CBC W/Diff, Automatedon 04-22 Absolute Lymph 1.59 X10 3/uL Normal 0.83-4.51 [facility] Comment on above: Performed By: #### L 100.0100, L500.4050 ####[facility] [address] [place], [address] Absolute Neut 8.0 X10 3/uL High 2.0-7.7 [facility] Comment on above: Performed By: #### L 100.0100, L500.4050 ####[facility] [address] [place], [address] Basophils/100 WBC (Bld) 0.6 % Normal 0-1 [facility] Comment on above: Performed By: #### L 100.0100, L500.4050 ####[facility] [address] [place], [address] Eosinophils/100 WBC (Bld) 1.4 % Normal 0-5 [facility] Comment on above: Performed By: #### L 100.0100, L500.4050 ####[facility] [address] [place], [address] Erythrocyte distribution width (RBC) [Ratio] 16.4 % High 11.6-14.6 [facility] Comment on above: Performed By: #### L 100.0100, L500.4050 ####[facility] [address] [place], [address] Hematocrit (Bld) [Volume fraction] 32.0 % Low 37-47 [facility] Comment on above: Performed By: #### L 100.0100, L500.4050 ####[facility] [address] [place], [address] Hemoglobin (Bld) [Mass/Vol] 10.3 g/dL Low 12.0-15.0 [facility] Comment on above: Performed By: #### L 100.0100, L500.4050 ####[facility] [address] [place], [address] IG% 2.000 High 0.0-0.9 [facility] Comment on above: Result Comment: IG% - Immature Granulocytes (promyelocytes, myelocytes andmetamyelocytes) > 1% indicates that a LEFT SHIFT is Present. Performed By: #### L 100.0100, L500.4050 ####[facility] [address] [place], [address] Lymphocytes/100 WBC (Bld) 14.5 % Low 19-41 [facility] Comment on above: Performed By: #### L 100.0100, L500.4050 ####[facility] [address] [place], [address] MCH (RBC) [Entitic mass] 28.9 pg Normal 27.0-32.0 [facility] Comment on above: Performed By: #### L 100.0100, L500.4050 ####[facility] [address] [place], [address] MCHC (RBC) [Mass/Vol] 32.2 g/dL Normal 32-36 [facility] Comment on above: Performed By: #### L 100.0100, L500.4050 ####[facility] [address] [place], [address] MCV (RBC) [Entitic vol] 89.9 fL Normal 81-99 [facility] Comment on above: Performed By: #### L 100.0100, L500.4050 ####[facility] [address] [place], [address] Monocytes/100 WBC (Bld) 8.9 % Normal 0-10 [facility] Comment on above: Performed By: #### L 100.0100, L500.4050 ####[facility] [address] [place], [address] Neutrophils/100 WBC (Bld) 72.6 % High 47-70 [facility] Comment on above: Performed By: #### L 100.0100, L500.4050 ####[facility] [address] [place], [address] Nucleated RBC (Bld) [#/Vol] 0.2 10*3/uL Normal 0-5 [facility] Comment on above: Performed By: #### L 100.0100, L500.4050 ####[facility] [address] [place], [address] Platelet mean volume (Bld) [Entitic vol] 9.0 fL Normal 6.2-12.0 [facility] Comment on above: Performed By: #### L 100.0100, L500.4050 ####[facility] [address] [place], [address] Platelets (Bld) [#/Vol] 543 10*3/uL High 150-450 [facility] Comment on above: Performed By: #### L 100.0100, L500.4050 ####[facility] [address] [place], [address] RBC (Bld) [#/Vol] 3.56 10*6/uL Low 4.2-5.4 [facility] Comment on above: Performed By: #### L 100.0100, L500.4050 ####[facility] [address] [place], [address] RDW SD 54.1 fl High 35.1-43.9 [facility] Comment on above: Performed By: #### L 100.0100, L500.4050 ####[facility] [address] [place], [address] WBC (Bld) [#/Vol] 11.0 10*3/uL Normal 4.4-11.0 [facility] Comment on above: Performed By: #### L 100.0100, L500.4050 ####[facility] [address] [place], [address] Comprehensive Metabolic Prof ilon 05-19-2024 Albumin [Mass/Vol] 2.4 g/dL Low 3.2-5.0 [facility] Comment on above: Performed By: #### L 100.0100, L500.4050 ####[facility] [address] [place], [address] Albumin/Globulin [Mass ratio] 0.5 {ratio} Low 0.9-2.4 [facility] Comment on above: Performed By: #### L 100.0100, L500.4050 ####[facility] [address] [place], [address] ALK P 125 U/L High 45-117 [facility] Comment on above: Performed By: #### L 100.0100, L500.4050 ####[facility] [address] [place], [address] ALT [Catalytic activity/Vol] 23 U/L Normal 13-56 [facility] Comment on above: Performed By: #### L 100.0100, L500.4050 ####[facility] [address] [place], [address] AST [Catalytic activity/Vol] 21 U/L Normal 15-37 [facility] Comment on above: Performed By: #### L 100.0100, L500.4050 ####[facility] [address] [place], [address] Bilirubin [Mass/Vol] 0.70 mg/dL Normal 0.20-1.00 [facility] Comment on above: Result Comment: For patients on eltrombopag therapy, use of Dimension [place] TBIL is not recommended. Performed By: #### L 100.0100, L500.4050 ####[facility] [address] [place], [address] BUN/CRE 19.3 RATIO Normal 10-20 [facility] Comment on above: Performed By: #### L 100.0100, L500.4050 ####[facility] [address] [place], [address] CA,Total 9.3 mg/dL Normal 8.5-10.1 [facility] Comment on above: Performed By: #### L 100.0100, L500.4050 ####[facility] [address] [place], [address] Chloride [Moles/Vol] 95 mmol/L Low 98-107 [facility] Comment on above: Performed By: #### L 100.0100, L500.4050 ####[facility] [address] [place], [address] CO2 [Moles/Vol] 24.0 mmol/L Normal 21.0-32.0 [facility] Comment on above: Performed By: #### L 100.0100, L500.4050 ####[facility] [address] [place], [address] Creatinine [Mass/Vol] 1.09 mg/dL High 0.55-1.02 [facility] Comment on above: Result Comment: The validity of the calculated GFR GFRAA in patients over70 years has not been determined. Clinical correlation isessential. Performed By: #### L 100.0100, L500.4050 ####[facility] [address] [place], [address] ECRCL 43.00 ml/min Normal [facility] Comment on above: Performed By: #### L 100.0100, L500.4050 ####[facility] [address] [place], [address] EST GFR - AA 64 mL/min Normal >60 [facility] Comment on above: Result Comment: Afri can Croatian GFR Calc Performed By: #### L 100.0100, L500.4050 ####[facility] [address] [place], [address] GAP 11 Normal 5-15 [facility] Comment on above: Performed By: #### L 100.0100, L500.4050 ####[facility] [address] [place], [address] GFR/1.73 sq M.predicted among non-blacks MDRD (S/P/Bld) [Vol rate/Area] 53 mL/min/{1.73_m2} Low >60 [facility] Comment on above: Result Comment: Non- GFR Calc Performed By: #### L 100.0100, L500.4050 ####[facility] [address] [place], [address] Globulin (S) [Mass/Vol] 4.6 g/dL High 2.2-4.2 [facility] Comment on above: Performed By: #### L 100.0100, L500.4050 ####[facility] [address] [place], [address] Glucose [Mass/Vol] 236 mg/dL High 74-106 [facility] Comment on above: Result Comment: Gluc ose result greater than or equal to 200 mg/dLsuggests DIABETES MELLITUS per A.D.A. criteria. Performed By: #### L 100.0100, L500.4050 ####[facility] [address] [place], [address] Potassium [Moles/Vol] 3.2 mmol/L Low 3.5-5.1 [facility] Comment on above: Performed By: #### L 100.0100, L500.4050 ####[facility] [address] [place], [address] Sodium [Moles/Vol] 130 mmol/L Low 136-145 [facility] Comment on above: Performed By: #### L 100.0100, L500.4050 ####[facility] [address] [place], [address] T PROT 7.0 g/dL Normal 6.4-8.2 [facility] Comment on above: Performed By: #### L 100.0100, L500.4050 ####[facility] [address] [place], [address] Urea nitrogen [Mass/Vol] 21 mg/dL High 7-18 [facility] Comment on above: Performed By: #### L 100.0100, L500.4050 ####[facility] [address] [place], [address] L501.4020on 05-19-2024 TROPONIN-I HS 29 pg/mL Normal 3.0-54.0 [facility] Comment on above: Order Comment: Comme nts: SPECIMEN #3'TROP' Serial specimen #1, #2 or #3: 3 Result Comment: Plea se Note: New Test Units and Gender Specific Reference Ranges. For more information see Policy Stat Procedure [place] High Sensitivity Troponin (TNIH) and attachments. Performed By: #### L 501.4020 ####[facility] [address] [place], [address] Magnesiumon 05-19-2024 Magnesium [Mass/Vol] 1.3 mg/dL Low 1.6-2.6 [facility] Comment on above: Order Comment: Comme nts: add onto to am labs Performed By: #### L 501.5200 ####[facility] [address] [place], [address] Troponin IOrdered By: Bassem Vann on 05-19-2024 Troponin I 29 pg/mL 3.0-54.0 [facility] 12 Lead EKGon 05-18-2024 12 Lead EKG Normal [facility] Abdomen Single View (Portabl e)on 05-18-2024 Abdomen Single View (Portable) Normal [facility] CBC W/Diff, Automatedon -2 Absolute Lymph 1.25 X10 3/uL Normal 0.83-4.51 [facility] Comment on above: Performed By: #### L 500.4050, L100.0100 ####[facility] [address] [place], [address] Absolute Neut 8.5 X10 3/uL High 2.0-7.7 [facility] Comment on above: Performed By: #### L 500.4050, L100.0100 ####[facility] [address] [place], [address] Basophils/100 WBC (Bld) 0.5 % Normal 0-1 [facility] Comment on above: Performed By: #### L 500.4050, L100.0100 ####[facility] [address] [place], [address] Eosinophils/100 WBC (Bld) 0.7 % Normal 0-5 [facility] Comment on above: Performed By: #### L 500.4050, L100.0100 ####[facility] [address] [place], [address] Erythrocyte distribution width (RBC) [Ratio] 16.8 % High 11.6-14.6 [facility] Comment on above: Performed By: #### L 500.4050, L100.0100 ####[facility] [address] [place], [address] Hematocrit (Bld) [Volume fraction] 31.3 % Low 37-47 [facility] Comment on above: Performed By: #### L 500.4050, L100.0100 ####[facility] [address] [place], [address] Hemoglobin (Bld) [Mass/Vol] 9.8 g/dL Low 12.0-15.0 [facility] Comment on above: Performed By: #### L 500.4050, L100.0100 ####[facility] [address] [place], [address] IG% 1.200 High 0.0-0.9 [facility] Comment on above: Result Comment: IG% - Immature Granulocytes (promyelocytes, myelocytes andmetamyelocytes) > 1% indicates that a LEFT SHIFT is Present. Performed By: #### L 500.4050, L100.0100 ####[facility] [address] [place], [address] Lymphocytes/100 WBC (Bld) 11.3 % Low 19-41 [facility] Comment on above: Performed By: #### L 500.4050, L100.0100 ####[facility] [address] [place], [address] MCH (RBC) [Entitic mass] 28.9 pg Normal 27.0-32.0 [facility] Comment on above: Performed By: #### L 500.4050, L100.0100 ####[facility] [address] [place], [address] MCHC (RBC) [Mass/Vol] 31.3 g/dL Low 32-36 [facility] Comment on above: Performed By: #### L 500.4050, L100.0100 ####[facility] [address] [place], [address] MCV (RBC) [Entitic vol] 92.3 fL Normal 81-99 [facility] Comment on above: Performed By: #### L 500.4050, L100.0100 ####[facility] [address] [place], [address] Monocytes/100 WBC (Bld) 9.7 % Normal 0-10 [facility] Comment on above: Performed By: #### L 500.4050, L100.0100 ####[facility] [address] [place], [address] Neutrophils/100 WBC (Bld) 76.6 % High 47-70 [facility] Comment on above: Performed By: #### L 500.4050, L100.0100 ####[facility] [address] [place], [address] Nucleated RBC (Bld) [#/Vol] 0 10*3/uL Normal 0-5 [facility] Comment on above: Performed By: #### L 500.4050, L100.0100 ####[facility] [address] [place], [address] Platelet mean volume (Bld) [Entitic vol] 9.1 fL Normal 6.2-12.0 [facility] Comment on above: Performed By: #### L 500.4050, L100.0100 ####[facility] [address] [place], [address] Platelets (Bld) [#/Vol] 534 10*3/uL High 150-450 [facility] Comment on above: Performed By: #### L 500.4050, L100.0100 ####[facility] [address] [place], [address] RBC (Bld) [#/Vol] 3.39 10*6/uL Low 4.2-5.4 [facility] Comment on above: Performed By: #### L 500.4050, L100.0100 ####[facility] [address] [place], [address] RDW SD 56.8 fl High 35.1-43.9 [facility] Comment on above: Performed By: #### L 500.4050, L100.0100 ####[facility] [address] [place], [address] WBC (Bld) [#/Vol] 11.1 10*3/uL High 4.4-11.0 [facility] Comment on above: Performed By: #### L 500.4050, L100.0100 ####[facility] [address] [place], [address] Comprehensive Metabolic Prof ilon 05-18-2024 Albumin [Mass/Vol] 2.7 g/dL Low 3.2-5.0 [facility] Comment on above: Performed By: #### L 500.4050, L100.0100 ####[facility] [address] [place], [address] Albumin/Globulin [Mass ratio] 0.6 {ratio} Low 0.9-2.4 [facility] Comment on above: Performed By: #### L 500.4050, L100.0100 ####[facility] [address] [place], [address] ALK P 140 U/L High 45-117 [facility] Comment on above: Performed By: #### L 500.4050, L100.0100 ####[facility] [address] [place], [address] ALT [Catalytic activity/Vol] 23 U/L Normal 13-56 [facility] Comment on above: Performed By: #### L 500.4050, L100.0100 ####[facility] [address] [place], [address] AST [Catalytic activity/Vol] 15 U/L Normal 15-37 [facility] Comment on above: Performed By: #### L 500.4050, L100.0100 ####[facility] [address] [place], [address] Bilirubin [Mass/Vol] 0.40 mg/dL Normal 0.20-1.00 [facility] Comment on above: Result Comment: For patients on eltrombopag therapy, use of Dimension [place] TBIL is not recommended. Performed By: #### L 500.4050, L100.0100 ####[facility] [address] [place], [address] BUN/CRE 21.8 RATIO High 10-20 [facility] Comment on above: Performed By: #### L 500.4050, L100.0100 ####[facility] [address] [place], [address] CA,Total 9.1 mg/dL Normal 8.5-10.1 [facility] Comment on above: Performed By: #### L 500.4050, L100.0100 ####[facility] [address] [place], [address] Chloride [Moles/Vol] 100 mmol/L Normal 98-107 [facility] Comment on above: Performed By: #### L 500.4050, L100.0100 ####[facility] [address] [place], [address] CO2 [Moles/Vol] 27.0 mmol/L Normal 21.0-32.0 [facility] Comment on above: Performed By: #### L 500.4050, L100.0100 ####[facility] [address] [place], [address] Creatinine [Mass/Vol] 0.87 mg/dL Normal 0.55-1.02 [facility] Comment on above: Result Comment: The validity of the calculated GFR GFRAA in patients over70 years has not been determined. Clinical correlation isessential. Performed By: #### L 500.4050, L100.0100 ####[facility] [address] [place], [address] ECRCL 52.44 ml/min Normal [facility] Comment on above: Performed By: #### L 500.4050, L100.0100 ####[facility] [address] [place], [address] EST GFR - AA 83 mL/min Normal >60 [facility] Comment on above: Result Comment: Afri can Croatian GFR Calc Performed By: #### L 500.4050, L100.0100 ####[facility] [address] [place], [address] GAP 7 Normal 5-15 [facility] Comment on above: Performed By: #### L 500.4050, L100.0100 ####[facility] [address] [place], [address] GFR/1.73 sq M.predicted among non-blacks MDRD (S/P/Bld) [Vol rate/Area] 69 mL/min/{1.73_m2} Normal >60 [facility] Comment on above: Result Comment: Non- GFR Calc Performed By: #### L 500.4050, L100.0100 ####[facility] [address] [place], [address] Globulin (S) [Mass/Vol] 4.7 g/dL High 2.2-4.2 [facility] Comment on above: Performed By: #### L 500.4050, L100.0100 ####[facility] [address] [place], [address] Glucose [Mass/Vol] 133 mg/dL High 74-106 [facility] Comment on above: Result Comment: Fast ing Glucose result greater than or equal to 126 mg/dLsuggests DIABETES MELLITUS per A.D.A. criteria. Performed By: #### L 500.4050, L100.0100 ####[facility] [address] [place], [address] Potassium [Moles/Vol] 3.5 mmol/L Normal 3.5-5.1 [facility] Comment on above: Performed By: #### L 500.4050, L100.0100 ####[facility] [address] [place], [address] Sodium [Moles/Vol] 135 mmol/L Low 136-145 [facility] Comment on above: Performed By: #### L 500.4050, L100.0100 ####[facility] [address] [place], [address] T PROT 7.4 g/dL Normal 6.4-8.2 [facility] Comment on above: Performed By: #### L 500.4050, L100.0100 ####[facility] [address] [place], [address] Urea nitrogen [Mass/Vol] 19 mg/dL High 7-18 [facility] Comment on above: Performed By: #### L 500.4050, L100.0100 ####[facility] [address] [place], [address] L501.4020on 05-18-2024 TROPONIN-I HS 20 pg/mL Normal 3.0-54.0 [facility] Comment on above: Order Comment: Comme nts: SPECIMEN #2'TROP' Serial specimen #1, #2 or #3: 2 Result Comment: Plea se Note: New Test Units and Gender Specific Reference Ranges. For more information see Policy Stat Procedure [place] High Sensitivity Troponin (TNIH) and attachments. Performed By: #### L 501.4020 ####[facility] [address] [place], [address] TROPONIN-I HS 23 pg/mL Normal 3.0-54.0 [facility] Comment on above: Order Comment: 'TROP ' Serial specimen #1, #2 or #3: 1 Result Comment: Plea se Note: New Test Units and Gender Specific Reference Ranges. For more information see Policy Stat Procedure [place] High Sensitivity Troponin (TNIH) and attachments. Performed By: #### L 501.4020 ####[facility] [address] [place], [address] CBC W/Diff, Automatedon 12-2 Absolute Lymph 1.00 X10 3/uL Normal 0.83-4.51 [facility] Comment on above: Order Comment: REDRA W. PREVIOUS SPECIMEN REJECTED DUE TOQNS. 05/17/24 0935 [place]. Performed By: #### L 100.0100 ####[facility] [address] [place], [address] Absolute Neut 7.3 X10 3/uL Normal 2.0-7.7 [facility] Comment on above: Order Comment: REDRA W. PREVIOUS SPECIMEN REJECTED DUE TOQNS. 05/17/24 0935 [place] Sam. Performed By: #### L 100.0100 ####[facility] [address] [place], [address] Basophils/100 WBC (Bld) 0.4 % Normal 0-1 [facility] Comment on above: Order Comment: REDRA W. PREVIOUS SPECIMEN REJECTED DUE TOQNS. 05/17/24 0935 [place] Sam. Performed By: #### L 100.0100 ####[facility] [address] [place], [address] Eosinophils/100 WBC (Bld) 0.9 % Normal 0-5 [facility] Comment on above: Order Comment: REDRA W. PREVIOUS SPECIMEN REJECTED DUE TOQNS. 05/17/24 0935 [place] Sam. Performed By: #### L 100.0100 ####[facility] [address] [place], [address] Erythrocyte distribution width (RBC) [Ratio] 16.9 % High 11.6-14.6 [facility] Comment on above: Order Comment: REDRA W. PREVIOUS SPECIMEN REJECTED DUE TOQNS. 05/17/24 0935 [place] Sam. Performed By: #### L 100.0100 ####[facility] [address] [place], [address] Hematocrit (Bld) [Volume fraction] 29.9 % Low 37-47 [facility] Comment on above: Order Comment: REDRA W. PREVIOUS SPECIMEN REJECTED DUE TOQNS. 05/17/24 0935 [place] Sam. Performed By: #### L 100.0100 ####[facility] [address] [place], [address] Hemoglobin (Bld) [Mass/Vol] 9.6 g/dL Low 12.0-15.0 [facility] Comment on above: Order Comment: REDRA W. PREVIOUS SPECIMEN REJECTED DUE TOQNS. 05/17/24 [facility] Sandy Sam. Performed By: #### L 100.0100 ####[facility] [address] [place], [address] IG% 1.300 High 0.0-0.9 [facility] Comment on above: Order Comment: REDRA W. PREVIOUS SPECIMEN REJECTED DUE TOQNS. 05/17/24 [facility] Sandy Sam. Result Comment: IG% - Immature Granulocytes (promyelocytes, myelocytes andmetamyelocytes) > 1% indicates that a LEFT SHIFT is Present. Performed By: #### L 100.0100 ####[facility] [address] [place], [address] Lymphocytes/100 WBC (Bld) 10.5 % Low 19-41 [facility] Comment on above: Order Comment: REDRA W. PREVIOUS SPECIMEN REJECTED DUE TOQNS. 05/17/24 [facility] Sandy Sam. Performed By: #### L 100.0100 ####[facility] [address] [place], [address] MCH (RBC) [Entitic mass] 29.3 pg Normal 27.0-32.0 [facility] Comment on above: Order Comment: REDRA W. PREVIOUS SPECIMEN REJECTED DUE TOQNS. 05/17/24 [facility] Sandy Sam. Performed By: #### L 100.0100 ####[facility] [address] [place], [address] MCHC (RBC) [Mass/Vol] 32.1 g/dL Normal 32-36 [facility] Comment on above: Order Comment: REDRA W. PREVIOUS SPECIMEN REJECTED DUE TOQNS. 05/17/24 0935 Sandy Sam. Performed By: #### L 100.0100 ####[facility] [address] [place], [address] MCV (RBC) [Entitic vol] 91.2 fL Normal 81-99 [facility] Comment on above: Order Comment: REDRA W. PREVIOUS SPECIMEN REJECTED DUE TOQNS. 05/17/24 0935 Sandy Sam. Performed By: #### L 100.0100 ####[facility] [address] [place], [address] Monocytes/100 WBC (Bld) 10.7 % High 0-10 [facility] Comment on above: Order Comment: REDRA W. PREVIOUS SPECIMEN REJECTED DUE TOQNS. 05/17/2435 [place]. Performed By: #### L 100.0100 ####[facility] [address] [place], [address] Neutrophils/100 WBC (Bld) 76.2 % High 47-70 [facility] Comment on above: Order Comment: REDRA W. PREVIOUS SPECIMEN REJECTED DUE TOQNS. 05/17/24 0935 [place]. Performed By: #### L 100.0100 ####[facility] [address] [place], [address] Nucleated RBC (Bld) [#/Vol] 0.2 10*3/uL Normal 0-5 [facility] Comment on above: Order Comment: REDRA W. PREVIOUS SPECIMEN REJECTED DUE TOQNS. 05/17/24 0935 [place] Sam. Performed By: #### L 100.0100 ####[facility] [address] [place], [address] Platelet mean volume (Bld) [Entitic vol] 9.1 fL Normal 6.2-12.0 [facility] Comment on above: Order Comment: REDRA W. PREVIOUS SPECIMEN REJECTED DUE TOQNS. 05/17/2435 [place]. Performed By: #### L 100.0100 ####[facility] [address] [place], [address] Platelets (Bld) [#/Vol] 526 10*3/uL High 150-450 [facility] Comment on above: Order Comment: REDRA W. PREVIOUS SPECIMEN REJECTED DUE TOQNS. 05/17/2435 [place]. Performed By: #### L 100.0100 ####[facility] [address] [place], [address] RBC (Bld) [#/Vol] 3.28 10*6/uL Low 4.2-5.4 [facility] Comment on above: Order Comment: REDRA W. PREVIOUS SPECIMEN REJECTED DUE TOQNS. 05/17/24 [place]. Performed By: #### L 100.0100 ####[facility] [address] [place], [address] RDW SD 56.6 fl High 35.1-43.9 [facility] Comment on above: Order Comment: REDRA W. PREVIOUS SPECIMEN REJECTED DUE TOQNS. 05/17/2435 [place] Sam. Performed By: #### L 100.0100 ####[facility] [address] [place], [address] WBC (Bld) [#/Vol] 9.5 10*3/uL Normal 4.4-11.0 [facility] Comment on above: Order Comment: REDRA W. PREVIOUS SPECIMEN REJECTED DUE TOQNS. 05/17/2435 [place]. Performed By: #### L 100.0100 ####[facility] [address] [place], [address] Absolute Neut Normal 2.0-7.7 [facility] Comment on above: Result Comment: This specimen has been REJECTED due to Laboratory criteria:Quanity Not Sufficient.[facility] has been notified of need of recollection.05/17/24933 Sandy Sam Performed By: #### L 100.0100, L500.4050 ####[facility] [address] [place], [address] HCT Normal 37-47 [facility] Comment on above: Result Comment: This specimen has been REJECTED due to Laboratory criteria:Quanity Not Sufficient.[facility] has been notified of need of recollection.05/17/24933 Sandy Sam Performed By: #### L 100.0100, L500.4050 ####[facility] [address] [place], [address] HGB Normal 12.0-15.0 [facility] Comment on above: Result Comment: This specimen has been REJECTED due to Laboratory criteria:Quanity Not Sufficient.[facility] has been notified of need of recollection.05/17/24933 Sandy Sam Performed By: #### L 100.0100, L500.4050 ####[facility] [address] [place], [address] MCH Normal 27.0-32.0 [facility] Comment on above: Result Comment: This specimen has been REJECTED due to Laboratory criteria:Quanity Not Sufficient.[facility] has been notified of need of recollection.05/17/24933 Sandy Sam Performed By: #### L 100.0100, L500.4050 ####[facility] [address] [place], [address] MCHC Normal 32-36 [facility] Comment on above: Result Comment: This specimen has been REJECTED due to Laboratory criteria:Quanity Not Sufficient.[facility] has been notified of need of recollection.05/17/24933 Sandy Sam Performed By: #### L 100.0100, L500.4050 ####[facility] [address] [place], [address] MCV Normal 81-99 [facility] Comment on above: Result Comment: This specimen has been REJECTED due to Laboratory criteria:Quanity Not Sufficient.[facility] has been notified of need of recollection.05/17/24933 Sandy Sam Performed By: #### L 100.0100, L500.4050 ####[facility] [address] [place], [address] NEUT% Normal 47-70 [facility] Comment on above: Result Comment: This specimen has been REJECTED due to Laboratory criteria:Quanity Not Sufficient.[facility] has been notified of need of recollection.05/17/24933 Sandy Sam Performed By: #### L 100.0100, L500.4050 ####[facility] [address] [place], [address] PLT Normal 150-450 [facility] Comment on above: Result Comment: This specimen has been REJECTED due to Laboratory criteria:Quanity Not Sufficient.[facility] has been notified of need of recollection.05/17/24933 Sandy Sam Performed By: #### L 100.0100, L500.4050 ####[facility] [address] [place], [address] RBC Normal 4.2-5.4 [facility] Comment on above: Result Comment: This specimen has been REJECTED due to Laboratory criteria:Quanity Not Sufficient.[facility] has been notified of need of recollection.05/17/24933 Sandy Sam Performed By: #### L 100.0100, L500.4050 ####[facility] [address] [place], [address] RDW CV Normal 11.6-14.6 [facility] Comment on above: Result Comment: This specimen has been REJECTED due to Laboratory criteria:Quanity Not Sufficient.[facility] has been notified of need of recollection.05/17/24933 Sandy Sam Performed By: #### L 100.0100, L500.4050 ####[facility] [address] [place], [address] RDW SD Normal 35.1-43.9 [facility] Comment on above: Result Comment: This specimen has been REJECTED due to Laboratory criteria:Quanity Not Sufficient.[facility] has been notified of need of recollection.05/17/24933 Sandyalden Sam Performed By: #### L 100.0100, L500.4050 ####[facility] [address] [place], [address] WBC Normal 4.4-11.0 [facility] Comment on above: Result Comment: This specimen has been REJECTED due to Laboratory criteria:Quanity Not Sufficient.[facility] has been notified of need of recollection.05/17/24933 Sandy Sam Performed By: #### L 100.0100, L500.4050 ####[facility] [address] [place], [address] Comprehensive Metabolic Prof meon 05-17-2024 Albumin [Mass/Vol] 3.0 g/dL Low 3.2-5.0 [facility] Comment on above: Performed By: #### L 100.0100, L500.4050 ####[facility] [address] [place], [address] Albumin/Globulin [Mass ratio] 0.6 {ratio} Low 0.9-2.4 [facility] Comment on above: Performed By: #### L 100.0100, L500.4050 ####[facility] [address] [place], [address] ALK P 144 U/L High 45-117 [facility] Comment on above: Performed By: #### L 100.0100, L500.4050 ####[facility] [address] [place], [address] ALT [Catalytic activity/Vol] 27 U/L Normal 13-56 [facility] Comment on above: Performed By: #### L 100.0100, L500.4050 ####[facility] [address] [place], [address] AST [Catalytic activity/Vol] 20 U/L Normal 15-37 [facility] Comment on above: Performed By: #### L 100.0100, L500.4050 ####[facility] [address] [place], [address] Bilirubin [Mass/Vol] 0.50 mg/dL Normal 0.20-1.00 [facility] Comment on above: Result Comment: For patients on eltrombopag therapy, use of Dimension [place] TBIL is not recommended. Performed By: #### L 100.0100, L500.4050 ####[facility] [address] [place], [address] BUN/CRE 24.6 RATIO High 10-20 [facility] Comment on above: Performed By: #### L 100.0100, L500.4050 ####[facility] [address] [place], [address] CA,Total 8.9 mg/dL Normal 8.5-10.1 [facility] Comment on above: Performed By: #### L 100.0100, L500.4050 ####[facility] [address] [place], [address] Chloride [Moles/Vol] 102 mmol/L Normal 98-107 [facility] Comment on above: Performed By: #### L 100.0100, L500.4050 ####[facility] [address] [place], [address] CO2 [Moles/Vol] 26.0 mmol/L Normal 21.0-32.0 [facility] Comment on above: Performed By: #### L 100.0100, L500.4050 ####[facility] [address] [place], [address] Creatinine [Mass/Vol] 0.97 mg/dL Normal 0.55-1.02 [facility] Comment on above: Result Comment: The validity of the calculated GFR GFRAA in patients over70 years has not been determined. Clinical correlation isessential. Performed By: #### L 100.0100, L500.4050 ####[facility] [address] [place], [address] ECRCL 47.92 ml/min Normal [facility] Comment on above: Performed By: #### L 100.0100, L500.4050 ####[facility] [address] [place], [address] EST GFR - AA 73 mL/min Normal >60 [facility] Comment on above: Result Comment: Afri can Croatian GFR Calc Performed By: #### L 100.0100, L500.4050 ####[facility] [address] [place], [address] GAP 8 Normal 5-15 [facility] Comment on above: Performed By: #### L 100.0100, L500.4050 ####[facility] [address] [place], [address] GFR/1.73 sq M.predicted among non-blacks MDRD (S/P/Bld) [Vol rate/Area] 60 mL/min/{1.73_m2} Normal >60 [facility] Comment on above: Result Comment: Non- GFR Calc Performed By: #### L 100.0100, L500.4050 ####[facility] [address] [place], [address] Globulin (S) [Mass/Vol] 5.2 g/dL High 2.2-4.2 [facility] Comment on above: Performed By: #### L 100.0100, L500.4050 ####[facility] [address] [place], [address] Glucose [Mass/Vol] 135 mg/dL High 74-106 [facility] Comment on above: Result Comment: Fast ing Glucose result greater than or equal to 126 mg/dLsuggests DIABETES MELLITUS per A.D.A. criteria. Performed By: #### L 100.0100, L500.4050 ####[facility] [address] [place], [address] Potassium [Moles/Vol] 4.1 mmol/L Normal 3.5-5.1 [facility] Comment on above: Performed By: #### L 100.0100, L500.4050 ####[facility] [address] [place], [address] Sodium [Moles/Vol] 136 mmol/L Normal 136-145 [facility] Comment on above: Performed By: #### L 100.0100, L500.4050 ####[facility] [address] [place], [address] T PROT 8.2 g/dL Normal 6.4-8.2 [facility] Comment on above: Performed By: #### L 100.0100, L500.4050 ####[facility] [address] [place], [address] Urea nitrogen [Mass/Vol] 24 mg/dL High 7-18 [facility] Comment on above: Performed By: #### L 100.0100, L500.4050 ####[facility] [address] [place], [address] ENTERIC PATHOGEN PANEL STOOL on 05-17-2024 EP PANEL CAMPYLOBACTER Not Detected Norovirus Not Detected Rotavirus Not Detected Salmonella Not Detected Shiga Toxin Not Detected Shigella sp. Not Detected VIBRIO Not Detected Yersinia Not Detected Normal [facility] Comment on above: Performed By: #### M 100.637 ####[facility] [address] [place], [address] Stool Lactoferrin/WBCon 12-2 7-2024 WBCST Normal Reference Ran ge = Negative Fecal WBC Lactoferrin A Positive: Fecal WBC Lactoferrin present A Normal [facility] Comment on above: Performed By: #### M 100.0605 ####[facility] [address] [place], [address] Abdomen Single View (Portabl e)on 05-16-2024 Abdomen Single View (Portable) Normal [facility] CBC W/Diff, Automatedon 04-22 Absolute Lymph 0.87 X10 3/uL Normal 0.83-4.51 [facility] Comment on above: Performed By: #### L 100.0100, L500.4050 ####[facility] [address] [place], [address] Absolute Neut 4.0 X10 3/uL Normal 2.0-7.7 [facility] Comment on above: Performed By: #### L 100.0100, L500.4050 ####[facility] [address] [place], [address] Basophils/100 WBC (Bld) 0.9 % Normal 0-1 [facility] Comment on above: Performed By: #### L 100.0100, L500.4050 ####[facility] [address] [place], [address] Eosinophils/100 WBC (Bld) 2.1 % Normal 0-5 [facility] Comment on above: Performed By: #### L 100.0100, L500.4050 ####[facility] [address] [place], [address] Erythrocyte distribution width (RBC) [Ratio] 16.9 % High 11.6-14.6 [facility] Comment on above: Performed By: #### L 100.0100, L500.4050 ####[facility] [address] [place], [address] Hematocrit (Bld) [Volume fraction] 30.3 % Low 37-47 [facility] Comment on above: Performed By: #### L 100.0100, L500.4050 ####[facility] [address] [place], [address] Hemoglobin (Bld) [Mass/Vol] 9.4 g/dL Low 12.0-15.0 [facility] Comment on above: Performed By: #### L 100.0100, L500.4050 ####[facility] [address] [place], [address] IG% 0.500 Normal 0.0-0.9 [facility] Comment on above: Result Comment: IG% - Immature Granulocytes (promyelocytes, myelocytes andmetamyelocytes) > 1% indicates that a LEFT SHIFT is Present. Performed By: #### L 100.0100, L500.4050 ####[facility] [address] [place], [address] Lymphocytes/100 WBC (Bld) 15.0 % Low 19-41 [facility] Comment on above: Performed By: #### L 100.0100, L500.4050 ####[facility] [address] [place], [address] MCH (RBC) [Entitic mass] 28.3 pg Normal 27.0-32.0 [facility] Comment on above: Performed By: #### L 100.0100, L500.4050 ####[facility] [address] [place], [address] MCHC (RBC) [Mass/Vol] 31.0 g/dL Low 32-36 [facility] Comment on above: Performed By: #### L 100.0100, L500.4050 ####[facility] [address] [place], [address] MCV (RBC) [Entitic vol] 91.3 fL Normal 81-99 [facility] Comment on above: Performed By: #### L 100.0100, L500.4050 ####[facility] [address] [place], [address] Monocytes/100 WBC (Bld) 12.1 % High 0-10 [facility] Comment on above: Performed By: #### L 100.0100, L500.4050 ####[facility] [address] [place], [address] Neutrophils/100 WBC (Bld) 69.4 % Normal 47-70 [facility] Comment on above: Performed By: #### L 100.0100, L500.4050 ####[facility] [address] [place], [address] Nucleated RBC (Bld) [#/Vol] 0 10*3/uL Normal 0-5 [facility] Comment on above: Performed By: #### L 100.0100, L500.4050 ####[facility] [address] [place], [address] Platelet mean volume (Bld) [Entitic vol] 9.3 fL Normal 6.2-12.0 [facility] Comment on above: Performed By: #### L 100.0100, L500.4050 ####[facility] [address] [place], [address] Platelets (Bld) [#/Vol] 475 10*3/uL High 150-450 [facility] Comment on above: Performed By: #### L 100.0100, L500.4050 ####[facility] [address] [place], [address] RBC (Bld) [#/Vol] 3.32 10*6/uL Low 4.2-5.4 [facility] Comment on above: Performed By: #### L 100.0100, L500.4050 ####[facility] [address] [place], [address] RDW SD 56.6 fl High 35.1-43.9 [facility] Comment on above: Performed By: #### L 100.0100, L500.4050 ####[facility] [address] [place], [address] WBC (Bld) [#/Vol] 5.8 10*3/uL Normal 4.4-11.0 [facility] Comment on above: Performed By: #### L 100.0100, L500.4050 ####[facility] [address] [place], [address] Comprehensive Metabolic Prof ilon 05-16-2024 Albumin [Mass/Vol] 2.9 g/dL Low 3.2-5.0 [facility] Comment on above: Performed By: #### L 100.0100, L500.4050 ####[facility] [address] [place], [address] Albumin/Globulin [Mass ratio] 0.7 {ratio} Low 0.9-2.4 [facility] Comment on above: Performed By: #### L 100.0100, L500.4050 ####[facility] [address] [place], [address] ALK P 119 U/L High 45-117 [facility] Comment on above: Performed By: #### L 100.0100, L500.4050 ####[facility] [address] [place], [address] ALT [Catalytic activity/Vol] 25 U/L Normal 13-56 [facility] Comment on above: Performed By: #### L 100.0100, L500.4050 ####[facility] [address] [place], [address] AST [Catalytic activity/Vol] 18 U/L Normal 15-37 [facility] Comment on above: Performed By: #### L 100.0100, L500.4050 ####[facility] [address] [place], [address] Bilirubin [Mass/Vol] 0.50 mg/dL Normal 0.20-1.00 [facility] Comment on above: Result Comment: For patients on eltrombopag therapy, use of Dimension [place] TBIL is not recommended. Performed By: #### L 100.0100, L500.4050 ####[facility] [address] [place], [address] BUN/CRE 31.0 RATIO High 10-20 [facility] Comment on above: Performed By: #### L 100.0100, L500.4050 ####[facility] [address] [place], [address] CA,Total 7.6 mg/dL Low 8.5-10.1 [facility] Comment on above: Performed By: #### L 100.0100, L500.4050 ####[facility] [address] [place], [address] Chloride [Moles/Vol] 104 mmol/L Normal 98-107 [facility] Comment on above: Performed By: #### L 100.0100, L500.4050 ####[facility] [address] [place], [address] CO2 [Moles/Vol] 24.0 mmol/L Normal 21.0-32.0 [facility] Comment on above: Performed By: #### L 100.0100, L500.4050 ####[facility] [address] [place], [address] Creatinine [Mass/Vol] 1.13 mg/dL High 0.55-1.02 [facility] Comment on above: Result Comment: The validity of the calculated GFR GFRAA in patients over70 years has not been determined. Clinical correlation isessential. Performed By: #### L 100.0100, L500.4050 ####[facility] [address] [place], [address] ECRCL 41.47 ml/min Normal [facility] Comment on above: Performed By: #### L 100.0100, L500.4050 ####[facility] [address] [place], [address] EST GFR - AA 62 mL/min Normal >60 [facility] Comment on above: Result Comment: Afri can Croatian GFR Calc Performed By: #### L 100.0100, L500.4050 ####[facility] [address] [place], [address] GAP 6 Normal 5-15 [facility] Comment on above: Performed By: #### L 100.0100, L500.4050 ####[facility] [address] [place], [address] GFR/1.73 sq M.predicted among non-blacks MDRD (S/P/Bld) [Vol rate/Area] 51 mL/min/{1.73_m2} Low >60 [facility] Comment on above: Result Comment: Non- GFR Calc Performed By: #### L 100.0100, L500.4050 ####[facility] [address] [place], [address] Globulin (S) [Mass/Vol] 4.3 g/dL High 2.2-4.2 [facility] Comment on above: Performed By: #### L 100.0100, L500.4050 ####[facility] [address] [place], [address] Glucose [Mass/Vol] 134 mg/dL High 74-106 [facility] Comment on above: Result Comment: Fast ing Glucose result greater than or equal to 126 mg/dLsuggests DIABETES MELLITUS per A.D.A. criteria. Performed By: #### L 100.0100, L500.4050 ####[facility] [address] [place], [address] Potassium [Moles/Vol] 3.8 mmol/L Normal 3.5-5.1 [facility] Comment on above: Performed By: #### L 100.0100, L500.4050 ####[facility] [address] [place], [address] Sodium [Moles/Vol] 134 mmol/L Low 136-145 [facility] Comment on above: Performed By: #### L 100.0100, L500.4050 ####[facility] [address] [place], [address] T PROT 7.2 g/dL Normal 6.4-8.2 [facility] Comment on above: Performed By: #### L 100.0100, L500.4050 ####[facility] [address] [place], [address] Urea nitrogen [Mass/Vol] 35 mg/dL High 7-18 [facility] Comment on above: Performed By: #### L 100.0100, L500.4050 ####[facility] [address] [place], [address] Small Bowel Series Onlyon Small Bowel Series Only Normal [facility] Abdomen Single View (Portabl e)on 05-15-2024 Abdomen Single View (Portable) Normal [facility] Abdomen Single View (Portable) Normal [facility] CBC W/Diff, Automatedon 04-22 SMEAR COMMENT SCANNED Normal [facility] Comment on above: Result Comment: LEFT SHIFT: BANDS PRESENT 3+ Performed By: #### L 100.0100 ####[facility] [address] [place], [address] Comprehensive Metabolic Prof ilon 05-15-2024 Albumin [Mass/Vol] 2.9 g/dL Low 3.2-5.0 [facility] Comment on above: Performed By: #### L 501.2300, L500.4050, L501.5200 ####[facility] [address] [place], [address] Albumin/Globulin [Mass ratio] 0.7 {ratio} Low 0.9-2.4 [facility] Comment on above: Performed By: #### L 501.2300, L500.4050, L501.5200 ####[facility] [address] [place], [address] ALK P 117 U/L Normal 45-117 [facility] Comment on above: Performed By: #### L 501.2300, L500.4050, L501.5200 ####[facility] [address] [place], [address] ALT [Catalytic activity/Vol] 22 U/L Normal 13-56 [facility] Comment on above: Performed By: #### L 501.2300, L500.4050, L501.5200 ####[facility] [address] [place], [address] AST [Catalytic activity/Vol] 16 U/L Normal 15-37 [facility] Comment on above: Performed By: #### L 501.2300, L500.4050, L501.5200 ####[facility] [address] [place], [address] Bilirubin [Mass/Vol] 0.70 mg/dL Normal 0.20-1.00 [facility] Comment on above: Result Comment: For patients on eltrombopag therapy, use of Dimension [place] TBIL is not recommended. Performed By: #### L 501.2300, L500.4050, L501.5200 ####[facility] [address] [place], [address] BUN/CRE 27.5 RATIO High 10-20 [facility] Comment on above: Performed By: #### L 501.2300, L500.4050, L501.5200 ####[facility] [address] [place], [address] CA,Total 7.0 mg/dL Low 8.5-10.1 [facility] Comment on above: Performed By: #### L 501.2300, L500.4050, L501.5200 ####[facility] [address] [place], [address] Chloride [Moles/Vol] 99 mmol/L Normal 98-107 [facility] Comment on above: Performed By: #### L 501.2300, L500.4050, L501.5200 ####[facility] [address] [place], [address] CO2 [Moles/Vol] 24.0 mmol/L Normal 21.0-32.0 [facility] Comment on above: Performed By: #### L 501.2300, L500.4050, L501.5200 ####[facility] [address] [place], [address] Creatinine [Mass/Vol] 1.93 mg/dL High 0.55-1.02 [facility] Comment on above: Result Comment: The validity of the calculated GFR GFRAA in patients over70 years has not been determined. Clinical correlation isessential. Performed By: #### L 501.2300, L500.4050, L501.5200 ####[facility] [address] [place], [address] ECRCL 24.35 ml/min Normal [facility] Comment on above: Performed By: #### L 501.2300, L500.4050, L501.5200 ####[facility] [address] [place], [address] EST GFR - AA 33 mL/min Low >60 [facility] Comment on above: Result Comment: Afri can Croatian GFR Calc Performed By: #### L 501.2300, L500.4050, L501.5200 ####[facility] [address] [place], [address] GAP 9 Normal 5-15 [facility] Comment on above: Performed By: #### L 501.2300, L500.4050, L501.5200 ####[facility] [address] [place], [address] GFR/1.73 sq M.predicted among non-blacks MDRD (S/P/Bld) [Vol rate/Area] 28 mL/min/{1.73_m2} Low >60 [facility] Comment on above: Result Comment: Non- GFR Calc Performed By: #### L 501.2300, L500.4050, L501.5200 ####[facility] [address] [place], [address] Globulin (S) [Mass/Vol] 4.3 g/dL High 2.2-4.2 [facility] Comment on above: Performed By: #### L 501.2300, L500.4050, L501.5200 ####[facility] [address] [place], [address] Glucose [Mass/Vol] 168 mg/dL High 74-106 [facility] Comment on above: Result Comment: Fast ing Glucose result greater than or equal to 126 mg/dLsuggests DIABETES MELLITUS per A.D.A. criteria. Performed By: #### L 501.2300, L500.4050, L501.5200 ####[facility] [address] [place], [address] Potassium [Moles/Vol] 3.6 mmol/L Normal 3.5-5.1 [facility] Comment on above: Performed By: #### L 501.2300, L500.4050, L501.5200 ####[facility] [address] [place], [address] Sodium [Moles/Vol] 132 mmol/L Low 136-145 [facility] Comment on above: Performed By: #### L 501.2300, L500.4050, L501.5200 ####[facility] [address] [place], [address] T PROT 7.2 g/dL Normal 6.4-8.2 [facility] Comment on above: Performed By: #### L 501.2300, L500.4050, L501.5200 ####[facility] [address] [place], [address] Urea nitrogen [Mass/Vol] 53 mg/dL High 7-18 [facility] Comment on above: Performed By: #### L 501.2300, L500.4050, L501.5200 ####[facility] [address] [place], [address] Creatinine, Urine (random)on 05-15-2024 UR CREAT 170.00 mg/dL Normal NO RANGE EST. [facility] Comment on above: Performed By: #### L 501.1200 ####[facility] [address] [place], [address] Magnesiumon 05-15-2024 Magnesium [Mass/Vol] 2.2 mg/dL Normal 1.6-2.6 [facility] Comment on above: Performed By: #### L 501.2300, L500.4050, L501.5200 ####[facility] [address] [place], [address] Phosphoruson 05-15-2024 Phosphate [Mass/Vol] 3.1 mg/dL Normal 2.5-4.9 [facility] Comment on above: Performed By: #### L 501.2300, L500.4050, L501.5200 ####[facility] [address] [place], [address] Phosphorus measurementOrdere d By: Bassem Vann on 05-15-2024 Phosphorus measurement 3.1 mg/dL 2.5-4.9 [facility] 12 Lead EKGon 05-14-2024 12 Lead EKG Normal [facility] Abdomen Single View (Portabl e)on 05-14-2024 Abdomen Single View (Portable) Normal [facility] Basic Metabolic Profile (BMP )on 05-14-2024 BUN/CRE 26.6 RATIO High 10-20 [facility] Comment on above: Performed By: #### L 500.2500 ####[facility] [address] [place], [address] CA,Total 7.1 mg/dL Low 8.5-10.1 [facility] Comment on above: Performed By: #### L 500.2500 ####[facility] [address] [place], [address] Chloride [Moles/Vol] 100 mmol/L Normal 98-107 [facility] Comment on above: Performed By: #### L 500.2500 ####[facility] [address] [place], [address] CO2 [Moles/Vol] 24.0 mmol/L Normal 21.0-32.0 [facility] Comment on above: Performed By: #### L 500.2500 ####[facility] [address] [place], [address] Creatinine [Mass/Vol] 1.92 mg/dL High 0.55-1.02 [facility] Comment on above: Result Comment: The validity of the calculated GFR GFRAA in patients over70 years has not been determined. Clinical correlation isessential. Performed By: #### L 500.2500 ####[facility] [address] [place], [address] ECRCL 24.64 ml/min Normal [facility] Comment on above: Performed By: #### L 500.2500 ####[facility] [address] [place], [address] EST GFR - AA 33 mL/min Low >60 [facility] Comment on above: Result Comment: Afri can Croatian GFR Calc Performed By: #### L 500.2500 ####[facility] [address] [place], [address] GAP 9 Normal 5-15 [facility] Comment on above: Performed By: #### L 500.2500 ####[facility] [address] [place], [address] GFR/1.73 sq M.predicted among non-blacks MDRD (S/P/Bld) [Vol rate/Area] 28 mL/min/{1.73_m2} Low >60 [facility] Comment on above: Result Comment: Non- GFR Calc Performed By: #### L 500.2500 ####[facility] [address] [place], [address] Glucose [Mass/Vol] 190 mg/dL High 74-106 [facility] Comment on above: Result Comment: Fast ing Glucose result greater than or equal to 126 mg/dLsuggests DIABETES MELLITUS per A.D.A. criteria. Performed By: #### L 500.2500 ####[facility] [address] [place], [address] Potassium [Moles/Vol] 4.1 mmol/L Normal 3.5-5.1 [facility] Comment on above: Performed By: #### L 500.2500 ####[facility] [address] [place], [address] Sodium [Moles/Vol] 132 mmol/L Low 136-145 [facility] Comment on above: Performed By: #### L 500.2500 ####[facility] [address] [place], [address] Urea nitrogen [Mass/Vol] 51 mg/dL High 7-18 [facility] Comment on above: Performed By: #### L 500.2500 ####[facility] [address] [place], [address] BUN/CRE 23.0 RATIO High 10-20 [facility] Comment on above: Performed By: #### L 500.2500 ####[facility] [address] [place], [address] CA,Total 8.0 mg/dL Low 8.5-10.1 [facility] Comment on above: Performed By: #### L 500.2500 ####[facility] [address] [place], [address] Chloride [Moles/Vol] 95 mmol/L Low 98-107 [facility] Comment on above: Performed By: #### L 500.2500 ####[facility] [address] [place], [address] CO2 [Moles/Vol] 24.0 mmol/L Normal 21.0-32.0 [facility] Comment on above: Performed By: #### L 500.2500 ####[facility] [address] [place], [address] Creatinine [Mass/Vol] 2.09 mg/dL High 0.55-1.02 [facility] Comment on above: Result Comment: The validity of the calculated GFR GFRAA in patients over70 years has not been determined. Clinical correlation isessential. Performed By: #### L 500.2500 ####[facility] [address] [place], [address] ECRCL 22.67 ml/min Normal [facility] Comment on above: Performed By: #### L 500.2500 ####[facility] [address] [place], [address] EST GFR - AA 30 mL/min Low >60 [facility] Comment on above: Result Comment: Afri can Croatian GFR Calc Performed By: #### L 500.2500 ####[facility] [address] [place], [address] GAP 11 Normal 5-15 [facility] Comment on above: Performed By: #### L 500.2500 ####[facility] [address] [place], [address] GFR/1.73 sq M.predicted among non-blacks MDRD (S/P/Bld) [Vol rate/Area] 25 mL/min/{1.73_m2} Low >60 [facility] Comment on above: Result Comment: Non- GFR Calc Performed By: #### L 500.2500 ####[facility] [address] [place], [address] Glucose [Mass/Vol] 287 mg/dL High 74-106 [facility] Comment on above: Result Comment: Gluc ose result greater than or equal to 200 mg/dLsuggests DIABETES MELLITUS per A.D.A. criteria. Performed By: #### L 500.2500 ####[facility] [address] [place], [address] Potassium [Moles/Vol] 4.8 mmol/L Normal 3.5-5.1 [facility] Comment on above: Performed By: #### L 500.2500 ####[facility] [address] [place], [address] Sodium [Moles/Vol] 130 mmol/L Low 136-145 [facility] Comment on above: Performed By: #### L 500.2500 ####[facility] [address] [place], [address] Urea nitrogen [Mass/Vol] 48 mg/dL High 7-18 [facility] Comment on above: Performed By: #### L 500.2500 ####[facility] [address] [place], [address] Bedside Glucoseon 05-14-2024 FINGERSTICK GLU 277 mg/dL High 74-106 [facility] Comment on above: Result Comment: LOURDES GORMAN OF PATIENT CARE PER NURSING PROTOCOL Performed By: #### L 501.080 ####[facility] [address] [place], [address] CBC W/Diff, Automatedon 04-22 SMEAR COMMENT SCANNED Normal [facility] Comment on above: Performed By: #### L 501.2300, L100.0100, L501.5200, L501.9985, L500.4050, L501.9520 ####[facility] [address] [place], [address] Calcium ionizedOrdered By: Emelina Wiggins on 05-14-2024 Calcium ionized 1.00 mmol/L Low 1.09-1.30 [facility] Comprehensive Metabolic Prof ilon 05-14-2024 Albumin [Mass/Vol] 3.2 g/dL Normal 3.2-5.0 [facility] Comment on above: Performed By: #### L 501.2300, L100.0100, L501.5200, L501.9985, L500.4050, L501.9520 ####[facility] [address] [place], [address] Albumin/Globulin [Mass ratio] 0.7 {ratio} Low 0.9-2.4 [facility] Comment on above: Performed By: #### L 501.2300, L100.0100, L501.5200, L501.9985, L500.4050, L501.9520 ####[facility] [address] [place], [address] ALK P 122 U/L High 45-117 [facility] Comment on above: Performed By: #### L 501.2300, L100.0100, L501.5200, L501.9985, L500.4050, L501.9520 ####[facility] [address] [place], [address] ALT [Catalytic activity/Vol] 26 U/L Normal 13-56 [facility] Comment on above: Performed By: #### L 501.2300, L100.0100, L501.5200, L501.9985, L500.4050, L501.9520 ####[facility] [address] [place], [address] AST [Catalytic activity/Vol] 15 U/L Normal 15-37 [facility] Comment on above: Performed By: #### L 501.2300, L100.0100, L501.5200, L501.9985, L500.4050, L501.9520 ####[facility] [address] [place], [address] Bilirubin [Mass/Vol] 0.80 mg/dL Normal 0.20-1.00 [facility] Comment on above: Result Comment: For patients on eltrombopag therapy, use of Dimension [place] TBIL is not recommended. Performed By: #### L 501.2300, L100.0100, L501.5200, L501.9985, L500.4050, L501.9520 ####[facility] [address] [place], [address] BUN/CRE 23.9 RATIO High 10-20 [facility] Comment on above: Performed By: #### L 501.2300, L100.0100, L501.5200, L501.9985, L500.4050, L501.9520 ####[facility] [address] [place], [address] CA,Total 7.5 mg/dL Low 8.5-10.1 [facility] Comment on above: Performed By: #### L 501.2300, L100.0100, L501.5200, L501.9985, L500.4050, L501.9520 ####[facility] [address] [place], [address] Chloride [Moles/Vol] 98 mmol/L Normal 98-107 [facility] Comment on above: Performed By: #### L 501.2300, L100.0100, L501.5200, L501.9985, L500.4050, L501.9520 ####[facility] [address] [place], [address] CO2 [Moles/Vol] 22.0 mmol/L Normal 21.0-32.0 [facility] Comment on above: Performed By: #### L 501.2300, L100.0100, L501.5200, L501.9985, L500.4050, L501.9520 ####[facility] [address] [place], [address] Creatinine [Mass/Vol] 2.05 mg/dL High 0.55-1.02 [facility] Comment on above: Result Comment: The validity of the calculated GFR GFRAA in patients over70 years has not been determined. Clinical correlation isessential. Performed By: #### L 501.2300, L100.0100, L501.5200, L501.9985, L500.4050, L501.9520 ####[facility] [address] [place], [address] ECRCL 23.08 ml/min Normal [facility] Comment on above: Performed By: #### L 501.2300, L100.0100, L501.5200, L501.9985, L500.4050, L501.9520 ####[facility] [address] [place], [address] EST GFR - AA 31 mL/min Low >60 [facility] Comment on above: Result Comment: Afri can Croatian GFR Calc Performed By: #### L 501.2300, L100.0100, L501.5200, L501.9985, L500.4050, L501.9520 ####[facility] [address] [place], [address] GAP 9 Normal 5-15 [facility] Comment on above: Performed By: #### L 501.2300, L100.0100, L501.5200, L501.9985, L500.4050, L501.9520 ####[facility] [address] [place], [address] GFR/1.73 sq M.predicted among non-blacks MDRD (S/P/Bld) [Vol rate/Area] 26 mL/min/{1.73_m2} Low >60 [facility] Comment on above: Result Comment: Non- GFR Calc Performed By: #### L 501.2300, L100.0100, L501.5200, L501.9985, L500.4050, L501.9520 ####[facility] [address] [place], [address] Globulin (S) [Mass/Vol] 4.3 g/dL High 2.2-4.2 [facility] Comment on above: Performed By: #### L 501.2300, L100.0100, L501.5200, L501.9985, L500.4050, L501.9520 ####[facility] [address] [place], [address] Glucose [Mass/Vol] 210 mg/dL High 74-106 [facility] Comment on above: Result Comment: Gluc ose result greater than or equal to 200 mg/dLsuggests DIABETES MELLITUS per A.D.A. criteria. Performed By: #### L 501.2300, L100.0100, L501.5200, L501.9985, L500.4050, L501.9520 ####[facility] [address] [place], [address] Potassium [Moles/Vol] 4.2 mmol/L Normal 3.5-5.1 [facility] Comment on above: Performed By: #### L 501.2300, L100.0100, L501.5200, L501.9985, L500.4050, L501.9520 ####[facility] [address] [place], [address] Sodium [Moles/Vol] 129 mmol/L Low 136-145 [facility] Comment on above: Performed By: #### L 501.2300, L100.0100, L501.5200, L501.9985, L500.4050, L501.9520 ####[facility] [address] [place], [address] T PROT 7.5 g/dL Normal 6.4-8.2 [facility] Comment on above: Performed By: #### L 501.2300, L100.0100, L501.5200, L501.9985, L500.4050, L501.9520 ####[facility] [address] [place], [address] Urea nitrogen [Mass/Vol] 49 mg/dL High 7-18 [facility] Comment on above: Performed By: #### L 501.2300, L100.0100, L501.5200, L501.9985, L500.4050, L501.9520 ####[facility] [address] [place], [address] Consultation - Surgicalon Consultation - Surgical Normal [facility] Creatinine (U) [Mass/Vol]Ord ered By: Jailyn Wiggins on 05-14-2024 Urine creatinine measurement (mass/volume) 170.00 mg/dL NO RANGE EST. [facility] HbA1c (Bld) [Mass fraction]O rdered By: Bassem Vann on 05-14-2024 Hemoglobin A1c percentage 8.8 % High 3.8-5.6 [facility] Hemoglobin A1con 05-14-2024 HbA1c (Bld) [Mass fraction] 8.8 % High 3.8-5.6 [facility] Comment on above: Result Comment: Norm al < 5.7 % Prediabetic 5.7 - 6.4 % Diabetic >or= 6.5 % Please note range changes. Performed By: #### L 501.2300, L100.0100, L501.5200, L501.9985, L500.4050, L501.9520 ####[facility] [address] [place], [address] L501.2276on 05-14-2024 Ionized Calcium 1.00 mmol/L Low 1.09-1.30 [facility] Comment on above: Performed By: #### L 501.2276 ####[facility] [address] [place], [address] Magnesiumon 05-14-2024 Magnesium [Mass/Vol] 1.3 mg/dL Low 1.6-2.6 [facility] Comment on above: Performed By: #### L 501.2300, L100.0100, L501.5200, L501.9985, L500.4050, L501.9520 ####[facility] [address] [place], [address] Osmolality (U) [Osmolality]O rdered By: Bassem Vann on 05-14-2024 Osmolality ur 505 mOsm/KG >50 [facility] Osmolality, Serumon 05-14-20 24 OSMOLALITY,SER 301 mOsm/KG Normal 280-301 [facility] Comment on above: Performed By: #### L 501.7300 ####[facility] [address] [place], [address] Osmolality, Urineon 05-14-20 24 OSMOLALITY,UR 505 mOsm/KG Normal [facility] Comment on above: Result Comment: Norm al Urine Reference Ranges Random: 50 - 1200 mOsm/kg H20 depending on fluid intake Random: >850 mOsm/kg after 12 hour fluid restriction 24 hour: 300 - 900 mOsm/kg H2O Performed By: #### L 501.7400 ####[facility] [address] [place], [address] Osmolality, serumOrdered By: Bassem Vann on 05-14-2024 Osmolality, serum 301 mOsm/KG 280-301 [facility] Phosphoruson 05-14-2024 Phosphate [Mass/Vol] 3.2 mg/dL Normal 2.5-4.9 [facility] Comment on above: Performed By: #### L 501.2300, L100.0100, L501.5200, L501.9985, L500.4050, L501.9520 ####[facility] [address] [place], [address] Sodium urOrdered By: Jailyn Wiggins on 05-14-2024 Sodium ur < 5 mmol/L Not Establ. [facility] TSH QnOrdered By: Bassem santillan on 05-14-2024 Serum or plasma thyroid stimulating hormone (TSH) measurement (units/volume) 0.346 uIU/mL Low 0.358-3.74 0 [facility] Thyroid Stim Hormone (TSH)on 05-14-2024 TSH 0.346 uIU/mL Low 0.358-3.74 0 [facility] Comment on above: Performed By: #### L 501.2300, L100.0100, L501.5200, L501.9985, L500.4050, L501.9520 ####[facility] [address] [place], [address] Urine Sodiumon 05-14-2024 UR NA < 5 Normal Not Establ. [facility] Comment on above: Performed By: #### L 501.5500 ####[facility] [address] [place], [address] Abdomen/Pelvis without Conto n 05-13-2024 Abdomen/Pelvis without Cont Normal [facility] Bacteria LM.HPF (Urine sed) [#/Area]Ordered By: Tru Mayer on 05-13-2024 Urine sediment bacteria count by microscopy (number/high power field) 1+ /hpf None Seen [facility] Base excess Calc (BldV) [Mol es/Vol]Ordered By: Bassem Vann on 05-13-2024 Venous blood base excess measurement -4 mmol/L Low -1.0-3.5 [facility] CBC W/Diff, Automatedon 04-22 Absolute Lymph 0.80 X10 3/uL Low 0.83-4.51 [facility] Comment on above: Performed By: #### L 501.2450, L503.6005, L500.4050, L100.0100 ####[facility] [address] [place], [address] Absolute Neut 10.5 X10 3/uL High 2.0-7.7 [facility] Comment on above: Performed By: #### L 501.2450, L503.6005, L500.4050, L100.0100 ####[facility] [address] [place], [address] Basophils/100 WBC (Bld) 0.4 % Normal 0-1 [facility] Comment on above: Performed By: #### L 501.2450, L503.6005, L500.4050, L100.0100 ####[facility] [address] [place], [address] Eosinophils/100 WBC (Bld) 0.4 % Normal 0-5 [facility] Comment on above: Performed By: #### L 501.2450, L503.6005, L500.4050, L100.0100 ####[facility] [address] [place], [address] Erythrocyte distribution width (RBC) [Ratio] 16.8 % High 11.6-14.6 [facility] Comment on above: Performed By: #### L 501.2450, L503.6005, L500.4050, L100.0100 ####[facility] [address] [place], [address] Hematocrit (Bld) [Volume fraction] 38.7 % Normal 37-47 [facility] Comment on above: Performed By: #### L 501.2450, L503.6005, L500.4050, L100.0100 ####[facility] [address] [place], [address] Hemoglobin (Bld) [Mass/Vol] 12.3 g/dL Normal 12.0-15.0 [facility] Comment on above: Performed By: #### L 501.2450, L503.6005, L500.4050, L100.0100 ####[facility] [address] [place], [address] IG% 0.700 Normal 0.0-0.9 [facility] Comment on above: Result Comment: IG% - Immature Granulocytes (promyelocytes, myelocytes andmetamyelocytes) > 1% indicates that a LEFT SHIFT is Present. Performed By: #### L 501.2450, L503.6005, L500.4050, L100.0100 ####[facility] [address] [place], [address] Lymphocytes/100 WBC (Bld) 6.6 % Low 19-41 [facility] Comment on above: Performed By: #### L 501.2450, L503.6005, L500.4050, L100.0100 ####[facility] [address] [place], [address] MCH (RBC) [Entitic mass] 29.0 pg Normal 27.0-32.0 [facility] Comment on above: Performed By: #### L 501.2450, L503.6005, L500.4050, L100.0100 ####[facility] [address] [place], [address] MCHC (RBC) [Mass/Vol] 31.8 g/dL Low 32-36 [facility] Comment on above: Performed By: #### L 501.2450, L503.6005, L500.4050, L100.0100 ####[facility] [address] [place], [address] MCV (RBC) [Entitic vol] 91.3 fL Normal 81-99 [facility] Comment on above: Performed By: #### L 501.2450, L503.6005, L500.4050, L100.0100 ####[facility] [address] [place], [address] Monocytes/100 WBC (Bld) 5.4 % Normal 0-10 [facility] Comment on above: Performed By: #### L 501.2450, L503.6005, L500.4050, L100.0100 ####[facility] [address] [place], [address] Neutrophils/100 WBC (Bld) 86.5 % High 47-70 [facility] Comment on above: Performed By: #### L 501.2450, L503.6005, L500.4050, L100.0100 ####[facility] [address] [place], [address] Nucleated RBC (Bld) [#/Vol] 0 10*3/uL Normal 0-5 [facility] Comment on above: Performed By: #### L 501.2450, L503.6005, L500.4050, L100.0100 ####[facility] [address] [place], [address] Platelet mean volume (Bld) [Entitic vol] 9.5 fL Normal 6.2-12.0 [facility] Comment on above: Performed By: #### L 501.2450, L503.6005, L500.4050, L100.0100 ####[facility] [address] [place], [address] Platelets (Bld) [#/Vol] 650 10*3/uL High 150-450 [facility] Comment on above: Performed By: #### L 501.2450, L503.6005, L500.4050, L100.0100 ####[facility] [address] [place], [address] RBC (Bld) [#/Vol] 4.24 10*6/uL Normal 4.2-5.4 [facility] Comment on above: Performed By: #### L 501.2450, L503.6005, L500.4050, L100.0100 ####[facility] [address] [place], [address] RDW SD 55.6 fl High 35.1-43.9 [facility] Comment on above: Performed By: #### L 501.2450, L503.6005, L500.4050, L100.0100 ####[facility] [address] [place], [address] WBC (Bld) [#/Vol] 12.1 10*3/uL High 4.4-11.0 [facility] Comment on above: Performed By: #### L 501.2450, L503.6005, L500.4050, L100.0100 ####[facility] [address] [place], [address] CO2 (BldV) [Moles/Vol]Ordere d By: Bassem Vann on 05-13-2024 Venous blood total carbon dioxide measurement 23 mmol/L [facility] CO2 (BldV) [Partial pressure ]Ordered By: Bassem Vann on 05-13-2024 Venous blood partial pressure of carbon dioxide measurement 41.4 mmHg 41-51 [facility] Clarity (U)Ordered By: Tru Mayer on 05-13-2024 Urine clarity Cloudy Clear [facility] Color (U)Ordered By: Tru Gore on 05-13-2024 Urine color determination Yellow Yellow [facility] Comprehensive Metabolic Prof ilon 05-13-2024 Albumin [Mass/Vol] 3.6 g/dL Normal 3.2-5.0 [facility] Comment on above: Performed By: #### L 501.2450, L503.6005, L500.4050, L100.0100 ####[facility] [address] [place], [address] Albumin/Globulin [Mass ratio] 0.7 {ratio} Low 0.9-2.4 [facility] Comment on above: Performed By: #### L 501.2450, L503.6005, L500.4050, L100.0100 ####[facility] [address] [place], [address] ALK P 146 U/L High 45-117 [facility] Comment on above: Performed By: #### L 501.2450, L503.6005, L500.4050, L100.0100 ####[facility] [address] [place], [address] ALT [Catalytic activity/Vol] 29 U/L Normal 13-56 [facility] Comment on above: Performed By: #### L 501.2450, L503.6005, L500.4050, L100.0100 ####[facility] [address] [place], [address] AST [Catalytic activity/Vol] 34 U/L Normal 15-37 [facility] Comment on above: Result Comment: Mode rate Hemolysis, Result may be falsely increased. Performed By: #### L 501.2450, L503.6005, L500.4050, L100.0100 ####[place] [facility] [address] [place], [address] Bilirubin [Mass/Vol] 0.70 mg/dL Normal 0.20-1.00 [facility] Comment on above: Result Comment: For patients on eltrombopag therapy, use of Dimension [place] TBIL is not recommended. Performed By: #### L 501.2450, L503.6005, L500.4050, L100.0100 ####[facility] [address] [place], [address] BUN/CRE 19.0 RATIO Normal 10-20 [facility] Comment on above: Performed By: #### L 501.2450, L503.6005, L500.4050, L100.0100 ####[facility] [address] [place], [address] CA,Total 8.6 mg/dL Normal 8.5-10.1 [facility] Comment on above: Performed By: #### L 501.2450, L503.6005, L500.4050, L100.0100 ####[facility] [address] [place], [address] Chloride [Moles/Vol] 94 mmol/L Low 98-107 [facility] Comment on above: Performed By: #### L 501.2450, L503.6005, L500.4050, L100.0100 ####[facility] [address] [place], [address] CO2 [Moles/Vol] 18.0 mmol/L Low 21.0-32.0 [facility] Comment on above: Performed By: #### L 501.2450, L503.6005, L500.4050, L100.0100 ####[facility] [address] [place], [address] Creatinine [Mass/Vol] 2.37 mg/dL High 0.55-1.02 [facility] Comment on above: Result Comment: The validity of the calculated GFR GFRAA in patients over70 years has not been determined. Clinical correlation isessential. Performed By: #### L 501.2450, L503.6005, L500.4050, L100.0100 ####[facility] [address] [place], [address] ECRCL 19.96 ml/min Normal [facility] Comment on above: Performed By: #### L 501.2450, L503.6005, L500.4050, L100.0100 ####[facility] [address] [place], [address] EST GFR - AA 26 mL/min Low >60 [facility] Comment on above: Result Comment: Afri can Croatian GFR Calc Performed By: #### L 501.2450, L503.6005, L500.4050, L100.0100 ####[facility] [address] [place], [address] GAP 12 Normal 5-15 [facility] Comment on above: Performed By: #### L 501.2450, L503.6005, L500.4050, L100.0100 ####[facility] [address] [place], [address] GFR/1.73 sq M.predicted among non-blacks MDRD (S/P/Bld) [Vol rate/Area] 22 mL/min/{1.73_m2} Low >60 [facility] Comment on above: Result Comment: Non- GFR Calc Performed By: #### L 501.2450, L503.6005, L500.4050, L100.0100 ####[facility] [address] [place], [address] Globulin (S) [Mass/Vol] 5.0 g/dL High 2.2-4.2 [facility] Comment on above: Performed By: #### L 501.2450, L503.6005, L500.4050, L100.0100 ####[facility] [address] [place], [address] Glucose [Mass/Vol] 339 mg/dL High 74-106 [facility] Comment on above: Result Comment: Gluc ose result greater than or equal to 200 mg/dLsuggests DIABETES MELLITUS per A.D.A. criteria. Performed By: #### L 501.2450, L503.6005, L500.4050, L100.0100 ####[facility] [address] [place], [address] Potassium [Moles/Vol] 5.4 mmol/L High 3.5-5.1 [facility] Comment on above: Result Comment: Mode rate Hemolysis, Result may be falsely increased. Performed By: #### L 501.2450, L503.6005, L500.4050, L100.0100 ####[facility] [address] [place], [address] Sodium [Moles/Vol] 124 mmol/L Low 136-145 [facility] Comment on above: Performed By: #### L 501.2450, L503.6005, L500.4050, L100.0100 ####[facility] [address] [place], [address] T PROT 8.6 g/dL High 6.4-8.2 [facility] Comment on above: Performed By: #### L 501.2450, L503.6005, L500.4050, L100.0100 ####[facility] [address] [place], [address] Urea nitrogen [Mass/Vol] 45 mg/dL High 7-18 [facility] Comment on above: Performed By: #### L 501.2450, L503.6005, L500.4050, L100.0100 ####[facility] [address] [place], [place], [address] Emergency Department Summary on 05-13-2024 Emergency Department Summary Normal [facility] Epithelial cells.squamous LM Ql (Urine sed)Ordered By: Tru Mayer on 05-13-2024 Squamous epithelial cells detection in urine sediment by light microscopy 5-10 SEEN /hpf 5-10 [facility] Glucose Ql (U)Ordered By: Refugio Mayer on 05-13-2024 Urine glucose detection 250 mg/dl High Normal [facility] Glucose measurement at bedsi deOrdered By: Bassem Vann on 05-13-2024 Glucose measurement at bedside 277 mg/dL High 74-106 [facility] H AND P Exam - Hospitaliston 05-13-2024 H&P Exam - Hospitalist Normal [facility] Hyaline casts LM.LPF (Urine sed) [#/Area]Ordered By: Tru Mayer on 05-13-2024 Urine sediment hyaline cast count by microscopy (number/low power field) 0-5 SEEN /lpf 0-5 [facility] Lactic Acidon 05-13-2024 Lactate [Moles/Vol] 1.7 mmol/L Normal 0.4-1.9 [facility] Comment on above: Performed By: #### L 503.6005 ####[facility] [address] [place], [place], [address] Lactate [Moles/Vol] 2.4 mmol/L Invalid Interpretation Code 0.4-1.9 [facility] Comment on above: Order Comment: Y Result Comment: Crit ical Result(s) Called at: 18:09:14 05/13/2024 by: GUERRERO. Results read back by Efrain Durham Performed By: #### L 501.2450, L503.6005, L500.4050, L100.0100 ####[facility] [address] [place], [address] Lactic acid measurementOrder ed By: Tru Mayer on 05-13-2024 Lactic acid measurement 1.7 mmol/L 0.4-2.0 [facility] Leukocyte esterase Test stri p Ql (U)Ordered By: Tru Mayer on 05-13-2024 Urine leukocyte esterase detection by dipstick 25 /ul High Negative [facility] Lipaseon 05-13-2024 Lipase [Catalytic activity/Vol] 16 U/L Normal 13-75 [facility] Comment on above: Result Comment: Adam richardson note:LIPASE revised reference range effective 22.New Lipase methodology. Expected to produce lower valuesthan the previous assay method.NEW Reference Range: 13 - 75 U/L Performed By: #### L 501.2450, L503.6005, L500.4050, L100.0100 ####[facility] [address] [place], [address] Lipase measurementOrdered By : Tru Mayer on 05-13-2024 Lipase measurement 16 U/L 13-75 [facility] Mucus LM Ql (Urine sed)Order ed By: Tru Mayer on 05-13-2024 Mucus detection in urine sediment by light microscopy 0 SEEN /hpf [facility] No Panel InformationOrdered By: Bassem Vann on 05-13-2024 FRIEDA [facility] Not entered [facility] Oxygen (BldV) [Partial press ure]Ordered By: Bassem Vann on 05-13-2024 Venous blood partial pressure of oxygen measurement 48 mmHg High 25-40 [facility] Protein Test strip Ql (U)Ord ered By: Tru Mayer on 05-13-2024 Urine protein assay by test strip, semi-quantitative 30 mg/dl High Negative [facility] Specific gravity (U) [Rel de nsity]Ordered By: Tru Mayer on 05-13-2024 Urine specific gravity measurement 1.020 1.002-1.03 0 [facility] Urinalysis, Completeon 05-13 BACTERIA 1+ /hpf Normal None Seen [facility] Comment on above: Order Comment: CLEAN CATCH Performed By: #### L 400.0001 ####[facility] [address] [place], [address] CAST,HYALINE 0-5 SEEN Normal 0-5 [facility] Comment on above: Order Comment: CLEAN CATCH Performed By: #### L 400.0001 ####[facility] [address] [place], [address] EPI,SQUAMOUS 5-10 SEEN Normal 5-10 [facility] Comment on above: Order Comment: CLEAN CATCH Performed By: #### L 400.0001 ####[facility] [address] [facility] [address] RBC 0-5 SEEN Normal 0-5 [facility] Comment on above: Order Comment: CLEAN CATCH Performed By: #### L 400.0001 ####[facility] [address] [facility] [address] WBC 0-5 SEEN Normal 0-5 [facility] Comment on above: Order Comment: CLEAN CATCH Performed By: #### L 400.0001 ####[facility] [address] [place], [address] Mucus Ql (Urine sed) 0 SEEN Normal [facility] Comment on above: Order Comment: CLEAN CATCH Performed By: #### L 400.0001 ####[facility] [address] [facility] [address] Urine blood detectionOrdered By: Tru Mayer on 05-13-2024 Urine blood detection 10 /ul High Negative [facility] Urine total bilirubin detect ion by test stripOrdered By: Tru Mayer on 05-13-2024 Urine total bilirubin detection by test strip Negative Negative [facility] Urobilinogen Ql (U)Ordered B y: Tru Mayer on 05-13-2024 Urine urobilinogen measurement Normal mg/dl Normal [facility] Valproate levelOrdered By: Raghavendra Vann on 05-13-2024 Valproate level 11 ug/mL Low 50-100 [facility] Valproic Acid (Depakene) Lev gerardo 05-13-2024 VALPROIC ACID 11 ug/mL Low 50-100 [facility] Comment on above: Performed By: #### L 501.8100 ####[facility] [address] [place], [address] Venous Blood Gason 4 Blood Gas Type FRIEDA Normal [facility] Comment on above: Performed By: #### L 9000.0810 ####[facility] [address] [place], [address] CO2 [Moles/Vol] 23 mmol/L Normal 23-33 [facility] Comment on above: Performed By: #### L 9000.0810 ####[facility] [address] [place], [address] HCO3 (Bld) [Moles/Vol] 22 mmol/L Normal 22-26 [facility] Comment on above: Performed By: #### L 9000.0810 ####[facility] [address] [place], [address] O2 Delivery Dev Not entered [facility] Comment on above: Performed By: #### L 9000.0810 ####[facility] [address] [place], [address] SITE Not entered [facility] Comment on above: Performed By: #### L 9000.0810 ####[facility] [address] [place], [address] VBG BE -4 mmol/L Low -1.0-3.5 [facility] Comment on above: Performed By: #### L 9000.0810 ####[facility] [address] [place], [address] VBG pCO2 41.4 mmHg Normal 41-51 [facility] Comment on above: Performed By: #### L 9000.0810 ####[facility] [address] [place], [address] VBG pH 7.33 Normal 7.32-7.42 [facility] Comment on above: Performed By: #### L 9000.0810 ####[facility] [address] [facility] [address] VBG PO2 48 mmHg High 25-40 [facility] Comment on above: Performed By: #### L 9000.0810 ####[facility] [address] [place], [address] VBG SO2 80 High 50-70 [facility] Comment on above: Performed By: #### L 9000.0810 ####[facility] [address] [facility] [address] Venous blood bicarbonate joshua surementOrdered By: Bassem Vann on 05-13-2024 Venous blood bicarbonate measurement 22 mmol/L 22-26 [facility] Venous blood oxygen saturati on measurementOrdered By: Bassem Vann on 05-13-2024 Venous blood oxygen saturation measurement 80 % High 50-70 [facility] White blood cell countOrdere d By: Tru Mayer on 05-13-2024 White blood cell count 0-5 SEEN /hpf 0-5 [facility] pH (BldV)Ordered By: Bassem wyatt on 05-13-2024 Venous blood pH measurement 7.33 7.32-7.42 [facility] pH (U)Ordered By: Tru Dale on 05-13-2024 Urine pH 5.0 5.0 - 8.0 [facility] Carotid Duplex Ultrasoundon 04-22-2024 Carotid Duplex Ultrasound Normal [facility] Stress Reporton 04-22-2024 Stress Report Normal [facility] Internal Medicine Office Vis iton 03-25-2024 Internal Medicine Office Visit Normal [facility] Cardiology Visit Reporton Cardiology Visit Report Normal [facility] Comprehensive Metabolic Prof ilon 03-20-2024 Albumin [Mass/Vol] 3.4 g/dL Normal 3.2-5.0 [facility] Comment on above: Performed By: #### L 500.4050, L501.9520, L500.4100, L506.0400 ####[facility] [address] [place], [address] Albumin/Globulin [Mass ratio] 0.8 {ratio} Low 0.9-2.4 [facility] Comment on above: Performed By: #### L 500.4050, L501.9520, L500.4100, L506.0400 ####[facility] [address] [place], [address] ALK P 108 U/L Normal 45-117 [facility] Comment on above: Performed By: #### L 500.4050, L501.9520, L500.4100, L506.0400 ####[facility] [address] [place], [address] ALT [Catalytic activity/Vol] 22 U/L Normal 13-56 [facility] Comment on above: Performed By: #### L 500.4050, L501.9520, L500.4100, L506.0400 ####[facility] [address] [place], [address] AST [Catalytic activity/Vol] 19 U/L Normal 15-37 [facility] Comment on above: Performed By: #### L 500.4050, L501.9520, L500.4100, L506.0400 ####[facility] [address] [place], [address] Bilirubin [Mass/Vol] 0.50 mg/dL Normal 0.20-1.00 [facility] Comment on above: Result Comment: For patients on eltrombopag therapy, use of Dimension [place] TBIL is not recommended. Performed By: #### L 500.4050, L501.9520, L500.4100, L506.0400 ####[facility] [address] [place], [address] BUN/CRE 14.3 RATIO Normal 10-20 [facility] Comment on above: Performed By: #### L 500.4050, L501.9520, L500.4100, L506.0400 ####[facility] [address] [place], [address] CA,Total 8.7 mg/dL Normal 8.5-10.1 [facility] Comment on above: Performed By: #### L 500.4050, L501.9520, L500.4100, L506.0400 ####[facility] [address] [place], [address] Chloride [Moles/Vol] 99 mmol/L Normal 98-107 [facility] Comment on above: Performed By: #### L 500.4050, L501.9520, L500.4100, L506.0400 ####[facility] [address] [place], [address] CO2 [Moles/Vol] 24.0 mmol/L Normal 21.0-32.0 [facility] Comment on above: Performed By: #### L 500.4050, L501.9520, L500.4100, L506.0400 ####[facility] [address] [place], [address] Creatinine [Mass/Vol] 1.12 mg/dL High 0.55-1.02 [facility] Comment on above: Result Comment: The validity of the calculated GFR GFRAA in patients over70 years has not been determined. Clinical correlation isessential. Performed By: #### L 500.4050, L501.9520, L500.4100, L506.0400 ####[facility] [address] [place], [address] EST GFR - AA 62 mL/min Normal >60 [facility] Comment on above: Result Comment: Afri can Croatian GFR Calc Performed By: #### L 500.4050, L501.9520, L500.4100, L506.0400 ####[facility] [address] [place], [address] GAP 8 Normal 5-15 [facility] Comment on above: Performed By: #### L 500.4050, L501.9520, L500.4100, L506.0400 ####[facility] [address] [place], [address] GFR/1.73 sq M.predicted among non-blacks MDRD (S/P/Bld) [Vol rate/Area] 52 mL/min/{1.73_m2} Low >60 [facility] Comment on above: Result Comment: Non- GFR Calc Performed By: #### L 500.4050, L501.9520, L500.4100, L506.0400 ####[facility] [address] [place], [address] Globulin (S) [Mass/Vol] 4.1 g/dL Normal 2.2-4.2 [facility] Comment on above: Performed By: #### L 500.4050, L501.9520, L500.4100, L506.0400 ####[facility] [address] [place], [address] Glucose [Mass/Vol] 154 mg/dL High 74-106 [facility] Comment on above: Result Comment: Fast ing Glucose result greater than or equal to 126 mg/dLsuggests DIABETES MELLITUS per A.D.A. criteria. Performed By: #### L 500.4050, L501.9520, L500.4100, L506.0400 ####[facility] [address] [place], [address] Potassium [Moles/Vol] 4.2 mmol/L Normal 3.5-5.1 [facility] Comment on above: Performed By: #### L 500.4050, L501.9520, L500.4100, L506.0400 ####[facility] [address] [place], [address] Sodium [Moles/Vol] 131 mmol/L Low 136-145 [facility] Comment on above: Performed By: #### L 500.4050, L501.9520, L500.4100, L506.0400 ####[facility] [address] [place], [address] T PROT 7.5 g/dL Normal 6.4-8.2 [facility] Comment on above: Performed By: #### L 500.4050, L501.9520, L500.4100, L506.0400 ####[facility] [address] [place], [address] Urea nitrogen [Mass/Vol] 16 mg/dL Normal 7-18 [facility] Comment on above: Performed By: #### L 500.4050, L501.9520, L500.4100, L506.0400 ####[facility] [address] [place], [address] Endocrinology Visit Reporton 03-20-2024 Endocrinology Visit Report Normal [facility] Lipid Profileon 03-20-2024 Cholesterol [Mass/Vol] 198 mg/dL Normal 200 [facility] Comment on above: Result Comment: <200 mg/dL Desirable 200-240 mg/dL Borderline >240 mg/dL High Risk Performed By: #### L 500.4050, L501.9520, L500.4100, L506.0400 ####[facility] [address] [place], [address] Cholesterol in HDL [Mass/Vol] 54 mg/dL Normal [facility] Comment on above: Result Comment: The drugs N-Acetylcysteine and Metamizole may falselydepress this assay. Reference Range HDL <40 mg/dL Low HDL Cholesterol HDL >or= 60 mg/dL High HDL Cholesterol Performed By: #### L 500.4050, L501.9520, L500.4100, L506.0400 ####[facility] [address] [place], [address] Cholesterol in LDL [Mass/Vol] 65 mg/dL Normal 0-130 [facility] Comment on above: Performed By: #### L 500.4050, L501.9520, L500.4100, L506.0400 ####[facility] [address] [place], [address] Cholesterol in VLDL [Mass/Vol] 79 mg/dL High 5-40 [facility] Comment on above: Performed By: #### L 500.4050, L501.9520, L500.4100, L506.0400 ####[facility] [address] [place], [address] Triglyceride [Mass/Vol] 396 mg/dL High [facility] Comment on above: Result Comment: The drugs N-Acetylcysteine and Metamizole may falselydepress this assay.Serum Triglycerides Reference Interval Normal <150 mg/dL Borderline high 150 - 199 mg/dL High 200 - 499 mg/dL Very High > or = 500 mg/dL Performed By: #### L 500.4050, L501.9520, L500.4100, L506.0400 ####[facility] [address] [place], [address] T4 Free Directon 03-20-2024 T4 FREE DIRECT 1.32 ng/dL Normal 0.76-1.46 [facility] Comment on above: Performed By: #### L 500.4050, L501.9520, L500.4100, L506.0400 ####[facility] [address] [place], [address] Thyroid Stim Hormone (TSH)on 03-20-2024 TSH 3.880 uIU/mL High 0.358-3.74 0 [facility] Comment on above: Performed By: #### L 500.4050, L501.9520, L500.4100, L506.0400 ####[facility] [address] [place], [address] Ankle Brachial Indexon 03-18 Ankle Brachial Index Normal [facility] SCRN MAMM (CAD)W/KALI BILATo n 02-23-2024 SCRN MAMM (CAD)W/KALI BILAT Normal [facility] Internal Medicine Office Vis iton 02-19-2024 Internal Medicine Office Visit Normal [facility] 12 Lead EKGon 01-29-2024 12 Lead EKG Normal [facility] Basic Metabolic Profile (BMP )on 01-29-2024 BUN/CRE 21.3 RATIO High 10-20 [facility] Comment on above: Performed By: #### L 100.0100, L300.3900, L500.2500 ####[facility] [address] [place], [address] CA,Total 9.1 mg/dL Normal 8.5-10.1 [facility] Comment on above: Performed By: #### L 100.0100, L300.3900, L500.2500 ####[facility] [address] [place], [address] Chloride [Moles/Vol] 100 mmol/L Normal 98-107 [facility] Comment on above: Performed By: #### L 100.0100, L300.3900, L500.2500 ####[facility] [address] [place], [address] CO2 [Moles/Vol] 21.0 mmol/L Normal 21.0-32.0 [facility] Comment on above: Performed By: #### L 100.0100, L300.3900, L500.2500 ####[facility] [address] [place], [address] Creatinine [Mass/Vol] 1.36 mg/dL High 0.55-1.02 [facility] Comment on above: Result Comment: The validity of the calculated GFR GFRAA in patients over70 years has not been determined. Clinical correlation isessential. Performed By: #### L 100.0100, L300.3900, L500.2500 ####[facility] [address] [place], [address] ECRCL 35.80 ml/min Normal [facility] Comment on above: Performed By: #### L 100.0100, L300.3900, L500.2500 ####[facility] [address] [place], [address] EST GFR - AA 50 mL/min Low >60 [facility] Comment on above: Result Comment: Afri can Croatian GFR Calc Performed By: #### L 100.0100, L300.3900, L500.2500 ####[facility] [address] [place], [address] GAP 8 Normal 5-15 [facility] Comment on above: Performed By: #### L 100.0100, L300.3900, L500.2500 ####[facility] [address] [place], [address] GFR/1.73 sq M.predicted among non-blacks MDRD (S/P/Bld) [Vol rate/Area] 41 mL/min/{1.73_m2} Low >60 [facility] Comment on above: Result Comment: Non- GFR Calc Performed By: #### L 100.0100, L300.3900, L500.2500 ####[facility] [address] [place], [address] Glucose [Mass/Vol] 76 mg/dL Normal 74-106 [facility] Comment on above: Performed By: #### L 100.0100, L300.3900, L500.2500 ####[facility] [address] [place], [address] Potassium [Moles/Vol] 4.4 mmol/L Normal 3.5-5.1 [facility] Comment on above: Result Comment: Mode rate Hemolysis, Result may be falsely increased. Performed By: #### L 100.0100, L300.3900, L500.2500 ####[facility] [address] [place], [address] Sodium [Moles/Vol] 129 mmol/L Low 136-145 [facility] Comment on above: Performed By: #### L 100.0100, L300.3900, L500.2500 ####[facility] [address] [place], [address] Urea nitrogen [Mass/Vol] 29 mg/dL High 7-18 [facility] Comment on above: Performed By: #### L 100.0100, L300.3900, L500.2500 ####[facility] [address] [place], [address] Brain/Head without Contrasto n 01-29-2024 Brain/Head without Contrast Normal [facility] CBC W/Diff, Automatedon 09-0 Absolute Lymph 1.95 X10 3/uL Normal 0.83-4.51 [facility] Comment on above: Performed By: #### L 100.0100, L300.3900, L500.2500 ####[facility] [address] [place], [address] Absolute Neut 6.7 X10 3/uL Normal 2.0-7.7 [facility] Comment on above: Performed By: #### L 100.0100, L300.3900, L500.2500 ####[facility] [address] [place], [address] Basophils/100 WBC (Bld) 0.6 % Normal 0-1 [facility] Comment on above: Performed By: #### L 100.0100, L300.3900, L500.2500 ####[facility] [address] [place], [address] Eosinophils/100 WBC (Bld) 2.0 % Normal 0-5 [facility] Comment on above: Performed By: #### L 100.0100, L300.3900, L500.2500 ####[facility] [address] [place], [address] Erythrocyte distribution width (RBC) [Ratio] 17.0 % High 11.6-14.6 [facility] Comment on above: Performed By: #### L 100.0100, L300.3900, L500.2500 ####[facility] [address] [place], [address] Hematocrit (Bld) [Volume fraction] 29.3 % Low 37-47 [facility] Comment on above: Performed By: #### L 100.0100, L300.3900, L500.2500 ####[facility] [address] [place], [address] Hemoglobin (Bld) [Mass/Vol] 9.2 g/dL Low 12.0-15.0 [facility] Comment on above: Performed By: #### L 100.0100, L300.3900, L500.2500 ####[facility] [address] [place], [address] IG% 1.300 High 0.0-0.9 [facility] Comment on above: Result Comment: IG% - Immature Granulocytes (promyelocytes, myelocytes andmetamyelocytes) > 1% indicates that a LEFT SHIFT is Present. Performed By: #### L 100.0100, L300.3900, L500.2500 ####[facility] [address] [place], [address] Lymphocytes/100 WBC (Bld) 19.9 % Normal 19-41 [facility] Comment on above: Performed By: #### L 100.0100, L300.3900, L500.2500 ####[facility] [address] [place], [address] MCH (RBC) [Entitic mass] 27.8 pg Normal 27.0-32.0 [facility] Comment on above: Performed By: #### L 100.0100, L300.3900, L500.2500 ####[facility] [address] [place], [address] MCHC (RBC) [Mass/Vol] 31.4 g/dL Low 32-36 [facility] Comment on above: Performed By: #### L 100.0100, L300.3900, L500.2500 ####[facility] [address] [place], [address] MCV (RBC) [Entitic vol] 88.5 fL Normal 81-99 [facility] Comment on above: Performed By: #### L 100.0100, L300.3900, L500.2500 ####[facility] [address] [place], [address] Monocytes/100 WBC (Bld) 8.4 % Normal 0-10 [facility] Comment on above: Performed By: #### L 100.0100, L300.3900, L500.2500 ####[facility] [address] [place], [address] Neutrophils/100 WBC (Bld) 67.8 % Normal 47-70 [facility] Comment on above: Performed By: #### L 100.0100, L300.3900, L500.2500 ####[facility] [address] [place], [address] Nucleated RBC (Bld) [#/Vol] 0 10*3/uL Normal 0-5 [facility] Comment on above: Performed By: #### L 100.0100, L300.3900, L500.2500 ####[facility] [address] [place], [address] Platelet mean volume (Bld) [Entitic vol] 8.8 fL Normal 6.2-12.0 [facility] Comment on above: Performed By: #### L 100.0100, L300.3900, L500.2500 ####[facility] [address] [place], [address] Platelets (Bld) [#/Vol] 454 10*3/uL High 150-450 [facility] Comment on above: Performed By: #### L 100.0100, L300.3900, L500.2500 ####[facility] [address] [place], [address] RBC (Bld) [#/Vol] 3.31 10*6/uL Low 4.2-5.4 [facility] Comment on above: Performed By: #### L 100.0100, L300.3900, L500.2500 ####[facility] [address] [place], [address] RDW SD 55.1 fl High 35.1-43.9 [facility] Comment on above: Performed By: #### L 100.0100, L300.3900, L500.2500 ####[facility] [address] [place], [address] WBC (Bld) [#/Vol] 9.8 10*3/uL Normal 4.4-11.0 [facility] Comment on above: Performed By: #### L 100.0100, L300.3900, L500.2500 ####[facility] [address] [place], [address] Chest 1 View (Portable)on Chest 1 View (Portable) Normal [facility] Emergency Department Summary on 01-29-2024 Emergency Department Summary Normal [facility] Prothrombin Time w/INRon INR Normal [facility] Comment on above: Result Comment: Flower bowen via OM: Ordered Performed By: #### L 100.0100, L300.3900, L500.2500 ####[facility] [address] [place], [address] PROTIME Normal 11.7-14.9 [facility] Comment on above: Result Comment: Flower bowen via OM: Ordered Performed By: #### L 100.0100, L300.3900, L500.2500 ####[facility] [address] [place], [address] Dexa Bone Density Studyon Dexa Bone Density Study Normal [facility] BNP,B-Type NATRIURETIC PEPTI Michael 12-05-2023 Natriuretic peptide B (Bld) [Mass/Vol] 6.9 pg/mL Normal 0-100 [facility] Comment on above: Performed By: #### L 500.2500, L503.6620 ####[facility] [address] [place], [address] Basic Metabolic Profile (BMP )on 12-05-2023 BUN Normal 7-18 [facility] Comment on above: Result Comment: CMP ORDERED BY SETH ROMERO Performed By: #### L 500.2500, L503.6620 ####[facility] [address] [place], [address] BUN/CRE Normal 10-20 [facility] Comment on above: Result Comment: CMP ORDERED BY SETH ROMERO Performed By: #### L 500.2500, L503.6620 ####[facility] [address] [place], [address] CA,Total Normal 8.5-10.1 [facility] Comment on above: Result Comment: CMP ORDERED BY SETH ROMERO Performed By: #### L 500.2500, L503.6620 ####[facility] [address] [place], [address] CL Normal 98-107 [facility] Comment on above: Result Comment: CMP ORDERED BY SETH ROMERO Performed By: #### L 500.2500, L503.6620 ####[facility] [address] [place], [address] CO2 Normal 21.0-32.0 [facility] Comment on above: Result Comment: CMP ORDERED BY SETH ROMERO Performed By: #### L 500.2500, L503.6620 ####[facility] [address] [place], [address] CREAT,SERUM Normal 0.55-1.02 [facility] Comment on above: Result Comment: CMP ORDERED BY SETH ROMERO Performed By: #### L 500.2500, L503.6620 ####[facility] [address] [place], [address] EST GFR Normal >60 [facility] Comment on above: Result Comment: CMP ORDERED BY SETH ROMERO Performed By: #### L 500.2500, L503.6620 ####[facility] [address] [place], [address] EST GFR - AA Normal >60 [facility] Comment on above: Result Comment: CMP ORDERED BY SETH ROMERO Performed By: #### L 500.2500, L503.6620 ####[facility] [address] [place], [address] GAP Normal 5-15 [facility] Comment on above: Result Comment: CMP ORDERED BY SETH ROMERO Performed By: #### L 500.2500, L503.6620 ####[facility] [address] [place], [address] GLU Normal 74-106 [facility] Comment on above: Result Comment: CMP ORDERED BY SETH ROMERO Performed By: #### L 500.2500, L503.6620 ####[facility] [address] [place], [address] Potassium Normal 3.5-5.1 [facility] Comment on above: Result Comment: CMP ORDERED BY SETH ROMERO Performed By: #### L 500.2500, L503.6620 ####[facility] [address] [place], [address] Basic Metabolic Profile (BMP) Normal 136-145 [facility] Comment on above: Result Comment: CMP ORDERED BY SETH ROMERO Performed By: #### L 500.2500, L503.6620 ####[facility] [address] [place], [address] Comprehensive Metabolic Prof ilon 12-05-2023 Albumin [Mass/Vol] 3.4 g/dL Normal 3.2-5.0 [facility] Comment on above: Order Comment: PATIE NT WAS NOT FASTING Performed By: #### L 506.1000, L500.4050, L506.0400, L501.9520, L500.4100 ####[facility] [address] [place], [address] Albumin/Globulin [Mass ratio] 0.8 {ratio} Low 0.9-2.4 [facility] Comment on above: Order Comment: PATIE NT WAS NOT FASTING Performed By: #### L 506.1000, L500.4050, L506.0400, L501.9520, L500.4100 ####[facility] [address] [place], [address] ALK P 111 U/L Normal 45-117 [facility] Comment on above: Order Comment: PATIE NT WAS NOT FASTING Performed By: #### L 506.1000, L500.4050, L506.0400, L501.9520, L500.4100 ####[facility] [address] [place], [address] ALT [Catalytic activity/Vol] 26 U/L Normal 13-56 [facility] Comment on above: Order Comment: PATIE NT WAS NOT FASTING Performed By: #### L 506.1000, L500.4050, L506.0400, L501.9520, L500.4100 ####[facility] [address] [place], [address] AST [Catalytic activity/Vol] 6 U/L Low 15-37 [facility] Comment on above: Order Comment: PATIE NT WAS NOT FASTING Performed By: #### L 506.1000, L500.4050, L506.0400, L501.9520, L500.4100 ####[facility] [address] [place], [address] Bilirubin [Mass/Vol] 0.20 mg/dL Normal 0.20-1.00 [facility] Comment on above: Order Comment: PATIE NT WAS NOT FASTING Result Comment: For patients on eltrombopag therapy, use of Dimension [place] TBIL is not recommended. Performed By: #### L 506.1000, L500.4050, L506.0400, L501.9520, L500.4100 ####[facility] [address] [place], [address] BUN/CRE 16.2 RATIO Normal 10-20 [facility] Comment on above: Order Comment: PATIE NT WAS NOT FASTING Performed By: #### L 506.1000, L500.4050, L506.0400, L501.9520, L500.4100 ####[facility] [address] [place], [address] CA,Total 8.8 mg/dL Normal 8.5-10.1 [facility] Comment on above: Order Comment: PATIE NT WAS NOT FASTING Performed By: #### L 506.1000, L500.4050, L506.0400, L501.9520, L500.4100 ####[facility] [address] [place], [address] Chloride [Moles/Vol] 98 mmol/L Normal 98-107 [facility] Comment on above: Order Comment: PATIE NT WAS NOT FASTING Performed By: #### L 506.1000, L500.4050, L506.0400, L501.9520, L500.4100 ####[facility] [address] [place], [address] CO2 [Moles/Vol] 22.0 mmol/L Normal 21.0-32.0 [facility] Comment on above: Order Comment: PATIE NT WAS NOT FASTING Performed By: #### L 506.1000, L500.4050, L506.0400, L501.9520, L500.4100 ####[facility] [address] [place], [address] Creatinine [Mass/Vol] 1.54 mg/dL High 0.55-1.02 [facility] Comment on above: Order Comment: PATIE NT WAS NOT FASTING Result Comment: The validity of the calculated GFR GFRAA in patients over70 years has not been determined. Clinical correlation isessential. Performed By: #### L 506.1000, L500.4050, L506.0400, L501.9520, L500.4100 ####[facility] [address] [place], [address] EST GFR - AA 43 mL/min Low >60 [facility] Comment on above: Order Comment: PATIE NT WAS NOT FASTING Result Comment: Afri can Croatian GFR Calc Performed By: #### L 506.1000, L500.4050, L506.0400, L501.9520, L500.4100 ####[facility] [address] [place], [address] GAP 11 Normal 5-15 [facility] Comment on above: Order Comment: PATIE NT WAS NOT FASTING Performed By: #### L 506.1000, L500.4050, L506.0400, L501.9520, L500.4100 ####[facility] [address] [place], [address] GFR/1.73 sq M.predicted among non-blacks MDRD (S/P/Bld) [Vol rate/Area] 36 mL/min/{1.73_m2} Low >60 [facility] Comment on above: Order Comment: PATIE NT WAS NOT FASTING Result Comment: Non- GFR Calc Performed By: #### L 506.1000, L500.4050, L506.0400, L501.9520, L500.4100 ####[facility] [address] [place], [address] Globulin (S) [Mass/Vol] 4.3 g/dL High 2.2-4.2 [facility] Comment on above: Order Comment: PATIE NT WAS NOT FASTING Performed By: #### L 506.1000, L500.4050, L506.0400, L501.9520, L500.4100 ####[facility] [address] [place], [address] Glucose [Mass/Vol] 275 mg/dL High 74-106 [facility] Comment on above: Order Comment: PATIE NT WAS NOT FASTING Result Comment: Gluc ose result greater than or equal to 200 mg/dLsuggests DIABETES MELLITUS per A.D.A. criteria. Performed By: #### L 506.1000, L500.4050, L506.0400, L501.9520, L500.4100 ####[facility] [address] [place], [address] Potassium [Moles/Vol] 4.5 mmol/L Normal 3.5-5.1 [facility] Comment on above: Order Comment: PATIE NT WAS NOT FASTING Performed By: #### L 506.1000, L500.4050, L506.0400, L501.9520, L500.4100 ####[facility] [address] [place], [address] Sodium [Moles/Vol] 131 mmol/L Low 136-145 [facility] Comment on above: Order Comment: PATIE NT WAS NOT FASTING Performed By: #### L 506.1000, L500.4050, L506.0400, L501.9520, L500.4100 ####[facility] [address] [place], [address] T PROT 7.7 g/dL Normal 6.4-8.2 [facility] Comment on above: Order Comment: PATIE NT WAS NOT FASTING Performed By: #### L 506.1000, L500.4050, L506.0400, L501.9520, L500.4100 ####[facility] [address] [place], [address] Urea nitrogen [Mass/Vol] 25 mg/dL High 7-18 [facility] Comment on above: Order Comment: PATIE NT WAS NOT FASTING Performed By: #### L 506.1000, L500.4050, L506.0400, L501.9520, L500.4100 ####[facility] [address] [place], [address] Internal Medicine Office Vis iton 12-05-2023 Internal Medicine Office Visit Normal [facility] Lipid Profileon 12-05-2023 Cholesterol [Mass/Vol] 181 mg/dL Normal 200 [facility] Comment on above: Order Comment: PATIE NT WAS NOT FASTING Result Comment: <200 mg/dL Desirable 200-240 mg/dL Borderline >240 mg/dL High Risk Performed By: #### L 506.1000, L500.4050, L506.0400, L501.9520, L500.4100 ####[facility] [address] [place], [address] Cholesterol in HDL [Mass/Vol] 47 mg/dL Normal [facility] Comment on above: Order Comment: PATIE NT WAS NOT FASTING Result Comment: The drugs N-Acetylcysteine and Metamizole may falselydepress this assay. Reference Range HDL <40 mg/dL Low HDL Cholesterol HDL >or= 60 mg/dL High HDL Cholesterol Performed By: #### L 506.1000, L500.4050, L506.0400, L501.9520, L500.4100 ####[facility] [address] [place], [address] LDL TNP Normal 0-130 [facility] Comment on above: Order Comment: PATIE NT WAS NOT FASTING Performed By: #### L 506.1000, L500.4050, L506.0400, L501.9520, L500.4100 ####[facility] [address] [place], [address] Triglyceride [Mass/Vol] 556 mg/dL High [facility] Comment on above: Order Comment: PATIE NT WAS NOT FASTING Result Comment: The drugs N-Acetylcysteine and Metamizole may falselydepress this assay.TRIGLYCERIDE IS GREATER THAN 400 mg/dL.LDL RESULT IS INVALID AND WILL NOT BE REPORTED.Serum Triglycerides Reference Interval Normal <150 mg/dL Borderline high 150 - 199 mg/dL High 200 - 499 mg/dL Very High > or = 500 mg/dL Performed By: #### L 506.1000, L500.4050, L506.0400, L501.9520, L500.4100 ####[facility] [address] [place], [address] VLDL TNP Normal 5-40 [facility] Comment on above: Order Comment: PATIE NT WAS NOT FASTING Performed By: #### L 506.1000, L500.4050, L506.0400, L501.9520, L500.4100 ####[facility] [address] [place], [address] T4 Free Directon 12-05-2023 T4 FREE DIRECT 0.95 ng/dL Normal 0.76-1.46 [facility] Comment on above: Order Comment: PATIE NT WAS NOT FASTING Performed By: #### L 506.1000, L500.4050, L506.0400, L501.9520, L500.4100 ####[facility] [address] [place], [address] Thyroid Stim Hormone (TSH)on 12-05-2023 TSH 7.09 uIU/mL High 0.358-3.74 [facility] Comment on above: Order Comment: PATIE NT WAS NOT FASTING Performed By: #### L 506.1000, L500.4050, L506.0400, L501.9520, L500.4100 ####[facility] [address] [place], [address] Vitamin D,25 Hydroxyon 12-04 Vitamin D 25-OH 30.8 ng/mL Normal [facility] Comment on above: Result Comment: Deborah min D 25(OH) Status Range Deficiency <20 ng/mL (50nmol/L) Insufficiency 20 - 30 ng/mL (50 - 75 nmol/L) Sufficiency 30 - 100 ng/mL (75 - 250 nmol/L) Toxicity >100 ng/mL (>250 nmol/L) Performed By: #### L 506.1000, L500.4050, L506.0400, L501.9520, L500.4100 ####[facility] [address] [place], [address] Absolute lymphocyte countOrd ered By: Denise Uribe on 09-14-2023 Lymphocytes Auto (Unsp spec) [#/Vol] 1.66 10*3/uL 0.83-4.51 [facility] Automated lymphocyte count a s percentage of total leukocytesOrdered By: Denise Jojo on 09-14-2023 Lymphocytes/100 WBC Auto (Unsp spec) 20.1 % 19-41 [facility] Basophil percentageOrdered B y: Denise [place] on 09-14-2023 Basophil percentage 9.6 g/dL 12.0-15.0 [facility] Basophil percentage 153 mg/dL 74-106 [facility] Basophil percentage 7.9 g/dL 6.4-8.2 [facility] Basophil percentage 0.40 mg/dL 0.20-1.00 [facility] Basophil percentage 132 mmol/L 136-145 [facility] Basophil percentage 4.5 mmol/L 3.5-5.1 [facility] Basophil percentage 97 mmol/L 98-107 [facility] Basophils (Bld) [#/Vol] 8.3 10*3/uL 4.4-11.0 [facility] Basophils (Bld) [#/Vol] 5.6 10*3/uL 2.0-7.7 [facility] Basophils/100 WBC (Bld) 68.1 % 47-70 [facility] Basophils/100 WBC (Bld) 7.7 % 0-10 [facility] Basophils/100 WBC (Bld) 2.7 % 0-5 [facility] Basophils/100 WBC (Bld) 0.8 % 0-1 [facility] Determination of erythrocyte mean corpuscular volume (MCV)Ordered By: Denise Uribe on 09-14-2023 MCV (RBC) [Entitic vol] 93.0 fL 81-99 [facility] Erythrocyte distribution wid th ratioOrdered By: Denise Uribe on 09-14-2023 Erythrocyte distribution width (RBC) [Ratio] 17.2 % 11.6-14.6 [facility] Erythrocyte distribution wid th standard deviationOrdered By: Denise Uribe on 09-14-2023 Erythrocyte distribution width (RBC) [Entitic vol] 58.4 fL 35.1-43.9 [facility] Hematocrit Auto (Bld) [Volum e fraction]Ordered By: Denise Uribe on 09-14-2023 Hematocrit (Bld) [Volume fraction] 30.6 % 37-47 [facility] Immature granulocytes/100 WB C Auto (Bld)Ordered By: Denise Uribe on 09-14-2023 Immature granulocytes/100 WBC (Bld) 0.600 % 0.0-0.9 [facility] Iron measurement (mass/mass) Ordered By: Denise Uribe on 09-14-2023 Iron (Unsp spec) [Mass/Mass] 43 ug/dL 50-170 [facility] No Panel InformationOrdered By: Denise Uribe on 09-14-2023 29.2 pg 27.0-32.0 [facility] 31.4 g/dL 32-36 [facility] 507 K/mm3 150-450 [facility] 9.1 fl 6.2-12.0 [facility] 0 % 0-5 [facility] 34 mL/min >60 [facility] 41 mL/min >60 [facility] 21.2 RATIO 10-20 [facility] 4.6 g/dL 2.2-4.2 [facility] 0.7 RATIO 0.9-2.4 [facility] 115 U/L 45-117 [facility] 29 U/L 13-56 [facility] 23.0 mmol/L 21.0-32.0 [facility] 440 ug/dL 250-450 [facility] 33 ng/mL 8-252 [facility] RBC Auto (Bld) [#/Vol]Ordere d By: Denise Uribe on 09-14-2023 RBC (Bld) [#/Vol] 3.29 10*6/uL 4.2-5.4 [facility] Serum or plasma calcium jamey urement (mass/volume)Ordered By: Denise Uribe on 09-14-2023 Calcium [Mass/Vol] 9.1 mg/dL 8.5-10.1 [facility] Serum or plasma creatinine m easurement (mass/volume)Ordered By: Denise Uribe on 09-14-2023 Creatinine [Mass/Vol] 1.60 mg/dL 0.55-1.02 [facility] Serum or plasma iron saturat ion measurement (mass fraction)Ordered By: Denise Uribe on 09-14-2023 Iron saturation [Mass fraction] 9.8 % 15.0-55.0 [facility] Serum or plasma urea nitroge n measurement (mass/volume)Ordered By: Denise Uribe on 09-14-2023 Urea nitrogen [Mass/Vol] 34 mg/dL 7-18 [facility] Thin prep Papanicolaou smear with manual screeningOrdered By: Denise Uribe on 09-14-2023 Thin prep Papanicolaou smear with manual screening 3.3 g/dL 3.2-5.0 [facility] Thin prep Papanicolaou smear with manual screening 16 U/L 15-37 [facility] Thin prep Papanicolaou smear with manual screening 12 5-15 [facility] Basophil percentageOrdered B y: Tobi Riojas on 09-11-2023 Basophil percentage 0 SEEN /hpf 0-5 [facility] Basophil percentage 164 mg/dL 74-106 [facility] Basophil percentage 8.0 g/dL 6.4-8.2 [facility] Basophil percentage 0.50 mg/dL 0.20-1.00 [facility] Basophil percentage 129 mmol/L 136-145 [facility] Basophil percentage 4.6 mmol/L 3.5-5.1 [facility] Basophil percentage 98 mmol/L 98-107 [facility] Bilirubin Test strip Ql (U)O rdered By: Tobi Riojas on 09-11-2023 Bilirubin Ql (U) Negative Negative [facility] Ketones Test strip Ql (U)Ord ered By: Tobiswathi Riojas on 09-11-2023 Ketones Ql (U) Negative Negative [facility] Mucus LM Ql (Urine sed)Order ed By: Tobi Riojas on 09-11-2023 Mucus Ql (Urine sed) 0 SEEN /hpf [facility] Nitrite Test strip Ql (U)Ord ered By: Tobiswathi Riojas on 09-11-2023 Nitrite Ql (U) Negative Negative [facility] No Panel InformationOrdered By: Tobi Riojas on 09-11-2023 0 SEEN /hpf 0-5 [facility] 33 mL/min >60 [facility] 40 mL/min >60 [facility] 29.71 ml/min [facility] 21.1 RATIO 10-20 [facility] 4.6 g/dL 2.2-4.2 [facility] 0.7 RATIO 0.9-2.4 [facility] 122 U/L 45-117 [facility] 25 U/L 13-56 [facility] 21.0 mmol/L 21.0-32.0 [facility] Protein Test strip Ql (U)Ord ered By: Tobi Riojas on 09-11-2023 Protein Ql (U) 15 mg/dl Negative [facility] Serum or plasma calcium jamey urement (mass/volume)Ordered By: Tobi Riojas on 09-11-2023 Calcium [Mass/Vol] 8.7 mg/dL 8.5-10.1 [facility] Serum or plasma creatinine m easurement (mass/volume)Ordered By: Tobi Riojas on 09-11-2023 Creatinine [Mass/Vol] 1.66 mg/dL 0.55-1.02 [facility] Serum or plasma urea nitroge n measurement (mass/volume)Ordered By: Tobi Riojas on 09-11-2023 Urea nitrogen [Mass/Vol] 35 mg/dL 7-18 [facility] Squamous epithelial cells de tection in urine sediment by light microscopyOrdered By: Tobi Riojas on 09-11-2023 Epithelial cells.squamous LM Ql (Urine sed) 0 SEEN /hpf 5-10 [facility] Thin prep Papanicolaou smear with manual screeningOrdered By: Tobi Riojas on 09-11-2023 Thin prep Papanicolaou smear with manual screening 3.4 g/dL 3.2-5.0 [facility] Thin prep Papanicolaou smear with manual screening 29 U/L 15-37 [facility] Thin prep Papanicolaou smear with manual screening 10 5-15 [facility] Urine blood detectionOrdered By: Tobi Riojas on 09-11-2023 RBC Ql (U) Negative Negative [facility] Urine clarityOrdered By: Tobi Riojas on 09-11-2023 Clarity (U) Sl. Cloudy Clear [facility] Urine color determinationOrd ered By: Tobi Riojas on 09-11-2023 Color (U) Straw [facility] Urine glucose detectionOrder ed By: Tobi Riojas on 09-11-2023 Glucose Ql (U) 1000 mg/dl Normal [facility] Urine leukocyte esterase det ection by dipstickOrdered By: Tobi Riojas on 09-11-2023 Leukocyte esterase Test strip Ql (U) Negative Negative [facility] Urine pHOrdered By: Tobi echevarria on 09-11-2023 pH (U) 6.0 [pH] 5.0 - 8.0 [facility] Urine sediment bacteria coun t by microscopy (number/high power field)Ordered By: Tobi Riojas on 09-11-2023 Bacteria LM.HPF (Urine sed) [#/Area] 0 /[HPF] None Seen [facility] Urine specific gravity measu rementOrdered By: Tobiswathi Riojas on 09-11-2023 Specific gravity (U) [Rel density] 1.010 1.002-1.03 0 [facility] Urine urobilinogen measureme ntOrdered By: Tobiswathi Riojas on 09-11-2023 Urobilinogen Ql (U) Normal mg/dl Normal [facility] Absolute lymphocyte countOrd ered By: Denise Uribe on 08-17-2023 Lymphocytes Auto (Unsp spec) [#/Vol] 1.62 10*3/uL 0.83-4.51 [facility] Automated lymphocyte count a s percentage of total leukocytesOrdered By: Denise Uribe on 08-17-2023 Lymphocytes/100 WBC Auto (Unsp spec) 18.1 % 19-41 [facility] Bacteria identified Cx Nom ( U)Ordered By: Denise Uribe on 08-17-2023 Culture, urine Presumptive C albicans [facility] Basophil percentageOrdered B y: Denise Uribe on 08-17-2023 Basophil percentage 0-5 SEEN /hpf 0-5 [facility] Basophil percentage 10.8 g/dL 12.0-15.0 [facility] Basophil percentage 162 mg/dL 74-106 [facility] Basophil percentage 134 mmol/L 136-145 [facility] Basophil percentage 4.2 mmol/L 3.5-5.1 [facility] Basophil percentage 98 mmol/L 98-107 [facility] Basophils (Bld) [#/Vol] 9.0 10*3/uL 4.4-11.0 [facility] Basophils (Bld) [#/Vol] 6.3 10*3/uL 2.0-7.7 [facility] Basophils/100 WBC (Bld) 0.8 % 0-1 [facility] Basophils/100 WBC (Bld) 70.8 % 47-70 [facility] Basophils/100 WBC (Bld) 6.9 % 0-10 [facility] Basophils/100 WBC (Bld) 2.5 % 0-5 [facility] Chloride [Moles/Vol] 98 mmol/L 98-107 [facility] Eosinophils/100 WBC (Bld) 2.5 % 0-5 [facility] Glucose [Mass/Vol] 162 mg/dL 74-106 [facility] Comment on above: Fasting Glucose resu lt greater than or equal to 126 mg/dL suggests DIABETES MELLITUS per A.D.A. criteria. Hemoglobin (Bld) [Mass/Vol] 10.8 g/dL 12.0-15.0 [facility] Monocytes/100 WBC (Bld) 6.9 % 0-10 [facility] Neutrophils (Bld) [#/Vol] 6.3 10*3/uL 2.0-7.7 [facility] Neutrophils/100 WBC (Bld) 70.8 % 47-70 [facility] Potassium [Moles/Vol] 4.2 mmol/L 3.5-5.1 [facility] Sodium [Moles/Vol] 134 mmol/L 136-145 [facility] WBC (Bld) [#/Vol] 9.0 10*3/uL 4.4-11.0 [facility] Bilirubin Test strip Ql (U)O rdered By: Denise Uribe on 08-17-2023 Bilirubin Ql (U) Negative Negative [facility] Culture, urineOrdered By: Jann Uribe on 08-17-2023 Bacteria identified Cx Nom (U) Presumptive C albicans [facility] Determination of erythrocyte mean corpuscular volume (MCV)Ordered By: Denise Uribe on 08-17-2023 MCV (RBC) [Entitic vol] 91.2 fL 81-99 [facility] Erythrocyte distribution wid th ratioOrdered By: Denise Uribe on 08-17-2023 Erythrocyte distribution width (RBC) [Ratio] 16.0 % 11.6-14.6 [facility] Erythrocyte distribution wid th standard deviationOrdered By: Denise Uribe on 08-17-2023 Erythrocyte distribution width (RBC) [Entitic vol] 52.1 fL 35.1-43.9 [facility] Hematocrit Auto (Bld) [Volum e fraction]Ordered By: Denise Uribe on 08-17-2023 Hematocrit (Bld) [Volume fraction] 33.0 % 37-47 [facility] Immature granulocytes/100 WB C Auto (Bld)Ordered By: Denise Uribe on 08-17-2023 Immature granulocytes/100 WBC (Bld) 0.900 % 0.0-0.9 [facility] Comment on above: IG% - Immature Granu locytes (promyelocytes, myelocytes and metamyelocytes) > 1% indicates that a LEFT SHIFT is Present. Ketones Test strip Ql (U)Ord ered By: Denise Uribe on 08-17-2023 Ketones Ql (U) Negative Negative [facility] Laboratory - Chemistry and C hemistry - challengeOrdered By: Denise Uribe on 08-17-2023 CO2 [Moles/Vol] 27.0 mmol/L 21.0-32.0 [facility] Urea nitrogen/Creatinine [Mass ratio] 23.4 mg/mg 10-20 [facility] Laboratory - Hematology and Cell countsOrdered By: Denise Uribe on 08-17-2023 MCH (RBC) [Entitic mass] 29.8 pg 27.0-32.0 [facility] MCHC (RBC) [Mass/Vol] 32.7 g/dL 32-36 [facility] Nucleated RBC/100 WBC (Bld) [Ratio] 0 % 0-5 [facility] Platelet mean volume (Bld) [Entitic vol] 9.2 fL 6.2-12.0 [facility] Platelets (Bld) [#/Vol] 457 10*3/uL 150-450 [facility] Mucus LM Ql (Urine sed)Order ed By: Denise Uribe on 08-17-2023 Mucus Ql (Urine sed) 0 SEEN /hpf [facility] Nitrite Test strip Ql (U)Ord ered By: Denise Uribe on 08-17-2023 Nitrite Ql (U) Negative Negative [facility] No Panel InformationOrdered By: Denise Uribe on 08-17-2023 Estimated GFR (MDRD) Amer 46 mL/min >60 [facility] Comment on above: GFR Calc Estimated GFR (MDRD) Non-Af Amer 38 mL/min >60 [facility] Comment on above: Non- GFR Calc Urine RBC 0 SEEN /hpf 0-5 [facility] 29.8 pg 27.0-32.0 [facility] 32.7 g/dL 32-36 [facility] 457 K/mm3 150-450 [facility] 9.2 fl 6.2-12.0 [facility] 0 % 0-5 [facility] 0 SEEN /hpf 0-5 [facility] 38 mL/min >60 [facility] 46 mL/min >60 [facility] 23.4 RATIO 10-20 [facility] 27.0 mmol/L 21.0-32.0 [facility] Protein Test strip Ql (U)Ord ered By: Denise Uribe on 08-17-2023 Protein Ql (U) Negative Negative [facility] RBC Auto (Bld) [#/Vol]Ordere d By: Denise Uribe on 08-17-2023 RBC (Bld) [#/Vol] 3.62 10*6/uL 4.2-5.4 [facility] Serum or plasma calcium jamey urement (mass/volume)Ordered By: Denise Uribe on 08-17-2023 Calcium [Mass/Vol] 9.3 mg/dL 8.5-10.1 [facility] Serum or plasma creatinine m easurement (mass/volume)Ordered By: Denise Uribe on 08-17-2023 Creatinine [Mass/Vol] 1.45 mg/dL 0.55-1.02 [facility] Comment on above: The validity of the calculated GFR & GFRAA in patients over 70 years has not been determined. Clinical correlation is essential. Serum or plasma urea nitroge n measurement (mass/volume)Ordered By: Denise Uribe on 08-17-2023 Urea nitrogen [Mass/Vol] 34 mg/dL 7-18 [facility] Squamous epithelial cells de tection in urine sediment by light microscopyOrdered By: Denise Uribe on 08-17-2023 Epithelial cells.squamous LM Ql (Urine sed) 0-5 SEEN /hpf 5-10 [facility] Thin prep Papanicolaou smear with manual screeningOrdered By: Denise Uribe on 08-17-2023 Thin prep Papanicolaou smear with manual screening 9 5-15 [facility] Urine blood detectionOrdered By: Denise Uribe on 08-17-2023 RBC Ql (U) Negative Negative [facility] Urine clarityOrdered By: Mina Uribe on 08-17-2023 Clarity (U) Clear Clear [facility] Urine color determinationOrd ered By: Denise Uribe on 08-17-2023 Color (U) Yellow Yellow [facility] Urine glucose detectionOrder ed By: Denise Uribe on 08-17-2023 Glucose Ql (U) 1000 mg/dl Normal [facility] Urine leukocyte esterase det ection by dipstickOrdered By: Denise Uribe on 08-17-2023 Leukocyte esterase Test strip Ql (U) 100 /ul Negative [facility] Urine pHOrdered By: Denise pereira on 08-17-2023 pH (U) 6.5 [pH] 5.0 - 8.0 [facility] Urine sediment bacteria coun t by microscopy (number/high power field)Ordered By: Denise Uribe on 08-17-2023 Bacteria LM.HPF (Urine sed) [#/Area] 0 /[HPF] None Seen [facility] Urine sediment yeast count b y microscopy (number/high powered field)Ordered By: Denise Uribe on 08-17-2023 Yeast LM.HPF (Urine sed) [#/Area] RARE /hpf None Seen [facility] Urine specific gravity measu rementOrdered By: Denise Uribe on 08-17-2023 Specific gravity (U) [Rel density] 1.010 1.002-1.03 0 [facility] Urine urobilinogen measureme ntOrdered By: Denise Uribe on 08-17-2023 Urobilinogen Ql (U) Normal mg/dl Normal [facility] Laboratory - Hematology and Cell countson 05-08-2023 HbA1c (Bld) [Mass fraction] 9.6 % 4.2-6.3 [facility] Basophil percentageOrdered B y: Denise Uribe on 02-16-2023 Chloride [Moles/Vol] 98 mmol/L 98-107 [facility] Glucose [Mass/Vol] 319 mg/dL 74-106 [facility] Comment on above: Glucose result great er than or equal to 200 mg/dLsuggests DIABETES MELLITUS per A.D.A. criteria. Potassium [Moles/Vol] 4.4 mmol/L 3.5-5.1 [facility] Sodium [Moles/Vol] 130 mmol/L 136-145 [facility] WBC (Bld) [#/Vol] 9.3 10*3/uL 4.4-11.0 [facility] Blood erythrocytes count (nu mber/volume)Ordered By: Denise Uribe on 02-16-2023 RBC (Bld) [#/Vol] 4.22 10*6/uL 4.2-5.4 [facility] Blood hemoglobin measurement (mass/volume)Ordered By: Denise Uribe on 02-16-2023 Hemoglobin (Bld) [Mass/Vol] 13.0 g/dL 12.0-15.0 [facility] Blood platelet mean volumeOr dered By: Denise Uribe on 02-16-2023 Platelet mean volume (Bld) [Entitic vol] 9.5 fL 6.2-12.0 [facility] Determination of erythrocyte mean corpuscular volume (MCV)Ordered By: Denise Uribe on 02-16-2023 MCV (RBC) [Entitic vol] 94.1 fL 81-99 [facility] Hematocrit Auto (Bld) [Volum e fraction]Ordered By: Denise Uribe on 02-16-2023 Hematocrit (Bld) [Volume fraction] 39.7 % 37-47 [facility] Iron measurement (mass/mass) Ordered By: Denise Uribe on 02-16-2023 Iron (Unsp spec) [Mass/Mass] 61 ug/dL 50-170 [facility] Laboratory - Chemistry and C hemistry - challengeOrdered By: Denise Uribe on 02-16-2023 CO2 [Moles/Vol] 26.0 mmol/L 21.0-32.0 [facility] Urea nitrogen/Creatinine [Mass ratio] 22.0 mg/mg 10-20 [facility] Laboratory - Hematology and Cell countson 02-16-2023 HbA1c (Bld) [Mass fraction] 9.6 % 4.2-6.3 [facility] Laboratory - Hematology and Cell countsOrdered By: Denise Uribe on 02-16-2023 Erythrocyte distribution width (RBC) [Entitic vol] 51.8 fL 35.1-43.9 [facility] Erythrocyte distribution width (RBC) [Ratio] 15.0 % 11.6-14.6 [facility] MCH (RBC) [Entitic mass] 30.8 pg 27.0-32.0 [facility] MCHC Auto (RBC) [Mass/Vol]Or dered By: Denise Uribe on 02-16-2023 MCHC (RBC) [Mass/Vol] 32.7 g/dL 32-36 [facility] No Panel InformationOrdered By: Denise Uribe on 02-16-2023 Total Iron Binding Capacity 372 ug/dL 250-450 [facility] Urine Microalbumin/Creatinin e Ratio 137.5 mg/g CRE <30 [facility] Vitamin D 25-Hydroxy 55.0 ng/mL [facility] Comment on above: Vitamin D 25(OH) Sta tus Range Deficiency <20 ng/mL (50nmol/L) Insufficiency 20 - 30 ng/mL (50 - 75 nmol/L) Sufficiency 30 - 100 ng/mL (75 - 250 nmol/L) Toxicity >100 ng/mL (>250 nmol/L) Estimated GFR (MDRD) Amer 52 mL/min >60 [facility] Comment on above: GFR Calc Estimated GFR (MDRD) Non-Af Amer 43 mL/min >60 [facility] Comment on above: Non- GFR Calc Platelets bldOrdered By: Mina Uribe on 02-16-2023 Platelets (Bld) [#/Vol] 453 10*3/uL 150-450 [facility] Serum or plasma calcium jamey urement (mass/volume)Ordered By: Denise Uribe on 02-16-2023 Calcium [Mass/Vol] 8.8 mg/dL 8.5-10.1 [facility] Serum or plasma creatinine m easurement (mass/volume)Ordered By: Denise Uribe on 02-16-2023 Creatinine [Mass/Vol] 1.32 mg/dL 0.55-1.02 [facility] Comment on above: The validity of the calculated GFR & GFRAA in patients over 70 years has not been determined. Clinical correlation is essential. Serum or plasma ferritin joshua surement (mass/volume)Ordered By: Denise Uribe on 02-16-2023 Ferritin [Mass/Vol] 42 ng/mL 8-252 [facility] Serum or plasma iron saturat ion measurement (mass fraction)Ordered By: Denise Uribe on 02-16-2023 Iron saturation [Mass fraction] 16.4 % 15.0-55.0 [facility] Serum or plasma urea nitroge n measurement (mass/volume)Ordered By: Denise Uribe on 02-16-2023 Urea nitrogen [Mass/Vol] 29 mg/dL 7-18 [facility] Thin prep Papanicolaou smear with manual screeningOrdered By: Denise Uribe on 02-16-2023 Thin prep Papanicolaou smear with manual screening 60.5 mg/L NO RANGE EST. [facility] Thin prep Papanicolaou smear with manual screening 6 5-15 [facility] Urine creatinine measurement (mass/volume)Ordered By: Denise Uribe on 02-16-2023 Creatinine (U) [Mass/Vol] 44.00 mg/dL NO RANGE EST. [facility] Basophil percentageOrdered B y: Denise Uribe on 12-20-2022 Creatinine [Mass/Vol] 1.3 mg/dL 0.55-1.02 [facility] Laboratory - Chemistry and C hemistry - challengeOrdered By: Denise Uribe on 12-20-2022 GFR/1.73 sq M.predicted among non-blacks MDRD (S/P/Bld) [Vol rate/Area] 44.0000 mL/min/{1.73_m2} >60 [facility] Laboratory - Hematology and Cell countson 11-17-2022 HbA1c (Bld) [Mass fraction] 8.5 % 4.2-6.3 [facility] No Panel Informationon 11-17 8.5 % 4.2-6.3 [facility] Absolute lymphocyte countOrd ered By: Dr. Brar on 09-15-2022 Lymphocytes Auto (Unsp spec) [#/Vol] 1.93 10*3/uL 0.83-4.51 [facility] Basophil percentageOrdered B y: Dr. Brar on 09-15-2022 Basophil percentage 0 SEEN /hpf 0-5 [facility] Basophil percentage 199 mg/dL 74-106 [facility] Basophil percentage 8.1 g/dL 6.4-8.2 [facility] Basophil percentage 0.40 mg/dL 0.20-1.00 [facility] Basophil percentage 134 mmol/L 136-145 [facility] Basophil percentage 3.6 mmol/L 3.5-5.1 [facility] Basophil percentage 105 mmol/L 98-107 [facility] Basophils (Bld) [#/Vol] 15.1 10*3/uL 4.4-11.0 [facility] Basophils (Bld) [#/Vol] 12.1 10*3/uL 2.0-7.7 [facility] Basophils/100 WBC (Bld) 80.4 % 47-70 [facility] Basophils/100 WBC (Bld) 0.3 % 0-1 [facility] Basophil percentageOrdered B y: Jozef Brar on 09-15-2022 Bilirubin [Mass/Vol] 0.40 mg/dL 0.20-1.00 [facility] Comment on above: For patients on eltr ombopag therapy, use of [employer] [place] TBIL is not recommended. Chloride [Moles/Vol] 105 mmol/L 98-107 [facility] Eosinophils/100 WBC (Bld) 0.3 % 0-5 [facility] Glucose [Mass/Vol] 199 mg/dL 74-106 [facility] Comment on above: Fasting Glucose resu lt greater than or equal to 126 mg/dL suggests DIABETES MELLITUS per A.D.A. criteria. Neutrophils (Bld) [#/Vol] 12.1 10*3/uL 2.0-7.7 [facility] Neutrophils/100 WBC (Bld) 80.4 % 47-70 [facility] Potassium [Moles/Vol] 3.6 mmol/L 3.5-5.1 [facility] Protein [Mass/Vol] 8.1 g/dL 6.4-8.2 [facility] Sodium [Moles/Vol] 134 mmol/L 136-145 [facility] WBC (Bld) [#/Vol] 15.1 10*3/uL 4.4-11.0 [facility] Bilirubin Test strip Ql (U)O rdered By: Dr. Brar on 09-15-2022 Bilirubin Ql (U) Negative Negative [facility] Blood erythrocytes count (nu mber/volume)Ordered By: Dr. Brar on 09-15-2022 RBC (Bld) [#/Vol] 3.81 10*6/uL 4.2-5.4 [facility] Blood hemoglobin measurement (mass/volume)Ordered By: Dr. Brar on 09-15-2022 Hemoglobin (Bld) [Mass/Vol] 11.6 g/dL 12.0-15.0 [facility] Blood lymphocytes/100 leukoc ytesOrdered By: Dr. Brar on 09-15-2022 Lymphocytes/100 WBC (Bld) 12.8 % 19-41 [facility] Blood monocytes/100 leukocyt esOrdered By: Dr. Brar on 09-15-2022 Monocytes/100 WBC (Bld) 5.7 % 0-10 [facility] Blood platelet mean volumeOr dered By: Dr. Brar on 09-15-2022 Platelet mean volume (Bld) [Entitic vol] 9.6 fL 6.2-12.0 [facility] Determination of erythrocyte mean corpuscular volume (MCV)Ordered By: Dr. Brar on 09-15-2022 MCV (RBC) [Entitic vol] 95.8 fL 81-99 [facility] Hematocrit Auto (Bld) [Volum e fraction]Ordered By: Dr. Brar on 09-15-2022 Hematocrit (Bld) [Volume fraction] 36.5 % 37-47 [facility] Ketones Test strip Ql (U)Ord ered By: Dr. Brar on 09-15-2022 Ketones Ql (U) 50 mg/dl Negative [facility] Laboratory - Chemistry and C hemistry - challengeOrdered By: Jozef Brar on 09-15-2022 ALP [Catalytic activity/Vol] 93 U/L 45-117 [facility] ALT [Catalytic activity/Vol] 20 U/L 13-56 [facility] CO2 [Moles/Vol] 18.0 mmol/L 21.0-32.0 [facility] Globulin (S) [Mass/Vol] 4.9 g/dL 2.2-4.2 [facility] Lipase [Catalytic activity/Vol] 56 U/L 13-75 [facility] Comment on above: Please note:LIPASE r evised reference range effective 22. New Lipase methodology. Expected to produce lower values than the previous assay method. NEW Reference Range: 13 - 75 U/L Urea nitrogen/Creatinine [Mass ratio] 25.2 mg/mg 10-20 [facility] Laboratory - Hematology and Cell countsOrdered By: Jozef Brar on 09-15-2022 Erythrocyte distribution width (RBC) [Entitic vol] 59.0 fL 35.1-43.9 [facility] Erythrocyte distribution width (RBC) [Ratio] 16.6 % 11.6-14.6 [facility] Immature granulocytes/100 WBC (Bld) 0.500 % 0.0-0.9 [facility] Comment on above: IG% - Immature Granu locytes (promyelocytes, myelocytes and metamyelocytes) > 1% indicates that a LEFT SHIFT is Present. MCH (RBC) [Entitic mass] 30.4 pg 27.0-32.0 [facility] Nucleated RBC/100 WBC (Bld) [Ratio] 0 % 0-5 [facility] MCHC Auto (RBC) [Mass/Vol]Or dered By: Dr. Brar on 09-15-2022 MCHC (RBC) [Mass/Vol] 31.8 g/dL 32-36 [facility] Mucus LM Ql (Urine sed)Order ed By: Dr. Brar on 09-15-2022 Mucus Ql (Urine sed) 0 SEEN /hpf [facility] Nitrite Test strip Ql (U)Ord ered By: Dr. Brar on 09-15-2022 Nitrite Ql (U) Negative Negative [facility] No Panel InformationOrdered By: Jozef Brar on 09-15-2022 Valproic Acid (Depakene) Level 12 ug/mL 50-100 [facility] Estimated Creatinine Clearance Calc 50.87 ml/min [facility] Estimated GFR (MDRD) Amer 66 mL/min >60 [facility] Comment on above: GFR Calc Estimated GFR (MDRD) Non-Af Amer 55 mL/min >60 [facility] Comment on above: Non- GFR Calc No Panel InformationOrdered By: Dr. Brar on 09-15-2022 12 ug/mL 50-100 [facility] 30.4 pg 27.0-32.0 [facility] 16.6 % 11.6-14.6 [facility] 59.0 fl 35.1-43.9 [facility] 0.500 % 0.0-0.9 [facility] 0 % 0-5 [facility] 55 mL/min >60 [facility] 66 mL/min >60 [facility] 50.87 ml/min [facility] 25.2 RATIO 10-20 [facility] 4.9 g/dL 2.2-4.2 [facility] 56 U/L 13-75 [facility] 93 U/L 45-117 [facility] 20 U/L 13-56 [facility] 18.0 mmol/L 21.0-32.0 [facility] Platelets bldOrdered By: Dr. Brar on 09-15-2022 Platelets (Bld) [#/Vol] 490 10*3/uL 150-450 [facility] Protein Test strip Ql (U)Ord ered By: Dr. Brar on 09-15-2022 Protein Ql (U) 100 mg/dl Negative [facility] Serum or plasma albumin jamey urement (mass/volume)Ordered By: Dr. Brar on 09-15-2022 Albumin [Mass/Vol] 3.2 g/dL 3.2-5.0 [facility] Serum or plasma albumin/glob ulin mass ratioOrdered By: Dr. Brar on 09-15-2022 Albumin/Globulin [Mass ratio] 0.7 {ratio} 0.9-2.4 [facility] Serum or plasma calcium jamey urement (mass/volume)Ordered By: Dr. Brar on 09-15-2022 Calcium [Mass/Vol] 9.0 mg/dL 8.5-10.1 [facility] Serum or plasma creatinine m easurement (mass/volume)Ordered By: Dr. Brar on 09-15-2022 Creatinine [Mass/Vol] 1.07 mg/dL 0.55-1.02 [facility] Comment on above: The validity of the calculated GFR & GFRAA in patients over 70 years has not been determined. Clinical correlation is essential. Serum or plasma urea nitroge n measurement (mass/volume)Ordered By: Dr. Brar on 09-15-2022 Urea nitrogen [Mass/Vol] 27 mg/dL 7-18 [facility] Squamous epithelial cells de tection in urine sediment by light microscopyOrdered By: Dr. Brar on 09-15-2022 Epithelial cells.squamous LM Ql (Urine sed) 0-5 SEEN /hpf 5-10 [facility] Thin prep Papanicolaou smear with manual screeningOrdered By: Dr. Brar on 09-15-2022 Thin prep Papanicolaou smear with manual screening 14 U/L 15-37 [facility] Thin prep Papanicolaou smear with manual screening 11 5-15 [facility] Urine blood detectionOrdered By: Dr. Brar on 09-15-2022 RBC Ql (U) 25 /ul Negative [facility] RBC Ql (U) 0 SEEN /hpf 0-5 [facility] Urine clarityOrdered By: Dr. Brar on 09-15-2022 Clarity (U) Clear Clear [facility] Urine color determinationOrd ered By: Dr. Brar on 09-15-2022 Color (U) Yellow Yellow [facility] Urine glucose detectionOrder ed By: Dr. Brar on 09-15-2022 Glucose Ql (U) 1000 mg/dl Normal [facility] Urine leukocyte esterase det ection by dipstickOrdered By: Dr. Brar on 09-15-2022 Leukocyte esterase Test strip Ql (U) Negative Negative [facility] Urine pHOrdered By: Dr. Ty jones on 09-15-2022 pH (U) 5.0 [pH] 5.0 - 8.0 [facility] Urine sediment bacteria coun t by microscopy (number/high power field)Ordered By: Dr. Brar on 09-15-2022 Bacteria LM.HPF (Urine sed) [#/Area] 0 /[HPF] None Seen [facility] Urine sediment yeast count b y microscopy (number/high powered field)Ordered By: Dr. Brar on 09-15-2022 Yeast LM.HPF (Urine sed) [#/Area] 2 /[HPF] None Seen [facility] Urine specific gravity measu rementOrdered By: Dr. Brar on 09-15-2022 Specific gravity (U) [Rel density] 1.020 1.002-1.03 0 [facility] Urobilinogen Auto test strip Ql (U)Ordered By: Dr. Brar on 09-15-2022 Urobilinogen Ql (U) Normal mg/dl Normal [facility] Absolute lymphocyte countOrd ered By: Devi Delgado on 08-17-2022 Lymphocytes Auto (Unsp spec) [#/Vol] 2.04 10*3/uL 0.83-4.51 [facility] Basophil percentageOrdered B y: Devi Delgado on 08-17-2022 Basophil percentage 3.5 mg/dL 2.5-4.9 [facility] Basophil percentage 222 mg/dL 74-106 [facility] Basophil percentage 7.6 g/dL 6.4-8.2 [facility] Basophil percentage 0.20 mg/dL 0.20-1.00 [facility] Basophil percentage 167 mg/dL <200 [facility] Basophil percentage 306 mg/dL <199 [facility] Basophil percentage 135 mmol/L 136-145 [facility] Basophil percentage 4.5 mmol/L 3.5-5.1 [facility] Basophil percentage 102 mmol/L 98-107 [facility] Basophils (Bld) [#/Vol] 10.3 10*3/uL 4.4-11.0 [facility] Basophils (Bld) [#/Vol] 7.0 10*3/uL 2.0-7.7 [facility] Basophils/100 WBC (Bld) 0.8 % 0-1 [facility] Basophils/100 WBC (Bld) 67.7 % 47-70 [facility] Basophils/100 WBC (Bld) 1.7 % 0-5 [facility] Bilirubin [Mass/Vol] 0.20 mg/dL 0.20-1.00 [facility] Comment on above: For patients on eltr ombopag therapy, use of Dimension [place] TBIL is not recommended. Chloride [Moles/Vol] 102 mmol/L 98-107 [facility] Cholesterol [Mass/Vol] 167 mg/dL <200 [facility] Comment on above: <200 mg/dL Desirable 200-240 mg/dL Borderline >240 mg/dL High Risk Eosinophils/100 WBC (Bld) 1.7 % 0-5 [facility] Glucose [Mass/Vol] 222 mg/dL 74-106 [facility] Comment on above: Glucose result great er than or equal to 200 mg/dLsuggests DIABETES MELLITUS per A.D.A. criteria. Neutrophils (Bld) [#/Vol] 7.0 10*3/uL 2.0-7.7 [facility] Neutrophils/100 WBC (Bld) 67.7 % 47-70 [facility] Potassium [Moles/Vol] 4.5 mmol/L 3.5-5.1 [facility] Protein [Mass/Vol] 7.6 g/dL 6.4-8.2 [facility] Sodium [Moles/Vol] 135 mmol/L 136-145 [facility] Triglyceride [Mass/Vol] 306 mg/dL <199 [facility] Comment on above: The drugs N-Acetylcy steine and Metamizole may falsely depress this assay.Serum Triglycerides Reference Interval Normal <150 mg/dL Borderline high 150 - 199 mg/dL High 200 - 499 mg/dL Very High > or = 500 mg/dL WBC (Bld) [#/Vol] 10.3 10*3/uL 4.4-11.0 [facility] Blood erythrocytes count (nu mber/volume)Ordered By: Devi Delgado on 08-17-2022 RBC (Bld) [#/Vol] 3.54 10*6/uL 4.2-5.4 [facility] Blood hemoglobin measurement (mass/volume)Ordered By: Devi Delgado on 08-17-2022 Hemoglobin (Bld) [Mass/Vol] 10.5 g/dL 12.0-15.0 [facility] Blood lymphocytes/100 leukoc ytesOrdered By: Devi Delgado on 08-17-2022 Lymphocytes/100 WBC (Bld) 19.8 % 19-41 [facility] Blood monocytes/100 leukocyt esOrdered By: Devi Delgado on 08-17-2022 Monocytes/100 WBC (Bld) 8.3 % 0-10 [facility] Blood platelet mean volumeOr dered By: Devi Delgado on 08-17-2022 Platelet mean volume (Bld) [Entitic vol] 9.2 fL 6.2-12.0 [facility] Determination of erythrocyte mean corpuscular volume (MCV)Ordered By: Devi Delgado on 08-17-2022 MCV (RBC) [Entitic vol] 96.6 fL 81-99 [facility] Direct bilirubinOrdered By: Devi Delgado on 08-17-2022 Bilirubin.direct [Mass/Vol] 0.10 mg/dL 0.00-0.30 [facility] Hematocrit Auto (Bld) [Volum e fraction]Ordered By: Devi Delgado on 08-17-2022 Hematocrit (Bld) [Volume fraction] 34.2 % 37-47 [facility] Laboratory - Chemistry and C hemistry - challengeOrdered By: Devi Delgado on 08-17-2022 ALP [Catalytic activity/Vol] 107 U/L 45-117 [facility] ALT [Catalytic activity/Vol] 30 U/L 13-56 [facility] CO2 [Moles/Vol] 21.0 mmol/L 21.0-32.0 [facility] Globulin (S) [Mass/Vol] 4.4 g/dL 2.2-4.2 [facility] Urea nitrogen/Creatinine [Mass ratio] 20.9 mg/mg 10-20 [facility] Laboratory - Hematology and Cell countsOrdered By: Devi Delgado on 08-17-2022 Erythrocyte distribution width (RBC) [Entitic vol] 58.4 fL 35.1-43.9 [facility] Erythrocyte distribution width (RBC) [Ratio] 16.6 % 11.6-14.6 [facility] Immature granulocytes/100 WBC (Bld) 1.700 % 0.0-0.9 [facility] Comment on above: IG% - Immature Granu locytes (promyelocytes, myelocytes and metamyelocytes) > 1% indicates that a LEFT SHIFT is Present. MCH (RBC) [Entitic mass] 29.7 pg 27.0-32.0 [facility] Nucleated RBC/100 WBC (Bld) [Ratio] 0 % 0-5 [facility] Laboratory - Hematology and Cell countson 08-17-2022 HbA1c (Bld) [Mass fraction] 7.7 % 4.2-6.3 [facility] MCHC Auto (RBC) [Mass/Vol]Or dered By: Devi Delgado on 08-17-2022 MCHC (RBC) [Mass/Vol] 30.7 g/dL 32-36 [facility] No Panel InformationOrdered By: Devi Delgado on 08-17-2022 Estimated GFR (MDRD) Amer 49 mL/min >60 [facility] Comment on above: GFR Calc Estimated GFR (MDRD) Non-Af Amer 40 mL/min >60 [facility] Comment on above: Non- GFR Calc 29.7 pg 27.0-32.0 [facility] 16.6 % 11.6-14.6 [facility] 58.4 fl 35.1-43.9 [facility] 1.700 % 0.0-0.9 [facility] 0 % 0-5 [facility] 40 mL/min >60 [facility] 49 mL/min >60 [facility] 20.9 RATIO 10-20 [facility] 4.4 g/dL 2.2-4.2 [facility] 107 U/L 45-117 [facility] 30 U/L 13-56 [facility] 21.0 mmol/L 21.0-32.0 [facility] No Panel Informationon 08-17 7.7 % 4.2-6.3 [facility] Platelets bldOrdered By: Nelida Delgado on 08-17-2022 Platelets (Bld) [#/Vol] 606 10*3/uL 150-450 [facility] Serum or plasma albumin jamey urement (mass/volume)Ordered By: Devi Delgado on 08-17-2022 Albumin [Mass/Vol] 3.2 g/dL 3.2-5.0 [facility] Serum or plasma albumin/glob ulin mass ratioOrdered By: Devi Delgado on 08-17-2022 Albumin/Globulin [Mass ratio] 0.7 {ratio} 0.9-2.4 [facility] Serum or plasma calcium jamey urement (mass/volume)Ordered By: Devi Delgado on 08-17-2022 Calcium [Mass/Vol] 8.8 mg/dL 8.5-10.1 [facility] Serum or plasma cholesterol in HDL measurement (mass/volume)Ordered By: Devi Delgado on 08-17-2022 Cholesterol in HDL [Mass/Vol] 41 mg/dL >40 [facility] Comment on above: The drugs N-Acetylcy steine and Metamizole may falsely depress this assay. Reference Range HDL <40 mg/dL Low HDL Cholesterol HDL >or= 60 mg/dL High HDL Cholesterol Serum or plasma cholesterol in VLDL measurement (mass/volume)Ordered By: Devi Delgado on 08-17-2022 Cholesterol in VLDL [Mass/Vol] 61 mg/dL 5-40 [facility] Serum or plasma creatinine m easurement (mass/volume)Ordered By: Devi Delgado on 08-17-2022 Creatinine [Mass/Vol] 1.39 mg/dL 0.55-1.02 [facility] Comment on above: The validity of the calculated GFR & GFRAA in patients over 70 years has not been determined. Clinical correlation is essential. Serum or plasma low density lipoprotein (LDL) cholesterol measurement (mass/volume)Ordered By: Devi Delgado on 08-17-2022 Cholesterol in LDL [Mass/Vol] 65 mg/dL 0-130 [facility] Serum or plasma urea nitroge n measurement (mass/volume)Ordered By: Devi Delgado on 08-17-2022 Urea nitrogen [Mass/Vol] 29 mg/dL 7-18 [facility] Thin prep Papanicolaou smear with manual screeningOrdered By: Devi Delgado on 08-17-2022 Thin prep Papanicolaou smear with manual screening 13 U/L 15-37 [facility] Thin prep Papanicolaou smear with manual screening 12 5-15 [facility] CBC AND DIFFERENTIALon 08-15 % AUTOMATED IMMATURE GRAN 4.0 % High 0.0 - 0.9 [facility] Comment on above: Result Comment: Minerva ture Granulocyte Count (IG) includes promyelocytes, myelocytes and metamyelocytes but does not include bands. Percent differential counts (%) should be interpreted in the context of the absolute cell counts (cells/L). Performed By: #### C BCDF #### [address] [address] Basophils (Bld) [#/Vol] 0.12 10*3/uL High 0.00 - 0.10 [facility] Comment on above: Performed By: #### C BCDF #### [address] [address] Basophils/100 WBC (Bld) 0.8 % Normal 0.0 - 2.0 [facility] Comment on above: Performed By: #### C BCDF #### [address] [address] Eosinophils (Bld) [#/Vol] 0.17 10*3/uL Normal 0.00 - 0.70 [facility] Comment on above: Performed By: #### C BCDF #### [place] [id number] Eosinophils/100 WBC (Bld) 1.1 % Normal 0.0 - 6.0 [facility] Comment on above: Performed By: #### C BCDF #### [address] [address] Erythrocyte distribution width (RBC) [Ratio] 16.0 % High 11.5 - 14.5 [facility] Comment on above: Performed By: #### C BCDF #### [address] [address] Hematocrit (Bld) [Volume fraction] 35.8 % Low 36.0 - 46.0 [facility] Comment on above: Performed By: #### C BCDF #### [address] [address] Hemoglobin (Bld) [Mass/Vol] 11.5 g/dL Low 12.0 - 16.0 [facility] Comment on above: Performed By: #### C BCDF #### [address] [address] Lymphocytes (Bld) [#/Vol] 2.19 10*3/uL Normal 1.20 - 4.80 [facility] Comment on above: Performed By: #### C BCDF #### [address] [address] Lymphocytes/100 WBC (Bld) 14.8 % Normal 13.0 - 44.0 [facility] Comment on above: Performed By: #### C BCDF #### [address] [address] MCHC (RBC) [Mass/Vol] 32.1 g/dL Normal 32.0 - 36.0 [facility] Comment on above: Performed By: #### C BCDF #### [address] [address] MCV (RBC) [Entitic vol] 93 fL Normal 80 - 100 [facility] Comment on above: Performed By: #### C BCDF #### [address] [address] Monocytes (Bld) [#/Vol] 0.81 10*3/uL Normal 0.10 - 1.00 [facility] Comment on above: Performed By: #### C BCDF #### [address] [address] Monocytes/100 WBC (Bld) 5.5 % Normal 2.0 - 10.0 [facility] Comment on above: Performed By: #### C BCDF #### [address] [address] Neutrophils (Bld) [#/Vol] 10.96 10*3/uL High 1.20 - 7.70 [facility] Comment on above: Result Comment: Perc ent differential counts (%) should be interpreted in the context of the absolute cell counts (cells/L). Performed By: #### C BCDF #### [address] [address] Neutrophils/100 WBC (Bld) 73.8 % Normal 40.0 - 80.0 [facility] Comment on above: Performed By: #### C BCDF #### [address] [address] Platelets (Bld) [#/Vol] 637 10*3/uL High 150 - 450 [facility] Comment on above: Performed By: #### C BCDF #### [address] [address] RBC 3.87 x10E12/L Low 4.00 - 5.20 [facility] Comment on above: Performed By: #### C BCDF #### [address] [address] WBC (Bld) [#/Vol] 14.8 10*3/uL High 4.4 - 11.3 [facility] Comment on above: Performed By: #### C BCDF #### [address] [address] CHEST 1 VIEWon 08-15-2022 CHEST 1 VIEW Patient Name: LETI DELA CRUZ STUDY: CHEST 1 VIEW; 08/15/2022 12:50 pm INDICATION: weakness, n/v/d . COMPARISON: 10/24/2018 ACCESSION NUMBER(S): [id number] ORDERING CLINICIAN: MAYRA BRIDGES FINDINGS: The lungs are clear without apparent pleural effusion. Unremarkable cardiomediastinal silhouette. Aortic atherosclerosis with slight tortuosity. No pulmonary vascular congestion. IMPRESSION: No active disease in the chest. Electronically signed by: ALESSANDRO DOMINGO MD Normal [facility] CLOST DIFF. TOXIN, PCRon CLOST.DIFF NAP 1 STRAIN (Presumptive) Canceled Normal Not Detected [facility] Comment on above: Order Comment: TEST CLOST DIFF. TOXIN, PCR WAS CANCELLED, 08/15/2022 18:51 nsr. Performed By: #### C DTPC #### [facility] [address] [place] [address] CLOST.DIFF.TOXIN,PCR Canceled Normal [facility] Comment on above: Order Comment: TEST CLOST DIFF. TOXIN, PCR WAS CANCELLED, 08/15/2022 18:51 nsr. Result Comment: This assay detects the presence of the tcdB (toxin B) gene via DNA amplification, and results should be interpreted in the context of the patients history and clinical findings. This test cannot be performed on formed stools or used as a test of cure, and should not be performed more than once per 7 days. Performed By: #### C DTPC #### [facility] [address] [place] [address] Lab Specimen Source Stool Normal [facility] Comment on above: Order Comment: TEST CLOST DIFF. TOXIN, PCR WAS CANCELLED, 08/15/2022 18:51 nsr. Performed By: #### C DTPC #### [facility] [address] [place] [address] COMPREHENSIVE PANELon 2022 Albumin [Mass/Vol] 3.8 g/dL Normal 3.4 - 5.0 [facility] Comment on above: Performed By: #### U AMIC #### [address] [address] ALP [Catalytic activity/Vol] 116 U/L Normal 33 - 136 [facility] Comment on above: Performed By: #### U AMIC #### [address] [address] ALT [Catalytic activity/Vol] 20 U/L Normal 7 - 45 [facility] Comment on above: Result Comment: Milagros ents treated with Sulfasalazine may generate falsely decreased results for ALT. Performed By: #### U AMIC #### [address] [address] Anion gap [Moles/Vol] 15 mmol/L Normal 10 - 20 [facility] Comment on above: Performed By: #### U AMIC #### [address] [address] AST [Catalytic activity/Vol] 15 U/L Normal 9 - 39 [facility] Comment on above: Performed By: #### U AMIC #### [address] [address] Bilirubin [Mass/Vol] 0.5 mg/dL Normal 0.0 - 1.2 [facility] Comment on above: Performed By: #### U AMIC #### [address] [place] [address] Calcium [Mass/Vol] 8.5 mg/dL Low 8.6 - 10.3 [facility] Comment on above: Performed By: #### U AMIC #### [address] [address] Chloride [Moles/Vol] 103 mmol/L Normal 98 - 107 [facility] Comment on above: Performed By: #### U AMIC #### [address] [address] Creatinine [Mass/Vol] 0.93 mg/dL Normal 0.50 - 1.05 [facility] Comment on above: Performed By: #### U AMIC #### [address] [address] GFR/1.73 sq M.predicted among non-blacks MDRD (S/P/Bld) [Vol rate/Area] 68 mL/min/{1.73_m2} Normal >90 [facility] Comment on above: Result Comment: CALC ULATIONS OF ESTIMATED GFR ARE PERFORMED USING THE 2020 CKD-EPI STUDY REFIT EQUATION WITHOUT THE RACE VARIABLE FOR THE IDMS-TRACEABLE CREATININE METHODS. https://jasn.asnjournals.org/content//ASN.44996 [address] Performed By: #### U AMIC #### [address] [address] Glucose [Mass/Vol] 131 mg/dL High 74 - 99 [facility] Comment on above: Performed By: #### U AMIC #### [address] [address] HCO3 (Bld) [Moles/Vol] 18 mmol/L Low 21 - 32 [facility] Comment on above: Performed By: #### U AMIC #### [address] [address] Potassium [Moles/Vol] 4.5 mmol/L Normal 3.5 - 5.3 [facility] Comment on above: Performed By: #### U AMIC #### [address] [address] Protein [Mass/Vol] 7.5 g/dL Normal 6.4 - 8.2 [facility] Comment on above: Performed By: #### U AMIC #### [place] [address] [place] [address] Sodium [Moles/Vol] 131 mmol/L Low 136 - 145 [facility] Comment on above: Performed By: #### U AMIC #### [place] [address] [place] [address] Urea nitrogen [Mass/Vol] 19 mg/dL Normal 6 - 23 [facility] Comment on above: Performed By: #### U AMIC #### [place] [address] [place] [address] CT ABDOMEN AND PELVIS W IV C [facility] 08-15-2022 CT ABDOMEN AND PELVIS W IV CONTRAST Patient Name: LETI DELA CRUZ STUDY: CT ABDOMEN AND PELVIS W IV CONTRAST; 08/15/2022 3:17 pm INDICATION: 67 y/o F with diffuse abd pain, recent pancreatitis . LIMITATIONS: None. ACCESSION NUMBER(S): [id number] ORDERING CLINICIAN: MAYRA BRIDGES TECHNIQUE: After the administration of oral water and IV nonionic contrast, spiral axial images were obtained from the xiphoid down through the symphysis pubis. Sagittal and coronal reconstruction images were generated. Bone, mediastinal, lung, and liver windows were reviewed. OMNIPAQUE 350 [id number] milliliter COMPARISON: Previous exam is from 03/24/2016.. FINDINGS: LUNG BASES: No mass or pneumonia or pleural effusion in either lung base.. Cardiomegaly. Prominent cardiac fat pads. No pericardial effusion. Small hiatal hernia. Stable calcified granuloma in the posterior left costophrenic sulcus measuring 12 mm in diameter. Linear band of density across the mid left lower lobe. LIVER: No hepatomegaly. Liver density was within the limits of normal. No liver lesion evident in this exam. GALLBLADDER: Surgically absent. BILE DUCTS: No intrahepatic biliary ductal dilatation. There is mild common bile duct dilatation up to 9 mm in diameter, tapering to normal in the pancreatic head.. SPLEEN: No splenomegaly or splenic mass.. PANCREAS: No pancreatic mass or inflammation, or ductal dilatation. KIDNEYS/ADRENALS: No adrenal mass or enlargement. There is an 11 mm diameter cyst anteriorly in the mid to lower pole cortex of the right kidney on image 69. There is a lateral midpole left renal cyst measuring 8 mm on image 61 and a posterior midpole left renal cyst measuring 6 mm on image 58. There is bilateral renal cortical lobulation. No calcified stone, hydronephrosis, mass, or perinephric edema in either kidney. No ureteral stone or dilatation. BLADDER/PELVIS: Urinary bladder was grossly intact. Previous hysterectomy. No gross adnexal mass. GREAT VESSELS/RETROPERITONEUM: Advanced calcified and noncalcified mural plaque in the abdominal aorta down through the iliac vessels. No abdominal aortic aneurysm. The IVC was intact. Stable 10 mm peripancreatic lymph node on image 37 and stable 9 mm precaval lymph node on image 40. These are most likely reactive. No suspicious retroperitoneal adenopathy. No suspicious mesenteric adenopathy. No suspicious pelvic or inguinal adenopathy. PERITONEUM: No ascites. No pneumoperitoneum. No peritoneal or mesenteric mass or inflammation. BOWEL: The stomach was grossly intact. There was no small bowel dilatation or small bowel wall thickening. No small-bowel obstruction. Scattered left colon and sigmoid diverticulosis. Mild retained colonic stool and gas. There was no colonic wall thickening or large bowel obstruction. No edema adjacent to the colon. The cecal appendix could not be identified. BONES: No destructive lytic or blastic bone lesion. No lumbar compression fracture or listhesis. Moderate to advanced disc space loss with hoij-fs-[id number] endplate osteophytosis at L5-S1, unchanged. Mild bilateral hip joint space narrowing with spur formation. Interfacet hypertrophic arthritic changes from L3-4 through L5-S1. Mild sclerotic arthritic changes in both SI joints. ABDOMINAL WALL: Unremarkable. IMPRESSION: Cardiomegaly. Posterior left basilar calcified granuloma, unchanged. Linear band of scarring versus atelectasis in the left lower lobe. Small hiatal hernia. Previous cholecystectomy. Mild common bile duct dilatation as described, most likely reflecting the post cholecystectomy state. However, consider laboratory correlation with liver function tests. Previous hepatomegaly has resolved. Previous fatty infiltration throughout the liver appears to have resolved as well. Advanced aortoiliac calcifications. Left colon and sigmoid diverticulosis without acute associated inflammation. 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 Electronically signed by: SANDY GALLAGHER MD [facility] Complete Blood Count + Diffe rentialon 03-27-2023 Basophils/100 WBC (Bld) 0.8 % 0.0 - 2.0 [facility] Work Phone: [phone] Erythrocyte distribution width (RBC) [Ratio] 16.0 % above high threshold See Below [facility] Work Phone: [phone] Comment on above: Reference Range: 11. 5 - 14.5 Hematocrit (Bld) [Volume fraction] 35.8 % below low threshold See Below [facility] Work Phone: [phone] Comment on above: Reference Range: 36. 0 - 46.0 Hemoglobin (Bld) [Mass/Vol] 11.5 g/dL below low threshold See Below [facility] Work Phone: [phone] Comment on above: Reference Range: 12. 0 - 16.0 Lymphocytes/100 WBC (Bld) 14.8 % See Below [facility] Work Phone: [phone] Comment on above: Reference Range: 13. 0 - 44.0 MCHC (RBC) [Mass/Vol] 32.1 g/dL See Below [facility] [place] Work Phone: [phone] Comment on above: Reference Range: 32. 0 - 36.0 MCV (RBC) [Entitic vol] 93 fL 80 - 100 [facility] Work Phone: [phone] Monocytes/100 WBC (Bld) 5.5 % 2.0 - 10.0 [facility] Work Phone: [phone] Neutrophils/100 WBC (Bld) 73.8 % See Below [facility] Work Phone: [phone] Comment on above: Reference Range: 40. 0 - 80.0 Platelets (Bld) [#/Vol] 637 10*3/uL above high threshold 150 - 450 [facility] Work Phone: [phone] RBC (Bld) [#/Vol] 3.87 {x10E12/L} below low threshold See Below [facility] Work Phone: [phone] Comment on above: Reference Range: 4.0 0 - 5.20 WBC (Bld) [#/Vol] 14.8 10*3/uL above high threshold 4.4 - 11.3 [facility] Work Phone: Complete Blood Count + Differential 0.12 {x10E9/L} above high threshold See Below [facility] Work Phone: Comment on above: Reference Range: 0.0 0 - 0.10 Complete Blood Count + Differential 0.17 {x10E9/L} See Below [facility] Work Phone: Comment on above: Reference Range: 0.0 0 - 0.70 Complete Blood Count + Differential 0.81 {x10E9/L} See Below [facility] Work Phone: Comment on above: Reference Range: 0.1 0 - 1.00 Complete Blood Count + Differential 2.19 {x10E9/L} See Below [facility] Work Phone: Comment on above: Reference Range: 1.2 0 - 4.80 Complete Blood Count + Differential 10.96 {x10E9/L} above high threshold See Below [facility] Work Phone: Comment on above: Reference Range: 1.2 0 - 7.70 Percent differential counts (%) should be interpreted in the context of the absolute cell counts (cells/L). Complete Blood Count + Differential 1.1 % 0.0 - 6.0 [facility] Work Phone: Complete Blood Count + Differential 4.0 % above high threshold 0.0 - 0.9 [facility] Work Phone: Comment on above: Immature Granulocyte Count (IG) includes promyelocytes, myelocytes and metamyelocytes but does not include bands. Percent differential counts (%) should be interpreted in the context of the absolute cell counts (cells/L). Covid 19 Resultson 3 SARS-CoV-2 (COVID-19) RNA JUAN+probe Ql (Unsp spec) NEGATIVE COVID-19 Test Coronaviruses are common world-wide and are the cause of many common colds. SARS-COV2 is a new coronavirus that began circulating worldwide in 2019 so we are calling it COVID-19. It has been estimated that four out of five patients with COVID-19 will recover at home without the need for medical attention. Symptoms of COVID-19 may include cough, fever, shortness of breath, loss of taste or smell and other flu-like symptoms including chills, sore muscles, sore throat, and headache. Severe illness is more common in older people and people with other health problems such as high blood pressure, obesity, and immune system problems. If the test is positive, you have COVID-19. You will be contacted by the ordering physicians office and instructed to remain on home isolation, in accordance with CDC guidelines. You may also be contacted by the [facility] to see if any of your close contacts may have been exposed to the virus and need to quarantine. If the test is negative, you likely do not have COVID-19 at this time, but you still may have a different illness that can spread to other people (like Influenza, or the Flu) and could still be at risk for getting COVID-19. We recommend that you stay away from other people to limit the spread of illness until your symptoms are improving and you are fever-free for 24 hours without the use of fever lowering medications such as acetaminophen or ibuprofen. No test is 100% accurate so if you are still concerned you may have COVID-19, talk to your doctor about the need to continue to stay away from others. Medicines Unless your provider told you not to use the following: Acetaminophen (Tylenol and others) is generally safe. Anti-inflammatory medications, such as Ibuprofen (Advil or Motrin) or Naproxen (Aleve) can also be used. Xklk-wql-skonmhs cough and cold medicines can be used according to the instructions on the package. Some smae-nbl-xyuqfzf medicines also contain acetaminophen. Make sure you are not taking more than your recommended dose. For those not hospitalized, there is no specific treatment available for this illness. Antibiotics do not treat Coronaviruses. Follow-Up Follow up with your doctor by scheduling a virtual visit or consider follow-up at one of our urgent care fever clinics. If you are having difficulty breathing, or are very weak and having difficulty standing, this is a medical emergency. Call 911 or have someone take you to the nearest emergency room immediately. If possible, wear a facemask. Additional guidance from the CDC for patients who tested POSITIVE for COVID-19 How to isolate: Isolate yourself in a specific room at home and limit your contact with others. Use a separate bathroom from other members of the household, when possible. Leave home only to get essential medical care. Do not go to work, school or public areas. Avoid using public transportation, ride-sharing, or taxis. Restrict contact with pets and other animals. If you must care for your pet or be around animals while you are sick, wash your hands before and after your interaction and wear a facemask. Make sure that shared spaces in the home have good airflow, such as by an air conditioner or an opened window, weather permitting. Personal Hygiene Procedures: Wear a face mask when in the same room as other people or pets. If a face mask interferes with your breathing, others should wear a mask when sharing space with you. Frequent hand-washing: wash your hands with soap and water for at least 20 seconds. If soap and water are not available, use alcohol-based hand public works supervisor. Avoid touching your eyes, nose, and mouth with unwashed hands. Household Hygiene Procedures: Avoid sharing personal household items such as dishes, glassware, cups, eating utensils, towels or bedding with other people or pets in your home. After use, these items should be washed with soap and hot water. Disinfect all high-touch surfaces every day with antibacterial cleaning solutions such as Lysol wipes, bleach, cleansers, etc. High-touch surfaces include tabletops, doorknobs, bathroom fixtures, toilets, phones, keyboards, tablets and bedside tables. Immediately clean any surfaces that may have blood, poop or body fluids on them, using antibacterial cleaning solutions such as Lysol wipes, bleach, cleansers, etc. If clothing or bedding come into contact with blood, poop or body fluids, they should be washed immediately. Follow the directions on the laundry detergent and clothing labels but hot water is recommended when possible. Stopping home isolation precautions: If possible, consult your doctor before stopping home isolation precautions. According to the CDC, you can discontinue home isolation precautions when you have met both of these criteria: Your fever and respiratory symptoms have been gone for 24 kalpesh (more content not included)... Normal [facility] INFLUENZA A/B, COVID 2019 PC R,SYMPTOMATICon 08-15-2022 INFLUENZA A, PCR Not detected Normal Not Detected [facility] Comment on above: Result Comment: Resp iratory virus testing is performed routinely by PCR for Influenza A/B and RSV. Not Detected results do not preclude Influenza A/B or RSV infections since the adequacy of sample collection or low viral burden may impact the clinical sensitivity of this test method. Performed By: #### C OINP #### [place] [address] INFLUENZA B, PCR Not detected Normal Not Detected [facility] Comment on above: Result Comment: Resp iratory virus testing is performed routinely by PCR for Influenza A/B and RSV. Not Detected results do not preclude Influenza A/B or RSV infections since the adequacy of sample collection or low viral burden may impact the clinical sensitivity of this test method. Performed By: #### C OINP #### [place] [address] SARS-CoV-2 (COVID-19) RNA JUAN+probe Ql (Unsp spec) Not detected Normal Not Detected [facility] Comment on above: Result Comment: . This test has received FDA Emergency Use Authorization (EUA) and has been verified by . This test is only authorized for the duration of time that circumstances exist to justify the authorization of the emergency use of in vitro diagnostic tests for the detection of SARS-CoV-2 virus and/or diagnosis of COVID-19 infection under section 564(b)(1) of the Act, 21 U.S.C. 360bbb-3(b)(1), unless the authorization is terminated or revoked sooner. is certified under CLIA-88 as qualified to perform high complexity testing. Testing is performed in the [facility] laboratory located at [address] [place] [address]. SARS-CoV-2/Flu/RSV Multiplex Test: Fact sheet for providers: https://www.fda.gov/media/191224/download Fact sheet for patients: https://www.fda.gov/media/734919/download Performed By: #### C OINP #### [place] [address] Lab Specimen Source Nasal, Nasopharyngeal Normal [facility] Comment on above: Performed By: #### C OINP #### [place] [address] INFLUENZA A/B, COVID 2019 PCR,SYMPTOMATIC Not detected See Below [facility] [facility] Work Phone: Comment on above: Reference Range: Not Detected.This test has received FDA Emergency Use Authorization (EUA) and has been verified by . This test is only authorized for the duration of time that circumstances exist to justify the authorization of the emergency use of in vitro diagnostic tests for the detection of SARS-CoV-2 virus and/or diagnosis of COVID-19 infection under section 564(b)(1) of the Act, 21 U.S.C. 360bbb-3(b)(1), unless the authorization is terminated or revoked sooner. is certified under CLIA-88 as qualified to perform high complexity testing. Testing is performed in the [facility] laboratory located at [address] [place] [address].SARS-CoV-2/Flu/RSV Multiplex Test: Fact sheet for providers: https://www.fda.gov/media/287655/downloadFact sheet for patients: https://www.fda.gov/media/311395/download Reference Range: Not Detected Respiratory virus testing is performed routinely by PCR for Influenza A/B and RSV. Not Detected results do not preclude Influenza A/B or RSV infections since the adequacy of sample collection or low viral burden may impact the clinical sensitivity of this test method. SOURCE: Nasal, Nasop haryngealReference Range: Not Detected Respiratory virus testing is performed routinely by PCR for Influenza A/B and RSV. Not Detected results do not preclude Influenza A/B or RSV infections since the adequacy of sample collection or low viral burden may impact the clinical sensitivity of this test method. LACTATEon 08-15-2022 Lactate [Moles/Vol] 0.7 mmol/L Normal 0.4 - 2.0 [facility] Comment on above: Result Comment: Ana puncture immediately after or during the administration of Metamizole may lead to falsely low results. Testing should be performed immediately prior to Metamizole dosing. Performed By: #### L ACT #### [place] [address] LIPASEon 08-15-2022 Lipase [Catalytic activity/Vol] 40 U/L Normal 9 - 82 [facility] Comment on above: Result Comment: Ana puncture immediately after or during the administration of Metamizole may lead to falsely low results. Testing should be performed immediately prior to Metamizole dosing. I-rlwfmt-u-benzoquinone imine (metabolite of Acetaminophen) will generate erroneously low results in samples for patients that have taken toxic doses of acetaminophen. Performed By: #### L IPAS #### [facility] [address] [place] [address] Laboratory - Chemistry and C hemistry - challengeon 08-15-2022 Albumin BCP dye [Mass/Vol] 3.8 g/dL 3.4 - 5.0 [facility] Work Phone: ALP [Catalytic activity/Vol] 116 U/L 33 - 136 [facility] Work Phone: [phone] ALT With P-5'-P [Catalytic activity/Vol] 20 U/L 7 - 45 [facility] Work Phone: Comment on above: Patients treated wit h Sulfasalazine may generate falsely decreased results for ALT. Anion gap [Moles/Vol] 15 mmol/L 10 - [address] [facility] [place] [place] Work Phone: AST With P-5'-P [Catalytic activity/Vol] 15 U/L 9 - 39 [facility] Work Phone: Bilirubin [Mass/Vol] 0.5 mg/dL 0.0 - 1.2 [facility] Work Phone: Calcium [Mass/Vol] 8.5 mg/dL below low threshold 8.6 - 10.3 [facility] Work Phone: Chloride [Moles/Vol] 103 mmol/L 98 - 107 [facility] Work Phone: CO2 [Moles/Vol] 18 mmol/L below low threshold 21 - 32 [facility] Work Phone: Creatinine [Mass/Vol] 0.93 mg/dL See Below [facility] [place] [place] Work Phone: Comment on above: Reference Range: 0.5 0 - 1.05 Glucose [Mass/Vol] 131 mg/dL above high threshold 74 - 99 [facility] Work Phone: Potassium [Moles/Vol] 4.5 mmol/L 3.5 - 5.[address] [facility] [place] [place] Work Phone: Protein [Mass/Vol] 7.5 g/dL 6.4 - 8.2 [facility] Work Phone: Sodium [Moles/Vol] 131 mmol/L below low threshold 136 - 145 [facility] Work Phone: Urea nitrogen [Mass/Vol] 19 mg/dL 6 - 23 [facility] Work Phone: Lactate, Levelon 08-15-2022 Lactate [Moles/Vol] 0.7 mmol/L 0.4 - 2.0 [facility] Work Phone: Comment on above: Venipuncture immedia tely after or during the administration of Metamizole may lead to falsely low results. Testing should be performed immediately prior to Metamizole dosing. Lipase, Serumon 08-15-2022 Lipase [Catalytic activity/Vol] 40 U/L 9 - 82 [facility] Work Phone: Comment on above: Venipuncture immedia tely after or during the administration of Metamizole may lead to falsely low results. Testing should be performed immediately prior to Metamizole dosing. K-sybino-f-benzoquinone imine (metabolite of Acetaminophen) will generate erroneously low results in samples for patients that have taken toxic doses of acetaminophen. No Panel Informationon 08-15 68 {mL/min/1.73m2} >90 [facility] Work Phone: Comment on above: CALCULATIONS OF PEYMAN MATED GFR ARE PERFORMED USING THE 2020 CKD-EPI STUDY REFIT EQUATION WITHOUT THE RACE VARIABLE FOR THE IDMS-TRACEABLE CREATININE METHODS.https://jasn.asnjournals.org/content//A SN.8186246154 Provider Note - ED v3on 07-21 Provider Note - ED v3 Provider Note: Chart Review: HISTORY OF PRESENTING ILLNESS LETI is a 67 year old Female and was seen by me at 15-Aug-2022 12:34 for a chief complaint of weakness ([facility] transported Pt c/o N/V, diarrhea, weakness and general not feeling well. Pt was at [place] ED 1.5 weeks ago with same and Ileus. Spent 4 night in hospital. states she was starting to feel better but N/V and weakness came back a few days ago. COVID And Flu test was negative at [place]. Denies Abdominal pain, CP or SOB. 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 Triage Information: Most recent Vital Sign Value Date Temp (F): 98.4 08-15-2022 12:22 Temp (C): 36.8 08-15-2022 12:22 Heart Rate (beats/min): 50 08-15-2022 12:22 Respirations (breaths/min): 18 08-15-2022 12:22 SpO2 (%): 95 08-15-2022 12:22 BP Systolic (mm Hg): 206 08-15-2022 12:22 BP Diastolic (mm Hg): 73 08-15-2022 12:22 PAST MEDICAL HISTORY ALLERGIES/INTOLERANCES: Allergy Allergen: Cymbalta Type: Drug Reaction: Itching Hives/Urticaria HEALTH HISTORY: Medical History Name:CO (myocardial infarction) Code:I21.9 Name:Diabetes Code:E11.9 Name:Depression Code:F32.A Name:Gout Code:M10.9 Name:Neuropathy Code:G62.9 Name:Thyroid disorder Code:E07.9 OUTPATIENT MEDICATIONS: Home Medications Review Status for Reconciliation: Not Done Med Status: Patient Currently Takes Medications Drug Name: traZODone 150 mg oral tablet Instructions: 1 tab(s) orally once a day Drug Name: Ozempic 2 mg/1.5 mL (0.25 mg or 0.5 mg dose) subcutaneous solution Instructions: subcutaneous once a week Drug Name: pantoprazole 40 mg oral delayed release tablet Instructions: 1 tab(s) orally once a day Drug Name: sucralfate 1 g oral tablet Instructions: 1 tab(s) orally 4 times a day (before meals and at bedtime) Drug Name: albuterol 90 mcg/inh inhalation aerosol with adapter Instructions: null Drug Name: allopurinol 100 mg oral tablet Instructions: orally once a day Drug Name: Eliquis 2.5 mg oral tablet Instructions: 1 tab(s) orally 2 times a day Drug Name: carvedilol 3.125 mg oral tablet Instructions: 1 tab(s) orally 2 times a day Drug Name: colestipol 1 g oral tablet Instructions: 2 tab(s) orally 2 times a day Drug Name: divalproex sodium 125 mg oral delayed release tablet Instructions: 1 tab(s) orally 3 times a day Drug Name: gabapentin 300 mg oral tablet Instructions: orally once a day Drug Name: Lantus OptiClik Cartridge 100 units/mL subcutaneous solution Instructions: 26 subcutaneous once a day (at bedtime) Drug Name: levothyroxine 112 mcg (0.112 mg) oral capsule Instructions: 1 cap(s) orally once a day Drug Name: Lexapro 20 mg oral tablet Instructions: 1 tab(s) orally once a day Drug Name: HumaLOG 100 units/mL subcutaneous solution Instructions: null Drug Name: atorvastatin 80 mg oral tablet Instructions: 1 tab(s) orally once a day Drug Name: Brilinta (ticagrelor) 90 mg oral tablet Instructions: 1 tab(s) orally 2 times a day Drug Name: ondansetron 4 mg oral tablet, disintegrating Instructions: 1 tab(s) orally 3 times a day, As Needed -for nausea and vomiting SIGNIFICANT EVENTS: Past Medical History Description:Anxiety/Depress ion Description:DM- Insulin Description:CO Description:HTN Description:Hyperlipidemia Description:Fibromyalgia Description:Gout Past Surgical History Description:Stents x3- Kilo Description:Hysterectomy CRITICAL CARE RESULTS: Recent Lab Results: I have reviewed these laboratory results: Troponin I, High Sensitivity Trending View [id number] 15:55:00 15-Aug-2022 14:01:00 Troponin I, High [id number] Complete Blood Count + Differential 15-Aug-2022 14:01:00 ResultValue White Blood Cell Count 14.8 H Red Blood Cell Count 3.87 L HGB 11.5 L HCT 35.8 L MCV 93 MCHC 32.1 PLT 637 H RDW-CV 16.0 H Neutrophil % 73.8 Immature Granulocytes % 4.0 H Lymphocyte % 14.8 Monocyte % 5.5 Eosinophil % 1.1 Basophil % 0.8 Neutrophil Count 10.96 H Lymphocyte Count 2.19 Monocyte Count 0.81 Eosinophil Count 0.17 Basophil Count 0.12 H Comprehensive Metabolic Panel 15-Aug-2022 14:01:00 ResultValue Glucose, Serum 131 H NA 131 L K 4.5 CL 103 Bicarbonate, Serum 18 L Anion Gap, Serum 15 BUN 19 CREAT 0.93 GFR Female 68 Calcium, Serum 8.5 L ALB 3.8 ALKP 116 T Pro 7.5 T Bili 0.5 Alanine Aminotransferase, Serum 20 Aspartate Transaminase, Serum 15 Lactate, Level 15-Aug-2022 14:01:00 ResultValue Lactate, Level 0.7 Lipase, Serum 15-Aug-2022 14:01:00 ResultValue Lipase, Serum 40 Urinalysis with Culture if Indicated 15-Aug-2022 13:38:00 ResultValue Color, Urine Straw Reference Range: STRAW,YELLOW Appearance, Urine CLEAR Specific [place], Urine 1.012 pH, Urine 5.0 Protein, Urine 100(2+) A Glucose, Urine NEGA (more content not included)... Normal [facility] Radiologyon 08-15-2022 XR Chest Single view Normal [facility] Work Phone: STOOL PATHOGEN PCR PANELon 0 08-15-2022 CAMPYLOBACTER GP. Canceled [facility] Comment on above: Order Comment: TEST STOOL PATHOGEN PCR PANEL WAS CANCELLED, 08/15/2022 18:51 nsr. Performed By: #### S TLPP #### [facility] [address] [place] [address] NOROVIRUS GI/GII Canceled [facility] Comment on above: Order Comment: TEST STOOL PATHOGEN PCR PANEL WAS CANCELLED, 08/15/2022 18:51 nsr. Performed By: #### S TLPP #### [facility] [address] [place] [address] ROTAVIRUS A Canceled [facility] Comment on above: Order Comment: TEST STOOL PATHOGEN PCR PANEL WAS CANCELLED, 08/15/2022 18:51 nsr. Result Comment: The enteric PCR panel is a panel of sensitive and specific amplified nucleic acid tests indicated as an aid in the diagnosis of specific bacterial and viral agents of gastrointestinal illness, in conjunction with other clinical, laboratory, and epidemiological information. This test is not approved for monitoring these infections. Monitoring is available for Salmonella and Shigella infections-request test Stool PCR Follow-Up (STLPF). Monitoring tests are not available at this time for other enteric agents in this panel. Performed By: #### S TLPP #### [facility] [address] [place] [address] SALMONELLA SP. Canceled [facility] Comment on above: Order Comment: TEST STOOL PATHOGEN PCR PANEL WAS CANCELLED, 08/15/2022 18:51 nsr. Performed By: #### S TLPP #### [facility] [address] [place] [id number] SHIGA TOXIN [address] [facility] Comment on above: Order Comment: TEST STOOL PATHOGEN PCR PANEL WAS CANCELLED, 08/15/2022 18:51 nsr. Performed By: #### S TLPP #### [facility] [address] [place] [address] SHIGA TOXIN [address] [facility] Comment on above: Order Comment: TEST STOOL PATHOGEN PCR PANEL WAS CANCELLED, 08/15/2022 18:51 nsr. Performed By: #### S TLPP #### [facility] [address] [place] [id number] SHIGELLA SP. Canceled [facility] Comment on above: Order Comment: TEST STOOL PATHOGEN PCR PANEL WAS CANCELLED, 08/15/2022 18:51 nsr. Performed By: #### S TLPP #### [facility] [address] [place] [id number] [employer] Canceled [facility] Comment on above: Order Comment: TEST STOOL PATHOGEN PCR PANEL WAS CANCELLED, 08/15/2022 18:51 nsr. Performed By: #### S TLPP #### [facility] [address] [place] [id number] YERSINIA ENTEROCOLITICA Canceled [facility] Comment on above: Order Comment: TEST STOOL PATHOGEN PCR PANEL WAS CANCELLED, 08/15/2022 18:51 nsr. Performed By: #### S TLPP #### [facility] [address] [place] [address] Lab Specimen Source Normal [facility] Comment on above: Order Comment: TEST STOOL PATHOGEN PCR PANEL WAS CANCELLED, 08/15/2022 18:51 nsr. Performed By: #### S TLPP #### [facility] [address] [place] [address] TROPONIN I, HIGH SENSITIVITY on 08-15-2022 TROPONIN I, HIGH SENSITIVITY 10 ng/L Normal 0 - 13 [facility] Comment on above: Result Comment: . Less than 99th percentile of normal range cutoff- Female and children under 18 years old <14 ng/L; Male <21 ng/L: Negative Repeat testing should be performed if clinically indicated. . Female and children under 18 years old 14-50 ng/L; Male 21-50 ng/L: Consistent with possible cardiac damage and possible increased clinical risk. Serial measurements may help to assess extent of myocardial damage. . >50 ng/L: Consistent with cardiac damage, increased clinical risk and myocardial infarction. Serial measurements may help assess extent of myocardial damage. . NOTE: Children less than 1 year old may have higher baseline troponin levels and results should be interpreted in conjunction with the overall clinical context. . NOTE: Troponin I testing is performed using a different testing methodology at [facility] than at other [facility]. Direct result comparisons should only be made within the same method. Performed By: #### U [facility] #### [facility] [address] [place] [address] TROPONIN I, HIGH SENSITIVITY 9 ng/L Normal 0 - 13 [facility] Comment on above: Result Comment: . Less than 99th percentile of normal range cutoff- Female and children under 18 years old <14 ng/L; Male <21 ng/L: Negative Repeat testing should be performed if clinically indicated. . Female and children under 18 years old 14-50 ng/L; Male 21-50 ng/L: Consistent with possible cardiac damage and possible increased clinical risk. Serial measurements may help to assess extent of myocardial damage. . >50 ng/L: Consistent with cardiac damage, increased clinical risk and myocardial infarction. Serial measurements may help assess extent of myocardial damage. . NOTE: Children less than 1 year old may have higher baseline troponin levels and results should be interpreted in conjunction with the overall clinical context. . NOTE: Troponin I testing is performed using a different testing methodology at [facility] than at other [facility]. Direct result comparisons should only be made within the same method. Performed By: #### T [facility] #### [place] [address] Tropinin I.cardiac panel High sensitivity method 9 ng/L 0 - 13 [facility] Work Phone: Comment on above: .Less than 99th perc entile of normal range cutoff-Female and children under 18 years old <14 ng/L; Male <21 ng/L: NegativeRepeat testing should be performed if clinically indicated. .Female and children under 18 years old 14-50 ng/L; Male 21-50 ng/L:Consistent with possible cardiac damage and possible increased clinical risk. Serial measurements may help to assess extent of myocardial damage. .>50 ng/L: Consistent with cardiac damage, increased clinical risk andmyocardial infarction. Serial measurements may help assess extent of myocardial damage. . NOTE: Children less than 1 year old may have higher baseline troponin levels and results should be interpreted in conjunction with the overall clinical context. .NOTE: Troponin I testing is performed using a different testing methodology at [facility] than at other [facility]. Direct result comparisons should only be made within the same method. UA MICROSCOPICon 08-15-2022 RBC 3 /HPF Normal 0-5 [facility] Comment on above: Performed By: #### U AMIC #### [place] [address] SQUAMOUS EPITH. CELLS 3 /HPF Normal [facility] Comment on above: Performed By: #### U AMIC #### [place] [address] WBC (U) [#/Vol] /uL Normal 0-5 [facility] Comment on above: Performed By: #### U AMIC #### [place] [id number] URINALYSIS WITH CULTURE IF I NDICATEDon 08-15-2022 Appearance (U) CLEAR Normal CLEAR [facility] Comment on above: Performed By: #### U ARFX #### [place] [id number] Bilirubin Ql (U) Negative Normal NEGATIVE [facility] Comment on above: Performed By: #### U ARFX #### [place] [address] Color (U) Straw Normal STRAW,YELL OW [facility] Comment on above: Performed By: #### U ARFX #### [place] [address] Glucose Ql (U) Negative Normal NEGATIVE [facility] Comment on above: Performed By: #### U ARFX #### [place] [address] Hemoglobin Ql (U) MODERATE(2+) Abnormal NEGATIVE [facility] Comment on above: Performed By: #### U ARFX #### [place] [address] Ketones Ql (U) Negative Normal NEGATIVE [facility] Comment on above: Performed By: #### U ARFX #### [place] [address] Leukocyte esterase Test strip Ql (U) Negative Normal NEGATIVE [facility] Comment on above: Performed By: #### U ARFX #### [place] [address] Nitrite Ql (U) Negative Normal NEGATIVE [facility] Comment on above: Performed By: #### U ARFX #### [place] [address] pH (U) 5.0 [pH] Normal 5.0 - 8.0 [facility] Comment on above: Performed By: #### U ARFX #### [place] [address] Protein Ql (U) 100(2+) Abnormal NEGATIVE [facility] Comment on above: Performed By: #### U ARFX #### [place] [address] Specific gravity (U) [Rel density] 1.012 Normal 1.005 - 1.035 [facility] Comment on above: Performed By: #### U ARFX #### [address] [address] Urobilinogen (U) [Mass/Vol] mg/dL Normal 0.0 - 1.9 [facility] Comment on above: Performed By: #### U ARFX #### [address] [address] Color (U) Straw See Below [facility] Work Phone: [phone] Comment on above: Reference Range: STR AW,YELLOW Glucose Ql (U) Negative NEGATIVE [facility] Work Phone: [phone] Ketones Ql (U) Negative NEGATIVE [facility] Work Phone: [phone] Leukocyte esterase Test strip Ql (U) Negative NEGATIVE [facility] Work Phone: [phone] pH (U) 5.0 [pH] 5.0 - 8.0 [facility] Work Phone: [phone] Protein (U) [Mass/Vol] 100(2+) Abnormal NEGATIVE [facility] Work Phone: [phone] RBC (U) [#/Vol] MODERATE(2+) Abnormal NEGATIVE [facility] Work Phone: [phone] Specific gravity (U) [Rel density] 1.012 1 See Below [facility] Work Phone: [phone] Comment on above: Reference Range: 1.0 05 - 1.035 URINALYSIS WITH CULTURE IF INDICATED Negative NEGATIVE [facility] Work Phone: [phone] URINALYSIS WITH CULTURE IF INDICATED <2.0 0.0 - 1.9 [facility] Work Phone: [phone] URINALYSIS WITH CULTURE IF INDICATED CLEAR CLEAR [facility] Work Phone: [phone] Urinalysis, Microscopicon Urinalysis, Microscopic 3 {/HPF} 0-5 [facility] Work Phone: [phone] Urinalysis, Microscopic <1 0-5 [facility] Work Phone: [phone] Absolute lymphocyte countOrd ered By: Dr. Buckley on 08-08-2022 Lymphocytes Auto (Unsp spec) [#/Vol] 0.80 10*3/uL 0.83-4.51 [facility] Basophil percentageOrdered B y: Dr. Buckley on 08-08-2022 Basophil percentage 112 mg/dL 74-106 [facility] Basophil percentage 135 mmol/L 136-145 [facility] Basophil percentage 3.3 mmol/L 3.5-5.1 [facility] Basophil percentage 102 mmol/L 98-107 [facility] Basophils (Bld) [#/Vol] 10.4 10*3/uL 4.4-11.0 [facility] Basophils (Bld) [#/Vol] 8.7 10*3/uL 2.0-7.7 [facility] Basophils/100 WBC (Bld) 0.3 % 0-1 [facility] Basophils/100 WBC (Bld) 83.5 % 47-70 [facility] Chloride [Moles/Vol] 102 mmol/L 98-107 [facility] Eosinophils/100 WBC (Bld) 0.3 % 0-5 [facility] Glucose [Mass/Vol] 112 mg/dL 74-106 [facility] Comment on above: Fasting Glucose resu lt from 100 to 125 mg/dL suggests IMPAIRED HOMEOSTASIS per A.D.A. criteria. Neutrophils (Bld) [#/Vol] 8.7 10*3/uL 2.0-7.7 [facility] Neutrophils/100 WBC (Bld) 83.5 % 47-70 [facility] Potassium [Moles/Vol] 3.3 mmol/L 3.5-5.1 [facility] Sodium [Moles/Vol] 135 mmol/L 136-145 [facility] WBC (Bld) [#/Vol] 10.4 10*3/uL 4.4-11.0 [facility] Blood erythrocytes count (nu mber/volume)Ordered By: Dr. Buckley on 08-08-2022 RBC (Bld) [#/Vol] 2.75 10*6/uL 4.2-5.4 [facility] Blood hemoglobin measurement (mass/volume)Ordered By: Dr. Buckley on 08-08-2022 Hemoglobin (Bld) [Mass/Vol] 8.2 g/dL 12.0-15.0 [facility] Blood lymphocytes/100 leukoc ytesOrdered By: Dr. Buckley on 08-08-2022 Lymphocytes/100 WBC (Bld) 7.7 % 19-41 [facility] Blood monocytes/100 leukocyt esOrdered By: Dr. Buckley on 08-08-2022 Monocytes/100 WBC (Bld) 7.2 % 0-10 [facility] Blood platelet mean volumeOr dered By: Dr. Buckley on 08-08-2022 Platelet mean volume (Bld) [Entitic vol] 9.4 fL 6.2-12.0 [facility] Determination of erythrocyte mean corpuscular volume (MCV)Ordered By: Dr. Buckley on 08-08-2022 MCV (RBC) [Entitic vol] 92.0 fL 81-99 [facility] Hematocrit Auto (Bld) [Volum e fraction]Ordered By: Dr. Buckley on 08-08-2022 Hematocrit (Bld) [Volume fraction] 25.3 % 37-47 [facility] Laboratory - Chemistry and C hemistry - challengeOrdered By: Dr. Buckley on 08-08-2022 CO2 [Moles/Vol] 26.0 mmol/L 21.0-32.0 [facility] Magnesium [Mass/Vol] 2.0 mg/dL 1.6-2.6 [facility] Urea nitrogen/Creatinine [Mass ratio] 11.9 mg/mg 10-20 [facility] Laboratory - Hematology and Cell countsOrdered By: Dr. Buckley on 08-08-2022 Erythrocyte distribution width (RBC) [Entitic vol] 53.2 fL 35.1-43.9 [facility] Erythrocyte distribution width (RBC) [Ratio] 15.9 % 11.6-14.6 [facility] Immature granulocytes/100 WBC (Bld) 1.000 % 0.0-0.9 [facility] Comment on above: IG% - Immature Granu locytes (promyelocytes, myelocytes and metamyelocytes) > 1% indicates that a LEFT SHIFT is Present. MCH (RBC) [Entitic mass] 29.8 pg 27.0-32.0 [facility] Nucleated RBC/100 WBC (Bld) [Ratio] 0 % 0-5 [facility] MCHC Auto (RBC) [Mass/Vol]Or dered By: Dr. Buckley on 08-08-2022 MCHC (RBC) [Mass/Vol] 32.4 g/dL 32-36 [facility] No Panel InformationOrdered By: Dr. Buckley on 08-08-2022 Estimated Creatinine Clearance Calc 49.29 ml/min [facility] Estimated GFR (MDRD) Amer 65 mL/min >60 [facility] Comment on above: GFR Calc Estimated GFR (MDRD) Non-Af Amer 53 mL/min >60 [facility] Comment on above: Non- GFR Calc 29.8 pg 27.0-32.0 [facility] 15.9 % 11.6-14.6 [facility] 53.2 fl 35.1-43.9 [facility] 1.000 % 0.0-0.9 [facility] 0 % 0-5 [facility] 53 mL/min >60 [facility] 65 mL/min >60 [facility] 49.29 ml/min [facility] 11.9 RATIO 10-20 [facility] 2.0 mg/dL 1.6-2.6 [facility] 26.0 mmol/L 21.0-32.0 [facility] Platelets bldOrdered By: Dr. Buckley on 08-08-2022 Platelets (Bld) [#/Vol] 296 10*3/uL 150-450 [facility] Serum or plasma calcium jamey urement (mass/volume)Ordered By: Dr. Buckley on 08-08-2022 Calcium [Mass/Vol] 7.9 mg/dL 8.5-10.1 [facility] Serum or plasma creatinine m easurement (mass/volume)Ordered By: Dr. Buckley on 08-08-2022 Creatinine [Mass/Vol] 1.09 mg/dL 0.55-1.02 [facility] Comment on above: The validity of the calculated GFR & GFRAA in patients over 70 years has not been determined. Clinical correlation is essential. Serum or plasma urea nitroge n measurement (mass/volume)Ordered By: Dr. Buckley on 08-08-2022 Urea nitrogen [Mass/Vol] 13 mg/dL 7-18 [facility] Thin prep Papanicolaou smear with manual screeningOrdered By: Dr. Buckley on 08-08-2022 Thin prep Papanicolaou smear with manual screening 7 5-15 [facility] Basophil percentageOrdered B y: Dr. Buckley on 08-07-2022 Basophil percentage 5.8 g/dL 6.4-8.2 [facility] Basophil percentage 0.30 mg/dL 0.20-1.00 [facility] Bilirubin [Mass/Vol] 0.30 mg/dL 0.20-1.00 [facility] Comment on above: For patients on eltr ombopag therapy, use of Dimension [place] TBIL is not recommended. Protein [Mass/Vol] 5.8 g/dL 6.4-8.2 [facility] Iron measurement (mass/mass) Ordered By: Dr. Buckley on 08-07-2022 Iron (Unsp spec) [Mass/Mass] 14 ug/dL 50-170 [facility] Laboratory - Chemistry and C hemistry - challengeOrdered By: Dr. Buckley on 08-07-2022 Cobalamin (Vitamin B12) [Mass/Vol] 330 pg/mL [facility] ALP [Catalytic activity/Vol] 68 U/L 45-117 [facility] ALT [Catalytic activity/Vol] 14 U/L 13-56 [facility] Globulin (S) [Mass/Vol] 3.3 g/dL 2.2-4.2 [facility] No Panel InformationOrdered By: Dr. Buckley on 08-07-2022 Vitamin D 25-Hydroxy 16.8 ng/mL [facility] Comment on above: Vitamin D 25(OH) Sta tus Range Deficiency <20 ng/mL (50nmol/L) Insufficiency 20 - 30 ng/mL (50 - 75 nmol/L) Sufficiency 30 - 100 ng/mL (75 - 250 nmol/L) Toxicity >100 ng/mL (>250 nmol/L) 330 pg/mL [facility] 16.8 ng/mL [facility] Thyroid Stimulating Hormone (TSH) 1.54 uIU/mL 0.358-3.74 [facility] Total Iron Binding Capacity 276 ug/dL 250-450 [facility] 3.3 g/dL 2.2-4.2 [facility] 68 U/L 45-117 [facility] 14 U/L 13-56 [facility] 1.54 uIU/mL 0.358-3.74 [facility] 276 ug/dL 250-450 [facility] Serum or plasma albumin jamey urement (mass/volume)Ordered By: Dr. Buckley on 08-07-2022 Albumin [Mass/Vol] 2.5 g/dL 3.2-5.0 [facility] Serum or plasma albumin/glob ulin mass ratioOrdered By: Dr. Buckley on 08-07-2022 Albumin/Globulin [Mass ratio] 0.8 {ratio} 0.9-2.4 [facility] Serum or plasma ferritin joshua surement (mass/volume)Ordered By: Dr. Buckley on 08-07-2022 Ferritin [Mass/Vol] 63 ng/mL 8-252 [facility] Serum or plasma iron saturat ion measurement (mass fraction)Ordered By: Dr. Buckley on 08-07-2022 Iron saturation [Mass fraction] 5.1 % 15.0-55.0 [facility] Thin prep Papanicolaou smear with manual screeningOrdered By: Dr. Buckley on 08-07-2022 Thin prep Papanicolaou smear with manual screening 14 U/L 15-37 [facility] Clostridium difficile detect ion by polymerase chain reactionOrdered By: Dr. Mg on 08-06-2022 C. difficile DNA JUAN+probe Ql (Unsp spec) [facility] EP PanelOrdered By: Dr. Vikki agee on 08-06-2022 Gastrointestinal pathogens panel JUAN+probe (Stl) [facility] Basophil percentageOrdered B y: Dr. Mg on 08-05-2022 Basophil percentage 173 mg/dL <200 [facility] Basophil percentage 320 mg/dL <199 [facility] Cholesterol [Mass/Vol] 173 mg/dL <200 [facility] Comment on above: <200 mg/dL Desirable 200-240 mg/dL Borderline >240 mg/dL High Risk Triglyceride [Mass/Vol] 320 mg/dL <199 [facility] Comment on above: The drugs N-Acetylcy steine and Metamizole may falsely depress this assay.Serum Triglycerides Reference Interval Normal <150 mg/dL Borderline high 150 - 199 mg/dL High 200 - 499 mg/dL Very High > or = 500 mg/dL Laboratory - Chemistry and C hemistry - challengeOrdered By: Dr. Alva on 08-05-2022 Lipase [Catalytic activity/Vol] 428 U/L 73-393 [facility] No Panel InformationOrdered By: Dr. Alva on 08-05-2022 428 U/L 73-393 [facility] Serum or plasma cholesterol in HDL measurement (mass/volume)Ordered By: Dr. Mg on 08-05-2022 Cholesterol in HDL [Mass/Vol] 46 mg/dL >40 [facility] Comment on above: The drugs N-Acetylcy steine and Metamizole may falsely depress this assay. Reference Range HDL <40 mg/dL Low HDL Cholesterol HDL >or= 60 mg/dL High HDL Cholesterol Serum or plasma cholesterol in VLDL measurement (mass/volume)Ordered By: Dr. Mg on 08-05-2022 Cholesterol in VLDL [Mass/Vol] 64 mg/dL 5-40 [facility] Serum or plasma low density lipoprotein (LDL) cholesterol measurement (mass/volume)Ordered By: Dr. Mg on 08-05-2022 Cholesterol in LDL [Mass/Vol] 63 mg/dL 0-130 [facility] Absolute lymphocyte countOrd ered By: Dr. Hernandez on 08-04-2022 Lymphocytes Auto (Unsp spec) [#/Vol] 1.51 10*3/uL 0.83-4.51 [facility] Basophil percentageOrdered B y: Dr. Hernandez on 08-04-2022 Basophils/100 WBC (Bld) 0.6 % 0-1 [facility] Bilirubin [Mass/Vol] 0.60 mg/dL 0.20-1.00 [facility] Comment on above: For patients on eltr ombopag therapy, use of Dim[place] TBIL is not recommended. Chloride [Moles/Vol] 99 mmol/L 98-107 [facility] Eosinophils/100 WBC (Bld) 0.5 % 0-5 [facility] Glucose [Mass/Vol] 255 mg/dL 74-106 [facility] Comment on above: Glucose result great er than or equal to 200 mg/dLsuggests DIABETES MELLITUS per A.D.A. criteria. Neutrophils (Bld) [#/Vol] 11.8 10*3/uL 2.0-7.7 [facility] Neutrophils/100 WBC (Bld) 82.0 % 47-70 [facility] Potassium [Moles/Vol] 5.3 mmol/L 3.5-5.1 [facility] Protein [Mass/Vol] 8.1 g/dL 6.4-8.2 [facility] Sodium [Moles/Vol] 131 mmol/L 136-145 [facility] WBC (Bld) [#/Vol] 14.3 10*3/uL 4.4-11.0 [facility] Blood erythrocytes count (nu mber/volume)Ordered By: Dr. Hernandez on 08-04-2022 RBC (Bld) [#/Vol] 4.04 10*6/uL 4.2-5.4 [facility] Blood hemoglobin measurement (mass/volume)Ordered By: Dr. Hernandez on 08-04-2022 Hemoglobin (Bld) [Mass/Vol] 12.1 g/dL 12.0-15.0 [facility] Blood lymphocytes/100 leukoc ytesOrdered By: Dr. Hernandez on 08-04-2022 Lymphocytes/100 WBC (Bld) 10.5 % 19-41 [facility] Blood monocytes/100 leukocyt esOrdered By: Dr. Hernandez on 08-04-2022 Monocytes/100 WBC (Bld) 5.1 % 0-10 [facility] Blood platelet mean volumeOr dered By: Dr. Hernandez on 08-04-2022 Platelet mean volume (Bld) [Entitic vol] 9.3 fL 6.2-12.0 [facility] Determination of erythrocyte mean corpuscular volume (MCV)Ordered By: Dr. Hernandez on 08-04-2022 MCV (RBC) [Entitic vol] 92.6 fL 81-99 [facility] Hematocrit Auto (Bld) [Volum e fraction]Ordered By: Dr. Hernandez on 08-04-2022 Hematocrit (Bld) [Volume fraction] 37.4 % 37-47 [facility] Influenza virus A and B and SARS-CoV-2 (COVID-19) Ag panel - Upper respiratory specimOrdered By: Sanju Hernandez on 08-04-2022 SARS-CoV-2 (COVID-19) RNA JUAN+probe Ql (Resp) [facility] Influenza virus A and B and SARS-CoV-2 (COVID-19) Ag panel - Upper respiratory specimOrdered By: Dr. Hernandez on 08-04-2022 SARS-CoV-2 (COVID-19) RNA JUAN+probe Ql (Resp) [facility] Laboratory - Chemistry and C hemistry - challengeOrdered By: Dr. Hernandez on 08-04-2022 ALP [Catalytic activity/Vol] 103 U/L 45-117 [facility] ALT [Catalytic activity/Vol] 18 U/L 13-56 [facility] CO2 [Moles/Vol] 23.0 mmol/L 21.0-32.0 [facility] Globulin (S) [Mass/Vol] 4.4 g/dL 2.2-4.2 [facility] Lipase [Catalytic activity/Vol] 944 U/L 73-393 [facility] Urea nitrogen/Creatinine [Mass ratio] 20.6 mg/mg 10-20 [facility] Laboratory - Hematology and Cell countsOrdered By: Dr. Hernandez on 08-04-2022 Erythrocyte distribution width (RBC) [Entitic vol] 52.5 fL 35.1-43.9 [facility] Erythrocyte distribution width (RBC) [Ratio] 15.5 % 11.6-14.6 [facility] Immature granulocytes/100 WBC (Bld) 1.300 % 0.0-0.9 [facility] Comment on above: IG% - Immature Granu locytes (promyelocytes, myelocytes and metamyelocytes) > 1% indicates that a LEFT SHIFT is Present. MCH (RBC) [Entitic mass] 30.0 pg 27.0-32.0 [facility] Nucleated RBC/100 WBC (Bld) [Ratio] 0 % 0-5 [facility] MCHC Auto (RBC) [Mass/Vol]Or dered By: Dr. Hernandez on 08-04-2022 MCHC (RBC) [Mass/Vol] 32.4 g/dL 32-36 [facility] No Panel InformationOrdered By: Dr. Hernandez on 08-04-2022 Estimated Creatinine Clearance Calc 31.55 ml/min [facility] Estimated GFR (MDRD) Amer 37 mL/min >60 [facility] Comment on above: GFR Calc Estimated GFR (MDRD) Non-Af Amer 31 mL/min >60 [facility] Comment on above: Non- GFR Calc Platelets bldOrdered By: Dr. Hernandez on 08-04-2022 Platelets (Bld) [#/Vol] 555 10*3/uL 150-450 [facility] Serum or plasma albumin jamey urement (mass/volume)Ordered By: Dr. Hernandez on 08-04-2022 Albumin [Mass/Vol] 3.7 g/dL 3.2-5.0 [facility] Serum or plasma albumin/glob ulin mass ratioOrdered By: Dr. Hernandez on 08-04-2022 Albumin/Globulin [Mass ratio] 0.8 {ratio} 0.9-2.4 [facility] Serum or plasma calcium jamey urement (mass/volume)Ordered By: Dr. Hernandez on 08-04-2022 Calcium [Mass/Vol] 8.9 mg/dL 8.5-10.1 [facility] Serum or plasma creatinine m easurement (mass/volume)Ordered By: Dr. Hernandez on 08-04-2022 Creatinine [Mass/Vol] 1.75 mg/dL 0.55-1.02 [facility] Comment on above: The validity of the calculated GFR & GFRAA in patients over 70 years has not been determined. Clinical correlation is essential. Serum or plasma urea nitroge n measurement (mass/volume)Ordered By: Dr. Hernandez on 08-04-2022 Urea nitrogen [Mass/Vol] 36 mg/dL 7-18 [facility] Thin prep Papanicolaou smear with manual screeningOrdered By: Dr. Hernandez on 08-04-2022 Thin prep Papanicolaou smear with manual screening 10 U/L 15-37 [facility] Thin prep Papanicolaou smear with manual screening 9 5-15 [facility] Absolute lymphocyte countOrd ered By: Dr. Kirkpatrick on 07-20-2022 Lymphocytes Auto (Unsp spec) [#/Vol] 2.19 10*3/uL 0.83-4.51 [facility] Basophil percentageOrdered B y: Dr. iKrkpatrick on 07-20-2022 Basophil percentage 136 mg/dL 74-106 [facility] Basophil percentage 135 mmol/L 136-145 [facility] Basophil percentage 4.3 mmol/L 3.5-5.1 [facility] Basophil percentage 98 mmol/L 98-107 [facility] Basophils (Bld) [#/Vol] 9.6 10*3/uL 4.4-11.0 [facility] Basophils (Bld) [#/Vol] 6.4 10*3/uL 2.0-7.7 [facility] Basophils/100 WBC (Bld) 0.7 % 0-1 [facility] Basophils/100 WBC (Bld) 66.3 % 47-70 [facility] Basophils/100 WBC (Bld) 1.8 % 0-5 [facility] Chloride [Moles/Vol] 98 mmol/L 98-107 [facility] Eosinophils/100 WBC (Bld) 1.8 % 0-5 [facility] Glucose [Mass/Vol] 136 mg/dL 74-106 [facility] Comment on above: Fasting Glucose resu lt greater than or equal to 126 mg/dL suggests DIABETES MELLITUS per A.D.A. criteria. Neutrophils (Bld) [#/Vol] 6.4 10*3/uL 2.0-7.7 [facility] Neutrophils/100 WBC (Bld) 66.3 % 47-70 [facility] Potassium [Moles/Vol] 4.3 mmol/L 3.5-5.1 [facility] Sodium [Moles/Vol] 135 mmol/L 136-145 [facility] WBC (Bld) [#/Vol] 9.6 10*3/uL 4.4-11.0 [facility] Blood erythrocytes count (nu mber/volume)Ordered By: Dr. Kirkpatrick on 07-20-2022 RBC (Bld) [#/Vol] 4.01 10*6/uL 4.2-5.4 [facility] Blood hemoglobin measurement (mass/volume)Ordered By: Dr. Kirkpatrick on 07-20-2022 Hemoglobin (Bld) [Mass/Vol] 12.2 g/dL 12.0-15.0 [facility] Blood lymphocytes/100 leukoc ytesOrdered By: Dr. Kirkpatrick on 07-20-2022 Lymphocytes/100 WBC (Bld) 22.9 % 19-41 [facility] Blood monocytes/100 leukocyt esOrdered By: Dr. Kirkpatrick on 07-20-2022 Monocytes/100 WBC (Bld) 7.6 % 0-10 [facility] Blood platelet mean volumeOr dered By: Dr. Kirkpatrick on 07-20-2022 Platelet mean volume (Bld) [Entitic vol] 9.5 fL 6.2-12.0 [facility] Determination of erythrocyte mean corpuscular volume (MCV)Ordered By: Dr. Kirkpatrick on 07-20-2022 MCV (RBC) [Entitic vol] 90.5 fL 81-99 [facility] Hematocrit Auto (Bld) [Volum e fraction]Ordered By: Dr. Kirkpatrick on 07-20-2022 Hematocrit (Bld) [Volume fraction] 36.3 % 37-47 [facility] Laboratory - Chemistry and C hemistry - challengeOrdered By: Dr. Kirkpatrick on 07-20-2022 CO2 [Moles/Vol] 27.0 mmol/L 21.0-32.0 [facility] Urea nitrogen/Creatinine [Mass ratio] 17.6 mg/mg 10-20 [facility] Laboratory - Hematology and Cell countsOrdered By: Dr. Kirkpatrick on 07-20-2022 Erythrocyte distribution width (RBC) [Entitic vol] 49.1 fL 35.1-43.9 [facility] Erythrocyte distribution width (RBC) [Ratio] 15.0 % 11.6-14.6 [facility] Immature granulocytes/100 WBC (Bld) 0.700 % 0.0-0.9 [facility] Comment on above: IG% - Immature Granu locytes (promyelocytes, myelocytes and metamyelocytes) > 1% indicates that a LEFT SHIFT is Present. MCH (RBC) [Entitic mass] 30.4 pg 27.0-32.0 [facility] Nucleated RBC/100 WBC (Bld) [Ratio] 0 % 0-5 [facility] MCHC Auto (RBC) [Mass/Vol]Or dered By: Dr. Kirkpatrick on 07-20-2022 MCHC (RBC) [Mass/Vol] 33.6 g/dL 32-36 [facility] No Panel InformationOrdered By: Dr. Kirkpatrick on 07-20-2022 Estimated Creatinine Clearance Calc 41.53 ml/min [facility] Estimated GFR (MDRD) Amer 55 mL/min >60 [facility] Comment on above: GFR Calc Estimated GFR (MDRD) Non-Af Amer 46 mL/min >60 [facility] Comment on above: Non- GFR Calc 30.4 pg 27.0-32.0 [facility] 15.0 % 11.6-14.6 [facility] 49.1 fl 35.1-43.9 [facility] 0.700 % 0.0-0.9 [facility] 0 % 0-5 [facility] 46 mL/min >60 [facility] 55 mL/min >60 [facility] 41.53 ml/min [facility] 17.6 RATIO 10-20 [facility] 27.0 mmol/L 21.0-32.0 [facility] Platelets bldOrdered By: Dr. Kirkpatrick on 07-20-2022 Platelets (Bld) [#/Vol] 390 10*3/uL 150-450 [facility] Serum or plasma calcium jamey urement (mass/volume)Ordered By: Dr. Kirkpatrick on 07-20-2022 Calcium [Mass/Vol] 9.3 mg/dL 8.5-10.1 [facility] Serum or plasma creatinine m easurement (mass/volume)Ordered By: Dr. Kirkpatrick on 07-20-2022 Creatinine [Mass/Vol] 1.25 mg/dL 0.55-1.02 [facility] Comment on above: The validity of the calculated GFR & GFRAA in patients over 70 years has not been determined. Clinical correlation is essential. Serum or plasma urea nitroge n measurement (mass/volume)Ordered By: Dr. Kirkpatrick on 07-20-2022 Urea nitrogen [Mass/Vol] 22 mg/dL 7-18 [facility] Thin prep Papanicolaou smear with manual screeningOrdered By: Dr. Kirkpatrick on 07-20-2022 Thin prep Papanicolaou smear with manual screening 10 5-15 [facility] Basophil percentageOrdered B y: Dr. Marie on 04-20-2022 Basophil percentage 3.5 mg/dL 2.5-4.9 [facility] Chloride [Moles/Vol] 100 mmol/L 98-107 [facility] Glucose [Mass/Vol] 153 mg/dL 74-106 [facility] Comment on above: Fasting Glucose resu lt greater than or equal to 126 mg/dL suggests DIABETES MELLITUS per A.D.A. criteria. Potassium [Moles/Vol] 3.9 mmol/L 3.5-5.1 [facility] Sodium [Moles/Vol] 136 mmol/L 136-145 [facility] Laboratory - Chemistry and C hemistry - challengeOrdered By: Dr. Marie on 04-20-2022 CO2 [Moles/Vol] 27.0 mmol/L 21.0-32.0 [facility] Urea nitrogen/Creatinine [Mass ratio] 18.1 mg/mg 10-20 [facility] No Panel InformationOrdered By: Dr. Marie on 04-20-2022 Estimated GFR (MDRD) Amer 60 mL/min >60 [facility] Comment on above: GFR Calc Estimated GFR (MDRD) Non-Af Amer 50 mL/min >60 [facility] Comment on above: Non- GFR Calc Serum or plasma albumin jamey urement (mass/volume)Ordered By: Dr. Marie on 04-20-2022 Albumin [Mass/Vol] 3.7 g/dL 3.2-5.0 [facility] Serum or plasma calcium jamey urement (mass/volume)Ordered By: Dr. Marie on 04-20-2022 Calcium [Mass/Vol] 9.0 mg/dL 8.5-10.1 [facility] Serum or plasma creatinine m easurement (mass/volume)Ordered By: Dr. Marie on 04-20-2022 Creatinine [Mass/Vol] 1.16 mg/dL 0.55-1.02 [facility] Comment on above: The validity of the calculated GFR & GFRAA in patients over 70 years has not been determined. Clinical correlation is essential. Serum or plasma urea nitroge n measurement (mass/volume)Ordered By: Dr. Marie on 04-20-2022 Urea nitrogen [Mass/Vol] 21 mg/dL 7-18 [facility] Urine creatinine measurement (mass/volume)Ordered By: Dr. Marie on 04-20-2022 Creatinine (U) [Mass/Vol] 63.20 mg/dL NO RANGE EST. [facility] Urine protein measurement (m ass/volume)Ordered By: Dr. Marie on 04-20-2022 Protein (U) [Mass/Vol] 11.9 mg/dL 0.0-11.8 [facility] Urine protein/creatinine mas s ratioOrdered By: Dr. Marie on 04-20-2022 Protein/Creatinine (U) [Mass ratio] 188 mg/g CRE 0-200 [facility] Colonoscopyon 03-16-2022 Colonoscopy PATIENTNAME Patient Name: Leti Dela Cruz EXAMDATE Procedure Date: 03/16/2022 2:05 PM PATIENTID PATIENTACCOUNTNUM PATIENTDOB Date of : 1955 ADMITTYPE Admit Type: Outpatient PATIENTROOM Site: [facility] 1 ETHNICITY Ethnicity: Not or RACE Race: White PROVDR Attending MD: Servando Clay DO, [id number] ENDOPROCEDURENAME Procedure: Colonoscopy INDICATION Indications: Clinically significant diarrhea of unexplained origin PRIMARYPROVIDER Providers: Servando Clay DO (Doctor), Vandana Ellis RN (Nurse), Osvaldo Benito RN (Nurse) EDREFPROVIDER Referring: Pt States None Pcp CURRENT_MEDS Medicines: Midazolam 5 mg IV, Fentanyl 100 micrograms IV, Glucagon 1 mg IV COMPLIC Complications: No immediate complications. ENDOPROCEDURETEXT Procedure: Pre-Anesthesia Assessment: - Prior to the procedure, a History and Physical was performed, and patient medications and allergies were reviewed. The patient is competent. The risks and benefits of the procedure and the sedation options and risks were discussed with the patient. All questions were answered and informed consent was obtained. Patient identification and proposed procedure were verified by the physician in the pre-procedure area. Mental Status Examination: alert and oriented. Airway Examination: normal oropharyngeal airway and neck mobility. Respiratory Examination: clear to auscultation. CV Examination: normal. Prophylactic Antibiotics: The patient does not require prophylactic antibiotics. Prior Anticoagulants: The patient has taken Brilinta (ticagrelor), last dose was day of procedure. ASA Grade Assessment: II - A patient with mild systemic disease. After reviewing the risks and benefits, the patient was deemed in satisfactory condition to undergo the procedure. The anesthesia plan was to use moderate sedation / analgesia (conscious sedation). Immediately prior to administration of medications, the patient was re-assessed for adequacy to receive sedatives. The heart rate, respiratory rate, oxygen saturations, blood pressure, adequacy of pulmonary ventilation, and response to care were monitored throughout the procedure. The physical status of the patient was re-assessed after the procedure. After I obtained informed consent, the scope was passed under direct vision. Throughout the procedure, the patient's blood pressure, pulse, and oxygen saturations were monitored continuously. The pediatric colonoscope was introduced through the anus and advanced to the cecum, identified by appendiceal orifice and ileocecal valve. The colonoscopy was performed without difficulty. The patient tolerated the procedure well. The quality of the bowel preparation was good. The ileocecal valve, appendiceal orifice, and rectum were photographed. FINDING Findings: The perianal and digital rectal examinations were normal. Pertinent negatives include normal sphincter tone and no palpable rectal lesions. Multiple small and large-mouthed diverticula were found in the sigmoid colon and descending colon. There was evidence of diverticular spasm. Biopsies for histology were taken with a cold forceps from the entire colon for evaluation of microscopic colitis. No additional abnormalities were found on retroflexion. SEDATION Moderate Sedation: Moderate (conscious) sedation was administered by the nurse and supervised by the endoscopist. The following parameters were monitored: oxygen saturation, heart rate, blood pressure, and response to care. Total physician intraservice time was 22 minutes. EBL Estimated Blood Loss: Estimated blood loss: none. IMPRESS Impression: - Moderate diverticulosis in the sigmoid colon and in the descending colon. There was evidence of diverticular spasm. Biopsied. ENDORECOMMENDATION Recommendation: - Patient has a contact number available for emergencies. The signs and symptoms of potential delayed complications were discussed with the patient. Return to normal activities tomorrow. Written discharge instructions were provided to the patient. - Resume previous diet. - Continue present medications. - Repeat colonoscopy in 10 years for screening purposes. - Return to my office at appointment to be scheduled. CPT_CODES Procedure Code(s): --- Professional --- 16567, Colonoscopy, flexible; with biopsy, single or multiple G0500, Moderate sedation services provided by the same physician or other qualified health healthcare prof performing a gastrointestinal endoscopic service that sedation supports, requiring the presence of an independent trained observer to assist in the monitoring of the patient's level of consciousness and physiological status; initial 15 minutes of intra-service time; patient age 5 years or older (additional time may be reported with 991 (more content not included)... Normal [facility] GLUCOSE-POCTon 03-16-2022 Glucose [Mass/Vol] 114 mg/dL High 74 - 99 [facility] Comment on above: Performed By: #### G RAJENDRA #### [address] [place] [address] Laboratory - Chemistry and C hemistry - challengeon 03-16-2022 Glucose [Mass/Vol] 114 mg/dL above high threshold 74 - 99 [facility] 120 Work Phone: No Panel Informationon 03-16 [facility] 120 Work Phone: [email or web address] [facility] nd 120 Work Phone: [facility] Surgical Pathology Depar tmenton 03-16-2022 [facility] Surgical Pathology Department Name LETI DELA CRUZ Pathologist: TWILA LEMA MD Date of Procedure: 03/16/2022 Date Received: 03/16/2022 Date Reported 03/26/2022 Submitting Physician: SERVANDO CLAY DO Location: [facility] Copy To/Referring/Attending: Pt States No PCP Other External # FINAL DIAGNOSIS A. COLON, RANDOM: -- COLONIC MUCOSA WITH NO SIGNIFICANT PATHOLOGIC FINDINGS. -- NEGATIVE FOR MICROSCOPIC COLITIS. Electronically Signed Out By TWILA LEMA MD/HMA By the signature on this report, the individual or group listed as making the Final Interpretation/Diagnosis certifies that they have reviewed this case. Diagnostic interpretation performed at [facility] [address] [facility] [address] Clinical History: Physician Contact Number: [id number] Fixative (A): Formalin Clinical Diagnosis History diarrhea Specimens Submitted As: A: RANDOM COLON Gross Description: Received in formalin, labeled with the patient's name and hospital number and random colon, are multiple fragments of mahmood, soft tissue aggregating to 1.8 x 0.2 x 0.2 cm. The specimen is submitted in toto in one cassette. JWH jwh/03/17/2022 [facility] Department of Pathology [id number] Normal [facility] Comment on above: Performed By: #### U HCS #### [facility] Surgical Pathology Department [address] [facility] [address] Established Visit (Gastroent erology)on 02-17-2022 Established Visit (Gastroenterology) Diagnoses/Problems Assessed Acute left lower quadrant pain (789.04,338.19) (R10.32) Orders Acute left lower quadrant pain Colonoscopy Diagnostic; Status:Hold For - Scheduling; Requested for:[id number]; Perform:[facility]; Due:[id number];Ordered; For:Acute left lower quadrant pain; Ordered By:Servando Clay; Patient competent to provide consent? : Yes-pt mentally competent to provide consent Provider Impressions Recommend colonoscopy add MiraLAX 17 g Monday continue Metamucil daily. Will need to hold Eliquis 2 days prior to colonoscopy Chief Complaint FUV in office today for constipation, intermittent diarrhea, nausea. Patient states her solid BM are very hard and are painful, bright red blood on the tissue, patient states stools are dark. Patient states her Housing Property Manager wated her to ask about Ozempic with her bowel issues. History of Present IllnessRashard is seen today in follow-up. She is having more productive bowel movement since beginning Metamucil she states are very hard at times and very voluminous to the point where they are causing her some discomfort. She continues to have some intermittent constipation followed by diarrhea. She denies any rectal bleeding or nausea and melanic stools are now resolved. She continues have persistent left lower quadrant pain which seems to be unchanged by her current bowel regimen. Review of Systems Constitutional: no fever, no chills, not feeling tired and no recent weight loss. ENT: no lymphadenopathy. Cardiovascular: no shortness of breath and no chest pain. Respiratory: no cough. Gastrointestinal: as noted in HPI. Musculoskeletal: no joint swelling. Integumentary: no rashes, no skin lesions and was no jaundiced. All other systems have been reviewed and are negative for complaint. 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) Bipolar 2 disorder (296.89) (F31.81) Bipolar 2 disorder CAD (coronary artery disease) (414.00) (I25.10) Carpal tunnel syndrome of right wrist (354.0) (G56.01) Chronic diarrhea of unknown origin (787.91) (K52.9) CKD (chronic kidney disease) (585.9) (N18.9) Diabetes mellitus with chronic kidney disease, without long-term current use of insulin (250.40,585.9) (E11.22) Diabetic neuropathy (250.60,357.2) (E11.40) Diabetic neuropathy Elevated blood uric acid level (790.6) (E79.0) Encounter for immunization (V03.89) (Z23) Encounter for Medicare annual wellness exam (V70.0) (Z00.00) Fibromyalgia (729.1) (M79.7) Gammopathy, 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) Hepatic steatosis (571.8) (K76.0) Hernia (553.9) (K46.9) Hyperlipidemia (272.4) (E78.5) Hypomagnesemia (275.2) (E83.42) Hypothyroidism (244.9) (E03.9) IBS (irritable bowel syndrome) (564.1) (K58.9) Mild intermittent asthma without complication (493.90) (J45.20) Mitral valve prolapse (424.0) (I34.1) Obesity (278.00) (E66.9) RLS (restless legs syndrome) (333.94) (G25.81) Screening for breast cancer (V76.10) (Z12.39) Secondary pancreatic insufficiency (577.8) (K86.89) Steatorrhea (579.8) (K90.9) Past Medical History Problems 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) Benign essential hypertension (401.1) (I10) Fibromyalgia (729.1) (M79.7) Gammopathy, 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) Hyperlipidemia (272.4) (E78.5) Hypomagnesemia (275.2) (E83.42) Hypothyroidism (244.9) (E03.9) IBS (irritable bowel syndrome) (564.1) (K58.9) Mild intermittent asthma without complication (493.90) (J45.20) RLS (restless legs syndrome) (333.94) (G25.81) Surgical History Problems History of Appendectomy History of Cardiac catheterization History of Carpal tunnel surgery History of Cholecystectomy History of Colonoscopy Managed By: Servando Clay (Internal Medicine) History of Esophagogastroduodenoscopy History of Hysterectomy Family History Mother Family history of hypertension (V17.49) (Z82.49) Father Family history of dementia (V17.2) (Z81.8) Family history of diabetes mellitus (V18.0) (Z83.3) Family history of hypertension (V17.49) (Z82.49) Family history of Parkinson disease, symptomatic Social History Problems Current every day smoker (305.1) (F17.200) Denies alcohol consumption (V49.89) (Z78.9) No caffeine use No illicit drug use Denied: History of Occasional tobacco smoker Smoker (305.1) (F17.200) Allergies Medication Cymbalta Hypertension;; Recorded By: Alice Faye; 04/23/2019 3:09:37 PM Additional reactions - Feeling hot and cold NonMedication Tomatoes Recorded By: Alice Faye; 04/23/2019 3:09:37 PM Additional reactions - NANDV - Nausea and vomiting Current Meds Medication NameInstruction Albuterol Sulfate HFA 108 (90 Base) MCG/ACT Inhalation Aerosol SolutionINHALE 2 PUFFS 4 times daily PRN Allopurinol 100 MG Oral TabletTAKE 1 TABLET RENAN (more content not included)... Normal [employer] Basophil percentageon 2021 Bilirubin [Mass/Vol] 0.40 mg/dL 0.20-1.00 [facility] Work Phone: Comment on above: For patients on eltr ombopag therapy, use of Dimension [place] TBIL is not recommended. Chloride [Moles/Vol] 102 mmol/L 98-107 [facility] Work Phone: Glucose [Mass/Vol] 135 mg/dL 74-106 [facility] Work Phone: Comment on above: Fasting Glucose resu lt greater than or equal to 126 mg/dL suggests DIABETES MELLITUS per A.D.A. criteria. Potassium [Moles/Vol] 4.2 mmol/L 3.5-5.1 [facility] Work Phone: Protein [Mass/Vol] 7.7 g/dL 6.4-8.2 [facility] Work Phone: Sodium [Moles/Vol] 139 mmol/L 136-145 [facility] Work Phone: Laboratory - Chemistry and C hemistry - challengeon 02-07-2022 ALP [Catalytic activity/Vol] 86 U/L 45-117 [facility] Work Phone: ALT [Catalytic activity/Vol] 18 U/L 13-56 [facility] Work Phone: CO2 [Moles/Vol] 28.0 mmol/L 21.0-32.0 [facility] Work Phone: Free T4 [Mass/Vol] 1.22 ng/dL 0.76-1.46 [facility] Work Phone: Globulin (S) [Mass/Vol] 3.9 g/dL 2.2-4.2 [facility] Work Phone: Urea nitrogen/Creatinine [Mass ratio] 20.0 mg/mg 10-20 [facility] Work Phone: Laboratory - Hematology and Cell countson 02-07-2022 HbA1c (Bld) [Mass fraction] 7.0 % [facility] Work Phone: No Panel Informationon 02-07 Estimated GFR (MDRD) Amer 64 mL/min >60 [facility] Work Phone: Comment on above: GFR Calc Estimated GFR (MDRD) Non-Af Amer 53 mL/min >60 [facility] Work Phone: Comment on above: Non- GFR Calc Thyroid Stimulating Hormone (TSH) 1.74 uIU/mL 0.358-3.74 [facility] Work Phone: Serum or plasma albumin jamey urement (mass/volume)on 02-07-2022 Albumin [Mass/Vol] 3.8 g/dL 3.2-5.0 [facility] Work Phone: Serum or plasma albumin/glob ulin mass ratioon 02-07-2022 Albumin/Globulin [Mass ratio] 1.0 {ratio} 0.9-2.4 [facility] Work Phone: Serum or plasma calcium jamey urement (mass/volume)on 02-07-2022 Calcium [Mass/Vol] 9.0 mg/dL 8.5-10.1 [facility] Work Phone: Serum or plasma creatinine m easurement (mass/volume)on 02-07-2022 Creatinine [Mass/Vol] 1.10 mg/dL 0.55-1.02 [facility] Work Phone: Comment on above: The validity of the calculated GFR & GFRAA in patients over 70 years has not been determined. Clinical correlation is essential. Serum or plasma urea nitroge n measurement (mass/volume)on 02-07-2022 Urea nitrogen [Mass/Vol] 22 mg/dL 7-18 [facility] Work Phone: Thin prep Papanicolaou smear with manual screeningon 02-07-2022 Thin prep Papanicolaou smear with manual screening 11 U/L 15-37 [facility] Work Phone: Thin prep Papanicolaou smear with manual screening 9 5-15 [facility] Work Phone: Basophil percentageon 08-26- 2022 Bilirubin [Mass/Vol] 0.40 mg/dL 0.20-1.00 [facility] Work Phone: Comment on above: For patients on eltr ombopag therapy, use of Dimension [place] TBIL is not recommended. Cholesterol [Mass/Vol] 205 mg/dL <200 [facility] Work Phone: Comment on above: <200 mg/dL Desirable 200-240 mg/dL Borderline >240 mg/dL High Risk Protein [Mass/Vol] 7.3 g/dL 6.4-8.2 [facility] Work Phone: Triglyceride [Mass/Vol] 208 mg/dL <199 [facility] Work Phone: Comment on above: The drugs N-Acetylcy steine and Metamizole may falsely depress this assay.Serum Triglycerides Reference Interval Normal <150 mg/dL Borderline high 150 - 199 mg/dL High 200 - 499 mg/dL Very High > or = 500 mg/dL Direct bilirubinon 2 Bilirubin.direct [Mass/Vol] 0.09 mg/dL 0.00-0.30 [facility] Work Phone: Laboratory - Chemistry and C hemistry - challengeon 01-14-2022 ALP [Catalytic activity/Vol] 86 U/L 45-117 [facility] Work Phone: ALT [Catalytic activity/Vol] 18 U/L 13-56 [facility] Work Phone: Globulin (S) [Mass/Vol] 3.6 g/dL 2.2-4.2 [facility] Work Phone: Serum or plasma albumin jamey urement (mass/volume)on 01-14-2022 Albumin [Mass/Vol] 3.7 g/dL 3.2-5.0 [facility] Work Phone: Serum or plasma cholesterol in HDL measurement (mass/volume)on 01-14-2022 Cholesterol in HDL [Mass/Vol] 54 mg/dL >40 [facility] Work Phone: Comment on above: The drugs N-Acetylcy steine and Metamizole may falsely depress this assay. Reference Range HDL <40 mg/dL Low HDL Cholesterol HDL >or= 60 mg/dL High HDL Cholesterol Serum or plasma cholesterol in VLDL measurement (mass/volume)on 01-14-2022 Cholesterol in VLDL [Mass/Vol] 42 mg/dL 5-40 [facility] Work Phone: Serum or plasma low density lipoprotein (LDL) cholesterol measurement (mass/volume)on 01-14-2022 Cholesterol in LDL [Mass/Vol] 109 mg/dL 0-130 [facility] Work Phone: Thin prep Papanicolaou smear with manual screeningon 01-14-2022 Thin prep Papanicolaou smear with manual screening 8 U/L 15-37 [facility] Work Phone: Established Visit (Gastroent erology)on 01-06-2022 Established Visit (Gastroenterology) Diagnoses/Problems Assessed IBS (irritable bowel syndrome) (564.1) (K58.9) Orders IBS (irritable bowel syndrome) Start: Sucralfate 1 GM Oral Tablet; TAKE 1 TABLET EVERY 12 HOURS DAILY Rx By: Servando Clay; Dispense: 30 Days ; #:60 Tablet; Refill: 5;For: IBS (irritable bowel syndrome); [place] = N; Verified Transmission to [facility] 4789; Last Updated By: Yuniel Morrison; 01/06/2022 1:59:11 PM Provider Impressions I informed Leti that her symptoms were likely a low-grade small bowel obstruction from adhesion. Recommend she begin Metamucil for her cyclic constipation diarrhea continue Carafate and follow-up in 6 weeks. Given her normal colonoscopy 4 years ago and relatively normal labs and unremarkable CT scan no further testing is offered at this time. Chief Complaint FUV in office today from ER for abdominal pain and diarrhea x 4 days, nausea, occasional black stools. Adult Risk Screening Initial Fall Risk Screening: LETI has not fallen in the last 6 months. LETI has a fear of falling. She does not need assistance with sitting, standing or walking. Does not need assistance walking in her home. She does not need assistance in an unfamiliar setting. The patient is not using an assistive device. Fall Risk Screening: Patient is identified as a fall risk. Care Plan: Moderate Risk: Low risk interventions plus: do not leave patient on exam table unattended, supervised activity, educate patient/family on falls prevention, review safety initiatives with patient/family, family at bedside as allowed, yellow falls risk band, focus rounding attention, locate patient in area of high visibility, wheelchair, bed, or personal alarm, bedside commode, elevated toilet seat and pharmacy consult for medication concerns. Low: age 65 or older. Moderate: fall in last 6 months or fear of falling and unsteady gait/ use of assistive device/apparent weakness or functionally challenged. Living Will. Living Will: No living will on file. Healthcare POA: No healthcare proxy on file. Tobacco Screening: Has used tobacco in the past 6 months. Has tried to quit or thought about quitting tobacco. Type(s) of Tobacco: cigarettes Strategies used to Quit: None The patient is comfortable filling out medical forms. History of Present Illness Rashard is seen today in follow-up. She was at [place] [facility] late October with 5-day history of vomiting diarrhea. States she had the worst abdominal pain she felt in years. Last hospitalization was 3 years ago for small bowel obstruction. Patient's had multiple abdominal operation including total dose hysterectomy and open cholecystectomy. She presents today in follow-up. She still having cyclic constipation diarrhea she felt better while taking Carafate. She is currently on Colestid 1 g twice daily which is helping with her bowel salt diarrhea but has not resolved all of her She was given a short trial of Creon for presumed pancreatic insufficiency and it did not resolve her diarrhea. She is no longer taking that medication. Her epigastric discomfort has improved since taking Carafate she wishes to continue a few weeks longer. She denies any rectal bleeding or melanic stools. Last colonoscopy was in 2018. CT scan reviewed from [place] [facility] revealed small bowel loops with fluid and air-filled segments without transition point and and normal colon without obvious diverticulitis. Review of Systems Constitutional: no fever, no chills, not feeling tired and no recent weight loss. ENT: no lymphadenopathy. Cardiovascular: no shortness of breath and no chest pain. Respiratory: no cough. Gastrointestinal: as noted in HPI. Musculoskeletal: no joint swelling. Integumentary: no rashes, no skin lesions and was no jaundiced. All other systems have been reviewed and are negative for complaint. 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) Bipolar 2 disorder (296.89) (F31.81) Bipolar 2 disorder CAD (coronary artery disease) (414.00) (I25.10) Carpal tunnel syndrome of right wrist (354.0) (G56.01) Chronic diarrhea of unknown origin (787.91) (K52.9) CKD (chronic kidney disease) (585.9) (N18.9) Diabetes mellitus with chronic kidney disease, without long-term current use of insulin (250.40,585.9) (E11.22) Diabetic neuropathy (250.60,357.2) (E11.40) Diabetic neuropathy Elevated blood uric acid level (790.6) (E79.0) Encounter for immunization (V03.89) (Z23) Encounter for Medicare annual wellness exam (V70.0) (Z00.00) Fibromyalgia (729.1) (M79.7) Gammopathy, 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) Hepatic steatosis (571.8) (K76.0) Hernia (553.9) (K46.9) Hyperlipidemia (272.4) (E78.5) Hypomagnesemia (275.2) (E83.42) Hypothyroidism (244.9) (E03.9) IBS (irritable bowel syndrome) (564.1) (K58.9) Mild intermittent asthma without complication (493.90) (J45.2 (more content not included)... Normal [facility] Laboratory - Microbiology an d Antimicrobial susceptibilityon 12-10-2021 SARS-CoV-2 (COVID-19) RNA JUAN+probe Ql (Unsp spec) Not detected Not Detect [facility] Work Phone: Comment on above: Normal Reference Ran ge: Not DetectedMethod:(RT-PCR) real-time reverse transcriptase PCRLuminex LILLY Instrument*The Food and Drug Administration (FDA) has issued an Emergency Use Authorization (EAU) for the LILLY SARS-CoV-2 Assay for the rapid detection of the virus that causes COVID-19. This test has been validated, but the [facility] independent review of this validation is pending.*Negative results do not preclude infection and should not be used as the sole basis for treatment or patient management. Optimum specimen types and timing for peak viral levels during infections caused by SARS-CoV-2 have not been determined. Collection of multiple specimens from the same patient may be necessary to detect the virus. The possibility of a false negative result should be considered if the patient has clinical presentation or has had recent exposure. Absolute lymphocyte counton 11-16-2021 Lymphocytes Auto (Unsp spec) [#/Vol] 1.67 10*3/uL 0.83-4.51 [facility] Work Phone: Basophil percentageon 2021 Basophils/100 WBC (Bld) 0.4 % 0-1 [facility] Work Phone: Bilirubin [Mass/Vol] 0.40 mg/dL 0.20-1.00 [facility] Work Phone: Comment on above: For patients on eltr ombopag therapy, use of Dimension [place] TBIL is not recommended. Chloride [Moles/Vol] 95 mmol/L 98-107 [facility] Work Phone: Eosinophils/100 WBC (Bld) 1.4 % 0-5 [facility] Work Phone: Glucose [Mass/Vol] 150 mg/dL 74-106 [facility] Work Phone: Comment on above: Fasting Glucose resu lt greater than or equal to 126 mg/dL suggests DIABETES MELLITUS per A.D.A. criteria. Neutrophils (Bld) [#/Vol] 8.9 10*3/uL 2.0-7.7 [facility] Work Phone: Neutrophils/100 WBC (Bld) 77.2 % 47-70 [facility] Work Phone: Potassium [Moles/Vol] 3.7 mmol/L 3.5-5.1 [facility] Work Phone: Protein [Mass/Vol] 8.4 g/dL 6.4-8.2 [facility] Work Phone: Sodium [Moles/Vol] 130 mmol/L 136-145 [facility] Work Phone: WBC (Bld) [#/Vol] 11.5 10*3/uL 4.4-11.0 [facility] Work Phone: Blood erythrocytes count (nu mber/volume)on 11-16-2021 RBC (Bld) [#/Vol] 4.19 10*6/uL 4.2-5.4 [facility] Work Phone: Blood hemoglobin measurement (mass/volume)on 11-16-2021 Hemoglobin (Bld) [Mass/Vol] 12.7 g/dL 12.0-15.0 [facility] Work Phone: Blood lymphocytes/100 leukoc yteson 11-16-2021 Lymphocytes/100 WBC (Bld) 14.5 % 19-41 [facility] Work Phone: [phone] Blood monocytes/100 leukocyt eson 11-16-2021 Monocytes/100 WBC (Bld) 5.7 % 0-10 [facility] Work Phone: Blood platelet mean volumeon 11-16-2021 Platelet mean volume (Bld) [Entitic vol] 9.4 fL 6.2-12.0 [facility] Work Phone: Determination of erythrocyte mean corpuscular volume (MCV)on 11-16-2021 MCV (RBC) [Entitic vol] 93.3 fL 81-99 [facility] Work Phone: Hematocrit Auto (Bld) [Volum e fraction]on 11-16-2021 Hematocrit (Bld) [Volume fraction] 39.1 % 37-47 [facility] Work Phone: Laboratory - Chemistry and C hemistry - challengeon 11-16-2021 ALP [Catalytic activity/Vol] 94 U/L 45-117 [facility] Work Phone: ALT [Catalytic activity/Vol] 19 U/L 13-56 [facility] Work Phone: CO2 [Moles/Vol] 24.0 mmol/L 21.0-32.0 [facility] Work Phone: Globulin (S) [Mass/Vol] 4.4 g/dL 2.2-4.2 [facility] Work Phone: Lipase [Catalytic activity/Vol] 77 U/L 73-393 [facility] Work Phone: Magnesium [Mass/Vol] 2.0 mg/dL 1.6-2.6 [facility] Work Phone: Urea nitrogen/Creatinine [Mass ratio] 31.3 mg/mg 10-20 [facility] Work Phone: Laboratory - Hematology and Cell countson 11-16-2021 Erythrocyte distribution width (RBC) [Entitic vol] 48.6 fL 35.1-43.9 [facility] Work Phone: Erythrocyte distribution width (RBC) [Ratio] 14.3 % 11.6-14.6 [facility] Work Phone: Immature granulocytes/100 WBC (Bld) 0.800 % 0.0-0.9 [facility] Work Phone: Comment on above: IG% - Immature Granu locytes (promyelocytes, myelocytes and metamyelocytes) > 1% indicates that a LEFT SHIFT is Present. MCH (RBC) [Entitic mass] 30.3 pg 27.0-32.0 [facility] Work Phone: Nucleated RBC/100 WBC (Bld) [Ratio] 0 % 0-5 [facility] Work Phone: MCHC Auto (RBC) [Mass/Vol]on 11-16-2021 MCHC (RBC) [Mass/Vol] 32.5 g/dL 32-36 [facility] Work Phone: No Panel Informationon 11-16 Estimated Creatinine Clearance Calc 27.82 ml/min [facility] Work Phone: Estimated GFR (MDRD) Amer 37 mL/min >60 [facility] Work Phone: Comment on above: GFR Calc Estimated GFR (MDRD) Non-Af Amer 30 mL/min >60 [facility] Work Phone: Comment on above: Non- GFR Calc Platelets bldon 11-16-2021 Platelets (Bld) [#/Vol] 512 10*3/uL 150-450 [facility] Work Phone: Serum or plasma albumin jamey urement (mass/volume)on 11-16-2021 Albumin [Mass/Vol] 4.0 g/dL 3.2-5.0 [facility] Work Phone: Serum or plasma albumin/glob ulin mass ratioon 11-16-2021 Albumin/Globulin [Mass ratio] 0.9 {ratio} 0.9-2.4 [facility] Work Phone: Serum or plasma calcium jamey urement (mass/volume)on 11-16-2021 Calcium [Mass/Vol] 8.9 mg/dL 8.5-10.1 [facility] Work Phone: Serum or plasma creatinine m easurement (mass/volume)on 11-16-2021 Creatinine [Mass/Vol] 1.79 mg/dL 0.55-1.02 [facility] Work Phone: Comment on above: The validity of the calculated GFR & GFRAA in patients over 70 years has not been determined. Clinical correlation is essential. Serum or plasma urea nitroge n measurement (mass/volume)on 11-16-2021 Urea nitrogen [Mass/Vol] 56 mg/dL 7-18 [facility] Work Phone: Thin prep Papanicolaou smear with manual screeningon 11-16-2021 Thin prep Papanicolaou smear with manual screening 11 U/L 15-37 [facility] Work Phone: Thin prep Papanicolaou smear with manual screening 11 5-15 [facility] Work Phone: Absolute lymphocyte counton 11-10-2021 Lymphocytes Auto (Unsp spec) [#/Vol] 2.13 10*3/uL 0.83-4.51 [facility] Work Phone: Basophil percentageon 2021 Basophils/100 WBC (Bld) 0.5 % 0-1 [facility] Work Phone: Bilirubin [Mass/Vol] 0.20 mg/dL 0.20-1.00 [facility] Work Phone: Comment on above: For patients on eltr ombopag therapy, use of Dimension [place] TBIL is not recommended. Chloride [Moles/Vol] 110 mmol/L 98-107 [facility] Work Phone: Eosinophils/100 WBC (Bld) 1.5 % 0-5 [facility] Work Phone: Glucose [Mass/Vol] 149 mg/dL 74-106 [facility] Work Phone: Comment on above: Fasting Glucose resu lt greater than or equal to 126 mg/dL suggests DIABETES MELLITUS per A.D.A. criteria. Neutrophils (Bld) [#/Vol] 3.6 10*3/uL 2.0-7.7 [facility] Work Phone: Neutrophils/100 WBC (Bld) 55.5 % 47-70 [facility] Work Phone: Potassium [Moles/Vol] 3.7 mmol/L 3.5-5.1 [facility] Work Phone: Protein [Mass/Vol] 5.7 g/dL 6.4-8.2 [facility] Work Phone: [phone] Sodium [Moles/Vol] 140 mmol/L 136-145 [facility] Work Phone: WBC (Bld) [#/Vol] 6.5 10*3/uL 4.4-11.0 [facility] Work Phone: Blood erythrocytes count (nu mber/volume)on 11-10-2021 RBC (Bld) [#/Vol] 2.77 10*6/uL 4.2-5.4 [facility] Work Phone: Blood hemoglobin measurement (mass/volume)on 11-10-2021 Hemoglobin (Bld) [Mass/Vol] 8.6 g/dL 12.0-15.0 [facility] Work Phone: Blood lymphocytes/100 leukoc yteson 11-10-2021 Lymphocytes/100 WBC (Bld) 32.9 % 19-41 [facility] Work Phone: Blood monocytes/100 leukocyt eson 11-10-2021 Monocytes/100 WBC (Bld) 9.3 % 0-10 [facility] Work Phone: Blood platelet mean volumeon 11-10-2021 Platelet mean volume (Bld) [Entitic vol] 9.2 fL 6.2-12.0 [facility] Work Phone: Determination of erythrocyte mean corpuscular volume (MCV)on 11-10-2021 MCV (RBC) [Entitic vol] 94.6 fL 81-99 [facility] Work Phone: Glucose Glucometer (BldC) [M ass/Vol]on 11-10-2021 Glucose [Mass/Vol] 151 mg/dL 74-106 [facility] Work Phone: Comment on above: MANAGEMENT OF PATIEN T CARE PER NURSING PROTOCOL Hematocrit Auto (Bld) [Volum e fraction]on 11-10-2021 Hematocrit (Bld) [Volume fraction] 26.2 % 37-47 [facility] Work Phone: Hemoglobin in reticulocytes (mass per reticulocyte)on 11-10-2021 Hemoglobin (Reticulocytes) [Entitic mass] 34.0 pg 30-35 [facility] Work Phone: Iron measurement (mass/mass) on 11-10-2021 Iron (Unsp spec) [Mass/Mass] 28 ug/dL 50-170 [facility] Work Phone: Laboratory - Chemistry and C hemistry - challengeon 11-10-2021 ALP [Catalytic activity/Vol] 69 U/L 45-117 [facility] Work Phone: ALT [Catalytic activity/Vol] 16 U/L 13-56 [facility] Work Phone: CO2 [Moles/Vol] 23.0 mmol/L 21.0-32.0 [facility] Work Phone: Globulin (S) [Mass/Vol] 2.9 g/dL 2.2-4.2 [facility] Work Phone: Magnesium [Mass/Vol] 1.7 mg/dL 1.6-2.6 [facility] Work Phone: Urea nitrogen/Creatinine [Mass ratio] 16.5 mg/mg 10-20 [facility] Work Phone: Laboratory - Hematology and Cell countson 11-10-2021 Erythrocyte distribution width (RBC) [Entitic vol] 49.7 fL 35.1-43.9 [facility] Work Phone: Erythrocyte distribution width (RBC) [Ratio] 14.4 % 11.6-14.6 [facility] Work Phone: Immature granulocytes/100 WBC (Bld) 0.300 % 0.0-0.9 [facility] Work Phone: Comment on above: IG% - Immature Granu locytes (promyelocytes, myelocytes and metamyelocytes) > 1% indicates that a LEFT SHIFT is Present. MCH (RBC) [Entitic mass] 31.0 pg 27.0-32.0 [facility] Work Phone: Nucleated RBC/100 WBC (Bld) [Ratio] 0 % 0-5 [facility] Work Phone: MCHC Auto (RBC) [Mass/Vol]on 11-10-2021 MCHC (RBC) [Mass/Vol] 32.8 g/dL 32-36 [facility] Work Phone: No Panel Informationon 11-10 Estimated Creatinine Clearance Calc 62.65 ml/min [facility] Work Phone: Estimated GFR (MDRD) Amer 94 mL/min >60 [facility] Work Phone: Comment on above: GFR Calc Estimated GFR (MDRD) Non-Af Amer 78 mL/min >60 [facility] Work Phone: Comment on above: Non- GFR Calc Immature Reticulocyte Fraction 12.60 % 3.00-15.90 [facility] Work Phone: Reticulocyte Count 1.92 % 0.5-1.5 [facility] Work Phone: Total Iron Binding Capacity 308 ug/dL 250-450 [facility] Work Phone: Platelets bldon 11-10-2021 Platelets (Bld) [#/Vol] 307 10*3/uL 150-450 [facility] Work Phone: Serum or plasma albumin jamey urement (mass/volume)on 11-10-2021 Albumin [Mass/Vol] 2.8 g/dL 3.2-5.0 [facility] Work Phone: Serum or plasma albumin/glob ulin mass ratioon 11-10-2021 Albumin/Globulin [Mass ratio] 1.0 {ratio} 0.9-2.4 [facility] Work Phone: Serum or plasma calcium jamey urement (mass/volume)on 11-10-2021 Calcium [Mass/Vol] 8.4 mg/dL 8.5-10.1 [facility] Work Phone: Serum or plasma creatinine m easurement (mass/volume)on 11-10-2021 Creatinine [Mass/Vol] 0.79 mg/dL 0.55-1.02 [facility] Work Phone: Comment on above: The validity of the calculated GFR & GFRAA in patients over 70 years has not been determined. Clinical correlation is essential. Serum or plasma ferritin joshua surement (mass/volume)on 11-10-2021 Ferritin [Mass/Vol] 19 ng/mL 8-252 [facility] Work Phone: Serum or plasma iron saturat ion measurement (mass fraction)on 11-10-2021 Iron saturation [Mass fraction] 9.1 % 15.0-55.0 [facility] Work Phone: Serum or plasma urea nitroge n measurement (mass/volume)on 11-10-2021 Urea nitrogen [Mass/Vol] 13 mg/dL 7-18 [facility] Work Phone: Thin prep Papanicolaou smear with manual screeningon 11-10-2021 Thin prep Papanicolaou smear with manual screening 9 U/L 15-37 [facility] Work Phone: Thin prep Papanicolaou smear with manual screening 7 5-15 [facility] Work Phone: Absolute lymphocyte counton 11-07-2021 Lymphocytes Auto (Unsp spec) [#/Vol] 2.43 10*3/uL 0.83-4.51 [facility] Work Phone: Basophil percentageon 2021 Basophil percentage 0-5 SEEN /hpf 0-5 [facility] Work Phone: Basophils/100 WBC (Bld) 0.3 % 0-1 [facility] Work Phone: Bilirubin [Mass/Vol] 0.60 mg/dL 0.20-1.00 [facility] Work Phone: Comment on above: For patients on eltr ombopag therapy, use of Dimension [place] TBIL is not recommended. Chloride [Moles/Vol] 98 mmol/L 98-107 [facility] Work Phone: Eosinophils/100 WBC (Bld) 0.7 % 0-5 [facility] Work Phone: Glucose [Mass/Vol] 169 mg/dL 74-106 [facility] Work Phone: Comment on above: Fasting Glucose resu lt greater than or equal to 126 mg/dL suggests DIABETES MELLITUS per A.D.A. criteria. Neutrophils (Bld) [#/Vol] 13.9 10*3/uL 2.0-7.7 [facility] Work Phone: Neutrophils/100 WBC (Bld) 79.4 % 47-70 [facility] Work Phone: Potassium [Moles/Vol] 4.5 mmol/L 3.5-5.1 [facility] Work Phone: Protein [Mass/Vol] 9.7 g/dL 6.4-8.2 [facility] Work Phone: Sodium [Moles/Vol] 133 mmol/L 136-145 [facility] Work Phone: WBC (Bld) [#/Vol] 17.5 10*3/uL 4.4-11.0 [facility] Work Phone: Bilirubin Test strip Ql (U)o n 11-07-2021 Bilirubin Ql (U) Negative Negative [facility] Work Phone: Blood erythrocytes count (nu mber/volume)on 11-07-2021 RBC (Bld) [#/Vol] 4.82 10*6/uL 4.2-5.4 [facility] Work Phone: Blood hemoglobin measurement (mass/volume)on 11-07-2021 Hemoglobin (Bld) [Mass/Vol] 14.7 g/dL 12.0-15.0 [facility] Work Phone: Blood lymphocytes/100 leukoc yteson 11-07-2021 Lymphocytes/100 WBC (Bld) 13.9 % 19-41 [facility] Work Phone: Blood monocytes/100 leukocyt eson 11-07-2021 Monocytes/100 WBC (Bld) 5.3 % 0-10 [facility] Work Phone: [phone] Blood platelet mean volumeon 11-07-2021 Platelet mean volume (Bld) [Entitic vol] 9.2 fL 6.2-12.0 [facility] Work Phone: Determination of erythrocyte mean corpuscular volume (MCV)on 11-07-2021 MCV (RBC) [Entitic vol] 92.9 fL 81-99 [facility] Work Phone: Hematocrit Auto (Bld) [Volum e fraction]on 11-07-2021 Hematocrit (Bld) [Volume fraction] 44.8 % 37-47 [facility] Work Phone: Hyaline casts LM.LPF (Urine sed) [#/Area]on 11-07-2021 Hyaline casts (Urine sed) [#/Area] 0 /[LPF] 0-5 [facility] Work Phone: Ketones Test strip Ql (U)on 11-07-2021 Ketones Ql (U) Negative Negative [facility] Work Phone: Laboratory - Chemistry and C hemistry - challengeon 11-07-2021 ALP [Catalytic activity/Vol] 131 U/L 45-117 [facility] Work Phone: ALT [Catalytic activity/Vol] 23 U/L 13-56 [facility] Work Phone: CO2 [Moles/Vol] 23.0 mmol/L 21.0-32.0 [facility] Work Phone: Globulin (S) [Mass/Vol] 5.0 g/dL 2.2-4.2 [facility] Work Phone: Lipase [Catalytic activity/Vol] 95 U/L 73-393 [facility] Work Phone: Urea nitrogen/Creatinine [Mass ratio] 13.8 mg/mg 10-20 [facility] Work Phone: Laboratory - Hematology and Cell countson 11-07-2021 Erythrocyte distribution width (RBC) [Entitic vol] 49.3 fL 35.1-43.9 [facility] Work Phone: Erythrocyte distribution width (RBC) [Ratio] 14.4 % 11.6-14.6 [facility] Work Phone: Immature granulocytes/100 WBC (Bld) 0.400 % 0.0-0.9 [facility] Work Phone: Comment on above: IG% - Immature Granu locytes (promyelocytes, myelocytes and metamyelocytes) > 1% indicates that a LEFT SHIFT is Present. MCH (RBC) [Entitic mass] 30.5 pg 27.0-32.0 [facility] Work Phone: Nucleated RBC/100 WBC (Bld) [Ratio] 0 % 0-5 [facility] Work Phone: MCHC Auto (RBC) [Mass/Vol]on 11-07-2021 MCHC (RBC) [Mass/Vol] 32.8 g/dL 32-36 [facility] Work Phone: Mucus LM Ql (Urine sed)on Mucus Ql (Urine sed) 1+ /hpf [facility] Work Phone: Nitrite Test strip Ql (U)on 11-07-2021 Nitrite Ql (U) Negative Negative [facility] Work Phone: No Panel Informationon 11-07 Estimated Creatinine Clearance Calc 23.03 ml/min [facility] Work Phone: Estimated GFR (MDRD) Amer 29 mL/min >60 [facility] Work Phone: Comment on above: GFR Calc Estimated GFR (MDRD) Non-Af Amer 24 mL/min >60 [facility] Work Phone: Comment on above: Non- GFR Calc Troponin I High Sensitivity 6 pg/mL 3.0-54.0 [facility] Work Phone: Comment on above: Please Note: New Brandi t Units and Gender Specific Reference Ranges. For more information see Policy Stat Procedure [place] High Sensitivity Troponin (TNIH) and attachments. Platelets bldon 11-07-2021 Platelets (Bld) [#/Vol] 685 10*3/uL 150-450 [facility] Work Phone: Protein Test strip Ql (U)on 11-07-2021 Protein Ql (U) 30 mg/dl Negative [facility] Work Phone: Serum or plasma albumin jamey urement (mass/volume)on 11-07-2021 Albumin [Mass/Vol] 4.7 g/dL 3.2-5.0 [facility] Work Phone: Serum or plasma albumin/glob ulin mass ratioon 11-07-2021 Albumin/Globulin [Mass ratio] 0.9 {ratio} 0.9-2.4 [facility] Work Phone: Serum or plasma calcium jamey urement (mass/volume)on 11-07-2021 Calcium [Mass/Vol] 10.6 mg/dL 8.5-10.1 [facility] Work Phone: Serum or plasma creatinine m easurement (mass/volume)on 11-07-2021 Creatinine [Mass/Vol] 2.18 mg/dL 0.55-1.02 [facility] Work Phone: Comment on above: The validity of the calculated GFR & GFRAA in patients over 70 years has not been determined. Clinical correlation is essential. Serum or plasma urea nitroge n measurement (mass/volume)on 11-07-2021 Urea nitrogen [Mass/Vol] 30 mg/dL 7-18 [facility] Work Phone: Squamous epithelial cells de tection in urine sediment by light microscopyon 11-07-2021 Epithelial cells.squamous LM Ql (Urine sed) 5-10 SEEN /hpf 5-10 [facility] Work Phone: Thin prep Papanicolaou smear with manual screeningon 11-07-2021 Thin prep Papanicolaou smear with manual screening 16 U/L 15-37 [facility] Work Phone: Thin prep Papanicolaou smear with manual screening 12 5-15 [facility] Work Phone: Urine blood detectionon 10-20 RBC Ql (U) Negative Negative [facility] Work Phone: RBC Ql (U) 0 SEEN /hpf 0-5 [facility] Work Phone: Urine clarityon 11-07-2021 Clarity (U) Clear Clear [facility] Work Phone: Urine color determinationon 11-07-2021 Color (U) Yellow Yellow [facility] Work Phone: Urine glucose detectionon Glucose Ql (U) Normal mg/dl Normal [facility] Work Phone: Urine leukocyte esterase det ection by dipstickon 11-07-2021 Leukocyte esterase Test strip Ql (U) 25 /ul Negative [facility] Work Phone: Urine pHon 11-07-2021 pH (U) 5.0 [pH] 5.0 - 8.0 [facility] Work Phone: Urine sediment bacteria coun t by microscopy (number/high power field)on 11-07-2021 Bacteria LM.HPF (Urine sed) [#/Area] 1 /[HPF] None Seen [facility] Work Phone: Urine specific gravity measu rementon 11-07-2021 Specific gravity (U) [Rel density] 1.025 1.002-1.03 0 [facility] Work Phone: Urobilinogen Auto test strip Ql (U)on 11-07-2021 Urobilinogen Ql (U) Normal mg/dl Normal [facility] Work Phone: Laboratory - Chemistry and C hemistry - challengeon 11-05-2021 Free T4 [Mass/Vol] 1.73 ng/dL 0.76-1.46 [facility] Work Phone: No Panel Informationon 11-05 Thyroid Stimulating Hormone (TSH) 0.05 uIU/mL 0.358-3.74 [facility] Work Phone: Basophil percentageon 2021 Chloride [Moles/Vol] 102 mmol/L 98-107 [facility] Work Phone: Glucose [Mass/Vol] 120 mg/dL 74-106 [facility] Work Phone: Comment on above: Fasting Glucose resu lt from 100 to 125 mg/dL suggests IMPAIRED HOMEOSTASIS per A.D.A. criteria. Potassium [Moles/Vol] 3.2 mmol/L 3.5-5.1 [facility] Work Phone: Sodium [Moles/Vol] 137 mmol/L 136-145 [facility] Work Phone: Laboratory - Chemistry and C hemistry - challengeon 10-19-2021 CO2 [Moles/Vol] 27.0 mmol/L 21.0-32.0 [facility] Work Phone: Urea nitrogen/Creatinine [Mass ratio] 16.3 mg/mg 10-20 [facility] Work Phone: No Panel Informationon 10-19 Estimated GFR (MDRD) Amer 53 mL/min >60 [facility] Work Phone: Comment on above: GFR Calc Estimated GFR (MDRD) Non-Af Amer 44 mL/min >60 [facility] Work Phone: Comment on above: Non- GFR Calc Serum or plasma calcium jamey urement (mass/volume)on 10-19-2021 Calcium [Mass/Vol] 8.7 mg/dL 8.5-10.1 [facility] Work Phone: Serum or plasma creatinine m easurement (mass/volume)on 10-19-2021 Creatinine [Mass/Vol] 1.29 mg/dL 0.55-1.02 [facility] Work Phone: Comment on above: The validity of the calculated GFR & GFRAA in patients over 70 years has not been determined. Clinical correlation is essential. Serum or plasma urea nitroge n measurement (mass/volume)on 10-19-2021 Urea nitrogen [Mass/Vol] 21 mg/dL 7-18 [facility] Work Phone: Thin prep Papanicolaou smear with manual screeningon 10-19-2021 Thin prep Papanicolaou smear with manual screening 8 5-15 [facility] Work Phone: Absolute lymphocyte counton 10-12-2021 Lymphocytes Auto (Unsp spec) [#/Vol] 1.67 10*3/uL 0.83-4.51 [facility] Work Phone: Basophil percentageon 2021 Basophils/100 WBC (Bld) 0.6 % 0-1 [facility] Work Phone: [phone] Chloride [Moles/Vol] 105 mmol/L 98-107 [facility] Work Phone: Eosinophils/100 WBC (Bld) 3.0 % 0-5 [facility] Work Phone: Glucose [Mass/Vol] 132 mg/dL 74-106 [facility] Work Phone: Comment on above: Fasting Glucose resu lt greater than or equal to 126 mg/dL suggests DIABETES MELLITUS per A.D.A. criteria. Neutrophils (Bld) [#/Vol] 7.4 10*3/uL 2.0-7.7 [facility] Work Phone: Neutrophils/100 WBC (Bld) 72.2 % 47-70 [facility] Work Phone: Potassium [Moles/Vol] 4.5 mmol/L 3.5-5.1 [facility] Work Phone: Comment on above: Slight Hemolysis, Re sult may be falsely increased. Sodium [Moles/Vol] 137 mmol/L 136-145 [facility] Work Phone: WBC (Bld) [#/Vol] 10.2 10*3/uL 4.4-11.0 [facility] Work Phone: [phone] Blood erythrocytes count (nu mber/volume)on 10-12-2021 RBC (Bld) [#/Vol] 3.79 10*6/uL 4.2-5.4 [facility] Work Phone: Blood hemoglobin measurement (mass/volume)on 10-12-2021 Hemoglobin (Bld) [Mass/Vol] 11.9 g/dL 12.0-15.0 [facility] Work Phone: Blood lymphocytes/100 leukoc yteson 10-12-2021 Lymphocytes/100 WBC (Bld) 16.3 % 19-41 [facility] Work Phone: Blood monocytes/100 leukocyt eson 10-12-2021 Monocytes/100 WBC (Bld) 7.5 % 0-10 [facility] Work Phone: Blood platelet mean volumeon 10-12-2021 Platelet mean volume (Bld) [Entitic vol] 9.5 fL 6.2-12.0 [facility] Work Phone: Determination of erythrocyte mean corpuscular volume (MCV)on 10-12-2021 MCV (RBC) [Entitic vol] 95.8 fL 81-99 [facility] Work Phone: Hematocrit Auto (Bld) [Volum e fraction]on 10-12-2021 Hematocrit (Bld) [Volume fraction] 36.3 % 37-47 [facility] Work Phone: Laboratory - Chemistry and C hemistry - challengeon 10-12-2021 CO2 [Moles/Vol] 22.0 mmol/L 21.0-32.0 [facility] Work Phone: Natriuretic peptide B (Bld) [Mass/Vol] 124.7 pg/mL 0-100 [facility] Work Phone: Urea nitrogen/Creatinine [Mass ratio] 18.3 mg/mg 10-20 [facility] Work Phone: Laboratory - Hematology and Cell countson 10-12-2021 Erythrocyte distribution width (RBC) [Entitic vol] 51.6 fL 35.1-43.9 [facility] Work Phone: Erythrocyte distribution width (RBC) [Ratio] 14.8 % 11.6-14.6 [facility] Work Phone: Immature granulocytes/100 WBC (Bld) 0.400 % 0.0-0.9 [facility] Work Phone: Comment on above: IG% - Immature Granu locytes (promyelocytes, myelocytes and metamyelocytes) > 1% indicates that a LEFT SHIFT is Present. MCH (RBC) [Entitic mass] 31.4 pg 27.0-32.0 [facility] Work Phone: Nucleated RBC/100 WBC (Bld) [Ratio] 0 % 0-5 [facility] Work Phone: MCHC Auto (RBC) [Mass/Vol]on 10-12-2021 MCHC (RBC) [Mass/Vol] 32.8 g/dL 32-36 [facility] Work Phone: No Panel Informationon 10-12 Estimated GFR (MDRD) Amer 52 mL/min >60 [facility] Work Phone: Comment on above: GFR Calc Estimated GFR (MDRD) Non-Af Amer 43 mL/min >60 [facility] Work Phone: Comment on above: Non- GFR Calc Platelets bldon 10-12-2021 Platelets (Bld) [#/Vol] 503 10*3/uL 150-450 [facility] Work Phone: Serum or plasma calcium jamey urement (mass/volume)on 10-12-2021 Calcium [Mass/Vol] 9.1 mg/dL 8.5-10.1 [facility] Work Phone: Serum or plasma creatinine m easurement (mass/volume)on 10-12-2021 Creatinine [Mass/Vol] 1.31 mg/dL 0.55-1.02 [facility] Work Phone: Comment on above: The validity of the calculated GFR & GFRAA in patients over 70 years has not been determined. Clinical correlation is essential. Serum or plasma urea nitroge n measurement (mass/volume)on 10-12-2021 Urea nitrogen [Mass/Vol] 24 mg/dL 7-18 [facility] Work Phone: Thin prep Papanicolaou smear with manual screeningon 10-12-2021 Thin prep Papanicolaou smear with manual screening 10 5-15 [facility] Work Phone: LEFT HEART CATHon 09-17-2021 LEFT HEART CATH This is a summary re port. The complete report is available in the patient's medical record. If you cannot access the medical record, please contact the sending organization for a detailed fax or copy. Impression: ?? Successful PCI of the LAD and RCA with stent apposition confirmed on intravascular ultrasound. Recommendations: ?? Continue aspirin 81 mg daily indefinitely and ticagrelor for 1 year ?? Target LDL<70 mg/dL??with a high-intensity statin ?? Optimal lifestyle habits including smoking cessation, adopting a Mediterranean diet, and regular moderate-intensity exercise (>3 hours weekly) ?? Participation in cardiac rehabilitation ?? Optimal BP <120/80 mm Hg ?? Anticoagulation and drop aspirin 81 mg when appropriate. Coronary Findings Diagnostic Dominance: Right Left Main: Ost LM to Dist LM lesion is 25% stenosed. Left Anterior Descending: Mid LAD lesion is 80% stenosed. SANDRA flow is 3. The lesion is type C and located at the bifurcation. The lesion is moderately calcified. The lesion is not chronically occluded. The lesion was previously treated using a drug-eluting stent. Previous treatment took place >2 years ago. First Diagonal Branch: 1st Diag lesion is 20% stenosed. Ramus Intermedius: The vessel is small. Right Coronary Artery: Prox RCA to Mid RCA lesion is 20% stenosed. SANDRA flow is 3. The lesion is type C and located at the bifurcation. The lesion is moderately calcified. The lesion is not chronically occluded. The lesion was previously treated using a drug-eluting stent. Previous treatment took place at an unknown date. The lesion has in-stent restenosis. Right Posterior Descending Artery: RPDA lesion is 90% stenosed. Intervention Mid LAD lesion: Stent: Drug-eluting stent was successfully placed. The stent used was a STENT 3.00 X 12 SYNERGY XD MR. Stent was deployed by way of balloon expansion. Post-Intervention Lesion Assessment: The intervention was successful. Post-intervention SANDRA flow is 3. There were no complications. Ultrasound (IVUS) was performed. The stent appears adequately expanded by IVUS. The stent demonstrates adequate apposition by IVUS. Severe plaque burden was detected. There is a 0% residual stenosis post intervention. Prox RCA to Mid RCA lesion: Stent: Drug-eluting stent was successfully placed. The stent used was a STENT 3.00 X 18 XIENCE SKYPOINT RX. Post-Intervention Lesion Assessment: The intervention was successful. Post-intervention SANDRA flow is 3. There were no complications. Ultrasound (IVUS) was performed. The stent appears adequately expanded by IVUS. The stent demonstrates adequate apposition by IVUS. Severe plaque burden was detected. IVUS has determined that the lesion is concentric. There is a 0% residual stenosis post intervention. Aorta The aortic root is normal. Sinus of Valsalva is normal. Normal [facility] ECG 12 Leadon 09-10-2021 Atrial Rate [facility] [place] [facility] P-R Interval [facility] Q-T Interval [facility] Q-T Interval (corrected) [facility] QRS Duration [facility] QTC Calculation (Bezet) [facility] R [place] [facility] T [place] [facility] Ventricular [facility] Basophil percentageon 2021 Bilirubin [Mass/Vol] 0.40 mg/dL 0.20-1.00 [facility] Work Phone: Comment on above: For patients on eltr ombopag therapy, use of Dimension [place] TBIL is not recommended. Chloride [Moles/Vol] 102 mmol/L 98-107 [facility] Work Phone: Cholesterol [Mass/Vol] 149 mg/dL <200 [facility] Work Phone: Comment on above: <200 mg/dL Desirable 200-240 mg/dL Borderline >240 mg/dL High Risk Glucose [Mass/Vol] 101 mg/dL 74-106 [facility] Work Phone: Comment on above: Fasting Glucose resu lt from 100 to 125 mg/dL suggests IMPAIRED HOMEOSTASIS per A.D.A. criteria. Potassium [Moles/Vol] 4.3 mmol/L 3.5-5.1 [facility] Work Phone: Protein [Mass/Vol] 7.9 g/dL 6.4-8.2 [facility] Work Phone: Sodium [Moles/Vol] 136 mmol/L 136-145 [facility] Work Phone: Triglyceride [Mass/Vol] 209 mg/dL <199 [facility] Work Phone: Comment on above: The drugs N-Acetylcy steine and Metamizole may falsely depress this assay.Serum Triglycerides Reference Interval Normal <150 mg/dL Borderline high 150 - 199 mg/dL High 200 - 499 mg/dL Very High > or = 500 mg/dL Laboratory - Chemistry and C hemistry - challengeon 07-26-2021 ALP [Catalytic activity/Vol] 82 U/L 45-117 [facility] Work Phone: ALT [Catalytic activity/Vol] 21 U/L 13-56 [facility] Work Phone: CO2 [Moles/Vol] 27.0 mmol/L 21.0-32.0 [facility] Work Phone: Free T4 [Mass/Vol] 1.79 ng/dL 0.76-1.46 [facility] Work Phone: Globulin (S) [Mass/Vol] 3.8 g/dL 2.2-4.2 [facility] Work Phone: Urea nitrogen/Creatinine [Mass ratio] 15.2 mg/mg 10-20 [facility] Work Phone: Laboratory - Hematology and Cell countson 07-26-2021 HbA1c (Bld) [Mass fraction] 6.2 % 4.2-6.3 [facility] Work Phone: No Panel Informationon 07-26 Estimated GFR (MDRD) Amer 68 mL/min >60 [facility] Work Phone: Comment on above: GFR Calc Estimated GFR (MDRD) Non-Af Amer 56 mL/min >60 [facility] Work Phone: Comment on above: Non- GFR Calc Thyroid Stimulating Hormone (TSH) 0.06 uIU/mL 0.358-3.74 [facility] Work Phone: Serum or plasma albumin jamey urement (mass/volume)on 07-26-2021 Albumin [Mass/Vol] 4.1 g/dL 3.2-5.0 [facility] Work Phone: Serum or plasma albumin/glob ulin mass ratioon 07-26-2021 Albumin/Globulin [Mass ratio] 1.1 {ratio} 0.9-2.4 [facility] Work Phone: Serum or plasma calcium jamey urement (mass/volume)on 07-26-2021 Calcium [Mass/Vol] 9.1 mg/dL 8.5-10.1 [facility] Work Phone: Serum or plasma cholesterol in HDL measurement (mass/volume)on 07-26-2021 Cholesterol in HDL [Mass/Vol] 50 mg/dL >40 [facility] Work Phone: Comment on above: The drugs N-Acetylcy steine and Metamizole may falsely depress this assay. Reference Range HDL <40 mg/dL Low HDL Cholesterol HDL >or= 60 mg/dL High HDL Cholesterol Serum or plasma cholesterol in VLDL measurement (mass/volume)on 07-26-2021 Cholesterol in VLDL [Mass/Vol] 42 mg/dL 5-40 [facility] Work Phone: Serum or plasma creatinine m easurement (mass/volume)on 07-26-2021 Creatinine [Mass/Vol] 1.05 mg/dL 0.55-1.02 [facility] Work Phone: Comment on above: The validity of the calculated GFR & GFRAA in patients over 70 years has not been determined. Clinical correlation is essential. Serum or plasma low density lipoprotein (LDL) cholesterol measurement (mass/volume)on 07-26-2021 Cholesterol in LDL [Mass/Vol] 57 mg/dL 0-130 [facility] Work Phone: Serum or plasma urea nitroge n measurement (mass/volume)on 07-26-2021 Urea nitrogen [Mass/Vol] 16 mg/dL 7-18 [facility] Work Phone: Thin prep Papanicolaou smear with manual screeningon 07-26-2021 Thin prep Papanicolaou smear with manual screening 7 U/L 15-37 [facility] Work Phone: Thin prep Papanicolaou smear with manual screening 7 5-15 [facility] Work Phone: Absolute lymphocyte counton 07-03-2021 Lymphocytes Auto (Unsp spec) [#/Vol] 1.39 10*3/uL 0.83-4.51 [facility] Work Phone: Amorphous sediment detection in urine sediment by light microscopyon 07-03-2021 Amorphous sediment LM Ql (Urine sed) 1+ URATE [facility] Work Phone: Basophil percentageon 2021 Basophil percentage 0-5 SEEN /hpf [facility] Work Phone: Basophils/100 WBC (Bld) 0.3 % 0-1 [facility] Work Phone: Bilirubin [Mass/Vol] 0.60 mg/dL 0.20-1.00 [facility] Work Phone: Comment on above: For patients on eltr ombopag therapy, use of Dimension [place] TBIL is not recommended. Chloride [Moles/Vol] 104 mmol/L 98-107 [facility] Work Phone: Eosinophils/100 WBC (Bld) 1.7 % 0-5 [facility] Work Phone: Glucose [Mass/Vol] 103 mg/dL 74-106 [facility] Work Phone: Comment on above: Fasting Glucose resu lt from 100 to 125 mg/dL suggests IMPAIRED HOMEOSTASIS per A.D.A. criteria. Neutrophils (Bld) [#/Vol] 9.8 10*3/uL 2.0-7.7 [facility] Work Phone: Neutrophils/100 WBC (Bld) 81.7 % 47-70 [facility] Work Phone: Potassium [Moles/Vol] 4.0 mmol/L 3.5-5.1 [facility] Work Phone: Protein [Mass/Vol] 8.9 g/dL 6.4-8.2 [facility] Work Phone: Sodium [Moles/Vol] 135 mmol/L 136-145 [facility] Work Phone: WBC (Bld) [#/Vol] 12.0 10*3/uL 4.4-11.0 [facility] Work Phone: Bilirubin Test strip Ql (U)o n 07-03-2021 Bilirubin Ql (U) Negative Negative [facility] Work Phone: Blood erythrocytes count (nu mber/volume)on 07-03-2021 RBC (Bld) [#/Vol] 4.42 10*6/uL 4.2-5.4 [facility] Work Phone: Blood hemoglobin measurement (mass/volume)on 07-03-2021 Hemoglobin (Bld) [Mass/Vol] 14.3 g/dL 12.0-15.0 [facility] Work Phone: Blood lymphocytes/100 leukoc yteson 07-03-2021 Lymphocytes/100 WBC (Bld) 11.6 % 19-41 [facility] Work Phone: Blood monocytes/100 leukocyt eson 07-03-2021 Monocytes/100 WBC (Bld) 4.2 % 0-10 [facility] Work Phone: Blood platelet mean volumeon 07-03-2021 Platelet mean volume (Bld) [Entitic vol] 9.0 fL 6.2-12.0 [facility] Work Phone: Determination of erythrocyte mean corpuscular volume (MCV)on 07-03-2021 MCV (RBC) [Entitic vol] 94.1 fL 81-99 [facility] Work Phone: Direct bilirubinon 2 Bilirubin.direct [Mass/Vol] 0.11 mg/dL 0.00-0.30 [facility] Work Phone: Hematocrit Auto (Bld) [Volum e fraction]on 07-03-2021 Hematocrit (Bld) [Volume fraction] 41.6 % 37-47 [facility] Work Phone: Ketones Test strip Ql (U)on 07-03-2021 Ketones Ql (U) 5 mg/dl Negative [facility] Work Phone: Laboratory - Chemistry and C hemistry - challengeon 07-03-2021 ALP [Catalytic activity/Vol] 90 U/L 45-117 [facility] Work Phone: ALT [Catalytic activity/Vol] 25 U/L 13-56 [facility] Work Phone: CO2 [Moles/Vol] 23.0 mmol/L 21.0-32.0 [facility] Work Phone: Globulin (S) [Mass/Vol] 4.3 g/dL 2.2-4.2 [facility] Work Phone: Lipase [Catalytic activity/Vol] 49 U/L 73-393 [facility] Work Phone: Urea nitrogen/Creatinine [Mass ratio] 22.0 mg/mg 10-20 [facility] Work Phone: Laboratory - Hematology and Cell countson 07-03-2021 Erythrocyte distribution width (RBC) [Entitic vol] 50.7 fL 35.1-43.9 [facility] Work Phone: Erythrocyte distribution width (RBC) [Ratio] 14.6 % 11.6-14.6 [facility] Work Phone: Immature granulocytes/100 WBC (Bld) 0.500 % 0.0-0.9 [facility] Work Phone: Comment on above: IG% - Immature Granu locytes (promyelocytes, myelocytes and metamyelocytes) > 1% indicates that a LEFT SHIFT is Present. MCH (RBC) [Entitic mass] 32.4 pg 27.0-32.0 [facility] Work Phone: Nucleated RBC/100 WBC (Bld) [Ratio] 0 % 0-5 [facility] Work Phone: MCHC Auto (RBC) [Mass/Vol]on 07-03-2021 MCHC (RBC) [Mass/Vol] 34.4 g/dL 32-36 [facility] Work Phone: Mucus LM Ql (Urine sed)on Mucus Ql (Urine sed) 0 SEEN /hpf [facility] Work Phone: Nitrite Test strip Ql (U)on 07-03-2021 Nitrite Ql (U) Negative Negative [facility] Work Phone: No Panel Informationon 07-03 Estimated Creatinine Clearance Calc 45.23 ml/min [facility] Work Phone: Estimated GFR (MDRD) Amer 56 mL/min >60 [facility] Work Phone: Comment on above: GFR Calc Estimated GFR (MDRD) Non-Af Amer 47 mL/min >60 [facility] Work Phone: Comment on above: Non- GFR Calc Platelets bldon 07-03-2021 Platelets (Bld) [#/Vol] 496 10*3/uL 150-450 [facility] Work Phone: Protein Test strip Ql (U)on 07-03-2021 Protein Ql (U) 15 mg/dl Negative [facility] Work Phone: Serum or plasma albumin jamey urement (mass/volume)on 07-03-2021 Albumin [Mass/Vol] 4.6 g/dL 3.2-5.0 [facility] Work Phone: Serum or plasma calcium jamey urement (mass/volume)on 07-03-2021 Calcium [Mass/Vol] 8.7 mg/dL 8.5-10.1 [facility] Work Phone: Serum or plasma creatinine m easurement (mass/volume)on 07-03-2021 Creatinine [Mass/Vol] 1.23 mg/dL 0.55-1.02 [facility] Work Phone: Comment on above: The validity of the calculated GFR & GFRAA in patients over 70 years has not been determined. Clinical correlation is essential. Serum or plasma urea nitroge n measurement (mass/volume)on 07-03-2021 Urea nitrogen [Mass/Vol] 27 mg/dL 7-18 [facility] Work Phone: Squamous epithelial cells de tection in urine sediment by light microscopyon 07-03-2021 Epithelial cells.squamous LM Ql (Urine sed) 10-25 SEEN /hpf [facility] Work Phone: Thin prep Papanicolaou smear with manual screeningon 07-03-2021 Thin prep Papanicolaou smear with manual screening 14 U/L 15-37 [facility] Work Phone: Thin prep Papanicolaou smear with manual screening 8 5-15 [facility] Work Phone: Urine blood detectionon 06-22 RBC Ql (U) Negative Negative [facility] Work Phone: RBC Ql (U) 0 SEEN /hpf [facility] Work Phone: Urine clarityon 07-03-2021 Clarity (U) Sl. Cloudy Clear [facility] Work Phone: Urine color determinationon 07-03-2021 Color (U) Yellow Yellow [facility] Work Phone: Urine glucose detectionon Glucose Ql (U) Normal mg/dl Normal [facility] Work Phone: Urine leukocyte esterase det ection by dipstickon 07-03-2021 Leukocyte esterase Test strip Ql (U) 25 /ul Negative [facility] Work Phone: Urine pHon 07-03-2021 pH (U) 5.0 [pH] [facility] Work Phone: Urine sediment bacteria coun t by microscopy (number/high power field)on 07-03-2021 Bacteria LM.HPF (Urine sed) [#/Area] 0 /[HPF] None Seen [facility] Work Phone: Urine specific gravity measu rementon 07-03-2021 Specific gravity (U) [Rel density] 1.020 [facility] Work Phone: Urobilinogen Auto test strip Ql (U)on 07-03-2021 Urobilinogen Ql (U) Normal mg/dl Normal [facility] Work Phone: SARS-COV-2,NAAon 01-24-2020 SARS-COV-2, JUAN Not Detected Normal [facility] Comment on above: Result Comment: Mey grant range: Not Detected (NOTE) This nucleic acid amplification test was developed and its performance characteristics determined by [employer]. Nucleic acid amplification tests include PCR and TMA. This test has not been FDA cleared or approved. This test has been authorized by FDA under an Emergency Use Authorization (EUA). This test is only authorized for the duration of time the declaration that circumstances exist justifying the authorization of the emergency use of in vitro diagnostic tests for detection of SARS-CoV-2 virus and/or diagnosis of COVID-19 infection under section 564(b)(1) of the Act, 21 U.S.C. 360bbb-3(b) (1), unless the authorization is terminated or revoked sooner. When diagnostic testing is negative, the possibility of a false negative result should be considered in the context of a patient's recent exposures and the presence of clinical signs and symptoms consistent with COVID-19. An individual without symptoms of COVID- 19 and who is not shedding SARS-CoV-2 virus would expect to have a negative (not detected) result in this assay. BMP FASTINGon 01-23-2020 Creatinine [Mass/Vol] 1.17 mg/dL High 0.52-1.04 [facility] Comment on above: Performed By: #### A CBC, ITROT, CMPF #### Testing performed at [address] [address] EST. GFR, >60 Normal [facility] Comment on above: Performed By: #### A CBC, ITROT, CMPF #### Testing performed at [address] [address] EST. GFR,Non 50 ml/min/1.73sq.m Normal [facility] Comment on above: Performed By: #### A CBC, ITROT, CMPF #### Testing performed at [address] [address] GFR/1.73 sq M predicted among non-blacks MDRD (S/P/Bld) [Vol rate/Area] Average GFR for 60-69 years old = 85. Normal [facility] Comment on above: Result Comment: Marketing Budget Analyst [place] Kidney disease, GFR = <60. Kidney failure, GFR = <15. The GFR estimate is not adjusted for extreme body surface area or acute process, nor has it been validated for women or ethnic groups other than and . Performed By: #### A CBC, ITROT, CMPF #### Testing performed at [address] [address] Urea nitrogen [Mass/Vol] 22 mg/dL High 7-20 [facility] Comment on above: Performed By: #### A CBC, ITROT, CMPF #### Testing performed at [address] [address] Anion gap [Moles/Vol] 14 mmol/L Normal 8-16 [facility] Comment on above: Performed By: #### A CBC, ITROT, CMPF #### Testing performed at [address] [address] Calcium [Mass/Vol] 9.1 mg/dL Normal 8.4-10.2 [facility] Comment on above: Performed By: #### A CBC, ITROT, CMPF #### Testing performed at [address] [address] Chloride [Moles/Vol] 101 mmol/L Normal 98-107 [facility] Comment on above: Performed By: #### A CBC, ITROT, CMPF #### Testing performed at [address] [address] CO2 [Moles/Vol] 22 mmol/L Normal 22-30 [facility] Comment on above: Performed By: #### A CBC, ITROT, CMPF #### Testing performed at [address] [address] Glucose [Mass/Vol] 75 mg/dL Normal 70-100 [facility] Comment on above: Result Comment: NORMAL <100 mg/dL PREDIABETES 101-126 mg/dL DIABETES 126 mg/dL or higher Performed By: #### A CBC, ITROT, CMPF #### Testing performed at [address] [address] Potassium [Moles/Vol] 4.6 mmol/L Normal 3.5-5.1 [facility] Comment on above: Performed By: #### A CBC, ITROT, CMPF #### Testing performed at [address] [address] Sodium [Moles/Vol] 137 mmol/L Normal 136-145 [facility] Comment on above: Performed By: #### A CBC, ITROT, CMPF #### Testing performed at [address] [address] CBCon 01-23-2020 ABSOLUTE BAS 0.1 10*3/uL Normal 0.0-0.2 [facility] Comment on above: Performed By: #### A CBC, PT, PTT ####Testing performed at [place] [id number] ABSOLUTE EOS 0.20 10*3/uL Normal 0.0-0.7 [facility] Comment on above: Performed By: #### A CBC, PT, PTT ####Testing performed at [place] [id number] ABSOLUTE NEUTROPHIL COUNT 4.6 10*3/uL Normal 1.4-6.5 [facility] Comment on above: Performed By: #### A CBC, PT, PTT ####Testing performed at [address] [address] Basophils/100 WBC (Bld) 1.2 % Normal 0.0-2.0 [facility] Comment on above: Performed By: #### A CBC, PT, PTT ####Testing performed at [address] [address] DTYPE AUTO DIFF Normal [facility] Comment on above: Performed By: #### A CBC, PT, PTT ####Testing performed at [address] [address] Eosinophils/100 WBC (Bld) 2.6 % Normal 0.0-11.0 [facility] Comment on above: Performed By: #### A CBC, PT, PTT ####Testing performed at [place] [id number] Lymphocytes (Bld) [#/Vol] 2.20 10*3/uL Normal 1.2-3.4 [facility] Comment on above: Performed By: #### A CBC, PT, PTT ####Testing performed at [address] [address] Lymphocytes/100 WBC (Bld) 28.5 % Normal 20.0-55.0 [facility] Comment on above: Performed By: #### A CBC, PT, PTT ####Testing performed at [address] [address] Monocytes (Bld) [#/Vol] 0.6 10*3/uL Normal 0.0-0.7 [facility] Comment on above: Performed By: #### A CBC, PT, PTT ####Testing performed at [address] [address] Monocytes/100 WBC (Bld) 8.2 % Normal 0.0-10.0 [facility] Comment on above: Performed By: #### A CBC, PT, PTT ####Testing performed at [address] [address] Neutrophils/100 WBC (Bld) 59.5 % Normal 37.0-75.0 [facility] Comment on above: Performed By: #### A CBC, PT, PTT ####Testing performed at [address] [address] Erythrocyte distribution width (RBC) [Ratio] 15.6 % High 11.5-14.5 [facility] Comment on above: Performed By: #### A CBC, PT, PTT ####Testing performed at [address] [address] Hematocrit (Bld) [Volume fraction] 37.6 % Normal 36.0-48.0 [facility] Comment on above: Performed By: #### A CBC, PT, PTT ####Testing performed at [address] [address] Hemoglobin (Bld) [Mass/Vol] 12.2 g/dL Normal 12.0-16.0 [facility] Comment on above: Performed By: #### A CBC, PT, PTT ####Testing performed at [address] [address] MCH (RBC) [Entitic mass] 31.0 pg Normal 26.0-35.0 [facility] Comment on above: Performed By: #### A CBC, PT, PTT ####Testing performed at [address] [address] MCHC (RBC) [Mass/Vol] 32.5 g/dL Normal 27.0-37.0 [facility] Comment on above: Performed By: #### A CBC, PT, PTT ####Testing performed at [address] [address] MCV (RBC) [Entitic vol] 95.3 fL Normal 80.0-100.0 [facility] Comment on above: Performed By: #### A CBC, PT, PTT ####Testing performed at [address] [address] Platelet mean volume (Bld) [Entitic vol] 6.7 fL Low 7.4-11.0 [facility] Comment on above: Performed By: #### A CBC, PT, PTT ####Testing performed at [address] [address] Platelets (Bld) [#/Vol] 479 10*3/uL High 130.0-400. 0 [facility] Comment on above: Performed By: #### A CBC, PT, PTT ####Testing performed at [address] [address] RBC (Bld) [#/Vol] 3.94 10*6/uL Low 4.0-5.4 [facility] Comment on above: Performed By: #### A CBC, PT, PTT ####Testing performed at [address] [address] WBC (Bld) [#/Vol] 7.8 10*3/uL Normal 3.6-11.0 [facility] Comment on above: Performed By: #### A CBC, PT, PTT ####Testing performed at [address] [address] PROTIMEon 01-23-2020 INR Coag (PPP) [Relative time] 0.91 {INR} Normal 0.88-1.12 [facility] Comment on above: Result Comment: 2.0-3.0 THERAPEUTIC RANGE 2.5-3.5 MECHANICAL VALVE RANGE Performed By: #### A CBC, PT, PTT ####Testing performed at [address] [address] PT Coag (PPP) [Time] 12.2 s Normal 11.8-14.4 [facility] Comment on above: Performed By: #### A CBC, PT, PTT ####Testing performed at [address] [address] PTTon 01-23-2020 aPTT Coag (Bld) [Time] 25.9 s Normal 22.4-34.7 [facility] Comment on above: Result Comment: CARDIAC AND PE/DVT THERAPUTIC RANGE 69-97 SEC VASCULAR/THREATENED LIMB THERAPUTIC RANGE 80-112 SEC Performed By: #### A CBC, ITROT, CMPF #### Testing performed at [address] [address] LARGE JOINT/BURSA INJECTION AND/OR ASPIRATION: R subacromial bursaon 12-24-2019 [place] 0 8:21 AM LARGE JOINT/BURSA INJECTION AND/OR ASPIRATION: R subacromial bursa Date/Time: 12/24/2019 1:30 PM Supporting Documentation Indications: pain Procedure Details: Location: shoulder - R subacromial bursa Local Anesthetic: ethyl chloride (cold spray) Needle size: 22 G Medication Verification: I have personally verified and performed the final check of the medication(s) used in this procedure prior to administration. The following items were included during the verification process for medication(s) administered: drug name, strength, volume, expiration, physical integrity and appearance of the medication(s). Medications administered: 3 mL lidocaine 10 mg/mL; 1 mL triamcinolone 40 MG/ML Patient tolerance: patient tolerated the procedure well with no immediate complications Consent: Consent was obtained prior to the procedure after discussion of the risks, benefits and alternatives, and expected outcomes were discussed with the patient. The possibilities of reaction to medication, bleeding, infection, the need for additional procedures, failure to diagnosis a condition, and creating a complication requiring operation were discussed with the patient. The patient concurred with the proposed plan, giving consent. Preparation: Patient was prepped in the usual sterile fashion. The patient was prepped with Betadine and alcohol. [facility] CELIAC DISEASE COMP PANELon 10-17-2019 DEAMINATED GLIADIN AB, IGA 7 units Normal 0-19 [facility] Comment on above: Result Comment: (NOT E) Negative 0 - 19 Weak Positive 20 - 30 Moderate to Strong Positive >30 Performed By: #### F X #### Testing performed at [address] [address] #### LCELCP #### Testing performed at [address] [address] DEAMINATED GLIADIN AB, IGG 1 units Normal 0-19 [facility] Comment on above: Result Comment: (NOT E) Negative 0 - 19 Weak Positive 20 - 30 Moderate to Strong Positive >30 Performed By: #### F X #### Testing performed at [address] [address] #### LCELCP #### Testing performed at [address] [address] ENDOMYSIAL AB IGA Negative Normal Negative [facility] Comment on above: Performed By: #### F X #### Testing performed at [address] [address] #### LCELCP #### Testing performed at [address] [address] TTG- IGA <2 Normal 0-3 [facility] Comment on above: Result Comment: (NOT E) Negative 0 - 3 Weak Positive 4 - 10 Positive >10 Tissue Transglutaminase (tTG) has been identified as the endomysial antigen. Studies have demonstr- ated that endomysial IgA antibodies have over 99% specificity for gluten sensitive enteropathy. Performed By: #### F X #### Testing performed at [address] [address] #### LCELCP #### Testing performed at [address] [address] TTG-IGG <2 Normal 0-5 [facility] Comment on above: Result Comment: (NOT E) Negative 0 - 5 Weak Positive 6 - 9 Positive >9 Performed By: #### F X #### Testing performed at [address] [address] #### LCELCP #### Testing performed at [facility] [address] [place], [place] [address] [address] IgA [Mass/Vol] 201 mg/dL Normal 87-352 [facility] Comment on above: Result Comment: PERF ORMED AT [facility] Performed By: #### F X #### Testing performed at [address] [address] #### LCELCP #### Testing performed at [address] [address] CBCon 10-16-2019 ABSOLUTE BAS 0.1 10*3/uL Normal 0.0-0.2 [facility] Comment on above: Performed By: #### A CBC, RENF, MG, RTSH, T42 ####Testing performed at [address] [address] ABSOLUTE EOS 0.30 10*3/uL Normal 0.0-0.7 [facility] Comment on above: Performed By: #### A CBC, RENF, MG, RTSH, T42 ####Testing performed at [address] [address] ABSOLUTE NEUTROPHIL COUNT 4.3 10*3/uL Normal 1.4-6.5 [facility] Comment on above: Performed By: #### A CBC, RENF, MG, RTSH, T42 ####Testing performed at [address] [address] Basophils/100 WBC (Bld) 0.8 % Normal 0.0-2.0 [facility] Comment on above: Performed By: #### A CBC, RENF, MG, RTSH, T42 ####Testing performed at [address] [address] DTYPE AUTO DIFF Normal [facility] Comment on above: Performed By: #### A CBC, RENF, MG, RTSH, T42 ####Testing performed at [address] [address] Eosinophils/100 WBC (Bld) 4.2 % Normal 0.0-11.0 [facility] Comment on above: Performed By: #### A CBC, RENF, MG, RTSH, T42 ####Testing performed at [address] [address] Lymphocytes (Bld) [#/Vol] 2.60 10*3/uL Normal 1.2-3.4 [facility] Comment on above: Performed By: #### A CBC, RENF, MG, RTSH, T42 ####Testing performed at [address] [address] Lymphocytes/100 WBC (Bld) 32.8 % Normal 20.0-55.0 [facility] Comment on above: Performed By: #### A CBC, RENF, MG, RTSH, T42 ####Testing performed at [address] [address] Monocytes (Bld) [#/Vol] 0.7 10*3/uL Normal 0.0-0.7 [facility] Comment on above: Performed By: #### A CBC, RENF, MG, RTSH, T42 ####Testing performed at [address] [address] Monocytes/100 WBC (Bld) 8.3 % Normal 0.0-10.0 [facility] Comment on above: Performed By: #### A CBC, RENF, MG, RTSH, T42 ####Testing performed at [address] [address] Neutrophils/100 WBC (Bld) 53.9 % Normal 37.0-75.0 [facility] Comment on above: Performed By: #### A CBC, RENF, MG, RTSH, T42 ####Testing performed at [address] [address] Erythrocyte distribution width (RBC) [Ratio] 15.7 % High 11.5-14.5 [facility] Comment on above: Performed By: #### A CBC, RENF, MG, RTSH, T42 ####Testing performed at [address] [address] Hematocrit (Bld) [Volume fraction] 28.4 % Low 36.0-48.0 [facility] Comment on above: Performed By: #### A CBC, RENF, MG, RTSH, T42 ####Testing performed at [address] [address] Hemoglobin (Bld) [Mass/Vol] 9.6 g/dL Low 12.0-16.0 [facility] Comment on above: Performed By: #### A CBC, RENF, MG, RTSH, T42 ####Testing performed at [address] [address] MCH (RBC) [Entitic mass] 32.2 pg Normal 26.0-35.0 [facility] Comment on above: Performed By: #### A CBC, RENF, MG, RTSH, T42 ####Testing performed at [address] [address] MCHC (RBC) [Mass/Vol] 33.9 g/dL Normal 27.0-37.0 [facility] Comment on above: Performed By: #### A CBC, RENF, MG, RTSH, T42 ####Testing performed at [address] [address] MCV (RBC) [Entitic vol] 95.2 fL Normal 80.0-100.0 [facility] Comment on above: Performed By: #### A CBC, RENF, MG, RTSH, T42 ####Testing performed at [address] [address] Platelet mean volume (Bld) [Entitic vol] 7.3 fL Low 7.4-11.0 [facility] Comment on above: Performed By: #### A CBC, RENF, MG, RTSH, T42 ####Testing performed at [address] [address] Platelets (Bld) [#/Vol] 283 10*3/uL Normal 130.0-400. 0 [facility] Comment on above: Performed By: #### A CBC, RENF, MG, RTSH, T42 ####Testing performed at [address] [address] RBC (Bld) [#/Vol] 2.99 10*6/uL Low 4.0-5.4 [facility] Comment on above: Performed By: #### A CBC, RENF, MG, RTSH, T42 ####Testing performed at [address] [address] WBC (Bld) [#/Vol] 8.0 10*3/uL Normal 3.6-11.0 [facility] Comment on above: Performed By: #### A CBC, RENF, MG, RTSH, T42 ####Testing performed at [address] [address] CBC, EDIF, PLATELETon 2019 ABSOLUTE BASOPHIL COUNT 0.1 10*3/uL 0 - 0.2 10*3/uL [facility] Basophils/100 WBC (Bld) 0.8 % 0 - 2 % [facility] Differential cell count method Nom (Bld) AUTO DIFF % [facility] Eosinophils (Bld) [#/Vol] 0.30 10*3/uL 0 - 0.7 10*3/uL [facility] Eosinophils/100 WBC (Bld) 4.2 % 0 - 11 % [facility] Erythrocyte distribution width (RBC) [Ratio] 15.7 % High 11.5 - 14.5 % [facility] Hematocrit (Bld) [Volume fraction] 28.4 % Low 36 - 48 % [facility] Hemoglobin (Bld) [Mass/Vol] 9.6 g/dL Low [facility] Lymphocytes (Bld) [#/Vol] 2.60 10*3/uL 1.2 - 3.4 10*3/uL [facility] Lymphocytes/100 WBC (Bld) 32.8 % 20 - 55 % [facility] MCH (RBC) [Entitic mass] 32.2 pg 26 - 35 PG [facility] MCHC (RBC) [Mass/Vol] 33.9 g/dL [facility] MCV (RBC) [Entitic vol] 95.2 fL [facility] Monocytes (Bld) [#/Vol] 0.7 10*3/uL 0 - 0.7 10*3/uL [facility] Monocytes/100 WBC (Bld) 8.3 % 0 - 10 % [facility] Neutrophils (Bld) [#/Vol] 4.3 10*3/uL 1.4 - 6.5 10*3/uL [facility] Neutrophils/100 WBC (Bld) 53.9 % 37 - 75 % [facility] Platelet mean volume (Bld) [Entitic vol] 7.3 fL Low [facility] Platelets (Bld) [#/Vol] 283 10*3/uL 130 - 400 10*3/uL [facility] RBC (Bld) [#/Vol] 2.99 10*6/uL Low 4 - 5.4 10*6/uL [facility] WBC (Bld) [#/Vol] 8.0 10*3/uL 3.6 - 11 10*3/uL [facility] FREE T4on 10-16-2019 Free T4 [Mass/Vol] 0.80 ng/dL Normal 0.61-1.12 [facility] Comment on above: Performed By: #### A CBC, RENF, MG, RTSH, T42 ####Testing performed at [address] [address] ISTAT TROPONIN Ion 0 Troponin I.cardiac [Mass/Vol] 0.02 ng/mL Normal 0-0.08 [facility] Comment on above: Performed By: #### I TROT ####Testing performed at [address] [address] Troponin I.cardiac [Mass/Vol] 0.02 ng/mL Normal 0-0.08 [facility] Comment on above: Performed By: #### I TROT ####Testing performed at [address] [address] MAGNESIUMon 10-16-2019 Magnesium [Mass/Vol] 1.5 mg/dL Low 1.6-2.3 [facility] Comment on above: Performed By: #### A CBC, RENF, MG, RTSH, T42 ####Testing performed at [address] [address] Magnesium [Mass/Vol] 1.5 mg/dL Low [facility] MRSA SCREENon 10-16-2019 MRSA DNA JUAN+probe Ql (Unsp spec) Negative Normal NEGATIVE [facility] Comment on above: Result Comment: TEST ING PERFORMED BY PCR Performed By: #### M RSAST ####Testing performed at [facility] [place] [address] Otheron 10-16-2019 Interpretation and review of laboratory results Abnormal [employer] RENAL FUNCTION PANELon 10-15 Albumin [Mass/Vol] 3.3 G/dl Low 3.5 - 5 G/dl [facility] [employer] Calcium [Mass/Vol] 7.9 mg/dL Low [facility] [employer] Chloride [Moles/Vol] 106 mmol/L [facility] [employer] CO2 [Moles/Vol] 25 mmol/L [facility] [employer] Creatinine [Mass/Vol] 0.96 mg/dL [employer] GFR/1.73 sq M predicted among blacks MDRD (S/P/Bld) [Vol rate/Area] mL/min/{1.73_m2} ml/min/1.7 3sq.m [facility] [employer] GFR/1.73 sq M predicted among non-blacks MDRD (S/P/Bld) [Vol rate/Area] Average GFR for 60-69 years old = 85. [employer] Comment on above: Chronic Kidney disea se, GFR = <60. Kidney failure, GFR = <15. The GFR estimate is not adjusted for extreme body surface area or acute process, nor has it been validated for women or ethnic groups other than and . GFR/1.73 sq M predicted among non-blacks MDRD (S/P/Bld) [Vol rate/Area] mL/min/{1.73_m2} ml/min/1.7 3sq.m [employer] Glucose post fast [Mass/Vol] 99 mg/dL [facility] Comment on above: NORMAL <100 mg/dL PREDIABETES 101-126 mg/dL DIABETES 126 mg/dL or higher Phosphate [Mass/Vol] 4.0 mg/dL [facility] [employer] Potassium [Moles/Vol] 4.1 mmol/L [facility] [employer] Sodium [Moles/Vol] 138 mmol/L [facility] [employer] Urea nitrogen [Mass/Vol] 20 mg/dL [facility] RENAL PANEL,FASTINGon 2019 Albumin [Mass/Vol] 3.3 G/dl Low 3.5-5.0 [facility] Comment on above: Performed By: #### A CBC, RENF, MG, RTSH, T42 ####[place] [address] Creatinine [Mass/Vol] 0.96 mg/dL Normal 0.52-1.04 [facility] Comment on above: Performed By: #### A CBC, RENF, MG, RTSH, T42 ####Testing performed at [place] [id number] EST. GFR, >60 Normal [facility] Comment on above: Performed By: #### A CBC, RENF, MG, RTSH, T42 ####[place] [address] EST. GFR,Non >60 Normal [facility] Comment on above: Performed By: #### A CBC, RENF, MG, RTSH, T42 ####[place] [address] GFR/1.73 sq M predicted among non-blacks MDRD (S/P/Bld) [Vol rate/Area] Average GFR for 60-69 years old = 85. Normal [facility] Comment on above: Result Comment: [employer] Kidney disease, GFR = <60. Kidney failure, GFR = <15. The GFR estimate is not adjusted for extreme body surface area or acute process, nor has it been validated for women or ethnic groups other than and . Performed By: #### A CBC, RENF, MG, RTSH, T42 ####[place] [address] PHOSPHOROUS 4.0 MG/DL Normal 2.5-4.5 [facility] Comment on above: Performed By: #### A CBC, RENF, MG, RTSH, T42 ####Testing performed at [place] [id number] Urea nitrogen [Mass/Vol] 20 mg/dL Normal 7-20 [facility] Comment on above: Performed By: #### A CBC, RENF, MG, RTSH, T42 ####Testing performed at [address] [address] Calcium [Mass/Vol] 7.9 mg/dL Low 8.4-10.2 [facility] Comment on above: Performed By: #### A CBC, RENF, MG, RTSH, T42 ####Testing performed at [address] [address] Chloride [Moles/Vol] 106 mmol/L Normal 98-107 [facility] Comment on above: Performed By: #### A CBC, RENF, MG, RTSH, T42 ####Testing performed at [address] [address] CO2 [Moles/Vol] 25 mmol/L Normal 22-30 [facility] Comment on above: Performed By: #### A CBC, RENF, MG, RTSH, T42 ####Testing performed at [address] [address] Glucose [Mass/Vol] 99 mg/dL Normal 70-100 [facility] Comment on above: Result Comment: NORMAL <100 mg/dL PREDIABETES 101-126 mg/dL DIABETES 126 mg/dL or higher Performed By: #### A CBC, RENF, MG, RTSH, T42 ####Testing performed at [address] [address] Potassium [Moles/Vol] 4.1 mmol/L Normal 3.5-5.1 [facility] Comment on above: Performed By: #### A CBC, RENF, MG, RTSH, T42 ####Testing performed at [address] [address] Sodium [Moles/Vol] 138 mmol/L Normal 136-145 [facility] Comment on above: Performed By: #### A CBC, RENF, MG, RTSH, T42 ####Testing performed at [address] [address] SCREEN: MRSA ONLY, NARES (IS OLATION SCREEN)on 10-16-2019 MRSA isol Org specific cx Ql (Nose) Negative NEGATIVE [facility] STAPHYOCOCCUS AUREUS BY PCR Negative NEGATIVE [facility] Comment on above: TESTING PERFORMED BY PCR T4 FREEon 10-16-2019 Free T4 [Mass/Vol] 0.80 ng/dL [facility] TROPONINon 10-16-2019 Troponin I.cardiac [Mass/Vol] 0.02 ng/mL 0 - 0.08 ng/mL [facility] Troponin I.cardiac [Mass/Vol] 0.02 ng/mL 0 - 0.08 ng/mL [facility] TSH W/FT4 REFLEXon 0 TSH Qn 5.779 m[IU]/L High [facility] TSH,REFLEX FREE T4on 020 TSH,REFLEX FREE T4 5.779 uIU/ML High 0.45-5.33 [facility] Comment on above: Performed By: #### A CBC, RENF, MG, RTSH, T42 ####Testing performed at [address] [address] CBCon 10-15-2019 ABSOLUTE BAS 0.1 10*3/uL Normal 0.0-0.2 [facility] Comment on above: Performed By: #### A CBC, ITROT, CMPF #### Testing performed at [address] [address] ABSOLUTE EOS 0.40 10*3/uL Normal 0.0-0.7 [facility] Comment on above: Performed By: #### A CBC, ITROT, CMPF #### Testing performed at [address] [address] ABSOLUTE NEUTROPHIL COUNT 8.2 10*3/uL High 1.4-6.5 [facility] Comment on above: Performed By: #### A CBC, ITROT, CMPF #### Testing performed at [address] [address] Basophils/100 WBC (Bld) 0.5 % Normal 0.0-2.0 [facility] Comment on above: Performed By: #### A CBC, ITROT, CMPF #### Testing performed at [address] [address] DTYPE AUTO DIFF Normal [facility] Comment on above: Performed By: #### A CBC, ITROT, CMPF #### Testing performed at [address] [address] Eosinophils/100 WBC (Bld) 3.2 % Normal 0.0-11.0 [facility] Comment on above: Performed By: #### A CBC, ITROT, CMPF #### Testing performed at [address] [address] Lymphocytes (Bld) [#/Vol] 2.20 10*3/uL Normal 1.2-3.4 [facility] Comment on above: Performed By: #### A CBC, ITROT, CMPF #### Testing performed at [address] [address] Lymphocytes/100 WBC (Bld) 19.1 % Low 20.0-55.0 [facility] Comment on above: Performed By: #### A CBC, ITROT, CMPF #### Testing performed at [address] [address] Monocytes (Bld) [#/Vol] 0.7 10*3/uL Normal 0.0-0.7 [facility] Comment on above: Performed By: #### A CBC, ITROT, CMPF #### Testing performed at [address] [address] Monocytes/100 WBC (Bld) 6.0 % Normal 0.0-10.0 [facility] Comment on above: Performed By: #### A CBC, ITROT, CMPF #### Testing performed at [address] [address] Neutrophils/100 WBC (Bld) 71.2 % Normal 37.0-75.0 [facility] Comment on above: Performed By: #### A CBC, ITROT, CMPF #### Testing performed at [address] [address] Erythrocyte distribution width (RBC) [Ratio] 15.8 % High 11.5-14.5 [facility] Comment on above: Performed By: #### A CBC, ITROT, CMPF #### Testing performed at [address] [address] Hematocrit (Bld) [Volume fraction] 34.1 % Low 36.0-48.0 [facility] Comment on above: Performed By: #### A CBC, ITROT, CMPF #### Testing performed at [address] [address] Hemoglobin (Bld) [Mass/Vol] 11.4 g/dL Low 12.0-16.0 [facility] Comment on above: Performed By: #### A CBC, ITROT, CMPF #### Testing performed at [address] [address] MCH (RBC) [Entitic mass] 31.7 pg Normal 26.0-35.0 [facility] Comment on above: Performed By: #### A CBC, ITROT, CMPF #### Testing performed at [address] [address] MCHC (RBC) [Mass/Vol] 33.4 g/dL Normal 27.0-37.0 [facility] Comment on above: Performed By: #### A CBC, ITROT, CMPF #### Testing performed at [address] [address] MCV (RBC) [Entitic vol] 94.9 fL Normal 80.0-100.0 [facility] Comment on above: Performed By: #### A CBC, ITROT, CMPF #### Testing performed at [address] [address] Platelet mean volume (Bld) [Entitic vol] 7.5 fL Normal 7.4-11.0 [facility] Comment on above: Performed By: #### A CBC, ITROT, CMPF #### Testing performed at [address] [address] Platelets (Bld) [#/Vol] 372 10*3/uL Normal 130.0-400. 0 [facility] Comment on above: Performed By: #### A CBC, ITROT, CMPF #### Testing performed at [address] [address] RBC (Bld) [#/Vol] 3.60 10*6/uL Low 4.0-5.4 [facility] Comment on above: Performed By: #### A CBC, ITROT, CMPF #### Testing performed at [address] [place] [address] WBC (Bld) [#/Vol] 11.4 10*3/uL High 3.6-11.0 [facility] Comment on above: Performed By: #### A CBC, ITROT, CMPF #### Testing performed at [address] [address] CBC, EDIF, PLATELETon 2019 ABSOLUTE BASOPHIL COUNT 0.1 10*3/uL 0 - 0.2 10*3/uL [facility] Basophils/100 WBC (Bld) 0.5 % 0 - 2 % [facility] Differential cell count method Nom (Bld) AUTO DIFF % [facility] Eosinophils (Bld) [#/Vol] 0.40 10*3/uL 0 - 0.7 10*3/uL [facility] Eosinophils/100 WBC (Bld) 3.2 % 0 - 11 % [facility] Erythrocyte distribution width (RBC) [Ratio] 15.8 % High 11.5 - 14.5 % [facility] Hematocrit (Bld) [Volume fraction] 34.1 % Low 36 - 48 % [facility] Hemoglobin (Bld) [Mass/Vol] 11.4 g/dL Low [facility] Lymphocytes (Bld) [#/Vol] 2.20 10*3/uL 1.2 - 3.4 10*3/uL [facility] Lymphocytes/100 WBC (Bld) 19.1 % Low 20 - 55 % [facility] MCH (RBC) [Entitic mass] 31.7 pg 26 - 35 PG [facility] MCHC (RBC) [Mass/Vol] 33.4 g/dL [facility] MCV (RBC) [Entitic vol] 94.9 fL [facility] Monocytes (Bld) [#/Vol] 0.7 10*3/uL 0 - 0.7 10*3/uL [facility] Monocytes/100 WBC (Bld) 6.0 % 0 - 10 % [facility] Neutrophils (Bld) [#/Vol] 8.2 10*3/uL High 1.4 - 6.5 10*3/uL [facility] Neutrophils/100 WBC (Bld) 71.2 % 37 - 75 % [facility] Platelet mean volume (Bld) [Entitic vol] 7.5 fL [facility] Platelets (Bld) [#/Vol] 372 10*3/uL 130 - 400 10*3/uL [facility] RBC (Bld) [#/Vol] 3.60 10*6/uL Low 4 - 5.4 10*6/uL [facility] WBC (Bld) [#/Vol] 11.4 10*3/uL High 3.6 - 11 10*3/uL [facility] CMP FASTINGon 10-15-2019 A:G RATIO 1.5 RATIO Normal 1.3-2.2 [facility] Comment on above: Performed By: #### A CBC, ITROT, CMPF #### Testing performed at [address] [address] Albumin [Mass/Vol] 4.1 G/dl Normal 3.5-5.0 [facility] Comment on above: Performed By: #### A CBC, ITROT, CMPF #### Testing performed at [address] [address] ALP [Catalytic activity/Vol] 50 U/L Normal 38-126 [facility] Comment on above: Performed By: #### A CBC, ITROT, CMPF #### Testing performed at [address] [address] ALT [Catalytic activity/Vol] 16 U/L Normal 14-54 [facility] Comment on above: Performed By: #### A CBC, ITROT, CMPF #### Testing performed at [address] [address] AST [Catalytic activity/Vol] 16 U/L Normal 15-41 [facility] Comment on above: Performed By: #### A CBC, ITROT, CMPF #### Testing performed at [address] [address] Bilirubin [Mass/Vol] 0.4 mg/dL Normal 0.2-1.2 [facility] Comment on above: Performed By: #### A CBC, ITROT, CMPF #### Testing performed at [address] [place] [address] Creatinine [Mass/Vol] 1.58 mg/dL High 0.52-1.04 [facility] Comment on above: Performed By: #### A CBC, ITROT, CMPF #### Testing performed at [address] [address] EST. GFR, 42 ml/min/1.73sq.m [facility] Comment on above: Performed By: #### A CBC, ITROT, CMPF #### Testing performed at [address] [address] EST. GFR,Non 35 ml/min/1.73sq.m [facility] Comment on above: Performed By: #### A CBC, ITROT, CMPF #### Testing performed at [address] [address] GFR/1.73 sq M predicted among non-blacks MDRD (S/P/Bld) [Vol rate/Area] Average GFR for 60-69 years old = 85. [facility] Comment on above: Result Comment: [employer] Kidney disease, GFR = <60. Kidney failure, GFR = <15. The GFR estimate is not adjusted for extreme body surface area or acute process, nor has it been validated for women or ethnic groups other than and . Performed By: #### A CBC, ITROT, CMPF #### Testing performed at [address] [address] Protein [Mass/Vol] 6.8 g/dL Normal 6.3-8.2 [facility] Comment on above: Performed By: #### A CBC, ITROT, CMPF #### Testing performed at [address] [address] Urea nitrogen [Mass/Vol] 31 mg/dL High 7-20 [facility] Comment on above: Performed By: #### A CBC, ITROT, CMPF #### Testing performed at [address] [address] Calcium [Mass/Vol] 8.6 mg/dL Normal 8.4-10.2 [facility] Comment on above: Performed By: #### A CBC, ITROT, CMPF #### Testing performed at [address] [address] Chloride [Moles/Vol] 100 mmol/L Normal 98-107 [facility] Comment on above: Performed By: #### A CBCAIMEEOT CMPF #### Testing performed at [address] [address] CO2 [Moles/Vol] 22 mmol/L Normal 22-30 [facility] Comment on above: Performed By: #### A CBCRAJINDER CMPF #### Testing performed at [address] [address] Glucose [Mass/Vol] 78 mg/dL Normal 70-100 [facility] Comment on above: Result Comment: NORMAL <100 mg/dL PREDIABETES 101-126 mg/dL DIABETES 126 mg/dL or higher Performed By: #### A CBCRAJINDER CMPF #### Testing performed at [address] [address] Potassium [Moles/Vol] 4.5 mmol/L Normal 3.5-5.1 [facility] Comment on above: Performed By: #### A CBCRAJINDER CMPF #### Testing performed at [address] [address] Sodium [Moles/Vol] 132 mmol/L Low 136-145 [facility] Comment on above: Performed By: #### A CBCRAJINDER CMPF #### Testing performed at [address] [address] COMPREHENSIVE METABOLIC PANE [place] 10-15-2019 Albumin [Mass/Vol] 4.1 G/dl 3.5 - 5 G/dl [facility] Albumin/Globulin [Mass ratio] 1.5 {ratio} [facility] ALP [Catalytic activity/Vol] 50 U/L [facility] ALT [Catalytic activity/Vol] 16 U/L [facility] AST [Catalytic activity/Vol] 16 U/L [facility] Bilirubin [Mass/Vol] 0.4 mg/dL [facility] Calcium [Mass/Vol] 8.6 mg/dL [facility] [employer] Chloride [Moles/Vol] 100 mmol/L [facility] CO2 [Moles/Vol] 22 mmol/L [facility] Creatinine [Mass/Vol] 1.58 mg/dL High [facility] GFR/1.73 sq M predicted among blacks MDRD (S/P/Bld) [Vol rate/Area] 42 mL/min/{1.73_m2} ml/min/1.7 3sq.m [facility] GFR/1.73 sq M predicted among non-blacks MDRD (S/P/Bld) [Vol rate/Area] Average GFR for 60-69 years old = 85. [facility] Comment on above: Chronic Kidney disea se, GFR = <60. Kidney failure, GFR = <15. The GFR estimate is not adjusted for extreme body surface area or acute process, nor has it been validated for women or ethnic groups other than and . GFR/1.73 sq M predicted among non-blacks MDRD (S/P/Bld) [Vol rate/Area] 35 mL/min/{1.73_m2} ml/min/1.7 3sq.m [facility] Glucose post fast [Mass/Vol] 78 mg/dL [facility] Comment on above: NORMAL <100 mg/dL PREDIABETES 101-126 mg/dL DIABETES 126 mg/dL or higher Potassium [Moles/Vol] 4.5 mmol/L [facility] Protein [Mass/Vol] 6.8 g/dL [facility] Sodium [Moles/Vol] 132 mmol/L Low [facility] Urea nitrogen [Mass/Vol] 31 mg/dL High [facility] FAX REQUESTon 10-15-2019 FAX TO [phone] Normal [facility] Comment on above: Performed By: #### F X #### [place] [address] #### LCELCP #### Testing performed at [facility] [address] [place] [address] [address] [place] [address] ISTAT TROPONIN Ion 0 Troponin I.cardiac [Mass/Vol] 0.05 ng/mL Normal 0-0.08 [facility] Comment on above: Performed By: #### I TROT #### [place] [address] Troponin I.cardiac [Mass/Vol] 0.03 ng/mL Normal 0-0.08 [facility] Comment on above: Performed By: #### A CBC, ITROT, CMPF #### [place] [address] Otheron 10-15-2019 Interpretation and review of laboratory results Abnormal [facility] POCT GLUCOSEon 10-15-2019 Glucose [Mass/Vol] 124 mg/dL Abnormal 70 - 99 mg/dL [facility] Interpretation and review of laboratory results Abnormal [facility] TROPONINon 10-15-2019 Troponin I.cardiac [Mass/Vol] 0.05 ng/mL 0 - 0.08 ng/mL [facility] Troponin I.cardiac [Mass/Vol] 0.03 ng/mL 0 - 0.08 ng/mL [facility] URINALYSIS, MACROon 10-15-19 20 Bilirubin Ql (U) Negative NEGATIVE [facility] Clarity (U) CLEAR CLEAR [facility] Color (U) YELLOW YELLOW [facility] Glucose Test strip (U) [Mass/Vol] Negative NEGATIVE mg/dl [facility] Hemoglobin Ql (U) Negative NEGATIVE [facility] Ketones (U) [Mass/Vol] Negative NEGAT MELVIN mg/dl [facility] Leukocyte esterase Test strip Ql (U) Negative NEGATIVE [facility] Nitrite Ql (U) Negative NEGATIVE [facility] pH (U) 5.5 [pH] [facility] Protein Ql (U) Negative NEGATIVE mg/dl [facility] Specific gravity (U) [Rel density] 1.010 [facility] Urobilinogen (U) [Mass/Vol] 0.2 [facility] URINE MACROSCOPICon 10-15-19 20 Bilirubin Ql (U) Negative Normal NEGATIVE [facility] Comment on above: Performed By: #### U MAC #### Testing performed at [address] [address] Clarity (U) CLEAR Normal CLEAR [facility] Comment on above: Performed By: #### U MAC #### Testing performed at [address] [place] [address] Color (U) YELLOW Normal YELLOW [facility] Comment on above: Performed By: #### U MAC #### Testing performed at [address] [address] Glucose Ql (U) Negative Normal NEGATIVE [facility] Comment on above: Performed By: #### U MAC #### Testing performed at [address] [address] pH (U) 5.5 [pH] Normal 5.0-7.0 [facility] Comment on above: Performed By: #### U MAC #### Testing performed at [address] [address] Protein (U) [Mass/Vol] Negative Normal NEGATIVE [facility] Comment on above: Performed By: #### U MAC #### Testing performed at [address] [address] URINE HEMOGLOBIN Negative Normal NEGATIVE [facility] Comment on above: Performed By: #### U MAC #### Testing performed at [address] [address] URINE KETONE Negative Normal NEGATIVE [facility] Comment on above: Performed By: #### U MAC #### Testing performed at [address] [address] URINE LEUKOTEST Negative Normal NEGATIVE [facility] Comment on above: Performed By: #### U MAC #### Testing performed at [address] [address] URINE NITRATES Negative Normal NEGATIVE [facility] Comment on above: Performed By: #### U MAC #### Testing performed at [address] [address] URINE SPEC GRAVITY 1.010 Normal 1.010-1.0 2 5 [facility] Comment on above: Performed By: #### U MAC #### Testing performed at [address] [address] Urobilinogen Qn (U) 0.2 {Loyd'U}/dL Normal 0.2-1.0 [facility] Comment on above: Performed By: #### U MAC #### Testing performed at [address] [address] XR CHEST PA AND LATERALon TSH Qn EXAM: XR CHEST PA AN D LATERAL HISTORY: weakness difficulty bearing weight shortness of breath with exertion walking history of lung nodules COMPARISON: Chest radiograph 02/28/2017. TECHNIQUE: AP upright and lateral radiographs of the chest. FINDINGS: The cardiomediastinal silhouette and pulmonary vasculature are normal. The lungs are without focal consolidation, pneumothorax, or pleural effusion. No acute osseous abnormality. Osteophytes of the thoracic spine. Surgical clips within the abdomen. IMPRESSION: 1. No acute pulmonary abnormality. Normal [facility] IMPRESSION: 1. No ac [place] pulmonary abnormality. [facility] User, Interfaces - 10/15/2019 2:50 PM EDT EXAM: XR CHEST PA AND LATERAL HISTORY: weakness difficulty bearing weight shortness of breath with exertion walking history of lung nodules COMPARISON: Chest radiograph 02/28/2017. TECHNIQUE: AP upright and lateral radiographs of the chest. FINDINGS: The cardiomediastinal silhouette and pulmonary vasculature are normal. The lungs are without focal consolidation, pneumothorax, or pleural effusion. No acute osseous abnormality. Osteophytes of the thoracic spine. Surgical clips within the abdomen. IMPRESSION IMPRESSION: 1. No acute pulmonary abnormality. [facility] EXAM: XR CHEST PA AN D LATERAL HISTORY: weakness difficulty bearing weight shortness of breath with exertion walking history of lung nodules COMPARISON: Chest radiograph 02/28/2017. TECHNIQUE: AP upright and lateral radiographs of the chest. FINDINGS: The cardiomediastinal silhouette and pulmonary vasculature are normal. The lungs are without focal consolidation, pneumothorax, or pleural effusion. No acute osseous abnormality. Osteophytes of the thoracic spine. Surgical clips within the abdomen. [facility] ED NOTEon 08-09-2019 ED NOTE HNO ID: [id number] Author: Ellen (Rn) WU Ramos Service: Emergency Medicine Author Type: Registered Nurse Type: ED Notes Filed: 08/09/2019 5:00 PM Note Text: Pt from home with reports of Sores on her head. States she put peroxide on them last night to try to heal them. States when she woke up this morning her eye lids were swollen. Normal [facility] ED PROV NOTEon 08-09-2019 ED PROV NOTE HNO ID: [id number] Author: Kassandra Chan DO Service: Emergency Medicine Author Type: Physician Type: ED Provider Notes Filed: 08/09/2019 9:02 PM Note Text: ED Provider Note Patient Name: Leti Dela Cruz SERVICE DATE: 08/09/19 History Patient presents with: Derm Problem Edema Leti Dela Cruz is a 64 year old female with history of multiple chronic medical problems who presents with Derm Problem and Edema. Patient used peroxide on the wounds prior to arrival. - Symptoms began 5 days prior to arrival. - Severity: moderate - Timing: constant - Quality: sore and itchy - Derm Problem and Edema is exacerbated by nothing. - Derm Problem and Edema is not exacerbated by anything. - Symptoms are associated with nothing. - Symptoms are not associated with chills, fever, nausea, rash, shortness of breath, URI symptoms and vomiting. - Improved by nothing. - Not improved by anything. Patient presents stating she has sores on her head x 5 days. They start off as bumps she feels on her scalp that the open and pus comes out. She has tried peroxide on them. She states the both are sore and itchy. She states this morning she noticed swelling around her eyes. No other swelling. No difficulty swallowing or breathing. She is urinating normally. She has not used any new shampoo on her hair. She does not dye her hair. PAST MEDICAL HISTORY Diagnosis Date - Bilateral biceps tendonitis - Cervicalgia - Chronic pain of both shoulders - Diabetes (HCC) Type 2 - Disorder of bone and cartilage - Dorsalgia - Fatigue - GERD (gastroesophageal reflux disease) - 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 - Hypertension - Left hip pain - long-term (current) use of non-steroidal anti-inflammatories (nsaid) - Monoclonal gammopathy - Osteoarthritis of both hands - Thyroid disease PAST SURGICAL HISTORY Procedure Laterality Date - %MOLE STRAIN EXTRACTION - CHOLECYSTECTOMY HX - HYSTERECTOMY HX Total - SHOULDER SURGERY HX FAMILY HISTORY Problem Relation Age of Onset - Diabetes Father - Hypertension Father - Dementia Father - COPD Mother - Hypertension Mother - Cancer Mother esophagus or chest - Cancer Maternal Grandfather Leukemia - Cancer Other Social History Tobacco Use - Smoking status: Current Every Day Smoker Packs/day: 0.25 Types: Cigarettes - Smokeless tobacco: Never Used Substance and Sexual Activity - Alcohol use: No - Drug use: Never - Sexual activity: Not on file ALLERGIES Allergen Reactions - Duloxetine Hcl Unknown - Seasonal Allergies Other: See Comments Sneezing, runny nose - Tomatoes Itching Review of Systems Constitutional: Negative for chills and fever. HENT: Positive for facial swelling (around her eyes only). Negative for drooling, ear pain, sore throat and trouble swallowing. Respiratory: Negative for shortness of breath, wheezing and stridor. Cardiovascular: Negative for chest pain. Gastrointestinal: Negative for nausea and vomiting. Musculoskeletal: Negative for joint swelling and myalgias. Skin: Positive for wound (sores on scalp). Negative for rash. Neurological: Negative for headaches. Psychiatric/Behavioral: Negative for agitation and confusion. Physical Exam BP 164/86 Pulse 62 Temp (Src) 97.7 (Oral) Resp 16 Ht 4' 11 (1.50m) Wt 142 lb (64.4kg) SpO2 98% BMI 28.67 kg/(m2). O2 Therapy: Room Air Physical Exam Vitals signs and nursing note reviewed. Constitutional: General: She is not in acute distress. Appearance: She is not ill-appearing, toxic-appearing or diaphoretic. HENT: Head: Normocephalic and atraumatic. No right periorbital erythema or left periorbital erythema. Comments: Slight periorbital edema, no erythema. There are multiple scabs scattered all over scalp. No drainage seen. No vesicles or blistering seen. No crepitus. No fluctuance, no erythema. Mouth/Throat: Lips: No lesions. Mouth: Mucous membranes are moist. No angioedema. Pharynx: Oropharynx is clear. Uvula midline. No pharyngeal swelling, oropharyngeal exudate, posterior oropharyngeal erythema or uvula swelling. Tonsils: No tonsillar exudate or tonsillar abscesses. Eyes: General: No scleral icterus. Extraocular Movements: Extraocular movements intact. Conjunctiva/sclera: Conjunctivae normal. Pupils: Pupils are equal, round, and reactive to light. Neck: Musculoskeletal: Normal range of motion and neck supple. Cardiovascular: Rate and Rhythm: Normal rate and regular rhythm. Pulmonary: Effort: Pulmonary effort is normal. No respiratory distress. Breath sounds: Normal breath sounds. No stridor. No wheezing, rhonchi or rales. Musculoskeletal: Right lower leg: No edema. Left lower leg: No edema. Skin: General: Skin is warm and dry. Capillary Refill: Capillary refill takes less than 2 seconds. Findings: No rash. Neurological: Mental Status: She is alert and oriented to person, place, and time. GCS: GCS eye subscore is 4. GCS verbal subscore is 5. GCS motor subscore is 6. Cranial Nerves: Cranial nerves are intact. Psychiatric: Mood and Affect: Mood normal. Behavior: Behavior normal. Diagnostic Testing ED Labs Ordered and Reviewed - No data to display Procedures ED Course / Clinical Impression Clinical Impressions as of Aug 09 2043 Scalp lesions MDM / Disposition / Plan Patient with sores of ? Etiology on scalp. ? Infection as she states pus comes from them. She is afebrile, non-toxic appearing. The mild periorbital edema ? Reactive Due to some inflammation of the scalp? There is no erythema, she has no other swelling. She is urinating normally. I discussed labs to evaluate WBC and renal function/electrolytes, but she prefers to hold on doing any labs at this time. She notes she has outpatient labs she has an order to get done which she states she will get those done through outpatient lab. We discussed different possible etiologies for the skin lesions on her scalp. With the ? Purulent drainage she describes from these areas, will prescribe keflex to cover for infection. She was instructed to follow up with primary. I will give referral to dermatology as well. She was instructed on reasons to return to the ED, otherwise follow up with primary. She is agreeable with plan. Disposition The patient was discharged. Counseled patient regarding suspected diagnosis. As well as the need for follow-up. Discharged home with verbal and written instructions. They were instructed to return as needed for persistent or worsening symptoms or any new concerns. Condition at disposition is stable. SIGNATURE: Kassandra Chan, DO Kassandra Chan DO 08/09/19 2102 Normal [facility] US DOPPLER ARTERIAL LEGS MARK [facility] 06-05-2019 US DOPPLER ARTERIAL LEGS BILATERAL EXAM: US DOPPLER ARTERIAL LEGS BILATERAL HISTORY: Claudication and PAD COMPARISON: None. TECHNIQUE: Resting ABIs and segmental pressures were obtained. FINDINGS: Right resting MATILDE 1.17. Left resting MATILDE 1.06. Segmental pressures were obtained. No gradients were noted. Waveforms multiphasic. IMPRESSION: Normal resting ABIs. No pressure gradients with segmental pressures. Normal [facility] IMPRESSION: Normal r esting ABIs. No pressure gradients with segmental pressures. [facility] EXAM: US DOPPLER ART ERIAL LEGS BILATERAL HISTORY: Claudication and PAD COMPARISON: None. TECHNIQUE: Resting ABIs and segmental pressures were obtained. FINDINGS: Right resting MATILDE 1.17. Left resting MATILDE 1.06. Segmental pressures were obtained. No gradients were noted. Waveforms multiphasic. [facility] User, Interfaces - 06/05/2019 2:48 PM EST EXAM: US DOPPLER ARTERIAL LEGS BILATERAL HISTORY: Claudication and PAD COMPARISON: None. TECHNIQUE: Resting ABIs and segmental pressures were obtained. FINDINGS: Right resting MATILDE 1.17. Left resting MATILDE 1.06. Segmental pressures were obtained. No gradients were noted. Waveforms multiphasic. IMPRESSION IMPRESSION: Normal resting ABIs. No pressure gradients with segmental pressures. [facility] FASTINGon 05-17-2019 Creatinine [Mass/Vol] 1.00 mg/dL Normal 0.52-1.04 [facility] Comment on above: Performed By: #### B MPF #### Testing performed at [address] [address] EST. GFR, >60 Normal [facility] Comment on above: Performed By: #### B MPF #### Testing performed at [address] [address] EST. GFR,Non 60 ml/min/1.73sq.m Normal [facility] Comment on above: Performed By: #### B MPF #### Testing performed at [address] [address] GFR/1.73 sq M predicted among non-blacks MDRD (S/P/Bld) [Vol rate/Area] Average GFR for 60-69 years old = 85. Normal [facility] Comment on above: Result Comment: Marketing Budget [employer]st [place] Kidney disease, GFR = <60. Kidney failure, GFR = <15. The GFR estimate is not adjusted for extreme body surface area or acute process, nor has it been validated for women or ethnic groups other than and . Performed By: #### B MPF #### Testing performed at [address] [address] Urea nitrogen [Mass/Vol] 21 mg/dL High 7-20 [facility] Comment on above: Performed By: #### B MPF #### Testing performed at [address] [address] Anion gap [Moles/Vol] 14 mmol/L Normal 8-16 [facility] Comment on above: Performed By: #### B MPF #### Testing performed at [address] [address] Calcium [Mass/Vol] 9.5 mg/dL Normal 8.4-10.2 [facility] Comment on above: Performed By: #### B MPF #### Testing performed at [address] [address] Chloride [Moles/Vol] 103 mmol/L Normal 98-107 [facility] Comment on above: Performed By: #### B MPF #### Testing performed at [address] [address] CO2 [Moles/Vol] 21 mmol/L Low 22-30 [facility] Comment on above: Performed By: #### B MPF #### Testing performed at [address] [address] Glucose [Mass/Vol] 117 mg/dL High 70-100 [facility] Comment on above: Result Comment: NORMAL <100 mg/dL PREDIABETES 101-126 mg/dL DIABETES 126 mg/dL or higher Performed By: #### B MPF #### Testing performed at [address] [address] Potassium [Moles/Vol] 5.0 mmol/L Normal 3.5-5.1 [facility] Comment on above: Performed By: #### B MPF #### Testing performed at [address] [address] Sodium [Moles/Vol] 138 mmol/L Normal 136-145 [facility] Comment on above: Performed By: #### B MPF #### Testing performed at [address] [address] LARGE JOINT INJECTION: R sub acromial bursaon 04-15-2019 Seth Solorzano 019 3:52 PM LARGE JOINT INJECTION: R subacromial bursa Date/Time: 04/15/2019 2:11 PM Supporting Documentation Indications: pain Procedure Details Location: shoulder - R subacromial bursa Local Anesthetic Used: mL of ethyl chloride (cold spray) Needle size: 22 G Medication Verification: I have personally verified and performed the final check of the medication(s) used in this procedure prior to administration. The following items were included during the verification process for medication(s) administered: drug name, strength, volume, expiration, physical integrity and appearance of the medication(s). Medications administered: 3 mL lidocaine 10 mg/mL; 1 mL triamcinolone 40 MG/ML Patient tolerance: patient tolerated the procedure well with no immediate complications Consent: Consent was obtained prior to the procedure after discussion of the risks, benefits and alternatives, and expected outcomes were discussed with the patient. The possibilities of reaction to medication, bleeding, infection, the need for additional procedures, failure to diagnosis a condition, and creating a complication requiring operation were discussed with the patient. The patient concurred with the proposed plan, giving consent. Preparation: Patient was prepped in the usual sterile fashion with Betadine and alcohol. [facility] LARGE JOINT INJECTION: L ricardo rodriguesr trochanteric bursaon 03-15-2019 Mark Ren ATC 03/15/2019 1:32 PM LARGE JOINT INJECTION: L greater trochanteric bursa Date/Time: 03/15/2019 1:18 PM Supporting Documentation Indications: pain Procedure Details Location: hip - L greater trochanteric bursa Local Anesthetic Used: mL of ethyl chloride (cold spray) Needle size: 22 G Medication Verification: I have personally verified and performed the final check of the medication(s) used in this procedure prior to administration. The following items were included during the verification process for medication(s) administered: drug name, strength, volume, expiration, physical integrity and appearance of the medication(s). Medications administered: 3 mL lidocaine 10 mg/mL; 1 mL triamcinolone 40 MG/ML Patient tolerance: patient tolerated the procedure well with no immediate complications Consent: Consent was obtained prior to the procedure after discussion of the risks, benefits and alternatives, and expected outcomes were discussed with the patient. The possibilities of reaction to medication, bleeding, infection, the need for additional procedures, failure to diagnosis a condition, and creating a complication requiring operation were discussed with the patient. The patient concurred with the proposed plan, giving consent. Preparation: Patient was prepped in the usual sterile fashion with Betadine and alcohol. [employer] Other 01-25-2019 IMPRESSION: 1. Starr l ultrasound of the kidneys and bladder. No mass is seen. No calcifications or hydronephrosis. 2. Trace postvoid residual is noted. [facility] EXAM: US RENAL RETROPERITONEAL, US PELVIS LIMITED HISTORY: N17.9 acute kidney injury and abnormal labs COMPARISON: None. TECHNIQUE: Real-time imaging and limited Doppler evaluation of the renal and retroperitoneal region as well as bladder was performed. FINDINGS: The kidneys are unremarkable. The right kidney measures 10.2 x 4.3 x 4.3 cm. There is normal cortical tissue. There is no hydronephrosis, solid or cystic lesion or calcifications. The left kidney is 9.9 x 5.3 x 4.8 cm. There is normal cortical tissue. There is no hydronephrosis. I see no evidence of solid or cystic lesions, calcifications or shadowing. Bladder shows no evidence of any bladder mass. No wall thickening is seen. Both the right and left ureteral jets are seen. The prevoid bladder volume was 137 mL. There is a minimal post void residual of 10 mL. [employer] User, Interfaces - 01/25/2019 4:15 PM EDT EXAM: US RENAL RETROPERITONEAL, US PELVIS LIMITED HISTORY: N17.9 acute kidney injury and abnormal labs COMPARISON: None. TECHNIQUE: Real-time imaging and limited Doppler evaluation of the renal and retroperitoneal region as well as bladder was performed. FINDINGS: The kidneys are unremarkable. The right kidney measures 10.2 x 4.3 x 4.3 cm. There is normal cortical tissue. There is no hydronephrosis, solid or cystic lesion or calcifications. The left kidney is 9.9 x 5.3 x 4.8 cm. There is normal cortical tissue. There is no hydronephrosis. I see no evidence of solid or cystic lesions, calcifications or shadowing. Bladder shows no evidence of any bladder mass. No wall thickening is seen. Both the right and left ureteral jets are seen. The prevoid bladder volume was 137 mL. There is a minimal post void residual of 10 mL. IMPRESSION IMPRESSION: 1. Normal ultrasound of the kidneys and bladder. No mass is seen. No calcifications or hydronephrosis. 2. Trace postvoid residual is noted. [employer] CNCOon 12-28-2018 CNCO Letter Text Normal [facility] Hep C Abon 12-22-2018 Hep C Ab <0.1 Normal 0.0-0.9 [facility] Comment on above: Result Comment: Nega tive: < 0.8 Indeterminate: 0.8 - 0.9 Positive: > 0.9 The CDC recommends that a positive HCV antibody result be followed up with a HCV Nucleic Acid Amplification test (133716). Performed At: [facility] [id number] Jake Montero PhD Ph:[phone] Performed By: #### 2 [id number] #### KATHERINE RemHemo [facility] [place] [address] US Abdomen Completeon 2018 US Abdomen Complete Exam Date/Time: 12/21/2018 09:15 EDT Reason for Exam: DIFFUSE ABD PAIN;Abdominal pain Report STUDY: US Abdomen Complete; 12/21/2018 9:15 am INDICATION: 63 y/o F with Abdominal pain. COMPARISON: None. ACCESSION NUMBER(S): [id number] ORDERING CLINICIAN: Yamila Hayden TECHNIQUE: Routine ultrasound of the abdomen was performed. Static images were obtained for remote interpretation. FINDINGS: LIVER: Craniocaudal length: 16.4 cm, Within normal limits of size for age Echogenicity: Diffusely increased Mass: None. BILE DUCTS: Intrahepatic ducts: Non-dilated Common bile duct diameter: 3-4 mm GALLBLADDER: Status post cholecystectomy PANCREAS: Visualized portions are unremarkable with partial obscuration secondary to bowel gas. SPLEEN: Craniocaudal length: 8.8 cm, Within normal limits of size for age. No focal splenic lesion. RIGHT KIDNEY: Craniocaudal length: 9.0 cm, Within normal limits of size for age. No hydronephrosis, hydroureter or focal renal lesion. LEFT KIDNEY: Craniocaudal length: 9.1 cm, Within normal limits of size for age. No hydronephrosis, hydroureter or focal renal lesion. ABDOMINAL AORTA AND IVC: Visualized portions are unremarkable. Exam Date/Time: 12/21/2018 09:15 EDT Report PERITONEAL FLUID: None. IMPRESSION: 1. Hepatic steatosis. 2. No biliary dilation status post cholecystectomy. FINAL REPORT Dictated: 12/22/2018 7:41 am Mark Dove MD Signed (Electronic Signature): 12/22/2018 7:41 am Signed by: Mark Dove MD Technologist: CHEY Normal [facility] Auto Diffon 12-21-2018 Basophils (Bld) [#/Vol] 0.1 E3/mcL Normal 0.0-0.2 [facility] Comment on above: Order Comment: Order Added by Discern Expert. Performed By: #### 2 [id number] #### KATHERINE RemHemo [facility] [place] [address] Basophils/100 WBC (Bld) 0.6 % Normal 0.0-2.0 [facility] Comment on above: Order Comment: Order Added by Discern Expert. Performed By: #### 2 [id number] #### KATHERINE RemHemo [address] [place] [address] Eos Absolute 0.3 E3/mcL Normal 0.0-0.7 [facility] Comment on above: Order Comment: Order Added by Discern Expert. Performed By: #### 2 [id number] #### KATHERINE RemHemo [address] [place] [address] Eosinophils/100 WBC (Bld) 2.9 % Normal 0.0-11.0 [facility] Comment on above: Order Comment: Order Added by Discern Expert. Performed By: #### 2 [id number] #### KATHERINE RemHemo [address] [place] [address] Lymphocytes (Bld) [#/Vol] 1.7 E3/mcL Normal 1.2-3.4 [facility] Comment on above: Order Comment: Order Added by Discern Expert. Performed By: #### 2 [id number] #### KATHERINE RemHemo [address] [place] [address] Lymphocytes/100 WBC (Bld) 17.5 % Low 20.0-55.0 [facility] Comment on above: Order Comment: Order Added by Discern Expert. Performed By: #### 2 [id number] #### KATHERINE RemHemo [address] [place] [address] [place] Absolute 0.6 E3/mcL Normal 0.0-0.7 [facility] Comment on above: Order Comment: Order Added by Discern Expert. Performed By: #### 2 [id number] #### KATHERINE RemHemo [address] [place] [address] Monocytes/100 WBC (Bld) 6.4 % Normal 0.0-10.0 [facility] Comment on above: Order Comment: Order Added by Discern Expert. Performed By: #### 2 [id number] #### KATHERINE RemHemo [address] [place] [address] Neutro Absolute 7.0 E3/mcL High 1.4-6.5 [facility] Comment on above: Order Comment: Order Added by Discern Expert. Performed By: #### 2 850533 #### KATHERINE StilesHemo [address] [place] [address] Neutro Auto 72.6 % Normal 37.0-75.0 [facility] Comment on above: Order Comment: Order Added by Discern Expert. Performed By: #### 2 [id number] #### KATHERINE Mcclellando [facility] [place] [address] CBC w/ Auto Diffon 9 Erythrocyte distribution width (RBC) [Ratio] 14.7 % High 11.5-14.5 [facility] Comment on above: Performed By: #### 2 [id number] #### KATHERINE Mcclellando [address] [place], [place] [id number] Hematocrit (Bld) [Volume fraction] 36.1 % Normal 36.0-48.0 [facility] Comment on above: Performed By: #### 2 615518 #### KATHERINE Mcclellando [address] [place], [place] [phone] Hemoglobin (Bld) [Mass/Vol] 12.1 g/dL Normal 12.0-16.0 [facility] Comment on above: Performed By: #### 2 955934 #### KATHERINE Mcclellando [address] [place], [place] [phone] MCH (RBC) [Entitic mass] 31.3 pg High 27.0-31.0 [facility] Comment on above: Performed By: #### 2 [id number] #### KATHERINE Mcclellando [address] [place] [address] MCHC (RBC) [Mass/Vol] 33.4 g/dL Normal 33.0-37.0 [facility] Comment on above: Performed By: #### 2 900541 #### KATHERINE StilesHemo [address] [place] [address] MCV (RBC) [Entitic vol] 93.9 fL Normal 78.0-100.0 [facility] Comment on above: Performed By: #### 2 [id number] #### KATHERINE StilesHemo [address] [place] [address] Platelet mean volume (Bld) [Entitic vol] 7.6 fL Normal 7.4-11.0 [facility] Comment on above: Performed By: #### 2 192301 #### KATHERINE StilesHemo [facility] [place] [address] Platelets (Bld) [#/Vol] 430 E3/mcL High 130-400 [facility] Comment on above: Performed By: #### 2 845269 #### KATHERINE Mcclellando [facility] [place] [address] RBC (Bld) [#/Vol] 3.85 E6/mcL Low 3.90-5.40 [facility] Comment on above: Performed By: #### 2 558782 #### KATHERINE Mcclellando [facility] [place] [address] WBC (Bld) [#/Vol] 9.6 E3/mcL Normal 3.6-11.0 [facility] Comment on above: Performed By: #### 2 800731 #### KATHERINE StilesHemo [address] [place] [address] CMPon 12-21-2018 Albumin [Mass/Vol] 4.5 g/dL Normal 3.4-5.0 [facility] Comment on above: Performed By: #### 2 866495 #### KATHERINE Mcclellando [address] [place] [address] Albumin/Globulin [Mass ratio] 1.6 {ratio} Normal 1.1-1.9 [facility] Comment on above: Performed By: #### 2 170743 #### KATHERINE StilesHemo [facility] [place] [address] Alk Phos 54 Int._Unit/L Normal 33-136 [facility] Comment on above: Performed By: #### 2 [id number] #### KATHERINE StilesHemo [address] [place] [address] ALT [Catalytic activity/Vol] 9 Int._Unit/L Normal 7-45 [facility] Comment on above: Performed By: #### 2 159627 #### KATHERINE StilesHemo [address] [place] [address] Anion gap [Moles/Vol] 15 mmol/L Normal 10-20 [facility] Comment on above: Performed By: #### 2 [id number] #### KATHERINE StilesHemo [address] [place] [address] AST [Catalytic activity/Vol] 9 Int._Unit/L Normal 9-39 [facility] Comment on above: Performed By: #### 2 862573 #### KATHERINE RemHemo [address] [place] [address] Bili Total 0.41 mg/dL Normal 0.00-1.20 [facility] Comment on above: Performed By: #### 2 875599 #### KATHERINE RemHemo [address] [place] [address] Calcium [Mass/Vol] 9.7 mg/dL Normal 8.6-10.3 [facility] Comment on above: Performed By: #### 2 664956 #### KATHERINE StilesHemo [address] [place] [address] Chloride [Moles/Vol] 101 mmol/L Normal 98-107 [facility] Comment on above: Performed By: #### 2 293579 #### KATHERINE RemHemo [address] [place] [address] CO2 [Moles/Vol] 27.0 mmol/L Normal 21.0-32.0 [facility] Comment on above: Performed By: #### 2 901094 #### KATHERINE StilesHemo [address] [place] [address] Creatinine [Mass/Vol] 2.0 mg/dL High 0.5-1.1 [facility] Comment on above: Performed By: #### 2 901316 #### KATHERINE RemHemo [address] [place] [address] Globulin (S) [Mass/Vol] 3.0 g/dL Normal 2.0-4.0 [facility] Comment on above: Performed By: #### 2 [id number] #### KATHERINE RemHemo [address] [place] [address] Glucose [Mass/Vol] 124 mg/dL High 70-99 [facility] Comment on above: Performed By: #### 2 035224 #### KATHERINE RemHemo [address] [place] [address] Potassium [Moles/Vol] 5.1 mmol/L Normal 3.5-5.3 [facility] Comment on above: Performed By: #### 2 917243 #### KATHERINE Mcclellando [address] [place] [address] Protein [Mass/Vol] 7.3 g/dL Normal 6.4-8.2 [facility] Comment on above: Performed By: #### 2 232456 #### KATHERINE Mcclellandswathi [facility] [place] [address] Sodium [Moles/Vol] 138 mmol/L Normal 136-145 [facility] Comment on above: Performed By: #### 2 080660 #### KATHERINE Mcclellandswathi [facility] [place] [address] Urea nitrogen [Mass/Vol] 29 mg/dL High 6-23 [facility] Comment on above: Performed By: #### 2 989821 #### KATHERINE Mcclellandswathi [facility] [place] [address] Urea nitrogen/Creatinine [Mass ratio] 14.5 ratio Normal 5.4-30.0 [facility] Comment on above: Performed By: #### 2 916281 #### KATHERINE Mcclellandswathi [facility] [place] [address] [id number] 12-21-2018 HbA1c (Bld) [Mass fraction] 6.8 % High 4.0-6.3 [facility] Comment on above: Performed By: #### 2 807375 #### KATHERINE Mcclellandswathi [facility] [place] [address] Lipase Levelon 12-21-2018 Lipase Lvl 13 Int._Unit/L Normal 9-82 [facility] Comment on above: Performed By: #### 2 666231 #### KATHERINE Mcclellando [address] [place] [address] Lipid Profileon 12-21-2018 Cholesterol [Mass/Vol] 187 mg/dL Normal 0-199 [facility] Comment on above: Result Comment: TOTA L CHOLEESTEROL: <200 NORMAL 200 - 239 BORDERLINE HIGH >240 HIGH Performed By: #### 2 045079 #### KATHERINE Mcclellandswathi [address] [place] [address] Cholesterol in HDL [Mass/Vol] 44 mg/dL Normal 40-60 [facility] Comment on above: Performed By: #### 2 534757 #### KATHERINE StilesHemo [facility] [place] [address] Cholesterol in LDL [Mass/Vol] 83 mg/dL Normal 0-130 [facility] Comment on above: Result Comment: <100 OPTIMAL 100-129 NEAR / ABOVE OPTIMAL 130-159 BORDERLINE HIGH 160-189 HIGH >190 VERY HIGH CALC LDL NOT VALID WHEN TRIGLYCERIDE IS >400 MG/DL Performed By: #### 2 662314 #### KATHERINE StilesHemo [facility] [place] [address] Cholesterol in VLDL [Mass/Vol] 60 mg/dL High 0-40 [facility] Comment on above: Performed By: #### 2 023976 #### KATHERINE StilesHemo [facility] [place] [address] Triglyceride [Mass/Vol] 302 mg/dL High 0-149 [facility] Comment on above: Result Comment: AGE DESIRABLE BORDERLINE HIGH 91 D - 9 Y 0 - 74 75 - 99 > 100 10 - 19 Y 0 - 89 90 - 129 > 130 20 -24 Y 0 - 114 115 - 149 > 150 > 25 0 - 149 150 - 199 200 - 499 Performed By: #### 2 [id number] #### KATHERINE StilesHemo [facility] [place] [address] TSHon 12-21-2018 TSH Qn 6.66 mcIU/mL High 0.30-5.60 [facility] Comment on above: Performed By: #### 2 033359 #### KATHERINE StilesHemo [facility] [place] [address] Valproic Acidon 12-21-2018 Valpro Acid Lvl 25 microgram/mL Low 50-100 [facility] Comment on above: Performed By: #### 2 [id number] #### KATHERINE StilesHemo [facility] [place] [address] Vit B12on 12-21-2018 Cobalamin (Vitamin B12) [Mass/Vol] 268 pg/mL Normal 180-914 [facility] Comment on above: Performed By: #### 2 [id number] #### KATHERINE RemHemo [address] [place] [address] eGFRon 12-21-2018 GFR/1.73 sq M predicted among non-blacks MDRD (S/P/Bld) [Vol rate/Area] 30 mL/min/1.73 m2 Normal [facility] Comment on above: Order Comment: Order added by Discern Expert. Performed By: #### 2 487559 #### KATHERINE RemHemo [address] [place] [address] GFR/1.73 sq M predicted among non-blacks MDRD (S/P/Bld) [Vol rate/Area] 25 mL/min/1.73 m2 Normal [facility] Comment on above: Order Comment: Order added by Discern Expert. Performed By: #### 2 [id number] #### KATHERINE RemHemo [address] [place] [address] Fecal Occult Bld Tston 11-21 Immuno FOB Negative Normal Negative [facility] Comment on above: Result Comment: This test was developed and its performance characteristics determined by [facility] [place] ([facility]). It has not been cleared or approved by the FDA. [facility] is regulated under CLIA as qualified to perform high complexity testing. This test is used for clinical purposes. It should not be regarded as investigational or for research. Performed By: #### I FOBT #### [facility] [address] [place], [place] [address] [facility] ([facility]) LETI DELA CRUZ ([id number]) 1955 [address] [facility] Date Time Provider Department 11/15/18 1:00 PM EMAM HILARIO ([facility]) HEMAMS During your visit today, we recorded the following information about you: Temperature Pulse Respiration Blood pressure 97.1 degrees 51/minute 16/minute 140/56 Weight Height 62.3 kg 1.523 m Emma Hilario APRN.KATHRYN 11/23/2018 1:11 PM Signed REASON FOR VISIT: Leti Dela Cruz is a very pleasant 62 year old old female who is here for : Monoclonal gammopathy and anemia Per Dr. Evans's office visit notes: HPI She is feeling well except for depression. Her father is not doing well. She feels tired. She is anxious. ALLERGIES Allergen Reactions - Duloxetine Hcl Unknown - Seasonal Allergies Other: See Comments Sneezing, runny nose - Tomatoes Itching Current Outpatient Medications Medication Sig Dispense Refill - ondansetron orally disintegrating (ZOFRAN ODT) 4 mg disintegrating tablet Take 4 mg by mouth. - hydrOXYzine pamoate (VISTARIL) 25 mg capsule Take 25 mg by mouth. - levothyroxine (SYNTHROID) 50 mcg tablet Take 50 mcg by mouth. - Magnesium Oxide 250 mg tab 1 po q day - metoprolol tartrate, short acting, (LOPRESSOR) 25 mg tablet Take 25 mg by mouth. - pantoprazole (PROTONIX) 40 mg grps Take 40 mg by mouth. - sulindac (CLINORIL) 200 mg tablet 1 po bid PRN - Tizan-M Ib-Gztj-JTQ-Sophia-Men-Al (COMFORT PAC-TIZANIDINE) 4 mg kit - GABAPENTIN ORAL Take by mouth. - traZODone (DESYREL) 150 mg tablet Take 150 mg by mouth daily at bedtime. - insulin glargine,hum.rec.anlog (LANTUS SUBCUTANEOUS) Inject 40 Units subcutaneously. - atorvastatin calcium (LIPITOR ORAL) Take by mouth. - omega-3s/dha/epa/fish oil/D3 (VITAMIN-D + OMEGA-3 ORAL) Take by mouth. No current facility-administered medications for this visit. CURRENT STATUS: She presents today for 6 month follow-up visit. She reports that in the past 6 months she had a trip to the emergency room in June due to itching and nausea. Her last colonoscopy was in June [address] Macdonald. ROS: Constitutional: Negative for activity change, appetite change, chills, fatigue, fever and unexpected weight change. HENT: Negative for hearing loss, sore throat, trouble swallowing and voice change. Eyes: Negative. Respiratory: Negative for cough, choking and wheezing. Cardiovascular: Negative for chest pain, palpitations and leg swelling. Gastrointestinal: Negative for abdominal distention, abdominal pain, blood in stool, constipation, diarrhea, nausea and vomiting. Endocrine: Negative for cold intolerance and heat intolerance. Genitourinary: Negative for hematuria, menstrual problem and vaginal bleeding. Musculoskeletal: Negative for arthralgias, back pain, gait problem, joint swelling and myalgias. Skin: Negative for color change, pallor and wound. Neurological: Negative for light-headedness and numbness. Hematological: Negative for adenopathy. Does not bruise/bleed easily. Psychiatric/Behavioral: Negative for confusion. The patient is not nervous/anxious. PHYSICAL EXAM BP 140/56 Pulse (!) 51 Temp 36.2 ?C (97.1 ?F) (Oral) Resp 16 Ht 152.3 cm (4' 11.96) Wt 62.3 kg (137 lb 4.8 oz) SpO2 94% BMI 26.85 kg/m? ECOG PERFORMANCE STATUS:0- Fully active, able to carry on all pre-disease performance w/o restriction. Physical Exam Constitutional: She is oriented to person, place, and time. She appears well-nourished. HENT: Head: Normocephalic and atraumatic. Mouth/Throat: Oropharynx is clear and moist. Eyes: Pupils are equal, round, and reactive to light. Conjunctivae are normal. Neck: Normal range of motion. Neck supple. No tracheal deviation present. Cardiovascular: Normal rate and regular rhythm. Pulmonary/Chest: Effort normal and breath sounds normal. No respiratory distress. Abdominal: Soft. Bowel sounds are normal. She exhibits no distension and no mass. Musculoskeletal: Normal range of motion. She exhibits no edema or deformity. Neurological: She is alert and oriented to person, place, and time. Skin: Skin is warm and dry. No rash noted. No erythema. No pallor. Psychiatric: She has a normal mood and affect. Her behavior is normal. LABS: Component Latest Ref Rng AND Units 11/08/2018 WBC 3.70 - 11.00 k/uL 9.11 RBC 3.90 - 5.20 m/uL 3.64 (L) Hemoglobin 11.5 - 15.5 g/dL 11.1 (L) Hematocrit 36.0 - 46.0 % 33.5 (L) MCV 80.0 - 100.0 fL 92.0 MCH 26.0 - 34.0 pG 30.5 MCHC 30.5 - 36.0 g/dL 33.1 RDW-CV 11.5 - 15.0 % 13.1 Platelet Count 150 - 400 k/uL 373 MPV 9.0 - 12.7 fL 9.3 Neut% % 57.0 Abs Neut (ANC) 1.45 - 7.50 k/uL 5.19 Lymph% % 30.2 Abs Lymph 1.00 - 4.00 k/uL 2.75 [place]% % 6.9 Abs [place] <0.87 k/uL 0.63 Eosin% % 4.7 Abs Eosin <0.46 k/uL 0.43 Baso% % 1.2 Abs Baso <0.11 k/uL 0.11 (H) Protein, Total 6.3 - 8.0 g/dL 6.8 Albumin 3.9 - 4.9 g/dL 4.3 Calcium 8.5 - 10.2 mg/dL 9.5 Bilirubin, Total 0.2 - 1.3 mg/dL 0.2 Alkaline Phosphatase 34 - 123 U/L 61 AST 13 - 35 U/L 10 (L) Glucose 74 - 99 mg/dL 127 (H) BUN 7 - 21 mg/dL 18 Creatinine 0.58 - 0.96 mg/dL 1.08 (H) Sodium 136 - 144 mmol/L 133 (L) Potassium 3.7 - 5.1 mmol/L 5.2 (H) Chloride 97 - 105 mmol/L 98 CO2 22 - 30 mmol/L 27 Anion Gap 9 - 18 mmol/L 8 (L) ALT 7 - 38 U/L 12 eGFR- >60 eGFR-All Other Races . 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 - repeat labs on 04/18/18: Monoclonal protein: No M spike K/L ratio: 1.59 04/23/18: 24 hour urine: Negative for monoclonal protein 04/18/2018 13:57 WBC: 8.97 RBC: 3.69 (L) Hemoglobin: 11.0 (L) Hematocrit: 33.5 (L) Platelet Count: 381 04/23/18: Skeletal survey: tiny lesions on skeeltal survey , either lesions or small vascular lakes. - No further workup needed for this, unless she has worsening anemia or other symptoms/labs to warrant workup again. Her hemoglobin on 02/26 was 10.7, on 05/03 was 13.1 and on 11/08 was 11.1. She has worsening anemia since April 2018. She reports that for the past 4 months she has not taken her B12 I have asked her to resume this and we'll recheck her CBC and a visit with me in 4 weeks. Today we'll also draw a ferritin level iron TIBC and retic count. I have also ordered a stool for occult blood and she will collect this from home. Her last colonoscopy was June,. 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 ?I have asked her to resume the supplements daily and we will recheck a CBC in one month. - If her anemia continues to worsen we will order myeloma panel again. Emma Hilario CNP CC: Yamila Hayden Referring Provider: YAMILA HAYDEN [[id number]] Allergies As of Date: 11/15/2018 Noted Allergy Reaction DULOXETINE HCL 02/26/2018 16 - Unknown SEASONAL ALLERGIES 04/18/2018 14 - Other: See Comments Comments: Sneezing, runny nose TOMATOES 04/18/2018 9 - Itching Date Reviewed: 11/15/2018 Reviewed by: Emma Whitman) Rebeka - Fully Assessed Reason for Visit: F/U 6 Month [444] Diarrhea [35] Cmt: Black stool Fatigue [46] Reason For Visit History Recorded Primary Visit Diagnosis:Low hemoglobin [D64.9] Other Visit Diagnoses:Normocytic anemia, not due to blood loss [D64.9] MGUS (monoclonal gammopathy of unknown significance) [D47.2] Order(s):IRON + TIBC [SQIRON] Order #: [id number] FUTURE FERRITIN BLD [SQFERR] Order #: [id number] FUTURE RETIC COUNT [SQRETIC] Order #: [id number] FUTURE ABS GRAN CT + CBC (FOR REMOTE C USE) [SQRAGCBC] Order #: [id number] FUTURE OCCULT BLD EXAM-DIAG [SQOB] Order #: [id number] Follow-up and Disposition History Recorded Prescriptions as of 11/15/2018 Sig: DIVALPROEX 125 MG TABLET,KJ* Take 125 mg by mouth daily at* HYDROXYZINE PAMOATE 25 MG CAP* Take 25 mg by mouth. LEVOTHYROXINE 50 MCG TABLET Take 50 mcg by mouth. MAGNESIUM 250 MG ( MAGNESIU* 1 po q day METOPROLOL TARTRATE 25 MG TAB* Take 25 mg by mouth. PANTOPRAZOLE 40 MG GRANULES F* Take 40 mg by mouth. SULINDAC 200 MG TABLET 1 po bid PRN TIZANIDINE 4 MG TABLET AND IR* GABAPENTIN ORAL Take by mouth. TRAZODONE 150 MG TABLET Take 150 mg by mouth daily at* LANTUS SUBCUTANEOUS Inject 40 Units subcutaneousl* LIPITOR ORAL Take by mouth. Problem List As Of Date 11/15/2018 Noted Resolved Normocytic anemia, not due to blood loss [D64.9]INVALID FOR* Encounter Status:Closed by EMMA HILARIO PAN CLEANER on 11/23/18 Normal [facility] Ferritinon 11-15-2018 Ferritin [Mass/Vol] 132.8 ng/mL Normal 14.7-205.1 [facility] Comment on above: Performed By: #### R ETIC, IRON, FERR #### [facility] [address] [place], [place] [address] Iron and TIBCon 11-15-2018 Iron [Mass/Vol] 54 ug/dL Normal 41-186 [facility] Comment on above: Performed By: #### R ETIC, IRON, FERR #### [facility] [address] [place], [place] [address] TIBC 377 ug/dL Normal 232-386 [facility] Comment on above: Performed By: #### R ETIC, IRON, FERR #### [facility] [address] [place], [place] [address] Transferrin Saturatn 14 % Low 15-57 [facility] Comment on above: Performed By: #### R ETIC, IRON, FERR #### [facility] [address] [place], [place] [address] PROGRESSon 11-15-2018 PROGRESS HNO ID: [id number] Author: Emma Fish (Kathryn) Rebeka Service: ? Author Type: Nurse Practitioner Type: Progress Notes Filed: 11/23/2018 1:11 PM Note Text: REASON FOR VISIT: Leti Dela Cruz is a very pleasant 62 year old old female who is here for : Monoclonal gammopathy and anemia Per Dr. Evans's office visit notes: HPI She is feeling well except for depression. Her father is not doing well. She feels tired. She is anxious. ALLERGIES Allergen Reactions - Duloxetine Hcl Unknown - Seasonal Allergies Other: See Comments Sneezing, runny nose - Tomatoes Itching Current Outpatient Medications Medication Sig Dispense Refill - ondansetron orally disintegrating (ZOFRAN ODT) 4 mg disintegrating tablet Take 4 mg by mouth. - hydrOXYzine pamoate (VISTARIL) 25 mg capsule Take 25 mg by mouth. - levothyroxine (SYNTHROID) 50 mcg tablet Take 50 mcg by mouth. - Magnesium Oxide 250 mg tab 1 po q day - metoprolol tartrate, short acting, (LOPRESSOR) 25 mg tablet Take 25 mg by mouth. - pantoprazole (PROTONIX) 40 mg grps Take 40 mg by mouth. - sulindac (CLINORIL) 200 mg tablet 1 po bid PRN - Tizan-M Em-Uuaz-WGY-Sophia-Men-Al (COMFORT PAC-TIZANIDINE) 4 mg kit - GABAPENTIN ORAL Take by mouth. - traZODone (DESYREL) 150 mg tablet Take 150 mg by mouth daily at bedtime. - insulin glargine,hum.rec.anlog (LANTUS SUBCUTANEOUS) Inject 40 Units subcutaneously. - atorvastatin calcium (LIPITOR ORAL) Take by mouth. - omega-3s/dha/epa/fish oil/D3 (VITAMIN-D + OMEGA-3 ORAL) Take by mouth. No current facility-administered medications for this visit. CURRENT STATUS: She presents today for 6 month follow-up visit. She reports that in the past 6 months she had a trip to the emergency room in June due to itching and nausea. Her last colonoscopy was in [place] [address] Macdonald. ROS: Constitutional: Negative for activity change, appetite change, chills, fatigue, fever and unexpected weight change. HENT: Negative for hearing loss, sore throat, trouble swallowing and voice change. Eyes: Negative. Respiratory: Negative for cough, choking and wheezing. Cardiovascular: Negative for chest pain, palpitations and leg swelling. Gastrointestinal: Negative for abdominal distention, abdominal pain, blood in stool, constipation, diarrhea, nausea and vomiting. Endocrine: Negative for cold intolerance and heat intolerance. Genitourinary: Negative for hematuria, menstrual problem and vaginal bleeding. Musculoskeletal: Negative for arthralgias, back pain, gait problem, joint swelling and myalgias. Skin: Negative for color change, pallor and wound. Neurological: Negative for light-headedness and numbness. Hematological: Negative for adenopathy. Does not bruise/bleed easily. Psychiatric/Behavioral: Negative for confusion. The patient is not nervous/anxious. PHYSICAL EXAM BP 140/56 Pulse (!) 51 Temp 36.2 ?C (97.1 ?F) (Oral) Resp 16 Ht 152.3 cm (4' 11.96) Wt 62.3 kg (137 lb 4.8 oz) SpO2 94% BMI 26.85 kg/m? ECOG PERFORMANCE STATUS:0- Fully active, able to carry on all pre-disease performance w/o restriction. Physical Exam Constitutional: She is oriented to person, place, and time. She appears well-nourished. HENT: Head: Normocephalic and atraumatic. Mouth/Throat: Oropharynx is clear and moist. Eyes: Pupils are equal, round, and reactive to light. Conjunctivae are normal. Neck: Normal range of motion. Neck supple. No tracheal deviation present. Cardiovascular: Normal rate and regular rhythm. Pulmonary/Chest: Effort normal and breath sounds normal. No respiratory distress. Abdominal: Soft. Bowel sounds are normal. She exhibits no distension and no mass. Musculoskeletal: Normal range of motion. She exhibits no edema or deformity. Neurological: She is alert and oriented to person, place, and time. Skin: Skin is warm and dry. No rash noted. No erythema. No pallor. Psychiatric: She has a normal mood and affect. Her behavior is normal. LABS: Component Latest Ref Rng AND Units 11/08/2018 WBC 3.70 - 11.00 k/uL 9.11 RBC 3.90 - 5.20 m/uL 3.64 (L) Hemoglobin 11.5 - 15.5 g/dL 11.1 (L) Hematocrit 36.0 - 46.0 % 33.5 (L) MCV 80.0 - 100.0 fL 92.0 MCH 26.0 - 34.0 pG 30.5 MCHC 30.5 - 36.0 g/dL 33.1 RDW-CV 11.5 - 15.0 % 13.1 Platelet Count 150 - 400 k/uL 373 MPV 9.0 - 12.7 fL 9.3 Neut% % 57.0 Abs Neut (ANC) 1.45 - 7.50 k/uL 5.19 Lymph% % 30.2 Abs Lymph 1.00 - 4.00 k/uL 2.75 [place]% % 6.9 Abs [place] <0.87 k/uL 0.63 Eosin% % 4.7 Abs Eosin <0.46 k/uL 0.43 Baso% % 1.2 Abs Baso <0.11 k/uL 0.11 (H) Protein, Total 6.3 - 8.0 g/dL 6.8 Albumin 3.9 - 4.9 g/dL 4.3 Calcium 8.5 - 10.2 mg/dL 9.5 Bilirubin, Total 0.2 - 1.3 mg/dL 0.2 Alkaline Phosphatase 34 - 123 U/L 61 AST 13 - 35 U/L 10 (L) Glucose 74 - 99 mg/dL 127 (H) BUN 7 - 21 mg/dL 18 Creatinine 0.58 - 0.96 mg/dL 1.08 (H) Sodium 136 - 144 mmol/L 133 (L) Potassium 3.7 - 5.1 mmol/L 5.2 (H) Chloride 97 - 105 mmol/L 98 CO2 22 - 30 mmol/L 27 Anion Gap 9 - 18 mmol/L 8 (L) ALT 7 - 38 U/L 12 eGFR- >60 eGFR-All Other Races . 51 Vitamin B12 232 - 1,245 pg/mL 416 ASSESSMENT: Problem List Items Addressed This Visit None PLAN: MGUS, IgG monoclonal with [place] light chain specificity, too small to quantify , on 10/8/18 Repeat in 03/2018: No M protein or light chain detected. - repeat labs on 04/18/18: Monoclonal protein: No M spike K/L ratio: 1.59 04/23/18: 24 hour urine: Negative for monoclonal protein 04/18/2018 13:57 WBC: 8.97 RBC: 3.69 (L) Hemoglobin: 11.0 (L) Hematocrit: 33.5 (L) Platelet Count: 381 04/23/18: Skeletal survey: tiny lesions on skeeltal survey , either lesions or small vascular lakes. - No further workup needed for this, unless she has worsening anemia or other symptoms/labs to warrant workup again. Her hemoglobin on 02/26 was 10.7, on 05/03 was 13.1 and on 11/08 was 11.1. She has worsening anemia since April 2018. She reports that for the past 4 months she has not taken her B12 I have asked her to resume this and we'll recheck her CBC and a visit with me in 4 weeks. Today we'll also draw a ferritin level iron TIBC and retic count. I have also ordered a stool for occult blood and she will collect this from home. Her last colonoscopy was June,. 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 ?I have asked her to resume the supplements daily and we will recheck a CBC in one month. - If her anemia continues to worsen we will order myeloma panel again. Emma Hilario, PAN CLEANER CC: Yamila Hayden Normal [facility] Reticulocyteon 11-15-2018 Abs Retic 0.078 M/uL Normal 0.0180-0.1 000 [facility] Comment on above: Performed By: #### R ETIC, IRON, FERR #### [facility] [address] [place], [place] [address] Retic% 2.2 % High 0.4-2.0 [facility] Comment on above: Performed By: #### R ETIC, IRON, FERR #### [facility] [address] [place], [place] [address] CBC and Differentialon 11-08 Abs Baso 0.11 k/uL High <0.11 [facility] Abs [place] 0.63 k/uL Normal <0.87 [facility] Abs Neut 5.19 k/uL Normal 1.45-7.50 [facility] Basophils/100 WBC (Bld) 1.2 % Normal [facility] Eosinophils (Bld) [#/Vol] 0.43 10*3/uL Normal <0.46 [facility] Eosinophils/100 WBC (Bld) 4.7 % Normal [facility] Erythrocyte distribution width (RBC) [Ratio] 13.1 % Normal 11.5-15.0 [facility] Hematocrit (Bld) [Volume fraction] 33.5 % Low 36.0-46.0 [facility] Hemoglobin (Bld) [Mass/Vol] 11.1 g/dL Low 11.5-15.5 [facility] Lymphocytes (Bld) [#/Vol] 2.75 10*3/uL Normal 1.00-4.00 [facility] Lymphocytes/100 WBC (Bld) 30.2 % Normal [facility] MCH (RBC) [Entitic mass] 30.5 pG Normal 26.0-34.0 [facility] MCHC (RBC) [Mass/Vol] 33.1 g/dL Normal 30.5-36.0 [facility] MCV (RBC) [Entitic vol] 92.0 fL Normal 80.0-100.0 [facility] Monocytes/100 WBC (Bld) 6.9 % Normal [facility] Neutrophils/100 WBC (Bld) 57.0 % Normal [facility] Platelet mean volume (Bld) [Entitic vol] 9.3 fL Normal 9.0-12.7 [facility] Platelets (Bld) [#/Vol] 373 10*3/uL Normal 150-400 [facility] RBC (Bld) [#/Vol] 3.64 10*6/uL Low 3.90-5.20 [facility] WBC (Bld) [#/Vol] 9.11 10*3/uL Normal 3.70-11.00 [facility] Comp Metabolic Panelon 11-08 Albumin [Mass/Vol] 4.3 g/dL Normal 3.9-4.9 [facility] ALP [Catalytic activity/Vol] 61 U/L Normal 34-123 [facility] ALT [Catalytic activity/Vol] 12 U/L Normal 7-38 [facility] Anion gap [Moles/Vol] 8 mmol/L Low 9-18 [facility] AST [Catalytic activity/Vol] 10 U/L Low 13-35 [facility] Bilirubin [Mass/Vol] 0.2 mg/dL Normal 0.2-1.3 [facility] Calcium [Mass/Vol] 9.5 mg/dL Normal 8.5-10.2 [facility] Chloride [Moles/Vol] 98 mmol/L Normal 97-105 [facility] CO2 [Moles/Vol] 27 mmol/L Normal 22-30 [facility] Creatinine [Mass/Vol] 1.08 mg/dL High 0.58-0.96 [facility] eGFR- Amer. >60 Normal [facility] GFR/1.73 sq M predicted among non-blacks MDRD (S/P/Bld) [Vol rate/Area] 51 . Normal [facility] Comment on above: Result Comment: eGFR (Estimated GFR) Units of measure: mL/min/1.73 meters squared eGFR is derived from the reexpressed MDRD Study equation using the following parameters: serum creatinine, age, gender and race. The creatinine assay has been calibrated to be traceable to IDMS. An eGFR <60 mL/min/1.73m2 for >3 months is consistent with chronic kidney disease. Refer to KDOQI guidelines for clinical interpretation. In patients with unstable renal function, e.g. those with acute kidney injury, the eGFR may not accurately reflect actual GFR. Glucose [Mass/Vol] 127 mg/dL High 74-99 [facility] Comment on above: Result Comment: The [place] Diabetes Association (ADA) provides guidance for cutoff values for fasting glucose and random glucose. The ADA defines fasting as no caloric intake for at least 8 hours. Fasting plasma glucose results between 100 to 125 mg/dL indicate increased risk for diabetes (prediabetes). Fasting plasma glucose results greater than or equal to 126 mg/dL meet the criteria for diagnosis of diabetes. In the absence of unequivocal hyperglycemia, results should be confirmed by repeat testing. In a patient with classic symptoms of hyperglycemia or hyperglycemic crisis, random plasma glucose results greater than or equal to 200 mg/dL meet the criteria for diagnosis of diabetes. Reference: Standards of Medical Care in Diabetes 2016, [place] [employer]. Diabetes Care. 2016.39(Suppl 1). Potassium [Moles/Vol] 5.2 mmol/L High 3.7-5.1 [facility] Protein [Mass/Vol] 6.8 g/dL Normal 6.3-8.0 [facility] Sodium [Moles/Vol] 133 mmol/L Low 136-144 [facility] Urea nitrogen [Mass/Vol] 18 mg/dL Normal 7-21 [facility] Vitamin B12on 11-08-2018 Cobalamin (Vitamin B12) [Mass/Vol] 416 pg/mL Normal 232-1245 [facility] Comment on above: Performed By: #### B 12 #### [facility] [place] [address] [place] Mamm Screen w/CAD if perf and 3D [place] 10-25-2018 Bilirubin.direct [Mass/Vol] Exam Date/Time: 10/24/2018 13:45 EDT Reason for Exam: SCREENING 3D POST MENOPAUSAL;Screening Report STUDY: Digital mammography screening with kali; 10/24/2018 1:45 pm ACCESSION NUMBER(S): [id number] ORDERING CLINICIAN: Yamila Hayden INDICATION: Screening. COMPARISON: Comparison is made to prior digital mammograms dated06/17/2016 and 11/08/2012 FINDINGS: CC and MLO 2D digital mammograms and digital breast tomosynthesis images were obtained of the bilateral breasts. 3-D volume images were reconstructed in 4 views at an independent workstation as 1 mm slices through the breasts in both the CC and MLO projections. There are areas of scattered fibroglandular tissue. No discrete mass or focal asymmetry is identified. No suspicious microcalcifications or foci of architectural distortion are seen. There has been no significant change. This study was interpreted with CAD. IMPRESSION: No mammographic evidence of malignancy. BI-RADS CATEGORY: Category: 1 - Negative. Recommendation: Normal Interval Follow-up, Over Age 40. Recall Interval: 12 Months. Breast Density: Scattered Fibroglandular Density. FINAL REPORT Dictated: 10/25/2018 9:23 am Frank Marion MD Signed (Electronic Signature): 10/25/2018 9:23 am Signed by: Frank Marion MD Technologist: YANIV Assessment: BI-RADS Category 1-Negative Recommendation: Normal interval follow-up Normal [facility] BD Bone Density DEXAon 10-24 BD Bone Density DEXA Exam Date/Time: 10/24/2018 13:31 EDT Reason for Exam: SCREENING 3D POST MENOPAUSAL;Post menopausal Report STUDY: BD Bone Density DEXA; 10/24/2018 1:31 pm INDICATION: Post menopausal. Evaluate for osteopenia/osteoporosis, ACCESSION NUMBER(S): [id number] ORDERING CLINICIAN: Yamila Hayden FINDINGS: Standard measurements were obtained utilizing an [employer] X-ray Absorptiometry bone densitometer. Data obtained includes planar bone density measurements over the left hip and lumbar spine. Comparison of measured data and standardized mean data for a young adult population (when peak bone mass occurs) results in a T score. This represents the number of standard deviations above or below the mean of a young adult population. Comparison of measured data to standards from an age-adjusted population similarly yields a Z score. Left femoral neck Bone density: 0.767 g/cm2 T score: -0.7 Z Score: 0.6 Lumbar Spine (L1-4) Bone density: 1.148 g/cm2 T Score: 0.9 Z Score: 2.5 World Health Organization (WHO) criteria defines normal bone density as that which is less than 1 standard deviation below the mean of a young adult population. Osteopenia is defined as a measured bone density that is between 1 and 2.5 standard deviations below the mean of a young adult population. Osteoporosis is defined as a measured bone density that is greater than or equal to 2.5 standard deviations below the mean of a young adult population. IMPRESSION: Exam Date/Time: 10/24/2018 13:31 EDT Report According to World Health Organization criteria, bone mineral density of the left femoral neck and lumbar spine is within the limits of normal. FINAL REPORT Dictated: 10/24/2018 2:46 pm Frank Marion MD Signed (Electronic Signature): 10/24/2018 2:46 pm Signed by: Frank Marion MD Technologist: YANIV [facility] XR Chest 2 Viewson 9 XR Chest 2 Views Exam Date/Time: 10/24/2018 13:55 EDT Reason for Exam: Cough Report STUDY: XR Chest 2 Views; 10/24/2018 1:55 pm INDICATION: Cough. COMPARISON: 02/28/2017 ACCESSION NUMBER(S): [id number] ORDERING CLINICIAN: Iris Blakely FINDINGS: PA and lateral views of the chest were obtained. No focal infiltrate, pleural effusion or pneumothorax is identified. The cardiac silhouette is within normal limits for size. Mild discogenic degenerative changes are seen throughout the thoracic spine. IMPRESSION: No focal infiltrate or pneumothorax. FINAL REPORT Dictated: 10/24/2018 2:46 pm Frank Marion MD Signed (Electronic Signature): 10/24/2018 2:46 pm Signed by: Frank Marion MD Technologist: YANIV [facility] CT Spine Cervical w/o Contra ston 08-28-2018 CT Spine Cervical w/o Contrast Exam Date/Time: 08/28/2018 14:31 EDT Reason for Exam: Sprain/Strain Report STUDY: CT Spine Cervical w/o Contrast; 08/28/2018 2:31 pm INDICATION: Sprain/Strain. COMPARISON: None. ACCESSION NUMBER(S): [id number] ORDERING CLINICIAN: Mark Alcantar TECHNIQUE: Contiguous axial CT images were obtained at 2 mm slice thickness through the cervical spine without contrast administration. The images were then reconstructed in the coronal and sagittal planes. FINDINGS: There is no CT evidence of acute fracture identified. No prevertebral soft tissue swelling is identified. ALIGNMENT: There is mild retrolisthesis of C4 on C5 and of C5 on C6. VERTEBRAE/DISC SPACES: Mild disc space narrowing and small marginal osteophytes are present at the C4-5, C5-6 and C6-7 levels. Mild facet degenerative changes are seen throughout the cervical spine. C2-3: There is no significant neural foraminal or central canal narrowing identified. C3-4: There is no significant neural foraminal or central canal narrowing identified. C4-5: At least [id number] central canal narrowing is present. Mild right-sided neural foraminal narrowing is seen. C5-6: At least mild central canal narrowing is present. Mild right-sided and moderate left-sided neural foraminal narrowing is seen. C6-7: Mild neural foraminal narrowing is seen. Minimal central canal narrowing is seen. Exam Date/Time: 08/28/2018 14:31 EDT Report C7-T1: Mild neural foraminal narrowing is seen bilaterally. No significant central canal narrowing is seen. ADDITIONAL FINDINGS: Evaluation of the visualized soft tissues of the neck is limited by the lack of intravenous contrast. Within this limitation, no gross mass or lymphadenopathy is identified. Dense atherosclerotic calcifications are seen in the carotid bulbs bilaterally. IMPRESSION: 1. No CT evidence of acute fracture. 2. Degenerative changes throughout the cervical spine, as above. FINAL REPORT Dictated: 08/28/2018 2:51 pm Frank Marion MD Signed (Electronic Signature): 08/28/2018 2:51 pm Signed by: Frank Marion MD Technologist: JAEL [facility] CT Thorax w/o Contraston CT Thorax w/o Contrast Exam Date/Time: 06/26/2018 13:58 EST Reason for Exam: PULMONARY NODULE;Other (please specify) Report STUDY: CT Thorax w/o Contrast; 06/26/2018 1:58 pm INDICATION: Follow-up lung nodule COMPARISON: CT chest dated 07/18/2016 ACCESSION NUMBER(S): [id number] ORDERING CLINICIAN: Yamila Hayden TECHNIQUE: Contiguous axial CT images were obtained through the chest at 2 mm slice thickness withoutadministration of intravenous contrast. The images were then reconstructed in the coronal and sagittal planes. FINDINGS: POTENTIAL LIMITATIONS OF THE STUDY:The study is somewhat limited by the lack of intravenous contrast. CHEST WALL AND LOWER NECK: Evaluation of the visualized neck base demonstrates no gross mass or lymphadenopathy. MEDIASTINUM AND RITA: There is no gross axillary, rita or mediastinal lymphadenopathy identified. HEART: The heart is within normal limits for size. No pericardial effusion is identified. Dense atherosclerotic calcifications are seen throughout the coronary arteries. Ndrz-xl-wunekydn aortic valve calcifications are present. VESSELS: Qtve-yq-rfuhvzok atherosclerotic calcifications are seen in the aortic arch and descending thoracic aorta, including at the origins of the arch vessels. The thoracic aorta is within normal limits for course and caliber, without evidence of aneurysm. LUNG/PLEURA/LARGE AIRWAYS: A linear density is seen in the anterior inferior aspect of the left lower lobe, most consistent with scarring. There is no focal infiltrate, pleural effusion or pneumothorax identified. A partially calcified 1.1 cm nodule is seen in the posterior aspect of the left lung base (image 239/321), similar in size to the prior study. No new or enlarging pulmonary nodules or masses are seen. Exam Date/Time: 06/26/2018 13:58 EST Report UPPER ABDOMEN: Evaluation of the visualized upper abdomen demonstrates no discrete mass or lymphadenopathy. The patient is noted to be status post cholecystectomy. OSSEOUS STRUCTURES: There is no evidence of acute fracture identified. Multilevel degenerative changes are seen in the thoracic spine. IMPRESSION: 1. Partially calcified nodule at the left lung base, consistent with calcified granulomatous disease. 2. No new or enlarging pulmonary nodules or masses identified. 3. No focal infiltrate or lymphadenopathy identified. FINAL REPORT Dictated: 06/27/2018 10:01 am Frank Marion MD Signed (Electronic Signature): 06/27/2018 10:01 am Signed by: Frank Marion MD Technologist: CH[place] Normal [facility] Auto Diffon 06-13-2018 Basophils (Bld) [#/Vol] 0.1 E3/mcL Normal 0.0-0.2 [facility] Comment on above: Order Comment: Order Added by Discern Expert. Performed By: #### 2 [id number] #### KATHERINE RemHemo [facility] [place] [address] Basophils/100 WBC (Bld) 1.2 % Normal 0.0-2.0 [facility] Comment on above: Order Comment: Order Added by Discern Expert. Performed By: #### 2 [id number] #### KATHERINE Rem[facility] [address] [place] [address] Eos Absolute 0.3 E3/mcL Normal 0.0-0.7 [facility] Comment on above: Order Comment: Order Added by Discern Expert. Performed By: #### 2 [id number] #### KATHERINE [facility]iles[facility] [address] [place] [address] Eosinophils/100 WBC (Bld) 2.5 % Normal 0.0-11.0 [facility] Comment on above: Order Comment: Order Added by Discern Expert. Performed By: #### 2 [id number] #### KATHERINE Stiles[facility] [address] [place] [address] Lymphocytes (Bld) [#/Vol] 3.2 E3/mcL Normal 1.2-3.4 [facility] Comment on above: Order Comment: Order Added by Discern Expert. Performed By: #### 2 [id number] #### KATHERINE Stiles[facility] [address] [place] [address] Lymphocytes/100 WBC (Bld) 26.6 % Normal 20.0-55.0 [facility] Comment on above: Order Comment: Order Added by Discern Expert. Performed By: #### 2 [id number] #### KATHERINE Stiles[facility] [address] [place] [address] [place] Absolute 0.6 E3/mcL Normal 0.0-0.7 [facility] Comment on above: Order Comment: Order Added by Discern Expert. Performed By: #### 2 [id number] #### KATHERINE Stiles[facility] [address] [place] [address] Monocytes/100 WBC (Bld) 5.0 % Normal 0.0-10.0 [facility] Comment on above: Order Comment: Order Added by Discern Expert. Performed By: #### 2 [id number] #### KATHERINE St[facility] [address] [place] [address] Neutro Absolute 7.7 E3/mcL High 1.4-6.5 [facility] Comment on above: Order Comment: Order Added by Discern Expert. Performed By: #### 2 [id number] #### KATHERINE Stiles[facility]emo [address] [place] [address] Neutro Auto 64.7 % Normal 37.0-75.0 [facility] Comment on above: Order Comment: Order Added by Discern Expert. Performed By: #### 2 [id number] #### KATHERINE Rem[facility]emo [address] [place] [address] CBC w/ Auto Diffon 01-23-201 9 Erythrocyte distribution width (RBC) [Ratio] 14.0 % Normal 11.5-14.5 [facility] Comment on above: Performed By: #### 2 [id number] #### KATHERINE Stiles[facility] [address] [place] [address] Hematocrit (Bld) [Volume fraction] 36.0 % Normal 36.0-48.0 [facility] Comment on above: Performed By: #### 2 [id number] #### KATHERINE StilesHemo [facility] [place] [address] Hemoglobin (Bld) [Mass/Vol] 12.0 g/dL Normal 12.0-16.0 [facility] Comment on above: Performed By: #### 2 [id number] #### KATHERINE StilesHemo [facility] [place] [address] MCH (RBC) [Entitic mass] 30.9 pg Normal 27.0-31.0 [facility] Comment on above: Performed By: #### 2 [id number] #### KATHERINE StilesHemo [facility] [place] [address] MCHC (RBC) [Mass/Vol] 33.4 g/dL Normal 33.0-37.0 [facility] Comment on above: Performed By: #### 2 [id number] #### KATHERINE StilesHemo [address] [place] [address] MCV (RBC) [Entitic vol] 92.3 fL Normal 78.0-100.0 [facility] Comment on above: Performed By: #### 2 [id number] #### KATHERINE StilesHemo [facility] [place] [address] Platelet mean volume (Bld) [Entitic vol] 7.7 fL Normal 7.4-11.0 [facility] Comment on above: Performed By: #### 2 [id number] #### KATHERINE StilesHemo [address] [place] [address] Platelets (Bld) [#/Vol] 422 E3/mcL High 130-400 [facility] Comment on above: Performed By: #### 2 [id number] #### KATHERINE StilesHemo [facility] [place] [address] RBC (Bld) [#/Vol] 3.90 E6/mcL Normal 3.90-5.40 [facility] Comment on above: Performed By: #### 2 [id number] #### KATHERINE StilesHemo [address] [place] [address] WBC (Bld) [#/Vol] 11.9 E3/mcL High 3.6-11.0 [facility] Comment on above: Performed By: #### 2 [id number] #### KATHERINE StilesHemo [address] [place] [address] CMPon 06-13-2018 Albumin [Mass/Vol] 4.7 g/dL Normal 3.4-5.0 [facility] Comment on above: Performed By: #### 2 [id number] #### KATHERINE [facility] [address] [place] [address] Albumin/Globulin [Mass ratio] 1.6 {ratio} Normal 1.1-1.9 [facility] Comment on above: Performed By: #### 2 [id number] #### KATHERINE [facility] [address] [place] [address] Alk Phos 78 Int._Unit/L Normal 33-136 [facility] Comment on above: Performed By: #### 2 [id number] #### KTAHERINE [facility] [address] [place] [address] ALT [Catalytic activity/Vol] 12 Int._Unit/L Normal 7-45 [facility] Comment on above: Performed By: #### 2 [id number] #### KATHERINE [facility] [address] [place] [address] Anion gap [Moles/Vol] 14 mmol/L Normal 10-20 [facility] Comment on above: Performed By: #### 2 [id number] #### KATHERINE [facility] [address] [place] [address] AST [Catalytic activity/Vol] 11 Int._Unit/L Normal 9-39 [facility] Comment on above: Performed By: #### 2 [id number] #### KATHERINE [facility] [address] [place] [address] Bili Total 0.38 mg/dL Normal 0.00-1.20 [facility] Comment on above: Performed By: #### 2 [id number] #### KATHERINE [facility] [address] [place] [address] Calcium [Mass/Vol] 9.6 mg/dL Normal 8.6-10.3 [facility] Comment on above: Performed By: #### 2 [id number] #### KATHERINE [facility] [address] [place] [address] Chloride [Moles/Vol] 101 mmol/L Normal 98-107 [facility] Comment on above: Performed By: #### 2 [id number] #### KATHERINE [facility] [address] [place] [address] CO2 [Moles/Vol] 28.0 mmol/L Normal 21.0-32.0 [facility] Comment on above: Performed By: #### 2 [id number] #### KATHERINE [facility] [address] [place] [address] Creatinine [Mass/Vol] 1.1 mg/dL Normal 0.5-1.1 [facility] Comment on above: Performed By: #### 2 [id number] #### KATHERINE [facility] [address] [place] [address] Globulin (S) [Mass/Vol] 3.0 g/dL Normal 2.0-4.0 [facility] Comment on above: Performed By: #### 2 [id number] #### KATHERINE [employer] [address] [place] [address] Glucose [Mass/Vol] 82 mg/dL Normal 70-99 [facility] Comment on above: Performed By: #### 2 [id number] #### KATHERINE [employer] [address] [place] [address] Potassium [Moles/Vol] 4.1 mmol/L Normal 3.5-5.3 [facility] Comment on above: Performed By: #### 2 [id number] #### KATHERINE [employer] [address] [place] [address] Protein [Mass/Vol] 7.6 g/dL Normal 6.4-8.2 [facility] Comment on above: Performed By: #### 2 [id number] #### KATHERINE [employer] [address] [place] [address] Sodium [Moles/Vol] 138 mmol/L Normal 136-145 [facility] Comment on above: Performed By: #### 2 [id number] #### KATHERINE [employer] [address] [place] [address] Urea nitrogen [Mass/Vol] 25 mg/dL High 6-23 [facility] Comment on above: Performed By: #### 2 [id number] #### KATHERINE [employer] [address] [place] [address] Urea nitrogen/Creatinine [Mass ratio] 22.7 ratio Normal 5.4-30.0 [facility] Comment on above: Performed By: #### 2 [id number] #### KATHERINE [employer] [address] [place] [address] [id number] 06-13-2018 HbA1c (Bld) [Mass fraction] 6.6 % High 4.0-6.3 [facility] Comment on above: Performed By: #### 3 [id number] #### KATHERINE Chemistry Manual Subsection [address] [place] [address] Lipid Profileon 06-13-2018 Cholesterol [Mass/Vol] 239 mg/dL High 0-199 [facility] Comment on above: Performed By: #### 3 [id number] #### KATHERINE [employer] [address] [place] [address] Cholesterol in HDL [Mass/Vol] 54 mg/dL Normal 40-60 [facility] Comment on above: Performed By: #### 3 [id number] #### KATHERINE [employer] [address] [place] [address] Cholesterol in LDL [Mass/Vol] 119 mg/dL Normal 0-130 [facility] Comment on above: Performed By: #### 3 [id number] #### KATHERINE [employer] [address] [place] [address] Cholesterol in VLDL [Mass/Vol] 66 mg/dL High 0-40 [facility] Comment on above: Performed By: #### 3 [id number] #### KATHERINE [employer] [address] [place] [address] Triglyceride [Mass/Vol] 330 mg/dL High 0-149 [facility] Comment on above: Result Comment: AGE DESIRABLE BORDERLINE HIGH 91 D - 9 Y 0 - 74 75 - 99 > 100 10 - 19 Y 0 - 89 90 - 129 > 130 20 - 24 Y 0 - 114 115 - 149 > 150 > 25 0 - 149 150 - 199 200 - 499 Performed By: #### 3 [id number] #### KATHERINE [employer] [address] [place] [address] Microalb/Creat Ratioon 06-13 Creatinine [Mass/Vol] 77 ug/mg High 0-30 [facility] Comment on above: Performed By: #### 1 [id number] #### KATHERINE [employer] [address] [place] [address] Creatinine [Mass/Vol] 101.0 mg/dL Normal 20.0-300.0 [facility] Comment on above: Performed By: #### 1 [id number] #### KATHERINE [employer] [facility] [place] [address] Ur Microalbumin 7.8 mg/dL High 0.0-1.9 [facility] Comment on above: Performed By: #### 1 [id number] #### KATHERINE [employer] [address] [place] [address] TSHon 06-13-2018 TSH Qn 1.93 mcIU/mL Normal 0.30-5.60 [facility] Comment on above: Performed By: #### 2 [id number] #### KATHERINE [employer] [address] [place] [address] UA Completeon 06-13-2018 Color (U) Yellow Normal Yellow [facility] Comment on above: Performed By: #### 8 [id number] #### KATHERINE Urinalysis Automated Subsection [address] [place] [address] Glucose (U) [Mass/Vol] Negative Normal Negative [facility] Comment on above: Performed By: #### 8 [id number] #### KATHERINE Urinalysis Automated Subsection [address] [place] [address] Ketones Ql (U) Negative Normal Negative [facility] Comment on above: Performed By: #### 8 [id number] #### KATHERINE Urinalysis Automated Subsection [address] [place] [address] UA Blood Negative Normal Negative [facility] Comment on above: Performed By: #### 8 [id number] #### KATHERINE Urinalysis Automated Subsection [address] [place] [address] UA Clarity Clear Normal Clear [facility] Comment on above: Performed By: #### 8 [id number] #### KATHERINE Urinalysis Automated Subsection [address] [place] [address] UA Leuk Est Negative Normal Negative [facility] Comment on above: Performed By: #### 8 [id number] #### KATHERINE Urinalysis Automated Subsection [address] [place] [address] UA Mucous Trace Abnormal Trace [facility] Comment on above: Performed By: #### 8 [id number] #### KATHERINE Urinalysis Automated Subsection [address] [place] [address] UA Nitrite Negative Normal Negative [facility] Comment on above: Performed By: #### 8 [id number] #### KATHERINE Urinalysis Automated Subsection [address] [place] [address] UA pH 5.0 Normal 4.6-8.0 [facility] Comment on above: Performed By: #### 8 [id number] #### KATHERINE Urinalysis Automated Subsection [address] [place] [address] UA Protein Negative Normal Negative [facility] Comment on above: Performed By: #### 8 [id number] #### KATHERINE Urinalysis Automated Subsection [address] [place] [address] UA Spec Grav 1.015 Normal 1.003-1.03 0 [facility] Comment on above: Performed By: #### 8 [id number] #### KATHERINE Urinalysis Automated Subsection [address] [place] [address] UA Squam Epithelial 0-5 Normal 0-5 [facility] Comment on above: Performed By: #### 8 [id number] #### KATHERINE Urinalysis Automated Subsection [address] [place] [address] UA Urobilinogen Negative Normal [facility] Comment on above: Result Comment: Due to a manufacturing issue, low positive urobilinogen results may be fasely positive. Correlate with urine bilirubin and additional clinical/laboratory findings to assess the risk of hemolytic anemia or liver disease. If clinically indicated, repeat testing with an alternate method is available by contacting the laboratory within 24 hours. Performed By: #### 8 [id number] #### KATHERINE Urinalysis Automated Subsection [facility] [place] [address] Urobilinogen Qn (U) Negative Normal Negative [facility] Comment on above: Performed By: #### 8 [id number] #### KATHERINE Urinalysis Automated Subsection [address] [place] [address] eGFRon 06-13-2018 GFR/1.73 sq M predicted among non-blacks MDRD (S/P/Bld) [Vol rate/Area] 49 mL/min/1.73 m2 Normal [facility] Comment on above: Order Comment: Order added by Discern Expert. Performed By: #### 1 [id number] #### KATHERINE [employer] [facility] [place] [address] GFR/1.73 sq M predicted among non-blacks MDRD (S/P/Bld) [Vol rate/Area] 60 mL/min/1.73 m2 [facility] Comment on above: Order Comment: Order added by Discern Expert. Performed By: #### 1 [id number] #### KATHERINE [employer] [facility] [place] [address] BLOOD GAS VENOUSon 8 Arterial patency Wrist artery --pre arterial puncture NOT APPLICABLE Invalid Interpretation Code [address] Base excess Calculated molar conc (BldV) 1.9 Invalid Interpretation Code [address] Carbon dioxide/Gas.total.at end expiration in Exhaled gas 20.0 Invalid Interpretation Code Vol% [address] Carboxyhemoglobin/Hemo globin.total mass fraction (Bld) 3.6 % Invalid Interpretation Code [address] CO2 ppres (BldC) 24.[address] Diagnosis Narrative UNKNOWN Invalid Interpretation Code [address] HCO3 molar conc (Bld) 22.6 mmol/L Invalid Interpretation Code [address] Hemoglobin mass conc (Bld) 12.5 g/dL Invalid Interpretation Code [address] Interpretation and review of laboratory results Abnormal Invalid Interpretation Code [address] Methemoglobin/Hemoglob in.total mass fraction (BldC) 0.8 % Invalid Interpretation Code [address] O2 Device UNKNOWN Invalid Interpretation Code [address] Oxygen ppres (BldC) 28.[address] Oxygen saturation in Capillary blood 51.4 % Low 68 - 77 % [address] Oxyhemoglobin/Hemoglob in.total mass fraction (Bld) 49.1 % Invalid Interpretation Code [address] Patient PO2 Settings UNKNOWN Invalid Interpretation Code [address] pH (BldC) 7.[address] Specimen site Narrative LAB Invalid Interpretation Code [address] CBC, EDIF, PLATELETon 2017 ABSOLUTE BASOPHIL COUNT 0.1 Invalid Interpretation Code X10 [address] Basophils/100 WBC Auto (Bld) 1.1 % Invalid Interpretation Code 0 - 2 % [address] Differential cell count method Nom (Bld) AUTO DIFF Invalid Interpretation Code % [address] Eosinophils Auto #/vol (Bld) 0.20 10*3/uL Invalid Interpretation Code X10 [address] Eosinophils/100 WBC Auto (Bld) 1.3 % Invalid Interpretation Code 0 - 11 % [address] Erythrocyte distribution width Ratio (RBC) 14.2 % Invalid Interpretation Code 11.5 - 14.5 % [address] Hematocrit Auto Volume Fraction (Bld) 37.7 % Invalid Interpretation Code 36 - 48 % [address] Hemoglobin mass conc (Bld) 13.1 g/dL Invalid Interpretation Code [address] Lymphocytes Manual cnt #/vol (Bld) 3.20 Invalid Interpretation Code X10 [address] Lymphocytes/100 WBC Auto (Bld) 25.8 % Invalid Interpretation Code 20 - 55 % [address] MCH Auto Entitic mass (RBC) 30.6 pg Invalid Interpretation Code 26 - [address] MCHC Auto mass conc (RBC) 34.6 g/dL Invalid Interpretation Code [address] MCV Auto Entitic volume (RBC) 88.2 fL Invalid Interpretation Code [address] Monocytes Manual cnt #/vol (Bld) 0.7 Invalid Interpretation Code X10 [address] Monocytes/100 WBC Auto (Bld) 5.7 % Invalid Interpretation Code 0 - 10 % [address] Neutrophils Auto #/vol (Bld) 8.1 10*3/uL High [address] Neutrophils/100 WBC Auto (Bld) 66.1 % Invalid Interpretation Code 37 - 75 % [address] Platelet mean volume Auto Entitic volume (Bld) 7.2 fL Low [address] Platelets Auto #/vol (Bld) 436 10*3/uL [address] RBC Auto #/vol (Bld) 4.28 10*6/uL Invalid Interpretation Code [address] WBC Auto #/vol (Bld) 12.2 10*3/uL High ON [address] COMPREHENSIVE METABOLIC PANE [place] 05-03-2018 Albumin mass conc 4.7 G/dl Invalid Interpretation Code 3.5 - 5 G/dl [address] Albumin/Globulin mass ratio 1.6 {ratio} Invalid Interpretation Code [address] ALP enzyme act/vol 71 U/L Invalid Interpretation Code [address] ALT enzyme act/vol 12 U/L Low [address] AST enzyme act/vol 16 U/L Invalid Interpretation Code [address] Bilirubin mass conc 1.1 mg/dL Invalid Interpretation Code [address] Calcium mass conc 9.6 mg/dL Invalid Interpretation Code [address] Chloride molar conc 91 mmol/L Low [address] CO2 molar conc 24 mmol/L Invalid Interpretation Code [address] Creatinine mass conc 1.4 mg/dL High [address] GFR/1.73 sq M predicted among blacks MDRD vol rate/area (S/P/Bld) 49 mL/min/{1.73_m2} Invalid Interpretation Code ml/min/1.[address] GFR/1.73 sq M predicted among non-blacks MDRD vol rate/area (S/P/Bld) Average GFR for 60-69 years old = 85. Invalid Interpretation Code [address] Comment on above: Chronic Kidney disea se, GFR = <60. Kidney failure, GFR = <15. The GFR estimate is not adjusted for extreme body surface area or acute process, nor has it been validated for women or ethnic groups other than and . GFR/1.73 sq M predicted among non-blacks MDRD vol rate/area (S/P/Bld) 41 mL/min/{1.73_m2} Invalid Interpretation Code ml/min/1.[address] Glucose fasting mass conc 98 mg/dL Invalid Interpretation Code [address] Comment on above: NORMAL <100 mg/dL AL EDIABETES 101-126 mg/dL DIABETES 126 mg/dL or higher Potassium molar conc 3.7 mmol/L Invalid Interpretation Code [address] Protein mass conc 7.7 g/dL Invalid Interpretation Code [address] Sodium molar conc 131 mmol/L Low [address] Urea nitrogen mass conc 31 mg/dL [address] KETONES (BLOOD)on 05-03-2018 Beta hydroxybutyrate molar conc 0.[address] LACTATE, BLOODon 05-03-2018 Lactate molar conc 1.5 mmol/L Invalid Interpretation Code [address] LIPASEon 05-03-2018 Lipase enzyme act/vol 19 U/L Low 23 - 3 00 U/L [address] Otheron 05-03-2018 Interpretation and review of laboratory results Abnormal Invalid Interpretation Code [address] POCT GLUCOSEon 05-03-2018 Glucose mass conc 105 mg/dL Abnormal 70 - 99 mg/dL [facility] Work Phone: Interpretation and review of laboratory results Abnormal Invalid Interpretation Code [facility] Work Phone: TROPONINon 05-03-2018 Troponin I.cardiac mass conc ng/mL Invalid Interpretation Code 0 - 0.08 ng/mL [address] URINALYSIS, MACROon 05-03-20 18 Bilirubin Ql (U) Negative Invalid Interpretation Code NEGATIVE [address] Clarity Nom (U) CLEAR Invalid Interpretation Code CLEAR [address] Color Nom (U) YELLOW Invalid Interpretation Code YELLOW [address] Glucose Test strip mass conc (U) Negative Invalid Interpretation Code NEGATIVE mg/dl [address] Hemoglobin Test strip Ql (U) Negative Invalid Interpretation Code NEGATIVE [address] Interpretation and review of laboratory results Abnormal Invalid Interpretation Code [address] Ketones mass conc (U) Negative Invalid Interpretation Code NEGATIVE mg/dl [address] Leukocyte esterase Test strip Ql (U) Negative Invalid Interpretation Code NEGATIVE [address] Nitrite Test strip Ql (U) Negative Invalid Interpretation Code NEGATIVE [address] pH Test strip (U) 5.5 [pH] Invalid Interpretation Code [address] Protein Test strip Ql (U) Negative Invalid Interpretation Code NEGATIVE mg/dl [address] Specific gravity Relative Density (U) <1.[address] Urobilinogen mass conc (U) 0.2 mg/dl Invalid Interpretation Code 0.2 - 1 mg/dl [facility] Otheron 04-19-2018 Dell Willis 04/19/2018 1:55 PM 04/19/2018 EMG/NCV study performed on today's date. Full report to be scanned as soon as possible. Invalid Interpretation Code [facility] Work Phone: ED PHYSICIAN DICTATIONon ED PHYSICIAN DICTATION The required clin ica documentation could not be extracted for this report. Please refer to the [facility] Record or contact the HIM Department at [facility] ([phone]) to obtain a copy of this report. Normal [facility] ED PHYSICIAN DICTATION PDF Normal [facility] HISTORY & PHYSICALon 017 HISTORY & [facility]YSICAL [facility] History and PhysicalFARLETI WINTER JMRN: [id number] ACCTNUM: [id number] OF : 1955 SEX/AGE: F/61PATIENT [place]: [facility] [place] LOCATION: [id number] DATE: CHIEF COMPLAINT: Dizziness, lightheadedness, weakness, and sweatiness.HISTORY OF CHIEF COMPLAINT: This is a 61-year-old lady who came to the emergency room of [facility] on 12/17/2016 with the above chief complaint. She states that she was with hergranddaughter and became frightened because she started to feel weak, dizzy, lightheaded, and was sweaty.She was transported to [facility]. The patient reports that she had notfelt that bad since she had ketoacidosis when she was diagnosed with type 2 diabetes mellitus. She deniesnausea, vomiting, or diarrhea. Denies chest pain, numbness, tingling, or weakness.The patient has had a cough that is productive of yellowish sputum for approximately 2 weeks. She was recentlystarted on lisinopril and was not sure if that could be the cause of the cough. She does have a history ofsmoking and has used albuterol inhalers as needed in the past.The patient also recently had an allergic reaction to Protonix. She had a breakout of hives with burning skin anditchiness. She was placed on prednisone and has been taking that for a number of days.PAST MEDICAL HISTORY: Hypertension, bipolar disorder, chronic pain, and type 2 diabetes mellitus.PAST SURGICAL HISTORY: Cholecystectomy and hysterectomy.MEDICATIONS: Please see admitting MRF.ALLERGIES: Protonix and tomatoes.FAMILY MEDICAL HISTORY: Noncontributory to patient's current medical condition.SOCIAL HISTORY: The patient smokes almost 1 pack per day. Has done so off and on for over 40 years.She does not drink alcohol or use illicit substances.REVIEW OF SYSTEMS:The patient denies headache. She admits to dizziness and lightheadedness that has improved. She deniesblurred vision, double vision, ear pain, trouble hearing, sore throat, trouble swallowing, slurred speech, neckpain, swollen glands, chest pain, shortness of breath. Admits to cough that is productive of yellow sputum.Denies nausea, vomiting, diarrhea, constipation, burning with urination, or urinary frequency. Denies swollenjoints, intolerance to heat or cold, recent weight gain, or weight loss. Does have a history of bipolar disorder withdepression. Denies recent weight gain or weight loss.PHYSICAL EXAMINATION:VITAL SIGNS: As stated.GENERAL: Pleasant 61-year-old lady seated in bed, A and O x3. Speaking in full sentences. Appearscomfortable. No use of accessory muscles of respiration.HEENT: EOMI, PERRL. Conjunctivae clear. Oral mucosa is moist. Teeth in good repair.NECK: Supple. No lymphadenopathy or thyromegaly.HEART: Regular. Normal S1, normal S2.LUNGS: With rhonchi in the bases on inspiration. Slight wheeze in the bases on expiration. No rales noted.ABDOMEN: Obese, soft, nontender. Bowel sounds positive x4.NEUROLOGIC: Cranial nerves II through XII intact. Strength is equal in upper and lower extremities.SKIN: Multiple pinpoint grey hemangiomas over the abdomen. No distinct lesions. No open areas. Page [address] [place] [address] History and PhysicalPATIENT NAME: LETI DELA CRUZ Jonh#: [id number] ACCTNUM: [id number] DATA AND DIAGNOSTIC STUDIES: Chest x-ray shows no acute findings. CT of the headshows no definitive acute abnormality. Evidence of subacute chronic cerebromicrovascular disease. Lactic acid4.5. Hemogram: White count 17.3, hemoglobin 16.1, hematocrit 44.9, platelets 628. Metabolic panel: [id number], potassium 4.1, chloride 91, CO2 of 25, BUN 29, creatinine 0.85, glucose 132. Urinalysis: Essentially withinnormal limits.ASSESSMENT:1. Lactic acidosis.2. Symptomatic dehydration with dizziness and lightheadedness.3. Hyponatremia-cause unknown.4. Type 2 diabetes mellitus.5. Bipolar disorder.6. Leukocytosis, uncertain etiology.7. Bronchitis versus chronic obstructive pulmonary disease exacerbation.8. Thrombocytosis.PLAN:1. We will place the patient on medical floor for observation.2. Start IV normal saline at 100 mm/hour (started in ER). Recheck BMP in the morning.3. Recheck lactic acid in the morning.4. Check a Depakote level.5. Check blood sugars q.a.c. and h.s. and administer home insulin. Start aerosolized treatments and IV antibiotics.6. We will check hemogram daily.7. DVT prophylaxis. Signed: JAMEL CONDON DO 12/23/2016 09:59 Tamanna Condon DOKS:modlD: 12/18/2016 11:23:50T: 12/18/2016 12:20:35Job #: [id number] Page 2 of 1 Normal [facility] HISTORY & PHYSICAL PDF Normal [facility] Basic Panelon 12-19-2016 Anion gap 0 mmol/L Low 8-20 [facility] Comment on above: Performed By: #### L GFR ####[address] [address] BUN (urea nitrogen) 12 mg/dL Normal 7-25 [facility] Comment on above: Performed By: #### L GFR ####[address] [address] BUN/Creatinine Ratio 15 mg/mg Normal 10-20 [facility] Comment on above: Performed By: #### L GFR ####[address] [address] Calcium 8.5 mg/dL Normal 8.5-10.1 [facility] Comment on above: Performed By: #### L GFR ####[facility] [place], [place] [address] Chloride 106 mmol/L Normal 98-107 [facility] Comment on above: Performed By: #### L GFR ####[address] [address] CO2 32 mmol/L Normal 21-32 [facility] Comment on above: Performed By: #### L GFR ####[place] [address] Creatinine 0.81 mg/dL Normal 0.51-0.95 [facility] Comment on above: Performed By: #### L GFR ####[place] [address] Glucose mass conc 62 mg/dL Low 70-99 [facility] Comment on above: Performed By: #### L GFR ####[place] [address] Potassium molar conc 4.1 mmol/L Normal 3.5-5.1 [facility] Comment on above: Performed By: #### L GFR ####[place] [address] Sodium 134 mmol/L Low 136-145 [facility] Comment on above: Performed By: #### L GFR ####[place] [address] Hemogram/Diffon 12-19-2016 Erythrocytes (RBC) 3.63 mil/cmm Low 4.20-5.40 [facility] Comment on above: Performed By: #### L GFR ####[place] [address] Hematocrit (HCT) 32.4 % Low 37.0-47.0 [facility] Comment on above: Performed By: #### L GFR ####[address] [address] Hemoglobin mass conc (Bld) 11.2 g/dL Low 12.0-16.0 [facility] Comment on above: Performed By: #### L GFR ####[address] [address] MCH 30.9 pg Normal 27.0-31.0 [facility] Comment on above: Performed By: #### L GFR ####[address] [address] MCV 89.3 fL Normal 81.0-99.0 [facility] Comment on above: Performed By: #### L GFR ####[address] [address] Platelets 371 thou/cmm Normal 150-400 [facility] Comment on above: Performed By: #### L GFR ####[address] [address] Hemogram/Manual Diffon 12-19 Basophils Auto #/vol (Bld) 0.00 thou/cmm Normal 0.00-0.08 [facility] Comment on above: Performed By: #### L GFR ####[address] [address] Basophils/100 WBC Auto (Bld) 0.0 % Normal [facility] Comment on above: Performed By: #### L GFR ####[address] [address] Eosinophils 0.22 thou/cmm Normal 0.00-0.41 [facility] Comment on above: Performed By: #### L GFR ####[address] [address] Eosinophils/100 leukocytes 2.0 % Normal [facility] Comment on above: Performed By: #### L GFR ####[address] [address] Erythrocyte morphology Normal Normal [facility] Comment on above: Performed By: #### L GFR ####[address] [address] Lymphocytes 4.70 thou/cmm High 1.50-3.65 [facility] Comment on above: Performed By: #### L GFR ####[address] [address] Lymphocytes/100 leukocytes 42.0 % Normal [facility] Comment on above: Performed By: #### L GFR ####[place] [address] Metamyelocytes 1.0 % Normal [facility] Comment on above: Performed By: #### L GFR ####[place] [address] Monocytes 0.22 thou/cmm Normal 0.20-1.00 [facility] Comment on above: Performed By: #### L GFR ####[place] [address] Monocytes/100 leukocytes 2.0 % Normal [facility] Comment on above: Performed By: #### L GFR ####[place] [address] Platelets Normal Normal [facility] Comment on above: Performed By: #### L GFR ####[place] [address] Seg Neutrophil 53.0 % Normal [facility] Comment on above: Performed By: #### L GFR ####[place] [address] Seg. Neut.# 6.06 thou/cmm High 3.00-5.67 [facility] Comment on above: Performed By: #### L GFR ####[place] [address] Erythrocyte distribution width Auto Ratio (RBC) 13.2 % Normal 11.5-15.9 [facility] Comment on above: Performed By: #### L GFR ####[place] [address] MCHC mass conc (RBC) 34.6 % Normal 32.0-36.0 [facility] Comment on above: Performed By: #### L GFR ####[place] [address] Platelet mean volume (PMV) 8.3 fL Normal 7.1-10.5 [facility] Comment on above: Performed By: #### L GFR ####[address] [address] WBC (Leukocytes) 11.2 thou/cmm High 4.8-10.8 [facility] Comment on above: Performed By: #### L GFR ####[address] [address] Lactic acidon 12-19-2016 Lactate 0.9 mmol/L Normal 0.4-2.0 [facility] Comment on above: Performed By: #### L TRP ####[place] [id number] MDRD eGFRon 12-19-2016 eGFR (non-black) mL/min/{1.73_m2} Normal >60mL/m in/ 1.73m2 [facility] Comment on above: Result Comment: If t he patient is , multiply the result by 1.210. Performed By: #### L TRP ####[place] [address] Comprehensive Panelon 2016 AST-SGOT Blood 24 U/L Normal 15-37 [facility] Comment on above: Performed By: #### L P8 ####[place] [address] Albumin 3.1 g/dL Low 3.4-5.0 [facility] Comment on above: Performed By: #### L P8 ####[address] [address] Alkaline phosphatase (ALP) 59 U/L Normal 46-116 [facility] Comment on above: Performed By: #### L P8 ####[place] [address] ALT-SGPT Blood 42 U/L Normal 12-78 [facility] Comment on above: Performed By: #### L P8 ####[place] [address] Anion gap 10 mmol/L Normal 8-20 [facility] Comment on above: Performed By: #### L P8 ####[place] [address] Bilirubin Ql (U) 0.2 mg/dL Normal 0.2-1.0 [facility] Comment on above: Performed By: #### L P8 ####[facility] [place], [place] [address] BUN (urea nitrogen) 25 mg/dL Normal 7-25 [facility] Comment on above: Performed By: #### L P8 ####[facility] [place], [place] [address] BUN/Creatinine Ratio 33 mg/mg High 10-20 [facility] Comment on above: Performed By: #### L P8 ####[address] [address] Calcium 8.6 mg/dL Normal 8.5-10.1 [facility] Comment on above: Performed By: #### L P8 ####[address] [address] Chloride 97 mmol/L Low 98-107 [facility] Comment on above: Performed By: #### L P8 ####[address] [address] CO2 29 mmol/L Normal 21-32 [facility] Comment on above: Performed By: #### L P8 ####[address] [address] Creatinine 0.77 mg/dL Normal 0.51-0.95 [facility] Comment on above: Performed By: #### L P8 ####[address] [address] Glucose mass conc 153 mg/dL High 70-99 [facility] Comment on above: Performed By: #### L P8 ####[address] [address] Potassium molar conc 3.6 mmol/L Normal 3.5-5.1 [facility] Comment on above: Performed By: #### L P8 ####[address] [address] Protein 6.2 g/dL Low 6.4-8.2 [facility] Comment on above: Performed By: #### L P8 ####[place] [id number] Sodium 132 mmol/L Low 136-145 [facility] Comment on above: Performed By: #### L P8 ####[facility] [place], [place] [address] Glucose Bloodon 12-18-2016 Glucose mass conc 65 mg/dL Low 70-99 [facility] Comment on above: Performed By: #### L GLU ####[facility] [place], [place] [address] Glucose Meteron 12-18-2016 Glucose mass conc 113 mg/dL High 70-99 [facility] Comment on above: Result Comment: RN N OTIFIEDTesting performed at [address] [address] Performed By: #### L GFR ####[address] [address] Glucose mass conc 147 mg/dL High 70-99 [facility] Comment on above: Result Comment: RN N OTIFIEDTesting performed at [address] [address] Performed By: #### L GFR ####[address] [address] Glucose mass conc 213 mg/dL High 70-99 [facility] Comment on above: Result Comment: RN N OTIFIEDTesting performed at [address] [address] Performed By: #### L GFR ####[address] [address] Glucose mass conc 194 mg/dL High 70-99 [facility] Comment on above: Result Comment: Test ing performed at [address] [address] Performed By: #### L GFR ####[address] [address] Glucose mass conc 68 mg/dL Low 70-99 [facility] Comment on above: Result Comment: RN N OTIFIEDTesting performed at [address] [address] Performed By: #### L P8 ####[address] [address] Glucose mass conc 180 mg/dL High 70-99 [facility] Comment on above: Result Comment: Test ing performed at [address] [address] Performed By: #### L P8 ####[address] [address] Glucose mass conc 70 mg/dL Normal 70-99 [facility] Comment on above: Result Comment: Test ing performed at [address] [address] Performed By: #### L P8 ####[address] [address] Glucose mass conc 111 mg/dL High 70-99 [facility] Comment on above: Result Comment: Test ing performed at [address] [address] Performed By: #### L GFR ####[address] [address] Glucose mass conc 76 mg/dL Normal 70-99 [facility] Comment on above: Result Comment: Test ing performed at [address] [address] Performed By: #### L P8 ####[address] [address] Glucose mass conc 56 mg/dL Low 70-99 [facility] Comment on above: Result Comment: RN N OTIFIEDTesting performed at [address] [address] Performed By: #### L P8 ####[address] [address] Glucose mass conc mg/dL Low 70-99 [facility] Comment on above: Result Comment: WU N OTIFIEDMD NOTIFIEDTesting performed at [address] [address] Performed By: #### L P8 ####[address] [address] Glucose mass conc 94 mg/dL Normal 70-99 [facility] Comment on above: Result Comment: Test ing performed at [address] [address] Performed By: #### L P8 ####[address] [address] Hemogram/Manual Diffon 12-18 Basophils Auto #/vol (Bld) 0.00 thou/cmm Normal 0.00-0.08 [facility] Comment on above: Performed By: #### L MCBD ####[address] [address] Basophils/100 WBC Auto (Bld) 0.0 % Normal [facility] Comment on above: Performed By: #### L MCBD ####[address] [address] Eosinophils 0.55 thou/cmm High 0.00-0.41 [facility] Comment on above: Performed By: #### L MCBD ####[address] [address] Eosinophils/100 leukocytes 3.0 % Normal [facility] Comment on above: Performed By: #### L MCBD ####[address] [address] Erythrocyte morphology Normal Normal [facility] Comment on above: Performed By: #### L MCBD ####[address] [address] Lymphocytes 5.49 thou/cmm High 1.50-3.65 [facility] Comment on above: Performed By: #### L MCBD ####[address] [address] Lymphocytes/100 leukocytes 30.0 % Normal [facility] Comment on above: Performed By: #### L MCBD ####[address] [address] Metamyelocytes 2.0 % Normal [facility] Comment on above: Performed By: #### L MCBD ####[address] [address] Monocytes 0.73 thou/cmm Normal 0.20-1.00 [facility] Comment on above: Performed By: #### L MCBD ####[address] [address] Monocytes/100 leukocytes 4.0 % Normal [facility] Comment on above: Performed By: #### L MCBD ####[place] [address] Myelocytes 1.0 % Normal [facility] Comment on above: Performed By: #### L MCBD ####[place] [address] Platelets High Normal [facility] Comment on above: Performed By: #### L MCBD ####[place] [address] Seg Neutrophil 60.0 % Normal [facility] Comment on above: Performed By: #### L MCBD ####[place] [address] Seg. Neut.# 11.53 thou/cmm High 3.00-5.67 [facility] Comment on above: Performed By: #### L MCBD ####[place] [address] WBC Morphology see below Normal [facility] Comment on above: Result Comment: Smud ge cells present Performed By: #### L MCBD ####[place] [address] Erythrocyte distribution width Auto Ratio (RBC) 13.2 % Normal 11.5-15.9 [facility] Comment on above: Performed By: #### L MCBD ####[place] [address] Erythrocytes (RBC) 4.00 mil/cmm Low 4.20-5.40 [facility] Comment on above: Performed By: #### L MCBD ####[place] [address] Hematocrit (HCT) 35.6 % Low 37.0-47.0 [facility] Comment on above: Performed By: #### L MCBD ####[place] [address] Hemoglobin mass conc (Bld) 12.5 g/dL Normal 12.0-16.0 [facility] Comment on above: Performed By: #### L MCBD ####[place] [address] MCH 31.3 pg High 27.0-31.0 [facility] Comment on above: Performed By: #### L MCBD ####[place] [address] MCHC mass conc (RBC) 35.1 % Normal 32.0-36.0 [facility] Comment on above: Performed By: #### L MCBD ####[place] [address] MCV 89.0 fL Normal 81.0-99.0 [facility] Comment on above: Performed By: #### L MCBD ####[place] [address] Platelet mean volume (PMV) 8.6 fL Normal 7.1-10.5 [facility] Comment on above: Performed By: #### L MCBD ####[place] [address] Platelets 449 thou/cmm High 150-400 [facility] Comment on above: Performed By: #### L MCBD ####[place] [address] WBC (Leukocytes) 18.3 thou/cmm High 4.8-10.8 [facility] Comment on above: Performed By: #### L MCBD ####[place] [address] Lactic acidon 12-18-2016 Lactate 1.6 mmol/L Normal 0.4-2.0 [facility] Comment on above: Performed By: #### L P8 ####[place] [address] MDRD eGFRon 12-18-2016 eGFR (non-black) mL/min/{1.73_m2} Normal >60mL/m in/ 1.73m2 [facility] Comment on above: Result Comment: If t he patient is , multiply the result by 1.210. Performed By: #### L P8 ####[place] [address] Valproic Acid,[place].on 2016 Valproic Acid,[place]. 17 mg/L Low 50-100 [facility] Comment on above: Performed By: #### L GFR ####[facility] [place], [place] [address] Basic Panelon 12-17-2016 Anion gap 17 mmol/L Normal 8-20 [facility] Comment on above: Performed By: #### L P8 ####[facility] [place], [place] [address] BUN (urea nitrogen) 29 mg/dL High 7-25 [facility] Comment on above: Performed By: #### L P8 ####[address] [address] BUN/Creatinine Ratio 34 mg/mg High 10-20 [facility] Comment on above: Performed By: #### L P8 ####[address] [address] Calcium 10.8 mg/dL High 8.5-10.1 [facility] Comment on above: Performed By: #### L P8 ####[address] [address] Chloride 91 mmol/L Low 98-107 [facility] Comment on above: Performed By: #### L P8 ####[address] [address] CO2 25 mmol/L Normal 21-32 [facility] Comment on above: Performed By: #### L P8 ####[place] [address] Creatinine 0.85 mg/dL Normal 0.51-0.95 [facility] Comment on above: Performed By: #### L P8 ####[address] [address] Glucose mass conc 132 mg/dL High 70-99 [facility] Comment on above: Performed By: #### L P8 ####[address] [address] Potassium molar conc 4.1 mmol/L Normal 3.5-5.1 [facility] Comment on above: Performed By: #### L P8 ####[facility] [place], [place] [address] Sodium 129 mmol/L Low 136-145 [facility] Comment on above: Performed By: #### L P8 ####[facility] [place], [place] [address] CHEST 2 VIEWSon 12-17-2016 CHEST 2 VIEWS Performed at [facility] APPROVED BY: Nadeem Hoffman MD EXAMINATION: CHEST RADIOGRAPH (2 VIEW FRONTAL & LATERAL) Clinical History: Dizziness. Weakness. Hyperglycemia.M: [id number]: None available. RESULT: Lines, tubes, and devices: None. Lungs and pleura: No consolidation. No pleural effusion. Cardiomediastinal silhouette: Normal cardiac and mediastinal silhouette. Other: There is a cluster of ossific structures in profile with the right humeral head measuring 14 mm and less in size. Findings suggest the presence of loose bodies. There is a cluster of surgical clips within the upper abdomen. IMPRESSION: No acute radiographic abnormality. Normal [facility] CT HEAD W/O CONTRASTon 12-17 CT HEAD W/O CONTRAST Performed at [facility] APPROVED BY: Sandy Stewart MD BRAIN CT WITHOUT CONTRAST ENHANCEMENT Serial transverse images of the brain were obtained without contrast material. The study was performed within 24 hours of arrival to evaluate dizziness. CT Dose-Length Product (DLP): 772 mGy*cmCT Dose Reduction Employed: 5 Serial images demonstrate foci of decreased attenuation involving the periventricular, deep, and subcortical white matter of the cerebral hemispheres. The overall size of the ventricular system is within normal limits. There is no definite evidence of acute infarction, hemorrhage, mass lesion, or midline shift. IMPRESSION: No definitive acute abnormality as described above. There is evidence of subacute/chronic cerebral microvascular disease. Normal [facility] Hemogram/Manual Diffon 12-17 Basophils Auto #/vol (Bld) 0.00 thou/cmm Normal 0.00-0.08 [facility] Comment on above: Performed By: #### L MCBD ####[address] [address] Basophils/100 WBC Auto (Bld) 0.0 % Normal [facility] Comment on above: Performed By: #### L MCBD ####[facility] [place], [place] [address] Eosinophils 0.00 thou/cmm Normal 0.00-0.41 [facility] Comment on above: Performed By: #### L MCBD ####[facility] [place], [place] [address] Eosinophils/100 leukocytes 0.0 % Normal [facility] Comment on above: Performed By: #### L MCBD ####[address] [address] Erythrocyte morphology Normal Normal [facility] Comment on above: Performed By: #### L MCBD ####[address] [address] Lymphocytes 4.33 thou/cmm High 1.50-3.65 [facility] Comment on above: Performed By: #### L MCBD ####[address] [address] Lymphocytes/100 leukocytes 25.0 % Normal [facility] Comment on above: Performed By: #### L MCBD ####[address] [address] Monocytes 0.35 thou/cmm Normal 0.20-1.00 [facility] Comment on above: Performed By: #### L MCBD ####[address] [address] Monocytes/100 leukocytes 2.0 % Normal [facility] Comment on above: Performed By: #### L MCBD ####[address] [address] Platelets High Normal [facility] Comment on above: Performed By: #### L MCBD ####[address] [address] Seg Neutrophil 73.0 % Normal [facility] Comment on above: Performed By: #### L MCBD ####[address] [address] Seg. Neut.# 12.62 thou/cmm High 3.00-5.67 [facility] Comment on above: Performed By: #### L MCBD ####[facility] [place] [address] Erythrocyte distribution width Auto Ratio (RBC) 13.1 % Normal 11.5-15.9 [facility] Comment on above: Performed By: #### L MCBD ####[place] [address] Erythrocytes (RBC) 5.28 mil/cmm Normal 4.20-5.40 [facility] Comment on above: Performed By: #### L MCBD ####[place] [address] Hematocrit (HCT) 44.9 % Normal 37.0-47.0 [facility] Comment on above: Performed By: #### L MCBD ####[place] [address] Hemoglobin mass conc (Bld) 16.1 g/dL High 12.0-16.0 [facility] Comment on above: Performed By: #### L MCBD ####[place] [address] MCH 30.5 pg Normal 27.0-31.0 [facility] Comment on above: Performed By: #### L MCBD ####[place] [address] MCHC mass conc (RBC) 35.9 % Normal 32.0-36.0 [facility] Comment on above: Performed By: #### L MCBD ####[place] [address] MCV 85.0 fL Normal 81.0-99.0 [facility] Comment on above: Performed By: #### L MCBD ####[place] [address] Platelet mean volume (PMV) 8.9 fL Normal 7.1-10.5 [facility] Comment on above: Performed By: #### L MCBD ####[place] [address] Platelets 628 thou/cmm High 150-400 [facility] Comment on above: Performed By: #### L MCBD ####[address] [address] WBC (Leukocytes) 17.3 thou/cmm High 4.8-10.8 [facility] Comment on above: Performed By: #### L MCBD ####[place] [address] Lactic acidon 12-17-2016 Lactate 4.5 mmol/L Critically high 0.4-2.0 [facility] Comment on above: Performed By: #### L LA ####[place] [address] MDRD eGFRon 12-17-2016 eGFR (non-black) mL/min/{1.73_m2} Normal >60mL/m in/ 1.73m2 [facility] Comment on above: Result Comment: If t he patient is , multiply the result by 1.210. Performed By: #### L GFR ####[place] [address] Troponin Ion 12-17-2016 Troponin I.cardiac mass conc ng/mL Normal <=0.07 [facility] Comment on above: Performed By: #### L TRP ####[place] [address] Urinalysis Routineon 017 Bilirubin Urine Negative Normal Negative [facility] Comment on above: Performed By: #### L URIN ####[place] [address] Ep Cells Urine 6-12 Abnormal 0-5 [facility] Comment on above: Performed By: #### L URIN ####[place] [address] Hemoglobin,Urine Negative Normal Negative [facility] Comment on above: Performed By: #### L URIN ####[place] [address] Ketone Urine TRACE Abnormal Negative [facility] Comment on above: Performed By: #### L URIN ####[place] [address] Nitrites Urine Negative Normal Negative [facility] Comment on above: Performed By: #### L URIN ####[facility] [place] [address] Protein Urine 3+ Abnormal Negative [facility] Comment on above: Performed By: #### L URIN ####[place] [address] Specific [place], Ur 1.020 Normal 1.005-1 .03 0 [facility] Comment on above: Performed By: #### L URIN ####[place] [address] Urine, appearance 1+ (HAZY) Normal [facility] Comment on above: Performed By: #### L URIN ####[place] [address] Urine, bacteria in sediment FEW Abnormal None [facility] Comment on above: Performed By: #### L URIN ####[place] [address] Urine, color YELLOW Normal [facility] Comment on above: Performed By: #### L URIN ####[place] [address] Urine, erythrocytes in sediment by area NONE Normal 0-3 [facility] Comment on above: Performed By: #### L URIN ####[place] [address] Urine, glucose presence 1+ Abnormal Negative [facility] Comment on above: Performed By: #### L URIN ####[place] [address] Urine, leukocytes in sedmiment NONE Normal 0-5 [facility] Comment on above: Performed By: #### L URIN ####[place] [address] Urine, pH 6.0 [pH] Normal 5.0-8.0 [facility] Comment on above: Performed By: #### L URIN ####[place] [address] Urobilinogen,Ur 0.2 EU/dL Normal 0.0-1.0 [facility] Comment on above: Performed By: #### L URIN ####[facility] [place], [place] [address] WBC (Leukocytes) Negative Normal Negative [facility] Comment on above: Performed By: #### L URIN ####[facility] [place], [place] [address] No Panel Information Enteric Bacteriology [facility] Work Phone: SARS-CoV-2 & FLU Antigen (Rapid) [facility] Work Phone: Vital Signs Date Time Vital Sign Value Performing Clinician Facility 09-17-2024 22:26-0400 Body temperature 98 [degF] Dr. Denise Uribe MD Work Phone: [facility] 09-17-2024 22:26-0400 Diastolic blood pressure 75 mm[Hg] Dr. Denise Uribe MD Work Phone: [facility] 09-17-2024 22:26-0400 Heart rate 76 /min Dr. Denise Uribe MD Work Phone: [facility] 09-17-2024 22:26-0400 Respiratory rate 16 /min Dr. Denise Uribe MD Work Phone: [facility] 09-17-2024 22:26-0400 SaO2% (BldA) [Mass fraction] 95 % Dr. Denise Uribe MD Work Phone: [facility] 09-17-2024 22:26-0400 Systolic blood pressure 126 mm[Hg] Dr. Denise Uribe MD Work Phone: [facility] 09-17-2024 19:02-0400 Body mass index (BMI) [Ratio] 30.9 kg/m2 Dr. Denise Uribe MD Work Phone: [facility] 09-17-2024 19:02-0400 Body weight 69.[address] Denise Uribe MD Work Phone: [facility] 09-17-2024 17:05-0400 Body height 149.[address] Denise Uribe MD Work Phone: [facility] 08-07-2024 14:55-0400 Body temperature 98.2 [degF] Dr. Denise Uribe MD Work Phone: [facility] 08-07-2024 14:55-0400 Diastolic blood pressure 52 mm[Hg] Dr. Denise Uribe MD Work Phone: [facility] 08-07-2024 14:55-0400 Heart rate 62 /min Dr. Denise Uribe MD Work Phone: [facility] 08-07-2024 14:55-0400 Respiratory rate 16 /min Dr. Denise Uribe MD Work Phone: [facility] 08-07-2024 14:55-0400 SaO2% (BldA) [Mass fraction] 96 % Dr. Denise Uribe MD Work Phone: [facility] 08-07-2024 14:55-0400 Systolic blood pressure 109 mm[Hg] Dr. Denise Uribe MD Work Phone: [facility] 08-07-2024 13:06-0400 Body height 149.[address] Denise Uribe MD Work Phone: [facility] 08-07-2024 13:06-0400 Body mass index (BMI) [Ratio] 32.3 kg/m2 Dr. Denise Uribe MD Work Phone: [facility] 08-07-2024 13:06-0400 Body weight 72.[address] Denise Uribe MD Work Phone: [facility] 07-24-2024 11:29-0500 Body temperature 98 [degF] Dr. Denise Uribe MD Work Phone: [facility] 07-24-2024 11:29-0500 Diastolic blood pressure 62 mm[Hg] Dr. Denise Uribe MD Work Phone: [facility] 07-24-2024 11:29-0500 Heart rate 64 /min Dr. Denise Uribe MD Work Phone: [facility] 07-24-2024 11:29-0500 Respiratory rate 18 /min Dr. Denise Uribe MD Work Phone: [facility] 07-24-2024 11:29-0500 SaO2% (BldA) [Mass fraction] 96 % Dr. Denise Uribe MD Work Phone: [facility] 07-24-2024 11:29-0500 Systolic blood pressure 112 mm[Hg] Dr. Denise Uribe MD Work Phone: [facility] 06-18-2024 12:42-0500 Body temperature 98.6 [degF] Dr. Denise Uribe MD Work Phone: [facility] 06-18-2024 12:42-0500 Diastolic blood pressure 80 mm[Hg] Dr. Denise Uribe MD Work Phone: [facility] 06-18-2024 12:42-0500 Heart rate 69 /min Dr. Denise Uribe MD Work Phone: [facility] 06-18-2024 12:42-0500 SaO2% (BldA) [Mass fraction] 96 % Dr. Denise Uribe MD Work Phone: [facility] 06-18-2024 12:42-0500 Systolic blood pressure 147 mm[Hg] Dr. Denise Uribe MD Work Phone: [facility] 06-18-2024 07:41-0500 Respiratory rate 16 /min Dr. Denise Uribe MD Work Phone: [facility] 06-18-2024 05:56-0500 Body mass index (BMI) [Ratio] 30.2 kg/m2 Dr. Denise Uribe MD Work Phone: [facility] 06-18-2024 05:56-0500 Body weight 67.[address] Denise Uribe MD Work Phone: [facility] 06-16-2024 20:39-0500 Body height 149.[address] Denise Uribe MD Work Phone: [facility] 05-22-2024 11:35-0500 Body temperature 97.6 [degF] Dr. Denise Uribe MD Work Phone: [facility] 05-22-2024 11:35-0500 Diastolic blood pressure 68 mm[Hg] Dr. Denise Uribe MD Work Phone: [facility] 05-22-2024 11:35-0500 Heart rate 60 /min Dr. Denise Uribe MD Work Phone: [facility] 05-22-2024 11:35-0500 Respiratory rate 16 /min Dr. Denise Uribe MD Work Phone: [facility] 05-22-2024 11:35-0500 SaO2% (BldA) [Mass fraction] 96 % Dr. Denise Uribe MD Work Phone: [facility] 05-22-2024 11:35-0500 Systolic blood pressure 150 mm[Hg] Dr. Denise Uribe MD Work Phone: [facility] 05-22-2024 05:37-0500 Body mass index (BMI) [Ratio] 31 kg/m2 Dr. Denise Uribe MD Work Phone: [facility] 05-22-2024 05:37-0500 Body weight 69.[address] Denise Uribe MD Work Phone: [facility] 05-18-2024 21:09-0500 Inhaled oxygen flow rate 2 L/min Dr. Denise Uribe MD Work Phone: [facility] 09-14-2023 14:18-0400 Body height 149.[address] Denise Uribe Work Phone: [facility] 09-14-2023 14:18-0400 Body temperature 97.3 [degF] Dr. Denise Uribe Work Phone: [facility] 09-14-2023 14:18-0400 Diastolic blood pressure 84 mm[Hg] Dr. Denise Uribe Work Phone: [facility] 09-14-2023 14:18-0400 Heart rate 102 /min Dr. Denise Uribe Work Phone: [facility] 09-14-2023 14:18-0400 Respiratory rate 16 /min Dr. Denise Uribe Work Phone: [facility] 09-14-2023 14:18-0400 Systolic blood pressure 144 mm[Hg] Dr. Denise Uribe Work Phone: [facility] 09-11-2023 13:44-0400 Body temperature 98.4 [degF] Dr. Denise Uribe Work Phone: [facility] 09-11-2023 13:44-0400 Diastolic blood pressure 69 mm[Hg] Dr. Denise Uribe Work Phone: [facility] 09-11-2023 13:44-0400 Heart rate 78 /min Dr. Denise Uribe Work Phone: [facility] 09-11-2023 13:44-0400 Respiratory rate 16 /min Dr. Denise Uribe Work Phone: [facility] 09-11-2023 13:44-0400 SaO2% (BldA) [Mass fraction] 97 % Dr. Denise Uribe Work Phone: [facility] 09-11-2023 13:44-0400 Systolic blood pressure 129 mm[Hg] Dr. Denise Uribe Work Phone: [facility] 09-11-2023 10:37-0400 Body height 150.[address] Denise Uribe Work Phone: [facility] 09-11-2023 10:37-0400 Body mass index (BMI) [Ratio] 33.2 kg/m2 Dr. Denise Uribe Work Phone: [facility] 09-11-2023 10:37-0400 Body weight 74.[address] Denise Uribe Work Phone: [facility] 08-18-2023 00:11-0400 Diastolic blood pressure 66 mm[Hg] Dr. Denise Uribe Work Phone: [facility] 08-18-2023 00:11-0400 Heart rate 66 /min Dr. Denise Uribe Work Phone: [facility] 08-18-2023 00:11-0400 SaO2% (BldA) [Mass fraction] 99 % Dr. Denise Uribe Work Phone: [facility] 08-18-2023 00:11-0400 Systolic blood pressure 108 mm[Hg] Dr. Denise Uribe Work Phone: [facility] 08-18-2023 00:09-0400 Body temperature 97.9 [degF] Dr. Denise Uribe Work Phone: [facility] 08-18-2023 00:09-0400 Body weight 72.[address] Denise Uribe Work Phone: [facility] 07-21-2023 12:51-0500 Body height 149.[address] Denise Uribe Work Phone: [facility] 07-21-2023 12:51-0500 Body mass index (BMI) [Ratio] 30.4 kg/m2 Dr. Denise Uribe Work Phone: [facility] 07-21-2023 12:51-0500 Body weight 68.[address] Denise Uribe Work Phone: [facility] 07-21-2023 12:51-0500 Diastolic blood pressure 81 mm[Hg] Dr. Denise Uribe Work Phone: [facility] 07-21-2023 12:51-0500 Heart rate 63 /min Dr. Denise Uribe Work Phone: [facility] 07-21-2023 12:51-0500 Respiratory rate 18 /min Dr. Denise Uribe Work Phone: [facility] 07-21-2023 12:51-0500 SaO2% (BldA) [Mass fraction] 99 % Dr. Denise Uribe Work Phone: [facility] 07-21-2023 12:51-0500 Systolic blood pressure 141 mm[Hg] Dr. Denise Uribe Work Phone: [facility] 07-11-2023 14:42-0500 Body height 149.86 cm NEURODIAGNOSTIC TECHNICIAN-C Devi Delgado NEURODIAGNOSTIC TECHNICIAN Work Phone: [facility] 07-11-2023 14:42-0500 Body mass index (BMI) [Ratio] 30.7 kg/m2 NEURODIAGNOSTIC TECHNICIAN-C Devi Delgado NEURODIAGNOSTIC TECHNICIAN Work Phone: [facility] 07-11-2023 14:42-0500 Body temperature 97.9 [degF] NEURODIAGNOSTIC TECHNICIAN-C Devi Delgado NEURODIAGNOSTIC TECHNICIAN Work Phone: [facility] 07-11-2023 14:42-0500 Body weight 68.94 kg NEURODIAGNOSTIC TECHNICIAN-C Devi Delgado NEURODIAGNOSTIC TECHNICIAN Work Phone: [facility] 07-11-2023 14:42-0500 Diastolic blood pressure 80 mm[Hg] NEURODIAGNOSTIC TECHNICIAN-C Devi Delgado NEURODIAGNOSTIC TECHNICIAN Work Phone: [facility] 07-11-2023 14:42-0500 Heart rate 72 /min NEURODIAGNOSTIC TECHNICIAN-C Devi Delgado NEURODIAGNOSTIC TECHNICIAN Work Phone: [facility] 07-11-2023 14:42-0500 Respiratory rate 18 /min NEURODIAGNOSTIC TECHNICIAN-C Devi Delgado NEURODIAGNOSTIC TECHNICIAN Work Phone: [facility] 07-11-2023 14:42-0500 SaO2% (BldA) [Mass fraction] 98 % NEURODIAGNOSTIC TECHNICIAN-C Devi Delgado NEURODIAGNOSTIC TECHNICIAN Work Phone: [facility] 07-11-2023 14:42-0500 Systolic blood pressure 124 mm[Hg] NEURODIAGNOSTIC TECHNICIAN-C Devi Delgado NEURODIAGNOSTIC TECHNICIAN Work Phone: [facility] 07-07-2023 15:13-0500 Body mass index (BMI) [Ratio] 30.4 kg/m2 NEURODIAGNOSTIC TECHNICIAN-C Devi Delgado NEURODIAGNOSTIC TECHNICIAN Work Phone: [facility] 07-07-2023 15:13-0500 Body weight 68.49 kg NEURODIAGNOSTIC TECHNICIAN-C Devi Delgado NEURODIAGNOSTIC TECHNICIAN Work Phone: [facility] 07-07-2023 15:13-0500 Diastolic blood pressure 63 mm[Hg] NEURODIAGNOSTIC TECHNICIAN-C Devi Delgado NEURODIAGNOSTIC TECHNICIAN Work Phone: [facility] 07-07-2023 15:13-0500 Heart rate 68 /min NEURODIAGNOSTIC TECHNICIAN-C Devi Delgado NEURODIAGNOSTIC TECHNICIAN Work Phone: [facility] 07-07-2023 15:13-0500 Respiratory rate 20 /min NEURODIAGNOSTIC TECHNICIAN-C Devi Delgado NEURODIAGNOSTIC TECHNICIAN Work Phone: [facility] 07-07-2023 15:13-0500 SaO2% (BldA) [Mass fraction] 94 % NEURODIAGNOSTIC TECHNICIAN-C Devi Delgado NEURODIAGNOSTIC TECHNICIAN Work Phone: [facility] 07-07-2023 15:13-0500 Systolic blood pressure 120 mm[Hg] NEURODIAGNOSTIC TECHNICIAN-C Devi Delgado NEURODIAGNOSTIC TECHNICIAN Work Phone: [facility] 07-07-2023 14:04-0500 Body mass index (BMI) [Ratio] 30.5 kg/m2 NEURODIAGNOSTIC TECHNICIAN-C Devi Delgado NEURODIAGNOSTIC TECHNICIAN Work Phone: [facility] 07-07-2023 14:04-0500 Body temperature 98.7 [degF] NEURODIAGNOSTIC TECHNICIAN-C Devi Delgado NEURODIAGNOSTIC TECHNICIAN Work Phone: [facility] 07-07-2023 14:04-0500 Body weight 68.66 kg NEURODIAGNOSTIC TECHNICIAN-C Devi Delgado NEURODIAGNOSTIC TECHNICIAN Work Phone: [facility] 07-07-2023 14:04-0500 Diastolic blood pressure 66 mm[Hg] NEURODIAGNOSTIC TECHNICIAN-C Dvei Delgado NEURODIAGNOSTIC TECHNICIAN Work Phone: [facility] 07-07-2023 14:04-0500 Heart rate 70 /min NEURODIAGNOSTIC TECHNICIAN-C Devi Delgado NEURODIAGNOSTIC TECHNICIAN Work Phone: [facility] 07-07-2023 14:04-0500 Respiratory rate 16 /min NEURODIAGNOSTIC TECHNICIAN-C Devi Delgado NEURODIAGNOSTIC TECHNICIAN Work Phone: [facility] 07-07-2023 14:04-0500 SaO2% (BldA) [Mass fraction] 97 % NEURODIAGNOSTIC TECHNICIAN-C Devi Delgado NEURODIAGNOSTIC TECHNICIAN Work Phone: [facility] 07-07-2023 14:04-0500 Systolic blood pressure 110 mm[Hg] NEURODIAGNOSTIC TECHNICIAN-C Devi Delgado NEURODIAGNOSTIC TECHNICIAN Work Phone: [facility] 05-08-2023 14:56-0500 Body mass index (BMI) [Ratio] 30.3 kg/m2 NEURODIAGNOSTIC TECHNICIAN-C Devi Delgado NEURODIAGNOSTIC TECHNICIAN Work Phone: [facility] 05-08-2023 14:56-0500 Body temperature 98.7 [degF] NEURODIAGNOSTIC TECHNICIAN-C Devi Delgado NEURODIAGNOSTIC TECHNICIAN Work Phone: [facility] 05-08-2023 14:56-0500 Body weight 68.15 kg NEURODIAGNOSTIC TECHNICIAN-C Devi Delgado NEURODIAGNOSTIC TECHNICIAN Work Phone: [facility] 05-08-2023 14:56-0500 Diastolic blood pressure 76 mm[Hg] NEURODIAGNOSTIC TECHNICIAN-C Devi Delgado NEURODIAGNOSTIC TECHNICIAN Work Phone: [facility] 05-08-2023 14:56-0500 Heart rate 70 /min NEURODIAGNOSTIC TECHNICIAN-C Devi Delgado NEURODIAGNOSTIC TECHNICIAN Work Phone: [facility] 05-08-2023 14:56-0500 Respiratory rate 16 /min NEURODIAGNOSTIC TECHNICIAN-C Devi Delgado NEURODIAGNOSTIC TECHNICIAN Work Phone: [facility] 05-08-2023 14:56-0500 SaO2% (BldA) [Mass fraction] 97 % NEURODIAGNOSTIC TECHNICIAN-C Devi Delgado NEURODIAGNOSTIC TECHNICIAN Work Phone: [facility] 05-08-2023 14:56-0500 Systolic blood pressure 146 mm[Hg] NEURODIAGNOSTIC TECHNICIAN-C Devi Delgado NEURODIAGNOSTIC TECHNICIAN Work Phone: [facility] 03-31-2023 14:55-0500 Body height 149.86 cm NEURODIAGNOSTIC TECHNICIAN-C Devi Delgado NEURODIAGNOSTIC TECHNICIAN Work Phone: [facility] 03-31-2023 14:55-0500 Body mass index (BMI) [Ratio] 29 kg/m2 NEURODIAGNOSTIC TECHNICIAN-C Devi Delgado NEURODIAGNOSTIC TECHNICIAN Work Phone: [facility] 03-31-2023 14:55-0500 Body temperature 98.3 [degF] NEURODIAGNOSTIC TECHNICIAN-C Devi Delgado NEURODIAGNOSTIC TECHNICIAN Work Phone: [facility] 03-31-2023 14:55-0500 Body weight 65.31 kg NEURODIAGNOSTIC TECHNICIAN-C Devi Delgado NEURODIAGNOSTIC TECHNICIAN Work Phone: [facility] 03-31-2023 14:55-0500 Diastolic blood pressure 74 mm[Hg] NEURODIAGNOSTIC TECHNICIAN-C Devi Delgado NEURODIAGNOSTIC TECHNICIAN Work Phone: [facility] 03-31-2023 14:55-0500 Heart rate 76 /min NEURODIAGNOSTIC TECHNICIAN-C Devi Delgado NEURODIAGNOSTIC TECHNICIAN Work Phone: [facility] 03-31-2023 14:55-0500 Respiratory rate 16 /min NEURODIAGNOSTIC TECHNICIAN-C Devi Delgado NEURODIAGNOSTIC TECHNICIAN Work Phone: [facility] 03-31-2023 14:55-0500 SaO2% (BldA) [Mass fraction] 98 % NEURODIAGNOSTIC TECHNICIAN-C Devi Delgado NEURODIAGNOSTIC TECHNICIAN Work Phone: [facility] 03-31-2023 14:55-0500 Systolic blood pressure 140 mm[Hg] NEURODIAGNOSTIC TECHNICIAN-C Devi Delgado NEURODIAGNOSTIC TECHNICIAN Work Phone: [facility] 03-21-2023 14:54-0400 Body mass index (BMI) [Ratio] 29.2 kg/m2 NEURODIAGNOSTIC TECHNICIAN-C Devi Delgado NEURODIAGNOSTIC TECHNICIAN Work Phone: [facility] 03-21-2023 14:54-0400 Body weight 65.77 kg NEURODIAGNOSTIC TECHNICIAN-C Devi Delgado NEURODIAGNOSTIC TECHNICIAN Work Phone: [facility] 03-21-2023 14:54-0400 Diastolic blood pressure 70 mm[Hg] NEURODIAGNOSTIC TECHNICIAN-C Devi Delgado NEURODIAGNOSTIC TECHNICIAN Work Phone: [facility] 03-21-2023 14:54-0400 Heart rate 72 /min NEURODIAGNOSTIC TECHNICIAN-C Devi Delgado NEURODIAGNOSTIC TECHNICIAN Work Phone: [facility] 03-21-2023 14:54-0400 Systolic blood pressure 112 mm[Hg] NEURODIAGNOSTIC TECHNICIAN-C Devi Delgado NEURODIAGNOSTIC TECHNICIAN Work Phone: [facility] 02-16-2023 13:52-0400 Body mass index (BMI) [Ratio] 28.8 kg/m2 NEURODIAGNOSTIC TECHNICIAN-C Devi Delgado NEURODIAGNOSTIC TECHNICIAN Work Phone: [facility] 02-16-2023 13:52-0400 Body temperature 96.8 [degF] NEURODIAGNOSTIC TECHNICIAN-C Devi Delgado NEURODIAGNOSTIC TECHNICIAN Work Phone: [facility] 02-16-2023 13:52-0400 Body weight 64.63 kg NEURODIAGNOSTIC TECHNICIAN-C Devi Delgado NEURODIAGNOSTIC TECHNICIAN Work Phone: [facility] 02-16-2023 13:52-0400 Diastolic blood pressure 74 mm[Hg] NEURODIAGNOSTIC TECHNICIAN-C Devi Delgado NEURODIAGNOSTIC TECHNICIAN Work Phone: [facility] 02-16-2023 13:52-0400 Heart rate 75 /min NEURODIAGNOSTIC TECHNICIAN-C Devi Delgado NEURODIAGNOSTIC TECHNICIAN Work Phone: [facility] 02-16-2023 13:52-0400 Respiratory rate 18 /min NEURODIAGNOSTIC TECHNICIAN-C Devi Delgado NEURODIAGNOSTIC TECHNICIAN Work Phone: [facility] 02-16-2023 13:52-0400 SaO2% (BldA) [Mass fraction] 99 % NEURODIAGNOSTIC TECHNICIAN-C Devi Delgado NEURODIAGNOSTIC TECHNICIAN Work Phone: [facility] 02-16-2023 13:52-0400 Systolic blood pressure 138 mm[Hg] NEURODIAGNOSTIC TECHNICIAN-C Devi Delgado NEURODIAGNOSTIC TECHNICIAN Work Phone: [facility] 01-24-2023 16:11-0400 Diastolic blood pressure 86 mm[Hg] NEURODIAGNOSTIC TECHNICIAN-C Devi Delgado NEURODIAGNOSTIC TECHNICIAN Work Phone: [facility] 01-24-2023 16:11-0400 Systolic blood pressure 136 mm[Hg] NEURODIAGNOSTIC TECHNICIAN-C Devi Delgado NEURODIAGNOSTIC TECHNICIAN Work Phone: [facility] 01-24-2023 14:05-0400 Body mass index (BMI) [Ratio] 28.3 kg/m2 NEURODIAGNOSTIC TECHNICIAN-C Devi Delgado NEURODIAGNOSTIC TECHNICIAN Work Phone: [facility] 01-24-2023 14:05-0400 Body temperature 96.1 [degF] NEURODIAGNOSTIC TECHNICIAN-C Devi Delgado NEURODIAGNOSTIC TECHNICIAN Work Phone: [facility] 01-24-2023 14:05-0400 Body weight 63.61 kg NEURODIAGNOSTIC TECHNICIAN-C Devi Delgado NEURODIAGNOSTIC TECHNICIAN Work Phone: [facility] 01-24-2023 14:05-0400 Heart rate 74 /min NEURODIAGNOSTIC TECHNICIAN-C Devi Delgado NEURODIAGNOSTIC TECHNICIAN Work Phone: [facility] 01-24-2023 14:05-0400 Respiratory rate 18 /min NEURODIAGNOSTIC TECHNICIAN-C Devi Delgado NEURODIAGNOSTIC TECHNICIAN Work Phone: [facility] 01-24-2023 14:05-0400 SaO2% (BldA) [Mass fraction] 98 % NEURODIAGNOSTIC TECHNICIAN-C Devi Delgado NEURODIAGNOSTIC TECHNICIAN Work Phone: [facility] 11-17-2022 15:20-0400 Body height 149.[address] Pat Bennett Work Phone: [facility] 11-17-2022 15:20-0400 Body mass index (BMI) [Ratio] 27.8 kg/m2 Dr. Pat Bennett Work Phone: [facility] 11-17-2022 15:20-0400 Body temperature 97.8 [degF] Dr. Pat Bennett Work Phone: [facility] 11-17-2022 15:20-0400 Body weight 62.[address] Pat Bennett Work Phone: [facility] 11-17-2022 15:20-0400 Diastolic blood pressure 64 mm[Hg] Dr. Pat Bennett Work Phone: [facility] 11-17-2022 15:20-0400 Heart rate 44 /min Dr. Pat Bennett Work Phone: [facility] 11-17-2022 15:20-0400 Respiratory rate 16 /min Dr. Pat Bennett Work Phone: [facility] 11-17-2022 15:20-0400 SaO2% (BldA) [Mass fraction] 99 % Dr. Pat Bennett Work Phone: [facility] 11-17-2022 15:20-0400 Systolic blood pressure 144 mm[Hg] Dr. Pat Bennett Work Phone: [facility] 09-27-2022 15:50-0400 Body mass index (BMI) [Ratio] 26.6 kg/m2 Dr. Pat Bennett Work Phone: [facility] 09-27-2022 15:50-0400 Body temperature 98.4 [degF] Dr. Pat Bennett Work Phone: [facility] 09-27-2022 15:50-0400 Body weight 59.[address] Pat Bennett Work Phone: [facility] 09-27-2022 15:50-0400 Diastolic blood pressure 55 mm[Hg] Dr. Pat Bennett Work Phone: [facility] 09-27-2022 15:50-0400 Heart rate 58 /min Dr. Pat Bennett Work Phone: [facility] 09-27-2022 15:50-0400 Respiratory rate 16 /min Dr. Pat Bennett Work Phone: [facility] 09-27-2022 15:50-0400 SaO2% (BldA) [Mass fraction] 94 % Dr. Pat Bennett Work Phone: [facility] 09-27-2022 15:50-0400 Systolic blood pressure 126 mm[Hg] Dr. Pat Bennett Work Phone: [facility] 09-15-2022 17:56-0400 Heart rate 70 /min Dr. Pat Bennett Work Phone: [facility] 09-15-2022 17:56-0400 Respiratory rate 24 /min Dr. Pat Bennett Work Phone: [facility] 09-15-2022 17:56-0400 SaO2% (BldA) [Mass fraction] 94 % Dr. Pat Bennett Work Phone: [facility] 09-15-2022 16:57-0400 Diastolic blood pressure 78 mm[Hg] Dr. Pat Bennett Work Phone: [facility] 09-15-2022 16:57-0400 Systolic blood pressure 147 mm[Hg] Dr. Pat Bennett Work Phone: [facility] 09-15-2022 15:44-0400 Body height 149.[address] Pat Bennett Work Phone: [facility] 09-15-2022 15:44-0400 Body mass index (BMI) [Ratio] 27.7 kg/m2 Dr. Pat Bennett Work Phone: [facility] 09-15-2022 15:44-0400 Body temperature 97.9 [degF] Dr. Pat Bennett Work Phone: [facility] 09-15-2022 15:44-0400 Body weight 62.[address] Pat Bennett Work Phone: [facility] 08-17-2022 08:06-0400 Body height 149.[address] Pat Bennett Work Phone: [facility] 08-17-2022 08:06-0400 Body mass index (BMI) [Ratio] 26.5 kg/m2 Dr. Pat Bennett Work Phone: [facility] 08-17-2022 08:06-0400 Body temperature 97.8 [degF] Dr. Pat Bennett Work Phone: [facility] 08-17-2022 08:06-0400 Body weight 59.[address] aPt Bennett Work Phone: [facility] 08-17-2022 08:06-0400 Diastolic blood pressure 64 mm[Hg] Dr. Pat Bennett Work Phone: [facility] 08-17-2022 08:06-0400 Heart rate 45 /min Dr. Pat Bennett Work Phone: [facility] 08-17-2022 08:06-0400 Respiratory rate 18 /min Dr. Pat Bennett Work Phone: [facility] 08-17-2022 08:06-0400 SaO2% (BldA) [Mass fraction] 98 % Dr. Pat Bennett Work Phone: [facility] 08-17-2022 08:06-0400 Systolic blood pressure 124 mm[Hg] Dr. Pat Bennett Work Phone: [facility] 08-15-2022 20:30-0400 Diastolic blood pressure 71 mm[Hg] [facility] 08-15-2022 20:30-0400 Heart rate 56 /min Text Entry [facility] 08-15-2022 20:30-0400 Respiratory rate 17 /min Text Entry [facility] 08-15-2022 20:30-0400 SaO2% (BldA) [Mass fraction] 95 % Text [facility] 08-15-2022 20:30-0400 Systolic blood pressure 162 mm[Hg] Text Entry [facility] 08-15-2022 14:22-0400 Body height 180.3 cm Text Entry [facility] 08-15-2022 14:22-0400 Body temperature 98.24 [degF] Text Entry [facility] 08-15-2022 14:22-0400 Body weight 58.1 kg Text Entry [facility] 08-08-2022 09:48-0400 Body temperature 98.4 [degF] Dr. Pat Bennett Work Phone: [facility] 08-08-2022 09:48-0400 Diastolic blood pressure 48 mm[Hg] Dr. Pat Bennett Work Phone: [facility] 08-08-2022 09:48-0400 Heart rate 53 /min Dr. Pat Bennett Work Phone: [facility] 08-08-2022 09:48-0400 Respiratory rate 18 /min Dr. Pat Bennett Work Phone: [facility] 08-08-2022 09:48-0400 SaO2% (BldA) [Mass fraction] 99 % Dr. Pat Bennett Work Phone: [facility] 08-08-2022 09:48-0400 Systolic blood pressure 120 mm[Hg] Dr. Pat Bennett Work Phone: [facility] 08-05-2022 14:06-0400 Body height 149.[address] Pat Bennett Work Phone: [facility] 08-05-2022 14:06-0400 Body weight 61.[address] Pat Bennett Work Phone: [facility] 08-04-2022 22:40-0400 Body mass index (BMI) [Ratio] 27.3 kg/m2 Dr. Pat Bennett Work Phone: [facility] 08-04-2022 19:37-0400 Body temperature 98.1 [degF] Dr. Pat Bennett Work Phone: [facility] 08-04-2022 19:37-0400 Diastolic blood pressure 62 mm[Hg] Dr. Pat Bennett Work Phone: [facility] 08-04-2022 19:37-0400 Heart rate 76 /min Dr. Pat Bennett Work Phone: [facility] 08-04-2022 19:37-0400 Respiratory rate 18 /min Dr. Pat Bennett Work Phone: [facility] 08-04-2022 19:37-0400 SaO2% (BldA) [Mass fraction] 97 % Dr. Pat Bennett Work Phone: [facility] 08-04-2022 19:37-0400 Systolic blood pressure 164 mm[Hg] Dr. Pat Bennett Work Phone: [facility] 08-04-2022 16:52-0400 Body height 149.[address] Pat Bennett Work Phone: [facility] 08-04-2022 16:52-0400 Body mass index (BMI) [Ratio] 28.1 kg/m2 Dr. Pat Bennett Work Phone: [facility] 08-04-2022 16:52-0400 Body weight 63.[address] Pat Bennett Work Phone: [facility] 07-20-2022 16:29-0500 Diastolic blood pressure 62 mm[Hg] Dr. Pat Bennett Work Phone: [facility] 07-20-2022 16:29-0500 Heart rate 60 /min Dr. Pat Bennett Work Phone: [facility] 07-20-2022 16:29-0500 Respiratory rate 16 /min Dr. Pat Bennett Work Phone: [facility] 07-20-2022 16:29-0500 SaO2% (BldA) [Mass fraction] 96 % Dr. Pat Bennett Work Phone: [facility] 07-20-2022 16:29-0500 Systolic blood pressure 148 mm[Hg] Dr. Pat Bennett Work Phone: [facility] 07-20-2022 12:50-0500 Body mass index (BMI) [Ratio] 26.4 kg/m2 Dr. Pat Bennett Work Phone: [facility] 07-20-2022 12:50-0500 Body temperature 97.9 [degF] Dr. Pat Bennett Work Phone: [facility] 07-20-2022 12:50-0500 Body weight 59.[address] Pat Bennett Work Phone: [facility] 04-11-2022 14:31-0500 Body temperature 97.6 [degF] Dr. Pat Bennett Work Phone: [facility] 04-11-2022 14:31-0500 Body weight 59.[address] Pat Bennett Work Phone: [facility] 04-11-2022 14:31-0500 Diastolic blood pressure 81 mm[Hg] Dr. Pat Bennett Work Phone: [facility] 04-11-2022 14:31-0500 Heart rate 60 /min Dr. Pat Bennett Work Phone: [facility] 04-11-2022 14:31-0500 Respiratory rate 16 /min Dr. Pat Bennett Work Phone: [facility] 04-11-2022 14:31-0500 SaO2% (BldA) [Mass fraction] 95 % Dr. Pat Bennett Work Phone: [facility] 04-11-2022 14:31-0500 Systolic blood pressure 151 mm[Hg] Dr. Pat Bennett Work Phone: [facility] 04-04-2022 14:55-0500 Body temperature 97.8 [degF] Dr. Pat Bennett Work Phone: [facility] Work Phone: 04-04-2022 14:55-0500 Body weight 59.[address] Pat Bennett Work Phone: [facility] Work Phone: 04-04-2022 14:55-0500 Diastolic blood pressure 80 mm[Hg] Dr. Pat Bennett Work Phone: [facility] Work Phone: 04-04-2022 14:55-0500 Heart rate 61 /min Dr. Pat Bennett Work Phone: [facility] Work Phone: 04-04-2022 14:55-0500 Respiratory rate 16 /min Dr. Pat Bennett Work Phone: [facility] Work Phone: 04-04-2022 14:55-0500 SaO2% (BldA) [Mass fraction] 94 % Dr. Pat Bennett Work Phone: [facility] Work Phone: 04-04-2022 14:55-0500 Systolic blood pressure 140 mm[Hg] Dr. Pat Bennett Work Phone: [facility] Work Phone: 03-28-2022 15:17-0500 Body height 149.[address] Pat Bennett Work Phone: [facility] Work Phone: 03-28-2022 15:17-0500 Body mass index (BMI) [Ratio] 27.2 kg/m2 Dr. Pat Bennett Work Phone: [facility] Work Phone: 03-28-2022 15:17-0500 Body temperature 98.9 [degF] Dr. Pat Bennett Work Phone: [facility] Work Phone: 03-28-2022 15:17-0500 Body weight 61.[address] Pat Bennett Work Phone: [facility] Work Phone: 03-28-2022 15:17-0500 Diastolic blood pressure 70 mm[Hg] Dr. Pat Bennett Work Phone: [facility] Work Phone: 03-28-2022 15:17-0500 Heart rate 62 /min Dr. Pat Bennett Work Phone: [facility] Work Phone: 03-28-2022 15:17-0500 Respiratory rate 18 /min Dr. Pat Bennett Work Phone: [facility] Work Phone: 03-28-2022 15:17-0500 SaO2% (BldA) [Mass fraction] 98 % Dr. Pat Bennett Work Phone: [facility] Work Phone: 03-28-2022 15:17-0500 Systolic blood pressure 176 mm[Hg] Dr. Pat Bennett Work Phone: [facility] Work Phone: 02-17-2022 15:59-0400 Body height 149.86 cm Servando Clay [employer] Work Phone: [facility] [place] [facility] Work Phone: 02-17-2022 15:59-0400 Body mass index (BMI) [Ratio] 26.56 kg/m2 Servando Clay [employer] [facility] [place] [facility] Work Phone: 02-17-2022 15:59-0400 Body surface area Derived from formula 1.54 m2 Servando Clay [employer] Work Phone: [facility] [facility] Work Phone: 02-17-2022 15:59-0400 Body weight 59.65 kg Servando Clay DO Work Phone: [facility] [address] Work Phone: 02-17-2022 15:59-0400 Diastolic blood pressure 82 mm[Hg] Servando Careyae DO Work Phone: [facility] [address] Work Phone: 02-17-2022 15:59-0400 Systolic blood pressure 120 mm[Hg] Servando Clay DO [facility] [place] Work Phone: 02-07-2022 13:14-0400 Body height 149.[address] Pat Bennett Work Phone: [facility] Work Phone: 02-07-2022 13:14-0400 Body mass index (BMI) [Ratio] 25.9 kg/m2 Dr. Pat Bennett Work Phone: [facility] Work Phone: 02-07-2022 13:14-0400 Body temperature 96.2 [degF] Dr. Pat Bennett Work Phone: [facility] Work Phone: 02-07-2022 13:14-0400 Body weight 58.[address] Pat Bennett Work Phone: [facility] Work Phone: 02-07-2022 13:14-0400 Diastolic blood pressure 70 mm[Hg] Dr. Pat Bennett Work Phone: [facility] Work Phone: 02-07-2022 13:14-0400 Heart rate 53 /min Dr. Pat Bennett Work Phone: [facility] Work Phone: 02-07-2022 13:14-0400 Respiratory rate 18 /min Dr. Pat Bennett Work Phone: [facility] Work Phone: 02-07-2022 13:14-0400 SaO2% (BldA) [Mass fraction] 94 % Dr. Pat Bennett Work Phone: [facility] Work Phone: 02-07-2022 13:14-0400 Systolic blood pressure 153 mm[Hg] Dr. Pat Bennett Work Phone: [facility] Work Phone: 01-14-2022 13:05-0400 Body height 149.[address] Pat Bennett Work Phone: [facility] Work Phone: 01-14-2022 13:05-0400 Body mass index (BMI) [Ratio] 25.9 kg/m2 Dr. Pat Bennett Work Phone: [facility] Work Phone: 01-14-2022 13:05-0400 Body weight 58.[address] Pat Bennett Work Phone: [facility] Work Phone: 01-14-2022 13:05-0400 Diastolic blood pressure 70 mm[Hg] Dr. Pat Bennett Work Phone: [facility] Work Phone: 01-14-2022 13:05-0400 Heart rate 56 /min Dr. Pat Bennett Work Phone: [facility] Work Phone: 01-14-2022 13:05-0400 Respiratory rate 18 /min Dr. Pat Bennett Work Phone: [facility] Work Phone: 01-14-2022 13:05-0400 Systolic blood pressure 120 mm[Hg] Dr. Pat Bennett Work Phone: [facility] Work Phone: 01-06-2022 13:38-0400 Body height 149.86 cm Servando Clay DO Work Phone: [facility] [facility] Work Phone: 01-06-2022 13:38-0400 Body mass index (BMI) [Ratio] 25.65 kg/m2 Servando Clay DO Work Phone: [facility] [facility] Work Phone: 01-06-2022 13:38-0400 Body surface area Derived from formula 1.52 m2 Servando Clay DO Work Phone: [facility] [facility] Work Phone: 01-06-2022 13:38-0400 Body weight 57.61 kg Servando Clay DO Work Phone: [facility] [facility] Work Phone: 01-06-2022 13:38-0400 Diastolic blood pressure 70 mm[Hg] Servando Clay DO Work Phone: [facility] [facility] Work Phone: 01-06-2022 13:38-0400 Systolic blood pressure 124 mm[Hg] Servando Clay DO Work Phone: [facility] Work Phone: 12-10-2021 13:26-0400 Body height 149.[address] Pat Bennett Work Phone: [facility] Work Phone: 12-10-2021 13:26-0400 Body mass index (BMI) [Ratio] 25.6 kg/m2 Dr. Pat Bennett Work Phone: [facility] Work Phone: 12-10-2021 13:26-0400 Body temperature 97 [degF] Dr. Pat Bennett Work Phone: [facility] Work Phone: 12-10-2021 13:26-0400 Body weight 57.[address] Pat Bennett Work Phone: [facility] Work Phone: 12-10-2021 13:26-0400 Diastolic blood pressure 82 mm[Hg] Dr. Pat Bennett Work Phone: [facility] Work Phone: 12-10-2021 13:26-0400 Heart rate 52 /min Dr. Pat Bennett Work Phone: [facility] Work Phone: 12-10-2021 13:26-0400 Respiratory rate 18 /min Dr. Pat Bennett Work Phone: [facility] Work Phone: 12-10-2021 13:26-0400 SaO2% (BldA) [Mass fraction] 97 % Dr. Pat Bennett Work Phone: [facility] Work Phone: 12-10-2021 13:26-0400 Systolic blood pressure 140 mm[Hg] Dr. Pat Bennett Work Phone: [facility] Work Phone: 11-16-2021 11:05-0400 Body temperature 98.2 [degF] Dr. Pat Bennett Work Phone: [facility] Work Phone: 11-16-2021 11:05-0400 Diastolic blood pressure 62 mm[Hg] Dr. Pat Bennett Work Phone: [facility] Work Phone: 11-16-2021 11:05-0400 Heart rate 52 /min Dr. Pat Bennett Work Phone: [facility] Work Phone: 11-16-2021 11:05-0400 Respiratory rate 17 /min Dr. Pat Bennett Work Phone: [facility] Work Phone: 11-16-2021 11:05-0400 Systolic blood pressure 104 mm[Hg] Dr. Pat Bennett Work Phone: [facility] Work Phone: 11-16-2021 10:48-0400 Body height 149.[address] Pat Bennett Work Phone: [facility] Work Phone: 11-16-2021 10:48-0400 Body mass index (BMI) [Ratio] 25 kg/m2 Dr. Pat Bennett Work Phone: [facility] Work Phone: 11-16-2021 10:48-0400 Body weight 56.[address] Pat Bennett Work Phone: [facility] Work Phone: 11-16-2021 10:48-0400 SaO2% (BldA) [Mass fraction] 100 % Dr. Pat Bennett Work Phone: [facility] Work Phone: 11-16-2021 09:46-0400 Body mass index (BMI) [Ratio] 24.6 kg/m2 Dr. Pat Bennett Work Phone: [facility] Work Phone: 11-16-2021 09:46-0400 Body temperature 97.3 [degF] Dr. Pat Bennett Work Phone: [facility] Work Phone: 11-16-2021 09:46-0400 Body weight 55.[address] Pat Bennett Work Phone: [facility] Work Phone: 11-16-2021 09:46-0400 Diastolic blood pressure 50 mm[Hg] Dr. Pat Bennett Work Phone: [facility] Work Phone: 11-16-2021 09:46-0400 Heart rate 68 /min Dr. Pat Bennett Work Phone: [facility] Work Phone: 11-16-2021 09:46-0400 Respiratory rate 16 /min Dr. Pat Bennett Work Phone: [facility] Work Phone: 11-16-2021 09:46-0400 SaO2% (BldA) [Mass fraction] 99 % Dr. Pat Bennett Work Phone: [facility] Work Phone: 11-16-2021 09:46-0400 Systolic blood pressure 90 mm[Hg] Dr. Pat Bennett Work Phone: [facility] Work Phone: 11-10-2021 09:47-0400 Body temperature 97.6 [degF] Dr. Pat Bennett Work Phone: [facility] Work Phone: 11-10-2021 09:47-0400 Diastolic blood pressure 48 mm[Hg] Dr. Pat Bennett Work Phone: [facility] Work Phone: 11-10-2021 09:47-0400 Heart rate 55 /min Dr. Pat Bennett Work Phone: [facility] Work Phone: 11-10-2021 09:47-0400 Respiratory rate 18 /min Dr. Pat Bennett Work Phone: [facility] Work Phone: 11-10-2021 09:47-0400 SaO2% (BldA) [Mass fraction] 97 % Dr. Pat Bennett Work Phone: [facility] Work Phone: 11-10-2021 09:47-0400 Systolic blood pressure 133 mm[Hg] Dr. Pat Bennett Work Phone: [facility] Work Phone: 11-08-2021 10:31-0400 Body height 149.[address] Pat Bennett Work Phone: [facility] Work Phone: 11-08-2021 10:31-0400 Body weight 55.[address] Pat Bennett Work Phone: [facility] Work Phone: 11-07-2021 21:32-0400 Body mass index (BMI) [Ratio] 24.9 kg/m2 Dr. Pat Bennett Work Phone: [facility] Work Phone: 11-07-2021 21:00-0400 Diastolic blood pressure 58 mm[Hg] Dr. Pat Bennett Work Phone: [facility] Work Phone: 11-07-2021 21:00-0400 Heart rate 67 /min Dr. Pat Bennett Work Phone: [facility] Work Phone: 11-07-2021 21:00-0400 Respiratory rate 15 /min Dr. Pat Bennett Work Phone: [facility] Work Phone: 11-07-2021 21:00-0400 SaO2% (BldA) [Mass fraction] 99 % Dr. Pat Bennett Work Phone: [facility] Work Phone: 11-07-2021 21:00-0400 Systolic blood pressure 125 mm[Hg] Dr. Pat Bennett Work Phone: [facility] Work Phone: 11-07-2021 20:04-0400 Body temperature 98.1 [degF] Dr. Pat Bennett Work Phone: [facility] Work Phone: 11-07-2021 16:36-0400 Body height 149.[address] Pat Bennett Work Phone: [facility] Work Phone: 11-07-2021 16:36-0400 Body mass index (BMI) [Ratio] 25.2 kg/m2 Dr. Pat Bennett Work Phone: [facility] Work Phone: 11-07-2021 16:36-0400 Body weight 56.[address] Pat Bennett Work Phone: [facility] Work Phone: 10-12-2021 10:34-0400 Body mass index (BMI) [Ratio] 25.6 kg/m2 Dr. Pat Bennett Work Phone: [facility] Work Phone: 10-12-2021 10:34-0400 Body weight 57.[address] Pat Bennett Work Phone: [facility] Work Phone: 10-12-2021 10:34-0400 Diastolic blood pressure 57 mm[Hg] Dr. Pat Bennett Work Phone: [facility] Work Phone: 10-12-2021 10:34-0400 Heart rate 74 /min Dr. Pat Bennett Work Phone: [facility] Work Phone: 10-12-2021 10:34-0400 Respiratory rate 22 /min Dr. Pat Bennett Work Phone: [facility] Work Phone: 10-12-2021 10:34-0400 SaO2% (BldA) [Mass fraction] 97 % Dr. Pat Bennett Work Phone: [facility] Work Phone: 10-12-2021 10:34-0400 Systolic blood pressure 110 mm[Hg] Dr. Pat Bennett Work Phone: [facility] Work Phone: 10-12-2021 10:34-0400 Body height 149.[address] Pat Bennett Work Phone: [facility] Work Phone: 09-10-2021 13:14-0400 Diastolic blood pressure 71 mm[Hg] Pepito Joy RN [facility] 09-10-2021 13:14-0400 Heart rate 53 /min Pepito Joy RN [facility] 09-10-2021 13:14-0400 SaO2% (BldA) [Mass fraction] 94 % Pepito Joy RN [facility] 09-10-2021 13:14-0400 Systolic blood pressure 116 mm[Hg] Pepito Joy RN [facility] 08-23-2021 12:33-0400 Body height 149.9 cm Jessica Zuñiga MD Work Phone: [facility] 08-23-2021 12:33-0400 Body mass index (BMI) [Ratio] 25.25 kg/m2 Jessica Zuñiga MD Work Phone: [facility] 08-23-2021 12:33-0400 Body weight 56.7 kg Jessica Zuñiga MD Work Phone: [facility] 08-23-2021 12:33-0400 Diastolic blood pressure 63 mm[Hg] Jessica Zuñiga MD Work Phone: [facility] 08-23-2021 12:33-0400 Heart rate 58 /min Jessica Zuñiga MD Work Phone: [facility] 08-23-2021 12:33-0400 Systolic blood pressure 108 mm[Hg] Jessica Zuñiga MD Work Phone: [facility] 07-26-2021 13:38-0500 Body mass index (BMI) [Ratio] 24.8 kg/m2 Dr. Pat Bennett Work Phone: [facility] Work Phone: 07-26-2021 13:38-0500 Body temperature 96.7 [degF] Dr. Pat Bennett Work Phone: [facility] Work Phone: 07-26-2021 13:38-0500 Body weight 55.[address] Pat Bennett Work Phone: [facility] Work Phone: 07-26-2021 13:38-0500 Diastolic blood pressure 70 mm[Hg] Dr. Pat Bennett Work Phone: [facility] Work Phone: 07-26-2021 13:38-0500 Heart rate 62 /min Dr. Pat Bennett Work Phone: [facility] Work Phone: 07-26-2021 13:38-0500 Respiratory rate 16 /min Dr. Pat Bennett Work Phone: [facility] Work Phone: 07-26-2021 13:38-0500 SaO2% (BldA) [Mass fraction] 98 % Dr. Pat Bennett Work Phone: [facility] Work Phone: 07-26-2021 13:38-0500 Systolic blood pressure 120 mm[Hg] Dr. Pat Bennett Work Phone: [facility] Work Phone: 07-26-2021 12:38-0500 Body mass index (BMI) [Ratio] 24.8 kg/m2 Dr. Pat Bennett Work Phone: [facility] Work Phone: 07-26-2021 12:38-0500 Body temperature 96.7 [degF] Dr. Pat Bennett Work Phone: [facility] Work Phone: 07-26-2021 12:38-0500 Body weight 55.[address] Pat Bennett Work Phone: [facility] Work Phone: 07-26-2021 12:38-0500 Diastolic blood pressure 70 mm[Hg] Dr. Pat Bennett Work Phone: [facility] Work Phone: 07-26-2021 12:38-0500 Heart rate 62 /min Dr. Pat Bennett Work Phone: [facility] Work Phone: 07-26-2021 12:38-0500 Respiratory rate 16 /min Dr. Pat Bennett Work Phone: [facility] Work Phone: 07-26-2021 12:38-0500 SaO2% (BldA) [Mass fraction] 98 % Dr. Pat Bennett Work Phone: [facility] Work Phone: 07-26-2021 12:38-0500 Systolic blood pressure 120 mm[Hg] Dr. Pat Bennett Work Phone: [facility] Work Phone: 07-03-2021 17:35-0500 Body temperature 97.4 [degF] Dr. Pat Bennett Work Phone: [facility] Work Phone: 07-03-2021 17:35-0500 Diastolic blood pressure 78 mm[Hg] Dr. Pat Bennett Work Phone: [facility] Work Phone: 07-03-2021 17:35-0500 Heart rate 62 /min Dr. Pat Bennett Work Phone: [facility] Work Phone: 07-03-2021 17:35-0500 Respiratory rate 14 /min Dr. Pat Bennett Work Phone: [facility] Work Phone: 07-03-2021 17:35-0500 SaO2% (BldA) [Mass fraction] 98 % Dr. Pat Bennett Work Phone: [facility] Work Phone: 07-03-2021 17:35-0500 Systolic blood pressure 122 mm[Hg] Dr. Pat Bennett Work Phone: [facility] Work Phone: 07-03-2021 14:09-0500 Body mass index (BMI) [Ratio] 27.6 kg/m2 Dr. Pat Bennett Work Phone: [facility] Work Phone: 07-03-2021 14:09-0500 Body weight [address] Pat Bennett Work Phone: [facility] Work Phone: 03-17-2021 19:00-0400 Diastolic blood pressure 70 mm[Hg] [facility] 03-17-2021 19:00-0400 Heart rate 60 /min [facility] 03-17-2021 19:00-0400 Respiratory rate 17 /min [facility] 03-17-2021 19:00-0400 SaO2% (BldA) [Mass fraction] 96 % [facility] 03-17-2021 19:00-0400 Systolic blood pressure 144 mm[Hg] [facility] 03-17-2021 16:57-0400 Body height 149.8 cm [facility] 03-17-2021 16:57-0400 Body temperature 98.06 [degF] Text [facility] 03-17-2021 16:57-0400 Body weight 59.1 kg Text [facility] 02-11-2020 15:02-0400 BMI (Body Mass Index) 26.85 kg/m2 [facility] 02-11-2020 15:02-0400 Body Temperature 98.6 [degF] [facility]-11-2020 15:02-0400 Body weight 60.3 kg [facility] 02-11-2020 15:02-0400 Height 149.9 cm Marzena [facility] 01-30-2020 10:19-0400 BP Diastolic 74 mm[Hg] [facility] 01-30-2020 10:19-0400 BP Systolic 167 mm[Hg] [facility] 01-30-2020 10:19-0400 Pulse (Heart Rate) 61 /min [facility] 01-30-2020 10:19-0400 Pulse Oximetry 96 % [facility] 01-30-2020 10:19-0400 Respiratory Rate 16 /min [facility] 01-30-2020 09:49-0400 Body Temperature 98.2 [degF] [facility] 01-30-2020 08:55-0400 BMI (Body Mass Index) 26.86 kg/m2 [facility] 01-30-2020 08:55-0400 Body weight 60.33 kg [facility] 01-30-2020 08:55-0400 Height 149.9 cm [facility] [employer] [facility] 01-21-2020 13:06-0400 BMI (Body Mass Index) 26.86 kg/m2 [facility] 01-21-2020 13:06-0400 Body Temperature 98.01 [degF] [facility] 01-21-2020 13:06-0400 Body weight 60.33 kg Marzena [facility] 01-21-2020 13:06-0400 Height 149.9 cm Marzena [facility] 01-01-2020 13:06-0400 BMI (Body Mass Index) 26.86 kg/m2 Servando Clay [facility] Work Phone: 01-01-2020 13:06-0400 Body Temperature 98.2 [degF] Servando Clay [facility] Work Phone: 01-01-2020 13:06-0400 Body weight 60.33 kg Servando Clay [facility] Work Phone: 01-01-2020 13:06-0400 BP Diastolic 86 mm[Hg] Servando Clay [facility] Work Phone: 01-01-2020 13:06-0400 BP Systolic 130 mm[Hg] Servando Clay [facility] Work Phone: 01-01-2020 13:06-0400 BSA (Body Surface Area) 1.55 m2 Servando Clay [facility] Work Phone: 01-01-2020 13:06-0400 Height 149.86 cm Servando Clay [facility] Work Phone: 12-24-2019 13:19-0400 BMI (Body Mass Index) 27.02 kg/m2 [facility] 12-24-2019 13:19-0400 Body Temperature 98.01 [degF] [facility] 12-24-2019 13:19-0400 Body weight 60.69 kg [facility] 12-24-2019 13:19-0400 Height 149.9 cm [facility] 10-16-2019 11:30-0400 Body Temperature 97.59 [degF] [facility] 10-16-2019 11:30-0400 BP Diastolic 69 mm[Hg] [facility] 10-16-2019 11:30-0400 BP Systolic 157 mm[Hg] [facility] 10-16-2019 11:30-0400 Pulse (Heart Rate) 58 /min [facility] 10-16-2019 11:30-0400 Pulse Oximetry 96 % [facility] 10-16-2019 11:30-0400 Respiratory Rate 16 /min [facility] 10-15-2019 23:16-0400 BMI (Body Mass Index) 28.05 kg/m2 [facility] 10-15-2019 23:16-0400 Body weight 63.01 kg [facility] 10-15-2019 23:16-0400 Height 149.9 cm [facility] 05-30-2019 13:31-0500 BMI (Body Mass Index) 26.86 kg/m2 [facility] 05-30-2019 13:31-0500 Body Temperature 98.29 [degF] [facility] 05-30-2019 13:31-0500 Body weight 60.33 kg [facility] 05-30-2019 13:31-0500 Height 149.9 cm [facility] 04-15-2019 13:42-0500 BMI (Body Mass Index) 25.78 kg/m2 [facility] 04-15-2019 13:42-0500 Body Temperature 98.29 [degF] [facility] 04-15-2019 13:42-0500 [facility]-15-[facility] 13:42-0500 Height 152.4 cm [facility] 04-03-2019 13:04-0500 BMI (Body Mass Index) 26.05 kg/m2 [facility] 04-03-2019 13:04-0500 Body Temperature 98.49 [degF] [facility] 04-03-2019 13:04-0500 Body weight 60.5 kg [facility] 04-03-2019 13:04-0500 Height 152.4 cm [facility] 03-15-2019 12:42-0400 BMI (Body Mass Index) 26.17 kg/m2 [facility] 03-15-2019 12:42-0400 Body Temperature 98.2 [degF] [facility] 03-15-2019 12:42-0400 Body weight 60.78 kg [facility] 03-15-2019 12:42-0400 Height 152.4 cm [facility] 03-04-2019 13:24-0400 BMI (Body Mass Index) 26.17 kg/m2 [facility] 03-04-2019 13:24-0400 Body Temperature 97.59 [degF] [facility] 03-04-2019 13:24-0400 Body weight 60.78 kg [facility] 03-04-2019 13:24-0400 BP Diastolic 70 mm[Hg] [facility] 03-04-2019 13:24-0400 BP Systolic 128 mm[Hg] [facility] 03-04-2019 13:24-0400 Pulse (Heart Rate) 84 /min [facility] 03-04-2019 13:24-0400 Pulse Oximetry 93 % [facility] 05-03-2018 19:44-0500 Body Temperature 98.49 [degF] [facility] Work Phone: 05-03-2018 19:44-0500 BP Diastolic 93 mm[Hg] [facility] Work Phone: 05-03-2018 19:44-0500 BP Systolic 228 mm[Hg] [facility] Work Phone: 05-03-2018 19:44-0500 Pulse (Heart Rate) 60 /min [facility] Work Phone: 05-03-2018 19:44-0500 Pulse Oximetry 98 % [facility] Work Phone: 05-03-2018 19:44-0500 Respiratory Rate 22 /min [facility] Work Phone: 05-03-2018 17:21-0500 Height 152.4 cm Rashard Gallegos [facility] Work Phone: Encounters Encounter Date Encounter Type Care Provider Facility Start: 01-06-2025 ambulatory Seth Romero Facility :[facility] Start: 09-17-2024 ambulatory Denise Uribe Facility :[facility] Start: 09-17-2024 End: 09-19-2024 Evaluation and management of inpatient Dr. Denise Uribe MD Work Phone: [facility] Work Phone: Start: 09-17-2024 Dr. Jailyn dave MD -Progressive Care Unit Work Phone: Start: 08-07-2024 End: 08-07-2024 Dr. Denise Uribe MD -Medical Out Work Phone: Start: 08-07-2024 End: 08-07-[address] Denise Uribe MD Work Phone: [facility] Work Phone: Start: 07-24-2024 End: 07-24-[address] Denise Uribe MD Work Phone: [facility] Work Phone: Start: 07-24-2024 End: 07-24-2024 Dr. Denise Uribe MD -Laboratory, [facility] Start: 07-24-2024 End: 07-24-2024 Dr. Denise Uribe MD -[facility] Work Phone: Start: 07-24-2024 End: 07-24-2024 ambulatory Denise Uribe Facility:[facility] Start: 07-24-2024 End: 07-24-2024 ambulatory Denise Uribe Facility:[facility] Start: 06-18-2024 Dr. Devi perrin DO [facility] Work Phone: Start: 06-17-2024 Dr. Devi perrin DO [facility] Work Phone: Start: 06-16-2024 ambulatory Denise Jojo Facility :[facility] Start: 06-16-2024 End: 06-18-2024 Evaluation and management of inpatient Denise Monticello Facility:[facility] Start: 06-16-2024 End: 06-18-2024 Dr. Devi Paredes DO -Medical Surgical 3 Work Phone: Start: 05-22-2024 Dr. Harry Iniguez MD -[facility] Work Phone: Start: 05-22-2024 [facility] Start: 05-21-2024 Dr. Harry Iniguez MD -[facility] Work Phone: Start: 05-20-2024 Dr. Harry Iniguez MD -[facility] Work Phone: Start: 05-20-2024 Dr. Jb rasmussen MD -[facility] Start: 05-19-2024 Dr. Jb rasmussen MD [facility] Start: 05-19-2024 Dr. Jailyn dave MD -[facility] Work Phone: Start: 05-18-2024 End: 05-18-2024 ambulatory Bassem olivas Edwar Facility:[facility] Start: 05-18-2024 End: 05-18-2024 Dr. Hernando Colón MD -[facility] Work Phone: Start: 05-18-2024 [facility] Start: 05-18-2024 Dr. Jailyn dave MD -[facility] Work Phone: Start: 05-17-2024 ambulatory Jamaal Ron Facility:[facility] Start: 05-17-2024 Dr. Jb rasmussen MD [facility] Start: 05-17-2024 Dr. Jailyn dave MD -[facility] Work Phone: Start: 05-16-2024 Dr. Davie easley MD -[facility] Start: 05-16-2024 Dr. Jailyn dave MD -[facility] Work Phone: Start: 05-15-2024 Dr. Davie easley MD -[facility] Start: 05-15-2024 Dr. Jailyn dave MD -[facility] Work Phone: Start: 05-14-2024 Dr. Davie easley MD -[facility] Start: 05-14-2024 End: 05-14-2024 ambulatory Bassem de Edwar Facility:[facility] Start: 05-14-2024 End: 05-14-2024 Dr. Hernando Colón MD -[facility] Work Phone: Start: 05-14-2024 Dr. Jailyn dave MD -[facility] Work Phone: Start: 05-13-2024 ambulatory bJ Jackson Facility: [facility] Start: 05-13-2024 End: 05-22-2024 Evaluation and management of inpatient Bassem Turnero Facility:[facility] Start: 05-13-2024 End: 05-22-2024 Dr. Harry Iniguez MD -Progressive Care Unit Work Phone: Start: 04-22-2024 ambulatory Denise Monticello Facility :[facility] Start: 04-22-2024 Dr. Mel Beaver MD -[facility] Start: 04-22-2024 ambulatory Carrillo Handley Facility:[facility] Start: 04-22-2024 Dr. Carrillo Handley MD -[facility] Start: 04-22-2024 End: 04-22-2024 Humaira MUNOZ -Cardiovascular Services Work Phone: Start: 04-22-2024 End: 04-22-2024 ambulatory Denise Monticello Facility:[facility] Start: 03-26-2024 End: 03-26-2024 ambulatory Denise Monticello Facility:[facility] Start: 03-26-2024 ambulatory Denise Monticello Facility :[facility] Start: 03-21-2024 End: 03-21-2024 ambulatory Denise Uribe Facility:[facility] Start: 03-20-2024 End: 03-20-2024 ambulatory Seth Serg Facility:[facility] Start: 03-20-2024 End: 03-20-2024 ambulatory Seth Serg Facility:[facility] Start: 03-18-2024 ambulatory Carrillo Sotoey Facility:[facility] Start: 03-18-2024 End: 03-18-2024 ambulatory Denise Princelay Facility:[facility] Start: 02-23-2024 End: 02-23-2024 ambulatory Desiree Ferullo Facility:[facility] Start: 02-19-2024 End: 02-19-2024 ambulatory Desiree Ferullo Facility:[facility] Start: 01-29-2024 End: 01-29-2024 Emergency department patient visit Denise Uribe Facility:[facility] Start: 01-11-2024 ambulatory Seth Serg Facility :[facility] Start: 12-21-2023 End: 12-21-2023 ambulatory Seth Serg Facility:[facility] Start: 12-14-2023 ambulatory Desiree Ferullo Facility: [facility] Start: 12-05-2023 End: 12-05-2023 ambulatory Desiree Ferullo Facility:[facility] Start: 12-05-2023 End: 12-05-2023 ambulatory Desiree Ferullo Facility:[facility] Start: 10-27-2023 ambulatory Denise Uribe Facility :[facility] Start: 09-14-2023 End: 09-14-[address] Denise Uribe Work Phone: [facility] Work Phone: Start: 09-14-2023 End: 09-14-2023 Dr. Denise Uribe Work Phone: [facility] Work Phone: Start: 09-11-2023 End: 09-11-2023 Emergency department patient visit Dr. Denise Uribe Work Phone: [facility] Work Phone: Start: 09-11-2023 End: 09-11-2023 Dr. Denise Uribe Work Phone: [facility]-Emergency Department Work Phone: Start: 08-17-2023 End: 08-17-[address] Denise Uribe Work Phone: [facility] Work Phone: Start: 08-17-2023 End: 08-17-[address] Denise Uribe Work Phone: [facility] Start: 08-17-2023 End: 08-17-2023 [facility] Start: 08-17-2023 End: 08-17-[address] Denise Uribe Work Phone: [facility] Work Phone: Start: 08-17-2023 End: 08-17-2023 Dr. Denise Uribe Work Phone: [facility] Work Phone: Start: 08-08-2023 Non-patient / Non-visit Dr. Bean Work Phone: [facility] Start: 08-08-2023 End: 08-08-[address] Denise Uribe Work Phone: [facility] Work Phone: Start: 08-08-2023 End: 08-08-[address] [facility] Start: 08-08-2023 End: 08-08-2023 Dr. Denise Uribe Work Phone: [facility] Start: 07-21-2023 End: 07-21-[address] Denise Uribe Work Phone: [facility] [facility] Work Phone: Start: 07-21-2023 End: 07-21-2023 Dr. Denise Uribe [facility] Phone[facility] Work Phone: Start: 07-11-2023 End: 07-11-2023 ambulatory NEURODIAGNOSTIC TECHNICIAN-C Devi Delgado NEURODIAGNOSTIC TECHNICIAN Work Phone: [facility] Work Phone: Start: 07-11-2023 End: 07-11-2023 Patient encounter procedure NEURODIAGNOSTIC TECHNICIAN-C Devi Delgado NEURODIAGNOSTIC TECHNICIAN Work Phone: [facility] Work Phone: Start: 07-11-2023 End: 07-11-2023 Dr. Denise Uribe Work Phone: [facility] Work Phone: Start: 07-11-2023 End: 07-11-2023 Patient encounter procedure NEURODIAGNOSTIC TECHNICIAN-C Devi Delgado NEURODIAGNOSTIC TECHNICIAN Work Phone: [facility] Medicine Work Phone: Start: 07-11-2023 End: 07-11-2023 Dr. Denise Uribe Work Phone: [facility] Work Phone: Start: 07-07-2023 End: 07-07-2023 Patient encounter procedure NEURODIAGNOSTIC TECHNICIAN-C Devi Delgado NEURODIAGNOSTIC TECHNICIAN Work Phone: [facility] Work Phone: Start: 07-07-2023 End: 07-07-2023 Dr. Denise Uribe Work Phone: [facility] Work Phone: Start: 07-07-2023 End: 07-07-2023 Patient encounter procedure NEURODIAGNOSTIC TECHNICIAN-C Devi Delgado NEURODIAGNOSTIC TECHNICIAN Work Phone: [facility] Endocrinology Work Phone: Start: 07-07-2023 End: 07-07-2023 Dr. Denise Uribe Work Phone: [facility] Endocrin[facility] Work Phone: Start: 05-08-2023 End: 05-08-2023 Patient encounter procedure NEURODIAGNOSTIC TECHNICIAN-C Devi Delgado NEURODIAGNOSTIC TECHNICIAN Work Phone: [facility] Endocrin[facility] Work Phone: Start: 03-31-2023 End: 03-31-2023 Patient encounter procedure NEURODIAGNOSTIC TECHNICIAN-C Devi Delgado NEURODIAGNOSTIC TECHNICIAN Work Phone: [facility] End[facility]in[facility] Work Phone: Start: 03-31-2023 End: 03-31-2023 ambulatory NEURODIAGNOSTIC TECHNICIAN-C Devi Delgado NEURODIAGNOSTIC TECHNICIAN Work Phone: [facility] Work Phone: Start: 03-31-2023 End: 03-31-2023 Patient encounter procedure NEURODIAGNOSTIC TECHNICIAN-C Devi Maddoxder NEURODIAGNOSTIC TECHNICIAN Work Phone: [facility] Ul[facility] Work Phone: Start: 03-21-2023 End: 03-21-2023 Patient encounter procedure NEURODIAGNOSTIC TECHNICIAN-C Devi Maddoxder NEURODIAGNOSTIC TECHNICIAN Work Phone: [facility] Work Phone: Start: 02-16-2023 End: 02-16-2023 Patient encounter procedure NEURODIAGNOSTIC TECHNICIAN-C Devi Maddoxder NEURODIAGNOSTIC TECHNICIAN Work Phone: [facility] Work Phone: Start: 01-24-2023 End: 01-24-2023 Patient encounter procedure NEURODIAGNOSTIC TECHNICIAN-C Devi Maddoxder NEURODIAGNOSTIC TECHNICIAN Work Phone: [facility] Work Phone: Start: 12-20-2022 End: 12-20-2022 ambulatory NEURODIAGNOSTIC TECHNICIAN-C Devi Delgado NEURODIAGNOSTIC TECHNICIAN Work Phone: [facility] Work Phone: Start: 12-20-2022 End: 12-20-2022 Patient encounter procedure NEURODIAGNOSTIC TECHNICIAN-C Devi Deglado NEURODIAGNOSTIC TECHNICIAN Work Phone: [facility]-Cat Scan, [facility] Work Phone: Start: 12-08-2022 End: 12-08-2022 Patient encounter procedure NEURODIAGNOSTIC TECHNICIAN-C Devi Delgado NEURODIAGNOSTIC TECHNICIAN [facility] Work Phone: Start: 11-28-2022 End: 11-28-[address] Pat Bennett Work Phone: [facility] Work Phone: Start: 11-28-2022 End: 11-28-2022 Patient encounter procedure NEURODIAGNOSTIC TECHNICIAN-C Devi Delgado NEURODIAGNOSTIC TECHNICIAN Work Phone: [facility]-Ultrasound, [facility] Work Phone: Start: 11-28-2022 End: 11-28-2022 Dr. Pat Bennett Work Phone: [facility]-Ultrasound, [facility] Work Phone: Start: 11-17-2022 End: 11-17-2022 Patient encounter procedure NEURODIAGNOSTIC TECHNICIAN-C Devi Delgado NEURODIAGNOSTIC TECHNICIAN Work Phone: [facility]-Radiology, [facility] Work Phone: Start: 11-17-2022 End: 11-17-2022 Dr. Pat Bennett Work Phone: [facility]-Radiology, [facility] Work Phone: Start: 11-17-2022 End: 11-17-2022 Patient encounter procedure NEURODIAGNOSTIC TECHNICIAN-C Devi Delgado NEURODIAGNOSTIC TECHNICIAN Work Phone: [facility] Work Phone: Start: 11-17-2022 End: 11-17-2022 Dr. Pat Bennett Work Phone: [facility] Work Phone: Start: 09-27-2022 End: 09-27-2022 Patient encounter procedure NEURODIAGNOSTIC TECHNICIAN-Marlen Delgado NEURODIAGNOSTIC TECHNICIAN Work Phone: [facility] Endocrinology Work Phone: Start: 09-27-2022 End: 09-27-2022 Dr. Pat Bennett Work Phone: [facility]ocrinology Work Phone: Start: 09-15-2022 End: 09-15-2022 Emergency department patient visit Dr. Pat Bennett Work Phone: [facility] Work Phone: Start: 09-15-2022 End: 09-15-2022 Dr. Pat Bennett Work Phone: [facility]-Emergency Department Start: 08-17-2022 End: 08-17-[address] Pat Bennett Work Phone: [facility] Work Phone: Start: 08-17-2022 End: 08-17-[address] Pat Bennett Work Phone: [facility] Start: 08-17-2022 End: 08-17-2022 Dr. Pat Bennett Work Phone: [facility] Medicine Start: 08-15-2022 End: 08-15-2022 Emergency department patient visit Mayra Bridges [facility] Emergency 14 Start: 08-08-2022 Non-patient / Non-visit Dr. Dominique Bennett Work Phone: [facility] Start: 08-08-2022 Dr. Pat piper Work Phone: [facility] Start: 08-07-2022 Non-patient / Non-visit Dr. Dominique Bennett Work Phone: [facility] Start: 08-07-2022 Dr. Pat Rowell hner Work Phone: [facility] Start: 08-06-2022 Non-patient / Non-visit Dr. Dominique Bennett Work Phone: [facility] Start: 08-06-2022 Dr. Pat Rowell hner Work Phone: [facility] Start: 08-06-2022 Non-patient / Non-visit Dr. Dominique Bennett Work Phone: [facility] Start: 08-06-2022 Dr. Pat clementer Work Phone: [facility] Start: 08-05-2022 Non-patient / Non-visit Dr. Dominique Bennett Work Phone: [facility] Start: 08-05-2022 Dr. Pat Rowell hner Work Phone: [facility] Start: 08-04-2022 End: 08-08-2022 Evaluation and management of inpatient Dr. Pat Bennett Work Phone: [facility] Surgical 3 Start: 08-04-2022 End: 08-08-2022 Dr. Pat Bennett Work Phone: [facility] Surgical 3 Start: 07-20-2022 End: 07-20-2022 Emergency department patient visit Dr. Pat Bennett Work Phone: [facility]Emergency Department Start: 07-20-2022 End: 07-20-2022 Dr. Pat Bennett Work Phone: [facility] Start: 04-20-2022 End: 04-20-[address] Pat Bennett Work Phone: [facility] Work Phone: Start: 04-20-2022 End: 04-20-[address] [facility] Bennett [facility] Start: 04-11-2022 End: 04-11-[address] Pat Bennett Work Phone: [facility] Start: 04-06-2022 Rx Renewal Servando Clay DO Work Phone: [facility] 120 Work Phone: Start: 04-04-2022 End: 04-04-[address] Pat Bennett Work Phone: [facility] Start: 03-28-2022 End: 03-28-2022 Emergency department patient visit Dr. Pat Bennett Work Phone: [facility]Emer[facility] Start: 03-16-2022 Chart Update Servando Clay DO Work Phone: [facility] 120 Work Phone: Start: 03-16-2022 End: 03-16-2022 ambulatory Provider Pending Facility:[id number] Start: 02-17-2022 Office outpatient vi sit 15 minutes Provider AMAProvider Work Phone: [facility] Work Phone: Start: 02-17-2022 ambulatory SERVANDO CLAY Facility:[id number] Start: 02-07-2022 End: 02-07-[address] Pat Bennett Work Phone: [facility] Work Phone: Start: 02-07-2022 End: 02-07-[address] [facility] Start: 02-07-2022 End: 02-07-[address] Pat Bennett Work Phone: [facility] Start: 02-01-2022 Non-patient / Non-visit Dr. Dominique Bennett Work Phone: [facility] Start: 02-01-2022 End: 02-01-[address] Pat Bennett Work Phone: [facility] Work Phone: Start: 02-01-2022 End: 02-01-[address] Pat Bennett Work Phone: [facility]Cardiovascular Services Start: 01-14-2022 End: 01-14-[address] Pat Bennett Work Phone: [facility] Work Phone: Start: 01-14-2022 End: 01-14-[address] Pat Bennett Work Phone: [facility]-Laboratory Start: 01-14-2022 End: 01-14-[address] Pat Bennett Work Phone: [facility] Start: 01-06-2022 Office outpatient ne w 30 minutes Servando Clay DO Work Phone: [facility] [place] [address] Work Phone: Start: 01-06-2022 ambulatory Provider Pending Facili ty:[id number] Start: 12-10-2021 End: 12-10-[address] Pat Bennett Work Phone: [facility] Start: 11-16-2021 End: 11-16-2021 Emergency department patient visit Dr. Pat Bennett Work Phone: [facility]Emergency Department Start: 11-16-2021 End: 11-16-[address] Pat Bennett Work Phone: [facility] Start: 11-11-2021 Non-patient / Non-visit Dr. Dominique Bennett Work Phone: [facility] Start: 11-11-2021 End: 11-11-[address] Pat Bennett Work Phone: [facility]-Pulmonary Services/Neurology Start: 11-10-2021 Non-patient / Non-visit Dr. Dominique Bennett Work Phone: [facility] Start: 11-10-2021 Non-patient / Non-visit Dr. Dominique Bennett Work Phone: [facility] Start: 11-09-2021 Non-patient / Non-visit Dr. Dominique Bennett Work Phone: [facility] Start: 11-09-2021 Non-patient / Non-visit Dr. Dominique Bennett Work Phone: [facility] Start: 11-08-2021 Non-patient / Non-visit Dr. Dominique Bennett Work Phone: [facility] Start: 11-08-2021 Non-patient / Non-visit Dr. Dominique Bennett Work Phone: [facility] Start: 11-07-2021 Non-patient / Non-visit Dr. Dominique Bennett Work Phone: [facility] Start: 11-07-2021 End: 11-10-2021 Evaluation and management of inpatient Dr. Pat Bennett Work Phone: [facility]-Medical Surgical 3 Start: 11-05-2021 Non-patient / Non-visit Dr. Dominique Bennett Work Phone: [facility] Start: 11-05-2021 End: 11-05-[address] Pat Bennett Work Phone: [facility]Cardiovascular Services Start: 10-21-[address] [facility] Bennett [facility] Start: 10-21-2021 Non-patient / Non-visit Dr. Dominique Bennett Work Phone: [facility] Start: 10-19-2021 End: 10-19-[address] Pat Bennett Work Phone: [facility]Labor[facility] Start: 10-12-2021 End: 10-12-[address] Pat Bennett Work Phone: [facility] Start: 09-15-2021 End: 09-16-2021 ambulatory PHYSICIAN [facility] Start: 09-14-2021 End: 09-18-2021 ambulatory JESSICAADELA ZUÑIGA [facility] Start: 09-10-2021 End: 09-10-2021 Clinical Support Jessica Zuñiga MD Work Phone: [facility] Comment on above: Coronary artery dise ase involving [place] coronary artery, unspecified whether angina present, unspecified whether [place] or transplanted heart; Angina pectoris (HCC); Pre-operative cardiovascular examination Start: 09-10-2021 End: 09-10-2021 Patient encounter status Jessica Zuñiga MD Work Phone: [facility] Start: 09-06-2021 Orders Only Caitlyn Sam RN [facility] Comment on above: Coronary artery dise ase involving [place] coronary artery, unspecified whether angina present, unspecified whether [place] or transplanted heart (Primary Dx); Angina pectoris (HCC) Start: 08-27-2021 Orders Only Caitlyn Sam RN [facility] Comment on above: Coronary artery dise ase involving [place] coronary artery, unspecified whether angina present, unspecified whether [place] or transplanted heart (Primary Dx); Angina pectoris (HCC); Pre-operative cardiovascular examination Start: 08-27-2021 Patient encounter status Kelly Sam RN [facility] Start: 08-26-2021 ambulatory JESSICA AMAYA Elyssa [facility] Ambulatory Start: 08-23-2021 End: 08-23-2021 [facility] Start: 08-23-2021 End: 08-23-2021 Office outpatient visit 25 minutes Jesisca Zuñiga MD Work Phone: [facility] Comment on above: Angina pectoris (HCC ) (Primary Dx); Coronary artery disease involving [place] coronary artery, unspecified whether angina present, unspecified whether [place] or transplanted heart Start: 07-26-2021 End: 07-26-[address] Pat Bennett [facility] [place] Start: 07-26-2021 End: 07-26-[address] Pat Bennett Work Phone: [facility] Start: 07-03-2021 End: 07-03-2021 Emergency department patient visit Dr. Pat Bennett Work Phone: [facility]Emergency Department Start: 06-15-2021 Rx Renewal Servando Clay DO Work [facility] [place] [address] Work Phone: Start: 03-17-2021 End: 03-17-2021 Emergency department patient visit Mayra Orantes [facility] Emergency 07 Start: 03-03-2021 End: 03-03-2021 ambulatory DEMARCUS Zuniga [facility] Amb[facility] ry Start: 02-24-2021 ambulatory DEMARCUS FREY [facility] Ambulatory Start: 01-14-[address] Vanessa Bennett Work Phone: [facility] Start: 05-28-2020 Patient encounter procedure Servando Clay [facility] Work Phone: Start: 04-07-2020 Patient encounter procedure Servando Clay -[facility] Work Phone: Start: 03-17-2020 Patient encounter procedure Servando Clay -[facility] Work Phone: Start: 02-20-2020 Patient encounter procedure Servando Clay -[facility] Work Phone: Start: 02-11-2020 End: 02-11-2020 Postop follow up visit related to original px Marzena Beltran Work Phone: [facility] Comment on above: S/P carpal tunnel re lease- Rt (Primary Dx) Start: 01-30-2020 End: 01-30-2020 Subsequent hospital visit by physician Bravo Cote Work Phone: [facility] Periop Comment on above: Carpal tunnel syndro me on right Start: 01-21-2020 End: 01-21-2020 Patient encounter procedure Marzena Beltran Work Phone: [facility] Comment on above: Carpal tunnel syndro me, right (Primary Dx); Pre-op testing Start: 01-01-2020 Patient encounter procedure Servando Clay [facility] Work Phone: Start: 12-24-2019 End: 12-24-2019 Office outpatient visit 15 minutes Lele Murray Work Phone: [facility] Orthopedic Comment on above: Chronic right should er pain (Primary Dx) Start: 11-28-2019 Patient encounter procedure Servando Clay [facility] Work Phone: Start: 10-21-2019 Patient encounter procedure Servando Clay [facility] Work Phone: Start: 10-15-2019 End: 10-16-2019 Emergency department patient visit Rashard El Work Phone: [facility] Med Surg Comment on above: Fatigue Start: 10-03-2019 Patient encounter procedure Servando Clay [facility] Work Phone: Start: 06-13-2019 End: 06-13-2019 Subsequent hospital visit by physician Sherwin Cali Work Phone: [facility] Echocardiography Comment on above: Arrived Start: 06-05-2019 End: 06-05-2019 Subsequent hospital visit by physician Sherwin Cali Work Phone: [facility] Echocardiography Comment on above: Arrived Start: 05-30-2019 End: 05-30-2019 Patient encounter procedure Marzena Tarango Dvein Work Phone: [facility] Orthopedics & Sports Medicine Comment on above: Carpal tunnel syndro me of right wrist (Primary Dx) Start: 04-24-2019 Patient encounter procedure Servando Clay [facility] Work Phone: Start: 04-15-2019 End: 04-15-2019 Subsequent hospital visit by physician Lele Murray Work Phone: [facility] Radiology Start: 04-15-2019 End: 04-15-2019 Office outpatient visit 25 minutes Lele Murray Work Phone: [facility] Orthopedics Comment on above: Chronic right should er pain (Primary Dx); Left hip pain Start: 04-03-2019 End: 04-03-2019 Office outpatient new 45 minutes Bravo Cote Work Phone: [facility] Orthopedics Comment on above: Carpal tunnel syndro me of right wrist (Primary Dx); Cubital tunnel syndrome on left Start: 03-15-2019 End: 03-15-2019 Subsequent hospital visit by physician Lele Murray Work Phone: [facility] Radiology Start: 03-15-2019 End: 03-15-2019 Office consultation new/estab patient 60 min Lele Murray Work Phone: [facility] Orthopedics Comment on above: Left hip pain (Prima ry Dx) Start: 03-11-2019 End: 03-11-2019 Patient encounter procedure Other [facility] Information Management Start: 03-04-2019 End: 03-04-2019 Patient encounter procedure Other Other [facility] Information Management Start: 03-04-2019 End: 03-04-2019 Office outpatient visit 25 minutes Bassem Mix Sarahantonia Work Phone: [facility] Rheumatology Comment on above: Gouty arthropathy (P rimary Dx); DDD (degenerative disc disease), cervical; Calcific tendonitis of right shoulder; Bilateral calcaneal spurs; IgG monoclonal gammopathy; Anemia, unspecified type; Personal history of kidney stones; Patient non adherence; Noncompliance; 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; Vitamin D deficiency; Type II diabetes mellitus with neurological manifestations; Hypomagnesemia; Ulnar neuropathy at elbow, left; Fibromyalgia; Carpal tunnel syndrome of right wrist; Thoracic degenerative disc disease; Scoliosis of thoracic spine, unspecified scoliosis type; Primary osteoarthritis, right wrist; Primary osteoarthritis of left knee; Primary osteoarthritis of both hips; Osteoarthritis of lumbar spine, unspecified spinal osteoarthritis complication status; Osteoarthritis of both hands, unspecified osteoarthritis type; Osteoarthritis of both feet, unspecified osteoarthritis type; Osteoarthritis of both acromioclavicular joints; Osteoarthritis of cervical spine, unspecified spinal osteoarthritis complication status; Lumbar degenerative disc disease; Impingement syndrome of both shoulders Start: 01-25-2019 End: 01-25-2019 Letter encounter Provider Racheal [facility] Start: 01-25-2019 End: 01-25-2019 Subsequent hospital visit by physician Vladimir Landon Work Phone: [facility] Ultrasound Comment on above: Arrived Start: 01-24-2019 End: 01-24-2019 Ancillary Orders Vladimir Landon Work Phone: [facility] Central Scheduling Comment on above: Acute renal failure, unspecified acute renal failure type Start: 05-03-2018 End: 05-03-2018 Emergency department patient visit Rashard Gallegos Work Phone: [facility] Emergency Department Start: 04-24-2018 End: 04-24-2018 Patient encounter procedure Other Other [facility] Start: 04-23-2018 End: 04-23-2018 Patient encounter procedure Veronica Carmen [facility] Rheumatology Comment on above: Labs Only Start: 04-19-2018 End: 04-19-2018 Patient encounter procedure Bravo Fernandez Work Phone: [facility] EEG/EMG [place] Start: 03-26-2018 End: 03-26-2018 Patient encounter procedure Vladimir Fishman Work Phone: [facility] Neurology Comment on above: Other Start: 12-17-2016 End: 12-19-[address] Facility:[facility] Patient encounter procedure Servando Clay DO Work Phone: [facility] Work Phone: Procedures Date Procedure Procedure Detail Performing Clinician Start: 09-17-2024 Computed tomography of abdomen and pelvis with intravenous contrast Dr. Denise Uribe MD Work Phone: Start: 06-16-2024 X-ray of chest, PA and lateral views Dr. Denise Uribe MD Work Phone: Start: 06-16-[address] Denise Uribe MD Work Phone: Start: 06-16-2024 Sars-cov-2 Dr. Denise Uribe MD Work Phone: Start: 06-16-[address] Denise Uribe MD Work Phone: Start: 05-21-2024 Measurement of occult blood in stool specimen using immunoassay Dr. Denise Uribe MD Work Phone: Start: 05-21-2024 Plain X-ray abdomen Dr. Denise Uribe MD Work Phone: Start: 05-20-2024 Plain X-ray abdomen Dr. Denise Uribe MD Work Phone: Start: 05-19-2024 Plain X-ray abdomen Dr. Denise Uribe MD Work Phone: Start: 05-18-2024 Plain X-ray abdomen Dr. Denise Uribe MD Work Phone: Start: 05-16-[address] Denise marlow MD Work Phone: Start: 05-16-[address] Denise Uribe MD Work Phone: Start: 05-16-2024 Ova [place] parasites identification Dr. Misael Uribe MD Work Phone: Start: 05-16-[address] Denise Uribe MD Work Phone: Start: 05-16-2024 Plain X-ray abdomen Dr. Denise Uribe MD Work Phone: Start: 05-15-2024 Plain X-ray abdomen Dr. Denise Uribe MD Work Phone: Start: 05-15-2024 Plain X-ray abdomen Dr. Denise Uribe MD Work Phone: Start: 05-14-2024 Plain X-ray abdomen Dr. Denise Uribe MD Work Phone: Start: 05-13-2024 CT of abdomen and pelvis without contrast Dr. Denise Uribe MD Work Phone: Start: 04-22-2024 Cardiovascular stress test using pharmacologic stress agent Dr. Denise Uribe MD Work Phone: Start: 09-11-[address] Denise Uribe Work Phone: Start: 09-11-2023 X-ray of both feet Dr. Denise Uribe Work Phone: Start: 08-17-[address] Denise Uribe Work Phone: Start: 07-11-2023 Plain X-ray of shoulder NEURODIAGNOSTIC TECHNICIAN-C Devi Delgado NEURODIAGNOSTIC TECHNICIAN Work Phone: Start: 03-31-2023 Ultrasonography of breast NEURODIAGNOSTIC TECHNICIAN-C Devi Yode r NEURODIAGNOSTIC TECHNICIAN Work Phone: Start: 12-20-2022 CT of thorax with contrast NEURODIAGNOSTIC TECHNICIAN-C Devi Yod er NEURODIAGNOSTIC TECHNICIAN Work Phone: Start: 12-08-2022 Bilateral mammography NEURODIAGNOSTIC TECHNICIAN-C Devi Delgado NEURODIAGNOSTIC TECHNICIAN Work Phone: Start: 11-28-[address] Pat piper Work Phone: Start: 11-17-2022 Plain chest X-ray Dr. Pat Bennett Work Phone: Start: 09-15-2022 Plain chest X-ray Dr. Pat Bennett Work Phone: Start: 08-15-2022 End: 08-15-2022 EKG impression Mayra Bilderback Start: 08-06-[address] Irma Bennett Work Phone: Start: 08-06-[address] Pat Bennett Work Phone: Start: 08-06-2022 Plain X-ray abdomen Dr. Pat Bennett Work Phone: Start: 08-05-2022 CT of soft tissues of neck with contrast Dr. Pat Bennett Work Phone: Start: 08-05-[address] Pat Bennett Work Phone: Start: 08-05-2022 Plain X-ray abdomen Dr. Pat Bennett Work Phone: Start: 08-04-2022 Plain chest X-ray Dr. Pat Bennett Work Phone: Start: 08-04-2022 Computed tomography of abdomen and pelvis with intravenous contrast Dr. Pat Bennett Work Phone: Start: 08-04-2022 Dr. Pat Bennett Work Phone: Start: 07-20-2022 CT of head without contrast Dr. Pat cohn Work Phone: Start: 03-16-2022 Colonoscopy Servando Clay DO Work Phone: Start: 11-16-2021 Computed tomography of abdomen and pelvis with intravenous contrast Dr. Pat Bennett Work Phone: Start: 11-07-2021 Plain chest X-ray Dr. Pat Bennett Work Phone: Start: 11-07-2021 CT of abdomen and pelvis without contrast Dr. Pat Bennett Work Phone: Start: 09-10-2021 Ecg routine ecg w/least 12 lds w/i&r Jessica Zuñiga MD Work Phone: Start: 07-03-2021 Computed tomography of abdomen and pelvis with intravenous contrast Dr. Pat Bennett Work Phone: Start: 07-03-2021 End: 07-03-2021 Ova OR parasites identification Dr. Irma Bennett Work Phone: Start: 01-01-2020 Immunoassay analyte quantitative nos Servando Clay Start: 12-24-2019 Intra-articular injection Lele Murray Work Phone: Start: 11-28-2019 Basic metabolic 1998 panel - Serum or Plasma Servando Clay Start: 11-28-2019 Hemoglobin glycosylated a1c Servando Clay Start: 11-28-2019 MG Breast screening Servando Clay Start: 10-16-2019 Assay of free thyroxine Yoan Stapleton Work Phone: Start: 10-16-2019 Assay of magnesium Yoan Stapleton Work Phone: Start: 10-16-2019 Assay of thyroid stimulating hormone tsh Yoan Stapleton Work Phone: Start: 10-16-2019 Assay of troponin quantitative Rashard levi Work Phone: Start: 10-16-2019 Complete blood count with white cell differential, automated Yoan Stapleton Work Phone: Start: 10-16-2019 Renal function panel Yoan Stapleton Work Phone: Start: 10-16-2019 Cul prsmptv pthgnc organism scrn w/colony estimj Robles Kapadia Work Phone: Start: 10-15-2019 Glucose blood reagent strip Rashard Legracielao dis Work Phone: Start: 10-15-2019 Assay of troponin quantitative Rashard levi Work Phone: Start: 10-15-2019 CELIAC DISEASE COMPREHENSIVE PANEL Servando Clay Work Phone: Start: 10-15-2019 Urinalysis, reagent strip without microscopy Rashard Gallegos Work Phone: Start: 10-15-2019 Standard ECG Rashard Gallegos Work Phone: Start: 10-15-2019 Diagnostic radiography of chest, combined PA and lateral Rashard Gallegos Work Phone: Start: 10-15-2019 Assay of troponin quantitative Rashard levi Work Phone: Start: 10-15-2019 Complete blood count with white cell differential, automated Rashard Gallegos Work Phone: Start: 10-15-2019 Comprehensive metabolic panel Rashard mcneill Work Phone: Start: 10-15-2019 Assay of troponin quantitative Rashard levi Work Phone: Start: 06-13-2019 Cardiovascular stress test using pharmacologic stress agent Sherwin Emilie Cali Work Phone: Start: 06-05-2019 Doppler ultrasonography of artery of lower limb Sherwin B Viraj Work Phone: Start: 04-15-2019 Intra-articular injection Lele Murray Work Phone: Start: 03-15-2019 Intra-articular injection Lele Murray Work Phone: Start: 01-25-2019 Us pelvic nonobstetric image dcmtn limited/f/u Vladimir Landon Work Phone: Start: 01-25-2019 US scan of abdominal aorta Vladimir Landon Work Phone: Start: 01-25-2019 LABS (OUTSIDE) Historical Provider Start: 05-03-2018 End: 05-03-2018 URINALYSIS, MACRO Rashard Gallegos Work Phone: Start: 05-03-2018 End: 05-03-2018 Assay of lactate Rashard Gallegos Work Phone: Start: 05-03-2018 End: 05-03-2018 Assay of lipase Rashard Gallegos Work Phone: Start: 05-03-2018 End: 05-03-2018 Assay of troponin quantitative Rashard levi Work Phone: Start: 05-03-2018 End: 05-03-2018 BLOOD GAS VENOUS Rashard Gallegos Work Phone: Start: 05-03-2018 End: 05-03-2018 CBC, EDIF, PLATELET Rashard Gallegos Work Phone: Start: 05-03-2018 End: 05-03-2018 Comprehensive metabolic panel Rashard mcneill Work Phone: Start: 05-03-2018 End: 05-03-2018 Ketone bodies serum quantitative Rashard garcia Work Phone: Start: 05-03-2018 End: 05-03-2018 Glucose blood reagent strip Rashard rothman Work Phone: Start: 04-23-2018 End: 04-23-2018 OUTSIDE RADIOLOGY Historical Provider Start: 04-19-2018 End: 04-19-2018 Electromyography Bassem Ding Work Phone: Start: 04-19-2018 End: 04-19-2018 Motor nerve conduction studies Bravo Fernandez Work Phone: Start: 04-19-2018 End: 04-19-2018 Needle emg ea extremity w/paraspinl area limited Bravo Fernandez Work Phone: Start: 02-20-2018 End: 02-20-2018 Colonoscopy Servando Thomae Start: 02-20-2018 Colonoscopy Servando Thomae DO Work Phone: Appendectomy Servando Thomae Cardiac catheterization Servando Thomae Cholecystectomy Servando Thomae Decompression of median nerve Servando Thomae Enteric Bacteriology Dr. Cha Bennett Work Phone: Enteric Bacteriology Dr. Cha Bennett Work Phone: Esophagogastroduodenoscopy D belkis Thomae Hysterectomy Servando Thomae SARS-CoV-2 & FLU Antigen (Rapid) Dr. Pat Bennett Work Phone: SARS-CoV-2 & FLU Antigen (Rapid) Dr. Pat Bennett Work Phone: Dr. Pat gallego Work Phone: Plan of Treatment Date Care Activity Detail Author Start: 02-21-2028 Screening for malignant neoplasm of colon [facility] Start: 03-17-2025 Pneumococcal Vaccine: Age 65+ (2 of 2 - PPSV23) Pneumococcal Vaccine: Age 65+ (2 of 2 - PPSV23) [facility] Start: 03-17-2025 Pneumococcal Vaccine: Age 65+ (3 - PPSV23 or PCV20) Pneumococcal Vaccine: Age 65+ (3 - PPSV23 or PCV20) [facility] Start: 09-17-2024 Hospital admission, emergency, from emergency room, medical nature [facility] Start: 09-17-2024 Admission procedure [facility] Start: 08-07-2024 Iv infusion therapy/prophylaxis /dx 1st to 1 hr [facility] Start: 06-18-2024 Patient discharge [facility] Start: 06-17-2024 [facility] Start: 06-16-2024 Enteric precautions [facility] Start: 06-16-2024 Assessment of risk of venous thromboembolism [facility] Start: 06-16-2024 Care regimes management [facility] Start: 06-16-2024 Fall prevention [facility] Start: 06-16-2024 Incentive spirometry [facility] Start: 06-16-2024 Inhalation therapy procedure [facility] Start: 06-16-2024 Insertion of catheter into peripheral vein [facility] Start: 06-16-2024 Introduction of urinary catheter [facility] Start: 06-16-2024 Measuring intake and output [facility] Start: 06-16-2024 Notification of physician [facility] Start: 06-16-2024 Oxygen therapy [facility] Start: 06-16-2024 Providing care according to standard [facility] Start: 06-16-2024 Provision of activity privileges [facility] Start: 06-16-2024 Referral to occupational therapist [facility] Start: 06-16-2024 Referral to service [facility] Start: 06-16-2024 End: 06-16-2024 [facility] Start: 06-16-2024 End: 06-16-2024 Following clinical pathway protocol [facility] Start: 06-16-2024 Admission procedure [facility] Start: 05-22-2024 Patient discharge [facility] Start: 05-20-2024 Application of intermittent pneumatic compression device [facility] Start: 05-18-2024 [facility] Start: 05-18-2024 Care planning and problem solving actions [facility] Start: 05-17-2024 Referral to occupational therapist [facility] Start: 05-17-2024 Referral to service [facility] Start: 05-17-2024 Care planning and problem solving actions [facility] Start: 05-15-2024 Insertion of nasogastric tube [facility] Start: 05-15-2024 [facility] Start: 05-15-2024 Inhalation therapy procedure [facility] Start: 05-14-2024 [facility] Start: 05-14-2024 Introduction of urinary catheter [facility] Start: 05-14-2024 Referral to general surgeon [facility] Start: 05-14-2024 [facility] Start: 05-13-2024 Following clinical pathway protocol [facility] Start: 05-13-2024 Aspiration precautions [facility] Start: 05-13-2024 Assessment of risk of venous thromboembolism [facility] Start: 05-13-2024 Care regimes management [facility] Start: 05-13-2024 Insertion of catheter into peripheral vein [facility] Start: 05-13-2024 Measuring intake and output [facility] Start: 05-13-2024 Notification of physician [facility] Start: 05-13-2024 Providing care according to standard [facility] Start: 05-13-2024 Provision of activity privileges [facility] Start: 05-13-2024 Referral to occupational therapist [facility] Start: 05-13-2024 Referral to service [facility] Start: 05-13-2024 End: 05-13-2024 [facility] Start: 05-13-2024 Admission procedure [facility] Start: 05-13-2024 Patient referral to dietitian [facility] Start: 09-14-2023 Patient referral [facility] Work Phone: Start: 09-11-2023 [facility] Start: 02-16-2023 Patient referral [facility] Work Phone: Start: 08-15-2022 End: 08-18-2022 Iohexol (Omnipaque 350-Radiology Contrast) . ; (OMNIPAQUE)DOSE = 87.15 mL IntraVenous Push OnceCa.5 mL/Kg/DOSE x 58.1 Kg = 87.15 mL/Dose (Daily Total is 87.15 mL) Start: 15-Aug-2022 End: 17-Aug-2022 Ordered: 15-Aug-2022 Mayra Bridges [facility] Start: 08-08-2022 Patient discharge [facility] Start: 08-07-2022 Care regimes management [facility] Start: 08-07-2022 Notification of physician [facility] Start: 08-07-2022 [facility] Start: 08-05-2022 End: 08-05-2022 [facility] Start: 08-05-2022 Procedures relating to eating and drinking [facility] Start: 08-04-2022 Application of intermittent pneumatic compression device [facility] Start: 08-04-2022 Assessment of risk of venous thromboembolism [facility] Start: 08-04-2022 Care regimes management [facility] Start: 08-04-2022 Inhalation therapy procedure [facility] Start: 08-04-2022 Insertion of catheter into peripheral vein [facility] Start: 08-04-2022 Notification of physician [facility] Start: 08-04-2022 Providing care according to standard [facility] Start: 08-04-2022 Provision of activity privileges [facility] Start: 08-04-2022 Referral to general surgeon [facility] Start: 08-04-2022 [facility] Start: 08-04-2022 Following clinical pathway protocol [facility] Start: 08-04-2022 Verification routine [facility] Start: 08-04-2022 Admission procedure [facility] Start: 04-11-2022 Patient referral [facility] Work Phone: Start: 03-28-2022 [facility] Work Phone: Start: 02-17-2022 FUV, Provider: Servando Clay, Status: Pen, Time: 3:45 PM FUV, Provider: Servando Clay, Status: Pen, Time: 3:45 PM [facility] Gastroenterology-[address] Work Phone: Start: 02-08-2022 Patient referral [facility] Work Phone: Start: 11-11-2021 [facility] Work Phone: Start: 11-10-2021 Patient discharge [facility] Work Phone: Start: 11-09-2021 [facility] Work Phone: Start: 11-09-2021 Following clinical pathway protocol [facility] Work Phone: Start: 11-08-2021 End: 11-09-2021 [facility] Work Phone: Start: 11-08-2021 Care regimes management [facility] Work Phone: Start: 11-08-2021 Notification of physician [facility] Work Phone: Start: 11-07-2021 Assessment of risk of venous thromboembolism [facility] Work Phone: Start: 11-07-2021 Care regimes management [facility] Work Phone: Start: 11-07-2021 Insertion of catheter into peripheral vein [facility] Work Phone: Start: 11-07-2021 Providing care according to standard [facility] Work Phone: Start: 11-07-2021 Provision of activity privileges [facility] Work Phone: Start: 11-07-2021 Referral to general surgeon [facility] Work Phone: Start: 11-07-2021 [facility] Work Phone: Start: 11-07-2021 Verification routine [facility] Work Phone: Start: 11-07-2021 Admission procedure [facility] Work Phone: Start: 11-07-2021 [facility] Work Phone: Start: 09-15-2021 End: 09-15-2021 Admission to same day surgery center 09/15/2021 Surgery Cardiology Jessica Zuñiga MD [address] [facility] [address] [place] [address] Left Heart Cath [facility] Photographic Artist Comment on above: Left Heart Cath Start: 09-15-2021 Subsequent hospital visit by physician 09/15/2021 Hospital Encounter Jessica Zuñiga MD [address] [facility] [address] [place] [address] [facility] Procedural Care Unit Start: 09-10-2021 End: 09-10-2021 Clinical Support 09/10/2021 Clinical Support Cardiology Jessica Zuñiga MD [address] [facility] [address] [place] [address] [facility] Start: 09-02-2021 End: 09-02-2021 Admission to same day surgery center 09/02/2021 Surgery Cardiology Jessica Zuñiga MD [address] [facility] [address] [place] [address] Left Heart Cath Possbile PTCA/Stent [facility] Photographic Artist Comment on above: Left Heart Cath Possbile PTCA/Stent Start: 09-02-2021 Subsequent hospital visit by physician 09/02/2021 Hospital Encounter Jessica Zuñiga MD [address] [facility] [address] [place] [address] [facility] Procedural Care Unit Start: 08-31-2021 End: 08-31-2021 Clinical Support 08/31/2021 Clinical Support Cardiology Jessica Zuñiga MD [address] [facility] [address] [place] [address] [facility] Start: 08-30-2021 End: 08-27-2022 Basic metabolic 2000 panel - Serum or Plasma Basic Metabolic Panel Lab Routine Coronary artery disease involving [place] coronary artery, unspecified whether angina present, unspecified whether [place] or transplanted heart Angina pectoris (HCC) Pre-operative cardiovascular examination Expected: 08/30/2021, Expires: 08/27/2022 [facility] Work Phone: Comment on above: Expected: 08/30/2021, Expires: Start: 07-29-2021 Patient referral [facility] Work Phone: Start: 07-26-2021 Patient referral [facility] Work Phone: Start: 2021 Fall risk assessment Falls Risk Assessment [facility] Start: 01-22-2021 Potassium [Moles/Vol] POTASSIUM [facility] Start: 10-15-2020 Potassium [Moles/Vol] POTASSIUM [facility] Start: 10-15-2020 TSH Qn TSH [facility] Start: 05-30-2020 Hemoglobin A1c measurement A1C [facility] Start: 04-29-2020 End: 04-29-2020 Office Visit 04/29/2020 Office Visit Cardiovascular Medicine Sherwin Cali II, MD [address] [place] [address] [phone] [facility] Start: 02-11-2020 End: 02-11-2020 Office Visit 02/11/2020 Office Visit Orthopaedics Marzena Beltran PADarielC [address] [place] [address] [phone] [facility] Orthopedics & Sports Medicine Start: 02-05-2020 End: 02-05-2020 Office Visit 02/05/2020 Office Visit Cardiovascular Medicine Sherwin Cali II, MD [address] [place] [address] [facility] Start: 01-30-2020 End: 01-30-2020 Hospital Encounter [facility] Periop Comment on above: Carpal tunnel syndrome on right DECOMPRESSION TRANSP OSITION MEDIAN NERVE RIGHT Start: 01-28-2020 End: 01-28-2020 Office Visit 01/28/2020 Office Visit Orthopaedics Lele Murray, DO [address] [place] [address] [phone] [facility] Orthopedics Start: 01-23-2020 End: 01-23-2020 Pre-Operative Nurse Assessment [facility] Pre Admission Start: 01-21-2020 Influenza vaccination [facility] Start: 01-21-2020 End: 01-21-2020 Office Visit 01/21/2020 Office Visit Orthopaedics Marzena Beltran PA-C [address] [place] [address] [phone] [facility] Orthopedics & Sports Medicine Start: 01-15-2020 End: 01-14-2021 NOVEL CORONAVIRUS- NASOPHARYNGEAL NOVEL CORONAVIRUS- NASOPHARYNGEAL Microbiology STAT Pre-op testing Expected: 01/15/2020, Expires: 01/14/2021 [facility] Comment on above: Expected: 01/15/2020, Expires: Start: 07-04-2019 End: 07-04-2019 Office Visit 07/04/2019 Office Visit Cardiovascular Medicine Sherwin Cali II, MD [address] [place] [address] [facility] Start: 06-20-2019 End: 06-20-2019 Office Visit 06/20/2019 Office Visit Orthopaedics Lele Murray, DO [address] [place] [address] [phone] [facility] Orthopedics Start: 06-20-2019 End: 06-20-2019 Office Visit 06/20/2019 Office Visit Orthopaedics Marzena Beltran PA-C [address] [place] [address] [phone] [facility] Orthopedics & Sports Medicine Start: 06-13-2019 End: 06-13-2019 Appointment 06/13/2019 Appointment Cardiovascular Medicine Sherwin Cali II, MD [address] [place] [address] [facility] Echocardiography Start: 06-06-2019 End: 06-06-2019 Procedure Pass [facility] Periop Comment on above: Carpal tunnel syndrome on right DECOMPRESSION TRANSP OSITION MEDIAN NERVE Start: 05-31-2019 End: 05-31-2019 Office Visit 05/31/2019 Office Visit Cardiovascular Medicine Sherwin Cali II, MD [address] [facility] [place] [address] [facility] Start: 04-15-2019 End: 04-15-2019 Office Visit 04/15/2019 Office Visit Orthopaedics Lele Murray, [address] [place] [address] [phone] [facility] Orthoped[facility] Start: 04-03-2019 End: 04-03-2019 Office Visit 04/03/2019 Office Visit Orthopaedics Bravo Cote MD [address] [place] [address] [phone] [facility] Orthoped[facility] Start: 03-29-2019 End: 03-29-2019 Office Visit 03/29/2019 Office Visit Orthopaedics Lele Murray, DO [address] [place] [address] [phone] [facility] Orthoped[facility] Start: 03-15-2019 End: 03-13-2020 Skeletal X-ray of pelvis and hip [facility] Comment on above: 1 Occurrences starting 03/15/2019 until 03/15/2019 Expected: 03/15/2019 , Expires: 03/13/2020 Start: 03-15-2019 End: 03-15-2019 Office Visit 03/15/2019 Office Visit Orthopaedics Lele Murray, [address] [place] [address] [place] [address] [facility] Start: 03-04-2019 End: 03-04-2019 Office Visit 03/04/2019 Office Visit Rheumatology Timur Naranjo, Bassem Mix, DO [address] [place] [address] [phone] [facility] Rheumatology Start: 02-26-2019 Thyrotropin Qn TSH [facility] Work Phone: Start: 01-25-2019 End: 01-25-2019 Hospital Encounter [facility] Ultrasound Comment on above: Arrived Start: 01-20-2019 Influenza vaccination INFLUENZA VACCINE (#1) [facility] Start: 04-19-2018 End: 04-19-2018 Ambulatory [facility] EEG/EMG [place] Start: 01-20-2018 Influenza vaccination INFLUENZA VACCINE (#1) [facility] Work Phone: Start: 2006 Administration of herpes zoster vaccine Zoster Vaccines (1 of 2) [facility] Start: 2006 Colonoscopy [facility] Start: 2006 Protein mass conc COLON CANCER SCREENING DISCUSSION [facility] Work Phone: Start: 2006 Screening for malignant neoplasm of colon [facility] Start: 2006 Zoster vaccine hzv live for subcutaneous use ZOSTER (SHINGLES) VACCINE (1 of 2) [facility] Start: 1996 Fasting lipid profile LIPID SCREENING [facility] Work Phone: Start: 1996 Protein mass conc MAMMOGRAM SCREENING DISCUSSION [facility] Work Phone: Start: 1996 Screening for malignant neoplasm of breast Mammogram [facility] Start: 1996 Screening mammography MAMMOGRAM SCREENING DISCUSSION [facility] Start: 1977 Screening for malignant neoplasm of cervix [facility] Work Phone: Start: 1975 Third diphtheria, tetanus and acellular pertussis (DTaP) vaccination TDAP (ADULT) [facility] Work Phone: Start: 1974 Hepatitis C screening Hepatitis C Screening [facility] Start: 1974 Tetanus vaccination TETANUS [facility] Work Phone: Start: 1971 HIV screening HIV Screening [facility] Start: 1969 HIV screening HIV SCREENING DISCUSSION [facility] Work Phone: Start: 1968 Depression screening using PHQ-9 (Patient Health Questionnaire 9) score Depression Screening (PHQ-2/9) [facility] Start: 1966 Diabetic foot examination Foot Exam [facility] Start: 1966 Microalbumin measurement, urine, quantitative Urine Microalbumin [facility] Start: 1966 Ophthalmic examination and evaluation Ophthalmology Exam [facility] Start: 1959 History and physical examination, annual for health maintenance Wellness Visit [facility] Start: 1956 Hepatitis C antibody, confirmatory test HEPATITIS C VIRUS SCREENING [facility] Work Phone: Start: 1956 Screening for osteoporosis Dexa Scan [facility] Start: 1956 Tetanus vaccination Tetanus: Every 10yrs [facility] End: 08-27-2022 12 lead ECG ECG 12 Lead ECG Routine Coronary artery disease involving [place] coronary artery, unspecified whether angina present, unspecified whether [place] or transplanted heart Angina pectoris (HCC) Pre-operative cardiovascular examination 1 Occurrences starting 08/27/2021 until 08/27/2022 [facility] Comment on above: 1 Occurrences starting 08/27/2021 until 08/27/[address] [facility] End: 08-27-2022 CBC panel - Blood by Automated count CBC Lab Routine Coronary artery disease involving [place] coronary artery, unspecified whether angina present, unspecified whether [place] or transplanted heart Angina pectoris (HCC) Pre-operative cardiovascular examination 1 Occurrences starting 08/27/2021 until 08/27/2022 [facility] Comment on above: 1 Occurrences starting 08/27/2021 until 08/27/2022 CELIAC DISEASE COMPREHENSIVE PANEL CELIAC DISEASE COMPREHENSIVE PANEL Lab Routine 10/15/2019 3:27 PM [facility] Complete blood count [facility] H/O: hysterectomy History of hysterectomy [facility] Hemoglobin A1c/Hemoglobin.total in Blood [facility] History of appendectomy History of appendectomy [facility] History of cholecystectomy History of cholecystectomy [facility] History of colonoscopy History of colonoscopy [facility] History of decompression of median nerve History of carpal tunnel release [facility] History of placement of stent for coronary artery disease History of coronary artery stent placement [facility] [facility] - 24 HOUR [facility] - 24 HOUR ECG Routine Abnormal electrocardiogram Atrial premature contractions Palpitations Ordered: 05/31/2019 [employer] Comment on above: Ordered: 05/31/2019 End: 08-27-2022 INR in Platelet poor plasma by Coagulation assay PT/INR Lab Routine Coronary artery disease involving [place] coronary artery, unspecified whether angina present, unspecified whether [place] or transplanted heart Angina pectoris (HCC) Pre-operative cardiovascular examination 1 Occurrences starting 08/27/2021 until 08/27/2022 [facility] Comment on above: 1 Occurrences starting 08/27/2021 until 08/27/2022 Measurement of respiratory function [facility] Work Phone: Past history of procedure History of esophagogastroduodenoscopy (EGD) [facility] Patient Education [facility] Work Phone: Patient referral [facility] Work Phone: Radiography of shoulder XR SHOULDER RIGHT MIN 2 VIEWS Imaging Routine Chronic right shoulder pain 04/15/2019 1:48 PM [employer] Skeletal X-ray of pelvis and hip XR HIP WITH PELVIS LEFT Imaging Routine Left hip pain 03/15/2019 2:02 PM EDT [employer] Standard ECG ECG ECG STAT 2:35 PM [employer] Therapeutic px 1/> areas each 15 min exercises AL THERAPEUTIC EXERCISES, EA 15 MIN AL Charge Routine Chronic right shoulder pain Ordered: 12/24/2019 [employer] Comment on above: Ordered: 12/24/2019 Tobacco use cessation education [facility] Tobacco use cessation education [facility] Tobacco use cessation education [facility] Transthoracic echocardiography ECHOCARDIOGRAM Echocardiography Routine Pre-operative clearance Atherosclerosis of [place] coronary artery of [place] heart, angina presence unspecified Old myocardial infarction Mitral valve prolapse Abnormal electrocardiogram Precordial pain 06/05/2019 2:46 PM EST [employer] [facility] Work Phone: [facility] NEGATED: Highlighted row has been ruled out! Planned Goals not documented [facility] Work Phone: Immunizations Immunization Date Immunization Notes Care Provider Ranulfo duvall 02-19-2024 Seasonal trivalent influenza vaccine, adjuvanted, preservative free Dr. Denise Uribe MD Work Phone: [facility] 06-30-2023 RSV Adult BiValent (Abrysvo) NEURODIAGNOSTIC TECHNICIAN-C Devi Delgado NEURODIAGNOSTIC TECHNICIAN Work Phone: [facility] 06-28-2023 Influenza High-Dose Quadrivalent NEURODIAGNOSTIC TECHNICIAN-C Devi Delgado NEURODIAGNOSTIC TECHNICIAN Work Phone: [facility] 06-28-2023 Pfizer Covid-19 (Comirnaty) NEURODIAGNOSTIC TECHNICIAN-C Devi Delgado NEURODIAGNOSTIC TECHNICIAN Work Phone: [facility] 01-24-2023 tetanus toxoid, redu dominick diphtheria toxoid, and acellular pertussis vaccine, adsorbed NEURODIAGNOSTIC TECHNICIAN-C Devi Delgado NEURODIAGNOSTIC TECHNICIAN Work Phone: [facility] 01-03-2023 zoster vaccine recombinant NEURODIAGNOSTIC TECHNICIAN-C Devi Delgado NEURODIAGNOSTIC TECHNICIAN Work Phone: [facility] 05-04-2022 Covid Pfizer Bivalen t Booster NEURODIAGNOSTIC TECHNICIAN-C Devi Delgado NEURODIAGNOSTIC TECHNICIAN Work Phone: [facility] 05-04-2022 zoster vaccine recombinant NEURODIAGNOSTIC TECHNICIAN-C Devi Delgado NEURODIAGNOSTIC TECHNICIAN Work Phone: [facility] 03-01-2022 influenza, injectabl e, quadrivalent, preservative free NEURODIAGNOSTIC TECHNICIAN-C Devi Delgado NEURODIAGNOSTIC TECHNICIAN Work Phone: [facility] 03-01-2022 influenza, seasonal, injectable Dr. Pat Bennett Work Phone: [facility] 05-07-2021 Covid (Pfizer) Dr. Pat post Work Phone: [facility] 05-07-2021 influenza, injectabl e, quadrivalent, preservative free NEURODIAGNOSTIC TECHNICIAN-C Devi Delgado NEURODIAGNOSTIC TECHNICIAN Work Phone: [facility] 05-07-2021 influenza, seasonal, injectable Dr. Pat Bennett Work Phone: [facility] 09-19-2020 Pfizer SARS-CoV-2 Vaccination Caitlyn Sam RN [facility] 08-28-2020 Pfizer SARS-CoV-2 Vaccination Caitlyn Sam RN [facility] 07-16-2020 pneumococcal conjuga te vaccine, [address] Pat Bennett Work Phone: [facility] 07-16-2020 pneumococcal vaccine , unspecified formulation Dr. Pat Bennett Work Phone: [facility] Work Phone: 03-17-2020 influenza, injectabl e, quadrivalent, preservative free [facility] Comment on above: Series: 03-17-2020 pneumococcal polysaccharide vaccine, 23 valent [facility] Comment on above: Series: 02-17-[address] Pat Bennett Work Phone: [facility] 04-03-2017 influenza, injectabl e, quadrivalent, preservative free NEURODIAGNOSTIC TECHNICIAN-C Devi Delgado NEURODIAGNOSTIC TECHNICIAN Work Phone: [facility] 04-03-2017 influenza virus vacc ine, unspecified formulation Vladimir Fishman [facility] Work Phone: 03-08-1991 TD(adult) unspecifie d formulation NEURODIAGNOSTIC TECHNICIAN-C Devi Delgado NEURODIAGNOSTIC TECHNICIAN Work Phone: [facility] Payers Date Payer Category Payer Self-pay [id number] 2020 Medicare [facility] MANAGED [facility] DUAL COMPLETE (HMO SNP) [id number] 2020-Present [phone] [address] [address] [place] [address] [id number] 2020 Medicare [id number] 2018 Medicaid MEDICAID MEDICAI D [id number] 2018-Present [id number] 2018 Medicaid MEDICAID MEDICAI D [id number] 2018-Present [id number] .[id number] 2017 Medicare MEDICARE UHC HMO MEDICARE UHC HMO xxxxxxxxx 2017-Present xxxxxxxxx [id number] 2017 Medicare MEDICARE UHC HMO MEDICARE UHC HMO [id number] 2017-Present [id number] .[id number] 2017 Medicaid [id number] 1955 Unknown [id number] 2.0.1.844471.3.579.2.9 03 1956 Unknown [id number] 2.840.1.194637.3.579.2.9 02 1956 Unknown [id number] 2.840.1.917529.3.579.2.9 02 1956 Unknown [id number] .0.1.132602.3.579.2.9 03 1956 Unknown [id number] 2.16840.1.545292.3.579.2.9 03 1956 Unknown [id number] 2.16840.1.872771.3.579.2.9 03 1956 Unknown [id number] 2.16840.1.943356.3.579.2.9 03 1956 Unknown [id number] 2.840.1.941730.3.579.2.9 03 1956 Unknown [id number] 2.16.840.1.144127.3.579.2.3 56 1956 Unknown [id number] 2.16.840.1.130852.3.579.2.3 56 1956 Unknown [id number] 2.16.840.1.894025.3.579.2.1 069 1955 Unknown [id number] 2.16.840.1.028538.3.579.2.1 069 Medicare [id number] Unknown Unknown [id number] 2.16.840.1.408058.3.579.2.4 62 Unknown [id number] 2.16.840.1.616632.3.579.2.4 62 Unknown [id number] 2.16.840.1.188211.3.579.2.4 62 Unknown [id number] 2.16.840.1.477885.3.579.2.4 62 Unknown [id number] 2.16.840.1.158303.3.579.2.4 62 Unknown [id number] 2.16.840.1.254569.3.579.2.4 62 Unknown [id number] 2.16.840.1.659091.3.579.2.4 62 Unknown [id number] 2.16.840.1.358260.3.579.2.4 62 Unknown [id number] 2.16.840.1.186376.3.579.2.4 62 Unknown [id number] 2.16.840.1.015016.3.579.2.4 62 Unknown [id number] 2.16.840.1.699863.3.579.2.4 62 Unknown [id number] 2.16.840.1.290535.3.579.2.4 62 Unknown [id number] 2.16.840.1.634158.3.579.2.4 62 Unknown [id number] 2.16.840.1.280032.3.579.2.4 62 Unknown [id number] 2.16.840.1.561767.3.579.2.4 62 Unknown [id number] 2.16.840.1.059021.3.579.2.4 62 Unknown [id number] 2.16.840.1.367820.3.579.2.4 62 Unknown [id number] 2.16.840.1.208117.3.579.2.4 62 Unknown [id number] 2.16.840.1.090398.3.579.2.4 62 Unknown [id number] 2.16.840.1.270908.3.579.2.4 62 Unknown [id number] 2.16.840.1.426744.3.579.2.4 62 Unknown [id number] 2.16.840.1.840408.3.579.2.4 62 Unknown [id number] 2.16.840.1.415477.3.579.2.4 62 Unknown [id number] 2.16.840.1.916091.3.579.2.4 62 Unknown [id number] 2.16.840.1.360856.3.579.2.4 62 Unknown [id number] 2.16.840.1.261288.3.579.2.4 62 Unknown [id number] 2.16.840.1.717782.3.579.2.4 62 Unknown [id number] 2.16.840.1.607962.3.579.2.4 62 Unknown [id number] 2.16.840.1.102234.3.579.2.4 62 Unknown [id number] 2.16.840.1.215411.3.579.2.4 62 Unknown [id number] 2.16.840.1.625401.3.579.2.4 62 Unknown [id number] 2.16.840.1.000495.3.579.2.4 62 Unknown [id number] 2.16.840.1.948617.3.579.2.4 62 Unknown [id number] 2.16.840.1.083865.3.579.2.4 62 Unknown [id number] 2.16.840.1.422387.3.579.2.4 62 Unknown [id number] 2.16.840.1.522845.3.579.2.4 62 Unknown [id number] 2.16.840.1.092626.3.579.2.4 62 Unknown [id number] 2.16.840.1.963760.3.579.2.4 62 Unknown [id number] 2.16.840.1.364789.3.579.2.4 62 Unknown [id number] 2.16.840.1.438238.3.579.2.4 62 Unknown [id number] 2.16.840.1.393750.3.579.2.4 62 Unknown [id number] 2.16.840.1.314361.3.579.2.4 62 Unknown [id number] 2.16.840.1.136808.3.579.2.4 62 Unknown [id number] 2.16.840.1.878613.3.579.2.4 62 Unknown [id number] 2.16.840.1.621952.3.579.2.4 62 Unknown [id number] 2.16.840.1.562193.3.579.2.4 62 Unknown [id number] 2.16.840.1.820591.3.579.2.4 62 Unknown [id number] 2.16.840.1.882377.3.579.2.4 62 Unknown [id number] 2.16.840.1.925617.3.579.2.4 62 Unknown [id number] 2.16.840.1.762237.3.579.2.4 62 Unknown [id number] 2.16.840.1.306343.3.579.2.4 62 Unknown [id number] 2.16.840.1.458081.3.579.2.4 62 Unknown [id number] 2.16.840.1.558848.3.579.2.4 62 Unknown [id number] 2.16.840.1.905175.3.579.2.4 62 Unknown [id number] 2.16.840.1.900921.3.579.2.4 62 Unknown [id number] 2.16.840.1.570088.3.579.2.4 62 Unknown [id number] 2.16.840.1.043624.3.579.2.4 62 Social History Date Type Detail Facility Start: 02-26-2018 End: 09-17-2024 Tobacco smoking status NHIS Current every day smoker [facility] Work Phone: Start: 1955 Sex Assigned At Not on file [facility] Work Phone: History of tobacco use Cigarette Smoker [employer] Start: 05-30-2019 End: 10-15-2019 Alcohol intake Ex-drinker (finding) [employer] Start: 12-24-2019 End: 08-23-2021 Tobacco use and exposure Never used [facility] [employer] Start: 08-12-2021 End: 09-10-2021 Exposure to SARS-CoV-2 (event) Not sure [employer] Start: 01-30-2020 End: 08-23-2021 Cigarettes smoked current (pack per day) - Reported [facility] Start: 10-12-2021 End: 09-11-2023 Tobacco smoking consumption unknown [facility] Start: 08-23-2021 Alcohol intake Lifetime non-d miguel (finding) [facility] Start: 05-23-2020 None [facility] Start: 05-23-2020 With Family [facility] Start: 07-31-2020 Cigarettes [facility] Start: 1955 Sex Assigned At Female [facility] Start: 08-06-2024 End: 09-17-2024 Sex Female (finding) [facility] NEGATED: Highlighted row - - [facility] Work Phone: NEGATED: Highlighted row [facility] Medical Equipment Procedure Code Equipment Code Equipment Origin al Text Equipment Identifier Dates Blood Sugar Diagnostic (Onetouch Verio Test Strips) strip Start: 11-12-2020 Lancets (Onetouc h Ultrasoft Lancets) misc Start: 11-12-2020 Pen Needle, Diab etic (Lite Touch Insulin Pen [place]) 31 gauge x 5/16 needle Start: 08-31-2020 Blood Sugar Diagnostic (Blood Glucose Test) strip Start: 08-31-2020 End: 09-03-2020 Blood Sugar Diagnostic (Blood Glucose Test) strip Start: 09-03-2020 End: 11-11-2020 Blood Sugar Diagnostic (Onetouch Verio Test Strips) strip Start: 11-11-2020 End: 11-12-2020 Blood Sugar Diagnostic (Onetouch Verio Test Strips) strip Start: 11-12-2020 End: 11-12-2020 Lancets (Onetouc h Ultrasoft Lancets) misc Start: 11-11-2020 End: 11-12-2020 Lancets (Onetouc h Ultrasoft Lancets) misc Start: 11-12-2020 End: 11-12-2020 Blood Sugar Diagnostic (Onetouch Verio Test Strips) strip Start: 11-12-2020 Lancets (Onetouc h Ultrasoft Lancets) misc Start: 11-12-2020 Pen Needle, Diab etic (Lite Touch Insulin Pen [place]) 31 gauge x 5/16 needle Start: 11-05-2021 Blood Sugar Diagnostic (Blood Glucose Test) strip Start: 08-31-2020 End: 09-03-2020 Blood Sugar Diagnostic (Blood Glucose Test) strip Start: 09-03-2020 End: 11-11-2020 Blood Sugar Diagnostic (Onetouch Verio Test Strips) strip Start: 11-11-2020 End: 11-12-2020 Blood Sugar Diagnostic (Onetouch Verio Test Strips) strip Start: 11-12-2020 End: 11-12-2020 Lancets (Onetouc h Ultrasoft Lancets) misc Start: 11-11-2020 End: 11-12-2020 Lancets (Onetouc h Ultrasoft Lancets) misc Start: 11-12-2020 End: 11-12-2020 Pen Needle, Diab etic (Lite Touch Insulin Pen [place]) 31 gauge x 5/16 needle Start: 08-31-2020 End: 11-05-2021 Blood Sugar Diagnostic (Onetouch Verio Test Strips) strip Start: 11-12-2020 Lancets (Onetouc h Ultrasoft Lancets) misc Start: 11-12-2020 Pen Needle, Diab etic (Lite Touch Insulin Pen [place]) 31 gauge x 5/16 needle Start: 11-05-2021 Blood Sugar Diagnostic (Blood Glucose Test) strip Start: 08-31-2020 End: 09-03-2020 Blood Sugar Diagnostic (Blood Glucose Test) strip Start: 09-03-2020 End: 11-11-2020 Blood Sugar Diagnostic (Onetouch Verio Test Strips) strip Start: 11-11-2020 End: 11-12-2020 Blood Sugar Diagnostic (Onetouch Verio Test Strips) strip Start: 11-12-2020 End: 11-12-2020 Lancets (Onetouc h Ultrasoft Lancets) misc Start: 11-11-2020 End: 11-12-2020 Lancets (Onetouc h Ultrasoft Lancets) misc Start: 11-12-2020 End: 11-12-2020 Pen Needle, Diab etic (Lite Touch Insulin Pen [place]) 31 gauge x 5/16 needle Start: 08-31-2020 End: 11-05-2021 Blood Sugar Diagnostic (Onetouch Verio Test Strips) strip Start: 11-12-2020 Lancets (Onetouc h Ultrasoft Lancets) misc Start: 11-12-2020 Pen Needle, Diab etic (Lite Touch Insulin Pen [place]) 31 gauge x 5/16 needle Start: 11-10-2021 Blood Sugar Diagnostic (Blood Glucose Test) strip Start: 08-31-2020 End: 09-03-2020 Blood Sugar Diagnostic (Blood Glucose Test) strip Start: 09-03-2020 End: 11-11-2020 Blood Sugar Diagnostic (Onetouch Verio Test Strips) strip Start: 11-11-2020 End: 11-12-2020 Blood Sugar Diagnostic (Onetouch Verio Test Strips) strip Start: 11-12-2020 End: 11-12-2020 Lancets (Onetouc h Ultrasoft Lancets) misc Start: 11-11-2020 End: 11-12-2020 Lancets (Onetouc h Ultrasoft Lancets) misc Start: 11-12-2020 End: 11-12-2020 Pen Needle, Diab etic (Lite Touch Insulin Pen [place]) 31 gauge x 5/16 needle Start: 08-31-2020 End: 11-05-2021 Pen Needle, Diab etic (Lite Touch Insulin Pen [place]) 31 gauge x 5/16 needle Start: 11-05-2021 End: 11-10-2021 Blood Sugar Diagnostic (Onetouch Verio Test Strips) strip Start: 11-12-2020 Lancets (Onetouc h Ultrasoft Lancets) misc Start: 11-12-2020 Pen Needle, Diab etic (Lite Touch Insulin Pen [place]) 31 gauge x 5/16 needle Start: 11-10-2021 Blood Sugar Diagnostic (Blood Glucose Test) strip Start: 08-31-2020 End: 09-03-2020 Blood Sugar Diagnostic (Blood Glucose Test) strip Start: 09-03-2020 End: 11-11-2020 Blood Sugar Diagnostic (Onetouch Verio Test Strips) strip Start: 11-11-2020 End: 11-12-2020 Blood Sugar Diagnostic (Onetouch Verio Test Strips) strip Start: 11-12-2020 End: 11-12-2020 Lancets (Onetouc h Ultrasoft Lancets) misc Start: 11-11-2020 End: 11-12-2020 Lancets (Onetouc h Ultrasoft Lancets) misc Start: 11-12-2020 End: 11-12-2020 Pen Needle, Diab etic (Lite Touch Insulin Pen [place]) 31 gauge x 5/16 needle Start: 08-31-2020 End: 11-05-2021 Pen Needle, Diab etic (Lite Touch Insulin Pen [place]) 31 gauge x 5/16 needle Start: 11-05-2021 End: 11-10-2021 Blood Sugar Diagnostic (Onetouch Verio Test Strips) strip Start: 11-12-2020 Lancets (Onetouc h Ultrasoft Lancets) misc Start: 11-12-2020 Pen Needle, Diab etic (Lite Touch Insulin Pen [place]) 31 gauge x 5/16 needle Start: 11-10-2021 Blood Sugar Diagnostic (Blood Glucose Test) strip Start: 08-31-2020 End: 09-03-2020 Blood Sugar Diagnostic (Blood Glucose Test) strip Start: 09-03-2020 End: 11-11-2020 Blood Sugar Diagnostic (Onetouch Verio Test Strips) strip Start: 11-11-2020 End: 11-12-2020 Blood Sugar Diagnostic (Onetouch Verio Test Strips) strip Start: 11-12-2020 End: 11-12-2020 Lancets (Onetouc h Ultrasoft Lancets) misc Start: 11-11-2020 End: 11-12-2020 Lancets (Onetouc h Ultrasoft Lancets) misc Start: 11-12-2020 End: 11-12-2020 Pen Needle, Diab etic (Lite Touch Insulin Pen [place]) 31 gauge x 5/16 needle Start: 08-31-2020 End: 11-05-2021 Pen Needle, Diab etic (Lite Touch Insulin Pen [place]) 31 gauge x 5/16 needle Start: 11-05-2021 End: 11-10-2021 Blood Sugar Diagnostic (Onetouch Verio Test Strips) strip Start: 11-12-2020 Lancets (Onetouc h Ultrasoft Lancets) misc Start: 11-12-2020 Pen Needle, Diab etic (Lite Touch Insulin Pen [place]) 31 gauge x 5/16 needle Start: 11-10-2021 Blood Sugar Diagnostic (Blood Glucose Test) strip Start: 08-31-2020 End: 09-03-2020 Blood Sugar Diagnostic (Blood Glucose Test) strip Start: 09-03-2020 End: 11-11-2020 Blood Sugar Diagnostic (Onetouch Verio Test Strips) strip Start: 11-11-2020 End: 11-12-2020 Blood Sugar Diagnostic (Onetouch Verio Test Strips) strip Start: 11-12-2020 End: 11-12-2020 Lancets (Onetouc h Ultrasoft Lancets) misc Start: 11-11-2020 End: 11-12-2020 Lancets (Onetouc h Ultrasoft Lancets) misc Start: 11-12-2020 End: 11-12-2020 Pen Needle, Diab etic (Lite Touch Insulin Pen [place]) 31 gauge x 5/16 needle Start: 08-31-2020 End: 11-05-2021 Pen Needle, Diab etic (Lite Touch Insulin Pen [place]) 31 gauge x 5/16 needle Start: 11-05-2021 End: 11-10-2021 Blood Sugar Diagnostic (Onetouch Verio Test Strips) strip Start: 11-12-2020 Lancets (Onetouc h Ultrasoft Lancets) misc Start: 11-12-2020 Pen Needle, Diab etic (Lite Touch Insulin Pen [place]) 31 gauge x 5/16 needle Start: 11-10-2021 Blood Sugar Diagnostic (Blood Glucose Test) strip Start: 08-31-2020 End: 09-03-2020 Blood Sugar Diagnostic (Blood Glucose Test) strip Start: 09-03-2020 End: 11-11-2020 Blood Sugar Diagnostic (Onetouch Verio Test Strips) strip Start: 11-11-2020 End: 11-12-2020 Blood Sugar Diagnostic (Onetouch Verio Test Strips) strip Start: 11-12-2020 End: 11-12-2020 Lancets (Onetouc h Ultrasoft Lancets) misc Start: 11-11-2020 End: 11-12-2020 Lancets (Onetouc h Ultrasoft Lancets) misc Start: 11-12-2020 End: 11-12-2020 Pen Needle, Diab etic (Lite Touch Insulin Pen [place]) 31 gauge x 5/16 needle Start: 08-31-2020 End: 11-05-2021 Pen Needle, Diab etic (Lite Touch Insulin Pen [place]) 31 gauge x 5/16 needle Start: 11-05-2021 End: 11-10-2021 Blood Sugar Diagnostic (Onetouch Verio Test Strips) strip Start: 11-12-2020 Lancets (Onetouc h Ultrasoft Lancets) misc Start: 11-12-2020 Pen Needle, Diab etic (Bd Ultra-Fine Sophia Pen Needle) 32 gauge x 5/32 needle Start: 02-07-2022 Pen Needle, Diab etic (Lite Touch Insulin Pen [place]) 31 gauge x 5/16 needle Start: 11-10-2021 Blood Sugar Diagnostic (Blood Glucose Test) strip Start: 08-31-2020 End: 09-03-2020 Blood Sugar Diagnostic (Blood Glucose Test) strip Start: 09-03-2020 End: 11-11-2020 Blood Sugar Diagnostic (Onetouch Verio Test Strips) strip Start: 11-11-2020 End: 11-12-2020 Blood Sugar Diagnostic (Onetouch Verio Test Strips) strip Start: 11-12-2020 End: 11-12-2020 Lancets (Onetouc h Ultrasoft Lancets) misc Start: 11-11-2020 End: 11-12-2020 Lancets (Onetouc h Ultrasoft Lancets) misc Start: 11-12-2020 End: 11-12-2020 Pen Needle, Diab etic (Lite Touch Insulin Pen [place]) 31 gauge x 5/16 needle Start: 08-31-2020 End: 11-05-2021 Pen Needle, Diab etic (Lite Touch Insulin Pen [place]) 31 gauge x 5/16 needle Start: 11-05-2021 End: 11-10-2021 Blood Sugar Diagnostic (Onetouch Verio Test Strips) strip Start: 11-12-2020 Lancets (Onetouc h Ultrasoft Lancets) misc Start: 11-12-2020 Pen Needle, Diab etic (Bd Ultra-Fine Sophia Pen Needle) 32 gauge x 5/32 needle Start: 02-07-2022 Pen Needle, Diab etic (Lite Touch Insulin Pen [place]) 31 gauge x 5/16 needle Start: 11-10-2021 Blood Sugar Diagnostic (Blood Glucose Test) strip Start: 08-31-2020 End: 09-03-2020 Blood Sugar Diagnostic (Blood Glucose Test) strip Start: 09-03-2020 End: 11-11-2020 Blood Sugar Diagnostic (Onetouch Verio Test Strips) strip Start: 11-11-2020 End: 11-12-2020 Blood Sugar Diagnostic (Onetouch Verio Test Strips) strip Start: 11-12-2020 End: 11-12-2020 Lancets (Onetouc h Ultrasoft Lancets) misc Start: 11-11-2020 End: 11-12-2020 Lancets (Onetouc h Ultrasoft Lancets) misc Start: 11-12-2020 End: 11-12-2020 Pen Needle, Diab etic (Lite Touch Insulin Pen [place]) 31 gauge x 5/16 needle Start: 08-31-2020 End: 11-05-2021 Pen Needle, Diab etic (Lite Touch Insulin Pen [place]) 31 gauge x 5/16 needle Start: 11-05-2021 End: 11-10-2021 Blood Sugar Diagnostic (Onetouch Verio Test Strips) strip Start: 11-12-2020 Lancets (Onetouc h Ultrasoft Lancets) misc Start: 11-12-2020 Pen Needle, Diab etic (Bd Ultra-Fine Sophia Pen Needle) 32 gauge x 5/32 needle Start: 02-07-2022 Pen Needle, Diab etic (Lite Touch Insulin Pen [place]) 31 gauge x 5/16 needle Start: 11-10-2021 Blood Sugar Diagnostic (Blood Glucose Test) strip Start: 08-31-2020 End: 09-03-2020 Blood Sugar Diagnostic (Blood Glucose Test) strip Start: 09-03-2020 End: 11-11-2020 Blood Sugar Diagnostic (Onetouch Verio Test Strips) strip Start: 11-11-2020 End: 11-12-2020 Blood Sugar Diagnostic (Onetouch Verio Test Strips) strip Start: 11-12-2020 End: 11-12-2020 Lancets (Onetouc h Ultrasoft Lancets) misc Start: 11-11-2020 End: 11-12-2020 Lancets (Onetouc h Ultrasoft Lancets) misc Start: 11-12-2020 End: 11-12-2020 Pen Needle, Diab etic (Lite Touch Insulin Pen [place]) 31 gauge x 5/16 needle Start: 08-31-2020 End: 11-05-2021 Pen Needle, Diab etic (Lite Touch Insulin Pen [place]) 31 gauge x 5/16 needle Start: 11-05-2021 End: 11-10-2021 Blood Sugar Diagnostic (Onetouch Verio Test Strips) strip Start: 11-12-2020 Lancets (Onetouc h Ultrasoft Lancets) misc Start: 11-12-2020 Pen Needle, Diab etic (Bd Ultra-Fine Sophia Pen Needle) 32 gauge x 5/32 needle Start: 02-07-2022 Pen Needle, Diab etic (Lite Touch Insulin Pen [place]) 31 gauge x 5/16 needle Start: 11-10-2021 Blood Sugar Diagnostic (Blood Glucose Test) strip Start: 08-31-2020 End: 09-03-2020 Blood Sugar Diagnostic (Blood Glucose Test) strip Start: 09-03-2020 End: 11-11-2020 Blood Sugar Diagnostic (Onetouch Verio Test Strips) strip Start: 11-11-2020 End: 11-12-2020 Blood Sugar Diagnostic (Onetouch Verio Test Strips) strip Start: 11-12-2020 End: 11-12-2020 Lancets (Onetouc h Ultrasoft Lancets) misc Start: 11-11-2020 End: 11-12-2020 Lancets (Onetouc h Ultrasoft Lancets) misc Start: 11-12-2020 End: 11-12-2020 Pen Needle, Diab etic (Lite Touch Insulin Pen [place]) 31 gauge x 5/16 needle Start: 08-31-2020 End: 11-05-2021 Pen Needle, Diab etic (Lite Touch Insulin Pen [place]) 31 gauge x 5/16 needle Start: 11-05-2021 End: 11-10-2021 Blood Sugar Diagnostic (Onetouch Verio Test Strips) strip Start: 11-12-2020 Lancets (Onetouc h Ultrasoft Lancets) misc Start: 11-12-2020 Pen Needle, Diab etic (Bd Ultra-Fine Sophia Pen Needle) 32 gauge x 5/32 needle Start: 02-07-2022 Pen Needle, Diab etic (Lite Touch Insulin Pen [place]) 31 gauge x 5/16 needle Start: 11-10-2021 Blood Sugar Diagnostic (Blood Glucose Test) strip Start: 08-31-2020 End: 09-03-2020 Blood Sugar Diagnostic (Blood Glucose Test) strip Start: 09-03-2020 End: 11-11-2020 Blood Sugar Diagnostic (Onetouch Verio Test Strips) strip Start: 11-11-2020 End: 11-12-2020 Blood Sugar Diagnostic (Onetouch Verio Test Strips) strip Start: 11-12-2020 End: 11-12-2020 Lancets (Onetouc h Ultrasoft Lancets) misc Start: 11-11-2020 End: 11-12-2020 Lancets (Onetouc h Ultrasoft Lancets) misc Start: 11-12-2020 End: 11-12-2020 Pen Needle, Diab etic (Lite Touch Insulin Pen [place]) 31 gauge x 5/16 needle Start: 08-31-2020 End: 11-05-2021 Pen Needle, Diab etic (Lite Touch Insulin Pen [place]) 31 gauge x 5/16 needle Start: 11-05-2021 End: 11-10-2021 Blood Sugar Diagnostic (Onetouch Verio Test Strips) strip Start: 11-12-2020 Lancets (Onetouc h Ultrasoft Lancets) misc Start: 11-12-2020 Pen Needle, Diab etic (Bd Ultra-Fine Sophia Pen Needle) 32 gauge x 5/32 needle Start: 02-07-2022 Pen Needle, Diab etic (Lite Touch Insulin Pen [place]) 31 gauge x 5/16 needle Start: 11-10-2021 Blood Sugar Diagnostic (Blood Glucose Test) strip Start: 08-31-2020 End: 09-03-2020 Blood Sugar Diagnostic (Blood Glucose Test) strip Start: 09-03-2020 End: 11-11-2020 Blood Sugar Diagnostic (Onetouch Verio Test Strips) strip Start: 11-11-2020 End: 11-12-2020 Blood Sugar Diagnostic (Onetouch Verio Test Strips) strip Start: 11-12-2020 End: 11-12-2020 Lancets (Onetouc h Ultrasoft Lancets) misc Start: 11-11-2020 End: 11-12-2020 Lancets (Onetouc h Ultrasoft Lancets) misc Start: 11-12-2020 End: 11-12-2020 Pen Needle, Diab etic (Lite Touch Insulin Pen [place]) 31 gauge x 5/16 needle Start: 08-31-2020 End: 11-05-2021 Pen Needle, Diab etic (Lite Touch Insulin Pen [place]) 31 gauge x 5/16 needle Start: 11-05-2021 End: 11-10-2021 Blood Sugar Diagnostic (Onetouch Verio Test Strips) strip Start: 11-12-2020 Lancets (Onetouc h Ultrasoft Lancets) misc Start: 11-12-2020 Pen Needle, Diab etic (Bd Ultra-Fine Sophia Pen Needle) 32 gauge x 5/32 needle Start: 09-27-2022 Blood Sugar Diagnostic (Blood Glucose Test) strip Start: 08-31-2020 End: 09-03-2020 Blood Sugar Diagnostic (Blood Glucose Test) strip Start: 09-03-2020 End: 11-11-2020 Blood Sugar Diagnostic (Onetouch Verio Test Strips) strip Start: 11-11-2020 End: 11-12-2020 Blood Sugar Diagnostic (Onetouch Verio Test Strips) strip Start: 11-12-2020 End: 11-12-2020 Lancets (Onetouc h Ultrasoft Lancets) misc Start: 11-11-2020 End: 11-12-2020 Lancets (Onetouc h Ultrasoft Lancets) misc Start: 11-12-2020 End: 11-12-2020 Pen Needle, Diab etic (Bd Ultra-Fine Sophia Pen Needle) 32 gauge x 5/32 needle Start: 02-07-2022 End: 09-27-2022 Pen Needle, Diab etic (Lite Touch Insulin Pen [place]) 31 gauge x 5/16 needle Start: 08-31-2020 End: 11-05-2021 Pen Needle, Diab etic (Lite Touch Insulin Pen [place]) 31 gauge x 5/16 needle Start: 11-05-2021 End: 11-10-2021 Pen Needle, Diab etic (Lite Touch Insulin Pen [place]) 31 gauge x 5/16 needle Start: 11-10-2021 End: 08-26-2022 Pen Needle, Diab etic (Lite Touch Insulin Pen [place]) 31 gauge x 5/16 needle Start: 08-26-2022 End: 09-27-2022 Blood Sugar Diagnostic (Onetouch Verio Test Strips) strip Start: 11-12-2020 Lancets Start: 01-24-2023 Pen Needle, Diab etic (Bd Ultra-Fine Sophia Pen Needle) 32 gauge x 5/32 needle Start: 01-30-2023 Pen Needle, Diab etic (Comfort Ez Pen [place]) 32 gauge x 1/4 needle Start: 01-30-2023 Blood Sugar Diagnostic (Blood Glucose Test) strip Start: 08-31-2020 End: 09-03-2020 Blood Sugar Diagnostic (Blood Glucose Test) strip Start: 09-03-2020 End: 11-11-2020 Blood Sugar Diagnostic (Onetouch Verio Test Strips) strip Start: 11-11-2020 End: 11-12-2020 Blood Sugar Diagnostic (Onetouch Verio Test Strips) strip Start: 11-12-2020 End: 11-12-2020 Lancets (Onetouc h Ultrasoft Lancets) misc Start: 11-11-2020 End: 11-12-2020 Lancets (Onetouc h Ultrasoft Lancets) misc Start: 11-12-2020 End: 11-12-2020 Lancets (Onetouc h Ultrasoft Lancets) misc Start: 11-12-2020 End: 01-24-2023 Pen Needle, Diab etic (Bd Ultra-Fine Sophia Pen Needle) 32 gauge x 5/32 needle Start: 02-07-2022 End: 09-27-2022 Pen Needle, Diab etic (Bd Ultra-Fine Sophia Pen Needle) 32 gauge x 5/32 needle Start: 09-27-2022 End: 01-30-2023 Pen Needle, Diab etic (Lite Touch Insulin Pen [place]) 31 gauge x 5/16 needle Start: 08-31-2020 End: 11-05-2021 Pen Needle, Diab etic (Lite Touch Insulin Pen [place]) 31 gauge x 5/16 needle Start: 11-05-2021 End: 11-10-2021 Pen Needle, Diab etic (Lite Touch Insulin Pen [place]) 31 gauge x 5/16 needle Start: 11-10-2021 End: 08-26-2022 Pen Needle, Diab etic (Lite Touch Insulin Pen [place]) 31 gauge x 5/16 needle Start: 08-26-2022 End: 09-27-2022 Blood Sugar Diagnostic (Onetouch Verio Test Strips) strip Start: 11-12-2020 Lancets Start: 01-24-2023 Pen Needle, Diab etic (Bd Ultra-Fine Sophia Pen Needle) 32 gauge x 5/32 needle Start: 01-30-2023 Pen Needle, Diab etic (Comfort Ez Pen [place]) 32 gauge x 1/4 needle Start: 01-30-2023 Blood Sugar Diagnostic (Blood Glucose Test) strip Start: 08-31-2020 End: 09-03-2020 Blood Sugar Diagnostic (Blood Glucose Test) strip Start: 09-03-2020 End: 11-11-2020 Blood Sugar Diagnostic (Onetouch Verio Test Strips) strip Start: 11-11-2020 End: 11-12-2020 Blood Sugar Diagnostic (Onetouch Verio Test Strips) strip Start: 11-12-2020 End: 11-12-2020 Lancets (Onetouc h Ultrasoft Lancets) misc Start: 11-11-2020 End: 11-12-2020 Lancets (Onetouc h Ultrasoft Lancets) misc Start: 11-12-2020 End: 11-12-2020 Lancets (Onetouc h Ultrasoft Lancets) misc Start: 11-12-2020 End: 01-24-2023 Pen Needle, Diab etic (Bd Ultra-Fine Sophia Pen Needle) 32 gauge x 5/32 needle Start: 02-07-2022 End: 09-27-2022 Pen Needle, Diab etic (Bd Ultra-Fine Sophia Pen Needle) 32 gauge x 5/32 needle Start: 09-27-2022 End: 01-30-2023 Pen Needle, Diab etic (Lite Touch Insulin Pen [place]) 31 gauge x 5/16 needle Start: 08-31-2020 End: 11-05-2021 Pen Needle, Diab etic (Lite Touch Insulin Pen [place]) 31 gauge x 5/16 needle Start: 11-05-2021 End: 11-10-2021 Pen Needle, Diab etic (Lite Touch Insulin Pen [place]) 31 gauge x 5/16 needle Start: 11-10-2021 End: 08-26-2022 Pen Needle, Diab etic (Lite Touch Insulin Pen [place]) 31 gauge x 5/16 needle Start: 08-26-2022 End: 09-27-2022 Blood Sugar Diagnostic (Onetouch Verio Test Strips) strip Start: 11-12-2020 Lancets Start: 01-24-2023 Pen Needle, Diab etic (Bd Ultra-Fine Sophia Pen Needle) 32 gauge x 5/32 needle Start: 01-30-2023 Pen Needle, Diab etic (Comfort Ez Pen [place]) 32 gauge x 1/4 needle Start: 01-30-2023 Blood Sugar Diagnostic (Blood Glucose Test) strip Start: 08-31-2020 End: 09-03-2020 Blood Sugar Diagnostic (Blood Glucose Test) strip Start: 09-03-2020 End: 11-11-2020 Blood Sugar Diagnostic (Onetouch Verio Test Strips) strip Start: 11-11-2020 End: 11-12-2020 Blood Sugar Diagnostic (Onetouch Verio Test Strips) strip Start: 11-12-2020 End: 11-12-2020 Lancets (Onetouc h Ultrasoft Lancets) misc Start: 11-11-2020 End: 11-12-2020 Lancets (Onetouc h Ultrasoft Lancets) misc Start: 11-12-2020 End: 11-12-2020 Lancets (Onetouc h Ultrasoft Lancets) misc Start: 11-12-2020 End: 01-24-2023 Pen Needle, Diab etic (Bd Ultra-Fine Sophia Pen Needle) 32 gauge x 5/32 needle Start: 02-07-2022 End: 09-27-2022 Pen Needle, Diab etic (Bd Ultra-Fine Sophia Pen Needle) 32 gauge x 5/32 needle Start: 09-27-2022 End: 01-30-2023 Pen Needle, Diab etic (Lite Touch Insulin Pen [place]) 31 gauge x 5/16 needle Start: 08-31-2020 End: 11-05-2021 Pen Needle, Diab etic (Lite Touch Insulin Pen [place]) 31 gauge x 5/16 needle Start: 11-05-2021 End: 11-10-2021 Pen Needle, Diab etic (Lite Touch Insulin Pen [place]) 31 gauge x 5/16 needle Start: 11-10-2021 End: 08-26-2022 Pen Needle, Diab etic (Lite Touch Insulin Pen [place]) 31 gauge x 5/16 needle Start: 08-26-2022 End: 09-27-2022 Blood Sugar Diagnostic (Onetouch Verio Test Strips) strip Start: 11-12-2020 Lancets Start: 01-24-2023 Pen Needle, Diab etic (Bd Ultra-Fine Sophia Pen Needle) 32 gauge x 5/32 needle Start: 01-30-2023 Pen Needle, Diab etic (Comfort Ez Pen [place]) 32 gauge x 1/4 needle Start: 01-30-2023 Blood Sugar Diagnostic (Blood Glucose Test) strip Start: 08-31-2020 End: 09-03-2020 Blood Sugar Diagnostic (Blood Glucose Test) strip Start: 09-03-2020 End: 11-11-2020 Blood Sugar Diagnostic (Onetouch Verio Test Strips) strip Start: 11-11-2020 End: 11-12-2020 Blood Sugar Diagnostic (Onetouch Verio Test Strips) strip Start: 11-12-2020 End: 11-12-2020 Lancets (Onetouc h Ultrasoft Lancets) misc Start: 11-11-2020 End: 11-12-2020 Lancets (Onetouc h Ultrasoft Lancets) misc Start: 11-12-2020 End: 11-12-2020 Lancets (Onetouc h Ultrasoft Lancets) misc Start: 11-12-2020 End: 01-24-2023 Pen Needle, Diab etic (Bd Ultra-Fine Sophia Pen Needle) 32 gauge x 5/32 needle Start: 02-07-2022 End: 09-27-2022 Pen Needle, Diab etic (Bd Ultra-Fine Sophia Pen Needle) 32 gauge x 5/32 needle Start: 09-27-2022 End: 01-30-2023 Pen Needle, Diab etic (Lite Touch Insulin Pen [place]) 31 gauge x 5/16 needle Start: 08-31-2020 End: 11-05-2021 Pen Needle, Diab etic (Lite Touch Insulin Pen [place]) 31 gauge x 5/16 needle Start: 11-05-2021 End: 11-10-2021 Pen Needle, Diab etic (Lite Touch Insulin Pen [place]) 31 gauge x 5/16 needle Start: 11-10-2021 End: 08-26-2022 Pen Needle, Diab etic (Lite Touch Insulin Pen [place]) 31 gauge x 5/16 needle Start: 08-26-2022 End: 09-27-2022 Goals Date Patient Goal Desired Activity /State Functional Status Date Assessment Result Facility 06-18-2024 Functional status Ambulates;Bedrest [facility] Work Phone: 05-22-2024 Functional status Ambulates [facility] Work Phone: 08-08-2022 Functional status Ambulates;Up ad ag [facility] Work Phone: 11-10-2021 Functional status Ambulates [facility] Work Phone: NEGATED: Highlighted row Functional performance Functional status health issues are not documented Disease [facility] Work Phone: Mental Status Date Assessment Result Facility 08-07-2024 Cognitive function Awake;Alert;A ppropriate ;Follows Commands [facility] Work Phone: 06-18-2024 Cognitive function Voice/Name [facility] Work Phone: 05-22-2024 Cognitive function Voice/Name [facility] Work Phone: 08-08-2022 Cognitive function Voice/Name [facility] Work Phone: 08-04-2022 Cognitive function Level Of Cons ciousness Awake;Alert;Appropriate [facility] Work Phone: 11-10-2021 Cognitive function Voice/Name [facility] Work Phone: 11-07-2021 Cognitive function Voice/Name [facility] Work Phone: NEGATED: Highlighted row Cognitive function [Interpretation] Cognitive status health issues are not documented Disease [facility] Work Phone: Clinical Notes 08-20-2021 to 09-19-2024 Note Date & Type Note Facility 09-19-2024 Note [facility] 09-17-2024 Radiology Diagnostic study note [facility] 06-18-2024 Note [facility] 05-22-2024 Note [facility] 05-13-2024 Evaluation note Diagnosis Onset Date Resolution Dehydration acute April 8:01pm Hyponatremia chronic April 8:01pm Adverse drug reaction resolved Apr 8:01pm SALVATORE (acute kidney injury) resolved May 13, 2024 8:01pm Gastroenteritis resolved May 13, 2024 8:01pm Hyperkalemia resolved April 8:01pm Intractable nausea and vomiting resolved May 13 8:01pm Lactic acidosis resolved May 13, 2024 8:01pm Leukocytosis resolved April 8:01pm Nausea vomiting and diarrhea resolved May 13 8:01pm Paralytic ileus of small intestine resolved May 13 8:01pm Thrombocytosis resolved April 222023 8:01pm Watery diarrhea resolved May 13, 2024 8:01pm Acute kidney injury inactive 2024 7:59pm Chronic anemia inactive June 162024 7:59pm Recurrent falls inactive May 232024 7:59pm Anemia acute July 24 11:19am Dehydration acute July 24 11:19am Dizziness acute July 24 11:19am Hyponatremia chronic July 24 11:19am 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 GFR 30-59 chronic July 24 11:19am Bipolar disorder noneactive July 11:19am GERD (gastroesophageal reflux disease) noneactive July 24, 2024 11:19am Debility noneactive July 24 11:19am Hospital discharge follow-up noneactive July 24, 2024 11:19am [id number] kidney injury noneactive July 24, 2024 11:19am Paralytic ileus noneactive July 11:19am [facility] Work Phone: 1(298) 666-136512-23-2024 Evaluation note* Diagnosis Onset Date Resolution Status Admit Date Dehydration acute April 8:01pm Hyponatremia chronic April 8:01pm Adverse drug reaction resolved Apr 8:01pm SALVATORE (acute kidney injury) resolved May 13, 2024 8:01pm Gastroenteritis resolved May 13, 2024 8:01pm Hyperkalemia resolved April 8:01pm Intractable nausea and vomiting resolved May 13, 024 8:01pm Lactic acidosis resolved May 13, 2024 8:01pm Leukocytosis resolved April 8:01pm Nausea vomiting and diarrhea resolve d May 13, 2024 8:01pm Paralytic ileus of small intestine resolved May 13 024 8:01pm Thrombocytosis resolved April 222023 8:01pm Watery diarrhea resolved May 13, 2024 8:01pm Acute kidney injury inactive 2024 7:59pm Chronic anemia inactive June 162024 7:59pm Recurrent falls inactive May 232024 7:59pm Anemia acute July 24 11:19am Dehydration acute July 24 11:19am Dizziness acute July 24 11:19am Hyponatremia chronic July 24 11:19am 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 GFR 30-59 chronic July 24, 2024 11:19am Bipolar disorder noneactive July 11:19am GERD (gastroesophageal reflu x disease) noneactive July 24, 2024 11:19am Debility noneactive July 24 11:19am Hospital discharge follow-up noneact melvin July 24, 2024 11:19am Rceyq-ko-bcbxbnr kidney injury nonea ctive July 24, 2024 11:19am Paralytic ileus noneactive July 11:19am Lactic acidosis acute August 10:19pm [facility] Work Phone: 1(833) 574-254204-22-2024 Discharge summary Author Tobi Riojas [facility] September 11, 2023 1:06pm Note Date/Time September 11, 2023 10: 57am [facility] Medical Records Department [address] [place] [address] Emergency Department Summary 09/11/23 MR#: [id number] Acct: [id number] Name: LETI DELA CRUZ Rep #:[id number] 68 From: Tobi Riojas MD PCP: Dr. Denise [place], MD Status:REG ER Location: ED HPI History of Present Illness Chief Complaint: Fall Detail of Chief Complaint: Left foot and ankle pain secondary near fall yesterday Onset/Context/Timing Onset: Yesterday Mechanism/Context: Fall (Standing position.) Location of pain/injuries: Left ankle and Left foot Quality of Pain: Dull and Aching Location: Medial aspect of the ankle and second, third fourth metatarsal and proximal Current Severity: Mild Maximum Severity: Severe Worsened by: Unable to bear weight Relieved by: Nothing Associated Symptoms Associated Symptoms: Positive for Weakness, Loss of function and Inability to ambulate; Negative for Parasthesias, Loss of consciousness or Amnesia Narrative Narrative: Patient is a 68-year-old woman. She has past medical history coronary disease with stent placement September 06, 2021, type 2 diabetes which is age 4 chronic kidney disease, essential hypertension, hypothyroidism, anemia, paroxysmal atrial fibrillation who presents because of near falls. She injured her left ankle and foot. She states she cannot put weight on her left lower extremity. She denies prior fracture. Patient does endorse thirst, dry mouth and frequency/polyuria. Patient states she is drinking 6 bottles of water. She has not checked her blood sugar recently since her continuous glucose monitor device was not renewed. She does not know what her blood sugar has been for the last several weeks. She denies headache. She denies head trauma. Denies double vision, blurred vision or loss of vision. Eyes hernandez ears decreased hearing. She denies chestdiscomfort, dyspnea, orthopnea or PND. She denies abdominal pain, nausea, vomiting or diarrhea. She has black or maroon-colored stool. She denies dysuria or hematuria. She does endorse frequency and polyuria as well as polydipsia. Tetanus Immunization: Unknown Prior similar symptoms: No Recent Illness/Hospitalization: No PFSH PFSH Medical History Abnormal stress test Acute kidney injury superimposed on chronic kidney disease Acute pancreatitis Atherosclerotic heart disease of [place] coronary artery without angina pectoris Atrial fibrillation Bipolar disorder Chest pain Chronic pancreatic insufficiency Cough Dehydration Depression Essential hypertension Fibromyalgia affecting multiple sites Generalized OA Gout Hiatal hernia Hip pain, bilateral Hypertension Hypomagnesemia Hypotension Hypothyroidism Near syncope Overweight (BMI 25.0-29.9) Polyneuropathy due to type 2 diabetes mellitus Shoulder pain, bilateral Tachybradycardia syndrome 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 GFR 30-59 Umbilical hernia Home Medications blood-glucose meter (OneTouch Verio Flex Start kit) #1 ea 11/11/20 [Rx Last Taken Unknown] blood sugar diagnostic (OneTouch Verio test strips) #300 ea 11/12/20 [Rx Last Taken Unknown] flash glucose sensor (FreeStyle Marilyn 14 Day Sensor kit) #2 ea 07/26/21 [Rx Last Taken Unknown] albuterol sulfate 90 mcg/actuation aerosol inhaler 2 puff inhalation Q6H PRN Wheezing #8.5 grams 12/20/21 [Rx Last Taken 07/30/22] ferrous sulfate 324 mg (65 mg iron) tablet,delayed release 324 mg PO DAILY #90 tabs 08/17/22 [Rx Last Taken Unknown] lancets #300 ea 01/24/23 [Rx Last Taken Unknown] pen needle, diabetic 32 gauge x 1/4 (Comfort EZ Pen [place]) #100 ea 01/30/23 [Rx Last Taken Unknown] pen needle, diabetic 32 gauge x 5/32 (BD Ultra-Fine Sophia Pen Needle) #400 ea 01/30/23 [Rx Last Taken Unknown] pantoprazole 40 mg tablet,delayed release 40 mg PO DAILY gerd #90 tabs 02/13/23 [Rx Last Taken Unknown] apixaban 5 mg tablet (Eliquis) 5 mg PO BID #180 tabs 03/09/23 [Rx Last Taken Unknown] carvedilol 6.25 mg tablet 6.25 mg PO BID #180 tabs 03/09/23 [Rx Last Taken Unknown] Farxiga 10 mg tablet (dapagliflozin propanediol) 10 mg PO QAM #90 tabs 03/31/23 [Rx Last Taken Unknown] levothyroxine 112 mcg tablet 112 mcg PO MOTUWETHFR thyroid #90 tabs 06/26/23 [Rx Last Taken Unknown] nitroglycerin 0.4 mg sublingual tablet (Nitrostat) 0.4 mg sublingual Q5-15M PRN chest pain #25 tabs 06/26/23 [Rx Last Taken Unknown] allopurinol 100 mg tablet 100 mg PO QHS gout #100 tabs 06/28/23 [Rx Last Taken Unknown] atorvastatin 80 mg tablet 80 mg PO QHS Hyperlipidemia #100 tabs 06/28/23 [Rx Last Taken Unknown] colestipol 1 gram tablet 1 g PO DAILY cholesterol #100 tabs 06/28/23 [Rx Last Taken Unknown] divalproex 125 mg capsule,delayed release sprinkle 125 mg PO BID bipolar #200 caps 06/28/23 [Rx Last Taken Unknown] insulin lispro 100 unit/mL subcutaneous pen (Humalog KwikPen (U-100) Insulin) 10unit (0.1 mL) subcut TID #9 mL 06/28/23 [Rx Last Taken Unknown] isosorbide mononitrate 30 mg tablet,extended release 24 hr 30 mg PO DAILY #30 tabs 07/07/23 [Rx Last Taken Unknown] varenicline 1 mg tablet (Chantix Continuing Month Box) 1 mg PO BID #60 tabs 07/10/23 [Rx Last Taken Unknown] amitriptyline 50 mg tablet 50 mg PO QHS #90 tabs 08/11/23 [Rx Last Taken Unknown] gabapentin 600 mg tablet 900 mg (1.5 x 600 mg) PO BID neuropathy #135 tabs 08/11/23 [Rx Last Taken Unknown] losartan 50 mg tablet 50 mg PO DAILY Check with primary doctor #90 tabs 08/11/23[Rx Last Taken Unknown] nystatin 100,000 unit/gram topical powder (Nyamyc) 1 applic topical BID PRN for infectious disease #30 GMS 08/14/23 [Rx Last Taken Unknown] insulin glargine 100 unit/mL (3 mL) subcutaneous pen (Lantus Solostar U-100 Insulin) 24 unit (0.24 mL) subcut QHS #7.2 mL 08/17/23 [Rx Last Taken Unknown] ticagrelor 90 mg tablet 90 mg PO BID 08/17/23 [History Last Taken Unknown] hydrocodone-acetaminophen 5-325mg 5mg-325mg 1 tab PO Q6H PRN PRN Pain 3 days #10TABLETS 09/11/23 [Rx Last Taken Unknown] triamterene 37.5 mg-hydrochlorothiazide 25 mg tablet 1 tab PO DAILY 09/11/23 [History Last Taken Unknown] Allergy/AdvReac Type Severity Reaction Status Date / Time duloxetine [From Cymbalta] Allergy Itching Verified 09/11/23 10:37 tomato Allergy Itching Verified 09/11/23 10:37 diphenhydramine AdvReac Severe other Verified 09/11/23 10:37 [From Benadryl] isosorbide AdvReac Intermediate Other Verified 09/11/23 10:37 adhesive tape [plastic tape] AdvReac Rash Verified 09/11/23 10:37 semaglutide [From Ozempic] AdvReac Diarrhea Verified 09/11/23 10:37 Family History Sister COPD (chronic obstructive pulmonary disease) Mother COPD (chronic obstructive pulmonary disease) Hypertension Alzheimer's dementia without behavioral disturbance Father Diabetes Hypertension Myocardial infarction Parkinsons disease Surgical History History of laparoscopic appendectomy History of surgical procedure History of total abdominal hysterectomy Hx of cholecystectomy Hx of shoulder surgery Presence of stent in coronary artery (~09/06/21) Social History household members: family current occupational status: retired current occupation: multiple jobs - most recently [employer] Smoking Status: Current every day smoker tobacco type: cigarettes Electronic Cigarette Use: not used alcohol intake: never substance use type: does not use caffeine: No what type of physical activity do you participate in: none do you feel safe at home: Yes ROS ROS ED Constitutional Constitutional ED: Denies chills, fever(s), subjective, sweats or weight loss Eyes Eyes: Denies blurry vision or change in vision ENT ENT ED: Reports other Details: Dry mouth and thirst ; Denies ear pain, rhinorrhea or sore throat Cardiovascular Cardiovascular: Denies chest pain, palpitations or paroxysmal nocturnal dyspnea Respiratory/Chest Respiratory/Chest: Denies cough, dyspnea, dyspnea on exertion or paroxysmal nocturnal dyspnea Gastrointestinal Gastrointestinal: Denies abdominal pain, melena, nausea or vomiting Genitourinary Genitourinary ED: Reports urinary frequency; Denies dysuria or hematuria Musculoskeletal Musculoskeletal: Reports other Details: Left ankle and foot pain. ; Denies arthralgias, back pain or myalgias Integumentary Reports other Details: Swelling and bruising of the left foot and left ankle ; Denies rash Neurologic Neurologic: Reports weakness; Denies paresthesias Endocrine Endocrinology: Reports polydipsia and polyuria; Denies cold intolerance or heat intolerance Hematologic/Lymphatic Hematologic/Lymphatic: Denies easy bleeding or easy bruising Allergic/Immunologic Allergic/Immunologic ED: Denies mouth swelling or tongue swelling EXAM Physical Exam Const Vital Signs: 09/11/23 10:37 09/11/23 10:41 09/11/23 12:37 Temperature 97.3 F L Temperature Source Temporal Pulse Rate 63 68 Respiratory Rate 16 18 Respiratory Effort Normal Non-Labored Respiratory Depth Normal Respiratory Pattern Normal Blood Pressure 152/57 H 185/104 H Blood Pressure Mean 88 131 Pulse Ox 94 94 Oxygen Delivery Method Room Air Room Air Room Air Positive well nourished, well developed and obese General Appearance ED: well developed and NAD Nutritional Appearance: obese HEENT HEENT Narrative: Ears are normal. Nares are patent. There is no septal deviation hematoma. Mucosa is dry. Posterior pharynx is normal. atraumatic; Negative for tenderness Nose: Negative for septum abnormal Eyes PERRL and EOMs intact bilaterally General Eye ED: Yes other Other Details: There is no subconjunctival hemorrhage. There is no pallor to the conjunctivo-. Neck full ROM Chest Wall inspection of chest normal and palpation of chest normal Resp normal respiratory effort and clear to auscultation bilaterally Cardio regular rhythm, S1 normal heart sound, S2 normal heart sound and no murmurs Rate: regular rate GI normal to inspection, nondistended, normoactive bowel sounds, non-tender, non-distended and no masses Auscultation: normoactive bowel sounds Back/Spine normal to inspection Extremity Negative for normal to inspection or full ROM Extremity Narrative: There is soft tissue swelling with ecchymosis medially with pain outpatient overthe lateral and medial malleolus. There is no laxity with drawer testing.there is also pain ovation over the second, third fourth metatarsal bone and proximal phalanx of respected toes. General Extremety ED: Yes edema and tenderness; Negative for deformity General Extremity: edema; Negative for deformity Neuro oriented x3, CN's II-XII intact bilaterally, moves all extremities, no focal motor deficits and no sensory deficits noted [place] Coma Scale: document GCS findings Spontaneous Obeys Commands Oriented 15 Sensorium / Orientation: alert Plantar Reflex: Downgoing: bilateral Psych mental status grossly normal and thought process normal Skin no rashes or lesions noted, skin turgor normal and no jaundice MDM MDM MDM Narrative Medical decision making narrative: With patient having dry mouth, polyuria, polydipsia and not able to check her blood sugars suspect she is hyperglycemic. BGT was obtained. Clinically she isdehydrated. 1 L normal saline was ordered. Per review of prior records there is no history of heart failure. X-ray of the ankle and foot were obtained to assess for sprain versus strain versus fracture of the ankle and foot respectively. BMP was obtained to assess electrolytes and renal function. CBC to assess white count and H&H. Patient is on anticoagulant, apixaban, for paroxysmal atrial fibrillation. History & Record Review Additional record(s) reviewed:: Prior inpatient record (Outside records and hospitalization for ileus July 2022), Prior outpatient record (Dr. Garcia's records for endocrinology, Denise Uribe for CAD and April 2023 for anemia),Prior ED visit and Prior labs Lab Data Attestation: I reviewed the patient's lab results. Lab results narrative: Patient has mild hyponatremia. She has had hyponatremia in the past. BUN and creatinine are elevated at 35 1.66, which is patient's baseline. Glucose is 164with a normal CO2 and anion gap. UA is negative. Labs: Laboratory Results - last 24 hr 09/11/23 09/11/23 11:00 12:09 Sodium 129 L Potassium 4.6 Chloride 98 Carbon Dioxide 21.0 Anion Gap 10 BUN 35 H Creatinine 1.66 H Estim Creat Clear Calc 29.71 Est GFR (MDRD) Af Amer 40 L Est GFR (MDRD) Non-Af 33 L BUN/Creatinine Ratio 21.1 H Glucose 164 H Calcium 8.7 Total Bilirubin 0.50 AST 29 ALT 25 Alkaline Phosphatase 122 H Total Protein 8.0 Albumin 3.4 Globulin 4.6 H Albumin/Globulin Ratio 0.7 L Urine Color Straw Urine Clarity Sl. Cloudy Urine pH 6.0 Ur Specific [place] 1.010 Urine Protein 15 H Urine Glucose (UA) 1000 H Urine Ketones Negative Urine Occult Blood Negative Urine Nitrite Negative Urine Bilirubin Negative Urine Urobilinogen Normal Ur Leukocyte Esterase Negative Urine RBC 0 SEEN Urine WBC 0 SEEN Ur Squamous Epith Cells 0 SEEN Urine Bacteria 0 SEEN Urine Mucus 0 SEEN Radiography Chest X-Ray - ED: Read by ED Physician (Three-view x-ray of the left ankle and three-view x-ray of the left foot were obtained. There is no evidence of fracture, subluxation dislocation noted. There is soft tissue swelling noted onthe AP ankle film. These were independently reviewed interpreted by me at 1118.) Diagnostic Testing: Clinical Impression(s) from Imaging Studies Ankle X-Ray 09/11/23 11:05 IMPRESSION: Diffuse soft tissue swelling. Findings suggestive of a tiny avulsion fracture of the medial malleolus. Electronically Signed: Lloyd Evans MD at 11:40 EDT , Foot X-Ray 09/11/23 11:05 IMPRESSION: Soft tissue swelling. Electronically Signed: Lloyd Evans MD at 11:20 EDT , Radiologist raise concern for possible small avulsion fracture of the medial malleolus. This may represent a chronic abnormality since the edges are well- rounded. Discharge Plan Triage Chief Complaint: Fall ED Provider: Tobi Riojas Dx/Rx/DC Orders Clinical Impression: Avulsion fracture of medial malleolus of left tibia, Atherosclerotic heart disease of [place] coronary artery without angina pectoris, CKD (chronic kidney disease) stage 3, GFR 30-59 ml/min, Essential hypertension, Chronic anticoagulation, Contusion of foot, left, Acute dehydration, Hyponatremia, Type 2 diabetes mellitus with hyperglycemia, without long-term current use of insulin Instructions: ED Ankle Fracture, ED Foot Contusion Prescriptions: New hydrocodone-acetaminophen [hydrocodone-acetaminophen] 5-325 mg tablet 1 tab PO Q6H PRN PRN (Reason: Pain) 3 Days Qty: 10 0RF No Action (DME) FreeStyle Marilyn 14 Day Sensor Kit See Rx Instructions .ROUTE .MEDSUPPLY Qty: 2 6RF Rx Instructions: As directed ferrous sulfate 324 mg (65 mg iron) tablet,delayed release (DR/EC) 324 mg PO DAILY Qty: 90 1RF Farxiga 10 mg tablet 10 mg PO QAM Qty: 90 3RF (DME) lancets Misc See Rx Instructions .ROUTE .MEDSUPPLY Qty: 300 0RF Rx Instructions: Check 3 times a day and as needed ticagrelor 90 mg tablet 90 mg PO BID isosorbide mononitrate 30 mg tablet extended release 24 hr 30 mg PO DAILY Qty: 30 11RF triamterene-hydrochlorothiazid 37.5-25 mg tablet 1 tab PO DAILY (DME) blood-glucose meter [OneTouch Verio Flex Start] Kit See Rx Instructions .ROUTE .MEDSUPPLY Qty: 1 0RF Rx Instructions: Twice daily and as needed (DME) OneTouch Verio test strips Strip See Rx Instructions .ROUTE .MEDSUPPLY Qty: 300 3RF Rx Instructions: Check 3 times a day and as needed albuterol sulfate 90 mcg/actuation HFA aerosol inhaler 2 puff INHALATION Q6H PRN (Reason: Wheezing) Qty: 8.5 6RF (DME) pen needle, diabetic [Comfort EZ Pen [place]] 32 gauge x 1/4 needle See Rx Instructions .Route Qty: 100 0RF Rx Instructions: As directed (DME) pen needle, diabetic [BD Ultra-Fine Sophia Pen Needle] 32 gauge x 5/32 needle See Rx Instructions .Route Qty: 400 3RF Rx Instructions: qid pantoprazole 40 mg tablet,delayed release (DR/EC) 40 mg PO DAILY Qty: 90 3RF carvedilol 6.25 mg tablet 6.25 mg PO BID Qty: 180 3RF Rx Instructions: must administer with a meal/food Eliquis 5 mg tablet 5 mg PO BID Qty: 180 3RF nitroglycerin [Nitrostat] 0.4 mg tablet, sublingual 0.4 mg sublingual Q5-15M PRN (Reason: chest pain) Qty: 25 3RF Rx Instructions: do not exceed 3 doses per episode levothyroxine 112 mcg tablet 112 mcg PO MOTUWETHFR Qty: 90 0RF atorvastatin 80 mg tablet 80 mg PO QHS Qty: 100 1RF Rx Instructions: cholesterol allopurinol 100 mg tablet 100 mg PO QHS Qty: 100 1RF colestipol 1 gram tablet 1 g PO DAILY Qty: 100 1RF divalproex 125 mg capsule, delayed rel sprinkle 125 mg PO BID Qty: 200 1RF insulin lispro [Humalog KwikPen Insulin] 100 unit/mL insulin pen 10 unit subcut TID Qty: 9 5RF varenicline [Chantix Continuing Month Box] 1 mg tablet 1 mg PO BID Qty: 60 1RF amitriptyline 50 mg tablet 50 mg PO QHS Qty: 90 0RF gabapentin 600 mg tablet 900 mg PO BID Qty: 135 0RF losartan 50 mg tablet 50 mg PO DAILY Qty: 90 0RF nystatin [Nyamyc] 100,000 unit/gram powder 1 applic topical BID PRN (Reason: for infectious disease) Qty: 30 0RF insulin glargine [Lantus Solostar U-100 Insulin] 100 unit/mL (3 mL) insulin pen 24 unit subcut QHS Qty: 7.2 3RF Primary Care Provider: Denise Uribe Referrals: Denise Uribe MD [Primary Care Provider] - 1 Week Nadeem Whittington DPM [Med Staff - Active Staff] - 1 Week Disposition Disposition: Home, Self Care What to do if you have Problems For any increased pain, shortness of breath, bleeding, nausea or vomiting, chestpain, or any unexpected problems, contact your Primary Care Provider. Call [facility] ([phone]) or report to the closest Emergency Room. Call 911 if necessary. 09/11/23 1306 <Electronically signed by Tobi Riojas MD> Cosigner Signature (if applicable): CC: Dr. Denise Uribe MD ~ Signed [facility] Work Phone: [phone] Brar [facility] September 15, 2022 7:29pm Note Date/Time September 15, 2022 4:1 0pm [facility] Medical Records Department [address] [place] [address] Emergency Department Summary 09/15/22 MR#: [id number] Acct: [id number] Name: LETI DELA CRUZ Rep #[id number] From: Jozef Brar DO PCP: SILVIA Ramos Status:REG ER Location: ED HPI History of Present Illness Chief Complaint: Allergic Reaction Narrative Narrative: Patient presenting today out of concern for allergic reaction. Patient notes that she used a new soap on her face and body and noticed that she had a rash onher face only. She denies any other soaps, dyes, linens, detergents, make-up oranything else she could have used on her face to make her face red. She does not have a rash elsewhere. She states that today she felt a little bit short ofbreath and since Monday she had a couple episodes of nausea and vomiting. She does not think she had a fever. She did feel short of breath earlier but statesEMS gave her treatment for allergic reaction and she feels improved currently. [facility] Medical History Acute kidney injury superimposed on chronic kidney disease Atherosclerotic heart disease of [place] coronary artery without angina pectoris Atrial fibrillation Bipolar disorder Chest congestion Chronic pancreatic insufficiency Dehydration Depression Diabetes Essential hypertension Fibromyalgia affecting multiple sites Generalized OA Gout Hiatal hernia Hip pain, bilateral Hypertension Hypomagnesemia Hypotension Hypothyroidism Near syncope Overweight (BMI 25.0-29.9) Polyneuropathy due to type 2 diabetes mellitus Pre-op evaluation Shoulder pain, bilateral Tachybradycardia syndrome 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 GFR 30-59 Umbilical hernia Home Medications blood-glucose meter ([employer] Verio Flex Start kit) #1 ea 11/11/20 [Rx Last Taken Unknown] blood sugar diagnostic (OneTouch Verio test strips) #300 ea 11/12/20 [Rx Last Taken Unknown] lancets (Genio Studio LtdTouch UltraSoft Lancets) #300 ea 11/12/20 [Rx Last Taken Unknown] nitroglycerin 0.4 mg sublingual tablet (Nitrostat) 0.4 mg sublingual Q5-15M PRN chest pain #25 tabs 01/11/21 [Rx Last Taken Unknown] flash glucose sensor (FreeStyle Marilyn 14 Day Sensor kit) #2 ea 07/26/21 [Rx Last Taken Unknown] allopurinol 100 mg tablet 100 mg PO QHS gout #90 tabs 10/27/21 [Rx Last Taken 08/03/22] colestipol 1 gram tablet 1 g PO DAILY cholesterol 11/07/21 [History Last Taken 08/03/22] albuterol sulfate 90 mcg/actuation aerosol inhaler 2 puff inhalation Q6H PRN Wheezing #8.5 grams 12/20/21 [Rx Last Taken 07/30/22] pen needle, diabetic 32 gauge x 5/32 (BD Ultra-Fine Sophia Pen Needle) #100 ea 02/07/22 [Rx Last Taken Unknown] nystatin 100,000 unit/gram topical powder (Nyamyc) 1 applic topical BID PRN skininfection #30 grams 03/09/22 [Rx Last Taken Unknown] divalproex 125 mg capsule,delayed release sprinkle 125 mg PO BID bipolar #180 caps 05/18/22 [Rx Last Taken 08/03/22] gabapentin 600 mg tablet 900 mg PO BID neuropathy #180 tabs 05/18/22 [Rx Last Taken 08/03/22] levothyroxine 112 mcg tablet 112 mcg PO MOTUWETHFR thyroid #90 tabs 05/18/22 [Rx Last Taken 08/04/22] apixaban 5 mg tablet (Eliquis) 5 mg PO BID Check with primary doctor 08/04/22 [History Last Taken 08/03/22] carvedilol 6.25 mg tablet 6.25 mg PO BID Check with primary doctor 08/04/22 [History Last Taken 08/03/22] escitalopram oxalate 10 mg tablet (Lexapro) 20 mg PO DAILY Check with primary doctor 08/04/22 [History Last Taken 08/03/22] fluconazole 150 mg tablet (Diflucan) 150 mg PO DAILY PRN infection 08/04/22 [History Last Taken Unknown] insulin glargine 100 unit/mL (3 mL) subcutaneous pen (Lantus Solostar U-100 Insulin) 30 unit subcut QHS Check with primary doctor 08/04/22 [History Last Taken 08/03/22] insulin lispro 100 unit/mL subcutaneous pen (Humalog KwikPen (U-100) Insulin) 5 unit subcut TID Check with primary doctor 08/04/22 [History Last Taken 08/03/22] ticagrelor 90 mg tablet 90 mg PO BID Check with primary doctor 08/04/22 [History Last Taken 08/03/22] losartan 50 mg tablet 50 mg PO DAILY Check with primary doctor #90 tabs 08/10/22[Rx Last Taken Unknown] dapagliflozin 10 mg tablet (Farxiga) 10 mg PO QAM #90 tabs 08/17/22 [Rx Last Taken Unknown] ergocalciferol (vitamin D2) 1,250 mcg (50,000 unit) capsule 50,000 unit PO QWEEK#12 caps 08/17/22 [Rx Last Taken Unknown] ferrous sulfate 324 mg (65 mg iron) tablet,delayed release 324 mg PO DAILY #90 tabs 08/17/22 [Rx Last Taken Unknown] pen needle, diabetic 31 gauge x 5/16 (Lite Touch Insulin Pen [place]) #400 ea 08/26/22 [Rx Last Taken Unknown] atorvastatin 80 mg tablet 80 mg PO QHS Hyperlipidemia #90 tabs 08/29/22 [Rx Last Taken Unknown] pantoprazole 40 mg tablet,delayed release 40 mg PO DAILY gerd #90 tabs 08/29/22 [Rx Last Taken Unknown] triamterene 37.5 mg-hydrochlorothiazide 25 mg tablet 1 tab PO DAILY bp #90 tabs 09/07/22 [Rx Last Taken Unknown] diphenhydramine HCl 25 mg capsule (Benadryl) 25 mg PO TID PRN allergic reaction #10 caps 09/15/22 [Rx Last Taken Unknown] epinephrine 0.3 mg/0.3 mL injection, auto-injector 0.3 mg (0.3 mL) IM Q4H PRN anaphylaxis #2 ea 09/15/22 [Rx Last Taken Unknown] prednisone 10 mg tablet 40 mg PO DAILY 3 days #12 tabs 09/15/22 [Rx Last Taken Unknown] Allergy/AdvReac Type Severity Reaction Status Date / Time duloxetine [From Cymbalta] Allergy Itching Verified 08/17/22 07:59 tomato Allergy Itching Verified 08/17/22 07:59 isosorbide AdvReac Intermediate Other Verified 08/17/22 07:59 adhesive tape [plastic tape] AdvReac Rash Verified 08/17/22 07:59 Family History Sister COPD (chronic obstructive pulmonary disease) Mother COPD (chronic obstructive pulmonary disease) Hypertension Alzheimer's dementia without behavioral disturbance Alzheimer's dementia Father Diabetes Hypertension Myocardial infarction Surgical History History of laparoscopic appendectomy History of total abdominal hysterectomy Hx of cholecystectomy Hx of shoulder surgery Presence of stent in coronary artery (~09/06/21) Social History Smoking Status: Current every day smoker tobacco type: cigarettes alcohol intake: never substance use type: does not use caffeine: No what type of physical activity do you participate in: none ROS ROS ED Constitutional Constitutional ED: Denies chills or fever(s) Eyes Eyes: Denies change in vision or diplopia ENT ENT ED: Denies rhinorrhea or sore throat Cardiovascular Cardiovascular: Denies chest pain or palpitations Respiratory/Chest Respiratory/Chest: Reports dyspnea, sputum and other; Denies cough Gastrointestinal Gastrointestinal: Reports nausea and vomiting; Denies abdominal pain Genitourinary Genitourinary ED: Denies dysuria or hematuria Musculoskeletal Musculoskeletal: Denies arthralgias Integumentary Denies abscess Neurologic Neurologic: Denies headache(s) Psychiatric Psychiatric: Denies anxiety or depression EXAM Physical Exam Const Vital Signs: 09/15/22 15:44 09/15/22 15:48 09/15/22 16:57 Temperature 97.9 F Temperature Source Temporal Pulse Rate 75 79 Respiratory Rate 27 H Blood Pressure 184/60 H 147/78 H Blood Pressure Mean 101 101 Pulse Ox 98 96 Oxygen Delivery Method Room Air Room Air 09/15/22 17:56 Temperature Temperature Source Pulse Rate 70 Respiratory Rate 24 H Blood Pressure Blood Pressure Mean Pulse Ox 94 Oxygen Delivery Method Room Air Positive well nourished General Appearance ED: NAD HEJOSE GUADALUPE HEJOSE GUADALUPE Narrative: Cheeks and forehead appear erythematous. There is mildly increased warmth in these regions. The rash is symmetrical. Eyes PERRL and EOMs intact bilaterally Neck no lymphadenopathy Chest Wall inspection of chest normal Resp normal respiratory effort and clear to auscultation bilaterally Cardio regular rate and regular rhythm GI normal to inspection, nondistended, normoactive bowel sounds Neuro oriented x3 and CN's II-XII intact bilaterally Sensorium / Orientation: alert Motor Exam: strength 5/5 throughout Psych mental status grossly normal Skin Skin Narrative: As described above MDM MDM MDM Narrative Medical decision making narrative: Patient initially presented for allergic reaction. She states that she was given treatment for allergic reaction prior to arrival. She did have some dyspnea today which improved after treatment. She had a rash on her face for 2 days. She states that EMS noted that she had rash all over her body although I only appreciate this on the face. Patient then told me she has had some nausea and vomiting since Monday intermittently. Differential includes anaphylaxis, hypoglycemia, hyperglycemia, electrolyte abnormality, dehydration, Depakote toxicity, pancreatitis. It does appear that the patient was given Solu-Medrol 125, Benadryl 25 mg, 0.3 of epinephrine pen. Did obtain basic lab work. Patient has leukocytosis of 15.1. Hemoglobin macular stable. Platelets slightly high. Creatinine near baseline. Electrolytes unremarkable. LFTs unremarkable. Lipase negative. Urinalysis inconsistent with infection. Depakote level is subtherapeutic. I did obtain a chest x-ray which was negativefor acute cardiopulmonary process on my interpretation. Radiologist interprets this and agrees. Reevaluation at 7:20 PM the patient is doing well. Her erythema on her face is improved. Her vital signs are stable she is afebrile. I counseled the patient I was going to send her home on a couple days of prednisone, Benadryl, and an epinephrine pen just in case. Patient states she is diabetic but knows how to adjust her insulin for her hyperglycemia. Return precautions were discussed. Impression: 1. Anaphylaxis 2. Leukocytosis Lab Data Labs: Laboratory Results - last 24 hr 09/15/22 09/15/22 09/15/22 16:13 16:13 16:40 WBC 15.1 H RBC 3.81 L Hgb 11.6 L Hct 36.5 L MCV 95.8 MCH 30.4 MCHC 31.8 L RDW Std Deviation 59.0 H RDW Coeff of Yaw 16.6 H Plt Count 490 H MPV 9.6 Immature Gran % (Auto) 0.500 Neut % (Auto) 80.4 H Lymph % (Auto) 12.8 L [place] % (Auto) 5.7 Eos % (Auto) 0.3 Baso % (Auto) 0.3 Absolute Neuts (auto) 12.1 H Absolute Lymphs (auto) 1.93 Nucleated RBC % 0 Sodium 134 L Potassium 3.6 Chloride 105 Carbon Dioxide 18.0 L Anion Gap 11 BUN 27 H Creatinine 1.07 H Estim Creat Clear Calc 50.87 Est GFR (MDRD) Af Amer 66 Est GFR (MDRD) Non-Af 55 L BUN/Creatinine Ratio 25.2 H Glucose 199 H Calcium 9.0 Total Bilirubin 0.40 AST 14 L ALT 20 Alkaline Phosphatase 93 Total Protein 8.1 Albumin 3.2 Globulin 4.9 H Albumin/Globulin Ratio 0.7 L Lipase 56 Urine Color Yellow Urine Clarity Clear Urine pH 5.0 Ur Specific [place] 1.020 Urine Protein 100 H Urine Glucose (UA) 1000 H Urine Ketones 50 H Urine Occult Blood 25 H Urine Nitrite Negative Urine Bilirubin Negative Urine Urobilinogen Normal Ur Leukocyte Esterase Negative Urine RBC 0 SEEN Urine WBC 0 SEEN Ur Squamous Epith Cells 0-5 SEEN Urine Bacteria 0 SEEN Urine Mucus 0 SEEN Urine Yeast 2+ Valproic Acid 09/15/22 16:40 WBC RBC Hgb Hct MCV MCH MCHC RDW Std Deviation RDW Coeff of Yaw Plt Count MPV Immature Gran % (Auto) Neut % (Auto) Lymph % (Auto) [place] % (Auto) Eos % (Auto) Baso % (Auto) Absolute Neuts (auto) Absolute Lymphs (auto) Nucleated RBC % Sodium Potassium Chloride Carbon Dioxide Anion Gap BUN Creatinine Estim Creat Clear Calc Est GFR (MDRD) Af Amer Est GFR (MDRD) Non-Af BUN/Creatinine Ratio Glucose Calcium Total Bilirubin AST ALT Alkaline Phosphatase Total Protein Albumin Globulin Albumin/Globulin Ratio Lipase Urine Color Urine Clarity Urine pH Ur Specific [place] Urine Protein Urine Glucose (UA) Urine Ketones Urine Occult Blood Urine Nitrite Urine Bilirubin Urine Urobilinogen Ur Leukocyte Esterase Urine RBC Urine WBC Ur Squamous Epith Cells Urine Bacteria Urine Mucus Urine Yeast Valproic Acid 12 L Radiography Diagnostic Testing: Clinical Impression(s) from Imaging Studies Chest X-Ray 09/15/22 16:50 IMPRESSION: No evidence of acute cardiopulmonary process. Electronically Signed: Chalino Holcomb DO at 17:03 EDT Reading Location ID and State: [address] [place] [address] , Service support , Discharge Plan Triage Chief Complaint: Allergic Reaction ED Provider: Jozef Brar Dx/Rx/DC Orders Prescriptions: New prednisone 10 mg tablet 40 mg PO DAILY 3 Days Qty: 12 0RF diphenhydramine HCl [Benadryl] 25 mg capsule 25 mg PO TID PRN (Reason: allergic reaction) Qty: 10 0RF epinephrine 0.3 mg/0.3 mL auto-injector 0.3 mg IM Q4H PRN (Reason: anaphylaxis) Qty: 2 0RF No Action nitroglycerin [Nitrostat] 0.4 mg tablet, sublingual 0.4 mg sublingual Q5-15M PRN (Reason: chest pain) Qty: 25 3RF Rx Instructions: do not exceed 3 doses per episode (DME) FreeStyle Marilyn 14 Day Sensor Kit See Rx Instructions .ROUTE .MEDSUPPLY Qty: 2 6RF Rx Instructions: As directed (DME) pen needle, diabetic [BD Ultra-Fine Sophia Pen Needle] 32 gauge x 5/32 needle See Rx Instructions .Route Qty: 100 5RF Rx Instructions: TID ergocalciferol (vitamin D2) 1,250 mcg (50,000 unit) capsule 50,000 unit PO QWEEK Qty: 12 0RF ferrous sulfate 324 mg (65 mg iron) tablet,delayed release (DR/EC) 324 mg PO DAILY Qty: 90 1RF Farxiga 10 mg tablet 10 mg PO QAM Qty: 90 3RF colestipol 1 gram Tablet 1 g PO DAILY carvedilol 6.25 mg tablet 6.25 mg PO BID Rx Instructions: must administer with a meal/food fluconazole [Diflucan] 150 mg tablet 150 mg PO DAILY PRN (Reason: infection) Rx Instructions: administer on day 1 of therapy insulin lispro [Humalog KwikPen Insulin] 100 unit/mL insulin pen 5 unit subcut TID escitalopram oxalate [Lexapro] 10 mg tablet 20 mg PO DAILY insulin glargine [Lantus Solostar U-100 Insulin] 100 unit/mL (3 mL) insulin pen 30 unit subcut QHS ticagrelor 90 mg tablet 90 mg PO BID Eliquis 5 mg tablet 5 mg PO BID (DME) blood-glucose meter [OneTouch Verio Flex Start] Kit See Rx Instructions .ROUTE .MEDSUPPLY Qty: 1 0RF Rx Instructions: Twice daily and as needed (DME) OneTouch Verio test strips Strip See Rx Instructions .ROUTE .MEDSUPPLY Qty: 300 3RF Rx Instructions: Check 3 times a day and as needed (DME) lancets [OneTouch UltraSoft Lancets] Misc See Rx Instructions .ROUTE .MEDSUPPLY Qty: 300 3RF Rx Instructions: Check 3 times a day and as needed allopurinol 100 mg tablet 100 mg PO QHS Qty: 90 3RF albuterol sulfate 90 mcg/actuation HFA aerosol inhaler 2 puff INHALATION Q6H PRN (Reason: Wheezing) Qty: 8.5 6RF nystatin [Nyamyc] 100,000 unit/gram powder 1 applic topical BID PRN (Reason: skin infection) Qty: 30 1RF divalproex 125 mg capsule, delayed rel sprinkle 125 mg PO BID Qty: 180 3RF gabapentin 600 mg tablet 900 mg PO BID Qty: 180 3RF levothyroxine 112 mcg tablet 112 mcg PO MOTUWETHFR Qty: 90 3RF losartan 50 mg tablet 50 mg PO DAILY Qty: 90 3RF (DME) pen needle, diabetic [Lite Touch Insulin Pen [place]] 31 gauge x 5/16 needle See Rx Instructions .ROUTE .MEDSUPPLY Qty: 400 3RF Rx Instructions: 4 times dailly atorvastatin 80 mg tablet 80 mg PO QHS Qty: 90 3RF Rx Instructions: cholesterol pantoprazole 40 mg tablet,delayed release (DR/EC) 40 mg PO DAILY Qty: 90 3RF triamterene-hydrochlorothiazid 37.5-25 mg tablet 1 tab PO DAILY Qty: 90 3RF Primary Care Provider: Devi Delgado NP Referrals: Devi Delgado NP, NEURODIAGNOSTIC TECHNICIAN-C [Primary Care Provider] - Disposition Disposition: Home, Self Care What to do if you have Problems For any increased pain, shortness of breath, bleeding, nausea or vomiting, chestpain, or any unexpected problems, contact your Primary Care Provider. Call [facility] ([phone]) or report to the closest Emergency Room. Call 911 if necessary. 09/15/221928 <Electronically signed by Jozef Brar DO> Cosigner Signature (if applicable): CC: NEURODIAGNOSTIC TECHNICIANKori Delgado ~ Signed [facility] Work Phone: [phone]) 168-396303-20-[address] Schwartz [facility] August 08, 2022 9:08am Note Date/Time August 08, 2022 9:0 8am [facility] Medical Records Department [address] [place] [address] Discharge Summary 08/08/22 0904 MR#: [id number] Acct: [id number] Name: GLORIALETI Rep #:[id number] 1955 67 From: Bassem Schwartz MD PCP: Dr. Pat Bennett MD Status:ADM [place] [facility] [id number] Providers Date of Admission: 08/04/22 Date of Discharge: 08/08/22 Primary Care Physician: Dr. Pat Bennett MD Consultations 08/04/22 21:17 Consult: General Surgery Routine Consulting Provider: Dior Alva Reason for Consult: Ileus EMERGENT Consult: No MD Notified: Yes Date Notified: 08/04/22 Time Notified: 19:58 Method of Notification: Text Reason For Visit: ILEUS,PANCREATITS,SALVATORE Diagnosis Discharge Diagnosis (1) Ileus: Status: Acute Code(s): K56.7 - Ileus, unspecified (2) Acute pancreatitis: Status: Acute Code(s): K85.90 - Acute pancreatitis without necrosis or infection, unspecified Qualifiers: Pancreatitis type: unspecified pancreatitis type Acute pancreatitis complication: no infection or necrosis Qualified Code(s): K85.90 - Acute pancreatitis without necrosis or infection, unspecified (3) Acute kidney injury: Status: Acute Code(s): N17.9 - Acute kidney failure, unspecified (4) Anemia: Status: Acute Code(s): D64.9 - Anemia, unspecified (5) Sialoadenitis of submandibular gland: Status: Acute Code(s): K11.20 - Sialoadenitis, unspecified (6) Hypokalemia: Status: Acute Code(s): E87.6 - Hypokalemia (7) Hypocalcemia: Status: Acute Code(s): E83.51 - Hypocalcemia (8) Hypomagnesemia: Status: Acute Code(s): E83.42 - Hypomagnesemia Medications at Discharge Home Medications blood-glucose meter ([email or web address] Verio Flex Start kit) #1 ea 11/11/20 blood sugar diagnostic (OneTouch Verio test strips) #300 ea 11/12/20 lancets (Genio Studio LtdTouch UltraSoft Lancets) #300 ea 11/12/20 nitroglycerin 0.4 mg sublingual tablet (Nitrostat) 0.4 mg sublingual Q5-15M PRN chest pain #25 tabs 01/11/21 flash glucose sensor (FreeStyle Marilyn 14 Day Sensor kit) #2 ea 07/26/21 allopurinol 100 mg tablet 100 mg PO QHS gout #90 tabs 10/27/21 pantoprazole 40 mg tablet,delayed release 40 mg PO DAILY gerd #90 tabs 10/27/21 colestipol 1 gram tablet 1 g PO DAILY cholesterol 11/07/21 pen needle, diabetic 31 gauge x 5/16 (Lite Touch Insulin Pen [place]) #100 ea 11/10/21 albuterol sulfate 90 mcg/actuation aerosol inhaler 2 puff inhalation Q6H PRN Wheezing #8.5 grams 12/20/21 sucralfate 1 gram tablet (Carafate) 1 g PO BID Check with primary doctor 01/14/22 pen needle, diabetic 32 gauge x 5/32 (BD Ultra-Fine Sophia Pen Needle) #100 ea 02/07/22 nystatin 100,000 unit/gram topical powder (Nyamyc) 1 applic topical BID PRN skininfection #30 grams 03/09/22 divalproex 125 mg capsule,delayed release sprinkle 125 mg PO BID bipolar #180 caps 05/18/22 gabapentin 600 mg tablet 900 mg PO BID neuropathy #180 tabs 05/18/22 levothyroxine 112 mcg tablet 112 mcg PO MOTUWETHFR thyroid #90 tabs 05/18/22 apixaban 5 mg tablet (Eliquis) 5 mg PO BID Check with primary doctor 08/04/22 atorvastatin 80 mg tablet 80 mg PO QHS Check with primary doctor 08/04/22 carvedilol 6.25 mg tablet 6.25 mg PO BID Check with primary doctor 08/04/22 escitalopram oxalate 10 mg tablet (Lexapro) 20 mg PO DAILY Check with primary doctor 08/04/22 fluconazole 150 mg tablet (Diflucan) 150 mg PO DAILY PRN infection 08/04/22 insulin glargine 100 unit/mL (3 mL) subcutaneous pen (Lantus Solostar U-100 Insulin) 30 unit subcut QHS Check with primary doctor 08/04/22 insulin lispro 100 unit/mL subcutaneous pen (Humalog KwikPen (U-100) Insulin) 5 unit subcut TID Check with primary doctor 08/04/22 losartan 50 mg tablet 50 mg PO DAILY Check with primary doctor 08/04/22 semaglutide 1 mg/dose (4 mg/3 mL) subcutaneous pen injector (Ozempic) 1 mg subcut QWEEK Check with primary doctor 08/04/22 ticagrelor 90 mg tablet 90 mg PO BID Check with primary doctor 08/04/22 triamterene 37.5 mg-hydrochlorothiazide 25 mg tablet 1 tab PO DAILY bp 08/06/22 Hospital Course Summary of Care Provided Minutes Spent on Discharge: 32 Hospital Course: Patient is a 67-year-old lady who presented with nausea vomiting diagnosed ileusadmitted to regular nursing floor for further management 1. Ileus ? Managed conservatively 3. Sialadenitis ? Patient was managed symptomatically 3. Hypokalemia -Corrected per protocol 4. Coronary artery disease ? With previous stent placement 5. Gout ? Patient is on allopurinol did continue 6. Paroxysmal A-fib ? Rate controlled on systemic anticoagulation with Eliquis resumed on discharge 7. Dyslipidemia -Patient is on statin therapy, continued at home dose 8. Diabetes mellitus type II -patient's oral hypoglycemics held. Placed on long acting insulin, Accu-Cheks a.c. and at bedtime and covered with sliding scale insulin 9. Anemia - Secondary to chronic disorder monitoring H&H and transfuse if patient becomes symptomatic or hemoglobin falls below 7 10. Acute kidney injury ? Superimposed on chronic kidney disease stage IIIa managed IV fluid with subsequent monitoring of electrolyte 11. Hypertension - Blood pressure controlled, home medications continued with dose adjustment as needed Physical Exam Narrative GENERAL: cooperative HEENT: Atraumatic; normocephalic EYES; Anicteric, Normal Conjunctiva NECK; supple, normal thyroid, RESPIRATORY: Diminished to auscultation CARDIOVASCULAR: Regular S1 S2, GI: soft, normoactive bowel sounds, : No Renal angle tenderness; EXTREMITIES: No edema, no clubbing, MUSCULOSKELETAL: no muscle wasting NEURO: Awake; no lateralizing signs. SKIN: No Rash PSYCH; Flat affect Weight / BMI Weight Weight: 61.5 kg Body Mass Index (BMI) 27.3 ABG / Lab / Microbiology Data Result Diagrams: 08/08/22 05:20 08/08/22 05:20 Laboratory: Laboratory Results - last 24 hr 08/07/22 08:40: Vitamin B12 330, Vitamin D 25-Hydroxy 16.8 08/08/22 05:20: WBC 10.4, RBC 2.75 L, Hgb 8.2 L, Hct 25.3 L, MCV 92.0, MCH 29.8,MCHC 32.4, RDW Std Deviation 53.2 H, RDW Coeff of Yaw 15.9 H, Plt Count 296, MPV9.4, Immature Gran % (Auto) 1.000 H, Neut % (Auto) 83.5 H, Lymph % (Auto) 7.7 L,[place] % (Auto) 7.2, Eos % (Auto) 0.3, Baso % (Auto) 0.3, Absolute Neuts (auto) 8.7 H, Absolute Lymphs (auto) 0.80 L, Nucleated RBC % 0 08/08/22 05:20: Sodium 135 L, Potassium 3.3 L, Chloride 102, Carbon Dioxide 26.0, Anion Gap 7, BUN 13, Creatinine 1.09 H, Estim Creat Clear Calc 49.29, Est GFR (MDRD) Af Amer 65, Est GFR (MDRD) Non-Af 53 L, BUN/Creatinine Ratio 11.9, Glucose 112 H, Calcium 7.9 L, Magnesium 2.0 Microbiology: Microbiology 08/06/22 06:00 Stool Enteric Bacteriology - Final 08/06/22 06:00 Stool C. difficile DNA Amplification - Final 08/04/22 17:35 Nasal Secretion SARS-CoV-2 & FLU Antigen (Rapid) - Final D/C Instructions Discharge Diet: 1800 Calorie Control Diet Discharge Activity: Return to Normal Activity Call your doctor if you observe: Fever of 101 or Higher, Shortness of breath, Fainting spells and Chest pain Meaningful Use Info Meaningful Use Diagnoses (Choose all that apply): None applicable Discharge Plan Admission Admit Date/Time: 08/04/22 19:30 Attending Provider: Bassem Schwartz Primary Care Provider: Pat Bennett Consulting Providers: Dior Alva ; Daljit Mg ; Carrillo Buckley Discharge Orders/Prescriptions Prescriptions: Continued nitroglycerin [Nitrostat] 0.4 mg tablet, sublingual 0.4 mg sublingual Q5-15M PRN (Reason: chest pain) Qty: 25 3RF Rx Instructions: do not exceed 3 doses per episode sucralfate [Carafate] 1 gram tablet 1 g PO BID (DME) FreeStyle Marilyn 14 Day Sensor Kit See Rx Instructions .ROUTE .MEDSUPPLY Qty: 2 6RF Rx Instructions: As directed (DME) pen needle, diabetic [BD Ultra-Fine Sophia Pen Needle] 32 gauge x 5 needle See Rx Instructions .Route Qty: 100 5RF Rx Instructions: TID colestipol 1 gram Tablet 1 g PO DAILY losartan 50 mg tablet 50 mg PO DAILY atorvastatin 80 mg tablet 80 mg PO QHS Rx Instructions: cholesterol carvedilol 6.25 mg tablet 6.25 mg PO BID Rx Instructions: must administer with a meal/food fluconazole [Diflucan] 150 mg tablet 150 mg PO DAILY PRN (Reason: infection) Rx Instructions: administer on day 1 of therapy insulin lispro [Humalog KwikPen Insulin] 100 unit/mL insulin pen 5 unit subcut TID escitalopram oxalate [Lexapro] 10 mg tablet 20 mg PO DAILY insulin glargine [Lantus Solostar U-100 Insulin] 100 unit/mL (3 mL) insulin pen 30 unit subcut QHS ticagrelor 90 mg tablet 90 mg PO BID Eliquis 5 mg tablet 5 mg PO BID Ozempic 1 mg/dose (4 mg/3 mL) pen injector 1 mg subcut QWEEK Rx Instructions: q wed triamterene-hydrochlorothiazid 37.5-25 mg tablet 1 tab PO DAILY (DME) blood-glucose meter [OneTouch Verio Flex Start] Kit See Rx Instructions .ROUTE .MEDSUPPLY Qty: 1 0RF Rx Instructions: Twice daily and as needed (DME) OneTouch Verio test strips Strip See Rx Instructions .ROUTE .MEDSUPPLY Qty: 300 3RF Rx Instructions: Check 3 times a day and as needed (DME) lancets [OneTouch UltraSoft Lancets] Misc See Rx Instructions .ROUTE .MEDSUPPLY Qty: 300 3RF Rx Instructions: Check 3 times a day and as needed allopurinol 100 mg tablet 100 mg PO QHS Qty: 90 3RF pantoprazole 40 mg tablet,delayed release (DR/EC) 40 mg PO DAILY Qty: 90 3RF (DME) pen needle, diabetic [Lite Touch Insulin Pen [place]] 31 gauge x 5/16 needle See Rx Instructions .ROUTE .MEDSUPPLY Qty: 100 4RF Rx Instructions: As directed albuterol sulfate 90 mcg/actuation HFA aerosol inhaler 2 puff INHALATION Q6H PRN (Reason: Wheezing) Qty: 8.5 6RF nystatin [Nyamyc] 100,000 unit/gram powder 1 applic topical BID PRN (Reason: skin infection) Qty: 30 1RF divalproex 125 mg capsule, delayed rel sprinkle 125 mg PO BID Qty: 180 3RF gabapentin 600 mg tablet 900 mg PO BID Qty: 180 3RF levothyroxine 112 mcg tablet 112 mcg PO MOTUWETHFR Qty: 90 3RF Referrals / Follow Up: Pat Bennett MD [Primary Care Provider] - Within 1 Week Disposition Disposition (needs filled in before D/C Order can be placed): Home, Self Care Charges/Coding Visit Charges Inpatient E&M: 93148 Disch Hosp >30min 08/08/22 0908 <Electronically signed by Bassem Schwartz MD> Cosigner Signature (if applicable): CC: Dr. Bassem Schwartz MD; Dr. Pat Bennett MD~ Signed [facility] Work Phone: [phone] Buckley [facility] August 07, 2022 2:54pm Note Date/Time August 07, 2022 8:0 9am [facility] Medical Records Department [address] [place] [address] Progress Note - Hospitalist 08/07/22 0802 MR#: [id number] Acct: [id number] Name: LETI DELA CRUZ Rep #:[id number] : 1955 67 From: Carrillo Buckley DO PCP: Dr. Pat Bennett MD Status:ADM IN [facility] Reason for Visit Reason for Visit: Diagnoses Anemia, unspecified (08/04/22) Dehydration (08/04/22) Sialoadenitis, unspecified (08/04/22) Ileus, unspecified (08/04/22) Acute pancreatitis without necrosis or infection, unspecified (08/04/22) Acute kidney failure, unspecified (08/04/22) Unspecified abdominal pain (08/04/22) Diarrhea, unspecified (08/04/22) Personal history of other diseases of the circulatory system (08/04/22) Subjective Subjective Abdomen feeling well. Tolerating PO. Still with facial swelling. No difficulty swallowing. Objective Data Objective Data Vital Signs: Vital Signs Temp Pulse Resp BP Pulse Ox O2 Del Method 37.1 C 70 16 119/54 L 93 Room Air 08/07/22 02:52 08/07/22 02:52 08/07/22 02:52 08/07/22 02:52 08/07/22 02:52 08/07/22 02:52 Oxygen Delivery Method Room Air Weight: 61.5 kg Body Mass Index (BMI) 27.3 Intake & Output: Intake and Output for Last 24 Hours 08/05/22 08/06/22 08/07/22 23:59 23:59 23:59 Intake Total 2276.67 / 2276.67 3003.33 / 3303.33 1792.5 / 1792.5 Output Total 200 / 200 200 / 200 Balance 2076.67 / 2076.67 2803.33 / 3103.33 1792.5 / 1792.5 Lab / Micro Data Result Diagrams: 08/07/22 05:45 08/07/22 05:45 Labs: Laboratory Results - last 24 hr 08/07/22 05:45: WBC 7.9, RBC 2.81 L, Hgb 8.3 L, Hct 26.2 L, MCV 93.2, MCH 29.5, MCHC 31.7 L, RDW Std Deviation 53.9 H, RDW Coeff of Yaw 15.7 H, Plt Count 310, MPV 9.3, Immature Gran % (Auto) 0.900, Neut % (Auto) 81.0 H, Lymph % (Auto) 10.7L, [place] % (Auto) 6.8, Eos % (Auto) 0.3, Baso % (Auto) 0.3, Absolute Neuts (auto)6.4, Absolute Lymphs (auto) 0.85, Nucleated RBC % 0 08/07/22 05:45: Sodium 137, Potassium 3.1 L, Chloride 104, Carbon Dioxide 25.0, Anion Gap 8, BUN 16, Creatinine 1.02, Estim Creat Clear Calc 52.67, Est GFR (MDRD) Af Amer 70, Est GFR (MDRD) Non-Af 58 L, BUN/Creatinine Ratio 15.7, Glucose 151 H, Calcium 7.0 L, Total Bilirubin 0.30, AST 14 L, ALT 14, Alkaline Phosphatase 68, Total Protein 5.8 L, Albumin 2.5 L, Globulin 3.3, Albumin/Globulin Ratio 0.8 L Micro: Microbiology 08/06/22 06:00 Stool Enteric Bacteriology - Final 08/06/22 06:00 Stool C. difficile DNA Amplification - Final 08/04/22 17:35 Nasal Secretion SARS-CoV-2 & FLU Antigen (Rapid) - Final Radiography Diagnostic Testing: Radiology Impression KUB X-Ray 08/06/22 08:46 IMPRESSION: Persistent distention of small bowel suggestive of incomplete small bowel obstruction. Electronically Signed: Calvin Leonard MD at 11:33 EDT , Physical Exam Const alert and no apparent distress HEENT HEENT Narrative: cheek swelling bilaterally. submandibular swelling bilaterally. Eyes Eyes Narrative: no icterus Neck Neck Narrative: no thyromegaly. submandibular lymphadenopathy Resp normal respiratory effort, no retractions, no use of accessory muscles and clearto auscultation bilaterally Cardio regular rate, regular rhythm, S1 normal heart sound and S2 normal heart sound GI normal to inspection, nondistended, normoactive bowel sounds and soft to palpation Neuro oriented x3 Assessment & Plan Assessment/Plan (1) Ileus: PLAN: Resolved Impression of abdomen/pelvis CT by radiology: There is a possible ileus of the small bowel. There is no transition point noted. There is gradual normal tapering of the small bowel to a normal diameter at the level of the terminal ileum. Surveillance may be warranted. Small bowel follow-through is negative Tolerating diet (2) Acute pancreatitis: QUALIFIERS: Acute pancreatitis complication: no infection or necrosis Pancreatitis type: unspecified pancreatitis type Qualified Code(s): K85.90 - Acute pancreatitis without necrosis or infection, unspecified PLAN: Acute Pancreatitis Lipase level: 944. Highest lipase previously was 77 Calcium level is normal. Patient has a history of cholecystectomy. Triglycerides elevated, but only 320, therefore, not due to hypertriglyceridemia. Antiemetics and pain control as above. (3) Acute kidney injury: PLAN: Resolved SALVATORE on chronic kidney disease stage IIIa CKD Likely from Diabetic nephropathy Baseline creatinine of 1.2 Creatinine on admission was 1.75 IV hydration as above. Avoid nephrotoxins. (4) Anemia: PLAN: Hg dropped from 12.1 to 8.3 Suspect dilutional. Monitor Iron low at 14, Ferritin normal 63, but does not reule out iron-deficiency. Start ferrous sulfate. (5) Sialoadenitis of submandibular gland: PLAN: CAT scan showed findings suggestive of mild nonspecific Sailoadenitis involving the right submandibular and possibly parotid glands with reactive adenopathy. Patient to have either hard candy or mints to help with this resolution Suspect due to vomiting the patient was having. No stones were identified. Cannot rule out contrast-induced. Check viral panel. Warm compresses, Ketorolac (6) Hypokalemia: PLAN: Replace Check Mag (7) Hypocalcemia: PLAN: Replace Check Mag (8) Hypomagnesemia: PLAN: Complicated K and Ca. Replace PLAN: Plan Chronic conditions: * Diabetes mellitus Patient with hyperglycemia on presentation On home Ozempic, basal insulin and correction scale insulin. With patient being n.p.o. decrease dose of home basal insulin (10, down from 30) Accu-Chek with correction scale insulin ordered. * History of AfibStable. With ileus we will hold off anticoagulation at this time. Admit to [facility] with telemetry. * CAD status post stents Stable N.p.o.. Hold home antiplatelets. * Hypertension Blood pressure is not within goal DVT Prophylaxis SCDs ordered Charges/Coding Visit Charges Inpatient E&M: 67683 Subs Hosp L3 08/07/22 1152 <Electronically signed by Carrillo Buckley DO> Cosigner Signature (if applicable): CC: ~ Signed ADDENDUM by Dr. Carrillo Buckley DO on 08/07/22 at 1454 Addendum Still with facial swelling involving her cheeks and eyelids. No plethora. Also, denies any hematochezia nor melena. Will administer IV iron. Monitor overnight, if improved and labs stable, could be discharged. Will resume apixaban. 08/07/22 1454<Electronically signed by Carrillo Buckley DO> Cosigner Signature (if applicable): cc: ~* Signed [facility] Work Phone: [phone]) 277-590803-19-[address] Butler [facility] August 07, 2022 7:29am Note Date/Time August 07, 2022 7:2 9am [facility] Medical Records Department [address] [place] [address] Progress Note - Surgery 08/07/22727 MR#: [id number] Acct: [id number] Name: LETI DELA CRUZ Rep #:[id number] : 1955 67 From: Franck reyes MD PCP: Dr. Pat Bennett MD Status:ADM IN [facility] Subjective Subjective Patient reports she tolerated a regular diet and she is having no abdominal pain. She says the diarrhea is improving. She had no nausea overnight. She isstill complaining of a lot of facial and extremity swelling Objective Data Objective Data Vital Signs: Vital Signs Temp Pulse Resp BP Pulse Ox O2 Del Method 98.7 F 70 16 119/54 L 93 Room Air 08/07/22 02:52 08/07/22 02:52 08/07/22 02:52 08/07/22 02:52 08/07/22 02:52 08/07/22 02:52 Oxygen Delivery Method Room Air Weight: 135 lb 9.349 oz Body Mass Index (BMI) 27.3 Intake & Output: Intake and Output for Last 24 Hours 08/05/22 08/06/22 08/07/22 23:59 23:59 23:59 Intake Total 2276.67 / 2276.67 3003.33 / 3303.33 1792.5 / 1792.5 Output Total 200 / 200 200 / 200 Balance 2076.67 / 2076.67 2803.33 / 3103.33 1792.5 / 1792.5 Lab / Micro Data Result Diagrams: 08/07/22 05:45 08/07/22 05:45 Labs: Laboratory Results - last 24 hr 08/06/22 06:30: Sodium 136, Potassium 3.6, Chloride 100, Carbon Dioxide 26.0, Anion Gap 10, BUN 19 H, Creatinine 1.21 H, Estim Creat Clear Calc 44.40, Est GFR(MDRD) Af Amer 57 L, Est GFR (MDRD) Non-Af 47 L, BUN/Creatinine Ratio 15.7, Glucose 114 H, Calcium 7.7 L 08/07/22 05:45: WBC 7.9, RBC 2.81 L, Hgb 8.3 L, Hct 26.2 L, MCV 93.2, MCH 29.5, MCHC 31.7 L, RDW Std Deviation 53.9 H, RDW Coeff of Yaw 15.7 H, Plt Count 310, MPV 9.3, Immature Gran % (Auto) 0.900, Neut % (Auto) 81.0 H, Lymph % (Auto) 10.7L, [place] % (Auto) 6.8, Eos % (Auto) 0.3, Baso % (Auto) 0.3, Absolute Neuts (auto)6.4, Absolute Lymphs (auto) 0.85, Nucleated RBC % 0 08/07/22 05:45: Sodium 137, Potassium 3.1 L, Chloride 104, Carbon Dioxide 25.0, Anion Gap 8, BUN 16, Creatinine 1.02, Estim Creat Clear Calc 52.67, Est GFR (MDRD) Af Amer 70, Est GFR (MDRD) Non-Af 58 L, BUN/Creatinine Ratio 15.7, Glucose 151 H, Calcium 7.0 L, Total Bilirubin 0.30, AST 14 L, ALT 14, Alkaline Phosphatase 68, Total Protein 5.8 L, Albumin 2.5 L, Globulin 3.3, Albumin/Globulin Ratio 0.8 L Micro: Microbiology 08/06/22 06:00 Stool Enteric Bacteriology - Final 08/06/22 06:00 Stool C. difficile DNA Amplification - Final 08/04/22 17:35 Nasal Secretion SARS-CoV-2 & FLU Antigen (Rapid) - Final Radiography Diagnostic Testing: Radiology Impression KUB X-Ray 08/06/22 08:46 IMPRESSION: Persistent distention of small bowel suggestive of incomplete small bowel obstruction. Electronically Signed: Calvin Leonard MD at 11:33 EDT , Physical Exam Const oriented x3 Resp normal respiratory effort GI soft to palpation and non-tender Assessment & Plan Assessment/Plan (1) Ileus: PLAN: Patient is tolerating regular diet with no abdominal pain and she is having bowel function and the diarrhea is improved. Now that she is tolerating regular diet I recommend stopping IV fluids as the patient is still complaining of a lot of facial swelling as well as upper extremity swelling. I discussed this with the hospitalist. I do not believe there is anything surgically to do for this patient as she is tolerating regular diet with no abdominal pain. Franck Butler MD Pager: [facility] [address] [place], [address] [place] [address] Office: 08/07/22 1347 <Electronically signed by Franck Butler MD> Cosigner Signature (if applicable): CC: ~ Signed [facility] Work Phone: [phone] Buckley [facility] August 06, 2022 12:25pm Note Date/Time August 06, 2022 7:2 3am [facility] Medical Records Department [address] [place] [address] Progress Note - Hospitalist 08/06/22715 MR#: [id number] Acct: [id number] Name: LETI DELA CRUZ Rep #:[id number] : 1955 67 From: Carrillo Buckley DO PCP: Dr. Pat Bennett MD Status:ADM IN Location: [place] [address] Reason for Visit Reason for Visit: Diagnoses Anemia, unspecified (08/04/22) Dehydration (08/04/22) Ileus, unspecified (08/04/22) Acute pancreatitis without necrosis or infection, unspecified (08/04/22) Acute kidney failure, unspecified (08/04/22) Unspecified abdominal pain (08/04/22) Diarrhea, unspecified (08/04/22) Personal history of other diseases of the circulatory system (08/04/22) Subjective Subjective Still with facial pain and abdominal pain. Does not feel well. Objective Data Objective Data Vital Signs: Vital Signs Temp Pulse Resp BP Pulse Ox O2 Del Method 37.2 C 65 18 124/53 H 99 Room Air 08/06/22 05:57 08/06/22 05:57 08/06/22 05:57 08/06/22 05:57 08/06/22 05:57 08/06/22 05:57 Oxygen Delivery Method Room Air Weight: 61.5 kg Body Mass Index (BMI) 27.3 Intake & Output: Intake and Output for Last 24 Hours 08/04/22 08/05/22 08/06/22 23:59 23:59 23:59 Intake Total 1000 / 1000 2276.67 / 2276.67 825 / 825 Output Total 200 / 200 200 / 200 Balance 1000 / 1000 2076.67 / 2076.67 625 / 625 Lab / Micro Data Result Diagrams: 08/06/22 06:30 08/06/22 06:30 Labs: Laboratory Results - last 24 hr 08/05/22 05:14: Lipase 428 H 08/06/22 06:30: WBC 8.3, RBC 3.08 L, Hgb 9.2 L, Hct 29.1 L, MCV 94.5, MCH 29.9, MCHC 31.6 L, RDW Std Deviation 54.5 H, RDW Coeff of Yaw 15.9 H, Plt Count 365, MPV 9.2, Immature Gran % (Auto) 0.500, Neut % (Auto) 80.6 H, Lymph % (Auto) 11.7L, [place] % (Auto) 6.7, Eos % (Auto) 0.1, Baso % (Auto) 0.4, Absolute Neuts (auto)6.7, Absolute Lymphs (auto) 0.97, Nucleated RBC % 0 Micro: Microbiology 08/04/22 17:35 Nasal Secretion SARS-CoV-2 & FLU Antigen (Rapid) - Final Radiography Diagnostic Testing: Radiology Impression KUB X-Ray 08/05/22 07:27 IMPRESSION: Persistent small bowel obstruction or ileus. Electronically Signed: Kamille Lezama MD at 8:04 EDT , Small Bowel X-Ray 08/05/22 09:30 IMPRESSION: Normal small bowel follow-through study Electronically Signed: Neri Truong MD at 13:16 EDT , Soft Tissue Neck CT 08/05/22 14:52 IMPRESSION: Findings suggestive of mild nonspecific sialoadenitis involving the right submandibular and possibly parotid glands with reactive adenopathy.. No evidence for focal salivary gland mass, calculus or ductal dilatation Electronically Signed: Nadeem Oscar MD at 16:32 EDT , Physical Exam Const alert and no apparent distress HEENT head/scalp atraumatic, moist oral mucous membranes, oropharynx normal and dentition normal HEENT Narrative: submandinular swelling. parotid swelling. Resp normal respiratory effort, no retractions, no use of accessory muscles and clearto auscultation bilaterally Cardio regular rate, regular rhythm, S1 normal heart sound and S2 normal heart sound GI normal to inspection, nondistended, normoactive bowel sounds, soft to palpation and non-tender Assessment & Plan Assessment/Plan (1) Ileus: PLAN: Impression of abdomen/pelvis CT by radiology: There is a possible ileus ofthe small bowel. There is no transition point noted. There is gradual normal tapering of the small bowel to a normal diameter at the level of the terminal ileum. Surveillance may be warranted. Small bowel follow-through is negative Diet has since been advanced (2) Acute pancreatitis: QUALIFIERS: Acute pancreatitis complication: no infection or necrosis Pancreatitis type: unspecified pancreatitis type Qualified Code(s): K85.90 - Acute pancreatitis without necrosis or infection, unspecified PLAN: Acute Pancreatitis Lipase level: 944. Highest lipase previously was 77 Calcium level is normal. Patient has a history of cholecystectomy. Triglycerides elevated, but only 320, therefore, not due to hypertriglyceridemia. Lactated Ringer's at 100 ml/hr Antiemetics and pain control as above. (3) Acute kidney injury: PLAN: Improved SALVATORE on chronic kidney disease stage IIIa CKD Likely from Diabetic nephropathy Baseline creatinine of 1.2 Creatinine on admission was 1.75 IV hydration as above. Avoid nephrotoxins. (4) Anemia: PLAN: Hg dropped from 12.1 to 9.2 Suspect dilutional. Monitor (5) Sialoadenitis of submandibular gland: PLAN: CAT scan showed findings suggestive of mild nonspecific Sailoadenitis involving the right submandibular and possibly parotid glands with reactive adenopathy. Patient to have either hard candy or mints to help with this resolution Suspect due to vomiting the patient was having. No stones were identified. Cannot rule out contrast-induced. Check viral panel. Warm compresses, Ketorolac PLAN: Plan Chronic conditions: * Diabetes mellitus Patient with hyperglycemia on presentation On home Ozempic, basal insulin and correction scale insulin. With patient being n.p.o. decrease dose of home basal insulin (10, down from 30) Accu-Chek with correction scale insulin ordered. * History of AfibStable. With ileus we will hold off anticoagulation at this time. Admit to [facility] with telemetry. * CAD status post stents Stable N.p.o.. Hold home antiplatelets. * Hypertension Blood pressure is not within goal Home blood pressure medication held secondary to n.p.o. status. As needed hydralazine IV ordered. Trend blood pressure and adjust blood pressure medications. DVT Prophylaxis SCDs ordered Charges/Coding Visit Charges Inpatient E&M: 34575 Subs Hosp L2 08/06/22 1225 <Electronically signed by Carrillo Buckley DO> Cosigner Signature (if applicable): CC: ~ Signed [facility] [facility] Work Phone: [phone]) 671-523603-18-[address] Butler [facility] August 06, 2022 8:26am Note Date/Time August 06, 2022 8:2 4am [facility] Medical Records Department [address] [place] [address] Progress Note - Surgery 08/06/22 0824 MR#: [id number] Acct: [id number] Name: LETI DELA CRUZ Rep #:[id number] : 1955 67 From: Franck reyes MD PCP: Dr. Pat Bennett MD Status:ADM IN [place] [id number] Subjective Subjective Patient was very nauseous this morning when I rounded on her and she says she has been having loose bowel movements. She is complaining of headache and facial swelling and nausea. She does not have any distinct or punctate abdominal pain. Objective Data Objective Data Vital Signs: Vital Signs Temp Pulse Resp BP Pulse Ox O2 Del Method 98.8 F 64 18 135/65 H 98 Room Air 08/06/22 08:14 08/06/22 08:14 08/06/22 08:14 08/06/22 08:14 08/06/22 08:14 08/06/22 08:17 Oxygen Delivery Method Room Air Weight: 135 lb 9.349 oz Body Mass Index (BMI) 27.3 Intake & Output: Intake and Output for Last 24 Hours 08/04/22 08/05/22 08/06/22 23:59 23:59 23:59 Intake Total 1000 / 1000 2276.67 / 2276.67 825 / 825 Output Total 200 / 200 200 / 200 Balance 1000 / 1000 2076.67 / 2076.67 625 / 625 Lab / Micro Data Result Diagrams: 08/06/22 06:30 08/06/22 06:30 Labs: Laboratory Results - last 24 hr 08/05/22 05:14: Lipase 428 H 08/06/22 06:30: WBC 8.3, RBC 3.08 L, Hgb 9.2 L, Hct 29.1 L, MCV 94.5, MCH 29.9, MCHC 31.6 L, RDW Std Deviation 54.5 H, RDW Coeff of Yaw 15.9 H, Plt Count 365, MPV 9.2, Immature Gran % (Auto) 0.500, Neut % (Auto) 80.6 H, Lymph % (Auto) 11.7L, [place] % (Auto) 6.7, Eos % (Auto) 0.1, Baso % (Auto) 0.4, Absolute Neuts (auto)6.7, Absolute Lymphs (auto) 0.97, Nucleated RBC % 0 08/06/22 06:30: Sodium 136, Potassium 3.6, Chloride 100, Carbon Dioxide 26.0, Anion Gap 10, BUN 19 H, Creatinine 1.21 H, Estim Creat Clear Calc 44.40, Est GFR(MDRD) Af Amer 57 L, Est GFR (MDRD) Non-Af 47 L, BUN/Creatinine Ratio 15.7, Glucose 114 H, Calcium 7.7 L Micro: Microbiology 08/04/22 17:35 Nasal Secretion SARS-CoV-2 & FLU Antigen (Rapid) - Final Radiography Diagnostic Testing: Radiology Impression Small Bowel X-Ray 08/05/22 09:30 IMPRESSION: Normal small bowel follow-through study Electronically Signed: Neri Truong MD at 13:16 EDT , Soft Tissue Neck CT 08/05/22 14:52 IMPRESSION: Findings suggestive of mild nonspecific sialoadenitis involving the right submandibular and possibly parotid glands with reactive adenopathy.. No evidence for focal salivary gland mass, calculus or ductal dilatation Electronically Signed: Nadeem Oscar MD at 16:32 EDT , Physical Exam Const oriented x3 General Appearance: ill appearing Resp normal respiratory effort GI soft to palpation and non-tender Assessment & Plan Assessment/Plan (1) Ileus: PLAN: There is question of possible bowel obstruction. The patient had small bowel follow-through yesterday which showed transit into the colon. Patient didhave soft loose bowel movements through the night likely due to the contrast. She was very nauseated this morning and she has very nonspecific complaints likea headache and sore throat and facial swelling. Unsure as to why all of the symptoms are occurring but I believe she may have some systemic viral illness going on. Influenza and COVID were negative yesterday. Lipase was returned normal and unsure if it was pancreatitis all as it was only mildly elevated. Her creatinine and white count are improving. I do not believe there is any surgical indication at this time. Franck Butler MD Pager: [facility] [address] [place] [address], [address] [place] [address] Office: 08/06/22 0826 <Electronically signed by Franck Butler MD> Cosigner Signature (if applicable): CC: ~ Signed [facility] Work Phone: [phone]) [phone] Alva [facility] August 05, 2022 8:58pm Note Date/Time August 05, 2022 7:2 6am [facility] Medical Records Department [address] [place], [place] [address]jess[place] [address] Consultation - Surgical 08/05/22 0724 MR#: [id number] Acct: [id number] Name: LETI DELA CRUZ Rep #:[id number] : 1955 67 From: Dior Alva MD PCP: Dr. Pat Bennett MD Status:ADM IN Location: [place] [id number] Assessment & Plan Assessment/Plan (1) Abdominal pain: (2) Diarrhea: PLAN: Plan Okay for clears patient states she is having diarrhea all night abdominal pain is better. We will check KUB if KUB looks okay likely advance diet. Patient seems to have a cycle of constipation and diarrhea we will discuss importance offiber in her diet later today. Addendum: KUB is still questions possible ileus versus obstruction. We will geta small bowel follow-through. Dior Alva M.D. Pager: [phone] [facility] [address] [place] [address], [facility], [address] [place] [address] Office: [phone] HPI Consult Data Date of Consult: 08/05/22 HPI Narrative HPI Narrative: LETI DELA CRUZ, is a 67 F who presents to the ER due to abdominal pain starting the night before last, patient had nausea/vomiting and diarrhea after that. Patient currently states her abdominal pain is improved she had diarrhea all night. Patient denies any nausea or vomiting currently. CT abdomen pelvis done showed possible ileus with dilated small bowel some fluid in the right sideof the colon. Patient states that prior to the pain she was having bowel movements daily. But patient does have cycles of hard stools then diarrhea. Patient states she tried to take Metamucil previously does not feel like it worked. Patient is unsure of much fiber she gets in her diet. Patient states she is on sucralfate and believes that this for her bowels. [facility] Medical History (Updated 08/05/22 @ 07:[address] Carrillo Jopperi, DO) Acute kidney injury superimposed on chronic kidney disease Atherosclerotic heart disease of [place] coronary artery without angina pectoris Atrial fibrillation Bipolar disorder Chest congestion Chronic pancreatic insufficiency Dehydration Depression Diabetes Essential hypertension Fibromyalgia affecting multiple sites Generalized OA Gout Hiatal hernia Hip pain, bilateral Hypertension Hypomagnesemia Hypotension Hypothyroidism Near syncope Overweight (BMI 25.0-29.9) Polyneuropathy due to type 2 diabetes mellitus Pre-op evaluation Shoulder pain, bilateral Tachybradycardia syndrome 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 GFR 30-59 Umbilical hernia Home Medications blood-glucose meter (MedPageToday Verio Flex Start kit) #1 ea 11/11/20 [Rx Last Taken Unknown] blood sugar diagnostic (Genio Studio LtdTouch Verio test strips) #300 ea 11/12/20 [Rx Last Taken Unknown] lancets (c4cast.comuch UltraSoft Lancets) #300 ea 11/12/20 [Rx Last Taken Unknown] nitroglycerin 0.4 mg sublingual tablet (Nitrostat) 0.4 mg sublingual Q5-15M PRN chest pain #25 tabs 01/11/21 [Rx Last Taken Unknown] flash glucose sensor (FreeStyle Marilyn 14 Day Sensor kit) #2 ea 07/26/21 [Rx Last Taken Unknown] allopurinol 100 mg tablet 100 mg PO QHS gout #90 tabs 10/27/21 [Rx Last Taken 08/03/22] pantoprazole 40 mg tablet,delayed release 40 mg PO DAILY gerd #90 tabs 10/27/21 [Rx Last Taken 08/03/22] colestipol 1 gram tablet 1 g PO DAILY cholesterol 11/07/21 [History Last Taken 08/03/22] pen needle, diabetic 31 gauge x 5/16 (Lite Touch Insulin Pen [place]) #100 ea 11/10/21 [Rx Last Taken Unknown] albuterol sulfate 90 mcg/actuation aerosol inhaler 2 puff inhalation Q6H PRN Wheezing #8.5 grams 12/20/21 [Rx Last Taken 07/30/22] sucralfate 1 gram tablet (Carafate) 1 g PO BID Check with primary doctor 01/14/22 [History Last Taken 08/03/22] pen needle, diabetic 32 gauge x 5/32 (BD Ultra-Fine Sophia Pen Needle) #100 ea 02/07/22 [Rx Last Taken Unknown] nystatin 100,000 unit/gram topical powder (Nyamyc) 1 applic topical BID PRN skininfection #30 grams 03/09/22 [Rx Last Taken Unknown] divalproex 125 mg capsule,delayed release sprinkle 125 mg PO BID bipolar #180 caps 05/18/22 [Rx Last Taken 08/03/22] gabapentin 600 mg tablet 900 mg PO BID neuropathy #180 tabs 05/18/22 [Rx Last Taken 08/03/22] levothyroxine 112 mcg tablet 112 mcg PO MOTUWETHFR thyroid #90 tabs 05/18/22 [Rx Last Taken 08/04/22] metoclopramide HCl 10 mg tablet 10 mg PO Q12H PRN PRN nausea or headache #12 tabs 07/20/22 [Rx Last Taken Unknown] apixaban 5 mg tablet (Eliquis) 5 mg PO BID Check with primary doctor 08/04/22 [History Last Taken 08/03/22] atorvastatin 80 mg tablet 80 mg PO QHS Check with primary doctor 08/04/22 [History Last Taken 08/03/22] carvedilol 6.25 mg tablet 6.25 mg PO BID Check with primary doctor 08/04/22 [History Last Taken 08/03/22] escitalopram oxalate 10 mg tablet (Lexapro) 10 mg PO DAILY Check with primary doctor 08/04/22 [History Last Taken 08/03/22] fluconazole 150 mg tablet (Diflucan) 150 mg PO DAILY PRN infection 08/04/22 [History Last Taken Unknown] insulin glargine 100 unit/mL (3 mL) subcutaneous pen (Lantus Solostar U-100 Insulin) 30 unit subcut QHS Check with primary doctor 08/04/22 [History Last Taken 08/03/22] insulin lispro 100 unit/mL subcutaneous pen (Humalog KwikPen (U-100) Insulin) 5 unit subcut TID Check with primary doctor 08/04/22 [History Last Taken 08/03/22] losartan 50 mg tablet 50 mg PO DAILY Check with primary doctor 08/04/22 [History Last Taken 08/03/22] semaglutide 1 mg/dose (4 mg/3 mL) subcutaneous pen injector (Ozempic) 1 mg subcut QWEEK Check with primary doctor 08/04/22 [History Last Taken 08/02/22] ticagrelor 90 mg tablet 90 mg PO BID Check with primary doctor 08/04/22 [History Last Taken 08/03/22] Allergy/AdvReac Type Severity Reaction Status Date / Time duloxetine [From Cymbalta] Allergy Itching Verified 08/04/22 21:08 tomato Allergy Itching Verified 08/04/22 21:08 isosorbide AdvReac Intermediate Other Verified 08/04/22 21:11 adhesive tape [plastic tape] AdvReac Rash Verified 08/04/22 21:08 Family History Sister COPD (chronic obstructive pulmonary disease) Mother COPD (chronic obstructive pulmonary disease) Hypertension Alzheimer's dementia without behavioral disturbance Alzheimer's dementia Father Diabetes Hypertension Myocardial infarction Surgical History History of laparoscopic appendectomy History of total abdominal hysterectomy Hx of cholecystectomy Hx of shoulder surgery Presence of stent in coronary artery (~09/06/21) Social History Smoking Status: Current every day smoker tobacco type: cigarettes alcohol intake: never substance use type: does not use caffeine: No what type of physical activity do you participate in: none ROS Constitutional Constitutional: Reports anorexia Eyes Eyes: Denies change in vision ENT HEENT: Reports neck pain; Denies dysphagia Cardiovascular Cardiovascular: Denies chest pain Respiratory/Chest Respiratory/Chest: Denies cough Gastrointestinal Gastrointestinal: Reports abdominal pain, constipation, diarrhea, nausea and vomiting; Denies melena Genitourinary Genitourinary: Denies dysuria Musculoskeletal Musculoskeletal: Reports joint swelling Integumentary Integumentary: Denies jaundice Neurologic Neurologic: Denies focal weakness Psychiatric Psychiatric: Denies depression Hematologic/Lymphatic Hematologic/Lymphatic: Denies easy bleeding Physical Exam Const alert, oriented x3, no apparent distress and healthy appearing HEENT normocephalic and head/scalp atraumatic Resp normal respiratory effort Cardio regular rate GI soft to palpation; Negative for non-distended Palpation: tender epigastric (Minimally tender patient states could be from previous vomiting); Negative for guarding Extremity no clubbing, cyanosis or edema Neuro CN's II-XII intact bilaterally Psych mental status grossly normal Lab / Micro Data Result Diagrams: 08/05/22 05:14 08/05/22 05:14 Labs: Laboratory Results - last 24 hr 08/04/22 17:35: WBC 14.3 H, RBC 4.04 L, Hgb 12.1, Hct 37.4, MCV 92.6, MCH 30.0, MCHC 32.4, RDW Std Deviation 52.5 H, RDW Coeff of Yaw 15.5 H, Plt Count 555 H, MPV 9.3, Immature Gran % (Auto) 1.300 H, Neut % (Auto) 82.0 H, Lymph % (Auto) 10.5 L, [place] % (Auto) 5.1, Eos % (Auto) 0.5, Baso % (Auto) 0.6, Absolute Neuts (auto) 11.8 H, Absolute Lymphs (auto) 1.51, Nucleated RBC % 0 08/04/22 17:35: Sodium 131 L, Potassium 5.3 H, Chloride 99, Carbon Dioxide 23.0,Anion Gap 9, BUN 36 H, Creatinine 1.75 H, Estim Creat Clear Calc 31.55, Est GFR (MDRD) Af Amer 37 L, Est GFR (MDRD) Non-Af 31 L, BUN/Creatinine Ratio 20.6 H, Glucose 255 H, Calcium 8.9, Total Bilirubin 0.60, AST 10 L, ALT 18, Alkaline Phosphatase 103, Total Protein 8.1, Albumin 3.7, Globulin 4.4 H, Albumin/Globulin Ratio 0.8 L, Lipase 944 H 08/05/22 05:14: WBC 10.7, RBC 3.28 L, Hgb 9.8 L, Hct 31.2 L, MCV 95.1, MCH 29.9,MCHC 31.4 L, RDW Std Deviation 55.0 H, RDW Coeff of Yaw 15.8 H, Plt Count 420, MPV 9.2, Immature Gran % (Auto) 0.800, Neut % (Auto) 66.9, Lymph % (Auto) 21.4, [place] % (Auto) 8.7, Eos % (Auto) 1.9, Baso % (Auto) 0.3, Absolute Neuts (auto) 7.1, Absolute Lymphs (auto) 2.28, Nucleated RBC % 0 08/05/22 05:14: Sodium 137, Potassium 4.4, Chloride 107, Carbon Dioxide 23.0, Anion Gap 7, BUN 35 H, Creatinine 1.29 H, Estim Creat Clear Calc 41.65, Est GFR (MDRD) Af Amer 53 L, Est GFR (MDRD) Non-Af 44 L, BUN/Creatinine Ratio 27.1 H, Glucose 116 H, Calcium 7.7 L, Triglycerides 320 H, Cholesterol 173, LDL Cholesterol 63, VLDL Cholesterol 64 H, HDL Cholesterol 46 Micro: Microbiology 08/04/22 17:35 Nasal Secretion SARS-CoV-2 & FLU Antigen (Rapid) - Final Radiology Impression Abdomen/Pelvis CT 08/04/22 17:20 IMPRESSION: (NOT LISTED IN ORDER OF SIGNIFICANCE) There is a possible ileus of the small bowel. There is no transition point noted. There is gradual normal tapering of the small bowel to a normal diameter at the level of the terminal ileum. Surveillance may be warranted. Other findings as above. Electronically Signed: Nabeel Andersen MD at 19:18 EDT , Chest X-Ray 08/04/22 18:25 IMPRESSION: No radiographic evidence of acute cardiopulmonary disease. Electronically Signed: Nabeel Andersen MD at 18:46 EDT , Charges/Coding Visit Charges Inpatient E&M: 65847 Init Hosp L3 08/05/222057 <Electronically signed by Dior Alva MD> Cosigner Signature (if applicable): CC: Dr. Daljit Mg MD; Dr. Pat Bennett MD; Dr. Dior Alva MD~ Signed [facility] Work Phone: [phone]) 348-585703-17-[address] Buckley [facility] August 05, 2022 2:52pm Note Date/Time August 05, 2022 7:2 8am [facility] Medical Records Department [address] [place] [address] Progress Note - Hospitalist 08/05/22 0721 MR#: [id number] Acct: [id number] Name: LETI DELA CRUZ Rep #:[id number] : 1955 67 From: Carrillo Buckley DO PCP: Dr. Pat Bennett MD Status:ADM IN Location: [place] [address] Reason for Visit Reason for Visit: Diagnoses Dehydration (08/04/22) Ileus, unspecified (08/04/22) Acute pancreatitis without necrosis or infection, unspecified (08/04/22) Acute kidney failure, unspecified (08/04/22) Personal history of other diseases of the circulatory system (08/04/22) Subjective Subjective Drinking contrast and just feels nauseated with that. Abdomen not feeling any better. Objective Data Objective Data Vital Signs: Vital Signs Temp Pulse Resp BP Pulse Ox O2 Del Method 36.6 C 59 L 16 123/51 H 95 Room Air 08/05/22 02:44 08/05/22 02:44 08/05/22 02:44 08/05/22 02:44 08/05/22 02:44 08/05/22 02:44 Oxygen Delivery Method Room Air Weight: 61.5 kg Body Mass Index (BMI) 27.3 Intake & Output: Intake and Output for Last 24 Hours 08/03/22 08/04/22 08/05/22 23:59 23:59 23:59 Intake Total 1000 / 1000 876.67 / 876.67 Balance 1000 / 1000 876.67 / 876.67 Lab / Micro Data Result Diagrams: 08/05/22 05:14 08/05/22 05:14 Labs: Laboratory Results - last 24 hr 08/04/22 17:35: WBC 14.3 H, RBC 4.04 L, Hgb 12.1, Hct 37.4, MCV 92.6, MCH 30.0, MCHC 32.4, RDW Std Deviation 52.5 H, RDW Coeff of Yaw 15.5 H, Plt Count 555 H, MPV 9.3, Immature Gran % (Auto) 1.300 H, Neut % (Auto) 82.0 H, Lymph % (Auto) 10.5 L, [place] % (Auto) 5.1, Eos % (Auto) 0.5, Baso % (Auto) 0.6, Absolute Neuts (auto) 11.8 H, Absolute Lymphs (auto) 1.51, Nucleated RBC % 0 08/04/22 17:35: Sodium 131 L, Potassium 5.3 H, Chloride 99, Carbon Dioxide 23.0,Anion Gap 9, BUN 36 H, Creatinine 1.75 H, Estim Creat Clear Calc 31.55, Est GFR (MDRD) Af Amer 37 L, Est GFR (MDRD) Non-Af 31 L, BUN/Creatinine Ratio 20.6 H, Glucose 255 H, Calcium 8.9, Total Bilirubin 0.60, AST 10 L, ALT 18, Alkaline Phosphatase 103, Total Protein 8.1, Albumin 3.7, Globulin 4.4 H, Albumin/Globulin Ratio 0.8 L, Lipase 944 H 08/05/22 05:14: WBC 10.7, RBC 3.28 L, Hgb 9.8 L, Hct 31.2 L, MCV 95.1, MCH 29.9,MCHC 31.4 L, RDW Std Deviation 55.0 H, RDW Coeff of Yaw 15.8 H, Plt Count 420, MPV 9.2, Immature Gran % (Auto) 0.800, Neut % (Auto) 66.9, Lymph % (Auto) 21.4, [place] % (Auto) 8.7, Eos % (Auto) 1.9, Baso % (Auto) 0.3, Absolute Neuts (auto) 7.1, Absolute Lymphs (auto) 2.28, Nucleated RBC % 0 08/05/22 05:14: Sodium 137, Potassium 4.4, Chloride 107, Carbon Dioxide 23.0, Anion Gap 7, BUN 35 H, Creatinine 1.29 H, Estim Creat Clear Calc 41.65, Est GFR (MDRD) Af Amer 53 L, Est GFR (MDRD) Non-Af 44 L, BUN/Creatinine Ratio 27.1 H, Glucose 116 H, Calcium 7.7 L, Triglycerides 320 H, Cholesterol 173, LDL Cholesterol 63, VLDL Cholesterol 64 H, HDL Cholesterol 46 Micro: Microbiology 08/04/22 17:35 Nasal Secretion SARS-CoV-2 & FLU Antigen (Rapid) - Final Radiography Diagnostic Testing: Radiology Impression Abdomen/Pelvis CT 08/04/22 17:20 IMPRESSION: (NOT LISTED IN ORDER OF SIGNIFICANCE) There is a possible ileus of the small bowel. There is no transition point noted. There is gradual normal tapering of the small bowel to a normal diameter at the level of the terminal ileum. Surveillance may be warranted. Other findings as above. Electronically Signed: Nabeel Andersen MD at 19:18 EDT , Chest X-Ray 08/04/22 18:25 IMPRESSION: No radiographic evidence of acute cardiopulmonary disease. Electronically Signed: Nabeel Andersen MD at 18:46 EDT , Physical Exam Const Constitutional Narrative: Up at the side of the bed. Drinking contrast. Uncomfortable. Resp normal respiratory effort, no retractions, no use of accessory muscles and clearto auscultation bilaterally Cardio regular rate, regular rhythm, S1 normal heart sound and S2 normal heart sound GI normal to inspection, nondistended, normoactive bowel sounds, soft to palpation,non-tender and non-distended Assessment & Plan Assessment/Plan (1) Ileus: PLAN: Impression of abdomen/pelvis CT by radiology: There is a possible ileus ofthe small bowel. There is no transition point noted. There is gradual normal tapering of the small bowel to a normal diameter at the level of the terminal ileum. Surveillance may be warranted. Morphine IV as needed and Zofran IV as needed ordered. We will keep NPO. IV fluids ordered. General surgery consult. (2) Acute pancreatitis: QUALIFIERS: Acute pancreatitis complication: no infection or necrosis Pancreatitis type: unspecified pancreatitis type Qualified Code(s): K85.90 - Acute pancreatitis without necrosis or infection, unspecified PLAN: Acute Pancreatitis Lipase level: 944. Highest lipase previously was 77 Calcium level is normal. Patient has a history of cholecystectomy. Triglycerides elevated, but only 320, therefore, not due to hypertriglyceridemia. Lactated Ringer's at 100 ml/hr Antiemetics and pain control as above. (3) Acute kidney injury: PLAN: Improved SALVATORE on chronic kidney disease stage IIIa CKD Likely from Diabetic nephropathy Baseline creatinine of 1.2 Creatinine on admission was 1.75 IV hydration as above. Avoid nephrotoxins. (4) Anemia: PLAN: Hg dropped from 12.1 to 9.8. Unclear if dilutional. Monitor PLAN: Plan Chronic conditions: * Diabetes mellitus Patient with hyperglycemia on presentation On home Ozempic, basal insulin and correction scale insulin. With patient being n.p.o. decrease dose of home basal insulin (10, down from 30) Accu-Chek with correction scale insulin ordered. * History of AfibStable. With ileus we will hold off anticoagulation at this time. Admit to [facility] with telemetry. * CAD status post stents Stable N.p.o.. Hold home antiplatelets. * Hypertension Blood pressure is not within goal Home blood pressure medication held secondary to n.p.o. status. As needed hydralazine IV ordered. Trend blo od pressure and adjust blood pressure medications. DVT Prophylaxis SCDs ordered Charges/Coding Visit Charges Inpatient E&M: 59213 Subs Hosp L2 08/05/22 1156 <Electronically signed by Carrillo Buckley DO> Cosigner Signature (if applicable): CC: ~ Signed ADDENDUM by Dr. Carrillo Buckley DO on 08/05/22 at 1452 Addendum Patient with swelling on the right side of her face as well as underneath her jaw. States that extending up into her eyes. On exam patient has submandibularswelling with tenderness to palpation. No fluctuance noted. Does have some mild swelling over the right aspect of her face and below her eye. Visualize her mouth did not show any obvious oral lesions. Unclear etiology but could be related with parotitis or submandibular gland inflammation perhaps due to the vomiting. We will check a CAT scan to see if there is any acute process contributing to this. 08/05/22 1452<Electronically signed by Carrillo Buckley DO> Cosigner Signature (if applicable): cc: ~* Signed [facility] Work Phone: [phone]) 193-933003-17-[address] Hernandez [facility] August 04, 2022 11:09pm Note Date/Time August 04, 2022 5:2 8pm [facility] Medical Records Department [address] [place] [address] Emergency Department Summary 08/04/22 MR#: [id number] Acct: [id number] Name: LETI DELA CRUZ Rep #:[id number] : 1955 67 From: Sanju Hernandez MD PCP: Dr. Pat Bennett MD Status:ADM IN Location: [place] [address] HPI History of Present Illness Chief Complaint: General Illness Informant: patient Onset/Context/Timing Onset: Today Context: Gradual Onset Timing: Continuous Current Severity: Mild Maximum Severity: Mild Narrative Narrative: 67-year-old female extensive past medical history hypertension, diabetes, A-fib on Eliquis. History of CAD with 5 cardiac stents. Chronic kidney disease. States last night and today has had nausea vomiting diarrhea and a nonproductivecough. No chills highest temperature was 99. No dysuria. Lower abdominal discomfort. Clear sputum. No recent hospitalization. Prior similar symptoms: Yes Recent Illness/Hospitalization: No PFSH PFSH Medical History Acute kidney injury superimposed on chronic kidney disease Atherosclerotic heart disease of [place] coronary artery without angina pectoris Atrial fibrillation Bipolar disorder Chest congestion Chronic pancreatic insufficiency Dehydration Depression Diabetes Essential hypertension Fibromyalgia affecting multiple sites Generalized OA Hip pain, bilateral Hypertension Hypomagnesemia Hypotension Near syncope Overweight (BMI 25.0-29.9) Polyneuropathy due to type 2 diabetes mellitus Pre-op evaluation Shoulder pain, bilateral Tachybradycardia syndrome 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 GFR 30-59 Home Medications blood-glucose meter (MedPageToday Verio Flex Start kit) #1 ea 11/11/20 [Rx Last Taken Unknown] blood sugar diagnostic ([email or web address].comuch Verio test strips) #300 ea 11/12/20 [Rx Last Taken Unknown] lancets (Genio Studio LtdTouch UltraSoft Lancets) #300 ea 11/12/20 [Rx Last Taken Unknown] nitroglycerin 0.4 mg sublingual tablet (Nitrostat) 0.4 mg sublingual Q5-15M PRN chest pain #25 tabs 01/11/21 [Rx Last Taken Unknown] flash glucose sensor (FreeStyle Marilyn 14 Day Sensor kit) #2 ea 07/26/21 [Rx Last Taken Unknown] allopurinol 100 mg tablet 100 mg PO QHS gout #90 tabs 10/27/21 [Rx Last Taken 11/06/21] apixaban 5 mg tablet (Eliquis) 5 mg PO BID #180 tabs 10/27/21 [Rx Last Taken 11/06/21] carvedilol 6.25 mg tablet 6.25 mg PO BID #180 tabs 10/27/21 [Rx Last Taken 11/06/21] pantoprazole 40 mg tablet,delayed release 40 mg PO DAILY gerd #90 tabs 10/27/21 [Rx Last Taken 11/06/21] colestipol 1 gram tablet 1 g PO DAILY cholesterol 11/07/21 [History Last Taken 11/06/21] pen needle, diabetic 31 gauge x 5/16 (Lite Touch Insulin Pen [place]) #100 ea 11/10/21 [Rx Last Taken Unknown] albuterol sulfate 90 mcg/actuation aerosol inhaler 2 puff inhalation Q6H PRN Wheezing #8.5 grams 12/20/21 [Rx Last Taken Unknown] losartan 50 mg tablet 50 mg PO DAILY #1 TAB 01/14/22 [Rx Last Taken Unknown] sucralfate 1 gram tablet (Carafate) 1 g PO BID 01/14/22 [History Last Taken Unknown] pen needle, diabetic 32 gauge x 5/32 (BD Ultra-Fine Sophia Pen Needle) #100 ea 02/07/22 [Rx Last Taken Unknown] insulin glargine 100 unit/mL (3 mL) subcutaneous pen (Lantus Solostar U-100 Insulin) 30 unit (0.3 mL) subcut DAILY #27 mL 02/09/22 [Rx Last Taken Unknown] Humalog KwikPen Insulin 100 unit/mL subcutaneous (insulin lispro) 5 unit (0.05 mL) subcut TID #15 mL 02/21/22 [Rx Last Taken Unknown] escitalopram oxalate 10 mg tablet (Lexapro) 10 mg PO DAILY #90 tabs 03/09/22 [Rx Last Taken Unknown] nystatin 100,000 unit/gram topical powder (Nyamyc) 1 applic topical BID PRN skininfection #30 grams 03/09/22 [Rx Last Taken Unknown] fluconazole 150 mg tablet (Diflucan) 150 mg PO DAILY 2 days #2 tabs 03/28/22 [Rx Last Taken Unknown] atorvastatin 80 mg tablet 80 mg PO QHS #90 tabs 05/18/22 [Rx Last Taken Unknown] divalproex 125 mg capsule,delayed release sprinkle 125 mg PO BID bipolar #180 caps 05/18/22 [Rx Last Taken Unknown] gabapentin 600 mg tablet 900 mg PO BID neuropathy #180 tabs 05/18/22 [Rx Last Taken Unknown] levothyroxine 112 mcg tablet 112 mcg PO MOTUWETHFR thyroid #90 tabs 05/18/22 [Rx Last Taken Unknown] semaglutide 1 mg/dose (4 mg/3 mL) subcutaneous pen injector (Ozempic) 1 mg (0.75mL) subcut QWEEK #3 mL 05/18/22 [Rx Last Taken Unknown] ticagrelor 90 mg tablet 90 mg PO BID #180 tabs 05/18/22 [Rx Last Taken Unknown] trazodone 50 mg tablet 50 mg PO QHS PRN sleep #90 tabs 05/18/22 [Rx Last Taken Unknown] metoclopramide HCl 10 mg tablet 10 mg PO Q12H PRN PRN nausea or headache #12 tabs 07/20/22 [Rx Last Taken Unknown] Allergy/AdvReac Type Severity Reaction Status Date / Time duloxetine [From Cymbalta] Allergy Itching Verified 07/20/22 12:53 tomato Allergy Itching Verified 07/20/22 12:53 adhesive tape [plastic tape] AdvReac Rash Verified 07/20/22 12:53 isosorbide AdvReac Intermediate Headache Uncoded 07/20/22 12:53 and chest pain Family History Sister COPD (chronic obstructive pulmonary disease) Mother COPD (chronic obstructive pulmonary disease) Hypertension Alzheimer's dementia without behavioral disturbance Alzheimer's dementia Father Diabetes Hypertension Myocardial infarction Surgical History History of laparoscopic appendectomy History of total abdominal hysterectomy Hx of cholecystectomy Hx of shoulder surgery Presence of stent in coronary artery (~09/06/21) Social History Smoking Status: Current every day smoker tobacco type: cigarettes alcohol intake: never substance use type: does not use caffeine: No what type of physical activity do you participate in: none ROS ROS ED ROS Narrative Nausea, vomiting, diarrhea with lower abdominal pain. Cough. Review of Systems ROS Unobtainable: Denies due to encephalopathy Constitutional Constitutional ED: Reports fever(s) and subjective Eyes Eyes: Denies blurry vision ENT ENT ED: Denies ear pain, rhinorrhea or sore throat Cardiovascular Cardiovascular: Denies chest pain Respiratory/Chest Respiratory/Chest: Reports cough Gastrointestinal Gastrointestinal: Reports abdominal pain, diarrhea, nausea and vomiting; Denies constipation or melena Genitourinary Genitourinary ED: Denies dysuria or hematuria Musculoskeletal Musculoskeletal: Denies arthralgias Integumentary Denies abscess Neurologic Neurologic: Denies headache(s) Psychiatric Psychiatric: Denies anxiety Endocrine Endocrinology: Denies cold intolerance Hematologic/Lymphatic Hematologic/Lymphatic: Reports none Allergic/Immunologic Allergic/Immunologic ED: Denies mouth swelling, tongue swelling or urticaria EXAM Physical Exam Narrative Exam Narrative: 61-year-old female no acute distress. Vital signs stable afebrile. Pulse ox 96% on room air no hypoxia. H EENT exam unremarkable. Neck nontender no lymphadenopathy. No JVD. Lungs clear to auscultation bilaterally. Heart regular rhythm rate about 65 no murmur. Chest wall nontender. Abdomen soft, nondistended normal bowel sounds no peritoneal signs. Suprapubic tenderness. No signs of obstruction. Right upper right lower quadrant unremarkable. Back nontender. Moving all 4 extremities. Nontender no edema. Neurologically awakeand alert with no focal motor deficits. Const Vital Signs: 08/04/22 16:52 08/04/22 16:59 08/04/22 19:08 Temperature 98.0 F 98.1 F Temperature Source Oral Temporal Pulse Rate 65 76 Respiratory Rate 18 18 Respiratory Effort Normal Non-Labored Respiratory Pattern Normal Blood Pressure 166/76 H 164/62 H Blood Pressure Mean 106 96 Pulse Ox 96 97 Oxygen Delivery Method Room Air Room Air Positive well nourished and well developed; Negative for obese, cachectic, contractures or unkempt General Appearance ED: well developed and NAD; Negative for unkempt, cachectic, contractures, cyanotic, diaphoretic or pallor Nutritional Appearance: Negative for cachectic or obese HEENT Reports moist mucous membranes; Denies dry mucous membranes Negative for trauma or tenderness Mouth ED: No dry mucous membranes Mouth: No dry mucous membranes Eyes EOMs intact bilaterally General Eye ED: Negative for pale conjunctiva or scleral icterus Neck no lymphadenopathy, supple and no JVD General: Negative for tenderness Lymph Lymphatic: Negative for other Chest Wall inspection of chest normal and palpation of chest normal Chest: Negative for other Resp normal respiratory effort and clear to auscultation bilaterally Effort and Inspection: Negative for retractions Auscultation: Negative for rales, rhonchi or wheezes Cardio regular rate, regular rhythm, S1 normal heart sound, S2 normal heart sound and no murmurs Rhythm: Negative for abnormal rhythm GI normal to inspection, nondistended, normoactive bowel sounds, non-distended and no masses; Negative for non-tender GI Narrative: Suprapubic tenderness. No peritoneal signs. No right upper or right lower quadrant tenderness no pulsatile mass. Inspection: Negative for abdominal distention Auscultation: normoactive bowel sounds Palpation: soft and tender Bladder / Kidney Exam: No other Back/Spine General Back: Negative for CVA tenderness Cervical Spine: Negative for cervical spine tenderness Thoracic Spine / Upper Back: Negative for thoracic spinal tenderness Lumbar Spine / Lower Back: Negative for lumbar spinal tenderness Extremity General Extremety ED: Negative for edema or tenderness General Extremity: Negative for edema Neuro oriented x3 Sensorium / Orientation: alert; Negative for orientation impaired, lethargic or stuporous Motor Exam: strength 5/5 throughout Psych mental status grossly normal Appearance: Negative for unkempt Attitude: No agitated Mood & Affect: Negative for depressed, anxious or tearful Skin no rashes or lesions noted and no wounds General Skin Exam: Negative for jaundice or pallor Lesions: No lesion noted Rashes: No rashes noted Trauma: Negative for abrasion Wounds: Negative for wounds noted MDM MDM MDM Narrative Medical decision making narrative: 67-year-old female with nausea, vomiting and diarrhea may all be secondary to viral gastroenteritis. She is having abdominal pain which could also be secondary to nausea, vomiting and diarrhea with her cough we will obtain a CAT scan to rule out intra-abdominal etiology such as diverticulitis. She is havingno urinary symptoms. She will be treated with Zofran for nausea. She does not need any pain medication. Chest x-ray to be obtained due to the cough. Repeat exam at 6:50 PM patient is doing well. She does have some abdominal painand distention which I did not appreciate as much initially but distention. Shewill be given morphine. I am awaiting her CAT scan results. I have already reviewed it myself. I suspect the patient will need to be admitted for dehydration, acute kidney injury and possible small bowel obstruction or ileus. Patient will be admitted to the hospitalist. I will discuss the patient's case with them. Lab Data Lab results narrative: CBC shows elevated white count 14.3. Normal H&H 12.1 and 37. Platelets are 555. Electrolytes show sodium 131. Potassium of 5.3. Gap at 9 with elevated BUN of 36 and elevated creatinine 1.75. Glucose 255. Lipase is elevated at 944. Negative flu swab. Negative COVID swab. Chest x-ray is negative. Labs: Laboratory Results - last 24 hr 08/04/22 08/04/22 17:35 17:35 WBC 14.3 H RBC 4.04 L Hgb 12.1 Hct 37.4 MCV 92.6 MCH 30.0 MCHC 32.4 RDW Std Deviation 52.5 H RDW Coeff of Yaw 15.5 H Plt Count 555 H MPV 9.3 Immature Gran % (Auto) 1.300 H Neut % (Auto) 82.0 H Lymph % (Auto) 10.5 L [place] % (Auto) 5.1 Eos % (Auto) 0.5 Baso % (Auto) 0.6 Absolute Neuts (auto) 11.8 H Absolute Lymphs (auto) 1.51 Nucleated RBC % 0 Sodium 131 L Potassium 5.3 H Chloride 99 Carbon Dioxide 23.0 Anion Gap 9 BUN 36 H Creatinine 1.75 H Estim Creat Clear Calc 31.55 Est GFR (MDRD) Af Amer 37 L Est GFR (MDRD) Non-Af 31 L BUN/Creatinine Ratio 20.6 H Glucose 255 H Calcium 8.9 Total Bilirubin 0.60 AST 10 L ALT 18 Alkaline Phosphatase 103 Total Protein 8.1 Albumin 3.7 Globulin 4.4 H Albumin/Globulin Ratio 0.8 L Lipase 944 H Radiography Chest X-Ray - ED: 1 View, Read by ED Physician, Read by Radiologist, Heart, Lungs, Mediastinum, Bony Structures, No Acute Disease and Chronic Changes Diagnostic Testing: Clinical Impression(s) from Imaging Studies Abdomen/Pelvis CT 08/04/22 17:20 IMPRESSION: (NOT LISTED IN ORDER OF SIGNIFICANCE) There is a possible ileus of the small bowel. There is no transition point noted. There is gradual normal tapering of the small bowel to a normal diameter at the level of the terminal ileum. Surveillance may be warranted. Other findings as above. Electronically Signed: Nabeel Andersen MD at 19:18 EDT , Chest X-Ray 08/04/22 18:25 IMPRESSION: No radiographic evidence of acute cardiopulmonary disease. Electronically Signed: Nabeel Andersen MD at 18:46 EDT , Chest x-ray, portable, single view, interpreted both by myself and radiology shows no acute abnormality. Normal cardiac silhouette. No infiltrate. CAT scan of the abdomen is read by the radiologist reviewed by me and has been read as an ileus. No transition point. Discharge Plan Triage Chief Complaint: General Illness ED Provider: Sanju Hernandez Dx/Rx/DC Orders Clinical Impression: Nausea vomiting and diarrhea, Ileus, Acute dehydration, Acute kidney injury, History of diabetes mellitus, History of chronic atrial fibrillation, Chronic anticoagulation Prescriptions: No Action nitroglycerin [Nitrostat] 0.4 mg tablet, sublingual 0.4 mg sublingual Q5-15M PRN (Reason: chest pain) Qty: 25 3RF Rx Instructions: do not exceed 3 doses per episode sucralfate [Carafate] 1 gram tablet 1 g PO BID losartan 50 mg tablet 50 mg PO DAILY Qty: 1 0RF (DME) FreeStyle Marilyn 14 Day Sensor Kit See Rx Instructions .ROUTE .MEDSUPPLY Qty: 2 6RF Rx Instructions: As directed (DME) pen needle, diabetic [BD Ultra-Fine Sophia Pen Needle] 32 gauge x /32 needle See Rx Instructions .Route Qty: 100 5RF Rx Instructions: TID insulin glargine [Lantus Solostar U-100 Insulin] 100 unit/mL (3 mL) insulin pen 30 unit subcut DAILY Qty: 27 3RF colestipol 1 gram Tablet 1 g PO DAILY fluconazole [Diflucan] 150 mg tablet 150 mg PO DAILY 2 Days Qty: 2 0RF Rx Instructions: administer on day 1 of therapy metoclopramide HCl [metoclopramide HCl] 10 mg tablet 10 mg PO Q12H PRN PRN (Reason: nausea or headache) Qty: 12 0RF (DME) blood-glucose meter [OneTouch Verio Flex Start] Kit See Rx Instructions .ROUTE .MEDSUPPLY Qty: 1 0RF Rx Instructions: Twice daily and as needed (DME) OneTouch Verio test strips Strip See Rx Instructions .ROUTE .MEDSUPPLY Qty: 300 3RF Rx Instructions: Check 3 times a day and as needed (DME) lancets [OneTouch UltraSoft Lancets] Misc See Rx Instructions .ROUTE .MEDSUPPLY Qty: 300 3RF Rx Instructions: Check 3 times a day and as needed allopurinol 100 mg tablet 100 mg PO QHS Qty: 90 3RF Eliquis 5 mg tablet 5 mg PO BID Qty: 180 3RF Hold Instructions: [facility]; hold 02/12 carvedilol 6.25 mg tablet 6.25 mg PO BID Qty: 180 4RF Rx Instructions: must administer with a meal/food pantoprazole 40 mg tablet,delayed release (DR/EC) 40 mg PO DAILY Qty: 90 3RF (DME) pen needle, diabetic [Lite Touch Insulin Pen [place]] 31 gauge x 5/16 needle See Rx Instructions .ROUTE .MEDSUPPLY Qty: 100 4RF Rx Instructions: As directed albuterol sulfate 90 mcg/actuation HFA aerosol inhaler 2 puff INHALATION Q6H PRN (Reason: Wheezing) Qty: 8.5 6RF insulin lispro [Humalog KwikPen Insulin] 100 unit/mL insulin pen 5 unit subcut TID Qty: 15 5RF escitalopram oxalate [Lexapro] 10 mg tablet 10 mg PO DAILY Qty: 90 3RF nystatin [Nyamyc] 100,000 unit/gram powder 1 applic topical BID PRN (Reason: skin infection) Qty: 30 1RF Ozempic 1 mg/dose (4 mg/3 mL) pen injector 1 mg subcut QWEEK Qty: 3 5RF atorvastatin 80 mg tablet 80 mg PO QHS Qty: 90 3RF Rx Instructions: cholesterol divalproex 125 mg capsule, delayed rel sprinkle 125 mg PO BID Qty: 180 3RF gabapentin 600 mg tablet 900 mg PO BID Qty: 180 3RF levothyroxine 112 mcg tablet 112 mcg PO MOTUWETHFR Qty: 90 3RF ticagrelor 90 mg tablet 90 mg PO BID Qty: 180 3RF Hold Instructions: 04/15/2020: SOB trazodone 50 mg tablet 50 mg PO QHS PRN (Reason: sleep) Qty: 90 1RF Primary Care Provider: Pat Bennett Referrals: Pat Bennett MD [Primary Care Provider] - Disposition Disposition: [facility] What to do if you have Problems For any increased pain, shortness of breath, bleeding, nausea or vomiting, chestpain, or any unexpected problems, contact your Primary Care Provider. Call [facility] ([phone]) or report to the closest Emergency Room. Call 911 if necessary. 08/04/222308 <Electronically signed by Sanju Hernandez MD> Cosigner Signature (if applicable): CC: Dr. Pat Bennett MD ~ Signed [facility] Work Phone: [phone] History and physical note Author Dr. Mg [facility] August 04, 2022 8:35pm Note Date/Time August 04, 2022 7:2 8pm [facility] Medical Records Department [address] [place] [id number] H&P Exam - Hospitalist 08/04/221927 MR#: [id number] Acct: [id number] Name: LETI DELA CRUZ Rep #:[id number] 67 From: Daljit Mg MD PCP: Dr. Pat Bennett MD Status:ADM [place] [facility] [id number] HPI - General General Date of Admission: 08/04/22 Date of Service: 08/04/22 Chief Complaint: Abdominal pain HPI Narrative LETI DELA CRUZ, is a 67 F with a significant history of CAD status post 5 stents with last stent placed on 09/06/21; hypertension; diabetes mellitus; A- fibon Eliquis; CKD; chronic pancreatic insufficiency and cholecystectomy who presents to the emergency department with supra umbilical pain that started a night before presentation. She described the pain as sharp. The pain radiates across her entire abdomen. The pain increased with coughing. The pain improvedwith morphine that was given at the emergency department. Associated with symptom is nausea; vomiting and diarrhea. He reports that while she was vomiting she was also having loose stools at the same time. She reports bloating of her abdomen. She reports chills, and subjective fever. Home temperature was 99 Fahrenheit. She reports recent rhinorrhea. She reports that her grand children that she helps take care of has been having a viral illness. [facility] Medical History Acute kidney injury superimposed on chronic kidney disease Atherosclerotic heart disease of [place] coronary artery without angina pectoris Atrial fibrillation Bipolar disorder Chest congestion Chronic pancreatic insufficiency Dehydration Depression Diabetes Essential hypertension Fibromyalgia affecting multiple sites Generalized OA Hip pain, bilateral Hypertension Hypomagnesemia Hypotension Near syncope Overweight (BMI 25.0-29.9) Polyneuropathy due to type 2 diabetes mellitus Pre-op evaluation Shoulder pain, bilateral Tachybradycardia syndrome 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 GFR 30-59 Home Medications blood-glucose meter (MedPage[employer] Verio Flex Start kit) #1 ea 11/11/20 [Rx Last Taken Unknown] blood sugar diagnostic (Genio Studio LtdTouch Verio test strips) #300 ea 11/12/20 [Rx Last Taken Unknown] lancets (Genio Studio LtdTouch UltraSoft Lancets) #300 ea 11/12/20 [Rx Last Taken Unknown] nitroglycerin 0.4 mg sublingual tablet (Nitrostat) 0.4 mg sublingual Q5-15M PRN chest pain #25 tabs 01/11/21 [Rx Last Taken Unknown] flash glucose sensor (FreeStyle Marilyn 14 Day Sensor kit) #2 ea 07/26/21 [Rx Last Taken Unknown] allopurinol 100 mg tablet 100 mg PO QHS gout #90 tabs 10/27/21 [Rx Last Taken 11/06/21] apixaban 5 mg tablet (Eliquis) 5 mg PO BID #180 tabs 10/27/21 [Rx Last Taken 11/06/21] carvedilol 6.25 mg tablet 6.25 mg PO BID #180 tabs 10/27/21 [Rx Last Taken 11/06/21] pantoprazole 40 mg tablet,delayed release 40 mg PO DAILY gerd #90 tabs 10/27/21 [Rx Last Taken 11/06/21] colestipol 1 gram tablet 1 g PO DAILY cholesterol 11/07/21 [History Last Taken 11/06/21] pen needle, diabetic 31 gauge x 5/16 (Lite Touch Insulin Pen [place]) #100 ea 11/10/21 [Rx Last Taken Unknown] albuterol sulfate 90 mcg/actuation aerosol inhaler 2 puff inhalation Q6H PRN Wheezing #8.5 grams 12/20/21 [Rx Last Taken Unknown] losartan 50 mg tablet 50 mg PO DAILY #1 TAB 01/14/22 [Rx Last Taken Unknown] sucralfate 1 gram tablet (Carafate) 1 g PO BID 01/14/22 [History Last Taken Unknown] pen needle, diabetic 32 gauge x 5/32 (BD Ultra-Fine Sophia Pen Needle) #100 ea 02/07/22 [Rx Last Taken Unknown] insulin glargine 100 unit/mL (3 mL) subcutaneous pen (Lantus Solostar U-100 Insulin) 30 unit (0.3 mL) subcut DAILY #27 mL 02/09/22 [Rx Last Taken Unknown] Humalog KwikPen Insulin 100 unit/mL subcutaneous (insulin lispro) 5 unit (0.05 mL) subcut TID #15 mL 02/21/22 [Rx Last Taken Unknown] escitalopram oxalate 10 mg tablet (Lexapro) 10 mg PO DAILY #90 tabs 03/09/22 [Rx Last Taken Unknown] nystatin 100,000 unit/gram topical powder (Nyamyc) 1 applic topical BID PRN skininfection #30 grams 03/09/22 [Rx Last Taken Unknown] fluconazole 150 mg tablet (Diflucan) 150 mg PO DAILY 2 days #2 tabs 03/28/22 [Rx Last Taken Unknown] atorvastatin 80 mg tablet 80 mg PO QHS #90 tabs 05/18/22 [Rx Last Taken Unknown] divalproex 125 mg capsule,delayed release sprinkle 125 mg PO BID bipolar #180 caps 05/18/22 [Rx Last Taken Unknown] gabapentin 600 mg tablet 900 mg PO BID neuropathy #180 tabs 05/18/22 [Rx Last Taken Unknown] levothyroxine 112 mcg tablet 112 mcg PO MOTUWETHFR thyroid #90 tabs 05/18/22 [Rx Last Taken Unknown] semaglutide 1 mg/dose (4 mg/3 mL) subcutaneous pen injector (Ozempic) 1 mg (0.75mL) subcut QWEEK #3 mL 05/18/22 [Rx Last Taken Unknown] ticagrelor 90 mg tablet 90 mg PO BID #180 tabs 05/18/22 [Rx Last Taken Unknown] trazodone 50 mg tablet 50 mg PO QHS PRN sleep #90 tabs 05/18/22 [Rx Last Taken Unknown] metoclopramide HCl 10 mg tablet 10 mg PO Q12H PRN PRN nausea or headache #12 tabs 07/20/22 [Rx Last Taken Unknown] Allergy/AdvReac Type Severity Reaction Status Date / Time duloxetine [From Cymbalta] Allergy Itching Verified 07/20/22 12:53 tomato Allergy Itching Verified 07/20/22 12:53 adhesive tape [plastic tape] AdvReac Rash Verified 07/20/22 12:53 isosorbide AdvReac Intermediate Headache Uncoded 07/20/22 12:53 and chest pain Family History Sister COPD (chronic obstructive pulmonary disease) Mother COPD (chronic obstructive pulmonary disease) Hypertension Alzheimer's dementia without behavioral disturbance Alzheimer's dementia Father Diabetes Hypertension Myocardial infarction Surgical History History of laparoscopic appendectomy History of total abdominal hysterectomy Hx of cholecystectomy Hx of shoulder surgery Presence of stent in coronary artery (~09/06/21) Social History Smoking Status: Current every day smoker tobacco type: cigarettes alcohol intake: never substance use type: does not use caffeine: No what type of physical activity do you participate in: none ROS ROS Narrative Pertinent positives and pertinent negatives as noted in HPI. All other systems were reviewed and are negative Vital Signs Vital Signs Vital Signs: 08/04/22 16:52 08/04/22 16:59 08/04/22 19:08 Temperature 98.0 F 98.1 F Temperature Source Oral Temporal Pulse Rate 65 76 Respiratory Rate 18 18 Respiratory Effort Normal Non-Labored Respiratory Pattern Normal Blood Pressure 166/76 H 164/62 H Blood Pressure Mean 106 96 Pulse Ox 96 97 Oxygen Delivery Method Room Air Room Air Weight Weight: 63.2 kg Body Mass Index (BMI) 28.1 Physical Exam Narrative Physical exam: General: Well-nourished, well-developed. Head: Normocephalic, atraumatic, no tenderness Eyes: Vision is grossly intact. EOMI ENT, no trauma, dry mucous membranes, no rhinorrhea Neck: Nontender, No thyromegaly. CVS: Regular rate and rhythm. S1-S2 present. No murmur, gallop or rub. Respiratory : clear to auscultation bilaterally, chest wall nontender, no wheezing Abdomen: Soft, nontender, distended, normal bowel sounds. : Deferred Back: Nontender, no CVA tenderness, no midline spinal tenderness, deformities, step-offs Extremities: Nontender full range of motion, no trauma Skin: Normal color, no trauma, abrasions Neuro: Alert, oriented, cranial nerves II through XII grossly intact. Psychiatry: Normal mood. Normal affect. Not depressed. Not anxious. Results Lab / Micro Data Result Diagrams: 08/04/22 17:35 08/04/22 17:35 Labs: Laboratory Results - last 24 hr 08/04/22 17:35: WBC 14.3 H, RBC 4.04 L, Hgb 12.1, Hct 37.4, MCV 92.6, MCH 30.0, MCHC 32.4, RDW Std Deviation 52.5 H, RDW Coeff of Yaw 15.5 H, Plt Count 555 H, MPV 9.3, Immature Gran % (Auto) 1.300 H, Neut % (Auto) 82.0 H, Lymph % (Auto) 10.5 L, [place] % (Auto) 5.1, Eos % (Auto) 0.5, Baso % (Auto) 0.6, Absolute Neuts (auto) 11.8 H, Absolute Lymphs (auto) 1.51, Nucleated RBC % 0 08/04/22 17:35: Sodium 131 L, Potassium 5.3 H, Chloride 99, Carbon Dioxide 23.0,Anion Gap 9, BUN 36 H, Creatinine 1.75 H, Estim Creat Clear Calc 31.55, Est GFR (MDRD) Af Amer 37 L, Est GFR (MDRD) Non-Af 31 L, BUN/Creatinine Ratio 20.6 H, Glucose 255 H, Calcium 8.9, Total Bilirubin 0.60, AST 10 L, ALT 18, Alkaline Phosphatase 103, Total Protein 8.1, Albumin 3.7, Globulin 4.4 H, Albumin/Globulin Ratio 0.8 L, Lipase 944 H Micro: Microbiology 08/04/22 17:35 Nasal Secretion SARS-CoV-2 & FLU Antigen (Rapid) - Final Radiology Impression Abdomen/Pelvis CT 08/04/22 17:20 IMPRESSION: (NOT LISTED IN ORDER OF SIGNIFICANCE) There is a possible ileus of the small bowel. There is no transition point noted. There is gradual normal tapering of the small bowel to a normal diameter at the level of the terminal ileum. Surveillance may be warranted. Other findings as above. Electronically Signed: Nabeel Andersen MD at 19:18 EDT , Chest X-Ray 08/04/22 18:25 IMPRESSION: No radiographic evidence of acute cardiopulmonary disease. Electronically Signed: Nabeel Andersen MD at 18:46 EDT , Assessment & Plan Assessment/Plan (1) Ileus: (2) Acute pancreatitis: QUALIFIERS: Acute pancreatitis complication: no infection or necrosis Pancreatitis type: unspecified pancreatitis type Qualified Code(s): K85.90 - Acute pancreatitis without necrosis or infection, unspecified (3) Acute dehydration: (4) Acute kidney injury: (5) History of chronic atrial fibrillation: PLAN: Plan Ileus Impression of abdomen/pelvis CT by radiology: There is a possible ileus of the small bowel. There is no transition point noted. There is gradual normal tapering of the small bowel to a normal diameter at the level of the terminal ileum. Surveillance may be warranted. Abdomen and pelvis CT was independently interpreted and I agree radiology interpretation. Morphine IV as needed and Zofran IV as needed ordered. We will keep NPO. IV fluids ordered. General surgery consult. Acute Pancreatitis Lipase level: 944. Highest lipase previously was 77 Calcium level is normal. Patient has a history of cholecystectomy. Lipid panelordered to check triglycerides Hematocrit:37.4 BUN: 36 Patient received IV fluid bolus per squad and at the ED Lactated Ringer's at 100 ml/hr Antiemetics and pain control as above. SALVATORE on CKD stage IIIa SALVATORE on chronic kidney disease stage IIIa CKD Likely from Diabetic nephropathy Baseline creatinine of 1.2 Creatinine on admission was 1.75 IV hydration as above. Avoid nephrotoxins. Trend BMP Diabetes mellitus Patient with hyperglycemia on presentation On home Ozempic, basal insulin and correction scale insulin. With patient being n.p.o. decrease dose of home basal insulin. Accu-Chek with correction scale insulin ordered. URI Flonase ordered. History of Afib Stable. With ileus we will hold off anticoagulation at this time. Admit to [facility] with telemetry. CAD status post stents Stable N.p.o.. Hold home antiplatelets. Hypertension Blood pressure is not within goal Home blood pressure medication held secondary to n.p.o. status. As needed hydralazine IV ordered. Trend blood pressure and adjust blood pressure medications. DVT Prophylaxis SCDs ordered Charges/Coding Visit Charges Inpatient E&M: 72474 Init Hosp L3 08/04/222034 <Electronically signed by Daljit Mg MD> Cosigner Signature (if applicable): CC: Dr. Daljit Mg MD; Dr. Pat Bennett MD~ Signed [facility] Work Phone: [phone]) 339-872706-01-2022 History of Present illness Narrative* Rashard is seen today in follow-up. She was at [place] [facility] late October with 5-day history of vomiting diarrhea. States she had the worst abdominal pain she felt in years. Last hospitalization was 3 years ago for small bowel obstruction. Patient's had multiple abdominal operation including total dose hysterectomy and open cholecystectomy. * She presents today in follow-up. She still having cyclic constipation diarrhea she felt better while taking Carafate. She is currently on Colestid 1 g twice daily which is helping with her bowel saltdiarrhea but has not resolved all of her She was given a short trial of Creon for presumed pancreatic insufficiency and it did not resolve her diarrhea. She is no longer taking that medication. * Her epigastric discomfort has improved since taking Carafate she wishes to continue a few weeks longer. She denies any rectal bleeding or melanic stools. * Last colonoscopy was in 2018. CT scan reviewed from [facility] revealed small bowel loops with fluid and air-filled segments without transition point and and normal colon without obvious diverticulitis. [facility] Work Phone: 1(861) 885-498804-22-2022 History of Present illness Narrative* Pepito Joy RN - 09/10/2021 1:14 PM EDT Patient presented in office today for nurse only, EKG ordered by Dr. Zuñiga. EKG completed and routed to ordering provider. Patient voiced no needs. documented in this [id number] Instructions* Patient Instructions* Pepito Joy RN - 09/10/2021 8:14 AM EDT You can reach Dr Coleman's nurses, Pepito Joy RN and Sara Jackson RN, at [phone]. If unable to reach us please leave a detailed voicemail message. We regularly check our messages when we are in clinic and will return your call in 24 hours. REFILLS: When in need for refills please call the above number. Please relay your name, date and phonenumber. We request that you include medication name, dose, pharmacy name and location of pharmacy in your message. Be sure to specify 30-day or 90-day supply requested. Please check with your pharmacy within 24-48 hours of request for your refill. You must follow up as directed to continue current refills. FOLLOW UP VISIT: Regarding your follow up office visit: The return date listed below is an approximate date of when your next office visit will be. We will call you a month before that date to schedule your office visit. If you have not heard from us by the date listed below please call the office at [phone] and ask to speak to the schedulers to make an appointment. *If you made an -appointment prior to leaving the office today disregard this message. To cancel or reschedule your office visit or testing please call [phone]. If you need to cancel it must be 24 hours prior to that appt. Thank you. ....If you were seen in the [place] office today. If any testing was ordered a hospital wellness coordinator from [facility] will call you to schedule your testing. If you do not hear from a hospital wellness coordinator after a couple of days please call the office at [phone] and ask to speak to a hospital wellness coordinator. documented in this [id number] Evaluation + Plan note* Assessment & Plan Note - Jessica Zuñiga MD - 08/23/2021 2:15 PM EDT Associated Problem(s): Angina pectoris (HCC) Responsive to nitroglycerin at this time. On appropriate medical therapy. No resting discomfort. I cautioned her regarding seeking emergency medicine help if she has worsening symptoms or rest pain. [id number] Miscellaneous Notes* Assessment & Plan Note - Jessica Zuñiga MD - 08/23/2021 2:15 PM EDTAssociated Problem(s): Angina pectoris (HCC) Responsive to nitroglycerin at this time. On appropriate medical therapy. No resting discomfort. I cautioned her regarding seeking emergency medicine help if she has worsening symptoms or rest pain. * Assessment & Plan Note - Jessica Zuñiga MD - 08/23/2021 2:09 PM EDT Associated Problem(s): CAD (coronary artery disease) Multivessel coronary disease status post stenting. Now with restenosis of the proximal part of the LAD stent. Significant calcification noted in the proximal vessels as well. She also has an ostial PDA stenosis that also involves the bifurcation. She has easily provokable angina but does not have resting discomfort. Most of the symptoms resolved with nitroglycerin. She is on Brilinta after the previous stenting and also is anticoagulated with Eliquis because of atrial fibrillation noted on event monitoring which I have confirmed as well. --We will obtain recently completed labs and EKGs from her previous encounters. --Plan to proceed with stent placement given that she is not an ideal candidate for CABG anatomically. --Patient understands the risks and benefits and has agreed to proceed documented in this [id number] Evaluation + Plan note* Assessment & Plan Note - Jessica Zuñiga MD - 08/23/2021 2:09 PM EDT Associated Problem(s): CAD (coronary artery disease) Multivessel coronary disease status post stenting. Now with restenosis of the proximal part of the LAD stent. Significant calcification noted in the proximal vessels as well. She also has an ostial PDA stenosis that also involves the bifurcation. She has easily provokable angina but does not have resting discomfort. Most of the symptoms resolved with nitroglycerin. She is on Brilinta after the previous stenting and also is anticoagulated with Eliquis because of atrial fibrillation noted on event monitoring which I have confirmed as well. --We will obtain recently completed labs and EKGs from her previous encounters. --Plan to proceed with stent placement given that she is not an ideal candidate for CABG anatomically. --Patient understands the risks and benefits and has agreed to proceed [id number] History of Present illness Narrative* Jessica Zuñiga MD - 08/23/2021 12:30 PM EDT Interventional Cardiology Clinic Consult Heart & Vascular [facility] 08/23/2021 Jessica Zuñiga MD [address] [place] [address] Patient: Leti Dela Cruz Date of : 1955 (66 y.o.) Referring Provider: No ref. provider found PCP: Physician No Assessment & Plan CAD (coronary artery disease) Multivessel coronary disease status post stenting. Now with restenosis of the proximal part of the LAD stent. Significant calcification noted in the proximal vessels as well. She also has an ostial PDA stenosis that also involves the bifurcation. She has easily provokable angina but does not have resting discomfort. Most of the symptoms resolved with nitroglycerin. She is on Brilinta after the previous stenting and also is anticoagulated with Eliquis because of atrial fibrillation noted on event monitoring which I have confirmed as well. --We will obtain recently completed labs and EKGs from her previous encounters. --Plan to proceed with stent placement given that she is not an ideal candidate for CABG anatomically. --Patient understands the risks and benefits and has agreed to proceed Angina pectoris (HCC) Responsive to nitroglycerin at this time. On appropriate medical therapy. No resting discomfort. I cautioned her regarding seeking emergency medicine help if she has worsening symptoms or rest pain. Follow-up: Return if symptoms worsen or fail to improve, for Recheck. Chief Complaint: No chief complaint on file. Subjective History of Present Illness: Leti Dela Cruz is a 66 y.o. female History of coronary artery disease diagnosed after she presented with chest discomfort and elevated troponins. She was noted to have an LAD lesion which was stented. Due to recurrent symptoms mostly of exertional dyspnea she underwent another cardiac catheterization on 02/16/2021 at [facility]. At that time she was noted to have restenosis of the proximal section of the LAD stent. Also noticed was a area in the distal right coronary arterybifurcation mostly affecting the ostium of the PDA. She was initially seen by cardiothoracic surgery and now referred for consideration of percutaneous intervention or medical management. Objective Tobacco Use Smoking Status Current Every Day Smoker Packs/day: 0.50 Types: Cigarettes Smokeless Tobacco Never Used Tobacco cessation discussed today Imaging: I independently reviewed the EKG and cardiac catheterization and agree with the interpretation(s) with the following comments. HOME Medications: Patient's Medications New Prescriptions No medications on file Previous Medications ALLOPURINOL (ZYLOPRIM) 100 MG TABLET Take 100 mg by mouth daily . AMLODIPINE (NORVASC) 2.5 MG TABLET Take 2.5 mg by mouth daily . APIXABAN (ELIQUIS) 5 MG TAB Take 5 mg by mouth 2 (two) times a day . ATORVASTATIN (LIPITOR) 80 MG TABLET Take 80 mg by mouth daily . CARVEDILOL (COREG) 6.25 MG TABLET Take 6.25 mg by mouth 2 (two) times a day . ESCITALOPRAM OXALATE (LEXAPRO) 10 MG TABLET Take 10 mg by mouth daily . GABAPENTIN (NEURONTIN) 600 MG TABLET Take 600 mg by mouth 3 (three) times a day * . INSULIN GLARGINE,HUM.REC.ANLOG (LANTUS SOLOSTAR U-100 INSULIN SUBQ) Inject 40 Units under the skin at bedtime . LEVOTHYROXINE (SYNTHROID, LEVOTHROID) 112 MCG TABLET Take 112 mcg by mouth once daily . PANTOPRAZOLE (PROTONIX) 40 MG TABLET Take 40 mg by mouth daily . SEMAGLUTIDE (OZEMPIC) 0.25 MG OR 0.5 MG(2 MG/1.5 ML) PEN Inject 0.25 mg under the skin every 7 days. TICAGRELOR (BRILINTA) 90 MG TAB TABLET Take 90 mg by mouth 2 (two) times a day . TRAZODONE (DESYREL) 150 MG TABLET Take 150 mg by mouth nightly . TRIAMTERENE-HYDROCHLOROTHIAZIDE (DYAZIDE) 37.5-25 MG PER CAPSULE Take 1 capsule by mouth daily . Modified Medications No medications on file Discontinued Medications No medications on file Vital Signs: BP 108/63 Pulse (!) 58 Ht 4' 11 Wt 56.7 kg (125 lb) BMI 25.25 kg/m Physical Exam Neck veins are nondistended. No carotid bruits heard. Heart tones are regular without murmurs or gallops. No lower extremity edema noted. No results found for: CHOL, LDLCALC, LDLDIRECT, TRIG, HDL documented in this [id number] Evaluation note* Diagnosis Onset Date Resolution Status Aortic stenosis acute Essential hypertension chron ic Hyperlipidemia chronic Paroxysmal atrial fibrillation chronic Presence of stent in coronary artery August, chronic CKD (chronic kidney disease) stage 3, GFR 30-59 ml/min chronic Essential hypertension chron ic Hypothyroidism chronic Type 2 diabetes mellitus chr onic CKD (chronic kidney disease) stage 3, GFR 30-59 ml/min chronic Type 2 diabetes mellitus chr onic CKD (chronic kidney disease) stage 3, GFR 30-59 ml/min chronic Essential hypertension chron ic Hyperlipidemia chronic 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 2 diabetes mellitus chr onic Aortic stenosis acute Chest pain acute Paroxysmal atrial fibrillation chronic Presence of stent in coronary artery August, chronic Sleep concern noneactive Smokes cigarettes noneactive Bipolar disorder noneactive Chronic cough noneactive Right shoulder pain noneacti ve Yeast infection noneactive [facility] Work Phone: Evaluation note* Diagnosis Coronary artery disease involving [place] coronary artery, unspecified whether angina present, unspecified whether [place] or transplanted heart- Primary Angina pectoris (HCC) Other and unspecified angina pectoris Pre-operative cardiovascular examination [facility]* Diagnosis Angina pectoris (HCC)- Primary Other and unspecified angina pectoris Coronary artery disease involving [place] coronary artery, unspecified whether angina present, unspecified whether [place] or transplanted heart [facility]* Diagnosis Coronary artery disease involving [place] coronary artery, unspecified whether angina present, unspecified whether [place] or transplanted heart- Primary Angina pectoris (HCC) Other and unspecified angina pectoris Coronary artery disease involving [place] coronary artery, unspecified whether angina present, unspecified whether [place] or transplanted heart Angina pectoris (HCC) Other and unspecified angina pectoris Coronary artery disease involving [place] coronary artery, unspecified whether angina present, unspecified whether [place] or transplanted heart Angina pectoris (HCC) Other and unspecified angina pectoris [facility]* Diagnosis Coronary artery disease involving [place] coronary artery, unspecified whether angina present, unspecified whether [place] or transplanted heart Angina pectoris (HCC) Other and unspecified angina pectoris CAD (coronary artery disease) Coronary atherosclerosis of unspecified type of vessel, [place] or graft Coronary artery disease involving [place] coronary artery, unspecified whether angina present, unspecified whether [place] or transplanted heart Angina pectoris (HCC) Other and unspecified angina pectoris Pre-operative cardiovascular examination Coronary artery disease involving [place] coronary artery, unspecified whether angina present, unspecified whether [place] or transplanted heart Angina pectoris (HCC) Other and unspecified angina pectoris [facility]* Diagnosis Onset Date Resolution Status Fibromyalgia affecting multiple sites acute 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 Bipolar disorder chronic CKD (chronic kidney disease) stage 3, GFR 30-59 ml/min chronic Hyperlipidemia chronic Hypertension chronic Hypothyroidism chronic Paroxysmal atrial fibrillation chronic Presence of stent in coronary artery August, chronic Type 2 diabetes mellitus chr onic CKD (chronic kidney disease) stage 3, GFR 30-59 ml/min chronic Hyperlipidemia chronic Hypothyroidism chronic 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 GFR 30-59 chronic Dizziness acute CASTRO (dyspnea on exertion) ac [place] Fatigue acute Palpitations acute Atherosclerotic heart diseas e of [place] coronary artery without angina pectoris chronic Hyperlipidemia chronic Hypertension chronic Paroxysmal atrial fibrillation chronic Presence of stent in coronary artery August, chronic [facility] Work Phone: Evaluation note* Diagnosis Onset Date Resolution Status Fibromyalgia affecting multiple sites acute 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 Bipolar disorder chronic CKD (chronic kidney disease) stage 3, GFR 30-59 ml/min chronic Hyperlipidemia chronic Hypertension chronic Hypothyroidism chronic Paroxysmal atrial fibrillation chronic Presence of stent in coronary artery August, chronic Type 2 diabetes mellitus chr onic CKD (chronic kidney disease) stage 3, GFR 30-59 ml/min chronic Hyperlipidemia chronic Hypothyroidism chronic 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 GFR 30-59 chronic Dizziness acute CASTRO (dyspnea on exertion) ac [place] Fatigue acute Palpitations acute Atherosclerotic heart diseas e of [place] coronary artery without angina pectoris chronic Hyperlipidemia chronic Hypertension chronic Paroxysmal atrial fibrillation chronic Presence of stent in coronary artery August, chronic Leukocytosis acute Small bowel obstruction [facility] Work Phone: Evaluation note* Diagnosis Onset Date Resolution Status Fibromyalgia affecting multiple sites acute 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 Bipolar disorder chronic CKD (chronic kidney disease) stage 3, GFR 30-59 ml/min chronic Hyperlipidemia chronic Hypertension chronic Hypothyroidism chronic Paroxysmal atrial fibrillation chronic Presence of stent in coronary artery August, chronic Type 2 diabetes mellitus chr onic CKD (chronic kidney disease) stage 3, GFR 30-59 ml/min chronic Hyperlipidemia chronic Hypothyroidism chronic 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 GFR 30-59 chronic Dizziness acute CASTRO (dyspnea on exertion) [place] Fatigue acute Palpitations acute Atherosclerotic heart diseas e of [place] coronary artery without angina pectoris chronic Hyperlipidemia chronic Hypertension chronic Paroxysmal atrial fibrillation chronic Presence of stent in coronary artery August, chronic Gastroenteritis acute [facility]ukocytosis [facility]* Diagnosis Onset Date Resolution Status Fibromyalgia affecting multiple sites acute 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 Bipolar disorder chronic CKD (chronic kidney disease) stage 3, GFR 30-59 ml/min chronic Hyperlipidemia chronic Hypertension chronic Hypothyroidism chronic Paroxysmal atrial fibrillation chronic Presence of stent in coronary artery August, chronic Type 2 diabetes mellitus chr onic CKD (chronic kidney disease) stage 3, GFR 30-59 ml/min chronic Hyperlipidemia chronic Hypothyroidism chronic 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 GFR 30-59 chronic Dizziness acute CASTRO (dyspnea on exertion) [place] Fatigue acute Palpitations acute Atherosclerotic heart diseas e of [place] coronary artery without angina pectoris chronic Hyperlipidemia chronic Hypertension chronic Paroxysmal atrial fibrillation chronic Presence of stent in coronary artery August, chronic Gastroenteritis resolved Leukocytosis resolved Small bowel obstruction reso lved Acute kidney injury noneacti ve Abdominal pain noneactive [facility] Work Phone: Evaluation note* Diagnosis Onset Date Resolution Status Dizziness acute CASTRO (dyspnea on exertion) [place] Fatigue acute Palpitations acute Atherosclerotic heart diseas e of [place] coronary artery without angina pectoris chronic Hyperlipidemia chronic Hypertension chronic Paroxysmal atrial fibrillation chronic Presence of stent in coronary artery August, chronic Gastroenteritis resolved Leukocytosis resolved Small bowel obstruction reso lved Acute kidney injury noneacti ve Abdominal pain noneactive Upper respiratory infection noneactive [facility] Work Phone: Evaluation note* Diagnosis Onset Date Resolution Status Dizziness acute CASTRO (dyspnea on exertion) [place] Fatigue acute Palpitations acute Atherosclerotic heart diseas e of [place] coronary artery without angina pectoris chronic Hyperlipidemia chronic Paroxysmal atrial fibrillation chronic Presence of stent in coronary artery August, chronic Gastroenteritis resolved Leukocytosis resolved Small bowel obstruction reso lved Acute kidney injury noneacti ve Abdominal pain noneactive Upper respiratory infection noneactive Aortic stenosis acute Essential hypertension acute Atherosclerotic heart diseas e of [place] coronary artery without angina pectoris chronic Hyperlipidemia chronic Paroxysmal atrial fibrillation chronic Presence of stent in coronary artery August, chronic [facility] Work Phone: Evaluation note* Diagnosis Onset Date Resolution Status Gastroenteritis resolved Leukocytosis resolved Small bowel obstruction reso lved Acute kidney injury noneacti ve Abdominal pain noneactive Upper respiratory infection noneactive Aortic stenosis acute Essential hypertension acute Atherosclerotic heart diseas e of [place] coronary artery without angina pectoris chronic Hyperlipidemia chronic Paroxysmal atrial fibrillation chronic Presence of stent in coronary artery August, chronic CKD (chronic kidney disease) stage 3, GFR 30-59 ml/min chronic Hypothyroidism chronic Type 2 diabetes mellitus [facility] Work Phone: Evaluation note* Diagnosis Onset Date Resolution Status Upper respiratory infection noneactive Aortic stenosis acute Essential hypertension acute Atherosclerotic heart diseas e of [place] coronary artery without angina pectoris chronic Hyperlipidemia chronic Paroxysmal atrial fibrillation chronic Presence of stent in coronary artery August, chronic CKD (chronic kidney disease) stage 3, GFR 30-59 ml/min chronic Hypothyroidism chronic Type 2 diabetes mellitus [facility] Work Phone: Evaluation note* Diagnosis Onset Date Resolution Status Aortic stenosis acute Essential hypertension acute Atherosclerotic heart diseas e of [place] coronary artery without angina pectoris chronic Hyperlipidemia chronic Paroxysmal atrial fibrillation chronic Presence of stent in coronary artery August, chronic CKD (chronic kidney disease) stage 3, GFR 30-59 ml/min chronic Hypothyroidism chronic Type 2 diabetes mellitus [facility] on Chest congestion acute Essential hypertension acute Otitis media acute Hypothyroidism chronic Type 2 diabetes mellitus chr onic Hearing loss associated with syndrome of both ears acute Impacted cerumen of right ear acute Otitis media acute Tinnitus of both ears acute [facility] Work Phone: Evaluation note* Diagnosis Onset Date Resolution Status Hearing loss associated with syndrome of both ears acute Impacted cerumen of right ear acute Otitis media acute Tinnitus of both ears acute Acute dehydration acute Acute kidney injury acute Acute pancreatitis acute Chronic anticoagulation acut e History of chronic atrial fibrillation acute History of diabetes mellitus acute Ileus acute Nausea vomiting and diarrhea acute [facility] Work Phone: Evaluation note* Diagnosis Onset Date Resolution Status Hearing loss associated with syndrome of both ears acute Impacted cerumen of right ear acute Otitis media acute Tinnitus of both ears acute Acute dehydration acute Acute kidney injury acute Acute pancreatitis acute Anemia acute Chronic anticoagulation acut e Diarrhea acute History of chronic atrial fibrillation acute History of diabetes mellitus acute Hypocalcemia acute Hypokalemia acute Hypomagnesemia acute Ileus acute Nausea vomiting and diarrhea acute Sialoadenitis of submandibular gland acute Abdominal pain chronic [facility] Work Phone: Evaluation note* Diagnosis Onset Date Resolution Status Abdominal pain acute Acute dehydration acute Acute kidney injury acute Acute pancreatitis acute Anemia acute Chronic anticoagulation acut e Diarrhea acute History of chronic atrial fibrillation acute History of diabetes mellitus acute Nausea vomiting and diarrhea acute Hypocalcemia resolved Hypokalemia resolved Hypomagnesemia resolved Ileus resolved Sialoadenitis of submandibular gland resolved Abdominal pain acute Acute kidney injury acute Anemia acute Type 2 diabetes mellitus [facility] Work Phone: Evaluation note* Diagnosis Onset Date Resolution Status Abdominal pain acute Acute dehydration acute Acute kidney injury acute Acute pancreatitis acute Anemia acute Chronic anticoagulation acut e Diarrhea acute History of chronic atrial fibrillation acute History of diabetes mellitus acute Nausea vomiting and diarrhea acute Hypocalcemia resolved Hypokalemia resolved Hypomagnesemia resolved Ileus resolved Sialoadenitis of submandibular gland resolved Abdominal pain acute Acute kidney injury acute Anemia acute Type 2 diabetes mellitus [facility] Diabetes acute 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 Hyperlipidemia chronic Hypothyroidism chronic 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 GFR 30-59 chronic Acute bronchitis acute Mass of soft tissue of chest acute [facility] Work Phone: Evaluation note* Diagnosis Onset Date Resolution Status Diabetes acute 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 Hyperlipidemia chronic Hypothyroidism chronic 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 GFR 30-59 chronic Acute bronchitis acute Mass of soft tissue of chest acute [facility] Work Phone: Evaluation note* Diagnosis Onset Date Resolution Status Anemia acute 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 Atherosclerotic heart diseas e of [place] coronary artery without angina pectoris chronic Essential hypertension chron ic Hypothyroidism chronic Paroxysmal atrial fibrillation chronic 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 GFR 30-59 chronic Immunization due noneactive Smokes cigarettes noneactive Establishing care with new doctor, encounter for noneactive Bipolar disorder noneactive Chronic cough noneactive Anemia acute 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 Atherosclerotic heart diseas e of [place] coronary artery without angina pectoris chronic Essential hypertension chron ic Hypothyroidism chronic Paroxysmal atrial fibrillation chronic 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 GFR 30-59 chronic Chronic left hip pain noneac tive Chronic pain of left knee no neactive Smokes cigarettes noneactive Bipolar disorder noneactive Chronic cough noneactive Breast lump noneactive Aortic stenosis acute Essential hypertension chron ic Hyperlipidemia chronic Paroxysmal atrial fibrillation chronic Presence of stent in coronary artery August, chronic CKD (chronic kidney disease) stage 3, GFR 30-59 ml/min chronic Essential hypertension chron ic Hypothyroidism chronic Type 2 diabetes mellitus [facility] Work Phone: Evaluation note* Diagnosis Onset Date Resolution Status CKD (chronic kidney disease) stage 3, GFR 30-59 ml/min chronic Type 2 diabetes mellitus chr onic CKD (chronic kidney disease) stage 3, GFR 30-59 ml/min chronic Essential hypertension chron ic Hyperlipidemia chronic 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 2 diabetes mellitus chr onic Aortic stenosis acute Chest pain acute Paroxysmal atrial fibrillation chronic Presence of stent in coronary artery August, chronic Sleep concern noneactive Smokes cigarettes noneactive Bipolar disorder noneactive Chronic cough noneactive Right shoulder pain noneacti ve Yeast infection noneactive Aortic stenosis acute Chest pain acute Paroxysmal atrial fibrillation chronic Presence of stent in coronary artery August, chronic [facility] Work Phone: Evaluation note* Diagnosis Onset Date Resolution Status CKD (chronic kidney disease) stage 3, GFR 30-59 ml/min chronic Type 2 diabetes mellitus chr onic CKD (chronic kidney disease) stage 3, GFR 30-59 ml/min chronic Essential hypertension chron ic Hyperlipidemia chronic 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 2 diabetes mellitus chr onic Aortic stenosis acute Chest pain acute Paroxysmal atrial fibrillation chronic Presence of stent in coronary artery August, chronic Sleep concern noneactive Smokes cigarettes noneactive Bipolar disorder noneactive Chronic cough noneactive Right shoulder pain noneacti ve Yeast infection noneactive Aortic stenosis acute Chest pain acute Paroxysmal atrial fibrillation chronic Presence of stent in coronary artery August, chronic Dizziness acute Atherosclerotic heart diseas e of [place] coronary artery without angina pectoris chronic Essential hypertension chron ic Hypothyroidism chronic Paroxysmal atrial fibrillation chronic 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 GFR 30-59 chronic Sleep concern noneactive Vaginal itching noneactive Bipolar disorder noneactive Dysuria noneactive Right shoulder pain noneacti ve Quit smoking noneactive [facility] Work Phone: Evaluation note* Diagnosis Onset Date Resolution Status CKD (chronic kidney disease) stage 3, GFR 30-59 ml/min chronic Essential hypertension chron ic Hyperlipidemia chronic 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 2 diabetes mellitus chr onic Aortic stenosis acute Chest pain acute Paroxysmal atrial fibrillation chronic Presence of stent in coronary artery August, chronic Sleep concern noneactive Smokes cigarettes noneactive Bipolar disorder noneactive Chronic cough noneactive Right shoulder pain noneacti ve Yeast infection noneactive Aortic stenosis acute Chest pain acute Paroxysmal atrial fibrillation chronic Presence of stent in coronary artery August, chronic Dizziness acute Atherosclerotic heart diseas e of [place] coronary artery without angina pectoris chronic Essential hypertension chron ic Hypothyroidism chronic Paroxysmal atrial fibrillation chronic 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 GFR 30-59 chronic Sleep concern noneactive Vaginal itching noneactive Bipolar disorder noneactive Dysuria noneactive Right shoulder pain noneacti ve Quit smoking noneactive [facility] Work Phone: Evaluation note* Diagnosis Onset Date Resolution Status CKD (chronic kidney disease) stage 3, GFR 30-59 ml/min chronic Essential hypertension chron ic Hyperlipidemia chronic 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 2 diabetes mellitus chr onic Aortic stenosis acute Chest pain acute Paroxysmal atrial fibrillation chronic Presence of stent in coronary artery August, chronic Sleep concern noneactive Smokes cigarettes noneactive Bipolar disorder noneactive Chronic cough noneactive Right shoulder pain noneacti ve Yeast infection noneactive Aortic stenosis acute Chest pain acute Paroxysmal atrial fibrillation chronic Presence of stent in coronary artery August, chronic Dizziness acute Atherosclerotic heart diseas e of [place] coronary artery without angina pectoris chronic Essential hypertension chron ic Hypothyroidism chronic Paroxysmal atrial fibrillation chronic 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 Mg [facility] August 04, 2022 8:35pm Note Date/Time August 04, 2022 7:2 8pm [facility] Medical Records Department [address] [place] [address] H&P Exam - Hospitalist 08/04/221927 MR#: [id number] Acct: [id number] Name: LETI DELA CRUZ Rep #:[id number] : [id number] 67 From: Daljit Mg MD PCP: Dr. Pat Bennett MD Status:ADM [place] [facility] [id number] HPI - General General Date of Admission: 08/04/22 Date of Service: 08/04/22 Chief Complaint: Abdominal pain HPI Narrative LETI DELA CRUZ, is a 67 F with a significant history of CAD status post 5 stents with last stent placed on 09/06/21; hypertension; diabetes mellitus; A- fibon Eliquis; CKD; chronic pancreatic insufficiency and cholecystectomy who presents to the emergency department with supra umbilical pain that started a night before presentation. She described the pain as sharp. The pain radiates across her entire abdomen. The pain increased with coughing. The pain improvedwith morphine that was given at the emergency department. Associated with symptom is nausea; vomiting and diarrhea. He reports that while she was vomiting she was also having loose stools at the same time. She reports bloating of her abdomen. She reports chills, and subjective fever. Home temperature was 99 Fahrenheit. She reports recent rhinorrhea. She reports that her grand children that she helps take care of has been having a viral illness. [facility] Medical History Acute kidney injury superimposed on chronic kidney disease Atherosclerotic heart disease of [place] coronary artery without angina pectoris Atrial fibrillation Bipolar disorder Chest congestion Chronic pancreatic insufficiency Dehydration Depression Diabetes Essential hypertension Fibromyalgia affecting multiple sites Generalized OA Hip pain, bilateral Hypertension Hypomagnesemia Hypotension Near syncope Overweight (BMI 25.0-29.9) Polyneuropathy due to type 2 diabetes mellitus Pre-op evaluation Shoulder pain, bilateral Tachybradycardia syndrome 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 GFR 30-59 Home Medications blood-glucose meter (Med[employer] Verio Flex Start kit) #1 ea 11/11/20 [Rx Last Taken Unknown] blood sugar diagnostic (Genio Studio LtdTouch Verio test strips) #300 ea 11/12/20 [Rx Last Taken Unknown] lancets ([employer]Touch UltraSoft Lancets) #300 ea 11/12/20 [Rx Last Taken Unknown] nitroglycerin 0.4 mg sublingual tablet (Nitrostat) 0.4 mg sublingual Q5-15M PRN chest pain #25 tabs 01/11/21 [Rx Last Taken Unknown] flash glucose sensor (FreeStyle Marilyn 14 Day Sensor kit) #2 ea 07/26/21 [Rx Last Taken Unknown] allopurinol 100 mg tablet 100 mg PO QHS gout #90 tabs 10/27/21 [Rx Last Taken 11/06/21] apixaban 5 mg tablet (Eliquis) 5 mg PO BID #180 tabs 10/27/21 [Rx Last Taken 11/06/21] carvedilol 6.25 mg tablet 6.25 mg PO BID #180 tabs 10/27/21 [Rx Last Taken 11/06/21] pantoprazole 40 mg tablet,delayed release 40 mg PO DAILY gerd #90 tabs 10/27/21 [Rx Last Taken 11/06/21] colestipol 1 gram tablet 1 g PO DAILY cholesterol 11/07/21 [History Last Taken 11/06/21] pen needle, diabetic 31 gauge x 5/16 (Lite Touch Insulin Pen [place]) #100 ea 11/10/21 [Rx Last Taken Unknown] albuterol sulfate 90 mcg/actuation aerosol inhaler 2 puff inhalation Q6H PRN Wheezing #8.5 grams 12/20/21 [Rx Last Taken Unknown] losartan 50 mg tablet 50 mg PO DAILY #1 TAB 01/14/22 [Rx Last Taken Unknown] sucralfate 1 gram tablet (Carafate) 1 g PO BID 01/14/22 [History Last Taken Unknown] pen needle, diabetic 32 gauge x 5/32 (BD Ultra-Fine Sophia Pen Needle) #100 ea 02/07/22 [Rx Last Taken Unknown] insulin glargine 100 unit/mL (3 mL) subcutaneous pen (Lantus Solostar U-100 Insulin) 30 unit (0.3 mL) subcut DAILY #27 mL 02/09/22 [Rx Last Taken Unknown] Humalog KwikPen Insulin 100 unit/mL subcutaneous (insulin lispro) 5 unit (0.05 mL) subcut TID #15 mL 02/21/22 [Rx Last Taken Unknown] escitalopram oxalate 10 mg tablet (Lexapro) 10 mg PO DAILY #90 tabs 03/09/22 [Rx Last Taken Unknown] nystatin 100,000 unit/gram topical powder (Nyamyc) 1 applic topical BID PRN skininfection #30 grams 03/09/22 [Rx Last Taken Unknown] fluconazole 150 mg tablet (Diflucan) 150 mg PO DAILY 2 days #2 tabs 03/28/22 [Rx Last Taken Unknown] atorvastatin 80 mg tablet 80 mg PO QHS #90 tabs 05/18/22 [Rx Last Taken Unknown] divalproex 125 mg capsule,delayed release sprinkle 125 mg PO BID bipolar #180 caps 05/18/22 [Rx Last Taken Unknown] gabapentin 600 mg tablet 900 mg PO BID neuropathy #180 tabs 05/18/22 [Rx Last Taken Unknown] levothyroxine 112 mcg tablet 112 mcg PO MOTUWETHFR thyroid #90 tabs 05/18/22 [Rx Last Taken Unknown] semaglutide 1 mg/dose (4 mg/3 mL) subcutaneous pen injector (Ozempic) 1 mg (0.75mL) subcut QWEEK #3 mL 05/18/22 [Rx Last Taken Unknown] ticagrelor 90 mg tablet 90 mg PO BID #180 tabs 05/18/22 [Rx Last Taken Unknown] trazodone 50 mg tablet 50 mg PO QHS PRN sleep #90 tabs 05/18/22 [Rx Last Taken Unknown] metoclopramide HCl 10 mg tablet 10 mg PO Q12H PRN PRN nausea or headache #12 tabs 07/20/22 [Rx Last Taken Unknown] Allergy/AdvReac Type Severity Reaction Status Date / Time duloxetine [From Cymbalta] Allergy Itching Verified 07/20/22 12:53 tomato Allergy Itching Verified 07/20/22 12:53 adhesive tape [plastic tape] AdvReac Rash Verified 07/20/22 12:53 isosorbide AdvReac Intermediate Headache Uncoded 07/20/22 12:53 and chest pain Family History Sister COPD (chronic obstructive pulmonary disease) Mother COPD (chronic obstructive pulmonary disease) Hypertension Alzheimer's dementia without behavioral disturbance Alzheimer's dementia Father Diabetes Hypertension Myocardial infarction Surgical History History of laparoscopic appendectomy History of total abdominal hysterectomy Hx of cholecystectomy Hx of shoulder surgery Presence of stent in coronary artery (~09/06/21) Social History Smoking Status: Current every day smoker tobacco type: cigarettes alcohol intake: never substance use type: does not use caffeine: No what type of physical activity do you participate in: none ROS ROS Narrative Pertinent positives and pertinent negatives as noted in HPI. All other systems were reviewed and are negative Vital Signs Vital Signs Vital Signs: 08/04/22 16:52 08/04/22 16:59 08/04/22 19:08 Temperature 98.0 F 98.1 F Temperature Source Oral Temporal Pulse Rate 65 76 Respiratory Rate 18 18 Respiratory Effort Normal Non-Labored Respiratory Pattern Normal Blood Pressure 166/76 H 164/62 H Blood Pressure Mean 106 96 Pulse Ox 96 97 Oxygen Delivery Method Room Air Room Air Weight Weight: 63.2 kg Body Mass Index (BMI) 28.1 Physical Exam Narrative Physical exam: General: Well-nourished, well-developed. Head: Normocephalic, atraumatic, no tenderness Eyes: Vision is grossly intact. EOMI ENT, no trauma, dry mucous membranes, no rhinorrhea Neck: Nontender, No thyromegaly. CVS: Regular rate and rhythm. S1-S2 present. No murmur, gallop or rub. Respiratory : clear to auscultation bilaterally, chest wall nontender, no wheezing Abdomen: Soft, nontender, distended, normal bowel sounds. : Deferred Back: Nontender, no CVA tenderness, no midline spinal tenderness, deformities, step-offs Extremities: Nontender full range of motion, no trauma Skin: Normal color, no trauma, abrasions Neuro: Alert, oriented, cranial nerves II through XII grossly intact. Psychiatry: Normal mood. Normal affect. Not depressed. Not anxious. Results Lab / Micro Data Result Diagrams: 08/04/22 17:35 08/04/22 17:35 Labs: Laboratory Results - last 24 hr 08/04/22 17:35: WBC 14.3 H, RBC 4.04 L, Hgb 12.1, Hct 37.4, MCV 92.6, MCH 30.0, MCHC 32.4, RDW Std Deviation 52.5 H, RDW Coeff of Yaw 15.5 H, Plt Count 555 H, MPV 9.3, Immature Gran % (Auto) 1.300 H, Neut % (Auto) 82.0 H, Lymph % (Auto) 10.5 L, [place] % (Auto) 5.1, Eos % (Auto) 0.5, Baso % (Auto) 0.6, Absolute Neuts (auto) 11.8 H, Absolute Lymphs (auto) 1.51, Nucleated RBC % 0 08/04/22 17:35: Sodium 131 L, Potassium 5.3 H, Chloride 99, Carbon Dioxide 23.0,Anion Gap 9, BUN 36 H, Creatinine 1.75 H, Estim Creat Clear Calc 31.55, Est GFR (MDRD) Af Amer 37 L, Est GFR (MDRD) Non-Af 31 L, BUN/Creatinine Ratio 20.6 H, Glucose 255 H, Calcium 8.9, Total Bilirubin 0.60, AST 10 L, ALT 18, Alkaline Phosphatase 103, Total Protein 8.1, Albumin 3.7, Globulin 4.4 H, Albumin/Globulin Ratio 0.8 L, Lipase 944 H Micro: Microbiology 08/04/22 17:35 Nasal Secretion SARS-CoV-2 & FLU Antigen (Rapid) - Final Radiology Impression Abdomen/Pelvis CT 08/04/22 17:20 IMPRESSION: (NOT LISTED IN ORDER OF SIGNIFICANCE) There is a possible ileus of the small bowel. There is no transition point noted. There is gradual normal tapering of the small bowel to a normal diameter at the level of the terminal ileum. Surveillance may be warranted. Other findings as above. Electronically Signed: Nabeel Andersen MD at 19:18 EDT , Chest X-Ray 08/04/22 18:25 IMPRESSION: No radiographic evidence of acute cardiopulmonary disease. Electronically Signed: Nabeel Andersen MD at 18:46 EDT , Assessment & Plan Assessment/Plan (1) Ileus: (2) Acute pancreatitis: QUALIFIERS: Acute pancreatitis complication: no infection or necrosis Pancreatitis type: unspecified pancreatitis type Qualified Code(s): K85.90 - Acute pancreatitis without necrosis or infection, unspecified (3) Acute dehydration: (4) Acute kidney injury: (5) History of chronic atrial fibrillation: PLAN: Plan Ileus Impression of abdomen/pelvis CT by radiology: There is a possible ileus of the small bowel. There is no transition point noted. There is gradual normal tapering of the small bowel to a normal diameter at the level of the terminal ileum. Surveillance may be warranted. Abdomen and pelvis CT was independently interpreted and I agree radiology interpretation. Morphine IV as needed and Zofran IV as needed ordered. We will keep NPO. IV fluids ordered. General surgery consult. Acute Pancreatitis Lipase level: 944. Highest lipase previously was 77 Calcium level is normal. Patient has a history of cholecystectomy. Lipid panelordered to check triglycerides Hematocrit:37.4 BUN: 36 Patient received IV fluid bolus per squad and at the ED Lactated Ringer's at 100 ml/hr Antiemetics and pain control as above. SALVATORE on CKD stage IIIa SALVATORE on chronic kidney disease stage IIIa CKD Likely from Diabetic nephropathy Baseline creatinine of 1.2 Creatinine on admission was 1.75 IV hydration as above. Avoid nephrotoxins. Trend BMP Diabetes mellitus Patient with hyperglycemia on presentation On home Ozempic, basal insulin and correction scale insulin. With patient being n.p.o. decrease dose of home basal insulin. Accu-Chek with correction scale insulin ordered. URI Flonase ordered. History of Afib Stable. With ileus we will hold off anticoagulation at this time. Admit to [facility] with telemetry. CAD status post stents Stable N.p.o.. Hold home antiplatelets. Hypertension Blood pressure is not within goal Home blood pressure medication held secondary to n.p.o. status. As needed hydralazine IV ordered. Trend blood pressure and adjust blood pressure medications. DVT Prophylaxis SCDs ordered Charges/Coding Visit Charges Inpatient E&M: 76906 Init Hosp L3 08/04/222034 <Electronically signed by Daljit Mg MD> Cosigner Signature (if applicable): CC: Dr. Daljit Mg MD; Dr. Pat Bennett MD~ Signed [facility] Work Phone: History of Present illness Js is seen today in follow-up. She is having more productive bowel movement since beginning Metamucil she states are very hard at times and very voluminous to the point where they are causing her some discomfort. She continues to have some intermittent constipation followed by diarrhea. She denies any rectal bleeding or nausea and melanic stools are now resolved. She continues have persistent l eft lower quadrant pain which seems to be unchanged by her current bowel regimen.[facility] Work Phone: [facility]: [facility] Work Phone: [facility] Work Phone: Hospital Discharge instructions Additional Instructions Please make sure you are taking your pantoprazole daily. Please call your vault attendant for early follow-upW[facility]. [facility] Work Phone: Summary Purpose Family History No Family History Records Found Mother Name Dates Details Family history of hypertensi on(V17.49, Z82.49) Status:Active Father Name Dates Details Family history of dementia(V 17.2, Z81.8) Status:Active Family history of diabetes m ellitus(V18.0, Z83.3) Status:Active Family history of hypertensi on(V17.49, Z82.49) Status:Active Family history of Parkinson disease, symptomatic(332.0, G20) Status:Active Mother Name Dates Details Family history of hypertensi on(V17.49, Z82.49) Status:Active Father Name Dates Details Family history of dementia(V 17.2, Z81.8) Status:Active Family history of diabetes m ellitus(V18.0, Z83.3) Status:Active Family history of hypertensi on(V17.49, Z82.49) Status:Active Family history of Parkinson disease, symptomatic(332.0, G20) Status:Active Mother Name Dates Details Family history of hypertensi on(V17.49, Z82.49) Status:Active Father Name Dates Details Family history of dementia(V 17.2, Z81.8) Status:Active Family history of diabetes m ellitus(V18.0, Z83.3) Status:Active Family history of hypertensi on(V17.49, Z82.49) Status:Active Family history of Parkinson disease, symptomatic(332.0, G20) Status:Active Mother Name Dates Details Family history of hypertensi on(V17.49, Z82.49) Status:Active Father Name Dates Details Family history of dementia(V 17.2, Z81.8) Status:Active Family history of diabetes m ellitus(V18.0, Z83.3) Status:Active Family history of hypertensi on(V17.49, Z82.49) Status:Active Family history of Parkinson disease, symptomatic(332.0, G20) Status:Active Unknown Family Member Name Dates Details Family history of dementia: Father(V17.2, Z81.8) Status:Active Family history of diabetes m ellitus: Father(V18.0, Z83.3) Status:Active Family history of hypertensi on: Mother, Father(V17.49, Z82.49) Status:Active Parkinson disease, symptomat ic: Father Status:Active Relationship Condition Age at Onset Recorded Date/T xiao sister Chronic obstructive pulmonary disease Unk nown mother Chronic obstructive pulmonary disease Unk nown Hypertension Unknown Alzheimer's dementia without behavioral disturbance Unknown Alzheimer's dementia Unknown father Diabetes mellitus Unknown Myocardial infarction Unknown Unknown Family Member Name Dates Details Family history of dementia: Father(V17.2, Z81.8) Status:Active Family history of diabetes m ellitus: Father(V18.0, Z83.3) Status:Active Family history of hypertensi on: Mother, Father(V17.49, Z82.49) Status:Active Parkinson disease, symptomat ic: Father Status:Active Unknown Family Member Name Dates Details Family history of dementia: Father(V17.2, Z81.8) Status:Active Family history of diabetes m ellitus: Father(V18.0, Z83.3) Status:Active Family history of hypertensi on: Mother, Father(V17.49, Z82.49) Status:Active Parkinson disease, symptomat ic: Father Status:Active Unknown Family Member Name Dates Details Family history of dementia: Father(V17.2, Z81.8) Status:Active Family history of diabetes m ellitus: Father(V18.0, Z83.3) Status:Active Family history of hypertensi on: Mother, Father(V17.49, Z82.49) Status:Active Parkinson disease, symptomat ic: Father Status:Active Unknown Family Member Name Dates Details Family history of dementia: Father(V17.2, Z81.8) Status:Active Family history of diabetes m ellitus: Father(V18.0, Z83.3) Status:Active Family history of hypertensi on: Mother, Father(V17.49, Z82.49) Status:Active Parkinson disease, symptomat ic: Father Status:Active Relationship Condition Age at Onset Recorded Date/T xiao sister Chronic obstructive pulmonary disease Unk nown mother Chronic obstructive pulmonary disease Unk nown Hypertension Unknown Alzheimer's dementia without behavioral disturbance Unknown father Diabetes mellitus Unknown Myocardial infarction Unknown Parkinson's disease Unknown Advance Directives No Advanced Directives Records FoundLatest Code Status on File Code Status Date Activated Date Inactivated Comments Full Code 10/15/2019 11:00 PM Latest Code Status on File Code Status Date Activated Date Inactivated Comments Full Code 10/15/2019 11:00 PM Documents on File Type Date Recorded 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 Advance Directives and Living Will Documents on File Type Date Recorded 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 Advance Directives and Living Will Advance Directive Response Recorded Date/ Time Advance Directives No January 9:27am Living Will No July 03 4:19pm Power of Glass Laminating Operator No July 03, 2021 4:19pm Advance Directive Response Recorded Date/ Time Advance Directives No January 9:27am Living Will No November 07, 2021 4:38pm Power of Glass Laminating Operator No November 07 4:38pm Advance Directive Response Recorded Date/ Time Name of Medical Power of Glass Laminating Operator Lisa Lawson November 07, 2021 9:38pm Advance Directives No January 9:27am Living Will Yes November 07, 2021 9:38pm Power of Glass Laminating Operator Yes November 07 9:38pm Advance Directive Response Recorded Date/ Time Name of Medical Power of Glass Laminating Operator Lisa Lawson November 07, 2021 9:38pm Advance Directives No January 9:27am Living Will No November 16, 2021 11:13am Power of Glass Laminating Operator No November 16 11:13am Advance Directive Response Recorded Date/ Time Advance Directives No January 8:27am Living Will No March 28 3:42pm Power of Glass Laminating Operator No March 28, 2022 3:42pm Advance Directive Response Recorded Date/ Time Advance Directives No January 9:27am Living Will No August 04, 2022 4:57pm Power of Glass Laminating Operator No August 04 4:57pm Advance Directive Response Recorded Date/ Time Advance Directives No January 9:27am Living Will No August 04, 2022 9:10pm Power of Glass Laminating Operator No August 04 9:10pm Advance Directive Response Recorded Date/ Time Advance Directives No January 9:27am Living Will No September 15, 2022 3:47pm Power of Glass Laminating Operator No September 15 3:47pm Advance Directive Response Recorded Date/ Time Advance Directives No January 8:27am Living Will No September 15, 2022 2:47pm Power of Glass Laminating Operator No September 15 2:47pm Advance Directive Response Recorded Date/ Time Advance Directives No January 9:27am Living Will No September 11, 2023 10:37am Power of Glass Laminating Operator No September 10 10:37am Advance Directive Response Recorded Date/ Time Living Will No January 28 024 2:06pm Power of Glass Laminating Operator No January 29, 2024 2:06pm Living Will No May 13 024 11:16pm Power of Glass Laminating Operator No May 13, 2024 11:16pm Living Will No June 16 9:40pm Power of Glass Laminating Operator No June 16, 2024 9:40pm Advance Directives No January 9:27am Advance Directive Response Recorded Date/ Time Living Will No January 28 024 2:06pm Do you have a Healthcare Power of Glass Laminating Operator? No January 29, 2024 2:06pm Living Will No May 13 024 11:16pm Do you have a Healthcare Power of Glass Laminating Operator? No May 13, 2024 11:16pm Living Will No June 16 9:40pm Do you have a Healthcare Power of Glass Laminating Operator? No June 16, 2024 9:40pm Advance Directives No January 9:27am Advance Directive Response Recorded Date/ Time Living Will No Diaz 23rd, 2 024 11:16pm Do you have a Healthcare Power of Glass Laminating Operator? No May 13, 2024 11:16pm Living Will No June 16 9:40pm Do you have a Healthcare Power of Glass Laminating Operator? No June 16, 2024 9:40pm Do you have a Healthcare Power of Glass Laminating Operator? No September 17, 2024 7:01pm Advance Directives No January 9:27am Reason for Referral Status Reason Specialty Diagnoses / Procedures Re ferred By Contact Referred To Contact Pending Review Diagnoses Cervicalgia Dorsalgia Paresthesia of both hands Bilateral carpal tunnel syndrome Bilateral foot pain Disorder of bone and cartilage Chronic pain of both shoulders Fibromyalgia Bilateral biceps tendonitis Tendonitis of both rotator cuffs Bilateral elbow joint pain Lateral epicondylitis of both elbows Bilateral medial epicondylitis of elbow joint Bilateral wrist pain Bilateral hand pain Osteoarthritis of both hands, unspecified osteoarthritis type Weakness of both hands Left hip pain Greater trochanteric bursitis of left hip Chronic pain of left knee Osteoarthritis of both feet, unspecified osteoarthritis type Fatigue, unspecified type 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 long-term current use of non-steroidal anti-inflammatories (NSAID) Hypertension, unspecified type Gastroesophageal reflux disease, esophagitis presence not specified Hypothyroidism, unspecified type Type II diabetes mellitus with neurological manifestations Lower abdominal pain Procedures EMG & NERVE CONDUCTION Timur Naranjo, Bassem Mix, DO [address] [place] [id number] Status Reason Specialty Diagnoses / Procedures Re ferred By Contact Referred To Contact Closed Ultrasound Diagnoses Acute renal failure, unspecified acute renal failure type Procedures US RENAL RETROPERITONEAL Vladimir Landon [address] [address] [facility] [address] [place] [phone] Status Reason Specialty Diagnoses / Procedures Referre d By Contact Referred To Contact Closed Ultrasound Diagnoses Acute renal failure, unspecified acute renal failure type Procedures US PELVIS LIMITED Vladimir Landon, [address] [place] [address] [facility] [address] [place] [phone] Status Reason Specialty Diagnoses / Procedures Referred By Contact Referred To Contact New Request Physical Therapy Diagnoses Chronic right shoulder pain Lele Murray, DO [address] [place] [id number] Status Reason Specialty Diagnoses / Procedures Referre d By Contact Referred To Contact Closed Ultrasound Diagnoses Intermittent claudication Pre-operative clearance Atherosclerosis of [place] coronary artery of [place] heart, angina presence unspecified Procedures US DOPPLER ARTERIAL LEGS BILATERAL Sherwin Cali II, MD [address] [place] [address] [facility] [address] [place] [phone] Status Reason Specialty Diagnoses / Procedures Re ferred By Contact Referred To Contact New Request Procedures INPATIENT ADMISSION NOTIFICATION Robles Kapadia MD [address] [place] [address] Status Reason Specialty Diagnoses / Procedures Referred By Contact Referred To Contact New Request Procedures ECG Rashard Gallegos MD [address] [place] [id number] Status Reason Specialty Diagnoses / Procedures Referred By Contact Referred To Contact New Request Physical Therapy Diagnoses Left hip pain Lele Murray, DO [address] [place] [id number] Status Reason Specialty Diagnoses / Procedures Re ferred By Contact Referred To Contact New Request Orthopaedics Diagnoses Gouty arthropathy DDD (degenerative disc disease), cervical Calcific tendonitis of right shoulder Bilateral calcaneal spurs IgG monoclonal gammopathy Anemia, unspecified type Personal history of kidney stones Patient non adherence Noncompliance 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 Vitamin D deficiency Type II diabetes mellitus with neurological manifestations Hypomagnesemia Ulnar neuropathy at elbow, left Fibromyalgia Carpal tunnel syndrome of right wrist Thoracic degenerative disc disease Scoliosis of thoracic spine, unspecified scoliosis type Primary osteoarthritis, right wrist Primary osteoarthritis of left knee Primary osteoarthritis of both hips Osteoarthritis of lumbar spine, unspecified spinal osteoarthritis complication status Osteoarthritis of both hands, unspecified osteoarthritis type Osteoarthritis of both feet, unspecified osteoarthritis type Osteoarthritis of both acromioclavicular joints Osteoarthritis of cervical spine, unspecified spinal osteoarthritis complication status Lumbar degenerative disc disease Impingement syndrome of both shoulders Bassem Ding Jr., DO [address] [place] [phone] Bravo Cote MD [address] [place] [id number] Status Reason Specialty Diagnoses / Procedures Re ferred By Contact Referred To Contact New Request Sports Ortho and Primary Care Sports Diagnoses Gouty arthropathy DDD (degenerative disc disease), cervical Calcific tendonitis of right shoulder Bilateral calcaneal spurs IgG monoclonal gammopathy Anemia, unspecified type Personal history of kidney stones Patient non adherence Noncompliance 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 Vitamin D deficiency Type II diabetes mellitus with neurological manifestations Hypomagnesemia Ulnar neuropathy at elbow, left Fibromyalgia Carpal tunnel syndrome of right wrist Thoracic degenerative disc disease Scoliosis of thoracic spine, unspecified scoliosis type Primary osteoarthritis, right wrist Primary osteoarthritis of left knee Primary osteoarthritis of both hips Osteoarthritis of lumbar spine, unspecified spinal osteoarthritis complication status Osteoarthritis of both hands, unspecified osteoarthritis type Osteoarthritis of both feet, unspecified osteoarthritis type Osteoarthritis of both acromioclavicular joints Osteoarthritis of cervical spine, unspecified spinal osteoarthritis complication status Lumbar degenerative disc disease Impingement syndrome of both shoulders Bassem Ding Jr., DO [address] [place] [phone] Lele Murray, DO [address] [place] [id number] Status Reason Specialty Diagnoses / Procedures Re ferred By Contact Referred To Contact New Request Multispecialty Diagnoses Gouty arthropathy DDD (degenerative disc disease), cervical Calcific tendonitis of right shoulder Bilateral calcaneal spurs IgG monoclonal gammopathy Anemia, unspecified type Personal history of kidney stones Patient non adherence Noncompliance 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 Vitamin D deficiency Type II diabetes mellitus with neurological manifestations Hypomagnesemia Ulnar neuropathy at elbow, left Fibromyalgia Carpal tunnel syndrome of right wrist Thoracic degenerative disc disease Scoliosis of thoracic spine, unspecified scoliosis type Primary osteoarthritis, right wrist Primary osteoarthritis of left knee Primary osteoarthritis of both hips Osteoarthritis of lumbar spine, unspecified spinal osteoarthritis complication status Osteoarthritis of both hands, unspecified osteoarthritis type Osteoarthritis of both feet, unspecified osteoarthritis type Osteoarthritis of both acromioclavicular joints Osteoarthritis of cervical spine, unspecified spinal osteoarthritis complication status Lumbar degenerative disc disease Impingement syndrome of both shoulders Timur Naranjo, Bassem Mix, DO [address] [facility] [place] [phone] Servando Jean MD [address] [place] [address] [place] [address] Specialty Diagnoses / Procedures Referred By Contac t Referred To Contact Cardiology Diagnoses Coronary artery disease involving [place] coronary artery, unspecified whether angina present, unspecified whether [place] or transplanted heart Angina pectoris (HCC) Pre-operative cardiovascular examination Procedures ECG 12 Lead Jessica Zuñiga MD [address] [facility] [address] [place] [address] Referral ID Status Reason Start Date Expiration Date V isits Requested Visits Authorized [id number] Authorized 08/27/2021 08/27/2022 1 1 Assessments Diagnosis Right carpal tunnel syndrome - Primary Carpal tunnel syndrome Cervicalgia Dorsalgia Pain in thoracic spine Paresthesia of both hands Bilateral carpal tunnel synd ramon Bilateral foot pain Pain in limb Disorder of bone and cartila ge Disorder of bone and cartilage, unspecified Chronic pain of both shoulde rs Pain in joint, shoulder region Fibromyalgia Mylagia and myositis, unspecified Bilateral biceps tendonitis Tendonitis of both rotator c uffs Bilateral elbow joint pain Lateral epicondylitis of bot h elbows Lateral epicondylitis of elbow Bilateral medial epicondylit is of elbow joint Bilateral wrist pain Bilateral hand pain Osteoarthritis of both hands , unspecified osteoarthritis type Weakness of both hands Left hip pain Pain in joint, pelvic region and thigh Greater trochanteric bursiti s of left hip Enthesopathy of hip region Chronic pain of left knee Pain in joint, lower leg Osteoarthritis of both feet, unspecified osteoarthritis type Fatigue, unspecified type 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 Personal history of other musculoskeletal 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-inflammatories (NSAID) Encounter for long-term (current) use of non-steroidal anti-inflammatories Hypertension, unspecified ty pe Gastroesophageal reflux dise ase, esophagitis presence not specified Hypothyroidism, unspecified type Type II diabetes mellitus wi th neurological manifestations Type II or unspecified type diabetes mellitus with neurological manifestations, not stated as uncontrolled Lower abdominal pain Abdominal pain, other specified site Diagnosis Non-intractable vomiting wit h nausea, unspecified vomiting type - Primary Generalized pruritus Unspecified pruritic disorder Dehydration Diagnosis Acute renal failure, unspecified acute renal failure type Diagnosis Acute renal failure, unspecified acute renal failure type Diagnosis Acute renal failure, unspecified acute renal failure type Diagnosis Left hip pain Pain in joint, pelvic region and thigh Diagnosis Carpal tunnel syndrome of right wrist- Primary Carpal tunnel syndrome Cubital tunnel syndrome on left Lesion of ulnar nerve Diagnosis Chronic right shoulder pain- Primary Pain in joint, shoulder region Left hip pain Pain in joint, pelvic region and thigh Diagnosis Carpal tunnel syndrome of right wrist- Primary Carpal tunnel syndrome Diagnosis Abnormal electrocardiogram Nonspecific abnormal electrocardiogram (ECG) (EKG) Atrial premature contractions Supraventricular premature beats Palpitations Diagnosis Intermittent claudication Peripheral vascular disease, unspecified Pre-operative clearance Preoperative examination, unspecified Atherosclerosis of [place] coronary artery of [place] heart, angina presence unspecified Diagnosis Chronic right shoulder pain Pain in joint, shoulder region Diagnosis Carpal tunnel syndrome, right- Primary Carpal tunnel syndrome Pre-op testing Preoperative examination, unspecified Carpal tunnel syndrome on right Carpal tunnel syndrome Diagnosis Post-op pain- Primary Other acute postoperative pain Diagnosis S/P carpal tunnel release- Rt- Primary Other postprocedural status Diagnosis Fatigue Other malaise and fatigue Essential hypertension, benign Diabetes mellitus Type II or unspecified type diabetes mellitus without mention of complication, not stated as uncontrolled Hyperlipidemia Other and unspecified hyperlipidemia CVD (cardiovascular disease) Unspecified cardiovascular disease 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 Personal history of other musculoskeletal disorders Hypomagnesemia Disorders of magnesium metabolism Anemia Anemia, unspecified SALVATORE (acute kidney injury) Acute kidney failure, unspecified Dehydration Elevated TSH Other abnormal blood chemistry Diagnosis Left hip pain- Primary Pain in joint, pelvic region and thigh Diagnosis Gouty arthropathy- Primary Gouty arthropathy, unspecified DDD (degenerative disc disease), cervical Degeneration of cervical intervertebral disc Calcific tendonitis of right shoulder Bilateral calcaneal spurs IgG monoclonal gammopathy Monoclonal paraproteinemia Anemia, unspecified type Personal history of kidney stones Personal history of urinary calculi Patient non adherence Personal history of noncompliance with medical treatment, presenting hazards to health Noncompliance Personal history of noncompliance with medical treatment, presenting hazards to health 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 Personal history of other musculoskeletal disorders Vitamin D deficiency Unspecified vitamin D deficiency Type II diabetes mellitus with neurological manifestations Type II or unspecified type diabetes mellitus with neurological manifestations, not stated as uncontrolled Hypomagnesemia 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, left Fibromyalgia Mylagia and myositis, unspecified Carpal tunnel syndrome of right wrist Carpal tunnel syndrome Thoracic degenerative disc disease Degeneration of thoracic or thoracolumbar intervertebral disc Scoliosis of thoracic spine, unspecified scoliosis type Primary osteoarthritis, right wrist Primary osteoarthritis of left knee Primary localized osteoarthrosis, lower leg Primary osteoarthritis of both hips Primary localized osteoarthrosis, pelvic region and thigh Osteoarthritis of lumbar spine, unspecified spinal osteoarthritis complication status Osteoarthritis of both hands, unspecified osteoarthritis type Osteoarthritis of both feet, unspecified osteoarthritis type Osteoarthritis of both acromioclavicular joints Osteoarthritis of cervical spine, unspecified spinal osteoarthritis complication status Lumbar degenerative disc disease Degeneration of lumbar or lumbosacral intervertebral disc Impingement syndrome of both shoulders Other affections of shoulder region, not elsewhere classified Discharge Instructions The following attachments cannot be sent through Care Everywhere. * Vomiting (Adult) (Nicaraguan) * Dehydration ([place]icaraguan) in this encounter* Instructions* Jennifer Peres RN - 01/30/2020 Leti Dela Cruz 01/30/2020 BRAVO COTE M.D. HOME INSTRUCTIONS FOR OUTPATIENT HAND SURGERY: Following your surgery, you will have a dressing on your arm or hand. Depending on the type of surgery, it may be a soft gauze dressing, doug bandage, cast or a combination of these. It is important to keep this dressing clean and dry, as it is meant to stay in place until you follow-up with the doctor or therapist. The surgeon may inform you or your family on the day of surgery if these instructions may be modified. In the setting of many small hand procedures, the wrap can be replaced with another type of bandage. If advised that it is ok, another wrap or even a waterproof band aide can be used over your incision. In all cases avoid getting the incision wet and observe it for any drainage that may appear. Your bandage should not be tight or rub you in a way that is problematic. Sometimes swelling can change this and cause a problem. If it should become tight or rub you in a way that is causing excessive discomfort in most situations loosening the wrap is the first step and can be done without concern. However, in the setting of a fracture or tendon repair please notify surgeon before unwrapping your surgical wound. Please do not apply neosporin or any other ointment on your incision until after the sutures have been removed. If you note a large amount of drainage, please contact your doctor. There will be some discomfort or pain at the operative site. This can be lessened by the use of an ice pack, elevating your hand above the level of your heart, and by the use of pain medication as needed. After the first 24 hours, you should use the operated hand to the extent your dressing will allow and make a fist 20 times an hour. This will help decrease swelling, especially in the fingers, and aid in lessening stiffness following surgery. Avoid lifting anything heavier than a gallon of milk with your surgical hand until you sutures are removed. This is most important if the surgical incision is on your palm. Lifting something too heavy could lead to the tearing out of your sutures and result wound complications. In addition, you may be instructed to begin a therapy program in the days following your surgery. If this is the case, you will be notified. If there are any questions or problems, please feel free to contact your physician by calling [phone] ([phone]). If it is after hours you can contact the admissions gate attendant doctor by calling [facility] at [phone]. Prescription refills will only be done during normal business hours. Please allow 48 hours for yourprescription to be refilled. There are certain restrictions that apply to the first 24 hours following surgery, especially afterhaving a generalor regional anesthetic: 1. Do not operate power equipment today (including cars, motorcycles, power saws, drills, etc.) 2. Do not sign any legal documents today. 3. Advance diet slowly, starting with liquids. No alcoholic beverages for at least 24 hours (longer if you are taking prescription pain medication). 4. You should be accompanied by an adult for the next 24 hours. If you do not have a post-operative appointment scheduled with your doctor please call the office on the next business day for an appointment at [phone] ([phone]) documented in this encounter* Discharge Instr - Activity* Dayanna Lawson RN - 10/16/2019 10:25 AM EDT Resume home activity as tolerated. * Discharge Instr - Diet* Dayanna Lawson RN - 10/16/2019 10:25 AM EDT Resume home diabetic diet as tolerated. * Discharge Instr - Notify* Dayanna Lawson RN - 10/16/2019 10:26 AM EDT Call anytime you think you may need emergency care. For example, call if: You passed out (lost consciousness). You have dizziness along with symptoms of a heart attack. These may include: Chest pain or pressure, or a strange feeling in the chest. Sweating. Shortness of breath. Nausea or vomiting. Pain, pressure, or a strange feeling in the back, neck, jaw, or upper belly or in one or both shoulders or arms. Lightheadedness or sudden weakness. A fast or irregular heartbeat. You have symptoms of a stroke. These may include: Sudden numbness, tingling, weakness, or loss of movement in your face, arm, or leg, especially on only one side of your body. Sudden vision changes. Sudden trouble speaking. Sudden confusion or trouble understanding simple statements. Sudden problems with walking or balance. A sudden, severe headache that is different from past headaches. Call your doctor now or seek immediate medical care if: You feel dizzy and have a fever, headache, or ringing in your ears. You have new or increased nausea and vomiting. Your dizziness does not go away or comes back. * Attachments The following attachments cannot be sent through Care Everywhere. * Fatigue (Nicaraguan) * Dizziness ([place]) documented in this encounter History of Present Illness * Debby Givens LPN - 04/03/2019 1:00 PM EST Subjective Chief Complaint Patient presents with Hand Pain B hand numbness and tingling New Patient Review of Systems Constitutional: Negative for chills, fatigue and fever. Eyes: Negative for visual disturbance. Respiratory: Negative for shortness of breath. Cardiovascular: Positive for chest pain. Gastrointestinal: Positive for abdominal pain. Negative for blood in stool. Endocrine: Positive for polydipsia. Genitourinary: Negative for hematuria. Musculoskeletal: Positive for arthralgias and myalgias. Neurological: Positive for dizziness. Negative for seizures. Hematological: Does not bruise/bleed easily. Psychiatric/Behavioral: Positive for dysphoric mood. documented in this encounter* Lele Murray DO - 04/15/2019 1:45 PM EST Chief Complaint Patient presents with Left Hip - Follow-up Right Shoulder - Pain HPI Pain Radiation To: down arm Pain Duration: approx. 2 yrs. Pain Frequency: frequent Pain Quality: sharp Factors That Aggravate Pain: activity(lifting) Factors That Relieve Pain: rest Dictation on: 04/15/2019 3:52 PM by: LELE MURRAY [[id number]] EXAM SHOULDER EXAM RIGHT LEFT Inspection No swelling. No atrophy. No deformity. No swelling. No atrophy. No deformity. Palpation No tenderness to palpation. No tenderness to palpation. ROM FF: 180 Abd: 180 IR: 80 ER: 80 FF: 180 Abd: 180 IR: 80 ER: 80 Strength Supraspinatus: 5/5 ER: 5/5 Lift off/belly press: 5/5 Supraspinatus: 5/5 ER: 5/5 Lift off/belly press: 5/5 Neers: posRt Bailey: pos-Rt Apprehension: NEG Dane's: NEG Speed's: NEG Yergason's: NEG Crossover: NEG General medical exam: Constitutional: A&O x 3. No acute distress HEENT: EOMI. Conjunctiva normal. Trachea midline. Head: AT , NC Neck: Supple CV : Normal rate Pulm: No audible wheezing. No respiratory distress Neuro: No acute focal neurological deficits. Skin: Warm. Dry. No diaphoresis. Psych: Normal mood and affect. Judgement normal. Nursing notes and vitals reviewed. Visit Vitals Temp 98.3 F (36.8 C) (Temporal) Ht 1.524 m (5') Wt 59.9 kg (132 lb) BMI 25.78 kg/m ROS Gen: No recent fevers Skin: No new rash Eyes: No blurred vision Resp: No recent wheezing GI : No acute loss of bowel : No acute incontinence Heme: No easy bleeding or bruising Endocrine: No extreme hot/cold intolerance MSK : Negative except per HPI Neuro: Negative except per HPI PMH, PSH, FMH, social, meds and allergies reviewed and updated in chart. LARGE JOINT INJECTION: R subacromial bursa Date/Time: 04/15/2019 2:11 PM Supporting Documentation Indications: pain Procedure Details Location: shoulder - R subacromial bursa Local Anesthetic Used: mL of ethyl chloride (cold spray) Needle size: 22 G Medication Verification: I have personally verified and performed the final check of the medication(s) used in this procedure prior to administration. The following items were included during the verification process for medication(s) administered: drug name, strength, volume, expiration, physical integrity and appearance of the medication(s). Medications administered: 3 mL lidocaine 10 mg/mL; 1 mL triamcinolone 40 MG/ML Patient tolerance: patient tolerated the procedure well with no immediate complications Consent: Consent was obtained prior to the procedure after discussion of the risks, benefits and alternatives, and expected outcomes were discussed with the patient. The possibilities of reaction to medication, bleeding, infection, the need for additional procedures, failure to diagnosis a condition, and creating a complication requiring operation were discussed with the patient. The patient concurred with the proposed plan, giving consent. Preparation: Patient was prepped in the usual sterile fashion with Betadine and alcohol. *Portions of this note may have been created with [employer] or other software which leads to grammatical and typographical errors which are not car sales representative of the intent with my spoken words. Clinical engineer first assistant/AT/MA was acting as a scribe today for this note. I have performed all essentialcomponents of the history, and physical exam. I have confirmed the diagnosis and developed a plan of care at this visit. I have reviewed the note following the visit and have made edits as appropriate to my evaluation and plan of care. Lele Murray DO * Seth Solorzano - 04/15/2019 1:45 PM EST Associated Order(s): LARGE JOINT INJECTION: R subacromial bursa Post-Procedure Diagnose(s): Chronic right shoulder pain Chief Complaint Patient presents with Left Hip - Follow-up Right Shoulder - Pain HPI Pain Radiation To: down arm Pain Duration: approx. 2 yrs. Pain Frequency: frequent Pain Quality: sharp Factors That Aggravate Pain: activity(lifting) Factors That Relieve Pain: rest EXAM SHOULDER EXAM RIGHT LEFT Inspection No swelling. No atrophy. No deformity. No swelling. No atrophy. No deformity. Palpation No tenderness to palpation. No tenderness to palpation. ROM FF: 180 Abd: 180 IR: 80 ER: 80 FF: 180 Abd: 180 IR: 80 ER: 80 Strength Supraspinatus: 5/5 ER: 5/5 Lift off/belly press: 5/5 Supraspinatus: 5/5 ER: 5/5 Lift off/belly press: 5/5 Neers: posRt Bailey: pos-Rt Apprehension: NEG Dane's: NEG Speed's: NEG Yergason's: NEG Crossover: NEG General medical exam: Constitutional: A&O x 3. No acute distress HEENT: EOMI. Conjunctiva normal. Trachea midline. Head: AT , NC Neck: Supple CV : Normal rate Pulm: No audible wheezing. No respiratory distress Neuro: No acute focal neurological deficits. Skin: Warm. Dry. No diaphoresis. Psych: Normal mood and affect. Judgement normal. Nursing notes and vitals reviewed. Visit Vitals Temp 98.3 F (36.8 C) (Temporal) Ht 1.524 m (5') Wt 59.9 kg (132 lb) BMI 25.78 kg/m ROS Gen: No recent fevers Skin: No new rash Eyes: No blurred vision Resp: No recent wheezing GI : No acute loss of bowel : No acute incontinence Heme: No easy bleeding or bruising Endocrine: No extreme hot/cold intolerance MSK : Negative except per HPI Neuro: Negative except per HPI PMH, PSH, FMH, social, meds and allergies reviewed and updated in chart. LARGE JOINT INJECTION: R subacromial bursa Date/Time: 04/15/2019 2:11 PM Supporting Documentation Indications: pain Procedure Details Location: shoulder - R subacromial bursa Local Anesthetic Used: mL of ethyl chloride (cold spray) Needle size: 22 G Medication Verification: I have personally verified and performed the final check of the medication(s) used in this procedure prior to administration. The following items were included during the verification process for medication(s) administered: drug name, strength, volume, expiration, physical integrity and appearance of the medication(s). Medications administered: 3 mL lidocaine 10 mg/mL; 1 mL triamcinolone 40 MG/ML Patient tolerance: patient tolerated the procedure well with no immediate complications Consent: Consent was obtained prior to the procedure after discussion of the risks, benefits and alternatives, and expected outcomes were discussed with the patient. The possibilities of reaction to medication, bleeding, infection, the need for additional procedures, failure to diagnosis a condition, and creating a complication requiring operation were discussed with the patient. The patient concurred with the proposed plan, giving consent. Preparation: Patient was prepped in the usual sterile fashion with Betadine and alcohol. *Portions of this note may have been created with [employer] or other software which leads to grammatical and typographical errors which are not car sales representative of the intent with my spoken words. documented in this encounter* Teresa Chew - 05/30/2019 2:00 PM EST Review of Systems Constitutional: Negative for chills and fever. HENT: Negative for hearing loss. Eyes: Negative for visual disturbance. Respiratory: Negative for shortness of breath. Cardiovascular: Negative for chest pain. Gastrointestinal: Negative for abdominal pain and blood in stool. Endocrine: Negative for polydipsia. Genitourinary: Negative for hematuria. Musculoskeletal: Negative for arthralgias and myalgias. Neurological: Negative for dizziness, seizures and numbness. Hematological: Does not bruise/bleed easily. Psychiatric/Behavioral: Negative for dysphoric mood. documented in this encounter* Lele Murray DO - 12/24/2019 1:30 PM EDT Chief Complaint Patient presents with Right Shoulder - Pain, Follow-up HPI Pain Radiation To: down arm to fingers Pain Duration: 2-3 yrs. Pain Frequency: constant Pain Quality: aching, sharp, dull Factors That Aggravate Pain: activity Factors That Relieve Pain: (nothing) Leti is here in followup and last seen in March 2019. 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 She has had a similar worsening right shoulder pain recently. IMPRESSION/PLAN: She does have x-rays from April 15, 2019, that showed mild-to- moderate acromioclavicular arthritic changes. Subacromial impingement and possibility of rotator cuff tear. I recommended a home exercise program for her and this was discussed in detail. Thera-Band given. She tolerated the injection well. Continue activity modification and medications. Re-evaluate in 1 month. ([id number]) EXAM SHOULDER EXAM RIGHT LEFT Inspection No swelling. No atrophy. No deformity. No swelling. No atrophy. No deformity. Palpation No tenderness to palpation. No tenderness to palpation. ROM FF: 90 Abd: 90 IR: limited ER: limited FF: 180 Abd: 180 IR: 80 ER: 80 Strength Supraspinatus: 5/5 ER: 5/5 Lift off/belly press: 5/5 Supraspinatus: 5/5 ER: 5/5 Lift off/belly press: 5/5 Neers: pos rt Bailey: pos rt Apprehension: NEG Dane's: NEG Speed's: NEG Yergason's: NEG Crossover: NEG General medical exam: Constitutional: A&O x 3. No acute distress HEENT: EOMI. Conjunctiva normal. Trachea midline. Head: AT , NC Neck: Supple CV : Normal rate Pulm: No audible wheezing. No respiratory distress Neuro: No acute focal neurological deficits. Skin: Warm. Dry. No diaphoresis. Psych: Normal mood and affect. Judgement normal. Nursing notes and vitals reviewed. Visit Vitals Temp 98 F (36.7 C) (Temporal) Ht 1.499 m (4' 11) Wt 60.7 kg (133 lb 12.8 oz) BMI 27.02 kg/m ROS Gen: No recent fevers Skin: No new rash Eyes: No blurred vision Resp: No recent wheezing GI : No acute loss of bowel : No acute incontinence Heme: No easy bleeding or bruising Endocrine: No extreme hot/cold intolerance MSK : Negative except per HPI Neuro: Negative except per HPI PMH, PSH, FMH, social, meds and allergies reviewed and updated in chart. Therapeutic corrective home exercise program discussed in detail today. Rehabilitation program will focus on improving mobility, strength and coordination. Exercises demonstrated and the patient displayed proficiency in the performance of each exercise. Handout given detailing the important components of the routine. Proper progression was discussed and the patient was instructed to call the office anytime with questions. A total of 8+ minutes was spent [id number] with the patient ensuring understanding of this exercise program. *Portions of this note may have been created with [employer] or other software which leads to grammatical and typographical errors which are not car sales representative of the intent with my spoken words. Clinical engineer first assistant/AT/EMILY was acting as a scribe today for this note. I have performed all essentialcomponents of the history, and physical exam. I have confirmed the diagnosis and developed a plan of care at this visit. I have reviewed the note following the visit and have made edits as appropriate to my evaluation and plan of care. Lele Murray DO * Seth Solorzano - 12/24/2019 1:30 PM EDT Associated Order(s): LARGE JOINT/BURSA INJECTION AND/OR ASPIRATION: R subacromial bursa Post-Procedure Diagnose(s): Chronic right shoulder pain Chief Complaint Patient presents with Right Shoulder - Pain, Follow-up HPI Pain Radiation To: down arm to fingers Pain Duration: 2-3 yrs. Pain Frequency: constant Pain Quality: aching, sharp, dull Factors That Aggravate Pain: activity Factors That Relieve Pain: (nothing) EXAM SHOULDER EXAM RIGHT LEFT Inspection No swelling. No atrophy. No deformity. No swelling. No atrophy. No deformity. Palpation No tenderness to palpation. No tenderness to palpation. ROM FF: 90 Abd: 90 IR: limited ER: limited FF: 180 Abd: 180 IR: 80 ER: 80 Strength Supraspinatus: 5/5 ER: 5/5 Lift off/belly press: 5/5 Supraspinatus: 5/5 ER: 5/5 Lift off/belly press: 5/5 Neers: pos rt Bailey: pos rt Apprehension: NEG Dane's: NEG Speed's: NEG Yergason's: NEG Crossover: NEG General medical exam: Constitutional: A&O x 3. No acute distress HEENT: EOMI. Conjunctiva normal. Trachea midline. Head: AT , [place] Neck: Supple CV : Normal rate Pulm: No audible wheezing. No respiratory distress Neuro: No acute focal neurological deficits. Skin: Warm. Dry. No diaphoresis. Psych: Normal mood and affect. Judgement normal. Nursing notes and vitals reviewed. Visit Vitals Temp 98 F (36.7 C) (Temporal) Ht 1.499 m (4' 11) Wt 60.7 kg (133 lb 12.8 oz) BMI 27.02 kg/m ROS Gen: No recent fevers Skin: No new rash Eyes: No blurred vision Resp: No recent wheezing GI : No acute loss of bowel : No acute incontinence Heme: No easy bleeding or bruising Endocrine: No extreme hot/cold intolerance MSK : Negative except per HPI Neuro: Negative except per HPI PMH, PSH, FMH, social, meds and allergies reviewed and updated in chart. Therapeutic corrective home exercise program discussed in detail today. Rehabilitation program will focus on improving mobility, strength and coordination. Exercises demonstrated and the patient displayed proficiency in the performance of each exercise. Handout given detailing the important components of the routine. Proper progression was discussed and the patient was instructed to call the office anytime with questions. A total of 8+ minutes was spent [id number] with the patient ensuring understanding of this exercise program. LARGE JOINT/BURSA INJECTION AND/OR ASPIRATION: R subacromial bursa Date/Time: 12/24/2019 1:30 PM Supporting Documentation Indications: pain Procedure Details: Location: shoulder - R subacromial bursa Local Anesthetic: ethyl chloride (cold spray) Needle size: 22 G Medication Verification: I have personally verified and performed the final check of the medication(s) used in this procedure prior to administration. The following items were included during the verification process for medication(s) administered: drug name, strength, volume, expiration, physical integrity and appearance of the medication(s). Medications administered: 3 mL lidocaine 10 mg/mL; 1 mL triamcinolone 40 MG/ML Patient tolerance: patient tolerated the procedure well with no immediate complications Consent: Consent was obtained prior to the procedure after discussion of the risks, benefits and alternatives, and expected outcomes were discussed with the patient. The possibilities of reaction to medication, bleeding, infection, the need for additional procedures, failure to diagnosis a condition, and creating a complication requiring operation were discussed with the patient. The patient concurred with the proposed plan, giving consent. Preparation: Patient was prepped in the usual sterile fashion. The patient was prepped with Betadine and alcohol. *Portions of this note may have been created with [employer] or other software which leads to grammatical and typographical errors which are not car sales representative of the intent with my spoken words. documented in this encounter* Teresa Chew - 01/21/2020 1:40 PM EDT Review of Systems Constitutional: Negative for chills and fever. HENT: Negative for hearing loss. Eyes: Negative for visual disturbance. Respiratory: Negative for shortness of breath. Cardiovascular: Negative for chest pain. Gastrointestinal: Negative for abdominal pain and blood in stool. Endocrine: Negative for polydipsia. Genitourinary: Negative for hematuria. Musculoskeletal: Negative for arthralgias and myalgias. Neurological: Negative for dizziness, seizures and numbness. Hematological: Does not bruise/bleed easily. Psychiatric/Behavioral: Negative for dysphoric mood. documented in this encounter* Daina Cortez RN - 01/28/2020 7:31 AM EDT CF Leti Dela Cruz Female, 64 y.o., 1955 (M) PCP: Yamila Hayden MD Primary Cvg: Medicare [facility]/Medicare [facility] Next Appt With Orthopaedics 01/28/2020 at 2:45 PM RE: labs Received: 4 days ago Message Contents JESSU Rodriges RN Thanks. Luz, may ask about this one. I already questioned the EKG. Previous Messages ----- Message ----- From: Daina Crotez RN Sent: 01/24/2020 1:01 PM EDT To: Marzena Beltran PA-C Subject: RE: labs fyi ----- Message ----- From: Heath Ford DO Sent: 01/24/2020 12:32 PM EDT To: Daina Cortez RN Subject: RE: labs She may proceed with surgery. I reviewed the labs and EKG to include an ECHO. She can meet 4 mets. She is intermediate risk for surgery. Please make sure the patient and surgeon are aware. ----- Message ----- From: Daina Cortez RN Sent: 01/23/2020 12:12 PM EDT To: Heath Ford DO Subject: labs Please review LABS and advise. Thanks! * Daina Cortez RN - 01/24/2020 2:25 PM EDT CF Leti Dela Cruz Female, 64 y.o., 1955 (M) PCP: Yamila Hayden MD Primary Cvg: Medicare [facility]/Medicare [facility] Next Appt With Orthopaedics 01/28/2020 at 2:45 PM RE: labs Received: Today Message Contents DO Daina Mai RN She may proceed with surgery. I reviewed the labs and EKG to include an ECHO. She can meet 4 mets. She is intermediate risk for surgery. Please make sure the patient and surgeon are aware * Daina Cortez RN - 01/24/2020 2:24 PM EDT ===View-only below this line=== ----- Message ----- From: Heath Ford DO Sent: 01/24/2020 1:05 PM EDT To: Daina Cortez RN Subject: RE: ekg/clearance Saw the note she may proceed ----- Message ----- From: Daina Cortez RN Sent: 01/24/2020 12:11 PM EDT To: Heath Ford DO Subject: FW: ekg/clearance Dr Ford, Please see my note to Dr Cali and his reply. The patient was already cleared in 11/28/2019 with him. In looking at he most recent EKG done at [facility] do you feel she needs any updated clearance appt? ----- Message ----- From: Sherwin Cali II, MD Sent: 01/24/2020 11:47 AM EDT To: Daina Cortez RN Subject: RE: ekg/clearance Normally, I would just tell my office staff to communicate to you that this couldn't be done and proceed without a long explanation. However, we get so many requests like this that I thought that if I explained myself it would decrease the frequency of these. The problem is that you are actually asking me to do several things that you haven't accounted for. The first is to review the ECG and compare it to the previous study. The second is to determine if there is a potentially significant difference that may be of clinical significance, and then act to correct the problem. The third is to assume that a patient that I haven't examined or spoken with in months has an unchanged exam, and no new relevant physical exam findings from a cardiac standpoint. The final one is a request for me to take responsibility from a medical/legal standpoint for the patient without having done any of those things. If something were to go wrong the surgeon and the anesthesiologist would both say that the courtesy car driver said that it was okay, and thereby attempt to absolved themselves of all responsibility. Neither one of them would blindly accept this responsibility if the circumstances were reversed. If the patient needs a preoperative evaluation she needs to be scheduled for such. If one is not being requested then she proceeds with surgery as planned under the guidance of her surgeon and her anesthesiologist. I hope that this helps. Sherwin Cali ----- Message ----- From: Daina Cortez RN Sent: 01/24/2020 7:25 AM EDT To: Paris Bae RN, Nelli Echevarria RN, * Subject: ekg/clearance Good Morning Dr. Cali, This patient had a cardiac clearance with you in November for CTR surgery. EKGs for surgery need to be within 3 months of the surgery date and hers was not so we did an EKG at her [facility] appointment. Would you please review the EKG and let us know if she is still cleared for surgery? Thank you so much! documented in this encounter* Marzena Beltran PA-C - 02/11/2020 2:40 PM EDT 02/11/20 HPI: Leti Dela Cruz presents to the office today 2 weeks status post Right carpal tunnel release, doing well. She has not had complaints. Her numbness and tingling has resolved. PE: Right hand incision is clean and dry and healing well. She is able to make a composite fist. Brisk capillary refill. Skin is warm and dry. Two point Discrimination (mm): 1- Thumb 2- Index 3- Long 4- Ring 5- Small Right 7 7 7 7 7 Left N/a Assessment: S/P Right CTR. Plan: Sutures were removed in the office today. I discussed scar massage. There are no restrictions, she can progress activity as tolerated. Follow up on an as needed basis. * Carole Lehman - 02/11/2020 2:40 PM EDT Review of Systems Constitutional: Negative for chills and fever. HENT: Negative for hearing loss. Eyes: Negative for visual disturbance. Respiratory: Negative for shortness of breath. Cardiovascular: Negative for chest pain. Gastrointestinal: Negative for abdominal pain and blood in stool. Endocrine: Negative for polydipsia. Genitourinary: Negative for hematuria. Musculoskeletal: Negative for arthralgias and myalgias. Neurological: Negative for dizziness, seizures and numbness. Hematological: Does not bruise/bleed easily. Psychiatric/Behavioral: Negative for dysphoric mood. documented in this encounter* Radha Sanchez LSW - 10/16/2019 9:17 AM EDT Met with patient this date to discuss discharge plans. Patient states that her goal upon discharge is home with no needs. States she is independent and does not use a cane or a walker. States she hasbeen very tired lately. States her elderly mother is in the home with her and she cares for her as needed. Asked patient if her mother was safe while she is admitted to the hospital. She states that she is and is able to care for herself for the most part just can't make big meals or garden or drive. Patient denies need for home health care stating she is independent. Provided my contact information and advised patient to call me if any new needs arise. CM to follow and assist in discharge planning. 10/16/19 0932 Information Source Information Source patient Contact Information Social Work Contact Name YAO [employer] Living Environment Lives With parent(s) (Lives with her elderly mother and helps care for her as needed) Living Arrangements house Provides Primary Care For parent(s) (Lives with elderly mother and helps her as needed) Primary Care Provided By self Support System Immediate family Able to Return to Prior Arrangements yes Employment/Financial Employed? No Employment/Financial Concerns no Financial Concerns none Food Insecurity In the past 12 months, were you worried about food running out before you are able to get more? No In the past 12 months, has food run out, and you didn't have money to get more? No Cognitive/Perceptual/Developmental Current Mental Status/Cognitive Functioning no deficits noted;not oriented to time Recent Changes in Mental Status/Cognitive Functioning no changes Developmental Stage Stage 7 (35-65 years/Middle Adulthood) Generativity vs. Stagnation Emotional/Psychological Affect no deficits noted Mood congruent to situation Verbal Skills no deficits noted Current Interpersonal Conduct/Behavior appropriate to situation Mental Health Conditions/Symptoms bipolar affective disorder;depression;anxiety disorder Thought Process Alterations no deficits noted Referral Information Referral Source physician documented in this encounter* Lele Murray, - 03/15/2019 12:45 PM EDT Chief Complaint Patient presents with Left Hip - Pain HPI Pain Radiation To: down leg Pain Duration: 1 1/2 yrs. Pain Frequency: frequent Pain Quality: aching, sharp Factors That Aggravate Pain: activity Factors That Relieve Pain: (nothing) Dictation on: 03/15/2019 1:32 PM by: LELE MURRAY [[email or web address]] EXAM Bilateral hips examined today. INSPECTION: No swelling. No ecchymosis. GAIT: Non-antalgic. PALPATION: No tenderness. Tenderness at L trochanteric bursa. ROM: Full AROM. STRENGTH: 5/5 NEO: Neg. FADIR: Neg. General medical exam: Constitutional: A&O x 3. No acute distress HEENT: EOMI. Conjunctiva normal. Trachea midline. Head: AT , [place] Neck: Supple CV : Normal rate Pulm: No audible wheezing. No respiratory distress Neuro: No acute focal neurological deficits. Skin: Warm. Dry. No diaphoresis. Psych: Normal mood and affect. Judgement normal. Nursing notes and vitals reviewed. Visit Vitals Temp 98.2 F (36.8 C) (Temporal) Ht 1.524 m (5') Wt 60.8 kg (134 lb) BMI 26.17 kg/m ROS Gen: No recent fevers Skin: No new rash Eyes: No blurred vision Resp: No recent wheezing GI : No acute loss of bowel : No acute incontinence Heme: No easy bleeding or bruising MSK : Negative except per HPI Neuro: Negative except per HPI PMH, PSH, FMH, social, meds and allergies reviewed and updated in chart. LARGE JOINT INJECTION: L greater trochanteric bursa Date/Time: 03/15/2019 1:18 PM Supporting Documentation Indications: pain Procedure Details Location: hip - L greater trochanteric bursa Local Anesthetic Used: mL of ethyl chloride (cold spray) Needle size: 22 G Medication Verification: I have personally verified and performed the final check of the medication(s) used in this procedure prior to administration. The following items were included during the verification process for medication(s) administered: drug name, strength, volume, expiration, physical integrity and appearance of the medication(s). Medications administered: 3 mL lidocaine 10 mg/mL; 1 mL triamcinolone 40 MG/ML Patient tolerance: patient tolerated the procedure well with no immediate complications Consent: Consent was obtained prior to the procedure after discussion of the risks, benefits and alternatives, and expected outcomes were discussed with the patient. The possibilities of reaction to medication, bleeding, infection, the need for additional procedures, failure to diagnosis a condition, and creating a complication requiring operation were discussed with the patient. The patient concurred with the proposed plan, giving consent. Preparation: Patient was prepped in the usual sterile fashion with Betadine and alcohol. *Portions of this note may have been created with [employer] or other software which leads to grammatical and typographical errors which are not car sales representative of the intent with my spoken words. Clinical engineer first assistant/AT/EMILY was acting as a scribe today for this note. I have performed all essentialcomponents of the history, and physical exam. I have confirmed the diagnosis and developed a plan of care at this visit. I have reviewed the note following the visit and have made edits as appropriate to my evaluation and plan of care. Lele Murray DO * Mark Ren, ATC - 03/15/2019 12:45 PM EDT Associated Order(s): LARGE JOINT INJECTION: L greater trochanteric bursa Post-Procedure Diagnose(s): Left hip pain Chief Complaint Patient presents with Left Hip - Pain HPI Pain Radiation To: down leg Pain Duration: 1 1/2 yrs. Pain Frequency: frequent Pain Quality: aching, sharp Factors That Aggravate Pain: activity Factors That Relieve Pain: (nothing) EXAM Bilateral hips examined today. INSPECTION: No swelling. No ecchymosis. GAIT: Non-antalgic. PALPATION: No tenderness. Tenderness at L trochanteric bursa. ROM: Full AROM. STRENGTH: 5/5 NEO: Neg. FADIR: Neg. General medical exam: Constitutional: A&O x 3. No acute distress HEENT: EOMI. Conjunctiva normal. Trachea midline. Head: AT , NC Neck: Supple CV : Normal rate Pulm: No audible wheezing. No respiratory distress Neuro: No acute focal neurological deficits. Skin: Warm. Dry. No diaphoresis. Psych: Normal mood and affect. Judgement normal. Nursing notes and vitals reviewed. Visit Vitals Temp 98.2 F (36.8 C) (Temporal) Ht 1.524 m (5') Wt 60.8 kg (134 lb) BMI 26.17 kg/m ROS Gen: No recent fevers Skin: No new rash Eyes: No blurred vision Resp: No recent wheezing GI : No acute loss of bowel : No acute incontinence Heme: No easy bleeding or bruising MSK : Negative except per HPI Neuro: Negative except per HPI PMH, PSH, FMH, social, meds and allergies reviewed and updated in chart. LARGE JOINT INJECTION: L greater trochanteric bursa Date/Time: 03/15/2019 1:18 PM Supporting Documentation Indications: pain Procedure Details Location: hip - L greater trochanteric bursa Local Anesthetic Used: mL of ethyl chloride (cold spray) Needle size: 22 G Medication Verification: I have personally verified and performed the final check of the medication(s) used in this procedure prior to administration. The following items were included during the verification process for medication(s) administered: drug name, strength, volume, expiration, physical integrity and appearance of the medication(s). Medications administered: 3 mL lidocaine 10 mg/mL; 1 mL triamcinolone 40 MG/ML Patient tolerance: patient tolerated the procedure well with no immediate complications Consent: Consent was obtained prior to the procedure after discussion of the risks, benefits and alternatives, and expected outcomes were discussed with the patient. The possibilities of reaction to medication, bleeding, infection, the need for additional procedures, failure to diagnosis a condition, and creating a complication requiring operation were discussed with the patient. The patient concurred with the proposed plan, giving consent. Preparation: Patient was prepped in the usual sterile fashion with Betadine and alcohol. *Portions of this note may have been created with [employer] or other software which leads to grammatical and typographical errors which are not car sales representative of the intent with my spoken words. documented in this encounter* Timur Naranjo, Bassem Mix, - 03/04/2019 2:00 PM EDT History of Present Illness Presence of Pain: complains of pain/discomfort Select Pain Scale: DVPRS (Defense and Veterans Pain Rating Scale) (Adult- Cognitively Intact) DVPRS: Rest: 10- severe pain DVPRS: Activity: 10- severe pain Select Pain Scale: DVPRS (Defense and Veterans Pain Rating Scale) (Adult- Cognitively Intact) Due tocomplex issues I spent at least 50 minutes in face to face time with patient, more than 50% of thattime was spent on counseling and coordination of care. Due to patient's coexisting health problems and co- morbidities treatment is and will be very difficult. Due to patient's coexisting health problems and co-morbidities treatment is and will be very difficult. Patient seen as add on patient today. Patient's lack of compliance makes treatment very difficult. Energy level is zero. GERD is ok. Abdominal pain is yeah and patient is going to F/U with PCP. Patient believes she has pancreatic insufficiency. Joint pain is constant. Back pain is yes and neck pain. Muscle pain is I have fibromyalgia so yeah. Paresthesias fingers. Weakness sometimes legs. Shoulders and hips are really bad. Sulindac did not help and did not bother her. Patient has ran out of hydroxyzine which really helps her itching. B/L wrist splints are not helping. OT did not go well and it did not help her at all and she is not doing HEP and she is taking care of her mother and with the cold weather she is feeling worse. Review of Systems Constitutional: Positive for fatigue. HENT: Negative. Eyes: Negative. Respiratory: Negative. Cardiovascular: HTN Gastrointestinal: Positive for abdominal pain. GERD Patient feels she has pancreatic insufficiency Endocrine: Negative. Genitourinary: Negative. Musculoskeletal: Positive for arthralgias, back pain, myalgias, neck pain and neck stiffness. Skin: Negative. Allergic/Immunologic: Negative. Neurological: Positive for weakness and numbness. DM neuropathy Hematological: Negative. Psychiatric/Behavioral: Negative. Vitals: There were no vitals taken for this visit. Physical Exam Constitutional: She is oriented to person, place, and time. She appears well- developed and well-nourished. HENT: Head: Normocephalic and atraumatic. Right Ear: External ear normal. Left Ear: External ear normal. Nose: Nose normal. Mouth/Throat: Oropharynx is clear and moist. TMJ B/L Decreased ROM and tender Eyes: Pupils are equal, round, and reactive to light. Conjunctivae and EOM are normal. glasses Neck: Neck supple. Cardiovascular: Normal rate, regular rhythm and normal heart sounds. Pulses: Radial pulses are 2+ on the right side, and 2+ on the left side. Pulmonary/Chest: Effort normal and breath sounds normal. Abdominal: Soft. Bowel sounds are normal. There is tenderness in the right lower quadrant and left lower quadrant. Musculoskeletal: Right shoulder: She exhibits decreased range of motion, tenderness and bony tenderness. Left shoulder: She exhibits decreased range of motion, tenderness and bony tenderness. Right elbow: Tenderness found. Left elbow: Tenderness found. Right wrist: She exhibits decreased range of motion and tenderness. Left wrist: She exhibits decreased range of motion and tenderness. Right knee: Normal. Left knee: Tenderness found. Right ankle: Normal. Left ankle: Normal. Back: Right upper arm: She exhibits tenderness. Left upper arm: She exhibits tenderness. Right forearm: She exhibits tenderness. Left forearm: She exhibits tenderness. Right hand: She exhibits decreased range of motion and tenderness. Left hand: She exhibits decreased range of motion and tenderness. Hands: Right upper leg: Normal. Left upper leg: She exhibits tenderness. Right lower leg: Normal. Left lower leg: Normal. Feet: 16/18 fibro tender points Neurological: She is alert and oriented to person, place, and time. A sensory deficit is present. She displays a negative Romberg sign. Decreased lath hand strength B/L hands with Positive Tinel's L wrist Skin: Skin is warm and dry. Psychiatric: She has a normal mood and affect. Her behavior is normal. Judgment and thought contentnormal. Nursing note and vitals reviewed. Neurologic Exam Mental Status Oriented to person, place, and time. Cranial Nerves CN III, IV, Pupils are equal, round, and reactive to light. Extraocular motions are normal. Assessment and Plan Encounter Diagnoses Name Primary? Gouty arthropathy Yes DDD (degenerative disc disease), cervical Calcific tendonitis of right shoulder Bilateral calcaneal spurs IgG monoclonal gammopathy Anemia, unspecified type Personal history of kidney stones Patient non adherence Noncompliance 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 Vitamin D deficiency Type II diabetes mellitus with neurological manifestations Hypomagnesemia Ulnar neuropathy at elbow, left Fibromyalgia Carpal tunnel syndrome of right wrist Thoracic degenerative disc disease Scoliosis of thoracic spine, unspecified scoliosis type Primary osteoarthritis, right wrist Primary osteoarthritis of left knee Primary osteoarthritis of both hips Osteoarthritis of lumbar spine, unspecified spinal osteoarthritis complication status Osteoarthritis of both hands, unspecified osteoarthritis type Osteoarthritis of both feet, unspecified osteoarthritis type Osteoarthritis of both acromioclavicular joints Osteoarthritis of cervical spine, unspecified spinal osteoarthritis complication status Lumbar degenerative disc disease Impingement syndrome of both shoulders 1. Time was spent with the patient today in education in re: to all their medical conditions. A complete H&P&ROS was obtained and is either in this note or in the EHR. Please do not hesitate to contact me with any questions or concerns re: this patient. Past History Past medical, surgical, family, and social histories have been reviewed and updated with the patient today and are located elsewhere in the medical record. 2. At patient's request will set up with Chronic Pain Managment 3. Low 25 hydroxy Vit D level at 22.5 with normal 1,25 dihydroxy Vit D level 4. Patient given educational material on fibromyalgia syndrome in the form of a pamphlet from the arthritis foundation. Patient told that generalized stretching and aerobic exercise would be the cornerstone of treatment. Patient would benefit from psych eval and treatment of any underlying depression and/or anxiety disorder. Patient would benefit from eval and F/U treatment by PMR and/or Chronic Pain Management 5. Patient started on Dosoquin 1 pill a day 6. Patient told to stop smoking 7. Cymbalta caused hives. 8. Patient is taking Gabapentin and Trazodone and Depakote. 9. Monitor CBC/LFT/Renal func every 6-12 months as long as patient is on daily NSAID 10. Stop OTC Naproxen 11. Monitor Vit D level every 6 -12 months if remains low rec: eval by endo 12. If patient continues to have trouble with back pain would rec: eval by spinal surgery and/or chronic pain management 13. If neck pain continues rec: eval by spinal surgery and/or chronic pain management 14. If shoulder and elbow and hand and wrist and hip problems continue rec: ortho eval 15. CRP is negative at 10.0 16. Patient is going to F/U with PCP about abdominal pain 17. Negative Celiac, RF, CCP, ADRIANNA, Lyme disease, 18. Mag is low at 1.1 19. Patient started on Mag 1 pill a day 20. Patient told must F/U with PCP about low Mag 21. If CTS problems continue rec: surgical eval 22. If foot problems continue rec: podiatry eval 23. Patient declines referral to PT as she has been there and done that and it did not help 24. Patient stopped Sulindac as it did not help her. 25. Uric acid is elevated at 8.6 26. Patient given educational material on gout in the form of a pamphlet from the arthritis foundation. Patient should remain on Allopurinol life long. Would monitor CBC, LFT, Renal func, uric acid level every 6 - 12 months as long as patient on Allopurinol. Patient can take prednisone 5 mg 8 po q AM times one day decrease by one pill q day until off on a PRN basis any acute attack of gout. 27. Patient's high uric acid is under care of Vladimir Hayden - urology 28. ESR is normal at 17 29. HGB is low at 10.7 and patient is going to F/U with PCP 30. IgG Monoclonal gammopathy 31. Patient has been evaluated at [facility] and was told she did not have cancer 32. Patient declines referral to Podiatry 33. At patient's request will set up with sports Medicine for B/L shoulder and hip pain. 34. No evidence of active CTD/CVD/Inflammatory arthritis 35. EMG shows R CTS and L ulnar neuropathy at elbow (cubital tunnel Syndrome) - at patient's request will set up with surgery. 35. Patient can F/u with me on a PRN basis. I return her to your care. documented in this encounter Chief Complaint and Reason for Visit Chief Complaint diarrhea Follow up 4 M FU S/P [facility] E-ORDER Reason for Visit Fibromyalgia affecti ng multiple sites Polyneuropathy due to type 2 diabetes mellitus Bipolar disorder CKD (chronic kidney disease) stage 3, GFR 30-59 ml/min Hyperlipidemia Hypertension Hypothyroidism Paroxysmal atrial fibrillation Presence of stent in coronary artery Type 2 diabetes mellitus CKD (chronic kidney disease) stage 3, GFR 30-59 ml/min Hyperlipidemia Hypothyroidism 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 GFR 30-59 Dizziness CASTRO (dyspnea on exertion) Fatigue Palpitations Atherosclerotic heart disease of [place] coronary artery without angina pectoris Hyperlipidemia Hypertension Paroxysmal atrial fibrillation Presence of stent in coronary artery Chief Complaint Follow up 4 M FU S/P [facility] ([facility] E-ORDER EORDERS Dizziness (cardiology) PALPITATIONS DIZZINESS SBO CHEST PAIN Reason for Visit Fibromyalgia affecti ng multiple sites Polyneuropathy due to type 2 diabetes mellitus Bipolar disorder CKD (chronic kidney disease) stage 3, GFR 30-59 ml/min Hyperlipidemia Hypertension Hypothyroidism Paroxysmal atrial fibrillation Presence of stent in coronary artery Type 2 diabetes mellitus CKD (chronic kidney disease) stage 3, GFR 30-59 ml/min Hyperlipidemia Hypothyroidism 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 GFR 30-59 Dizziness CASTRO (dyspnea on exertion) Fatigue Palpitations Atherosclerotic heart disease of [place] coronary artery without angina pectoris Hyperlipidemia Hypertension Paroxysmal atrial fibrillation Presence of stent in coronary artery Leukocytosis Small bowel obstruction Chief Complaint Follow up 4 M FU S/P [facility] ([facility] E-ORDER EORDERS Dizziness (cardiology) PALPITATIONS DIZZINESS SBO CHEST PAIN SBO SBO SBO SBO SBO SBO Reason for Visit Fibromyalgia affecti ng multiple sites Polyneuropathy due to type 2 diabetes mellitus Bipolar disorder CKD (chronic kidney disease) stage 3, GFR 30-59 ml/min Hyperlipidemia Hypertension Hypothyroidism Paroxysmal atrial fibrillation Presence of stent in coronary artery Type 2 diabetes mellitus CKD (chronic kidney disease) stage 3, GFR 30-59 ml/min Hyperlipidemia Hypothyroidism 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 GFR 30-59 Dizziness CASTRO (dyspnea on exertion) Fatigue Palpitations Atherosclerotic heart disease of [place] coronary artery without angina pectoris Hyperlipidemia Hypertension Paroxysmal atrial fibrillation Presence of stent in coronary artery Gastroenteritis Leukocytosis Small bowel obstruction Chief Complaint Follow up 4 M FU S/P [facility] ([facility] E-ORDER EORDERS Dizziness (cardiology) PALPITATIONS DIZZINESS SBO CHEST PAIN SBO SBO SBO SBO SBO SBO [facility] FU - KILO ABD PAIN,NAUSEA Reason for Visit Fibromyalgia affecti ng multiple sites Polyneuropathy due to type 2 diabetes mellitus Bipolar disorder CKD (chronic kidney disease) stage 3, GFR 30-59 ml/min Hyperlipidemia Hypertension Hypothyroidism Paroxysmal atrial fibrillation Presence of stent in coronary artery Type 2 diabetes mellitus CKD (chronic kidney disease) stage 3, GFR 30-59 ml/min Hyperlipidemia Hypothyroidism 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 GFR 30-59 Dizziness CASTRO (dyspnea on exertion) Fatigue Palpitations Atherosclerotic heart disease of [place] coronary artery without angina pectoris Hyperlipidemia Hypertension Paroxysmal atrial fibrillation Presence of stent in coronary artery Gastroenteritis Leukocytosis Small bowel obstruction Acute kidney injury Abdominal pain Chief Complaint S/P [facility] ([facility] E-ORDER EORDERS Dizziness (cardiology) PALPITATIONS DIZZINESS SBO CHEST PAIN SBO SBO SBO SBO SBO SBO [facility] FU - KILO ABD PAIN,NAUSEA UPPER RESPITORY INFECTION Reason for Visit Dizziness CASTRO (dyspnea on exertion) Fatigue Palpitations Atherosclerotic heart disease of [place] coronary artery without angina pectoris Hyperlipidemia Hypertension Paroxysmal atrial fibrillation Presence of stent in coronary artery Gastroenteritis Leukocytosis Small bowel obstruction Acute kidney injury Abdominal pain Upper respiratory infection Chief Complaint S/P [facility] ([facility] E-ORDER EORDERS Dizziness (cardiology) PALPITATIONS DIZZINESS SBO CHEST PAIN SBO SBO SBO SBO SBO SBO [facility] FU - KILO ABD PAIN,NAUSEA UPPER RESPITORY INFECTION 10-12 MO F/U EORDER Reason for Visit Dizziness CASTRO (dyspnea on exertion) Fatigue Palpitations Atherosclerotic heart disease of [place] coronary artery without angina pectoris Hyperlipidemia Paroxysmal atrial fibrillation Presence of stent in coronary artery Gastroenteritis Leukocytosis Small bowel obstruction Acute kidney injury Abdominal pain Upper respiratory infection Aortic stenosis Essential hypertension Atherosclerotic heart disease of [place] coronary artery without angina pectoris Hyperlipidemia Paroxysmal atrial fibrillation Presence of stent in coronary artery Chief Complaint S/P [facility] ([facility] E-ORDER EORDERS Dizziness (cardiology) PALPITATIONS DIZZINESS SBO CHEST PAIN SBO SBO SBO SBO SBO SBO [facility] FU - KILO ABD PAIN,NAUSEA UPPER RESPITORY INFECTION 10-12 MO F/U EORDER MURMUR Reason for Visit Dizziness CASTRO (dyspnea on exertion) Fatigue Palpitations Atherosclerotic heart disease of [place] coronary artery without angina pectoris Hyperlipidemia Paroxysmal atrial fibrillation Presence of stent in coronary artery Gastroenteritis Leukocytosis Small bowel obstruction Acute kidney injury Abdominal pain Upper respiratory infection Aortic stenosis Essential hypertension Atherosclerotic heart disease of [place] coronary artery without angina pectoris Hyperlipidemia Paroxysmal atrial fibrillation Presence of stent in coronary artery Chief Complaint EORDERS Dizziness (cardiology) PALPITATIONS DIZZINESS SBO CHEST PAIN SBO SBO SBO SBO SBO SBO [facility] FU - KILO ABD PAIN,NAUSEA UPPER RESPITORY INFECTION 10-12 MO F/U EORDER MURMUR 6 M FU EORDERS Reason for Visit Gastroenteritis Leukocytosis Small bowel obstruction Acute kidney injury Abdominal pain Upper respiratory infection Aortic stenosis Essential hypertension Atherosclerotic heart disease of [place] coronary artery without angina pectoris Hyperlipidemia Paroxysmal atrial fibrillation Presence of stent in coronary artery CKD (chronic kidney disease) stage 3, GFR 30-59 ml/min Hypothyroidism Type 2 diabetes mellitus Chief Complaint UPPER RESPITORY INFE CTION 10-12 MO F/U EORDER MURMUR 6 M FU EORDERS COLD SX Reason for Visit Upper respiratory in fection Aortic stenosis Essential hypertension Atherosclerotic heart disease of [place] coronary artery without angina pectoris Hyperlipidemia Paroxysmal atrial fibrillation Presence of stent in coronary artery CKD (chronic kidney disease) stage 3, GFR 30-59 ml/min Hypothyroidism Type 2 diabetes mellitus Chief Complaint 10-12 MO F/U EORDER MURMUR 6 M FU EORDERS COLD SX [facility] ER FU 1 W FU Reason for Visit Aortic stenosis Essential hypertension Atherosclerotic heart disease of [place] coronary artery without angina pectoris Hyperlipidemia Paroxysmal atrial fibrillation Presence of stent in coronary artery CKD (chronic kidney disease) stage 3, GFR 30-59 ml/min Hypothyroidism Type 2 diabetes mellitus Chest congestion Essential hypertension Otitis media Hypothyroidism Type 2 diabetes mellitus Hearing loss associated with syndrome of both ears Impacted cerumen of right ear Otitis media Tinnitus of both ears Chief Complaint 1 W FU EYE PAIN ILEUS,PANCREATITS,SALVATORE Reason for Visit Hearing loss associa aaron with syndrome of both ears Impacted cerumen of right ear Otitis media Tinnitus of both ears Acute dehydration Acute kidney injury Acute pancreatitis Chronic anticoagulation History of chronic atrial fibrillation History of diabetes mellitus Ileus Nausea vomiting and diarrhea Chief Complaint 1 W FU EYE PAIN ILEUS,PANCREATITS,SALVATORE ILEUS,PANCREATITS,SALVATORE ILEUS,PANCREATITS,SALVATORE ILEUS,PANCREATITS,SALVATORE ILEUS,PANCREATITS,SALVATORE ILEUS,PANCREATITS,SALVATORE ILEUS,PANCREATITS,SALVATORE ILEUS,PANCREATITS,SALVATORE Reason for Visit Hearing loss associa aaron with syndrome of both ears Impacted cerumen of right ear Otitis media Tinnitus of both ears Acute dehydration Acute kidney injury Acute pancreatitis Anemia Chronic anticoagulation Diarrhea History of chronic atrial fibrillation History of diabetes mellitus Hypocalcemia Hypokalemia Hypomagnesemia Ileus Nausea vomiting and diarrhea Sialoadenitis of submandibular gland Abdominal pain Chief Complaint EYE PAIN ILEUS,PANCREATITS,SALVATORE ILEUS,PANCREATITS,SALVATORE ILEUS,PANCREATITS,SALVATORE ILEUS,PANCREATITS,SALVATORE ILEUS,PANCREATITS,SALVATORE ILEUS,PANCREATITS,SALVATORE ILEUS,PANCREATITS,SALVATORE ILEUS,PANCREATITS,SALVATORE [facility] FU - KEEP 1HR Reason for Visit Abdominal pain Acute dehydration Acute kidney injury Acute pancreatitis Anemia Chronic anticoagulation Diarrhea History of chronic atrial fibrillation History of diabetes mellitus Nausea vomiting and diarrhea Hypocalcemia Hypokalemia Hypomagnesemia Ileus Sialoadenitis of submandibular gland Abdominal pain Acute kidney injury Anemia Type 2 diabetes mellitus Chief Complaint EYE PAIN ILEUS,PANCREATITS,SALVATORE ILEUS,PANCREATITS,SALVATORE ILEUS,PANCREATITS,SALVATORE ILEUS,PANCREATITS,SALVATORE ILEUS,PANCREATITS,SALVATORE ILEUS,PANCREATITS,SALVATORE ILEUS,PANCREATITS,SALVATORE ILEUS,PANCREATITS,SALVATORE [facility] FU - KEEP 1HR allergic rxn Reason for Visit Abdominal pain Acute dehydration Acute kidney injury Acute pancreatitis Anemia Chronic anticoagulation Diarrhea History of chronic atrial fibrillation History of diabetes mellitus Nausea vomiting and diarrhea Hypocalcemia Hypokalemia Hypomagnesemia Ileus Sialoadenitis of submandibular gland Abdominal pain Acute kidney injury Anemia Type 2 diabetes mellitus Chief Complaint ILEUS,PANCREATITS,AK I ILEUS,PANCREATITS,SALVATORE ILEUS,PANCREATITS,SALVATORE ILEUS,PANCREATITS,SALVATORE ILEUS,PANCREATITS,SALVATORE ILEUS,PANCREATITS,SALVATORE [facility] FU - KEEP 1HR allergic rxn 6 M FU 3 M FU EORDER OTHER SPECIFIED SOFT TISSUE DISORDERS Reason for Visit Abdominal pain Acute dehydration Acute kidney injury Acute pancreatitis Anemia Chronic anticoagulation Diarrhea History of chronic atrial fibrillation History of diabetes mellitus Nausea vomiting and diarrhea Hypocalcemia Hypokalemia Hypomagnesemia Ileus Sialoadenitis of submandibular gland Abdominal pain Acute kidney injury Anemia Type 2 diabetes mellitus Diabetes Polyneuropathy due to type 2 diabetes mellitus Hyperlipidemia Hypothyroidism 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 GFR 30-59 Acute bronchitis Mass of soft tissue of chest Chief Complaint allergic rxn 6 M FU 3 M FU EORDER OTHER SPECIFIED SOFT TISSUE DISORDERS Abnormal findings on diagnostic imaging of other s ABNORMAL ULTRASOUND Reason for Visit Diabetes Polyneuropathy due to type 2 diabetes mellitus Hyperlipidemia Hypothyroidism 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 GFR 30-59 Acute bronchitis Mass of soft tissue of chest Chief Complaint Abnormal findings on diagnostic imaging of other s ABNORMAL ULTRASOUND EST NEW PT - FORMER [facility] PT 3 WK FU 1 Y FU (Prev PFM pat) Unspecified lump in unspecified breast 3 M FU Reason for Visit Anemia 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 Essential hypertension Hypothyroidism Paroxysmal atrial fibrillation 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 GFR 30-59 Immunization due Smokes cigarettes Establishing care with new doctor, encounter for Bipolar disorder Chronic cough Anemia 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 MARCELINO/EKG RIGHT SHOULDER PAIN/MED DISCUSSION Reason for Visit Aortic stenosis Essential hypertension Hyperlipidemia Paroxysmal atrial fibrillation Presence of stent in coronary artery CKD (chronic kidney disease) stage 3, GFR 30-59 ml/min Essential hypertension Hypothyroidism Type 2 diabetes mellitus CKD (chronic kidney disease) stage 3, GFR 30-59 ml/min Type 2 diabetes mellitus CKD (chronic kidney disease) stage 3, GFR 30-59 ml/min Essential hypertension Hyperlipidemia Polyneuropathy due to type 2 diabetes mellitus Type 2 diabetes mellitus Aortic stenosis Chest pain Paroxysmal atrial fibrillation Presence of stent in coronary artery Sleep concern Smokes cigarettes Bipolar disorder Chronic cough Right shoulder pain Yeast infection Chief Complaint 1 M FU [address] MARCELINO/EKG RIGHT SHOULDER PAIN/MED DISCUSSION 2 WK FU PER Nonrheumatic aortic (valve) stenosis Reason for Visit CKD (chronic kidney disease) stage 3, GFR 30-59 ml/min Type 2 diabetes mellitus CKD (chronic kidney disease) stage 3, GFR 30-59 ml/min Essential hypertension Hyperlipidemia Polyneuropathy due to type 2 diabetes mellitus Type 2 diabetes mellitus Aortic stenosis Chest pain Paroxysmal atrial fibrillation Presence of stent in coronary artery Sleep concern Smokes cigarettes Bipolar disorder Chronic cough Right shoulder pain Yeast infection Aortic stenosis Chest pain Paroxysmal atrial fibrillation Presence of stent in coronary artery Chief Complaint 1 M FU [address] MARCELINO/EKG RIGHT SHOULDER PAIN/MED DISCUSSION 2 WK FU PER Nonrheumatic aortic (valve) stenosis 6 M FU Reason for Visit CKD (chronic kidney disease) stage 3, GFR 30-59 ml/min Type 2 diabetes mellitus CKD (chronic kidney disease) stage 3, GFR 30-59 ml/min Essential hypertension Hyperlipidemia Polyneuropathy due to type 2 diabetes mellitus Type 2 diabetes mellitus Aortic stenosis Chest pain Paroxysmal atrial fibrillation Presence of stent in coronary artery Sleep concern Smokes cigarettes Bipolar disorder Chronic cough Right shoulder pain Yeast infection Aortic stenosis Chest pain Paroxysmal atrial fibrillation Presence of stent in coronary artery Dizziness Atherosclerotic heart disease of [place] coronary artery without angina pectoris Essential hypertension Hypothyroidism Paroxysmal atrial fibrillation Polyneuropathy due to type 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 GFR 30-59 Sleep concern Vaginal itching Bipolar disorder Dysuria Right shoulder pain Quit smoking Chief Complaint [address] MARCELINO/EKG RIGHT SHOULDER PAIN/MED DISCUSSION 2 WK FU PER Nonrheumatic aortic (valve) stenosis 6 M FU fall Reason for Visit CKD (chronic kidney disease) stage 3, GFR 30-59 ml/min Essential hypertension Hyperlipidemia Polyneuropathy due to type 2 diabetes mellitus Type 2 diabetes mellitus Aortic stenosis Chest pain Paroxysmal atrial fibrillation Presence of stent in coronary artery Sleep concern Smokes cigarettes Bipolar disorder Chronic cough Right shoulder pain Yeast infection Aortic stenosis Chest pain Paroxysmal atrial fibrillation Presence of stent in coronary artery Dizziness Atherosclerotic heart disease of [place] coronary artery without angina pectoris Essential hypertension Hypothyroidism Paroxysmal atrial fibrillation Polyneuropathy due to type 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 GFR 30-59 Sleep concern Vaginal itching Bipolar disorder Dysuria Right shoulder pain Quit smoking Chief Complaint [address] MARCELINO/EKG RIGHT SHOULDER PAIN/MED DISCUSSION 2 WK FU PER Nonrheumatic aortic (valve) stenosis 6 M FU fall FALLING / DIZZY Reason for Visit CKD (chronic kidney disease) stage 3, GFR 30-59 ml/min Essential hypertension Hyperlipidemia Polyneuropathy due to type 2 diabetes mellitus Type 2 diabetes mellitus Aortic stenosis Chest pain Paroxysmal atrial fibrillation Presence of stent in coronary artery Sleep concern Smokes cigarettes Bipolar disorder Chronic cough Right shoulder pain Yeast infection Aortic stenosis Chest pain Paroxysmal atrial fibrillation Presence of stent in coronary artery Dizziness Atherosclerotic heart disease of [place] coronary artery without angina pectoris Essential hypertension Hypothyroidism Paroxysmal atrial fibrillation Polyneuropathy due to type 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 GFR 30-59 Sleep concern Vaginal itching Bipolar disorder Dysuria Right shoulder pain Quit smoking Dizziness Fatigue Recurrent falls Chief Complaint Admit Date CP, SYNCOPE April 22, 2024 7 :00am CP, SYNCOPE April 22, 2024 2 :55pm SALVATORE LACTIC ACIDOSIS LEUKOCYTOSIS AND ILE US WITH May 13, 2024 8:01pm SALVATORE LACTIC ACIDOSIS LEUKOCYTOSIS AND ILE US WITH May 14, 2024 7:43am CP May 14, 2024 9:21am SALVATORE LACTIC ACIDOSIS LEUKOCYTOSIS AND ILE US WITH May 14, 2024 1:19pm SALVATORE LACTIC ACIDOSIS LEUKOCYTOSIS AND ILE US WITH May 15, 2024 6:36am SALVATORE LACTIC ACIDOSIS LEUKOCYTOSIS AND ILE US WITH May 15, 2024 2:42pm SALVATORE LACTIC ACIDOSIS LEUKOCYTOSIS AND ILE US WITH May 16, 2024 7:37am SALVATORE LACTIC ACIDOSIS LEUKOCYTOSIS AND ILE US WITH May 16, 2024 10:54am SALVATORE LACTIC ACIDOSIS LEUKOCYTOSIS AND ILE US WITH May 17, 2024 6:48am SALVATORE LACTIC ACIDOSIS LEUKOCYTOSIS AND ILE US WITH May 17, 2024 7:59am SALVATORE LACTIC ACIDOSIS LEUKOCYTOSIS AND ILE US WITH May 18, 2024 6:28am SALVATORE LACTIC ACIDOSIS LEUKOCYTOSIS AND ILE US WITH May 18, 2024 12:20pm CP May 18, 2024 7:29pm SALVATORE LACTIC ACIDOSIS LEUKOCYTOSIS AND ILE US WITH May 19, 2024 6:32am SALVATORE LACTIC ACIDOSIS LEUKOCYTOSIS AND ILE US WITH May 19, 2024 11:46am SALVATORE LACTIC ACIDOSIS LEUKOCYTOSIS AND ILE US WITH May 20, 2024 9:14am SALVATORE LACTIC ACIDOSIS LEUKOCYTOSIS AND ILE US WITH May 20, 2024 2:27pm SALVATORE LACTIC ACIDOSIS LEUKOCYTOSIS AND ILE US WITH May 21, 2024 9:44am SALVATORE LACTIC ACIDOSIS LEUKOCYTOSIS AND ILE US WITH May 21, 2024 10:05am SALVATORE LACTIC ACIDOSIS LEUKOCYTOSIS AND ILE US WITH May 22, 2024 10:08am SALVATORE LACTIC ACIDOSIS LEUKOCYTOSIS AND ILE US WITH May 22, 2024 4:21pm FALLS, SALVATORE June 16, 2024 7 :59pm FALLS, SALVATORE June 17, 2024 5 :41pm FALLS, SALVATORE June 18, 2024 1 1:58am [facility] FU July 24, 2024 11:1 9am Reason for Visit Admit Date Dehydration May 13, 2024 8:01pm Hyponatremia May 13, 2024 8:01pm Adverse drug reaction May 13 8:01pm SALVATORE (acute kidney injury) May 13, 2024 8:01pm Gastroenteritis May 13, 2024 8:01pm Hyperkalemia May 13, 2024 8:01pm Intractable nausea and vomiting May 13, 2024 8:01pm Lactic acidosis May 13, 2024 8:01pm Leukocytosis May 13, 2024 8:01pm Nausea vomiting and diarrhea May 132023 8:01pm Paralytic ileus of small intestine Decem 2023 8:01pm Thrombocytosis May 13, 2024 8:01pm Watery diarrhea May 13, 2024 8:01pm Acute kidney injury June 16, 2024 7 :59pm Chronic anemia June 16, 2024 7 :59pm Recurrent falls June 16, 2024 7 :59pm Anemia July 24, 2024 11:1 9am Dehydration July 24, 2024 11:1 9am Dizziness July 24, 2024 11:1 9am Hyponatremia July 24, 2024 11:1 9am 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 GFR 30-59 July 24, 2024 11:19am Bipolar disorder July 24, 2024 11:1 9am GERD (gastroesophageal reflux disease) M [facility] 2024 11:19am Debility July 24, 2024 11:1 9am Hospital discharge follow-up July 24, 2024 11:19am [id number] kidney injury July 11:19am Paralytic ileus July 24, 2024 11:1 9am Chief Complaint Admit Date CP, SYNCOPE April 22, 2024 7 :00am CP, SYNCOPE April 22, 2024 2 :55pm SALVATORE LACTIC ACIDOSIS LEUKOCYTOSIS AND ILE US WITH May 13, 2024 8:01pm SALVATORE LACTIC ACIDOSIS LEUKOCYTOSIS AND ILE US WITH May 14, 2024 7:43am CP May 14, 2024 9:21am SALVATORE LACTIC ACIDOSIS LEUKOCYTOSIS AND ILE US WITH May 14, 2024 1:19pm SALVATORE LACTIC ACIDOSIS LEUKOCYTOSIS AND ILE US WITH May 15, 2024 6:36am SALVATORE LACTIC ACIDOSIS LEUKOCYTOSIS AND ILE US WITH May 15, 2024 2:42pm SALVATORE LACTIC ACIDOSIS LEUKOCYTOSIS AND ILE US WITH May 16, 2024 7:37am SALVATORE LACTIC ACIDOSIS LEUKOCYTOSIS AND ILE US WITH May 16, 2024 10:54am SALVATORE LACTIC ACIDOSIS LEUKOCYTOSIS AND ILE US WITH May 17, 2024 6:48am SALVATORE LACTIC ACIDOSIS LEUKOCYTOSIS AND ILE US WITH May 17, 2024 7:59am SALVATORE LACTIC ACIDOSIS LEUKOCYTOSIS AND ILE US WITH May 18, 2024 6:28am SALVATORE LACTIC ACIDOSIS LEUKOCYTOSIS AND ILE US WITH May 18, 2024 12:20pm CP May 18, 2024 7:29pm SALVATORE LACTIC ACIDOSIS LEUKOCYTOSIS AND ILE US WITH May 19, 2024 6:32am SALVATORE LACTIC ACIDOSIS LEUKOCYTOSIS AND ILE US WITH May 19, 2024 11:46am SALVATORE LACTIC ACIDOSIS LEUKOCYTOSIS AND ILE US WITH May 20, 2024 9:14am SALVATORE LACTIC ACIDOSIS LEUKOCYTOSIS AND ILE US WITH May 20, 2024 2:27pm SALVATORE LACTIC ACIDOSIS LEUKOCYTOSIS AND ILE US WITH May 21, 2024 9:44am SALVATORE LACTIC ACIDOSIS LEUKOCYTOSIS AND ILE US WITH May 21, 2024 10:05am SALVATORE LACTIC ACIDOSIS LEUKOCYTOSIS AND ILE US WITH May 22, 2024 10:08am SALVATORE LACTIC ACIDOSIS LEUKOCYTOSIS AND ILE US WITH May 22, 2024 4:21pm FALLS, SALVATORE June 16, 2024 7 :59pm FALLS, SALVATORE June 17, 2024 5 :41pm FALLS, SALVATORE June 18, 2024 1 1:58am [facility] July 24, 2024 11:1 9am 125MG FERRLECIT August 07, 2024 12: 43pm Chief Complaint Admit Date SALVATORE LACTIC ACIDOSIS LEUKOCYTOSIS AND ILE US WITH May 13, 2024 8:01pm SALVATORE LACTIC ACIDOSIS LEUKOCYTOSIS AND ILE US WITH May 20, 2024 9:14am SALVATORE LACTIC ACIDOSIS LEUKOCYTOSIS AND ILE US WITH May 20, 2024 2:27pm SALVATORE LACTIC ACIDOSIS LEUKOCYTOSIS AND ILE US WITH May 21, 2024 9:44am SALVATORE LACTIC ACIDOSIS LEUKOCYTOSIS AND ILE US WITH May 21, 2024 10:05am SALVATORE LACTIC ACIDOSIS LEUKOCYTOSIS AND ILE US WITH May 22, 2024 10:08am SALVATORE LACTIC ACIDOSIS LEUKOCYTOSIS AND ILE US WITH May 22, 2024 4:21pm FALLS, SALVATORE June 16, 2024 7 :59pm FALLS, SALVATORE June 17, 2024 5 :41pm FALLS, SALVATORE June 18, 2024 1 1:58am [facility] July 24, 2024 11:1 9am 125MG FERRLECIT August 07, 2024 12: 43pm PSBO, HYPERKALEMIA, HYPONATREMIA, SALVATORE Ap ril 2024 10:19pm Reason for Visit Admit Date Dehydration May 13, 2024 8:01pm Hyponatremia May 13, 2024 8:01pm Adverse drug reaction May 13 8:01pm SALVATORE (acute kidney injury) May 13, 2024 8:01pm Gastroenteritis May 13, 2024 8:01pm Hyperkalemia May 13, 2024 8:01pm Intractable nausea and vomiting May 13, 2024 8:01pm Lactic acidosis May 13, 2024 8:01pm Leukocytosis May 13, 2024 8:01pm Nausea vomiting and diarrhea May 132023 8:01pm Paralytic ileus of small intestine Decem 2023 8:01pm Thrombocytosis May 13, 2024 8:01pm Watery diarrhea May 13, 2024 8:01pm Acute kidney injury June 16, 2024 7 :59pm Chronic anemia June 16, 2024 7 :59pm Recurrent falls June 16, 2024 7 :59pm Anemia July 24, 2024 11:1 9am Dehydration July 24, 2024 11:1 9am Dizziness July 24, 2024 11:1 9am Hyponatremia July 24, 2024 11:1 9am 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 GFR 30-59 July 24, 2024 11:19am Bipolar disorder July 24, 2024 11:1 9am GERD (gastroesophageal reflux disease) M arch 2024 11:19am Debility July 24, 2024 11:1 9am Hospital discharge follow-up July 24, 2024 11:19am [id number] kidney injury July 11:19am Paralytic ileus July 24, 2024 11:1 9am Lactic acidosis September 17, 2024 10: 19pm Chief Complaint FUV in office today from ER for abdominal pain and diarrhea x 4 days, nausea, occasional black stools.FUV in office today for constipation, intermittent diarrhea, nausea. Patient states her solid BM are very hard and are painful, bright red blood on the tissue, patient states stools are dark. Patientstates her Housing Property Manager wated her to ask about Ozempic with her bowel issues. Additional Source Comments INFORMATION SOURCE (unrecogn ized section and content) DATE CREATED AUTHOR 11/15/2017 [facility] DATE CREATED AUTHOR AUTHOR'S ORGANIZ ATION 11/15/2017 [facility] DATE CREATED AUTHOR AUTHOR'S ORGANIZ ATION 03/30/2019 [facility] DATE CREATED AUTHOR AUTHOR'S ORGANIZ ATION 08/09/2019 [facility] DATE CREATED AUTHOR AUTHOR'S ORGANIZ ATION 01/31/2020 [facility] DATE CREATED AUTHOR AUTHOR'S ORGANIZ ATION [facility]/11/2020 [facility] DATE CREATED AUTHOR AUTHOR'S ORGANIZ ATION 09/20/2021 [facility] DATE CREATED AUTHOR AUTHOR'S ORGANIZ ATION 09/24/2021 [facility] DATE CREATED AUTHOR AUTHOR'S ORGANIZ ATION [facility] DATE CREATED AUTHOR AUTHOR'S ORGANIZ ATION 02/21/2022 [facility] DATE CREATED AUTHOR AUTHOR'S ORGANIZ ATION 03/26/2022 [facility] DATE CREATED AUTHOR AUTHOR'S ORGANIZ ATION 08/21/2022 [facility] DATE CREATED AUTHOR AUTHOR'S ORGANIZ ATION 10/23/2024 [facility] Reason for Visit (unrecogniz ed section and content) Reason Comments Other Status Reason Specialty Diagnoses / Procedures Re ferred By Contact Referred To Contact Pending Review Diagnoses Cervicalgia Dorsalgia Paresthesia of both hands Bilateral carpal tunnel syndrome Bilateral foot pain Disorder of bone and cartilage Chronic pain of both shoulders Fibromyalgia Bilateral biceps tendonitis Tendonitis of both rotator cuffs Bilateral elbow joint pain Lateral epicondylitis of both elbows Bilateral medial epicondylitis of elbow joint Bilateral wrist pain Bilateral hand pain Osteoarthritis of both hands, unspecified osteoarthritis type Weakness of both hands Left hip pain Greater trochanteric bursitis of left hip Chronic pain of left knee Osteoarthritis of both feet, unspecified osteoarthritis type Fatigue, unspecified type 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 long-term current use of non-steroidal anti-inflammatories (NSAID) Hypertension, unspecified type Gastroesophageal reflux disease, esophagitis presence not specified Hypothyroidism, unspecified type Type II diabetes mellitus with neurological manifestations Lower abdominal pain Procedures EMG & NERVE CONDUCTION Timur Naranjo, Bassem Mix, DO [address] [facility] [place] [place] [address] Reason Comments Labs Only Reason Comments Itching Patient reports all over itching since Monday. No rash visualized. States was vomiting but is nauseated today. Last episode of vomiting yesterday. Able to eat today but has not taken her medications including blood pressure medications. Reports benadryl at 1400 today did not help with symptoms. Nausea Status Reason Specialty Diagnoses / Procedures Re ferred By Contact Referred To Contact Closed Ultrasound Diagnoses Acute renal failure, unspecified acute renal failure type Procedures US RENAL RETROPERITONEAL Vladimir Landon DO [address] [place] [address] [facility] [address] [place] [phone] Status Reason Specialty Diagnoses / Procedures Referre d By Contact Referred To Contact Closed Ultrasound Diagnoses Acute renal failure, unspecified acute renal failure type Procedures US PELVIS LIMITED Dipesh Vladimir [address] [place] [address] [facility] [address] [place] [phone] Reason Comments Hand Pain B hand numbness and tingling New Patient Status Reason Specialty Diagnoses / Procedures Re ferred By Contact Referred To Contact New Request Orthopaedics Diagnoses Gouty arthropathy DDD (degenerative disc disease), cervical Calcific tendonitis of right shoulder Bilateral calcaneal spurs IgG monoclonal gammopathy Anemia, unspecified type Personal history of kidney stones Patient non adherence Noncompliance 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 Vitamin D deficiency Type II diabetes mellitus with neurological manifestations Hypomagnesemia Ulnar neuropathy at elbow, left Fibromyalgia Carpal tunnel syndrome of right wrist Thoracic degenerative disc disease Scoliosis of thoracic spine, unspecified scoliosis type Primary osteoarthritis, right wrist Primary osteoarthritis of left knee Primary osteoarthritis of both hips Osteoarthritis of lumbar spine, unspecified spinal osteoarthritis complication status Osteoarthritis of both hands, unspecified osteoarthritis type Osteoarthritis of both feet, unspecified osteoarthritis type Osteoarthritis of both acromioclavicular joints Osteoarthritis of cervical spine, unspecified spinal osteoarthritis complication status Lumbar degenerative disc disease Impingement syndrome of both shoulders Timur Naranjo, Bassem Mix DO [address] [place] [phone] Bravo Cote MD [address] [place] [id number] Reason Comments Follow-up Pain Reason Comments Follow-up Pre Op - Right CTS - Sx 06/06/19 Status Reason Specialty Diagnoses / Procedures Referred By Contact Referred To Contact Closed Cardiovascular Medicine Diagnoses Pre-operative clearance Atherosclerosis of [place] coronary artery of [place] heart, angina presence unspecified Old myocardial infarction Mitral valve prolapse Abnormal electrocardiogram Precordial pain Procedures ECHOCARDIOGRAM AL ECHO HEART XTHORACIC,COMPLETE W DOPPLER Sherwin Cali II, MD [address] [place] [phone] [facility] [address] [place] [phone] Status Reason Specialty Diagnoses / Procedures Referred By Contact Referred To Contact Closed Cardiovascular Medicine Diagnoses Abnormal electrocardiogram Atrial premature contractions Palpitations Procedures HOLTER MONITOR - 24 HOUR Sherwin Cali II, MD [address] [place] [address] [facility] [address] [place] [id number] Status Reason Specialty Diagnoses / Procedures Referre d By Contact Referred To Contact Closed Ultrasound Diagnoses Intermittent claudication Pre-operative clearance Atherosclerosis of [place] coronary artery of [place] heart, angina presence unspecified Procedures US DOPPLER ARTERIAL LEGS BILATERAL Sherwin Cali II, MD [address] [place] [address] [facility] [address] [place] [phone] Status Reason Specialty Diagnoses / Procedures Re ferred By Contact Referred To Contact Closed Cardiovascular Medicine Diagnoses Pre-operative clearance Atherosclerosis of [place] coronary artery of [place] heart, angina presence unspecified Old myocardial infarction Abnormal electrocardiogram Precordial pain Procedures ECHOCARDIOGRAM PHARMACOLOGICAL STRESS TEST AL ECHO TTHRC R-T 2D W/WO M-MODE REST&STRS CONT ECG AL DOPPLER ECHO HEART,LIMITED,F/U AL DOPPLER COLOR FLOW VELOCITY MAP Sherwin Cali II, MD [address] [place] [id number] [facility] [address] [place] [id number] Reason Comments Pain Follow-up Reason Comments Follow-up Pre-op right CTR Status Reason Specialty Diagnoses / Procedures Referre d By Contact Referred To Contact Diagnoses Carpal tunnel syndrome on right Carpal tunnel syndrome on right [G56.01] Procedures AL REVISE MEDIAN N/CARPAL TUNNEL SURG DECOMPRESSION TRANSPOSITION MEDIAN NERVE Bravo Cote MD [address] [place] [id number] Reason Comments Post Op Visit OR date 01/30/2020. R t CTR Reason Comments Fatigue Patient reports feel ing extremely tired since yesterday, also states vision was blurred yesterday and hands shaking. Neuro checks negative. Reason Comments Pain Status Reason Specialty Diagnoses / Procedures Re ferred By Contact Referred To Contact New Request Sports Ortho and Primary Care Sports Diagnoses Gouty arthropathy DDD (degenerative disc disease), cervical Calcific tendonitis of right shoulder Bilateral calcaneal spurs IgG monoclonal gammopathy Anemia, unspecified type Personal history of kidney stones Patient non adherence Noncompliance 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 Vitamin D deficiency Type II diabetes mellitus with neurological manifestations Hypomagnesemia Ulnar neuropathy at elbow, left Fibromyalgia Carpal tunnel syndrome of right wrist Thoracic degenerative disc disease Scoliosis of thoracic spine, unspecified scoliosis type Primary osteoarthritis, right wrist Primary osteoarthritis of left knee Primary osteoarthritis of both hips Osteoarthritis of lumbar spine, unspecified spinal osteoarthritis complication status Osteoarthritis of both hands, unspecified osteoarthritis type Osteoarthritis of both feet, unspecified osteoarthritis type Osteoarthritis of both acromioclavicular joints Osteoarthritis of cervical spine, unspecified spinal osteoarthritis complication status Lumbar degenerative disc disease Impingement syndrome of both shoulders Timur Naranjo, Bassem Mix, DO [address] [place] [phone] Lele Murray, DO [address] [place] [phone] Reason Comments Joint Pain Patient is an add on , hasnt been seen in over a year, states that her medication no longer works. Patient states that she is in a lot of pain. Specialty Diagnoses / Procedures Referred By Jos boland Referred To Contact Cardiology Diagnoses Coronary artery disease involving [place] coronary artery, unspecified whether angina present, unspecified whether [place] or transplanted heart Angina pectoris (HCC) Pre-operative cardiovascular examination Procedures ECG 12 Lead Parail, Jessica Chan MD [address] [facility] [address] [place] [address] Referral ID Status Reason Start Date Expiration Date Visits Re quested Visits Authorized [id number] Closed 08/27/2021 08/27/2022 1 1 Bravo Cote MD - 01/30/2020 9:00 AM Marzena Gtz PA-C - 01/21/2020 1:40 PM EDT H&P Notes (unrecognized sect ion and content) I have examined the patient and reviewed the previous H&P and there are no changes. Bravo Cote MD 01/30/2020 9:00 AM 01/21/20 HPI: Sara presents to the office today in follow-up of her right carpal tunnel syndrome. She was scheduled for surgery and had a canceled because of hypertension issues. At this point it has been controlled and she has been cleared by Dr. Cali to proceed with surgery. Her hand continues to bother her primarily at nighttime. She has tried a splint without relief. Past Medical History: Diagnosis Date Diabetes mellitus Essential hypertension, benign Hepatitis reports 50 years ago had from food Hyperlipidemia CO (myocardial infarction) reports small over ten years ago Mitral valve prolapse Vertigo Past Surgical History: Procedure Laterality Date CHOLECYSTECTOMY CYSTECTOMY HYSTERECTOMY TOTAL ABDOMINAL OPEN (MICHAEL) SHOULDER SURGERY Right 2001??? Current Outpatient Medications: allopurinol 100 MG Tab tablet, Take 100 mg by mouth daily., Disp: , Rfl: atorvastatin 20 MG tablet, Take 20 mg by mouth daily., Disp: , Rfl: BIOTIN PO, Take by mouth 2 times daily., Disp: , Rfl: COLESTIPOL HCL PO, Take 2 tablets by mouth 2 times daily., Disp: , Rfl: divalproex [address] tablet EC/DR, Take 125 mg by mouth 2 times daily. , Disp: , Rfl: Elastic Bandages & Supports (WRIST SPLINT ELASTIC/LARGE-XL) Misc, B/L wrist splints for B/L CTS, Disp: 2 Each, Rfl: 11 gabapentin 100 MG Cap capsule, Take 100 mg by mouth 3 times daily. 2 tabs TID, Disp: , Rfl: GLUCOSAMINE-CHONDROITIN PO, Take by mouth 2 times daily., Disp: , Rfl: Homeopathic Products (ALLERGY MEDICINE PO), Take by mouth daily as needed., Disp: , Rfl: Insulin Glargine (LANTUS SOLOSTAR SC), Inject 15 Units under the skin., Disp: , Rfl: levothyroxine 50 MCG Tab tablet, Take 50 mcg by mouth daily., Disp: , Rfl: losartan 100 MG tablet, Take 1 tablet by mouth daily., Disp: 90 tablet, Rfl: 2 Magnesium Oxide -Mg Supplement 250 MG Tab, 1 po q day, Disp: , Rfl: metformin 1000 MG Tab tablet, Take 1,000 mg by mouth 2 times daily., Disp: , Rfl: metoprolol 50 MG tab regular release, Take 1 tablet by mouth 2 times daily., Disp: 180 tablet, Rfl: 1 POTASSIUM PO, Take by mouth daily. OTC, Disp: , Rfl: TiZANidine-Liniment (TIZANIDINE COMFORT PAC) 4 MG Misc, by Combination route., Disp: , Rfl: trazodone 150 MG Tab, Take 150 mg by mouth every evening at 6 PM., Disp: , Rfl: triamterene-hydrochlorothiazide 37.5-25 MG tablet, Take 1 tablet by mouth daily., Disp: , Rfl: Vitamin D-Vitamin K (DOSOQUIN) 5500-200 UNIT-MCG Tab, 1 po q day, Disp: 30 tablet, Rfl: 11 pantoprazole Sodium 40 MG Pack, Take 1 packet by mouth every morning before breakfast., Disp: 30 packet, Rfl: 0 Allergies Allergen Reactions Tomato Social History Socioeconomic History Marital status: Spouse name: Not on file Number of children: Not on file Years of education: Not on file Highest education level: Not on file Occupational History Not on file Social Needs Financial resource strain: Not on file Food insecurity Worry: Not on file Inability: Not on file Transportation needs Medical: Not on file Non-medical: Not on file Tobacco Use Smoking status: Current Every Day Smoker Types: Cigarettes Smokeless tobacco: Never Used Substance and Sexual Activity Alcohol use: Not Currently Drug use: Never Sexual activity: Not on file Lifestyle Physical activity Days per week: Not on file Minutes per session: Not on file Stress: Not on file Relationships Social connections Talks on phone: Not on file Gets together: Not on file Attends restorationism service: Not on file Active member of club or organization: Not on file Attends meetings of clubs or organizations: Not on file Relationship status: Not on file Intimate partner violence Fear of current or ex partner: Not on file Emotionally abused: Not on file Physically abused: Not on file Forced sexual activity: Not on file Other Topics Concern Not on file Social History Narrative Not on file Family History Problem Relation Age of Onset Hypertension Mother Other - Specify Mother Diabetes Father Hypertension Father Other - Specify Father Heart Disease - Other Maternal Grandmother Heart Disease - Other Paternal Grandmother Review of Systems Constitutional: Negative for chills and fever. HENT: Negative for hearing loss. Eyes: Negative for visual disturbance. Respiratory: Negative for shortness of breath. Cardiovascular: Negative for chest pain. Gastrointestinal: Negative for abdominal pain and blood in stool. Endocrine: Negative for polydipsia. Genitourinary: Negative for hematuria. Musculoskeletal: Negative for arthralgias and myalgias. Neurological: Negative for dizziness, seizures and numbness. Hematological: Does not bruise/bleed easily. Psychiatric/Behavioral: Negative for dysphoric mood. Physical Examination: Visit Vitals Temperature 98 F (36.7 C) Height 1.499 m (4' 11) Weight 60.3 kg (133 lb) Body Mass Index 26.86 kg/m A&O x3 Lungs: Clear to auscultation bilaterally. No wheezes rales or rhonchi appreciated. Heart: Regular rate and rhythm. No murmur noted. Abdomen: Normoactive bowel sounds. Extremity: Exam of her right hand demonstrates a negative Tinel's positive Phalen's. She is able make a composite fist. She has brisk capillary refill and skin is warm and dry. Two point Discrimination (mm): 1- Thumb 2- Index 3- Long 4- Ring 5- Small Right 7 7 7 7 7 Left N/a Diagnostic Studies: Nerve conduction study test previously done does demonstrate right carpal tunnel syndrome. Assessment: 1. Carpal tunnel syndrome, right 2. Pre-op testing Plan: I have discussed the options with her. She does want to proceed with a right carpal tunnel release. Risk and benefits have been discussed, she understands and does wish to proceed. She has received clearance per Dr. Cali. Risk of denis COVID19 during the lana-operative period explained to patient today. The patient verbalized understanding and acceptance of these risks as well as the quarantine time between testing and surgery. The patient understands if the test is positive or symptoms develop prior to surgery the surgery will be cancelled. documented in this encounter Jennifer Peres RN - 01/30/2020 10:07 AM Jennifer Diego RN - 01/30/2020 9:55 AM Kristi Buckley RN - 01/30/2020 9:49 AM Kristi Buckley RN - 01/30/2020 9:36 AM EDT Nursing Notes (unrecognized section and content) Discharge instructions reviewed with pt and family member. Both given verbal acknowledgement of instructions reviewed. Paper pain script given at this time. All belongings returned to pt. Pt denies further needs at this time. Pt is stable. Vitals WNL. Call light with in reach. Will continue to monitor. Gave pt cookies and water at this time as requested. Pt tolerating well. Pt stable. Vitals WNL. Family at bedside. Call light with in reach bed in low position. Will continue to monitor. RU extremity elevated with ICE pack in place. Transferred to PACU via bed with this nurse and Aiyana CODY. Bedside report given to Samra WASHBURN Fire risk level of 1 determined during Time Out. ? application site is dry prior to draping and use of surgical equipment. ? No pooling of prep solution around patient or surgical area. ? All prep materials have been removed from the OR prior to draping and use of surgical devices. Monitored by: Samra BROOKS OR room temp: 62.1F OR room humidity: 55% documented in this encounter Op Note - Bravo Cote MD - 01/30/2020 9:47 AM EDTBrief Op Note - Bravo Cote MD - 01/30/2020 9:47 AM EDT Miscellaneous Notes (unrecog nized section and content) SURGEON: Adrián Cote M.D. IMPREGNATOR HELPER: None. PREOPERATIVE DIAGNOSIS: Right carpal tunnel syndrome. POSTOPERATIVE DIAGNOSIS: Right carpal tunnel syndrome. PROCEDURE: Right carpal tunnel release using WeixinhaiI safeguard system. CPT 54242 ANESTHESIA: Local with sedation. ESTIMATED BLOOD LOSS: Minimal. COMPLICATIONS: None. DISPOSITION: Taken to the recovery room stable. INDICATIONS: Leti Dela Cruz is 64 y.o. years old. Leti presented to my office with symptoms of Carpal tunnel syndrome on right [G56.01] and has failed non operative management. The risk and benefits of the procedure have been discussed in detail as well as non surgical options and Leti does wish to proceed. OPERATIVE TECHNIQUE: After properly identifying the patient, the patient extremity, and obtaining informed consent, the patient is taken to the operating room and placed on the table in the supine position where IV sedation is induced. Once induced, 10 cc of one percent Lidocaine and 10 cc of .5 percent marcaine are infiltrated in the vicinity of the carpal tunnel. The patient has a well padded forearm tourniquet applied; and is prepped and draped in a standard surgical fashion. Once prepped and draped, an Esmarch bandage is used to exsanguinate the limb and tourniquet inflated to 250 mm of mercury. Once inflated, a 2 cm incision is carried out through skin and subcutaneous tissue. The subcutaneous fat is excised and the superficial palmar fascia is identified. This is identified and 2 Yolanda retractors are placed into the wound. Once placed, the transverse carpal ligament is identified, it is inspected for a transligamentous motor branch and none are identified. Blunt dissection is carried out over the distal most aspect of the transverse carpal ligament and subsequently this is incised. Once incised the median nerve is visualized, once visualized the KMI safeguard is placed between the median nerve and the transverse carpal ligament. It is passed from proximal to distal. It is felt to pass approximately 1 cm distal to the wrist crease and on the ulnar side of palmaris longus. Once passed, the blade is ran along the safeguard track and the transverse carpal ligament is released. Once released, both the KMI safeguard and blade are removed. The median nerve is inspected. There is noted to be evidence of compression. The compression is completely released from 1 cm proximal to the wrist crease to the superficial arch. There is no evidence of iatrogenic injury. At this point in time, the wound is copiously irrigated. The skin is closed with two interrupted 4-0 Nylon sutures. A circumferential sterile dressing is applied and the tourniquet is deflated. The patient is transported to the recovery room in stable condition having tolerated the procedure well. DATE: 01/30/2020 Patient: Leti Dela Cruz Pre-Op Dx: Carpal tunnel syndrome on right [G56.01] Post-Op Dx: Carpal tunnel syndrome on right [G56.01] Procedure: Procedure(s) (LRB): DECOMPRESSION TRANSPOSITION MEDIAN NERVE RIGHT (Right) Surgeon: Surgeon(s) and Role: * Bravo Cote MD - Primary Programmer Or Analyst: * No surgical staff found * ANESTHESIA TYPE: * No anesthesia type entered * INTRAVENOUS FLUIDS: Per anesthesia record ESTIMATED BLOOD LOSS: Per anesthesia record Specimens: * No specimens in log * Implants: * No implants in log * COMPLICATIONS: * No complications entered in OR log * DISPOSITION: To the recovery room in stable condition documented in this encounter <item><item> Privacy Markings (unrecogniz ed section and content) Section Author: Vandana Cotto PROHIBITION ON REDISCLOSURE OF CONFIDENTIAL INFORMATION This notice accompanies a disclosure of information concerning a client made to you with the consent of such client. Section Author: Vandana Cotto PROHIBITION ON REDISCLOSURE OF CONFIDENTIAL INFORMATION This notice accompanies a disclosure of information concerning a client made to you with the consent of such client. Care Teams (unrecognized sec tion and content) Team Status: Active Member Role Status Dates Devi Delgado NP, NEURODIAGNOSTIC TECHNICIAN-C Primary Care Provider Active Team Status: Inactive Member Role Status Dates Dr. Pat Bennett MD Referring Provider Active Devi Delgado NEURODIAGNOSTIC TECHNICIAN, NEURODIAGNOSTIC TECHNICIAN-C Primary Care Provider, Attending P rovider Active Team Status: Inactive Member Role Status Dates Devi Delgado NEURODIAGNOSTIC TECHNICIAN, NEURODIAGNOSTIC TECHNICIAN-C Primary Care Provider, Referring P rovider Active Dr. Seven Garcia MD Attending Provider Active Team Status: Inactive Member Role Status Dates Dvei Delgado NEURODIAGNOSTIC TECHNICIAN, NEURODIAGNOSTIC TECHNICIAN-C Primary Care Provider Active Dr. Jozef Brar DO Attending Provider, Emergency Provider Active Team Status: Inactive Member Role Status Dates Devi Delgado NEURODIAGNOSTIC TECHNICIAN, NEURODIAGNOSTIC TECHNICIAN-C Primary Care Provider Active Dr. Denise Uribe MD Attending Provider, Referring Provider Active Team Status: Inactive Member Role Status Dates Devi Danny NEURODIAGNOSTIC TECHNICIAN, NEURODIAGNOSTIC TECHNICIAN-C Primary Care Provide r, Attending Provider, Referring Provider Active Registration Manager Relationship Specialty Start Date End Date No, Physician [facility] PCP - General 02/24/21 Registration Manager Relationship Specialty Start Date End Date No, Physician [facility] PCP - General 02/24/21 Registration Manager Relationship Specialty Start Date End Date No, Physician [facility] PCP - General 02/24/21 Registration Manager Relationship Specialty Start Date End Date No, Physician [facility] PCP - General 02/24/21 Team Status: Active Member Role Status Dates Dr. Pat Bennett MD Primary Care Provider Active Team Status: Inactive Member Role Status Dates Dr. Pat Bennett MD Primary Care Provider, Attendi Provider Active Team Status: Inactive Member Role Status Dates Dr. Pat Bennett MD Primary Care Provider Active Dr. Leti Marie DO Attending Provider Active Team Status: Inactive Member Role Status Dates Dr. Pat Bennett MD Primary Care Provider Active Dr. Robby Kirkpatrick MD Attending Provider, Emergency Provider Active Team Status: Active Member Role Status Dates Dr. Pat Bennett MD Primary Care Provider Active Dr. Sanju Hernandez MD Emergency Provider Active Dr. Daljit Mg MD Admit Provider, Attending Pro vider Active Team Status: Active Member Role Status Dates Dr. Pat Bennett MD Primary Care Provider Active Dr. Sanju Hernandez MD Emergency Provider Active Dr. Daljit Mg MD Admit Provider, Other Provide r Active Dr. Dior Alva MD Other Provider Active Dr. Carrillo Buckley DO Attending Provider, Other Provid er Active Team Status: Active Member Role Status Dates Dr. Pat Bennett MD Primary Care Provider Active Dr. Sanju Hernandez MD Emergency Provider Active Dr. Daljit Mg MD Admit Provider, Other Provide r Active Dr. Dior Alva MD Attending Provider, Other Pro vider Active Dr. Carrillo Buckley DO Other Provider Active Team Status: Active Member Role Status Dates Dr. Pat Bennett MD Primary Care Provider Active Dr. Sanju Hernandez MD Emergency Provider Active Dr. Daljit Mg MD Admit Provider, Other Provide r Active Dr. Dior Alva MD Other Provider Active Dr. Carrillo Buckley DO Other Provider Active Dr. Franck Butler MD Attending Provider Active Team Status: Active Member Role Status Dates Dr. Pat Bennett MD Primary Care Provider Active Dr. Sanju Hernandez MD Emergency Provider Active Dr. Daljit Mg MD Admit Provider, Other Provide r Active Dr. Dior Alva MD Other Provider Active Dr. Bassem Schwartz MD Attending Provider, Other Provid er Active Dr. Carrillo Buckley DO Other Provider Active Team Status: Inactive Member Role Status Dates Dr. Pat Bennett MD Primary Care Provider Active Dr. Sanju Hernandez MD Emergency Provider Active Dr. Daljit Mg MD Admit Provider, Other Provide r Active Dr. Dior Alva MD Other Provider Active Dr. Bassem Schwartz MD Attending Provider Active Dr. Carrillo Buclkey DO Other Provider Active Team Status: Active Member Role Status Dates Dr. Pat Bennett MD Primary Care Provider Active Dr. Sanju Hernandez MD Emergency Provider Active Dr. Daljit Mg MD Admit Provider, Other Provide r Active Dr. Dior Alva MD Attending Provider, Other Pro vider Active Dr. Carrillo Buckley DO Other Provider Active Dr. Bassem Schwartz MD Referring Provider Active Team Status: Inactive Member Role Status Dates Dr. Pat Bennett MD Primary Care Provider, Referri ng Provider Active Devi Delgado NEURODIAGNOSTIC TECHNICIAN, NEURODIAGNOSTIC TECHNICIAN-C Attending Provider Active Team Status: Inactive Member Role Status Dates Dr. Pat Bennett MD Primary Care Provider Active Dr. Leti Marie DO Attending Provider, Referring P zeyad Active Team Status: Inactive Member Role Status Dates Devi Delgado NP, NEURODIAGNOSTIC TECHNICIAN-C Primary Care Provider Active Dr. Jozef Brar DO Emergency Provider Active Team Status: Active Member Role Status Dates Dr. Denise Uribe MD Primary Care Provider Active Team Status: Inactive Member Role Status Dates Devi Delgado NEURODIAGNOSTIC TECHNICIAN, NEURODIAGNOSTIC TECHNICIAN-C Referring Provider Active Dr. Seven Garcia MD Attending Provider Active Dr. Denise Uribe MD Primary Care Provider Active Team Status: Inactive Member Role Status Dates Devi Delgado NEURODIAGNOSTIC TECHNICIAN, NEURODIAGNOSTIC TECHNICIAN-C Referring Provider Active Humaira MUNOZ, PA Attending Provider Active Dr. Denise Uribe MD Primary Care Provider Active Team Status: Inactive Member Role Status Dates Devi Delgado NEURODIAGNOSTIC TECHNICIAN, NEURODIAGNOSTIC TECHNICIAN-C Primary Care Provider, Referring P rovider Active Dr. Denise Uribe MD Attending Provider Active Team Status: Inactive Member Role Status Dates Devi Delgado NEURODIAGNOSTIC TECHNICIAN, NEURODIAGNOSTIC TECHNICIAN-C Referring Provider Active Dr. Denise Uribe MD Primary Care Provider, Attendi ng Provider Active Team Status: Inactive Member Role Status Dates Dr. Denise Uribe MD Primary Care Provider, Attendi ng Provider Active Team Status: Inactive Member Role Status Dates Dr. Denise Uribe MD Primary Care Pro vider, Attending Provider, Referring Provider Active Team Status: Inactive Member Role Status Dates Dr. Denise Uribe MD Primary Care Provider, Referri ng Provider Active Dr. Seven Garcia MD Attending Provider Active Team Status: Inactive Member Role Status Dates Dr. Denise Uribe MD Primary Care Provider, Referri ng Provider Active Dr. Jb Marcelino MD Attending Provider Active Team Status: Inactive Member Role Status Dates Dr. Denise Uribe MD Primary Care Provider, Referri ng Provider Active Humaira Bae PA, PA Attending Provider Active Team Status: Active Member Role Status Dates Dr. Denise Uribe MD Primary Care Provider Active Dr. Hernando Colón MD Attending Provider Active Team Status: Inactive Member Role Status Dates Dr. Denise Uribe MD Primary Care Provider Active Dr. Jb Marcelino MD Attending Provider, Referring Provider Active Team Status: Inactive Member Role Status Dates Dr. Denise Uribe MD Primary Care Provider Active Dr. Tobi Riojas MD Emergency Provider Active Team Status: Inactive Member Role Status Dates Dr. Denise Uribe MD Primary Care Provider Active Dr. Tobi Riojas MD Attending Provider, Emergency Provi joy Active Team Status: Inactive Member Role Status Dates Dr. Denise Uribe MD Primary Care Provider Active Start: April 22, 2024 End: April 22, 2024 Humaiar MUNOZ PA Attending Provider Active Start: April 22, 2024 End: April 22, 2024 Humaira MUNOZ PA Referring Provider Active Start: April 22, 2024 End: April 22, 2024 Team Status: Active Member Role Status Dates Dr. Denise Uribe MD Primary Care Provider Active Start: April 22, 2024 Dr. Carrillo Handley MD Attending Provider Active S tart: April 22, 2024 Humaira MUNOZ PA Referring Provider Active Start: April 22, 2024 Team Status: Active Member Role Status Dates Dr. Denise Uribe MD Primary Care Provider Active Start: April 22, 2024 Humaira MUNOZ PA Referring Provider Active Start: April 22, 2024 Humaira MUNOZ PA Other Provider Active Start: April 22, 2024 Dr. Mel Beaver MD Attending Provider Activ e Start: April 22, 2024 Team Status: Inactive Member Role Status Dates Dr. Denise Uribe MD Primary Care Provider Active Start: May 13, 2024 End: May 22, 2024 Dr. Tru Mayer DO Emergency Provider Activ e Start: May 13, 2024 End: May 22, 2024 Dr. Bassem Diamond DO Admit Provider Active Start: May 13, 2024 End: May 22, 2024 Dr. Bassem Diamond DO Other Provider Active Start: May 13, 2024 End: May 22, 2024 Dr. Davie Clayton MD Other Provider Active St art: May 13, 2024 End: May 22, 2024 Dr. Harry Iniguez MD Attending Provider Active Start: May 13, 2024 End: May 22, 2024 Dr. Jailyn Wiggins MD Other Provider Active St art: May 13, 2024 End: May 22, 2024 Team Status: Active Member Role Status Dates Dr. Denise Uribe MD Primary Care Provider Active Start: May 14, 2024 Dr. Tru Mayer DO Emergency Provider Activ e Start: May 14, 2024 Dr. Bassem Diamond DO Admit Provider Active Start: May 14, 2024 Dr. Bassem Diamond DO Other Provider Active Start: May 14, 2024 Dr. Jailyn Wiggins MD Attending Provider Active Start: May 14, 2024 Dr. Jailyn Wiggins MD Other Provider Active St art: May 14, 2024 Dr. Davie Clayton MD Other Provider Active St art: May 14, 2024 Team Status: Active Member Role Status Dates Dr. Denise Uribe MD Primary Care Provider Active Start: May 14, 2024 End: May 14, 2024 Dr. Hernando Colón MD Attending Provider Active S tart: May 14, 2024 End: May 14, 2024 Dr. Bassem Diamond DO Referring Provider Active Start: May 14, 2024 End: May 14, 2024 Team Status: Active Member Role Status Dates Dr. Denise Uribe MD Primary Care Provider Active Start: May 14, 2024 Dr. Tru Mayer DO Emergency Provider Activ e Start: May 14, 2024 Dr. Bassem Diamond DO Admit Provider Active Start: May 14, 2024 Dr. Bassem Diamond DO Other Provider Active Start: May 14, 2024 Dr. Jailyn Wiggins MD Other Provider Active St art: May 14, 2024 Dr. Davie Clayton MD Attending Provider Active Start: May 14, 2024 Dr. Davie Clayton MD Other Provider Active St art: May 14, 2024 Dr. Harry Iniguez MD Referring Provider Active Start: May 14, 2024 Team Status: Active Member Role Status Dates Dr. Denise Uribe MD Primary Care Provider Active Start: May 15, 2024 Dr. Tru Mayer DO Emergency Provider Activ e Start: May 15, 2024 Dr. Bassem Diamond DO Admit Provider Active Start: May 15, 2024 Dr. Bassem Diamond DO Other Provider Active Start: May 15, 2024 Dr. Jailyn Wiggins MD Attending Provider Active Start: May 15, 2024 Dr. Jailyn Wiggins MD Other Provider Active St art: May 15, 2024 Dr. Davie Clayton MD Other Provider Active St art: May 15, 2024 Team Status: Active Member Role Status Dates Dr. Denise Uribe MD Primary Care Provider Active Start: May 15, 2024 Dr. Tru Mayer , DO Emergency Provider Activ e Start: May 15, 2024 Dr. Bassem Diamond , DO Admit Provider Active Start: May 15, 2024 Dr. Bassem Diamond , DO Other Provider Active Start: May 15, 2024 Dr. Jailyn Wiggins MD Other Provider Active St art: May 15, 2024 Dr. Davie Clayton MD Attending Provider Active Start: May 15, 2024 Dr. Davie Clayton MD Other Provider Active St art: May 15, 2024 Team Status: Active Member Role Status Dates Dr. Denise Uribe MD Primary Care Provider Active Start: May 16, 2024 Dr. Tru Mayer DO Emergency Provider Activ e Start: May 16, 2024 Dr. Bassem Diamond , DO Admit Provider Active Start: May 16, 2024 Dr. Bassem Diamond , DO Other Provider Active Start: May 16, 2024 Dr. Jailyn Wiggins MD Attending Provider Active Start: May 16, 2024 Dr. Jailyn Wiggins MD Other Provider Active St art: May 16, 2024 Dr. Davie Clayton MD Other Provider Active St art: May 16, 2024 Team Status: Active Member Role Status Dates Dr. Denise Uribe MD Primary Care Provider Active Start: May 16, 2024 Dr. Tru Mayer DO Emergency Provider Activ e Start: May 16, 2024 Dr. Bassem Diamond , DO Admit Provider Active Start: May 16, 2024 Dr. Bassem Diamond , DO Other Provider Active Start: May 16, 2024 Dr. Jailyn Wiggins MD Other Provider Active St art: May 16, 2024 Dr. Davie Clayton MD Attending Provider Active Start: May 16, 2024 Dr. Davie Clayton MD Other Provider Active St art: May 16, 2024 Team Status: Active Member Role Status Dates Dr. Denise Uribe MD Primary Care Provider Active Start: May 17, 2024 Dr. Tru Mayer , DO Emergency Provider Activ e Start: May 17, 2024 Dr. Bassem Diamond , DO Admit Provider Active Start: May 17, 2024 Dr. Bassem Diamond , DO Other Provider Active Start: May 17, 2024 Dr. Jailyn Wiggins MD Attending Provider Active Start: May 17, 2024 Dr. Jailyn Wiggins MD Other Provider Active St art: May 17, 2024 Dr. Davie Clayton MD Other Provider Active St art: May 17, 2024 Team Status: Active Member Role Status Dates Dr. Denise Uribe MD Primary Care Provider Active Start: May 17, 2024 Dr. Tru Mayer , DO Emergency Provider Activ e Start: May 17, 2024 Dr. Bassem Diamond , DO Admit Provider Active Start: May 17, 2024 Dr. Bassem Diamond , DO Other Provider Active Start: May 17, 2024 Dr. Jailyn Wiggins MD Other Provider Active St art: May 17, 2024 Dr. Davie Clayton MD Other Provider Active St art: May 17, 2024 Dr. Jb Jackson MD Attending Provider Active Start: May 17, 2024 Team Status: Active Member Role Status Dates Dr. Denise Uribe MD Primary Care Provider Active Start: May 18, 2024 Dr. Tru Mayer DO Emergency Provider Activ e Start: May 18, 2024 Dr. Bassem Diamond , DO Admit Provider Active Start: May 18, 2024 Dr. Bassem Diamond , DO Other Provider Active Start: May 18, 2024 Dr. Jailyn Wiggins MD Attending Provider Active Start: May 18, 2024 Dr. Jailyn Wiggins MD Other Provider Active St art: May 18, 2024 Dr. Davie Clayton MD Other Provider Active St art: May 18, 2024 Team Status: Active Member Role Status Dates Dr. Denise Uribe MD Primary Care Provider Active Start: May 18, 2024 Dr. Tru Mayer , DO Emergency Provider Activ e Start: May 18, 2024 Dr. Bassem Diamond , DO Admit Provider Active Start: May 18, 2024 Dr. Bassem Diamond DO Other Provider Active Start: May 18, 2024 Dr. Jailyn Wiggins MD Other Provider Active St art: May 18, 2024 Dr. Davie Clayton MD Other Provider Active St art: May 18, 2024 Dr. Jb Jackson MD Attending Provider Active Start: May 18, 2024 Team Status: Active Member Role Status Dates Dr. Denise Uribe MD Primary Care Provider Active Start: May 18, 2024 End: May 18, 2024 Dr. Hernando Colón MD Attending Provider Active S tart: May 18, 2024 End: May 18, 2024 Dr. Bassem Diamond DO Referring Provider Active Start: May 18, 2024 End: May 18, 2024 Team Status: Active Member Role Status Dates Dr. Denise Uribe MD Primary Care Provider Active Start: May 19, 2024 Dr. Tru Mayer DO Emergency Provider Activ e Start: May 19, 2024 Dr. Bassem Diamond DO Admit Provider Active Start: May 19, 2024 Dr. Bassem Diamond DO Other Provider Active Start: May 19, 2024 Dr. Jailyn Wiggins MD Attending Provider Active Start: May 19, 2024 Dr. Jailyn Wiggins MD Other Provider Active St art: May 19, 2024 Dr. Davie Clayton MD Other Provider Active St art: May 19, 2024 Team Status: Active Member Role Status Dates Dr. Denise Uribe MD Primary Care Provider Active Start: May 19, 2024 Dr. Tru Mayer DO Emergency Provider Activ e Start: May 19, 2024 Dr. Bassem Diamond DO Admit Provider Active Start: May 19, 2024 Dr. Bassem Diamond DO Other Provider Active Start: May 19, 2024 Dr. Jailyn Wiggins MD Other Provider Active St art: May 19, 2024 Dr. Davie Clayton MD Other Provider Active St art: May 19, 2024 Dr. Jb Jackson MD Attending Provider Active Start: May 19, 2024 Team Status: Active Member Role Status Dates Dr. Denise Uribe MD Primary Care Provider Active Start: May 20, 2024 Dr. Tru Mayer , DO Emergency Provider Activ e Start: May 20, 2024 Dr. Bassem Diamond , DO Admit Provider Active Start: May 20, 2024 Dr. Bassem Diamond DO Other Provider Active Start: May 20, 2024 Dr. Davie Clayton MD Other Provider Active St art: May 20, 2024 Dr. Harry Iniguez MD Other Provider Active Start: May 20, 2024 Dr. Jailyn Wiggins MD Other Provider Active St art: May 20, 2024 Dr. Jb Jackson MD Attending Provider Active Start: May 20, 2024 Team Status: Active Member Role Status Dates Dr. Denise Uribe MD Primary Care Provider Active Start: May 20, 2024 Dr. Tru Mayer DO Emergency Provider Activ e Start: May 20, 2024 Dr. Bassem Diamond , DO Admit Provider Active Start: May 20, 2024 Dr. Bassem Diamond , DO Other Provider Active Start: May 20, 2024 Dr. Davie Clayton MD Other Provider Active St art: May 20, 2024 Dr. Harry Iniguez MD Attending Provider Active Start: May 20, 2024 Dr. Harry Iniguez MD Other Provider Active Start: May 20, 2024 Dr. Jailyn Wiggins MD Other Provider Active St art: May 20, 2024 Team Status: Active Member Role Status Dates Dr. Denise Uribe MD Primary Care Provider Active Start: May 21, 2024 Dr. Tru Mayer DO Emergency Provider Activ e Start: May 21, 2024 Dr. Bassem Diamond , DO Admit Provider Active Start: May 21, 2024 Dr. Bassem Diamond DO Other Provider Active Start: May 21, 2024 Dr. Davie Clayton MD Other Provider Active St art: May 21, 2024 Dr. Harry Iniguez MD Other Provider Active Start: May 21, 2024 Dr. Jailyn Wiggins MD Other Provider Active St art: May 21, 2024 Dr. Jb Jackson MD Attending Provider Active Start: May 21, 2024 Team Status: Active Member Role Status Dates Dr. Denise Uribe MD Primary Care Provider Active Start: May 21, 2024 Dr. Tru Mayer , DO Emergency Provider Activ e Start: May 21, 2024 Dr. Bassem Diamond , DO Admit Provider Active Start: May 21, 2024 Dr. Bassem Diamond , DO Other Provider Active Start: May 21, 2024 Dr. Davie Clayton MD Other Provider Active St art: May 21, 2024 Dr. Harry Iniguez MD Attending Provider Active Start: May 21, 2024 Dr. Harry Iniguez MD Other Provider Active Start: May 21, 2024 Dr. Jailyn Wiggins MD Other Provider Active St art: May 21, 2024 Team Status: Active Member Role Status Dates Dr. Denise Uribe MD Primary Care Provider Active Start: May 22, 2024 Dr. Tru Mayer , DO Emergency Provider Activ e Start: May 22, 2024 Dr. Bassem Diamond , DO Admit Provider Active Start: May 22, 2024 Dr. Bassem Diamond , DO Other Provider Active Start: May 22, 2024 Dr. Davie Clayton MD Other Provider Active St art: May 22, 2024 Dr. Harry Iniguez MD Other Provider Active Start: May 22, 2024 Dr. Jailyn Wiggins MD Other Provider Active St art: May 22, 2024 Dr. Jb Jackson MD Attending Provider Active Start: May 22, 2024 Team Status: Active Member Role Status Dates Dr. Denise Uribe MD Primary Care Provider Active Start: May 22, 2024 Dr. Tru Mayer , DO Emergency Provider Activ e Start: May 22, 2024 Dr. Bassem Diamond , DO Admit Provider Active Start: May 22, 2024 Dr. Bassem Diamond , DO Other Provider Active Start: May 22, 2024 Dr. Davie Clayton MD Other Provider Active St art: May 22, 2024 Dr. Harry Iniguez MD Attending Provider Active Start: May 22, 2024 Dr. Harry Iniguez MD Other Provider Active Start: May 22, 2024 Dr. Jailyn Wiggins MD Other Provider Active St art: May 22, 2024 Team Status: Inactive Member Role Status Dates Dr. Denise Uribe MD Primary Care Provider Active Start: June 16, 2024 End: June 18, 2024 Dr. Canelo Gil DO Emergency Provider Active Start: June 16, 2024 End: June 18, 2024 Dr. Jailyn Wiggins MD Admit Provider Active St art: June 16, 2024 End: June 18, 2024 Dr. Jailyn Wiggins MD Referring Provider Active Start: June 16, 2024 End: June 18, 2024 Dr. Jailyn Wiggins MD Other Provider Active St art: June 16, 2024 End: June 18, 2024 Dr. Devi Paredes DO Attending Provider Active Start: June 16, 2024 End: June 18, 2024 Team Status: Active Member Role Status Dates Dr. Denise Uribe MD Primary Care Provider Active Start: June 17, 2024 Dr. Canelo Gil DO Emergency Provider Active Start: June 17, 2024 Dr. Jailyn Wiggins MD Admit Provider Active St art: June 17, 2024 Dr. Jailyn Wiggins MD Other Provider Active St art: June 17, 2024 Dr. Devi Paredes DO Attending Provider Active Start: June 17, 2024 Dr. Devi Paredes DO Other Provider Active S tart: June 17, 2024 Team Status: Active Member Role Status Dates Dr. Denise Uribe MD Primary Care Provider Active Start: June 18, 2024 Dr. Canelo Gil DO Emergency Provider Active Start: June 18, 2024 Dr. Jailyn Wiggins MD Admit Provider Active St art: June 18, 2024 Dr. Jailyn Wiggins MD Other Provider Active St art: June 18, 2024 Dr. Devi Paredes DO Attending Provider Active Start: June 18, 2024 Dr. Devi Paredes DO Other Provider Active S tart: June 18, 2024 Team Status: Inactive Member Role Status Dates Dr. Denise Uribe MD Primary Care Provider Active Start: July 24, 2024 End: July 24, 2024 Dr. Denise Uribe MD Attending Provider Active Start: July 24, 2024 End: July 24, 2024 Dr. Denise Uribe MD Referring Provider Active Start: July 24, 2024 End: July 24, 2024 Team Status: Inactive Member Role Status Dates Dr. Denise Uribe MD Primary Care Provider Active Start: August 07, 2024 End: August 07, 2024 Dr. Denise Uribe MD Attending Provider Active Start: August 07, 2024 End: August 07, 2024 Dr. Denise Uribe MD Referring Provider Active Start: August 07, 2024 End: August 07, 2024 Team Status: Active Member Role Status Dates Dr. Denise Uribe MD Primary Care Provider Active Start: September 17, 2024 Dr. Carrillo Lenz , Emergency Provider Active Start: September 17, 2024 Dr. Jailyn Wiggins MD Admit Provider Active St art: September 17, 2024 Dr. Jailyn Wiggins MD Attending Provider Active Start: September 17, 2024 Goals (unrecognized section and content) Goals may be documented in a n alternate sectionGoals may be documented in an alternate sectionGoals may be documented in an alternate sectionGoals may be documented in an alternate sectionGoals may be documented in an alternate sectionGoals may be documented in an alternate sectionGoals may be documented in an alternate sectionGoals may be documented in an alternate sectionGoals may be documented in an alternate sectionGoals may be documented in an alternate sectionGoals may be documented in an alternate sectionGoals may be documented in an alternate section FOR RECORDS PERTAINING TO PATIENTS WHO ARE OR HAVE BEEN ENROLLED IN A CHEMICAL DEPENDENCY/SUBSTANCEABUSE PROGRAM, SOME INFORMATION MAY BE OMITTED. This clinical summary was aggregated from multiple sources. Caution should be exercised in using it in the provision of clinical care. This summary normalizes information from multiple sources, and as a consequence, information in this document may materially change the coding, format and clinical context of patient data. In addition, data may be omitted in some cases. CLINICAL DECISIONS SHOULD BE BASED ON THE PRIMARY CLINICAL RECORDS. [facility] [employer] [facility]. provides no warranty or guarantee of the accuracy or completeness of information in this document.
[2024-11-15 20:10] LABS: Mucous, Urine 0 SEEN /hpf (<or=2+); Red Blood Cells-Urine 0 SEEN /hpf (0-5)
[2024-11-15 20:15] LABS: Color, Urine Yellow (Yellow); Glucose, Dipstick 250 mg/dl (Normal); Ketone-Dipstick Negative (Negative); Leukocyte Esterase-Dipstick 25 /ul (Negative); Nitrite-Dipstick Negative (Negative); Occult Blood-Urine Negative /ul (Negative); Protein-Dipstick 30 mg/dl (Negative); Urine Bilirubin Dipstick Negative (Negative); Urine Clarity Clear (Clear); Urine Urobilinogen Normal (Normal)
[2024-11-15 20:43] LABS: Squamous Epithelial Cells - UA 5-10 SEEN /hpf (5-10)
[2024-11-15 20:44] LABS: Bacteria 1+ /hpf (None Seen); White Blood Cells 0-5 SEEN /hpf (0-5)
[2024-11-15 22:04] LABS: Troponin T High Sens 2 HR 15 ng/L (<=14)
== END 2024-11-15 22:14 | disposition home or self-care (01) ==
PROVIDERS: Emergency Provider Emergency Medicine; PCP Internal Medicine; Visit Provider Emergency Medicine
DX: R42 Dizziness and giddiness (principal); F31.9 Bipolar disorder, unspecified; I48.0 Paroxysmal atrial fibrillation; E11.42 Type 2 diabetes mellitus with diabetic polyneuropathy; E11.22 Type 2 diabetes mellitus with diabetic chronic kidney disease; N18.30 Chronic kidney disease, stage 3 unspecified; R53.1 Weakness; I25.10 Atherosclerotic heart disease of native coronary artery without angina pectoris; I12.9 Hypertensive chronic kidney disease with stage 1 through stage 4 chronic kidney disease, or unspecified chronic kidney disease; F17.210 Nicotine dependence, cigarettes, uncomplicated; R07.9 Chest pain, unspecified; Z79.01 Long term (current) use of anticoagulants; R29.700 NIHSS score 0; E78.5 Hyperlipidemia, unspecified; D64.9 Anemia, unspecified; Z79.899 Other long term (current) drug therapy
CPT/HCPCS: 70450; 71045; 80048; 81001; 84484; 85025; 93005; 99283; A4216

== ENCOUNTER → 2025-01-06 | Outpatient (CLI) | payer MEDICARE, MEDICAID, SELFPAY ==
[2020-06-04 12:24] VITALS: BMI 26.4
[2025-01-06 13:14] LABS: Creatinine, Urine (random) 58.00 mg/dL (28.00-217.00); Microalbumin,Random Urine 294.0 mg/L (<20 mg/L)
[2025-01-06 13:45] LABS: Cholesterol 178 mg/dL (<=200); Low Density Lipoprotein Calc. 77 mg/dL; Triglycerides 186 mg/dL; Very Low Density Lipoprotein 37 mg/dL (5-40); Vitamin D,25 Hydroxy 21.2 ng/mL (30-100); cholesterol:hdl ratio screen 2.80
== END | disposition home or self-care (01) ==
LOC: LAB 12:10
PROVIDERS: PCP Internal Medicine; Referring Provider Nurse Practitioner Family; Visit Provider Nurse Practitioner Family
DX: E11.9 Type 2 diabetes mellitus without complications (principal); E55.9 Vitamin D deficiency, unspecified
CPT/HCPCS: 36415; 80061; 82043; 82306; 82570; 84439; 84443

== ENCOUNTER 2025-02-05 12:53 | Inpatient (IN) | payer MEDICARE, MEDICAID, SELFPAY ==
[2020-06-04 12:24] VITALS: BMI 26.4
[2025-02-05] VITALS (9 sets, daily range): BP systolic 84–156; BP diastolic 41–72; PULSE 69–83; RESP 14–19; TEMP 35.8–36.9; O2SAT 94–98; BMI 32.1
--- NOTE | 2025-02-05 14:09 | EKG12_ITS ---
Test Reason : SYNCOPE Blood Pressure : */* mmHG Vent. Rate : 75 BPM Atrial Rate : 75 BPM P-R Int : 176 ms QRS Dur : 108 ms QT Int : 428 ms P-R-T Axes : 54 -58 34 degrees QTcB Int : 477 ms Normal sinus rhythm Left axis deviation Minimal voltage criteria for LVH, may be normal variant ( Javier product ) Abnormal ECG Confirmed by LANNY LOPEZ, PANKAJ ([id number]), fan mail editor SANDY DORADO ([id number]) on 02/07/2025 10:35:12 AM Referred By: TB Confirmed By: PANKAJ CA MD
--- NOTE | 2025-02-05 14:18 | EDS_ITS ---
HPI History of Present Illness Chief Complaint: Syncope Narrative Narrative: Chief complaint and HPI: 69-year-old female with past medical history of DM, paroxysmal atrial fibrillation on Eliquis, HTN, HLD, hypothyroidism presents for evaluation of generalized weakness and syncope. Patient states her sister was diagnosed with COVID-19 infection approximately 12 days ago. She states 3 days ago she developed fatigue, change in taste, weakness, and cough. She states her weakness has led to multiple falls. Does not believe herself to hit her head. No LOC. States she has some mild neck pain since the falls. Sister states that she was sitting in her recliner chair when she had a coughing fit and became unresponsive for several seconds. She then was back to baseline. Patient endorses decreased p.o. intake. Per EMS report, patient was found to be hypotensive. Review of systems: See HPI Medications: As listed on the chart Allergies: As listed on the chart PFSH: Per chart Vital signs: As listed on the chart. Reviewed. Physical exam: Gen: Fatigued but O x3, NAD Head: Normocephalic, atraumatic Eyes: No sclera icterus, conjunctiva clear, PERRL ENT: Dry mucous membranes, face atraumatic Neck: Trachea midline, No JVD, no midline spinal tenderness, no bony step-offs full range of motion CV: RRR, no murmurs, no chest wall TTP Resp: Lungs diminished in the bilateral bases and coarse, productive cough present GI: Abd soft, non-distended, non-tender, no r/r/g Musc: Moves all extremities but generalized weakness, no deformity, no spinal TTP, no lucy step-offs Skin: Warm, dry Neuro: Fatigued, oriented, grossly intact, sensation intact Psych: Cooperative, appropriate mood and affect [facility] Medical History Recurrent falls Chronic anemia Acute kidney injury Bipolar disorder Umbilical hernia Hypothyroidism Hiatal hernia Gout Essential hypertension Atrial fibrillation Overweight (BMI 25.0-29.9) Polyneuropathy due to type 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 GFR 30-59 Fibromyalgia affecting multiple sites Shoulder pain, bilateral Hip pain, bilateral Tachybradycardia syndrome Near syncope Generalized OA Atherosclerotic heart disease of [place] coronary artery without angina pectoris Abnormal stress test Hypertension Chronic pancreatic insufficiency Depression Home Medications ?Medication ?Instructions ?Recorded ?Last Taken ?Type lancets #300 ea 01/24/23 Unknown Rx nitroglycerin 0.4 mg sublingual 0.4 mg sublingual Q5-1 5M PRN chest 10/04/23 Unknown Rx tablet (Nitrostat) pain #25 tabs blood sugar diagnostic (OneTouch #300 ea 11/29/23 Unkn own Rx Verio test strips) blood-glucose meter (OneTouch #1 ea 11/29/23 Unknown R x Verio Flex Meter) pen needle, diabetic 32 gauge x #400 ea 02/27/24 Unkno wn Rx (BD Ultra-Fine Sophia Pen Needle) allopurinol 100 mg tablet 100 mg PO QHS gout #90 tabs 03/18/24 05/12/24 Rx nystatin 100,000 unit/gram topical 1 applic topical BI D PRN for 03/19/24 05/12/24 Rx powder ([facility]) infectious disease #30 GMS flash glucose sensor (FreeStyle #6 ea 03/21/24 Unknown Rx Marilyn 14 Day Sensor kit) handicap placard #1 ea 04/16/24 Unknown Rx carvedilol 6.25 mg tablet 6.25 mg PO BID blood pressur e #180 06/06/24 Unknown Rx tabs ticagrelor 90 mg tablet 90 mg PO BID #180 tabs 08/21 Unknown Rx atorvastatin 80 mg tablet 80 mg PO QHS Hyperlipidemia #100 09/03/24 Unknown Rx tabs colestipol 1 gram tablet 1 g PO DAILY cholesterol #10 0 tabs 09/03/24 Unknown Rx albuterol sulfate 90 mcg/actuation 2 puff inhalation Q 6H PRN Wheezing 09/05/24 Unknown Rx aerosol inhaler #8.5 grams apixaban 5 mg tablet (Eliquis) 5 mg PO BID blood thinn er #180 tabs 09/11/24 Unknown Rx icosapent ethyl 1 gram capsule 2 g (2 x 1 gram) PO BID #120 caps 10/07/24 Unknown Rx (Vascepa) losartan 50 mg tablet 50 mg PO DAILY blood pressur e #84 10/21/24 Unknown Rx TABLETS divalproex 125 mg capsule,delayed 125 mg PO BID bipola r #56 caps 11/12/24 Unknown Rx release sprinkle insulin glargine 100 unit/mL (3 50 unit (0.5 mL) subcu t QHS 12/16/24 Unknown Rx mL) subcutaneous pen (Lantus diabetes #45 mL Solostar U-100 Insulin) rabeprazole 20 mg tablet,delayed 20 mg PO DAILY for ac id reflux #30 12/17/24 Unknown Rx release TABLETS dulaglutide 0.75 mg/0.5 mL 0.75 mg (0.5 mL) subcut QWE EK #2 mL 01/06/25 Unknown Rx subcutaneous pen injector (Trulicity) dulaglutide 0.75 mg/0.5 mL 0.75 mg (0.5 mL) subcut QWE EK #2 mL 01/06/25 Unknown Rx subcutaneous pen injector (Trulicity) amitriptyline 50 mg tablet 50 mg PO QHS sleep #30 tabs 01/24/25 Unknown Rx levothyroxine 112 mcg tablet 112 mcg PO .monday to mon day for 01/24/25 Unknown Rx disorder of thyroid gland #25 TABLETS insulin lispro 100 unit/mL 25 unit subcut TID diabetes 02/05/25 Unknown History subcutaneous pen (Humalog KwikPen (U-100) Insulin) Allergy/AdvReac Type Severity Reaction Status Date / Time duloxetine (From Cymbalta) Allergy Itching Verified 02/05/25 13:00 Environmental Allergies: Allergy Cough Verified 02/05/25 13:00 Uncoded tomato Allergy Itching Verified 02/05/25 13:00 diphenhydramine (From AdvReac Severe other Verified 02/05/25 13:00
--- NOTE | 2025-02-05 14:18 | EX.ED.DYSGE1 ---
HPI History of Present Illness Chief Complaint: Syncope Narrative Narrative: Chief complaint and HPI: 69-year-old female with past medical history of DM, paroxysmal atrial fibrillation on Eliquis, HTN, HLD, hypothyroidism presents for evaluation of generalized weakness and syncope. Patient states her sister was diagnosed with COVID-19 infection approximately 12 days ago. She states 3 days ago she developed fatigue, change in taste, weakness, and cough. She states her weakness has led to multiple falls. Does not believe herself to hit her head. No LOC. States she has some mild neck pain since the falls. Sister states that she was sitting in her recliner chair when she had a coughing fit and became unresponsive for several seconds. She then was back to baseline. Patient endorses decreased p.o. intake. Per EMS report, patient was found to be hypotensive. Review of systems: See HPI Medications: As listed on the chart Allergies: As listed on the chart PFSH: Per chart Vital signs: As listed on the chart. Reviewed. Physical exam: Gen: Fatigued but O x3, NAD Head: Normocephalic, atraumatic Eyes: No sclera icterus, conjunctiva clear, PERRL ENT: Dry mucous membranes, face atraumatic Neck: Trachea midline, No JVD, no midline spinal tenderness, no bony step-offs full range of motion CV: RRR, no murmurs, no chest wall TTP Resp: Lungs diminished in the bilateral bases and coarse, productive cough present GI: Abd soft, non-distended, non-tender, no r/r/g Musc: Moves all extremities but generalized weakness, no deformity, no spinal TTP, no lucy step-offs Skin: Warm, dry Neuro: Fatigued, oriented, grossly intact, sensation intact Psych: Cooperative, appropriate mood and affect [facility] Medical History Recurrent falls Chronic anemia Acute kidney injury Bipolar disorder Umbilical hernia Hypothyroidism Hiatal hernia Gout Essential hypertension Atrial fibrillation Overweight (BMI 25.0-29.9) Polyneuropathy due to type 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 GFR 30-59 Fibromyalgia affecting multiple sites Shoulder pain, bilateral Hip pain, bilateral Tachybradycardia syndrome Near syncope Generalized 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 Abnormal stress test Hypertension Chronic pancreatic insufficiency Depression Home Medications ?Medication ?Instructions ?Recorded ?Last Taken ?Type lancets #300 ea 01/24/23 Unknown Rx nitroglycerin 0.4 mg sublingual 0.4 mg sublingual Q5-15M PRN chest 10/04/23 Unknown Rx tablet (Nitrostat) pain #25 tabs blood sugar diagnostic (OneTouch #300 ea 11/29/23 Unknown Rx Verio test strips) blood-glucose meter (OneTouch #1 ea 11/29/23 Unknown Rx Verio Flex Meter) pen needle, diabetic 32 gauge x #400 ea 02/27/24 Unknown Rx 32 (BD Ultra-Fine Sophia Pen Needle) allopurinol 100 mg tablet 100 mg PO QHS gout #90 tabs 03/18/24 05/12/24 Rx nystatin 100,000 unit/gram topical 1 applic topical BID PRN for 03/19/24 05/12/24 Rx powder ([facility]) infectious disease #30 GMS flash glucose sensor (FreeStyle #6 ea 03/21/24 Unknown Rx Marilyn 14 Day Sensor kit) handicap placard #1 ea 04/16/24 Unknown Rx carvedilol 6.25 mg tablet 6.25 mg PO BID blood pressure #180 06/06/24 Unknown Rx tabs ticagrelor 90 mg tablet 90 mg PO BID #180 tabs 08/21/24 Unknown Rx atorvastatin 80 mg tablet 80 mg PO QHS Hyperlipidemia #100 09/03/24 Unknown Rx tabs colestipol 1 gram tablet 1 g PO DAILY cholesterol #100 tabs 09/03/24 Unknown Rx albuterol sulfate 90 mcg/actuation 2 puff inhalation Q6H PRN Wheezing 09/05/24 Unknown Rx aerosol inhaler #8.5 grams apixaban 5 mg tablet (Eliquis) 5 mg PO BID blood thinner #180 tabs 09/11/24 Unknown Rx icosapent ethyl 1 gram capsule 2 g (2 x 1 gram) PO BID #120 caps 10/07/24 Unknown Rx (Vascepa) losartan 50 mg tablet 50 mg PO DAILY blood pressure #84 10/21/24 Unknown Rx TABLETS divalproex 125 mg capsule,delayed 125 mg PO BID bipolar #56 caps 11/12/24 Unknown Rx release sprinkle insulin glargine 100 unit/mL (3 50 unit (0.5 mL) subcut QHS 12/16/24 Unknown Rx mL) subcutaneous pen (Lantus diabetes #45 mL Solostar U-100 Insulin) rabeprazole 20 mg tablet,delayed 20 mg PO DAILY for acid reflux #30 12/17/24 Unknown Rx release TABLETS dulaglutide 0.75 mg/0.5 mL 0.75 mg (0.5 mL) subcut QWEEK #2 mL 01/06/25 Unknown Rx subcutaneous pen injector (Trulicity) dulaglutide 0.75 mg/0.5 mL 0.75 mg (0.5 mL) subcut QWEEK #2 mL 01/06/25 Unknown Rx subcutaneous pen injector (Trulicity) amitriptyline 50 mg tablet 50 mg PO QHS sleep #30 tabs 01/24/25 Unknown Rx levothyroxine 112 mcg tablet 112 mcg PO .monday to monday for 01/24/25 Unknown Rx disorder of thyroid gland #25 TABLETS insulin lispro 100 unit/mL 25 unit subcut TID diabetes 02/05/25 Unknown History subcutaneous pen (Humalog KwikPen (U-100) Insulin) Allergy/AdvReac Type Severity Reaction Status Date / Time duloxetine (From Cymbalta) Allergy Itching Verified 02/05/25 13:00 Environmental Allergies: Allergy Cough Verified 02/05/25 13:00 Uncoded tomato Allergy Itching Verified 02/05/25 13:00 diphenhydramine (From AdvReac Severe other Verified 02/05/25 13:00 Benadryl) isosorbide AdvReac Intermediate Other Verified 02/05/25 13:00 adhesive tape (plastic tape) AdvReac Rash Verified 02/05/25 13:00 semaglutide (From Ozempic) AdvReac Diarrhea Verified 02/05/25 13:00 Family History Sister COPD (chronic obstructive pulmonary disease) Mother COPD (chronic obstructive pulmonary disease) Hypertension Alzheimer's dementia without behavioral disturbance Father Diabetes Hypertension Myocardial infarction Parkinsons disease Surgical History History of surgical procedure History of laparoscopic appendectomy History of total abdominal hysterectomy Hx of cholecystectomy Hx of shoulder surgery Presence of stent in coronary artery (~09/06/21) Social History household members: family current occupational status: retired 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 Smoking Status: Current every day smoker tobacco type: cigarettes Electronic Cigarette Use: not used alcohol intake: never substance use type: does not use caffeine: No what type of physical activity do you participate in: none do you feel safe at home: Yes EXAM Physical Exam Const Vital Signs: 02/05/25 12:57 02/05/25 13:19 02/05/25 14:00 Temperature 98.2 F 98.4 F Temperature Source Oral Oral Pulse Rate 77 71 Respiratory Rate 18 19 H Respiratory Pattern Normal Blood Pressure 85/57 L 87/41 L Blood Pressure Mean 66 56 Pulse Ox 97 97 Oxygen Delivery Method Room Air Room Air 02/05/25 14:24 02/05/25 15:00 02/05/25 16:00 Temperature 98.1 F 97.8 F Temperature Source Oral Oral Pulse Rate 73 75 69 Respiratory Rate 18 14 16 Respiratory Pattern Normal Blood Pressure 84/58 L 100/58 L Blood Pressure Mean 66 72 Pulse Ox 97 98 Oxygen Delivery Method Room Air Room Air MDM MDM MDM Narrative Medical decision making narrative: 69-year-old female with past medical history of DM, paroxysmal atrial fibrillation on Eliquis, HTN, HLD, hypothyroidism presents for evaluation of generalized weakness and syncope. Patient states her sister was diagnosed with COVID-19 infection approximately 12 days ago. She states 3 days ago she developed fatigue, change in taste, weakness, and cough. She states her weakness has led to multiple falls. Does not believe herself to hit her head. No LOC. States she has some mild neck pain since the falls. Sister states that she was sitting in her recliner chair when she had a coughing fit and became unresponsive for several seconds. She then was back to baseline. On presentation, patient is fatigued but oriented x 3. Vitals are stable other than hypotension. Differential diagnosis includes but is not limited to COVID-19 infection, influenza, pneumonia, electrolyte abnormality, dehydration, ACS, PE, suspect less likely traumatic injury. NS bolus ordered. Infectious/trauma workup ordered. CT of the brain shows no evidence of intracranial hemorrhage or acute ischemia. Chronic changes. CT of the cervical spine shows degenerative changes. No acute traumatic injury. COVID, flu, RSV negative. CBC without leukocytosis. Patient has baseline anemia of 9.7 and baseline thrombocytosis of 477. Coagulation panel relatively unremarkable. D-dimer unremarkable. BMP shows dehydration, hypokalemia, SALVATORE. Potassium 3.2. P.o. potassium ordered. Lactic acid 2.9. Another NS bolus ordered. No transaminitis. BNP unremarkable. Troponin 35. Patient not have any chest pain however will obtain delta. UA negative for UTI. On reevaluation, patient's blood pressure is improving with fluids. Patient will warrant admission for continued hydration and observation. Repeat troponin 32. patient was updated of all the results and confirmed understand the plan. He spoke with the hospice service who accepted admission. EKG: Interpreted by me/EM physician: EKG shows normal sinus rhythm with no ST elevation. Heart rate 75 Diagnostic: Interpreted by me/EM physician: Chest x-ray without pneumonia, large effusion, pneumothorax, mild cardiomegaly. Radiology in agreement. Impression: 1. Viral syndrome 2. SALVATORE/dehydration 3. Mild hypokalemia 4. Generalized weakness 5. Syncope Lab Data Labs: Laboratory Results - last 24 hr 02/05/25 02/05/25 02/05/25 13:07 14:08 14:35 WBC 9.3 RBC 3.55 L Hgb 9.7 L Hct 30.7 L MCV 86.5 MCH 27.3 MCHC 31.6 L RDW Std Deviation 58.0 H RDW Coeff of Yaw 18.3 H Plt Count 477 H MPV 9.0 Immature Gran % (Auto) 0.600 Neut % (Auto) 65.9 Lymph % (Auto) 19.0 [place] % (Auto) 10.7 H Eos % (Auto) 3.3 Baso % (Auto) 0.5 Absolute Neuts (auto) 6.1 Absolute Lymphs (auto) 1.77 Nucleated RBC % 0 PT 15.9 H INR 1.2 APTT 28.8 D-Dimer Quant (PE/DVT) < 0.27 L Sodium 135 Potassium 3.2 L Chloride 102 Carbon Dioxide 18.3 L Anion Gap 14 BUN 26 H Creatinine 2.33 H Estim Creat Clear Calc 20.51 L Est GFR (MDRD) Non-Af 22 L BUN/Creatinine Ratio 11.0 Glucose 155 H Lactic Acid 2.9 H* Calcium 6.8 L Magnesium 1.7 Total Bilirubin 0.27 AST 17 ALT 17 Alkaline Phosphatase 84 Troponin T High Sens 35 H D Troponin T Hi Sens 2 Hr NT pro BNP II 194 Total Protein 5.2 L Albumin 3.1 L Globulin 2.1 L Albumin/Globulin Ratio 1.4 Urine Color Urine Clarity Urine pH Ur Specific [place] Urine Protein Urine Glucose (UA) Urine Ketones Urine Occult Blood Urine Nitrite Urine Bilirubin Urine Urobilinogen Ur Leukocyte Esterase Urine RBC Urine WBC Ur Squamous Epith Cells Urine Bacteria Urine Mucus POC Glucose 02/05/25 02/05/25 02/05/25 15:03 15:46 16:07 WBC RBC Hgb Hct MCV MCH MCHC RDW Std Deviation RDW Coeff of Yaw Plt Count MPV Immature Gran % (Auto) Neut % (Auto) Lymph % (Auto) [place] % (Auto) Eos % (Auto) Baso % (Auto) Absolute Neuts (auto) Absolute Lymphs (auto) Nucleated RBC % PT INR APTT D-Dimer Quant (PE/DVT) Sodium Potassium Chloride Carbon Dioxide Anion Gap BUN Creatinine Estim Creat Clear Calc Est GFR (MDRD) Non-Af BUN/Creatinine Ratio Glucose Lactic Acid Calcium Magnesium Total Bilirubin AST ALT Alkaline Phosphatase Troponin T High Sens Troponin T Hi Sens 2 Hr 32 H NT pro BNP II Total Protein Albumin Globulin Albumin/Globulin Ratio Urine Color Yellow Urine Clarity Clear Urine pH 5.0 Ur Specific [place] 1.020 Urine Protein 100 H Urine Glucose (UA) 1000 H Urine Ketones Negative Urine Occult Blood Negative Urine Nitrite Negative Urine Bilirubin Negative Urine Urobilinogen Normal Ur Leukocyte Esterase Negative Urine RBC 0 SEEN Urine WBC 0-5 SEEN Ur Squamous Epith Cells 0 SEEN Urine Bacteria 0 SEEN Urine Mucus 0 SEEN POC Glucose 173 H Radiography Diagnostic Testing: Clinical Impression(s) from Imaging Studies Brain CT 02/05/25 14:50 IMPRESSION: 1. No evidence of intracranial hemorrhage or acute ischemia. 2. Changes of chronic microvascular ischemia and volume loss. Reading Location: [id number] Cervical Spine CT 02/05/25 14:50 IMPRESSION: DEGENERATIVE CHANGES OF THE CERVICAL SPINE. NO EVIDENCE OF SIGNIFICANT OSSEOUS CENTRAL CANAL OR NEURAL FORAMINAL STENOSIS. [facility] 02/05/25 14:55 IMPRESSION: Mild cardiac enlargement. Reading Location: [facility] Discharge Plan Triage Chief Complaint: Syncope ED Provider: Tru Mayer Dx/Rx/DC Orders Prescriptions: No Action (DME) lancets Misc See Rx Instructions .ROUTE .MEDSUPPLY Qty: 300 0RF Rx Instructions: Check 3 times a day and as needed Trulicity 0.75 mg/0.5 mL pen injector 0.75 mg subcut QWEEK Qty: 2 3RF Trulicity 0.75 mg/0.5 mL pen injector 0.75 mg subcut QWEEK Qty: 2 0RF insulin lispro [Humalog KwikPen Insulin] 100 unit/mL insulin pen 25 unit subcut TID MDD 80 Rx Instructions: plus sliding scale nitroglycerin [Nitrostat] 0.4 mg tablet, sublingual 0.4 mg sublingual Q5-15M PRN (Reason: chest pain) Qty: 25 3RF Rx Instructions: do not exceed 3 doses per episode (DME) OneTouch Verio test strips Strip See Rx Instructions .ROUTE .MEDSUPPLY Qty: 300 3RF Rx Instructions: Check 3 times a day and as needed (DME) blood-glucose meter [OneTouch Verio Flex meter] Misc See Rx Instructions .Route Qty: 1 0RF Rx Instructions: As directed (DME) pen needle, diabetic [BD Ultra-Fine Sophia Pen Needle] 32 gauge x 5/32 needle See Rx Instructions .Route Qty: 400 3RF Rx Instructions: qid allopurinol 100 mg tablet 100 mg PO QHS Qty: 90 11RF nystatin [Nyamyc] 100,000 unit/gram powder 1 applic topical BID PRN (Reason: for infectious disease) Qty: 30 11RF (DME) FreeStyle Marliyn 14 Day Sensor Kit See Rx Instructions .ROUTE .MEDSUPPLY Qty: 6 3RF Rx Instructions: As directed (DME) handicap placard See Rx Instructions .ROUTE .MEDSUPPLY Qty: 1 0RF Rx Instructions: Length of time: 1 years Diagnosis: Impaired physical mobility Z74.09 carvedilol 6.25 mg tablet 6.25 mg PO BID Qty: 180 3RF Rx Instructions: must administer with a meal/food ticagrelor 90 mg tablet 90 mg PO BID Qty: 180 3RF atorvastatin 80 mg tablet 80 mg PO QHS Qty: 100 1RF Rx Instructions: cholesterol colestipol 1 gram tablet 1 g PO DAILY Qty: 100 1RF albuterol sulfate 90 mcg/actuation HFA aerosol inhaler 2 puff INHALATION Q6H PRN (Reason: Wheezing) Qty: 8.5 1RF Eliquis 5 mg tablet 5 mg PO BID Qty: 180 3RF icosapent ethyl [Vascepa] 1 gram capsule 2 g PO BID Qty: 120 5RF losartan 50 mg tablet 50 mg PO DAILY Qty: 84 0RF divalproex 125 mg capsule, delayed rel sprinkle 125 mg PO BID Qty: 56 1RF insulin glargine [Lantus Solostar U-100 Insulin] 100 unit/mL (3 mL) insulin pen 50 unit subcut QHS Qty: 45 1RF rabeprazole 20 mg tablet,delayed release (DR/EC) 20 mg PO DAILY Qty: 30 0RF levothyroxine 112 mcg tablet 112 mcg PO .monday to monday Qty: 25 0RF amitriptyline 50 mg tablet 50 mg PO QHS Qty: 30 0RF Primary Care Provider: Denise Uribe Referrals: Denise Uribe MD [Primary Care Provider, Internal Medicine] Print Language: Thai
[2025-02-05 14:32] LABS: Hematocrit 30.7 % (37-47); Hemoglobin 9.7 g/dL (12.0-15.0); Immature Granulocytes Count 0.060 X10^3/uL (0.0-0.0); Mean Corp Hgb Conc 31.6 g/dL (32-36); Mean Corpuscular Volume 86.5 fL (81-99); Mean Platelet Vol. 9.0 fl (6.2-12.0); NRBC Flagged by Analyzer 0 % (0-5); Platelet Count 477 K/mm3 (150-450); RBC Distribution Width CV 18.3 % (11.6-14.6); RBC Distribution Width SD 58.0 fl (35.1-43.9); Red Blood Count 3.55 M/mm3 (4.2-5.4); White Blood Count 9.3 K/mm3 (4.4-11.0)
[2025-02-05] MEDS: 0.9% Normal Saline (1000mL) 1,000 ML 999 ML IV (14:39)
--- NOTE | 2025-02-05 14:50 | CT_ITS ---
PROCEDURE: SPINE CERVICAL WITHOUT CONTRAS 02/05/2025 REASON FOR EXAM: FALLS TECHNIQUE: Procedure Code: CTSPC Modality: CT Procedure: SPINE CERVICAL WITHOUT CONTRAS Coronal and Sagittal reconstruction series were provided. One or more dose reduction techniques were used (e.g., Automated exposure control, adjustment of the mA and/or kV according to patient size, use of iterative reconstruction technique. RADIATION DOSE SUMMARY: CTDlvol: 27.37 mGy DLP: 586.07 mGycm COMPARISON: None FINDINGS: Alignment: Straightening of the normal cervical lordosis. Vertebrae: Multilevel spondylosis. No vertebral fracture seen. Soft Tissues: No prevertebral soft tissue swelling. Other: Calcification of the carotid bifurcations. C1-2: Unremarkable. C2-3: Unremarkable. C3-4: Mild degree of disc space narrowing and anterior spondylosis. No central or neural foraminal stenosis. C4-5: Moderate degree of disc space narrowing and spondylosis. Uncovertebral arthrosis. Mild right neural foraminal stenosis. C5-6: Moderate degree of disc space narrowing. Spondylosis. No significant stenosis is seen. C6-7: Moderate degree of disc space narrowing. Spondylosis. No significant stenosis seen. C7-T1: Unremarkable CT/Spine Cervical without Contras IMPRESSION: DEGENERATIVE CHANGES OF THE CERVICAL SPINE. NO EVIDENCE OF SIGNIFICANT OSSEOUS CENTRAL CANAL OR NEURAL FORAMINAL STENOSIS. Reading Location: [place] [id number]
--- NOTE | 2025-02-05 14:50 | CT_ITS ---
PROCEDURE: BRAIN/HEAD WITHOUT CONTRAST 02/05/2025 REASON FOR EXAM: SYNCOPE TECHNIQUE: Procedure Code: CTBR Modality: CT Procedure: BRAIN/HEAD WITHOUT CONTRAST Coronal and Sagittal reconstruction series were provided. One or more dose reduction techniques were used (e.g., Automated exposure control, adjustment of the mA and/or kV according to patient size, use of iterative reconstruction technique. RADIATION DOSE SUMMARY: CTDlvol: 73 mGy DLP: 1449 mGycm COMPARISON: November 15, 2024 FINDINGS: Brain: There is no evidence of hemorrhage, acute ischemia or mass. No extra- axial fluid collection, midline shift or mass effect. Mild low-density in the periventricular white matter, deep white matter. CSF Spaces: Mild generalized cerebral atrophy Sinuses/Mastoids: Clear. Bones: No fracture. CT/Brain/Head without Contrast IMPRESSION: 1. No evidence of intracranial hemorrhage or acute ischemia. 2. Changes of chronic microvascular ischemia and volume loss. Reading Location: [id number]
--- NOTE | 2025-02-05 14:55 | RAD_ITS ---
PROCEDURE: CHEST PA AND LATERAL 02/05/2025 REASON FOR EXAM: COUGH TECHNIQUE: Procedure Code: RADCXR Modality: DX Procedure: CHEST PA AND LATERAL COMPARISON: June 16, 2024 FINDINGS: Hardware: EKG leads Heart: Enlarged Mediastinum: Mild aortic atherosclerosis. Lungs: Clear. No pneumothorax or pleural effusion. Bones: Degenerative changes are identified within the thoracic spine. RAD/Chest PA and Lateral IMPRESSION: Mild cardiac enlargement. Reading Location: [id number]
[2025-02-05 15:08] LABS: Pro- Brain NATRIURETIC PEPTIDE 194 pg/mL (<=900); Troponin T High Sensitivity 35 ng/L (<=14)
[2025-02-05 15:09] LABS: Prothrombin Time (Protime)PT. 15.9 SECONDS (11.7-14.9)
[2025-02-05 15:10] LABS: Partial Thromboplast Time 28.8 Seconds (24.1-36.2)
[2025-02-05 15:19] LABS: AST(SGOT) 17 U/L (<=31); Alanine Aminotransfer ALT/SGPT 17 U/L (<=34); Albumin, Serum 3.1 g/dL (3.4-4.8); Alkaline Phosphatase 84 U/L (35-104); Anion Gap 14 (5-15); BUN 26 mg/dL (4-19); BUN/Creat Ratio 11.0 RATIO (10-20); Calcium,Total 6.8 mg/dL (7.6-11.0); Carbon Dioxide 18.3 mmol/L (21.0-32.0); Chloride 102 mmol/L (98-108); Estimated Creatinine Clearance 20.51 ml/min (50-250); Globulin 2.1 g/dL (2.2-4.2); Glucose 155 mg/dL (70-99); Potassium 3.2 mmol/L (3.3-5.1)
[2025-02-05 15:27] LABS: D-Dimer Quantitative (DVT/PE) < 0.27 FEU/ug/m (0.27-0.49)
[2025-02-05] MEDS: 0.9% Normal Saline (1000mL) 1,000 ML 1000 ML IV (15:34)
[2025-02-05 15:51] LABS: Mucous, Urine 0 SEEN /hpf (<or=2+); Red Blood Cells-Urine 0 SEEN /hpf (0-5); Squamous Epithelial Cells - UA 0 SEEN /hpf (5-10)
[2025-02-05 15:53] LABS: Glucose, Dipstick 1000 mg/dl (Normal); Ketone-Dipstick Negative (Negative); Leukocyte Esterase-Dipstick Negative /ul (Negative); Nitrite-Dipstick Negative (Negative); Occult Blood-Urine Negative /ul (Negative); Protein-Dipstick 100 mg/dl (Negative); Specific Gravity, Urine 1.020 (1.002-1.030); Urine Bilirubin Dipstick Negative (Negative)
[2025-02-05 16:14] LABS: Color, Urine Yellow (Yellow)
[2025-02-05 16:17] LABS: Magnesium 1.7 mg/dL (1.5-2.2)
[2025-02-05] MEDS: Potassium Chloride Oral Tablet 20 MEQ 40 MEQ PO (16:31)
[2025-02-05 16:37] LABS: Troponin T High Sens 2 HR 32 ng/L (<=14)
--- NOTE | 2025-02-05 17:03 | PCM.HP.STD ---
HPI - General General Date of Admission: 02/05/25 Date of Service: 02/05/25 Chief Complaint: Cough, generalized weakness, loss of consciousness HPI Narrative ASIF CASTRO, is a 69-year-old female history of gout, coronary artery disease, A-fib, diabetes, hypothyroidism, GERD, bipolar disorder who presented [facility] ED 02/05/2025 for evaluation of generalized weakness and syncope. Has a sister who was diagnosed with COVID infection approximately 12 days ago. Patient has had 3 days of fatigue, change in taste, weakness and cough with multiple falls due to her weakness. Does not think she hit her head with no loss of consciousness. Sister also noted that she was sitting in her recliner when she had a coughing fit and became unresponsive for several seconds and then was back to baseline. Patient has had poor p.o. intake and per EMS report she was hypotensive. In the ED temp 98.2, heart rate 77, blood pressure 85/57 with respiratory rate of 18 pulse ox 97% on room air. CBC with white blood cell count 9.3, hemoglobin 9.7 which seems to be baseline, CMP with potassium 3.2, bicarb 18 with a gap within normal range of 14, BUN 26 and creatinine 2.33. D-dimer less than 0.27. Troponin 35 and proBNP 194. Lactic acid 2.9. Brain CT with chronic changes, cervical spine CT degenerative changes with no acute process, chest x-ray mild cardiac enlargement. UA unrevealing. Given patient's low blood pressure, poor p.o. intake with SALVATORE and increased lactic with generalized weakness hospitalist contacted for admission. Patient evaluated bedside. She reports for the past several days she has been very fatigued and weak all over and that her legs will just give out and she will fall when she is too weak to pick herself back up, she has had a cough with nasal congestion, headache, bilateral ear congestion, she has had diarrhea for 3 days as well with nausea and has had very poor p.o. intake and has not been able to consistently take her medicines. Had an episode of burning feeling yesterday in her chest that did improve when she took a couple of her home medications and has no similar symptoms now. 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 GFR 30-59 Fibromyalgia affecting multiple sites Shoulder pain, bilateral Hip pain, bilateral Tachybradycardia syndrome Near syncope Generalized OA Atherosclerotic heart disease of [place] coronary artery without angina pectoris Abnormal stress test Hypertension Chronic pancreatic insufficiency Depression Home Medications ?Medication ?Instructions ?Recorded ?Last Taken ?Type lancets #300 ea 01/24/23 Unknown Rx nitroglycerin 0.4 mg sublingual 0.4 mg sublingual Q5-15M PRN chest 10/04/23 Unknown Rx tablet (Nitrostat) pain #25 tabs blood sugar diagnostic (OneTouch #300 ea 11/29/23 Unknown Rx Verio test strips) blood-glucose meter (OneTouch #1 ea 11/29/23 Unknown Rx Verio Flex Meter) pen needle, diabetic 32 gauge x #400 ea 02/27/24 Unknown Rx (BD Ultra-Fine Sophia Pen Needle) allopurinol 100 mg tablet 100 mg PO QHS gout #90 tabs 03/18/24 05/12/24 Rx nystatin 100,000 unit/gram topical 1 applic topical BID PRN for 03/19/24 05/12/24 Rx powder ([facility]) infectious disease #30 GMS flash glucose sensor (FreeStyle #6 ea 03/21/24 Unknown Rx Marilyn 14 Day Sensor kit) handicap placard #1 ea 04/16/24 Unknown Rx carvedilol 6.25 mg tablet 6.25 mg PO BID blood pressure #180 06/06/24 Unknown Rx tabs ticagrelor 90 mg tablet 90 mg PO BID #180 tabs 08/21/24 Unknown Rx atorvastatin 80 mg tablet 80 mg PO QHS Hyperlipidemia #100 09/03/24 Unknown Rx tabs colestipol 1 gram tablet 1 g PO DAILY cholesterol #100 tabs 09/03/24 Unknown Rx albuterol sulfate 90 mcg/actuation 2 puff inhalation Q6H PRN Wheezing 09/05/24 Unknown Rx aerosol inhaler #8.5 grams apixaban 5 mg tablet (Eliquis) 5 mg PO BID blood thinner #180 tabs 09/11/24 Unknown Rx icosapent ethyl 1 gram capsule 2 g (2 x 1 gram) PO BID #120 caps 10/07/24 Unknown Rx (Vascepa) losartan 50 mg tablet 50 mg PO DAILY blood pressure #84 10/21/24 Unknown Rx TABLETS divalproex 125 mg capsule,delayed 125 mg PO BID bipolar #56 caps 11/12/24 Unknown Rx release sprinkle insulin glargine 100 unit/mL (3 50 unit (0.5 mL) subcut QHS 12/16/24 Unknown Rx mL) subcutaneous pen (Lantus diabetes #45 mL Solostar U-100 Insulin) rabeprazole 20 mg tablet,delayed 20 mg PO DAILY for acid reflux #30 12/17/24 Unknown Rx release TABLETS dulaglutide 0.75 mg/0.5 mL 0.75 mg (0.5 mL) subcut QWEEK #2 mL 01/06/25 Unknown Rx subcutaneous pen injector (Trulicity) dulaglutide 0.75 mg/0.5 mL 0.75 mg (0.5 mL) subcut QWEEK #2 mL 01/06/25 Unknown Rx subcutaneous pen injector (Trulicity) amitriptyline 50 mg tablet 50 mg PO QHS sleep #30 tabs 01/24/25 Unknown Rx levothyroxine 112 mcg tablet 112 mcg PO .monday to monday for 01/24/25 Unknown Rx disorder of thyroid gland #25 TABLETS insulin lispro 100 unit/mL 25 unit subcut TID diabetes 02/05/25 Unknown History subcutaneous pen (Humalog KwikPen (U-100) Insulin) Allergy/AdvReac Type Severity Reaction Status Date / Time duloxetine (From Cymbalta) Allergy Itching Verified 02/05/25 13:00 Environmental Allergies: Allergy Cough Verified 02/05/25 13:00 Uncoded tomato Allergy Itching Verified 02/05/25 13:00 diphenhydramine (From AdvReac Severe other Verified 02/05/25 13:00 Benadryl) isosorbide AdvReac Intermediate Other Verified 02/05/25 13:00 adhesive tape (plastic tape) AdvReac Rash Verified 02/05/25 13:00 semaglutide (From Ozempic) AdvReac Diarrhea Verified 02/05/25 13:00 Family History Sister COPD (chronic obstructive pulmonary disease) Mother COPD (chronic obstructive pulmonary disease) Hypertension Alzheimer's dementia without behavioral disturbance Father Diabetes Hypertension Myocardial infarction Parkinsons disease Surgical History History of surgical procedure History of laparoscopic appendectomy History of total abdominal hysterectomy Hx of cholecystectomy Hx of shoulder surgery Presence of stent in coronary artery (~09/06/21) Social History household members: family current occupational status: retired 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 Smoking Status: Current every day smoker tobacco type: cigarettes Electronic Cigarette Use: not used alcohol intake: never substance use type: does not use caffeine: No what type of physical activity do you participate in: none do you feel safe at home: Yes ROS ROS Narrative General: Denies fever HENT: Does have headache and nasal congestion, sometimes sore throat when she has a lot of coughing EYES: Denies changes in vision Resp: No shortness of breath at this time, sometimes will on longer distances with ambulation, does have cough cardiac: Denies chest pain GI: Denies abdominal pain, has had diarrhea and nausea for the past several days : Denies changes in urination Extremity: Denies swelling MSK: Generalized weakness Neuro: Denies any numbness/tingling Heme: Denies any bleeding or bruising Skin: Denies rashes Psychiatric: Just feels generally unwell Vital Signs Vital Signs Vital Signs: 02/05/25 12:57 02/05/25 13:19 02/05/25 14:00 Temperature 98.2 F 98.4 F Temperature Source Oral Oral Pulse Rate 77 71 Respiratory Rate 18 19 H Respiratory Pattern Normal Blood Pressure 85/57 L 87/41 L Blood Pressure Mean 66 56 Pulse Ox 97 97 Oxygen Delivery Method Room Air Room Air 02/05/25 14:24 02/05/25 15:00 02/05/25 16:00 Temperature 98.1 F 97.8 F Temperature Source Oral Oral Pulse Rate 73 75 69 Respiratory Rate 18 14 16 Respiratory Pattern Normal Blood Pressure 84/58 L 100/58 L Blood Pressure Mean 66 72 Pulse Ox 97 98 Oxygen Delivery Method Room Air Room Air Weight Weight: 72.3 kg Body Mass Index (BMI) 32.1 Physical Exam Narrative General: Alert, oriented, appears to feel unwell HEENT: Normocephalic Eyes: Anicteric, normal conjunctiva, extraocular movements grossly intact Neck: Supple Respiratory: Normal respiratory effort Cardiovascular: Regular rate and rhythm GI: Soft, nontender, nondistended Extremities: No significant pitting edema Musculoskeletal: Moving all extremities Neuro: No overt focal neurological deficits Skin: No rashes appreciated Psych: Cooperative Results Lab / Micro Data 02/05/25 13:07 02/05/25 14:08 Labs: Laboratory Results - last 24 hr 02/05/25 13:07: WBC 9.3, RBC 3.55 L, Hgb 9.7 L, Hct 30.7 L, MCV 86.5, MCH 27.3, MCHC 31.6 L, RDW Std Deviation 58.0 H, RDW Coeff of Yaw 18.3 H, Plt Count 477 H, MPV 9.0, Immature Gran % (Auto) 0.600, Neut % (Auto) 65.9, Lymph % (Auto) 19.0, [place] % (Auto) 10.7 H, Eos % (Auto) 3.3, Baso % (Auto) 0.5, Absolute Neuts (auto) 6.1, Absolute Lymphs (auto) 1.77, Nucleated RBC % 0, Troponin T High Sens 35 H D, NT pro BNP II 194 02/05/25 14:08: Sodium 135, Potassium 3.2 L, Chloride 102, Carbon Dioxide 18.3 L, Anion Gap 14, BUN 26 H, Creatinine 2.33 H, Estim Creat Clear Calc 20.51 L, Est GFR (MDRD) Non-Af 22 L, BUN/Creatinine Ratio 11.0, Glucose 155 H, Calcium 6.8 L, Magnesium 1.7, Total Bilirubin 0.27, AST 17, ALT 17, Alkaline Phosphatase 84, Total Protein 5.2 L, Albumin 3.1 L, Globulin 2.1 L, Albumin/Globulin Ratio 1.4 02/05/25 14:35: PT 15.9 H, INR 1.2, APTT 28.8, D-Dimer Quant (PE/DVT) < 0.27 L, Lactic Acid 2.9 H* 02/05/25 15:03: POC Glucose 173 H 02/05/25 15:46: Urine Color Yellow, Urine Clarity Clear, Urine pH 5.0, Ur Specific [place] 1.020, Urine Protein 100 H, Urine Glucose (UA) 1000 H, Urine Ketones Negative, Urine Occult Blood Negative, Urine Nitrite Negative, Urine Bilirubin Negative, Urine Urobilinogen Normal, Ur Leukocyte Esterase Negative, Urine RBC 0 SEEN, Urine WBC 0-5 SEEN, Ur Squamous Epith Cells 0 SEEN, Urine Bacteria 0 SEEN, Urine Mucus 0 SEEN 02/05/25 16:07: Troponin T Hi Sens 2 Hr 32 H Micro: Microbiology 02/05/25 13:07 Mucosa - Nose SARS-CoV-2, Influenza & RSV (PCR) - Final Imaging Radiology Impression Brain CT 02/05/25 14:50 IMPRESSION: 1. No evidence of intracranial hemorrhage or acute ischemia. 2. Changes of chronic microvascular ischemia and volume loss. Reading Location: [facility] Cervical Spine CT 02/05/25 14:50 IMPRESSION: DEGENERATIVE CHANGES OF THE CERVICAL SPINE. NO EVIDENCE OF SIGNIFICANT OSSEOUS CENTRAL CANAL OR NEURAL FORAMINAL STENOSIS. Reading Location: [facility] Chest X-Ray 02/05/25 14:55 IMPRESSION: Mild cardiac enlargement. Reading Location: [facility] Assessment & Plan Assessment/Plan (1) Syncope: PLAN: Plan # Syncope -Brief loss of consciousness while coughing with return to baseline - May have been secondary to hypotension which was suspected secondary to dehydration given SALVATORE and patient having URI symptoms and poor p.o. intake -BP improving with IV fluids -Due to low blood pressure in the ED orthostats not obtained -CT head no acute process -Will monitor on telemetry -Given she did have full loss of consciousness and has a slight elevation in troponin at 35 will also obtain echocardiogram though likely lower yield # Generalized weakness and diarrhea and nausea -Suspect patient has underlying viral illness given sick contacts, weakness, cough and fatigue with diarrhea and nausea and nasal congestion -Patient has had poor p.o. intake -Chest x-ray with no pneumonia -Will check respiratory panel -Stool studies -IV fluids -Supportive care -Did have recent TSH of 4.4 so will not repeat and will continue home Synthroid -Slightly low calcium and magnesium on the lower limit of normal, will replace both # SALVATORE -Creatinine 2.33 up from 1.18 2-1/2 months ago -Patient does admit to poor p.o. intake in setting of URI-like symptoms in addition to diarrhea and nausea -IV fluids -If not improving tomorrow can consider further workup though suspect this will improve with IV fluid #Hypokalemia -Replace -Repeat in the AM #Hypertension - Patient hypotensive in the ED so we will hold losartan and hold Coreg #Hx of CAD -w/ previous stenting -Continue home Eliquis and Brilinta, holding home ARB and beta-leo due to hypotension #GERD -Continue PPI #Type 2 diabetes mellitus -Glucose checks and sliding scale insulin -Will continue long-acting insulin though at lower dose given patient's poor p.o. intake and can uptitrate as tolerated #Hypothyroidism -Continue Synthroid #Gout -Continue home allopurinol #Paroxysmal Atrial Fibrillation -Rate control: Patient takes carvedilol at baseline however given hypotension this be held -Anticoagulation: Continue Eliquis #Hx bipolar disorder -On home Depakote, will continue #DVT ppx: Not indicated already on full dose anticoagulation Carol Petty MD Charges/Coding Visit Charges Inpatient E&M: 54583 Init Hosp L2
--- NOTE | 2025-02-05 18:02 | ECHOCS_ITS ---
Reason For Study Reason For Study: Syncope Procedure This was a 2D Doppler, Color Flow transthoracic echocardiogram. The study was technically difficult. Contrast injection was performed. Exam performed portable in patient room. Left Ventricle Normal LV size. Left ventricular systolic function is normal. The left ventricular ejection fraction is 55 %. No regional wall motion abnormalities noted. Right Ventricle Normal RV size. Normal systolic function. Mitral Valve Normal mitral valve. Tricuspid Valve Normal tricuspid valve. Aortic Valve Trisinus/trileaflet aortic valve. Peak aortic valve gradient 16.7 mmHg. Mean aortic valve gradient 8 mmHg. Great Vessels Normal aortic root. Pericardium/Pleural No pericardial effusion. Medication Diluted definity 3ml given slow IV push to enhance endocardial definition. MMode/2D Measurements & Calculations LVOT diam: 2.0 cm Ao root diam: 3.2 cm LAV(MOD- bp): 30.7 ml LVOT area: 3.2 cm2 LAV(MOD- bp) Indexed: 18.4 ml/m2 LAV(MOD- sp2): 35.4 ml LAV(MOD- sp4): 25.3 ml LVAd ap4: 31.5 cm2 SV(MOD-sp4): 64.0 ml SV(sp4- el): 67.3 ml LVLd ap4: 7.6 cm SI(MOD-sp4): 38.4 ml/m2 EDV(MOD-sp4): 106.8 ml EDV(sp4-el): 110.5 ml LVAs ap4: 18.1 cm2 LVLs ap4: 6.4 cm ESV(MOD-sp4): 42.8 ml ESV(sp4-el): 43.2 ml EF(MOD-sp4): 59.9 % EF(sp4-el): 60.9 % LA A4 area: 12.5 cm2 LA dimension(2D): 3.4 cm RA A4 area: 12.5 cm2 Time Measurements MV dec time: 0.17 sec Doppler Measurements & Calculations MV E max ralf: 102.3 cm/sec Lat Peak E' Ralf: 8.2 cm/sec Med Peak E' Ralf: 12.5 cm/sec MV A max ralf: 93.3 cm/sec E/E' lat: 12.5 E/E' med: 8.2 MV E/A: 1.1 MV V2 max: 123.1 cm/sec MV P1/2t max ralf: 123.4 cm/sec Ao V2 max: 204.3 cm/sec MV max P.1 mmHg MV P1/2t: 66.5 msec Ao max P.7 mmHg MV V2 mean: 64.3 cm/sec Ao V2 mean: 139.2 cm/sec MV mean P.0 mmHg MV dec slope: 543.7 cm/sec2 Ao mean P.8 mmHg MV V2 VTI: 39.5 cm MVA(P1/2t): 3.3 cm2 Ao V2 VTI: 44.5 cm AV (velocity ratio): 0.57 MVA(VTI): 2.1 cm2 LUCIAN(I,D): 1.8 cm2 LUCIAN(V,D): 1.8 cm2 LV V1 max: 111.2 cm/sec SV(LVOT): 82.3 ml PA V2 max: 106.9 cm/sec LV V1 max P.0 mmHg PA V2 mean: 75.8 cm/sec LV V1 mean P.8 mmHg LV V1 mean: 78.6 cm/sec LV V1 VTI: 25.4 cm ECHO/Echo Complete W/ Contrast Interpretation Summary Normal LV size. Left ventricular systolic function is normal. The left ventricular ejection fraction is 55 %. Mean aortic valve gradient 8 mmHg. Contrast injection was performed. Ordering Physician: Carol Petty Performed By: Tru Garrett RCS
[2025-02-05] MEDS: 0.9% Normal Saline (1000mL) 1,000 ML 50 ML IV (18:32)
[2025-02-05 18:48] LABS: Reflex Lactate? Y
[2025-02-05] MEDS: Calcium Gluconate IV 2 GM in 0.9% Normal Saline (100mL Bag) 100 ML IV (19:50)
[2025-02-05] MEDS: Magnesium Sulfate 2 GM in Dextrose 5%-Water (100mL Bag) 100 ML IV (19:50)
[2025-02-05] MEDS: 0.9% Normal Saline (250mL Bag) 250 ML 15 ML IV (19:50)
[2025-02-05] MEDS: 0.9% Saline Lock 10 ML Syringe IV (19:51)
--- OUTSIDE RECORDS SUMMARY | 2025-02-05 21:42 | XMS RPT_ITS | CCD ---
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 Name Role Phone NO REFERRING DR Unavailable Unavailable SHEETS, JAMEL C Unavailable Unavailable SHEETS, JAMEL C Unavailable Unavailable SHEETS, JAMEL C Unavailable Unavailable SHEETS, JAMEL C Unavailable Unavailable Yamila Hayden Unavailable Yamila Hayden Primary Care Provider Yamila Hayden Primary Care Provider Servando Clay Unavailable Unavailable Yamila Hayden Unavailable Unavailable Yamila Hayden Unavailable Unavailable Unknown, Referring Provider Unavailable Unav ailable Yamila Hayden Unavailable Unavailable Free, Text Entry Unavailable Unavailable Manocchio Yudy Unavailable Unavailable Pending Provider Unavailable Unavailable Unavailable Unavailable No, Physician Primary Care Provider Unavailabl e PARAIL, ANTON CHAN Admitting Unavaila ble NO, PHYSICIAN Primary Care Unavailable PARAIL, ANTON CHAN Attending Unavaila ble NO, PHYSICIAN Primary Care Unavailable PARAIL, ANTONELBERT CHAN Admitting Unavaila ble NO, PHYSICIAN Primary Care Unavailable PARAIL, ANTON CHAN Admitting Unavaila ble PARAIL, ANTON CHAN Attending Unavaila ble DEMARCUS FREY Attending Unavailable NO, PHYSICIAN Primary Care Unavailable DEMARCUS FREY Admitting Unavailable DEMARCUS FREY Attending Unavailable ADELINA FARLEY Referring Unavailable NO, PHYSICIAN Primary Care Unavailable PARAIL, ANTON SEEMA Admitting Unavaila ble PARAIL, ANTON SEEMA Attending Unavaila ble NO, PHYSICIAN Primary Care Unavailable PARAIL, ANTON SEEMA Attending Unavaila ble NO, PHYSICIAN Primary Care Unavailable PARAIL, ANTON SEEMA Admitting Unavaila ble PARAIL, ANTON SEEMA Referring Unavaila ble NO, PHYSICIAN Primary Care Unavailable PEPITO JOY Attending Unavailable Dr. Pat Bennett Primary Care Provider Dr. Pat Bennett Attending Provider [phone] Dr. Pat Bennett Referring Provider [phone] SILVIA Ulrich Attending Provider [phone] Octavio SILK SCREEN PRINTER, SILK SCREEN PRINTER-C Daina Attending Provider Dr. Adelina Farley Attending Provider Dr. Bravo Dominique Attending Provider Dr. Jonathan Polk Emergency Provider Dr. Carrillo Buckley Attending Provider Dr. Carrillo Buckley Admit Provider Dr. Carrillo Buckley Other Provider Dr. Franck Butler Attending Provider 1([facility] )[phone] Dr. Franck Butler Other Provider 1([facility])[phone] Dr. Gwendolyn Busby Other Provider Dr. Gwendolyn Busby Attending Provider Danny KRAMER, WILLIAMS-C Devi Attending Provider [phone] Dr. Pat Bennett Primary Care Provider Dr. Pat Bennett Referring Provider 1([facility]) Octavio KRAMER, SILK SCREEN PRINTER-C Daina Referring Provider Dr. Gwendolyn Busby Referring Provider 1([facility])[phone] Jax Ford Attending Provider Alice, PA Kelsi Attending Provider Unavailab Dr. Pat Mccoy Primary Care Provider Dr. Pat Bennett Referring Provider 1([facility])[phone] SILVIA Ulrich Attending Provider 1([facility])[phone] SERVANDO CLAY Attending Unavailable Pending, Provider Primary Care Unavailable THOMAE, SERVANDO Referring Unavailable Pending, Provider Primary Care Unavailable THOMCRAIG, SERVANDO Referring Unavailable THOMAERHYSE Attending Unavailable Dr. Pat Bennett Primary Care Provider Dr. Pat Bennett Referring Provider [phone] TAMMY Marion Attending Provider Unavailab Dr. Adelina Flores Attending Provider [phone] SILVIA Ulrich Attending Provider Dr. Pat Bennett Primary Care Provider Dr. Pat Bennett Referring Provider [phone] Dr. Pat Bennett Attending Provider [phone] Dr. Pat Bennett Primary Care Provider Dr. Pat Bennett Attending Provider [phone] Dr. Sanju Hernandez Emergency Provider Dr. Daljit Mg Admit Provider Dr. Daljit Mg Other Provider Dr. Dior Alva Other Provider Dr. Carrillo Buckley Attending Provider Dr. Carrillo Buckley Other Provider Dr. Dior Alva Attending Provider Dr. Franck Butler Attending Provider Dr. Bassem Schwartz Attending Provider Unavailable Dr. Bassem Schwartz Other Provider Unavailable Yudy Bridges Unavailable Unavailabl e Pending, Provider Primary Care Unavailable BilYudy drummond Attending Unavailabl e Pending, Provider Primary Care Unavailable PCP, Pt States None Referring Unavailable Servando Clay Attending Unavailable Dr. Pat Bennett Primary Care Provider Dr. Bassem Schwartz Referring Provider Unavailable Dr. Pat Bennett Referring Provider [phone] Danny KRAMER, SILK SCREEN PRINTER-Marlen Bellamy Attending Provider [phone] Dr. Pat Bennett Primary Care Provider Dr. Sanju Hernandez Emergency Provider Dr. Daljit Mg Admit Provider Dr. Daljit Mg Other Provider Dr. Doir Alva Other Provider Dr. Carrillo Buckley Attending Provider Dr. Carrillo Buckley Other Provider Dr. Dior Alva Attending Provider Dr. Bassem Schwartz Referring Provider Unavailable Dr. Franck Butler Attending Provider Dr. Bassem Schwartz Attending Provider Unavailable Dr. Bassem Schwartz Other Provider Unavailable Dr. Pat Bennett Referring Provider Delgado SILK SCREEN PRINTER, SILK SCREEN PRINTER-C Devi Attending Provider Dr. Pat Bennett Primary Care Provider Dr. Sanju Hernandez Emergency Provider Dr. Daljit Mg Admit Provider Dr. Daljit Mg Other Provider Dr. Dior Alva Other Provider Dr. Carrillo Buckley Attending Provider Dr. Carrillo Buckley Other Provider Dr. Pat Bennett Referring Provider Delgado SILK SCREEN PRINTER, SILK SCREEN PRINTER-C Devi Primary Care Provider Delgado SILK SCREEN PRINTER, SILK SCREEN PRINTER-C Devi Referring Provider Dr. Seven Garcia Attending Provider Delgado SILK SCREEN PRINTER, SILK SCREEN PRINTER-C Devi Primary Care Provider Delgado SILK SCREEN PRINTER, SILK SCREEN PRINTER-C Devi Referring Provider Dr. Seven Garcia Attending Provider Dr. Pat Bennett Referring Provider Delgado SILK SCREEN PRINTER, SILK SCREEN PRINTER-C Devi Attending Provider Delgado SILK SCREEN PRINTER, SILK SCREEN PRINTER-C Devi Primary Care Provider Delgado SILK SCREEN PRINTER, SILK SCREEN PRINTER-C Devi Referring Provider Dr. Denise Uribe Attending Provider Jojo, Dr. Denise Primary Care Provider TAMMY Belle Attending Provider Dr. Seven Garcia Attending Provider Danny SILK SCREEN PRINTER, SILK SCREEN PRINTER-C Devi Referring Provider [phone] Dr. Denise Uribe [...] Attending Provider Dr. Hernando Colón Attending Provider [phone] Dr. Denise Uribe MD Primary Care Provider [phone] Humaira Belle Attending Provider [phone] Humaira Belle Referring Provider [phone] Dr. Carrillo Handley MD Attending Provider [phone] Humaira Belle Other Provider [phone] Saranya LOPEZ, Dr. Leal Attending Provider Moreno LYNNE, Dr. Ott Emergency Provider Diamond DO, Dr. Luevano Admit Provider Unavail able Diamond DO, Dr. Luevano Other Provider Unavail able Forrest LOPEZ, Dr. Davie Tarango Other Provider Geetha LOPEZ, Dr. Harry Nance Attending Provider Rosalie LOPEZ, Dr. Jailyn Mendez Other Provider Rosalie LOPEZ, Dr. Jailyn Menedz Attending Provider Eldon LOPEZ, Dr. Villagomez Attending Provider LamEdwar DO, Dr. Luevano Referring Provider Unav allie Clayton MD, Dr. Davie Tarango Attending Provider Geetha LOPEZ, Dr. Harry Nance Referring Provider Manuel LOPEZ, Dr. Muhammad Attending Provider Geetha LOPEZ, Dr. Harry Nance Other Provider Jeffery LYNNE, Dr. Lemos Emergency Provider Rosalie LOPEZ, Dr. Jailyn Mendez Admit Provider Rosalie LOPEZ, Dr. Jailyn Mendez Referring Provider Lena LYNNE, Dr. Bellamy Attending Provider Lena LYNNE, Dr. Bellamy Other Provider Jojo LOPEZ, Dr. Walker Attending Provider Jojo LOPEZ, Dr. Walker Referring Provider Jojo LOPEZ, Dr. Walker Primary Care Provider Dr. Jb Jackson MD Attending Provider Dr. Carrillo Lenz DO Emergency Provider Rosalie LOPEZ, Dr. Jailyn Mendez Attending Provider Jojo LOPEZ, Dr. Walker Primary Care Provider Rosalie LOPEZ, Dr. Jailyn Mendez Admit Provider Rosalie LOPEZ, Dr. Jailyn Mendez Other Provider Carrie LOPEZ, Dr. Juárez Other Provider Efren LOPEZ, Dr. Luevano Attending Provider Unavailemelina Schwartz MD, Dr. Luevano Other Provider Unavailable Carrie LOPEZ, Dr. Juárez Attending Provider Efren LOPEZ, Dr. Luevano Referring Provider Unavailemelina Hernandez MD, Dr. Bills Emergency Provider Jojo LOPEZ, Dr. Walker Primary Care Provider [phone] David LOPEZ, Dr. Bills Attending Provider [phone] Jojo LOPEZ, Dr. Walker Referring Provider Serg SILK SCREEN PRINTER-C, Seth Attending Provider [phone] Serg SILK SCREEN PRINTER-C, Seth Referring Provider [phone] Bassem Diamond Admitting Unavailable Bassem Diamond Consulting Unavailable Morrill, Denise Primary Care Unavailable Jailyn Wiggins Attending Unavailable Davie Clayton Consulting Unavailable Jailyn Wiggins Consulting Unavailable Jb Jackson Attending Unavailable Jojo, Denise Primary Care Unavailable Franck Butler Consulting Unavailable Bassem Schwartz Attending Unavailable Rosalie Jailyn Vanessa Admitting Unavailable Rosalie Jailyn L Consulting Unavailable Bassem Schwartz Consulting Unavailable Franck Butler Attending Unavailable Bassem Schwartz Referring Unavailable Jojo, Denise Primary Care Unavailable Devi Paredes Attending Unavailable White, Jailyn L Referring Unavailable White, Jailyn L Consulting Unavailable White, Jailyn L Admitting Unavailable Devi Paredes Consulting Unavailable Jojo, Denise Primary Care Unavailable Seth Ulrich Attending Unavailable Seth Ulrich Referring Unavailable Morrill, Denise Attending Unavailable Jojo, Denise Referring Unavailable Morrill, Denise Primary Care Unavailable Morrill, Denise Attending Unavailable Morrill, Denise Referring Unavailable Jojo, Denise Primary Care Unavailable Davie Clayton Attending Unavailable Harry Iniguez Referring Unavailable Bassem Diamond Attending Unavailable Jojo, Denise Primary Care Unavailable Mel Beaver Attending Unavailabl e Humaira Belle Referring Unavail able Humaira Belle Consulting Unavail able Harry Iniguez Attending Unavailable Harry Iniguez Consulting Unavailable Morrill, Denise Primary Care Unavailable Seth Ulrich Attending Unavailable Jojo, Denise Referring Unavailable Desiree Penny Attending Unavailable Morrill, Denise Primary Care Unavailable Jojo, Denise Referring Unavailable Jojo, Denise Attending Unavailable Jojo, Denise Primary Care Unavailable Jojo, Denise Referring Unavailable Morrill, Denise Primary Care Unavailable Jojo, Denise Referring Unavailable Humaira Belle Attending Unavail able Jojo, Denise Primary Care Unavailable Jojo, Denise Referring Unavailable Seth Ulrich Attending Unavailable Jojo, Denise Attending Unavailable Jojo, Denise Referring Unavailable Ojjo, Denise Primary Care Unavailable Bassem Diamond Referring Unavailable Morrill, Denise Primary Care Unavailable Hernando Colón Attending Unavailable Jojo, Denise Primary Care Unavailable Jb Marcelino Attending Unavailable Humaira Belle Referring Unavail able Morrill, Denise Primary Care Unavailable Sanju Hernandez Attending Unavailable Jojo, Denise Primary Care Unavailable Seth Ulrich Referring Unavailable Seth Ulrich Attending Unavailable Jojo, Denise Primary Care Unavailable Jamaal Velasquez Referring Unavailable Jamaal Velasquez Attending Unavailable Jojo, Denise Primary Care Unavailable Humaira Belle Attending Unavail able Humaira Belle Referring Unavail able Franck Butler Consulting Unavailable Morrill, Denise Primary Care Unavailable White, Jailyn L Admitting Unavailable Bassem Schwartz Attending Unavailable White, Jailyn L Consulting Unavailable Jojo, Denise Primary Care Unavailable Devi Paredes Attending Unavailable White, Jailyn L Referring Unavailable White, Jailyn L Admitting Unavailable White, Jailyn L Consulting Unavailable Bassem Diamond Consulting Unavailable Bassem Diamond Admitting Unavailable Jojo, Denise Primary Care Unavailable Harry Iniguez Attending Unavailable Davie Clayton Consulting Unavailable White, Jailyn L Consulting Unavailable Desiree Penny Referring Unavailable Morrill, Denise Primary Care Unavailable Desiree Penny Attending Unavailable Ferullo, Desiree Referring Unavailable FerulloKarleneDesiree Attending Unavailable Jojo, Denise Primary Care Unavailable Carrillo Handley Attending Unavailable Jojo, Denise Primary Care Unavailable Humaira Belle Referring Unavail able Ferullo, Desiree Referring Unavailable Jojo, Denise Primary Care Unavailable Carrillo Handley Attending Unavailable Bassem Diamond Referring Unavailable Jojo, Denise Primary Care Unavailable Hernando Colón Attending Unavailable Jailyn Wiggins Attending Unavailable Jojo, Denise Primary Care Unavailable Humiara Belle Attending Unavail able Humaira Belle Referring Unavail able Jailyn Wiggins Attending Unavailable Morrill, Denise Primary Care Unavailable Robby Kirkpatrick Attending Unavailable Jojo LOPEZ, Dr. Walker Primary Care Physician David LOPEZ, Dr. Bills Attending Physician [phone] Dr. Sanju Hernandez MD Emergency Department Physici an Serg KRAMER-C, Seth [facility]ending [facility] Emergency Departmen t Physician Jovanny LOPEZ, Dr. Medina Admitting Physician Dr. Carol Petty MD Attending Physician Allergies Allergy Classification Reported Allergen(s) Allergy Type Date of Onset Reaction(s) Facility (1 source) pantoprazole; 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: [PROTONIX] Drug Allergy [facility] Repository (20 sources) tomato allergenic extract; 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: [TOMATO] Drug Allergy 04-18-20 18 Itching [facility] Repository (20 sources) DULoxetine Drug Allergy 02-27-20 18 [facility] Work Phone: (11 sources) DULoxetine; 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: [Cymbalta] Drug Allergy Hypertension [facility] Work Phone: (9 sources) Tomatoes Allergy to substance (finding) [facility] Work Phone: (20 sources) DULoxetine; 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: [DULOXETINE] Drug Allergy 02-27-20 Hives, Other (See Comments), Itching, Unknown [facility] (8 sources) tomato allergenic extract; 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: [TOMATO (SOLANUM LYCOPERSICUM)] Drug Allergy 11-27-19 Itching [facility] (8 sources) Other; 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: [OTHER] Propensity to adverse reactions 04-18-20 Unknown [facility] (20 sources) Isosorbide; 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: [isosorbide] Drug Allergy 12-11-19 Headache and chest pain, Other [facility] (20 sources) Adhesive Tape; 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: [adhesive tape] Propensity to adverse reactions 03-28-20 Rash [facility] (15 sources) diphenhydrAMINE Drug Allergy 11-18-19 other [facility] (2 sources) ozempic Allergy to substance 11-18-19 Diarrhea [facility] (13 sources) semaglutide Drug Allergy 03-31-20 Diarrhea [facility] (8 sources) Environmental Allergies: Uncoded; 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: [Environmental Allergies: Uncoded] Allergy to substance 07-25-19 [facility] (1 source) diphenhydrAMINE Drug Allergy 01-07-20 [facility] Repository (1 source) DULoxetine Drug Allergy 01-07-20 [facility] Repository (1 source) semaglutide Drug allergy (disorder) 01-07-20 [facility] Repository Medications Current Medications Medication Drug Class(es) Dates Sig (Normalized) Sig (Original) amitriptyline hydrochloride 50 mg oral tablet (20 sources) Tricyclic Antidepressant Start: 07-11-2023 End: 01-24-2025 Start: 07-11-2023 End: 08-11-2023 Start: 07-11-2023 End: 08-11-2023 take 50 mg by mouth at bedtime Amitriptyline Active 50 MG PO AT BEDTIME August 11, 2023 3:35pm Blood-Glucose Meter (Onetouc h Verio Flex Start) [...] 5500-200 Unit-McG Po Tabs (6 sources) Start: 018 take 1 tablet by mouth once daily Vitamin D-Vitamin K (DOSOQUIN) 5500-200 UNIT-MCG Tab Indications: Vitamin D deficiency , Hypomagnesemia , Anemia, unspecified type 1 po q day 30 tablet 11 02/26/2018 Active 0.5 ml dulaglutide 1.5 mg/ml auto-injector (19 sources) GLP-1 Receptor Agonist Start: 025 Start: 03-31-2023 End: 07-11-2023 Start: 03-31-2023 End: 07-11-2023 Start: 03-31-2023 End: 07-11-2023 Dulaglutide (Trulicity) 0.75 mg/0.5 mL pen injector Discontinued 0.75 MG SC EVERY WEEK March 31, 2023 1:00am July 11, 2023 4:15pm Elastic Bandages & Supports (WRIST SPLINT ELASTIC/LARGE-XL) Misc (20 sources) Start: 02-26-2018 Elastic Bandag es & Supports (WRIST SPLINT ELASTIC/LARGE-XL) Misc Indications: [...] unspecified type , 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 , 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) , Hypertension, unspecified type , Gastroesophageal reflux disease, esophagitis presence not specified , Hypothyroidism, unspecified type , Type II diabetes mellitus with neurological manifestations , Lower abdominal pain B/L wrist splints for B/L CTS 2 Each 02/26/2018 Active Flash Glucose Sensor (Freest yle Marilyn 14 Day Sensor) kit (19 sources) Start: 07-26-2021 Flash Glucose Sensor (Freestyle Marilyn 14 Day Sensor) kit Active 0 .ROUTE .MEDSUPPLY July 26, 2021 4:22pm As directed Start: 07-26-2021 Flash Glucose Sensor (Freestyle Marilyn 14 Day Sensor) kit Active 0 .ROUTE .MEDSUPPLY July 26, 2021 12:00am As directed Start: 07-26-2021 Flash Glucose Sensor (Freestyle Marilyn 14 Day Sensor) kit Active 0 .ROUTE .MEDSUPPLY July 26, 2021 1:00am As directed furosemide 40 mg oral tablet (2 sources) Loop Diuretic Start: 10-12-2021 take 40 mg by mouth once daily Furosemide Active 40 MG PO .COMPLEX October 12, 2021 4:16pm 40 mg PO daily for 3 days; Homeopathic Products (ALLERGY MEDICINE PO) (7 sources) Homeopathic Products (ALLERGY MEDICINE PO) Take by mouth daily as needed. 0 Active insulin glargine,hum.rec.a nlog (LANTUS SOLOSTAR U-100 INSULIN SUBQ) (5 sources) inject 40 [IU] by subcutaneous injection at bedtime insulin glargine,hum.rec.a nlog (LANTUS SOLOSTAR U-100 INSULIN SUBQ) Inject 40 Units under the skin at bedtime . 0 Active 3 ml insulin lispro 100 unt/ml pen injector (20 sources) Insulin Analog Start: 02-20-2023 End: 06-28-2023 Insulin Lispro (Humalog Kwikpen Insulin) 100 unit/mL insulin pen Discontinued 10 UNIT SC THREE TIMES A DAY June 26, 2023 11:00am June 28, 2023 5:01pm Start: 02-07-2022 End: 02-05-2025 Start: 02-07-2022 End: 06-28-2023 Start: 02-07-2022 End: 10-02-2023 Insulin Lispro (Humalog Kwik pen Insulin) 100 unit/mL insulin pen Discontinued 5 UNIT SC THREE TIMES A DAY February 21, 2022 8:18am August 04, 2022 9:26pm HumaLOG 100 unit s/mL subcutaneous solution Quantity: 0 Refills: 0 Ordered: 14-Mar-2022 Hauenstein, Safia Generic Substitution Allowed levothyroxine sodium 0.112 m g oral tablet (20 sources) l-Thyroxine Start: 11-07-2019 End: 01-24-2025 Start: 10-16-2019 End: 10-16-2019 take 50 ug by mouth once daily 50 mcg, Oral, DAILY, Fi rst dose on Mon10/16/19 at 0600, Until Discontinued take 1 capsule by mo [facility] once daily levothyroxine 112 mcg (0.112 mg) oral capsule ; 1 cap(s) orally once a day Quantity: 0 Refills: 0 Ordered: 14-Mar-2022 Hauenstein, Safia Generic Substitution Allowed levothyroxine 50 MCG Tab tablet Take 112 mcg by mouth daily. 0 Active take [facility] once daily levothyroxine 50 MCG Tab tablet [...] vomiting Quantity: 6 Refills: 0 Ordered: 15-Aug-2022 Yudy Bridges Start: 15-Aug-2022 End: 16-Aug-2022 Generic Substitution [...] tongue 30 tablet 0 05/03/2018 03/04/2019 Discontinued Vitamin D-Vitamin K (DOSOQUIN) 5500-200 UNIT-MCG Tab (20 sources) Start: 02-26-2018 take 1 tablet by mouth once daily Vitamin D-Vitamin K (DOSOQUIN) 5500-200 UNIT-MCG Tab Indications: Vitamin D deficiency , Hypomagnesemia , Anemia, unspecified type 1 po q day 30 tablet 11 02/26/2018 Active Wrist Splint Elastic/Large-Xl Misc (6 sources) Start: 02-26-2018 Elastic Bandag es & Supports (WRIST SPLINT ELASTIC/LARGE-XL) Misc Indications: [...] unspecified type , 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 , [facility] current use of non-steroidal anti-inflammatories (NSAID) , Hypertension, unspecified type , Gastroesophageal reflux disease, esophagitis presence not specified , Hypothyroidism, unspecified type , Type II diabetes mellitus with neurological manifestations , Lower abdominal pain B/L wrist splints for B/L CTS 2 Each 11 02/26/2018 Active (20 sources) Start: 04-16-2024 Start: 03-21-2024 Start: 02-27-2024 Start: 12-05-2023 End: 01-06-2025 Start: 12-05-2023 Start: 12-05-2023 End: 03-20-2024 Start: [...] (NORCO) 5-325 MG per tablet 1-2 tablet [id number] 200 actuat albuter ol 0.09 mg/actuat metered dose inhaler (20 sources) beta2-Adrenergic Agonist Start: 08-31-2020 End: 09-05-2024 Start: 08-31-2020 End: 12-20-2021 Start: 08-31-2020 End: 12-20-2021 take 1 puff(s) by inhalation every six hours Albuterol Sulfate Discontinued 2 PUFF INHALATION EVERY 6 HOURS 8.5 October 27, 2021 12:29pm December 20, 2021 2:14pm albuterol 90 mcg /inh inhalation aerosol with adapter Quantity: 0 Refills: 0 Ordered: 14-Mar-2022 Cornelio, Safia Generic Substitution Allowed take 2 puff(s) by [...] 90 MCG /ACT AERS Refills: 0 Active allopurinol 100 mg oral tabl et (20 sources) Xanthine Oxidase Inhibitor Start: 03-04-2020 End: 03-18-2024 Start: 10-16-2019 End: 10-16-2019 take 100 mg by mouth once daily 100 mg, Oral, DAILY, First dose on Mon10/16/19 at 0045, Until Discontinued allopurinol 100 mg oral tablet ; orally once a day Quantity: 0 Refills: 0 Ordered: 14-Mar-2022 Cornelio, Safia Generic Substitution Allowed amLODIPine 2.5 mg oral table t (20 sources) Dihydropyridine Calcium Channel Leo Start: 04-15-2020 End: 01-14-2022 amLODIPine Besyl ate [...] 2021 12:00am January 14, 2022 1:06pm amylase [id number] unt / lipase [id number] unt / protease 41830 unt delayed release oral capsule (20 sources) Start: 07-16-2020 End: 07-31-2020 Start: 07-16-2020 End: 07-31-2020 Start: 02-20-2020 End: 07-31-2020 take [id number] capsules by mouth four times daily at mealtime Nirzjm-[id number]-Fspewyd (Creon) 24,000-76,000 -120,000 unit capsule,delayed release(DR/EC) Discontinued 2 CAP PO .qid July 16, 2020 1:00am July 31, 2020 1:07pm administer with meals and/or snacks amylases [id number] unt / endopeptidases 32309 unt / lipase 37687 unt delayed release oral capsule (1 source) Start: 02-20-2020 take 2 capsules by mouth four times daily Creon [id number] UNIT Oral Capsule Delayed Release Particles TAKE 2 CAPSULE 4 times daily Quantity: 240 Refills: 11 Rhys Clay DOe Start : 20-Feb-2020 Active apixaban 5 mg oral tablet (20 sources) Factor Xa Inhibitor Start: 08-19-2020 End: 09-11-2024 take 1 tablet by mouth twice renan ly Eliquis 2.5 mg oral tablet ; 1 tab(s) orally 2 times a day Quantity: 0 Refills: 0 Ordered: 14-Mar-2022 Safia Grimes Generic Substitution Allowed Eliquis 2.5 MG O ral Tablet Quantity: 0 Refills: 0 Ordered: 06-Jan-2022 DO Active ascorbic acid 60 mg / beta carotene 5000 unt / copper sulfate 40 mg / dl-alpha tocopheryl acetate 30 unt / sodium selenite 0.04 mg / zinc oxide 40 mg oral tablet (1 source) Vitamin C Senior Multivita min Plus TABS Refills: 0 DO Active aspirin 81 mg delayed release oral tablet (20 sources) Platelet Aggregation Inhibitor, Nonsteroidal Anti-inflammatory Drug Start: 02-08-2021 End: 07-26-2021 Start: 03-11-2020 End: 08-19-2020 Aspirin 81 MG TA BS Quantity: 0 Refills: 0 Ordered: 17-Mar-2020 DO Active Aspirin 81 MG TA BS Refills: 0 DO Active atorvastatin 80 mg oral tabl et (20 sources) HMG-CoA Reductase Inhibitor Start: 03-04-2020 End: 03-11-2020 Start: 02-28-2019 End: 09-03-2024 Start: 02-28-2019 take 1 tablet by dale th once daily Atorvastatin Calcium 20 MG Oral Tablet Take 1 tablet by mouth daily Quantity: 90 Refills: 1 Yamila Hayden MD Start : 28-Feb-2019 Active 10 ml atropine sulfate 0.1 mg/ml [...] 1 TABLET PO THREE TIMES A DAY 09 12July 03, 2021 6:40pm July 26, 2021 2:46pm Beclomethasone Dipropionate (15 sources) Corticosteroid Start: 11-17-2022 End: 01-24-2023 Start: [...] lucose Monitoring) kit Discontinued 0 .ROUTE .MEDSUPPLY August 31, 2020 12:00am September 03, 2020 8:22am Twice daily as directed 30 ml bupivacaine hydrochloride 5 mg/ml injection (1 source) Amide Local Anesthetic Start: 01-30-2020 End: 01-30-2020 bupivacaine (PF) (MARCAINE) 0.5 % injection carvedilol 6.25 mg oral tablet (20 sources) alpha-Adrenergic Leo, beta-Adrenergic Leo Start: 09-18-2020 End: 06-06-2024 Start: 03-11-2020 End: 09-18-2020 Cholecalciferol (4 sources) Vitamin D Vitamin D CAPS R efills: 0 DO Active Vitamin D CAPS R efills: 0 Active clopidogrel 75 mg oral table t (20 sources) [id number] Platelet Inhibitor Start: 04-15-2020 End: 05-13-2020 colestipol hydrochloride 100 0 mg oral tablet (20 sources) Bile Acid Sequestrant Start: 10-03-2019 End: 09-03-2024 take 2 tablets by mouth twice da herrera colestipol 1 g oral tablet ; 2 tab(s) orally 2 times a day Quantity: 0 Refills: 0 Ordered: 14-Mar-2022 Hagabriellanstein, Safia Generic Substitution Allowed take 2 tablets by mouth twice da herrera COLESTIPOL HCL PO Take 2 tablets by mouth 2 times daily. 0 Active dapagliflozin 10 mg oral tab let (20 sources) Sodium-Glucose Cotransporter 2 Inhibitor Start: 08-17-2022 End: 02-19-2024 dicyclomine hydrochloride 10 mg oral capsule (20 sources) Anticholinergic Start: 07-31-2020 End: 02-08-2021 diphenhydrAMINE hydrochlorid e 25 mg oral capsule (18 sources) Histamine-1 Receptor Antagonist Start: 09-15-2022 End: [...] (3 sources) Dosoquin TABS Refills: 0 Active doxycycline hyclate 100 mg oral capsule (4 sources) Tetracycline-class Drug Start: 09-19-2024 End: 11-15-2024 [id number] 0.3 ml EPINEPHrine 1 mg/ml auto-injector (16 sources) alpha-Adrenergic Agonist, beta-Adrenergic Agonist, Catecholamine Start: 09-15-2022 End: 07-11-2023 ergocalciferol 1.25 mg oral capsule (17 sources) Provitamin D2 Compound Start: 08-17-2022 End: 07-11-2023 escitalopram 10 mg oral tablet (20 sources) Serotonin Reuptake Inhibitor Start: 07-26-2021 End: 07-11-2023 Start: 07-26-2021 End: 07-11-2023 take 2 tablets by mouth once daily Escitalopram Oxalate (Lexapro) 10 mg tablet Discontinued 20 MG PO DAILY August 04, 2022 9:26pm July 11, 2023 3:41pm take 1 tablet by dale once daily Lexapro 20 mg oral tablet ; 1 tab(s) orally once a day Quantity: 0 Refills: 0 Ordered: 14-Mar-2022 Hauenstein Safia Generic Substitution Allowed Lexapro 20 MG Or al Tablet Quantity: 0 Refills: 0 Ordered: 06-Jan-2022 DO Active ferrous sulfate 324 mg delay ed release oral tablet (17 sources) Start: 08-17-2022 End: 12-05-2023 fluconazole 150 mg oral tabl et (20 sources) Azole Antifungal Start: 12-02-2024 End: 02-05-2025 Start: 03-28-2022 End: 07-11-2023 Start: 12-10-2021 End: 01-14-2022 gabapentin 600 mg oral table t (20 sources) Anti-epileptic Agent Start: 11-29-2023 End: 11-15-2024 Start: 11-07-2021 End: 11-24-2023 Start: 03-04-2020 End: [...] day Quantity: 0 Refills: 0 Ordered: 14-Mar-2022 Hakimberly, Safia Generic Substitution Allowed take 1 tablet by dale th three times daily gabapentin (NEURONTIN) 600 MG tablet Take 600 mg by mouth 3 (three) times a day * . 0 Active take 2 tablets by mo wyh three times daily gabapentin 100 MG Cap capsule Take 300 mg by mouth 2 times daily. 2 tabs TID 0 Active 2 ml gentamicin 40 mg/ml injection (1 [...] 28-Feb-2019 Active take 1 capsule by mo ut once daily triamterene-hydrochlorothiazide (DYAZIDE) 37.5-25 mg per capsule Take 1 capsule by mouth daily . 0 Active hydrOXYzine hydrochloride 25 mg oral tablet (20 sources) Antihistamine Start: 03-04-2020 End: 07-26-2021 Start: 11-28-2019 take 1 tablet by dale th every four to six hours as needed [...] 25 mg by mouth. 0 05/03/2018 Active icosapent ethyl 1000 mg oral capsule (18 sources) Start: 12-06-2023 End: 10-07-2024 3 ml insulin aspart, human 1 00 unt/ml pen injector (20 sources) Insulin Analog Start: 02-07-2022 End: 02-07-2022 [...] January 18, 2023 10:44am Start: 02-09-2022 End: 12-16-2024 Start: 02-09-2022 End: 08-04-2022 Insulin Glargine (Lantus [...] bedtime) Quantity: 0 Refills: 0 Ordered: 14-Mar-2022 Allytein, Safia Generic Substitution Allowed inject 40 [IU] by [...] UNIT SC AT BEDTIME December 20, 2021 2:13pm February 07, 2022 1:41pm Start: 12-20-2021 Insulin Glargi ne-Yfgn Active 15 UNIT SC AT BEDTIME December 20, 2021 2:13pm Start: 11-10-2021 End: [...] AT BEDTIME 0 November 10, 2021 12:00am insulin lispro (HumaLOG) injection (1 source) Start: [...] l tablet (20 sources) Angiotensin 2 Receptor Leo Start: 05-25-2020 End: 10-21-2024 Start: 05-13-2020 End: 05-25-2020 Start: 05-13-2020 End: [...] tablet (20 sources) Antiemetic Start: 09-14-2023 End: 11-15-2024 Start: 09-14-2023 metFORMIN hydrochloride 500 mg oral tablet (20 sources) Biguanide Start: 09-30-2020 End: 01-07-2021 Start: 08-31-2020 End: 09-07-2020 Start: 05-13-2020 End: 07-31-2020 Start: 05-13-2020 End: 07-31-2020 take 1000 mg by mouth twice daily Metformin Discontinued 1000 MG PO TWICE A DAY May 13, 2020 1:00am July 31, 2020 1:09pm Start: 10-21-2019 take 2 tablets by [facility] twice daily metFORMIN HCl ER 500 MG Oral Tablet Extended Release 24 Hour TAKE 2 TABLET Twice daily Quantity: 360 Refills: 0 Ordered: 28-May-2020 Yamila Hayden MD Start : 21-Oct-2019 Active Start: 10-21-2019 take 4 tablets by mo [facility] once daily metFORMIN HCl ER 500 [...] Dye administration. take 1 tablet by dale twice daily metformin 1000 MG Tab tablet Take 1,000 mg by mouth 2 times daily. 0 Active metoprolol tartrate 50 mg or al tablet (20 sources) beta-Adrenergic Leo Start: 03-04-2020 End: 03-11-2020 Start: 11-27-2019 take [...] Start: 08-07-2019 take 0.5 tablet by m out twice daily metoprolol 50 MG tab regular [...] 01-Jan-2020 Active montelukast 10 mg oral tablet (13 sources) Leukotriene Receptor Antagonist Start: 01-24-2023 End: [...] End: 08-14-2023 Start: 10-27-2021 End: 08-14-2023 Nystatin (Nyamy) 100,000 un it/gram powder Active 1 APPLIC [...] 2020 12:00am November 10, 2020 2:58pm Nystatin [id number] UNIT/GM External Powder APPLY 2-3 TIMES DAILY TO AFFECTED AREAS Quantity: 1 Refills: 1 Ordered: 07-Apr-2020 Yamila Hayden MD Active Nystatin [id number] UNIT/GM External Powder APPLY 2-3 TIMES DAILY TO AFFECTED AREAS Quantity: 1 Refills: 1 Yamila Hayden MD 15 GM Bottle Nystatin [id number] UNIT/GM External Cream APPLY 2-3 TIMES DAILY [...] 11-17-2022 End: 01-24-2023 Start: 09-15-2022 End: 09-27-2022 RABEprazole sodium 20 mg del ayed release oral tablet (18 sources) Proton Pump Inhibitor Start: 07-24-2024 End: 12-17-2024 0.25 mg, 0.5 mg dose 1.5 ml [...] unspecified type , 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 , 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) , Hypertension, unspecified type , Gastroesophageal reflux disease, esophagitis presence not specified , Hypothyroidism, unspecified type , Type II diabetes mellitus with neurological manifestations , Lower abdominal pain 1 po bid PRN 60 tablet 11 02/26/2018 03/04/2019 Discontinued ticagrelor 90 mg oral tablet (20 sources) Start: 03-11-2020 End: 08-21-2024 tiZANidine 2 mg oral tablet (20 sources) [...] Mood Stabilizer, Anti-epileptic Agent Start: 11-07-2019 End: 11-12-2024 Start: 10-16-2019 End: 10-16-2019 take 125 mg by mouth twice daily 125 mg, Oral, 2 TIMES DAILY, First dose on Mon10/16/19 at 0045, Until Discontinued Patients med from home. Do not crush. take 1 tablet by dale th three times daily divalproex sodium 125 mg oral delayed release tablet ; 1 tab(s) orally 3 times a day Quantity: 0 Refills: 0 [facility] divalproex [address] tablet EC/DR Take 125 mg by mouth. 0 Active varenicline 1 mg oral tablet (10 sources) Partial Cholinergic Nicotinic Agonist Start: 04-02-2023 End: 10-02-2023 Start: 01-24-2023 End: 04-02-2023 Varenicline (Chantix Starting ) 0.5 mg (11)- 1 mg (42) tablets,dose pack (4 sources) Start: 01-24-2023 End: 04-02-2023 take 1 tablet by mouth once Varenicline (Chantix Starting ) 0.5 mg (11)- 1 mg (42) tablets,dose pack Discontinued 0 PO per package directions January 24, 2023 12:00am April 02, 2023 7:21pm PO PER PKG DIR Start: 01-24-2023 End: 04-02-2023 take 1 tablet by mouth once Varenicline (Chantix Start Box) 0.5 mg (11)- 1 mg (42) [...] without obstruction or gangrene; 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: [Hernia] Episodic Abdominal pain (20 sources) Lower abdominal pain; Translations: [Abdominal pain] Onset: 8 02-26-2018 Episodic Acute and unspecified renal failure (20 sources) Acute renal failure syndrome; Translations: [Acute kidney failure, unspecified] Onset: 5 Episodic Acute and unspecified renal failure (6 sources) Acute injury of kidney; Translations: [SALVATORE (acute kidney injury)] Onset: 0 10-16-2019 Acute bronchitis (20 sources) Acute bronchiolitis; Translations: [Acute bronchiolitis, unspecified] 11-17-2022 Episodic Administrative/social admission (16 sources) Persons encountering health services in other [...] unspecified] Onset: 5 Chronic Chronic kidney disease (2 sources) Chronic kidney disease; Translations: [Chronic kidney disease, stage 3b] Onset: 4 Chronic obstructive pulmonary disease and bronchiectasis (1 source) Chronic obstructive pulmonary disease with (acute) exacerbation; Translations: [COPD WITH ACUTE EXACERBA] Onset: 7 Chronic Conditions associated with dizziness or vertigo (20 sources) Dizziness and giddiness; Translations: [Vertigo] Onset: 7 Episodic Coronary atherosclerosis and other heart disease (20 sources) Coronary arteriosclerosis in [place] artery; Translations: [Coronary arteriosclerosis] Onset: 1 Chronic Deficiency and other anemia (20 sources) Anemia; Translations: [Anemia, unspecified] Onset: 9 03-04-2019 Episodic Deficiency and other anemia (14 sources) Chronic anemia; Translations: [Anemia, unspecified] 06-26-2024 Episodic Diabetes mellitus with complications (20 sources) [...] 01-07-2021 Episodic Diseases of mouth; excluding dental (20 sources) Sialoadenitis of the submandibular gland; Translations: [...] or abscess w/o bleeding] Onset: 2 Chronic E Codes: Adverse effects of medical drugs (11 sources) Adverse reaction to drug; Translations: [Adverse effect of unspecified drugs, medicaments and biological substances, initial encounter] Onset: 5 07-23-2024 Episodic Esophageal disorders (20 sources) Etaon's esophagus without dysplasia; Translations: [Gastroesophageal reflux disease] Onset: 7 02-26-2018 Chronic Essential hypertension (20 sources) Essential (primary) hypertension; Translations: [Hypertensive disorder] Onset: 7 02-26-2018 Chronic Fluid and electrolyte disorders (20 sources) Dehydration; Translations: [Acidosis] Onset: 7 10-16-2019 Episodic Fracture of lower limb (16 sources) Displaced fracture of medial malleolus of left tibia, initial encounter for closed fracture; Translations: [Avulsion fracture of medial malleolus of left tibia] 09-11-2023 Episodic Genitourinary symptoms and ill-defined conditions (3 sources) Dysuria; Translations: [Dysuria] 08-17-2023 Episodic Gout and other crystal arthropathies (20 sources) Gouty arthropathy; Translations: [Gout, unspecified] Onset: 9 03-04-2019 Chronic Headache; including migraine (19 sources) Migraine; Translations: [Migraine, unspecified, not intractable, without status migrainosus] 07-28-2022 Chronic Heart valve disorders (20 sources) Nonrheumatic mitral (valve) prolapse; Translations: [Mitral valve prolapse] Onset: 7 Chronic Immunizations and screening for infectious disease (14 sources) Patient encounter status; Translations: [Other specified vaccination] Onset: 4 01-24-2023 Episodic Influenza (2 sources) Influenza 08-15-2022 Comment on above: FLU SYM Intestinal obstruction without hernia (20 sources) Small bowel obstruction; Translations: [Unspecified intestinal obstruction, unspecified as to partial versus complete obstruction] Onset: 5 Episodic Malaise and fatigue (20 sources) Fatigue; Translations: [Other fatigue] Onset: 8 02-26-2018 Episodic Mood disorders (20 sources) Bipolar disorder, unspecified; Translations: [Bipolar II disorder] Onset: 7 Chronic Comment on above: Bipolar 2 disorder; Mood disorders (1 source) Mood disorders; Translations: [Depression, unspecified] Onset: 3 Mycoses (5 sources) Candidiasis, unspecified; Translations: [Candidiasis of unspecified site] 07-11-2023 Episodic Nausea and vomiting (20 sources) Nausea and vomiting; Translations: [Nausea, vomiting and diarrhea] Onset: 3 08-04-2022 Episodic Neoplasms of unspecified nature or uncertain behavior (20 sources) Monoclonal gammopathy (clinical); Translations: [Monoclonal paraproteinemia] Onset: 9 03-04-2019 Chronic Neoplasms of unspecified nature or uncertain behavior (11 sources) Essential (hemorrhagic) thrombocythemia; Translations: [Thrombocytosis] Onset: 7 07-23-2024 Episodic Noninfectious gastroenteritis (20 sources) Chronic diarrhea of unknown origin ; Translations: [Diarrhea] Onset: Episodic Nonmalignant breast conditions (1 source) Unspecified lump in unspecified breast; Translations: [Lump or mass in breast] 02-16-2023 Episodic Nonspecific chest pain (20 sources) Chest pain; Translations: [Chest pain, unspecified] Onset: 4 01-14-2021 Episodic Nutritional deficiencies (20 sources) Vitamin D [...] spine] Onset: 9 03-04-2019 Chronic Other aftercare (19 sources) Drug therapy finding; Translations: [vermin exterminator (current) use of anticoagulants] 07-28-2022 Episodic Other aftercare (20 sources) Long-term current use of anticoagulant; Translations: [vermin exterminator (current) use of anticoagulants] 08-04-2022 Episodic Other aftercare (6 sources) vermin exterminator (current) use of anticoagulants; Translations: [Long-term (current) use of anticoagulants] Onset: 3 08-04-2022 Episodic Other aftercare (1 source) vermin exterminator (current) use of antithrombotics/antipl atelets; Translations: [FDC (current) use of antithrombotics/antipl atelets] Onset: 3 Episodic Other aftercare (1 source) Other residential (current) drug therapy; Translations: [Other residential (current) drug therapy] Onset: 3 Episodic Other aftercare (4 sources) Post-discharge follow-up; Translations: [Encounter for follow-up [...] 8 02-26-2018 Episodic Other connective tissue disease (15 sources) Mass of thoracic structure; Translations: [Other specified soft tissue disorders] 11-17-2022 Episodic Other connective tissue disease (2 sources) Other specified soft tissue disorders; Translations: [Other disorders of soft tissue] 11-17-2022 Episodic Other connective tissue disease (7 sources) Swelling of lower limb; Translations: [Other specified soft tissue disorders] 12-06-2023 Episodic Other connective tissue disease (10 sources) Recurrent falls ; Translations: [Repeated falls] [...] 03-04-2019 Other ear and sense organ disorders (20 sources) Hearing loss; Translations: [Unspecified hearing loss, bilateral] 04-11-2022 Chronic Other ear and sense organ disorders (3 sources) Unspecified hearing loss, bilateral; Translations: [Other specified forms of hearing loss] Chronic Other ear and sense organ disorders (20 sources) Impacted cerumen; Translations: [Impacted cerumen] 04-11-2022 Episodic Other ear and sense organ disorders (20 sources) Bilateral tinnitus; Translations: [Tinnitus, bilateral] 04-11-2022 Episodic Other ear and sense organ disorders (3 sources) Impacted cerumen, right ear; Translations: [Impacted cerumen] Episodic Other ear and sense organ disorders (3 sources) Tinnitus, bilateral; Translations: [Tinnitus, unspecified] Episodic Other ear and sense organ disorders (1 source) Impacted cerumen in right ear; Translations: [Impacted cerumen, right ear] 01-19-2023 Episodic Other eye disorders (7 sources) Subconjunctival hemorrhage; Translations: [Conjunctival hemorrhage, left eye] 07-28-2022 Episodic Other eye disorders (12 sources) Subconjunctival hemorrhage of left eye; Translations: [...] [Diarrhea, unspecified] 07-11-2021 Episodic Other gastrointestinal disorders (1 source) Nausea, [...] respiratory abnormalities] Episodic Other lower respiratory disease (15 sources) Cough; Translations: [Cough] 11-17-2022 Episodic Other lower respiratory disease (7 sources) Chronic cough; Translations: [[id number] syndrome manifesting as chronic cough] 01-24-2023 Episodic [...] thigh] 02-16-2023 Episodic Other non-traumatic joint disorders (9 sources) Pain in right shoulder; Translations: [Pain in joint, shoulder region] 07-11-2023 Episodic Other non-traumatic joint disorders (20 sources) Pain in left knee; Translations: [Knee pain, left] Onset: 8 02-26-2018 Other nutritional; endocrine; and metabolic disorders (20 sources) Hypomagnesemia; Translations: [Disorders of magnesium metabolism] Onset: 9 03-04-2019 Chronic Other nutritional; endocrine; and metabolic disorders (15 sources) Obesity; Translations: [Obesity, unspecified] 03-25-2024 Chronic Other nutritional; endocrine; and metabolic disorders (18 sources) Hypocalcemia; Translations: [Hypocalcemia] 08-07-2022 Chronic Other [...] Episodic Other nutritional; endocrine; and metabolic disorders (7 sources) Body mass index 25-29 - overweight 02-15-2021 Episodic Other screening for suspected conditions (not mental disorders or infectious disease) (6 sources) Disorder of cardiovascular system; Translations: [CVD (cardiovascular disease)] Onset: 0 10-16-2019 Chronic Other screening for suspected conditions (not mental disorders or infectious disease) (20 sources) Electrocardiogram abnormal; Translations: [Raised TSH level] Onset: 0 10-16-2019 Episodic Other upper respiratory disease (20 sources) Lesion [...] pancreas] 08-04-2022 Episodic Peripheral and visceral atherosclerosis (9 sources) Intermittent claudication; Translations: [Peripheral vascular disease, unspecified] Onset: 4 02-19-2024 Chronic Residual codes; unclassified (1 source) Preoperative state; Translations: [Pre-operative clearance] Episodic Residual codes; unclassified (1 source) History of decompression of median nerve; Translations: [S/P carpal tunnel release] Episodic Residual codes; unclassified (7 sources) Transient alteration of awareness; Translations: [Transient [...] Onset: 7 01-24-2023 Chronic Superficial injury; contusion (9 sources) Contusion of left foot; Translations: [Contusion of left foot, initial encounter] 09-11-2023 Episodic Syncope (20 sources) Syncope and collapse; Translations: [Near syncope] Onset: 7 01-11-2022 Episodic Thyroid disorders (20 sources) Hypothyroidism; Translations: [Unspecified acquired hypothyroidism] Onset: 8 02-26-2018 Chronic Thyroid disorders (1 source) Disorder of thyroid, unspecified; Translations: [Disorder of thyroid, unspecified] Onset: Episodic Unclassified (1 source) FDC (current) use of oral hypoglycemic drugs; Translations: [FOUNDATION ASSISTANT USE ORAL HYPOG] Onset: 7 Unclassified (20 [...] with and (suspected) exposure to COVID-19] Onset: 03-27-202 3 Unclassified (1 source) Lng trm (crnt) use injectable non-insulin antidiabetic drugs; Translations: [Lng trm (crnt) use injectable non-insulin antidiabetic drugs] Onset: 3 Unclassified (1 source) Acidosis, unspecified; Translations: [Acidosis, unspecified] Onset: 5 Unclassified (1 source) Thrombocytosis, unspecified; Translations: [Thrombocytosis, unspecified] Onset: 5 Unclassified (1 source) Foreign body sensation, throat; Translations: [Foreign body sensation, throat] Onset: 4 Past or Other Problems Problem Classification Problem Date Documented Da te Episodic/Chronic Calculus of urinary tract (19 sources) History of calculus of kidney; Translations: [Personal history of kidney stones] Onset: 9 03-04-2019 Episodic Coronary atherosclerosis and other heart disease (20 sources) Stented coronary artery; Translations: [Presence of coronary angioplasty implant and graft] Onset: 2 Episodic Deficiency and other anemia (11 sources) Anemia, unspecified; Translations: [Anemia, unspecified] Onset: 7 08-08-2022 Episodic Deficiency and other anemia (1 source) Iron deficiency anemia, unspecified; Translations: [Iron deficiency anemia, unspecified] Onset: 5 Episodic Other aftercare (3 sources) vermin exterminator (current) use of insulin; Translations: [FOUNDATION ASSISTANT CURRENT USE OF] Onset: 7 Episodic Other aftercare (1 source) Encounter for follow-up examination after completed treatment for conditions other than malignant neoplasm; Translations: [Encounter for follow-up examination after completed treatment for conditions other than malignant neoplasm] Onset: 5 Episodic Other connective tissue disease (20 sources) [...] of fall] Onset: 5 09-14-2023 Episodic Other gastrointestinal disorders (7 sources) Diarrhea, unspecified; Translations: [Diarrhea] Onset: 3 08-08-2022 Episodic Other lower respiratory disease (5 sources) Other forms of dyspnea; Translations: [Other respiratory abnormalities] Onset: 4 Episodic Other nervous system disorders (20 sources) Paresthesia of hand ; Translations: [Paresthesia of both hands] Onset: 8 02-26-2018 Episodic Other nervous system disorders (20 sources) Carpal tunnel syndrome, bilateral upper limbs; Translations: [Bilateral carpal tunnel syndrome] Onset: 8 Resolved: 9 02-26-2018 Pancreatic disorders (not diabetes) (1 source) Secondary pancreatic insufficiency; Translations: [Secondary pancreatic insufficiency] Residual codes; unclassified (19 sources) Noncompliance with treatment; Translations: [Noncompliance] Onset: 9 03-04-2019 Episodic Respiratory failure; insufficiency; arrest (adult) (19 sources) Respiratory failure; insufficiency; arrest (adult) 01-11-2022 Unclassified (1 source) Localized edema; Translations: [LOCALIZED EDEMA] Onset: 7 Episodic Unclassified (20 sources) Patient encounter status; Translations: [FDC current use of non-steroidal anti-inflammatories (NSAID)] Onset: 8 Resolved: 9 02-26-2018 Unclassified (1 source) Bilateral carpal tunnel syndrome Unclassified (19 sources) Tachybradycardia syndrome 01-11-2022 NEGATED: Highlighted row has not occurred!Residual codes; unclassified (20 sources) Disease Episodic Results Test Name Value Interpretation Reference Range Facility Absolute lymphocyte countOrd ered By: Tru Mayer on 02-05-2025 Lymphocytes Auto (Unsp spec) [#/Vol] 1.77 10*3/uL 0.83-4.51 [facility] Activated partial thrombopla stin time (aPTT) in platelet poor plasma by coagulation aOrdered By: Tru Mayer on 09-17-2025 aPTT Coag (PPP) [Time] 28.8 s 24.1-36.2 [facility] Anion gap in Serum or Plasma Ordered By: Tru Mayer on 02-05-2025 Anion gap [Moles/Vol] 14 mmol/L 5-15 [facility] Automated lymphocyte count a s percentage of total leukocytesOrdered By: Tru Mayer on 02-05-2025 Lymphocytes/100 WBC Auto (Unsp spec) 19.0 % 19-41 [facility] BUN/creatinine ratioOrdered By: Tru Mayer on 02-05-2025 Urea nitrogen/Creatinine [Mass ratio] 11.0 mg/mg 10-20 [facility] Basophil percentageOrdered B y: Tru Mayer on 02-05-2025 Basophils/100 WBC (Bld) 0.5 % 0-1 [facility] Bilirubin Test strip Ql (U)O rdered By: Tru Mayer on 02-05-2025 Bilirubin Ql (U) Negative Negative [facility] Bilirubin, totalOrdered By: Tru Mayer on 02-05-2025 Bilirubin [Mass/Vol] 0.27 mg/dL 0.00-1.30 [facility] Carbon dioxide, total [Moles /volume] in Central venous bloodOrdered By: Tru Mayer on 02-05-2025 CO2 [Moles/Vol] 18.3 mmol/L Low 21.0-32.0 [facility] Chloride assayOrdered By: Refugio Mayer on 02-05-2025 Chloride [Moles/Vol] 102 mmol/L 98-108 [facility] Eosinophil percentageOrdered By: Tru Mayer on 02-05-2025 Eosinophils/100 WBC (Bld) 3.3 % 0-5 [facility] Erythrocyte distribution wid th ratioOrdered By: Tru Mayer on 02-05-2025 Erythrocyte distribution width (RBC) [Ratio] 18.3 % High 11.6-14.6 [facility] Erythrocyte distribution wid th standard deviationOrdered By: Tru Robertson on 02-05-2025 Erythrocyte distribution width (RBC) [Ratio] 58.0 fl High 35.1-43.9 [facility] Glomerular filtration rate ( GFR) estimation/1.73 sq m using serum, plasma, or whole bOrdered By: Tru Mayer on 02-05-2025 GFR/1.73 sq M.predicted among non-blacks MDRD (S/P/Bld) [Vol rate/Area] 22 mL/min/{1.73_m2} Low >60 [facility] deOrdered By: Tru Mayer on 02-05-2025 Glucose [Mass/Vol] 173 mg/dL High 74-106 [facility] Hematocrit Auto (Bld) [Volum e fraction]Ordered By: Tru Mayer on 02-05-2025 Hematocrit (Bld) [Volume fraction] 30.7 % Low 37-47 [facility] Hemoglobin measurementOrdere d By: Tru Mayer on 02-05-2025 Hemoglobin (Bld) [Mass/Vol] 9.7 g/dL Low 12.0-15.0 [facility] Immature granulocytes/100 WB C Auto (Bld)Ordered By: Tru Mayer on 02-05-2025 Immature granulocytes/100 WBC (Bld) 0.600 % 0.0-0.9 [facility] Influenza virus A and B and SARS-CoV-2 (COVID-19) and Respiratory syncytial virus RNAOrdered By: Tru Mayer on 02-05-2025 SARS-CoV-2 (COVID-19) RNA JUAN+probe Ql (Unsp spec) [facility] Ketones Test strip Ql (U)Ord ered By: Tru Mayer on 02-05-2025 Ketones Ql (U) Negative Negative [facility] MCV (mean corpuscular volume ) determinationOrdered By: Tru Mayer on 02-05-2025 MCV (RBC) [Entitic vol] 86.5 fL 81-99 [facility] Magnesium measurement (mass/ volume)Ordered By: Tru Mayer on 02-05-2025 Magnesium (Unsp spec) [Mass/Vol] 1.7 mg/dL 1.5-2.2 [facility] Mean corpuscular hemoglobin (MCH) determinationOrdered By: Tru Mayer on 02-05-2025 MCH (RBC) [Entitic mass] 27.3 pg 27.0-32.0 [facility] Monocyte percentageOrdered B y: Tru Mayer on 02-05-2025 Monocytes/100 WBC (Bld) 10.7 % High 0-10 [facility] Mucus LM Ql (Urine sed)Order ed By: Tru Mayer on 02-05-2025 Mucus Ql (Urine sed) 0 SEEN /hpf [facility] Natriuretic peptide.B prohor charo N-Terminal [Mass/volume] in Serum or PlasmaOrdered By: Tru Mayer on 02-05-2025 Natriuretic peptide.B prohormone N-Terminal [Mass/Vol] 194 pg/mL <900 [facility] Neutrophil percentageOrdered By: Tru Mayer on 02-05-2025 Neutrophils/100 WBC (Bld) 65.9 % 47-70 [facility] Nitrite Test strip Ql (U)Ord ered By: Tru Mayer on 02-05-2025 Nitrite Ql (U) Negative Negative [facility] No Panel InformationOrdered By: Tru Mayer on 02-05-2025 17 U/L <32 [facility] Platelet countOrdered By: Refugio Mayer on 02-05-2025 Platelets (Bld) [#/Vol] 477 10*3/uL High 150-450 [facility] Potassium measurement (mass/ volume)Ordered By: Tru Mayer on 02-05-2025 Potassium (Unsp spec) [Mass/Vol] 3.2 mmol/L Low 3.3-5.1 [facility] Protein Test strip Ql (U)Ord ered By: Tru Mayer on 02-05-2025 Protein Ql (U) 100 mg/dl High Negative [facility] Prothrombin timeOrdered By: Tru Mayer on 02-05-2025 PT Coag (PPP) [Time] 15.9 s High 11.7-14.9 [facility] RBC Auto (Bld) [#/Vol]Ordere d By: Tru Mayer on 02-05-2025 RBC (Bld) [#/Vol] 3.55 10*6/uL Low 4.2-5.4 [facility] Serum creatinine measurement (mass/volume)Ordered By: Tru Mayer on 02-05-2025 Creatinine [Mass/Vol] 2.33 mg/dL High 0.70-1.20 [facility] Serum globulin measurementOr dered By: Tru Mayer on 02-05-2025 Globulin (S) [Mass/Vol] 2.1 g/dL Low 2.2-4.2 [facility] Serum glucose measurement (m ass/volume)Ordered By: Tru Mayer on 02-05-2025 Glucose [Mass/Vol] 155 mg/dL High 70-99 [facility] Serum or plasma alanine reese otransferase (ALT) measurementOrdered By: Tru Mayer on 02-05-2025 ALT [Catalytic activity/Vol] 17 U/L <35 [facility] Serum or plasma albumin jamey urement (mass/volume)Ordered By: Tru Robertson on 02-05-2025 Albumin [Mass/Vol] 3.1 g/dL Low 3.4-4.8 [facility] Serum or plasma albumin/glob ulin mass ratioOrdered By: Tru Mayer on 02-05-2025 Albumin/Globulin [Mass ratio] 1.4 {ratio} 0.9-2.4 [facility] Serum or plasma alkaline osman sphatase measurementOrdered By: Tru Mayer on 02-05-2025 ALP [Catalytic activity/Vol] 84 U/L 35-104 [facility] Serum or plasma calcium jamey urement (mass/volume)Ordered By: Tru Robertson on 02-05-2025 Calcium [Mass/Vol] 6.8 mg/dL Low 7.6-11.0 [facility] Serum or plasma urea nitroge n measurement (mass/volume)Ordered By: Tru Mayer on 02-05-2025 Urea nitrogen [Mass/Vol] 26 mg/dL High 4-19 [facility] Sodium levelOrdered By: Jairon Mayer on 02-05-2025 Sodium [Moles/Vol] 135 mmol/L 133-145 [facility] Squamous epithelial cells de tection in urine sediment by light microscopyOrdered By: Tru Mayer on 02-05-2025 Epithelial cells.squamous LM Ql (Urine sed) 0 SEEN /hpf 5-10 [facility] Total proteinOrdered By: Rhys Mayer on 02-05-2025 Protein [Mass/Vol] 5.2 g/dL Low 5.9-8.4 [facility] Troponin T.cardiac [Mass/vol ume] in Serum or Plasma by High sensitivity methodOrdered By: Tru Mayer on 02-05-2025 Troponin T.cardiac High sensitivity method [Mass/Vol] 32 ng/L High <14 [facility] Troponin T.cardiac High sensitivity method [Mass/Vol] 35 ng/L High <14 [facility] Urine clarityOrdered By: Rhys Mayer on 02-05-2025 Clarity (U) Clear Clear [facility] Urine color determinationOrd ered By: Tru Mayer on 02-05-2025 Color (U) Yellow Yellow [facility] Urine glucose detectionOrder ed By: Tru Mayer on 02-05-2025 Glucose Ql (U) 1000 mg/dl High Normal [facility] Urine leukocyte esterase det ection by dipstickOrdered By: Tru Mayer on 02-05-2025 Leukocyte esterase Test strip Ql (U) Negative Negative [facility] Urine pHOrdered By: Tru Neal on 02-05-2025 pH (U) 5.0 [pH] 5.0 - 8.0 [facility] Urine sediment bacteria coun t by microscopy (number/high power field)Ordered By: Tru Mayer on 02-05-2025 Bacteria LM.HPF (Urine sed) [#/Area] 0 /[HPF] None Seen [facility] Urine specific gravity measu rementOrdered By: Tru huberAilyn on 02-05-2025 Specific gravity (U) [Rel density] 1.020 1.002-1.03 0 [facility] Urine urobilinogen measureme ntOrdered By: [facility]iel[facility]ily[facility] on 02-05-2025 Urobilinogen Ql (U) Normal mg/dl Normal [facility] White blood cell (WBC) count Ordered By: [facility]ielAily[facility] on 02-05-2025 WBC (Bld) [#/Vol] 9.3 10*3/uL 4.4-11.0 [facility] White blood cell countOrdere d By: [facility]25 White blood cell count 0-5 SEEN /hpf 0-5 [facility] Calculated very low density lipoprotein (VLDL) cholesterol measurementOrdered By: Seth Ulrich on 01-06-2025 Calculated very low density lipoprotein (VLDL) cholesterol measurement 37 mg/dL 5-40 [facility] Endocrinology Visit Reporton 01-06-2025 Endocrinology Visit Report Normal [facility] LDL calc ser/plasOrdered By: eSth Ulrich on 01-06-2025 Cholesterol in LDL [Mass/Vol] 77 mg/dL [facility] Lipid Profileon 01-06-2025 CHOL:HDL 2.80 Normal [facility] Comment on above: Performed By: #### L 502.0250, L500.4100, L501.9520, L506.0400, L506.1001 ####[facility] [address] [place], [place], [id number] Cholesterol [Mass/Vol] 178 mg/dL Normal <=200 [facility] Comment on above: Result Comment: Chol esterol level, Desirable <200 mg/dLBorderline high cholesterol 200-239 mg/dLHigh cholesterol >=240 mg/dLRecommendations of the NCEP Adult Treatment Panel for thefollowing risk-cutoff thresholds for the [place] Americanpulation. Performed By: #### L 502.0250, L500.4100, L501.9520, L506.0400, L506.1001 ####[facility] [address] [place], [address] Cholesterol in HDL [Mass/Vol] 64 mg/dL Normal [facility] Comment on above: Result Comment: Mamie onal Cholesterol Education Program (NCEP) guidelines:<40 mg/dL: Low HDL-cholesterol (major risk factor for CHD)>= 60 mg/dL: High HDL-cholesterol (negative risk factor forCHD)HDL-cholesterol is affected by a number of factors, e.g.smoking, exercise, hormones, sex and age. Performed By: #### L 502.0250, L500.4100, L501.9520, L506.0400, L506.1001 ####[facility] [address] [place], [address] Cholesterol in LDL [Mass/Vol] 77 mg/dL Normal [facility] Comment on above: Result Comment: Bord sphzil=790-844 mg/dL Higher Lprw=044 mg/dL or greaterFriedwald Equation for LDL-C Performed By: #### L 502.0250, L500.4100, L501.9520, L506.0400, L506.1001 ####[facility] [address] [place], [address] Cholesterol in VLDL [Mass/Vol] 37 mg/dL Normal 5-40 [facility] Comment on above: Performed By: #### L 502.0250, L500.4100, L501.9520, L506.0400, L506.1001 ####[facility] [address] [place], [address] Triglyceride [Mass/Vol] 186 mg/dL Normal [facility] Comment on above: Result Comment: The drugs N-Acetylcysteine and Metamizole may falselydepress this assay.Normal range: <150 mg/dLBorderline High: 150-199 mg/dLHigh: 200-499 mg/dLVery High: >500 mg/dL Performed By: #### L 502.0250, L500.4100, L501.9520, L506.0400, L506.1001 ####[facility] [address] [place], [place], [id number] Microalb:Creat Ratio,Random URon 01-06-2025 Creatinine [Mass/Vol] 58.00 mg/dL Normal 28.00- 217. 00 [facility] Comment on above: Performed By: #### L 502.0250, L500.4100, L501.9520, L506.0400, L506.1001 ####[facility] [address] [place], [place], [id number] MALB:CREAT 506.9 mg/g CRE High <30 mg/g CRE [facility] Comment on above: Performed By: #### L 502.0250, L500.4100, L501.9520, L506.0400, L506.1001 ####[facility] [address] [place], [place], [id number] MICROALBUMIN,UR 294.0 mg/L Normal <20 mg/L [facility] Comment on above: Performed By: #### L 502.0250, L500.4100, L501.9520, L506.0400, L506.1001 ####[facility] [address] [place], [place], [id number] No Panel InformationOrdered By: Seth Ulrich on 01-06-2025 9.9 % High 4.2-6.3 [facility] Random urine creatinine jamey urement (mass/volume)Ordered By: Seth Ulrich on 01-06-2025 Creatinine Unsp time (U) [Mass/Vol] 58.00 mg/dL 28.00-217. 00 [facility] Serum or plasma cholesterol in HDL measurement (mass/volume)Ordered By: Seth Ulrich on 01-06-2025 Cholesterol in HDL [Mass/Vol] 64 mg/dL >40 [facility] Serum or plasma cholesterol measurement (mass/volume)Ordered By: Seth Ulrich on 01-06-2025 Cholesterol [Mass/Vol] 178 mg/dL <201 [facility] T4 Free Directon 01-06-2025 T4 FREE DIRECT 1.20 ng/dL Normal 0.76-1.46 [facility] Comment on above: Performed By: #### L 502.0250, L500.4100, L501.9520, L506.0400, L506.1001 ####[facility] [address] [place], [address] T4 freeOrdered By: Mayank on 01-06-2025 Free T4 [Mass/Vol] 1.20 ng/dL 0.76-1.46 [facility] TSH DL <= 0.005 mIU/L QnOrde red By: Seth Ulrich on 01-06-2025 TSH Qn 4.420 uIU/mL High 0.300-4.20 0 [facility] Thyroid Stim Hormone (TSH)on 01-06-2025 TSH 4.420 uIU/mL High 0.300-4.20 0 [facility] Comment on above: Performed By: #### L 502.0250, L500.4100, L501.9520, L506.0400, L506.1001 ####[facility] [address] [place], [address] Urine albumin measurement [facility] detection limit of 20 mg/L or less (mass/volume)Ordered By: Seth Ulrich on 01-06-2025 Albumin DL <= 20 mg/L (U) [Mass/Vol] 294.0 mg/L <20 mg/L [facility] Vitamin D,25 Hydroxyon 01-06 Vitamin D 25-OH 21.2 ng/mL Low 30-100 [facility] Comment on above: Result Comment: Deborah min D StatusDeficiency: <20 ng/mL (50nmol/L)Insufficiency: 20-30 ng/mL (50-75 nmol/L)Sufficiency: 30-100 ng/mL (75-250 nmol/L)Toxicity: >100 ng/mL (>250 nmol/L) Performed By: #### L 502.0250, L500.4100, L501.9520, L506.0400, L506.1001 ####[facility] [address] [place], [address] Absolute lymphocyte countOrd ered By: ED PROVIDER on 11-15-2024 Lymphocytes Auto (Unsp spec) [#/Vol] 1.65 10*3/uL 0.83-4.51 [facility] Anion gap in Serum or Plasma Ordered By: Sanju Hernandez on 11-15-2024 Anion gap [Moles/Vol] 15 mmol/L 10-03 [facility] Automated lymphocyte count a s percentage of total leukocytesOrdered By: ED PROVIDER on 11-15-2024 Lymphocytes/100 WBC Auto (Unsp spec) 19.5 % [facility] BUN/creatinine ratioOrdered By: Sanju Hernandez on 11-15-2024 Urea nitrogen/Creatinine [Mass ratio] 17.0 mg/mg - [facility] Basic Metabolic Profile (BMP )on 11-15-2024 BUN/CRE 17.0 RATIO Normal - [facility] Comment on above: Performed By: #### L 100.0100, L501.4021, L500.2500 ####[facility] [address] [place], [address] Calcium [Mass/Vol] 8.3 mg/dL Normal 7.6-11.0 [facility] Comment on above: Performed By: #### L 100.0100, L501.4021, L500.2500 ####[facility] [address] [place], [address] Chloride [Moles/Vol] 96 mmol/L Low 98-108 [facility] Comment on above: Performed By: #### L 100.0100, L501.4021, L500.2500 ####[facility] [address] [place], [address] CO2 [Moles/Vol] 19.7 mmol/L Low 21.0-32.0 [facility] Comment on above: Performed By: #### L 100.0100, L501.4021, L500.2500 ####[facility] [address] [place], [address] Creatinine [Mass/Vol] 1.18 mg/dL Normal 0.70-1.20 [facility] Comment on above: Performed By: #### L 100.0100, L501.4021, L500.2500 ####[facility] [address] [place], [address] ECRCL 40.97 ml/min Low 50-250 [facility] Comment on above: Performed By: #### L 100.0100, L501.4021, L500.2500 ####[facility] [address] [place], [address] GAP 15 Normal 5-15 [facility] Comment on above: Performed By: #### L 100.0100, L501.4021, L500.2500 ####[facility] [address] [place], [address] GFR/1.73 sq M.predicted among non-blacks MDRD (S/P/Bld) [Vol rate/Area] 50 mL/min/{1.73_m2} Low >60 [facility] Comment on above: Result Comment: mL/m in/1.73m2 CKD-EPI Creatinine Equation (2020) Performed By: #### L 100.0100, L501.4021, L500.2500 ####[facility] [address] [place], [address] Glucose [Mass/Vol] 179 mg/dL High 70-99 [facility] Comment on above: Performed By: #### L 100.0100, L501.4021, L500.2500 ####[facility] [address] [place], [address] Potassium [Moles/Vol] 4.6 mmol/L Normal 3.3-5.1 [facility] Comment on above: Result Comment: Hemo lysis present, Results??could be affected.?? Performed By: #### L 100.0100, L501.4021, L500.2500 ####[facility] [address] [place], [address] Sodium [Moles/Vol] 130 mmol/L Low 133-145 [facility] Comment on above: Performed By: #### L 100.0100, L501.4021, L500.2500 ####[facility] [address] [place], [address] Urea nitrogen [Mass/Vol] 20 mg/dL High 4-19 [facility] Comment on above: Performed By: #### L 100.0100, L501.4021, L500.2500 ####[facility] [address] [place], [address] Basophil percentageOrdered B y: ED PROVIDER on 11-15-2024 Basophils/100 WBC (Bld) 0.7 % 0-1 [facility] Bilirubin Test strip Ql (U)O rdered By: Sanju Hernandez on 11-15-2024 Bilirubin Ql (U) Negative Negative [facility] Brain/Head without Contrasto n 11-15-2024 Brain/Head without Contrast Normal [facility] CBC W/Diff, Automatedon - Absolute Lymph 1.65 X10 3/uL Normal 0.83-4.51 [facility] Comment on above: Performed By: #### L 100.0100, L501.4021, L500.2500 ####[facility] [address] [place], [address] Absolute Neut 5.6 X10 3/uL Normal 2.0-7.7 [facility] Comment on above: Performed By: #### L 100.0100, L501.4021, L500.2500 ####[facility] [address] [place], [address] Basophils/100 WBC (Bld) 0.7 % Normal 0-1 [facility] Comment on above: Performed By: #### L 100.0100, L501.4021, L500.2500 ####[facility] [address] [place], [address] Eosinophils/100 WBC (Bld) 2.3 % Normal 0-5 [facility] Comment on above: Performed By: #### L 100.0100, L501.4021, L500.2500 ####[facility] [address] [place], [address] Erythrocyte distribution width (RBC) [Ratio] 18.4 % High 11.6-14.6 [facility] Comment on above: Performed By: #### L 100.0100, L501.4021, L500.2500 ####[facility] [address] [place], [address] Hematocrit (Bld) [Volume fraction] 27.3 % Low 37-47 [facility] Comment on above: Performed By: #### L 100.0100, L501.4021, L500.2500 ####[facility] [address] [place], [address] Hemoglobin (Bld) [Mass/Vol] 8.8 g/dL Low 12.0-15.0 [facility] Comment on above: Performed By: #### L 100.0100, L501.4021, L500.2500 ####[facility] [address] [place], [address] IG% 1.900 High 0.0-0.9 [facility] Comment on above: Result Comment: IG% - Immature Granulocytes (promyelocytes, myelocytes andmetamyelocytes) > 1% indicates that a LEFT SHIFT is Present. Performed By: #### L 100.0100, L501.4021, L500.2500 ####[facility] [address] [place], [address] Lymphocytes/100 WBC (Bld) 19.5 % Normal 19-41 [facility] Comment on above: Performed By: #### L 100.0100, L501.4021, L500.2500 ####[facility] [address] [place], [address] MCH (RBC) [Entitic mass] 27.6 pg Normal 27.0-32.0 [facility] Comment on above: Performed By: #### L 100.0100, L501.4021, L500.2500 ####[facility] [address] [place], [address] MCHC (RBC) [Mass/Vol] 32.2 g/dL Normal 32-36 [facility] Comment on above: Performed By: #### L 100.0100, L501.4021, L500.2500 ####[facility] [address] [place], [address] MCV (RBC) [Entitic vol] 85.6 fL Normal 81-99 [facility] Comment on above: Performed By: #### L 100.0100, L501.4021, L500.2500 ####[facility] [address] [place], [address] Monocytes/100 WBC (Bld) 8.9 % Normal 0-10 [facility] Comment on above: Performed By: #### L 100.0100, L501.4021, L500.2500 ####[facility] [address] [place], [address] Neutrophils/100 WBC (Bld) 66.7 % Normal 47-70 [facility] Comment on above: Performed By: #### L 100.0100, L501.4021, L500.2500 ####[facility] [address] [place], [address] Nucleated RBC (Bld) [#/Vol] 0 10*3/uL Normal 0-5 [facility] Comment on above: Performed By: #### L 100.0100, L501.4021, L500.2500 ####[facility] [address] [place], [address] Platelet mean volume (Bld) [Entitic vol] 8.9 fL Normal 6.2-12.0 [facility] Comment on above: Performed By: #### L 100.0100, L501.4021, L500.2500 ####[facility] [address] [place], [address] Platelets (Bld) [#/Vol] 458 10*3/uL High 150-450 [facility] Comment on above: Performed By: #### L 100.0100, L501.4021, L500.2500 ####[facility] [address] [place], [address] RBC (Bld) [#/Vol] 3.19 10*6/uL Low 4.2-5.4 [facility] Comment on above: Performed By: #### L 100.0100, L501.4021, L500.2500 ####[facility] [address] [place], [address] RDW SD 57.3 fl High 35.1-43.9 [facility] Comment on above: Performed By: #### L 100.0100, L501.4021, L500.2500 ####[facility] [address] [place], [address] WBC (Bld) [#/Vol] 8.4 10*3/uL Normal 4.4-11.0 [facility] Comment on above: Performed By: #### L 100.0100, L501.4021, L500.2500 ####[facility] [address] [place], [address] Carbon dioxide, total [Moles /volume] in Central venous bloodOrdered By: Sanju Hernandez on 11-15-2024 CO2 [Moles/Vol] 19.7 mmol/L Low 21.0-32.0 [facility] Chest 1 View (Portable)on Chest 1 View (Portable) Normal [facility] Chloride assayOrdered By: Baldomero Hernandez on 11-15-2024 Chloride [Moles/Vol] 96 mmol/L Low 98-108 [facility] Emergency Department Summary on 11-15-2024 Emergency Department Summary Normal [facility] Eosinophil percentageOrdered By: ED PROVIDER on 11-15-2024 Eosinophils/100 WBC (Bld) 2.3 % 0-5 [facility] Erythrocyte distribution wid th ratioOrdered By: ED PROVIDER on 11-15-2024 Erythrocyte distribution width (RBC) [Ratio] 18.4 % High 11.6-14.6 [facility] Erythrocyte distribution wid th standard deviationOrdered By: ED PROVIDER on 11-15-2024 Erythrocyte distribution width (RBC) [Ratio] 57.3 fl High 35.1-43.9 [facility] Glomerular filtration rate ( GFR) estimation/1.73 sq m using serum, plasma, or whole bOrdered By: Sanju Hernandez on 11-15-2024 GFR/1.73 sq M.predicted among non-blacks MDRD (S/P/Bld) [Vol rate/Area] 50 mL/min/{1.73_m2} Low >60 [facility] Hematocrit Auto (Bld) [Volum e fraction]Ordered By: ED PROVIDER on 11-15-2024 Hematocrit (Bld) [Volume fraction] 27.3 % Low 37-47 [facility] Hemoglobin measurementOrdere d By: ED PROVIDER on 11-15-2024 Hemoglobin (Bld) [Mass/Vol] 8.8 g/dL Low 12.0-15.0 [facility] Immature granulocytes/100 WB C Auto (Bld)Ordered By: ED PROVIDER on 11-15-2024 Immature granulocytes/100 WBC (Bld) 1.900 % High 0.0-0.9 [facility] Ketones Test strip Ql (U)Ord ered By: Sanju Hernandez on 11-15-2024 Ketones Ql (U) Negative Negative [facility] L499.0042on 11-15-2024 Trop T High Sen 15 ng/L High <=14 [facility] Comment on above: Performed By: #### L 499.0042 ####[facility] [address] [place], [address] L499.0043on 11-15-2024 Trop T High Sen Normal <=14 [facility] Comment on above: Result Comment: Canc elled via OM: Order cancelled - Patient discharged Performed By: #### L 499.0043 ####[facility] [address] [place], [address] L501.4021on 11-15-2024 Trop T High Sen 14 ng/L Normal <=14 [facility] Comment on above: Performed By: #### L 100.0100, L501.4021, L500.2500 ####[facility] [address] [place], [address] MCV (mean corpuscular volume ) determinationOrdered By: ED PROVIDER on 11-15-2024 MCV (RBC) [Entitic vol] 85.6 fL 81-99 [facility] Mean corpuscular hemoglobin (MCH) determinationOrdered By: ED PROVIDER on 11-15-2024 MCH (RBC) [Entitic mass] 27.6 pg 27.0-32.0 [facility] Monocyte percentageOrdered B y: ED PROVIDER on 11-15-2024 Monocytes/100 WBC (Bld) 8.9 % 0-10 [facility] Mucus LM Ql (Urine sed)Order ed By: Sanju Hernandez on 11-15-2024 Mucus Ql (Urine sed) 0 SEEN /hpf [facility] Neutrophil percentageOrdered By: ED PROVIDER on 11-15-2024 Neutrophils/100 WBC (Bld) 66.7 % 47-70 [facility] Nitrite Test strip Ql (U)Ord ered By: Sanju Hernandez on 11-15-2024 Nitrite Ql (U) Negative Negative [facility] Platelet countOrdered By: ED PROVIDER on 11-15-2024 Platelets (Bld) [#/Vol] 458 10*3/uL High 150-450 [facility] Potassium measurement (mass/ volume)Ordered By: Sanju Hernandez on 11-15-2024 Potassium (Unsp spec) [Mass/Vol] 4.6 mmol/L 3.3-5.1 [facility] Protein Test strip Ql (U)Ord ered By: Sanju Hernandez on 11-15-2024 Protein Ql (U) 30 mg/dl High Negative [facility] RBC Auto (Bld) [#/Vol]Ordere d By: ED PROVIDER on 11-15-2024 RBC (Bld) [#/Vol] 3.19 10*6/uL Low 4.2-5.4 [facility] Serum creatinine measurement (mass/volume)Ordered By: Sanju Hernandez on 11-15-2024 Creatinine [Mass/Vol] 1.18 mg/dL 0.70-1.20 [facility] Serum glucose measurement (m ass/volume)Ordered By: Sanju Hernandez on 11-15-2024 Glucose [Mass/Vol] 179 mg/dL High 70-99 [facility] Serum or plasma calcium jamey urement (mass/volume)Ordered By: Sanju Hernandez on 11-15-2024 Calcium [Mass/Vol] 8.3 mg/dL 7.6-11.0 [facility] Serum or plasma urea nitroge n measurement (mass/volume)Ordered By: Sanju Hernandez on 11-15-2024 Urea nitrogen [Mass/Vol] 20 mg/dL High 4-19 [facility] Sodium levelOrdered By: Sanju Hernandez on 11-15-2024 Sodium [Moles/Vol] 130 mmol/L Low 133-145 [facility] Squamous epithelial cells de tection in urine sediment by light microscopyOrdered By: Sanju Hernandez on 11-15-2024 Epithelial cells.squamous LM Ql (Urine sed) 5-10 SEEN /hpf 5-10 [facility] Troponin T.cardiac [Mass/vol ume] in Serum or Plasma by High sensitivity methodOrdered By: Sanju Hernandez on 11-15-2024 Troponin T.cardiac High sensitivity method [Mass/Vol] 15 ng/L High <14 [facility] Troponin T.cardiac High sensitivity method [Mass/Vol] 14 ng/L <14 [facility] Urinalysis, Completeon 11-15 BACTERIA 1+ /hpf Normal None Seen [facility] Comment on above: Order Comment: CLEAN CATCH Performed By: #### L 400.0001 ####[facility] [address] [place], [address] WBC 0-5 SEEN Normal 0-5 [facility] Comment on above: Order Comment: CLEAN CATCH Performed By: #### L 400.0001 ####[facility] [address] [place], [address] EPI,SQUAMOUS 5-10 SEEN Normal 5-10 [facility] Comment on above: Order Comment: CLEAN CATCH Performed By: #### L 400.0001 ####[facility] [address] [place], [address] Mucus Ql (Urine sed) 0 SEEN Normal [facility] Comment on above: Order Comment: CLEAN CATCH Performed By: #### L 400.0001 ####[facility] [address] [place], [address] RBC 0 SEEN Normal 0-5 [facility] Comment on above: Order Comment: CLEAN CATCH Performed By: #### L 400.0001 ####[facility] [address] [place], [address] Urine clarityOrdered By: Bryan Hernandez on 11-15-2024 Clarity (U) Clear Clear [facility] Urine color determinationOrd ered By: Sanju Hernandez on 11-15-2024 Color (U) Yellow Yellow [facility] Urine glucose detectionOrder ed By: Sanju Hernandez on 11-15-2024 Glucose Ql (U) 250 mg/dl High Normal [facility] Urine leukocyte esterase det ection by dipstickOrdered By: Sanju Hernandez on 11-15-2024 Leukocyte esterase Test strip Ql (U) 25 /ul High Negative [facility] Urine pHOrdered By: Sanju melgar on 11-15-2024 pH (U) 5.0 [pH] 5.0 - 8.0 [facility] Urine sediment bacteria coun t by microscopy (number/high power field)Ordered By: Sanju Hernandez on 11-15-2024 Bacteria LM.HPF (Urine sed) [#/Area] 1 /[HPF] None Seen [facility] Urine specific gravity measu rementOrdered By: Sanju Hernandez on 11-15-2024 Specific gravity (U) [Rel density] 1.010 1.002-1.03 0 [facility] Urine urobilinogen measureme ntOrdered By: Sanju Hernandez on 11-15-2024 Urobilinogen Ql (U) Normal mg/dl Normal [facility] White blood cell (WBC) count Ordered By: ED PROVIDER on 11-15-2024 WBC (Bld) [#/Vol] 8.4 10*3/uL 4.4-11.0 [facility] White blood cell countOrdere d By: Sanju Hernandez on 11-15-2024 White blood cell count 0-5 SEEN /hpf 0-5 [facility] CBC W/Diff, Automatedon 05-0 Absolute Neut Normal 2.0-7.7 [facility] Comment on above: Result Comment: Canc elled via OM: Order cancelled - Patient discharged Performed By: #### L 500.4050, L100.0100 ####[facility] [address] [facility] [address] HCT Normal 37-47 [facility] Comment on above: Result Comment: Canc elled via OM: Order cancelled - Patient discharged Performed By: #### L 500.4050, L100.0100 ####[facility] [address] [facility] [address] HGB Normal 12.0-15.0 [facility] Comment on above: Result Comment: Canc elled via OM: Order cancelled - Patient discharged Performed By: #### L 500.4050, L100.0100 ####[facility] [address] [place], [address] MCH Normal 27.0-32.0 [facility] Comment on above: Result Comment: Canc elled via OM: Order cancelled - Patient discharged Performed By: #### L 500.4050, L100.0100 ####[facility] [address] [place], [address] MCHC Normal 32-36 [facility] Comment on above: Result Comment: Canc elled via OM: Order cancelled - Patient discharged Performed By: #### L 500.4050, L100.0100 ####[facility] [address] [place], [address] MCV Normal 81-99 [facility] Comment on above: Result Comment: Canc elled via OM: Order cancelled - Patient discharged Performed By: #### L 500.4050, L100.0100 ####[facility] [address] [place], [address] NEUT% Normal 47-70 [facility] Comment on above: Result Comment: Canc elled via OM: Order cancelled - Patient discharged Performed By: #### L 500.4050, L100.0100 ####[facility] [address] [place], [address] PLT Normal 150-450 [facility] Comment on above: Result Comment: Canc elled via OM: Order cancelled - Patient discharged Performed By: #### L 500.4050, L100.0100 ####[facility] [address] [place], [address] RBC Normal 4.2-5.4 [facility] Comment on above: Result Comment: Canc elled via OM: Order cancelled - Patient discharged Performed By: #### L 500.4050, L100.0100 ####[facility] [address] [place], [address] RDW CV Normal 11.6-14.6 [facility] Comment on above: Result Comment: Canc elled via OM: Order cancelled - Patient discharged Performed By: #### L 500.4050, L100.0100 ####[facility] [address] [place], [address] RDW SD Normal 35.1-43.9 [facility] Comment on above: Result Comment: Canc elled via OM: Order cancelled - Patient discharged Performed By: #### L 500.4050, L100.0100 ####[facility] [address] [place], [address] WBC Normal 4.4-11.0 [facility] Comment on above: Result Comment: Canc elled via OM: Order cancelled - Patient discharged Performed By: #### L 500.4050, L100.0100 ####[facility] [address] [place], [address] Comprehensive Metabolic Prof ilon 09-21-2024 ALB Normal 3.4-4.8 [facility] Comment on above: Result Comment: Canc elled via OM: Order cancelled - Patient discharged Performed By: #### L 500.4050, L100.0100 ####[facility] [address] [place], [address] ALK PHOS Normal 35-104 [facility] Comment on above: Result Comment: Canc elled via OM: Order cancelled - Patient discharged Performed By: #### L 500.4050, L100.0100 ####[facility] [address] [place], [address] ALT Normal <=34 [facility] Comment on above: Result Comment: Canc elled via OM: Order cancelled - Patient discharged Performed By: #### L 500.4050, L100.0100 ####[facility] [address] [place], [address] AST Normal <=31 [facility] Comment on above: Result Comment: Canc elled via OM: Order cancelled - Patient discharged Performed By: #### L 500.4050, L100.0100 ####[facility] [address] [place], [address] BUN Normal 4-19 [facility] Comment on above: Result Comment: Canc elled via OM: Order cancelled - Patient discharged Performed By: #### L 500.4050, L100.0100 ####[facility] [address] [place], [address] BUN/CRE Normal 10-20 [facility] Comment on above: Result Comment: Canc elled via OM: Order cancelled - Patient discharged Performed By: #### L 500.4050, L100.0100 ####[facility] [address] [place], [address] Calcium Normal 7.6-11.0 [facility] Comment on above: Result Comment: Canc elled via OM: Order cancelled - Patient discharged Performed By: #### L 500.4050, L100.0100 ####[facility] [address] [place], [address] CL Normal 98-108 [facility] Comment on above: Result Comment: Canc elled via OM: Order cancelled - Patient discharged Performed By: #### L 500.4050, L100.0100 ####[facility] [address] [place], [address] CO2 Normal 21.0-32.0 [facility] Comment on above: Result Comment: Canc elled via OM: Order cancelled - Patient discharged Performed By: #### L 500.4050, L100.0100 ####[facility] [address] [place], [address] CREAT,SERUM Normal 0.70-1.20 [facility] Comment on above: Result Comment: Canc elled via OM: Order cancelled - Patient discharged Performed By: #### L 500.4050, L100.0100 ####[facility] [address] [place], [address] eGFR Normal >60 [facility] Comment on above: Result Comment: Canc elled via OM: Order cancelled - Patient discharged Performed By: #### L 500.4050, L100.0100 ####[facility] [address] [place], [address] GAP Normal 5-15 [facility] Comment on above: Result Comment: Canc elled via OM: Order cancelled - Patient discharged Performed By: #### L 500.4050, L100.0100 ####[facility] [address] [place], [address] GLU Normal 70-99 [facility] Comment on above: Result Comment: Canc elled via OM: Order cancelled - Patient discharged Performed By: #### L 500.4050, L100.0100 ####[facility] [address] [place], [address] Potassium Normal 3.3-5.1 [facility] Comment on above: Result Comment: Canc elled via OM: Order cancelled - Patient discharged Performed By: #### L 500.4050, L100.0100 ####[facility] [address] [place], [address] T BILI Normal 0.00-1.30 [facility] Comment on above: Result Comment: Canc elled via OM: Order cancelled - Patient discharged Performed By: #### L 500.4050, L100.0100 ####[facility] [address] [place], [address] T PROT Normal 5.9-8.4 [facility] Comment on above: Result Comment: Canc elled via OM: Order cancelled - Patient discharged Performed By: #### L 500.4050, L100.0100 ####[facility] [address] [place], [address] Comprehensive Metabolic Profil Normal 133-145 [facility] Comment on above: Result Comment: Canc elled via OM: Order cancelled - Patient discharged Performed By: #### L 500.4050, L100.0100 ####[facility] [address] [place], [address] CBC W/Diff, Automatedon 05-0 -2024 Absolute Neut Normal 2.0-7.7 [facility] Comment on above: Result Comment: Canc elled via OM: Order cancelled - Patient discharged Performed By: #### L 500.4050, L100.0100 ####[facility] [address] [place], [address] HCT Normal 37-47 [facility] Comment on above: Result Comment: Canc elled via OM: Order cancelled - Patient discharged Performed By: #### L 500.4050, L100.0100 ####[facility] [address] [place], [address] HGB Normal 12.0-15.0 [facility] Comment on above: Result Comment: Canc elled via OM: Order cancelled - Patient discharged Performed By: #### L 500.4050, L100.0100 ####[facility] [address] [place], [address] MCH Normal 27.0-32.0 [facility] Comment on above: Result Comment: Canc elled via OM: Order cancelled - Patient discharged Performed By: #### L 500.4050, L100.0100 ####[facility] [address] [place], [address] MCHC Normal 32-36 [facility] Comment on above: Result Comment: Canc elled via OM: Order cancelled - Patient discharged Performed By: #### L 500.4050, L100.0100 ####[facility] [address] [place], [address] MCV Normal 81-99 [facility] Comment on above: Result Comment: Canc elled via OM: Order cancelled - Patient discharged Performed By: #### L 500.4050, L100.0100 ####[facility] [address] [place], [address] NEUT% Normal 47-70 [facility] Comment on above: Result Comment: Canc elled via OM: Order cancelled - Patient discharged Performed By: #### L 500.4050, L100.0100 ####[facility] [address] [place], [address] PLT Normal 150-450 [facility] Comment on above: Result Comment: Canc elled via OM: Order cancelled - Patient discharged Performed By: #### L 500.4050, L100.0100 ####[facility] [address] [place], [address] RBC Normal 4.2-5.4 [facility] Comment on above: Result Comment: Canc elled via OM: Order cancelled - Patient discharged Performed By: #### L 500.4050, L100.0100 ####[facility] [address] [place], [address] RDW CV Normal 11.6-14.6 [facility] Comment on above: Result Comment: Canc elled via OM: Order cancelled - Patient discharged Performed By: #### L 500.4050, L100.0100 ####[facility] [address] [place], [address] RDW SD Normal 35.1-43.9 [facility] Comment on above: Result Comment: Canc elled via OM: Order cancelled - Patient discharged Performed By: #### L 500.4050, L100.0100 ####[facility] [address] [place], [address] WBC Normal 4.4-11.0 [facility] Comment on above: Result Comment: Canc elled via OM: Order cancelled - Patient discharged Performed By: #### L 500.4050, L100.0100 ####[facility] [address] [place], [address] Comprehensive Metabolic Prof ilon 09-20-2024 ALB Normal 3.4-4.8 [facility] Comment on above: Result Comment: Canc elled via OM: Order cancelled - Patient discharged Performed By: #### L 500.4050, L100.0100 ####[facility] [address] [place], [address] ALK PHOS Normal 35-104 [facility] Comment on above: Result Comment: Canc elled via OM: Order cancelled - Patient discharged Performed By: #### L 500.4050, L100.0100 ####[facility] [address] [place], [address] ALT Normal <=34 [facility] Comment on above: Result Comment: Canc elled via OM: Order cancelled - Patient discharged Performed By: #### L 500.4050, L100.0100 ####[facility] [address] [place], [address] AST Normal <=31 [facility] Comment on above: Result Comment: Canc elled via OM: Order cancelled - Patient discharged Performed By: #### L 500.4050, L100.0100 ####[facility] [address] [place], [address] BUN Normal 4-19 [facility] Comment on above: Result Comment: Canc elled via OM: Order cancelled - Patient discharged Performed By: #### L 500.4050, L100.0100 ####[facility] [address] [place], [address] BUN/CRE Normal 10-20 [facility] Comment on above: Result Comment: Canc elled via OM: Order cancelled - Patient discharged Performed By: #### L 500.4050, L100.0100 ####[facility] [address] [place], [address] Calcium Normal 7.6-11.0 [facility] Comment on above: Result Comment: Canc elled via OM: Order cancelled - Patient discharged Performed By: #### L 500.4050, L100.0100 ####[facility] [address] [place], [address] CL Normal 98-108 [facility] Comment on above: Result Comment: Canc elled via OM: Order cancelled - Patient discharged Performed By: #### L 500.4050, L100.0100 ####[facility] [address] [place], [address] CO2 Normal 21.0-32.0 [facility] Comment on above: Result Comment: Canc elled via OM: Order cancelled - Patient discharged Performed By: #### L 500.4050, L100.0100 ####[facility] [address] [place], [address] CREAT,SERUM Normal 0.70-1.20 [facility] Comment on above: Result Comment: Canc elled via OM: Order cancelled - Patient discharged Performed By: #### L 500.4050, L100.0100 ####[facility] [address] [place], [address] eGFR Normal >60 [facility] Comment on above: Result Comment: Canc elled via OM: Order cancelled - Patient discharged Performed By: #### L 500.4050, L100.0100 ####[facility] [address] [place], [address] GAP Normal 5-15 [facility] Comment on above: Result Comment: Canc elled via OM: Order cancelled - Patient discharged Performed By: #### L 500.4050, L100.0100 ####[facility] [address] [place], [address] GLU Normal 70-99 [facility] Comment on above: Result Comment: Canc elled via OM: Order cancelled - Patient discharged Performed By: #### L 500.4050, L100.0100 ####[facility] [address] [place], [address] Potassium Normal 3.3-5.1 [facility] Comment on above: Result Comment: Canc elled via OM: Order cancelled - Patient discharged Performed By: #### L 500.4050, L100.0100 ####[facility] [address] [place], [address] T BILI Normal 0.00-1.30 [facility] Comment on above: Result Comment: Canc elled via OM: Order cancelled - Patient discharged Performed By: #### L 500.4050, L100.0100 ####[facility] [address] [place], [address] T PROT Normal 5.9-8.4 [facility] Comment on above: Result Comment: Canc elled via OM: Order cancelled - Patient discharged Performed By: #### L 500.4050, L100.0100 ####[facility] [address] [place], [address] Comprehensive Metabolic Profil Normal 133-145 [facility] Comment on above: Result Comment: Canc elled via OM: Order cancelled - Patient discharged Performed By: #### L 500.4050, L100.0100 ####[facility] [address] [place], [address] Absolute lymphocyte countOrd ered By: Bassem Schwartz on 09-19-2024 Lymphocytes Auto (Unsp spec) [#/Vol] 2.19 10*3/uL 0.83-4.51 [facility] Anion gap in Serum or Plasma Ordered By: Bassem Schwartz on 09-19-2024 Anion gap [Moles/Vol] 11 mmol/L 5-15 [facility] Automated lymphocyte count a s percentage of total leukocytesOrdered By: Bassem Schwartz on 09-19-2024 Lymphocytes/100 WBC Auto (Unsp spec) 25.9 % 19-41 [facility] BUN/creatinine ratioOrdered By: Bassem Schwartz on 09-19-2024 Urea nitrogen/Creatinine [Mass ratio] 22.5 mg/mg High 10-20 [facility] Basophil percentageOrdered B y: Bassem Schwartz on 09-19-2024 Basophils/100 WBC (Bld) 0.8 % 0-1 [facility] Bedside Glucoseon 09-19-2024 FINGERSTICK GLU 237 mg/dL High 74-106 [facility] Comment on above: Result Comment: LOURDES GEMENT OF PATIENT CARE PER NURSING PROTOCOL Performed By: #### L 501.080 ####[facility] [address] [place], [address] FINGERSTICK GLU 117 mg/dL High [facility]106 [facility] Comment on above: Result Comment: LOURDES GEMENT OF PATIENT CARE PER NURSING PROTOCOL Performed By: #### L 501.080 ####[facility] [address] [place], [address] FINGERSTICK GLU 101 mg/dL Normal -[address] [place] [address] Comment on above: Result Comment: LOURDES GEMENT OF PATIENT CARE PER NURSING PROTOCOL Performed By: #### L 501.080 ####[facility] [address] [place], [address] Bilirubin, totalOrdered By: Bassem Schwartz on 09-19-2024 Bilirubin [Mass/Vol] 0.20 mg/dL 0.00-1.30 [facility] CBC W/Diff, Automatedon Absolute Lymph 2.19 X10 3/uL Normal 0.83-4.51 [facility] Comment on above: Performed By: #### L 100.0100, L500.4050, L501.2300, L501.5200 ####[facility] [address] [place], [address] Absolute Neut 5.2 X10 3/uL Normal 2.0-7.7 [facility] Comment on above: Performed By: #### L 100.0100, L500.4050, L501.2300, L501.5200 ####[facility] [address] [place], [address] Basophils/100 WBC (Bld) 0.8 % Normal 0-1 [facility] Comment on above: Performed By: #### L 100.0100, L500.4050, L501.2300, L501.5200 ####[facility] [address] [place], [address] Eosinophils/100 WBC (Bld) 3.4 % Normal 0-5 [facility] Comment on above: Performed By: #### L 100.0100, L500.4050, L501.2300, L501.5200 ####[facility] [address] [place], [address] Erythrocyte distribution width (RBC) [Ratio] 18.7 % High 11.6-14.6 [facility] Comment on above: Performed By: #### L 100.0100, L500.4050, L501.2300, L501.5200 ####[facility] [address] [place], [address] Hematocrit (Bld) [Volume fraction] 28.3 % Low 37-47 [facility] Comment on above: Performed By: #### L 100.0100, L500.4050, L501.2300, L501.5200 ####[facility] [address] [place], [address] Hemoglobin (Bld) [Mass/Vol] 8.9 g/dL Low 12.0-15.0 [facility] Comment on above: Performed By: #### L 100.0100, L500.4050, L501.2300, L501.5200 ####[facility] [address] [place], [address] IG% 0.600 Normal 0.0-0.9 [facility] Comment on above: Result Comment: IG% - Immature Granulocytes (promyelocytes, myelocytes andmetamyelocytes) > 1% indicates that a LEFT SHIFT is Present. Performed By: #### L 100.0100, L500.4050, L501.2300, L501.5200 ####[facility] [address] [place], [address] Lymphocytes/100 WBC (Bld) 25.9 % Normal 19-41 [facility] Comment on above: Performed By: #### L 100.0100, L500.4050, L501.2300, L501.5200 ####[facility] [address] [place], [address] MCH (RBC) [Entitic mass] 27.1 pg Normal 27.0-32.0 [facility] Comment on above: Performed By: #### L 100.0100, L500.4050, L501.2300, L501.5200 ####[facility] [address] [place], [address] MCHC (RBC) [Mass/Vol] 31.4 g/dL Low 32-36 [facility] Comment on above: Performed By: #### L 100.0100, L500.4050, L501.2300, L501.5200 ####[facility] [address] [place], [address] MCV (RBC) [Entitic vol] 86.0 fL Normal 81-99 [facility] Comment on above: Performed By: #### L 100.0100, L500.4050, L501.2300, L501.5200 ####[facility] [address] [place], [address] Monocytes/100 WBC (Bld) 7.5 % Normal 0-10 [facility] Comment on above: Performed By: #### L 100.0100, L500.4050, L501.2300, L501.5200 ####[facility] [address] [place], [address] Neutrophils/100 WBC (Bld) 61.8 % Normal 47-70 [facility] Comment on above: Performed By: #### L 100.0100, L500.4050, L501.2300, L501.5200 ####[facility] [address] [place], [address] Nucleated RBC (Bld) [#/Vol] 0 10*3/uL Normal 0-5 [facility] Comment on above: Performed By: #### L 100.0100, L500.4050, L501.2300, L501.5200 ####[facility] [address] [place], [address] Platelet mean volume (Bld) [Entitic vol] 8.7 fL Normal 6.2-12.0 [facility] Comment on above: Performed By: #### L 100.0100, L500.4050, L501.2300, L501.5200 ####[facility] [address] [place], [address] Platelets (Bld) [#/Vol] 442 10*3/uL Normal 150-450 [facility] Comment on above: Performed By: #### L 100.0100, L500.4050, L501.2300, L501.5200 ####[facility] [address] [place], [address] RBC (Bld) [#/Vol] 3.29 10*6/uL Low 4.2-5.4 [facility] Comment on above: Performed By: #### L 100.0100, L500.4050, L501.2300, L501.5200 ####[facility] [address] [place], [address] RDW SD 59.0 fl High 35.1-43.9 [facility] Comment on above: Performed By: #### L 100.0100, L500.4050, L501.2300, L501.5200 ####[facility] [address] [place], [address] WBC (Bld) [#/Vol] 8.5 10*3/uL Normal 4.4-11.0 [facility] Comment on above: Performed By: #### L 100.0100, L500.4050, L501.2300, L501.5200 ####[facility] [address] [place], [address] Carbon dioxide, total [Moles /volume] in Central venous bloodOrdered By: Bassem Schwartz on 09-19-2024 CO2 [Moles/Vol] 18.9 mmol/L Low 21.0-32.0 [facility] Chloride assayOrdered By: Giovanny Schwartz on 09-19-2024 Chloride [Moles/Vol] 104 mmol/L 98-108 [facility] Comprehensive Metabolic Prof ilon 09-19-2024 Albumin [Mass/Vol] 3.5 g/dL Normal 3.4-4.8 [facility] Comment on above: Performed By: #### L 100.0100, L500.4050, L501.2300, L501.5200 ####[facility] [address] [place], [address] Albumin/Globulin [Mass ratio] 1.4 {ratio} Normal 0.9-2.4 [facility] Comment on above: Performed By: #### L 100.0100, L500.4050, L501.2300, L501.5200 ####[facility] [address] [place], [address] ALK PHOS 91 U/L Normal 35-104 [facility] Comment on above: Performed By: #### L 100.0100, L500.4050, L501.2300, L501.5200 ####[facility] [address] [place], [address] ALT [Catalytic activity/Vol] 12 U/L Normal <=34 [facility] Comment on above: Performed By: #### L 100.0100, L500.4050, L501.2300, L501.5200 ####[facility] [address] [place], [address] AST [Catalytic activity/Vol] 13 U/L Normal <=31 [facility] Comment on above: Performed By: #### L 100.0100, L500.4050, L501.2300, L501.5200 ####[facility] [address] [place], [address] Bilirubin [Mass/Vol] 0.20 mg/dL Normal 0.00-1.30 [facility] Comment on above: Performed By: #### L 100.0100, L500.4050, L501.2300, L501.5200 ####[facility] [address] [place], [address] BUN/CRE 22.5 RATIO High 10-20 [facility] Comment on above: Performed By: #### L 100.0100, L500.4050, L501.2300, L501.5200 ####[facility] [address] [place], [address] Calcium [Mass/Vol] 8.1 mg/dL Normal 7.6-11.0 [facility] Comment on above: Performed By: #### L 100.0100, L500.4050, L501.2300, L501.5200 ####[facility] [address] [place], [address] Chloride [Moles/Vol] 104 mmol/L Normal 98-108 [facility] Comment on above: Performed By: #### L 100.0100, L500.4050, L501.2300, L501.5200 ####[facility] [address] [place], [address] CO2 [Moles/Vol] 18.9 mmol/L Low 21.0-32.0 [facility] Comment on above: Performed By: #### L 100.0100, L500.4050, L501.2300, L501.5200 ####[facility] [address] [place], [address] Creatinine [Mass/Vol] 1.27 mg/dL High 0.70-1.20 [facility] Comment on above: Performed By: #### L 100.0100, L500.4050, L501.2300, L501.5200 ####[facility] [address] [place], [address] ECRCL 36.90 ml/min Low 50-250 [facility] Comment on above: Performed By: #### L 100.0100, L500.4050, L501.2300, L501.5200 ####[facility] [address] [place], [address] GAP 11 Normal 5-15 [facility] Comment on above: Performed By: #### L 100.0100, L500.4050, L501.2300, L501.5200 ####[facility] [address] [place], [address] GFR/1.73 sq M.predicted among non-blacks MDRD (S/P/Bld) [Vol rate/Area] 46 mL/min/{1.73_m2} Low >60 [facility] Comment on above: Result Comment: mL/m in/1.73m2 CKD-EPI Creatinine Equation (2020) Performed By: #### L 100.0100, L500.4050, L501.2300, L501.5200 ####[facility] [address] [place], [address] Globulin (S) [Mass/Vol] 2.5 g/dL Normal 2.2-4.2 [facility] Comment on above: Performed By: #### L 100.0100, L500.4050, L501.2300, L501.5200 ####[facility] [address] [place], [address] Glucose [Mass/Vol] 104 mg/dL High 70-99 [facility] Comment on above: Performed By: #### L 100.0100, L500.4050, L501.2300, L501.5200 ####[facility] [address] [place], [address] Potassium [Moles/Vol] 3.1 mmol/L Low 3.3-5.1 [facility] Comment on above: Performed By: #### L 100.0100, L500.4050, L501.2300, L501.5200 ####[facility] [address] [place], [address] Sodium [Moles/Vol] 133 mmol/L Normal 133-145 [facility] Comment on above: Performed By: #### L 100.0100, L500.4050, L501.2300, L501.5200 ####[facility] [address] [place], [address] T PROT 6.0 g/dL Normal 5.9-8.4 [place] [facility] Comment on above: Performed By: #### L 100.0100, L500.4050, L501.2300, L501.5200 ####[facility] [address] [place], [address] Urea nitrogen [Mass/Vol] 29 mg/dL High 4-19 [facility] Comment on above: Performed By: #### L 100.0100, L500.4050, L501.2300, L501.5200 ####[facility] [address] [place], [address] Eosinophil percentageOrdered By: Bassem Schwartz on 09-19-2024 Eosinophils/100 WBC (Bld) 3.4 % 0-5 [facility] Erythrocyte distribution wid th ratioOrdered By: Bassem Schwartz on 09-19-2024 Erythrocyte distribution width (RBC) [Ratio] 18.7 % High 11.6-14.6 [facility] Erythrocyte distribution wid th standard deviationOrdered By: Bassem Schwartz on 09-19-2024 Erythrocyte distribution width (RBC) [Ratio] 59.0 fl High 35.1-43.9 [facility] Glomerular filtration rate ( GFR) estimation/1.73 sq m using serum, plasma, or whole bOrdered By: Bassem Schwartz on 09-19-2024 GFR/1.73 sq M.predicted among non-blacks MDRD (S/P/Bld) [Vol rate/Area] 46 mL/min/{1.73_m2} Low >60 [facility]dered By: Bassem Schwartz on 09-19-2024 Glucose [Mass/Vol] 237 mg/dL High 74-106 [facility] Hematocrit Auto (Bld) [Volum e fraction]Ordered By: Bassem Schwartz on 09-19-2024 Hematocrit (Bld) [Volume fraction] 28.3 % Low 37-47 [facility] Hemoglobin measurementOrdere d By: Bassem Schwartz on 09-19-2024 Hemoglobin (Bld) [Mass/Vol] 8.9 g/dL Low 12.0-15.0 [facility] Immature granulocytes/100 WB C Auto (Bld)Ordered By: Bassem Schwartz on 09-19-2024 Immature granulocytes/100 WBC (Bld) 0.600 % 0.0-0.9 [facility] MCV (mean corpuscular volume ) determinationOrdered By: Bassem Schwartz on 09-19-2024 MCV (RBC) [Entitic vol] 86.0 fL 81-99 [facility] Magnesiumon 09-19-2024 Magnesium [Mass/Vol] 2.1 mg/dL Normal 1.5-2.2 [facility] Comment on above: Performed By: #### L 100.0100, L500.4050, L501.2300, L501.5200 ####[facility] [address] [place], [address] Magnesium measurement (mass/ volume)Ordered By: Bassem Schwartz on 09-19-2024 Magnesium (Unsp spec) [Mass/Vol] 2.1 mg/dL 1.5-2.2 [facility] Mean corpuscular hemoglobin (MCH) determinationOrdered By: Bassem Schwartz on 09-19-2024 MCH (RBC) [Entitic mass] 27.1 pg 27.0-32.0 [facility] Monocyte percentageOrdered B y: Bassem Schwartz on 09-19-2024 Monocytes/100 WBC (Bld) 7.5 % 0-10 [facility] Neutrophil percentageOrdered By: Bassem Schwartz on 09-19-2024 Neutrophils/100 WBC (Bld) 61.8 % 47-70 [facility] No Panel InformationOrdered By: Bassem Schwartz on 09-19-2024 13 U/L <32 [facility] Phosphoruson 09-19-2024 Phosphate [Mass/Vol] 2.8 mg/dL Normal 2.7-4.5 [facility] Comment on above: Performed By: #### L 100.0100, L500.4050, L501.2300, L501.5200 ####[facility] [address] [place], [address] Platelet countOrdered By: Giovanny Schwartz on 09-19-2024 Platelets (Bld) [#/Vol] 442 10*3/uL 150-450 [facility] Potassium measurement (mass/ volume)Ordered By: Bassem Schwartz on 09-19-2024 Potassium (Unsp spec) [Mass/Vol] 3.1 mmol/L Low 3.3-5.1 [facility] RBC Auto (Bld) [#/Vol]Ordere d By: Bassem Schwartz on 09-19-2024 RBC (Bld) [#/Vol] 3.29 10*6/uL Low 4.2-5.4 [facility] Serum creatinine measurement (mass/volume)Ordered By: Bassem Schwartz on 09-19-2024 Creatinine [Mass/Vol] 1.27 mg/dL High 0.70-1.20 [facility] Serum globulin measurementOr dered By: Bassem Schwartz on 09-19-2024 Globulin (S) [Mass/Vol] 2.5 g/dL 2.2-4.2 [facility] Serum glucose measurement (m ass/volume)Ordered By: Bassem Schwartz on 09-19-2024 Glucose [Mass/Vol] 104 mg/dL High 70-99 [facility] Serum or plasma alanine reese otransferase (ALT) measurementOrdered By: Bassem Schwartz on 09-19-2024 ALT [Catalytic activity/Vol] 12 U/L <35 [facility] Serum or plasma albumin jamey urement (mass/volume)Ordered By: Bassem Schwartz on 09-19-2024 Albumin [Mass/Vol] 3.5 g/dL 3.4-4.8 [facility] Serum or plasma albumin/glob ulin mass ratioOrdered By: Bassem Schwartz on 09-19-2024 Albumin/Globulin [Mass ratio] 1.4 {ratio} 0.9-2.4 [facility] Serum or plasma alkaline osman sphatase measurementOrdered By: Bassem Schwartz on 09-19-2024 ALP [Catalytic activity/Vol] 91 U/L 35-104 [facility] Serum or plasma calcium jamey urement (mass/volume)Ordered By: Bassem Schwartz on 09-19-2024 Calcium [Mass/Vol] 8.1 mg/dL 7.6-11.0 [facility] Serum or plasma urea nitroge n measurement (mass/volume)Ordered By: Bassem Schwartz on 09-19-2024 Urea nitrogen [Mass/Vol] 29 mg/dL High 4-19 [facility] Sodium levelOrdered By: Bill Schwartz on 09-19-2024 Sodium [Moles/Vol] 133 mmol/L 133-145 [facility] Total proteinOrdered By: Ramsey Schwartz on 09-19-2024 Protein [Mass/Vol] 6.0 g/dL 5.9-8.4 [facility] White blood cell (WBC) count Ordered By: Bassem Schwartz on 09-19-2024 WBC (Bld) [#/Vol] 8.5 10*3/uL 4.4-11.0 [facility] Abdomen Single View (Portabl e)on 09-18-2024 Abdomen Single View (Portable) Normal [facility] Bedside Glucoseon 09-18-2024 FINGERSTICK GLU 169 mg/dL High 74-106 [facility] Comment on above: Result Comment: LOURDES GEMENT OF PATIENT CARE PER NURSING PROTOCOL Performed By: #### L 501.080 ####[facility] [address] [facility] [address] FINGERSTICK GLU 67 mg/dL Low 74-106 [facility] Comment on above: Result Comment: LOURDES GEMENT OF PATIENT CARE PER NURSING PROTOCOL Performed By: #### L 501.080 ####[facility] [address] [facility] [address] FINGERSTICK GLU 195 mg/dL High 74-106 [facility] Comment on above: Result Comment: LOURDES GEMENT OF PATIENT CARE PER NURSING PROTOCOL Performed By: #### L 501.080 ####[facility] [address] [facility] [address] FINGERSTICK GLU 181 mg/dL High 74-106 [facility] Comment on above: Result Comment: LOURDES GEMENT OF PATIENT CARE PER NURSING PROTOCOL Performed By: #### L 501.080 ####[facility] [address] [place], [address] FINGERSTICK GLU 172 mg/dL High 74-106 [facility] Comment on above: Result Comment: LUORDES GEMENT OF PATIENT CARE PER NURSING PROTOCOL Performed By: #### L 501.080 ####[facility] [address] [place], [address] FINGERSTICK GLU 219 mg/dL High 74-106 [facility] Comment on above: Result Comment: LOURDES GEMENT OF PATIENT CARE PER NURSING PROTOCOL Performed By: #### L 501.080 ####[facility] [address] [place], [address] CBC W/Diff, Automatedon 04 0-2024 Absolute Lymph 2.16 X10 3/uL Normal 0.83-4.51 [facility] Comment on above: Performed By: #### L 100.0100, L500.4050 ####[facility] [address] [place], [address] Absolute Neut 9.1 X10 3/uL High 2.0-7.7 [facility] Comment on above: Performed By: #### L 100.0100, L500.4050 ####[facility] [address] [place], [address] Basophils/100 WBC (Bld) 0.5 % Normal 0-1 [facility] Comment on above: Performed By: #### L 100.0100, L500.4050 ####[facility] [address] [place], [address] Eosinophils/100 WBC (Bld) 2.4 % Normal 0-5 [facility] Comment on above: Performed By: #### L 100.0100, L500.4050 ####[facility] [address] [place], [address] Erythrocyte distribution width (RBC) [Ratio] 18.6 % High 11.6-14.6 [facility] Comment on above: Performed By: #### L 100.0100, L500.4050 ####[facility] [address] [place], [address] Hematocrit (Bld) [Volume fraction] 32.5 % Low 37-47 [facility] Comment on above: Performed By: #### L 100.0100, L500.4050 ####[facility] [address] [place], [address] Hemoglobin (Bld) [Mass/Vol] 10.1 g/dL Low 12.0-15.0 [facility] Comment on above: Performed By: #### L 100.0100, L500.4050 ####[facility] [address] [place], [address] IG% 0.600 Normal 0.0-0.9 [facility] Comment on above: Result Comment: IG% - Immature Granulocytes (promyelocytes, myelocytes andmetamyelocytes) > 1% indicates that a LEFT SHIFT is Present. Performed By: #### L 100.0100, L500.4050 ####[facility] [address] [place], [address] Lymphocytes/100 WBC (Bld) 17.1 % Low 19-41 [facility] Comment on above: Performed By: #### L 100.0100, L500.4050 ####[facility] [address] [place], [address] MCH (RBC) [Entitic mass] 27.1 pg Normal 27.0-32.0 [facility] Comment on above: Performed By: #### L 100.0100, L500.4050 ####[facility] [address] [place], [address] MCHC (RBC) [Mass/Vol] 31.1 g/dL Low 32-36 [facility] Comment on above: Performed By: #### L 100.0100, L500.4050 ####[facility] [address] [place], [address] MCV (RBC) [Entitic vol] 87.1 fL Normal 81-99 [facility] Comment on above: Performed By: #### L 100.0100, L500.4050 ####[facility] [address] [place], [address] Monocytes/100 WBC (Bld) 7.4 % Normal 0-10 [facility] Comment on above: Performed By: #### L 100.0100, L500.4050 ####[facility] [address] [place], [address] Neutrophils/100 WBC (Bld) 72.0 % High 47-70 [facility] Comment on above: Performed By: #### L 100.0100, L500.4050 ####[facility] [address] [place], [address] Nucleated RBC (Bld) [#/Vol] 0 10*3/uL Normal 0-5 [facility] Comment on above: Performed By: #### L 100.0100, L500.4050 ####[facility] [address] [place], [address] Platelet mean volume (Bld) [Entitic vol] 9.0 fL Normal 6.2-12.0 [facility] Comment on above: Performed By: #### L 100.0100, L500.4050 ####[facility] [address] [place], [address] Platelets (Bld) [#/Vol] 561 10*3/uL High 150-450 [facility] Comment on above: Performed By: #### L 100.0100, L500.4050 ####[facility] [address] [place], [address] RBC (Bld) [#/Vol] 3.73 10*6/uL Low 4.2-5.4 [facility] Comment on above: Performed By: #### L 100.0100, L500.4050 ####[facility] [address] [place], [address] RDW SD 59.0 fl High 35.1-43.9 [facility] Comment on above: Performed By: #### L 100.0100, L500.4050 ####[facility] [address] [place], [address] WBC (Bld) [#/Vol] 12.7 10*3/uL High 4.4-11.0 [facility] Comment on above: Performed By: #### L 100.0100, L500.4050 ####[facility] [address] [place], [address] CDIFF (PCR)on 09-18-2024 CDIFF Normal [facility] Comment on above: Performed By: #### M 100.6796, M100.637 ####[facility] [address] [place], [address] Clostridium difficile detect ion by polymerase chain reactionOrdered By: Jailyn Wiggins on 09-18-2024 C. difficile DNA JUAN+probe Ql (Unsp spec) [facility] Comprehensive Metabolic Prof ilon 09-18-2024 Albumin [Mass/Vol] 3.8 g/dL Normal 3.4-4.8 [facility] Comment on above: Performed By: #### L 100.0100, L500.4050 ####[facility] [address] [place], [address] Albumin/Globulin [Mass ratio] 1.4 {ratio} Normal 0.9-2.4 [facility] Comment on above: Performed By: #### L 100.0100, L500.4050 ####[facility] [address] [place], [address] ALK PHOS 107 U/L High 35-104 [facility] Comment on above: Performed By: #### L 100.0100, L500.4050 ####[facility] [address] [place], [address] ALT [Catalytic activity/Vol] 14 U/L Normal <=34 [facility] Comment on above: Performed By: #### L 100.0100, L500.4050 ####[facility] [address] [place], [address] AST [Catalytic activity/Vol] 14 U/L Normal <=31 [facility] Comment on above: Performed By: #### L 100.0100, L500.4050 ####[facility] [address] [place], [address] Bilirubin [Mass/Vol] 0.22 mg/dL Normal 0.00-1.30 [facility] Comment on above: Performed By: #### L 100.0100, L500.4050 ####[facility] [address] [place], [address] BUN/CRE 22.5 RATIO High 10-20 [facility] Comment on above: Performed By: #### L 100.0100, L500.4050 ####[facility] [address] [place], [address] Calcium [Mass/Vol] 8.4 mg/dL Normal 7.6-11.0 [facility] Comment on above: Performed By: #### L 100.0100, L500.4050 ####[facility] [address] [place], [address] Chloride [Moles/Vol] 102 mmol/L Normal 98-108 [facility] Comment on above: Performed By: #### L 100.0100, L500.4050 ####[facility] [address] [place], [address] CO2 [Moles/Vol] 16.3 mmol/L Low 21.0-32.0 [facility] Comment on above: Performed By: #### L 100.0100, L500.4050 ####[facility] [address] [place], [address] Creatinine [Mass/Vol] 1.58 mg/dL High 0.70-1.20 [facility] Comment on above: Performed By: #### L 100.0100, L500.4050 ####[facility] [address] [place], [address] ECRCL 29.39 ml/min Low 50-250 [facility] Comment on above: Performed By: #### L 100.0100, L500.4050 ####[facility] [address] [place], [address] GAP 13 Normal 5-15 [facility] Comment on above: Performed By: #### L 100.0100, L500.4050 ####[facility] [address] [place], [address] GFR/1.73 sq M.predicted among non-blacks MDRD (S/P/Bld) [Vol rate/Area] 35 mL/min/{1.73_m2} Low >60 [facility] Comment on above: Result Comment: mL/m in/1.73m2 CKD-EPI Creatinine Equation (2020) Performed By: #### L 100.0100, L500.4050 ####[facility] [address] [place], [address] Globulin (S) [Mass/Vol] 2.8 g/dL Normal 2.2-4.2 [facility] Comment on above: Performed By: #### L 100.0100, L500.4050 ####[facility] [address] [place], [address] Glucose [Mass/Vol] 168 mg/dL High 70-99 [facility] Comment on above: Performed By: #### L 100.0100, L500.4050 ####[facility] [address] [place], [address] Potassium [Moles/Vol] 4.4 mmol/L Normal 3.3-5.1 [facility] Comment on above: Performed By: #### L 100.0100, L500.4050 ####[facility] [address] [place], [address] Sodium [Moles/Vol] 131 mmol/L Low 133-145 [facility] Comment on above: Performed By: #### L 100.0100, L500.4050 ####[facility] [address] [place], [address] T PROT 6.6 g/dL Normal 5.9-8.4 [facility] Comment on above: Performed By: #### L 100.0100, L500.4050 ####[facility] [address] [place], [address] Urea nitrogen [Mass/Vol] 36 mg/dL High 4-19 [facility] Comment on above: Performed By: #### L 100.0100, L500.4050 ####[facility] [address] [place], [address] Consultation - Surgicalon Consultation - Surgical Normal [facility] ENTERIC PATHOGEN PANEL STOOL on 09-18-2024 EP PANEL Normal [facility] Comment on above: Performed By: #### M 100.6796, M100.637 ####[facility] [address] [place], [address] Ferritinon 09-18-2024 Ferritin [Mass/Vol] 21 ng/mL Low 22-378 [facility] Comment on above: Performed By: #### L 100.9950, L503.6030, L503.6550 ####[facility] [address] [place], [address] Iron measurement (mass/mass) Ordered By: Bassem Schwartz on 09-18-2024 Iron (Unsp spec) [Mass/Mass] 25 ug/dL Low 50-170 [facility] Iron+Iron Binding Capacityon 09-18-2024 Iron [Mass/Vol] 25 ug/dL Low 50-170 [facility] Comment on above: Performed By: #### L 100.9950, L503.6030, L503.6550 ####[facility] [address] [place], [address] IRON SATURATION 6.0 Low 13-59 [facility] Comment on above: Performed By: #### L 100.9950, L503.6030, L503.6550 ####[facility] [address] [place], [address] TIBC 384 ug/dL Normal 250-450 [facility] Comment on above: Performed By: #### L 100.9950, L503.6030, L503.6550 ####[facility] [address] [place], [address] UIBC 359 ug/dL Normal 228-428 [facility] Comment on above: Performed By: #### L 100.9950, L503.6030, L503.6550 ####[facility] [address] [place], [address] Lactic Acidon 09-18-2024 Lactate [Moles/Vol] 2.0 mmol/L Normal 0.0-2.0 [facility] Comment on above: Result Comment: Crit ical Result(s) Called at: 0117 by: TARAN RAMIREZ??Results read back by same. Performed By: #### L 503.6005 ####[facility] [address] [place], [address] No Panel InformationOrdered By: Bassem Schwartz on 09-18-2024 359 ug/dL 228-428 [facility] Retic Panelon 09-18-2024 IM RET FRACTION 14.60 Normal 3.00-15.90 [facility] Comment on above: Performed By: #### L 100.9950, L503.6030, L503.6550 ####[facility] [address] [place], [address] RET-HE 27.8 pg Low 30-35 [facility] Comment on above: Performed By: #### L 100.9950, L503.6030, L503.6550 ####[facility] [address] [place], [address] Retic Count 1.98 High 0.5-1.5 [facility] Comment on above: Performed By: #### L 100.9950, L503.6030, L503.6550 ####[facility] [address] [place], [address] Reticulocyte hemoglobin equi valent (RET-He) measurementOrdered By: Bassem Schwartz on 09-18-2024 Hemoglobin (Reticulocytes) [Entitic mass] 27.8 pg Low 30-35 [facility] Reticulocytes Auto (Bld) [#/ Vol]Ordered By: Bassem Schwartz on 09-18-2024 Reticulocytes/100 RBC (Bld) 1.98 % High 0.5-1.5 [facility] Serum or plasma ferritin joshua surement (mass/volume)Ordered By: Bassem Schwartz on 09-18-2024 Ferritin [Mass/Vol] 21 ng/mL Low 22-378 [facility] Serum or plasma iron saturat ion measurement (mass fraction)Ordered By: Bassem Schwartz on 09-18-2024 Iron saturation [Mass fraction] 6.0 % Low 13-59 [facility] ALP [Catalytic activity/Vol] Ordered By: Carrillo Lenz on 09-17-2024 Serum or plasma alkaline phosphatase measurement 160 U/L High 35-104 [facility] Abdomen/Pelvis W IV Cont ONL Yon 09-17-2024 Abdomen/Pelvis W IV Cont ONLY Normal [facility] Absolute neutrophil countOrd ered By: Carrillo Lenz on 09-17-2024 Absolute neutrophil count 14.5 X10^3/uL High 2.0-7.7 [facility] Activated partial thrombopla stin time (aPTT) in platelet poor plasma by coagulation aOrdered By: Carrillo Lenz on 09-17-2024 aPTT Coag (PPP) [Time] 25.4 s 24.1-36.2 [facility] Albumin [Mass/Vol]Ordered By : Carrlilo Lenz on 09-17-2024 Serum or plasma albumin measurement (mass/volume) 5.0 g/dL High 3.4-4.8 [facility] Albumin/Globulin [Mass ratio ]Ordered By: Carrillo Lenz on 09-17-2024 Serum or plasma albumin/globulin mass ratio 1.1 RATIO 0.9-2.4 [facility] Anion gap [Moles/Vol]Ordered By: Carrillo Lenz on 09-17-2024 Anion gap in Serum or Plasma 17 High 5-15 [facility] Arterial patency Wrist arter y --pre arterial punctureOrdered By: ED PROVIDER on 09-17-2024 Assessment of wrist artery patency prior to arterial puncture Positive [facility] Assessment of wrist artery p atency prior to arterial punctureOrdered By: ED PROVIDER on 09-17-2024 Arterial patency Wrist artery --pre arterial puncture Positive [facility] BUN/creatinine ratioOrdered By: Carrillo Lenz on 09-17-2024 BUN/creatinine ratio 20.5 RATIO High 10-20 [facility] Base excess Calc (BldV) [Mol es/Vol]Ordered By: ED PROVIDER on 09-17-2024 Blood base excess determination -9 mmol/L Low -2-2 [facility] Basophil percentageOrdered B y: Carrillo Lenz on 09-17-2024 Basophil percentage 0.4 % 0-1 [facility] Beta hydroxybutyrate [Mass/V ol]Ordered By: Carrillo Lenz on 09-17-2024 Beta-hydroxybutyrate 0.1 mmol/L 0.0-0.3 [facility] Beta-Hydroxbytyrateon 2024 BETA-HYDROXYBUT 0.1 mmol/L Normal 0.0-0.3 [facility] Comment on above: Performed By: #### L 100.0100, L300.3900, L300.4310, L500.4050, L501.2450, L501.6901, L503.6005 ####[facility] [address] [place], [address] Beta-hydroxybutyrateOrdered By: Carrillo Lenz on 09-17-2024 Beta hydroxybutyrate [Mass/Vol] 0.1 mmol/L 0.0-0.3 [facility] Bilirubin Test strip Ql (U)O rdered By: Carrillo Lenz on 09-17-2024 Bilirubin Ql (U) Negative Negative [facility] Bilirubin, totalOrdered By: Carrillo Lenz on 09-17-2024 Bilirubin, total 0.40 mg/dL 0.00-1.30 [facility] Blood Gases by CPSon 025 JONO TEST Positive Normal [facility] Comment on above: Performed By: #### L 9000.0800 ####[facility] [address] [place], [address] Base excess Calc (Bld) [Moles/Vol] -9 mmol/L Low -2 to +2 [facility] Comment on above: Performed By: #### L 9000.0800 ####[facility] [address] [place], [address] Blood Gas Type ART Normal [facility] Comment on above: Performed By: #### L 9000.0800 ####[facility] [address] [place], [address] CO2 [Moles/Vol] 19 mmol/L Normal [facility] Comment on above: Performed By: #### L 9000.0800 ####[facility] [address] [place], [address] HCO3 (Bld) [Moles/Vol] 17.7 mmol/L Low 22-26 [facility] Comment on above: Performed By: #### L 9000.0800 ####[facility] [address] [place], [address] Mode Not entered Normal [facility] Comment on above: Performed By: #### L 9000.0800 ####[facility] [address] [place], [address] O2 Delivery Dev Room Air Normal [facility] Comment on above: Performed By: #### L 9000.0800 ####[facility] [address] [place], [address] pCO2 39.0 mmHg Normal 35-45 [facility] Comment on above: Performed By: #### L 9000.0800 ####[facility] [address] [place], [address] pH (Bld) 7.27 [pH] Low 7.35-7.45 [facility] Comment on above: Performed By: #### L 9000.0800 ####[facility] [address] [place], [address] PO2 80 mmHG Normal 75-100 [facility] Comment on above: Performed By: #### L 9000.0800 ####[facility] [address] [place], [address] SITE L Radial Normal [facility] Comment on above: Performed By: #### L 9000.0800 ####[facility] [address] [place], [address] SO2 94 Low 95-99 [facility] Comment on above: Performed By: #### L 9000.0800 ####[facility] [address] [place], [address] Blood base excess determinat ionOrdered By: ED PROVIDER on 09-17-2024 Base excess Calc (BldV) [Moles/Vol] -9 mmol/L Low -2-2 [facility] Blood bicarbonate measuremen tOrdered By: ED PROVIDER on 09-17-2024 HCO3 (Bld) [Moles/Vol] 17.7 mmol/L Low - [facility] Blood bicarbonate measurement 17.7 mmol/L Low - [facility] CBC W/Diff, Automatedon 04 Absolute Lymph 1.29 X10 3/uL Normal 0.83-4.51 [facility] Comment on above: Performed By: #### L 100.0100, L300.3900, L300.4310, L500.4050, L501.2450, L501.6901, L503.6005 ####[facility] [address] [place], [place], [phone]) Absolute Neut 14.5 X10 3/uL High 2.0-7.7 [facility] Comment on above: Performed By: #### L 100.0100, L300.3900, L300.4310, L500.4050, L501.2450, L501.6901, L503.6005 ####[facility] [address] [place], [place], [phone] Basophils/100 WBC (Bld) 0.4 % Normal 0-1 [facility] Comment on above: Performed By: #### L 100.0100, L300.3900, L300.4310, L500.4050, L501.2450, L501.6901, L503.6005 ####[facility] [address] [place], [address] Eosinophils/100 WBC (Bld) 0.5 % Normal 0-5 [facility] Comment on above: Performed By: #### L 100.0100, L300.3900, L300.4310, L500.4050, L501.2450, L501.6901, L503.6005 ####[facility] [address] [place], [address] Erythrocyte distribution width (RBC) [Ratio] 18.7 % High 11.6-14.6 [facility] Comment on above: Performed By: #### L 100.0100, L300.3900, L300.4310, L500.4050, L501.2450, L501.6901, L503.6005 ####[facility] [address] [place], [address] Hematocrit (Bld) [Volume fraction] 40.4 % Normal 37-47 [facility] Comment on above: Performed By: #### L 100.0100, L300.3900, L300.4310, L500.4050, L501.2450, L501.6901, L503.6005 ####[facility] [address] [place], [address] Hemoglobin (Bld) [Mass/Vol] 13.0 g/dL Normal 12.0-15.0 [facility] Comment on above: Performed By: #### L 100.0100, L300.3900, L300.4310, L500.4050, L501.2450, L501.6901, L503.6005 ####[facility] [address] [place], [address] IG% 0.500 Normal 0.0-0.9 [facility] Comment on above: Result Comment: IG% - Immature Granulocytes (promyelocytes, myelocytes andmetamyelocytes) > 1% indicates that a LEFT SHIFT is Present. Performed By: #### L 100.0100, L300.3900, L300.4310, L500.4050, L501.2450, L501.6901, L503.6005 ####[facility] [address] [place], [address] Lymphocytes/100 WBC (Bld) 7.7 % Low 19-41 [facility] Comment on above: Performed By: #### L 100.0100, L300.3900, L300.4310, L500.4050, L501.2450, L501.6901, L503.6005 ####[facility] [address] [place], [address] MCH (RBC) [Entitic mass] 27.4 pg Normal 27.0-32.0 [facility] Comment on above: Performed By: #### L 100.0100, L300.3900, L300.4310, L500.4050, L501.2450, L501.6901, L503.6005 ####[facility] [address] [place], [address] MCHC (RBC) [Mass/Vol] 32.2 g/dL Normal 32-36 [facility] Comment on above: Performed By: #### L 100.0100, L300.3900, L300.4310, L500.4050, L501.2450, L501.6901, L503.6005 ####[facility] [address] [place], [address] MCV (RBC) [Entitic vol] 85.1 fL Normal 81-99 [facility] Comment on above: Performed By: #### L 100.0100, L300.3900, L300.4310, L500.4050, L501.2450, L501.6901, L503.6005 ####[facility] [address] [place], [address] Monocytes/100 WBC (Bld) 3.6 % Normal 0-10 [facility] Comment on above: Performed By: #### L 100.0100, L300.3900, L300.4310, L500.4050, L501.2450, L501.6901, L503.6005 ####[facility] [address] [place], [address] Neutrophils/100 WBC (Bld) 87.3 % High 47-70 [facility] Comment on above: Performed By: #### L 100.0100, L300.3900, L300.4310, L500.4050, L501.2450, L501.6901, L503.6005 ####[facility] [address] [place], [address] Nucleated RBC (Bld) [#/Vol] 0 10*3/uL Normal 0-5 [facility] Comment on above: Performed By: #### L 100.0100, L300.3900, L300.4310, L500.4050, L501.2450, L501.6901, L503.6005 ####[facility] [address] [place], [address] Platelet mean volume (Bld) [Entitic vol] 8.9 fL Normal 6.2-12.0 [facility] Comment on above: Performed By: #### L 100.0100, L300.3900, L300.4310, L500.4050, L501.2450, L501.6901, L503.6005 ####[facility] [address] [place], [address] Platelets (Bld) [#/Vol] 716 10*3/uL High 150-450 [facility] Comment on above: Performed By: #### L 100.0100, L300.3900, L300.4310, L500.4050, L501.2450, L501.6901, L503.6005 ####[facility] [address] [place], [address] RBC (Bld) [#/Vol] 4.75 10*6/uL Normal 4.2-5.4 [facility] Comment on above: Performed By: #### L 100.0100, L300.3900, L300.4310, L500.4050, L501.2450, L501.6901, L503.6005 ####[facility] [address] [place], [address] RDW SD 58.6 fl High 35.1-43.9 [facility] Comment on above: Performed By: #### L 100.0100, L300.3900, L300.4310, L500.4050, L501.2450, L501.6901, L503.6005 ####[facility] [address] [place], [address] WBC (Bld) [#/Vol] 16.7 10*3/uL High 4.4-11.0 [facility] Comment on above: Performed By: #### L 100.0100, L300.3900, L300.4310, L500.4050, L501.2450, L501.6901, L503.6005 ####[facility] [address] [facility] [place], [address] Calcium [Mass/Vol]Ordered By : Carrillo Lenz on 09-17-2024 Serum or plasma calcium measurement (mass/volume) 10.5 mg/dL 7.6-11.0 [facility] Carbon dioxide, total [Moles /volume] in Central venous bloodOrdered By: Carrillo Lenz on 09-17-2024 Carbon dioxide, total [Moles/volume] in Central venous blood 19.6 mmol/L Low 21.0-32.0 [facility] Chloride assayOrdered By: Bayron Lenz on 09-17-2024 Chloride assay 86 mmol/L Low 98-108 [facility] Clarity (U)Ordered By: Carrillo Lenz on 09-17-2024 Urine clarity Clear Clear [facility] Color (U)Ordered By: Carrillo medina on 09-17-2024 Urine color determination Yellow Yellow [facility] Comprehensive Metabolic Prof ilon 09-17-2024 Albumin [Mass/Vol] 5.0 g/dL High 3.4-4.8 [facility] Comment on above: Performed By: #### L 100.0100, L300.3900, L300.4310, L500.4050, L501.2450, L501.6901, L503.6005 ####[facility] [address] [place], [address] Albumin/Globulin [Mass ratio] 1.1 {ratio} Normal 0.9-2.4 [facility] Comment on above: Performed By: #### L 100.0100, L300.3900, L300.4310, L500.4050, L501.2450, L501.6901, L503.6005 ####[facility] [address] [place], [address] ALK PHOS 160 U/L High 35-104 [facility] Comment on above: Performed By: #### L 100.0100, L300.3900, L300.4310, L500.4050, L501.2450, L501.6901, L503.6005 ####[facility] [address] [place], [address] ALT [Catalytic activity/Vol] 19 U/L Normal <=34 [facility] Comment on above: Performed By: #### L 100.0100, L300.3900, L300.4310, L500.4050, L501.2450, L501.6901, L503.6005 ####[facility] [address] [place], [address] AST [Catalytic activity/Vol] 19 U/L Normal <=31 [facility] Comment on above: Performed By: #### L 100.0100, L300.3900, L300.4310, L500.4050, L501.2450, L501.6901, L503.6005 ####[facility] [address] [place], [address] Bilirubin [Mass/Vol] 0.40 mg/dL Normal 0.00-1.30 [facility] Comment on above: Performed By: #### L 100.0100, L300.3900, L300.4310, L500.4050, L501.2450, L501.6901, L503.6005 ####[facility] [address] [place], [address] BUN/CRE 20.5 RATIO High 10-20 [facility] Comment on above: Performed By: #### L 100.0100, L300.3900, L300.4310, L500.4050, L501.2450, L501.6901, L503.6005 ####[facility] [address] [place], [address] Calcium [Mass/Vol] 10.5 mg/dL Normal 7.6-11.0 [facility] Comment on above: Performed By: #### L 100.0100, L300.3900, L300.4310, L500.4050, L501.2450, L501.6901, L503.6005 ####[facility] [address] [place], [address] Chloride [Moles/Vol] 86 mmol/L Low 98-108 [facility] Comment on above: Performed By: #### L 100.0100, L300.3900, L300.4310, L500.4050, L501.2450, L501.6901, L503.6005 ####[facility] [address] [place], [address] CO2 [Moles/Vol] 19.6 mmol/L Low 21.0-32.0 [facility] Comment on above: Performed By: #### L 100.0100, L300.3900, L300.4310, L500.4050, L501.2450, L501.6901, L503.6005 ####[facility] [address] [place], [address] Creatinine [Mass/Vol] 1.74 mg/dL High 0.70-1.20 [facility] Comment on above: Performed By: #### L 100.0100, L300.3900, L300.4310, L500.4050, L501.2450, L501.6901, L503.6005 ####[facility] [address] [place], [address] ECRCL 26.90 ml/min Low 50-250 [facility] Comment on above: Performed By: #### L 100.0100, L300.3900, L300.4310, L500.4050, L501.2450, L501.6901, L503.6005 ####[facility] [address] [place], [address] GAP 17 High 5-15 [facility] Comment on above: Performed By: #### L 100.0100, L300.3900, L300.4310, L500.4050, L501.2450, L501.6901, L503.6005 ####[facility] [address] [place], [address] GFR/1.73 sq M.predicted among non-blacks MDRD (S/P/Bld) [Vol rate/Area] 32 mL/min/{1.73_m2} Low >60 [facility] Comment on above: Result Comment: mL/m in/1.73m2 CKD-EPI Creatinine Equation (2020) Performed By: #### L 100.0100, L300.3900, L300.4310, L500.4050, L501.2450, L501.6901, L503.6005 ####[facility] [address] [place], [address] Globulin (S) [Mass/Vol] 4.4 g/dL High 2.2-4.2 [facility] Comment on above: Performed By: #### L 100.0100, L300.3900, L300.4310, L500.4050, L501.2450, L501.6901, L503.6005 ####[facility] [address] [place], [address] Glucose [Mass/Vol] 321 mg/dL High 70-99 [facility] Comment on above: Performed By: #### L 100.0100, L300.3900, L300.4310, L500.4050, L501.2450, L501.6901, L503.6005 ####[facility] [address] [place], [address] Potassium [Moles/Vol] 5.7 mmol/L High 3.3-5.1 [facility] Comment on above: Performed By: #### L 100.0100, L300.3900, L300.4310, L500.4050, L501.2450, L501.6901, L503.6005 ####[facility] [address] [place], [address] Sodium [Moles/Vol] 122 mmol/L Low 133-145 [facility] Comment on above: Performed By: #### L 100.0100, L300.3900, L300.4310, L500.4050, L501.2450, L501.6901, L503.6005 ####[facility] [address] [place], [address] T PROT 9.4 g/dL High 5.9-8.4 [facility] Comment on above: Performed By: #### L 100.0100, L300.3900, L300.4310, L500.4050, L501.2450, L501.6901, L503.6005 ####[facility] [address] [place], [address] Urea nitrogen [Mass/Vol] 36 mg/dL High 4-19 [facility] Comment on above: Performed By: #### L 100.0100, L300.3900, L300.4310, L500.4050, L501.2450, L501.6901, L503.6005 ####[facility] [address] [place], [address] Creatinine [Mass/Vol]Ordered By: Carrillo Lenz on 09-17-2024 Serum creatinine measurement (mass/volume) 1.74 mg/dL High 0.70-1.20 [facility] Emergency Department Summary on 09-17-2024 Emergency Department Summary Normal [facility] Eosinophil percentageOrdered By: Carrillo Lenz on 09-17-2024 Eosinophil percentage 0.5 % 0-5 [facility] Epithelial cells.squamous LM Ql (Urine sed)Ordered By: Carrillo Lenz on 09-17-2024 Squamous epithelial cells detection in urine sediment by light microscopy 5-10 SEEN /hpf 5-10 [facility] Erythrocyte distribution wid th (RBC) [Ratio]Ordered By: Carrillo Lenz on 09-17-2024 Erythrocyte distribution width ratio 18.7 % High 11.6-14.6 [facility] Erythrocyte distribution width standard deviation 58.6 fl High 35.1-43.9 [facility] Estimation of creatinine padma aranceOrdered By: Carrillo Lenz on 09-17-2024 Estimation of creatinine clearance 26.90 ml/min Low 50-250 [facility] GFR/1.73 sq M.predicted andrew g non-blacks MDRD (S/P/Bld) [Vol rate/Area]Ordered By: Carrillo Lenz on 09-17-2024 Glomerular filtration rate (GFR) estimation/1.73 sq m using serum, plasma, or whole b 32 Low >60 [facility] Glucose Ql (U)Ordered By: Bayron Lenz on 09-17-2024 Urine glucose detection 100 mg/dl High Normal [facility] Glucose [Mass/Vol]Ordered By : Carrillo Lenz on 09-17-2024 Serum glucose measurement (mass/volume) 321 mg/dL High 70-99 [facility] H AND P Exam - Hospitaliston 09-17-2024 H&P Exam - Hospitalist Normal [facility] Hematocrit Auto (Bld) [Volum e fraction]Ordered By: Carrillo Lenz on 09-17-2024 Automated blood hematocrit (percentage) 40.4 % 37-47 [facility] Hemoglobin measurementOrdere d By: Carrillo Lenz on 09-17-2024 Hemoglobin measurement 13.0 g/dL 12.0-15.0 [facility] Immature granulocytes/100 WB C Auto (Bld)Ordered By: Carrillo Lenz on 09-17-2024 Automated immature granulocyte percentage 0.500 % 0.0-0.9 [facility] International normalized rat io (INR) calculationOrdered By: Carrillo Lenz on 09-17-2024 International normalized ratio (INR) calculation 1.0 [facility] Ketones Test strip Ql (U)Ord ered By: Carrillo Lenz on 09-17-2024 Ketones Ql (U) Negative Negative [facility] Lactic Acidon 09-17-2024 Lactate [Moles/Vol] 2.7 mmol/L Invalid Interpretation Code 0.0-2.0 [facility] Comment on above: Order Comment: Y Result Comment: Crit ical Result(s) Called at: 2035 by: SETH LOWE??Results read back by same. Performed By: #### L 100.0100, L300.3900, L300.4310, L500.4050, L501.2450, L501.6901, L503.6005 ####[facility] [address] [place], [address] Lactic acid measurementOrder ed By: Carrillo Lenz on 09-17-2024 Lactic acid measurement 2.7 mmol/L High 0.0-2.0 [facility] Lipaseon 09-17-2024 Lipase [Catalytic activity/Vol] 37 U/L Normal 13-75 [facility] Comment on above: Result Comment: Adam richardson note:LIPASE revised reference range effective 22.New Lipase methodology. Expected to produce lower valuesthan the previous assay method.NEW Reference Range: 13 - 75 U/L Performed By: #### L 100.0100, L300.3900, L300.4310, L500.4050, L501.2450, L501.6901, L503.6005 ####[facility] [address] [place], [place], [address] Lipase measurementOrdered By : Carrillo Lenz on 09-17-2024 Lipase measurement 37 U/L 13-75 [facility] Lymphocytes Auto (Unsp spec) [#/Vol]Ordered By: Carrillo Lenz on 09-17-2024 Absolute lymphocyte count 1.29 X10^3/uL 0.83-4.51 [facility] Lymphocytes/100 WBC Auto (Un sp spec)Ordered By: Carrillo Lenz on 09-17-2024 Automated lymphocyte count as percentage of total leukocytes 7.7 % Low 19-41 [facility] MCV (RBC) [Entitic vol]Order ed By: Carrillo Lenz on 09-17-2024 MCV (mean corpuscular volume) determination 85.1 fL 81-99 [facility] Magnesiumon 09-17-2024 Magnesium [Mass/Vol] 1.3 mg/dL Low 1.5-2.2 [facility] Comment on above: Order Comment: Comme nts: May add to ED labsComments: may add to ED labs Performed By: #### L 501.2300, L501.5200 ####[facility] [address] [place], [place], [id number] Mean corpuscular hemoglobin (MCH) determinationOrdered By: Carrillo Lenz on 09-17-2024 Mean corpuscular hemoglobin (MCH) determination 27.4 pg 27.0-32.0 [facility] Mean corpuscular hemoglobin concentration (MCHC) determinationOrdered By: Carrillo Lenz on 09-17-2024 Mean corpuscular hemoglobin concentration (MCHC) determination 32.2 g/dL 32-36 [facility] Mean platelet volume determi nationOrdered By: Carrillo Lenz on 09-17-2024 Mean platelet volume determination 8.9 fl 6.2-12.0 [facility] Measurement, pHOrdered By: Trell Mabry PROVIDER on 09-17-2024 pH (Unsp spec) 7.27 [pH] Low 7.35-7.45 [facility] Monocyte percentageOrdered B y: Carrillo Lenz on 09-17-2024 Monocyte percentage 3.6 % 0-10 [facility] Mucus LM Ql (Urine sed)Order ed By: Carrillo Lenz on 09-17-2024 Mucus Ql (Urine sed) 0 SEEN /hpf [facility] Neutrophil percentageOrdered By: Carrillo Lenz on 09-17-2024 Neutrophil percentage 87.3 % High 47-70 [facility] Nitrite Test strip Ql (U)Ord ered By: Carrillo Lenz on 09-17-2024 Nitrite Ql (U) Negative Negative [facility] No Panel InformationOrdered By: ED PROVIDER on 09-17-2024 ART [facility] L Radial [facility] Not entered [facility] Room Air [facility] Nucleated red blood cell per centageOrdered By: Carrillo Lenz on 09-17-2024 Nucleated red blood cell percentage 0 % 0-5 [facility] Oxygen saturation measuremen tOrdered By: ED PROVIDER on 09-17-2024 Oxygen saturation measurement 94 % Low 95-99 [facility] Partial Thromboplast Timeon 09-17-2024 aPTT Coag (Bld) [Time] 25.4 s Normal 24.1-36.2 [facility] Comment on above: Performed By: #### L 100.0100, L300.3900, L300.4310, L500.4050, L501.2450, L501.6901, L503.6005 ####[facility] [address] [place], [address] Partial pressure of carbon d ioxide measurementOrdered By: ED PROVIDER on 09-17-2024 Partial pressure of carbon dioxide measurement 39.0 mmHg 35-45 [facility] Partial pressure of oxygen m easurementOrdered By: ED PROVIDER on 09-17-2024 Partial pressure of oxygen measurement 80 mmHG 75-100 [facility] Phosphoruson 09-17-2024 Phosphate [Mass/Vol] 3.5 mg/dL Normal 2.7-4.5 [facility] Comment on above: Order Comment: Comme nts: May add to ED labsComments: may add to ED labs Performed By: #### L 501.2300, L501.5200 ####[facility] [address] [place], [address] Platelet countOrdered By: Bayron Lenz on 09-17-2024 Platelet count 716 K/mm3 High 150-450 [facility] Potassium (Unsp spec) [Mass/ Vol]Ordered By: Carrillo Lenz on 09-17-2024 Potassium measurement (mass/volume) 5.7 mmol/L High 3.3-5.1 [facility] Protein Test strip Ql (U)Ord ered By: Carrillo Lenz on 09-17-2024 Protein Ql (U) 30 mg/dl High Negative [facility] Urine protein assay by test strip, semi-quantitative 30 mg/dl High Negative [facility] Prothrombin Time w/INRon INR Coag (PPP) [Relative time] 1.0 {INR} Normal [facility] Comment on above: Performed By: #### L 100.0100, L300.3900, L300.4310, L500.4050, L501.2450, L501.6901, L503.6005 ####[facility] [address] [place], [address] Prothrombin timeOrdered By: Carrillo Lenz on 09-17-2024 PT Coag (PPP) [Time] 13.4 s Normal 11.7-14.9 [facility] Comment on above: Performed By: #### L 100.0100, L300.3900, L300.4310, L500.4050, L501.2450, L501.6901, L503.6005 ####[facility] [address] [place], [address] Prothrombin time 13.4 SECONDS 11.7-14.9 [facility] RBC Auto (Bld) [#/Vol]Ordere d By: Carrillo Lenz on 09-17-2024 Automated blood erythrocyte count 4.75 M/mm3 4.2-5.4 [facility] Serum globulin measurementOr dered By: Carrillo Lenz on 09-17-2024 Serum globulin measurement 4.4 g/dL High 2.2-4.2 [facility] Serum or plasma alanine reese otransferase (ALT) measurementOrdered By: Carrillo Lenz on 09-17-2024 Serum or plasma alanine aminotransferase (ALT) measurement 19 U/L <35 [facility] Sodium levelOrdered By: Carrillo Lenz on 09-17-2024 Sodium level 122 mmol/L Low 133-145 [facility] Specific gravity (U) [Rel de nsity]Ordered By: Carrillo Lenz on 09-17-2024 Urine specific gravity measurement 1.015 1.002-1.03 0 [facility] Squamous epithelial cells de tection in urine sediment by light microscopyOrdered By: Carrillo Lenz on 09-17-2024 Epithelial cells.squamous LM Ql (Urine sed) 5-10 SEEN /hpf 5-10 [facility] Total carbon dioxide measure mentOrdered By: ED PROVIDER on 09-17-2024 CO2 [Moles/Vol] 19 mmol/L [facility] Total carbon dioxide measurement 19 mmol/L [facility] Total proteinOrdered By: Erica Lenz on 09-17-2024 Total protein 9.4 g/dL High 5.9-8.4 [facility] Urea nitrogen [Mass/Vol]Orde red By: Carrillo Lenz on 09-17-2024 Serum or plasma urea nitrogen measurement (mass/volume) 36 mg/dL High 4-19 [facility] Urinalysis, Completeon 09-17 EPI,SQUAMOUS 5-10 SEEN Normal 5-10 [facility] Comment on above: Order Comment: CLEAN CATCH Performed By: #### L 400.0001 ####[facility] [address] [place], [place], [id number] RBC 0-5 SEEN Normal 0-5 [facility] Comment on above: Order Comment: CLEAN CATCH Performed By: #### L 400.0001 ####[facility] [address] [place], [place], [id number] WBC 0-5 SEEN Normal 0-5 [facility] Comment on above: Order Comment: CLEAN CATCH Performed By: #### L 400.0001 ####[facility] [address] [place], [address] BACTERIA 0 SEEN Normal None Seen [facility] Comment on above: Order Comment: CLEAN CATCH Performed By: #### L 400.0001 ####[facility] [address] [place], [address] Mucus Ql (Urine sed) 0 SEEN Normal [facility] Comment on above: Order Comment: CLEAN CATCH Performed By: #### L 400.0001 ####[facility] [address] [place], [place], [id number] Urine clarityOrdered By: Erica Lenz on 09-17-2024 Clarity (U) Clear Clear [facility] Urine color determinationOrd ered By: Carrillo Lenz on 09-17-2024 Color (U) Yellow Yellow [facility] Urine glucose detectionOrder ed By: Carrillo Lenz on 09-17-2024 Glucose Ql (U) 100 mg/dl High Normal [facility] Urine leukocyte esterase det ection by dipstickOrdered By: Carrillo Lenz on 09-17-2024 Leukocyte esterase Test strip Ql (U) Negative Negative [facility] Urine pHOrdered By: Carrillo conner on 09-17-2024 pH (U) 6.0 [pH] 5.0 - 8.0 [facility] Urine sediment bacteria coun t by microscopy (number/high power field)Ordered By: Carrillo Lenz on 09-17-2024 Bacteria LM.HPF (Urine sed) [#/Area] 0 /[HPF] None Seen [facility] Urine sediment bacteria count by microscopy (number/high power field) 0 SEEN /hpf [facility] Urine specific gravity measu rementOrdered By: Carrillo Lenz on 09-17-2024 Specific gravity (U) [Rel density] 1.015 1.002-1.03 0 [facility] Urine total bilirubin detect ion by test stripOrdered By: Carrillo Lenz on 09-17-2024 Urine total bilirubin detection by test strip Negative Negative [facility] Urine urobilinogen measureme ntOrdered By: Carrillo Lenz on 09-17-2024 Urobilinogen Ql (U) Normal mg/dl Normal [facility] Urobilinogen Ql (U)Ordered B y: Carrillo Lenz on 09-17-2024 Urine urobilinogen measurement Normal mg/dl Normal [facility] White blood cell (WBC) count Ordered By: Carrillo Lenz on 09-17-2024 White blood cell (WBC) count 16.7 K/mm3 High 4.4-11.0 [facility] White blood cell countOrdere d By: Carrillo Lenz on 09-17-2024 White blood cell count 0-5 SEEN /hpf 0-5 [facility] White blood cell count 0-5 SEEN /hpf 0-5 [facility] aPTT Coag (PPP) [Time]Ordere d By: Carrillo Lenz on 09-17-2024 Activated partial thromboplastin time (aPTT) in platelet poor plasma by coagulation a 25.4 Seconds 24.1-36.2 [facility] pH (U)Ordered By: Carrillo frey on 09-17-2024 Urine pH 6.0 5.0 - 8.0 [facility] pH (Unsp spec)Ordered By: ED PROVIDER on 09-17-2024 Measurement, pH 7.27 Low 7.35-7.45 [facility] ALP [Catalytic activity/Vol] Ordered By: Denise Uribe on 07-24-2024 Serum or plasma alkaline phosphatase measurement 123 U/L High 35-104 [facility] ALT [Catalytic activity/Vol] Ordered By: Denise Uribe on 07-24-2024 Serum or plasma alanine aminotransferase (ALT) measurement 7 U/L <35 [facility] Absolute lymphocyte countOrd ered By: Denise Uribe on 07-24-2024 Lymphocytes Auto (Unsp spec) [#/Vol] 2.18 10*3/uL 0.83-4.51 [facility] Absolute neutrophil countOrd ered By: Denise Uribe on 07-24-2024 Absolute neutrophil count 8.0 X10^3/uL High 2.0-7.7 [facility] Albumin [Mass/Vol]Ordered By : Denise Uribe on 07-24-2024 Serum or plasma albumin measurement (mass/volume) 4.0 g/dL 3.4-4.8 [facility] Albumin/Globulin [Mass ratio ]Ordered By: Denise Uribe on 07-24-2024 Serum or plasma albumin/globulin mass ratio 1.2 RATIO 0.9-2.4 [facility] Anion gap [Moles/Vol]Ordered By: Denise Uribe on 07-24-2024 Anion gap in Serum or Plasma 15 5- [facility] Anion gap in Serum or Plasma Ordered By: Denisemario Uribe on 07-24-2024 Anion gap [Moles/Vol] 15 mmol/L 10-03 [facility] Automated lymphocyte count a s percentage of total leukocytesOrdered By: Denise Uribe on 07-24-2024 Lymphocytes/100 WBC Auto (Unsp spec) 19.2 % 19-41 [facility] BUN/creatinine ratioOrdered By: Denise Uribe on 07-24-2024 Urea nitrogen/Creatinine [Mass ratio] 16.4 mg/mg 10- [facility] BUN/creatinine ratio 16.4 RATIO 10-20 [facility] Basophil percentageOrdered B y: Denise Uribe on 07-24-2024 Basophils/100 WBC (Bld) 0.4 % 0-1 [facility] Basophil percentage 0.4 % 0-1 [facility] Bilirubin, totalOrdered By: Denise Uribe on 07-24-2024 Bilirubin [Mass/Vol] 0.28 mg/dL 0.00-1.30 [facility] Bilirubin, total 0.28 mg/dL 0.00-1.30 [facility] CBC W/Diff, Automatedon Absolute Lymph 2.18 X10 3/uL Normal 0.83-4.51 [facility] Comment on above: Performed By: #### L 100.0100, L500.4050, L503.0106, L503.6030, L503.6550, L506.1001 ####[facility] [address] [place], [address] Absolute Neut 8.0 X10 3/uL High 2.0-7.7 [facility] Comment on above: Performed By: #### L 100.0100, L500.4050, L503.0106, L503.6030, L503.6550, L506.1001 ####[facility] [address] [place], [address] Basophils/100 WBC (Bld) 0.4 % Normal 0-1 [facility] Comment on above: Performed By: #### L 100.0100, L500.4050, L503.0106, L503.6030, L503.6550, L506.1001 ####[facility] [address] [place], [address] Eosinophils/100 WBC (Bld) 2.2 % Normal 0-5 [facility] Comment on above: Performed By: #### L 100.0100, L500.4050, L503.0106, L503.6030, L503.6550, L506.1001 ####[facility] [address] [place], [address] Erythrocyte distribution width (RBC) [Ratio] 17.5 % High 11.6-14.6 [facility] Comment on above: Performed By: #### L 100.0100, L500.4050, L503.0106, L503.6030, L503.6550, L506.1001 ####[facility] [address] [place], [address] Hematocrit (Bld) [Volume fraction] 25.9 % Low 37-47 [facility] Comment on above: Performed By: #### L 100.0100, L500.4050, L503.0106, L503.6030, L503.6550, L506.1001 ####[facility] [address] [place], [address] Hemoglobin (Bld) [Mass/Vol] 8.1 g/dL Low 12.0-15.0 [facility] Comment on above: Performed By: #### L 100.0100, L500.4050, L503.0106, L503.6030, L503.6550, L506.1001 ####[facility] [address] [place], [address] IG% 1.200 High 0.0-0.9 [facility] Comment on above: Result Comment: IG% - Immature Granulocytes (promyelocytes, myelocytes andmetamyelocytes) > 1% indicates that a LEFT SHIFT is Present. Performed By: #### L 100.0100, L500.4050, L503.0106, L503.6030, L503.6550, L506.1001 ####[facility] [address] [place], [address] Lymphocytes/100 WBC (Bld) 19.2 % Normal 19-41 [facility] Comment on above: Performed By: #### L 100.0100, L500.4050, L503.0106, L503.6030, L503.6550, L506.1001 ####[facility] [address] [place], [address] MCH (RBC) [Entitic mass] 27.7 pg Normal 27.0-32.0 [facility] Comment on above: Performed By: #### L 100.0100, L500.4050, L503.0106, L503.6030, L503.6550, L506.1001 ####[facility] [address] [place], [address] MCHC (RBC) [Mass/Vol] 31.3 g/dL Low 32-36 [facility] Comment on above: Performed By: #### L 100.0100, L500.4050, L503.0106, L503.6030, L503.6550, L506.1001 ####[facility] [address] [place], [address] MCV (RBC) [Entitic vol] 88.7 fL Normal 81-99 [facility] Comment on above: Performed By: #### L 100.0100, L500.4050, L503.0106, L503.6030, L503.6550, L506.1001 ####[facility] [address] [place], [address] Monocytes/100 WBC (Bld) 7.0 % Normal 0-10 [facility] Comment on above: Performed By: #### L 100.0100, L500.4050, L503.0106, L503.6030, L503.6550, L506.1001 ####[facility] [address] [place], [address] Neutrophils/100 WBC (Bld) 70.0 % Normal 47-70 [facility] Comment on above: Performed By: #### L 100.0100, L500.4050, L503.0106, L503.6030, L503.6550, L506.1001 ####[facility] [address] [place], [address] Nucleated RBC (Bld) [#/Vol] 0.2 10*3/uL Normal 0-5 [facility] Comment on above: Performed By: #### L 100.0100, L500.4050, L503.0106, L503.6030, L503.6550, L506.1001 ####[facility] [address] [place], [address] Platelet mean volume (Bld) [Entitic vol] 9.3 fL Normal 6.2-12.0 [facility] Comment on above: Performed By: #### L 100.0100, L500.4050, L503.0106, L503.6030, L503.6550, L506.1001 ####[facility] [address] [place], [address] Platelets (Bld) [#/Vol] 541 10*3/uL High 150-450 [facility] Comment on above: Performed By: #### L 100.0100, L500.4050, L503.0106, L503.6030, L503.6550, L506.1001 ####[facility] [address] [place], [address] RBC (Bld) [#/Vol] 2.92 10*6/uL Low 4.2-5.4 [facility] Comment on above: Performed By: #### L 100.0100, L500.4050, L503.0106, L503.6030, L503.6550, L506.1001 ####[facility] [address] [place], [address] RDW SD 56.3 fl High 35.1-43.9 [facility] Comment on above: Performed By: #### L 100.0100, L500.4050, L503.0106, L503.6030, L503.6550, L506.1001 ####[facility] [address] [place], [address] WBC (Bld) [#/Vol] 11.4 10*3/uL High 4.4-11.0 [facility] Comment on above: Performed By: #### L 100.0100, L500.4050, L503.0106, L503.6030, L503.6550, L506.1001 ####[facility] [address] [place], [address] Calcium [Mass/Vol]Ordered By : Denise Uribe on 07-24-2024 Serum or plasma calcium measurement (mass/volume) 9.0 mg/dL 7.6-11.0 [facility] Calculated total iron bindin g capacityOrdered By: Denise Uribe on 07-24-2024 Calculated total iron binding capacity 449 ug/dL 250-450 [facility] Carbon dioxide, total [Moles /volume] in Central venous bloodOrdered By: Denise Uribe on 07-24-2024 CO2 [Moles/Vol] 23.7 mmol/L 21.0-32.0 [facility] Carbon dioxide, total [Moles/volume] in Central venous blood 23.7 mmol/L 21.0-32.0 [facility] Chloride assayOrdered By: Jann Uribe on 07-24-2024 Chloride [Moles/Vol] 93 mmol/L Low 98-108 [facility] Chloride assay 93 mmol/L Low 98-108 [facility] Cobalamin (Vitamin B12) [Mas s/Vol]Ordered By: Denise Uribe on 07-24-2024 Vitamin B12 ser/plas 639 pg/mL 180-914 [facility] Comprehensive Metabolic Prof ilon 07-24-2024 Albumin [Mass/Vol] 4.0 g/dL Normal 3.4-4.8 [facility] Comment on above: Performed By: #### L 100.0100, L500.4050, L503.0106, L503.6030, L503.6550, L506.1001 ####[facility] [address] [place], [address] Albumin/Globulin [Mass ratio] 1.2 {ratio} Normal 0.9-2.4 [facility] Comment on above: Performed By: #### L 100.0100, L500.4050, L503.0106, L503.6030, L503.6550, L506.1001 ####[facility] [address] [place], [address] ALK PHOS 123 U/L High 35-104 [facility] Comment on above: Performed By: #### L 100.0100, L500.4050, L503.0106, L503.6030, L503.6550, L506.1001 ####[facility] [address] [place], [address] ALT [Catalytic activity/Vol] 7 U/L Normal <=34 [facility] Comment on above: Performed By: #### L 100.0100, L500.4050, L503.0106, L503.6030, L503.6550, L506.1001 ####[facility] [address] [place], [address] AST [Catalytic activity/Vol] 19 U/L Normal <=31 [facility] Comment on above: Performed By: #### L 100.0100, L500.4050, L503.0106, L503.6030, L503.6550, L506.1001 ####[facility] [address] [place], [address] Bilirubin [Mass/Vol] 0.28 mg/dL Normal 0.00-1.30 [facility] Comment on above: Performed By: #### L 100.0100, L500.4050, L503.0106, L503.6030, L503.6550, L506.1001 ####[facility] [address] [place], [address] BUN/CRE 16.4 RATIO Normal 10-20 [facility] Comment on above: Performed By: #### L 100.0100, L500.4050, L503.0106, L503.6030, L503.6550, L506.1001 ####[facility] [address] [place], [address] Calcium [Mass/Vol] 9.0 mg/dL Normal 7.6-11.0 [facility] Comment on above: Performed By: #### L 100.0100, L500.4050, L503.0106, L503.6030, L503.6550, L506.1001 ####[facility] [address] [place], [address] Chloride [Moles/Vol] 93 mmol/L Low 98-108 [facility] Comment on above: Performed By: #### L 100.0100, L500.4050, L503.0106, L503.6030, L503.6550, L506.1001 ####[facility] [address] [place], [address] CO2 [Moles/Vol] 23.7 mmol/L Normal 21.0-32.0 [facility] Comment on above: Performed By: #### L 100.0100, L500.4050, L503.0106, L503.6030, L503.6550, L506.1001 ####[facility] [address] [place], [address] Creatinine [Mass/Vol] 1.16 mg/dL Normal 0.70-1.20 [facility] Comment on above: Performed By: #### L 100.0100, L500.4050, L503.0106, L503.6030, L503.6550, L506.1001 ####[facility] [address] [place], [address] GAP 15 Normal 5-15 [facility] Comment on above: Performed By: #### L 100.0100, L500.4050, L503.0106, L503.6030, L503.6550, L506.1001 ####[facility] [address] [place], [address] GFR/1.73 sq M.predicted among non-blacks MDRD (S/P/Bld) [Vol rate/Area] 51 mL/min/{1.73_m2} Low >60 [facility] Comment on above: Result Comment: mL/m in/1.73m2 CKD-EPI Creatinine Equation (2020) Performed By: #### L 100.0100, L500.4050, L503.0106, L503.6030, L503.6550, L506.1001 ####[facility] [address] [place], [address] Globulin (S) [Mass/Vol] 3.3 g/dL Normal 2.2-4.2 [facility] Comment on above: Performed By: #### L 100.0100, L500.4050, L503.0106, L503.6030, L503.6550, L506.1001 ####[facility] [address] [place], [address] Glucose [Mass/Vol] 196 mg/dL High 70-99 [facility] Comment on above: Performed By: #### L 100.0100, L500.4050, L503.0106, L503.6030, L503.6550, L506.1001 ####[facility] [address] [place], [address] Potassium [Moles/Vol] 4.5 mmol/L Normal 3.3-5.1 [facility] Comment on above: Performed By: #### L 100.0100, L500.4050, L503.0106, L503.6030, L503.6550, L506.1001 ####[facility] [address] [place], [address] Sodium [Moles/Vol] 132 mmol/L Low 133-145 [facility] Comment on above: Performed By: #### L 100.0100, L500.4050, L503.0106, L503.6030, L503.6550, L506.1001 ####[facility] [address] [place], [address] T PROT 7.3 g/dL Normal 5.9-8.4 [facility] Comment on above: Performed By: #### L 100.0100, L500.4050, L503.0106, L503.6030, L503.6550, L506.1001 ####[facility] [address] [place], [place], [id number] Urea nitrogen [Mass/Vol] 19 mg/dL Normal 4-19 [facility] Comment on above: Performed By: #### L 100.0100, L500.4050, L503.0106, L503.6030, L503.6550, L506.1001 ####[facility] [address] [facility] [address] [place], [place], [address] Creatinine [Mass/Vol]Ordered By: Denise Uribe on 07-24-2024 Serum creatinine measurement (mass/volume) 1.16 mg/dL 0.70-1.20 [facility] Eosinophil percentageOrdered By: Denise Uribe on 07-24-2024 Eosinophils/100 WBC (Bld) 2.2 % 0-5 [facility] Eosinophil percentage 2.2 % 0-5 [facility] Erythrocyte distribution wid th (RBC) [Ratio]Ordered By: Denise Uribe on 07-24-2024 Erythrocyte distribution width ratio 17.5 % High 11.6-14.6 [facility] Erythrocyte distribution wid th ratioOrdered By: Denise Uribe on 07-24-2024 Erythrocyte distribution width (RBC) [Ratio] 17.5 % High 11.6-14.6 [facility] Erythrocyte distribution wid th standard deviationOrdered By: Denise Uribe on 07-24-2024 Erythrocyte distribution width (RBC) [Ratio] 56.3 fl High 35.1-43.9 [facility] Erythrocyte distribution width standard deviation 56.3 fl High 35.1-43.9 [facility] Ferritinon 07-24-2024 Ferritin [Mass/Vol] 19 ng/mL Low 22-378 [facility] Comment on above: Performed By: #### L 100.0100, L500.4050, L503.0106, L503.6030, L503.6550, L506.1001 ####[facility] [address] [place], [address] Ferritin [Mass/Vol]Ordered B y: Denise Uribe on 07-24-2024 Serum or plasma ferritin measurement (mass/volume) 19 ng/mL Low 22-378 [facility] GFR/1.73 sq M.predicted andrew g non-blacks MDRD (S/P/Bld) [Vol rate/Area]Ordered By: Denise Uribe on 07-24-2024 Glomerular filtration rate (GFR) estimation/1.73 sq m using serum, plasma, or whole b 51 Low >60 [facility] Glomerular filtration rate ( GFR) estimation/1.73 sq m using serum, plasma, or whole bOrdered By: Denise Uribe on 07-24-2024 GFR/1.73 sq M.predicted among non-blacks MDRD (S/P/Bld) [Vol rate/Area] 51 mL/min/{1.73_m2} Low >60 [facility] Glucose [Mass/Vol]Ordered By : Denise Uribe on 07-24-2024 Serum glucose measurement (mass/volume) 196 mg/dL High 70-99 [facility] Hematocrit Auto (Bld) [Volum e fraction]Ordered By: Denise Uribe on 07-24-2024 Hematocrit (Bld) [Volume fraction] 25.9 % Low 37-47 [facility] Automated blood hematocrit (percentage) 25.9 % Low 37-47 [facility] Hemoglobin measurementOrdere d By: Denise Uribe on 07-24-2024 Hemoglobin (Bld) [Mass/Vol] 8.1 g/dL Low 12.0-15.0 [facility] Hemoglobin measurement 8.1 g/dL Low 12.0-15.0 [facility] Immature granulocytes/100 WB C Auto (Bld)Ordered By: Denise Uribe on 07-24-2024 Immature granulocytes/100 WBC (Bld) 1.200 % High 0.0-0.9 [facility] Automated immature granulocyte percentage 1.200 % High 0.0-0.9 [facility] Iron (Unsp spec) [Mass/Mass] Ordered By: Denise Uribe on 07-24-2024 Iron measurement (mass/mass) 34 ug/dL Low 50-170 [facility] Iron measurement (mass/mass) Ordered By: Denise Uribe on 07-24-2024 Iron (Unsp spec) [Mass/Mass] 34 ug/dL Low 50-170 [facility] Iron saturation [Mass fracti on]Ordered By: Denise Princelay on 07-24-2024 Serum or plasma iron saturation measurement (mass fraction) 8.0 % Low 15.0-55.0 [facility] Iron+Iron Binding Capacityon 07-24-2024 Iron [Mass/Vol] 34 ug/dL Low 50-170 [facility] Comment on above: Performed By: #### L 100.0100, L500.4050, L503.0106, L503.6030, L503.6550, L506.1001 ####[facility] [address] [place], [address] IRON SATURATION 8.0 Low 15.0-55.0 [facility] Comment on above: Performed By: #### L 100.0100, L500.4050, L503.0106, L503.6030, L503.6550, L506.1001 ####[facility] [address] [place], [address] TIBC 449 ug/dL Normal 250-450 [facility] Comment on above: Performed By: #### L 100.0100, L500.4050, L503.0106, L503.6030, L503.6550, L506.1001 ####[facility] [address] [place], [address] UIBC 415 ug/dL Normal 228-428 [facility] Comment on above: Performed By: #### L 100.0100, L500.4050, L503.0106, L503.6030, L503.6550, L506.1001 ####[facility] [address] [place], [address] L503.0106on 07-24-2024 Cobalamin (Vitamin B12) [Mass/Vol] 639 pg/mL Normal 180-914 [facility] Comment on above: Performed By: #### L 100.0100, L500.4050, L503.0106, L503.6030, L503.6550, L506.1001 ####[facility] [address] [place], [address] L506.1001on 07-24-2024 Vitamin D 25-OH 24.4 ng/mL Low 30-100 [facility] Comment on above: Result Comment: Deborah min D StatusDeficiency: <20 ng/mL (50nmol/L)Insufficiency: 20-30 ng/mL (50-75 nmol/L)Sufficiency: 30-100 ng/mL (75-250 nmol/L)Toxicity: >100 ng/mL (>250 nmol/L) Performed By: #### L 100.0100, L500.4050, L503.0106, L503.6030, L503.6550, L506.1001 ####[facility] [address] [place], [place], [address] Lymphocytes Auto (Unsp spec) [#/Vol]Ordered By: Denise Uribe on 07-24-2024 Absolute lymphocyte count 2.18 X10^3/uL 0.83-4.51 [facility] Lymphocytes/100 WBC Auto (Un sp spec)Ordered By: Denise Uribe on 07-24-2024 Automated lymphocyte count as percentage of total leukocytes 19.2 % 19-41 [facility] MCV (RBC) [Entitic vol]Order ed By: Denise Uribe on 07-24-2024 MCV (mean corpuscular volume) determination 88.7 fL 81-99 [facility] MCV (mean corpuscular volume ) determinationOrdered By: Denise Uribe on 07-24-2024 MCV (RBC) [Entitic vol] 88.7 fL 81-99 [facility] Mean corpuscular hemoglobin (MCH) determinationOrdered By: Denise Uribe on 07-24-2024 MCH (RBC) [Entitic mass] 27.7 pg 27.0-32.0 [facility] Mean corpuscular hemoglobin (MCH) determination 27.7 pg 27.0-32.0 [facility] Mean corpuscular hemoglobin concentration (MCHC) determinationOrdered By: Denise Uribe on 07-24-2024 Mean corpuscular hemoglobin concentration (MCHC) determination 31.3 g/dL Low 32-36 [facility] Mean platelet volume determi nationOrdered By: Denies Uribe on 07-24-2024 Mean platelet volume determination 9.3 fl 6.2-12.0 [facility] Monocyte percentageOrdered B y: Denise Uribe on 07-24-2024 Monocytes/100 WBC (Bld) 7.0 % 0-10 [facility] Monocyte percentage 7.0 % 0-10 [facility] Neutrophil percentageOrdered By: Denise Uribe on 07-24-2024 Neutrophils/100 WBC (Bld) 70.0 % 47-70 [facility] Neutrophil percentage 70.0 % 47-70 [facility] No Panel InformationOrdered By: Denise Uribe on 07-24-2024 19 U/L <32 [facility] 415 ug/dL 228-428 [facility] 9.4 % High 4.2-6.3 [facility] Nucleated red blood cell per centageOrdered By: Denise Uribe on 07-24-2024 Nucleated red blood cell percentage 0.2 % 0-5 [facility] Platelet countOrdered By: Jann Uribe on 07-24-2024 Platelets (Bld) [#/Vol] 541 10*3/uL High 150-450 [facility] Platelet count 541 K/mm3 High 150-450 [facility] Potassium (Unsp spec) [Mass/ Vol]Ordered By: Denise Uribe on 07-24-2024 Potassium measurement (mass/volume) 4.5 mmol/L 3.3-5.1 [facility] Potassium measurement (mass/ volume)Ordered By: Denise Uribe on 07-24-2024 Potassium (Unsp spec) [Mass/Vol] 4.5 mmol/L 3.3-5.1 [facility] RBC Auto (Bld) [#/Vol]Ordere d By: Denise Uribe on 07-24-2024 RBC (Bld) [#/Vol] 2.92 10*6/uL Low 4.2-5.4 [facility] Automated blood erythrocyte count 2.92 M/mm3 Low 4.2-5.4 [facility] Serum creatinine measurement (mass/volume)Ordered By: Denise Uribe on 07-24-2024 Creatinine [Mass/Vol] 1.16 mg/dL 0.70-1.20 [facility] Serum globulin measurementOr dered By: Denise Uribe on 07-24-2024 Globulin (S) [Mass/Vol] 3.3 g/dL 2.2-4.2 [facility] Serum globulin measurement 3.3 g/dL 2.2-4.2 [facility] Serum glucose measurement (m ass/volume)Ordered By: Denise Uribe on 07-24-2024 Glucose [Mass/Vol] 196 mg/dL High 70-99 [facility] Serum or plasma alanine reese otransferase (ALT) measurementOrdered By: Denise Uribe on 07-24-2024 ALT [Catalytic activity/Vol] 7 U/L <35 [facility] Serum or plasma albumin jamey urement (mass/volume)Ordered By: Denise Uribe on 07-24-2024 Albumin [Mass/Vol] 4.0 g/dL 3.4-4.8 [facility] Serum or plasma albumin/glob ulin mass ratioOrdered By: Denise Uribe on 07-24-2024 Albumin/Globulin [Mass ratio] 1.2 {ratio} 0.9-2.4 [facility] Serum or plasma alkaline osman sphatase measurementOrdered By: Denise Uribe on 07-24-2024 ALP [Catalytic activity/Vol] 123 U/L High 35-104 [facility] Serum or plasma calcium jamey urement (mass/volume)Ordered By: Denise Uribe on 07-24-2024 Calcium [Mass/Vol] 9.0 mg/dL 7.6-11.0 [facility] Serum or plasma ferritin joshua surement (mass/volume)Ordered By: Denise Uribe on 07-24-2024 Ferritin [Mass/Vol] 19 ng/mL Low 22-378 [facility] Serum or plasma iron saturat ion measurement (mass fraction)Ordered By: Denise Uribe on 07-24-2024 Iron saturation [Mass fraction] 8.0 % Low 15.0-55.0 [facility] Serum or plasma urea nitroge n measurement (mass/volume)Ordered By: Denise Uribe on 07-24-2024 Urea nitrogen [Mass/Vol] 19 mg/dL - [facility] Sodium levelOrdered By: Misael Uribe on 07-24-2024 Sodium [Moles/Vol] 132 mmol/L Low 133-145 [facility] Sodium level 132 mmol/L Low 133-145 [facility] Total proteinOrdered By: Mina Uribe on 07-24-2024 Protein [Mass/Vol] 7.3 g/dL 5.9-8.4 [facility] Total protein 7.3 g/dL 5.9-8.4 [facility] Urea nitrogen [Mass/Vol]Orde red By: Denise Uribe on 07-24-2024 Serum or plasma urea nitrogen measurement (mass/volume) 19 mg/dL - [facility] Vitamin B12 ser/plasOrdered By: Denise Uribe on 07-24-2024 Cobalamin (Vitamin B12) [Mass/Vol] 639 pg/mL 180-914 [facility] Vitamin D, 25-hydroxyOrdered By: Denise Uribe on 07-24-2024 Vitamin D, 25-hydroxy 24.4 ng/mL Low 30-100 [facility] White blood cell (WBC) count Ordered By: Denise Uribe on 07-24-2024 WBC (Bld) [#/Vol] 11.4 10*3/uL High 4.4-11.0 [facility] White blood cell (WBC) count 11.4 K/mm3 High 4.4-11.0 [facility] Internal Medicine Office Vis chloé 07-23-2024 Internal Medicine Office Visit Normal [facility] Basic Metabolic Profile (BMP )on 06-18-2024 BUN/CRE 13.4 RATIO Normal 10-20 [facility] Comment on above: Performed By: #### L 500.2500, L501.5200 ####[facility] [address] [place], [address] CA,Total 9.4 mg/dL Normal 8.5-10.1 [facility] Comment on above: Performed By: #### L 500.2500, L501.5200 ####[facility] [address] [place], [address] Chloride [Moles/Vol] 104 mmol/L Normal 98-107 [facility] Comment on above: Performed By: #### L 500.2500, L501.5200 ####[facility] [address] [place], [address] CO2 [Moles/Vol] 23.0 mmol/L Normal 21.0-32.0 [facility] Comment on above: Performed By: #### L 500.2500, L501.5200 ####[facility] [address] [place], [address] Creatinine [Mass/Vol] 1.19 mg/dL High 0.55-1.02 [facility] Comment on above: Result Comment: The validity of the calculated GFR GFRAA in patients over70 years has not been determined. Clinical correlation isessential. Performed By: #### L 500.2500, L501.5200 ####[facility] [address] [place], [address] ECRCL 39.44 ml/min Normal [facility] Comment on above: Performed By: #### L 500.2500, L501.5200 ####[facility] [address] [place], [address] EST GFR - AA 58 mL/min Low >60 [facility] Comment on above: Result Comment: Afri can [place] GFR Calc Performed By: #### L 500.2500, L501.5200 ####[facility] [address] [place], [address] GAP 10 Normal 5-15 [facility] Comment on above: Performed By: #### L 500.2500, L501.5200 ####[facility] [address] [place], [address] GFR/1.73 sq M.predicted among non-blacks MDRD (S/P/Bld) [Vol rate/Area] 48 mL/min/{1.73_m2} Low >60 [facility] Comment on above: Result Comment: Non- GFR Calc Performed By: #### L 500.2500, L501.5200 ####[facility] [address] [place], [address] Glucose [Mass/Vol] 145 mg/dL High 74-106 [facility] Comment on above: Result Comment: Fast ing Glucose result greater than or equal to 126 mg/dLsuggests DIABETES MELLITUS per A.D.A. criteria. Performed By: #### L 500.2500, L501.5200 ####[facility] [address] [place], [address] Potassium [Moles/Vol] 4.6 mmol/L Normal 3.5-5.1 [facility] Comment on above: Performed By: #### L 500.2500, L501.5200 ####[facility] [address] [place], [address] Sodium [Moles/Vol] 136 mmol/L Normal 136-145 [facility] Comment on above: Performed By: #### L 500.2500, L501.5200 ####[facility] [address] [place], [address] Urea nitrogen [Mass/Vol] 16 mg/dL Normal 7-18 [facility] Comment on above: Performed By: #### L 500.2500, L501.5200 ####[facility] [address] [place], [address] Bedside Glucoseon 06-18-2024 FINGERSTICK GLU 200 mg/dL High 74-106 [facility] Comment on above: Result Comment: LOURDES GEMENT OF PATIENT CARE PER NURSING PROTOCOL Performed By: #### L 501.080 ####[facility] [address] [place], [address] FINGERSTICK GLU 168 mg/dL High 74-106 [facility] Comment on above: Result Comment: LOURDES GEMENT OF PATIENT CARE PER NURSING PROTOCOL Performed By: #### L 501.080 ####[facility] [address] [place], [address] FINGERSTICK GLU 210 mg/dL High 74-106 [facility] Comment on above: Result Comment: LOURDES GEMENT OF PATIENT CARE PER NURSING PROTOCOL Performed By: #### L 501.080 ####[facility] [address] [place], [address] Blood urea nitrogen (BUN)/cr eatinine ratioOrdered By: Devi Paredes on 06-18-2024 Blood urea nitrogen (BUN)/creatinine ratio 13.4 RATIO 10-20 [facility] Calcium [Mass/Vol]Ordered By : Devi Paredes on 06-18-2024 Serum or plasma calcium measurement (mass/volume) 9.4 mg/dL 8.5-10.1 [facility] Carbon dioxide measurementOr dered By: Devi Paredes on 06-18-2024 Carbon dioxide measurement 23.0 mmol/L 21.0-32.0 [facility] Chloride measurementOrdered By: eDvi Paredes on 06-18-2024 Chloride measurement 104 mmol/L 98-107 [facility] Creatinine [Mass/Vol]Ordered By: Devi Paredes on 06-18-2024 Serum or plasma creatinine measurement (mass/volume) 1.19 mg/dL High 0.55-1.02 [facility] Discharge Instructionon 05-[address] [facility] Estimated glomerular filtrat ion rate (GFR) AmericanOrdered By: Devi Paredes on 06-18-2024 Estimated glomerular filtration rate (GFR) 58 mL/min Low >60 [facility] Estimation of creatinine padma aranceOrdered By: Devi Paredes on 06-18-2024 Estimation of creatinine clearance 39.44 ml/min [facility] Glomerular filtration rate ( GFR) estimationOrdered By: Devi Paredes on 06-18-2024 Glomerular filtration rate (GFR) estimation 48 mL/min Low >60 [facility] Glucose measurementOrdered B y: Devi Paredes on 06-18-2024 Glucose measurement 145 mg/dL [facility] 74-106 [facility] Glucose measurement at bedsi deOrdered By: Devi Paredes on 06-18-2024 Glucose measurement at bedside 200 mg/dL [facility] 74-106 [facility] HH, Hemoglobin AND Hematocri ton 06-18-2024 Hematocrit (Bld) [Volume fraction] 27.3 % Low 37-47 [facility] Comment on above: Performed By: #### L 100.0600 ####[facility] [address] [place], [place], [id number] Hemoglobin (Bld) [Mass/Vol] 8.6 g/dL Low 12.0-15.0 [facility] Comment on above: Performed By: #### L 100.0600 ####[facility] [address] [place], [address] Hematocrit Auto (Bld) [Volum e fraction]Ordered By: Devi Paredes on 06-18-2024 Automated blood hematocrit (percentage) 27.3 % Low 37-47 [facility] Hemoglobin measurementOrdere d By: Devi Paredes on 06-18-2024 Hemoglobin measurement 8.6 g/dL Low 12.0-15.0 [facility] Magnesiumon 06-18-2024 Magnesium [Mass/Vol] 1.8 mg/dL Normal 1.6-2.6 [facility] Comment on above: Performed By: #### L 500.2500, L501.5200 ####[facility] [address] [place], [address] Magnesium measurementOrdered By: Devi Paredes on 06-18-2024 Magnesium measurement 1.8 mg/dL 1.6-2.6 [facility] Potassium measurementOrdered By: Devi Paredes on 06-18-2024 Potassium measurement 4.6 mmol/L 3.5-5.1 [facility] Serum anion gap measurementO rdered By: Devi Paredes on 06-18-2024 Serum anion gap measurement 10 5-15 [facility] Sodium levelOrdered By: Devi Paredes on 06-18-2024 Sodium level 136 mmol/L 136-145 [facility] Urea nitrogen [Mass/Vol]Orde red By: Devi Paredes on 06-18-2024 Serum or plasma urea nitrogen measurement (mass/volume) 16 mg/dL 7-18 [facility] Urine Cultureon 06-18-2024 URC Normal [facility] Comment on above: Performed By: #### M 100.2200 ####[facility] [address] [place], [address] ALP [Catalytic activity/Vol] Ordered By: Jailyn Rosalie on 06-17-2024 Serum or plasma alkaline phosphatase measurement 99 U/L 45-117 [facility] ALT [Catalytic activity/Vol] Ordered By: Jailyn White on 06-17-2024 Serum or plasma alanine aminotransferase (ALT) measurement 16 U/L 13-56 [facility] Absolute neutrophil countOrd ered By: Jailyn White on 06-17-2024 Absolute neutrophil count 5.6 X10^3/uL 2.0-7.7 [facility] Albumin [Mass/Vol]Ordered By : Jailyn White on 06-17-2024 Serum or plasma albumin measurement (mass/volume) 3.1 g/dL Low 3.2-5.0 [facility] Albumin to globulin ratioOrd ered By: Jailyn White on 06-17-2024 Albumin to globulin ratio 0.8 RATIO Low 0.9-2.4 [facility] Basophil percentageOrdered B y: Jailyn White on 06-17-2024 Basophil percentage 0.4 % 0-1 [facility] Bedside Glucoseon 06-17-2024 FINGERSTICK GLU 279 mg/dL High 74-106 [facility] Comment on above: Result Comment: LOURDES GEMENT OF PATIENT CARE PER NURSING PROTOCOL Performed By: #### L 501.080 ####[facility] [address] [place], [address] FINGERSTICK GLU 210 mg/dL High 74-106 [facility] Comment on above: Result Comment: LOURDES GEMENT OF PATIENT CARE PER NURSING PROTOCOL Performed By: #### L 501.080 ####[facility] [address] [place], [address] FINGERSTICK GLU 93 mg/dL Normal 74-106 [facility] Comment on above: Result Comment: LOURDES GEMENT OF PATIENT CARE PER NURSING PROTOCOL Performed By: #### L 501.080 ####[facility] [address] [place], [address] FINGERSTICK GLU 79 mg/dL Normal 74-106 [facility] Comment on above: Result Comment: LOURDES GEMENT OF PATIENT CARE PER NURSING PROTOCOL Performed By: #### L 501.080 ####[facility] [address] [place], [address] FINGERSTICK GLU 125 mg/dL High -106 [facility] Comment on above: Result Comment: LOURDES GEMENT OF PATIENT CARE PER NURSING PROTOCOL Performed By: #### L 501.080 ####[facility] [address] [place], [address] FINGERSTICK GLU 117 mg/dL High 74-106 [facility] Comment on above: Result Comment: LOURDES GEMENT OF PATIENT CARE PER NURSING PROTOCOL Performed By: #### L 501.080 ####[facility] [address] [place], [address] Bilirubin, totalOrdered By: Jailyn Wiggins on 06-17-2024 Bilirubin, total 0.30 mg/dL 0.20-1.00 [facility] CBC W/Diff, Automatedon - MCHC (RBC) [Mass/Vol] 30.0 g/dL Low 32-36 [facility] Comment on above: Performed By: #### L 100.0100, L500.4050 ####[facility] [address] [place], [address] Comprehensive Metabolic Prof ilon 06-17-2024 Albumin [Mass/Vol] 3.1 g/dL Low 3.2-5.0 [facility] Comment on above: Performed By: #### L 100.0100, L500.4050 ####[facility] [address] [place], [address] Albumin/Globulin [Mass ratio] 0.8 {ratio} Low 0.9-2.4 [facility] Comment on above: Performed By: #### L 100.0100, L500.4050 ####[facility] [address] [place], [address] ALK P 99 U/L Normal 45-117 [facility] Comment on above: Performed By: #### L 100.0100, L500.4050 ####[facility] [address] [place], [address] ALT [Catalytic activity/Vol] 16 U/L Normal 13-56 [facility] Comment on above: Performed By: #### L 100.0100, L500.4050 ####[facility] [address] [place], [address] AST [Catalytic activity/Vol] 13 U/L Low 15-37 [facility] Comment on above: Performed By: #### L 100.0100, L500.4050 ####[facility] [address] [place], [address] Bilirubin [Mass/Vol] 0.30 mg/dL Normal 0.20-1.00 [facility] Comment on above: Result Comment: For patients on eltrombopag therapy, use of Dimension Samaria TBIL is not recommended. Performed By: #### L 100.0100, L500.4050 ####[facility] [address] [place], [address] BUN/CRE 15.5 RATIO Normal 10-20 [facility] Comment on above: Performed By: #### L 100.0100, L500.4050 ####[facility] [address] [place], [address] CA,Total 8.1 mg/dL Low 8.5-10.1 [facility] Comment on above: Performed By: #### L 100.0100, L500.4050 ####[facility] [address] [place], [address] Chloride [Moles/Vol] 102 mmol/L Normal 98-107 [facility] Comment on above: Performed By: #### L 100.0100, L500.4050 ####[facility] [address] [place], [address] CO2 [Moles/Vol] 23.0 mmol/L Normal 21.0-32.0 [facility] Comment on above: Performed By: #### L 100.0100, L500.4050 ####[facility] [address] [place], [address] Creatinine [Mass/Vol] 1.42 mg/dL High 0.55-1.02 [facility] Comment on above: Result Comment: The validity of the calculated GFR GFRAA in patients over70 years has not been determined. Clinical correlation isessential. Performed By: #### L 100.0100, L500.4050 ####[facility] [address] [place], [address] ECRCL 32.87 ml/min Normal [facility] Comment on above: Performed By: #### L 100.0100, L500.4050 ####[facility] [address] [place], [address] EST GFR - AA 47 mL/min Low >60 [facility] Comment on above: Result Comment: Afri can [place] GFR Calc Performed By: #### L 100.0100, L500.4050 ####[facility] [address] [place], [address] GAP 9 Normal 5-15 [facility] Comment on above: Performed By: #### L 100.0100, L500.4050 ####[facility] [address] [place], [address] GFR/1.73 sq M.predicted among non-blacks MDRD (S/P/Bld) [Vol rate/Area] 39 mL/min/{1.73_m2} Low >60 [facility] Comment on above: Result Comment: Non- GFR Calc Performed By: #### L 100.0100, L500.4050 ####[facility] [address] [place], [address] Globulin (S) [Mass/Vol] 3.8 g/dL Normal 2.2-4.2 [facility] Comment on above: Performed By: #### L 100.0100, L500.4050 ####[facility] [address] [place], [address] Glucose [Mass/Vol] 132 mg/dL High 74-106 [facility] Comment on above: Result Comment: Fast ing Glucose result greater than or equal to 126 mg/dLsuggests DIABETES MELLITUS per A.D.A. criteria. Performed By: #### L 100.0100, L500.4050 ####[facility] [address] [place], [address] Potassium [Moles/Vol] 4.3 mmol/L Normal 3.5-5.1 [facility] Comment on above: Performed By: #### L 100.0100, L500.4050 ####[facility] [address] [place], [address] Sodium [Moles/Vol] 134 mmol/L Low 136-145 [facility] Comment on above: Performed By: #### L 100.0100, L500.4050 ####[facility] [address] [place], [address] T PROT 6.9 g/dL Normal 6.4-8.2 [facility] Comment on above: Performed By: #### L 100.0100, L500.4050 ####[facility] [address] [place], [address] Urea nitrogen [Mass/Vol] 22 mg/dL High 7-18 [facility] Comment on above: Performed By: #### L 100.0100, L500.4050 ####[facility] [address] [place], [address] Eosinophil percentageOrdered By: on 06-17-2024 Eosinophil percentage 3.0 % 0-5 [facility] Erythrocyte distribution wid th (RBC) [Ratio]Ordered By: on 06-17-2024 Erythrocyte distribution width ratio 17.5 % High 11.6-14.6 [facility] Erythrocyte distribution wid th standard deviationOrdered By: on 06-17-2024 Erythrocyte distribution width standard deviation 58.4 fl High 35.1-43.9 [facility] Immature granulocytes/100 WB C Auto (Bld)Ordered By: on 06-17-2024 Automated immature granulocyte percentage 0.500 % 0.0-0.9 [facility] Lymphocytes Auto (Unsp spec) [#/Vol]Ordered By: on 06-17-2024 Absolute lymphocyte count 1.57 X10^3/uL 0.83-4.51 [facility] Lymphocytes/100 WBC Auto (Un sp spec)Ordered By: on 06-17-2024 Automated lymphocyte count as percentage of total leukocytes 19.6 % 19-41 [facility] MCV (RBC) [Entitic vol]Order ed By: White on 06-17-2024 MCV (mean corpuscular volume) determination 92.3 fL 81-99 [facility] Mean corpuscular hemoglobin (MCH) determinationOrdered By: on 06-17-2024 Mean corpuscular hemoglobin (MCH) determination 27.7 pg 27.0-32.0 [facility] Mean corpuscular hemoglobin concentration (MCHC) determinationOrdered By: on 06-17-2024 Mean corpuscular hemoglobin concentration (MCHC) determination 30.0 g/dL Low 32-36 [facility] Mean platelet volume determi nationOrdered By: on 06-17-2024 Mean platelet volume determination 8.8 fl 6.2-12.0 [facility] Monocyte percentageOrdered B y: on 06-17-2024 Monocyte percentage 6.6 % 0-10 [facility] Neutrophil percentageOrdered By: on 06-17-2024 Neutrophil percentage 69.9 % 47-70 [facility] No Panel InformationOrdered By: on 06-17-2024 13 U/L Low 15-37 [facility] Nucleated red blood cell per centageOrdered By: on 06-17-2024 Nucleated red blood cell percentage 0 % 0-5 [facility] Platelet countOrdered By: Debby Wiggins on 06-17-2024 Platelet count 521 K/mm3 High 150-450 [facility] RBC Auto (Bld) [#/Vol]Ordere d By: on 06-17-2024 Automated blood erythrocyte count 3.11 M/mm3 Low 4.2-5.4 [facility] RESPIRATORY PANEL MOLECULARo n 06-17-2024 RP PANEL Normal [facility] Comment on above: Performed By: #### M 100.019, M100.638 ####[facility] [address] [place], [address] Serum globulin measurementOr dered By: Jailyn Rosalie on 06-17-2024 Serum globulin measurement 3.8 g/dL 2.2-4.2 [facility] Total proteinOrdered By: Aut umn White on 06-17-2024 Total protein 6.9 g/dL 6.4-8.2 [facility] White blood cell (WBC) count Ordered By: Jailyn Wiggins on 06-17-2024 White blood cell (WBC) count 8.0 K/mm3 4.4-11.0 [facility] 12 Lead EKGon 06-16-2024 12 Lead EKG Normal [facility] Bacteria LM.HPF (Urine sed) [#/Area]Ordered By: Safia Lares on 06-16-2024 Urine sediment bacteria count by microscopy (number/high power field) 1+ /hpf None Seen [facility] Basic Metabolic Profile (BMP )on 06-16-2024 BUN/CRE 14.4 RATIO Normal 10-20 [facility] Comment on above: Order Comment: 'TROP ' Serial specimen #1, #2 or #3: 1 Performed By: #### L 100.0100, L500.2500, L501.4020 ####[facility] [address] [place], [address] CA,Total 8.8 mg/dL Normal 8.5-10.1 [facility] Comment on above: Order Comment: 'TROP ' Serial specimen #1, #2 or #3: 1 Performed By: #### L 100.0100, L500.2500, L501.4020 ####[facility] [address] [place], [address] Chloride [Moles/Vol] 96 mmol/L Low 98-107 [facility] Comment on above: Order Comment: 'TROP ' Serial specimen #1, #2 or #3: 1 Performed By: #### L 100.0100, L500.2500, L501.4020 ####[facility] [address] [place], [address] CO2 [Moles/Vol] 27.0 mmol/L Normal 21.0-32.0 [facility] Comment on above: Order Comment: 'TROP ' Serial specimen #1, #2 or #3: 1 Performed By: #### L 100.0100, L500.2500, L501.4020 ####[facility] [address] [place], [address] Creatinine [Mass/Vol] 2.15 mg/dL High 0.55-1.02 [facility] Comment on above: Order Comment: 'TROP ' Serial specimen #1, #2 or #3: 1 Result Comment: The validity of the calculated GFR GFRAA in patients over70 years has not been determined. Clinical correlation isessential. Performed By: #### L 100.0100, L500.2500, L501.4020 ####[facility] [address] [place], [address] ECRCL 21.85 ml/min Normal [facility] Comment on above: Order Comment: 'TROP ' Serial specimen #1, #2 or #3: 1 Performed By: #### L 100.0100, L500.2500, L501.4020 ####[facility] [address] [place], [address] EST GFR - AA 29 mL/min Low >60 [facility] Comment on above: Order Comment: 'TROP ' Serial specimen #1, #2 or #3: 1 Result Comment: Afri can [place] GFR Calc Performed By: #### L 100.0100, L500.2500, L501.4020 ####[facility] [address] [place], [address] GAP 9 Normal 5-15 [facility] Comment on above: Order Comment: 'TROP ' Serial specimen #1, #2 or #3: 1 Performed By: #### L 100.0100, L500.2500, L501.4020 ####[facility] [address] [place], [address] GFR/1.73 sq M.predicted among non-blacks MDRD (S/P/Bld) [Vol rate/Area] 24 mL/min/{1.73_m2} Low >60 [facility] Comment on above: Order Comment: 'TROP ' Serial specimen #1, #2 or #3: 1 Result Comment: Non- GFR Calc Performed By: #### L 100.0100, L500.2500, L501.4020 ####[facility] [address] [place], [address] Glucose [Mass/Vol] 103 mg/dL Normal 74-106 [facility] Comment on above: Order Comment: 'TROP ' Serial specimen #1, #2 or #3: 1 Result Comment: Fast ing Glucose result from 100 to 125 mg/dLsuggests IMPAIRED HOMEOSTASIS per A.D.A. criteria. Performed By: #### L 100.0100, L500.2500, L501.4020 ####[facility] [address] [place], [address] Potassium [Moles/Vol] 4.4 mmol/L Normal 3.5-5.1 [facility] Comment on above: Order Comment: 'TROP ' Serial specimen #1, #2 or #3: 1 Performed By: #### L 100.0100, L500.2500, L501.4020 ####[facility] [address] [place], [address] Sodium [Moles/Vol] 132 mmol/L Low 136-145 [facility] Comment on above: Order Comment: 'TROP ' Serial specimen #1, #2 or #3: 1 Performed By: #### L 100.0100, L500.2500, L501.4020 ####[facility] [address] [place], [address] Urea nitrogen [Mass/Vol] 31 mg/dL High 7-18 [facility] Comment on above: Order Comment: 'TROP ' Serial specimen #1, #2 or #3: 1 Performed By: #### L 100.0100, L500.2500, L501.4020 ####[facility] [address] [place], [address] Bedside Glucoseon 06-16-2024 FINGERSTICK GLU 118 mg/dL High 74-106 [facility] Comment on above: Result Comment: LOURDES GORMAN OF PATIENT CARE PER NURSING PROTOCOL Performed By: #### L 501.080 ####[facility] [address] [place], [address] Bilirubin Test strip Ql (U)O rdered By: Safia Lares on 06-16-2024 Urine total bilirubin detection by test strip 1 mg/dL High Negative [facility] CBC W/Diff, Automatedon 05-23 Absolute Lymph 1.85 X10 3/uL Normal 0.83-4.51 [facility] Comment on above: Performed By: #### L 100.0100, L500.2500, L501.4020 ####[facility] [address] [place], [address] Absolute Neut 8.2 X10 3/uL High 2.0-7.7 [facility] Comment on above: Performed By: #### L 100.0100, L500.2500, L501.4020 ####[facility] [address] [place], [address] Basophils/100 WBC (Bld) 0.3 % Normal 0-1 [facility] Comment on above: Performed By: #### L 100.0100, L500.2500, L501.4020 ####[facility] [address] [place], [address] Eosinophils/100 WBC (Bld) 1.9 % Normal 0-5 [facility] Comment on above: Performed By: #### L 100.0100, L500.2500, L501.4020 ####[facility] [address] [place], [address] Erythrocyte distribution width (RBC) [Ratio] 17.9 % High 11.6-14.6 [facility] Comment on above: Performed By: #### L 100.0100, L500.2500, L501.4020 ####[facility] [address] [place], [address] Hematocrit (Bld) [Volume fraction] 28.1 % Low 37-47 [facility] Comment on above: Performed By: #### L 100.0100, L500.2500, L501.4020 ####[facility] [address] [place], [address] Hemoglobin (Bld) [Mass/Vol] 9.1 g/dL Low 12.0-15.0 [facility] Comment on above: Performed By: #### L 100.0100, L500.2500, L501.4020 ####[facility] [address] [place], [address] IG% 0.600 Normal 0.0-0.9 [facility] Comment on above: Result Comment: IG% - Immature Granulocytes (promyelocytes, myelocytes andmetamyelocytes) > 1% indicates that a LEFT SHIFT is Present. Performed By: #### L 100.0100, L500.2500, L501.4020 ####[facility] [address] [place], [address] Lymphocytes/100 WBC (Bld) 16.5 % Low 19-41 [facility] Comment on above: Performed By: #### L 100.0100, L500.2500, L501.4020 ####[facility] [address] [place], [address] MCH (RBC) [Entitic mass] 29.0 pg Normal 27.0-32.0 [facility] Comment on above: Performed By: #### L 100.0100, L500.2500, L501.4020 ####[facility] [address] [place], [address] MCHC (RBC) [Mass/Vol] 32.4 g/dL Normal 32-36 [facility] Comment on above: Performed By: #### L 100.0100, L500.2500, L501.4020 ####[facility] [address] [place], [address] MCV (RBC) [Entitic vol] 89.5 fL Normal 81-99 [facility] Comment on above: Performed By: #### L 100.0100, L500.2500, L501.4020 ####[facility] [address] [place], [address] Monocytes/100 WBC (Bld) 7.2 % Normal 0-10 [facility] Comment on above: Performed By: #### L 100.0100, L500.2500, L501.4020 ####[facility] [address] [place], [address] Neutrophils/100 WBC (Bld) 73.5 % High 47-70 [facility] Comment on above: Performed By: #### L 100.0100, L500.2500, L501.4020 ####[facility] [address] [place], [address] Nucleated RBC (Bld) [#/Vol] 0 10*3/uL Normal 0-5 [facility] Comment on above: Performed By: #### L 100.0100, L500.2500, L501.4020 ####[facility] [address] [place], [address] Platelet mean volume (Bld) [Entitic vol] 8.6 fL Normal 6.2-12.0 [facility] Comment on above: Performed By: #### L 100.0100, L500.2500, L501.4020 ####[facility] [address] [place], [address] Platelets (Bld) [#/Vol] 558 10*3/uL High 150-450 [facility] Comment on above: Performed By: #### L 100.0100, L500.2500, L501.4020 ####[facility] [address] [place], [address] RBC (Bld) [#/Vol] 3.14 10*6/uL Low 4.2-5.4 [facility] Comment on above: Performed By: #### L 100.0100, L500.2500, L501.4020 ####[facility] [address] [place], [address] RDW SD 58.3 fl High 35.1-43.9 [facility] Comment on above: Performed By: #### L 100.0100, L500.2500, L501.4020 ####[facility] [address] [place], [address] WBC (Bld) [#/Vol] 11.2 10*3/uL High 4.4-11.0 [facility] Comment on above: Performed By: #### L 100.0100, L500.2500, L501.4020 ####[facility] [address] [place], [address] Chest PA and Lateralon 06-16 Chest PA and Lateral Normal [facility] Clarity (U)Ordered By: Safia Lares on 06-16-2024 Urine clarity Cloudy Clear [facility] Color (U)Ordered By: Safia frias on 06-16-2024 Urine color determination Yellow Yellow [facility] Creatinine (U) [Mass/Vol]Ord ered By: Jailyn White on 06-16-2024 Urine creatinine measurement (mass/volume) 68.50 mg/dL NO RANGE EST. [facility] Creatinine, Urine (random)on 06-16-2024 UR CREAT 68.50 mg/dL Normal NO RANGE EST. [facility] Comment on above: Performed By: #### L 501.1200, L501.5500 ####[facility] [address] [place], [address] Emergency Department Summary on 06-16-2024 Emergency Department Summary Normal [facility] Epithelial cells.squamous LM Ql (Urine sed)Ordered By: Safia Lares on 06-16-2024 Squamous epithelial cells detection in urine sediment by light microscopy 5-10 SEEN /hpf 5-10 [facility] Fine Granular Casts LM.LPF ( Urine sed) [#/Area]Ordered By: Safia Lares on 06-16-2024 Urine sediment fine granular cast count by microscopy (number/low power field) 5-10 SEEN /lpf 0-5 [facility] H AND P Exam - Hospitaliston 06-16-2024 H&P Exam - Hospitalist Normal [facility] L501.4020on 06-16-2024 TROPONIN-I HS 12 pg/mL Normal 3.0-54.0 [facility] Comment on above: Order Comment: 'TROP ' Serial specimen #1, #2 or #3: 1 Result Comment: Adam richardson Note: New Test Units and Gender Specific Reference Ranges. For more information see Policy Stat Procedure Samaria High Sensitivity Troponin (TNIH) and attachments. Performed By: #### L 100.0100, L500.2500, L501.4020 ####[facility] [address] [place], [place], [id number] Leukocyte esterase Test stri p Ql (U)Ordered By: Safia Lares on 06-16-2024 Urine leukocyte esterase detection by dipstick 500 /ul High Negative [facility] M100.019on 06-16-2024 M100.019 Negative Normal [facility] Comment on above: Performed By: #### M 100.019, M100.638 ####[facility] [address] [place], [address] Magnesiumon 06-16-2024 Magnesium [Mass/Vol] 1.4 mg/dL Low 1.6-2.6 [facility] Comment on above: Order Comment: Comme nts: May add to ED labsComments: may add to ED labs Performed By: #### L 509.7000, L501.2300, L501.5200 ####[facility] [address] [place], [address] Microscopic analysis of urin e for red blood cells (RBC)Ordered By: Safia Lares on 06-16-2024 Microscopic analysis of urine for red blood cells (RBC) 0-5 SEEN /hpf 0-5 [facility] Mucus LM Ql (Urine sed)Order ed By: Safia Lares on 06-16-2024 Mucus detection in urine sediment by light microscopy 0 SEEN /hpf [facility] Phosphoruson 06-16-2024 Phosphate [Mass/Vol] 4.9 mg/dL Normal 2.5-4.9 [facility] Comment on above: Order Comment: Comme nts: May add to ED labsComments: may add to ED labs Performed By: #### L 509.7000, L501.2300, L501.5200 ####[facility] [address] [place], [place], [id number] Phosphorus measurementOrdere d By: Jailyn Wiggins on 06-16-2024 Phosphorus measurement 4.9 mg/dL 2.5-4.9 [facility] Procalcitoninon 06-16-2024 Procalcitonin 0.24 ng/mL High 0.00-0.09 [facility] Comment on above: Result Comment: [...] ng/mL are obtained. Performed By: #### L 509.7000, L501.2300, L501.5200 ####[facility] [address] [place], [address] Procalcitonin [Mass/Vol]Orde red By: Jailyn Wiggins on 06-16-2024 Serum procalcitonin measurement 0.24 ng/mL High 0.00-0.09 [facility] Protein Test strip Ql (U)Ord ered By: Safia Lares on 06-16-2024 Urine protein assay by test strip, semi-quantitative 30 mg/dl High Negative [facility] Sodium urOrdered By: Jailyn Rosalie on 06-16-2024 Sodium ur 48 mmol/L Not Establ. [facility] Specific gravity (U) [Rel de nsity]Ordered By: Safia Lares on 06-16-2024 Urine specific gravity measurement 1.005 1.002-1.03 0 [facility] Troponin IOrdered By: Safia samson on 06-16-2024 Troponin I 12 pg/mL 3.0-54.0 [facility] Urinalysis, Completeon 06-16 BACTERIA 1+ /hpf Normal None Seen [facility] Comment on above: Order Comment: CLEAN CATCH Performed By: #### L 400.0001 ####[facility] [address] [place], [address] CAST,FINE GRAN 5-10 SEEN Normal 0-5 [facility] Comment on above: Order Comment: CLEAN CATCH Performed By: #### L 400.0001 ####[facility] [address] [place], [address] EPI,SQUAMOUS 5-10 SEEN Normal 5-10 [facility] Comment on above: Order Comment: CLEAN CATCH Performed By: #### L 400.0001 ####[facility] [address] [place], [address] RBC 0-5 SEEN Normal 0-5 [facility] Comment on above: Order Comment: CLEAN CATCH Performed By: #### L 400.0001 ####[facility] [address] [place], [place], [id number] WBC 10-25 SEEN Normal 0-5 [facility] Comment on above: Order Comment: CLEAN CATCH Performed By: #### L 400.0001 ####[facility] [address] [place], [address] Mucus Ql (Urine sed) 0 SEEN Normal [facility] Comment on above: Order Comment: CLEAN CATCH Performed By: #### L 400.0001 ####[facility] [address] [place], [place], [id number] Urine Sodiumon 06-16-2024 Sodium (U) [Moles/Vol] 48 mmol/L Normal Not Establ. [facility] Comment on above: Performed By: #### L 501.1200, L501.5500 ####[facility] [address] [place], [place], [id number] Urine blood detectionOrdered By: Safia Lares on 06-16-2024 Urine blood detection 10 /ul High Negative [facility] Urine cultureOrdered By: Suzanne Lares on 06-16-2024 Urine culture Staphylococcus epidermidis Abnormal [facility] Urine glucose detectionOrder ed By: Safia Lares on 06-16-2024 Urine glucose detection Normal mg/dl Normal [facility] Urine ketones detection by t est stripOrdered By: Safia Lares on 06-16-2024 Urine ketones detection by test strip Negative Negative [facility] Valproate levelOrdered By: Vanessa Lares on 06-16-2024 Valproate level 21 ug/mL Low 50-100 [facility] Valproic Acid (Depakene) Lev gerardo 06-16-2024 VALPROIC ACID 21 ug/mL Low 50-100 [facility] Comment on above: Performed By: #### L 501.8100 ####[facility] [address] [place], [place], [id number] White blood cell countOrdere d By: Safia Lares on 06-16-2024 White blood cell count 10-25 SEEN /hpf 0-5 [facility] pH (U)Ordered By: Safia beverly on 06-16-2024 Urine pH 7.0 5.0 - 8.0 [facility] Absolute neutrophil countOrd ered By: Harry Iniguez on 05-22-2024 Absolute neutrophil count 5.2 X10^3/uL 2.0-7.7 [facility] Basic Metabolic Profile (BMP )on 05-22-2024 BUN/CRE 10.8 RATIO Normal 10-20 [facility] Comment on above: Performed By: #### L 100.0100, L500.2500 ####[facility] [address] [place], [address] CA,Total 7.9 mg/dL Low 8.5-10.1 [facility] Comment on above: Performed By: #### L 100.0100, L500.2500 ####[facility] [address] [place], [address] Chloride [Moles/Vol] 110 mmol/L High 98-107 [facility] Comment on above: Performed By: #### L 100.0100, L500.2500 ####[facility] [address] [place], [address] CO2 [Moles/Vol] 21.0 mmol/L Normal 21.0-32.0 [facility] Comment on above: Performed By: #### L 100.0100, L500.2500 ####[facility] [address] [place], [address] Creatinine [Mass/Vol] 1.02 mg/dL Normal 0.55-1.02 [facility] Comment on above: Result Comment: The validity of the calculated GFR GFRAA in patients over70 years has not been determined. Clinical correlation isessential. Performed By: #### L 100.0100, L500.2500 ####[facility] [address] [place], [address] ECRCL 46.18 ml/min Normal [facility] Comment on above: Performed By: #### L 100.0100, L500.2500 ####[facility] [address] [place], [address] EST GFR - AA 69 mL/min Normal >60 [facility] Comment on above: Result Comment: Afri can [place] GFR Calc Performed By: #### L 100.0100, L500.2500 ####[facility] [address] [place], [address] GAP 7 Normal 5-15 [facility] Comment on above: Performed By: #### L 100.0100, L500.2500 ####[facility] [address] [place], [address] GFR/1.73 sq M.predicted among non-blacks MDRD (S/P/Bld) [Vol rate/Area] 57 mL/min/{1.73_m2} Low >60 [facility] Comment on above: Result Comment: Non- GFR Calc Performed By: #### L 100.0100, L500.2500 ####[facility] [address] [place], [address] Glucose [Mass/Vol] 138 mg/dL High 74-106 [facility] Comment on above: Result Comment: Fast ing Glucose result greater than or equal to 126 mg/dLsuggests DIABETES MELLITUS per A.D.A. criteria. Performed By: #### L 100.0100, L500.2500 ####[facility] [address] [place], [address] Potassium [Moles/Vol] 3.6 mmol/L Normal 3.5-5.1 [facility] Comment on above: Performed By: #### L 100.0100, L500.2500 ####[facility] [address] [place], [address] Sodium [Moles/Vol] 138 mmol/L Normal 136-145 [facility] Comment on above: Performed By: #### L 100.0100, L500.2500 ####[facility] [address] [place], [address] Urea nitrogen [Mass/Vol] 11 mg/dL Normal 7-18 [facility] Comment on above: Performed By: #### L 100.0100, L500.2500 ####[facility] [address] [place], [address] Basophil percentageOrdered B y: Harry Iniguez on 05-22-2024 Basophil percentage 0.5 % 0-1 [facility] Blood urea nitrogen (BUN)/cr eatinine ratioOrdered By: Harry Iniguez on 05-22-2024 Blood urea nitrogen (BUN)/creatinine ratio 10.8 RATIO 10-20 [facility] CBC W/Diff, Automatedon SMEAR COMMENT SCANNED Normal [facility] Comment on above: Performed By: #### L 100.0100, L500.2500 ####[facility] [address] [place], [address] Calcium [Mass/Vol]Ordered By : Harry Iniguez on 05-22-2024 Serum or plasma calcium measurement (mass/volume) 7.9 mg/dL Low 8.5-10.1 [facility] Carbon dioxide measurementOr dered By: Harry Iniguez on 05-22-2024 Carbon dioxide measurement 21.0 mmol/L 21.0-32.0 [facility] Chloride measurementOrdered By: Harry Iniguez on 05-22-2024 Chloride measurement 110 mmol/L High 98-107 [facility] Creatinine [Mass/Vol]Ordered By: Harry Iniguez on 05-22-2024 Serum or plasma creatinine measurement (mass/volume) 1.02 mg/dL 0.55-1.02 [facility] Discharge Instructionon Discharge Instruction Normal [facility] Eosinophil percentageOrdered By: Harry Iniguez on 05-22-2024 Eosinophil percentage 1.5 % 0-5 [facility] Erythrocyte distribution wid th (RBC) [Ratio]Ordered By: Harry Iniguez on 05-22-2024 Erythrocyte distribution width ratio 16.5 % High 11.6-14.6 [facility] Erythrocyte distribution wid th standard deviationOrdered By: Harry Iniguez on 05-22-2024 Erythrocyte distribution width standard deviation 54.5 fl High 35.1-43.9 [facility] Estimated glomerular filtrat ion rate (GFR) AmericanOrdered By: Harry Iniguez on 05-22-2024 Estimated glomerular filtration rate (GFR) 69 mL/min >60 [facility] Estimation of creatinine padma aranceOrdered By: Harry Iniguez on 05-22-2024 Estimation of creatinine clearance 46.18 ml/min [facility] Glomerular filtration rate ( GFR) estimationOrdered By: Harry Iniguez on 05-22-2024 Glomerular filtration rate (GFR) estimation 57 mL/min Low >60 [facility] Glucose measurementOrdered B y: Harry Iniguez on 05-22-2024 Glucose measurement 138 mg/dL High 74-106 [facility] Hematocrit Auto (Bld) [Volum e fraction]Ordered By: Harry Iniguez on 05-22-2024 Automated blood hematocrit (percentage) 23.6 % Low 37-47 [facility] Hemoglobin measurementOrdere d By: Harry Iniguez on 05-22-2024 Hemoglobin measurement 7.6 g/dL Low 12.0-15.0 [facility] Immature granulocytes/100 WB C Auto (Bld)Ordered By: Harry Iniguez on 05-22-2024 Automated immature granulocyte percentage 6.500 % High 0.0-0.9 [facility] Lymphocytes Auto (Unsp spec) [#/Vol]Ordered By: Harry Iniguez on 05-22-2024 Absolute lymphocyte count 2.08 X10^3/uL 0.83-4.51 [facility] Lymphocytes/100 WBC Auto (Un sp spec)Ordered By: Harry Iniguez on 05-22-2024 Automated lymphocyte count as percentage of total leukocytes 24.3 % 19-41 [facility] MCV (RBC) [Entitic vol]Order ed By: Harry Iniguez on 05-22-2024 MCV (mean corpuscular volume) determination 90.8 fL 81-99 [facility] Manual differential comment Dwayne (Bld) [Interp]Ordered By: Harry Iniguez on 05-22-2024 Blood manual differential comment interpretation (narrative result) SCANNED [facility] Mean corpuscular hemoglobin (MCH) determinationOrdered By: Harry Iniguez on 05-22-2024 Mean corpuscular hemoglobin (MCH) determination 29.2 pg 27.0-32.0 [facility] Mean corpuscular hemoglobin concentration (MCHC) determinationOrdered By: Harry Iniguez on 05-22-2024 Mean corpuscular hemoglobin concentration (MCHC) determination 32.2 g/dL 32-36 [facility] Mean platelet volume determi nationOrdered By: Harry Iniguez on 05-22-2024 Mean platelet volume determination 9.3 fl 6.2-12.0 [facility] Monocyte percentageOrdered B y: Harry Iniguez on 05-22-2024 Monocyte percentage 6.8 % 0-10 [facility] Neutrophil percentageOrdered By: Harry Iniguez on 05-22-2024 Neutrophil percentage 60.4 % 47-70 [facility] Nucleated red blood cell per centageOrdered By: Harry Iniguez on 05-22-2024 Nucleated red blood cell percentage 0.4 % 0-5 [facility] Platelet countOrdered By: Shoshana Iniguez on 05-22-2024 Platelet count 441 K/mm3 150-450 [facility] Potassium measurementOrdered By: Harry Iniguez on 05-22-2024 Potassium measurement 3.6 mmol/L 3.5-5.1 [facility] RBC Auto (Bld) [#/Vol]Ordere d By: Harry Iniguez on 05-22-2024 Automated blood erythrocyte count 2.60 M/mm3 Low 4.2-5.4 [facility] Serum anion gap measurementO rdered By: Harry Iniguez on 05-22-2024 Serum anion gap measurement 7 5-15 [facility] Sodium levelOrdered By: Beny Iniguez on 05-22-2024 Sodium level 138 mmol/L 136-145 [facility] Urea nitrogen [Mass/Vol]Orde red By: Harry Iniguez on 05-22-2024 Serum or plasma urea nitrogen measurement (mass/volume) 11 mg/dL 7-18 [facility] White blood cell (WBC) count Ordered By: Harry Iniguez on 05-22-2024 White blood cell (WBC) count 8.6 K/mm3 4.4-11.0 [facility] ALP [Catalytic activity/Vol] Ordered By: Jailyn Wiggins on 05-21-2024 Serum or plasma alkaline phosphatase measurement 98 U/L 45-117 [facility] ALT [Catalytic activity/Vol] Ordered By: Jailyn Wiggins on 05-21-2024 Serum or plasma alanine aminotransferase (ALT) measurement 19 U/L 13-56 [facility] Abdomen Single View (Portabl e)on 05-21-2024 Abdomen Single View (Portable) Normal [facility] Albumin [Mass/Vol]Ordered By : Jailyn Wiggins on 05-21-2024 Serum or plasma albumin measurement (mass/volume) 2.1 g/dL Low 3.2-5.0 [facility] Albumin to globulin ratioOrd ered By: Jailyn Wiggins on 05-21-2024 Albumin to globulin ratio 0.6 RATIO Low 0.9-2.4 [facility] Bilirubin, totalOrdered By: Jialyn Wiggins on 05-21-2024 Bilirubin, total 0.20 mg/dL 0.20-1.00 [facility] CBC W/Diff, Automatedon 04-23 Absolute Lymph 1.40 X10 3/uL Normal 0.83-4.51 [facility] Comment on above: Performed By: #### L 100.0100, L500.4050 ####[facility] [address] [place], [place], [address] Absolute Neut 4.4 X10 3/uL Normal 2.0-7.7 [facility] Comment on above: Performed By: #### L 100.0100, L500.4050 ####[facility] [address] [place], [address] Basophils/100 WBC (Bld) 0.9 % Normal 0-1 [facility] Comment on above: Performed By: #### L 100.0100, L500.4050 ####[facility] [address] [place], [address] Eosinophils/100 WBC (Bld) 2.1 % Normal 0-5 [facility] Comment on above: Performed By: #### L 100.0100, L500.4050 ####[facility] [address] [place], [address] Erythrocyte distribution width (RBC) [Ratio] 16.4 % High 11.6-14.6 [facility] Comment on above: Performed By: #### L 100.0100, L500.4050 ####[facility] [address] [place], [address] Hematocrit (Bld) [Volume fraction] 23.8 % Low 37-47 [facility] Comment on above: Performed By: #### L 100.0100, L500.4050 ####[facility] [address] [place], [address] Hemoglobin (Bld) [Mass/Vol] 7.5 g/dL Low 12.0-15.0 [facility] Comment on above: Performed By: #### L 100.0100, L500.4050 ####[facility] [address] [place], [address] IG% 4.800 High 0.0-0.9 [facility] Comment on above: Result Comment: IG% - Immature Granulocytes (promyelocytes, myelocytes andmetamyelocytes) > 1% indicates that a LEFT SHIFT is Present. Performed By: #### L 100.0100, L500.4050 ####[facility] [address] [place], [address] Lymphocytes/100 WBC (Bld) 20.8 % Normal 19-41 [facility] Comment on above: Performed By: #### L 100.0100, L500.4050 ####[facility] [address] [place], [address] MCH (RBC) [Entitic mass] 29.0 pg Normal 27.0-32.0 [facility] Comment on above: Performed By: #### L 100.0100, L500.4050 ####[facility] [address] [place], [address] MCHC (RBC) [Mass/Vol] 31.5 g/dL Low 32-36 [facility] Comment on above: Performed By: #### L 100.0100, L500.4050 ####[facility] [address] [place], [address] MCV (RBC) [Entitic vol] 91.9 fL Normal 81-99 [facility] Comment on above: Performed By: #### L 100.0100, L500.4050 ####[facility] [address] [place], [address] Monocytes/100 WBC (Bld) 6.1 % Normal 0-10 [facility] Comment on above: Performed By: #### L 100.0100, L500.4050 ####[facility] [address] [place], [address] Neutrophils/100 WBC (Bld) 65.3 % Normal 47-70 [facility] Comment on above: Performed By: #### L 100.0100, L500.4050 ####[facility] [address] [place], [address] Nucleated RBC (Bld) [#/Vol] 0 10*3/uL Normal 0-5 [facility] Comment on above: Performed By: #### L 100.0100, L500.4050 ####[facility] [address] [place], [address] Platelet mean volume (Bld) [Entitic vol] 9.1 fL Normal 6.2-12.0 [facility] Comment on above: Performed By: #### L 100.0100, L500.4050 ####[facility] [address] [place], [address] Platelets (Bld) [#/Vol] 376 10*3/uL Normal 150-450 [facility] Comment on above: Performed By: #### L 100.0100, L500.4050 ####[facility] [address] [place], [address] RBC (Bld) [#/Vol] 2.59 10*6/uL Low 4.2-5.4 [facility] Comment on above: Performed By: #### L 100.0100, L500.4050 ####[facility] [address] [place], [address] RDW SD 55.5 fl High 35.1-43.9 [facility] Comment on above: Performed By: #### L 100.0100, L500.4050 ####[facility] [address] [place], [address] WBC (Bld) [#/Vol] 6.7 10*3/uL Normal 4.4-11.0 [facility] Comment on above: Performed By: #### L 100.0100, L500.4050 ####[facility] [address] [place], [address] Comprehensive Metabolic Prof ilon 05-21-2024 Albumin [Mass/Vol] 2.1 g/dL Low 3.2-5.0 [facility] Comment on above: Performed By: #### L 100.0100, L500.4050 ####[facility] [address] [place], [address] Albumin/Globulin [Mass ratio] 0.6 {ratio} Low 0.9-2.4 [facility] Comment on above: Performed By: #### L 100.0100, L500.4050 ####[facility] [address] [place], [address] ALK P 98 U/L Normal 45-117 [facility] Comment on above: Performed By: #### L 100.0100, L500.4050 ####[facility] [address] [place], [address] ALT [Catalytic activity/Vol] 19 U/L Normal 13-56 [facility] Comment on above: Performed By: #### L 100.0100, L500.4050 ####[facility] [address] [place], [address] AST [Catalytic activity/Vol] 21 U/L Normal 15-37 [facility] Comment on above: Result Comment: Slig ht Hemolysis, Result may be falsely increased. Performed By: #### L 100.0100, L500.4050 ####[facility] [address] [place], [address] Bilirubin [Mass/Vol] 0.20 mg/dL Normal 0.20-1.00 [facility] Comment on above: Result Comment: For patients on eltrombopag therapy, use of Dimension Samaria TBIL is not recommended. Performed By: #### L 100.0100, L500.4050 ####[facility] [address] [place], [address] BUN/CRE 17.0 RATIO Normal 10-20 [facility] Comment on above: Performed By: #### L 100.0100, L500.4050 ####[facility] [address] [place], [address] CA,Total 8.1 mg/dL Low 8.5-10.1 [facility] Comment on above: Performed By: #### L 100.0100, L500.4050 ####[facility] [address] [place], [address] Chloride [Moles/Vol] 110 mmol/L High 98-107 [facility] Comment on above: Performed By: #### L 100.0100, L500.4050 ####[facility] [address] [place], [address] CO2 [Moles/Vol] 23.0 mmol/L Normal 21.0-32.0 [facility] Comment on above: Performed By: #### L 100.0100, L500.4050 ####[facility] [address] [place], [address] Creatinine [Mass/Vol] 1.00 mg/dL Normal 0.55-1.02 [facility] Comment on above: Result Comment: The validity of the calculated GFR GFRAA in patients over70 years has not been determined. Clinical correlation isessential. Performed By: #### L 100.0100, L500.4050 ####[facility] [address] [place], [address] ECRCL 47.11 ml/min Normal [facility] Comment on above: Performed By: #### L 100.0100, L500.4050 ####[facility] [address] [place], [address] EST GFR - AA 71 mL/min Normal >60 [facility] Comment on above: Result Comment: Afri can [place] GFR Calc Performed By: #### L 100.0100, L500.4050 ####[facility] [address] [place], [address] GAP 6 Normal 5-15 [facility] Comment on above: Performed By: #### L 100.0100, L500.4050 ####[facility] [address] [place], [address] GFR/1.73 sq M.predicted among non-blacks MDRD (S/P/Bld) [Vol rate/Area] 59 mL/min/{1.73_m2} Low >60 [facility] Comment on above: Result Comment: Non- GFR Calc Performed By: #### L 100.0100, L500.4050 ####[facility] [address] [place], [address] Globulin (S) [Mass/Vol] 3.7 g/dL Normal 2.2-4.2 [facility] Comment on above: Performed By: #### L 100.0100, L500.4050 ####[facility] [address] [place], [address] Glucose [Mass/Vol] 86 mg/dL Normal 74-106 [facility] Comment on above: Performed By: #### L 100.0100, L500.4050 ####[facility] [address] [place], [address] Potassium [Moles/Vol] 3.9 mmol/L Normal 3.5-5.1 [facility] Comment on above: Result Comment: Slig ht Hemolysis, Result may be falsely increased. Performed By: #### L 100.0100, L500.4050 ####[facility] [address] [place], [address] Sodium [Moles/Vol] 139 mmol/L Normal 136-145 [facility] Comment on above: Performed By: #### L 100.0100, L500.4050 ####[facility] [address] [place], [address] T PROT 5.8 g/dL Low 6.4-8.2 [facility] Comment on above: Performed By: #### L 100.0100, L500.4050 ####[facility] [address] [place], [address] Urea nitrogen [Mass/Vol] 17 mg/dL Normal 7-18 [facility] Comment on above: Performed By: #### L 100.0100, L500.4050 ####[facility] [address] [place], [address] Ferritinon 05-21-2024 Ferritin [Mass/Vol] 46 ng/mL Normal 8-252 [facility] Comment on above: Performed By: #### L 503.6030, L503.2150 ####[facility] [address] [place], [address] Ferritin measurementOrdered By: Harry Iniguez on 05-21-2024 Ferritin measurement 46 ng/mL 8- [facility] HH, Hemoglobin AND Hematocri ton 05-21-2024 Hematocrit (Bld) [Volume fraction] 29.2 % Low 37-47 [facility] Comment on above: Performed By: #### L 100.0600 ####[facility] [address] [place], [address] Hemoglobin (Bld) [Mass/Vol] 9.2 g/dL Low 12.0-15.0 [facility] Comment on above: Performed By: #### L 100.0600 ####[facility] [address] [place], [address] Iron (Unsp spec) [Mass/Mass] Ordered By: Harry Iniguez on 05-21-2024 Iron measurement (mass/mass) 25 ug/dL Low 50-170 [facility] Iron saturation [Mass fracti on]Ordered By: Harry Iniguez on 05-21-2024 Serum or plasma iron saturation measurement (mass fraction) 9.6 % Low 15.0-55.0 [facility] Iron+Iron Binding Capacityon 05-21-2024 Iron [Mass/Vol] 25 ug/dL Low 50-170 [facility] Comment on above: Performed By: #### L 503.6030, L503.6550 ####[facility] [address] [place], [place], [address] IRON SATURATION 9.6 Low 15.0-55.0 [facility] Comment on above: Performed By: #### L 503.6030, L503.6550 ####[facility] [address] [place], [address] TIBC 260 ug/dL Normal 250-450 [facility] Comment on above: Performed By: #### L 503.6030, L503.6550 ####[facility] [address] [place], [phone] No Panel InformationOrdered By: Jailyn Wiggins on 05-21-2024 21 U/L 15-37 [facility] Serum globulin measurementOr dered By: Jailyn Wiggins on 05-21-2024 Serum globulin measurement 3.7 g/dL 2.2-4.2 [facility] Stool Occult Blood iFOBon STOB Negative Normal [facility] Comment on above: Performed By: #### M 100.7900 ####[facility] [address] [place], [address] TIBCOrdered By: Harry jones on 05-21-2024 TIBC 260 ug/dL 250-450 [facility] Total proteinOrdered By: Gutierrez Wiggins on 05-21-2024 Total protein 5.8 g/dL Low 6.4-8.2 [facility] 12 Lead EKGon 05-20-2024 12 Lead EKG Normal [facility] Abdomen Single View (Portabl e)on 05-20-2024 Abdomen Single View (Portable) Normal [facility] CBC W/Diff, Automatedon 04-23 Absolute Lymph 1.81 X10 3/uL Normal 0.83-4.51 [facility] Comment on above: Performed By: #### L 100.0100, L500.4050, L501.5200 ####[facility] [address] [place], [address] Absolute Neut 6.5 X10 3/uL Normal 2.0-7.7 [facility] Comment on above: Performed By: #### L 100.0100, L500.4050, L501.5200 ####[facility] [address] [place], [address] Basophils/100 WBC (Bld) 0.7 % Normal 0-1 [facility] Comment on above: Performed By: #### L 100.0100, L500.4050, L501.5200 ####[facility] [address] [place], [address] Eosinophils/100 WBC (Bld) 2.1 % Normal 0-5 [facility] Comment on above: Performed By: #### L 100.0100, L500.4050, L501.5200 ####[facility] [address] [place], [address] Erythrocyte distribution width (RBC) [Ratio] 16.3 % High 11.6-14.6 [facility] Comment on above: Performed By: #### L 100.0100, L500.4050, L501.5200 ####[facility] [address] [place], [address] Hematocrit (Bld) [Volume fraction] 27.0 % Low 37-47 [facility] Comment on above: Performed By: #### L 100.0100, L500.4050, L501.5200 ####[facility] [address] [place], [address] Hemoglobin (Bld) [Mass/Vol] 8.7 g/dL Low 12.0-15.0 [facility] Comment on above: Performed By: #### L 100.0100, L500.4050, L501.5200 ####[facility] [address] [place], [address] IG% 4.200 High 0.0-0.9 [facility] Comment on above: Result Comment: IG% - Immature Granulocytes (promyelocytes, myelocytes andmetamyelocytes) > 1% indicates that a LEFT SHIFT is Present. Performed By: #### L 100.0100, L500.4050, L501.5200 ####[facility] [address] [place], [address] Lymphocytes/100 WBC (Bld) 18.5 % Low 19-41 [facility] Comment on above: Performed By: #### L 100.0100, L500.4050, L501.5200 ####[facility] [address] [place], [address] MCH (RBC) [Entitic mass] 28.7 pg Normal 27.0-32.0 [facility] Comment on above: Performed By: #### L 100.0100, L500.4050, L501.5200 ####[facility] [address] [place], [address] MCHC (RBC) [Mass/Vol] 32.2 g/dL Normal 32-36 [facility] Comment on above: Performed By: #### L 100.0100, L500.4050, L501.5200 ####[facility] [address] [place], [address] MCV (RBC) [Entitic vol] 89.1 fL Normal 81-99 [facility] Comment on above: Performed By: #### L 100.0100, L500.4050, L501.5200 ####[facility] [address] [place], [address] Monocytes/100 WBC (Bld) 7.8 % Normal 0-10 [facility] Comment on above: Performed By: #### L 100.0100, L500.4050, L501.5200 ####[facility] [address] [place], [address] Neutrophils/100 WBC (Bld) 66.7 % Normal 47-70 [facility] Comment on above: Performed By: #### L 100.0100, L500.4050, L501.5200 ####[facility] [address] [place], [address] Nucleated RBC (Bld) [#/Vol] 0 10*3/uL Normal 0-5 [facility] Comment on above: Performed By: #### L 100.0100, L500.4050, L501.5200 ####[facility] [address] [place], [address] Platelet mean volume (Bld) [Entitic vol] 9.2 fL Normal 6.2-12.0 [facility] Comment on above: Performed By: #### L 100.0100, L500.4050, L501.5200 ####[facility] [address] [place], [address] Platelets (Bld) [#/Vol] 503 10*3/uL High 150-450 [facility] Comment on above: Performed By: #### L 100.0100, L500.4050, L501.5200 ####[facility] [address] [place], [address] RBC (Bld) [#/Vol] 3.03 10*6/uL Low 4.2-5.4 [facility] Comment on above: Performed By: #### L 100.0100, L500.4050, L501.5200 ####[facility] [address] [place], [address] RDW SD 53.8 fl High 35.1-43.9 [facility] Comment on above: Performed By: #### L 100.0100, L500.4050, L501.5200 ####[facility] [address] [place], [address] WBC (Bld) [#/Vol] 9.8 10*3/uL Normal 4.4-11.0 [facility] Comment on above: Performed By: #### L 100.0100, L500.4050, L501.5200 ####[facility] [address] [place], [address] [facility] Albumin [Mass/Vol] 2.2 g/dL Low 3.2-5.0 [facility] Comment on above: Performed By: #### L 100.0100, L500.4050, L501.5200 ####[facility] [address] [place], [address] Albumin/Globulin [Mass ratio] 0.6 {ratio} Low 0.9-2.4 [facility] Comment on above: Performed By: #### L 100.0100, L500.4050, L501.5200 ####[facility] [address] [place], [address] ALK P 106 U/L Normal 45-117 [facility] Comment on above: Performed By: #### L 100.0100, L500.4050, L501.5200 ####[facility] [address] [place], [address] ALT [Catalytic activity/Vol] 21 U/L Normal 13-56 [facility] Comment on above: Performed By: #### L 100.0100, L500.4050, L501.5200 ####[facility] [address] [place], [address] AST [Catalytic activity/Vol] 14 U/L Low 15-37 [facility] Comment on above: Performed By: #### L 100.0100, L500.4050, L501.5200 ####[facility] [address] [place], [address] Bilirubin [Mass/Vol] 0.50 mg/dL Normal 0.20-1.00 [facility] Comment on above: Result Comment: For patients on eltrombopag therapy, use of Dimension Samaria TBIL is not recommended. Performed By: #### L 100.0100, L500.4050, L501.5200 ####[facility] [address] [place], [address] BUN/CRE 14.1 RATIO Normal 10-20 [facility] Comment on above: Performed By: #### L 100.0100, L500.4050, L501.5200 ####[facility] [address] [place], [address] CA,Total 8.7 mg/dL Normal 8.5-10.1 [facility] Comment on above: Performed By: #### L 100.0100, L500.4050, L501.5200 ####[facility] [address] [place], [address] Chloride [Moles/Vol] 97 mmol/L Low 98-107 [facility] Comment on above: Performed By: #### L 100.0100, L500.4050, L501.5200 ####[facility] [address] [place], [address] CO2 [Moles/Vol] 25.0 mmol/L Normal 21.0-32.0 [facility] Comment on above: Performed By: #### L 100.0100, L500.4050, L501.5200 ####[facility] [address] [place], [address] Creatinine [Mass/Vol] 1.84 mg/dL High 0.55-1.02 [facility] Comment on above: Result Comment: The validity of the calculated GFR GFRAA in patients over70 years has not been determined. Clinical correlation isessential. Performed By: #### L 100.0100, L500.4050, L501.5200 ####[facility] [address] [place], [address] ECRCL 25.71 ml/min Normal [facility] Comment on above: Performed By: #### L 100.0100, L500.4050, L501.5200 ####[facility] [address] [place], [address] EST GFR - AA 35 mL/min Low >60 [facility] Comment on above: Result Comment: Afri can Tuvaluan GFR Calc Performed By: #### L 100.0100, L500.4050, L501.5200 ####[facility] [address] [place], [address] GAP 9 Normal 5-15 [facility] Comment on above: Performed By: #### L 100.0100, L500.4050, L501.5200 ####[facility] [address] [place], [address] GFR/1.73 sq M.predicted among non-blacks MDRD (S/P/Bld) [Vol rate/Area] 29 mL/min/{1.73_m2} Low >60 [facility] Comment on above: Result Comment: Non- GFR Calc Performed By: #### L 100.0100, L500.4050, L501.5200 ####[facility] [address] [place], [address] Globulin (S) [Mass/Vol] 4.0 g/dL Normal 2.2-4.2 [facility] Comment on above: Performed By: #### L 100.0100, L500.4050, L501.5200 ####[facility] [address] [place], [address] Glucose [Mass/Vol] 122 mg/dL High 74-106 [facility] Comment on above: Result Comment: Fast ing Glucose result from 100 to 125 mg/dLsuggests IMPAIRED HOMEOSTASIS per A.D.A. criteria. Performed By: #### L 100.0100, L500.4050, L501.5200 ####[facility] [address] [place], [address] Potassium [Moles/Vol] 3.1 mmol/L Low 3.5-5.1 [facility] Comment on above: Performed By: #### L 100.0100, L500.4050, L501.5200 ####[facility] [address] [place], [address] Sodium [Moles/Vol] 131 mmol/L Low 136-145 [facility] Comment on above: Performed By: #### L 100.0100, L500.4050, L501.5200 ####[facility] [address] [place], [address] T PROT 6.2 g/dL Low 6.4-8.2 [facility] Comment on above: Performed By: #### L 100.0100, L500.4050, L501.5200 ####[facility] [address] [place], [address] Urea nitrogen [Mass/Vol] 26 mg/dL High 7-18 [facility] Comment on above: Performed By: #### L 100.0100, L500.4050, L501.5200 ####[facility] [address] [place], [address] Magnesiumon 05-20-2024 Magnesium [Mass/Vol] 1.9 mg/dL Normal 1.6-2.6 [facility] Comment on above: Performed By: #### L 100.0100, L500.4050, L501.5200 ####[facility] [address] [place], [address] Magnesium measurementOrdered By: Jailyn Wiggins on 05-20-2024 Magnesium measurement 1.9 mg/dL 1.6-2.6 [facility] [employer] 8623on OP Normal [facility] Comment on above: Performed By: #### M 600.5000 ####[facility] [address] [place], [address] Abdomen Single View (Portabl e)on 05-19-2024 Abdomen Single View (Portable) Normal [facility] CBC W/Diff, Automatedon 04-22 Absolute Lymph 1.59 X10 3/uL Normal 0.83-4.51 [facility] Comment on above: Performed By: #### L 100.0100, L500.4050 ####[facility] [address] [place], [address] Absolute Neut 8.0 X10 3/uL High 2.0-7.7 [facility] Comment on above: Performed By: #### L 100.0100, L500.4050 ####[facility] [address] [place], [address] Basophils/100 WBC (Bld) 0.6 % Normal 0-1 [facility] Comment on above: Performed By: #### L 100.0100, L500.4050 ####[facility] [address] [place], [address] Eosinophils/100 WBC (Bld) 1.4 % Normal 0-5 [facility] Comment on above: Performed By: #### L 100.0100, L500.4050 ####[facility] [address] [place], [address] Erythrocyte distribution width (RBC) [Ratio] 16.4 % High 11.6-14.6 [facility] Comment on above: Performed By: #### L 100.0100, L500.4050 ####[facility] [address] [place], [address] Hematocrit (Bld) [Volume fraction] 32.0 % Low 37-47 [facility] Comment on above: Performed By: #### L 100.0100, L500.4050 ####[facility] [address] [place], [address] Hemoglobin (Bld) [Mass/Vol] 10.3 g/dL Low 12.0-15.0 [facility] Comment on above: Performed By: #### L 100.0100, L500.4050 ####[facility] [address] [place], [address] IG% 2.000 High 0.0-0.9 [facility] Comment on above: Result Comment: IG% - Immature Granulocytes (promyelocytes, myelocytes andmetamyelocytes) > 1% indicates that a LEFT SHIFT is Present. Performed By: #### L 100.0100, L500.4050 ####[facility] [address] [place], [address] Lymphocytes/100 WBC (Bld) 14.5 % Low 19-41 [facility] Comment on above: Performed By: #### L 100.0100, L500.4050 ####[facility] [address] [place], [address] MCH (RBC) [Entitic mass] 28.9 pg Normal 27.0-32.0 [facility] Comment on above: Performed By: #### L 100.0100, L500.4050 ####[facility] [address] [place], [address] MCHC (RBC) [Mass/Vol] 32.2 g/dL Normal 32-36 [facility] Comment on above: Performed By: #### L 100.0100, L500.4050 ####[facility] [address] [place], [address] MCV (RBC) [Entitic vol] 89.9 fL Normal 81-99 [facility] Comment on above: Performed By: #### L 100.0100, L500.4050 ####[facility] [address] [place], [address] Monocytes/100 WBC (Bld) 8.9 % Normal 0-10 [facility] Comment on above: Performed By: #### L 100.0100, L500.4050 ####[facility] [address] [place], [address] Neutrophils/100 WBC (Bld) 72.6 % High 47-70 [facility] Comment on above: Performed By: #### L 100.0100, L500.4050 ####[facility] [address] [place], [address] Nucleated RBC (Bld) [#/Vol] 0.2 10*3/uL Normal 0-5 [facility] Comment on above: Performed By: #### L 100.0100, L500.4050 ####[facility] [address] [place], [address] Platelet mean volume (Bld) [Entitic vol] 9.0 fL Normal 6.2-12.0 [facility] Comment on above: Performed By: #### L 100.0100, L500.4050 ####[facility] [address] [place], [address] Platelets (Bld) [#/Vol] 543 10*3/uL High 150-450 [facility] Comment on above: Performed By: #### L 100.0100, L500.4050 ####[facility] [address] [place], [address] RBC (Bld) [#/Vol] 3.56 10*6/uL Low 4.2-5.4 [facility] Comment on above: Performed By: #### L 100.0100, L500.4050 ####[facility] [address] [place], [address] RDW SD 54.1 fl High 35.1-43.9 [facility] Comment on above: Performed By: #### L 100.0100, L500.4050 ####[facility] [address] [place], [address] WBC (Bld) [#/Vol] 11.0 10*3/uL Normal 4.4-11.0 [facility] Comment on above: Performed By: #### L 100.0100, L500.4050 ####[facility] [address] [place], [address] Comprehensive Metabolic Prof ilon 05-19-2024 Albumin [Mass/Vol] 2.4 g/dL Low 3.2-5.0 [facility] Comment on above: Performed By: #### L 100.0100, L500.4050 ####[facility] [address] [place], [address] Albumin/Globulin [Mass ratio] 0.5 {ratio} Low 0.9-2.4 [facility] Comment on above: Performed By: #### L 100.0100, L500.4050 ####[facility] [address] [place], [address] ALK P 125 U/L High 45-117 [facility] Comment on above: Performed By: #### L 100.0100, L500.4050 ####[facility] [address] [place], [address] ALT [Catalytic activity/Vol] 23 U/L Normal 13-56 [facility] Comment on above: Performed By: #### L 100.0100, L500.4050 ####[facility] [address] [place], [address] AST [Catalytic activity/Vol] 21 U/L Normal 15-37 [facility] Comment on above: Performed By: #### L 100.0100, L500.4050 ####[facility] [address] [place], [address] Bilirubin [Mass/Vol] 0.70 mg/dL Normal 0.20-1.00 [facility] Comment on above: Result Comment: For patients on eltrombopag therapy, use of Dimension Samaria TBIL is not recommended. Performed By: #### L 100.0100, L500.4050 ####[facility] [address] [place], [address] BUN/CRE 19.3 RATIO Normal 10-20 [facility] Comment on above: Performed By: #### L 100.0100, L500.4050 ####[facility] [address] [place], [address] CA,Total 9.3 mg/dL Normal 8.5-10.1 [facility] Comment on above: Performed By: #### L 100.0100, L500.4050 ####[facility] [address] [place], [address] Chloride [Moles/Vol] 95 mmol/L Low 98-107 [facility] Comment on above: Performed By: #### L 100.0100, L500.4050 ####[facility] [address] [place], [address] CO2 [Moles/Vol] 24.0 mmol/L Normal 21.0-32.0 [facility] Comment on above: Performed By: #### L 100.0100, L500.4050 ####[facility] [address] [place], [address] Creatinine [Mass/Vol] 1.09 mg/dL High 0.55-1.02 [facility] Comment on above: Result Comment: The validity of the calculated GFR GFRAA in patients over70 years has not been determined. Clinical correlation isessential. Performed By: #### L 100.0100, L500.4050 ####[facility] [address] [place], [address] ECRCL 43.00 ml/min Normal [facility] Comment on above: Performed By: #### L 100.0100, L500.4050 ####[facility] [address] [place], [address] EST GFR - AA 64 mL/min Normal >60 [facility] Comment on above: Result Comment: Afri can Tu[place] GFR Calc Performed By: #### L 100.0100, L500.4050 ####[facility] [address] [place], [address] GAP 11 Normal 5-15 [facility] Comment on above: Performed By: #### L 100.0100, L500.4050 ####[facility] [address] [place], [address] GFR/1.73 sq M.predicted among non-blacks MDRD (S/P/Bld) [Vol rate/Area] 53 mL/min/{1.73_m2} Low >60 [facility] Comment on above: Result Comment: Non- GFR Calc Performed By: #### L 100.0100, L500.4050 ####[facility] [address] [place], [address] Globulin (S) [Mass/Vol] 4.6 g/dL High 2.2-4.2 [facility] Comment on above: Performed By: #### L 100.0100, L500.4050 ####[facility] [address] [place], [address] Glucose [Mass/Vol] 236 mg/dL High 74-106 [facility] Comment on above: Result Comment: Gluc ose result greater than or equal to 200 mg/dLsuggests DIABETES MELLITUS per A.D.A. criteria. Performed By: #### L 100.0100, L500.4050 ####[facility] [address] [place], [address] Potassium [Moles/Vol] 3.2 mmol/L Low 3.5-5.1 [facility] Comment on above: Performed By: #### L 100.0100, L500.4050 ####[facility] [address] [place], [address] Sodium [Moles/Vol] 130 mmol/L Low 136-145 [facility] Comment on above: Performed By: #### L 100.0100, L500.4050 ####[facility] [address] [place], [address] T PROT 7.0 g/dL Normal 6.4-8.2 [facility] Comment on above: Performed By: #### L 100.0100, L500.4050 ####[facility] [address] [place], [address] Urea nitrogen [Mass/Vol] 21 mg/dL High 7-18 [facility] Comment on above: Performed By: #### L 100.0100, L500.4050 ####[facility] [address] [place], [address] L501.4020on 05-19-2024 TROPONIN-I HS 29 pg/mL Normal 3.0-54.0 [facility] Comment on above: Order Comment: Comme nts: SPECIMEN #3'TROP' Serial specimen #1, #2 or #3: 3 Result Comment: Plea se Note: New Test Units and Gender Specific Reference Ranges. For more information see Policy Stat Procedure Samaria High Sensitivity Troponin (TNIH) and attachments. Performed By: #### L 501.4020 ####[facility] [address] [place], [address] Magnesiumon 05-19-2024 Magnesium [Mass/Vol] 1.3 mg/dL Low 1.6-2.6 [facility] Comment on above: Order Comment: Comme nts: add onto to am labs Performed By: #### L 501.5200 ####[facility] [address] [place], [address] Troponin IOrdered By: Bassem Vann on 05-19-2024 Troponin I 29 pg/mL 3.0-54.0 [facility] 12 Lead EKGon 05-18-2024 12 Lead EKG Normal [facility] Abdomen Single View (Portabl e)on 05-18-2024 Abdomen Single View (Portable) Normal [facility] CBC W/Diff, Automatedon 04-22 Absolute Lymph 1.25 X10 3/uL Normal 0.83-4.51 [facility] Comment on above: Performed By: #### L 100.0100, L500.4050 ####[facility] [address] [place], [address] Absolute Neut 8.5 X10 3/uL High 2.0-7.7 [facility] Comment on above: Performed By: #### L 100.0100, L500.4050 ####[facility] [address] [place], [address] Basophils/100 WBC (Bld) 0.5 % Normal 0-1 [facility] Comment on above: Performed By: #### L 100.0100, L500.4050 ####[facility] [address] [place], [address] Eosinophils/100 WBC (Bld) 0.7 % Normal 0-5 [facility] Comment on above: Performed By: #### L 100.0100, L500.4050 ####[facility] [address] [place], [address] Erythrocyte distribution width (RBC) [Ratio] 16.8 % High 11.6-14.6 [facility] Comment on above: Performed By: #### L 100.0100, L500.4050 ####[facility] [address] [place], [address] Hematocrit (Bld) [Volume fraction] 31.3 % Low 37-47 [facility] Comment on above: Performed By: #### L 100.0100, L500.4050 ####[facility] [address] [place], [address] Hemoglobin (Bld) [Mass/Vol] 9.8 g/dL Low 12.0-15.0 [facility] Comment on above: Performed By: #### L 100.0100, L500.4050 ####[facility] [address] [place], [address] IG% 1.200 High 0.0-0.9 [facility] Comment on above: Result Comment: IG% - Immature Granulocytes (promyelocytes, myelocytes andmetamyelocytes) > 1% indicates that a LEFT SHIFT is Present. Performed By: #### L 100.0100, L500.4050 ####[facility] [address] [place], [address] Lymphocytes/100 WBC (Bld) 11.3 % Low 19-41 [facility] Comment on above: Performed By: #### L 100.0100, L500.4050 ####[facility] [address] [place], [address] MCH (RBC) [Entitic mass] 28.9 pg Normal 27.0-32.0 [facility] Comment on above: Performed By: #### L 100.0100, L500.4050 ####[facility] [address] [place], [address] MCHC (RBC) [Mass/Vol] 31.3 g/dL Low 32-36 [facility] Comment on above: Performed By: #### L 100.0100, L500.4050 ####[facility] [address] [place], [address] MCV (RBC) [Entitic vol] 92.3 fL Normal 81-99 [facility] Comment on above: Performed By: #### L 100.0100, L500.4050 ####[facility] [address] [place], [address] Monocytes/100 WBC (Bld) 9.7 % Normal 0-10 [facility] Comment on above: Performed By: #### L 100.0100, L500.4050 ####[facility] [address] [place], [address] Neutrophils/100 WBC (Bld) 76.6 % High 47-70 [facility] Comment on above: Performed By: #### L 100.0100, L500.4050 ####[facility] [address] [place], [address] Nucleated RBC (Bld) [#/Vol] 0 10*3/uL Normal 0-5 [facility] Comment on above: Performed By: #### L 100.0100, L500.4050 ####[facility] [address] [place], [address] Platelet mean volume (Bld) [Entitic vol] 9.1 fL Normal 6.2-12.0 [facility] Comment on above: Performed By: #### L 100.0100, L500.4050 ####[facility] [address] [place], [address] Platelets (Bld) [#/Vol] 534 10*3/uL High 150-450 [facility] Comment on above: Performed By: #### L 100.0100, L500.4050 ####[facility] [address] [place], [address] RBC (Bld) [#/Vol] 3.39 10*6/uL Low 4.2-5.4 [facility] Comment on above: Performed By: #### L 100.0100, L500.4050 ####[facility] [address] [place], [address] RDW SD 56.8 fl High 35.1-43.9 [facility] Comment on above: Performed By: #### L 100.0100, L500.4050 ####[facility] [address] [place], [address] WBC (Bld) [#/Vol] 11.1 10*3/uL High 4.4-11.0 [facility] Comment on above: Performed By: #### L 100.0100, L500.4050 ####[facility] [address] [place], [address] Comprehensive Metabolic Prof [facility] 05-18-2024 Albumin [Mass/Vol] 2.7 g/dL Low 3.2-5.0 [facility] Comment on above: Performed By: #### L 100.0100, L500.4050 ####[facility] [address] [place], [address] Albumin/Globulin [Mass ratio] 0.6 {ratio} Low 0.9-2.4 [facility] Comment on above: Performed By: #### L 100.0100, L500.4050 ####[facility] [address] [place], [address] ALK P 140 U/L High 45-117 [facility] Comment on above: Performed By: #### L 100.0100, L500.4050 ####[facility] [address] [place], [address] ALT [Catalytic activity/Vol] 23 U/L Normal 13-56 [facility] Comment on above: Performed By: #### L 100.0100, L500.4050 ####[facility] [address] [place], [address] AST [Catalytic activity/Vol] 15 U/L Normal 15-37 [facility] Comment on above: Performed By: #### L 100.0100, L500.4050 ####[facility] [address] [place], [address] Bilirubin [Mass/Vol] 0.40 mg/dL Normal 0.20-1.00 [facility] Comment on above: Result Comment: For patients on eltrombopag therapy, use of Dimension Samaria TBIL is not recommended. Performed By: #### L 100.0100, L500.4050 ####[facility] [address] [place], [address] BUN/CRE 21.8 RATIO High 10-20 [facility] Comment on above: Performed By: #### L 100.0100, L500.4050 ####[facility] [address] [place], [address] CA,Total 9.1 mg/dL Normal 8.5-10.1 [facility] Comment on above: Performed By: #### L 100.0100, L500.4050 ####[facility] [address] [place], [address] Chloride [Moles/Vol] 100 mmol/L Normal 98-107 [facility] Comment on above: Performed By: #### L 100.0100, L500.4050 ####[facility] [address] [place], [address] CO2 [Moles/Vol] 27.0 mmol/L Normal 21.0-32.0 [facility] Comment on above: Performed By: #### L 100.0100, L500.4050 ####[facility] [address] [place], [address] Creatinine [Mass/Vol] 0.87 mg/dL Normal 0.55-1.02 [facility] Comment on above: Result Comment: The validity of the calculated GFR GFRAA in patients over70 years has not been determined. Clinical correlation isessential. Performed By: #### L 100.0100, L500.4050 ####[facility] [address] [place], [address] ECRCL 52.44 ml/min Normal [facility] Comment on above: Performed By: #### L 100.0100, L500.4050 ####[facility] [address] [place], [address] EST GFR - AA 83 mL/min Normal >60 [facility] Comment on above: Result Comment: Afri can Tu[place] GFR Calc Performed By: #### L 100.0100, L500.4050 ####[facility] [address] [place], [address] GAP 7 Normal 5-15 [facility] Comment on above: Performed By: #### L 100.0100, L500.4050 ####[facility] [address] [place], [address] GFR/1.73 sq M.predicted among non-blacks MDRD (S/P/Bld) [Vol rate/Area] 69 mL/min/{1.73_m2} Normal >60 [facility] Comment on above: Result Comment: Non- GFR Calc Performed By: #### L 100.0100, L500.4050 ####[facility] [address] [place], [address] Globulin (S) [Mass/Vol] 4.7 g/dL High 2.2-4.2 [facility] Comment on above: Performed By: #### L 100.0100, L500.4050 ####[facility] [address] [place], [address] Glucose [Mass/Vol] 133 mg/dL High 74-106 [facility] Comment on above: Result Comment: Fast ing Glucose result greater than or equal to 126 mg/dLsuggests DIABETES MELLITUS per A.D.A. criteria. Performed By: #### L 100.0100, L500.4050 ####[facility] [address] [place], [address] Potassium [Moles/Vol] 3.5 mmol/L Normal 3.5-5.1 [facility] Comment on above: Performed By: #### L 100.0100, L500.4050 ####[facility] [address] [place], [address] Sodium [Moles/Vol] 135 mmol/L Low 136-145 [facility] Comment on above: Performed By: #### L 100.0100, L500.4050 ####[facility] [address] [place], [address] T PROT 7.4 g/dL Normal 6.4-8.2 [facility] Comment on above: Performed By: #### L 100.0100, L500.4050 ####[facility] [address] [place], [address] Urea nitrogen [Mass/Vol] 19 mg/dL High 7-18 [facility] Comment on above: Performed By: #### L 100.0100, L500.4050 ####[facility] [address] [place], [address] L501.4020on 05-18-2024 TROPONIN-I HS 20 pg/mL Normal 3.0-54.0 [facility] Comment on above: Order Comment: Comme nts: SPECIMEN #2'TROP' Serial specimen #1, #2 or #3: 2 Result Comment: Plea se Note: New Test Units and Gender Specific Reference Ranges. For more information see Policy Stat Procedure [place] High Sensitivity Troponin (TNIH) and attachments. Performed By: #### L 501.4020 ####[facility] [address] [place], [address] TROPONIN-I HS 23 pg/mL Normal 3.0-54.0 [facility] Comment on above: Order Comment: 'TROP ' Serial specimen #1, #2 or #3: 1 Result Comment: Plea se Note: New Test Units and Gender Specific Reference Ranges. For more information see Policy Stat Procedure [place] High Sensitivity Troponin (TNIH) and attachments. Performed By: #### L 501.4020 ####[facility] [address] [place], [address] CBC W/Diff, Automatedon 04-22 Absolute Lymph 1.00 X10 3/uL Normal 0.83-4.51 [facility] Comment on above: Order Comment: REDRA W. PREVIOUS SPECIMEN REJECTED DUE TOQNS. 05/17/24 0935 Sandy Flaco. Performed By: #### L 100.0100 ####[facility] [address] [place], [address] Absolute Neut 7.3 X10 3/uL Normal 2.0-7.7 [facility] Center Comment on above: Order Comment: REDRA W. PREVIOUS SPECIMEN REJECTED DUE TOQNS. 05/17/24 0935 Sandy Sam. Performed By: #### L 100.0100 ####[facility] [address] [place], [address] Basophils/100 WBC (Bld) 0.4 % Normal 0-1 [facility] Comment on above: Order Comment: REDRA W. PREVIOUS SPECIMEN REJECTED DUE TOQNS. 05/17/24 0935 Sandy Flaco. Performed By: #### L 100.0100 ####[facility] [address] [place], [address] Eosinophils/100 WBC (Bld) 0.9 % Normal 0-5 [facility] Comment on above: Order Comment: REDRA W. PREVIOUS SPECIMEN REJECTED DUE TOQNS. 05/17/24 0935 Sandy Sam. Performed By: #### L 100.0100 ####[facility] [address] [place], [address] Erythrocyte distribution width (RBC) [Ratio] 16.9 % High 11.6-14.6 [facility] Comment on above: Order Comment: REDRA W. PREVIOUS SPECIMEN REJECTED DUE TOQNS. 05/17/24 0935 Sandy Sam. Performed By: #### L 100.0100 ####[facility] [address] [place], [address] Hematocrit (Bld) [Volume fraction] 29.9 % Low 37-47 [facility] Comment on above: Order Comment: REDRA W. PREVIOUS SPECIMEN REJECTED DUE TOQNS. 05/17/24 0935 Sandy Sam. Performed By: #### L 100.0100 ####[facility] [address] [place], [address] Hemoglobin (Bld) [Mass/Vol] 9.6 g/dL Low 12.0-15.0 [facility] Comment on above: Order Comment: REDRA W. PREVIOUS SPECIMEN REJECTED DUE TOQNS. 05/17/24 0935 Sandytrell Sam. Performed By: #### L 100.0100 ####[facility] [address] [place], [address] IG% 1.300 High 0.0-0.9 [facility] Comment on above: Order Comment: REDRA W. PREVIOUS SPECIMEN REJECTED DUE TOQNS. 05/17/24 0935 Sandy Sam. Result Comment: IG% - Immature Granulocytes (promyelocytes, myelocytes andmetamyelocytes) > 1% indicates that a LEFT SHIFT is Present. Performed By: #### L 100.0100 ####[facility] [address] [place], [address] Lymphocytes/100 WBC (Bld) 10.5 % Low 19-41 [facility] Comment on above: Order Comment: REDRA W. PREVIOUS SPECIMEN REJECTED DUE TOQNS. 05/17/24 0935 Sandy Sam. Performed By: #### L 100.0100 ####[facility] [address] [place], [address] MCH (RBC) [Entitic mass] 29.3 pg Normal 27.0-32.0 [facility] Comment on above: Order Comment: REDRA W. PREVIOUS SPECIMEN REJECTED DUE TOQNS. 05/17/24 0935 Sandy Sam. Performed By: #### L 100.0100 ####[facility] [address] [place], [address] MCHC (RBC) [Mass/Vol] 32.1 g/dL Normal 32-36 [facility] Comment on above: Order Comment: REDRA W. PREVIOUS SPECIMEN REJECTED DUE TOQNS. 05/17/24 0935 Sandy Sam. Performed By: #### L 100.0100 ####[facility] [address] [place], [address] MCV (RBC) [Entitic vol] 91.2 fL Normal 81-99 [facility] Comment on above: Order Comment: REDRA W. PREVIOUS SPECIMEN REJECTED DUE TOQNS. 05/17/24 0935 Sandy Sam. Performed By: #### L 100.0100 ####[facility] [address] [place], [address] Monocytes/100 WBC (Bld) 10.7 % High 0-10 [facility] Comment on above: Order Comment: REDRA W. PREVIOUS SPECIMEN REJECTED DUE TOQNS. 05/17/24 0935 Sandy Sam. Performed By: #### L 100.0100 ####[facility] [address] [place], [address] Neutrophils/100 WBC (Bld) 76.2 % High 47-70 [facility] Comment on above: Order Comment: REDRA W. PREVIOUS SPECIMEN REJECTED DUE TOQNS. 05/17/24 0935 Sandy Sam. Performed By: #### L 100.0100 ####[facility] [address] [place], [address] Nucleated RBC (Bld) [#/Vol] 0.2 10*3/uL Normal 0-5 [facility] Comment on above: Order Comment: REDRA W. PREVIOUS SPECIMEN REJECTED DUE TOQNS. 05/17/24 0935 Sandy Sam. Performed By: #### L 100.0100 ####[facility] [address] [place], [address] Platelet mean volume (Bld) [Entitic vol] 9.1 fL Normal 6.2-12.0 [facility] Comment on above: Order Comment: REDRA W. PREVIOUS SPECIMEN REJECTED DUE TOQNS. 05/17/24 0935 Sandy Sam. Performed By: #### L 100.0100 ####[facility] [address] [place], [address] Platelets (Bld) [#/Vol] 526 10*3/uL High 150-450 [facility] Comment on above: Order Comment: REDRA W. PREVIOUS SPECIMEN REJECTED DUE TOQNS. 05/17/24 0935 Sandy Sam. Performed By: #### L 100.0100 ####[facility] [address] [place], [address] RBC (Bld) [#/Vol] 3.28 10*6/uL Low 4.2-5.4 [facility] Comment on above: Order Comment: REDRA W. PREVIOUS SPECIMEN REJECTED DUE TOQNS. 05/17/24 0935 Sandy Sam. Performed By: #### L 100.0100 ####[facility] [address] [place], [address] RDW SD 56.6 fl High 35.1-43.9 [facility] Comment on above: Order Comment: REDRA W. PREVIOUS SPECIMEN REJECTED DUE TOQNS. 05/17/2435 Sandy Sam. Performed By: #### L 100.0100 ####[facility] [address] [place], [address] WBC (Bld) [#/Vol] 9.5 10*3/uL Normal 4.4-11.0 [facility] Comment on above: Order Comment: REDRA W. PREVIOUS SPECIMEN REJECTED DUE TOQNS. 05/17/2435 Sandy Sam. Performed By: #### L 100.0100 ####[facility] [address] [place], [address] Absolute Neut Normal 2.0-7.7 [facility] Comment on above: Result Comment: This specimen has been REJECTED due to Laboratory criteria:Quanity Not Sufficient.RHESS has been notified of need of recollection.05/17/2434 Sandy Sam Performed By: #### L 100.0100, L500.4050 ####[facility] [address] [place], [address] HCT Normal 37-47 [facility] Comment on above: Result Comment: This specimen has been REJECTED due to Laboratory criteria:Quanity Not Sufficient.RHESS has been notified of need of recollection.05/17/24933 Sandy Sam Performed By: #### L 100.0100, L500.4050 ####[facility] [address] [place], [address] HGB Normal 12.0-15.0 [facility] Comment on above: Result Comment: This specimen has been REJECTED due to Laboratory criteria:Quanity Not Sufficient.RHESS has been notified of need of recollection.05/17/24933 Sandy Sam Performed By: #### L 100.0100, L500.4050 ####[facility] [address] [place], [address] MCH Normal 27.0-32.0 [facility] Comment on above: Result Comment: This specimen has been REJECTED due to Laboratory criteria:Quanity Not Sufficient.RHESS has been notified of need of recollection.05/17/24933 Sandy Sam Performed By: #### L 100.0100, L500.4050 ####[facility] [address] [place], [address] MCHC Normal 32-36 [facility] Comment on above: Result Comment: This specimen has been REJECTED due to Laboratory criteria:Quanity Not Sufficient.RHESS has been notified of need of recollection.05/17/24933 Sandy Sam Performed By: #### L 100.0100, L500.4050 ####[facility] [address] [place], [address] MCV Normal 81-99 [facility] Comment on above: Result Comment: This specimen has been REJECTED due to Laboratory criteria:Quanity Not Sufficient.RHESS has been notified of need of recollection.05/17/24933 Sandy Sam Performed By: #### L 100.0100, L500.4050 ####[facility] [address] [place], [address] NEUT% Normal 47-70 [facility] Comment on above: Result Comment: This specimen has been REJECTED due to Laboratory criteria:Quanity Not Sufficient.RHESS has been notified of need of recollection.05/17/24933 Sandy Sam Performed By: #### L 100.0100, L500.4050 ####[facility] [address] [place], [address] PLT Normal 150-450 [facility] Comment on above: Result Comment: This specimen has been REJECTED due to Laboratory criteria:Quanity Not Sufficient.RHESS has been notified of need of recollection.05/17/24933 Sandy Sam Performed By: #### L 100.0100, L500.4050 ####[facility] [address] [place], [address] RBC Normal 4.2-5.4 [facility] Comment on above: Result Comment: This specimen has been REJECTED due to Laboratory criteria:Quanity Not Sufficient.RHESS has been notified of need of recollection.05/17/24933 Sandy Sam Performed By: #### L 100.0100, L500.4050 ####[facility] [address] [place], [address] RDW CV Normal 11.6-14.6 [facility] Comment on above: Result Comment: This specimen has been REJECTED due to Laboratory criteria:Quanity Not Sufficient.RHESS has been notified of need of recollection.05/17/24933 Sandy Sam Performed By: #### L 100.0100, L500.4050 ####[facility] [address] [place], [address] RDW SD Normal 35.1-43.9 [facility] Comment on above: Result Comment: This specimen has been REJECTED due to Laboratory criteria:Quanity Not Sufficient.RHESS has been notified of need of recollection.05/17/24933 Sandy Sam Performed By: #### L 100.0100, L500.4050 ####[facility] [address] [place], [address] WBC Normal 4.4-11.0 [facility] Comment on above: Result Comment: This specimen has been REJECTED due to Laboratory criteria:Quanity Not Sufficient.RHESS has been notified of need of recollection.05/17/24933 Sandy Sam Performed By: #### L 100.0100, L500.4050 ####[facility] [address] [place], [address] Comprehensive Metabolic Prof ilon 05-17-2024 Albumin [Mass/Vol] 3.0 g/dL Low 3.2-5.0 [facility] Comment on above: Performed By: #### L 100.0100, L500.4050 ####[facility] [address] [place], [address] Albumin/Globulin [Mass ratio] 0.6 {ratio} Low 0.9-2.4 [facility] Comment on above: Performed By: #### L 100.0100, L500.4050 ####[facility] [address] [place], [address] ALK P 144 U/L High 45-117 [facility] Comment on above: Performed By: #### L 100.0100, L500.4050 ####[facility] [address] [place], [address] ALT [Catalytic activity/Vol] 27 U/L Normal 13-56 [facility] Comment on above: Performed By: #### L 100.0100, L500.4050 ####[facility] [address] [place], [address] AST [Catalytic activity/Vol] 20 U/L Normal 15-37 [facility] Comment on above: Performed By: #### L 100.0100, L500.4050 ####[facility] [address] [place], [address] Bilirubin [Mass/Vol] 0.50 mg/dL Normal 0.20-1.00 [facility] Comment on above: Result Comment: For patients on eltrombopag therapy, use of Dimension Samaria TBIL is not recommended. Performed By: #### L 100.0100, L500.4050 ####[facility] [address] [place], [address] BUN/CRE 24.6 RATIO High 10-20 [facility] Comment on above: Performed By: #### L 100.0100, L500.4050 ####[facility] [address] [place], [address] CA,Total 8.9 mg/dL Normal 8.5-10.1 [facility] Comment on above: Performed By: #### L 100.0100, L500.4050 ####[facility] [address] [place], [address] Chloride [Moles/Vol] 102 mmol/L Normal 98-107 [facility] Comment on above: Performed By: #### L 100.0100, L500.4050 ####[facility] [address] [place], [address] CO2 [Moles/Vol] 26.0 mmol/L Normal 21.0-32.0 [facility] Comment on above: Performed By: #### L 100.0100, L500.4050 ####[facility] [address] [place], [address] Creatinine [Mass/Vol] 0.97 mg/dL Normal 0.55-1.02 [facility] Comment on above: Result Comment: The validity of the calculated GFR GFRAA in patients over70 years has not been determined. Clinical correlation isessential. Performed By: #### L 100.0100, L500.4050 ####[facility] [address] [place], [address] ECRCL 47.92 ml/min Normal [facility] Comment on above: Performed By: #### L 100.0100, L500.4050 ####[facility] [address] [place], [address] EST GFR - AA 73 mL/min Normal >60 [facility] Comment on above: Result Comment: Afri can [place] GFR Calc Performed By: #### L 100.0100, L500.4050 ####[facility] [address] [place], [address] GAP 8 Normal 5-15 [facility] Comment on above: Performed By: #### L 100.0100, L500.4050 ####[facility] [address] [place], [address] GFR/1.73 sq M.predicted among non-blacks MDRD (S/P/Bld) [Vol rate/Area] 60 mL/min/{1.73_m2} Normal >60 [facility] Comment on above: Result Comment: Non- GFR Calc Performed By: #### L 100.0100, L500.4050 ####[facility] [address] [place], [address] Globulin (S) [Mass/Vol] 5.2 g/dL High 2.2-4.2 [facility] Comment on above: Performed By: #### L 100.0100, L500.4050 ####[facility] [address] [place], [address] Glucose [Mass/Vol] 135 mg/dL High 74-106 [facility] Comment on above: Result Comment: Fast ing Glucose result greater than or equal to 126 mg/dLsuggests DIABETES MELLITUS per A.D.A. criteria. Performed By: #### L 100.0100, L500.4050 ####[facility] [address] [place], [address] Potassium [Moles/Vol] 4.1 mmol/L Normal 3.5-5.1 [facility] Comment on above: Performed By: #### L 100.0100, L500.4050 ####[facility] [address] [place], [address] Sodium [Moles/Vol] 136 mmol/L Normal 136-145 [facility] Comment on above: Performed By: #### L 100.0100, L500.4050 ####[facility] [address] [place], [address] T PROT 8.2 g/dL Normal 6.4-8.2 [facility] Comment on above: Performed By: #### L 100.0100, L500.4050 ####[facility] [address] [place], [address] Urea nitrogen [Mass/Vol] 24 mg/dL High 7-18 [facility] Comment on above: Performed By: #### L 100.0100, L500.4050 ####[facility] [address] [place], [address] ENTERIC PATHOGEN PANEL STOOL on 05-17-2024 EP PANEL CAMPYLOBACTER Not Detected Norovirus Not Detected Rotavirus Not Detected Salmonella Not Detected Shiga Toxin Not Detected Shigella sp. Not Detected VIBRIO Not Detected Yersinia Not Detected Normal [facility] Comment on above: Performed By: #### M 100.637 ####[facility] [address] [place], [address] Stool Lactoferrin/WBCon 04-22 WBCST Normal Reference Ran ge = Negative Fecal WBC Lactoferrin A Positive: Fecal WBC Lactoferrin present A Normal [facility] Comment on above: Performed By: #### M 100.0605 ####[facility] [address] [place], [address] Abdomen Single View (Portabl e)on 05-16-2024 Abdomen Single View (Portable) Normal [facility] CBC W/Diff, Automatedon - Absolute Lymph 0.87 X10 3/uL Normal 0.83-4.51 [facility] Comment on above: Performed By: #### L 100.0100, L500.4050 ####[facility] [address] [place], [address] Absolute Neut 4.0 X10 3/uL Normal 2.0-7.7 [facility] Comment on above: Performed By: #### L 100.0100, L500.4050 ####[facility] [address] [place], [address] Basophils/100 WBC (Bld) 0.9 % Normal 0-1 [facility] Comment on above: Performed By: #### L 100.0100, L500.4050 ####[facility] [address] [place], [address] Eosinophils/100 WBC (Bld) 2.1 % Normal 0-5 [facility] Comment on above: Performed By: #### L 100.0100, L500.4050 ####[facility] [address] [place], [address] Erythrocyte distribution width (RBC) [Ratio] 16.9 % High 11.6-14.6 [facility] Comment on above: Performed By: #### L 100.0100, L500.4050 ####[facility] [address] [place], [address] Hematocrit (Bld) [Volume fraction] 30.3 % Low 37-47 [facility] Comment on above: Performed By: #### L 100.0100, L500.4050 ####[facility] [address] [place], [address] Hemoglobin (Bld) [Mass/Vol] 9.4 g/dL Low 12.0-15.0 [facility] Comment on above: Performed By: #### L 100.0100, L500.4050 ####[facility] [address] [place], [address] IG% 0.500 Normal 0.0-0.9 [facility] Comment on above: Result Comment: IG% - Immature Granulocytes (promyelocytes, myelocytes andmetamyelocytes) > 1% indicates that a LEFT SHIFT is Present. Performed By: #### L 100.0100, L500.4050 ####[facility] [address] [place], [address] Lymphocytes/100 WBC (Bld) 15.0 % Low 19-41 [facility] Comment on above: Performed By: #### L 100.0100, L500.4050 ####[facility] [address] [place], [address] MCH (RBC) [Entitic mass] 28.3 pg Normal 27.0-32.0 [facility] Comment on above: Performed By: #### L 100.0100, L500.4050 ####[facility] [address] [place], [address] MCHC (RBC) [Mass/Vol] 31.0 g/dL Low 32-36 [facility] Comment on above: Performed By: #### L 100.0100, L500.4050 ####[facility] [address] [place], [address] MCV (RBC) [Entitic vol] 91.3 fL Normal 81-99 [facility] Comment on above: Performed By: #### L 100.0100, L500.4050 ####[facility] [address] [place], [address] Monocytes/100 WBC (Bld) 12.1 % High 0-10 [facility] Comment on above: Performed By: #### L 100.0100, L500.4050 ####[facility] [address] [place], [address] Neutrophils/100 WBC (Bld) 69.4 % Normal 47-70 [facility] Comment on above: Performed By: #### L 100.0100, L500.4050 ####[facility] [address] [place], [address] Nucleated RBC (Bld) [#/Vol] 0 10*3/uL Normal 0-5 [facility] Comment on above: Performed By: #### L 100.0100, L500.4050 ####[facility] [address] [place], [address] Platelet mean volume (Bld) [Entitic vol] 9.3 fL Normal 6.2-12.0 [facility] Comment on above: Performed By: #### L 100.0100, L500.4050 ####[facility] [address] [place], [address] Platelets (Bld) [#/Vol] 475 10*3/uL High 150-450 [facility] Comment on above: Performed By: #### L 100.0100, L500.4050 ####[facility] [address] [place], [address] RBC (Bld) [#/Vol] 3.32 10*6/uL Low 4.2-5.4 [facility] Comment on above: Performed By: #### L 100.0100, L500.4050 ####[facility] [address] [place], [address] RDW SD 56.6 fl High 35.1-43.9 [facility] Comment on above: Performed By: #### L 100.0100, L500.4050 ####[facility] [address] [place], [address] WBC (Bld) [#/Vol] 5.8 10*3/uL Normal 4.4-11.0 [facility] Comment on above: Performed By: #### L 100.0100, L500.4050 ####[facility] [address] [place], [address] Comprehensive Metabolic Prof [facility] 05-16-2024 Albumin [Mass/Vol] 2.9 g/dL Low 3.2-5.0 [facility] Comment on above: Performed By: #### L 100.0100, L500.4050 ####[facility] [address] [place], [address] Albumin/Globulin [Mass ratio] 0.7 {ratio} Low 0.9-2.4 [facility] Comment on above: Performed By: #### L 100.0100, L500.4050 ####[facility] [address] [place], [address] ALK P 119 U/L High 45-117 [facility] Comment on above: Performed By: #### L 100.0100, L500.4050 ####[facility] [address] [place], [address] ALT [Catalytic activity/Vol] 25 U/L Normal 13-56 [facility] Comment on above: Performed By: #### L 100.0100, L500.4050 ####[facility] [address] [place], [address] AST [Catalytic activity/Vol] 18 U/L Normal 15-37 [facility] Comment on above: Performed By: #### L 100.0100, L500.4050 ####[facility] [address] [place], [address] Bilirubin [Mass/Vol] 0.50 mg/dL Normal 0.20-1.00 [facility] Comment on above: Result Comment: For patients on eltrombopag therapy, use of Dimension Samaria TBIL is not recommended. Performed By: #### L 100.0100, L500.4050 ####[facility] [address] [place], [address] BUN/CRE 31.0 RATIO High 10-20 [facility] Comment on above: Performed By: #### L 100.0100, L500.4050 ####[facility] [address] [place], [address] CA,Total 7.6 mg/dL Low 8.5-10.1 [facility] Comment on above: Performed By: #### L 100.0100, L500.4050 ####[facility] [address] [place], [address] Chloride [Moles/Vol] 104 mmol/L Normal 98-107 [facility] Comment on above: Performed By: #### L 100.0100, L500.4050 ####[facility] [address] [place], [address] CO2 [Moles/Vol] 24.0 mmol/L Normal 21.0-32.0 [facility] Comment on above: Performed By: #### L 100.0100, L500.4050 ####[facility] [address] [place], [address] Creatinine [Mass/Vol] 1.13 mg/dL High 0.55-1.02 [facility] Comment on above: Result Comment: The validity of the calculated GFR GFRAA in patients over70 years has not been determined. Clinical correlation isessential. Performed By: #### L 100.0100, L500.4050 ####[facility] [address] [place], [address] ECRCL 41.47 ml/min Normal [facility] Comment on above: Performed By: #### L 100.0100, L500.4050 ####[facility] [address] [place], [address] EST GFR - AA 62 mL/min Normal >60 [facility] Comment on above: Result Comment: Afri can [place] GFR Calc Performed By: #### L 100.0100, L500.4050 ####[facility] [address] [place], [address] GAP 6 Normal 5-15 [facility] Comment on above: Performed By: #### L 100.0100, L500.4050 ####[facility] [address] [place], [address] GFR/1.73 sq M.predicted among non-blacks MDRD (S/P/Bld) [Vol rate/Area] 51 mL/min/{1.73_m2} Low >60 [facility] Comment on above: Result Comment: Non- GFR Calc Performed By: #### L 100.0100, L500.4050 ####[facility] [address] [place], [address] Globulin (S) [Mass/Vol] 4.3 g/dL High 2.2-4.2 [facility] Comment on above: Performed By: #### L 100.0100, L500.4050 ####[facility] [address] [place], [address] Glucose [Mass/Vol] 134 mg/dL High 74-106 [facility] Comment on above: Result Comment: Fast ing Glucose result greater than or equal to 126 mg/dLsuggests DIABETES MELLITUS per A.D.A. criteria. Performed By: #### L 100.0100, L500.4050 ####[facility] [address] [place], [address] Potassium [Moles/Vol] 3.8 mmol/L Normal 3.5-5.1 [facility] Comment on above: Performed By: #### L 100.0100, L500.4050 ####[facility] [address] [place], [address] Sodium [Moles/Vol] 134 mmol/L Low 136-145 [facility] Comment on above: Performed By: #### L 100.0100, L500.4050 ####[facility] [address] [place], [address] T PROT 7.2 g/dL Normal 6.4-8.2 [facility] Comment on above: Performed By: #### L 100.0100, L500.4050 ####[facility] [address] [place], [address] Urea nitrogen [Mass/Vol] 35 mg/dL High 7-18 [facility] Comment on above: Performed By: #### L 100.0100, L500.4050 ####[facility] [address] [place], [address] Small Bowel Series Onlyon Small Bowel Series Only Normal [facility] Abdomen Single View (Portabl e)on 05-15-2024 Abdomen Single View (Portable) Normal [facility] Abdomen Single View (Portable) Normal [facility] CBC W/Diff, Automatedon 04-22 SMEAR COMMENT SCANNED Normal [facility] Comment on above: Result Comment: LEFT SHIFT: BANDS PRESENT 3+ Performed By: #### L 100.0100 ####[facility] [address] [place], [address] Comprehensive Metabolic Prof ilon 05-15-2024 Albumin [Mass/Vol] 2.9 g/dL Low 3.2-5.0 [facility] Comment on above: Performed By: #### L 500.4050, L501.2300, L501.5200 ####[facility] [address] [place], [address] Albumin/Globulin [Mass ratio] 0.7 {ratio} Low 0.9-2.4 [facility] Comment on above: Performed By: #### L 500.4050, L501.2300, L501.5200 ####[facility] [address] [place], [address] ALK P 117 U/L Normal 45-117 [facility] Comment on above: Performed By: #### L 500.4050, L501.2300, L501.5200 ####[facility] [address] [place], [address] ALT [Catalytic activity/Vol] 22 U/L Normal 13-56 [facility] Comment on above: Performed By: #### L 500.4050, L501.2300, L501.5200 ####[facility] [address] [place], [address] AST [Catalytic activity/Vol] 16 U/L Normal 15-37 [facility] Comment on above: Performed By: #### L 500.4050, L501.2300, L501.5200 ####[facility] [address] [place], [address] Bilirubin [Mass/Vol] 0.70 mg/dL Normal 0.20-1.00 [facility] Comment on above: Result Comment: For patients on eltrombopag therapy, use of Dimension Samaria TBIL is not recommended. Performed By: #### L 500.4050, L501.2300, L501.5200 ####[facility] [address] [place], [address] BUN/CRE 27.5 RATIO High 10-20 [facility] Comment on above: Performed By: #### L 500.4050, L501.2300, L501.5200 ####[facility] [address] [place], [address] CA,Total 7.0 mg/dL Low 8.5-10.1 [facility] Comment on above: Performed By: #### L 500.4050, L501.2300, L501.5200 ####[facility] [address] [place], [address] Chloride [Moles/Vol] 99 mmol/L Normal 98-107 [facility] Comment on above: Performed By: #### L 500.4050, L501.2300, L501.5200 ####[facility] [address] [place], [address] CO2 [Moles/Vol] 24.0 mmol/L Normal 21.0-32.0 [facility] Comment on above: Performed By: #### L 500.4050, L501.2300, L501.5200 ####[facility] [address] [place], [address] Creatinine [Mass/Vol] 1.93 mg/dL High 0.55-1.02 [facility] Comment on above: Result Comment: The validity of the calculated GFR GFRAA in patients over70 years has not been determined. Clinical correlation isessential. Performed By: #### L 500.4050, L501.2300, L501.5200 ####[facility] [address] [place], [address] ECRCL 24.35 ml/min Normal [facility] Comment on above: Performed By: #### L 500.4050, L501.2300, L501.5200 ####[facility] [address] [place], [address] EST GFR - AA 33 mL/min Low >60 [facility] Comment on above: Result Comment: Afri can Tuvaluan GFR Calc Performed By: #### L 500.4050, L501.2300, L501.5200 ####[facility] [address] [place], [address] GAP 9 Normal 5-15 [facility] Comment on above: Performed By: #### L 500.4050, L501.2300, L501.5200 ####[facility] [address] [place], [address] GFR/1.73 sq M.predicted among non-blacks MDRD (S/P/Bld) [Vol rate/Area] 28 mL/min/{1.73_m2} Low >60 [facility] Comment on above: Result Comment: Non- GFR Calc Performed By: #### L 500.4050, L501.2300, L501.5200 ####[facility] [address] [place], [address] Globulin (S) [Mass/Vol] 4.3 g/dL High 2.2-4.2 [facility] Comment on above: Performed By: #### L 500.4050, L501.2300, L501.5200 ####[facility] [address] [place], [address] Glucose [Mass/Vol] 168 mg/dL High 74-106 [facility] Comment on above: Result Comment: Fast ing Glucose result greater than or equal to 126 mg/dLsuggests DIABETES MELLITUS per A.D.A. criteria. Performed By: #### L 500.4050, L501.2300, L501.5200 ####[facility] [address] [place], [address] Potassium [Moles/Vol] 3.6 mmol/L Normal 3.5-5.1 [facility] Comment on above: Performed By: #### L 500.4050, L501.2300, L501.5200 ####[facility] [address] [place], [address] Sodium [Moles/Vol] 132 mmol/L Low 136-145 [facility] Comment on above: Performed By: #### L 500.4050, L501.2300, L501.5200 ####[facility] [address] [place], [address] T PROT 7.2 g/dL Normal 6.4-8.2 [facility] Comment on above: Performed By: #### L 500.4050, L501.2300, L501.5200 ####[facility] [address] [place], [address] Urea nitrogen [Mass/Vol] 53 mg/dL High 7-18 [facility] Comment on above: Performed By: #### L 500.4050, L501.2300, L501.5200 ####[facility] [address] [place], [address] Creatinine, Urine (random)on 05-15-2024 UR CREAT 170.00 mg/dL Normal NO RANGE EST. [facility] Comment on above: Performed By: #### L 501.1200 ####[facility] [address] [place], [address] Magnesiumon 05-15-2024 Magnesium [Mass/Vol] 2.2 mg/dL Normal 1.6-2.6 [facility] Comment on above: Performed By: #### L 500.4050, L501.2300, L501.5200 ####[facility] [address] [place], [address] Phosphoruson 05-15-2024 Phosphate [Mass/Vol] 3.1 mg/dL Normal 2.5-4.9 [facility] Comment on above: Performed By: #### L 500.4050, L501.2300, L501.5200 ####[facility] [address] [place], [address] Phosphorus measurementOrdere d By: Bassem Vann on 05-15-2024 Phosphorus measurement 3.1 mg/dL 2.5-4.9 [facility] 12 Lead EKGon 05-14-2024 12 Lead EKG Normal [facility] Abdomen Single View (Portabl e)on 05-14-2024 Abdomen Single View (Portable) Normal [facility] Basic Metabolic Profile (BMP )on 05-14-2024 BUN/CRE 26.6 RATIO High 10-20 [facility] Comment on above: Performed By: #### L 500.2500 ####[facility] [address] [place], [address] CA,Total 7.1 mg/dL Low 8.5-10.1 [facility] Comment on above: Performed By: #### L 500.2500 ####[facility] [address] [place], [address] Chloride [Moles/Vol] 100 mmol/L Normal 98-107 [facility] Comment on above: Performed By: #### L 500.2500 ####[facility] [address] [place], [address] CO2 [Moles/Vol] 24.0 mmol/L Normal 21.0-32.0 [facility] Comment on above: Performed By: #### L 500.2500 ####[facility] [address] [place], [address] Creatinine [Mass/Vol] 1.92 mg/dL High 0.55-1.02 [facility] Comment on above: Result Comment: The validity of the calculated GFR GFRAA in patients over70 years has not been determined. Clinical correlation isessential. Performed By: #### L 500.2500 ####[facility] [address] [place], [address] ECRCL 24.64 ml/min Normal [facility] Comment on above: Performed By: #### L 500.2500 ####[facility] [address] [place], [address] EST GFR - AA 33 mL/min Low >60 [facility] Comment on above: Result Comment: Afri can Tu[place] GFR Calc Performed By: #### L 500.2500 ####[facility] [address] [place], [address] GAP 9 Normal 5-15 [facility] Comment on above: Performed By: #### L 500.2500 ####[facility] [address] [place], [address] GFR/1.73 sq M.predicted among non-blacks MDRD (S/P/Bld) [Vol rate/Area] 28 mL/min/{1.73_m2} Low >60 [facility] Comment on above: Result Comment: Non- GFR Calc Performed By: #### L 500.2500 ####[facility] [address] [place], [address] Glucose [Mass/Vol] 190 mg/dL High 74-106 [facility] Comment on above: Result Comment: Fast ing Glucose result greater than or equal to 126 mg/dLsuggests DIABETES MELLITUS per A.D.A. criteria. Performed By: #### L 500.2500 ####[facility] [address] [place], [address] Potassium [Moles/Vol] 4.1 mmol/L Normal 3.5-5.1 [facility] Comment on above: Performed By: #### L 500.2500 ####[facility] [address] [place], [address] Sodium [Moles/Vol] 132 mmol/L Low 136-145 [facility] Comment on above: Performed By: #### L 500.2500 ####[facility] [address] [place], [address] Urea nitrogen [Mass/Vol] 51 mg/dL High 7-18 [facility] Comment on above: Performed By: #### L 500.2500 ####[facility] [address] [place], [address] BUN/CRE 23.0 RATIO High 10-20 [facility] Comment on above: Performed By: #### L 500.2500 ####[facility] [address] [place], [address] CA,Total 8.0 mg/dL Low 8.5-10.1 [facility] Comment on above: Performed By: #### L 500.2500 ####[facility] [address] [place], [address] Chloride [Moles/Vol] 95 mmol/L Low 98-107 [facility] Comment on above: Performed By: #### L 500.2500 ####[facility] [address] [place], [address] CO2 [Moles/Vol] 24.0 mmol/L Normal 21.0-32.0 [facility] Comment on above: Performed By: #### L 500.2500 ####[facility] [address] [place], [address] Creatinine [Mass/Vol] 2.09 mg/dL High 0.55-1.02 [facility] Comment on above: Result Comment: The validity of the calculated GFR GFRAA in patients over70 years has not been determined. Clinical correlation isessential. Performed By: #### L 500.2500 ####[facility] [address] [place], [address] ECRCL 22.67 ml/min Normal [facility] Comment on above: Performed By: #### L 500.2500 ####[facility] [address] [place], [address] EST GFR - AA 30 mL/min Low >60 [facility] Comment on above: Result Comment: Afri can Tu[place]uan GFR Calc Performed By: #### L 500.2500 ####[facility] [address] [place], [address] GAP 11 Normal 5-15 [facility] Comment on above: Performed By: #### L 500.2500 ####[facility] [address] [place], [address] GFR/1.73 sq M.predicted among non-blacks MDRD (S/P/Bld) [Vol rate/Area] 25 mL/min/{1.73_m2} Low >60 [facility] Comment on above: Result Comment: Non- GFR Calc Performed By: #### L 500.2500 ####[facility] [address] [place], [address] Glucose [Mass/Vol] 287 mg/dL High 74-106 [facility] Comment on above: Result Comment: Gluc ose result greater than or equal to 200 mg/dLsuggests DIABETES MELLITUS per A.D.A. criteria. Performed By: #### L 500.2500 ####[facility] [address] [place], [address] Potassium [Moles/Vol] 4.8 mmol/L Normal 3.5-5.1 [facility] Comment on above: Performed By: #### L 500.2500 ####[facility] [address] [place], [address] Sodium [Moles/Vol] 130 mmol/L Low 136-145 [facility] Comment on above: Performed By: #### L 500.2500 ####[facility] [address] [place], [address] Urea nitrogen [Mass/Vol] 48 mg/dL High 7-18 [facility] Comment on above: Performed By: #### L 500.2500 ####[facility] [address] [place], [address] Bedside Glucoseon 05-14-2024 FINGERSTICK GLU 277 mg/dL High 74-106 [facility] Comment on above: Result Comment: LOURDES GORMAN OF PATIENT CARE PER NURSING PROTOCOL Performed By: #### L 501.080 ####[facility] [address] [place], [address] CBC W/Diff, Automatedon - SMEAR COMMENT SCANNED Normal [facility] Comment on above: Performed By: #### L 100.0100, L500.4050, L501.2300, L501.5200, L501.9520, L501.9985 ####[facility] [address] [place], [address] Calcium ionizedOrdered By: Emelina Wiggins on 05-14-2024 Calcium ionized 1.00 mmol/L Low 1.09-1.30 [facility] Comprehensive Metabolic Prof ilon 05-14-2024 Albumin [Mass/Vol] 3.2 g/dL Normal 3.2-5.0 [facility] Comment on above: Performed By: #### L 100.0100, L500.4050, L501.2300, L501.5200, L501.9520, L501.9985 ####[facility] [address] [place], [address] Albumin/Globulin [Mass ratio] 0.7 {ratio} Low 0.9-2.4 [facility] Comment on above: Performed By: #### L 100.0100, L500.4050, L501.2300, L501.5200, L501.9520, L501.9985 ####[facility] [address] [place], [address] ALK P 122 U/L High 45-117 [facility] Comment on above: Performed By: #### L 100.0100, L500.4050, L501.2300, L501.5200, L501.9520, L501.9985 ####[facility] [address] [place], [address] ALT [Catalytic activity/Vol] 26 U/L Normal 13-56 [facility] Comment on above: Performed By: #### L 100.0100, L500.4050, L501.2300, L501.5200, L501.9520, L501.9985 ####[facility] [address] [place], [address] AST [Catalytic activity/Vol] 15 U/L Normal 15-37 [facility] Comment on above: Performed By: #### L 100.0100, L500.4050, L501.2300, L501.5200, L501.9520, L501.9985 ####[facility] [address] [place], [address] Bilirubin [Mass/Vol] 0.80 mg/dL Normal 0.20-1.00 [facility] Comment on above: Result Comment: For patients on eltrombopag therapy, use of Dimension Samaria TBIL is not recommended. Performed By: #### L 100.0100, L500.4050, L501.2300, L501.5200, L501.9520, L501.9985 ####[facility] [address] [place], [address] BUN/CRE 23.9 RATIO High 10-20 [facility] Comment on above: Performed By: #### L 100.0100, L500.4050, L501.2300, L501.5200, L501.9520, L501.9985 ####[facility] [address] [place], [address] CA,Total 7.5 mg/dL Low 8.5-10.1 [facility] Comment on above: Performed By: #### L 100.0100, L500.4050, L501.2300, L501.5200, L501.9520, L501.9985 ####[facility] [address] [place], [address] Chloride [Moles/Vol] 98 mmol/L Normal 98-107 [facility] Comment on above: Performed By: #### L 100.0100, L500.4050, L501.2300, L501.5200, L501.9520, L501.9985 ####[facility] [address] [place], [address] CO2 [Moles/Vol] 22.0 mmol/L Normal 21.0-32.0 [facility] Comment on above: Performed By: #### L 100.0100, L500.4050, L501.2300, L501.5200, L501.9520, L501.9985 ####[facility] [address] [place], [address] Creatinine [Mass/Vol] 2.05 mg/dL High 0.55-1.02 [facility] Comment on above: Result Comment: The validity of the calculated GFR GFRAA in patients over70 years has not been determined. Clinical correlation isessential. Performed By: #### L 100.0100, L500.4050, L501.2300, L501.5200, L501.9520, L501.9985 ####[facility] [address] [place], [address] ECRCL 23.08 ml/min Normal [facility] Comment on above: Performed By: #### L 100.0100, L500.4050, L501.2300, L501.5200, L501.9520, L501.9985 ####[facility] [address] [place], [address] EST GFR - AA 31 mL/min Low >60 [facility] Comment on above: Result Comment: Afri can Tuvaluan GFR Calc Performed By: #### L 100.0100, L500.4050, L501.2300, L501.5200, L501.9520, L501.9985 ####[facility] [address] [place], [address] GAP 9 Normal 5-15 [facility] Comment on above: Performed By: #### L 100.0100, L500.4050, L501.2300, L501.5200, L501.9520, L501.9985 ####[facility] [address] [place], [place], [id number](218) GFR/1.73 sq M.predicted among non-blacks MDRD (S/P/Bld) [Vol rate/Area] 26 mL/min/{1.73_m2} Low >60 [facility] Comment on above: Result Comment: Non- GFR Calc Performed By: #### L 100.0100, L500.4050, L501.2300, L501.5200, L501.9520, L501.9985 ####[facility] [address] [place], [address] Globulin (S) [Mass/Vol] 4.3 g/dL High 2.2-4.2 [facility] Comment on above: Performed By: #### L 100.0100, L500.4050, L501.2300, L501.5200, L501.9520, L501.9985 ####[facility] [address] [place], [address] Glucose [Mass/Vol] 210 mg/dL High 74-106 [facility] Comment on above: Result Comment: Gluc ose result greater than or equal to 200 mg/dLsuggests DIABETES MELLITUS per A.D.A. criteria. Performed By: #### L 100.0100, L500.4050, L501.2300, L501.5200, L501.9520, L501.9985 ####[facility] [address] [place], [address] Potassium [Moles/Vol] 4.2 mmol/L Normal 3.5-5.1 [facility] Comment on above: Performed By: #### L 100.0100, L500.4050, L501.2300, L501.5200, L501.9520, L501.9985 ####[facility] [address] [place], [address] Sodium [Moles/Vol] 129 mmol/L Low 136-145 [facility] Comment on above: Performed By: #### L 100.0100, L500.4050, L501.2300, L501.5200, L501.9520, L501.9985 ####[facility] [address] [place], [address] T PROT 7.5 g/dL Normal 6.4-8.2 [facility] Comment on above: Performed By: #### L 100.0100, L500.4050, L501.2300, L501.5200, L501.9520, L501.9985 ####[facility] [address] [place], [address] Urea nitrogen [Mass/Vol] 49 mg/dL High 7-18 [facility] Comment on above: Performed By: #### L 100.0100, L500.4050, L501.2300, L501.5200, L501.9520, L501.9985 ####[facility] [address] [place], [address] Consultation - Surgicalon Consultation - Surgical Normal [facility] Creatinine (U) [Mass/Vol]Ord ered By: Jailyn Wiggins on 05-14-2024 Urine creatinine measurement (mass/volume) 170.00 mg/dL NO RANGE EST. [facility] HbA1c (Bld) [Mass fraction]O rdered By: Bassem Vann on 05-14-2024 Hemoglobin A1c percentage 8.8 % High 3.8-5.6 [facility] Hemoglobin A1con 05-14-2024 HbA1c (Bld) [Mass fraction] 8.8 % High 3.8-5.6 [facility] Comment on above: Result Comment: Norm al < 5.7 % Prediabetic 5.7 - 6.4 % Diabetic >or= 6.5 % Please note range changes. Performed By: #### L 100.0100, L500.4050, L501.2300, L501.5200, L501.9520, L501.9985 ####[facility] [address] [place], [address] L501.2276on 05-14-2024 Ionized Calcium 1.00 mmol/L Low 1.09-1.30 [facility] Comment on above: Performed By: #### L 501.6176 ####[facility] [address] [place], [address] Magnesiumon 05-14-2024 Magnesium [Mass/Vol] 1.3 mg/dL Low 1.6-2.6 [facility] Comment on above: Performed By: #### L 100.0100, L500.4050, L501.2300, L501.5200, L501.9520, L501.9985 ####[facility] [address] [place], [address] Osmolality (U) [Osmolality]O rdered By: Bassem Vann on 05-14-2024 Osmolality ur 505 mOsm/KG >50 [facility] Osmolality, Serumon 05-14-20 24 OSMOLALITY,SER 301 mOsm/KG Normal 280-301 [facility] Comment on above: Performed By: #### L 501.7300 ####[facility] [address] [place], [address] Osmolality, Urineon 05-14-20 24 OSMOLALITY,UR 505 mOsm/KG Normal [facility] Comment on above: Result Comment: Norm al Urine Reference Ranges Random: 50 - 1200 mOsm/kg H20 depending on fluid intake Random: >850 mOsm/kg after 12 hour fluid restriction 24 hour: 300 - 900 mOsm/kg H2O Performed By: #### L 501.7400 ####[facility] [address] [place], [address] Osmolality, serumOrdered By: Bassem Vann on 05-14-2024 Osmolality, serum 301 mOsm/KG 280-301 [facility] Phosphoruson 05-14-2024 Phosphate [Mass/Vol] 3.2 mg/dL Normal 2.5-4.9 [facility] Comment on above: Performed By: #### L 100.0100, L500.4050, L501.2300, L501.5200, L501.9520, L501.9985 ####[facility] [address] [place], [address] Sodium urOrdered By: Jailyn Wiggins on 05-14-2024 Sodium ur < 5 mmol/L Not Establ. [facility] TSH QnOrdered By: Bassem santillan on 05-14-2024 Serum or plasma thyroid stimulating hormone (TSH) measurement (units/volume) 0.346 uIU/mL Low 0.358-3.74 0 [facility] Thyroid Stim Hormone (TSH)on 05-14-2024 TSH 0.346 uIU/mL Low 0.358-3.74 0 [facility] Comment on above: Performed By: #### L 100.0100, L500.4050, L501.2300, L501.5200, L501.9520, L501.9985 ####[facility] [address] [place], [address] Urine Sodiumon 05-14-2024 UR NA < 5 Normal Not Establ. [facility] Comment on above: Performed By: #### L 501.5500 ####[facility] [address] [place], [address] Abdomen/Pelvis without Conto n 05-13-2024 Abdomen/Pelvis without Cont Normal [facility] Bacteria LM.HPF (Urine sed) [#/Area]Ordered By: Tru Mayer on 05-13-2024 Urine sediment bacteria count by microscopy (number/high power field) 1+ /hpf None Seen [facility] Base excess Calc (BldV) [Mol es/Vol]Ordered By: Bassem Vann on 05-13-2024 Venous blood base excess measurement -4 mmol/L Low -1.0-3.5 [facility] CBC W/Diff, Automatedon 04-22 Absolute Lymph 0.80 X10 3/uL Low 0.83-4.51 [facility] Comment on above: Performed By: #### L 100.0100, L500.4050, L501.2450, L503.6005 ####[facility] [facility] [address] [place], [address] Absolute Neut 10.5 X10 3/uL High 2.0-7.7 [facility] Comment on above: Performed By: #### L 100.0100, L500.4050, L501.2450, L503.6005 ####[facility] [address] [place], [address] Basophils/100 WBC (Bld) 0.4 % Normal 0-1 [facility] Comment on above: Performed By: #### L 100.0100, L500.4050, L501.2450, L503.6005 ####[facility] [address] [place], [address] Eosinophils/100 WBC (Bld) 0.4 % Normal 0-5 [facility] Comment on above: Performed By: #### L 100.0100, L500.4050, L501.2450, L503.6005 ####[facility] [address] [place], [address] Erythrocyte distribution width (RBC) [Ratio] 16.8 % High 11.6-14.6 [facility] Comment on above: Performed By: #### L 100.0100, L500.4050, L501.2450, L503.6005 ####[facility] [address] [place], [address] Hematocrit (Bld) [Volume fraction] 38.7 % Normal 37-47 [facility] Comment on above: Performed By: #### L 100.0100, L500.4050, L501.2450, L503.6005 ####[facility] [address] [place], [address] Hemoglobin (Bld) [Mass/Vol] 12.3 g/dL Normal 12.0-15.0 [facility] Comment on above: Performed By: #### L 100.0100, L500.4050, L501.2450, L503.6005 ####[facility] [address] [place], [address] IG% 0.700 Normal 0.0-0.9 [facility] Comment on above: Result Comment: IG% - Immature Granulocytes (promyelocytes, myelocytes andmetamyelocytes) > 1% indicates that a LEFT SHIFT is Present. Performed By: #### L 100.0100, L500.4050, L501.2450, L503.6005 ####[facility] [address] [place], [address] Lymphocytes/100 WBC (Bld) 6.6 % Low 19-41 [facility] Comment on above: Performed By: #### L 100.0100, L500.4050, L501.2450, L503.6005 ####[facility] [address] [place], [address] MCH (RBC) [Entitic mass] 29.0 pg Normal 27.0-32.0 [facility] Comment on above: Performed By: #### L 100.0100, L500.4050, L501.2450, L503.6005 ####[facility] [address] [place], [address] MCHC (RBC) [Mass/Vol] 31.8 g/dL Low 32-36 [facility] Comment on above: Performed By: #### L 100.0100, L500.4050, L501.2450, L503.6005 ####[facility] [address] [place], [address] MCV (RBC) [Entitic vol] 91.3 fL Normal 81-99 [facility] Comment on above: Performed By: #### L 100.0100, L500.4050, L501.2450, L503.6005 ####[facility] [address] [place], [address] Monocytes/100 WBC (Bld) 5.4 % Normal 0-10 [facility] Comment on above: Performed By: #### L 100.0100, L500.4050, L501.2450, L503.6005 ####[facility] [address] [place], [address] Neutrophils/100 WBC (Bld) 86.5 % High 47-70 [facility] Comment on above: Performed By: #### L 100.0100, L500.4050, L501.2450, L503.6005 ####[facility] [address] [place], [address] Nucleated RBC (Bld) [#/Vol] 0 10*3/uL Normal 0-5 [facility] Comment on above: Performed By: #### L 100.0100, L500.4050, L501.2450, L503.6005 ####[facility] [address] [place], [address] Platelet mean volume (Bld) [Entitic vol] 9.5 fL Normal 6.2-12.0 [facility] Comment on above: Performed By: #### L 100.0100, L500.4050, L501.2450, L503.6005 ####[facility] [address] [place], [address] Platelets (Bld) [#/Vol] 650 10*3/uL High 150-450 [facility] Comment on above: Performed By: #### L 100.0100, L500.4050, L501.2450, L503.6005 ####[facility] [address] [place], [address] RBC (Bld) [#/Vol] 4.24 10*6/uL Normal 4.2-5.4 [facility] Comment on above: Performed By: #### L 100.0100, L500.4050, L501.2450, L503.6005 ####[facility] [address] [place], [address] RDW SD 55.6 fl High 35.1-43.9 [facility] Comment on above: Performed By: #### L 100.0100, L500.4050, L501.2450, L503.6005 ####[facility] [address] [place], [address] WBC (Bld) [#/Vol] 12.1 10*3/uL High 4.4-11.0 [facility] Comment on above: Performed By: #### L 100.0100, L500.4050, L501.2450, L503.6005 ####[facility] [address] [place], [address] CO2 (BldV) [Moles/Vol]Ordere d By: Bassem Vann on 05-13-2024 Venous blood total carbon dioxide measurement 23 mmol/L - [facility] CO2 (BldV) [Partial pressure ]Ordered By: Bassem Vann on 05-13-2024 Venous blood partial pressure of carbon dioxide measurement 41.4 mmHg 41-51 [facility] Clarity (U)Ordered By: Tru Mayer on 05-13-2024 Urine clarity Cloudy Clear [facility] Color (U)Ordered By: Tru Gore on 05-13-2024 Urine color determination Yellow Yellow [facility] Comprehensive Metabolic Prof ilon 05-13-2024 Albumin [Mass/Vol] 3.6 g/dL Normal 3.2-5.0 [facility] Comment on above: Performed By: #### L 100.0100, L500.4050, L501.2450, L503.6005 ####[facility] [address] [place], [address] Albumin/Globulin [Mass ratio] 0.7 {ratio} Low 0.9-2.4 [facility] Comment on above: Performed By: #### L 100.0100, L500.4050, L501.2450, L503.6005 ####[facility] [address] [place], [address] ALK P 146 U/L High 45-117 [facility] Comment on above: Performed By: #### L 100.0100, L500.4050, L501.2450, L503.6005 ####[facility] [address] [place], [address] ALT [Catalytic activity/Vol] 29 U/L Normal 13-56 [facility] Comment on above: Performed By: #### L 100.0100, L500.4050, L501.2450, L503.6005 ####[facility] [address] [place], [address] AST [Catalytic activity/Vol] 34 U/L Normal 15-37 [facility] Comment on above: Result Comment: Mode rate Hemolysis, Result may be falsely increased. Performed By: #### L 100.0100, L500.4050, L501.2450, L503.6005 ####[facility] [address] [place], [address] Bilirubin [Mass/Vol] 0.70 mg/dL Normal 0.20-1.00 [facility] Comment on above: Result Comment: For patients on eltrombopag therapy, use of Dimension Samaria TBIL is not recommended. Performed By: #### L 100.0100, L500.4050, L501.2450, L503.6005 ####[facility] [address] [place], [address] BUN/CRE 19.0 RATIO Normal 10-20 [facility] Comment on above: Performed By: #### L 100.0100, L500.4050, L501.2450, L503.6005 ####[facility] [address] [place], [address] CA,Total 8.6 mg/dL Normal 8.5-10.1 [facility] Comment on above: Performed By: #### L 100.0100, L500.4050, L501.2450, L503.6005 ####[facility] [address] [place], [address] Chloride [Moles/Vol] 94 mmol/L Low 98-107 [facility] Comment on above: Performed By: #### L 100.0100, L500.4050, L501.2450, L503.6005 ####[facility] [address] [place], [address] CO2 [Moles/Vol] 18.0 mmol/L Low 21.0-32.0 [facility] Comment on above: Performed By: #### L 100.0100, L500.4050, L501.2450, L503.6005 ####[facility] [address] [place], [address] Creatinine [Mass/Vol] 2.37 mg/dL High 0.55-1.02 [facility] Comment on above: Result Comment: The validity of the calculated GFR GFRAA in patients over70 years has not been determined. Clinical correlation isessential. Performed By: #### L 100.0100, L500.4050, L501.2450, L503.6005 ####[facility] [address] [place], [address] ECRCL 19.96 ml/min Normal [facility] Comment on above: Performed By: #### L 100.0100, L500.4050, L501.2450, L503.6005 ####[facility] [address] [place], [address] EST GFR - AA 26 mL/min Low >60 [facility] Comment on above: Result Comment: Afri can [place] GFR Calc Performed By: #### L 100.0100, L500.4050, L501.2450, L503.6005 ####[facility] [address] [place], [address] GAP 12 Normal 5-15 [facility] Comment on above: Performed By: #### L 100.0100, L500.4050, L501.2450, L503.6005 ####[facility] [address] [place], [address] GFR/1.73 sq M.predicted among non-blacks MDRD (S/P/Bld) [Vol rate/Area] 22 mL/min/{1.73_m2} Low >60 [facility] Comment on above: Result Comment: Non- GFR Calc Performed By: #### L 100.0100, L500.4050, L501.2450, L503.6005 ####[facility] [address] [place], [address] Globulin (S) [Mass/Vol] 5.0 g/dL High 2.2-4.2 [facility] Comment on above: Performed By: #### L 100.0100, L500.4050, L501.2450, L503.6005 ####[facility] [address] [place], [address] Glucose [Mass/Vol] 339 mg/dL High 74-106 [facility] Comment on above: Result Comment: Gluc ose result greater than or equal to 200 mg/dLsuggests DIABETES MELLITUS per A.D.A. criteria. Performed By: #### L 100.0100, L500.4050, L501.2450, L503.6005 ####[facility] [address] [place], [address] Potassium [Moles/Vol] 5.4 mmol/L High 3.5-5.1 [facility] Comment on above: Result Comment: Mode rate Hemolysis, Result may be falsely increased. Performed By: #### L 100.0100, L500.4050, L501.2450, L503.6005 ####[facility] [address] [place], [address] Sodium [Moles/Vol] 124 mmol/L Low 136-145 [facility] Comment on above: Performed By: #### L 100.0100, L500.4050, L501.2450, L503.6005 ####[facility] [address] [place], [address] T PROT 8.6 g/dL High 6.4-8.2 [facility] Comment on above: Performed By: #### L 100.0100, L500.4050, L501.2450, L503.6005 ####[facility] [address] [place], [address] Urea nitrogen [Mass/Vol] 45 mg/dL High 7-18 [facility] Comment on above: Performed By: #### L 100.0100, L500.4050, L501.2450, L503.6005 ####[facility] [address] [place], [address] Emergency Department Summary on 05-13-2024 Emergency Department Summary Normal [facility] Epithelial cells.squamous LM Ql (Urine sed)Ordered By: Tru Mayer on 05-13-2024 Squamous epithelial cells detection in urine sediment by light microscopy 5-10 SEEN /hpf 5-10 [facility] Glucose Ql (U)Ordered By: Refugio Mayer on 05-13-2024 Urine glucose detection 250 mg/dl High Normal [facility] Glucose measurement at bedsi deOrdered By: Bassem Vann on 05-13-2024 Glucose measurement at bedside 277 mg/dL High 74-106 [facility] H AND P Exam - Hospitaliston 05-13-2024 H&P Exam - Hospitalist Normal [facility] Hyaline casts LM.LPF (Urine sed) [#/Area]Ordered By: Tru Mayer on 12-23-2024 Urine sediment hyaline cast count by microscopy (number/low power field) 0-5 SEEN /lpf 0-5 [facility] Lactic Acidon 05-13-2024 Lactate [Moles/Vol] 1.7 mmol/L Normal 0.4-1.9 [facility] Comment on above: Performed By: #### L 503.6005 ####[facility] [address] [place], [place], [address] Lactate [Moles/Vol] 2.4 mmol/L Invalid Interpretation Code 0.4-1.9 [facility] Comment on above: Order Comment: Y Result Comment: Crit ical Result(s) Called at: 18:09:14 05/13/2024 by: GUERRERO. Results read back by Efrain Durham Performed By: #### L 100.0100, L500.4050, L501.2450, L503.6005 ####[facility] [address] [place], [address] Lactic acid measurementOrder ed By: Tru Mayer on 05-13-2024 Lactic acid measurement 1.7 mmol/L 0.4-2.0 [facility] Leukocyte esterase Test stri p Ql (U)Ordered By: Tru Mayer on 05-13-2024 Urine leukocyte esterase detection by dipstick 25 /ul High Negative [facility] Lipaseon 05-13-2024 Lipase [Catalytic activity/Vol] 16 U/L Normal 13-75 [facility] Comment on above: Result Comment: Adam richardson note:LIPASE revised reference range effective 22.New Lipase methodology. Expected to produce lower valuesthan the previous assay method.NEW Reference Range: 13 - 75 U/L Performed By: #### L 100.0100, L500.4050, L501.2450, L503.6005 ####[facility] [address] [place], [address] Lipase measurementOrdered By : Tru Mayer on 05-13-2024 Lipase measurement 16 U/L 13-75 [facility] Mucus LM Ql (Urine sed)Order ed By: Tru Mayer on 05-13-2024 Mucus detection in urine sediment by light microscopy 0 SEEN /hpf [facility] No Panel InformationOrdered By: Bassem Vann on 05-13-2024 FRIEDA [facility] Not entered [facility] Oxygen (BldV) [Partial press ure]Ordered By: Bassem Vann on 05-13-2024 Venous blood partial pressure of oxygen measurement 48 mmHg High 25-40 [facility] Protein Test strip Ql (U)Ord ered By: Tru Mayer on 05-13-2024 Urine protein assay by test strip, semi-quantitative 30 mg/dl High Negative [facility] Specific gravity (U) [Rel de nsity]Ordered By: Tru Mayer on 05-13-2024 Urine specific gravity measurement 1.020 1.002-1.03 0 [facility] Urinalysis, Completeon 05-13 BACTERIA 1+ /hpf Normal None Seen [facility] Comment on above: Order Comment: CLEAN CATCH Performed By: #### L 400.0001 ####[facility] [address] [place], [place], [id number] CAST,HYALINE 0-5 SEEN Normal 0-5 [facility] Comment on above: Order Comment: CLEAN CATCH Performed By: #### L 400.0001 ####[facility] [address] [place], [place], [id number] EPI,SQUAMOUS 5-10 SEEN Normal 5-10 [facility] Comment on above: Order Comment: CLEAN CATCH Performed By: #### L 400.0001 ####[facility] [address] [place], [place], [phone] 0-5 SEEN Normal 0-5 [facility] Comment on above: Order Comment: CLEAN CATCH Performed By: #### L 400.0001 ####[facility] [address] [place], [place], [phone] 0-5 SEEN Normal 0-5 [facility] Comment on above: Order Comment: CLEAN CATCH Performed By: #### L 400.0001 ####[facility] [address] [place], [place], [address] Mucus Ql (Urine sed) 0 SEEN Normal [facility] Comment on above: Order Comment: CLEAN CATCH Performed By: #### L 400.0001 ####[facility] [address] [place], [place], [address] Urine blood detectionOrdered By: Tru Mayer on 05-13-2024 Urine blood detection 10 /ul High Negative [facility] Urine total bilirubin detect ion by test stripOrdered By: Tru Mayer on 05-13-2024 Urine total bilirubin detection by test strip Negative Negative [facility] Urobilinogen Ql (U)Ordered B y: Tru Mayer on 05-13-2024 Urine urobilinogen measurement Normal mg/dl Normal [facility] Valproate levelOrdered By: Raghavendra Vann on 05-13-2024 Valproate level 11 ug/mL Low 50-100 [facility] Valproic Acid (Depakene) Lev gerardo 05-13-2024 VALPROIC ACID 11 ug/mL Low 50-100 [facility] Comment on above: Performed By: #### L 501.8100 ####[facility] [address] [place], [place], [id number] Venous Blood Gason 4 Blood Gas Type FRIEDA Normal [facility] Comment on above: Performed By: #### L 9000.0810 ####[facility] [address] [place], [address] CO2 [Moles/Vol] 23 mmol/L Normal 23-33 [facility] Comment on above: Performed By: #### L 9000.0810 ####[facility] [address] [place], [address] HCO3 (Bld) [Moles/Vol] 22 mmol/L Normal 22-26 [facility] Comment on above: Performed By: #### L 9000.0810 ####[facility] [address] [place], [address] O2 Delivery Dev Not entered Normal [facility] Comment on above: Performed By: #### L 9000.0810 ####[facility] [address] [place], [address] SITE Not entered Normal [facility] Comment on above: Performed By: #### L 9000.0810 ####[facility] [address] [place], [address] VBG BE -4 mmol/L Low -1.0-3.5 [facility] Comment on above: Performed By: #### L 9000.0810 ####[facility] [address] [place], [address] VBG pCO2 41.4 mmHg Normal 41-51 [facility] Comment on above: Performed By: #### L 9000.0810 ####[facility] [address] [place], [address] VBG pH 7.33 Normal 7.32-7.42 [facility] Comment on above: Performed By: #### L 9000.0810 ####[facility] [address] [place], [address] VBG PO2 48 mmHg High 25-40 [facility] Comment on above: Performed By: #### L 9000.0810 ####[facility] [address] [place], [address] VBG SO2 80 High 50-70 [facility] Comment on above: Performed By: #### L 9000.0810 ####[facility] [address] [place], [address] Venous blood bicarbonate joshua surementOrdered By: Bassem Vann on 05-13-2024 Venous blood bicarbonate measurement 22 mmol/L 22-26 [facility] Venous blood oxygen saturati on measurementOrdered By: Bassem Vann on 05-13-2024 Venous blood oxygen saturation measurement 80 % High 50-70 [facility] White blood cell countOrdere d By: Tru Mayer on 05-13-2024 White blood cell count 0-5 SEEN /hpf 0-5 [facility] pH (BldV)Ordered By: Bassem wyatt on 05-13-2024 Venous blood pH measurement 7.33 7.32-7.42 [facility] pH (U)Ordered By: Tru Dale on 05-13-2024 Urine pH 5.0 5.0 - 8.0 [facility] Carotid Duplex Ultrasoundon 04-22-2024 Carotid Duplex Ultrasound Normal [facility] Stress Reporton 04-22-2024 Stress Report Normal [facility] Internal Medicine Office Vis iton 03-25-2024 Internal Medicine Office Visit Normal [facility] Cardiology Visit Reporton Cardiology Visit Report Normal [facility] Comprehensive Metabolic Prof ilon 03-20-2024 Albumin [Mass/Vol] 3.4 g/dL Normal 3.2-5.0 [facility] Comment on above: Performed By: #### L 500.4050, L500.4100, L501.9520, L506.0400 ####[facility] [address] [place], [address] Albumin/Globulin [Mass ratio] 0.8 {ratio} Low 0.9-2.4 [facility] Comment on above: Performed By: #### L 500.4050, L500.4100, L501.9520, L506.0400 ####[facility] [address] [place], [address] ALK P 108 U/L Normal 45-117 [facility] Comment on above: Performed By: #### L 500.4050, L500.4100, L501.9520, L506.0400 ####[facility] [address] [place], [address] ALT [Catalytic activity/Vol] 22 U/L Normal 13-56 [facility] Comment on above: Performed By: #### L 500.4050, L500.4100, L501.9520, L506.0400 ####[facility] [address] [place], [address] AST [Catalytic activity/Vol] 19 U/L Normal 15-37 [facility] Comment on above: Performed By: #### L 500.4050, L500.4100, L501.9520, L506.0400 ####[facility] [address] [place], [address] Bilirubin [Mass/Vol] 0.50 mg/dL Normal 0.20-1.00 [facility] Comment on above: Result Comment: For patients on eltrombopag therapy, use of Dimension Samaria TBIL is not recommended. Performed By: #### L 500.4050, L500.4100, L501.9520, L506.0400 ####[facility] [address] [place], [address] BUN/CRE 14.3 RATIO Normal 10-20 [facility] Comment on above: Performed By: #### L 500.4050, L500.4100, L501.9520, L506.0400 ####[facility] [address] [place], [address] CA,Total 8.7 mg/dL Normal 8.5-10.1 [facility] Comment on above: Performed By: #### L 500.4050, L500.4100, L501.9520, L506.0400 ####[facility] [address] [place], [address] Chloride [Moles/Vol] 99 mmol/L Normal 98-107 [facility] Comment on above: Performed By: #### L 500.4050, L500.4100, L501.9520, L506.0400 ####[facility] [address] [place], [address] CO2 [Moles/Vol] 24.0 mmol/L Normal 21.0-32.0 [facility] Comment on above: Performed By: #### L 500.4050, L500.4100, L501.9520, L506.0400 ####[facility] [address] [place], [address] Creatinine [Mass/Vol] 1.12 mg/dL High 0.55-1.02 [facility] Comment on above: Result Comment: The validity of the calculated GFR GFRAA in patients over70 years has not been determined. Clinical correlation isessential. Performed By: #### L 500.4050, L500.4100, L501.9520, L506.0400 ####[facility] [address] [place], [address] EST GFR - AA 62 mL/min Normal >60 [facility] Comment on above: Result Comment: Afri can [place] GFR Calc Performed By: #### L 500.4050, L500.4100, L501.9520, L506.0400 ####[facility] [address] [place], [address] GAP 8 Normal 5-15 [facility] Comment on above: Performed By: #### L 500.4050, L500.4100, L501.9520, L506.0400 ####[facility] [address] [place], [address] GFR/1.73 sq M.predicted among non-blacks MDRD (S/P/Bld) [Vol rate/Area] 52 mL/min/{1.73_m2} Low >60 [facility] Comment on above: Result Comment: Non- GFR Calc Performed By: #### L 500.4050, L500.4100, L501.9520, L506.0400 ####[facility] [address] [place], [address] Globulin (S) [Mass/Vol] 4.1 g/dL Normal 2.2-4.2 [facility] Comment on above: Performed By: #### L 500.4050, L500.4100, L501.9520, L506.0400 ####[facility] [address] [place], [address] Glucose [Mass/Vol] 154 mg/dL High 74-106 [facility] Comment on above: Result Comment: Fast ing Glucose result greater than or equal to 126 mg/dLsuggests DIABETES MELLITUS per A.D.A. criteria. Performed By: #### L 500.4050, L500.4100, L501.9520, L506.0400 ####[facility] [address] [place], [address] Potassium [Moles/Vol] 4.2 mmol/L Normal 3.5-5.1 [facility] Comment on above: Performed By: #### L 500.4050, L500.4100, L501.9520, L506.0400 ####[facility] [address] [place], [address] Sodium [Moles/Vol] 131 mmol/L Low 136-145 [facility] Comment on above: Performed By: #### L 500.4050, L500.4100, L501.9520, L506.0400 ####[facility] [address] [place], [address] T PROT 7.5 g/dL Normal 6.4-8.2 [facility] Comment on above: Performed By: #### L 500.4050, L500.4100, L501.9520, L506.0400 ####[facility] [address] [place], [address] Urea nitrogen [Mass/Vol] 16 mg/dL Normal 7-18 [facility] Comment on above: Performed By: #### L 500.4050, L500.4100, L501.9520, L506.0400 ####[facility] [address] [place], [address] Endocrinology Visit Reporton 03-20-2024 Endocrinology Visit Report Normal [facility] Lipid Profileon 03-20-2024 Cholesterol [Mass/Vol] 198 mg/dL Normal 200 [facility] Comment on above: Result Comment: <200 mg/dL Desirable 200-240 mg/dL Borderline >240 mg/dL High Risk Performed By: #### L 500.4050, L500.4100, L501.9520, L506.0400 ####[facility] [address] [place], [address] Cholesterol in HDL [Mass/Vol] 54 mg/dL Normal [facility] Comment on above: Result Comment: The drugs N-Acetylcysteine and Metamizole may falselydepress this assay. Reference Range HDL <40 mg/dL Low HDL Cholesterol HDL >or= 60 mg/dL High HDL Cholesterol Performed By: #### L 500.4050, L500.4100, L501.9520, L506.0400 ####[facility] [address] [place], [address] Cholesterol in LDL [Mass/Vol] 65 mg/dL Normal 0-130 [facility] Comment on above: Performed By: #### L 500.4050, L500.4100, L501.9520, L506.0400 ####[facility] [address] [place], [address] Cholesterol in VLDL [Mass/Vol] 79 mg/dL High 5-40 [facility] Comment on above: Performed By: #### L 500.4050, L500.4100, L501.9520, L506.0400 ####[facility] [address] [place], [address] Triglyceride [Mass/Vol] 396 mg/dL High [facility] Comment on above: Result Comment: The drugs N-Acetylcysteine and Metamizole may falselydepress this assay.Serum Triglycerides Reference Interval Normal <150 mg/dL Borderline high 150 - 199 mg/dL High 200 - 499 mg/dL Very High > or = 500 mg/dL Performed By: #### L 500.4050, L500.4100, L501.9520, L506.0400 ####[facility] [address] [place], [address] T4 Free Directon 03-20-2024 T4 FREE DIRECT 1.32 ng/dL Normal 0.76-1.46 [facility] Comment on above: Performed By: #### L 500.4050, L500.4100, L501.9520, L506.0400 ####[facility] [address] [place], [address] Thyroid Stim Hormone (TSH)on 03-20-2024 TSH 3.880 uIU/mL High 0.358-3.74 0 [facility] Comment on above: Performed By: #### L 500.4050, L500.4100, L501.9520, L506.0400 ####[facility] [address] [place], [address] Ankle Brachial Indexon 03-18 Ankle Brachial Index Normal [facility] SCRN MAMM (CAD)W/JOSE BILATo n 02-23-2024 SCRN MAMM (CAD)W/JOSE BILAT Normal [facility] Internal Medicine Office Vis iton 02-19-2024 Internal Medicine Office Visit Normal [facility] 12 Lead EKGon 01-29-2024 12 Lead EKG Normal [facility] Basic Metabolic Profile (BMP )on 01-29-2024 BUN/CRE 21.3 RATIO High 03-10 [facility] Comment on above: Performed By: #### L 300.3900, L100.0100, L500.2500 ####[facility] [address] [place], [address] CA,Total 9.1 mg/dL Normal 8.5-10.1 [facility] Comment on above: Performed By: #### L 300.3900, L100.0100, L500.2500 ####[facility] [address] [place], [address] Chloride [Moles/Vol] 100 mmol/L Normal 98-107 [facility] Comment on above: Performed By: #### L 300.3900, L100.0100, L500.2500 ####[facility] [address] [place], [address] CO2 [Moles/Vol] 21.0 mmol/L Normal 21.0-32.0 [facility] Comment on above: Performed By: #### L 300.3900, L100.0100, L500.2500 ####[facility] [address] [place], [address] Creatinine [Mass/Vol] 1.36 mg/dL High 0.55-1.02 [facility] Comment on above: Result Comment: The validity of the calculated GFR GFRAA in patients over70 years has not been determined. Clinical correlation isessential. Performed By: #### L 300.3900, L100.0100, L500.2500 ####[facility] [address] [place], [address] ECRCL 35.80 ml/min Normal [facility] Comment on above: Performed By: #### L 300.3900, L100.0100, L500.2500 ####[facility] [address] [place], [address] EST GFR - AA 50 mL/min Low >60 [facility] Comment on above: Result Comment: Afri can [place] GFR Calc Performed By: #### L 300.3900, L100.0100, L500.2500 ####[facility] [address] [place], [address] GAP 8 Normal 5-15 [facility] Comment on above: Performed By: #### L 300.3900, L100.0100, L500.2500 ####[facility] [address] [place], [address] GFR/1.73 sq M.predicted among non-blacks MDRD (S/P/Bld) [Vol rate/Area] 41 mL/min/{1.73_m2} Low >60 [facility] Comment on above: Result Comment: Non- GFR Calc Performed By: #### L 300.3900, L100.0100, L500.2500 ####[facility] [address] [place], [address] Glucose [Mass/Vol] 76 mg/dL Normal 74-106 [facility] Comment on above: Performed By: #### L 300.3900, L100.0100, L500.2500 ####[facility] [address] [place], [address] Potassium [Moles/Vol] 4.4 mmol/L Normal 3.5-5.1 [facility] Comment on above: Result Comment: Mode rate Hemolysis, Result may be falsely increased. Performed By: #### L 300.3900, L100.0100, L500.2500 ####[facility] [address] [place], [address] Sodium [Moles/Vol] 129 mmol/L Low 136-145 [facility] Comment on above: Performed By: #### L 300.3900, L100.0100, L500.2500 ####[facility] [address] [place], [address] Urea nitrogen [Mass/Vol] 29 mg/dL High 7-18 [facility] Comment on above: Performed By: #### L 300.3900, L100.0100, L500.2500 ####[facility] [address] [place], [address] Brain/Head without Contrasto n 01-29-2024 Brain/Head without Contrast Normal [facility] CBC W/Diff, Automatedon Absolute Lymph 1.95 X10 3/uL Normal 0.83-4.51 [facility] Comment on above: Performed By: #### L 300.3900, L100.0100, L500.2500 ####[facility] [address] [place], [address] Absolute Neut 6.7 X10 3/uL Normal 2.0-7.7 [facility] Comment on above: Performed By: #### L 300.3900, L100.0100, L500.2500 ####[facility] [address] [place], [address] Basophils/100 WBC (Bld) 0.6 % Normal 0-1 [facility] Comment on above: Performed By: #### L 300.3900, L100.0100, L500.2500 ####[facility] [address] [place], [address] Eosinophils/100 WBC (Bld) 2.0 % Normal 0-5 [facility] Comment on above: Performed By: #### L 300.3900, L100.0100, L500.2500 ####[facility] [address] [place], [address] Erythrocyte distribution width (RBC) [Ratio] 17.0 % High 11.6-14.6 [facility] Comment on above: Performed By: #### L 300.3900, L100.0100, L500.2500 ####[facility] [address] [place], [address] Hematocrit (Bld) [Volume fraction] 29.3 % Low 37-47 [facility] Comment on above: Performed By: #### L 300.3900, L100.0100, L500.2500 ####[facility] [address] [place], [address] Hemoglobin (Bld) [Mass/Vol] 9.2 g/dL Low 12.0-15.0 [facility] Comment on above: Performed By: #### L 300.3900, L100.0100, L500.2500 ####[facility] [address] [place], [address] IG% 1.300 High 0.0-0.9 [facility] Comment on above: Result Comment: IG% - Immature Granulocytes (promyelocytes, myelocytes andmetamyelocytes) > 1% indicates that a LEFT SHIFT is Present. Performed By: #### L 300.3900, L100.0100, L500.2500 ####[facility] [address] [place], [address] Lymphocytes/100 WBC (Bld) 19.9 % Normal 19-41 [facility] Comment on above: Performed By: #### L 300.3900, L100.0100, L500.2500 ####[facility] [address] [place], [address] MCH (RBC) [Entitic mass] 27.8 pg Normal 27.0-32.0 [facility] Comment on above: Performed By: #### L 300.3900, L100.0100, L500.2500 ####[facility] [address] [place], [address] MCHC (RBC) [Mass/Vol] 31.4 g/dL Low 32-36 [facility] Comment on above: Performed By: #### L 300.3900, L100.0100, L500.2500 ####[facility] [address] [place], [address] MCV (RBC) [Entitic vol] 88.5 fL Normal 81-99 [facility] Comment on above: Performed By: #### L 300.3900, L100.0100, L500.2500 ####[facility] [address] [place], [address] Monocytes/100 WBC (Bld) 8.4 % Normal 0-10 [facility] Comment on above: Performed By: #### L 300.3900, L100.0100, L500.2500 ####[facility] [address] [place], [address] Neutrophils/100 WBC (Bld) 67.8 % Normal 47-70 [facility] Comment on above: Performed By: #### L 300.3900, L100.0100, L500.2500 ####[facility] [address] [place], [address] Nucleated RBC (Bld) [#/Vol] 0 10*3/uL Normal 0-5 [facility] Comment on above: Performed By: #### L 300.3900, L100.0100, L500.2500 ####[facility] [address] [place], [address] Platelet mean volume (Bld) [Entitic vol] 8.8 fL Normal 6.2-12.0 [facility] Comment on above: Performed By: #### L 300.3900, L100.0100, L500.2500 ####[facility] [address] [place], [address] Platelets (Bld) [#/Vol] 454 10*3/uL High 150-450 [facility] Comment on above: Performed By: #### L 300.3900, L100.0100, L500.2500 ####[facility] [address] [place], [address] RBC (Bld) [#/Vol] 3.31 10*6/uL Low 4.2-5.4 [facility] Comment on above: Performed By: #### L 300.3900, L100.0100, L500.2500 ####[facility] [address] [place], [address] RDW SD 55.1 fl High 35.1-43.9 [facility] Comment on above: Performed By: #### L 300.3900, L100.0100, L500.2500 ####[facility] [address] [place], [address] WBC (Bld) [#/Vol] 9.8 10*3/uL Normal 4.4-11.0 [facility] Comment on above: Performed By: #### L 300.3900, L100.0100, L500.2500 ####[facility] [address] [place], [address] Chest 1 View (Portable)on Chest 1 View (Portable) Normal [facility] Emergency Department Summary on 01-29-2024 Emergency Department Summary Normal [facility] Prothrombin Time w/INRon INR Normal [facility] Comment on above: Result Comment: Canc elled via OM: MD Ordered Performed By: #### L 300.3900, L100.0100, L500.2500 ####[facility] [address] [place], [address] PROTIME Normal 11.7-14.9 [facility] Comment on above: Result Comment: Canc elled via OM: Ordered Performed By: #### L 300.3900, L100.0100, L500.2500 ####[facility] [address] [place], [address] Absolute lymphocyte countOrd ered By: Denise Uribe on 09-14-2023 Lymphocytes Auto (Unsp spec) [#/Vol] 1.66 10*3/uL 0.83-4.51 [facility] Automated lymphocyte count a s percentage of total leukocytesOrdered By: Denise Uribe on 09-14-2023 Lymphocytes/100 WBC Auto (Unsp spec) 20.1 % 19-41 [facility] Basophil percentageOrdered B y: Denise Uribe on 09-14-2023 Basophil percentage 9.6 g/dL 12.0-15.0 [facility] Basophil percentage 153 mg/dL 74-106 [facility] Basophil percentage 7.9 g/dL 6.4-8.2 [facility] Basophil percentage 0.40 mg/dL 0.20-1.00 [facility] Basophil percentage 132 mmol/L 136-145 [facility] Basophil percentage 4.5 mmol/L 3.5-5.1 [facility] Basophil percentage 97 mmol/L 98-107 [facility] Basophils (Bld) [#/Vol] 8.3 10*3/uL 4.4-11.0 [facility] Basophils (Bld) [#/Vol] 5.6 10*3/uL 2.0-7.7 [facility] Basophils/100 WBC (Bld) 68.1 % 47-70 [facility] Basophils/100 WBC (Bld) 7.7 % 0-10 [facility] Basophils/100 WBC (Bld) 2.7 % 0-5 [facility] Basophils/100 WBC (Bld) 0.8 % 0-1 [facility] Determination of erythrocyte mean corpuscular volume (MCV)Ordered By: Denise Uribe on 09-14-2023 MCV (RBC) [Entitic vol] 93.0 fL 81-99 [facility] Erythrocyte distribution wid th ratioOrdered By: Denise Uribe on 09-14-2023 Erythrocyte distribution width (RBC) [Ratio] 17.2 % 11.6-14.6 [facility] Erythrocyte distribution wid th standard deviationOrdered By: Denise Uribe on 09-14-2023 Erythrocyte distribution width (RBC) [Entitic vol] 58.4 fL 35.1-43.9 [facility] Hematocrit Auto (Bld) [Volum e fraction]Ordered By: Denise Uribe on 09-14-2023 Hematocrit (Bld) [Volume fraction] 30.6 % 37-47 [facility] Immature granulocytes/100 WB C Auto (Bld)Ordered By: Denise Uribe on 09-14-2023 Immature granulocytes/100 WBC (Bld) 0.600 % 0.0-0.9 [facility] Iron measurement (mass/mass) Ordered By: Denise Uribe on 09-14-2023 Iron (Unsp spec) [Mass/Mass] 43 ug/dL 50-170 [facility] No Panel InformationOrdered By: Denise Uribe on 09-14-2023 29.2 pg 27.0-32.0 [facility] 31.4 g/dL 32-36 [facility] 507 K/mm3 150-450 [facility] 9.1 fl 6.2-12.0 [facility] 0 % 0-5 [facility] 34 mL/min >60 [facility] 41 mL/min >60 [facility] 21.2 RATIO 10-20 [facility] 4.6 g/dL 2.2-4.2 [facility] 0.7 RATIO 0.9-2.4 [facility] 115 U/L 45-117 [facility] 29 U/L 13-56 [facility] 23.0 mmol/L 21.0-32.0 [facility] 440 ug/dL 250-450 [facility] 33 ng/mL 8-252 [facility] RBC Auto (Bld) [#/Vol]Ordere d By: Denise Uribe on 09-14-2023 RBC (Bld) [#/Vol] 3.29 10*6/uL 4.2-5.4 [facility] Serum or plasma calcium jamey urement (mass/volume)Ordered By: Denise Uribe on 09-14-2023 Calcium [Mass/Vol] 9.1 mg/dL 8.5-10.1 [facility] Serum or plasma creatinine m easurement (mass/volume)Ordered By: Denise Uribe on 09-14-2023 Creatinine [Mass/Vol] 1.60 mg/dL 0.55-1.02 [facility] Serum or plasma iron saturat ion measurement (mass fraction)Ordered By: Denise Uribe on 09-14-2023 Iron saturation [Mass fraction] 9.8 % 15.0-55.0 [facility] Serum or plasma urea nitroge n measurement (mass/volume)Ordered By: Denise Uribe on 09-14-2023 Urea nitrogen [Mass/Vol] 34 mg/dL 7-18 [facility] Thin prep Papanicolaou smear with manual screeningOrdered By: Denise Uribe on 09-14-2023 Thin prep Papanicolaou smear with manual screening 3.3 g/dL 3.2-5.0 [facility] Thin prep Papanicolaou smear with manual screening 16 U/L 15-37 [facility] Thin prep Papanicolaou smear with manual screening 12 5-15 [facility] Basophil percentageOrdered B y: Tobi Riojas on 09-11-2023 Basophil percentage 0 SEEN /hpf 0-5 [facility] Basophil percentage 164 mg/dL 74-106 [facility] Basophil percentage 8.0 g/dL 6.4-8.2 [facility] Basophil percentage 0.50 mg/dL 0.20-1.00 [facility] Basophil percentage 129 mmol/L 136-145 [facility] Basophil percentage 4.6 mmol/L 3.5-5.1 [facility] Basophil percentage 98 mmol/L 98-107 [facility] Bilirubin Test strip Ql (U)O rdered By: Tobi Riojas on 09-11-2023 Bilirubin Ql (U) Negative Negative [facility] Ketones Test strip Ql (U)Ord ered By: Tobi Riojas on 09-11-2023 Ketones Ql (U) Negative Negative [facility] Mucus LM Ql (Urine sed)Order ed By: Tobiswathi Krishnano on 09-11-2023 Mucus Ql (Urine sed) 0 SEEN /hpf [facility] Nitrite Test strip Ql (U)Ord ered By: Tobi Riojas on 09-11-2023 Nitrite Ql (U) Negative Negative [facility] No Panel InformationOrdered By: Tobi Krishnano on 09-11-2023 0 SEEN /hpf 0-5 [facility] 33 mL/min >60 [facility] 40 mL/min >60 [facility] 29.71 ml/min [facility] 21.1 RATIO 10-20 [facility] 4.6 g/dL 2.2-4.2 [facility] 0.7 RATIO 0.9-2.4 [facility] 122 U/L 45-117 [facility] 25 U/L 13-56 [facility] 21.0 mmol/L 21.0-32.0 [facility] Protein Test strip Ql (U)Ord ered By: Tobi Riojas on 09-11-2023 Protein Ql (U) 15 mg/dl Negative [facility] Serum or plasma calcium jamey urement (mass/volume)Ordered By: Tobi Riojas on 09-11-2023 Calcium [Mass/Vol] 8.7 mg/dL 8.5-10.1 [facility] Serum or plasma creatinine m easurement (mass/volume)Ordered By: Tobi Riojas on 09-11-2023 Creatinine [Mass/Vol] 1.66 mg/dL 0.55-1.02 [facility] Serum or plasma urea nitroge n measurement (mass/volume)Ordered By: Tobi Riojas on 09-11-2023 Urea nitrogen [Mass/Vol] 35 mg/dL 7-18 [facility] Squamous epithelial cells de tection in urine sediment by light microscopyOrdered By: Tobi Riojas on 09-11-2023 Epithelial cells.squamous LM Ql (Urine sed) 0 SEEN /hpf 5-10 [facility] Thin prep Papanicolaou smear with manual screeningOrdered By: Tobi Riojas on 09-11-2023 Thin prep Papanicolaou smear with manual screening 3.4 g/dL 3.2-5.0 [facility] Thin prep Papanicolaou smear with manual screening 29 U/L 15-37 [facility] Thin prep Papanicolaou smear with manual screening 10 5-15 [facility] Urine blood detectionOrdered By: Tobi Riojas on 09-11-2023 RBC Ql (U) Negative Negative [facility] Urine clarityOrdered By: Tobi Riojas on 09-11-2023 Clarity (U) Sl. Cloudy Clear [facility] Urine color determinationOrd ered By: Tobi Riojas on 09-11-2023 Color (U) Straw Yellow [facility] Urine glucose detectionOrder ed By: Tobi Riojas on 09-11-2023 Glucose Ql (U) 1000 mg/dl Normal [facility] Urine leukocyte esterase det ection by dipstickOrdered By: Tobi Riojas on 09-11-2023 Leukocyte esterase Test strip Ql (U) Negative Negative [facility] Urine pHOrdered By: Tobi echevarria on 09-11-2023 pH (U) 6.0 [pH] 5.0 - 8.0 [facility] Urine sediment bacteria coun t by microscopy (number/high power field)Ordered By: Tobi Riojas on 09-11-2023 Bacteria LM.HPF (Urine sed) [#/Area] 0 /[HPF] None Seen [facility] Urine specific gravity measu rementOrdered By: Tobiswathi Riojas on 09-11-2023 Specific gravity (U) [Rel density] 1.010 1.002-1.03 0 [facility] Urine urobilinogen measureme ntOrdered By: Tobi Riojas on 09-11-2023 Urobilinogen Ql (U) Normal mg/dl Normal [facility] Absolute lymphocyte countOrd ered By: Denise Uribe on 08-17-2023 Lymphocytes Auto (Unsp spec) [#/Vol] 1.62 10*3/uL 0.83-4.51 [facility] Automated lymphocyte count a s percentage of total leukocytesOrdered By: Denise Uribe on 08-17-2023 Lymphocytes/100 WBC Auto (Unsp spec) 18.1 % 19-41 [facility] Bacteria identified Cx Nom ( U)Ordered By: Denise Uribe on 08-17-2023 Culture, urine Presumptive C albicans [facility] Basophil percentageOrdered B y: Denise Uribe on 08-17-2023 Basophil percentage 0-5 SEEN /hpf 0-5 [facility] Basophil percentage 10.8 g/dL 12.0-15.0 [facility] Basophil percentage 162 mg/dL 74-106 [facility] Basophil percentage 134 mmol/L 136-145 [facility] Basophil percentage 4.2 mmol/L 3.5-5.1 [facility] Basophil percentage 98 mmol/L 98-107 [facility] Basophils (Bld) [#/Vol] 9.0 10*3/uL 4.4-11.0 [facility] Basophils (Bld) [#/Vol] 6.3 10*3/uL 2.0-7.7 [facility] Basophils/100 WBC (Bld) 0.8 % 0-1 [facility] Basophils/100 WBC (Bld) 70.8 % 47-70 [facility] Basophils/100 WBC (Bld) 6.9 % 0-10 [facility] Basophils/100 WBC (Bld) 2.5 % 0-5 [facility] Chloride [Moles/Vol] 98 mmol/L 98-107 [facility] Eosinophils/100 WBC (Bld) 2.5 % 0-5 [facility] Glucose [Mass/Vol] 162 mg/dL 74-106 [facility] Comment on above: Fasting Glucose resu lt greater than or equal to 126 mg/dL suggests DIABETES MELLITUS per A.D.A. criteria. Hemoglobin (Bld) [Mass/Vol] 10.8 g/dL 12.0-15.0 [facility] Monocytes/100 WBC (Bld) 6.9 % 0-10 [facility] Neutrophils (Bld) [#/Vol] 6.3 10*3/uL 2.0-7.7 [facility] Neutrophils/100 WBC (Bld) 70.8 % 47-70 [facility] Potassium [Moles/Vol] 4.2 mmol/L 3.5-5.1 [facility] Sodium [Moles/Vol] 134 mmol/L 136-145 [facility] WBC (Bld) [#/Vol] 9.0 10*3/uL 4.4-11.0 [facility] Bilirubin Test strip Ql (U)O rdered By: Denise Uribe on 08-17-2023 Bilirubin Ql (U) Negative Negative [facility] Culture, urineOrdered By: Jann Uribe on 08-17-2023 Bacteria identified Cx Nom (U) Presumptive C albicans [facility] Determination of erythrocyte mean corpuscular volume (MCV)Ordered By: Denise Uribe on 03-28-2024 MCV (RBC) [Entitic vol] 91.2 fL 81-99 [facility] Erythrocyte distribution wid th ratioOrdered By: Denise Uribe on 08-17-2023 Erythrocyte distribution width (RBC) [Ratio] 16.0 % 11.6-14.6 [facility] Erythrocyte distribution wid th standard deviationOrdered By: Denise Uribe on 08-17-2023 Erythrocyte distribution width (RBC) [Entitic vol] 52.1 fL 35.1-43.9 [facility] Hematocrit Auto (Bld) [Volum e fraction]Ordered By: Denise Uribe on 08-17-2023 Hematocrit (Bld) [Volume fraction] 33.0 % 37-47 [facility] Immature granulocytes/100 WB C Auto (Bld)Ordered By: Denise Uribe on 08-17-2023 Immature granulocytes/100 WBC (Bld) 0.900 % 0.0-0.9 [facility] Comment on above: IG% - Immature Granu locytes (promyelocytes, myelocytes and metamyelocytes) > 1% indicates that a LEFT SHIFT is Present. Ketones Test strip Ql (U)Ord ered By: Denise Uribe on 08-17-2023 Ketones Ql (U) Negative Negative [facility] Laboratory - Chemistry and C hemistry - challengeOrdered By: Denise Uribe on 08-17-2023 CO2 [Moles/Vol] 27.0 mmol/L 21.0-32.0 [facility] Urea nitrogen/Creatinine [Mass ratio] 23.4 mg/mg 10-20 [facility] - Hematology and Cell countsOrdered By: Denise Uribe on 08-17-2023 MCH (RBC) [Entitic mass] 29.8 pg 27.0-32.0 [facility] MCHC (RBC) [Mass/Vol] 32.7 g/dL 32-36 [facility] Nucleated RBC/100 WBC (Bld) [Ratio] 0 % 0-5 [facility] Platelet mean volume (Bld) [Entitic vol] 9.2 fL 6.2-12.0 [facility] Platelets (Bld) [#/Vol] 457 10*3/uL 150-450 [facility] Mucus LM Ql (Urine sed)Order ed By: Denise Uribe on 08-17-2023 Mucus Ql (Urine sed) 0 SEEN /hpf [facility] Nitrite Test strip Ql (U)Ord ered By: Denise Uribe on 08-17-2023 Nitrite Ql (U) Negative Negative [facility] [facility] No Panel InformationOrdered By: Denise Uribe on 08-17-2023 Estimated GFR (MDRD) Amer 46 mL/min >60 [facility] Comment on above: GFR Calc Estimated GFR (MDRD) Non-Af Amer 38 mL/min >60 [facility] Comment on above: Non- GFR Calc Urine RBC 0 SEEN /hpf 0-5 [facility] 29.8 pg 27.0-32.0 [facility] 32.7 g/dL 32-36 [facility] 457 K/mm3 150-450 [facility] 9.2 fl 6.2-12.0 [facility] 0 % 0-5 [facility] 0 SEEN /hpf 0-5 [facility] 38 mL/min >60 [facility] 46 mL/min >60 [facility] 23.4 RATIO 10-20 [facility] 27.0 mmol/L 21.0-32.0 [facility] Protein Test strip Ql (U)Ord ered By: Denise Uribe on 08-17-2023 Protein Ql (U) Negative Negative [facility] RBC Auto (Bld) [#/Vol]Ordere d By: Denise Uribe on 08-17-2023 RBC (Bld) [#/Vol] 3.62 10*6/uL 4.2-5.4 [facility] Serum or plasma calcium jamey urement (mass/volume)Ordered By: Denise Uribe on 08-17-2023 Calcium [Mass/Vol] 9.3 mg/dL 8.5-10.1 [facility] Serum or plasma creatinine m easurement (mass/volume)Ordered By: Denise Uribe on 08-17-2023 Creatinine [Mass/Vol] 1.45 mg/dL 0.55-1.02 [facility] Comment on above: The validity of the calculated GFR & GFRAA in patients over 70 years has not been determined. Clinical correlation is essential. Serum or plasma urea nitroge n measurement (mass/volume)Ordered By: Denise Uribe on 08-17-2023 Urea nitrogen [Mass/Vol] 34 mg/dL 7-18 [facility] Squamous epithelial cells de tection in urine sediment by light microscopyOrdered By: Denise Uribe on 08-17-2023 Epithelial cells.squamous LM Ql (Urine sed) 0-5 SEEN /hpf 5-10 [facility] Thin prep Papanicolaou smear with manual screeningOrdered By: Denise Uribe on 08-17-2023 Thin prep Papanicolaou smear with manual screening 9 5-15 [facility] Urine blood detectionOrdered By: Denise Uribe on 08-17-2023 RBC Ql (U) Negative Negative [facility] Urine clarityOrdered By: Mina Uribe on 08-17-2023 Clarity (U) Clear Clear [facility] Urine color determinationOrd ered By: Denise Uribe on 08-17-2023 Color (U) Yellow Yellow [facility] Urine glucose detectionOrder ed By: Denise Uribe on 08-17-2023 Glucose Ql (U) 1000 mg/dl Normal [facility] Urine leukocyte esterase det ection by dipstickOrdered By: Denise Uribe on 08-17-2023 Leukocyte esterase Test strip Ql (U) 100 /ul Negative [facility] Urine pHOrdered By: Denise pereira on 08-17-2023 pH (U) 6.5 [pH] 5.0 - 8.0 [facility] Urine sediment bacteria coun t by microscopy (number/high power field)Ordered By: Denise Uribe on 08-17-2023 Bacteria LM.HPF (Urine sed) [#/Area] 0 /[HPF] None Seen [facility] Urine sediment yeast count b y microscopy (number/high powered field)Ordered By: Denise Uribe on 08-17-2023 Yeast LM.HPF (Urine sed) [#/Area] RARE /hpf None Seen [facility] Urine specific gravity measu rementOrdered By: Denise Uribe on 08-17-2023 Specific gravity (U) [Rel density] 1.010 1.002-1.03 0 [facility] Urine urobilinogen measureme ntOrdered By: Denise Uribe on 08-17-2023 Urobilinogen Ql (U) Normal mg/dl Normal [facility] - Hematology and Cell countson 05-08-2023 HbA1c (Bld) [Mass fraction] 9.6 % 4.2-6.3 [facility] Basophil percentageOrdered B y: Denise Uribe on 02-16-2023 Chloride [Moles/Vol] 98 mmol/L 98-107 [facility] Glucose [Mass/Vol] 319 mg/dL 74-106 [facility] Comment on above: Glucose result great er than or equal to 200 mg/dLsuggests DIABETES MELLITUS per A.D.A. criteria. Potassium [Moles/Vol] 4.4 mmol/L 3.5-5.1 [facility] Sodium [Moles/Vol] 130 mmol/L 136-145 [facility] WBC (Bld) [#/Vol] 9.3 10*3/uL 4.4-11.0 [facility] Blood erythrocytes count (nu mber/volume)Ordered By: Denise Uribe on 02-16-2023 RBC (Bld) [#/Vol] 4.22 10*6/uL 4.2-5.4 [facility] Blood hemoglobin measurement (mass/volume)Ordered By: Denise Uribe on 02-16-2023 Hemoglobin (Bld) [Mass/Vol] 13.0 g/dL 12.0-15.0 [facility] Blood platelet mean volumeOr dered By: Denise Uribe on 02-16-2023 Platelet mean volume (Bld) [Entitic vol] 9.5 fL 6.2-12.0 [facility] Determination of erythrocyte mean corpuscular volume (MCV)Ordered By: Denise Uribe on 02-16-2023 MCV (RBC) [Entitic vol] 94.1 fL 81-99 [facility] Hematocrit Auto (Bld) [Volum e fraction]Ordered By: Denise Uribe on 02-16-2023 Hematocrit (Bld) [Volume fraction] 39.7 % 37-47 [facility] Iron measurement (mass/mass) Ordered By: Denise Uribe on 02-16-2023 Iron (Unsp spec) [Mass/Mass] 61 ug/dL 50-170 [facility] Laboratory - Chemistry and C hemistry - challengeOrdered By: Denise Uribe on 02-16-2023 CO2 [Moles/Vol] 26.0 mmol/L 21.0-32.0 [facility] Urea nitrogen/Creatinine [Mass ratio] 22.0 mg/mg 10-20 [facility] - Hematology and Cell countson 02-16-2023 HbA1c (Bld) [Mass fraction] 9.6 % 4.2-6.3 [facility] - Hematology and Cell countsOrdered By: Denise Uribe on 02-16-2023 Erythrocyte distribution width (RBC) [Entitic vol] 51.8 fL 35.1-43.9 [facility] Erythrocyte distribution width (RBC) [Ratio] 15.0 % 11.6-14.6 [facility] MCH (RBC) [Entitic mass] 30.8 pg 27.0-32.0 [facility] MCHC Auto (RBC) [Mass/Vol]Or dered By: Denise Uribe on 02-16-2023 MCHC (RBC) [Mass/Vol] 32.7 g/dL 32-36 [facility] No Panel InformationOrdered By: Denise Uribe on 02-16-2023 Total Iron Binding Capacity 372 ug/dL 250-450 [facility] Urine Microalbumin/Creatinin e Ratio 137.5 mg/g CRE <30 [facility] Vitamin D 25-Hydroxy 55.0 ng/mL [facility] Comment on above: Vitamin D 25(OH) Sta tus Range Deficiency <20 ng/mL (50nmol/L) Insufficiency 20 - 30 ng/mL (50 - 75 nmol/L) Sufficiency 30 - 100 ng/mL (75 - 250 nmol/L) Toxicity >100 ng/mL (>250 nmol/L) Estimated GFR (MDRD) Amer 52 mL/min >60 [facility] Comment on above: GFR Calc Estimated GFR (MDRD) Non-Af Amer 43 mL/min >60 [facility] Comment on above: Non- GFR Calc Platelets bldOrdered By: Mina Uribe on 02-16-2023 Platelets (Bld) [#/Vol] 453 10*3/uL 150-450 [facility] Serum or plasma calcium jamey urement (mass/volume)Ordered By: Denise Uribe on 02-16-2023 Calcium [Mass/Vol] 8.8 mg/dL 8.5-10.1 [facility] Serum or plasma creatinine m easurement (mass/volume)Ordered By: Denise Uribe on 02-16-2023 Creatinine [Mass/Vol] 1.32 mg/dL 0.55-1.02 [facility] Comment on above: The validity of the calculated GFR & GFRAA in patients over 70 years has not been determined. Clinical correlation is essential. Serum or plasma ferritin joshua surement (mass/volume)Ordered By: Denise Uribe on 02-16-2023 Ferritin [Mass/Vol] 42 ng/mL 8-252 [facility] Serum or plasma iron saturat ion measurement (mass fraction)Ordered By: Denise Uribe on 02-16-2023 Iron saturation [Mass fraction] 16.4 % 15.0-55.0 [facility] Serum or plasma urea nitroge n measurement (mass/volume)Ordered By: Denise Uribe on 02-16-2023 Urea nitrogen [Mass/Vol] 29 mg/dL 7-18 [facility] Thin prep Papanicolaou smear with manual screeningOrdered By: Denise Uribe on 02-16-2023 Thin prep Papanicolaou smear with manual screening 60.5 mg/L NO RANGE EST. [facility] Thin prep Papanicolaou smear with manual screening 6 5-15 [facility] Urine creatinine measurement (mass/volume)Ordered By: Denise Uribe on 02-16-2023 Creatinine (U) [Mass/Vol] 44.00 mg/dL NO RANGE EST. [facility] Basophil percentageOrdered B y: Denise Uribe on 12-20-2022 Creatinine [Mass/Vol] 1.3 mg/dL 0.55-1.02 [facility] - Chemistry and C hemistry - challengeOrdered By: Denise Uribe on 12-20-2022 GFR/1.73 sq M.predicted among non-blacks MDRD (S/P/Bld) [Vol rate/Area] 44.0000 mL/min/{1.73_m2} >60 [facility] - Hematology and Cell countson 11-17-2022 HbA1c (Bld) [Mass fraction] 8.5 % 4.2-6.3 [facility] No Panel Informationon 11-17 8.5 % 4.2-6.3 [facility] Absolute lymphocyte countOrd ered By: Dr. Brar on 09-15-2022 Lymphocytes Auto (Unsp spec) [#/Vol] 1.93 10*3/uL 0.83-4.51 [facility] Basophil percentageOrdered B y: Dr. Brar on 09-15-2022 Basophil percentage 0 SEEN /hpf 0-5 [facility] Basophil percentage 199 mg/dL 74-106 [facility] Basophil percentage 8.1 g/dL 6.4-8.2 [facility] Basophil percentage 0.40 mg/dL 0.20-1.00 [facility] Basophil percentage 134 mmol/L 136-145 [facility] Basophil percentage 3.6 mmol/L 3.5-5.1 [facility] Basophil percentage 105 mmol/L 98-107 [facility] Basophils (Bld) [#/Vol] 15.1 10*3/uL 4.4-11.0 [facility] Basophils (Bld) [#/Vol] 12.1 10*3/uL 2.0-7.7 [facility] Basophils/100 WBC (Bld) 80.4 % 47-70 [facility] Basophils/100 WBC (Bld) 0.3 % 0-1 [facility] Basophil percentageOrdered B y: Jozef Brar on 09-15-2022 Bilirubin [Mass/Vol] 0.40 mg/dL 0.20-1.00 [facility] Comment on above: For patients on eltr ombopag therapy, use of Dimension [place] TBIL is not recommended. Chloride [Moles/Vol] 105 mmol/L 98-107 [facility] Eosinophils/100 WBC (Bld) 0.3 % 0-5 [facility] Glucose [Mass/Vol] 199 mg/dL 74-106 [facility] Comment on above: Fasting Glucose resu lt greater than or equal to 126 mg/dL suggests DIABETES MELLITUS per A.D.A. criteria. Neutrophils (Bld) [#/Vol] 12.1 10*3/uL 2.0-7.7 [facility] Neutrophils/100 WBC (Bld) 80.4 % 47-70 [facility] Potassium [Moles/Vol] 3.6 mmol/L 3.5-5.1 [facility] Protein [Mass/Vol] 8.1 g/dL 6.4-8.2 [facility] Sodium [Moles/Vol] 134 mmol/L 136-145 [facility] WBC (Bld) [#/Vol] 15.1 10*3/uL 4.4-11.0 [facility] Bilirubin Test strip Ql (U)O rdered By: Dr. Brar on 09-15-2022 Bilirubin Ql (U) Negative Negative [facility] Blood erythrocytes count (nu mber/volume)Ordered By: Dr. Brar on 09-15-2022 RBC (Bld) [#/Vol] 3.81 10*6/uL 4.2-5.4 [facility] Blood hemoglobin measurement (mass/volume)Ordered By: Dr. Brar on 09-15-2022 Hemoglobin (Bld) [Mass/Vol] 11.6 g/dL 12.0-15.0 [facility] Blood lymphocytes/100 leukoc ytesOrdered By: Dr. Brar on 09-15-2022 Lymphocytes/100 WBC (Bld) 12.8 % 19-41 [facility] Blood monocytes/100 leukocyt esOrdered By: Dr. Brar on 09-15-2022 Monocytes/100 WBC (Bld) 5.7 % 0-10 [facility] Blood platelet mean volumeOr dered By: Dr. Brar on 09-15-2022 Platelet mean volume (Bld) [Entitic vol] 9.6 fL 6.2-12.0 [facility] Determination of erythrocyte mean corpuscular volume (MCV)Ordered By: Dr. Brar on 09-15-2022 MCV (RBC) [Entitic vol] 95.8 fL 81-99 [facility] Hematocrit Auto (Bld) [Volum e fraction]Ordered By: Dr. Brar on 09-15-2022 Hematocrit (Bld) [Volume fraction] 36.5 % 37-47 [facility] Ketones Test strip Ql (U)Ord ered By: Dr. Brar on 09-15-2022 Ketones Ql (U) 50 mg/dl Negative [facility] Laboratory - Chemistry and C hemistry - challengeOrdered By: Jozef Brar on 09-15-2022 ALP [Catalytic activity/Vol] 93 U/L 45-117 [facility] ALT [Catalytic activity/Vol] 20 U/L 13-56 [facility] CO2 [Moles/Vol] 18.0 mmol/L 21.0-32.0 [facility] Globulin (S) [Mass/Vol] 4.9 g/dL 2.2-4.2 [facility] Lipase [Catalytic activity/Vol] 56 U/L 13-75 [facility] Comment on above: Please note:LIPASE r evised reference range effective 22. New Lipase methodology. Expected to produce lower values than the previous assay method. NEW Reference Range: 13 - 75 U/L Urea nitrogen/Creatinine [Mass ratio] 25.2 mg/mg 10-20 [facility] Laboratory - Hematology and Cell countsOrdered By: Jozef Brar on 09-15-2022 Erythrocyte distribution width (RBC) [Entitic vol] 59.0 fL 35.1-43.9 [facility] Erythrocyte distribution width (RBC) [Ratio] 16.6 % 11.6-14.6 [facility] Immature granulocytes/100 WBC (Bld) 0.500 % 0.0-0.9 [facility] Comment on above: IG% - Immature Granu locytes (promyelocytes, myelocytes and metamyelocytes) > 1% indicates that a LEFT SHIFT is Present. MCH (RBC) [Entitic mass] 30.4 pg 27.0-32.0 [facility] Nucleated RBC/100 WBC (Bld) [Ratio] 0 % 0-5 [facility] MCHC Auto (RBC) [Mass/Vol]Or dered By: Dr. Brar on 09-15-2022 MCHC (RBC) [Mass/Vol] 31.8 g/dL 32-36 [facility] Mucus LM Ql (Urine sed)Order ed By: Dr. Brar on 09-15-2022 Mucus Ql (Urine sed) 0 SEEN /hpf [facility] Nitrite Test strip Ql (U)Ord ered By: Dr. Brar on 09-15-2022 Nitrite Ql (U) Negative Negative [facility] No Panel InformationOrdered By: Jozef Brar on 09-15-2022 Valproic Acid (Depakene) Level 12 ug/mL 50-100 [facility] Estimated Creatinine Clearance Calc 50.87 ml/min [facility] Estimated GFR (MDRD) Amer 66 mL/min >60 [facility] Comment on above: GFR Calc Estimated GFR (MDRD) Non-Af Amer 55 mL/min >60 [facility] Comment on above: Non- GFR Calc No Panel InformationOrdered By: Dr. Brar on 09-15-2022 12 ug/mL 50-100 [facility] 30.4 pg 27.0-32.0 [facility] 16.6 % 11.6-14.6 [facility] 59.0 fl 35.1-43.9 [facility] 0.500 % 0.0-0.9 [facility] 0 % 0-5 [facility] 55 mL/min >60 [facility] 66 mL/min >60 [facility] 50.87 ml/min [facility] 25.2 RATIO 10-20 [facility] 4.9 g/dL 2.2-4.2 [facility] 56 U/L 13-75 [facility] 93 U/L 45-117 [facility] 20 U/L 13-56 [facility] 18.0 mmol/L 21.0-32.0 [facility] Platelets bldOrdered By: Dr. Brar on 09-15-2022 Platelets (Bld) [#/Vol] 490 10*3/uL 150-450 [facility] Protein Test strip Ql (U)Ord ered By: Dr. Brar on 09-15-2022 Protein Ql (U) 100 mg/dl Negative [facility] Serum or plasma albumin jamey urement (mass/volume)Ordered By: Dr. Brar on 09-15-2022 Albumin [Mass/Vol] 3.2 g/dL 3.2-5.0 [facility] Serum or plasma albumin/glob ulin mass ratioOrdered By: Dr. Brar on 09-15-2022 Albumin/Globulin [Mass ratio] 0.7 {ratio} 0.9-2.4 [facility] Serum or plasma calcium jamey urement (mass/volume)Ordered By: Dr. Barr on 09-15-2022 Calcium [Mass/Vol] 9.0 mg/dL 8.5-10.1 [facility] Serum or plasma creatinine m easurement (mass/volume)Ordered By: Dr. Brar on 09-15-2022 Creatinine [Mass/Vol] 1.07 mg/dL 0.55-1.02 [facility] Comment on above: The validity of the calculated GFR & GFRAA in patients over 70 years has not been determined. Clinical correlation is essential. Serum or plasma urea nitroge n measurement (mass/volume)Ordered By: Dr. Brar on 09-15-2022 Urea nitrogen [Mass/Vol] 27 mg/dL 7-18 [facility] Squamous epithelial cells de tection in urine sediment by light microscopyOrdered By: Dr. Brar on 09-15-2022 Epithelial cells.squamous LM Ql (Urine sed) 0-5 SEEN /hpf 5-10 [facility] Thin prep Papanicolaou smear with manual screeningOrdered By: Dr. Brar on 09-15-2022 Thin prep Papanicolaou smear with manual screening 14 U/L 15-37 [facility] Thin prep Papanicolaou smear with manual screening 11 5-15 [facility] Urine blood detectionOrdered By: Dr. Brar on 09-15-2022 RBC Ql (U) 25 /ul Negative [facility] RBC Ql (U) 0 SEEN /hpf 0-5 [facility] Urine clarityOrdered By: Dr. Brar on 09-15-2022 Clarity (U) Clear Clear [facility] Urine color determinationOrd ered By: Dr. Brar on 09-15-2022 Color (U) Yellow Yellow [facility] Urine glucose detectionOrder ed By: Dr. Brar on 09-15-2022 Glucose Ql (U) 1000 mg/dl Normal [facility] Urine leukocyte esterase det ection by dipstickOrdered By: Dr. Brar on 09-15-2022 Leukocyte esterase Test strip Ql (U) Negative Negative [facility] Urine pHOrdered By: Dr. Ty jones on 09-15-2022 pH (U) 5.0 [pH] 5.0 - 8.0 [facility] Urine sediment bacteria coun t by microscopy (number/high power field)Ordered By: Dr. Brar on 09-15-2022 Bacteria LM.HPF (Urine sed) [#/Area] 0 /[HPF] None Seen [facility] Urine sediment yeast count b y microscopy (number/high powered field)Ordered By: Dr. Brra on 09-15-2022 Yeast LM.HPF (Urine sed) [#/Area] 2 /[HPF] None Seen [facility] Urine specific gravity measu rementOrdered By: Dr. Brar on 09-15-2022 Specific gravity (U) [Rel density] 1.020 1.002-1.03 0 [facility] Urobilinogen Auto test strip Ql (U)Ordered By: Dr. Brar on 09-15-2022 Urobilinogen Ql (U) Normal mg/dl Normal [facility] Absolute lymphocyte countOrd ered By: Devi Delgado on 08-17-2022 Lymphocytes Auto (Unsp spec) [#/Vol] 2.04 10*3/uL 0.83-4.51 [facility] Basophil percentageOrdered B y: Devi Delgado on 08-17-2022 Basophil percentage 3.5 mg/dL 2.5-4.9 [facility] Basophil percentage 222 mg/dL 74-106 [facility] Basophil percentage 7.6 g/dL 6.4-8.2 [facility] Basophil percentage 0.20 mg/dL 0.20-1.00 [facility] Basophil percentage 167 mg/dL <200 [facility] Basophil percentage 306 mg/dL <199 [facility] Basophil percentage 135 mmol/L 136-145 [facility] Basophil percentage 4.5 mmol/L 3.5-5.1 [facility] Basophil percentage 102 mmol/L 98-107 [facility] Basophils (Bld) [#/Vol] 10.3 10*3/uL 4.4-11.0 [facility] Basophils (Bld) [#/Vol] 7.0 10*3/uL 2.0-7.7 [facility] Basophils/100 WBC (Bld) 0.8 % 0-1 [facility] Basophils/100 WBC (Bld) 67.7 % 47-70 [facility] Basophils/100 WBC (Bld) 1.7 % 0-5 [facility] Bilirubin [Mass/Vol] 0.20 mg/dL 0.20-1.00 [facility] Comment on above: For patients on eltr ombopag therapy, use of Dimension [place] TBIL is not recommended. Chloride [Moles/Vol] 102 mmol/L 98-107 [facility] Cholesterol [Mass/Vol] 167 mg/dL <200 [facility] Comment on above: <200 mg/dL Desirable 200-240 mg/dL Borderline >240 mg/dL High Risk Eosinophils/100 WBC (Bld) 1.7 % 0-5 [facility] Glucose [Mass/Vol] 222 mg/dL 74-106 [facility] Comment on above: Glucose result great er than or equal to 200 mg/dLsuggests DIABETES MELLITUS per A.D.A. criteria. Neutrophils (Bld) [#/Vol] 7.0 10*3/uL 2.0-7.7 [facility] Neutrophils/100 WBC (Bld) 67.7 % 47-70 [facility] Potassium [Moles/Vol] 4.5 mmol/L 3.5-5.1 [facility] Protein [Mass/Vol] 7.6 g/dL 6.4-8.2 [facility] Sodium [Moles/Vol] 135 mmol/L 136-145 [facility] Triglyceride [Mass/Vol] 306 mg/dL <199 [facility] Comment on above: The drugs N-Acetylcy steine and Metamizole may falsely depress this assay.Serum Triglycerides Reference Interval Normal <150 mg/dL Borderline high 150 - 199 mg/dL High 200 - 499 mg/dL Very High > or = 500 mg/dL WBC (Bld) [#/Vol] 10.3 10*3/uL 4.4-11.0 [facility] Blood erythrocytes count (nu mber/volume)Ordered By: Devi Delgado on 08-17-2022 RBC (Bld) [#/Vol] 3.54 10*6/uL 4.2-5.4 [facility] Blood hemoglobin measurement (mass/volume)Ordered By: Devi Delgado on 08-17-2022 Hemoglobin (Bld) [Mass/Vol] 10.5 g/dL 12.0-15.0 [facility] Blood lymphocytes/100 leukoc ytesOrdered By: Devi Delgado on 08-17-2022 Lymphocytes/100 WBC (Bld) 19.8 % 19-41 [facility] Blood monocytes/100 leukocyt esOrdered By: Devi Delgado on 08-17-2022 Monocytes/100 WBC (Bld) 8.3 % 0-10 [facility] Blood platelet mean volumeOr dered By: Devi Delgado on 08-17-2022 Platelet mean volume (Bld) [Entitic vol] 9.2 fL 6.2-12.0 [facility] Determination of erythrocyte mean corpuscular volume (MCV)Ordered By: Devi Delgado on 08-17-2022 MCV (RBC) [Entitic vol] 96.6 fL 81-99 [facility] Direct bilirubinOrdered By: Devi Delgado on 08-17-2022 Bilirubin.direct [Mass/Vol] 0.10 mg/dL 0.00-0.30 [facility] Hematocrit Auto (Bld) [Volum e fraction]Ordered By: Devi Delgado on 08-17-2022 Hematocrit (Bld) [Volume fraction] 34.2 % 37-47 [facility] Laboratory - Chemistry and C hemistry - challengeOrdered By: Devi Delgado on 08-17-2022 ALP [Catalytic activity/Vol] 107 U/L 45-117 [facility] ALT [Catalytic activity/Vol] 30 U/L 13-56 [facility] CO2 [Moles/Vol] 21.0 mmol/L 21.0-32.0 [facility] Globulin (S) [Mass/Vol] 4.4 g/dL 2.2-4.2 [facility] Urea nitrogen/Creatinine [Mass ratio] 20.9 mg/mg 10-20 [facility] - Hematology and Cell countsOrdered By: Devi Delgado on 08-17-2022 Erythrocyte distribution width (RBC) [Entitic vol] 58.4 fL 35.1-43.9 [facility] Erythrocyte distribution width (RBC) [Ratio] 16.6 % 11.6-14.6 [facility] Immature granulocytes/100 WBC (Bld) 1.700 % 0.0-0.9 [facility] Comment on above: IG% - Immature Granu locytes (promyelocytes, myelocytes and metamyelocytes) > 1% indicates that a LEFT SHIFT is Present. MCH (RBC) [Entitic mass] 29.7 pg 27.0-32.0 [facility] Nucleated RBC/100 WBC (Bld) [Ratio] 0 % 0-5 [facility] - Hematology and Cell countson 08-17-2022 HbA1c (Bld) [Mass fraction] 7.7 % 4.2-6.3 [facility] MCHC Auto (RBC) [Mass/Vol]Or dered By: Devi Delgado on 08-17-2022 MCHC (RBC) [Mass/Vol] 30.7 g/dL 32-36 [facility] No Panel InformationOrdered By: Devi Delgado on 08-17-2022 Estimated GFR (MDRD) Amer 49 mL/min >60 [facility] Comment on above: GFR Calc Estimated GFR (MDRD) Non-Af Amer 40 mL/min >60 [facility] Comment on above: Non- GFR Calc 29.7 pg 27.0-32.0 [facility] 16.6 % 11.6-14.6 [facility] 58.4 fl 35.1-43.9 [facility] 1.700 % 0.0-0.9 [facility] 0 % 0-5 [facility] 40 mL/min >60 [facility] 49 mL/min >60 [facility] 20.9 RATIO 10-20 [facility] 4.4 g/dL 2.2-4.2 [facility] 107 U/L 45-117 [facility] 30 U/L 13-56 [facility] 21.0 mmol/L 21.0-32.0 [facility] No Panel Informationon 08-17 7.7 % 4.2-6.3 [facility] Platelets bldOrdered By: Nelida Delgado on 03-29-2023 Platelets (Bld) [#/Vol] 606 10*3/uL 150-450 [facility] Serum or plasma albumin jamey urement (mass/volume)Ordered By: Devi Delgado on 08-17-2022 Albumin [Mass/Vol] 3.2 g/dL 3.2-5.0 [facility] Serum or plasma albumin/glob ulin mass ratioOrdered By: Devi Delgado on 08-17-2022 Albumin/Globulin [Mass ratio] 0.7 {ratio} 0.9-2.4 [facility] Serum or plasma calcium jamey urement (mass/volume)Ordered By: Devi Delgado on 08-17-2022 Calcium [Mass/Vol] 8.8 mg/dL 8.5-10.1 [facility] Serum or plasma cholesterol in HDL measurement (mass/volume)Ordered By: Devi Delgado on 08-17-2022 Cholesterol in HDL [Mass/Vol] 41 mg/dL >40 [facility] Comment on above: The drugs N-Acetylcy steine and Metamizole may falsely depress this assay. Reference Range HDL <40 mg/dL Low HDL Cholesterol HDL >or= 60 mg/dL High HDL Cholesterol Serum or plasma cholesterol in VLDL measurement (mass/volume)Ordered By: Devi Delgado on 08-17-2022 Cholesterol in VLDL [Mass/Vol] 61 mg/dL 5-40 [facility] Serum or plasma creatinine m easurement (mass/volume)Ordered By: Devi Delgado on 08-17-2022 Creatinine [Mass/Vol] 1.39 mg/dL 0.55-1.02 [facility] Comment on above: The validity of the calculated GFR & GFRAA in patients over 70 years has not been determined. Clinical correlation is essential. Serum or plasma low density lipoprotein (LDL) cholesterol measurement (mass/volume)Ordered By: Devi Delgado on 08-17-2022 Cholesterol in LDL [Mass/Vol] 65 mg/dL 0-130 [facility] Serum or plasma urea nitroge n measurement (mass/volume)Ordered By: Devi Delgado on 08-17-2022 Urea nitrogen [Mass/Vol] 29 mg/dL 7-18 [facility] Thin prep Papanicolaou smear with manual screeningOrdered By: Devi Delgado on 08-17-2022 Thin prep Papanicolaou smear with manual screening 13 U/L 15-37 [facility] Thin prep Papanicolaou smear with manual screening 12 5-15 [facility] CBC AND DIFFERENTIALon 08-15 % AUTOMATED IMMATURE GRAN 4.0 % High 0.0 - 0.9 [facility] Comment on above: Result Comment: Minerva ture Granulocyte Count (IG) includes promyelocytes, myelocytes and metamyelocytes but does not include bands. Percent differential counts (%) should be interpreted in the context of the absolute cell counts (cells/L). Performed By: #### C BCDF #### [address] [address] Basophils (Bld) [#/Vol] 0.12 10*3/uL High 0.00 - 0.10 [facility] Comment on above: Performed By: #### C BCDF #### [address] [address] Basophils/100 WBC (Bld) 0.8 % Normal 0.0 - 2.0 [facility] Comment on above: Performed By: #### C BCDF #### [address] [address] Eosinophils (Bld) [#/Vol] 0.17 10*3/uL Normal 0.00 - 0.70 [facility] Comment on above: Performed By: #### C BCDF #### [address] [address] Eosinophils/100 WBC (Bld) 1.1 % Normal 0.0 - 6.0 [facility] Comment on above: Performed By: #### C BCDF #### [address] [address] Erythrocyte distribution width (RBC) [Ratio] 16.0 % High 11.5 - 14.5 [facility] Comment on above: Performed By: #### C BCDF #### [address] [address] Hematocrit (Bld) [Volume fraction] 35.8 % Low 36.0 - 46.0 [facility] Comment on above: Performed By: #### C BCDF #### [address] [address] Hemoglobin (Bld) [Mass/Vol] 11.5 g/dL Low 12.0 - 16.0 [facility] Comment on above: Performed By: #### C BCDF #### [address] [address] Lymphocytes (Bld) [#/Vol] 2.19 10*3/uL Normal 1.20 - 4.80 [facility] Comment on above: Performed By: #### C BCDF #### [address] [address] Lymphocytes/100 WBC (Bld) 14.8 % Normal 13.0 - 44.0 [facility] Comment on above: Performed By: #### C BCDF #### [address] [address] MCHC (RBC) [Mass/Vol] 32.1 g/dL Normal 32.0 - 36.0 [facility] Comment on above: Performed By: #### C BCDF #### [address] [address] MCV (RBC) [Entitic vol] 93 fL Normal 80 - 100 [facility] Comment on above: Performed By: #### C BCDF #### [address] [address] Monocytes (Bld) [#/Vol] 0.81 10*3/uL Normal 0.10 - 1.00 [facility] Comment on above: Performed By: #### C BCDF #### [address] [address] Monocytes/100 WBC (Bld) 5.5 % Normal 2.0 - 10.0 [facility] Comment on above: Performed By: #### C BCDF #### [address] [address] Neutrophils (Bld) [#/Vol] 10.96 10*3/uL High 1.20 - 7.70 [facility] Comment on above: Result Comment: Perc ent differential counts (%) should be interpreted in the context of the absolute cell counts (cells/L). Performed By: #### C BCDF #### [address] [address] Neutrophils/100 WBC (Bld) 73.8 % Normal 40.0 - 80.0 [facility] Comment on above: Performed By: #### C BCDF #### [address] [address] Platelets (Bld) [#/Vol] 637 10*3/uL High 150 - 450 [facility] Comment on above: Performed By: #### C BCDF #### [address] [address] RBC 3.87 x10E12/L Low 4.00 - 5.20 [facility] Comment on above: Performed By: #### C BCDF #### [address] [address] WBC (Bld) [#/Vol] 14.8 10*3/uL High 4.4 - 11.3 [facility] Comment on above: Performed By: #### C BCDF #### [address] [address] CHEST 1 VIEWon 08-15-2022 CHEST 1 VIEW Patient Name: ASIF DELA CRUZ STUDY: CHEST 1 VIEW; 08/15/2022 12:50 pm INDICATION: weakness, n/v/d . COMPARISON: 10/24/2018 ACCESSION NUMBER(S): [id number] ORDERING CLINICIAN: YUDY BRIDGES FINDINGS: The lungs are clear without apparent pleural effusion. Unremarkable cardiomediastinal silhouette. Aortic atherosclerosis with slight tortuosity. No pulmonary vascular congestion. IMPRESSION: No active disease in the chest. Electronically signed by: ALESSANDRO DOMINGO MD Normal [facility] CLOST DIFF. TOXIN, PCRon CLOST.DIFF NAP 1 STRAIN (Presumptive) Canceled Normal Not Detected [facility] Comment on above: Order Comment: TEST CLOST DIFF. TOXIN, PCR WAS CANCELLED, 08/15/2022 18:51 nsr. Performed By: #### C DTPC #### [facility] [address] [place] [address] CLOST.DIFF.TOXIN,PCR Canceled Normal [facility] Comment on above: Order Comment: TEST CLOST [...] Performed By: #### C DTPC #### [facility] [address] [place] [id number] Lab Specimen Source Stool Normal [facility] Comment on above: Order Comment: TEST CLOST DIFF. TOXIN, PCR WAS CANCELLED, 08/15/2022 18:51 nsr. Performed By: #### C DTPC #### [facility] [address] [place] [id number] COMPREHENSIVE PANELon 2022 Albumin [Mass/Vol] 3.8 g/dL Normal 3.4 - 5.0 [facility] Comment on above: Performed By: #### U AMIC #### [address] [address] ALP [Catalytic activity/Vol] 116 U/L Normal 33 - 136 [facility] Comment on above: Performed By: #### U AMIC #### [address] [address] ALT [Catalytic activity/Vol] 20 U/L Normal 7 - 45 [facility] Comment on above: Result Comment: Milagros ents treated with Sulfasalazine may generate falsely decreased results for ALT. Performed By: #### U AMIC #### [address] [address] Anion gap [Moles/Vol] 15 mmol/L Normal 10 - 20 [facility] Comment on above: Performed By: #### U AMIC #### [address] [address] AST [Catalytic activity/Vol] 15 U/L Normal 9 - 39 [facility] Comment on above: Performed By: #### U AMIC #### [address] [address] Bilirubin [Mass/Vol] 0.5 mg/dL Normal 0.0 - 1.2 [facility] Comment on above: Performed By: #### U AMIC #### [address] [address] Calcium [Mass/Vol] 8.5 mg/dL Low 8.6 - 10.3 [facility] Comment on above: Performed By: #### U AMIC #### [address] [address] Chloride [Moles/Vol] 103 mmol/L Normal 98 - 107 [facility] Comment on above: Performed By: #### U AMIC #### [address] [address] Creatinine [Mass/Vol] 0.93 mg/dL Normal 0.50 - 1.05 [facility] Comment on above: Performed By: #### U AMIC #### [address] [address] GFR/1.73 sq M.predicted among non-blacks MDRD (S/P/Bld) [Vol rate/Area] 68 mL/min/{1.73_m2} Normal >90 [facility] Comment on above: Result Comment: CALC ULATIONS OF ESTIMATED GFR ARE PERFORMED USING THE 2020 CKD-EPI STUDY REFIT EQUATION WITHOUT THE RACE VARIABLE FOR THE IDMS-TRACEABLE CREATININE METHODS. https://jasn.asnjournals.org/content/early//ASN.14582 84974 Performed By: #### U AMIC #### [address] [address] Glucose [Mass/Vol] 131 mg/dL High 74 - 99 [facility] Comment on above: Performed By: #### U AMIC #### [address] [address] HCO3 (Bld) [Moles/Vol] 18 mmol/L Low 21 - 32 [facility] Comment on above: Performed By: #### U AMIC #### [address] [address] Potassium [Moles/Vol] 4.5 mmol/L Normal 3.5 - 5.3 [facility] Comment on above: Performed By: #### U AMIC #### [address] [address] Protein [Mass/Vol] 7.5 g/dL Normal 6.4 - 8.2 [facility] Comment on above: Performed By: #### U AMIC #### [address] [address] Sodium [Moles/Vol] 131 mmol/L Low 136 - 145 [facility] Comment on above: Performed By: #### U AMIC #### [address] [address] Urea nitrogen [Mass/Vol] 19 mg/dL Normal 6 - 23 [facility] Comment on above: Performed By: #### U AMIC #### [address] [address] [address] ABDOMEN AND PELVIS W IV C ONTRASTon 08-15-2022 CT ABDOMEN AND PELVIS W IV CONTRAST Patient Name: ASIF DELA CRUZ STUDY: CT ABDOMEN AND PELVIS W IV CONTRAST; 08/15/2022 3:17 pm INDICATION: 67 y/o F with diffuse abd pain, recent pancreatitis . LIMITATIONS: None. ACCESSION NUMBER(S): [id number] ORDERING CLINICIAN: YUDY BRIDGES TECHNIQUE: After the administration of oral [...] Moderate to advanced disc space loss with xaml-wq-tmgqpzyk endplate osteophytosis at L5-S1, unchanged. Mild bilateral [...] described. Electronically signed by: SANDY GALLAGHER MD [facility] Complete Blood Count + Diffe luis manueltialon 08-15-2022 Basophils/100 WBC (Bld) 0.8 % 0.0 - 2.0 [facility] Work Phone: Erythrocyte distribution width (RBC) [Ratio] 16.0 % above high threshold See Below [facility] Work Phone: Comment on above: Reference Range: 11. 5 - 14.5 Hematocrit (Bld) [Volume fraction] 35.8 % below low threshold See Below [facility] Work Phone: Comment on above: Reference Range: 36. 0 - 46.0 Hemoglobin (Bld) [Mass/Vol] 11.5 g/dL below low threshold See Below [facility] Work Phone: Comment on above: Reference Range: 12. 0 - 16.0 Lymphocytes/100 WBC (Bld) 14.8 % See Below [facility] Work Phone: Comment on above: Reference Range: 13. 0 - 44.0 MCHC (RBC) [Mass/Vol] 32.1 g/dL See Below [facility] Work Phone: Comment on above: Reference Range: 32. 0 - 36.0 MCV (RBC) [Entitic vol] 93 fL 80 - 100 [facility] Work Phone: Monocytes/100 WBC (Bld) 5.5 % 2.0 - 10.0 [facility] Work Phone: Neutrophils/100 WBC (Bld) 73.8 % See Below [facility] Work Phone: Comment on above: Reference Range: 40. 0 - 80.0 Platelets (Bld) [#/Vol] 637 10*3/uL above high threshold 150 - 450 [facility] Work Phone: RBC (Bld) [#/Vol] 3.87 {x10E12/L} below low threshold See Below [facility] Work Phone: Comment on above: Reference Range: 4.0 0 - 5.20 WBC (Bld) [#/Vol] 14.8 10*3/uL above high threshold 4.4 - 11.3 [facility] Work Phone: Complete Blood Count + Differential 0.12 {x10E9/L} above high threshold See Below [facility] Work Phone: Comment on above: Reference Range: 0.0 0 - 0.10 Complete Blood Count + Differential 0.17 {x10E9/L} See Below [facility] Work Phone: Comment on above: Reference Range: 0.0 0 - 0.70 Complete Blood Count + Differential 0.81 {x10E9/L} See Below [facility] Work Phone: Comment on above: Reference Range: 0.1 0 - 1.00 Complete Blood Count + Differential 2.19 {x10E9/L} See Below [facility] Work Phone: Comment on above: Reference Range: 1.2 0 - 4.80 Complete Blood Count + Differential 10.96 {x10E9/L} above high threshold See Below [facility] Work Phone: Comment on above: Reference Range: 1.2 0 - 7.70 Percent differential counts (%) should be interpreted in the context of the absolute cell counts (cells/L). Complete Blood Count + Differential 1.1 % 0.0 - 6.0 [facility] Work Phone: Complete Blood Count + Differential 4.0 % above high threshold 0.0 - 0.9 [facility] Work Phone: Comment on above: Immature Granulocyte [...] You may also be contacted by the [facility] to see if any of your close [...] or Naproxen (Aleve) can also be used. Xchr-trw-xgnaxev cough and cold medicines can be used according to the instructions on the package. Some kxib-iyw-iyjbkhp medicines also contain acetaminophen. Make sure you [...] water are not available, use alcohol-based hand account manager b2b. Avoid touching your eyes, nose, and mouth [...] 24 kalpesh (more content not included)... Normal [facility] INFLUENZA A/B, COVID 2019 PC R,SYMPTOMATICon 08-15-2022 INFLUENZA A, PCR Not detected Normal Not Detected [facility] Comment on above: Result Comment: Resp iratory virus testing is performed routinely by PCR for Influenza A/B and RSV. Not Detected results do not preclude Influenza A/B or RSV infections since the adequacy of sample collection or low viral burden may impact the clinical sensitivity of this test method. Performed By: #### C OINP #### [place] [address] INFLUENZA B, PCR Not detected Normal Not Detected [facility] Comment on above: Result Comment: Resp iratory virus testing is performed routinely by PCR for Influenza A/B and RSV. Not Detected results do not preclude Influenza A/B or RSV infections since the adequacy of sample collection or low viral burden may impact the clinical sensitivity of this test method. Performed By: #### C OINP #### [place] [address] SARS-CoV-2 (COVID-19) RNA JUAN+probe Ql (Unsp spec) Not detected Normal Not Detected [facility] Comment on above: Result Comment: . This test has received FDA Emergency Use Authorization (EUA) and has been verified by [facility]. This test is only authorized for the duration of time that circumstances exist to justify the authorization of the emergency use of in vitro diagnostic tests for the detection of SARS-CoV-2 virus and/or diagnosis of COVID-19 infection under section 564(b)(1) of the Act, 21 U.S.C. 360bbb-3(b)(1), unless the authorization is terminated or revoked sooner. [facility] is certified under CLIA-88 as qualified to perform high complexity testing. Testing is performed in the [facility] laboratory located at [address] [place] [address]. SARS-CoV-2/Flu/RSV Multiplex Test: Fact sheet for providers: https://www.fda.gov/media/779107/download Fact sheet for patients: https://www.fda.gov/media/952792/download Performed By: #### C OINP #### [place] [address] Lab Specimen Source Nasal, Nasopharyngeal Normal [facility] Comment on above: Performed By: #### C OINP #### [place] [address] INFLUENZA A/B, COVID 2019 PCR,SYMPTOMATIC Not detected See Below [employer] [facility] Work Phone: Comment on above: Reference Range: Not Detected.This test has received [facility] Emergency Use Authorization (EUA) and has been verified by [facility]. This test is only authorized for the duration of time that circumstances exist to justify the authorization of the emergency use of in vitro diagnostic tests for the detection of SARS-CoV-2 virus and/or diagnosis of COVID-19 infection under section 564(b)(1) of the Act, 21 U.S.C. 360bbb-3(b)(1), unless the authorization is terminated or revoked sooner. [facility] is certified under CLIA-88 as qualified to perform high complexity testing. Testing is performed in the [facility] laboratory located at [address] [place] [address].SARS-CoV-2/Flu/RSV Multiplex Test: Fact sheet for providers: https://www.fda.gov/media/898596/downloadFact sheet for patients: https://www.fda.gov/media/623785/download Reference Range: Not Detected Respiratory virus testing [...] [Moles/Vol] 0.7 mmol/L Normal 0.4 - 2.0 [facility] Comment on above: Result Comment: Ana puncture immediately after or during the administration of Metamizole may lead to falsely low results. Testing should be performed immediately prior to Metamizole dosing. Performed By: #### L ACT #### [address] [address] LIPASEon 08-15-2022 Lipase [Catalytic activity/Vol] 40 U/L Normal 9 - 82 [facility] Comment on above: Result Comment: Ana puncture immediately after or during the administration of Metamizole may lead to falsely low results. Testing should be performed immediately prior to Metamizole dosing. Y-kydpmt-c-benzoquinone imine (metabolite of Acetaminophen) will generate erroneously low results in samples for patients that have taken toxic doses of acetaminophen. Performed By: #### L IPAS #### [address] [address] Laboratory - Chemistry and C hemistry - challengeon 08-15-2022 Albumin BCP dye [Mass/Vol] 3.8 g/dL 3.4 - 5.0 [facility] Work Phone: ALP [Catalytic activity/Vol] 116 U/L 33 - 136 [facility] Work Phone: ALT With P-5'-P [Catalytic activity/Vol] 20 U/L 7 - 45 [facility] Work Phone: Comment on above: Patients treated wit h Sulfasalazine may generate falsely decreased results for ALT. Anion gap [Moles/Vol] 15 mmol/L 10 - 20 [facility] Work Phone: AST With P-5'-P [Catalytic activity/Vol] 15 U/L 9 - 39 [facility] Work Phone: Bilirubin [Mass/Vol] 0.5 mg/dL 0.0 - 1.2 [facility] Work Phone: Calcium [Mass/Vol] 8.5 mg/dL below low threshold 8.6 - 10.3 [facility] Work Phone: Chloride [Moles/Vol] 103 mmol/L 98 - 107 [facility] Work Phone: CO2 [Moles/Vol] 18 mmol/L below low threshold 21 - 32 [facility] Work Phone: Creatinine [Mass/Vol] 0.93 mg/dL See Below [facility] Work Phone: Comment on above: Reference Range: 0.5 0 - 1.05 Glucose [Mass/Vol] 131 mg/dL above high threshold 74 - 99 [facility] Work Phone: Potassium [Moles/Vol] 4.5 mmol/L 3.5 - 5.3 [facility] Work Phone: Protein [Mass/Vol] 7.5 g/dL 6.4 - 8.2 [facility] Work Phone: Sodium [Moles/Vol] 131 mmol/L below low threshold 136 - 145 [facility] Work Phone: Urea nitrogen [Mass/Vol] 19 mg/dL 6 - 23 [facility] Work Phone: Lactate, Levelon 08-15-2022 Lactate [Moles/Vol] 0.7 mmol/L 0.4 - 2.0 [facility] Work Phone: Comment on above: Venipuncture immedia tely after or during the administration of Metamizole may lead to falsely low results. Testing should be performed immediately prior to Metamizole dosing. Lipase, Serumon 08-15-2022 Lipase [Catalytic activity/Vol] 40 U/L 9 - 82 [facility] Work Phone: Comment on above: Venipuncture immedia tely after or during the administration of Metamizole may lead to falsely low results. Testing should be performed immediately prior to Metamizole dosing. Z-opirjy-r-benzoquinone imine (metabolite of Acetaminophen) will generate erroneously low results in samples for patients that have taken toxic doses of acetaminophen. No Panel Informationon 08-15 68 {mL/min/1.73m2} >90 [facility] Work Phone: Comment on above: CALCULATIONS OF PEYMAN MATED GFR ARE PERFORMED USING THE 2020 CKD-EPI STUDY REFIT EQUATION WITHOUT THE RACE VARIABLE FOR THE IDMS-TRACEABLE CREATININE METHODS.https://jasn.asnjournals.org/content/early/A SN.7120209948 Provider Note - ED v3on 07-21 Provider Note - ED v3 Provider Note: Chart Review: HISTORY OF PRESENTING ILLNESS ASIF is a 67 year old Female and was seen by me at 15-Aug-2022 12:34 for a chief complaint of weakness ([facility] transported Pt c/o N/V, diarrhea, weakness and general not feeling well. Pt was at [facility] 1.5 weeks ago with same and Ileus. Spent 4 night in hospital. states she was starting to feel better but N/V and weakness came back a few days ago. COVID And Flu test was negative at [facility]. Denies Abdominal pain, CP or SOB. 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 Triage Information: Most recent Vital Sign Value [...] Reaction: Itching Hives/Urticaria HEALTH HISTORY: Medical History Name:PA (myocardial infarction) Code:I21.9 Name:Diabetes Code:E11.9 Name:Depression Code:F32.A [...] Past Medical History Description:Anxiety/Depress ion Description:DM- Insulin Description:PA Description:HTN Description:Hyperlipidemia Description:Fibromyalgia Description:Gout Past Surgical History Description:Stents x3- [facility] Description:Hysterectomy CRITICAL CARE RESULTS: Recent Lab Results: I have reviewed these laboratory results: Troponin I, High Sensitivity Trending View [id number] 15:55:00 15-Aug-2022 14:01:00 Troponin I, High [id number] Complete Blood Count + Differential 15-Aug-2022 [...] Reference Range: STRAW,YELLOW Appearance, Urine CLEAR Specific [place], Urine 1.012 pH, Urine 5.0 Protein, Urine 100(2+) A Glucose, Urine NEGA (more content not included)... Normal [facility] Radiologyon 08-15-2022 XR Chest Single view Normal [facility] Work Phone: STOOL PATHOGEN PCR PANELon 0 08-15-2022 CAMPYLOBACTER GP. Canceled [facility] Comment on above: Order Comment: TEST STOOL PATHOGEN PCR PANEL WAS CANCELLED, 08/15/2022 18:51 nsr. Performed By: #### S TLPP #### [facility] [address] [place] [address] NOROVIRUS GI/GII Canceled [facility] Comment on above: Order Comment: TEST STOOL PATHOGEN PCR PANEL WAS CANCELLED, 08/15/2022 18:51 nsr. Performed By: #### S TLPP #### [facility] [address] [place] [address] ROTAVIRUS A Canceled [facility] Comment on above: Order Comment: TEST [...] panel. Performed By: #### S TLPP #### [facility] [address] [place] [id number] SALMONELLA SP. Canceled [facility] Comment on above: Order Comment: TEST STOOL PATHOGEN PCR PANEL WAS CANCELLED, 08/15/2022 18:51 nsr. Performed By: #### S TLPP #### [facility] [address] [place] [id number] SHIGA TOXIN 1 Canceled [facility] Comment on above: Order Comment: TEST STOOL PATHOGEN PCR PANEL WAS CANCELLED, 08/15/2022 18:51 nsr. Performed By: #### S TLPP #### [facility] [address] [place] [address] SHIGA TOXIN 2 Canceled [facility] Comment on above: Order Comment: TEST STOOL PATHOGEN PCR PANEL WAS CANCELLED, 08/15/2022 18:51 nsr. Performed By: #### S TLPP #### [facility] [address] [place] [address] SHIGELLA SP. Canceled [facility] Comment on above: Order Comment: TEST STOOL PATHOGEN PCR PANEL WAS CANCELLED, 08/15/2022 18:51 nsr. Performed By: #### S TLPP #### [facility] [address] [place] [id number] [employer] Canceled [facility] Comment on above: Order Comment: TEST STOOL PATHOGEN PCR PANEL WAS CANCELLED, 08/15/2022 18:51 nsr. Performed By: #### S TLPP #### [facility] [address] [place] [address] YERSINIA ENTEROCOLITICA Canceled Normal [facility] Comment on above: Order Comment: TEST STOOL PATHOGEN PCR PANEL WAS CANCELLED, 08/15/2022 18:51 nsr. Performed By: #### S TLPP #### [facility] [address] [place] [address] Lab Specimen Source Normal [facility] Comment on above: Order Comment: TEST STOOL PATHOGEN PCR PANEL WAS CANCELLED, 08/15/2022 18:51 nsr. Performed By: #### S TLPP #### [facility] [address] [place] [address] TROPONIN I, HIGH SENSITIVITY on 08-15-2022 TROPONIN I, HIGH SENSITIVITY 10 ng/L Normal 0 - 13 [facility] Comment on above: Result Comment: . Less [...] performed using a different testing methodology at [facility] than at other [facility]. Direct result comparisons should only be made within the same method. Performed By: #### U [facility] #### [place] [address] [place] [address] TROPONIN I, HIGH SENSITIVITY 9 ng/L Normal 0 - 13 [facility] Comment on above: Result Comment: . Less [...] performed using a different testing methodology at [facility] than at other [facility]. Direct result comparisons should only be made within the same method. Performed By: #### T [facility] #### [place] [address] Tropinin I.cardiac panel High sensitivity method 9 ng/L 0 - 13 [facility] Work Phone: Comment on above: .Less than [...] performed using a different testing methodology at [facility] Direct result comparisons should only be made within the same method. UA MICROSCOPICon 08-15-2022 RBC 3 /HPF Normal 0-5 [facility] Comment on above: Performed By: #### U AMIC #### [address] [address] SQUAMOUS EPITH. CELLS 3 /HPF Normal [facility] Comment on above: Performed By: #### U AMIC #### [address] [address] WBC (U) [#/Vol] /uL Normal 0-5 [facility] Comment on above: Performed By: #### U AMIC #### [address] [address] URINALYSIS WITH CULTURE IF I NDICATEDon 08-15-2022 Appearance (U) CLEAR Normal CLEAR [facility] Comment on above: Performed By: #### U ARFX #### [address] [address] Bilirubin Ql (U) Negative Normal NEGATIVE [facility] Comment on above: Performed By: #### U ARFX #### [place] [address] Color (U) Straw Normal STRAW,YELL OW [facility] Comment on above: Performed By: #### U ARFX #### [address] [address] Glucose Ql (U) Negative Normal NEGATIVE [facility] Comment on above: Performed By: #### U ARFX #### [place] [address] Hemoglobin Ql (U) MODERATE(2+) Abnormal NEGATIVE [facility] Comment on above: Performed By: #### U ARFX #### [place] [address] Ketones Ql (U) Negative Normal NEGATIVE [facility] Comment on above: Performed By: #### U ARFX #### [address] [address] Leukocyte esterase Test strip Ql (U) Negative Normal NEGATIVE [facility] Comment on above: Performed By: #### U ARFX #### [address] [address] Nitrite Ql (U) Negative Normal NEGATIVE [facility] Comment on above: Performed By: #### U ARFX #### [place] [id number] pH (U) 5.0 [pH] Normal 5.0 - 8.0 [facility] Comment on above: Performed By: #### U ARFX #### [place] [address] Protein Ql (U) 100(2+) Abnormal NEGATIVE [facility] Comment on above: Performed By: #### U ARFX #### [address] [address] Specific gravity (U) [Rel density] 1.012 Normal 1.005 - 1.035 [facility] Comment on above: Performed By: #### U ARFX #### [address] [address] Urobilinogen (U) [Mass/Vol] mg/dL Normal 0.0 - 1.9 [facility] Comment on above: Performed By: #### U ARFX #### [address] [address] Color (U) Straw See Below [facility] Work Phone: [phone] Comment on above: Reference Range: STR AW,YELLOW Glucose Ql (U) Negative NEGATIVE [facility] Work Phone: [phone] Ketones Ql (U) Negative NEGATIVE [facility] Work Phone: [phone] Leukocyte esterase Test strip Ql (U) Negative NEGATIVE [facility] Work Phone: [phone] pH (U) 5.0 [pH] 5.0 - 8.0 [facility] Work Phone: [phone] Protein (U) [Mass/Vol] 100(2+) [facility] [phone] RBC (U) [#/Vol] MODERATE(2+) Abnormal NEGATIVE [facility] Work Phone: [phone] Specific gravity (U) [Rel density] 1.012 1 See Below [facility] Work Phone: [phone] Comment on above: Reference Range: 1.0 05 - 1.035 URINALYSIS WITH CULTURE IF INDICATED Negative NEGATIVE [facility] Work Phone: [phone] URINALYSIS WITH CULTURE IF INDICATED <2.0 0.0 - 1.9 [facility] Work Phone: [phone] URINALYSIS WITH CULTURE IF INDICATED CLEAR CLEAR [facility] Work Phone: [phone] Urinalysis, Microscopicon Urinalysis, Microscopic 3 {/HPF} 0-5 [facility] Work Phone: Urinalysis, Microscopic <1 0-5 [facility] Work Phone: Absolute lymphocyte countOrd ered By: Dr. Buckley on 08-08-2022 Lymphocytes Auto (Unsp spec) [#/Vol] 0.80 10*3/uL 0.83-4.51 [facility] Basophil percentageOrdered B y: Dr. Buckley on 08-08-2022 Basophil percentage 112 mg/dL 74-106 [facility] Basophil percentage 135 mmol/L 136-145 [facility] Basophil percentage 3.3 mmol/L 3.5-5.1 [facility] Basophil percentage 102 mmol/L 98-107 [facility] Basophils (Bld) [#/Vol] 10.4 10*3/uL 4.4-11.0 [facility] Basophils (Bld) [#/Vol] 8.7 10*3/uL 2.0-7.7 [facility] Basophils/100 WBC (Bld) 0.3 % 0-1 [facility] Basophils/100 WBC (Bld) 83.5 % 47-70 [facility] Chloride [Moles/Vol] 102 mmol/L 98-107 [facility] Eosinophils/100 WBC (Bld) 0.3 % 0-5 [facility] Glucose [Mass/Vol] 112 mg/dL 74-106 [facility] Comment on above: Fasting Glucose resu lt from 100 to 125 mg/dL suggests IMPAIRED HOMEOSTASIS per A.D.A. criteria. Neutrophils (Bld) [#/Vol] 8.7 10*3/uL 2.0-7.7 [facility] Neutrophils/100 WBC (Bld) 83.5 % 47-70 [facility] Potassium [Moles/Vol] 3.3 mmol/L 3.5-5.1 [facility] Sodium [Moles/Vol] 135 mmol/L 136-145 [facility] WBC (Bld) [#/Vol] 10.4 10*3/uL 4.4-11.0 [facility] Blood erythrocytes count (nu mber/volume)Ordered By: Dr. Buckley on 08-08-2022 RBC (Bld) [#/Vol] 2.75 10*6/uL 4.2-5.4 [facility] Blood hemoglobin measurement (mass/volume)Ordered By: Dr. Buckley on 08-08-2022 Hemoglobin (Bld) [Mass/Vol] 8.2 g/dL 12.0-15.0 [facility] Blood lymphocytes/100 leukoc ytesOrdered By: Dr. Buckley on 08-08-2022 Lymphocytes/100 WBC (Bld) 7.7 % 19-41 [facility] Blood monocytes/100 leukocyt esOrdered By: Dr. Buckley on 08-08-2022 Monocytes/100 WBC (Bld) 7.2 % 0-10 [facility] Blood platelet mean volumeOr dered By: Dr. Buckley on 08-08-2022 Platelet mean volume (Bld) [Entitic vol] 9.4 fL 6.2-12.0 [facility] Determination of erythrocyte mean corpuscular volume (MCV)Ordered By: Dr. Buckley on 08-08-2022 MCV (RBC) [Entitic vol] 92.0 fL 81-99 [facility] Hematocrit Auto (Bld) [Volum e fraction]Ordered By: Dr. Buckley on 08-08-2022 Hematocrit (Bld) [Volume fraction] 25.3 % 37-47 [facility] Laboratory - Chemistry and C hemistry - challengeOrdered By: Dr. Buckley on 08-08-2022 CO2 [Moles/Vol] 26.0 mmol/L 21.0-32.0 [facility] Magnesium [Mass/Vol] 2.0 mg/dL 1.6-2.6 [facility] Urea nitrogen/Creatinine [Mass ratio] 11.9 mg/mg 10-20 [facility] Laboratory - Hematology and Cell countsOrdered By: Dr. Buckley on 08-08-2022 Erythrocyte distribution width (RBC) [Entitic vol] 53.2 fL 35.1-43.9 [facility] Erythrocyte distribution width (RBC) [Ratio] 15.9 % 11.6-14.6 [facility] Immature granulocytes/100 WBC (Bld) 1.000 % 0.0-0.9 [facility] Comment on above: IG% - Immature Granu locytes (promyelocytes, myelocytes and metamyelocytes) > 1% indicates that a LEFT SHIFT is Present. MCH (RBC) [Entitic mass] 29.8 pg 27.0-32.0 [facility] Nucleated RBC/100 WBC (Bld) [Ratio] 0 % 0-5 [facility] MCHC Auto (RBC) [Mass/Vol]Or dered By: Dr. Buckley on 08-08-2022 MCHC (RBC) [Mass/Vol] 32.4 g/dL 32-36 [facility] No Panel InformationOrdered By: Dr. Buckley on 08-08-2022 Estimated Creatinine Clearance Calc 49.29 ml/min [facility] Estimated GFR (MDRD) Amer 65 mL/min >60 [facility] Comment on above: GFR Calc Estimated GFR (MDRD) Non-Af Amer 53 mL/min >60 [facility] Comment on above: Non- GFR Calc 29.8 pg 27.0-32.0 [facility] 15.9 % 11.6-14.6 [facility] 53.2 fl 35.1-43.9 [facility] 1.000 % 0.0-0.9 [facility] 0 % 0-5 [facility] 53 mL/min >60 [facility] 65 mL/min >60 [facility] 49.29 ml/min [facility] 11.9 RATIO 10-20 [facility] 2.0 mg/dL 1.6-2.6 [facility] 26.0 mmol/L 21.0-32.0 [facility] Platelets bldOrdered By: Dr. Buckley on 08-08-2022 Platelets (Bld) [#/Vol] 296 10*3/uL 150-450 [facility] Serum or plasma calcium jamey urement (mass/volume)Ordered By: Dr. Buckley on 08-08-2022 Calcium [Mass/Vol] 7.9 mg/dL 8.5-10.1 [facility] Serum or plasma creatinine m easurement (mass/volume)Ordered By: Dr. Buckley on 08-08-2022 Creatinine [Mass/Vol] 1.09 mg/dL 0.55-1.02 [facility] Comment on above: The validity of the calculated GFR & GFRAA in patients over 70 years has not been determined. Clinical correlation is essential. Serum or plasma urea nitroge n measurement (mass/volume)Ordered By: Dr. Buckley on 08-08-2022 Urea nitrogen [Mass/Vol] 13 mg/dL 7-18 [facility] Thin prep Papanicolaou smear with manual screeningOrdered By: Dr. Buckley on 08-08-2022 Thin prep Papanicolaou smear with manual screening 7 5-15 [facility] Basophil percentageOrdered B y: Dr. Buckley on 08-07-2022 Basophil percentage 5.8 g/dL 6.4-8.2 [facility] Basophil percentage 0.30 mg/dL 0.20-1.00 [facility] Bilirubin [Mass/Vol] 0.30 mg/dL 0.20-1.00 [facility] Comment on above: For patients on eltr ombopag therapy, use of Dimension [place] TBIL is not recommended. Protein [Mass/Vol] 5.8 g/dL 6.4-8.2 [facility] Iron measurement (mass/mass) Ordered By: Dr. Buckley on 08-07-2022 Iron (Unsp spec) [Mass/Mass] 14 ug/dL 50-170 [facility] Laboratory - Chemistry and C hemistry - challengeOrdered By: Dr. Buckley on 08-07-2022 Cobalamin (Vitamin B12) [Mass/Vol] 330 pg/mL 211-911 [facility] ALP [Catalytic activity/Vol] 68 U/L 45-117 [facility] ALT [Catalytic activity/Vol] 14 U/L 13-56 [facility] Globulin (S) [Mass/Vol] 3.3 g/dL 2.2-4.2 [facility] No Panel InformationOrdered By: Dr. Buckley on 08-07-2022 Vitamin D 25-Hydroxy 16.8 ng/mL [facility] Comment on above: Vitamin D 25(OH) Sta tus Range Deficiency <20 ng/mL (50nmol/L) Insufficiency 20 - 30 ng/mL (50 - 75 nmol/L) Sufficiency 30 - 100 ng/mL (75 - 250 nmol/L) Toxicity >100 ng/mL (>250 nmol/L) 330 pg/mL 211-911 [facility] 16.8 ng/mL [facility] Thyroid Stimulating Hormone (TSH) 1.54 uIU/mL 0.358-3.74 [facility] Total Iron Binding Capacity 276 ug/dL 250-450 [facility] 3.3 g/dL 2.2-4.2 [facility] 68 U/L 45-117 [facility] 14 U/L 13-56 [facility] 1.54 uIU/mL 0.358-3.74 [facility] 276 ug/dL 250-450 [facility] Serum or plasma albumin jamey urement (mass/volume)Ordered By: Dr. Buckley on 08-07-2022 Albumin [Mass/Vol] 2.5 g/dL 3.2-5.0 [facility] Serum or plasma albumin/glob ulin mass ratioOrdered By: Dr. Buckley on 08-07-2022 Albumin/Globulin [Mass ratio] 0.8 {ratio} 0.9-2.4 [facility] Serum or plasma ferritin joshua surement (mass/volume)Ordered By: Dr. Buckley on 08-07-2022 Ferritin [Mass/Vol] 63 ng/mL 8-252 [facility] Serum or plasma iron saturat ion measurement (mass fraction)Ordered By: Dr. Buckley on 08-07-2022 Iron saturation [Mass fraction] 5.1 % 15.0-55.0 [facility] Thin prep Papanicolaou smear with manual screeningOrdered By: Dr. Buckley on 08-07-2022 Thin prep Papanicolaou smear with manual screening 14 U/L 15-37 [facility] Clostridium difficile detect ion by polymerase chain reactionOrdered By: Dr. Mg on 08-06-2022 C. difficile DNA JUAN+probe Ql (Unsp spec) [facility] EP PanelOrdered By: Dr. Vikki agee on 08-06-2022 Gastrointestinal pathogens panel JUAN+probe (Stl) [facility] Basophil percentageOrdered B y: Dr. Mg on 08-05-2022 Basophil percentage 173 mg/dL <200 [facility] Basophil percentage 320 mg/dL <199 [facility] Cholesterol [Mass/Vol] 173 mg/dL <200 [facility] Comment on above: <200 mg/dL Desirable 200-240 mg/dL Borderline >240 mg/dL High Risk Triglyceride [Mass/Vol] 320 mg/dL <199 [facility] Comment on above: The drugs N-Acetylcy steine and Metamizole may falsely depress this assay.Serum Triglycerides Reference Interval Normal <150 mg/dL Borderline high 150 - 199 mg/dL High 200 - 499 mg/dL Very High > or = 500 mg/dL Laboratory - Chemistry and C hemistry - challengeOrdered By: Dr. Alva on 08-05-2022 Lipase [Catalytic activity/Vol] 428 U/L 73-393 [facility] No Panel InformationOrdered By: Dr. Alva on 08-05-2022 428 U/L 73-393 [facility] Serum or plasma cholesterol in HDL measurement (mass/volume)Ordered By: Dr. Mg on 08-05-2022 Cholesterol in HDL [Mass/Vol] 46 mg/dL >40 [facility] Comment on above: The drugs N-Acetylcy steine and Metamizole may falsely depress this assay. Reference Range HDL <40 mg/dL Low HDL Cholesterol HDL >or= 60 mg/dL High HDL Cholesterol Serum or plasma cholesterol in VLDL measurement (mass/volume)Ordered By: Dr. Mg on 08-05-2022 Cholesterol in VLDL [Mass/Vol] 64 mg/dL 5-40 [facility] Serum or plasma low density lipoprotein (LDL) cholesterol measurement (mass/volume)Ordered By: Dr. Mg on 08-05-2022 Cholesterol in LDL [Mass/Vol] 63 mg/dL 0-130 [facility] Absolute lymphocyte countOrd ered By: Dr. Hernandez on 08-04-2022 Lymphocytes Auto (Unsp spec) [#/Vol] 1.51 10*3/uL 0.83-4.51 [facility] Basophil percentageOrdered B y: Dr. Hernandez on 08-04-2022 Basophils/100 WBC (Bld) 0.6 % 0-1 [facility] Bilirubin [Mass/Vol] 0.60 mg/dL 0.20-1.00 [facility] Comment on above: For patients on eltr ombopag therapy, use of Dimension [place] TBIL is not recommended. Chloride [Moles/Vol] 99 mmol/L 98-107 [facility] Eosinophils/100 WBC (Bld) 0.5 % 0-5 [facility] Glucose [Mass/Vol] 255 mg/dL 74-106 [facility] Comment on above: Glucose result great er than or equal to 200 mg/dLsuggests DIABETES MELLITUS per A.D.A. criteria. Neutrophils (Bld) [#/Vol] 11.8 10*3/uL 2.0-7.7 [facility] Neutrophils/100 WBC (Bld) 82.0 % 47-70 [facility] Potassium [Moles/Vol] 5.3 mmol/L 3.5-5.1 [facility] Protein [Mass/Vol] 8.1 g/dL 6.4-8.2 [facility] Sodium [Moles/Vol] 131 mmol/L 136-145 [facility] WBC (Bld) [#/Vol] 14.3 10*3/uL 4.4-11.0 [facility] Blood erythrocytes count (nu mber/volume)Ordered By: Dr. Hernandez on 08-04-2022 RBC (Bld) [#/Vol] 4.04 10*6/uL 4.2-5.4 [facility] Blood hemoglobin measurement (mass/volume)Ordered By: Dr. Hernandez on 08-04-2022 Hemoglobin (Bld) [Mass/Vol] 12.1 g/dL 12.0-15.0 [facility] Blood lymphocytes/100 leukoc ytesOrdered By: Dr. Hernandez on 08-04-2022 Lymphocytes/100 WBC (Bld) 10.5 % 19-41 [facility] Blood monocytes/100 leukocyt esOrdered By: Dr. Hernandez on 08-04-2022 Monocytes/100 WBC (Bld) 5.1 % 0-10 [facility] Blood platelet mean volumeOr dered By: Dr. Hernandez on 08-04-2022 Platelet mean volume (Bld) [Entitic vol] 9.3 fL 6.2-12.0 [facility] Determination of erythrocyte mean corpuscular volume (MCV)Ordered By: Dr. Hernandez on 08-04-2022 MCV (RBC) [Entitic vol] 92.6 fL 81-99 [facility] Hematocrit Auto (Bld) [Volum e fraction]Ordered By: Dr. Hernandez on 08-04-2022 Hematocrit (Bld) [Volume fraction] 37.4 % 37-47 [facility] Influenza virus A and B and SARS-CoV-2 (COVID-19) Ag panel - Upper respiratory specimOrdered By: Sanju Hernandez on 08-04-2022 SARS-CoV-2 (COVID-19) RNA JUAN+probe Ql (Resp) [facility] Influenza virus A and B and SARS-CoV-2 (COVID-19) Ag panel - Upper respiratory specimOrdered By: Dr. Hernandez on 08-04-2022 SARS-CoV-2 (COVID-19) RNA JUAN+probe Ql (Resp) [facility] Laboratory - Chemistry and C hemistry - challengeOrdered By: Dr. Hernandez on 08-04-2022 ALP [Catalytic activity/Vol] 103 U/L 45-117 [facility] ALT [Catalytic activity/Vol] 18 U/L 13-56 [facility] CO2 [Moles/Vol] 23.0 mmol/L 21.0-32.0 [facility] Globulin (S) [Mass/Vol] 4.4 g/dL 2.2-4.2 [facility] Lipase [Catalytic activity/Vol] 944 U/L 73-393 [facility] Urea nitrogen/Creatinine [Mass ratio] 20.6 mg/mg 10-20 [facility] Laboratory - Hematology and Cell countsOrdered By: Dr. Hernandez on 08-04-2022 Erythrocyte distribution width (RBC) [Entitic vol] 52.5 fL 35.1-43.9 [facility] Erythrocyte distribution width (RBC) [Ratio] 15.5 % 11.6-14.6 [facility] Immature granulocytes/100 WBC (Bld) 1.300 % 0.0-0.9 [facility] Comment on above: IG% - Immature Granu locytes (promyelocytes, myelocytes and metamyelocytes) > 1% indicates that a LEFT SHIFT is Present. MCH (RBC) [Entitic mass] 30.0 pg 27.0-32.0 [facility] Nucleated RBC/100 WBC (Bld) [Ratio] 0 % 0-5 [facility] [Mass/Vol]Or dered By: Dr. Hernandez on 08-04-2022 MCHC (RBC) [Mass/Vol] 32.4 g/dL 32-36 [facility] No Panel InformationOrdered By: Dr. Hernandez on 08-04-2022 Estimated Creatinine Clearance Calc 31.55 ml/min [facility] Estimated GFR (MDRD) Amer 37 mL/min >60 [facility] Comment on above: GFR Calc Estimated GFR (MDRD) Non-Af Amer 31 mL/min >60 [facility] Comment on above: Non- GFR Calc Platelets bldOrdered By: Dr. Hernandez on 08-04-2022 Platelets (Bld) [#/Vol] 555 10*3/uL 150-450 [facility] Serum or plasma albumin jamey urement (mass/volume)Ordered By: Dr. Hernandez on 08-04-2022 Albumin [Mass/Vol] 3.7 g/dL 3.2-5.0 [facility] Serum or plasma albumin/glob ulin mass ratioOrdered By: Dr. Hernandez on 08-04-2022 Albumin/Globulin [Mass ratio] 0.8 {ratio} 0.9-2.4 [facility] Serum or plasma calcium jamey urement (mass/volume)Ordered By: Dr. Hernandez on 08-04-2022 Calcium [Mass/Vol] 8.9 mg/dL 8.5-10.1 [facility] Serum or plasma creatinine m easurement (mass/volume)Ordered By: Dr. Hernandez on 08-04-2022 Creatinine [Mass/Vol] 1.75 mg/dL 0.55-1.02 [facility] Comment on above: The validity of the calculated GFR & GFRAA in patients over 70 years has not been determined. Clinical correlation is essential. Serum or plasma urea nitroge n measurement (mass/volume)Ordered By: Dr. Hernandez on 08-04-2022 Urea nitrogen [Mass/Vol] 36 mg/dL 7-18 [facility] Thin prep Papanicolaou smear with manual screeningOrdered By: Dr. Hernandez on 08-04-2022 Thin prep Papanicolaou smear with manual screening 10 U/L 15-37 [facility] Thin prep Papanicolaou smear with manual screening 9 5-15 [facility] Absolute lymphocyte countOrd ered By: Dr. Kirkpatrick on 07-20-2022 Lymphocytes Auto (Unsp spec) [#/Vol] 2.19 10*3/uL 0.83-4.51 [facility] Basophil percentageOrdered B y: Dr. Kirkpatrick on 07-20-2022 Basophil percentage 136 mg/dL 74-106 [facility] Basophil percentage 135 mmol/L 136-145 [facility] Basophil percentage 4.3 mmol/L 3.5-5.1 [facility] Basophil percentage 98 mmol/L 98-107 [facility] Basophils (Bld) [#/Vol] 9.6 10*3/uL 4.4-11.0 [facility] Basophils (Bld) [#/Vol] 6.4 10*3/uL 2.0-7.7 [facility] Basophils/100 WBC (Bld) 0.7 % 0-1 [facility] Basophils/100 WBC (Bld) 66.3 % 47-70 [facility] Basophils/100 WBC (Bld) 1.8 % 0-5 [facility] Chloride [Moles/Vol] 98 mmol/L 98-107 [facility] Eosinophils/100 WBC (Bld) 1.8 % 0-5 [facility] Glucose [Mass/Vol] 136 mg/dL 74-106 [facility] Comment on above: Fasting Glucose resu lt greater than or equal to 126 mg/dL suggests DIABETES MELLITUS per A.D.A. criteria. Neutrophils (Bld) [#/Vol] 6.4 10*3/uL 2.0-7.7 [facility] Neutrophils/100 WBC (Bld) 66.3 % 47-70 [facility] Potassium [Moles/Vol] 4.3 mmol/L 3.5-5.1 [facility] Sodium [Moles/Vol] 135 mmol/L 136-145 [facility] WBC (Bld) [#/Vol] 9.6 10*3/uL 4.4-11.0 [facility] Blood erythrocytes count (nu mber/volume)Ordered By: Dr. Kirkpatrick on 07-20-2022 RBC (Bld) [#/Vol] 4.01 10*6/uL 4.2-5.4 [facility] Blood hemoglobin measurement (mass/volume)Ordered By: Dr. Kirkpatrick on 07-20-2022 Hemoglobin (Bld) [Mass/Vol] 12.2 g/dL 12.0-15.0 [facility] Blood lymphocytes/100 leukoc ytesOrdered By: Dr. Kirkpatrick on 07-20-2022 Lymphocytes/100 WBC (Bld) 22.9 % 19-41 [facility] Blood monocytes/100 leukocyt esOrdered By: Dr. Kirkpatrick on 07-20-2022 Monocytes/100 WBC (Bld) 7.6 % 0-10 [facility] Blood platelet mean volumeOr dered By: Dr. Kirkpatrick on 07-20-2022 Platelet mean volume (Bld) [Entitic vol] 9.5 fL 6.2-12.0 [facility] Determination of erythrocyte mean corpuscular volume (MCV)Ordered By: Dr. Kirkpatrick on 07-20-2022 MCV (RBC) [Entitic vol] 90.5 fL 81-99 [facility] Hematocrit Auto (Bld) [Volum e fraction]Ordered By: Dr. Kirkpatrick on 07-20-2022 Hematocrit (Bld) [Volume fraction] 36.3 % 37-47 [facility] Laboratory - Chemistry and C hemistry - challengeOrdered By: Dr. Kirkpatrick on 07-20-2022 CO2 [Moles/Vol] 27.0 mmol/L 21.0-32.0 [facility] Urea nitrogen/Creatinine [Mass ratio] 17.6 mg/mg 10-20 [facility] Laboratory - Hematology and Cell countsOrdered By: Dr. Kirkpatrick on 07-20-2022 Erythrocyte distribution width (RBC) [Entitic vol] 49.1 fL 35.1-43.9 [facility] Erythrocyte distribution width (RBC) [Ratio] 15.0 % 11.6-14.6 [facility] Immature granulocytes/100 WBC (Bld) 0.700 % 0.0-0.9 [facility] Comment on above: IG% - Immature Granu locytes (promyelocytes, myelocytes and metamyelocytes) > 1% indicates that a LEFT SHIFT is Present. MCH (RBC) [Entitic mass] 30.4 pg 27.0-32.0 [facility] Nucleated RBC/100 WBC (Bld) [Ratio] 0 % 0-5 [facility] MCHC Auto (RBC) [Mass/Vol]Or dered By: Dr. Kirkpatrick on 07-20-2022 MCHC (RBC) [Mass/Vol] 33.6 g/dL 32-36 [facility] No Panel InformationOrdered By: Dr. Kirkpatrick on 07-20-2022 Estimated Creatinine Clearance Calc 41.53 ml/min [facility] Estimated GFR (MDRD) Amer 55 mL/min >60 [facility] Comment on above: GFR Calc Estimated GFR (MDRD) Non-Af Amer 46 mL/min >60 [facility] Comment on above: Non- GFR Calc 30.4 pg 27.0-32.0 [facility] 15.0 % 11.6-14.6 [facility] 49.1 fl 35.1-43.9 [facility] 0.700 % 0.0-0.9 [facility] 0 % 0-5 [facility] 46 mL/min >60 [facility] 55 mL/min >60 [facility] 41.53 ml/min [facility] 17.6 RATIO 10-20 [facility] 27.0 mmol/L 21.0-32.0 [facility] Platelets bldOrdered By: Dr. Kirkpatrick on 07-20-2022 Platelets (Bld) [#/Vol] 390 10*3/uL 150-450 [facility] Serum or plasma calcium jamey urement (mass/volume)Ordered By: Dr. Kirkpatrick on 07-20-2022 Calcium [Mass/Vol] 9.3 mg/dL 8.5-10.1 [facility] Serum or plasma creatinine m easurement (mass/volume)Ordered By: Dr. Kirkpatrick on 07-20-2022 Creatinine [Mass/Vol] 1.25 mg/dL 0.55-1.02 [facility] Comment on above: The validity of the calculated GFR & GFRAA in patients over 70 years has not been determined. Clinical correlation is essential. Serum or plasma urea nitroge n measurement (mass/volume)Ordered By: Dr. Kirkpatrick on 07-20-2022 Urea nitrogen [Mass/Vol] 22 mg/dL 7-18 [facility] Thin prep Papanicolaou smear with manual screeningOrdered By: Dr. Kirkpatrick on 07-20-2022 Thin prep Papanicolaou smear with manual screening 10 5-15 [facility] Basophil percentageOrdered B y: Dr. Marie on 04-20-2022 Basophil percentage 3.5 mg/dL 2.5-4.9 [facility] Chloride [Moles/Vol] 100 mmol/L 98-107 [facility] Glucose [Mass/Vol] 153 mg/dL 74-106 [facility] Comment on above: Fasting Glucose resu lt greater than or equal to 126 mg/dL suggests DIABETES MELLITUS per A.D.A. criteria. Potassium [Moles/Vol] 3.9 mmol/L 3.5-5.1 [facility] Sodium [Moles/Vol] 136 mmol/L 136-145 [facility] Laboratory - Chemistry and C hemistry - challengeOrdered By: Dr. Marie on 04-20-2022 CO2 [Moles/Vol] 27.0 mmol/L 21.0-32.0 [facility] Urea nitrogen/Creatinine [Mass ratio] 18.1 mg/mg 10-20 [facility] No Panel InformationOrdered By: Dr. Marie on 04-20-2022 Estimated GFR (MDRD) Amer 60 mL/min >60 [facility] Comment on above: GFR Calc Estimated GFR (MDRD) Non-Af Amer 50 mL/min >60 [facility] Comment on above: Non- GFR [...] on 04-20-2022 Creatinine [Mass/Vol] 1.16 mg/dL 0.55-1.02 [facility] Comment on above: The validity of the calculated GFR & GFRAA in patients over 70 years has not been determined. Clinical correlation is essential. Serum or plasma urea nitroge n measurement (mass/volume)Ordered By: Dr. Marie on 04-20-2022 Urea nitrogen [Mass/Vol] 21 mg/dL 7-18 [facility] Urine creatinine measurement (mass/volume)Ordered By: Dr. Marie on 04-20-2022 Creatinine (U) [Mass/Vol] 63.20 mg/dL NO RANGE EST. [facility] Urine protein measurement (m ass/volume)Ordered By: Dr. Marie on 04-20-2022 Protein (U) [Mass/Vol] 11.9 mg/dL 0.0-11.8 [facility] Urine protein/creatinine mas s ratioOrdered By: Dr. Marie on 04-20-2022 Protein/Creatinine (U) [Mass ratio] 188 mg/g CRE 0-200 [facility] Colonoscopyon 03-16-2022 Colonoscopy PATIENTNAME Patient Name: Asif Dela Cruz EXAMDATE Procedure Date: 03/16/2022 2:05 PM PATIENTID PATIENTACCOUNTNUM PATIENTDOB Date of : 1955 ADMITTYPE Admit Type: Outpatient PATIENTROOM Site: [place] [address] ETHNICITY Ethnicity: Not or RACE Race: White PROVDR Attending MD: Servando Clay DO, [id number] ENDOPROCEDURENAME Procedure: Colonoscopy INDICATION Indications: Clinically significant [...] scheduled. CPT_CODES Procedure Code(s): --- Professional --- 66533, Colonoscopy, flexible; with biopsy, single or multiple G0500, Moderate sedation services provided by the same physician or other qualified health healthcare specialist performing a gastrointestinal endoscopic service that sedation supports, requiring the presence of an independent trained observer to assist in the monitoring of the patient's level of consciousness and physiological status; initial 15 minutes of intra-service time; patient age 5 years or older (additional time may be reported with 991 (more content not included)... Normal [facility] GLUCOSE-POCTon 03-16-2022 Glucose [Mass/Vol] 114 mg/dL High 74 - 99 [facility] Comment on above: Performed By: #### G RAJENDRA #### [facility] [address] [place] [address] Laboratory - Chemistry and C hemistry - challengeon 03-16-2022 Glucose [Mass/Vol] 114 mg/dL above high threshold 74 - 99 [facility] Work Phone: No Panel Informationon 03-16 [facility] Work Phone: [email or web address]} [facility] Work Phone: [facility] Surgical Pathology Depar tmenton 03-16-2022 [facility] Surgical Pathology Department Name ASIF DELA CRUZ Pathologist: TWILA LEMA MD Date of Procedure: 03/16/2022 Date Received: 03/16/2022 Date Reported 03/26/2022 Submitting Physician: SERVANDO CLAY DO Location: [facility] Copy To/Referring/Attending: Pt States No PCP Other External # FINAL DIAGNOSIS A. COLON, RANDOM: -- COLONIC MUCOSA WITH NO SIGNIFICANT PATHOLOGIC FINDINGS. -- NEGATIVE FOR MICROSCOPIC COLITIS. Electronically Signed Out By TWILA LEMA MD/MARCELA By the signature on this report, the individual or group listed as making the Final Interpretation/Diagnosis certifies that they have reviewed this case. Diagnostic interpretation performed at [address] [place] [address] Clinical History: Physician Contact Number: [id number] Fixative (A): Formalin Clinical Diagnosis History diarrhea Specimens Submitted As: A: RANDOM COLON Gross Description: Received in formalin, labeled with the patient's name and hospital number and random colon, are multiple fragments of mahmood, soft tissue aggregating to 1.8 x 0.2 x 0.2 cm. The specimen is submitted in toto in one cassette. JW jwh/03/17/2022 [facility] Department of Pathology [address] [place] [address] Normal [facility] Comment on above: Performed By: #### U [facility] #### [facility] Surgical Pathology Department [address] [place] [address] Established Visit (Gastroent erology)on 02-17-2022 Established Visit (Gastroenterology) Diagnoses/Problems Assessed Acute left lower quadrant pain (789.04,338.19) (R10.32) Orders Acute left lower quadrant pain Colonoscopy Diagnostic; Status:Hold For - Scheduling; Requested for:17Feb2022; Perform:[facility]; Due:[id number];Ordered; For:Acute left lower quadrant pain; Ordered By:Servando [...] states stools are dark. Patient states her Legal Biller wated her to ask about Ozempic with her bowel issues. History of Present IllnessChris is seen today in follow-up. She is [...] TABLET RENAN (more content not included)... Normal [facility] Basophil percentageon 2021 Bilirubin [Mass/Vol] 0.40 mg/dL 0.20-1.00 [facility] Work Phone: Comment on above: For patients on eltr ombopag therapy, use of Dimension Samaria TBIL is not recommended. Chloride [Moles/Vol] 102 mmol/L 98-107 [facility] Work Phone: Glucose [Mass/Vol] 135 mg/dL 74-106 [facility] Work Phone: Comment on above: Fasting Glucose resu lt greater than or equal to 126 mg/dL suggests DIABETES MELLITUS per A.D.A. criteria. Potassium [Moles/Vol] 4.2 mmol/L 3.5-5.1 [facility] Work Phone: Protein [Mass/Vol] 7.7 g/dL 6.4-8.2 [facility] Work Phone: Sodium [Moles/Vol] 139 mmol/L 136-145 [facility] Work Phone: Laboratory - Chemistry and C hemistry - challengeon 02-07-2022 ALP [Catalytic activity/Vol] 86 U/L 45-117 [facility] Work Phone: ALT [Catalytic activity/Vol] 18 U/L 13-56 [facility] Work Phone: CO2 [Moles/Vol] 28.0 mmol/L 21.0-32.0 [facility] Work Phone: [phone] Free T4 [Mass/Vol] 1.22 ng/dL 0.76-1.46 [facility] Work Phone: Globulin (S) [Mass/Vol] 3.9 g/dL 2.2-4.2 [facility] Work Phone: Urea nitrogen/Creatinine [Mass ratio] 20.0 mg/mg 10-20 [facility] Work Phone: Laboratory - Hematology and Cell countson 02-07-2022 HbA1c (Bld) [Mass fraction] 7.0 % [facility] Work Phone: No Panel Informationon 02-07 Estimated GFR (MDRD) Amer 64 mL/min >60 [facility] Work Phone: Comment on above: GFR Calc Estimated GFR (MDRD) Non-Af Amer 53 mL/min >60 [facility] Work Phone: Comment on above: Non- GFR Calc Thyroid Stimulating Hormone (TSH) 1.74 uIU/mL 0.358-3.74 [facility] Work Phone: Serum or plasma albumin jamey urement (mass/volume)on 02-07-2022 Albumin [Mass/Vol] 3.8 g/dL 3.2-5.0 [facility] Work Phone: Serum or plasma albumin/glob ulin mass ratioon 02-07-2022 Albumin/Globulin [Mass ratio] 1.0 {ratio} 0.9-2.4 [facility] Work Phone: Serum or plasma calcium jamey urement (mass/volume)on 02-07-2022 Calcium [Mass/Vol] 9.0 mg/dL 8.5-10.1 [facility] Work Phone: Serum or plasma creatinine m easurement (mass/volume)on 02-07-2022 Creatinine [Mass/Vol] 1.10 mg/dL 0.55-1.02 [facility] Work Phone: Comment on above: The validity of the calculated GFR & GFRAA in patients over 70 years has not been determined. Clinical correlation is essential. Serum or plasma urea nitroge n measurement (mass/volume)on 02-07-2022 Urea nitrogen [Mass/Vol] 22 mg/dL 7-18 [facility] Work Phone: Thin prep Papanicolaou smear with manual screeningon 02-07-2022 Thin prep Papanicolaou smear with manual screening 11 U/L 15-37 [facility] Work Phone: Thin prep Papanicolaou smear with manual screening 9 5-15 [facility] Work Phone: Basophil percentageon 2021 Bilirubin [Mass/Vol] 0.40 mg/dL 0.20-1.00 [facility] Work Phone: Comment on above: For patients on eltr ombopag therapy, use of Dimension Samaria TBIL is not recommended. Cholesterol [Mass/Vol] 205 mg/dL <200 [facility] Work Phone: Comment on above: <200 mg/dL Desirable 200-240 mg/dL Borderline >240 mg/dL High Risk Protein [Mass/Vol] 7.3 g/dL 6.4-8.2 [facility] Work Phone: Triglyceride [Mass/Vol] 208 mg/dL <199 [facility] Work Phone: Comment on above: The drugs N-Acetylcy steine and Metamizole may falsely depress this assay.Serum Triglycerides Reference Interval Normal <150 mg/dL Borderline high 150 - 199 mg/dL High 200 - 499 mg/dL Very High > or = 500 mg/dL Direct bilirubinon 2 Bilirubin.direct [Mass/Vol] 0.09 mg/dL 0.00-0.30 [facility] Work Phone: Laboratory - Chemistry and C hemistry - challengeon 01-14-2022 ALP [Catalytic activity/Vol] 86 U/L 45-117 [facility] Work Phone: ALT [Catalytic activity/Vol] 18 U/L 13-56 [facility] Work Phone: Globulin (S) [Mass/Vol] 3.6 g/dL 2.2-4.2 [facility] Work Phone: Serum or plasma albumin jamey urement (mass/volume)on 01-14-2022 Albumin [Mass/Vol] 3.7 g/dL 3.2-5.0 [facility] Work Phone: Serum or plasma cholesterol in HDL measurement (mass/volume)on 01-14-2022 Cholesterol in HDL [Mass/Vol] 54 mg/dL >40 [facility] Work Phone: Comment on above: The drugs N-Acetylcy steine and Metamizole may falsely depress this assay. Reference Range HDL <40 mg/dL Low HDL Cholesterol HDL >or= 60 mg/dL High HDL Cholesterol Serum or plasma cholesterol in VLDL measurement (mass/volume)on 01-14-2022 Cholesterol in VLDL [Mass/Vol] 42 mg/dL 5-40 [facility] Work Phone: Serum or plasma low density lipoprotein (LDL) cholesterol measurement (mass/volume)on 01-14-2022 Cholesterol in LDL [Mass/Vol] 109 mg/dL 0-130 [facility] Work Phone: Thin prep Papanicolaou smear with manual screeningon 01-14-2022 Thin prep Papanicolaou smear with manual screening 8 U/L 15-37 [facility] Work Phone: Established Visit (Gastroent erology)on 01-06-2022 Established Visit (Gastroenterology) Diagnoses/Problems Assessed IBS (irritable bowel syndrome) (564.1) (K58.9) Orders IBS (irritable bowel syndrome) Start: Sucralfate 1 GM Oral Tablet; TAKE 1 TABLET EVERY 12 HOURS DAILY Rx By: Servando Clay; Dispense: 30 Days ; #:60 Tablet; Refill: 5;For: IBS (irritable bowel syndrome); [place] = N; Verified Transmission to [facility]; Last Updated By: [employer]; 01/06/2022 1:59:11 PM Provider Impressions I informed Asif that her symptoms were likely a low-grade [...] Adult Risk Screening Initial Fall Risk Screening: ASIF has not fallen in the last 6 months. ASIF has a fear of falling. She does [...] seen today in follow-up. She was at [facility] late October with 5-day history of [...] was in 2018. CT scan reviewed from [facility] revealed small bowel loops with fluid [...] (493.90) (J45.2 (more content not included)... Normal [facility] - Microbiology an d Antimicrobial susceptibilityon 12-10-2021 SARS-CoV-2 (COVID-19) RNA JUAN+probe Ql (Unsp spec) Not detected Not Detect [facility] Work Phone: Comment on above: Normal Reference Ran ge: Not DetectedMethod:(RT-PCR) real-time reverse transcriptase PCRLuminex LILLY Instrument*The Food and Drug Administration (FDA) has issued an Emergency Use Authorization (EAU) for the LILLY SARS-CoV-2 Assay for the rapid detection of the virus that causes COVID-19. This test has been validated, but the FDAs independent review of this validation is pending.*Negative [...] Auto (Unsp spec) [#/Vol] 1.67 10*3/uL 0.83-4.51 [facility] Work Phone: Basophil percentageon 2021 Basophils/100 WBC (Bld) 0.4 % 0-1 [facility] Work Phone: Bilirubin [Mass/Vol] 0.40 mg/dL 0.20-1.00 [facility] Work Phone: Comment on above: For patients on eltr ombopag therapy, use of Dimension Samaria TBIL is not recommended. Chloride [Moles/Vol] 95 mmol/L 98-107 [facility] Work Phone: Eosinophils/100 WBC (Bld) 1.4 % 0-5 [facility] Work Phone: Glucose [Mass/Vol] 150 mg/dL 74-106 [facility] Work Phone: Comment on above: Fasting Glucose resu lt greater than or equal to 126 mg/dL suggests DIABETES MELLITUS per A.D.A. criteria. Neutrophils (Bld) [#/Vol] 8.9 10*3/uL 2.0-7.7 [facility] Work Phone: Neutrophils/100 WBC (Bld) 77.2 % 47-70 [facility] Work Phone: Potassium [Moles/Vol] 3.7 mmol/L 3.5-5.1 [facility] Work Phone: Protein [Mass/Vol] 8.4 g/dL 6.4-8.2 [facility] Work Phone: Sodium [Moles/Vol] 130 mmol/L 136-145 [facility] Work Phone: [phone] WBC (Bld) [#/Vol] 11.5 10*3/uL 4.4-11.0 [facility] Work Phone: Blood erythrocytes count (nu mber/volume)on 11-16-2021 RBC (Bld) [#/Vol] 4.19 10*6/uL 4.2-5.4 [facility] Work Phone: Blood hemoglobin measurement (mass/volume)on 11-16-2021 Hemoglobin (Bld) [Mass/Vol] 12.7 g/dL 12.0-15.0 [facility] Work Phone: Blood lymphocytes/100 leukoc yteson 11-16-2021 Lymphocytes/100 WBC (Bld) 14.5 % 19-41 [facility] Work Phone: Blood monocytes/100 leukocyt eson 11-16-2021 Monocytes/100 WBC (Bld) 5.7 % 0-10 [facility] Work Phone: Blood platelet mean volumeon 11-16-2021 Platelet mean volume (Bld) [Entitic vol] 9.4 fL 6.2-12.0 [facility] Work Phone: Determination of erythrocyte mean corpuscular volume (MCV)on 11-16-2021 MCV (RBC) [Entitic vol] 93.3 fL 81-99 [facility] Work Phone: Hematocrit Auto (Bld) [Volum e fraction]on 11-16-2021 Hematocrit (Bld) [Volume fraction] 39.1 % 37-47 [facility] Work Phone: Laboratory - Chemistry and C hemistry - challengeon 11-16-2021 ALP [Catalytic activity/Vol] 94 U/L 45-117 [facility] Work Phone: ALT [Catalytic activity/Vol] 19 U/L 13-56 [facility] Work Phone: CO2 [Moles/Vol] 24.0 mmol/L 21.0-32.0 [facility] Work Phone: Globulin (S) [Mass/Vol] 4.4 g/dL 2.2-4.2 [facility] Work Phone: Lipase [Catalytic activity/Vol] 77 U/L 73-393 [facility] Work Phone: Magnesium [Mass/Vol] 2.0 mg/dL 1.6-2.6 [facility] Work Phone: Urea nitrogen/Creatinine [Mass ratio] 31.3 mg/mg 10-20 [facility] Work Phone: Laboratory - Hematology and Cell countson 11-16-2021 Erythrocyte distribution width (RBC) [Entitic vol] 48.6 fL 35.1-43.9 [facility] Work Phone: [phone] Erythrocyte distribution width (RBC) [Ratio] 14.3 % 11.6-14.6 [facility] Work Phone: Immature granulocytes/100 WBC (Bld) 0.800 % 0.0-0.9 [facility] Work Phone: Comment on above: IG% - Immature Granu locytes (promyelocytes, myelocytes and metamyelocytes) > 1% indicates that a LEFT SHIFT is Present. MCH (RBC) [Entitic mass] 30.3 pg 27.0-32.0 [facility] Work Phone: Nucleated RBC/100 WBC (Bld) [Ratio] 0 % 0-5 [facility] Work Phone: MCHC Auto (RBC) [Mass/Vol]on 11-16-2021 MCHC (RBC) [Mass/Vol] 32.5 g/dL 32-36 [facility] Work Phone: No Panel Informationon 11-16 Estimated Creatinine Clearance Calc 27.82 ml/min [facility] Work Phone: Estimated GFR (MDRD) Amer 37 mL/min >60 [facility] Work Phone: Comment on above: GFR Calc Estimated GFR (MDRD) Non-Af Amer 30 mL/min >60 [facility] Work Phone: Comment on above: Non- GFR Calc Platelets bldon 11-16-2021 Platelets (Bld) [#/Vol] 512 10*3/uL 150-450 [facility] Work Phone: Serum or plasma albumin jamey urement (mass/volume)on 11-16-2021 Albumin [Mass/Vol] 4.0 g/dL 3.2-5.0 [facility] Work Phone: Serum or plasma albumin/glob ulin mass ratioon 11-16-2021 Albumin/Globulin [Mass ratio] 0.9 {ratio} 0.9-2.4 [facility] Work Phone: Serum or plasma calcium jamey urement (mass/volume)on 11-16-2021 Calcium [Mass/Vol] 8.9 mg/dL 8.5-10.1 [facility] Work Phone: Serum or plasma creatinine m easurement (mass/volume)on 11-16-2021 Creatinine [Mass/Vol] 1.79 mg/dL 0.55-1.02 [facility] Work Phone: Comment on above: The validity of the calculated GFR & GFRAA in patients over 70 years has not been determined. Clinical correlation is essential. Serum or plasma urea nitroge n measurement (mass/volume)on 11-16-2021 Urea nitrogen [Mass/Vol] 56 mg/dL 7-18 [facility] Work Phone: Thin prep Papanicolaou smear with manual screeningon 11-16-2021 Thin prep Papanicolaou smear with manual screening 11 U/L 15-37 [facility] Work Phone: Thin prep Papanicolaou smear with manual screening 11 5-15 [facility] Work Phone: Absolute lymphocyte counton 11-10-2021 Lymphocytes Auto (Unsp spec) [#/Vol] 2.13 10*3/uL 0.83-4.51 [facility] Work Phone: Basophil percentageon 2021 Basophils/100 WBC (Bld) 0.5 % 0-1 [facility] Work Phone: Bilirubin [Mass/Vol] 0.20 mg/dL 0.20-1.00 [facility] Work Phone: Comment on above: For patients on eltr ombopag therapy, use of Dimension Samaria TBIL is not recommended. Chloride [Moles/Vol] 110 mmol/L 98-107 [facility] Work Phone: Eosinophils/100 WBC (Bld) 1.5 % 0-5 [facility] Work Phone: Glucose [Mass/Vol] 149 mg/dL 74-106 [facility] Work Phone: Comment on above: Fasting Glucose resu lt greater than or equal to 126 mg/dL suggests DIABETES MELLITUS per A.D.A. criteria. Neutrophils (Bld) [#/Vol] 3.6 10*3/uL 2.0-7.7 [facility] Work Phone: Neutrophils/100 WBC (Bld) 55.5 % 47-70 [facility] Work Phone: Potassium [Moles/Vol] 3.7 mmol/L 3.5-5.1 [facility] Work Phone: Protein [Mass/Vol] 5.7 g/dL 6.4-8.2 [facility] Work Phone: Sodium [Moles/Vol] 140 mmol/L 136-145 [facility] Work Phone: WBC (Bld) [#/Vol] 6.5 10*3/uL 4.4-11.0 [facility] Work Phone: Blood erythrocytes count (nu mber/volume)on 11-10-2021 RBC (Bld) [#/Vol] 2.77 10*6/uL 4.2-5.4 [facility] Work Phone: Blood hemoglobin measurement (mass/volume)on 11-10-2021 Hemoglobin (Bld) [Mass/Vol] 8.6 g/dL 12.0-15.0 [facility] Work Phone: Blood lymphocytes/100 leukoc yteson 11-10-2021 Lymphocytes/100 WBC (Bld) 32.9 % 19-41 [facility] Work Phone: Blood monocytes/100 leukocyt eson 11-10-2021 Monocytes/100 WBC (Bld) 9.3 % 0-10 [facility] Work Phone: Blood platelet mean volumeon 11-10-2021 Platelet mean volume (Bld) [Entitic vol] 9.2 fL 6.2-12.0 [facility] Work Phone: Determination of erythrocyte mean corpuscular volume (MCV)on 11-10-2021 MCV (RBC) [Entitic vol] 94.6 fL 81-99 [facility] Work Phone: Glucose Glucometer (BldC) [M ass/Vol]on 11-10-2021 Glucose [Mass/Vol] 151 mg/dL 74-106 [facility] Work Phone: Comment on above: MANAGEMENT OF PATIEN T CARE PER NURSING PROTOCOL Hematocrit Auto (Bld) [Volum e fraction]on 11-10-2021 Hematocrit (Bld) [Volume fraction] 26.2 % 37-47 [facility] Work Phone: Hemoglobin in reticulocytes (mass per reticulocyte)on 11-10-2021 Hemoglobin (Reticulocytes) [Entitic mass] 34.0 pg 30-35 [facility] Work Phone: Iron measurement (mass/mass) on 11-10-2021 Iron (Unsp spec) [Mass/Mass] 28 ug/dL 50-170 [facility] Work Phone: Laboratory - Chemistry and C hemistry - challengeon 11-10-2021 ALP [Catalytic activity/Vol] 69 U/L 45-117 [facility] Work Phone: [phone] ALT [Catalytic activity/Vol] 16 U/L 13-56 [facility] Work Phone: CO2 [Moles/Vol] 23.0 mmol/L 21.0-32.0 [facility] Work Phone: Globulin (S) [Mass/Vol] 2.9 g/dL 2.2-4.2 [facility] Work Phone: Magnesium [Mass/Vol] 1.7 mg/dL 1.6-2.6 [facility] Work Phone: [phone] Urea nitrogen/Creatinine [Mass ratio] 16.5 mg/mg 10-20 [facility] Work Phone: Laboratory - Hematology and Cell countson 11-10-2021 Erythrocyte distribution width (RBC) [Entitic vol] 49.7 fL 35.1-43.9 [facility] Work Phone: [phone] Erythrocyte distribution width (RBC) [Ratio] 14.4 % 11.6-14.6 [facility] Work Phone: [phone] Immature granulocytes/100 WBC (Bld) 0.300 % 0.0-0.9 [facility] Work Phone: Comment on above: IG% - Immature Granu locytes (promyelocytes, myelocytes and metamyelocytes) > 1% indicates that a LEFT SHIFT is Present. MCH (RBC) [Entitic mass] 31.0 pg 27.0-32.0 [facility] Work Phone: [phone] Nucleated RBC/100 WBC (Bld) [Ratio] 0 % 0-5 [facility] Work Phone: MCHC Auto (RBC) [Mass/Vol]on 11-10-2021 MCHC (RBC) [Mass/Vol] 32.8 g/dL 32-36 [facility] Work Phone: No Panel Informationon 11-10 Estimated Creatinine Clearance Calc 62.65 ml/min [facility] Work Phone: Estimated GFR (MDRD) Amer 94 mL/min >60 [facility] Work Phone: Comment on above: GFR Calc Estimated GFR (MDRD) Non-Af Amer 78 mL/min >60 [facility] Work Phone: Comment on above: Non- GFR Calc Immature Reticulocyte Fraction 12.60 % 3.00-15.90 [facility] Work Phone: Reticulocyte Count 1.92 % 0.5-1.5 [facility] Work Phone: Total Iron Binding Capacity 308 ug/dL 250-450 [facility] Work Phone: Platelets bldon 11-10-2021 Platelets (Bld) [#/Vol] 307 10*3/uL 150-450 [facility] Work Phone: Serum or plasma albumin jamey urement (mass/volume)on 11-10-2021 Albumin [Mass/Vol] 2.8 g/dL 3.2-5.0 [facility] Work Phone: Serum or plasma albumin/glob ulin mass ratioon 11-10-2021 Albumin/Globulin [Mass ratio] 1.0 {ratio} 0.9-2.4 [facility] Work Phone: Serum or plasma calcium jamey urement (mass/volume)on 11-10-2021 Calcium [Mass/Vol] 8.4 mg/dL 8.5-10.1 [facility] Work Phone: Serum or plasma creatinine m easurement (mass/volume)on 11-10-2021 Creatinine [Mass/Vol] 0.79 mg/dL 0.55-1.02 [facility] Work Phone: Comment on above: The validity of the calculated GFR & GFRAA in patients over 70 years has not been determined. Clinical correlation is essential. Serum or plasma ferritin joshua surement (mass/volume)on 11-10-2021 Ferritin [Mass/Vol] 19 ng/mL 8-252 [facility] Work Phone: Serum or plasma iron saturat ion measurement (mass fraction)on 11-10-2021 Iron saturation [Mass fraction] 9.1 % 15.0-55.0 [facility] Work Phone: Serum or plasma urea nitroge n measurement (mass/volume)on 11-10-2021 Urea nitrogen [Mass/Vol] 13 mg/dL 7-18 [facility] Work Phone: Thin prep Papanicolaou smear with manual screeningon 11-10-2021 Thin prep Papanicolaou smear with manual screening 9 U/L 15-37 [facility] Work Phone: Thin prep Papanicolaou smear with manual screening 7 5-15 [facility] Work Phone: Absolute lymphocyte counton 11-07-2021 Lymphocytes Auto (Unsp spec) [#/Vol] 2.43 10*3/uL 0.83-4.51 [facility] Work Phone: [phone] Basophil percentageon 2021 Basophil percentage 0-5 SEEN /hpf 0-5 [facility] Work Phone: Basophils/100 WBC (Bld) 0.3 % 0-1 [facility] Work Phone: Bilirubin [Mass/Vol] 0.60 mg/dL 0.20-1.00 [facility] Work Phone: Comment on above: For patients on eltr ombopag therapy, use of Dimension Samaria TBIL is not recommended. Chloride [Moles/Vol] 98 mmol/L 98-107 [facility] Work Phone: Eosinophils/100 WBC (Bld) 0.7 % 0-5 [facility] Work Phone: Glucose [Mass/Vol] 169 mg/dL 74-106 [facility] Work Phone: Comment on above: Fasting Glucose resu lt greater than or equal to 126 mg/dL suggests DIABETES MELLITUS per A.D.A. criteria. Neutrophils (Bld) [#/Vol] 13.9 10*3/uL 2.0-7.7 [facility] Work Phone: Neutrophils/100 WBC (Bld) 79.4 % 47-70 [facility] Work Phone: Potassium [Moles/Vol] 4.5 mmol/L 3.5-5.1 [facility] Work Phone: Protein [Mass/Vol] 9.7 g/dL 6.4-8.2 [facility] Work Phone: [phone] Sodium [Moles/Vol] 133 mmol/L 136-145 [facility] Work Phone: WBC (Bld) [#/Vol] 17.5 10*3/uL 4.4-11.0 [facility] Work Phone: Bilirubin Test strip Ql (U)o n 11-07-2021 Bilirubin Ql (U) Negative Negative [facility] Work Phone: Blood erythrocytes count (nu mber/volume)on 11-07-2021 RBC (Bld) [#/Vol] 4.82 10*6/uL 4.2-5.4 [facility] Work Phone: Blood hemoglobin measurement (mass/volume)on 11-07-2021 Hemoglobin (Bld) [Mass/Vol] 14.7 g/dL 12.0-15.0 [facility] Work Phone: Blood lymphocytes/100 leukoc yteson 11-07-2021 Lymphocytes/100 WBC (Bld) 13.9 % 19-41 [facility] Work Phone: Blood monocytes/100 leukocyt eson 11-07-2021 Monocytes/100 WBC (Bld) 5.3 % 0-10 [facility] Work Phone: Blood platelet mean volumeon 11-07-2021 Platelet mean volume (Bld) [Entitic vol] 9.2 fL 6.2-12.0 [facility] Work Phone: Determination of erythrocyte mean corpuscular volume (MCV)on 11-07-2021 MCV (RBC) [Entitic vol] 92.9 fL 81-99 [facility] Work Phone: Hematocrit Auto (Bld) [Volum e fraction]on 11-07-2021 Hematocrit (Bld) [Volume fraction] 44.8 % 37-47 [facility] Work Phone: Hyaline casts LM.LPF (Urine sed) [#/Area]on 11-07-2021 Hyaline casts (Urine sed) [#/Area] 0 /[LPF] 0-5 [facility] Work Phone: Ketones Test strip Ql (U)on 11-07-2021 Ketones Ql (U) Negative Negative [facility] Work Phone: Laboratory - Chemistry and C hemistry - challengeon 11-07-2021 ALP [Catalytic activity/Vol] 131 U/L 45-117 [facility] Work Phone: ALT [Catalytic activity/Vol] 23 U/L 13-56 [facility] Work Phone: CO2 [Moles/Vol] 23.0 mmol/L 21.0-32.0 [facility] Work Phone: Globulin (S) [Mass/Vol] 5.0 g/dL 2.2-4.2 [facility] Work Phone: Lipase [Catalytic activity/Vol] 95 U/L 73-393 [facility] Work Phone: Urea nitrogen/Creatinine [Mass ratio] 13.8 mg/mg 10-20 [facility] Work Phone: Laboratory - Hematology and Cell countson 11-07-2021 Erythrocyte distribution width (RBC) [Entitic vol] 49.3 fL 35.1-43.9 [facility] Work Phone: Erythrocyte distribution width (RBC) [Ratio] 14.4 % 11.6-14.6 [facility] Work Phone: Immature granulocytes/100 WBC (Bld) 0.400 % 0.0-0.9 [facility] Work Phone: Comment on above: IG% - Immature Granu locytes (promyelocytes, myelocytes and metamyelocytes) > 1% indicates that a LEFT SHIFT is Present. MCH (RBC) [Entitic mass] 30.5 pg 27.0-32.0 [facility] Work Phone: Nucleated RBC/100 WBC (Bld) [Ratio] 0 % 0-5 [facility] Work Phone: MCHC Auto (RBC) [Mass/Vol]on 11-07-2021 MCHC (RBC) [Mass/Vol] 32.8 g/dL 32-36 [facility] Work Phone: Mucus LM Ql (Urine sed)on Mucus Ql (Urine sed) 1+ /hpf [facility] Work Phone: Nitrite Test strip Ql (U)on 11-07-2021 Nitrite Ql (U) Negative Negative [facility] Work Phone: No Panel Informationon 11-07 Estimated Creatinine Clearance Calc 23.03 ml/min [facility] Work Phone: Estimated GFR (MDRD) Amer 29 mL/min >60 [facility] Work Phone: Comment on above: GFR Calc Estimated GFR (MDRD) Non-Af Amer 24 mL/min >60 [facility] Work Phone: Comment on above: Non- GFR Calc Troponin I High Sensitivity 6 pg/mL 3.0-54.0 [facility] Work Phone: Comment on above: Please Note: New Brandi t Units and Gender Specific Reference Ranges. For more information see Policy Stat Procedure Samaria High Sensitivity Troponin (TNIH) and attachments. Platelets bldon 11-07-2021 Platelets (Bld) [#/Vol] 685 10*3/uL 150-450 [facility] Work Phone: Protein Test strip Ql (U)on 11-07-2021 Protein Ql (U) 30 mg/dl Negative [facility] Work Phone: Serum or plasma albumin jamey urement (mass/volume)on 11-07-2021 Albumin [Mass/Vol] 4.7 g/dL 3.2-5.0 [facility] Work Phone: Serum or plasma albumin/glob ulin mass ratioon 11-07-2021 Albumin/Globulin [Mass ratio] 0.9 {ratio} 0.9-2.4 [facility] Work Phone: Serum or plasma calcium jamey urement (mass/volume)on 11-07-2021 Calcium [Mass/Vol] 10.6 mg/dL 8.5-10.1 [facility] Work Phone: Serum or plasma creatinine m easurement (mass/volume)on 11-07-2021 Creatinine [Mass/Vol] 2.18 mg/dL 0.55-1.02 [facility] Work Phone: Comment on above: The validity of the calculated GFR & GFRAA in patients over 70 years has not been determined. Clinical correlation is essential. Serum or plasma urea nitroge n measurement (mass/volume)on 11-07-2021 Urea nitrogen [Mass/Vol] 30 mg/dL 7-18 [facility] Work Phone: Squamous epithelial cells de tection in urine sediment by light microscopyon 11-07-2021 Epithelial cells.squamous LM Ql (Urine sed) 5-10 SEEN /hpf 5-10 [facility] Work Phone: Thin prep Papanicolaou smear with manual screeningon 11-07-2021 Thin prep Papanicolaou smear with manual screening 16 U/L 15-37 [facility] Work Phone: Thin prep Papanicolaou smear with manual screening 12 5-15 [facility] Work Phone: Urine blood detectionon 10-20 RBC Ql (U) Negative Negative [facility] Work Phone: RBC Ql (U) 0 SEEN /hpf 0-5 [facility] Work Phone: Urine clarityon 11-07-2021 Clarity (U) Clear Clear [facility] Work Phone: Urine color determinationon 11-07-2021 Color (U) Yellow Yellow [facility] Work Phone: Urine glucose detectionon Glucose Ql (U) Normal mg/dl Normal [facility] Work Phone: Urine leukocyte esterase det ection by dipstickon 11-07-2021 Leukocyte esterase Test strip Ql (U) 25 /ul Negative [facility] Work Phone: Urine pHon 11-07-2021 pH (U) 5.0 [pH] 5.0 - 8.0 [facility] Work Phone: Urine sediment bacteria coun t by microscopy (number/high power field)on 11-07-2021 Bacteria LM.HPF (Urine sed) [#/Area] 1 /[HPF] None Seen [facility] Work Phone: Urine specific gravity measu rementon 11-07-2021 Specific gravity (U) [Rel density] 1.025 1.002-1.03 0 [facility] Work Phone: Urobilinogen Auto test strip Ql (U)on 11-07-2021 Urobilinogen Ql (U) Normal mg/dl Normal [facility] Work Phone: Laboratory - Chemistry and C hemistry - challengeon 11-05-2021 Free T4 [Mass/Vol] 1.73 ng/dL 0.76-1.46 [facility] Work Phone: No Panel Informationon 11-05 Thyroid Stimulating Hormone (TSH) 0.05 uIU/mL 0.358-3.74 [facility] Work Phone: Basophil percentageon 2021 Chloride [Moles/Vol] 102 mmol/L 98-107 [facility] Work Phone: Glucose [Mass/Vol] 120 mg/dL 74-106 [facility] Work Phone: Comment on above: Fasting Glucose resu lt from 100 to 125 mg/dL suggests IMPAIRED HOMEOSTASIS per A.D.A. criteria. Potassium [Moles/Vol] 3.2 mmol/L 3.5-5.1 [facility] Work Phone: Sodium [Moles/Vol] 137 mmol/L 136-145 [facility] Work Phone: Laboratory - Chemistry and C hemistry - challengeon 10-19-2021 CO2 [Moles/Vol] 27.0 mmol/L 21.0-32.0 [facility] Work Phone: Urea nitrogen/Creatinine [Mass ratio] 16.3 mg/mg 10-20 [facility] Work Phone: No Panel Informationon 10-19 Estimated GFR (MDRD) Amer 53 mL/min >60 [facility] Work Phone: Comment on above: GFR Calc Estimated GFR (MDRD) Non-Af Amer 44 mL/min >60 [facility] Work Phone: Comment on above: Non- GFR Calc Serum or plasma calcium jamey urement (mass/volume)on 10-19-2021 Calcium [Mass/Vol] 8.7 mg/dL 8.5-10.1 [facility] Work Phone: Serum or plasma creatinine m easurement (mass/volume)on 10-19-2021 Creatinine [Mass/Vol] 1.29 mg/dL 0.55-1.02 [facility] Work Phone: Comment on above: The validity of the calculated GFR & GFRAA in patients over 70 years has not been determined. Clinical correlation is essential. Serum or plasma urea nitroge n measurement (mass/volume)on 10-19-2021 Urea nitrogen [Mass/Vol] 21 mg/dL 7-18 [facility] Work Phone: Thin prep Papanicolaou smear with manual screeningon 10-19-2021 Thin prep Papanicolaou smear with manual screening 8 5-15 [facility] Work Phone: Absolute lymphocyte counton 10-12-2021 Lymphocytes Auto (Unsp spec) [#/Vol] 1.67 10*3/uL 0.83-4.51 [facility] Work Phone: Basophil percentageon 2021 Basophils/100 WBC (Bld) 0.6 % 0-1 [facility] Work Phone: Chloride [Moles/Vol] 105 mmol/L 98-107 [facility] Work Phone: Eosinophils/100 WBC (Bld) 3.0 % 0-5 [facility] Work Phone: Glucose [Mass/Vol] 132 mg/dL 74-106 [facility] Work Phone: Comment on above: Fasting Glucose resu lt greater than or equal to 126 mg/dL suggests DIABETES MELLITUS per A.D.A. criteria. Neutrophils (Bld) [#/Vol] 7.4 10*3/uL 2.0-7.7 [facility] Work Phone: [phone] Neutrophils/100 WBC (Bld) 72.2 % 47-70 [facility] Work Phone: Potassium [Moles/Vol] 4.5 mmol/L 3.5-5.1 [facility] Work Phone: [phone] Comment on above: Slight Hemolysis, Re sult may be falsely increased. Sodium [Moles/Vol] 137 mmol/L 136-145 [facility] Work Phone: WBC (Bld) [#/Vol] 10.2 10*3/uL 4.4-11.0 [facility] Work Phone: Blood erythrocytes count (nu mber/volume)on 10-12-2021 RBC (Bld) [#/Vol] 3.79 10*6/uL 4.2-5.4 [facility] Work Phone: Blood hemoglobin measurement (mass/volume)on 10-12-2021 Hemoglobin (Bld) [Mass/Vol] 11.9 g/dL 12.0-15.0 [facility] Work Phone: Blood lymphocytes/100 leukoc yteson 10-12-2021 Lymphocytes/100 WBC (Bld) 16.3 % 19-41 [facility] Work Phone: Blood monocytes/100 leukocyt eson 10-12-2021 Monocytes/100 WBC (Bld) 7.5 % 0-10 [facility] Work Phone: Blood platelet mean volumeon 10-12-2021 Platelet mean volume (Bld) [Entitic vol] 9.5 fL 6.2-12.0 [facility] Work Phone: Determination of erythrocyte mean corpuscular volume (MCV)on 10-12-2021 MCV (RBC) [Entitic vol] 95.8 fL 81-99 [facility] Work Phone: Hematocrit Auto (Bld) [Volum e fraction]on 10-12-2021 Hematocrit (Bld) [Volume fraction] 36.3 % 37-47 [facility] Work Phone: Laboratory - Chemistry and C hemistry - challengeon 10-12-2021 CO2 [Moles/Vol] 22.0 mmol/L 21.0-32.0 [facility] Work Phone: Natriuretic peptide B (Bld) [Mass/Vol] 124.7 pg/mL 0-100 [facility] Work Phone: Urea nitrogen/Creatinine [Mass ratio] 18.3 mg/mg 10-20 [facility] Work Phone: Laboratory - Hematology and Cell countson 10-12-2021 Erythrocyte distribution width (RBC) [Entitic vol] 51.6 fL 35.1-43.9 [facility] Work Phone: Erythrocyte distribution width (RBC) [Ratio] 14.8 % 11.6-14.6 [facility] Work Phone: Immature granulocytes/100 WBC (Bld) 0.400 % 0.0-0.9 [facility] Work Phone: Comment on above: IG% - Immature Granu locytes (promyelocytes, myelocytes and metamyelocytes) > 1% indicates that a LEFT SHIFT is Present. MCH (RBC) [Entitic mass] 31.4 pg 27.0-32.0 [facility] Work Phone: Nucleated RBC/100 WBC (Bld) [Ratio] 0 % 0-5 [facility] Work Phone: MCHC Auto (RBC) [Mass/Vol]on 10-12-2021 MCHC (RBC) [Mass/Vol] 32.8 g/dL 32-36 [facility] Work Phone: No Panel Informationon 10-12 Estimated GFR (MDRD) Amer 52 mL/min >60 [facility] Work Phone: Comment on above: GFR Calc Estimated GFR (MDRD) Non-Af Amer 43 mL/min >60 [facility] Work Phone: Comment on above: Non- GFR Calc Platelets bldon 10-12-2021 Platelets (Bld) [#/Vol] 503 10*3/uL 150-450 [facility] Work Phone: Serum or plasma calcium jamey urement (mass/volume)on 10-12-2021 Calcium [Mass/Vol] 9.1 mg/dL 8.5-10.1 [facility] Work Phone: Serum or plasma creatinine m easurement (mass/volume)on 10-12-2021 Creatinine [Mass/Vol] 1.31 mg/dL 0.55-1.02 [facility] Work Phone: Comment on above: The validity of the calculated GFR & GFRAA in patients over 70 years has not been determined. Clinical correlation is essential. Serum or plasma urea nitroge n measurement (mass/volume)on 10-12-2021 Urea nitrogen [Mass/Vol] 24 mg/dL 7-18 [facility] Work Phone: Thin prep Papanicolaou smear with manual screeningon 10-12-2021 Thin prep Papanicolaou smear with manual screening 10 5-15 [facility] Work Phone: LEFT HEART CATHon [...] normal. Sinus of Valsalva is normal. Normal [facility] ECG 12 Leadon 09-10-2021 Atrial Rate [facility] P [place] [facility] P-R Interval [facility] Q-T Interval [facility] Q-T Interval (corrected) [facility] QRS Duration [facility] QTC Calculation (Bezet) [facility] R [place] [facility] T [place] [facility] Basophil percentageon 2021 Bilirubin [Mass/Vol] 0.40 mg/dL 0.20-1.00 [facility] Work Phone: Comment on above: For patients on eltr ombopag therapy, use of Dimension Samaria TBIL is not recommended. Chloride [Moles/Vol] 102 mmol/L 98-107 [facility] Work Phone: Cholesterol [Mass/Vol] 149 mg/dL <200 [facility] Work Phone: Comment on above: <200 mg/dL Desirable 200-240 mg/dL Borderline >240 mg/dL High Risk Glucose [Mass/Vol] 101 mg/dL 74-106 [facility] Work Phone: Comment on above: Fasting Glucose resu lt from 100 to 125 mg/dL suggests IMPAIRED HOMEOSTASIS per A.D.A. criteria. Potassium [Moles/Vol] 4.3 mmol/L 3.5-5.1 [facility] Work Phone: Protein [Mass/Vol] 7.9 g/dL 6.4-8.2 [facility] Work Phone: Sodium [Moles/Vol] 136 mmol/L 136-145 [facility] Work Phone: Triglyceride [Mass/Vol] 209 mg/dL <199 [facility] Work Phone: Comment on above: The drugs N-Acetylcy steine and Metamizole may falsely depress this assay.Serum Triglycerides Reference Interval Normal <150 mg/dL Borderline high 150 - 199 mg/dL High 200 - 499 mg/dL Very High > or = 500 mg/dL Laboratory - Chemistry and C hemistry - challengeon 07-26-2021 ALP [Catalytic activity/Vol] 82 U/L 45-117 [facility] Work Phone: ALT [Catalytic activity/Vol] 21 U/L 13-56 [facility] Work Phone: CO2 [Moles/Vol] 27.0 mmol/L 21.0-32.0 [facility] Work Phone: Free T4 [Mass/Vol] 1.79 ng/dL 0.76-1.46 [facility] Work Phone: Globulin (S) [Mass/Vol] 3.8 g/dL 2.2-4.2 [facility] Work Phone: Urea nitrogen/Creatinine [Mass ratio] 15.2 mg/mg 10-20 [facility] Work Phone: Laboratory - Hematology and Cell countson 07-26-2021 HbA1c (Bld) [Mass fraction] 6.2 % 4.2-6.3 [facility] Work Phone: No Panel Informationon 07-26 Estimated GFR (MDRD) Amer 68 mL/min >60 [facility] Work Phone: Comment on above: GFR Calc Estimated GFR (MDRD) Non-Af Amer 56 mL/min >60 [facility] Work Phone: Comment on above: Non- GFR Calc Thyroid Stimulating Hormone (TSH) 0.06 uIU/mL 0.358-3.74 [facility] Work Phone: Serum or plasma albumin jamey urement (mass/volume)on 07-26-2021 Albumin [Mass/Vol] 4.1 g/dL 3.2-5.0 [facility] Work Phone: Serum or plasma albumin/glob ulin mass ratioon 07-26-2021 Albumin/Globulin [Mass ratio] 1.1 {ratio} 0.9-2.4 [facility] Work Phone: Serum or plasma calcium jamey urement (mass/volume)on 07-26-2021 Calcium [Mass/Vol] 9.1 mg/dL 8.5-10.1 [facility] Work Phone: Serum or plasma cholesterol in HDL measurement (mass/volume)on 07-26-2021 Cholesterol in HDL [Mass/Vol] 50 mg/dL >40 [facility] Work Phone: Comment on above: The drugs N-Acetylcy steine and Metamizole may falsely depress this assay. Reference Range HDL <40 mg/dL Low HDL Cholesterol HDL >or= 60 mg/dL High HDL Cholesterol Serum or plasma cholesterol in VLDL measurement (mass/volume)on 07-26-2021 Cholesterol in VLDL [Mass/Vol] 42 mg/dL 5-40 [facility] Work Phone: Serum or plasma creatinine m easurement (mass/volume)on 07-26-2021 Creatinine [Mass/Vol] 1.05 mg/dL 0.55-1.02 [facility] Work Phone: Comment on above: The validity of the calculated GFR & GFRAA in patients over 70 years has not been determined. Clinical correlation is essential. Serum or plasma low density lipoprotein (LDL) cholesterol measurement (mass/volume)on 07-26-2021 Cholesterol in LDL [Mass/Vol] 57 mg/dL 0-130 [facility] Work Phone: Serum or plasma urea nitroge n measurement (mass/volume)on 07-26-2021 Urea nitrogen [Mass/Vol] 16 mg/dL 7-18 [facility] Work Phone: Thin prep Papanicolaou smear with manual screeningon 07-26-2021 Thin prep Papanicolaou smear with manual screening 7 U/L 15-37 [facility] Work Phone: Thin prep Papanicolaou smear with manual screening 7 5-15 [facility] Work Phone: Absolute lymphocyte counton 07-03-2021 Lymphocytes Auto (Unsp spec) [#/Vol] 1.39 10*3/uL 0.83-4.51 [facility] Work Phone: Amorphous sediment detection in urine sediment by light microscopyon 07-03-2021 Amorphous sediment LM Ql (Urine sed) 1+ URATE [facility] Work Phone: Basophil percentageon 2021 Basophil percentage 0-5 SEEN /hpf [facility] Work Phone: Basophils/100 WBC (Bld) 0.3 % 0-1 [facility] Work Phone: Bilirubin [Mass/Vol] 0.60 mg/dL 0.20-1.00 [facility] Work Phone: Comment on above: For patients on eltr ombopag therapy, use of Dimension Samaria TBIL is not recommended. Chloride [Moles/Vol] 104 mmol/L 98-107 [facility] Work Phone: Eosinophils/100 WBC (Bld) 1.7 % 0-5 [facility] Work Phone: Glucose [Mass/Vol] 103 mg/dL 74-106 [facility] Work Phone: Comment on above: Fasting Glucose resu lt from 100 to 125 mg/dL suggests IMPAIRED HOMEOSTASIS per A.D.A. criteria. Neutrophils (Bld) [#/Vol] 9.8 10*3/uL 2.0-7.7 [facility] Work Phone: Neutrophils/100 WBC (Bld) 81.7 % 47-70 [facility] Work Phone: Potassium [Moles/Vol] 4.0 mmol/L 3.5-5.1 [facility] Work Phone: Protein [Mass/Vol] 8.9 g/dL 6.4-8.2 [facility] Work Phone: Sodium [Moles/Vol] 135 mmol/L 136-145 [facility]: WBC (Bld) [#/Vol] 12.0 10*3/uL 4.4-11.0 [facility] Work Phone: Bilirubin Test strip Ql (U)o n 07-03-2021 Bilirubin Ql (U) Negative Negative [facility] Work Phone: Blood erythrocytes count (nu mber/volume)on 07-03-2021 RBC (Bld) [#/Vol] 4.42 10*6/uL 4.2-5.4 [facility] Work Phone: Blood hemoglobin measurement (mass/volume)on 07-03-2021 Hemoglobin (Bld) [Mass/Vol] 14.3 g/dL 12.0-15.0 [facility] Work Phone: Blood lymphocytes/100 leukoc yteson 07-03-2021 Lymphocytes/100 WBC (Bld) 11.6 % 19-41 [facility] Work Phone: Blood monocytes/100 leukocyt eson 07-03-2021 Monocytes/100 WBC (Bld) 4.2 % 0-10 [facility] Work Phone: Blood platelet mean volumeon 07-03-2021 Platelet mean volume (Bld) [Entitic vol] 9.0 fL 6.2-12.0 [facility] Work Phone: Determination of erythrocyte mean corpuscular volume (MCV)on 07-03-2021 MCV (RBC) [Entitic vol] 94.1 fL 81-99 [facility] Work Phone: Direct bilirubinon 2 Bilirubin.direct [Mass/Vol] 0.11 mg/dL 0.00-0.30 [facility] Work Phone: Hematocrit Auto (Bld) [Volum e fraction]on 07-03-2021 Hematocrit (Bld) [Volume fraction] 41.6 % 37-47 [facility] Work Phone: Ketones Test strip Ql (U)on 07-03-2021 Ketones Ql (U) 5 mg/dl Negative [facility] Work Phone: Laboratory - Chemistry and C hemistry - challengeon 07-03-2021 ALP [Catalytic activity/Vol] 90 U/L 45-117 [facility] Work Phone: ALT [Catalytic activity/Vol] 25 U/L 13-56 [facility] Work Phone: CO2 [Moles/Vol] 23.0 mmol/L 21.0-32.0 [facility] Work Phone: Globulin (S) [Mass/Vol] 4.3 g/dL 2.2-4.2 [facility] Work Phone: Lipase [Catalytic activity/Vol] 49 U/L 73-393 [facility] Work Phone: Urea nitrogen/Creatinine [Mass ratio] 22.0 mg/mg 10-20 [facility] Work Phone: Laboratory - Hematology and Cell countson 07-03-2021 Erythrocyte distribution width (RBC) [Entitic vol] 50.7 fL 35.1-43.9 [facility] Work Phone: Erythrocyte distribution width (RBC) [Ratio] 14.6 % 11.6-14.6 [facility] Work Phone: Immature granulocytes/100 WBC (Bld) 0.500 % 0.0-0.9 [facility] Work Phone: Comment on above: IG% - Immature Granu locytes (promyelocytes, myelocytes and metamyelocytes) > 1% indicates that a LEFT SHIFT is Present. MCH (RBC) [Entitic mass] 32.4 pg 27.0-32.0 [facility] Work Phone: Nucleated RBC/100 WBC (Bld) [Ratio] 0 % 0-5 [facility] Work Phone: MCHC Auto (RBC) [Mass/Vol]on 07-03-2021 MCHC (RBC) [Mass/Vol] 34.4 g/dL 32-36 [facility] Work Phone: Mucus LM Ql (Urine sed)on Mucus Ql (Urine sed) 0 SEEN /hpf [facility] Work Phone: Nitrite Test strip Ql (U)on 07-03-2021 Nitrite Ql (U) Negative Negative [facility] Work Phone: No Panel Informationon 07-03 Estimated Creatinine Clearance Calc 45.23 ml/min [facility] Work Phone: Estimated GFR (MDRD) Amer 56 mL/min >60 [facility] Work Phone: Comment on above: GFR Calc Estimated GFR (MDRD) Non-Af Amer 47 mL/min >60 [facility] Work Phone: Comment on above: Non- GFR Calc Platelets bldon 07-03-2021 Platelets (Bld) [#/Vol] 496 10*3/uL 150-450 [facility] Work Phone: Protein Test strip Ql (U)on 07-03-2021 Protein Ql (U) 15 mg/dl Negative [facility] Work Phone: Serum or plasma albumin jamey urement (mass/volume)on 07-03-2021 Albumin [Mass/Vol] 4.6 g/dL 3.2-5.0 [facility] Work Phone: Serum or plasma calcium jamey urement (mass/volume)on 07-03-2021 Calcium [Mass/Vol] 8.7 mg/dL 8.5-10.1 [facility] Work Phone: Serum or plasma creatinine m easurement (mass/volume)on 07-03-2021 Creatinine [Mass/Vol] 1.23 mg/dL 0.55-1.02 [facility] Work Phone: Comment on above: The validity of the calculated GFR & GFRAA in patients over 70 years has not been determined. Clinical correlation is essential. Serum or plasma urea nitroge n measurement (mass/volume)on 07-03-2021 Urea nitrogen [Mass/Vol] 27 mg/dL 7-18 [facility] Work Phone: Squamous epithelial cells de tection in urine sediment by light microscopyon 07-03-2021 Epithelial cells.squamous LM Ql (Urine sed) 10-25 SEEN /hpf [facility] Work Phone: Thin prep Papanicolaou smear with manual screeningon 07-03-2021 Thin prep Papanicolaou smear with manual screening 14 U/L 15-37 [facility] Work Phone: Thin prep Papanicolaou smear with manual screening 8 5-15 [facility] Work Phone: Urine blood detectionon 06-22 RBC Ql (U) Negative Negative [facility] Work Phone: RBC Ql (U) 0 SEEN /hpf [facility] Work Phone: Urine clarityon 07-03-2021 Clarity (U) Sl. Cloudy Clear [facility] Work Phone: Urine color determinationon 07-03-2021 Color (U) Yellow Yellow [facility] Work Phone: Urine glucose detectionon Glucose Ql (U) Normal mg/dl Normal [facility] Work Phone: Urine leukocyte esterase det ection by dipstickon 07-03-2021 Leukocyte esterase Test strip Ql (U) 25 /ul Negative [facility] Work Phone: Urine pHon 07-03-2021 pH (U) 5.0 [pH] [facility] Work Phone: Urine sediment bacteria coun t by microscopy (number/high power field)on 07-03-2021 Bacteria LM.HPF (Urine sed) [#/Area] 0 /[HPF] None Seen [facility] Work Phone: Urine specific gravity measu rementon 07-03-2021 Specific gravity (U) [Rel density] 1.020 [facility] Work Phone: Urobilinogen Auto test strip Ql (U)on 07-03-2021 Urobilinogen Ql (U) Normal mg/dl Normal [facility] Work Phone: SARS-COV-2,NAAon 01-24-2020 SARS-COV-2, JUAN Not Detected Normal [facility] Comment on above: Result Comment: Refe rence range: Not Detected (NOTE) This nucleic acid amplification test was developed and its performance characteristics determined by [employer]. Nucleic acid amplification tests include PCR and [...] 01-23-2020 Creatinine [Mass/Vol] 1.17 mg/dL High 0.52-1.04 [facility]3] Comment on above: Performed By: #### A CBC, ITROT, CMPF #### Testing performed at [address] [place] [address] EST. GFR, >60 Normal [facility] Comment on above: Performed By: #### A CBC, ITROT, CMPF #### Testing performed at [address] [address] EST. GFR,Non 50 ml/min/1.73sq.m Normal [facility] Comment on above: Performed By: #### A CBCAIMEEOT, CMPF #### Testing performed at [address] [address] GFR/1.73 sq M predicted among non-blacks MDRD (S/P/Bld) [Vol rate/Area] Average GFR for 60-69 years old = 85. Normal [facility] Comment on above: Result Comment: Valuer tai Kidney disease, GFR = <60. Kidney failure, GFR = <15. The GFR estimate is not adjusted for extreme body surface area or acute process, nor has it been validated for women or ethnic groups other than and . Performed By: #### A CBC, ITROT, CMPF #### Testing performed at [address] [address] Urea nitrogen [Mass/Vol] 22 mg/dL High 7-20 [facility] Comment on above: Performed By: #### A CBC, ITROT, CMPF #### Testing performed at [address] [address] Anion gap [Moles/Vol] 14 mmol/L Normal 8-16 [facility]3] Comment on above: Performed By: #### A CBC ITROT, CMPF #### Testing performed at [address] [address] Calcium [Mass/Vol] 9.1 mg/dL Normal 8.4-10.2 [facility] Comment on above: Performed By: #### A CBC, ITROT, CMPF #### Testing performed at [address] [address] Chloride [Moles/Vol] 101 mmol/L Normal 98-107 [facility] Comment on above: Performed By: #### A CBC, ITROT, CMPF #### Testing performed at [address] [address] CO2 [Moles/Vol] 22 mmol/L Normal 22-30 [facility] Comment on above: Performed By: #### A CBC, ITROT, CMPF #### Testing performed at [address] [address] Glucose [Mass/Vol] 75 mg/dL Normal 70-100 [facility] Comment on above: Result Comment: NORMAL <100 mg/dL PREDIABETES 101-126 mg/dL DIABETES 126 mg/dL or higher Performed By: #### A CBC, ITROT, CMPF #### Testing performed at [address] [address] Potassium [Moles/Vol] 4.6 mmol/L Normal 3.5-5.1 [facility]3] Comment on above: Performed By: #### A CBC, ITROT, CMPF #### Testing performed at [address] [address] Sodium [Moles/Vol] 137 mmol/L Normal 136-145 [facility] Comment on above: Performed By: #### A CBC, ITROT, CMPF #### Testing performed at [address] [address] CBCon 01-23-2020 ABSOLUTE BAS 0.1 10*3/uL Normal 0.0-0.2 [facility] Comment on above: Performed By: #### A CBC, PT, PTT ####Testing performed at [address] [address] ABSOLUTE EOS 0.20 10*3/uL Normal 0.0-0.7 [facility] Comment on above: Performed By: #### A CBC, PT, PTT ####Testing performed at [address] [address] ABSOLUTE NEUTROPHIL COUNT 4.6 10*3/uL Normal 1.4-6.5 [facility] Comment on above: Performed By: #### A CBC, PT, PTT ####Testing performed at [address] [address] Basophils/100 WBC (Bld) 1.2 % Normal 0.0-2.0 [facility] Comment on above: Performed By: #### A CBC, PT, PTT ####Testing performed at [address] [address] DTYPE AUTO DIFF Normal [facility] Comment on above: Performed By: #### A CBC, PT, PTT ####Testing performed at [address] [address] Eosinophils/100 WBC (Bld) 2.6 % Normal 0.0-11.0 [facility] Comment on above: Performed By: #### A CBC, PT, PTT ####Testing performed at [address] [address] Lymphocytes (Bld) [#/Vol] 2.20 10*3/uL Normal 1.2-3.4 [facility] Comment on above: Performed By: #### A CBC, PT, PTT ####Testing performed at [address] [address] Lymphocytes/100 WBC (Bld) 28.5 % Normal 20.0-55.0 [facility] Comment on above: Performed By: #### A CBC, PT, PTT ####Testing performed at [address] [address] Monocytes (Bld) [#/Vol] 0.6 10*3/uL Normal 0.0-0.7 [facility] Comment on above: Performed By: #### A CBC, PT, PTT ####Testing performed at [address] [address] Monocytes/100 WBC (Bld) 8.2 % Normal 0.0-10.0 [facility] Comment on above: Performed By: #### A CBC, PT, PTT ####Testing performed at [address] [address] Neutrophils/100 WBC (Bld) 59.5 % Normal 37.0-75.0 [facility] Comment on above: Performed By: #### A CBC, PT, PTT ####Testing performed at [address] [address] Erythrocyte distribution width (RBC) [Ratio] 15.6 % High 11.5-14.5 [facility] Comment on above: Performed By: #### A CBC, PT, PTT ####Testing performed at [address] [address] Hematocrit (Bld) [Volume fraction] 37.6 % Normal 36.0-48.0 [facility] Comment on above: Performed By: #### A CBC, PT, PTT ####[place] [address] Hemoglobin (Bld) [Mass/Vol] 12.2 g/dL Normal 12.0-16.0 [facility] Comment on above: Performed By: #### A CBC, PT, PTT ####[place] [address] MCH (RBC) [Entitic mass] 31.0 pg Normal 26.0-35.0 [facility] Comment on above: Performed By: #### A CBC, PT, PTT ####[place] [address] MCHC (RBC) [Mass/Vol] 32.5 g/dL Normal 27.0-37.0 [facility]3] Comment on above: Performed By: #### A CBC, PT, PTT ####[place] [address] MCV (RBC) [Entitic vol] 95.3 fL Normal 80.0-100.0 [facility] Comment on above: Performed By: #### A CBC, PT, PTT ####[place] [address] Platelet mean volume (Bld) [Entitic vol] 6.7 fL Low 7.4-11.0 [facility] Comment on above: Performed By: #### A CBC, PT, PTT ####Testing performed at [place] [id number] Platelets (Bld) [#/Vol] 479 10*3/uL High 130.0-400. 0 [facility] Comment on above: Performed By: #### A CBC, PT, PTT ####Testing performed at [place] [id number] RBC (Bld) [#/Vol] 3.94 10*6/uL Low 4.0-5.4 [facility] Comment on above: Performed By: #### A CBC, PT, PTT ####Testing performed at [address] [address] WBC (Bld) [#/Vol] 7.8 10*3/uL Normal 3.6-11.0 [facility] Comment on above: Performed By: #### A CBC, PT, PTT ####Testing performed at [address] [address] PROTIMEon 01-23-2020 INR Coag (PPP) [Relative time] 0.91 {INR} Normal 0.88-1.12 [facility] Comment on above: Result Comment: 2.0-3.0 THERAPEUTIC RANGE 2.5-3.5 MECHANICAL VALVE RANGE Performed By: #### A CBC, PT, PTT ####Testing performed at [address] [address] PT Coag (PPP) [Time] 12.2 s Normal 11.8-14.4 [facility] Comment on above: Performed By: #### A CBC, PT, PTT ####Testing performed at [address] [address] PTTon 01-23-2020 aPTT Coag (Bld) [Time] 25.9 s Normal 22.4-34.7 [facility] Comment on above: Result Comment: CARDIAC AND PE/DVT THERAPUTIC RANGE 69-97 SEC VASCULAR/THREATENED LIMB THERAPUTIC RANGE 80-112 SEC Performed By: #### A CBC, ITROT, CMPF #### Testing performed at [address] [address] LARGE JOINT/BURSA INJECTION AND/OR ASPIRATION: R subacromial bursaon 12-24-2019 Seth Solorzano 0 8:21 AM LARGE JOINT/BURSA INJECTION AND/OR [...] patient was prepped with Betadine and alcohol. [facility] CELIAC DISEASE COMP PANELon 10-17-2019 DEAMINATED GLIADIN AB, IGA 7 units Normal 0-19 [facility] Comment on above: Result Comment: (NOT E) Negative 0 - 19 Weak Positive 20 - 30 Moderate to Strong Positive >30 Performed By: #### F X #### Testing performed at [address] [address] #### LCELCP #### [place] [address] DEAMINATED GLIADIN AB, IGG 1 units Normal 0-19 [facility] Comment on above: Result Comment: (NOT E) Negative 0 - 19 Weak Positive 20 - 30 Moderate to Strong Positive >30 Performed By: #### F X #### Testing performed at [address] [address] #### LCELCP #### Testing performed at [address] [address] ENDOMYSIAL AB IGA Negative Normal Negative [facility] Comment on above: Performed By: #### F X #### Testing performed at [address] [address] #### LCELCP #### Testing performed at [address] [address] TTG- IGA <2 Normal 0-3 [facility] Comment on above: Result Comment: (NOT E) Negative 0 - 3 Weak Positive 4 - 10 Positive >10 Tissue Transglutaminase (tTG) has been identified as the endomysial antigen. Studies have demonstr- ated that endomysial IgA antibodies have over 99% specificity for gluten sensitive enteropathy. Performed By: #### F X #### Testing performed at [address] [address] #### LCELCP #### Testing performed at [address] [address] TTG-IGG <2 Normal 0-5 [facility] Comment on above: Result Comment: (NOT E) Negative 0 - 5 Weak Positive 6 - 9 Positive >9 Performed By: #### F X #### Testing performed at [address] [address] #### LCELCP #### [place] [address] IgA [Mass/Vol] 201 mg/dL Normal 87-352 [facility] Comment on above: Result Comment: PERF ORMED AT [facility] Performed By: #### F X #### [place] [address] #### LCELCP #### Testing performed at [address] [address] CBCon 10-16-2019 ABSOLUTE BAS 0.1 10*3/uL Normal 0.0-0.2 [facility] Comment on above: Performed By: #### A CBC, RENF, MG, RTSH, T42 ####Testing performed at [place] [id number] ABSOLUTE EOS 0.30 10*3/uL Normal 0.0-0.7 [facility] Comment on above: Performed By: #### A CBC, RENF, MG, RTSH, T42 ####Testing performed at [address] [address] ABSOLUTE NEUTROPHIL COUNT 4.3 10*3/uL Normal 1.4-6.5 [facility] Comment on above: Performed By: #### A CBC, RENF, MG, RTSH, T42 ####Testing performed at [place] [id number] Basophils/100 WBC (Bld) 0.8 % Normal 0.0-2.0 [facility] Comment on above: Performed By: #### A CBC, RENF, MG, RTSH, T42 ####Testing performed at [address] [address] DTYPE AUTO DIFF Normal [facility] Comment on above: Performed By: #### A CBC, RENF, MG, RTSH, T42 ####Testing performed at [address] [address] Eosinophils/100 WBC (Bld) 4.2 % Normal 0.0-11.0 [facility] Comment on above: Performed By: #### A CBC, RENF, MG, RTSH, T42 ####Testing performed at [address] [address] Lymphocytes (Bld) [#/Vol] 2.60 10*3/uL Normal 1.2-3.4 [facility] Comment on above: Performed By: #### A CBC, RENF, MG, RTSH, T42 ####Testing performed at [address] [address] Lymphocytes/100 WBC (Bld) 32.8 % Normal 20.0-55.0 [facility] Comment on above: Performed By: #### A CBC, RENF, MG, RTSH, T42 ####Testing performed at [address] [address] Monocytes (Bld) [#/Vol] 0.7 10*3/uL Normal 0.0-0.7 [facility] Comment on above: Performed By: #### A CBC, RENF, MG, RTSH, T42 ####Testing performed at [address] [address] Monocytes/100 WBC (Bld) 8.3 % Normal 0.0-10.0 [facility] Comment on above: Performed By: #### A CBC, RENF, MG, RTSH, T42 ####Testing performed at [address] [address] Neutrophils/100 WBC (Bld) 53.9 % Normal 37.0-75.0 [facility] Comment on above: Performed By: #### A CBC, RENF, MG, RTSH, T42 ####Testing performed at [address] [address] Erythrocyte distribution width (RBC) [Ratio] 15.7 % High 11.5-14.5 [facility] Comment on above: Performed By: #### A CBC, RENF, MG, RTSH, T42 ####Testing performed at [address] [address] Hematocrit (Bld) [Volume fraction] 28.4 % Low 36.0-48.0 [facility] Comment on above: Performed By: #### A CBC, RENF, MG, RTSH, T42 ####Testing performed at [address] [address] Hemoglobin (Bld) [Mass/Vol] 9.6 g/dL Low 12.0-16.0 [facility] Comment on above: Performed By: #### A CBC, RENF, MG, RTSH, T42 ####Testing performed at [address] [address] MCH (RBC) [Entitic mass] 32.2 pg Normal 26.0-35.0 [facility] Comment on above: Performed By: #### A CBC, RENF, MG, RTSH, T42 ####Testing performed at [address] [address] MCHC (RBC) [Mass/Vol] 33.9 g/dL Normal 27.0-37.0 [facility]3] Comment on above: Performed By: #### A CBC, RENF, MG, RTSH, T42 ####Testing performed at [address] [address] MCV (RBC) [Entitic vol] 95.2 fL Normal 80.0-100.0 [facility] Comment on above: Performed By: #### A CBC, RENF, MG, RTSH, T42 ####Testing performed at [address] [address] Platelet mean volume (Bld) [Entitic vol] 7.3 fL Low 7.4-11.0 [facility] Comment on above: Performed By: #### A CBC, RENF, MG, RTSH, T42 ####Testing performed at [address] [address] Platelets (Bld) [#/Vol] 283 10*3/uL Normal 130.0-400. 0 [facility] Comment on above: Performed By: #### A CBC, RENF, MG, RTSH, T42 ####Testing performed at [address] [address] RBC (Bld) [#/Vol] 2.99 10*6/uL Low 4.0-5.4 [facility] Comment on above: Performed By: #### A CBC, RENF, MG, RTSH, T42 ####Testing performed at [address] [address] WBC (Bld) [#/Vol] 8.0 10*3/uL Normal 3.6-11.0 [facility] Comment on above: Performed By: #### A CBC, RENF, MG, RTSH, T42 ####Testing performed at [address] [address] CBC, EDIF, PLATELETon 2019 ABSOLUTE BASOPHIL COUNT 0.1 10*3/uL 0 - 0.2 10*3/uL [facility] [employer] Basophils/100 WBC (Bld) 0.8 % 0 - 2 % [facility] [employer] Differential cell count method Nom (Bld) AUTO DIFF % [facility] [employer] Eosinophils (Bld) [#/Vol] 0.30 10*3/uL 0 - 0.7 10*3/uL [facility] [employer] Eosinophils/100 WBC (Bld) 4.2 % 0 - 11 % [facility] [employer] Erythrocyte distribution width (RBC) [Ratio] 15.7 % High 11.5 - 14.5 % [facility] [employer] Hematocrit (Bld) [Volume fraction] 28.4 % Low 36 - 48 % [facility] [employer] Hemoglobin (Bld) [Mass/Vol] 9.6 g/dL Low [facility] [employer] Lymphocytes (Bld) [#/Vol] 2.60 10*3/uL 1.2 - 3.4 10*3/uL [facility] Lymphocytes/100 WBC (Bld) 32.8 % 20 - 55 % [facility] MCH (RBC) [Entitic mass] 32.2 pg 26 - [address] [facility] MCHC (RBC) [Mass/Vol] 33.9 g/dL [facility] MCV (RBC) [Entitic vol] 95.2 fL [facility] Monocytes (Bld) [#/Vol] 0.7 10*3/uL 0 - 0.7 10*3/uL [facility] Monocytes/100 WBC (Bld) 8.3 % 0 - 10 % [facility] Neutrophils (Bld) [#/Vol] 4.3 10*3/uL 1.4 - 6.5 10*3/uL [facility] Neutrophils/100 WBC (Bld) 53.9 % 37 - 75 % [facility] Platelet mean volume (Bld) [Entitic vol] 7.[address] [facility] Platelets (Bld) [#/Vol] 283 10*3/uL 130 - 400 10*3/uL [facility] RBC (Bld) [#/Vol] 2.99 10*6/uL Low 4 - 5.4 10*6/uL [facility] WBC (Bld) [#/Vol] 8.0 10*3/uL 3.6 - 11 10*3/uL [facility] FREE T4on 10-16-2019 Free T4 [Mass/Vol] 0.80 ng/dL Normal 0.61-1.12 [facility] Comment on above: Performed By: #### A CBC, RENF, MG, RTSH, T42 ####Testing performed at [place] [id number] ISTAT TROPONIN Ion 0 Troponin I.cardiac [Mass/Vol] 0.02 ng/mL Normal 0-0.08 [facility] Comment on above: Performed By: #### I TROT ####Testing performed at [address] [address] Troponin I.cardiac [Mass/Vol] 0.02 ng/mL Normal 0-0.08 [facility] Comment on above: Performed By: #### I TROT ####Testing performed at [place] [id number] MAGNESIUMon 10-16-2019 Magnesium [Mass/Vol] 1.5 mg/dL Low 1.6-2.3 [facility] Comment on above: Performed By: #### A CBC, RENF, MG, RTSH, T42 ####Testing performed at [address] [address] Magnesium [Mass/Vol] 1.5 mg/dL Low [facility] MRSA SCREENon 10-16-2019 MRSA DNA JUAN+probe Ql (Unsp spec) Negative Normal NEGATIVE [facility] Comment on above: Result Comment: TEST ING PERFORMED BY PCR Performed By: #### M RSAST ####Testing performed at [address] [address] Otheron 10-16-2019 Interpretation and review of laboratory results Abnormal [facility] [employer] RENAL FUNCTION PANELon 10-15 Albumin [Mass/Vol] 3.3 G/dl Low 3.5 - 5 G/dl [facility] [employer] Calcium [Mass/Vol] 7.9 mg/dL Low [facility] Chloride [Moles/Vol] 106 mmol/L [facility] [employer] [facility] CO2 [Moles/Vol] 25 mmol/L [facility] [employer] Creatinine [Mass/Vol] 0.96 mg/dL [facility] [employer] GFR/1.73 sq M predicted among blacks MDRD (S/P/Bld) [Vol rate/Area] mL/min/{1.73_m2} ml/min/1.7 3sq.m [facility] [employer] GFR/1.73 sq M predicted among non-blacks MDRD (S/P/Bld) [Vol rate/Area] Average GFR for 60-69 years old = 85. [facility] Comment on above: Chronic Kidney disea se, GFR = <60. Kidney failure, GFR = <15. The GFR estimate is not adjusted for extreme body surface area or acute process, nor has it been validated for women or ethnic groups other than and . GFR/1.73 sq M predicted among non-blacks MDRD (S/P/Bld) [Vol rate/Area] mL/min/{1.73_m2} ml/min/1.7 3sq.m [facility] Glucose post fast [Mass/Vol] 99 mg/dL [facility] [employer] Comment on above: NORMAL <100 mg/dL PREDIABETES 101-126 mg/dL DIABETES 126 mg/dL or higher Phosphate [Mass/Vol] 4.0 mg/dL [facility] Potassium [Moles/Vol] 4.1 mmol/L [facility] Sodium [Moles/Vol] 138 mmol/L [facility] Urea nitrogen [Mass/Vol] 20 mg/dL [facility] RENAL PANEL,FASTINGon 2019 Albumin [Mass/Vol] 3.3 G/dl Low 3.5-5.0 [facility] Comment on above: Performed By: #### A CBC, RENF, MG, RTSH, T42 ####[place] [address] Creatinine [Mass/Vol] 0.96 mg/dL Normal 0.52-1.04 [facility]3] Comment on above: Performed By: #### A CBC, RENF, MG, RTSH, T42 ####Testing performed at [place] [id number] EST. GFR, >60 Normal [facility] Comment on above: Performed By: #### A CBC, RENF, MG, RTSH, T42 ####Testing performed at [place] [id number] EST. GFR,Non >60 Normal [facility] Comment on above: Performed By: #### A CBC, RENF, MG, RTSH, T42 ####Testing performed at [place] [id number] GFR/1.73 sq M predicted among non-blacks MDRD (S/P/Bld) [Vol rate/Area] Average GFR for 60-69 years old = 85. Normal [facility] Comment on above: Result Comment: Valuer tai Kidney disease, GFR = <60. Kidney failure, GFR = <15. The GFR estimate is not adjusted for extreme body surface area or acute process, nor has it been validated for women or ethnic groups other than and . Performed By: #### A CBC, RENF, MG, RTSH, T42 ####[place] [address] PHOSPHOROUS 4.0 MG/DL Normal 2.5-4.5 [facility] Comment on above: Performed By: #### A CBC, RENF, MG, RTSH, T42 ####Testing performed at [address] [address] Urea nitrogen [Mass/Vol] 20 mg/dL Normal 7-20 [facility] Comment on above: Performed By: #### A CBC, RENF, MG, RTSH, T42 ####Testing performed at [address] [address] Calcium [Mass/Vol] 7.9 mg/dL Low 8.4-10.2 [facility] Comment on above: Performed By: #### A CBC, RENF, MG, RTSH, T42 ####Testing performed at [address] [address] Chloride [Moles/Vol] 106 mmol/L Normal 98-107 [facility] Comment on above: Performed By: #### A CBC, RENF, MG, RTSH, T42 ####Testing performed at [address] [address] CO2 [Moles/Vol] 25 mmol/L Normal 22-30 [facility] Comment on above: Performed By: #### A CBC, RENF, MG, RTSH, T42 ####Testing performed at [address] [address] Glucose [Mass/Vol] 99 mg/dL Normal 70-100 [facility] Comment on above: Result Comment: NORMAL <100 mg/dL PREDIABETES 101-126 mg/dL DIABETES 126 mg/dL or higher Performed By: #### A CBC, RENF, MG, RTSH, T42 ####Testing performed at [address] [address] Potassium [Moles/Vol] 4.1 mmol/L Normal 3.5-5.1 [facility]3] Comment on above: Performed By: #### A CBC, RENF, MG, RTSH, T42 ####Testing performed at [address] [address] Sodium [Moles/Vol] 138 mmol/L Normal 136-145 [facility] Comment on above: Performed By: #### A CBC, RENF, MG, RTSH, T42 ####[place] [address] SCREEN: MRSA ONLY, NARES (IS OLATION SCREEN)on 10-16-2019 MRSA isol Org specific cx Ql (Nose) Negative NEGATIVE [facility] STAPHYOCOCCUS AUREUS BY PCR Negative NEGATIVE [facility] Comment on above: TESTING PERFORMED BY PCR T4 FREEon 10-16-2019 Free T4 [Mass/Vol] 0.80 ng/dL [facility] TROPONINon 10-16-2019 Troponin I.cardiac [Mass/Vol] 0.02 ng/mL 0 - 0.08 ng/mL [facility] Troponin I.cardiac [Mass/Vol] 0.02 ng/mL 0 - 0.08 ng/mL [facility] TSH W/FT4 REFLEXon 0 TSH Qn 5.779 m[IU]/L [facility] [facility] TSH,REFLEX FREE T4on 020 TSH,REFLEX FREE T4 5.779 uIU/ML High 0.45-5.33 [facility] Comment on above: Performed By: #### A CBC, RENF, MG, RTSH, T42 ####[place] [address] CBCon 10-15-2019 ABSOLUTE BAS 0.1 10*3/uL Normal 0.0-0.2 [facility] Comment on above: Performed By: #### A CBC, ITROT, CMPF #### [place] [address] ABSOLUTE EOS 0.40 10*3/uL Normal 0.0-0.7 [facility] Comment on above: Performed By: #### A CBC, ITROT, CMPF #### [place] [address] ABSOLUTE NEUTROPHIL COUNT 8.2 10*3/uL High 1.4-6.5 [facility] Comment on above: Performed By: #### A CBC, ITROT, CMPF #### [place] [address] Basophils/100 WBC (Bld) 0.5 % Normal 0.0-2.0 [facility] Comment on above: Performed By: #### A CBC, ITROT, CMPF #### Testing performed at [address] [address] DTYPE AUTO DIFF Normal [facility] Comment on above: Performed By: #### A CBC, ITROT, CMPF #### Testing performed at [address] [address] Eosinophils/100 WBC (Bld) 3.2 % Normal 0.0-11.0 [facility] Comment on above: Performed By: #### A CBC, ITROT, CMPF #### Testing performed at [address] [address] Lymphocytes (Bld) [#/Vol] 2.20 10*3/uL Normal 1.2-3.4 [facility] Comment on above: Performed By: #### A CBC, ITROT, CMPF #### Testing performed at [address] [address] Lymphocytes/100 WBC (Bld) 19.1 % Low 20.0-55.0 [facility] Comment on above: Performed By: #### A CBC, ITROT, CMPF #### Testing performed at [address] [address] Monocytes (Bld) [#/Vol] 0.7 10*3/uL Normal 0.0-0.7 [facility] Comment on above: Performed By: #### A CBC, ITROT, CMPF #### Testing performed at [address] [address] Monocytes/100 WBC (Bld) 6.0 % Normal 0.0-10.0 [facility] Comment on above: Performed By: #### A CBC, ITROT, CMPF #### Testing performed at [address] [address] Neutrophils/100 WBC (Bld) 71.2 % Normal 37.0-75.0 [facility] Comment on above: Performed By: #### A CBC, ITROT, CMPF #### Testing performed at [address] [address] Erythrocyte distribution width (RBC) [Ratio] 15.8 % High 11.5-14.5 [facility] Comment on above: Performed By: #### A CBCRAJINDER CMPF #### Testing performed at [address] [address] Hematocrit (Bld) [Volume fraction] 34.1 % Low 36.0-48.0 [facility] Comment on above: Performed By: #### A CBCRAJINDER CMPF #### Testing performed at [address] [address] Hemoglobin (Bld) [Mass/Vol] 11.4 g/dL Low 12.0-16.0 [facility] Comment on above: Performed By: #### A CBCRAJINDER CMPF #### Testing performed at [address] [address] MCH (RBC) [Entitic mass] 31.7 pg Normal 26.0-35.0 [facility] Comment on above: Performed By: #### A CBCRAJINDER CMPF #### Testing performed at [address] [address] MCHC (RBC) [Mass/Vol] 33.4 g/dL Normal 27.0-37.0 [facility]3] Comment on above: Performed By: #### A CBCRAJINDER CMPF #### Testing performed at [address] [address] MCV (RBC) [Entitic vol] 94.9 fL Normal 80.0-100.0 [facility] Comment on above: Performed By: #### A CBCRAJINDER CMPF #### Testing performed at [address] [address] Platelet mean volume (Bld) [Entitic vol] 7.5 fL Normal 7.4-11.0 [facility] Comment on above: Performed By: #### A CBCRAJINDER CMPF #### Testing performed at [address] [address] Platelets (Bld) [#/Vol] 372 10*3/uL Normal 130.0-400. 0 [facility] Comment on above: Performed By: #### A CBC, ITROT, CMPF #### Testing performed at [address] [address] RBC (Bld) [#/Vol] 3.60 10*6/uL Low 4.0-5.4 [facility] Comment on above: Performed By: #### A CBC, ITROT, CMPF #### Testing performed at [address] [address] WBC (Bld) [#/Vol] 11.4 10*3/uL High 3.6-11.0 [facility] Comment on above: Performed By: #### A CBC, ITROT, CMPF #### Testing performed at [address] [address] CBC, EDIF, PLATELETon 2019 ABSOLUTE BASOPHIL COUNT 0.1 10*3/uL 0 - 0.2 10*3/uL [facility] Basophils/100 WBC (Bld) 0.5 % 0 - 2 % [facility] Differential cell count method Nom (Bld) AUTO DIFF % [facility] Eosinophils (Bld) [#/Vol] 0.40 10*3/uL 0 - 0.7 10*3/uL [facility] Eosinophils/100 WBC (Bld) 3.2 % 0 - 11 % [facility] Erythrocyte distribution width (RBC) [Ratio] 15.8 % High 11.5 - 14.5 % [facility] Hematocrit (Bld) [Volume fraction] 34.1 % Low 36 - 48 % [facility] Hemoglobin (Bld) [Mass/Vol] 11.4 g/dL Low [facility] Lymphocytes (Bld) [#/Vol] 2.20 10*3/uL 1.2 - 3.4 10*3/uL [facility] Lymphocytes/100 WBC (Bld) 19.1 % Low 20 - 55 % [facility] MCH (RBC) [Entitic mass] 31.7 pg 26 - 35 PG [facility] MCHC (RBC) [Mass/Vol] 33.4 g/dL [facility] MCV (RBC) [Entitic vol] 94.[address] [facility] Monocytes (Bld) [#/Vol] 0.7 10*3/uL 0 - 0.7 10*3/uL [facility] Monocytes/100 WBC (Bld) 6.0 % 0 - 10 % [facility] Neutrophils (Bld) [#/Vol] 8.2 10*3/uL High 1.4 - 6.5 10*3/uL [facility] Neutrophils/100 WBC (Bld) 71.2 % 37 - 75 % [facility] Platelet mean volume (Bld) [Entitic vol] 7.5 fL [facility] Platelets (Bld) [#/Vol] 372 10*3/uL 130 - 400 10*3/uL [facility] RBC (Bld) [#/Vol] 3.60 10*6/uL Low 4 - 5.4 10*6/uL [facility] WBC (Bld) [#/Vol] 11.4 10*3/uL High 3.6 - 11 10*3/uL [facility] CMP FASTINGon 10-15-2019 A:G RATIO 1.5 RATIO Normal 1.3-2.2 [facility] Comment on above: Performed By: #### A CBC, ITROT, CMPF #### Testing performed at [address] [address] Albumin [Mass/Vol] 4.1 G/dl Normal 3.5-5.0 [facility] Comment on above: Performed By: #### A CBC, ITROT, CMPF #### Testing performed at [address] [address] ALP [Catalytic activity/Vol] 50 U/L Normal 38-126 [facility] Comment on above: Performed By: #### A CBC, ITROT, CMPF #### Testing performed at [address] [address] ALT [Catalytic activity/Vol] 16 U/L Normal 14-54 [facility] Comment on above: Performed By: #### A CBC, ITROT, CMPF #### Testing performed at [address] [address] AST [Catalytic activity/Vol] 16 U/L Normal 15-41 [facility] Comment on above: Performed By: #### A CBC, ITROT, CMPF #### Testing performed at [address] [address] Bilirubin [Mass/Vol] 0.4 mg/dL Normal 0.2-1.2 [facility] Comment on above: Performed By: #### A CBC ITROT CMPF #### Testing performed at [address] [address] Creatinine [Mass/Vol] 1.58 mg/dL High 0.52-1.04 [facility]3] Comment on above: Performed By: #### A CBC ITROT CMPF #### Testing performed at [address] [address] EST. GFR, 42 ml/min/1.73sq.m [facility] Comment on above: Performed By: #### A CBCAIMEEOT CMPF #### Testing performed at [address] [address] EST. GFR,Non 35 ml/min/1.73sq.m [facility] Comment on above: Performed By: #### A CBC ITROT CMPF #### Testing performed at [address] [address] GFR/1.73 sq M predicted among non-blacks MDRD (S/P/Bld) [Vol rate/Area] Average GFR for 60-69 years old = 85. Normal [facility] Comment on above: Result Comment: Valuer tai Kidney disease, GFR = <60. Kidney failure, GFR = <15. The GFR estimate is not adjusted for extreme body surface area or acute process, nor has it been validated for women or ethnic groups other than and . Performed By: #### A CBC ITROT, CMPF #### Testing performed at [address] [address] Protein [Mass/Vol] 6.8 g/dL Normal 6.3-8.2 [facility] Comment on above: Performed By: #### A CBC ITROT CMPF #### Testing performed at [address] [address] Urea nitrogen [Mass/Vol] 31 mg/dL High 7-20 [facility] Comment on above: Performed By: #### A CBC ITROT CMPF #### Testing performed at [address] [place] [address] Calcium [Mass/Vol] 8.6 mg/dL Normal 8.4-10.2 [facility] Comment on above: Performed By: #### A RAJINDER ESPINOSA CMPF #### Testing performed at [address] [address] Chloride [Moles/Vol] 100 mmol/L Normal 98-107 [facility] Comment on above: Performed By: #### A CBCRAJINDER CMPF #### Testing performed at [address] [address] CO2 [Moles/Vol] 22 mmol/L Normal 22-30 [facility] Comment on above: Performed By: #### A RAJINDER ESPINOSA CMPF #### Testing performed at [address] [address] Glucose [Mass/Vol] 78 mg/dL Normal 70-100 [facility] Comment on above: Result Comment: NORMAL <100 mg/dL PREDIABETES 101-126 mg/dL DIABETES 126 mg/dL or higher Performed By: #### A CBCRAJINDER CMPF #### Testing performed at [address] [address] Potassium [Moles/Vol] 4.5 mmol/L Normal 3.5-5.1 [facility]3] Comment on above: Performed By: #### A CBCRAJINDER CMPF #### Testing performed at [address] [address] Sodium [Moles/Vol] 132 mmol/L Low 136-145 [facility] Comment on above: Performed By: #### A CBCAIMEEOT CMPF #### Testing performed at [address] [address] COMPREHENSIVE METABOLIC PANE [place] 10-15-2019 Albumin [Mass/Vol] 4.1 G/dl 3.5 - 5 G/dl [facility] Albumin/Globulin [Mass ratio] 1.5 {ratio} [facility] ALP [Catalytic activity/Vol] 50 U/L [facility] ALT [Catalytic activity/Vol] 16 U/L [facility] AST [Catalytic activity/Vol] 16 U/L [facility] Bilirubin [Mass/Vol] 0.4 mg/dL [facility] Calcium [Mass/Vol] 8.6 mg/dL [facility] Chloride [Moles/Vol] 100 mmol/L [facility] CO2 [Moles/Vol] 22 mmol/L [facility] Creatinine [Mass/Vol] 1.58 mg/dL High [facility] GFR/1.73 sq M predicted among blacks MDRD (S/P/Bld) [Vol rate/Area] 42 mL/min/{1.73_m2} ml/min/1.7 3sq.m [facility] GFR/1.73 sq M predicted among non-blacks MDRD (S/P/Bld) [Vol rate/Area] Average GFR for 60-69 years old = 85. [facility] Comment on above: Chronic Kidney disea se, GFR = <60. Kidney failure, GFR = <15. The GFR estimate is not adjusted for extreme body surface area or acute process, nor has it been validated for women or ethnic groups other than and . GFR/1.73 sq M predicted among non-blacks MDRD (S/P/Bld) [Vol rate/Area] 35 mL/min/{1.73_m2} ml/min/1.7 3sq.m [facility] Glucose post fast [Mass/Vol] 78 mg/dL [facility] Comment on above: NORMAL <100 mg/dL PREDIABETES 101-126 mg/dL DIABETES 126 mg/dL or higher Potassium [Moles/Vol] 4.5 mmol/L [facility] Protein [Mass/Vol] 6.8 g/dL [facility] Sodium [Moles/Vol] 132 mmol/L Low [facility] Urea nitrogen [Mass/Vol] 31 mg/dL High [facility] FAX REQUESTon 10-15-2019 FAX TO [phone] Normal [facility] Comment on above: Performed By: #### F X #### Testing performed at [facility] [address] [place] [address] #### LCELCP #### Testing performed at [facility] [address] [place] [address] [place] [address] ISTAT TROPONIN Ion 0 Troponin I.cardiac [Mass/Vol] 0.05 ng/mL Normal 0-0.08 [facility] Comment on above: Performed By: #### I TROT #### Testing performed at [address] [address] Troponin I.cardiac [Mass/Vol] 0.03 ng/mL Normal 0-0.08 [facility] Comment on above: Performed By: #### A CBC, ITROT, CMPF #### Testing performed at [address] [address] Otheron 10-15-2019 Interpretation and review of laboratory results Abnormal [facility] POCT GLUCOSEon 10-15-2019 Glucose [Mass/Vol] 124 mg/dL Abnormal 70 - 99 mg/dL [facility] Interpretation and review of laboratory results Abnormal [facility] TROPONINon 10-15-2019 Troponin I.cardiac [Mass/Vol] 0.05 ng/mL 0 - 0.08 ng/mL [facility] Troponin I.cardiac [Mass/Vol] 0.03 ng/mL 0 - 0.08 ng/mL [facility] URINALYSIS, MACROon 10-15-19 20 Bilirubin Ql (U) Negative NEGATIVE [facility] Clarity (U) CLEAR CLEAR [facility] Color (U) YELLOW YELLOW [facility] Glucose Test strip (U) [Mass/Vol] Negative NEGATIVE mg/dl [facility] Hemoglobin Ql (U) Negative NEGATIVE [facility] Ketones (U) [Mass/Vol] Negative NEGAT ANN mg/dl [facility] Leukocyte esterase Test strip Ql (U) Negative NEGATIVE [facility] Nitrite Ql (U) Negative NEGATIVE [facility] pH (U) 5.5 [pH] [facility] Protein Ql (U) Negative NEGATIVE mg/dl [facility] Specific gravity (U) [Rel density] 1.010 [facility] Urobilinogen (U) [Mass/Vol] 0.2 [facility] URINE MACROSCOPICon 10-15-19 20 Bilirubin Ql (U) Negative Normal NEGATIVE [facility] Comment on above: Performed By: #### U MAC #### Testing performed at [address] [address] Clarity (U) CLEAR Normal CLEAR [facility] Comment on above: Performed By: #### U MAC #### Testing performed at [address] [address] Color (U) YELLOW Normal YELLOW [facility] Comment on above: Performed By: #### U MAC #### Testing performed at [address] [address] Glucose Ql (U) Negative Normal NEGATIVE [facility] Comment on above: Performed By: #### U MAC #### Testing performed at [address] [address] pH (U) 5.5 [pH] Normal 5.0-7.0 [facility] Comment on above: Performed By: #### U MAC #### Testing performed at [address] [address] Protein (U) [Mass/Vol] Negative Normal NEGATIVE [facility] Comment on above: Performed By: #### U MAC #### Testing performed at [address] [address] URINE HEMOGLOBIN Negative Normal NEGATIVE [facility] Comment on above: Performed By: #### U MAC #### Testing performed at [address] [address] URINE KETONE Negative Normal NEGATIVE [facility] Comment on above: Performed By: #### U MAC #### Testing performed at [address] [address] URINE LEUKOTEST Negative Normal NEGATIVE [facility] Comment on above: Performed By: #### U MAC #### Testing performed at [address] [address] URINE NITRATES Negative Normal NEGATIVE [facility] Comment on above: Performed By: #### U MAC #### Testing performed at [address] [address] URINE SPEC GRAVITY 1.010 Normal 1.010-1.[address] [place] [address] Comment on above: Performed By: #### U MAC #### Testing performed at [address] [address] Urobilinogen Qn (U) 0.2 {Loyd'U}/dL Normal 0.2-1.0 [facility] Comment on above: Performed By: #### U MAC #### Testing performed at [address] [address] XR CHEST PA AND LATERALon TSH Qn [...] IMPRESSION: 1. No acute pulmonary abnormality. Normal [facility] IMPRESSION: 1. No ac [place] pulmonary abnormality. [facility] User, Interfaces - 10/15/2019 2:50 PM [...] IMPRESSION IMPRESSION: 1. No acute pulmonary abnormality. [facility] EXAM: XR CHEST PA AN D [...] thoracic spine. Surgical clips within the abdomen. [facility] ED NOTEon 08-09-2019 ED NOTE HNO ID: [id number] Author: Ellen (Rn) WU Ramos Service: Emergency Medicine Author Type: Registered Nurse Type: ED Notes Filed: 08/09/2019 5:00 PM Note Text: Pt from home with reports of Sores on her head. States she put peroxide on them last night to try to heal them. States when she woke up this morning her eye lids were swollen. Normal [facility] ED PROV NOTEon 08-09-2019 ED PROV NOTE HNO ID: [id number] Author: Kassandra Chan DO Service: Emergency Medicine Author Type: Physician Type: ED Provider Notes Filed: 08/09/2019 9:02 PM Note Text: ED Provider Note Patient Name: Asif Dela Cruz SERVICE DATE: 08/09/19 History Patient presents with: Derm Problem Edema Asif Dela Cruz is a 64 year old [...] - Hypertension - Left hip pain - FDC (current) use of non-steroidal anti-inflammatories (nsaid) - [...] is stable. SIGNATURE: Kassandra Chan, DO Kassandra Chan, 08/09/192101 Normal [facility] US DOPPLER ARTERIAL LEGS MARK ATERALon 06-05-2019 US DOPPLER ARTERIAL LEGS BILATERAL EXAM: US DOPPLER ARTERIAL LEGS BILATERAL HISTORY: Claudication and PAD COMPARISON: None. TECHNIQUE: Resting ABIs and segmental pressures were obtained. FINDINGS: Right resting MATILDE 1.17. Left resting MATILDE 1.06. Segmental pressures were obtained. No gradients were noted. Waveforms multiphasic. IMPRESSION: Normal resting ABIs. No pressure gradients with segmental pressures. Normal [facility] IMPRESSION: Normal r esting ABIs. No pressure gradients with segmental pressures. [facility] EXAM: US DOPPLER ART ERIAL LEGS BILATERAL HISTORY: Claudication and PAD COMPARISON: None. TECHNIQUE: Resting ABIs and segmental pressures were obtained. FINDINGS: Right resting MATILDE 1.17. Left resting MATILDE 1.06. Segmental pressures were obtained. No gradients were noted. Waveforms multiphasic. [facility] User, Interfaces - 06/05/2019 2:48 PM EST EXAM: US DOPPLER ARTERIAL LEGS BILATERAL HISTORY: Claudication and PAD COMPARISON: None. TECHNIQUE: Resting ABIs and segmental pressures were obtained. FINDINGS: Right resting MATILDE 1.17. Left resting MATILDE 1.06. Segmental pressures were obtained. No gradients were noted. Waveforms multiphasic. IMPRESSION IMPRESSION: Normal resting ABIs. No pressure gradients with segmental pressures. [facility] FASTINGon 05-17-2019 Creatinine [Mass/Vol] 1.00 mg/dL Normal 0.52-1.04 [facility]3] Comment on above: Performed By: #### B MPF #### Testing performed at [address] [address] EST. GFR, >60 Normal [facility] Comment on above: Performed By: #### B MPF #### Testing performed at [address] [address] EST. GFR,Non 60 ml/min/1.73sq.m Normal [facility] Comment on above: Performed By: #### B MPF #### Testing performed at [address] [address] GFR/1.73 sq M predicted among non-blacks MDRD (S/P/Bld) [Vol rate/Area] Average GFR for 60-69 years old = 85. Normal [facility] Comment on above: Result Comment: Valuer tai Kidney disease, GFR = <60. Kidney failure, GFR = <15. The GFR estimate is not adjusted for extreme body surface area or acute process, nor has it been validated for women or ethnic groups other than and . Performed By: #### B MPF #### Testing performed at [address] [address] Urea nitrogen [Mass/Vol] 21 mg/dL High 7-20 [facility] Comment on above: Performed By: #### B MPF #### Testing performed at [address] [address] Anion gap [Moles/Vol] 14 mmol/L Normal 8-16 [facility]3] Comment on above: Performed By: #### B MPF #### Testing performed at [address] [address] Calcium [Mass/Vol] 9.5 mg/dL Normal 8.4-10.2 [facility] Comment on above: Performed By: #### B MPF #### Testing performed at [address] [address] Chloride [Moles/Vol] 103 mmol/L Normal 98-107 [facility] Comment on above: Performed By: #### B MPF #### Testing performed at [address] [address] CO2 [Moles/Vol] 21 mmol/L Low 22-30 [facility] Comment on above: Performed By: #### B MPF #### Testing performed at [address] [address] Glucose [Mass/Vol] 117 mg/dL High 70-100 [facility] Comment on above: Result Comment: NORMAL <100 mg/dL PREDIABETES 101-126 mg/dL DIABETES 126 mg/dL or higher Performed By: #### B MPF #### Testing performed at [address] [address] Potassium [Moles/Vol] 5.0 mmol/L Normal 3.5-5.1 [facility]3] Comment on above: Performed By: #### B MPF #### Testing performed at [address] [address] Sodium [Moles/Vol] 138 mmol/L Normal 136-145 [facility] Comment on above: Performed By: #### B MPF #### Testing performed at [address] [address] LARGE JOINT INJECTION: R sub acromial bursaon [...] usual sterile fashion with Betadine and alcohol. [facility] LARGE JOINT INJECTION: L ricardo rodriguesr trochanteric [...] usual sterile fashion with Betadine and alcohol. [facility] 01-25-2019 IMPRESSION: 1. Starr l ultrasound of the kidneys and bladder. No mass is seen. No calcifications or hydronephrosis. 2. Trace postvoid residual is noted. [facility] EXAM: US RENAL RETROPERITONEAL, US PELVIS LIMITED [...] minimal post void residual of 10 mL. [facility] User, Interfaces - 01/25/2019 4:15 PM EDT [...] hydronephrosis. 2. Trace postvoid residual is noted. [facility] CNCOon 12-28-2018 CNCO Letter Text Normal [facility] Hep C Abon 12-22-2018 Hep C Ab <0.1 Normal 0.0-0.9 [facility] Comment on above: Result Comment: Nega tive: < 0.8 Indeterminate: 0.8 - 0.9 Positive: > 0.9 The CDC recommends that a positive HCV antibody result be followed up with a HCV Nucleic Acid Amplification test (584192). Performed At: [facility] [id number] Jake Montero PhD Ph:[phone] Performed By: #### 2 [id number] #### KATHERINE Jo [address] [place], [place] [id number] US Abdomen Completeon 2018 US Abdomen Complete Exam Date/Time: 12/21/2018 09:15 EDT Reason for Exam: DIFFUSE ABD PAIN;Abdominal pain Report STUDY: US Abdomen Complete; 12/21/2018 9:15 am INDICATION: 63 y/o F with Abdominal pain. COMPARISON: None. ACCESSION NUMBER(S): [id number] ORDERING CLINICIAN: Yamila Hayden TECHNIQUE: Routine ultrasound [...] am Signed by: Mark Dove MD Technologist: BS Normal [facility] Auto Diffon 12-21-2018 Basophils (Bld) [#/Vol] 0.1 E3/mcL Normal 0.0-0.2 [facility] Comment on above: Order Comment: Order Added by Tracy Expert. Performed By: #### 2 [id number] #### KATHERINE RemHemo [address] [place] [address] Basophils/100 WBC (Bld) 0.6 % Normal 0.0-2.0 [facility] Comment on above: Order Comment: Order Added by Tracy Expert. Performed By: #### 2 [id number] #### KATHERINE RemHemo [address] [place] [address] Eos Absolute 0.3 E3/mcL Normal 0.0-0.7 [facility] Comment on above: Order Comment: Order Added by Tracy Expert. Performed By: #### 2 [id number] #### KATHERINE RemHemo [address] [place] [address] Eosinophils/100 WBC (Bld) 2.9 % Normal 0.0-11.0 [facility] Comment on above: Order Comment: Order Added by Tracy Expert. Performed By: #### 2 [id number] #### KATHERINE RemHemo [address] [place] [address] Lymphocytes (Bld) [#/Vol] 1.7 E3/mcL Normal 1.2-3.4 [facility] Comment on above: Order Comment: Order Added by Tracy Expert. Performed By: #### 2 [id number] #### KATHERINE RemHemo [address] [place] [address] Lymphocytes/100 WBC (Bld) 17.5 % Low 20.0-55.0 [facility] Comment on above: Order Comment: Order Added by Tracy Expert. Performed By: #### 2 [id number] #### KATHERINE RemHemo [address] [place] [address] Beckham Absolute 0.6 E3/mcL Normal 0.0-0.7 [facility] Comment on above: Order Comment: Order Added by Tracy Expert. Performed By: #### 2 [id number] #### KATHERINE RemHemo [address] [place] [address] Monocytes/100 WBC (Bld) 6.4 % Normal 0.0-10.0 [facility] Comment on above: Order Comment: Order Added by Discern Expert. Performed By: #### 2 [id number] #### KATHERINE StilesHemo [address] [place] [address] Neutro Absolute 7.0 E3/mcL High 1.4-6.5 [facility] Comment on above: Order Comment: Order Added by Discern Expert. Performed By: #### 2 [id number] #### KATHERINE RemHemo [address] [place] [address] Neutro Auto 72.6 % Normal 37.0-75.0 [facility] Comment on above: Order Comment: Order Added by Discern Expert. Performed By: #### 2 [id number] #### KATHERINE StilesHemo [address] [place] [address] CBC w/ Auto Diffon 9 Erythrocyte distribution width (RBC) [Ratio] 14.7 % High 11.5-14.5 [facility] Comment on above: Performed By: #### 2 [id number] #### KATHERINE RemHemo [address] [place] [address] Hematocrit (Bld) [Volume fraction] 36.1 % Normal 36.0-48.0 [facility] Comment on above: Performed By: #### 2 751599 #### KATHERINE StilesHemo [address] [place] [address] Hemoglobin (Bld) [Mass/Vol] 12.1 g/dL Normal 12.0-16.0 [facility] Comment on above: Performed By: #### 2 [id number] #### KATHERINE RemHemo [address] [place] [address] MCH (RBC) [Entitic mass] 31.3 pg High 27.0-31.0 [facility] Comment on above: Performed By: #### 2 132009 #### KATHERINE RemHemo [address] [place] [address] MCHC (RBC) [Mass/Vol] 33.4 g/dL Normal 33.0-37.0 [facility] Comment on above: Performed By: #### 2 249494 #### KATHERINE RemHemo [address] [place] [address] MCV (RBC) [Entitic vol] 93.9 fL Normal 78.0-100.0 [facility] Comment on above: Performed By: #### 2 716843 #### KATHERINE RemHemo [address] [place] [address] Platelet mean volume (Bld) [Entitic vol] 7.6 fL Normal 7.4-11.0 [facility] Comment on above: Performed By: #### 2 604522 #### KATHERINE RemHemo [address] [place] [address] Platelets (Bld) [#/Vol] 430 E3/mcL High 130-400 [facility] Comment on above: Performed By: #### 2 342545 #### KATHERINE RemHemo [address] [place] [address] RBC (Bld) [#/Vol] 3.85 E6/mcL Low 3.90-5.[address] [facility] Comment on above: Performed By: #### 2 367236 #### KATHERINE RemHemo [address] [place] [address] WBC (Bld) [#/Vol] 9.6 E3/mcL Normal 3.6-11.0 [facility] Comment on above: Performed By: #### 2 323646 #### KATHERINE RemHemo [address] [place] [address] CMPon 12-21-2018 Albumin [Mass/Vol] 4.5 g/dL Normal 3.4-5.[address] [facility] Comment on above: Performed By: #### 2 993286 #### KATHERINE RemHemo [address] [place] [address] Albumin/Globulin [Mass ratio] 1.6 {ratio} Normal 1.1-1.9 [facility] Comment on above: Performed By: #### 2 613867 #### KATHERINE RemHemo [address] [place] [address] Alk Phos 54 Int._Unit/L Normal 33-136 [facility] Comment on above: Performed By: #### 2 103629 #### KATHERINE StilesHemo [address] [place] [address] ALT [Catalytic activity/Vol] 9 Int._Unit/L Normal 7-45 [facility] Comment on above: Performed By: #### 2 156353 #### KATHERINE StilesHemo [address] [place] [address] Anion gap [Moles/Vol] 15 mmol/L Normal 10-20 [facility] Comment on above: Performed By: #### 2 770310 #### KATHERINE StilesHemo [address] [place] [address] AST [Catalytic activity/Vol] 9 Int._Unit/L Normal 9-39 [facility] Comment on above: Performed By: #### 2 095140 #### KATHERINE StilesHemo [address] [place] [address] Bili Total 0.41 mg/dL Normal 0.00-1.20 [facility] Comment on above: Performed By: #### 2 004557 #### KATHERINE StilesHemo [address] [place] [address] Calcium [Mass/Vol] 9.7 mg/dL Normal 8.6-10.[address] [facility] Comment on above: Performed By: #### 2 533930 #### KATHERINE StilesHemo [address] [place] [address] Chloride [Moles/Vol] 101 mmol/L Normal 98-[address] [facility] Comment on above: Performed By: #### 2 205654 #### KATHERINE StilesHemo [address] [place] [address] CO2 [Moles/Vol] 27.0 mmol/L Normal 21.0-32.0 [facility] Comment on above: Performed By: #### 2 188616 #### KATHERINE RemHemo [address] [place] [address] Creatinine [Mass/Vol] 2.0 mg/dL High 0.5-1.1 [facility] Comment on above: Performed By: #### 2 446195 #### KATHERINE RemHemo [address] [place] [address] Globulin (S) [Mass/Vol] 3.0 g/dL Normal 2.0-4.0 [facility] Comment on above: Performed By: #### 2 167061 #### KATHERINE StilesHemo [address] [place] [address] Glucose [Mass/Vol] 124 mg/dL High 70-[address] [facility] Comment on above: Performed By: #### 2 889511 #### KATHERINE StilesHemo [address] [place] [address] Potassium [Moles/Vol] 5.1 mmol/L Normal 3.5-5.3 [facility] Comment on above: Performed By: #### 2 346575 #### KATHERINE StilesHemo [address] [place] [address] Protein [Mass/Vol] 7.3 g/dL Normal 6.4-8.[address] [facility] Comment on above: Performed By: #### 2 631030 #### KATHERINE StilesHemo [address] [place] [address] Sodium [Moles/Vol] 138 mmol/L Normal 136-[address] [facility] Comment on above: Performed By: #### 2 828892 #### KATHERINE StilesHemo [address] [place] [address] Urea nitrogen [Mass/Vol] 29 mg/dL High 6-23 [facility] Comment on above: Performed By: #### 2 182718 #### KATHERNIE StilesHemo [address] [place] [address] Urea nitrogen/Creatinine [Mass ratio] 14.5 ratio Normal 5.4-30.0 [facility] Comment on above: Performed By: #### 2 063052 #### KATHERINE RemHemo [address] [place] [address] [id number] 12-21-2018 HbA1c (Bld) [Mass fraction] 6.8 % High 4.0-6.3 [facility] Comment on above: Performed By: #### 2 390528 #### KATHERINE StilesHemo [address] [place] [address] Lipase Levelon 12-21-2018 Lipase Lvl 13 Int._Unit/L Normal 9-82 [facility] Comment on above: Performed By: #### 2 883447 #### KATHERINE StilesHemo [address] [place] [address] Lipid Profileon 12-21-2018 Cholesterol [Mass/Vol] 187 mg/dL Normal 0-199 [facility] Comment on above: Result Comment: TOTA L CHOLEESTEROL: <200 NORMAL 200 - 239 BORDERLINE HIGH >240 HIGH Performed By: #### 2 341158 #### KATHERINE Mcclellando [address] [place] [address] Cholesterol in HDL [Mass/Vol] 44 mg/dL Normal 40-60 [facility] Comment on above: Performed By: #### 2 696621 #### KATHERINE StilesHemo [address] [place] [address] Cholesterol in LDL [Mass/Vol] 83 mg/dL Normal 0-130 [facility] Comment on above: Result Comment: <100 OPTIMAL 100-129 NEAR / ABOVE OPTIMAL 130-159 BORDERLINE HIGH 160-189 HIGH >190 VERY HIGH CALC LDL NOT VALID WHEN TRIGLYCERIDE IS >400 MG/DL Performed By: #### 2 473053 #### KATHERINE StilesHemo [address] [place] [address] Cholesterol in VLDL [Mass/Vol] 60 mg/dL High 0-40 [facility] Comment on above: Performed By: #### 2 320060 #### KATHERINE StilesHemo [address] [place] [address] Triglyceride [Mass/Vol] 302 mg/dL High 0-149 [facility] Comment on above: Result Comment: AGE DESIRABLE BORDERLINE HIGH 91 D - 9 Y 0 - 74 75 - 99 > 100 10 - 19 Y 0 - 89 90 - 129 > 130 20 -24 Y 0 - 114 115 - 149 > 150 > 25 0 - 149 150 - 199 200 - 499 Performed By: #### 2 469833 #### KATHERINE StilesHemo [address] [place] [address] TSHon 12-21-2018 TSH Qn 6.66 mcIU/mL High 0.30-5.60 [facility] Comment on above: Performed By: #### 2 694764 #### KATHERINE StilesHemo [address] [place] [address] Valproic Acidon 12-21-2018 Valpro Acid Lvl 25 microgram/mL Low 50-[address] [facility] Comment on above: Performed By: #### 2 769358 #### KATHERINE StilesHemo [facility] [place] [address] Vit B12on 12-21-2018 Cobalamin (Vitamin B12) [Mass/Vol] 268 pg/mL Normal 180-914 [facility] Comment on above: Performed By: #### 2 061091 #### KATHERINE StilesHemo [facility] [place] [address] eGFRon 12-21-2018 GFR/1.73 sq M predicted among non-blacks MDRD (S/P/Bld) [Vol rate/Area] 30 mL/min/1.73 m2 Normal [facility] Comment on above: Order Comment: Order added by Discern Expert. Performed By: #### 2 814377 #### KATHERINE StilesHemo [facility] [place] [address] GFR/1.73 sq M predicted among non-blacks MDRD (S/P/Bld) [Vol rate/Area] 25 mL/min/1.73 m2 [facility] Comment on above: Order Comment: Order added by Discern Expert. Performed By: #### 2 146890 #### KATHERINE StilesHemo [facility] [place] [address] Fecal Occult Bld Tston 11-21 Immuno FOB Negative Normal Negative [facility] Comment on above: Result Comment: This test was developed and its performance characteristics determined by [facility]'s [facility]ology [facility] [place] ([facility]). It has not been cleared or approved by the FDA. [facility] is regulated under CLIA as qualified to perform high complexity testing. This test is used for clinical purposes. It should not be regarded as investigational or for research. Performed By: #### I FOBT #### [facility] [address], [place] [address] CNOVSPon 11-15-2018 CNOVSP Visit (SP) Office (H [place]) ASIF DELA CRUZ ([id number]) 1955 [place] Date Time Provider Department 11/15/18 1:00 PM EMMA HILARIO (COMPUTATIONAL PHYSICIST) HEMAMS During your visit today, we recorded the following information about you: Temperature Pulse Respiration Blood pressure 97.1 degrees 51/minute 16/minute 140/56 Weight Height 62.3 kg 1.523 m Emma Hilario APRN.CNP 11/23/2018 1:11 PM Signed REASON FOR VISIT: Asif Dela Cruz is a very pleasant 62 [...] tablet 1 po bid PRN - Tizan-M Vw-Rlxv-AUQ-Sophia-Men-Al (COMFORT PAC-TIZANIDINE) 4 mg kit - GABAPENTIN [...] Abs Lymph 1.00 - 4.00 k/uL 2.75 Beckham% % 6.9 Abs Beckham <0.87 k/uL 0.63 Eosin% % 4.7 Abs [...] Visit None PLAN: MGUS, IgG monoclonal with Ehrenfeld light chain specificity, too small to quantify [...] CC: Yamila Hayden Referring Provider: YAMILA HAYDEN [[id number]] Allergies As of Date: 11/15/2018 Noted Allergy Reaction DULOXETINE HCL 02/26/2018 16 - Unknown SEASONAL ALLERGIES 04/18/2018 14 - Other: See Comments Comments: Sneezing, runny nose TOMATOES 04/18/2018 9 - Itching Date Reviewed: 11/15/2018 Reviewed by: Emma Hilario - Fully Assessed Reason for Visit: F/U 6 Month [444] Diarrhea [35] Cmt: Black stool Fatigue [46] Reason For Visit History Recorded Primary Visit Diagnosis:Low hemoglobin [D64.9] Other Visit Diagnoses:Normocytic anemia, not due to blood loss [D64.9] MGUS (monoclonal gammopathy of unknown significance) [D47.2] Order(s):IRON + TIBC [SQIRON] Order #: [id number] FUTURE FERRITIN BLD [SQFERR] Order #: [id number] FUTURE RETIC COUNT [SQRETIC] Order #: [id number] FUTURE ABS GRAN CT + CBC (FOR REMOTE [facility] USE) [SQRAGCBC] Order #: [id number] FUTURE OCCULT BLD EXAM-DIAG [SQOB] Order #: [id number] Follow-up and Disposition History Recorded Prescriptions as [...] [D64.9]INVALID FOR* Encounter Status:Closed by EMMA HILARIO CNP on 11/23/18 Normal [facility] Ferritinon 11-15-2018 Ferritin [Mass/Vol] 132.8 ng/mL Normal 14.7-205.1 [facility] Comment on above: Performed By: #### R ETIC, IRON, FERR #### [facility] [address], [place] [address] Iron and TIBCon 11-15-2018 Iron [Mass/Vol] 54 ug/dL Normal 41-186 [facility] Comment on above: Performed By: #### R ETIC, IRON, FERR #### [facility] [address], [place] [id number] TIBC 377 ug/dL Normal 232-386 [facility] Comment on above: Performed By: #### R ETIC, IRON, FERR #### [facility] [address], [place] [id number] Transferrin Saturatn 14 % Low 15-57 [facility] Comment on above: Performed By: #### R ETIC, IRON, FERR #### [facility] [address], [place] [id number] PROGRESSon 11-15-2018 PROGRESS HNO ID: [id number] Author: Emma Fish (Dynamics Ax Developer) Rebeka Service: ? Author Type: Nurse Practitioner Type: Progress Notes Filed: 11/23/2018 1:11 PM Note Text: REASON FOR VISIT: Asif Dela Cruz is a very pleasant 62 [...] tablet 1 po bid PRN - Tizan-M Zr-Nvcw-JGW-Sophia-Men-Al (COMFORT PAC-TIZANIDINE) 4 mg kit - GABAPENTIN [...] Abs Lymph 1.00 - 4.00 k/uL 2.75 Beckham% % 6.9 Abs Beckham <0.87 k/uL 0.63 Eosin% % 4.7 Abs [...] Visit None PLAN: MGUS, IgG monoclonal with Ehrenfeld light chain specificity, too small to quantify [...] will order myeloma panel again. Emma Hilario, COMPUTATIONAL PHYSICIST CC: Yamila Hayden Normal [facility] Reticulocyteon 11-15-2018 Abs Retic 0.078 M/uL Normal 0.0180-0.1 000 [facility] Comment on above: Performed By: #### R ETIC, IRON, FERR #### [facility] [address], [place] [address] Retic% 2.2 % High 0.4-2.0 [facility] Comment on above: Performed By: #### R ETIC, IRON, FERR #### [facility] [address], [place] [address] CBC and Differentialon 11-08 Abs Baso 0.11 k/uL High <0.11 [facility] Abs Beckham 0.63 k/uL Normal <0.87 [facility] Abs Neut 5.19 k/uL Normal 1.45-7.50 [facility] Basophils/100 WBC (Bld) 1.2 % Normal [facility] Eosinophils (Bld) [#/Vol] 0.43 10*3/uL Normal <0.46 [facility] Eosinophils/100 WBC (Bld) 4.7 % Normal [facility] Erythrocyte distribution width (RBC) [Ratio] 13.1 % Normal 11.5-15.0 [facility] Hematocrit (Bld) [Volume fraction] 33.5 % Low 36.0-46.0 [facility] Hemoglobin (Bld) [Mass/Vol] 11.1 g/dL Low 11.5-15.5 [facility] Lymphocytes (Bld) [#/Vol] 2.75 10*3/uL Normal 1.00-4.00 [facility] Lymphocytes/100 WBC (Bld) 30.2 % Normal [facility] MCH (RBC) [Entitic mass] 30.5 pG Normal 26.0-34.0 [facility] MCHC (RBC) [Mass/Vol] 33.1 g/dL Normal 30.5-36.0 [facility] MCV (RBC) [Entitic vol] 92.0 fL Normal 80.0-100.0 [facility] Monocytes/100 WBC (Bld) 6.9 % Normal [facility] Neutrophils/100 WBC (Bld) 57.0 % Normal [facility] Platelet mean volume (Bld) [Entitic vol] 9.3 fL Normal 9.0-12.7 [facility] Platelets (Bld) [#/Vol] 373 10*3/uL Normal 150-400 [facility] RBC (Bld) [#/Vol] 3.64 10*6/uL Low 3.90-5.20 [facility] WBC (Bld) [#/Vol] 9.11 10*3/uL Normal 3.70-11.00 [facility] Comp Metabolic Panelon 11-08 Albumin [Mass/Vol] 4.3 g/dL Normal 3.9-4.9 [facility] ALP [Catalytic activity/Vol] 61 U/L Normal 34-123 [facility] ALT [Catalytic activity/Vol] 12 U/L Normal 7-38 [facility] Anion gap [Moles/Vol] 8 mmol/L Low 9-18 [facility] AST [Catalytic activity/Vol] 10 U/L Low 13-35 [facility] Bilirubin [Mass/Vol] 0.2 mg/dL Normal 0.2-1.3 [facility] Calcium [Mass/Vol] 9.5 mg/dL Normal 8.5-10.2 [facility] Chloride [Moles/Vol] 98 mmol/L Normal 97-105 [facility] CO2 [Moles/Vol] 27 mmol/L Normal 22-30 [facility] Creatinine [Mass/Vol] 1.08 mg/dL High 0.58-0.96 [facility] eGFR- Amer. >60 Normal [facility] GFR/1.73 sq M predicted among non-blacks MDRD (S/P/Bld) [Vol rate/Area] 51 . Normal [facility] Comment on above: Result Comment: eGFR (Estimated [...] GFR. Glucose [Mass/Vol] 127 mg/dL High 74-99 [facility] Comment on above: Result Comment: The [place] Diabetes Association (ADA) provides guidance for cutoff [...] Standards of Medical Care in Diabetes 2016, [place] [employer]. Diabetes Care. 2016.39(Suppl 1). Potassium [Moles/Vol] 5.2 mmol/L High 3.7-5.1 [facility] Protein [Mass/Vol] 6.8 g/dL Normal 6.3-8.0 [facility] Sodium [Moles/Vol] 133 mmol/L Low 136-144 [facility] Urea nitrogen [Mass/Vol] 18 mg/dL Normal 7-21 [facility] Vitamin B12on 11-08-2018 Cobalamin (Vitamin B12) [Mass/Vol] 416 pg/mL Normal 232-1245 [facility] Comment on above: Performed By: #### B 12 #### [facility] [address] [address] [place] Mamm Screen w/CAD if perf and 3D Bilon 10-25-2018 Bilirubin.direct [Mass/Vol] Exam Date/Time: 10/24/2018 13:45 EDT Reason for Exam: SCREENING 3D POST MENOPAUSAL;Screening Report STUDY: Digital mammography screening with jose; 10/24/2018 1:45 pm ACCESSION NUMBER(S): [id number] ORDERING CLINICIAN: Yamila Hayden INDICATION: Screening. COMPARISON: [...] Category 1-Negative Recommendation: Normal interval follow-up Normal [facility] BD Bone Density DEXAon 10-24 BD Bone Density DEXA Exam Date/Time: 10/24/2018 13:31 EDT Reason for Exam: SCREENING 3D POST MENOPAUSAL;Post menopausal Report STUDY: BD Bone Density DEXA; 10/24/2018 1:31 pm INDICATION: Post menopausal. Evaluate for osteopenia/osteoporosis, ACCESSION NUMBER(S): [id number] ORDERING CLINICIAN: Yamila Hayden FINDINGS: Standard measurements [...] pm Signed by: Frank Marion MD Technologist: [facility] XR Chest 2 Viewson 9 XR Chest 2 Views Exam Date/Time: 10/24/2018 13:55 EDT Reason for Exam: Cough Report STUDY: XR Chest 2 Views; 10/24/2018 1:55 pm INDICATION: Cough. COMPARISON: 02/28/2017 ACCESSION NUMBER(S): [id number] ORDERING CLINICIAN: Iris Blakely FINDINGS: PA and [...] pm Signed by: Frank Marion MD Technologist: [facility] CT Spine Cervical w/o Contra ston 08-28-2018 CT Spine Cervical w/o Contrast Exam Date/Time: 08/28/2018 14:31 EDT Reason for Exam: Sprain/Strain Report STUDY: CT Spine Cervical w/o Contrast; 08/28/2018 2:31 pm INDICATION: Sprain/Strain. COMPARISON: None. ACCESSION NUMBER(S): [id number] ORDERING CLINICIAN: Mark Alcantar TECHNIQUE: Contiguous axial [...] central canal narrowing identified. C4-5: At least wfhn-jr-ddulvikf central canal narrowing is present. Mild right-sided [...] Signed by: Frank Marion MD Technologist: [facility] CT Thorax w/o Contraston CT Thorax w/o Contrast Exam Date/Time: 06/26/2018 13:58 EST Reason for Exam: PULMONARY NODULE;Other (please specify) Report STUDY: CT Thorax w/o Contrast; 06/26/2018 1:58 pm INDICATION: Follow-up lung nodule COMPARISON: CT chest dated 07/18/2016 ACCESSION NUMBER(S): [id number] ORDERING CLINICIAN: Yamila Hayden TECHNIQUE: Contiguous axial [...] calcifications are seen throughout the coronary arteries. Vkla-fz-fqmcobqi aortic valve calcifications are present. VESSELS: Zxse-aw-fcmovjfs atherosclerotic calcifications are seen in the aortic [...] am Signed by: Frank Marion MD Technologist: [facility] Normal [facility] Auto Diffon 06-13-2018 Basophils (Bld) [#/Vol] 0.1 E3/mcL Normal 0.0-0.2 [facility] Comment on above: Order Comment: Order Added by Discern Expert. Performed By: #### 2 [id number] #### KATHERINE RemHemo [address] [place] [address] Basophils/100 WBC (Bld) 1.2 % Normal 0.0-2.0 [facility] Comment on above: Order Comment: Order Added by Discern Expert. Performed By: #### 2 228474 #### KATHERINE RemHemo [address] [place] [address] Eos Absolute 0.3 E3/mcL Normal 0.0-0.7 [facility] Comment on above: Order Comment: Order Added by Discern Expert. Performed By: #### 2 612962 #### KATHERINE RemHemo [address] [place] [address] Eosinophils/100 WBC (Bld) 2.5 % Normal 0.0-11.0 [facility] Comment on above: Order Comment: Order Added by Discern Expert. Performed By: #### 2 190811 #### KATHERINE RemHemo [address] [place] [address] Lymphocytes (Bld) [#/Vol] 3.2 E3/mcL Normal 1.2-3.4 [facility] Comment on above: Order Comment: Order Added by Discern Expert. Performed By: #### 2 [id number] #### KATHERINE RemHemo [address] [place] [address] Lymphocytes/100 WBC (Bld) 26.6 % Normal 20.0-55.0 [facility] Comment on above: Order Comment: Order Added by Discern Expert. Performed By: #### 2 147932 #### KATHERINE RemHemo [address] [place] [address] Beckham Absolute 0.6 E3/mcL Normal 0.0-0.7 [facility] Comment on above: Order Comment: Order Added by Discern Expert. Performed By: #### 2 307669 #### KATHERINE RemHemo [address] [place] [address] Monocytes/100 WBC (Bld) 5.0 % Normal 0.0-10.0 [facility] Comment on above: Order Comment: Order Added by Discern Expert. Performed By: #### 2 188803 #### KATHERINE RemHemo [address] [place] [address] Neutro Absolute 7.7 E3/mcL High 1.4-6.5 [facility] Comment on above: Order Comment: Order Added by Discern Expert. Performed By: #### 2 967560 #### KATHERINE RemHemo [address] [place] [address] Neutro Auto 64.7 % Normal 37.0-75.0 [facility] Comment on above: Order Comment: Order Added by Discern Expert. Performed By: #### 2 624325 #### KATHERINE RemHemo [address] [place] [address] CBC w/ Auto Diffon Erythrocyte distribution width (RBC) [Ratio] 14.0 % Normal 11.5-14.5 [facility] Comment on above: Performed By: #### 2 028216 #### KATHERINE RemHemo [address] [place] [address] Hematocrit (Bld) [Volume fraction] 36.0 % Normal 36.0-48.0 [facility] Comment on above: Performed By: #### 2 960964 #### KATHERINE RemHemo [address] [place] [address] Hemoglobin (Bld) [Mass/Vol] 12.0 g/dL Normal 12.0-16.0 [facility] Comment on above: Performed By: #### 2 497054 #### KATHERINE RemHemo [address] [place] [address] MCH (RBC) [Entitic mass] 30.9 pg Normal 27.0-31.0 [facility] Comment on above: Performed By: #### 2 026204 #### KATHERINE RemHemo [address] [place] [address] MCHC (RBC) [Mass/Vol] 33.4 g/dL Normal 33.0-37.0 [facility] Comment on above: Performed By: #### 2 657568 #### KATHERINE RemHemo [address] [place] [address] MCV (RBC) [Entitic vol] 92.3 fL Normal 78.0-100.0 [facility] Comment on above: Performed By: #### 2 630593 #### KATHERINE RemHemo [address] [place] [address] Platelet mean volume (Bld) [Entitic vol] 7.7 fL Normal 7.4-11.0 [facility] Comment on above: Performed By: #### 2 388539 #### KATHERINE RemHemo [address] [place] [address] Platelets (Bld) [#/Vol] 422 E3/mcL High 130-400 [facility] Comment on above: Performed By: #### 2 680059 #### KATHERINE RemHemo [address] [place] [address] RBC (Bld) [#/Vol] 3.90 E6/mcL Normal 3.90-5.[address] [facility] Comment on above: Performed By: #### 2 981926 #### KATHERINE RemHemo [address] [place] [address] WBC (Bld) [#/Vol] 11.9 E3/mcL High 3.6-11.[address] [facility] Comment on above: Performed By: #### 2 799270 #### KATHERINE RemHemo [address] [place] [address] CMPon 06-13-2018 Albumin [Mass/Vol] 4.7 g/dL Normal 3.4-5.[address] [facility] Comment on above: Performed By: #### 2 562427 #### KATHERINE [facility] [address] [place] [address] Albumin/Globulin [Mass ratio] 1.6 {ratio} Normal 1.1-1.9 [facility] Comment on above: Performed By: #### 2 268610 #### KATHERINE [facility] [address] [place] [address] Alk Phos 78 Int._Unit/L Normal 33-136 [facility] Comment on above: Performed By: #### 2 440029 #### KATHERINE [facility] [address] [place] [address] ALT [Catalytic activity/Vol] 12 Int._Unit/L Normal 7-45 [facility] Comment on above: Performed By: #### 2 439039 #### KATHERINE [facility] [address] [place] [address] Anion gap [Moles/Vol] 14 mmol/L Normal 10-20 [facility] Comment on above: Performed By: #### 2 250910 #### KATHERINE [facility] [address] [place] [address] AST [Catalytic activity/Vol] 11 Int._Unit/L Normal 9-39 [facility] Comment on above: Performed By: #### 2 272074 #### KATHERINE [facility] [address] [place] [address] Bili Total 0.38 mg/dL Normal 0.00-1.20 [facility] Comment on above: Performed By: #### 2 324181 #### KATHERINE [employer] [facility] [place] [address] Calcium [Mass/Vol] 9.6 mg/dL Normal 8.6-10.[address] [facility] Comment on above: Performed By: #### 2 [id number] #### KATHERINE [employer] [address] [place] [address] Chloride [Moles/Vol] 101 mmol/L Normal 98-[address] [facility] Comment on above: Performed By: #### 2 [id number] #### KATHERINE [employer] [address] [place] [address] 327[address] CO2 [Moles/Vol] 28.0 mmol/L Normal 21.0-32.0 [facility] Comment on above: Performed By: #### 2 [id number] #### KATHERINE [employer] [address] [place] [address] Creatinine [Mass/Vol] 1.1 mg/dL Normal 0.5-1.1 [facility] Comment on above: Performed By: #### 2 [id number] #### KATHERINE [employer] [facility] [place] [address] Globulin (S) [Mass/Vol] 3.0 g/dL Normal 2.0-4.0 [facility] Comment on above: Performed By: #### 2 [id number] #### KATHERINE [employer] [address] [place] [address] Glucose [Mass/Vol] 82 mg/dL Normal 70-[address] [facility] Comment on above: Performed By: #### 2 [id number] #### KTAHERINEEmelina [employer] [address] [place] [address] Potassium [Moles/Vol] 4.1 mmol/L Normal 3.5-5.3 [facility] Comment on above: Performed By: #### 2 [id number] #### KATHERINE [employer] [address] [place] [address] Protein [Mass/Vol] 7.6 g/dL Normal 6.4-8.[address] [facility] Comment on above: Performed By: #### 2 [id number] #### KATHERINE [employer] [address] [place] [address] Sodium [Moles/Vol] 138 mmol/L Normal 136-[address] [facility] Comment on above: Performed By: #### 2 [id number] #### KATHERINE [employer] [address] [place] [address] Urea nitrogen [Mass/Vol] 25 mg/dL High 6-23 [facility] Comment on above: Performed By: #### 2 [id number] #### KATHERINE [employer] [address] [place] [address] Urea nitrogen/Creatinine [Mass ratio] 22.7 ratio Normal 5.4-30.0 [facility] Comment on above: Performed By: #### 2 [id number] #### KATHERINE [employer] [address] [place] [address] [id number] 06-13-2018 HbA1c (Bld) [Mass fraction] 6.6 % High 4.0-6.3 [facility] Comment on above: Performed By: #### 3 [id number] #### KATHERINE Chemistry Manual Subsection [address] [place] [address] Lipid Profileon 06-13-2018 Cholesterol [Mass/Vol] 239 mg/dL High 0-199 [facility] Comment on above: Performed By: #### 3 [id number] #### KATHERINE [employer] [address] [place] [address] Cholesterol in HDL [Mass/Vol] 54 mg/dL Normal 40-60 [facility] Comment on above: Performed By: #### 3 [id number] #### KATHERINE [employer] [address] [place] [address] Cholesterol in LDL [Mass/Vol] 119 mg/dL Normal 0-130 [facility] Comment on above: Performed By: #### 3 [id number] #### KATHERINE [employer] [address] [place] [address] Cholesterol in VLDL [Mass/Vol] 66 mg/dL High 0-40 [facility] Comment on above: Performed By: #### 3 [id number] #### KATHERINE [employer] [facility] [place] [address] Triglyceride [Mass/Vol] 330 mg/dL High 0-149 [facility] Comment on above: Result Comment: AGE DESIRABLE BORDERLINE HIGH 91 D - 9 Y 0 - 74 75 - 99 > 100 10 - 19 Y 0 - 89 90 - 129 > 130 20 - 24 Y 0 - 114 115 - 149 > 150 > 25 0 - 149 150 - 199 200 - 499 Performed By: #### 3 [id number] #### KATHERINE [employer] [address] [place] [address] Microalb/Creat Ratioon 06-13 Creatinine [Mass/Vol] 77 ug/mg High 0-30 [facility] Comment on above: Performed By: #### 1 [id number] #### KATHERINE [employer] [address] [place] [address] Creatinine [Mass/Vol] 101.0 mg/dL Normal 20.0-300.0 [facility] Comment on above: Performed By: #### 1 [id number] #### KATHERINE [employer] [address] [place] [address] Ur Microalbumin 7.8 mg/dL High 0.0-1.9 [facility] Comment on above: Performed By: #### 1 [id number] #### KATHERINE [employer] [address] [place] [address] TSHon 06-13-2018 TSH Qn 1.93 mcIU/mL Normal 0.30-5.60 [facility] Comment on above: Performed By: #### 2 [id number] #### KATHERINE [employer] [address] [place] [address] UA Completeon 06-13-2018 Color (U) Yellow Normal Yellow [facility] Comment on above: Performed By: #### 8 [id number] #### KATHERINE Urinalysis Automated Subsection [address] [place] [address] Glucose (U) [Mass/Vol] Negative Normal Negative [facility] Comment on above: Performed By: #### 8 [id number] #### KATHERINE Urinalysis Automated Subsection [address] [place] [address] Ketones Ql (U) Negative Normal Negative [facility] Comment on above: Performed By: #### 8 [id number] #### KATHERINE Urinalysis Automated Subsection [address] [place] [address] UA Blood Negative Normal Negative [facility] Comment on above: Performed By: #### 8 [id number] #### KATHERINE Urinalysis Automated Subsection [facility] [place] [address] UA Clarity Clear Normal Clear [facility] Comment on above: Performed By: #### 8 [id number] #### KATHERINE Urinalysis Automated Subsection [facility] [place] [address] UA Leuk Est Negative Normal Negative [facility] Comment on above: Performed By: #### 8 [id number] #### KATHERINE Urinalysis Automated Subsection [facility] [place] [address] UA Mucous Trace Abnormal Trace [facility] Comment on above: Performed By: #### 8 [id number] #### KATHERINE Urinalysis Automated Subsection [facility] [place] [address] UA Nitrite Negative Normal Negative [facility] Comment on above: Performed By: #### 8 [id number] #### KATHERINE Urinalysis Automated Subsection [facility] [place] [address] UA pH 5.0 Normal 4.6-8.0 [facility] Comment on above: Performed By: #### 8 [id number] #### KATHERINE Urinalysis Automated Subsection [address] [place] [address] UA Protein Negative Normal Negative [facility] Comment on above: Performed By: #### 8 [id number] #### KATHERINE Urinalysis Automated Subsection [facility] [place] [address] UA Spec Grav 1.015 Normal 1.003-1.03 0 [facility] Comment on above: Performed By: #### 8 [id number] #### KATHERINE Urinalysis Automated Subsection [facility] [place] [address] UA Squam Epithelial 0-5 Normal 0-5 [facility] Comment on above: Performed By: #### 8 [id number] #### KATHERINE Urinalysis Automated Subsection [facility] [place] [address] UA Urobilinogen Negative Normal [facility] Comment on above: Result Comment: Due to a manufacturing issue, low positive urobilinogen results may be fasely positive. Correlate with urine bilirubin and additional clinical/laboratory findings to assess the risk of hemolytic anemia or liver disease. If clinically indicated, repeat testing with an alternate method is available by contacting the laboratory within 24 hours. Performed By: #### 8 [id number] #### KATHERINE Urinalysis Automated Subsection [address] [place] [address] Urobilinogen Qn (U) Negative Normal Negative [facility] Comment on above: Performed By: #### 8 [id number] #### KATHERINE Urinalysis Automated Subsection [address] [place] [address] eGFRon 06-13-2018 GFR/1.73 sq M predicted among non-blacks MDRD (S/P/Bld) [Vol rate/Area] 49 mL/min/1.73 m2 [facility] Comment on above: Order Comment: Order added by Discern Expert. Performed By: #### 1 [id number] #### KATHERINE [employer] [facility] [place] [address] GFR/1.73 sq M predicted among non-blacks MDRD (S/P/Bld) [Vol rate/Area] 60 mL/min/1.73 m2 [facility] Comment on above: Order Comment: Order added by Discern Expert. Performed By: #### 1 [id number] #### KATHERINE [employer] [address] [place], [place] [address] BLOOD GAS VENOUSon 8 Arterial patency Wrist artery --pre arterial puncture NOT APPLICABLE Invalid Interpretation Code [address] Base excess Calculated molar conc (BldV) 1.9 Invalid Interpretation Code [address] Carbon dioxide/Gas.total.at end expiration in Exhaled gas 20.0 Invalid Interpretation Code Vol% [address] Carboxyhemoglobin/Hemo globin.total mass fraction (Bld) 3.6 % Invalid Interpretation Code [address] CO2 ppres (BldC) 24.[address] Diagnosis Narrative UNKNOWN Invalid Interpretation Code [address] HCO3 molar conc (Bld) 22.6 mmol/L Invalid Interpretation Code [address] Hemoglobin mass conc (Bld) 12.5 g/dL Invalid Interpretation Code [address] Interpretation and review of laboratory results Abnormal Invalid Interpretation Code [address] Methemoglobin/Hemoglob in.total mass fraction (BldC) 0.8 % Invalid Interpretation Code [address] O2 Device UNKNOWN Invalid Interpretation Code [address] Oxygen ppres (BldC) 28.[address] Oxygen saturation in Capillary blood 51.4 % Low 68 - 77 % [address] Oxyhemoglobin/Hemoglob in.total mass fraction (Bld) 49.1 % Invalid Interpretation Code [address] Patient PO2 Settings UNKNOWN Invalid Interpretation Code [address] pH (BldC) 7.[address] Specimen site Narrative LAB Invalid Interpretation Code [address] CBC, EDIF, PLATELETon 2017 ABSOLUTE BASOPHIL COUNT 0.1 Invalid Interpretation Code X10 [address] Basophils/100 WBC Auto (Bld) 1.1 % Invalid Interpretation Code 0 - 2 % [address] Differential cell count method Nom (Bld) AUTO DIFF Invalid Interpretation Code % [address] Eosinophils Auto #/vol (Bld) 0.20 10*3/uL Invalid Interpretation Code X10 [address] Eosinophils/100 WBC Auto (Bld) 1.3 % Invalid Interpretation Code 0 - 11 % [address] Erythrocyte distribution width Ratio (RBC) 14.2 % Invalid Interpretation Code 11.5 - 14.5 % [address] Hematocrit Auto Volume Fraction (Bld) 37.7 % Invalid Interpretation Code 36 - 48 % [address] Hemoglobin mass conc (Bld) 13.1 g/dL Invalid Interpretation Code [address] Lymphocytes Manual cnt #/vol (Bld) 3.20 Invalid Interpretation Code X10 [address] Lymphocytes/100 WBC Auto (Bld) 25.8 % Invalid Interpretation Code 20 - 55 % [address] MCH Auto Entitic mass (RBC) 30.6 pg Invalid Interpretation Code 26 - [address] MCHC Auto mass conc (RBC) 34.6 g/dL Invalid Interpretation Code [address] MCV Auto Entitic volume (RBC) 88.2 fL Invalid Interpretation Code [address] Monocytes Manual cnt #/vol (Bld) 0.7 Invalid Interpretation Code X10 [address] Monocytes/100 WBC Auto (Bld) 5.7 % Invalid Interpretation Code 0 - 10 % [address] Neutrophils Auto #/vol (Bld) 8.1 10*3/uL High [address] Neutrophils/100 WBC Auto (Bld) 66.1 % Invalid Interpretation Code 37 - 75 % [address] Platelet mean volume Auto Entitic volume (Bld) 7.2 fL Low [address] Platelets Auto #/vol (Bld) 436 10*3/uL High [address] RBC Auto #/vol (Bld) 4.28 10*6/uL Invalid Interpretation Code [address] WBC Auto #/vol (Bld) 12.2 10*3/uL High ON [address] COMPREHENSIVE METABOLIC PANE [place] 05-03-2018 Albumin mass conc 4.7 G/dl Invalid Interpretation Code 3.5 - 5 G/dl [address] Albumin/Globulin mass ratio 1.6 {ratio} Invalid Interpretation Code [address] ALP enzyme act/vol 71 U/L Invalid Interpretation Code [address] ALT enzyme act/vol 12 U/L Low [address] AST enzyme act/vol 16 U/L Invalid Interpretation Code [address] Bilirubin mass conc 1.1 mg/dL Invalid Interpretation Code [address] Calcium mass conc 9.6 mg/dL Invalid Interpretation Code [address] Chloride molar conc 91 mmol/L Low [address] CO2 molar conc 24 mmol/L Invalid Interpretation Code [address] Creatinine mass conc 1.4 mg/dL High [address] GFR/1.73 sq M predicted among blacks MDRD vol rate/area (S/P/Bld) 49 mL/min/{1.73_m2} Invalid Interpretation Code ml/min/1.[address] GFR/1.73 sq M predicted among non-blacks MDRD vol rate/area (S/P/Bld) Average GFR for 60-69 years old = 85. Invalid Interpretation Code [address] Comment on above: Chronic Kidney disea se, GFR = <60. Kidney failure, GFR = <15. The GFR estimate is not adjusted for extreme body surface area or acute process, nor has it been validated for women or ethnic groups other than and . GFR/1.73 sq M predicted among non-blacks MDRD vol rate/area (S/P/Bld) 41 mL/min/{1.73_m2} Invalid Interpretation Code ml/min/1.[address] Glucose fasting mass conc 98 mg/dL Invalid Interpretation Code [address] Comment on above: NORMAL <100 mg/dL NE EDIABETES 101-126 mg/dL DIABETES 126 mg/dL or higher Potassium molar conc 3.7 mmol/L Invalid Interpretation Code [address] Protein mass conc 7.7 g/dL Invalid Interpretation Code [address] Sodium molar conc 131 mmol/L Low [address] Urea nitrogen mass conc 31 mg/dL High [address] KETONES (BLOOD)on 05-03-2018 Beta hydroxybutyrate molar conc 0.[address] LACTATE, BLOODon 05-03-2018 Lactate molar conc 1.5 mmol/L Invalid Interpretation Code [address] LIPASEon 05-03-2018 Lipase enzyme act/vol 19 U/L Low 23 - 3 00 U/L [address] Otheron 05-03-2018 Interpretation and review of laboratory results Abnormal Invalid Interpretation Code [address] POCT GLUCOSEon 05-03-2018 Glucose mass conc 105 mg/dL Abnormal 70 - 99 mg/dL [facility] Work Phone: Interpretation and review of laboratory results Abnormal Invalid Interpretation Code [facility] Work Phone: TROPONINon 05-03-2018 Troponin I.cardiac mass conc ng/mL Invalid Interpretation Code 0 - 0.08 ng/mL [address] URINALYSIS, MACROon 05-03-20 18 Bilirubin Ql (U) Negative Invalid Interpretation Code NEGATIVE [address] Clarity Nom (U) CLEAR Invalid Interpretation Code CLEAR [address] Color Nom (U) YELLOW Invalid Interpretation Code YELLOW [address] Glucose Test strip mass conc (U) Negative Invalid Interpretation Code NEGATIVE mg/dl [address] Hemoglobin Test strip Ql (U) Negative Invalid Interpretation Code NEGATIVE [address] Interpretation and review of laboratory results Abnormal Invalid Interpretation Code [address] Ketones mass conc (U) Negative Invalid Interpretation Code NEGATIVE mg/dl [address] Leukocyte esterase Test strip Ql (U) Negative Invalid Interpretation Code NEGATIVE [address] Nitrite Test strip Ql (U) Negative Invalid Interpretation Code NEGATIVE [address] pH Test strip (U) 5.5 [pH] Invalid Interpretation Code [facility] [address] [place] [address] Protein Test strip Ql (U) Negative Invalid Interpretation Code NEGATIVE mg/dl [address] Specific gravity Relative Density (U) <1.[address] Urobilinogen mass conc (U) 0.2 mg/dl Invalid Interpretation Code 0.2 - 1 mg/dl [address] Otheron 04-19-2018 Dell Willis 04/19/2018 1:55 PM 04/19/2018 EMG/NCV study performed on today's date. Full report to be scanned as soon as possible. Invalid Interpretation Code [facility] Work Phone: ED PHYSICIAN DICTATIONon ED PHYSICIAN DICTATION The required clin ica documentation could not be extracted for this report. Please refer to the [facility] Record or contact the HIM Department at [facility] ([phone]) to obtain a copy of this report. Normal [facility] ED PHYSICIAN DICTATION PDF Normal [facility] HISTORY & PHYSICALon 017 HISTORY & PHYSICAL [facility] History and PhysicalASIF DELA CRUZ JMRN: [id number] ACCTNUM: [id number] OF : 1955 SEX/AGE: F/61PAT[facility] LOCATION: [id number] DATE: CHIEF COMPLAINT: Dizziness, lightheadedness, weakness, and sweatiness.HISTORY OF CHIEF COMPLAINT: This is a 61-year-old lady who came to the emergency room of [facility] on 12/17/2016 with the above chief complaint. She states that she was with hergranddaughter and became frightened because she started to feel weak, dizzy, lightheaded, and was sweaty.She was transported to the emergency room of [facility]. The patient reports that she had notfelt [...] lesions. No open areas. Page [address] [place] [address] History and PhysicalPATIENT NAME: ASIF DELA CRUZ#: [id number] ACCTNUM: [id number] DATA AND DIAGNOSTIC STUDIES: Chest x-ray shows no acute findings. CT of the headshows no definitive acute abnormality. Evidence of subacute chronic cerebromicrovascular disease. Lactic acid4.5. Hemogram: White count 17.3, hemoglobin 16.1, hematocrit 44.9, platelets 628. Metabolic panel: [id number], potassium 4.1, chloride 91, CO2 of 25, [...] [place]ondon DOKS:modlD: 12/18/2016 11:23:50T: 12/18/2016 12:20:35Job #: [id number] Page 2 of 1 Normal [facility] HISTORY & PHYSICAL PDF Normal [facility] Basic Panelon 12-19-2016 Anion gap 0 mmol/L Low 8-20 [facility] Comment on above: Performed By: #### L GFR ####[place] [address] BUN (urea nitrogen) 12 mg/dL Normal 7-25 [facility] Comment on above: Performed By: #### L GFR ####[facility] [place] [address] BUN/Creatinine Ratio 15 mg/mg Normal 10-20 [facility] [place] [facility] Comment on above: Performed By: #### L GFR ####[place] [address] Calcium 8.5 mg/dL Normal 8.5-10.1 [facility] Comment on above: Performed By: #### L GFR ####[place] [address] Chloride 106 mmol/L Normal 98-107 [facility] Comment on above: Performed By: #### L GFR ####[place] [address] CO2 32 mmol/L Normal 21-32 [facility] Comment on above: Performed By: #### L GFR ####[place] [address] Creatinine 0.81 mg/dL Normal 0.51-0.95 [facility] Comment on above: Performed By: #### L GFR ####[place] [address] Glucose mass conc 62 mg/dL Low 70-99 [facility] Comment on above: Performed By: #### L GFR ####[place] [address] Potassium molar conc 4.1 mmol/L Normal 3.5-5.1 [facility] [place] [facility] Comment on above: Performed By: #### L GFR ####[place] [address] Sodium 134 mmol/L Low 136-145 [facility] Comment on above: Performed By: #### L GFR ####[place] [address] Hemogram/Diffon 12-19-2016 Erythrocytes (RBC) 3.63 mil/cmm Low 4.20-5.40 [facility] [place] [facility] Comment on above: Performed By: #### L GFR ####[place] [address] Hematocrit (HCT) 32.4 % Low 37.0-47.0 [facility] Comment on above: Performed By: #### L GFR ####[address] [address] Hemoglobin mass conc (Bld) 11.2 g/dL Low 12.0-16.0 [facility] Comment on above: Performed By: #### L GFR ####[place] [address] MCH 30.9 pg Normal 27.0-31.0 [facility] Comment on above: Performed By: #### L GFR ####[place] [address] MCV 89.3 fL Normal 81.0-99.0 [facility] Comment on above: Performed By: #### L GFR ####[place] [address] Platelets 371 thou/cmm Normal 150-400 [facility] Comment on above: Performed By: #### L GFR ####[address] [address] Hemogram/Manual Diffon 12-19 Basophils Auto #/vol (Bld) 0.00 thou/cmm Normal 0.00-0.08 [facility] Comment on above: Performed By: #### L GFR ####[address] [address] Basophils/100 WBC Auto (Bld) 0.0 % Normal [facility] Comment on above: Performed By: #### L GFR ####[address] [address] Eosinophils 0.22 thou/cmm Normal 0.00-0.41 [facility] Comment on above: Performed By: #### L GFR ####[address] [address] Eosinophils/100 leukocytes 2.0 % Normal [facility] Comment on above: Performed By: #### L GFR ####[address] [address] Erythrocyte morphology Normal Normal [facility] Comment on above: Performed By: #### L GFR ####[address] [address] Lymphocytes 4.70 thou/cmm High 1.50-3.65 [facility] Comment on above: Performed By: #### L GFR ####[address] [address] Lymphocytes/100 leukocytes 42.0 % Normal [facility] Comment on above: Performed By: #### L GFR ####[place] [address] Metamyelocytes 1.0 % Normal [facility] Comment on above: Performed By: #### L GFR ####[place] [address] Monocytes 0.22 thou/cmm Normal 0.20-1.00 [facility] Comment on above: Performed By: #### L GFR ####[address] [address] Monocytes/100 leukocytes 2.0 % Normal [facility] Comment on above: Performed By: #### L GFR ####[address] [address] Platelets Normal Normal [facility] Comment on above: Performed By: #### L GFR ####[address] [address] Seg Neutrophil 53.0 % Normal [facility] Comment on above: Performed By: #### L GFR ####[place] [address] Seg. Neut.# 6.06 thou/cmm High 3.00-5.67 [facility] Comment on above: Performed By: #### L GFR ####[place] [address] Erythrocyte distribution width Auto Ratio (RBC) 13.2 % Normal 11.5-15.9 [facility] Comment on above: Performed By: #### L GFR ####[place] [address] MCHC mass conc (RBC) 34.6 % Normal 32.0-36.0 [facility] [place] [facility] Comment on above: Performed By: #### L GFR ####[place] [address] Platelet mean volume (PMV) 8.3 fL Normal 7.1-10.5 [facility] Comment on above: Performed By: #### L GFR ####[place] [address] WBC (Leukocytes) 11.2 thou/cmm High 4.8-10.8 [facility] Comment on above: Performed By: #### L GFR ####[place] [address] Lactic acidon 12-19-2016 Lactate 0.9 mmol/L Normal 0.4-2.0 [facility] Comment on above: Performed By: #### L TRP ####[place] [address] MDRD eGFRon 12-19-2016 eGFR (non-black) mL/min/{1.73_m2} Normal >60mL/m in/ 1.73m2 [facility] Comment on above: Result Comment: If t he patient is , multiply the result by 1.210. Performed By: #### L TRP ####[place] [address] Comprehensive Panelon 2016 AST-SGOT Blood 24 U/L Normal 15-37 [facility] Comment on above: Performed By: #### L P8 ####[place] [address] Albumin 3.1 g/dL Low 3.4-5.0 [facility] Comment on above: Performed By: #### L P8 ####[place] [address] Alkaline phosphatase (ALP) 59 U/L Normal 46-116 [facility] Comment on above: Performed By: #### L P8 ####[place] [address] ALT-SGPT Blood 42 U/L Normal 12-78 [facility] Comment on above: Performed By: #### L P8 ####[facility] [place], [place] [address] Anion gap 10 mmol/L Normal 8-20 [facility] Comment on above: Performed By: #### L P8 ####[address] [address] Bilirubin Ql (U) 0.2 mg/dL Normal 0.2-1.0 [facility] Comment on above: Performed By: #### L P8 ####[address] [address] BUN (urea nitrogen) 25 mg/dL Normal 7-25 [facility] Comment on above: Performed By: #### L P8 ####[address] [address] BUN/Creatinine Ratio 33 mg/mg High 10-20 [facility] [place] [facility] Comment on above: Performed By: #### L P8 ####[address] [address] Calcium 8.6 mg/dL Normal 8.5-10.1 [facility] Comment on above: Performed By: #### L P8 ####[address] [address] Chloride 97 mmol/L Low 98-107 [facility] Comment on above: Performed By: #### L P8 ####[address] [address] CO2 29 mmol/L Normal 21-32 [facility] Comment on above: Performed By: #### L P8 ####[address] [address] Creatinine 0.77 mg/dL Normal 0.51-0.95 [facility] Comment on above: Performed By: #### L P8 ####[address] [address] Glucose mass conc 153 mg/dL High 70-99 [facility] Comment on above: Performed By: #### L P8 ####[place] [address] Potassium molar conc 3.6 mmol/L Normal 3.5-5.1 [facility] [place] [facility] Comment on above: Performed By: #### L P8 ####[facility] [place], [place] [address] Protein 6.2 g/dL Low 6.4-8.2 [facility] Comment on above: Performed By: #### L P8 ####[facility] [place], [place] [address] Sodium 132 mmol/L Low 136-145 [facility] Comment on above: Performed By: #### L P8 ####[facility] [place], [place] [address] Glucose Bloodon 12-18-2016 Glucose mass conc 65 mg/dL Low 70-99 [facility] Comment on above: Performed By: #### L GLU ####[address] [address] Glucose Meteron 12-18-2016 Glucose mass conc 113 mg/dL High 70-99 [facility] Comment on above: Result Comment: RN N OTIFIEDTesting performed at [address] [address] Performed By: #### L GFR ####[address] [address] Glucose mass conc 147 mg/dL High 70-99 [facility] Comment on above: Result Comment: RN N OTIFIEDTesting performed at [address] [address] Performed By: #### L GFR ####[address] [address] Glucose mass conc 213 mg/dL High 70-99 [facility] Comment on above: Result Comment: RN N OTIFIEDTesting performed at [address] [address] Performed By: #### L GFR ####[address] [address] Glucose mass conc 194 mg/dL High 70-99 [facility] Comment on above: Result Comment: Test ing performed at [address] [address] Performed By: #### L GFR ####[address] [address] Glucose mass conc 68 mg/dL Low 70-99 [facility] Comment on above: Result Comment: RN N OTIFIEDTesting performed at [address] [address] Performed By: #### L P8 ####[facility] [place], [place] [address] Glucose mass conc 180 mg/dL High 70-99 [facility] Comment on above: Result Comment: Test ing performed at [address] [address] Performed By: #### L P8 ####[address] [address] Glucose mass conc 70 mg/dL Normal 70-99 [facility] Comment on above: Result Comment: Test ing performed at [address] [address] Performed By: #### L P8 ####[address] [address] Glucose mass conc 111 mg/dL High 70-99 [facility] Comment on above: Result Comment: Test ing performed at [address] [address] Performed By: #### L GFR ####[address] [address] Glucose mass conc 76 mg/dL Normal 70-99 [facility] Comment on above: Result Comment: Test ing performed at [address] [address] Performed By: #### L P8 ####[address] [address] Glucose mass conc 56 mg/dL Low 70-99 [facility] Comment on above: Result Comment: RN N OTIFIEDTesting performed at [address] [address] Performed By: #### L P8 ####[address] [address] Glucose mass conc mg/dL Low 70-99 [facility] Comment on above: Result Comment: WU N OTIFIEDMD NOTIFIEDTesting performed at [address] [address] Performed By: #### L P8 ####[address] [address] Glucose mass conc 94 mg/dL Normal 70-99 [facility] Comment on above: Result Comment: Test ing performed at [address] [address] Performed By: #### L P8 ####[address] [address] Hemogram/Manual Diffon 12-18 Basophils Auto #/vol (Bld) 0.00 thou/cmm Normal 0.00-0.08 [facility] Comment on above: Performed By: #### L MCBD ####[address] [address] Basophils/100 WBC Auto (Bld) 0.0 % Normal [facility] Comment on above: Performed By: #### L MCBD ####[address] [address] Eosinophils 0.55 thou/cmm High 0.00-0.41 [facility] Comment on above: Performed By: #### L MCBD ####[address] [address] Eosinophils/100 leukocytes 3.0 % Normal [facility] Comment on above: Performed By: #### L MCBD ####[address] [address] Erythrocyte morphology Normal Normal [facility] Comment on above: Performed By: #### L MCBD ####[address] [address] Lymphocytes 5.49 thou/cmm High 1.50-3.65 [facility] Comment on above: Performed By: #### L MCBD ####[address] [address] Lymphocytes/100 leukocytes 30.0 % Normal [facility] Comment on above: Performed By: #### L MCBD ####[address] [address] Metamyelocytes 2.0 % Normal [facility] Comment on above: Performed By: #### L MCBD ####[place] [address] [place] [address] Monocytes 0.73 thou/cmm Normal 0.20-1.00 [facility] Comment on above: Performed By: #### L MCBD ####[place] [address] Monocytes/100 leukocytes 4.0 % Normal [facility] Comment on above: Performed By: #### L MCBD ####[place] [address] Myelocytes 1.0 % Normal [facility] Comment on above: Performed By: #### L MCBD ####[place] [address] Platelets High Normal [facility] Comment on above: Performed By: #### L MCBD ####[place] [address] Seg Neutrophil 60.0 % Normal [facility] Comment on above: Performed By: #### L MCBD ####[place] [address] Seg. Neut.# 11.53 thou/cmm High 3.00-5.67 [facility] Comment on above: Performed By: #### L MCBD ####[place] [address] WBC Morphology see below Normal [facility] Comment on above: Result Comment: Smud ge cells present Performed By: #### L MCBD ####[place] [address] Erythrocyte distribution width Auto Ratio (RBC) 13.2 % Normal 11.5-15.9 [facility] Comment on above: Performed By: #### L MCBD ####[place] [address] Erythrocytes (RBC) 4.00 mil/cmm Low 4.20-5.40 [facility] [place] [facility] Comment on above: Performed By: #### L MCBD ####[place] [address] Hematocrit (HCT) 35.6 % Low 37.0-47.0 [facility] Comment on above: Performed By: #### L MCBD ####[place] [address] Hemoglobin mass conc (Bld) 12.5 g/dL Normal 12.0-16.0 [facility] Comment on above: Performed By: #### L MCBD ####[place] [address] MCH 31.3 pg High 27.0-31.0 [facility] Comment on above: Performed By: #### L MCBD ####[place] [address] MCHC mass conc (RBC) 35.1 % Normal 32.0-36.0 [facility] [place] [facility] Comment on above: Performed By: #### L MCBD ####[place] [address] MCV 89.0 fL Normal 81.0-99.0 [facility] Comment on above: Performed By: #### L MCBD ####[place] [address] Platelet mean volume (PMV) 8.6 fL Normal 7.1-10.5 [facility] Comment on above: Performed By: #### L MCBD ####[place] [address] Platelets 449 thou/cmm High 150-400 [facility] Comment on above: Performed By: #### L MCBD ####[place] [address] WBC (Leukocytes) 18.3 thou/cmm High 4.8-10.8 [facility] Comment on above: Performed By: #### L MCBD ####[place] [address] Lactic acidon 12-18-2016 Lactate 1.6 mmol/L Normal 0.4-2.0 [facility] Comment on above: Performed By: #### L P8 ####[place] [address] MDRD eGFRon 12-18-2016 eGFR (non-black) mL/min/{1.73_m2} Normal >60mL/m in/ 1.73m2 [facility] Comment on above: Result Comment: If t he patient is , multiply the result by 1.210. Performed By: #### L P8 ####[place] [address] Valproic Acid,[place].on 2016 Valproic Acid,[place]. 17 mg/L Low 50-100 [facility] Comment on above: Performed By: #### L GFR ####[place] [address] Basic Panelon 12-17-2016 Anion gap 17 mmol/L Normal 8-20 [facility] Comment on above: Performed By: #### L P8 ####[place] [address] BUN (urea nitrogen) 29 mg/dL High 7-25 [facility] Comment on above: Performed By: #### L P8 ####[place] [address] BUN/Creatinine Ratio 34 mg/mg High 10-20 [facility] [place] [facility] Comment on above: Performed By: #### L P8 ####[place] [address] Calcium 10.8 mg/dL High 8.5-10.1 [facility] Comment on above: Performed By: #### L P8 ####[place] [address] Chloride 91 mmol/L Low 98-107 [facility] Comment on above: Performed By: #### L P8 ####[place] [address] CO2 25 mmol/L Normal 21-32 [facility] Comment on above: Performed By: #### L P8 ####[place] [address] Creatinine 0.85 mg/dL Normal 0.51-0.95 [facility] Comment on above: Performed By: #### L P8 ####[place] [id number] Glucose mass conc 132 mg/dL High 70-99 [facility] Comment on above: Performed By: #### L P8 ####[facility] [place] [address] Potassium molar conc 4.1 mmol/L Normal 3.5-5.1 [facility] [place] [facility] Comment on above: Performed By: #### L P8 ####[facility] [place] [address] Sodium 129 mmol/L Low 136-145 [facility] Comment on above: Performed By: #### L P8 ####[facility] [place] [address] CHEST 2 VIEWSon 12-17-2016 CHEST 2 VIEWS Performed at [facility] APPROVED BY: Nadeem Hoffman MD [...] abdomen. IMPRESSION: No acute radiographic abnormality. Normal [facility] CT HEAD W/O CONTRASTon 12-17 CT HEAD W/O CONTRAST Performed at [facility] APPROVED BY: Sandy Stewart MD BRAIN [...] evidence of subacute/chronic cerebral microvascular disease. Normal [facility] Hemogram/Manual Diffon 12-17 Basophils Auto #/vol (Bld) 0.00 thou/cmm Normal 0.00-0.08 [facility] Comment on above: Performed By: #### L MCBD ####[address] [address] Basophils/100 WBC Auto (Bld) 0.0 % Normal [facility] Comment on above: Performed By: #### L MCBD ####[address] [address] Eosinophils 0.00 thou/cmm Normal 0.00-0.41 [facility] Comment on above: Performed By: #### L MCBD ####[address] [address] Eosinophils/100 leukocytes 0.0 % Normal [facility] Comment on above: Performed By: #### L MCBD ####[address] [address] Erythrocyte morphology Normal Normal [facility] Comment on above: Performed By: #### L MCBD ####[address] [address] Lymphocytes 4.33 thou/cmm High 1.50-3.65 [facility] Comment on above: Performed By: #### L MCBD ####[address] [address] Lymphocytes/100 leukocytes 25.0 % Normal [facility] Comment on above: Performed By: #### L MCBD ####[address] [address] Monocytes 0.35 thou/cmm Normal 0.20-1.00 [facility] Comment on above: Performed By: #### L MCBD ####[address] [address] Monocytes/100 leukocytes 2.0 % Normal [facility] Comment on above: Performed By: #### L MCBD ####[address] [address] Platelets High Normal [facility] Comment on above: Performed By: #### L MCBD ####[facility] [place] [address] Seg Neutrophil 73.0 % Normal [facility] Comment on above: Performed By: #### L MCBD ####[place] [address] Seg. Neut.# 12.62 thou/cmm High 3.00-5.67 [facility] Comment on above: Performed By: #### L MCBD ####[place] [address] Erythrocyte distribution width Auto Ratio (RBC) 13.1 % Normal 11.5-15.9 [facility] Comment on above: Performed By: #### L MCBD ####[place] [address] Erythrocytes (RBC) 5.28 mil/cmm Normal 4.20-5.40 [facility] [place] [facility] Comment on above: Performed By: #### L MCBD ####[place] [address] Hematocrit (HCT) 44.9 % Normal 37.0-47.0 [facility] Comment on above: Performed By: #### L MCBD ####[place] [address] Hemoglobin mass conc (Bld) 16.1 g/dL High 12.0-16.0 [facility] Comment on above: Performed By: #### L MCBD ####[place] [address] MCH 30.5 pg Normal 27.0-31.0 [facility] Comment on above: Performed By: #### L MCBD ####[place] [address] MCHC mass conc (RBC) 35.9 % Normal 32.0-36.0 [facility] [place] [facility] Comment on above: Performed By: #### L MCBD ####[place] [address] MCV 85.0 fL Normal 81.0-99.0 [facility] Comment on above: Performed By: #### L MCBD ####[address] [address] Platelet mean volume (PMV) 8.9 fL Normal 7.1-10.5 [facility] Comment on above: Performed By: #### L MCBD ####[address] [address] Platelets 628 thou/cmm High 150-400 [facility] Comment on above: Performed By: #### L MCBD ####[place] [address] WBC (Leukocytes) 17.3 thou/cmm High 4.8-10.8 [facility] Comment on above: Performed By: #### L MCBD ####[place] [address] Lactic acidon 12-17-2016 Lactate 4.5 mmol/L Critically high 0.4-2.0 [facility] Comment on above: Performed By: #### L LA ####[place] [address] MDRD eGFRon 12-17-2016 eGFR (non-black) mL/min/{1.73_m2} Normal >60mL/m in/ 1.73m2 [facility] Comment on above: Result Comment: If t he patient is , multiply the result by 1.210. Performed By: #### L GFR ####[address] [address] Troponin Ion 12-17-2016 Troponin I.cardiac mass conc ng/mL Normal <=0.07 [facility] Comment on above: Performed By: #### L TRP ####[address] [address] Urinalysis Routineon 017 Bilirubin Urine Negative Normal Negative [facility] Comment on above: Performed By: #### L URIN ####[place] [address] Ep Cells Urine 6-12 Abnormal 0-5 [facility] Comment on above: Performed By: #### L URIN ####[place] [address] Hemoglobin,Urine Negative Normal Negative [facility] Comment on above: Performed By: #### L URIN ####[facility] [place] [address] Ketone Urine TRACE Abnormal Negative [facility] Comment on above: Performed By: #### L URIN ####[place] [address] Nitrites Urine Negative Normal Negative [facility] Comment on above: Performed By: #### L URIN ####[place] [address] Protein Urine 3+ Abnormal Negative [facility] Comment on above: Performed By: #### L URIN ####[place] [address] Specific [place], Ur 1.020 Normal 1.005-1 .03 0 [facility] Comment on above: Performed By: #### L URIN ####[place] [address] Urine, appearance 1+ (HAZY) Normal [facility] Comment on above: Performed By: #### L URIN ####[place] [address] Urine, bacteria in sediment FEW Abnormal None [facility] Comment on above: Performed By: #### L URIN ####[place] [address] Urine, color YELLOW Normal [facility] Comment on above: Performed By: #### L URIN ####[place] [address] Urine, erythrocytes in sediment by area NONE Normal 0-3 [facility] Comment on above: Performed By: #### L URIN ####[place] [address] Urine, glucose presence 1+ Abnormal Negative [facility] Comment on above: Performed By: #### L URIN ####[place] [address] Urine, leukocytes in sedmiment NONE Normal 0-5 [facility] Comment on above: Performed By: #### L URIN ####[facility] [place], [place] [address] Urine, pH 6.0 [pH] Normal 5.0-8.0 [facility] Comment on above: Performed By: #### L URIN ####[facility] [place], [place] [address] Urobilinogen,Ur 0.2 EU/dL Normal 0.0-1.0 [facility] Comment on above: Performed By: #### L URIN ####[facility] [place], [place] [address] WBC (Leukocytes) Negative Normal Negative [facility] Comment on above: Performed By: #### L URIN ####[facility] [place], [place] [address] No Panel Information Enteric Bacteriology [facility] Work Phone: SARS-CoV-2 & FLU Antigen (Rapid) [facility] Work Phone: Vital Signs Date Time Vital Sign Value Performing Clinician Facility 02-05-2025 17:43-0400 Body temperature 97.7 [degF] Dr. Denise Uribe MD Work Phone: [facility] 02-05-2025 17:43-0400 Diastolic blood pressure 62 mm[Hg] Dr. Denise Uribe MD Work Phone: [facility] 02-05-2025 17:43-0400 Heart rate 80 /min Dr. Denise Uribe MD Work Phone: [facility] 02-05-2025 17:43-0400 Respiratory rate 18 /min Dr. Denise Uribe MD Work Phone: [facility] 02-05-2025 17:43-0400 SaO2% (BldA) [Mass fraction] 95 % Dr. Denise Uribe MD Work Phone: [facility] 02-05-2025 17:43-0400 Systolic blood pressure 111 mm[Hg] Dr. Denise Uribe MD Work Phone: [facility] 02-05-2025 12:57-0400 Body height 149.[address] Denise Uribe MD Work Phone: [facility] 02-05-2025 12:57-0400 Body mass index (BMI) [Ratio] 32.1 kg/m2 Dr. Denise Uribe MD Work Phone: [facility] 02-05-2025 12:57-0400 Body weight 72.[address] Denise Uribe MD Work Phone: [facility] 01-06-2025 11:21-0400 Body height 149.[address] Denise Uribe MD Work Phone: [facility] 01-06-2025 11:21-0400 Body mass index (BMI) [Ratio] 31.7 kg/m2 Dr. Denise Uribe MD Work Phone: [facility] 01-06-2025 11:21-0400 Body weight 71.[address] Denise Uribe MD Work Phone: [facility] 01-06-2025 11:21-0400 Diastolic blood pressure 71 mm[Hg] Dr. Denise Uribe MD Work Phone: [facility] 01-06-2025 11:21-0400 Heart rate 67 /min Dr. Denise Uribe MD Work Phone: [facility] 01-06-2025 11:21-0400 SaO2% (BldA) [Mass fraction] 97 % Dr. Denise Uribe MD Work Phone: [facility] 01-06-2025 11:21-0400 Systolic blood pressure 169 mm[Hg] Dr. Denise Uribe MD Work Phone: [facility] 11-15-2024 22:13-0400 Body temperature 98.3 [degF] Dr. Denise Uribe MD Work Phone: [facility] 11-15-2024 22:13-0400 Diastolic blood pressure 74 mm[Hg] Dr. Denise Uribe MD Work Phone: [facility] 11-15-2024 22:13-0400 Heart rate 74 /min Dr. Denise Uribe MD Work Phone: [facility] 11-15-2024 22:13-0400 Respiratory rate 18 /min Dr. Denise Uribe MD Work Phone: [facility] 11-15-2024 22:13-0400 SaO2% (BldA) [Mass fraction] 97 % Dr. Denise Uribe MD Work Phone: [facility] 11-15-2024 22:13-0400 Systolic blood pressure 100 mm[Hg] Dr. Denise Uribe MD Work Phone: [facility] 11-15-2024 18:17-0400 Body height 149.[address] Denise Uribe MD Work Phone: [facility] 11-15-2024 18:17-0400 Body mass index (BMI) [Ratio] 32.9 kg/m2 Dr. Denise Uribe MD Work Phone: [facility] 11-15-2024 18:17-0400 Body weight 73.[address] Denise Uribe MD Work Phone: [facility] 09-19-2024 10:06-0400 Body temperature 97.3 [degF] Dr. Denise Uribe MD Work Phone: [facility] 09-19-2024 10:06-0400 Diastolic blood pressure 51 mm[Hg] Dr. Denise Uribe MD Work Phone: [facility] 09-19-2024 10:06-0400 Heart rate 62 /min Dr. Denise Uribe MD Work Phone: [facility] 09-19-2024 10:06-0400 Respiratory rate 16 /min Dr. Denise Uribe MD Work Phone: [facility] 09-19-2024 10:06-0400 SaO2% (BldA) [Mass fraction] 96 % Dr. Denise Uribe MD Work Phone: [facility] 09-19-2024 10:06-0400 Systolic blood pressure 102 mm[Hg] Dr. Denise Uribe MD Work Phone: [facility] 09-19-2024 09:48-0400 Body weight 69.[address] Denise Uribe MD Work Phone: [facility] 09-19-2024 05:10-0400 Body mass index (BMI) [Ratio] 30.9 kg/m2 Dr. Denise Uribe MD Work Phone: [facility] 09-17-2024 22:26-0400 Body temperature 98 [degF] Dr. Denise Uribe MD Work Phone: [facility] 09-17-2024 22:26-0400 Diastolic blood pressure 75 mm[Hg] Dr. Denise Uribe MD Work Phone: [facility] 09-17-2024 22:26-0400 Heart rate 76 /min Dr. Denise Uribe MD Work Phone: [facility] 09-17-2024 22:26-0400 Respiratory rate 16 /min Dr. Denise Uribe MD Work Phone: [facility] 09-17-2024 22:26-0400 SaO2% (BldA) [Mass fraction] 95 % Dr. Denise Uribe MD Work Phone: [facility] 09-17-2024 22:26-0400 Systolic blood pressure 126 mm[Hg] Dr. Denise Uribe MD Work Phone: [facility] 09-17-2024 19:02-0400 Body mass index (BMI) [Ratio] 30.9 kg/m2 Dr. Denise Uribe MD Work Phone: [facility] 09-17-2024 19:02-0400 Body weight 69.[address] Denise Uribe MD Work Phone: [facility] 09-17-2024 17:05-0400 Body height 149.[address] Denise Uribe MD Work Phone: [facility] 08-07-2024 14:55-0400 Body temperature 98.2 [degF] Dr. Denise Uribe MD Work Phone: [facility] 08-07-2024 14:55-0400 Diastolic blood pressure 52 mm[Hg] Dr. Denise Uribe MD Work Phone: [facility] 08-07-2024 14:55-0400 Heart rate 62 /min Dr. Denise Uribe MD Work Phone: [facility] 08-07-2024 14:55-0400 Respiratory rate 16 /min Dr. Denise Uribe MD Work Phone: [facility] 08-07-2024 14:55-0400 SaO2% (BldA) [Mass fraction] 96 % Dr. Denise Uribe MD Work Phone: [facility] 08-07-2024 14:55-0400 Systolic blood pressure 109 mm[Hg] Dr. Denise Uribe MD Work Phone: [facility] 08-07-2024 13:06-0400 Body height 149.[address] Denise Uribe MD Work Phone: [facility] 08-07-2024 13:06-0400 Body mass index (BMI) [Ratio] 32.3 kg/m2 Dr. Denise Uribe MD Work Phone: [facility] 08-07-2024 13:06-0400 Body weight 72.[address] Denise Uribe MD Work Phone: [facility] 07-24-2024 11:29-0500 Body temperature 98 [degF] Dr. Denise Uribe MD Work Phone: [facility] 07-24-2024 11:29-0500 Diastolic blood pressure 62 mm[Hg] Dr. Denise Uribe MD Work Phone: [facility] 07-24-2024 11:29-0500 Heart rate 64 /min Dr. Denise Uribe MD Work Phone: [facility] 07-24-2024 11:29-0500 Respiratory rate 18 /min Dr. Denise Uribe MD Work Phone: [facility] 07-24-2024 11:29-0500 SaO2% (BldA) [Mass fraction] 96 % Dr. Denise Uribe MD Work Phone: [facility] 07-24-2024 11:29-0500 Systolic blood pressure 112 mm[Hg] Dr. Denise Uribe MD Work Phone: [facility] 06-18-2024 12:42-0500 Body temperature 98.6 [degF] Dr. Denise Uribe MD Work Phone: [facility] 06-18-2024 12:42-0500 Diastolic blood pressure 80 mm[Hg] Dr. Denise Uribe MD Work Phone: [facility] 06-18-2024 12:42-0500 Heart rate 69 /min Dr. Denise Uribe MD Work Phone: [facility] 06-18-2024 12:42-0500 SaO2% (BldA) [Mass fraction] 96 % Dr. Denise Uribe MD Work Phone: [facility] 06-18-2024 12:42-0500 Systolic blood pressure 147 mm[Hg] Dr. Denise Uribe MD Work Phone: [facility] 06-18-2024 07:41-0500 Respiratory rate 16 /min Dr. Denise Uribe MD Work Phone: [facility] 06-18-2024 05:56-0500 Body mass index (BMI) [Ratio] 30.2 kg/m2 Dr. Denise Uribe MD Work Phone: [facility] 06-18-2024 05:56-0500 Body weight 67.[address] Denise Uribe MD Work Phone: [facility] 06-16-2024 20:39-0500 Body height 149.[address] Denise Uribe MD Work Phone: [facility] 05-22-2024 11:35-0500 Body temperature 97.6 [degF] Dr. Denise Uribe MD Work Phone: [facility] 05-22-2024 11:35-0500 Diastolic blood pressure 68 mm[Hg] Dr. Denise Uribe MD Work Phone: [facility] 05-22-2024 11:35-0500 Heart rate 60 /min Dr. Denise Uribe MD Work Phone: [facility] 05-22-2024 11:35-0500 Respiratory rate 16 /min Dr. Denise Uribe MD Work Phone: [facility] 05-22-2024 11:35-0500 SaO2% (BldA) [Mass fraction] 96 % Dr. Denise Uribe MD Work Phone: [facility] 05-22-2024 11:35-0500 Systolic blood pressure 150 mm[Hg] Dr. Denise Uribe MD Work Phone: [facility] 05-22-2024 05:37-0500 Body mass index (BMI) [Ratio] 31 kg/m2 Dr. Denise Uribe MD Work Phone: [facility] 05-22-2024 05:37-0500 Body weight 69.[address] Denise Uribe MD Work Phone: [facility] 05-18-2024 21:09-0500 Inhaled oxygen flow rate 2 L/min Dr. Denise Uribe MD Work Phone: [facility] 09-14-2023 14:18-0400 Body height 149.[address] Denise Uribe Work Phone: [facility] 09-14-2023 14:18-0400 Body temperature 97.3 [degF] Dr. Denise Uribe Work Phone: [facility] 09-14-2023 14:18-0400 Diastolic blood pressure 84 mm[Hg] Dr. Denise Uribe Work Phone: [facility] 09-14-2023 14:18-0400 Heart rate 102 /min Dr. Dneise Uribe Work Phone: [facility] 09-14-2023 14:18-0400 Respiratory rate 16 /min Dr. Denise Uribe Work Phone: [facility] 09-14-2023 14:18-0400 Systolic blood pressure 144 mm[Hg] Dr. Denise Uribe Work Phone: [facility] 09-11-2023 13:44-0400 Body temperature 98.4 [degF] Dr. Denise Uribe Work Phone: [facility] 09-11-2023 13:44-0400 Diastolic blood pressure 69 mm[Hg] Dr. Denise Uribe Work Phone: [facility] 09-11-2023 13:44-0400 Heart rate 78 /min Dr. Denise Uribe Work Phone: [facility] 09-11-2023 13:44-0400 Respiratory rate 16 /min Dr. Denise Uribe Work Phone: [facility] 09-11-2023 13:44-0400 SaO2% (BldA) [Mass fraction] 97 % Dr. Denise Uribe Work Phone: [facility] 09-11-2023 13:44-0400 Systolic blood pressure 129 mm[Hg] Dr. Denise Uribe Work Phone: [facility] 09-11-2023 10:37-0400 Body height 150.[address] Denise Uribe Work Phone: [facility] 09-11-2023 10:37-0400 Body mass index (BMI) [Ratio] 33.2 kg/m2 Dr. Denise Uribe Work Phone: [facility] 09-11-2023 10:37-0400 Body weight 74.[address] Denise Uribe Work Phone: [facility] 08-18-2023 00:11-0400 Diastolic blood pressure 66 mm[Hg] Dr. Denise Uribe Work Phone: [facility] 08-18-2023 00:11-0400 Heart rate 66 /min Dr. Denise Uribe Work Phone: [facility] 08-18-2023 00:11-0400 SaO2% (BldA) [Mass fraction] 99 % Dr. Denise Uribe Work Phone: [facility] 08-18-2023 00:11-0400 Systolic blood pressure 108 mm[Hg] Dr. Denise Uribe Work Phone: [facility] 08-18-2023 00:09-0400 Body temperature 97.9 [degF] Dr. Denise Uribe Work Phone: [facility] 08-18-2023 00:09-0400 Body weight 72.[address] Denise Uribe Work Phone: [facility] 07-21-2023 12:51-0500 Body height 149.[address] Denise Uribe Work Phone: [facility] 07-21-2023 12:51-0500 Body mass index (BMI) [Ratio] 30.4 kg/m2 Dr. Denise Uribe Work Phone: [facility] 07-21-2023 12:51-0500 Body weight 68.[address] Denise Uribe Work Phone: [facility] 07-21-2023 12:51-0500 Diastolic blood pressure 81 mm[Hg] Dr. Denise Uribe Work Phone: [facility] 07-21-2023 12:51-0500 Heart rate 63 /min Dr. Denise Uribe Work Phone: [facility] 07-21-2023 12:51-0500 Respiratory rate 18 /min Dr. Densie Uribe Work Phone: [facility] 07-21-2023 12:51-0500 SaO2% (BldA) [Mass fraction] 99 % Dr. Denise Uribe Work Phone: [facility] 07-21-2023 12:51-0500 Systolic blood pressure 141 mm[Hg] Dr. Denise Uribe Work Phone: [facility] 07-11-2023 14:42-0500 Body height 149.86 cm [employer] Devi Delgado [employer]CRE[employer] PRINTER Work Phone: [facility] 07-11-2023 14:42-0500 Body mass index (BMI) [Ratio] 30.7 kg/m2 [employer] Devi Delgado [employer]IL[employer] SCREEN PRINTER Work Phone: [facility] 07-11-2023 14:42-0500 Body temperature 97.9 [degF] [employer] Devi Delgado SILK SCREEN PRINTER Work Phone: [facility] 07-11-2023 14:42-0500 Body weight 68.94 kg [employer]CRE[employer]INTER[employer]C Devi Delgado [employer] SCREEN PRINTER Work Phone: [facility] 07-11-2023 14:42-0500 Diastolic blood pressure 80 mm[Hg] [employer] Devi Delgado SILK SCREEN PRINTER Work Phone: [facility] 07-11-2023 14:42-0500 Heart rate 72 /min [employer] Devi Delgado SILK SCREEN PRINTER Work Phone: [facility] 07-11-2023 14:42-0500 Respiratory rate 18 /min [employer]CRE[employer] Devi Delgado [employer]ILK SCREEN PRINTER Work Phone: [facility] 07-11-2023 14:42-0500 SaO2% (BldA) [Mass fraction] 98 % [employer] Devi Delgado [employer]ILK SCREEN PRINTER Work Phone: [facility] 07-11-2023 14:42-0500 Systolic blood pressure 124 mm[Hg] [employer] Devi Delgado [employer]ILK SCREEN PRINTER Work Phone: [facility] 07-07-2023 15:13-0500 Body mass index (BMI) [Ratio] 30.4 kg/m2 [employer] Devi Delgado [employer]ILK SCREEN PRINTER Work Phone: [facility] 07-07-2023 15:13-0500 Body weight 68.49 kg [employer]CRE[employer]INTER[employer]C Devi Delgado [employer]ILK SCREEN PRINTER Work Phone: [facility] 07-07-2023 15:13-0500 Diastolic blood pressure 63 mm[Hg] [employer] Devi Delgado [employer]ILK SCREEN PRINTER Work Phone: [facility] 07-07-2023 15:13-0500 Heart rate 68 /min [employer] Devi Delgado SILK SCREEN PRINTER Work Phone: [facility] 07-07-2023 15:13-0500 Respiratory rate 20 /min [employer]CRE[employer] Devi Delgado SILK SCREEN PRINTER Work Phone: [facility] 07-07-2023 15:13-0500 SaO2% (BldA) [Mass fraction] 94 % [employer] Devi Delgado SILK SCREEN PRINTER Work Phone: [facility] 07-07-2023 15:13-0500 Systolic blood pressure 120 mm[Hg] [employer] Devi Delgado SILK SCREEN PRINTER Work Phone: [facility] 07-07-2023 14:04-0500 Body mass index (BMI) [Ratio] 30.5 kg/m2 [employer] Devi Delgado SILK SCREEN PRINTER Work Phone: [facility] 07-07-2023 14:04-0500 Body temperature 98.7 [degF] [employer] Devi Delgado [employer]ILK SCREEN PRINTER Work Phone: [facility] 07-07-2023 14:04-0500 Body weight 68.66 kg [employer]CRE[employer]INTER[employer] Devi Delgado SILK SCREEN PRINTER Work Phone: [facility] 07-07-2023 14:04-0500 Diastolic blood pressure 66 mm[Hg] [employer] Devi Delgado SILK SCREEN PRINTER Work Phone: [facility] 07-07-2023 14:04-0500 Heart rate 70 /min [employer] Devi Delgado SILK SCREEN PRINTER Work Phone: [facility] 07-07-2023 14:04-0500 Respiratory rate 16 /min [employer] Devi Delgado [employer]ILK SCREEN PRINTER Work Phone: [facility] 07-07-2023 14:04-0500 SaO2% (BldA) [Mass fraction] 97 % [employer] Devi Delgado SILK SCREEN PRINTER Work Phone: [facility] 07-07-2023 14:04-0500 Systolic blood pressure 110 mm[Hg] [employer]INTER[employer] Devi Delgado SILK SCREEN PRINTER Work Phone: [facility] 05-08-2023 14:56-0500 Body mass index (BMI) [Ratio] 30.3 kg/m2 [employer]CRE[employer] Deiv Delgado [employer]ILK SCREEN PRINTER Work Phone: [facility] 05-08-2023 14:56-0500 Body temperature 98.7 [degF] [employer] PRINTER[employer] Devi Delgado SILK SCREEN PRINTER Work Phone: [facility] 05-08-2023 14:56-0500 Body weight 68.15 kg [employer] SCRE[employer] PRINTER[employer]C Devi Delgado SILK SCREEN PRINTER Work Phone: [facility] 05-08-2023 14:56-0500 Diastolic blood pressure 76 mm[Hg] [employer]INTER[employer] Devi Delgado SILK SCREEN PRINTER Work Phone: [facility] 05-08-2023 14:56-0500 Heart rate 70 /min [employer] Devi Delgado SILK SCREEN PRINTER Work Phone: [facility] 05-08-2023 14:56-0500 Respiratory rate 16 /min [employer]CRE[employer] Devi Delgado SILK SCREEN PRINTER Work Phone: [facility] 05-08-2023 14:56-0500 SaO2% (BldA) [Mass fraction] 97 % [employer] Devi Delgado SILK SCREEN PRINTER Work Phone: [facility] 05-08-2023 14:56-0500 Systolic blood pressure 146 mm[Hg] [employer] Devi Delgado SILK SCREEN PRINTER Work Phone: [facility] 03-31-2023 14:55-0500 Body height 149.86 cm SILK SCRE[employer] PRINTER[employer]C Devi Delgado SILK SCREEN PRINTER Work Phone: [facility] 03-31-2023 14:55-0500 Body mass index (BMI) [Ratio] 29 kg/m2 [employer] Devi Delgado SILK SCREEN PRINTER Work Phone: [facility] 03-31-2023 14:55-0500 Body temperature 98.3 [degF] [employer]INTER[employer] Devi Delgado SILK SCREEN PRINTER Work Phone: [facility] 03-31-2023 14:55-0500 Body weight 65.31 kg [employer] SCRE[employer] PRINTER[employer]C Devi Delgado SILK SCREEN PRINTER Work Phone: [facility] 03-31-2023 14:55-0500 Diastolic blood pressure 74 mm[Hg] [employer]INTER[employer]C Dvei Delgado SILK SCREEN PRINTER Work Phone: [facility] 03-31-2023 14:55-0500 Heart rate 76 /min [employer]CRE[employer] Devi Delgado SILK SCREEN PRINTER Work Phone: [facility] 03-31-2023 14:55-0500 Respiratory rate 16 /min [employer]CRE[employer] PR[employer]C Devi Delgado SILK SCREEN PRINTER Work Phone: [facility] 03-31-2023 14:55-0500 SaO2% (BldA) [Mass fraction] 98 % [employer]C Devi Delgado SILK SCREEN PRINTER Work Phone: [facility] 03-31-2023 14:55-0500 Systolic blood pressure 140 mm[Hg] [employer]CRE[employer] PRINTER[employer]C Devi Delgado SILK SCREEN PRINTER Work Phone: [facility] 03-21-2023 14:54-0400 Body mass index (BMI) [Ratio] 29.2 kg/m2 [employer]C Devi Delgado SILK SCREEN PRINTER Work Phone: [facility] 03-21-2023 14:54-0400 Body weight 65.77 kg S[employer] SCRE[employer] PRINTER[employer]C Devi Delgado SILK SCREEN PRINTER Work Phone: [facility] 03-21-2023 14:54-0400 Diastolic blood pressure 70 mm[Hg] [employer]INTER[employer] Devi Delgado SILK SCREEN PRINTER Work Phone: [facility] 03-21-2023 14:54-0400 Heart rate 72 /min [employer]CRE[employer]C Devi Delgado SILK SCREEN PRINTER Work Phone: [facility] 03-21-2023 14:54-0400 Systolic blood pressure 112 mm[Hg] [employer]CRE[employer] PRINTER[employer]C Devi Delgado SILK SCREEN PRINTER Work Phone: [facility] 02-16-2023 13:52-0400 Body mass index (BMI) [Ratio] 28.8 kg/m2 [employer]C Devi Delgado SILK SCREEN PRINTER Work Phone: [facility] 02-16-2023 13:52-0400 Body temperature 96.8 [degF] [employer] PRINTER[employer]C Devi Delgado SILK SCREEN PRINTER Work Phone: [facility] 02-16-2023 13:52-0400 Body weight 64.63 kg [employer] SCRE[employer] PRINTER[employer]C Devi Delgado SILK SCREEN PRINTER Work Phone: [facility] 02-16-2023 13:52-0400 Diastolic blood pressure 74 mm[Hg] [employer] PRINTER[employer]C Devi Delgado SILK SCREEN PRINTER Work Phone: [facility] 02-16-2023 13:52-0400 Heart rate 75 /min [employer] Devi Delgado SILK SCREEN PRINTER Work Phone: [facility] 02-16-2023 13:52-0400 Respiratory rate 18 /min [employer]CRE[employer] Devi Delgado SILK SCREEN PRINTER Work Phone: [facility] 02-16-2023 13:52-0400 SaO2% (BldA) [Mass fraction] 99 % [employer] SCRE[employer] PRINTER-C Devi Delgado SILK SCREEN PRINTER Work Phone: [facility] 02-16-2023 13:52-0400 Systolic blood pressure 138 mm[Hg] [employer]INTER[employer]C Devi Delgado SILK SCREEN PRINTER Work Phone: [facility] 01-24-2023 16:11-0400 Diastolic blood pressure 86 mm[Hg] [employer]INTER[employer] Devi Delgado SILK SCREEN PRINTER Work Phone: [facility] 01-24-2023 16:11-0400 Systolic blood pressure 136 mm[Hg] [employer]CRE[employer] PRINTER[employer]C Devi Delgado SILK SCREEN PRINTER Work Phone: [facility] 01-24-2023 14:05-0400 Body mass index (BMI) [Ratio] 28.3 kg/m2 [employer]CRE[employer] PR[employer]-C Devi Delgado SILK SCREEN PRINTER Work Phone: [facility] 01-24-2023 14:05-0400 Body temperature 96.1 [degF] [employer]INTER[employer]C Devi Delgado SILK SCREEN PRINTER Work Phone: [facility] 01-24-2023 14:05-0400 Body weight 63.61 kg S[employer] SCREEN PRINTER-C Devi Delgado SILK SCREEN PRINTER Work Phone: [facility] 01-24-2023 14:05-0400 Heart rate 74 /min [employer]CRE[employer]-C Devi Delgado SILK SCREEN PRINTER Work Phone: [facility] 01-24-2023 14:05-0400 Respiratory rate 18 /min [employer] SCRE[employer] PRINTER[employer]C Devi Delgado SILK SCREEN PRINTER Work Phone: [facility] 01-24-2023 14:05-0400 SaO2% (BldA) [Mass fraction] 98 % [employer] SCRE[employer] PRINTER-C Devi Delgado SILK SCREEN PRINTER Work Phone: [facility] 11-17-2022 15:20-0400 Body height 149.[address] Pat Bennett Work Phone: [facility] 11-17-2022 15:20-0400 Body mass index (BMI) [Ratio] 27.8 kg/m2 Dr. Pat Bennett Work Phone: [facility] 11-17-2022 15:20-0400 Body temperature 97.8 [degF] Dr. Pat Bennett Work Phone: [facility] 11-17-2022 15:20-0400 Body weight 62.[address] Pat Bennett Work Phone: [facility] 11-17-2022 15:20-0400 Diastolic blood pressure 64 mm[Hg] Dr. Pat Bennett Work Phone: [facility] 11-17-2022 15:20-0400 Heart rate 44 /min Dr. Pat Bennett Work Phone: [facility] 11-17-2022 15:20-0400 Respiratory rate 16 /min Dr. Pat Bennett Work Phone: [facility] 11-17-2022 15:20-0400 SaO2% (BldA) [Mass fraction] 99 % Dr. Pat Bennett Work Phone: [facility] 11-17-2022 15:20-0400 Systolic blood pressure 144 mm[Hg] Dr. Pat Bennett Work Phone: [facility] 09-27-2022 15:50-0400 Body mass index (BMI) [Ratio] 26.6 kg/m2 Dr. Pat Bennett Work Phone: [facility] 09-27-2022 15:50-0400 Body temperature 98.4 [degF] Dr. Pat Bennett Work Phone: [facility] 09-27-2022 15:50-0400 Body weight 59.[address] Pat Bennett Work Phone: [facility] 09-27-2022 15:50-0400 Diastolic blood pressure 55 mm[Hg] Dr. Pat Bennett Work Phone: [facility] 09-27-2022 15:50-0400 Heart rate 58 /min Dr. Pat Bennett Work Phone: [facility] 09-27-2022 15:50-0400 Respiratory rate 16 /min Dr. Pat Bennett Work Phone: [facility] 09-27-2022 15:50-0400 SaO2% (BldA) [Mass fraction] 94 % Dr. Pat Bennett Work Phone: [facility] 09-27-2022 15:50-0400 Systolic blood pressure 126 mm[Hg] Dr. Pat Bennett Work Phone: [facility] 09-15-2022 17:56-0400 Heart rate 70 /min Dr. Pat Bennett Work Phone: [facility] 09-15-2022 17:56-0400 Respiratory rate 24 /min Dr. Pat Bennett Work Phone: [facility] 09-15-2022 17:56-0400 SaO2% (BldA) [Mass fraction] 94 % Dr. Pat Bennett Work Phone: [facility] 09-15-2022 16:57-0400 Diastolic blood pressure 78 mm[Hg] Dr. Pat Bennett Work Phone: [facility] 09-15-2022 16:57-0400 Systolic blood pressure 147 mm[Hg] Dr. Pat Bennett Work Phone: [facility] 09-15-2022 15:44-0400 Body height 149.[address] Pat Bennett Work Phone: [facility] 09-15-2022 15:44-0400 Body mass index (BMI) [Ratio] 27.7 kg/m2 Dr. Pat Bennett Work Phone: [facility] 09-15-2022 15:44-0400 Body temperature 97.9 [degF] Dr. Pat Bennett Work Phone: [facility] 09-15-2022 15:44-0400 Body weight 62.[address] Pat Bennett Work Phone: [facility] 08-17-2022 08:06-0400 Body height 149.[address] Pat Bennett Work Phone: [facility] 08-17-2022 08:06-0400 Body mass index (BMI) [Ratio] 26.5 kg/m2 Dr. Pat Bennett Work Phone: [facility] 08-17-2022 08:06-0400 Body temperature 97.8 [degF] Dr. Pat Bennett Work Phone: [facility] 08-17-2022 08:06-0400 Body weight 59.[address] Pat Bennett Work Phone: [facility] 08-17-2022 08:06-0400 Diastolic blood pressure 64 mm[Hg] Dr. Pat Bennett Work Phone: [facility] 08-17-2022 08:06-0400 Heart rate 45 /min Dr. Pat Bennett Work Phone: [facility] 08-17-2022 08:06-0400 Respiratory rate 18 /min Dr. Pat Bennett Work Phone: [facility] 08-17-2022 08:06-0400 SaO2% (BldA) [Mass fraction] 98 % Dr. Pat Bennett Work Phone: [facility] 08-17-2022 08:06-0400 Systolic blood pressure 124 mm[Hg] Dr. Pat Bennett Work Phone: [facility] 08-15-2022 20:30-0400 Diastolic blood pressure 71 mm[Hg] Text Entry Free [facility] 08-15-2022 20:30-0400 Heart rate 56 /min Text Entry Free [facility] 08-15-2022 20:30-0400 Respiratory rate 17 /min Text Entry Free [facility] 08-15-2022 20:30-0400 SaO2% (BldA) [Mass fraction] 95 % Text Entry Free [facility] 08-15-2022 20:30-0400 Systolic blood pressure 162 mm[Hg] Text Entry Free [facility] 08-15-2022 14:22-0400 Body height 180.3 cm Text Entry Free [facility] 08-15-2022 14:22-0400 Body temperature 98.24 [degF] Text Entry Free [facility] 08-15-2022 14:22-0400 Body weight 58.1 kg Text Entry Free [facility] 08-08-2022 09:48-0400 Body temperature 98.4 [degF] Dr. Pat Bennett Work Phone: [facility] 08-08-2022 09:48-0400 Diastolic blood pressure 48 mm[Hg] Dr. Pat Bennett Work Phone: [facility] 08-08-2022 09:48-0400 Heart rate 53 /min Dr. Pat Bennett Work Phone: [facility] 08-08-2022 09:48-0400 Respiratory rate 18 /min Dr. Pat Bennett Work Phone: [facility] 08-08-2022 09:48-0400 SaO2% (BldA) [Mass fraction] 99 % Dr. Pat Bennett Work Phone: [facility] 08-08-2022 09:48-0400 Systolic blood pressure 120 mm[Hg] Dr. Pat Bennett Work Phone: [facility] 08-05-2022 14:06-0400 Body height 149.[address] Pat Bennett Work Phone: [facility] 08-05-2022 14:06-0400 Body weight 61.[address] Pat Bennett Work Phone: [facility] 08-04-2022 22:40-0400 Body mass index (BMI) [Ratio] 27.3 kg/m2 Dr. Pat Bennett Work Phone: [facility] 08-04-2022 19:37-0400 Body temperature 98.1 [degF] Dr. Pat Bennett Work Phone: [facility] 08-04-2022 19:37-0400 Diastolic blood pressure 62 mm[Hg] Dr. Pat Bennett Work Phone: [facility] 08-04-2022 19:37-0400 Heart rate 76 /min Dr. Pat Bennett Work Phone: [facility] 08-04-2022 19:37-0400 Respiratory rate 18 /min Dr. Pat Bennett Work Phone: [facility] 08-04-2022 19:37-0400 SaO2% (BldA) [Mass fraction] 97 % Dr. Pat Bennett Work Phone: [facility] 08-04-2022 19:37-0400 Systolic blood pressure 164 mm[Hg] Dr. Pat Bennett Work Phone: [facility] 08-04-2022 16:52-0400 Body height 149.[address] Pat Bennett Work Phone: [facility] 08-04-2022 16:52-0400 Body mass index (BMI) [Ratio] 28.1 kg/m2 Dr. Pat Bennett Work Phone: [facility] 08-04-2022 16:52-0400 Body weight 63.[address] Pat Bennett Work Phone: [facility] 07-20-2022 16:29-0500 Diastolic blood pressure 62 mm[Hg] Dr. Pat Bennett Work Phone: [facility] 07-20-2022 16:29-0500 Heart rate 60 /min Dr. Pat Bennett Work Phone: [facility] 07-20-2022 16:29-0500 Respiratory rate 16 /min Dr. Pat Bennett Work Phone: [facility] 07-20-2022 16:29-0500 SaO2% (BldA) [Mass fraction] 96 % Dr. Pat Bennett Work Phone: [facility] 07-20-2022 16:29-0500 Systolic blood pressure 148 mm[Hg] Dr. Pat Bennett Work Phone: [facility] 07-20-2022 12:50-0500 Body mass index (BMI) [Ratio] 26.4 kg/m2 Dr. Pat Bennett Work Phone: [facility] 07-20-2022 12:50-0500 Body temperature 97.9 [degF] Dr. Pat Bennett Work Phone: [facility] 07-20-2022 12:50-0500 Body weight 59.[address] Pat Bennett Work Phone: [facility] 04-11-2022 14:31-0500 Body temperature 97.6 [degF] Dr. Pat Bennett Work Phone: [facility] 04-11-2022 14:31-0500 Body weight 59.[address] Pat Bennett Work Phone: [facility] 04-11-2022 14:31-0500 Diastolic blood pressure 81 mm[Hg] Dr. Pat Bennett Work Phone: [facility] 04-11-2022 14:31-0500 Heart rate 60 /min Dr. Pat Bennett Work Phone: [facility] 04-11-2022 14:31-0500 Respiratory rate 16 /min Dr. Pat Bennett Work Phone: [facility] 04-11-2022 14:31-0500 SaO2% (BldA) [Mass fraction] 95 % Dr. Pat Bennett Work Phone: [facility] 04-11-2022 14:31-0500 Systolic blood pressure 151 mm[Hg] Dr. Pat Bennett Work Phone: [facility] 04-04-2022 14:55-0500 Body temperature 97.8 [degF] Dr. Pat Bennett Work Phone: [facility] Work Phone: 04-04-2022 14:55-0500 Body weight 59.[address] Pat Bennett Work Phone: [facility] Work Phone: 04-04-2022 14:55-0500 Diastolic blood pressure 80 mm[Hg] Dr. Pat Bennett Work Phone: [facility] Work Phone: 04-04-2022 14:55-0500 Heart rate 61 /min Dr. Pat Bennett Work Phone: [facility] Work Phone: 04-04-2022 14:55-0500 Respiratory rate 16 /min Dr. Pat Bennett Work Phone: [facility] Work Phone: 04-04-2022 14:55-0500 SaO2% (BldA) [Mass fraction] 94 % Dr. Pat Bennett Work Phone: [facility] Work Phone: 04-04-2022 14:55-0500 Systolic blood pressure 140 mm[Hg] Dr. Pat Bennett Work Phone: [facility] Work Phone: 03-28-2022 15:17-0500 Body height 149.[address] Pat Bennett Work Phone: [facility] Work Phone: 03-28-2022 15:17-0500 Body mass index (BMI) [Ratio] 27.2 kg/m2 Dr. Pat Bennett Work Phone: [facility] Work Phone: 03-28-2022 15:17-0500 Body temperature 98.9 [degF] Dr. Pat Bennett Work Phone: [facility] Work Phone: 03-28-2022 15:17-0500 Body weight 61.[address] Pat Bennett Work Phone: [facility] Work Phone: 03-28-2022 15:17-0500 Diastolic blood pressure 70 mm[Hg] Dr. Pat Bennett Work Phone: [facility] Work Phone: 03-28-2022 15:17-0500 Heart rate 62 /min Dr. Pat Bennett Work Phone: [facility] Work Phone: 03-28-2022 15:17-0500 Respiratory rate 18 /min Dr. Pat Bennett Work Phone: [facility] Work Phone: 03-28-2022 15:17-0500 SaO2% (BldA) [Mass fraction] 98 % Dr. Pat Bennett Work Phone: [facility] Work Phone: 03-28-2022 15:17-0500 Systolic blood pressure 176 mm[Hg] Dr. Pat Bennett Work Phone: [facility] Work Phone: 02-17-2022 15:59-0400 Body height 149.86 cm Servando Clay DO [facility] Work Phone: 02-17-2022 15:59-0400 Body mass index (BMI) [Ratio] 26.56 kg/m2 Servando Clay DO Work Phone: [facility] Work Phone: 02-17-2022 15:59-0400 Body surface area Derived from formula 1.54 m2 Servando Clay DO Work Phone: [facility] Work Phone: 02-17-2022 15:59-0400 Body weight 59.65 kg Servando Clay DO Work Phone: [facility] Work Phone: 02-17-2022 15:59-0400 Diastolic blood pressure 82 mm[Hg] Servando Clay DO Work Phone: [facility] Work Phone: 02-17-2022 15:59-0400 Systolic blood pressure 120 mm[Hg] [facility] 02-07-2022 13:14-0400 Body height 149.[address] Pat Bennett Work Phone: [facility] Work Phone: 02-07-2022 13:14-0400 Body mass index (BMI) [Ratio] 25.9 kg/m2 Dr. Pat Bennett Work Phone: [facility] Work Phone: 02-07-2022 13:14-0400 Body temperature 96.2 [degF] Dr. Pat Bennett Work Phone: [facility] Work Phone: 02-07-2022 13:14-0400 Body weight 58.[address] Pat Bennett Work Phone: [facility] Work Phone: 02-07-2022 13:14-0400 Diastolic blood pressure 70 mm[Hg] Dr. Pat Bennett Work Phone: [facility] Work Phone: 02-07-2022 13:14-0400 Heart rate 53 /min Dr. Pat Bennett Work Phone: [facility] Work Phone: 02-07-2022 13:14-0400 Respiratory rate 18 /min Dr. Pat Bennett Work Phone: [facility] Work Phone: 02-07-2022 13:14-0400 SaO2% (BldA) [Mass fraction] 94 % Dr. Pat Bennett Work Phone: [facility] Work Phone: 02-07-2022 13:14-0400 Systolic blood pressure 153 mm[Hg] Dr. Pat Bennett Work Phone: [facility] Work Phone: 01-14-2022 13:05-0400 Body height 149.[address] Pat Bennett Work Phone: [facility] Work Phone: 01-14-2022 13:05-0400 Body mass index (BMI) [Ratio] 25.9 kg/m2 Dr. Pat Bennett Work Phone: [facility] Work Phone: 01-14-2022 13:05-0400 Body weight 58.[address] Pat Bennett Work Phone: [facility] Work Phone: 01-14-2022 13:05-0400 Diastolic blood pressure 70 mm[Hg] Dr. Pat Bennett Work Phone: [facility] Work Phone: 01-14-2022 13:05-0400 Heart rate 56 /min Dr. Pat Bennett Work Phone: [facility] Work Phone: 01-14-2022 13:05-0400 Respiratory rate 18 /min Dr. Pat Bennett Work Phone: [facility] Work Phone: 01-14-2022 13:05-0400 Systolic blood pressure 120 mm[Hg] Dr. Pat Bennett Work Phone: [facility] Work Phone: 01-06-2022 13:38-0400 Body height 149.86 cm Servando Clay DO Work Phone: [facility] Work Phone: 01-06-2022 13:38-0400 Body mass index (BMI) [Ratio] 25.65 kg/m2 Servando Clay DO Work Phone: [facility] Work Phone: 01-06-2022 13:38-0400 Body surface area Derived from formula 1.52 m2 Servando Clay DO Work Phone: [facility] Work Phone: 01-06-2022 13:38-0400 Body weight 57.61 kg Servando Clay DO Work Phone: [facility] Work Phone: 01-06-2022 13:38-0400 Diastolic blood pressure 70 mm[Hg] Servando Clay DO Work Phone: [facility] Work Phone: 01-06-2022 13:38-0400 Systolic blood pressure 124 mm[Hg] Servando Clay DO Work Phone: [facility] Work Phone: 12-10-2021 13:26-0400 Body height 149.[address] Pat Bennett Work Phone: [facility] Work Phone: 12-10-2021 13:26-0400 Body mass index (BMI) [Ratio] 25.6 kg/m2 Dr. Pat Bennett Work Phone: [facility] [facility] Work [facility]: 12-10-2021 13:26-0400 Body temperature 97 [degF] Dr. Pat Bennett Work Phone: [facility] Work Phone: 12-10-2021 13:26-0400 Body weight 57.[address] Pat Bennett Work Phone: [facility] Work Phone: 12-10-2021 13:26-0400 Diastolic blood pressure 82 mm[Hg] Dr. Pat Bennett Work Phone: [facility] Work Phone: 12-10-2021 13:26-0400 Heart rate 52 /min Dr. Pat Bennett Work Phone: [facility] Work Phone: 12-10-2021 13:26-0400 Respiratory rate 18 /min Dr. Pat Bennett Work Phone: [facility] Work Phone: 12-10-2021 13:26-0400 SaO2% (BldA) [Mass fraction] 97 % Dr. Pat Bennett Work Phone: [facility] Work Phone: 12-10-2021 13:26-0400 Systolic blood pressure 140 mm[Hg] Dr. Pat Bennett Work Phone: [facility] Work Phone: 11-16-2021 11:05-0400 Body temperature 98.2 [degF] Dr. Pat Bennett Work Phone: [facility] Work Phone: 11-16-2021 11:05-0400 Diastolic blood pressure 62 mm[Hg] Dr. Pat Bennett Work Phone: [facility] Work Phone: 11-16-2021 11:05-0400 Heart rate 52 /min Dr. Pat Bennett Work Phone: [facility] Work Phone: 11-16-2021 11:05-0400 Respiratory rate 17 /min Dr. Pat Bennett Work Phone: [facility] Work Phone: 11-16-2021 11:05-0400 Systolic blood pressure 104 mm[Hg] Dr. Pat Bennett Work Phone: [facility] Work Phone: 11-16-2021 10:48-0400 Body height 149.[address] Pat Bennett Work Phone: [facility] Work Phone: 11-16-2021 10:48-0400 Body mass index (BMI) [Ratio] 25 kg/m2 Dr. Pat Bennett Work Phone: [facility] Work Phone: 11-16-2021 10:48-0400 Body weight 56.[address] Pat Bennett Work Phone: [facility] Work Phone: 11-16-2021 10:48-0400 SaO2% (BldA) [Mass fraction] 100 % Dr. Pat Bennett Work Phone: [facility] Work Phone: 11-16-2021 09:46-0400 Body mass index (BMI) [Ratio] 24.6 kg/m2 Dr. Pat Bennett Work Phone: [facility] Work Phone: 11-16-2021 09:46-0400 Body temperature 97.3 [degF] Dr. Pat Bennett Work Phone: [facility] Work Phone: 11-16-2021 09:46-0400 Body weight 55.[address] Pat Bennett Work Phone: [facility] Work Phone: 11-16-2021 09:46-0400 Diastolic blood pressure 50 mm[Hg] Dr. Pat Bennett Work Phone: [facility] Work Phone: 11-16-2021 09:46-0400 Heart rate 68 /min Dr. Pat Bennett Work Phone: [facility] Work Phone: 11-16-2021 09:46-0400 Respiratory rate 16 /min Dr. Pat Bennett Work Phone: [facility] Work Phone: 11-16-2021 09:46-0400 SaO2% (BldA) [Mass fraction] 99 % Dr. Pat Bennett Work Phone: [facility] Work Phone: 11-16-2021 09:46-0400 Systolic blood pressure 90 mm[Hg] Dr. Pat Bennett Work Phone: [facility] Work Phone: 11-10-2021 09:47-0400 Body temperature 97.6 [degF] Dr. Pat Bennett Work Phone: [facility] Work Phone: 11-10-2021 09:47-0400 Diastolic blood pressure 48 mm[Hg] Dr. Pat Bennett Work Phone: [facility] Work Phone: 11-10-2021 09:47-0400 Heart rate 55 /min Dr. Pat Bennett Work Phone: [facility] Work Phone: 06-22-2022 09:47-0400 Respiratory rate 18 /min Dr. Pat Bennett Work Phone: [facility] Work Phone: 11-10-2021 09:47-0400 SaO2% (BldA) [Mass fraction] 97 % Dr. Pat Bennett Work Phone: [facility] Work Phone: 11-10-2021 09:47-0400 Systolic blood pressure 133 mm[Hg] Dr. Pat Bennett Work Phone: [facility] Work Phone: 11-08-2021 10:31-0400 Body height 149.[address] Pat Bennett Work Phone: [facility] Work Phone: 11-08-2021 10:31-0400 Body weight 55.[address] Pat Bennett Work Phone: [facility] Work Phone: 11-07-2021 21:32-0400 Body mass index (BMI) [Ratio] 24.9 kg/m2 Dr. Pat Bennett Work Phone: [facility] Work Phone: 11-07-2021 21:00-0400 Diastolic blood pressure 58 mm[Hg] Dr. Pat Bennett Work Phone: [facility] Work Phone: 11-07-2021 21:00-0400 Heart rate 67 /min Dr. Pat Bennett Work Phone: [facility] Work Phone: 11-07-2021 21:00-0400 Respiratory rate 15 /min Dr. Pat Bennett Work Phone: [facility] Work Phone: 11-07-2021 21:00-0400 SaO2% (BldA) [Mass fraction] 99 % Dr. Pat Bennett Work Phone: [facility] Work Phone: 11-07-2021 21:00-0400 Systolic blood pressure 125 mm[Hg] Dr. Pat Bennett Work Phone: [facility] Work Phone: 11-07-2021 20:04-0400 Body temperature 98.1 [degF] Dr. Pat Bennett Work Phone: [facility] Work Phone: 11-07-2021 16:36-0400 Body height 149.[address] Pat Bennett Work Phone: [facility] Work Phone: 11-07-2021 16:36-0400 Body mass index (BMI) [Ratio] 25.2 kg/m2 Dr. Pat Bennett Work Phone: [facility] Work Phone: 11-07-2021 16:36-0400 Body weight 56.[address] Pat Bennett Work Phone: [facility] Work Phone: 10-12-2021 10:34-0400 Body mass index (BMI) [Ratio] 25.6 kg/m2 Dr. Pat Bennett Work Phone: [facility] Work Phone: 10-12-2021 10:34-0400 Body weight 57.[address] Pat Bennett Work Phone: [facility] Work Phone: 10-12-2021 10:34-0400 Diastolic blood pressure 57 mm[Hg] Dr. Pat Bennett Work Phone: [facility] Work Phone: 10-12-2021 10:34-0400 Heart rate 74 /min Dr. Pat Bennett Work Phone: [facility] Work Phone: 10-12-2021 10:34-0400 Respiratory rate 22 /min Dr. Pat Bennett Work Phone: [facility] Work Phone: 10-12-2021 10:34-0400 SaO2% (BldA) [Mass fraction] 97 % Dr. Pat Bennett Work Phone: [facility] Work Phone: 10-12-2021 10:34-0400 Systolic blood pressure 110 mm[Hg] Dr. Pat eBnnett Work Phone: [facility] Work Phone: 10-12-2021 10:34-0400 Body height 149.[address] Pat Bennett Work Phone: [facility] Work Phone: 09-10-2021 13:14-0400 Diastolic blood pressure 71 mm[Hg] Pepito Joy RN [facility] 09-10-2021 13:14-0400 Heart rate 53 /min Pepito Joy RN [facility] 09-10-2021 13:14-0400 SaO2% (BldA) [Mass fraction] 94 % Pepito Joy RN [facility] 09-10-2021 13:14-0400 Systolic blood pressure 116 mm[Hg] Pepito Joy RN [facility] 08-23-2021 12:33-0400 Body height 149.9 cm Anton Zuñiga MD Work Phone: [facility] 08-23-2021 12:33-0400 Body mass index (BMI) [Ratio] 25.25 kg/m2 Anton Zuñiga MD Work Phone: [facility] 08-23-2021 12:33-0400 Body weight 56.7 kg Anton Zuñiga MD Work Phone: [facility] 08-23-2021 12:33-0400 Diastolic blood pressure 63 mm[Hg] Anton Zuñiga MD Work Phone: [facility] 08-23-2021 12:33-0400 Heart rate 58 /min Anton Zuñiga MD Work Phone: [facility] 08-23-2021 12:33-0400 Systolic blood pressure 108 mm[Hg] Anton Zuñiga MD Work Phone: [facility] 07-26-2021 13:38-0500 Body mass index (BMI) [Ratio] 24.8 kg/m2 Dr. Pat Bennett Work Phone: [facility] Work Phone: 07-26-2021 13:38-0500 Body temperature 96.7 [degF] Dr. Pat Bennett Work Phone: [facility] Work Phone: 07-26-2021 13:38-0500 Body weight 55.[address] Pat Bennett Work Phone: [facility] Work Phone: 07-26-2021 13:38-0500 Diastolic blood pressure 70 mm[Hg] Dr. Pat Bennett Work Phone: [facility] Work Phone: 07-26-2021 13:38-0500 Heart rate 62 /min Dr. Pat Bennett Work Phone: [facility] Work Phone: 07-26-2021 13:38-0500 Respiratory rate 16 /min Dr. Pat Bennett Work Phone: [facility] Work Phone: 07-26-2021 13:38-0500 SaO2% (BldA) [Mass fraction] 98 % Dr. Pat Bennett Work Phone: [facility] Work Phone: 07-26-2021 13:38-0500 Systolic blood pressure 120 mm[Hg] Dr. Pat Bennett Work Phone: [facility] Work Phone: 07-26-2021 12:38-0500 Body mass index (BMI) [Ratio] 24.8 kg/m2 Dr. Pat Bennett Work Phone: [facility] Work Phone: 07-26-2021 12:38-0500 Body temperature 96.7 [degF] Dr. Pat Bennett Work Phone: [facility] Work Phone: 07-26-2021 12:38-0500 Body weight 55.[address] Pat Bennett Work Phone: [facility] Work Phone: 07-26-2021 12:38-0500 Diastolic blood pressure 70 mm[Hg] Dr. Pat Bennett Work Phone: [facility] Work Phone: 07-26-2021 12:38-0500 Heart rate 62 /min Dr. Pat Bennett Work Phone: [facility] Work Phone: 07-26-2021 12:38-0500 Respiratory rate 16 /min Dr. Pat Bennett Work Phone: [facility] Work Phone: 07-26-2021 12:38-0500 SaO2% (BldA) [Mass fraction] 98 % Dr. Pat Bennett Work Phone: [facility] Work Phone: 07-26-2021 12:38-0500 Systolic blood pressure 120 mm[Hg] Dr. Pat Bennett Work Phone: [facility] Work Phone: 07-03-2021 17:35-0500 Body temperature 97.4 [degF] Dr. Pat Bennett Work Phone: [facility] Work Phone: 07-03-2021 17:35-0500 Diastolic blood pressure 78 mm[Hg] Dr. Pat Bennett Work Phone: [facility] Work Phone: 07-03-2021 17:35-0500 Heart rate 62 /min Dr. Pat Bennett Work Phone: [facility] Work Phone: 07-03-2021 17:35-0500 Respiratory rate 14 /min Dr. Pat Bennett Work Phone: [facility] Work Phone: 07-03-2021 17:35-0500 SaO2% (BldA) [Mass fraction] 98 % Dr. Pat Bennett Work Phone: [facility] Work Phone: 07-03-2021 17:35-0500 Systolic blood pressure 122 mm[Hg] Dr. Pat Bennett Work Phone: [facility] Work Phone: 07-03-2021 14:09-0500 Body mass index (BMI) [Ratio] 27.6 kg/m2 Dr. Pat Bennett Work Phone: [facility] Work Phone: 07-03-2021 14:09-0500 Body weight [address] Pat Bennett Work Phone: [facility] Work Phone: 03-17-2021 19:00-0400 Diastolic blood pressure 70 mm[Hg] Text Entry Free [facility] 03-17-2021 19:00-0400 Heart rate 60 /min Text Entry Free [facility] 03-17-2021 19:00-0400 Respiratory rate 17 /min Text Entry Free [facility] 03-17-2021 19:00-0400 SaO2% (BldA) [Mass fraction] 96 % Text Entry Free [facility] 03-17-2021 19:00-0400 Systolic blood pressure 144 mm[Hg] Text Entry Free [facility] 03-17-2021 16:57-0400 Body height 149.8 cm Text Entry Free [facility] 03-17-2021 16:57-0400 Body temperature 98.06 [degF] Text Entry Free [facility] 03-17-2021 16:57-0400 Body weight 59.1 kg Text Entry Free [facility] 02-11-2020 15:02-0400 BMI (Body Mass Index) 26.85 kg/m2 [facility] 02-11-2020 15:02-0400 Body Temperature 98.6 [degF] Marzena [facility] [facility] 02-11-2020 15:02-0400 Body weight 60.3 kg Marzena [facility] 02-11-2020 15:02-0400 Height 149.9 cm [facility] 01-30-2020 10:19-0400 BP Diastolic 74 mm[Hg] [facility] 01-30-2020 10:19-0400 BP Systolic 167 mm[Hg] [facility] 01-30-2020 10:19-0400 Pulse (Heart Rate) 61 /min [facility] [employer] [facility] 01-30-2020 10:19-0400 Pulse Oximetry 96 % [facility] 01-30-2020 10:19-0400 Respiratory Rate 16 /min [facility] [employer] [facility] 01-30-2020 09:49-0400 Body Temperature 98.2 [degF] [facility] [employer] [facility] 01-30-2020 08:55-0400 BMI (Body Mass Index) 26.86 kg/m2 [facility] [employer] [facility] 01-30-2020 08:55-0400 Body weight 60.33 kg [facility] [employer] [facility] 01-30-2020 08:55-0400 Height 149.9 cm [facility] 01-21-2020 13:06-0400 BMI (Body Mass Index) 26.86 kg/m2 Marzena [facility] 01-21-2020 13:06-0400 Body Temperature 98.01 [degF] [facility] 01-21-2020 13:06-0400 Body weight 60.33 kg [facility] 01-21-2020 13:06-0400 Height 149.9 cm Marzena [facility] 01-01-2020 13:06-0400 BMI (Body Mass Index) 26.86 kg/m2 Servando Clay [facility] Work Phone: 01-01-2020 13:06-0400 Body Temperature 98.2 [degF] Servando Clay [facility] Work Phone: 01-01-2020 13:06-0400 Body weight 60.33 kg Servando Clay [facility] Work Phone: 01-01-2020 13:06-0400 BP Diastolic 86 mm[Hg] Servando Clay [facility] Work Phone: 01-01-2020 13:06-0400 BP Systolic 130 mm[Hg] Servando Clay [facility] Work Phone: 01-01-2020 13:06-0400 BSA (Body Surface Area) 1.55 m2 Servando Clay [facility] Work Phone: 01-01-2020 13:06-0400 Height 149.86 cm Servando Clay [facility] Work Phone: 12-24-2019 13:19-0400 BMI (Body Mass Index) 27.02 kg/m2 [facility] 12-24-2019 13:19-0400 Body Temperature 98.01 [degF] [facility] 12-24-2019 13:19-0400 Body weight 60.69 kg [facility] 12-24-2019 13:19-0400 Height 149.9 cm [facility] 10-16-2019 11:30-0400 Body Temperature 97.59 [degF] [facility] 10-16-2019 11:30-0400 BP Diastolic 69 mm[Hg] [facility] 10-16-2019 11:30-0400 BP Systolic 157 mm[Hg] [facility] 10-16-2019 11:30-0400 Pulse (Heart Rate) 58 /min [facility] 10-16-2019 11:30-0400 Pulse Oximetry 96 % [facility] 10-16-2019 11:30-0400 Respiratory Rate 16 /min [facility] 10-15-2019 23:16-0400 BMI (Body Mass Index) 28.05 kg/m2 [facility] 10-15-2019 23:16-0400 Body weight 63.01 kg [facility] 10-15-2019 23:16-0400 Height 149.9 cm [facility] 05-30-2019 13:31-0500 BMI (Body Mass Index) 26.86 kg/m2 [facility] 05-30-2019 13:31-0500 Body Temperature 98.29 [degF] [facility] 05-30-2019 13:31-0500 Body weight 60.33 kg [facility] 05-30-2019 13:31-0500 Height 149.9 cm [facility] 04-15-2019 13:42-0500 BMI (Body Mass Index) 25.78 kg/m2 [facility] 13:42-0500 Body Temperature 98.29 [degF] [facility] 04-15-2019 13:42-0500 Body weight 59.88 kg [facility] 04-15-2019 13:42-0500 Height 152.4 cm [facility] 04-03-2019 13:04-0500 BMI (Body Mass Index) 26.05 kg/m2 [facility] 04-03-2019 13:04-0500 Body Temperature 98.49 [degF] [facility] 04-03-2019 13:04-0500 Body weight 60.5 kg [facility] 04-03-2019 13:04-0500 Height 152.4 cm [facility] 03-15-2019 12:42-0400 BMI (Body Mass Index) 26.17 kg/m2 [facility] 03-15-2019 12:42-0400 Body Temperature 98.2 [degF] [facility] 03-15-2019 12:42-0400 Body weight 60.78 kg [facility] 03-15-2019 12:42-0400 Height 152.4 cm [facility] 03-04-2019 13:24-0400 BMI (Body Mass Index) 26.17 kg/m2 [facility] 03-04-2019 13:24-0400 Body Temperature 97.59 [degF] [facility] 03-04-2019 13:24-0400 Body weight 60.78 kg [facility] 03-04-2019 13:24-0400 BP Diastolic 70 mm[Hg] [facility] 03-04-2019 13:24-0400 BP Systolic 128 mm[Hg] [facility] 03-04-2019 13:24-0400 Pulse (Heart Rate) 84 /min [facility] 03-04-2019 13:24-0400 Pulse Oximetry 93 % [facility] 05-03-2018 19:44-0500 Body Temperature 98.49 [degF] [facility] Work Phone: 05-03-2018 19:44-0500 BP Diastolic 93 mm[Hg] [facility] Work Phone: 05-03-2018 19:44-0500 BP Systolic 228 mm[Hg] [facility] Work Phone: 05-03-2018 19:44-0500 Pulse (Heart Rate) 60 /min [facility] Work Phone: 05-03-2018 19:44-0500 Pulse Oximetry 98 % [facility] Work Phone: 05-03-2018 19:44-0500 Respiratory Rate 22 /min [facility] Work Phone: 05-03-2018 17:21-0500 Height 152.4 cm [facility] Work Phone: Encounters Encounter Date Encounter Type Care Provider Facility Start: 02-05-2025 Evaluation and manag ement of inpatient Dr. Denise Uribe MD Work Phone: -Progressive Care Unit Start: 02-05-2025 Dr. Carol Petty MD -Dc ogressive Care Unit Work Phone: Start: 01-06-2025 End: 01-06-2025 Seth Ulrich [employer]INTER-C -[facility] Work Phone: Start: 01-06-2025 End: 01-06-[address] Denise Uribe MD Work Phone: -[facility] Start: 01-06-2025 End: 01-06-2025 ambulatory Denise Uribe Facility:[facility] Start: 11-15-2024 End: 11-15-2024 Dr. Denise Uribe MD Work Phone: -Emergency Department Work Phone: Start: 11-15-2024 End: 11-15-2024 Emergency department patient visit Dr. Denise Uribe MD Work Phone: -Emergency Department Start: 09-19-2024 Dr. Bassem Schwartz MD -[facility] Work Phone: Start: 09-18-2024 Dr. Franck Butler MD -[facility] Start: 09-17-2024 ambulatory Denise Uribe Facility :[facility] Start: 09-17-2024 End: 09-19-2024 Evaluation and management of inpatient Dr. Denise Uribe MD Work Phone: [facility] Work Phone: Start: 09-17-2024 End: 09-19-2024 Dr. Jailyn Wiggins MD -Progressive Care Unit Work Phone: Start: 08-07-2024 End: 08-07-2024 Dr. Denise Uribe MD -Medical Out Work Phone: Start: 08-07-2024 End: 08-07-[address] Denise Uribe MD Work Phone: [facility] Work Phone: Start: 07-24-2024 End: 07-24-[address] Denise Uribe MD Work Phone: [facility] Work Phone: Start: 07-24-2024 End: 07-24-2024 Dr. Denise Uribe MD -Laboratory, [facility] Start: 07-24-2024 End: 07-24-2024 Dr. Denise Uribe MD -[facility] Work Phone: Start: 07-24-2024 End: 07-24-2024 ambulatory Denise Jojo Facility:[facility] Start: 07-24-2024 End: 07-24-2024 ambulatory Denise Morrill Facility:[facility] Start: 06-18-2024 Dr. Devi perrin DO -[facility] Work Phone: Start: 06-17-2024 Dr. Devi perrin DO -[facility] Work Phone: Start: 06-16-2024 ambulatory Denise Morrill Facility :[facility] Start: 06-16-2024 End: 06-18-2024 Evaluation and management of inpatient Denise Morrill Facility:[facility] Start: 06-16-2024 End: 06-18-2024 Dr. Devi Paredes DO -Medical Surgical 3 Work Phone: Start: 05-22-2024 Dr. Harry Iniguez MD -[facility] Work Phone: Start: 05-22-2024 [facility] Start: 05-21-2024 Dr. Harry Iniguez MD -[facility] Work Phone: Start: 05-20-2024 Dr. Harry Iniguez MD -[facility] Work Phone: Start: 05-20-2024 [facility] Start: 05-19-2024 Dr[facility] Start: 05-19-2024 Dr. Jailyn dave MD -[facility] Work Phone: Start: 05-18-2024 End: 05-18-2024 ambulatory [facility] Facility:[facility] Start: 05-18-2024 End: 05-18-2024 Dr. Hernando Colón MD -[facility] Work Phone: Start: 05-18-2024 Dr. [facility] Start: 05-18-2024 Dr. Jailyn dave MD -[facility] Work Phone: Start: 05-17-2024 ambulatory [facility] Facility :[facility] Start: 05-17-2024 [facility] Start: 05-17-2024 Dr. Jailyn dave MD -[facility] Work Phone: Start: 05-16-2024 [facility] Start: 05-16-2024 Dr. Jailyn dave MD -[facility] Work Phone: Start: 05-15-2024 Dr. [facility]ie [facility]ley [facility] Start: 05-15-2024 Dr. Jailyn dave MD -[facility] Work Phone: Start: 05-14-2024 [facility] Start: 05-14-2024 End: 05-14-2024 ambulatory Bassem Diamond Facility:[facility] Start: 05-14-2024 End: 05-14-2024 Dr. Hernando Colón MD -[facility] Work Phone: Start: 05-14-2024 Dr. Jailyn dave MD -[facility] Work Phone: Start: 05-13-2024 ambulatory Bassem Diamond Facili ty:[facility] Start: 05-13-2024 End: 05-22-2024 Evaluation and management of inpatient Bassem Diamond Facility:[facility] Start: 05-13-2024 End: 05-22-2024 Dr. Harry Iniguez MD -Progressive Care Unit Work Phone: Start: 04-22-2024 ambulatory Denise Morrill Facility :[facility] Start: 04-22-2024 Dr. Mel Beaver MD -[facility] Start: 04-22-2024 ambulatory Carrillo Handley Facility:[facility] Start: 04-22-2024 Dr. Carrillo Handley MD -[facility] Start: 04-22-2024 End: 04-22-2024 Humaira MUNOZ -Cardiovascular Services Work Phone: Start: 04-22-2024 End: 04-22-2024 ambulatory Denise Jojo Facility:[facility] Start: 03-26-2024 End: 03-26-2024 ambulatory Denise Jojo Facility:[facility] Start: 03-26-2024 ambulatory Denise Morrill Facility :[facility] Start: 03-21-2024 End: 03-21-2024 ambulatory Denise Jojo Facility:[facility] Start: 03-20-2024 End: 03-20-2024 ambulatory Denise Morrill Facility:[facility] Start: 03-20-2024 End: 03-20-2024 ambulatory Denise Morrill Facility:[facility] Start: 03-18-2024 ambulatory Desiree Ferullo Facility: [facility] Start: 03-18-2024 End: 03-18-2024 ambulatory Desiree Ferullo Facility:[facility] Start: 02-23-2024 End: 02-23-[address] [facility] Start: 02-19-2024 End: 02-19-2024 ambulatory Desiree Ferullo Facility:[facility] Start: 01-29-2024 End: 01-29-2024 Emergency department patient visit Denise Uribe Facility:[facility] Start: 09-14-2023 End: 09-14-[address] Denise Uribe Work Phone: [facility] Work Phone: Start: 09-14-2023 End: 09-14-2023 Dr. Denise Uribe Work Phone: [facility] Work Phone: Start: 09-11-2023 End: 09-11-2023 Emergency department patient visit Dr. Denise Uribe Work Phone: [facility] Work Phone: Start: 09-11-2023 End: 09-11-2023 Dr. Denise Uribe Work Phone: [facility]-Emergency Department Work Phone: Start: 08-17-2023 End: 08-17-[address] Denise Uribe Work Phone: [facility] Work Phone: Start: 08-17-2023 End: 08-17-[address] Denise Uribe Work Phone: [facility]atory, [facility] Start: 08-17-2023 End: 08-17-2023 Dr[facility] Start: 08-17-2023 End: 08-17-[address] Denise Uribe Work Phone: [facility] Work Phone: Start: 08-17-2023 End: 08-17-2023 Dr. Denise Uribe Work Phone: [facility] Work Phone: Start: 08-08-2023 Non-patient / Non-visit Dr. Bean Work Phone: [facility] Start: 08-08-2023 End: 08-08-[address] Denise Uribe Work Phone: [facility] Work Phone: Start: 08-08-2023 End: 08-08-[address] [facility]: Start: 08-08-2023 End: 08-08-2023 Dr. Denise Uribe Work Phone: [facility] Start: 07-21-2023 End: 07-21-[address] Denise Uribe Work Phone: [facility] Work Phone: Start: 07-21-2023 End: 07-21-2023 Dr. Denise Uribe Work Phone: [facility] Work Phone: Start: 07-11-2023 End: 07-11-2023 ambulatory SILK SCREEN PRINTER-C Devi Delgado SILK SCREEN PRINTER Work Phone: [facility] Work Phone: Start: 07-11-2023 End: 07-11-2023 Patient encounter procedure SILK SCREEN PRINTER-C Devi Delgado SILK SCREEN PRINTER Work Phone: [facility]-Radiology, [facility] Work Phone: Start: 07-11-2023 End: 07-11-2023 Dr. Denise Uribe Work Phone: [facility]-Radiology, [facility] Work Phone: Start: 07-11-2023 End: 07-11-2023 Patient encounter procedure SILK SCREEN PRINTER-C Devi Delgado SILK SCREEN PRINTER Work Phone: [facility] Work Phone: Start: 07-11-2023 End: 07-11-2023 Dr. Denise Uribe Work Phone: [facility] Work Phone: Start: 07-07-2023 End: 07-07-2023 Patient encounter procedure SILK SCREEN PRINTER-C Devi Delgado SILK SCREEN PRINTER Work Phone: [facility] Work Phone: Start: 07-07-2023 End: 07-07-2023 Dr. Denise Uribe Work Phone: [facility] Work Phone: Start: 07-07-2023 End: 07-07-2023 Patient encounter procedure SILK SCREEN PRINTER-C Devi Delgado SILK SCREEN PRINTER Work Phone: [facility] Work Phone: Start: 07-07-2023 End: 07-07-2023 Dr. Denise Uribe Work Phone: [facility] Work Phone: Start: 05-08-2023 End: 05-08-2023 Patient encounter procedure SILK SCREEN PRINTER-C Devi Delgado SILK SCREEN PRINTER Work Phone: [facility] Work Phone: Start: 03-31-2023 End: 03-31-2023 Patient encounter procedure SILK SCREEN PRINTER-C Devi Delgado SILK SCREEN PRINTER Work Phone: [facility] Work Phone: Start: 03-31-2023 End: 03-31-2023 ambulatory SILK SCREEN PRINTER-C Devi Delgado SILK SCREEN PRINTER Work Phone: [facility] Work Phone: Start: 03-31-2023 End: 03-31-2023 Patient encounter procedure SILK SCREEN PRINTER-C Devi Delgado SILK SCREEN PRINTER Work Phone: [facility] Ul[facility] Work Phone: Start: 03-21-2023 End: 03-21-2023 Patient encounter procedure SILK SCREEN PRINTER-C Devi Delgado SILK SCREEN PRINTER Work Phone: [facility] Work Phone: Start: 02-16-2023 End: 02-16-2023 Patient encounter procedure SILK SCREEN PRINTER-C Devi Delgado SILK SCREEN PRINTER Work Phone: [facility] Work Phone: Start: 01-24-2023 End: 01-24-2023 Patient encounter procedure SILK SCREEN PRINTER-C Devi Delgado SILK SCREEN PRINTER Work Phone: [facility] Work Phone: Start: 12-20-2022 End: 12-20-2022 ambulatory SILK SCREEN PRINTER-C Devi Delgado SILK SCREEN PRINTER Work Phone: [facility] Work Phone: Start: 12-20-2022 End: 12-20-2022 Patient encounter procedure SILK SCREEN PRINTER-C Devi Delgado SILK SCREEN PRINTER Work Phone: [facility] Work Phone: Start: 12-08-2022 End: 12-08-2022 Patient encounter procedure SILK SCREEN PRINTER-C Devi Deglado SILK SCREEN PRINTER Work Phone: [facility] Work Phone: Start: 11-28-2022 End: 11-28-[address] Pat Bennett Work Phone: [facility] Work Phone: Start: 11-28-2022 End: 11-28-2022 Patient encounter procedure SILK SCREEN PRINTER-C Devi Delgado SILK SCREEN PRINTER Work Phone: [facility]-Ultrasound, [facility] Work Phone: Start: 11-28-2022 End: 11-28-2022 Dr. Pat Bennett Work Phone: [facility]-Ultrasound, [facility] Work Phone: Start: 11-17-2022 End: 11-17-2022 Patient encounter procedure SILK SCREEN PRINTER-C Devi Delgado SILK SCREEN PRINTER Work Phone: [facility]-Radiology, [facility] Work Phone: Start: 11-17-2022 End: 11-17-2022 Dr. Pat Bennett Work Phone: [facility]-Radiology, [facility] Work Phone: Start: 11-17-2022 End: 11-17-2022 Patient encounter procedure SILK SCREEN PRINTER-C Devi Delgado SILK SCREEN PRINTER Work Phone: [facility] Work Phone: Start: 11-17-2022 End: 11-17-2022 Dr. Pat Bennett Work Phone: [facility] Work Phone: Start: 09-27-2022 End: 09-27-2022 Patient encounter procedure SILK SCREEN PRINTER-C Devi Delgado SILK SCREEN PRINTER Work Phone: [facility] Work Phone: Start: 09-27-2022 End: 09-27-2022 Dr. Pat Bennett Work Phone: [facility] Work Phone: Start: 09-15-2022 End: 09-15-2022 Emergency department patient visit Dr. Pat Bennett Work Phone: [facility] Work Phone: Start: 09-15-2022 End: 09-15-2022 Dr. Pat Bennett Work Phone: [facility]-Emergency Department Start: 08-17-2022 End: 08-17-[address] Pat Bennett Work Phone: [facility] Work Phone: Start: 08-17-2022 End: 08-17-[address] Pat Bennett Work Phone: [facility] Medicine Start: 08-17-2022 End: 08-17-2022 Dr. Pat Bennett Work Phone: [facility] Medicine Start: 08-15-2022 End: 08-15-2022 Emergency department patient visit Yudy Yuliana [facility] Emergency 14 Start: 08-08-2022 Non-patient / Non-visit Dr. Dominique Bennett Work Phone: [facility] Start: 08-08-2022 Dr. Pat clementer Work Phone: [facility] Start: 08-07-2022 Non-patient / Non-visit Dr. Dominique Bennett Work Phone: [facility] Start: 08-07-2022 Dr. Pat Rowell hner Work Phone: [facility] Start: 08-06-2022 Non-patient / Non-visit Dr. Dominique Bennett Work Phone: [facility] Start: 08-06-2022 Dr. Pat Rowell hner Work Phone: [facility] Start: 08-06-2022 Non-patient / Non-visit Dr. Dominique Bennett Work Phone: [facility] Start: 08-06-2022 Dr. Pat Rowell hner Work Phone: [facility] Start: 08-05-2022 Non-patient / Non-visit Dr. Dominique Bennett Work Phone: [facility] Start: 08-05-2022 Dr. Pat [facility]ell [facility] Work Phone: [facility] Start: 08-04-2022 End: 08-08-2022 Evaluation and management of inpatient Dr. Pat Bennett [facility] Start: 08-04-2022 End: 08-08-2022 Dr. Pat Bennett Work Phone: [facility] Surgical 3 Start: 07-20-2022 End: 07-20-2022 Emergency department patient visit Dr. Pat Bennett Work Phone: [facility]-Emergency Department Start: 07-20-2022 End: 07-20-2022 Dr. Pat Bennett Work Phone: [facility]-Emergency Department Start: 04-20-2022 End: 04-20-[address] Pat Bennett Work Phone: [facility] Work Phone: Start: 04-20-2022 End: 04-20-[address] Pat Bennett Work Phone: [facility]-Laboratory, Phy Office 3rd Flr Start: 04-11-2022 End: 04-11-[address] Pat Bennett Work Phone: [facility] [place] Start: 04-06-2022 Rx Renewal Servando Clay DO Work Phone: [facility] Work Phone: Start: 04-04-2022 End: 04-04-[address] Pat Bennett Work Phone: [facility] [place] Start: 03-28-2022 End: 03-28-2022 Emergency department patient visit Dr. Pat Bennett Work Phone: [facility]-Emergency Department Start: 03-16-2022 Chart Update Servando Clay DO Work Phone: [facility] Work Phone: Start: 03-16-2022 End: 03-16-2022 ambulatory Provider Pending Facility:[id number] Start: 02-17-2022 Office outpatient vi sit 15 minutes Provider AMAProvider Work Phone: [facility] Work Phone: Start: 02-17-2022 ambulatory SERVANDO CLAY Facility:[id number] Start: 02-07-2022 End: 02-07-[address] Pat Bennett Work Phone: [facility] Work Phone: Start: 02-07-2022 End: 02-07-[address] Pat Bennett Work Phone: [facility]-Laboratory Start: 02-07-2022 End: 02-07-[address] Pat Bennett Work Phone: [facility] Endocrinology Start: 02-01-2022 Non-patient / Non-visit Dr. Dominique Bennett Work Phone: [facility] Start: 02-01-2022 End: 02-01-[address] Pat Bennett Work Phone: [facility] Work Phone: Start: 02-01-2022 End: 02-01-[address] Pat Bennett Work Phone: [facility]-Cardiovascular Services Start: 01-14-2022 End: 01-14-[address] Pat Bennett Work Phone: [facility] Work Phone: Start: 01-14-2022 End: 01-14-[address] Pat Bennett Work Phone: [facility]-Laboratory Start: 01-14-2022 End: 01-14-[address] Pat Bennett Work Phone: [facility] Start: 01-06-2022 Office outpatient ne w 30 minutes Servando Clay DO Work [facility]: [facility] [place] [id number] Work Phone: Start: 01-06-2022 ambulatory Provider Pending Facili ty:[id number] Start: 12-10-2021 End: 12-10-[address] Pat Bennett Work Phone: [facility] Internal Medicine Start: 11-16-2021 End: 11-16-2021 Emergency department patient visit Dr. Pat Bennett Work Phone: [facility]-Emergency Department Start: 11-16-2021 End: 11-16-[address] Pat Bennett Work Phone: [facility] Medicine Start: 11-11-2021 Non-patient / Non-visit Dr. Dominique Bennett Work Phone: [facility] Start: 11-11-2021 End: 11-11-[address] Pat Bennett Work Phone: [facility]-Pulmonary Services/Neurology Start: 11-10-2021 Non-patient / Non-visit Dr. Dominique Bennett Work Phone: [facility] Start: 11-10-2021 Non-patient / Non-visit Dr. Dominique Bennett Work Phone: [facility] Start: 11-09-2021 Non-patient / Non-visit Dr. Dominique Bennett Work Phone: [facility] Start: 11-09-2021 Non-patient / Non-visit Dr. Dominique Bennett Work Phone: [facility] Start: 11-08-2021 Non-patient / Non-visit Dr. Dominique Bennett Work Phone: [facility] Start: 11-08-2021 Non-patient / Non-visit Dr. Dominique Bennett Work Phone: [facility] Start: 11-07-2021 Non-patient / Non-visit Dr. Dominique Bennett Work Phone: [facility] Start: 11-07-2021 End: 11-10-2021 Evaluation and management of inpatient Dr. Pat Bennett [facility] Start: 11-05-2021 Non-patient / Non-visit Dr. Dominique Bennett Work Phone: [facility] Start: 11-05-2021 End: 11-05-[address] Pat Bennett Work Phone: [facility]-Cardiovascular Services Start: 10-21-[address] [facility] Bennett [facility] Start: 10-21-2021 Non-patient / Non-visit Dr. Dominique Bennett Work Phone: [facility] Start: 10-19-2021 End: 10-19-[address] Pat Bennett Work Phone: [facility]-Laboratory Start: 10-12-2021 End: 10-12-[address] Pat Bennett Work Phone: [facility] Start: 09-15-2021 End: 09-16-2021 ambulatory PHYSICIAN [facility] Start: 09-14-2021 End: 09-18-2021 ambulatory ANTON ZUÑIGA [facility] Start: 09-10-2021 End: 09-10-2021 Clinical Support Anton Zuñiga MD Work Phone: [facility] Comment on above: Coronary artery dise ase involving wrangell coronary artery, unspecified whether angina present, unspecified whether wrangell or transplanted heart; Angina pectoris (HCC); Pre-operative cardiovascular examination Start: 09-10-2021 End: 09-10-2021 Patient encounter status Anton Zuñiga MD Work Phone: [facility] Start: 09-06-2021 Orders Only Caitlyn Sam RN [facility] Comment on above: Coronary artery dise ase involving wrangell coronary artery, unspecified whether angina present, unspecified whether wrangell or transplanted heart (Primary Dx); Angina pectoris (HCC) Start: 08-27-2021 Orders Only Caitlyn Sam RN [facility] Comment on above: Coronary artery dise ase involving wrangell coronary artery, unspecified whether angina present, unspecified whether wrangell or transplanted heart (Primary Dx); Angina pectoris (HCC); Pre-operative cardiovascular examination Start: 08-27-2021 Patient encounter status Kelly Sam RN [facility] Start: 08-26-2021 ambulatory ANTON AMAYA Elyssa [facility] Ambulatory Start: 08-23-2021 End: 08-23-2021 ambulatory ANTON SEEMA [facility] Ambulatory Start: 08-23-2021 End: 08-23-2021 Office outpatient visit 25 minutes Anton Zuñiga MD Work Phone: [facility] Comment on above: Angina pectoris (HCC ) (Primary Dx); Coronary artery disease involving wrangell coronary artery, unspecified whether angina present, unspecified whether wrangell or transplanted heart Start: 07-26-2021 End: 07-26-[address] Pat Bennett Work Phone: [facility]-Laboratory, [facility] Start: 07-26-2021 End: 07-26-[address] Pat Bennett Work Phone: [facility] Medicine Start: 07-03-2021 End: 07-03-2021 Emergency department patient visit Dr. Pat Bennett Work Phone: [facility]-Emergency Department Start: 06-15-2021 Rx Renewal Servando Clay Work Phone: [facility]-[place] [id number] Work Phone: Start: 03-17-2021 End: 03-17-2021 Emergency department patient visit Yudy Orantes [facility] Emergency 07 Start: 03-03-2021 End: 03-03-2021 ambulatory [facility] Ambulato ry Start: 02-24-2021 ambulatory [facility] Ambulatory Start: 01-14-[address] Vanessa Bennett Work Phone: [facility] Start: 01-14-2021 [address]pro[address] examin ation done Dr. Denise Uribe MD Work Phone: [facility] Start: 05-28-2020 Patient encounter procedure Servando Clay [facility] Work Phone: Start: 04-07-2020 Patient encounter procedure Servando Clay [facility] Work Phone: Start: 03-17-2020 Patient encounter procedure Servando Clay [facility] Work Phone: Start: 02-20-2020 Patient encounter procedure Servando Clay [facility] Work Phone: Start: 02-11-2020 End: 02-11-2020 Postop follow up visit related to original px Marzena Beltran Work Phone: [facility] Comment on above: S/P carpal tunnel re lease- Rt (Primary Dx) Start: 01-30-2020 End: 01-30-2020 Subsequent hospital visit by physician Bravo Cote Work Phone: [facility] Periop Comment on above: Carpal tunnel syndro me on right Start: 01-21-2020 End: 01-21-2020 Patient encounter procedure Marzena Beltran Work Phone: [facility] Comment on above: Carpal tunnel syndro me, right (Primary Dx); Pre-op testing Start: 01-01-2020 Patient encounter procedure Servando Clay [facility] Medical Services Work Phone: Start: 12-24-2019 End: 12-24-2019 Office outpatient visit 15 minutes Hugo Murray Work Phone: [facility] Orthopedics Comment on above: Chronic right should er pain (Primary Dx) Start: 11-28-2019 Patient encounter procedure Servando Clay [facility] Medical Services Work Phone: Start: 10-21-2019 Patient encounter procedure Servando Clya [facility] Services Work Phone: Start: 10-15-2019 End: 10-16-2019 Emergency department patient visit Rashard Pedroefraínmendoza Work Phone: [facility] Med Surg Comment on above: Fatigue Start: 10-03-2019 Patient encounter procedure Servando Clay [facility] Services Work Phone: Start: 06-13-2019 End: 06-13-2019 Subsequent hospital visit by physician Sherwin Cali Work Phone: [facility] Echocardiography Comment on above: Arrived Start: 06-05-2019 End: 06-05-2019 Subsequent hospital visit by physician Sherwin Cali Work Phone: [facility] Echocardiography Comment on above: Arrived Start: 05-30-2019 End: 05-30-2019 Patient encounter procedure Marzena Beltran Work Phone[facility] Comment on above: Carpal tunnel syndro me of right wrist (Primary Dx) Start: 04-24-2019 Patient encounter procedure Servando Clay [facility] Medical Services Work Phone: Start: 04-15-2019 End: 04-15-2019 Subsequent hospital visit by physician Hugo Murray Work Phone: [facility] Radiology Start: 04-15-2019 End: 04-15-2019 Office outpatient visit 25 minutes Hugo Vanessa Jagrutinasrin Work Phone: [facility] Orthopedics Comment on above: Chronic right should er pain (Primary Dx); Left hip pain Start: 04-03-2019 End: 04-03-2019 Office outpatient new 45 minutes Bravo Smithson Work Phone: [facility] Orthopedics Comment on above: Carpal tunnel syndro me of right wrist (Primary Dx); Cubital tunnel syndrome on left Start: 03-15-2019 End: 03-15-2019 Subsequent hospital visit by physician Hugo Murray Work Phone: [facility]iology Start: 03-15-2019 End: 03-15-2019 Office consultation new/estab patient 60 min Hugo Murray Work Phone: [facility] Orthopedics Comment on above: Left hip pain (Prima ry Dx) Start: 03-11-2019 End: 03-11-2019 Patient encounter procedure Other Other [facility] [employer] Start: 03-04-2019 End: 03-04-2019 Patient encounter procedure Other Other [facility] [employer] Start: 03-04-2019 End: 03-04-2019 Office outpatient visit 25 minutes Bassem Ding Work Phone: [facility] Rheumatology Comment on above: Gouty arthropathy (P [...] 01-25-2019 End: 01-25-2019 Letter encounter Provider Racheal [facility] Start: 01-25-2019 End: 01-25-2019 Subsequent hospital visit by physician Vladimir Landon Work Phone: [facility] Ultrasound Comment on above: Arrived Start: 01-24-2019 End: 01-24-2019 Ancillary Orders Vladimir Landon Work Phone: [facility] Central Scheduling Comment on above: Acute renal failure, unspecified acute renal failure type Start: 05-03-2018 End: 05-03-2018 Emergency department patient visit Rashard Gallegos Work Phone: [facility] Emergency Department Start: 04-24-2018 End: 04-24-2018 Patient encounter procedure Other Other [facility] Start: 04-23-2018 End: 04-23-2018 Patient encounter procedure Veronica Carmen [facility] Rheumatology Comment on above: Labs Only Start: 04-19-2018 End: 04-19-2018 Patient encounter procedure Bravo Fernandez Work Phone: [facility] EEG/EMG [place] Start: 03-26-2018 End: 03-26-2018 Patient encounter procedure Vladimir Fishman Work Phone: [facility] Neurology Comment on above: Other Start: 12-17-2016 End: 12-19-[address] Facility:[facility] Patient encounter procedure Servandotrell Careycraig DO Work Phone: [facility] Work Phone: Procedures Date Procedure Procedure Detail Performing Clinician Start: 02-05-2025 Urine microscopy: red cells Dr. Denise pereira MD Work Phone: Start: 02-05-2025 Urnls dip stick/tablet reagent auto microscopy Dr. Denise Uribe MD Work Phone: Start: 02-05-2025 Radiologic exam chest [address] Denise Uribe MD Work Phone: Start: 02-05-2025 CT cervical spine without contrast Dr. Emelina Uribe MD Work Phone: Start: 02-05-2025 CT of head without contrast Dr. Denise pereira MD Work Phone: Start: 02-05-[address] Denise Uribe MD Work Phone: Start: 02-05-2025 Calculation of international normalized ratio Dr. Denise Uribe MD Work Phone: Start: 02-05-2025 D-dimer assay, quantitative Dr. Denise pereira MD Work Phone: Start: 02-05-[address] Barbara Uribe MD Work Phone: Start: 02-05-2025 Dr. Denise Uribe MD Work Phone: Start: 02-05-2025 Blood count smear mcrscp w/mnl difrntl wbc count Dr. Denise Uribe MD Work Phone: Start: 02-05-2025 Mean corpuscular hemoglobin concentration determination Dr. Denise Uribe MD Work Phone: Start: 02-05-2025 Nucleated red blood cell count procedure Dr. Denise Uribe MD Work Phone: Start: 02-05-2025 Platelet mean volume determination Dr. Emelina Uribe MD Work Phone: Start: 01-06-[address] Denise goodson MD Work Phone: Start: 01-06-2025 Total cholesterol:HDL ratio measurement Dr. Denise Uribe MD Work Phone: Start: 01-06-2025 Urine microalbumin/creatinine ratio measurement Dr. Denise Uribe MD Work Phone: Start: 01-06-2025 Vitamin D, 25-hydroxy measurement Dr. Vikas LOPEZ Work Phone: Start: 11-15-2024 Urine microscopy: red cells Dr. Denise pereira MD Work Phone: Start: 11-15-2024 Urnls dip stick/tablet reagent auto microscopy Dr. Denise Uribe MD Work Phone: Start: 11-15-2024 Plain chest X-ray Dr. Denise Uribe MD Work Phone: Start: 11-15-2024 CT of head without contrast Dr. Denise pereira MD Work Phone: Start: 11-15-2024 Blood count smear mcrscp w/mnl difrntl wbc count Dr. Denise Uribe MD Work Phone: Start: 11-15-[address] Barbara Uribe MD Work Phone: Start: 11-15-2024 Mean corpuscular hemoglobin concentration determination Dr. Denise Uribe MD Work Phone: Start: 11-15-2024 Nucleated red blood cell count procedure Dr. Denise Uribe MD Work Phone: Start: 11-15-2024 Platelet mean volume determination Dr. Emelina Uribe MD Work Phone: Start: 09-19-2024 Blood count smear mcrscp w/mnl difrntl wbc count Dr. Denise Uribe MD Work Phone: Start: 09-19-[address] Barbara Uribe MD Work Phone: Start: 09-19-2024 Mean corpuscular hemoglobin concentration determination Dr. Denise Uribe MD Work Phone: Start: 09-19-2024 Nucleated red blood cell count procedure Dr. Denise Uribe MD Work Phone: Start: 09-19-2024 Platelet mean volume determination Dr. Emelina Uribe MD Work Phone: Start: 09-19-2024 Serum inorganic phosphate measurement Dr. Denise Uribe MD Work Phone: Start: 09-18-[address] Misael Uribe MD Work Phone: Start: 09-18-[address] Denise Uribe MD Work Phone: Start: 09-18-2024 Plain X-ray abdomen Dr. Denise Uribe MD Work Phone: Start: 09-18-[address] Barbara Uribe MD Work Phone: Start: 09-18-2024 Total iron binding capacity measurement Dr. Denise Uribe MD Work Phone: Start: 09-18-2024 Iadna-dna/rna gi pthgn multiplex probe tq 6-11 Dr. Denise Uribe MD Work Phone: Start: 09-18-[address] Denise Uribe MD Work Phone: Start: 09-17-2024 Urine microscopy: red cells Dr. Denise pereira MD Work Phone: Start: 09-17-2024 Urnls dip stick/tablet reagent auto microscopy Dr. Denise Uribe MD Work Phone: Start: 09-17-2024 Carbon dioxide measurement, partial pressure Dr. Denise Uribe MD Work Phone: Start: 09-17-2024 Gases blood o2 saturation only direct jamey Dr. Denise Uribe MD Work Phone: Start: 09-17-2024 Measurement of partial pressure of oxygen in blood Dr. Denise Uribe MD Work Phone: Start: 09-17-2024 Computed tomography of abdomen and pelvis with intravenous contrast Dr. Denise Uribe MD Work Phone: Start: 09-17-2024 Calculation of international normalized ratio Dr. Denise Uribe MD Work Phone: Start: 09-17-[address] Emelina Uribe MD Work Phone: Start: 07-24-2024 Blood count smear mcrscp w/mnl difrntl wbc count Dr. Denise Uribe MD Work Phone: Start: 07-24-2024 Mean corpuscular hemoglobin concentration determination Dr. Denise Uribe MD Work Phone: Start: 07-24-2024 Nucleated red blood cell count procedure Dr. Denise Uribe MD Work Phone: Start: 07-24-2024 Platelet mean volume determination Dr. Emelina Uribe MD Work Phone: Start: 07-24-2024 Total iron binding capacity measurement Dr. Denise Uribe MD Work Phone: Start: 07-24-2024 Vitamin D, 25-hydroxy measurement Dr. Vikas LOPEZ Work Phone: Start: 06-16-2024 X-ray of chest, [...] Phone: Start: 07-11-2023 Plain X-ray of shoulder SILK SCREEN PRINTER-C Devi Delgado SILK SCREEN PRINTER Work Phone: Start: 03-31-2023 Ultrasonography of breast SILK SCREEN PRINTER-C Devi Freitas r SILK SCREEN PRINTER Work Phone: Start: 12-20-2022 CT of thorax with contrast SILK SCREEN PRINTER-C Devi Eldridge er SILK SCREEN PRINTER Work Phone: Start: 12-08-2022 Bilateral mammography SILK SCREEN PRINTER-C Devi Delgado SILK SCREEN PRINTER Work Phone: Start: 11-28-[address] Pat clementer Work Phone: Start: 11-17-2022 Plain chest X-ray Dr. Pat Bennett Work Phone: Start: 09-15-2022 Plain chest X-ray Dr. Pat Bennett Work Phone: Start: 08-15-2022 End: 08-15-2022 EKG impression Yudy Bilderback Start: 08-06-[address] [...] Work Phone: Start: 03-16-2022 Colonoscopy Servando Clay Work Phone: Start: 11-16-2021 Computed tomography of abdomen and pelvis with intravenous contrast Dr. Pat Bennett Work Phone: Start: 11-07-2021 Plain chest X-ray Dr. Pat Bennett Work Phone: Start: 11-07-2021 CT of abdomen and pelvis without contrast Dr. Pat Bennett Work Phone: Start: 09-10-2021 Ecg routine ecg w/least 12 lds w/i&r Anton Zuñiga MD Work Phone: Start: 07-03-2021 Computed tomography of abdomen and pelvis with intravenous contrast Dr. Pat Bennett Work Phone: Start: 07-03-2021 End: 07-03-2021 Ova OR parasites identification Dr. Irma Bennett Work Phone: Start: 01-01-2020 Immunoassay analyte quantitative nos Servando Clay Start: 12-24-2019 Intra-articular injection Hugo Murray Work Phone: Start: 11-28-2019 Basic metabolic [...] Start: 10-15-2019 Glucose blood reagent strip Rashard Pedroo dis Work Phone: Start: 10-15-2019 Assay of troponin quantitative Rashard Le apodis Work Phone: Start: 10-15-2019 CELIAC DISEASE COMPREHENSIVE PANEL Servando Clay Work Phone: Start: 10-15-2019 Urinalysis, reagent strip without microscopy Rashard Rowlands Work Phone: Start: 10-15-2019 Standard ECG Rashard Rowlands Work Phone: Start: 10-15-2019 Diagnostic radiography of chest, combined PA and lateral Rashard Gallegos Work Phone: Start: 10-15-2019 Assay of troponin quantitative Rashard Le apodis Work Phone: Start: 10-15-2019 Complete blood count with white cell differential, automated Rashard Gallegos Work Phone: Start: 10-15-2019 Comprehensive metabolic panel Rashard Dickey podis Work Phone: Start: 10-15-2019 Assay of troponin quantitative Rashard levi Work Phone: Start: 06-13-2019 Cardiovascular stress test using pharmacologic stress agent Sherwin Cali Work Phone: Start: 06-05-2019 Doppler ultrasonography of artery of lower limb Sherwin B Viraj Work Phone: Start: 04-15-2019 Intra-articular injection Hugo Murray Work Phone: Start: 03-15-2019 Intra-articular injection Hugo Murray Work Phone: Start: 01-25-2019 Us pelvic [...] End: 05-03-2018 Glucose blood reagent strip Rashard Sotomayor dis Work Phone: Start: 04-23-2018 End: 04-23-2018 OUTSIDE RADIOLOGY Historical Provider Start: 04-19-2018 End: 04-19-2018 Electromyography Bassem Ding Work Phone: Start: 04-19-2018 End: 04-19-2018 Motor nerve conduction studies Bravo Fernandez Work Phone: Start: 04-19-2018 End: 04-19-2018 Needle emg ea extremity w/paraspinl area limited Bravo Fernandez Work Phone: Start: 02-20-2018 End: 02-20-2018 Colonoscopy Servando Clay Start: 02-20-2018 Colonoscopy Servando Clay DO Work Phone: Appendectomy Servando Clay Cardiac catheterization Servando Clay Cholecystectomy Servando Clay Decompression of median nerve Servando Clay Enteric Bacteriology Dr. Cha Bennett Work Phone: Enteric Bacteriology Dr. Cha Bennett Work Phone: Esophagogastroduodenoscopy D belkis Thomae Hysterectomy Servandotrell Clay SARS-CoV-2 & FLU Antigen (Rapid) Dr. Pat Bennett Work Phone: SARS-CoV-2 & FLU Antigen (Rapid) Dr. Pat Bennett Work Phone: Dr. Pat gallego Work Phone: Plan of Treatment Date Care Activity Detail Author Start: 02-21-2028 Screening for malignant neoplasm of colon [facility] Start: 03-17-2025 Pneumococcal Vaccine: Age 65+ (2 of 2 - PPSV23) Pneumococcal Vaccine: Age 65+ (2 of 2 - PPSV23) [facility] Start: 03-17-2025 Pneumococcal Vaccine: Age 65+ (3 - PPSV23 or PCV20) Pneumococcal Vaccine: Age 65+ (3 - PPSV23 or PCV20) [facility] Start: 02-05-2025 Verification routine [facility] Start: 02-05-2025 Admission procedure [facility] Start: 02-05-2025 Hospital admission, emergency, from emergency room, medical nature [facility] Start: 02-05-2025 End: 02-05-2025 [facility] Start: 11-15-2024 [facility] Start: 11-15-2024 End: 11-15-2024 [facility] Start: 09-19-2024 Patient discharge [facility] Start: 09-18-2024 [facility] Start: 09-17-2024 Following clinical pathway protocol [facility] Start: 09-17-2024 Care regimes management [facility] Start: 09-17-2024 Notification of physician [facility] Start: 09-17-2024 Provision of activity privileges [facility] Start: 09-17-2024 Tobacco use cessation education [facility] Start: 09-17-2024 Assessment of risk of venous thromboembolism [facility] Start: 09-17-2024 Fall prevention [facility] Start: 09-17-2024 Insertion of catheter into peripheral vein [facility] Start: 09-17-2024 Introduction of urinary catheter [facility] Start: 09-17-2024 Measuring intake and output [facility] Start: 09-17-2024 Oxygen therapy [facility] Start: 09-17-2024 Providing care according to standard [facility] Start: 09-17-2024 Referral to service [facility] Start: 09-17-2024 Referral to general surgeon [facility] Start: 09-17-2024 End: 09-17-2024 [facility] Start: 09-17-2024 Hospital admission, emergency, from emergency room, medical nature [facility] Start: 09-17-2024 Admission procedure [facility] Start: 08-07-2024 Iv infusion therapy/prophylaxis /dx 1st to 1 hr [facility] Start: 06-18-2024 Patient discharge [facility] Start: 06-17-2024 [facility] Start: 06-16-2024 Enteric precautions [facility] Start: 06-16-2024 Assessment of risk of venous thromboembolism [facility] Start: 06-16-2024 Care regimes management [facility] Start: 06-16-2024 Fall prevention [facility] Start: 06-16-2024 Incentive spirometry [facility] Start: 06-16-2024 Inhalation therapy procedure [facility] Start: 06-16-2024 Insertion of catheter into peripheral vein [facility] Start: 06-16-2024 Introduction of urinary catheter [facility] Start: 06-16-2024 Measuring intake and output [facility] Start: 06-16-2024 Notification of physician [facility] Start: 06-16-2024 Oxygen therapy [facility] Start: 06-16-2024 Providing care according to standard [facility] Start: 06-16-2024 Provision of activity privileges [facility] Start: 06-16-2024 Referral to occupational therapist [facility] Start: 06-16-2024 Referral to service [facility] Start: 06-16-2024 End: 06-16-2024 [facility] Start: 06-16-2024 End: 06-16-2024 Following clinical pathway protocol [facility] Start: 06-16-2024 Admission procedure [facility] Start: 05-22-2024 Patient discharge [facility] Start: 05-20-2024 Application of intermittent pneumatic compression device [facility] Start: 05-18-2024 [facility] Start: 05-18-2024 Care planning and problem solving actions [facility] Start: 05-17-2024 Referral to occupational therapist [facility] Start: 05-17-2024 Referral to service [facility] Start: 05-17-2024 Care planning and problem solving actions [facility] Start: 05-15-2024 Insertion of nasogastric tube [facility] Start: 05-15-2024 [facility] Start: 05-15-2024 Inhalation therapy procedure [facility] Start: 05-14-2024 [facility] Start: 05-14-2024 Introduction of urinary catheter [facility] Start: 05-14-2024 Referral to general surgeon [facility] Start: 05-14-2024 [facility] Start: 05-13-2024 Following clinical pathway protocol [facility] Start: 05-13-2024 Aspiration precautions [facility] Start: 05-13-2024 Assessment of risk of venous thromboembolism [facility] Start: 05-13-2024 Care regimes management [facility] Start: 05-13-2024 Insertion of catheter into peripheral vein [facility] Start: 05-13-2024 Measuring intake and output [facility] Start: 05-13-2024 Notification of physician [facility] Start: 05-13-2024 Providing care according to standard [facility] Start: 05-13-2024 Provision of activity privileges [facility] Start: 05-13-2024 Referral to occupational therapist [facility] Start: 05-13-2024 Referral to service [facility] Start: 05-13-2024 End: 05-13-2024 [facility] Start: 05-13-2024 Admission procedure [facility] Start: 05-13-2024 Patient referral to dietitian [facility] Start: 09-14-2023 Patient referral [facility] Work Phone: Start: 09-11-2023 [facility] Start: 02-16-2023 Patient referral [facility] Work Phone: Start: 08-15-2022 End: 08-18-2022 Iohexol (Omnipaque 350-Radiology Contrast) . ; (OMNIPAQUE)DOSE = 87.15 mL IntraVenous Push OnceCa.5 mL/Kg/DOSE x 58.1 Kg = 87.15 mL/Dose (Daily Total is 87.15 mL) Start: 15-Aug-2022 End: 17-Aug-2022 Ordered: 15-Aug-2022 Yudy Bridges [facility] Start: 08-08-2022 Patient discharge [facility] Start: 08-07-2022 Care regimes management [facility] Start: 08-07-2022 Notification of physician [facility] Start: 08-07-2022 [facility] Start: 08-05-2022 End: 08-05-2022 [facility] Start: 08-05-2022 Procedures relating to eating and drinking [facility] Start: 08-04-2022 Application of intermittent pneumatic compression device [facility] Start: 08-04-2022 Assessment of risk of venous thromboembolism [facility] Start: 08-04-2022 Care regimes management [facility] Start: 08-04-2022 Inhalation therapy procedure [facility] Start: 08-04-2022 Insertion of catheter into peripheral vein [facility] Start: 08-04-2022 Notification of physician [facility] Start: 08-04-2022 Providing care according to standard [facility] Start: 08-04-2022 Provision of activity privileges [facility] Start: 08-04-2022 Referral to general surgeon [facility] Start: 08-04-2022 [facility] Start: 08-04-2022 Following clinical pathway protocol [facility] Start: 08-04-2022 Verification routine [facility] Start: 08-04-2022 Admission procedure [facility] Start: 04-11-2022 Patient referral [facility] Work Phone: Start: 03-28-2022 [facility] Work Phone: Start: 02-17-2022 FUV, Provider: Servando Clay, Status: Pen, Time: 3:45 PM FUV, Provider: Servando Clay, Status: Pen, Time: 3:[address] [facility] Work Phone: Start: 02-08-2022 Patient referral [facility] Work Phone: Start: 11-11-2021 [facility] Work Phone: Start: 11-10-2021 Patient discharge [facility] Work Phone: Start: 11-09-2021 [facility] Work Phone: Start: 11-09-2021 Following clinical pathway protocol [facility] Work Phone: Start: 11-08-2021 End: 11-09-2021 [facility] Work Phone: Start: 11-08-2021 Care regimes management [facility] Work Phone: Start: 11-08-2021 Notification of physician [facility] Work Phone: Start: 11-07-2021 Assessment of risk of venous thromboembolism [facility] Work Phone: Start: 11-07-2021 Care regimes management [facility] Work Phone: Start: 11-07-2021 Insertion of catheter into peripheral vein [facility] Work Phone: Start: 11-07-2021 Providing care according to standard [facility] Work Phone: Start: 11-07-2021 Provision of activity privileges [facility] Work Phone: Start: 11-07-2021 Referral to general surgeon [facility] Work Phone: Start: 11-07-2021 [facility] Work Phone: Start: 11-07-2021 Verification routine [facility] Work Phone: Start: 11-07-2021 Admission procedure [facility] Work Phone: Start: 11-07-2021 [facility] Work Phone: Start: 09-15-2021 End: 09-15-2021 Admission to same day surgery center 09/15/2021 Surgery Cardiology Anton Zuñiga MD [address] [place] [address] Left Heart Cath [facility] Client Services Coordinator Comment on above: Left Heart Cath Start: 09-15-2021 Subsequent hospital visit by physician 09/15/2021 Hospital Encounter Anton Zuñiga MD [address] [facility] [address] [place] [address] [facility] Procedural Care Unit Start: 09-10-2021 End: 09-10-2021 Clinical Support 09/10/2021 Clinical Support Cardiology Anton Zuñiga MD [address] [facility] [address] [place] [address] [facility] Start: 09-02-2021 End: 09-02-2021 Admission to same day surgery center 09/02/2021 Surgery Cardiology Anton Zuñiga MD [address] [facility] [address] [place] [address] Left Heart Cath Possbile PTCA/Stent [facility] Client Services Coordinator Comment on above: Left Heart Cath Possbile PTCA/Stent Start: 09-02-2021 Subsequent hospital visit by physician 09/02/2021 Hospital Encounter Anton Zuñiga MD [address] [facility] [address] [place] [address] [facility] Procedural Care Unit Start: 08-31-2021 End: 08-31-2021 Clinical Support 08/31/2021 Clinical Support Cardiology Anton Zuñiga MD [address] [facility] [address] [place] [address] [facility] Start: 08-30-2021 End: 08-27-2022 Basic metabolic 2000 panel - Serum or Plasma Basic Metabolic Panel Lab Routine Coronary artery disease involving wrangell coronary artery, unspecified whether angina present, unspecified whether wrangell or transplanted heart Angina pectoris (HCC) Pre-operative cardiovascular examination Expected: 08/30/2021, Expires: 08/27/2022 [facility] Work Phone: Comment on above: Expected: 08/30/2021, Expires: Start: 07-29-2021 Patient referral [facility] Work Phone: Start: 07-26-2021 Patient referral [facility] Work Phone: Start: 2021 Fall risk assessment Falls Risk Assessment [facility] Start: 01-22-2021 Potassium [Moles/Vol] POTASSIUM [facility] Start: 10-15-2020 Potassium [Moles/Vol] POTASSIUM [facility] Start: 10-15-[address] [facility] Start: 05-30-2020 Hemoglobin A1c measurement A1C [facility] Start: 04-29-2020 End: 04-29-2020 Office Visit 04/29/2020 Office Visit Cardiovascular Medicine Sherwin Cali II, MD [address] [place] [address] [phone] [facility] Start: 02-11-2020 End: 02-11-2020 Office Visit 02/11/2020 Office Visit Orthopaedics Marzena Beltran PADarielC [address] [place] [address] [phone] [facility] Start: 02-05-2020 End: 02-05-2020 Office Visit 02/05/2020 Office Visit Cardiovascular Medicine Sherwin Cali II, MD [address] [place] [address] [facility] Start: 01-30-2020 End: 01-30-2020 Hospital Encounter [facility] Periop Comment on above: Carpal tunnel syndrome on right DECOMPRESSION TRANSP OSITION MEDIAN NERVE RIGHT Start: 01-28-2020 End: 01-28-2020 Office Visit 01/28/2020 Office Visit Orthopaedics Hugo Murray, DO [address] [facility] [place] [address] [phone] [facility] Orthoped[facility] Start: 01-23-2020 End: 01-23-2020 Pre-Operative Nurse Assessment [facility] Pre Admission Start: 01-21-[address] [facility] Start: 01-21-2020 End: 01-21-2020 Office Visit 01/21/2020 Office Visit Orthopaedics Marzena Beltran PA-C [address] [place] [address] [phone] [facility] Start: 01-15-2020 End: 01-14-2021 NOVEL CORONAVIRUS- NASOPHARYNGEAL NOVEL CORONAVIRUS- NASOPHARYNGEAL Microbiology STAT Pre-op testing Expected: 01/15/2020, Expires: 01/14/2021 [facility] Comment on above: Expected: 01/15/2020, Expires: Start: 07-04-2019 End: 07-04-2019 Office Visit 07/04/2019 Office Visit Cardiovascular Medicine Sherwin Cali II, MD [address] [facility] [address] [facility] Start: 06-20-2019 End: 06-20-2019 Office Visit 06/20/2019 Office Visit Orthopaedics Hugo Murray, DO [address] [facility] [place] [address] [phone] [facility] Orthoped[facility] Start: 06-20-2019 End: 06-20-2019 Office Visit 06/20/2019 Office Visit Orthopaedics Marzena Beltran PA-C [address] [place] [address] [phone] [facility] Start: 06-13-2019 End: 06-13-2019 Appointment 06/13/2019 Appointment Cardiovascular Medicine Sherwin Cali II, MD [address] [place] [address] [facility] Echocardiography Start: 06-06-2019 End: 06-06-2019 Procedure Pass [facility] Periop Comment on above: Carpal tunnel syndrome on right DECOMPRESSION TRANSP OSITION MEDIAN NERVE Start: 05-31-2019 End: 05-31-2019 Office Visit 05/31/2019 Office Visit Cardiovascular Medicine Sherwin Cali II, MD [address] [place] [phone] [facility] Health Cardiology Start: 04-15-2019 End: 04-15-2019 Office Visit 04/15/2019 Office Visit Orthopaedics Hugo Murray, [address] [place] [address] [phone] [facility] Start: 04-03-2019 End: 04-03-2019 Office Visit 04/03/2019 Office Visit Orthopaedics Bravo Cote MD [address] [place] [address] [phone] [facility] Start: 03-29-2019 End: 03-29-2019 Office Visit 03/29/2019 Office Visit Orthopaedics Hugo Murray, [address] [place] [address] [phone] [facility] Orthoped[facility] Start: 03-15-2019 End: 03-13-2020 Skeletal X-ray of pelvis and hip [facility] Comment on above: 1 Occurrences starting 03/15/2019 until 03/15/2019 Expected: 03/15/2019 , Expires: 03/13/2020 Start: 03-15-2019 End: 03-15-2019 Office Visit 03/15/2019 Office Visit Orthopaedics Hugo Murray DO [address] [place] [address] [place] [address] [facility] Orth[facility] Start: 03-04-2019 End: 03-04-2019 Office Visit 03/04/2019 Office Visit Rheumatology Timur Naranjo, Bassem Mix, DO [address] [place] [phone] [facility] Rheumatology Start: 02-26-[address] [facility] Work Phone: Start: 01-25-2019 End: 01-25-2019 Hospital Encounter [facility] Ultrasound Comment on above: Arrived Start: 01-20-2019 Influenza vaccination INFLUENZA VACCINE (#1) [facility] Start: 04-19-2018 End: 04-19-2018 Ambulatory [facility] EEG/EMG [place] Start: 01-20-2018 Influenza vaccination INFLUENZA VACCINE (#1) [facility] Work Phone: Start: 2006 Administration of herpes zoster vaccine Zoster Vaccines (1 of 2) [facility] Start: 2006 Colonoscopy [facility] Start: 2006 Protein mass conc COLON CANCER SCREENING DISCUSSION [facility] Work Phone: Start: 2006 Screening for malignant neoplasm of colon [facility] Start: 2006 Zoster vaccine hzv live for subcutaneous use ZOSTER (SHINGLES) VACCINE (1 of 2) [facility] Start: 1996 Fasting lipid profile LIPID SCREENING [facility] Work Phone: Start: 1996 Protein mass conc MAMMOGRAM SCREENING DISCUSSION [facility] Work Phone: Start: 1996 Screening for malignant neoplasm of breast Mammogram [facility] Start: 1996 Screening mammography MAMMOGRAM SCREENING DISCUSSION [facility] Start: 1977 Screening for malignant neoplasm of cervix [facility] Work Phone: Start: 1975 Third diphtheria, tetanus and acellular pertussis (DTaP) vaccination TDAP (ADULT) [facility] Work Phone: Start: 1974 Hepatitis C screening Hepatitis C Screening [facility] Start: [address] [facility] Work Phone: Start: 1971 HIV screening HIV Screening [facility] Start: 1969 HIV screening HIV SCREENING DISCUSSION [facility] Work Phone: Start: 1968 Depression screening using PHQ-9 (Patient Health Questionnaire 9) score Depression Screening (PHQ-2/9) [facility] Start: 1966 Diabetic foot examination Foot Exam [facility] Start: 1966 Microalbumin measurement, urine, quantitative Urine Microalbumin [facility] Start: 1966 Ophthalmic examination and evaluation Ophthalmology Exam [facility] Start: 1959 History and physical examination, annual for health maintenance Wellness Visit [facility] Start: 1956 Hepatitis C antibody, confirmatory test HEPATITIS C VIRUS SCREENING [facility] Work Phone: Start: 1956 Screening for osteoporosis Dexa Scan [facility] Start: 1956 Tetanus vaccination Tetanus: Every 10yrs [facility] End: 08-27-2022 12 lead ECG ECG 12 Lead ECG Routine Coronary artery disease involving wrangell coronary artery, unspecified whether angina present, unspecified whether wrangell or transplanted heart Angina pectoris (HCC) Pre-operative cardiovascular examination 1 Occurrences starting 08/27/2021 until 08/27/2022 [facility] Comment on above: 1 Occurrences starting 08/27/2021 until 08/27/2022 Blood chemistry [facility] End: 08-27-2022 CBC panel - Blood by Automated count CBC Lab Routine Coronary artery disease involving wrangell coronary artery, unspecified whether angina present, unspecified whether wrangell or transplanted heart Angina pectoris (HCC) Pre-operative cardiovascular examination 1 Occurrences starting 08/27/2021 until 08/27/2022 [facility] Comment on above: 1 Occurrences starting 08/27/2021 until 08/27/2022 CELIAC DISEASE COMPREHENSIVE PANEL CELIAC DISEASE COMPREHENSIVE PANEL Lab Routine 10/15/2019 3:27 PM [facility] Complete blood count [facility] H/O: hysterectomy History of hysterectomy [facility] Hemoglobin A1c/Hemoglobin.total in Blood [facility] History of appendectomy History of appendectomy [facility] History of cholecystectomy History of cholecystectomy [facility] History of colonoscopy History of colonoscopy [facility] History of decompression of median nerve History of carpal tunnel release [facility] History of placement of stent for coronary artery disease History of coronary artery stent placement [facility] HOLTER MONITOR - 24 HOUR HOLTER MONITOR - 24 HOUR ECG Routine Abnormal electrocardiogram Atrial premature contractions Palpitations Ordered: 05/31/2019 [facility] Comment on above: Ordered: 05/31/2019 End: 08-27-2022 INR in Platelet poor plasma by Coagulation assay PT/INR Lab Routine Coronary artery disease involving wrangell coronary artery, unspecified whether angina present, unspecified whether wrangell or transplanted heart Angina pectoris (HCC) Pre-operative cardiovascular examination 1 Occurrences starting 08/27/2021 until 08/27/2022 [facility] Comment on above: 1 Occurrences starting 08/27/2021 until 08/27/2022 Lipid 1996 panel - Serum or Plasma [facility] Measurement of respiratory function [facility] Work Phone: Past history of procedure History of esophagogastroduodenoscopy (EGD) [facility] Patient Education [facility] Work Phone: Patient referral [facility] Work Phone: Radiography of shoulder XR SHOULDER RIGHT MIN 2 VIEWS Imaging Routine Chronic right shoulder pain 04/15/2019 1:48 PM EST [facility] Skeletal X-ray of pelvis and hip XR HIP WITH PELVIS LEFT Imaging Routine Left hip pain 03/15/2019 2:02 PM EDT [facility] Standard ECG ECG ECG STAT 2:35 PM ED [facility] T4 free measurement [facility] Therapeutic px 1/> areas each 15 min exercises NE THERAPEUTIC EXERCISES, EA 15 MIN NE Charge Routine Chronic right shoulder pain Ordered: 12/24/2019 [facility] Comment on above: Ordered: 12/24/2019 Thyroid stimulating hormone measurement [facility] Tobacco use cessation education [facility] Tobacco use cessation education [facility] Tobacco use cessation education [facility] Transthoracic echocardiography ECHOCARDIOGRAM Echocardiography Routine Pre-operative clearance Atherosclerosis of wrangell coronary artery of wrangell heart, angina presence unspecified Old myocardial infarction Mitral valve prolapse Abnormal electrocardiogram Precordial pain 06/05/2019 2:46 PM EST [facility] Urine microalbumin/creatin ine ratio measurement [facility] Work Phone: [facility] Vitamin D, 25-hydroxy measurement [facility] NEGATED: Highlighted row has been ruled out! Planned Goals not documented [facility] Work Phone: Immunizations Immunization Date Immunization Notes Care Provider Fa [facility] 02-19-2024 Seasonal trivalent influenza vaccine, adjuvanted, preservative free Dr. Denise Uribe MD Work Phone: [facility] 06-30-2023 RSV Adult BiValent (Abrysvo) SILK SCREEN PRINTER-C Devi Maddoxder SILK SCREEN PRINTER Work Phone: [facility] 06-28-2023 Influenza High-Dose Quadrivalent SILK SCREEN PRINTER-C Devi Delgado SILK SCREEN PRINTER Work Phone: [facility] 06-28-2023 Pfizer Covid-19 (Comirnaty) SILK SCREEN PRINTER-C Devi Maddoxder SILK SCREEN PRINTER Work Phone: [facility] 01-24-2023 tetanus toxoid, redu dominick diphtheria toxoid, and acellular pertussis vaccine, adsorbed SILK SCREEN PRINTER-C Devi Delgado SILK SCREEN PRINTER Work Phone: [facility] 01-03-2023 zoster vaccine recombinant SILK SCREEN PRINTER-C Devi Delgado SILK SCREEN PRINTER Work Phone: [facility] 05-04-2022 Covid Pfizer Bivalen t Booster SILK SCREEN PRINTER-C Devi Maddoxder SILK SCREEN PRINTER Work Phone: [facility] 05-04-2022 zoster vaccine recombinant SILK SCREEN PRINTER-C Devi Delgado SILK SCREEN PRINTER Work Phone: [facility] 03-01-2022 influenza, injectabl e, quadrivalent, preservative free SILK SCREEN PRINTER-C Devi Maddoxder SILK SCREEN PRINTER Work Phone: [facility] 03-01-2022 influenza, seasonal, injectable Dr. Pat Bennett Work Phone: [facility] 05-07-2021 Covid (Pfizer) Dr. Pat post Work Phone: [facility] 05-07-2021 influenza, injectabl e, quadrivalent, preservative free SILK SCREEN PRINTER-C Devi Delgado SILK SCREEN PRINTER Work Phone: [facility] 05-07-2021 influenza, seasonal, injectable Dr. Pat Bennett Work Phone: [facility] 09-19-2020 Pfizer SARS-CoV-2 Vaccination Caitlyn Sam RN [facility] 08-28-2020 Pfizer SARS-CoV-2 Vaccination Caitlyn Sam RN [facility] 07-16-2020 pneumococcal conjuga te vaccine, [address] Pat Bennett Work Phone: [facility] 07-16-2020 pneumococcal vaccine , unspecified formulation Dr. Pat Bennett Work Phone: [facility] Work Phone: 03-17-2020 influenza, injectabl e, quadrivalent, preservative free [facility] Comment on above: Series: 03-17-2020 pneumococcal polysaccharide vaccine, 23 valent [facility] Comment on above: Series: 02-17-[address] Pat Bennett Work Phone: [facility] 02-17-2020 Dr. Denise harrison MD Work Phone: [facility] 04-03-2017 influenza, injectabl e, quadrivalent, preservative free SILK SCREEN PRINTER-C Devi Delgado SILK SCREEN PRINTER Work Phone: [facility] 04-03-2017 influenza virus vacc ine, unspecified formulation Vladimir Fishman [facility] Work Phone: 03-08-1991 TD(adult) unspecifie d formulation SILK SCREEN PRINTER-C Devi Delgado SILK SCREEN PRINTER Work Phone: [facility] Payers Date Payer Category Payer Self-pay [id number] 2021 Medicaid [id number] 2020 Medicare UHC MANAGED MEDI CARE [employer] DUAL COMPLETE ([facility] SNP) [id number] 2020-Present [phone] [address] [address] [place] [address] [id number] 2020 Medicare [id number] 2018 Medicaid MEDICAID MEDICAI D xxxxxxxxxxxx 2018-Present xxxxxxxxxxxx [id number] 2018 Medicaid MEDICAID MEDICAI D [id number] 2018-Present [id number] 2017 Medicare [facility]IC[facility] MED[facility] xxxxxxxxx 2017-Present xxxxxxxxx [id number] 2017 Medicare MEDICARE [facility] MEDICARE [facility] [id number] 2017-Present [id number] .[id number] 1956 Unknown [id number] 2.16.840.1.223371.3.579.2.9 03 1956 Unknown [id number] 2.16.840.1.871050.3.579.2.9 1956 Unknown [id number] 2.16.840.1.272211.3.579.2.9 1956 Unknown [id number] 2.16.840.1.213471.3.579.2.9 03 1956 Unknown [id number] 2.16.840.1.991704.3.579.2.9 03 1956 Unknown [id number] 2.16.840.1.227844.3.579.2.9 03 1956 Unknown [id number] 2.16.840.1.962602.3.579.2.9 03 1956 Unknown [id number] 2.16.840.1.375488.3.579.2.9 03 1956 Unknown [id number] 2.16.840.1.792568.3.579.2.3 56 1956 Unknown [id number] 2.16.840.1.760227.3.579.2.3 56 1956 Unknown [id number] 2.16.840.1.447147.3.579.2.1 069 1956 Unknown [id number] 2.16.840.1.267026.3.579.2.1 069 Medicare [id number] Unknown Unknown [id number] 2.16.840.1.808064.3.579.2.4 62 Unknown [id number] 2.16.840.1.926388.3.579.2.4 62 Unknown [id number] 2.16.840.1.433773.3.579.2.4 62 Unknown [id number] 2.16.840.1.804130.3.579.2.4 62 Unknown [id number] 2.16.840.1.310893.3.579.2.4 62 Unknown [id number] 2.16.840.1.956899.3.579.2.4 62 Unknown [id number] 2.16.840.1.323230.3.579.2.4 62 Unknown [id number] 2.16.840.1.670058.3.579.2.4 62 Unknown [id number] 2.16.840.1.716919.3.579.2.4 62 Unknown [id number] 2.16.840.1.057705.3.579.2.4 62 Unknown [id number] 2.16.840.1.023764.3.579.2.4 62 Unknown [id number] 2.16.840.1.134936.3.579.2.4 62 Unknown [id number] 2.16.840.1.232608.3.579.2.4 62 Unknown [id number] 2.16.840.1.472511.3.579.2.4 62 Unknown [id number] 2.16.840.1.799682.3.579.2.4 62 Unknown [id number] 2.16.840.1.535886.3.579.2.4 62 Unknown [id number] 2.16.840.1.736938.3.579.2.4 62 Unknown [id number] 2.16.840.1.021584.3.579.2.4 62 Unknown [id number] 2.16.840.1.264630.3.579.2.4 62 Unknown [id number] 2.16.840.1.084509.3.579.2.4 62 Unknown [id number] 2.16.840.1.503161.3.579.2.4 62 Unknown [id number] 2.16.840.1.965644.3.579.2.4 62 Unknown [id number] 2.16.840.1.171483.3.579.2.4 62 Unknown [id number] 2.16.840.1.378929.3.579.2.4 62 Unknown [id number] 2.16.840.1.499683.3.579.2.4 62 Unknown [id number] 2.16.840.1.607603.3.579.2.4 62 Unknown [id number] 2.16.840.1.211779.3.579.2.4 62 Unknown [id number] 2.16.840.1.715141.3.579.2.4 62 Unknown [id number] 2.16.840.1.929331.3.579.2.4 62 Unknown [id number] 2.16.840.1.934473.3.579.2.4 62 Unknown [id number] 2.16.840.1.184000.3.579.2.4 62 Unknown [id number] 2.16.840.1.975777.3.579.2.4 62 Unknown [id number] 2.16.840.1.759619.3.579.2.4 62 Unknown [id number] 2.16.840.1.899584.3.579.2.4 62 Unknown [id number] 2.16.840.1.683911.3.579.2.4 62 Unknown [id number] 2.16.840.1.513162.3.579.2.4 62 Unknown [id number] 2.16.840.1.790220.3.579.2.4 62 Unknown [id number] 2.16.840.1.665107.3.579.2.4 62 Unknown [id number] 2.16.840.1.698034.3.579.2.4 62 Unknown [id number] 2.16.840.1.692317.3.579.2.4 62 Unknown [id number] 2.16.840.1.798170.3.579.2.4 62 Unknown [id number] 2.16.840.1.597236.3.579.2.4 62 Unknown [id number] 2.16.840.1.723131.3.579.2.4 62 Unknown [id number] 2.16.840.1.570491.3.579.2.4 62 Unknown [id number] 2.16.840.1.514017.3.579.2.4 62 Unknown [id number] 2.16.840.1.768992.3.579.2.4 62 Unknown [id number] 2.16.840.1.499057.3.579.2.4 62 Unknown [id number] 2.16.840.1.975222.3.579.2.4 62 Unknown [id number] 2.16.840.1.337688.3.579.2.4 62 Unknown [id number] 2.16.840.1.933226.3.579.2.4 62 Unknown [id number] 2.16.840.1.064921.3.579.2.4 62 Unknown [id number] 2.16.840.1.426295.3.579.2.4 62 Unknown [id number] 2.16.840.1.468498.3.579.2.4 62 Social History Date Type Detail Facility Start: 02-26-2018 End: 02-05-2025 Tobacco smoking status NHIS Current every day smoker [facility] Work Phone: Start: 1955 Sex Assigned At Not on file O [facility] Work Phone: History of tobacco use Cigarette Smoker [facility] Start: 05-30-2019 End: 10-15-2019 Alcohol intake Ex-drinker (finding) [facility] Start: 12-24-2019 End: 08-23-2021 Tobacco use and exposure Never used [facility] Start: 08-12-2021 End: 09-10-2021 Exposure to SARS-CoV-2 (event) Not sure [facility] Start: 01-30-2020 End: 08-23-2021 Cigarettes smoked current (pack per day) [facility] Start: 10-12-2021 End: 09-11-2023 Tobacco smoking consumption unknown [facility] Start: 08-23-2021 Alcohol intake Lifetime non-d miguel (finding) [facility] Start: 05-23-2020 [facility] Start: 05-23-2020 With Family [facility] Start: 07-31-2020 Cigarettes [facility] Start: 1955 Sex Assigned At Female W [facility] Start: 08-06-2024 End: 09-17-2024 Sex Female (finding) [facility] Sex [facility] NEGATED: Highlighted row - - [facility] Work Phone: NEGATED: Highlighted row [facility] Medical Equipment Procedure Code Equipment Code Equipment Origin al Text Equipment Identifier Dates Blood Sugar Diagnostic (Onetouch Verio Test Strips) strip Start: 11-12-2020 Lancets (Onetouc h Ultrasoft Lancets) misc Start: 11-12-2020 Pen Needle, Diab etic (Lite Touch Insulin [place]) 31 gauge x 5/16 needle Start: 08-31-2020 [...] Needle, Diab etic (Lite Touch Insulin [place]) 31 gauge x 5/16 needle Start: 11-05-2021 [...] Needle, Diab etic (Lite Touch Insulin [place]) 31 gauge x 5/16 needle Start: 08-31-2020 End: 11-05-2021 Blood Sugar Diagnostic (Onetouch Verio Test Strips) strip Start: 11-12-2020 Lancets (Onetouc h Ultrasoft Lancets) misc Start: 11-12-2020 Pen Needle, Diab etic (Lite Touch Insulin [place]) 31 gauge x 5/16 needle Start: 11-05-2021 [...] Needle, Diab etic (Lite Touch Insulin [place]) 31 gauge x 5/16 needle Start: 08-31-2020 End: 11-05-2021 Blood Sugar Diagnostic (Onetouch Verio Test Strips) strip Start: 11-12-2020 Lancets (Onetouc h Ultrasoft Lancets) misc Start: 11-12-2020 Pen Needle, Diab etic (Lite Touch Insulin [place]) 31 gauge x 5/16 needle Start: 11-10-2021 [...] Needle, Diab etic (Lite Touch Insulin [place]) 31 gauge x 5/16 needle Start: 08-31-2020 End: 11-05-2021 Pen Needle, Diab etic (Lite Touch Insulin [place]) 31 gauge x 5/16 needle Start: 11-05-2021 End: 11-10-2021 Blood Sugar Diagnostic (Onetouch Verio Test Strips) strip Start: 11-12-2020 Lancets (Onetouc h Ultrasoft Lancets) misc Start: 11-12-2020 Pen Needle, Diab etic (Lite Touch Insulin [place]) 31 gauge x 5/16 needle Start: 11-10-2021 [...] Needle, Diab etic (Lite Touch Insulin [place]) 31 gauge x 5/16 needle Start: 08-31-2020 End: 11-05-2021 Pen Needle, Diab etic (Lite Touch Insulin [place]) 31 gauge x 5/16 needle Start: 11-05-2021 End: 11-10-2021 Blood Sugar Diagnostic (Onetouch Verio Test Strips) strip Start: 11-12-2020 Lancets (Onetouc h Ultrasoft Lancets) misc Start: 11-12-2020 Pen Needle, Diab etic (Lite Touch Insulin [place]) 31 gauge x 5/16 needle Start: 11-10-2021 [...] Needle, Diab etic (Lite Touch Insulin [place]) 31 gauge x 5/16 needle Start: 08-31-2020 End: 11-05-2021 Pen Needle, Diab etic (Lite Touch Insulin [place]) 31 gauge x 5/16 needle Start: 11-05-2021 End: 11-10-2021 Blood Sugar Diagnostic (Onetouch Verio Test Strips) strip Start: 11-12-2020 Lancets (Onetouc h Ultrasoft Lancets) misc Start: 11-12-2020 Pen Needle, Diab etic (Lite Touch Insulin [place]) 31 gauge x 5/16 needle Start: 11-10-2021 [...] Needle, Diab etic (Lite Touch Insulin [place]) 31 gauge x 5/16 needle Start: 08-31-2020 End: 11-05-2021 Pen Needle, Diab etic (Lite Touch Insulin [place]) 31 gauge x 5/16 needle Start: 11-05-2021 End: 11-10-2021 Blood Sugar Diagnostic (Onetouch Verio Test Strips) strip Start: 11-12-2020 Lancets (Onetouc h Ultrasoft Lancets) misc Start: 11-12-2020 Pen Needle, Diab etic (Lite Touch Insulin [place]) 31 gauge x 5/16 needle Start: 11-10-2021 [...] Needle, Diab etic (Lite Touch Insulin [place]) 31 gauge x 5/16 needle Start: 08-31-2020 End: 11-05-2021 Pen Needle, Diab etic (Lite Touch Insulin [place]) 31 gauge x 5/16 needle Start: 11-05-2021 End: 11-10-2021 Blood Sugar Diagnostic (Onetouch Verio Test Strips) strip Start: 11-12-2020 Lancets (Onetouc h Ultrasoft Lancets) misc Start: 11-12-2020 Pen Needle, Diab etic (Bd Ultra-Fine Sophia Pen Needle) 32 gauge x 5/32 needle Start: 02-07-2022 Pen Needle, Diab etic (Lite Touch Insulin [place]) 31 gauge x 5/16 needle Start: 11-10-2021 [...] Needle, Diab etic (Lite Touch Insulin [place]) 31 gauge x 5/16 needle Start: 08-31-2020 End: 11-05-2021 Pen Needle, Diab etic (Lite Touch Insulin [place]) 31 gauge x 5/16 needle Start: 11-05-2021 End: 11-10-2021 Blood Sugar Diagnostic (Onetouch Verio Test Strips) strip Start: 11-12-2020 Lancets (Onetouc h Ultrasoft Lancets) misc Start: 11-12-2020 Pen Needle, Diab etic (Bd Ultra-Fine Sophia Pen Needle) 32 gauge x 5/32 needle Start: 02-07-2022 Pen Needle, Diab etic (Lite Touch Insulin [place]) 31 gauge x 5/16 needle Start: 11-10-2021 [...] Needle, Diab etic (Lite Touch Insulin [place]) 31 gauge x 5/16 needle Start: 08-31-2020 End: 11-05-2021 Pen Needle, Diab etic (Lite Touch Insulin [place]) 31 gauge x 5/16 needle Start: 11-05-2021 End: 11-10-2021 Blood Sugar Diagnostic (Onetouch Verio Test Strips) strip Start: 11-12-2020 Lancets (Onetouc h Ultrasoft Lancets) misc Start: 11-12-2020 Pen Needle, Diab etic (Bd Ultra-Fine Sophia Pen Needle) 32 gauge x 5/32 needle Start: 02-07-2022 Pen Needle, Diab etic (Lite Touch Insulin [place]) 31 gauge x 5/16 needle Start: 11-10-2021 [...] Needle, Diab etic (Lite Touch Insulin [place]) 31 gauge x 5/16 needle Start: 08-31-2020 End: 11-05-2021 Pen Needle, Diab etic (Lite Touch Insulin [place]) 31 gauge x 5/16 needle Start: 11-05-2021 End: 11-10-2021 Blood Sugar Diagnostic (Onetouch Verio Test Strips) strip Start: 11-12-2020 Lancets (Onetouc h Ultrasoft Lancets) misc Start: 11-12-2020 Pen Needle, Diab etic (Bd Ultra-Fine Sophia Pen Needle) 32 gauge x 5/32 needle Start: 02-07-2022 Pen Needle, Diab etic (Lite Touch Insulin [place]) 31 gauge x 5/16 needle Start: 11-10-2021 [...] Needle, Diab etic (Lite Touch Insulin [place]) 31 gauge x 5/16 needle Start: 08-31-2020 End: 11-05-2021 Pen Needle, Diab etic (Lite Touch Insulin [place]) 31 gauge x 5/16 needle Start: 11-05-2021 End: 11-10-2021 Blood Sugar Diagnostic (Onetouch Verio Test Strips) strip Start: 11-12-2020 Lancets (Onetouc h Ultrasoft Lancets) misc Start: 11-12-2020 Pen Needle, Diab etic (Bd Ultra-Fine Sophia Pen Needle) 32 gauge x 5/32 needle Start: 02-07-2022 Pen Needle, Diab etic (Lite Touch Insulin [place]) 31 gauge x 5/16 needle Start: 11-10-2021 [...] Needle, Diab etic (Lite Touch Insulin [place]) 31 gauge x 5/16 needle Start: 08-31-2020 End: 11-05-2021 Pen Needle, Diab etic (Lite Touch Insulin [place]) 31 gauge x 5/16 needle Start: 11-05-2021 End: 11-10-2021 Blood Sugar Diagnostic (Onetouch Verio Test Strips) strip Start: 11-12-2020 Lancets (Onetouc h Ultrasoft Lancets) misc Start: 11-12-2020 Pen Needle, Diab etic (Bd Ultra-Fine Sophia Pen Needle) 32 gauge x 5/32 needle Start: 02-07-2022 Pen Needle, Diab etic (Lite Touch Insulin [place]) 31 gauge x 5/16 needle Start: 11-10-2021 [...] Needle, Diab etic (Lite Touch Insulin [place]) 31 gauge x 5/16 needle Start: 08-31-2020 End: 11-05-2021 Pen Needle, Diab etic (Lite Touch Insulin [place]) 31 gauge x 5/16 needle Start: 11-05-2021 [...] Needle, Diab etic (Lite Touch Insulin [place]) 31 gauge x 5/16 needle Start: 08-31-2020 End: 11-05-2021 Pen Needle, Diab etic (Lite Touch Insulin [place]) 31 gauge x 5/16 needle Start: 11-05-2021 End: 11-10-2021 Pen Needle, Diab etic (Lite Touch Insulin [place]) 31 gauge x 5/16 needle Start: 11-10-2021 End: 08-26-2022 Pen Needle, Diab etic (Lite Touch Insulin [place]) 31 gauge x 5/16 needle Start: 08-26-2022 End: 09-27-2022 Blood Sugar Diagnostic (Onetouch Verio Test Strips) strip Start: 11-12-2020 Lancets Start: 01-24-2023 Pen Needle, Diab etic (Bd Ultra-Fine Sophia Pen Needle) 32 gauge x 5/32 needle Start: 01-30-2023 Pen Needle, Diab etic (Comfort Ez [place]) 32 gauge x 1/4 needle Start: 01-30-2023 [...] Needle, Diab etic (Lite Touch Insulin [place]) 31 gauge x 5/16 needle Start: 08-31-2020 End: 11-05-2021 Pen Needle, Diab etic (Lite Touch Insulin [place]) 31 gauge x 5/16 needle Start: 11-05-2021 End: 11-10-2021 Pen Needle, Diab etic (Lite Touch Insulin [place]) 31 gauge x 5/16 needle Start: 11-10-2021 End: 08-26-2022 Pen Needle, Diab etic (Lite Touch Insulin [place]) 31 gauge x 5/16 needle Start: 08-26-2022 End: 09-27-2022 Blood Sugar Diagnostic (Onetouch Verio Test Strips) strip Start: 11-12-2020 Lancets Start: 01-24-2023 Pen Needle, Diab etic (Bd Ultra-Fine Sophia Pen Needle) 32 gauge x 5/32 needle Start: 01-30-2023 Pen Needle, Diab etic (Comfort Ez [place]) 32 gauge x 1/4 needle Start: 01-30-2023 [...] Needle, Diab etic (Lite Touch Insulin [place]) 31 gauge x 5/16 needle Start: 08-31-2020 End: 11-05-2021 Pen Needle, Diab etic (Lite Touch Insulin [place]) 31 gauge x 5/16 needle Start: 11-05-2021 End: 11-10-2021 Pen Needle, Diab etic (Lite Touch Insulin [place]) 31 gauge x 5/16 needle Start: 11-10-2021 End: 08-26-2022 Pen Needle, Diab etic (Lite Touch Insulin [place]) 31 gauge x 5/16 needle Start: 08-26-2022 End: 09-27-2022 Blood Sugar Diagnostic (Onetouch Verio Test Strips) strip Start: 11-12-2020 Lancets Start: 01-24-2023 Pen Needle, Diab etic (Bd Ultra-Fine Sophia Pen Needle) 32 gauge x 5/32 needle Start: 01-30-2023 Pen Needle, Diab etic (Comfort Ez [place]) 32 gauge x 1/4 needle Start: 01-30-2023 [...] Needle, Diab etic (Lite Touch Insulin [place]) 31 gauge x 5/16 needle Start: 08-31-2020 End: 11-05-2021 Pen Needle, Diab etic (Lite Touch Insulin [place]) 31 gauge x 5/16 needle Start: 11-05-2021 End: 11-10-2021 Pen Needle, Diab etic (Lite Touch Insulin [place]) 31 gauge x 5/16 needle Start: 11-10-2021 End: 08-26-2022 Pen Needle, Diab etic (Lite Touch Insulin [place]) 31 gauge x 5/16 needle Start: 08-26-2022 End: 09-27-2022 Blood Sugar Diagnostic (Onetouch Verio Test Strips) strip Start: 11-12-2020 Lancets Start: 01-24-2023 Pen Needle, Diab etic (Bd Ultra-Fine Sophia Pen Needle) 32 gauge x 5/32 needle Start: 01-30-2023 Pen Needle, Diab etic (Comfort Ez [place]) 32 gauge x 1/4 needle Start: 01-30-2023 [...] Needle, Diab etic (Lite Touch Insulin [place]) 31 gauge x 5/16 needle Start: 08-31-2020 End: 11-05-2021 Pen Needle, Diab etic (Lite Touch Insulin [place]) 31 gauge x 5/16 needle Start: 11-05-2021 End: 11-10-2021 Pen Needle, Diab etic (Lite Touch Insulin [place]) 31 gauge x 5/16 needle Start: 11-10-2021 End: 08-26-2022 Pen Needle, Diab etic (Lite Touch Insulin [place]) 31 gauge x 5/16 needle Start: 08-26-2022 End: 09-27-2022 Goals Date Patient Goal Desired Activity /State Functional Status Date Assessment Result Facility 09-19-2024 Functional status Ambulates;Up ad ag [facility] Work Phone: 06-18-2024 Functional status Ambulates;Bedrest [facility] Work Phone: 05-22-2024 Functional status Ambulates [facility] Work Phone: 08-08-2022 Functional status Ambulates;Up ad ag [facility] Work Phone: 11-10-2021 Functional status Ambulates [facility] Work Phone: NEGATED: Highlighted row Functional performance Functional status health issues are not documented Disease [facility] Work Phone: Mental Status Date Assessment Result Facility 02-05-2025 Cognitive function Drowsy [facility] Work Phone: 11-15-2024 Cognitive function Awake;Alert;A ppropriate ;Follows Commands [facility] Work Phone: 09-19-2024 Cognitive function Voice/Name [facility] Work Phone: 08-07-2024 Cognitive function Awake;Alert;A ppropriate ;Follows Commands [facility] Work Phone: 06-18-2024 Cognitive function Voice/Name [facility] Work Phone: 05-22-2024 Cognitive function Voice/Name [facility] Work Phone: 08-08-2022 Cognitive function Voice/Name [facility] Work Phone: 08-04-2022 Cognitive function Level Of Cons ciousness Awake;Alert;Appropriate [facility] Work Phone: 11-10-2021 Cognitive function Voice/Name [facility] Work Phone: 11-07-2021 Cognitive function Voice/Name [facility] Work Phone: NEGATED: Highlighted row Cognitive function [Interpretation] Cognitive status health issues are not documented Disease [facility] Work Phone: Clinical Notes 08-20-2021 to 02-05-2025 Note Date & Type Note Facility 02-05-2025 Radiology Diagnostic study note [facility] 02-05-2025 Radiology Diagnostic study note [facility] 02-05-2025 Radiology Diagnostic study note [facility] 02-05-2025 Discharge summary Note Date/Time February 05, 2025 4:46pm [facility] Medical Records Department [address] [place] [address] Emergency Department Summary 02/05/25 MR#: [id number] Acct: [id number] Name: ASIF DELA CRUZ Rep #:[id number] : 1955 69 From: Tru tadeo DO PCP: Dr. Denise Uribe MD Status:REG ER Location: ED HPI History of Present Illness Chief Complaint: Syncope Narrative Narrative: Chief complaint and HPI: 69-year-old female with past medical history of DM, paroxysmal atrial fibrillation on Eliquis, HTN, HLD, hypothyroidism presents forevaluation of generalized weakness and syncope. Patient states her sister was diagnosed with COVID-19 infection approximately 12 days ago. She states 3 days ago she developed fatigue, change in taste, weakness, and cough. She states herweakness has led to multiple falls. Does not believe herself to hit her head. No LOC. States she has some mild neck pain since the falls. Sister states thatshe was sitting in her recliner chair when she had a coughing fit and became unresponsive for several seconds. She then was back to baseline. Patient endorses decreased p.o. intake. Per EMS report, patient was found to be hypotensive. Review of systems: See HPI Medications: As listed on the chart Allergies: As listed on the chart PFSH: Per chart Vital signs: As listed on the chart. Reviewed. Physical exam: Gen: Fatigued but O x3, NAD Head: Normocephalic, atraumatic Eyes: No sclera icterus, conjunctiva clear, PERRL ENT: Dry mucous membranes, face atraumatic Neck: Trachea midline, No JVD, no midline spinal tenderness, no bony step-offs full range of motion CV: RRR, no murmurs, no chest wall TTP Resp: Lungs diminished in the bilateral bases and coarse, productive cough present GI: Abd soft, non-distended, non-tender, no r/r/g Musc: Moves all extremities but generalized weakness, no deformity, no spinal TTP, no lucy step-offs Skin: Warm, dry Neuro: Fatigued, oriented, grossly intact, sensation intact Psych: Cooperative, appropriate mood and affect [facility] Medical History Recurrent falls Chronic anemia Acute kidney injury Bipolar disorder Umbilical hernia Hypothyroidism Hiatal hernia Gout Essential hypertension Atrial fibrillation Overweight (BMI 25.0-29.9) Polyneuropathy due to type 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 GFR 30-59 Fibromyalgia affecting multiple sites Shoulder pain, bilateral Hip pain, bilateral Tachybradycardia syndrome Near syncope Generalized OA 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 Abnormal stress test Hypertension Chronic pancreatic insufficiency Depression Home Medications ?Medication ?Instructions ?Recorded ?Last Taken ?Type lancets #300 ea 01/24/23 Unknown Rx nitroglycerin 0.4 mg sublingual 0.4 mg sublingual Q5-1 5M PRN chest 10/04/23 Unknown Rx tablet (Nitrostat) pain #25 tabs blood sugar diagnostic (OneTouch #300 ea 11/29/23 Unkn own Rx Verio test strips) blood-glucose meter (OneTouch #1 ea 11/29/23 Unknown R x Verio Flex Meter) pen needle, diabetic 32 gauge x #400 ea 02/27/24 Unkno wn Rx (BD Ultra-Fine Sophia Pen Needle) allopurinol 100 mg tablet 100 mg PO QHS gout #90 tabs 03/18/24 05/12/24 Rx nystatin 100,000 unit/gram topical 1 applic topical BI D PRN for 03/19/24 05/12/24 Rx powder ([facility]) infectious disease #30 GMS flash glucose sensor (FreeStyle #6 ea 03/21/24 Unknown Rx Marilyn 14 Day Sensor kit) handicap placard #1 ea 04/16/24 Unknown Rx carvedilol 6.25 mg tablet 6.25 mg PO BID blood pressur e #180 06/06/24 Unknown Rx tabs ticagrelor 90 mg tablet 90 mg PO BID #180 tabs 08/21 Unknown Rx atorvastatin 80 mg tablet 80 mg PO QHS Hyperlipidemia #100 09/03/24 Unknown Rx tabs colestipol 1 gram tablet 1 g PO DAILY cholesterol #10 0 tabs 09/03/24 Unknown Rx albuterol sulfate 90 mcg/actuation 2 puff inhalation Q 6H PRN Wheezing 09/05/24 Unknown Rx aerosol inhaler #8.5 grams apixaban 5 mg tablet (Eliquis) 5 mg PO BID blood thinn er #180 tabs 09/11/24 Unknown Rx icosapent ethyl 1 gram capsule 2 g (2 x 1 gram) PO BID #120 caps 10/07/24 Unknown Rx (Vascepa) losartan 50 mg tablet 50 mg PO DAILY blood pressur e #84 10/21/24 Unknown Rx TABLETS divalproex 125 mg capsule,delayed 125 mg PO BID bipola r #56 caps 11/12/24 Unknown Rx release sprinkle insulin glargine 100 unit/mL (3 50 unit (0.5 mL) subcu t QHS 12/16/24 Unknown Rx mL) subcutaneous pen (Lantus diabetes #45 mL Solostar U-100 Insulin) rabeprazole 20 mg tablet,delayed 20 mg PO DAILY for ac id reflux #30 12/17/24 Unknown Rx release TABLETS dulaglutide 0.75 mg/0.5 mL 0.75 mg (0.5 mL) subcut QWE EK #2 mL 01/06/25 Unknown Rx subcutaneous pen injector (Trulicity) dulaglutide 0.75 mg/0.5 mL 0.75 mg (0.5 mL) subcut QWE EK #2 mL 01/06/25 Unknown Rx subcutaneous pen injector (Trulicity) amitriptyline 50 mg tablet 50 mg PO QHS sleep #30 tabs 01/24/25 Unknown Rx levothyroxine 112 mcg tablet 112 mcg PO .monday to mon day for 01/24/25 Unknown Rx disorder of thyroid gland #25 TABLETS insulin lispro 100 unit/mL 25 unit subcut TID diabetes 02/05/25 Unknown History subcutaneous pen (Humalog KwikPen (U-100) Insulin) Allergy/AdvReac Type Severity Reaction Status Date / Time duloxetine (From Affaredelgiornoalta) Allergy Itching Verified 02/05/25 13:00 Environmental Allergies: Allergy Cough Verified 02/05/25 13:00 Uncoded tomato Allergy Itching Verified 02/05/25 13:00 diphenhydramine (From AdvReac Severe other Verified 02/05/25 13:00 Benadryl) isosorbide AdvReac Intermediate Other Verified 02/05/25 13:00 adhesive tape (plastic tape) AdvReac Rash Verified 02/05/25 13:00 semaglutide (From Ozempic) AdvReac Diarrhea Verified 02/05/25 13:00 Family History Sister COPD (chronic obstructive pulmonary disease) Mother COPD (chronic obstructive pulmonary disease) Hypertension Alzheimer's dementia without behavioral disturbance Father Diabetes Hypertension Myocardial infarction Parkinsons disease Surgical History History of surgical procedure History of laparoscopic appendectomy History of total abdominal hysterectomy Hx of cholecystectomy Hx of shoulder surgery Presence of stent in coronary artery (~09/06/21) Social History household members: family current occupational status: retired 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 Smoking Status: Current every day smoker tobacco type: cigarettes Electronic Cigarette Use: not used alcohol intake: never substance use type: does not use caffeine: No what type of physical activity do you participate in: none do you feel safe at home: Yes EXAM Physical Exam Const Vital Signs: 02/05/25 12:57 02/05/25 13:19 02/05/25 14:00 Temperature 98.2 F 98.4 F Temperature Source Oral Oral Pulse Rate 77 71 Respiratory Rate 18 19 H Respiratory Pattern Normal Blood Pressure 85/57 L 87/41 L Blood Pressure Mean 66 56 Pulse Ox 97 97 Oxygen Delivery Method Room Air Room Air 02/05/25 14:24 02/05/25 15:00 02/05/25 16:00 Temperature 98.1 F 97.8 F Temperature Source Oral Oral Pulse Rate 73 75 69 Respiratory Rate 18 14 16 Respiratory Pattern Normal Blood Pressure 84/58 L 100/58 L Blood Pressure Mean 66 72 Pulse Ox 97 98 Oxygen Delivery Method Room Air Room Air MDM MDM MDM Narrative Medical decision making narrative: 69-year-old female with past medical history of DM, paroxysmal atrial fibrillation on Eliquis, HTN, HLD, hypothyroidism presents for evaluation of generalized weakness and syncope. Patient states her sister was diagnosed with COVID-19 infection approximately 12 days ago. She states 3 days ago she developed fatigue, change in taste, weakness, and cough. She states her weakness has led to multiple falls. Does not believe herself to hit her head. No LOC. States she has some mild neck pain since the falls. Sister states thatkashe was sitting in her recliner chair when she had a coughing fit and became unresponsive for several seconds. She then was back to baseline. On presentation, patient is fatigued but oriented x 3. Vitals are stable other than hypotension. Differential diagnosis includes but is not limited to COVID-19 infection, influenza, pneumonia, electrolyte abnormality, dehydration, ACS, PE, suspect less likely traumatic injury. NS bolus ordered. Infectious/trauma workup ordered. CT of the brain shows no evidence of intracranial hemorrhage or acute ischemia. Chronic changes. CT of the cervical spine shows degenerative changes. No acute traumatic injury. COVID, flu, RSV negative. CBC without leukocytosis. Patient has baseline anemia of 9.7 and baseline thrombocytosis of477. Coagulation panel relatively unremarkable. D-dimer unremarkable. BMP shows dehydration, hypokalemia, SALVATORE. Potassium 3.2. P.o. potassium ordered. Lactic acid 2.9. Another NS bolus ordered. No transaminitis. BNP unremarkable. Troponin 35. Patient not have any chest pain however will obtaindelta. UA negative for UTI. On reevaluation, patient's blood pressure is improving with fluids. Patient will warrant admission for continued hydration and observation. Repeat troponin 32. patient was updated of all the results and confirmed understand the plan. He spoke with the hospice service who accepted admission. EKG: Interpreted by me/EM physician: EKG shows normal sinus rhythm with no ST elevation. Heart rate 75 Diagnostic: Interpreted by me/EM physician: Chest x-ray without pneumonia, large effusion,pneumothorax, mild cardiomegaly. Radiology in agreement. Impression: 1. Viral syndrome 2. SALVATORE/dehydration 3. Mild hypokalemia 4. Generalized weakness 5. Syncope Lab Data Labs: Laboratory Results - last 24 hr 02/05/25 02/05/25 02/05/25 13:07 14:08 14:35 WBC 9.3 RBC 3.55 L Hgb 9.7 L Hct 30.7 L MCV 86.5 MCH 27.3 MCHC 31.6 L RDW Std Deviation 58.0 H RDW Coeff of Yaw 18.3 H Plt Count 477 H MPV 9.0 Immature Gran % (Auto) 0.600 Neut % (Auto) 65.9 Lymph % (Auto) 19.0 Beckham % (Auto) 10.7 H Eos % (Auto) 3.3 Baso % (Auto) 0.5 Absolute Neuts (auto) 6.1 Absolute Lymphs (auto) 1.77 Nucleated RBC % 0 PT 15.9 H INR 1.2 APTT 28.8 D-Dimer Quant (PE/DVT) < 0.27 L Sodium 135 Potassium 3.2 L Chloride 102 Carbon Dioxide 18.3 L Anion Gap 14 BUN 26 H Creatinine 2.33 H Estim Creat Clear Calc 20.51 L Est GFR (MDRD) Non-Af 22 L BUN/Creatinine Ratio 11.0 Glucose 155 H Lactic Acid 2.9 H* Calcium 6.8 L Magnesium 1.7 Total Bilirubin 0.27 AST 17 ALT 17 Alkaline Phosphatase 84 Troponin T High Sens 35 H D Troponin T Hi Sens 2 Hr NT pro BNP II 194 Total Protein 5.2 L Albumin 3.1 L Globulin 2.1 L Albumin/Globulin Ratio 1.4 Urine Color Urine Clarity Urine pH Ur Specific Jefferson Urine Protein Urine Glucose (UA) Urine Ketones Urine Occult Blood Urine Nitrite Urine Bilirubin Urine Urobilinogen Ur Leukocyte Esterase Urine RBC Urine WBC Ur Squamous Epith Cells Urine Bacteria Urine Mucus POC Glucose 02/05/25 02/05/25 02/05/25 15:03 15:46 16:07 WBC RBC Hgb Hct MCV MCH MCHC RDW Std Deviation RDW Coeff of Yaw Plt Count MPV Immature Gran % (Auto) Neut % (Auto) Lymph % (Auto) Beckham % (Auto) Eos % (Auto) Baso % (Auto) Absolute Neuts (auto) Absolute Lymphs (auto) Nucleated RBC % PT INR APTT D-Dimer Quant (PE/DVT) Sodium Potassium Chloride Carbon Dioxide Anion Gap BUN Creatinine Estim Creat Clear Calc Est GFR (MDRD) Non-Af BUN/Creatinine Ratio Glucose Lactic Acid Calcium Magnesium Total Bilirubin AST ALT Alkaline Phosphatase Troponin T High Sens Troponin T Hi Sens 2 Hr 32 H NT pro BNP II Total Protein Albumin Globulin Albumin/Globulin Ratio Urine Color Yellow Urine Clarity Clear Urine pH 5.0 Ur Specific Jefferson 1.020 Urine Protein 100 H Urine Glucose (UA) 1000 H Urine Ketones Negative Urine Occult Blood Negative Urine Nitrite Negative Urine Bilirubin Negative Urine Urobilinogen Normal Ur Leukocyte Esterase Negative Urine RBC 0 SEEN Urine WBC 0-5 SEEN Ur Squamous Epith Cells 0 SEEN Urine Bacteria 0 SEEN Urine Mucus 0 SEEN POC Glucose 173 H Radiography Diagnostic Testing: Clinical Impression(s) from Imaging Studies Brain CT 02/05/25 14:50 IMPRESSION: 1. No evidence of intracranial hemorrhage or acute ischemia. 2. Changes of chronic microvascular ischemia and volume loss. Reading Location: [facility] Cervical Spine CT 02/05/25 14:50 IMPRESSION: DEGENERATIVE CHANGES OF THE CERVICAL SPINE. NO EVIDENCE OF SIGNIFICANT OSSEOUS CENTRAL CANAL OR NEURAL FORAMINAL STENOSIS. [facility] Chest X-Ray 02/05/25 14:55 IMPRESSION: Mild cardiac enlargement. Reading Location: [facility] Discharge Plan Triage Chief Complaint: Syncope ED Provider: Tru Mayer Dx/Rx/DC Orders Prescriptions: No Action (DME) lancets Misc See Rx Instructions .ROUTE .MEDSUPPLY Qty: 300 0RF Rx Instructions: Check 3 times a day and as needed Trulicity 0.75 mg/0.5 mL pen injector 0.75 mg subcut QWEEK Qty: 2 3RF Trulicity 0.75 mg/0.5 mL pen injector 0.75 mg subcut QWEEK Qty: 2 0RF insulin lispro [Humalog KwikPen Insulin] 100 unit/mL insulin pen 25 unit subcut TID MDD 80 Rx Instructions: plus sliding scale nitroglycerin [Nitrostat] 0.4 mg tablet, sublingual 0.4 mg sublingual Q5-15M PRN (Reason: chest pain) Qty: 25 3RF Rx Instructions: do not exceed 3 doses per episode (DME) OneTouch Verio test strips Strip See Rx Instructions .ROUTE .MEDSUPPLY Qty: 300 3RF Rx Instructions: Check 3 times a day and as needed (DME) blood-glucose meter [OneTouch Verio Flex meter] Misc See Rx Instructions .Route Qty: 1 0RF Rx Instructions: As directed (DME) pen needle, diabetic [BD Ultra-Fine Sophia Pen Needle] 32 gauge x 5/32 needle See Rx Instructions .Route Qty: 400 3RF Rx Instructions: qid allopurinol 100 mg tablet 100 mg PO QHS Qty: 90 11RF nystatin [Nyamyc] 100,000 unit/gram powder 1 applic topical BID PRN (Reason: for infectious disease) Qty: 30 11RF (DME) FreeStyle Marilyn 14 Day Sensor Kit See Rx Instructions .ROUTE .MEDSUPPLY Qty: 6 3RF Rx Instructions: As directed (DME) handicap placard See Rx Instructions .ROUTE .MEDSUPPLY Qty: 1 0RF Rx Instructions: Length of time: 1 years Diagnosis: Impaired physical mobility Z74.09 carvedilol 6.25 mg tablet 6.25 mg PO BID Qty: 180 3RF Rx Instructions: must administer with a meal/food ticagrelor 90 mg tablet 90 mg PO BID Qty: 180 3RF atorvastatin 80 mg tablet 80 mg PO QHS Qty: 100 1RF Rx Instructions: cholesterol colestipol 1 gram tablet 1 g PO DAILY Qty: 100 1RF albuterol sulfate 90 mcg/actuation HFA aerosol inhaler 2 puff INHALATION Q6H PRN (Reason: Wheezing) Qty: 8.5 1RF Eliquis 5 mg tablet 5 mg PO BID Qty: 180 3RF icosapent ethyl [Vascepa] 1 gram capsule 2 g PO BID Qty: 120 5RF losartan 50 mg tablet 50 mg PO DAILY Qty: 84 0RF divalproex 125 mg capsule, delayed rel sprinkle 125 mg PO BID Qty: 56 1RF insulin glargine [Lantus Solostar U-100 Insulin] 100 unit/mL (3 mL) insulin pen 50 unit subcut QHS Qty: 45 1RF rabeprazole 20 mg tablet,delayed release (DR/EC) 20 mg PO DAILY Qty: 30 0RF levothyroxine 112 mcg tablet 112 mcg PO .monday to monday Qty: 25 0RF amitriptyline 50 mg tablet 50 mg PO QHS Qty: 30 0RF Primary Care Provider: Denise Uribe Referrals: Denise Uribe MD [Primary Care Provider, Internal Medicine] Print Language: Taiwanese What to do if you have Problems For any increased pain, shortness of breath, bleeding, nausea or vomiting, chestpain, or any unexpected problems, contact your Primary Care Provider. Call [facility] ([phone]) or report to the closest Emergency Room. Call 911 if necessary. 02/05/25 1646 <Electronically signed by Tru Mayer DO> Cosigner Signature (if applicable): CC: Dr. Denise Uribe MD ~ Signed [facility] Work Phone: [phone]) 928-714308-18-2025 Evaluation note* Diagnosis Onset Date Resolution Status Admit Date CKD (chronic kidney disease) stage 3, GFR 30-59 ml/min chronic January 06, 2025 11:14am Diabetes chronic January 06, 2 025 11:14am Elevated cholesterol with hi gh triglycerides chronic January 06 11:14am Essential hypertension chronic Au david 2024 11:14am Hypothyroidism chronic December 11:14am Obesity chronic January 06, 2 025 11:14am Vitamin D insufficiency chronic A ugust 2024 11:14am Syncope acute January 5:03pm [facility] Work Phone: 1(238) 957-181806-27-2025 Radiology Diagnostic study [facility]06-27-2025 Radiology Diagnostic study [facility]06-27-2025 Discharge summary Author Lacey Eastman [facility] Note Date/Time November 15, 2024 10:0 6pm [facility] Medical Records Department [address] [place] [address] Emergency Department Summary 11/15/24 MR#: [id number] Acct: [id number] Name: ASIF DELA CRUZ Rep #:[id number] : [id number] From: Lacey MUNOZ PCP: Dr. Denise Uribe MD Status:REG ER Location: ED HPI <TAMMY Cope - Last Filed: 11/15/24 22:06> History of Present Illness Chief Complaint: Weakness Narrative Narrative: Patient presenting today with multiple vague complaints. She reports that yesterday she developed midsternal chest pain that has since improved. She started feeling short of breath yesterday, this has improved today but she stillis feeling mildly dyspneic. She also feels generally weak. She has a PMH of CKD, HTN, T2DM, CAD, HLD, bipolar disorder, and paroxysmal A-fib on Eliquis. She reports that over the past year she has had intermittent dizziness that she describes as a room spinning sensation. She has been worked up for this as an outpatient with no clear cause. She has had head imaging in the past. She reports that she is currently feeling dizzy. She also reports her vision feels blurred. She denies recent illness, fevers, chills, history of stroke, nausea, and vomiting. [facility] <TAMMY Cope - Last Filed: 11/15/24 22:06> [facility] Medical History Recurrent falls Chronic anemia Acute kidney injury Bipolar disorder Umbilical hernia Hypothyroidism Hiatal hernia Gout Essential hypertension Atrial fibrillation Overweight (BMI 25.0-29.9) Polyneuropathy due to type 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 GFR 30-59 Fibromyalgia affecting multiple sites Shoulder pain, bilateral Hip pain, bilateral Tachybradycardia syndrome Near syncope Generalized OA 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 Abnormal stress test Hypertension Chronic pancreatic insufficiency Depression Home Medications ?Medication ?Instructions ?Recorded ?Last Taken ?Type lancets #300 ea 01/24/23 Unknown Rx nitroglycerin 0.4 mg sublingual 0.4 mg sublingual Q5-1 5M PRN chest 10/04/23 Unknown Rx tablet (Nitrostat) pain #25 tabs blood sugar diagnostic (OneTouch #300 ea 11/29/23 Unkn own Rx Verio test strips) blood-glucose meter (OneTouch #1 ea 11/29/23 Unknown R x Verio Flex Meter) TENS units (TENS 502 device) #1 ea 12/05/23 Unknown Rx pen needle, diabetic 32 gauge x #400 ea 02/27/24 Unkno wn Rx (BD Ultra-Fine Sophia Pen Needle) allopurinol 100 mg tablet 100 mg PO QHS gout #90 tabs 03/18/24 05/12/24 Rx nystatin 100,000 unit/gram topical 1 applic topical BI D PRN for 03/19/24 05/12/24 Rx powder ([facility]) infectious disease #30 GMS flash glucose sensor (FreeStyle #6 ea 03/21/24 Unknown Rx Marilyn 14 Day Sensor kit) handicap placard #1 ea 04/16/24 Unknown Rx insulin lispro 100 unit/mL 20 unit subcut TID diabetes 05/13/24 05/12/24 History subcutaneous pen (Humalog KwikPen (U-100) Insulin) insulin glargine 100 unit/mL (3 50 unit (0.5 mL) subcu t QHS 05/27/24 Unknown Rx mL) subcutaneous pen (Lantus diabetes #45 mL Solostar U-100 Insulin) carvedilol 6.25 mg tablet 6.25 mg PO BID blood pressur e #180 06/06/24 Unknown Rx tabs ticagrelor 90 mg tablet 90 mg PO BID #180 tabs 08/21 Unknown Rx atorvastatin 80 mg tablet 80 mg PO QHS Hyperlipidemia #100 09/03/24 Unknown Rx tabs colestipol 1 gram tablet 1 g PO DAILY cholesterol #10 0 tabs 09/03/24 Unknown Rx levothyroxine 112 mcg tablet 112 mcg PO MOTUWETHFR thy roid #90 09/03/24 Unknown Rx tabs albuterol sulfate 90 mcg/actuation 2 puff inhalation Q 6H PRN Wheezing 09/05/24 Unknown Rx aerosol inhaler #8.5 grams apixaban 5 mg tablet (Eliquis) 5 mg PO BID blood thinn er #180 tabs 09/11/24 Unknown Rx amitriptyline 50 mg tablet 50 mg PO QHS sleep #90 tabs 09/23/24 Unknown Rx icosapent ethyl 1 gram capsule 2 g (2 x 1 gram) PO BID #120 caps 10/07/24 Unknown Rx (Vascepa) losartan 50 mg tablet 50 mg PO DAILY blood pressur e #84 10/21/24 Unknown Rx TABLETS rabeprazole 20 mg tablet,delayed 20 mg PO DAILY for ac id reflux #30 10/28/24 Unknown Rx release TABLETS divalproex 125 mg capsule,delayed 125 mg PO BID bipola r #56 caps 11/12/24 Unknown Rx release sprinkle Allergy/AdvReac Type Severity Reaction Status Date / Time duloxetine (From Cymbalta) Allergy Itching Verified 09/17/24 17:10 Environmental Allergies: Allergy Cough Verified 09/17/24 17:10 Uncoded tomato Allergy Itching Verified 09/17/24 17:10 diphenhydramine (From AdvReac Severe other Verified 09/17/24 17:10 Benadryl) isosorbide AdvReac Intermediate Other Verified 09/17/24 17:10 adhesive tape (plastic tape) AdvReac Rash Verified 09/17/24 17:10 semaglutide (From Ozempic) AdvReac Diarrhea Verified 09/17/24 17:10 Family History Sister COPD (chronic obstructive pulmonary disease) Mother COPD (chronic obstructive pulmonary disease) Hypertension Alzheimer's dementia without behavioral disturbance Father Diabetes Hypertension Myocardial infarction Parkinsons disease Surgical History History of surgical procedure History of laparoscopic appendectomy History of total abdominal hysterectomy Hx of cholecystectomy Hx of shoulder surgery Presence of stent in coronary artery (~09/06/21) Social History household members: family current occupational status: retired 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 Smoking Status: Current every day smoker tobacco type: cigarettes Electronic Cigarette Use: not used alcohol intake: never substance use type: does not use caffeine: No what type of physical activity do you participate in: none do you feel safe at home: Yes ROS <TAMMY Cope - Last Filed: 11/15/24 22:06> ROS ED Constitutional Constitutional ED: Denies chills or fever(s) Eyes Eyes: Reports blurry vision Cardiovascular Cardiovascular: Reports chest pain Respiratory/Chest Respiratory/Chest: Reports dyspnea; Denies cough or wheezing Gastrointestinal Gastrointestinal: Denies abdominal pain, nausea or vomiting Genitourinary Genitourinary ED: Denies dysuria, hematuria or urinary urgency Musculoskeletal Musculoskeletal: Denies arthralgias or myalgias Integumentary Denies rash Neurologic Neurologic: Reports weakness EXAM <TAMMY Cope - Last Filed: 11/15/24 22:06> Physical Exam Const Vital Signs: 11/15/24 18:17 11/15/24 18:42 11/15/24 18:43 Temperature 98.7 F Temperature Source Oral Pulse Rate 62 65 Respiratory Rate 20 H 17 Respiratory Effort Respiratory Pattern Blood Pressure 77/51 L 135/62 H Blood Pressure Mean 59 86 Pulse Ox 95 97 Oxygen Delivery Method Room Air Room Air 11/15/24 18:44 11/15/24 18:45 11/15/24 19:00 Temperature Temperature Source Pulse Rate 63 Respiratory Rate 20 H Respiratory Effort Normal Non-Labored Respiratory Pattern Normal Blood Pressure 108/61 116/58 L Blood Pressure Mean 76 74 Pulse Ox 96 Oxygen Delivery Method 11/15/24 19:15 11/15/24 19:15 11/15/24 19:30 Temperature Temperature Source Pulse Rate 66 Respiratory Rate 24 H Respiratory Effort Respiratory Pattern Blood Pressure 105/66 105/66 104/55 L Blood Pressure Mean 77 77 67 Pulse Ox 96 95 Oxygen Delivery Method 11/15/24 19:54 11/15/24 20:00 11/15/24 20:00 Temperature Temperature Source Pulse Rate 77 69 67 Respiratory Rate 18 24 H Respiratory Effort Respiratory Pattern Blood Pressure 125/59 H Blood Pressure Mean 81 Pulse Ox 95 96 98 Oxygen Delivery Method 11/15/24 20:17 11/15/24 20:30 11/15/24 20:45 Temperature Temperature Source Pulse Rate 69 70 74 Respiratory Rate 25 H 24 H 26 H Respiratory Effort Respiratory Pattern Blood Pressure 125/59 H 124/64 H Blood Pressure Mean 80 83 Pulse Ox 96 95 95 Oxygen Delivery Method 11/15/24 21:00 Temperature Temperature Source Pulse Rate 81 Respiratory Rate 25 H Respiratory Effort Respiratory Pattern Blood Pressure 175/96 H Blood Pressure Mean 113 Pulse Ox 100 Oxygen Delivery Method Positive well nourished, well developed and no apparent distress General Appearance ED: well developed HEENT Reports normocephalic and head/scalp atraumatic Mouth ED: Yes moist mucous membranes normal Eyes PERRL and EOMs intact bilaterally Neck full ROM and supple Chest Wall inspection of chest normal Resp normal respiratory effort and clear to auscultation bilaterally Cardio regular rate and regular rhythm GI soft to palpation, non-tender, non-distended and no masses Back/Spine normal ROM and normal to inspection Extremity normal to inspection and full ROM Neuro oriented x3, CN's II-XII intact bilaterally, moves all extremities, no focal motor deficits and no sensory deficits noted Neuro Narrative: NIH 0 Sensorium / Orientation: awake and alert Motor Exam: strength 5/5 throughout Psych mental status grossly normal and thought process normal Skin no rashes or lesions noted and no wounds <Dr. Sanju Hernandez MD - Last Filed: 11/15/24 22:01> Physical Exam Const Vital Signs: 11/15/24 18:17 11/15/24 18:42 11/15/24 18:43 Temperature 98.7 F Temperature Source Oral Pulse Rate 62 65 Respiratory Rate 20 H 17 Respiratory Effort Respiratory Pattern Blood Pressure 77/51 L 135/62 H Blood Pressure Mean 59 86 Pulse Ox 95 97 Oxygen Delivery Method Room Air Room Air 11/15/24 18:44 11/15/24 18:45 11/15/24 19:00 Temperature Temperature Source Pulse Rate 63 Respiratory Rate 20 H Respiratory Effort Normal Non-Labored Respiratory Pattern Normal Blood Pressure 108/61 116/58 L Blood Pressure Mean 76 74 Pulse Ox 96 Oxygen Delivery Method 11/15/24 19:15 11/15/24 19:15 11/15/24 19:30 Temperature Temperature Source Pulse Rate 66 Respiratory Rate 24 H Respiratory Effort Respiratory Pattern Blood Pressure 105/66 105/66 104/55 L Blood Pressure Mean 77 77 67 Pulse Ox 96 95 Oxygen Delivery Method 11/15/24 19:54 11/15/24 20:00 11/15/24 20:00 Temperature Temperature Source Pulse Rate 77 69 67 Respiratory Rate 18 24 H Respiratory Effort Respiratory Pattern Blood Pressure 125/59 H Blood Pressure Mean 81 Pulse Ox 95 96 98 Oxygen Delivery Method 11/15/24 20:17 11/15/24 20:30 11/15/24 20:45 Temperature Temperature Source Pulse Rate 69 70 74 Respiratory Rate 25 H 24 H 26 H Respiratory Effort Respiratory Pattern Blood Pressure 125/59 H 124/64 H Blood Pressure Mean 80 83 Pulse Ox 96 95 95 Oxygen Delivery Method 11/15/24 21:00 Temperature Temperature Source Pulse Rate 81 Respiratory Rate 25 H Respiratory Effort Respiratory Pattern Blood Pressure 175/96 H Blood Pressure Mean 113 Pulse Ox 100 Oxygen Delivery Method MDM <TAMMY Cope - Last Filed: 11/15/24 22:06> [facility] MDM Narrative Medical decision making narrative: Patient presenting today with multiple vague complaints. She reports feeling generally weak. She had some chest pain and dyspnea yesterday that has since improved. Her O2 saturation is 100% on room air. Low suspicion for PE given she is on Eliquis and compliant with this. She has chronic dizziness and is currently feeling dizzy. She has been worked up for this in the past and has had prior head imaging. However, head CT was obtained here and is negative for any acute findings. Given her generalized weakness, broad workup obtained, her CBC reveals a hemoglobin of 8.8 which is consistent with previous labs. Her sodium is 130, she does have a history of hyponatremia. BUN 20, UA is contaminated and does not show evidence of UTI. Troponin is negative. Triage note also reported confusion, she is not confused on my exam, she is alert and oriented x 4. She reports complete resolution of her dizziness on reexamination, she is feeling well and is wanting to go home. She will be discharged in stable condition. Recommended she have close follow-up with her PCP. I have personally performed a face to face assessment of the patient and have reviewed the CAMELIA Note. I performed a substantive portion of the visit including all aspects of the following. My billings findings include: History is 69-year-old female evaluated with our physician assistant finance manager. Patient complaining of generalized weakness. Exam is [well-appearing 69-year-old female. Vital signs are stable. She is afebrile. She does not appear to be septic toxic or in distress. Her initial BP was 77/51 currently its 105/66. She is afebrile. Pulse ox is 96% on room air no hypoxia. H EENT exam pupils round reactive light. Moist mucous membranes. Neck nontender no JVD no lymphadenopathy. Lungs clear to auscultation bilateral. Heart regular rhythm rate about 65 no murmur. Chest wall and ribs nontender. Abdomen soft nontender. Moving all 4 extremities. Calves are nontender without edema or cords. Neurologically she is awake alert. Answering questions following commands. She knows the month, year and president. She knows where she is hide. She has no focal motor deficits.] Medical Decision Making [69-year-old female general malaise.] Other additions or changes: [None] Lab Data Labs: Laboratory Results - last 24 hr 11/15/24 11/15/24 11/15/24 18:25 19:58 21:14 WBC 8.4 RBC 3.19 L Hgb 8.8 L Hct 27.3 L MCV 85.6 MCH 27.6 MCHC 32.2 RDW Std Deviation 57.3 H RDW Coeff of Yaw 18.4 H Plt Count 458 H MPV 8.9 Immature Gran % (Auto) 1.900 H Neut % (Auto) 66.7 Lymph % (Auto) 19.5 Beckham % (Auto) 8.9 Eos % (Auto) 2.3 Baso % (Auto) 0.7 Absolute Neuts (auto) 5.6 Absolute Lymphs (auto) 1.65 Nucleated RBC % 0 Sodium 130 L Potassium 4.6 Chloride 96 L Carbon Dioxide 19.7 L Anion Gap 15 BUN 20 H Creatinine 1.18 Estim Creat Clear Calc 40.97 L Est GFR (MDRD) Non-Af 50 L BUN/Creatinine Ratio 17.0 Glucose 179 H Calcium 8.3 Troponin T High Sens 14 Troponin T Hi Sens 2 Hr 15 H Urine Color Yellow Urine Clarity Clear Urine pH 5.0 Ur Specific Jefferson 1.010 Urine Protein 30 H Urine Glucose (UA) 250 H Urine Ketones Negative Urine Occult Blood Negative Urine Nitrite Negative Urine Bilirubin Negative Urine Urobilinogen Normal Ur Leukocyte Esterase 25 H Urine RBC 0 SEEN Urine WBC 0-5 SEEN Ur Squamous Epith Cells 5-10 SEEN Urine Bacteria 1+ Urine Mucus 0 SEEN Radiography Diagnostic Testing: Clinical Impression(s) from Imaging Studies Brain CT 11/15/24 19:05 IMPRESSION: No acute intracranial finding. Reading Location: [facility] Chest X-Ray 11/15/24 19:10 IMPRESSION: Cardiomegaly without overt failure. Reading Location: [id number] EKG Initial EKG: Comments: 63 bpm, normal sinus rhythm, no ST elevation, interpreted by attending ED physician <Dr. Sanju Hernandez MD - Last Filed: 11/15/24 22:01> [facility] MDM Narrative Medical decision making narrative: I have personally performed a face to face assessment of the patient and have reviewed the CAMELIA Note. I performed a substantive portion of the visit including all aspects of the following. My billings findings include: History is 69-year-old female evaluated with our physician assistant finance manager. Patient complaining of generalized weakness. Exam is [well-appearing 69-year-old female. Vital signs are stable. She is afebrile. She does not appear to be septic toxic or in distress. Her initial BP was 77/51 currently its 105/66. She is afebrile. Pulse ox is 96% on room air no hypoxia. H EENT exam pupils round reactive light. Moist mucous membranes. Neck nontender no JVD no lymphadenopathy. Lungs clear to auscultation bilateral. Heart regular rhythm rate about 65 no murmur. Chest wall and ribs nontender. Abdomen soft nontender. Moving all 4 extremities. Calves are nontender without edema or cords. Neurologically she is awake alert. Answering questions following commands. She knows the month, year and president. She knows where she is hide. She has no focal motor deficits.] Medical Decision Making [69-year-old female general malaise.] Other additions or changes: [None] Lab Data Attestation: I reviewed the patient's lab results. Lab results narrative: CBC shows a white count 8. H&H 8.8 and 28 is her baseline anemia. platelets 458. Electrolytes show sodium 130. Gap 15. BUN and creatinine 21.1. Glucose 179. Troponin 14. Labs: Laboratory Results - last 24 hr 11/15/24 11/15/24 11/15/24 18:25 19:58 21:14 WBC 8.4 RBC 3.19 L Hgb 8.8 L Hct 27.3 L MCV 85.6 MCH 27.6 MCHC 32.2 RDW Std Deviation 57.3 H RDW Coeff of Yaw 18.4 H Plt Count 458 H MPV 8.9 Immature Gran % (Auto) 1.900 H Neut % (Auto) 66.7 Lymph % (Auto) 19.5 Beckham % (Auto) 8.9 Eos % (Auto) 2.3 Baso % (Auto) 0.7 Absolute Neuts (auto) 5.6 Absolute Lymphs (auto) 1.65 Nucleated RBC % 0 Sodium 130 L Potassium 4.6 Chloride 96 L Carbon Dioxide 19.7 L Anion Gap 15 BUN 20 H Creatinine 1.18 Estim Creat Clear Calc 40.97 L Est GFR (MDRD) Non-Af 50 L BUN/Creatinine Ratio 17.0 Glucose 179 H Calcium 8.3 Troponin T High Sens 14 Troponin T Hi Sens 2 Hr 15 H Urine Color Yellow Urine Clarity Clear Urine pH 5.0 Ur Specific Jefferson 1.010 Urine Protein 30 H Urine Glucose (UA) 250 H Urine Ketones Negative Urine Occult Blood Negative Urine Nitrite Negative Urine Bilirubin Negative Urine Urobilinogen Normal Ur Leukocyte Esterase 25 H Urine RBC 0 SEEN Urine WBC 0-5 SEEN Ur Squamous Epith Cells 5-10 SEEN Urine Bacteria 1+ Urine Mucus 0 SEEN Radiography Chest X-Ray - ED: Read by ED Physician, Read by Radiologist, Lungs, Mediastinum, Bony Structures, No Acute Disease, Chronic Changes and Cardiomegaly Diagnostic Testing: Clinical Impression(s) from Imaging Studies Brain CT 11/15/24 19:05 IMPRESSION: No acute intracranial finding. Reading Location: [facility] Chest X-Ray 11/15/24 19:10 IMPRESSION: Cardiomegaly without overt failure. Reading Location: [facility] Chest x-ray, portable, single view, interpreted by myself and radiologist shows cardiomegaly. No failure. No pneumonia. No acute process. Chronic changes. Rhythm Strip Rhythm Strip: Sinus Rhythm Rate: 63 Ectopy: None EKG Initial EKG: Attestation: I personally reviewed and interpreted this EKG as follows: Interpretation: Sinus Rhythm and No Acute Injury Pattern Discharge Plan Triage Chief Complaint: Weakness ED Midlevel Provider: Lacey Eastman ED Provider: Sanju Hernandez Dx/Rx/DC Orders Clinical Impression: Dizziness, Chronic anemia, Generalized weakness, Chronic anticoagulation Instructions: ED Dizziness, Uncertain Cause, ED Weakness Uncertain Cause Prescriptions: No Action (DME) lancets Misc See Rx Instructions .ROUTE .MEDSUPPLY Qty: 300 0RF Rx Instructions: Check 3 times a day and as needed (DME) TENS 502 Device See Rx Instructions .Route Qty: 1 0RF Rx Instructions: As directed insulin lispro [Humalog KwikPen Insulin] 100 unit/mL insulin pen 20 unit subcut TID nitroglycerin [Nitrostat] 0.4 mg tablet, sublingual 0.4 mg sublingual Q5-15M PRN (Reason: chest pain) Qty: 25 3RF Rx Instructions: do not exceed 3 doses per episode (DME) OneTouch Verio test strips Strip See Rx Instructions .ROUTE .MEDSUPPLY Qty: 300 3RF Rx Instructions: Check 3 times a day and as needed (DME) blood-glucose meter [OneTouch Verio Flex meter] Misc See Rx Instructions .Route Qty: 1 0RF Rx Instructions: As directed (DME) pen needle, diabetic [BD Ultra-Fine Sophia Pen Needle] 32 gauge x 5/32 needle See Rx Instructions .Route Qty: 400 3RF Rx Instructions: qid allopurinol 100 mg tablet 100 mg PO QHS Qty: 90 11RF nystatin [Nyamyc] 100,000 unit/gram powder 1 applic topical BID PRN (Reason: for infectious disease) Qty: 30 11RF (DME) FreeStyle Marilyn 14 Day Sensor Kit See Rx Instructions .ROUTE .MEDSUPPLY Qty: 6 3RF Rx Instructions: As directed (DME) handicap placard See Rx Instructions .ROUTE .MEDSUPPLY Qty: 1 0RF Rx Instructions: Length of time: 1 years Diagnosis: Impaired physical mobility Z74.09 insulin glargine [Lantus Solostar U-100 Insulin] 100 unit/mL (3 mL) insulin pen 50 unit subcut QHS Qty: 45 1RF carvedilol 6.25 mg tablet 6.25 mg PO BID Qty: 180 3RF Rx Instructions: must administer with a meal/food ticagrelor 90 mg tablet 90 mg PO BID Qty: 180 3RF atorvastatin 80 mg tablet 80 mg PO QHS Qty: 100 1RF Rx Instructions: cholesterol colestipol 1 gram tablet 1 g PO DAILY Qty: 100 1RF levothyroxine 112 mcg tablet 112 mcg PO MOTUWETHFR Qty: 90 0RF albuterol sulfate 90 mcg/actuation HFA aerosol inhaler 2 puff INHALATION Q6H PRN (Reason: Wheezing) Qty: 8.5 1RF Eliquis 5 mg tablet 5 mg PO BID Qty: 180 3RF amitriptyline 50 mg tablet 50 mg PO QHS Qty: 90 0RF icosapent ethyl [Vascepa] 1 gram capsule 2 g PO BID Qty: 120 5RF losartan 50 mg tablet 50 mg PO DAILY Qty: 84 0RF rabeprazole 20 mg tablet,delayed release (DR/EC) 20 mg PO DAILY Qty: 30 1RF divalproex 125 mg capsule, delayed rel sprinkle 125 mg PO BID Qty: 56 1RF Primary Care Provider: Denise Uribe Referrals: Denise Uribe MD [Primary Care Provider] - 5-7 Days Activity Restrictions/Additional Instructions: Follow-up with your PCP and return for any other concerns or worsening symptoms. Print Language: Taiwanese Disposition Disposition: Home, Self Care What to do if you have Problems For any increased pain, shortness of breath, bleeding, nausea or vomiting, chestpain, or any unexpected problems, contact your Primary Care Provider. Call [facility] ([phone]) or report to the closest Emergency Room. Call 911 if necessary. 11/15/242205 <Electronically signed by Lacey MUNOZ> Cosigner Signature (if applicable): 11/15/242200 <Electronically signed by Sanju Hernandez MD> CC: Dr. Denise Uribe MD ~ Signed [facility] Work Phone: 1(812) 913-897205-01-2025 [facility]04-30-2025 Evaluation note* Diagnosis Onset Date Resolution Status Admit Date Lactic acidosis resolved August 10:19pm Partial small bowel obstruction resolved September 17, 2024 10:19pm Diarrhea inactive September 17 10:19pm [facility] Work Phone: [phone] Evaluation note* Diagnosis Onset Date Resolution Status Admit Date Lactic acidosis resolved August 10:19pm Partial small bowel obstruction reso lved September 17, 2024 10:19pm Diarrhea inactive September 17 10:19pm CKD (chronic kidney disease) stage 3, GFR 30-59 ml/min chronic January 06, 2025 11:14am Diabetes chronic January 06 11:14am Elevated cholesterol with hi gh triglycerides chronic January 06 11:14am Essential hypertension chronic Au david 2024 11:14am Hypothyroidism chronic December 11:14am Obesity chronic January 06 11:14am Vitamin D insufficiency chronic A ugust 2024 11:14[facility] Work Phone: 1(846) 786-529804-29-2025 Radiology Diagnostic study [facility]03-05-2025 Evaluation note* Diagnosis Onset Date Resolution Status Admit Date Anemia acute July 24 11:19am Dehydration acute July 24 11:19am Dizziness acute July 24 11:19am Hyponatremia chronic July 24, 2 025 11:19am 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 GFR 30-59 chronic July 24, 2024 11:19am Bipolar disorder noneactive July 11:19am GERD (gastroesophageal reflu x disease) noneactive July 24, 2024 11:19am Debility noneactive July 24 11:19am Hospital discharge follow-up noneact ann July 24, 2024 11:19am Cboue-rh-slnixqz kidney injury nonea ctive July 24, 2024 11:19am Paralytic ileus noneactive July 11:19am Lactic acidosis resolved August 10:19pm Partial small bowel obstruction resolved September 17, 2024 10:19pm Diarrhea inactive September 17 10:19pm [facility] Work Phone: 1(888) 441-793301-28-2025 [facility]01-01-2025 [facility]12-23-2024 Evaluation note* Diagnosis Onset Date Resolution Status Admit Date Dehydration acute April 8:01pm Hyponatremia chronic April 8:01pm Adverse drug reaction resolved Apr 8:01pm SALVATORE (acute kidney injury) resolved May 13, 2024 8:01pm Gastroenteritis resolved May 13, 2024 8:01pm Hyperkalemia resolved April 8:01pm Intractable nausea and vomiting resolved May 13 024 8:01pm Lactic acidosis resolved May 13, 2024 8:01pm Leukocytosis resolved April 8:01pm Nausea vomiting and diarrhea resolve d May 13, 2024 8:01pm Paralytic ileus of small intestine resolved May 13, 024 8:01pm Thrombocytosis resolved April 222023 8:01pm Watery diarrhea resolved May 13, 2024 8:01pm Acute kidney injury inactive 2024 7:59pm Chronic anemia inactive June 162024 7:59pm Recurrent falls inactive May 232024 7:59pm Anemia acute July 24 11:19am Dehydration acute July 24 11:19am Dizziness acute July 24 11:19am Hyponatremia chronic July 24, 11:19am 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 GFR 30-59 chronic July 24, 2024 11:19am Bipolar disorder noneactive July 11:19am GERD (gastroesophageal reflu x disease) noneactive July 24, 2024 11:19am Debility noneactive July 24 11:19am Hospital discharge follow-up noneact ann July 24, 2024 11:19am Uqbzi-rz-oxrqmsp kidney injury nonea ctive July 24, 2024 11:19am Paralytic ileus noneactive July 11:19am [facility] Work Phone: 1([phone]) 950-572312-23-2024 Evaluation note* Diagnosis Onset Date Resolution Status [...] acute July 24 11:19am Hyponatremia chronic July 24, 2 025 11:19am 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 GFR 30-59 chronic July 24, 2024 11:19am Bipolar disorder noneactive July 11:19am GERD (gastroesophageal reflu x disease) noneactive July 24, 2024 11:19am Debility noneactive July 24 11:19am Hospital discharge follow-up noneact ann July 24, 2024 11:19am Xhkqh-og-lygnkcf kidney injury nonea ctive July 24, 2024 11:19am Paralytic ileus noneactive July 11:19am Lactic acidosis acute August 10:19pm [facility] Work Phone: 1(482) 487-943104-22-2024 Discharge summary Author Tobi Riojas [facility] September 11, 2023 1:06pm Note Date/Time September 11, 2023 10: 57am [facility] Medical Records Department [address] [place] [address] Emergency Department Summary 09/11/23 MR#: [id number] Acct: [id number] Name: ASIF DELA CRUZ Rep #:[id number] : [id number] 68 From: Tobi Riojas MD PCP: Dr. 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 Call [facility] ([phone]) or report to the closest Emergency Room. Call 911 if necessary. 09/11/23 1306 <Electronically signed by Tobi Riojas MD> Cosigner Signature (if applicable): CC: Dr. Denise Uribe MD ~ Signed [facility] Work Phone: 1(183) 269-180404-27-[address] Brar [facility] September 15, 2022 7:29pm Note Date/Time September 15, 2022 4:1 0pm [facility] Medical Records Department [address] [place] [address] Emergency Department Summary 09/15/22 MR#: [id number] Acct: [id number] Name: ASIF DELA CRUZ Rep #:[id number] : 1955 67 From: Jozef Brar DO PCP: Devi Delgado NP-C Status:REG ER Location: ED HPI History of [...] allergic reaction and she feels improved currently. 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 Atrial fibrillation [...] 30-59 Umbilical hernia Home Medications blood-glucose meter ([employer] Verio Flex Start kit) #1 ea 11/11/20 [Rx Last Taken Unknown] blood sugar diagnostic ([employer] Verio test strips) #300 ea 11/12/20 [Rx Last Taken Unknown] lancets ([employer] ResearchTouch UltraSoft Lancets) #300 ea 11/12/20 [Rx Last [...] Taken Unknown] nystatin 100,000 unit/gram topical powder ([facility]) 1 applic topical BID PRN skininfection #30 [...] gauge x 5/16 (Lite Touch Insulin Pen [place]) #400 ea 08/26/22 [Rx Last Taken Unknown] [...] Positive well nourished General Appearance ED: NAD HEENT HEENT Narrative: Cheeks and forehead appear erythematous. There [...] 80.4 H Lymph % (Auto) 12.8 L Beckham % (Auto) 5.7 Eos % (Auto) 0.3 [...] Clarity Clear Urine pH 5.0 Ur Specific Jefferson 1.020 Urine Protein 100 H Urine Glucose [...] (Auto) Neut % (Auto) Lymph % (Auto) Beckham % (Auto) Eos % (Auto) Baso % [...] Color Urine Clarity Urine pH Ur Specific Jefferson Urine Protein Urine Glucose (UA) Urine Ketones [...] Signed: Chalino Holcomb DO at 17:03 EDT , Discharge Plan Triage Chief Complaint: Allergic [...] pen needle, diabetic [Lite Touch Insulin Pen [place]] 31 gauge x 5/16 needle See Rx [...] Devi Delgado NP Referrals: Devi Delgado NP, [employer] SCRE[employer]INTER-C [Primary Care Provider] - Disposition Disposition: Home, Self Care What to do if you have Problems For any increased pain, shortness of breath, bleeding, nausea or vomiting, chestpain, or any unexpected problems, contact your Primary Care Provider. Call [facility] ([phone]) or report to the closest Emergency Room. Call 911 if necessary. 09/15/221928 <Electronically signed by Jozef Brar DO> Cosigner Signature (if applicable): CC: [employer] SCREEN [employer]INTER-C Devi Delgado ~ Signed [facility] Work Phone: 1(830) 725-643203-20-[address] Schwartz [facility] August 08, 2022 9:08am Note Date/Time August 08, 2022 9:0 8am [facility] Medical Records Department [address] [place] [id number] Discharge Summary 08/08/22 0904 MR#: [id number] Acct: [id number] Name: ASIF DELA CRUZ Rep #:[id number] : 1955 67 From: Bassem Schwartz MD PCP: Dr. Pat Bennett MD Status:ADM IN Location: [place] [address] Providers Date of Admission: 08/04/22 Date of Discharge: 08/08/22 Primary Care Physician: Dr. Pat Bennett MD Consultations 08/04/22 21:17 Consult: General Surgery Routine Consulting Provider: Dior Alva Reason for Consult: Ileus EMERGENT Consult: No Notified: Yes Date Notified: 08/04/22 Time Notified: [...] Medications at Discharge Home Medications blood-glucose meter ([employer] Verio Flex Start kit) #1 ea 11/11/20 blood sugar diagnostic ([employer] Verio test strips) #300 ea 11/12/20 lancets ([employer] UltraSoft Lancets) #300 ea 11/12/20 nitroglycerin 0.4 [...] gauge x 5/16 (Lite Touch Insulin Pen [place]) #100 ea 11/10/21 albuterol sulfate 90 mcg/actuation [...] (Auto) 83.5 H, Lymph % (Auto) 7.7 L,Beckham % (Auto) 7.2, Eos % (Auto) 0.3, [...] pen needle, diabetic [Lite Touch Insulin Pen [place]] 31 gauge x 5/16 needle See Rx [...] Self Care Charges/Coding Visit Charges Inpatient E&M: 06824 Disch Hosp >30min 08/08/22 0908 <Electronically signed by Bassem Schwartz MD> Cosigner Signature (if applicable): CC: Dr. Bassem Schwartz MD; Dr. Pat Bennett MD~ Signed [facility] Work Phone: 1(104) 843-114303-19-[address] Buckley [facility] August 07, 2022 2:54pm Note Date/Time August 07, 2022 8:0 9am [facility] Medical Records Department [address] [place] [address] Progress Note - Hospitalist 08/07/22 0802 MR#: [id number] Acct: [id number] Name: ASIF DELA CRUZ Rep #:[id number] : 1955 67 From: Carrillo Buckley DO PCP: Dr. Pat Bennett MD Status:ADM [id number] Reason for Visit Reason for Visit: Diagnoses [...] (Auto) 81.0 H, Lymph % (Auto) 10.7L, Beckham % (Auto) 6.8, Eos % (Auto) 0.3, [...] off anticoagulation at this time. Admit to [facility] with telemetry. * CAD status post stents Stable N.p.o.. Hold home antiplatelets. * Hypertension Blood pressure is not within goal DVT Prophylaxis SCDs ordered Charges/Coding Visit Charges Inpatient E&M: 57344 Subs Hosp L3 08/07/22 1152 <Electronically signed [...] Cosigner Signature (if applicable): cc: ~* Signed [facility] Work Phone: 1(330) 757-501203-19-[address] Butler [facility] August 07, 2022 7:29am Note Date/Time August 07, 2022 7:2 9am [facility] Medical Records Department [address] [place] [address] Progress Note - Surgery 08/07/22 0728 MR#: [id number] Acct: [id number] Name: ASIF DELA CRUZ Rep #:[id number] : 1955 67 From: Franck reyes MD PCP: Dr. Pat Bennett MD Status:ADM IN Location: [facility] MP881-6 Subjective Subjective Patient reports she tolerated a [...] (Auto) 81.0 H, Lymph % (Auto) 10.7L, Beckham % (Auto) 6.8, Eos % (Auto) 0.3, [...] no abdominal pain. Franck Butler MD Pager: [facility] [address] [place] [address], [address] [place] [address] Office: 08/07/22 8369 <Electronically signed by Franck Butler MD> Cosigner Signature (if applicable): CC: ~ Signed [facility] Work Phone: 1(363) 425-419103-18-[address] Buckley [facility] August 06, 2022 12:25pm Note Date/Time August 06, 2022 7:2 3am [facility] Medical Records Department [address] [place] [address] Progress Note - Hospitalist 08/06/22715 MR#: [id number] Acct: [id number] Name: ASIF DELA CRUZ Rep #:[id number] : 1955 67 From: Carrillo Buckley DO PCP: Dr. Pat Bennett MD Status:ADM IN [id number] Reason for Visit Reason for Visit: Diagnoses [...] (Auto) 80.6 H, Lymph % (Auto) 11.7L, Beckham % (Auto) 6.7, Eos % (Auto) 0.1, [...] off anticoagulation at this time. Admit to [facility] with telemetry. * CAD status post stents Stable N.p.o.. Hold home antiplatelets. * Hypertension Blood pressure is not within goal Home blood pressure medication held secondary to n.p.o. status. As needed hydralazine IV ordered. Trend blood pressure and adjust blood pressure medications. DVT Prophylaxis SCDs ordered Charges/Coding Visit Charges Inpatient E&M: 85350 Subs Hosp L2 08/06/22 1225 <Electronically signed by Carrillo Buckley DO> Cosigner Signature (if applicable): CC: ~ Signed [facility] Work Phone: 1(338) 890-142303-18-[address] Butler [facility] August 06, 2022 8:26am Note Date/Time August 06, 2022 8:2 4am [facility] Medical Records Department [address] [place] [address] Progress Note - Surgery 08/06/22823 MR#: [id number] Acct: [id number] Name: ASIF DELA CRUZ Rep #:[id number] : 1955 67 From: Franck reyes MD PCP: Dr. Pat Bennett MD Status:ADM IN Location: [place] [address] Subjective Subjective Patient was very nauseous this [...] (Auto) 80.6 H, Lymph % (Auto) 11.7L, Beckham % (Auto) 6.7, Eos % (Auto) 0.1, [...] at this time. Franck Butler MD Pager: [facility] [address] [place] [address], [address] [place] [address] Office: 08/06/22 08 <Electronically signed by Franck Butler MD> Cosigner Signature (if applicable): CC: ~ Signed [facility] Work Phone: 1(460) 784-856103-17-[address] Alva [facility] August 05, 2022 8:58pm Note Date/Time August 05, 2022 7:2 6am [facility] Medical Records Department [address] [place] [address] Consultation - Surgical 08/05/22723 MR#: [id number] Acct: [id number] Name: ASIF DELA CRUZ Rep #:[id number] : 1955 67 From: Dior Alva MD PCP: Dr. Pat Bennett MD Status:ADM IN Location: [facility] LY947-5 Assessment & Plan Assessment/Plan (1) Abdominal pain: [...] small bowel follow-through. Dior Alva M.D. Pager: [phone] [facility] [address] [place] [address], [facility], [address] [place] [address] Office: [phone] HPI Consult Data Date of Consult: 08/05/22 HPI Narrative HPI Narrative: ASIF DELA CRUZ, is a 67 F who [...] and believes that this for her bowels. [facility] Medical History (Updated 08/05/22 @ 07:[address] Carrillo Buckley, ) Acute kidney injury superimposed on chronic kidney disease 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 Atrial fibrillation [...] 30-59 Umbilical hernia Home Medications blood-glucose meter ([employer] Verio Flex Start kit) #1 ea 11/11/20 [Rx Last Taken Unknown] blood sugar diagnostic ([employer] Verio test strips) #300 ea 11/12/20 [Rx Last Taken Unknown] lancets ([employer] UltraSoft Lancets) #300 ea 11/12/20 [Rx Last [...] gauge x 5/16 (Lite Touch Insulin Pen [place]) #100 ea 11/10/21 [Rx Last Taken Unknown] [...] 82.0 H, Lymph % (Auto) 10.5 L, Beckham % (Auto) 5.1, Eos % (Auto) 0.5, [...] % (Auto) 66.9, Lymph % (Auto) 21.4, Beckham % (Auto) 8.7, Eos % (Auto) 1.9, [...] EDT , Charges/Coding Visit Charges Inpatient E&M: 63095 Init Hosp L3 08/05/222057 <Electronically signed by Dior Alva MD> Cosigner Signature (if applicable): CC: Dr. Daljit Mg MD; Dr. Pat Bennett MD; Dr. Dior Alva MD~ Signed [facility] Work Phone: 1([phone]) 940-753803-17-[address] Buckley [facility] August 05, 2022 2:52pm Note Date/Time August 05, 2022 7:2 8am [facility] Medical Records Department [address] [place] [address] Progress Note - Hospitalist 08/05/22 0721 MR#: [id number] Acct: [id number] Name: ASIF DELA CRUZ Rep #:[id number] : 1955 67 From: Carrillo Buckley DO PCP: Dr. Pat Bennett MD Status:ADM IN Location: [place] [address]695-1 Reason for Visit Reason for Visit: Diagnoses [...] 82.0 H, Lymph % (Auto) 10.5 L, Beckham % (Auto) 5.1, Eos % (Auto) 0.5, [...] % (Auto) 66.9, Lymph % (Auto) 21.4, Beckham % (Auto) 8.7, Eos % (Auto) 1.9, [...] off anticoagulation at this time. Admit to [facility] with telemetry. * CAD status post stents Stable N.p.o.. Hold home antiplatelets. * Hypertension Blood pressure is not within goal Home blood pressure medication held secondary to n.p.o. status. As needed hydralazine IV ordered. Trend blo od pressure and adjust blood pressure medications. DVT Prophylaxis SCDs ordered Charges/Coding Visit Charges Inpatient E&M: 97141 Subs Hosp L2 08/05/22 1156 <Electronically signed [...] Cosigner Signature (if applicable): cc: ~* Signed [facility] Work Phone: 1(879) 924-287903-17-[address] Hernandez [facility] August 04, 2022 11:09pm Note Date/Time August 04, 2022 5:2 8pm [facility] Medical Records Department [address] [place] [address] Emergency Department Summary 08/04/22 MR#: [id number] Acct: [id number] Name: ASIF DELA CRUZ Rep #:[id number] : 1955 67 From: Sanju Hernandez MD PCP: Dr. Pat Bennett MD Status:ADM IN Location: [place] [address]-1 HPI History of Present Illness Chief Complaint: [...] similar symptoms: Yes Recent Illness/Hospitalization: No PFSH PFS Medical History Acute kidney injury superimposed on chronic kidney disease 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 Atrial fibrillation [...] disease GFR 30-59 Home Medications blood-glucose meter ([employer] Verio Flex Start kit) #1 ea 11/11/20 [Rx Last Taken Unknown] blood sugar diagnostic ([employer] Verio test strips) #300 ea 11/12/20 [Rx Last Taken Unknown] lancets ([employer] UltraSoft Lancets) #300 ea 11/12/20 [Rx Last [...] gauge x 5/16 (Lite Touch Insulin Pen [place]) #100 ea 11/10/21 [Rx Last Taken Unknown] [...] 82.0 H Lymph % (Auto) 10.5 L Beckham % (Auto) 5.1 Eos % (Auto) 0.5 [...] PO BID Qty: 180 3RF Hold Instructions: [facility]; hold 02/12 carvedilol 6.25 mg tablet 6.25 mg PO BID Qty: 180 4RF Rx Instructions: must administer with a meal/food pantoprazole 40 mg tablet,delayed release (DR/EC) 40 mg PO DAILY Qty: 90 3RF (DME) pen needle, diabetic [Lite Touch Insulin Pen [place]] 31 gauge x 5/16 needle See Rx [...] MD [Primary Care Provider] - Disposition Disposition: Acute Care Hospital What to do if you have Problems For any increased pain, shortness of breath, bleeding, nausea or vomiting, chestpain, or any unexpected problems, contact your Primary Care Provider. Call [facility] ([phone]) or report to the closest Emergency Room. Call 911 if necessary. 08/04/222308 <Electronically signed by Sanju Hernandez MD> Cosigner Signature (if applicable): CC: Dr. Pat Bennett MD ~ Signed [facility] Work Phone: 1([phone]) 319-133903-16-2023 History and physical note Author Dr. Mg [facility] August 04, 2022 8:35pm Note Date/Time August 04, 2022 7:2 8pm [facility] Medical Records Department [address] [place] [address] H&P Exam - Hospitalist 08/04/221927 MR#: [id number] Acct: [id number] Name: ASIF DELA CRUZ Rep #:[id number] : 1955 67 From: Daljit Mg MD PCP: Dr. Pat Bennett MD Status:ADM IN Location: [place] [address] HPI - General General Date of Admission: 08/04/22 Date of Service: 08/04/22 Chief Complaint: Abdominal pain HPI Narrative ASIF DELA CRUZ, is a 67 F with [...] of has been having a viral illness. [facility] Medical History Acute kidney injury superimposed on chronic kidney disease 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 Atrial fibrillation [...] disease GFR 30-59 Home Medications blood-glucose meter ([employer] Verio Flex Start kit) #1 ea 11/11/20 [Rx Last Taken Unknown] blood sugar diagnostic ([employer] Verio test strips) #300 ea 11/12/20 [Rx Last Taken Unknown] lancets ([employer] UltraSoft Lancets) #300 ea 11/12/20 [Rx Last [...] gauge x 5/16 (Lite Touch Insulin Pen [place]) #100 ea 11/10/21 [Rx Last Taken Unknown] [...] 82.0 H, Lymph % (Auto) 10.5 L, Beckham % (Auto) 5.1, Eos % (Auto) 0.5, [...] off anticoagulation at this time. Admit to [facility] with telemetry. CAD status post stents Stable N.p.o.. Hold home antiplatelets. Hypertension Blood pressure is not within goal Home blood pressure medication held secondary to n.p.o. status. As needed hydralazine IV ordered. Trend blood pressure and adjust blood pressure medications. DVT Prophylaxis SCDs ordered Charges/Coding Visit Charges Inpatient E&M: 32923 Init Hosp L3 08/04/222034 <Electronically signed by Daljit Mg MD> Cosigner Signature (if applicable): CC: Dr. Daljit Mg MD; Dr. Pat Bennett MD~ Signed [facility] Work Phone: 1([phone]) 598-628206-01-2022 History of Present illness Narrative* Rashard is seen today in follow-up. She was at [facility] late October with 5-day history of [...] was in 2018. CT scan reviewed from [facility] revealed small bowel loops with fluid and air-filled segments without transition point and and normal colon without obvious diverticulitis. [facility] [address] Work Phone: 1([phone]) 809-483804-22-2022 History of Present illness Narrative* Pepito Joy RN - 09/10/2021 1:14 PM EDT Patient presented in office today for nurse only, EKG ordered by Dr. Zuñiga. EKG completed and routed to ordering provider. Patient voiced no needs. documented in this [id number] Instructions* Patient Instructions* Pepito Joy RN - 09/10/2021 8:14 AM EDT You can reach Dr Coleman's nurses, Pepito Joy RN and Sara Jackson RN, at [phone]. If unable to reach us please leave [...] listed below please call the office at [phone] and ask to speak to the schedulers to make an appointment. *If you made an -appointment prior to leaving the office today disregard this message. To cancel or reschedule your office visit or testing please call [phone]. If you need to cancel it must be 24 hours prior to that appt. Thank you. ....If you were seen in the [place] office today. If any testing was ordered a bookkeeping machine mechanic from [facility] group will call you to schedule your testing. If you do not hear from a bookkeeping machine mechanic after a couple of days please call the office at [phone] and ask to speak to a bookkeeping machine mechanic. documented in this [id number] Evaluation + Plan note* Assessment & Plan Note - Anton Zuñiga MD - 08/23/2021 2:15 PM EDT Associated Problem(s): Angina pectoris (HCC) Responsive to nitroglycerin at this time. On appropriate medical therapy. No resting discomfort. I cautioned her regarding seeking emergency medicine help if she has worsening symptoms or rest pain. [id number] Miscellaneous Notes* Assessment & Plan Note - Anton Zuñiga MD - 08/23/2021 2:15 PM EDTAssociated Problem(s): Angina pectoris (HCC) Responsive to nitroglycerin at this time. On appropriate medical therapy. No resting discomfort. I cautioned her regarding seeking emergency medicine help if she has worsening symptoms or rest pain. * Assessment & Plan Note - Anton Zuñiga MD - 08/23/2021 2:09 PM EDT [...] has agreed to proceed documented in this [id number] Evaluation + Plan note* Assessment & Plan Note - Anton Zuñiga MD - 08/23/2021 2:09 PM EDT [...] and benefits and has agreed to proceed [id number] History of Present illness Narrative* Anton Zuñiga MD - 08/23/2021 12:30 PM EDT Interventional Cardiology Clinic Consult Heart & Vascular [facility] 08/23/2021 Anton Zuñiga MD [address] [place] [address] [facility] [address] Patient: Asif Dela Cruz Date of : 1955 (66 [...] on file. Subjective History of Present Illness: Asif Dela Cruz is a 66 y.o. female History of coronary artery disease diagnosed after she presented with chest discomfort and elevated troponins. She was noted to have an LAD lesion which was stented. Due to recurrent symptoms mostly of exertional dyspnea she underwent another cardiac catheterization on 02/16/2021 at [facility]. At that time she was [...] LDLCALC, LDLDIRECT, TRIG, HDL documented in this [id number] Evaluation note* Diagnosis Onset Date Resolution Status [...] shoulder pain noneacti ve Yeast infection noneactive [facility] Work Phone: Evaluation note* Diagnosis Coronary artery disease involving wrangell coronary artery, unspecified whether angina present, unspecified whether wrangell or transplanted heart- Primary Angina pectoris (HCC) Other and unspecified angina pectoris Pre-operative cardiovascular examination [facility] Angina pectoris (HCC)- Primary Other and unspecified angina pectoris Coronary artery disease involving wrangell coronary artery, unspecified whether angina present, unspecified whether wrangell or transplanted heart [facility] Coronary artery disease involving wrangell coronary artery, unspecified whether angina present, unspecified whether wrangell or transplanted heart- Primary Angina pectoris (HCC) Other and unspecified angina pectoris Coronary artery disease involving wrangell coronary artery, unspecified whether angina present, unspecified whether wrangell or transplanted heart Angina pectoris (HCC) Other and unspecified angina pectoris Coronary artery disease involving wrangell coronary artery, unspecified whether angina present, unspecified whether wrangell or transplanted heart Angina pectoris (HCC) Other and unspecified angina pectoris [facility] Diagnosis Coronary artery disease involving wrangell coronary artery, unspecified whether angina present, unspecified whether wrangell or transplanted heart Angina pectoris (HCC) Other and unspecified angina pectoris CAD (coronary artery disease) Coronary atherosclerosis of unspecified type of vessel, wrangell or graft Coronary artery disease involving wrangell coronary artery, unspecified whether angina present, unspecified whether wrangell or transplanted heart Angina pectoris (HCC) Other and unspecified angina pectoris Pre-operative cardiovascular examination Coronary artery disease involving wrangell coronary artery, unspecified whether angina present, unspecified whether wrangell or transplanted heart Angina pectoris (HCC) Other and unspecified angina pectoris [facility] Diagnosis Onset Date Resolution Status Fibromyalgia [...] Dizziness acute CASTRO (dyspnea on exertion) ac [place] Fatigue acute Palpitations acute Atherosclerotic heart diseas e of 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 chronic Hyperlipidemia chronic Hypertension chronic Paroxysmal atrial fibrillation chronic Presence of stent in coronary artery August, [facility] Work Phone: Evaluation note* Diagnosis [...] Dizziness acute CASTRO (dyspnea on exertion) ac [place] Fatigue acute Palpitations acute Atherosclerotic heart diseas e of 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 chronic Hyperlipidemia chronic Hypertension chronic Paroxysmal atrial fibrillation chronic Presence of stent in coronary artery August, chronic [facility]ukocytosis [facility]* Diagnosis Onset [...] Dizziness acute CASTRO (dyspnea on exertion) ac [place] Fatigue acute Palpitations acute Atherosclerotic heart diseas e of 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 chronic Hyperlipidemia chronic Hypertension chronic Paroxysmal atrial fibrillation chronic Presence of stent in coronary artery August, chronic Gastroenteritis acute Leukocytosis acute [facility]: [facility] note* Diagnosis Onset [...] Dizziness acute CASTRO (dyspnea on exertion) ac [place] Fatigue acute Palpitations acute Atherosclerotic heart diseas e of 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 chronic Hyperlipidemia chronic Hypertension chronic Paroxysmal atrial fibrillation chronic Presence of stent in coronary artery August, chronic Gastroenteritis resolved Leukocytosis resolved Small bowel obstruction reso lved Acute kidney injury noneacti ve Abdominal pain noneactive [facility] Work Phone: Evaluation note* Diagnosis Onset Date Resolution Status Dizziness acute CASTRO (dyspnea on exertion) ac [place] Fatigue acute Palpitations acute Atherosclerotic heart diseas e of 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 chronic Hyperlipidemia chronic Hypertension chronic Paroxysmal atrial fibrillation chronic Presence of stent in coronary artery August, chronic Gastroenteritis resolved Leukocytosis resolved Small bowel obstruction reso lved Acute kidney injury noneacti ve Abdominal pain noneactive Upper respiratory infection noneactive [facility] Work Phone: Evaluation note* Diagnosis Onset Date Resolution Status Dizziness acute CASTRO (dyspnea on exertion) ac [place] Fatigue acute Palpitations acute Atherosclerotic heart diseas e of 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 chronic Hyperlipidemia chronic Paroxysmal atrial fibrillation chronic Presence of stent in coronary artery August, chronic Gastroenteritis resolved Leukocytosis resolved Small bowel obstruction reso lved Acute kidney injury noneacti ve Abdominal pain noneactive Upper respiratory infection noneactive Aortic stenosis acute Essential hypertension acute Atherosclerotic heart diseas e of 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 chronic Hyperlipidemia chronic Paroxysmal atrial fibrillation chronic Presence of stent in coronary artery August, chronic [facility] Work Phone: Evaluation note* Diagnosis Onset Date Resolution Status Gastroenteritis resolved Leukocytosis resolved Small bowel obstruction reso lved Acute kidney injury noneacti ve Abdominal pain noneactive Upper respiratory infection noneactive Aortic stenosis acute Essential hypertension acute Atherosclerotic heart diseas e of 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 chronic Hyperlipidemia chronic Paroxysmal atrial fibrillation chronic Presence of stent in coronary artery August, chronic CKD (chronic kidney disease) stage 3, GFR 30-59 ml/min chronic Hypothyroidism chronic Type [address] [facility] Work Phone: Evaluation note* Diagnosis Onset Date Resolution Status Upper respiratory infection noneactive Aortic stenosis acute Essential hypertension acute Atherosclerotic heart diseas e of 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 chronic Hyperlipidemia chronic Paroxysmal atrial fibrillation chronic Presence of stent in coronary artery August, chronic CKD (chronic kidney disease) stage 3, GFR 30-59 ml/min chronic Hypothyroidism chronic Type [address] [facility] Work Phone: Evaluation note* Diagnosis Onset Date Resolution Status Aortic stenosis acute Essential hypertension acute Atherosclerotic heart diseas e of 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 chronic Hyperlipidemia chronic Paroxysmal atrial fibrillation chronic Presence of stent in coronary artery August, chronic CKD (chronic kidney disease) stage 3, GFR 30-59 ml/min chronic Hypothyroidism chronic Type 2 diabetes mellitus chr onic Chest congestion acute Essential hypertension acute Otitis media acute Hypothyroidism chronic Type 2 diabetes mellitus chr onic Hearing loss associated with syndrome of both ears acute Impacted cerumen of right ear acute Otitis media acute Tinnitus of both ears acute [facility] Work Phone: Evaluation note* [...] Ileus acute Nausea vomiting and diarrhea acute [facility] Work Phone: Evaluation note* [...] Sialoadenitis of submandibular gland acute Abdominal pain [facility] Work Phone: Evaluation note* Diagnosis [...] acute Anemia acute Type 2 diabetes mellitus chr onic [facility] Work Phone: Evaluation note* [...] acute Anemia acute Type 2 diabetes mellitus chr onic Diabetes acute 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 Hyperlipidemia chronic Hypothyroidism chronic 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 GFR 30-59 chronic Acute bronchitis acute Mass of soft tissue of chest acute [facility] Work Phone: Evaluation note* Diagnosis Onset Date Resolution Status Diabetes acute 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 Hyperlipidemia chronic Hypothyroidism chronic 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 GFR 30-59 chronic Acute bronchitis acute Mass of soft tissue of chest acute [facility] Work Phone: Evaluation note* Diagnosis Onset Date Resolution Status Anemia acute 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 Atherosclerotic heart diseas e of 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 chronic Essential hypertension chron ic Hypothyroidism chronic Paroxysmal atrial fibrillation chronic 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 GFR 30-59 chronic Immunization due noneactive Smokes cigarettes noneactive Establishing care with new doctor, encounter for noneactive Bipolar disorder noneactive Chronic cough noneactive Anemia acute 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 Atherosclerotic heart diseas e of 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 chronic Essential [...] ic Hypothyroidism chronic Type [address] [facility] Work Phone: Evaluation note* Diagnosis Onset [...] Presence of stent in coronary artery August, [facility] Work Phone: Evaluation note* Diagnosis [...] Dizziness acute Atherosclerotic heart diseas e of 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 chronic Essential hypertension chron ic Hypothyroidism chronic Paroxysmal atrial fibrillation chronic 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 GFR 30-59 chronic Sleep concern noneactive Vaginal itching noneactive Bipolar disorder noneactive Dysuria noneactive Right shoulder pain noneacti ve Quit smoking noneactive [facility] Work Phone: Evaluation note* [...] Dizziness acute Atherosclerotic heart diseas e of 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 chronic Essential hypertension chron ic Hypothyroidism chronic Paroxysmal atrial fibrillation chronic 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 GFR 30-59 chronic Sleep concern noneactive Vaginal itching noneactive Bipolar disorder noneactive Dysuria noneactive Right shoulder pain noneacti ve Quit smoking noneactive [facility] Work Phone: Evaluation note* [...] Dizziness acute Atherosclerotic heart diseas e of 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 chronic Essential hypertension chron ic Hypothyroidism chronic Paroxysmal atrial fibrillation chronic 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 GFR 30-59 chronic Sleep concern noneactive Vaginal itching noneactive Bipolar disorder noneactive Dysuria noneactive Right shoulder pain noneacti ve Quit smoking noneactive Dizziness acute Fatigue acute Recurrent falls noneactive [facility] Work Phone: History and physical note Author Dr. Mg [facility] August 04, 2022 8:35pm Note Date/Time August 04, 2022 7:2 8pm [facility] Medical Records Department [address] [place] [address] H&P Exam - Hospitalist 08/04/221927 MR#: [id number] Acct: [id number] Name: ASIF DELA CRUZ Rep #:[id number] : 1955 67 From: Daljit Mg MD PCP: Dr. Pat Bennett MD Status:ADM IN Location: [facility] [id number] HPI - General General Date of Admission: 08/04/22 Date of Service: 08/04/22 Chief Complaint: Abdominal pain HPI Narrative ASIF DELA CRUZ, is a 67 F with [...] of has been having a viral illness. [facility] Medical History Acute kidney injury superimposed on chronic kidney disease 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 Atrial fibrillation [...] disease GFR 30-59 Home Medications blood-glucose meter ([employer] Verio Flex Start kit) #1 ea 11/11/20 [Rx Last Taken Unknown] blood sugar diagnostic ([employer] Research[employer] Verio test strips) #300 ea 11/12/20 [Rx Last Taken Unknown] lancets ([employer] UltraSoft Lancets) #300 ea 11/12/20 [Rx Last [...] gauge x 5/16 (Lite Touch Insulin Pen [place]) #100 ea 11/10/21 [Rx Last Taken Unknown] albuterol sulfate 90 mcg/actuation aerosol inhaler 2 puff inhalation Q6H PRN Wheezing #8.5 grams 08/01/22 [Rx Last Taken Unknown] losartan 50 mg [...] 82.0 H, Lymph % (Auto) 10.5 L, Beckham % (Auto) 5.1, Eos % (Auto) 0.5, [...] off anticoagulation at this time. Admit to [facility] with telemetry. CAD status post stents Stable N.p.o.. Hold home antiplatelets. Hypertension Blood pressure is not within goal Home blood pressure medication held secondary to n.p.o. status. As needed hydralazine IV ordered. Trend blood pressure and adjust blood pressure medications. DVT Prophylaxis SCDs ordered Charges/Coding Visit Charges Inpatient E&M: 52534 Init Hosp L3 08/04/222034 <Electronically signed by Daljit Mg MD> Cosigner Signature (if applicable): CC: Dr. Daljit Mg MD; Dr. Pat Bennett MD~ Signed [facility] Work Phone: History and physical note Author Carol Petty [facility] Note Date/Time February 05, 2025 5:30pm [facility] Medical Records Department [address] [place] [address] H&P Exam - Hospitalist 02/05/25 1703 MR#: [id number] Acct: [id number] Name: ASIF DELA CRUZ Rep #:[id number] : 1955 69 From: Carol Petty MD PCP: Dr. Denise Uribe MD Status:ADM IN Location: [facility] [id number]- [id number] HPI - General General Date of Admission: 02/05/25 Date of Service: 02/05/25 Chief Complaint: Cough, generalized weakness, loss of consciousness HPI Narrative ASIF DELA CRUZ, is a 69-year-old female history of gout, coronary artery disease, A-fib, diabetes, hypothyroidism, GERD, bipolar disorder who presented [facility] ED 02/05/2025 for evaluation of generalized weakness and syncope. Has a sister who was diagnosed with COVID infection approximately 12 days ago. Patient has had 3 days of fatigue, change in taste, weakness and cough with multiple falls due to her weakness. Does not think she hit her head with no loss of consciousness. Sister also noted that she was sitting in her recliner when she had a coughing fit and became unresponsive for several secondsand then was back to baseline. Patient has had poor p.o. intake and per EMS report she was hypotensive. In the ED temp 98.2, heart rate 77, blood pressure 85/57 with respiratory rate of 18 pulse ox 97% on room air. CBC with white blood cell count 9.3, hemoglobin 9.7 which seems to be baseline, CMP with potassium 3.2, bicarb 18 with a gap within normal range of 14, BUN 26 and creatinine 2.33. D-dimer less than 0.27. Troponin 35 and proBNP 194. Lactic acid 2.9. Brain CT with chronic changes, cervical spine CT degenerative changeswith no acute process, chest x-ray mild cardiac enlargement. UA unrevealing. Given patient's low blood pressure, poor p.o. intake with SALVATORE and increased lactic with generalized weakness hospitalist contacted for admission. Patient evaluated bedside. She reports for the past several days she has been very fatigued and weak all over and that her legs will just give out and she will fall when she is too weak to pick herself back up, she has had a cough with nasal congestion, headache, bilateral ear congestion, she has had diarrhea for 3days as well with nausea and has had very poor p.o. intake and has not been ableto consistently take her medicines. Had an episode of burning feeling yesterdayin her chest that did improve when she took a couple of her home medications andhas no similar symptoms now. Does not report shortness of breath at this time, said if she goes for long distances sometimes she will have shortness of breath but none well resting [facility] Medical History Recurrent falls Chronic anemia Acute kidney injury Bipolar disorder Umbilical hernia Hypothyroidism Hiatal hernia Gout Essential hypertension Atrial fibrillation Overweight (BMI 25.0-29.9) Polyneuropathy due to type 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 GFR 30-59 Fibromyalgia affecting multiple sites Shoulder pain, bilateral Hip pain, bilateral Tachybradycardia syndrome Near syncope Generalized OA 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 Abnormal stress test Hypertension Chronic pancreatic insufficiency Depression Home Medications ?Medication ?Instructions ?Recorded ?Last Taken ?Type lancets #300 ea 01/24/23 Unknown Rx nitroglycerin 0.4 mg sublingual 0.4 mg sublingual Q5-1 5M PRN chest 10/04/23 Unknown Rx tablet (Nitrostat) pain #25 tabs blood sugar diagnostic (OneTouch #300 ea 11/29/23 Unkn own Rx Verio test strips) blood-glucose meter (OneTouch #1 ea 11/29/23 Unknown R x Verio Flex Meter) pen needle, diabetic 32 gauge x #400 ea 02/27/24 Unkno wn Rx (BD Ultra-Fine Sophia Pen Needle) allopurinol 100 mg tablet 100 mg PO QHS gout #90 tabs 03/18/24 05/12/24 Rx nystatin 100,000 unit/gram topical 1 applic topical BI D PRN for 03/19/24 05/12/24 Rx powder ([facility]) infectious disease #30 GMS flash glucose sensor (FreeStyle #6 ea 03/21/24 Unknown Rx Marilyn 14 Day Sensor kit) handicap placard #1 ea 04/16/24 Unknown Rx carvedilol 6.25 mg tablet 6.25 mg PO BID blood pressur e #180 06/06/24 Unknown Rx tabs ticagrelor 90 mg tablet 90 mg PO BID #180 tabs 08/21 Unknown Rx atorvastatin 80 mg tablet 80 mg PO QHS Hyperlipidemia #100 09/03/24 Unknown Rx tabs colestipol 1 gram tablet 1 g PO DAILY cholesterol #10 0 tabs 09/03/24 Unknown Rx albuterol sulfate 90 mcg/actuation 2 puff inhalation Q 6H PRN Wheezing 09/05/24 Unknown Rx aerosol inhaler #8.5 grams apixaban 5 mg tablet (Eliquis) 5 mg PO BID blood thinn er #180 tabs 09/11/24 Unknown Rx icosapent ethyl 1 gram capsule 2 g (2 x 1 gram) PO BID #120 caps 10/07/24 Unknown Rx (Vascepa) losartan 50 mg tablet 50 mg PO DAILY blood pressur e #84 10/21/24 Unknown Rx TABLETS divalproex 125 mg capsule,delayed 125 mg PO BID bipola r #56 caps 11/12/24 Unknown Rx release sprinkle insulin glargine 100 unit/mL (3 50 unit (0.5 mL) subcu t QHS 12/16/24 Unknown Rx mL) subcutaneous pen (Lantus diabetes #45 mL Solostar U-100 Insulin) rabeprazole 20 mg tablet,delayed 20 mg PO DAILY for ac id reflux #30 12/17/24 Unknown Rx release TABLETS dulaglutide 0.75 mg/0.5 mL 0.75 mg (0.5 mL) subcut QWE EK #2 mL 01/06/25 Unknown Rx subcutaneous pen injector (Trulicity) dulaglutide 0.75 mg/0.5 mL 0.75 mg (0.5 mL) subcut QWE EK #2 mL 01/06/25 Unknown Rx subcutaneous pen injector (Trulicity) amitriptyline 50 mg tablet 50 mg PO QHS sleep #30 tabs 01/24/25 Unknown Rx levothyroxine 112 mcg tablet 112 mcg PO .monday to mon day for 01/24/25 Unknown Rx disorder of thyroid gland #25 TABLETS insulin lispro 100 unit/mL 25 unit subcut TID diabetes 02/05/25 Unknown History subcutaneous pen (Humalog KwikPen (U-100) Insulin) Allergy/AdvReac Type Severity Reaction Status Date / Time duloxetine (From Cymbalta) Allergy Itching Verified 02/05/25 13:00 Environmental Allergies: Allergy Cough Verified 02/05/25 13:00 Uncoded tomato Allergy Itching Verified 02/05/25 13:00 diphenhydramine (From AdvReac Severe other Verified 02/05/25 13:00 Benadryl) isosorbide AdvReac Intermediate Other Verified 02/05/25 13:00 adhesive tape (plastic tape) AdvReac Rash Verified 02/05/25 13:00 semaglutide (From Ozempic) AdvReac Diarrhea Verified 02/05/25 13:00 Family History Sister COPD (chronic obstructive pulmonary disease) Mother COPD (chronic obstructive pulmonary disease) Hypertension Alzheimer's dementia without behavioral disturbance Father Diabetes Hypertension Myocardial infarction Parkinsons disease Surgical History History of surgical procedure History of laparoscopic appendectomy History of total abdominal hysterectomy Hx of cholecystectomy Hx of shoulder surgery Presence of stent in coronary artery (~09/06/21) Social History household members: family current occupational status: retired 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 Smoking Status: Current every day smoker tobacco type: cigarettes Electronic Cigarette Use: not used alcohol intake: never substance use type: does not use caffeine: No what type of physical activity do you participate in: none do you feel safe at home: Yes ROS ROS Narrative General: Denies fever HENT: Does have headache and nasal congestion, sometimes sore throat when she has a lot of coughing EYES: Denies changes in vision Resp: No shortness of breath at this time, sometimes will on longer distances with ambulation, does have cough cardiac: Denies chest pain GI: Denies abdominal pain, has had diarrhea and nausea for the past several days : Denies changes in urination Extremity: Denies swelling MSK: Generalized weakness Neuro: Denies any numbness/tingling Heme: Denies any bleeding or bruising Skin: Denies rashes Psychiatric: Just feels generally unwell Vital Signs Vital Signs Vital Signs: 02/05/25 12:57 02/05/25 13:19 02/05/25 14:00 Temperature 98.2 F 98.4 F Temperature Source Oral Oral Pulse Rate 77 71 Respiratory Rate 18 19 H Respiratory Pattern Normal Blood Pressure 85/57 L 87/41 L Blood Pressure Mean 66 56 Pulse Ox 97 97 Oxygen Delivery Method Room Air Room Air 02/05/25 14:24 02/05/25 15:00 02/05/25 16:00 Temperature 98.1 F 97.8 F Temperature Source Oral Oral Pulse Rate 73 75 69 Respiratory Rate 18 14 16 Respiratory Pattern Normal Blood Pressure 84/58 L 100/58 L Blood Pressure Mean 66 72 Pulse Ox 97 98 Oxygen Delivery Method Room Air Room Air Weight Weight: 72.3 kg Body Mass Index (BMI) 32.1 Physical Exam Narrative General: Alert, oriented, appears to feel unwell HEENT: Normocephalic Eyes: Anicteric, normal conjunctiva, extraocular movements grossly intact Neck: Supple Respiratory: Normal respiratory effort Cardiovascular: Regular rate and rhythm GI: Soft, nontender, nondistended Extremities: No significant pitting edema Musculoskeletal: Moving all extremities Neuro: No overt focal neurological deficits Skin: No rashes appreciated Psych: Cooperative Results Lab / Micro Data 02/05/25 13:07 02/05/25 14:08 Labs: Laboratory Results - last 24 hr 02/05/25 13:07: WBC 9.3, RBC 3.55 L, Hgb 9.7 L, Hct 30.7 L, MCV 86.5, MCH 27.3, MCHC 31.6 L, RDW Std Deviation 58.0 H, RDW Coeff of Yaw 18.3 H, Plt Count 477 H,MPV 9.0, Immature Gran % (Auto) 0.600, Neut % (Auto) 65.9, Lymph % (Auto) 19.0, Beckham % (Auto) 10.7 H, Eos % (Auto) 3.3, Baso % (Auto) 0.5, Absolute Neuts (auto)6.1, Absolute Lymphs (auto) 1.77, Nucleated RBC % 0, Troponin T High Sens 35 H D, NT pro BNP II 194 02/05/25 14:08: Sodium 135, Potassium 3.2 L, Chloride 102, Carbon Dioxide 18.3 L, Anion Gap 14, BUN 26 H, Creatinine 2.33 H, Estim Creat Clear Calc 20.51 L, EstGFR (MDRD) Non-Af 22 L, BUN/Creatinine Ratio 11.0, Glucose 155 H, Calcium 6.8 L,Magnesium 1.7, Total Bilirubin 0.27, AST 17, ALT 17, Alkaline Phosphatase 84, Total Protein 5.2 L, Albumin 3.1 L, Globulin 2.1 L, Albumin/Globulin Ratio 1.4 02/05/25 14:35: PT 15.9 H, INR 1.2, APTT 28.8, D-Dimer Quant (PE/DVT) < 0.27 L, Lactic Acid 2.9 H* 02/05/25 15:03: POC Glucose 173 H 02/05/25 15:46: Urine Color Yellow, Urine Clarity Clear, Urine pH 5.0, Ur Specific Jefferson 1.020, Urine Protein 100 H, Urine Glucose (UA) 1000 H, Urine Ketones Negative, Urine Occult Blood Negative, Urine Nitrite Negative, Urine Bilirubin Negative, Urine Urobilinogen Normal, Ur Leukocyte Esterase Negative, Urine RBC 0 SEEN, Urine WBC 0-5 SEEN, Ur Squamous Epith Cells 0 SEEN, Urine Bacteria 0 SEEN, Urine Mucus 0 SEEN 02/05/25 16:07: Troponin T Hi Sens 2 Hr 32 H Micro: Microbiology 02/05/25 13:07 Mucosa - Nose SARS-CoV-2, Influenza & RSV (PCR) - Final Imaging Radiology Impression Brain CT 02/05/25 14:50 IMPRESSION: 1. No evidence of intracranial hemorrhage or acute ischemia. 2. Changes of chronic microvascular ischemia and volume loss. Reading Location: [facility] Cervical Spine CT 02/05/25 14:50 IMPRESSION: DEGENERATIVE CHANGES OF THE CERVICAL SPINE. NO EVIDENCE OF SIGNIFICANT OSSEOUS CENTRAL CANAL OR NEURAL FORAMINAL STENOSIS. [facility] Chest X-Ray 02/05/25 14:55 IMPRESSION: Mild cardiac enlargement. Reading Location: [facility] Assessment & Plan Assessment/Plan (1) Syncope: PLAN: Plan # Syncope -Brief loss of consciousness while coughing with return to baseline - May have been secondary to hypotension which was suspected secondary to dehydration given SALVATORE and patient having URI symptoms and poor p.o. intake -BP improving with IV fluids -Due to low blood pressure in the ED orthostats not obtained -CT head no acute process -Will monitor on telemetry -Given she did have full loss of consciousness and has a slight elevation in troponin at 35 will also obtain echocardiogram though likely lower yield # Generalized weakness and diarrhea and nausea -Suspect patient has underlying viral illness given sick contacts, weakness, cough and fatigue with diarrhea and nausea and nasal congestion -Patient has had poor p.o. intake -Chest x-ray with no pneumonia -Will check respiratory panel -Stool studies -IV fluids -Supportive care -Did have recent TSH of 4.4 so will not repeat and will continue home Synthroid -Slightly low calcium and magnesium on the lower limit of normal, will replace both # SALVATORE -Creatinine 2.33 up from 1.18 2-1/2 months ago -Patient does admit to poor p.o. intake in setting of URI-like symptoms in addition to diarrhea and nausea -IV fluids -If not improving tomorrow can consider further workup though suspect this will improve with IV fluid #Hypokalemia -Replace -Repeat in the AM #Hypertension - Patient hypotensive in the ED so we will hold losartan and hold Coreg #Hx of CAD -w/ previous stenting -Continue home Eliquis and Brilinta, holding home ARB and beta-leo due to hypotension #GERD -Continue PPI #Type 2 diabetes mellitus -Glucose checks and sliding scale insulin -Will continue long-acting insulin though at lower dose given patient's poor p.o. intake and can uptitrate as tolerated #Hypothyroidism -Continue Synthroid #Gout -Continue home allopurinol #Paroxysmal Atrial Fibrillation -Rate control: Patient takes carvedilol at baseline however given hypotension this be held -Anticoagulation: Continue Eliquis #Hx bipolar disorder -On home Depakote, will continue #DVT ppx: Not indicated already on full dose anticoagulation Carol Petty MD Charges/Coding Visit Charges Inpatient E&M: 99069 Init Hosp L2 02/05/25 2783 <Electronically signed by Carol Petty MD> Cosigner Signature (if applicable): CC: Dr. Denise Uribe MD; Dr. Carol Petty MD~ Signed [facility] Work Phone: History of Present illness NarrativeChris is seen today in follow-up. She is [...] to be unchanged by her current bowel regimen.[facility] Work Phone: [facility] Work Phone: [facility] Work Phone: [facility] Work Phone: Hospital Discharge instructions Additional Instructions Please make sure you are taking your pantoprazole daily. 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 Advance Directives and Living Will Documents on File Type Date Recorded 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 Advance Directives and Living Will Advance Directive Response Recorded Date/ Time Advance Directives No January 9:27am Living Will No July 03 4:19pm Power of Director Of Search Engine Optimization No July 03, 2021 4:19pm Advance Directive Response Recorded Date/ Time Advance Directives No January 9:27am Living Will No November 07, 2021 4:38pm Power of Director Of Search Engine Optimization No November 07 4:38pm Advance Directive Response Recorded Date/ Time Name of Medical Power of Director Of Search Engine Optimization Lisa Lawson November 07, 2021 9:38pm Advance Directives No January 9:27am Living Will Yes November 07, 2021 9:38pm Power of Director Of Search Engine Optimization Yes November 07 9:38pm Advance Directive Response Recorded Date/ Time Name of Medical Power of Director Of Search Engine Optimization Lisa Renny November 07, 2021 9:38pm Advance Directives No January 9:27am Living Will No November 16, 2021 11:13am Power of Director Of Search Engine Optimization No November 16 11:13am Advance Directive Response Recorded Date/ Time Advance Directives No January 8:27am Living Will No March 28 3:42pm Power of Director Of Search Engine Optimization No March 28, 2022 3:42pm Advance Directive Response Recorded Date/ Time Advance Directives No January 9:27am Living Will No August 04, 2022 4:57pm Power of Director Of Search Engine Optimization No August 04 4:57pm Advance Directive Response Recorded Date/ Time Advance Directives No January 9:27am Living Will No August 04, 2022 9:10pm Power of Director Of Search Engine Optimization No August 04 9:10pm Advance Directive Response Recorded Date/ Time Advance Directives No January 9:27am Living Will No September 15, 2022 3:47pm Power of Director Of Search Engine Optimization No September 15 3:47pm Advance Directive Response Recorded Date/ Time Advance Directives No January 8:27am Living Will No September 15, 2022 2:47pm Power of Director Of Search Engine Optimization No September 15 2:47pm Advance Directive Response Recorded Date/ Time Advance Directives No January 9:27am Living Will No September 11, 2023 10:37am Power of Director Of Search Engine Optimization No September 10 10:37am Advance Directive Response Recorded Date/ Time Living Will No January 28 024 2:06pm Power of Director Of Search Engine Optimization No January 29, 2024 2:06pm Living Will No May 13 024 11:16pm Power of Director Of Search Engine Optimization No May 13, 2024 11:16pm Living Will No June 16 9:40pm Power of Director Of Search Engine Optimization No June 16, 2024 9:40pm Advance Directives No January 9:27am Advance Directive Response Recorded Date/ Time Living Will No January 28 024 2:06pm Do you have a Healthcare Power of Director Of Search Engine Optimization? No January 29, 2024 2:06pm Living Will No May 13 11:16pm Do you have a Healthcare Power of Director Of Search Engine Optimization? No May 13, 2024 11:16pm Living Will No June 16 9:40pm Do you have a Healthcare Power of Director Of Search Engine Optimization? No June 16, 2024 9:40pm Advance Directives No January 9:27am Advance Directive Response Recorded Date/ Time Living Will No May 13 11:16pm Do you have a Healthcare Power of Director Of Search Engine Optimization? No May 13, 2024 11:16pm Living Will No June 16 9:40pm Do you have a Healthcare Power of Director Of Search Engine Optimization? No June 16, 2024 9:40pm Do you have a Healthcare Power of Director Of Search Engine Optimization? No September 17, 2024 7:01pm Advance Directives No January 9:27am Advance Directive Response Recorded Date/ Time Do you have a Healthcare Power of Director Of Search Engine Optimization? No November 15, 2024 6:44pm Do you have a Healthcare Power of Director Of Search Engine Optimization? No September 17, 2024 11:13pm Advance Directives No January 9:27am Advance Directive Response Recorded Date/ Time Do you have a Healthcare Power of Director Of Search Engine Optimization? No November 15, 2024 6:44pm Do you have a Healthcare Power of Director Of Search Engine Optimization? No February 05, 2025 1:18pm Advance Directives No January 9:27am Reason for [...] type Fatigue, unspecified type 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 FDC current use of non-steroidal anti-inflammatories (NSAID) Hypertension, unspecified type Gastroesophageal reflux disease, esophagitis presence not specified Hypothyroidism, unspecified type Type II diabetes mellitus with neurological manifestations Lower abdominal pain Procedures EMG & NERVE CONDUCTION Bassem Ding Jr., DO [address] [place] [id number] Status Reason Specialty Diagnoses / Procedures Re ferred By Contact Referred To Contact Closed Ultrasound Diagnoses Acute renal failure, unspecified acute renal failure type Procedures US RENAL RETROPERITONEAL Vladimir Landon, DO [address] [place] [address] [facility] [address] [place] [phone] Status Reason Specialty Diagnoses / Procedures Referre d By Contact Referred To Contact Closed Ultrasound Diagnoses Acute renal failure, unspecified acute renal failure type Procedures US PELVIS LIMITED Vladimir Landon, DO [address] [place] [address] [facility] [address] [place] [phone] Status Reason Specialty Diagnoses / Procedures Referred By Contact Referred To Contact New Request Physical Therapy Diagnoses Chronic right shoulder pain Hugo Murray, DO [address] [place] [id number] Status Reason Specialty Diagnoses / Procedures Referre d By Contact Referred To Contact Closed Ultrasound Diagnoses Intermittent claudication Pre-operative clearance Atherosclerosis of wrangell coronary artery of wrangell heart, angina presence unspecified Procedures US DOPPLER ARTERIAL LEGS BILATERAL Sherwin Cali II, MD [address] [place], [place] [phone] [facility] [address] [place], [place] [phone] Status Reason Specialty Diagnoses / Procedures Re ferred By Contact Referred To Contact New Request Procedures INPATIENT ADMISSION NOTIFICATION Robles Kapadia MD [address] [place] [address] Status Reason Specialty Diagnoses / Procedures Referred By Contact Referred To Contact New Request Procedures ECG Rashard Gallegos MD [address] [place], [place] [phone] Status Reason Specialty Diagnoses / Procedures Referred By Contact Referred To Contact New Request Physical Therapy Diagnoses Left hip pain Hugo Murray, DO [address] [place], [place] [phone] Status Reason Specialty Diagnoses / Procedures Re [...] both shoulders Bassem Ding Jr., DO [address] [place] [phone] Bravo Cote MD [address] [place] [phone] Status Reason Specialty Diagnoses / Procedures Re [...] both shoulders Bassem Ding Jr., DO [address] [place] [phone] Hugo Murray, DO [address] [place] [phone] Status Reason Specialty Diagnoses / Procedures Re [...] shoulders Timur Naranjo, Bassem Mix, DO [address] [place] [phone] Servando Jean MD [address] [place] [address] Specialty Diagnoses / Procedures Referred By Contac t Referred To Contact Cardiology Diagnoses Coronary artery disease involving wrangell coronary artery, unspecified whether angina present, unspecified whether wrangell or transplanted heart Angina pectoris (HCC) Pre-operative cardiovascular examination Procedures ECG 12 Lead Yogesh, Anton Chan MD [address] [place] [address] Referral ID Status Reason Start Date Expiration Date V isits Requested Visits Authorized [id number] Authorized 08/27/2021 08/27/2022 1 1 Assessments Diagnosis [...] fibromyalgia Personal history 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 * Vomiting (Adult) (Taiwanese) * Dehydration (Taiwanese) in this encounter* Instructions* Jennifer Peres RN - 01/30/2020 Asif Dela Cruz 01/30/2020 [facility] M[facility]D. HOME [...] free to contact your physician by calling [phone] ([phone]). If it is after hours you can contact the customer operations specialist doctor by calling [facility] at [phone]. Prescription refills will only be done during [...] next business day for an appointment at [phone] ([phone]) documented in this encounter* Discharge Instr - [...] be sent through Care Everywhere. * Fatigue (Taiwanese) * Dizziness (Taiwanese) documented in this encounter History of Present [...] for dysphoric mood. documented in this encounter* Hugo Murray DO - 04/15/2019 1:45 PM EST Chief Complaint Patient presents with Left Hip - Follow-up Right Shoulder - Pain HPI Pain Radiation To: down arm Pain Duration: approx. 2 yrs. Pain Frequency: frequent Pain Quality: sharp Factors That Aggravate Pain: activity(lifting) Factors That Relieve Pain: rest Dictation on: 04/15/2019 3:52 PM by: HUGO MURRAY [[email or web address]] EXAM SHOULDER EXAM RIGHT LEFT [...] 5/5 Neers: posRt Bailey: pos-Rt Apprehension: NEG Wolf Run's: NEG Speed's: NEG Yergason's: NEG Crossover: NEG [...] this note may have been created with Up[employer] or other software which leads to grammatical and typographical errors which are not truck sales representative of the intent with my spoken words. Clinical assistant finance manager/AT/MA was acting as a scribe today for this note. I have performed all essentialcomponents of the history, and physical exam. I have confirmed the diagnosis and developed a plan of care at this visit. I have reviewed the note following the visit and have made edits as appropriate to my evaluation and plan of care. Hugo Murray DO * Glasford, Seth - 04/15/2019 1:45 PM EST Associated Order(s): [...] 5/5 Neers: posRt Bailey: pos-Rt Apprehension: NEG Wolf Run's: NEG Speed's: NEG Yergason's: NEG Crossover: NEG [...] this note may have been created with [employer] or other software which leads to grammatical and typographical errors which are not truck sales representative of the intent with my [...] for dysphoric mood. documented in this encounter* Hugo Murray DO - 12/24/2019 1:30 PM EDT Chief Complaint Patient presents with Right Shoulder - Pain, Follow-up HPI Pain Radiation To: down arm to fingers Pain Duration: 2-3 yrs. Pain Frequency: constant Pain Quality: aching, sharp, dull Factors That Aggravate Pain: activity Factors That Relieve Pain: (nothing) Asif is here in followup and last seen [...] modification and medications. Re-evaluate in 1 month. ([id number]) EXAM SHOULDER EXAM RIGHT LEFT Inspection No [...] pos rt Bailey: pos rt Apprehension: NEG Wolf Run's: NEG Speed's: NEG Yergason's: NEG Crossover: NEG [...] A total of 8+ minutes was spent [id number] with the patient ensuring understanding of this exercise program. *Portions of this note may have been created with Up[employer]sel or other software which leads to grammatical and typographical errors which are not truck sales representative of the intent with my spoken words. Clinical assistant finance manager/AT/MA was acting as a scribe today for this note. I have performed all essentialcomponents of the history, and physical exam. I have confirmed the diagnosis and developed a plan of care at this visit. I have reviewed the note following the visit and have made edits as appropriate to my evaluation and plan of care. Hugo Murray DO * Seth Solorzano - 12/24/2019 [...] pos rt Bailey: pos rt Apprehension: NEG Wolf Run's: NEG Speed's: NEG Yergason's: NEG Crossover: NEG [...] A total of 8+ minutes was spent sajx-so-sowx with the patient ensuring understanding of this [...] this note may have been created with [employer] or other software which leads to grammatical and typographical errors which are not truck sales representative of the intent with my [...] RN - 01/28/2020 7:31 AM EDT CF Asif Dela Cruz Female, 64 y.o., 1955 (M) PCP: Yamila Hayden MD Primary Cvg: Medicare Uhc Hmo/Medicare Uhc Hmo Next Appt With Orthopaedics 01/28/2020 at 2:45 PM RE: labs Received: 4 days ago Message Contents JESUS Rodriges RN Thanks. Luz, may ask about this one. I already questioned the EKG. Previous Messages ----- Message ----- From: Daina Cortez RN Sent: 01/24/2020 1:01 PM EDT To: [...] RN - 01/24/2020 2:25 PM EDT CF Asif Dela Cruz Female, 64 y.o., 1955 (M) [...] Heath Ford DO Subject: FW: ekg/clearance Dr oFrd, Please see my note to Dr Cali and his reply. The patient was already cleared in 11/28/2019 with him. In looking at he most recent EKG done at [facility] do you feel she needs [...] the anesthesiologist would both say that the oracle application architect said that it was okay, and thereby [...] so we did an EKG at her [facility] appointment. Would you please review the EKG and let us know if she is still cleared for surgery? Thank you so much! documented in this encounter* Marzena Beltran PA-C - 02/11/2020 2:40 PM EDT 02/11/20 HPI: Asif Dela Cruz presents to the office today [...] follow and assist in discharge planning. 10/16/19 0945 Information Source Information Source patient Contact Information Social Work Contact Name YAO Patrick Receiving Associate's Living Environment Lives With parent(s) (Lives with [...] Referral Source physician documented in this encounter* Hugo Murray, DO - 03/15/2019 12:45 PM EDT Chief Complaint Patient presents with Left Hip - Pain HPI Pain Radiation To: down leg Pain Duration: 1 1/2 yrs. Pain Frequency: frequent Pain Quality: aching, sharp Factors That Aggravate Pain: activity Factors That Relieve Pain: (nothing) Dictation on: 03/15/2019 1:32 PM by: HUGO MURRAY [[id number]] EXAM Bilateral hips examined today. [...] this note may have been created with UpCounsel or other software which leads to grammatical and typographical errors which are not truck sales representative of the intent with my spoken words. Clinical assistant finance manager/AT/EMILY was acting as a scribe today for this note. I have performed all essentialcomponents of the history, and physical exam. I have confirmed the diagnosis and developed a plan of care at this visit. I have reviewed the note following the visit and have made edits as appropriate to my evaluation and plan of care. Hugo Murray DO * Mark Ren, ATC - [...] this note may have been created with Up[employer]sel or other software which leads to grammatical and typographical errors which are not truck sales representative of the intent with my [...] She displays a negative Romberg sign. 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 Hyperlipidemia Hypertension Paroxysmal atrial fibrillation Presence of stent in coronary artery Leukocytosis Small bowel obstruction Chief Complaint Follow up 4 M FU S/P [facility] E-ORDER EORDERS Dizziness (cardiology) PALPITATIONS [...] exertion) Fatigue Palpitations 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 Hyperlipidemia Hypertension Paroxysmal atrial fibrillation Presence of stent in coronary artery Gastroenteritis Leukocytosis Small bowel obstruction Chief Complaint Follow up 4 M FU S/P [facility] E-ORDER EORDERS Dizziness (cardiology) PALPITATIONS [...] exertion) Fatigue Palpitations 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 Hyperlipidemia Hypertension Paroxysmal atrial fibrillation Presence of stent in coronary artery Gastroenteritis Leukocytosis Small bowel obstruction Acute kidney injury Abdominal pain Chief Complaint S/P PTCA [facility] E-ORDER EORDERS Dizziness (cardiology) PALPITATIONS DIZZINESS SBO CHEST PAIN SBO SBO SBO SBO SBO [facility]BO [facility] - K[facility] ABD PAIN,NAUSEA UPPER RESPITORY INFECTION Reason for Visit Dizziness CASTRO (dyspnea on exertion) Fatigue Palpitations 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 Hyperlipidemia Hypertension Paroxysmal atrial fibrillation Presence of stent in coronary artery Gastroenteritis Leukocytosis Small bowel obstruction Acute kidney injury Abdominal pain Upper respiratory infection Chief Complaint S/P PTCA [facility] E-ORDER EORDERS Dizziness (cardiology) PALPITATIONS DIZZINESS SBO CHEST PAIN SBO SBO SBO SBO SBO SBO [facility] FU - KILO ABD PAIN,NAUSEA UPPER RESPITORY INFECTION 10-12 MO F/U EORDER Reason for Visit Dizziness CASTRO (dyspnea on exertion) Fatigue Palpitations 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 Hyperlipidemia Paroxysmal atrial fibrillation Presence of stent in coronary artery Gastroenteritis Leukocytosis Small bowel obstruction Acute kidney injury Abdominal pain Upper respiratory infection Aortic stenosis Essential hypertension 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 Hyperlipidemia Paroxysmal atrial fibrillation Presence of stent in coronary artery Chief Complaint S/P PTCA [facility] E-ORDER EORDERS Dizziness (cardiology) PALPITATIONS DIZZINESS SBO CHEST PAIN SBO SBO SBO SBO SBO SBO [facility] FU - KILO ABD PAIN,NAUSEA UPPER RESPITORY INFECTION 10-12 MO F/U EORDER MURMUR Reason for Visit Dizziness CASTRO (dyspnea on exertion) Fatigue Palpitations 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 Hyperlipidemia Paroxysmal atrial fibrillation Presence of stent in coronary artery Gastroenteritis Leukocytosis Small bowel obstruction Acute kidney injury Abdominal pain Upper respiratory infection Aortic stenosis Essential hypertension 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 Hyperlipidemia Paroxysmal [...] stenosis Essential hypertension 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 Hyperlipidemia Paroxysmal atrial fibrillation Presence of stent in coronary artery CKD (chronic kidney disease) stage 3, GFR 30-59 ml/min Hypothyroidism Type 2 diabetes mellitus Chief Complaint UPPER RESPITORY INFE CTION 10-12 MO F/U EORDER MURMUR 6 M FU EORDERS COLD SX Reason for Visit Upper respiratory in fection Aortic stenosis Essential hypertension 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 Hyperlipidemia Paroxysmal atrial fibrillation Presence of stent in coronary artery CKD (chronic kidney disease) stage 3, GFR 30-59 ml/min Hypothyroidism Type 2 diabetes mellitus Chief Complaint 10-12 MO F/U EORDER MURMUR 6 M FU EORDERS COLD SX [facility] ER FU 1 W FU Reason for Visit Aortic stenosis Essential hypertension 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 Hyperlipidemia Paroxysmal [...] Chief Complaint 1 W FU EYE PAIN ILEUS,PANCREATITS,ASLVATORE Reason for Visit Hearing loss associa aaron [...] ILEUS,PANCREATITS,SALVATORE ILEUS,PANCREATITS,SALVATORE ILEUS,PANCREATITS,SALVATORE ILEUS,PANCREATITS,SALVATORE ILEUS,PANCREATITS,SALVATORE ILEUS,PANCREATITS,SALVATORE ILEUS,PANCREATITS,SALVATORE [facility] FU - KEEP 1HR Reason for [...] ILEUS,PANCREATITS,SALVATORE ILEUS,PANCREATITS,SALVATORE ILEUS,PANCREATITS,SALVATORE ILEUS,PANCREATITS,SALVATORE ILEUS,PANCREATITS,SALVATORE ILEUS,PANCREATITS,SALVATORE ILEUS,PANCREATITS,SALVATORE [facility] FU - KEEP 1HR allergic rxn Reason for Visit Abdominal pain Acute dehydration Acute kidney injury Acute pancreatitis Anemia Chronic anticoagulation Diarrhea History of chronic atrial fibrillation History of diabetes mellitus Nausea vomiting and diarrhea Hypocalcemia Hypokalemia Hypomagnesemia Ileus Sialoadenitis of submandibular gland Abdominal pain Acute kidney injury Anemia Type 2 diabetes mellitus Chief Complaint ILEUS,PANCREATITS,AK I ILEUS,PANCREATITS,SALVATORE ILEUS,PANCREATITS,SALVATORE ILEUS,PANCREATITS,SALVATORE ILEUS,PANCREATITS,SALVATORE ILEUS,PANCREATITS,SALVATORE WC FU - KEEP 1HR allergic rxn 6 [...] 2 diabetes mellitus 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 Essential hypertension Hypothyroidism Paroxysmal atrial fibrillation 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 GFR 30-59 Immunization due Smokes cigarettes Establishing care with new doctor, encounter for Bipolar disorder Chronic cough Anemia Polyneuropathy due to type 2 diabetes mellitus 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 Essential hypertension [...] coronary artery Dizziness 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 Essential hypertension [...] coronary artery Dizziness 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 Essential hypertension [...] coronary artery Dizziness 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 Essential hypertension [...] FALLS, SALVATORE June 18, 2024 1 1:58am [facility] FU July 24, 2024 11:1 9am [...] 8:01pm Paralytic ileus of small intestine Decem will 2023 8:01pm Thrombocytosis May 13, 2024 8:01pm [...] Hospital discharge follow-up July 24, 2024 11:19am Zrawc-ja-vcblorm kidney injury July 11:19am Paralytic ileus July [...] FALLS, SALVATORE June 18, 2024 1 1:58am [facility] July 24, 2024 11:1 9am 125MG FERRLECIT [...] FALLS, SALVATORE June 18, 2024 1 1:58am [facility] July 24, 2024 11:1 9am 125MG FERRLECIT [...] 8:01pm Paralytic ileus of small intestine Decem will 2023 8:01pm Thrombocytosis May 13, 2024 8:01pm [...] 2024 11:1 9am GERD (gastroesophageal reflux disease) [facility] 2024 11:19am Debility July 24, 2024 11:1 9am Hospital discharge follow-up July 24, 2024 11:19am Whywu-xj-pconars kidney injury July 11:19am Paralytic ileus July 24, 2024 11:1 9am Lactic acidosis September 17, 2024 10: 19pm Chief Complaint Admit Date [facility] FU July 24, 2024 11:1 9am 125MG FERRLECIT August 07, 2024 12: 43pm PSBO, HYPERKALEMIA, HYPONATREMIA, SALVATORE Ap ril 2024 10:19pm PSBO, HYPERKALEMIA, HYPONATREMIA, SALVATORE Ap ril 2024 7:32am PSBO, HYPERKALEMIA, HYPONATREMIA, SALVATORE Ap ril 2024 7:41am PSBO, HYPERKALEMIA, HYPONATREMIA, SALVATORE Ma y 2024 9:42am PSBO, HYPERKALEMIA, HYPONATREMIA, SALVATORE Ma y 2024 10:36am WEAKNESS November 15, 2024 6:16 pm Reason for Visit Admit Date Anemia July 24, 2024 11:1 9am Dehydration July 24, 2024 11:1 9am Dizziness July 24, 2024 11:1 9am Hyponatremia July 24, 2024 11:1 9am 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 GFR 30-59 July 24, 2024 11:19am Bipolar disorder July 24, 2024 11:1 9am GERD (gastroesophageal reflux disease) [facility] 2024 11:19am Debility July 24, 2024 11:1 9am Hospital discharge follow-up July 24, 2024 11:19am Zveav-ld-suaoleg kidney injury July 11:19am Paralytic ileus July 24, 2024 11:1 9am Lactic acidosis September 17, 2024 10: 19pm Partial small bowel obstruction September 172024 10:19pm Diarrhea September 17, 2024 10: 19pm Chief Complaint Admit Date PSBO, HYPERKALEMIA, HYPONATREMIA, SALVATORE Ap ril 2024 10:19pm PSBO, HYPERKALEMIA, HYPONATREMIA, SALVATORE Ap ril 2024 7:32am PSBO, HYPERKALEMIA, HYPONATREMIA, SALVATORE Ap ril 2024 7:41am PSBO, HYPERKALEMIA, HYPONATREMIA, SALVATORE Ma y 2024 9:42am PSBO, HYPERKALEMIA, HYPONATREMIA, SALVATORE Ma y 2024 10:36am WEAKNESS November 15, 2024 6:16 pm 10 M KUSH, CX 06/19, RS 10/23January 06, 2025 11:14am Reason for Visit Admit Date Lactic acidosis September 17, 2024 10: 19pm Partial small bowel obstruction September 172024 10:19pm Diarrhea September 17, 2024 10: 19pm Chief Complaint Admit Date PSBO, HYPERKALEMIA, HYPONATREMIA, SALVATORE Ap ril 2024 10:19pm PSBO, HYPERKALEMIA, HYPONATREMIA, SALVATORE Ap ril 2024 7:32am PSBO, HYPERKALEMIA, HYPONATREMIA, SALVATORE Ap ril 2024 7:41am PSBO, HYPERKALEMIA, HYPONATREMIA, SALVATORE Ma y 2024 9:42am PSBO, HYPERKALEMIA, HYPONATREMIA, SALVATORE Ma y 2024 10:36am WEAKNESS November 15, 2024 6:16 pm 10 M KUSH, CX 06/19, RS 10/23January 06, 2025 11:14am E ORDERS January 06, 2025 12 :07pm Reason for Visit Admit Date Lactic acidosis September 17, 2024 10: 19pm Partial small bowel obstruction September 172024 10:19pm Diarrhea September 17, 2024 10: 19pm CKD (chronic kidney disease) stage 3, GF R 30-59 ml/min January 06, 2025 11:14am Diabetes January 06, 2025 11 :14am Elevated cholesterol with high triglycer ides January 06, 2025 11:14am Essential hypertension January 06, 2025 11:14am Hypothyroidism January 06, 2025 11 :14am Obesity January 06, 2025 11 :14am Vitamin D insufficiency January 06 11:14am Chief Complaint Admit Date WEAKNESS November 15, 2024 6:16 pm 10 M FU, CX 06/19, RS 10/23January 06, 2025 11:14am E ORDERS January 06, 2025 12 :07pm SYNCOPE SALVATORE URI February 05, 2025 5:03pm Reason for Visit Admit Date CKD (chronic kidney disease) stage 3, GF R 30-59 ml/min January 06, 2025 11:14am Diabetes January 06, 2025 11 :14am Elevated cholesterol with high triglycer ides January 06, 2025 11:14am Essential hypertension January 06, 2025 11:14am Hypothyroidism January 06, 2025 11 :14am Obesity January 06, 2025 11 :14am Vitamin D insufficiency January 06 11:14am Syncope February 05, 2025 5:03pm Chief Complaint FUV in office today from ER for abdominal pain and diarrhea x 4 days, nausea, occasional black stools.FUV in office today for constipation, intermittent diarrhea, nausea. Patient states her solid BM are very hard and are painful, bright red blood on the tissue, patient states stools are dark. Patientstates her Legal Biller wated her to ask about Ozempic with her bowel issues. Additional Source Comments INFORMATION SOURCE (unrecogn ized section and content) DATE CREATED AUTHOR 11/15/2017 [facility] DATE CREATED AUTHOR AUTHOR'S ORGANIZ ATION 11/15/2017 [facility] DATE CREATED AUTHOR AUTHOR'S ORGANIZ ATION 03/30/2019 [facility] DATE CREATED AUTHOR AUTHOR'S ORGANIZ ATION 08/09/2019 [facility] DATE CREATED AUTHOR AUTHOR'S ORGANIZ ATION 01/31/[facility] DATE CREATED AUTHOR AUTHOR'S ORGANIZ ATION [facility] DATE CREATED AUTHOR AUTHOR'S ORGANIZ ATION 09/20/2021 [facility] DATE CREATED AUTHOR AUTHOR'S ORGANIZ ATION 09/24/2021 [facility] DATE CREATED AUTHOR AUTHOR'S ORGANIZ ATION 09/26/2021 [facility] DATE CREATED AUTHOR AUTHOR'S ORGANIZ ATION 02/21/2022 [employer] DATE CREATED AUTHOR AUTHOR'S ORGANIZ ATION 03/26/2022 [facility] DATE CREATED AUTHOR AUTHOR'S ORGANIZ ATION 08/21/2022 [facility] DATE CREATED AUTHOR AUTHOR'S ORGANIZ ATION 01/10/2025 [facility] Reason for Visit (unrecogniz ed section and [...] type Fatigue, unspecified type 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 FDC current use of non-steroidal anti-inflammatories (NSAID) Hypertension, unspecified type Gastroesophageal reflux disease, esophagitis presence not specified Hypothyroidism, unspecified type Type II diabetes mellitus with neurological manifestations Lower abdominal pain Procedures EMG & NERVE CONDUCTION Timur Naranjo, Bassem Mix, DO [address] [place] [address] Reason Comments Labs Only Reason Comments Itching [...] US RENAL RETROPERITONEAL Vladimir Landon DO [address] [place] [address] [facility] [address] [place] [phone] Status Reason Specialty Diagnoses / Procedures Referre d By Contact Referred To Contact Closed Ultrasound Diagnoses Acute renal failure, unspecified acute renal failure type Procedures US PELVIS LIMITED DipeshVladimir [address] [place] [id number] [facility] [address] [place] [phone] Reason Comments Hand Pain B hand numbness [...] both shoulders Timur Naranjo, Bassem Mix DO [address] [place] [phone] Bravo Cote MD [address] [place] [phone] Reason Comments Follow-up Pain Reason Comments Follow-up Pre Op - Right CTS - Sx 06/06/19 Status Reason Specialty Diagnoses / Procedures Referred By Contact Referred To Contact Closed Cardiovascular Medicine Diagnoses Pre-operative clearance Atherosclerosis of wrangell coronary artery of wrangell heart, angina presence unspecified Old myocardial infarction Mitral valve prolapse Abnormal electrocardiogram Precordial pain Procedures ECHOCARDIOGRAM NE ECHO HEART XTHORACIC,COMPLETE W DOPPLER Sherwin Cali II, MD [address] [place] [phone] [facility] [address] [place] [phone] Status Reason Specialty Diagnoses / Procedures Referred By Contact Referred To Contact Closed Cardiovascular Medicine Diagnoses Abnormal electrocardiogram Atrial premature contractions Palpitations Procedures HOLTER MONITOR - 24 HOUR Sherwin Cali II, MD [address] [place] [phone] [facility] [address] [place] [phone] Status Reason Specialty Diagnoses / Procedures Referre d By Contact Referred To Contact Closed Ultrasound Diagnoses Intermittent claudication Pre-operative clearance Atherosclerosis of wrangell coronary artery of wrangell heart, angina presence unspecified Procedures US DOPPLER ARTERIAL LEGS BILATERAL Sherwin Cali II, MD [address] [place] [phone] [facility] [address] [place] [phone] Status Reason Specialty Diagnoses / Procedures Re ferred By Contact Referred To Contact Closed Cardiovascular Medicine Diagnoses Pre-operative clearance Atherosclerosis of wrangell coronary artery of wrangell heart, angina presence unspecified Old myocardial infarction Abnormal electrocardiogram Precordial pain Procedures ECHOCARDIOGRAM PHARMACOLOGICAL STRESS TEST NE ECHO TTHRC R-T 2D W/WO M-MODE REST&STRS CONT ECG NE DOPPLER ECHO HEART,LIMITED,F/U NE DOPPLER COLOR FLOW VELOCITY MAP Sherwin Cali II, MD [address] [place] [id number] [facility] [address] [place] [id number] Reason Comments Pain Follow-up Reason Comments Follow-up Pre-op right CTR Status Reason Specialty Diagnoses / Procedures Referre d By Contact Referred To Contact Diagnoses Carpal tunnel syndrome on right Carpal tunnel syndrome on right [G56.01] Procedures NE REVISE MEDIAN N/CARPAL TUNNEL SURG DECOMPRESSION TRANSPOSITION MEDIAN NERVE Bravo Cote MD [address] [place] [id number] Reason Comments Post Op Visit OR date [...] shoulders Timur Naranjo, Bassem Mix, DO [address] [place] [phone] Hugo Murray, DO [address] [place] [id number] Reason Comments Joint Pain Patient is an add on , hasnt been seen in over a year, states that her medication no longer works. Patient states that she is in a lot of pain. Specialty Diagnoses / Procedures Referred By Jos t Referred To Contact Cardiology Diagnoses Coronary artery disease involving wrangell coronary artery, unspecified whether angina present, unspecified whether wrangell or transplanted heart Angina pectoris (HCC) Pre-operative cardiovascular examination Procedures ECG 12 Lead Anton Zuñiga MD [address] [place] [address] Referral ID Status Reason Start Date Expiration Date Visits Re quested Visits Authorized [id number] Closed 08/27/2021 08/27/2022 1 1 Bravo Cote [...] 50 years ago had from food Hyperlipidemia PA (myocardial infarction) reports small over ten years [...] file Gets together: Not on file Attends protestant service: Not on file Active member of [...] section and content) SURGEON: Adrián Cote M.D. PECAN PICKER: None. PREOPERATIVE DIAGNOSIS: Right carpal tunnel syndrome. POSTOPERATIVE DIAGNOSIS: Right carpal tunnel syndrome. PROCEDURE: Right carpal tunnel release using [employer] safeguard system. CPT 12033 ANESTHESIA: Local with sedation. ESTIMATED BLOOD LOSS: Minimal. COMPLICATIONS: None. DISPOSITION: Taken to the recovery room stable. INDICATIONS: Asif Dela Cruz is 64 y.o. years old. Asif presented to my office with symptoms of Carpal tunnel syndrome on right [G56.01] and has failed non operative management. The risk and benefits of the procedure have been discussed in detail as well as non surgical options and Asif does wish to proceed. OPERATIVE TECHNIQUE: After [...] tolerated the procedure well. DATE: 01/30/2020 Patient: Asif Dela Cruz Pre-Op Dx: Carpal tunnel syndrome on right [G56.01] Post-Op Dx: Carpal tunnel syndrome on right [G56.01] Procedure: Procedure(s) (LRB): DECOMPRESSION TRANSPOSITION MEDIAN NERVE RIGHT (Right) Surgeon: Surgeon(s) and Role: * Bravo Cote MD - Primary Coal Trimmer: * No surgical staff found * ANESTHESIA [...] Active Member Role Status Dates Devi Delgado SILK SCREEN PRINTER, SILK SCREEN PRINTER-C Primary Care Provider Active Team Status: Inactive Member Role Status Dates Dr. Pat Bennett MD Referring Provider Active Devi Danny SILK SCREEN PRINTER, SILK SCREEN PRINTER-C Primary Care Provider, Attending P rovider Active Team Status: Inactive Member Role Status Dates Devi Delgado SILK SCREEN PRINTER, SILK SCREEN PRINTER-C Primary Care Provider, Referring P rovider Active Dr. Seven Garcia MD Attending Provider Active Team Status: Inactive Member Role Status Dates Devi Delgado SILK SCREEN PRINTER, SILK SCREEN PRINTER-C Primary Care Provider Active Dr. Jozef Brar DO Attending Provider, Emergency Provider Active Team Status: Inactive Member Role Status Dates Devi Delgado SILK SCREEN PRINTER, SILK SCREEN PRINTER-C Primary Care Provider Active Dr. Denise Uribe MD Attending Provider, Referring Provider Active Team Status: Inactive Member Role Status Dates Devi Delgado SILK SCREEN PRINTER, SILK SCREEN PRINTER-C Primary Care Provide r, Attending Provider, Referring Provider Active Building Stonecutter Relationship Specialty Start Date End Date No, Physician [facility] PCP - General 02/24/21 Building Stonecutter Relationship Specialty Start Date End Date No, Physician [facility] PCP - General 02/24/21 Building Stonecutter Relationship Specialty Start Date End Date No, Physician [facility] PCP - General 02/24/21 Building Stonecutter Relationship Specialty Start Date End Date No, Physician [facility] PCP - General 02/24/21 Team Status: Active Member Role Status Dates Dr. Pat Bennett MD Primary Care Provider Active Team Status: Inactive Member Role Status Dates Dr. Pat Bennett MD Primary Care Provider, Attendi ng Provider Active Team Status: Inactive Member Role Status Dates Dr. Pat Bennett MD Primary Care Provider Active Dr. Asif Marie DO Attending Provider Active Team Status: [...] Schwartz MD Attending Provider Active Dr. Carrillo Buckley DO Other [...] Provider, Referri ng Provider Active Devi Delgado SILK SCREEN PRINTER, SILK SCREEN PRINTER-C Attending Provider Active Team Status: Inactive Member Role Status Dates Dr. Pat Bennett MD Primary Care Provider Active Dr. Asif Marie DO Attending Provider, Referring P rovider Active Team Status: Inactive Member Role Status Dates Devi Delgado SILK SCREEN PRINTER, SILK SCREEN PRINTER-C Primary Care Provider Active Dr. Jozef Brar DO Emergency Provider Active Team Status: Active Member Role Status Dates Dr. Denise Uribe MD Primary Care Provider Active Team Status: Inactive Member Role Status Dates Devi Danny SILK SCREEN PRINTER, SILK SCREEN PRINTER-C Referring Provider Active Dr. Seven Garcia MD Attending Provider Active Dr. Denise Uribe MD Primary Care Provider Active Team Status: Inactive Member Role Status Dates Devi Delgado SILK SCREEN PRINTER, SILK SCREEN PRINTER-C Referring Provider Active Humaira Bae PA, PA Attending Provider Active Dr. Denise Uribe MD Primary Care Provider Active Team Status: Inactive Member Role Status Dates Devi Delgado SILK SCREEN PRINTER, SILK SCREEN PRINTER-C Primary Care Provider, Referring P rovider Active Dr. Denise Uribe MD Attending Provider Active Team Status: Inactive Member Role Status Dates Devi Delgado SILK SCREEN PRINTER, SILK SCREEN PRINTER-C Referring Provider Active Dr. Denise Uribe MD [...] 22, 2024 End: April 22, 2024 Humaira Bae PA, PA Attending Provider Active Start: April 22, 2024 End: April 22, 2024 Humaira Bae PA, PA Referring Provider Active Start: April 22, 2024 End: April 22, 2024 Team Status: Active Member Role Status Dates Dr. Denise Uribe MD Primary Care Provider Active Start: April 22, 2024 Dr. Carrillo Handley MD Attending Provider Active S tart: April 22, 2024 Humaira Bae PA, PA Referring Provider Active Start: April 22, 2024 Team Status: Active Member Role Status Dates Dr. Denise Uribe MD Primary Care Provider Active Start: April 22, 2024 Humaira Bae PA, PA Referring Provider Active Start: April 22, 2024 Humaira Bae PA, PA Other Provider Active Start: April 22, [...] Start: May 14, 2024 Dr. Tru Mayer , DO Emergency Provider Activ e Start: May 14, 2024 Dr. Bassem Diamond , DO Admit Provider Active Start: May 14, 2024 Dr. Bassem Diamond , DO Other Provider Active Start: May 14, [...] End: May 14, 2024 Dr. Bassem Diamond , Referring Provider Active Start: May 14, 2024 End: May 14, 2024 Team Status: Active Member Role Status Dates Dr. Denise Uribe MD Primary Care Provider Active Start: May 14, 2024 Dr. Tru Mayer , DO Emergency Provider Activ e Start: May 14, 2024 Dr. Bassem Diamond , DO Admit Provider Active Start: May 14, 2024 Dr. Bassem Diamond , Other Provider Active Start: May 14, 2024 [...] Start: May 16, 2024 Dr. Bassem Diamond DO Other Provider Active Start: May 16, [...] End: May 18, 2024 Dr. Bassem Diamond , DO Referring Provider Active Start: May 18, 2024 End: May 18, 2024 Team Status: Active Member Role Status Dates Dr. Denise Uribe MD Primary Care Provider Active Start: May 19, 2024 Dr. Tru Mayer , DO Emergency Provider Activ e Start: May 19, 2024 Dr. Bassem Diamond , DO Admit Provider Active Start: May 19, 2024 Dr. Bassem Diamond , DO Other Provider Active Start: May 19, [...] Start: May 19, 2024 Dr. Bassem Diamond , DO Admit Provider Active Start: May 19, 2024 Dr. Bassem Diamond , DO Other Provider Active Start: May 19, [...] Start: May 22, 2024 Dr. Tru Mayer DO [...] Start: September 17, 2024 Dr. Carrillo Lenz DO Emergency Provider Active Start: September 17, 2024 Dr. Jailyn Wiggins MD Admit Provider Active St art: September 17, 2024 Dr. Jailyn Wiggins MD Attending Provider Active Start: September 17, 2024 Team Status: Active Member Role/Relationship Status Dates Dr. Denise Uribe MD Primary Care Provider Active Team Status: Inactive Member Role/Relationship Status Dates Dr. Denise Uribe MD Primary Care Provider Active Start: July 24, 2024 End: July 24, 2024 Dr. Denise Uribe MD Attending Provider Active Start: July 24, 2024 End: July 24, 2024 Dr. Denise Urbie MD Referring Provider Active Start: July 24, 2024 End: July 24, 2024 Team Status: Inactive Member Role/Relationship Status Dates Dr. Denise Uribe MD Primary Care Provider Active Start: July 24, 2024 End: July 24, 2024 Dr. Denise Uribe MD Attending Provider Active Start: July 24, 2024 End: July 24, 2024 Dr. Denise Uribe MD Referring Provider Active Start: July 24, 2024 End: July 24, 2024 Team Status: Inactive Member Role/Relationship Status Dates Dr. Denise Uribe MD Primary Care Provider Active Start: August 07, 2024 End: August 07, 2024 Dr. Denise Uribe MD Attending Provider Active Start: August 07, 2024 End: August 07, 2024 Dr. Denise Uribe MD Referring Provider Active Start: August 07, 2024 End: August 07, 2024 Team Status: Inactive Member Role/Relationship Status Dates Dr. Denise Uribe MD Primary Care Provider Active Start: September 17, 2024 End: September 19, 2024 Dr. Carrillo Lenz DO Emergency Provider Active Start: September 17, 2024 End: September 19, 2024 Dr. Jailyn Wiggins MD Admit Provider Active St art: September 17, 2024 End: September 19, 2024 Dr. Jailyn Wiggins MD Other Provider Active St art: September 17, 2024 End: September 19, 2024 Dr. Franck Butler MD Other Provider Active Start: September 17, 2024 End: September 19, 2024 Dr. Bassem Schwartz MD Attending Provider Active Start: September 17, 2024 End: September 19, 2024 Team Status: Active Member Role/Relationship Status Dates Dr. Denise Uribe MD Primary Care Provider Active Start: September 18, 2024 Dr. Carrillo Lenz DO Emergency Provider Active Start: September 18, 2024 Dr. Jailyn Wiggins MD Admit Provider Active St art: September 18, 2024 Dr. Jailyn Wiggins MD Other Provider Active St art: September 18, 2024 Dr. Franck Butler MD Other Provider Active Start: September 18, 2024 Dr. Bassem Schwartz MD Attending Provider Active Start: September 18, 2024 Dr. Bassem Schwartz MD Other Provider Active Star t: September 18, 2024 Team Status: Active Member Role/Relationship Status Dates Dr. Denise Uribe MD Primary Care Provider Active Start: September 18, 2024 Dr. Carrillo Lenz DO Emergency Provider Active Start: September 18, 2024 Dr. Jailyn Wiggins MD Admit Provider Active St art: September 18, 2024 Dr. Jailyn Wiggins MD Other Provider Active St art: September 18, 2024 Dr. Franck Butler MD Attending Provider Active Start: September 18, 2024 Dr. Franck Butler MD Other Provider Active Start: September 18, 2024 Dr. Bassem Schwartz MD Referring Provider Active Start: September 18, 2024 Dr. Bassem Schwartz MD Other Provider Active Star t: September 18, 2024 Team Status: Active Member Role/Relationship Status Dates Dr. Denise Uribe MD Primary Care Provider Active Start: September 19, 2024 Dr. Carrillo Lenz DO Emergency Provider Active Start: September 19, 2024 Dr. Jailyn Wiggins MD Admit Provider Active St art: September 19, 2024 Dr. Jailyn Wiggins MD Other Provider Active St art: September 19, 2024 Dr. Franck Butler MD Attending Provider Active Start: September 19, 2024 Dr. Franck Butler MD Other Provider Active Start: September 19, 2024 Dr. Bassem Schwartz MD Other Provider Active Star t: September 19, 2024 Team Status: Active Member Role/Relationship Status Dates Dr. Denise Uribe MD Primary Care Provider Active Start: September 19, 2024 Dr. Carrillo Lenz DO Emergency Provider Active Start: September 19, 2024 Dr. Jailyn Wiggins MD Admit Provider Active St art: September 19, 2024 Dr. Jailyn Wiggins MD Other Provider Active St art: September 19, 2024 Dr. Franck Butler MD Other Provider Active Start: September 19, 2024 Dr. Bassem Schwartz MD Attending Provider Active Start: September 19, 2024 Dr. Bassem Schwartz MD Other Provider Active Star t: September 19, 2024 Team Status: Inactive Member Role/Relationship Status Dates Dr. Denise Uribe MD Primary Care Provider Active Start: November 15, 2024 End: November 15, 2024 Dr. Sanju Hernandez MD Emergency Provider Active S tart: November 15, 2024 End: November 15, 2024 Team Status: Inactive Member Role/Relationship Status Dates Dr. Denise Uribe MD Primary Care Provider Active Start: September 17, 2024 End: September 19, 2024 Dr. Carrillo Lenz DO Emergency Provider Active Start: September 17, 2024 End: September 19, 2024 Dr. Jailyn Wiggins MD Admit Provider Active St art: September 17, 2024 End: September 19, 2024 Dr. Jailyn Wiggins MD Other Provider Active St art: September 17, 2024 End: September 19, 2024 Dr. Franck Butler MD Other Provider Active Start: September 17, 2024 End: September 19, 2024 Dr. Bassem Schwartz MD Attending Provider Active Start: September 17, 2024 End: September 19, 2024 Team Status: Active Member Role/Relationship Status Dates Dr. Denise Uribe MD Primary Care Provider Active Start: September 18, 2024 Dr. Carrillo Lenz , Emergency Provider Active Start: September 18, 2024 Dr. Jailyn Wiggins MD Admit Provider Active St art: September 18, 2024 Dr. Jailyn Wiggins MD Other Provider Active St art: September 18, 2024 Dr. Franck Butler MD Other Provider Active Start: September 18, 2024 Dr. Bassem Schwartz MD Attending Provider Active Start: September 18, 2024 Dr. Bassem Schwartz MD Other Provider Active Star t: September 18, 2024 Team Status: Active Member Role/Relationship Status Dates Dr. Denise Uribe MD Primary Care Provider Active Start: September 18, 2024 Dr. Carrillo Lenz DO Emergency Provider Active Start: September 18, 2024 Dr. Jailyn Wiggins MD Admit Provider Active St art: September 18, 2024 Dr. Jailyn Wiggins MD Other Provider Active St art: September 18, 2024 Dr. Franck Butler MD Attending Provider Active Start: September 18, 2024 Dr. Franck Butler MD Other Provider Active Start: September 18, 2024 Dr. Bassem Schwartz MD Referring Provider Active Start: September 18, 2024 Dr. Bassem Schwartz MD Other Provider Active Star t: September 18, 2024 Team Status: Active Member Role/Relationship Status Dates Dr. Denise Uribe MD Primary Care Provider Active Start: September 19, 2024 Dr. Carrillo Lenz DO Emergency Provider Active Start: September 19, 2024 Dr. Jailyn Wiggins MD Admit Provider Active St art: September 19, 2024 Dr. Jailyn Wiggins MD Other Provider Active St art: September 19, 2024 Dr. Franck Butler MD Attending Provider Active Start: September 19, 2024 Dr. Franck Butler MD Other Provider Active Start: September 19, 2024 Dr. Bassem Schwartz MD Other Provider Active Star t: September 19, 2024 Team Status: Active Member Role/Relationship Status Dates Dr. Denise Uribe MD Primary Care Provider Active Start: September 19, 2024 Dr. Carrillo Lenz DO Emergency Provider Active Start: September 19, 2024 Dr. Jailyn Wiggins MD Admit Provider Active St art: September 19, 2024 Dr. Jailyn Wiggins MD Other Provider Active St art: September 19, 2024 Dr. Franck Butler MD Other Provider Active Start: September 19, 2024 Dr. Bassem Schwartz MD Attending Provider Active Start: September 19, 2024 Dr. Bassem Schwartz MD Other Provider Active Star t: September 19, 2024 Team Status: Inactive Member Role/Relationship Status Dates Dr. Denise Uribe MD Primary Care Provider Active Start: November 15, 2024 End: November 15, 2024 Dr. Sanju Hernandez MD Attending Provider Active S tart: November 15, 2024 End: November 15, 2024 Dr. Sanju Hernandez MD Emergency Provider Active S tart: November 15, 2024 End: November 15, 2024 Team Status: Inactive Member Role/Relationship Status Dates Dr. Denise Uribe MD Primary Care Provider Active Start: January 06, 2025 End: January 06, 2025 Dr. Denise Uribe MD Referring Provider Active Start: January 06, 2025 End: January 06, 2025 SILVIA Huitron Attending Provider Active Start: January 06, 2025 End: January 06, 2025 Team Status: Inactive Member Role/Relationship Status Dates Dr. Denise Uribe MD Primary Care Provider Active Start: January 06, 2025 End: January 06, 2025 SILVIA Huitron Attending Provider Active Start: January 06, 2025 End: January 06, 2025 SILVIA Huitron Referring Provider Active Start: January 06, 2025 End: January 06, 2025 Team Status: Active Member Role/Relationship Status Dates Dr. Denise Uribe MD Primary care physician Active Team Status: Inactive Member Role/Relationship Status Dates Dr. Denise Uribe MD Primary care physician Active Start: November 15, 2024 End: November 15, 2024 Dr. Sanju Hernandez MD Attending physician Active Start: November 15, 2024 End: November 15, 2024 Dr. Sanju Hernandez MD Emergency Department Physician Ac tive Start: November 15, 2024 End: November 15, 2024 Team Status: Inactive Member Role/Relationship Status Dates Dr. Denise Uribe MD Primary care physician Active Start: January 06, 2025 End: January 06, 2025 Dr. Denise Uirbe MD Referring Provider Active Start: January 06, 2025 End: January 06, 2025 SILVIA Huitron Attending physician Active Start: January 06, 2025 End: January 06, 2025 Team Status: Inactive Member Role/Relationship Status Dates Dr. Denise Uribe MD Primary care physician Active Start: January 06, 2025 End: January 06, 2025 SILVIA Huitron Attending physician Active Start: January 06, 2025 End: January 06, 2025 SILVIA H[employer]ron Referring Provider Active Start: January 06, 2025 End: January 06, 2025 Team Status: Active Member Role/Relationship Status Dates Dr. Denise Uribe MD Primary care physician Active Start: February 05, 2025 Dr. Tru Mayer DO Emergency Department Physician Active Start: February 05, 2025 Dr. Carol Petty MD Admitting physician Active Start: February 05, 2025 Dr. Carol Petty MD Attending physician Active Start: February 05, 2025 Dr. Carol Petty MD Nurse Practitioner Active Start: February 05, 2025 Goals (unrecognized section and content) Type Treatment Intervention Code Status: Full Code - VerifiedDiscussed with: Patient FOR RECORDS PERTAINING TO PATIENTS WHO ARE [...] BE BASED ON THE PRIMARY CLINICAL RECORDS. [employer] [facility]. provides no warranty or guarantee of the accuracy or completeness of information in this document.
[2025-02-05] MEDS: Pantoprazole Sodium 40 MG in 0.9% Normal Saline (100mL MB+) 100 ML 300 MG IV (22:32)
[2025-02-05] MEDS: TICAGRELOR 90 MG TABLET PO (22:33)
[2025-02-05] MEDS: Divalproex Sodium 125 MG SPRINKLE PO (22:33)
[2025-02-05] MEDS: APIXABAN 5 MG TABLET PO (22:33)
[2025-02-05] MEDS: Insulin Glargine-YFGN 100 UNIT/ML Pen 30 UNIT SC (22:34)
[2025-02-05] MEDS: guaiFENesin 10 ML UDC (200MG/10ML) 20 ML PO (22:42)
[2025-02-06 05:00] VITALS: BP 165/73; PULSE 71; RESP 14; TEMP 36; O2SAT 96
[2025-02-06 05:30] VITALS: BMI 32.6
[2025-02-06 05:50] LABS: Hematocrit 29.4 % (37-47); Hemoglobin 9.2 g/dL (12.0-15.0); Immature Granulocytes Count 0.050 X10^3/uL (0.0-0.0); Mean Corp Hgb Conc 31.3 g/dL (32-36); Mean Corpuscular Volume 87.2 fL (81-99); Mean Platelet Vol. 8.6 fl (6.2-12.0); NRBC Flagged by Analyzer 0 % (0-5); Platelet Count 407 K/mm3 (150-450); RBC Distribution Width CV 17.9 % (11.6-14.6); RBC Distribution Width SD 56.9 fl (35.1-43.9); Red Blood Count 3.37 M/mm3 (4.2-5.4); White Blood Count 7.5 K/mm3 (4.4-11.0)
[2025-02-06 06:22] LABS: Anion Gap 13 (5-15); BUN 25 mg/dL (4-19); BUN/Creat Ratio 13.0 RATIO (10-20); Calcium,Total 9.1 mg/dL (7.6-11.0); Carbon Dioxide 20.9 mmol/L (21.0-32.0); Chloride 98 mmol/L (98-108); Estimated Creatinine Clearance 25.23 ml/min (50-250); Glucose 146 mg/dL (70-99); Potassium 4.5 mmol/L (3.3-5.1)
[2025-02-06] MEDS: guaiFENesin 10 ML UDC (200MG/10ML) 20 ML PO ×2 (06:26→16:50)
[2025-02-06 11:00] VITALS: BP 149/87; PULSE 84; RESP 16; TEMP 36.7; O2SAT 98
[2025-02-06] MEDS: TICAGRELOR 90 MG TABLET PO ×2 (11:00→21:36)
[2025-02-06] MEDS: Divalproex Sodium 125 MG SPRINKLE PO ×2 (11:00→21:34)
[2025-02-06] MEDS: APIXABAN 5 MG TABLET PO ×2 (11:00→21:34)
[2025-02-06] MEDS: Pantoprazole Sodium 40 MG in 0.9% Normal Saline (100mL MB+) 100 ML 300 MG IV (11:01)
--- NOTE | 2025-02-06 13:15 | CASEMGMT ---
WU MACKAY technical publications writer CM to room to meet with patient for initial transition planning/care coordination assessment. WU MACKAY introduced self and role at [facility]. Patient resting in bed, alert and oriented. Patient willing to participate in assessment and is able to answer all questions appropriately.? Care providers, pharmacy, and demographics verified. Strata: 3 PCP: Dr. Uribe Specialists: Dr. Garcia, endocrinology. Dr Marcelino, cardiology. Dr Conner-ENT. Pt [facility] [place]. She sees a neurologist in [place], but does not remember name of doctor. Preferred Pharmacy: [facility]. Insurance: [facility] Medicare Dual Complete and Medicaid. Prescription Benefit:?Yes HCPOA/LW: Pt interested in completing AD, stating she is still legally and does not want her to be HCPOA. Ced, [employer] made aware. LNOK: 2 children; daughter, Lisa and son Jonathan. Mother is living, but has Alzheimer's-type dementia. Pt is , but still legally . Living Arrangements: Pt lives with her mother and adult daughter Lisa.? They live in mobile home w/ ramp entrance. Pt is independent w/ADL's and IADL's & takes care of her mother. Pt reports difficulty w/taking care of her her mother and managing the home. She reports difficulty w/struggles w/her mother having Alzheimer's. Offered Alzheimer's support group information and pt voices appreciation. She does not want referral made, just info and contact #, stating she will reach out to them on her own. Pt also interested in palliative care info for her mother. Transportation: Pt drives. She states if she is not feeling well a friend/neighbor can drive for her. DME: Quad cane, standard canes, rollator, walker, grab bars, W/C, ramp entrance, functioning glucometer w/sufficient supplies glucometer w/supplies, sufficient supply of insulin and needles. Pt states had a CGM but was having problems w/it & needed more supplies. She is in the process of working w/Dr Garcia's office to get this again. HHC/SNF: No hx of either. Pt declines need for HHC or OP therapy. Patient wishes to discharge home and denies having any discharge needs or concerns. Patient states he has no further needs at this time. ? WU MACKAY/SW to follow for discharge planning needs that may arise. Plan: Home Leidy MEDINA RN, CM
--- NOTE | 2025-02-06 14:32 | PN_ITS ---
Subjective Subjective Patient seen and examined. She complained of feeling weak and tired. She denied any lightheadedness, dizziness, nausea, vomiting, palpitations or any other symptoms. Review of systems was otherwise negative. She has remained hemodynamically stable. Objective Data Objective Data Vital Signs: Vital Signs Temp Pulse Resp BP Pulse Ox O2 Del Method 96.8 F L 71 14 165/73 H 96 Room Air 02/06/25 05:00 02/06/25 05:00 02/06/25 05:00 02/06/25 05:00 02/06/25 05:00 02/06/25 05:00 Oxygen Delivery Method Room Air Weight: 162 lb 0.636 oz Body Mass Index (BMI) 32.6 Intake & Output: Intake and Output for Last 24 Hours 02/04/25 02/05/25 02/06/25 23:59 23:59 23:59 Intake Total 2526.75 / 2544.25 117.5 / 117.5 Balance 2526.75 / 2544.25 117.5 / 117.5 Lab / Micro Data 02/06/25 05:23 02/06/25 05:23 Labs: Laboratory Results - last 24 hr 02/05/25 13:07: WBC 9.3, RBC 3.55 L, Hgb 9.7 L, Hct 30.7 L, MCV 86.5, MCH 27.3, MCHC 31.6 L, RDW Std Deviation 58.0 H, RDW Coeff of Yaw 18.3 H, Plt Count 477 H, MPV 9.0, Immature Gran % (Auto) 0.600, Neut % (Auto) 65.9, Lymph % (Auto) 19.0, Mayes % (Auto) 10.7 H, Eos % (Auto) 3.3, Baso % (Auto) 0.5, Absolute Neuts (auto) 6.1, Absolute Lymphs (auto) 1.77, Nucleated RBC % 0, Troponin T High Sens 35 H D , NT pro BNP II 194 02/05/25 14:08: Sodium 135, Potassium 3.2 L, Chloride 102, Carbon Dioxide 18.3 L , Anion Gap 14, BUN 26 H, Creatinine 2.33 H, Estim Creat Clear Calc 20.51 L, Est GFR (MDRD) Non-Af 22 L, BUN/Creatinine Ratio 11.0, Glucose 155 H, Calcium 6.8 L, Magnesium 1.7, Total Bilirubin 0.27, AST 17, ALT 17, Alkaline Phosphatase 84, T otal Protein 5.2 L, Albumin 3.1 L, Globulin 2.1 L, Albumin/Globulin Ratio 1.4 02/05/25 14:35: PT 15.9 H, INR 1.2, APTT 28.8, D-Dimer Quant (PE/DVT) < 0.27 L, Lactic Acid 2.9 H* 02/05/25 15:03: POC Glucose 173 H 02/05/25 15:46: Urine Color Yellow, Urine Clarity Clear, Urine pH 5.0, Ur Specific [place] 1.020, Urine Protein 100 H, Urine Glucose (UA) 1000 H, Urine Ketones Negative, Urine Occult Blood Negative, Urine Nitrite Negative, Urine Bilirubin Negative, Urine Urobilinogen Normal, Ur Leukocyte Esterase Negative, Urine RBC 0 SEEN, Urine WBC 0-5 SEEN, Ur Squamous Epith Cells 0 SEEN, Urine Bacteria 0 SEEN, Urine Mucus 0 SEEN 02/05/25 16:07: Troponin T Hi Sens 2 Hr 32 H 02/05/25 19:32: Lactic Acid 1.9 02/05/25 22:24: POC Glucose 194 H 02/06/25 05:23: WBC 7.5, RBC 3.37 L, Hgb 9.2 L, Hct 29.4 L, MCV 87.2, MCH 27.3, MCHC 31.3 L, RDW Std Deviation 56.9 H, RDW Coeff of Yaw 17.9 H, Plt Count 407, MPV 8.6, Immature Gran % (Auto) 0.700, Neut % (Auto) 65.3, Lymph % (Auto) 18.5 L , Mayes % (Auto) 9.7, Eos % (Auto) 4.9, Baso % (Auto) 0.9, Absolute Neuts (auto) 4.9, Absolute Lymphs (auto) 1.39, Nucleated RBC % 0, Sodium 132 L, Potassium 4.5, Chloride 98, Carbon Dioxide 20.9 L, Anion Gap 13, BUN 25 H, Creatinine 1.91 H, Estim Creat Clear Calc 25.23 L, Est GFR (MDRD) Non-Af 28 L, BUN/Creatinine Ratio 13.0, Glucose 146 H, Calcium 9.1, Hep Bs Antigen Cancelled, Hepatitis C Antibody Cancelled, HIV 1&2 Antibody Cancelled 02/06/25 06:17: POC Glucose 157 H 02/06/25 12:01: POC Glucose 139 H Micro: Microbiology 02/05/25 20:15 Mucosa - Nasopharyngeal Respiratory Panel (PCR) - Final 02/05/25 15:10 Blood Culture (Wb) - Anticubital Left Blood Culture - Preliminary 02/05/25 13:07 Mucosa - Nose SARS-CoV-2, Influenza & RSV (PCR) - Final Radiography Diagnostic Testing: Radiology Impression Brain CT 02/05/25 14:50 IMPRESSION: 1. No evidence of intracranial hemorrhage or acute ischemia. 2. Changes of chronic microvascular ischemia and volume loss. Reading Location: [facility] Cervical Spine CT 02/05/25 14:50 IMPRESSION: DEGENERATIVE CHANGES OF THE CERVICAL SPINE. NO EVIDENCE OF SIGNIFICANT OSSEOUS CENTRAL CANAL OR NEURAL FORAMINAL STENOSIS. [facility]Ray 02/05/25 14:55 IMPRESSION: Mild cardiac enlargement. Reading Location: [facility] Echocardiogram 02/05/25 18:02 Interpretation Summary Normal LV size. Left ventricular systolic function is normal. The left ventricular ejection fraction is 55 %. Mean aortic valve gradient 8 mmHg. Contrast injection was performed. Ordering Physician: Carol Petty Performed By: Tru Garrett RCS Physical Exam Const alert and oriented x3 Constitutional Narrative: frail, looks weak General Appearance: cooperative HEENT normocephalic and head/scalp atraumatic Mouth: dry mucous membranes Eyes EOMs intact bilaterally Neck supple and no JVD Lymph Lymphatic: no lymphedema noted Resp Resp Narrative: mildly diminished breath sounds bibasally, no wheezes or crackles. On room air. Cardio regular rate, regular rhythm, S1 normal heart sound, S2 normal heart sound and no murmurs GI normal to inspection, nondistended, normoactive bowel sounds, soft to palpation, non-tender and non-distended Extremity normal capillary refill, no clubbing, cyanosis or edema and no calf tenderness Skin Skin Narrative: superficial excoriations on her face, due to her picking on her skin on her face. Neuro no focal motor deficits and no sensory deficits noted Motor Exam: general weakness Psych thought process normal and cooperative Mood & Affect: flat affect Assessment & Plan Assessment/Plan (1) Syncope: (2) Hyponatremia: PLAN: Plan #Syncope * Patient apparently passed out once coughing at home. It was a transient syncope so may have been a vasovagal syncope. * She has been falling frequently at home and says she had a relative test positive for COVID recently. She is on room air. PT OT on board. Fall precautions. * 2D echo showed EF of 55% and normal ventricular size and systolic function. No regional wall motion abnormalities noted. * Check orthostatics. Hydrate gently with IV fluids. * CT of the brain showed no acute intracranial pathology. #Debility and weakness * Patient has been having nausea and some diarrhea as well and also had sick contacts with persistent nasal congestion and cough. * Chest x-ray showed no evidence of pneumonia respiratory panel is negative. * Supportive care with fluids and breathing treatments bronchodilators as well as cough syrup. * Preliminary blood cultures growing gram-positive cocci in clusters * Started on IV vancomycin pending speciation. #Gram-positive bacteremia * Preliminary blood cultures growing gram-positive cocci in 1 out of 2 samples, and clusters as above. * Started on IV vancomycin. Awaiting final cultures. Consult ID. 2D echo done today showed no evidence of vegetation * #SALVATORE: improving. Cr is down to 1.91 from 2.33 on admission. Continue hydration with iVF. #Hypokalemia: Resolved with replacement. #History of CAD s/p stents: On Brilinta and Eliquis. BP meds held due to hypotension #Hypertension: BP better today remain losartan and Coreg were held on admission due to hypotension. #Hypothyroidism: On Synthroid #Type 2 diabetes mellitus: Lantus resumed at a lower dose due to patient's poor p.o. intake. Insulin sliding scale. Accu-Cheks ACHS. When oral intake improves will resume full dose of long-acting insulin #Paroxysmal A-fib. Rate controlled. Carvedilol held due to hypotension. On Eliquis #History of bipolar disorder: On Eliquis #History of bipolar disorder: On Depakote DVT prophylaxis: Not indicated patient already on Eliquis. Charges/Coding Visit Charges Inpatient E&M: 28269 Subs Hosp L2
--- NOTE | 2025-02-06 15:09 | CHAPLAIN ---
Type of Pastoral Visit _x__ Initial Visit ___ Follow-up Visit ___ On-call Visit ___ General Patient Visit ___ Spiritual Assessment ___ Family Conference ___ Bereavement ___ Rapid Response ___ Code Blue ___ Other (describe below) Pastoral Care Referral From _x__ Patient ___ Family ___ Nurse ___ Physician ___ Emergency Detail Driver ___ Desktop Analyst ___ Other (describe below) Sacrament/Intervention _x__ Active listening ___ Anointing ___ Sabianism ___ Bereavement ___ Communion ___ Tabatha exploration ___ _x__ Life review _x__ Prayer ___ Reconciliation ___ Sacrament of Sick _x__ Supportive presence ___ Wedding ___ Other (describe below) Pastoral Comments patient is very talkative about her life and family and home situation; pt is very focused on the love of her puppy and how she will forgo taking the family vacation so she can stay home with the dog; 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
--- NOTE | 2025-02-06 15:21 | PCM.RX.CS ---
Consult Antibiotic Management Pharmacy has been consulted to manage selected antibiotic: Vancomycin Type of Intervention Type of Consult: New start Suspected Infection Suspected Infection: Bacteremia Labs Labs: Sodium 132 mmol/L (133-145) L 02/06/25 05:23 Potassium 4.5 mmol/L (3.3-5.1) 02/06/25 05:23 Chloride 98 mmol/L (98-108) 02/06/25 05:23 Carbon Dioxide 20.9 mmol/L (21.0-32.0) L 02/06/25 05:23 Anion Gap 13 (5-15) 02/06/25 05:23 BUN 25 mg/dL (4-19) H 02/06/25 05:23 Creatinine 1.91 mg/dL (0.70-1.20) H 02/06/25 05:23 Est GFR (MDRD) Non-Af 28 (>60) L 02/06/25 05:23 BUN/Creatinine Ratio 13.0 RATIO (10-20) 02/06/25 05:23 Glucose 146 mg/dL (70-99) H 02/06/25 05:23 Microbiology Microbiology: Microbiology 02/05/25 20:15 Mucosa - Nasopharyngeal Respiratory Panel (PCR) - Final 02/05/25 15:10 Blood Culture (Wb) - Anticubital Left Blood Culture - Preliminary 02/05/25 13:07 Mucosa - Nose SARS-CoV-2, Influenza & RSV (PCR) - Final Dosing Weight Weight used for dosin.7 kg Estimated Creatinine Clearance Estimated Creatinine Clearance: 25.2 Goal Trough Goal Trough: 15-20 mcg/mL Pharmacy Plan for Drug Dosing Pharmacy Plan for Drug Dosing: Pharmacy Service will continue to monitor and adjust dosing as required. NEW START IV VANCOMYCIN Consulting Physician: Miriam Indication: Sepsis (gram positive cocci in 1/2 blood cultures) Goal Trough: 15-20 SrCr: 25.2 CrCl: 1.91 (SALVATORE improving) Comments: afebrile, WBC: 7.5, Cultures: - 02/05 blood cultures: GPC in 1/2 bottles Vancomycin Dose: 750 mg Q24H with first dose 02/07 @ 1500 Pending Level: 02/08 @ 1430 Date/Time Labs Ordered Labs to be done on [date and time ordered]: 02/08/25 @ 1430
--- NOTE | 2025-02-06 16:03 | CASEMGMT ---
Social Work Referral received from RNCM for community resources for pt's mother. This TONY and TONY Cevallos met with pt. 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 Written information with phone number for referral provided. Information regarding Alzheimers Support Group and Palliative Medicine also provided to pt. Pt inquiring about Advance Directives. TONY informed pt that documents were completed in 2019 at [facility] and SW reviewed who pt chose as decision makers at that time. Pt requesting to update documents. TONY assisted pt in completing new HCPOA and Living Will naming pt's dgt Lisa and son Dino as medical decision makers. Copy placed on pt chart and sent to HIM. Original given to pt. Pt denies any further needs at this time. YAO Boothe
[2025-02-06] MEDS: Vancomycin HCl 1,750 MG in 0.9% Normal Saline (500mL Bag) 500 ML 250 MG IV (16:50)
[2025-02-06] MEDS: 0.9% Saline Lock 10 ML Syringe IV (19:47)
[2025-02-06 19:55] VITALS: BP 170/66; PULSE 77; RESP 16; TEMP 37.1; O2SAT 100
[2025-02-06] MEDS: Insulin Glargine-YFGN 100 UNIT/ML Pen 30 UNIT SC (21:34)
[2025-02-06 23:30] VITALS: BP 162/65; PULSE 79; RESP 14; TEMP 36.7; O2SAT 96
[2025-02-07 04:00] VITALS: BP 180/79; PULSE 83; RESP 18; TEMP 37; O2SAT 96
[2025-02-07 04:19] VITALS: BP 180/79; PULSE 83
[2025-02-07] MEDS: 0.9% Saline Lock 10 ML Syringe IV ×2 (04:19→06:05)
[2025-02-07 05:10] VITALS: BP 157/66; PULSE 92; RESP 14; TEMP 36.7; O2SAT 95
[2025-02-07 06:00] VITALS: BMI 30.6
[2025-02-07 06:28] LABS: Hematocrit 30.5 % (37-47); Hemoglobin 9.5 g/dL (12.0-15.0); Immature Granulocytes Count 0.030 X10^3/uL (0.0-0.0); Mean Corp Hgb Conc 31.1 g/dL (32-36); Mean Corpuscular Volume 87.4 fL (81-99); Mean Platelet Vol. 8.9 fl (6.2-12.0); NRBC Flagged by Analyzer 0 % (0-5); Platelet Count 471 K/mm3 (150-450); RBC Distribution Width CV 17.9 % (11.6-14.6); RBC Distribution Width SD 57.2 fl (35.1-43.9); Red Blood Count 3.49 M/mm3 (4.2-5.4); White Blood Count 6.4 K/mm3 (4.4-11.0)
[2025-02-07 06:49] LABS: Anion Gap 16 (5-15); BUN 19 mg/dL (4-19); BUN/Creat Ratio 14.1 RATIO (10-20); Calcium,Total 10.1 mg/dL (7.6-11.0); Carbon Dioxide 21.7 mmol/L (21.0-32.0); Chloride 95 mmol/L (98-108); Estimated Creatinine Clearance 35.04 ml/min (50-250); Glucose 240 mg/dL (70-99); Potassium 4.0 mmol/L (3.3-5.1)
--- NOTE | 2025-02-07 07:55 | PCM.RX.CS ---
Consult Antibiotic Management Pharmacy has been consulted to manage selected antibiotic: Vancomycin Type of Intervention Type of Consult: Follow-up Labs Labs: Sodium 133 mmol/L (133-145) 02/07/25 06:10 Potassium 4.0 mmol/L (3.3-5.1) 02/07/25 06:10 Chloride 95 mmol/L (98-108) L 02/07/25 06:10 Carbon Dioxide 21.7 mmol/L (21.0-32.0) 02/07/25 06:10 Anion Gap 16 (5-15) H 02/07/25 06:10 BUN 19 mg/dL (4-19) 02/07/25 06:10 Creatinine 1.33 mg/dL (0.70-1.20) H 02/07/25 06:10 Est GFR (MDRD) Non-Af 44 (>60) L 02/07/25 06:10 BUN/Creatinine Ratio 14.1 RATIO (10-20) 02/07/25 06:10 Glucose 240 mg/dL (70-99) H 02/07/25 06:10 Microbiology Microbiology: Microbiology 02/05/25 15:10 Blood Culture (Wb) - Anticubital Left Bacteria Detection (PCR) - Final Coag Negative Staph 02/05/25 15:10 Blood Culture (Wb) - Anticubital Left Blood Culture - Preliminary Coag Negative Staph 02/05/25 20:15 Mucosa - Nasopharyngeal Respiratory Panel (PCR) - Final 02/05/25 13:07 Mucosa - Nose SARS-CoV-2, Influenza & RSV (PCR) - Final Pharmacy Plan for Drug Dosing Pharmacy Plan for Drug Dosing: DAILY ASSESSMENT Current Vancomycin Dose: 750mg IV Q24h Number of Doses Received: 1 (initial dose, no scheduled doses) Current Renal Function: SCr1.33/ CrCl 35 mL/min Renal Function Trend: significant improvement from yesterday Lab/Micro: BCx growing staph spp x2 Any Change in Vanc Plan: Patient with improvement in renal function. Now qualifies for vancomycin 1000mg IV Q24h to start 02/07/25 @1500 Pending Level: 02/08/25 @1430 (no change in trough timing from initial start) Pharmacy Service will continue to monitor and adjust dosing as required.
[2025-02-07 09:20] VITALS: BP 148/64; PULSE 88; RESP 18; TEMP 36.6; O2SAT 94
[2025-02-07] MEDS: Divalproex Sodium 125 MG SPRINKLE PO (09:24)
[2025-02-07] MEDS: TICAGRELOR 90 MG TABLET PO (09:24)
[2025-02-07] MEDS: APIXABAN 5 MG TABLET PO (09:24)
[2025-02-07] MEDS: Pantoprazole Sodium 40 MG in 0.9% Normal Saline (100mL MB+) 100 ML 300 MG IV (09:27)
--- NOTE | 2025-02-07 10:51 | CON.PCM.ID_ITS ---
Assessment & Plan Assessment/Plan (1) Contamination of blood culture: PLAN: 1 of 2 bcx with CoNS, so far consistent with contaminant. Normal wbc, no fever. Will stop vanc. Will follow as needed, thank you HPI Consult Data Date of Consult: 02/07/25 HPI Narrative Reason for Consultation: blood culture positive HPI Narrative: ASIF CASTRO, is a 69 F who presented 02/05 to ED with acute onset weakness and syncope. Some chronic dry cough. Has been having some increased weakness. Sister recently with covid. Came to ED, admitted, then vanc started after bcx (+). Feeling better today. Full ROS performed and neg except as noted above. [facility] Medical History Recurrent falls Chronic anemia Acute kidney injury Bipolar disorder Umbilical hernia Hypothyroidism Hiatal hernia Gout Essential hypertension Atrial fibrillation Overweight (BMI 25.0-29.9) Polyneuropathy due to type 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 GFR 30-59 Fibromyalgia affecting multiple sites Shoulder pain, bilateral Hip pain, bilateral Tachybradycardia syndrome Near syncope Generalized OA Atherosclerotic heart disease of [place] coronary artery without angina pectoris Abnormal stress test Hypertension Chronic pancreatic insufficiency Depression Home Medications ?Medication ?Instructions ?Recorded ?Last Taken ?Type lancets #300 ea 01/24/23 Unknown Rx nitroglycerin 0.4 mg sublingual 0.4 mg sublingual Q5-1 5M PRN chest 10/04/23 Unknown Rx tablet (Nitrostat) pain #25 tabs blood sugar diagnostic (OneTouch #300 ea 11/29/23 Unkn own Rx Verio test strips) blood-glucose meter (OneTouch #1 ea 11/29/23 Unknown R x Verio Flex Meter) pen needle, diabetic 32 gauge x #400 ea 02/27/24 Unkno wn Rx (BD Ultra-Fine Sophia Pen Needle) allopurinol 100 mg tablet 100 mg PO QHS gout #90 tabs 03/18/24 05/12/24 Rx nystatin 100,000 unit/gram topical 1 applic topical BI D PRN for 03/19/24 05/12/24 Rx powder ([facility]) infectious disease #30 GMS flash glucose sensor (FreeStyle #6 ea 03/21/24 Unknown Rx Marilyn 14 Day Sensor kit) handicap placard #1 ea 04/16/24 Unknown Rx carvedilol 6.25 mg tablet 6.25 mg PO BID blood pressur e #180 06/06/24 Unknown Rx tabs ticagrelor 90 mg tablet 90 mg PO BID #180 tabs 08/21 Unknown Rx atorvastatin 80 mg tablet 80 mg PO QHS Hyperlipidemia #100 09/03/24 Unknown Rx tabs colestipol 1 gram tablet 1 g PO DAILY cholesterol #10 0 tabs 09/03/24 Unknown Rx albuterol sulfate 90 mcg/actuation 2 puff inhalation Q 6H PRN Wheezing 09/05/24 Unknown Rx aerosol inhaler #8.5 grams apixaban 5 mg tablet (Eliquis) 5 mg PO BID blood thinn er #180 tabs 09/11/24 Unknown Rx icosapent ethyl 1 gram capsule 2 g (2 x 1 gram) PO BID #120 caps 10/07/24 Unknown Rx (Vascepa) losartan 50 mg tablet 50 mg PO DAILY blood pressur e #84 10/21/24 Unknown Rx TABLETS divalproex 125 mg capsule,delayed 125 mg PO BID bipola r #56 caps 11/12/24 Unknown Rx release sprinkle insulin glargine 100 unit/mL (3 50 unit (0.5 mL) subcu t QHS 12/16/24 Unknown Rx mL) subcutaneous pen (Lantus diabetes #45 mL Solostar U-100 Insulin) rabeprazole 20 mg tablet,delayed 20 mg PO DAILY for ac id reflux #30 12/17/24 Unknown Rx release TABLETS dulaglutide 0.75 mg/0.5 mL 0.75 mg (0.5 mL) subcut QWE EK #2 mL 01/06/25 Unknown Rx subcutaneous pen injector (Trulicity) dulaglutide 0.75 mg/0.5 mL 0.75 mg (0.5 mL) subcut QWE EK #2 mL 01/06/25 Unknown Rx subcutaneous pen injector (Trulicity) amitriptyline 50 mg tablet 50 mg PO QHS sleep #30 tabs 01/24/25 Unknown Rx levothyroxine 112 mcg tablet 112 mcg PO .monday to mon day for 01/24/25 Unknown Rx disorder of thyroid gland #25 TABLETS insulin lispro 100 unit/mL 25 unit subcut TID diabetes 02/05/25 Unknown History subcutaneous pen (Humalog KwikPen (U-100) Insulin) Allergy/AdvReac Type Severity Reaction Status Date / Time duloxetine (From Cymbalta) Allergy Itching Verified 02/05/25 13:00 Environmental Allergies: Allergy Cough Verified 02/05/25 13:00 Uncoded tomato Allergy Itching Verified 02/05/25 13:00 diphenhydramine (From AdvReac Severe other Verified 02/05/25 13:00 Benadryl) isosorbide AdvReac Intermediate Other Verified 02/05/25 13:00 adhesive tape (plastic tape) AdvReac Rash Verified 02/05/25 13:00 semaglutide (From Ozempic) AdvReac Diarrhea Verified 02/05/25 13:00 Family History Sister COPD (chronic obstructive pulmonary disease) Mother COPD (chronic obstructive pulmonary disease) Hypertension Alzheimer's dementia without behavioral disturbance Father Diabetes Hypertension Myocardial infarction Parkinsons disease Surgical History History of surgical procedure History of laparoscopic appendectomy History of total abdominal hysterectomy Hx of cholecystectomy Hx of shoulder surgery Presence of stent in coronary artery (~09/06/21) Social History household members: family current occupational status: retired 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 Smoking Status: Current every day smoker tobacco type: cigarettes Electronic Cigarette Use: not used alcohol intake: never substance use type: does not use caffeine: No what type of physical activity do you participate in: none do you feel safe at home: Yes Physical Exam Const alert, oriented x3 and no apparent distress General Appearance: cooperative HEENT normocephalic and head/scalp atraumatic Eyes PERRL and EOMs intact bilaterally Neck supple and No nodes Resp normal air movement and clear to auscultation bilaterally Cardio regular rate and regular rhythm GI soft to palpation, non-tender and non-distended Extremity General Extremity: edema Skin no rashes or lesions noted Neuro CN's II-XII intact bilaterally Lab / Micro Data Attestation: I reviewed the patient's lab results. 02/07/25 06:10 02/07/25 06:10 Labs: Laboratory Results - last 24 hr 02/06/25 12:01: POC Glucose 139 H 02/06/25 16:37: POC Glucose 229 H 02/06/25 21:28: POC Glucose 196 H 02/07/25 06:10: WBC 6.4, RBC 3.49 L, Hgb 9.5 L, Hct 30.5 L, MCV 87.4, MCH 27.2, MCHC 31.1 L, RDW Std Deviation 57.2 H, RDW Coeff of Yaw 17.9 H, Plt Count 471 H, MPV 8.9, Immature Gran % (Auto) 0.500, Neut % (Auto) 63.0, Lymph % (Auto) 21.0, [place] % (Auto) 10.3 H, Eos % (Auto) 4.4, Baso % (Auto) 0.8, Absolute Neuts (auto) 4.0, Absolute Lymphs (auto) 1.34, Nucleated RBC % 0, Sodium 133, Potassium 4.0, Chloride 95 L, Carbon Dioxide 21.7, Anion Gap 16 H, BUN 19, Creatinine 1.33 H, E stim Creat Clear Calc 35.04 L, Est GFR (MDRD) Non-Af 44 L, BUN/Creatinine Ratio 14.1, Glucose 240 H, Calcium 10.1, POC Glucose 225 H Micro: Microbiology 02/05/25 15:10 Blood Culture (Wb) - Anticubital Left Bacteria Detection (PCR) - Final Coag Negative Staph 02/05/25 15:10 Blood Culture (Wb) - Anticubital Left Blood Culture - Preliminary Coag Negative Staph 02/05/25 20:15 Mucosa - Nasopharyngeal Respiratory Panel (PCR) - Final Imaging Radiology Impression Echocardiogram 02/05/25 18:02 Interpretation Summary Normal LV size. Left ventricular systolic function is normal. The left ventricular ejection fraction is 55 %. Mean aortic valve gradient 8 mmHg. Contrast injection was performed. Ordering Physician: Carol Petty Performed By: Brodwolf, Tru, RCS
--- NOTE | 2025-02-07 13:08 | PCM.DC.SUM ---
Providers Date of Admission: 02/05/25 Date of Discharge: 02/07/25 Primary Care Physician: Dr. Denise Uribe MD Consultations 02/06/25 14:49 Consult: Infectious Disease Routine Consulting Provider: Papito Long Reason for Consult: gram positive bacteremia EMERGENT Consult: No MD Notified: Yes Date Notified: 02/06/25 Time Notified: 14:49 Method of Notification: Text Reason For Visit: SYNCOPE SALVATORE URI Diagnosis Discharge Diagnosis (1) Contamination of blood culture: Status: Acute Code(s): R79.9 - Abnormal finding of blood chemistry, unspecified Plan #Syncope Patient apparently passed out once coughing at home. It was a transient syncope so may have been a vasovagal syncope. She has been falling frequently at home and says she had a relative test positive for COVID recently. She is on room air. PT OT on board. Fall precautions. 2D echo showed EF of 55% and normal ventricular size and systolic function. No regional wall motion abnormalities noted. Check orthostatics. Hydrate gently with IV fluids. CT of the brain showed no acute intracranial pathology. #Debility and weakness Patient has been having nausea and some diarrhea as well and also had sick contacts with persistent nasal congestion and cough. Chest x-ray showed no evidence of pneumonia respiratory panel is negative. Supportive care with fluids and breathing treatments bronchodilators as well as cough syrup. Preliminary blood cultures growing gram-positive cocci in clusters Started on IV vancomycin pending speciation. #Gram-positive bacteremia Preliminary blood cultures growing gram-positive cocci in 1 out of 2 samples, and clusters as above. Started on IV vancomycin. Awaiting final cultures. Consult ID. 2D echo done today showed no evidence of vegetation #SALVATORE: improving. Cr is down to 1.91 from 2.33 on admission. Continue hydration with iVF. #Hypokalemia: Resolved with replacement. #History of CAD s/p stents: On Brilinta and Eliquis. BP meds held due to hypotension #Hypertension: BP better today remain losartan and Coreg were held on admission due to hypotension. #Hypothyroidism: On Synthroid #Type 2 diabetes mellitus: Lantus resumed at a lower dose due to patient's poor p.o. intake. Insulin sliding scale. Accu-Cheks ACHS. When oral intake improves will resume full dose of long-acting insulin #Paroxysmal A-fib. Rate controlled. Carvedilol held due to hypotension. On Eliquis #History of bipolar disorder: On Eliquis #History of bipolar disorder: On Depakote DVT prophylaxis: Not indicated patient already on Eliquis. Medications at Discharge Home Medications lancets #300 ea 01/24/23 nitroglycerin 0.4 mg sublingual tablet (Nitrostat) 0.4 mg sublingual Q5-15M PRN chest pain #25 tabs 10/04/23 blood sugar diagnostic (OneTouch Verio test strips) #300 ea 11/29/23 blood-glucose meter (OneTouch Verio Flex Meter) #1 ea 11/29/23 pen needle, diabetic 32 gauge x 5/32 (BD Ultra-Fine Sophia Pen Needle) #400 ea 02/27/24 allopurinol 100 mg tablet 100 mg PO QHS gout #90 tabs 03/18/24 nystatin 100,000 unit/gram topical powder (Nyamyc) 1 applic topical BID PRN for infectious disease #30 GMS 03/19/24 flash glucose sensor (FreeStyle Marilyn 14 Day Sensor kit) #6 ea 03/21/24 handicap placard #1 ea 04/16/24 carvedilol 6.25 mg tablet 6.25 mg PO BID blood pressure #180 tabs 06/06/24 ticagrelor 90 mg tablet 90 mg PO BID anti platelet #180 tabs 08/21/24 atorvastatin 80 mg tablet 80 mg PO QHS Hyperlipidemia #100 tabs 09/03/24 colestipol 1 gram tablet 1 g PO DAILY cholesterol #100 tabs 09/03/24 albuterol sulfate 90 mcg/actuation aerosol inhaler 2 puff inhalation Q6H PRN Wheezing #8.5 grams 09/05/24 apixaban 5 mg tablet (Eliquis) 5 mg PO BID blood thinner #180 tabs 09/11/24 icosapent ethyl 1 gram capsule (Vascepa) 2 g (2 x 1 gram) PO BID cholesterol #120 caps 10/07/24 losartan 50 mg tablet 50 mg PO DAILY blood pressure #84 TABLETS 10/21/24 divalproex 125 mg capsule,delayed release sprinkle 125 mg PO BID bipolar #56 caps 11/12/24 insulin glargine 100 unit/mL (3 mL) subcutaneous pen (Lantus Solostar U-100 Insulin) 50 unit (0.5 mL) subcut QHS diabetes #45 mL 12/16/24 rabeprazole 20 mg tablet,delayed release 20 mg PO DAILY for acid reflux #30 TABLETS 12/17/24 dulaglutide 0.75 mg/0.5 mL subcutaneous pen injector (Trulicity) 0.75 mg (0.5 mL) subcut QWEEK #2 mL 01/06/25 dulaglutide 0.75 mg/0.5 mL subcutaneous pen injector (Trulicity) 0.75 mg (0.5 mL) subcut QWEEK diabetes #2 mL 01/06/25 amitriptyline 50 mg tablet 50 mg PO QHS sleep #30 tabs 01/24/25 levothyroxine 112 mcg tablet 112 mcg PO .monday to monday for disorder of thyroid gland #25 TABLETS 01/24/25 insulin lispro 100 unit/mL subcutaneous pen (Humalog KwikPen (U-100) Insulin) 25 unit subcut TID diabetes 02/05/25 Hospital Course Operations None Procedures None Summary of Care Provided Minutes Spent on Discharge: 45 Hospital Course: Patient is a 69-year-old female with past medical history as outlined was admitted to the ED on 02/05/2025 with complaint of cough, generalized weakness and loss of consciousness. His sister was diagnosed with COVID about 12 days prior to admission. She admitted to fatigue and change in taste as well as weakness and cough with multiple falls due to weakness. She denied hitting her head. On admission CT of the brain showed no acute intracranial pathology and chest x-ray did not show any acute cardiopulmonary pathology. Urinalysis showed no evidence of UTI. Labs did show evidence of SALVATORE with creatinine of 2.33. She was also hypotensive with blood pressure of 85/57. Lactic acid was also increased at 2.9. She was admitted and managed for SALVATORE and debility and weakness as well as lactic acidosis likely due to dehydration. She was hydrated with IV fluids and admitted. Her creatinine improved and trended down. Blood cultures came back positive for Staph epidermidis in 1 out of 2 samples. She was started on IV vancomycin initially and ID was consulted. ID recommended discontinuing the antibiotics. She had 2D echo done which showed EF of 55% with normal ventricular size and systolic function and no regional wall motion abnormalities. She did not test positive for COVID. Her hypotension improved and she felt better. She was able to tolerate a diet and did well. She was discharged home on 02/07/2025. She is follow-up with her primary care doctor within 1 to 2 weeks. Patient seen and examined prior to discharge. She had no complaints and had an uneventful night. Review of systems otherwise negative. Labs and vitals reviewed. Home medication reviewed and reconciled. Physical Exam Const alert and oriented x3 Constitutional Narrative: looks much better today General Appearance: cooperative and comfortable HEENT normocephalic, head/scalp atraumatic and hearing grossly normal bilaterally Mouth: oral and palatal mucosa normal Eyes EOMs intact bilaterally and conjunctivae normal Neck supple and no JVD Lymph Lymphatic: no lymphedema noted Resp Resp Narrative: mildly diminished breath sounds bibasally, no wheezes or crackles. On room air. Cardio regular rate, regular rhythm, S1 normal heart sound, S2 normal heart sound and no murmurs GI normal to inspection, nondistended, normoactive bowel sounds, soft to palpation, non-tender and non-distended Extremity normal to inspection, full ROM, normal capillary refill, no clubbing, cyanosis or edema and no calf tenderness Skin Skin Narrative: superficial excoriations on her face, due to her picking on her skin on her face. Neuro oriented x3, moves all extremities, no focal motor deficits and no sensory deficits noted Sensorium / Orientation: awake and alert Motor Exam: strength 5/5 throughout Psych thought process normal and cooperative Weight / BMI Weight Weight: 151 lb 10.848 oz Body Mass Index (BMI) 30.6 ABG / Lab / Microbiology Data 02/07/25 06:10 02/07/25 06:10 Laboratory: Laboratory Results - last 24 hr 02/06/25 16:37: POC Glucose 229 H 02/06/25 21:28: POC Glucose 196 H 02/07/25 06:10: WBC 6.4, RBC 3.49 L, Hgb 9.5 L, Hct 30.5 L, MCV 87.4, MCH 27.2, MCHC 31.1 L, RDW Std Deviation 57.2 H, RDW Coeff of Yaw 17.9 H, Plt Count 471 H, MPV 8.9, Immature Gran % (Auto) 0.500, Neut % (Auto) 63.0, Lymph % (Auto) 21.0, Parke % (Auto) 10.3 H, Eos % (Auto) 4.4, Baso % (Auto) 0.8, Absolute Neuts (auto) 4.0, Absolute Lymphs (auto) 1.34, Nucleated RBC % 0, Sodium 133, Potassium 4.0, Chloride 95 L, Carbon Dioxide 21.7, Anion Gap 16 H, BUN 19, Creatinine 1.33 H, Estim Creat Clear Calc 35.04 L, Est GFR (MDRD) Non-Af 44 L, BUN/Creatinine Ratio 14.1, Glucose 240 H, Calcium 10.1, POC Glucose 225 H 02/07/25 10:51: POC Glucose 242 H Microbiology: Microbiology 02/05/25 14:35 Blood Culture (Wb) - Anticubital Left Blood Culture - Preliminary No growth in 48 hours. 02/05/25 15:10 Blood Culture (Wb) - Anticubital Left Bacteria Detection (PCR) - Final Coag Negative Staph 02/05/25 15:10 Blood Culture (Wb) - Anticubital Left Blood Culture - Preliminary Coag Negative Staph 02/05/25 20:15 Mucosa - Nasopharyngeal Respiratory Panel (PCR) - Final 02/05/25 13:07 Mucosa - Nose SARS-CoV-2, Influenza & RSV (PCR) - Final Radiography Diagnostic Testing: Radiology Impression Echocardiogram 02/05/25 18:02 Interpretation Summary Normal LV size. Left ventricular systolic function is normal. The left ventricular ejection fraction is 55 %. Mean aortic valve gradient 8 mmHg. Contrast injection was performed. Ordering Physician: Carol Petty Performed By: Tru Garrett RCS D/C Instructions Discharge Activity: Return to Normal Activity Weight Bearing Status: Weight bearing as tolerated Call your doctor if you observe: Fever of 101 or Higher, Shortness of breath, Dizziness, Swelling in the ankles, Chest pain and Increased palpitations (irregular heartbeat) DC O2, CPAP, BIPAP Needs Home O2 Discharge instructions: No DC home with Oxygen: No Meaningful Use Info Meaningful Use Meaningful Use Diagnoses (Choose all that apply): None applicable Discharge Plan Admission Admit Date/Time: 02/05/25 17:03 Primary Reason for Your Visit: syncope, debility and weakness Attending Provider: Chantel Pineda Primary Care Provider: Denise Uribe Consulting Providers: Carol Petty; Papito Long Instructions Patient Instructions: Diagnosing Syncope, Dizziness Fainting Causes Discharge Orders/Prescriptions Prescriptions: Continued (DME) lancets Misc See Rx Instructions .ROUTE .MEDSUPPLY Qty: 300 0RF Rx Instructions: Check 3 times a day and as needed Trulicity 0.75 mg/0.5 mL pen injector 0.75 mg subcut QWEEK Qty: 2 3RF Trulicity 0.75 mg/0.5 mL pen injector 0.75 mg subcut QWEEK Qty: 2 0RF insulin lispro [Humalog KwikPen Insulin] 100 unit/mL insulin pen 25 unit subcut TID MDD 80 Rx Instructions: plus sliding scale nitroglycerin [Nitrostat] 0.4 mg tablet, sublingual 0.4 mg sublingual Q5-15M PRN (Reason: chest pain) Qty: 25 3RF Rx Instructions: do not exceed 3 doses per episode (DME) OneTouch Verio test strips Strip See Rx Instructions .ROUTE .MEDSUPPLY Qty: 300 3RF Rx Instructions: Check 3 times a day and as needed (DME) blood-glucose meter [OneTouch Verio Flex meter] [facility] [place] See Rx Instructions .Route Qty: 1 0RF Rx Instructions: As directed (DME) pen needle, diabetic [BD Ultra-Fine Sophia Pen Needle] 32 gauge x 5/32 needle See Rx Instructions .Route Qty: 400 3RF Rx Instructions: qid allopurinol 100 mg tablet 100 mg PO QHS Qty: 90 11RF nystatin [Nyamyc] 100,000 unit/gram powder 1 applic topical BID PRN (Reason: for infectious disease) Qty: 30 11RF (DME) FreeStyle Marilyn 14 Day Sensor Kit See Rx Instructions .ROUTE .MEDSUPPLY Qty: 6 3RF Rx Instructions: As directed (DME) handicap placard See Rx Instructions .ROUTE .MEDSUPPLY Qty: 1 0RF Rx Instructions: Length of time: 1 years Diagnosis: Impaired physical mobility Z74.09 carvedilol 6.25 mg tablet 6.25 mg PO BID Qty: 180 3RF Rx Instructions: must administer with a meal/food ticagrelor 90 mg tablet 90 mg PO BID Qty: 180 3RF atorvastatin 80 mg tablet 80 mg PO QHS Qty: 100 1RF Rx Instructions: cholesterol colestipol 1 gram tablet 1 g PO DAILY Qty: 100 1RF albuterol sulfate 90 mcg/actuation HFA aerosol inhaler 2 puff INHALATION Q6H PRN (Reason: Wheezing) Qty: 8.5 1RF Eliquis 5 mg tablet 5 mg PO BID Qty: 180 3RF icosapent ethyl [Vascepa] 1 gram capsule 2 g PO BID Qty: 120 5RF losartan 50 mg tablet 50 mg PO DAILY Qty: 84 0RF divalproex 125 mg capsule, delayed rel sprinkle 125 mg PO BID Qty: 56 1RF insulin glargine [Lantus Solostar U-100 Insulin] 100 unit/mL (3 mL) insulin pen 50 unit subcut QHS Qty: 45 1RF rabeprazole 20 mg tablet,delayed release (DR/EC) 20 mg PO DAILY Qty: 30 0RF levothyroxine 112 mcg tablet 112 mcg PO .monday to monday Qty: 25 0RF amitriptyline 50 mg tablet 50 mg PO QHS Qty: 30 0RF Referrals / Follow Up: Denise Uribe MD [Primary Care Provider, Internal Medicine] - Within 1 Week Disposition Disposition (needs filled in before D/C Order can be placed): Home, Self Care Charges/Coding Visit Charges Inpatient E&M: 43848 Disch Hosp >30min
--- NOTE | 2025-02-07 15:07 | PHA.DC.MR.R ---
Pharmacy [place] Med Reconciliation Pharmacy Service has performed discharge medication reconciliation for this patient. The patient's discharge medication list was reviewed for discrepancies and discrepancies were resolved. Medications at Discharge Home Medications lancets #300 ea 01/24/23 nitroglycerin 0.4 mg sublingual tablet (Nitrostat) 0.4 mg sublingual Q5-15M PRN chest pain #25 tabs 10/04/23 blood sugar diagnostic (OneTouch Verio test strips) #300 ea 11/29/23 blood-glucose meter (OneTouch Verio Flex Meter) #1 ea 11/29/23 pen needle, diabetic 32 gauge x 5/32 (BD Ultra-Fine Sophia Pen Needle) #400 ea 02/27/24 allopurinol 100 mg tablet 100 mg PO QHS gout #90 tabs 03/18/24 nystatin 100,000 unit/gram topical powder (Nyamyc) 1 applic topical BID PRN for infectious disease #30 GMS 03/19/24 flash glucose sensor (FreeStyle Marilyn 14 Day Sensor kit) #6 ea 03/21/24 handicap placard #1 ea 04/16/24 carvedilol 6.25 mg tablet 6.25 mg PO BID blood pressure #180 tabs 06/06/24 ticagrelor 90 mg tablet 90 mg PO BID anti platelet #180 tabs 08/21/24 atorvastatin 80 mg tablet 80 mg PO QHS Hyperlipidemia #100 tabs 09/03/24 colestipol 1 gram tablet 1 g PO DAILY cholesterol #100 tabs 09/03/24 albuterol sulfate 90 mcg/actuation aerosol inhaler 2 puff inhalation Q6H PRN Wheezing #8.5 grams 09/05/24 apixaban 5 mg tablet (Eliquis) 5 mg PO BID blood thinner #180 tabs 09/11/24 icosapent ethyl 1 gram capsule (Vascepa) 2 g (2 x 1 gram) PO BID cholesterol #120 caps 10/07/24 losartan 50 mg tablet 50 mg PO DAILY blood pressure #84 TABLETS 10/21/24 divalproex 125 mg capsule,delayed release sprinkle 125 mg PO BID bipolar #56 caps 11/12/24 insulin glargine 100 unit/mL (3 mL) subcutaneous pen (Lantus Solostar U-100 Insulin) 50 unit (0.5 mL) subcut QHS diabetes #45 mL 12/16/24 rabeprazole 20 mg tablet,delayed release 20 mg PO DAILY for acid reflux #30 TABLETS 12/17/24 dulaglutide 0.75 mg/0.5 mL subcutaneous pen injector (Trulicity) 0.75 mg (0.5 mL) subcut QWEEK #2 mL 01/06/25 dulaglutide 0.75 mg/0.5 mL subcutaneous pen injector (Trulicity) 0.75 mg (0.5 mL) subcut QWEEK diabetes #2 mL 01/06/25 amitriptyline 50 mg tablet 50 mg PO QHS sleep #30 tabs 01/24/25 levothyroxine 112 mcg tablet 112 mcg PO .monday to monday for disorder of thyroid gland #25 TABLETS 01/24/25 insulin lispro 100 unit/mL subcutaneous pen (Humalog KwikPen (U-100) Insulin) 25 unit subcut TID diabetes 02/05/25
[2025-02-07 16:08] VITALS: BP 142/65; PULSE 75; RESP 12; TEMP 36.9; O2SAT 95
== END 2025-02-07 15:42 | disposition home or self-care (01) | DRG 683 ==
LOC: ED 16:31 → PCU 17:37
PROVIDERS: Admitting Provider Internal Medicine; Emergency Provider Surgery; PCP Internal Medicine; Visit Provider Student in an Organized Health Care Education/Training Program
DX: N17.9 Acute kidney failure, unspecified (principal); E87.1 Hypo-osmolality and hyponatremia; R78.81 Bacteremia; E11.22 Type 2 diabetes mellitus with diabetic chronic kidney disease; E03.9 Hypothyroidism, unspecified; B96.89 Other specified bacterial agents as the cause of diseases classified elsewhere; I48.0 Paroxysmal atrial fibrillation; E86.0 Dehydration; F31.9 Bipolar disorder, unspecified; I10 Essential (primary) hypertension; E11.42 Type 2 diabetes mellitus with diabetic polyneuropathy; E87.6 Hypokalemia; I25.10 Atherosclerotic heart disease of native coronary artery without angina pectoris; E78.5 Hyperlipidemia, unspecified; Z79.4 Long term (current) use of insulin; M10.9 Gout, unspecified; K21.9 Gastro-esophageal reflux disease without esophagitis; F17.210 Nicotine dependence, cigarettes, uncomplicated; I95.9 Hypotension, unspecified; R54 Age-related physical debility; Z79.02 Long term (current) use of antithrombotics/antiplatelets; Z79.01 Long term (current) use of anticoagulants; Z79.85 Long-term (current) use of injectable non-insulin antidiabetic drugs; Z79.899 Other long term (current) drug therapy; Z95.5 Presence of coronary angioplasty implant and graft; Z90.710 Acquired absence of both cervix and uterus; Z83.3 Family history of diabetes mellitus; Z82.49 Family history of ischemic heart disease and other diseases of the circulatory system; R29.6 Repeated falls; Z90.49 Acquired absence of other specified parts of digestive tract
CPT/HCPCS: 36415; 70450; 71046; 72125; 80048; 80053; 81001; 82962; 83605; 83735; 83880; 84484; 85025; 85379; 85610; 85730; 87040; 87149; 87631; 87633; 93005; 93306; 94640; 97162; 97166; 99285; P9612; Q9957; A4216; C8929; J0612; J2405

== ENCOUNTER → 2025-02-06 06:39 | Outpatient (REF) | payer SELFPAY ==
[2020-06-04 12:24] VITALS: BMI 26.4
--- OUTSIDE RECORDS SUMMARY | 2025-02-06 06:45 | XMS RPT_ITS | CCD ---
Author Organization [facility] Care Team Providers Care Hvac Controls Technician Name Role Phone NO REFERRING DR Unavailable [...] SILVIA Ulrich Attending Provider [phone] Octavio SAIL MAKER, SAIL MAKER-C Daina Attending Provider Dr. Adelina Farley Attending Provider Dr. Bravo Dominique Attending Provider Dr. Jonathan Polk Emergency Provider Dr. Carrillo Buckley Attending Provider Dr. Carrillo Buckley Admit Provider Dr. Carrillo Buckley Other Provider Dr. Franck Butler Attending Provider 1([facility] )[phone] Dr. Franck Butler Other Provider 1([facility])[phone] Dr. Gwendolyn Busby Other Provider Dr. Gwendolyn Busby Attending Provider Danny KRAMER, WILLIAMS-C Devi Attending Provider [phone] Dr. Pat Bennett Primary Care Provider Dr. Pat Bennett Referring Provider 1([facility]) Octavio KRAMER, SAIL MAKER-C Daina Referring Provider Dr. Gwendolyn Busby Referring Provider 1([facility])[phone] Jax Ford Attending Provider [place], [place] Kelsi Attending Provider Unavailab Dr. Pat Mccoy Primary Care Provider Dr. Pat Bennett Referring Provider 1([facility])[phone] SILVIA Ulrich Attending Provider 1([facility])[phone] SERVANDO CLAY Attending Unavailable Pending, [...] Pat Bennett Referring Provider [phone] Danny KRAMER, SAIL MAKER-Marlen Bellamy Attending Provider [phone] Dr. Pat Bennett [...] Unavailable Dr. Pat Bennett Referring Provider Delgado SAIL MAKER, SAIL MAKER-C Devi Attending Provider Dr. Pat Bennett Primary Care Provider Dr. Sanju Hernandez Emergency Provider Dr. Daljit Mg Admit Provider Dr. Daljit Mg Other Provider Dr. Dior Alva Other Provider Dr. Carrillo Buckley Attending Provider Dr. Carrillo Buckley Other Provider Dr. Pat Bennett Referring Provider Delgado SAIL MAKER, SAIL MAKER-C Devi Primary Care Provider Delgado SAIL MAKER, SAIL MAKER-C Devi Referring Provider Dr. Seven Garcia Attending Provider Delgado SAIL MAKER, SAIL MAKER-C Devi Primary Care Provider Delgado SAIL MAKER, SAIL MAKER-C Devi Referring Provider Dr. Seven Garcia Attending Provider Dr. Pat Bennett Referring Provider Delgado SAIL MAKER, SAIL MAKER-C Devi Attending Provider Delgado SAIL MAKER, SAIL MAKER-C Devi Primary Care Provider Delgado SAIL MAKER, SAIL MAKER-C Devi Referring Provider Dr. Denise Uribe Attending Provider Jojo, Dr. Denise Primary Care Provider TAMMY Belle Attending Provider Dr. Seven Garcia Attending Provider Danny SAIL MAKER, SAIL MAKER-C Devi Referring Provider [phone] Dr. Denise Uribe [...] Rosalie LOPEZ, Dr. Jailyn Mendez Admit Provider [phone] Rosalie LOPEZ, Dr. Jailyn Mendez Other Provider Carrie LOPEZ, Dr. Juárez Other Provider Efren LOPEZ, Dr. Luevano Attending Provider Unavailemelina Schwartz MD, Dr. Luevano Other Provider Unavailable Carrie LOPEZ, Dr. Juárez Attending Provider [phone] Efren LOPEZ, Dr. Luevano Referring Provider Unavailemelina Hernandez MD, Dr. Bills Emergency Provider Jojo LOPEZ, Dr. Walker Primary Care Provider [phone] David LOPEZ, Dr. Bills Attending Provider Jojo LOPEZ, Dr. Walker Referring Provider Serg SAIL MAKER-C, Seth Attending Provider [phone] Serg SAIL MAKER-C, Seth Referring Provider [phone] Bassem Diamond Admitting Unavailable Bassem Diamond Consulting Unavailable [place], Denise Primary Care Unavailable Jailyn Wiggins Attending [...] Ulrich Attending Unavailable Seth Ulrich Referring Unavailable [place], Denise Attending Unavailable Jojo, Denise Referring Unavailable [place], Denise Primary Care Unavailable [place], Denise Attending Unavailable [place], Denise Referring Unavailable Jojo, Denise Primary Care Unavailable Davie Clayton Attending Unavailable Harry Iniguez Referring Unavailable Bassem Diamond Attending Unavailable Jojo, Denise Primary Care Unavailable Mel Beaver Attending Unavailabl e Humaira Belle Referring Unavail able Humaira Belle Consulting Unavail able Harry Iniguez Attending Unavailable Harry Iniguez Consulting Unavailable [place], Denise Primary Care Unavailable Seth Ulrich Attending Unavailable Jojo, Denise Referring Unavailable Desiree Penny Attending Unavailable [place], Denise Primary Care Unavailable Jojo, Denise Referring Unavailable Jojo, Denise Attending Unavailable Jojo, Denise Primary Care Unavailable Jojo, Denise Referring Unavailable [place], Denise Primary Care Unavailable Jojo, Denise Referring Unavailable Humaira Belle Attending Unavail able Jojo, Denise Primary Care Unavailable Jojo, Denise Referring Unavailable Seth Ulrich Attending Unavailable Jojo, Denise Attending Unavailable Jojo, Denise Referring Unavailable Jojo, Denise Primary Care Unavailable Bassem Diamond Referring Unavailable [place], Denise Primary Care Unavailable Hernando Colón Attending Unavailable Jojo, Denise Primary Care Unavailable Jb Marcelino Attending Unavailable Humaira Belle Referring Unavail able [place], Denise Primary Care Unavailable Sanju Hernandez Attending Unavailable Jojo, Denise Primary Care Unavailable Seth Ulrich Referring Unavailable Seth Ulrich Attending Unavailable Jojo, Denise Primary Care Unavailable Jamaal Velasquez Referring Unavailable Jamaal Velasquez Attending Unavailable Jojo, Denise Primary Care Unavailable Humaira Belle Attending Unavail able Humaira Belle Referring Unavail able Franck Butler Consulting Unavailable [place], Denise Primary Care Unavailable White, Jailyn L [...] L Consulting Unavailable Desiree Penny Referring Unavailable [place], Denise Primary Care Unavailable Desiree Penny Attending [...] Referring Unavail able Jailyn Wiggins Attending Unavailable [place], Denise Primary Care Unavailable Robby Kirkpatrick Attending Unavailable Jojo LOPEZ, Dr. Walker Primary Care Physician [phone] David LOPEZ, Dr. Bills Attending Physician Dr. Sanju Hernandez MD Emergency Department Physici an Serg KRAMER-C, Seth [facility] Emergency Departmen t Physician Jovanny LOPEZ, Dr. Medina Admitting Physician Dr. Carol Petty MD Attending Physician Allergies Allergy Classification Reported Allergen(s) Allergy Type Date of Onset Reaction(s) Facility (1 source) pantoprazole; Translations: [PROTONIX] Drug Allergy [facility] Repository (20 sources) tomato allergenic extract; Translations: [TOMATO] Drug Allergy 04-18-20 18 Itching [facility] Repository (20 sources) DULoxetine Drug Allergy 02-27-20 18 [facility] Work Phone: (11 sources) DULoxetine; Translations: [Cymbalta] Drug Allergy Hypertension [facility] [place] Work Phone: (9 sources) Tomatoes Allergy to substance (finding) [facility] [place] Work Phone: (20 sources) DULoxetine; Translations: [DULOXETINE] Drug Allergy 02-27-20 Hives, Other (See Comments), Itching, Unknown [facility] (8 sources) tomato allergenic extract; Translations: [TOMATO (SOLANUM LYCOPERSICUM)] Drug Allergy 11-27-19 Itching [facility] (8 sources) Other; Translations: [OTHER] Propensity to adverse reactions 04-18-20 Unknown [facility] (20 sources) Isosorbide; Translations: [isosorbide] Drug Allergy 12-11-19 Headache and chest pain, Other [facility] (20 sources) Adhesive Tape; Translations: [adhesive tape] Propensity to adverse reactions 03-28-20 Rash [facility] (15 sources) diphenhydrAMINE Drug Allergy 11-18-19 other [facility] (2 sources) ozempic Allergy to substance 11-18-19 Diarrhea [facility] (13 sources) semaglutide Drug Allergy 03-31-20 Diarrhea [facility] (8 sources) Environmental Allergies: Uncoded; Translations: [Environmental Allergies: Uncoded] Allergy to substance 07-25-19 [facility] (1 source) diphenhydrAMINE Drug Allergy 01-07-20 [facility] Repository (1 source) DULoxetine Drug Allergy 01-07-20 [facility] Repository (1 source) semaglutide Drug allergy (disorder) 01-07-20 [facility] Repository Medications Current Medications Medication Drug Class(es) [...] unspecified type , 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 0 Active [facility] levothyroxine 50 MCG Tab tablet [...] unspecified type , 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 , jail current use of non-steroidal anti-inflammatories (NSAID) , [...] (NORCO) 5-325 MG per tablet 1-2 tablet [id number] 200 actuat albuter ol 0.09 mg/actuat metered [...] 2021 12:00am January 14, 2022 1:06pm amylase [id number] unt / lipase 78393 unt / protease 35399 unt delayed release oral capsule (20 sources) Start: 07-16-2020 End: 07-31-2020 Start: 07-16-2020 End: 07-31-2020 Start: 02-20-2020 End: 07-31-2020 take [id number] capsules by mouth four times daily at mealtime Hhhhaz-Iklmdaep-Fnldbnj (Creon) 24,000-76,000 -120,000 unit capsule,delayed release(DR/EC) Discontinued 2 CAP PO .qid July 16, 2020 1:00am July 31, 2020 1:07pm administer with meals and/or snacks amylases 443235 unt / endopeptidases 70866 unt / lipase 25323 unt delayed release oral capsule (1 source) Start: 02-20-2020 take 2 capsules by mouth four times daily Creon [id number] UNIT Oral Capsule Delayed Release Particles TAKE [...] sources) Tetracycline-class Drug Start: 09-19-2024 End: 11-15-2024 [id number] 0.3 ml EPINEPHrine 1 mg/ml auto-injector (16 [...] 0 Active take 2 tablets by mo mth three times daily gabapentin 100 MG Cap [...] Quantity: 0 Refills: 0 Ordered: 14-Mar-2022 Allytein, Asfia Generic Substitution Allowed inject 40 [IU] by [...] 1:09pm Start: 10-21-2019 take 2 tablets by [facility] twice daily metFORMIN HCl ER 500 MG Oral Tablet Extended Release 24 Hour TAKE 2 TABLET Twice daily Quantity: 360 Refills: 0 Ordered: 28-May-2020 Yamila Hayden MD Start : 21-Oct-2019 Active Start: 10-21-2019 take 4 tablets by mo [facility] once daily metFORMIN HCl ER 500 [...] 2020 12:00am November 10, 2020 2:58pm Nystatin 257758 UNIT/GM External Powder APPLY 2-3 TIMES DAILY TO AFFECTED AREAS Quantity: 1 Refills: 1 Ordered: 07-Apr-2020 Yamila Hayden MD Active Nystatin 015192 UNIT/GM External Powder APPLY 2-3 TIMES DAILY TO AFFECTED AREAS Quantity: 1 Refills: 1 Yamila Hayden MD 15 GM Bottle Nystatin 084588 UNIT/GM External Cream APPLY 2-3 TIMES DAILY [...] unspecified type , 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 , 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) , [...] day Quantity: 0 Refills: 0 Or[facility]: 14-Mar-2022 [facility] Allowed divalproex 125 M G [...] heart disease (20 sources) Coronary arteriosclerosis in [place] artery; Translations: [Coronary arteriosclerosis] Onset: 1 Chronic [...] 5 07-23-2024 Episodic Esophageal disorders (20 sources) [place]'s esophagus without [...] aftercare (19 sources) Drug therapy finding; Translations: [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] 07-28-2022 Episodic Other aftercare (20 sources) Long-term current use of anticoagulant; Translations: [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] 08-04-2022 Episodic Other aftercare (6 sources) 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; Translations: [Long-term (current) use of anticoagulants] Onset: 3 08-04-2022 Episodic Other aftercare (1 source) 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/antipl atelets; Translations: [jail (current) use of antithrombotics/antipl atelets] Onset: 3 Episodic Other aftercare (1 source) Other prison (current) drug therapy; Translations: [Other prison (current) drug therapy] Onset: 3 Episodic Other [...] respiratory disease (7 sources) Chronic cough; Translations: [[id number] syndrome manifesting as chronic cough] 01-24-2023 Episodic [...] thyroid, unspecified] Onset: Episodic Unclassified (1 source) jail (current) use of oral hypoglycemic drugs; 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: [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] Onset: 7 Unclassified (20 [...] Onset: 5 Episodic Other aftercare (3 sources) 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; Translations: [LANCE CREWMEMBER CURRENT USE OF] Onset: 7 Episodic Other [...] Unclassified (20 sources) Patient encounter status; Translations: [jail current use of non-steroidal anti-inflammatories (NSAID)] Onset: 8 Resolved: 9 02-26-2018 Unclassified (1 source) Bilateral carpal tunnel syndrome Unclassified (19 sources) Tachybradycardia syndrome 01-11-2022 NEGATED: Highlighted row has not occurred!Residual codes; unclassified (20 sources) Disease Episodic Results Test Name Value Interpretation Reference Range Facility Absolute lymphocyte countOrd ered By: Tru Mayer on 02-05-2025 Lymphocytes Auto (Unsp spec) [#/Vol] 1.77 10*3/uL 0.83-4.51 [facility] Activated partial thrombopla stin time (aPTT) in platelet poor plasma by coagulation aOrdered By: Tru Mayer on 09-17-2025 aPTT Coag (PPP) [Time] 28.8 s 24.1-36.2 [facility] Anion gap in Serum or Plasma Ordered By: Tru Mayer on 02-05-2025 Anion gap [Moles/Vol] 14 mmol/L 5-15 [facility] Automated lymphocyte count a s percentage of total leukocytesOrdered By: Tru Mayer on 02-05-2025 Lymphocytes/100 WBC Auto (Unsp spec) 19.0 % 19-41 [facility] BUN/creatinine ratioOrdered By: Tru Mayer on 02-05-2025 Urea nitrogen/Creatinine [Mass ratio] 11.0 mg/mg 10-20 [facility] Basophil percentageOrdered B y: Tru Mayer on 02-05-2025 Basophils/100 WBC (Bld) 0.5 % 0-1 [facility] Bilirubin Test strip Ql (U)O rdered By: Tru Mayer on 02-05-2025 Bilirubin Ql (U) Negative Negative [facility] Bilirubin, totalOrdered By: Tru Mayer on 02-05-2025 Bilirubin [Mass/Vol] 0.27 mg/dL 0.00-1.30 [facility] Carbon dioxide, total [Moles /volume] in Central venous bloodOrdered By: Tru Mayer on 02-05-2025 CO2 [Moles/Vol] 18.3 mmol/L Low 21.0-32.0 [facility] Chloride assayOrdered By: Refugio Mayer on 02-05-2025 Chloride [Moles/Vol] 102 mmol/L 98-108 [facility] Eosinophil percentageOrdered By: Tru Mayer on 02-05-2025 Eosinophils/100 WBC (Bld) 3.3 % 0-5 [facility] Erythrocyte distribution wid th ratioOrdered By: Tru Mayer on 02-05-2025 Erythrocyte distribution width (RBC) [Ratio] 18.3 % High 11.6-14.6 [facility] Erythrocyte distribution wid th standard deviationOrdered By: Tru Robertson on 02-05-2025 Erythrocyte distribution width (RBC) [Ratio] 58.0 fl High 35.1-43.9 [facility] Glomerular filtration rate ( GFR) estimation/1.73 sq m using serum, plasma, or whole bOrdered By: Tru Mayer on 02-05-2025 GFR/1.73 sq M.predicted among non-blacks MDRD (S/P/Bld) [Vol rate/Area] 22 mL/min/{1.73_m2} Low >60 [facility] Glucose measurement at [facility] deOrdered By: Tru Mayer on 02-05-2025 Glucose [Mass/Vol] 173 mg/dL High 74-106 [facility] Hematocrit Auto (Bld) [Volum e fraction]Ordered By: Tru Mayer on 02-05-2025 Hematocrit (Bld) [Volume fraction] 30.7 % Low 37-47 [facility] Hemoglobin measurementOrdere d By: Tru Mayer on 02-05-2025 Hemoglobin (Bld) [Mass/Vol] 9.7 g/dL Low 12.0-15.0 [facility] Immature granulocytes/100 WB C Auto (Bld)Ordered By: Tru Mayer on 02-05-2025 Immature granulocytes/100 WBC (Bld) 0.600 % 0.0-0.9 [facility] Influenza virus A and B and SARS-CoV-2 (COVID-19) and Respiratory syncytial virus RNAOrdered By: Tru Mayer on 02-05-2025 SARS-CoV-2 (COVID-19) RNA JUAN+probe Ql (Unsp spec) [facility] Ketones Test strip Ql (U)Ord ered By: Tru Mayer on 02-05-2025 Ketones Ql (U) Negative Negative [facility] MCV (mean corpuscular volume ) determinationOrdered By: Tru Mayer on 02-05-2025 MCV (RBC) [Entitic vol] 86.5 fL 81-99 [facility] Magnesium measurement (mass/ volume)Ordered By: Tru Mayer on 02-05-2025 Magnesium (Unsp spec) [Mass/Vol] 1.7 mg/dL 1.5-2.2 [facility] Mean corpuscular hemoglobin (MCH) determinationOrdered By: Tru Mayer on 02-05-2025 MCH (RBC) [Entitic mass] 27.3 pg 27.0-32.0 [facility] Monocyte percentageOrdered B y: Tru Mayer on 02-05-2025 Monocytes/100 WBC (Bld) 10.7 % High 0-10 [facility] Mucus LM Ql (Urine sed)Order ed By: Tru Mayer on 02-05-2025 Mucus Ql (Urine sed) 0 SEEN /hpf [facility] Natriuretic peptide.B prohor charo N-Terminal [Mass/volume] in Serum or PlasmaOrdered By: Tru Mayer on 02-05-2025 Natriuretic peptide.B prohormone N-Terminal [Mass/Vol] 194 pg/mL <900 [facility] Neutrophil percentageOrdered By: Tru Mayer on 02-05-2025 Neutrophils/100 WBC (Bld) 65.9 % 47-70 [facility] Nitrite Test strip Ql (U)Ord ered By: Tru Mayer on 02-05-2025 Nitrite Ql (U) Negative Negative [facility] No Panel InformationOrdered By: Tru Mayer on 02-05-2025 17 U/L <32 [facility] Platelet countOrdered By: Refugio Mayer on 02-05-2025 Platelets (Bld) [#/Vol] 477 10*3/uL High 150-450 [facility] Potassium measurement (mass/ volume)Ordered By: Tru Mayer on 02-05-2025 Potassium (Unsp spec) [Mass/Vol] 3.2 mmol/L Low 3.3-5.1 [facility] Protein Test strip Ql (U)Ord ered By: Tru Mayer on 02-05-2025 Protein Ql (U) 100 mg/dl High Negative [facility] Prothrombin timeOrdered By: Tru Mayer on 02-05-2025 PT Coag (PPP) [Time] 15.9 s High 11.7-14.9 [facility] RBC Auto (Bld) [#/Vol]Ordere d By: Tru Mayer on 02-05-2025 RBC (Bld) [#/Vol] 3.55 10*6/uL Low 4.2-5.4 [facility] Serum creatinine measurement (mass/volume)Ordered By: Tru Mayer on 02-05-2025 Creatinine [Mass/Vol] 2.33 mg/dL High 0.70-1.20 [facility] Serum globulin measurementOr dered By: Tru Mayer on 02-05-2025 Globulin (S) [Mass/Vol] 2.1 g/dL Low 2.2-4.2 [facility] Serum glucose measurement (m ass/volume)Ordered By: Tru Mayer on 02-05-2025 Glucose [Mass/Vol] 155 mg/dL High 70-99 [facility] Serum or plasma alanine reese otransferase (ALT) measurementOrdered By: Tru Mayer on 02-05-2025 ALT [Catalytic activity/Vol] 17 U/L <35 [facility] Serum or plasma albumin jamey urement (mass/volume)Ordered By: Tru Robertson on 02-05-2025 Albumin [Mass/Vol] 3.1 g/dL Low 3.4-4.8 [facility] Serum or plasma albumin/glob ulin mass ratioOrdered By: Tru Mayer on 02-05-2025 Albumin/Globulin [Mass ratio] 1.4 {ratio} 0.9-2.4 [facility] Serum or plasma alkaline osman sphatase measurementOrdered By: Tru Mayer on 02-05-2025 ALP [Catalytic activity/Vol] 84 U/L 35-104 [facility] Serum or plasma calcium jamey urement (mass/volume)Ordered By: Tru Robertson on 02-05-2025 Calcium [Mass/Vol] 6.8 mg/dL Low 7.6-11.0 [facility] Serum or plasma urea nitroge n measurement (mass/volume)Ordered By: Tru Mayer on 02-05-2025 Urea nitrogen [Mass/Vol] 26 mg/dL High 4-19 [facility] Sodium levelOrdered By: Jairon Mayer on 02-05-2025 Sodium [Moles/Vol] 135 mmol/L 133-145 [facility] Squamous epithelial cells de tection in urine sediment by light microscopyOrdered By: Tru Mayer on 02-05-2025 Epithelial cells.squamous LM Ql (Urine sed) 0 SEEN /hpf 5-10 [facility] Total proteinOrdered By: Rhys Mayer on 02-05-2025 Protein [Mass/Vol] 5.2 g/dL Low 5.9-8.4 [facility] Troponin T.cardiac [Mass/vol ume] in Serum or Plasma by High sensitivity methodOrdered By: Tru Mayer on 02-05-2025 Troponin T.cardiac High sensitivity method [Mass/Vol] 32 ng/L High <14 [facility] Troponin T.cardiac High sensitivity method [Mass/Vol] 35 ng/L High <14 [facility] Urine clarityOrdered By: Rhys Mayer on 02-05-2025 Clarity (U) Clear Clear [facility] Urine color determinationOrd ered By: Tru Mayer on 02-05-2025 Color (U) Yellow Yellow [facility] Urine glucose detectionOrder ed By: Tru Mayer on 02-05-2025 Glucose Ql (U) 1000 mg/dl High Normal [facility] Urine leukocyte esterase det ection by dipstickOrdered By: Tru Mayer on 02-05-2025 Leukocyte esterase Test strip Ql (U) Negative Negative [facility] Urine pHOrdered By: Tru Neal on 02-05-2025 pH (U) 5.0 [pH] 5.0 - 8.0 [facility] Urine sediment bacteria coun t by microscopy (number/high power field)Ordered By: Tru Mayer on 02-05-2025 Bacteria LM.HPF (Urine sed) [#/Area] 0 /[HPF] None Seen [facility] Urine specific gravity measu rementOrdered By: Tru huberAilyn on 02-05-2025 Specific gravity (U) [Rel density] 1.020 1.002-1.03 0 [facility] Urine urobilinogen measureme ntOrdered By: [facility] JohnstonDarielAilyn on 02-05-2025 Urobilinogen Ql (U) Normal mg/dl Normal [facility] White blood cell (WBC) count Ordered By: [facility] JohnstonDarielAilyn on 02-05-2025 WBC (Bld) [#/Vol] 9.3 10*3/uL 4.4-11.0 [facility] White blood cell countOrdere d By: [facility] on 02-05-2025 White blood cell count 0-5 SEEN /hpf 0-5 [facility] Calculated very low density lipoprotein (VLDL) cholesterol measurementOrdered By: Seth Ulrich on 01-06-2025 Calculated very low density lipoprotein (VLDL) cholesterol measurement 37 mg/dL 5-40 [facility] Endocrinology Visit Reporton 01-06-2025 Endocrinology Visit Report Normal [facility] LDL calc ser/plasOrdered By: Seth Ulrich on 01-06-2025 Cholesterol in LDL [Mass/Vol] 77 mg/dL [facility] Lipid Profileon 01-06-2025 CHOL:HDL 2.80 Normal [facility] Comment on above: Performed By: #### L 502.0250, L500.4100, L501.9520, L506.0400, L506.1001 ####[facility] [id number] [place], [place], [id number] Cholesterol [Mass/Vol] 178 mg/dL Normal <=200 [facility] Comment on above: Result Comment: Chol esterol level, Desirable <200 mg/dLBorderline high cholesterol 200-239 mg/dLHigh cholesterol >=240 mg/dLRecommendations of the NCEP Adult Treatment Panel for thefollowing risk-cutoff thresholds for the [place] Americanpulation. Performed By: #### L 502.0250, L500.4100, L501.9520, L506.0400, L506.1001 ####[facility] [id number] [place], [address] Cholesterol in HDL [Mass/Vol] 64 mg/dL Normal [facility] Comment on above: Result Comment: Mamie onal Cholesterol Education Program (NCEP) guidelines:<40 mg/dL: Low HDL-cholesterol (major risk factor for CHD)>= 60 mg/dL: High HDL-cholesterol (negative risk factor forCHD)HDL-cholesterol is affected by a number of factors, e.g.smoking, exercise, hormones, sex and age. Performed By: #### L 502.0250, L500.4100, L501.9520, L506.0400, L506.1001 ####[facility] [id number] [place], [address] Cholesterol in LDL [Mass/Vol] 77 mg/dL Normal [facility] Comment on above: Result Comment: Bord qrasaj=799-876 mg/dL Higher Nzhd=926 mg/dL or greaterFriedwald Equation for LDL-C Performed By: #### L 502.0250, L500.4100, L501.9520, L506.0400, L506.1001 ####[facility] [id number] [place], [address] Cholesterol in VLDL [Mass/Vol] 37 mg/dL Normal 5-40 [facility] Comment on above: Performed By: #### L 502.0250, L500.4100, L501.9520, L506.0400, L506.1001 ####[facility] [address] [place], [address] Triglyceride [Mass/Vol] 186 mg/dL Normal [facility] Comment on above: Result Comment: The drugs N-Acetylcysteine and Metamizole may falselydepress this assay.Normal range: <150 mg/dLBorderline High: 150-199 mg/dLHigh: 200-499 mg/dLVery High: >500 mg/dL Performed By: #### L 502.0250, L500.4100, L501.9520, L506.0400, L506.1001 ####[facility] [id number] [place], [place], [id number] Microalb:Creat Ratio,Random URon 01-06-2025 Creatinine [Mass/Vol] 58.00 mg/dL Normal 28.00- 217. 00 [facility] Comment on above: Performed By: #### L 502.0250, L500.4100, L501.9520, L506.0400, L506.1001 ####[facility] [address] [place], [place], [id number] MALB:CREAT 506.9 mg/g CRE High <30 mg/g CRE [facility] Comment on above: Performed By: #### L 502.0250, L500.4100, L501.9520, L506.0400, L506.1001 ####[facility] [address] [place], [place], [id number] MICROALBUMIN,UR 294.0 mg/L Normal <20 mg/L [facility] Comment on above: Performed By: #### L 502.0250, L500.4100, L501.9520, L506.0400, L506.1001 ####[facility] [address] [place], [place], [id number] No Panel InformationOrdered By: Seth Ulrich on 01-06-2025 9.9 % High 4.2-6.3 [facility] Random urine creatinine jamey urement (mass/volume)Ordered By: Seth Ulrich on 01-06-2025 Creatinine Unsp time (U) [Mass/Vol] 58.00 mg/dL 28.00-217. 00 [facility] Serum or plasma cholesterol in HDL measurement (mass/volume)Ordered By: Seth Ulrich on 01-06-2025 Cholesterol in HDL [Mass/Vol] 64 mg/dL >40 [facility] Serum or plasma cholesterol measurement (mass/volume)Ordered By: Seth Ulrich on 01-06-2025 Cholesterol [Mass/Vol] 178 mg/dL <201 [facility] T4 Free Directon 01-06-2025 T4 FREE DIRECT 1.20 ng/dL Normal 0.76-1.46 [facility] Comment on above: Performed By: #### L 502.0250, L500.4100, L501.9520, L506.0400, L506.1001 ####[facility] [address] [place], [address] T4 freeOrdered By: Mayank on 01-06-2025 Free T4 [Mass/Vol] 1.20 ng/dL 0.76-1.46 [facility] TSH DL <= 0.005 mIU/L QnOrde red By: Seth Ulrich on 01-06-2025 TSH Qn 4.420 uIU/mL High 0.300-4.20 0 [facility] Thyroid Stim Hormone (TSH)on 01-06-2025 TSH 4.420 uIU/mL High 0.300-4.20 0 [facility] Comment on above: Performed By: #### L 502.0250, L500.4100, L501.9520, L506.0400, L506.1001 ####[facility] [address] [place], [address] Urine albumin measurement [facility] detection limit of 20 mg/L or less (mass/volume)Ordered By: Seth Ulrich on 01-06-2025 Albumin DL <= 20 mg/L (U) [Mass/Vol] 294.0 mg/L <20 mg/L [facility] Vitamin D,25 Hydroxyon 01-06 Vitamin D 25-OH 21.2 ng/mL Low 30-100 [facility] Comment on above: Result Comment: Deborah min D StatusDeficiency: <20 ng/mL (50nmol/L)Insufficiency: 20-30 ng/mL (50-75 nmol/L)Sufficiency: 30-100 ng/mL (75-250 nmol/L)Toxicity: >100 ng/mL (>250 nmol/L) Performed By: #### L 502.0250, L500.4100, L501.9520, L506.0400, L506.1001 ####[facility] [address] [place], [address] Absolute lymphocyte countOrd ered By: ED PROVIDER on 11-15-2024 Lymphocytes Auto (Unsp spec) [#/Vol] 1.65 10*3/uL 0.83-4.51 [facility] Anion gap in Serum or Plasma Ordered By: Sanju Hernandez on 11-15-2024 Anion gap [Moles/Vol] 15 mmol/L 10-03 [facility] Automated lymphocyte count a s percentage of total leukocytesOrdered By: ED PROVIDER on 11-15-2024 Lymphocytes/100 WBC Auto (Unsp spec) 19.5 % [facility] BUN/creatinine ratioOrdered By: Sanju Hernandez on 11-15-2024 Urea nitrogen/Creatinine [Mass ratio] 17.0 mg/mg - [facility] Basic Metabolic Profile (BMP )on 11-15-2024 BUN/CRE 17.0 RATIO Normal - [facility] Comment on above: Performed By: #### L 100.0100, L501.4021, L500.2500 ####[facility] [address] [place], [address] Calcium [Mass/Vol] 8.3 mg/dL Normal 7.6-11.0 [facility] Comment on above: Performed By: #### L 100.0100, L501.4021, L500.2500 ####[facility] [address] [place], [address] Chloride [Moles/Vol] 96 mmol/L Low 98-108 [facility] Comment on above: Performed By: #### L 100.0100, L501.4021, L500.2500 ####[facility] [address] [place], [address] CO2 [Moles/Vol] 19.7 mmol/L Low 21.0-32.0 [facility] Comment on above: Performed By: #### L 100.0100, L501.4021, L500.2500 ####[facility] [address] [place], [address] Creatinine [Mass/Vol] 1.18 mg/dL Normal 0.70-1.20 [facility] Comment on above: Performed By: #### L 100.0100, L501.4021, L500.2500 ####[facility] [address] [place], [address] ECRCL 40.97 ml/min Low 50-250 [facility] Comment on above: Performed By: #### L 100.0100, L501.4021, L500.2500 ####[facility] [address] [place], [address] GAP 15 Normal 5-15 [facility] Comment on above: Performed By: #### L 100.0100, L501.4021, L500.2500 ####[facility] [address] [place], [address] GFR/1.73 sq M.predicted among non-blacks MDRD (S/P/Bld) [Vol rate/Area] 50 mL/min/{1.73_m2} Low >60 [facility] Comment on above: Result Comment: mL/m in/1.73m2 CKD-EPI Creatinine Equation (2020) Performed By: #### L 100.0100, L501.4021, L500.2500 ####[facility] [address] [place], [address] Glucose [Mass/Vol] 179 mg/dL High 70-99 [facility] Comment on above: Performed By: #### L 100.0100, L501.4021, L500.2500 ####[facility] [address] [place], [address] Potassium [Moles/Vol] 4.6 mmol/L Normal 3.3-5.1 [facility] Comment on above: Result Comment: Hemo lysis present, Results??could be affected.?? Performed By: #### L 100.0100, L501.4021, L500.2500 ####[facility] [address] [place], [address] Sodium [Moles/Vol] 130 mmol/L Low 133-145 [facility] Comment on above: Performed By: #### L 100.0100, L501.4021, L500.2500 ####[facility] [address] [place], [address] Urea nitrogen [Mass/Vol] 20 mg/dL High 4-19 [facility] Comment on above: Performed By: #### L 100.0100, L501.4021, L500.2500 ####[facility] [address] [place], [address] Basophil percentageOrdered B y: ED PROVIDER on 11-15-2024 Basophils/100 WBC (Bld) 0.7 % 0-1 [facility] Bilirubin Test strip Ql (U)O rdered By: Sanju Hernandez on 11-15-2024 Bilirubin Ql (U) Negative Negative [facility] Brain/Head without Contrasto n 11-15-2024 Brain/Head without Contrast Normal [facility] CBC W/Diff, Automatedon - Absolute Lymph 1.65 X10 3/uL Normal 0.83-4.51 [facility] Comment on above: Performed By: #### L 100.0100, L501.4021, L500.2500 ####[facility] [address] [place], [address] Absolute Neut 5.6 X10 3/uL Normal 2.0-7.7 [facility] Comment on above: Performed By: #### L 100.0100, L501.4021, L500.2500 ####[facility] [address] [place], [address] Basophils/100 WBC (Bld) 0.7 % Normal 0-1 [facility] Comment on above: Performed By: #### L 100.0100, L501.4021, L500.2500 ####[facility] [address] [place], [address] Eosinophils/100 WBC (Bld) 2.3 % Normal 0-5 [facility] Comment on above: Performed By: #### L 100.0100, L501.4021, L500.2500 ####[facility] [address] [place], [address] Erythrocyte distribution width (RBC) [Ratio] 18.4 % High 11.6-14.6 [facility] Comment on above: Performed By: #### L 100.0100, L501.4021, L500.2500 ####[facility] [address] [place], [address] Hematocrit (Bld) [Volume fraction] 27.3 % Low 37-47 [facility] Comment on above: Performed By: #### L 100.0100, L501.4021, L500.2500 ####[facility] [address] [place], [address] Hemoglobin (Bld) [Mass/Vol] 8.8 g/dL Low 12.0-15.0 [facility] Comment on above: Performed By: #### L 100.0100, L501.4021, L500.2500 ####[facility] [address] [place], [address] IG% 1.900 High 0.0-0.9 [facility] Comment on above: Result Comment: IG% - Immature Granulocytes (promyelocytes, myelocytes andmetamyelocytes) > 1% indicates that a LEFT SHIFT is Present. Performed By: #### L 100.0100, L501.4021, L500.2500 ####[facility] [address] [place], [address] Lymphocytes/100 WBC (Bld) 19.5 % Normal 19-41 [facility] Comment on above: Performed By: #### L 100.0100, L501.4021, L500.2500 ####[facility] [address] [place], [address] MCH (RBC) [Entitic mass] 27.6 pg Normal 27.0-32.0 [facility] Comment on above: Performed By: #### L 100.0100, L501.4021, L500.2500 ####[facility] [address] [place], [address] MCHC (RBC) [Mass/Vol] 32.2 g/dL Normal 32-36 [facility] Comment on above: Performed By: #### L 100.0100, L501.4021, L500.2500 ####[facility] [address] [place], [address] MCV (RBC) [Entitic vol] 85.6 fL Normal 81-99 [facility] Comment on above: Performed By: #### L 100.0100, L501.4021, L500.2500 ####[facility] [address] [place], [address] Monocytes/100 WBC (Bld) 8.9 % Normal 0-10 [facility] Comment on above: Performed By: #### L 100.0100, L501.4021, L500.2500 ####[facility] [address] [place], [address] Neutrophils/100 WBC (Bld) 66.7 % Normal 47-70 [facility] Comment on above: Performed By: #### L 100.0100, L501.4021, L500.2500 ####[facility] [address] [place], [address] Nucleated RBC (Bld) [#/Vol] 0 10*3/uL Normal 0-5 [facility] Comment on above: Performed By: #### L 100.0100, L501.4021, L500.2500 ####[facility] [address] [place], [address] Platelet mean volume (Bld) [Entitic vol] 8.9 fL Normal 6.2-12.0 [facility] Comment on above: Performed By: #### L 100.0100, L501.4021, L500.2500 ####[facility] [address] [place], [address] Platelets (Bld) [#/Vol] 458 10*3/uL High 150-450 [facility] Comment on above: Performed By: #### L 100.0100, L501.4021, L500.2500 ####[facility] [address] [place], [address] RBC (Bld) [#/Vol] 3.19 10*6/uL Low 4.2-5.4 [facility] Comment on above: Performed By: #### L 100.0100, L501.4021, L500.2500 ####[facility] [address] [place], [address] RDW SD 57.3 fl High 35.1-43.9 [facility] Comment on above: Performed By: #### L 100.0100, L501.4021, L500.2500 ####[facility] [address] [place], [address] WBC (Bld) [#/Vol] 8.4 10*3/uL Normal 4.4-11.0 [facility] Comment on above: Performed By: #### L 100.0100, L501.4021, L500.2500 ####[facility] [address] [place], [address] Carbon dioxide, total [Moles /volume] in Central venous bloodOrdered By: Sanju Hernandez on 11-15-2024 CO2 [Moles/Vol] 19.7 mmol/L Low 21.0-32.0 [facility] Chest 1 View (Portable)on Chest 1 View (Portable) Normal [facility] Chloride assayOrdered By: Baldomero Hernandez on 11-15-2024 Chloride [Moles/Vol] 96 mmol/L Low 98-108 [facility] Emergency Department Summary on 11-15-2024 Emergency Department Summary Normal [facility] Eosinophil percentageOrdered By: ED PROVIDER on 11-15-2024 Eosinophils/100 WBC (Bld) 2.3 % 0-5 [facility] Erythrocyte distribution wid th ratioOrdered By: ED PROVIDER on 11-15-2024 Erythrocyte distribution width (RBC) [Ratio] 18.4 % High 11.6-14.6 [facility] Erythrocyte distribution wid th standard deviationOrdered By: ED PROVIDER on 11-15-2024 Erythrocyte distribution width (RBC) [Ratio] 57.3 fl High 35.1-43.9 [facility] Glomerular filtration rate ( GFR) estimation/1.73 sq m using serum, plasma, or whole bOrdered By: Sanju Hernandez on 11-15-2024 GFR/1.73 sq M.predicted among non-blacks MDRD (S/P/Bld) [Vol rate/Area] 50 mL/min/{1.73_m2} Low >60 [facility] Hematocrit Auto (Bld) [Volum e fraction]Ordered By: ED PROVIDER on 11-15-2024 Hematocrit (Bld) [Volume fraction] 27.3 % Low 37-47 [facility] Hemoglobin measurementOrdere d By: ED PROVIDER on 11-15-2024 Hemoglobin (Bld) [Mass/Vol] 8.8 g/dL Low 12.0-15.0 [facility] Immature granulocytes/100 WB C Auto (Bld)Ordered By: ED PROVIDER on 11-15-2024 Immature granulocytes/100 WBC (Bld) 1.900 % High 0.0-0.9 [facility] Ketones Test strip Ql (U)Ord ered By: Sanju Hernandez on 11-15-2024 Ketones Ql (U) Negative Negative [facility] L499.0042on 11-15-2024 Trop T High Sen 15 ng/L High <=14 [facility] Comment on above: Performed By: #### L 499.0042 ####[facility] [address] [place], [address] L499.0043on 11-15-2024 Trop T High Sen Normal <=14 [facility] Comment on above: Result Comment: Canc elled via OM: Order cancelled - Patient discharged Performed By: #### L 499.0043 ####[facility] [address] [place], [address] L501.4021on 11-15-2024 Trop T High Sen 14 ng/L Normal <=14 [facility] Comment on above: Performed By: #### L 100.0100, L501.4021, L500.2500 ####[facility] [address] [place], [address] MCV (mean corpuscular volume ) determinationOrdered By: ED PROVIDER on 11-15-2024 MCV (RBC) [Entitic vol] 85.6 fL 81-99 [facility] Mean corpuscular hemoglobin (MCH) determinationOrdered By: ED PROVIDER on 11-15-2024 MCH (RBC) [Entitic mass] 27.6 pg 27.0-32.0 [facility] Monocyte percentageOrdered B y: ED PROVIDER on 11-15-2024 Monocytes/100 WBC (Bld) 8.9 % 0-10 [facility] Mucus LM Ql (Urine sed)Order ed By: Sanju Hernandez on 11-15-2024 Mucus Ql (Urine sed) 0 SEEN /hpf [facility] Neutrophil percentageOrdered By: ED PROVIDER on 11-15-2024 Neutrophils/100 WBC (Bld) 66.7 % 47-70 [facility] Nitrite Test strip Ql (U)Ord ered By: Sanju Hernandez on 11-15-2024 Nitrite Ql (U) Negative Negative [facility] Platelet countOrdered By: ED PROVIDER on 11-15-2024 Platelets (Bld) [#/Vol] 458 10*3/uL High 150-450 [facility] Potassium measurement (mass/ volume)Ordered By: Sanju Hernandez on 11-15-2024 Potassium (Unsp spec) [Mass/Vol] 4.6 mmol/L 3.3-5.1 [facility] Protein Test strip Ql (U)Ord ered By: Sanju Hernandez on 11-15-2024 Protein Ql (U) 30 mg/dl High Negative [facility] RBC Auto (Bld) [#/Vol]Ordere d By: ED PROVIDER on 11-15-2024 RBC (Bld) [#/Vol] 3.19 10*6/uL Low 4.2-5.4 [facility] Serum creatinine measurement (mass/volume)Ordered By: Sanju Hernandez on 11-15-2024 Creatinine [Mass/Vol] 1.18 mg/dL 0.70-1.20 [facility] Serum glucose measurement (m ass/volume)Ordered By: Sanju Hernandez on 11-15-2024 Glucose [Mass/Vol] 179 mg/dL High 70-99 [facility] Serum or plasma calcium jamey urement (mass/volume)Ordered By: Sanju Hernandez on 11-15-2024 Calcium [Mass/Vol] 8.3 mg/dL 7.6-11.0 [facility] Serum or plasma urea nitroge n measurement (mass/volume)Ordered By: Sanju Hernandez on 11-15-2024 Urea nitrogen [Mass/Vol] 20 mg/dL High 4-19 [facility] Sodium levelOrdered By: Sanju Hernandez on 11-15-2024 Sodium [Moles/Vol] 130 mmol/L Low 133-145 [facility] Squamous epithelial cells de tection in urine sediment by light microscopyOrdered By: Sanju Hernandez on 11-15-2024 Epithelial cells.squamous LM Ql (Urine sed) 5-10 SEEN /hpf 5-10 [facility] Troponin T.cardiac [Mass/vol ume] in Serum or Plasma by High sensitivity methodOrdered By: Sanju Hernandez on 11-15-2024 Troponin T.cardiac High sensitivity method [Mass/Vol] 15 ng/L High <14 [facility] Troponin T.cardiac High sensitivity method [Mass/Vol] 14 ng/L <14 [facility] Urinalysis, Completeon 11-15 BACTERIA 1+ /hpf Normal None Seen [facility] Comment on above: Order Comment: CLEAN CATCH Performed By: #### L 400.0001 ####[facility] [address] [place], [address] WBC 0-5 SEEN Normal 0-5 [facility] Comment on above: Order Comment: CLEAN CATCH Performed By: #### L 400.0001 ####[facility] [address] [place], [address] EPI,SQUAMOUS 5-10 SEEN Normal 5-10 [facility] Comment on above: Order Comment: CLEAN CATCH Performed By: #### L 400.0001 ####[facility] [address] [place], [address] Mucus Ql (Urine sed) 0 SEEN Normal [facility] Comment on above: Order Comment: CLEAN CATCH Performed By: #### L 400.0001 ####[facility] [address] [place], [address] RBC 0 SEEN Normal 0-5 [facility] Comment on above: Order Comment: CLEAN CATCH Performed By: #### L 400.0001 ####[facility] [address] [place], [address] Urine clarityOrdered By: Bryan Hernandez on 11-15-2024 Clarity (U) Clear Clear [facility] Urine color determinationOrd ered By: Sanju Hernandez on 11-15-2024 Color (U) Yellow Yellow [facility] Urine glucose detectionOrder ed By: Sanju Hernandez on 11-15-2024 Glucose Ql (U) 250 mg/dl High Normal [facility] Urine leukocyte esterase det ection by dipstickOrdered By: Sanju Hernandez on 11-15-2024 Leukocyte esterase Test strip Ql (U) 25 /ul High Negative [facility] Urine pHOrdered By: Sanju melgar on 11-15-2024 pH (U) 5.0 [pH] 5.0 - 8.0 [facility] Urine sediment bacteria coun t by microscopy (number/high power field)Ordered By: Sanju Hernandez on 11-15-2024 Bacteria LM.HPF (Urine sed) [#/Area] 1 /[HPF] None Seen [facility] Urine specific gravity measu rementOrdered By: Sanju Hernandez on 11-15-2024 Specific gravity (U) [Rel density] 1.010 1.002-1.03 0 [facility] Urine urobilinogen measureme ntOrdered By: Sanju Hernandez on 11-15-2024 Urobilinogen Ql (U) Normal mg/dl Normal [facility] White blood cell (WBC) count Ordered By: ED PROVIDER on 11-15-2024 WBC (Bld) [#/Vol] 8.4 10*3/uL 4.4-11.0 [facility] White blood cell countOrdere d By: Sanju Hernandez on 11-15-2024 White blood cell count 0-5 SEEN /hpf 0-5 [facility] CBC W/Diff, Automatedon 05-0 Absolute Neut Normal 2.0-7.7 [facility] Comment on above: Result Comment: Canc elled via OM: Order cancelled - Patient discharged Performed By: #### L 500.4050, L100.0100 ####[facility] [address] [facility] [address] HCT Normal 37-47 [facility] Comment on above: Result Comment: Canc elled via OM: Order cancelled - Patient discharged Performed By: #### L 500.4050, L100.0100 ####[facility] [address] [facility] [address] HGB Normal 12.0-15.0 [facility] Comment on above: Result Comment: Canc elled via OM: Order cancelled - Patient discharged Performed By: #### L 500.4050, L100.0100 ####[facility] [address] [place], [address] MCH Normal 27.0-32.0 [facility] Comment on above: Result Comment: Canc elled via OM: Order cancelled - Patient discharged Performed By: #### L 500.4050, L100.0100 ####[facility] [address] [place], [address] MCHC Normal 32-36 [facility] Comment on above: Result Comment: Canc elled via OM: Order cancelled - Patient discharged Performed By: #### L 500.4050, L100.0100 ####[facility] [address] [place], [address] MCV Normal 81-99 [facility] Comment on above: Result Comment: Canc elled via OM: Order cancelled - Patient discharged Performed By: #### L 500.4050, L100.0100 ####[facility] [address] [place], [address] NEUT% Normal 47-70 [facility] Comment on above: Result Comment: Canc elled via OM: Order cancelled - Patient discharged Performed By: #### L 500.4050, L100.0100 ####[facility] [address] [place], [address] PLT Normal 150-450 [facility] Comment on above: Result Comment: Canc elled via OM: Order cancelled - Patient discharged Performed By: #### L 500.4050, L100.0100 ####[facility] [address] [place], [address] RBC Normal 4.2-5.4 [facility] Comment on above: Result Comment: Canc elled via OM: Order cancelled - Patient discharged Performed By: #### L 500.4050, L100.0100 ####[facility] [address] [place], [address] RDW CV Normal 11.6-14.6 [facility] Comment on above: Result Comment: Canc elled via OM: Order cancelled - Patient discharged Performed By: #### L 500.4050, L100.0100 ####[facility] [address] [place], [address] RDW SD Normal 35.1-43.9 [facility] Comment on above: Result Comment: Canc elled via OM: Order cancelled - Patient discharged Performed By: #### L 500.4050, L100.0100 ####[facility] [address] [place], [address] WBC Normal 4.4-11.0 [facility] Comment on above: Result Comment: Canc elled via OM: Order cancelled - Patient discharged Performed By: #### L 500.4050, L100.0100 ####[facility] [address] [place], [address] Comprehensive Metabolic Prof ilon 09-21-2024 ALB Normal 3.4-4.8 [facility] Comment on above: Result Comment: Canc elled via OM: Order cancelled - Patient discharged Performed By: #### L 500.4050, L100.0100 ####[facility] [address] [place], [address] ALK PHOS Normal 35-104 [facility] Comment on above: Result Comment: Canc elled via OM: Order cancelled - Patient discharged Performed By: #### L 500.4050, L100.0100 ####[facility] [address] [place], [address] ALT Normal <=34 [facility] Comment on above: Result Comment: Canc elled via OM: Order cancelled - Patient discharged Performed By: #### L 500.4050, L100.0100 ####[facility] [address] [place], [address] AST Normal <=31 [facility] Comment on above: Result Comment: Canc elled via OM: Order cancelled - Patient discharged Performed By: #### L 500.4050, L100.0100 ####[facility] [address] [place], [address] BUN Normal 4-19 [facility] Comment on above: Result Comment: Canc elled via OM: Order cancelled - Patient discharged Performed By: #### L 500.4050, L100.0100 ####[facility] [address] [place], [address] BUN/CRE Normal 10-20 [facility] Comment on above: Result Comment: Canc elled via OM: Order cancelled - Patient discharged Performed By: #### L 500.4050, L100.0100 ####[facility] [address] [place], [address] Calcium Normal 7.6-11.0 [facility] Comment on above: Result Comment: Canc elled via OM: Order cancelled - Patient discharged Performed By: #### L 500.4050, L100.0100 ####[facility] [address] [place], [address] CL Normal 98-108 [facility] Comment on above: Result Comment: Canc elled via OM: Order cancelled - Patient discharged Performed By: #### L 500.4050, L100.0100 ####[facility] [address] [place], [address] CO2 Normal 21.0-32.0 [facility] Comment on above: Result Comment: Canc elled via OM: Order cancelled - Patient discharged Performed By: #### L 500.4050, L100.0100 ####[facility] [address] [place], [address] CREAT,SERUM Normal 0.70-1.20 [facility] Comment on above: Result Comment: Canc elled via OM: Order cancelled - Patient discharged Performed By: #### L 500.4050, L100.0100 ####[facility] [address] [place], [address] eGFR Normal >60 [facility] Comment on above: Result Comment: Canc elled via OM: Order cancelled - Patient discharged Performed By: #### L 500.4050, L100.0100 ####[facility] [address] [place], [address] GAP Normal 5-15 [facility] Comment on above: Result Comment: Canc elled via OM: Order cancelled - Patient discharged Performed By: #### L 500.4050, L100.0100 ####[facility] [address] [place], [address] GLU Normal 70-99 [facility] Comment on above: Result Comment: Canc elled via OM: Order cancelled - Patient discharged Performed By: #### L 500.4050, L100.0100 ####[facility] [address] [place], [address] Potassium Normal 3.3-5.1 [facility] Comment on above: Result Comment: Canc elled via OM: Order cancelled - Patient discharged Performed By: #### L 500.4050, L100.0100 ####[facility] [address] [place], [address] T BILI Normal 0.00-1.30 [facility] Comment on above: Result Comment: Canc elled via OM: Order cancelled - Patient discharged Performed By: #### L 500.4050, L100.0100 ####[facility] [address] [place], [address] T PROT Normal 5.9-8.4 [facility] Comment on above: Result Comment: Canc elled via OM: Order cancelled - Patient discharged Performed By: #### L 500.4050, L100.0100 ####[facility] [address] [place], [address] Comprehensive Metabolic Profil Normal 133-145 [facility] Comment on above: Result Comment: Canc elled via OM: Order cancelled - Patient discharged Performed By: #### L 500.4050, L100.0100 ####[facility] [address] [place], [address] CBC W/Diff, Automatedon 05-0 -2024 Absolute Neut Normal 2.0-7.7 [facility] Comment on above: Result Comment: Canc elled via OM: Order cancelled - Patient discharged Performed By: #### L 500.4050, L100.0100 ####[facility] [address] [place], [address] HCT Normal 37-47 [facility] Comment on above: Result Comment: Canc elled via OM: Order cancelled - Patient discharged Performed By: #### L 500.4050, L100.0100 ####[facility] [address] [place], [address] HGB Normal 12.0-15.0 [facility] Comment on above: Result Comment: Canc elled via OM: Order cancelled - Patient discharged Performed By: #### L 500.4050, L100.0100 ####[facility] [address] [place], [address] MCH Normal 27.0-32.0 [facility] Comment on above: Result Comment: Canc elled via OM: Order cancelled - Patient discharged Performed By: #### L 500.4050, L100.0100 ####[facility] [address] [place], [address] MCHC Normal 32-36 [facility] Comment on above: Result Comment: Canc elled via OM: Order cancelled - Patient discharged Performed By: #### L 500.4050, L100.0100 ####[facility] [address] [place], [address] MCV Normal 81-99 [facility] Comment on above: Result Comment: Canc elled via OM: Order cancelled - Patient discharged Performed By: #### L 500.4050, L100.0100 ####[facility] [address] [place], [address] NEUT% Normal 47-70 [facility] Comment on above: Result Comment: Canc elled via OM: Order cancelled - Patient discharged Performed By: #### L 500.4050, L100.0100 ####[facility] [address] [place], [address] PLT Normal 150-450 [facility] Comment on above: Result Comment: Canc elled via OM: Order cancelled - Patient discharged Performed By: #### L 500.4050, L100.0100 ####[facility] [address] [place], [address] RBC Normal 4.2-5.4 [facility] Comment on above: Result Comment: Canc elled via OM: Order cancelled - Patient discharged Performed By: #### L 500.4050, L100.0100 ####[facility] [address] [place], [address] RDW CV Normal 11.6-14.6 [facility] Comment on above: Result Comment: Canc elled via OM: Order cancelled - Patient discharged Performed By: #### L 500.4050, L100.0100 ####[facility] [address] [place], [address] RDW SD Normal 35.1-43.9 [facility] Comment on above: Result Comment: Canc elled via OM: Order cancelled - Patient discharged Performed By: #### L 500.4050, L100.0100 ####[facility] [address] [place], [address] WBC Normal 4.4-11.0 [facility] Comment on above: Result Comment: Canc elled via OM: Order cancelled - Patient discharged Performed By: #### L 500.4050, L100.0100 ####[facility] [address] [place], [address] Comprehensive Metabolic Prof ilon 09-20-2024 ALB Normal 3.4-4.8 [facility] Comment on above: Result Comment: Canc elled via OM: Order cancelled - Patient discharged Performed By: #### L 500.4050, L100.0100 ####[facility] [address] [place], [address] ALK PHOS Normal 35-104 [facility] Comment on above: Result Comment: Canc elled via OM: Order cancelled - Patient discharged Performed By: #### L 500.4050, L100.0100 ####[facility] [address] [place], [address] ALT Normal <=34 [facility] Comment on above: Result Comment: Canc elled via OM: Order cancelled - Patient discharged Performed By: #### L 500.4050, L100.0100 ####[facility] [address] [place], [address] AST Normal <=31 [facility] Comment on above: Result Comment: Canc elled via OM: Order cancelled - Patient discharged Performed By: #### L 500.4050, L100.0100 ####[facility] [address] [place], [address] BUN Normal 4-19 [facility] Comment on above: Result Comment: Canc elled via OM: Order cancelled - Patient discharged Performed By: #### L 500.4050, L100.0100 ####[facility] [address] [place], [address] BUN/CRE Normal 10-20 [facility] Comment on above: Result Comment: Canc elled via OM: Order cancelled - Patient discharged Performed By: #### L 500.4050, L100.0100 ####[facility] [address] [place], [address] Calcium Normal 7.6-11.0 [facility] Comment on above: Result Comment: Canc elled via OM: Order cancelled - Patient discharged Performed By: #### L 500.4050, L100.0100 ####[facility] [address] [place], [address] CL Normal 98-108 [facility] Comment on above: Result Comment: Canc elled via OM: Order cancelled - Patient discharged Performed By: #### L 500.4050, L100.0100 ####[facility] [address] [place], [address] CO2 Normal 21.0-32.0 [facility] Comment on above: Result Comment: Canc elled via OM: Order cancelled - Patient discharged Performed By: #### L 500.4050, L100.0100 ####[facility] [address] [place], [address] CREAT,SERUM Normal 0.70-1.20 [facility] Comment on above: Result Comment: Canc elled via OM: Order cancelled - Patient discharged Performed By: #### L 500.4050, L100.0100 ####[facility] [address] [place], [address] eGFR Normal >60 [facility] Comment on above: Result Comment: Canc elled via OM: Order cancelled - Patient discharged Performed By: #### L 500.4050, L100.0100 ####[facility] [address] [place], [address] GAP Normal 5-15 [facility] Comment on above: Result Comment: Canc elled via OM: Order cancelled - Patient discharged Performed By: #### L 500.4050, L100.0100 ####[facility] [address] [place], [address] GLU Normal 70-99 [facility] Comment on above: Result Comment: Canc elled via OM: Order cancelled - Patient discharged Performed By: #### L 500.4050, L100.0100 ####[facility] [address] [place], [address] Potassium Normal 3.3-5.1 [facility] Comment on above: Result Comment: Canc elled via OM: Order cancelled - Patient discharged Performed By: #### L 500.4050, L100.0100 ####[facility] [address] [place], [address] T BILI Normal 0.00-1.30 [facility] Comment on above: Result Comment: Canc elled via OM: Order cancelled - Patient discharged Performed By: #### L 500.4050, L100.0100 ####[facility] [address] [place], [address] T PROT Normal 5.9-8.4 [facility] Comment on above: Result Comment: Canc elled via OM: Order cancelled - Patient discharged Performed By: #### L 500.4050, L100.0100 ####[facility] [address] [place], [address] Comprehensive Metabolic Profil Normal 133-145 [facility] Comment on above: Result Comment: Canc elled via OM: Order cancelled - Patient discharged Performed By: #### L 500.4050, L100.0100 ####[facility] [address] [place], [address] Absolute lymphocyte countOrd ered By: Bassem Schwartz on 09-19-2024 Lymphocytes Auto (Unsp spec) [#/Vol] 2.19 10*3/uL 0.83-4.51 [facility] Anion gap in Serum or Plasma Ordered By: Bassem Schwartz on 09-19-2024 Anion gap [Moles/Vol] 11 mmol/L 5-15 [facility] Automated lymphocyte count a s percentage of total leukocytesOrdered By: aBssem Schwartz on 09-19-2024 Lymphocytes/100 WBC Auto (Unsp spec) 25.9 % 19-41 [facility] BUN/creatinine ratioOrdered By: Bassem Schwartz on 09-19-2024 Urea nitrogen/Creatinine [Mass ratio] 22.5 mg/mg High 10-20 [facility] Basophil percentageOrdered B y: Bassem Schwartz on 09-19-2024 Basophils/100 WBC (Bld) 0.8 % 0-1 [facility] Bedside Glucoseon 09-19-2024 FINGERSTICK GLU 237 mg/dL High 74-106 [facility] Comment on above: Result Comment: LOURDES GEMENT OF PATIENT CARE PER NURSING PROTOCOL Performed By: #### L 501.080 ####[facility] [address] [place], [address] FINGERSTICK GLU 117 mg/dL High [facility]106 [facility] Comment on above: Result Comment: LOURDES GEMENT OF PATIENT CARE PER NURSING PROTOCOL Performed By: #### L 501.080 ####[facility] [address] [place], [address] FINGERSTICK GLU 101 mg/dL Normal -[address] [place] [address] Comment on above: Result Comment: LOURDES GEMENT OF PATIENT CARE PER NURSING PROTOCOL Performed By: #### L 501.080 ####[facility] [address] [place], [address] Bilirubin, totalOrdered By: Bassem Schwartz on 09-19-2024 Bilirubin [Mass/Vol] 0.20 mg/dL 0.00-1.30 [facility] CBC W/Diff, Automatedon Absolute Lymph 2.19 X10 3/uL Normal 0.83-4.51 [facility] Comment on above: Performed By: #### L 100.0100, L500.4050, L501.2300, L501.5200 ####[facility] [address] [place], [address] Absolute Neut 5.2 X10 3/uL Normal 2.0-7.7 [facility] Comment on above: Performed By: #### L 100.0100, L500.4050, L501.2300, L501.5200 ####[facility] [address] [place], [address] Basophils/100 WBC (Bld) 0.8 % Normal 0-1 [facility] Comment on above: Performed By: #### L 100.0100, L500.4050, L501.2300, L501.5200 ####[facility] [address] [place], [address] Eosinophils/100 WBC (Bld) 3.4 % Normal 0-5 [facility] Comment on above: Performed By: #### L 100.0100, L500.4050, L501.2300, L501.5200 ####[facility] [address] [place], [address] Erythrocyte distribution width (RBC) [Ratio] 18.7 % High 11.6-14.6 [facility] Comment on above: Performed By: #### L 100.0100, L500.4050, L501.2300, L501.5200 ####[facility] [address] [place], [address] Hematocrit (Bld) [Volume fraction] 28.3 % Low 37-47 [facility] Comment on above: Performed By: #### L 100.0100, L500.4050, L501.2300, L501.5200 ####[facility] [address] [place], [address] Hemoglobin (Bld) [Mass/Vol] 8.9 g/dL Low 12.0-15.0 [facility] Comment on above: Performed By: #### L 100.0100, L500.4050, L501.2300, L501.5200 ####[facility] [address] [place], [address] IG% 0.600 Normal 0.0-0.9 [facility] Comment on above: Result Comment: IG% - Immature Granulocytes (promyelocytes, myelocytes andmetamyelocytes) > 1% indicates that a LEFT SHIFT is Present. Performed By: #### L 100.0100, L500.4050, L501.2300, L501.5200 ####[facility] [address] [place], [address] Lymphocytes/100 WBC (Bld) 25.9 % Normal 19-41 [facility] Comment on above: Performed By: #### L 100.0100, L500.4050, L501.2300, L501.5200 ####[facility] [address] [place], [address] MCH (RBC) [Entitic mass] 27.1 pg Normal 27.0-32.0 [facility] Comment on above: Performed By: #### L 100.0100, L500.4050, L501.2300, L501.5200 ####[facility] [address] [place], [address] MCHC (RBC) [Mass/Vol] 31.4 g/dL Low 32-36 [facility] Comment on above: Performed By: #### L 100.0100, L500.4050, L501.2300, L501.5200 ####[facility] [address] [place], [address] MCV (RBC) [Entitic vol] 86.0 fL Normal 81-99 [facility] Comment on above: Performed By: #### L 100.0100, L500.4050, L501.2300, L501.5200 ####[facility] [address] [place], [address] Monocytes/100 WBC (Bld) 7.5 % Normal 0-10 [facility] Comment on above: Performed By: #### L 100.0100, L500.4050, L501.2300, L501.5200 ####[facility] [address] [place], [address] Neutrophils/100 WBC (Bld) 61.8 % Normal 47-70 [facility] Comment on above: Performed By: #### L 100.0100, L500.4050, L501.2300, L501.5200 ####[facility] [address] [place], [address] Nucleated RBC (Bld) [#/Vol] 0 10*3/uL Normal 0-5 [facility] Comment on above: Performed By: #### L 100.0100, L500.4050, L501.2300, L501.5200 ####[facility] [address] [place], [address] Platelet mean volume (Bld) [Entitic vol] 8.7 fL Normal 6.2-12.0 [facility] Comment on above: Performed By: #### L 100.0100, L500.4050, L501.2300, L501.5200 ####[facility] [address] [place], [address] Platelets (Bld) [#/Vol] 442 10*3/uL Normal 150-450 [facility] Comment on above: Performed By: #### L 100.0100, L500.4050, L501.2300, L501.5200 ####[facility] [address] [place], [address] RBC (Bld) [#/Vol] 3.29 10*6/uL Low 4.2-5.4 [facility] Comment on above: Performed By: #### L 100.0100, L500.4050, L501.2300, L501.5200 ####[facility] [address] [place], [address] RDW SD 59.0 fl High 35.1-43.9 [facility] Comment on above: Performed By: #### L 100.0100, L500.4050, L501.2300, L501.5200 ####[facility] [address] [place], [address] WBC (Bld) [#/Vol] 8.5 10*3/uL Normal 4.4-11.0 [facility] Comment on above: Performed By: #### L 100.0100, L500.4050, L501.2300, L501.5200 ####[facility] [address] [place], [address] Carbon dioxide, total [Moles /volume] in Central venous bloodOrdered By: Bassem Schwartz on 09-19-2024 CO2 [Moles/Vol] 18.9 mmol/L Low 21.0-32.0 [facility] Chloride assayOrdered By: Giovanny Schwartz on 09-19-2024 Chloride [Moles/Vol] 104 mmol/L 98-108 [facility] Comprehensive Metabolic Prof ilon 09-19-2024 Albumin [Mass/Vol] 3.5 g/dL Normal 3.4-4.8 [facility] Comment on above: Performed By: #### L 100.0100, L500.4050, L501.2300, L501.5200 ####[facility] [address] [place], [address] Albumin/Globulin [Mass ratio] 1.4 {ratio} Normal 0.9-2.4 [facility] Comment on above: Performed By: #### L 100.0100, L500.4050, L501.2300, L501.5200 ####[facility] [address] [place], [address] ALK PHOS 91 U/L Normal 35-104 [facility] Comment on above: Performed By: #### L 100.0100, L500.4050, L501.2300, L501.5200 ####[facility] [address] [place], [address] ALT [Catalytic activity/Vol] 12 U/L Normal <=34 [facility] Comment on above: Performed By: #### L 100.0100, L500.4050, L501.2300, L501.5200 ####[facility] [address] [place], [address] AST [Catalytic activity/Vol] 13 U/L Normal <=31 [facility] Comment on above: Performed By: #### L 100.0100, L500.4050, L501.2300, L501.5200 ####[facility] [address] [place], [address] Bilirubin [Mass/Vol] 0.20 mg/dL Normal 0.00-1.30 [facility] Comment on above: Performed By: #### L 100.0100, L500.4050, L501.2300, L501.5200 ####[facility] [address] [place], [address] BUN/CRE 22.5 RATIO High 10-20 [facility] Comment on above: Performed By: #### L 100.0100, L500.4050, L501.2300, L501.5200 ####[facility] [address] [place], [address] Calcium [Mass/Vol] 8.1 mg/dL Normal 7.6-11.0 [facility] Comment on above: Performed By: #### L 100.0100, L500.4050, L501.2300, L501.5200 ####[facility] [address] [place], [address] Chloride [Moles/Vol] 104 mmol/L Normal 98-108 [facility] Comment on above: Performed By: #### L 100.0100, L500.4050, L501.2300, L501.5200 ####[facility] [address] [place], [address] CO2 [Moles/Vol] 18.9 mmol/L Low 21.0-32.0 [facility] Comment on above: Performed By: #### L 100.0100, L500.4050, L501.2300, L501.5200 ####[facility] [address] [place], [address] Creatinine [Mass/Vol] 1.27 mg/dL High 0.70-1.20 [facility] Comment on above: Performed By: #### L 100.0100, L500.4050, L501.2300, L501.5200 ####[facility] [address] [place], [address] ECRCL 36.90 ml/min Low 50-250 [facility] Comment on above: Performed By: #### L 100.0100, L500.4050, L501.2300, L501.5200 ####[facility] [address] [place], [address] GAP 11 Normal 5-15 [facility] Comment on above: Performed By: #### L 100.0100, L500.4050, L501.2300, L501.5200 ####[facility] [address] [place], [address] GFR/1.73 sq M.predicted among non-blacks MDRD (S/P/Bld) [Vol rate/Area] 46 mL/min/{1.73_m2} Low >60 [facility] Comment on above: Result Comment: mL/m in/1.73m2 CKD-EPI Creatinine Equation (2020) Performed By: #### L 100.0100, L500.4050, L501.2300, L501.5200 ####[facility] [address] [place], [address] Globulin (S) [Mass/Vol] 2.5 g/dL Normal 2.2-4.2 [facility] Comment on above: Performed By: #### L 100.0100, L500.4050, L501.2300, L501.5200 ####[facility] [address] [place], [address] Glucose [Mass/Vol] 104 mg/dL High 70-99 [facility] Comment on above: Performed By: #### L 100.0100, L500.4050, L501.2300, L501.5200 ####[facility] [address] [place], [address] Potassium [Moles/Vol] 3.1 mmol/L Low 3.3-5.1 [facility] Comment on above: Performed By: #### L 100.0100, L500.4050, L501.2300, L501.5200 ####[facility] [address] [place], [address] Sodium [Moles/Vol] 133 mmol/L Normal 133-145 [facility] Comment on above: Performed By: #### L 100.0100, L500.4050, L501.2300, L501.5200 ####[facility] [address] [place], [address] T PROT 6.0 g/dL Normal 5.9-8.4 [place] [facility] Comment on above: Performed By: #### L 100.0100, L500.4050, L501.2300, L501.5200 ####[facility] [address] [place], [address] Urea nitrogen [Mass/Vol] 29 mg/dL High 4-19 [facility] Comment on above: Performed By: #### L 100.0100, L500.4050, L501.2300, L501.5200 ####[facility] [address] [place], [address] Eosinophil percentageOrdered By: Bassem Schwartz on 09-19-2024 Eosinophils/100 WBC (Bld) 3.4 % 0-5 [facility] Erythrocyte distribution wid th ratioOrdered By: Bassem Schwartz on 09-19-2024 Erythrocyte distribution width (RBC) [Ratio] 18.7 % High 11.6-14.6 [facility] Erythrocyte distribution wid th standard deviationOrdered By: Bassem Schwartz on 09-19-2024 Erythrocyte distribution width (RBC) [Ratio] 59.0 fl High 35.1-43.9 [facility] Glomerular filtration rate ( GFR) estimation/1.73 sq m using serum, plasma, or whole bOrdered By: Bassem Schwartz on 09-19-2024 GFR/1.73 sq M.predicted among non-blacks MDRD (S/P/Bld) [Vol rate/Area] 46 mL/min/{1.73_m2} Low >60 [facility] deOrdered By: Bassem Schwartz on 09-19-2024 Glucose [Mass/Vol] 237 mg/dL High 74-106 [facility] Hematocrit Auto (Bld) [Volum e fraction]Ordered By: Bassem Schwartz on 09-19-2024 Hematocrit (Bld) [Volume fraction] 28.3 % Low 37-47 [facility] Hemoglobin measurementOrdere d By: Bassem Schwartz on 09-19-2024 Hemoglobin (Bld) [Mass/Vol] 8.9 g/dL Low 12.0-15.0 [facility] Immature granulocytes/100 WB C Auto (Bld)Ordered By: Bassem Schwartz on 09-19-2024 Immature granulocytes/100 WBC (Bld) 0.600 % 0.0-0.9 [facility] MCV (mean corpuscular volume ) determinationOrdered By: Bassem Schwartz on 09-19-2024 MCV (RBC) [Entitic vol] 86.0 fL 81-99 [facility] Magnesiumon 09-19-2024 Magnesium [Mass/Vol] 2.1 mg/dL Normal 1.5-2.2 [facility] Comment on above: Performed By: #### L 100.0100, L500.4050, L501.2300, L501.5200 ####[facility] [address] [place], [address] Magnesium measurement (mass/ volume)Ordered By: Bassem Schwartz on 09-19-2024 Magnesium (Unsp spec) [Mass/Vol] 2.1 mg/dL 1.5-2.2 [facility] Mean corpuscular hemoglobin (MCH) determinationOrdered By: Bassem Schwartz on 09-19-2024 MCH (RBC) [Entitic mass] 27.1 pg 27.0-32.0 [facility] Monocyte percentageOrdered B y: Bassem Schwartz on 09-19-2024 Monocytes/100 WBC (Bld) 7.5 % 0-10 [facility] Neutrophil percentageOrdered By: Bassem Schwartz on 09-19-2024 Neutrophils/100 WBC (Bld) 61.8 % 47-70 [facility] No Panel InformationOrdered By: Bassem Schwartz on 09-19-2024 13 U/L <32 [facility] Phosphoruson 09-19-2024 Phosphate [Mass/Vol] 2.8 mg/dL Normal 2.7-4.5 [facility] Comment on above: Performed By: #### L 100.0100, L500.4050, L501.2300, L501.5200 ####[facility] [address] [place], [address] Platelet countOrdered By: Giovanny Schwartz on 09-19-2024 Platelets (Bld) [#/Vol] 442 10*3/uL 150-450 [facility] Potassium measurement (mass/ volume)Ordered By: Bassem Schwartz on 09-19-2024 Potassium (Unsp spec) [Mass/Vol] 3.1 mmol/L Low 3.3-5.1 [facility] RBC Auto (Bld) [#/Vol]Ordere d By: Bassem Schwartz on 09-19-2024 RBC (Bld) [#/Vol] 3.29 10*6/uL Low 4.2-5.4 [facility] Serum creatinine measurement (mass/volume)Ordered By: Bassem Schwartz on 09-19-2024 Creatinine [Mass/Vol] 1.27 mg/dL High 0.70-1.20 [facility] Serum globulin measurementOr dered By: Bassem Schwartz on 09-19-2024 Globulin (S) [Mass/Vol] 2.5 g/dL 2.2-4.2 [facility] Serum glucose measurement (m ass/volume)Ordered By: Bassem Schwartz on 09-19-2024 Glucose [Mass/Vol] 104 mg/dL High 70-99 [facility] Serum or plasma alanine reese otransferase (ALT) measurementOrdered By: Bassem Schwartz on 09-19-2024 ALT [Catalytic activity/Vol] 12 U/L <35 [facility] Serum or plasma albumin jamey urement (mass/volume)Ordered By: Bassem Schwartz on 09-19-2024 Albumin [Mass/Vol] 3.5 g/dL 3.4-4.8 [facility] Serum or plasma albumin/glob ulin mass ratioOrdered By: Bassem Schwartz on 09-19-2024 Albumin/Globulin [Mass ratio] 1.4 {ratio} 0.9-2.4 [facility] Serum or plasma alkaline osman sphatase measurementOrdered By: Bassem Schwartz on 09-19-2024 ALP [Catalytic activity/Vol] 91 U/L 35-104 [facility] Serum or plasma calcium jamey urement (mass/volume)Ordered By: Bassem Schwartz on 09-19-2024 Calcium [Mass/Vol] 8.1 mg/dL 7.6-11.0 [facility] Serum or plasma urea nitroge n measurement (mass/volume)Ordered By: Bassem Schwartz on 09-19-2024 Urea nitrogen [Mass/Vol] 29 mg/dL High 4-19 [facility] Sodium levelOrdered By: Bill Schwartz on 09-19-2024 Sodium [Moles/Vol] 133 mmol/L 133-145 [facility] Total proteinOrdered By: Ramsey Schwartz on 09-19-2024 Protein [Mass/Vol] 6.0 g/dL 5.9-8.4 [facility] White blood cell (WBC) count Ordered By: Bassem Schwartz on 09-19-2024 WBC (Bld) [#/Vol] 8.5 10*3/uL 4.4-11.0 [facility] Abdomen Single View (Portabl e)on 09-18-2024 Abdomen Single View (Portable) Normal [facility] Bedside Glucoseon 09-18-2024 FINGERSTICK GLU 169 mg/dL High 74-106 [facility] Comment on above: Result Comment: LOURDES GEMENT OF PATIENT CARE PER NURSING PROTOCOL Performed By: #### L 501.080 ####[facility] [address] [facility] [address] FINGERSTICK GLU 67 mg/dL Low 74-106 [facility] Comment on above: Result Comment: LOURDES GEMENT OF PATIENT CARE PER NURSING PROTOCOL Performed By: #### L 501.080 ####[facility] [address] [facility] [address] FINGERSTICK GLU 195 mg/dL High 74-106 [facility] Comment on above: Result Comment: LOURDES GEMENT OF PATIENT CARE PER NURSING PROTOCOL Performed By: #### L 501.080 ####[facility] [address] [facility] [address] FINGERSTICK GLU 181 mg/dL High 74-106 [facility] Comment on above: Result Comment: LOURDES GEMENT OF PATIENT CARE PER NURSING PROTOCOL Performed By: #### L 501.080 ####[facility] [address] [place], [address] FINGERSTICK GLU 172 mg/dL High 74-106 [facility] Comment on above: Result Comment: LOURDES GEMENT OF PATIENT CARE PER NURSING PROTOCOL Performed By: #### L 501.080 ####[facility] [address] [place], [address] FINGERSTICK GLU 219 mg/dL High 74-106 [facility] Comment on above: Result Comment: LOURDES GEMENT OF PATIENT CARE PER NURSING PROTOCOL Performed By: #### L 501.080 ####[facility] [address] [place], [address] CBC W/Diff, Automatedon 04 0-2024 Absolute Lymph 2.16 X10 3/uL Normal 0.83-4.51 [facility] Comment on above: Performed By: #### L 100.0100, L500.4050 ####[facility] [address] [place], [address] Absolute Neut 9.1 X10 3/uL High 2.0-7.7 [facility] Comment on above: Performed By: #### L 100.0100, L500.4050 ####[facility] [address] [place], [address] Basophils/100 WBC (Bld) 0.5 % Normal 0-1 [facility] Comment on above: Performed By: #### L 100.0100, L500.4050 ####[facility] [address] [place], [address] Eosinophils/100 WBC (Bld) 2.4 % Normal 0-5 [facility] Comment on above: Performed By: #### L 100.0100, L500.4050 ####[facility] [address] [place], [address] Erythrocyte distribution width (RBC) [Ratio] 18.6 % High 11.6-14.6 [facility] Comment on above: Performed By: #### L 100.0100, L500.4050 ####[facility] [address] [place], [address] Hematocrit (Bld) [Volume fraction] 32.5 % Low 37-47 [facility] Comment on above: Performed By: #### L 100.0100, L500.4050 ####[facility] [address] [place], [address] Hemoglobin (Bld) [Mass/Vol] 10.1 g/dL Low 12.0-15.0 [facility] Comment on above: Performed By: #### L 100.0100, L500.4050 ####[facility] [address] [place], [address] IG% 0.600 Normal 0.0-0.9 [facility] Comment on above: Result Comment: IG% - Immature Granulocytes (promyelocytes, myelocytes andmetamyelocytes) > 1% indicates that a LEFT SHIFT is Present. Performed By: #### L 100.0100, L500.4050 ####[facility] [address] [place], [address] Lymphocytes/100 WBC (Bld) 17.1 % Low 19-41 [facility] Comment on above: Performed By: #### L 100.0100, L500.4050 ####[facility] [address] [place], [address] MCH (RBC) [Entitic mass] 27.1 pg Normal 27.0-32.0 [facility] Comment on above: Performed By: #### L 100.0100, L500.4050 ####[facility] [address] [place], [address] MCHC (RBC) [Mass/Vol] 31.1 g/dL Low 32-36 [facility] Comment on above: Performed By: #### L 100.0100, L500.4050 ####[facility] [address] [place], [address] MCV (RBC) [Entitic vol] 87.1 fL Normal 81-99 [facility] Comment on above: Performed By: #### L 100.0100, L500.4050 ####[facility] [address] [place], [address] Monocytes/100 WBC (Bld) 7.4 % Normal 0-10 [facility] Comment on above: Performed By: #### L 100.0100, L500.4050 ####[facility] [address] [place], [address] Neutrophils/100 WBC (Bld) 72.0 % High 47-70 [facility] Comment on above: Performed By: #### L 100.0100, L500.4050 ####[facility] [address] [place], [address] Nucleated RBC (Bld) [#/Vol] 0 10*3/uL Normal 0-5 [facility] Comment on above: Performed By: #### L 100.0100, L500.4050 ####[facility] [address] [place], [address] Platelet mean volume (Bld) [Entitic vol] 9.0 fL Normal 6.2-12.0 [facility] Comment on above: Performed By: #### L 100.0100, L500.4050 ####[facility] [address] [place], [address] Platelets (Bld) [#/Vol] 561 10*3/uL High 150-450 [facility] Comment on above: Performed By: #### L 100.0100, L500.4050 ####[facility] [address] [place], [address] RBC (Bld) [#/Vol] 3.73 10*6/uL Low 4.2-5.4 [facility] Comment on above: Performed By: #### L 100.0100, L500.4050 ####[facility] [address] [place], [address] RDW SD 59.0 fl High 35.1-43.9 [facility] Comment on above: Performed By: #### L 100.0100, L500.4050 ####[facility] [address] [place], [address] WBC (Bld) [#/Vol] 12.7 10*3/uL High 4.4-11.0 [facility] Comment on above: Performed By: #### L 100.0100, L500.4050 ####[facility] [address] [place], [address] CDIFF (PCR)on 09-18-2024 CDIFF Normal [facility] Comment on above: Performed By: #### M 100.6796, M100.637 ####[facility] [address] [place], [address] Clostridium difficile detect ion by polymerase chain reactionOrdered By: Jailyn Wiggins on 09-18-2024 C. difficile DNA JUAN+probe Ql (Unsp spec) [facility] Comprehensive Metabolic Prof ilon 09-18-2024 Albumin [Mass/Vol] 3.8 g/dL Normal 3.4-4.8 [facility] Comment on above: Performed By: #### L 100.0100, L500.4050 ####[facility] [address] [place], [address] Albumin/Globulin [Mass ratio] 1.4 {ratio} Normal 0.9-2.4 [facility] Comment on above: Performed By: #### L 100.0100, L500.4050 ####[facility] [address] [place], [address] ALK PHOS 107 U/L High 35-104 [facility] Comment on above: Performed By: #### L 100.0100, L500.4050 ####[facility] [address] [place], [address] ALT [Catalytic activity/Vol] 14 U/L Normal <=34 [facility] Comment on above: Performed By: #### L 100.0100, L500.4050 ####[facility] [address] [place], [address] AST [Catalytic activity/Vol] 14 U/L Normal <=31 [facility] Comment on above: Performed By: #### L 100.0100, L500.4050 ####[facility] [address] [place], [address] Bilirubin [Mass/Vol] 0.22 mg/dL Normal 0.00-1.30 [facility] Comment on above: Performed By: #### L 100.0100, L500.4050 ####[facility] [address] [place], [address] BUN/CRE 22.5 RATIO High 10-20 [facility] Comment on above: Performed By: #### L 100.0100, L500.4050 ####[facility] [address] [place], [address] Calcium [Mass/Vol] 8.4 mg/dL Normal 7.6-11.0 [facility] Comment on above: Performed By: #### L 100.0100, L500.4050 ####[facility] [address] [place], [address] Chloride [Moles/Vol] 102 mmol/L Normal 98-108 [facility] Comment on above: Performed By: #### L 100.0100, L500.4050 ####[facility] [address] [place], [address] CO2 [Moles/Vol] 16.3 mmol/L Low 21.0-32.0 [facility] Comment on above: Performed By: #### L 100.0100, L500.4050 ####[facility] [address] [place], [address] Creatinine [Mass/Vol] 1.58 mg/dL High 0.70-1.20 [facility] Comment on above: Performed By: #### L 100.0100, L500.4050 ####[facility] [address] [place], [address] ECRCL 29.39 ml/min Low 50-250 [facility] Comment on above: Performed By: #### L 100.0100, L500.4050 ####[facility] [address] [place], [address] GAP 13 Normal 5-15 [facility] Comment on above: Performed By: #### L 100.0100, L500.4050 ####[facility] [address] [place], [address] GFR/1.73 sq M.predicted among non-blacks MDRD (S/P/Bld) [Vol rate/Area] 35 mL/min/{1.73_m2} Low >60 [facility] Comment on above: Result Comment: mL/m in/1.73m2 CKD-EPI Creatinine Equation (2020) Performed By: #### L 100.0100, L500.4050 ####[facility] [address] [place], [address] Globulin (S) [Mass/Vol] 2.8 g/dL Normal 2.2-4.2 [facility] Comment on above: Performed By: #### L 100.0100, L500.4050 ####[facility] [address] [place], [address] Glucose [Mass/Vol] 168 mg/dL High 70-99 [facility] Comment on above: Performed By: #### L 100.0100, L500.4050 ####[facility] [address] [place], [address] Potassium [Moles/Vol] 4.4 mmol/L Normal 3.3-5.1 [facility] Comment on above: Performed By: #### L 100.0100, L500.4050 ####[facility] [address] [place], [address] Sodium [Moles/Vol] 131 mmol/L Low 133-145 [facility] Comment on above: Performed By: #### L 100.0100, L500.4050 ####[facility] [address] [place], [address] T PROT 6.6 g/dL Normal 5.9-8.4 [facility] Comment on above: Performed By: #### L 100.0100, L500.4050 ####[facility] [address] [place], [address] Urea nitrogen [Mass/Vol] 36 mg/dL High 4-19 [facility] Comment on above: Performed By: #### L 100.0100, L500.4050 ####[facility] [address] [place], [address] Consultation - Surgicalon Consultation - Surgical Normal [facility] ENTERIC PATHOGEN PANEL STOOL on 09-18-2024 EP PANEL Normal [facility] Comment on above: Performed By: #### M 100.6796, M100.637 ####[facility] [address] [place], [address] Ferritinon 09-18-2024 Ferritin [Mass/Vol] 21 ng/mL Low 22-378 [facility] Comment on above: Performed By: #### L 100.9950, L503.6030, L503.6550 ####[facility] [address] [place], [address] Iron measurement (mass/mass) Ordered By: Bassem Schwartz on 09-18-2024 Iron (Unsp spec) [Mass/Mass] 25 ug/dL Low 50-170 [facility] Iron+Iron Binding Capacityon 09-18-2024 Iron [Mass/Vol] 25 ug/dL Low 50-170 [facility] Comment on above: Performed By: #### L 100.9950, L503.6030, L503.6550 ####[facility] [address] [place], [address] IRON SATURATION 6.0 Low 13-59 [facility] Comment on above: Performed By: #### L 100.9950, L503.6030, L503.6550 ####[facility] [address] [place], [address] TIBC 384 ug/dL Normal 250-450 [facility] Comment on above: Performed By: #### L 100.9950, L503.6030, L503.6550 ####[facility] [address] [place], [address] UIBC 359 ug/dL Normal 228-428 [facility] Comment on above: Performed By: #### L 100.9950, L503.6030, L503.6550 ####[facility] [address] [place], [address] Lactic Acidon 09-18-2024 Lactate [Moles/Vol] 2.0 mmol/L Normal 0.0-2.0 [facility] Comment on above: Result Comment: Crit ical Result(s) Called at: 0117 by: TARAN RAMIREZ??Results read back by same. Performed By: #### L 503.6005 ####[facility] [address] [place], [address] No Panel InformationOrdered By: Bassem Schwartz on 09-18-2024 359 ug/dL 228-428 [facility] Retic Panelon 09-18-2024 IM RET FRACTION 14.60 Normal 3.00-15.90 [facility] Comment on above: Performed By: #### L 100.9950, L503.6030, L503.6550 ####[facility] [address] [place], [address] RET-HE 27.8 pg Low 30-35 [facility] Comment on above: Performed By: #### L 100.9950, L503.6030, L503.6550 ####[facility] [address] [place], [address] Retic Count 1.98 High 0.5-1.5 [facility] Comment on above: Performed By: #### L 100.9950, L503.6030, L503.6550 ####[facility] [address] [place], [address] Reticulocyte hemoglobin equi valent (RET-He) measurementOrdered By: Bassem Schwartz on 09-18-2024 Hemoglobin (Reticulocytes) [Entitic mass] 27.8 pg Low 30-35 [facility] Reticulocytes Auto (Bld) [#/ Vol]Ordered By: Bassem Schwartz on 09-18-2024 Reticulocytes/100 RBC (Bld) 1.98 % High 0.5-1.5 [facility] Serum or plasma ferritin joshua surement (mass/volume)Ordered By: Bassem Schwartz on 09-18-2024 Ferritin [Mass/Vol] 21 ng/mL Low 22-378 [facility] Serum or plasma iron saturat ion measurement (mass fraction)Ordered By: Bassem Schwartz on 09-18-2024 Iron saturation [Mass fraction] 6.0 % Low 13-59 [facility] ALP [Catalytic activity/Vol] Ordered By: Carrillo Lenz on 09-17-2024 Serum or plasma alkaline phosphatase measurement 160 U/L High 35-104 [facility] Abdomen/Pelvis W IV Cont ONL Yon 09-17-2024 Abdomen/Pelvis W IV Cont ONLY Normal [facility] Absolute neutrophil countOrd ered By: Carrillo Lenz on 09-17-2024 Absolute neutrophil count 14.5 X10^3/uL High 2.0-7.7 [facility] Activated partial thrombopla stin time (aPTT) in platelet poor plasma by coagulation aOrdered By: Carrillo Lenz on 09-17-2024 aPTT Coag (PPP) [Time] 25.4 s 24.1-36.2 [facility] Albumin [Mass/Vol]Ordered By : Carrillo Lenz on 09-17-2024 Serum or plasma albumin measurement (mass/volume) 5.0 g/dL High 3.4-4.8 [facility] Albumin/Globulin [Mass ratio ]Ordered By: Carrillo Lenz on 09-17-2024 Serum or plasma albumin/globulin mass ratio 1.1 RATIO 0.9-2.4 [facility] Anion gap [Moles/Vol]Ordered By: Carrillo Lenz on 09-17-2024 Anion gap in Serum or Plasma 17 High 5-15 [facility] Arterial patency Wrist arter y --pre arterial punctureOrdered By: ED PROVIDER on 09-17-2024 Assessment of wrist artery patency prior to arterial puncture Positive [facility] Assessment of wrist artery p atency prior to arterial punctureOrdered By: ED PROVIDER on 09-17-2024 Arterial patency Wrist artery --pre arterial puncture Positive [facility] BUN/creatinine ratioOrdered By: Carrillo Lenz on 09-17-2024 BUN/creatinine ratio 20.5 RATIO High 10-20 [facility] Base excess Calc (BldV) [Mol es/Vol]Ordered By: ED PROVIDER on 09-17-2024 Blood base excess determination -9 mmol/L Low -2-2 [facility] Basophil percentageOrdered B y: Carrillo Lenz on 09-17-2024 Basophil percentage 0.4 % 0-1 [facility] Beta hydroxybutyrate [Mass/V ol]Ordered By: Carrillo Lenz on 09-17-2024 Beta-hydroxybutyrate 0.1 mmol/L 0.0-0.3 [facility] Beta-Hydroxbytyrateon 2024 BETA-HYDROXYBUT 0.1 mmol/L Normal 0.0-0.3 [facility] Comment on above: Performed By: #### L 100.0100, L300.3900, L300.4310, L500.4050, L501.2450, L501.6901, L503.6005 ####[facility] [address] [place], [address] Beta-hydroxybutyrateOrdered By: Carrillo Lenz on 09-17-2024 Beta hydroxybutyrate [Mass/Vol] 0.1 mmol/L 0.0-0.3 [facility] Bilirubin Test strip Ql (U)O rdered By: Carrillo Lenz on 09-17-2024 Bilirubin Ql (U) Negative Negative [facility] Bilirubin, totalOrdered By: Carrillo Lenz on 09-17-2024 Bilirubin, total 0.40 mg/dL 0.00-1.30 [facility] Blood Gases by CPSon 025 JOON TEST Positive Normal [facility] Comment on above: Performed By: #### L 9000.0800 ####[facility] [address] [place], [address] Base excess Calc (Bld) [Moles/Vol] -9 mmol/L Low -2 to +2 [facility] Comment on above: Performed By: #### L 9000.0800 ####[facility] [address] [place], [address] Blood Gas Type ART Normal [facility] Comment on above: Performed By: #### L 9000.0800 ####[facility] [address] [place], [address] CO2 [Moles/Vol] 19 mmol/L Normal [facility] Comment on above: Performed By: #### L 9000.0800 ####[facility] [address] [place], [address] HCO3 (Bld) [Moles/Vol] 17.7 mmol/L Low 22-26 [facility] Comment on above: Performed By: #### L 9000.0800 ####[facility] [address] [place], [address] Mode Not entered Normal [facility] Comment on above: Performed By: #### L 9000.0800 ####[facility] [address] [place], [address] O2 Delivery Dev Room Air Normal [facility] Comment on above: Performed By: #### L 9000.0800 ####[facility] [address] [place], [address] pCO2 39.0 mmHg Normal 35-45 [facility] Comment on above: Performed By: #### L 9000.0800 ####[facility] [address] [place], [address] pH (Bld) 7.27 [pH] Low 7.35-7.45 [facility] Comment on above: Performed By: #### L 9000.0800 ####[facility] [address] [place], [address] PO2 80 mmHG Normal 75-100 [facility] Comment on above: Performed By: #### L 9000.0800 ####[facility] [address] [place], [address] SITE L Radial Normal [facility] Comment on above: Performed By: #### L 9000.0800 ####[facility] [address] [place], [address] SO2 94 Low 95-99 [facility] Comment on above: Performed By: #### L 9000.0800 ####[facility] [address] [place], [address] Blood base excess determinat ionOrdered By: ED PROVIDER on 09-17-2024 Base excess Calc (BldV) [Moles/Vol] -9 mmol/L Low -2-2 [facility] Blood bicarbonate measuremen tOrdered By: ED PROVIDER on 09-17-2024 HCO3 (Bld) [Moles/Vol] 17.7 mmol/L Low - W [facility] Blood bicarbonate measurement 17.7 mmol/L Low - [facility] CBC W/Diff, Automatedon 04 Absolute Lymph 1.29 X10 3/uL Normal 0.83-4.51 [facility] Comment on above: Performed By: #### L 100.0100, L300.3900, L300.4310, L500.4050, L501.2450, L501.6901, L503.6005 ####[facility] [address] [place], [place], [phone]) Absolute Neut 14.5 X10 3/uL High 2.0-7.7 [facility] Comment on above: Performed By: #### L 100.0100, L300.3900, L300.4310, L500.4050, L501.2450, L501.6901, L503.6005 ####[facility] [address] [place], [place], [phone] Basophils/100 WBC (Bld) 0.4 % Normal 0-1 [facility] Comment on above: Performed By: #### L 100.0100, L300.3900, L300.4310, L500.4050, L501.2450, L501.6901, L503.6005 ####[facility] [address] [place], [address] Eosinophils/100 WBC (Bld) 0.5 % Normal 0-5 [facility] Comment on above: Performed By: #### L 100.0100, L300.3900, L300.4310, L500.4050, L501.2450, L501.6901, L503.6005 ####[facility] [address] [place], [address] Erythrocyte distribution width (RBC) [Ratio] 18.7 % High 11.6-14.6 [facility] Comment on above: Performed By: #### L 100.0100, L300.3900, L300.4310, L500.4050, L501.2450, L501.6901, L503.6005 ####[facility] [address] [place], [address] Hematocrit (Bld) [Volume fraction] 40.4 % Normal 37-47 [facility] Comment on above: Performed By: #### L 100.0100, L300.3900, L300.4310, L500.4050, L501.2450, L501.6901, L503.6005 ####[facility] [address] [place], [address] Hemoglobin (Bld) [Mass/Vol] 13.0 g/dL Normal 12.0-15.0 [facility] Comment on above: Performed By: #### L 100.0100, L300.3900, L300.4310, L500.4050, L501.2450, L501.6901, L503.6005 ####[facility] [address] [place], [address] IG% 0.500 Normal 0.0-0.9 [facility] Comment on above: Result Comment: IG% - Immature Granulocytes (promyelocytes, myelocytes andmetamyelocytes) > 1% indicates that a LEFT SHIFT is Present. Performed By: #### L 100.0100, L300.3900, L300.4310, L500.4050, L501.2450, L501.6901, L503.6005 ####[facility] [address] [place], [address] Lymphocytes/100 WBC (Bld) 7.7 % Low 19-41 [facility] Comment on above: Performed By: #### L 100.0100, L300.3900, L300.4310, L500.4050, L501.2450, L501.6901, L503.6005 ####[facility] [address] [place], [address] MCH (RBC) [Entitic mass] 27.4 pg Normal 27.0-32.0 [facility] Comment on above: Performed By: #### L 100.0100, L300.3900, L300.4310, L500.4050, L501.2450, L501.6901, L503.6005 ####[facility] [address] [place], [address] MCHC (RBC) [Mass/Vol] 32.2 g/dL Normal 32-36 [facility] Comment on above: Performed By: #### L 100.0100, L300.3900, L300.4310, L500.4050, L501.2450, L501.6901, L503.6005 ####[facility] [address] [place], [address] MCV (RBC) [Entitic vol] 85.1 fL Normal 81-99 [facility] Comment on above: Performed By: #### L 100.0100, L300.3900, L300.4310, L500.4050, L501.2450, L501.6901, L503.6005 ####[facility] [address] [place], [address] Monocytes/100 WBC (Bld) 3.6 % Normal 0-10 [facility] Comment on above: Performed By: #### L 100.0100, L300.3900, L300.4310, L500.4050, L501.2450, L501.6901, L503.6005 ####[facility] [address] [place], [address] Neutrophils/100 WBC (Bld) 87.3 % High 47-70 [facility] Comment on above: Performed By: #### L 100.0100, L300.3900, L300.4310, L500.4050, L501.2450, L501.6901, L503.6005 ####[facility] [address] [place], [address] Nucleated RBC (Bld) [#/Vol] 0 10*3/uL Normal 0-5 [facility] Comment on above: Performed By: #### L 100.0100, L300.3900, L300.4310, L500.4050, L501.2450, L501.6901, L503.6005 ####[facility] [address] [place], [address] Platelet mean volume (Bld) [Entitic vol] 8.9 fL Normal 6.2-12.0 [facility] Comment on above: Performed By: #### L 100.0100, L300.3900, L300.4310, L500.4050, L501.2450, L501.6901, L503.6005 ####[facility] [address] [place], [address] Platelets (Bld) [#/Vol] 716 10*3/uL High 150-450 [facility] Comment on above: Performed By: #### L 100.0100, L300.3900, L300.4310, L500.4050, L501.2450, L501.6901, L503.6005 ####[facility] [address] [place], [address] RBC (Bld) [#/Vol] 4.75 10*6/uL Normal 4.2-5.4 [facility] Comment on above: Performed By: #### L 100.0100, L300.3900, L300.4310, L500.4050, L501.2450, L501.6901, L503.6005 ####[facility] [address] [place], [address] RDW SD 58.6 fl High 35.1-43.9 [facility] Comment on above: Performed By: #### L 100.0100, L300.3900, L300.4310, L500.4050, L501.2450, L501.6901, L503.6005 ####[facility] [address] [place], [address] WBC (Bld) [#/Vol] 16.7 10*3/uL High 4.4-11.0 [facility] Comment on above: Performed By: #### L 100.0100, L300.3900, L300.4310, L500.4050, L501.2450, L501.6901, L503.6005 ####[facility] [address] [facility] [place], [address] Calcium [Mass/Vol]Ordered By : Carrillo Lenz on 09-17-2024 Serum or plasma calcium measurement (mass/volume) 10.5 mg/dL 7.6-11.0 [facility] Carbon dioxide, total [Moles /volume] in Central venous bloodOrdered By: Carrillo Lenz on 09-17-2024 Carbon dioxide, total [Moles/volume] in Central venous blood 19.6 mmol/L Low 21.0-32.0 [facility] Chloride assayOrdered By: Bayron Lenz on 09-17-2024 Chloride assay 86 mmol/L Low 98-108 [facility] Clarity (U)Ordered By: Carrillo Lenz on 09-17-2024 Urine clarity Clear Clear [facility] Color (U)Ordered By: Carrillo medina on 09-17-2024 Urine color determination Yellow Yellow [facility] Comprehensive Metabolic Prof ilon 09-17-2024 Albumin [Mass/Vol] 5.0 g/dL High 3.4-4.8 [facility] Comment on above: Performed By: #### L 100.0100, L300.3900, L300.4310, L500.4050, L501.2450, L501.6901, L503.6005 ####[facility] [address] [place], [address] Albumin/Globulin [Mass ratio] 1.1 {ratio} Normal 0.9-2.4 [facility] Comment on above: Performed By: #### L 100.0100, L300.3900, L300.4310, L500.4050, L501.2450, L501.6901, L503.6005 ####[facility] [address] [place], [address] ALK PHOS 160 U/L High 35-104 [facility] Comment on above: Performed By: #### L 100.0100, L300.3900, L300.4310, L500.4050, L501.2450, L501.6901, L503.6005 ####[facility] [address] [place], [address] ALT [Catalytic activity/Vol] 19 U/L Normal <=34 [facility] Comment on above: Performed By: #### L 100.0100, L300.3900, L300.4310, L500.4050, L501.2450, L501.6901, L503.6005 ####[facility] [address] [place], [address] AST [Catalytic activity/Vol] 19 U/L Normal <=31 [facility] Comment on above: Performed By: #### L 100.0100, L300.3900, L300.4310, L500.4050, L501.2450, L501.6901, L503.6005 ####[facility] [address] [place], [address] Bilirubin [Mass/Vol] 0.40 mg/dL Normal 0.00-1.30 [facility] Comment on above: Performed By: #### L 100.0100, L300.3900, L300.4310, L500.4050, L501.2450, L501.6901, L503.6005 ####[facility] [address] [place], [address] BUN/CRE 20.5 RATIO High 10-20 [facility] Comment on above: Performed By: #### L 100.0100, L300.3900, L300.4310, L500.4050, L501.2450, L501.6901, L503.6005 ####[facility] [address] [place], [address] Calcium [Mass/Vol] 10.5 mg/dL Normal 7.6-11.0 [facility] Comment on above: Performed By: #### L 100.0100, L300.3900, L300.4310, L500.4050, L501.2450, L501.6901, L503.6005 ####[facility] [address] [place], [address] Chloride [Moles/Vol] 86 mmol/L Low 98-108 [facility] Comment on above: Performed By: #### L 100.0100, L300.3900, L300.4310, L500.4050, L501.2450, L501.6901, L503.6005 ####[facility] [address] [place], [address] CO2 [Moles/Vol] 19.6 mmol/L Low 21.0-32.0 [facility] Comment on above: Performed By: #### L 100.0100, L300.3900, L300.4310, L500.4050, L501.2450, L501.6901, L503.6005 ####[facility] [address] [place], [address] Creatinine [Mass/Vol] 1.74 mg/dL High 0.70-1.20 [facility] Comment on above: Performed By: #### L 100.0100, L300.3900, L300.4310, L500.4050, L501.2450, L501.6901, L503.6005 ####[facility] [address] [place], [address] ECRCL 26.90 ml/min Low 50-250 [facility] Comment on above: Performed By: #### L 100.0100, L300.3900, L300.4310, L500.4050, L501.2450, L501.6901, L503.6005 ####[facility] [address] [place], [address] GAP 17 High 5-15 [facility] Comment on above: Performed By: #### L 100.0100, L300.3900, L300.4310, L500.4050, L501.2450, L501.6901, L503.6005 ####[facility] [address] [place], [address] GFR/1.73 sq M.predicted among non-blacks MDRD (S/P/Bld) [Vol rate/Area] 32 mL/min/{1.73_m2} Low >60 [facility] Comment on above: Result Comment: mL/m in/1.73m2 CKD-EPI Creatinine Equation (2020) Performed By: #### L 100.0100, L300.3900, L300.4310, L500.4050, L501.2450, L501.6901, L503.6005 ####[facility] [address] [place], [address] Globulin (S) [Mass/Vol] 4.4 g/dL High 2.2-4.2 [facility] Comment on above: Performed By: #### L 100.0100, L300.3900, L300.4310, L500.4050, L501.2450, L501.6901, L503.6005 ####[facility] [address] [place], [address] Glucose [Mass/Vol] 321 mg/dL High 70-99 [facility] Comment on above: Performed By: #### L 100.0100, L300.3900, L300.4310, L500.4050, L501.2450, L501.6901, L503.6005 ####[facility] [address] [place], [address] Potassium [Moles/Vol] 5.7 mmol/L High 3.3-5.1 [facility] Comment on above: Performed By: #### L 100.0100, L300.3900, L300.4310, L500.4050, L501.2450, L501.6901, L503.6005 ####[facility] [address] [place], [address] Sodium [Moles/Vol] 122 mmol/L Low 133-145 [facility] Comment on above: Performed By: #### L 100.0100, L300.3900, L300.4310, L500.4050, L501.2450, L501.6901, L503.6005 ####[facility] [address] [place], [address] T PROT 9.4 g/dL High 5.9-8.4 [facility] Comment on above: Performed By: #### L 100.0100, L300.3900, L300.4310, L500.4050, L501.2450, L501.6901, L503.6005 ####[facility] [address] [place], [address] Urea nitrogen [Mass/Vol] 36 mg/dL High 4-19 [facility] Comment on above: Performed By: #### L 100.0100, L300.3900, L300.4310, L500.4050, L501.2450, L501.6901, L503.6005 ####[facility] [address] [place], [address] Creatinine [Mass/Vol]Ordered By: Carrillo Lenz on 09-17-2024 Serum creatinine measurement (mass/volume) 1.74 mg/dL High 0.70-1.20 [facility] Summary on 09-17-2024 Emergency Department Summary Normal [facility] Eosinophil percentageOrdered By: Carrillo Lenz on 09-17-2024 Eosinophil percentage 0.5 % 0-5 [facility] Epithelial cells.squamous LM Ql (Urine sed)Ordered By: Carrillo Lenz on 09-17-2024 Squamous epithelial cells detection in urine sediment by light microscopy 5-10 SEEN /hpf 5-10 [facility] Erythrocyte distribution wid th (RBC) [Ratio]Ordered By: Carrillo Lenz on 09-17-2024 Erythrocyte distribution width ratio 18.7 % High 11.6-14.6 [facility] Erythrocyte distribution width standard deviation 58.6 fl High 35.1-43.9 [facility] Estimation of creatinine padma aranceOrdered By: Carrillo Lenz on 09-17-2024 Estimation of creatinine clearance 26.90 ml/min Low 50-250 [facility] GFR/1.73 sq M.predicted andrew g non-blacks MDRD (S/P/Bld) [Vol rate/Area]Ordered By: Carrillo Lenz on 09-17-2024 Glomerular filtration rate (GFR) estimation/1.73 sq m using serum, plasma, or whole b 32 Low >60 [facility] Glucose Ql (U)Ordered By: Bayron Lenz on 09-17-2024 Urine glucose detection 100 mg/dl High Normal [facility] Glucose [Mass/Vol]Ordered By : Carrillo Lenz on 09-17-2024 Serum glucose measurement (mass/volume) 321 mg/dL High 70-99 [facility] H AND P Exam - Hospitaliston 09-17-2024 H&P Exam - Hospitalist Normal [facility] Hematocrit Auto (Bld) [Volum e fraction]Ordered By: Carrillo Lenz on 09-17-2024 Automated blood hematocrit (percentage) 40.4 % 37-47 [facility] Hemoglobin measurementOrdere d By: Carrillo Lenz on 09-17-2024 Hemoglobin measurement 13.0 g/dL 12.0-15.0 [facility] Immature granulocytes/100 WB C Auto (Bld)Ordered By: Carrillo Lenz on 09-17-2024 Automated immature granulocyte percentage 0.500 % 0.0-0.9 [facility] International normalized rat io (INR) calculationOrdered By: Carrillo Lenz on 09-17-2024 International normalized ratio (INR) calculation 1.0 [facility] Ketones Test strip Ql (U)Ord ered By: Carrillo Lenz on 09-17-2024 Ketones Ql (U) Negative Negative [facility] Lactic Acidon 09-17-2024 Lactate [Moles/Vol] 2.7 mmol/L Invalid Interpretation Code 0.0-2.0 [facility] Comment on above: Order Comment: Y Result Comment: Crit ical Result(s) Called at: 2035 by: SETH LOWE??Results read back by same. Performed By: #### L 100.0100, L300.3900, L300.4310, L500.4050, L501.2450, L501.6901, L503.6005 ####[facility] [address] [place], [address] Lactic acid measurementOrder ed By: Carrillo Lenz on 09-17-2024 Lactic acid measurement 2.7 mmol/L High 0.0-2.0 [facility] Lipaseon 09-17-2024 Lipase [Catalytic activity/Vol] 37 U/L Normal 13-75 [facility] Comment on above: Result Comment: Adam richardson note:LIPASE revised reference range effective 22.New Lipase methodology. Expected to produce lower valuesthan the previous assay method.NEW Reference Range: 13 - 75 U/L Performed By: #### L 100.0100, L300.3900, L300.4310, L500.4050, L501.2450, L501.6901, L503.6005 ####[facility] [address] [place], [place], [address] Lipase measurementOrdered By : Carrillo Lenz on 09-17-2024 Lipase measurement 37 U/L 13-75 [facility] Lymphocytes Auto (Unsp spec) [#/Vol]Ordered By: Carrillo Lenz on 09-17-2024 Absolute lymphocyte count 1.29 X10^3/uL 0.83-4.51 [facility] Lymphocytes/100 WBC Auto (Un sp spec)Ordered By: Carrillo Lenz on 09-17-2024 Automated lymphocyte count as percentage of total leukocytes 7.7 % Low 19-41 [facility] MCV (RBC) [Entitic vol]Order ed By: Carrillo Lenz on 09-17-2024 MCV (mean corpuscular volume) determination 85.1 fL 81-99 [facility] Magnesiumon 09-17-2024 Magnesium [Mass/Vol] 1.3 mg/dL Low 1.5-2.2 [facility] Comment on above: Order Comment: Comme nts: May add to ED labsComments: may add to ED labs Performed By: #### L 501.2300, L501.5200 ####[facility] [address] [place], [place], [id number] Mean corpuscular hemoglobin (MCH) determinationOrdered By: Carrillo Lenz on 09-17-2024 Mean corpuscular hemoglobin (MCH) determination 27.4 pg 27.0-32.0 [facility] Mean corpuscular hemoglobin concentration (MCHC) determinationOrdered By: Carrillo Lenz on 09-17-2024 Mean corpuscular hemoglobin concentration (MCHC) determination 32.2 g/dL 32-36 [facility] Mean platelet volume determi nationOrdered By: Carrillo Lenz on 09-17-2024 Mean platelet volume determination 8.9 fl 6.2-12.0 [facility] Measurement, pHOrdered By: Trell Mabry PROVIDER on 09-17-2024 pH (Unsp spec) 7.27 [pH] Low 7.35-7.45 [facility] Monocyte percentageOrdered B y: Carrillo eLnz on 09-17-2024 Monocyte percentage 3.6 % 0-10 [facility] Mucus LM Ql (Urine sed)Order ed By: Carrillo Lenz on 09-17-2024 Mucus Ql (Urine sed) 0 SEEN /hpf [facility] Neutrophil percentageOrdered By: Carrillo Lnez on 09-17-2024 Neutrophil percentage 87.3 % High 47-70 [facility] Nitrite Test strip Ql (U)Ord ered By: Carrillo Lenz on 09-17-2024 Nitrite Ql (U) Negative Negative [facility] No Panel InformationOrdered By: ED PROVIDER on 09-17-2024 ART [facility] L Radial [facility] Not entered [facility] Room Air [facility] Nucleated red blood cell per centageOrdered By: Carrillo Lenz on 09-17-2024 Nucleated red blood cell percentage 0 % 0-5 [facility] Oxygen saturation measuremen tOrdered By: ED PROVIDER on 09-17-2024 Oxygen saturation measurement 94 % Low 95-99 [facility] Partial Thromboplast Timeon 09-17-2024 aPTT Coag (Bld) [Time] 25.4 s Normal 24.1-36.2 [facility] Comment on above: Performed By: #### L 100.0100, L300.3900, L300.4310, L500.4050, L501.2450, L501.6901, L503.6005 ####[facility] [address] [place], [address] Partial pressure of carbon d ioxide measurementOrdered By: ED PROVIDER on 09-17-2024 Partial pressure of carbon dioxide measurement 39.0 mmHg 35-45 [facility] Partial pressure of oxygen m easurementOrdered By: ED PROVIDER on 09-17-2024 Partial pressure of oxygen measurement 80 mmHG 75-100 [facility] Phosphoruson 09-17-2024 Phosphate [Mass/Vol] 3.5 mg/dL Normal 2.7-4.5 [facility] Comment on above: Order Comment: Comme nts: May add to ED labsComments: may add to ED labs Performed By: #### L 501.2300, L501.5200 ####[facility] [address] [place], [address] Platelet countOrdered By: Bayron Lenz on 09-17-2024 Platelet count 716 K/mm3 High 150-450 [facility] Potassium (Unsp spec) [Mass/ Vol]Ordered By: Carrillo Lenz on 09-17-2024 Potassium measurement (mass/volume) 5.7 mmol/L High 3.3-5.1 [facility] Protein Test strip Ql (U)Ord ered By: Carrillo Lenz on 09-17-2024 Protein Ql (U) 30 mg/dl High Negative [facility] Urine protein assay by test strip, semi-quantitative 30 mg/dl High Negative [facility] Prothrombin Time w/INRon INR Coag (PPP) [Relative time] 1.0 {INR} Normal [facility] Comment on above: Performed By: #### L 100.0100, L300.3900, L300.4310, L500.4050, L501.2450, L501.6901, L503.6005 ####[facility] [address] [place], [address] Prothrombin timeOrdered By: Carrillo Lenz on 09-17-2024 PT Coag (PPP) [Time] 13.4 s Normal 11.7-14.9 [facility] Comment on above: Performed By: #### L 100.0100, L300.3900, L300.4310, L500.4050, L501.2450, L501.6901, L503.6005 ####[facility] [address] [place], [address] Prothrombin time 13.4 SECONDS 11.7-14.9 [facility] RBC Auto (Bld) [#/Vol]Ordere d By: Carrillo Lenz on 09-17-2024 Automated blood erythrocyte count 4.75 M/mm3 4.2-5.4 [facility] Serum globulin measurementOr dered By: Carrillo Lenz on 09-17-2024 Serum globulin measurement 4.4 g/dL High 2.2-4.2 [facility] Serum or plasma alanine reese otransferase (ALT) measurementOrdered By: Carrillo Lenz on 09-17-2024 Serum or plasma alanine aminotransferase (ALT) measurement 19 U/L <35 [facility] Sodium levelOrdered By: Carrillo Lenz on 09-17-2024 Sodium level 122 mmol/L Low 133-145 [facility] Specific gravity (U) [Rel de nsity]Ordered By: Carrillo Lenz on 09-17-2024 Urine specific gravity measurement 1.015 1.002-1.03 0 [facility] Squamous epithelial cells de tection in urine sediment by light microscopyOrdered By: Carrillo Lenz on 09-17-2024 Epithelial cells.squamous LM Ql (Urine sed) 5-10 SEEN /hpf 5-10 [facility] Total carbon dioxide measure mentOrdered By: ED PROVIDER on 09-17-2024 CO2 [Moles/Vol] 19 mmol/L [facility] Total carbon dioxide measurement 19 mmol/L [facility] Total proteinOrdered By: Erica Lenz on 09-17-2024 Total protein 9.4 g/dL High 5.9-8.4 [facility] Urea nitrogen [Mass/Vol]Orde red By: Carrillo Lenz on 09-17-2024 Serum or plasma urea nitrogen measurement (mass/volume) 36 mg/dL High 4-19 [facility] Urinalysis, Completeon 09-17 EPI,SQUAMOUS 5-10 SEEN Normal 5-10 [facility] Comment on above: Order Comment: CLEAN CATCH Performed By: #### L 400.0001 ####[facility] [address] [place], [place], [id number] RBC 0-5 SEEN Normal 0-5 [facility] Comment on above: Order Comment: CLEAN CATCH Performed By: #### L 400.0001 ####[facility] [address] [place], [place], [id number] WBC 0-5 SEEN Normal 0-5 [facility] Comment on above: Order Comment: CLEAN CATCH Performed By: #### L 400.0001 ####[facility] [address] [place], [address] BACTERIA 0 SEEN Normal None Seen [facility] Comment on above: Order Comment: CLEAN CATCH Performed By: #### L 400.0001 ####[facility] [address] [place], [address] Mucus Ql (Urine sed) 0 SEEN Normal [facility] Comment on above: Order Comment: CLEAN CATCH Performed By: #### L 400.0001 ####[facility] [address] [place], [place], [id number] Urine clarityOrdered By: Erica Lenz on 09-17-2024 Clarity (U) Clear Clear [facility] Urine color determinationOrd ered By: Carrillo Lenz on 09-17-2024 Color (U) Yellow Yellow [facility] Urine glucose detectionOrder ed By: Carrillo Lenz on 09-17-2024 Glucose Ql (U) 100 mg/dl High Normal [facility] Urine leukocyte esterase det ection by dipstickOrdered By: Carrillo Lenz on 09-17-2024 Leukocyte esterase Test strip Ql (U) Negative Negative [facility] Urine pHOrdered By: Carrillo conner on 09-17-2024 pH (U) 6.0 [pH] 5.0 - 8.0 [facility] Urine sediment bacteria coun t by microscopy (number/high power field)Ordered By: Carrillo Lenz on 09-17-2024 Bacteria LM.HPF (Urine sed) [#/Area] 0 /[HPF] None Seen [facility] Urine sediment bacteria count by microscopy (number/high power field) 0 SEEN /hpf [facility] Urine specific gravity measu rementOrdered By: Carrillo Lenz on 09-17-2024 Specific gravity (U) [Rel density] 1.015 1.002-1.03 0 [facility] Urine total bilirubin detect ion by test stripOrdered By: Carrillo Lenz on 09-17-2024 Urine total bilirubin detection by test strip Negative Negative [facility] Urine urobilinogen measureme ntOrdered By: Carrillo Lenz on 09-17-2024 Urobilinogen Ql (U) Normal mg/dl Normal [facility] Urobilinogen Ql (U)Ordered B y: Carrillo Lenz on 09-17-2024 Urine urobilinogen measurement Normal mg/dl Normal [facility] White blood cell (WBC) count Ordered By: Carrillo Lenz on 09-17-2024 White blood cell (WBC) count 16.7 K/mm3 High 4.4-11.0 [facility] White blood cell countOrdere d By: Carrillo Lenz on 09-17-2024 White blood cell count 0-5 SEEN /hpf 0-5 [facility] White blood cell count 0-5 SEEN /hpf 0-5 [facility] aPTT Coag (PPP) [Time]Ordere d By: Carrillo Lenz on 09-17-2024 Activated partial thromboplastin time (aPTT) in platelet poor plasma by coagulation a 25.4 Seconds 24.1-36.2 [facility] pH (U)Ordered By: Carrillo frey on 09-17-2024 Urine pH 6.0 5.0 - 8.0 [facility] pH (Unsp spec)Ordered By: ED PROVIDER on 09-17-2024 Measurement, pH 7.27 Low 7.35-7.45 [facility] ALP [Catalytic activity/Vol] Ordered By: Denise Uribe on 07-24-2024 Serum or plasma alkaline phosphatase measurement 123 U/L High 35-104 [facility] ALT [Catalytic activity/Vol] Ordered By: Denise Uribe on 07-24-2024 Serum or plasma alanine aminotransferase (ALT) measurement 7 U/L <35 [facility] Absolute lymphocyte countOrd ered By: Denise Uribe on 07-24-2024 Lymphocytes Auto (Unsp spec) [#/Vol] 2.18 10*3/uL 0.83-4.51 [facility] Absolute neutrophil countOrd ered By: Denise Uribe on 07-24-2024 Absolute neutrophil count 8.0 X10^3/uL High 2.0-7.7 [facility] Albumin [Mass/Vol]Ordered By : Denise Uribe on 07-24-2024 Serum or plasma albumin measurement (mass/volume) 4.0 g/dL 3.4-4.8 [facility] Albumin/Globulin [Mass ratio ]Ordered By: Denise Uribe on 07-24-2024 Serum or plasma albumin/globulin mass ratio 1.2 RATIO 0.9-2.4 [facility] Anion gap [Moles/Vol]Ordered By: Denise Uribe on 07-24-2024 Anion gap in Serum or Plasma 15 5- [facility] Anion gap in Serum or Plasma Ordered By: Denisemario Uribe on 07-24-2024 Anion gap [Moles/Vol] 15 mmol/L 10-03 [facility] Automated lymphocyte count a s percentage of total leukocytesOrdered By: Denise Uribe on 07-24-2024 Lymphocytes/100 WBC Auto (Unsp spec) 19.2 % 19-41 [facility] BUN/creatinine ratioOrdered By: Denise Uribe on 07-24-2024 Urea nitrogen/Creatinine [Mass ratio] 16.4 mg/mg 10- [facility] BUN/creatinine ratio 16.4 RATIO 10-20 [facility] Basophil percentageOrdered B y: Denise Uribe on 07-24-2024 Basophils/100 WBC (Bld) 0.4 % 0-1 [facility] Basophil percentage 0.4 % 0-1 [facility] Bilirubin, totalOrdered By: Denise Uribe on 07-24-2024 Bilirubin [Mass/Vol] 0.28 mg/dL 0.00-1.30 [facility] Bilirubin, total 0.28 mg/dL 0.00-1.30 [facility] CBC W/Diff, Automatedon Absolute Lymph 2.18 X10 3/uL Normal 0.83-4.51 [facility] Comment on above: Performed By: #### L 100.0100, L500.4050, L503.0106, L503.6030, L503.6550, L506.1001 ####[facility] [address] [place], [address] Absolute Neut 8.0 X10 3/uL High 2.0-7.7 [facility] Comment on above: Performed By: #### L 100.0100, L500.4050, L503.0106, L503.6030, L503.6550, L506.1001 ####[facility] [address] [place], [address] Basophils/100 WBC (Bld) 0.4 % Normal 0-1 [facility] Comment on above: Performed By: #### L 100.0100, L500.4050, L503.0106, L503.6030, L503.6550, L506.1001 ####[facility] [address] [place], [address] Eosinophils/100 WBC (Bld) 2.2 % Normal 0-5 [facility] Comment on above: Performed By: #### L 100.0100, L500.4050, L503.0106, L503.6030, L503.6550, L506.1001 ####[facility] [address] [place], [address] Erythrocyte distribution width (RBC) [Ratio] 17.5 % High 11.6-14.6 [facility] Comment on above: Performed By: #### L 100.0100, L500.4050, L503.0106, L503.6030, L503.6550, L506.1001 ####[facility] [address] [place], [address] Hematocrit (Bld) [Volume fraction] 25.9 % Low 37-47 [facility] Comment on above: Performed By: #### L 100.0100, L500.4050, L503.0106, L503.6030, L503.6550, L506.1001 ####[facility] [address] [place], [address] Hemoglobin (Bld) [Mass/Vol] 8.1 g/dL Low 12.0-15.0 [facility] Comment on above: Performed By: #### L 100.0100, L500.4050, L503.0106, L503.6030, L503.6550, L506.1001 ####[facility] [address] [place], [address] IG% 1.200 High 0.0-0.9 [facility] Comment on above: Result Comment: IG% - Immature Granulocytes (promyelocytes, myelocytes andmetamyelocytes) > 1% indicates that a LEFT SHIFT is Present. Performed By: #### L 100.0100, L500.4050, L503.0106, L503.6030, L503.6550, L506.1001 ####[facility] [address] [place], [address] Lymphocytes/100 WBC (Bld) 19.2 % Normal 19-41 [facility] Comment on above: Performed By: #### L 100.0100, L500.4050, L503.0106, L503.6030, L503.6550, L506.1001 ####[facility] [address] [place], [address] MCH (RBC) [Entitic mass] 27.7 pg Normal 27.0-32.0 [facility] Comment on above: Performed By: #### L 100.0100, L500.4050, L503.0106, L503.6030, L503.6550, L506.1001 ####[facility] [address] [place], [address] MCHC (RBC) [Mass/Vol] 31.3 g/dL Low 32-36 [facility] Comment on above: Performed By: #### L 100.0100, L500.4050, L503.0106, L503.6030, L503.6550, L506.1001 ####[facility] [address] [place], [address] MCV (RBC) [Entitic vol] 88.7 fL Normal 81-99 [facility] Comment on above: Performed By: #### L 100.0100, L500.4050, L503.0106, L503.6030, L503.6550, L506.1001 ####[facility] [address] [place], [address] Monocytes/100 WBC (Bld) 7.0 % Normal 0-10 [facility] Comment on above: Performed By: #### L 100.0100, L500.4050, L503.0106, L503.6030, L503.6550, L506.1001 ####[facility] [address] [place], [address] Neutrophils/100 WBC (Bld) 70.0 % Normal 47-70 [facility] Comment on above: Performed By: #### L 100.0100, L500.4050, L503.0106, L503.6030, L503.6550, L506.1001 ####[facility] [address] [place], [address] Nucleated RBC (Bld) [#/Vol] 0.2 10*3/uL Normal 0-5 [facility] Comment on above: Performed By: #### L 100.0100, L500.4050, L503.0106, L503.6030, L503.6550, L506.1001 ####[facility] [address] [place], [address] Platelet mean volume (Bld) [Entitic vol] 9.3 fL Normal 6.2-12.0 [facility] Comment on above: Performed By: #### L 100.0100, L500.4050, L503.0106, L503.6030, L503.6550, L506.1001 ####[facility] [address] [place], [address] Platelets (Bld) [#/Vol] 541 10*3/uL High 150-450 [facility] Comment on above: Performed By: #### L 100.0100, L500.4050, L503.0106, L503.6030, L503.6550, L506.1001 ####[facility] [address] [place], [address] RBC (Bld) [#/Vol] 2.92 10*6/uL Low 4.2-5.4 [facility] Comment on above: Performed By: #### L 100.0100, L500.4050, L503.0106, L503.6030, L503.6550, L506.1001 ####[facility] [address] [place], [address] RDW SD 56.3 fl High 35.1-43.9 [facility] Comment on above: Performed By: #### L 100.0100, L500.4050, L503.0106, L503.6030, L503.6550, L506.1001 ####[facility] [address] [place], [address] WBC (Bld) [#/Vol] 11.4 10*3/uL High 4.4-11.0 [facility] Comment on above: Performed By: #### L 100.0100, L500.4050, L503.0106, L503.6030, L503.6550, L506.1001 ####[facility] [address] [place], [address] Calcium [Mass/Vol]Ordered By : Denise Uribe on 07-24-2024 Serum or plasma calcium measurement (mass/volume) 9.0 mg/dL 7.6-11.0 [facility] Calculated total iron bindin g capacityOrdered By: Denise Uribe on 07-24-2024 Calculated total iron binding capacity 449 ug/dL 250-450 [facility] Carbon dioxide, total [Moles /volume] in Central venous bloodOrdered By: Denise Uribe on 07-24-2024 CO2 [Moles/Vol] 23.7 mmol/L 21.0-32.0 [facility] Carbon dioxide, total [Moles/volume] in Central venous blood 23.7 mmol/L 21.0-32.0 [facility] Chloride assayOrdered By: Jann Uribe on 07-24-2024 Chloride [Moles/Vol] 93 mmol/L Low 98-108 [facility] Chloride assay 93 mmol/L Low 98-108 [facility] Cobalamin (Vitamin B12) [Mas s/Vol]Ordered By: Denise Uribe on 07-24-2024 Vitamin B12 ser/plas 639 pg/mL 180-914 [facility] Comprehensive Metabolic Prof ilon 07-24-2024 Albumin [Mass/Vol] 4.0 g/dL Normal 3.4-4.8 [facility] Comment on above: Performed By: #### L 100.0100, L500.4050, L503.0106, L503.6030, L503.6550, L506.1001 ####[facility] [address] [place], [address] Albumin/Globulin [Mass ratio] 1.2 {ratio} Normal 0.9-2.4 [facility] Comment on above: Performed By: #### L 100.0100, L500.4050, L503.0106, L503.6030, L503.6550, L506.1001 ####[facility] [address] [place], [address] ALK PHOS 123 U/L High 35-104 [facility] Comment on above: Performed By: #### L 100.0100, L500.4050, L503.0106, L503.6030, L503.6550, L506.1001 ####[facility] [address] [place], [address] ALT [Catalytic activity/Vol] 7 U/L Normal <=34 [facility] Comment on above: Performed By: #### L 100.0100, L500.4050, L503.0106, L503.6030, L503.6550, L506.1001 ####[facility] [address] [place], [address] AST [Catalytic activity/Vol] 19 U/L Normal <=31 [facility] Comment on above: Performed By: #### L 100.0100, L500.4050, L503.0106, L503.6030, L503.6550, L506.1001 ####[facility] [address] [place], [address] Bilirubin [Mass/Vol] 0.28 mg/dL Normal 0.00-1.30 [facility] Comment on above: Performed By: #### L 100.0100, L500.4050, L503.0106, L503.6030, L503.6550, L506.1001 ####[facility] [address] [place], [address] BUN/CRE 16.4 RATIO Normal 10-20 [facility] Comment on above: Performed By: #### L 100.0100, L500.4050, L503.0106, L503.6030, L503.6550, L506.1001 ####[facility] [address] [place], [address] Calcium [Mass/Vol] 9.0 mg/dL Normal 7.6-11.0 [facility] Comment on above: Performed By: #### L 100.0100, L500.4050, L503.0106, L503.6030, L503.6550, L506.1001 ####[facility] [address] [place], [address] Chloride [Moles/Vol] 93 mmol/L Low 98-108 [facility] Comment on above: Performed By: #### L 100.0100, L500.4050, L503.0106, L503.6030, L503.6550, L506.1001 ####[facility] [address] [place], [address] CO2 [Moles/Vol] 23.7 mmol/L Normal 21.0-32.0 [facility] Comment on above: Performed By: #### L 100.0100, L500.4050, L503.0106, L503.6030, L503.6550, L506.1001 ####[facility] [address] [place], [address] Creatinine [Mass/Vol] 1.16 mg/dL Normal 0.70-1.20 [facility] Comment on above: Performed By: #### L 100.0100, L500.4050, L503.0106, L503.6030, L503.6550, L506.1001 ####[facility] [address] [place], [address] GAP 15 Normal 5-15 [facility] Comment on above: Performed By: #### L 100.0100, L500.4050, L503.0106, L503.6030, L503.6550, L506.1001 ####[facility] [address] [place], [address] GFR/1.73 sq M.predicted among non-blacks MDRD (S/P/Bld) [Vol rate/Area] 51 mL/min/{1.73_m2} Low >60 [facility] Comment on above: Result Comment: mL/m in/1.73m2 CKD-EPI Creatinine Equation (2020) Performed By: #### L 100.0100, L500.4050, L503.0106, L503.6030, L503.6550, L506.1001 ####[facility] [address] [place], [address] Globulin (S) [Mass/Vol] 3.3 g/dL Normal 2.2-4.2 [facility] Comment on above: Performed By: #### L 100.0100, L500.4050, L503.0106, L503.6030, L503.6550, L506.1001 ####[facility] [address] [place], [address] Glucose [Mass/Vol] 196 mg/dL High 70-99 [facility] Comment on above: Performed By: #### L 100.0100, L500.4050, L503.0106, L503.6030, L503.6550, L506.1001 ####[facility] [address] [place], [address] Potassium [Moles/Vol] 4.5 mmol/L Normal 3.3-5.1 [facility] Comment on above: Performed By: #### L 100.0100, L500.4050, L503.0106, L503.6030, L503.6550, L506.1001 ####[facility] [address] [place], [address] Sodium [Moles/Vol] 132 mmol/L Low 133-145 [facility] Comment on above: Performed By: #### L 100.0100, L500.4050, L503.0106, L503.6030, L503.6550, L506.1001 ####[facility] [address] [place], [address] T PROT 7.3 g/dL Normal 5.9-8.4 [facility] Comment on above: Performed By: #### L 100.0100, L500.4050, L503.0106, L503.6030, L503.6550, L506.1001 ####[facility] [address] [place], [place], [id number] Urea nitrogen [Mass/Vol] 19 mg/dL Normal 4-19 [facility] Comment on above: Performed By: #### L 100.0100, L500.4050, L503.0106, L503.6030, L503.6550, L506.1001 ####[facility] [address] [facility] [address] [place], [place], [id number] Creatinine [Mass/Vol]Ordered By: Denise Uribe on 07-24-2024 Serum creatinine measurement (mass/volume) 1.16 mg/dL 0.70-1.20 [facility] Eosinophil percentageOrdered By: Denise Uribe on 07-24-2024 Eosinophils/100 WBC (Bld) 2.2 % 0-5 [facility] Eosinophil percentage 2.2 % 0-5 [facility] Erythrocyte distribution wid th (RBC) [Ratio]Ordered By: Denise Uribe on 07-24-2024 Erythrocyte distribution width ratio 17.5 % High 11.6-14.6 [facility] Erythrocyte distribution wid th ratioOrdered By: Denise Uribe on 07-24-2024 Erythrocyte distribution width (RBC) [Ratio] 17.5 % High 11.6-14.6 [facility] Erythrocyte distribution wid th standard deviationOrdered By: Denise Uribe on 07-24-2024 Erythrocyte distribution width (RBC) [Ratio] 56.3 fl High 35.1-43.9 [facility] Erythrocyte distribution width standard deviation 56.3 fl High 35.1-43.9 [facility] Ferritinon 07-24-2024 Ferritin [Mass/Vol] 19 ng/mL Low 22-378 [facility] Comment on above: Performed By: #### L 100.0100, L500.4050, L503.0106, L503.6030, L503.6550, L506.1001 ####[facility] [id number] [place], [address] Ferritin [Mass/Vol]Ordered B y: Denise Uribe on 07-24-2024 Serum or plasma ferritin measurement (mass/volume) 19 ng/mL Low 22-378 [facility] GFR/1.73 sq M.predicted andrew g non-blacks MDRD (S/P/Bld) [Vol rate/Area]Ordered By: Denise Uribe on 07-24-2024 Glomerular filtration rate (GFR) estimation/1.73 sq m using serum, plasma, or whole b 51 Low >60 [facility] Glomerular filtration rate ( GFR) estimation/1.73 sq m using serum, plasma, or whole bOrdered By: Denise Uribe on 07-24-2024 GFR/1.73 sq M.predicted among non-blacks MDRD (S/P/Bld) [Vol rate/Area] 51 mL/min/{1.73_m2} Low >60 [facility] Glucose [Mass/Vol]Ordered By : Denise Uribe on 07-24-2024 Serum glucose measurement (mass/volume) 196 mg/dL High 70-99 [facility] Hematocrit Auto (Bld) [Volum e fraction]Ordered By: Denise Uribe on 07-24-2024 Hematocrit (Bld) [Volume fraction] 25.9 % Low 37-47 [facility] Automated blood hematocrit (percentage) 25.9 % Low 37-47 [facility] Hemoglobin measurementOrdere d By: Denise Uribe on 07-24-2024 Hemoglobin (Bld) [Mass/Vol] 8.1 g/dL Low 12.0-15.0 [facility] Hemoglobin measurement 8.1 g/dL Low 12.0-15.0 [facility] Immature granulocytes/100 WB C Auto (Bld)Ordered By: Denise Uribe on 07-24-2024 Immature granulocytes/100 WBC (Bld) 1.200 % High 0.0-0.9 [facility] Automated immature granulocyte percentage 1.200 % High 0.0-0.9 [facility] Iron (Unsp spec) [Mass/Mass] Ordered By: Denise Uribe on 07-24-2024 Iron measurement (mass/mass) 34 ug/dL Low 50-170 [facility] Iron measurement (mass/mass) Ordered By: Denise Uribe on 07-24-2024 Iron (Unsp spec) [Mass/Mass] 34 ug/dL Low 50-170 [facility] Iron saturation [Mass fracti on]Ordered By: Denise Princelay on 07-24-2024 Serum or plasma iron saturation measurement (mass fraction) 8.0 % Low 15.0-55.0 [facility] Iron+Iron Binding Capacityon 07-24-2024 Iron [Mass/Vol] 34 ug/dL Low 50-170 [facility] Comment on above: Performed By: #### L 100.0100, L500.4050, L503.0106, L503.6030, L503.6550, L506.1001 ####[facility] [address] [place], [address] IRON SATURATION 8.0 Low 15.0-55.0 [facility] Comment on above: Performed By: #### L 100.0100, L500.4050, L503.0106, L503.6030, L503.6550, L506.1001 ####[facility] [address] [place], [address] TIBC 449 ug/dL Normal 250-450 [facility] Comment on above: Performed By: #### L 100.0100, L500.4050, L503.0106, L503.6030, L503.6550, L506.1001 ####[facility] [address] [place], [address] UIBC 415 ug/dL Normal 228-428 [facility] Comment on above: Performed By: #### L 100.0100, L500.4050, L503.0106, L503.6030, L503.6550, L506.1001 ####[facility] [address] [place], [address] L503.0106on 07-24-2024 Cobalamin (Vitamin B12) [Mass/Vol] 639 pg/mL Normal 180-914 [facility] Comment on above: Performed By: #### L 100.0100, L500.4050, L503.0106, L503.6030, L503.6550, L506.1001 ####[facility] [address] [place], [address] L506.1001on 07-24-2024 Vitamin D 25-OH 24.4 ng/mL Low 30-100 [facility] Comment on above: Result Comment: Deborah min D StatusDeficiency: <20 ng/mL (50nmol/L)Insufficiency: 20-30 ng/mL (50-75 nmol/L)Sufficiency: 30-100 ng/mL (75-250 nmol/L)Toxicity: >100 ng/mL (>250 nmol/L) Performed By: #### L 100.0100, L500.4050, L503.0106, L503.6030, L503.6550, L506.1001 ####[facility] [address] [place], [place], [address] Lymphocytes Auto (Unsp spec) [#/Vol]Ordered By: Denise Uribe on 07-24-2024 Absolute lymphocyte count 2.18 X10^3/uL 0.83-4.51 [facility] Lymphocytes/100 WBC Auto (Un sp spec)Ordered By: Denise Uribe on 07-24-2024 Automated lymphocyte count as percentage of total leukocytes 19.2 % 19-41 [facility] MCV (RBC) [Entitic vol]Order ed By: Denise Uribe on 07-24-2024 MCV (mean corpuscular volume) determination 88.7 fL 81-99 [facility] MCV (mean corpuscular volume ) determinationOrdered By: Denise Uribe on 07-24-2024 MCV (RBC) [Entitic vol] 88.7 fL 81-99 [facility] Mean corpuscular hemoglobin (MCH) determinationOrdered By: Denise Uribe on 07-24-2024 MCH (RBC) [Entitic mass] 27.7 pg 27.0-32.0 [facility] Mean corpuscular hemoglobin (MCH) determination 27.7 pg 27.0-32.0 [facility] Mean corpuscular hemoglobin concentration (MCHC) determinationOrdered By: Denise Uribe on 07-24-2024 Mean corpuscular hemoglobin concentration (MCHC) determination 31.3 g/dL Low 32-36 [facility] Mean platelet volume determi nationOrdered By: Denise Uribe on 07-24-2024 Mean platelet volume determination 9.3 fl 6.2-12.0 [facility] Monocyte percentageOrdered B y: Denise Uribe on 07-24-2024 Monocytes/100 WBC (Bld) 7.0 % 0-10 [facility] Monocyte percentage 7.0 % 0-10 [facility] Neutrophil percentageOrdered By: Denise Uribe on 07-24-2024 Neutrophils/100 WBC (Bld) 70.0 % 47-70 [facility] Neutrophil percentage 70.0 % 47-70 [facility] No Panel InformationOrdered By: Denise Uribe on 07-24-2024 19 U/L <32 [facility] 415 ug/dL 228-428 [facility] 9.4 % High 4.2-6.3 [facility] Nucleated red blood cell per centageOrdered By: Denise Uribe on 07-24-2024 Nucleated red blood cell percentage 0.2 % 0-5 [facility] Platelet countOrdered By: Jann Uribe on 07-24-2024 Platelets (Bld) [#/Vol] 541 10*3/uL High 150-450 [facility] Platelet count 541 K/mm3 High 150-450 [facility] Potassium (Unsp spec) [Mass/ Vol]Ordered By: Denise Uribe on 07-24-2024 Potassium measurement (mass/volume) 4.5 mmol/L 3.3-5.1 [facility] Potassium measurement (mass/ volume)Ordered By: Denise Uribe on 07-24-2024 Potassium (Unsp spec) [Mass/Vol] 4.5 mmol/L 3.3-5.1 [facility] RBC Auto (Bld) [#/Vol]Ordere d By: Denise Uribe on 07-24-2024 RBC (Bld) [#/Vol] 2.92 10*6/uL Low 4.2-5.4 [facility] Automated blood erythrocyte count 2.92 M/mm3 Low 4.2-5.4 [facility] Serum creatinine measurement (mass/volume)Ordered By: Denise Uribe on 07-24-2024 Creatinine [Mass/Vol] 1.16 mg/dL 0.70-1.20 [facility] Serum globulin measurementOr dered By: Denise Uribe on 07-24-2024 Globulin (S) [Mass/Vol] 3.3 g/dL 2.2-4.2 [facility] Serum globulin measurement 3.3 g/dL 2.2-4.2 [facility] Serum glucose measurement (m ass/volume)Ordered By: Denise Uribe on 07-24-2024 Glucose [Mass/Vol] 196 mg/dL High 70-99 [facility] Serum or plasma alanine reese otransferase (ALT) measurementOrdered By: Denise Uribe on 07-24-2024 ALT [Catalytic activity/Vol] 7 U/L <35 [facility] Serum or plasma albumin jamey urement (mass/volume)Ordered By: Denise Uribe on 07-24-2024 Albumin [Mass/Vol] 4.0 g/dL 3.4-4.8 [facility] Serum or plasma albumin/glob ulin mass ratioOrdered By: Denise Uribe on 07-24-2024 Albumin/Globulin [Mass ratio] 1.2 {ratio} 0.9-2.4 [facility] Serum or plasma alkaline osman sphatase measurementOrdered By: Denise Uribe on 07-24-2024 ALP [Catalytic activity/Vol] 123 U/L High 35-104 [facility] Serum or plasma calcium jamey urement (mass/volume)Ordered By: Denise Uribe on 07-24-2024 Calcium [Mass/Vol] 9.0 mg/dL 7.6-11.0 [facility] Serum or plasma ferritin joshua surement (mass/volume)Ordered By: Denise Uribe on 07-24-2024 Ferritin [Mass/Vol] 19 ng/mL Low 22-378 [facility] Serum or plasma iron saturat ion measurement (mass fraction)Ordered By: Denise Uribe on 07-24-2024 Iron saturation [Mass fraction] 8.0 % Low 15.0-55.0 [facility] Serum or plasma urea nitroge n measurement (mass/volume)Ordered By: Denise Uribe on 07-24-2024 Urea nitrogen [Mass/Vol] 19 mg/dL - [facility] Sodium levelOrdered By: Misael Uribe on 07-24-2024 Sodium [Moles/Vol] 132 mmol/L Low 133-145 [facility] Sodium level 132 mmol/L Low 133-145 [facility] Total proteinOrdered By: Mina Uribe on 07-24-2024 Protein [Mass/Vol] 7.3 g/dL 5.9-8.4 [facility] Total protein 7.3 g/dL 5.9-8.4 [facility] Urea nitrogen [Mass/Vol]Orde red By: Denise Uribe on 07-24-2024 Serum or plasma urea nitrogen measurement (mass/volume) 19 mg/dL - [facility] Vitamin B12 ser/plasOrdered By: Denise Uribe on 07-24-2024 Cobalamin (Vitamin B12) [Mass/Vol] 639 pg/mL 180-914 [facility] Vitamin D, 25-hydroxyOrdered By: Denise Uribe on 07-24-2024 Vitamin D, 25-hydroxy 24.4 ng/mL Low 30-100 [facility] White blood cell (WBC) count Ordered By: Denise Uribe on 07-24-2024 WBC (Bld) [#/Vol] 11.4 10*3/uL High 4.4-11.0 [facility] White blood cell (WBC) count 11.4 K/mm3 High 4.4-11.0 [facility] Internal Medicine Office Vis chloé 07-23-2024 Internal Medicine Office Visit Normal [facility] Basic Metabolic Profile (BMP )on 06-18-2024 BUN/CRE 13.4 RATIO Normal 10-20 [facility] Comment on above: Performed By: #### L 500.2500, L501.5200 ####[facility] [address] [place], [address] CA,Total 9.4 mg/dL Normal 8.5-10.1 [facility] Comment on above: Performed By: #### L 500.2500, L501.5200 ####[facility] [address] [place], [address] Chloride [Moles/Vol] 104 mmol/L Normal 98-107 [facility] Comment on above: Performed By: #### L 500.2500, L501.5200 ####[facility] [address] [place], [address] CO2 [Moles/Vol] 23.0 mmol/L Normal 21.0-32.0 [facility] Comment on above: Performed By: #### L 500.2500, L501.5200 ####[facility] [address] [place], [address] Creatinine [Mass/Vol] 1.19 mg/dL High 0.55-1.02 [facility] Comment on above: Result Comment: The validity of the calculated GFR GFRAA in patients over70 years has not been determined. Clinical correlation isessential. Performed By: #### L 500.2500, L501.5200 ####[facility] [address] [place], [address] ECRCL 39.44 ml/min Normal [facility] Comment on above: Performed By: #### L 500.2500, L501.5200 ####[facility] [address] [place], [address] EST GFR - AA 58 mL/min Low >60 [facility] Comment on above: Result Comment: Afri can [place] GFR Calc Performed By: #### L 500.2500, L501.5200 ####[facility] [address] [place], [address] GAP 10 Normal 5-15 [facility] Comment on above: Performed By: #### L 500.2500, L501.5200 ####[facility] [address] [place], [address] GFR/1.73 sq M.predicted among non-blacks MDRD (S/P/Bld) [Vol rate/Area] 48 mL/min/{1.73_m2} Low >60 [facility] Comment on above: Result Comment: Non- GFR Calc Performed By: #### L 500.2500, L501.5200 ####[facility] [address] [place], [address] Glucose [Mass/Vol] 145 mg/dL High 74-106 [facility] Comment on above: Result Comment: Fast ing Glucose result greater than or equal to 126 mg/dLsuggests DIABETES MELLITUS per A.D.A. criteria. Performed By: #### L 500.2500, L501.5200 ####[facility] [address] [place], [address] Potassium [Moles/Vol] 4.6 mmol/L Normal 3.5-5.1 [facility] Comment on above: Performed By: #### L 500.2500, L501.5200 ####[facility] [address] [place], [address] Sodium [Moles/Vol] 136 mmol/L Normal 136-145 [facility] Comment on above: Performed By: #### L 500.2500, L501.5200 ####[facility] [address] [place], [address] Urea nitrogen [Mass/Vol] 16 mg/dL Normal 7-18 [facility] Comment on above: Performed By: #### L 500.2500, L501.5200 ####[facility] [address] [place], [address] Bedside Glucoseon 06-18-2024 FINGERSTICK GLU 200 mg/dL High 74-106 [facility] Comment on above: Result Comment: LOURDES GEMENT OF PATIENT CARE PER NURSING PROTOCOL Performed By: #### L 501.080 ####[facility] [address] [place], [address] FINGERSTICK GLU 168 mg/dL High 74-106 [facility] Comment on above: Result Comment: LOURDES GEMENT OF PATIENT CARE PER NURSING PROTOCOL Performed By: #### L 501.080 ####[facility] [address] [place], [address] FINGERSTICK GLU 210 mg/dL High 74-106 [facility] Comment on above: Result Comment: LOURDES GEMENT OF PATIENT CARE PER NURSING PROTOCOL Performed By: #### L 501.080 ####[facility] [address] [place], [address] Blood urea nitrogen (BUN)/cr eatinine ratioOrdered By: Devi Paredes on 06-18-2024 Blood urea nitrogen (BUN)/creatinine ratio 13.4 RATIO 10-20 [facility] Calcium [Mass/Vol]Ordered By : Devi Paredes on 06-18-2024 Serum or plasma calcium measurement (mass/volume) 9.4 mg/dL 8.5-10.1 [facility] Carbon dioxide measurementOr dered By: Devi Paredes on 06-18-2024 Carbon dioxide measurement 23.0 mmol/L 21.0-32.0 [facility] Chloride measurementOrdered By: Devi Paredes on 06-18-2024 Chloride measurement 104 mmol/L 98-107 [facility] Creatinine [Mass/Vol]Ordered By: Devi Paredes on 06-18-2024 Serum or plasma creatinine measurement (mass/volume) 1.19 mg/dL High 0.55-1.02 [facility] Discharge Instructionon 05-23 Discharge Instruction Normal [facility] Estimated glomerular filtrat ion rate (GFR) AmericanOrdered By: Devi Paredes on 06-18-2024 Estimated glomerular filtration rate (GFR) 58 mL/min Low >60 [facility] Estimation of creatinine padma aranceOrdered By: Devi Paredes on 06-18-2024 Estimation of creatinine clearance 39.44 ml/min [facility] Glomerular filtration rate ( GFR) estimationOrdered By: Devi Paredes on 06-18-2024 Glomerular filtration rate (GFR) estimation 48 mL/min Low >60 [facility] Glucose measurementOrdered B y: Devi Paredes on 06-18-2024 Glucose measurement 145 mg/dL [facility] 74-106 [facility] Glucose measurement at bedsi deOrdered By: Devi Paredes on 06-18-2024 Glucose measurement at bedside 200 mg/dL [facility] 74-106 [facility] HH, Hemoglobin AND Hematocri ton 06-18-2024 Hematocrit (Bld) [Volume fraction] 27.3 % Low 37-47 [facility] Comment on above: Performed By: #### L 100.0600 ####[facility] [address] [place], [place], [id number]) Hemoglobin (Bld) [Mass/Vol] 8.6 g/dL Low 12.0-15.0 [facility] Comment on above: Performed By: #### L 100.0600 ####[facility] [address] [place], [address] Hematocrit Auto (Bld) [Volum e fraction]Ordered By: Devi Paredes on 06-18-2024 Automated blood hematocrit (percentage) 27.3 % Low 37-47 [facility] Hemoglobin measurementOrdere d By: Devi Paredes on 06-18-2024 Hemoglobin measurement 8.6 g/dL Low 12.0-15.0 [facility] Magnesiumon 06-18-2024 Magnesium [Mass/Vol] 1.8 mg/dL Normal 1.6-2.6 [facility] Comment on above: Performed By: #### L 500.2500, L501.5200 ####[facility] [address] [place], [address] Magnesium measurementOrdered By: Devi Paredes on 06-18-2024 Magnesium measurement 1.8 mg/dL 1.6-2.6 [facility] Potassium measurementOrdered By: Devi Paredes on 06-18-2024 Potassium measurement 4.6 mmol/L 3.5-5.1 [facility] Serum anion gap measurementO rdered By: Devi Paredes on 06-18-2024 Serum anion gap measurement 10 5-15 [facility] Sodium levelOrdered By: Devi Paredes on 06-18-2024 Sodium level 136 mmol/L 136-145 [facility] Urea nitrogen [Mass/Vol]Orde red By: Devi Paredes on 06-18-2024 Serum or plasma urea nitrogen measurement (mass/volume) 16 mg/dL 7-18 [facility] Urine Cultureon 06-18-2024 URC Normal [facility] Comment on above: Performed By: #### M 100.2200 ####[facility] [address] [place], [address] ALP [Catalytic activity/Vol] Ordered By: Jailyn Rosalie on 06-17-2024 Serum or plasma alkaline phosphatase measurement 99 U/L 45-117 [facility] ALT [Catalytic activity/Vol] Ordered By: Jailyn White on 06-17-2024 Serum or plasma alanine aminotransferase (ALT) measurement 16 U/L 13-56 [facility] Absolute neutrophil countOrd ered By: Jailyn White on 06-17-2024 Absolute neutrophil count 5.6 X10^3/uL 2.0-7.7 [facility] Albumin [Mass/Vol]Ordered By : Jailyn White on 06-17-2024 Serum or plasma albumin measurement (mass/volume) 3.1 g/dL Low 3.2-5.0 [facility] Albumin to globulin ratioOrd ered By: Jailyn White on 06-17-2024 Albumin to globulin ratio 0.8 RATIO Low 0.9-2.4 [facility] Basophil percentageOrdered B y: Jailyn White on 06-17-2024 Basophil percentage 0.4 % 0-1 [facility] Bedside Glucoseon 06-17-2024 FINGERSTICK GLU 279 mg/dL High 74-106 [facility] Comment on above: Result Comment: LOURDES GEMENT OF PATIENT CARE PER NURSING PROTOCOL Performed By: #### L 501.080 ####[facility] [address] [place], [address] FINGERSTICK GLU 210 mg/dL High 74-106 [facility] Comment on above: Result Comment: LOURDES GEMENT OF PATIENT CARE PER NURSING PROTOCOL Performed By: #### L 501.080 ####[facility] [address] [place], [address] FINGERSTICK GLU 93 mg/dL Normal 74-106 [facility] Comment on above: Result Comment: LOURDES GEMENT OF PATIENT CARE PER NURSING PROTOCOL Performed By: #### L 501.080 ####[facility] [address] [place], [address] FINGERSTICK GLU 79 mg/dL Normal 74-106 [facility] Comment on above: Result Comment: LOURDES GEMENT OF PATIENT CARE PER NURSING PROTOCOL Performed By: #### L 501.080 ####[facility] [address] [place], [address] FINGERSTICK GLU 125 mg/dL High -106 [facility] Comment on above: Result Comment: LOURDES GEMENT OF PATIENT CARE PER NURSING PROTOCOL Performed By: #### L 501.080 ####[facility] [address] [place], [address] FINGERSTICK GLU 117 mg/dL High 74-106 [facility] Comment on above: Result Comment: LOURDES GEMENT OF PATIENT CARE PER NURSING PROTOCOL Performed By: #### L 501.080 ####[facility] [address] [place], [address] Bilirubin, totalOrdered By: Jailyn Wiggins on 06-17-2024 Bilirubin, total 0.30 mg/dL 0.20-1.00 [facility] CBC W/Diff, Automatedon - MCHC (RBC) [Mass/Vol] 30.0 g/dL Low 32-36 [facility] Comment on above: Performed By: #### L 100.0100, L500.4050 ####[facility] [address] [place], [address] Comprehensive Metabolic Prof ilon 06-17-2024 Albumin [Mass/Vol] 3.1 g/dL Low 3.2-5.0 [facility] Comment on above: Performed By: #### L 100.0100, L500.4050 ####[facility] [address] [place], [address] Albumin/Globulin [Mass ratio] 0.8 {ratio} Low 0.9-2.4 [facility] Comment on above: Performed By: #### L 100.0100, L500.4050 ####[facility] [address] [place], [address] ALK P 99 U/L Normal 45-117 [facility] Comment on above: Performed By: #### L 100.0100, L500.4050 ####[facility] [address] [place], [address] ALT [Catalytic activity/Vol] 16 U/L Normal 13-56 [facility] Comment on above: Performed By: #### L 100.0100, L500.4050 ####[facility] [address] [place], [address] AST [Catalytic activity/Vol] 13 U/L Low 15-37 [facility] Comment on above: Performed By: #### L 100.0100, L500.4050 ####[facility] [address] [place], [address] Bilirubin [Mass/Vol] 0.30 mg/dL Normal 0.20-1.00 [facility] Comment on above: Result Comment: For patients on eltrombopag therapy, use of Dimension Nora TBIL is not recommended. Performed By: #### L 100.0100, L500.4050 ####[facility] [address] [place], [address] BUN/CRE 15.5 RATIO Normal 10-20 [facility] Comment on above: Performed By: #### L 100.0100, L500.4050 ####[facility] [address] [place], [address] CA,Total 8.1 mg/dL Low 8.5-10.1 [facility] Comment on above: Performed By: #### L 100.0100, L500.4050 ####[facility] [address] [place], [address] Chloride [Moles/Vol] 102 mmol/L Normal 98-107 [facility] Comment on above: Performed By: #### L 100.0100, L500.4050 ####[facility] [address] [place], [address] CO2 [Moles/Vol] 23.0 mmol/L Normal 21.0-32.0 [facility] Comment on above: Performed By: #### L 100.0100, L500.4050 ####[facility] [address] [place], [address] Creatinine [Mass/Vol] 1.42 mg/dL High 0.55-1.02 [facility] Comment on above: Result Comment: The validity of the calculated GFR GFRAA in patients over70 years has not been determined. Clinical correlation isessential. Performed By: #### L 100.0100, L500.4050 ####[facility] [address] [place], [address] ECRCL 32.87 ml/min Normal [facility] Comment on above: Performed By: #### L 100.0100, L500.4050 ####[facility] [address] [place], [address] EST GFR - AA 47 mL/min Low >60 [facility] Comment on above: Result Comment: Afri can [place] GFR Calc Performed By: #### L 100.0100, L500.4050 ####[facility] [address] [place], [address] GAP 9 Normal 5-15 [facility] Comment on above: Performed By: #### L 100.0100, L500.4050 ####[facility] [address] [place], [address] GFR/1.73 sq M.predicted among non-blacks MDRD (S/P/Bld) [Vol rate/Area] 39 mL/min/{1.73_m2} Low >60 [facility] Comment on above: Result Comment: Non- GFR Calc Performed By: #### L 100.0100, L500.4050 ####[facility] [address] [place], [address] Globulin (S) [Mass/Vol] 3.8 g/dL Normal 2.2-4.2 [facility] Comment on above: Performed By: #### L 100.0100, L500.4050 ####[facility] [address] [place], [address] Glucose [Mass/Vol] 132 mg/dL High 74-106 [facility] Comment on above: Result Comment: Fast ing Glucose result greater than or equal to 126 mg/dLsuggests DIABETES MELLITUS per A.D.A. criteria. Performed By: #### L 100.0100, L500.4050 ####[facility] [address] [place], [address] Potassium [Moles/Vol] 4.3 mmol/L Normal 3.5-5.1 [facility] Comment on above: Performed By: #### L 100.0100, L500.4050 ####[facility] [address] [place], [address] Sodium [Moles/Vol] 134 mmol/L Low 136-145 [facility] Comment on above: Performed By: #### L 100.0100, L500.4050 ####[facility] [address] [place], [address] T PROT 6.9 g/dL Normal 6.4-8.2 [facility] Comment on above: Performed By: #### L 100.0100, L500.4050 ####[facility] [address] [place], [address] Urea nitrogen [Mass/Vol] 22 mg/dL High 7-18 [facility] Comment on above: Performed By: #### L 100.0100, L500.4050 ####[facility] [address] [place], [address] Eosinophil percentageOrdered By: on 06-17-2024 Eosinophil percentage 3.0 % 0-5 [facility] Erythrocyte distribution wid th (RBC) [Ratio]Ordered By: on 06-17-2024 Erythrocyte distribution width ratio 17.5 % High 11.6-14.6 [facility] Erythrocyte distribution wid th standard deviationOrdered By: on 06-17-2024 Erythrocyte distribution width standard deviation 58.4 fl High 35.1-43.9 [facility] Immature granulocytes/100 WB C Auto (Bld)Ordered By: on 06-17-2024 Automated immature granulocyte percentage 0.500 % 0.0-0.9 [facility] Lymphocytes Auto (Unsp spec) [#/Vol]Ordered By: on 06-17-2024 Absolute lymphocyte count 1.57 X10^3/uL 0.83-4.51 [facility] Lymphocytes/100 WBC Auto (Un sp spec)Ordered By: on 06-17-2024 Automated lymphocyte count as percentage of total leukocytes 19.6 % 19-41 [facility] MCV (RBC) [Entitic vol]Order ed By: White on 06-17-2024 MCV (mean corpuscular volume) determination 92.3 fL 81-99 [facility] Mean corpuscular hemoglobin (MCH) determinationOrdered By: on 06-17-2024 Mean corpuscular hemoglobin (MCH) determination 27.7 pg 27.0-32.0 [facility] Mean corpuscular hemoglobin concentration (MCHC) determinationOrdered By: on 06-17-2024 Mean corpuscular hemoglobin concentration (MCHC) determination 30.0 g/dL Low 32-36 [facility] Mean platelet volume determi nationOrdered By: on 06-17-2024 Mean platelet volume determination 8.8 fl 6.2-12.0 [facility] Monocyte percentageOrdered B y: on 06-17-2024 Monocyte percentage 6.6 % 0-10 [facility] Neutrophil percentageOrdered By: on 06-17-2024 Neutrophil percentage 69.9 % 47-70 [facility] No Panel InformationOrdered By: on 06-17-2024 13 U/L Low 15-37 [facility] Nucleated red blood cell per centageOrdered By: on 06-17-2024 Nucleated red blood cell percentage 0 % 0-5 [facility] Platelet countOrdered By: Debby Wiggins on 06-17-2024 Platelet count 521 K/mm3 High 150-450 [facility] RBC Auto (Bld) [#/Vol]Ordere d By: on 06-17-2024 Automated blood erythrocyte count 3.11 M/mm3 Low 4.2-5.4 [facility] RESPIRATORY PANEL MOLECULARo n 06-17-2024 RP PANEL Normal [facility] Comment on above: Performed By: #### M 100.019, M100.638 ####[facility] [address] [place], [address] Serum globulin measurementOr dered By: Jailyn Rosalie on 06-17-2024 Serum globulin measurement 3.8 g/dL 2.2-4.2 [facility] Total proteinOrdered By: Aut umn White on 06-17-2024 Total protein 6.9 g/dL 6.4-8.2 [facility] White blood cell (WBC) count Ordered By: Jailyn Wiggins on 06-17-2024 White blood cell (WBC) count 8.0 K/mm3 4.4-11.0 [facility] 12 Lead EKGon 06-16-2024 12 Lead EKG Normal [facility] Bacteria LM.HPF (Urine sed) [#/Area]Ordered By: Safia Lares on 06-16-2024 Urine sediment bacteria count by microscopy (number/high power field) 1+ /hpf None Seen [facility] Basic Metabolic Profile (BMP )on 06-16-2024 BUN/CRE 14.4 RATIO Normal 10-20 [facility] Comment on above: Order Comment: 'TROP ' Serial specimen #1, #2 or #3: 1 Performed By: #### L 100.0100, L500.2500, L501.4020 ####[facility] [id number] [place], [address] [place],Total 8.8 mg/dL Normal 8.5-10.1 [facility] Health Comment on above: Order Comment: 'TROP ' Serial specimen #1, #2 or #3: 1 Performed By: #### L 100.0100, L500.2500, L501.4020 ####[facility] [address] [place], [address] Chloride [Moles/Vol] 96 mmol/L Low 98-107 [facility] Comment on above: Order Comment: 'TROP ' Serial specimen #1, #2 or #3: 1 Performed By: #### L 100.0100, L500.2500, L501.4020 ####[facility] [address] [place], [address] CO2 [Moles/Vol] 27.0 mmol/L Normal 21.0-32.0 [facility] Comment on above: Order Comment: 'TROP ' Serial specimen #1, #2 or #3: 1 Performed By: #### L 100.0100, L500.2500, L501.4020 ####[facility] [address] [place], [address] Creatinine [Mass/Vol] 2.15 mg/dL High 0.55-1.02 [facility] Comment on above: Order Comment: 'TROP ' Serial specimen #1, #2 or #3: 1 Result Comment: The validity of the calculated GFR GFRAA in patients over70 years has not been determined. Clinical correlation isessential. Performed By: #### L 100.0100, L500.2500, L501.4020 ####[facility] [address] [place], [address] ECRCL 21.85 ml/min Normal [facility] Comment on above: Order Comment: 'TROP ' Serial specimen #1, #2 or #3: 1 Performed By: #### L 100.0100, L500.2500, L501.4020 ####[facility] [address] [place], [address] EST GFR - AA 29 mL/min Low >60 [facility] Comment on above: Order Comment: 'TROP ' Serial specimen #1, #2 or #3: 1 Result Comment: Afri can [place] GFR Calc Performed By: #### L 100.0100, L500.2500, L501.4020 ####[facility] [address] [place], [address] GAP 9 Normal 5-15 [facility] Comment on above: Order Comment: 'TROP ' Serial specimen #1, #2 or #3: 1 Performed By: #### L 100.0100, L500.2500, L501.4020 ####[facility] [address] [place], [address] GFR/1.73 sq M.predicted among non-blacks MDRD (S/P/Bld) [Vol rate/Area] 24 mL/min/{1.73_m2} Low >60 [facility] Comment on above: Order Comment: 'TROP ' Serial specimen #1, #2 or #3: 1 Result Comment: Non- GFR Calc Performed By: #### L 100.0100, L500.2500, L501.4020 ####[facility] [address] [place], [address] Glucose [Mass/Vol] 103 mg/dL Normal 74-106 [facility] Comment on above: Order Comment: 'TROP ' Serial specimen #1, #2 or #3: 1 Result Comment: Fast ing Glucose result from 100 to 125 mg/dLsuggests IMPAIRED HOMEOSTASIS per A.D.A. criteria. Performed By: #### L 100.0100, L500.2500, L501.4020 ####[facility] [address] [place], [address] Potassium [Moles/Vol] 4.4 mmol/L Normal 3.5-5.1 [facility] Comment on above: Order Comment: 'TROP ' Serial specimen #1, #2 or #3: 1 Performed By: #### L 100.0100, L500.2500, L501.4020 ####[facility] [address] [place], [address] Sodium [Moles/Vol] 132 mmol/L Low 136-145 [facility] Comment on above: Order Comment: 'TROP ' Serial specimen #1, #2 or #3: 1 Performed By: #### L 100.0100, L500.2500, L501.4020 ####[facility] [address] [place], [address] Urea nitrogen [Mass/Vol] 31 mg/dL High 7-18 [facility] Comment on above: Order Comment: 'TROP ' Serial specimen #1, #2 or #3: 1 Performed By: #### L 100.0100, L500.2500, L501.4020 ####[facility] [address] [place], [address] Bedside Glucoseon 06-16-2024 FINGERSTICK GLU 118 mg/dL High 74-106 [facility] Comment on above: Result Comment: LOURDES GORMAN OF PATIENT CARE PER NURSING PROTOCOL Performed By: #### L 501.080 ####[facility] [address] [place], [address] Bilirubin Test strip Ql (U)O rdered By: Safia Lares on 06-16-2024 Urine total bilirubin detection by test strip 1 mg/dL High Negative [facility] CBC W/Diff, Automatedon 05-23 Absolute Lymph 1.85 X10 3/uL Normal 0.83-4.51 [facility] Comment on above: Performed By: #### L 100.0100, L500.2500, L501.4020 ####[facility] [address] [place], [address] Absolute Neut 8.2 X10 3/uL High 2.0-7.7 [facility] Comment on above: Performed By: #### L 100.0100, L500.2500, L501.4020 ####[facility] [address] [place], [address] Basophils/100 WBC (Bld) 0.3 % Normal 0-1 [facility] Comment on above: Performed By: #### L 100.0100, L500.2500, L501.4020 ####[facility] [address] [place], [address] Eosinophils/100 WBC (Bld) 1.9 % Normal 0-5 [facility] Comment on above: Performed By: #### L 100.0100, L500.2500, L501.4020 ####[facility] [address] [place], [address] Erythrocyte distribution width (RBC) [Ratio] 17.9 % High 11.6-14.6 [facility] Comment on above: Performed By: #### L 100.0100, L500.2500, L501.4020 ####[facility] [address] [place], [address] Hematocrit (Bld) [Volume fraction] 28.1 % Low 37-47 [facility] Comment on above: Performed By: #### L 100.0100, L500.2500, L501.4020 ####[facility] [address] [place], [address] Hemoglobin (Bld) [Mass/Vol] 9.1 g/dL Low 12.0-15.0 [facility] Comment on above: Performed By: #### L 100.0100, L500.2500, L501.4020 ####[facility] [address] [place], [address] IG% 0.600 Normal 0.0-0.9 [facility] Comment on above: Result Comment: IG% - Immature Granulocytes (promyelocytes, myelocytes andmetamyelocytes) > 1% indicates that a LEFT SHIFT is Present. Performed By: #### L 100.0100, L500.2500, L501.4020 ####[facility] [address] [place], [address] Lymphocytes/100 WBC (Bld) 16.5 % Low 19-41 [facility] Comment on above: Performed By: #### L 100.0100, L500.2500, L501.4020 ####[facility] [address] [place], [address] MCH (RBC) [Entitic mass] 29.0 pg Normal 27.0-32.0 [facility] Comment on above: Performed By: #### L 100.0100, L500.2500, L501.4020 ####[facility] [address] [place], [address] MCHC (RBC) [Mass/Vol] 32.4 g/dL Normal 32-36 [facility] Comment on above: Performed By: #### L 100.0100, L500.2500, L501.4020 ####[facility] [address] [place], [address] MCV (RBC) [Entitic vol] 89.5 fL Normal 81-99 [facility] Comment on above: Performed By: #### L 100.0100, L500.2500, L501.4020 ####[facility] [address] [place], [address] Monocytes/100 WBC (Bld) 7.2 % Normal 0-10 [facility] Comment on above: Performed By: #### L 100.0100, L500.2500, L501.4020 ####[facility] [address] [place], [address] Neutrophils/100 WBC (Bld) 73.5 % High 47-70 [facility] Comment on above: Performed By: #### L 100.0100, L500.2500, L501.4020 ####[facility] [address] [place], [address] Nucleated RBC (Bld) [#/Vol] 0 10*3/uL Normal 0-5 [facility] Comment on above: Performed By: #### L 100.0100, L500.2500, L501.4020 ####[facility] [address] [place], [address] Platelet mean volume (Bld) [Entitic vol] 8.6 fL Normal 6.2-12.0 [facility] Comment on above: Performed By: #### L 100.0100, L500.2500, L501.4020 ####[facility] [address] [place], [address] Platelets (Bld) [#/Vol] 558 10*3/uL High 150-450 [facility] Comment on above: Performed By: #### L 100.0100, L500.2500, L501.4020 ####[facility] [address] [place], [address] RBC (Bld) [#/Vol] 3.14 10*6/uL Low 4.2-5.4 [facility] Comment on above: Performed By: #### L 100.0100, L500.2500, L501.4020 ####[facility] [address] [place], [address] RDW SD 58.3 fl High 35.1-43.9 [facility] Comment on above: Performed By: #### L 100.0100, L500.2500, L501.4020 ####[facility] [address] [place], [address] WBC (Bld) [#/Vol] 11.2 10*3/uL High 4.4-11.0 [facility] Comment on above: Performed By: #### L 100.0100, L500.2500, L501.4020 ####[facility] [address] [place], [address] Chest PA and Lateralon 06-16 Chest PA and Lateral Normal [facility] Clarity (U)Ordered By: Safia Lares on 06-16-2024 Urine clarity Cloudy Clear [facility] Color (U)Ordered By: Safia frias on 06-16-2024 Urine color determination Yellow Yellow [facility] Creatinine (U) [Mass/Vol]Ord ered By: Jailyn White on 06-16-2024 Urine creatinine measurement (mass/volume) 68.50 mg/dL NO RANGE EST. [facility] Creatinine, Urine (random)on 06-16-2024 UR CREAT 68.50 mg/dL Normal NO RANGE EST. [facility] Comment on above: Performed By: #### L 501.1200, L501.5500 ####[facility] [address] [place], [address] Emergency Department Summary on 06-16-2024 Emergency Department Summary Normal [facility] Epithelial cells.squamous LM Ql (Urine sed)Ordered By: Safia Lares on 06-16-2024 Squamous epithelial cells detection in urine sediment by light microscopy 5-10 SEEN /hpf 5-10 [facility] Fine Granular Casts LM.LPF ( Urine sed) [#/Area]Ordered By: Safia Lares on 06-16-2024 Urine sediment fine granular cast count by microscopy (number/low power field) 5-10 SEEN /lpf 0-5 [facility] H AND P Exam - Hospitaliston 06-16-2024 H&P Exam - Hospitalist Normal [facility] L501.4020on 06-16-2024 TROPONIN-I HS 12 pg/mL Normal 3.0-54.0 [facility] Comment on above: Order Comment: 'TROP ' Serial specimen #1, #2 or #3: 1 Result Comment: Adam richardson Note: New Test Units and Gender Specific Reference Ranges. For more information see Policy Stat Procedure Nora High Sensitivity Troponin (TNIH) and attachments. Performed By: #### L 100.0100, L500.2500, L501.4020 ####[facility] [address] [place], [place], [address] Leukocyte esterase Test stri p Ql (U)Ordered By: Safia Larse on 06-16-2024 Urine leukocyte esterase detection by dipstick 500 /ul High Negative [facility] M100.019on 06-16-2024 M100.019 Negative Normal [facility] Comment on above: Performed By: #### M 100.019, M100.638 ####[facility] [address] [place], [address] Magnesiumon 06-16-2024 Magnesium [Mass/Vol] 1.4 mg/dL Low 1.6-2.6 [facility] Comment on above: Order Comment: Comme nts: May add to ED labsComments: may add to ED labs Performed By: #### L 509.7000, L501.2300, L501.5200 ####[facility] [address] [place], [address] Microscopic analysis of urin e for red blood cells (RBC)Ordered By: Safia Lares on 06-16-2024 Microscopic analysis of urine for red blood cells (RBC) 0-5 SEEN /hpf 0-5 [facility] Mucus LM Ql (Urine sed)Order ed By: Safia Lares on 06-16-2024 Mucus detection in urine sediment by light microscopy 0 SEEN /hpf [facility] Phosphoruson 06-16-2024 Phosphate [Mass/Vol] 4.9 mg/dL Normal 2.5-4.9 [facility] Comment on above: Order Comment: Comme nts: May add to ED labsComments: may add to ED labs Performed By: #### L 509.7000, L501.2300, L501.5200 ####[facility] [address] [place], [place], [id number] Phosphorus measurementOrdere d By: Jailyn Wiggins on 06-16-2024 Phosphorus measurement 4.9 mg/dL 2.5-4.9 [facility] Procalcitoninon 06-16-2024 Procalcitonin 0.24 ng/mL High 0.00-0.09 [facility] Comment on above: Result Comment: A pr [...] Performed By: #### L 509.7000, L501.2300, L501.5200 ####[facility] [address] [place], [address] Procalcitonin [Mass/Vol]Orde red By: Jailyn Wiggins on 06-16-2024 Serum procalcitonin measurement 0.24 ng/mL High 0.00-0.09 [facility] Protein Test strip Ql (U)Ord ered By: Safia Lares on 06-16-2024 Urine protein assay by test strip, semi-quantitative 30 mg/dl High Negative [facility] Sodium urOrdered By: Jailyn Rosalie on 06-16-2024 Sodium ur 48 mmol/L Not Establ. [facility] Specific gravity (U) [Rel de nsity]Ordered By: Safia Lares on 06-16-2024 Urine specific gravity measurement 1.005 1.002-1.03 0 [facility] Troponin IOrdered By: Safia samson on 06-16-2024 Troponin I 12 pg/mL 3.0-54.0 [facility] Urinalysis, Completeon 06-16 BACTERIA 1+ /hpf Normal None Seen [facility] Comment on above: Order Comment: CLEAN CATCH Performed By: #### L 400.0001 ####[facility] [address] [place], [address] CAST,FINE GRAN 5-10 SEEN Normal 0-5 [facility] Comment on above: Order Comment: CLEAN CATCH Performed By: #### L 400.0001 ####[facility] [address] [place], [address] EPI,SQUAMOUS 5-10 SEEN Normal 5-10 [facility] Comment on above: Order Comment: CLEAN CATCH Performed By: #### L 400.0001 ####[facility] [address] [place], [address] RBC 0-5 SEEN Normal 0-5 [facility] Comment on above: Order Comment: CLEAN CATCH Performed By: #### L 400.0001 ####[facility] [address] [place], [place], [id number] WBC 10-25 SEEN Normal 0-5 [facility] Comment on above: Order Comment: CLEAN CATCH Performed By: #### L 400.0001 ####[facility] [address] [place], [address] Mucus Ql (Urine sed) 0 SEEN Normal [facility] Comment on above: Order Comment: CLEAN CATCH Performed By: #### L 400.0001 ####[facility] [address] [place], [place], [id number] Urine Sodiumon 06-16-2024 Sodium (U) [Moles/Vol] 48 mmol/L Normal Not Establ. [facility] Comment on above: Performed By: #### L 501.1200, L501.5500 ####[facility] [address] [place], [place], [address] Urine blood detectionOrdered By: Safia Lares on 06-16-2024 Urine blood detection 10 /ul High Negative [facility] Urine cultureOrdered By: Suzanne Lares on 06-16-2024 Urine culture Staphylococcus epidermidis Abnormal [facility] Urine glucose detectionOrder ed By: Safia Lares on 06-16-2024 Urine glucose detection Normal mg/dl Normal [facility] Urine ketones detection by t est stripOrdered By: Safia Lares on 06-16-2024 Urine ketones detection by test strip Negative Negative [facility] Valproate levelOrdered By: Vanessa Lares on 06-16-2024 Valproate level 21 ug/mL Low 50-100 [facility] Valproic Acid (Depakene) Lev gerardo 06-16-2024 VALPROIC ACID 21 ug/mL Low 50-100 [facility] Comment on above: Performed By: #### L 501.8100 ####[facility] [address] [place], [place], [address] White blood cell countOrdere d By: Safia Lares on 06-16-2024 White blood cell count 10-25 SEEN /hpf 0-5 [facility] pH (U)Ordered By: Safia beverly on 06-16-2024 Urine pH 7.0 5.0 - 8.0 [facility] Absolute neutrophil countOrd ered By: Harry Iniguez on 05-22-2024 Absolute neutrophil count 5.2 X10^3/uL 2.0-7.7 [facility] Basic Metabolic Profile (BMP )on 05-22-2024 BUN/CRE 10.8 RATIO Normal 10-20 [facility] Comment on above: Performed By: #### L 100.0100, L500.2500 ####[facility] [address] [place], [address] CA,Total 7.9 mg/dL Low 8.5-10.1 [facility] Comment on above: Performed By: #### L 100.0100, L500.2500 ####[facility] [address] [place], [address] Chloride [Moles/Vol] 110 mmol/L High 98-107 [facility] Comment on above: Performed By: #### L 100.0100, L500.2500 ####[facility] [address] [place], [address] CO2 [Moles/Vol] 21.0 mmol/L Normal 21.0-32.0 [facility] Comment on above: Performed By: #### L 100.0100, L500.2500 ####[facility] [address] [place], [address] Creatinine [Mass/Vol] 1.02 mg/dL Normal 0.55-1.02 [facility] Comment on above: Result Comment: The validity of the calculated GFR GFRAA in patients over70 years has not been determined. Clinical correlation isessential. Performed By: #### L 100.0100, L500.2500 ####[facility] [address] [place], [address] ECRCL 46.18 ml/min Normal [facility] Comment on above: Performed By: #### L 100.0100, L500.2500 ####[facility] [address] [place], [address] EST GFR - AA 69 mL/min Normal >60 [facility] Comment on above: Result Comment: Afri can [place] GFR Calc Performed By: #### L 100.0100, L500.2500 ####[facility] [address] [place], [address] GAP 7 Normal 5-15 [facility] Comment on above: Performed By: #### L 100.0100, L500.2500 ####[facility] [address] [place], [address] GFR/1.73 sq M.predicted among non-blacks MDRD (S/P/Bld) [Vol rate/Area] 57 mL/min/{1.73_m2} Low >60 [facility] Comment on above: Result Comment: Non- GFR Calc Performed By: #### L 100.0100, L500.2500 ####[facility] [address] [place], [address] Glucose [Mass/Vol] 138 mg/dL High 74-106 [facility] Comment on above: Result Comment: Fast ing Glucose result greater than or equal to 126 mg/dLsuggests DIABETES MELLITUS per A.D.A. criteria. Performed By: #### L 100.0100, L500.2500 ####[facility] [address] [place], [address] Potassium [Moles/Vol] 3.6 mmol/L Normal 3.5-5.1 [facility] Comment on above: Performed By: #### L 100.0100, L500.2500 ####[facility] [address] [place], [address] Sodium [Moles/Vol] 138 mmol/L Normal 136-145 [facility] Comment on above: Performed By: #### L 100.0100, L500.2500 ####[facility] [address] [place], [address] Urea nitrogen [Mass/Vol] 11 mg/dL Normal 7-18 [facility] Comment on above: Performed By: #### L 100.0100, L500.2500 ####[facility] [address] [place], [address] Basophil percentageOrdered B y: Harry Iniguez on 05-22-2024 Basophil percentage 0.5 % 0-1 [facility] Blood urea nitrogen (BUN)/cr eatinine ratioOrdered By: Harry Iniguez on 05-22-2024 Blood urea nitrogen (BUN)/creatinine ratio 10.8 RATIO 10-20 [facility] CBC W/Diff, Automatedon SMEAR COMMENT SCANNED Normal [facility] Comment on above: Performed By: #### L 100.0100, L500.2500 ####[facility] [address] [place], [address] Calcium [Mass/Vol]Ordered By : Harry Iniguez on 05-22-2024 Serum or plasma calcium measurement (mass/volume) 7.9 mg/dL Low 8.5-10.1 [facility] Carbon dioxide measurementOr dered By: Harry Iniguez on 05-22-2024 Carbon dioxide measurement 21.0 mmol/L 21.0-32.0 [facility] Chloride measurementOrdered By: Harry Iniguez on 05-22-2024 Chloride measurement 110 mmol/L High 98-107 [facility] Creatinine [Mass/Vol]Ordered By: Harry Iniguez on 05-22-2024 Serum or plasma creatinine measurement (mass/volume) 1.02 mg/dL 0.55-1.02 [facility] Discharge Instructionon Discharge Instruction Normal [facility] Eosinophil percentageOrdered By: Harry Iniguez on 05-22-2024 Eosinophil percentage 1.5 % 0-5 [facility] Erythrocyte distribution wid th (RBC) [Ratio]Ordered By: Harry Iniguez on 05-22-2024 Erythrocyte distribution width ratio 16.5 % High 11.6-14.6 [facility] Erythrocyte distribution wid th standard deviationOrdered By: Harry Iniguez on 05-22-2024 Erythrocyte distribution width standard deviation 54.5 fl High 35.1-43.9 [facility] Estimated glomerular filtrat ion rate (GFR) AmericanOrdered By: Harry Iniguez on 05-22-2024 Estimated glomerular filtration rate (GFR) 69 mL/min >60 [facility] Estimation of creatinine padma aranceOrdered By: Harry Iniugez on 05-22-2024 Estimation of creatinine clearance 46.18 ml/min [facility] Glomerular filtration rate ( GFR) estimationOrdered By: Harry Iniguez on 05-22-2024 Glomerular filtration rate (GFR) estimation 57 mL/min Low >60 [facility] Glucose measurementOrdered B y: Harry Iniguez on 05-22-2024 Glucose measurement 138 mg/dL High 74-106 [facility] Hematocrit Auto (Bld) [Volum e fraction]Ordered By: Harry Iniguez on 05-22-2024 Automated blood hematocrit (percentage) 23.6 % Low 37-47 [facility] Hemoglobin measurementOrdere d By: Harry Iniguez on 05-22-2024 Hemoglobin measurement 7.6 g/dL Low 12.0-15.0 [facility] Immature granulocytes/100 WB C Auto (Bld)Ordered By: Harry Iniguez on 05-22-2024 Automated immature granulocyte percentage 6.500 % High 0.0-0.9 [facility] Lymphocytes Auto (Unsp spec) [#/Vol]Ordered By: Harry Iniguez on 05-22-2024 Absolute lymphocyte count 2.08 X10^3/uL 0.83-4.51 [facility] Lymphocytes/100 WBC Auto (Un sp spec)Ordered By: Harry Iniguez on 05-22-2024 Automated lymphocyte count as percentage of total leukocytes 24.3 % 19-41 [facility] MCV (RBC) [Entitic vol]Order ed By: Harry Iniguez on 05-22-2024 MCV (mean corpuscular volume) determination 90.8 fL 81-99 [facility] Manual differential comment Dwayne (Bld) [Interp]Ordered By: Harry Iniguez on 05-22-2024 Blood manual differential comment interpretation (narrative result) SCANNED [facility] Mean corpuscular hemoglobin (MCH) determinationOrdered By: Harry Iniguez on 05-22-2024 Mean corpuscular hemoglobin (MCH) determination 29.2 pg 27.0-32.0 [facility] Mean corpuscular hemoglobin concentration (MCHC) determinationOrdered By: Harry Iniguez on 05-22-2024 Mean corpuscular hemoglobin concentration (MCHC) determination 32.2 g/dL 32-36 [facility] Mean platelet volume determi nationOrdered By: Harry Iniguez on 05-22-2024 Mean platelet volume determination 9.3 fl 6.2-12.0 [facility] Monocyte percentageOrdered B y: Harry Iniguez on 05-22-2024 Monocyte percentage 6.8 % 0-10 [facility] Neutrophil percentageOrdered By: Harry Iniguez on 05-22-2024 Neutrophil percentage 60.4 % 47-70 [facility] Nucleated red blood cell per centageOrdered By: Harry Iniguez on 05-22-2024 Nucleated red blood cell percentage 0.4 % 0-5 [facility] Platelet countOrdered By: Shoshana Iniguez on 05-22-2024 Platelet count 441 K/mm3 150-450 [facility] Potassium measurementOrdered By: Harry Iniguez on 05-22-2024 Potassium measurement 3.6 mmol/L 3.5-5.1 [facility] RBC Auto (Bld) [#/Vol]Ordere d By: Harry Iniguez on 05-22-2024 Automated blood erythrocyte count 2.60 M/mm3 Low 4.2-5.4 [facility] Serum anion gap measurementO rdered By: Harry Iniguez on 05-22-2024 Serum anion gap measurement 7 5-15 [facility] Sodium levelOrdered By: Beny Iniguez on 05-22-2024 Sodium level 138 mmol/L 136-145 [facility] Urea nitrogen [Mass/Vol]Orde red By: Harry Iniguez on 05-22-2024 Serum or plasma urea nitrogen measurement (mass/volume) 11 mg/dL 7-18 [facility] White blood cell (WBC) count Ordered By: Harry Iniguez on 05-22-2024 White blood cell (WBC) count 8.6 K/mm3 4.4-11.0 [facility] ALP [Catalytic activity/Vol] Ordered By: Jailyn Wiggins on 05-21-2024 Serum or plasma alkaline phosphatase measurement 98 U/L 45-117 [facility] ALT [Catalytic activity/Vol] Ordered By: Jailyn Wiggins on 05-21-2024 Serum or plasma alanine aminotransferase (ALT) measurement 19 U/L 13-56 [facility] Abdomen Single View (Portabl e)on 05-21-2024 Abdomen Single View (Portable) Normal [facility] Albumin [Mass/Vol]Ordered By : Jailyn Wiggins on 05-21-2024 Serum or plasma albumin measurement (mass/volume) 2.1 g/dL Low 3.2-5.0 [facility] Albumin to globulin ratioOrd ered By: Jailyn Wiggins on 05-21-2024 Albumin to globulin ratio 0.6 RATIO Low 0.9-2.4 [facility] Bilirubin, totalOrdered By: Jailyn Wiggins on 05-21-2024 Bilirubin, total 0.20 mg/dL 0.20-1.00 [facility] CBC W/Diff, Automatedon 04-23 Absolute Lymph 1.40 X10 3/uL Normal 0.83-4.51 [facility] Comment on above: Performed By: #### L 100.0100, L500.4050 ####[facility] [address] [place], [place], [address] Absolute Neut 4.4 X10 3/uL Normal 2.0-7.7 [facility] Comment on above: Performed By: #### L 100.0100, L500.4050 ####[facility] [address] [place], [address] Basophils/100 WBC (Bld) 0.9 % Normal 0-1 [facility] Comment on above: Performed By: #### L 100.0100, L500.4050 ####[facility] [address] [place], [address] Eosinophils/100 WBC (Bld) 2.1 % Normal 0-5 [facility] Comment on above: Performed By: #### L 100.0100, L500.4050 ####[facility] [address] [place], [address] Erythrocyte distribution width (RBC) [Ratio] 16.4 % High 11.6-14.6 [facility] Comment on above: Performed By: #### L 100.0100, L500.4050 ####[facility] [address] [place], [address] Hematocrit (Bld) [Volume fraction] 23.8 % Low 37-47 [facility] Comment on above: Performed By: #### L 100.0100, L500.4050 ####[facility] [address] [place], [address] Hemoglobin (Bld) [Mass/Vol] 7.5 g/dL Low 12.0-15.0 [facility] Comment on above: Performed By: #### L 100.0100, L500.4050 ####[facility] [address] [place], [address] IG% 4.800 High 0.0-0.9 [facility] Comment on above: Result Comment: IG% - Immature Granulocytes (promyelocytes, myelocytes andmetamyelocytes) > 1% indicates that a LEFT SHIFT is Present. Performed By: #### L 100.0100, L500.4050 ####[facility] [address] [place], [address] Lymphocytes/100 WBC (Bld) 20.8 % Normal 19-41 [facility] Comment on above: Performed By: #### L 100.0100, L500.4050 ####[facility] [address] [place] [place], [address] MCH (RBC) [Entitic mass] 29.0 pg Normal 27.0-32.0 [facility] Comment on above: Performed By: #### L 100.0100, L500.4050 ####[facility] [address] [place], [address] MCHC (RBC) [Mass/Vol] 31.5 g/dL Low 32-36 [facility] Comment on above: Performed By: #### L 100.0100, L500.4050 ####[facility] [address] [place], [address] MCV (RBC) [Entitic vol] 91.9 fL Normal 81-99 [facility] Comment on above: Performed By: #### L 100.0100, L500.4050 ####[facility] [address] [place], [address] Monocytes/100 WBC (Bld) 6.1 % Normal 0-10 [facility] Comment on above: Performed By: #### L 100.0100, L500.4050 ####[facility] [address] [place], [address] Neutrophils/100 WBC (Bld) 65.3 % Normal 47-70 [facility] Comment on above: Performed By: #### L 100.0100, L500.4050 ####[facility] [address] [place], [address] Nucleated RBC (Bld) [#/Vol] 0 10*3/uL Normal 0-5 [facility] Comment on above: Performed By: #### L 100.0100, L500.4050 ####[facility] [address] [place], [address] Platelet mean volume (Bld) [Entitic vol] 9.1 fL Normal 6.2-12.0 [facility] Comment on above: Performed By: #### L 100.0100, L500.4050 ####[facility] [address] [place], [address] Platelets (Bld) [#/Vol] 376 10*3/uL Normal 150-450 [facility] Comment on above: Performed By: #### L 100.0100, L500.4050 ####[facility] [address] [place], [address] RBC (Bld) [#/Vol] 2.59 10*6/uL Low 4.2-5.4 [facility] Comment on above: Performed By: #### L 100.0100, L500.4050 ####[facility] [address] [place], [address] RDW SD 55.5 fl High 35.1-43.9 [facility] Comment on above: Performed By: #### L 100.0100, L500.4050 ####[facility] [address] [place], [address] WBC (Bld) [#/Vol] 6.7 10*3/uL Normal 4.4-11.0 [facility] Comment on above: Performed By: #### L 100.0100, L500.4050 ####[facility] [address] [place], [address] Comprehensive Metabolic Prof ilon 05-21-2024 Albumin [Mass/Vol] 2.1 g/dL Low 3.2-5.0 [facility] Comment on above: Performed By: #### L 100.0100, L500.4050 ####[facility] [address] [place], [address] Albumin/Globulin [Mass ratio] 0.6 {ratio} Low 0.9-2.4 [facility] Comment on above: Performed By: #### L 100.0100, L500.4050 ####[facility] [address] [place], [address] ALK P 98 U/L Normal 45-117 [facility] Comment on above: Performed By: #### L 100.0100, L500.4050 ####[facility] [address] [place], [address] ALT [Catalytic activity/Vol] 19 U/L Normal 13-56 [facility] Comment on above: Performed By: #### L 100.0100, L500.4050 ####[facility] [address] [place], [address] AST [Catalytic activity/Vol] 21 U/L Normal 15-37 [facility] Comment on above: Result Comment: Slig ht Hemolysis, Result may be falsely increased. Performed By: #### L 100.0100, L500.4050 ####[facility] [address] [place], [address] Bilirubin [Mass/Vol] 0.20 mg/dL Normal 0.20-1.00 [facility] Comment on above: Result Comment: For patients on eltrombopag therapy, use of Dimension Nora TBIL is not recommended. Performed By: #### L 100.0100, L500.4050 ####[facility] [address] [place], [address] BUN/CRE 17.0 RATIO Normal 10-20 [facility] Comment on above: Performed By: #### L 100.0100, L500.4050 ####[facility] [address] [place], [address] CA,Total 8.1 mg/dL Low 8.5-10.1 [facility] Comment on above: Performed By: #### L 100.0100, L500.4050 ####[facility] [address] [place], [address] Chloride [Moles/Vol] 110 mmol/L High 98-107 [facility] Comment on above: Performed By: #### L 100.0100, L500.4050 ####[facility] [address] [place], [address] CO2 [Moles/Vol] 23.0 mmol/L Normal 21.0-32.0 [facility] Comment on above: Performed By: #### L 100.0100, L500.4050 ####[facility] [address] [place], [address] Creatinine [Mass/Vol] 1.00 mg/dL Normal 0.55-1.02 [facility] Comment on above: Result Comment: The validity of the calculated GFR GFRAA in patients over70 years has not been determined. Clinical correlation isessential. Performed By: #### L 100.0100, L500.4050 ####[facility] [address] [place], [address] ECRCL 47.11 ml/min Normal [facility] Comment on above: Performed By: #### L 100.0100, L500.4050 ####[facility] [address] [place], [address] EST GFR - AA 71 mL/min Normal >60 [facility] Comment on above: Result Comment: Afri can [place] GFR Calc Performed By: #### L 100.0100, L500.4050 ####[facility] [address] [place], [address] GAP 6 Normal 5-15 [facility] Comment on above: Performed By: #### L 100.0100, L500.4050 ####[facility] [address] [place], [address] GFR/1.73 sq M.predicted among non-blacks MDRD (S/P/Bld) [Vol rate/Area] 59 mL/min/{1.73_m2} Low >60 [facility] Comment on above: Result Comment: Non- GFR Calc Performed By: #### L 100.0100, L500.4050 ####[facility] [address] [place], [address] Globulin (S) [Mass/Vol] 3.7 g/dL Normal 2.2-4.2 [facility] Comment on above: Performed By: #### L 100.0100, L500.4050 ####[facility] [address] [place], [address] Glucose [Mass/Vol] 86 mg/dL Normal 74-106 [facility] Comment on above: Performed By: #### L 100.0100, L500.4050 ####[facility] [address] [place], [address] Potassium [Moles/Vol] 3.9 mmol/L Normal 3.5-5.1 [facility] Comment on above: Result Comment: Slig ht Hemolysis, Result may be falsely increased. Performed By: #### L 100.0100, L500.4050 ####[facility] [address] [place], [address] Sodium [Moles/Vol] 139 mmol/L Normal 136-145 [facility] Comment on above: Performed By: #### L 100.0100, L500.4050 ####[facility] [address] [place], [address] T PROT 5.8 g/dL Low 6.4-8.2 [facility] Comment on above: Performed By: #### L 100.0100, L500.4050 ####[facility] [address] [place], [address] Urea nitrogen [Mass/Vol] 17 mg/dL Normal 7-18 [facility] Comment on above: Performed By: #### L 100.0100, L500.4050 ####[facility] [address] [place], [address] Ferritinon 05-21-2024 Ferritin [Mass/Vol] 46 ng/mL Normal 8-252 [facility] Comment on above: Performed By: #### L 503.6030, L503.9750 ####[facility] [address] [place], [address] Ferritin measurementOrdered By: Harry Iniguez on 05-21-2024 Ferritin measurement 46 ng/mL 8- [facility] HH, Hemoglobin AND Hematocri ton 05-21-2024 Hematocrit (Bld) [Volume fraction] 29.2 % Low 37-47 [facility] Comment on above: Performed By: #### L 100.0600 ####[facility] [address] [place], [address] Hemoglobin (Bld) [Mass/Vol] 9.2 g/dL Low 12.0-15.0 [facility] Comment on above: Performed By: #### L 100.0600 ####[facility] [address] [place], [address] Iron (Unsp spec) [Mass/Mass] Ordered By: Harry Iniguez on 05-21-2024 Iron measurement (mass/mass) 25 ug/dL Low 50-170 [facility] Iron saturation [Mass fracti on]Ordered By: Harry Iniguez on 05-21-2024 Serum or plasma iron saturation measurement (mass fraction) 9.6 % Low 15.0-55.0 [facility] Iron+Iron Binding Capacityon 05-21-2024 Iron [Mass/Vol] 25 ug/dL Low 50-170 [facility] Comment on above: Performed By: #### L 503.6030, L503.6550 ####[facility] [address] [place], [place], [address] IRON SATURATION 9.6 Low 15.0-55.0 [facility] Comment on above: Performed By: #### L 503.6030, L503.6550 ####[facility] [address] [place], [address] TIBC 260 ug/dL Normal 250-450 [facility] Comment on above: Performed By: #### L 503.6030, L503.6550 ####[facility] [address] [place], [phone] No Panel InformationOrdered By: Jailyn Wiggins on 05-21-2024 21 U/L 15-37 [facility] Serum globulin measurementOr dered By: Jailyn Wiggins on 05-21-2024 Serum globulin measurement 3.7 g/dL 2.2-4.2 [facility] Stool Occult Blood iFOBon STOB Negative Normal [facility] Comment on above: Performed By: #### M 100.7900 ####[facility] [address] [place], [address] TIBCOrdered By: Harry jones on 05-21-2024 TIBC 260 ug/dL 250-450 [facility] Total proteinOrdered By: Gutierrez Wiggins on 05-21-2024 Total protein 5.8 g/dL Low 6.4-8.2 [facility] 12 Lead EKGon 05-20-2024 12 Lead EKG Normal [facility] Abdomen Single View (Portabl e)on 05-20-2024 Abdomen Single View (Portable) Normal [facility] CBC W/Diff, Automatedon 04-23 Absolute Lymph 1.81 X10 3/uL Normal 0.83-4.51 [facility] Comment on above: Performed By: #### L 100.0100, L500.4050, L501.5200 ####[facility] [address] [place], [address] Absolute Neut 6.5 X10 3/uL Normal 2.0-7.7 [facility] Comment on above: Performed By: #### L 100.0100, L500.4050, L501.5200 ####[facility] [address] [place], [address] Basophils/100 WBC (Bld) 0.7 % Normal 0-1 [facility] Comment on above: Performed By: #### L 100.0100, L500.4050, L501.5200 ####[facility] [address] [place], [address] Eosinophils/100 WBC (Bld) 2.1 % Normal 0-5 [facility] Comment on above: Performed By: #### L 100.0100, L500.4050, L501.5200 ####[facility] [address] [place], [address] Erythrocyte distribution width (RBC) [Ratio] 16.3 % High 11.6-14.6 [facility] Comment on above: Performed By: #### L 100.0100, L500.4050, L501.5200 ####[facility] [address] [place], [address] Hematocrit (Bld) [Volume fraction] 27.0 % Low 37-47 [facility] Comment on above: Performed By: #### L 100.0100, L500.4050, L501.5200 ####[facility] [address] [place], [address] Hemoglobin (Bld) [Mass/Vol] 8.7 g/dL Low 12.0-15.0 [facility] Comment on above: Performed By: #### L 100.0100, L500.4050, L501.5200 ####[facility] [address] [place], [address] IG% 4.200 High 0.0-0.9 [facility] Comment on above: Result Comment: IG% - Immature Granulocytes (promyelocytes, myelocytes andmetamyelocytes) > 1% indicates that a LEFT SHIFT is Present. Performed By: #### L 100.0100, L500.4050, L501.5200 ####[facility] [address] [place], [address] Lymphocytes/100 WBC (Bld) 18.5 % Low 19-41 [facility] Comment on above: Performed By: #### L 100.0100, L500.4050, L501.5200 ####[facility] [address] [place], [address] MCH (RBC) [Entitic mass] 28.7 pg Normal 27.0-32.0 [facility] Comment on above: Performed By: #### L 100.0100, L500.4050, L501.5200 ####[facility] [address] [place], [address] MCHC (RBC) [Mass/Vol] 32.2 g/dL Normal 32-36 [facility] Comment on above: Performed By: #### L 100.0100, L500.4050, L501.5200 ####[facility] [address] [place], [address] MCV (RBC) [Entitic vol] 89.1 fL Normal 81-99 [facility] Comment on above: Performed By: #### L 100.0100, L500.4050, L501.5200 ####[facility] [address] [place], [address] Monocytes/100 WBC (Bld) 7.8 % Normal 0-10 [facility] Comment on above: Performed By: #### L 100.0100, L500.4050, L501.5200 ####[facility] [address] [place], [address] Neutrophils/100 WBC (Bld) 66.7 % Normal 47-70 [facility] Comment on above: Performed By: #### L 100.0100, L500.4050, L501.5200 ####[facility] [address] [place], [address] Nucleated RBC (Bld) [#/Vol] 0 10*3/uL Normal 0-5 [facility] Comment on above: Performed By: #### L 100.0100, L500.4050, L501.5200 ####[facility] [address] [place], [address] Platelet mean volume (Bld) [Entitic vol] 9.2 fL Normal 6.2-12.0 [facility] Comment on above: Performed By: #### L 100.0100, L500.4050, L501.5200 ####[facility] [address] [place], [address] Platelets (Bld) [#/Vol] 503 10*3/uL High 150-450 [facility] Comment on above: Performed By: #### L 100.0100, L500.4050, L501.5200 ####[facility] [address] [place], [address] RBC (Bld) [#/Vol] 3.03 10*6/uL Low 4.2-5.4 [facility] Comment on above: Performed By: #### L 100.0100, L500.4050, L501.5200 ####[facility] [address] [place], [address] RDW SD 53.8 fl High 35.1-43.9 [facility] Comment on above: Performed By: #### L 100.0100, L500.4050, L501.5200 ####[facility] [address] [place], [address] WBC (Bld) [#/Vol] 9.8 10*3/uL Normal 4.4-11.0 [facility] Comment on above: Performed By: #### L 100.0100, L500.4050, L501.5200 ####[facility] [address] [place], [address] [facility] Albumin [Mass/Vol] 2.2 g/dL Low 3.2-5.0 [facility] Comment on above: Performed By: #### L 100.0100, L500.4050, L501.5200 ####[facility] [address] [place], [address] Albumin/Globulin [Mass ratio] 0.6 {ratio} Low 0.9-2.4 [facility] Comment on above: Performed By: #### L 100.0100, L500.4050, L501.5200 ####[facility] [address] [place], [address] ALK P 106 U/L Normal 45-117 [facility] Comment on above: Performed By: #### L 100.0100, L500.4050, L501.5200 ####[facility] [address] [place], [address] ALT [Catalytic activity/Vol] 21 U/L Normal 13-56 [facility] Comment on above: Performed By: #### L 100.0100, L500.4050, L501.5200 ####[facility] [address] [place], [address] AST [Catalytic activity/Vol] 14 U/L Low 15-37 [facility] Comment on above: Performed By: #### L 100.0100, L500.4050, L501.5200 ####[facility] [address] [place], [address] Bilirubin [Mass/Vol] 0.50 mg/dL Normal 0.20-1.00 [facility] Comment on above: Result Comment: For patients on eltrombopag therapy, use of Dimension Nora TBIL is not recommended. Performed By: #### L 100.0100, L500.4050, L501.5200 ####[facility] [address] [place], [address] BUN/CRE 14.1 RATIO Normal 10-20 [facility] Comment on above: Performed By: #### L 100.0100, L500.4050, L501.5200 ####[facility] [address] [place], [address] CA,Total 8.7 mg/dL Normal 8.5-10.1 [facility] Comment on above: Performed By: #### L 100.0100, L500.4050, L501.5200 ####[facility] [address] [place], [address] Chloride [Moles/Vol] 97 mmol/L Low 98-107 [facility] Comment on above: Performed By: #### L 100.0100, L500.4050, L501.5200 ####[facility] [address] [place], [address] CO2 [Moles/Vol] 25.0 mmol/L Normal 21.0-32.0 [facility] Comment on above: Performed By: #### L 100.0100, L500.4050, L501.5200 ####[facility] [address] [place], [address] Creatinine [Mass/Vol] 1.84 mg/dL High 0.55-1.02 [facility] Comment on above: Result Comment: The validity of the calculated GFR GFRAA in patients over70 years has not been determined. Clinical correlation isessential. Performed By: #### L 100.0100, L500.4050, L501.5200 ####[facility] [address] [place], [address] ECRCL 25.71 ml/min Normal [facility] Comment on above: Performed By: #### L 100.0100, L500.4050, L501.5200 ####[facility] [address] [place], [address] EST GFR - AA 35 mL/min Low >60 [facility] Comment on above: Result Comment: Afri can [place] GFR Calc Performed By: #### L 100.0100, L500.4050, L501.5200 ####[facility] [address] [place], [address] GAP 9 Normal 5-15 [facility] Comment on above: Performed By: #### L 100.0100, L500.4050, L501.5200 ####[facility] [address] [place], [address] GFR/1.73 sq M.predicted among non-blacks MDRD (S/P/Bld) [Vol rate/Area] 29 mL/min/{1.73_m2} Low >60 [facility] Comment on above: Result Comment: Non- GFR Calc Performed By: #### L 100.0100, L500.4050, L501.5200 ####[facility] [address] [place], [address] Globulin (S) [Mass/Vol] 4.0 g/dL Normal 2.2-4.2 [facility] Comment on above: Performed By: #### L 100.0100, L500.4050, L501.5200 ####[facility] [address] [place], [address] Glucose [Mass/Vol] 122 mg/dL High 74-106 [facility] Comment on above: Result Comment: Fast ing Glucose result from 100 to 125 mg/dLsuggests IMPAIRED HOMEOSTASIS per A.D.A. criteria. Performed By: #### L 100.0100, L500.4050, L501.5200 ####[facility] [address] [place], [address] Potassium [Moles/Vol] 3.1 mmol/L Low 3.5-5.1 [facility] Comment on above: Performed By: #### L 100.0100, L500.4050, L501.5200 ####[facility] [address] [place], [address] Sodium [Moles/Vol] 131 mmol/L Low 136-145 [facility] Comment on above: Performed By: #### L 100.0100, L500.4050, L501.5200 ####[facility] [address] [place], [address] T PROT 6.2 g/dL Low 6.4-8.2 [facility] Comment on above: Performed By: #### L 100.0100, L500.4050, L501.5200 ####[facility] [address] [place], [address] Urea nitrogen [Mass/Vol] 26 mg/dL High 7-18 [facility] Comment on above: Performed By: #### L 100.0100, L500.4050, L501.5200 ####[facility] [address] [place], [address] Magnesiumon 05-20-2024 Magnesium [Mass/Vol] 1.9 mg/dL Normal 1.6-2.6 [facility] Comment on above: Performed By: #### L 100.0100, L500.4050, L501.5200 ####[facility] [address] [place], [address] Magnesium measurementOrdered By: Jailyn Wiggins on 05-20-2024 Magnesium measurement 1.9 mg/dL 1.6-2.6 [facility] Ova and Parasites 8623on OP Normal [facility] Comment on above: Performed By: #### M 600.5000 ####[facility] [address] [place], [address] Abdomen Single View (Portabl e)on 05-19-2024 Abdomen Single View (Portable) Normal [facility] CBC W/Diff, Automatedon 04-22 Absolute Lymph 1.59 X10 3/uL Normal 0.83-4.51 [facility] Comment on above: Performed By: #### L 100.0100, L500.4050 ####[facility] [address] [place], [address] Absolute Neut 8.0 X10 3/uL High 2.0-7.7 [facility] Comment on above: Performed By: #### L 100.0100, L500.4050 ####[facility] [address] [place], [address] Basophils/100 WBC (Bld) 0.6 % Normal 0-1 [facility] Comment on above: Performed By: #### L 100.0100, L500.4050 ####[facility] [address] [place], [address] Eosinophils/100 WBC (Bld) 1.4 % Normal 0-5 [facility] Comment on above: Performed By: #### L 100.0100, L500.4050 ####[facility] [address] [place], [address] Erythrocyte distribution width (RBC) [Ratio] 16.4 % High 11.6-14.6 [facility] Comment on above: Performed By: #### L 100.0100, L500.4050 ####[facility] [address] [place], [address] Hematocrit (Bld) [Volume fraction] 32.0 % Low 37-47 [facility] Comment on above: Performed By: #### L 100.0100, L500.4050 ####[facility] [address] [place], [address] Hemoglobin (Bld) [Mass/Vol] 10.3 g/dL Low 12.0-15.0 [facility] Comment on above: Performed By: #### L 100.0100, L500.4050 ####[facility] [address] [place], [address] IG% 2.000 High 0.0-0.9 [facility] Comment on above: Result Comment: IG% - Immature Granulocytes (promyelocytes, myelocytes andmetamyelocytes) > 1% indicates that a LEFT SHIFT is Present. Performed By: #### L 100.0100, L500.4050 ####[facility] [address] [place], [address] Lymphocytes/100 WBC (Bld) 14.5 % Low 19-41 [facility] Comment on above: Performed By: #### L 100.0100, L500.4050 ####[facility] [address] [place], [address] MCH (RBC) [Entitic mass] 28.9 pg Normal 27.0-32.0 [facility] Comment on above: Performed By: #### L 100.0100, L500.4050 ####[facility] [address] [place], [address] MCHC (RBC) [Mass/Vol] 32.2 g/dL Normal 32-36 [facility] Comment on above: Performed By: #### L 100.0100, L500.4050 ####[facility] [address] [place], [address] MCV (RBC) [Entitic vol] 89.9 fL Normal 81-99 [facility] Comment on above: Performed By: #### L 100.0100, L500.4050 ####[facility] [address] [place], [address] Monocytes/100 WBC (Bld) 8.9 % Normal 0-10 [facility] Comment on above: Performed By: #### L 100.0100, L500.4050 ####[facility] [address] [place], [address] Neutrophils/100 WBC (Bld) 72.6 % High 47-70 [facility] Comment on above: Performed By: #### L 100.0100, L500.4050 ####[facility] [address] [place], [address] Nucleated RBC (Bld) [#/Vol] 0.2 10*3/uL Normal 0-5 [facility] Comment on above: Performed By: #### L 100.0100, L500.4050 ####[facility] [address] [place], [address] Platelet mean volume (Bld) [Entitic vol] 9.0 fL Normal 6.2-12.0 [facility] Comment on above: Performed By: #### L 100.0100, L500.4050 ####[facility] [address] [place], [address] Platelets (Bld) [#/Vol] 543 10*3/uL High 150-450 [facility] Comment on above: Performed By: #### L 100.0100, L500.4050 ####[facility] [address] [place], [address] RBC (Bld) [#/Vol] 3.56 10*6/uL Low 4.2-5.4 [facility] Comment on above: Performed By: #### L 100.0100, L500.4050 ####[facility] [address] [place], [address] RDW SD 54.1 fl High 35.1-43.9 [facility] Comment on above: Performed By: #### L 100.0100, L500.4050 ####[facility] [address] [place], [address] WBC (Bld) [#/Vol] 11.0 10*3/uL Normal 4.4-11.0 [facility] Comment on above: Performed By: #### L 100.0100, L500.4050 ####[facility] [address] [place], [address] Comprehensive Metabolic Prof ilon 05-19-2024 Albumin [Mass/Vol] 2.4 g/dL Low 3.2-5.0 [facility] Comment on above: Performed By: #### L 100.0100, L500.4050 ####[facility] [address] [place], [address] Albumin/Globulin [Mass ratio] 0.5 {ratio} Low 0.9-2.4 [facility] Comment on above: Performed By: #### L 100.0100, L500.4050 ####[facility] [address] [place], [address] ALK P 125 U/L High 45-117 [facility] Comment on above: Performed By: #### L 100.0100, L500.4050 ####[facility] [address] [place], [address] ALT [Catalytic activity/Vol] 23 U/L Normal 13-56 [facility] Comment on above: Performed By: #### L 100.0100, L500.4050 ####[facility] [address] [place], [address] AST [Catalytic activity/Vol] 21 U/L Normal 15-37 [facility] Comment on above: Performed By: #### L 100.0100, L500.4050 ####[facility] [address] [place], [address] Bilirubin [Mass/Vol] 0.70 mg/dL Normal 0.20-1.00 [facility] Comment on above: Result Comment: For patients on eltrombopag therapy, use of Dimension Nora TBIL is not recommended. Performed By: #### L 100.0100, L500.4050 ####[facility] [address] [place], [address] BUN/CRE 19.3 RATIO Normal 10-20 [facility] Comment on above: Performed By: #### L 100.0100, L500.4050 ####[facility] [address] [place], [address] CA,Total 9.3 mg/dL Normal 8.5-10.1 [facility] Comment on above: Performed By: #### L 100.0100, L500.4050 ####[facility] [address] [place], [address] Chloride [Moles/Vol] 95 mmol/L Low 98-107 [facility] Comment on above: Performed By: #### L 100.0100, L500.4050 ####[facility] [address] [place], [address] CO2 [Moles/Vol] 24.0 mmol/L Normal 21.0-32.0 [facility] Comment on above: Performed By: #### L 100.0100, L500.4050 ####[facility] [address] [place], [address] Creatinine [Mass/Vol] 1.09 mg/dL High 0.55-1.02 [facility] Comment on above: Result Comment: The validity of the calculated GFR GFRAA in patients over70 years has not been determined. Clinical correlation isessential. Performed By: #### L 100.0100, L500.4050 ####[facility] [address] [place], [address] ECRCL 43.00 ml/min Normal [facility] Comment on above: Performed By: #### L 100.0100, L500.4050 ####[facility] [address] [place], [address] EST GFR - AA 64 mL/min Normal >60 [facility] Comment on above: Result Comment: Afri can [place] GFR Calc Performed By: #### L 100.0100, L500.4050 ####[facility] [address] [place], [address] GAP 11 Normal 5-15 [facility] Comment on above: Performed By: #### L 100.0100, L500.4050 ####[facility] [address] [place], [address] GFR/1.73 sq M.predicted among non-blacks MDRD (S/P/Bld) [Vol rate/Area] 53 mL/min/{1.73_m2} Low >60 [facility] Comment on above: Result Comment: Non- GFR Calc Performed By: #### L 100.0100, L500.4050 ####[facility] [address] [place], [address] Globulin (S) [Mass/Vol] 4.6 g/dL High 2.2-4.2 [facility] Comment on above: Performed By: #### L 100.0100, L500.4050 ####[facility] [address] [place], [address] Glucose [Mass/Vol] 236 mg/dL High 74-106 [facility] Comment on above: Result Comment: Gluc ose result greater than or equal to 200 mg/dLsuggests DIABETES MELLITUS per A.D.A. criteria. Performed By: #### L 100.0100, L500.4050 ####[facility] [address] [place], [address] Potassium [Moles/Vol] 3.2 mmol/L Low 3.5-5.1 [facility] Comment on above: Performed By: #### L 100.0100, L500.4050 ####[facility] [address] [place], [address] Sodium [Moles/Vol] 130 mmol/L Low 136-145 [facility] Comment on above: Performed By: #### L 100.0100, L500.4050 ####[facility] [address] [place], [address] T PROT 7.0 g/dL Normal 6.4-8.2 [facility] Comment on above: Performed By: #### L 100.0100, L500.4050 ####[facility] [address] [place], [address] Urea nitrogen [Mass/Vol] 21 mg/dL High 7-18 [facility] Comment on above: Performed By: #### L 100.0100, L500.4050 ####[facility] [address] [place], [address] L501.4020on 05-19-2024 TROPONIN-I HS 29 pg/mL Normal 3.0-54.0 [facility] Comment on above: Order Comment: Comme nts: SPECIMEN #3'TROP' Serial specimen #1, #2 or #3: 3 Result Comment: Plea se Note: New Test Units and Gender Specific Reference Ranges. For more information see Policy Stat Procedure Nora High Sensitivity Troponin (TNIH) and attachments. Performed By: #### L 501.4020 ####[facility] [address] [place], [address] Magnesiumon 05-19-2024 Magnesium [Mass/Vol] 1.3 mg/dL Low 1.6-2.6 [facility] Comment on above: Order Comment: Comme nts: add onto to am labs Performed By: #### L 501.5200 ####[facility] [address] [place], [address] Troponin IOrdered By: Bassem Vann on 05-19-2024 Troponin I 29 pg/mL 3.0-54.0 [facility] 12 Lead EKGon 05-18-2024 12 Lead EKG Normal [facility] Abdomen Single View (Portabl e)on 05-18-2024 Abdomen Single View (Portable) Normal [facility] CBC W/Diff, Automatedon 04-22 Absolute Lymph 1.25 X10 3/uL Normal 0.83-4.51 [facility] Comment on above: Performed By: #### L 100.0100, L500.4050 ####[facility] [address] [place], [address] Absolute Neut 8.5 X10 3/uL High 2.0-7.7 [facility] Comment on above: Performed By: #### L 100.0100, L500.4050 ####[facility] [address] [place], [address] Basophils/100 WBC (Bld) 0.5 % Normal 0-1 [facility] Comment on above: Performed By: #### L 100.0100, L500.4050 ####[facility] [address] [place], [address] Eosinophils/100 WBC (Bld) 0.7 % Normal 0-5 [facility] Comment on above: Performed By: #### L 100.0100, L500.4050 ####[facility] [address] [place], [address] Erythrocyte distribution width (RBC) [Ratio] 16.8 % High 11.6-14.6 [facility] Comment on above: Performed By: #### L 100.0100, L500.4050 ####[facility] [address] [place], [address] Hematocrit (Bld) [Volume fraction] 31.3 % Low 37-47 [facility] Comment on above: Performed By: #### L 100.0100, L500.4050 ####[facility] [address] [place], [address] Hemoglobin (Bld) [Mass/Vol] 9.8 g/dL Low 12.0-15.0 [facility] Comment on above: Performed By: #### L 100.0100, L500.4050 ####[facility] [address] [place], [address] IG% 1.200 High 0.0-0.9 [facility] Comment on above: Result Comment: IG% - Immature Granulocytes (promyelocytes, myelocytes andmetamyelocytes) > 1% indicates that a LEFT SHIFT is Present. Performed By: #### L 100.0100, L500.4050 ####[facility] [address] [place], [address] Lymphocytes/100 WBC (Bld) 11.3 % Low 19-41 [facility] Comment on above: Performed By: #### L 100.0100, L500.4050 ####[facility] [address] [place], [address] MCH (RBC) [Entitic mass] 28.9 pg Normal 27.0-32.0 [facility] Comment on above: Performed By: #### L 100.0100, L500.4050 ####[facility] [address] [place], [address] MCHC (RBC) [Mass/Vol] 31.3 g/dL Low 32-36 [facility] Comment on above: Performed By: #### L 100.0100, L500.4050 ####[facility] [address] [place], [address] MCV (RBC) [Entitic vol] 92.3 fL Normal 81-99 [facility] Comment on above: Performed By: #### L 100.0100, L500.4050 ####[facility] [address] [place], [address] Monocytes/100 WBC (Bld) 9.7 % Normal 0-10 [facility] Comment on above: Performed By: #### L 100.0100, L500.4050 ####[facility] [address] [place], [address] Neutrophils/100 WBC (Bld) 76.6 % High 47-70 [facility] Comment on above: Performed By: #### L 100.0100, L500.4050 ####[facility] [address] [place], [address] Nucleated RBC (Bld) [#/Vol] 0 10*3/uL Normal 0-5 [facility] Comment on above: Performed By: #### L 100.0100, L500.4050 ####[facility] [address] [place], [address] Platelet mean volume (Bld) [Entitic vol] 9.1 fL Normal 6.2-12.0 [facility] Comment on above: Performed By: #### L 100.0100, L500.4050 ####[facility] [address] [place], [address] Platelets (Bld) [#/Vol] 534 10*3/uL High 150-450 [facility] Comment on above: Performed By: #### L 100.0100, L500.4050 ####[facility] [address] [place], [address] RBC (Bld) [#/Vol] 3.39 10*6/uL Low 4.2-5.4 [facility] Comment on above: Performed By: #### L 100.0100, L500.4050 ####[facility] [address] [place], [address] RDW SD 56.8 fl High 35.1-43.9 [facility] Comment on above: Performed By: #### L 100.0100, L500.4050 ####[facility] [address] [place], [address] WBC (Bld) [#/Vol] 11.1 10*3/uL High 4.4-11.0 [facility] Comment on above: Performed By: #### L 100.0100, L500.4050 ####[facility] [address] [place], [address] Comprehensive Metabolic Prof [facility] 05-18-2024 Albumin [Mass/Vol] 2.7 g/dL Low 3.2-5.0 [facility] Comment on above: Performed By: #### L 100.0100, L500.4050 ####[facility] [address] [place], [address] Albumin/Globulin [Mass ratio] 0.6 {ratio} Low 0.9-2.4 [facility] Comment on above: Performed By: #### L 100.0100, L500.4050 ####[facility] [address] [place], [address] ALK P 140 U/L High 45-117 [facility] Comment on above: Performed By: #### L 100.0100, L500.4050 ####[facility] [address] [place], [address] ALT [Catalytic activity/Vol] 23 U/L Normal 13-56 [facility] Comment on above: Performed By: #### L 100.0100, L500.4050 ####[facility] [address] [place], [address] AST [Catalytic activity/Vol] 15 U/L Normal 15-37 [facility] Comment on above: Performed By: #### L 100.0100, L500.4050 ####[facility] [address] [place], [address] Bilirubin [Mass/Vol] 0.40 mg/dL Normal 0.20-1.00 [facility] Comment on above: Result Comment: For patients on eltrombopag therapy, use of Dimension Nora TBIL is not recommended. Performed By: #### L 100.0100, L500.4050 ####[facility] [address] [place], [address] BUN/CRE 21.8 RATIO High 10-20 [facility] Comment on above: Performed By: #### L 100.0100, L500.4050 ####[facility] [address] [place], [address] CA,Total 9.1 mg/dL Normal 8.5-10.1 [facility] Comment on above: Performed By: #### L 100.0100, L500.4050 ####[facility] [address] [place], [address] Chloride [Moles/Vol] 100 mmol/L Normal 98-107 [facility] Comment on above: Performed By: #### L 100.0100, L500.4050 ####[facility] [address] [place], [address] CO2 [Moles/Vol] 27.0 mmol/L Normal 21.0-32.0 [facility] Comment on above: Performed By: #### L 100.0100, L500.4050 ####[facility] [address] [place], [address] Creatinine [Mass/Vol] 0.87 mg/dL Normal 0.55-1.02 [facility] Comment on above: Result Comment: The validity of the calculated GFR GFRAA in patients over70 years has not been determined. Clinical correlation isessential. Performed By: #### L 100.0100, L500.4050 ####[facility] [address] [place], [address] ECRCL 52.44 ml/min Normal [facility] Comment on above: Performed By: #### L 100.0100, L500.4050 ####[facility] [address] [place], [address] EST GFR - AA 83 mL/min Normal >60 [facility] Comment on above: Result Comment: Afri can [place] GFR Calc Performed By: #### L 100.0100, L500.4050 ####[facility] [address] [place], [address] GAP 7 Normal 5-15 [facility] Comment on above: Performed By: #### L 100.0100, L500.4050 ####[facility] [address] [place], [address] GFR/1.73 sq M.predicted among non-blacks MDRD (S/P/Bld) [Vol rate/Area] 69 mL/min/{1.73_m2} Normal >60 [facility] Comment on above: Result Comment: Non- GFR Calc Performed By: #### L 100.0100, L500.4050 ####[facility] [address] [place], [address] Globulin (S) [Mass/Vol] 4.7 g/dL High 2.2-4.2 [facility] Comment on above: Performed By: #### L 100.0100, L500.4050 ####[facility] [address] [place], [address] Glucose [Mass/Vol] 133 mg/dL High 74-106 [facility] Comment on above: Result Comment: Fast ing Glucose result greater than or equal to 126 mg/dLsuggests DIABETES MELLITUS per A.D.A. criteria. Performed By: #### L 100.0100, L500.4050 ####[facility] [address] [place], [address] Potassium [Moles/Vol] 3.5 mmol/L Normal 3.5-5.1 [facility] Comment on above: Performed By: #### L 100.0100, L500.4050 ####[facility] [address] [place], [address] Sodium [Moles/Vol] 135 mmol/L Low 136-145 [facility] Comment on above: Performed By: #### L 100.0100, L500.4050 ####[facility] [address] [place], [address] T PROT 7.4 g/dL Normal 6.4-8.2 [facility] Comment on above: Performed By: #### L 100.0100, L500.4050 ####[facility] [address] [place], [address] Urea nitrogen [Mass/Vol] 19 mg/dL High 7-18 [facility] Comment on above: Performed By: #### L 100.0100, L500.4050 ####[facility] [address] [place], [address] L501.4020on 05-18-2024 TROPONIN-I HS 20 pg/mL Normal 3.0-54.0 [facility] Comment on above: Order Comment: Comme nts: SPECIMEN #2'TROP' Serial specimen #1, #2 or #3: 2 Result Comment: Plea se Note: New Test Units and Gender Specific Reference Ranges. For more information see Policy Stat Procedure Nora High Sensitivity Troponin (TNIH) and attachments. Performed By: #### L 501.4020 ####[facility] [address] [place], [address] TROPONIN-I HS 23 pg/mL Normal 3.0-54.0 [facility] Comment on above: Order Comment: 'TROP ' Serial specimen #1, #2 or #3: 1 Result Comment: Plea se Note: New Test Units and Gender Specific Reference Ranges. For more information see Policy Stat Procedure Nora High Sensitivity Troponin (TNIH) and attachments. Performed By: #### L 501.4020 ####[facility] [address] [place], [address] CBC W/Diff, Automatedon 04-22 Absolute Lymph 1.00 X10 3/uL Normal 0.83-4.51 [facility] Comment on above: Order Comment: REDRA W. PREVIOUS SPECIMEN REJECTED DUE TOQNS. 05/17/24 0935 Sandy Flaco. Performed By: #### L 100.0100 ####[facility] [address] [place], [address] Absolute Neut 7.3 X10 3/uL Normal 2.0-7.7 [facility] Comment on above: Order Comment: REDRA W. PREVIOUS SPECIMEN REJECTED DUE TOQNS. 05/17/24 0935 Sandy Sam. Performed By: #### L 100.0100 ####[facility] [address] [place], [address] Basophils/100 WBC (Bld) 0.4 % Normal 0-1 [facility] Comment on above: Order Comment: REDRA W. PREVIOUS SPECIMEN REJECTED DUE TOQNS. 05/17/24 0935 Sandy Flaco. Performed By: #### L 100.0100 ####[facility] [address] [place], [address] Eosinophils/100 WBC (Bld) 0.9 % Normal 0-5 [facility] Comment on above: Order Comment: REDRA W. PREVIOUS SPECIMEN REJECTED DUE TOQNS. 05/17/24 0935 Sandy Sam. Performed By: #### L 100.0100 ####[facility] [address] [place], [address] Erythrocyte distribution width (RBC) [Ratio] 16.9 % High 11.6-14.6 [facility] Comment on above: Order Comment: REDRA W. PREVIOUS SPECIMEN REJECTED DUE TOQNS. 05/17/24 0935 Sandy Sam. Performed By: #### L 100.0100 ####[facility] [address] [place], [address] Hematocrit (Bld) [Volume fraction] 29.9 % Low 37-47 [facility] Comment on above: Order Comment: REDRA W. PREVIOUS SPECIMEN REJECTED DUE TOQNS. 05/17/24 0935 Sandy Sam. Performed By: #### L 100.0100 ####[facility] [address] [place], [address] Hemoglobin (Bld) [Mass/Vol] 9.6 g/dL Low 12.0-15.0 [facility] Comment on above: Order Comment: REDRA W. PREVIOUS SPECIMEN REJECTED DUE TOQNS. 05/17/24 0935 Sandytrell Sam. Performed By: #### L 100.0100 ####[facility] [address] [place], [address] IG% 1.300 High 0.0-0.9 [facility] Comment on above: Order Comment: REDRA W. PREVIOUS SPECIMEN REJECTED DUE TOQNS. 05/17/24 0935 Sandy Sam. Result Comment: IG% - Immature Granulocytes (promyelocytes, myelocytes andmetamyelocytes) > 1% indicates that a LEFT SHIFT is Present. Performed By: #### L 100.0100 ####[facility] [address] [place], [address] Lymphocytes/100 WBC (Bld) 10.5 % Low 19-41 [facility] Comment on above: Order Comment: REDRA W. PREVIOUS SPECIMEN REJECTED DUE TOQNS. 05/17/24 0935 Sandy Sam. Performed By: #### L 100.0100 ####[facility] [address] [place], [address] MCH (RBC) [Entitic mass] 29.3 pg Normal 27.0-32.0 [facility] Comment on above: Order Comment: REDRA W. PREVIOUS SPECIMEN REJECTED DUE TOQNS. 05/17/24 0935 Sandy Sam. Performed By: #### L 100.0100 ####[facility] [address] [place], [address] MCHC (RBC) [Mass/Vol] 32.1 g/dL Normal 32-36 [facility] Comment on above: Order Comment: REDRA W. PREVIOUS SPECIMEN REJECTED DUE TOQNS. 05/17/24 0935 Sandy Sam. Performed By: #### L 100.0100 ####[facility] [address] [place], [address] MCV (RBC) [Entitic vol] 91.2 fL Normal 81-99 [facility] Comment on above: Order Comment: REDRA W. PREVIOUS SPECIMEN REJECTED DUE TOQNS. 05/17/24 0935 Sandy Sam. Performed By: #### L 100.0100 ####[facility] [address] [place], [address] Monocytes/100 WBC (Bld) 10.7 % High 0-10 [facility] Comment on above: Order Comment: REDRA W. PREVIOUS SPECIMEN REJECTED DUE TOQNS. 05/17/24 0935 Sandy Sam. Performed By: #### L 100.0100 ####[facility] [address] [place], [address] Neutrophils/100 WBC (Bld) 76.2 % High 47-70 [facility] Comment on above: Order Comment: REDRA W. PREVIOUS SPECIMEN REJECTED DUE TOQNS. 05/17/24 0935 Sandy Sam. Performed By: #### L 100.0100 ####[facility] [address] [place], [address] Nucleated RBC (Bld) [#/Vol] 0.2 10*3/uL Normal 0-5 [facility] Comment on above: Order Comment: REDRA W. PREVIOUS SPECIMEN REJECTED DUE TOQNS. 05/17/24 0935 Sandy Sam. Performed By: #### L 100.0100 ####[facility] [address] [place], [address] Platelet mean volume (Bld) [Entitic vol] 9.1 fL Normal 6.2-12.0 [facility] Comment on above: Order Comment: REDRA W. PREVIOUS SPECIMEN REJECTED DUE TOQNS. 05/17/24 0935 Sandy Sam. Performed By: #### L 100.0100 ####[facility] [address] [place], [address] Platelets (Bld) [#/Vol] 526 10*3/uL High 150-450 [facility] Comment on above: Order Comment: REDRA W. PREVIOUS SPECIMEN REJECTED DUE TOQNS. 05/17/24 0935 Sandy Sam. Performed By: #### L 100.0100 ####[facility] [address] [place], [address] RBC (Bld) [#/Vol] 3.28 10*6/uL Low 4.2-5.4 [facility] Comment on above: Order Comment: REDRA W. PREVIOUS SPECIMEN REJECTED DUE TOQNS. 05/17/24 0935 Sandy Sam. Performed By: #### L 100.0100 ####[facility] [address] [place], [address] RDW SD 56.6 fl High 35.1-43.9 [facility] Comment on above: Order Comment: REDRA W. PREVIOUS SPECIMEN REJECTED DUE TOQNS. 05/17/2435 Sandy Sam. Performed By: #### L 100.0100 ####[facility] [address] [place], [address] WBC (Bld) [#/Vol] 9.5 10*3/uL Normal 4.4-11.0 [facility] Comment on above: Order Comment: REDRA W. PREVIOUS SPECIMEN REJECTED DUE TOQNS. 05/17/2435 Sandy Sam. Performed By: #### L 100.0100 ####[facility] [address] [place], [address] Absolute Neut Normal 2.0-7.7 [facility] Comment on above: Result Comment: This specimen has been REJECTED due to Laboratory criteria:Quanity Not Sufficient.RHESS has been notified of need of recollection.05/17/2434 Sandy Sam Performed By: #### L 100.0100, L500.4050 ####[facility] [address] [place], [address] HCT Normal 37-47 [facility] Comment on above: Result Comment: This specimen has been REJECTED due to Laboratory criteria:Quanity Not Sufficient.RHESS has been notified of need of recollection.05/17/24933 Sandy Sam Performed By: #### L 100.0100, L500.4050 ####[facility] [address] [place], [address] HGB Normal 12.0-15.0 [facility] Comment on above: Result Comment: This specimen has been REJECTED due to Laboratory criteria:Quanity Not Sufficient.RHESS has been notified of need of recollection.05/17/24933 Sandy Sam Performed By: #### L 100.0100, L500.4050 ####[facility] [address] [place], [address] MCH Normal 27.0-32.0 [facility] Comment on above: Result Comment: This specimen has been REJECTED due to Laboratory criteria:Quanity Not Sufficient.RHESS has been notified of need of recollection.05/17/24933 Sandy Sam Performed By: #### L 100.0100, L500.4050 ####[facility] [address] [place], [address] MCHC Normal 32-36 [facility] Comment on above: Result Comment: This specimen has been REJECTED due to Laboratory criteria:Quanity Not Sufficient.RHESS has been notified of need of recollection.05/17/24933 Sandy Sam Performed By: #### L 100.0100, L500.4050 ####[facility] [address] [place], [address] MCV Normal 81-99 [facility] Comment on above: Result Comment: This specimen has been REJECTED due to Laboratory criteria:Quanity Not Sufficient.RHESS has been notified of need of recollection.05/17/24933 Sandy Sam Performed By: #### L 100.0100, L500.4050 ####[facility] [address] [place], [address] NEUT% Normal 47-70 [facility] Comment on above: Result Comment: This specimen has been REJECTED due to Laboratory criteria:Quanity Not Sufficient.RHESS has been notified of need of recollection.05/17/24933 Sandy Sam Performed By: #### L 100.0100, L500.4050 ####[facility] [address] [place], [address] PLT Normal 150-450 [facility] Comment on above: Result Comment: This specimen has been REJECTED due to Laboratory criteria:Quanity Not Sufficient.RHESS has been notified of need of recollection.05/17/24933 Sandy Sam Performed By: #### L 100.0100, L500.4050 ####[facility] [address] [place], [address] RBC Normal 4.2-5.4 [facility] Comment on above: Result Comment: This specimen has been REJECTED due to Laboratory criteria:Quanity Not Sufficient.RHESS has been notified of need of recollection.05/17/24933 Sandy Sam Performed By: #### L 100.0100, L500.4050 ####[facility] [address] [place], [address] RDW CV Normal 11.6-14.6 [facility] Comment on above: Result Comment: This specimen has been REJECTED due to Laboratory criteria:Quanity Not Sufficient.RHESS has been notified of need of recollection.05/17/24933 Sandy Sam Performed By: #### L 100.0100, L500.4050 ####[facility] [address] [place], [address] RDW SD Normal 35.1-43.9 [facility] Comment on above: Result Comment: This specimen has been REJECTED due to Laboratory criteria:Quanity Not Sufficient.RHESS has been notified of need of recollection.05/17/24933 Sandy Sam Performed By: #### L 100.0100, L500.4050 ####[facility] [address] [place], [address] WBC Normal 4.4-11.0 [facility] Comment on above: Result Comment: This specimen has been REJECTED due to Laboratory criteria:Quanity Not Sufficient.RHESS has been notified of need of recollection.05/17/24933 Sandy Sam Performed By: #### L 100.0100, L500.4050 ####[facility] [address] [place], [address] Comprehensive Metabolic Prof ilon 05-17-2024 Albumin [Mass/Vol] 3.0 g/dL Low 3.2-5.0 [facility] Comment on above: Performed By: #### L 100.0100, L500.4050 ####[facility] [address] [place], [address] Albumin/Globulin [Mass ratio] 0.6 {ratio} Low 0.9-2.4 [facility] Comment on above: Performed By: #### L 100.0100, L500.4050 ####[facility] [address] [place], [address] ALK P 144 U/L High 45-117 [facility] Comment on above: Performed By: #### L 100.0100, L500.4050 ####[facility] [address] [place], [address] ALT [Catalytic activity/Vol] 27 U/L Normal 13-56 [facility] Comment on above: Performed By: #### L 100.0100, L500.4050 ####[facility] [address] [place], [address] AST [Catalytic activity/Vol] 20 U/L Normal 15-37 [facility] Comment on above: Performed By: #### L 100.0100, L500.4050 ####[facility] [address] [place], [address] Bilirubin [Mass/Vol] 0.50 mg/dL Normal 0.20-1.00 [facility] Comment on above: Result Comment: For patients on eltrombopag therapy, use of Dimension Nora TBIL is not recommended. Performed By: #### L 100.0100, L500.4050 ####[facility] [address] [place], [address] BUN/CRE 24.6 RATIO High 10-20 [facility] Comment on above: Performed By: #### L 100.0100, L500.4050 ####[facility] [address] [place], [address] CA,Total 8.9 mg/dL Normal 8.5-10.1 [facility] Comment on above: Performed By: #### L 100.0100, L500.4050 ####[facility] [address] [place], [address] Chloride [Moles/Vol] 102 mmol/L Normal 98-107 [facility] Comment on above: Performed By: #### L 100.0100, L500.4050 ####[facility] [address] [place], [address] CO2 [Moles/Vol] 26.0 mmol/L Normal 21.0-32.0 [facility] Comment on above: Performed By: #### L 100.0100, L500.4050 ####[facility] [address] [place], [address] Creatinine [Mass/Vol] 0.97 mg/dL Normal 0.55-1.02 [facility] Comment on above: Result Comment: The validity of the calculated GFR GFRAA in patients over70 years has not been determined. Clinical correlation isessential. Performed By: #### L 100.0100, L500.4050 ####[facility] [address] [place], [address] ECRCL 47.92 ml/min Normal [facility] Comment on above: Performed By: #### L 100.0100, L500.4050 ####[facility] [address] [place], [address] EST GFR - AA 73 mL/min Normal >60 [facility] Comment on above: Result Comment: Afri can [place] GFR Calc Performed By: #### L 100.0100, L500.4050 ####[facility] [address] [place], [address] GAP 8 Normal 5-15 [facility] Comment on above: Performed By: #### L 100.0100, L500.4050 ####[facility] [address] [place], [address] GFR/1.73 sq M.predicted among non-blacks MDRD (S/P/Bld) [Vol rate/Area] 60 mL/min/{1.73_m2} Normal >60 [facility] Comment on above: Result Comment: Non- GFR Calc Performed By: #### L 100.0100, L500.4050 ####[facility] [address] [place], [address] Globulin (S) [Mass/Vol] 5.2 g/dL High 2.2-4.2 [facility] Comment on above: Performed By: #### L 100.0100, L500.4050 ####[facility] [address] [place], [address] Glucose [Mass/Vol] 135 mg/dL High 74-106 [facility] Comment on above: Result Comment: Fast ing Glucose result greater than or equal to 126 mg/dLsuggests DIABETES MELLITUS per A.D.A. criteria. Performed By: #### L 100.0100, L500.4050 ####[facility] [id number] [place], [address] Potassium [Moles/Vol] 4.1 mmol/L Normal 3.5-5.1 [facility] Comment on above: Performed By: #### L 100.0100, L500.4050 ####[facility] [address] [place], [address] Sodium [Moles/Vol] 136 mmol/L Normal 136-145 [facility] Comment on above: Performed By: #### L 100.0100, L500.4050 ####[facility] [address] [place], [address] T PROT 8.2 g/dL Normal 6.4-8.2 [facility] Comment on above: Performed By: #### L 100.0100, L500.4050 ####[facility] [address] [place], [address] Urea nitrogen [Mass/Vol] 24 mg/dL High 7-18 [facility] Comment on above: Performed By: #### L 100.0100, L500.4050 ####[facility] [address] [place], [address] ENTERIC PATHOGEN PANEL STOOL on 05-17-2024 EP PANEL CAMPYLOBACTER Not Detected Norovirus Not Detected Rotavirus Not Detected Salmonella Not Detected Shiga Toxin Not Detected Shigella sp. Not Detected VIBRIO Not Detected Yersinia Not Detected Normal [facility] Comment on above: Performed By: #### M 100.637 ####[facility] [address] [place], [address] Stool Lactoferrin/WBCon 04-22 WBCST Normal Reference Ran ge = Negative Fecal WBC Lactoferrin A Positive: Fecal WBC Lactoferrin present A Normal [facility] Comment on above: Performed By: #### M 100.0605 ####[facility] [address] [place], [address] Abdomen Single View (Portabl e)on 05-16-2024 Abdomen Single View (Portable) Normal [facility] CBC W/Diff, Automatedon - Absolute Lymph 0.87 X10 3/uL Normal 0.83-4.51 [facility] Comment on above: Performed By: #### L 100.0100, L500.4050 ####[facility] [address] [place], [address] Absolute Neut 4.0 X10 3/uL Normal 2.0-7.7 [facility] Comment on above: Performed By: #### L 100.0100, L500.4050 ####[facility] [address] [place], [address] Basophils/100 WBC (Bld) 0.9 % Normal 0-1 [facility] Comment on above: Performed By: #### L 100.0100, L500.4050 ####[facility] [address] [place], [address] Eosinophils/100 WBC (Bld) 2.1 % Normal 0-5 [facility] Comment on above: Performed By: #### L 100.0100, L500.4050 ####[facility] [address] [place], [address] Erythrocyte distribution width (RBC) [Ratio] 16.9 % High 11.6-14.6 [facility] Comment on above: Performed By: #### L 100.0100, L500.4050 ####[facility] [address] [place], [address] Hematocrit (Bld) [Volume fraction] 30.3 % Low 37-47 [facility] Comment on above: Performed By: #### L 100.0100, L500.4050 ####[facility] [address] [place], [address] Hemoglobin (Bld) [Mass/Vol] 9.4 g/dL Low 12.0-15.0 [facility] Comment on above: Performed By: #### L 100.0100, L500.4050 ####[facility] [address] [place], [address] IG% 0.500 Normal 0.0-0.9 [facility] Comment on above: Result Comment: IG% - Immature Granulocytes (promyelocytes, myelocytes andmetamyelocytes) > 1% indicates that a LEFT SHIFT is Present. Performed By: #### L 100.0100, L500.4050 ####[facility] [address] [place], [address] Lymphocytes/100 WBC (Bld) 15.0 % Low 19-41 [facility] Comment on above: Performed By: #### L 100.0100, L500.4050 ####[facility] [address] [place], [address] MCH (RBC) [Entitic mass] 28.3 pg Normal 27.0-32.0 [facility] Comment on above: Performed By: #### L 100.0100, L500.4050 ####[facility] [address] [place], [address] MCHC (RBC) [Mass/Vol] 31.0 g/dL Low 32-36 [facility] Comment on above: Performed By: #### L 100.0100, L500.4050 ####[facility] [address] [place], [address] MCV (RBC) [Entitic vol] 91.3 fL Normal 81-99 [facility] Comment on above: Performed By: #### L 100.0100, L500.4050 ####[facility] [address] [place], [address] Monocytes/100 WBC (Bld) 12.1 % High 0-10 [facility] Comment on above: Performed By: #### L 100.0100, L500.4050 ####[facility] [address] [place], [address] Neutrophils/100 WBC (Bld) 69.4 % Normal 47-70 [facility] Comment on above: Performed By: #### L 100.0100, L500.4050 ####[facility] [address] [place], [address] Nucleated RBC (Bld) [#/Vol] 0 10*3/uL Normal 0-5 [facility] Comment on above: Performed By: #### L 100.0100, L500.4050 ####[facility] [address] [place], [address] Platelet mean volume (Bld) [Entitic vol] 9.3 fL Normal 6.2-12.0 [facility] Comment on above: Performed By: #### L 100.0100, L500.4050 ####[facility] [address] [place], [address] Platelets (Bld) [#/Vol] 475 10*3/uL High 150-450 [facility] Comment on above: Performed By: #### L 100.0100, L500.4050 ####[facility] [address] [place], [address] RBC (Bld) [#/Vol] 3.32 10*6/uL Low 4.2-5.4 [facility] Comment on above: Performed By: #### L 100.0100, L500.4050 ####[facility] [address] [place], [address] RDW SD 56.6 fl High 35.1-43.9 [facility] Comment on above: Performed By: #### L 100.0100, L500.4050 ####[facility] [address] [place], [address] WBC (Bld) [#/Vol] 5.8 10*3/uL Normal 4.4-11.0 [facility] Comment on above: Performed By: #### L 100.0100, L500.4050 ####[facility] [address] [place], [address] Comprehensive Metabolic Prof [facility] 05-16-2024 Albumin [Mass/Vol] 2.9 g/dL Low 3.2-5.0 [facility] Comment on above: Performed By: #### L 100.0100, L500.4050 ####[facility] [address] [place], [address] Albumin/Globulin [Mass ratio] 0.7 {ratio} Low 0.9-2.4 [facility] Comment on above: Performed By: #### L 100.0100, L500.4050 ####[facility] [address] [place], [address] ALK P 119 U/L High 45-117 [facility] Comment on above: Performed By: #### L 100.0100, L500.4050 ####[facility] [address] [place], [address] ALT [Catalytic activity/Vol] 25 U/L Normal 13-56 [facility] Comment on above: Performed By: #### L 100.0100, L500.4050 ####[facility] [address] [place], [address] AST [Catalytic activity/Vol] 18 U/L Normal 15-37 [facility] Comment on above: Performed By: #### L 100.0100, L500.4050 ####[facility] [address] [place], [address] Bilirubin [Mass/Vol] 0.50 mg/dL Normal 0.20-1.00 [facility] Comment on above: Result Comment: For patients on eltrombopag therapy, use of Dimension Nora TBIL is not recommended. Performed By: #### L 100.0100, L500.4050 ####[facility] [address] [place], [address] BUN/CRE 31.0 RATIO High 10-20 [facility] Comment on above: Performed By: #### L 100.0100, L500.4050 ####[facility] [address] [place], [address] CA,Total 7.6 mg/dL Low 8.5-10.1 [facility] Comment on above: Performed By: #### L 100.0100, L500.4050 ####[facility] [address] [place], [address] Chloride [Moles/Vol] 104 mmol/L Normal 98-107 [facility] Comment on above: Performed By: #### L 100.0100, L500.4050 ####[facility] [address] [place], [address] CO2 [Moles/Vol] 24.0 mmol/L Normal 21.0-32.0 [facility] Comment on above: Performed By: #### L 100.0100, L500.4050 ####[facility] [address] [place], [address] Creatinine [Mass/Vol] 1.13 mg/dL High 0.55-1.02 [facility] Comment on above: Result Comment: The validity of the calculated GFR GFRAA in patients over70 years has not been determined. Clinical correlation isessential. Performed By: #### L 100.0100, L500.4050 ####[facility] [address] [place], [address] ECRCL 41.47 ml/min Normal [facility] Comment on above: Performed By: #### L 100.0100, L500.4050 ####[facility] [address] [place], [address] EST GFR - AA 62 mL/min Normal >60 [facility] Comment on above: Result Comment: Afri can Tu[place]uan GFR Calc Performed By: #### L 100.0100, L500.4050 ####[facility] [address] [place], [address] GAP 6 Normal 5-15 [facility] Comment on above: Performed By: #### L 100.0100, L500.4050 ####[facility] [address] [place], [address] GFR/1.73 sq M.predicted among non-blacks MDRD (S/P/Bld) [Vol rate/Area] 51 mL/min/{1.73_m2} Low >60 [facility] Comment on above: Result Comment: Non- GFR Calc Performed By: #### L 100.0100, L500.4050 ####[facility] [address] [place], [address] Globulin (S) [Mass/Vol] 4.3 g/dL High 2.2-4.2 [facility] Comment on above: Performed By: #### L 100.0100, L500.4050 ####[facility] [address] [place], [address] Glucose [Mass/Vol] 134 mg/dL High 74-106 [facility] Comment on above: Result Comment: Fast ing Glucose result greater than or equal to 126 mg/dLsuggests DIABETES MELLITUS per A.D.A. criteria. Performed By: #### L 100.0100, L500.4050 ####[facility] [address] [place], [address] Potassium [Moles/Vol] 3.8 mmol/L Normal 3.5-5.1 [facility] Comment on above: Performed By: #### L 100.0100, L500.4050 ####[facility] [address] [place], [address] Sodium [Moles/Vol] 134 mmol/L Low 136-145 [facility] Comment on above: Performed By: #### L 100.0100, L500.4050 ####[facility] [address] [place], [address] T PROT 7.2 g/dL Normal 6.4-8.2 [facility] Comment on above: Performed By: #### L 100.0100, L500.4050 ####[facility] [address] [place], [address] Urea nitrogen [Mass/Vol] 35 mg/dL High 7-18 [facility] Comment on above: Performed By: #### L 100.0100, L500.4050 ####[facility] [address] [place], [address] Small Bowel Series Onlyon Small Bowel Series Only Normal [facility] Abdomen Single View (Portabl e)on 05-15-2024 Abdomen Single View (Portable) Normal [facility] Abdomen Single View (Portable) Normal [facility] CBC W/Diff, Automatedon 04-22 SMEAR COMMENT SCANNED Normal [facility] Comment on above: Result Comment: LEFT SHIFT: BANDS PRESENT 3+ Performed By: #### L 100.0100 ####[facility] [address] [place], [address] Comprehensive Metabolic Prof ilon 05-15-2024 Albumin [Mass/Vol] 2.9 g/dL Low 3.2-5.0 [facility] Comment on above: Performed By: #### L 500.4050, L501.2300, L501.5200 ####[facility] [address] [place], [address] Albumin/Globulin [Mass ratio] 0.7 {ratio} Low 0.9-2.4 [facility] Comment on above: Performed By: #### L 500.4050, L501.2300, L501.5200 ####[facility] [address] [place], [address] ALK P 117 U/L Normal 45-117 [facility] Comment on above: Performed By: #### L 500.4050, L501.2300, L501.5200 ####[facility] [address] [place], [address] ALT [Catalytic activity/Vol] 22 U/L Normal 13-56 [facility] Comment on above: Performed By: #### L 500.4050, L501.2300, L501.5200 ####[facility] [address] [place], [address] AST [Catalytic activity/Vol] 16 U/L Normal 15-37 [facility] Comment on above: Performed By: #### L 500.4050, L501.2300, L501.5200 ####[facility] [address] [place], [address] Bilirubin [Mass/Vol] 0.70 mg/dL Normal 0.20-1.00 [facility] Comment on above: Result Comment: For patients on eltrombopag therapy, use of Dimension Nora TBIL is not recommended. Performed By: #### L 500.4050, L501.2300, L501.5200 ####[facility] [address] [place], [address] BUN/CRE 27.5 RATIO High 10-20 [facility] Comment on above: Performed By: #### L 500.4050, L501.2300, L501.5200 ####[facility] [address] [place], [address] CA,Total 7.0 mg/dL Low 8.5-10.1 [facility] Comment on above: Performed By: #### L 500.4050, L501.2300, L501.5200 ####[facility] [address] [place], [address] Chloride [Moles/Vol] 99 mmol/L Normal 98-107 [facility] Comment on above: Performed By: #### L 500.4050, L501.2300, L501.5200 ####[facility] [address] [place], [address] CO2 [Moles/Vol] 24.0 mmol/L Normal 21.0-32.0 [facility] Comment on above: Performed By: #### L 500.4050, L501.2300, L501.5200 ####[facility] [address] [place], [address] Creatinine [Mass/Vol] 1.93 mg/dL High 0.55-1.02 [facility] Comment on above: Result Comment: The validity of the calculated GFR GFRAA in patients over70 years has not been determined. Clinical correlation isessential. Performed By: #### L 500.4050, L501.2300, L501.5200 ####[facility] [address] [place], [address] ECRCL 24.35 ml/min Normal [facility] Comment on above: Performed By: #### L 500.4050, L501.2300, L501.5200 ####[facility] [address] [place], [address] EST GFR - AA 33 mL/min Low >60 [facility] Comment on above: Result Comment: Afri can [place] GFR Calc Performed By: #### L 500.4050, L501.2300, L501.5200 ####[facility] [address] [place], [address] GAP 9 Normal 5-15 [facility] Comment on above: Performed By: #### L 500.4050, L501.2300, L501.5200 ####[facility] [address] [place], [address] GFR/1.73 sq M.predicted among non-blacks MDRD (S/P/Bld) [Vol rate/Area] 28 mL/min/{1.73_m2} Low >60 [facility] Comment on above: Result Comment: Non- GFR Calc Performed By: #### L 500.4050, L501.2300, L501.5200 ####[facility] [address] [place], [address] Globulin (S) [Mass/Vol] 4.3 g/dL High 2.2-4.2 [facility] Comment on above: Performed By: #### L 500.4050, L501.2300, L501.5200 ####[facility] [address] [place], [address] Glucose [Mass/Vol] 168 mg/dL High 74-106 [facility] Comment on above: Result Comment: Fast ing Glucose result greater than or equal to 126 mg/dLsuggests DIABETES MELLITUS per A.D.A. criteria. Performed By: #### L 500.4050, L501.2300, L501.5200 ####[facility] [address] [place], [address] Potassium [Moles/Vol] 3.6 mmol/L Normal 3.5-5.1 [facility] Comment on above: Performed By: #### L 500.4050, L501.2300, L501.5200 ####[facility] [address] [place], [address] Sodium [Moles/Vol] 132 mmol/L Low 136-145 [facility] Comment on above: Performed By: #### L 500.4050, L501.2300, L501.5200 ####[facility] [address] [place], [address] T PROT 7.2 g/dL Normal 6.4-8.2 [facility] Comment on above: Performed By: #### L 500.4050, L501.2300, L501.5200 ####[facility] [address] [place], [address] Urea nitrogen [Mass/Vol] 53 mg/dL High 7-18 [facility] Comment on above: Performed By: #### L 500.4050, L501.2300, L501.5200 ####[facility] [address] [place], [address] Creatinine, Urine (random)on 05-15-2024 UR CREAT 170.00 mg/dL Normal NO RANGE EST. [facility] Comment on above: Performed By: #### L 501.1200 ####[facility] [address] [place], [address] Magnesiumon 05-15-2024 Magnesium [Mass/Vol] 2.2 mg/dL Normal 1.6-2.6 [facility] Comment on above: Performed By: #### L 500.4050, L501.2300, L501.5200 ####[facility] [address] [place], [address] Phosphoruson 05-15-2024 Phosphate [Mass/Vol] 3.1 mg/dL Normal 2.5-4.9 [facility] Comment on above: Performed By: #### L 500.4050, L501.2300, L501.5200 ####[facility] [address] [place], [address] Phosphorus measurementOrdere d By: Bassem Vann on 05-15-2024 Phosphorus measurement 3.1 mg/dL 2.5-4.9 [facility] 12 Lead EKGon 05-14-2024 12 Lead EKG Normal [facility] Abdomen Single View (Portabl e)on 05-14-2024 Abdomen Single View (Portable) Normal [facility] Basic Metabolic Profile (BMP )on 05-14-2024 BUN/CRE 26.6 RATIO High 10-20 [facility] Comment on above: Performed By: #### L 500.2500 ####[facility] [address] [place], [address] CA,Total 7.1 mg/dL Low 8.5-10.1 [facility] Comment on above: Performed By: #### L 500.2500 ####[facility] [address] [place], [address] Chloride [Moles/Vol] 100 mmol/L Normal 98-107 [facility] Comment on above: Performed By: #### L 500.2500 ####[facility] [address] [place], [address] CO2 [Moles/Vol] 24.0 mmol/L Normal 21.0-32.0 [facility] Comment on above: Performed By: #### L 500.2500 ####[facility] [address] [place], [address] Creatinine [Mass/Vol] 1.92 mg/dL High 0.55-1.02 [facility] Comment on above: Result Comment: The validity of the calculated GFR GFRAA in patients over70 years has not been determined. Clinical correlation isessential. Performed By: #### L 500.2500 ####[facility] [address] [place], [address] ECRCL 24.64 ml/min Normal [facility] Comment on above: Performed By: #### L 500.2500 ####[facility] [address] [place], [address] EST GFR - AA 33 mL/min Low >60 [facility] Comment on above: Result Comment: Afri can [place] GFR Calc Performed By: #### L 500.2500 ####[facility] [address] [place], [address] GAP 9 Normal 5-15 [facility] Comment on above: Performed By: #### L 500.2500 ####[facility] [address] [place], [address] GFR/1.73 sq M.predicted among non-blacks MDRD (S/P/Bld) [Vol rate/Area] 28 mL/min/{1.73_m2} Low >60 [facility] Comment on above: Result Comment: Non- GFR Calc Performed By: #### L 500.2500 ####[facility] [address] [place], [address] Glucose [Mass/Vol] 190 mg/dL High 74-106 [facility] Comment on above: Result Comment: Fast ing Glucose result greater than or equal to 126 mg/dLsuggests DIABETES MELLITUS per A.D.A. criteria. Performed By: #### L 500.2500 ####[facility] [address] [place], [address] Potassium [Moles/Vol] 4.1 mmol/L Normal 3.5-5.1 [facility] Comment on above: Performed By: #### L 500.2500 ####[facility] [address] [place], [address] Sodium [Moles/Vol] 132 mmol/L Low 136-145 [facility] Comment on above: Performed By: #### L 500.2500 ####[facility] [address] [place], [address] Urea nitrogen [Mass/Vol] 51 mg/dL High 7-18 [facility] Comment on above: Performed By: #### L 500.2500 ####[facility] [address] [place], [address] BUN/CRE 23.0 RATIO High 10-20 [facility] Comment on above: Performed By: #### L 500.2500 ####[facility] [address] [place], [address] CA,Total 8.0 mg/dL Low 8.5-10.1 [facility] Comment on above: Performed By: #### L 500.2500 ####[facility] [address] [place], [address] Chloride [Moles/Vol] 95 mmol/L Low 98-107 [facility] Comment on above: Performed By: #### L 500.2500 ####[facility] [address] [place], [address] CO2 [Moles/Vol] 24.0 mmol/L Normal 21.0-32.0 [facility] Comment on above: Performed By: #### L 500.2500 ####[facility] [address] [place], [address] Creatinine [Mass/Vol] 2.09 mg/dL High 0.55-1.02 [facility] Comment on above: Result Comment: The validity of the calculated GFR GFRAA in patients over70 years has not been determined. Clinical correlation isessential. Performed By: #### L 500.2500 ####[facility] [address] [place], [address] ECRCL 22.67 ml/min Normal [facility] Comment on above: Performed By: #### L 500.2500 ####[facility] [address] [place], [address] EST GFR - AA 30 mL/min Low >60 [facility] Comment on above: Result Comment: Afri can [place] GFR Calc Performed By: #### L 500.2500 ####[facility] [address] [place], [address] GAP 11 Normal 5-15 [facility] Comment on above: Performed By: #### L 500.2500 ####[facility] [address] [place], [address] GFR/1.73 sq M.predicted among non-blacks MDRD (S/P/Bld) [Vol rate/Area] 25 mL/min/{1.73_m2} Low >60 [facility] Comment on above: Result Comment: Non- GFR Calc Performed By: #### L 500.2500 ####[facility] [address] [place], [address] Glucose [Mass/Vol] 287 mg/dL High 74-106 [facility] Comment on above: Result Comment: Gluc ose result greater than or equal to 200 mg/dLsuggests DIABETES MELLITUS per A.D.A. criteria. Performed By: #### L 500.2500 ####[facility] [address] [place], [address] Potassium [Moles/Vol] 4.8 mmol/L Normal 3.5-5.1 [facility] Comment on above: Performed By: #### L 500.2500 ####[facility] [address] [place], [address] Sodium [Moles/Vol] 130 mmol/L Low 136-145 [facility] Comment on above: Performed By: #### L 500.2500 ####[facility] [address] [place], [address] Urea nitrogen [Mass/Vol] 48 mg/dL High 7-18 [facility] Comment on above: Performed By: #### L 500.2500 ####[facility] [address] [place], [address] Bedside Glucoseon 05-14-2024 FINGERSTICK GLU 277 mg/dL High 74-106 [facility] Comment on above: Result Comment: LOURDES GORMAN OF PATIENT CARE PER NURSING PROTOCOL Performed By: #### L 501.080 ####[facility] [address] [place], [address] CBC W/Diff, Automatedon - SMEAR COMMENT SCANNED Normal [facility] Comment on above: Performed By: #### L 100.0100, L500.4050, L501.2300, L501.5200, L501.9520, L501.9985 ####[facility] [address] [place], [address] Calcium ionizedOrdered By: Emelina Wiggins on 05-14-2024 Calcium ionized 1.00 mmol/L Low 1.09-1.30 [facility] Comprehensive Metabolic Prof ilon 05-14-2024 Albumin [Mass/Vol] 3.2 g/dL Normal 3.2-5.0 [facility] Comment on above: Performed By: #### L 100.0100, L500.4050, L501.2300, L501.5200, L501.9520, L501.9985 ####[facility] [address] [place], [address] Albumin/Globulin [Mass ratio] 0.7 {ratio} Low 0.9-2.4 [facility] Comment on above: Performed By: #### L 100.0100, L500.4050, L501.2300, L501.5200, L501.9520, L501.9985 ####[facility] [address] [place], [address] ALK P 122 U/L High 45-117 [facility] Comment on above: Performed By: #### L 100.0100, L500.4050, L501.2300, L501.5200, L501.9520, L501.9985 ####[facility] [address] [place], [address] ALT [Catalytic activity/Vol] 26 U/L Normal 13-56 [facility] Comment on above: Performed By: #### L 100.0100, L500.4050, L501.2300, L501.5200, L501.9520, L501.9985 ####[facility] [address] [place], [address] AST [Catalytic activity/Vol] 15 U/L Normal 15-37 [facility] Comment on above: Performed By: #### L 100.0100, L500.4050, L501.2300, L501.5200, L501.9520, L501.9985 ####[facility] [address] [place], [address] Bilirubin [Mass/Vol] 0.80 mg/dL Normal 0.20-1.00 [facility] Comment on above: Result Comment: For patients on eltrombopag therapy, use of Dimension Nora TBIL is not recommended. Performed By: #### L 100.0100, L500.4050, L501.2300, L501.5200, L501.9520, L501.9985 ####[facility] [address] [place], [address] BUN/CRE 23.9 RATIO High 10-20 [facility] Comment on above: Performed By: #### L 100.0100, L500.4050, L501.2300, L501.5200, L501.9520, L501.9985 ####[facility] [address] [place], [address] CA,Total 7.5 mg/dL Low 8.5-10.1 [facility] Comment on above: Performed By: #### L 100.0100, L500.4050, L501.2300, L501.5200, L501.9520, L501.9985 ####[facility] [address] [place], [address] Chloride [Moles/Vol] 98 mmol/L Normal 98-107 [facility] Comment on above: Performed By: #### L 100.0100, L500.4050, L501.2300, L501.5200, L501.9520, L501.9985 ####[facility] [address] [place], [address] CO2 [Moles/Vol] 22.0 mmol/L Normal 21.0-32.0 [facility] Comment on above: Performed By: #### L 100.0100, L500.4050, L501.2300, L501.5200, L501.9520, L501.9985 ####[facility] [address] [place], [address] Creatinine [Mass/Vol] 2.05 mg/dL High 0.55-1.02 [facility] Comment on above: Result Comment: The validity of the calculated GFR GFRAA in patients over70 years has not been determined. Clinical correlation isessential. Performed By: #### L 100.0100, L500.4050, L501.2300, L501.5200, L501.9520, L501.9985 ####[facility] [address] [place], [address] ECRCL 23.08 ml/min Normal [facility] Comment on above: Performed By: #### L 100.0100, L500.4050, L501.2300, L501.5200, L501.9520, L501.9985 ####[facility] [address] [place], [address] EST GFR - AA 31 mL/min Low >60 [facility] Comment on above: Result Comment: Afri can [place] GFR Calc Performed By: #### L 100.0100, L500.4050, L501.2300, L501.5200, L501.9520, L501.9985 ####[facility] [address] [place], [address] GAP 9 Normal 5-15 [facility] Comment on above: Performed By: #### L 100.0100, L500.4050, L501.2300, L501.5200, L501.9520, L501.9985 ####[facility] [address] [place], [place], [id number]) GFR/1.73 sq M.predicted among non-blacks MDRD (S/P/Bld) [Vol rate/Area] 26 mL/min/{1.73_m2} Low >60 [facility] Comment on above: Result Comment: Non- GFR Calc Performed By: #### L 100.0100, L500.4050, L501.2300, L501.5200, L501.9520, L501.9985 ####[facility] [address] [place], [address] Globulin (S) [Mass/Vol] 4.3 g/dL High 2.2-4.2 [facility] Comment on above: Performed By: #### L 100.0100, L500.4050, L501.2300, L501.5200, L501.9520, L501.9985 ####[facility] [address] [place], [address] Glucose [Mass/Vol] 210 mg/dL High 74-106 [facility] Comment on above: Result Comment: Gluc ose result greater than or equal to 200 mg/dLsuggests DIABETES MELLITUS per A.D.A. criteria. Performed By: #### L 100.0100, L500.4050, L501.2300, L501.5200, L501.9520, L501.9985 ####[facility] [address] [place], [address] Potassium [Moles/Vol] 4.2 mmol/L Normal 3.5-5.1 [facility] Comment on above: Performed By: #### L 100.0100, L500.4050, L501.2300, L501.5200, L501.9520, L501.9985 ####[facility] [address] [place], [address] Sodium [Moles/Vol] 129 mmol/L Low 136-145 [facility] Comment on above: Performed By: #### L 100.0100, L500.4050, L501.2300, L501.5200, L501.9520, L501.9985 ####[facility] [address] [place], [address] T PROT 7.5 g/dL Normal 6.4-8.2 [facility] Comment on above: Performed By: #### L 100.0100, L500.4050, L501.2300, L501.5200, L501.9520, L501.9985 ####[facility] [address] [place], [address] Urea nitrogen [Mass/Vol] 49 mg/dL High 7-18 [facility] Comment on above: Performed By: #### L 100.0100, L500.4050, L501.2300, L501.5200, L501.9520, L501.9985 ####[facility] [address] [place], [address] Consultation - Surgicalon Consultation - Surgical Normal [facility] Creatinine (U) [Mass/Vol]Ord ered By: Jailyn Wiggins on 05-14-2024 Urine creatinine measurement (mass/volume) 170.00 mg/dL NO RANGE EST. [facility] HbA1c (Bld) [Mass fraction]O rdered By: Bassem Vann on 05-14-2024 Hemoglobin A1c percentage 8.8 % High 3.8-5.6 [facility] Hemoglobin A1con 05-14-2024 HbA1c (Bld) [Mass fraction] 8.8 % High 3.8-5.6 [facility] Comment on above: Result Comment: Norm al < 5.7 % Prediabetic 5.7 - 6.4 % Diabetic >or= 6.5 % Please note range changes. Performed By: #### L 100.0100, L500.4050, L501.2300, L501.5200, L501.9520, L501.9985 ####[facility] [address] [place], [address] L501.2276on 05-14-2024 Ionized Calcium 1.00 mmol/L Low 1.09-1.30 [facility] Comment on above: Performed By: #### L 501.6506 ####[facility] [address] [place], [address] Magnesiumon 05-14-2024 Magnesium [Mass/Vol] 1.3 mg/dL Low 1.6-2.6 [facility] Comment on above: Performed By: #### L 100.0100, L500.4050, L501.2300, L501.5200, L501.9520, L501.9985 ####[facility] [address] [place], [address] Osmolality (U) [Osmolality]O rdered By: Bassem Vann on 05-14-2024 Osmolality ur 505 mOsm/KG >50 [facility] Osmolality, Serumon 05-14-20 24 OSMOLALITY,SER 301 mOsm/KG Normal 280-301 [facility] Comment on above: Performed By: #### L 501.7300 ####[facility] [address] [place], [address] Osmolality, Urineon 05-14-20 24 OSMOLALITY,UR 505 mOsm/KG Normal [facility] Comment on above: Result Comment: Norm al Urine Reference Ranges Random: 50 - 1200 mOsm/kg H20 depending on fluid intake Random: >850 mOsm/kg after 12 hour fluid restriction 24 hour: 300 - 900 mOsm/kg H2O Performed By: #### L 501.7400 ####[facility] [address] [place], [address] Osmolality, serumOrdered By: Bassem Vann on 05-14-2024 Osmolality, serum 301 mOsm/KG 280-301 [facility] Phosphoruson 05-14-2024 Phosphate [Mass/Vol] 3.2 mg/dL Normal 2.5-4.9 [facility] Comment on above: Performed By: #### L 100.0100, L500.4050, L501.2300, L501.5200, L501.9520, L501.9985 ####[facility] [address] [place], [address] Sodium urOrdered By: Jailyn Wiggins on 05-14-2024 Sodium ur < 5 mmol/L Not Establ. [facility] TSH QnOrdered By: Bassem santillan on 05-14-2024 Serum or plasma thyroid stimulating hormone (TSH) measurement (units/volume) 0.346 uIU/mL Low 0.358-3.74 0 [facility] Thyroid Stim Hormone (TSH)on 05-14-2024 TSH 0.346 uIU/mL Low 0.358-3.74 0 [facility] Comment on above: Performed By: #### L 100.0100, L500.4050, L501.2300, L501.5200, L501.9520, L501.9985 ####[facility] [address] [place], [address] Urine Sodiumon 05-14-2024 UR NA < 5 Normal Not Establ. [facility] Comment on above: Performed By: #### L 501.5500 ####[facility] [address] [place], [address] Abdomen/Pelvis without Conto n 05-13-2024 Abdomen/Pelvis without Cont Normal [facility] Bacteria LM.HPF (Urine sed) [#/Area]Ordered By: Tru Mayer on 05-13-2024 Urine sediment bacteria count by microscopy (number/high power field) 1+ /hpf None Seen [facility] Base excess Calc (BldV) [Mol es/Vol]Ordered By: Bassem Vann on 05-13-2024 Venous blood base excess measurement -4 mmol/L Low -1.0-3.5 [facility] CBC W/Diff, Automatedon 04-22 Absolute Lymph 0.80 X10 3/uL Low 0.83-4.51 [facility] Comment on above: Performed By: #### L 100.0100, L500.4050, L501.2450, L503.6005 ####[facility] [address] [place], [address] Absolute Neut 10.5 X10 3/uL High 2.0-7.7 [facility] Comment on above: Performed By: #### L 100.0100, L500.4050, L501.2450, L503.6005 ####[facility] [address] [place], [address] Basophils/100 WBC (Bld) 0.4 % Normal 0-1 [facility] Comment on above: Performed By: #### L 100.0100, L500.4050, L501.2450, L503.6005 ####[facility] [address] [place], [address] Eosinophils/100 WBC (Bld) 0.4 % Normal 0-5 [facility] Comment on above: Performed By: #### L 100.0100, L500.4050, L501.2450, L503.6005 ####[facility] [address] [place], [address] Erythrocyte distribution width (RBC) [Ratio] 16.8 % High 11.6-14.6 [facility] Comment on above: Performed By: #### L 100.0100, L500.4050, L501.2450, L503.6005 ####[facility] [address] [place], [address] Hematocrit (Bld) [Volume fraction] 38.7 % Normal 37-47 [facility] Comment on above: Performed By: #### L 100.0100, L500.4050, L501.2450, L503.6005 ####[facility] [address] [place], [address] Hemoglobin (Bld) [Mass/Vol] 12.3 g/dL Normal 12.0-15.0 [facility] Comment on above: Performed By: #### L 100.0100, L500.4050, L501.2450, L503.6005 ####[facility] [address] [place], [address] IG% 0.700 Normal 0.0-0.9 [facility] Comment on above: Result Comment: IG% - Immature Granulocytes (promyelocytes, myelocytes andmetamyelocytes) > 1% indicates that a LEFT SHIFT is Present. Performed By: #### L 100.0100, L500.4050, L501.2450, L503.6005 ####[facility] [address] [place], [address] Lymphocytes/100 WBC (Bld) 6.6 % Low 19-41 [facility] Comment on above: Performed By: #### L 100.0100, L500.4050, L501.2450, L503.6005 ####[facility] [address] [place], [address] MCH (RBC) [Entitic mass] 29.0 pg Normal 27.0-32.0 [facility] Comment on above: Performed By: #### L 100.0100, L500.4050, L501.2450, L503.6005 ####[facility] [address] [place], [address] MCHC (RBC) [Mass/Vol] 31.8 g/dL Low 32-36 [facility] Comment on above: Performed By: #### L 100.0100, L500.4050, L501.2450, L503.6005 ####[facility] [address] [place], [address] MCV (RBC) [Entitic vol] 91.3 fL Normal 81-99 [facility] Comment on above: Performed By: #### L 100.0100, L500.4050, L501.2450, L503.6005 ####[facility] [address] [place], [address] Monocytes/100 WBC (Bld) 5.4 % Normal 0-10 [facility] Comment on above: Performed By: #### L 100.0100, L500.4050, L501.2450, L503.6005 ####[facility] [address] [place], [address] Neutrophils/100 WBC (Bld) 86.5 % High 47-70 [facility] Comment on above: Performed By: #### L 100.0100, L500.4050, L501.2450, L503.6005 ####[facility] [address] [place], [address] Nucleated RBC (Bld) [#/Vol] 0 10*3/uL Normal 0-5 [facility] Comment on above: Performed By: #### L 100.0100, L500.4050, L501.2450, L503.6005 ####[facility] [address] [place], [address] Platelet mean volume (Bld) [Entitic vol] 9.5 fL Normal 6.2-12.0 [facility] Comment on above: Performed By: #### L 100.0100, L500.4050, L501.2450, L503.6005 ####[facility] [address] [place], [address] Platelets (Bld) [#/Vol] 650 10*3/uL High 150-450 [facility] Comment on above: Performed By: #### L 100.0100, L500.4050, L501.2450, L503.6005 ####[facility] [address] [place], [address] RBC (Bld) [#/Vol] 4.24 10*6/uL Normal 4.2-5.4 [facility] Comment on above: Performed By: #### L 100.0100, L500.4050, L501.2450, L503.6005 ####[facility] [address] [place], [address] RDW SD 55.6 fl High 35.1-43.9 [facility] Comment on above: Performed By: #### L 100.0100, L500.4050, L501.2450, L503.6005 ####[facility] [address] [place], [address] WBC (Bld) [#/Vol] 12.1 10*3/uL High 4.4-11.0 [facility] Comment on above: Performed By: #### L 100.0100, L500.4050, L501.2450, L503.6005 ####[facility] [address] [place], [address] CO2 (BldV) [Moles/Vol]Ordere d By: Bassem Vann on 05-13-2024 Venous blood total carbon dioxide measurement 23 mmol/L - [facility] CO2 (BldV) [Partial pressure ]Ordered By: Bassem Vann on 05-13-2024 Venous blood partial pressure of carbon dioxide measurement 41.4 mmHg 41-51 [facility] Clarity (U)Ordered By: Tru Mayer on 05-13-2024 Urine clarity Cloudy Clear [facility] Color (U)Ordered By: Tru Gore on 05-13-2024 Urine color determination Yellow Yellow [facility] Comprehensive Metabolic Prof ilon 05-13-2024 Albumin [Mass/Vol] 3.6 g/dL Normal 3.2-5.0 [facility] Comment on above: Performed By: #### L 100.0100, L500.4050, L501.2450, L503.6005 ####[facility] [address] [place], [address] Albumin/Globulin [Mass ratio] 0.7 {ratio} Low 0.9-2.4 [facility] Comment on above: Performed By: #### L 100.0100, L500.4050, L501.2450, L503.6005 ####[facility] [address] [place], [address] ALK P 146 U/L High 45-117 [facility] Comment on above: Performed By: #### L 100.0100, L500.4050, L501.2450, L503.6005 ####[facility] [address] [place], [address] ALT [Catalytic activity/Vol] 29 U/L Normal 13-56 [facility] Comment on above: Performed By: #### L 100.0100, L500.4050, L501.2450, L503.6005 ####[facility] [address] [place], [address] AST [Catalytic activity/Vol] 34 U/L Normal 15-37 [facility] Comment on above: Result Comment: Mode rate Hemolysis, Result may be falsely increased. Performed By: #### L 100.0100, L500.4050, L501.2450, L503.6005 ####[facility] [address] [place], [address] Bilirubin [Mass/Vol] 0.70 mg/dL Normal 0.20-1.00 [facility] Comment on above: Result Comment: For patients on eltrombopag therapy, use of Dimension Nora TBIL is not recommended. Performed By: #### L 100.0100, L500.4050, L501.2450, L503.6005 ####[facility] [address] [place], [address] BUN/CRE 19.0 RATIO Normal 10-20 [facility] Comment on above: Performed By: #### L 100.0100, L500.4050, L501.2450, L503.6005 ####[facility] [address] [place], [address] CA,Total 8.6 mg/dL Normal 8.5-10.1 [facility] Comment on above: Performed By: #### L 100.0100, L500.4050, L501.2450, L503.6005 ####[facility] [address] [place], [address] Chloride [Moles/Vol] 94 mmol/L Low 98-107 [facility] Comment on above: Performed By: #### L 100.0100, L500.4050, L501.2450, L503.6005 ####[facility] [address] [place], [address] CO2 [Moles/Vol] 18.0 mmol/L Low 21.0-32.0 [facility] Comment on above: Performed By: #### L 100.0100, L500.4050, L501.2450, L503.6005 ####[facility] [address] [place], [address] Creatinine [Mass/Vol] 2.37 mg/dL High 0.55-1.02 [facility] Comment on above: Result Comment: The validity of the calculated GFR GFRAA in patients over70 years has not been determined. Clinical correlation isessential. Performed By: #### L 100.0100, L500.4050, L501.2450, L503.6005 ####[facility] [address] [place], [address] ECRCL 19.96 ml/min Normal [facility] Comment on above: Performed By: #### L 100.0100, L500.4050, L501.2450, L503.6005 ####[facility] [address] [place], [address] EST GFR - AA 26 mL/min Low >60 [facility] Comment on above: Result Comment: Afri can [place] GFR Calc Performed By: #### L 100.0100, L500.4050, L501.2450, L503.6005 ####[facility] [address] [place], [address] GAP 12 Normal 5-15 [facility] Comment on above: Performed By: #### L 100.0100, L500.4050, L501.2450, L503.6005 ####[facility] [address] [place], [address] GFR/1.73 sq M.predicted among non-blacks MDRD (S/P/Bld) [Vol rate/Area] 22 mL/min/{1.73_m2} Low >60 [facility] Comment on above: Result Comment: Non- GFR Calc Performed By: #### L 100.0100, L500.4050, L501.2450, L503.6005 ####[facility] [address] [place], [address] Globulin (S) [Mass/Vol] 5.0 g/dL High 2.2-4.2 [facility] Comment on above: Performed By: #### L 100.0100, L500.4050, L501.2450, L503.6005 ####[facility] [address] [place], [address] Glucose [Mass/Vol] 339 mg/dL High 74-106 [facility] Comment on above: Result Comment: Gluc ose result greater than or equal to 200 mg/dLsuggests DIABETES MELLITUS per A.D.A. criteria. Performed By: #### L 100.0100, L500.4050, L501.2450, L503.6005 ####[facility] [address] [place], [address] Potassium [Moles/Vol] 5.4 mmol/L High 3.5-5.1 [facility] Comment on above: Result Comment: Mode rate Hemolysis, Result may be falsely increased. Performed By: #### L 100.0100, L500.4050, L501.2450, L503.6005 ####[facility] [address] [place], [address] Sodium [Moles/Vol] 124 mmol/L Low 136-145 [facility] Comment on above: Performed By: #### L 100.0100, L500.4050, L501.2450, L503.6005 ####[facility] [address] [place], [address] T PROT 8.6 g/dL High 6.4-8.2 [facility] Comment on above: Performed By: #### L 100.0100, L500.4050, L501.2450, L503.6005 ####[facility] [address] [place], [address] Urea nitrogen [Mass/Vol] 45 mg/dL High 7-18 [facility] Comment on above: Performed By: #### L 100.0100, L500.4050, L501.2450, L503.6005 ####[facility] [address] [place], [address] Emergency Department Summary on 05-13-2024 Emergency Department Summary Normal [facility] Epithelial cells.squamous LM Ql (Urine sed)Ordered By: Tru Mayer on 05-13-2024 Squamous epithelial cells detection in urine sediment by light microscopy 5-10 SEEN /hpf 5-10 [facility] Glucose Ql (U)Ordered By: Refugio Mayer on 05-13-2024 Urine glucose detection 250 mg/dl High Normal [facility] Glucose measurement at bedsi deOrdered By: Bassem Vann on 05-13-2024 Glucose measurement at bedside 277 mg/dL High 74-106 [facility] H AND P Exam - Hospitaliston 05-13-2024 H&P Exam - Hospitalist Normal [facility] Hyaline casts LM.LPF (Urine sed) [#/Area]Ordered By: Tru Mayer on 12-23-2024 Urine sediment hyaline cast count by microscopy (number/low power field) 0-5 SEEN /lpf 0-5 [facility] Lactic Acidon 05-13-2024 Lactate [Moles/Vol] 1.7 mmol/L Normal 0.4-1.9 [facility] Comment on above: Performed By: #### L 503.6005 ####[facility] [address] [place], [place], [address] Lactate [Moles/Vol] 2.4 mmol/L Invalid Interpretation Code 0.4-1.9 [facility] Comment on above: Order Comment: Y Result Comment: Crit ical Result(s) Called at: 18:09:14 05/13/2024 by: GUERRERO. Results read back by Efrain Durham Performed By: #### L 100.0100, L500.4050, L501.2450, L503.6005 ####[facility] [address] [place], [address] Lactic acid measurementOrder ed By: Tru Mayer on 05-13-2024 Lactic acid measurement 1.7 mmol/L 0.4-2.0 [facility] Leukocyte esterase Test stri p Ql (U)Ordered By: Tru Mayer on 05-13-2024 Urine leukocyte esterase detection by dipstick 25 /ul High Negative [facility] Lipaseon 05-13-2024 Lipase [Catalytic activity/Vol] 16 U/L Normal 13-75 [facility] Comment on above: Result Comment: Adam richardson note:LIPASE revised reference range effective 22.New Lipase methodology. Expected to produce lower valuesthan the previous assay method.NEW Reference Range: 13 - 75 U/L Performed By: #### L 100.0100, L500.4050, L501.2450, L503.6005 ####[facility] [address] [place], [address] Lipase measurementOrdered By : Tru Mayer on 05-13-2024 Lipase measurement 16 U/L 13-75 [facility] Mucus LM Ql (Urine sed)Order ed By: Tru Mayer on 05-13-2024 Mucus detection in urine sediment by light microscopy 0 SEEN /hpf [facility] No Panel InformationOrdered By: Bassem Vann on 05-13-2024 FRIEDA [facility] Not entered [facility] Oxygen (BldV) [Partial press ure]Ordered By: Bassem Vann on 05-13-2024 Venous blood partial pressure of oxygen measurement 48 mmHg High 25-40 [facility] Protein Test strip Ql (U)Ord ered By: Tru Mayer on 05-13-2024 Urine protein assay by test strip, semi-quantitative 30 mg/dl High Negative [facility] Specific gravity (U) [Rel de nsity]Ordered By: Tru Mayer on 05-13-2024 Urine specific gravity measurement 1.020 1.002-1.03 0 [facility] Urinalysis, Completeon 05-13 BACTERIA 1+ /hpf Normal None Seen [facility] Comment on above: Order Comment: CLEAN CATCH Performed By: #### L 400.0001 ####[facility] [address] [place], [place], [address] CAST,HYALINE 0-5 SEEN Normal 0-5 [facility] Comment on above: Order Comment: CLEAN CATCH Performed By: #### L 400.0001 ####[facility] [address] [place], [place], [id number] EPI,SQUAMOUS 5-10 SEEN Normal 5-10 [facility] Comment on above: Order Comment: CLEAN CATCH Performed By: #### L 400.0001 ####[facility] [address] [place], [place], [phone] RBC 0-5 SEEN Normal 0-5 [facility] Comment on above: Order Comment: CLEAN CATCH Performed By: #### L 400.0001 ####[facility] [address] [place], [place], [phone] WBC 0-5 SEEN Normal 0-5 [facility] Comment on above: Order Comment: CLEAN CATCH Performed By: #### L 400.0001 ####[facility] [address] [place], [place], [address] Mucus Ql (Urine sed) 0 SEEN Normal [facility] Comment on above: Order Comment: CLEAN CATCH Performed By: #### L 400.0001 ####[facility] [address] [place], [place], [address] Urine blood detectionOrdered By: Tru Mayer on 05-13-2024 Urine blood detection 10 /ul High Negative [facility] Urine total bilirubin detect ion by test stripOrdered By: Tru Mayer on 05-13-2024 Urine total bilirubin detection by test strip Negative Negative [facility] Urobilinogen Ql (U)Ordered B y: Tru Mayer on 05-13-2024 Urine urobilinogen measurement Normal mg/dl Normal [facility] Valproate levelOrdered By: Raghavendra Vann on 05-13-2024 Valproate level 11 ug/mL Low 50-100 [facility] Valproic Acid (Depakene) Lev gerardo 05-13-2024 VALPROIC ACID 11 ug/mL Low 50-100 [facility] Comment on above: Performed By: #### L 501.8100 ####[facility] [address] [place], [place], [address] Venous Blood Gason 4 Blood Gas Type FRIEDA Normal [facility] Comment on above: Performed By: #### L 9000.0810 ####[facility] [address] [place], [address] CO2 [Moles/Vol] 23 mmol/L Normal 23-33 [facility] Comment on above: Performed By: #### L 9000.0810 ####[facility] [address] [place], [address] HCO3 (Bld) [Moles/Vol] 22 mmol/L Normal 22-26 [facility] Comment on above: Performed By: #### L 9000.0810 ####[facility] [address] [place], [address] O2 Delivery Dev Not entered Normal [facility] Comment on above: Performed By: #### L 9000.0810 ####[facility] [address] [place], [address] SITE Not entered Normal [facility] Comment on above: Performed By: #### L 9000.0810 ####[facility] [address] [place], [address] VBG BE -4 mmol/L Low -1.0-3.5 [facility] Comment on above: Performed By: #### L 9000.0810 ####[facility] [address] [place], [address] VBG pCO2 41.4 mmHg Normal 41-51 [facility] Comment on above: Performed By: #### L 9000.0810 ####[facility] [address] [place], [address] VBG pH 7.33 Normal 7.32-7.42 [facility] Comment on above: Performed By: #### L 9000.0810 ####[facility] [address] [place], [address] VBG PO2 48 mmHg High 25-40 [facility] Comment on above: Performed By: #### L 9000.0810 ####[facility] [address] [place], [address] VBG SO2 80 High 50-70 [facility] Comment on above: Performed By: #### L 9000.0810 ####[facility] [address] [place], [address] Venous blood bicarbonate joshua surementOrdered By: Bassem Vann on 05-13-2024 Venous blood bicarbonate measurement 22 mmol/L 22-26 [facility] Venous blood oxygen saturati on measurementOrdered By: Bassem Vann on 05-13-2024 Venous blood oxygen saturation measurement 80 % High 50-70 [facility] White blood cell countOrdere d By: Tru Mayer on 05-13-2024 White blood cell count 0-5 SEEN /hpf 0-5 [facility] pH (BldV)Ordered By: Bassem wyatt on 05-13-2024 Venous blood pH measurement 7.33 7.32-7.42 [facility] pH (U)Ordered By: Tru Dale on 05-13-2024 Urine pH 5.0 5.0 - 8.0 [facility] Carotid Duplex Ultrasoundon 04-22-2024 Carotid Duplex Ultrasound Normal [facility] Stress Reporton 04-22-2024 Stress Report Normal [facility] Internal Medicine Office Vis iton 03-25-2024 Internal Medicine Office Visit Normal [facility] Cardiology Visit Reporton Cardiology Visit Report Normal [facility] Comprehensive Metabolic Prof ilon 03-20-2024 Albumin [Mass/Vol] 3.4 g/dL Normal 3.2-5.0 [facility] Comment on above: Performed By: #### L 500.4050, L500.4100, L501.9520, L506.0400 ####[facility] [address] [place], [address] Albumin/Globulin [Mass ratio] 0.8 {ratio} Low 0.9-2.4 [facility] Comment on above: Performed By: #### L 500.4050, L500.4100, L501.9520, L506.0400 ####[facility] [address] [place], [address] ALK P 108 U/L Normal 45-117 [facility] Comment on above: Performed By: #### L 500.4050, L500.4100, L501.9520, L506.0400 ####[facility] [address] [place], [address] ALT [Catalytic activity/Vol] 22 U/L Normal 13-56 [facility] Comment on above: Performed By: #### L 500.4050, L500.4100, L501.9520, L506.0400 ####[facility] [address] [place], [address] AST [Catalytic activity/Vol] 19 U/L Normal 15-37 [facility] Comment on above: Performed By: #### L 500.4050, L500.4100, L501.9520, L506.0400 ####[facility] [address] [place], [address] Bilirubin [Mass/Vol] 0.50 mg/dL Normal 0.20-1.00 [facility] Comment on above: Result Comment: For patients on eltrombopag therapy, use of Dimension Nora TBIL is not recommended. Performed By: #### L 500.4050, L500.4100, L501.9520, L506.0400 ####[facility] [address] [place], [address] BUN/CRE 14.3 RATIO Normal 10-20 [facility] Comment on above: Performed By: #### L 500.4050, L500.4100, L501.9520, L506.0400 ####[facility] [address] [place], [address] CA,Total 8.7 mg/dL Normal 8.5-10.1 [facility] Comment on above: Performed By: #### L 500.4050, L500.4100, L501.9520, L506.0400 ####[facility] [address] [place], [address] Chloride [Moles/Vol] 99 mmol/L Normal 98-107 [facility] Comment on above: Performed By: #### L 500.4050, L500.4100, L501.9520, L506.0400 ####[facility] [address] [place], [address] CO2 [Moles/Vol] 24.0 mmol/L Normal 21.0-32.0 [facility] Comment on above: Performed By: #### L 500.4050, L500.4100, L501.9520, L506.0400 ####[facility] [address] [place], [address] Creatinine [Mass/Vol] 1.12 mg/dL High 0.55-1.02 [facility] Comment on above: Result Comment: The validity of the calculated GFR GFRAA in patients over70 years has not been determined. Clinical correlation isessential. Performed By: #### L 500.4050, L500.4100, L501.9520, L506.0400 ####[facility] [address] [place], [address] EST GFR - AA 62 mL/min Normal >60 [facility] Comment on above: Result Comment: Afri can [place] GFR Calc Performed By: #### L 500.4050, L500.4100, L501.9520, L506.0400 ####[facility] [address] [place], [address] GAP 8 Normal 5-15 [facility] Comment on above: Performed By: #### L 500.4050, L500.4100, L501.9520, L506.0400 ####[facility] [address] [place], [address] GFR/1.73 sq M.predicted among non-blacks MDRD (S/P/Bld) [Vol rate/Area] 52 mL/min/{1.73_m2} Low >60 [facility] Comment on above: Result Comment: Non- GFR Calc Performed By: #### L 500.4050, L500.4100, L501.9520, L506.0400 ####[facility] [address] [place], [address] Globulin (S) [Mass/Vol] 4.1 g/dL Normal 2.2-4.2 [facility] Comment on above: Performed By: #### L 500.4050, L500.4100, L501.9520, L506.0400 ####[facility] [address] [place], [address] Glucose [Mass/Vol] 154 mg/dL High 74-106 [facility] Comment on above: Result Comment: Fast ing Glucose result greater than or equal to 126 mg/dLsuggests DIABETES MELLITUS per A.D.A. criteria. Performed By: #### L 500.4050, L500.4100, L501.9520, L506.0400 ####[facility] [address] [place], [address] Potassium [Moles/Vol] 4.2 mmol/L Normal 3.5-5.1 [facility] Comment on above: Performed By: #### L 500.4050, L500.4100, L501.9520, L506.0400 ####[facility] [address] [place], [address] Sodium [Moles/Vol] 131 mmol/L Low 136-145 [facility] Comment on above: Performed By: #### L 500.4050, L500.4100, L501.9520, L506.0400 ####[facility] [address] [place], [address] T PROT 7.5 g/dL Normal 6.4-8.2 [facility] Comment on above: Performed By: #### L 500.4050, L500.4100, L501.9520, L506.0400 ####[facility] [address] [place], [address] Urea nitrogen [Mass/Vol] 16 mg/dL Normal 7-18 [facility] Comment on above: Performed By: #### L 500.4050, L500.4100, L501.9520, L506.0400 ####[facility] [address] [place], [address] Endocrinology Visit Reporton 03-20-2024 Endocrinology Visit Report Normal [facility] Lipid Profileon 03-20-2024 Cholesterol [Mass/Vol] 198 mg/dL Normal 200 [facility] Comment on above: Result Comment: <200 mg/dL Desirable 200-240 mg/dL Borderline >240 mg/dL High Risk Performed By: #### L 500.4050, L500.4100, L501.9520, L506.0400 ####[facility] [address] [place], [address] Cholesterol in HDL [Mass/Vol] 54 mg/dL Normal [facility] Comment on above: Result Comment: The drugs N-Acetylcysteine and Metamizole may falselydepress this assay. Reference Range HDL <40 mg/dL Low HDL Cholesterol HDL >or= 60 mg/dL High HDL Cholesterol Performed By: #### L 500.4050, L500.4100, L501.9520, L506.0400 ####[facility] [address] [place], [address] Cholesterol in LDL [Mass/Vol] 65 mg/dL Normal 0-130 [facility] Comment on above: Performed By: #### L 500.4050, L500.4100, L501.9520, L506.0400 ####[facility] [address] [place], [address] Cholesterol in VLDL [Mass/Vol] 79 mg/dL High 5-40 [facility] Comment on above: Performed By: #### L 500.4050, L500.4100, L501.9520, L506.0400 ####[facility] [address] [place], [address] Triglyceride [Mass/Vol] 396 mg/dL High [facility] Comment on above: Result Comment: The drugs N-Acetylcysteine and Metamizole may falselydepress this assay.Serum Triglycerides Reference Interval Normal <150 mg/dL Borderline high 150 - 199 mg/dL High 200 - 499 mg/dL Very High > or = 500 mg/dL Performed By: #### L 500.4050, L500.4100, L501.9520, L506.0400 ####[facility] [address] [place], [address] T4 Free Directon 03-20-2024 T4 FREE DIRECT 1.32 ng/dL Normal 0.76-1.46 [facility] Comment on above: Performed By: #### L 500.4050, L500.4100, L501.9520, L506.0400 ####[facility] [address] [place], [address] Thyroid Stim Hormone (TSH)on 03-20-2024 TSH 3.880 uIU/mL High 0.358-3.74 0 [facility] Comment on above: Performed By: #### L 500.4050, L500.4100, L501.9520, L506.0400 ####[facility] [address] [place], [address] Ankle Brachial Indexon 03-18 Ankle Brachial Index Normal [facility] SCRN MAMM (CAD)W/JOSE BILATo n 02-23-2024 SCRN MAMM (CAD)W/JOSE BILAT Normal [facility] Internal Medicine Office Vis iton 02-19-2024 Internal Medicine Office Visit Normal [facility] 12 Lead EKGon 01-29-2024 12 Lead EKG Normal [facility] Basic Metabolic Profile (BMP )on 01-29-2024 BUN/CRE 21.3 RATIO High 03-10 [facility] Comment on above: Performed By: #### L 300.3900, L100.0100, L500.2500 ####[facility] [address] [place], [address] CA,Total 9.1 mg/dL Normal 8.5-10.1 [facility] Comment on above: Performed By: #### L 300.3900, L100.0100, L500.2500 ####[facility] [address] [place], [address] Chloride [Moles/Vol] 100 mmol/L Normal 98-107 [facility] Comment on above: Performed By: #### L 300.3900, L100.0100, L500.2500 ####[facility] [address] [place], [address] CO2 [Moles/Vol] 21.0 mmol/L Normal 21.0-32.0 [facility] Comment on above: Performed By: #### L 300.3900, L100.0100, L500.2500 ####[facility] [address] [place], [address] Creatinine [Mass/Vol] 1.36 mg/dL High 0.55-1.02 [facility] Comment on above: Result Comment: The validity of the calculated GFR GFRAA in patients over70 years has not been determined. Clinical correlation isessential. Performed By: #### L 300.3900, L100.0100, L500.2500 ####[facility] [address] [place], [address] ECRCL 35.80 ml/min Normal [facility] Comment on above: Performed By: #### L 300.3900, L100.0100, L500.2500 ####[facility] [address] [place], [address] EST GFR - AA 50 mL/min Low >60 [facility] Comment on above: Result Comment: Afri can [place] GFR Calc Performed By: #### L 300.3900, L100.0100, L500.2500 ####[facility] [address] [place], [address] GAP 8 Normal 5-15 [facility] Comment on above: Performed By: #### L 300.3900, L100.0100, L500.2500 ####[facility] [address] [place], [address] GFR/1.73 sq M.predicted among non-blacks MDRD (S/P/Bld) [Vol rate/Area] 41 mL/min/{1.73_m2} Low >60 [facility] Comment on above: Result Comment: Non- GFR Calc Performed By: #### L 300.3900, L100.0100, L500.2500 ####[facility] [address] [place], [address] Glucose [Mass/Vol] 76 mg/dL Normal 74-106 [facility] Comment on above: Performed By: #### L 300.3900, L100.0100, L500.2500 ####[facility] [address] [place], [address] Potassium [Moles/Vol] 4.4 mmol/L Normal 3.5-5.1 [facility] Comment on above: Result Comment: Mode rate Hemolysis, Result may be falsely increased. Performed By: #### L 300.3900, L100.0100, L500.2500 ####[facility] [address] [place], [address] Sodium [Moles/Vol] 129 mmol/L Low 136-145 [facility] Comment on above: Performed By: #### L 300.3900, L100.0100, L500.2500 ####[facility] [address] [place], [address] Urea nitrogen [Mass/Vol] 29 mg/dL High 7-18 [facility] Comment on above: Performed By: #### L 300.3900, L100.0100, L500.2500 ####[facility] [address] [place], [address] Brain/Head without Contrasto n 01-29-2024 Brain/Head without Contrast Normal [facility] CBC W/Diff, Automatedon Absolute Lymph 1.95 X10 3/uL Normal 0.83-4.51 [facility] Comment on above: Performed By: #### L 300.3900, L100.0100, L500.2500 ####[facility] [address] [place], [address] Absolute Neut 6.7 X10 3/uL Normal 2.0-7.7 [facility] Comment on above: Performed By: #### L 300.3900, L100.0100, L500.2500 ####[facility] [address] [place], [address] Basophils/100 WBC (Bld) 0.6 % Normal 0-1 [facility] Comment on above: Performed By: #### L 300.3900, L100.0100, L500.2500 ####[facility] [address] [place], [address] Eosinophils/100 WBC (Bld) 2.0 % Normal 0-5 [facility] Comment on above: Performed By: #### L 300.3900, L100.0100, L500.2500 ####[facility] [address] [place], [address] Erythrocyte distribution width (RBC) [Ratio] 17.0 % High 11.6-14.6 [facility] Comment on above: Performed By: #### L 300.3900, L100.0100, L500.2500 ####[facility] [address] [place], [address] Hematocrit (Bld) [Volume fraction] 29.3 % Low 37-47 [facility] Comment on above: Performed By: #### L 300.3900, L100.0100, L500.2500 ####[facility] [address] [place], [address] Hemoglobin (Bld) [Mass/Vol] 9.2 g/dL Low 12.0-15.0 [facility] Comment on above: Performed By: #### L 300.3900, L100.0100, L500.2500 ####[facility] [address] [place], [address] IG% 1.300 High 0.0-0.9 [facility] Comment on above: Result Comment: IG% - Immature Granulocytes (promyelocytes, myelocytes andmetamyelocytes) > 1% indicates that a LEFT SHIFT is Present. Performed By: #### L 300.3900, L100.0100, L500.2500 ####[facility] [address] [place], [address] Lymphocytes/100 WBC (Bld) 19.9 % Normal 19-41 [facility] Comment on above: Performed By: #### L 300.3900, L100.0100, L500.2500 ####[facility] [address] [place], [address] MCH (RBC) [Entitic mass] 27.8 pg Normal 27.0-32.0 [facility] Comment on above: Performed By: #### L 300.3900, L100.0100, L500.2500 ####[facility] [address] [place], [address] MCHC (RBC) [Mass/Vol] 31.4 g/dL Low 32-36 [facility] Comment on above: Performed By: #### L 300.3900, L100.0100, L500.2500 ####[facility] [address] [place], [address] MCV (RBC) [Entitic vol] 88.5 fL Normal 81-99 [facility] Comment on above: Performed By: #### L 300.3900, L100.0100, L500.2500 ####[facility] [address] [place], [address] Monocytes/100 WBC (Bld) 8.4 % Normal 0-10 [facility] Comment on above: Performed By: #### L 300.3900, L100.0100, L500.2500 ####[facility] [address] [place], [address] Neutrophils/100 WBC (Bld) 67.8 % Normal 47-70 [facility] Comment on above: Performed By: #### L 300.3900, L100.0100, L500.2500 ####[facility] [address] [place], [address] Nucleated RBC (Bld) [#/Vol] 0 10*3/uL Normal 0-5 [facility] Comment on above: Performed By: #### L 300.3900, L100.0100, L500.2500 ####[facility] [address] [place], [address] Platelet mean volume (Bld) [Entitic vol] 8.8 fL Normal 6.2-12.0 [facility] Comment on above: Performed By: #### L 300.3900, L100.0100, L500.2500 ####[facility] [address] [place], [address] Platelets (Bld) [#/Vol] 454 10*3/uL High 150-450 [facility] Comment on above: Performed By: #### L 300.3900, L100.0100, L500.2500 ####[facility] [address] [place], [address] RBC (Bld) [#/Vol] 3.31 10*6/uL Low 4.2-5.4 [facility] Comment on above: Performed By: #### L 300.3900, L100.0100, L500.2500 ####[facility] [address] [place], [address] RDW SD 55.1 fl High 35.1-43.9 [facility] Comment on above: Performed By: #### L 300.3900, L100.0100, L500.2500 ####[facility] [address] [place], [address] WBC (Bld) [#/Vol] 9.8 10*3/uL Normal 4.4-11.0 [facility] Comment on above: Performed By: #### L 300.3900, L100.0100, L500.2500 ####[facility] [address] [place], [address] Chest 1 View (Portable)on Chest 1 View (Portable) Normal [facility] Emergency Department Summary on 01-29-2024 Emergency Department Summary Normal [facility] Prothrombin Time w/INRon INR Normal [facility] Comment on above: Result Comment: Canc elled via OM: MD Ordered Performed By: #### L 300.3900, L100.0100, L500.2500 ####[facility] [address] [place], [address] PROTIME Normal 11.7-14.9 [facility] Comment on above: Result Comment: Canc elled via OM: Ordered Performed By: #### L 300.3900, L100.0100, L500.2500 ####[facility] [address] [place], [address] Absolute lymphocyte countOrd ered By: Denise Uribe on 09-14-2023 Lymphocytes Auto (Unsp spec) [#/Vol] 1.66 10*3/uL 0.83-4.51 [facility] Automated lymphocyte count a s percentage of total leukocytesOrdered By: Denise Uribe on 09-14-2023 Lymphocytes/100 WBC Auto (Unsp spec) 20.1 % 19-41 [facility] Basophil percentageOrdered B y: Denise Uribe on 09-14-2023 Basophil percentage 9.6 g/dL 12.0-15.0 [facility] Basophil percentage 153 mg/dL 74-106 [facility] Basophil percentage 7.9 g/dL 6.4-8.2 [facility] Basophil percentage 0.40 mg/dL 0.20-1.00 [facility] Basophil percentage 132 mmol/L 136-145 [facility] Basophil percentage 4.5 mmol/L 3.5-5.1 [facility] Basophil percentage 97 mmol/L 98-107 [facility] Basophils (Bld) [#/Vol] 8.3 10*3/uL 4.4-11.0 [facility] Basophils (Bld) [#/Vol] 5.6 10*3/uL 2.0-7.7 [facility] Basophils/100 WBC (Bld) 68.1 % 47-70 [facility] Basophils/100 WBC (Bld) 7.7 % 0-10 [facility] Basophils/100 WBC (Bld) 2.7 % 0-5 [facility] Basophils/100 WBC (Bld) 0.8 % 0-1 [facility] Determination of erythrocyte mean corpuscular volume (MCV)Ordered By: Denise Uribe on 09-14-2023 MCV (RBC) [Entitic vol] 93.0 fL 81-99 [facility] Erythrocyte distribution wid th ratioOrdered By: Denise Uribe on 09-14-2023 Erythrocyte distribution width (RBC) [Ratio] 17.2 % 11.6-14.6 [facility] Erythrocyte distribution wid th standard deviationOrdered By: Denise Uribe on 09-14-2023 Erythrocyte distribution width (RBC) [Entitic vol] 58.4 fL 35.1-43.9 [facility] Hematocrit Auto (Bld) [Volum e fraction]Ordered By: Denise Uribe on 09-14-2023 Hematocrit (Bld) [Volume fraction] 30.6 % 37-47 [facility] Immature granulocytes/100 WB C Auto (Bld)Ordered By: Denise Uribe on 09-14-2023 Immature granulocytes/100 WBC (Bld) 0.600 % 0.0-0.9 [facility] Iron measurement (mass/mass) Ordered By: Denise Uribe on 09-14-2023 Iron (Unsp spec) [Mass/Mass] 43 ug/dL 50-170 [facility] No Panel InformationOrdered By: Denise Uribe on 09-14-2023 29.2 pg 27.0-32.0 [facility] 31.4 g/dL 32-36 [facility] 507 K/mm3 150-450 [facility] 9.1 fl 6.2-12.0 [facility] 0 % 0-5 [facility] 34 mL/min >60 [facility] 41 mL/min >60 [facility] 21.2 RATIO 10-20 [facility] 4.6 g/dL 2.2-4.2 [facility] 0.7 RATIO 0.9-2.4 [facility] 115 U/L 45-117 [facility] 29 U/L 13-56 [facility] 23.0 mmol/L 21.0-32.0 [facility] 440 ug/dL 250-450 [facility] 33 ng/mL 8-252 [facility] RBC Auto (Bld) [#/Vol]Ordere d By: Denise Uribe on 09-14-2023 RBC (Bld) [#/Vol] 3.29 10*6/uL 4.2-5.4 [facility] Serum or plasma calcium jamey urement (mass/volume)Ordered By: Denise Uribe on 09-14-2023 Calcium [Mass/Vol] 9.1 mg/dL 8.5-10.1 [facility] Serum or plasma creatinine m easurement (mass/volume)Ordered By: Denise Uribe on 09-14-2023 Creatinine [Mass/Vol] 1.60 mg/dL 0.55-1.02 [facility] Serum or plasma iron saturat ion measurement (mass fraction)Ordered By: Denise Uribe on 09-14-2023 Iron saturation [Mass fraction] 9.8 % 15.0-55.0 [facility] Serum or plasma urea nitroge n measurement (mass/volume)Ordered By: Denise Uribe on 09-14-2023 Urea nitrogen [Mass/Vol] 34 mg/dL 7-18 [facility] Thin prep Papanicolaou smear with manual screeningOrdered By: Denise Uribe on 09-14-2023 Thin prep Papanicolaou smear with manual screening 3.3 g/dL 3.2-5.0 [facility] Thin prep Papanicolaou smear with manual screening 16 U/L 15-37 [facility] Thin prep Papanicolaou smear with manual screening 12 5-15 [facility] Basophil percentageOrdered B y: Tobi Riojas on 09-11-2023 Basophil percentage 0 SEEN /hpf 0-5 [facility] Basophil percentage 164 mg/dL 74-106 [facility] Basophil percentage 8.0 g/dL 6.4-8.2 [facility] Basophil percentage 0.50 mg/dL 0.20-1.00 [facility] Basophil percentage 129 mmol/L 136-145 [facility] Basophil percentage 4.6 mmol/L 3.5-5.1 [facility] Basophil percentage 98 mmol/L 98-107 [facility] Bilirubin Test strip Ql (U)O rdered By: Tobi Riojas on 09-11-2023 Bilirubin Ql (U) Negative Negative [facility] Ketones Test strip Ql (U)Ord ered By: Tobi Riojas on 09-11-2023 Ketones Ql (U) Negative Negative [facility] Mucus LM Ql (Urine sed)Order ed By: Tobiswathi Krishnano on 09-11-2023 Mucus Ql (Urine sed) 0 SEEN /hpf [facility] Nitrite Test strip Ql (U)Ord ered By: Tobi Riojas on 09-11-2023 Nitrite Ql (U) Negative Negative [facility] No Panel InformationOrdered By: Tobi Krishnano on 09-11-2023 0 SEEN /hpf 0-5 [facility] 33 mL/min >60 [facility] 40 mL/min >60 [facility] 29.71 ml/min [facility] 21.1 RATIO 10-20 [facility] 4.6 g/dL 2.2-4.2 [facility] 0.7 RATIO 0.9-2.4 [facility] 122 U/L 45-117 [facility] 25 U/L 13-56 [facility] 21.0 mmol/L 21.0-32.0 [facility] Protein Test strip Ql (U)Ord ered By: Tobi Riojas on 09-11-2023 Protein Ql (U) 15 mg/dl Negative [facility] Serum or plasma calcium jamey urement (mass/volume)Ordered By: Tobi Riojas on 09-11-2023 Calcium [Mass/Vol] 8.7 mg/dL 8.5-10.1 [facility] Serum or plasma creatinine m easurement (mass/volume)Ordered By: Tobi Rijoas on 09-11-2023 Creatinine [Mass/Vol] 1.66 mg/dL 0.55-1.02 [facility] Serum or plasma urea nitroge n measurement (mass/volume)Ordered By: Tobi Riojas on 09-11-2023 Urea nitrogen [Mass/Vol] 35 mg/dL 7-18 [facility] Squamous epithelial cells de tection in urine sediment by light microscopyOrdered By: Tobi Riojas on 09-11-2023 Epithelial cells.squamous LM Ql (Urine sed) 0 SEEN /hpf 5-10 [facility] Thin prep Papanicolaou smear with manual screeningOrdered By: Tobi Riojas on 09-11-2023 Thin prep Papanicolaou smear with manual screening 3.4 g/dL 3.2-5.0 [facility] Thin prep Papanicolaou smear with manual screening 29 U/L 15-37 [facility] Thin prep Papanicolaou smear with manual screening 10 5-15 [facility] Urine blood detectionOrdered By: Tobi Riojas on 09-11-2023 RBC Ql (U) Negative Negative [facility] Urine clarityOrdered By: Tobi Riojas on 09-11-2023 Clarity (U) Sl. Cloudy Clear [facility] Urine color determinationOrd ered By: Tobi Riojas on 09-11-2023 Color (U) Straw Yellow [facility] Urine glucose detectionOrder ed By: Tobi Riojas on 09-11-2023 Glucose Ql (U) 1000 mg/dl Normal [facility] Urine leukocyte esterase det ection by dipstickOrdered By: Tobi Riojas on 09-11-2023 Leukocyte esterase Test strip Ql (U) Negative Negative [facility] Urine pHOrdered By: Tobi echevarria on 09-11-2023 pH (U) 6.0 [pH] 5.0 - 8.0 [facility] Urine sediment bacteria coun t by microscopy (number/high power field)Ordered By: Tobi Riojas on 09-11-2023 Bacteria LM.HPF (Urine sed) [#/Area] 0 /[HPF] None Seen [facility] Urine specific gravity measu rementOrdered By: Tobiswathi Riojas on 09-11-2023 Specific gravity (U) [Rel density] 1.010 1.002-1.03 0 [facility] Urine urobilinogen measureme ntOrdered By: Tobi Riojas on 09-11-2023 Urobilinogen Ql (U) Normal mg/dl Normal [facility] Absolute lymphocyte countOrd ered By: Denise Uribe on 08-17-2023 Lymphocytes Auto (Unsp spec) [#/Vol] 1.62 10*3/uL 0.83-4.51 [facility] Automated lymphocyte count a s percentage of total leukocytesOrdered By: Denise Uribe on 08-17-2023 Lymphocytes/100 WBC Auto (Unsp spec) 18.1 % 19-41 [facility] Bacteria identified Cx Nom ( U)Ordered By: Denise Uribe on 08-17-2023 Culture, urine Presumptive C albicans [facility] Basophil percentageOrdered B y: Denise Uribe on 08-17-2023 Basophil percentage 0-5 SEEN /hpf 0-5 [facility] Basophil percentage 10.8 g/dL 12.0-15.0 [facility] Basophil percentage 162 mg/dL 74-106 [facility] Basophil percentage 134 mmol/L 136-145 [facility] Basophil percentage 4.2 mmol/L 3.5-5.1 [facility] Basophil percentage 98 mmol/L 98-107 [facility] Basophils (Bld) [#/Vol] 9.0 10*3/uL 4.4-11.0 [facility] Basophils (Bld) [#/Vol] 6.3 10*3/uL 2.0-7.7 [facility] Basophils/100 WBC (Bld) 0.8 % 0-1 [facility] Basophils/100 WBC (Bld) 70.8 % 47-70 [facility] Basophils/100 WBC (Bld) 6.9 % 0-10 [facility] Basophils/100 WBC (Bld) 2.5 % 0-5 [facility] Chloride [Moles/Vol] 98 mmol/L 98-107 [facility] Eosinophils/100 WBC (Bld) 2.5 % 0-5 [facility] Glucose [Mass/Vol] 162 mg/dL 74-106 [facility] Comment on above: Fasting Glucose resu lt greater than or equal to 126 mg/dL suggests DIABETES MELLITUS per A.D.A. criteria. Hemoglobin (Bld) [Mass/Vol] 10.8 g/dL 12.0-15.0 [facility] Monocytes/100 WBC (Bld) 6.9 % 0-10 [facility] Neutrophils (Bld) [#/Vol] 6.3 10*3/uL 2.0-7.7 [facility] Neutrophils/100 WBC (Bld) 70.8 % 47-70 [facility] Potassium [Moles/Vol] 4.2 mmol/L 3.5-5.1 [facility] Sodium [Moles/Vol] 134 mmol/L 136-145 [facility] WBC (Bld) [#/Vol] 9.0 10*3/uL 4.4-11.0 [facility] Bilirubin Test strip Ql (U)O rdered By: Denise Uribe on 08-17-2023 Bilirubin Ql (U) Negative Negative [facility] Culture, urineOrdered By: Jann Uribe on 08-17-2023 Bacteria identified Cx Nom (U) Presumptive C albicans [facility] Determination of erythrocyte mean corpuscular volume (MCV)Ordered By: Denise Uribe on 03-28-2024 MCV (RBC) [Entitic vol] 91.2 fL 81-99 [facility] Erythrocyte distribution wid th ratioOrdered By: Denise Uribe on 08-17-2023 Erythrocyte distribution width (RBC) [Ratio] 16.0 % 11.6-14.6 [facility] Erythrocyte distribution wid th standard deviationOrdered By: Denise Uribe on 08-17-2023 Erythrocyte distribution width (RBC) [Entitic vol] 52.1 fL 35.1-43.9 [facility] Hematocrit Auto (Bld) [Volum e fraction]Ordered By: Denise Uribe on 08-17-2023 Hematocrit (Bld) [Volume fraction] 33.0 % 37-47 [facility] Immature granulocytes/100 WB C Auto (Bld)Ordered By: Denise Uribe on 08-17-2023 Immature granulocytes/100 WBC (Bld) 0.900 % 0.0-0.9 [facility] Comment on above: IG% - Immature Granu locytes (promyelocytes, myelocytes and metamyelocytes) > 1% indicates that a LEFT SHIFT is Present. Ketones Test strip Ql (U)Ord ered By: Denise Uribe on 08-17-2023 Ketones Ql (U) Negative Negative [facility] Laboratory - Chemistry and C hemistry - challengeOrdered By: Denise Uribe on 08-17-2023 CO2 [Moles/Vol] 27.0 mmol/L 21.0-32.0 [facility] Urea nitrogen/Creatinine [Mass ratio] 23.4 mg/mg 10-20 [facility] Laboratory - Hematology and Cell countsOrdered By: Denise Uribe on 08-17-2023 MCH (RBC) [Entitic mass] 29.8 pg 27.0-32.0 [facility] MCHC (RBC) [Mass/Vol] 32.7 g/dL 32-36 [facility] Nucleated RBC/100 WBC (Bld) [Ratio] 0 % 0-5 [facility] Platelet mean volume (Bld) [Entitic vol] 9.2 fL 6.2-12.0 [facility] Platelets (Bld) [#/Vol] 457 10*3/uL 150-450 [facility] Mucus LM Ql (Urine sed)Order ed By: Denise Uribe on 08-17-2023 Mucus Ql (Urine sed) 0 SEEN /hpf [facility] Nitrite Test strip Ql (U)Ord ered By: Denise Uribe on 08-17-2023 Nitrite Ql (U) Negative Negative [facility] No Panel InformationOrdered By: Denise Uribe on 08-17-2023 Estimated GFR (MDRD) Amer 46 mL/min >60 [facility] Comment on above: GFR Calc Estimated GFR (MDRD) Non-Af Amer 38 mL/min >60 [facility] Comment on above: Non- GFR Calc Urine RBC 0 SEEN /hpf 0-5 [facility] 29.8 pg 27.0-32.0 [facility] 32.7 g/dL 32-36 [facility] 457 K/mm3 150-450 [facility] 9.2 fl 6.2-12.0 [facility] 0 % 0-5 [facility] 0 SEEN /hpf 0-5 [facility] 38 mL/min >60 [facility] 46 mL/min >60 [facility] 23.4 RATIO 10-20 [facility] 27.0 mmol/L 21.0-32.0 [facility] Protein Test strip Ql (U)Ord ered By: Denise Uribe on 08-17-2023 Protein Ql (U) Negative Negative [facility] RBC Auto (Bld) [#/Vol]Ordere d By: Denise Uribe on 08-17-2023 RBC (Bld) [#/Vol] 3.62 10*6/uL 4.2-5.4 [facility] Serum or plasma calcium jamey urement (mass/volume)Ordered By: Denise Uribe on 08-17-2023 Calcium [Mass/Vol] 9.3 mg/dL 8.5-10.1 [facility] Serum or plasma creatinine m easurement (mass/volume)Ordered By: Denise Uribe on 08-17-2023 Creatinine [Mass/Vol] 1.45 mg/dL 0.55-1.02 [facility] Comment on above: The validity of the calculated GFR & GFRAA in patients over 70 years has not been determined. Clinical correlation is essential. Serum or plasma urea nitroge n measurement (mass/volume)Ordered By: Denise Uribe on 08-17-2023 Urea nitrogen [Mass/Vol] 34 mg/dL 7-18 [facility] Squamous epithelial cells de tection in urine sediment by light microscopyOrdered By: Denise Uribe on 08-17-2023 Epithelial cells.squamous LM Ql (Urine sed) 0-5 SEEN /hpf 5-10 [facility] Thin prep Papanicolaou smear with manual screeningOrdered By: Denise Uribe on 08-17-2023 Thin prep Papanicolaou smear with manual screening 9 5-15 [facility] Urine blood detectionOrdered By: Denise Uribe on 08-17-2023 RBC Ql (U) Negative Negative [facility] Urine clarityOrdered By: Mina Uribe on 08-17-2023 Clarity (U) Clear Clear [facility] Urine color determinationOrd ered By: Denise Uribe on 08-17-2023 Color (U) Yellow Yellow [facility] Urine glucose detectionOrder ed By: Denise Uribe on 08-17-2023 Glucose Ql (U) 1000 mg/dl Normal [facility] Urine leukocyte esterase det ection by dipstickOrdered By: Denise Uribe on 08-17-2023 Leukocyte esterase Test strip Ql (U) 100 /ul Negative [facility] Urine pHOrdered By: Denise pereira on 08-17-2023 pH (U) 6.5 [pH] 5.0 - 8.0 [facility] Urine sediment bacteria coun t by microscopy (number/high power field)Ordered By: Denise Uribe on 08-17-2023 Bacteria LM.HPF (Urine sed) [#/Area] 0 /[HPF] None Seen [facility] Urine sediment yeast count b y microscopy (number/high powered field)Ordered By: Denise Uribe on 08-17-2023 Yeast LM.HPF (Urine sed) [#/Area] RARE /hpf None Seen [facility] Urine specific gravity measu rementOrdered By: Denise Uribe on 08-17-2023 Specific gravity (U) [Rel density] 1.010 1.002-1.03 0 [facility] Urine urobilinogen measureme ntOrdered By: Denise Uribe on 08-17-2023 Urobilinogen Ql (U) Normal mg/dl Normal [facility] Laboratory - Hematology and Cell countson 05-08-2023 HbA1c (Bld) [Mass fraction] 9.6 % 4.2-6.3 [facility] Basophil percentageOrdered B y: Denise Uribe on 02-16-2023 Chloride [Moles/Vol] 98 mmol/L 98-107 [facility] Glucose [Mass/Vol] 319 mg/dL 74-106 [facility] Comment on above: Glucose result great er than or equal to 200 mg/dLsuggests DIABETES MELLITUS per A.D.A. criteria. Potassium [Moles/Vol] 4.4 mmol/L 3.5-5.1 [facility] Sodium [Moles/Vol] 130 mmol/L 136-145 [facility] WBC (Bld) [#/Vol] 9.3 10*3/uL 4.4-11.0 [facility] Blood erythrocytes count (nu mber/volume)Ordered By: Denise Uribe on 02-16-2023 RBC (Bld) [#/Vol] 4.22 10*6/uL 4.2-5.4 [facility] Blood hemoglobin measurement (mass/volume)Ordered By: Denise Uribe on 02-16-2023 Hemoglobin (Bld) [Mass/Vol] 13.0 g/dL 12.0-15.0 [facility] Blood platelet mean volumeOr dered By: Denise Uribe on 02-16-2023 Platelet mean volume (Bld) [Entitic vol] 9.5 fL 6.2-12.0 [facility] Determination of erythrocyte mean corpuscular volume (MCV)Ordered By: Denise Uribe on 02-16-2023 MCV (RBC) [Entitic vol] 94.1 fL 81-99 [facility] Hematocrit Auto (Bld) [Volum e fraction]Ordered By: Denise Uribe on 02-16-2023 Hematocrit (Bld) [Volume fraction] 39.7 % 37-47 [facility] Iron measurement (mass/mass) Ordered By: Denise Uribe on 02-16-2023 Iron (Unsp spec) [Mass/Mass] 61 ug/dL 50-170 [facility] Laboratory - Chemistry and C hemistry - challengeOrdered By: Denise Uribe on 02-16-2023 CO2 [Moles/Vol] 26.0 mmol/L 21.0-32.0 [facility] Urea nitrogen/Creatinine [Mass ratio] 22.0 mg/mg 10-20 [facility] Laboratory - Hematology and Cell countson 02-16-2023 HbA1c (Bld) [Mass fraction] 9.6 % 4.2-6.3 [facility] Laboratory - Hematology and Cell countsOrdered By: Denise Uribe on 02-16-2023 Erythrocyte distribution width (RBC) [Entitic vol] 51.8 fL 35.1-43.9 [facility] Erythrocyte distribution width (RBC) [Ratio] 15.0 % 11.6-14.6 [facility] MCH (RBC) [Entitic mass] 30.8 pg 27.0-32.0 [facility] MCHC Auto (RBC) [Mass/Vol]Or dered By: Denise Uribe on 02-16-2023 MCHC (RBC) [Mass/Vol] 32.7 g/dL 32-36 [facility] No Panel InformationOrdered By: Denise Uribe on 02-16-2023 Total Iron Binding Capacity 372 ug/dL 250-450 [facility] Urine Microalbumin/Creatinin e Ratio 137.5 mg/g CRE <30 [facility] Vitamin D 25-Hydroxy 55.0 ng/mL [facility] Comment on above: Vitamin D 25(OH) Sta tus Range Deficiency <20 ng/mL (50nmol/L) Insufficiency 20 - 30 ng/mL (50 - 75 nmol/L) Sufficiency 30 - 100 ng/mL (75 - 250 nmol/L) Toxicity >100 ng/mL (>250 nmol/L) Estimated GFR (MDRD) Amer 52 mL/min >60 [facility] Comment on above: GFR Calc Estimated GFR (MDRD) Non-Af Amer 43 mL/min >60 [facility] Comment on above: Non- GFR Calc Platelets bldOrdered By: Mina Uribe on 02-16-2023 Platelets (Bld) [#/Vol] 453 10*3/uL 150-450 [facility] Serum or plasma calcium jamey urement (mass/volume)Ordered By: Denise Uribe on 02-16-2023 Calcium [Mass/Vol] 8.8 mg/dL 8.5-10.1 [facility] Serum or plasma creatinine m easurement (mass/volume)Ordered By: Denise Uribe on 02-16-2023 Creatinine [Mass/Vol] 1.32 mg/dL 0.55-1.02 [facility] Comment on above: The validity of the calculated GFR & GFRAA in patients over 70 years has not been determined. Clinical correlation is essential. Serum or plasma ferritin joshua surement (mass/volume)Ordered By: Denise Uribe on 02-16-2023 Ferritin [Mass/Vol] 42 ng/mL 8-252 [facility] Serum or plasma iron saturat ion measurement (mass fraction)Ordered By: Denise Uribe on 02-16-2023 Iron saturation [Mass fraction] 16.4 % 15.0-55.0 [facility] Serum or plasma urea nitroge n measurement (mass/volume)Ordered By: Denise Uribe on 02-16-2023 Urea nitrogen [Mass/Vol] 29 mg/dL 7-18 [facility] Thin prep Papanicolaou smear with manual screeningOrdered By: Denise Uribe on 02-16-2023 Thin prep Papanicolaou smear with manual screening 60.5 mg/L NO RANGE EST. [facility] Thin prep Papanicolaou smear with manual screening 6 5-15 [facility] Urine creatinine measurement (mass/volume)Ordered By: Denise Uribe on 02-16-2023 Creatinine (U) [Mass/Vol] 44.00 mg/dL NO RANGE EST. [facility] Basophil percentageOrdered B y: Denise Uribe on 12-20-2022 Creatinine [Mass/Vol] 1.3 mg/dL 0.55-1.02 [facility] Laboratory - Chemistry and C hemistry - challengeOrdered By: Denise Uribe on 12-20-2022 GFR/1.73 sq M.predicted among non-blacks MDRD (S/P/Bld) [Vol rate/Area] 44.0000 mL/min/{1.73_m2} >60 [facility] Laboratory - Hematology and Cell countson 11-17-2022 HbA1c (Bld) [Mass fraction] 8.5 % 4.2-6.3 [facility] No Panel Informationon 11-17 8.5 % 4.2-6.3 [facility] Absolute lymphocyte countOrd ered By: Dr. Brar on 09-15-2022 Lymphocytes Auto (Unsp spec) [#/Vol] 1.93 10*3/uL 0.83-4.51 [facility] Basophil percentageOrdered B y: Dr. Brar on 09-15-2022 Basophil percentage 0 SEEN /hpf 0-5 [facility] Basophil percentage 199 mg/dL 74-106 [facility] Basophil percentage 8.1 g/dL 6.4-8.2 [facility] Basophil percentage 0.40 mg/dL 0.20-1.00 [facility] Basophil percentage 134 mmol/L 136-145 [facility] Basophil percentage 3.6 mmol/L 3.5-5.1 [facility] Basophil percentage 105 mmol/L 98-107 [facility] Basophils (Bld) [#/Vol] 15.1 10*3/uL 4.4-11.0 [facility] Basophils (Bld) [#/Vol] 12.1 10*3/uL 2.0-7.7 [facility] Basophils/100 WBC (Bld) 80.4 % 47-70 [facility] Basophils/100 WBC (Bld) 0.3 % 0-1 [facility] Basophil percentageOrdered B y: Jozef Brar on 09-15-2022 Bilirubin [Mass/Vol] 0.40 mg/dL 0.20-1.00 [facility] Comment on above: For patients on eltr ombopag therapy, use of Dimension Nora TBIL is not recommended. Chloride [Moles/Vol] 105 mmol/L 98-107 [facility] Eosinophils/100 WBC (Bld) 0.3 % 0-5 [facility] Glucose [Mass/Vol] 199 mg/dL 74-106 [facility] Comment on above: Fasting Glucose resu lt greater than or equal to 126 mg/dL suggests DIABETES MELLITUS per A.D.A. criteria. Neutrophils (Bld) [#/Vol] 12.1 10*3/uL 2.0-7.7 [facility] Neutrophils/100 WBC (Bld) 80.4 % 47-70 [facility] Potassium [Moles/Vol] 3.6 mmol/L 3.5-5.1 [facility] Protein [Mass/Vol] 8.1 g/dL 6.4-8.2 [facility] Sodium [Moles/Vol] 134 mmol/L 136-145 [facility] WBC (Bld) [#/Vol] 15.1 10*3/uL 4.4-11.0 [facility] Bilirubin Test strip Ql (U)O rdered By: Dr. Brar on 09-15-2022 Bilirubin Ql (U) Negative Negative [facility] Blood erythrocytes count (nu mber/volume)Ordered By: Dr. Brar on 09-15-2022 RBC (Bld) [#/Vol] 3.81 10*6/uL 4.2-5.4 [facility] Blood hemoglobin measurement (mass/volume)Ordered By: Dr. Brar on 09-15-2022 Hemoglobin (Bld) [Mass/Vol] 11.6 g/dL 12.0-15.0 [facility] Blood lymphocytes/100 leukoc ytesOrdered By: Dr. Brar on 09-15-2022 Lymphocytes/100 WBC (Bld) 12.8 % 19-41 [facility] Blood monocytes/100 leukocyt esOrdered By: Dr. Brar on 09-15-2022 Monocytes/100 WBC (Bld) 5.7 % 0-10 [facility] Blood platelet mean volumeOr dered By: Dr. Brar on 09-15-2022 Platelet mean volume (Bld) [Entitic vol] 9.6 fL 6.2-12.0 [facility] Determination of erythrocyte mean corpuscular volume (MCV)Ordered By: Dr. Brar on 09-15-2022 MCV (RBC) [Entitic vol] 95.8 fL 81-99 [facility] Hematocrit Auto (Bld) [Volum e fraction]Ordered By: Dr. Brar on 09-15-2022 Hematocrit (Bld) [Volume fraction] 36.5 % 37-47 [facility] Ketones Test strip Ql (U)Ord ered By: Dr. Brar on 09-15-2022 Ketones Ql (U) 50 mg/dl Negative [facility] Laboratory - Chemistry and C hemistry - challengeOrdered By: Jozef Brar on 09-15-2022 ALP [Catalytic activity/Vol] 93 U/L 45-117 [facility] ALT [Catalytic activity/Vol] 20 U/L 13-56 [facility] CO2 [Moles/Vol] 18.0 mmol/L 21.0-32.0 [facility] Globulin (S) [Mass/Vol] 4.9 g/dL 2.2-4.2 [facility] Lipase [Catalytic activity/Vol] 56 U/L 13-75 [facility] Comment on above: Please note:LIPASE r evised reference range effective 22. New Lipase methodology. Expected to produce lower values than the previous assay method. NEW Reference Range: 13 - 75 U/L Urea nitrogen/Creatinine [Mass ratio] 25.2 mg/mg 10-20 [facility] Laboratory - Hematology and Cell countsOrdered By: Jozef Brar on 09-15-2022 Erythrocyte distribution width (RBC) [Entitic vol] 59.0 fL 35.1-43.9 [facility] Erythrocyte distribution width (RBC) [Ratio] 16.6 % 11.6-14.6 [facility] Immature granulocytes/100 WBC (Bld) 0.500 % 0.0-0.9 [facility] Comment on above: IG% - Immature Granu locytes (promyelocytes, myelocytes and metamyelocytes) > 1% indicates that a LEFT SHIFT is Present. MCH (RBC) [Entitic mass] 30.4 pg 27.0-32.0 [facility] Nucleated RBC/100 WBC (Bld) [Ratio] 0 % 0-5 [facility] MCHC Auto (RBC) [Mass/Vol]Or dered By: Dr. Brar on 09-15-2022 MCHC (RBC) [Mass/Vol] 31.8 g/dL 32-36 [facility] Mucus LM Ql (Urine sed)Order ed By: Dr. Brar on 09-15-2022 Mucus Ql (Urine sed) 0 SEEN /hpf [facility] Nitrite Test strip Ql (U)Ord ered By: Dr. Brar on 09-15-2022 Nitrite Ql (U) Negative Negative [facility] No Panel InformationOrdered By: Jozef Brar on 09-15-2022 Valproic Acid (Depakene) Level 12 ug/mL 50-100 [facility] Estimated Creatinine Clearance Calc 50.87 ml/min [facility] Estimated GFR (MDRD) Amer 66 mL/min >60 [facility] Comment on above: GFR Calc Estimated GFR (MDRD) Non-Af Amer 55 mL/min >60 [facility] Comment on above: Non- GFR Calc No Panel InformationOrdered By: Dr. Brar on 09-15-2022 12 ug/mL 50-100 [facility] 30.4 pg 27.0-32.0 [facility] 16.6 % 11.6-14.6 [facility] 59.0 fl 35.1-43.9 [facility] 0.500 % 0.0-0.9 [facility] 0 % 0-5 [facility] 55 mL/min >60 [facility] 66 mL/min >60 [facility] 50.87 ml/min [facility] 25.2 RATIO 10-20 [facility] 4.9 g/dL 2.2-4.2 [facility] 56 U/L 13-75 [facility] 93 U/L 45-117 [facility] 20 U/L 13-56 [facility] 18.0 mmol/L 21.0-32.0 [facility] Platelets bldOrdered By: Dr. Brar on 09-15-2022 Platelets (Bld) [#/Vol] 490 10*3/uL 150-450 [facility] Protein Test strip Ql (U)Ord ered By: Dr. Brar on 09-15-2022 Protein Ql (U) 100 mg/dl Negative [facility] Serum or plasma albumin jamey urement (mass/volume)Ordered By: Dr. Brar on 09-15-2022 Albumin [Mass/Vol] 3.2 g/dL 3.2-5.0 [facility] Serum or plasma albumin/glob ulin mass ratioOrdered By: Dr. Brar on 09-15-2022 Albumin/Globulin [Mass ratio] 0.7 {ratio} 0.9-2.4 [facility] Serum or plasma calcium jamey urement (mass/volume)Ordered By: Dr. Brar on 09-15-2022 Calcium [Mass/Vol] 9.0 mg/dL 8.5-10.1 [facility] Serum or plasma creatinine m easurement (mass/volume)Ordered By: Dr. Brar on 09-15-2022 Creatinine [Mass/Vol] 1.07 mg/dL 0.55-1.02 [facility] Comment on above: The validity of the calculated GFR & GFRAA in patients over 70 years has not been determined. Clinical correlation is essential. Serum or plasma urea nitroge n measurement (mass/volume)Ordered By: Dr. Brar on 09-15-2022 Urea nitrogen [Mass/Vol] 27 mg/dL 7-18 [facility] Squamous epithelial cells de tection in urine sediment by light microscopyOrdered By: Dr. Brar on 09-15-2022 Epithelial cells.squamous LM Ql (Urine sed) 0-5 SEEN /hpf 5-10 [facility] Thin prep Papanicolaou smear with manual screeningOrdered By: Dr. Brar on 09-15-2022 Thin prep Papanicolaou smear with manual screening 14 U/L 15-37 [facility] Thin prep Papanicolaou smear with manual screening 11 5-15 [facility] Urine blood detectionOrdered By: Dr. Brar on 09-15-2022 RBC Ql (U) 25 /ul Negative [facility] RBC Ql (U) 0 SEEN /hpf 0-5 [facility] Urine clarityOrdered By: Dr. Brar on 09-15-2022 Clarity (U) Clear Clear [facility] Urine color determinationOrd ered By: Dr. Brar on 09-15-2022 Color (U) Yellow Yellow [facility] Urine glucose detectionOrder ed By: Dr. Brar on 09-15-2022 Glucose Ql (U) 1000 mg/dl Normal [facility] Urine leukocyte esterase det ection by dipstickOrdered By: Dr. Brar on 09-15-2022 Leukocyte esterase Test strip Ql (U) Negative Negative [facility] Urine pHOrdered By: Dr. Ty jones on 09-15-2022 pH (U) 5.0 [pH] 5.0 - 8.0 [facility] Urine sediment bacteria coun t by microscopy (number/high power field)Ordered By: Dr. Brar on 09-15-2022 Bacteria LM.HPF (Urine sed) [#/Area] 0 /[HPF] None Seen [facility] Urine sediment yeast count b y microscopy (number/high powered field)Ordered By: Dr. Brar on 09-15-2022 Yeast LM.HPF (Urine sed) [#/Area] 2 /[HPF] None Seen [facility] Urine specific gravity measu rementOrdered By: Dr. Brar on 09-15-2022 Specific gravity (U) [Rel density] 1.020 1.002-1.03 0 [facility] Urobilinogen Auto test strip Ql (U)Ordered By: Dr. Brar on 09-15-2022 Urobilinogen Ql (U) Normal mg/dl Normal [facility] Absolute lymphocyte countOrd ered By: Devi Delgado on 08-17-2022 Lymphocytes Auto (Unsp spec) [#/Vol] 2.04 10*3/uL 0.83-4.51 [facility] Basophil percentageOrdered B y: Devi Delgado on 08-17-2022 Basophil percentage 3.5 mg/dL 2.5-4.9 [facility] Basophil percentage 222 mg/dL 74-106 [facility] Basophil percentage 7.6 g/dL 6.4-8.2 [facility] Basophil percentage 0.20 mg/dL 0.20-1.00 [facility] Basophil percentage 167 mg/dL <200 [facility] Basophil percentage 306 mg/dL <199 [facility] Basophil percentage 135 mmol/L 136-145 [facility] Basophil percentage 4.5 mmol/L 3.5-5.1 [facility] Basophil percentage 102 mmol/L 98-107 [facility] Basophils (Bld) [#/Vol] 10.3 10*3/uL 4.4-11.0 [facility] Basophils (Bld) [#/Vol] 7.0 10*3/uL 2.0-7.7 [facility] Basophils/100 WBC (Bld) 0.8 % 0-1 [facility] Basophils/100 WBC (Bld) 67.7 % 47-70 [facility] Basophils/100 WBC (Bld) 1.7 % 0-5 [facility] Bilirubin [Mass/Vol] 0.20 mg/dL 0.20-1.00 [facility] Comment on above: For patients on eltr ombopag therapy, use of Dimension Nora TBIL is not recommended. Chloride [Moles/Vol] 102 mmol/L 98-107 [facility] Cholesterol [Mass/Vol] 167 mg/dL <200 [facility] Comment on above: <200 mg/dL Desirable 200-240 mg/dL Borderline >240 mg/dL High Risk Eosinophils/100 WBC (Bld) 1.7 % 0-5 [facility] Glucose [Mass/Vol] 222 mg/dL 74-106 [facility] Comment on above: Glucose result great er than or equal to 200 mg/dLsuggests DIABETES MELLITUS per A.D.A. criteria. Neutrophils (Bld) [#/Vol] 7.0 10*3/uL 2.0-7.7 [facility] Neutrophils/100 WBC (Bld) 67.7 % 47-70 [facility] Potassium [Moles/Vol] 4.5 mmol/L 3.5-5.1 [facility] Protein [Mass/Vol] 7.6 g/dL 6.4-8.2 [facility] Sodium [Moles/Vol] 135 mmol/L 136-145 [facility] Triglyceride [Mass/Vol] 306 mg/dL <199 [facility] Comment on above: The drugs N-Acetylcy steine and Metamizole may falsely depress this assay.Serum Triglycerides Reference Interval Normal <150 mg/dL Borderline high 150 - 199 mg/dL High 200 - 499 mg/dL Very High > or = 500 mg/dL WBC (Bld) [#/Vol] 10.3 10*3/uL 4.4-11.0 [facility] Blood erythrocytes count (nu mber/volume)Ordered By: Devi Delgado on 08-17-2022 RBC (Bld) [#/Vol] 3.54 10*6/uL 4.2-5.4 [facility] Blood hemoglobin measurement (mass/volume)Ordered By: Devi Delgado on 08-17-2022 Hemoglobin (Bld) [Mass/Vol] 10.5 g/dL 12.0-15.0 [facility] Blood lymphocytes/100 leukoc ytesOrdered By: Devi Delgado on 08-17-2022 Lymphocytes/100 WBC (Bld) 19.8 % 19-41 [facility] Blood monocytes/100 leukocyt esOrdered By: Devi Delgado on 08-17-2022 Monocytes/100 WBC (Bld) 8.3 % 0-10 [facility] Blood platelet mean volumeOr dered By: Devi Delgado on 08-17-2022 Platelet mean volume (Bld) [Entitic vol] 9.2 fL 6.2-12.0 [facility] Determination of erythrocyte mean corpuscular volume (MCV)Ordered By: Devi Delgado on 08-17-2022 MCV (RBC) [Entitic vol] 96.6 fL 81-99 [facility] Direct bilirubinOrdered By: Devi Delgado on 08-17-2022 Bilirubin.direct [Mass/Vol] 0.10 mg/dL 0.00-0.30 [facility] Hematocrit Auto (Bld) [Volum e fraction]Ordered By: Devi Delgado on 08-17-2022 Hematocrit (Bld) [Volume fraction] 34.2 % 37-47 [facility] Laboratory - Chemistry and C hemistry - challengeOrdered By: Devi Delgado on 08-17-2022 ALP [Catalytic activity/Vol] 107 U/L 45-117 [facility] ALT [Catalytic activity/Vol] 30 U/L 13-56 [facility] CO2 [Moles/Vol] 21.0 mmol/L 21.0-32.0 [facility] Globulin (S) [Mass/Vol] 4.4 g/dL 2.2-4.2 [facility] Urea nitrogen/Creatinine [Mass ratio] 20.9 mg/mg 10-20 [facility] Laboratory - Hematology and Cell countsOrdered By: Devi Delgado on 08-17-2022 Erythrocyte distribution width (RBC) [Entitic vol] 58.4 fL 35.1-43.9 [facility] Erythrocyte distribution width (RBC) [Ratio] 16.6 % 11.6-14.6 [facility] Immature granulocytes/100 WBC (Bld) 1.700 % 0.0-0.9 [facility] Comment on above: IG% - Immature Granu locytes (promyelocytes, myelocytes and metamyelocytes) > 1% indicates that a LEFT SHIFT is Present. MCH (RBC) [Entitic mass] 29.7 pg 27.0-32.0 [facility] Nucleated RBC/100 WBC (Bld) [Ratio] 0 % 0-5 [facility] Laboratory - Hematology and Cell countson 08-17-2022 HbA1c (Bld) [Mass fraction] 7.7 % 4.2-6.3 [facility] MCHC Auto (RBC) [Mass/Vol]Or dered By: Devi Delgado on 08-17-2022 MCHC (RBC) [Mass/Vol] 30.7 g/dL 32-36 [facility] No Panel InformationOrdered By: Devi Delgado on 08-17-2022 Estimated GFR (MDRD) Amer 49 mL/min >60 [facility] Comment on above: GFR Calc Estimated GFR (MDRD) Non-Af Amer 40 mL/min >60 [facility] Comment on above: Non- GFR Calc 29.7 pg 27.0-32.0 [facility] 16.6 % 11.6-14.6 [facility] 58.4 fl 35.1-43.9 [facility] 1.700 % 0.0-0.9 [facility] 0 % 0-5 [facility] 40 mL/min >60 [facility] 49 mL/min >60 [facility] 20.9 RATIO 10-20 [facility] 4.4 g/dL 2.2-4.2 [facility] 107 U/L 45-117 [facility] 30 U/L 13-56 [facility] 21.0 mmol/L 21.0-32.0 [facility] No Panel Informationon 08-17 7.7 % 4.2-6.3 [facility] Platelets bldOrdered By: Nelida Delgado on 03-29-2023 Platelets (Bld) [#/Vol] 606 10*3/uL 150-450 [facility] Serum or plasma albumin jamey urement (mass/volume)Ordered By: Devi Delgado on 08-17-2022 Albumin [Mass/Vol] 3.2 g/dL 3.2-5.0 [facility] Serum or plasma albumin/glob ulin mass ratioOrdered By: Devi Delgado on 08-17-2022 Albumin/Globulin [Mass ratio] 0.7 {ratio} 0.9-2.4 [facility] Serum or plasma calcium jamey urement (mass/volume)Ordered By: Devi Delgado on 08-17-2022 Calcium [Mass/Vol] 8.8 mg/dL 8.5-10.1 [facility] Serum or plasma cholesterol in HDL measurement (mass/volume)Ordered By: Devi Delgado on 08-17-2022 Cholesterol in HDL [Mass/Vol] 41 mg/dL >40 [facility] Comment on above: The drugs N-Acetylcy steine and Metamizole may falsely depress this assay. Reference Range HDL <40 mg/dL Low HDL Cholesterol HDL >or= 60 mg/dL High HDL Cholesterol Serum or plasma cholesterol in VLDL measurement (mass/volume)Ordered By: Devi Delgado on 08-17-2022 Cholesterol in VLDL [Mass/Vol] 61 mg/dL 5-40 [facility] Serum or plasma creatinine m easurement (mass/volume)Ordered By: Devi Delgado on 08-17-2022 Creatinine [Mass/Vol] 1.39 mg/dL 0.55-1.02 [facility] Comment on above: The validity of the calculated GFR & GFRAA in patients over 70 years has not been determined. Clinical correlation is essential. Serum or plasma low density lipoprotein (LDL) cholesterol measurement (mass/volume)Ordered By: Devi Delgado on 08-17-2022 Cholesterol in LDL [Mass/Vol] 65 mg/dL 0-130 [facility] Serum or plasma urea nitroge n measurement (mass/volume)Ordered By: Devi Delgado on 08-17-2022 Urea nitrogen [Mass/Vol] 29 mg/dL 7-18 [facility] Thin prep Papanicolaou smear with manual screeningOrdered By: Devi Delgado on 08-17-2022 Thin prep Papanicolaou smear with manual screening 13 U/L 15-37 [facility] Thin prep Papanicolaou smear with manual screening 12 5-15 [facility] CBC AND DIFFERENTIALon 08-15 % AUTOMATED IMMATURE GRAN 4.0 % High 0.0 - 0.9 [facility] Comment on above: Result Comment: Minerva ture Granulocyte Count (IG) includes promyelocytes, myelocytes and metamyelocytes but does not include bands. Percent differential counts (%) should be interpreted in the context of the absolute cell counts (cells/L). Performed By: #### C BCDF #### [address] [address] Basophils (Bld) [#/Vol] 0.12 10*3/uL High 0.00 - 0.10 [facility] Comment on above: Performed By: #### C BCDF #### [address] [address] Basophils/100 WBC (Bld) 0.8 % Normal 0.0 - 2.0 [facility] Comment on above: Performed By: #### C BCDF #### [address] [address] Eosinophils (Bld) [#/Vol] 0.17 10*3/uL Normal 0.00 - 0.70 [facility] Comment on above: Performed By: #### C BCDF #### [address] [address] Eosinophils/100 WBC (Bld) 1.1 % Normal 0.0 - 6.0 [facility] Comment on above: Performed By: #### C BCDF #### [address] [address] Erythrocyte distribution width (RBC) [Ratio] 16.0 % High 11.5 - 14.5 [facility] Comment on above: Performed By: #### C BCDF #### [address] [address] Hematocrit (Bld) [Volume fraction] 35.8 % Low 36.0 - 46.0 [facility] Comment on above: Performed By: #### C BCDF #### [address] [address] Hemoglobin (Bld) [Mass/Vol] 11.5 g/dL Low 12.0 - 16.0 [facility] Comment on above: Performed By: #### C BCDF #### [address] [address] Lymphocytes (Bld) [#/Vol] 2.19 10*3/uL Normal 1.20 - 4.80 [facility] Comment on above: Performed By: #### C BCDF #### [address] [address] Lymphocytes/100 WBC (Bld) 14.8 % Normal 13.0 - 44.0 [facility] Comment on above: Performed By: #### C BCDF #### [address] [address] MCHC (RBC) [Mass/Vol] 32.1 g/dL Normal 32.0 - 36.0 [facility] Comment on above: Performed By: #### C BCDF #### [address] [address] MCV (RBC) [Entitic vol] 93 fL Normal 80 - 100 [facility] Comment on above: Performed By: #### C BCDF #### [address] [address] Monocytes (Bld) [#/Vol] 0.81 10*3/uL Normal 0.10 - 1.00 [facility] Comment on above: Performed By: #### C BCDF #### [address] [address] Monocytes/100 WBC (Bld) 5.5 % Normal 2.0 - 10.0 [facility] Comment on above: Performed By: #### C BCDF #### [address] [address] Neutrophils (Bld) [#/Vol] 10.96 10*3/uL High 1.20 - 7.70 [facility] Comment on above: Result Comment: Perc ent differential counts (%) should be interpreted in the context of the absolute cell counts (cells/L). Performed By: #### C BCDF #### [address] [address] Neutrophils/100 WBC (Bld) 73.8 % Normal 40.0 - 80.0 [facility] Comment on above: Performed By: #### C BCDF #### [address] [address] [address] Platelets (Bld) [#/Vol] 637 10*3/uL High 150 - 450 [facility] Comment on above: Performed By: #### C BCDF #### [address] [address] RBC 3.87 x10E12/L Low 4.00 - 5.20 [facility] Comment on above: Performed By: #### C BCDF #### [address] [address] WBC (Bld) [#/Vol] 14.8 10*3/uL High 4.4 - 11.3 [facility] Comment on above: Performed By: #### C BCDF #### [address] [address] CHEST 1 VIEWon 08-15-2022 CHEST 1 VIEW Patient Name: ASIF DELA CRUZ STUDY: CHEST 1 VIEW; 08/15/2022 12:50 pm INDICATION: weakness, n/v/d . COMPARISON: 10/24/2018 ACCESSION NUMBER(S): [id number] ORDERING CLINICIAN: YUDY BRIDGES FINDINGS: The lungs are clear without apparent pleural effusion. Unremarkable cardiomediastinal silhouette. Aortic atherosclerosis with slight tortuosity. No pulmonary vascular congestion. IMPRESSION: No active disease in the chest. Electronically signed by: ALESSANDRO DOMINGO MD Normal [facility] CLOST DIFF. TOXIN, PCRon CLOST.DIFF NAP 1 STRAIN (Presumptive) Canceled Normal Not Detected [facility] Comment on above: Order Comment: TEST CLOST DIFF. TOXIN, PCR WAS CANCELLED, 08/15/2022 18:51 nsr. Performed By: #### C DTPC #### [facility] [address] [place] [address] CLOST.DIFF.TOXIN,PCR Canceled Normal [facility] Comment on above: Order Comment: TEST [...] Performed By: #### C DTPC #### [facility] [address] [place] [id number] Lab Specimen Source Stool Normal [facility] Comment on above: Order Comment: TEST CLOST DIFF. TOXIN, PCR WAS CANCELLED, 08/15/2022 18:51 nsr. Performed By: #### C DTPC #### [facility] [address] [place] [id number] COMPREHENSIVE PANELon 2022 Albumin [Mass/Vol] 3.8 g/dL Normal 3.4 - 5.0 [facility] Comment on above: Performed By: #### U AMIC #### [address] [address] ALP [Catalytic activity/Vol] 116 U/L Normal 33 - 136 [facility] Comment on above: Performed By: #### U AMIC #### [address] [address] ALT [Catalytic activity/Vol] 20 U/L Normal 7 - 45 [facility] Comment on above: Result Comment: Milagros ents treated with Sulfasalazine may generate falsely decreased results for ALT. Performed By: #### U AMIC #### [address] [address] Anion gap [Moles/Vol] 15 mmol/L Normal 10 - 20 [facility] Comment on above: Performed By: #### U AMIC #### [address] [address] AST [Catalytic activity/Vol] 15 U/L Normal 9 - 39 [facility] Comment on above: Performed By: #### U AMIC #### [address] [address] Bilirubin [Mass/Vol] 0.5 mg/dL Normal 0.0 - 1.2 [facility] Comment on above: Performed By: #### U AMIC #### [address] [address] Calcium [Mass/Vol] 8.5 mg/dL Low 8.6 - 10.3 [facility] Comment on above: Performed By: #### U AMIC #### [address] [address] Chloride [Moles/Vol] 103 mmol/L Normal 98 - 107 [facility] Comment on above: Performed By: #### U AMIC #### [address] [address] Creatinine [Mass/Vol] 0.93 mg/dL Normal 0.50 - 1.05 [facility] Comment on above: Performed By: #### U AMIC #### [address] [address] GFR/1.73 sq M.predicted among non-blacks MDRD (S/P/Bld) [Vol rate/Area] 68 mL/min/{1.73_m2} Normal >90 [facility] Comment on above: Result Comment: CALC ULATIONS OF ESTIMATED GFR ARE PERFORMED USING THE 2020 CKD-EPI STUDY REFIT EQUATION WITHOUT THE RACE VARIABLE FOR THE IDMS-TRACEABLE CREATININE METHODS. https://jasn.asnjournals.org/content/early//ASN.13404 35375 Performed By: #### U AMIC #### [address] [address] Glucose [Mass/Vol] 131 mg/dL High 74 - 99 [facility] Comment on above: Performed By: #### U AMIC #### [address] [address] HCO3 (Bld) [Moles/Vol] 18 mmol/L Low 21 - 32 [facility] Comment on above: Performed By: #### U AMIC #### [address] [address] Potassium [Moles/Vol] 4.5 mmol/L Normal 3.5 - 5.3 [facility] Comment on above: Performed By: #### U AMIC #### [address] [address] Protein [Mass/Vol] 7.5 g/dL Normal 6.4 - 8.2 [facility] Comment on above: Performed By: #### U AMIC #### [address] [address] Sodium [Moles/Vol] 131 mmol/L Low 136 - 145 [facility] Comment on above: Performed By: #### U AMIC #### [address] [address] Urea nitrogen [Mass/Vol] 19 mg/dL Normal 6 - 23 [facility] Comment on above: Performed By: #### U AMIC #### [address] [address] [address] ABDOMEN AND PELVIS W IV C ONTRASTon 08-15-2022 CT ABDOMEN AND PELVIS W IV CONTRAST Patient Name: ASIF DELA CRUZ STUDY: CT ABDOMEN AND PELVIS W IV CONTRAST; 08/15/2022 3:17 pm INDICATION: 67 y/o F with diffuse abd pain, recent pancreatitis . LIMITATIONS: None. ACCESSION NUMBER(S): [id number] ORDERING CLINICIAN: YUDY RBIDGES TECHNIQUE: After the administration of oral water [...] Moderate to advanced disc space loss with hhpo-xn-nnzvzyln endplate osteophytosis at L5-S1, unchanged. Mild bilateral [...] described. Electronically signed by: SANDY GALLAGHER MD [facility] Complete Blood Count + Diffe luis manueltialon 08-15-2022 Basophils/100 WBC (Bld) 0.8 % 0.0 - 2.0 [facility] Work Phone: Erythrocyte distribution width (RBC) [Ratio] 16.0 % above high threshold See Below [facility] Work Phone: Comment on above: Reference Range: 11. 5 - 14.5 Hematocrit (Bld) [Volume fraction] 35.8 % below low threshold See Below [facility] Work Phone: Comment on above: Reference Range: 36. 0 - 46.0 Hemoglobin (Bld) [Mass/Vol] 11.5 g/dL below low threshold See Below [facility] Work Phone: Comment on above: Reference Range: 12. 0 - 16.0 Lymphocytes/100 WBC (Bld) 14.8 % See Below [facility] Work Phone: Comment on above: Reference Range: 13. 0 - 44.0 MCHC (RBC) [Mass/Vol] 32.1 g/dL See Below [facility] Work Phone: Comment on above: Reference Range: 32. 0 - 36.0 MCV (RBC) [Entitic vol] 93 fL 80 - 100 [facility] Work Phone: Monocytes/100 WBC (Bld) 5.5 % 2.0 - 10.0 [facility] Work Phone: Neutrophils/100 WBC (Bld) 73.8 % See Below [facility] Work Phone: Comment on above: Reference Range: 40. 0 - 80.0 Platelets (Bld) [#/Vol] 637 10*3/uL above high threshold 150 - 450 [facility] Work Phone: RBC (Bld) [#/Vol] 3.87 {x10E12/L} below low threshold See Below [facility] Work Phone: Comment on above: Reference Range: 4.0 0 - 5.20 WBC (Bld) [#/Vol] 14.8 10*3/uL above high threshold 4.4 - 11.3 [facility] Work Phone: Complete Blood Count + Differential 0.12 {x10E9/L} above high threshold See Below [facility] Work Phone: Comment on above: Reference Range: 0.0 0 - 0.10 Complete Blood Count + Differential 0.17 {x10E9/L} See Below [facility] Work Phone: Comment on above: Reference Range: 0.0 0 - 0.70 Complete Blood Count + Differential 0.81 {x10E9/L} See Below [facility] Work Phone: Comment on above: Reference Range: 0.1 0 - 1.00 Complete Blood Count + Differential 2.19 {x10E9/L} See Below [facility] Work Phone: Comment on above: Reference Range: 1.2 0 - 4.80 Complete Blood Count + Differential 10.96 {x10E9/L} above high threshold See Below [facility] Work Phone: Comment on above: Reference Range: 1.2 0 - 7.70 Percent differential counts (%) should be interpreted in the context of the absolute cell counts (cells/L). Complete Blood Count + Differential 1.1 % 0.0 - 6.0 [facility] Work Phone: Complete Blood Count + Differential 4.0 % above high threshold 0.0 - 0.9 [facility] Work Phone: Comment on above: Immature [...] You may also be contacted by the [facility] to see if any of your close [...] or Naproxen (Aleve) can also be used. Agpm-ehv-byjkxob cough and cold medicines can be used according to the instructions on the package. Some fivy-esc-mmwrlxv medicines also contain acetaminophen. Make sure you [...] water are not available, use alcohol-based hand addiction social worker. Avoid touching your eyes, nose, and mouth [...] 24 kalpesh (more content not included)... Normal [facility] INFLUENZA A/B, COVID 2019 PC R,SYMPTOMATICon 08-15-2022 INFLUENZA A, PCR Not detected Normal Not Detected [facility] Comment on above: Result Comment: Resp iratory virus testing is performed routinely by PCR for Influenza A/B and RSV. Not Detected results do not preclude Influenza A/B or RSV infections since the adequacy of sample collection or low viral burden may impact the clinical sensitivity of this test method. Performed By: #### C OINP #### [place] [address] INFLUENZA B, PCR Not detected Normal Not Detected [facility] Comment on above: Result Comment: Resp iratory virus testing is performed routinely by PCR for Influenza A/B and RSV. Not Detected results do not preclude Influenza A/B or RSV infections since the adequacy of sample collection or low viral burden may impact the clinical sensitivity of this test method. Performed By: #### C OINP #### [place] [address] SARS-CoV-2 (COVID-19) RNA JUAN+probe Ql (Unsp spec) Not detected Normal Not Detected [facility] Comment on above: Result Comment: . This test has received FDA Emergency Use Authorization (EUA) and has been verified by [facility]. This test is only authorized for the duration of time that circumstances exist to justify the authorization of the emergency use of in vitro diagnostic tests for the detection of SARS-CoV-2 virus and/or diagnosis of COVID-19 infection under section 564(b)(1) of the Act, 21 U.S.C. 360bbb-3(b)(1), unless the authorization is terminated or revoked sooner. [facility] is certified under CLIA-88 as qualified to perform high complexity testing. Testing is performed in the [facility] laboratory located at [address] [place] [address]. SARS-CoV-2/Flu/RSV Multiplex Test: Fact sheet for providers: https://www.fda.gov/media/312172/download Fact sheet for patients: https://www.fda.gov/media/109881/download Performed By: #### C OINP #### [place] [address] Lab Specimen Source Nasal, Nasopharyngeal Normal [facility] Comment on above: Performed By: #### C OINP #### [place] [address] INFLUENZA A/B, COVID 2019 PCR,SYMPTOMATIC Not detected See Below [facility] Work Phone: Comment on above: Reference Range: Not Detected.This test has received [facility] Emergency Use Authorization (EUA) and has been verified by [facility]. This test is only authorized for the duration of time that circumstances exist to justify the authorization of the emergency use of in vitro diagnostic tests for the detection of SARS-CoV-2 virus and/or diagnosis of COVID-19 infection under section 564(b)(1) of the Act, 21 U.S.C. 360bbb-3(b)(1), unless the authorization is terminated or revoked sooner. [facility] is certified under CLIA-88 as qualified to perform high complexity testing. Testing is performed in the [facility] laboratory located at [address] [place] [address].SARS-CoV-2/Flu/RSV Multiplex Test: Fact sheet for providers: https://www.fda.gov/media/139836/downloadFact sheet for patients: https://www.fda.gov/media/217078/download Reference Range: Not Detected Respiratory virus testing [...] [Moles/Vol] 0.7 mmol/L Normal 0.4 - 2.0 [facility] Comment on above: Result Comment: Ana puncture immediately after or during the administration of Metamizole may lead to falsely low results. Testing should be performed immediately prior to Metamizole dosing. Performed By: #### L ACT #### [address] [address] LIPASEon 08-15-2022 Lipase [Catalytic activity/Vol] 40 U/L Normal 9 - 82 [facility] Comment on above: Result Comment: Ana puncture immediately after or during the administration of Metamizole may lead to falsely low results. Testing should be performed immediately prior to Metamizole dosing. C-wzerug-j-benzoquinone imine (metabolite of Acetaminophen) will generate erroneously low results in samples for patients that have taken toxic doses of acetaminophen. Performed By: #### L IPAS #### [address] [address] Laboratory - Chemistry and C hemistry - challengeon 08-15-2022 Albumin BCP dye [Mass/Vol] 3.8 g/dL 3.4 - 5.0 [facility] Work Phone: ALP [Catalytic activity/Vol] 116 U/L 33 - 136 [facility] Work Phone: ALT With P-5'-P [Catalytic activity/Vol] 20 U/L 7 - 45 [facility] Work Phone: Comment on above: Patients treated wit h Sulfasalazine may generate falsely decreased results for ALT. Anion gap [Moles/Vol] 15 mmol/L 10 - 20 [facility] Work Phone: AST With P-5'-P [Catalytic activity/Vol] 15 U/L 9 - 39 [facility] Work Phone: Bilirubin [Mass/Vol] 0.5 mg/dL 0.0 - 1.2 [facility] Work Phone: Calcium [Mass/Vol] 8.5 mg/dL below low threshold 8.6 - 10.3 [facility] Work Phone: Chloride [Moles/Vol] 103 mmol/L 98 - 107 [facility] Work Phone: CO2 [Moles/Vol] 18 mmol/L below low threshold 21 - 32 [facility] Work Phone: Creatinine [Mass/Vol] 0.93 mg/dL See Below [facility] Work Phone: Comment on above: Reference Range: 0.5 0 - 1.05 Glucose [Mass/Vol] 131 mg/dL above high threshold 74 - 99 [facility] Work Phone: Potassium [Moles/Vol] 4.5 mmol/L 3.5 - 5.3 [facility] Work Phone: Protein [Mass/Vol] 7.5 g/dL 6.4 - 8.2 [facility] Work Phone: Sodium [Moles/Vol] 131 mmol/L below low threshold 136 - 145 [facility] Work Phone: Urea nitrogen [Mass/Vol] 19 mg/dL 6 - 23 [facility] Work Phone: Lactate, Levelon 08-15-2022 Lactate [Moles/Vol] 0.7 mmol/L 0.4 - 2.0 [facility] Work Phone: Comment on above: Venipuncture immedia tely after or during the administration of Metamizole may lead to falsely low results. Testing should be performed immediately prior to Metamizole dosing. Lipase, Serumon 08-15-2022 Lipase [Catalytic activity/Vol] 40 U/L 9 - 82 [facility] Work Phone: Comment on above: Venipuncture immedia tely after or during the administration of Metamizole may lead to falsely low results. Testing should be performed immediately prior to Metamizole dosing. U-uqiwed-o-benzoquinone imine (metabolite of Acetaminophen) will generate erroneously low results in samples for patients that have taken toxic doses of acetaminophen. No Panel Informationon 08-15 68 {mL/min/1.73m2} >90 [facility] Work Phone: Comment on above: CALCULATIONS OF PEYMAN MATED GFR ARE PERFORMED USING THE 2020 CKD-EPI STUDY REFIT EQUATION WITHOUT THE RACE VARIABLE FOR THE IDMS-TRACEABLE CREATININE METHODS.https://jasn.asnjournals.org/content/early/A SN.7615113859 Provider Note - ED v3on 07-21 Provider Note - ED v3 Provider Note: Chart Review: HISTORY OF PRESENTING ILLNESS ASIF is a 67 year old Female and was seen by me at 15-Aug-2022 12:34 for a chief complaint of weakness ([facility] transported Pt c/o N/V, diarrhea, weakness and general not feeling well. Pt was at [place] ED 1.5 weeks ago with same and Ileus. Spent 4 night in hospital. states she was starting to feel better but N/V and weakness came back a few days ago. COVID And Flu test was negative at [place]. Denies Abdominal pain, CP or SOB. 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 Triage Information: Most recent Vital Sign Value [...] Reaction: Itching Hives/Urticaria HEALTH HISTORY: Medical History Name:ID (myocardial infarction) Code:I21.9 Name:Diabetes Code:E11.9 Name:Depression Code:F32.A [...] Past Medical History Description:Anxiety/Depress ion Description:DM- Insulin Description:ID Description:HTN Description:Hyperlipidemia Description:Fibromyalgia Description:Gout Past Surgical History Description:Stents x3- [place] Description:Hysterectomy CRITICAL CARE RESULTS: Recent Lab Results: I have reviewed these laboratory results: Troponin I, High Sensitivity Trending View [id number] 15:55:00 15-Aug-2022 14:01:00 Troponin I, High [id number] 9 Complete Blood Count + Differential 15-Aug-2022 [...] Reference Range: STRAW,YELLOW Appearance, Urine CLEAR Specific [place], Urine 1.012 pH, Urine 5.0 Protein, Urine 100(2+) A Glucose, Urine NEGA (more content not included)... Normal [facility] Radiologyon 08-15-2022 XR Chest Single view Normal [facility] Work Phone: STOOL PATHOGEN PCR PANELon 0 08-15-2022 CAMPYLOBACTER GP. Canceled [facility] Comment on above: Order Comment: TEST STOOL PATHOGEN PCR PANEL WAS CANCELLED, 08/15/2022 18:51 nsr. Performed By: #### S TLPP #### [facility] [address] [place] [address] NOROVIRUS GI/GII Canceled [facility] Comment on above: Order Comment: TEST STOOL PATHOGEN PCR PANEL WAS CANCELLED, 08/15/2022 18:51 nsr. Performed By: #### S TLPP #### [facility] [address] [place] [address] ROTAVIRUS A Canceled [facility] Comment on above: Order Comment: TEST [...] panel. Performed By: #### S TLPP #### [facility] [address] [place] [id number] SALMONELLA SP. Canceled [facility] Comment on above: Order Comment: TEST STOOL PATHOGEN PCR PANEL WAS CANCELLED, 08/15/2022 18:51 nsr. Performed By: #### S TLPP #### [facility] [address] [place] [id number] SHIGA TOXIN 1 Canceled [facility] Comment on above: Order Comment: TEST STOOL PATHOGEN PCR PANEL WAS CANCELLED, 08/15/2022 18:51 nsr. Performed By: #### S TLPP #### [facility] [address] [place] [address] SHIGA TOXIN 2 Canceled [facility] Comment on above: Order Comment: TEST STOOL PATHOGEN PCR PANEL WAS CANCELLED, 08/15/2022 18:51 nsr. Performed By: #### S TLPP #### [facility] [address] [place] [address] SHIGELLA SP. Canceled [facility] Comment on above: Order Comment: TEST STOOL PATHOGEN PCR PANEL WAS CANCELLED, 08/15/2022 18:51 nsr. Performed By: #### S TLPP #### [facility] [address] [place] [id number] [employer] Canceled [facility] Comment on above: Order Comment: TEST STOOL PATHOGEN PCR PANEL WAS CANCELLED, 08/15/2022 18:51 nsr. Performed By: #### S TLPP #### [facility] [address] [place] [address] YERSINIA ENTEROCOLITICA Canceled Normal [facility] Comment on above: Order Comment: TEST STOOL PATHOGEN PCR PANEL WAS CANCELLED, 08/15/2022 18:51 nsr. Performed By: #### S TLPP #### [facility] [address] [place] [address] [address] Normal [facility] Comment on above: Order Comment: TEST STOOL PATHOGEN PCR PANEL WAS CANCELLED, 08/15/2022 18:51 nsr. Performed By: #### S TLPP #### [facility] [address] [place] [address] TROPONIN I, HIGH SENSITIVITY on 08-15-2022 TROPONIN I, HIGH SENSITIVITY 10 ng/L Normal 0 - 13 [facility] Comment on above: Result Comment: . [...] performed using a different testing methodology at [facility] than at other [facility]. Direct result comparisons should only be made within the same method. Performed By: #### U [facility] #### [place] [address] [place] [address] TROPONIN I, HIGH SENSITIVITY 9 ng/L Normal 0 - 13 [facility] Comment on above: Result Comment: . [...] performed using a different testing methodology at [facility] than at other [facility]. Direct result comparisons should only be made within the same method. Performed By: #### T [facility] #### [place] [address] Tropinin I.cardiac panel High sensitivity method 9 ng/L 0 - 13 [facility] Work Phone: Comment on above: .Less [...] performed using a different testing methodology at [facility] than at [facility]. Direct result comparisons should only be made within the same method. UA MICROSCOPICon 08-15-2022 RBC 3 /HPF Normal 0-5 [facility] Comment on above: Performed By: #### U AMIC #### [address] [address] SQUAMOUS EPITH. CELLS 3 /HPF Normal [facility] Comment on above: Performed By: #### U AMIC #### [address] [address] WBC (U) [#/Vol] /uL Normal 0-5 [facility] Comment on above: Performed By: #### U AMIC #### [address] [address] URINALYSIS WITH CULTURE IF I NDICATEDon 08-15-2022 Appearance (U) CLEAR Normal CLEAR [facility] Comment on above: Performed By: #### U ARFX #### [address] [address] Bilirubin Ql (U) Negative Normal NEGATIVE [facility] Comment on above: Performed By: #### U ARFX #### [place] [address] Color (U) Straw Normal STRAW,YELL OW [facility] Comment on above: Performed By: #### U ARFX #### [address] [address] Glucose Ql (U) Negative Normal NEGATIVE [facility] Comment on above: Performed By: #### U ARFX #### [place] [address] Hemoglobin Ql (U) MODERATE(2+) Abnormal NEGATIVE [facility] Comment on above: Performed By: #### U ARFX #### [place] [address] Ketones Ql (U) Negative Normal NEGATIVE [facility] Comment on above: Performed By: #### U ARFX #### [address] [address] Leukocyte esterase Test strip Ql (U) Negative Normal NEGATIVE [facility] Comment on above: Performed By: #### U ARFX #### [address] [address] Nitrite Ql (U) Negative Normal NEGATIVE [facility] Comment on above: Performed By: #### U ARFX #### [place] [id number] pH (U) 5.0 [pH] Normal 5.0 - 8.0 [facility] Comment on above: Performed By: #### U ARFX #### [place] [address] Protein Ql (U) 100(2+) Abnormal NEGATIVE [facility] Comment on above: Performed By: #### U ARFX #### [address] [address] Specific gravity (U) [Rel density] 1.012 Normal 1.005 - 1.035 [facility] Comment on above: Performed By: #### U ARFX #### [address] [address] Urobilinogen (U) [Mass/Vol] mg/dL Normal 0.0 - 1.9 [facility] Comment on above: Performed By: #### U ARFX #### [address] [address] Color (U) Straw See Below [facility] Work Phone: [phone] Comment on above: Reference Range: STR AW,YELLOW Glucose Ql (U) Negative NEGATIVE [facility] Work Phone: [phone] Ketones Ql (U) Negative NEGATIVE [facility] Work Phone: [phone] Leukocyte esterase Test strip Ql (U) Negative NEGATIVE [facility] Work Phone: [phone] pH (U) 5.0 [pH] 5.0 - 8.0 [facility] Work Phone: [phone] Protein (U) [Mass/Vol] 100(2+) [facility] Work [facility]: [phone] RBC (U) [#/Vol] MODERATE(2+) Abnormal NEGATIVE [facility] Work Phone: [phone] Specific gravity (U) [Rel density] 1.012 1 See Below [facility] Work Phone: [phone] Comment on above: Reference Range: 1.0 05 - 1.035 URINALYSIS WITH CULTURE IF INDICATED Negative NEGATIVE [facility] Work Phone: [phone] URINALYSIS WITH CULTURE IF INDICATED <2.0 0.0 - 1.9 [facility] Work Phone: [phone] URINALYSIS WITH CULTURE IF INDICATED CLEAR CLEAR [facility] Work Phone: [phone] Urinalysis, Microscopicon Urinalysis, Microscopic 3 {/HPF} 0-5 [facility] Work Phone: Urinalysis, Microscopic <1 0-5 [facility] Work Phone: Absolute lymphocyte countOrd ered By: Dr. Buckley on 08-08-2022 Lymphocytes Auto (Unsp spec) [#/Vol] 0.80 10*3/uL 0.83-4.51 [facility] Basophil percentageOrdered B y: Dr. Buckley on 08-08-2022 Basophil percentage 112 mg/dL 74-106 [facility] Basophil percentage 135 mmol/L 136-145 [facility] Basophil percentage 3.3 mmol/L 3.5-5.1 [facility] [facility] Basophil percentage 102 mmol/L 98-107 [facility] Basophils (Bld) [#/Vol] 10.4 10*3/uL 4.4-11.0 [facility] Basophils (Bld) [#/Vol] 8.7 10*3/uL 2.0-7.7 [facility] Basophils/100 WBC (Bld) 0.3 % 0-1 [facility] Basophils/100 WBC (Bld) 83.5 % 47-70 [facility] Chloride [Moles/Vol] 102 mmol/L 98-107 [facility] Eosinophils/100 WBC (Bld) 0.3 % 0-5 [facility] Glucose [Mass/Vol] 112 mg/dL 74-106 [facility] Comment on above: Fasting Glucose resu lt from 100 to 125 mg/dL suggests IMPAIRED HOMEOSTASIS per A.D.A. criteria. Neutrophils (Bld) [#/Vol] 8.7 10*3/uL 2.0-7.7 [facility] Neutrophils/100 WBC (Bld) 83.5 % 47-70 [facility] Potassium [Moles/Vol] 3.3 mmol/L 3.5-5.1 [facility] Sodium [Moles/Vol] 135 mmol/L 136-145 [facility] WBC (Bld) [#/Vol] 10.4 10*3/uL 4.4-11.0 [facility] Blood erythrocytes count (nu mber/volume)Ordered By: Dr. Buckley on 08-08-2022 RBC (Bld) [#/Vol] 2.75 10*6/uL 4.2-5.4 [facility] Blood hemoglobin measurement (mass/volume)Ordered By: Dr. Buckley on 08-08-2022 Hemoglobin (Bld) [Mass/Vol] 8.2 g/dL 12.0-15.0 [facility] Blood lymphocytes/100 leukoc ytesOrdered By: Dr. Buckley on 08-08-2022 Lymphocytes/100 WBC (Bld) 7.7 % 19-41 [facility] Blood monocytes/100 leukocyt esOrdered By: Dr. Buckley on 08-08-2022 Monocytes/100 WBC (Bld) 7.2 % 0-10 [facility] Blood platelet mean volumeOr dered By: Dr. Buckley on 08-08-2022 Platelet mean volume (Bld) [Entitic vol] 9.4 fL 6.2-12.0 [facility] Determination of erythrocyte mean corpuscular volume (MCV)Ordered By: Dr. Buckley on 08-08-2022 MCV (RBC) [Entitic vol] 92.0 fL 81-99 [facility] Hematocrit Auto (Bld) [Volum e fraction]Ordered By: Dr. Buckley on 08-08-2022 Hematocrit (Bld) [Volume fraction] 25.3 % 37-47 [facility] Laboratory - Chemistry and C hemistry - challengeOrdered By: Dr. Buckley on 08-08-2022 CO2 [Moles/Vol] 26.0 mmol/L 21.0-32.0 [facility] Magnesium [Mass/Vol] 2.0 mg/dL 1.6-2.6 [facility] Urea nitrogen/Creatinine [Mass ratio] 11.9 mg/mg 10-20 [facility] - Hematology and Cell countsOrdered By: Dr. Buckley on 08-08-2022 Erythrocyte distribution width (RBC) [Entitic vol] 53.2 fL 35.1-43.9 [facility] Erythrocyte distribution width (RBC) [Ratio] 15.9 % 11.6-14.6 [facility] Immature granulocytes/100 WBC (Bld) 1.000 % 0.0-0.9 [facility] Comment on above: IG% - Immature Granu locytes (promyelocytes, myelocytes and metamyelocytes) > 1% indicates that a LEFT SHIFT is Present. MCH (RBC) [Entitic mass] 29.8 pg 27.0-32.0 [facility] Nucleated RBC/100 WBC (Bld) [Ratio] 0 % 0-5 [facility] MCHC Auto (RBC) [Mass/Vol]Or dered By: Dr. Buckley on 08-08-2022 MCHC (RBC) [Mass/Vol] 32.4 g/dL 32-36 [facility] No Panel InformationOrdered By: Dr. Buckley on 08-08-2022 Estimated Creatinine Clearance Calc 49.29 ml/min [facility] Estimated GFR (MDRD) Amer 65 mL/min >60 [facility] Comment on above: GFR Calc Estimated GFR (MDRD) Non-Af Amer 53 mL/min >60 [facility] Comment on above: Non- GFR Calc 29.8 pg 27.0-32.0 [facility] 15.9 % 11.6-14.6 [facility] 53.2 fl 35.1-43.9 [facility] 1.000 % 0.0-0.9 [facility] 0 % 0-5 [facility] 53 mL/min >60 [facility] 65 mL/min >60 [facility] 49.29 ml/min [facility] 11.9 RATIO 10-20 [facility] 2.0 mg/dL 1.6-2.6 [facility] 26.0 mmol/L 21.0-32.0 [facility] Platelets bldOrdered By: Dr. Buckley on 08-08-2022 Platelets (Bld) [#/Vol] 296 10*3/uL 150-450 [facility] Serum or plasma calcium jamey urement (mass/volume)Ordered By: Dr. Buckley on 08-08-2022 Calcium [Mass/Vol] 7.9 mg/dL 8.5-10.1 [facility] Serum or plasma creatinine m easurement (mass/volume)Ordered By: Dr. Buckley on 08-08-2022 Creatinine [Mass/Vol] 1.09 mg/dL 0.55-1.02 [facility] Comment on above: The validity of the calculated GFR & GFRAA in patients over 70 years has not been determined. Clinical correlation is essential. Serum or plasma urea nitroge n measurement (mass/volume)Ordered By: Dr. Buckley on 08-08-2022 Urea nitrogen [Mass/Vol] 13 mg/dL 7-18 [facility] Thin prep Papanicolaou smear with manual screeningOrdered By: Dr. Buckley on 08-08-2022 Thin prep Papanicolaou smear with manual screening 7 5-15 [facility] Basophil percentageOrdered B y: Dr. Buckley on 08-07-2022 Basophil percentage 5.8 g/dL 6.4-8.2 [facility] Basophil percentage 0.30 mg/dL 0.20-1.00 [facility] Bilirubin [Mass/Vol] 0.30 mg/dL 0.20-1.00 [facility] Comment on above: For patients on eltr ombopag therapy, use of Dimension Nora TBIL is not recommended. Protein [Mass/Vol] 5.8 g/dL 6.4-8.2 [facility] Iron measurement (mass/mass) Ordered By: Dr. Buckley on 08-07-2022 Iron (Unsp spec) [Mass/Mass] 14 ug/dL 50-170 [facility] - Chemistry and C hemistry - challengeOrdered By: Dr. Buckley on 08-07-2022 Cobalamin (Vitamin B12) [Mass/Vol] 330 pg/mL 211-911 [facility] ALP [Catalytic activity/Vol] 68 U/L 45-117 [facility] ALT [Catalytic activity/Vol] 14 U/L 13-56 [facility] Globulin (S) [Mass/Vol] 3.3 g/dL 2.2-4.2 [facility] No Panel InformationOrdered By: Dr. Buckley on 08-07-2022 Vitamin D 25-Hydroxy 16.8 ng/mL [facility] Comment on above: Vitamin D 25(OH) Sta tus Range Deficiency <20 ng/mL (50nmol/L) Insufficiency 20 - 30 ng/mL (50 - 75 nmol/L) Sufficiency 30 - 100 ng/mL (75 - 250 nmol/L) Toxicity >100 ng/mL (>250 nmol/L) 330 pg/mL 211-911 [facility] 16.8 ng/mL [facility] Thyroid Stimulating Hormone (TSH) 1.54 uIU/mL 0.358-3.74 [facility] Total Iron Binding Capacity 276 ug/dL 250-450 [facility] 3.3 g/dL 2.2-4.2 [facility] 68 U/L 45-117 [facility] 14 U/L 13-56 [facility] 1.54 uIU/mL 0.358-3.74 [facility] 276 ug/dL 250-450 [facility] Serum or plasma albumin jamey urement (mass/volume)Ordered By: Dr. Buckley on 08-07-2022 Albumin [Mass/Vol] 2.5 g/dL 3.2-5.0 [facility] Serum or plasma albumin/glob ulin mass ratioOrdered By: Dr. Buckley on 08-07-2022 Albumin/Globulin [Mass ratio] 0.8 {ratio} 0.9-2.4 [facility] Serum or plasma ferritin joshua surement (mass/volume)Ordered By: Dr. Buckley on 08-07-2022 Ferritin [Mass/Vol] 63 ng/mL 8-252 [facility] Serum or plasma iron saturat ion measurement (mass fraction)Ordered By: Dr. Buckley on 08-07-2022 Iron saturation [Mass fraction] 5.1 % 15.0-55.0 [facility] Thin prep Papanicolaou smear with manual screeningOrdered By: Dr. Buckley on 08-07-2022 Thin prep Papanicolaou smear with manual screening 14 U/L 15-37 [facility] Clostridium difficile detect ion by polymerase chain reactionOrdered By: Dr. Mg on 08-06-2022 C. difficile DNA JUAN+probe Ql (Unsp spec) [facility] EP PanelOrdered By: Dr. Vikki agee on 08-06-2022 Gastrointestinal pathogens panel JUAN+probe (Stl) [facility] Basophil percentageOrdered B y: Dr. Mg on 08-05-2022 Basophil percentage 173 mg/dL <200 [facility] Basophil percentage 320 mg/dL <199 [facility] Cholesterol [Mass/Vol] 173 mg/dL <200 [facility] Comment on above: <200 mg/dL Desirable 200-240 mg/dL Borderline >240 mg/dL High Risk Triglyceride [Mass/Vol] 320 mg/dL <199 [facility] Comment on above: The drugs N-Acetylcy steine and Metamizole may falsely depress this assay.Serum Triglycerides Reference Interval Normal <150 mg/dL Borderline high 150 - 199 mg/dL High 200 - 499 mg/dL Very High > or = 500 mg/dL Laboratory - Chemistry and C hemistry - challengeOrdered By: Dr. Alva on 08-05-2022 Lipase [Catalytic activity/Vol] 428 U/L 73-393 [facility] No Panel InformationOrdered By: Dr. Alva on 08-05-2022 428 U/L 73-393 [facility] Serum or plasma cholesterol in HDL measurement (mass/volume)Ordered By: Dr. Mg on 08-05-2022 Cholesterol in HDL [Mass/Vol] 46 mg/dL >40 [facility] Comment on above: The drugs N-Acetylcy steine and Metamizole may falsely depress this assay. Reference Range HDL <40 mg/dL Low HDL Cholesterol HDL >or= 60 mg/dL High HDL Cholesterol Serum or plasma cholesterol in VLDL measurement (mass/volume)Ordered By: Dr. Mg on 08-05-2022 Cholesterol in VLDL [Mass/Vol] 64 mg/dL 5-40 [facility] Serum or plasma low density lipoprotein (LDL) cholesterol measurement (mass/volume)Ordered By: Dr. Mg on 08-05-2022 Cholesterol in LDL [Mass/Vol] 63 mg/dL 0-130 [facility] Absolute lymphocyte countOrd ered By: Dr. Hernandez on 08-04-2022 Lymphocytes Auto (Unsp spec) [#/Vol] 1.51 10*3/uL 0.83-4.51 [facility] Basophil percentageOrdered B y: Dr. Hernandez on 08-04-2022 Basophils/100 WBC (Bld) 0.6 % 0-1 [facility] Bilirubin [Mass/Vol] 0.60 mg/dL 0.20-1.00 [facility] Comment on above: For patients on eltr ombopag therapy, use of Dimension Nora TBIL is not recommended. Chloride [Moles/Vol] 99 mmol/L 98-107 [facility] Eosinophils/100 WBC (Bld) 0.5 % 0-5 [facility] Glucose [Mass/Vol] 255 mg/dL 74-106 [facility] Comment on above: Glucose result great er than or equal to 200 mg/dLsuggests DIABETES MELLITUS per A.D.A. criteria. Neutrophils (Bld) [#/Vol] 11.8 10*3/uL 2.0-7.7 [facility] Neutrophils/100 WBC (Bld) 82.0 % 47-70 [facility] Potassium [Moles/Vol] 5.3 mmol/L 3.5-5.1 [facility] Protein [Mass/Vol] 8.1 g/dL 6.4-8.2 [facility] Sodium [Moles/Vol] 131 mmol/L 136-145 [facility] WBC (Bld) [#/Vol] 14.3 10*3/uL 4.4-11.0 [facility] Blood erythrocytes count (nu mber/volume)Ordered By: Dr. Hernandez on 08-04-2022 RBC (Bld) [#/Vol] 4.04 10*6/uL 4.2-5.4 [facility] Blood hemoglobin measurement (mass/volume)Ordered By: Dr. Hernandez on 08-04-2022 Hemoglobin (Bld) [Mass/Vol] 12.1 g/dL 12.0-15.0 [facility] Blood lymphocytes/100 leukoc ytesOrdered By: Dr. Hernandez on 08-04-2022 Lymphocytes/100 WBC (Bld) 10.5 % 19-41 [facility] Blood monocytes/100 leukocyt esOrdered By: Dr. Hernandez on 08-04-2022 Monocytes/100 WBC (Bld) 5.1 % 0-10 [facility] Blood platelet mean volumeOr dered By: Dr. Hernandez on 08-04-2022 Platelet mean volume (Bld) [Entitic vol] 9.3 fL 6.2-12.0 [facility] Determination of erythrocyte mean corpuscular volume (MCV)Ordered By: Dr. Hernandez on 08-04-2022 MCV (RBC) [Entitic vol] 92.6 fL 81-99 [facility] Hematocrit Auto (Bld) [Volum e fraction]Ordered By: Dr. Hernandez on 08-04-2022 Hematocrit (Bld) [Volume fraction] 37.4 % 37-47 [facility] Influenza virus A and B and SARS-CoV-2 (COVID-19) Ag panel - Upper respiratory specimOrdered By: Sanju Hernandez on 08-04-2022 SARS-CoV-2 (COVID-19) RNA JUAN+probe Ql (Resp) [facility] Influenza virus A and B and SARS-CoV-2 (COVID-19) Ag panel - Upper respiratory specimOrdered By: Dr. Hernandez on 08-04-2022 SARS-CoV-2 (COVID-19) RNA JUAN+probe Ql (Resp) [facility] Laboratory - Chemistry and C hemistry - challengeOrdered By: Dr. Hernandez on 08-04-2022 ALP [Catalytic activity/Vol] 103 U/L 45-117 [facility] ALT [Catalytic activity/Vol] 18 U/L 13-56 [facility] CO2 [Moles/Vol] 23.0 mmol/L 21.0-32.0 [facility] Globulin (S) [Mass/Vol] 4.4 g/dL 2.2-4.2 [facility] Lipase [Catalytic activity/Vol] 944 U/L 73-393 [facility] Urea nitrogen/Creatinine [Mass ratio] 20.6 mg/mg 10-20 [facility] - Hematology and Cell countsOrdered By: Dr. Hernandez on 08-04-2022 Erythrocyte distribution width (RBC) [Entitic vol] 52.5 fL 35.1-43.9 [facility] Erythrocyte distribution width (RBC) [Ratio] 15.5 % 11.6-14.6 [facility] Immature granulocytes/100 WBC (Bld) 1.300 % 0.0-0.9 [facility] Comment on above: IG% - Immature Granu locytes (promyelocytes, myelocytes and metamyelocytes) > 1% indicates that a LEFT SHIFT is Present. MCH (RBC) [Entitic mass] 30.0 pg 27.0-32.0 [facility] Nucleated RBC/100 WBC (Bld) [Ratio] 0 % 0-[address] [facility] [Mass/Vol]Or dered By: Dr. Hernandez on 08-04-2022 MCHC (RBC) [Mass/Vol] 32.4 g/dL 32-36 [facility] No Panel InformationOrdered By: Dr. Hernandez on 08-04-2022 Estimated Creatinine Clearance Calc 31.55 ml/min [facility] Estimated GFR (MDRD) Amer 37 mL/min >60 [facility] Comment on above: GFR Calc Estimated GFR (MDRD) Non-Af Amer 31 mL/min >60 [facility] Comment on above: Non- GFR Calc Platelets bldOrdered By: Dr. Hernandez on 08-04-2022 Platelets (Bld) [#/Vol] 555 10*3/uL 150-450 [facility] Serum or plasma albumin jamey urement (mass/volume)Ordered By: Dr. Hernandez on 08-04-2022 Albumin [Mass/Vol] 3.7 g/dL 3.2-5.0 [facility] Serum or plasma albumin/glob ulin mass ratioOrdered By: Dr. Hernandez on 08-04-2022 Albumin/Globulin [Mass ratio] 0.8 {ratio} 0.9-2.4 [facility] Serum or plasma calcium jamey urement (mass/volume)Ordered By: Dr. Hernandez on 08-04-2022 Calcium [Mass/Vol] 8.9 mg/dL 8.5-10.1 [facility] Serum or plasma creatinine m easurement (mass/volume)Ordered By: Dr. Hernandez on 08-04-2022 Creatinine [Mass/Vol] 1.75 mg/dL 0.55-1.02 [facility] Comment on above: The validity of the calculated GFR & GFRAA in patients over 70 years has not been determined. Clinical correlation is essential. Serum or plasma urea nitroge n measurement (mass/volume)Ordered By: Dr. Hernandez on 08-04-2022 Urea nitrogen [Mass/Vol] 36 mg/dL 7-18 [facility] Thin prep Papanicolaou smear with manual screeningOrdered By: Dr. Hernandez on 08-04-2022 Thin prep Papanicolaou smear with manual screening 10 U/L 15-37 [facility] Thin prep Papanicolaou smear with manual screening 9 5-15 [facility] Absolute lymphocyte countOrd ered By: Dr. Kirkpatrick on 07-20-2022 Lymphocytes Auto (Unsp spec) [#/Vol] 2.19 10*3/uL 0.83-4.51 [facility] Basophil percentageOrdered B y: Dr. Kirkpatrick on 07-20-2022 Basophil percentage 136 mg/dL 74-106 [facility] Basophil percentage 135 mmol/L 136-145 [facility] Basophil percentage 4.3 mmol/L 3.5-5.1 [facility] Basophil percentage 98 mmol/L 98-107 [facility] Basophils (Bld) [#/Vol] 9.6 10*3/uL 4.4-11.0 [facility] Basophils (Bld) [#/Vol] 6.4 10*3/uL 2.0-7.7 [facility] Basophils/100 WBC (Bld) 0.7 % 0-1 [facility] Basophils/100 WBC (Bld) 66.3 % 47-70 [facility] Basophils/100 WBC (Bld) 1.8 % 0-5 [facility] Chloride [Moles/Vol] 98 mmol/L 98-107 [facility] Eosinophils/100 WBC (Bld) 1.8 % 0-5 [facility] Glucose [Mass/Vol] 136 mg/dL 74-106 [facility] Comment on above: Fasting Glucose resu lt greater than or equal to 126 mg/dL suggests DIABETES MELLITUS per A.D.A. criteria. Neutrophils (Bld) [#/Vol] 6.4 10*3/uL 2.0-7.7 [facility] Neutrophils/100 WBC (Bld) 66.3 % 47-70 [facility] Potassium [Moles/Vol] 4.3 mmol/L 3.5-5.1 [facility] Sodium [Moles/Vol] 135 mmol/L 136-145 [facility] WBC (Bld) [#/Vol] 9.6 10*3/uL 4.4-11.0 [facility] Blood erythrocytes count (nu mber/volume)Ordered By: Dr. Kirkpatrick on 07-20-2022 RBC (Bld) [#/Vol] 4.01 10*6/uL 4.2-5.4 [facility] Blood hemoglobin measurement (mass/volume)Ordered By: Dr. Kirkpatrick on 07-20-2022 Hemoglobin (Bld) [Mass/Vol] 12.2 g/dL 12.0-15.0 [facility] Blood lymphocytes/100 leukoc ytesOrdered By: Dr. Kirkpatrick on 07-20-2022 Lymphocytes/100 WBC (Bld) 22.9 % 19-41 [facility] Blood monocytes/100 leukocyt esOrdered By: Dr. Kirkpatrick on 07-20-2022 Monocytes/100 WBC (Bld) 7.6 % 0-10 [facility] Blood platelet mean volumeOr dered By: Dr. Kirkpatrick on 07-20-2022 Platelet mean volume (Bld) [Entitic vol] 9.5 fL 6.2-12.0 [facility] Determination of erythrocyte mean corpuscular volume (MCV)Ordered By: Dr. Kirkpatrick on 07-20-2022 MCV (RBC) [Entitic vol] 90.5 fL 81-99 [facility] Hematocrit Auto (Bld) [Volum e fraction]Ordered By: Dr. Kirkpatrick on 07-20-2022 Hematocrit (Bld) [Volume fraction] 36.3 % 37-47 [facility] Laboratory - Chemistry and C hemistry - challengeOrdered By: Dr. Kirkpatrick on 07-20-2022 CO2 [Moles/Vol] 27.0 mmol/L 21.0-32.0 [facility] Urea nitrogen/Creatinine [Mass ratio] 17.6 mg/mg 10-20 [facility] - Hematology and Cell countsOrdered By: Dr. Kirkpatrick on 07-20-2022 Erythrocyte distribution width (RBC) [Entitic vol] 49.1 fL 35.1-43.9 [facility] Erythrocyte distribution width (RBC) [Ratio] 15.0 % 11.6-14.6 [facility] Immature granulocytes/100 WBC (Bld) 0.700 % 0.0-0.9 [facility] Comment on above: IG% - Immature Granu locytes (promyelocytes, myelocytes and metamyelocytes) > 1% indicates that a LEFT SHIFT is Present. MCH (RBC) [Entitic mass] 30.4 pg 27.0-32.0 [facility] Nucleated RBC/100 WBC (Bld) [Ratio] 0 % 0-5 [facility] MCHC Auto (RBC) [Mass/Vol]Or dered By: Dr. Kirkpatrick on 07-20-2022 MCHC (RBC) [Mass/Vol] 33.6 g/dL 32-36 [facility] No Panel InformationOrdered By: Dr. Kirkpatrick on 07-20-2022 Estimated Creatinine Clearance Calc 41.53 ml/min [facility] Estimated GFR (MDRD) Amer 55 mL/min >60 [facility] Comment on above: GFR Calc Estimated GFR (MDRD) Non-Af Amer 46 mL/min >60 [facility] Comment on above: Non- GFR Calc 30.4 pg 27.0-32.0 [facility] 15.0 % 11.6-14.6 [facility] 49.1 fl 35.1-43.9 [facility] 0.700 % 0.0-0.9 [facility] 0 % 0-5 [facility] 46 mL/min >60 [facility] 55 mL/min >60 [facility] 41.53 ml/min [facility] 17.6 RATIO 10-20 [facility] 27.0 mmol/L 21.0-32.0 [facility] Platelets bldOrdered By: Dr. Kirkpatrick on 07-20-2022 Platelets (Bld) [#/Vol] 390 10*3/uL 150-450 [facility] Serum or plasma calcium jamey urement (mass/volume)Ordered By: Dr. Kirkpatrick on 07-20-2022 Calcium [Mass/Vol] 9.3 mg/dL 8.5-10.1 [facility] Serum or plasma creatinine m easurement (mass/volume)Ordered By: Dr. Kirkpatrick on 07-20-2022 Creatinine [Mass/Vol] 1.25 mg/dL 0.55-1.02 [facility] Comment on above: The validity of the calculated GFR & GFRAA in patients over 70 years has not been determined. Clinical correlation is essential. Serum or plasma urea nitroge n measurement (mass/volume)Ordered By: Dr. Kirkpatrick on 07-20-2022 Urea nitrogen [Mass/Vol] 22 mg/dL 7-18 [facility] Thin prep Papanicolaou smear with manual screeningOrdered By: Dr. Kirkpatrick on 07-20-2022 Thin prep Papanicolaou smear with manual screening 10 5-15 [facility] Basophil percentageOrdered B y: Dr. Marie on 04-20-2022 Basophil percentage 3.5 mg/dL 2.5-4.9 [facility] Chloride [Moles/Vol] 100 mmol/L 98-107 [facility] Glucose [Mass/Vol] 153 mg/dL 74-106 [facility] Comment on above: Fasting Glucose resu lt greater than or equal to 126 mg/dL suggests DIABETES MELLITUS per A.D.A. criteria. Potassium [Moles/Vol] 3.9 mmol/L 3.5-5.1 [facility] Sodium [Moles/Vol] 136 mmol/L 136-145 [facility] Laboratory - Chemistry and C hemistry - challengeOrdered By: Dr. Marie on 04-20-2022 CO2 [Moles/Vol] 27.0 mmol/L 21.0-32.0 [facility] Urea nitrogen/Creatinine [Mass ratio] 18.1 mg/mg 10-20 [facility] No Panel InformationOrdered By: Dr. Marie on 04-20-2022 Estimated GFR (MDRD) Amer 60 mL/min >60 [facility] Comment on above: GFR Calc Estimated GFR (MDRD) Non-Af Amer 50 mL/min >60 [facility] Comment on above: Non- GFR Calc Serum or plasma albumin jamey urement (mass/volume)Ordered By: Dr. Marie on 04-20-2022 Albumin [Mass/Vol] 3.7 g/dL 3.2-5.0 [facility] Serum or plasma calcium jamey urement (mass/volume)Ordered By: Dr. Marie on 04-20-2022 Calcium [Mass/Vol] 9.0 mg/dL 8.5-10.1 [facility] Serum or plasma creatinine m easurement (mass/volume)Ordered By: Dr. Marie on 04-20-2022 Creatinine [Mass/Vol] 1.16 mg/dL 0.55-1.02 [facility] Comment on above: The validity of the calculated GFR & GFRAA in patients over 70 years has not been determined. Clinical correlation is essential. Serum or plasma urea nitroge n measurement (mass/volume)Ordered By: Dr. Marie on 04-20-2022 Urea nitrogen [Mass/Vol] 21 mg/dL 7-18 [facility] Urine creatinine measurement (mass/volume)Ordered By: Dr. Marie on 04-20-2022 Creatinine (U) [Mass/Vol] 63.20 mg/dL NO RANGE EST. [facility] Urine protein measurement (m ass/volume)Ordered By: Dr. Marie on 04-20-2022 Protein (U) [Mass/Vol] 11.9 mg/dL 0.0-11.8 [facility] Urine protein/creatinine mas s ratioOrdered By: Dr. Marie on 04-20-2022 Protein/Creatinine (U) [Mass ratio] 188 mg/g CRE 0-200 [facility] Colonoscopyon 03-16-2022 Colonoscopy PATIENTNAME Patient Name: Asif Dela Cruz EXAMDATE Procedure Date: 03/16/2022 2:05 PM PATIENTID PATIENTACCOUNTNUM PATIENTDOB Date of : 1955 ADMITTYPE Admit Type: Outpatient PATIENTROOM Site: [place] [address] ETHNICITY Ethnicity: Not or RACE Race: White PROVDR Attending MD: Servando Clay DO, [id number] ENDOPROCEDURENAME Procedure: Colonoscopy INDICATION Indications: Clinically significant [...] scheduled. CPT_CODES Procedure Code(s): --- Professional --- 77357, Colonoscopy, flexible; with biopsy, single or multiple G0500, Moderate sedation services provided by the same physician or other qualified health hearing care practitioner performing a gastrointestinal endoscopic service that sedation supports, requiring the presence of an independent trained observer to assist in the monitoring of the patient's level of consciousness and physiological status; initial 15 minutes of intra-service time; patient age 5 years or older (additional time may be reported with 991 (more content not included)... Normal [facility] GLUCOSE-POCTon 03-16-2022 Glucose [Mass/Vol] 114 mg/dL High 74 - 99 [facility] Comment on above: Performed By: #### G RAJENDRA #### [facility] [address] [place] [address] Laboratory - Chemistry and C hemistry - challengeon 03-16-2022 Glucose [Mass/Vol] 114 mg/dL above high threshold 74 - 99 [facility] Work Phone: No Panel Informationon 03-16 [facility] Work Phone: [email or web address]} [facility] Work Phone: [facility] Surgical Pathology Depar tmenton 03-16-2022 [facility] Surgical Pathology Department Name ASIF DELA CRUZ Pathologist: TWILA LEMA MD Date of Procedure: 03/16/2022 Date Received: 03/16/2022 Date Reported 03/26/2022 Submitting Physician: SERVANDO CLAY DO Location: [facility] Copy To/Referring/Attending: Pt States No PCP Other External # FINAL DIAGNOSIS A. COLON, RANDOM: -- COLONIC MUCOSA WITH NO SIGNIFICANT PATHOLOGIC FINDINGS. -- NEGATIVE FOR MICROSCOPIC COLITIS. Electronically Signed Out By TWILA LEMA MD/MARCELA By the signature on this report, the individual or group listed as making the Final Interpretation/Diagnosis certifies that they have reviewed this case. Diagnostic interpretation performed at [address] [place] [address] Clinical History: Physician Contact Number: [id number] Fixative (A): Formalin Clinical Diagnosis History diarrhea Specimens Submitted As: A: RANDOM COLON Gross Description: Received in formalin, labeled with the patient's name and hospital number and random colon, are multiple fragments of mahmood, soft tissue aggregating to 1.8 x 0.2 x 0.2 cm. The specimen is submitted in toto in one cassette. JW jwh/03/17/2022 [facility] Department of Pathology [address] [place] [address] Normal [facility] Comment on above: Performed By: #### [facility] #### [facility] Surgical Pathology Department [address] [place] [address] Established Visit (Gastroent erology)on 02-17-2022 Established Visit (Gastroenterology) Diagnoses/Problems Assessed Acute left lower quadrant pain (789.04,338.19) (R10.32) Orders Acute left lower quadrant pain Colonoscopy Diagnostic; Status:Hold For - Scheduling; Requested for:17Feb2022; Perform:[facility]; Due:[id number];Ordered; For:Acute left lower quadrant pain; Ordered By:Servando [...] states stools are dark. Patient states her Acid Leveler wated her to ask about Ozempic with [...] percentageon 2021 Bilirubin [Mass/Vol] 0.40 mg/dL 0.20-1.00 [facility] Work Phone: Comment on above: For patients on eltr ombopag therapy, use of Dimension Nora TBIL is not recommended. Chloride [Moles/Vol] 102 mmol/L 98-107 [facility] Work Phone: Glucose [Mass/Vol] 135 mg/dL 74-106 [facility] Work Phone: Comment on above: Fasting Glucose resu lt greater than or equal to 126 mg/dL suggests DIABETES MELLITUS per A.D.A. criteria. Potassium [Moles/Vol] 4.2 mmol/L 3.5-5.1 [facility] Work Phone: Protein [Mass/Vol] 7.7 g/dL 6.4-8.2 [facility] Work Phone: Sodium [Moles/Vol] 139 mmol/L 136-145 [facility] Work Phone: Laboratory - Chemistry and C hemistry - challengeon 02-07-2022 ALP [Catalytic activity/Vol] 86 U/L 45-117 [facility] Work Phone: ALT [Catalytic activity/Vol] 18 U/L 13-56 [facility] Work Phone: CO2 [Moles/Vol] 28.0 mmol/L 21.0-32.0 [facility] Work Phone: Free T4 [Mass/Vol] 1.22 ng/dL 0.76-1.46 [facility] Work Phone: Globulin (S) [Mass/Vol] 3.9 g/dL 2.2-4.2 [facility] Work Phone: Urea nitrogen/Creatinine [Mass ratio] 20.0 mg/mg 10-20 [facility] Work Phone: Laboratory - Hematology and Cell countson 02-07-2022 HbA1c (Bld) [Mass fraction] 7.0 % [facility] Work Phone: No Panel Informationon 02-07 Estimated GFR (MDRD) Amer 64 mL/min >60 [facility] Work Phone: Comment on above: GFR Calc Estimated GFR (MDRD) Non-Af Amer 53 mL/min >60 [facility] Work Phone: Comment on above: Non- GFR Calc Thyroid Stimulating Hormone (TSH) 1.74 uIU/mL 0.358-3.74 [facility] Work Phone: Serum or plasma albumin jamey urement (mass/volume)on 02-07-2022 Albumin [Mass/Vol] 3.8 g/dL 3.2-5.0 [facility] Work Phone: Serum or plasma albumin/glob ulin mass ratioon 02-07-2022 Albumin/Globulin [Mass ratio] 1.0 {ratio} 0.9-2.4 [facility] Work Phone: Serum or plasma calcium jamey urement (mass/volume)on 02-07-2022 Calcium [Mass/Vol] 9.0 mg/dL 8.5-10.1 [facility] Work Phone: Serum or plasma creatinine m easurement (mass/volume)on 02-07-2022 Creatinine [Mass/Vol] 1.10 mg/dL 0.55-1.02 [facility] Work Phone: Comment on above: The validity of the calculated GFR & GFRAA in patients over 70 years has not been determined. Clinical correlation is essential. Serum or plasma urea nitroge n measurement (mass/volume)on 02-07-2022 Urea nitrogen [Mass/Vol] 22 mg/dL 7-18 [facility] Work Phone: Thin prep Papanicolaou smear with manual screeningon 02-07-2022 Thin prep Papanicolaou smear with manual screening 11 U/L 15-37 [facility] Work Phone: Thin prep Papanicolaou smear with manual screening 9 5-15 [facility] Work Phone: Basophil percentageon 2021 Bilirubin [Mass/Vol] 0.40 mg/dL 0.20-1.00 [facility] Work Phone: Comment on above: For patients on eltr ombopag therapy, use of Dimension Nora TBIL is not recommended. Cholesterol [Mass/Vol] 205 mg/dL <200 [facility] Work Phone: Comment on above: <200 mg/dL Desirable 200-240 mg/dL Borderline >240 mg/dL High Risk Protein [Mass/Vol] 7.3 g/dL 6.4-8.2 [facility] Work Phone: Triglyceride [Mass/Vol] 208 mg/dL <199 [facility] Work Phone: Comment on above: The drugs N-Acetylcy steine and Metamizole may falsely depress this assay.Serum Triglycerides Reference Interval Normal <150 mg/dL Borderline high 150 - 199 mg/dL High 200 - 499 mg/dL Very High > or = 500 mg/dL Direct bilirubinon 2 Bilirubin.direct [Mass/Vol] 0.09 mg/dL 0.00-0.30 [facility] Work Phone: Laboratory - Chemistry and C hemistry - challengeon 01-14-2022 ALP [Catalytic activity/Vol] 86 U/L 45-117 [facility] Work Phone: ALT [Catalytic activity/Vol] 18 U/L 13-56 [facility] Work Phone: Globulin (S) [Mass/Vol] 3.6 g/dL 2.2-4.2 [facility] Work Phone: Serum or plasma albumin jamey urement (mass/volume)on 01-14-2022 Albumin [Mass/Vol] 3.7 g/dL 3.2-5.0 [facility] Work Phone: Serum or plasma cholesterol in HDL measurement (mass/volume)on 01-14-2022 Cholesterol in HDL [Mass/Vol] 54 mg/dL >40 [facility] Work Phone: Comment on above: The drugs N-Acetylcy steine and Metamizole may falsely depress this assay. Reference Range HDL <40 mg/dL Low HDL Cholesterol HDL >or= 60 mg/dL High HDL Cholesterol Serum or plasma cholesterol in VLDL measurement (mass/volume)on 01-14-2022 Cholesterol in VLDL [Mass/Vol] 42 mg/dL 5-40 [facility] Work Phone: Serum or plasma low density lipoprotein (LDL) cholesterol measurement (mass/volume)on 01-14-2022 Cholesterol in LDL [Mass/Vol] 109 mg/dL 0-130 [facility] Work Phone: Thin prep Papanicolaou smear with manual screeningon 01-14-2022 Thin prep Papanicolaou smear with manual screening 8 U/L 15-37 [facility] Work Phone: Established Visit (Gastroent erology)on 01-06-2022 Established Visit (Gastroenterology) Diagnoses/Problems Assessed IBS (irritable bowel syndrome) (564.1) (K58.9) Orders IBS (irritable bowel syndrome) Start: Sucralfate 1 GM Oral Tablet; TAKE 1 TABLET EVERY 12 HOURS DAILY Rx By: Servando Clay; Dispense: 30 Days ; #:60 Tablet; Refill: 5;For: IBS (irritable bowel syndrome); [place] = N; Verified Transmission to [facility] [id number]; Last Updated By: [employer]; 01/06/2022 1:59:11 PM Provider Impressions I informed [...] seen today in follow-up. She was at [place] [facility] late October with 5-day history of [...] was in 2018. CT scan reviewed from [place] [facility] revealed small bowel loops with fluid [...] (493.90) (J45.2 (more content not included)... Normal [facility] - Microbiology an d Antimicrobial susceptibilityon 12-10-2021 SARS-CoV-2 (COVID-19) RNA JUAN+probe Ql (Unsp spec) Not detected Not Detect [facility] Work Phone: Comment on above: Normal Reference [...] Auto (Unsp spec) [#/Vol] 1.67 10*3/uL 0.83-4.51 [facility] Work Phone: Basophil percentageon 2021 Basophils/100 WBC (Bld) 0.4 % 0-1 [facility] Work Phone: Bilirubin [Mass/Vol] 0.40 mg/dL 0.20-1.00 [facility] Work Phone: Comment on above: For patients on eltr ombopag therapy, use of Dimension Nora TBIL is not recommended. Chloride [Moles/Vol] 95 mmol/L 98-107 [facility] Work Phone: Eosinophils/100 WBC (Bld) 1.4 % 0-5 [facility] Work Phone: Glucose [Mass/Vol] 150 mg/dL 74-106 [facility] Work Phone: Comment on above: Fasting Glucose resu lt greater than or equal to 126 mg/dL suggests DIABETES MELLITUS per A.D.A. criteria. Neutrophils (Bld) [#/Vol] 8.9 10*3/uL 2.0-7.7 [facility] Work Phone: [phone] Neutrophils/100 WBC (Bld) 77.2 % 47-70 [facility] Work Phone: Potassium [Moles/Vol] 3.7 mmol/L 3.5-5.1 [facility] Work Phone: Protein [Mass/Vol] 8.4 g/dL 6.4-8.2 [facility] Work Phone: Sodium [Moles/Vol] 130 mmol/L 136-145 [facility] Work Phone: WBC (Bld) [#/Vol] 11.5 10*3/uL 4.4-11.0 [facility] Work Phone: Blood erythrocytes count (nu mber/volume)on 11-16-2021 RBC (Bld) [#/Vol] 4.19 10*6/uL 4.2-5.4 [facility] Work Phone: Blood hemoglobin measurement (mass/volume)on 11-16-2021 Hemoglobin (Bld) [Mass/Vol] 12.7 g/dL 12.0-15.0 [facility] Work Phone: Blood lymphocytes/100 leukoc yteson 11-16-2021 Lymphocytes/100 WBC (Bld) 14.5 % 19-41 [facility] Work Phone: Blood monocytes/100 leukocyt eson 11-16-2021 Monocytes/100 WBC (Bld) 5.7 % 0-10 [facility] Work Phone: Blood platelet mean volumeon 11-16-2021 Platelet mean volume (Bld) [Entitic vol] 9.4 fL 6.2-12.0 [facility] Work Phone: Determination of erythrocyte mean corpuscular volume (MCV)on 11-16-2021 MCV (RBC) [Entitic vol] 93.3 fL 81-99 [facility] Work Phone: Hematocrit Auto (Bld) [Volum e fraction]on 11-16-2021 Hematocrit (Bld) [Volume fraction] 39.1 % 37-47 [facility] Work Phone: Laboratory - Chemistry and C hemistry - challengeon 11-16-2021 ALP [Catalytic activity/Vol] 94 U/L 45-117 [facility] Work Phone: [phone] ALT [Catalytic activity/Vol] 19 U/L 13-56 [facility] Work Phone: CO2 [Moles/Vol] 24.0 mmol/L 21.0-32.0 [facility] Work Phone: Globulin (S) [Mass/Vol] 4.4 g/dL 2.2-4.2 [facility] Work Phone: Lipase [Catalytic activity/Vol] 77 U/L 73-393 [facility] Work Phone: Magnesium [Mass/Vol] 2.0 mg/dL 1.6-2.6 [facility] Work Phone: Urea nitrogen/Creatinine [Mass ratio] 31.3 mg/mg 10-20 [facility] Work Phone: Laboratory - Hematology and Cell countson 11-16-2021 Erythrocyte distribution width (RBC) [Entitic vol] 48.6 fL 35.1-43.9 [facility] Work Phone: Erythrocyte distribution width (RBC) [Ratio] 14.3 % 11.6-14.6 [facility] Work Phone: Immature granulocytes/100 WBC (Bld) 0.800 % 0.0-0.9 [facility] Work Phone: Comment on above: IG% - Immature Granu locytes (promyelocytes, myelocytes and metamyelocytes) > 1% indicates that a LEFT SHIFT is Present. MCH (RBC) [Entitic mass] 30.3 pg 27.0-32.0 [facility] Work Phone: Nucleated RBC/100 WBC (Bld) [Ratio] 0 % 0-5 [facility] Work Phone: MCHC Auto (RBC) [Mass/Vol]on 11-16-2021 MCHC (RBC) [Mass/Vol] 32.5 g/dL 32-36 [facility] Work Phone: No Panel Informationon 11-16 Estimated Creatinine Clearance Calc 27.82 ml/min [facility] Work Phone: Estimated GFR (MDRD) Amer 37 mL/min >60 [facility] Work Phone: Comment on above: GFR Calc Estimated GFR (MDRD) Non-Af Amer 30 mL/min >60 [facility] Work Phone: Comment on above: Non- GFR Calc Platelets bldon 11-16-2021 Platelets (Bld) [#/Vol] 512 10*3/uL 150-450 [facility] Work Phone: Serum or plasma albumin jamey urement (mass/volume)on 11-16-2021 Albumin [Mass/Vol] 4.0 g/dL 3.2-5.0 [facility] Work Phone: Serum or plasma albumin/glob ulin mass ratioon 11-16-2021 Albumin/Globulin [Mass ratio] 0.9 {ratio} 0.9-2.4 [facility] Work Phone: Serum or plasma calcium jamey urement (mass/volume)on 11-16-2021 Calcium [Mass/Vol] 8.9 mg/dL 8.5-10.1 [facility] Work Phone: Serum or plasma creatinine m easurement (mass/volume)on 11-16-2021 Creatinine [Mass/Vol] 1.79 mg/dL 0.55-1.02 [facility] Work Phone: Comment on above: The validity of the calculated GFR & GFRAA in patients over 70 years has not been determined. Clinical correlation is essential. Serum or plasma urea nitroge n measurement (mass/volume)on 11-16-2021 Urea nitrogen [Mass/Vol] 56 mg/dL 7-18 [facility] Work Phone: Thin prep Papanicolaou smear with manual screeningon 11-16-2021 Thin prep Papanicolaou smear with manual screening 11 U/L 15-37 [facility] Work Phone: Thin prep Papanicolaou smear with manual screening 11 5-15 [facility] Work Phone: Absolute lymphocyte counton 11-10-2021 Lymphocytes Auto (Unsp spec) [#/Vol] 2.13 10*3/uL 0.83-4.51 [facility] Work Phone: Basophil percentageon 2021 Basophils/100 WBC (Bld) 0.5 % 0-1 [facility] Work Phone: Bilirubin [Mass/Vol] 0.20 mg/dL 0.20-1.00 [facility] Work Phone: Comment on above: For patients on eltr ombopag therapy, use of Dimension Nora TBIL is not recommended. Chloride [Moles/Vol] 110 mmol/L 98-107 [facility] Work Phone: Eosinophils/100 WBC (Bld) 1.5 % 0-5 [facility] Work Phone: Glucose [Mass/Vol] 149 mg/dL 74-106 [facility] Work Phone: Comment on above: Fasting Glucose resu lt greater than or equal to 126 mg/dL suggests DIABETES MELLITUS per A.D.A. criteria. Neutrophils (Bld) [#/Vol] 3.6 10*3/uL 2.0-7.7 [facility] Work Phone: Neutrophils/100 WBC (Bld) 55.5 % 47-70 [facility] Work Phone: [phone] Potassium [Moles/Vol] 3.7 mmol/L 3.5-5.1 [facility] Work Phone: Protein [Mass/Vol] 5.7 g/dL 6.4-8.2 [facility] Work Phone: Sodium [Moles/Vol] 140 mmol/L 136-145 [facility] Work Phone: WBC (Bld) [#/Vol] 6.5 10*3/uL 4.4-11.0 [facility] Work Phone: Blood erythrocytes count (nu mber/volume)on 11-10-2021 RBC (Bld) [#/Vol] 2.77 10*6/uL 4.2-5.4 [facility] Work Phone: Blood hemoglobin measurement (mass/volume)on 11-10-2021 Hemoglobin (Bld) [Mass/Vol] 8.6 g/dL 12.0-15.0 [facility] Work Phone: Blood lymphocytes/100 leukoc yteson 11-10-2021 Lymphocytes/100 WBC (Bld) 32.9 % 19-41 [facility] Work Phone: Blood monocytes/100 leukocyt eson 11-10-2021 Monocytes/100 WBC (Bld) 9.3 % 0-10 [facility] Work Phone: Blood platelet mean volumeon 11-10-2021 Platelet mean volume (Bld) [Entitic vol] 9.2 fL 6.2-12.0 [facility] Work Phone: Determination of erythrocyte mean corpuscular volume (MCV)on 11-10-2021 MCV (RBC) [Entitic vol] 94.6 fL 81-99 [facility] Work Phone: Glucose Glucometer (BldC) [M ass/Vol]on 11-10-2021 Glucose [Mass/Vol] 151 mg/dL 74-106 [facility] Work Phone: Comment on above: MANAGEMENT OF PATIEN T CARE PER NURSING PROTOCOL Hematocrit Auto (Bld) [Volum e fraction]on 11-10-2021 Hematocrit (Bld) [Volume fraction] 26.2 % 37-47 [facility] Work Phone: Hemoglobin in reticulocytes (mass per reticulocyte)on 11-10-2021 Hemoglobin (Reticulocytes) [Entitic mass] 34.0 pg 30-35 [facility] Work Phone: [phone] Iron measurement (mass/mass) on 11-10-2021 Iron (Unsp spec) [Mass/Mass] 28 ug/dL 50-170 [facility] Work Phone: Laboratory - Chemistry and C hemistry - challengeon 11-10-2021 ALP [Catalytic activity/Vol] 69 U/L 45-117 [facility] Work Phone: [phone] ALT [Catalytic activity/Vol] 16 U/L 13-56 [facility] Work Phone: CO2 [Moles/Vol] 23.0 mmol/L 21.0-32.0 [facility] Work Phone: [phone] Globulin (S) [Mass/Vol] 2.9 g/dL 2.2-4.2 [facility] Work Phone: Magnesium [Mass/Vol] 1.7 mg/dL 1.6-2.6 [facility] Work Phone: [phone] Urea nitrogen/Creatinine [Mass ratio] 16.5 mg/mg 10-20 [facility] Work Phone: Laboratory - Hematology and Cell countson 11-10-2021 Erythrocyte distribution width (RBC) [Entitic vol] 49.7 fL 35.1-43.9 [facility] Work Phone: [phone] Erythrocyte distribution width (RBC) [Ratio] 14.4 % 11.6-14.6 [facility] Work Phone: [phone] Immature granulocytes/100 WBC (Bld) 0.300 % 0.0-0.9 [facility] Work Phone: Comment on above: IG% - Immature Granu locytes (promyelocytes, myelocytes and metamyelocytes) > 1% indicates that a LEFT SHIFT is Present. MCH (RBC) [Entitic mass] 31.0 pg 27.0-32.0 [facility] Work Phone: [phone] Nucleated RBC/100 WBC (Bld) [Ratio] 0 % 0-5 [facility] Work Phone: MCHC Auto (RBC) [Mass/Vol]on 11-10-2021 MCHC (RBC) [Mass/Vol] 32.8 g/dL 32-36 [facility] Work Phone: No Panel Informationon 11-10 Estimated Creatinine Clearance Calc 62.65 ml/min [facility] Work Phone: Estimated GFR (MDRD) Amer 94 mL/min >60 [facility] Work Phone: Comment on above: GFR Calc Estimated GFR (MDRD) Non-Af Amer 78 mL/min >60 [facility] Work Phone: Comment on above: Non- GFR Calc Immature Reticulocyte Fraction 12.60 % 3.00-15.90 [facility] Work Phone: Reticulocyte Count 1.92 % 0.5-1.5 [facility] Work Phone: Total Iron Binding Capacity 308 ug/dL 250-450 [facility] Work Phone: Platelets bldon 11-10-2021 Platelets (Bld) [#/Vol] 307 10*3/uL 150-450 [facility] Work Phone: Serum or plasma albumin jamey urement (mass/volume)on 11-10-2021 Albumin [Mass/Vol] 2.8 g/dL 3.2-5.0 [facility] Work Phone: Serum or plasma albumin/glob ulin mass ratioon 11-10-2021 Albumin/Globulin [Mass ratio] 1.0 {ratio} 0.9-2.4 [facility] Work Phone: Serum or plasma calcium jamey urement (mass/volume)on 11-10-2021 Calcium [Mass/Vol] 8.4 mg/dL 8.5-10.1 [facility] Work Phone: Serum or plasma creatinine m easurement (mass/volume)on 11-10-2021 Creatinine [Mass/Vol] 0.79 mg/dL 0.55-1.02 [facility] Work Phone: Comment on above: The validity of the calculated GFR & GFRAA in patients over 70 years has not been determined. Clinical correlation is essential. Serum or plasma ferritin joshua surement (mass/volume)on 11-10-2021 Ferritin [Mass/Vol] 19 ng/mL 8-252 [facility] Work Phone: Serum or plasma iron saturat ion measurement (mass fraction)on 11-10-2021 Iron saturation [Mass fraction] 9.1 % 15.0-55.0 [facility] Work Phone: Serum or plasma urea nitroge n measurement (mass/volume)on 11-10-2021 Urea nitrogen [Mass/Vol] 13 mg/dL 7-18 [facility] Work Phone: Thin prep Papanicolaou smear with manual screeningon 11-10-2021 Thin prep Papanicolaou smear with manual screening 9 U/L 15-37 [facility] Work Phone: Thin prep Papanicolaou smear with manual screening 7 5-15 [facility] Work Phone: Absolute lymphocyte counton 11-07-2021 Lymphocytes Auto (Unsp spec) [#/Vol] 2.43 10*3/uL 0.83-4.51 [facility] Work Phone: Basophil percentageon 2021 Basophil percentage 0-5 SEEN /hpf 0-5 [facility] Work Phone: Basophils/100 WBC (Bld) 0.3 % 0-1 [facility] Work Phone: Bilirubin [Mass/Vol] 0.60 mg/dL 0.20-1.00 [facility] Work Phone: Comment on above: For patients on eltr ombopag therapy, use of Dimension Nora TBIL is not recommended. Chloride [Moles/Vol] 98 mmol/L 98-107 [facility] Work Phone: Eosinophils/100 WBC (Bld) 0.7 % 0-5 [facility] Work Phone: Glucose [Mass/Vol] 169 mg/dL 74-106 [facility] Work Phone: Comment on above: Fasting Glucose resu lt greater than or equal to 126 mg/dL suggests DIABETES MELLITUS per A.D.A. criteria. Neutrophils (Bld) [#/Vol] 13.9 10*3/uL 2.0-7.7 [facility] Work Phone: Neutrophils/100 WBC (Bld) 79.4 % 47-70 [facility] Work Phone: Potassium [Moles/Vol] 4.5 mmol/L 3.5-5.1 [facility] Work Phone: [phone] Protein [Mass/Vol] 9.7 g/dL 6.4-8.2 [facility] Work Phone: Sodium [Moles/Vol] 133 mmol/L 136-145 [facility] Work Phone: WBC (Bld) [#/Vol] 17.5 10*3/uL 4.4-11.0 [facility] Work Phone: Bilirubin Test strip Ql (U)o n 11-07-2021 Bilirubin Ql (U) Negative Negative [facility] Work Phone: Blood erythrocytes count (nu mber/volume)on 11-07-2021 RBC (Bld) [#/Vol] 4.82 10*6/uL 4.2-5.4 [facility] Work Phone: Blood hemoglobin measurement (mass/volume)on 11-07-2021 Hemoglobin (Bld) [Mass/Vol] 14.7 g/dL 12.0-15.0 [facility] Work Phone: [phone] Blood lymphocytes/100 leukoc yteson 11-07-2021 Lymphocytes/100 WBC (Bld) 13.9 % 19-41 [facility] Work Phone: Blood monocytes/100 leukocyt eson 11-07-2021 Monocytes/100 WBC (Bld) 5.3 % 0-10 [facility] Work Phone: Blood platelet mean volumeon 11-07-2021 Platelet mean volume (Bld) [Entitic vol] 9.2 fL 6.2-12.0 [facility] Work Phone: Determination of erythrocyte mean corpuscular volume (MCV)on 11-07-2021 MCV (RBC) [Entitic vol] 92.9 fL 81-99 [facility] Work Phone: Hematocrit Auto (Bld) [Volum e fraction]on 11-07-2021 Hematocrit (Bld) [Volume fraction] 44.8 % 37-47 [facility] Work Phone: Hyaline casts LM.LPF (Urine sed) [#/Area]on 11-07-2021 Hyaline casts (Urine sed) [#/Area] 0 /[LPF] 0-5 [facility] Work Phone: Ketones Test strip Ql (U)on 11-07-2021 Ketones Ql (U) Negative Negative [facility] Work Phone: Laboratory - Chemistry and C hemistry - challengeon 11-07-2021 ALP [Catalytic activity/Vol] 131 U/L 45-117 [facility] Work Phone: ALT [Catalytic activity/Vol] 23 U/L 13-56 [facility] Work Phone: CO2 [Moles/Vol] 23.0 mmol/L 21.0-32.0 [facility] Work Phone: Globulin (S) [Mass/Vol] 5.0 g/dL 2.2-4.2 [facility] Work Phone: Lipase [Catalytic activity/Vol] 95 U/L 73-393 [facility] Work Phone: Urea nitrogen/Creatinine [Mass ratio] 13.8 mg/mg 10-20 [facility] Work Phone: Laboratory - Hematology and Cell countson 11-07-2021 Erythrocyte distribution width (RBC) [Entitic vol] 49.3 fL 35.1-43.9 [facility] Work Phone: Erythrocyte distribution width (RBC) [Ratio] 14.4 % 11.6-14.6 [facility] Work Phone: Immature granulocytes/100 WBC (Bld) 0.400 % 0.0-0.9 [facility] Work Phone: Comment on above: IG% - Immature Granu locytes (promyelocytes, myelocytes and metamyelocytes) > 1% indicates that a LEFT SHIFT is Present. MCH (RBC) [Entitic mass] 30.5 pg 27.0-32.0 [facility] Work Phone: Nucleated RBC/100 WBC (Bld) [Ratio] 0 % 0-5 [facility] Work Phone: MCHC Auto (RBC) [Mass/Vol]on 11-07-2021 MCHC (RBC) [Mass/Vol] 32.8 g/dL 32-36 [facility] Work Phone: Mucus LM Ql (Urine sed)on Mucus Ql (Urine sed) 1+ /hpf [facility] Work Phone: Nitrite Test strip Ql (U)on 11-07-2021 Nitrite Ql (U) Negative Negative [facility] Work Phone: No Panel Informationon 11-07 Estimated Creatinine Clearance Calc 23.03 ml/min [facility] Work Phone: Estimated GFR (MDRD) Amer 29 mL/min >60 [facility] Work Phone: Comment on above: GFR Calc Estimated GFR (MDRD) Non-Af Amer 24 mL/min >60 [facility] Work Phone: Comment on above: Non- GFR Calc Troponin I High Sensitivity 6 pg/mL 3.0-54.0 [facility] Work Phone: Comment on above: Please Note: New Brandi t Units and Gender Specific Reference Ranges. For more information see Policy Stat Procedure Nora High Sensitivity Troponin (TNIH) and attachments. Platelets bldon 11-07-2021 Platelets (Bld) [#/Vol] 685 10*3/uL 150-450 [facility] Work Phone: Protein Test strip Ql (U)on 11-07-2021 Protein Ql (U) 30 mg/dl Negative [facility] Work Phone: Serum or plasma albumin jamey urement (mass/volume)on 11-07-2021 Albumin [Mass/Vol] 4.7 g/dL 3.2-5.0 [facility] Work Phone: Serum or plasma albumin/glob ulin mass ratioon 11-07-2021 Albumin/Globulin [Mass ratio] 0.9 {ratio} 0.9-2.4 [facility] Work Phone: Serum or plasma calcium jamey urement (mass/volume)on 11-07-2021 Calcium [Mass/Vol] 10.6 mg/dL 8.5-10.1 [facility] Work Phone: Serum or plasma creatinine m easurement (mass/volume)on 11-07-2021 Creatinine [Mass/Vol] 2.18 mg/dL 0.55-1.02 [facility] Work Phone: Comment on above: The validity of the calculated GFR & GFRAA in patients over 70 years has not been determined. Clinical correlation is essential. Serum or plasma urea nitroge n measurement (mass/volume)on 11-07-2021 Urea nitrogen [Mass/Vol] 30 mg/dL 7-18 [facility] Work Phone: Squamous epithelial cells de tection in urine sediment by light microscopyon 11-07-2021 Epithelial cells.squamous LM Ql (Urine sed) 5-10 SEEN /hpf 5-10 [facility] Work Phone: Thin prep Papanicolaou smear with manual screeningon 11-07-2021 Thin prep Papanicolaou smear with manual screening 16 U/L 15-37 [facility] Work Phone: Thin prep Papanicolaou smear with manual screening 12 5-15 [facility] Work Phone: Urine blood detectionon 10-20 RBC Ql (U) Negative Negative [facility] Work Phone: RBC Ql (U) 0 SEEN /hpf 0-5 [facility] Work Phone: Urine clarityon 11-07-2021 Clarity (U) Clear Clear [facility] Work Phone: Urine color determinationon 11-07-2021 Color (U) Yellow Yellow [facility] Work Phone: Urine glucose detectionon Glucose Ql (U) Normal mg/dl Normal [facility] Work Phone: Urine leukocyte esterase det ection by dipstickon 11-07-2021 Leukocyte esterase Test strip Ql (U) 25 /ul Negative [facility] Work Phone: Urine pHon 11-07-2021 pH (U) 5.0 [pH] 5.0 - 8.0 [facility] Work Phone: Urine sediment bacteria coun t by microscopy (number/high power field)on 11-07-2021 Bacteria LM.HPF (Urine sed) [#/Area] 1 /[HPF] None Seen [facility] Work Phone: Urine specific gravity measu rementon 11-07-2021 Specific gravity (U) [Rel density] 1.025 1.002-1.03 0 [facility] Work Phone: Urobilinogen Auto test strip Ql (U)on 11-07-2021 Urobilinogen Ql (U) Normal mg/dl Normal [facility] Work Phone: Laboratory - Chemistry and C hemistry - challengeon 11-05-2021 Free T4 [Mass/Vol] 1.73 ng/dL 0.76-1.46 [facility] Work Phone: No Panel Informationon 11-05 Thyroid Stimulating Hormone (TSH) 0.05 uIU/mL 0.358-3.74 [facility] Work Phone: Basophil percentageon 2021 Chloride [Moles/Vol] 102 mmol/L 98-107 [facility] Work Phone: Glucose [Mass/Vol] 120 mg/dL 74-106 [facility] Work Phone: Comment on above: Fasting Glucose resu lt from 100 to 125 mg/dL suggests IMPAIRED HOMEOSTASIS per A.D.A. criteria. Potassium [Moles/Vol] 3.2 mmol/L 3.5-5.1 [facility] Work Phone: Sodium [Moles/Vol] 137 mmol/L 136-145 [facility] Work Phone: Laboratory - Chemistry and C hemistry - challengeon 10-19-2021 CO2 [Moles/Vol] 27.0 mmol/L 21.0-32.0 [facility] Work Phone: Urea nitrogen/Creatinine [Mass ratio] 16.3 mg/mg 10-20 [facility] Work Phone: No Panel Informationon 10-19 Estimated GFR (MDRD) Amer 53 mL/min >60 [facility] Work Phone: Comment on above: GFR Calc Estimated GFR (MDRD) Non-Af Amer 44 mL/min >60 [facility] Work Phone: Comment on above: Non- GFR Calc Serum or plasma calcium jamey urement (mass/volume)on 10-19-2021 Calcium [Mass/Vol] 8.7 mg/dL 8.5-10.1 [facility] Work Phone: Serum or plasma creatinine m easurement (mass/volume)on 10-19-2021 Creatinine [Mass/Vol] 1.29 mg/dL 0.55-1.02 [facility] Work Phone: Comment on above: The validity of the calculated GFR & GFRAA in patients over 70 years has not been determined. Clinical correlation is essential. Serum or plasma urea nitroge n measurement (mass/volume)on 10-19-2021 Urea nitrogen [Mass/Vol] 21 mg/dL 7-18 [facility] Work Phone: [phone] Thin prep Papanicolaou smear with manual screeningon 10-19-2021 Thin prep Papanicolaou smear with manual screening 8 5-15 [facility] Work Phone: Absolute lymphocyte counton 10-12-2021 Lymphocytes Auto (Unsp spec) [#/Vol] 1.67 10*3/uL 0.83-4.51 [facility] Work Phone: Basophil percentageon 2021 Basophils/100 WBC (Bld) 0.6 % 0-1 [facility] Work Phone: Chloride [Moles/Vol] 105 mmol/L 98-107 [facility] Work Phone: Eosinophils/100 WBC (Bld) 3.0 % 0-5 [facility] Work Phone: Glucose [Mass/Vol] 132 mg/dL 74-106 [facility] Work Phone: Comment on above: Fasting Glucose resu lt greater than or equal to 126 mg/dL suggests DIABETES MELLITUS per A.D.A. criteria. Neutrophils (Bld) [#/Vol] 7.4 10*3/uL 2.0-7.7 [facility] Work Phone: [phone] Neutrophils/100 WBC (Bld) 72.2 % 47-70 [facility] Work Phone: Potassium [Moles/Vol] 4.5 mmol/L 3.5-5.1 [facility] Work Phone: [phone] Comment on above: Slight Hemolysis, Re sult may be falsely increased. Sodium [Moles/Vol] 137 mmol/L 136-145 [facility] Work Phone: WBC (Bld) [#/Vol] 10.2 10*3/uL 4.4-11.0 [facility] Work Phone: Blood erythrocytes count (nu mber/volume)on 10-12-2021 RBC (Bld) [#/Vol] 3.79 10*6/uL 4.2-5.4 [facility] Work Phone: Blood hemoglobin measurement (mass/volume)on 10-12-2021 Hemoglobin (Bld) [Mass/Vol] 11.9 g/dL 12.0-15.0 [facility] Work Phone: Blood lymphocytes/100 leukoc yteson 10-12-2021 Lymphocytes/100 WBC (Bld) 16.3 % 19-41 [facility] Work Phone: Blood monocytes/100 leukocyt eson 10-12-2021 Monocytes/100 WBC (Bld) 7.5 % 0-10 [facility] Work Phone: Blood platelet mean volumeon 10-12-2021 Platelet mean volume (Bld) [Entitic vol] 9.5 fL 6.2-12.0 [facility] Work Phone: Determination of erythrocyte mean corpuscular volume (MCV)on 10-12-2021 MCV (RBC) [Entitic vol] 95.8 fL 81-99 [facility] Work Phone: Hematocrit Auto (Bld) [Volum e fraction]on 10-12-2021 Hematocrit (Bld) [Volume fraction] 36.3 % 37-47 [facility] Work Phone: Laboratory - Chemistry and C hemistry - challengeon 10-12-2021 CO2 [Moles/Vol] 22.0 mmol/L 21.0-32.0 [facility] Work Phone: Natriuretic peptide B (Bld) [Mass/Vol] 124.7 pg/mL 0-100 [facility] Work Phone: Urea nitrogen/Creatinine [Mass ratio] 18.3 mg/mg 10-20 [facility] Work Phone: Laboratory - Hematology and Cell countson 10-12-2021 Erythrocyte distribution width (RBC) [Entitic vol] 51.6 fL 35.1-43.9 [facility] Work Phone: Erythrocyte distribution width (RBC) [Ratio] 14.8 % 11.6-14.6 [facility] Work Phone: Immature granulocytes/100 WBC (Bld) 0.400 % 0.0-0.9 [facility] Work Phone: Comment on above: IG% - Immature Granu locytes (promyelocytes, myelocytes and metamyelocytes) > 1% indicates that a LEFT SHIFT is Present. MCH (RBC) [Entitic mass] 31.4 pg 27.0-32.0 [facility] Work Phone: Nucleated RBC/100 WBC (Bld) [Ratio] 0 % 0-5 [facility] Work Phone: MCHC Auto (RBC) [Mass/Vol]on 10-12-2021 MCHC (RBC) [Mass/Vol] 32.8 g/dL 32-36 [facility] Work Phone: No Panel Informationon 10-12 Estimated GFR (MDRD) Amer 52 mL/min >60 [facility] Work Phone: Comment on above: GFR Calc Estimated GFR (MDRD) Non-Af Amer 43 mL/min >60 [facility] Work Phone: Comment on above: Non- GFR Calc Platelets bldon 10-12-2021 Platelets (Bld) [#/Vol] 503 10*3/uL 150-450 [facility] Work Phone: Serum or plasma calcium jamey urement (mass/volume)on 10-12-2021 Calcium [Mass/Vol] 9.1 mg/dL 8.5-10.1 [facility] Work Phone: Serum or plasma creatinine m easurement (mass/volume)on 10-12-2021 Creatinine [Mass/Vol] 1.31 mg/dL 0.55-1.02 [facility] Work Phone: Comment on above: The validity of the calculated GFR & GFRAA in patients over 70 years has not been determined. Clinical correlation is essential. Serum or plasma urea nitroge n measurement (mass/volume)on 10-12-2021 Urea nitrogen [Mass/Vol] 24 mg/dL 7-18 [facility] Work Phone: Thin prep Papanicolaou smear with manual screeningon 10-12-2021 Thin prep Papanicolaou smear with manual screening 10 5-15 [facility] Work Phone: LEFT HEART CATHon 09-17-2021 LEFT [...] normal. Sinus of Valsalva is normal. Normal [facility] ECG 12 Leadon 09-10-2021 Atrial Rate [facility] P [place] [facility] P-R Interval [facility] Q-T Interval [facility] Q-T Interval (corrected) [facility] QRS Duration [facility] QTC Calculation (Bezet) [facility] R [place] [facility] T [place] [facility] Ventricular Rate [facility] Basophil percentageon 2021 Bilirubin [Mass/Vol] 0.40 mg/dL 0.20-1.00 [facility] Work Phone: Comment on above: For patients on eltr ombopag therapy, use of Dimension Nora TBIL is not recommended. Chloride [Moles/Vol] 102 mmol/L 98-107 [facility] Work Phone: Cholesterol [Mass/Vol] 149 mg/dL <200 [facility] Work Phone: Comment on above: <200 mg/dL Desirable 200-240 mg/dL Borderline >240 mg/dL High Risk Glucose [Mass/Vol] 101 mg/dL 74-106 [facility] Work Phone: Comment on above: Fasting Glucose resu lt from 100 to 125 mg/dL suggests IMPAIRED HOMEOSTASIS per A.D.A. criteria. Potassium [Moles/Vol] 4.3 mmol/L 3.5-5.1 [facility] Work Phone: Protein [Mass/Vol] 7.9 g/dL 6.4-8.2 [facility] Work Phone: Sodium [Moles/Vol] 136 mmol/L 136-145 [facility] Work Phone: Triglyceride [Mass/Vol] 209 mg/dL <199 [facility] Work Phone: Comment on above: The drugs N-Acetylcy steine and Metamizole may falsely depress this assay.Serum Triglycerides Reference Interval Normal <150 mg/dL Borderline high 150 - 199 mg/dL High 200 - 499 mg/dL Very High > or = 500 mg/dL Laboratory - Chemistry and C hemistry - challengeon 07-26-2021 ALP [Catalytic activity/Vol] 82 U/L 45-117 [facility] Work Phone: ALT [Catalytic activity/Vol] 21 U/L 13-56 [facility] Work Phone: CO2 [Moles/Vol] 27.0 mmol/L 21.0-32.0 [facility] Work Phone: Free T4 [Mass/Vol] 1.79 ng/dL 0.76-1.46 [facility] Work Phone: Globulin (S) [Mass/Vol] 3.8 g/dL 2.2-4.2 [facility] Work Phone: Urea nitrogen/Creatinine [Mass ratio] 15.2 mg/mg 10-20 [facility] Work Phone: Laboratory - Hematology and Cell countson 07-26-2021 HbA1c (Bld) [Mass fraction] 6.2 % 4.2-6.3 [facility] Work Phone: No Panel Informationon 07-26 Estimated GFR (MDRD) Amer 68 mL/min >60 [facility] Work Phone: Comment on above: GFR Calc Estimated GFR (MDRD) Non-Af Amer 56 mL/min >60 [facility] Work Phone: Comment on above: Non- GFR Calc Thyroid Stimulating Hormone (TSH) 0.06 uIU/mL 0.358-3.74 [facility] Work Phone: Serum or plasma albumin jamey urement (mass/volume)on 07-26-2021 Albumin [Mass/Vol] 4.1 g/dL 3.2-5.0 [facility] Work Phone: Serum or plasma albumin/glob ulin mass ratioon 07-26-2021 Albumin/Globulin [Mass ratio] 1.1 {ratio} 0.9-2.4 [facility] Work Phone: Serum or plasma calcium jamey urement (mass/volume)on 07-26-2021 Calcium [Mass/Vol] 9.1 mg/dL 8.5-10.1 [facility] Work Phone: Serum or plasma cholesterol in HDL measurement (mass/volume)on 07-26-2021 Cholesterol in HDL [Mass/Vol] 50 mg/dL >40 [facility] Work Phone: Comment on above: The drugs N-Acetylcy steine and Metamizole may falsely depress this assay. Reference Range HDL <40 mg/dL Low HDL Cholesterol HDL >or= 60 mg/dL High HDL Cholesterol Serum or plasma cholesterol in VLDL measurement (mass/volume)on 07-26-2021 Cholesterol in VLDL [Mass/Vol] 42 mg/dL 5-40 [facility] Work Phone: Serum or plasma creatinine m easurement (mass/volume)on 07-26-2021 Creatinine [Mass/Vol] 1.05 mg/dL 0.55-1.02 [facility] Work Phone: Comment on above: The validity of the calculated GFR & GFRAA in patients over 70 years has not been determined. Clinical correlation is essential. Serum or plasma low density lipoprotein (LDL) cholesterol measurement (mass/volume)on 07-26-2021 Cholesterol in LDL [Mass/Vol] 57 mg/dL 0-130 [facility] Work Phone: Serum or plasma urea nitroge n measurement (mass/volume)on 07-26-2021 Urea nitrogen [Mass/Vol] 16 mg/dL 7-18 [facility] Work Phone: Thin prep Papanicolaou smear with manual screeningon 07-26-2021 Thin prep Papanicolaou smear with manual screening 7 U/L 15-37 [facility] Work Phone: Thin prep Papanicolaou smear with manual screening 7 5-15 [facility] Work Phone: Absolute lymphocyte counton 07-03-2021 Lymphocytes Auto (Unsp spec) [#/Vol] 1.39 10*3/uL 0.83-4.51 [facility] Work Phone: Amorphous sediment detection in urine sediment by light microscopyon 07-03-2021 Amorphous sediment LM Ql (Urine sed) 1+ URATE [facility] Work Phone: Basophil percentageon 2021 Basophil percentage 0-5 SEEN /hpf [facility] Work Phone: Basophils/100 WBC (Bld) 0.3 % 0-1 [facility] Work Phone: Bilirubin [Mass/Vol] 0.60 mg/dL 0.20-1.00 [facility] Work Phone: Comment on above: For patients on eltr ombopag therapy, use of Dimension Nora TBIL is not recommended. Chloride [Moles/Vol] 104 mmol/L 98-107 [facility] Work Phone: Eosinophils/100 WBC (Bld) 1.7 % 0-5 [facility] Work Phone: Glucose [Mass/Vol] 103 mg/dL 74-106 [facility] Work Phone: Comment on above: Fasting Glucose resu lt from 100 to 125 mg/dL suggests IMPAIRED HOMEOSTASIS per A.D.A. criteria. Neutrophils (Bld) [#/Vol] 9.8 10*3/uL 2.0-7.7 [facility] Work Phone: Neutrophils/100 WBC (Bld) 81.7 % 47-70 [facility] Work Phone: Potassium [Moles/Vol] 4.0 mmol/L 3.5-5.1 [facility] Work Phone: Protein [Mass/Vol] 8.9 g/dL 6.4-8.2 [facility] Work Phone: Sodium [Moles/Vol] 135 mmol/L 136-145 [facility] Phone: WBC (Bld) [#/Vol] 12.0 10*3/uL 4.4-11.0 [facility] Work Phone: Bilirubin Test strip Ql (U)o n 07-03-2021 Bilirubin Ql (U) Negative Negative [facility] Work Phone: Blood erythrocytes count (nu mber/volume)on 07-03-2021 RBC (Bld) [#/Vol] 4.42 10*6/uL 4.2-5.4 [facility] Work Phone: Blood hemoglobin measurement (mass/volume)on 07-03-2021 Hemoglobin (Bld) [Mass/Vol] 14.3 g/dL 12.0-15.0 [facility] Work Phone: Blood lymphocytes/100 leukoc yteson 07-03-2021 Lymphocytes/100 WBC (Bld) 11.6 % 19-41 [facility] Work Phone: Blood monocytes/100 leukocyt eson 07-03-2021 Monocytes/100 WBC (Bld) 4.2 % 0-10 [facility] Work Phone: Blood platelet mean volumeon 07-03-2021 Platelet mean volume (Bld) [Entitic vol] 9.0 fL 6.2-12.0 [facility] Work Phone: Determination of erythrocyte mean corpuscular volume (MCV)on 07-03-2021 MCV (RBC) [Entitic vol] 94.1 fL 81-99 [facility] Work Phone: Direct bilirubinon 2 Bilirubin.direct [Mass/Vol] 0.11 mg/dL 0.00-0.30 [facility] Work Phone: Hematocrit Auto (Bld) [Volum e fraction]on 07-03-2021 Hematocrit (Bld) [Volume fraction] 41.6 % 37-47 [facility] Work Phone: Ketones Test strip Ql (U)on 07-03-2021 Ketones Ql (U) 5 mg/dl Negative [facility] Work Phone: Laboratory - Chemistry and C hemistry - challengeon 07-03-2021 ALP [Catalytic activity/Vol] 90 U/L 45-117 [facility] Work Phone: ALT [Catalytic activity/Vol] 25 U/L 13-56 [facility] Work Phone: CO2 [Moles/Vol] 23.0 mmol/L 21.0-32.0 [facility] Work Phone: Globulin (S) [Mass/Vol] 4.3 g/dL 2.2-4.2 [facility] Work Phone: Lipase [Catalytic activity/Vol] 49 U/L 73-393 [facility] Work Phone: Urea nitrogen/Creatinine [Mass ratio] 22.0 mg/mg 10-20 [facility] Work Phone: Laboratory - Hematology and Cell countson 07-03-2021 Erythrocyte distribution width (RBC) [Entitic vol] 50.7 fL 35.1-43.9 [facility] Work Phone: Erythrocyte distribution width (RBC) [Ratio] 14.6 % 11.6-14.6 [facility] Work Phone: Immature granulocytes/100 WBC (Bld) 0.500 % 0.0-0.9 [facility] Work Phone: Comment on above: IG% - Immature Granu locytes (promyelocytes, myelocytes and metamyelocytes) > 1% indicates that a LEFT SHIFT is Present. MCH (RBC) [Entitic mass] 32.4 pg 27.0-32.0 [facility] Work Phone: Nucleated RBC/100 WBC (Bld) [Ratio] 0 % 0-5 [facility] Work Phone: MCHC Auto (RBC) [Mass/Vol]on 07-03-2021 MCHC (RBC) [Mass/Vol] 34.4 g/dL 32-36 [facility] Work Phone: Mucus LM Ql (Urine sed)on Mucus Ql (Urine sed) 0 SEEN /hpf [facility] Work Phone: Nitrite Test strip Ql (U)on 07-03-2021 Nitrite Ql (U) Negative Negative [facility] Work Phone: No Panel Informationon 07-03 Estimated Creatinine Clearance Calc 45.23 ml/min [facility] Work Phone: Estimated GFR (MDRD) Amer 56 mL/min >60 [facility] Work Phone: Comment on above: GFR Calc Estimated GFR (MDRD) Non-Af Amer 47 mL/min >60 [facility] Work Phone: Comment on above: Non- GFR Calc Platelets bldon 07-03-2021 Platelets (Bld) [#/Vol] 496 10*3/uL 150-450 [facility] Work Phone: Protein Test strip Ql (U)on 07-03-2021 Protein Ql (U) 15 mg/dl Negative [facility] Work Phone: Serum or plasma albumin jamey urement (mass/volume)on 07-03-2021 Albumin [Mass/Vol] 4.6 g/dL 3.2-5.0 [facility] Work Phone: Serum or plasma calcium jamey urement (mass/volume)on 07-03-2021 Calcium [Mass/Vol] 8.7 mg/dL 8.5-10.1 [facility] Work Phone: Serum or plasma creatinine m easurement (mass/volume)on 07-03-2021 Creatinine [Mass/Vol] 1.23 mg/dL 0.55-1.02 [facility] Work Phone: Comment on above: The validity of the calculated GFR & GFRAA in patients over 70 years has not been determined. Clinical correlation is essential. Serum or plasma urea nitroge n measurement (mass/volume)on 07-03-2021 Urea nitrogen [Mass/Vol] 27 mg/dL 7-18 [facility] Work Phone: Squamous epithelial cells de tection in urine sediment by light microscopyon 07-03-2021 Epithelial cells.squamous LM Ql (Urine sed) 10-25 SEEN /hpf [facility] Work Phone: Thin prep Papanicolaou smear with manual screeningon 07-03-2021 Thin prep Papanicolaou smear with manual screening 14 U/L 15-37 [facility] Work Phone: Thin prep Papanicolaou smear with manual screening 8 5-15 [facility] Work Phone: Urine blood detectionon 06-22 RBC Ql (U) Negative Negative [facility] Work Phone: RBC Ql (U) 0 SEEN /hpf [facility] Work Phone: Urine clarityon 07-03-2021 Clarity (U) Sl. Cloudy Clear [facility] Work Phone: Urine color determinationon 07-03-2021 Color (U) Yellow Yellow [facility] Work Phone: Urine glucose detectionon Glucose Ql (U) Normal mg/dl Normal [facility] Work Phone: Urine leukocyte esterase det ection by dipstickon 07-03-2021 Leukocyte esterase Test strip Ql (U) 25 /ul Negative [facility] Work Phone: Urine pHon 07-03-2021 pH (U) 5.0 [pH] [facility] Work Phone: Urine sediment bacteria coun t by microscopy (number/high power field)on 07-03-2021 Bacteria LM.HPF (Urine sed) [#/Area] 0 /[HPF] None Seen [facility] Work Phone: Urine specific gravity measu rementon 07-03-2021 Specific gravity (U) [Rel density] 1.020 [facility] Work Phone: Urobilinogen Auto test strip Ql (U)on 07-03-2021 Urobilinogen Ql (U) Normal mg/dl Normal [facility] Work Phone: SARS-COV-2,NAAon 01-24-2020 SARS-COV-2, JUAN Not Detected Normal [facility] Comment on above: Result Comment: Refe rence range: Not Detected (NOTE) This nucleic acid amplification test was developed and its performance characteristics determined by [employer]. Nucleic acid amplification tests include PCR and [...] 01-23-2020 Creatinine [Mass/Vol] 1.17 mg/dL High 0.52-1.04 [facility] Comment on above: Performed By: #### A CBC, ITROT, CMPF #### Testing performed at [address] [place] [address] EST. GFR, >60 Normal [facility] Comment on above: Performed By: #### A CBC, ITROT, CMPF #### Testing performed at [address] [address] EST. GFR,Non 50 ml/min/1.73sq.m Normal [facility] Comment on above: Performed By: #### A CBCAIMEEOT, CMPF #### Testing performed at [address] [address] GFR/1.73 sq M predicted among non-blacks MDRD (S/P/Bld) [Vol rate/Area] Average GFR for 60-69 years old = 85. 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 Kidney failure, GFR = <15. The GFR estimate is not adjusted for extreme body surface area or acute process, nor has it been validated for women or ethnic groups other than and . Performed By: #### A CBC, ITROT, CMPF #### Testing performed at [address] [address] Urea nitrogen [Mass/Vol] 22 mg/dL High 7-20 [facility] Comment on above: Performed By: #### A CBC, ITROT, CMPF #### Testing performed at [address] [address] Anion gap [Moles/Vol] 14 mmol/L Normal 8-16 [facility] Comment on above: Performed By: #### A CBC ITROT, CMPF #### Testing performed at [address] [address] Calcium [Mass/Vol] 9.1 mg/dL Normal 8.4-10.2 [facility] Comment on above: Performed By: #### A CBC, ITROT, CMPF #### Testing performed at [address] [address] Chloride [Moles/Vol] 101 mmol/L Normal 98-107 [facility] Comment on above: Performed By: #### A CBC, ITROT, CMPF #### Testing performed at [address] [address] CO2 [Moles/Vol] 22 mmol/L Normal 22-30 [facility] Comment on above: Performed By: #### A CBC, ITROT, CMPF #### Testing performed at [address] [address] Glucose [Mass/Vol] 75 mg/dL Normal 70-100 [facility] Comment on above: Result Comment: NORMAL <100 mg/dL PREDIABETES 101-126 mg/dL DIABETES 126 mg/dL or higher Performed By: #### A CBC, ITROT, CMPF #### Testing performed at [address] [address] Potassium [Moles/Vol] 4.6 mmol/L Normal 3.5-5.1 [facility] Comment on above: Performed By: #### A CBC, ITROT, CMPF #### Testing performed at [address] [address] Sodium [Moles/Vol] 137 mmol/L Normal 136-145 [facility] Comment on above: Performed By: #### A CBC, ITROT, CMPF #### Testing performed at [address] [address] CBCon 01-23-2020 ABSOLUTE BAS 0.1 10*3/uL Normal 0.0-0.2 [facility] Comment on above: Performed By: #### A CBC, PT, PTT ####Testing performed at [address] [address] ABSOLUTE EOS 0.20 10*3/uL Normal 0.0-0.7 [facility] Comment on above: Performed By: #### A CBC, PT, PTT ####Testing performed at [address] [address] ABSOLUTE NEUTROPHIL COUNT 4.6 10*3/uL Normal 1.4-6.5 [facility] Comment on above: Performed By: #### A CBC, PT, PTT ####Testing performed at [address] [address] Basophils/100 WBC (Bld) 1.2 % Normal 0.0-2.0 [facility] Comment on above: Performed By: #### A CBC, PT, PTT ####Testing performed at [address] [address] DTYPE AUTO DIFF Normal [facility] Comment on above: Performed By: #### A CBC, PT, PTT ####Testing performed at [address] [address] Eosinophils/100 WBC (Bld) 2.6 % Normal 0.0-11.0 [facility] Comment on above: Performed By: #### A CBC, PT, PTT ####Testing performed at [address] [address] Lymphocytes (Bld) [#/Vol] 2.20 10*3/uL Normal 1.2-3.4 [facility] Comment on above: Performed By: #### A CBC, PT, PTT ####Testing performed at [address] [address] Lymphocytes/100 WBC (Bld) 28.5 % Normal 20.0-55.0 [facility] Comment on above: Performed By: #### A CBC, PT, PTT ####Testing performed at [address] [address] Monocytes (Bld) [#/Vol] 0.6 10*3/uL Normal 0.0-0.7 [facility] Comment on above: Performed By: #### A CBC, PT, PTT ####Testing performed at [address] [address] Monocytes/100 WBC (Bld) 8.2 % Normal 0.0-10.0 [facility] Comment on above: Performed By: #### A CBC, PT, PTT ####Testing performed at [address] [address] Neutrophils/100 WBC (Bld) 59.5 % Normal 37.0-75.0 [facility] Comment on above: Performed By: #### A CBC, PT, PTT ####Testing performed at [address] [address] Erythrocyte distribution width (RBC) [Ratio] 15.6 % High 11.5-14.5 [facility] Comment on above: Performed By: #### A CBC, PT, PTT ####Testing performed at [address] [address] Hematocrit (Bld) [Volume fraction] 37.6 % Normal 36.0-48.0 [facility] Comment on above: Performed By: #### A CBC, PT, PTT ####[place] [address] Hemoglobin (Bld) [Mass/Vol] 12.2 g/dL Normal 12.0-16.0 [facility] Comment on above: Performed By: #### A CBC, PT, PTT ####[place] [address] MCH (RBC) [Entitic mass] 31.0 pg Normal 26.0-35.0 [facility] Comment on above: Performed By: #### A CBC, PT, PTT ####[place] [address] MCHC (RBC) [Mass/Vol] 32.5 g/dL Normal 27.0-37.0 [facility] Comment on above: Performed By: #### A CBC, PT, PTT ####[place] [address] MCV (RBC) [Entitic vol] 95.3 fL Normal 80.0-100.0 [facility] Comment on above: Performed By: #### A CBC, PT, PTT ####[place] [address] Platelet mean volume (Bld) [Entitic vol] 6.7 fL Low 7.4-11.0 [facility] Comment on above: Performed By: #### A CBC, PT, PTT ####Testing performed at [place] [id number] Platelets (Bld) [#/Vol] 479 10*3/uL High 130.0-400. 0 [facility] Comment on above: Performed By: #### A CBC, PT, PTT ####Testing performed at [place] [id number] RBC (Bld) [#/Vol] 3.94 10*6/uL Low 4.0-5.4 [facility] Comment on above: Performed By: #### A CBC, PT, PTT ####Testing performed at [address] [address] WBC (Bld) [#/Vol] 7.8 10*3/uL Normal 3.6-11.0 [facility] Comment on above: Performed By: #### A CBC, PT, PTT ####Testing performed at [address] [address] PROTIMEon 01-23-2020 INR Coag (PPP) [Relative time] 0.91 {INR} Normal 0.88-1.12 [facility] Comment on above: Result Comment: 2.0-3.0 THERAPEUTIC RANGE 2.5-3.5 MECHANICAL VALVE RANGE Performed By: #### A CBC, PT, PTT ####Testing performed at [address] [address] PT Coag (PPP) [Time] 12.2 s Normal 11.8-14.4 [facility] Comment on above: Performed By: #### A CBC, PT, PTT ####Testing performed at [address] [address] PTTon 01-23-2020 aPTT Coag (Bld) [Time] 25.9 s Normal 22.4-34.7 [facility] Comment on above: Result Comment: CARDIAC AND PE/DVT THERAPUTIC RANGE 69-97 SEC VASCULAR/THREATENED LIMB THERAPUTIC RANGE 80-112 SEC Performed By: #### A CBC, ITROT, CMPF #### Testing performed at [address] [address] LARGE JOINT/BURSA INJECTION AND/OR ASPIRATION: R subacromial [...] patient was prepped with Betadine and alcohol. [facility] CELIAC DISEASE COMP PANELon 10-17-2019 DEAMINATED GLIADIN AB, IGA 7 units Normal 0-19 [facility] Comment on above: Result Comment: (NOT E) Negative 0 - 19 Weak Positive 20 - 30 Moderate to Strong Positive >30 Performed By: #### F X #### Testing performed at [address] [address] #### LCELCP #### [place] [address] DEAMINATED GLIADIN AB, IGG 1 units Normal 0-19 [facility] Comment on above: Result Comment: (NOT E) Negative 0 - 19 Weak Positive 20 - 30 Moderate to Strong Positive >30 Performed By: #### F X #### Testing performed at [address] [address] #### LCELCP #### Testing performed at [address] [address] ENDOMYSIAL AB IGA Negative Normal Negative [facility] Comment on above: Performed By: #### F X #### Testing performed at [address] [address] #### LCELCP #### Testing performed at [address] [address] TTG- IGA <2 Normal 0-3 [facility] Comment on above: Result Comment: (NOT E) Negative 0 - 3 Weak Positive 4 - 10 Positive >10 Tissue Transglutaminase (tTG) has been identified as the endomysial antigen. Studies have demonstr- ated that endomysial IgA antibodies have over 99% specificity for gluten sensitive enteropathy. Performed By: #### F X #### Testing performed at [address] [address] #### LCELCP #### Testing performed at [address] [address] TTG-IGG <2 Normal 0-5 [facility] Comment on above: Result Comment: (NOT E) Negative 0 - 5 Weak Positive 6 - 9 Positive >9 Performed By: #### F X #### Testing performed at [address] [address] #### LCELCP #### [place] [address] IgA [Mass/Vol] 201 mg/dL Normal 87-352 [facility] Comment on above: Result Comment: PERF ORMED AT [facility] Performed By: #### F X #### [place] [address] #### LCELCP #### Testing performed at [address] [address] CBCon 10-16-2019 ABSOLUTE BAS 0.1 10*3/uL Normal 0.0-0.2 [facility] Comment on above: Performed By: #### A CBC, RENF, MG, RTSH, T42 ####Testing performed at [place] [id number] ABSOLUTE EOS 0.30 10*3/uL Normal 0.0-0.7 [facility] Comment on above: Performed By: #### A CBC, RENF, MG, RTSH, T42 ####Testing performed at [address] [address] ABSOLUTE NEUTROPHIL COUNT 4.3 10*3/uL Normal 1.4-6.5 [facility] Comment on above: Performed By: #### A CBC, RENF, MG, RTSH, T42 ####Testing performed at [place] [id number] Basophils/100 WBC (Bld) 0.8 % Normal 0.0-2.0 [facility] Comment on above: Performed By: #### A CBC, RENF, MG, RTSH, T42 ####Testing performed at [address] [address] DTYPE AUTO DIFF Normal [facility] Comment on above: Performed By: #### A CBC, RENF, MG, RTSH, T42 ####Testing performed at [address] [address] Eosinophils/100 WBC (Bld) 4.2 % Normal 0.0-11.0 [facility] Comment on above: Performed By: #### A CBC, RENF, MG, RTSH, T42 ####Testing performed at [address] [address] Lymphocytes (Bld) [#/Vol] 2.60 10*3/uL Normal 1.2-3.4 [facility] Comment on above: Performed By: #### A CBC, RENF, MG, RTSH, T42 ####Testing performed at [address] [address] Lymphocytes/100 WBC (Bld) 32.8 % Normal 20.0-55.0 [facility] Comment on above: Performed By: #### A CBC, RENF, MG, RTSH, T42 ####Testing performed at [address] [address] Monocytes (Bld) [#/Vol] 0.7 10*3/uL Normal 0.0-0.7 [facility] Comment on above: Performed By: #### A CBC, RENF, MG, RTSH, T42 ####Testing performed at [address] [address] Monocytes/100 WBC (Bld) 8.3 % Normal 0.0-10.0 [facility] Comment on above: Performed By: #### A CBC, RENF, MG, RTSH, T42 ####Testing performed at [address] [address] Neutrophils/100 WBC (Bld) 53.9 % Normal 37.0-75.0 [facility] Comment on above: Performed By: #### A CBC, RENF, MG, RTSH, T42 ####Testing performed at [address] [address] Erythrocyte distribution width (RBC) [Ratio] 15.7 % High 11.5-14.5 [facility] Comment on above: Performed By: #### A CBC, RENF, MG, RTSH, T42 ####Testing performed at [address] [address] Hematocrit (Bld) [Volume fraction] 28.4 % Low 36.0-48.0 [facility] Comment on above: Performed By: #### A CBC, RENF, MG, RTSH, T42 ####Testing performed at [address] [address] Hemoglobin (Bld) [Mass/Vol] 9.6 g/dL Low 12.0-16.0 [facility] Comment on above: Performed By: #### A CBC, RENF, MG, RTSH, T42 ####Testing performed at [address] [address] MCH (RBC) [Entitic mass] 32.2 pg Normal 26.0-35.0 [facility] Comment on above: Performed By: #### A CBC, RENF, MG, RTSH, T42 ####Testing performed at [address] [address] MCHC (RBC) [Mass/Vol] 33.9 g/dL Normal 27.0-37.0 [facility] Comment on above: Performed By: #### A CBC, RENF, MG, RTSH, T42 ####Testing performed at [address] [address] MCV (RBC) [Entitic vol] 95.2 fL Normal 80.0-100.0 [facility] Comment on above: Performed By: #### A CBC, RENF, MG, RTSH, T42 ####Testing performed at [address] [address] Platelet mean volume (Bld) [Entitic vol] 7.3 fL Low 7.4-11.0 [facility] Comment on above: Performed By: #### A CBC, RENF, MG, RTSH, T42 ####Testing performed at [address] [address] Platelets (Bld) [#/Vol] 283 10*3/uL Normal 130.0-400. 0 [facility] Comment on above: Performed By: #### A CBC, RENF, MG, RTSH, T42 ####Testing performed at [address] [address] RBC (Bld) [#/Vol] 2.99 10*6/uL Low 4.0-5.4 [facility] Comment on above: Performed By: #### A CBC, RENF, MG, RTSH, T42 ####Testing performed at [address] [address] WBC (Bld) [#/Vol] 8.0 10*3/uL Normal 3.6-11.0 [facility] Comment on above: Performed By: #### A CBC, RENF, MG, RTSH, T42 ####Testing performed at [address] [address] CBC, EDIF, PLATELETon 2019 ABSOLUTE BASOPHIL COUNT 0.1 10*3/uL 0 - 0.2 10*3/uL [facility] youcalc Basophils/100 WBC (Bld) 0.8 % 0 - 2 % [facility]calc Differential cell count method Nom (Bld) AUTO DIFF % [facility]calc Eosinophils (Bld) [#/Vol] 0.30 10*3/uL 0 - 0.7 10*3/uL [facility]calc Eosinophils/100 WBC (Bld) 4.2 % 0 - 11 % [facility]calc Erythrocyte distribution width (RBC) [Ratio] 15.7 % High 11.5 - 14.5 % [facility]calc Hematocrit (Bld) [Volume fraction] 28.4 % Low 36 - 48 % [facility]calc Hemoglobin (Bld) [Mass/Vol] 9.6 g/dL Low [facility] youcalc Lymphocytes (Bld) [#/Vol] 2.60 10*3/uL 1.2 - 3.4 10*3/uL [facility] Lymphocytes/100 WBC (Bld) 32.8 % 20 - 55 % [facility] MCH (RBC) [Entitic mass] 32.2 pg 26 - 35 PG [facility] MCHC (RBC) [Mass/Vol] 33.9 g/dL [facility] MCV (RBC) [Entitic vol] 95.2 fL [facility] Monocytes (Bld) [#/Vol] 0.7 10*3/uL 0 - 0.7 10*3/uL [facility] Monocytes/100 WBC (Bld) 8.3 % 0 - 10 % [facility] Neutrophils (Bld) [#/Vol] 4.3 10*3/uL 1.4 - 6.5 10*3/uL [facility] Neutrophils/100 WBC (Bld) 53.9 % 37 - 75 % [facility] Platelet mean volume (Bld) [Entitic vol] 7.3 fL Low [facility] Platelets (Bld) [#/Vol] 283 10*3/uL 130 - 400 10*3/uL [facility] RBC (Bld) [#/Vol] 2.99 10*6/uL Low 4 - 5.4 10*6/uL [facility] WBC (Bld) [#/Vol] 8.0 10*3/uL 3.6 - 11 10*3/uL [facility] FREE T4on 10-16-2019 Free T4 [Mass/Vol] 0.80 ng/dL Normal 0.61-1.12 [facility] Comment on above: Performed By: #### A CBC, RENF, MG, RTSH, T42 ####Testing performed at [place] [id number] ISTAT TROPONIN Ion 0 Troponin I.cardiac [Mass/Vol] 0.02 ng/mL Normal 0-0.08 [facility] Comment on above: Performed By: #### I TROT ####Testing performed at [address] [address] Troponin I.cardiac [Mass/Vol] 0.02 ng/mL Normal 0-0.08 [facility] Comment on above: Performed By: #### I TROT ####Testing performed at [place] [id number] MAGNESIUMon 10-16-2019 Magnesium [Mass/Vol] 1.5 mg/dL Low 1.6-2.3 [facility] Comment on above: Performed By: #### A CBC, RENF, MG, RTSH, T42 ####Testing performed at [address] [address] Magnesium [Mass/Vol] 1.5 mg/dL Low [facility] MRSA SCREENon 10-16-2019 MRSA DNA JUAN+probe Ql (Unsp spec) Negative Normal NEGATIVE [facility] Comment on above: Result Comment: TEST ING PERFORMED BY PCR Performed By: #### M RSAST ####Testing performed at [address] [address] Otheron 10-16-2019 Interpretation and review of laboratory results Abnormal [facility]calc RENAL FUNCTION PANELon 10-15 Albumin [Mass/Vol] 3.3 G/dl Low 3.5 - 5 G/dl [facility] Calcium [Mass/Vol] 7.9 mg/dL Low [facility] Chloride [Moles/Vol] 106 mmol/L [facility] Plurality [facility] CO2 [Moles/Vol] 25 mmol/L [facility] youcalc Creatinine [Mass/Vol] 0.96 mg/dL [facility] youcalc GFR/1.73 sq M predicted among blacks MDRD (S/P/Bld) [Vol rate/Area] mL/min/{1.73_m2} ml/min/1.7 3sq.m [facility] youcalc GFR/1.73 sq M predicted among non-blacks MDRD (S/P/Bld) [Vol rate/Area] Average GFR for 60-69 years old = 85. [facility] Comment on above: Chronic Kidney disea se, GFR = <60. Kidney failure, GFR = <15. The GFR estimate is not adjusted for extreme body surface area or acute process, nor has it been validated for women or ethnic groups other than and . GFR/1.73 sq M predicted among non-blacks MDRD (S/P/Bld) [Vol rate/Area] mL/min/{1.73_m2} ml/min/1.7 3sq.m [facility] Glucose post fast [Mass/Vol] 99 mg/dL [facility] Comment on above: NORMAL <100 mg/dL PREDIABETES 101-126 mg/dL DIABETES 126 mg/dL or higher Phosphate [Mass/Vol] 4.0 mg/dL [facility] Potassium [Moles/Vol] 4.1 mmol/L [facility] Sodium [Moles/Vol] 138 mmol/L [facility] Urea nitrogen [Mass/Vol] 20 mg/dL [facility] RENAL PANEL,FASTINGon 2019 Albumin [Mass/Vol] 3.3 G/dl Low 3.5-5.0 [facility] Comment on above: Performed By: #### A CBC, RENF, MG, RTSH, T42 ####[place] [address] Creatinine [Mass/Vol] 0.96 mg/dL Normal 0.52-1.04 [facility] Comment on above: Performed By: #### A CBC, RENF, MG, RTSH, T42 ####Testing performed at [place] [id number] EST. GFR, >60 Normal [facility] Comment on above: Performed By: #### A CBC, RENF, MG, RTSH, T42 ####Testing performed at [place] [id number] EST. GFR,Non >60 Normal [facility] Comment on above: Performed By: #### A CBC, RENF, MG, RTSH, T42 ####Testing performed at [place] [id number] GFR/1.73 sq M predicted among non-blacks MDRD (S/P/Bld) [Vol rate/Area] Average GFR for 60-69 years old = 85. 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 Kidney failure, GFR = <15. The GFR estimate is not adjusted for extreme body surface area or acute process, nor has it been validated for women or ethnic groups other than and . Performed By: #### A CBC, RENF, MG, RTSH, T42 ####[place] [address] PHOSPHOROUS 4.0 MG/DL Normal 2.5-4.5 [facility] Comment on above: Performed By: #### A CBC, RENF, MG, RTSH, T42 ####Testing performed at [address] [address] Urea nitrogen [Mass/Vol] 20 mg/dL Normal 7-20 [facility] Comment on above: Performed By: #### A CBC, RENF, MG, RTSH, T42 ####Testing performed at [address] [address] Calcium [Mass/Vol] 7.9 mg/dL Low 8.4-10.2 [facility] Comment on above: Performed By: #### A CBC, RENF, MG, RTSH, T42 ####Testing performed at [address] [address] Chloride [Moles/Vol] 106 mmol/L Normal 98-107 [facility] Comment on above: Performed By: #### A CBC, RENF, MG, RTSH, T42 ####Testing performed at [address] [address] CO2 [Moles/Vol] 25 mmol/L Normal 22-30 [facility] Comment on above: Performed By: #### A CBC, RENF, MG, RTSH, T42 ####Testing performed at [address] [address] Glucose [Mass/Vol] 99 mg/dL Normal 70-100 [facility] Comment on above: Result Comment: NORMAL <100 mg/dL PREDIABETES 101-126 mg/dL DIABETES 126 mg/dL or higher Performed By: #### A CBC, RENF, MG, RTSH, T42 ####Testing performed at [address] [address] Potassium [Moles/Vol] 4.1 mmol/L Normal 3.5-5.1 [facility] Comment on above: Performed By: #### A CBC, RENF, MG, RTSH, T42 ####Testing performed at [address] [address] Sodium [Moles/Vol] 138 mmol/L Normal 136-145 [facility] Comment on above: Performed By: #### A CBC, RENF, MG, RTSH, T42 ####[place] [address] SCREEN: MRSA ONLY, NARES (IS OLATION SCREEN)on 10-16-2019 MRSA isol Org specific cx Ql (Nose) Negative NEGATIVE [facility] STAPHYOCOCCUS AUREUS BY PCR Negative NEGATIVE [facility] Comment on above: TESTING PERFORMED BY PCR T4 FREEon 10-16-2019 Free T4 [Mass/Vol] 0.80 ng/dL [facility] TROPONINon 10-16-2019 Troponin I.cardiac [Mass/Vol] 0.02 ng/mL 0 - 0.08 ng/mL [facility] Troponin I.cardiac [Mass/Vol] 0.02 ng/mL 0 - 0.08 ng/mL [facility] TSH W/FT4 REFLEXon 0 TSH Qn 5.779 m[IU]/L High [facility] TSH,REFLEX FREE T4on 020 TSH,REFLEX FREE T4 5.779 uIU/ML High 0.45-5.33 [facility] Comment on above: Performed By: #### A CBC, RENF, MG, RTSH, T42 ####[place] [address] CBCon 10-15-2019 ABSOLUTE BAS 0.1 10*3/uL Normal 0.0-0.2 [facility] Comment on above: Performed By: #### A CBC, ITROT, CMPF #### [place] [address] ABSOLUTE EOS 0.40 10*3/uL Normal 0.0-0.7 [facility] Comment on above: Performed By: #### A CBC, ITROT, CMPF #### [place] [address] ABSOLUTE NEUTROPHIL COUNT 8.2 10*3/uL High 1.4-6.5 [facility] Comment on above: Performed By: #### A CBC, ITROT, CMPF #### [place] [address] Basophils/100 WBC (Bld) 0.5 % Normal 0.0-2.0 [facility] Comment on above: Performed By: #### A CBC, ITROT, CMPF #### Testing performed at [address] [address] DTYPE AUTO DIFF Normal [facility] Comment on above: Performed By: #### A CBC, ITROT, CMPF #### Testing performed at [address] [address] Eosinophils/100 WBC (Bld) 3.2 % Normal 0.0-11.0 [facility] Comment on above: Performed By: #### A CBC, ITROT, CMPF #### Testing performed at [address] [address] Lymphocytes (Bld) [#/Vol] 2.20 10*3/uL Normal 1.2-3.4 [facility] Comment on above: Performed By: #### A CBC, ITROT, CMPF #### Testing performed at [address] [address] Lymphocytes/100 WBC (Bld) 19.1 % Low 20.0-55.0 [facility] Comment on above: Performed By: #### A CBC, ITROT, CMPF #### Testing performed at [address] [address] Monocytes (Bld) [#/Vol] 0.7 10*3/uL Normal 0.0-0.7 [facility] Comment on above: Performed By: #### A CBC, ITROT, CMPF #### Testing performed at [address] [address] Monocytes/100 WBC (Bld) 6.0 % Normal 0.0-10.0 [facility] Comment on above: Performed By: #### A CBC, ITROT, CMPF #### Testing performed at [address] [address] Neutrophils/100 WBC (Bld) 71.2 % Normal 37.0-75.0 [facility] Comment on above: Performed By: #### A CBC, ITROT, CMPF #### Testing performed at [address] [address] Erythrocyte distribution width (RBC) [Ratio] 15.8 % High 11.5-14.5 [facility] Comment on above: Performed By: #### A CBCRAJINDER CMPF #### Testing performed at [address] [address] Hematocrit (Bld) [Volume fraction] 34.1 % Low 36.0-48.0 [facility] Comment on above: Performed By: #### A CBCRAJINDER CMPF #### Testing performed at [address] [address] Hemoglobin (Bld) [Mass/Vol] 11.4 g/dL Low 12.0-16.0 [facility] Comment on above: Performed By: #### A CBCRAJINDER CMPF #### Testing performed at [address] [address] MCH (RBC) [Entitic mass] 31.7 pg Normal 26.0-35.0 [facility] Comment on above: Performed By: #### A CBCRAJINDER CMPF #### Testing performed at [address] [address] MCHC (RBC) [Mass/Vol] 33.4 g/dL Normal 27.0-37.0 [facility] Comment on above: Performed By: #### A CBCRAJINDER CMPF #### Testing performed at [address] [address] MCV (RBC) [Entitic vol] 94.9 fL Normal 80.0-100.0 [facility] Comment on above: Performed By: #### A CBCRAJINDER CMPF #### Testing performed at [address] [address] Platelet mean volume (Bld) [Entitic vol] 7.5 fL Normal 7.4-11.0 [facility] Comment on above: Performed By: #### A CBCRAJINDER CMPF #### Testing performed at [address] [address] Platelets (Bld) [#/Vol] 372 10*3/uL Normal 130.0-400. 0 [facility] Comment on above: Performed By: #### A CBC, ITROT, CMPF #### Testing performed at [address] [address] RBC (Bld) [#/Vol] 3.60 10*6/uL Low 4.0-5.4 [facility] Comment on above: Performed By: #### A CBC, ITROT, CMPF #### Testing performed at [address] [address] WBC (Bld) [#/Vol] 11.4 10*3/uL High 3.6-11.0 [facility] Comment on above: Performed By: #### A CBC, ITROT, CMPF #### Testing performed at [address] [address] CBC, EDIF, PLATELETon 2019 ABSOLUTE BASOPHIL COUNT 0.1 10*3/uL 0 - 0.2 10*3/uL [facility] Basophils/100 WBC (Bld) 0.5 % 0 - 2 % [facility] Differential cell count method Nom (Bld) AUTO DIFF % [facility] Eosinophils (Bld) [#/Vol] 0.40 10*3/uL 0 - 0.7 10*3/uL [facility] Eosinophils/100 WBC (Bld) 3.2 % 0 - 11 % [facility] Erythrocyte distribution width (RBC) [Ratio] 15.8 % High 11.5 - 14.5 % [facility] Hematocrit (Bld) [Volume fraction] 34.1 % Low 36 - 48 % [facility] Hemoglobin (Bld) [Mass/Vol] 11.4 g/dL Low [facility] Lymphocytes (Bld) [#/Vol] 2.20 10*3/uL 1.2 - 3.4 10*3/uL [facility] Lymphocytes/100 WBC (Bld) 19.1 % Low 20 - 55 % [facility] MCH (RBC) [Entitic mass] 31.7 pg 26 - 35 PG [facility] MCHC (RBC) [Mass/Vol] 33.4 g/dL [facility] MCV (RBC) [Entitic vol] 94.9 fL [facility] Monocytes (Bld) [#/Vol] 0.7 10*3/uL 0 - 0.7 10*3/uL [facility] Monocytes/100 WBC (Bld) 6.0 % 0 - 10 % [facility] youcalc Neutrophils (Bld) [#/Vol] 8.2 10*3/uL High 1.4 - 6.5 10*3/uL [facility] youcalc Neutrophils/100 WBC (Bld) 71.2 % 37 - 75 % [facility] Platelet mean volume (Bld) [Entitic vol] 7.5 fL [facility] Platelets (Bld) [#/Vol] 372 10*3/uL 130 - 400 10*3/uL [facility]calc RBC (Bld) [#/Vol] 3.60 10*6/uL Low 4 - 5.4 10*6/uL [facility]calc WBC (Bld) [#/Vol] 11.4 10*3/uL High 3.6 - 11 10*3/uL [facility] CMP FASTINGon 10-15-2019 A:G RATIO 1.5 RATIO Normal 1.3-2.2 [facility] Comment on above: Performed By: #### A CBC, ITROT, CMPF #### Testing performed at [address] [address] Albumin [Mass/Vol] 4.1 G/dl Normal 3.5-5.0 [facility] Comment on above: Performed By: #### A CBC, ITROT, CMPF #### Testing performed at [address] [address] ALP [Catalytic activity/Vol] 50 U/L Normal 38-126 [facility] Comment on above: Performed By: #### A CBC, ITROT, CMPF #### Testing performed at [address] [address] ALT [Catalytic activity/Vol] 16 U/L Normal 14-54 [facility] Comment on above: Performed By: #### A CBC, ITROT, CMPF #### Testing performed at [address] [address] AST [Catalytic activity/Vol] 16 U/L Normal 15-41 [facility] Comment on above: Performed By: #### A CBC, ITROT, CMPF #### Testing performed at [address] [address] Bilirubin [Mass/Vol] 0.4 mg/dL Normal 0.2-1.2 [facility] Comment on above: Performed By: #### A CBC ITROT CMPF #### Testing performed at [address] [address] Creatinine [Mass/Vol] 1.58 mg/dL High 0.52-1.04 [facility] Comment on above: Performed By: #### A CBC ITROT CMPF #### Testing performed at [address] [address] EST. GFR, 42 ml/min/1.73sq.m [facility] Comment on above: Performed By: #### A CBCAIMEEOT CMPF #### Testing performed at [address] [address] EST. GFR,Non 35 ml/min/1.73sq.m [facility] Comment on above: Performed By: #### A CBC ITROT CMPF #### Testing performed at [address] [address] GFR/1.73 sq M predicted among non-blacks MDRD (S/P/Bld) [Vol rate/Area] Average GFR for 60-69 years old = 85. 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 Kidney failure, GFR = <15. The GFR estimate is not adjusted for extreme body surface area or acute process, nor has it been validated for women or ethnic groups other than and . Performed By: #### A CBC ITROT, CMPF #### Testing performed at [address] [address] Protein [Mass/Vol] 6.8 g/dL Normal 6.3-8.2 [facility] Comment on above: Performed By: #### A CBC ITROT CMPF #### Testing performed at [address] [address] Urea nitrogen [Mass/Vol] 31 mg/dL High 7-20 [facility] Comment on above: Performed By: #### A CBC ITROT CMPF #### Testing performed at [address] [place] [address] Calcium [Mass/Vol] 8.6 mg/dL Normal 8.4-10.2 [facility] Comment on above: Performed By: #### A RAJINDER ESPINOSA CMPF #### Testing performed at [address] [address] Chloride [Moles/Vol] 100 mmol/L Normal 98-107 [facility] Comment on above: Performed By: #### A CBCRAJINDER CMPF #### Testing performed at [address] [address] CO2 [Moles/Vol] 22 mmol/L Normal 22-30 [facility] Comment on above: Performed By: #### A RAJINDER ESPINOSA CMPF #### Testing performed at [address] [address] Glucose [Mass/Vol] 78 mg/dL Normal 70-100 [facility] Comment on above: Result Comment: NORMAL <100 mg/dL PREDIABETES 101-126 mg/dL DIABETES 126 mg/dL or higher Performed By: #### A CBCRAJINDER CMPF #### Testing performed at [address] [address] Potassium [Moles/Vol] 4.5 mmol/L Normal 3.5-5.1 [facility] Comment on above: Performed By: #### A CBCRAJINDER CMPF #### Testing performed at [address] [address] Sodium [Moles/Vol] 132 mmol/L Low 136-145 [facility] Comment on above: Performed By: #### A CBCAIMEEOT CMPF #### Testing performed at [address] [address] COMPREHENSIVE METABOLIC PANE [place] 10-15-2019 Albumin [Mass/Vol] 4.1 G/dl 3.5 - 5 G/dl [facility] Albumin/Globulin [Mass ratio] 1.5 {ratio} [facility] ALP [Catalytic activity/Vol] 50 U/L [facility] ALT [Catalytic activity/Vol] 16 U/L [facility] AST [Catalytic activity/Vol] 16 U/L [facility] Bilirubin [Mass/Vol] 0.4 mg/dL [facility] Calcium [Mass/Vol] 8.6 mg/dL [facility] Chloride [Moles/Vol] 100 mmol/L [facility] CO2 [Moles/Vol] 22 mmol/L [facility] Creatinine [Mass/Vol] 1.58 mg/dL High [facility] GFR/1.73 sq M predicted among blacks MDRD (S/P/Bld) [Vol rate/Area] 42 mL/min/{1.73_m2} ml/min/1.7 3sq.m [facility] GFR/1.73 sq M predicted among non-blacks MDRD (S/P/Bld) [Vol rate/Area] Average GFR for 60-69 years old = 85. [facility] Comment on above: Chronic Kidney disea se, GFR = <60. Kidney failure, GFR = <15. The GFR estimate is not adjusted for extreme body surface area or acute process, nor has it been validated for women or ethnic groups other than and . GFR/1.73 sq M predicted among non-blacks MDRD (S/P/Bld) [Vol rate/Area] 35 mL/min/{1.73_m2} ml/min/1.7 3sq.m [facility] Glucose post fast [Mass/Vol] 78 mg/dL [facility] Comment on above: NORMAL <100 mg/dL PREDIABETES 101-126 mg/dL DIABETES 126 mg/dL or higher Potassium [Moles/Vol] 4.5 mmol/L [facility] youcalc Protein [Mass/Vol] 6.8 g/dL [facility] Sodium [Moles/Vol] 132 mmol/L Low [facility]calc Urea nitrogen [Mass/Vol] 31 mg/dL High [facility] FAX REQUESTon 10-15-2019 FAX TO [phone] Normal [facility] Comment on above: Performed By: #### F X #### Testing performed at [facility] [address] [place] [address] #### LCELCP #### Testing performed at [facility] [address] [place] [address] [address] [place] [address] ISTAT TROPONIN Ion 0 Troponin I.cardiac [Mass/Vol] 0.05 ng/mL Normal 0-0.08 [facility] Comment on above: Performed By: #### I TROT #### Testing performed at [address] [address] Troponin I.cardiac [Mass/Vol] 0.03 ng/mL Normal 0-0.08 [facility] Comment on above: Performed By: #### A CBC, ITROT, CMPF #### Testing performed at [address] [address] Otheron 10-15-2019 Interpretation and review of laboratory results Abnormal [facility] youcalc POCT GLUCOSEon 10-15-2019 Glucose [Mass/Vol] 124 mg/dL Abnormal 70 - 99 mg/dL [facility] Interpretation and review of laboratory results Abnormal [facility] TROPONINon 10-15-2019 Troponin I.cardiac [Mass/Vol] 0.05 ng/mL 0 - 0.08 ng/mL [facility] Troponin I.cardiac [Mass/Vol] 0.03 ng/mL 0 - 0.08 ng/mL [facility] URINALYSIS, MACROon 10-15-19 20 Bilirubin Ql (U) Negative NEGATIVE [facility] youcalc Clarity (U) CLEAR CLEAR [facility] Color (U) YELLOW YELLOW [facility] youcalc Glucose Test strip (U) [Mass/Vol] Negative NEGATIVE mg/dl [facility] youcalc Hemoglobin Ql (U) Negative NEGATIVE [facility] youcalc Ketones (U) [Mass/Vol] Negative NEGAT ANN mg/dl [facility] youcalc Leukocyte esterase Test strip Ql (U) Negative [facility]IVE [facility] Nitrite Ql (U) Negative NEGATIVE [facility] pH (U) 5.5 [pH] [facility] youcalc Protein Ql (U) Negative NEGATIVE mg/dl [facility] Specific gravity (U) [Rel density] 1.010 [facility] Urobilinogen (U) [Mass/Vol] 0.2 [facility] URINE MACROSCOPICon 10-15-19 20 Bilirubin Ql (U) Negative Normal NEGATIVE [facility] Comment on above: Performed By: #### U MAC #### Testing performed at [address] [address] Clarity (U) CLEAR Normal CLEAR [facility] Comment on above: Performed By: #### U MAC #### Testing performed at [address] [address] Color (U) YELLOW Normal YELLOW [facility] Comment on above: Performed By: #### U MAC #### Testing performed at [address] [address] Glucose Ql (U) Negative Normal NEGATIVE [facility] Comment on above: Performed By: #### U MAC #### Testing performed at [address] [address] pH (U) 5.5 [pH] Normal 5.0-7.0 [facility] Comment on above: Performed By: #### U MAC #### Testing performed at [address] [address] Protein (U) [Mass/Vol] Negative Normal NEGATIVE [facility] Comment on above: Performed By: #### U MAC #### Testing performed at [address] [address] URINE HEMOGLOBIN Negative Normal NEGATIVE [facility] Comment on above: Performed By: #### U MAC #### Testing performed at [address] [address] URINE KETONE Negative Normal NEGATIVE [facility] Comment on above: Performed By: #### U MAC #### Testing performed at [address] [address] URINE LEUKOTEST Negative Normal NEGATIVE [facility] Comment on above: Performed By: #### U MAC #### Testing performed at [address] [address] URINE NITRATES Negative Normal NEGATIVE [facility] Comment on above: Performed By: #### U MAC #### Testing performed at [address] [address] URINE SPEC GRAVITY 1.010 Normal 1.010-1.[address] [place] [address] Comment on above: Performed By: #### U MAC #### Testing performed at [address] [address] Urobilinogen Qn (U) 0.2 {Loyd'U}/dL Normal 0.2-1.0 [facility] Comment on above: Performed By: #### U MAC #### Testing performed at [address] [address] XR CHEST PA AND LATERALon TSH Qn [...] IMPRESSION: 1. No acute pulmonary abnormality. Normal [facility] IMPRESSION: 1. No ac [facility] pulmonary abnormality. [facility] User, Interfaces - 10/15/2019 2:50 PM EDT [...] IMPRESSION IMPRESSION: 1. No acute pulmonary abnormality. [facility] EXAM: XR CHEST PA AN D LATERAL [...] thoracic spine. Surgical clips within the abdomen. [facility] ED NOTEon 08-09-2019 ED NOTE HNO ID: [id number] Author: Ellen (Rn) WU Ramos Service: Emergency Medicine Author Type: Registered Nurse Type: ED Notes Filed: 08/09/2019 5:00 PM Note Text: Pt from home with reports of Sores on her head. States she put peroxide on them last night to try to heal them. States when she woke up this morning her eye lids were swollen. Normal [facility] ED PROV NOTEon 08-09-2019 ED PROV NOTE HNO ID: [id number] Author: Kassandra Chan DO Service: Emergency Medicine [...] - Hypertension - Left hip pain - jail (current) use of non-steroidal anti-inflammatories (nsaid) - [...] Kassandra Chan, DO Kassandra Chan, 08/09/192101 Normal [facility] US DOPPLER ARTERIAL LEGS MARK ATERALon 06-05-2019 US DOPPLER ARTERIAL LEGS BILATERAL EXAM: US DOPPLER ARTERIAL LEGS BILATERAL HISTORY: Claudication and PAD COMPARISON: None. TECHNIQUE: Resting ABIs and segmental pressures were obtained. FINDINGS: Right resting MATILDE 1.17. Left resting MATILDE 1.06. Segmental pressures were obtained. No gradients were noted. Waveforms multiphasic. IMPRESSION: Normal resting ABIs. No pressure gradients with segmental pressures. Normal [facility] IMPRESSION: Normal r esting ABIs. No pressure gradients with segmental pressures. [facility] EXAM: US DOPPLER ART ERIAL LEGS BILATERAL HISTORY: Claudication and PAD COMPARISON: None. TECHNIQUE: Resting ABIs and segmental pressures were obtained. FINDINGS: Right resting MATILDE 1.17. Left resting MATILDE 1.06. Segmental pressures were obtained. No gradients were noted. Waveforms multiphasic. [facility] User, Interfaces - 06/05/2019 2:48 PM EST EXAM: US DOPPLER ARTERIAL LEGS BILATERAL HISTORY: Claudication and PAD COMPARISON: None. TECHNIQUE: Resting ABIs and segmental pressures were obtained. FINDINGS: Right resting MATILDE 1.17. Left resting MATILDE 1.06. Segmental pressures were obtained. No gradients were noted. Waveforms multiphasic. IMPRESSION IMPRESSION: Normal resting ABIs. No pressure gradients with segmental pressures. [facility] FASTINGon 05-17-2019 Creatinine [Mass/Vol] 1.00 mg/dL Normal 0.52-1.04 [facility] Comment on above: Performed By: #### B MPF #### Testing performed at [address] [address] EST. GFR, >60 Normal [facility] Comment on above: Performed By: #### B MPF #### Testing performed at [address] [address] EST. GFR,Non 60 ml/min/1.73sq.m Normal [facility] Comment on above: Performed By: #### B MPF #### Testing performed at [address] [address] GFR/1.73 sq M predicted among non-blacks MDRD (S/P/Bld) [Vol rate/Area] Average GFR for 60-69 years old = 85. 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 Kidney failure, GFR = <15. The GFR estimate is not adjusted for extreme body surface area or acute process, nor has it been validated for women or ethnic groups other than and . Performed By: #### B MPF #### Testing performed at [address] [address] Urea nitrogen [Mass/Vol] 21 mg/dL High 7-20 [facility] Comment on above: Performed By: #### B MPF #### Testing performed at [address] [address] Anion gap [Moles/Vol] 14 mmol/L Normal 8-16 [facility] Comment on above: Performed By: #### B MPF #### Testing performed at [address] [address] Calcium [Mass/Vol] 9.5 mg/dL Normal 8.4-10.2 [facility] Comment on above: Performed By: #### B MPF #### Testing performed at [address] [address] Chloride [Moles/Vol] 103 mmol/L Normal 98-107 [facility] Comment on above: Performed By: #### B MPF #### Testing performed at [address] [address] CO2 [Moles/Vol] 21 mmol/L Low 22-30 [facility] Comment on above: Performed By: #### B MPF #### Testing performed at [address] [address] Glucose [Mass/Vol] 117 mg/dL High 70-100 [facility] Comment on above: Result Comment: NORMAL <100 mg/dL PREDIABETES 101-126 mg/dL DIABETES 126 mg/dL or higher Performed By: #### B MPF #### Testing performed at [address] [address] Potassium [Moles/Vol] 5.0 mmol/L Normal 3.5-5.1 [facility] Comment on above: Performed By: #### B MPF #### Testing performed at [address] [address] Sodium [Moles/Vol] 138 mmol/L Normal 136-145 [facility] Comment on above: Performed By: #### B MPF #### Testing performed at [address] [address] LARGE JOINT INJECTION: R sub acromial bursaon [...] usual sterile fashion with Betadine and alcohol. [facility] LARGE JOINT INJECTION: L ricardo rodriguesr trochanteric [...] usual sterile fashion with Betadine and alcohol. [facility] 01-25-2019 IMPRESSION: 1. Starr l ultrasound of the kidneys and bladder. No mass is seen. No calcifications or hydronephrosis. 2. Trace postvoid residual is noted. the grafter EXAM: US RENAL RETROPERITONEAL, US PELVIS LIMITED [...] minimal post void residual of 10 mL. the grafter User, Interfaces - 01/25/2019 4:15 PM EDT [...] hydronephrosis. 2. Trace postvoid residual is noted. the grafter CNCOon 12-28-2018 CNCO Letter Text Normal [facility] Hep C Abon 12-22-2018 Hep C Ab <0.1 Normal 0.0-0.9 [facility] Comment on above: Result Comment: Nega tive: < 0.8 Indeterminate: 0.8 - 0.9 Positive: > 0.9 The CDC recommends that a positive HCV antibody result be followed up with a HCV Nucleic Acid Amplification test (612920). Performed At: [facility] [id number] Jake Montero PhD Ph:[phone] Performed By: #### 2 [id number] #### KATHERINE Jo [address] [place], [place] [id number] US Abdomen Completeon 2018 US Abdomen Complete Exam Date/Time: 12/21/2018 09:15 EDT Reason for Exam: DIFFUSE ABD PAIN;Abdominal pain Report STUDY: US Abdomen Complete; 12/21/2018 9:15 am INDICATION: 63 y/o F with Abdominal pain. COMPARISON: None. ACCESSION NUMBER(S): [id number] ORDERING CLINICIAN: Yamila Hayden TECHNIQUE: Routine ultrasound [...] by: Mark Dove MD Technologist: BS Normal [facility] Auto Diffon 12-21-2018 Basophils (Bld) [#/Vol] 0.1 E3/mcL Normal 0.0-0.2 [facility] Comment on above: Order Comment: Order Added by Tracy Expert. Performed By: #### 2 [id number] #### KATHERINE RemHemo [address] [place] [address] Basophils/100 WBC (Bld) 0.6 % Normal 0.0-2.0 [facility] Comment on above: Order Comment: Order Added by Tracy Expert. Performed By: #### 2 [id number] #### KATHERINE RemHemo [address] [place] [address] Eos Absolute 0.3 E3/mcL Normal 0.0-0.7 [facility] Comment on above: Order Comment: Order Added by Tracy Expert. Performed By: #### 2 388054 #### KATHERINE RemHemo [address] [place] [address] Eosinophils/100 WBC (Bld) 2.9 % Normal 0.0-11.0 [facility] Comment on above: Order Comment: Order Added by Tracy Expert. Performed By: #### 2 904289 #### KATHERINE RemHemo [address] [place] [address] Lymphocytes (Bld) [#/Vol] 1.7 E3/mcL Normal 1.2-3.4 [facility] Comment on above: Order Comment: Order Added by Tracy Expert. Performed By: #### 2 530964 #### KATHERINE RemHemo [address] [place] [address] Lymphocytes/100 WBC (Bld) 17.5 % Low 20.0-55.0 [facility] Comment on above: Order Comment: Order Added by Tracy Expert. Performed By: #### 2 778024 #### KATHERINE RemHemo [address] [place] [address] Cook Absolute 0.6 E3/mcL Normal 0.0-0.7 [facility] Comment on above: Order Comment: Order Added by Tracy Expert. Performed By: #### 2 754670 #### KATHERINE RemHemo [address] [place] [address] Monocytes/100 WBC (Bld) 6.4 % Normal 0.0-10.0 [facility] Comment on above: Order Comment: Order Added by Discern Expert. Performed By: #### 2 549630 #### KATHERINE StilesHemo [address] [place] [address] Neutro Absolute 7.0 E3/mcL High 1.4-6.5 [facility] Comment on above: Order Comment: Order Added by Discern Expert. Performed By: #### 2 900750 #### KATHERINE RemHemo [address] [place] [address] Neutro Auto 72.6 % Normal 37.0-75.0 [facility] Comment on above: Order Comment: Order Added by Discern Expert. Performed By: #### 2 012015 #### KATHERINE StilesHemo [address] [place] [address] CBC w/ Auto Diffon 9 Erythrocyte distribution width (RBC) [Ratio] 14.7 % High 11.5-14.5 [facility] Comment on above: Performed By: #### 2 037971 #### KATHERINE RemHemo [address] [place] [address] Hematocrit (Bld) [Volume fraction] 36.1 % Normal 36.0-48.0 [facility] Comment on above: Performed By: #### 2 535621 #### KATHERINE StilesHemo [address] [place] [address] Hemoglobin (Bld) [Mass/Vol] 12.1 g/dL Normal 12.0-16.0 [facility] Comment on above: Performed By: #### 2 166973 #### KATHERINE RemHemo [address] [place] [address] MCH (RBC) [Entitic mass] 31.3 pg High 27.0-31.0 [facility] Comment on above: Performed By: #### 2 667731 #### KATHERINE RemHemo [address] [place] [address] MCHC (RBC) [Mass/Vol] 33.4 g/dL Normal 33.0-37.0 [facility] Comment on above: Performed By: #### 2 678988 #### KATHERINE RemHemo [address] [place] [address] MCV (RBC) [Entitic vol] 93.9 fL Normal 78.0-100.0 [facility] Comment on above: Performed By: #### 2 127151 #### KATHERINE RemHemo [address] [place] [address] Platelet mean volume (Bld) [Entitic vol] 7.6 fL Normal 7.4-11.0 [facility] Comment on above: Performed By: #### 2 076925 #### KATHERINE RemHemo [address] [place] [address] Platelets (Bld) [#/Vol] 430 E3/mcL High 130-400 [facility] Comment on above: Performed By: #### 2 170155 #### KATHERINE RemHemo [address] [place] [address] RBC (Bld) [#/Vol] 3.85 E6/mcL Low 3.90-5.40 [facility] Comment on above: Performed By: #### 2 691685 #### KATHERINE RemHemo [address] [place] [address] WBC (Bld) [#/Vol] 9.6 E3/mcL Normal 3.6-11.0 [facility] Comment on above: Performed By: #### 2 756659 #### KATHERINE RemHemo [address] [place] [address] CMPon 12-21-2018 Albumin [Mass/Vol] 4.5 g/dL Normal 3.4-5.0 [facility] Comment on above: Performed By: #### 2 228185 #### KATHERINE RemHemo [address] [place] [address] Albumin/Globulin [Mass ratio] 1.6 {ratio} Normal 1.1-1.9 [facility] Comment on above: Performed By: #### 2 553921 #### KATHERINE RemHemo [address] [place] [address] Alk Phos 54 Int._Unit/L Normal 33-136 [facility] Comment on above: Performed By: #### 2 554971 #### KATHERINE StilesHemo [address] [place] [address] ALT [Catalytic activity/Vol] 9 Int._Unit/L Normal 7-45 [facility] Comment on above: Performed By: #### 2 517381 #### KATHERINE StilesHemo [address] [place] [address] Anion gap [Moles/Vol] 15 mmol/L Normal 10-20 [facility] Comment on above: Performed By: #### 2 989305 #### KATHERINE StilesHemo [address] [place] [address] AST [Catalytic activity/Vol] 9 Int._Unit/L Normal 9-39 [facility] Comment on above: Performed By: #### 2 655381 #### KATHERINE StilesHemo [address] [place] [address] Bili Total 0.41 mg/dL Normal 0.00-1.20 [facility] Comment on above: Performed By: #### 2 444627 #### KATHERINE StilesHemo [address] [place] [address] Calcium [Mass/Vol] 9.7 mg/dL Normal 8.6-10.3 [facility] Comment on above: Performed By: #### 2 606150 #### KATHERINE StilesHemo [address] [place] [address] Chloride [Moles/Vol] 101 mmol/L Normal 98-107 [facility] Comment on above: Performed By: #### 2 727671 #### KATHERINE StilesHemo [address] [place] [address] CO2 [Moles/Vol] 27.0 mmol/L Normal 21.0-32.0 [facility] Comment on above: Performed By: #### 2 905698 #### KATHERINE RemHemo [address] [place] [address] Creatinine [Mass/Vol] 2.0 mg/dL High 0.5-1.1 [facility] Comment on above: Performed By: #### 2 358714 #### KATHERINE RemHemo [address] [place] [address] Globulin (S) [Mass/Vol] 3.0 g/dL Normal 2.0-4.0 [facility] Comment on above: Performed By: #### 2 023486 #### KATHERINE StilesHemo [address] [place] [address] Glucose [Mass/Vol] 124 mg/dL High 70-99 [facility] Comment on above: Performed By: #### 2 695323 #### KATHERINE StilesHemo [address] [place] [address] Potassium [Moles/Vol] 5.1 mmol/L Normal 3.5-5.3 [facility] Comment on above: Performed By: #### 2 098388 #### KATHERINE StilesHemo [address] [place] [address] Protein [Mass/Vol] 7.3 g/dL Normal 6.4-8.2 [facility] Comment on above: Performed By: #### 2 594826 #### KATHERINE StilesHemo [address] [place] [address] Sodium [Moles/Vol] 138 mmol/L Normal 136-145 [facility] Comment on above: Performed By: #### 2 511538 #### KATHERINE StilesHemo [address] [place] [address] Urea nitrogen [Mass/Vol] 29 mg/dL High 6-23 [facility] Comment on above: Performed By: #### 2 936656 #### KATHERINE StilesHemo [address] [place] [address] Urea nitrogen/Creatinine [Mass ratio] 14.5 ratio Normal 5.4-30.0 [facility] Comment on above: Performed By: #### 2 094624 #### KATHERINE RemHemo [address] [place] [address] FlkU1xtm 12-21-2018 HbA1c (Bld) [Mass fraction] 6.8 % High 4.0-6.3 [facility] Comment on above: Performed By: #### 2 157002 #### KATHERINE StilesHemo [address] [place] [address] Lipase Levelon 12-21-2018 Lipase Lvl 13 Int._Unit/L Normal 9-82 [facility] Comment on above: Performed By: #### 2 395363 #### KATHERINE StilesHemo [address] [place] [address] Lipid Profileon 12-21-2018 Cholesterol [Mass/Vol] 187 mg/dL Normal 0-199 [facility] Comment on above: Result Comment: TOTA L CHOLEESTEROL: <200 NORMAL 200 - 239 BORDERLINE HIGH >240 HIGH Performed By: #### 2 606207 #### KATHERINE Mcclellando [address] [place] [address] Cholesterol in HDL [Mass/Vol] 44 mg/dL Normal 40-60 [facility] Comment on above: Performed By: #### 2 466755 #### KATHERINE StilesHemo [address] [place] [address] Cholesterol in LDL [Mass/Vol] 83 mg/dL Normal 0-130 [facility] Comment on above: Result Comment: <100 OPTIMAL 100-129 NEAR / ABOVE OPTIMAL 130-159 BORDERLINE HIGH 160-189 HIGH >190 VERY HIGH CALC LDL NOT VALID WHEN TRIGLYCERIDE IS >400 MG/DL Performed By: #### 2 819823 #### KATHERINE StilesHemo [address] [place] [address] Cholesterol in VLDL [Mass/Vol] 60 mg/dL High 0-40 [facility] Comment on above: Performed By: #### 2 438749 #### KATHERINE StilesHemo [address] [place] [address] Triglyceride [Mass/Vol] 302 mg/dL High 0-149 [facility] Comment on above: Result Comment: AGE DESIRABLE BORDERLINE HIGH 91 D - 9 Y 0 - 74 75 - 99 > 100 10 - 19 Y 0 - 89 90 - 129 > 130 20 -24 Y 0 - 114 115 - 149 > 150 > 25 0 - 149 150 - 199 200 - 499 Performed By: #### 2 037691 #### KATHERINE StilesHemo [address] [place] [address] TSHon 12-21-2018 TSH Qn 6.66 mcIU/mL High 0.30-5.60 [facility] Comment on above: Performed By: #### 2 501958 #### KATHERINE StilesHemo [address] [place] [address] Valproic Acidon 12-21-2018 Valpro Acid Lvl 25 microgram/mL Low 50-100 [facility] Comment on above: Performed By: #### 2 936946 #### KATHERINE StilesHemo [facility] [place] [address] Vit B12on 12-21-2018 Cobalamin (Vitamin B12) [Mass/Vol] 268 pg/mL Normal 180-914 [facility] Comment on above: Performed By: #### 2 055497 #### KATHERINE StilesHemo [facility] [place] [address] eGFRon 12-21-2018 GFR/1.73 sq M predicted among non-blacks MDRD (S/P/Bld) [Vol rate/Area] 30 mL/min/1.73 m2 Normal [facility] Comment on above: Order Comment: Order added by Discern Expert. Performed By: #### 2 254431 #### KATHERINE StilesHemo [facility] [place] [address] GFR/1.73 sq M predicted among non-blacks MDRD (S/P/Bld) [Vol rate/Area] 25 mL/min/1.73 m2 [facility] Comment on above: Order Comment: Order added by Discern Expert. Performed By: #### 2 187379 #### KATHERINE StilesHemo [facility] [place] [address] Fecal Occult Bld Tston 11-21 Immuno FOB Negative Normal Negative [facility] Comment on above: Result Comment: This test was developed and its performance characteristics determined by [facility]'s [facility] Pathology and Laboratory Medicine [place] ([facility] It has not been cleared or approved by the FDA. [facility] is regulated under CLIA as qualified to perform high complexity testing. This test is used for clinical purposes. It should not be regarded as investigational or for research. Performed By: #### I FOBT #### [facility] [address] [place], [place] [address] CNOVSPon 11-15-2018 CNOVSP Visit (SP) Office (H EMAAK) ASIF DELA CRUZ ([id number]) 1955 [address] Date Time Provider Department 11/15/18 1:00 PM EMMA HILARIO (PHOTOENGRAVING SUPERVISOR) HEMAMS During your visit today, we recorded [...] tablet 1 po bid PRN - Tizan-M [employer]-LAG-Sophia-Men-Al (COMFORT PAC-TIZANIDINE) 4 mg kit - GABAPENTIN [...] Abs Lymph 1.00 - 4.00 k/uL 2.75 Cook% % 6.9 Abs Cook <0.87 k/uL 0.63 Eosin% % 4.7 Abs [...] Visit None PLAN: MGUS, IgG monoclonal with [place] light chain specificity, too small to quantify [...] CC: Yamila Hayden Referring Provider: YAMILA HAYDEN [[id number]] Allergies As of Date: 11/15/2018 Noted Allergy [...] [D47.2] Order(s):IRON + TIBC [SQIRON] Order #: [id number] FUTURE FERRITIN BLD [SQFERR] Order #: [id number] FUTURE RETIC COUNT [SQRETIC] Order #: [id number] FUTURE ABS GRAN CT + CBC (FOR REMOTE [facility] USE) [SQRAGCBC] Order #: [id number] FUTURE OCCULT BLD EXAM-DIAG [SQOB] Order #: [id number] Follow-up and Disposition History Recorded Prescriptions as [...] by EMMA HILARIO CNP on 11/23/18 Normal [facility] Ferritinon 11-15-2018 Ferritin [Mass/Vol] 132.8 ng/mL Normal 14.7-205.1 [facility] Comment on above: Performed By: #### R ETIC, IRON, FERR #### [facility] [address] [place], [place] [address] Iron and TIBCon 11-15-2018 Iron [Mass/Vol] 54 ug/dL Normal 41-186 [facility] Comment on above: Performed By: #### R ETIC, IRON, FERR #### [facility] [address] [place], [place] [id number] TIBC 377 ug/dL Normal 232-386 [facility] Comment on above: Performed By: #### R ETIC, IRON, FERR #### [facility] [address] [place], [place] [id number] Transferrin Saturatn 14 % Low 15-57 [facility] Comment on above: Performed By: #### R ETIC, IRON, FERR #### [facility] [address] [place], [place] [id number] PROGRESSon 11-15-2018 PROGRESS HNO ID: [id number] Author: Emma Fish (Manager Environmental Health) Rebeka Service: ? Author Type: Nurse Practitioner [...] tablet 1 po bid PRN - Tizan-M Mm-Fmbt-EWU-Sophia-Men-Al (COMFORT PAC-TIZANIDINE) 4 mg kit - GABAPENTIN [...] Abs Lymph 1.00 - 4.00 k/uL 2.75 Cook% % 6.9 Abs Cook <0.87 k/uL 0.63 Eosin% % 4.7 Abs [...] Visit None PLAN: MGUS, IgG monoclonal with [place] light chain specificity, too small to quantify [...] will order myeloma panel again. Emma Hilario, PHOTOENGRAVING SUPERVISOR CC: Yamila Hayden Normal [facility] Reticulocyteon 11-15-2018 Abs Retic 0.078 M/uL Normal 0.0180-0.1 000 [facility] Comment on above: Performed By: #### R ETIC, IRON, FERR #### [facility] [address] [place], [place] [address] Retic% 2.2 % High 0.4-2.0 [facility] Comment on above: Performed By: #### R ETIC, IRON, FERR #### [facility] [address] [place], [place] [address] CBC and Differentialon 11-08 Abs Baso 0.11 k/uL High <0.11 [facility] Abs Cook 0.63 k/uL Normal <0.87 [facility] Abs Neut 5.19 k/uL Normal 1.45-7.50 [facility] Basophils/100 WBC (Bld) 1.2 % Normal [facility] Eosinophils (Bld) [#/Vol] 0.43 10*3/uL Normal <0.46 [facility] Eosinophils/100 WBC (Bld) 4.7 % Normal [facility] Erythrocyte distribution width (RBC) [Ratio] 13.1 % Normal 11.5-15.0 [facility] Hematocrit (Bld) [Volume fraction] 33.5 % Low 36.0-46.0 [facility] Hemoglobin (Bld) [Mass/Vol] 11.1 g/dL Low 11.5-15.5 [facility] Lymphocytes (Bld) [#/Vol] 2.75 10*3/uL Normal 1.00-4.00 [facility] Lymphocytes/100 WBC (Bld) 30.2 % Normal [facility] MCH (RBC) [Entitic mass] 30.5 pG Normal 26.0-34.0 [facility] MCHC (RBC) [Mass/Vol] 33.1 g/dL Normal 30.5-36.0 [facility] MCV (RBC) [Entitic vol] 92.0 fL Normal 80.0-100.0 [facility] Monocytes/100 WBC (Bld) 6.9 % Normal [facility] Neutrophils/100 WBC (Bld) 57.0 % Normal [facility] Platelet mean volume (Bld) [Entitic vol] 9.3 fL Normal 9.0-12.7 [facility] Platelets (Bld) [#/Vol] 373 10*3/uL Normal 150-400 [facility] RBC (Bld) [#/Vol] 3.64 10*6/uL Low 3.90-5.20 [facility] WBC (Bld) [#/Vol] 9.11 10*3/uL Normal 3.70-11.00 [facility] Comp Metabolic Panelon 11-08 Albumin [Mass/Vol] 4.3 g/dL Normal 3.9-4.9 [facility] ALP [Catalytic activity/Vol] 61 U/L Normal 34-123 [facility] ALT [Catalytic activity/Vol] 12 U/L Normal 7-38 [facility] Anion gap [Moles/Vol] 8 mmol/L Low 9-18 [facility] AST [Catalytic activity/Vol] 10 U/L Low 13-35 [facility] Bilirubin [Mass/Vol] 0.2 mg/dL Normal 0.2-1.3 [facility] Calcium [Mass/Vol] 9.5 mg/dL Normal 8.5-10.2 [facility] Chloride [Moles/Vol] 98 mmol/L Normal 97-105 [facility] CO2 [Moles/Vol] 27 mmol/L Normal 22-30 [facility] Creatinine [Mass/Vol] 1.08 mg/dL High 0.58-0.96 [facility] eGFR- Amer. >60 Normal [facility] GFR/1.73 sq M predicted among non-blacks MDRD (S/P/Bld) [Vol rate/Area] 51 . Normal [facility] Comment on above: Result Comment: eGFR (Estimated [...] GFR. Glucose [Mass/Vol] 127 mg/dL High 74-99 [facility] Comment on above: Result Comment: The [employer] [...] 1). Potassium [Moles/Vol] 5.2 mmol/L High 3.7-5.1 [facility] Protein [Mass/Vol] 6.8 g/dL Normal 6.3-8.0 [facility] Sodium [Moles/Vol] 133 mmol/L Low 136-144 [facility] Urea nitrogen [Mass/Vol] 18 mg/dL Normal 7-21 [facility] Vitamin B12on 11-08-2018 Cobalamin (Vitamin B12) [Mass/Vol] 416 pg/mL Normal 232-1245 [facility] Comment on above: Performed By: #### B 12 #### [facility] [address] [address] [place] Mamm Screen w/CAD if perf and 3D Bilon 10-25-2018 Bilirubin.direct [Mass/Vol] Exam Date/Time: 10/24/2018 13:45 EDT Reason for Exam: SCREENING 3D POST MENOPAUSAL;Screening Report STUDY: Digital mammography screening with jose; 10/24/2018 1:45 pm ACCESSION NUMBER(S): [id number] ORDERING CLINICIAN: Yamila Hayden INDICATION: Screening. COMPARISON: [...] Category 1-Negative Recommendation: Normal interval follow-up Normal [facility] BD Bone Density DEXAon 10-24 BD Bone Density DEXA Exam Date/Time: 10/24/2018 13:31 EDT Reason for Exam: SCREENING 3D POST MENOPAUSAL;Post menopausal Report STUDY: BD Bone Density DEXA; 10/24/2018 1:31 pm INDICATION: Post menopausal. Evaluate for osteopenia/osteoporosis, ACCESSION NUMBER(S): [id number] ORDERING CLINICIAN: Yamila Hayden FINDINGS: Standard measurements [...] pm Signed by: Frank Marion MD Technologist: [facility] XR Chest 2 Viewson 9 XR Chest 2 Views Exam Date/Time: 10/24/2018 13:55 EDT Reason for Exam: Cough Report STUDY: XR Chest 2 Views; 10/24/2018 1:55 pm INDICATION: Cough. COMPARISON: 02/28/2017 ACCESSION NUMBER(S): [id number] ORDERING CLINICIAN: Iris Blakely FINDINGS: PA and [...] pm Signed by: Frank Marion MD Technologist: [facility] CT Spine Cervical w/o Contra ston 08-28-2018 CT Spine Cervical w/o Contrast Exam Date/Time: 08/28/2018 14:31 EDT Reason for Exam: Sprain/Strain Report STUDY: CT Spine Cervical w/o Contrast; 08/28/2018 2:31 pm INDICATION: Sprain/Strain. COMPARISON: None. ACCESSION NUMBER(S): [id number] ORDERING CLINICIAN: Mark Alcantar TECHNIQUE: Contiguous axial [...] central canal narrowing identified. C4-5: At least mvhz-[id number] central canal narrowing is present. Mild right-sided [...] Signed by: Frank Marion MD Technologist: [facility] CT Thorax w/o Contraston CT Thorax w/o Contrast Exam Date/Time: 06/26/2018 13:58 EST Reason for Exam: PULMONARY NODULE;Other (please specify) Report STUDY: CT Thorax w/o Contrast; 06/26/2018 1:58 pm INDICATION: Follow-up lung nodule COMPARISON: CT chest dated 07/18/2016 ACCESSION NUMBER(S): [id number] ORDERING CLINICIAN: Yamila Hayden TECHNIQUE: Contiguous axial [...] calcifications are seen throughout the coronary arteries. Krkw-ue-ktazdsqy aortic valve calcifications are present. VESSELS: [id number] atherosclerotic calcifications are seen in the aortic [...] am Signed by: Frank Marion MD Technologist: [facility] Normal [facility] Auto Diffon 06-13-2018 Basophils (Bld) [#/Vol] 0.1 E3/mcL Normal 0.0-0.2 [facility] Comment on above: Order Comment: Order Added by Discern Expert. Performed By: #### 2 [id number] #### KATHERINE [facility] [address] [place] [address] Basophils/100 WBC (Bld) 1.2 % Normal 0.0-2.0 [facility] Comment on above: Order Comment: Order Added by Discern Expert. Performed By: #### 2 [id number] #### KATHERINE Rem[facility] [address] [place] [address] Eos Absolute 0.3 E3/mcL Normal 0.0-0.7 [facility] Comment on above: Order Comment: Order Added by Discern Expert. Performed By: #### 2 [id number] #### KATHERINE [facility] [address] [place] [address] Eosinophils/100 WBC (Bld) 2.5 % Normal 0.0-11.0 [facility] Comment on above: Order Comment: Order Added by Discern Expert. Performed By: #### 2 [id number] #### KATHERINE [employer] [address] [place] [address] Lymphocytes (Bld) [#/Vol] 3.2 E3/mcL Normal 1.2-3.4 [facility] Comment on above: Order Comment: Order Added by Discern Expert. Performed By: #### 2 [id number] #### KATHERINE [facility] [address] [place] [address] Lymphocytes/100 WBC (Bld) 26.6 % Normal 20.0-55.0 [facility] Comment on above: Order Comment: Order Added by Discern Expert. Performed By: #### 2 [id number] #### KATHERINE [facility] [address] [place] [address] Cook Absolute 0.6 E3/mcL Normal 0.0-0.7 [facility] Comment on above: Order Comment: Order Added by Discern Expert. Performed By: #### 2 [id number] #### KATHERINE [facility] [address] [place] [address] Monocytes/100 WBC (Bld) 5.0 % Normal 0.0-10.0 [facility] Comment on above: Order Comment: Order Added by Discern Expert. Performed By: #### 2 [id number] #### KATHERINE [facility] [address] [place] [address] Neutro Absolute 7.7 E3/mcL High 1.4-6.5 [facility] Comment on above: Order Comment: Order Added by Discern Expert. Performed By: #### 2 [id number] #### KATHERINE [facility] [address] [place] [address] Neutro Auto 64.7 % Normal 37.0-75.0 [facility] Comment on above: Order Comment: Order Added by Discern Expert. Performed By: #### 2 [id number] #### KATHERINE [facility] [address] [place] [address] CBC w/ Auto Diffon Erythrocyte distribution width (RBC) [Ratio] 14.0 % Normal 11.5-14.5 [facility] Comment on above: Performed By: #### 2 [id number] #### KATHERINE [facility] [address] [place] [address] Hematocrit (Bld) [Volume fraction] 36.0 % Normal 36.0-48.0 [facility] Comment on above: Performed By: #### 2 [id number] #### KATHERINE [facility] [address] [place] [address] Hemoglobin (Bld) [Mass/Vol] 12.0 g/dL Normal 12.0-16.0 [facility] Comment on above: Performed By: #### 2 144983 #### KATHERINE [facility] [address] [place] [address] MCH (RBC) [Entitic mass] 30.9 pg Normal 27.0-31.0 [facility] Comment on above: Performed By: #### 2 782585 #### KATHERINE [facility] [address] [place] [address] MCHC (RBC) [Mass/Vol] 33.4 g/dL Normal 33.0-37.0 [facility] Comment on above: Performed By: #### 2 [id number] #### KATHERINE Rem[facility] [address] [place] [address] MCV (RBC) [Entitic vol] 92.3 fL Normal 78.0-100.0 [facility] Comment on above: Performed By: #### 2 [id number] #### KATHERINE [facility] [address] [place] [address] Platelet mean volume (Bld) [Entitic vol] 7.7 fL Normal 7.4-11.0 [facility] Comment on above: Performed By: #### 2 [id number] #### KATHERINE [facility] [address] [place] [address] Platelets (Bld) [#/Vol] 422 E3/mcL High 130-400 [facility] Comment on above: Performed By: #### 2 [id number] #### KATHERINE [facility] [address] [place] [address] RBC (Bld) [#/Vol] 3.90 E6/mcL Normal 3.90-5.40 [facility] Comment on above: Performed By: #### 2 [id number] #### KATHERINE Rem[facility] [address] [place] [address] WBC (Bld) [#/Vol] 11.9 E3/mcL High 3.6-11.0 [facility] Comment on above: Performed By: #### 2 446049 #### KATHERINE [facility] [address] [place] [address] CMPon 06-13-2018 Albumin [Mass/Vol] 4.7 g/dL Normal 3.4-5.0 [facility] Comment on above: Performed By: #### 2 442001 #### KATHERINE [facility] [address] [place] [address] Albumin/Globulin [Mass ratio] 1.6 {ratio} Normal 1.1-1.9 [facility] Comment on above: Performed By: #### 2 [id number] #### KATHERINE [facility] [address] [place] [address] Alk Phos 78 Int._Unit/L Normal 33-136 [facility] Comment on above: Performed By: #### 2 [id number] #### KATHERINE [facility] [address] [place] [address] ALT [Catalytic activity/Vol] 12 Int._Unit/L Normal 7-45 [facility] Comment on above: Performed By: #### 2 [id number] #### KATHERINE [facility] [address] [place] [address] Anion gap [Moles/Vol] 14 mmol/L Normal 10-20 [facility] Comment on above: Performed By: #### 2 [id number] #### KATHERINE [employer] [address] [place] [address] AST [Catalytic activity/Vol] 11 Int._Unit/L Normal 9-39 [facility] Comment on above: Performed By: #### 2 [id number] #### KATHERINE [facility] [address] [place] [address] Bili Total 0.38 mg/dL Normal 0.00-1.20 [facility] Comment on above: Performed By: #### 2 016334 #### KATHERINE [employer] [facility] [place] [address] Calcium [Mass/Vol] 9.6 mg/dL Normal 8.6-10.3 [facility] Comment on above: Performed By: #### 2 [id number] #### KATHERINE [employer] [address] [place] [address] Chloride [Moles/Vol] 101 mmol/L Normal 98-107 [facility] Comment on above: Performed By: #### 2 635282 #### KATHERINE [employer] [address] [place] [address] CO2 [Moles/Vol] 28.0 mmol/L Normal 21.0-32.0 [facility] Comment on above: Performed By: #### 2 717612 #### KATHERINE [employer] [address] [place] [address] Creatinine [Mass/Vol] 1.1 mg/dL Normal 0.5-1.1 [facility] Comment on above: Performed By: #### 2 935482 #### AKTHERINE [employer] [facility] [place] [address] Globulin (S) [Mass/Vol] 3.0 g/dL Normal 2.0-4.0 [facility] Comment on above: Performed By: #### 2 [id number] #### KATHERINE [employer] [address] [place] [address] Glucose [Mass/Vol] 82 mg/dL Normal 70-99 [facility] Comment on above: Performed By: #### 2 413761 #### KATHERINEEmelina [facility] [address] [place] [address] Potassium [Moles/Vol] 4.1 mmol/L Normal 3.5-5.3 [facility] Comment on above: Performed By: #### 2 034819 #### KATHERINE [facility] [address] [place] [address] Protein [Mass/Vol] 7.6 g/dL Normal 6.4-8.2 [facility] Comment on above: Performed By: #### 2 788445 #### KATHERINE [facility] [address] [place] [address] Sodium [Moles/Vol] 138 mmol/L Normal 136-145 [facility] Comment on above: Performed By: #### 2 [id number] #### KATHERINE [facility] [address] [place] [address] Urea nitrogen [Mass/Vol] 25 mg/dL High 6-23 [facility] Comment on above: Performed By: #### 2 697377 #### KATHERINE [facility] [address] [place] [address] Urea nitrogen/Creatinine [Mass ratio] 22.7 ratio Normal 5.4-30.0 [facility] Comment on above: Performed By: #### 2 860786 #### KATHERINE [facility] [address] [place] [address] [id number] 06-13-2018 HbA1c (Bld) [Mass fraction] 6.6 % High 4.0-6.3 [facility] Comment on above: Performed By: #### 3 [id number] #### KATHERINE Chemistry Manual Subsection [address] [place] [address] Lipid Profileon 06-13-2018 Cholesterol [Mass/Vol] 239 mg/dL High 0-199 [facility] Comment on above: Performed By: #### 3 [id number] #### KATHERINE [facility] [address] [place] [address] Cholesterol in HDL [Mass/Vol] 54 mg/dL Normal 40-60 [facility] Comment on above: Performed By: #### 3 [id number] #### KATHERINE [facility] [address] [place] [address] Cholesterol in LDL [Mass/Vol] 119 mg/dL Normal 0-130 [facility] Comment on above: Performed By: #### 3 [id number] #### KATHERINE [facility] [address] [place] [address] Cholesterol in VLDL [Mass/Vol] 66 mg/dL High 0-40 [facility] Comment on above: Performed By: #### 3 [id number] #### KATHERINE [employer] [facility] [place] [address] Triglyceride [Mass/Vol] 330 mg/dL High 0-149 [facility] Comment on above: Result Comment: AGE DESIRABLE BORDERLINE HIGH 91 D - 9 Y 0 - 74 75 - 99 > 100 10 - 19 Y 0 - 89 90 - 129 > 130 20 - 24 Y 0 - 114 115 - 149 > 150 > 25 0 - 149 150 - 199 200 - 499 Performed By: #### 3 [id number] #### KATHERINE [employer] [address] [place] [address] Microalb/Creat Ratioon 06-13 Creatinine [Mass/Vol] 77 ug/mg High 0-30 [facility] Comment on above: Performed By: #### 1 [id number] #### KATHERINE [employer] [address] [place] [address] Creatinine [Mass/Vol] 101.0 mg/dL Normal 20.0-300.0 [facility] Comment on above: Performed By: #### 1 [id number] #### KATHERINE [employer] [address] [place] [address] Ur Microalbumin 7.8 mg/dL High 0.0-1.9 [facility] Comment on above: Performed By: #### 1 [id number] #### KATHERINE [employer] [address] [place] [address] TSHon 06-13-2018 TSH Qn 1.93 mcIU/mL Normal 0.30-5.60 [facility] Comment on above: Performed By: #### 2 [id number] #### KATHERINE [employer] [address] [place] [address] UA Completeon 06-13-2018 Color (U) Yellow Normal Yellow [facility] Comment on above: Performed By: #### 8 [id number] #### KATHERINE Urinalysis Automated Subsection [address] [place] [address] Glucose (U) [Mass/Vol] Negative Normal Negative [facility] Comment on above: Performed By: #### 8 [id number] #### KATHERINE Urinalysis Automated Subsection [address] [place] [address] Ketones Ql (U) Negative Normal Negative [facility] Comment on above: Performed By: #### 8 [id number] #### KATHERINE Urinalysis Automated Subsection [address] [place] [address] UA Blood Negative Normal Negative [facility] Comment on above: Performed By: #### 8 [id number] #### KATHERINE Urinalysis Automated Subsection [facility] [place] [address] UA Clarity Clear Normal Clear [facility] Comment on above: Performed By: #### 8 [id number] #### KATHERINE Urinalysis Automated Subsection [facility] [place] [address] UA Leuk Est Negative Normal Negative [facility] Comment on above: Performed By: #### 8 [id number] #### KATHERINE Urinalysis Automated Subsection [facility] [place] [address] UA Mucous Trace Abnormal Trace [facility] Comment on above: Performed By: #### 8 [id number] #### KATHERINE Urinalysis Automated Subsection [facility] [place] [address] UA Nitrite Negative Normal Negative [facility] Comment on above: Performed By: #### 8 [id number] #### KATHERINE Urinalysis Automated Subsection [facility] [place] [address] UA pH 5.0 Normal 4.6-8.0 [facility] Comment on above: Performed By: #### 8 [id number] #### KATHERINE Urinalysis Automated Subsection [address] [place] [address] UA Protein Negative Normal Negative [facility] Comment on above: Performed By: #### 8 [id number] #### KATHERINE Urinalysis Automated Subsection [facility] [place] [address] UA Spec Grav 1.015 Normal 1.003-1.03 0 [facility] Comment on above: Performed By: #### 8 [id number] #### KATHERINE Urinalysis Automated Subsection [facility] [place] [address] UA Squam Epithelial 0-5 Normal 0-5 [facility] Comment on above: Performed By: #### 8 [id number] #### KATHERINE Urinalysis Automated Subsection [facility] [place] [address] UA Urobilinogen Negative Normal [facility] Comment on above: Result Comment: Due to a manufacturing issue, low positive urobilinogen results may be fasely positive. Correlate with urine bilirubin and additional clinical/laboratory findings to assess the risk of hemolytic anemia or liver disease. If clinically indicated, repeat testing with an alternate method is available by contacting the laboratory within 24 hours. Performed By: #### 8 [id number] #### KATHERINE Urinalysis Automated Subsection [address] [place] [address] Urobilinogen Qn (U) Negative Normal Negative [facility] Comment on above: Performed By: #### 8 [id number] #### KATHERINE Urinalysis Automated Subsection [address] [place] [address] eGFRon 06-13-2018 GFR/1.73 sq M predicted among non-blacks MDRD (S/P/Bld) [Vol rate/Area] 49 mL/min/1.73 m2 [facility] Comment on above: Order Comment: Order added by Discern Expert. Performed By: #### 1 [id number] #### KATHERINE [facility] [facility] [place] [address] GFR/1.73 sq M predicted among non-blacks MDRD (S/P/Bld) [Vol rate/Area] 60 mL/min/1.73 m2 [facility] Comment on above: Order Comment: Order added by Discern Expert. Performed By: #### 1 [id number] #### KATHERINE [facility] [address] [place], [place] [id number] BLOOD GAS VENOUSon 8 Arterial patency Wrist artery --pre arterial puncture NOT APPLICABLE Invalid Interpretation Code [address] Base excess Calculated molar conc (BldV) 1.9 Invalid Interpretation Code [address] Carbon dioxide/Gas.total.at end expiration in Exhaled gas 20.0 Invalid Interpretation Code Vol% [address] Carboxyhemoglobin/Hemo globin.total mass fraction (Bld) 3.6 % Invalid Interpretation Code [address] CO2 ppres (BldC) 24.[address] Diagnosis Narrative UNKNOWN Invalid Interpretation Code [address] HCO3 molar conc (Bld) 22.6 mmol/L Invalid Interpretation Code [address] Hemoglobin mass conc (Bld) 12.5 g/dL Invalid Interpretation Code [address] Interpretation and review of laboratory results Abnormal Invalid Interpretation Code [address] Methemoglobin/Hemoglob in.total mass fraction (BldC) 0.8 % Invalid Interpretation Code [address] O2 Device UNKNOWN Invalid Interpretation Code [address] Oxygen ppres (BldC) 28.[address] Oxygen saturation in Capillary blood 51.4 % Low 68 - 77 % [address] Oxyhemoglobin/Hemoglob in.total mass fraction (Bld) 49.1 % Invalid Interpretation Code [address] Patient PO2 Settings UNKNOWN Invalid Interpretation Code [address] pH (BldC) 7.[address] Specimen site Narrative LAB Invalid Interpretation Code [address] CBC, EDIF, PLATELETon 2017 ABSOLUTE BASOPHIL COUNT 0.1 Invalid Interpretation Code X10 [address] Basophils/100 WBC Auto (Bld) 1.1 % Invalid Interpretation Code 0 - 2 % [address] Differential cell count method Nom (Bld) AUTO DIFF Invalid Interpretation Code % [address] Eosinophils Auto #/vol (Bld) 0.20 10*3/uL Invalid Interpretation Code X10 [address] Eosinophils/100 WBC Auto (Bld) 1.3 % Invalid Interpretation Code 0 - 11 % [address] Erythrocyte distribution width Ratio (RBC) 14.2 % Invalid Interpretation Code 11.5 - 14.5 % [address] Hematocrit Auto Volume Fraction (Bld) 37.7 % Invalid Interpretation Code 36 - 48 % [address] Hemoglobin mass conc (Bld) 13.1 g/dL Invalid Interpretation Code [address] Lymphocytes Manual cnt #/vol (Bld) 3.20 Invalid Interpretation Code X10 [address] Lymphocytes/100 WBC Auto (Bld) 25.8 % Invalid Interpretation Code 20 - 55 % [address] MCH Auto Entitic mass (RBC) 30.6 pg Invalid Interpretation Code 26 - [address] MCHC Auto mass conc (RBC) 34.6 g/dL Invalid Interpretation Code [address] MCV Auto Entitic volume (RBC) 88.2 fL Invalid Interpretation Code [address] Monocytes Manual cnt #/vol (Bld) 0.7 Invalid Interpretation Code X10 [address] Monocytes/100 WBC Auto (Bld) 5.7 % Invalid Interpretation Code 0 - 10 % [address] Neutrophils Auto #/vol (Bld) 8.1 10*3/uL High [address] Neutrophils/100 WBC Auto (Bld) 66.1 % Invalid Interpretation Code 37 - 75 % [address] Platelet mean volume Auto Entitic volume (Bld) 7.2 fL Low [address] Platelets Auto #/vol (Bld) 436 10*3/uL High [address] RBC Auto #/vol (Bld) 4.28 10*6/uL Invalid Interpretation Code [address] WBC Auto #/vol (Bld) 12.2 10*3/uL High ON [address] COMPREHENSIVE METABOLIC PANE [place] 05-03-2018 Albumin mass conc 4.7 G/dl Invalid Interpretation Code 3.5 - 5 G/dl [address] Albumin/Globulin mass ratio 1.6 {ratio} Invalid Interpretation Code [address] ALP enzyme act/vol 71 U/L Invalid Interpretation Code [address] ALT enzyme act/vol 12 U/L Low [address] AST enzyme act/vol 16 U/L Invalid Interpretation Code [address] Bilirubin mass conc 1.1 mg/dL Invalid Interpretation Code [address] Calcium mass conc 9.6 mg/dL Invalid Interpretation Code [address] Chloride molar conc 91 mmol/L Low [address] CO2 molar conc 24 mmol/L Invalid Interpretation Code [address] Creatinine mass conc 1.4 mg/dL High [address] GFR/1.73 sq M predicted among blacks MDRD vol rate/area (S/P/Bld) 49 mL/min/{1.73_m2} Invalid Interpretation Code ml/min/1.[address] GFR/1.73 sq M predicted among non-blacks MDRD vol rate/area (S/P/Bld) Average GFR for 60-69 years old = 85. Invalid Interpretation Code [address] Comment on above: Chronic Kidney disea se, GFR = <60. Kidney failure, GFR = <15. The GFR estimate is not adjusted for extreme body surface area or acute process, nor has it been validated for women or ethnic groups other than and . GFR/1.73 sq M predicted among non-blacks MDRD vol rate/area (S/P/Bld) 41 mL/min/{1.73_m2} Invalid Interpretation Code ml/min/1.[address] Glucose fasting mass conc 98 mg/dL Invalid Interpretation Code [address] Comment on above: NORMAL <100 mg/dL [place] EDIABETES 101-126 mg/dL DIABETES 126 mg/dL or higher Potassium molar conc 3.7 mmol/L Invalid Interpretation Code [address] Protein mass conc 7.7 g/dL Invalid Interpretation Code [address] Sodium molar conc 131 mmol/L Low [address] Urea nitrogen mass conc 31 mg/dL High [address] KETONES (BLOOD)on 05-03-2018 Beta hydroxybutyrate molar conc 0.[address] LACTATE, BLOODon 05-03-2018 Lactate molar conc 1.5 mmol/L Invalid Interpretation Code [address] LIPASEon 05-03-2018 Lipase enzyme act/vol 19 U/L Low 23 - 3 00 U/L [address] Otheron 05-03-2018 Interpretation and review of laboratory results Abnormal Invalid Interpretation Code [address] POCT GLUCOSEon 05-03-2018 Glucose mass conc 105 mg/dL Abnormal 70 - 99 mg/dL [facility] Work Phone: Interpretation and review of laboratory results Abnormal Invalid Interpretation Code [facility] Work Phone: TROPONINon 05-03-2018 Troponin I.cardiac mass conc ng/mL Invalid Interpretation Code 0 - 0.08 ng/mL [address] URINALYSIS, MACROon 05-03-20 18 Bilirubin Ql (U) Negative Invalid Interpretation Code NEGATIVE [address] Clarity Nom (U) CLEAR Invalid Interpretation Code CLEAR [address] Color Nom (U) YELLOW Invalid Interpretation Code YELLOW [address] Glucose Test strip mass conc (U) Negative Invalid Interpretation Code NEGATIVE mg/dl [address] Hemoglobin Test strip Ql (U) Negative Invalid Interpretation Code NEGATIVE [address] Interpretation and review of laboratory results Abnormal Invalid Interpretation Code [address] Ketones mass conc (U) Negative Invalid Interpretation Code NEGATIVE mg/dl [address] Leukocyte esterase Test strip Ql (U) Negative Invalid Interpretation Code NEGATIVE [address] Nitrite Test strip Ql (U) Negative Invalid Interpretation Code NEGATIVE [address] pH Test strip (U) 5.5 [pH] Invalid Interpretation Code [facility] - [address] [place] [address] Protein Test strip Ql (U) Negative Invalid Interpretation Code NEGATIVE mg/dl [address] Specific gravity Relative Density (U) <1.[address] Urobilinogen mass conc (U) 0.2 mg/dl Invalid Interpretation Code 0.2 - 1 mg/dl [address] Otheron 04-19-2018 Dell Willis 04/19/2018 1:55 PM 04/19/2018 EMG/NCV study performed on today's date. Full report to be scanned as soon as possible. Invalid Interpretation Code [facility] Work Phone: ED PHYSICIAN DICTATIONon ED PHYSICIAN DICTATION The required clin ica documentation could not be extracted for this report. Please refer to the [facility] Record or contact the HIM Department at [facility] [place] ([phone]) to obtain a copy of this report. Normal [facility] ED PHYSICIAN DICTATION PDF Normal [facility] HISTORY & PHYSICALon 017 HISTORY & PHYSICAL [facility] History and PhysicalASIF DELA CRUZ JMRN: [id number] ACCTNUM: [id number] OF : 1955 SEX/AGE: F/61PATIENT TYPE: [facility]: LOCATION: [id number] DATE: CHIEF COMPLAINT: Dizziness, lightheadedness, weakness, and sweatiness.HISTORY OF CHIEF COMPLAINT: This is a 61-year-old lady who [place] [facility] with the above chief complaint. She states that she was with hergranddaughter and became frightened because she started to feel weak, dizzy, lightheaded, and was sweaty.She was transported to the emergency room of [facility]. The patient reports that she had notfelt [...] lesions. No open areas. Page [address] [place] [address] History and PhysicalPATIENT NAME: ASIF DELA CRUZ#: [id number] ACCTNUM: [id number] DATA AND DIAGNOSTIC STUDIES: Chest x-ray shows no acute findings. CT of the headshows no definitive acute abnormality. Evidence of subacute chronic cerebromicrovascular disease. Lactic acid4.5. Hemogram: White count 17.3, hemoglobin 16.1, hematocrit 44.9, platelets 628. Metabolic panel: [id number], potassium 4.1, chloride 91, CO2 of 25, [...] Condon DOKS:modlD: 12/18/2016 11:23:50T: 12/18/2016 12:20:35Job #: [id number] Page 2 of 1 Normal [facility] HISTORY & PHYSICAL PDF Normal [facility] Basic Panelon 12-19-2016 Anion gap 0 mmol/L Low 8-20 [facility] Comment on above: Performed By: #### L GFR ####[place] [address] BUN (urea nitrogen) 12 mg/dL Normal 7-25 [facility] Comment on above: Performed By: #### L GFR ####[facility] [place] [address] BUN/Creatinine Ratio 15 mg/mg Normal 10-[address] [facility] Comment on above: Performed By: #### L GFR ####[place] [address] Calcium 8.5 mg/dL Normal 8.5-10.1 [facility] Comment on above: Performed By: #### L GFR ####[place] [address] Chloride 106 mmol/L Normal 98-107 [facility] Comment on above: Performed By: #### L GFR ####[place] [address] CO2 32 mmol/L Normal 21-32 [facility] Comment on above: Performed By: #### L GFR ####[place] [address] Creatinine 0.81 mg/dL Normal 0.51-0.95 [facility] Comment on above: Performed By: #### L GFR ####[place] [address] Glucose mass conc 62 mg/dL Low 70-99 [facility] Comment on above: Performed By: #### L GFR ####[place] [address] Potassium molar conc 4.1 mmol/L Normal 3.5-5.[address] [facility] Comment on above: Performed By: #### L GFR ####[place] [address] Sodium 134 mmol/L Low 136-145 [facility] Comment on above: Performed By: #### L GFR ####[place] [address] Hemogram/Diffon 12-19-2016 Erythrocytes (RBC) 3.63 mil/cmm Low 4.20-5.[address] [facility] Comment on above: Performed By: #### L GFR ####[place] [address] Hematocrit (HCT) 32.4 % Low 37.0-47.0 [facility] Comment on above: Performed By: #### L GFR ####[address] [address] Hemoglobin mass conc (Bld) 11.2 g/dL Low 12.0-16.0 [facility] Comment on above: Performed By: #### L GFR ####[place] [address] MCH 30.9 pg Normal 27.0-31.0 [facility] Comment on above: Performed By: #### L GFR ####[place] [address] MCV 89.3 fL Normal 81.0-99.0 [facility] Comment on above: Performed By: #### L GFR ####[place] [address] Platelets 371 thou/cmm Normal 150-400 [facility] Comment on above: Performed By: #### L GFR ####[address] [address] Hemogram/Manual Diffon 12-19 Basophils Auto #/vol (Bld) 0.00 thou/cmm Normal 0.00-0.08 [facility] Comment on above: Performed By: #### L GFR ####[address] [address] Basophils/100 WBC Auto (Bld) 0.0 % Normal [facility] Comment on above: Performed By: #### L GFR ####[address] [address] Eosinophils 0.22 thou/cmm Normal 0.00-0.41 [facility] Comment on above: Performed By: #### L GFR ####[address] [address] Eosinophils/100 leukocytes 2.0 % Normal [facility] Comment on above: Performed By: #### L GFR ####[address] [address] Erythrocyte morphology Normal Normal [facility] Comment on above: Performed By: #### L GFR ####[address] [address] Lymphocytes 4.70 thou/cmm High 1.50-3.65 [facility] Comment on above: Performed By: #### L GFR ####[address] [address] Lymphocytes/100 leukocytes 42.0 % Normal [facility] Comment on above: Performed By: #### L GFR ####[place] [address] Metamyelocytes 1.0 % Normal [facility] Comment on above: Performed By: #### L GFR ####[place] [address] Monocytes 0.22 thou/cmm Normal 0.20-1.00 [facility] Comment on above: Performed By: #### L GFR ####[address] [address] Monocytes/100 leukocytes 2.0 % Normal [facility] Comment on above: Performed By: #### L GFR ####[address] [address] Platelets Normal Normal [facility] Comment on above: Performed By: #### L GFR ####[address] [address] Seg Neutrophil 53.0 % Normal [facility] Comment on above: Performed By: #### L GFR ####[place] [address] Seg. Neut.# 6.06 thou/cmm High 3.00-5.67 [facility] Comment on above: Performed By: #### L GFR ####[place] [address] Erythrocyte distribution width Auto Ratio (RBC) 13.2 % Normal 11.5-15.9 [facility] Comment on above: Performed By: #### L GFR ####[place] [address] MCHC mass conc (RBC) 34.6 % Normal 32.0-36.[address] [facility] Comment on above: Performed By: #### L GFR ####[place] [address] Platelet mean volume (PMV) 8.3 fL Normal 7.1-10.5 [facility] Comment on above: Performed By: #### L GFR ####[place] [address] WBC (Leukocytes) 11.2 thou/cmm High 4.8-10.8 [facility] Comment on above: Performed By: #### L GFR ####[place] [address] Lactic acidon 12-19-2016 Lactate 0.9 mmol/L Normal 0.4-2.0 [facility] Comment on above: Performed By: #### L TRP ####[place] [address] MDRD eGFRon 12-19-2016 eGFR (non-black) mL/min/{1.73_m2} Normal >60mL/m in/ 1.73m2 [facility] Comment on above: Result Comment: If t he patient is , multiply the result by 1.210. Performed By: #### L TRP ####[place] [address] Comprehensive Panelon 2016 AST-SGOT Blood 24 U/L Normal 15-37 [facility] Comment on above: Performed By: #### L P8 ####[place] [address] Albumin 3.1 g/dL Low 3.4-5.0 [facility] Comment on above: Performed By: #### L P8 ####[place] [address] Alkaline phosphatase (ALP) 59 U/L Normal 46-116 [facility] Comment on above: Performed By: #### L P8 ####[place] [address] ALT-SGPT Blood 42 U/L Normal 12-78 [facility] Comment on above: Performed By: #### L P8 ####[facility] [place], [place] [address] Anion gap 10 mmol/L Normal 8-20 [facility] Comment on above: Performed By: #### L P8 ####[address] [address] Bilirubin Ql (U) 0.2 mg/dL Normal 0.2-1.0 [facility] Comment on above: Performed By: #### L P8 ####[address] [address] BUN (urea nitrogen) 25 mg/dL Normal 7-25 [facility] Comment on above: Performed By: #### L P8 ####[address] [address] BUN/Creatinine Ratio 33 mg/mg High 10-[address] [facility] Comment on above: Performed By: #### L P8 ####[address] [address] Calcium 8.6 mg/dL Normal 8.5-10.1 [facility] Comment on above: Performed By: #### L P8 ####[address] [address] Chloride 97 mmol/L Low 98-107 [facility] Comment on above: Performed By: #### L P8 ####[address] [address] CO2 29 mmol/L Normal 21-32 [facility] Comment on above: Performed By: #### L P8 ####[address] [address] Creatinine 0.77 mg/dL Normal 0.51-0.95 [facility] Comment on above: Performed By: #### L P8 ####[address] [address] Glucose mass conc 153 mg/dL High 70-99 [facility] Comment on above: Performed By: #### L P8 ####[place] [address] Potassium molar conc 3.6 mmol/L Normal 3.5-5.[address] [facility] Comment on above: Performed By: #### L P8 ####[facility] [place], [place] [address] Protein 6.2 g/dL Low 6.4-8.2 [facility] Comment on above: Performed By: #### L P8 ####[facility] [place], [place] [address] Sodium 132 mmol/L Low 136-145 [facility] Comment on above: Performed By: #### L P8 ####[facility] [place], [place] [address] Glucose Bloodon 12-18-2016 Glucose mass conc 65 mg/dL Low 70-99 [facility] Comment on above: Performed By: #### L GLU ####[address] [address] Glucose Meteron 12-18-2016 Glucose mass conc 113 mg/dL High 70-99 [facility] Comment on above: Result Comment: RN N OTIFIEDTesting performed at [address] [address] Performed By: #### L GFR ####[address] [address] Glucose mass conc 147 mg/dL High 70-99 [facility] Comment on above: Result Comment: RN N OTIFIEDTesting performed at [address] [address] Performed By: #### L GFR ####[address] [address] Glucose mass conc 213 mg/dL High 70-99 [facility] Comment on above: Result Comment: RN N OTIFIEDTesting performed at [address] [address] Performed By: #### L GFR ####[address] [address] Glucose mass conc 194 mg/dL High 70-99 [facility] Comment on above: Result Comment: Test ing performed at [address] [address] Performed By: #### L GFR ####[address] [address] Glucose mass conc 68 mg/dL Low 70-99 [facility] Comment on above: Result Comment: RN N OTIFIEDTesting performed at [address] [address] Performed By: #### L P8 ####[facility] [place], [place] [address] Glucose mass conc 180 mg/dL High 70-99 [facility] Comment on above: Result Comment: Test ing performed at [address] [address] Performed By: #### L P8 ####[address] [address] Glucose mass conc 70 mg/dL Normal 70-99 [facility] Comment on above: Result Comment: Test ing performed at [address] [address] Performed By: #### L P8 ####[address] [address] Glucose mass conc 111 mg/dL High 70-99 [facility] Comment on above: Result Comment: Test ing performed at [address] [address] Performed By: #### L GFR ####[address] [address] Glucose mass conc 76 mg/dL Normal 70-99 [facility] Comment on above: Result Comment: Test ing performed at [address] [address] Performed By: #### L P8 ####[address] [address] Glucose mass conc 56 mg/dL Low 70-99 [facility] Comment on above: Result Comment: RN N OTIFIEDTesting performed at [address] [address] Performed By: #### L P8 ####[address] [address] Glucose mass conc mg/dL Low 70-99 [facility] Comment on above: Result Comment: WU N OTIFIEDMD NOTIFIEDTesting performed at [address] [address] Performed By: #### L P8 ####[address] [address] Glucose mass conc 94 mg/dL Normal 70-99 [facility] Comment on above: Result Comment: Test ing performed at [address] [address] Performed By: #### L P8 ####[address] [address] Hemogram/Manual Diffon 12-18 Basophils Auto #/vol (Bld) 0.00 thou/cmm Normal 0.00-0.08 [facility] Comment on above: Performed By: #### L MCBD ####[address] [address] Basophils/100 WBC Auto (Bld) 0.0 % Normal [facility] Comment on above: Performed By: #### L MCBD ####[address] [address] Eosinophils 0.55 thou/cmm High 0.00-0.41 [facility] Comment on above: Performed By: #### L MCBD ####[address] [address] Eosinophils/100 leukocytes 3.0 % Normal [facility] Comment on above: Performed By: #### L MCBD ####[address] [address] Erythrocyte morphology Normal Normal [facility] Comment on above: Performed By: #### L MCBD ####[address] [address] Lymphocytes 5.49 thou/cmm High 1.50-3.65 [facility] Comment on above: Performed By: #### L MCBD ####[address] [address] Lymphocytes/100 leukocytes 30.0 % Normal [facility] Comment on above: Performed By: #### L MCBD ####[address] [address] Metamyelocytes 2.0 % Normal [facility] Comment on above: Performed By: #### L MCBD ####[place] [address] [place] [address] Monocytes 0.73 thou/cmm Normal 0.20-1.00 [facility] Comment on above: Performed By: #### L MCBD ####[place] [address] Monocytes/100 leukocytes 4.0 % Normal [facility] Comment on above: Performed By: #### L MCBD ####[place] [address] Myelocytes 1.0 % Normal [facility] Comment on above: Performed By: #### L MCBD ####[place] [address] Platelets High Normal [facility] Comment on above: Performed By: #### L MCBD ####[place] [address] Seg Neutrophil 60.0 % Normal [facility] Comment on above: Performed By: #### L MCBD ####[place] [address] Seg. Neut.# 11.53 thou/cmm High 3.00-5.67 [facility] Comment on above: Performed By: #### L MCBD ####[place] [address] WBC Morphology see below Normal [facility] Comment on above: Result Comment: Smud ge cells present Performed By: #### L MCBD ####[place] [address] Erythrocyte distribution width Auto Ratio (RBC) 13.2 % Normal 11.5-15.9 [facility] Comment on above: Performed By: #### L MCBD ####[place] [address] Erythrocytes (RBC) 4.00 mil/cmm Low 4.20-5.[address] [facility] Comment on above: Performed By: #### L MCBD ####[place] [address] Hematocrit (HCT) 35.6 % Low 37.0-47.0 [facility] Comment on above: Performed By: #### L MCBD ####[place] [address] Hemoglobin mass conc (Bld) 12.5 g/dL Normal 12.0-16.0 [facility] Comment on above: Performed By: #### L MCBD ####[place] [address] MCH 31.3 pg High 27.0-31.0 [facility] Comment on above: Performed By: #### L MCBD ####[place] [address] MCHC mass conc (RBC) 35.1 % Normal 32.0-36.[address] [facility] Comment on above: Performed By: #### L MCBD ####[place] [address] MCV 89.0 fL Normal 81.0-99.0 [facility] Comment on above: Performed By: #### L MCBD ####[place] [address] Platelet mean volume (PMV) 8.6 fL Normal 7.1-10.5 [facility] Comment on above: Performed By: #### L MCBD ####[place] [address] Platelets 449 thou/cmm High 150-400 [facility] Comment on above: Performed By: #### L MCBD ####[place] [address] WBC (Leukocytes) 18.3 thou/cmm High 4.8-10.8 [facility] Comment on above: Performed By: #### L MCBD ####[place] [address] Lactic acidon 12-18-2016 Lactate 1.6 mmol/L Normal 0.4-2.0 [facility] Comment on above: Performed By: #### L P8 ####[place] [address] MDRD eGFRon 12-18-2016 eGFR (non-black) mL/min/{1.73_m2} Normal >60mL/m in/ 1.73m2 [facility] Comment on above: Result Comment: If t he patient is , multiply the result by 1.210. Performed By: #### L P8 ####[place] [address] Valproic Acid,Grovespring.on 2016 Valproic Acid,Grovespring. 17 mg/L Low 50-100 [facility] Comment on above: Performed By: #### L GFR ####[place] [address] Basic Panelon 12-17-2016 Anion gap 17 mmol/L Normal 8-20 [facility] Comment on above: Performed By: #### L P8 ####[place] [address] BUN (urea nitrogen) 29 mg/dL High 7-25 [facility] Comment on above: Performed By: #### L P8 ####[place] [address] BUN/Creatinine Ratio 34 mg/mg High 10-[address] [facility] Comment on above: Performed By: #### L P8 ####[place] [address] Calcium 10.8 mg/dL High 8.5-10.1 [facility] Comment on above: Performed By: #### L P8 ####[place] [address] Chloride 91 mmol/L Low 98-107 [facility] Comment on above: Performed By: #### L P8 ####[place] [address] CO2 25 mmol/L Normal 21-32 [facility] Comment on above: Performed By: #### L P8 ####[place] [address] Creatinine 0.85 mg/dL Normal 0.51-0.95 [facility] Comment on above: Performed By: #### L P8 ####[place] [id number] Glucose mass conc 132 mg/dL High 70-99 [facility] Comment on above: Performed By: #### L P8 ####[facility] [place] [address] Potassium molar conc 4.1 mmol/L Normal 3.5-5.[address] [facility] Comment on above: Performed By: #### L P8 ####[facility] [place] [address] Sodium 129 mmol/L Low 136-145 [facility] Comment on above: Performed By: #### L P8 ####[facility] [place] [address] CHEST 2 VIEWSon 12-17-2016 CHEST 2 VIEWS Performed at [facility] APPROVED BY: Nadeem Hoffman MD [...] abdomen. IMPRESSION: No acute radiographic abnormality. Normal [facility] CT HEAD W/O CONTRASTon 12-17 CT HEAD W/O CONTRAST Performed at [facility] APPROVED BY: Sandy Stewart MD BRAIN CT [...] evidence of subacute/chronic cerebral microvascular disease. Normal [facility] Hemogram/Manual Diffon 12-17 Basophils Auto #/vol (Bld) 0.00 thou/cmm Normal 0.00-0.08 [facility] Comment on above: Performed By: #### L MCBD ####[address] [address] Basophils/100 WBC Auto (Bld) 0.0 % Normal [facility] Comment on above: Performed By: #### L MCBD ####[address] [address] Eosinophils 0.00 thou/cmm Normal 0.00-0.41 [facility] Comment on above: Performed By: #### L MCBD ####[address] [address] Eosinophils/100 leukocytes 0.0 % Normal [facility] Comment on above: Performed By: #### L MCBD ####[address] [address] Erythrocyte morphology Normal Normal [facility] Comment on above: Performed By: #### L MCBD ####[address] [address] Lymphocytes 4.33 thou/cmm High 1.50-3.65 [facility] Comment on above: Performed By: #### L MCBD ####[address] [address] Lymphocytes/100 leukocytes 25.0 % Normal [facility] Comment on above: Performed By: #### L MCBD ####[address] [address] Monocytes 0.35 thou/cmm Normal 0.20-1.00 [facility] Comment on above: Performed By: #### L MCBD ####[address] [address] Monocytes/100 leukocytes 2.0 % Normal [facility] Comment on above: Performed By: #### L MCBD ####[address] [address] Platelets High Normal [facility] Comment on above: Performed By: #### L MCBD ####[facility] [place] [address] Seg Neutrophil 73.0 % Normal [facility] Comment on above: Performed By: #### L MCBD ####[place] [address] Seg. Neut.# 12.62 thou/cmm High 3.00-5.67 [facility] Comment on above: Performed By: #### L MCBD ####[place] [address] Erythrocyte distribution width Auto Ratio (RBC) 13.1 % Normal 11.5-15.9 [facility] Comment on above: Performed By: #### L MCBD ####[place] [address] Erythrocytes (RBC) 5.28 mil/cmm Normal 4.20-5.[address] [facility] Comment on above: Performed By: #### L MCBD ####[place] [address] Hematocrit (HCT) 44.9 % Normal 37.0-47.0 [facility] Comment on above: Performed By: #### L MCBD ####[place] [address] Hemoglobin mass conc (Bld) 16.1 g/dL High 12.0-16.0 [facility] Comment on above: Performed By: #### L MCBD ####[place] [address] MCH 30.5 pg Normal 27.0-31.0 [facility] Comment on above: Performed By: #### L MCBD ####[place] [address] MCHC mass conc (RBC) 35.9 % Normal 32.0-36.[address] [facility] Comment on above: Performed By: #### L MCBD ####[place] [address] MCV 85.0 fL Normal 81.0-99.0 [facility] Comment on above: Performed By: #### L MCBD ####[address] [address] Platelet mean volume (PMV) 8.9 fL Normal 7.1-10.5 [facility] Comment on above: Performed By: #### L MCBD ####[address] [address] Platelets 628 thou/cmm High 150-400 [facility] Comment on above: Performed By: #### L MCBD ####[place] [place] [address] WBC (Leukocytes) 17.3 thou/cmm High 4.8-10.8 [facility] Comment on above: Performed By: #### L MCBD ####[place] [address] Lactic acidon 12-17-2016 Lactate 4.5 mmol/L Critically high 0.4-2.0 [facility] Comment on above: Performed By: #### L LA ####[place] [address] MDRD eGFRon 12-17-2016 eGFR (non-black) mL/min/{1.73_m2} Normal >60mL/m in/ 1.73m2 [facility] Comment on above: Result Comment: If t he patient is , multiply the result by 1.210. Performed By: #### L GFR ####[address] [address] Troponin Ion 12-17-2016 Troponin I.cardiac mass conc ng/mL Normal <=0.07 [facility] Comment on above: Performed By: #### L TRP ####[address] [address] Urinalysis Routineon 017 Bilirubin Urine Negative Normal Negative [facility] Comment on above: Performed By: #### L URIN ####[place] [address] Ep Cells Urine 6-12 Abnormal 0-5 [facility] Comment on above: Performed By: #### L URIN ####[place] [address] Hemoglobin,Urine Negative Normal Negative [facility] Comment on above: Performed By: #### L URIN ####[facility] [place] [address] Ketone Urine TRACE Abnormal Negative [facility] Comment on above: Performed By: #### L URIN ####[place] [address] Nitrites Urine Negative Normal Negative [facility] Comment on above: Performed By: #### L URIN ####[place] [address] Protein Urine 3+ Abnormal Negative [facility] Comment on above: Performed By: #### L URIN ####[place] [address] Specific [place], Ur 1.020 Normal 1.005-1 .03 0 [facility] Comment on above: Performed By: #### L URIN ####[place] [address] Urine, appearance 1+ (HAZY) Normal [facility] Comment on above: Performed By: #### L URIN ####[place] [address] Urine, bacteria in sediment FEW Abnormal None [facility] Comment on above: Performed By: #### L URIN ####[place] [address] Urine, color YELLOW Normal [facility] Comment on above: Performed By: #### L URIN ####[place] [address] Urine, erythrocytes in sediment by area NONE Normal 0-3 [facility] Comment on above: Performed By: #### L URIN ####[place] [address] Urine, glucose presence 1+ Abnormal Negative [facility] Comment on above: Performed By: #### L URIN ####[place] [address] Urine, leukocytes in sedmiment NONE Normal 0-5 [facility] Comment on above: Performed By: #### L URIN ####[facility] [place], [place] [address] Urine, pH 6.0 [pH] Normal 5.0-8.0 [facility] Comment on above: Performed By: #### L URIN ####[facility] [place], [place] [address] Urobilinogen,Ur 0.2 EU/dL Normal 0.0-1.0 [facility] Comment on above: Performed By: #### L URIN ####[facility] [place], [place] [address] WBC (Leukocytes) Negative Normal Negative [facility] Comment on above: Performed By: #### L URIN ####[facility] [place], [place] [address] No Panel Information Enteric Bacteriology [facility] Work Phone: SARS-CoV-2 & FLU Antigen (Rapid) [facility] Work Phone: Vital Signs Date Time Vital Sign Value Performing Clinician Facility 02-05-2025 17:43-0400 Body temperature 97.7 [degF] Dr. Denise Uribe MD Work Phone: [facility] 02-05-2025 17:43-0400 Diastolic blood pressure 62 mm[Hg] Dr. Denise Uribe MD Work Phone: [facility] 02-05-2025 17:43-0400 Heart rate 80 /min Dr. Denise Uribe MD Work Phone: [facility] 02-05-2025 17:43-0400 Respiratory rate 18 /min Dr. Denise Uribe MD Work Phone: [facility] 02-05-2025 17:43-0400 SaO2% (BldA) [Mass fraction] 95 % Dr. Denise Uribe MD Work Phone: [facility] 02-05-2025 17:43-0400 Systolic blood pressure 111 mm[Hg] Dr. Denise Uribe MD Work Phone: [facility] 02-05-2025 12:57-0400 Body height 149.[address] Denise Uribe MD Work Phone: [facility] 02-05-2025 12:57-0400 Body mass index (BMI) [Ratio] 32.1 kg/m2 Dr. Denise Uribe MD Work Phone: [facility] 02-05-2025 12:57-0400 Body weight 72.[address] Denise Uribe MD Work Phone: [facility] 01-06-2025 11:21-0400 Body height 149.[address] Denise Uribe MD Work Phone: [facility] 01-06-2025 11:21-0400 Body mass index (BMI) [Ratio] 31.7 kg/m2 Dr. Denise Uribe MD Work Phone: [facility] 01-06-2025 11:21-0400 Body weight 71.[address] Denise Uribe MD Work Phone: [facility] 01-06-2025 11:21-0400 Diastolic blood pressure 71 mm[Hg] Dr. Denise Uribe MD Work Phone: [facility] 01-06-2025 11:21-0400 Heart rate 67 /min Dr. Denise Uribe MD Work Phone: [facility] 01-06-2025 11:21-0400 SaO2% (BldA) [Mass fraction] 97 % Dr. Denise Uribe MD Work Phone: [facility] 01-06-2025 11:21-0400 Systolic blood pressure 169 mm[Hg] Dr. Denise Uribe MD Work Phone: [facility] 11-15-2024 22:13-0400 Body temperature 98.3 [degF] Dr. Denise Uribe MD Work Phone: [facility] 11-15-2024 22:13-0400 Diastolic blood pressure 74 mm[Hg] Dr. Denise Uribe MD Work Phone: [facility] 11-15-2024 22:13-0400 Heart rate 74 /min Dr. Denise Uribe MD Work Phone: [facility] 11-15-2024 22:13-0400 Respiratory rate 18 /min Dr. Denise Uribe MD Work Phone: [facility] 11-15-2024 22:13-0400 SaO2% (BldA) [Mass fraction] 97 % Dr. Denise Uribe MD Work Phone: [facility] 11-15-2024 22:13-0400 Systolic blood pressure 100 mm[Hg] Dr. Denise Uribe MD Work Phone: [facility] 11-15-2024 18:17-0400 Body height 149.[address] Denise Uribe MD Work Phone: [facility] 11-15-2024 18:17-0400 Body mass index (BMI) [Ratio] 32.9 kg/m2 Dr. Denise Uribe MD Work Phone: [facility] 11-15-2024 18:17-0400 Body weight 73.[address] Denise Uribe MD Work Phone: [facility] 09-19-2024 10:06-0400 Body temperature 97.3 [degF] Dr. Denise Uribe MD Work Phone: [facility] 09-19-2024 10:06-0400 Diastolic blood pressure 51 mm[Hg] Dr. Denise Uribe MD Work Phone: [facility] 09-19-2024 10:06-0400 Heart rate 62 /min Dr. Denise Uribe MD Work Phone: [facility] 09-19-2024 10:06-0400 Respiratory rate 16 /min Dr. Denise Uribe MD Work Phone: [facility] 09-19-2024 10:06-0400 SaO2% (BldA) [Mass fraction] 96 % Dr. Denise Uribe MD Work Phone: [facility] 09-19-2024 10:06-0400 Systolic blood pressure 102 mm[Hg] Dr. Denise Uribe MD Work Phone: [facility] 09-19-2024 09:48-0400 Body weight 69.[address] Denise Uribe MD Work Phone: [facility] 09-19-2024 05:10-0400 Body mass index (BMI) [Ratio] 30.9 kg/m2 Dr. Denise Uribe MD Work Phone: [facility] 09-17-2024 22:26-0400 Body temperature 98 [degF] Dr. Denise Uribe MD Work Phone: [facility] 09-17-2024 22:26-0400 Diastolic blood pressure 75 mm[Hg] Dr. Denise Uribe MD Work Phone: [facility] 09-17-2024 22:26-0400 Heart rate 76 /min Dr. Denise Uribe MD Work Phone: [facility] 09-17-2024 22:26-0400 Respiratory rate 16 /min Dr. Denise Uribe MD Work Phone: [facility] 09-17-2024 22:26-0400 SaO2% (BldA) [Mass fraction] 95 % Dr. Denise Uribe MD Work Phone: [facility] 09-17-2024 22:26-0400 Systolic blood pressure 126 mm[Hg] Dr. Denise Uribe MD Work Phone: [facility] 09-17-2024 19:02-0400 Body mass index (BMI) [Ratio] 30.9 kg/m2 Dr. Denise Uribe MD Work Phone: [facility] 09-17-2024 19:02-0400 Body weight 69.[address] Denise Uribe MD Work Phone: [facility] 09-17-2024 17:05-0400 Body height 149.[address] Denise Uribe MD Work Phone: [facility] 08-07-2024 14:55-0400 Body temperature 98.2 [degF] Dr. Denise Uribe MD Work Phone: [facility] 08-07-2024 14:55-0400 Diastolic blood pressure 52 mm[Hg] Dr. Denise Uribe MD Work Phone: [facility] 08-07-2024 14:55-0400 Heart rate 62 /min Dr. Denise Uribe MD Work Phone: [facility] 08-07-2024 14:55-0400 Respiratory rate 16 /min Dr. Denise Uribe MD Work Phone: [facility] 08-07-2024 14:55-0400 SaO2% (BldA) [Mass fraction] 96 % Dr. Denise Uribe MD Work Phone: [facility] 08-07-2024 14:55-0400 Systolic blood pressure 109 mm[Hg] Dr. Denise Uribe MD Work Phone: [facility] 08-07-2024 13:06-0400 Body height 149.[address] Denise Uribe MD Work Phone: [facility] 08-07-2024 13:06-0400 Body mass index (BMI) [Ratio] 32.3 kg/m2 Dr. Denise Uribe MD Work Phone: [facility] 08-07-2024 13:06-0400 Body weight 72.[address] Denise Uribe MD Work Phone: [facility] 07-24-2024 11:29-0500 Body temperature 98 [degF] Dr. Denise Uribe MD Work Phone: [facility] 07-24-2024 11:29-0500 Diastolic blood pressure 62 mm[Hg] Dr. Denise Uribe MD Work Phone: [facility] 07-24-2024 11:29-0500 Heart rate 64 /min Dr. Denise Uribe MD Work Phone: [facility] 07-24-2024 11:29-0500 Respiratory rate 18 /min Dr. Denise Uribe MD Work Phone: [facility] 07-24-2024 11:29-0500 SaO2% (BldA) [Mass fraction] 96 % Dr. Denise Uribe MD Work Phone: [facility] 07-24-2024 11:29-0500 Systolic blood pressure 112 mm[Hg] Dr. Denise Uribe MD Work Phone: [facility] 06-18-2024 12:42-0500 Body temperature 98.6 [degF] Dr. Denise Uribe MD Work Phone: [facility] 06-18-2024 12:42-0500 Diastolic blood pressure 80 mm[Hg] Dr. Denise Uribe MD Work Phone: [facility] 06-18-2024 12:42-0500 Heart rate 69 /min Dr. Denise Uribe MD Work Phone: [facility] 06-18-2024 12:42-0500 SaO2% (BldA) [Mass fraction] 96 % Dr. Denise Uribe MD Work Phone: [facility] 06-18-2024 12:42-0500 Systolic blood pressure 147 mm[Hg] Dr. Denise Uribe MD Work Phone: [facility] 06-18-2024 07:41-0500 Respiratory rate 16 /min Dr. Denise Uribe MD Work Phone: [facility] 06-18-2024 05:56-0500 Body mass index (BMI) [Ratio] 30.2 kg/m2 Dr. Denise Uribe MD Work Phone: [facility] 06-18-2024 05:56-0500 Body weight 67.[address] Denise Uribe MD Work Phone: [facility] 06-16-2024 20:39-0500 Body height 149.[address] Denise Uribe MD Work Phone: [facility] 05-22-2024 11:35-0500 Body temperature 97.6 [degF] Dr. Denise Uribe MD Work Phone: [facility] 05-22-2024 11:35-0500 Diastolic blood pressure 68 mm[Hg] Dr. Denise Uribe MD Work Phone: [facility] 05-22-2024 11:35-0500 Heart rate 60 /min Dr. Denise Uribe MD Work Phone: [facility] 05-22-2024 11:35-0500 Respiratory rate 16 /min Dr. Denise Uribe MD Work Phone: [facility] 05-22-2024 11:35-0500 SaO2% (BldA) [Mass fraction] 96 % Dr. Denise Uribe MD Work Phone: [facility] 05-22-2024 11:35-0500 Systolic blood pressure 150 mm[Hg] Dr. Denise Uribe MD Work Phone: [facility] 05-22-2024 05:37-0500 Body mass index (BMI) [Ratio] 31 kg/m2 Dr. Denise Uribe MD Work Phone: [facility] 05-22-2024 05:37-0500 Body weight 69.[address] Denise Uribe MD Work Phone: [facility] 05-18-2024 21:09-0500 Inhaled oxygen flow rate 2 L/min Dr. Denise Uribe MD Work Phone: [facility] 09-14-2023 14:18-0400 Body height 149.[address] Denise Uribe Work Phone: [facility] 09-14-2023 14:18-0400 Body temperature 97.3 [degF] Dr. Denise Uribe Work Phone: [facility] 09-14-2023 14:18-0400 Diastolic blood pressure 84 mm[Hg] Dr. Denise Uribe Work Phone: [facility] 09-14-2023 14:18-0400 Heart rate 102 /min Dr. Denise Uribe Work Phone: [facility] 09-14-2023 14:18-0400 Respiratory rate 16 /min Dr. Denise Uribe Work Phone: [facility] 09-14-2023 14:18-0400 Systolic blood pressure 144 mm[Hg] Dr. Denise Uribe Work Phone: [facility] 09-11-2023 13:44-0400 Body temperature 98.4 [degF] Dr. Denise Uribe Work Phone: [facility] 09-11-2023 13:44-0400 Diastolic blood pressure 69 mm[Hg] Dr. Denise Uribe Work Phone: [facility] 09-11-2023 13:44-0400 Heart rate 78 /min Dr. Denise Uribe Work Phone: [facility] 09-11-2023 13:44-0400 Respiratory rate 16 /min Dr. Denise Uribe Work Phone: [facility] 09-11-2023 13:44-0400 SaO2% (BldA) [Mass fraction] 97 % Dr. Denise Uribe Work Phone: [facility] 09-11-2023 13:44-0400 Systolic blood pressure 129 mm[Hg] Dr. Denise Uribe Work Phone: [facility] 09-11-2023 10:37-0400 Body height 150.[address] Denise Uribe Work Phone: [facility] 09-11-2023 10:37-0400 Body mass index (BMI) [Ratio] 33.2 kg/m2 Dr. Denise Uribe Work Phone: [facility] 09-11-2023 10:37-0400 Body weight 74.[address] Denise Uribe Work Phone: [facility] 08-18-2023 00:11-0400 Diastolic blood pressure 66 mm[Hg] Dr. Denise Uribe Work Phone: [facility] 08-18-2023 00:11-0400 Heart rate 66 /min Dr. Denise Uribe Work Phone: [facility] 08-18-2023 00:11-0400 SaO2% (BldA) [Mass fraction] 99 % Dr. Denise Uribe Work Phone: [facility] 08-18-2023 00:11-0400 Systolic blood pressure 108 mm[Hg] Dr. Denise Uribe Work Phone: [facility] 08-18-2023 00:09-0400 Body temperature 97.9 [degF] Dr. Denise Uribe Work Phone: [facility] 08-18-2023 00:09-0400 Body weight 72.[address] Denise Uribe Work Phone: [facility] 07-21-2023 12:51-0500 Body height 149.[address] Denise Uribe Work Phone: [facility] 07-21-2023 12:51-0500 Body mass index (BMI) [Ratio] 30.4 kg/m2 Dr. Denise Uribe Work Phone: [facility] 07-21-2023 12:51-0500 Body weight 68.[address] Denise rUibe Work Phone: [facility] 07-21-2023 12:51-0500 Diastolic blood pressure 81 mm[Hg] Dr. Denise Uribe Work Phone: [facility] 07-21-2023 12:51-0500 Heart rate 63 /min Dr. Denise Uribe Work Phone: [facility] 07-21-2023 12:51-0500 Respiratory rate 18 /min Dr. Denise Uribe Work Phone: [facility] 07-21-2023 12:51-0500 SaO2% (BldA) [Mass fraction] 99 % Dr. Denise Uribe Work Phone: [facility] 07-21-2023 12:51-0500 Systolic blood pressure 141 mm[Hg] Dr. Denise Uribe Work Phone: [facility] 07-11-2023 14:42-0500 Body height 149.86 cm [employer] Devi Delgado [employer] Work Phone: [facility] 07-11-2023 14:42-0500 Body mass index (BMI) [Ratio] 30.7 kg/m2 [employer] Devi Delgado [employer] Work Phone: [facility] 07-11-2023 14:42-0500 Body temperature 97.9 [degF] [employer] Devi Delgado [employer] Work Phone: [facility] 07-11-2023 14:42-0500 Body weight 68.94 kg [employer] Devi Delgado [employer] Work Phone: [facility] 07-11-2023 14:42-0500 Diastolic blood pressure 80 mm[Hg] [employer] Devi Delgado [employer] Work Phone: [facility] 07-11-2023 14:42-0500 Heart rate 72 /min [employer] Devi Delgado [employer] Work Phone: [facility] 07-11-2023 14:42-0500 Respiratory rate 18 /min [employer] Devi Delgado [employer] Work Phone: [facility] 07-11-2023 14:42-0500 SaO2% (BldA) [Mass fraction] 98 % [employer] Devi Delgado [employer] Work Phone: [facility] 07-11-2023 14:42-0500 Systolic blood pressure 124 mm[Hg] [employer] Devi Delgado [employer] Work Phone: [facility] 07-07-2023 15:13-0500 Body mass index (BMI) [Ratio] 30.4 kg/m2 [employer] Devi Delgado [employer] Work Phone: [facility] 07-07-2023 15:13-0500 Body weight 68.49 kg [employer] Devi Delgado [employer] Work Phone: [facility] 07-07-2023 15:13-0500 Diastolic blood pressure 63 mm[Hg] [employer] Devi Delgado [employer] Work Phone: [facility] 07-07-2023 15:13-0500 Heart rate 68 /min [employer] Devi Delgado [employer] Work Phone: [facility] 07-07-2023 15:13-0500 Respiratory rate 20 /min [employer] Devi Delgado [employer] Work Phone: [facility] 07-07-2023 15:13-0500 SaO2% (BldA) [Mass fraction] 94 % [employer] Devi Delgado [employer] Work Phone: [facility] 07-07-2023 15:13-0500 Systolic blood pressure 120 mm[Hg] [employer] Devi Delgado [employer] Work Phone: [facility] 07-07-2023 14:04-0500 Body mass index (BMI) [Ratio] 30.5 kg/m2 [employer] Devi Delgado [employer] Work Phone: [facility] 07-07-2023 14:04-0500 Body temperature 98.7 [degF] [employer] Devi Delgado [employer] Work Phone: [facility] 07-07-2023 14:04-0500 Body weight 68.66 kg [employer] Devi Delgado [employer] Work Phone: [facility] 07-07-2023 14:04-0500 Diastolic blood pressure 66 mm[Hg] [employer] Devi Delgado [employer] Work Phone: [facility] 07-07-2023 14:04-0500 Heart rate 70 /min [employer] Devi Delgado [employer] Work Phone: [facility] 07-07-2023 14:04-0500 Respiratory rate 16 /min [employer] Devi Delgado [employer] Work Phone: [facility] 07-07-2023 14:04-0500 SaO2% (BldA) [Mass fraction] 97 % [employer] Edvi Delgado [employer] Work Phone: [facility] 07-07-2023 14:04-0500 Systolic blood pressure 110 mm[Hg] [employer] Devi Delgado [employer] Work Phone: [facility] 05-08-2023 14:56-0500 Body mass index (BMI) [Ratio] 30.3 kg/m2 [employer] Devi Delgado [employer] Work Phone: [facility] 05-08-2023 14:56-0500 Body temperature 98.7 [degF] [employer] Devi Delgado [employer] Work Phone: [facility] 05-08-2023 14:56-0500 Body weight 68.15 kg [employer] Devi Delgado [employer] Work Phone: [facility] 05-08-2023 14:56-0500 Diastolic blood pressure 76 mm[Hg] [employer] Devi Delgado [employer] Work Phone: [facility] 05-08-2023 14:56-0500 Heart rate 70 /min [employer] Devi Delgado [employer] Work Phone: [facility] 05-08-2023 14:56-0500 Respiratory rate 16 /min [employer] Devi Delgado [employer] Work Phone: [facility] 05-08-2023 14:56-0500 SaO2% (BldA) [Mass fraction] 97 % [employer] Devi Delgado [employer] Work Phone: [facility] 05-08-2023 14:56-0500 Systolic blood pressure 146 mm[Hg] [employer] Devi Delgado [employer] Work Phone: [facility] 03-31-2023 14:55-0500 Body height 149.86 cm [employer] Devi Delgado [employer] Work Phone: [facility] 03-31-2023 14:55-0500 Body mass index (BMI) [Ratio] 29 kg/m2 [employer] Devi Delgado [employer] Work Phone: [facility] 03-31-2023 14:55-0500 Body temperature 98.3 [degF] [employer] Devi Delgado [employer] Work Phone: [facility] 03-31-2023 14:55-0500 Body weight 65.31 kg [employer] Devi Delgado [employer] Work Phone: [facility] 03-31-2023 14:55-0500 Diastolic blood pressure 74 mm[Hg] [employer] Devi Delgado [employer] Work Phone: [facility] 03-31-2023 14:55-0500 Heart rate 76 /min [employer] Devi Delgado [employer] Work Phone: [facility] 03-31-2023 14:55-0500 Respiratory rate 16 /min [employer] Devi Delgado [employer] Work Phone: [facility] 03-31-2023 14:55-0500 SaO2% (BldA) [Mass fraction] 98 % [employer] Devi Delgado [employer] Work Phone: [facility] 03-31-2023 14:55-0500 Systolic blood pressure 140 mm[Hg] [employer] Devi Delgado [employer] Work Phone: [facility] 03-21-2023 14:54-0400 Body mass index (BMI) [Ratio] 29.2 kg/m2 [employer] Devi Delgado [employer] Work Phone: [facility] 03-21-2023 14:54-0400 Body weight 65.77 kg [employer] Devi Delgado [employer] Work Phone: [facility] 03-21-2023 14:54-0400 Diastolic blood pressure 70 mm[Hg] [employer] Devi Delgado [employer] Work Phone: [facility] 03-21-2023 14:54-0400 Heart rate 72 /min [employer] Devi Delgado [employer] Work Phone: [facility] 03-21-2023 14:54-0400 Systolic blood pressure 112 mm[Hg] [employer] Devi Delgado [employer] Work Phone: [facility] 02-16-2023 13:52-0400 Body mass index (BMI) [Ratio] 28.8 kg/m2 [employer] Devi Delgado [employer] Work Phone: [facility] 02-16-2023 13:52-0400 Body temperature 96.8 [degF] [employer] Devi Delgado [employer] Work Phone: [facility] 02-16-2023 13:52-0400 Body weight 64.63 kg [employer] Devi Delgado [employer] Work Phone: [facility] 02-16-2023 13:52-0400 Diastolic blood pressure 74 mm[Hg] [employer] Devi Delgado [employer] Work Phone: [facility] 02-16-2023 13:52-0400 Heart rate 75 /min [employer] Devi Delgado [employer] Work Phone: [facility] 02-16-2023 13:52-0400 Respiratory rate 18 /min [employer] Devi Delgado [employer] Work Phone: [facility] 02-16-2023 13:52-0400 SaO2% (BldA) [Mass fraction] 99 % [employer] Devi Delgado [employer] Work Phone: [facility] 02-16-2023 13:52-0400 Systolic blood pressure 138 mm[Hg] [employer] Devi Delgado [employer] Work Phone: [facility] 01-24-2023 16:11-0400 Diastolic blood pressure 86 mm[Hg] [employer] Devi Delgado [employer] Work Phone: [facility] 01-24-2023 16:11-0400 Systolic blood pressure 136 mm[Hg] [employer] Devi Delgado [employer] Work Phone: [facility] 01-24-2023 14:05-0400 Body mass index (BMI) [Ratio] 28.3 kg/m2 [employer] Devi Delgado [employer] Work Phone: [facility] 01-24-2023 14:05-0400 Body temperature 96.1 [degF] [employer] Devi Delgado [employer] Work Phone: [facility] 01-24-2023 14:05-0400 Body weight 63.61 kg [employer] Devi Delgado [employer] Work Phone: [facility] 01-24-2023 14:05-0400 Heart rate 74 /min [employer] Devi Delgado [employer] Work Phone: [facility] 01-24-2023 14:05-0400 Respiratory rate 18 /min [employer] Devi Delgado [employer] Work Phone: [facility] 01-24-2023 14:05-0400 SaO2% (BldA) [Mass fraction] 98 % [employer] Devi Delgado [employer] Work Phone: [facility] 11-17-2022 15:20-0400 Body height 149.[address] Pat Bennett Work Phone: [facility] 11-17-2022 15:20-0400 Body mass index (BMI) [Ratio] 27.8 kg/m2 Dr. Pat Bennett Work Phone: [facility] 11-17-2022 15:20-0400 Body temperature 97.8 [degF] Dr. Pat Bennett Work Phone: [facility] 11-17-2022 15:20-0400 Body weight 62.[address] Pat Bennett Work Phone: [facility] 11-17-2022 15:20-0400 Diastolic blood pressure 64 mm[Hg] Dr. Pat Bennett Work Phone: [facility] 11-17-2022 15:20-0400 Heart rate 44 /min Dr. Pat Bennett Work Phone: [facility] 11-17-2022 15:20-0400 Respiratory rate 16 /min Dr. Pat Bennett Work Phone: [facility] 11-17-2022 15:20-0400 SaO2% (BldA) [Mass fraction] 99 % Dr. Pat Bennett Work Phone: [facility] 11-17-2022 15:20-0400 Systolic blood pressure 144 mm[Hg] Dr. Pat Bennett Work Phone: [facility] 09-27-2022 15:50-0400 Body mass index (BMI) [Ratio] 26.6 kg/m2 Dr. Pat Bennett Work Phone: [facility] 09-27-2022 15:50-0400 Body temperature 98.4 [degF] Dr. Pta Bennett Work Phone: [facility] 09-27-2022 15:50-0400 Body weight 59.[address] Pat Bennett Work Phone: [facility] 09-27-2022 15:50-0400 Diastolic blood pressure 55 mm[Hg] Dr. Pat Bennett Work Phone: [facility] 09-27-2022 15:50-0400 Heart rate 58 /min Dr. Pat Bennett Work Phone: [facility] 09-27-2022 15:50-0400 Respiratory rate 16 /min Dr. Pat Bennett Work Phone: [facility] 09-27-2022 15:50-0400 SaO2% (BldA) [Mass fraction] 94 % Dr. Pat Bennett Work Phone: [facility] 09-27-2022 15:50-0400 Systolic blood pressure 126 mm[Hg] Dr. Pat Bennett Work Phone: [facility] 09-15-2022 17:56-0400 Heart rate 70 /min Dr. Pat Bennett Work Phone: [facility] 09-15-2022 17:56-0400 Respiratory rate 24 /min Dr. Pat Bennett Work Phone: [facility] 09-15-2022 17:56-0400 SaO2% (BldA) [Mass fraction] 94 % Dr. Pat Bennett Work Phone: [facility] 09-15-2022 16:57-0400 Diastolic blood pressure 78 mm[Hg] Dr. Pat Bennett Work Phone: [facility] 09-15-2022 16:57-0400 Systolic blood pressure 147 mm[Hg] Dr. Pat Bennett Work Phone: [facility] 09-15-2022 15:44-0400 Body height 149.[address] Pat Bennett Work Phone: [facility] 09-15-2022 15:44-0400 Body mass index (BMI) [Ratio] 27.7 kg/m2 Dr. Pat Bennett Work Phone: [facility] 09-15-2022 15:44-0400 Body temperature 97.9 [degF] Dr. Pat Bennett Work Phone: [facility] 09-15-2022 15:44-0400 Body weight 62.[address] Pat Bennett Work Phone: [facility] 08-17-2022 08:06-0400 Body height 149.[address] Pat Bennett Work Phone: [facility] 08-17-2022 08:06-0400 Body mass index (BMI) [Ratio] 26.5 kg/m2 Dr. Pat Bennett Work Phone: [facility] 08-17-2022 08:06-0400 Body temperature 97.8 [degF] Dr. Pat Bennett Work Phone: [facility] 08-17-2022 08:06-0400 Body weight 59.[address] Pat Bennett Work Phone: [facility] 08-17-2022 08:06-0400 Diastolic blood pressure 64 mm[Hg] Dr. Pat Bennett Work Phone: [facility] 08-17-2022 08:06-0400 Heart rate 45 /min Dr. Pat Bennett Work Phone: [facility] 08-17-2022 08:06-0400 Respiratory rate 18 /min Dr. Pat Bennett Work Phone: [facility] 08-17-2022 08:06-0400 SaO2% (BldA) [Mass fraction] 98 % Dr. Pat Bennett Work Phone: [facility] 08-17-2022 08:06-0400 Systolic blood pressure 124 mm[Hg] Dr. Pat Bennett Work Phone: [facility] 08-15-2022 20:30-0400 Diastolic blood pressure 71 mm[Hg] Text Entry Free [facility] 08-15-2022 20:30-0400 Heart rate 56 /min Text Entry Free [facility] 08-15-2022 20:30-0400 Respiratory rate 17 /min Text Entry Free [facility] 08-15-2022 20:30-0400 SaO2% (BldA) [Mass fraction] 95 % Text Entry Free [facility] 08-15-2022 20:30-0400 Systolic blood pressure 162 mm[Hg] Text Entry Free [facility] 08-15-2022 14:22-0400 Body height 180.3 cm Text Entry Free [facility] 08-15-2022 14:22-0400 Body temperature 98.24 [degF] Text Entry Free [facility] 08-15-2022 14:22-0400 Body weight 58.1 kg Text Entry Free [facility] 08-08-2022 09:48-0400 Body temperature 98.4 [degF] Dr. Pat Bennett Work Phone: [facility] 08-08-2022 09:48-0400 Diastolic blood pressure 48 mm[Hg] Dr. Pat Bennett Work Phone: [facility] 08-08-2022 09:48-0400 Heart rate 53 /min Dr. Pat Bennett Work Phone: [facility] 08-08-2022 09:48-0400 Respiratory rate 18 /min Dr. Pat Bennett Work Phone: [facility] 08-08-2022 09:48-0400 SaO2% (BldA) [Mass fraction] 99 % Dr. Pat Bennett Work Phone: [facility] 08-08-2022 09:48-0400 Systolic blood pressure 120 mm[Hg] Dr. Pat Bennett Work Phone: [facility] 08-05-2022 14:06-0400 Body height 149.[address] Pat Bennett Work Phone: [facility] 08-05-2022 14:06-0400 Body weight 61.[address] Pat Bennett Work Phone: [facility] 08-04-2022 22:40-0400 Body mass index (BMI) [Ratio] 27.3 kg/m2 Dr. Pat Bennett Work Phone: [facility] 08-04-2022 19:37-0400 Body temperature 98.1 [degF] Dr. Pat Bennett Work Phone: [facility] 08-04-2022 19:37-0400 Diastolic blood pressure 62 mm[Hg] Dr. Pat Bennett Work Phone: [facility] 08-04-2022 19:37-0400 Heart rate 76 /min Dr. Pat Bennett Work Phone: [facility] 08-04-2022 19:37-0400 Respiratory rate 18 /min Dr. Pat Bennett Work Phone: [facility] 08-04-2022 19:37-0400 SaO2% (BldA) [Mass fraction] 97 % Dr. Pat Bennett Work Phone: [facility] 08-04-2022 19:37-0400 Systolic blood pressure 164 mm[Hg] Dr. Pat Bennett Work Phone: [facility] 08-04-2022 16:52-0400 Body height 149.[address] Pat Bennett Work Phone: [facility] 08-04-2022 16:52-0400 Body mass index (BMI) [Ratio] 28.1 kg/m2 Dr. Pat Bennett Work Phone: [facility] 08-04-2022 16:52-0400 Body weight 63.[address] Pat Bennett Work Phone: [facility] 07-20-2022 16:29-0500 Diastolic blood pressure 62 mm[Hg] Dr. Pat Bennett Work Phone: [facility] 07-20-2022 16:29-0500 Heart rate 60 /min Dr. Pat Bennett Work Phone: [facility] 07-20-2022 16:29-0500 Respiratory rate 16 /min Dr. Pat Bennett Work Phone: [facility] 07-20-2022 16:29-0500 SaO2% (BldA) [Mass fraction] 96 % Dr. Pat Bennett Work Phone: [facility] 07-20-2022 16:29-0500 Systolic blood pressure 148 mm[Hg] Dr. Pat Bennett Work Phone: [facility] 07-20-2022 12:50-0500 Body mass index (BMI) [Ratio] 26.4 kg/m2 Dr. Pat Bennett Work Phone: [facility] 07-20-2022 12:50-0500 Body temperature 97.9 [degF] Dr. Pat Bennett Work Phone: [facility] 07-20-2022 12:50-0500 Body weight 59.[address] Pat Bennett Work Phone: [facility] 04-11-2022 14:31-0500 Body temperature 97.6 [degF] Dr. Pat Bennett Work Phone: [facility] 04-11-2022 14:31-0500 Body weight 59.[address] Pat Bennett Work Phone: [facility] 04-11-2022 14:31-0500 Diastolic blood pressure 81 mm[Hg] Dr. Pat Bennett Work Phone: [facility] 04-11-2022 14:31-0500 Heart rate 60 /min Dr. Pat Bennett Work Phone: [facility] 04-11-2022 14:31-0500 Respiratory rate 16 /min Dr. Pat Bennett Work Phone: [facility] 04-11-2022 14:31-0500 SaO2% (BldA) [Mass fraction] 95 % Dr. Pat Bennett Work Phone: [facility] 04-11-2022 14:31-0500 Systolic blood pressure 151 mm[Hg] Dr. Pat Bennett Work Phone: [facility] 04-04-2022 14:55-0500 Body temperature 97.8 [degF] Dr. Pat Bennett Work Phone: [facility] Work Phone: 04-04-2022 14:55-0500 Body weight 59.[address] Pat Bennett Work Phone: [facility] Work Phone: 04-04-2022 14:55-0500 Diastolic blood pressure 80 mm[Hg] Dr. Pat Bennett Work Phone: [facility] Work Phone: 04-04-2022 14:55-0500 Heart rate 61 /min Dr. Pat Bennett Work Phone: [facility] Work Phone: 04-04-2022 14:55-0500 Respiratory rate 16 /min Dr. Pat Bennett Work Phone: [facility] Work Phone: 04-04-2022 14:55-0500 SaO2% (BldA) [Mass fraction] 94 % Dr. Pat Bennett Work Phone: [facility] Work Phone: 04-04-2022 14:55-0500 Systolic blood pressure 140 mm[Hg] Dr. Pat Bnenett Work Phone: [facility] Work Phone: 03-28-2022 15:17-0500 Body height 149.[address] Pat Bennett Work Phone: [facility] Work Phone: 03-28-2022 15:17-0500 Body mass index (BMI) [Ratio] 27.2 kg/m2 Dr. Pat Bennett Work Phone: [facility] Work Phone: 03-28-2022 15:17-0500 Body temperature 98.9 [degF] Dr. Pat Bennett Work Phone: [facility] Work Phone: 03-28-2022 15:17-0500 Body weight 61.[address] Pat Bennett Work Phone: [facility] Work Phone: 03-28-2022 15:17-0500 Diastolic blood pressure 70 mm[Hg] Dr. Pat Bennett Work Phone: [facility] Work Phone: 03-28-2022 15:17-0500 Heart rate 62 /min Dr. Pat Bennett Work Phone: [facility] Work Phone: 03-28-2022 15:17-0500 Respiratory rate 18 /min Dr. Pat Bennett Work Phone: [facility] Work Phone: 03-28-2022 15:17-0500 SaO2% (BldA) [Mass fraction] 98 % Dr. Pat Bennett Work Phone: [facility] Work Phone: 03-28-2022 15:17-0500 Systolic blood pressure 176 mm[Hg] Dr. Pat Bennett Work Phone: [facility] Work Phone: 02-17-2022 15:59-0400 Body height 149.86 cm Servando Clay DO Work Phone: [facility] Work Phone: 02-17-2022 15:59-0400 Body mass index (BMI) [Ratio] 26.56 kg/m2 Servando Clay DO Work Phone: [facility] Work Phone: 02-17-2022 15:59-0400 Body surface area Derived from formula 1.54 m2 Servando Clay DO Work Phone: [facility] Work Phone: 02-17-2022 15:59-0400 Body weight 59.65 kg Servando Clay DO Work Phone: [facility] Work Phone: 02-17-2022 15:59-0400 Diastolic blood pressure 82 mm[Hg] Servando Clay DO Work Phone: [facility] Work Phone: 02-17-2022 15:59-0400 Systolic blood pressure 120 mm[Hg] Servando Clay DO Work Phone: [facility] Work Phone: 02-07-2022 13:14-0400 Body height 149.[address] Pat Bennett Work Phone: [facility] Work Phone: 02-07-2022 13:14-0400 Body mass index (BMI) [Ratio] 25.9 kg/m2 Dr. Pat Bennett Work Phone: [facility] Work Phone: 02-07-2022 13:14-0400 Body temperature 96.2 [degF] Dr. Pat Bennett Work Phone: [facility] Work Phone: 02-07-2022 13:14-0400 Body weight 58.[address] Pat Bennett Work Phone: [facility] Work Phone: 02-07-2022 13:14-0400 Diastolic blood pressure 70 mm[Hg] Dr. Pat Bennett Work Phone: [facility] Work Phone: 02-07-2022 13:14-0400 Heart rate 53 /min Dr. Pat Bennett Work Phone: [facility] Work Phone: 02-07-2022 13:14-0400 Respiratory rate 18 /min Dr. aPt Bennett Work Phone: [facility] Work Phone: 02-07-2022 13:14-0400 SaO2% (BldA) [Mass fraction] 94 % Dr. Pat Bennett Work Phone: [facility] Work Phone: 02-07-2022 13:14-0400 Systolic blood pressure 153 mm[Hg] Dr. Pat Bennett Work Phone: [facility] Work Phone: 01-14-2022 13:05-0400 Body height 149.[address] Pat Bennett Work Phone: [facility] Work Phone: 01-14-2022 13:05-0400 Body mass index (BMI) [Ratio] 25.9 kg/m2 Dr. Pat Bennett Work Phone: [facility] Work Phone: 01-14-2022 13:05-0400 Body weight 58.[address] Pat Bennett Work Phone: [facility] Work Phone: 01-14-2022 13:05-0400 Diastolic blood pressure 70 mm[Hg] Dr. Pat Bennett Work Phone: [facility] Work Phone: 01-14-2022 13:05-0400 Heart rate 56 /min Dr. Pat Bennett Work Phone: [facility] Work Phone: 01-14-2022 13:05-0400 Respiratory rate 18 /min Dr. Pat Bennett Work Phone: [facility] Work Phone: 01-14-2022 13:05-0400 Systolic blood pressure 120 mm[Hg] Dr. Pat Bennett Work Phone: [facility] Work Phone: 01-06-2022 13:38-0400 Body height 149.86 cm Servando Clay DO Work Phone: [facility] Work Phone: 01-06-2022 13:38-0400 Body mass index (BMI) [Ratio] 25.65 kg/m2 Servando Clay DO Work Phone: [facility] Work Phone: 01-06-2022 13:38-0400 Body surface area Derived from formula 1.52 m2 Servando Clay DO Work Phone: [facility] [facility] Work Phone: 01-06-2022 13:38-0400 Body weight 57.61 kg Servando Clay DO Work Phone: [facility] Work Phone: 01-06-2022 13:38-0400 Diastolic blood pressure 70 mm[Hg] Servando Clay DO Work Phone: [facility] Work Phone: 01-06-2022 13:38-0400 Systolic blood pressure 124 mm[Hg] Servando Clay DO Work Phone: [facility] Work Phone: 12-10-2021 13:26-0400 Body height 149.[address] Pat Bennett Work Phone: [facility] Work Phone: 12-10-2021 13:26-0400 Body mass index (BMI) [Ratio] 25.6 kg/m2 Dr. Pat Bennett Work Phone: [facility] Work Phone: 12-10-2021 13:26-0400 Body temperature 97 [degF] Dr. Pat Bennett Work Phone: [facility] Work Phone: 12-10-2021 13:26-0400 Body weight 57.[address] Pat Bennett Work Phone: [facility] Work Phone: 12-10-2021 13:26-0400 Diastolic blood pressure 82 mm[Hg] Dr. Pat Bennett Work Phone: [facility] Work Phone: 12-10-2021 13:26-0400 Heart rate 52 /min Dr. Pat Bennett Work Phone: [facility] Work Phone: 12-10-2021 13:26-0400 Respiratory rate 18 /min Dr. Pat Bennett Work Phone: [facility] Work Phone: 12-10-2021 13:26-0400 SaO2% (BldA) [Mass fraction] 97 % Dr. Pat Bennett Work Phone: [facility] Work Phone: 12-10-2021 13:26-0400 Systolic blood pressure 140 mm[Hg] Dr. Pat Bennett Work Phone: [facility] Work Phone: 11-16-2021 11:05-0400 Body temperature 98.2 [degF] Dr. Pat Bennett Work Phone: [facility] Work Phone: 11-16-2021 11:05-0400 Diastolic blood pressure 62 mm[Hg] Dr. Pat Bennett Work Phone: [facility] Work Phone: 11-16-2021 11:05-0400 Heart rate 52 /min Dr. Pat Bennett Work Phone: [facility] Work Phone: 11-16-2021 11:05-0400 Respiratory rate 17 /min Dr. Pat Bennett Work Phone: [facility] Work Phone: 11-16-2021 11:05-0400 Systolic blood pressure 104 mm[Hg] Dr. Pat Bennett Work Phone: [facility] Work Phone: 11-16-2021 10:48-0400 Body height 149.[address] Pat Bennett Work Phone: [facility] Work Phone: 11-16-2021 10:48-0400 Body mass index (BMI) [Ratio] 25 kg/m2 Dr. Pat Bennett Work Phone: [facility] Work Phone: 11-16-2021 10:48-0400 Body weight 56.[address] Pat Bennett Work Phone: [facility] Work Phone: 11-16-2021 10:48-0400 SaO2% (BldA) [Mass fraction] 100 % Dr. Pat Bennett Work Phone: [facility] Work Phone: 11-16-2021 09:46-0400 Body mass index (BMI) [Ratio] 24.6 kg/m2 Dr. Pat Bennett Work Phone: [facility] Work Phone: 11-16-2021 09:46-0400 Body temperature 97.3 [degF] Dr. Pat Bennett Work Phone: [facility] Work Phone: 11-16-2021 09:46-0400 Body weight 55.[address] Pat Bennett Work Phone: [facility] Work Phone: 11-16-2021 09:46-0400 Diastolic blood pressure 50 mm[Hg] Dr. Pat Bennett Work Phone: [facility] Work Phone: 11-16-2021 09:46-0400 Heart rate 68 /min Dr. Pat Bennett Work Phone: [facility] Work Phone: 11-16-2021 09:46-0400 Respiratory rate 16 /min Dr. Pat Bennett Work Phone: [facility] Work Phone: 11-16-2021 09:46-0400 SaO2% (BldA) [Mass fraction] 99 % Dr. Pat Bennett Work Phone: [facility] Work Phone: 11-16-2021 09:46-0400 Systolic blood pressure 90 mm[Hg] Dr. Pat Bennett Work Phone: [facility] Work Phone: 11-10-2021 09:47-0400 Body temperature 97.6 [degF] Dr. Pat Bennett Work Phone: [facility] Work Phone: 11-10-2021 09:47-0400 Diastolic blood pressure 48 mm[Hg] Dr. Pat Bennett Work Phone: [facility] Work Phone: 11-10-2021 09:47-0400 Heart rate 55 /min Dr. Pat Bennett Work Phone: [facility] Work Phone: 06-22-2022 09:47-0400 Respiratory rate 18 /min Dr. Pat Bennett Work Phone: [facility] Work Phone: 11-10-2021 09:47-0400 SaO2% (BldA) [Mass fraction] 97 % Dr. Pat Bennett Work Phone: [facility] Work Phone: 11-10-2021 09:47-0400 Systolic blood pressure 133 mm[Hg] Dr. Pat Bennett Work Phone: [facility] Work Phone: 11-08-2021 10:31-0400 Body height 149.[address] Pat Bennett Work Phone: [facility] Work Phone: 11-08-2021 10:31-0400 Body weight 55.[address] Pat Bennett Work Phone: [facility] Work Phone: 11-07-2021 21:32-0400 Body mass index (BMI) [Ratio] 24.9 kg/m2 Dr. Pat Bennett Work Phone: [facility] Work Phone: 11-07-2021 21:00-0400 Diastolic blood pressure 58 mm[Hg] Dr. Pat Bennett Work Phone: [facility] Work Phone: 11-07-2021 21:00-0400 Heart rate 67 /min Dr. Pat Bennett Work Phone: [facility] Work Phone: 11-07-2021 21:00-0400 Respiratory rate 15 /min Dr. Pat Bennett Work Phone: [facility] Work Phone: 11-07-2021 21:00-0400 SaO2% (BldA) [Mass fraction] 99 % Dr. Pat Bennett Work Phone: [facility] Work Phone: 11-07-2021 21:00-0400 Systolic blood pressure 125 mm[Hg] Dr. Pat Bennett Work Phone: [facility] Work Phone: 11-07-2021 20:04-0400 Body temperature 98.1 [degF] Dr. Pat Bennett Work Phone: [facility] Work Phone: 11-07-2021 16:36-0400 Body height 149.[address] Pat Bennett Work Phone: [facility] Work Phone: 11-07-2021 16:36-0400 Body mass index (BMI) [Ratio] 25.2 kg/m2 Dr. Pat Bennett Work Phone: [facility] Work Phone: 11-07-2021 16:36-0400 Body weight 56.[address] Pat Bennett Work Phone: [facility] Work Phone: 10-12-2021 10:34-0400 Body mass index (BMI) [Ratio] 25.6 kg/m2 Dr. Pat Bennett Work Phone: [facility] Work Phone: 10-12-2021 10:34-0400 Body weight 57.[address] Pat Bennett Work Phone: [facility] Work Phone: 10-12-2021 10:34-0400 Diastolic blood pressure 57 mm[Hg] Dr. Pat Bennett Work Phone: [facility] Work Phone: 10-12-2021 10:34-0400 Heart rate 74 /min Dr. Pat Bennett Work Phone: [facility] Work Phone: 10-12-2021 10:34-0400 Respiratory rate 22 /min Dr. Pat Bennett Work Phone: [facility] Work Phone: 10-12-2021 10:34-0400 SaO2% (BldA) [Mass fraction] 97 % Dr. Pat Bennett Work Phone: [facility] Work Phone: 10-12-2021 10:34-0400 Systolic blood pressure 110 mm[Hg] Dr. Pat Bennett Work Phone: [facility] Work Phone: 10-12-2021 10:34-0400 Body height 149.[address] Pat Bennett Work Phone: [facility] Work Phone: 09-10-2021 13:14-0400 Diastolic blood pressure 71 mm[Hg] Pepito Joy RN [facility] 09-10-2021 13:14-0400 Heart rate 53 /min Pepito Joy RN [facility] 09-10-2021 13:14-0400 SaO2% (BldA) [Mass fraction] 94 % Pepito Joy RN [facility] 09-10-2021 13:14-0400 Systolic blood pressure 116 mm[Hg] Pepito Joy RN [facility] 08-23-2021 12:33-0400 Body height 149.9 cm Anton Zuñiga MD Work Phone: [facility] 08-23-2021 12:33-0400 Body mass index (BMI) [Ratio] 25.25 kg/m2 Anton Zuñiga MD Work Phone: [facility] 08-23-2021 12:33-0400 Body weight 56.7 kg Anton Zuñiga MD Work Phone: [facility] 08-23-2021 12:33-0400 Diastolic blood pressure 63 mm[Hg] Anton Zuñiga MD Work Phone: [facility] 08-23-2021 12:33-0400 Heart rate 58 /min Anton Zuñiga MD Work Phone: [facility] 08-23-2021 12:33-0400 Systolic blood pressure 108 mm[Hg] Anton Zuñiga MD Work Phone: [facility] 07-26-2021 13:38-0500 Body mass index (BMI) [Ratio] 24.8 kg/m2 Dr. Pat Bennett Work Phone: [facility] Work Phone: 07-26-2021 13:38-0500 Body temperature 96.7 [degF] Dr. Pat Bennett Work Phone: [facility] Work Phone: 07-26-2021 13:38-0500 Body weight 55.[address] Pat Bennett Work Phone: [facility] Work Phone: 07-26-2021 13:38-0500 Diastolic blood pressure 70 mm[Hg] Dr. Pat Bennett Work Phone: [facility] Work Phone: 07-26-2021 13:38-0500 Heart rate 62 /min Dr. Pat Bennett Work Phone: [facility] Work Phone: 07-26-2021 13:38-0500 Respiratory rate 16 /min Dr. Pat Bennett Work Phone: [facility] Work Phone: 07-26-2021 13:38-0500 SaO2% (BldA) [Mass fraction] 98 % Dr. Pat Bennett Work Phone: [facility] Work Phone: 07-26-2021 13:38-0500 Systolic blood pressure 120 mm[Hg] Dr. Pat Bennett Work Phone: [facility] Work Phone: 07-26-2021 12:38-0500 Body mass index (BMI) [Ratio] 24.8 kg/m2 Dr. Pat Bennett Work Phone: [facility] Work Phone: 07-26-2021 12:38-0500 Body temperature 96.7 [degF] Dr. Pat Bennett Work Phone: [facility] Work Phone: 07-26-2021 12:38-0500 Body weight 55.[address] Pat Bennett Work Phone: [facility] Work Phone: 07-26-2021 12:38-0500 Diastolic blood pressure 70 mm[Hg] Dr. Pat Bennett Work Phone: [facility] Work Phone: 07-26-2021 12:38-0500 Heart rate 62 /min Dr. Pat Bennett Work Phone: [facility] Work Phone: 07-26-2021 12:38-0500 Respiratory rate 16 /min Dr. Pat Bennett Work Phone: [facility] Work Phone: 07-26-2021 12:38-0500 SaO2% (BldA) [Mass fraction] 98 % Dr. Pat Bennett Work Phone: [facility] Work Phone: 07-26-2021 12:38-0500 Systolic blood pressure 120 mm[Hg] Dr. Pat Bennett Work Phone: [facility] Work Phone: 07-03-2021 17:35-0500 Body temperature 97.4 [degF] Dr. Pat Bennett Work Phone: [facility] Work Phone: 07-03-2021 17:35-0500 Diastolic blood pressure 78 mm[Hg] Dr. Pat Bennett Work Phone: [facility] Work Phone: 07-03-2021 17:35-0500 Heart rate 62 /min Dr. Pat Bennett Work Phone: [facility] Work Phone: 07-03-2021 17:35-0500 Respiratory rate 14 /min Dr. Pat Bennett Work Phone: [facility] Work Phone: 07-03-2021 17:35-0500 SaO2% (BldA) [Mass fraction] 98 % Dr. Pat Bennett Work Phone: [facility] Work Phone: 07-03-2021 17:35-0500 Systolic blood pressure 122 mm[Hg] Dr. Pat Bennett Work Phone: [facility] Work Phone: 07-03-2021 14:09-0500 Body mass index (BMI) [Ratio] 27.6 kg/m2 Dr. Pat Bennett Work Phone: [facility] Work Phone: 07-03-2021 14:09-0500 Body weight [address] Pat Bennett Work Phone: [facility] Work Phone: 03-17-2021 19:00-0400 Diastolic blood pressure 70 mm[Hg] [employer] [facility] 03-17-2021 19:00-0400 Heart rate 60 /min [employer] [facility] 03-17-2021 19:00-0400 Respiratory rate 17 /min [employer] [facility] 03-17-2021 19:00-0400 SaO2% (BldA) [Mass fraction] 96 % [employer] [facility] 03-17-2021 19:00-0400 Systolic blood pressure 144 mm[Hg] [employer] [facility] 03-17-2021 16:57-0400 Body height 149.8 cm Text [employer] [facility] 03-17-2021 16:57-0400 Body temperature 98.06 [degF] [employer] [facility] 03-17-2021 16:57-0400 Body weight 59.1 kg [employer] [facility] 02-11-2020 15:02-0400 BMI (Body Mass Index) 26.85 kg/m2 [facility] 02-11-2020 15:02-0400 Body Temperature 98.6 [degF] Marzena [facility] [employer] [facility] 02-11-2020 15:02-0400 Body weight 60.3 kg Marzena [facility] 02-11-2020 15:02-0400 Height 149.9 cm [facility] 01-30-2020 10:19-0400 BP Diastolic 74 mm[Hg] [facility] 01-30-2020 10:19-0400 BP Systolic 167 mm[Hg] [facility] 01-30-2020 10:19-0400 Pulse (Heart Rate) 61 /min [facility] [employer] [facility] 01-30-2020 10:19-0400 Pulse Oximetry 96 % [facility] 01-30-2020 10:19-0400 Respiratory Rate 16 /min [facility] [employer] [facility] 01-30-2020 09:49-0400 Body Temperature 98.2 [degF] [facility] [employer] [facility] 01-30-2020 08:55-0400 BMI (Body Mass Index) 26.86 kg/m2 [facility] [employer] [facility] 01-30-2020 08:55-0400 Body weight 60.33 kg [facility] [employer] [facility] 01-30-2020 08:55-0400 Height 149.9 cm [facility] [employer] 01-21-2020 13:06-0400 BMI (Body Mass Index) 26.86 kg/m2 Marzen[facility] 01-21-2020 13:06-0400 Body Temperature 98.01 [degF] [facility] 01-21-2020 13:06-0400 Body weight 60.33 kg [facility] 01-21-2020 13:06-0400 Height 149.9 cm Marzena [facility] 01-01-2020 13:06-0400 BMI (Body Mass Index) 26.86 kg/m2 Servando Clay [facility] Work Phone: 01-01-2020 13:06-0400 Body Temperature 98.2 [degF] Servando Clya [facility] Work Phone: 01-01-2020 13:06-0400 Body weight 60.33 kg Servando Clay [facility] Work Phone: 01-01-2020 13:06-0400 BP Diastolic 86 mm[Hg] Servando Clay [facility] Work Phone: 01-01-2020 13:06-0400 BP Systolic 130 mm[Hg] Servando Clay [facility] Work Phone: 01-01-2020 13:06-0400 BSA (Body Surface Area) 1.55 m2 Servando Clay [facility] Work Phone: 01-01-2020 13:06-0400 Height 149.86 cm Servando Clay [facility] Work Phone: 12-24-2019 13:19-0400 BMI (Body Mass Index) 27.02 kg/m2 [facility] 12-24-2019 13:19-0400 Body Temperature 98.01 [degF] [facility] 12-24-2019 13:19-0400 Body weight 60.69 kg [facility] 12-24-2019 13:19-0400 Height 149.9 cm [facility] 10-16-2019 11:30-0400 Body Temperature 97.59 [degF] [facility] 10-16-2019 11:30-0400 BP Diastolic 69 mm[Hg] [facility] 10-16-2019 11:30-0400 BP Systolic 157 mm[Hg] [facility] 10-16-2019 11:30-0400 Pulse (Heart Rate) 58 /min [facility] 10-16-2019 11:30-0400 Pulse Oximetry 96 % [facility] 10-16-2019 11:30-0400 Respiratory Rate 16 /min [facility] 10-15-2019 23:16-0400 BMI (Body Mass Index) 28.05 kg/m2 [facility] 10-15-2019 23:16-0400 Body weight 63.01 kg [facility] 10-15-2019 23:16-0400 Height 149.9 cm [facility] 05-30-2019 13:31-0500 BMI (Body Mass Index) 26.86 kg/m2 [facility] 05-30-2019 13:31-0500 Body Temperature 98.29 [degF] [facility] 05-30-2019 13:31-0500 Body weight 60.[address] [facility] 05-30-2019 13:31-0500 Height 149.9 cm [facility] 04-15-2019 13:42-0500 BMI (Body Mass Index) 25.78 kg/m2 [facility] 04-15-2019 13:42-0500 Body Temperature 98.29 [degF] [facility] 04-15-2019 13:42-0500 Body weight 59.88 kg [facility] 04-15-2019 13:42-0500 Height 152.4 cm [facility] 04-03-2019 13:04-0500 BMI (Body Mass Index) 26.05 kg/m2 [facility] 04-03-2019 13:04-0500 Body Temperature 98.49 [degF] [facility] 04-03-2019 13:04-0500 Body weight 60.5 kg [facility] 04-03-2019 13:04-0500 Height 152.4 cm [facility] 03-15-2019 12:42-0400 BMI (Body Mass Index) 26.17 kg/m2 [facility] 03-15-2019 12:42-0400 Body Temperature 98.2 [degF] [facility] 03-15-2019 12:42-0400 Body weight 60.78 kg [facility] 03-15-2019 12:42-0400 Height 152.4 cm [facility] 03-04-2019 13:24-0400 BMI (Body Mass Index) 26.17 kg/m2 [facility] 03-04-2019 13:24-0400 Body Temperature 97.59 [degF] [facility] 03-04-2019 13:24-0400 Body weight 60.78 kg [facility] 03-04-2019 13:24-0400 BP Diastolic 70 mm[Hg] [facility] 03-04-2019 13:24-0400 BP Systolic 128 mm[Hg] [facility] 03-04-2019 13:24-0400 Pulse (Heart Rate) 84 /min [facility] 03-04-2019 13:24-0400 Pulse Oximetry 93 % [facility] 05-03-2018 19:44-0500 Body Temperature 98.49 [degF] [facility] Work Phone: 05-03-2018 19:44-0500 BP Diastolic 93 mm[Hg] [facility] Work Phone: 05-03-2018 19:44-0500 BP Systolic 228 mm[Hg] [facility] Work Phone: 05-03-2018 19:44-0500 Pulse (Heart Rate) 60 /min [facility] Work Phone: 05-03-2018 19:44-0500 Pulse Oximetry 98 % [facility] Work Phone: 05-03-2018 19:44-0500 Respiratory Rate 22 /min [facility] Work Phone: 05-03-2018 17:21-0500 Height 152.4 cm [facility] Work Phone: Encounters Encounter Date Encounter Type Care Provider Facility Start: 02-05-2025 Evaluation and manag ement of inpatient Dr. Denise Uribe MD Work Phone: -Progressive Care Unit Start: 02-05-2025 Dr. Carol Petty MD -[facility] Work Phone: Start: 01-06-2025 End: 01-06-2025 Seth Ulrich SAIL MAKER-C -[facility] Work Phone: Start: 01-06-2025 End: 01-06-[address] Denise Uribe MD Work Phone: -[facility] Start: 01-06-2025 End: 01-06-2025 ambulatory Denise Uribe Facility:[facility] Start: 11-15-2024 End: 11-15-2024 Dr. Denise Uribe MD Work Phone: -Emergency Department Work Phone: Start: 11-15-2024 End: 11-15-2024 Emergency department patient visit Dr. Denise Uribe MD Work Phone: -Emergency Department Start: 09-19-2024 Dr. Bassem Schwartz MD -[facility] Inpatient Physicians Work Phone: Start: 09-18-2024 Dr. Franck Butler MD -[facility] Start: 09-17-2024 ambulatory Denise Uribe Facility :[facility] Start: 09-17-2024 End: 09-19-2024 Evaluation and management of inpatient Dr. Denise Uribe MD Work Phone: [facility] Work Phone: Start: 09-17-2024 End: 09-19-2024 Dr. Jailyn Wiggins MD -Progressive Care Unit Work Phone: Start: 08-07-2024 End: 08-07-2024 Dr. Denise Uribe MD -Medical Out Work Phone: Start: 08-07-2024 End: 08-07-[address] Denise Uribe MD Work Phone: [facility] Work Phone: Start: 07-24-2024 End: 07-24-[address] Denise Uribe MD Work Phone: [facility] Work Phone: Start: 07-24-2024 End: 07-24-2024 Dr. Denise Uribe MD -Laboratory, [place] Start: 07-24-2024 End: 07-24-2024 Dr. Denise Uribe MD -[facility] Work Phone: Start: 07-24-2024 End: 07-24-2024 ambulatory Denise Jojo Facility:[facility] Start: 07-24-2024 End: 07-24-2024 ambulatory Denise [place] Facility:[facility] Start: 06-18-2024 Dr. Devi perrin DO -[facility] Work Phone: Start: 06-17-2024 Dr. Deiv perrin DO -[facility] Work Phone: Start: 06-16-2024 ambulatory Denise [place] Facility :[facility] Start: 06-16-2024 End: 06-18-2024 Evaluation and management of inpatient Denise [place] Facility:[facility] Start: 06-16-2024 End: 06-18-2024 Dr. Devi Paredes DO -Medical Surgical 3 Work Phone: Start: 05-22-2024 Dr. Harry Iniguez MD -[facility] Work Phone: Start: 05-22-2024 Dr. Jb [facility]asmussen [facility] Start: 05-21-2024 Dr. Harry Iniguez MD -[facility] Work Phone: Start: 05-20-2024 Dr. Harry Iniguez MD -[facility] Work Phone: Start: 05-20-2024 Dr. Jb rasmussen [facility] Start: 05-19-2024 Dr. Jb rasmussen [facility] Start: 05-19-2024 Dr. Jailyn dave MD -[facility] Work Phone: Start: 05-18-2024 End: 05-18-2024 ambulatory [facility] Facility:[facility] Start: 05-18-2024 End: 05-18-2024 Dr. Hernando Colón MD -[facility] Work Phone: Start: 05-18-2024 Dr. Jb rasmussen MD [facility] Start: 05-18-2024 Dr. Jailyn dave MD -[facility] Work Phone: Start: 05-17-2024 ambulatory [facility] Facility :[facility] Start: 05-17-2024 [facility] Start: 05-17-2024 Dr. Jailyn dave MD -[facility] Work Phone: Start: 05-16-2024 [facility] Start: 05-16-2024 Dr. Jailyn dave MD -[facility] Work Phone: Start: 05-15-2024 Dr. Davie easley MD [facility] Start: 05-15-2024 Dr. Jailyn dave MD -[facility] Work Phone: Start: 05-14-2024 [facility] Start: 05-14-2024 End: 05-14-2024 ambulatory Bassem Diamond Facility:[facility] Start: 05-14-2024 End: 05-14-2024 Dr. Hernando Colón MD -[facility] Work Phone: Start: 05-14-2024 Dr. Jailyn dave MD -[facility] Work Phone: Start: 05-13-2024 ambulatory Bassem Diamond Facili ty:[facility] Start: 05-13-2024 End: 05-22-2024 Evaluation and management of inpatient Bassem Diamond Facility:[facility] Start: 05-13-2024 End: 05-22-2024 Dr. Harry Iniguez MD -Progressive Care Unit Work Phone: Start: 04-22-2024 ambulatory Denise [place] Facility :[facility] Start: 04-22-2024 Dr. Mel Beaver MD -[facility] Start: 04-22-2024 ambulatory Carrillo Handley Facility:[facility] Start: 04-22-2024 Dr. Carrillo Handley MD -[facility] Start: 04-22-2024 End: 04-22-2024 Humaira MUNOZ -Cardiovascular Services Work Phone: Start: 04-22-2024 End: 04-22-2024 ambulatory Denise Jojo Facility:[facility] Start: 03-26-2024 End: 03-26-2024 ambulatory Denise Jojo Facility:[facility] Start: 03-26-2024 ambulatory Denise [place] Facility :[facility] Start: 03-21-2024 End: 03-21-2024 ambulatory Denise Jojo Facility:[facility] Start: 03-20-2024 End: 03-20-2024 ambulatory Denise [place] Facility:[facility] Start: 03-20-2024 End: 03-20-2024 ambulatory Denise [place] Facility:[facility] Start: 03-18-2024 ambulatory Desiree Ferullo Facility: [facility] Start: 03-18-2024 End: 03-18-2024 ambulatory Desiree Ferullo Facility:[facility] Start: 02-23-2024 End: 02-23-2024 [facility] Start: 02-19-2024 End: 02-19-2024 ambulatory Desiree Ferullo Facility:[facility] Start: 01-29-2024 End: 01-29-2024 Emergency department patient visit Denise Uribe Facility:[facility] Start: 09-14-2023 End: 09-14-[address] Denise Uribe Work Phone: [facility] Work Phone: Start: 09-14-2023 End: 09-14-2023 Dr. Denise Uribe Work Phone: [facility] Internal Medicine Work Phone: Start: 09-11-2023 End: 09-11-2023 Emergency department patient visit Dr. Denise Uribe Work Phone: [facility] Work Phone: Start: 09-11-2023 End: 09-11-2023 Dr. Denise Uribe Work Phone: [facility]-Emergency Department Work Phone: Start: 08-17-2023 End: 08-17-[address] Denise Uribe Work Phone: [facility] Work Phone: Start: 08-17-2023 End: 08-17-[address] Denise Uribe Work Phone: [facility], [facility] Start: 08-17-2023 End: 08-17-2023 Dr[facility] Start: 08-17-2023 End: 08-17-[address] Denise Uribe Work Phone: [facility] Work Phone: Start: 08-17-2023 End: 08-17-2023 Dr. Denise Uribe Work Phone: [facility] Work Phone: Start: 08-08-2023 Non-patient / Non-visit Dr. Bean Work Phone: [facility] Start: 08-08-2023 End: 08-08-[address] Denise Uribe Work Phone: [facility] Work Phone: Start: 08-08-2023 End: 08-08-[address] [facility] Start: 08-08-2023 End: 08-08-2023 Dr. Denise Uribe Work Phone: [facility] Start: 07-21-2023 End: 07-21-[address] Denise Uribe Work Phone: [facility] Work Phone: Start: 07-21-2023 End: 07-21-2023 Dr. Denise Uribe Work Phone: [facility] Work Phone: Start: 07-11-2023 End: 07-11-2023 ambulatory SAIL MAKER-C Devi Delgado SAIL MAKER Work Phone: [facility] Work Phone: Start: 07-11-2023 End: 07-11-2023 Patient encounter procedure SAIL MAKER-C Devi Delgado SAIL MAKER Work Phone: [facility]-Radiology, [facility] Work Phone: Start: 07-11-2023 End: 07-11-2023 Dr. Denise Uribe Work Phone: [facility], [facility] Work Phone: Start: 07-11-2023 End: 07-11-2023 Patient encounter procedure SAIL MAKER-C eDvi Delgado SAIL MAKER Work Phone: [facility] Internal Medicine Work Phone: Start: 07-11-2023 End: 07-11-2023 Dr. Denise Uribe Work Phone: [facility] Work Phone: Start: 07-07-2023 End: 07-07-2023 Patient encounter procedure SAIL MAKER-C Devi Delgado SAIL MAKER Work Phone: [facility] Work Phone: Start: 07-07-2023 End: 07-07-2023 Dr. Denise Uribe Work Phone: [facility] Work Phone: Start: 07-07-2023 End: 07-07-2023 Patient encounter procedure SAIL MAKER-C Devi Delgado SAIL MAKER Work Phone: [facility] Endocrinology Work Phone: Start: 07-07-2023 End: 07-07-2023 Dr. Denise Uribe Work Phone: [facility] Endocrinology Work Phone: Start: 05-08-2023 End: 05-08-2023 Patient encounter procedure SAIL MAKER-C Devi Delgado SAIL MAKER Work Phone: [facility] Endocrin[facility] Work Phone: Start: 03-31-2023 End: 03-31-2023 Patient encounter procedure SAIL MAKER-C Devi Delgado SAIL MAKER Work Phone: [facility]ocrin[facility] Work Phone: Start: 03-31-2023 End: 03-31-2023 ambulatory SAIL MAKER-C Devi Delgado SAIL MAKER Work Phone: [facility] Work Phone: Start: 03-31-2023 End: 03-31-2023 Patient encounter procedure SAIL MAKER-C Devi Delgado SAIL MAKER Work Phone: [facility] Work Phone: Start: 03-21-2023 End: 03-21-2023 Patient encounter procedure SAIL MAKER-C Devi Delgado SAIL MAKER Work Phone: [facility] Work Phone: Start: 02-16-2023 End: 02-16-2023 Patient encounter procedure SAIL MAKER-C Devi Delgado SAIL MAKER Work Phone: [facility] Work Phone: Start: 01-24-2023 End: 01-24-2023 Patient encounter procedure SAIL MAKER-C Devi Delgado SAIL MAKER Work Phone: [facility] Work Phone: Start: 12-20-2022 End: 12-20-2022 ambulatory SAIL MAKER-C Devi Delgado SAIL MAKER Work Phone: [facility] Work Phone: Start: 12-20-2022 End: 12-20-2022 Patient encounter procedure SAIL MAKER-C Devi Delgado SAIL MAKER Work Phone: [facility] Work Phone: Start: 12-08-2022 End: 12-08-2022 Patient encounter procedure SAIL MAKER-C Devi Delgado SAIL MAKER Work Phone: [facility] Work Phone: Start: 11-28-2022 End: 11-28-[address] Pat Bennett Work Phone: [facility] Work Phone: Start: 11-28-2022 End: 11-28-2022 Patient encounter procedure SAIL MAKER-C Devi Delgado SAIL MAKER Work Phone: [facility]-Ultrasound, [facility] Work Phone: Start: 11-28-2022 End: 11-28-2022 Dr. Pat Bennett Work Phone: [facility], [facility] Work Phone: Start: 11-17-2022 End: 11-17-2022 Patient encounter procedure SAIL MAKER-C Devi Delgado SAIL MAKER Work Phone: [facility]iology, [facility] Work Phone: Start: 11-17-2022 End: 11-17-2022 Dr. Pat Bennett Work Phone: [facility], [facility] Work Phone: Start: 11-17-2022 End: 11-17-2022 Patient encounter procedure SAIL MAKER-C Devi Delgado SAIL MAKER Work Phone: [facility] Work Phone: Start: 11-17-2022 End: 11-17-2022 Dr. Pat Bennett Work Phone: [facility] Work Phone: Start: 09-27-2022 End: 09-27-2022 Patient encounter procedure SAIL MAKER-C Devi Delgado SAIL MAKER Work Phone: [facility] Endocrinology Work Phone: Start: 09-27-2022 End: 09-27-2022 Dr. Pat Bennett Work Phone: [facility] Endocrin[facility] Work Phone: Start: 09-15-2022 End: 09-15-2022 Emergency department patient visit Dr. Pat Bennett Work Phone: [facility] Work Phone: Start: 09-15-2022 End: 09-15-2022 Dr. Pat Bennett Work Phone: [facility]-Emergency Department Start: 08-17-2022 End: 08-17-[address] Pat Bennett Work Phone: [facility] Work Phone: Start: 08-17-2022 End: 08-17-[address] Pat Bennett Work Phone: [facility] Internal Medicine Start: 08-17-2022 End: 08-17-2022 Dr. Pat Bennett Work Phone: [facility] Internal Medicine Start: 08-15-2022 End: 08-15-2022 Emergency department patient visit Yudy Yuliana [facility] Emergency 14 Start: 08-08-2022 Non-patient / Non-visit Dr. Dominique Bennett Work Phone: [facility] Inpatient Physicians Start: 08-08-2022 Dr. Pat clementer Work Phone: [facility] Inpatient Physicians Start: 08-07-2022 Non-patient / Non-visit Dr. Dominique Bennett Work Phone: [facility] Inpatient Physicians Start: 08-07-2022 Dr. Pat Rowell hner Work Phone: [facility] Inpatient Physicians Start: 08-06-2022 Non-patient / Non-visit Dr. Dominique Bennett Work Phone: [facility] Start: 08-06-2022 Dr. Pat Rowell hner Work Phone: [facility] Start: 08-06-2022 Non-patient / Non-visit Dr. Dominique Bennett Work Phone: [facility] Inpatient Physicians Start: 08-06-2022 Dr. Pat Rowell hner Work Phone: [facility] Inpatient Physicians Start: 08-05-2022 Non-patient / Non-visit Dr. Dominique Bennett Work Phone: [facility] Start: 08-05-2022 [facility]: [facility] Start: 08-04-2022 End: 08-08-2022 Evaluation and management of inpatient Dr. Pat Bennett [facility] Start: 08-04-2022 End: 08-08-2022 Dr. Pat Bennett Work Phone: [facility] Surgical 3 Start: 07-20-2022 End: 07-20-2022 Emergency department patient visit Dr. Pat Bennett Work Phone: [facility]-Emergency Department Start: 07-20-2022 End: 07-20-2022 Dr. Pat Bennett Work Phone: [facility]-Emergency Department Start: 04-20-2022 End: 04-20-[address] Pat Bennett Work Phone: [facility] Work Phone: Start: 04-20-2022 End: 04-20-[address] Pat Bennett Work Phone: [facility]-Laboratory, Phy Office 3rd Flr Start: 04-11-2022 End: 04-11-[address] Pat Bennett Work Phone: [facility] Int Med at [place] Start: 04-06-2022 Rx Renewal Servando Clay DO Work Phone: [facility] Work Phone: Start: 04-04-2022 End: 04-04-[address] Pat Bennett Work Phone: [facility] Int Med at [place] Start: 03-28-2022 End: 03-28-2022 Emergency department patient visit Dr. Pat Bennett Work Phone: [facility]-Emergency Department Start: 03-16-2022 Chart Update Servando Clay DO Work Phone: [facility] Work Phone: Start: 03-16-2022 End: 03-16-2022 ambulatory Provider Pending Facility:[id number] Start: 02-17-2022 Office outpatient vi sit 15 minutes Provider AMAProvider Work Phone: [facility] Work Phone: Start: 02-17-2022 ambulatory SERVANDO CLAY Facility:[id number] Start: 02-07-2022 End: 02-07-[address] Pat Bennett Work Phone: [facility] Work Phone: Start: 02-07-2022 End: 02-07-[address] Pat Bennett Work Phone: [facility]-Laboratory Start: 02-07-2022 End: 02-07-[address] Pat Bennett Work Phone: [facility] Endocrinology Start: 02-01-2022 Non-patient / Non-visit Dr. Dominique Bennett Work Phone: [facility] Start: 02-01-2022 End: 02-01-[address] Pat Bennett Work Phone: [facility] Work Phone: Start: 02-01-2022 End: 02-01-[address] Pat Bennett Work Phone: [facility]-Cardiovascular Services Start: 01-14-2022 End: 01-14-[address] Pat Bennett Work Phone: [facility] Work Phone: Start: 01-14-2022 End: 01-14-[address] Pat Bennett Work Phone: [facility]-Laboratory Start: 01-14-2022 End: 01-14-[address] Pat Bennett Work Phone: [facility] Start: 01-06-2022 Office outpatient ne w 30 minutes Servando Clay DO Work Phone: [facility] [place] [id number] Work Phone: Start: 01-06-2022 ambulatory Provider Pending Facili ty:[id number] Start: 12-10-2021 End: 12-10-[address] Pat Bennett Work Phone: [facility] Internal Medicine Start: 11-16-2021 End: 11-16-2021 Emergency department patient visit Dr. Pat Bennett Work Phone: [facility]-Emergency Department Start: 11-16-2021 End: 11-16-[address] Pat Bennett Work Phone: [facility] Internal Medicine Start: 11-11-2021 Non-patient / Non-visit Dr. Dominique Bennett Work Phone: [facility] Start: 11-11-2021 End: 11-11-[address] Pat Bennett Work Phone: [facility]-Pulmonary Services/Neurology Start: 11-10-2021 Non-patient / Non-visit Dr. Dominique Bennett Work Phone: [facility] Inpatient Physicians Start: 11-10-2021 Non-patient / Non-visit Dr. Dominique Bennett Work Phone: [facility] Start: 11-09-2021 Non-patient / Non-visit Dr. Dominique Bennett Work Phone: [facility] Inpatient Physicians Start: 11-09-2021 Non-patient / Non-visit Dr. Dominique Bennett Work Phone: [facility] Start: 11-08-2021 Non-patient / Non-visit Dr. Dominique Bennett Work Phone: [facility] Inpatient Physicians Start: 11-08-2021 Non-patient / Non-visit Dr. Dominique Bennett Work Phone: [facility] Start: 11-07-2021 Non-patient / Non-visit Dr. Dominique Bennett Work Phone: [facility] Inpatient Physicians Start: 11-07-2021 End: 11-10-2021 Evaluation and management of inpatient Dr. Pat Bennett [facility] Start: 11-05-2021 Non-patient / Non-visit Dr. Dominique Bennett Work Phone: [facility] Start: 11-05-2021 End: 11-05-[address] Pat Bennett Work Phone: [facility]-Cardiovascular Services Start: 10-21-[address] Pat Bennett [facility] Start: 10-21-2021 Non-patient / Non-visit Dr. Dominique Bennett Work Phone: [facility] Start: 10-19-2021 End: 10-19-[address] Pat Bennett Work Phone: [facility]-Laboratory Start: 10-12-2021 End: 10-12-[address] Pat Bennett Work Phone: [facility] Start: 09-15-2021 End: 09-16-2021 ambulatory PHYSICIAN [facility] Start: 09-14-2021 End: 09-18-2021 ambulatory ANTON ZUÑIGA [facility] Start: 09-10-2021 End: 09-10-2021 Clinical Support Anton Zuñiga MD Work Phone: [facility] Vascular Physicians Comment on above: Coronary artery dise ase involving [place] coronary artery, unspecified whether angina present, unspecified whether [place] or transplanted heart; Angina pectoris (HCC); Pre-operative cardiovascular examination Start: 09-10-2021 End: 09-10-2021 Patient encounter status Anton Zuñiga MD Work Phone: [facility] Phys[facility] Start: 09-06-2021 Orders Only Caitlyn Sam RN [facility] V[facility] Comment on above: Coronary artery dise ase involving [place] coronary artery, unspecified whether angina present, unspecified whether [place] or transplanted heart (Primary Dx); Angina pectoris (HCC) Start: 08-27-2021 Orders Only Caitlyn Sam RN [facility] Comment on above: Coronary artery dise ase involving [place] coronary artery, unspecified whether angina present, unspecified whether [place] or transplanted heart (Primary Dx); Angina pectoris (HCC); Pre-operative cardiovascular examination Start: 08-27-2021 Patient encounter status Kelly Sam RN [facility] Start: 08-26-2021 ambulatory ANTON AMAYA E[facility] Ambulatory Start: 08-23-2021 End: 08-23-2021 ambulatory ANTON SEEMA [facility] Ambulatory Start: 08-23-2021 End: 08-23-2021 Office outpatient visit 25 minutes Anton Zuñiga MD Work Phone: [facility] V[facility] Physicians Comment on above: Angina pectoris (HCC ) (Primary Dx); Coronary artery disease involving [place] coronary artery, unspecified whether angina present, unspecified whether [place] or transplanted heart Start: 07-26-2021 End: 07-26-[address] Pat Bennett Work Phone: [facility], [place] Start: 07-26-2021 End: 07-26-[address] Pat Bennett Work Phone: [facility] Internal Medicine Start: 07-03-2021 End: 07-03-2021 Emergency department patient visit Dr. Pat Bennett Work Phone: [facility]-Emergency Department Start: 06-15-2021 Rx Renewal Servando Clay Work Phone: [facility] Gastroenterology-[place] [id number] Work Phone: Start: 03-17-2021 End: 03-17-2021 Emergency department patient visit Yudy Orantes [facility] Emergency 07 Start: 03-03-2021 End: 03-03-2021 ambulatory [facility] Start: 02-24-2021 ambulatory [facility] Ambulatory Start: 01-14-[address] Vanessa Bennett Work Phone: [facility] Start: 01-14-[address] ation done Dr. Denise Uribe MD Work Phone: [facility] Start: 05-28-2020 Patient encounter procedure Servando Clay [facility] Work Phone: Start: 04-07-2020 Patient encounter procedure Servando Clay [facility] Work Phone: Start: 03-17-2020 Patient encounter procedure Servando Clay [facility] Work Phone: Start: 02-20-2020 Patient encounter procedure Servando Clay [facility] Work Phone: Start: 02-11-2020 End: 02-11-2020 Postop follow up visit related to original px Marzena Beltran Work Phone: [facility] Orthopedics & Sports Medicine Comment on above: S/P carpal tunnel re lease- Rt (Primary Dx) Start: 01-30-2020 End: 01-30-2020 Subsequent hospital visit by physician Bravo Cote Work Phone: [facility] Periop Comment on above: Carpal tunnel syndro me on right Start: 01-21-2020 End: 01-21-2020 Patient encounter procedure Marzena Beltran Work Phone: [facility] Orthopedics & Sports Medicine Comment on above: Carpal tunnel syndro me, right (Primary Dx); Pre-op testing Start: 01-01-2020 Patient encounter procedure Servando Clay [facility] Medical Services Work Phone: Start: 12-24-2019 End: 12-24-2019 Office outpatient visit 15 minutes Hugo Murray Work Phone: [facility] Orthopedics Comment on above: Chronic right should er pain (Primary Dx) Start: 11-28-2019 Patient encounter procedure Servando Clay [facility] Services Work Phone: Start: 10-21-2019 Patient encounter procedure Servando Clay [facility] Services Work Phone: Start: 10-15-2019 End: 10-16-2019 Emergency department patient visit Rashard Pedroefraínmendoza Work Phone: [facility] Med Surg Comment on above: Fatigue Start: 10-03-2019 Patient encounter procedure Servando Clay [facility] Services Work Phone: Start: 06-13-2019 End: 06-13-2019 Subsequent hospital visit by physician Sherwin Cali Work Phone: [facility] Echocardiography Comment on above: Arrived Start: 06-05-2019 End: 06-05-2019 Subsequent hospital visit by physician Sherwin Cali Work Phone: [facility] Echocardiography Comment on above: Arrived Start: 05-30-2019 End: 05-30-2019 Patient encounter procedure Marzena Beltran Work Phone[facility] Comment on above: Carpal tunnel syndro me of right wrist (Primary Dx) Start: 04-24-2019 Patient encounter procedure Servando Clay [facility] Medical Services Work Phone: Start: 04-15-2019 End: 04-15-2019 Subsequent hospital visit by physician Hugo Murray Work Phone: [facility] Start: 04-15-2019 End: 04-15-2019 Office outpatient visit 25 minutes Hugo Vanessa Jagrutinasrin Work Phone: [facility] Orthopedics Comment on above: Chronic right should er pain (Primary Dx); Left hip pain Start: 04-03-2019 End: 04-03-2019 Office outpatient new 45 minutes Bravo Smithson Work Phone: [facility] Orthopedics Comment on above: Carpal tunnel syndro me of right wrist (Primary Dx); Cubital tunnel syndrome on left Start: 03-15-2019 End: 03-15-2019 Subsequent hospital visit by physician Hugo Murray Work Phone: [facility] Start: 03-15-2019 End: 03-15-2019 Office consultation new/estab patient 60 min Hugo Murray Work Phone: [facility] Orthopedics Comment on above: Left hip pain (Prima ry Dx) Start: 03-11-2019 End: 03-11-2019 Patient encounter procedure Other Other [facility] [employer] Start: 03-04-2019 End: 03-04-2019 Patient encounter procedure Other Other [facility] [employer] Start: 03-04-2019 End: 03-04-2019 Office outpatient visit 25 minutes Bassem Ding Work Phone: [facility] Rheumatology Comment on above: Gouty arthropathy [...] 01-25-2019 End: 01-25-2019 Letter encounter Provider Racheal [facility] Start: 01-25-2019 End: 01-25-2019 Subsequent hospital visit by physician Vladimir Landon Work Phone: [facility] Ultrasound Comment on above: Arrived Start: 01-24-2019 End: 01-24-2019 Ancillary Orders Vladimir Landon Work Phone: [facility] Central Scheduling Comment on above: Acute renal failure, unspecified acute renal failure type Start: 05-03-2018 End: 05-03-2018 Emergency department patient visit Rashard Gallegos Work Phone: [facility] Emergency Department Start: 04-24-2018 End: 04-24-2018 Patient encounter procedure Other Other [facility] Start: 04-23-2018 End: 04-23-2018 Patient encounter procedure Veronica Carmen [facility] Rheumatology Comment on above: Labs Only Start: 04-19-2018 End: 04-19-2018 Patient encounter procedure Bravo Fernandez Work Phone: [facility] EEG/EMG [place] Start: 03-26-2018 End: 03-26-2018 Patient encounter procedure Vladimir Fishman Work Phone: [facility] Neurology Comment on above: Other Start: 12-17-2016 End: 12-19-[address] Facility:[facility] Patient encounter procedure Servandotrell Careycraig DO Work Phone: [facility] Work Phone: Procedures Date Procedure Procedure [...] 11-15-2024 Platelet mean volume determination Dr. Emelina rUibe MD Work Phone: Start: 09-19-2024 Blood count [...] Phone: Start: 07-11-2023 Plain X-ray of shoulder SAIL MAKER-C Devi Delgado SAIL MAKER Work Phone: Start: 03-31-2023 Ultrasonography of breast SAIL MAKER-C Devi Freitas r SAIL MAKER Work Phone: Start: 12-20-2022 CT of thorax with contrast SAIL MAKER-C Devi Eldridge er SAIL MAKER Work Phone: Start: 12-08-2022 Bilateral mammography SAIL MAKER-C Devi Delgado SAIL MAKER Work Phone: Start: 11-28-2022 Ultrasonography of thorax [...] 02-21-2028 Screening for malignant neoplasm of colon [facility] Start: 03-17-2025 Pneumococcal Vaccine: Age 65+ (2 of 2 - PPSV23) Pneumococcal Vaccine: Age 65+ (2 of 2 - PPSV23) [facility] Start: 03-17-2025 Pneumococcal Vaccine: Age 65+ (3 - PPSV23 or PCV20) Pneumococcal Vaccine: Age 65+ (3 - PPSV23 or PCV20) [facility] Start: 02-05-2025 Verification routine [facility] Start: 02-05-2025 Admission procedure [facility] Start: 02-05-2025 Hospital admission, emergency, from emergency room, medical nature [facility] Start: 02-05-2025 End: 02-05-2025 [facility] Start: 11-15-2024 [facility] Start: 11-15-2024 End: 11-15-2024 [facility] Start: 09-19-2024 Patient discharge [facility] Start: 09-18-2024 [facility] Start: 09-17-2024 Following clinical pathway protocol [facility] Start: 09-17-2024 Care regimes management [facility] Start: 09-17-2024 Notification of physician [facility] Start: 09-17-2024 Provision of activity privileges [facility] Start: 09-17-2024 Tobacco use cessation education [facility] Start: 09-17-2024 Assessment of risk of venous thromboembolism [facility] Start: 09-17-2024 Fall prevention [facility] Start: 09-17-2024 Insertion of catheter into peripheral vein [facility] Start: 09-17-2024 Introduction of urinary catheter [facility] Start: 09-17-2024 Measuring intake and output [facility] Start: 09-17-2024 Oxygen therapy [facility] Start: 09-17-2024 Providing care according to standard [facility] Start: 09-17-2024 Referral to service [facility] Start: 09-17-2024 Referral to general surgeon [facility] Start: 09-17-2024 End: 09-17-2024 [facility] Start: 09-17-2024 Hospital admission, emergency, from emergency room, medical nature [facility] Start: 09-17-2024 Admission procedure [facility] Start: 08-07-2024 Iv infusion therapy/prophylaxis /dx 1st to 1 hr [facility] Start: 06-18-2024 Patient discharge [facility] Start: 06-17-2024 [facility] Start: 06-16-2024 Enteric precautions [facility] Start: 06-16-2024 Assessment of risk of venous thromboembolism [facility] Start: 06-16-2024 Care regimes management [facility] Start: 06-16-2024 Fall prevention [facility] Start: 06-16-2024 Incentive spirometry [facility] Start: 06-16-2024 Inhalation therapy procedure [facility] Start: 06-16-2024 Insertion of catheter into peripheral vein [facility] Start: 06-16-2024 Introduction of urinary catheter [facility] Start: 06-16-2024 Measuring intake and output [facility] Start: 06-16-2024 Notification of physician [facility] Start: 06-16-2024 Oxygen therapy [facility] Start: 06-16-2024 Providing care according to standard [facility] Start: 06-16-2024 Provision of activity privileges [facility] Start: 06-16-2024 Referral to occupational therapist [facility] Start: 06-16-2024 Referral to service [facility] Start: 06-16-2024 End: 06-16-2024 [facility] Start: 06-16-2024 End: 06-16-2024 Following clinical pathway protocol [facility] Start: 06-16-2024 Admission procedure [facility] Start: 05-22-2024 Patient discharge [facility] Start: 05-20-2024 Application of intermittent pneumatic compression device [facility] Start: 05-18-2024 [facility] Start: 05-18-2024 Care planning and problem solving actions [facility] Start: 05-17-2024 Referral to occupational therapist [facility] Start: 05-17-2024 Referral to service [facility] Start: 05-17-2024 Care planning and problem solving actions [facility] Start: 05-15-2024 Insertion of nasogastric tube [facility] Start: 05-15-2024 [facility] Start: 05-15-2024 Inhalation therapy procedure [facility] Start: 05-14-2024 [facility] Start: 05-14-2024 Introduction of urinary catheter [facility] Start: 05-14-2024 Referral to general surgeon [facility] Start: 05-14-2024 [facility] Start: 05-13-2024 Following clinical pathway protocol [facility] Start: 05-13-2024 Aspiration precautions [facility] Start: 05-13-2024 Assessment of risk of venous thromboembolism [facility] Start: 05-13-2024 Care regimes management [facility] Start: 05-13-2024 Insertion of catheter into peripheral vein [facility] Start: 05-13-2024 Measuring intake and output [facility] Start: 05-13-2024 Notification of physician [facility] Start: 05-13-2024 Providing care according to standard [facility] Start: 05-13-2024 Provision of activity privileges [facility] Start: 05-13-2024 Referral to occupational therapist [facility] Start: 05-13-2024 Referral to service [facility] Start: 05-13-2024 End: 05-13-2024 [facility] Start: 05-13-2024 Admission procedure [facility] Start: 05-13-2024 Patient referral to dietitian [facility] Start: 09-14-2023 Patient referral [facility] Work Phone: Start: 09-11-2023 [facility] Start: 02-16-2023 Patient referral [facility] Work Phone: Start: 08-15-2022 End: 08-18-2022 Iohexol (Omnipaque 350-Radiology Contrast) . ; (OMNIPAQUE)DOSE = 87.15 mL IntraVenous Push OnceCa.5 mL/Kg/DOSE x 58.1 Kg = 87.15 mL/Dose (Daily Total is 87.15 mL) Start: 15-Aug-2022 End: 17-Aug-2022 Ordered: 15-Aug-2022 Yudy Bridges [facility] Start: 08-08-2022 Patient discharge [facility] Start: 08-07-2022 Care regimes management [facility] Start: 08-07-2022 Notification of physician [facility] Start: 08-07-2022 [facility] Start: 08-05-2022 End: 08-05-2022 [facility] Start: 08-05-2022 Procedures relating to eating and drinking [facility] Start: 08-04-2022 Application of intermittent pneumatic compression device [facility] Start: 08-04-2022 Assessment of risk of venous thromboembolism [facility] Start: 08-04-2022 Care regimes management [facility] Start: 08-04-2022 Inhalation therapy procedure [facility] Start: 08-04-2022 Insertion of catheter into peripheral vein [facility] Start: 08-04-2022 Notification of physician [facility] Start: 08-04-2022 Providing care according to standard [facility] Start: 08-04-2022 Provision of activity privileges [facility] Start: 08-04-2022 Referral to general surgeon [facility] Start: 08-04-2022 [facility] Start: 08-04-2022 Following clinical pathway protocol [facility] Start: 08-04-2022 Verification routine [facility] Start: 08-04-2022 Admission procedure [facility] Start: 04-11-2022 Patient referral [facility] Work Phone: Start: 03-28-2022 [facility] Work Phone: Start: 02-17-2022 FUV, Provider: Servando Clay, Status: Pen, Time: 3:45 PM FUV, Provider: Servando Clay, Status: Pen, Time: 3:45 PM [facility] Gastroenterology-[place] [address] Work Phone: Start: 02-08-2022 Patient referral [facility] Work Phone: Start: 11-11-2021 [facility] Work Phone: Start: 11-10-2021 Patient discharge [facility] Work Phone: Start: 11-09-2021 [facility] Work Phone: Start: 11-09-2021 Following clinical pathway protocol [facility] Work Phone: Start: 11-08-2021 End: 11-09-2021 [facility] Work Phone: Start: 11-08-2021 Care regimes management [facility] Work Phone: Start: 11-08-2021 Notification of physician [facility] Work Phone: Start: 11-07-2021 Assessment of risk of venous thromboembolism [facility] Work Phone: Start: 11-07-2021 Care regimes management [facility] Work Phone: Start: 11-07-2021 Insertion of catheter into peripheral vein [facility] Work Phone: Start: 11-07-2021 Providing care according to standard [facility] Work Phone: Start: 11-07-2021 Provision of activity privileges [facility] Work Phone: Start: 11-07-2021 Referral to general surgeon [facility] Work Phone: Start: 11-07-2021 [facility] Work Phone: Start: 11-07-2021 Verification routine [facility] Work Phone: Start: 11-07-2021 Admission procedure [facility] Work Phone: Start: 11-07-2021 [facility] Work Phone: Start: 09-15-2021 End: 09-15-2021 Admission to same day surgery center 09/15/2021 Surgery Cardiology Anton Zuñiga MD [address] [place] [address] [facility] Records Analysis Manager Comment on above: Left Heart Cath Start: 09-15-2021 Subsequent hospital visit by physician 09/15/2021 Hospital Encounter Anton Zuñiga MD [address] [facility] [address] [place] [address] [facility] Procedural Care Unit Start: 09-10-2021 End: 09-10-2021 Clinical Support 09/10/2021 Clinical Support Cardiology Anton Zuñiga MD [address] [facility] [address] [place] [address] [facility] Heart [facility] Vascular Physicians Start: 09-02-2021 End: 09-02-2021 Admission to same day surgery center 09/02/2021 Surgery Cardiology Anton Zuñiga MD [address] [facility] [address] [place] [address] Left Heart Cath Possbile PTCA/Stent [facility] Records Analysis Manager Comment on above: Left Heart Cath Possbile PTCA/Stent Start: 09-02-2021 Subsequent hospital visit by physician 09/02/2021 Hospital Encounter Anton Zuñiga MD [address] [facility] [address] [place] [address] [facility] Procedural Care Unit Start: 08-31-2021 End: 08-31-2021 Clinical Support 08/31/2021 Clinical Support Cardiology Anton Zuñiga MD [address] [facility] [address] [place] [address] [facility] Heart [facility] Vascular Physicians Start: 08-30-2021 End: 08-27-2022 Basic metabolic 2000 panel - Serum or Plasma Basic Metabolic Panel Lab Routine Coronary artery disease involving [place] coronary artery, unspecified whether angina present, unspecified whether [place] or transplanted heart Angina pectoris (HCC) Pre-operative cardiovascular examination Expected: 08/30/2021, Expires: 08/27/2022 [facility] Work Phone: Comment on above: Expected: 08/30/2021, Expires: Start: 07-29-2021 Patient referral [facility] Work Phone: Start: 07-26-2021 Patient referral [facility] Work Phone: Start: 2021 Fall risk assessment Falls Risk Assessment [facility] Start: 01-22-2021 Potassium [Moles/Vol] POTASSIUM [facility] Start: 10-15-2020 Potassium [Moles/Vol] POTASSIUM [facility] Start: 10-15-2020 TSH Qn TSH [facility] Start: 05-30-2020 Hemoglobin A1c measurement A1C [facility] Start: 04-29-2020 End: 04-29-2020 Office Visit 04/29/2020 Office Visit Cardiovascular Medicine Sherwin Cali II, MD [address] [place] [address] [phone] [facility] Cardiology Start: 02-11-2020 End: 02-11-2020 Office Visit 02/11/2020 Office Visit Orthopaedics Marzena Beltran PADarielC [address] [place] [address] [phone] [facility] Orthopedics & Sports Medicine Start: 02-05-2020 End: 02-05-2020 Office Visit 02/05/2020 Office Visit Cardiovascular Medicine Sherwin Cali II, MD [address] [place] [address] [facility] Cardiology Start: 01-30-2020 End: 01-30-2020 Hospital Encounter [facility] Periop Comment on above: Carpal tunnel syndrome on right DECOMPRESSION TRANSP OSITION MEDIAN NERVE RIGHT Start: 01-28-2020 End: 01-28-2020 Office Visit 01/28/2020 Office Visit Orthopaedics Hugo Murray, DO [address] [facility] [place] [address] [phone] [facility] Orthopedics Start: 01-23-2020 End: 01-23-2020 Pre-Operative Nurse Assessment [facility] Pre Admission Start: 01-21-2020 Influenza vaccination [facility] Start: 01-21-2020 End: 01-21-2020 Office Visit 01/21/2020 Office Visit Orthopaedics Marzena Beltran PA-C [address] [place] [address] [phone] [facility] Orthopedics & Sports Medicine Start: 01-15-2020 End: 01-14-2021 NOVEL CORONAVIRUS- NASOPHARYNGEAL NOVEL CORONAVIRUS- NASOPHARYNGEAL Microbiology STAT Pre-op testing Expected: 01/15/2020, Expires: 01/14/2021 [facility] Comment on above: Expected: 01/15/2020, Expires: Start: 07-04-2019 End: 07-04-2019 Office Visit 07/04/2019 Office Visit Cardiovascular Medicine Sherwin Cali II, MD [address] [facility] [address] [facility] Cardiology Start: 06-20-2019 End: 06-20-2019 Office Visit 06/20/2019 Office Visit Orthopaedics Hugo Murray, DO [address] [facility] [place] [address] [phone] [facility] Orthopedics Start: 06-20-2019 End: 06-20-2019 Office Visit 06/20/2019 Office Visit Orthopaedics Marzena Beltran PA-C [address] [place] [address] [phone] [facility] Orthopedics & Sports Medicine Start: 06-13-2019 End: 06-13-2019 Appointment 06/13/2019 Appointment Cardiovascular Medicine Sherwin Cali II, MD [address] [place] [address] [facility] Echocardiography Start: 06-06-2019 End: 06-06-2019 Procedure Pass [facility] Periop Comment on above: Carpal tunnel syndrome on right DECOMPRESSION TRANSP OSITION MEDIAN NERVE Start: 05-31-2019 End: 05-31-2019 Office Visit 05/31/2019 Office Visit Cardiovascular Medicine Sherwin Cali II, MD [address] [place] [phone] [facility] Health Cardiology Start: 04-15-2019 End: 04-15-2019 Office Visit 04/15/2019 Office Visit Orthopaedics Hugo Murray, [address] [place] [address] [phone] [facility] Orthopedics Start: 04-03-2019 End: 04-03-2019 Office Visit 04/03/2019 Office Visit Orthopaedics Bravo Cote MD [address] [place] [address] [phone] [facility] Orthopedics Start: 03-29-2019 End: 03-29-2019 Office Visit 03/29/2019 Office Visit Orthopaedics Hugo Murray, [address] [place] [address] [phone] [facility] Orthopedics Start: 03-15-2019 End: 03-13-2020 Skeletal X-ray of pelvis and hip [facility] Comment on above: 1 Occurrences starting 03/15/2019 until 03/15/2019 Expected: 03/15/2019 , Expires: 03/13/2020 Start: 03-15-2019 End: 03-15-2019 Office Visit 03/15/2019 Office Visit Orthopaedics Hugo Murray DO [address] [place] [address] [place] [address] [facility] Orthoped[facility] Start: 03-04-2019 End: 03-04-2019 Office Visit 03/04/2019 Office Visit Rheumatology Timur Naranjo, Bassem Mix, DO [address] [place] [phone] [facility] Rheumatology Start: 02-26-2019 Thyrotropin Qn TSH [facility] Work Phone: Start: 01-25-2019 End: 01-25-2019 Hospital Encounter [facility] Ultrasound Comment on above: Arrived Start: 01-20-2019 Influenza vaccination INFLUENZA VACCINE (#1) [facility] Start: 04-19-2018 End: 04-19-2018 Ambulatory [facility] EEG/EMG [place] Start: 01-20-2018 Influenza vaccination INFLUENZA VACCINE (#1) [facility] Work Phone: Start: 2006 Administration of herpes zoster vaccine Zoster Vaccines (1 of 2) [facility] Start: 2006 Colonoscopy [facility] Start: 2006 Protein mass conc COLON CANCER SCREENING DISCUSSION [facility] Work Phone: Start: 2006 Screening for malignant neoplasm of colon [facility] Start: 2006 Zoster vaccine hzv live for subcutaneous use ZOSTER (SHINGLES) VACCINE (1 of 2) [facility] Start: 1996 Fasting lipid profile LIPID SCREENING [facility] Work Phone: Start: 1996 Protein mass conc MAMMOGRAM SCREENING DISCUSSION [facility] Work Phone: Start: 1996 Screening for malignant neoplasm of breast Mammogram [facility] Start: 1996 Screening mammography MAMMOGRAM SCREENING DISCUSSION [facility] Start: 1977 Screening for malignant neoplasm of cervix [facility] Work Phone: Start: 1975 Third diphtheria, tetanus and acellular pertussis (DTaP) vaccination TDAP (ADULT) [facility] Work Phone: Start: 1974 Hepatitis C screening Hepatitis C Screening [facility] Start: 1974 Tetanus vaccination TETANUS [facility] Work Phone: Start: 1971 HIV screening HIV Screening [facility] Start: 1969 HIV screening HIV SCREENING DISCUSSION [facility] Work Phone: Start: 1968 Depression screening using PHQ-9 (Patient Health Questionnaire 9) score Depression Screening (PHQ-2/9) [facility] Start: 1966 Diabetic foot examination Foot Exam [facility] Start: 1966 Microalbumin measurement, urine, quantitative Urine Microalbumin [facility] Start: 1966 Ophthalmic examination and evaluation Ophthalmology Exam [facility] Start: 1959 History and physical examination, annual for health maintenance Wellness Visit [facility] Start: 1956 Hepatitis C antibody, confirmatory test HEPATITIS C VIRUS SCREENING [facility] Work Phone: Start: 1956 Screening for osteoporosis Dexa Scan [facility] Start: 1956 Tetanus vaccination Tetanus: Every 10yrs [facility] End: 08-27-2022 12 lead ECG ECG 12 Lead ECG Routine Coronary artery disease involving [place] coronary artery, unspecified whether angina present, unspecified whether [place] or transplanted heart Angina pectoris (HCC) Pre-operative cardiovascular examination 1 Occurrences starting 08/27/2021 until 08/27/2022 [facility] Comment on above: 1 Occurrences starting 08/27/2021 until 08/27/2022 Blood chemistry [facility] End: 08-27-2022 CBC panel - Blood by Automated count CBC Lab Routine Coronary artery disease involving [place] coronary artery, unspecified whether angina present, unspecified whether [place] or transplanted heart Angina pectoris (HCC) Pre-operative cardiovascular examination 1 Occurrences starting 08/27/2021 until 08/27/2022 [facility] Comment on above: 1 Occurrences starting 08/27/2021 until 08/27/2022 CELIAC DISEASE COMPREHENSIVE PANEL CELIAC DISEASE COMPREHENSIVE PANEL Lab Routine 10/15/2019 3:27 PM [facility] Complete blood count [facility] H/O: hysterectomy History of hysterectomy [facility] Hemoglobin A1c/Hemoglobin.total in Blood [facility] History of appendectomy History of appendectomy [facility] History of cholecystectomy History of cholecystectomy [facility] History of colonoscopy History of colonoscopy [facility] History of decompression of median nerve History of carpal tunnel release [facility] History of placement of stent for coronary artery disease History of coronary artery stent placement [facility] HOLTER MONITOR - 24 HOUR HOLTER MONITOR - 24 HOUR ECG Routine Abnormal electrocardiogram Atrial premature contractions Palpitations Ordered: 05/31/2019 the grafter Comment on above: Ordered: 05/31/2019 End: 08-27-2022 INR in Platelet poor plasma by Coagulation assay PT/INR Lab Routine Coronary artery disease involving [place] coronary artery, unspecified whether angina present, unspecified whether [place] or transplanted heart Angina pectoris (HCC) Pre-operative cardiovascular examination 1 Occurrences starting 08/27/2021 until 08/27/2022 [facility] Comment on above: 1 Occurrences starting 08/27/2021 until 08/27/2022 Lipid 1996 panel - Serum or Plasma [facility] Measurement of respiratory function [facility] Work Phone: Past history of procedure History of esophagogastroduodenoscopy (EGD) [facility] Patient Education [facility] Work Phone: Patient referral [facility] Work Phone: Radiography of shoulder XR SHOULDER RIGHT MIN 2 VIEWS Imaging Routine Chronic right shoulder pain 04/15/2019 1:48 PM EST the grafter Skeletal X-ray of pelvis and hip XR HIP WITH PELVIS LEFT Imaging Routine Left hip pain 03/15/2019 2:02 PM EDT the grafter Standard ECG ECG ECG STAT 2:35 PM ED the grafter T4 free measurement [facility] Therapeutic px 1/> areas each 15 min exercises WA THERAPEUTIC EXERCISES, EA 15 MIN WA Charge Routine Chronic right shoulder pain Ordered: 12/24/2019 the grafter Comment on above: Ordered: 12/24/2019 Thyroid stimulating hormone measurement [facility] Tobacco use cessation education [facility] Tobacco use cessation education [facility] Tobacco use cessation education [facility] Transthoracic echocardiography ECHOCARDIOGRAM Echocardiography Routine Pre-operative clearance Atherosclerosis of [place] coronary artery of [place] heart, angina presence unspecified Old myocardial infarction Mitral valve prolapse Abnormal electrocardiogram Precordial pain 06/05/2019 2:46 PM EST the grafter Urine microalbumin/creatin ine ratio measurement [facility] Work Phone: [facility] Vitamin D, 25-hydroxy measurement [facility] NEGATED: Highlighted row has been ruled out! Planned Goals not documented [facility] Work Phone: Immunizations Immunization Date Immunization Notes Care Provider [facility] 02-19-2024 Seasonal trivalent influenza vaccine, adjuvanted, preservative free Dr. Denise Uribe MD Work Phone: [facility] 06-30-2023 RSV Adult BiValent (Abrysvo) SAIL MAKER-C Devi Maddoxder SAIL MAKER Work Phone: [facility] 06-28-2023 Influenza High-Dose Quadrivalent SAIL MAKER-C Devi Delgado SAIL MAKER Work Phone: [facility] 06-28-2023 Pfizer Covid-19 (Comirnaty) SAIL MAKER-C Devi Maddoxder SAIL MAKER Work Phone: [facility] 01-24-2023 tetanus toxoid, redu dominick diphtheria toxoid, and acellular pertussis vaccine, adsorbed SAIL MAKER-C Devi Delgado SAIL MAKER Work Phone: [facility] 01-03-2023 zoster vaccine recombinant SAIL MAKER-C Devi Delgado SAIL MAKER Work Phone: [facility] 05-04-2022 Covid Pfizer Bivalen t Booster SAIL MAKER-C Devi Maddoxder SAIL MAKER Work Phone: [facility] 05-04-2022 zoster vaccine recombinant SAIL MAKER-C Devi Delgado SAIL MAKER Work Phone: [facility] 03-01-2022 influenza, injectabl e, quadrivalent, preservative free SAIL MAKER-C Devi Maddoxder SAIL MAKER Work Phone: [facility] 03-01-2022 influenza, seasonal, injectable Dr. Pat Bennett Work Phone: [facility] 05-07-2021 Covid (Pfizer) Dr. Pat post Work Phone: [facility] 05-07-2021 influenza, injectabl e, quadrivalent, preservative free SAIL MAKER-C Devi Delgado SAIL MAKER Work Phone: [facility] 05-07-2021 influenza, seasonal, injectable Dr. Pat Bennett Work Phone: [facility] 09-19-2020 Pfizer SARS-CoV-2 Vaccination Caitlyn Sam RN [facility] 08-28-2020 Pfizer SARS-CoV-2 Vaccination Caitlyn Sam RN [facility] 07-16-2020 pneumococcal conjuga te vaccine, [address] Pat Bennett Work Phone: [facility] 07-16-2020 pneumococcal vaccine , unspecified formulation Dr. Pat Bennett Work Phone: [facility] Work Phone: 03-17-2020 influenza, injectabl e, quadrivalent, preservative free [facility] Comment on above: Series: 03-17-2020 pneumococcal polysaccharide vaccine, 23 valent [facility] Comment on above: Series: 02-17-[address] Pat Bennett Work Phone: [facility] 02-17-2020 Dr. Denise harrison MD Work Phone: [facility] 04-03-2017 influenza, injectabl e, quadrivalent, preservative free SAIL MAKER-C Devi Delgado SAIL MAKER Work Phone: [facility] 04-03-2017 influenza virus vacc ine, unspecified formulation Vladimir Fishman [facility] Work Phone: 03-08-1991 TD(adult) unspecifie d formulation SAIL MAKER-C Devi Delgado SAIL MAKER Work Phone: [facility] Payers Date Payer Category Payer Self-pay [id number] 2021 Medicaid [id number] 2020 Medicare UHC MANAGED MEDI CARE [employer] DUAL COMPLETE ([facility] SNP) [id number] 2020-Present [phone] [address] [address] [place] [address] [id number] 2020 Medicare [id number] 2018 Medicaid MEDICAID MEDICAI D [id number] 2018-Present [id number] 2018 Medicaid MEDICAID MEDICAI D [id number] 2018-Present [id number] 2017 Medicare MEDICARE [facility] MEDICARE [facility] xxxxxxxxx 2017-Present xxxxxxxxx [id number] 2017 Medicare MEDICARE [facility] MEDICARE [facility] [id number] 2017-Present [id number] .[id number] 1955 Unknown [id number] 2.16.840.1.624518.3.579.2.9 03 1955 Unknown [id number] 2.16.840.1.863687.3.579.2.9 1955 Unknown [id number] 2.16.840.1.261989.3.579.2.9 1955 Unknown [id number] 2.16.840.1.120040.3.579.2.9 03 1956 Unknown [id number] 2.16.840.1.310518.3.579.2.9 03 1956 Unknown [id number] 2.16.840.1.858094.3.579.2.9 03 1956 Unknown [id number] 2.16.840.1.795297.3.579.2.9 03 1956 Unknown [id number] 2.16.840.1.976456.3.579.2.9 03 1956 Unknown [id number] 2.16.840.1.554845.3.579.2.3 56 1955 Unknown [id number] 2.16.840.1.221868.3.579.2.3 56 1955 Unknown [id number] 2.16.840.1.490264.3.579.2.1 069 1955 Unknown [id number] 2.16.840.1.740571.3.579.2.1 069 Medicare [id number] Unknown Unknown [id number] 2.16.840.1.617104.3.579.2.4 62 Unknown [id number] 2.16.840.1.591487.3.579.2.4 62 Unknown [id number] 2.16.840.1.683010.3.579.2.4 62 Unknown [id number] 2.16.840.1.746641.3.579.2.4 62 Unknown [id number] 2.16.840.1.729264.3.579.2.4 62 Unknown [id number] 2.16.840.1.994393.3.579.2.4 62 Unknown [id number] 2.16.840.1.109062.3.579.2.4 62 Unknown [id number] 2.16.840.1.497306.3.579.2.4 62 Unknown [id number] 2.16.840.1.181312.3.579.2.4 62 Unknown [id number] 2.16.840.1.263501.3.579.2.4 62 Unknown [id number] 2.16.840.1.746703.3.579.2.4 62 Unknown [id number] 2.16.840.1.003478.3.579.2.4 62 Unknown [id number] 2.16.840.1.086998.3.579.2.4 62 Unknown [id number] 2.16.840.1.108835.3.579.2.4 62 Unknown [id number] 2.16.840.1.297922.3.579.2.4 62 Unknown [id number] 2.16.840.1.312667.3.579.2.4 62 Unknown [id number] 2.16.840.1.989349.3.579.2.4 62 Unknown [id number] 2.16.840.1.474133.3.579.2.4 62 Unknown [id number] 2.16.840.1.423785.3.579.2.4 62 Unknown [id number] 2.16.840.1.150024.3.579.2.4 62 Unknown [id number] 2.16.840.1.692289.3.579.2.4 62 Unknown [id number] 2.16.840.1.635669.3.579.2.4 62 Unknown [id number] 2.16.840.1.912288.3.579.2.4 62 Unknown [id number] 2.16.840.1.200921.3.579.2.4 62 Unknown [id number] 2.16.840.1.106084.3.579.2.4 62 Unknown [id number] 2.16.840.1.568120.3.579.2.4 62 Unknown [id number] 2.16.840.1.444405.3.579.2.4 62 Unknown [id number] 2.16.840.1.159327.3.579.2.4 62 Unknown [id number] 2.16.840.1.237672.3.579.2.4 62 Unknown [id number] 2.16.840.1.924251.3.579.2.4 62 Unknown [id number] 2.16.840.1.618451.3.579.2.4 62 Unknown [id number] 2.16.840.1.342258.3.579.2.4 62 Unknown [id number] 2.16.840.1.602774.3.579.2.4 62 Unknown [id number] 2.16.840.1.703027.3.579.2.4 62 Unknown [id number] 2.16.840.1.692592.3.579.2.4 62 Unknown [id number] 2.16.840.1.772834.3.579.2.4 62 Unknown [id number] 2.16.840.1.398943.3.579.2.4 62 Unknown [id number] 2.16.840.1.698684.3.579.2.4 62 Unknown [id number] 2.16.840.1.628705.3.579.2.4 62 Unknown [id number] 2.16.840.1.967186.3.579.2.4 62 Unknown [id number] 2.16.840.1.496666.3.579.2.4 62 Unknown [id number] 2.16.840.1.192684.3.579.2.4 62 Unknown [id number] 2.16.840.1.735953.3.579.2.4 62 Unknown [id number] 2.16.840.1.293229.3.579.2.4 62 Unknown [id number] 2.16.840.1.611489.3.579.2.4 62 Unknown [id number] 2.16.840.1.578773.3.579.2.4 62 Unknown [id number] 2.16.840.1.050429.3.579.2.4 62 Unknown [id number] 2.16.840.1.936116.3.579.2.4 62 Unknown [id number] 2.16.840.1.040342.3.579.2.4 62 Unknown [id number] 2.16.840.1.512900.3.579.2.4 62 Unknown [id number] 2.16.840.1.432802.3.579.2.4 62 Unknown [id number] 2.16.840.1.585234.3.579.2.4 62 Unknown [id number] 2.16.840.1.315399.3.579.2.4 62 Social History Date Type Detail Facility Start: 02-26-2018 End: 02-05-2025 Tobacco smoking status NHIS Current every day smoker [facility] Work Phone: Start: 1955 Sex Assigned At Not on file O [facility] Work Phone: History of tobacco use Cigarette Smoker [facility] Start: 05-30-2019 End: 10-15-2019 Alcohol intake Ex-drinker (finding) [facility] Start: 12-24-2019 End: 08-23-2021 Tobacco use and exposure Never used [facility] Start: 08-12-2021 End: 09-10-2021 Exposure to SARS-CoV-2 (event) Not sure [facility] Start: 01-30-2020 End: 08-23-2021 Cigarettes smoked current (pack per day) - Reported [facility] Start: 10-12-2021 End: 09-11-2023 Tobacco smoking consumption unknown [facility] Start: 08-23-2021 Alcohol intake Lifetime non-d miguel (finding) [facility] Start: 05-23-2020 None [facility] Start: 05-23-2020 With Family [facility] Start: 07-31-2020 Cigarettes [facility] Start: 1955 Sex Assigned At Female W [facility] Start: 08-06-2024 End: 09-17-2024 Sex Female (finding) [facility] Sex [facility] NEGATED: Highlighted row - - [facility] Work Phone: NEGATED: Highlighted row [facility] Medical Equipment Procedure Code Equipment Code Equipment Origin al Text Equipment Identifier Dates Blood Sugar Diagnostic (Onetouch Verio Test Strips) strip Start: 11-12-2020 Lancets (Onetouc h Ultrasoft Lancets) misc Start: 11-12-2020 Pen Needle, Diab etic (Lite Touch Insulin Pen [place]) 31 gauge x 5/16 needle Start: 08-31-2020 [...] Needle, Diab etic (Lite Touch Insulin Pen [place]) 31 gauge x 5/16 needle Start: 11-05-2021 [...] Needle, Diab etic (Lite Touch Insulin Pen [place]) 31 gauge x 5/16 needle Start: 08-31-2020 End: 11-05-2021 Blood Sugar Diagnostic (Onetouch Verio Test Strips) strip Start: 11-12-2020 Lancets (Onetouc h Ultrasoft Lancets) misc Start: 11-12-2020 Pen Needle, Diab etic (Lite Touch Insulin Pen [place]) 31 gauge x 5/16 needle Start: 11-05-2021 [...] Needle, Diab etic (Lite Touch Insulin Pen [place]) 31 gauge x 5/16 needle Start: 08-31-2020 End: 11-05-2021 Blood Sugar Diagnostic (Onetouch Verio Test Strips) strip Start: 11-12-2020 Lancets (Onetouc h Ultrasoft Lancets) misc Start: 11-12-2020 Pen Needle, Diab etic (Lite Touch Insulin Pen [place]) 31 gauge x 5/16 needle Start: 11-10-2021 [...] Needle, Diab etic (Lite Touch Insulin Pen [place]) 31 gauge x 5/16 needle Start: 08-31-2020 End: 11-05-2021 Pen Needle, Diab etic (Lite Touch Insulin Pen [place]) 31 gauge x 5/16 needle Start: 11-05-2021 End: 11-10-2021 Blood Sugar Diagnostic (Onetouch Verio Test Strips) strip Start: 11-12-2020 Lancets (Onetouc h Ultrasoft Lancets) misc Start: 11-12-2020 Pen Needle, Diab etic (Lite Touch Insulin Pen [place]) 31 gauge x 5/16 needle Start: 11-10-2021 [...] Needle, Diab etic (Lite Touch Insulin Pen [place]) 31 gauge x 5/16 needle Start: 08-31-2020 End: 11-05-2021 Pen Needle, Diab etic (Lite Touch Insulin Pen [place]) 31 gauge x 5/16 needle Start: 11-05-2021 End: 11-10-2021 Blood Sugar Diagnostic (Onetouch Verio Test Strips) strip Start: 11-12-2020 Lancets (Onetouc h Ultrasoft Lancets) misc Start: 11-12-2020 Pen Needle, Diab etic (Lite Touch Insulin Pen [place]) 31 gauge x 5/16 needle Start: 11-10-2021 [...] Needle, Diab etic (Lite Touch Insulin Pen [place]) 31 gauge x 5/16 needle Start: 08-31-2020 End: 11-05-2021 Pen Needle, Diab etic (Lite Touch Insulin Pen [place]) 31 gauge x 5/16 needle Start: 11-05-2021 End: 11-10-2021 Blood Sugar Diagnostic (Onetouch Verio Test Strips) strip Start: 11-12-2020 Lancets (Onetouc h Ultrasoft Lancets) misc Start: 11-12-2020 Pen Needle, Diab etic (Lite Touch Insulin Pen [place]) 31 gauge x 5/16 needle Start: 11-10-2021 [...] Needle, Diab etic (Lite Touch Insulin Pen [place]) 31 gauge x 5/16 needle Start: 08-31-2020 End: 11-05-2021 Pen Needle, Diab etic (Lite Touch Insulin Pen [place]) 31 gauge x 5/16 needle Start: 11-05-2021 End: 11-10-2021 Blood Sugar Diagnostic (Onetouch Verio Test Strips) strip Start: 11-12-2020 Lancets (Onetouc h Ultrasoft Lancets) misc Start: 11-12-2020 Pen Needle, Diab etic (Lite Touch Insulin Pen [place]) 31 gauge x 5/16 needle Start: 11-10-2021 [...] Needle, Diab etic (Lite Touch Insulin Pen [place]) 31 gauge x 5/16 needle Start: 08-31-2020 End: 11-05-2021 Pen Needle, Diab etic (Lite Touch Insulin Pen [place]) 31 gauge x 5/16 needle Start: 11-05-2021 End: 11-10-2021 Blood Sugar Diagnostic (Onetouch Verio Test Strips) strip Start: 11-12-2020 Lancets (Onetouc h Ultrasoft Lancets) misc Start: 11-12-2020 Pen Needle, Diab etic (Bd Ultra-Fine Sophia Pen Needle) 32 gauge x 5/32 needle Start: 02-07-2022 Pen Needle, Diab etic (Lite Touch Insulin Pen [place]) 31 gauge x 5/16 needle Start: 11-10-2021 [...] Needle, Diab etic (Lite Touch Insulin Pen [place]) 31 gauge x 5/16 needle Start: 08-31-2020 End: 11-05-2021 Pen Needle, Diab etic (Lite Touch Insulin Pen [place]) 31 gauge x 5/16 needle Start: 11-05-2021 End: 11-10-2021 Blood Sugar Diagnostic (Onetouch Verio Test Strips) strip Start: 11-12-2020 Lancets (Onetouc h Ultrasoft Lancets) misc Start: 11-12-2020 Pen Needle, Diab etic (Bd Ultra-Fine Sophia Pen Needle) 32 gauge x 5/32 needle Start: 02-07-2022 Pen Needle, Diab etic (Lite Touch Insulin Pen [place]) 31 gauge x 5/16 needle Start: 11-10-2021 [...] Needle, Diab etic (Lite Touch Insulin Pen [place]) 31 gauge x 5/16 needle Start: 08-31-2020 End: 11-05-2021 Pen Needle, Diab etic (Lite Touch Insulin Pen [place]) 31 gauge x 5/16 needle Start: 11-05-2021 End: 11-10-2021 Blood Sugar Diagnostic (Onetouch Verio Test Strips) strip Start: 11-12-2020 Lancets (Onetouc h Ultrasoft Lancets) misc Start: 11-12-2020 Pen Needle, Diab etic (Bd Ultra-Fine Sophia Pen Needle) 32 gauge x 5/32 needle Start: 02-07-2022 Pen Needle, Diab etic (Lite Touch Insulin Pen [place]) 31 gauge x 5/16 needle Start: 11-10-2021 [...] Needle, Diab etic (Lite Touch Insulin Pen [place]) 31 gauge x 5/16 needle Start: 08-31-2020 End: 11-05-2021 Pen Needle, Diab etic (Lite Touch Insulin Pen [place]) 31 gauge x 5/16 needle Start: 11-05-2021 End: 11-10-2021 Blood Sugar Diagnostic (Onetouch Verio Test Strips) strip Start: 11-12-2020 Lancets (Onetouc h Ultrasoft Lancets) misc Start: 11-12-2020 Pen Needle, Diab etic (Bd Ultra-Fine Sophia Pen Needle) 32 gauge x 5/32 needle Start: 02-07-2022 Pen Needle, Diab etic (Lite Touch Insulin Pen [place]) 31 gauge x 5/16 needle Start: 11-10-2021 [...] Needle, Diab etic (Lite Touch Insulin Pen [place]) 31 gauge x 5/16 needle Start: 08-31-2020 End: 11-05-2021 Pen Needle, Diab etic (Lite Touch Insulin Pen [place]) 31 gauge x 5/16 needle Start: 11-05-2021 End: 11-10-2021 Blood Sugar Diagnostic (Onetouch Verio Test Strips) strip Start: 11-12-2020 Lancets (Onetouc h Ultrasoft Lancets) misc Start: 11-12-2020 Pen Needle, Diab etic (Bd Ultra-Fine Sophia Pen Needle) 32 gauge x 5/32 needle Start: 02-07-2022 Pen Needle, Diab etic (Lite Touch Insulin Pen [place]) 31 gauge x 5/16 needle Start: 11-10-2021 [...] Needle, Diab etic (Lite Touch Insulin Pen [place]) 31 gauge x 5/16 needle Start: 08-31-2020 End: 11-05-2021 Pen Needle, Diab etic (Lite Touch Insulin Pen [place]) 31 gauge x 5/16 needle Start: 11-05-2021 End: 11-10-2021 Blood Sugar Diagnostic (Onetouch Verio Test Strips) strip Start: 11-12-2020 Lancets (Onetouc h Ultrasoft Lancets) misc Start: 11-12-2020 Pen Needle, Diab etic (Bd Ultra-Fine Sophia Pen Needle) 32 gauge x 5/32 needle Start: 02-07-2022 Pen Needle, Diab etic (Lite Touch Insulin Pen [place]) 31 gauge x 5/16 needle Start: 11-10-2021 [...] Needle, Diab etic (Lite Touch Insulin Pen [place]) 31 gauge x 5/16 needle Start: 08-31-2020 End: 11-05-2021 Pen Needle, Diab etic (Lite Touch Insulin Pen [place]) 31 gauge x 5/16 needle Start: 11-05-2021 [...] Needle, Diab etic (Lite Touch Insulin Pen [place]) 31 gauge x 5/16 needle Start: 08-31-2020 End: 11-05-2021 Pen Needle, Diab etic (Lite Touch Insulin Pen [place]) 31 gauge x 5/16 needle Start: 11-05-2021 End: 11-10-2021 Pen Needle, Diab etic (Lite Touch Insulin Pen [place]) 31 gauge x 5/16 needle Start: 11-10-2021 End: 08-26-2022 Pen Needle, Diab etic (Lite Touch Insulin Pen [place]) 31 gauge x 5/16 needle Start: 08-26-2022 End: 09-27-2022 Blood Sugar Diagnostic (Onetouch Verio Test Strips) strip Start: 11-12-2020 Lancets Start: 01-24-2023 Pen Needle, Diab etic (Bd Ultra-Fine Sophia Pen Needle) 32 gauge x 5/32 needle Start: 01-30-2023 Pen Needle, Diab etic (Comfort Ez Pen [place]) 32 gauge x 1/4 needle Start: 01-30-2023 [...] Needle, Diab etic (Lite Touch Insulin Pen [place]) 31 gauge x 5/16 needle Start: 08-31-2020 End: 11-05-2021 Pen Needle, Diab etic (Lite Touch Insulin Pen [place]) 31 gauge x 5/16 needle Start: 11-05-2021 End: 11-10-2021 Pen Needle, Diab etic (Lite Touch Insulin Pen [place]) 31 gauge x 5/16 needle Start: 11-10-2021 End: 08-26-2022 Pen Needle, Diab etic (Lite Touch Insulin Pen [place]) 31 gauge x 5/16 needle Start: 08-26-2022 End: 09-27-2022 Blood Sugar Diagnostic (Onetouch Verio Test Strips) strip Start: 11-12-2020 Lancets Start: 01-24-2023 Pen Needle, Diab etic (Bd Ultra-Fine Sophia Pen Needle) 32 gauge x 5/32 needle Start: 01-30-2023 Pen Needle, Diab etic (Comfort Ez Pen [place]) 32 gauge x 1/4 needle Start: 01-30-2023 [...] Needle, Diab etic (Lite Touch Insulin Pen [place]) 31 gauge x 5/16 needle Start: 08-31-2020 End: 11-05-2021 Pen Needle, Diab etic (Lite Touch Insulin Pen [place]) 31 gauge x 5/16 needle Start: 11-05-2021 End: 11-10-2021 Pen Needle, Diab etic (Lite Touch Insulin Pen [place]) 31 gauge x 5/16 needle Start: 11-10-2021 End: 08-26-2022 Pen Needle, Diab etic (Lite Touch Insulin Pen [place]) 31 gauge x 5/16 needle Start: 08-26-2022 End: 09-27-2022 Blood Sugar Diagnostic (Onetouch Verio Test Strips) strip Start: 11-12-2020 Lancets Start: 01-24-2023 Pen Needle, Diab etic (Bd Ultra-Fine Sophia Pen Needle) 32 gauge x 5/32 needle Start: 01-30-2023 Pen Needle, Diab etic (Comfort Ez Pen [place]) 32 gauge x 1/4 needle Start: 01-30-2023 [...] Needle, Diab etic (Lite Touch Insulin Pen [place]) 31 gauge x 5/16 needle Start: 08-31-2020 End: 11-05-2021 Pen Needle, Diab etic (Lite Touch Insulin Pen [place]) 31 gauge x 5/16 needle Start: 11-05-2021 End: 11-10-2021 Pen Needle, Diab etic (Lite Touch Insulin Pen [place]) 31 gauge x 5/16 needle Start: 11-10-2021 End: 08-26-2022 Pen Needle, Diab etic (Lite Touch Insulin Pen [place]) 31 gauge x 5/16 needle Start: 08-26-2022 End: 09-27-2022 Blood Sugar Diagnostic (Onetouch Verio Test Strips) strip Start: 11-12-2020 Lancets Start: 01-24-2023 Pen Needle, Diab etic (Bd Ultra-Fine Sophia Pen Needle) 32 gauge x 5/32 needle Start: 01-30-2023 Pen Needle, Diab etic (Comfort Ez Pen [place]) 32 gauge x 1/4 needle Start: 01-30-2023 [...] Needle, Diab etic (Lite Touch Insulin Pen [place]) 31 gauge x 5/16 needle Start: 08-31-2020 End: 11-05-2021 Pen Needle, Diab etic (Lite Touch Insulin Pen [place]) 31 gauge x 5/16 needle Start: 11-05-2021 End: 11-10-2021 Pen Needle, Diab etic (Lite Touch Insulin Pen [place]) 31 gauge x 5/16 needle Start: 11-10-2021 End: 08-26-2022 Pen Needle, Diab etic (Lite Touch Insulin Pen [place]) 31 gauge x 5/16 needle Start: 08-26-2022 End: 09-27-2022 Goals Date Patient Goal Desired Activity /State Functional Status Date Assessment Result Facility 09-19-2024 Functional status Ambulates;Up ad ag [facility] Work Phone: 06-18-2024 Functional status Ambulates;Bedrest [facility] Work Phone: 05-22-2024 Functional status Ambulates [facility] Work Phone: 08-08-2022 Functional status Ambulates;Up ad ag [facility] Work Phone: 11-10-2021 Functional status Ambulates [facility] Work Phone: NEGATED: Highlighted row Functional performance Functional status health issues are not documented Disease [facility] Good Start Genetics [facility] Work Phone: Mental Status Date Assessment Result Facility 02-05-2025 Cognitive function Drowsy [facility] Work Phone: 11-15-2024 Cognitive function Awake;Alert;A ppropriate ;Follows Commands [facility] Work Phone: 09-19-2024 Cognitive function Voice/Name [facility] Work Phone: 08-07-2024 Cognitive function Awake;Alert;A ppropriate ;Follows Commands [facility] Work Phone: 06-18-2024 Cognitive function Voice/Name [facility] Work Phone: 05-22-2024 Cognitive function Voice/Name [facility] Work Phone: 08-08-2022 Cognitive function Voice/Name [facility] Work Phone: 08-04-2022 Cognitive function Level Of Cons ciousness Awake;Alert;Appropriate [facility] Work Phone: 11-10-2021 Cognitive function Voice/Name [facility] Work Phone: 11-07-2021 Cognitive function Voice/Name [facility] Work Phone: NEGATED: Highlighted row Cognitive function [Interpretation] Cognitive status health issues are not documented Disease [facility] Work Phone: Clinical Notes 08-20-2021 to 02-05-2025 Note Date & Type Note Facility 02-05-2025 Radiology Diagnostic study note [facility] 02-05-2025 Radiology Diagnostic study note [facility] 02-05-2025 Radiology Diagnostic study note [facility] 02-05-2025 Discharge summary Note Date/Time February 05, 2025 4:46pm [facility] Medical Records Department [address] [place] [address] Emergency Department Summary 02/05/25 MR#: [id number] Acct: [id number] Name: ASIF DELA CRUZ Rep #:[id number] : [id number] From: Tru tadeo DO [...] intact Psych: Cooperative, appropriate mood and affect [facility] Medical History Recurrent falls Chronic anemia Acute kidney injury Bipolar disorder Umbilical hernia Hypothyroidism Hiatal hernia Gout Essential hypertension Atrial fibrillation Overweight (BMI 25.0-29.9) Polyneuropathy due to type 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) infectious disease #30 GMS flash glucose sensor [...] Reaction Status Date / Time duloxetine (From Cryptonatoralta) Allergy Itching Verified 02/05/25 13:00 Environmental Allergies: [...] % (Auto) 65.9 Lymph % (Auto) 19.0 Cook % (Auto) 10.7 H Eos % (Auto) [...] Color Urine Clarity Urine pH Ur Specific [place] Urine Protein Urine Glucose (UA) Urine Ketones [...] (Auto) Neut % (Auto) Lymph % (Auto) Cook % (Auto) Eos % (Auto) Baso % [...] Clarity Clear Urine pH 5.0 Ur Specific [place] 1.020 Urine Protein 100 H Urine Glucose [...] ischemia and volume loss. Reading Location: [facility] Cervical Spine CT 02/05/25 14:50 IMPRESSION: DEGENERATIVE CHANGES OF THE CERVICAL SPINE. NO EVIDENCE OF SIGNIFICANT OSSEOUS CENTRAL CANAL OR NEURAL FORAMINAL STENOSIS. Reading [facility] Chest X-Ray 02/05/25 14:55 IMPRESSION: Mild cardiac enlargement. Reading Location: [facility] Discharge Plan Triage Chief Complaint: Syncope ED [...] [Primary Care Provider, Internal Medicine] Print Language: Israeli What to do if you have Problems For any increased pain, shortness of breath, bleeding, nausea or vomiting, chestpain, or any unexpected problems, contact your Primary Care Provider. Call [facility] ([phone]) or report to the closest Emergency Room. Call 911 if necessary. 02/05/25 1646 <Electronically signed by Tru Mayer DO> Cosigner Signature (if applicable): CC: Dr. Denise Uribe MD ~ Signed [facility] Work Phone: 1(140) 916-272608-18-2025 Evaluation note* Diagnosis Onset Date Resolution Status [...] ugust 2024 11:14am Syncope acute January 5:03pm [facility] Work Phone: 1(626) 113-771106-27-2025 Radiology Diagnostic study [facility]-27-2025 Radiology Diagnostic study [facility]-27-2025 Discharge summary Author Lacey Eastman [facility] Note Date/Time November 15, 2024 10:0 6pm [facility] Medical Records Department [address] [place] [address] Emergency Department Summary 11/15/24 MR#: [id number] Acct: [id number] Name: ASIF DELA CRUZ Rep #:[id number] : [id number] From: Lacey MUNOZ PCP: [...] chills, history of stroke, nausea, and vomiting. 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) infectious disease #30 GMS flash glucose sensor [...] 69-year-old female evaluated with our physician assistant director of residence life. Patient complaining of generalized weakness. Exam is [...] % (Auto) 66.7 Lymph % (Auto) 19.5 Cook % (Auto) 8.9 Eos % (Auto) 2.3 [...] Clarity Clear Urine pH 5.0 Ur Specific [place] 1.010 Urine Protein 30 H Urine Glucose [...] IMPRESSION: No acute intracranial finding. Reading Location: [facility] Chest X-Ray 11/15/24 19:10 IMPRESSION: Cardiomegaly without overt failure. Reading Location: [id number] EKG Initial EKG: Comments: 63 bpm, normal sinus rhythm, no ST elevation, interpreted by attending ED physician <Dr. Sanju Hernandez MD - Last Filed: 11/15/24 22:01> [facility] MDM Narrative Medical decision making narrative: I have personally performed a face to face assessment of the patient and have reviewed the CAMELIA Note. I performed a substantive portion of the visit including all aspects of the following. My billings findings include: History is 69-year-old female evaluated with our physician assistant director of residence life. Patient complaining of generalized weakness. Exam is [...] % (Auto) 66.7 Lymph % (Auto) 19.5 Cook % (Auto) 8.9 Eos % (Auto) 2.3 [...] Clarity Clear Urine pH 5.0 Ur Specific [place] 1.010 Urine Protein 30 H Urine Glucose [...] IMPRESSION: No acute intracranial finding. Reading Location: [facility] Chest X-Ray 11/15/24 19:10 IMPRESSION: Cardiomegaly without overt failure. Reading Location: [facility] Chest x-ray, portable, single view, interpreted by [...] other concerns or worsening symptoms. Print Language: Israeli Disposition Disposition: Home, Self Care What to do if you have Problems For any increased pain, shortness of breath, bleeding, nausea or vomiting, chestpain, or any unexpected problems, contact your Primary Care Provider. Call [facility] ([phone]) or report to the closest Emergency Room. Call 911 if necessary. 11/15/242205 <Electronically signed by Lacey MUNOZ> Cosigner Signature (if applicable): 11/15/242200 <Electronically signed by Sanuj Hernandez MD> CC: Dr. Denise Uribe MD ~ Signed [facility] Work Phone: 1(705) 279-879005-01-2025 [facility]04-30-2025 Evaluation note* Diagnosis Onset Date Resolution Status Admit Date Lactic acidosis resolved August 10:19pm Partial small bowel obstruction resolved September 17, 2024 10:19pm Diarrhea inactive September 17 10:19pm [facility] Work Phone: [phone] Evaluation note* Diagnosis Onset Date Resolution Status [...] Vitamin D insufficiency chronic A ugust 2024 11:14[facility] Work Phone: 1(275) 943-986804-29-2025 Radiology Diagnostic study [facility]03-05-2025 Evaluation note* Diagnosis Onset Date Resolution Status [...] follow-up noneact ann July 24, 2024 11:19am Pneym-tb-nrqqgkg kidney injury nonea ctive July 24, 2024 11:19am Paralytic ileus noneactive July 11:19am Lactic acidosis resolved August 10:19pm Partial small bowel obstruction resolved September 17, 2024 10:19pm Diarrhea inactive September 17 10:19pm [facility] Work Phone: 1([phone]) 111-883201-28-2025 [facility]01-01-2025 [facility]12-23-2024 Evaluation note* Diagnosis Onset Date Resolution Status [...] follow-up noneact ann July 24, 2024 11:19am Yyvow-bg-inoupsk kidney injury nonea ctive July 24, 2024 11:19am Paralytic ileus noneactive July 11:19am [facility] Work Phone: 1([phone]) 371-430612-23-2024 Evaluation note* Diagnosis Onset Date Resolution Status [...] follow-up noneact ann July 24, 2024 11:19am Lopae-ir-leierbz kidney injury nonea ctive July 24, 2024 11:19am Paralytic ileus noneactive July 11:19am Lactic acidosis acute August 10:19pm [facility] Work Phone: 1([phone]) 683-567504-22-2024 Discharge summary Author Tobi Riojas [facility] September 11, 2023 1:06pm Note Date/Time September 11, 2023 10: 57am [facility] Medical Records Department [address] [place] [address] Emergency Department Summary 09/11/23 MR#: [id number] Acct: [id number] Name: ASIF DELA CRUZ Rep #:[id number] : 1955 68 From: Tobi Riojas MD [...] similar symptoms: No Recent Illness/Hospitalization: No PFSH [facility] Medical History Abnormal stress test Acute kidney injury superimposed on chronic kidney disease Acute pancreatitis Atherosclerotic heart disease of [place] coronary artery without angina pectoris Atrial fibrillation [...] 30-59 Umbilical hernia Home Medications blood-glucose meter ([employer] Verio Flex Start kit) #1 ea 11/11/20 [...] 32 gauge x 1/4 (Comfort EZ Pen [place]) #100 ea 01/30/23 [Rx Last Taken Unknown] pen needle, diabetic 32 gauge x 5/32 (BD Ultra-Fine Spohia Pen Needle) #400 ea 01/30/23 [Rx Last [...] motor deficits and no sensory deficits noted [place] Coma Scale: document GCS findings Spontaneous Obeys [...] Sl. Cloudy Urine pH 6.0 Ur Specific [place] 1.010 Urine Protein 15 H Urine Glucose [...] of left tibia, Atherosclerotic heart disease of [place] coronary artery without angina pectoris, CKD (chronic [...] (DME) pen needle, diabetic [Comfort EZ Pen [place]] 32 gauge x 1/4 needle See Rx [...] your Primary Care Provider. Call [facility] ([phone]) or report to the closest Emergency Room. Call 911 if necessary. 09/11/23 1306 <Electronically signed by Tobi Riojas MD> Cosigner Signature (if applicable): CC: Dr. Denise Uribe MD ~ Signed [facility] Work Phone: [phone]) 201-874504-27-[address] Brar [facility] September 15, 2022 7:29pm Note Date/Time September 15, 2022 4:1 0pm [facility] Medical Records Department [address] [place] [address] Emergency Department Summary 09/15/22 MR#: [id number] Acct: [id number] Name: ASIF DELA CRUZ Rep #:[id number] : 1955 67 From: Jozef Brar DO [...] allergic reaction and she feels improved currently. [facility] Medical History Acute kidney injury superimposed on chronic kidney disease Atherosclerotic heart disease of [place] coronary artery without angina pectoris Atrial fibrillation [...] 30-59 Umbilical hernia Home Medications blood-glucose meter (ProsonixTouch Verio Flex Start kit) #1 ea 11/11/20 [Rx Last Taken Unknown] blood sugar diagnostic (ProsonixTouch Verio test strips) #300 ea 11/12/20 [Rx Last Taken Unknown] lancets (ProsonixTouch UltraSoft Lancets) #300 ea 11/12/20 [Rx Last [...] Taken Unknown] nystatin 100,000 unit/gram topical powder ([facility]) 1 applic topical BID PRN skininfection #30 [...] gauge x 5/16 (Lite Touch Insulin Pen [place]) #400 ea 08/26/22 [Rx Last Taken Unknown] [...] 80.4 H Lymph % (Auto) 12.8 L Cook % (Auto) 5.7 Eos % (Auto) 0.3 [...] Clarity Clear Urine pH 5.0 Ur Specific [place] 1.020 Urine Protein 100 H Urine Glucose [...] (Auto) Neut % (Auto) Lymph % (Auto) Cook % (Auto) Eos % (Auto) Baso % [...] Color Urine Clarity Urine pH Ur Specific [place] Urine Protein Urine Glucose (UA) Urine Ketones [...] pen needle, diabetic [Lite Touch Insulin Pen [place]] 31 gauge x 5/16 needle See Rx [...] Devi Delgado NP Referrals: Devi Delgado NP, [facility] [Primary Care Provider] - Disposition Disposition: Home, Self Care What to do if you have Problems For any increased pain, shortness of breath, bleeding, nausea or vomiting, chestpain, or any unexpected problems, contact your Primary Care Provider. Call [facility] ([phone]) or report to the closest Emergency Room. Call 911 if necessary. 09/15/221928 <Electronically signed by Jozef Brar DO> Cosigner Signature (if applicable): CC: SAIL [facility]ER[facility] Devi Delgado ~ Signed [facility] Work Phone: 1([phone]) 620-601303-20-[address] Schwartz [facility] August 08, 2022 9:08am Note Date/Time August 08, 2022 9:0 8am [facility] Medical Records Department [address] [place] [address] Discharge Summary 08/08/22 0904 MR#: [id number] Acct: [id number] Name: ASIF DELA CRUZ Rep #:[id number] : 1955 67 From: Bassem Schwartz MD PCP: Dr. Pat Bennett MD Status:ADM IN Location: [place] [address] Providers Date of Admission: 08/04/22 Date of [...] Medications at Discharge Home Medications blood-glucose meter (Amiato Verio Flex Start kit) #1 ea 11/11/20 blood sugar diagnostic (ProsonixTouch Verio test strips) #300 ea 11/12/20 lancets ([employer]uch UltraSoft Lancets) #300 ea 11/12/20 nitroglycerin 0.4 [...] gauge x 5/16 (Lite Touch Insulin Pen [place]) #100 ea 11/10/21 albuterol sulfate 90 mcg/actuation [...] (Auto) 83.5 H, Lymph % (Auto) 7.7 L,Cook % (Auto) 7.2, Eos % (Auto) 0.3, [...] pen needle, diabetic [Lite Touch Insulin Pen [place]] 31 gauge x 5/16 needle See Rx [...] Self Care Charges/Coding Visit Charges Inpatient E&M: 68322 Disch Hosp >30min 08/08/22 0908 <Electronically signed by Bassem Schwartz MD> Cosigner Signature (if applicable): CC: Dr. Bassem Schwartz MD; Dr. Pat Bennett MD~ Signed [facility] Work Phone: 1([phone]) 306-933003-19-[address] Buckley [facility] August 07, 2022 2:54pm Note Date/Time August 07, 2022 8:0 9am [facility] Medical Records Department [address] [place] [address] Progress Note - Hospitalist 08/07/22 0802 MR#: [id number] Acct: [id number] Name: ASIF DELA CRUZ Rep #:[id number] : 1955 67 From: Carrillo Buckley DO PCP: Dr. Pat Bennett MD Status:ADM IN [facility] Reason for Visit Reason for Visit: Diagnoses [...] (Auto) 81.0 H, Lymph % (Auto) 10.7L, Cook % (Auto) 6.8, Eos % (Auto) 0.3, [...] off anticoagulation at this time. Admit to [facility] with telemetry. * CAD status post stents Stable N.p.o.. Hold home antiplatelets. * Hypertension Blood pressure is not within goal DVT Prophylaxis SCDs ordered Charges/Coding Visit Charges Inpatient E&M: 32021 Subs Hosp L3 08/07/22 1152 <Electronically signed [...] Cosigner Signature (if applicable): cc: ~* Signed [facility] Work Phone: 1(879) 386-607403-19-[address] Butler [facility] August 07, 2022 7:29am Note Date/Time August 07, 2022 7:2 9am [facility] Medical Records Department [address] [place] [address] Progress Note - Surgery 08/07/22 0728 MR#: [id number] Acct: [id number] Name: ASIF DELA CRUZ Rep #:[id number] : 1955 67 From: Franck reyes MD PCP: Dr. Pat Bennett MD Status:ADM IN Location: [facility] RW663-6 Subjective Subjective Patient reports she tolerated a [...] (Auto) 81.0 H, Lymph % (Auto) 10.7L, Cook % (Auto) 6.8, Eos % (Auto) 0.3, [...] no abdominal pain. Franck Butler MD Pager: [facility] [address] [place] [address], [address] [place] [address] Office: 08/07/22 0062 <Electronically signed by Franck Butler MD> Cosigner Signature (if applicable): CC: ~ Signed [facility] Work Phone: 1([phone]) 946-430103-18-[address] Buckley [facility] August 06, 2022 12:25pm Note Date/Time August 06, 2022 7:2 3am [facility] Medical Records Department [address] [place] [address] Progress Note - Hospitalist 08/06/22715 MR#: [id number] Acct: [id number] Name: ASIF DELA CRUZ Rep #:[id number] : 1955 67 From: Carrillo Buckley DO PCP: Dr. Pat Bennett MD Status:ADM IN [facility] Reason for Visit Reason for Visit: Diagnoses [...] (Auto) 80.6 H, Lymph % (Auto) 11.7L, Cook % (Auto) 6.7, Eos % (Auto) 0.1, [...] off anticoagulation at this time. Admit to [facility] with telemetry. * CAD status post stents Stable N.p.o.. Hold home antiplatelets. * Hypertension Blood pressure is not within goal Home blood pressure medication held secondary to n.p.o. status. As needed hydralazine IV ordered. Trend blood pressure and adjust blood pressure medications. DVT Prophylaxis SCDs ordered Charges/Coding Visit Charges Inpatient E&M: 96269 Subs Hosp L2 08/06/22 1225 <Electronically signed by Carrillo Buckley DO> Cosigner Signature (if applicable): CC: ~ Signed [facility] Work Phone: 1(645) 116-617203-18-[address] Butler [facility] August 06, 2022 8:26am Note Date/Time August 06, 2022 8:2 4am [facility] Medical Records Department [address] [place] [address] Progress Note - Surgery 08/06/22823 MR#: [id number] Acct: [id number] Name: ASIF DELA CRUZ Rep #:[id number] : 1955 67 From: Franck reyes MD PCP: Dr. Pat Bennett MD Status:ADM IN Location: [place] [address] Subjective Subjective Patient was very nauseous this [...] (Auto) 80.6 H, Lymph % (Auto) 11.7L, Cook % (Auto) 6.7, Eos % (Auto) 0.1, [...] at this time. Franck Butler MD Pager: [facility] [address] [place] [address], [address] [place] [address] Office: 08/06/22 08 <Electronically signed by Franck Butler MD> Cosigner Signature (if applicable): CC: ~ Signed [facility] Work Phone: 1(720) 926-971803-17-[address] Alva [facility] August 05, 2022 8:58pm Note Date/Time August 05, 2022 7:2 6am [facility] Medical Records Department [address] [place] [address] Consultation - Surgical 08/05/22723 MR#: [id number] Acct: [id number] Name: ASIF DELA CRUZ Rep #:[id number] : 1955 67 From: Dior Alva MD PCP: Dr. Pat Bennett MD Status:ADM IN Location: [id number] Assessment & Plan Assessment/Plan (1) Abdominal pain: [...] small bowel follow-through. Dior Alva M.D. Pager: [phone] [facility] [address] [place] [address], [facility] [address] [place] [address] Office: [phone] HPI Consult Data Date of Consult: 08/05/22 [...] and believes that this for her bowels. [facility] Medical History (Updated 08/05/22 @ 07:[address] Carrillo Buckley, ) Acute kidney injury superimposed on chronic kidney disease Atherosclerotic heart disease of [place] coronary artery without angina pectoris Atrial fibrillation [...] 30-59 Umbilical hernia Home Medications blood-glucose meter (Amiato Verio Flex Start kit) #1 ea 11/11/20 [Rx Last Taken Unknown] blood sugar diagnostic (ProsonixTouch Verio test strips) #300 ea 11/12/20 [Rx Last Taken Unknown] lancets (ProsonixTouch UltraSoft Lancets) #300 ea 11/12/20 [Rx Last [...] gauge x 5/16 (Lite Touch Insulin Pen [place]) #100 ea 11/10/21 [Rx Last Taken Unknown] [...] 82.0 H, Lymph % (Auto) 10.5 L, Cook % (Auto) 5.1, Eos % (Auto) 0.5, [...] % (Auto) 66.9, Lymph % (Auto) 21.4, Cook % (Auto) 8.7, Eos % (Auto) 1.9, [...] EDT , Charges/Coding Visit Charges Inpatient E&M: 97170 Init Hosp L3 08/05/222057 <Electronically signed by Dior Alva MD> Cosigner Signature (if applicable): CC: Dr. Daljit Mg MD; Dr. Pat Bennett MD; Dr. Dior Alva MD~ Signed [facility] Work Phone: 1(808) 716-971003-17-[address] Buckley [facility] August 05, 2022 2:52pm Note Date/Time August 05, 2022 7:2 8am [facility] Medical Records Department [address] [place] [address] Progress Note - Hospitalist 08/05/22 0721 MR#: [id number] Acct: [id number] Name: ASIF DELA CRUZ Rep #:[id number] : 1955 67 From: Carrillo Buckley DO PCP: Dr. Pat Bennett MD Status:ADM IN Location: [place] 134125-1 Reason for Visit Reason for Visit: Diagnoses [...] 82.0 H, Lymph % (Auto) 10.5 L, Cook % (Auto) 5.1, Eos % (Auto) 0.5, [...] Std Deviation 55.0 H, RDW Coeff of Ywa 15.8 H, Plt Count 420, MPV 9.2, Immature Gran % (Auto) 0.800, Neut % (Auto) 66.9, Lymph % (Auto) 21.4, Cook % (Auto) 8.7, Eos % (Auto) 1.9, [...] SCDs ordered Charges/Coding Visit Charges Inpatient E&M: 76834 Subs Hosp L2 08/05/22 1156 <Electronically signed [...] Cosigner Signature (if applicable): cc: ~* Signed [facility] Work Phone: 1(978) 163-630803-17-[address] Hernandez [facility] August 04, 2022 11:09pm Note Date/Time August 04, 2022 5:2 8pm [facility] Medical Records Department [address] [place] [address] Emergency Department Summary 08/04/22 MR#: [id number] Acct: [id number] Name: ASIF DELA CRUZ Rep #:[id number] : 1955 67 From: Sanju Hernandez MD PCP: Dr. Pat Bennett MD Status:ADM IN Location: [place] 134125-1 HPI History of Present Illness Chief Complaint: [...] chronic kidney disease Atherosclerotic heart disease of [place] coronary artery without angina pectoris Atrial fibrillation [...] disease GFR 30-59 Home Medications blood-glucose meter (Amiato Verio Flex Start kit) #1 ea 11/11/20 [Rx Last Taken Unknown] blood sugar diagnostic (ProsonixTouch Verio test strips) #300 ea 11/12/20 [Rx Last Taken Unknown] lancets (ProsonixTouch UltraSoft Lancets) #300 ea 11/12/20 [Rx Last [...] gauge x 5/16 (Lite Touch Insulin Pen [place]) #100 ea 11/10/21 [Rx Last Taken Unknown] [...] 82.0 H Lymph % (Auto) 10.5 L Cook % (Auto) 5.1 Eos % (Auto) 0.5 [...] PO BID Qty: 180 3RF Hold Instructions: [facility]; hold 02/12 carvedilol 6.25 mg tablet 6.25 mg PO BID Qty: 180 4RF Rx Instructions: must administer with a meal/food pantoprazole 40 mg tablet,delayed release (DR/EC) 40 mg PO DAILY Qty: 90 3RF (DME) pen needle, diabetic [Lite Touch Insulin Pen [place]] 31 gauge x 5/16 needle See Rx [...] your Primary Care Provider. Call [facility] ([phone]) or report to the closest Emergency Room. Call 911 if necessary. 08/04/222308 <Electronically signed by Sanju Hernandez MD> Cosigner Signature (if applicable): CC: Dr. Pat Bennett MD ~ Signed [facility] Work Phone: 1(276) 217-138903-16-2023 History and physical note Author Dr. Mg [facility] August 04, 2022 8:35pm Note Date/Time August 04, 2022 7:2 8pm [facility] Medical Records Department [address] [place] [address] H&P Exam - Hospitalist 08/04/221927 MR#: [id number] Acct: [id number] Name: ASIF DELA CRUZ Rep #:[id number] : 1955 67 From: Daljit Mg MD PCP: Dr. Pat Bennett MD Status:ADM IN Location: [place] [address] HPI - General General Date of Admission: [...] of has been having a viral illness. [facility] Medical History Acute kidney injury superimposed on chronic kidney disease Atherosclerotic heart disease of [place] coronary artery without angina pectoris Atrial fibrillation [...] disease GFR 30-59 Home Medications blood-glucose meter ([employer] Verio Flex Start kit) #1 ea 11/11/20 [Rx Last Taken Unknown] blood sugar diagnostic (ProsonixTouch Verio test strips) #300 ea 11/12/20 [Rx Last Taken Unknown] lancets (ProsonixTouch UltraSoft Lancets) #300 ea 11/12/20 [Rx Last [...] gauge x 5/16 (Lite Touch Insulin Pen [place]) #100 ea 11/10/21 [Rx Last Taken Unknown] [...] 82.0 H, Lymph % (Auto) 10.5 L, Cook % (Auto) 5.1, Eos % (Auto) 0.5, [...] off anticoagulation at this time. Admit to [facility] with telemetry. CAD status post stents Stable N.p.o.. Hold home antiplatelets. Hypertension Blood pressure is not within goal Home blood pressure medication held secondary to n.p.o. status. As needed hydralazine IV ordered. Trend blood pressure and adjust blood pressure medications. DVT Prophylaxis SCDs ordered Charges/Coding Visit Charges Inpatient E&M: 43492 Init Hosp L3 08/04/222034 <Electronically signed by Daljit Mg MD> Cosigner Signature (if applicable): CC: Dr. Daljit Mg MD; Dr. Pat Bennett MD~ Signed [facility] Work Phone: 1(960) 906-633906-01-2022 History of Present illness Narrative* Rashard is seen today in follow-up. She was at [facility] late October with 5-day history of [...] was in 2018. CT scan reviewed from [facility] revealed small bowel loops with fluid and air-filled segments without transition point and and normal colon without obvious diverticulitis. [facility] [address] Work Phone: 1(159) 539-275904-22-2022 History of Present illness Narrative* Pepito Joy RN - 09/10/2021 1:14 PM EDT Patient presented in office today for nurse only, EKG ordered by Dr. Zuñiga. EKG completed and routed to ordering provider. Patient voiced no needs. documented in this [id number] Instructions* Patient Instructions* Pepito Joy RN - 09/10/2021 8:14 AM EDT You can reach Dr Coleman's nurses, Pepito Joy RN and Sara Jackson RN, at [phone]. If unable to reach us please leave [...] listed below please call the office at [phone] and ask to speak to the schedulers to make an appointment. *If you made an -appointment prior to leaving the office today disregard this message. To cancel or reschedule your office visit or testing please call [phone]. If you need to cancel it must be 24 hours prior to that appt. Thank you. ....If you were seen in the [place] office today. If any testing was ordered a puff ironer from [facility] group will call you to schedule your testing. If you do not hear from a puff ironer after a couple of days please call the office at [phone] and ask to speak to a puff ironer. documented in this [id number] Evaluation + Plan note* Assessment & Plan Note - Anton Zuñiga MD - 08/23/2021 2:15 PM EDT Associated Problem(s): Angina pectoris (HCC) Responsive to nitroglycerin at this time. On appropriate medical therapy. No resting discomfort. I cautioned her regarding seeking emergency medicine help if she has worsening symptoms or rest pain. [id number] Miscellaneous Notes* Assessment & Plan Note - Anton Zuñiga MD - 08/23/2021 2:15 PM EDTAssociated Problem(s): Angina pectoris (HCC) Responsive to nitroglycerin at this time. On appropriate medical therapy. No resting discomfort. I cautioned her regarding seeking emergency medicine help if she has worsening symptoms or rest pain. * Assessment & Plan Note - Anton Zuiñga MD - 08/23/2021 2:09 PM EDT Associated [...] has agreed to proceed documented in this [id number] Evaluation + Plan note* Assessment & Plan [...] and benefits and has agreed to proceed [id number] History of Present illness Narrative* Anton Zuñiga MD - 08/23/2021 12:30 PM EDT Interventional Cardiology Clinic Consult Heart & Vascular [facility] 08/23/2021 Anton Zuñiga MD [address] [facility] [address] Patient: Asif Dela Cruz Date of : [...] underwent another cardiac catheterization on 02/16/2021 at [facility]. At that time she was noted to [...] LDLCALC, LDLDIRECT, TRIG, HDL documented in this [id number] Evaluation note* Diagnosis Onset Date Resolution Status [...] shoulder pain noneacti ve Yeast infection noneactive [facility] Work Phone: Evaluation note* Diagnosis Coronary artery disease involving [place] coronary artery, unspecified whether angina present, unspecified whether [place] or transplanted heart- Primary Angina pectoris (HCC) Other and unspecified angina pectoris Pre-operative cardiovascular examination [facility] Diagnosis Angina pectoris (HCC)- Primary Other and unspecified angina pectoris Coronary artery disease involving [place] coronary artery, unspecified whether angina present, unspecified whether [place] or transplanted heart [facility] Diagnosis Coronary artery disease involving [place] coronary artery, unspecified whether angina present, unspecified whether [place] or transplanted heart- Primary Angina pectoris (HCC) Other and unspecified angina pectoris Coronary artery disease involving [place] coronary artery, unspecified whether angina present, unspecified whether [place] or transplanted heart Angina pectoris (HCC) Other and unspecified angina pectoris Coronary artery disease involving [place] coronary artery, unspecified whether angina present, unspecified whether [place] or transplanted heart Angina pectoris (HCC) Other and unspecified angina pectoris [facility] Diagnosis Coronary artery disease involving [place] coronary artery, unspecified whether angina present, unspecified whether [place] or transplanted heart Angina pectoris (HCC) Other and unspecified angina pectoris CAD (coronary artery disease) Coronary atherosclerosis of unspecified type of vessel, [place] or graft Coronary artery disease involving [place] coronary artery, unspecified whether angina present, unspecified whether [place] or transplanted heart Angina pectoris (HCC) Other and unspecified angina pectoris Pre-operative cardiovascular examination Coronary artery disease involving [place] coronary artery, unspecified whether angina present, unspecified whether [place] or transplanted heart Angina pectoris (HCC) Other and unspecified angina pectoris [facility] in [facility] Diagnosis Onset Date Resolution Status Fibromyalgia [...] Dizziness acute CASTRO (dyspnea on exertion) ac [place] Fatigue acute Palpitations acute Atherosclerotic heart diseas e of [place] coronary artery without angina pectoris chronic Hyperlipidemia chronic Hypertension chronic Paroxysmal atrial fibrillation chronic Presence of stent in coronary artery August, [facility] Work Phone: Evaluation note* Diagnosis [...] Dizziness acute CASTRO (dyspnea on exertion) [place] Fatigue acute Palpitations acute Atherosclerotic heart diseas e of [place] coronary artery without angina pectoris chronic Hyperlipidemia chronic Hypertension chronic Paroxysmal atrial fibrillation chronic Presence of stent in coronary artery August, chronic [facility]ukocytosis [facility]* [...] Dizziness acute CASTRO (dyspnea on exertion) [place] Fatigue acute Palpitations acute Atherosclerotic heart diseas e of [place] coronary artery without angina pectoris chronic Hyperlipidemia chronic Hypertension chronic Paroxysmal atrial fibrillation chronic Presence of stent in coronary artery August, chronic Gastroenteritis acute Leukocytosis acute [facility]* [...] Dizziness acute CASTRO (dyspnea on exertion) [place] Fatigue acute Palpitations acute Atherosclerotic heart diseas e of [place] coronary artery without angina pectoris chronic Hyperlipidemia chronic Hypertension chronic Paroxysmal atrial fibrillation chronic Presence of stent in coronary artery August, chronic Gastroenteritis resolved Leukocytosis resolved Small bowel obstruction reso lved Acute kidney injury noneacti ve Abdominal pain noneactive [facility] Work Phone: Evaluation note* Diagnosis Onset Date Resolution Status Dizziness acute CASTRO (dyspnea on exertion) [place] Fatigue acute Palpitations acute Atherosclerotic heart diseas e of [place] coronary artery without angina pectoris chronic Hyperlipidemia chronic Hypertension chronic Paroxysmal atrial fibrillation chronic Presence of stent in coronary artery August, chronic Gastroenteritis resolved Leukocytosis resolved Small bowel obstruction reso lved Acute kidney injury noneacti ve Abdominal pain noneactive Upper respiratory infection noneactive [facility] Work Phone: Evaluation note* Diagnosis Onset Date Resolution Status Dizziness acute CASTRO (dyspnea on exertion) [place] Fatigue acute Palpitations acute Atherosclerotic heart diseas e of [place] coronary artery without angina pectoris chronic Hyperlipidemia chronic Paroxysmal atrial fibrillation chronic Presence of stent in coronary artery August, chronic Gastroenteritis resolved Leukocytosis resolved Small bowel obstruction reso lved Acute kidney injury noneacti ve Abdominal pain noneactive Upper respiratory infection noneactive Aortic stenosis acute Essential hypertension acute Atherosclerotic heart diseas e of [place] coronary artery without angina pectoris chronic Hyperlipidemia chronic Paroxysmal atrial fibrillation chronic Presence of stent in coronary artery August, chronic [facility] Work Phone: Evaluation note* Diagnosis Onset Date Resolution Status Gastroenteritis resolved Leukocytosis resolved Small bowel obstruction reso lved Acute kidney injury noneacti ve Abdominal pain noneactive Upper respiratory infection noneactive Aortic stenosis acute Essential hypertension acute Atherosclerotic heart diseas e of [place] coronary artery without angina pectoris chronic Hyperlipidemia chronic Paroxysmal atrial fibrillation chronic Presence of stent in coronary artery August, chronic CKD (chronic kidney disease) stage 3, GFR 30-59 ml/min chronic Hypothyroidism chronic Type 2 diabetes mellitus [facility] Work Phone: Evaluation note* Diagnosis Onset Date Resolution Status Upper respiratory infection noneactive Aortic stenosis acute Essential hypertension acute Atherosclerotic heart diseas e of [place] coronary artery without angina pectoris chronic Hyperlipidemia chronic Paroxysmal atrial fibrillation chronic Presence of stent in coronary artery August, chronic CKD (chronic kidney disease) stage 3, GFR 30-59 ml/min chronic Hypothyroidism chronic Type 2 diabetes mellitus [facility] Work Phone: Evaluation note* Diagnosis Onset Date Resolution Status Aortic stenosis acute Essential hypertension acute Atherosclerotic heart diseas e of [place] coronary artery without angina pectoris chronic Hyperlipidemia [...] media acute Tinnitus of both ears acute [facility] Work Phone: Evaluation note* Diagnosis Onset Date [...] Ileus acute Nausea vomiting and diarrhea acute [facility] Work Phone: Evaluation note* Diagnosis Onset Date [...] Sialoadenitis of submandibular gland acute Abdominal pain [facility] Work Phone: Evaluation note* Diagnosis [...] acute Type 2 diabetes mellitus chr onic [facility] Work Phone: Evaluation note* Diagnosis Onset Date [...] Mass of soft tissue of chest acute [facility] Work Phone: Evaluation note* Diagnosis Onset Date Resolution Status Diabetes acute 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 Hyperlipidemia chronic Hypothyroidism chronic 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 GFR 30-59 chronic Acute bronchitis acute Mass of soft tissue of chest acute [facility] Work Phone: Evaluation note* Diagnosis Onset Date Resolution Status Anemia acute 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 Atherosclerotic heart diseas e of [place] coronary artery without angina pectoris chronic Essential hypertension chron ic Hypothyroidism chronic Paroxysmal atrial fibrillation chronic 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 GFR 30-59 chronic Immunization due noneactive Smokes cigarettes noneactive Establishing care with new doctor, encounter for noneactive Bipolar disorder noneactive Chronic cough noneactive Anemia acute 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 Atherosclerotic heart diseas e of [place] coronary artery without angina pectoris chronic Essential [...] ic Hypothyroidism chronic Type 2 diabetes mellitus [facility] Work Phone: Evaluation note* Diagnosis Onset [...] Presence of stent in coronary artery August, [facility] Work Phone: Evaluation note* Diagnosis [...] Dizziness acute Atherosclerotic heart diseas e of [place] coronary artery without angina pectoris chronic Essential hypertension chron ic Hypothyroidism chronic Paroxysmal atrial fibrillation chronic 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 GFR 30-59 chronic Sleep concern noneactive Vaginal itching noneactive Bipolar disorder noneactive Dysuria noneactive Right shoulder pain noneacti ve Quit smoking noneactive [facility] Work Phone: Evaluation note* Diagnosis Onset Date [...] Dizziness acute Atherosclerotic heart diseas e of [place] coronary artery without angina pectoris chronic Essential hypertension chron ic Hypothyroidism chronic Paroxysmal atrial fibrillation chronic 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 GFR 30-59 chronic Sleep concern noneactive Vaginal itching noneactive Bipolar disorder noneactive Dysuria noneactive Right shoulder pain noneacti ve Quit smoking noneactive [facility] Work Phone: Evaluation note* Diagnosis Onset Date [...] Dizziness acute Atherosclerotic heart diseas e of [place] coronary artery without angina pectoris chronic Essential hypertension chron ic Hypothyroidism chronic Paroxysmal atrial fibrillation chronic 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 Mg [facility] August 04, 2022 8:35pm Note Date/Time August 04, 2022 7:2 8pm [facility] Medical Records Department [address] [place] [address] H&P Exam - Hospitalist 08/04/221927 MR#: [id number] Acct: [id number] Name: ASIF DELA CRUZ Rep #:[id number] : [id number] 67 From: Daljit Mg MD PCP: Dr. Pat Bennett MD Status:ADM IN [place] [facility] [place] HPI - General General Date of Admission: [...] of has been having a viral illness. [facility] Medical History Acute kidney injury superimposed on chronic kidney disease Atherosclerotic heart disease of [place] coronary artery without angina pectoris Atrial fibrillation [...] disease GFR 30-59 Home Medications blood-glucose meter (Amiato Verio Flex Start kit) #1 ea 11/11/20 [Rx Last Taken Unknown] blood sugar diagnostic (ProsonixTouch Verio test strips) #300 ea 11/12/20 [Rx Last Taken Unknown] lancets (ProsonixTouch UltraSoft Lancets) #300 ea 11/12/20 [Rx Last [...] gauge x 5/16 (Lite Touch Insulin Pen [place]) #100 ea 11/10/21 [Rx Last Taken Unknown] [...] 82.0 H, Lymph % (Auto) 10.5 L, Cook % (Auto) 5.1, Eos % (Auto) 0.5, [...] off anticoagulation at this time. Admit to [facility] with telemetry. CAD status post stents Stable N.p.o.. Hold home antiplatelets. Hypertension Blood pressure is not within goal Home blood pressure medication held secondary to n.p.o. status. As needed hydralazine IV ordered. Trend blood pressure and adjust blood pressure medications. DVT Prophylaxis SCDs ordered Charges/Coding Visit Charges Inpatient E&M: 66455 Init Hosp L3 08/04/222034 <Electronically signed by Daljit Mg MD> Cosigner Signature (if applicable): CC: Dr. Daljit Mg MD; Dr. Pat Bennett MD~ Signed [facility] Work Phone: History and physical note Author Carol Petty [facility] Note Date/Time February 05, 2025 5:30pm [facility] Medical Records Department [address] [place] [address] H&P Exam - Hospitalist 02/05/25 1703 MR#: [id number] Acct: [id number] Name: ASIF DELA CRUZ Rep #:[id number] : [id number] 69 From: Carol Petty MD PCP: Dr. Denise Uribe MD Status:ADM IN Location: [facility] [id number] HPI - General General Date of Admission: 02/05/25 Date of Service: 02/05/25 Chief Complaint: Cough, generalized weakness, loss of consciousness HPI Narrative ASIF DELA CRUZ, is a 69-year-old female history of gout, coronary artery disease, A-fib, diabetes, hypothyroidism, GERD, bipolar disorder who presented [facility] ED 02/05/2025 for evaluation of generalized weakness [...] shortness of breath but none well resting [facility] Medical History Recurrent falls Chronic anemia Acute kidney injury Bipolar disorder Umbilical hernia Hypothyroidism Hiatal hernia Gout Essential hypertension Atrial fibrillation Overweight (BMI 25.0-29.9) Polyneuropathy due to type 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) infectious disease #30 GMS flash glucose sensor [...] % (Auto) 65.9, Lymph % (Auto) 19.0, Cook % (Auto) 10.7 H, Eos % (Auto) [...] Clarity Clear, Urine pH 5.0, Ur Specific [place] 1.020, Urine Protein 100 H, Urine Glucose [...] ischemia and volume loss. Reading Location: [facility] Cervical Spine CT 02/05/25 14:50 IMPRESSION: DEGENERATIVE CHANGES OF THE CERVICAL SPINE. NO EVIDENCE OF SIGNIFICANT OSSEOUS CENTRAL CANAL OR NEURAL FORAMINAL STENOSIS. Reading [facility] Chest X-Ray 02/05/25 14:55 IMPRESSION: Mild cardiac enlargement. Reading Location: [facility] Assessment & Plan Assessment/Plan (1) Syncope: PLAN: [...] Petty MD Charges/Coding Visit Charges Inpatient E&M: 02574 Init Hosp L2 02/05/25 8810 <Electronically signed by Carol Petty MD> Cosigner Signature (if applicable): CC: Dr. Denise Uribe MD; Dr. Carol Petty MD~ Signed [facility] Work Phone: History of Present illness NarrativeChris [...] to be unchanged by her current bowel regimen.[facility] Work Phone: [facility] Work Phone: [facility] Discharge instructionsW[facility] Work Phone: Hospital Discharge instructionsW[facility] Work Phone: Hospital Discharge instructions Additional Instructions Please make sure you are taking your pantoprazole daily. Please call your event security officer for early follow-upW[facility] Work Phone: Hospital Discharge instructionsAdditional Instructions Follow-up with your PCP and return for any other concerns or worsening symptoms. 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 Advance Directives and Living Will Advance Directive Response Recorded Date/ Time Advance Directives No January 9:27am Living Will No July 03 4:19pm Power of Sand Molder No July 03, 2021 4:19pm Advance Directive Response Recorded Date/ Time Advance Directives No January 9:27am Living Will No November 07, 2021 4:38pm Power of Sand Molder No November 07 4:38pm Advance Directive Response Recorded Date/ Time Name of Medical Power of Sand Molder Lisa Lawson November 07, 2021 9:38pm Advance Directives No January 9:27am Living Will Yes November 07, 2021 9:38pm Power of Sand Molder Yes November 07 9:38pm Advance Directive Response Recorded Date/ Time Name of Medical Power of Sand Molder Lisa Renny November 07, 2021 9:38pm Advance Directives No January 9:27am Living Will No November 16, 2021 11:13am Power of Sand Molder No November 16 11:13am Advance Directive Response Recorded Date/ Time Advance Directives No January 8:27am Living Will No March 28 3:42pm Power of Sand Molder No March 28, 2022 3:42pm Advance Directive Response Recorded Date/ Time Advance Directives No January 9:27am Living Will No August 04, 2022 4:57pm Power of Sand Molder No August 04 4:57pm Advance Directive Response Recorded Date/ Time Advance Directives No January 9:27am Living Will No August 04, 2022 9:10pm Power of Sand Molder No August 04 9:10pm Advance Directive Response Recorded Date/ Time Advance Directives No January 9:27am Living Will No September 15, 2022 3:47pm Power of Sand Molder No September 15 3:47pm Advance Directive Response Recorded Date/ Time Advance Directives No January 8:27am Living Will No September 15, 2022 2:47pm Power of Sand Molder No September 15 2:47pm Advance Directive Response Recorded Date/ Time Advance Directives No January 9:27am Living Will No September 11, 2023 10:37am Power of Sand Molder No September 10 10:37am Advance Directive Response Recorded Date/ Time Living Will No January 28 024 2:06pm Power of Sand Molder No January 29, 2024 2:06pm Living Will No May 13 024 11:16pm Power of Sand Molder No May 13, 2024 11:16pm Living Will No June 16 9:40pm Power of Sand Molder No June 16, 2024 9:40pm Advance Directives No January 9:27am Advance Directive Response Recorded Date/ Time Living Will No January 28 024 2:06pm Do you have a Healthcare Power of Sand Molder? No January 29, 2024 2:06pm Living Will No May 13 11:16pm Do you have a Healthcare Power of Sand Molder? No May 13, 2024 11:16pm Living Will No June 16 9:40pm Do you have a Healthcare Power of Sand Molder? No June 16, 2024 9:40pm Advance Directives No January 9:27am Advance Directive Response Recorded Date/ Time Living Will No May 13 11:16pm Do you have a Healthcare Power of Sand Molder? No May 13, 2024 11:16pm Living Will No June 16 9:40pm Do you have a Healthcare Power of Sand Molder? No June 16, 2024 9:40pm Do you have a Healthcare Power of Sand Molder? No September 17, 2024 7:01pm Advance Directives No January 9:27am Advance Directive Response Recorded Date/ Time Do you have a Healthcare Power of Sand Molder? No November 15, 2024 6:44pm Do you have a Healthcare Power of Sand Molder? No September 17, 2024 11:13pm Advance Directives No January 9:27am Advance Directive Response Recorded Date/ Time Do you have a Healthcare Power of Sand Molder? No November 15, 2024 6:44pm Do you have a Healthcare Power of Sand Molder? No February 05, 2025 1:18pm Advance Directives [...] type Fatigue, unspecified type 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 jail current use of non-steroidal anti-inflammatories (NSAID) Hypertension, unspecified type Gastroesophageal reflux disease, esophagitis presence not specified Hypothyroidism, unspecified type Type II diabetes mellitus with neurological manifestations Lower abdominal pain Procedures EMG & NERVE CONDUCTION Bassem Ding Jr., DO [address] [place] [id number] Status Reason Specialty Diagnoses / Procedures Re ferred By Contact Referred To Contact Closed Ultrasound Diagnoses Acute renal failure, unspecified acute renal failure type Procedures US RENAL RETROPERITONEAL Vladimir Landon, DO [address] [place] [address] [facility] [address] [place] [phone] Status Reason Specialty Diagnoses / Procedures Referre d By Contact Referred To Contact Closed Ultrasound Diagnoses Acute renal failure, unspecified acute renal failure type Procedures US PELVIS LIMITED Vladimir Landon, DO [address] [place] [address] [facility] [address] [place] [phone] Status Reason Specialty Diagnoses / Procedures Referred By Contact Referred To Contact New Request Physical Therapy Diagnoses Chronic right shoulder pain Hugo Murray, DO [address] [place] [phone] Status Reason Specialty Diagnoses / Procedures Referre d By Contact Referred To Contact Closed Ultrasound Diagnoses Intermittent claudication Pre-operative clearance Atherosclerosis of [place] coronary artery of [place] heart, angina presence unspecified Procedures US DOPPLER ARTERIAL LEGS BILATERAL Sherwin Cali II, MD [address] [place], [place] [id number] [facility] [address] [place], [place] [phone] Status Reason Specialty Diagnoses / Procedures Re ferred By Contact Referred To Contact New Request Procedures INPATIENT ADMISSION NOTIFICATION Robles Kapadia MD [address] [place] [address] Status Reason Specialty Diagnoses / Procedures Referred By Contact Referred To Contact New Request Procedures ECG Rashard Gallegos MD [address] [place], [place] [phone] Status Reason Specialty Diagnoses / Procedures Referred By Contact Referred To Contact New Request Physical Therapy Diagnoses Left hip pain Hugo Murray, DO [address] [place], [place] [phone] Status Reason Specialty Diagnoses / Procedures Re [...] of both shoulders Bassem Ding Jr., DO [address] [place] [phone] Bravo Cote MD [address] [place] [id number] Status Reason Specialty Diagnoses / Procedures Re [...] of both shoulders Bassem Ding Jr., DO [address] [place] [phone] Hugo Murray, DO [address] [place] [id number] Status Reason Specialty Diagnoses / Procedures Re [...] shoulders Timur Naranjo, Bassem Mix, DO [address] [facility] [place] [address] Servando Jean MD [address] [place] [address] Specialty Diagnoses / Procedures Referred By Contac t Referred To Contact Cardiology Diagnoses Coronary artery disease involving [place] coronary artery, unspecified whether angina present, unspecified whether [place] or transplanted heart Angina pectoris (HCC) Pre-operative cardiovascular examination Procedures ECG 12 Lead Yogesh, Anton Chan MD [address] [facility] [address] [place] [address] Referral ID Status Reason Start Date Expiration Date V isits Requested Visits Authorized [id number] Authorized 08/27/2021 08/27/2022 1 1 Assessments Diagnosis [...] fibromyalgia Personal history of other musculoskeletal disorders 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 * Vomiting (Adult) (Israeli) * Dehydration (Israeli) in this encounter* Instructions* Jennifer Peres RN [...] free to contact your physician by calling [phone] ([phone]). If it is after hours you can contact the compensation analyst doctor by calling [facility] at [phone]. Prescription refills will only be done during [...] next business day for an appointment at [phone]) documented in this encounter* Discharge Instr - [...] be sent through Care Everywhere. * Fatigue (Israeli) * Dizziness (Israeli) documented in this encounter History of Present [...] 5/5 Neers: posRt Bailey: pos-Rt Apprehension: NEG Arcanum's: NEG Speed's: NEG Yergason's: NEG Crossover: NEG [...] this note may have been created with [employer] or other software which leads to grammatical and typographical errors which are not strategic partnership representative of the intent with my spoken words. Clinical assistant director of residence life/AT/MA was acting as a scribe today for this note. I have performed all essentialcomponents of the history, and physical exam. I have confirmed the diagnosis and developed a plan of care at this visit. I have reviewed the note following the visit and have made edits as appropriate to my evaluation and plan of care. Hugo Murray DO * [place], Seth - 04/15/2019 1:45 PM EST Associated [...] 5/5 Neers: posRt Bailey: pos-Rt Apprehension: NEG Arcanum's: NEG Speed's: NEG Yergason's: NEG Crossover: NEG [...] this note may have been created with [employer] or other software which leads to grammatical and typographical errors which are not strategic partnership representative of the intent with my spoken [...] modification and medications. Re-evaluate in 1 month. ([id number]) EXAM SHOULDER EXAM RIGHT LEFT Inspection No [...] pos rt Bailey: pos rt Apprehension: NEG Arcanum's: NEG Speed's: NEG Yergason's: NEG Crossover: NEG [...] A total of 8+ minutes was spent [id number] with the patient ensuring understanding of this exercise program. *Portions of this note may have been created with [employer] or other software which leads to grammatical and typographical errors which are not strategic partnership representative of the intent with my spoken words. Clinical assistant director of residence life/AT/MA was acting as a scribe today for [...] pos rt Bailey: pos rt Apprehension: NEG Arcanum's: NEG Speed's: NEG Yergason's: NEG Crossover: NEG [...] A total of 8+ minutes was spent [id number] with the patient ensuring understanding of this [...] this note may have been created with [employer] or other software which leads to grammatical and typographical errors which are not strategic partnership representative of the intent with my spoken [...] at he most recent EKG done at [facility] do you feel she needs any updated [...] the anesthesiologist would both say that the asbestos siding mechanic said that it was okay, and thereby [...] so we did an EKG at her [facility] appointment. Would you please review the EKG [...] follow and assist in discharge planning. 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 Clinical assistant director of residence life/AT/EMILY was acting as a scribe today for [...] this note may have been created with [employer] or other software which leads to grammatical and typographical errors which are not strategic partnership representative of the intent with my spoken words. documented in this encounter* Timur Naranjo, aBssem Mix, - 03/04/2019 2:00 PM EDT History [...] She displays a negative Romberg sign. 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 Patient has been evaluated at [facility] Hem/Onc and was told she did not [...] exertion) Fatigue Palpitations Atherosclerotic heart disease of [place] coronary artery without angina pectoris Hyperlipidemia Hypertension [...] exertion) Fatigue Palpitations Atherosclerotic heart disease of [place] coronary artery without angina pectoris Hyperlipidemia Hypertension Paroxysmal atrial fibrillation Presence of stent in coronary artery Leukocytosis Small bowel obstruction Chief Complaint Follow up 4 M FU S/P [facility] E-ORDER EORDERS Dizziness (cardiology) PALPITATIONS [...] exertion) Fatigue Palpitations Atherosclerotic heart disease of [place] coronary artery without angina pectoris Hyperlipidemia Hypertension Paroxysmal atrial fibrillation Presence of stent in coronary artery Gastroenteritis Leukocytosis Small bowel obstruction Chief Complaint Follow up 4 M FU S/P [facility] ([facility]) E-ORDER EORDERS Dizziness (cardiology) PALPITATIONS [...] exertion) Fatigue Palpitations Atherosclerotic heart disease of [place] coronary artery without angina pectoris Hyperlipidemia Hypertension Paroxysmal atrial fibrillation Presence of stent in coronary artery Gastroenteritis Leukocytosis Small bowel obstruction Acute kidney injury Abdominal pain Chief Complaint S/P [facility] ([facility]) E-ORDER EORDERS Dizziness (cardiology) PALPITATIONS DIZZINESS SBO CHEST PAIN SBO SBO SBO SBO SBO [facility] ABD PA[facility],NAUSEA UPPER RESPITORY INFECTION Reason for Visit Dizziness CASTRO (dyspnea on exertion) Fatigue Palpitations Atherosclerotic heart disease of [place] coronary artery without angina pectoris Hyperlipidemia Hypertension Paroxysmal atrial fibrillation Presence of stent in coronary artery Gastroenteritis Leukocytosis Small bowel obstruction Acute kidney injury Abdominal pain Upper respiratory infection Chief Complaint S/P [facility] ([facility] E-ORDER EORDERS Dizziness (cardiology) PALPITATIONS DIZZINESS SBO CHEST PAIN SBO SBO SBO SBO SBO [facility] - KILO ABD PAIN,NAUSEA UPPER RESPITORY INFECTION 10-12 MO F/U EORDER Reason for Visit Dizziness CASTRO (dyspnea on exertion) Fatigue Palpitations Atherosclerotic heart disease of [place] coronary artery without angina pectoris Hyperlipidemia Paroxysmal atrial fibrillation Presence of stent in coronary artery Gastroenteritis Leukocytosis Small bowel obstruction Acute kidney injury Abdominal pain Upper respiratory infection Aortic stenosis Essential hypertension Atherosclerotic heart disease of [place] coronary artery without angina pectoris Hyperlipidemia Paroxysmal atrial fibrillation Presence of stent in coronary artery Chief Complaint S/P [facility] ([facility]) E-ORDER EORDERS Dizziness (cardiology) PALPITATIONS DIZZINESS SBO CHEST PAIN SBO SBO SBO SBO SBO SBO [facility] - KILO ABD PAIN,NAUSEA UPPER RESPITORY INFECTION 10-12 MO F/U EORDER MURMUR Reason for Visit Dizziness CASTRO (dyspnea on exertion) Fatigue Palpitations Atherosclerotic heart disease of [place] coronary artery without angina pectoris Hyperlipidemia Paroxysmal atrial fibrillation Presence of stent in coronary artery Gastroenteritis Leukocytosis Small bowel obstruction Acute kidney injury Abdominal pain Upper respiratory infection Aortic stenosis Essential hypertension Atherosclerotic heart disease of [place] coronary artery without angina pectoris Hyperlipidemia Paroxysmal [...] stenosis Essential hypertension Atherosclerotic heart disease of [place] coronary artery without angina pectoris Hyperlipidemia Paroxysmal atrial fibrillation Presence of stent in coronary artery CKD (chronic kidney disease) stage 3, GFR 30-59 ml/min Hypothyroidism Type 2 diabetes mellitus Chief Complaint UPPER RESPITORY INFE CTION 10-12 MO F/U EORDER MURMUR 6 M FU EORDERS COLD SX Reason for Visit Upper respiratory in fection Aortic stenosis Essential hypertension Atherosclerotic heart disease of [place] coronary artery without angina pectoris Hyperlipidemia Paroxysmal atrial fibrillation Presence of stent in coronary artery CKD (chronic kidney disease) stage 3, GFR 30-59 ml/min Hypothyroidism Type 2 diabetes mellitus Chief Complaint 10-12 MO F/U EORDER MURMUR 6 M FU EORDERS COLD SX [facility] ER FU 1 W FU Reason for Visit Aortic stenosis Essential hypertension Atherosclerotic heart disease of [place] coronary artery without angina pectoris Hyperlipidemia Paroxysmal [...] ILEUS,PANCREATITS,SALVATORE ILEUS,PANCREATITS,SALVATORE ILEUS,PANCREATITS,SALVATORE ILEUS,PANCREATITS,SALVATORE ILEUS,PANCREATITS,SALVATORE ILEUS,PANCREATITS,SALVATORE ILEUS,PANCREATITS,SALVATORE [facility] FU - KEEP 1HR Reason for [...] ILEUS,PANCREATITS,SALVATORE ILEUS,PANCREATITS,SALVATORE ILEUS,PANCREATITS,SALVATORE ILEUS,PANCREATITS,SALVATORE ILEUS,PANCREATITS,SALVATORE ILEUS,PANCREATITS,SALVATORE ILEUS,PANCREATITS,SALVATORE [facility] FU - KEEP 1HR allergic rxn [...] 2 diabetes mellitus Atherosclerotic heart disease of [place] coronary artery without angina pectoris Essential hypertension Hypothyroidism Paroxysmal atrial fibrillation 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 GFR 30-59 Immunization due Smokes cigarettes Establishing care with new doctor, encounter for Bipolar disorder Chronic cough Anemia Polyneuropathy due to type 2 diabetes mellitus Atherosclerotic heart disease of [place] coronary artery without angina pectoris Essential hypertension [...] coronary artery Dizziness Atherosclerotic heart disease of [place] coronary artery without angina pectoris Essential hypertension [...] coronary artery Dizziness Atherosclerotic heart disease of [place] coronary artery without angina pectoris Essential hypertension [...] coronary artery Dizziness Atherosclerotic heart disease of [place] coronary artery without angina pectoris Essential hypertension [...] FALLS, SALVATORE June 18, 2024 1 1:58am [facility] FU July 24, 2024 11:1 9am [...] Hospital discharge follow-up July 24, 2024 11:19am Jecgl-dp-ylbzfco kidney injury July 11:19am Paralytic ileus July [...] FALLS, SALVATORE June 18, 2024 1 1:58am [facility] July 24, 2024 11:1 9am [...] SALVATORE June 16, 2024 7 :59pm FALLS, SALAVTORE June 17, 2024 5 :41pm FALLS, SALVATORE June 18, 2024 1 1:58am [facility] July 24, 2024 11:1 9am [...] 2024 11:1 9am GERD (gastroesophageal reflux disease) [facility] 2024 11:19am Debility July 24, 2024 11:1 9am Hospital discharge follow-up July 24, 2024 11:19am Xopzn-tp-gibjyiw kidney injury July 11:19am Paralytic ileus July 24, 2024 11:1 9am Lactic acidosis September 17, 2024 10: 19pm Chief Complaint Admit Date [facility]U July 24, 2024 11:1 9am [...] 2024 11:1 9am GERD (gastroesophageal reflux disease) [facility] 2024 11:19am Debility July 24, 2024 11:1 9am Hospital discharge follow-up July 24, 2024 11:19am Waykl-et-yjdadqn kidney injury July 11:19am Paralytic ileus July [...] patient states stools are dark. Patientstates her Acid Leveler wated her to ask about Ozempic with her bowel issues. Additional Source Comments INFORMATION SOURCE (unrecogn ized section and content) DATE CREATED AUTHOR 11/15/2017 [facility] DATE CREATED AUTHOR AUTHOR'S ORGANIZ ATION 11/15/2017 [facility] DATE CREATED AUTHOR AUTHOR'S ORGANIZ ATION 03/30/2019 [facility] DATE CREATED AUTHOR AUTHOR'S ORGANIZ ATION 08/09/2019 [facility] DATE CREATED AUTHOR AUTHOR'S ORGANIZ ATION [facility]/31/[facility] DATE CREATED AUTHOR AUTHOR'S ORGANIZ ATION [facility] DATE CREATED AUTHOR AUTHOR'S ORGANIZ ATION 09/20/2021 [facility] DATE CREATED AUTHOR AUTHOR'S ORGANIZ ATION 09/24/2021 [facility] DATE CREATED AUTHOR AUTHOR'S ORGANIZ ATION 09/26/2021 [facility] DATE CREATED AUTHOR AUTHOR'S ORGANIZ ATION 02/21/2022 [facility] DATE CREATED AUTHOR AUTHOR'S ORGANIZ ATION 03/26/2022 [facility] DATE CREATED AUTHOR AUTHOR'S ORGANIZ ATION 08/21/2022 [facility] DATE CREATED AUTHOR AUTHOR'S ORGANIZ ATION 01/10/2025 [facility] Reason for Visit (unrecogniz ed section and [...] type Fatigue, unspecified type 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 jail current use of non-steroidal anti-inflammatories (NSAID) Hypertension, unspecified type Gastroesophageal reflux disease, esophagitis presence not specified Hypothyroidism, unspecified type Type II diabetes mellitus with neurological manifestations Lower abdominal pain Procedures EMG & NERVE CONDUCTION Timur Naranjo, Bassem Mix, DO [address] [place] [address] Reason Comments Labs Only Reason Comments Itching [...] US RENAL RETROPERITONEAL Vladimir Landon DO [address] [place] [address] [facility] [address] [place] [phone] Status Reason Specialty Diagnoses / Procedures Referre d By Contact Referred To Contact Closed Ultrasound Diagnoses Acute renal failure, unspecified acute renal failure type Procedures US PELVIS LIMITED DipeshVladimir [address] [place] [id number] [facility] [address] [place] [phone] Reason Comments Hand Pain B hand numbness [...] both shoulders Timur Naranjo, Bassem Mix DO [address] [place] [phone] Bravo Cote MD [address] [place] [id number] Reason Comments Follow-up Pain Reason Comments Follow-up Pre Op - Right CTS - Sx 06/06/19 Status Reason Specialty Diagnoses / Procedures Referred By Contact Referred To Contact Closed Cardiovascular Medicine Diagnoses Pre-operative clearance Atherosclerosis of [place] coronary artery of [place] heart, angina presence unspecified Old myocardial infarction Mitral valve prolapse Abnormal electrocardiogram Precordial pain Procedures ECHOCARDIOGRAM WA ECHO HEART XTHORACIC,COMPLETE W DOPPLER Sherwin Cali II, MD [address] [place] [address] [facility] [address] [place] [address] Status Reason Specialty Diagnoses / Procedures Referred By Contact Referred To Contact Closed Cardiovascular Medicine Diagnoses Abnormal electrocardiogram Atrial premature contractions Palpitations Procedures HOLTER MONITOR - 24 HOUR Sherwin Cali II, MD [address] [place] [address] [facility] [address] [place] [address] Status Reason Specialty Diagnoses / Procedures Referre d By Contact Referred To Contact Closed Ultrasound Diagnoses Intermittent claudication Pre-operative clearance Atherosclerosis of [place] coronary artery of [place] heart, angina presence unspecified Procedures US DOPPLER ARTERIAL LEGS BILATERAL Sherwin Cali II, MD [address] [place] [address] [facility] [address] [place] [phone] Status Reason Specialty Diagnoses / Procedures Re ferred By Contact Referred To Contact Closed Cardiovascular Medicine Diagnoses Pre-operative clearance Atherosclerosis of [place] coronary artery of [place] heart, angina presence unspecified Old myocardial infarction Abnormal electrocardiogram Precordial pain Procedures ECHOCARDIOGRAM PHARMACOLOGICAL STRESS TEST WA ECHO TTHRC R-T 2D W/WO M-MODE REST&STRS CONT ECG WA DOPPLER ECHO HEART,LIMITED,F/U WA DOPPLER COLOR FLOW VELOCITY MAP Sherwin Cali II, MD [address] [place] [address] [facility] [address] [place] [id number] Reason Comments Pain Follow-up Reason Comments Follow-up Pre-op right CTR Status Reason Specialty Diagnoses / Procedures Referre d By Contact Referred To Contact Diagnoses Carpal tunnel syndrome on right Carpal tunnel syndrome on right [G56.01] Procedures WA REVISE MEDIAN N/CARPAL TUNNEL SURG DECOMPRESSION TRANSPOSITION MEDIAN NERVE Bravo Cote MD [address] [place] [phone] Reason Comments Post Op Visit OR date [...] shoulders Timur Naranjo, Bassem Mix, DO [address] [place] [phone] Hugo Murray, DO [address] [place] [phone] Reason Comments Joint Pain Patient is an add on , hasnt been seen in over a year, states that her medication no longer works. Patient states that she is in a lot of pain. Specialty Diagnoses / Procedures Referred By Jos t Referred To Contact Cardiology Diagnoses Coronary artery disease involving [place] coronary artery, unspecified whether angina present, unspecified whether [place] or transplanted heart Angina pectoris (HCC) Pre-operative cardiovascular examination Procedures ECG 12 Lead Anton Zuñiga MD [address] [facility] [address] [place] [address] Referral ID Status Reason Start Date Expiration Date Visits Re quested Visits Authorized [id number] Closed 08/27/2021 08/27/2022 1 1 Bravo Cote [...] 50 years ago had from food Hyperlipidemia ID (myocardial infarction) reports small over ten years [...] file Gets together: Not on file Attends episcopal service: Not on file Active member of [...] section and content) SURGEON: Adrián Cote M.D. STORE OPERATIONS SPECIALIST: None. PREOPERATIVE DIAGNOSIS: Right carpal tunnel syndrome. POSTOPERATIVE DIAGNOSIS: Right carpal tunnel syndrome. PROCEDURE: Right carpal tunnel release using [id number] safeguard system. CPT 27411 ANESTHESIA: Local with sedation. ESTIMATED BLOOD LOSS: [...] Role: * Bravo Cote MD - Primary Hearing Care Practitioner: * No surgical staff found * ANESTHESIA [...] Active Member Role Status Dates Devi Delgado SAIL MAKER, SAIL MAKER-C Primary Care Provider Active Team Status: Inactive Member Role Status Dates Dr. Pat Bennett MD Referring Provider Active Devi Danny SAIL MAKER, SAIL MAKER-C Primary Care Provider, Attending P rovider Active Team Status: Inactive Member Role Status Dates Devi Delgado SAIL MAKER, SAIL MAKER-C Primary Care Provider, Referring P rovider Active Dr. Seven Garcia MD Attending Provider Active Team Status: Inactive Member Role Status Dates Devi Delgado SAIL MAKER, SAIL MAKER-C Primary Care Provider Active Dr. Jozef Brar DO Attending Provider, Emergency Provider Active Team Status: Inactive Member Role Status Dates Devi Delgado SAIL MAKER, SAIL MAKER-C Primary Care Provider Active Dr. Denise Uribe MD Attending Provider, Referring Provider Active Team Status: Inactive Member Role Status Dates Devi Delgado SAIL MAKER, SAIL MAKER-C Primary Care Provide r, Attending Provider, Referring Provider Active Hvac Controls Technician Relationship Specialty Start Date End Date No, Physician [facility] PCP - General 02/24/21 Hvac Controls Technician Relationship Specialty Start Date End Date No, Physician [facility] PCP - General 02/24/21 Hvac Controls Technician Relationship Specialty Start Date End Date No, Physician [facility] PCP - General 02/24/21 Hvac Controls Technician Relationship Specialty Start Date End Date No, Physician [facility] PCP - General 02/24/21 Team Status: Active [...] Provider, Referri ng Provider Active Devi Delgado SAIL MAKER, SAIL MAKER-C Attending Provider Active Team Status: Inactive Member Role Status Dates Dr. Pat Bennett MD Primary Care Provider Active Dr. Asif Marie DO Attending Provider, Referring P rovider Active Team Status: Inactive Member Role Status Dates Devi Delgado SAIL MAKER, SAIL MAKER-C Primary Care Provider Active Dr. Jozef Brar DO Emergency Provider Active Team Status: Active Member Role Status Dates Dr. Denise Uribe MD Primary Care Provider Active Team Status: Inactive Member Role Status Dates Devi Danny SAIL MAKER, SAIL MAKER-C Referring Provider Active Dr. Seven Garcia MD Attending Provider Active Dr. Denise Uribe MD Primary Care Provider Active Team Status: Inactive Member Role Status Dates Devi Delgado SAIL MAKER, SAIL MAKER-C Referring Provider Active Humaira Bae PA, PA Attending Provider Active Dr. Denise Uribe MD Primary Care Provider Active Team Status: Inactive Member Role Status Dates Devi Delgado SAIL MAKER, SAIL MAKER-C Primary Care Provider, Referring P rovider Active Dr. Denise Uribe MD Attending Provider Active Team Status: Inactive Member Role Status Dates Devi Delgado SAIL MAKER, SAIL MAKER-C Referring Provider Active Dr. Denise Uribe MD [...] Active Start: May 15, 2024 Dr. Davie Clyaton MD Other Provider Active St art: May [...] BE BASED ON THE PRIMARY CLINICAL RECORDS. [employer] [facility]. provides no warranty or guarantee of the accuracy or completeness of information in this document.
[2025-02-06 08:20] LABS: HIV Nonreactive (Nonreactive); Hepatitis B Surface Antigen Nonreactive (Nonreactive); Hepatitis C Antibody Nonreactive (Nonreactive)
== END | disposition home or self-care (01) ==
LOC: ED 06:39
PROVIDERS: PCP Internal Medicine; Visit Provider Emergency Medicine
DX: Z77.21 Contact with and (suspected) exposure to potentially hazardous body fluids (principal)
CPT/HCPCS: 36415; 86703; 86704; 86706; 86803; 87340